=== PATIENT | female | born 1945 | race Caucasian/White ===

== ENCOUNTER 2019-12-29 15:44 | Outpatient (CLI) | payer MEDICARE, SELFPAY ==
--- NOTE | ~2019-12-29 | XR_ITS ---
XR hip RT min 3V w AP pelvis DATE: 12/29/2019 16:18 INDICATION: Right hip pain. No injury. Bilateral hip replacements. Sacroiliitis. TECHNIQUE: AP pelvis. AP, lateral, crosstable lateral views of right hip COMPARISON: 10/27/2014 right hip MRI arthrogram FINDINGS: Status post lower lumbar laminectomy. Status post posterior and interbody lumbar spinal fus ion. Mild osteitis pubis. The sacroiliac joints appear intact. No pelvic fracture or bone destruction. Status post bilateral total hip replacement. No fracture or dislocation of the right hip. [facility] of lumbar or hip hardware failure, displacement or loosening is noted. IMPRESSION: Status post bilateral total hip arthroplasties Posterior and interbody lumbar spinal fusion Mild osteitis pubis Reviewed, dictated and finalized at location A.
== END 2019-12-29 15:45 | disposition home or self-care (01) ==
LOC: ANHIMG 15:49
PROVIDERS: PCP Internal Medicine; Visit Provider Internal Medicine
DX: M46.1 Sacroiliitis, not elsewhere classified (principal); M25.551 Pain in right hip; Z96.643 Presence of artificial hip joint, bilateral; Z98.1 Arthrodesis status; M86.8X8 Other osteomyelitis, other site
CPT/HCPCS: 73502

== ENCOUNTER 2020-01-03 15:45 | Outpatient (CLI) | payer MEDICARE, SELFPAY ==
--- NOTE | ~2020-01-03 | XR_ITS ---
EXAMINATION: XR sacrum coccyx min 2V, XR lumbar spine 6V w bending EXAM DATE: 01/03/2020 16:26 (accession [id number]), 01/03/2020 16:27 (accession [id number]) INDICATION: Low back pain radiating to right hip. TECHNIQUE: Lumber spine frontal, lateral, bilateral oblique projections. Coned down frontal and lat eral L5-S1 lumbar projections for interpretation. Additional lateral flexion and lateral extension p rojections obtained. Sacral frontal, frontal and lateral, lateral projections obtained. There are no prior studies for comparison. FINDINGS: There is moderate bilateral sacroiliac primary osteoarthritis. There is left iliac crest bone harves t site. Sacrum, sacroiliac joints, sacral arcuate lines are intact. Bilateral hip replacements. There is posterior fusion L2-L4, interbody fusion L2-S1. Hardware appears intact and in position. The re is 5 mm anterolisthesis L4 on L5, 4 mm anterolisthesis L3 on L4, 3 mm retrolisthesis L2 on L3. The subluxations do not appear to change much between the flexion and extension projections. Mild to mod erate lower thoracic disc disease. Lower lumbar laminectomies. Mild lumbar levoscoliosis. IMPRESSION: 1. Extensive surgical changes. 2. Mild lumbar levoscoliosis. 3. Moderate sacroiliac osteoarthritis. Reviewed, dictated and finalized at location A. IMPRESSION: 1. Extensive surgical changes. 2. Mild lumbar levoscoliosis. 3. Moderate sacroiliac osteoarthritis.
== END 2020-01-03 15:46 | disposition home or self-care (01) ==
LOC: ANHIMG 15:48
PROVIDERS: PCP Internal Medicine; Visit Provider Internal Medicine
DX: M54.5 Low back pain (principal); M25.551 Pain in right hip; Z98.890 Other specified postprocedural states; M41.86 Other forms of scoliosis, lumbar region; M47.898 Other spondylosis, sacral and sacrococcygeal region
CPT/HCPCS: 72114; 72220

== ENCOUNTER → 2020-02-14 12:11 | Outpatient (CLI) | payer MEDICARE, SELFPAY ==
--- NOTE | ~2020-02-14 | DEXA_ITS ---
Bone Density Report Name: Macie Briseno Age: 74 Sex: Female Ethnicity: White Date of : 1945 Indication: postmenopausal; screening for osteoporosis; height loss; Referring Provider: Enmanuel Gan Study: Bone densitometry was performed. Exam Date: February 14, 2020 Accession number: [id number] Bone Density: Region BMD T-score Z-score Classification Total Forearm (Left) 0.514 -1.0 1.5 1/3 Forearm (Left) 0.646 -0.7 1.8 UD Forearm (Left) 0.365 -0.9 0.9 Total Forearm (Right) 0.528 -0.7 1.8 1/3 Forearm (Right) 0.645 -0.7 1.8 UD Forearm (Right) 0.370 -0.8 1.0 World Health Organization criteria for BMD impression classify patients as: Normal (T-score at or above -1.0), Osteopenia (T-score between -1.0 and -2.5), or Osteoporosis (T-score at or below -2.5). Clinical Information Provided by Patient: Has used the following medications: Vitamin D, Calcium Patient maximum height was 66 Menopause Age: 56 Drinks caffeinated beverages Onset of menses at age 14 Number of children 0 Impression: The patient has normal bone mass. Discussion: BONE DENSITY IS ABOVE THE MINIMUM DESIRABLE LEVEL AT ALL SKELETAL SITES TESTED. This patient?s bone mineral density is above the minimum desirable level (T-score -1.0 or better) at all sites measured. The patient should follow a healthful lifestyle (good nutrition with adequate calcium and vitamin D, and appropriate weight-bearing exercise). Follow-Up: Consider repeating this study in 5 years or sooner if there is some new clinical indication. Reported by: JENNIFER on 02/14/2020 1:38:00 PM. Reviewed, dictated and finalized at location Miguel VALENZUELA
--- NOTE | ~2020-02-14 | MM_ITS ---
EXAMINATION: MM screening silvia BI w dari HISTORY: Screening mammogram TECHNIQUE: Craniocaudal and mediolateral oblique 3-D tomosynthesis images were obtained and synthetic 2-D images were generated. CAD analysis was submitted and interpreted. COMPARISON: Comparison to multiple prior studies sequentially, with oldest reviewed study dated 05/28. BREAST PARENCHYMAL COMPOSITION: Breast composed of scattered areas of fibroglandular density FINDINGS: There is developing asymmetries in the lower inner quadrant of the right breast. There are developing clustered calcifications in the upper outer quadrant of the left breast. IMPRESSION: 1. Developing right breast asymmetries and clustered nonspecific left breast calcifications. 2. Additional mammographic views and possible breast ultrasound are recommended. BI-RADS Category 0: Incomplete: Needs additional imaging evaluation. Reviewed, dictated and finalized at location A. IMPRESSION: 1. Developing right breast asymmetries and clustered nonspecific left breast ca lcifications. 2. Additional mammographic views and possible breast ultrasound are recommended . BI-RADS Category 0: Incomplete: Needs additional imaging evaluation.
== END ==
PROVIDERS: PCP Internal Medicine; Visit Provider Internal Medicine
DX: Z12.31 Encounter for screening mammogram for malignant neoplasm of breast (principal); Z78.0 Asymptomatic menopausal state; R92.8 Other abnormal and inconclusive findings on diagnostic imaging of breast
CPT/HCPCS: 77063; 77067; 77081

== ENCOUNTER 2020-03-01 08:04 | Outpatient (CLI) | payer MEDICARE, SELFPAY ==
[2020-03-04 08:13] LABS: C-Peptide 2.09 ng/mL (0.80-3.85); Triiodothyronine T3 Free 2.7 pg/mL (2.3-4.2)
[2020-03-09 06:31] LABS: Insulin Level Total 8.2 uIU/mL (<=19.6)
== END 2020-03-01 08:05 | disposition home or self-care (01) ==
PROVIDERS: Visit Provider Internal Medicine
DX: R94.6 Abnormal results of thyroid function studies (principal); R73.03 Prediabetes
CPT/HCPCS: 36415; 83525; 84481; 84681

== ENCOUNTER → 2020-03-07 09:26 | Outpatient (CLI) | payer MEDICARE, SELFPAY ==
--- NOTE | ~2020-03-07 | MMUS_ITS ---
EXAMINATION: MM diagnostic mammo BI, US breast RT limited HISTORY: Follow-up right breast asymmetries and left breast calcifications TECHNIQUE: Additional 3-D tomosynthesis images of the breasts were performed and synthetic 2-D images were generated. CAD analysis was submitted and interpreted. High resolution right breast ultrasound was performed. COMPARISON: Comparison to multiple prior studies sequentially, with oldest reviewed study dated 05/28. BREAST PARENCHYMAL COMPOSITION: The breasts are heterogenously dense, which may obscure small masses. FINDINGS: MAMMOGRAPHIC FINDINGS: The focal asymmetries in the right breast medially and inferiorly are less apparent with spot carlos mukesh and mediolateral views. No discrete mass or architectural distortion is seen. Left breast calcif ications have a relatively monomorphic appearance and are likely benign. ULTRASOUND: Limited right breast ultrasound: Normal heterogeneous echotexture without focal mass. IMPRESSION: 1. Probable benign right breast asymmetries and left breast calcifications. 2. Recommend 6 month follow-up diagnostic bilateral mammogram. BI-RADS category 3, probably benign findings. Reviewed, dictated and finalized at location A. IMPRESSION: 1. Probable benign right breast asymmetries and left breast calcifications. 2. Recommend 6 month follow-up diagnostic bilateral mammogram. BI-RADS category 3, probably benign findings.
--- NOTE | ~2020-03-07 | US_ITS ---
EXAMINATION: US thyroid DATE: 03/07/2020 10:31 INDICATION: Abnormal thyroid function test. TECHNIQUE: Multiple ultrasound images of the thyroid were obtained. COMPARISON: None. FINDINGS: The right thyroid lobe measures 3.9 x 1.3 x 1.4 cm. The left thyroid lobe measures 4.0 x 1.3 x 1.3 c m. In the left thyroid lobe, there is a 7 mm solid, very hypoechoic, twpjh-kchq-vuft nodule with lob ulated margin without echogenic foci (TI-RADS TR5). In the left thyroid lobe, there is a 5 mm solid, hypoechoic, zqrmy-urmq-jbkj nodule with ill-defined margin without echogenic foci (TR4). In the right thyroid lobe, there is a 9 mm solid, very hypoechoic, ocrvu-obyt-rtmv nodule with lobulated margin w ithout echogenic foci (TR5). IMPRESSION: 1. Small thyroid nodules. Thyroid ultrasound is recommended in one year. Reviewed, dictated and finalized at location B.
== END ==
PROVIDERS: PCP Internal Medicine; Visit Provider Internal Medicine
DX: R92.8 Other abnormal and inconclusive findings on diagnostic imaging of breast (principal)
CPT/HCPCS: 76536; 76642; 77066

== ENCOUNTER 2020-06-27 14:27 | Outpatient (CLI) | payer MEDICARE, SELFPAY ==
[2020-06-27 15:11] LABS: Basophils Absolute Auto 0.1 K/mm3 (0.0-0.1); Basophils Percent Auto 0.6 % (0.2-1.2); Eosinophils Absolute Auto 0.2 K/mm3 (0-0.3); Eosinophils Percent Auto 2.3 % (0-4.4); Hemoglobin 16.4 g/dL (12.0-15.0); Immature Granulocyte Absolute 0.06 K/mm3 (0.00-0.031); Immature Granulocyte Percent A 0.7 % (0-0.5); Lymphocytes Absolute Auto 2.99 K/mm3 (0.9-3.2); Mean Corpuscular HGB Conc 34.9 g/dl (32-36); Mean Corpuscular Hemoglobin 29.7 pg (26-34); Mean Corpuscular Volume 85.1 fl (80-100); Mean Platelet Volume 9.5 fl (7.4-10.4); Monocytes Absolute Auto 0.7 K/mm3 (0.1-0.6); Monocytes Percent Auto 7.7 % (2.6-8.5); Neutrophils Absolute Auto 4.8 K/mm3 (1.3-6.7); Neutrophils Percent Auto 54.7 % (45.5-73.1); Platelet Count Result 372 k/mm3 (150-375); Red Blood Count 5.52 M/mm3 (4.2-5.4); Red Cell Distribution Width 12.9 % (11.5-14.5); White Blood Count 8.8 K/mm3 (4.5-10.0)
[2020-06-27 15:29] LABS: Anion Gap 7 mmol/L (8-16); Blood Urea Nitrogen 23 mg/dL (7-17); Calcium 9.6 mg/dL (8.4-10.2); Carbon Dioxide 34 mmol/L (22-30); Chloride 94 mmol/L (98-107); Estimated Glomerular Filt Rate > 60; Glucose 108 mg/dL (65-105); Potassium 3.3 mmol/L (3.4-5.0); Sodium 135 mmol/L (137-145)
== END 2020-06-27 14:28 | disposition home or self-care (01) ==
PROVIDERS: PCP Internal Medicine; Visit Provider Internal Medicine
DX: Z51.81 Encounter for therapeutic drug level monitoring (principal); Z79.899 Other long term (current) drug therapy; R07.89 Other chest pain
CPT/HCPCS: 36415; 80048; 84484; 85025

== ENCOUNTER 2020-06-27 16:30 | Observation (INO) | payer MEDICARE, SELFPAY ==
[2020-06-27] VITALS (23 sets, daily range): BP systolic 117–150; BP diastolic 64–94; PULSE 60–108; RESP 10–26; TEMP 36.4–36.6; O2SAT 92–98; BMI 28.3
--- NOTE | ~2020-06-27 | NM_ITS ---
EXAMINATION: NM christi stress w perfusion DATE: 06/28/2020 15:17 INDICATION: Chest pain. TECHNIQUE: Rest images were obtained following intravenous administration of 10.8 mCi Tc99m tetrofosm in (Myoview). The patient was infused intravenously with Lexiscan (regadenoson). Then, 33.3 mCi Tc99m tetrofosmin (Myoview) was administered intravenously, and stress images were obtained. Data was elijah nstructed into short axis and horizontal and vertical long axis SPECT images. Gated SPECT images were also obtained. COMPARISON: None. FINDINGS: There is no definite reversible or fixed perfusion abnormality to suggest ischemia or infar ction. There is no segmental wall motion abnormality. Left ventricular ejection fraction measures > 70%. IMPRESSION: 1. No definite ischemia or infarct. 2. Normal left ventricular ejection fraction measuring >70%. Reviewed, dictated and finalized at location A. OLL AND BENEFITS ASSISTANT
--- NOTE | ~2020-06-27 | XR_ITS ---
EXAMINATION: XR chest 1V portable DATE: 06/27/2020 17:18 INDICATION: Chest pain. Dizziness. TECHNIQUE: A single frontal view of the chest was obtained. COMPARISON: Chest 2 views 10/26/18, chest CT 02/12/2018 FINDINGS: There is mild atelectasis in left lower lung zone. No pleural effusion or pneumothorax. The heart size is normal. Surgical clips in the right upper quadrant are likely from cholecystectomy. IMPRESSION: 1. Mild atelectasis in left lower lung zone. Reviewed, dictated and finalized at location A. ING SUPERVISOR
--- NOTE | 2020-06-27 16:34 | ECG_ITS ---
Measurements Intervals [place] Rate: 93 P: 7 OH: 156 QRS: 41 QRSD: 91 T: 111 QT: 362 QTc: 451 Interpretive Statements SINUS RHYTHM SUPRAVENTRICULAR TRIGEMINY BORDERLINE ST-T WAVE ABNORMALITY- HIGH LATERAL LEADS BASELINE ARTIFACT- AVL ABNORMAL ECG Electronically Signed On 06-27-2020 19:49:22 DRIVER SALES by Ajit Champagne D.O.
[2020-06-27 17:05] LABS: INR 0.9; Prothrombin Time 13.1 Seconds (11.1-14.7)
[2020-06-27 17:06] LABS: Partial Thromboplastin Time 25.6 SECONDS (22.3-36.8)
[2020-06-27 17:25] LABS: Troponin I 0.103 ng/mL (0.000-0.034)
--- NOTE | 2020-06-27 17:32 | ED.GENADULT ---
HPI - General Adult General Chief complaint: Recheck/Abnormal Lab/Rx Stated complaint: Abnormal Blood Test Time Seen by Provider: 06/27/20 16:34 Source: RN notes reviewed History of Present Illness HPI narrative: Patient presents emergency department from home for chest pain. Patient states she awoke at approximately 3 AM yesterday with pain in the midsternal chest described as a pressure states the pain did not radiate. 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 Houston at [facility]. She went and saw her PCP Dr. Pa today and he had drawn a troponin that was elevated and sent the patient to the ED for further evaluation patient states she is had no pain since this a.m. she denies any fevers or chills shortness of breath or any other symptoms Related Data Home Medications Medication Instructions Recorded Confirmed alprazolam 0.5 mg tablet 0.5 mg PO TID 10/03/19 06/27/20 calcium polycarbophil 625 mg tablet 1,250 mg PO DAILY 10/03/19 06/27/20 cetirizine 10 mg tablet 5 mg PO DAILY PRN 10/03/19 06/27/20 cholecalciferol (vitamin D3) 125 5,000 unit PO DAILY 10/03/19 06/27/20 mcg (5,000 unit) capsule coenzyme Q10 100 mg capsule 100 mg PO DAILY 10/03/19 06/27/20 fluticasone propionate 50 2 spray NASAL DAILY 10/03/19 06/27/20 mcg/actuation nasal spray,suspension inulin 2 gram chewable tablet gm PO 10/03/19 06/27/20 magnesium citrate 100 mg tablet 100 mg PO BID 10/03/19 06/27/20 turmeric root extract 500 mg 500 mg PO TID 10/03/19 06/27/20 capsule vitamin B complex 1 tablet PO DAILY 10/03/19 06/27/20 Allergies Allergy/AdvReac Type Severity Reaction Status Date / Time adhesive tape Allergy Unknown RASH Verified 06/27/20 13:39 Sulfa (Sulfonamide Allergy Unknown Rash Verified 06/27/20 13:39 Antibiotics) gabapentin AdvReac Mild Swelling Verified 06/27/20 13:39 Review of Systems Review of Systems: Narrative: Gen.: Denies fevers or chills ENT: Denies congestion Respiratory: Denies shortness of breath or cough CV: See HPI GI: Denies abdominal pain nausea, emesis or diarrhea Musculoskeletal: Denies back pain or muscle pain Neuro: Denies numbness, tingling, weakness or focal weakness Skin: Denies rash Except as documented, all other systems reviewed and negative [facility] Past Medical History Medical History BMI 28.0-28.9,adult BMI 29.0-29.9,adult Borderline abnormal TFTs Chest pain Chronic right hip pain Cochlear implant in place Colon cancer screening Depression Dizziness DJD (degenerative joint disease) Encounter for screening mammogram for malignant neoplasm of breast Encounter to establish care Follow up Hair loss Hyperlipidemia Menieres disease Microvascular angina 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 Lung cancer Social History Social History Social History: non smoker Smoking status: Never smoker Alcohol intake: current Substance use: never Exam Narrative: Exam Narrative: APPEARANCE: No acute distress, nontoxic, resting in bed EYES: EOMI HEENT: Normocephalic, atraumatic, OMM RESPIRATORY: No respiratory distress Clear to auscultation bilaterally with no rhonchi wheezing or rales. CARDIOVASCULAR: Regular rate and rhythm without murmurs rubs or gallops. ABDOMINAL: S
[2020-06-27] MEDS: ASPIRIN 81 MG CHEWABLE TABLET 324 MG PO (17:45)
--- NOTE | 2020-06-27 17:55 | PC.NURSE ---
patient here in ED room 10 with c/o chest discomfort around 0300 today. was seen by PCP. had outpatient labs done that reportedly showed elevated trop level. patient sent to ED. labs here drawn at 1630 per patient. resting on stretcher. alert. on organic preparation technician. EKG done. reviewed current treatment plan with patient and expected wait time.
--- NOTE | 2020-06-27 18:30 | PC.NURSE ---
SL inserted. additional labs drawn. patient aware she is NPO for now. denies chest pain. on mold preparer. denies needs. call light in reach.
[2020-06-27] MEDS: POTASSIUM CHLORIDE 20 MEQ TABLET PO (19:01)
--- NOTE | 2020-06-27 19:20 | PC.NURSE ---
reviewed lab results with patient again. trop elevated. patient verbalizes understanding. aware of plan for admission. pain free. alert. oriented. notified her family. waiting for further orders from MD and for bed assignment upstairs.
[2020-06-27 19:39] LABS: Troponin I 0.107 ng/mL (0.000-0.034)
--- NOTE | 2020-06-27 19:50 | PC.NURSE ---
resting on stretcher. updated on expected wait time. denies needs. on monitor. has call light in reach.
--- NOTE | 2020-06-27 20:20 | PM.IMHP ---
H&P: HPI History of Present Illness Date/Time: 06/27/20 20:20 Chief complaint: Chest pain. Narrative: Macie Briseno is a very pleasant 74-year-old female with history of microvascular angina who presented to the emergency department earlier today for further evaluation of chest pain. She had a cochlear implant last week and was given a Medrol Dosepak thereafter ?which gave me a lot of stomach discomfort.? It sounds as though she has suffered from indigestion since that time and this morning she was wakened from sleep at approximately 03:00 with discomfort in her back and mid to low sternal region. She describes to me a burning discomfort however apparently reported to the ED physician that she was having pressure. She got out of bed and took her diltiazem and within about an hour the discomfort went away and it has not returned. She spoke with her primary care provider this morning regarding this incident and he saw her in clinic in ordered a troponin which came back elevated, and thus she was sent to the emergency department. Repeat troponin was slightly more elevated and she is being admitted in this setting. She has no complaints at the time my evaluation and specifically denies sweats, chest pain, pleuritic pain, shortness of breath, nausea, and vomiting. No melena or hematochezia. Review of Systems Review of Systems: Narrative: Twelve systems were reviewed with pertinent positives and negatives as per HPI. No fever, chills, or sweats. She denies recent cold and flu symptoms. She had a cochlear implant on the left just last week and is amazed by the amount that she can hear. She lost her hearing due to Meniere's disease bilaterally many years ago. Her director of institutional research is Dr. Tg Houston at [facility], and I believe she last saw her in May 2019 prior to a low back surgery. She rarely has issues with angina although it is been increasing in frequency over the past year or so. Except as documented, all other systems were reviewed and are negative. [facility] Past Medical History Medical History (Updated 06/28/20 @ 00:42 by Eliana Syed PA-C) Chronic right hip pain Degenerative joint disease Depression Hyperlipidemia Hypertension Menieres disease Microvascular angina Peripheral neuropathy Post menopausal syndrome Pre-diabetes Sacroiliitis Vitamin D deficiency Surgical History Surgical History (Updated 06/28/20 @ 00:42 by Eliana Syed PA-C) Cochlear implant in place (~05/2020) Left cochlear implant. History of back surgery Fused from L2-S1. History of cholecystectomy History of total replacement of both hip joints Family History Family History Mother , Lung cancer, smoker. Lung cancer Social History Social History (Updated 06/28/20 @ 00:42 by Eliana Syed PA-C) Social History: Surrogate decision maker: Sunita Miranda, spouse. Code status: Full code. Smoking status: Never smoker Alcohol intake: current Alcohol use details: Drinks alcohol socially and in moderation. Substance use: never Additional living arrangements comments: Resides in [place] with her , dog, and 2 cats. They have no children. 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 Gender identity (if verbalized by the patient): Female Spiritual care concerns: No Meds Home Medications and Allergies Home Medications Medication Instructions Recorded Confirmed Type alprazolam 0.5 mg tablet 0.5 mg PO TID 10/03/19 06/27/20 History calcium polycarbophil 625 mg tablet 1,250 mg PO DAILY 10/03/19 06/27/20 History cetirizine 10 mg tablet 5 mg PO DAILY PRN 10/03/19 06/27/20 History cholecalciferol (vitamin D3) 125 5,000 unit PO DAILY 10/03/19 06/27/20 History mcg (5,000 unit) capsule coenzyme Q10 100 mg capsule 100 mg PO DAILY 10/03/19 06/27/20 History fluti
--- NOTE | 2020-06-27 20:45 | PC.NURSE ---
spoke with Mariann HANEY in IMU. room is not clean. she has contacted housekeeping several times. no questions about patient's SBAR. will call us when the bed is clean. broker in charge is aware. patient notified. patient getting anxious. lunch box and sprite given. on child monitor. still denies any chest pain. alert. oriented. on child monitor.
--- NOTE | 2020-06-27 21:46 | ADMGEN ---
This patient, Macie Briseno, was admitted to IMU Room 202-01. Patient/family oriented to hospital policies and general routines including ID bracelet, bed and alarms, visiting hours, pain management, procedures, bathroom and other care routines, personal items, smoking policy, room service/diet, and visiting hours. Information on how to activate the Rapid Response Team has been discussed. Patient/Family are encouraged to report perceived risks to care and to ask questions if they do not understand what they are told or what they should do.
[2020-06-27 22:56] LABS: Troponin I 0.091 ng/mL (0.000-0.034)
[2020-06-28] VITALS (15 sets, daily range): BP systolic 105–130; BP diastolic 47–88; PULSE 70–111; RESP 14–18; TEMP 35.9–36.3; O2SAT 93–100
[2020-06-28] MEDS: SODIUM CHLORIDE 0.9% IV 1,000 ML 125 ML IV CONT (01:22)
[2020-06-28 05:02] LABS: Basophils Percent Auto 0.5 % (0.2-1.2); Eosinophils Absolute Auto 0.3 K/mm3 (0-0.3); Eosinophils Percent Auto 3.5 % (0-4.4); Hematocrit 40.3 % (37.0-47.0); Hemoglobin 14.3 g/dL (12.0-15.0); Immature Granulocyte Absolute 0.04 K/mm3 (0.00-0.031); Immature Granulocyte Percent A 0.5 % (0-0.5); Lymphocytes Absolute Auto 3.19 K/mm3 (0.9-3.2); Lymphocytes Percent Auto 43.2 % (18.3-44.2); Mean Corpuscular HGB Conc 35.5 g/dl (32-36); Mean Corpuscular Hemoglobin 29.4 pg (26-34); Mean Corpuscular Volume 82.8 fl (80-100); Mean Platelet Volume 9.6 fl (7.4-10.4); Monocytes Absolute Auto 0.7 K/mm3 (0.1-0.6); Monocytes Percent Auto 8.8 % (2.6-8.5); Neutrophils Absolute Auto 3.2 K/mm3 (1.3-6.7); Neutrophils Percent Auto 43.5 % (45.5-73.1); Platelet Count Result 347 k/mm3 (150-375); Red Blood Count 4.87 M/mm3 (4.2-5.4); Red Cell Distribution Width 12.6 % (11.5-14.5); White Blood Count 7.4 K/mm3 (4.5-10.0)
[2020-06-28 05:42] LABS: Anion Gap 5 mmol/L (8-16); Blood Urea Nitrogen 21 mg/dL (7-17); Calcium 8.6 mg/dL (8.4-10.2); Carbon Dioxide 33 mmol/L (22-30); Chloride 98 mmol/L (98-107); Estimated CRCL calculation 61 ml/min; Estimated Glomerular Filt Rate > 60; Glucose 96 mg/dL (65-105); Sodium 136 mmol/L (137-145)
[2020-06-28] MEDS: CHOLECALCIFEROL 1,000 UNITS TABLET 5000 UNITS PO (10:03)
[2020-06-28] MEDS: ASPIRIN 325 MG TABLET PO (10:03)
[2020-06-28] MEDS: ATORVASTATIN 20 MG TABLET PO (10:04)
[2020-06-28] MEDS: VITAMIN B COMPLEX CAPSULE 1 CAP PO (10:04)
[2020-06-28] MEDS: calcium polycarbophiL 625 MG TABLET 1250 MG PO (10:04)
[2020-06-28] MEDS: dilTIAZem HCL CD 180 MG CAP.ER.24H PO (10:04)
[2020-06-28] MEDS: DULoxetine HCL 60 MG CAPSULE.DR PO (10:05)
--- NOTE | 2020-06-28 10:13 | ECHO_ITS ---
Patient Info Name: Macie Briseno Age: 74 years : 1945 Gender: Female Ht: 64 in Wt: 163 lbs BSA: 1.85 m2 HR: 78 bpm BP: 120 / 64 mmHg Heart Rhythm: Sinus Rhythm Technical Quality: Fair Exam Date: 06/28/2020 10:55 AM Exam Location: [facility] Pulmonary Patient Status: Inpatient Admit Date: 06/27/2020 Staff Ordering Physician: Frankie Hawthorne MD Economic Research Analyst: Natividad Alvarez RDCS Attending Provider: Deepti Weathers MD Referring Physician: Christoph MORRIS; Exam Type: CA echo dop color flow w con Study Info Indications - elevated trops cp Complete two-dimensional, color flow and Doppler transthoracic echocardiogram is performed with contrast to opacify the left ventricle and to improve the deliniation of the left ventricle endocardial borders. Contrast/Agitated Saline Contrast/Ag. Saline: Definity Amount: 2.00 ml Administered By: Shiv Oates, RN Summary 1. Left ventricular systolic function is hyperdynamic, estimated at >70%. 2. There is mildly increased left ventricular wall thickness more prominent mid to apical LV but not clearly consistent with apical hypertrophic cardiomyopathy. 3. The left ventricular diastolic function is grade I diastolic dysfunction. 4. There is no aortic valve stenosis. 5. There is mild mitral valve regurgitation. 6. There is trace tricuspid valve regurgitation. 7. Unable to estimate PA systolic pressure due to poor spectral resolution of tricuspid regurgitant jet velocity. 8. There is small pericardial effusion with fibrinous material within the pericardial space. Left Ventricle Left ventricular chamber dimension is normal. Left ventricular systolic function is hyperdynamic, estimated at >70%. There is mildly increased left ventricular wall thickness more prominent mid to apical LV but not clearly consistent with apical hypertrophic cardiomyopathy. The left ventricular diastolic function is grade I diastolic dysfunction. Right Ventricle Right ventricular chamber dimension is normal. Right ventricular systolic function is normal. Left Atria Left atrial chamber dimension is normal. Right Atria Right atrial chamber dimension is normal. Aortic Valve The aortic valve is trileaflet. There is mild aortic valve sclerosis. There is no aortic valve stenosis. There is no aortic valve regurgitation. Pulmonic Valve The pulmonic valve is not well visualized. There is trace pulmonic regurgitation. Mitral Valve The mitral valve has normal leaflets. There is mild mitral valve regurgitation. Tricuspid Valve The tricuspid valve leaflets are normal. There is trace tricuspid valve regurgitation. Unable to estimate PA systolic pressure due to poor spectral resolution of tricuspid regurgitant jet velocity. Pericardium/Pleural The pericardium appears normal. There is small pericardial effusion with fibrinous material within the pericardial space. Inferior Vena Cava Normal inferior vena cava with >50% collapse upon inspiration consistent with normal right atrial pressure, 5 mmHg. Aorta The aortic root size at the sinus of Valsalva is normal. Left Ventricular Outflow Tract Name Value Normal LVOT 2D LV
--- NOTE | 2020-06-28 11:25 | EST_ITS ---
Patient Info Name: Macie Briseno Age: 74 years : 1945 Gender: Female Ht: 64 in Wt: 163 lbs BSA: 1.85 m2 Heart Rhythm: Sinus Rhythm Exam Date: 06/28/2020 2:00 PM Exam Location: [facility] Stress Patient Status: Inpatient Admit Date: 06/27/2020 Staff Ordering Physician: Ashlee Abdul APRN Attending Provider: Deepti Weathers MD Exercise Technologist: Yue Blackwell RDCS Exam Type: CA stress christi w NM Study Info Indications - elevated troponin A regadenoson stress test was performed. Summary 1. Nondiagnostic upsloping ST deviation which did not meet strict criteria for reversible myocardial ischemia. 2. Frequent PACs noted at rest and during stress. 3. Please correlate with nuclear medicine images, reported separately. 4. Chest tightness during stress associated with shortness of breath resolved with Aminophylline 3:36 min into recovery. Protocol: Lexiscan Stress ECG Details Stage: REST Duration (min): 1 min : 5 sec HR (bpm): 88 SBP (mmHg): 121 DBP (mmHg): 49 Stage: REST Duration (min): 4 min : 32 sec HR (bpm): 84 SBP (mmHg): 121 DBP (mmHg): 49 Stage: STAGE 1 Duration (min): 1 min : 0 sec HR (bpm): 96 SBP (mmHg): 125 DBP (mmHg): 59 Stage: RECOVERY Duration (min): 1 min : 0 sec HR (bpm): 104 SBP (mmHg): 117 DBP (mmHg): 53 Stage: RECOVERY Duration (min): 2 min : 0 sec HR (bpm): 100 SBP (mmHg): 114 DBP (mmHg): 47 Stage: RECOVERY Duration (min): 3 min : 0 sec HR (bpm): 103 SBP (mmHg): 105 DBP (mmHg): 47 Stage: RECOVERY Duration (min): 4 min : 0 sec HR (bpm): 102 SBP (mmHg): 105 DBP (mmHg): 47 Stage: RECOVERY Duration (min): 5 min : 0 sec HR (bpm): 98 SBP (mmHg): 125 DBP (mmHg): 59 Stage: RECOVERY Duration (min): 5 min : 49 sec HR (bpm): 94 SBP (mmHg): 125 DBP (mmHg): 59 Rest HR: 84 bpm Peak HR: 106 bpm Rest Sys BP: 121 mmHg Peak Sys BP: 125 mmHg Max Pred HR: 147 bpm % Max Pred HR: 72 % Target HR: 125 bpm Max RPP: 13,250 bpm*mmHg BP Response: Normal blood pressure response Termination Reason: Completed protocol Cardiac Symptoms: Chest discomfort, Shortness of breath Total Time: 1 min : 0 sec Rest Rosario BP: 49 mmHg Peak Rosario BP: 59 mmHg Total Dose: 0.4 mg Resting ECG Normal sinus rhythm. Nonspecific ST changes. Stress ECG Nondiagnostic upsloping ST deviation which did not meet strict criteria for reversible myocardial ischemia. Arrhythmias Frequent PACs noted at rest and during stress. Report Signatures Amended by Frankie Hawthorne on 06/28/2020 15:28
[2020-06-28] MEDS: PERFLUTREN LIPID MICROSPHERES 1.5 ML VIAL DILUTED TO 10 ML TOTAL VOLUME IV PUSH (11:54)
--- NOTE | 2020-06-28 13:30 | PM.CNCAR ---
Assessment and Plan Assessment and plan (1) Chest pain: Code(s): R07.9 - Chest pain, unspecified Status: Acute Assessment and Plan: patient relates being treated for microvascular angina. She had a negative stress test May [address] Houston. symptoms had essentially resolved with initiation of diltiazem which she takes consistently. Chest pain similar to prior symptoms although occurred at rest resolved once again with diltiazem. She has had no symptoms in nearly 36 hours, no acute ischemic changes on EKG, and a flat mild troponin elevation at 0.1. Bedside 2D echocardiogram questionable for apical hypokinesis. Discussed with the patient in detail further options including echocardiogram, invasive versus noninvasive ischemic evaluation, and/or if no other alternative explanation found possible cardiac MRI as an outpatient. No clinical history suggestive of myocarditis. Will pursue Lexiscan nuclear stress test to assess for myocardial ischemia with recommendations to follow. If unremarkable patient remains asymptomatic anticipate discharge home to follow up with Dr. Houston as an outpatient. Dr. Houston also felt proceeding with Lexiscan would be most prudent approach. -Add ASA 81mg daily. Cont statin and home CV med tx. -Repeat K+ - Further recommendations follow after Lexiscan nuclear stress test and 2D echocardiogram. (2) Elevated troponin: Code(s): R77.8 - Other specified abnormalities of plasma proteins Status: Acute Assessment and Plan: flat curve, not consistent with acute coronary syndrome as patient is asymptomatic and without acute ischemic changes by EKG. Precise etiology unclear at this time. even if secondary to significant coronary basal spasm troponin trend greater than 24 hours later is not clearly consistent. (3) Hypertension: Code(s): I10 - Essential (primary) hypertension Status: Acute Assessment and Plan: Fair control. Continue current medical therapy. (4) Hyperlipidemia: Qualifiers: Hyperlipidemia type: mixed hyperlipidemia Qualified Code(s): E78.2 - Mixed hyperlipidemia Code(s): E78.5 - Hyperlipidemia, unspecified Status: Acute Assessment and Plan: Continue atorvastatin. Check fasting lipid profile. History of Present Illness History of Present Illness Consult date/time: Date of service:06/28/20 13:30 Cardiology consultation at the request of Eliana Syed of the [facility] for my opinion regarding chest pain and elevated Troponin. Requesting physician: Eliana Syed PA-C Consult reason: chest pain Reason For Visit: Chest pain. Narrative: Patient is a very pleasant 74-year-old female with a history of microvascular angina followed by Dr. Houston as an outpatient, hypertension, dyslipidemia who was in her usual state of health when she presented with rather acute onset of chest discomfort approximately 3:00 a.m. evening prior to presentation. Patient states she has chronic back pain and awoke unable to sleep as a result prompting her to take Tylenol. She states approximately 15 minutes later she developed fairly severe burning discomfort in the mid to lower sternal region without radiation. Due to its persistence and similar to prior microvascular angina she took her diltiazem. She states within an hour the symptoms resolved and have not recurred. She denied exertional chest discomfort at any time over the past year or so. She admits she has been somewhat more fatigued with mild dyspnea with activity for the past several months she attributes to decreased activity due to pandemic restrictions. She denies particular limitation and otherwise feels fairly well. She had been evaluated by her PCP who ordered a troponin which returned 0.1 as an outpatient which the recommendation to present to the ER was made. Serial troponins were again 0.1, 0.1, and 0.91. She has no
--- NOTE | 2020-06-28 14:09 | PM.IMPN ---
Progress Note: A&P Assessment and Plan (1) Chest pain: Code(s): R07.9 - Chest pain, unspecified Status: Acute Assessment and Plan: Seen by cardiology, pt to have a lexiscan today. (2) Elevated troponin: Code(s): R77.8 - Other specified abnormalities of plasma proteins Status: Acute Assessment and Plan: trop 0.1, 0.09, cardiology rounding awaiting lexiscan results (3) Microvascular angina: Code(s): I20.8 - Other forms of angina pectoris Status: Acute Assessment and Plan: known history (4) Hypertension: Code(s): I10 - Essential (primary) hypertension Status: Chronic Assessment and Plan: Bp is 129/88, continue to monitor BP in the hospital. (5) Electrolyte abnormality: Code(s): E87.8 - Other disorders of electrolyte and fluid balance, not elsewhere classified Status: Acute Assessment and Plan: potassium is 3, sodium is 136 Subjective Date/time seen: 06/28/20 14:09 Interval history: Finn is a very pleasant 74-year-old female with history of microvascular angina who presented to the emergency department earlier today for further evaluation of chest pain. Pt to have lexiscan today.Pt is a pt of DR Houston. Review of Systems Review of Systems: All systems reviewed & are unremarkable except as noted in HPI and below Exam Const: General: cooperative and healthy appearing; No in distress Nutritional Appearance: overweight Orientation/consciousness: oriented to person HENMT: Head: normal to inspection Resp: Effort & Inspection: no respiratory distress Auscultation: no rhonchi and no wheezes Cardio: Rate: regular rate Rhythm: regular rhythm GI: Inspection: normal to inspection GI Palp: No abdominal tenderness, No Guarding due to palpation present (GI) and No Hepatomegaly present Auscultation: normal bowel sounds Neuro: General: oriented to person Objective Data Vital Signs Vital Signs: Vital Signs - 24 hr 06/27/20 16:45 06/27/20 17:31 06/27/20 17:32 Temperature 36.4 C L Pulse Rate 60 78 84 Respiratory Rate 14 17 17 Blood Pressure 132/65 117/72 Pulse Oximetry 96 96 95 06/27/20 18:02 06/27/20 18:15 06/27/20 18:16 Temperature Pulse Rate 88 77 83 Respiratory Rate 11 L 13 18 Blood Pressure 150/70 H Pulse Oximetry 97 92 96 06/27/20 18:17 06/27/20 19:59 06/27/20 20:00 Temperature Pulse Rate 84 85 79 Respiratory Rate 16 26 H 20 Blood Pressure Pulse Oximetry 92 97 96 06/27/20 20:02 06/27/20 20:03 06/27/20 20:27 Temperature Pulse Rate 78 77 84 Respiratory Rate 18 19 20 Blood Pressure 126/69 Pulse Oximetry 93 96 95 06/27/20 20:37 06/27/20 20:48 06/27/20 21:00 Temperature Pulse Rate 81 90 80 Respiratory Rate 10 L 14 22 H Blood Pressure Pulse Oximetry 97 97 06/27/20 21:02 06/27/20 21:23 06/27/20 21:31 Temperature Pulse Rate 75 82 80 Respiratory Rate 14 18 12 Blood Pressure 139/64 145/74 H Pulse Oximetry 98 96 97 06/27/20 21:32 06/27/20 22:00 06/27/20 22:23 Temperature 36.6 C Pulse Rate 79 73 73 Respiratory Rate 13 18 Blood Pressure 122/94 H Pulse Oximetry 94 92 06/27/20 22:24 06/27/20 23:06 06/28/20 00:00 Temperature Pulse Rate 73 108 H 85 Respiratory Rate 18 18 18 Blood Pressure Pulse Oximetry 92 93 06/28/20 02:00 06/28/20 04:00 06/28/20 05:53 Temperature 35.9 C L Pulse Rate 86 87 76 Respiratory Rate 18 Blood Pressure 120/64 Pulse Oximetry 98 06/28/20 08:00 06/28/20 12:00 Temperature 36.2 C L 36.3 C L Pulse Rate 79 70 Respiratory Rate 14 16 Blood Pressure 119/47 L 129/88 Pulse Oximetry 98 98 Intake/Output Intake/Output: Intake & Output 06/25/20 06/26/20 06/27/20 06/28/20 23:59 23:59 23:59 23:59 Output Total 400 Balance -400 Meds/Results Medications: Active Medications Generic Name Dose Route Start Last Admin Trade Name Freq PRN Reason Stop Dose Admin Hydrocodone
--- NOTE | 2020-06-28 16:42 | ECG_ITS ---
Measurements Intervals [place] Rate: 125 P: ND: 0 QRS: 46 QRSD: 94 T: 231 QT: 300 QTc: 434 Interpretive Statements ATRIAL FIBRILLATION WITH RAPID VENTRICULAR RESPONSE ST-T WAVE ABNORMALITY IN INF/LAT LEADS- CONSIDER ISCHEMIA BASELINE ARTIFACT- II, III, AVF ABNORMAL ECG Electronically Signed On 06-29-2020 6:48:02 [employer] by Ajit Champagne D.O.
[2020-06-28] MEDS: POTASSIUM CHLORIDE 20 MEQ TABLET 40 MEQ PO (17:27)
[2020-06-28] MEDS: dilTIAZem HCL 30 MG TABLET PO (17:28)
[2020-06-28] MEDS: MONTELUKAST SODIUM 10 MG TABLET PO (17:30)
[2020-06-28] MEDS: ALPRAZolam (*CRX) 0.5 MG TABLET PO (17:35)
--- NOTE | 2020-06-28 18:29 | PM.DS ---
DS: Admitting Diagnosis Admitting Diagnosis Admitting Diagnosis: DISCHARGE DATE IS 06/29/2020 Chest pain. DS: Discharge Diagnosis Discharge Diagnosis (1) Chest pain: Code(s): R07.9 - Chest pain, unspecified Status: Acute Assessment and Plan: Seen by cardiology, pt can lexiscan yesterday which was negative. While awaiting discharge from the hospitalist went into atrial fibrillation with rapid ventricular response. Pt was monitored overnite on telemetry and started on cardizem 30 mg every 6 hours. Potassium was low in hospital, so pt was started on potassium at 40 meq po qdaily. (2) Elevated troponin: Code(s): R77.8 - Other specified abnormalities of plasma proteins Status: Acute Assessment and Plan: trop 0.1, 0.09,pt seen by cardiology, Lexiscan ordered which was negative. (3) Microvascular angina: Code(s): I20.8 - Other forms of angina pectoris Status: Acute Assessment and Plan: known history (4) Hypertension: Code(s): I10 - Essential (primary) hypertension Status: Chronic Assessment and Plan: Bp is 115/57, was stable in the hospital. (5) Electrolyte abnormality: Code(s): E87.8 - Other disorders of electrolyte and fluid balance, not elsewhere classified Status: Acute Assessment and Plan: potassium is 3.3, sodium is 137 DS: Summary Time Spent with Patient Time attestation: Total time spent providing and/or coordinating discharge services:40 minutes on day of dischrage Exam Const: General: cooperative and healthy appearing; No in distress Nutritional Appearance: overweight Orientation/consciousness: oriented to person HENMT: Head: normal to inspection Resp: Effort & Inspection: no respiratory distress Auscultation: no rhonchi and no wheezes Cardio: Rate: regular rate Rhythm: regular rhythm GI: Inspection: normal to inspection Auscultation: normal bowel sounds Neuro: General: oriented to person DS: Data Data Completed and Pending Labs on day of discharge: Labs from last 24 hours 06/28/20 06/28/20 06/27/20 04:24 04:24 22:20 WBC 7.4 RBC 4.87 Hgb 14.3 Hct 40.3 MCV 82.8 MCH 29.4 MCHC 35.5 RDW 12.6 Plt Count 347 MPV 9.6 Immature Gran % (Auto) 0.5 Neut % (Auto) 43.5 L Lymph % (Auto) 43.2 [place] % (Auto) 8.8 H Eos % (Auto) 3.5 Baso % (Auto) 0.5 Lymph # (Auto) 3.19 [place] # (Auto) 0.7 H Eos # (Auto) 0.3 Baso # (Auto) 0.0 Abs Immat Gran (auto) 0.04 H Absolute Neuts (auto) 3.2 Absolute Nucleated RBC 0.0 Nucleated RBC % 0.0 Sodium 136 L Potassium 3.0 L Chloride 98 Carbon Dioxide 33 H Anion Gap 5 L BUN 21 H Creatinine 0.70 Estim Creat Clear Calc 61 Estimated GFR > 60 Glucose 96 Calcium 8.6 Troponin I 0.091 H* 06/27/20 19:09 WBC RBC Hgb Hct MCV MCH MCHC RDW Plt Count MPV Immature Gran % (Auto) Neut % (Auto) Lymph % (Auto) [place] % (Auto) Eos % (Auto) Baso % (Auto) Lymph # (Auto) [place] # (Auto) Eos # (Auto) Baso # (Auto) Abs Immat Gran (auto) Absolute Neuts (auto) Absolute Nucleated RBC Nucleated RBC % Sodium Potassium Chloride Carbon Dioxide Anion Gap BUN Creatinine Estim Creat Clear Calc Estimated GFR Glucose Calcium Troponin I 0.107 H* Discharge Plan Discharge Attending physician on discharge: Deepti Weathers Consulting providers: Frankie Hawthorne Discharging Clinician: Deepti Weathers Anticipated Discharge Date/Time: 06/29/20 12:13 Patient Disposition: Home, Self-Care Activity: as tolerated Diet: heart healthy Discharge Instructions: CARDIOLOGY DISCHARGE INSTRUCTIONS: ACTIVITY: Activity as tolerated with precautions to avoid falls. Rise slowly from a seated or lying position. Monitor your heart rate and blood pressure. Take your readings to your follow-up appoint with Dr Gonsalez
--- NOTE | 2020-06-28 20:07 | PC.NURSE ---
RN contacted Dr. Weathers at [phone] and [phone] to tell her never mind for the discharge order because the patient went into A-fib with RVR and has to stay per cardiology now. Dr. Weathers didn't answer so RN had to leave a message x2. Dr. Weathers still put in the discharge order so RN called Amy Ham instead to cancel the order.
[2020-06-28] MEDS: MAGNESIUM OXIDE 200 MG TABLET PO (21:11)
[2020-06-29] VITALS (10 sets, daily range): BP systolic 108–127; BP diastolic 51–65; PULSE 62–79; RESP 16–18; TEMP 35.7–36.1; O2SAT 97–100
[2020-06-29] MEDS: dilTIAZem HCL 30 MG TABLET PO ×2 (00:01→05:24)
[2020-06-29 05:10] LABS: Anion Gap 3 mmol/L (8-16); Blood Urea Nitrogen 17 mg/dL (7-17); Calcium 8.3 mg/dL (8.4-10.2); Carbon Dioxide 33 mmol/L (22-30); Chloride 101 mmol/L (98-107); Estimated CRCL calculation 70 ml/min; Estimated Glomerular Filt Rate > 60; Glucose 93 mg/dL (65-105); Magnesium 1.9 mg/dL (1.6-2.3); Potassium 3.3 mmol/L (3.4-5.0); Sodium 137 mmol/L (137-145)
[2020-06-29] MEDS: POTASSIUM CHLORIDE 20 MEQ PACKET (FOR LIQUID) PO (08:13)
[2020-06-29] MEDS: TRIAMTERENE 37.5 MG/HCTZ 25 MG (MAXZIDE) TABLET 1 TAB PO (08:14)
[2020-06-29] MEDS: MAGNESIUM OXIDE 200 MG TABLET PO (08:14)
[2020-06-29] MEDS: ALPRAZolam (*CRX) 0.5 MG TABLET PO ×2 (08:14→15:04)
[2020-06-29] MEDS: ASPIRIN 325 MG TABLET PO (08:14)
[2020-06-29] MEDS: DULoxetine HCL 60 MG CAPSULE.DR PO (08:14)
[2020-06-29] MEDS: calcium polycarbophiL 625 MG TABLET 1250 MG PO (08:14)
[2020-06-29] MEDS: CHOLECALCIFEROL 1,000 UNITS TABLET 5000 UNITS PO (08:14)
[2020-06-29] MEDS: SUCRALFATE 1 GM TABLET 2 GM PO (08:14)
[2020-06-29] MEDS: ATORVASTATIN 20 MG TABLET PO (08:14)
[2020-06-29] MEDS: VITAMIN B COMPLEX CAPSULE 1 CAP PO (08:16)
[2020-06-29] MEDS: FLUTICASONE PROPIONATE 0.05% NA SPR 16 GM BTL (*BKC) 2 SPRAY NASAL (08:23)
--- NOTE | 2020-06-29 09:46 | PM.IMPN ---
Progress Note: A&P Assessment and Plan (1) Chest pain: Code(s): R07.9 - Chest pain, unspecified Status: Acute Assessment and Plan: Seen by cardiology, pt can lexiscan yesterday which was negative. While awaiting discharge from the hospitalist went into atrial fibrillation with rapid ventricular response. Pt was monitored overnite on telemetry and started on cardizem 30 mg every 6 hours. Potassium was low in hospital, so pt was started on potassium at 40 meq po qdaily. Hopeful discharge tomorrow. (2) Elevated troponin: Code(s): R77.8 - Other specified abnormalities of plasma proteins Status: Acute Assessment and Plan: trop 0.1, 0.09,pt seen by cardiology, Lexiscan ordered which was negative. (3) Microvascular angina: Code(s): I20.8 - Other forms of angina pectoris Status: Acute Assessment and Plan: known history (4) Hypertension: Code(s): I10 - Essential (primary) hypertension Status: Chronic Assessment and Plan: Bp is 115/57, was stable in the hospital. (5) Electrolyte abnormality: Code(s): E87.8 - Other disorders of electrolyte and fluid balance, not elsewhere classified Status: Acute Assessment and Plan: potassium is 3.3, sodium is 137 Subjective Date/time seen: 06/28/20 09:46 Interval history: Finn is a very pleasant 74-year-old female with history of microvascular angina who presented to the emergency department earlier today for further evaluation of chest pain. Review of Systems Review of Systems: All systems reviewed & are unremarkable except as noted in HPI and below Exam Const: General: cooperative and healthy appearing; No in distress Nutritional Appearance: overweight Orientation/consciousness: oriented to person HENMT: Head: normal to inspection Resp: Effort & Inspection: no respiratory distress Auscultation: no rhonchi and no wheezes Cardio: Rate: regular rate Rhythm: regular rhythm GI: Inspection: normal to inspection Auscultation: normal bowel sounds Neuro: General: oriented to person Objective Data Vital Signs Vital Signs: Vital Signs - 24 hr 06/28/20 10:00 06/28/20 12:00 06/28/20 14:00 Temperature 36.3 C L Pulse Rate 80 95 88 Respiratory Rate 16 Blood Pressure 129/88 Pulse Oximetry 98 06/28/20 16:00 06/28/20 16:54 06/28/20 18:00 Temperature 36.3 C L Pulse Rate 93 111 H 93 Respiratory Rate 18 Blood Pressure 130/69 120/69 Pulse Oximetry 99 97 06/28/20 19:57 06/28/20 20:00 06/28/20 22:00 Temperature 36.2 C L Pulse Rate 81 78 75 Respiratory Rate 16 18 Blood Pressure 105/52 L Pulse Oximetry 97 98 06/28/20 23:49 06/29/20 00:00 06/29/20 02:00 Temperature 36.1 C L Pulse Rate 72 70 72 Respiratory Rate 16 18 Blood Pressure 107/49 L Pulse Oximetry 100 97 06/29/20 03:52 06/29/20 04:00 06/29/20 06:00 Temperature 36.1 C L Pulse Rate 70 65 62 Respiratory Rate 16 18 Blood Pressure 108/51 L Pulse Oximetry 99 98 06/29/20 08:00 Temperature 35.7 C L Pulse Rate 62 Respiratory Rate 16 Blood Pressure 127/65 Pulse Oximetry 100 Intake/Output Intake/Output: Intake & Output 06/26/20 06/27/20 06/28/20 06/29/20 23:59 23:59 23:59 23:59 Intake Total 530 600 Output Total 1250 900 Balance -720 -300 Meds/Results Medications: Active Medications Generic Name Dose Route Start Last Admin Trade Name Freq PRN Reason Stop Dose Admin Hydrocodone Bitart/Acetaminophen 1 tab 06/28/20 00:48 Hydrocodone/Acetaminophen (*Crx) 5-325 Mg Tablet PO Q8H PRN pain Alprazolam 0.5 mg 06/28/20 09:00 06/29/20 08:14 Alprazolam (*Crx) 0.5 Mg Tablet PO 0.5 mg TID ELAINA Administration Aspirin 325 mg 06/28/20 08:00 06/29/20 08:14 Aspirin 325 Mg Tablet PO 325 mg DAILY@0800 [facility] Administration Atorvastatin Calcium 20 mg 06/28/20 09:00 06/29/20 08:14 Atorvastatin 20 Mg Tablet PO 20 mg DAILY [facility]
--- NOTE | 2020-06-29 10:14 | PM.PNCARD ---
Progress Note: A&P Assessment and Plan (1) Atrial fibrillation: Code(s): I48.91 - Unspecified atrial fibrillation Status: Acute Assessment and Plan: Incidentally, recurrence of her described chest discomfort as burning directly associated with new diagnosis atrial fibrillation with rapid ventricular response up to the 170s. Episode self-terminated along with resolution of her symptoms. As such, it appears this symptom complex has been related to intermittent atrial fibrillation for quite some time. Hypokalemic this hospitalization and this morning repleted with 20 mEq an additional 40 mEq ordered. Will change outpatient potassium chloride to 40 mEq daily. Hypokalemia likely secondary to hydrochlorothiazide despite triamterene. CHADS2 Vasc score 3, systemic anticoagulation advised. Reviewed pathophysiology of atrial fibrillation, relative bleeding versus CVA risk and recommendations for anticoagulation. Patient verbalized understanding and agreed with plan of care. -Discontinue Aspirin. Initiate Eliquis 5mg BID (given Xarelto/Dilt interaction). Care coordination to pate out for patient prior to discharge. -Continue Diltiazem 180 mg daily and and anti arrhythmic therapy with Flecainide 100 mg twice daily. Counseled on risk with bradycardia, monitor side effects as counseled. -Outpatient BMP in one week. -Follow up with Dr. Houston in 2-4 weeks with follow up EKG. -Ok for discharge today if maintaining SR. Discussed with Dr. Houston who has been updated and is in agreement with plan of care. (2) Chest pain: Code(s): R07.9 - Chest pain, unspecified Status: Acute Assessment and Plan: Lexiscan negative, echocardiogram with preserved EF without wall motion abnormalities. (3) Elevated troponin: Code(s): R77.8 - Other specified abnormalities of plasma proteins Status: Acute Assessment and Plan: As it turns out, likely related to A.Fib with RVR given new diagnosis, yet alternative explanation still possible in absence of ischemia or known heart disease. (4) Hypertension: Code(s): I10 - Essential (primary) hypertension Status: Chronic Assessment and Plan: Well controlled. Continue current medical therapy. (5) Hyperlipidemia: Qualifiers: Hyperlipidemia type: mixed hyperlipidemia Qualified Code(s): E78.2 - Mixed hyperlipidemia Code(s): E78.5 - Hyperlipidemia, unspecified Status: Acute Assessment and Plan: Continue atorvastatin. Check fasting lipid profile. Subjective Date/time seen: Date of service: 06/29/20 10:14 Follow-up for chest pain, elevated troponin. Stress test performed yesterday were negative for ischemia. Echo performed normal wall motion and LV systolic function. Prior to discharge approximately 4:30 p.m. patient developed recurrent burning sensation in her chest which was associated with atrial fibrillation with rapid ventricular response which is a new diagnosis. Episode resolved within 1 hour along with her symptoms. No recurrence overnight and she feels very well without complaints. Review of Systems Review of Systems: All systems reviewed & are unremarkable except as noted in HPI and below Constitutional: Constitutional: Reports as per HPI, Reports no additional constitutional complaints and Denies fatigue Eyes: Eyes: Reports as per HPI and Reports no additional eye complaints ENT: Reports system reviewed and no additional complaints, except as documented and Reports as per HPI Cardiovascular: Cardiovascular: Reports as per HPI, Reports no additional cardiovascular complaints, Reports chest pain (described as substernal burning without radiation) and Reports dyspnea on exertion (quite mild) Respiratory: Respiratory: Reports as per HPI, Reports no additional respiratory complaints, Denies cough, Denies hemoptysis and Denies dyspnea on exertion (quite mild) Gastrointestinal: Gastrointestinal: Reports a
--- NOTE | 2020-06-29 10:29 | ECG_ITS ---
Measurements Intervals [place] Rate: 67 P: -6 VT: 157 QRS: 30 QRSD: 93 T: 155 QT: 429 QTc: 456 Interpretive Statements SINUS RHYTHM LEFT VENTRICULAR HYPERTROPHY WITH ST-T CHANGE ST-T WAVE ABNORMALITY IN ANTEROLAT/HIGH LAT LEADS- CONSIDER ISCHEMIA ABNORMAL ECG Electronically Signed On 06-29-2020 11:35:00 ANTHROPOLOGIST PHYSICAL by Ajit Champagne D.O.
[2020-06-29] MEDS: dilTIAZem HCL CD 180 MG CAP.ER.24H PO (11:04)
== END 2020-06-29 15:25 | disposition home or self-care (01) ==
LOC: ANHED 18:17 → ANHIMU 20:12
PROVIDERS: Nurse Practitioner Adult Health; Admitting Provider Family Medicine; Emergency Provider Emergency Medicine; PCP Internal Medicine; Visit Provider Family Medicine
DX: R07.9 Chest pain, unspecified (principal); R77.8 Other specified abnormalities of plasma proteins; I20.8 Other forms of angina pectoris; I10 Essential (primary) hypertension; E87.8 Other disorders of electrolyte and fluid balance, not elsewhere classified; I48.91 Unspecified atrial fibrillation; F32.9 Major depressive disorder, single episode, unspecified; M19.90 Unspecified osteoarthritis, unspecified site; E78.5 Hyperlipidemia, unspecified; H81.09 Meniere's disease, unspecified ear; I95.1 Orthostatic hypotension; G62.9 Polyneuropathy, unspecified; R73.03 Prediabetes; E55.9 Vitamin D deficiency, unspecified; I31.3 Pericardial effusion (noninflammatory); J98.11 Atelectasis; R94.31 Abnormal electrocardiogram [ECG] [EKG]; Z79.899 Other long term (current) drug therapy; Z79.84 Long term (current) use of oral hypoglycemic drugs
CPT/HCPCS: 36415; 71045; 78452; 80048; 83735; 84484; 85025; 85610; 85730; 93005; 93017; 96374; 99285; A9270; A9502; C8929; G0378; J0280; J2785; J7030; Q9957

== ENCOUNTER 2020-07-04 14:55 | Outpatient (CLI) | payer MEDICARE, SELFPAY ==
[2020-07-04 15:35] LABS: Anion Gap 7 mmol/L (8-16); Blood Urea Nitrogen 14 mg/dL (7-17); Calcium 8.9 mg/dL (8.4-10.2); Carbon Dioxide 31 mmol/L (22-30); Chloride 102 mmol/L (98-107); Estimated Glomerular Filt Rate > 60; Glucose 99 mg/dL (65-105); Potassium 3.9 mmol/L (3.4-5.0); Sodium 140 mmol/L (137-145)
== END 2020-07-04 14:56 | disposition home or self-care (01) ==
LOC: ANHLAB 14:56
PROVIDERS: PCP Internal Medicine; Visit Provider Nurse Practitioner Adult Health
DX: E87.6 Hypokalemia (principal); I48.91 Unspecified atrial fibrillation
CPT/HCPCS: 36415; 80048

== ENCOUNTER → 2020-10-22 08:58 | Outpatient (CLI) | payer MEDICARE, SELFPAY ==
--- NOTE | ~2020-10-22 | MM_ITS ---
EXAMINATION: MM diagnostic silvia BI w dari HISTORY: Six-month follow-up for probably benign right breast asymmetries and left breast calcificati ons TECHNIQUE: Craniocaudal, mediolateral, and mediolateral oblique 3-D tomosynthesis images of the breas ts were performed and synthetic 2-D images were generated. CAD analysis was submitted and interpreted . COMPARISON: 03/07/2020, 02/14/2020, 08/20/2015 BREAST PARENCHYMAL COMPOSITION: The breasts are heterogeneously dense, which may obscure small masses . FINDINGS: Right breast: There is a return to baseline fibroglandular appearance with spot compression of the ri ght breast. No suspicious mass, calcification, or architectural distortion are identified. Left breast: There are stable grouped coarse heterogeneous calcifications in the anterior third of th e upper outer quadrant breast at the 2:00 location 7 cm from the nipple. No associated mass or dara ectural distortion are identified. IMPRESSION: 1. No persistent asymmetry of the right breast and probably benign left breast calcifications. 2. Recommend 6 month follow-up left diagnostic mammogram. BI-RADS category 3, probably benign findings. Reviewed, dictated and finalized at location A.
== END ==
PROVIDERS: PCP Internal Medicine; Visit Provider Internal Medicine
DX: R92.8 Other abnormal and inconclusive findings on diagnostic imaging of breast (principal)
CPT/HCPCS: 77062; 77066; G0279

== ENCOUNTER → 2021-03-12 10:47 | Outpatient (CLI) | payer MEDICARE, SELFPAY ==
--- NOTE | ~2021-03-12 | US_ITS ---
EXAMINATION: US thyroid DATE: 03/12/2021 11:12 INDICATION: Nontoxic single thyroid nodule. TECHNIQUE: Multiple ultrasound images of the thyroid were obtained. COMPARISON: Thyroid ultrasound 03/07/2020 FINDINGS: The right thyroid lobe measures 4.1 x 1.2 x 1.2 cm. The left thyroid lobe measures 4.0 x 1.4 x 1.3 c m. The thyroid demonstrates heterogeneous echogenicity and increased vascularity. In the right thyro id lobe, there is a 9 mm mixed cystic and solid, very hypoechoic, usrxt-wkng-dlpw nodule with ill-def ined margin without echogenic foci (TI-RADS TR4). In the right thyroid lobe, there is a 5 mm solid, h ypoechoic, kmphx-hosa-hcti nodule with smooth margin without echogenic foci (TR4). In the left thyroi d lobe, there is a 6 mm solid, hypoechoic, mizqi-yvya-muta nodule with ill-defined margin without ech ogenic foci (TR4). IMPRESSION: 1. Small thyroid nodules, likely not clinically significant. No follow-up is needed. 2. Heterogeneous, hypervascular thyroid, likely chronic lymphocytic (Deena) thyroiditis. Reviewed, dictated and finalized at location B. IMPRESSION: 1. Small thyroid nodules, likely not clinically significant. No follow-up is ne eded. 2. Heterogeneous, hypervascular thyroid, likely chronic lymphocytic (Deena) thyroiditis.
== END ==
PROVIDERS: PCP Internal Medicine; Visit Provider Internal Medicine
DX: E04.2 Nontoxic multinodular goiter (principal)
CPT/HCPCS: 76536

== ENCOUNTER 2021-03-25 14:31 | Observation (INO) | payer MEDICARE, SELFPAY ==
[2021-03-25] VITALS (8 sets, daily range): BP systolic 115–129; BP diastolic 54–66; PULSE 66–74; RESP 14–20; TEMP 36.6–36.9; O2SAT 95–99
--- NOTE | ~2021-03-25 | XR_ITS ---
EXAMINATION: XR chest 2V DATE: 03/25/2021 14:47 INDICATION: Shortness of breath and chest tightness TECHNIQUE: PA and lateral views of the chest are obtained. COMPARISON: 06/27/2020 FINDINGS: The lungs are free of acute opacities. There is no pleural effusion or pneumothorax. The ca rdiomediastinal silhouette is normal. There is moderate thoracic spondylosis. There are changes of an terior and posterior fusion in the lumbar spine. Surgical clips in the right upper quadrant are likel y from prior cholecystectomy. IMPRESSION: 1. No acute cardiopulmonary abnormality. Reviewed, dictated and finalized at location A.
--- NOTE | ~2021-03-25 | NM_ITS ---
EXAMINATION: NM christi stress w perfusion DATE: 03/26/2021 15:52 INDICATION: Chest pain TECHNIQUE: Rest images were obtained following intravenous administration of 9.8 mCi Tc99m tetrofosmi n (Myoview). The patient was infused intravenously with Lexiscan (Regadenoson). Then, 31.21 mCi Tc99m tetrofosmin (Myoview) was administered intravenously, and stress images were obtained. Data was elijah nstructed into short axis and horizontal and vertical long axis SPECT images. Gated SPECT images were also obtained. COMPARISON: 06/28/2020 FINDINGS: There is no definite reversible or fixed perfusion abnormality to suggest ischemia or infar ction. There is normal left ventricular chamber size, wall motion and ejection fraction. Left ventr icular ejection fraction measures >70%. IMPRESSION: 1. Normal myocardial perfusion at rest and during stress. 2. Left ventricular ejection fraction measuring >70%. Reviewed, dictated and finalized at location A.
--- NOTE | 2021-03-25 14:34 | ECG_ITS ---
Measurements Intervals [place] Rate: 66 P: AL: 0 QRS: 80 QRSD: 157 T: 22 QT: 464 QTc: 487 Interpretive Statements SINUS RHYTHM WITH 2ND DEGREE AV BLOCK, MOBITZ TYPE II RIGHT BUNDLE BRANCH BLOCK BASELINE ARTIFACT- I, III, AVR, AVL, V5-V6 ABNORMAL ECG Electronically Signed On 03-25-2021 15:01:33 CDT by Ajit Champagne D.O.
[2021-03-25 17:08] LABS: Basophils Percent Auto 0.4 % (0.2-1.2); Eosinophils Absolute Auto 0.1 K/mm3 (0-0.3); Eosinophils Percent Auto 0.9 % (0-4.4); Hematocrit 44.2 % (37.0-47.0); Immature Granulocyte Absolute 0.03 K/mm3 (0.00-0.031); Immature Granulocyte Percent A 0.4 % (0-0.5); Lymphocytes Absolute Auto 1.74 K/mm3 (0.9-3.2); Lymphocytes Percent Auto 25.2 % (18.3-44.2); Mean Corpuscular HGB Conc 33.9 g/dl (32-36); Mean Corpuscular Hemoglobin 30.2 pg (26-34); Mean Corpuscular Volume 88.9 fl (80-100); Mean Platelet Volume 9.7 fl (7.4-10.4); Monocytes Absolute Auto 0.4 K/mm3 (0.1-0.6); Monocytes Percent Auto 5.5 % (2.6-8.5); Neutrophils Absolute Auto 4.7 K/mm3 (1.3-6.7); Neutrophils Percent Auto 67.6 % (45.5-73.1); Platelet Count Result 328 k/mm3 (150-375); Red Blood Count 4.97 M/mm3 (4.2-5.4); Red Cell Distribution Width 14.3 % (11.5-14.5); White Blood Count 6.9 K/mm3 (4.5-10.0)
[2021-03-25 17:17] LABS: Anion Gap 9 mmol/L (8-16); Blood Urea Nitrogen 20 mg/dL (7-17); Calcium 9.2 mg/dL (8.4-10.2); Carbon Dioxide 27 mmol/L (22-30); Chloride 102 mmol/L (98-107); Estimated CRCL calculation 48 ml/min; Estimated Glomerular Filt Rate > 60; Glucose 120 mg/dL (65-110); Potassium 3.4 mmol/L (3.4-5.0); Sodium 138 mmol/L (137-145)
[2021-03-25 17:18] LABS: INR 1.1; Prothrombin Time 13.7 Seconds (11.1-14.7)
[2021-03-25 17:19] LABS: Partial Thromboplastin Time 29.7 SECONDS (22.3-36.8)
[2021-03-25 17:29] LABS: NT Pro B Type Natriuretic Pept 314 pg/mL (5-100); Troponin I < 0.012 ng/mL (0.000-0.034)
--- NOTE | 2021-03-25 17:38 | ED.CHESTPAIN ---
HPI - Chest Pain General Chief Complaint: Chest Pain Stated Complaint: sob, dizzy Time Seen by Provider: 03/25/21 17:13 Source: patient Mode of arrival: ambulatory Limitations: no limitations History of Present Illness HPI narrative: Patient is a 75-year-old female complaining of chest pain, described as tightness, was 7 out of 10 earlier, currently 1 out of 10, worse with exertion, accompanied by shortness of breath started yesterday. Patient denies any abdominal pain, nausea, vomiting, diaphoresis, fever or chills. Related Data Home Medications Medication Instructions Recorded Confirmed alprazolam 0.5 mg tablet 0.5 mg PO TID 10/03/19 03/20/21 cetirizine 10 mg tablet 5 mg PO DAILY PRN 10/03/19 03/20/21 fluticasone propionate 50 2 spray NASAL DAILY PRN 10/29/20 03/20/21 mcg/actuation nasal spray,suspension baclofen 10 mg tablet 10 mg PO QHS 03/19/21 03/20/21 inulin 2 gram chewable tablet 2 g PO DAILY 03/19/21 03/20/21 potassium chloride meq PO 03/25/21 Allergies Allergy/AdvReac Type Severity Reaction Status Date / Time adhesive tape Allergy Unknown RASH Verified 03/25/21 17:14 Sulfa (Sulfonamide Allergy Unknown Rash Verified 03/25/21 17:14 Antibiotics) gabapentin AdvReac Mild Swelling Verified 03/25/21 17:14 Review of Systems Review of Systems: All systems reviewed & are unremarkable except as noted in HPI and below Constitutional: Constitutional: Denies body ache(s), Denies chills, Denies excessive sweating, Denies fatigue, Denies fever(s), Denies headache(s), Denies lethargy, Denies malaise, Denies weakness and Denies weight loss Eyes: Eyes: Denies blurry vision, Denies change in vision and Denies loss of vision ENT: Denies dizziness, Denies ear discharge, Denies headache(s), Denies lip swelling, Denies epistaxis, Denies nasal congestion, Denies neck pain, Denies throat swelling and Denies tongue swelling Cardiovascular: Cardiovascular: Denies diaphoresis, Denies rapid heart rate, Denies edema, Denies irregular heart rhythm, Denies lightheadedness and Denies palpitations Respiratory: Respiratory: Denies chest congestion, Denies cough and Denies hemoptysis Gastrointestinal: Gastrointestinal: Denies abdominal pain, Denies melena, Denies hematochezia, Denies diarrhea, Denies nausea, Denies vomiting and Denies hematemesis Musculoskeletal: Musculoskeletal: Denies abnormal gait, Denies deformity, Denies joint swelling, Denies limited range of motion, Denies neck pain and Denies numbness Neurologic: Denies Abnormal speech present, Denies abnormal gait, Denies confusion, Denies dizziness, Denies headache(s), Denies focal weakness, Denies loss of vision, Denies numbness, Denies Other visual disturbances, Denies Sensory deficit (Neuro) and Denies weakness Psychiatric: Psychiatric: Denies confusion, Denies depression, Denies auditory hallucinations, Denies homicidal ideation and Denies suicidal ideation Endocrine: Endocrine: Denies cold intolerance, Denies excessive sweating, Denies fatigue, Denies heat intolerance and Denies palpitations Hematologic/Lymphatic: Hematologic/Lymphatic: Denies easy bleeding and Denies easy bruising Allergic/Immunologic: Allergic/Immunologic: Denies lip swelling, Denies throat swelling and Denies tongue swelling PMFSH Past Medical History Medical History Chronic right hip pain Degenerative joint disease Depression Encounter for Medicare annual wellness exam Encounter for routine adult health examination without abnormal findings Hyperlipidemia Hypertension Menieres disease Microvascular angina Peripheral neuropathy Post menopausal syndrome Pre-diabetes Sacroiliitis Vitamin D deficiency Surgical History Surgical History Cochlear implant in place (~05/2020) Left cochlear implant. History of back surgery Fused from L2-S1. History of cholecystectomy History of cochlear
[2021-03-25 21:13] LABS: Troponin I < 0.012 ng/mL (0.000-0.034)
[2021-03-26] VITALS (12 sets, daily range): BP systolic 124–149; BP diastolic 58–85; PULSE 63–86; RESP 14–19; TEMP 36.1–36.9; O2SAT 95–100; BMI 27.4
--- NOTE | 2021-03-26 | EST_ITS ---
Patient Info Name: Macie Briseno Age: 75 years : 1945 Gender: Female Ht: 64 in Wt: 162 lbs BSA: 1.84 m2 HR: 74 bpm BP: 149 / 82 mmHg Heart Rhythm: Sinus Rhythm Technical Quality: Good Exam Date: 03/26/2021 2:42 PM Exam Location: [facility] Stress Patient Status: Inpatient Admit Date: 03/25/2021 Staff Ordering Physician: Edgardo Ramos MD Attending Provider: Jayda Vinson MD Exercise Technologist: Umm Page CT Exercise Physician: Frankie Hawthorne MD Exam Type: CA stress christi w NM Study Info A regadenoson stress test was performed. Summary 1. No abnormal ST/T wave changes with Lexiscan compared to baseline. 2. Frequent nonconducted PACs at rest and during stress with Lexiscan. 3. Chest pain during Lexiscan resolved spontaneously. 4. Please correlate with nuclear medicine images, reported separately. Protocol: Lexiscan Stress ECG Details Stage: REST Duration (min): 0 min : 55 sec HR (bpm): 73 SBP (mmHg): 149 DBP (mmHg): 82 Stage: REST Duration (min): 6 min : 50 sec HR (bpm): 65 SBP (mmHg): 149 DBP (mmHg): 82 Stage: STAGE 1 Duration (min): 1 min : 0 sec HR (bpm): 75 SBP (mmHg): 136 DBP (mmHg): 86 Stage: RECOVERY Duration (min): 1 min : 0 sec HR (bpm): 74 SBP (mmHg): 136 DBP (mmHg): 86 Stage: RECOVERY Duration (min): 2 min : 0 sec HR (bpm): 77 SBP (mmHg): 136 DBP (mmHg): 86 Stage: RECOVERY Duration (min): 3 min : 0 sec HR (bpm): 79 SBP (mmHg): 105 DBP (mmHg): 74 Stage: RECOVERY Duration (min): 4 min : 0 sec HR (bpm): 90 SBP (mmHg): 105 DBP (mmHg): 74 Stage: RECOVERY Duration (min): 4 min : 47 sec HR (bpm): 91 SBP (mmHg): 135 DBP (mmHg): 57 Rest HR: 65 bpm Peak HR: 90 bpm Rest Sys BP: 149 mmHg Peak Sys BP: 136 mmHg Max Pred HR: 146 bpm % Max Pred HR: 62 % Target HR: 124 bpm Max RPP: 12,240 bpm*mmHg BP Response: Normal blood pressure response Termination Reason: Completed protocol Cardiac Symptoms: Chest discomfort Total Time: 1 min : 0 sec Rest Rosario BP: 82 mmHg Peak Rosario BP: 86 mmHg Total Dose: 0.4 mg Resting ECG Normal sinus rhythm, RBBB, nonspecific ST abnormalities. Stress ECG No abnormal ST/T wave changes with Lexiscan compared to baseline. Arrhythmias Frequent nonconducted PACs at rest and during stress with Lexiscan. Report Signatures
[2021-03-26 05:18] LABS: Troponin I < 0.012 ng/mL (0.000-0.034)
--- NOTE | 2021-03-26 07:50 | ADMGEN ---
This patient, Macie Briseno, was admitted to [facility]. Patient/family oriented to hospital policies and general routines including ID bracelet, bed and alarms, visiting hours, pain management, procedures, bathroom and other care routines, personal items, smoking policy, room service/diet, and visiting hours. DENIES CP OR SOB ON ARRIVAL. Information on how to activate the Rapid Response Team has been discussed. Patient/Family are encouraged to report perceived risks to care and to ask questions if they do not understand what they are told or what they should do.
--- NOTE | 2021-03-26 08:05 | PC.NURSE ---
DR. DAY HERE TO SEE PT AT BEDSIDE.
--- NOTE | 2021-03-26 11:39 | PM.IMHP ---
H&P: HPI History of Present Illness Date/Time: 03/26/21 11:39 Date of service: 03/26/2021 chief complaint: Chest pain HPI: 75-year-old female with hypertension, paroxysmal atrial fibrillation on anticoagulation with apixaban, Meniere's disease, anxiety. Patient presented to [facility] Emergency Room on 03/25/2021 with complaints of chest pain and shortness of breath that started about 3 days ago. She states that her symptoms are progressively worsening. She had intermittent episodes of chest pain, worse with exertion for last 3 days. She gives history of microvascular angina , and reports that she had coronary angiogram several years ago which according to patient did not show any obstructive disease. However, current symptoms are more severe, and worse with exertion. She follows up with for cardiovascular care. Patient is on chronic anticoagulation with apixaban, however, her last dose was on 03/25/2021 morning. She has not received apixaban since admission to the hospital. EKG on my personal evaluation showed sinus rhythm, second-degree AV block Mobitz type 2, right bundle-branch block. On telemetry, patient has been in sinus rhythm with bundle branch block and occasional second-degree type 2 AV block. Serial troponins are negative. Anti proBNP is mildly elevated at 314. Chest x-ray is unremarkable. Chief Complaint: Chest pain, shortness of breath x3 days Review of Systems Review of Systems: General: Negative for fever, chills, fatigue Psychological: Positive for anxiety Ophthalmic: negative for loss of vision ENT: Positive for decreased hearing Allergy and immunology: Negative for hives, nasal congestion Hematologic and lymphatic: Negative for overt bleeding problems Endocrine: Negative for hot flashes, palpitations Respiratory: Negative for cough, hemoptysis Cardiovascular: Positive for chest pain, shortness of breath; negative for palpitation, dizziness or syncope. Gastrointestinal: Negative for abdominal pain, nausea, vomiting, hematochezia Musculoskeletal: Negative for myalgia, joint pains Neurological: Negative for weakness Dermatological: Negative for rash, skin discoloration PMFSH Past Medical History Medical History Chronic right hip pain Degenerative joint disease Depression Encounter for Medicare annual wellness exam Encounter for routine adult health examination without abnormal findings Hyperlipidemia Hypertension Menieres disease Microvascular angina Peripheral neuropathy Post menopausal syndrome Pre-diabetes Sacroiliitis Vitamin D deficiency Surgical History Surgical History Cochlear implant in place (~05/2020) Left cochlear implant. History of back surgery Fused from L2-S1. History of cholecystectomy History of cochlear implant History of total replacement of both hip joints Family History Family History Mother , Lung cancer, smoker. Lung cancer Social History Social History Social History: Surrogate decision maker: Sunita Miranda, spouse. Code status: Full code. Smoking status: Never smoker Second hand tobacco smoke exposure: Yes Alcohol intake: current Drinks per week: 10 Alcohol use details: Drinks alcohol socially and in moderation. Substance use: never Substance use type: does not use Additional living arrangements comments: Resides in [place] with her , dog, and 2 cats. They have no children. 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 Gender identity (if verbalized by the patient): Female Sexual Orientation (if Verbalized by the Patient): Lesbian, Wheat, or Homosexual Spiritual care concerns: No Meds Home Medications and A
[2021-03-26] MEDS: ACETAMINOPHEN 325 MG TABLET 650 MG PO (11:49)
--- NOTE | 2021-03-26 11:50 | PC.NURSE ---
DR. CHILD HERE TO BEDSIDE TO SEE PT. PLAN LEXISCAN NUCLEAR STRESS TEST TODAY. ORDERS RECEIVED.
[2021-03-26] MEDS: ENOXAPARIN 80 MG/0.8 ML SYRINGE 75 MG SUB-Q (13:29)
--- NOTE | 2021-03-26 13:35 | PC.NURSE ---
1ST DOSE OF LOVENOX GIVEN SQ AT THIS TIME. DOWN VIA WC FOR LEXISCAN NUCLEAR STRESS TEST. DENIES CP OR SOB AT THIS TIME.
--- NOTE | 2021-03-26 15:30 | PC.NURSE ---
RETURNS TO BOAT LOADER HELPER 6 VIA WC FROM STRESS TEST. VOICES NO C/O.
--- NOTE | 2021-03-26 15:43 | PM.DS ---
DS: Admitting Diagnosis Admitting Diagnosis chest pain DS: Discharge Diagnosis Discharge Diagnosis (1) Chest pain: Code(s): R07.9 - Chest pain, unspecified Status: Acute Assessment and Plan: Presented with chest pain worse with exertion. A nuclear stress test was recommended. Underwent Lexiscan stress test today which showed: Normal myocardial perfusion at rest and during stress. Left ventricular ejection fraction measuring >70%. She is stable for discharge. She follows with a hvac service tech () at [facility] whom she should see in follow up within a few weeks. (2) PAF (paroxysmal atrial fibrillation): Code(s): I48.0 - Paroxysmal atrial fibrillation Status: Acute Assessment and Plan: Currently in sinus rhythm. Resume flecainide. Chronic anticoagulation will be with apixaban. (3) Second degree AV block: Code(s): I44.1 - Atrioventricular block, second degree Status: Acute Assessment and Plan: Patient's EKG, and telemetry shows intermittent second-degree type 2 av block, suggestive of significant conduction system abnormality. Further management for AV block to be performed by patient's hvac service tech at [facility]. DS: Summary Hospital Course Reason for hospitalization: Chest pain Hospital Course: Patient presented to [facility] Emergency Room on 03/25/2021 with complaints of chest pain and shortness of breath that started about 3 days ago. She states that her symptoms are progressively worsening. She had intermittent episodes of chest pain, worse with exertion for last 3 days. She gives history of microvascular angina , and reports that she had coronary angiogram several years ago which according to patient did not show any obstructive disease. However, current symptoms are more severe, and worse with exertion. She follows up with Dr. Houston for cardiovascular care. Underwent lexiscan stress test today that was negative for ischemia or infarct. Time Spent with Patient Time attestation: Total time spent providing and/or coordinating discharge services: 33 minutes Exam Narrative: PHYSICAL EXAMINATION: GENERAL: Alert, oriented, no acute distress MENTAL STATUS: Anxious EYES: Extraocular movements intact, no pallor EARS: Decreased hearing NOSE: Normal and patent, no discharge MOUTH: Mucous membranes moist, tongue normal NECK: Supple, no JVD CHEST: Good respiratory effort, clear to auscultation HEART: Normal rate, regular rhythm at present, normal S1 and S2 ABDOMEN: Soft, nontender NEUROLOGICAL: Alert, oriented, normal speech, no gross motor deficits MUSCULOSKELETAL: No major deformity, no amputation EXTREMITIES: No pedal edema, no clubbing, no cyanosis SKIN: no rash on the exposed area, no cyanosis PSYCHIATRIC: Anxious DS: Data Data Completed and Pending Labs on day of discharge: Labs from last 24 hours 03/26/21 03/25/21 03/25/21 04:09 20:44 14:51 WBC RBC Hgb Hct MCV MCH MCHC RDW Plt Count MPV Immature Gran % (Auto) Neut % (Auto) Lymph % (Auto) Kane % (Auto) Eos % (Auto) Baso % (Auto) Lymph # (Auto) Kane # (Auto) Eos # (Auto) Baso # (Auto) Abs Immat Gran (auto) Absolute Neuts (auto) Absolute Nucleated RBC Nucleated RBC % PT INR APTT Sodium 138 Potassium 3.4 Chloride 102 Carbon Dioxide 27 Anion Gap 9 BUN 20 H Creatinine 0.90 Estim Creat Clear Calc 48 Estimated GFR > 60 Glucose 120 H Calcium 9.2 Troponin I < 0.012 < 0.012 < 0.012 NT-Pro-B Natriuret Pep 314 H 03/25/21 03/25/21 14:51 14:51 WBC 6.9 RBC 4.97 Hgb 15.0 Hct 44.2 MCV 88.9 MCH 30.2 MCHC 33.9 RDW 14.3 Plt Count 328 MPV 9.7 Immature Gran % (Auto) 0.4 Neut % (Auto) 67.6 Lymph % (Auto) 25.2 Kane % (Auto) 5.5 Eos % (Auto) 0.9 Baso % (Auto) 0.4 Lymph # (Auto) 1.74
--- NOTE | 2021-03-26 16:05 | PC.NURSE ---
MESSAGE LEFT W/ HEMA ANTONY NP RE: MOBITZ II BEATS. PT. WITHOUT C/O. WILL CONTINUE TO MONITOR.
--- NOTE | 2021-03-26 16:50 | PC.NURSE ---
RETURN CALL FROM HEMA ANTONY NP. CONDITION UPDATE GIVEN. MADE AWARE OF INCREASED FREQUENCY OF MOBITZ II AROUND 1600. HR LOW IN 60'S AT THAT TIME. NO ORDERS RECEIVED.
--- NOTE | 2021-03-26 18:50 | PC.NURSE ---
DISCHARGE INSTRUCTIONS HAVE BEEN GIVEN AND REVIEWED W/ PT. QUESTIONS ANSWERED. VOICED UNDERSTANDING OF ALL. DENIES CP OR SOB. DISCHARGED HOME, OUT VIA WC TO 'S WAITING CAR WITH ALL PERSONAL BELONGINGS AND DISCHARGE PACKET. VOICES NO C/O, NO DISTRESS NOTED.
== END 2021-03-26 18:50 | disposition home or self-care (01) ==
LOC: ANHED 21:40 → ANHIMU 03-26 00:16 → ANHCPC 03-26 07:12
PROVIDERS: Emergency Medicine; Admitting Provider Internal Medicine Cardiovascular Disease; Emergency Provider Emergency Medicine; PCP Internal Medicine; Visit Provider Internal Medicine Cardiovascular Disease
DX: R07.9 Chest pain, unspecified (principal); I44.1 Atrioventricular block, second degree; I48.91 Unspecified atrial fibrillation; R06.02 Shortness of breath; I10 Essential (primary) hypertension; Z79.01 Long term (current) use of anticoagulants
CPT/HCPCS: 36415; 71046; 78452; 80048; 83880; 84484; 85025; 85610; 85730; 93005; 93017; 96372; 99285; A9270; A9502; G0378; J1650; J2785

== ENCOUNTER 2022-03-25 14:17 | Outpatient (CLI) | payer MEDICARE, SELFPAY ==
--- NOTE | ~2022-03-25 | XR_ITS ---
XR chest 2V DATE: 03/25/2022 14:49 INDICATION: Cough TECHNIQUE: 2 views COMPARISON: 03/25/2021 PA and lateral chest FINDINGS: Left-sided dual-lead pacemaker device, leads overlying right atrium and right ventricle, ne w since 03/25/2021. Normal heart size. Aortic arch calcification, mild aortic unfolding. No hilar or mediastinal enlargem ent. No pulmonary infiltrate or consolidation, pleural effusion or pulmonary vascular congestion or pneumo thorax. Pedicle screws and rods are noted in the lumbar spine. Status post cholecystectomy. Osteopenia. IMPRESSION: No active cardiopulmonary disease Interval left dual-lead pacemaker device placement since 03/25/2021 Reviewed, dictated and finalized at location B.
== END 2022-03-25 14:18 | disposition home or self-care (01) ==
PROVIDERS: PCP Internal Medicine; Visit Provider Internal Medicine
DX: R05.9 Cough, unspecified (principal); Z95.0 Presence of cardiac pacemaker
CPT/HCPCS: 71046

== ENCOUNTER 2022-04-03 10:30 | Emergency (ER) | payer MEDICARE, SELFPAY ==
[2022-04-03] VITALS (20 sets, daily range): BP systolic 107–136; BP diastolic 48–74; PULSE 61–73; RESP 13–24; TEMP 36.6–37.1; O2SAT 92–100
--- NOTE | ~2022-04-03 | XR_ITS ---
EXAMINATION: XR chest 1V DATE: 04/03/2022 11:21 INDICATION: Fall. TECHNIQUE: A single frontal view of the chest was obtained on 2 radiographs. COMPARISON: Chest 2 views 03/25/2022 FINDINGS: There is mild atelectasis in left lower lung zone. No pleural effusion or pneumothorax. The heart size is normal. There is a left chest wall pacer with leads in the right atrium and right vent ricle. Surgical clips in the right upper quadrant are likely from cholecystectomy. There are changes of posterior fusion procedure in lumbar spine. IMPRESSION: 1. Mild atelectasis in left lower lung zone. Reviewed, dictated and finalized at location A.
--- NOTE | ~2022-04-03 | XR_ITS ---
EXAMINATION: XR hip RT 2V w AP pelvis DATE: 04/03/2022 11:20 INDICATION: Right hip deformity. Fall. TECHNIQUE: An anteroposterior view of the pelvis and 2 views of right hip on 3 radiographs were obtai sae. COMPARISON: Pelvis and right hip radiograph 12/29/2019 FINDINGS: There is a total right hip arthroplasty with lateral and proximal dislocation of the femora l component with respect to the acetabular component. There is a total left hip arthroplasty in near- anatomic alignment. No fracture. There are anterior and posterior fusion procedures in lumbar spine. Osteitis pubis is noted. IMPRESSION: 1. Dislocated total right hip arthroplasty. 2. Total left hip arthroplasty in near-anatomic alignment. Reviewed, dictated and finalized at location A.
--- NOTE | ~2022-04-03 | XR_ITS ---
EXAMINATION: XR hip RT min 2V DATE: 04/03/2022 13:08 INDICATION: Right dislocation status post reduction. TECHNIQUE: 2 views of right hip were obtained. COMPARISON: Right hip radiographs at 11:11 AM FINDINGS: There is a total right hip arthroplasty in near-anatomic alignment. No fracture. No peripro sthetic lucency to suggest loosening or infection. There are changes of anterior and posterior fusion positions in lumbar spine. IMPRESSION: 1. Total right hip arthroplasty in near-anatomic alignment. Reviewed, dictated and finalized at location A.
--- NOTE | 2022-04-03 10:43 | ED.GENADULT ---
HPI - General Adult General Chief complaint: Extremity Injury, Lower Stated complaint: r hip - slipped in shower Time Seen by Provider: 04/03/22 10:32 History of Present Illness HPI narrative: 76-year-old female with a history of a right hip replacement in 2014 presenting to the emergency department for evaluation of increased right hip pain. Patient states she was standing with 1 leg on the toilet when she slipped causing the knee and as her hip was adducted. patient denies striking her head denies loss of consciousness. Related Data Home Medications Medication Instructions Recorded Confirmed fluticasone propionate 50 2 spray intranasal DAILY PRN 10/29/20 12/13/21 mcg/actuation nasal Allergy Symptoms spray,suspension inulin 2 gram chewable tablet 2 g PO DAILY 03/19/21 12/13/21 (Fiber Gummies) alprazolam 0.25 mg tablet 0.25 mg PO HS PRN Dizziness 03/26/21 12/13/21 calcium carbonate 500 mg calcium 500 mg PO BID 04/09/21 12/13/21 (1,250 mg) tablet (Calcium 500) alprazolam 0.25 mg tablet mg 04/03/22 04/03/22 apixaban 5 mg tablet (Eliquis) mg 04/03/22 atorvastatin 20 mg tablet mg 04/03/22 azelastine 137 mcg (0.1 %) nasal intranasal 04/03/22 spray aerosol duloxetine 30 mg capsule,delayed mg PO 04/03/22 release duloxetine 60 mg capsule,delayed mg PO 04/03/22 release montelukast 10 mg tablet mg 04/03/22 potassium chloride 20 mEq meq PO 04/03/22 tablet,extended release(part/cryst) trazodone 50 mg tablet mg 04/03/22 triamterene 37.5 cap 04/03/22 mg-hydrochlorothiazide 25 mg capsule Allergies Allergy/AdvReac Type Severity Reaction Status Date / Time adhesive tape Allergy Unknown RASH Verified 04/03/22 10:42 Sulfa (Sulfonamide Allergy Unknown Rash Verified 04/03/22 10:42 Antibiotics) chlorhexidine Allergy Rash Verified 04/03/22 10:42 gabapentin AdvReac Mild Swelling Verified 04/03/22 10:42 Review of Systems Review of Systems: CONSTITUTIONAL: Denies fever, chills, or sweats. EYES: Denies visual changes, redness, or discharge. ENT: Denies rhinorrhea, congestion, sore throat, or otalgia. CARDIOVASCULAR: Denies chest pain, palpitations, or edema. RESPIRATORY: Denies cough or dyspnea. GASTROINTESTINAL: Denies abdominal pain, nausea, vomiting, or diarrhea. GENITOURINARY: Denies dysuria or hematuria. SKIN: Denies rash or itching. MUSCULOSKELETAL: Right hip deformity NEUROLOGIC: Denies headache, numbness, or weakness. [facility] Past Medical History Medical History (Updated 04/03/22 @ 13:40 by Ki Hinton MD) Allergic rhinitis Chronic low back pain Chronic right hip pain Degenerative joint disease Depression Encounter for Medicare annual wellness exam Encounter for routine adult health examination without abnormal findings Fatigue Hyperlipidemia Hypertension Insomnia Menieres disease Microvascular angina Peripheral neuropathy Post menopausal syndrome Pre-diabetes Sacroiliitis Vitamin D deficiency Surgical History Surgical History Cochlear implant in place (~05/2020) Left cochlear implant. History of back surgery Fused from L2-S1. History of cholecystectomy History of cochlear implant History of total replacement of both hip joints Family History Family History Mother , Lung cancer, smoker. Lung cancer Social History Social History Social History: Surrogate decision maker: Sunita Miranda, spouse. Code status: Full code. Smoking status: Never smoker Second hand tobacco smoke exposure: Yes Alcohol intake: current Drinks per week: 10 Alcohol use details: Drinks alcohol socially and in moderation. Substance use: never Substance use type: does not use Additional living arrangements comments: Resides in [place] with her , dog, and 2 cats. They have no children. Ad
--- NOTE | 2022-04-03 10:52 | ECG_ITS ---
Measurements Intervals [place] Rate: 67 P: 87 [place]: 165 QRS: 31 QRSD: 97 T: 175 QT: 438 QTc: 465 Interpretive Statements SINUS RHYTHM ATRIAL PREMATURE COMPLEXES ST-T WAVE ABNORMALITY IN ANTEROLAT/HIGH LAT LEADS- CONSIDER ISCHEMIA ABNORMAL ECG COMPARED TO ECG 03/25/2021 14:39:09 RIGHT BUNDLE BRANCH BLOCK HAS RESOLVED ST-T WAVE ABNORMALITY IN ANTEROLAT/HIGH LAT LEADS- CONSIDER ISCHEMIA NOW PRESENT Electronically Signed On 04-03-2022 11:12:41 CDT by Ajit Champagne D.O.
[2022-04-03 10:59] LABS: Basophils Absolute Auto 0.1 K/mm3 (0.0-0.1); Basophils Percent Auto 1.3 % (0.2-1.2); Eosinophils Absolute Auto 0.2 K/mm3 (0-0.3); Eosinophils Percent Auto 3.2 % (0-4.4); Hematocrit 39.9 % (37.0-47.0); Hemoglobin 13.5 g/dL (12.0-15.0); Immature Granulocyte Absolute 0.02 K/mm3 (0.00-0.031); Immature Granulocyte Percent A 0.4 % (0-0.5); Lymphocytes Percent Auto 32.1 % (18.3-44.2); Mean Corpuscular HGB Conc 33.8 g/dl (32-36); Mean Corpuscular Hemoglobin 29.8 pg (26-34); Mean Corpuscular Volume 88.1 fl (80-100); Mean Platelet Volume 9.6 fl (7.4-10.4); Monocytes Absolute Auto 0.4 K/mm3 (0.1-0.6); Monocytes Percent Auto 8.8 % (2.6-8.5); Neutrophils Absolute Auto 2.5 K/mm3 (1.3-6.7); Neutrophils Percent Auto 54.2 % (45.5-73.1); Platelet Count Result 228 k/mm3 (150-375); Red Blood Count 4.53 M/mm3 (4.2-5.4); Red Cell Distribution Width 13.8 % (11.5-14.5); White Blood Count 4.7 K/mm3 (4.5-10.0)
[2022-04-03 11:11] LABS: Alanine Aminotransferase 33 U/L (6-35); Albumin Level 3.9 g/dL (3.5-5.1); Alkaline Phosphatase 101 U/L (38-126); Anion Gap 7 mmol/L (8-16); Aspartate Amino Transferase 40 U/L (14-36); Bilirubin,Total 0.5 mg/dL (0.2-1.3); Blood Urea Nitrogen 16 mg/dL (7-17); Carbon Dioxide 25 mmol/L (22-30); Chloride 105 mmol/L (98-107); Estimated CRCL calculation 62 ml/min; Estimated Glomerular Filt Rate > 60; Glucose 103 mg/dL (65-110); Potassium 3.5 mmol/L (3.4-5.0); Sodium 137 mmol/L (137-145)
--- NOTE | 2022-04-03 12:43 | PC.NURSE ---
Addendum entered by Fide Hernandez RN 04/03/22 12:46: CORRECTION 50MG Original Note: 5mg PROPOFOL GIVEN BY DR Roshni TY
--- NOTE | 2022-04-03 12:44 | PC.NURSE ---
50MG PROPOFOL GIVEN IVP BY DR VANGIE TY
--- NOTE | 2022-04-03 12:48 | PC.NURSE ---
50MG PROPOFOL GIVEN IVP BY DR Francisco TY
--- NOTE | 2022-04-03 12:50 | PC.NURSE ---
HIP NOTED TO BE BACK IN PLACE. AWAITING XRAY
== END 2022-04-03 13:50 | disposition home or self-care (01) ==
PROVIDERS: Emergency Provider Emergency Medicine; PCP Internal Medicine
DX: T84.020A Dislocation of internal right hip prosthesis, initial encounter (principal); E78.5 Hyperlipidemia, unspecified; I10 Essential (primary) hypertension; H81.09 Meniere's disease, unspecified ear; G62.9 Polyneuropathy, unspecified; R73.03 Prediabetes; E55.9 Vitamin D deficiency, unspecified; Z79.01 Long term (current) use of anticoagulants; Y79.2 Prosthetic and other implants, materials and accessory orthopedic devices associated with adverse incidents; Z98.1 Arthrodesis status; Z96.643 Presence of artificial hip joint, bilateral
CPT/HCPCS: 27265; 36415; 71045; 73502; 80053; 85025; 93005; 99285

== ENCOUNTER → 2022-08-05 08:56 | Outpatient (CLI) | payer MEDICARE, SELFPAY ==
--- NOTE | ~2022-08-05 | MMUS_ITS ---
EXAMINATION: MM diagnostic silvia BI w dari, US breast RT complete HISTORY: Six-month follow-up of right breast asymmetry in left breast microcalcifications TECHNIQUE: ML, MLO and CC 3-D tomosynthesis images of both breasts were performed and synthetic 2-D i mages were generated. Magnification views of left breast in ML, MLO and CC projections. CAD analysis was submitted and interpreted. High resolution complete right breast ultrasound examination including all 4 quadrants and subareolar area was performed. COMPARISON: 10/22/2020 bilateral diagnostic mammogram 03/07/2020 diagnostic bilateral mammogram and limited right breast ultrasound Breast parenchymal composition: There is heterogeneously dense breast tissue, which may obscure small masses. FINDINGS: MAMMOGRAPHIC FINDINGS: No interval suspicious mass or architectural distortion or significant new or developing density of e ither breast is evident. Lateral benign calcifications are noted. No malignant calcification, skin th ickening or retraction is detected. ULTRASOUND: No suspicious mass of the right breast is detected. No abnormal shadowing. No right breast cyst is id entified. IMPRESSION: 1. No mammographic evidence of malignancy 2. Routine mammographic screening is recommended BI-RADS Category 2: Benign finding(s). Reviewed, dictated and finalized at location A. [employer] IMPRESSION: 1. No mammographic evidence of malignancy 2. Routine mammographic screening is recommended BI-RADS Category 2: Benign finding(s).
== END ==
PROVIDERS: PCP Internal Medicine; Visit Provider Internal Medicine
DX: R92.8 Other abnormal and inconclusive findings on diagnostic imaging of breast (principal)
CPT/HCPCS: 76641; 77062; 77066; G0279

== ENCOUNTER 2022-10-30 11:22 | Outpatient (CLI) | payer MEDICARE, SELFPAY ==
--- NOTE | ~2022-10-30 | XR_ITS ---
XR chest 2V DATE: 10/30/2022 13:53 INDICATION: Cough TECHNIQUE: PA and lateral views COMPARISON: 04/03/2022 one view chest FINDINGS: Left transvenous pacemaker device with leads overlying right atrium and right ventricle. No rmal heart size. Aortic calcification and mild unfolding. No hilar or mediastinal enlargement. No pulmonary infiltrate or consolidation, pleural effusion or pulmonary vascular congestion or pneumo thorax. The lumbar spine pedicle screws and rods. Surgical clips, right upper quadrant, consistent with shane cystectomy. Osteopenia. IMPRESSION: No active cardiopulmonary disease Dual-lead left pacemaker device Aortic atherosclerosis Status post posterior lumbar spinal fusion Status post cholecystectomy Reviewed, dictated and finalized at location A.
--- NOTE | ~2022-10-30 | XR_ITS ---
XR sinus min 3V DATE: 10/30/2022 13:54 INDICATION: Nasal congestion TECHNIQUE: indira Suarez, submental vertical views COMPARISON: None FINDINGS: The paranasal sinuses are normally developed and aerated. The mastoid air cells likewise are normally developed and aerated. IMPRESSION: Patent paranasal sinuses and mastoid air cells Reviewed, dictated and finalized at location A.
[2022-10-30 13:12] LABS: Influenza A QL RT-PCR Negative (Negative); Influenza B QL RT-PCR Negative (Negative); SARS-CoV-2 RNA PCR Negative
== END 2022-10-30 11:23 | disposition home or self-care (01) ==
PROVIDERS: PCP Internal Medicine; Visit Provider Internal Medicine
DX: R05.9 Cough, unspecified (principal); R09.81 Nasal congestion; Z20.822 Contact with and (suspected) exposure to COVID-19; I70.0 Atherosclerosis of aorta; Z95.0 Presence of cardiac pacemaker; Z98.1 Arthrodesis status
CPT/HCPCS: 70220; 71046; 87636

== ENCOUNTER 2022-12-17 12:04 | Outpatient (CLI) | payer MEDICARE, SELFPAY ==
--- NOTE | ~2022-12-17 | XR_ITS ---
Left Shoulder Technique: AP and axillary views were obtained. Clinical History: Pain Findings: No fracture or dislocation is seen. Osseous alignment is anatomic. Inferomedial humeral hea d osteophyte present. AC joint is intact. Soft tissues are unremarkable. Impression: Mild glenohumeral joint degenerative change. Reviewed, dictated and finalized at [facility]. Impression: Mild glenohumeral joint degenerative change.
== END 2022-12-17 12:05 | disposition home or self-care (01) ==
PROVIDERS: PCP Internal Medicine; Visit Provider Internal Medicine
DX: M25.512 Pain in left shoulder (principal); R93.6 Abnormal findings on diagnostic imaging of limbs
CPT/HCPCS: 73030

== ENCOUNTER 2023-01-08 09:25 | Outpatient (CLI) | payer MEDICARE, SELFPAY ==
--- NOTE | 2023-01-08 13:45 | SLEEP ---
Paper documentation exists on this patient due to [employer] downtime on 01/07/23 from to [[id number]] .
--- NOTE | 2023-01-18 09:53 | WPDHOMESLEEP ---
Sleep Study - Home Unattended Date of Study: 01/07/23 Ordering Provider: Jeremy Hobbs MD Interpreting Provider: Macie Cavanaugh MD Home Sleep Study Type: Watch PAT Height: 1.66 m Weight: 77.111 kg Body Mass Index: 27.8 Neck Circumference (inches): 13.5 [place]: 12 Reason for Sleep Study Evaluation of difficulty falling asleep and excessive daytime sleepiness. Sleep History Macie Briseno is a 78-year-old female with history of atrial fibrillation, hypertrophic cardiomyopathy, angina, AV block s/p pacemaker placement who underwent a home sleep test ordered by her hide curer for evaluation of dyspnea on exertion and frequent daytime sleepiness. She rarely awakens from sleep short of breath. She occasionally awakens at night with cough. She frequently snores. She occasionally snores loudly enough that others complain. She sleeps in a separate room from her partner who is restless, also has a hard time falling asleep at night. She frequently has trouble sleeping when she has a cold. She never suddenly wakes up gasping for breath during the night. She rarely sweats excessively at night. She rarely notices her heart pounding or beating irregularly during the night. She occasionally falls asleep during the day. She never falls asleep while driving. She rarely experiences loss of muscle tone with strong emotion. She never feels paralyzed on waking or falling asleep. She occasionally experiences vivid dreams upon waking or falling asleep. She does not feel afraid of going to sleep. She occasionally has nightmares. She frequently recalls her dreams. She frequently has thoughts racing through her mind. She frequently feels sad or depressed. She frequently feels anxiety or worry about things. She occasionally notices parts of her body jerk. She rarely kicks during the night. She occasionally feels crawling or aching feelings in her legs. She frequently feels leg pain at night. She rarely grinds her teeth and never wakes up with morning jaw pain. She occasionally feels bothered by pain during the day and occasionally is awakened by pain during the night. She frequently wakes up feeling stiff, sore, and achy in the morning with pain in her neck, spine, or joints. Normal bedtime is around 11pm on the weekdays and same on the weekends, taking 1 to 1.5 hours to fall asleep. She typically gets about 6 to 7 hours of sleep per night. Her wake up time is around 6am on the weekdays and same on the weekends. She typically wakes up around twice per night, awake 5 to 10 minutes or more to go to the bathroom, easily returns to sleep. She takes naps at times, and a short nap lasting 10-15 minutes can be refreshing, Habits: Never tobacco smoker. Drinks about 3 to 4 caffeinated beverages per day. Drinks 1 or 2 glasses of wine 3 to 4 times per week. No recreational drug use. [facility] Past Medical History Medical History (Updated 12/17/22 @ 15:04 by Elizabeth Cheng [facility]) Allergic rhinitis Biceps tendonitis on left Chronic low back pain Chronic right hip pain Degenerative joint disease Depression Dislocated hip Encounter for Medicare annual wellness exam Encounter for routine adult health examination with abnormal findings Encounter for routine adult health examination without abnormal findings Fatigue Hyperlipidemia Hypertension Insomnia Left shoulder pain Menieres disease Microvascular angina Peripheral neuropathy Post menopausal syndrome Pre-diabetes Sacroiliitis Snoring Vitamin D deficiency Surgical History Surgical History Cochlear implant in place (~05/2020) Left cochlear implant. History of back surgery Fused from L2-S1. History of cholecystectomy History of cochlear implant History of total replacement of both hip joints Family History Family History Mother , Lung cancer, smoker. Lung cancer Social History S
[2023-01-18 10:06] VITALS: BMI 27.8
== END 2023-01-08 14:19 | disposition home or self-care (01) ==
LOC: ANHCSM 09:26
PROVIDERS: PCP Internal Medicine; Visit Provider Internal Medicine Cardiovascular Disease
DX: G47.10 Hypersomnia, unspecified (principal); I48.0 Paroxysmal atrial fibrillation
CPT/HCPCS: 95800

== ENCOUNTER 2023-01-28 14:24 | Outpatient (CLI) | payer MEDICARE, SELFPAY ==
--- NOTE | ~2023-01-28 | XR_ITS ---
EXAMINATION: XR knee RT min 4V DATE: 01/28/2023 14:48 INDICATION: Right knee pain TECHNIQUE: Weight bearing anteroposterior and Peterson, sunrise, and flexed lateral views of the rig ht knee were obtained COMPARISON: None. FINDINGS: Mild genu valgus. No fracture. Moderate to severe joint space narrowing the lateral compartment great est within the in flexion. Moderate-sized associated marginal osteophytes at the lateral compartment. Joint spaces in the medial compartment is normal. Small marginal osteophytes at the patellofemoral c ompartment. No joint effusion/layering lipohemarthrosis. Soft tissues are unremarkable. IMPRESSION: 1. Right knee osteoarthritis, moderate to severe in the lateral compartment and mild in the patellofe moral compartment. Reviewed, dictated and finalized at location B. IMPRESSION: 1. Right knee osteoarthritis, moderate to severe in the lateral compartment and mild in the patellofemoral compartment.
== END 2023-01-28 14:25 | disposition home or self-care (01) ==
PROVIDERS: PCP Internal Medicine; Visit Provider Internal Medicine
DX: M17.11 Unilateral primary osteoarthritis, right knee (principal)
CPT/HCPCS: 73564

== ENCOUNTER 2023-02-11 13:18 | Outpatient (CLI) | payer MEDICARE, SELFPAY ==
[2023-02-11 14:36] LABS: Basophils Absolute Auto 0.1 K/mm3 (0.0-0.1); Basophils Percent Auto 1.1 % (0.2-1.2); Eosinophils Absolute Auto 0.2 K/mm3 (0-0.3); Eosinophils Percent Auto 4.3 % (0-4.4); Hemoglobin 13.7 g/dL (12.0-15.0); Immature Granulocyte Absolute 0.01 K/mm3 (0.00-0.031); Immature Granulocyte Percent A 0.2 % (0-0.5); Lymphocytes Absolute Auto 1.52 K/mm3 (0.9-3.2); Lymphocytes Percent Auto 32.5 % (18.3-44.2); Mean Corpuscular HGB Conc 33.4 g/dl (32-36); Mean Corpuscular Hemoglobin 29.5 pg (26-34); Mean Corpuscular Volume 88.4 fl (80-100); Mean Platelet Volume 10.5 fl (7.4-10.4); Monocytes Absolute Auto 0.4 K/mm3 (0.1-0.6); Monocytes Percent Auto 8.5 % (2.6-8.5); Neutrophils Absolute Auto 2.5 K/mm3 (1.3-6.7); Neutrophils Percent Auto 53.4 % (45.5-73.1); Platelet Count Result 258 k/mm3 (150-375); Red Blood Count 4.64 M/mm3 (4.2-5.4); Red Cell Distribution Width 14.2 % (11.5-14.5); White Blood Count 4.7 K/mm3 (4.5-10.0)
[2023-02-11 15:34] LABS: Free T4 Free Thyroxine 0.82 ng/mL (0.78-2.19)
[2023-02-11 16:57] LABS: Alanine Aminotransferase 30 U/L (6-35); Albumin Level 4.2 g/dL (3.5-5.1); Alkaline Phosphatase 134 U/L (38-126); Anion Gap 4 mmol/L (8-16); Aspartate Amino Transferase 38 U/L (14-36); Bilirubin,Total 0.5 mg/dL (0.2-1.3); Blood Urea Nitrogen 18 mg/dL (7-17); Calcium 9.1 mg/dL (8.4-10.2); Carbon Dioxide 29 mmol/L (22-30); Chloride 105 mmol/L (98-107); Cholesterol 152 mg/dL (0-200); Estimated Glomerular Filt Rate > 60; Glucose 85 mg/dL (65-110); HDL Direct 54 mg/dL; Sodium 138 mmol/L (137-145); Triglycerides 205 mg/dL (<150)
[2023-02-11 17:08] LABS: LDL Cholesterol Direct 56 mg/dL
[2023-02-11 18:16] LABS: Hemoglobin A1C 5.4 % (<5.7)
== END 2023-02-11 13:19 | disposition home or self-care (01) ==
LOC: ANHLAB 13:19
PROVIDERS: PCP Internal Medicine; Visit Provider Internal Medicine
DX: I10 Essential (primary) hypertension (principal); E04.1 Nontoxic single thyroid nodule; R94.6 Abnormal results of thyroid function studies; R73.03 Prediabetes; E78.2 Mixed hyperlipidemia
CPT/HCPCS: 36415; 80053; 80061; 83036; 84439; 84443; 85025

== ENCOUNTER 2023-05-29 09:33 | Outpatient (CLI) | payer MEDICARE, SELFPAY ==
--- NOTE | ~2023-05-29 | US_ITS ---
EXAMINATION: US venous doppler LE RT DATE: 05/29/2023 10:28 INDICATION: Right lower limb pain with palpable cord/lump at the medial right lower limb TECHNIQUE: Grayscale ultrasound images without and with compression and Doppler ultrasound images of the right lower extremity veins were obtained. COMPARISON: None. FINDINGS: The visualized portions of right common femoral vein, profunda (deep) femoral vein, femoral vein, pop liteal vein, peroneal trunk, posterior tibial veins, peroneal veins, gastrocnemius vein and greater s aphenous vein outflow are patent. The right greater saphenous vein is also patent and compressible mo re distally at the site of pain. IMPRESSION: 1. No deep venous thrombosis in the right lower limb. Reviewed, dictated and finalized at location A.
[2023-05-29 09:56] LABS: Basophils Absolute Auto 0.1 K/mm3 (0.0-0.1); Basophils Percent Auto 1.4 % (0.2-1.2); Eosinophils Absolute Auto 0.1 K/mm3 (0-0.3); Eosinophils Percent Auto 2.9 % (0-4.4); Hematocrit 41.3 % (37.0-47.0); Hemoglobin 13.6 g/dL (12.0-15.0); Immature Granulocyte Absolute 0.01 K/mm3 (0.00-0.031); Immature Granulocyte Percent A 0.2 % (0-0.5); Lymphocytes Absolute Auto 1.33 K/mm3 (0.9-3.2); Lymphocytes Percent Auto 30.1 % (18.3-44.2); Mean Corpuscular HGB Conc 32.9 g/dl (32-36); Mean Corpuscular Hemoglobin 29.2 pg (26-34); Mean Corpuscular Volume 88.8 fl (80-100); Monocytes Absolute Auto 0.4 K/mm3 (0.1-0.6); Monocytes Percent Auto 8.4 % (2.6-8.5); Neutrophils Absolute Auto 2.5 K/mm3 (1.3-6.7); Platelet Count Result 244 k/mm3 (150-375); Red Blood Count 4.65 M/mm3 (4.2-5.4); Red Cell Distribution Width 13.9 % (11.5-14.5); White Blood Count 4.4 K/mm3 (4.5-10.0)
[2023-05-29 10:08] LABS: INR 1.1; Prothrombin Time 14.4 Seconds (11.1-14.7)
== END 2023-05-29 09:34 | disposition home or self-care (01) ==
PROVIDERS: PCP Internal Medicine; Visit Provider Internal Medicine
DX: M79.89 Other specified soft tissue disorders (principal); M79.604 Pain in right leg
CPT/HCPCS: 36415; 85025; 85610; 85730; 93971

== ENCOUNTER 2023-07-31 16:13 | Outpatient (CLI) | payer MEDICARE, SELFPAY ==
[2023-07-31 16:43] LABS: Basophils Absolute Auto 0.1 K/mm3 (0.0-0.1); Basophils Percent Auto 1.1 % (0.2-1.2); Eosinophils Absolute Auto 0.2 K/mm3 (0-0.3); Eosinophils Percent Auto 2.9 % (0-4.4); Hematocrit 40.1 % (37.0-47.0); Hemoglobin 12.9 g/dL (12.0-15.0); Immature Granulocyte Absolute 0.01 K/mm3 (0.00-0.031); Immature Granulocyte Percent A 0.2 % (0-0.5); Lymphocytes Absolute Auto 1.89 K/mm3 (0.9-3.2); Lymphocytes Percent Auto 34.6 % (18.3-44.2); Mean Corpuscular HGB Conc 32.2 g/dl (32-36); Mean Corpuscular Hemoglobin 28.7 pg (26-34); Mean Corpuscular Volume 89.3 fl (80-100); Monocytes Absolute Auto 0.5 K/mm3 (0.1-0.6); Monocytes Percent Auto 8.4 % (2.6-8.5); Neutrophils Absolute Auto 2.9 K/mm3 (1.3-6.7); Neutrophils Percent Auto 52.8 % (45.5-73.1); Platelet Count Result 289 k/mm3 (150-375); Red Blood Count 4.49 M/mm3 (4.2-5.4); Red Cell Distribution Width 13.7 % (11.5-14.5); White Blood Count 5.5 K/mm3 (4.5-10.0)
[2023-07-31 16:54] LABS: Alanine Aminotransferase 23 U/L (6-35); Alkaline Phosphatase 140 U/L (38-126); Anion Gap 8 mmol/L (8-16); Aspartate Amino Transferase 33 U/L (14-36); Bilirubin,Total 0.4 mg/dL (0.2-1.3); Blood Urea Nitrogen 20 mg/dL (7-17); Carbon Dioxide 26 mmol/L (22-30); Chloride 106 mmol/L (98-107); Cholesterol 135 mg/dL (0-200); Estimated Glomerular Filt Rate > 60; Glucose 95 mg/dL (65-110); HDL Direct 61 mg/dL; Sodium 140 mmol/L (137-145); Triglycerides 127 mg/dL (<150)
[2023-07-31 17:06] LABS: LDL Cholesterol Direct 53 mg/dL
[2023-07-31 17:09] LABS: Hemoglobin A1C 5.5 % (<5.7)
[2023-07-31 17:26] LABS: Free T4 Free Thyroxine 0.94 ng/mL (0.78-2.19); Vitamin D 25 Hydroxy 41.4 ng/mL
== END 2023-07-31 16:14 | disposition home or self-care (01) ==
LOC: ANHLAB 16:15
PROVIDERS: PCP Internal Medicine; Visit Provider Internal Medicine
DX: R94.6 Abnormal results of thyroid function studies (principal); E78.5 Hyperlipidemia, unspecified; I10 Essential (primary) hypertension; R73.03 Prediabetes; E55.9 Vitamin D deficiency, unspecified
CPT/HCPCS: 36415; 80053; 80061; 82306; 83036; 84439; 84443; 85025

== ENCOUNTER 2023-08-13 09:26 | Outpatient (CLI) | payer MEDICARE, SELFPAY ==
--- NOTE | ~2023-08-13 | DEXA_ITS ---
Bone Density Report Name: CITLALY HURTADO Age: 78 Sex: Female Ethnicity: White Date of : 1945 Indication: postmenopausal; screening for osteoporosis; height loss; Referring Provider: SULY DAY Study: Bone densitometry was performed. Exam Date: August 13, 2023 Accession number: [id number] Bone Density: Region BMD T-score Z-score Classification Total Forearm (Left) 0.483 -1.8 0.9 1/3 Forearm (Left) 0.609 -1.4 1.4 UD Forearm (Left) 0.390 -0.9 1.1 Total Forearm (Right) 0.489 -1.7 1.0 1/3 Forearm (Right) 0.618 -1.3 1.5 UD Forearm (Right) 0.407 -0.6 1.4 World Health Organization criteria for BMD impression classify patients as: Normal (T-score at or above -1.0), Osteopenia (T-score between -1.0 and -2.5), or Osteoporosis (T-score at or below -2.5). Clinical Information Provided by Patient: Patient maximum height was 67.0 Menopause Age: 51 No regular weight bearing exercise Drinks caffeinated beverages Onset of menses at age 14 Number of children 0 Impression: The patient has low bone mass, based on the Left Third Radius T-score. Discussion: BONE DENSITY IS LOW AT ONE OR MORE SKELETAL SITES. This patient's lowest T-score is low at one or more skeletal sites. It meets the World Health Organization's (WHO) criteria for ?low bone mass? (T-score between -1.0 and -2.5). The patient's 10-year risk of fracture as calculated by FRAX is less than the threshold where pharmacological therapy is recommended by the National Osteoporosis Foundation (NOF). However, all treatment decisions require clinical judgment and consideration of individual patient factors, including patient preferences, comorbidities, previous drug use, risk factors not captured in the FRAX model (e.g., frailty, falls, vitamin D deficiency, increased bone turnover, interval significant decline in bone density) and possible under or overestimation of fracture risk by FRAX. The patient should follow a healthful lifestyle (good nutrition with adequate calcium and vitamin D, and appropriate weight-bearing exercise). Follow-Up: Consider repeating this study in 2 to 3 years to reassess this patient's status, or sooner if there is some new clinical indication. Reported by: JENNIFER on 08/13/2023 9:53:00 AM. Reviewed, dictated and finalized at location ABalaji VALENZUELA
== END 2023-08-13 09:27 | disposition home or self-care (01) ==
PROVIDERS: PCP Internal Medicine; Visit Provider Internal Medicine
DX: M85.80 Other specified disorders of bone density and structure, unspecified site (principal); Z78.0 Asymptomatic menopausal state
CPT/HCPCS: 77081

== ENCOUNTER 2023-10-21 11:41 | Outpatient (CLI) | payer MEDICARE, SELFPAY ==
--- NOTE | ~2023-10-21 | XR_ITS ---
EXAMINATION: XR shoulder RT min 2V, XR elbow RT 2V, XR humerus RT, XR ribs RT 2V w CXR 2V DATE: 10/21/2023 12:21 ( INDICATION: Right rib and upper arm pain post fall TECHNIQUE: 1. PA and lateral views of the chest and 3 views of the right ribs were obtained. 2. AP internally and externally rotated, AP oblique externally rotated and transscapular Y views of t he affected shoulder were obtained. 3. AP and lateral views of the right humerus were obtained. 4. AP and lateral views of the right elbow were obtained. COMPARISON: None FINDINGS: Chest and right ribs: No right rib fractures identified. Lungs are clear with no focal airspace opacities, pulmonary edema, pleural effusion or pneumothorax. Cardiomediastinal silhouette is normal. Dual lead pacemaker/AICD s een with leads projecting over the expected locations of the right atrium and right ventricle. Cholec ystectomy clips in right upper quadrant. Moderate spondylosis at the lower thoracic and upper lumbar spine with partially visualized instrumented L1-L4 posterior spinal fusion with bilateral vertical ro d and pedicle screw fixation. Additional metallic densities projecting over the L2-L3 and L3-L4 disc spaces suggesting associated anterior spinal fusion. Right shoulder, humerus and elbow: Normal alignment. No fracture. Mild polyarticular osteoarthritis including at the right chromic clav icular, glenohumeral and elbow joints. No elbow joint effusion. Soft tissues are unremarkable. IMPRESSION: No right rib fractures or acute cardiopulmonary disease. 2. Mild osteoarthritis at the right shoulder and elbow. No acute osseous abnormality at the right upp er arm from the shoulder through the elbow. Reviewed, dictated and finalized at location A. IMPRESSION: No right rib fractures or acute cardiopulmonary disease. 2. Mild osteoarthritis at the right shoulder and elbow. No acute osseous abnorm ality at the right upper arm from the shoulder through the elbow. IMPRESSION: No right rib fractures or acute cardiopulmonary disease. 2. Mild osteoarthritis at the right shoulder and elbow. No acute osseous abnorm ality at the right upper arm from the shoulder through the elbow. IMPRESSION: No right rib fractures or acute cardiopulmonary disease. 2. Mild osteoarthritis at the right shoulder and elbow. No acute osseous abnorm ality at the right upper arm from the shoulder through the elbow.
== END 2023-10-21 11:42 | disposition home or self-care (01) ==
LOC: ANHIMG 11:52
PROVIDERS: PCP Internal Medicine; Visit Provider Internal Medicine
DX: M19.011 Primary osteoarthritis, right shoulder (principal); M19.021 Primary osteoarthritis, right elbow; R07.81 Pleurodynia; W19.XXXA Unspecified fall, initial encounter
CPT/HCPCS: 71046; 71100; 73030; 73060; 73070

== ENCOUNTER 2024-02-29 13:38 | Outpatient (CLI) | payer MEDICARE, SELFPAY ==
[2024-02-29 14:13] LABS: Basophils Percent Auto 0.6 % (0.2-1.2); Eosinophils Absolute Auto 0.1 K/mm3 (0-0.3); Eosinophils Percent Auto 2.8 % (0-4.4); Hemoglobin 13.6 g/dL (12.0-15.0); Immature Granulocyte Absolute 0.02 K/mm3 (0.00-0.031); Immature Granulocyte Percent A 0.4 % (0-0.5); Lymphocytes Absolute Auto 1.62 K/mm3 (0.9-3.2); Lymphocytes Percent Auto 32.9 % (18.3-44.2); Mean Corpuscular HGB Conc 32.4 g/dl (32-36); Mean Corpuscular Hemoglobin 27.9 pg (26-34); Mean Corpuscular Volume 86.2 fl (80-100); Mean Platelet Volume 9.8 fl (7.4-10.4); Monocytes Absolute Auto 0.4 K/mm3 (0.1-0.6); Monocytes Percent Auto 7.9 % (2.6-8.5); Neutrophils Absolute Auto 2.7 K/mm3 (1.3-6.7); Neutrophils Percent Auto 55.4 % (45.5-73.1); Platelet Count Result 296 k/mm3 (150-375); Red Blood Count 4.87 M/mm3 (4.2-5.4); White Blood Count 4.9 K/mm3 (4.5-10.0)
[2024-02-29 14:44] LABS: Hemoglobin A1C 5.8 % (<5.7)
[2024-02-29 15:07] LABS: Free T4 Free Thyroxine 1.09 ng/mL (0.78-2.19); Vitamin D 25 Hydroxy 37.1 ng/mL
[2024-02-29 16:08] LABS: Alanine Aminotransferase 29 U/L (6-35); Albumin Level 4.5 g/dL (3.5-5.1); Alkaline Phosphatase 107 U/L (38-126); Anion Gap 10 mmol/L (4-12); Aspartate Amino Transferase 36 U/L (14-36); Bilirubin,Total 0.5 mg/dL (0.2-1.3); Blood Urea Nitrogen 19 mg/dL (7-17); Calcium 9.2 mg/dL (8.4-10.2); Carbon Dioxide 28 mmol/L (22-30); Chloride 101 mmol/L (98-107); Cholesterol 150 mg/dL (0-200); Estimated Glomerular Filt Rate > 60; Glucose 81 mg/dL (65-110); HDL Direct 71 mg/dL; LDL Cholesterol Direct 58 mg/dL; Sodium 139 mmol/L (137-145); Triglycerides 164 mg/dL (<150)
== END 2024-02-29 13:39 | disposition home or self-care (01) ==
LOC: ANHLAB 13:42
PROVIDERS: PCP Internal Medicine; Visit Provider Internal Medicine
DX: E78.5 Hyperlipidemia, unspecified (principal); R94.6 Abnormal results of thyroid function studies; R73.03 Prediabetes; I10 Essential (primary) hypertension; E55.9 Vitamin D deficiency, unspecified
CPT/HCPCS: 36415; 80053; 80061; 82306; 83036; 84439; 84443; 85025

== ENCOUNTER 2024-03-17 14:22 | Outpatient (CLI) | payer MEDICARE, SELFPAY ==
--- NOTE | ~2024-03-17 | MM_ITS ---
EXAMINATION: MM screening silvia BI w dari HISTORY: Screening TECHNIQUE: Craniocaudal and mediolateral oblique 3-D tomosynthesis images were obtained and synthetic 2-D images were generated. CAD analysis was submitted and interpreted. COMPARISON: Comparison to multiple prior studies sequentially, with oldest reviewed study dated 03/17. BREAST PARENCHYMAL COMPOSITION: Not dense: There are scattered areas of fibroglandular density. FINDINGS: There is no evidence of suspicious mass, calcification, or architectural distortion to sugg est malignancy in either breast. There has been no suspicious interval change. IMPRESSION: 1. No mammographic evidence of malignancy. 2. Recommend routine screening mammography in one year. BI-RADS Category 1: Negative Reviewed, dictated and finalized at location B.
== END 2024-03-17 14:23 | disposition home or self-care (01) ==
PROVIDERS: PCP Internal Medicine
DX: Z12.31 Encounter for screening mammogram for malignant neoplasm of breast (principal)
CPT/HCPCS: 77063; 77067

== ENCOUNTER 2024-07-08 16:56 | Outpatient (CLI) | payer MEDICARE, SELFPAY ==
[2024-07-08 17:41] LABS: Add Urine Microscopic? YES; Appearance Urine Clear (Clear); Bacteria Urine None Seen /hpf; Bilirubin Urine Negative (Negative); Blood Urine Negative (Negative); Color Urine Yellow (Yellow); Glucose Urine UA Negative (Negative); Ketones Urine Negative (Negative); Leukocyte Esterase Ur Trace LEU/UL (Negative); Nitrate Urine Negative (Negative); Non Pathogenic Casts 0-2; Protein Urine Negative (Negative); RBC Urine 0-2 /hpf (0-2); Specific Grav Ur 1.007 (1.001-1.035); Squamous Epithelial Cell Urine None Seen /hpf (Few); Urobilinogen Urine 0.2 mg/dL (<2.0); WBC Urine 0-5 /hpf (0-3)
[2024-07-08 17:52] LABS: Alanine Aminotransferase 28 U/L (6-35); Albumin Level 4.2 g/dL (3.5-5.1); Alkaline Phosphatase 88 U/L (38-126); Anion Gap 6 mmol/L (4-12); Aspartate Amino Transferase 39 U/L (14-36); Bilirubin,Total 0.7 mg/dL (0.2-1.3); Blood Urea Nitrogen 17 mg/dL (7-17); Calcium 8.9 mg/dL (8.4-10.2); Carbon Dioxide 30 mmol/L (22-30); Chloride 102 mmol/L (98-107); Cholesterol 125 mg/dL (0-200); Estimated Glomerular Filt Rate > 60; Glucose 96 mg/dL (65-110); HDL Direct 52 mg/dL; Potassium 3.4 mmol/L (3.4-5.0); Sodium 138 mmol/L (137-145); Triglycerides 154 mg/dL (<150)
[2024-07-08 18:03] LABS: LDL Cholesterol Direct 46 mg/dL
[2024-07-08 18:05] LABS: Hemoglobin A1C 5.4 % (<5.7)
[2024-07-08 18:08] LABS: Free T4 Free Thyroxine 0.93 ng/dL (0.78-2.19); Vitamin D 25 Hydroxy 38.2 ng/mL
--- OUTSIDE RECORDS SUMMARY | 2024-07-12 08:27 | XMS_ITS | Encounter Summary ---
Author Organization [facility] Health Address [address] [place] [address] [place] [address] Care Team Providers Care Service Or Work Dispatcher Name Role Phone Unavailable Primary Care Provider Unavailabl e Encounter Details Date Type Department Care Team (Late st Contact Info) Description 02/15/1999 Orders Only [facility] [address] [place] [address] ProviderEmmanuel MD Social History Tobacco Use Types Packs/Day Years Used Date Smoking Tobacco: Never Assessed Sex and Gender Information Value Date Recorded Sex Assigned at Not on file Gender Identity Not on file Sexual Orientation Not on file documented as of this encounter Plan of Treatment Not on file documented as of this encounter Procedures Procedure Name Priority Date/Time Associated Diagnosis Comments GROSS + MICRO EXAM [facility] 08/02/2001 8: 06 AM STOPPER MAKER HELPER GROSS + MICRO EXAM [facility] 02/15/1999 4: 27 PM CDT documented in this encounter Results * GROSS + MICRO EXAM (08/02/2001 8:06 AM STOPPER MAKER HELPER) Result CASE NUMBER [id number] Comment: ORDERING PHYSICIAN ??KAYLIN DE LEON SPECIMEN TYPE ?Gallbladder Date ? 08/02/2001 Physician ?Brent De Leon Description ? The specimen is received in a single formalin-filled container labeled with the patient's name and gallbladder . ??It consists of a single gallbladder received in a plastic bag measuring 8 x 4.5 x 2.5 cm. ??The external surface is grayish-brown and yellowish. On opening the gallbladder there is about 25-30 cc. of greenish viscus bile present in the gallbladder. ??In addition there are multiple rounded, yellowish stones ranging in size from 0.2 to 1.2 cm. ??They have a bossilated or nodular surface. ??The gallbladder mucosa is greenish, velvety with multiple small yellowish pinpoint areas. ??Mailing Manager sections of the gallbladder are submitted in a single cassette. SSN/SSBN WEAPONS EQUIPMENT OPERATOR/bk Microscopic Exam ? Microscopic examination reveals multiple strips of gallbladder wall showing marked autolysis. ??The mucosa shows ghost-like remains of the surface projections with very few strips of residual viable epithelium that shows no evidence of atypia. ??The gallbladder wall is also autolyzed but focally the serosa shows marked edema and acute inflammatory infiltrates. ?? Sections of the cystic duct are not histologically remarkable with the exception of scattered chronic inflammatory cells. ??Malignancy is not seen. Diagnosis ?I. ??Gallbladder ?A. ??Acute cholecystitis with cholelithiasis. Director Media ? bk Pathologist ?James Yang M.D. [place]. ?08/03/2001 1358 <2> CPT code ? 06748 MISCELLANEOUS SAMPLES / Unknown 08/02/2001 8:06 AM STOPPER MAKER HELPER 08/02/2001 8:06 AM STOPPER MAKER HELPER Historical Provider LAB - PATHOLOGY/C YTOLOGY ORDERABLES * GROSS + MICRO EXAM (02/15/1999 4:27 PM CDT) Result CASE NUMBER [id number] Comment: ORDERING PHYSICIAN ??MARIBEL SALDANA SPECIMEN TYPE ?Polyp Cervical Date ? 02/15/1999 Physician ?Jose Gross Description ? The specimen is received in 2 containers each labeled with the patient's name. ??The first container is additionally labeled cervical polyp . ??It consists of 2 large pieces of pink-reyna semi-firm tissue measuring 2 x 1.3 x 1 and 1.6 x 1.4 x 1.3 cm. ??The pieces are slightly polypoid. ??Sections reveal solid, reyna tissue covered by thin mucosa, consistent with polyp. ??Mailing Manager pieces are submitted in cassette labeled A. The second container is additionally labeled endometrial curettings . ?? It consists of multiple pieces of red-reyna soft tissue admixed with blood and measuring 3 x 2 x 0.3 cm in aggregate. ??The entire specimen is wrapped in lens tissue paper and submitted in cassette labeled B. ?? BC/lmj Microscopic Exam ? Section labeled A reveals an endometrial polyp with superficial erosion. The endometrial stroma shows thick-walled blood vessels intermixed with dilated endometrial glands lined by a single layer of columnar to cuboidal epithelium. ??No evidence of any atypical hyperplasia or malignancy is seen. Section B reveals endocervical and endometrial fragments. ??The endocervical fragments reveal areas of squamous metaplasia. ??The endometrial fragments show some of them have a polypoid appearance. ?? These fragments consists of glands which are lined by a single layer of columnar to cuboidal epithelium with thick, fibrotic-type stroma. ?? Other fragments show irregular glands, some with secretory vacuoles and other inactive type of glands. ??No evidence of atypical hyperplasia or malignancy is seen. Diagnosis ?I. ??Tissue, cervix ?A. ??Endometrial polyp. ? II. ??Endometrial curettings ?A. ??Endometrial polyps. ?B. ??No evidence of atypical hyperplasia or malignancy. Director Media ? bk Pathologist ?Vida Shah M.D. [place]. ?02/16/1999 1138 <2> CPT code ? 75569/92176 x2 MISCELLANEOUS SAMPLES / Unknown 02/15/1999 4:27 PM CDT 02/15/1999 4:27 PM CDT Historical Provider LAB - PATHOLOGY/C YTOLOGY ORDERABLES documented in this encounter Visit Diagnoses Not on filedocumented in this encounter
--- OUTSIDE RECORDS SUMMARY | 2024-07-12 08:27 | XMS_ITS | Encounter Summary ---
Author Organization [facility] Address [address] [place] [address] Care Team Providers Care Jewelry Casting Model Maker Name Role Phone Rg Read MD Primary Care Provider [phone] Reason for Visit * Reason Comments Medication Refill Encounter Details Date Type Department Care Team (Late st Contact Info) Description 07/04/2019 Refill [facility] Internal Medicine - [address] [phone] Rg Read MD [address] [place] [phone] Social History Tobacco Use Types Packs/Day Years Used Date Smoking Tobacco: Never Smokeless Tobacco: Never Alcohol Use Standard Drinks/Week Comments Yes 0.8 (1 standard drink = 0.6 oz p ure alcohol) Sex and Gender Information Value Date Recorded Sex Assigned at Not on file Gender Identity Not on file Sexual Orientation Not on file documented as of this encounter Plan of Treatment Not on file documented as of this encounter Visit Diagnoses Not on filedocumented in this encounter Care Teams Jewelry Casting Model Maker Relationship Specialty Start Date End Date Rg Read MD [address] [place] [phone] PCP - General 03/12/01 10/29/22 documented as of this encounter
--- OUTSIDE RECORDS SUMMARY | 2024-07-12 08:27 | XMS_ITS | Referral Summary ---
Author Organization [facility] Address [address] [place] [address] Care Team Providers Care Cleaner Operator Name Role Phone Unavailable Primary Care Provider Unavailabl e Source Comments [facility],non-owned Affiliates and Associated Physician Practices is amultiple site organization consisting of ambulatory clinics and hospital sitesin [place], [place], [place] and [place]. This disclosure is being madepursuant to the Care Everywhere program and may not contain all information available regarding this patient. Last updated 18.[facility] Social History Tobacco Use Types Packs/Day Years Used Date Smoking Tobacco: Never Assessed Sex and Gender Information Value Date Recorded Sex Assigned at Not on file Gender Identity Not on file Sexual Orientation Not on file Plan of Treatment Not on file
--- OUTSIDE RECORDS SUMMARY | 2024-07-12 08:27 | XMS_ITS | Encounter Summary ---
Author Organization [facility] Address [address] [place] [address] Care Team Providers Care Magnetic Resonance Technologist Name Role Phone Rg Read MD Primary Care Provider [phone] Reason for Visit * Reason Onset Date Comments Needs Orders Written 05/20/2019 Encounter Details Date Type Department Care Team (Late st Contact Info) Description 05/20/2019 Telephone [facility] Internal Medicine - [facility] [address] [facility] [address] [place] [phone] Rg Read MD [address] [facility] [address] [place] [phone] Needs Orders Written Social History Tobacco Use Types Packs/Day Years Used Date Smoking Tobacco: Never Smokeless Tobacco: Never Alcohol Use Standard Drinks/Week Comments Yes 0.8 (1 standard drink = 0.6 oz p ure alcohol) Sex and Gender Information Value Date Recorded Sex Assigned at Not on file Gender Identity Not on file Sexual Orientation Not on file documented as of this encounter Miscellaneous Notes * Telephone Encounter - Akosua Arce - 05/20/2019 3:37 PM CDT Patient calling wanting to know how she can get a bedside commode. Informed would need an order forinsurance to pay for commode. Patient wanting to know if surgeon or Dr. Read should write the order. New orders received. Informed MD would write order. Informed d/t the weekend not sure how quicklyshalcon is needing commode, she may want to go to [employer] or a pharmacy to check out the prices. Statesshe can wait a week or so if needed. Order mailed to patient. Patient then asking for temporary handicapped placard for vehicle. Informed will check with MD and send with commode order. Note placed with order we do not have [place] paperwork. She can mail us form. documented in this encounter Plan of Treatment Not on file documented as of this encounter Visit Diagnoses Not on filedocumented in this encounter Care Teams Magnetic Resonance Technologist Relationship Specialty Start Date End Date Rg Read MD [address] [facility] [address] [place] [address] PCP - General 03/12/01 10/29/22 documented as of this encounter
--- OUTSIDE RECORDS SUMMARY | 2024-07-12 08:27 | XMS_ITS | Clinical Summary ---
Author Organization [facility] Address [address] [place] [phone] Care Team Providers Care Automatic Pilot Mechanic Name Role Phone Unavailable Primary Care Provider Unavailabl e Allergies Active Allergy Reactions Criticality Noted Date Comments Sulfa (Sulfonamide Antibiotics) Rash Low 05/17/2009 Sulindac Other (See Comments) Low 04/02/2010 GI upset Medications Medication Sig Dispensed Refills Start Date End Date Status triamterene-hydroCHLO ROthiazide (DYAZIDE) 37.5-25 mg capsule Take 1 Capsule by mouth daily. 03/23/2017 Active ALPRAZolam (XANAX) 0.5 mg tablet Take 0.5 Tablets (0.25 mg) by mouth nightly as needed. 0 04/01/2018 Active diclofenac sodium (VOLTAREN) 75 mg Tablet, Delayed Release (E.C.) Take 1 Tablet (75 mg) by mouth 2 times daily. 03/17/2019 Active busPIRone (BUSPAR) 10 mg tablet Take 1 Tablet (10 mg) by mouth daily. 30 Tablet 3 03/18/2019 Active montelukast (SINGULAIR) 10 mg tablet TAKE ONE TABLET BY MOUTH AT BEDTIME 30 Tablet 11 07/04/2019 Active diltiaZEM (CARDIZEM LA) 180 mg Extended Release 24 hour tablet Take 1 Tablet (180 mg) by mouth daily. 90 Tablet 3 07/12/2019 Active HYDROcodone-acetamino phen (NORCO) 7.5-325 mg Tablet 08/03/2019 Active gabapentin (NEURONTIN) 300 mg capsule 08/31/2019 Active PARoxetine HCl (PAXIL) 20 mg tablet Take 1 Tablet (20 mg) by mouth daily. 90 Tablet 3 09/07/2019 Active atorvastatin (LIPITOR) 20 mg tablet Take 1 Tablet (20 mg) by mouth daily at bedtime. 30 Tablet 11 10/26/2019 Active Active Problems Patient Care Coordination No te Formatting of this note migh t be different from the original. 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 Hx of decompressive lumbar laminectomy 7 Overview (04/30/2018): L4-5 and L5-S1 01/13/17 01/26/18: L2-3, L3-4 laminectomies, facetectomies, foraminotimies w/ fusion L3-5 Essential hypertension, benign 04/13/2015 S/P hip replacement 10/19/2014 Overview (04/13/2015): Left 07/07/14 Right 11/24/14 Major depressive disorder, single episode, moder ate 05/13/2012 Pure hypercholesterolemia 06/24/2011 S/P laparoscopic cholecystectomy 05/17/2009 Chronic nonseasonal allergic rhinitis due to ainsley bryson 05/17/2009 Primary osteoarthritis involving multiple joints 05/17/2009 Immunizations Name Administration Dates Next Due (PNEUMOVAX 23)(50 YRS UP) PN EUMOCOCCAL POLYSACCHARIDE (PPV23) 0.5 ML, IM 05/04/2018 (PREVNAR 13)(6 WKS UP) PNEUM OCOCCAL CONJUGATE (PCV13) 0.5 ML, IM 10/12/2015 (SHINGRIX)(50 YRS UP) ZOSTER VACCINE RECOMBINANT, 0.5 ML, IM 07/29/2018,05/24/2018 Influenza Seasonal Unspecifi ed Formulation IM 05/03/2019,05/04/2018,04/15/2017,05/25,05/16/2015,05/05/2014,05/13/2013 ,05/04/2012,04/26/2011,05/03/2009 PNEUMOVAX (PPSV23) pneumococ stephanie polysaccharide 23-valent Vaccine 04/26/2010 Zoster Vaccine Live SQ 04/26/2010 Family History Medical History Relation Name Comments Unknown Father Unknown Maternal Grandfather Other Maternal Grandmother heart f ailure Lung Cancer Mother Relation Name Status Comments Father Maternal Grandfather Maternal Grandmother Mother (Age 69 yo) Social History Tobacco Use Types Packs/Day Years Used Date Smoking Tobacco: Never Smokeless Tobacco: Never Tobacco Cessation:Counseling Given: Yes Alcohol Use Standard Drinks/Week Comments Yes 0.8 (1 standard drink = 0.6 oz p ure alcohol) Sex and Gender Information Value Date Recorded Sex Assigned at Not on file Gender Identity Not on file Sexual Orientation Not on file Last Filed Vital Signs Vital Sign Reading Time Taken Comments Blood Pressure 128/76 09/07/2019 3:08 PM RN SURGICAL Pulse 72 09/07/2019 3:08 PM RN SURGICAL Temperature 36.3 ??C (97.3 ??F) 03/30/2012 2:13 PM CD T Respiratory Rate 14 09/07/2019 3:08 PM RN SURGICAL Oxygen Saturation - - Inhaled Oxygen Concentration - - Weight 77.6 kg (171 lb) 09/07/2019 3:08 PM RN SURGICAL Height 170.2 cm (5' 7 ) 09/07/2019 3:08 PM RN SURGICAL Body Mass Index 26.78 09/07/2019 3:08 PM RN SURGICAL Plan of Treatment Health Maintenance Due Date Last Done Comments DTAP/TDAP/TD VACCINES (1 - Tdap) 1965 OSTEOPOROSIS SCREENING 08/23/2017 08/23/2015, 2009 RSV VACCINE (60+ or ) (1 - 1-dose 75+ series) 2021 INFLUENZA VACCINE (#1) 2024 0, 05/03/2019, 05/04/2018, Additional history exists COLORECTAL SCREENING Discontinued 02/25/2008 Colorectal Cancer Screening Discontinued PNEUMOCOCCAL VACCINE 65+ YEARS Completed 1 , 10/12/2015, 04/26/2010 ZOSTER VACCINE Completed 07/29/2018, 04/27, 04/26/2010 FIT-DNA Q 3 years Discontinued FIT/FOBT Q 1 year Discontinued Flex Sig/CT Colonography Q 5 years Discontinued Procedures Procedure Name Priority Date/Time Associated Diagnosis Comments XR DEXA BONE DENSITY 2 SITES Routine 08/23/2015 from Last 3 Months or Most Recently Relevant to Health Maintenance Results * XR DEXA BONE DENSITY 2 SITES (08/23/2015) Anatomical Region Laterality Modality Other Rg Read MD DIAGNOSTIC IMAGING O RDERABLES from Last 3 Months or Most Recently Relevant to Health Maintenance
--- OUTSIDE RECORDS SUMMARY | 2024-07-12 08:27 | XMS_ITS | Encounter Summary ---
Author Organization [facility] Address [address] [place] [address] Care Team Providers Care Mountain Or Glacier Guide Name Role Phone Rg Read MD Primary Care Provider [phone] Reason for Visit * Reason Comments Annual Wellness Visit (Medicare) Leg Swelling bilateral Encounter Details Date Type Department Care Team (Latest Contact Info) Description 09/07/2019 3:00 PM HUC OB Office Visit [facility] Internal Medicine [address] [address] Rg Read MD [address] [place] [address] [address] [place] [address] Essential hypertension, benign (Primary Dx); Major depressive disorder, single episode, moderate; Pure hypercholesterolemia; Inflammatory spondylopathy of lumbar region; Inflammatory spondylopathy of cervical region; Inflammatory spondylopathy of thoracic region; Encounter for routine adult health examination without abnormal findings; Chronic pain syndrome; Screening for colorectal cancer; Postmenopausal Social History Tobacco Use Types Packs/Day Years Used Date Smoking Tobacco: Never Smokeless Tobacco: Never Tobacco Cessation:Counseling Given: Yes Alcohol Use Standard Drinks/Week Comments Yes 0.8 (1 standard drink = 0.6 oz p ure alcohol) Sex and Gender Information Value Date Recorded Sex Assigned at Not on file Gender Identity Not on file Sexual Orientation Not on file documented as of this encounter Last Filed Vital Signs Vital Sign Reading Time Taken Comments Blood Pressure 128/76 09/07/2019 3:08 PM HUC OB Pulse 72 09/07/2019 3:08 PM HUC OB Temperature - - Respiratory Rate 14 09/07/2019 3:08 PM HUC OB Oxygen Saturation - - Inhaled Oxygen Concentration - - Weight 77.6 kg (171 lb) 09/07/2019 3:08 PM HUC OB Height 170.2 cm (5' 7 ) 09/07/2019 3:08 PM HUC OB Body Mass Index 26.78 09/07/2019 3:08 PM HUC OB documented in this encounter Progress Notes * Rg Read MD - 09/07/2019 3:07 PM CST Orders placed for bone density, mammogram Declines labs today Fall Risk She has had two or more falls in the past year. Tobacco Intervention She is not a tobacco user. Depression Screen Positive: PHQ-2 score >= 3 or PHQ-9 score >= 9 PHQ-2 Total: 2 (09/07/2019 3:00 PM) PHQ-9 Total: 2 (09/07/2019 3:00 PM) DEPRESSION PLAN OF CARE Her antidepressant medication was reviewed Blood Pressure BP Readings from Last 3 Encounters: 09/07/19 128/76 03/17/19 132/84 01/13/19 136/78 Normal BMI Range: 18 & older: > or = 18.5 and < 25 Body mass index is 26.78 kg/m??. Abnormal high BMI: Patient counseled on lifestyle modifications including weight loss and daily exercise. CC: Annual well visit and routine office visit. The following items were reviewed in detail and the chart updated: Medical and surgical and psychiatric history. Current medications. Allergies and medication tolerance and/or side effects. Family history. Immunization history. Current medical providers were identified and updated in the chart. Vital signs were noted. Mini-mental status was performed and scanned into the chart. Depression screening was performed and recorded in the chart. Functional status was updated and scanned into the chart. Advanced directives were discussed and education material provided. Health screening was updated which includes an annual flu shot. Eye exam was performed. CC: The patient is here to follow up to assess whether the multiple medical problems are under reasonable control and multiple issues. She is a little frustrated. She said after her last back surgery she has noticed that her feet around the ankles are a little puffy. It is much better in the morning, a little worse toward the end ofthe day and if she wears her compression stockings it is helped significantly. In terms of hypertension, denies chest pain or pressure, no palpitations, denies any shortness of breath at rest or trouble breathing with activity and no pedal edema. In terms of cholesterol, making some effort on diet in reducing fat, some effort at exercise and aware of the need to lose weight. In terms of the depression, that is doing well, sleeping well. Mood is upbeat. Inflammatory spondylopathy of the lumbar spine/cervical spine/thoracic spine, she still requires pain medications. No change in bowel habits. No constipation, diarrhea or blood. No change in urinary habits. PFS: Both preceding this visit and during the visit this patient's past medical history, (includingdiagnosis, medications and allergies) were thoroughly reviewed and updated on the problem list sheet. Additionally, the patient's family and social histories were reviewed from the chart and/or the patient and updated on the problem list sheet. Additionally, all recent laboratory testing, radiograph reports and other testing were thoroughly reviewed. Also, all correspondence from other physicians/providers were reviewed and the patient's chart was updated where needed. Finally, any correspondence and/or communication with the patient, family members/relatives and/or concerned parties were revi ewed and incorporated into this patient's chart. ROS: as above PHYSICAL EXAM: Constitutional: Well developed individual in no distress. Vital signs noted. ENT: No obvious lesions/scars on the nose or pinna. TM's not injected, no bulging, canals clear. Neck: Trachea midline, no masses or lymphadenopathy, thyroid not enlarged or tender. Respiratory: Lungs clear without wheezing, rhonchi, rales or rubs, no accessory muscles utilized. Cardiovascular: Heart regular rhythm, no murmur, carotids without bruits, upstroke normal, no JVD, the lower extremities have no edema. GI: Abdomen soft, without masses, nontender, no liver or spleen enlargement. Skin: No obvious rash, no significant lesions or ulcers, no induration or nodules. Musculoskeletal: she has reasonably good pulses in her feet. A: The swelling I think is probably a combination of venous insufficiency as well as the calcium channel nayana that she is on. Right now I don???t feel any swelling at all but she is wearing her support stockings. I told her to keep her feet up as often as possible, wear the stockings on a regular basis. She has declined all blood work today. She informed me that she plans to transfer to a physician closer to her home in [place]. Depression, stable, continue same regimen. Hypercholesterolemia: based on the most recent blood tests, reasonably well controlled. Continue same diet, exercise and medications in an effort to reduce risk of morbidity and mortality associated with hypercholesterolemia related coronary artery disease. Inflammatory spondylopathy of the lumbar spine/cervical and thoracic spines. Continue same regimen. Chronic pain syndrome. She is getting her pain medications elsewhere. Recommended a bone density screening to assess whether the patient is developing or has developed osteoporosis, thus placing this patient at increased risk for pathologic bone fractures with associated morbidity and mortality and if necessary intervene with recommendations of increased exercise, atleast 1500 mg of calcium per day and possibly medication in an attempt to increase bone density andpotentially decrease the risk of morbidity and mortality of pathologic bone fractures associated with osteoporosis. Will discuss results with the patient. Recommended a screening colonoscopy per ACP guidelines to potentially identify and possibly remove pre-cancerous and/or cancerous lesions/polyps and thereby decrease the risk of morbidity and mortality for colon cancer. I will communicate the results to the patient. Recommended a screening mammogram per ACP guidelines to potentially identify early cancerous lesions and aggressively address them with either further testing or excision, so as to potentially decrease the morbidity and mortality of breast cancer. Will discuss the results with the patient. I will transfer her records as soon as she transfers to her knew physician and wished her well. DMB/me OB documented in this encounter Plan of Treatment Not on file documented as of this encounter Visit Diagnoses Diagnosis Essential hypertension, benign- Primary Major depressive disorder, single episode, moderate Pure hypercholesterolemia Inflammatory spondylopathy of lumbar region Unspecified inflammatory spondylopathy Inflammatory spondylopathy of cervical region Unspecified inflammatory spondylopathy Inflammatory spondylopathy of thoracic region Unspecified inflammatory spondylopathy Encounter for routine adult health examination without abnormal findings Chronic pain syndrome Screening for colorectal cancer Special screening for malignant neoplasms, colon Postmenopausal Asymptomatic postmenopausal status (age-related) (natural) documented in this encounter Additional Health Concerns Assessment Noted Time PHQ-9 Depression Total Score: 2 09/07/19 20 3:00 PM HUC OB documented as of this encounter Care Teams Mountain Or Glacier Guide Relationship Specialty Start Date End Date Rg Read MD [address] [place] [address] [address] [place] [address] PCP - General 03/12/01 10/29/22 documented as of this encounter
--- OUTSIDE RECORDS SUMMARY | 2024-07-12 08:27 | XMS_ITS | Encounter Summary ---
Author Organization [facility] Address [address] [facility] Attn: Epic Prelude ADT [place] [address] Care Team Providers Care Aircraft Manager Name Role Phone Rg Read MD Primary Care Provider [phone] Encounter Details Date Type Department Care Team (Latest Contact Info) Description 09/07/2019 Travel Social History Tobacco Use Types Packs/Day Years [...] Diagnoses Not on filedocumented in this encounter Additional Health Concerns Assessment Noted Time PHQ-9 Depression Total Score: 2 09/07/19 20 3:00 PM LOADING CHECKER documented as of this encounter Care Teams Aircraft Manager Relationship Specialty Start Date End Date Rg Read MD [address] [place] [address] [address] [place] [address] PCP - General 03/12/01 10/29/22 documented as of this encounter
--- OUTSIDE RECORDS SUMMARY | 2024-07-12 08:27 | XMS_ITS | Clinical Summary ---
Author Organization [facility] Address [address] [place] [address] [place] [address] Care Team Providers Care Cabin Supervisor Name Role Phone Unavailable Primary Care Provider Unavailabl e Source Comments [facility],non-owned Affiliates and Associated Physician Practices is amultiple site organization consisting of ambulatory clinics and hospital sitesin [place], [place], [place] and [place]. This disclosure is being madepursuant to the Care Everywhere program and may not contain all information available regarding this patient. Last updated 18.[facility] [employer] Social History Tobacco Use Types Packs/Day Years Used Date Smoking Tobacco: Never Assessed Sex and Gender Information Value Date Recorded Sex Assigned at Not on file Gender Identity Not on file Sexual Orientation Not on file Plan of Treatment Health Maintenance Due Date Last Done Comments BONE DENSITY TESTING 1945 HEPATITIS C SCREENING 07/21/1964 DTAP/TDAP/TD VACCINES (1 - Tdap) 1965 ZOSTER VACCINE (1 of 2) 1996 PNEUMOCOCCAL VACCINE 65+ (1 of 1 - PCV) 2011 Respiratory Syncytial Virus (RSV) Vaccine Pt: or over 60 yrs (1 - 1-dose 75+ series) 2021 DEPRESSION SCREENING 07/27/2023 COVID-19 VACCINE ( - 2023-2 5 season) 2024 INFLUENZA VACCINE (#1) 2024 HEPATITIS B VACCINE Aged Out No longe r eligible based on patient's age to complete this topic HIB VACCINE Aged Out No longer eligi ble based on patient's age to complete this topic HPV VACCINE Aged Out No longer eligi ble based on patient's age to complete this topic MENINGOCOCCAL VACCINE Aged Out No chas jay eligible based on patient's age to complete this topic
--- OUTSIDE RECORDS SUMMARY | 2024-07-12 08:27 | XMS_ITS | Encounter Summary ---
Author Organization [facility] Address [address] [place] [address] Care Team Providers Care Outside Cutter Name Role Phone Rg Read MD Primary Care Provider [phone] Reason for Visit * Reason Onset Date Comments Ankle swelling 05/13/2019 Encounter Details Date Type Department Care Team (Late st Contact Info) Description 05/13/2019 Telephone [facility] Internal Medicine - [facility] [address] [facility] [address] [place] [address] Rg Read MD 141 [facility] [address] [place] [address] Ankle swelling Social History Tobacco Use Types Packs/Day Years [...] encounter Miscellaneous Notes * Telephone Encounter - Agatha Bolaños - 05/13/2019 1:27 PM CDT Pt states she is having severe back problems, she was hospitalized earlier this week at [facility]. Since she came home yesterday her feet and ankles are swollen, wondering what to do? She has been staying off of her feet, not moving around much. Explained she needs to get up and move around as tolerated, keep legs elevated when sitting. She has follow up with 2 spine specialists at [place]. documented in this encounter Plan of Treatment Not on file documented as of this encounter Visit Diagnoses Not on filedocumented in this encounter Care Teams Outside Cutter Relationship Specialty Start Date End Date Rg Read MD [address] [id number] PCP - General 03/12/01 10/29/22 documented as of this encounter
--- OUTSIDE RECORDS SUMMARY | 2024-07-12 08:27 | XMS_ITS | Encounter Summary ---
Author Organization [facility] Address [address] [facility] Attn: Epic Prelude ADT [place] [address] Care Team Providers Care Java Web Application Developer Name Role Phone Rg Read MD Primary Care Provider [phone] Encounter Details Date Type Department Care Team (Latest Contact Info) Description 09/13/2019 Travel Social History Tobacco Use Types Packs/Day [...] Total Score: 2 09/07/19 20 3:00 PM PASTEURIZING MACHINE OPERATOR documented as of this encounter Care Teams Java Web Application Developer Relationship Specialty Start Date End Date Rg Read MD [address] [place] [address] [address] [place] [address] PCP - General 03/12/01 10/29/22 documented as of this encounter
--- OUTSIDE RECORDS SUMMARY | 2024-07-12 08:27 | XMS_ITS | Encounter Summary ---
Author Organization [facility] Address [address] [place] [address] Care Team Providers Care Telecine Operator Name Role Phone Rg Read MD Primary Care Provider [phone] Reason for Visit * Reason Onset Date Comments Medication Review 07/12/2019 Encounter Details Date Type Department Care Team (Late st Contact Info) Description 07/12/2019 Telephone [facility] Internal Medicine - [address] [address] Rg Read MD [address] [place] [address] Medication Review Social History Tobacco Use Types Packs/Day Years [...] on filedocumented in this encounter Care Teams Telecine Operator Relationship Specialty Start Date End Date Rg Read MD [address] [place] [address] PCP - General 03/12/01 10/29/22 documented as of this encounter
--- OUTSIDE RECORDS SUMMARY | 2024-07-12 08:27 | XMS_ITS | Encounter Summary ---
Author Organization [facility] Address [address] [place] [address] Care Team Providers Care Billet Inspector Name Role Phone Rg Read MD Primary Care Provider [phone] Reason for Visit * Reason Comments Medication Refill Encounter Details Date Type Department Care Team (Late st Contact Info) Description 07/31/2019 Refill [facility] Internal Medicine - [address] [address] Rg Read MD [address] [place] [address] Social History Tobacco Use Types Packs/Day [...] on filedocumented in this encounter Care Teams Billet Inspector Relationship Specialty Start Date End Date Rg Read MD [address] [place] [address] PCP - General 03/12/01 10/29/22 documented as of this encounter
--- OUTSIDE RECORDS SUMMARY | 2024-07-12 08:27 | XMS_ITS | Encounter Summary ---
Author Organization [facility] Address [address] [place] [address] Care Team Providers Care Hydroelectric Plant Operator Name Role Phone Rg Read MD Primary Care Provider [phone] Reason for Visit * Reason Comments Medication Refill Encounter Details Date Type Department Care Team (Late st Contact Info) Description 03/18/2019 Refill [facility] Internal Medicine - [address] [address] Rg Read MD [address] [place] [address] Social History Tobacco Use Types Packs/Day [...] on filedocumented in this encounter Care Teams Hydroelectric Plant Operator Relationship Specialty Start Date End Date Rg Read MD [address] [place] [address] PCP - General 03/12/01 10/29/22 documented as of this encounter
--- OUTSIDE RECORDS SUMMARY | 2024-07-12 08:27 | XMS_ITS | Encounter Summary ---
Author Organization [facility] Address [address] [place] [address] Care Team Providers Care Bindery Production Manager Name Role Phone Rg Read MD Primary Care Provider Reason for Visit * Reason Comments Medication Refill Encounter Details Date Type Department Care Team (Late st Contact Info) Description 10/22/2019 Refill [facility] Internal Medicine - [address] [address] Rg Read MD [address] [place] [address] Social History Tobacco Use Types Packs/Day [...] Total Score: 2 09/07/19 20 3:00 PM ULTRASOUND TECHNICIAN documented as of this encounter Care Teams Bindery Production Manager Relationship Specialty Start Date End Date Rg Read MD [address] [place] [address] PCP - General 03/12/01 10/29/22 documented as of this encounter
--- OUTSIDE RECORDS SUMMARY | 2024-07-12 08:27 | XMS_ITS | Encounter Summary ---
Author Organization [facility] Address [address] [place] [address] Care Team Providers Care Motor Vehicle Dispatcher Name Role Phone Rg Read MD Primary Care Provider [phone] Reason for Visit * Reason Onset Date Comments Back Pain 04/08/2019 Encounter Details Date Type Department Care Team (Late st Contact Info) Description 04/08/2019 Telephone [facility] Internal Medicine - [facility] [address] [facility] [address] [place] [address] Rg Read MD [address] [facility] [address] [place] [address] Back Pain Social History Tobacco Use Types Packs/Day Years [...] * Telephone Encounter - Akosua Arce - 04/08/2019 2:09 PM CDT Patient calling c/o back pain. States just about finished with tramadol from 03/17/19. This has nothelped at all. Requesting assistance. New orders received. Informed MD will write a script for hydrocodone. She will need to chicken picker script at office. Informed patient she needs to contact Dr Henry office today to schedule f/u appointment. Patient states she will chicken picker script early next week. 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
--- OUTSIDE RECORDS SUMMARY | 2024-07-12 08:27 | XMS_ITS | Encounter Summary ---
Author Organization [facility] Address [address] [place] [address] Care Team Providers Care Field Hand Name Role Phone Rg Read MD Primary Care Provider [phone] Reason for Visit * Reason Onset Date Comments Chest Pain (Angina) 05/03/2019 Encounter Details Date Type Department Care Team (Late st Contact Info) Description 05/03/2019 Telephone [facility] Internal Medicine - [facility] [address] [address] Rg Read MD 141 [facility] [address] [place] [address] Chest Pain (Angina) Social History Tobacco Use Types Packs/Day Years [...] * Telephone Encounter - Akosua Arce - 05/03/2019 4:13 PM CDT Patient calling to report that she was on vacation last week and was experiencing angina (patients words). States felt like she was loosing her breathe when she was walking. Had to sit down and rest. States she has not had any of this since being back in town. States that pcp would adjust her medi cations. Questioned patient since no dx of angina in chart - has she been seen by cardiology or if she was having other sxs. Patient states she sees cardiology at [place] [facility]. States she was last seen fall of last year. Informed will discuss with MD and call her back. New orders received. Informed Dr. Read will increase her Cartia XL to 240 mg. Patient informed also needs for her to contact her skeins yarn examiner. Patient states she will try to call them yet today. New rx sent to pharm. documented in this encounter Plan of Treatment Not on file documented as of this encounter Visit Diagnoses Not on filedocumented in this encounter Care Teams Field Hand Relationship Specialty Start Date End Date Rg Read MD [address] [address] PCP - General 03/12/01 10/29/22 documented as of this encounter
--- OUTSIDE RECORDS SUMMARY | 2024-07-12 08:27 | XMS_ITS | Encounter Summary ---
Author Organization [facility] Address [address] [place] [address] Care Team Providers Care Certified Ophthalmic Assistant Name Role Phone Rg Read MD Primary Care Provider [phone] Reason for Visit * Reason Onset Date Comments Medication Refill 10/26/2019 Encounter Details Date Type Department Care Team (Late st Contact Info) Description 10/26/2019 Telephone [facility] Internal Medicine - [address] [address] Rg Read MD [address] [place] [address] [place] [address] Medication Refill Social History Tobacco Use Types Packs/Day Years [...] * Telephone Encounter - Agatha Bolaños - 10/26/2019 9:14 AM CDT Atorvastatin refill. documented in this encounter Plan of Treatment Not on file documented as of this encounter Visit Diagnoses Not on filedocumented in this encounter Additional Health Concerns Assessment Noted Time PHQ-9 Depression Total Score: 2 09/07/19 20 3:00 PM VP INFORMATION TECHNOLOGY documented as of this encounter Care Teams Certified Ophthalmic Assistant Relationship Specialty Start Date End Date Rg Read MD [address] [facility] [address] [place] [address] PCP - General 03/12/01 10/29/22 documented as of this encounter
--- OUTSIDE RECORDS SUMMARY | 2024-07-12 08:27 | XMS_ITS | Patient Health Summary ---
Author Organization [facility] [employer] Address [address] [place] [address] Care Team Providers Care Coat Presser Name Role Phone Unavailable Primary Care Provider Unavailabl e Note from [facility] [employer] [facility],non-owned Affiliates and Associated Physician Practices is amultiple site organization consisting of ambulatory clinics and hospital sitesin [place], [place], [place] and [place]. This disclosure is being madepursuant to the Care Everywhere program and may not contain all information available regarding this patient. Last updated 18.[facility] [employer] Social History Tobacco Use Types Packs/Day Years Used Date Smoking Tobacco: Never Assessed Sex and Gender Information Value Date Recorded Sex Assigned at Not on file Gender Identity Not on file Sexual Orientation Not on file Procedures * DERMATOPATHOLOGY(Performed 10/23/2015) * PATHOLOGY/GENETICS HISTORICAL-ONBASE(Performed 04/30/2012) * LAB HISTORICAL RESULTS-ONBASE(Performed 04/30/2012) * DERMATOPATHOLOGY(Performed 10/08/2011) * GROSS + MICRO EXAM(Performed 08/02/2001) * GROSS + MICRO EXAM(Performed 02/15/1999) Results * PATHOLOGY TISSUE FOR DERMATOLOGY (10/23/2015 12:00 AM CDT) Only the most recent of2 resultswithin the time period is included. Result CASE: [id number] PATIENT: MACIE BRISENO PATHOLOGIC DIAGNOSIS: A. 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 Right arm laterally antecubital fossa: ACTINIC KERATOSIS, ACANTHOLYTIC TYPE NOT PRESENT AT SAMPLED MARGIN C. Right proximal ext. 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 Left mid back: LICHEN PLANUS-LIKE KERATOSIS (BENIGN LICHENOID KERATOSIS) NOT PRESENT AT SAMPLED MARGIN CLINICAL DATA: A-D: R/O BCC. Check margins. GROSS DESCRIPTION: A: Received is one formalin filled container labeled with the patients name and designated right neck behind ear. The specimen consists of a shave biopsy measuring [id number]. The margin is inked green. Jar 0. B: Received is one formalin filled container labeled with the patients name and designated right arm laterally antecubital fossa. The specimen consists of a shave biopsy measuring [id number]. The margin is inked green. Jar 0. C: Received is one formalin filled container labeled with the patients name and designated right proximal ext. forearm. The specimen consists of a shave biopsy measuring [id number]. The margin is inked green. Jar 0. D: Received is one formalin filled container labeled with the patients name and designated left mid back. The specimen consists of a shave biopsy measuring [id number]. The margin is inked green. Jar 0. MICROSCOPIC DESCRIPTION: SPECIMEN ??A A cystic structure lined by apocrine epithelium showing 'decapitation' secretion is present in the dermis. This lesion is not present at the sampled margin of the specimen. SPECIMEN ??B There is focal parakeratosis. ??The lower half of the epidermis shows disorderly maturation of keratinocytes with nuclear pleomorphism. Focally there is a suprabasilar cleft with acantholytic cells. This lesion is not present at the sampled margin of the specimen. SPECIMEN ??C There is focal parakeratosis. ??The lower half of the epidermis shows disorderly maturation of keratinocytes with nuclear pleomorphism. ??The dermis shows a band-like, chronic inflammatory infiltrate with occasional apoptotic keratinocytes and some basal vacuolar alteration. Lesion is present at the margin of the specimen. SPECIMEN ??D The epidermis is mildly acanthotic. There is a lichenoid infiltrate with vacuolar changes of basilar keratinocytes and scattered necrotic keratinocytes. This lesion is not present at the sampled margin of the specimen. Electronically signed out by Carrie Rose M.D. 10/25/2015 1:36:02PM [facility] Comment: Performed at: Dermatopathology Laboratory [facility] - Department of Dermatology [address] [place] [address], 5th [place] [address] Phone number: [phone] FAX: [phone] 10/23/2015 10/24/2015 Wilber Patel MD LAB - PATHOLOGY/CYTO LOGY ORDERABLES Performing Organization Address [facility] Co de Phone Number [facility] D[facility]MAT[facility] [address] [facility] [address] 5th Floor Lab [address] [phone] * PATHOLOGY/GENETICS HISTORICAL-ONBASE (04/30/2012) 04/30/2012 Narrative [facility] - 05/03/2012 4:11 PM CDT Historical Provider LAB - CHEMISTRY O RDERABLES Performing Organization Address [facility] de Phone Number [facility] [address] * LAB HISTORICAL RESULTS-ONBASE (04/30/2012) 04/30/2012 Narrative [facility] - 05/03/2012 10:43 AM CDT Historical Provider LAB - CHEMISTRY O RDERABLES Performing Organization Address [facility] de Phone Number [facility] [address] * GROSS + MICRO EXAM (08/02/2001 8:06 AM [employer] ASSIST[employer]ET[employer]) Only the most recent of2 resultswithin the time period is included. Result CASE NUMBER [id number] Comment: ORDERING [...] velvety with multiple small yellowish pinpoint areas. ??Crystal Evaluator sections of the gallbladder are submitted in a single cassette. CUSTOM TAILOR APPRENTICE/bk Microscopic Exam ? Microscopic examination reveals multiple [...] ?I. ??Gallbladder ?A. ??Acute cholecystitis with cholelithiasis. Cork Compounder ? bk Pathologist ?James Yang M.D. Snomed. ?08/03/2001 1358 <2> CPT code ? 79582 MISCELLANEOUS SAMPLES / Unknown 08/02/2001 8:06 AM [employer] ASSIST[employer] 08/02/2001 8:06 AM [employer] ASSISTANT [employer] Historical Provider LAB - PATHOLOGY/C YTOLOGY ORDERABLES
--- OUTSIDE RECORDS SUMMARY | 2024-07-12 08:28 | XMS_ITS | Encounter Summary ---
Author Organization [facility] Address [address] [place] [address] Care Team Providers Care Protection Analyst Name Role Phone Rg Read MD Primary Care Provider [phone] Reason for Visit * Reason Onset Date Comments Arm pain 02/19/2018 Encounter Details Date Type Department Care Team (Late st Contact Info) Description 02/19/2018 Telephone [facility] Internal Medicine - [facility] [address] [facility] [address] [place] [phone] Rg Read MD 141 [facility] [address] [place] [phone] Arm pain Social History Tobacco Use Types Packs/Day Years [...] * Telephone Encounter - Akosua Arce - 02/19/2018 9:40 AM CDT [facility] has lots of medical issues lately with her back. States had to call EMS a few days ago. States thinks she had a reaction to a muscle relaxer. States when medical professional placed tourniquet on her arm, her arm felt pinched. States tourniquet was really tight. States area is tender and hard. Questioned if she is speaking of the insertion site of needle or where tourniquetwas applied. States where tourniquet was applied. Denies redness, warm or swelling. Requesting advice. Informed warm compresses intermittently. Watch for warm, redness, swelling or decreased sensation. Continue to monitor. Call for further questions or problems.. documented in this encounter Plan of Treatment Not on file documented as of this encounter Visit Diagnoses Not on filedocumented in this encounter Care Teams Protection Analyst Relationship Specialty Start Date End Date Rg Read MD [address] [place] [phone] PCP - General 03/12/01 10/29/22 documented as of this encounter
--- OUTSIDE RECORDS SUMMARY | 2024-07-12 08:28 | XMS_ITS | Encounter Summary ---
Author Organization [facility] Address [address] [place] [address] Care Team Providers Care Contract Attorney Name Role Phone Rg Read MD Primary Care Provider [phone] Reason for Visit * Reason Comments Follow Up Annual Wellness Visit (Medicare) Encounter Details Date Type Department Care Team (Latest Contact Info) Description 04/06/2017 2:00 PM CDT Office Visit [facility] Internal Medicine - [facility] [address] [phone] Rg Read MD 141 [facility] [address] [place] [phone] Essential hypertension, benign (Primary Dx); Hx of decompressive lumbar laminectomy; Pure hypercholesterolemia; Primary osteoarthritis involving multiple joints; Major depressive disorder, single episode, moderate Social History Tobacco Use Types Packs/Day Years [...] Sign Reading Time Taken Comments Blood Pressure 120/70 04/06/2017 2:06 PM CDT Pulse 72 04/06/2017 2:06 PM CDT Temperature - - Respiratory Rate 12 04/06/2017 2:06 PM CDT Oxygen Saturation - - Inhaled Oxygen Concentration - - Weight 77.1 kg (170 lb) 04/06/2017 2:06 PM CDT Height 170.2 cm (5' 7 ) 04/06/2017 2:06 PM CDT Body Mass Index 26.63 04/06/2017 2:06 PM CDT documented in this encounter Progress Notes * Akosua Arce - 04/06/2017 2:21 PM CDT Due for mammogram. Last one about 14 months ago. Discussed. * Akosua Arce - 04/06/2017 2:[address] Godoy providing pain medications. Fusion L4, L5 and S1 on January 13 * Rg Read MD - 04/06/2017 2:05 PM CDT CC: Annual well visit and routine office [...] was updated which includes an annual flu shot, mammogram due now. Eye exam was performed. CC: The patient is here to follow up to assess whether the multiple medical problems are under reasonable control and multiple issues. We talked about her decompressive lumbar laminectomy. I have that in the chart and reviewed the correspondence from the surgeon. She said she is still not back to her old self. He told her it would be about 6 months and she is only 3 months in. In terms of hypertension, denies chest pain or pressure, no palpitations, denies any shortness of breath at rest or trouble breathing with activity and no pedal edema. In terms of cholesterol, making some effort on diet in reducing fat, some effort at exercise and aware of the need to lose weight. In terms of the depression, that is doing well. Bowels are okay despite taking narcotics on a daily basis. The surgeon evidently doesn???t believe in NSAIDS after putting instruments in there because he said it retards the fusion process so he won???t let her do that for about another 6- 8 weeks. PFS: Both preceding this visit and during the visit this patient's past medical history, (including diagnosis, medications and allergies) were thoroughly reviewed and [...] patient, family members/relatives and/or concerned parties were rev iewed and incorporated into this patient's chart. ROS: [...] or ulcers, no induration or nodules. Musculoskeletal: Normal gait, sits and stands without difficulty, no clubbing, cyanosis or ischemicchanges peripherally. A: Hypertension: appears to be well controlled. So we will continue the same regimen in an attempt to decrease the morbidity and mortality associated with hypertension related chronic renal failure, cerebrovascular accident, etc. Hypercholesterolemia: based on the most recent blood tests, reasonably well controlled. Continue same diet, exercise and medications in an effort to reduce risk of morbidity and mortality associated with hypercholesterolemia related coronary artery disease. Decompressed laminectomy. I will coordinate care. Degenerative arthritis, stable, continue same regimen. Depression, stable, continue same regimen. She plans to start weaning off the Lyrica. She plans at 6 weeks when the surgeon gives her the go ahead to get back on the NSAIDS and try to wean off of the Vicodin. I strongly encouraged her to do that. Recommended a screening mammogram per ACP guidelines to potentially identify early cancerous lesions and aggressively address them with either further testing or excision, so as to potentially decrease the morbidity and mortality of breast cancer. Will discuss the results with the patient. Encouraged patient to obtain an annual flu shot in an effort to decrease the risk of morbidity/mortality associated with influenza, infections. follow up 6 months. DMB/me documented in this encounter Plan of Treatment Not on file documented as of this encounter Visit Diagnoses Diagnosis Essential hypertension, benign- Primary Hx of decompressive lumbar laminectomy Personal history of surgery to other organs Pure hypercholesterolemia Primary osteoarthritis involving multiple joints Major depressive disorder, single episode, moderate documented in this encounter Care Teams Contract Attorney Relationship Specialty Start Date End Date Rg Read MD 141 [facility] [address] [place] [address] PCP - General 03/12/01 10/29/22 documented as of this encounter
--- OUTSIDE RECORDS SUMMARY | 2024-07-12 08:28 | XMS_ITS | Encounter Summary ---
Author Organization [facility] Address [address] [place] [address] Care Team Providers Care File System Installer Name Role Phone Rg Read MD Primary Care Provider [phone] Reason for Visit * Reason Onset Date Comments Cough 11/15/2018 Depression 11/15/2018 Encounter Details Date Type Department Care Team (Late st Contact Info) Description 11/15/2018 Telephone [facility] Internal Medicine - [facility] [address] [phone] Rg Read MD 141 [facility] [address] [place] [phone] Cough; Depression Social History Tobacco Use Types Packs/Day Years Used Date Smoking Tobacco: Never Smokeless Tobacco: Never Alcohol Use Standard Drinks/Week Comments Yes 0.8 (1 standard drink = 0.6 oz p ure alcohol) Sex and Gender Information Value Date Recorded Sex Assigned at Not on file Gender Identity Not on file Sexual Orientation Not on file documented as of this encounter Miscellaneous Notes * Addendum Note - Akosua Mohamud - 11/15/2018 3:50 PM CDTAddended by: AKOSUA MOHAMUD on: 11/15/2018 03:50 PM Modules accepted: Orders * Telephone Encounter - Akosua Mohamud - 11/15/2018 3:41 PM CDT Patient calling states cough is improved. Has one day left of prednisone. States she has not made appointment for cosmetics supervisor. States at this point she does not need to see specialist. States she is calling to report MD increased antidepressant to 150 bid. Feels like depression is getting worse. States having more anxiety. Denies SI/HI. New orders received. Informed need to add Buspar 10 bid. Patient to call back in 3 weeks with an update or sooner if needed. documented in this encounter Plan of Treatment Not on file documented as of this encounter Visit Diagnoses Not on filedocumented in this encounter Care Teams File System Installer Relationship Specialty Start Date End Date Rg Read MD 141 [facility] [address] [place] [phone] PCP - General 03/12/01 10/29/22 documented as of this encounter
--- OUTSIDE RECORDS SUMMARY | 2024-07-12 08:28 | XMS_ITS | Encounter Summary ---
Author Organization [facility] Address [address] [place] [address] Care Team Providers Care Diving Judge Name Role Phone Rg Read MD Primary Care Provider [phone] Reason for Visit * Reason Comments Medication Refill Encounter Details Date Type Department Care Team (Late st Contact Info) Description 04/10/2018 Refill [facility] Internal Medicine - [address] [address] Rg Read MD [address] [place] [phone] Social History Tobacco Use Types Packs/Day [...] on filedocumented in this encounter Care Teams Diving Judge Relationship Specialty Start Date End Date Rg Read MD [address] [place] [phone] PCP - General 03/12/01 10/29/22 documented as of this encounter
--- OUTSIDE RECORDS SUMMARY | 2024-07-12 08:28 | XMS_ITS | Encounter Summary ---
Author Organization [facility] Address [address] [place] [address] Care Team Providers Care Supervisor [employer] Name Role Phone Rg Read MD Primary Care Provider [phone] Reason for Visit * Reason Comments Follow Up Encounter Details Date Type Department Care Team (Latest Contact Info) Description 10/12/2015 2:20 PM CDT Office Visit [facility] Internal Medicine - [address] [place] [phone] Rg Read MD [address] [place] [address] [place] [phone] Essential hypertension, benign (Primary Dx); Pure hypercholesterolemia; Major depressive disorder, single episode, moderate; Primary osteoarthritis involving multiple joints; Need for pneumococcal vaccination Social History Tobacco Use Types Packs/Day Years [...] Sign Reading Time Taken Comments Blood Pressure 126/70 10/12/2015 2:26 PM CDT Pulse 72 10/12/2015 2:26 PM CDT Temperature - - Respiratory Rate 16 10/12/2015 2:26 PM CDT Oxygen Saturation - - Inhaled Oxygen Concentration - - Weight 77.1 kg (170 lb) 10/12/2015 2:26 PM CDT Height 170.2 cm (5' 7 ) 10/12/2015 2:26 PM CDT Body Mass Index 26.63 10/12/2015 2:26 PM CDT documented in this encounter Progress Notes * Rg Read MD - 10/12/2015 2:23 PM CDT CC: The patient is here to follow up to assess whether the multiple medical problems are under reasonable control and multiple issues. She has had this on again off again cough. She has had a couple of Z packs. It never quite goes away. In terms of hypertension, denies chest pain or pressure, no palpitations, denies any shortness of breath at rest or trouble breathing with activity and no pedal edema. In terms of cholesterol, making some effort on diet in reducing fat, some effort at exercise and aware of the need to lose weight. In terms of the depression, that is doing well. Her life partner was just diagnosed with endometrial cancer and had a hysterectomy and anticipatingradiation so I answered some questions that she had. PFS: Both preceding this visit and during [...] no clubbing, cyanosis or ischemicchanges peripherally. A: Post bronchitis syndrome. Prednisone 10mg 40 down to 0 over 12 days in three day decreasing increments dropping 10mg at a time. Hypertension: appears to be well controlled. So [...] associated with hypercholesterolemia related coronary artery disease. Depression, stable, continue same regimen. She declined blood work. follow up 6 months. DMB/me * Akosua Arce - 10/12/2015 2:20 PM CDT States had labs by cardiology lipid and bmp by dr Iyer 3 weeks ago documented in this encounter Plan of Treatment Not on file documented as of this encounter Visit Diagnoses Diagnosis Essential hypertension, benign- Primary Pure hypercholesterolemia Major depressive disorder, single episode, moderate Primary osteoarthritis involving multiple joints Need for pneumococcal vaccination Need for prophylactic vaccination against streptococcus pneumoniae (pneumococcus) documented in this encounter Care Teams Supervisor [employer] Relationship Specialty Start Date End Date Rg Read MD [address] [phone] PCP - General 03/12/01 10/29/22 documented as of this encounter
--- OUTSIDE RECORDS SUMMARY | 2024-07-12 08:28 | XMS_ITS | Encounter Summary ---
Author Organization [facility] Address [address] [place] [address] Care Team Providers Care Pug Mill Operator Name Role Phone Rg Read MD Primary Care Provider [phone] Reason for Visit * Reason Onset Date Comments Cough 10/25/2018 Encounter Details Date Type Department Care Team (Late st Contact Info) Description 10/25/2018 Telephone [facility] Internal Medicine - [facility] [address] [facility] [address] [place] [phone] Rg Read MD 141 [facility] [address] [place] [phone] Cough Social History Tobacco Use Types Packs/Day Years [...] encounter Miscellaneous Notes * Telephone Encounter - Erasmotaylorhortencia Akosua - 10/25/2018 3:35 PM CDT Patient calling c/o of ongoing cough. Has been tx 3 times since July. States using Mucinex, Delsym and Kimberly. Has been on Prednisone and Zpack. New orders received. Patient informed needs to go for CXR and f/u in office. Patient wanting to go to [facility]. Informed patient she needs toget the phone and fax number so we can send order. Patient to call back with information. Appointment scheduled for Thursday for f/u. Patient calling back with information. Wanting to go to [facility]. Also requesting order for mammogram order. Order faxed to [phone]. documented in this encounter Plan of Treatment Not on file documented as of this encounter Results * XR CHEST PA AND LATERAL 2 VW (10/26/2018) Anatomical Region Laterality Modality Chest Other Rg Read MD DIAGNOSTIC IMAGING O RDERABLES documented in this encounter Visit Diagnoses Diagnosis Cough- Primary Screening for breast cancer Breast screening, unspecified documented in this encounter Care Teams Pug Mill Operator Relationship Specialty Start Date End Date Rg Read MD [address] [place] [phone] PCP - General 03/12/01 10/29/22 documented as of this encounter
--- OUTSIDE RECORDS SUMMARY | 2024-07-12 08:28 | XMS_ITS | Encounter Summary ---
Author Organization [facility] Address [address] [place] [address] Care Team Providers Care Mule Developer Name Role Phone Rg Read MD Primary Care Provider [phone] Encounter Details Date Type Department Care Team (Late st Contact Info) Description 10/26/2018 Orders Only [facility] Internal Medicine - [address] [phone] Rg Read MD [address] [place] [phone] Cough Social History Tobacco Use Types [...] Name Priority Date/Time Associated Diagnosis Comments XR CHEST PA AND LATERAL 2 VW Routine 10/26/2018 Cough documented in this encounter Results * XR CHEST PA AND LATERAL 2 VW (10/26/2018) Anatomical Region Laterality Modality Chest Other Rg Read MD DIAGNOSTIC IMAGING O RDERABLES documented in this encounter Visit Diagnoses Diagnosis Cough documented in this encounter Care Teams Mule Developer Relationship Specialty Start Date End Date Rg Read MD [address] [place] [phone] PCP - General 03/12/01 10/29/22 documented as of this encounter
--- OUTSIDE RECORDS SUMMARY | 2024-07-12 08:28 | XMS_ITS | Encounter Summary ---
Author Organization [facility] Address [address] [place] [address] Care Team Providers Care Campus Administrative Assistant Name Role Phone Rg Read MD Primary Care Provider [phone] Reason for Visit * Reason Comments Medication Refill Encounter Details Date Type Department Care Team (Late st Contact Info) Description 01/29/2016 Refill [facility] Internal Medicine - [address] [phone] Rg Read MD [address] [place] [phone] Social History Tobacco Use Types Packs/Day [...] on filedocumented in this encounter Care Teams Campus Administrative Assistant Relationship Specialty Start Date End Date Rg Read MD [address] [place] [phone] PCP - General 03/12/01 10/29/22 documented as of this encounter
--- OUTSIDE RECORDS SUMMARY | 2024-07-12 08:28 | XMS_ITS | Encounter Summary ---
Author Organization [facility] Address [address] [place] [address] Care Team Providers Care Executive Kitchen Manager Name Role Phone Rg Read MD Primary Care Provider [phone] Reason for Visit * Reason Onset Date Comments Medication Review 02/18/2019 Encounter Details Date Type Department Care Team (Late st Contact Info) Description 02/18/2019 Telephone [facility] Internal Medicine - [facility] [address] [address] Rg Read MD 141 [facility] [address] [place] [phone] Medication Review Social History Tobacco Use [...] * Telephone Encounter - Akosua Arce - 02/18/2019 3:07 PM CDT Patient calling states she went to ENT, Dr Darshana Toth [phone]. 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 Reviewed medications with patient. Effexor was d/t and patient to have started Buspar. Patient states she has not pickup up medication as of yet. Informed will check with MD and call her back. New orders received. Informed patient MD recommending she try the Buspar. Since patient did not think the effexor was helping in the past. documented in this encounter Plan of Treatment Not on file documented as of this encounter Visit Diagnoses Not on filedocumented in this encounter Care Teams Executive Kitchen Manager Relationship Specialty Start Date End Date Rg Read MD [address] [phone] PCP - General 03/12/01 10/29/22 documented as of this encounter
--- OUTSIDE RECORDS SUMMARY | 2024-07-12 08:28 | XMS_ITS | Encounter Summary ---
Author Organization [facility] Address [address] [place] [address] Care Team Providers Care Heel Stiffener Name Role Phone Rg Read MD Primary Care Provider [phone] Reason for Visit * Reason Comments Medication Refill Encounter Details Date Type Department Care Team (Late st Contact Info) Description 09/18/2018 Refill [facility] Internal Medicine - [address] [address] Rg Read MD [address] [place] [phone] Social History Tobacco Use Types Packs/Day [...] on filedocumented in this encounter Care Teams Heel Stiffener Relationship Specialty Start Date End Date Rg Read MD [address] [place] [phone] PCP - General 03/12/01 10/29/22 documented as of this encounter
--- OUTSIDE RECORDS SUMMARY | 2024-07-12 08:28 | XMS_ITS | Encounter Summary ---
Author Organization [facility] Address [address] [place] [address] Care Team Providers Care Cash Room Clerk Name Role Phone Rg Read MD Primary Care Provider [phone] Reason for Visit * Reason Onset Date Comments Upper Respiratory Symptoms 05/11/2017 Encounter Details Date Type Department Care Team (Late st Contact Info) Description 05/11/2017 Telephone [facility] Internal Medicine - [address] [address] Rg Read MD [address] [place] [address] [place] [phone] Upper Respiratory Symptoms Social History Tobacco Use Types Packs/Day Years [...] * Telephone Encounter - Agatha Bolaños - 05/11/2017 4:10 PM CDT Pt c/o yearly sinus infection. She is requesting medication as she has had no relief with otc medication. Order obtained for [employer]. documented in this encounter Plan of Treatment Not on file documented as of this encounter Visit Diagnoses Not on filedocumented in this encounter Care Teams Cash Room Clerk Relationship Specialty Start Date End Date Rg Read MD [address] [place], [place] [address] [phone] PCP - General 03/12/01 10/29/22 documented as of this encounter
--- OUTSIDE RECORDS SUMMARY | 2024-07-12 08:28 | XMS_ITS | Encounter Summary ---
Author Organization [facility] Address [address] [place] [address] Care Team Providers Care Clamp Remover Name Role Phone Rg Read MD Primary Care Provider [phone] Reason for Visit * Reason Comments Follow Up Encounter Details Date Type Department Care Team (Late st Contact Info) Description 03/17/2019 3:20 PM CDT Office Visit [facility] Internal Medicine - [address] [address] Rg Read MD [address] [place] [phone] Essential hypertension, benign (Primary Dx); Major depressive disorder, single episode, moderate; Pure hypercholesterolemia; Facet arthritis of lumbar region Social History Tobacco Use Types Packs/Day Years [...] Sign Reading Time Taken Comments Blood Pressure 132/84 03/17/2019 3:18 PM CDT Pulse 76 03/17/2019 3:18 PM CDT Temperature - - Respiratory Rate 20 03/17/2019 3:18 PM CDT Oxygen Saturation - - Inhaled Oxygen Concentration - - Weight 79.4 kg (175 lb) 03/17/2019 3:18 PM CDT Height 170.2 cm (5' 7 ) 03/17/2019 3:18 PM CDT Body Mass Index 27.41 03/17/2019 3:18 PM CDT documented in this encounter Progress Notes * Rg Read MD - 03/17/2019 5:32 PM CDT CC: The patient is here to follow up to assess whether the multiple medical problems are under reasonable control and multiple issues. Lot of ground to cover here. She brought in a whole sheet of medicines and supplements and diagnoses. Meniere???s disease, she has lost the hearing in the left ear and partial in the right. She has dual hearing aids. They help a little bit with the hearing but not the tinnitus. She has been trying to get qualified for a cochlear implant but so far no luck with that. 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 She is doing what she can but occasionally she needs some pain medication. She would like to try something non-narcotic and we talked through tramadol, potential side effects, etc. In terms of hypertension, denies chest pain or pressure, no palpitations, denies any shortness of breath at rest or trouble breathing with activity and no pedal edema. In terms of cholesterol, making some effort on diet in reducing fat, some effort at exercise and aware of the need to lose weight. The depression is doing a little better. She has not started the Buspar. She is taking tizanidine in the evening and that helps her sleep a little bit. PFS: Both preceding this visit and during [...] related chronic renal failure, cerebrovascular accident, etc. Depression. I am going to add the Buspar in the evening along with Paxil in the morning. Degenerative arthritis lumbar spine. I gave her tramadol. We talked about side effects, constipation, drowsiness. Small potential for addiction but nevertheless it is there. Recommended a screening mammogram per ACP guidelines to potentially identify early cancerous lesions and aggressively address them with either further testing or excision, so as to potentially decrease the morbidity and mortality of breast cancer. Will discuss the results with the patient. Encouraged patient to obtain an annual flu shot in an effort to decrease the risk of morbidity/mortality associated with influenza, infections. Recommended a bone density screening to assess [...] will communicate the results to the patient. follow up 3 months. 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
--- OUTSIDE RECORDS SUMMARY | 2024-07-12 08:28 | XMS_ITS | Encounter Summary ---
Author Organization [facility] Address [address] [place] [address] Care Team Providers Care Yarder Operator Name Role Phone Rg Read MD Primary Care Provider [phone] Reason for Visit * Reason Comments Medication Refill Encounter Details Date Type Department Care Team (Late st Contact Info) Description 03/17/2019 Refill [facility] Internal Medicine - [address] [address] Rg Read MD [address] [place] [phone] Social History Tobacco Use Types Packs/Day [...] on filedocumented in this encounter Care Teams Yarder Operator Relationship Specialty Start Date End Date Rg Read MD [address] [place] [phone] PCP - General 03/12/01 10/29/22 documented as of this encounter
--- OUTSIDE RECORDS SUMMARY | 2024-07-12 08:28 | XMS_ITS | Encounter Summary ---
Author Organization [facility] Address [address] [place] [address] Care Team Providers Care Manager Enterprise Content Management Name Role Phone Rg Read MD Primary Care Provider [phone] Reason for Visit * Reason Onset Date Comments Medication Problem 04/01/2018 Encounter Details Date Type Department Care Team (Late st Contact Info) Description 04/01/2018 Telephone [facility] Internal Medicine - [facility] 141 [facility] [address] [place] [address] Rg Read MD 141 [facility] [address] [place] [phone] Medication Problem Social History Tobacco Use Types Packs/Day Years [...] Notes * Telephone Encounter - Agatha Bolaños Porfirio - 04/01/2018 2:57 PM CDT Pt was advised last week to try her Xanax 0.5 mg at bedtime for sleep problem. States she feels comatose when she wakes up, lasting effects. Second issue, she feels the Venlafaxine 75 mg bid is not really working, would like a different medication. Order obtained, she will decrease the Xanax to 0.25 mg q hs. She will increase Venlafaxine to 150 mg q am and 75 mg q pm. She will call with any further concerns. Med Chart updated. documented in this encounter Plan of Treatment Not on file documented as of this encounter Visit Diagnoses Not on filedocumented in this encounter Care Teams Manager Enterprise Content Management Relationship Specialty Start Date End Date Rg Read MD [address] [phone] PCP - General 03/12/01 10/29/22 documented as of this encounter
--- OUTSIDE RECORDS SUMMARY | 2024-07-12 08:28 | XMS_ITS | Encounter Summary ---
Author Organization [facility] Address [address] [place] [address] Care Team Providers Care Perioperative Tech Name Role Phone Rg Read MD Primary Care Provider [phone] Reason for Visit * Reason Onset Date Comments Results 04/08/2016 Encounter Details Date Type Department Care Team (Late st Contact Info) Description 04/08/2016 Telephone [facility] Internal Medicine [address] [address] gR Read MD [address] [place] [phone] Results Social History Tobacco Use Types Packs/Day Years [...] * Telephone Encounter - Akosua Arce - 04/08/2016 8:43 AM CDT Patient informed labs look good. Reviewed cholesterol numbers. Keep up the good work. * Telephone Encounter - Akosua Arce - 04/08/2016 8:43 AM CDT ----- Message from Rg Read MD sent at 04/08/2016 6:04 AM CDT ----- great documented in this encounter Plan of Treatment Not on file documented as of this encounter Visit Diagnoses Not on filedocumented in this encounter Care Teams Perioperative Tech Relationship Specialty Start Date End Date Rg Read MD [address] [phone] PCP - General 03/12/01 10/29/22 documented as of this encounter
--- OUTSIDE RECORDS SUMMARY | 2024-07-12 08:28 | XMS_ITS | Encounter Summary ---
Author Organization [facility] Address [address] [place] [address] Care Team Providers Care Perl Developer Name Role Phone Rg Read MD Primary Care Provider [phone] Reason for Visit * Reason Onset Date Comments Upper Respiratory Symptoms 05/15/2017 Encounter Details Date Type Department Care Team (Late st Contact Info) Description 05/15/2017 Telephone [facility] Internal Medicine - [facility] 141 [facility] [address] [place] [address] Rg Read MD 141 [facility] [address] [place] [address] Upper Respiratory Symptoms Social History Tobacco [...] * Telephone Encounter - Agatha Bolaños - 05/15/2017 12:22 PM CDT Pt took the last tablet of her Zpak today for URI symptoms, states she still feels awful, lots of sinus drainage, fatigue, etc. States she has had a little diarrhea but she feels this is from the sinus drainage. Order obtained for Prednisone 10 mg taper. documented in this encounter Plan of Treatment Not on file documented as of this encounter Visit Diagnoses Not on filedocumented in this encounter Care Teams Perl Developer Relationship Specialty Start Date End Date Rg Read MD [address] [phone] PCP - General 03/12/01 10/29/22 documented as of this encounter
--- OUTSIDE RECORDS SUMMARY | 2024-07-12 08:28 | XMS_ITS | Encounter Summary ---
Author Organization [facility] Address [address] [place] [address] Care Team Providers Care Capacitor Assembler Name Role Phone Rg Read MD Primary Care Provider [phone] Reason for Visit * Reason Onset Date Comments Fluid Retention 01/19/2017 Encounter Details Date Type Department Care Team (Late st Contact Info) Description 01/19/2017 Telephone [facility] Internal Medicine - [facility] 141 [facility] [address] [place] [phone] Rg Read MD 141 [facility] [address] [place] [phone] Fluid Retention Social History Tobacco Use Types Packs/Day Years [...] * Telephone Encounter - Agatha Bolaños - 01/19/2017 3:15 PM CDT Pt states she was discharged from [facility], had back fusion. States she is retaining fluid, she ws given Lasix #3 tabs on discharge. She is still retaining water. Order obtained, explained to the patient it is not unusual to experience fluid retention after hospitalization. This is from the IV fluids and immobility. Pt instructed to give this more time, it will resolve on its own. documented in this encounter Plan of Treatment Not on file documented as of this encounter Visit Diagnoses Not on filedocumented in this encounter Care Teams Capacitor Assembler Relationship Specialty Start Date End Date Rg Read MD [address] [phone] PCP - General 03/12/01 10/29/22 documented as of this encounter
--- OUTSIDE RECORDS SUMMARY | 2024-07-12 08:28 | XMS_ITS | Encounter Summary ---
Author Organization [facility] Address [address] [place] [address] Care Team Providers Care Charter And Tour Bus Driver Name Role Phone Rg Read MD Primary Care Provider [phone] Reason for Visit * Reason Comments Cough Medication Review bump on head Encounter Details Date Type Department Care Team (Latest Contact Info) Description 01/13/2019 4:00 PM CDT Office Visit [facility] Internal Medicine - [address] [phone] Rg Read MD [address] [place] [address] [place] [phone] Pure hypercholesterolemia (Primary Dx); Major depressive disorder, single episode, moderate; Essential hypertension, benign; Facet arthritis of cervical region; Facet arthritis of lumbar region Social History [...] Sign Reading Time Taken Comments Blood Pressure 136/78 01/13/2019 4:05 PM CDT Pulse 70 01/13/2019 4:05 PM CDT Temperature - - Respiratory Rate 14 01/13/2019 4:05 PM CDT Oxygen Saturation - - Inhaled Oxygen Concentration - - Weight 78 kg (172 lb) 01/13/2019 4:05 PM CDT Height 170.2 cm (5' 7 ) 01/13/2019 4:05 PM CDT Body Mass Index 26.94 01/13/2019 4:05 PM CDT documented in this encounter Progress Notes * Rg Read MD - 01/13/2019 4:07 PM CDT Declines bone density Fall Risk She has had no falls in the past year. Tobacco Intervention She is not a tobacco user. Depression Screen Positive: PHQ-2 score >= 3 or PHQ-9 score >= 9 PHQ-2 Total: 0 (05/04/2018 2:00 PM) PHQ-9 Total: 3 (05/04/2018 2:00 PM) DEPRESSION PLAN OF CARE Her depression screen was normal Blood Pressure BP Readings from Last 3 Encounters: 01/13/19 136/78 10/29/18 130/72 05/04/18 104/68 Normal BMI Range: 18 & older: > or = 18.5 and < 25 Body mass index is 26.94 kg/m??. Abnormal high BMI: Patient counseled on lifestyle modifications including weight loss and daily exercise. CC: The patient is here to follow up to assess whether the multiple medical problems are under reasonable control and multiple issues. A whole host of issues. She still has this cough. She decided not to go to the assistant professor of dietetics but she wanted to know why I wanted to send her. I told her because I was out of ideas as to what is causing this. She thinks it is sinus related. She is taking the Flonase BID. She is on Kimberly but in questioning her she does appreciate the fact that when she went from [facility] to [facility] probably the cough got a little worse. She is not taking the Singulair right now. That is kind of where we are. No fever, chills, night sweats. No sob, SNIDER, etc. She said she went on vacation for a couple of weeks and got out of physical therapy for her hip andback and can really tell how deconditioned she became in just two weeks. She knows she has to work hard to continue that. She has a lump on her head. It is in the left occiput. It doesn???t really bother her. She is just aware of it. She doesn???t really think her antidepressant is working very well and she has decided to try coming off of them. Wanted input on that. In terms of cholesterol, making some effort on diet in reducing fat, some effort at exercise and aware of the need to lose weight. In terms of hypertension, denies chest pain or pressure, no palpitations, denies any shortness of breath at rest or trouble breathing with activity and no pedal edema. Arthritis in the lumbar and cervical spine is about the same. She needs to do therapy all the time for that. PFS: Both preceding this visit and during [...] no clubbing, cyanosis or ischemicchanges peripherally. A: Cough. Likely allergy mediated. We are going to stop the Kimberly and get her on Zyrtec QD for 10days. If not better at the end of that time add back the Singulair for 10 days, if not better she will call me and we will probably add a steroid inhaler. She is agreeable. Depression. She has taken herself down on the Effexor from 2 BID to 2 AM and one PM starting 3-4 days ago. I mapped out every week we will drop one. She will go 2/1 for another few days, then 1 BID for a week, then 1 QAM for a week and stop it. If she finds that she unravels at any point call me. At the end when she weens off of the Effexor call me because we want to stay on the Buspar for now. If this doesn???t work out I will probably suggest that we go to [facility] and see if that helps. She is agreeable. Hypercholesterolemia: based on the most recent blood tests, reasonably well controlled. Continue same diet, exercise and medications in an effort to reduce risk of morbidity and mortality associated with hypercholesterolemia related coronary artery disease. Hypertension: appears to be well controlled. So we will continue the same regimen in an attempt to decrease the morbidity and mortality associated with hypertension related chronic renal failure, cerebrovascular accident, etc. Degenerative arthritis, stable, continue same regimen. Recommended a bone density screening to assess [...] of pathologic bone fractures associated with osteoporosis. Declined by patient. follow up 2 months. DMB/me documented in this encounter Plan of Treatment Not on file documented as of this encounter Visit Diagnoses Diagnosis Pure hypercholesterolemia- Primary Major depressive disorder, single episode, moderate Essential hypertension, benign Facet arthritis of cervical region Cervical spondylosis without myelopathy Facet arthritis of lumbar region Lumbosacral spondylosis without myelopathy documented in this encounter Care Teams Charter And Tour Bus Driver Relationship Specialty Start Date End Date Rg Read MD [address] [place] [phone] PCP - General 03/12/01 10/29/22 documented as of this encounter
--- OUTSIDE RECORDS SUMMARY | 2024-07-12 08:28 | XMS_ITS | Encounter Summary ---
Author Organization [facility] Address [address] [place] [address] Care Team Providers Care Shotweld Operator Name Role Phone Rg Read MD Primary Care Provider [phone] Reason for Visit * Reason Comments Annual Wellness Visit (Medicare) Encounter Details Date Type Department Care Team (Latest Contact Info) Description 05/04/2018 2:00 PM CDT Office Visit [facility] [place] Internal Medicine - [address] [address] Rg Read MD [address] [place] [address] [place] [phone] Essential hypertension, benign (Primary Dx); Major depressive disorder, single episode, moderate; Pure hypercholesterolemia; Hx of decompressive lumbar laminectomy; Facet arthritis of cervical region; Facet arthritis of lumbar region; Facet arthropathy, thoracic; Need for 23-polyvalent pneumococcal polysaccharide vaccine Social History Tobacco Use Types Packs/Day Years [...] Sign Reading Time Taken Comments Blood Pressure 104/68 05/04/2018 2:08 PM CDT Pulse 70 05/04/2018 2:08 PM CDT Temperature - - Respiratory Rate 14 05/04/2018 2:08 PM CDT Oxygen Saturation - - Inhaled Oxygen Concentration - - Weight 76.2 kg (168 lb) 05/04/2018 2:08 PM CDT Height 170.2 cm (5' 7 ) 05/04/2018 2:08 PM CDT Body Mass Index 26.31 05/04/2018 2:08 PM CDT documented in this encounter Progress Notes * Rg Read MD - 05/04/2018 2:27 PM CDT CC: Annual well visit and [...] which includes an annual flu shot, mammogram and colonoscopy due now. Eye exam was performed. CC: The patient is here to follow up to assess whether the multiple medical problems are under reasonable control and multiple issues. She had back surgery back in January and she is recuperating nicely with physical therapy. She just got back from a couple of weeks in [place] and enjoyed that. In terms of hypertension, denies chest pain or pressure, no palpitations, denies any shortness of breath at rest or trouble breathing with activity and no pedal edema. In terms of the depression, that is doing well, still having some difficulty sleeping. She has beengoing back and forth between a full Xanax and half Xanax. I told her there is no reason for that, just take the full Xanax about an hour ahead of time. Hypercholesterolemia: based on the most recent blood tests, reasonably well controlled. Continue same diet, exercise and medications in an effort to reduce risk of morbidity and mortality associated with hypercholesterolemia related coronary artery disease. No change in bowel habits. No constipation, [...] related chronic renal failure, cerebrovascular accident, etc. Depression, stable, continue same regimen. Hypercholesterolemia: based on the most recent blood tests, reasonably well controlled. Continue same diet, exercise and medications in an effort to reduce risk of morbidity and mortality associated with hypercholesterolemia related coronary artery disease. Decompression lumbar laminectomy. I made note of that in the chart. Arthritis of the cervical and lumbar spine, unchanged. Same regimen. Facet arthritis thoracic spine, same regimen. Prevnar 13 given. Encouraged patient to obtain an annual flu shot in an effort to decrease the risk of morbidity/mortality associated with influenza, infections. Shingles vaccine recommended. Recommended a screening mammogram per ACP guidelines to potentially identify early cancerous lesions and aggressively address them with either further testing or excision, so as to potentially decrease the morbidity and mortality of breast cancer. Will discuss the results with the patient. Recommended a bone density screening to assess [...] the results to the patient. follow up 6 months. DMB/me documented in this encounter Plan of Treatment Not on file documented as of this encounter Visit Diagnoses Diagnosis Essential hypertension, benign- Primary Major depressive disorder, single episode, moderate Pure hypercholesterolemia Hx of decompressive lumbar laminectomy Personal history of surgery to other organs Facet arthritis of cervical region Cervical spondylosis without myelopathy Facet arthritis of lumbar region Lumbosacral spondylosis without myelopathy Facet arthropathy, thoracic Thoracic spondylosis without myelopathy Need for 23-polyvalent pneumococcal polysaccharide vaccine documented in this encounter Care Teams Shotweld Operator Relationship Specialty Start Date End Date Rg Read MD [address] [place] [phone] PCP - General 03/12/01 10/29/22 documented as of this encounter
--- OUTSIDE RECORDS SUMMARY | 2024-07-12 08:28 | XMS_ITS | Encounter Summary ---
Author Organization [facility] Address [address] [place] [address] Care Team Providers Care Tip Tester Name Role Phone Rg Read MD Primary Care Provider [phone] Reason for Visit * Reason Onset Date Comments Runny Nose 08/03/2018 Post nasal drip Encounter Details Date Type Department Care Team (Late st Contact Info) Description 08/03/2018 Telephone [facility] Internal Medicine - [facility] 141 [facility] [address] [place] [phone] Rg Read MD 141 [facility] [address] [place] [address] Runny Nose (Post nasal drip) Social History Tobacco Use Types Packs/Day Years [...] * Telephone Encounter - Agatha Bolaños - 08/03/2018 3:24 PM CST Pt c/o cruddy post nasal drip especially at night, dripping down the back of her throat causing her to cough. She is asking what she can take? Order obtained for Flonase nasal spray one spray each nostril twice daily on a regular basis. ASS ANALYST documented in this encounter Plan of Treatment Not on file documented as of this encounter Visit Diagnoses Not on filedocumented in this encounter Care Teams Tip Tester Relationship Specialty Start Date End Date Rg Read MD [address] [phone] PCP - General 03/12/01 10/29/22 documented as of this encounter
--- OUTSIDE RECORDS SUMMARY | 2024-07-12 08:28 | XMS_ITS | Encounter Summary ---
Author Organization [facility] Address [address] [place] [address] Care Team Providers Care Channel Opener Outsoles Name Role Phone Rg Read MD Primary Care Provider [phone] Reason for Visit * Reason Onset Date Comments Cough 10/04/2018 Encounter Details Date Type Department Care Team (Late st Contact Info) Description 10/04/2018 Telephone [facility] Internal Medicine - [facility] [address] [facility] [address] [place] [phone] Rg Read MD [address] [facility] [address] [place] [phone] Cough Social History Tobacco Use Types [...] * Telephone Encounter - Akosua Arce - 10/04/2018 10:58 AM CDT Patient calling c/o ongoing cough. States finished Zpack today. States deep in chest. Denies fever.New orders received. Informed rx will be sent to pharm. Call for further problems or if sxs persist. documented in this encounter Plan of Treatment Not on file documented as of this encounter Visit Diagnoses Not on filedocumented in this encounter Care Teams Channel Opener Outsoles Relationship Specialty Start Date End Date Rg Read MD [address] [facility] [address] [place] [address] PCP - General 03/12/01 10/29/22 documented as of this encounter
--- OUTSIDE RECORDS SUMMARY | 2024-07-12 08:28 | XMS_ITS | Encounter Summary ---
Author Organization [facility] Address [address] [place] [address] Care Team Providers Care Escrow Assistant Name Role Phone Rg Read MD Primary Care Provider [phone] Reason for Visit * Reason Comments Follow Up uri, doing better, j ust wanted to follow up Encounter Details Date Type Department Care Team (Late st Contact Info) Description 06/02/2017 3:40 PM CUFFER Office Visit [facility] Internal Medicine - [facility] [address] [address] Rg Read MD [address] [place] [phone] Essential hypertension, benign (Primary Dx); Pure hypercholesterolemia; URTI (acute upper respiratory infection); Major depressive disorder, single episode, moderate Social [...] Sign Reading Time Taken Comments Blood Pressure 126/80 06/02/2017 3:52 PM CUFFER Pulse 80 06/02/2017 3:52 PM CUFFER Temperature - - Respiratory Rate 16 06/02/2017 3:52 PM CUFFER Oxygen Saturation - - Inhaled Oxygen Concentration - - Weight 76.2 kg (168 lb) 06/02/2017 3:52 PM CUFFER Height 170.2 cm (5' 7 ) 06/02/2017 3:52 PM CUFFER Body Mass Index 26.31 06/02/2017 3:52 PM CUFFER documented in this encounter Progress Notes * Rg Read MD - 06/02/2017 5:15 PM CST CC: The patient is here to follow up to assess whether the multiple medical problems are under reasonable control and multiple issues. She had a URI a couple of weeks ago and we called out a Z pack. That didn???t do much for her so wegave her prednisone and she is getting better but a couple of things have happened. She noticed if she would move around too quickly she got a little lightheaded and dizzy. That is improving but she wondered what set that off. Also there has been a lot of stress around the house and this whole infec tion has brought her down. She wonders if she should change her antidepressant. In terms of cholesterol, making some effort on diet in reducing fat, some effort at exercise and aware of the need to lose weight. PFS: Both preceding this visit and during [...] no clubbing, cyanosis or ischemicchanges peripherally. A: URI. That appears to be resolving. I reassured her that I didn???t think the dizziness was from the prednisone, I think it is more from the infection. Hypercholesterolemia: based on the most recent blood [...] related chronic renal failure, cerebrovascular accident, etc. I think she should stay on her depression medicine. She is tolerating it. We will go up to 125mg a day and call me in a month. We may go up to 150. Recommended a screening mammogram per ACP guidelines to potentially identify early cancerous lesions and aggressively address them with either further testing or excision, so as to potentially decrease the morbidity and mortality of breast cancer. Will discuss the results with the patient. follow up 3 months. DMB/me ER documented in this encounter Plan of Treatment Not on file documented as of this encounter Visit Diagnoses Diagnosis Essential hypertension, benign- Primary Pure hypercholesterolemia URTI (acute upper respiratory infection) Acute upper respiratory infections of unspecified site Major depressive disorder, single episode, moderate documented in this encounter Care Teams Escrow Assistant Relationship Specialty Start Date End Date Rg Read MD [address] [place] [phone] PCP - General 03/12/01 10/29/22 documented as of this encounter
--- OUTSIDE RECORDS SUMMARY | 2024-07-12 08:28 | XMS_ITS | Encounter Summary ---
Author Organization [facility] Address [address] [place] [address] Care Team Providers Care Medical Office Secretary Name Role Phone Rg Read MD Primary Care Provider [phone] Reason for Visit * Reason Comments Medication Refill Encounter Details Date Type Department Care Team (Late st Contact Info) Description 07/15/2016 Refill [facility] Internal Medicine - [address] [address] Rg Read MD [address] [place] [address] Social History Tobacco Use Types Packs/Day [...] on filedocumented in this encounter Care Teams Medical Office Secretary Relationship Specialty Start Date End Date Rg Read MD [address] [place] [phone] PCP - General 03/12/01 10/29/22 documented as of this encounter
--- OUTSIDE RECORDS SUMMARY | 2024-07-12 08:28 | XMS_ITS | Encounter Summary ---
Author Organization [facility] Address [address] [place] [address] Care Team Providers Care Blast Furnace Operator Name Role Phone Rg Read MD Primary Care Provider [phone] Reason for Visit * Reason Onset Date Comments Results 10/28/2017 Encounter Details Date Type Department Care Team (Late st Contact Info) Description 10/28/2017 Telephone [facility] Internal Medicine - [facility] [address] [facility] [address] [place] [phone] Rg Read MD 141 [facility] [address] [place] [phone] Results Social History Tobacco Use Types [...] * Telephone Encounter - Agatha Bolaños - 10/28/2017 9:42 AM CDT Pt notified, results given. She will add K+ to her diet daily, she already know food sources to use. Discussed Cholesterol, she is currently taking Pravastatin 10 mg, but states her diet has been awful. She would like to try a different statin as she has been on the Pravastatin forever. She agrees to begin Lipitor 20 mg qhs, will work on diet. * Telephone Encounter - Agatha Bolaños - 10/28/2017 9:42 AM CDT ----- Message from Rg Read MD sent at 10/28/2017 8:41 AM CDT ----- More K+ in diet Did she stop the statin? If so, she needs one: lipitor 20 qhs documented in this encounter Plan of Treatment Not on file documented as of this encounter Visit Diagnoses Not on filedocumented in this encounter Care Teams Blast Furnace Operator Relationship Specialty Start Date End Date Rg Read MD [address] [place] [phone] PCP - General 03/12/01 10/29/22 documented as of this encounter
--- OUTSIDE RECORDS SUMMARY | 2024-07-12 08:28 | XMS_ITS | Encounter Summary ---
Author Organization [facility] Address [address] [place] [address] Care Team Providers Care Host Coordinator Name Role Phone Rg Read MD Primary Care Provider [phone] Encounter Details Date Type Department Care Team (Late st Contact Info) Description 02/17/2019 Orders Only [facility] Internal Medicine [address] [phone] Rg Read MD [address] [phone] Social History Tobacco Use Types Packs/Day [...] on filedocumented in this encounter Care Teams Host Coordinator Relationship Specialty Start Date End Date Rg Read MD [address] [phone] PCP - General 03/12/01 10/29/22 documented as of this encounter
--- OUTSIDE RECORDS SUMMARY | 2024-07-12 08:28 | XMS_ITS | Encounter Summary ---
Author Organization [facility] Address [address] [place] [address] Care Team Providers Care Machine Straw Hat Presser Name Role Phone Rg Read MD Primary Care Provider [phone] Reason for Visit * Reason Onset Date Comments Depression 12/10/2017 Encounter Details Date Type Department Care Team (Late st Contact Info) Description 12/10/2017 Telephone [facility] Internal Medicine - [address] [place] [address] Rg Read MD [address] [place] [address] [place] [phone] Depression Social History Tobacco Use Types Packs/Day [...] * Telephone Encounter - Akosua Arce - 12/10/2017 4:16 PM CDT Patient calling states sertraline is not working. Requesting medication change. No suicidal or homicidal ideations. New orders received. Informed d/c sertraline. New antidepressant sent to pharm. F/uin 1 month. Appointment scheduled. Call for problems in the mean time if needed. documented in this encounter Plan of Treatment Not on file documented as of this encounter Visit Diagnoses Not on filedocumented in this encounter Care Teams Machine Straw Hat Presser Relationship Specialty Start Date End Date Rg Read MD 141 [facility] [address] [place] [address] PCP - General 03/12/01 10/29/22 documented as of this encounter
--- OUTSIDE RECORDS SUMMARY | 2024-07-12 08:28 | XMS_ITS | Encounter Summary ---
Author Organization [facility] Address [address] [place] [address] Care Team Providers Care Statement Clerk Name Role Phone Rg Read MD Primary Care Provider [phone] Reason for Visit * Reason Onset Date Comments Sleep Problem 03/18/2018 Encounter Details Date Type Department Care Team (Late st Contact Info) Description 03/18/2018 Telephone [facility] Internal Medicine - [facility] 141 [facility] [address] [place] [phone] Rg Read MD [address] [place] [address] [place] [phone] Sleep Problem Social History Tobacco Use Types Packs/Day [...] encounter Miscellaneous Notes * Telephone Encounter - Raysa Aviles - 03/18/2018 3:31 PM CDT Patient c/o being very restless at night. Not in pain, she is still taking 2-3 hydrocodone through out the day following surgery. Per Dr. Read try taking 1 tab Xanax 45min-1 hour before bedtime. Patient informed, call with any further problems or questions. documented in this encounter Plan of Treatment Not on file documented as of this encounter Visit Diagnoses Not on filedocumented in this encounter Care Teams Statement Clerk Relationship Specialty Start Date End Date Rg Read MD [address] [address] PCP - General 03/12/01 10/29/22 documented as of this encounter
--- OUTSIDE RECORDS SUMMARY | 2024-07-12 08:28 | XMS_ITS | Encounter Summary ---
Author Organization [facility] Address [address] [place] [address] Care Team Providers Care Felt Pad Cutter Name Role Phone Rg Read MD Primary Care Provider [phone] Reason for Visit * Reason Onset Date Comments Upper Respiratory Symptoms 09/30/2018 Encounter Details Date Type Department Care Team (Late st Contact Info) Description 09/30/2018 Telephone [facility] Internal Medicine - [facility] 141 [facility] [address] [place] [address] Rg Read MD 141 [facility] [address] [place] [address] Upper Respiratory Symptoms Social History [...] * Telephone Encounter - Agatha Bolaños - 09/30/2018 1:42 PM CST Pt is vacationing in [place], c/o URI symptoms, sore throat, cough and her ears are itchy. She is requesting medication. Order obtained for Zpak. LE END TRIMMER documented in this encounter Plan of Treatment Not on file documented as of this encounter Visit Diagnoses Not on filedocumented in this encounter Care Teams Felt Pad Cutter Relationship Specialty Start Date End Date Rg Read MD 141 [facility] [address] [place] [address] PCP - General 03/12/01 10/29/22 documented as of this encounter
--- OUTSIDE RECORDS SUMMARY | 2024-07-12 08:28 | XMS_ITS | Encounter Summary ---
Author Organization [facility] Address [address] [place] [address] Care Team Providers Care Grip Wrapper Name Role Phone Rg Read MD Primary Care Provider [phone] Reason for Visit * Reason Onset Date Comments Cough 11/29/2015 Encounter Details Date Type Department Care Team (Late st Contact Info) Description 11/29/2015 Telephone [facility] Internal Medicine - [facility] 141 [facility] [address] [place] [phone] Rg Read MD 141 [facility] [address] [place] [phone] Cough Social History Tobacco Use Types [...] * Telephone Encounter - Akosua Arce - 11/29/2015 3:12 PM CDT Patient calling c/o cough on and off x May of last year. [facility] has received abx a few times and prednisone once. [facility] was cough free for 2-3 weeks. No c/o returning cough, mainly at hs. UsingAllegra D and Flonase without relief. New orders received. Informed need to obtain CXR. Patient requesting to go to [facility]. Order faxed to [phone]. documented in this encounter Plan of Treatment Not on file documented as of this encounter Visit Diagnoses Diagnosis Cough- Primary documented in this encounter Care Teams Grip Wrapper Relationship Specialty Start Date End Date Rg Read MD [address] [address] PCP - General 03/12/01 10/29/22 documented as of this encounter
--- OUTSIDE RECORDS SUMMARY | 2024-07-12 08:28 | XMS_ITS | Encounter Summary ---
Author Organization [facility] Address [address] [place] [address] Care Team Providers Care Ophthalmic Medical Technician Name Role Phone Rg Read MD Primary Care Provider [phone] Reason for Visit * Reason Comments Follow Up Encounter Details Date Type Department Care Team (Latest Contact Info) Description 01/08/2018 3:20 PM CDT Office Visit [facility] Internal Medicine - [address] [place] [phone] Rg Read MD [address] [place] [address] [place] [phone] Essential hypertension, benign (Primary Dx); Major depressive disorder, single episode, moderate; Pure hypercholesterolemia Social History Tobacco Use Types Packs/Day Years [...] Sign Reading Time Taken Comments Blood Pressure 138/72 01/08/2018 3:28 PM CDT Pulse 80 01/08/2018 3:28 PM CDT Temperature - - Respiratory Rate 14 01/08/2018 3:28 PM CDT Oxygen Saturation - - Inhaled Oxygen Concentration - - Weight 76.2 kg (168 lb) 01/08/2018 3:28 PM CDT Height 170.2 cm (5' 7 ) 01/08/2018 3:28 PM CDT Body Mass Index 26.31 01/08/2018 3:28 PM CDT documented in this encounter Progress Notes * Rg Read MD - 01/08/2018 3:49 PM CDT CC: The patient is here to follow up to assess whether the multiple medical problems are under reasonable control and multiple issues. She called a couple of weeks ago. Didn???t like the sertraline. We moved her over to Effexor. She is not sure it is helping. She went for pre-qual for back surgery. The blood work all looks pretty good. Also she had her dress cap maker clear her from that standpoint. In terms of hypertension, denies chest pain [...] disease. Depression, stable, continue same regimen. She is going to call me in a couple of weeks after the surgery and let me know how she is doing. Wecan bump it up a little bit. Recommended a screening mammogram per ACP guidelines [...] osteoporosis. Will discuss results with the patient. DMB/me * Fátima Lozano RN - 01/08/2018 3:30 PM CDT Reminded about mammogram and bone density documented in this encounter Plan of Treatment Not on file documented as of this encounter Visit Diagnoses Diagnosis Essential hypertension, benign- Primary Major depressive disorder, single episode, moderate Pure hypercholesterolemia documented in this encounter Care Teams Ophthalmic Medical Technician Relationship Specialty Start Date End Date Rg Read MD [address] [place] [phone] PCP - General 03/12/01 10/29/22 documented as of this encounter
--- OUTSIDE RECORDS SUMMARY | 2024-07-12 08:28 | XMS_ITS | Encounter Summary ---
Author Organization [facility] Address [address] [place] [address] Care Team Providers Care Transportation Supervisor Name Role Phone Rg Read MD Primary Care Provider [phone] Reason for Visit * Reason Comments Medication Refill Encounter Details Date Type Department Care Team (Late st Contact Info) Description 08/24/2018 Refill [facility] Internal Medicine - [address] [address] Rg Read MD [address] [place] [address] Social History Tobacco Use Types Packs/Day [...] on filedocumented in this encounter Care Teams Transportation Supervisor Relationship Specialty Start Date End Date Rg Read MD [address] [place] [address] PCP - General 03/12/01 10/29/22 documented as of this encounter
--- OUTSIDE RECORDS SUMMARY | 2024-07-12 08:28 | XMS_ITS | Encounter Summary ---
Author Organization [facility] Address [address] [place] [address] Care Team Providers Care Chain Person Name Role Phone Rg Read MD Primary Care Provider [phone] Reason for Visit * Reason Comments Medication Refill Encounter Details Date Type Department Care Team (Late st Contact Info) Description 09/01/2017 Refill [facility] Internal Medicine - [address] [phone] Rg Read MD [address] [place] [phone] Social History Tobacco Use Types Packs/Day [...] on filedocumented in this encounter Care Teams Chain Person Relationship Specialty Start Date End Date Rg Read MD [address] [place] [phone] PCP - General 03/12/01 10/29/22 documented as of this encounter
--- OUTSIDE RECORDS SUMMARY | 2024-07-12 08:28 | XMS_ITS | Encounter Summary ---
Author Organization [facility] Address [address] [place] [address] Care Team Providers Care Technical Professional Name Role Phone Rg Read MD Primary Care Provider [phone] Reason for Visit * Reason Comments Follow Up Encounter Details Date Type Department Care Team (Latest Contact Info) Description 10/06/2016 2:00 PM CDT Office Visit [facility] Internal Medicine - [address] [place] [phone] Rg Read MD [address] [place] [address] [place] [phone] Essential hypertension, benign (Primary Dx); Pure hypercholesterolemia; Major depressive disorder, single episode, moderate; Non-seasonal allergic rhinitis due to pollen; Primary osteoarthritis involving multiple joints Social History Tobacco Use Types Packs/Day Years [...] Sign Reading Time Taken Comments Blood Pressure 138/82 10/06/2016 2:13 PM CDT Pulse 76 10/06/2016 2:13 PM CDT Temperature - - Respiratory Rate 12 10/06/2016 2:13 PM CDT Oxygen Saturation - - Inhaled Oxygen Concentration - - Weight 76 kg (167 lb 8 oz) 10/06/2016 2:13 PM CD T Height 170.2 cm (5' 7 ) 10/06/2016 2:13 PM CDT Body Mass Index 26.23 10/06/2016 2:13 PM CDT documented in this encounter Progress Notes * Rg Read MD - 10/06/2016 2:25 PM CDT CC: The patient is here to follow up to assess whether the multiple medical problems are under reasonable control and multiple issues. First new issue she is having a back problem with radiation down her right leg. It has been going on for quite a while. She has tried NSAIDS, she is doing physical therapy and she is seeing a anchor tacker who is doing epidural injections, all of which have been rather fruitless. She brought in an MRI and she has a pretty dramatic anteriolithiasis. L4-5, 7mm and L5-S1 4mm. It sounds like she is experiencing intermittent orthostasis when she stands up during the daytime she gets a little lightheadedness/dizziness. It hasn???t kept her from doing anything and hasn???t caused any fall. In terms of hypertension, denies chest pain or pressure, no palpitations, denies any shortness of breath at rest or trouble breathing with activity and no pedal edema. In terms of cholesterol, making some effort on diet in reducing fat, some effort at exercise and aware of the need to lose weight. In terms of the depression, that is doing well. PFS: Both preceding this visit and during [...] or ulcers, no induration or nodules. Musculoskeletal: as above. A: I got out the back model and demonstrated to her what is going on. I suggested we consult a neurosurgeon. I will coordinate care. Orthostatic hypotension. I suggested that she move the Cardia to HS and see if that stops it. If not call me and I???ll drop the Cardia to 120 a day. Hypertension: appears to be well controlled. So [...] artery disease. Depression, stable, continue same regimen. Recommended a screening mammogram per ACP guidelines to potentially identify early cancerous lesions and aggressively address them with either further testing or excision, so as to potentially decrease the morbidity and mortality of breast cancer. Will discuss the results with the patient. follow up 6 months otherwise. DMB/me * Akosua Arce - 10/06/2016 2:13 PM CDT Discussed and encouraged mammogram. documented in this encounter Plan of Treatment Not on file documented as of this encounter Visit Diagnoses Diagnosis Essential hypertension, benign- Primary Pure hypercholesterolemia Major depressive disorder, single episode, moderate Non-seasonal allergic rhinitis due to pollen Primary osteoarthritis involving multiple joints documented in this encounter Care Teams Technical Professional Relationship Specialty Start Date End Date Rg Read MD [address] [place] [phone] PCP - General 03/12/01 10/29/22 documented as of this encounter
--- OUTSIDE RECORDS SUMMARY | 2024-07-12 08:28 | XMS_ITS | Encounter Summary ---
Author Organization [facility] Address [address] [place] [address] Care Team Providers Care Distributor Sales Manager Name Role Phone Rg Read MD Primary Care Provider [phone] Reason for Visit * Reason Comments Medication Refill Encounter Details Date Type Department Care Team (Late st Contact Info) Description 10/25/2018 Refill [facility] Internal Medicine - [address] [phone] Rg Read MD [address] [place] [phone] Social History Tobacco Use Types Packs/Day [...] on filedocumented in this encounter Care Teams Distributor Sales Manager Relationship Specialty Start Date End Date Rg Read MD [address] [place] [phone] PCP - General 03/12/01 10/29/22 documented as of this encounter
--- OUTSIDE RECORDS SUMMARY | 2024-07-12 08:28 | XMS_ITS | Encounter Summary ---
Author Organization [facility] Address [address] [place] [address] Care Team Providers Care Teacher Of The Sight Impaired Name Role Phone Rg Read MD Primary Care Provider Reason for Visit * Reason Onset Date Comments Results 11/01/2018 Encounter Details Date Type Department Care Team (Late st Contact Info) Description 11/01/2018 Telephone [facility] Internal Medicine - [facility] [address] [facility] [address] [place] [phone] Rg Read MD [address] [facility] [address] [place] [phone] Results Social History Tobacco Use Types [...] * Telephone Encounter - Agatha Bolaños - 11/01/2018 10:26 AM CDT LM labs fine, call for questions. * Telephone Encounter - Agatha Bolaños - 11/01/2018 10:26 AM CDT ----- Message from Rg Read MD sent at 10/31/2018 7:36 AM CDT ----- great documented in this encounter Plan of Treatment Not on file documented as of this encounter Visit Diagnoses Not on filedocumented in this encounter Care Teams Teacher Of The Sight Impaired Relationship Specialty Start Date End Date Rg Read MD [address] [facility] [address] [place] [phone] PCP - General 03/12/01 10/29/22 documented as of this encounter
--- OUTSIDE RECORDS SUMMARY | 2024-07-12 08:28 | XMS_ITS | Encounter Summary ---
Author Organization [facility] Address [address] [place] [address] Care Team Providers Care Animal Nurse Name Role Phone Rg Read MD Primary Care Provider [phone] Reason for Visit * Reason Comments Cough Encounter Details Date Type Department Care Team (Latest Contact Info) Description 10/29/2018 2:40 PM CDT Office Visit [facility] Internal Medicine - [address] [place] [phone] Rg Read MD [address] [place] [address] [place] [phone] Pure hypercholesterolemia (Primary Dx); Major depressive disorder, single episode, moderate; Facet arthritis of lumbar region; Facet arthritis of cervical region; Essential hypertension, benign; Cough Social History Tobacco Use Types Packs/Day [...] Sign Reading Time Taken Comments Blood Pressure 130/72 10/29/2018 2:37 PM CDT Pulse 74 10/29/2018 2:37 PM CDT Temperature - - Respiratory Rate 12 10/29/2018 2:37 PM CDT Oxygen Saturation - - Inhaled Oxygen Concentration - - Weight 78 kg (172 lb) 10/29/2018 2:37 PM CDT Height 170.2 cm (5' 7 ) 10/29/2018 2:37 PM CDT Body Mass Index 26.94 10/29/2018 2:37 PM CDT documented in this encounter Progress Notes * Rg Read MD - 10/29/2018 2:58 PM CDT CC: The patient is here to follow up to assess whether the multiple medical problems are under reasonable control and multiple issues. She has had this cough since last fall. It got much worse in the winter when she visited [place] and it just persists. She can tell it is sinus drainage and she has tried a number of things for her allergies. She has tried Kimberly D and it is so hard for her to get Kimberly D. She occasionally takesFlonase. We got a CXR. I reviewed that with her and told her it was fine. No orthopnea or PND or pedal edema. No fever, chills, night sweats. No sob or SNIDER. Her depression isn???t doing well at all. Eating excessively, not sleeping well, etc. PFS: Both preceding this visit and during [...] in no distress. Vital signs noted. ENT: Sinuses are boggy and hyperemic. TM's not injected, no bulging, canals clear. [...] no clubbing, cyanosis or ischemicchanges peripherally. A: I still think this is allergic rhinitis triggering the cough. I told her to go up on the Flonaseto a squirt in each nostril BID. Plain Zyrtec QD. Singulair 10 QD and call me in 2 weeks. Depression, not well controlled. I am moving her medicine up to 150 BID and call me in 2 weeks. Hypertension: appears to be well controlled. So [...] associated with hypercholesterolemia related coronary artery disease. Degenerative arthritis of cervical and lumbar spine, same regimen. Recommended a screening mammogram per [...] will communicate the results to the patient. Will obtain a blood sugar to assess whether the patient might have diabetes or glucose intolerance which might require further testing or intervention to potentially decrease the morbidity and mortality associated with diabetes related retinopathy, neuropathy, renal failure, peripheral vascular dise ase/amputation, coronary artery disease, and/or cerebrovascular accident. I will communicate the results to the patient. Will obtain a renal profile to assess any adverse impact from underlying medical conditions and/or medications and review for any needed intervention, medication change, or further testing. Will communicate the results to the patient. I got electrolytes to ensure there isn't a perturbation that could cause cardiac arrhythmias or other untoward events. Will obtain lipid panel to assess any adverse impact from underlying medical conditions and/or medications. Will communicate results to the patient. follow up usual time. DMB/me * Agatha Bolaños - 10/29/2018 2:43 PM CDT Fall Risk ASSESSMENT She has had no falls in the past year. Encouraged BD and Colonoscopy. Pt is scheduled for Mammogram in next couple weeks. documented in this encounter Plan of Treatment Not on file documented as of this encounter Procedures Procedure Name Priority Date/Time Associated Diagnosis Comments LIPID PANEL Routine 10/29/2018 2:41 PM CDT Pure hypercholesterolemia BASIC METABOLIC PANEL Routine 10/29/2018 2:41 PM CDT Essential hypertension, benign documented in this encounter Results * (ABNORMAL) LIPID PANEL (10/29/2018 2:41 PM CDT) CHOLESTEROL 159 <200 mg/dL 10/29/2018 9:53 PM CDT [facility] TRIGLYCERIDE 130 <150 mg/dL 10/29/2018 9:53 PM CDT [facility] - [facility] HDL 77(H) 40 - 59 mg/dL 10/29/2018 9:53 PM CDT [facility] LDL CALCULATED 56 <100 mg/dL 10/29/2018 9:53 PM CDT [facility] [employer] [facility] NON-HDL CHOLESTEROL 82 <130 mg/dL 10/29/2018 9:53 PM T [facility] [employer] [facility] Blood Venipuncture / Unknown 10/29/2018 2:41 PM CDT 10/29/2018 8:02 PM CDT [facility] - 10/29/2018 9:53 PM CDT TOTAL CHOLESTEROL ??mg/dL ??Desirable <200 ??Borderline high 200-239 ??High >=240 TRIGLYCERIDES ??mg/dL ??Normal <150 ??Borderline high 150-199 ??High 200-499 ??Very high >=500 HDL CHOLESTEROL ??mg/dL ??Low <40 ??Normal 40-59 ??Desirable >=60 NON HDL CHOLESTEROL mg/dL ??Optimal <130 ??Near Optimal 130-159 ??Borderline High 160-189 ??Very High >=190 Calculated LDL mg/dL ??Optimal <100 ??Near Optimal 100-129 ??Borderline High 130-159 ??High 160-189 ??Very High >=190 ATPIII Guidelines Reference Ranges for Lipid Panels (NCEP/AMA) Rg Read MD CHEMISTRY ORDERABLES [facility] - [facility] CLIA# [id number] [address] [facility] [place] [address] * BASIC METABOLIC PANEL (10/29/2018 2:41 PM CDT) SODIUM 139 136 - 145 mmol/L 10/29/2018 9:53 PM CDT [facility] [employer] [facility] - [facility] POTASSIUM 3.9 3.5 - 5.0 mmol/L 10/29/2018 9:53 PM CDT [facility] [employer] [facility] - [facility] CHLORIDE 99 98 - 107 mmol/L 10/29/2018 9:53 PM CDT [facility] [employer] [facility] - [facility] CO2 29 22 - 29 mmol/L 10/29/2018 9:53 PM CDT [facility] [employer] [facility] - [facility] CALCIUM 9.8 8.6 - 10.2 mg/dL 10/29/2018 9:53 PM CDT [facility] [employer] [facility] - [facility] BUN 19 8 - 23 mg/dL 10/29/2018 9:53 PM CDT [facility] [employer] [facility] - . [facility] CREATININE 0.88 0.51 - 0.95 mg/dL 10/29/2018 9:53 PM CDT [facility] [employer] [facility] - [facility] Comment: The GFR result is not clinically significant on patients <18 or >70 years of age. GLUCOSE 98 74 - 99 mg/dL 10/29/2018 9:53 PM CDT [facility] [employer] [facility] - [facility] GFR >60 mL/min/1.7 3 sq meter 10/29/2018 9:53 PM CDT [facility] [employer] [facility] - [facility] Comment: eGFR has not been validated for use in the elderly (> 70 years of age), women, patients with serious co-morbid conditions, or persons with extremes of body size or muscle mass and should also be interpreted with caution in patients with acute kidney failure, dialysis dependent patients, patients reporting exceptional dietary intake (e.g. vegetarian diet, high protein diets, creatine supplementation), and patients with severe liver disease. Based on National Kidney Disease Education Program If patient is , please refer to the GFR result. GFR, >60 mL/min/1.7 3 sq meter 10/29/2018 9:53 PM CDT [facility] ANION GAP 11 8 - 16 mmol/L 10/29/2018 9:53 PM [facility] Blood Venipuncture / Unknown 10/29/2018 2:41 PM CDT 10/29/2018 8:02 PM CDT Rg Read MD CHEMISTRY ORDERABLES [id number] [address] [place] [address] documented in this encounter Visit Diagnoses Diagnosis Pure hypercholesterolemia- Primary Major depressive disorder, single episode, moderate Facet arthritis of lumbar region Lumbosacral spondylosis without myelopathy Facet arthritis of cervical region Cervical spondylosis without myelopathy Essential hypertension, benign Cough documented in this encounter Care Teams Animal Nurse Relationship Specialty Start Date End Date Rg Read MD [address] [place] [address] [address] [place] [address] PCP - General 03/12/01 10/29/22 documented as of this encounter
--- OUTSIDE RECORDS SUMMARY | 2024-07-12 08:28 | XMS_ITS | Encounter Summary ---
Author Organization [facility] Address [address] [place] [address] Care Team Providers Care Research Methods Instructor Name Role Phone Rg Read MD Primary Care Provider [phone] Reason for Referral * Eval and Treat (Routine) - Closed Specialty Diagnoses / Procedures Referred By Contac t Referred To Contact Pulmonology Diagnoses Cough Rg Read MD [address] [place] [phone] Pepe Arevalo MD [address] [place] [address] Referral ID Status Reason Start Date Expiration Date V isits Requested Visits Authorized [id number] Closed CRS To Schedule (STL) 11/04/2018 11/04/2019 1 1 Scheduling Instructions Please schedule with first available MD Reason for Visit * Reason Onset Date Comments Cough 11/04/2018 Encounter Details Date Type Department Care Team (Late st Contact Info) Description 11/04/2018 Telephone [facility] Internal Medicine - [facility] [address] [facility] [address] [place] [phone] Rg Read MD [address] [phone] Cough Social History Tobacco Use Types [...] * Telephone Encounter - Akosua Arce - 11/04/2018 4:18 PM CDT Patient calling states cough is getting worse. Now it is during the day and night. States using Flonase, Zyrtec and Singulair. Getting coughing spells making her gag and choke. New orders received. Informed MD will order another round of prednisone and send to pulmonology. Call for problems. documented in this encounter Plan of Treatment Scheduled Referrals Name Type Priority Associated Diagnoses Orde r Schedule AMB REFERRAL TO PULMONARY Outpatient Referral Routine Cough Ordered: 11/04/2018 documented as of this encounter Visit Diagnoses Diagnosis Cough- Primary documented in this encounter Care Teams Research Methods Instructor Relationship Specialty Start Date End Date Rg Read MD [address] [place] [address] [place] [phone] PCP - General 03/12/01 10/29/22 documented as of this encounter
--- OUTSIDE RECORDS SUMMARY | 2024-07-12 08:28 | XMS_ITS | Encounter Summary ---
Author Organization [facility] Address [address] [place] [address] Care Team Providers Care Business Area Director Name Role Phone Rg Read MD Primary Care Provider [phone] Reason for Visit * Reason Comments Medication Refill Encounter Details Date Type Department Care Team (Late st Contact Info) Description 03/22/2017 Refill [facility] Internal Medicine - [address] [phone] Rg Read MD [address] [place] [phone] Social History Tobacco Use Types Packs/Day [...] on filedocumented in this encounter Care Teams Business Area Director Relationship Specialty Start Date End Date Rg Read MD [address] [place] [phone] PCP - General 03/12/01 10/29/22 documented as of this encounter
--- OUTSIDE RECORDS SUMMARY | 2024-07-12 08:28 | XMS_ITS | Encounter Summary ---
Author Organization [facility] Address [address] [place] [address] Care Team Providers Care Lorry Weigher Name Role Phone Rg Read MD Primary Care Provider [phone] Reason for Visit * Reason Comments Annual Wellness Visit (Medicare) Encounter Details Date Type Department Care Team (Latest Contact Info) Description 04/07/2016 3:20 PM CDT Office Visit [facility] Internal Medicine - [facility] [address] [facility] [address] [place] [phone] Rg Read MD 141 [facility] [address] [place] [phone] Essential hypertension, benign (Primary Dx); Pure hypercholesterolemia Social History Tobacco Use Types [...] Sign Reading Time Taken Comments Blood Pressure 128/68 04/07/2016 3:40 PM CDT Pulse 74 04/07/2016 3:40 PM CDT Temperature - - Respiratory Rate 14 04/07/2016 3:40 PM CDT Oxygen Saturation - - Inhaled Oxygen Concentration - - Weight 80.7 kg (178 lb) 04/07/2016 3:40 PM CDT Height 170.2 cm (5' 7 ) 04/07/2016 3:40 PM CDT Body Mass Index 27.88 04/07/2016 3:40 PM CDT documented in this encounter Progress Notes * Fátima Lozano RN - 04/07/2016 3:54 PM CDT reminded about flu * Rg Read MD - 04/07/2016 3:43 PM CDT CC: Annual well visit and [...] includes an annual flu shot, mammogram due 08/23/16 and colonoscopy due 02/24/18. Eye exam was performed. CC: The patient is here to follow up to assess whether the multiple medical problems are under reasonable control and multiple issues. Hips are doing alright. She has been having a little bursitis. They tried a shot, that didn???t help a heck of a lot. Now she is seeing a back specialist who has her doing manual physical therapy. She is not sure yet whether that is helpful yet. Still having some difficulty sleeping from time to time. We talked about Tylenol PM, melatonin. In terms of hypertension, denies chest pain or pressure, no palpitations, denies any shortness of breath at rest or trouble breathing with activity and no pedal edema. In terms of cholesterol, making some effort on diet in reducing fat, some effort at exercise and aware of the need to lose weight. No change in bowel habits. No constipation, [...] related chronic renal failure, cerebrovascular accident, etc. Will obtain a blood sugar to assess [...] cause cardiac arrhythmias or other untoward events. She is weaning herself off of the dyazide. Hypercholesterolemia: based on the most recent blood tests, reasonably well controlled. Continue same diet, exercise and medications in an effort to reduce risk of morbidity and mortality associated with hypercholesterolemia related coronary artery disease. Will obtain lipid panel to assess any adverse impact from underlying medical conditions and/or medications. Will communicate results to the patient. Mild anxiety. Continue Zoloft and PRN Xanax. Encouraged patient to obtain an annual flu shot in an effort to decrease the risk of morbidity/mortality associated with influenza, infections. follow up 5 months. DMB/me documented in this encounter Plan of Treatment Not on file documented as of this encounter Procedures Procedure Name Priority Date/Time Associated Diagnosis Comments LIPID PANEL Routine 04/07/2016 3:45 PM CDT Pure hypercholesterolemia BASIC METABOLIC PANEL Routine 04/07/2016 3:45 PM CDT Essential hypertension, benign documented in this encounter Results * (ABNORMAL) LIPID PANEL (04/07/2016 3:45 PM CDT) [facility] CHOLESTEROL 174 <200 mg/dL 04/07/2016 7:30 PM CDT [facility] TRIGLYCERIDE 121 <150 mg/dL 04/07/2016 7:30 PM CDT [facility] HDL 68(H) 40 - 59 mg/dL 04/07/2016 7:30 PM CDT [facility] LDL CALCULATED 82 <100 mg/dL 04/07/2016 7:30 PM T [facility] NON-HDL CHOLESTEROL 106 <130 mg/dL 04/07/2016 7:30 PM T [facility] Blood Collection / Unknown 04/07/2016 3:45 PM CDT 04/07/2016 7:01 PM CDT [facility] - [facility] - 04/07/2016 7:30 PM CDT TOTAL CHOLESTEROL ??mg/dL ??Desirable <200 [...] Panels (NCEP/AMA) Rg Read MD CHEMISTRY ORDERABLES [facility]# [id number] 5 SBalaji [facility] MAE[place] [id number] * BASIC METABOLIC PANEL (04/07/2016 3:45 PM CDT) Pathologist [facility] SODIUM 136 136 - 145 mmol/L 04/07/2016 7:30 PM CDT [facility] POTASSIUM 3.7 3.5 - 5.0 mmol/L 04/07/2016 7:30 PM CDT [facility] CHLORIDE 98 98 - 107 mmol/L 04/07/2016 7:30 PM CDT [facility] CO2 24 22 - 29 mmol/L 04/07/2016 7:30 PM CDT [facility] CALCIUM 9.3 8.6 - 10.2 mg/dL 04/07/2016 7:30 PM CDT [facility] BUN 14 8 - 23 mg/dL 04/07/2016 7:30 PM CDT [facility] - [facility] CREATININE 0.89 0.51 - 0.95 mg/dL 04/07/2016 7:30 PM CDT [facility] - . [facility] GLUCOSE 87 74 - 99 mg/dL 04/07/2016 7:30 PM CDT [facility] GFR >60 >=60 mL/min/1.7 3 sq meter 04/07/2016 7:30 PM CDT [facility] Comment: eGFR has not been validated for [...] refer to the GFR result. GFR, >60 >=60 mL/min/1.7 3 sq meter 04/07/2016 7:30 PM CDT [facility] ANION GAP 14 8 - 16 mmol/L 04/07/2016 7:30 PM CDT [facility] Blood Collection / Unknown 04/07/2016 3:45 PM CDT 04/07/2016 7:01 PM CDT Rg Read MD CHEMISTRY ORDERABLES [facility] CLIA# [id number] [address] [place] [address] documented in this encounter Visit Diagnoses Diagnosis Essential hypertension, benign- Primary Pure hypercholesterolemia documented in this encounter Care Teams Lorry Weigher Relationship Specialty Start Date End Date Rg Read MD [address] [facility] [address] [place] [phone] PCP - General 03/12/01 10/29/22 documented as of this encounter
--- OUTSIDE RECORDS SUMMARY | 2024-07-12 08:29 | XMS_ITS | Encounter Summary ---
Author Organization [facility] Address [address] [place] [address] Care Team Providers Care Business Office Associate Name Role Phone Rg Read MD Primary Care Provider [phone] Reason for Visit * Reason Onset Date Comments Sleep Problem 01/05/2015 Encounter Details Date Type Department Care Team (Late st Contact Info) Description 01/05/2015 Telephone [facility] Internal Medicine - [facility] [address] [facility] [address] [place] [phone] Rg Read MD [address] [place] [address] [place] [phone] Sleep Problem Social History Tobacco Use [...] * Telephone Encounter - Agatha Bolaños - 01/05/2015 2:31 PM CDT Pt states she has not been sleeping for a few weeks, she is up pacing the floor until 3:30 - 4 am. She has tried Benadryl, Melatonin, and Xanax without relief. Looking for advice. Order obtained, patient will try 2 Xanax at HS. Call if symptoms persist. Med Chart updated. documented in this encounter Plan of Treatment Not on file documented as of this encounter Visit Diagnoses Not on filedocumented in this encounter Care Teams Business Office Associate Relationship Specialty Start Date End Date Rg Read MD [address] [phone] PCP - General 03/12/01 10/29/22 documented as of this encounter
--- OUTSIDE RECORDS SUMMARY | 2024-07-12 08:29 | XMS_ITS | Encounter Summary ---
Author Organization [facility] Address [address] [place] [address] Care Team Providers Care Steam Service Inspector Name Role Phone Rg Read MD Primary Care Provider [phone] Reason for Visit * Reason Onset Date Comments Results 08/23/2015 Encounter Details Date Type Department Care Team (Late st Contact Info) Description 08/23/2015 Telephone [facility] Internal Medicine - [facility] [address] [facility] [address] [place] [address] Rg Read MD 141 [facility] [address] [place] [address] Results Social History Tobacco Use Types [...] * Telephone Encounter - Agatha Bolaños - 08/23/2015 11:38 AM CST LM Mammogram and BD are fine. Call if questions. ONALIZED LIVING ASSISTANT * Telephone Encounter - Agatha Bolaños - 08/23/2015 11:38 AM CST ----- Message from Rg Read MD sent at 08/23/2015 8:22 AM PERSONALIZED LIVING ASSISTANT ----- all good ONALIZED LIVING ASSISTANT documented in this encounter Plan of Treatment Not on file documented as of this encounter Visit Diagnoses Not on filedocumented in this encounter Care Teams Steam Service Inspector Relationship Specialty Start Date End Date Rg Read MD [address] [facility] [address] [place] [address] PCP - General 03/12/01 10/29/22 documented as of this encounter
--- OUTSIDE RECORDS SUMMARY | 2024-07-12 08:29 | XMS_ITS | Encounter Summary ---
Author Organization [facility] Address [address] [place] [address] Care Team Providers Care C4 Planner Name Role Phone Rg Read MD Primary Care Provider [phone] Encounter Details Date Type Department Care Team (Late st Contact Info) Description 08/23/2015 Orders Only [facility] Internal Medicine - [facility] [address] [address] Rg Read MD [address] [address] Social History Tobacco Use Types [...] Procedure Name Priority Date/Time Associated Diagnosis Comments MAMMO SCREENING BILAT Routine 08/23/2015 XR DEXA BONE DENSITY 2 SITES Routine 08/23/2015 documented in this encounter Results * XR DEXA BONE DENSITY 2 SITES (08/23/2015) Anatomical Region Laterality Modality Other Rg Read MD DIAGNOSTIC IMAGING O RDERABLES * MAMMO SCREENING BILAT (08/23/2015) Anatomical Region Laterality Modality Breast Bilateral Other Rg Read MD MAMMO ORDERABLES documented in this encounter Visit Diagnoses Not on filedocumented in this encounter Care Teams C4 Planner Relationship Specialty Start Date End Date Rg Read MD [address] [place] [phone] PCP - General 03/12/01 10/29/22 documented as of this encounter
--- OUTSIDE RECORDS SUMMARY | 2024-07-12 08:29 | XMS_ITS | Encounter Summary ---
Author Organization [facility] Address [address] [place] [address] Care Team Providers Care Cash Clerk Name Role Phone Rg Read MD Primary Care Provider [phone] Reason for Visit * Reason Onset Date Comments Upper Respiratory Symptoms 08/21/2015 Encounter Details Date Type Department Care Team (Late st Contact Info) Description 08/21/2015 Telephone [facility] Internal Medicine - [address] [address] Rg Read MD [address] [place] [phone] Upper Respiratory Symptoms Social History Tobacco [...] filedocumented in this encounter Care Teams Cash Clerk Relationship Specialty Start Date End Date Rg Read MD [address] [place] [address] PCP - General 03/12/01 10/29/22 documented as of this encounter
--- OUTSIDE RECORDS SUMMARY | 2024-07-12 08:29 | XMS_ITS | Encounter Summary ---
Author Organization [facility] Address [address] [place] [address] Care Team Providers Care Real Estate Sales Supervisor Name Role Phone Rg Read MD Primary Care Provider [phone] Reason for Visit * Reason Onset Date Comments General 04/13/2015 general adult ma mmogram Encounter Details Date Type Department Care Team (Late st Contact Info) Description 04/13/2015 Patient Outreach [facility] Internal Medicine - [address] [phone] Rg Read MD [address] [place] [phone] General (general adult mammogram) Social History Tobacco Use Types Packs/Day Years [...] * Telephone Encounter - Akosua Arce - 04/13/2015 3:52 PM CDT Discussed and encouraged mammogram. documented in this encounter Plan of Treatment Not on file documented as of this encounter Visit Diagnoses Not on filedocumented in this encounter Care Teams Real Estate Sales Supervisor Relationship Specialty Start Date End Date Rg Read MD [address] [place] [phone] PCP - General 03/12/01 10/29/22 documented as of this encounter
--- OUTSIDE RECORDS SUMMARY | 2024-07-12 08:29 | XMS_ITS | Encounter Summary ---
Author Organization [facility] Address [address] [place] [address] Care Team Providers Care Municipal Court Magistrate Name Role Phone Rg Read MD Primary Care Provider [phone] Reason for Visit * Reason Comments Follow Up Encounter Details Date Type Department Care Team (Late st Contact Info) Description 04/13/2015 2:20 PM CDT Office Visit [facility] Internal Medicine - [address] [phone] Rg Read MD [address] [place] [address] [place] [phone] Essential hypertension, benign (Primary Dx); Pure hypercholesterolemia; Major depressive disorder, single episode, moderate; S/P hip replacement Social History Tobacco Use Types Packs/Day Years [...] Sign Reading Time Taken Comments Blood Pressure 124/72 04/13/2015 2:34 PM CDT Pulse 74 04/13/2015 2:34 PM CDT Temperature - - Respiratory Rate 12 04/13/2015 2:34 PM CDT Oxygen Saturation - - Inhaled Oxygen Concentration - - Weight 75.5 kg (166 lb 8 oz) 04/13/2015 2:34 PM CDT Height 170.2 cm (5' 7 ) 04/13/2015 2:34 PM CDT Body Mass Index 26.08 04/13/2015 2:34 PM CDT documented in this encounter Progress Notes * Rg Read MD - 04/13/2015 2:48 PM CDT CC: The patient is here to follow up to assess whether the multiple medical problems are under reasonable control and multiple issues. She is very pleased her hips are doing well. She has had both hips replaced and she is moving around quite a bit. She shared with me that sometimes when she gets out of a chair after she has been sitting for a while, she gets a little dizzy, particularly if she pops up quickly. It doesn???t happen all the time. In terms of hypertension, denies chest pain or pressure, no palpitations, denies any shortness of breath at rest or trouble breathing with activity and no pedal edema. In terms of cholesterol, making some effort on diet in reducing fat, some effort at exercise and aware of the need to lose weight. Her depression is doing reasonably well. PFS: Both preceding this visit and [...] clubbing, cyanosis or ischemicchanges peripherally. A: I think she has orthostatic hypotension. I explained that process to her. I told her to try for two weeks to move her arms and legs before standing but if you forget to do that call me in 2 weeks and I will decrease your diltiazem from 240 to 180. She is agreeable. Hypertension: appears to be well controlled. So [...] osteoporosis. Will discuss results with the patient. Pneumovax declined. Shingles vaccine recommended. Encouraged patient to obtain an annual flu shot in an effort to decrease the risk of morbidity/mortality associated with influenza, infections. follow up 6 months. DMB/me * Agatha Bolaños - 04/13/2015 2:37 PM CDT Encouraged Flu Shot, Pneumonia Vaccine, Shingles Vaccine, Mammogram, and Bone Density. documented in this encounter Plan of Treatment Not on file documented as of this encounter Visit Diagnoses Diagnosis Essential hypertension, benign- Primary Pure hypercholesterolemia Major depressive disorder, single episode, moderate S/P hip replacement Hip joint replacement by other means documented in this encounter Care Teams Municipal Court Magistrate Relationship Specialty Start Date End Date Rg Read MD [address] [phone] PCP - General 03/12/01 10/29/22 documented as of this encounter
--- OUTSIDE RECORDS SUMMARY | 2024-07-12 08:30 | XMS_ITS | Encounter Summary ---
Author Organization [facility] Address [address] [place] [address] Care Team Providers Care It Trainer Name Role Phone Rg Read MD Primary Care Provider [phone] Reason for Visit * Reason Onset Date Comments Medication Refill 11/06/2014 Encounter Details Date Type Department Care Team (Late st Contact Info) Description 11/06/2014 Refill [facility] Internal Medicine [address] [place] [phone] Rg Read MD [address] [address] Social History Tobacco Use Types [...] on filedocumented in this encounter Care Teams It Trainer Relationship Specialty Start Date End Date Rg Read MD [address] [phone] PCP - General 03/12/01 10/29/22 documented as of this encounter
--- OUTSIDE RECORDS SUMMARY | 2024-07-12 08:30 | XMS_ITS | Encounter Summary ---
Author Organization [facility] Address [address] [place] [address] Care Team Providers Care Naval Aircrewman Helicopter Name Role Phone Rg Read MD Primary Care Provider [phone] Reason for Visit * Reason Onset Date Comments Medication Refill 11/07/2014 Encounter Details Date Type Department Care Team (Late st Contact Info) Description 11/07/2014 Refill [facility] Internal Medicine - [address] [address] Rg Read MD [address] [place] [phone] Social History Tobacco Use Types Packs/Day [...] * Telephone Encounter - Agatha Bolaños - 11/07/2014 12:46 PM CDT Pt requesting refill of Sertraline, patient states she is now taking 2 tabs daily. documented in this encounter Plan of Treatment Not on file documented as of this encounter Visit Diagnoses Not on filedocumented in this encounter Care Teams Naval Aircrewman Helicopter Relationship Specialty Start Date End Date Rg Read MD [address] [place] [phone] PCP - General 03/12/01 10/29/22 documented as of this encounter
--- OUTSIDE RECORDS SUMMARY | 2024-07-12 08:30 | XMS_ITS | Encounter Summary ---
Author Organization [facility] Address [address] [place] [address] Care Team Providers Care Research Associate Quality Control Qc Name Role Phone Rg Read MD Primary Care Provider [phone] Reason for Visit * Reason Onset Date Comments Medication Question 09/07/2014 Encounter Details Date Type Department Care Team (Late st Contact Info) Description 09/07/2014 Telephone [facility] Internal Medicine - [facility] [address] [facility] [address] [place] [address] Rg Read MD [address] [place] [address] [place] [phone] Medication Question Social History Tobacco Use Types Packs/Day Years [...] * Telephone Encounter - Agatha Bolaños - 09/07/2014 1:32 PM CST Pt states she has been taking Zoloft Since March 2014. States this is really not working, she would like a different anti depressant. Order obtained, patient will increase the Zoloft to 100mg daily and follow up in the office in 1 month. Appt was scheduled. CONVEYOR DRIER documented in this encounter Plan of Treatment Not on file documented as of this encounter Visit Diagnoses Not on filedocumented in this encounter Care Teams Research Associate Quality Control Qc Relationship Specialty Start Date End Date Rg Read MD [address] [phone] PCP - General 03/12/01 10/29/22 documented as of this encounter
--- OUTSIDE RECORDS SUMMARY | 2024-07-12 08:30 | XMS_ITS | Encounter Summary ---
Author Organization [facility] Address [address] [place] [address] Care Team Providers Care Freelance Court Reporter Name Role Phone Rg Read MD Primary Care Provider [phone] Reason for Visit * Reason Onset Date Comments Medication Review 11/09/2014 Encounter Details Date Type Department Care Team (Late st Contact Info) Description 11/09/2014 Telephone [facility] Internal Medicine - [facility] 141 [facility] [address] [place] [address] Rg Read MD [address] [place] [address] [place] [phone] Medication Review Social History Tobacco Use [...] * Telephone Encounter - Agatha Bolaños - 11/09/2014 1:57 PM CDT Pt saw Ortho yesterday, she needs a right hip replacement. Ortho will only prescribe pain med post op, told her she must get pain med if needed before surgery from PCP. Order obtained for Hydrocodone. documented in this encounter Plan of Treatment Not on file documented as of this encounter Visit Diagnoses Not on filedocumented in this encounter Care Teams Freelance Court Reporter Relationship Specialty Start Date End Date Rg Read MD 141 [facility] [address] [place] [address] PCP - General 03/12/01 10/29/22 documented as of this encounter
--- OUTSIDE RECORDS SUMMARY | 2024-07-12 08:30 | XMS_ITS | Encounter Summary ---
Author Organization [facility] Address [address] [place] [address] Care Team Providers Care Music Typographer Name Role Phone Rg Read MD Primary Care Provider [phone] Encounter Details Date Type Department Care Team (Late st Contact Info) Description 11/14/2014 Orders Only [facility] Internal Medicine - [facility] [address] [address] Social History Tobacco Use Types [...] on filedocumented in this encounter Care Teams Music Typographer Relationship Specialty Start Date End Date Rg Raed MD [address] [place] [phone] PCP - General 03/12/01 10/29/22 documented as of this encounter
--- OUTSIDE RECORDS SUMMARY | 2024-07-12 08:30 | XMS_ITS | Encounter Summary ---
Author Organization [facility] Address [address] [place] [address] Care Team Providers Care Patient Assessment Coordinator Name Role Phone Rg Read MD Primary Care Provider [phone] Reason for Visit * Reason Onset Date Comments Medication Refill 11/09/2014 Encounter Details Date Type Department Care Team (Late st Contact Info) Description 11/09/2014 Refill [facility] Internal Medicine - [address] [address] Rg Read MD [address] [place] [phone] Social History Tobacco Use Types Packs/Day [...] * Telephone Encounter - Raysa Aviles - 11/09/2014 3:24 PM CDT Patient states on average she take 6 tabs a day, requesting #180. Ok this time per Dr. Read. documented in this encounter Plan of Treatment Not on file documented as of this encounter Visit Diagnoses Not on filedocumented in this encounter Care Teams Patient Assessment Coordinator Relationship Specialty Start Date End Date Rg Read MD [address] [place] [phone] PCP - General 03/12/01 10/29/22 documented as of this encounter
--- OUTSIDE RECORDS SUMMARY | 2024-07-12 08:30 | XMS_ITS | Encounter Summary ---
Author Organization [facility] Address [address] [place] [address] Care Team Providers Care Public Relations Name Role Phone Rg Read MD Primary Care Provider [phone] Reason for Visit * Reason Comments Medication Refill Encounter Details Date Type Department Care Team (Late st Contact Info) Description 09/13/2014 Refill [facility] Internal Medicine - [address] [phone] Rg Read MD [address] [place] [phone] Social History Tobacco Use Types Packs/Day [...] on filedocumented in this encounter Care Teams Public Relations Relationship Specialty Start Date End Date Rg Read MD [address] [place] [phone] PCP - General 03/12/01 10/29/22 documented as of this encounter
--- OUTSIDE RECORDS SUMMARY | 2024-07-12 08:30 | XMS_ITS | Encounter Summary ---
Author Organization [facility] Address [address] [place] [address] Care Team Providers Care Shaker Out Name Role Phone Rg Read MD Primary Care Provider [phone] Reason for Visit * Reason Onset Date Comments Results 11/14/2014 Encounter Details Date Type Department Care Team (Late st Contact Info) Description 11/14/2014 Telephone [facility] [place] Internal Medicine - [facility] [address] [facility] [address] [place] [phone] Rg Read MD 141 [facility] [address] [place] [phone] Results Social History Tobacco Use Types [...] * Telephone Encounter - Agatha Bolaños - 11/14/2014 4:40 PM CDT Notified patient we received her preop labs from [facility], Potassium level low at 3.1. Order obtainedfor K+ 10 meq bid, patient will repeat K+ level next week. Pt will find a [facility] near her house and call with fax number. Pt's surgery has now been moved to November 24, 2014. documented in this encounter Plan of Treatment Not on file documented as of this encounter Visit Diagnoses Diagnosis Hypokalemia- Primary Hypopotassemia documented in this encounter Care Teams Shaker Out Relationship Specialty Start Date End Date Rg Read MD [address] [place] [phone] PCP - General 03/12/01 10/29/22 documented as of this encounter
--- OUTSIDE RECORDS SUMMARY | 2024-07-12 08:30 | XMS_ITS | Encounter Summary ---
Author Organization [facility] Address [address] [place] [address] Care Team Providers Care Electric Motor Rebuilder Name Role Phone Rg Read MD Primary Care Provider [phone] Reason for Visit * Reason Onset Date Comments Medication Refill 11/06/2014 Encounter Details Date Type Department Care Team (Late st Contact Info) Description 11/06/2014 Refill [facility] Internal Medicine - [address] [address] Rg Read MD [address] [place] [phone] Social History Tobacco Use Types Packs/Day [...] * Telephone Encounter - Raysa Aviles - 11/06/2014 3:36 PM CDT Flexeril refilled, ok per Dr. Read. documented in this encounter Plan of Treatment Not on file documented as of this encounter Visit Diagnoses Not on filedocumented in this encounter Care Teams Electric Motor Rebuilder Relationship Specialty Start Date End Date Rg Read MD [address] [place] [phone] PCP - General 03/12/01 10/29/22 documented as of this encounter
--- OUTSIDE RECORDS SUMMARY | 2024-07-12 08:30 | XMS_ITS | Encounter Summary ---
Author Organization [facility] Address [address] [place] [address] Care Team Providers Care Racetrack Steward Name Role Phone Rg Read MD Primary Care Provider [phone] Reason for Visit * Reason Comments Medication Refill Encounter Details Date Type Department Care Team (Late st Contact Info) Description 11/02/2014 Refill [facility] Internal Medicine - [address] [address] Rg Read MD [address] [place] [phone] Social History Tobacco Use Types Packs/Day [...] on filedocumented in this encounter Care Teams Racetrack Steward Relationship Specialty Start Date End Date Rg Read MD [address] [place] [phone] PCP - General 03/12/01 10/29/22 documented as of this encounter
--- OUTSIDE RECORDS SUMMARY | 2024-07-12 08:30 | XMS_ITS | Encounter Summary ---
Author Organization [facility] Address [address] [place] [address] Care Team Providers Care Transportation Program Director Name Role Phone Rg Read MD Primary Care Provider [phone] Reason for Visit * Reason Comments Follow Up Encounter Details Date Type Department Care Team (Late st Contact Info) Description 10/19/2014 3:20 PM CDT Office Visit [facility] Internal Medicine - [address] [place] [phone] Rg Read MD [address] [place] [address] [place] [phone] S/P hip replacement (Primary Dx); Pure hypercholesterolemia; Osteoarth NOS-unspec Social History Tobacco Use Types Packs/Day Years [...] Sign Reading Time Taken Comments Blood Pressure 132/76 10/19/2014 6:55 AM CDT Pulse 80 10/19/2014 6:55 AM CDT Temperature - - Respiratory Rate 12 10/19/2014 6:55 AM CDT Oxygen Saturation - - Inhaled Oxygen Concentration - - Weight 76.2 kg (168 lb) 10/19/2014 6:55 AM CDT Height 170.2 cm (5' 7 ) 10/19/2014 6:55 AM CDT Body Mass Index 26.31 10/19/2014 6:55 AM CDT documented in this encounter Progress Notes * Rg Read MD - 10/19/2014 3:53 PM CDT CC: Annual well visit and [...] includes an annual flu shot, mammogram due now and colonoscopy due 02/24/2018. Eye exam was performed. CC: The patient is here to follow up to assess whether the multiple medical problems are under reasonable control and multiple issues. She had her left hip replaced in June and is doing well. Somewhere along the line her right hipand legs are bothering her. It is more of a radicular type of pain. She is still seeing the orthopedic doctor who gave her cortisone shots in the hip which didn???t help too much and now he has her on tapering prednisone but she is only about three days in and it is not helping a heck of a lot. There was talk about the possibility that this is more of a back problem than hip problem and that is being sorted out. 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 That would go along with her symptoms. I told her when she follows up with Dr. Rock, her orthopedic doctor, she should share that with him and I suspect the next step will be an MRI. In terms of cholesterol, making some effort [...] induration or nodules. Musculoskeletal: as above. A: Hypercholesterolemia: based on the most recent blood tests, reasonably well controlled. Continuesame diet, exercise and medications in an effort to reduce risk of morbidity and mortality associated with hypercholesterolemia related coronary artery disease. Degenerative arthritis, stable, continue same regimen. Depression, stable, continue same regimen. Recommended a screening mammogram per ACP guidelines to potentially identify early cancerous lesions and aggressively address them with either further testing or excision, so as to potentially decrease the morbidity and mortality of breast cancer. Will discuss the results with the patient. follow up 6 months. DMB/me * Agatha Bolaños - 10/19/2014 3:41 PM CDT Eye Examination: OU 20/25 OS 20/25 OD 20/25 Pt has Advance Directive scanned into chart. documented in this encounter Plan of Treatment Not on file documented as of this encounter Visit Diagnoses Diagnosis S/P hip replacement- Primary Hip joint replacement by other means Pure hypercholesterolemia Osteoarth NOS-unspec Osteoarthrosis, unspecified whether generalized or localized, unspecified site documented in this encounter Care Teams Transportation Program Director Relationship Specialty Start Date End Date Rg Read MD [address] [phone] PCP - General 03/12/01 10/29/22 documented as of this encounter
--- OUTSIDE RECORDS SUMMARY | 2024-07-12 08:30 | XMS_ITS | Encounter Summary ---
Author Organization [facility] Address [address] [place] [address] Care Team Providers Care Maintenance Aide Name Role Phone Rg Read MD Primary Care Provider [phone] Reason for Visit * Reason Onset Date Comments General 10/19/2014 general adult ma mmogram Encounter Details Date Type Department Care Team (Late st Contact Info) Description 10/19/2014 Patient Outreach [facility] Internal Medicine - [address] [phone] Rg Read MD [address] [place] [phone] General (general adult mammogram) Social History [...] * Telephone Encounter - Akosua Arce - 10/19/2014 4:47 PM CDT Patient here for an appointment. Discussed and encouraged mammogram. documented in this encounter Plan of Treatment Not on file documented as of this encounter Visit Diagnoses Not on filedocumented in this encounter Care Teams Maintenance Aide Relationship Specialty Start Date End Date Rg Read MD [address] [place] [phone] PCP - General 03/12/01 10/29/22 documented as of this encounter
--- OUTSIDE RECORDS SUMMARY | 2024-07-12 08:30 | XMS_ITS | Encounter Summary ---
Author Organization [facility] Address [address] [place] [address] Care Team Providers Care Bellhop Captain Name Role Phone Rg Read MD Primary Care Provider [phone] Encounter Details Date Type Department Care Team (Late st Contact Info) Description 06/27/2014 Orders Only [facility] Internal Medicine - [address] [phone] Rg Read MD [address] [place] [phone] Social History Tobacco Use Types Packs/Day [...] Procedure Name Priority Date/Time Associated Diagnosis Comments EKG 12-LEAD Routine 06/27/2014 documented in this encounter Results * EKG 12-LEAD (06/27/2014) Rg Read MD [facility] documented in this encounter Visit Diagnoses Not on filedocumented in this encounter Care Teams Bellhop Captain Relationship Specialty Start Date End Date Rg Read MD [address] [place] [phone] PCP - General 03/12/01 10/29/22 documented as of this encounter
--- OUTSIDE RECORDS SUMMARY | 2024-07-12 08:30 | XMS_ITS | Encounter Summary ---
Author Organization [facility] Address [address] [place] [address] Care Team Providers Care Air Bag Builder Name Role Phone Rg Read MD Primary Care Provider [phone] Reason for Visit * Reason Comments Labs Only Encounter Details Date Type Department Care Team (Latest Contact Info) Description 11/21/2014 3:00 PM CDT Clinical Support [facility] Internal Medicine - [address] [place] [address] Nurse Staci Hypokalemia (Primary Dx) Social History Tobacco Use Types Packs/Day Years Used Date Smoking Tobacco: Never Smokeless Tobacco: Never Alcohol Use Standard Drinks/Week Comments Yes 0.8 (1 standard drink = 0.6 oz p ure alcohol) Sex and Gender Information Value Date Recorded Sex Assigned at Not on file Gender Identity Not on file Sexual Orientation Not on file documented as of this encounter Progress Notes * Akosua Arce - 11/21/2014 3:13 PM CDT Blood drawn. documented in this encounter Plan of Treatment Not on file documented as of this encounter Procedures Procedure Name Priority Date/Time Associated Diagnosis Comments POTASSIUM LEVEL Routine 11/21/2014 3:26 PM CDT Hypokalemia documented in this encounter Results * POTASSIUM LEVEL (11/21/2014 3:26 PM CDT) POTASSIUM 4.0 3.5 - 5.0 mmol/L 11/21/2014 9:08 PM CDT [facility] Blood Collection / Unknown 11/21/2014 3:26 PM CDT 11/21/2014 7:49 PM CDT Rg Read MD CHEMISTRY ORDERABLES [facility] CLIA# [id number] [address] [place] [id number] documented in this encounter Visit Diagnoses Diagnosis Hypokalemia- Primary Hypopotassemia documented in this encounter Care Teams Air Bag Builder Relationship Specialty Start Date End Date Rg Read MD [address] [place] [phone] PCP - General 03/12/01 10/29/22 documented as of this encounter
--- OUTSIDE RECORDS SUMMARY | 2024-07-12 08:31 | XMS_ITS | Encounter Summary ---
Author Organization [facility] Address [address] [place] [address] Care Team Providers Care Real Estate Administrator Name Role Phone Iza Read MD Primary Care Provider [phone] Reason for Visit * Reason Onset Date Comments Results 06/27/2014 Encounter Details Date Type Department Care Team (Late st Contact Info) Description 06/27/2014 Telephone [facility] Internal Medicine - [facility] [address] [facility] [address] [place] [phone] Iza Read MD 141 [facility] [address] [place] [phone] Results Social History Tobacco Use Types [...] * Telephone Encounter - Agatha Bolaños - 06/27/2014 9:11 AM CST Pt notified labs shivani, paperwork faxed to Gagan An MD. OPERATOR * Telephone Encounter - Agatha Bolaños - 06/27/2014 9:11 AM CST Message copied by AGATHA BOLAÑOS on ThuJun 27, 2014 9:11 AM ------ Message from: IZA READ Created: Tue Jun 27, 2014 6:08 AM OK; pre-op ------ OPERATOR documented in this encounter Plan of Treatment Not on file documented as of this encounter Visit Diagnoses Not on filedocumented in this encounter Care Teams Real Estate Administrator Relationship Specialty Start Date End Date Iza Read MD [address] [phone] PCP - General 03/12/01 10/29/22 documented as of this encounter
--- OUTSIDE RECORDS SUMMARY | 2024-07-12 08:31 | XMS_ITS | Encounter Summary ---
Author Organization [facility] Address [address] [place] [address] Care Team Providers Care Performance Improvement Consultant Name Role Phone Rg Read MD Primary Care Provider [phone] Encounter Details Date Type Department Care Team (Late st Contact Info) Description 06/12/2014 Orders Only [facility] Internal Medicine - [facility] [address] [phone] Social History Tobacco Use Types [...] on filedocumented in this encounter Care Teams Performance Improvement Consultant Relationship Specialty Start Date End Date Rg Read MD [address] [place] [phone] PCP - General 03/12/01 10/29/22 documented as of this encounter
--- OUTSIDE RECORDS SUMMARY | 2024-07-12 08:31 | XMS_ITS | Encounter Summary ---
Author Organization [facility] Address [address] [place] [address] Care Team Providers Care Gold Prospector Name Role Phone Rg Read MD Primary Care Provider [phone] Reason for Visit * Reason Onset Date Comments General 06/26/2014 mammogram Encounter Details Date Type Department Care Team (Late st Contact Info) Description 06/26/2014 Patient Outreach [facility] Internal Medicine - [address] [phone] Rg Read MD [address] [place] [phone] General (mammogram) Social History Tobacco Use Types Packs/Day Years [...] * Telephone Encounter - Akosua Arce - 06/26/2014 3:30 PM CST Patient here for an appointment. Discussed and encouraged mammogram. LA MELTING SUPERVISOR documented in this encounter Plan of Treatment Not on file documented as of this encounter Visit Diagnoses Not on filedocumented in this encounter Care Teams Gold Prospector Relationship Specialty Start Date End Date Rg Read MD [address] [place] [phone] PCP - General 03/12/01 10/29/22 documented as of this encounter
--- OUTSIDE RECORDS SUMMARY | 2024-07-12 08:31 | XMS_ITS | Encounter Summary ---
Author Organization [facility] Address [address] [place] [address] Care Team Providers Care Cook Night Name Role Phone Rg Read MD Primary Care Provider [phone] Reason for Visit * Reason Onset Date Comments Medication Refill 05/17/2014 Encounter Details Date Type Department Care Team (Late st Contact Info) Description 05/17/2014 Refill [facility] Internal Medicine - [address] [phone] Rg Read MD [address] [place] [phone] Social History Tobacco Use Types Packs/Day [...] * Telephone Encounter - Agatha Bolaños - 05/17/2014 12:08 PM CDT Tramadol refill. documented in this encounter Plan of Treatment Not on file documented as of this encounter Visit Diagnoses Not on filedocumented in this encounter Care Teams Cook Night Relationship Specialty Start Date End Date Rg Read MD [address] [place] [phone] PCP - General 03/12/01 10/29/22 documented as of this encounter
--- OUTSIDE RECORDS SUMMARY | 2024-07-12 08:31 | XMS_ITS | Encounter Summary ---
Author Organization [facility] Address [address] [place] [address] Care Team Providers Care Commercial Loan Administrator Name Role Phone Rg Read MD Primary Care Provider [phone] Reason for Visit * Reason Comments Medication Refill Encounter Details Date Type Department Care Team (Late st Contact Info) Description 05/06/2014 Refill [facility] Internal Medicine - [address] [phone] Rg Read MD [address] [place] [phone] Social History Tobacco Use Types Packs/Day [...] on filedocumented in this encounter Care Teams Commercial Loan Administrator Relationship Specialty Start Date End Date Rg Read MD [address] [place] [phone] PCP - General 03/12/01 10/29/22 documented as of this encounter
--- OUTSIDE RECORDS SUMMARY | 2024-07-12 08:31 | XMS_ITS | Encounter Summary ---
Author Organization [facility] Address [address] [place] [address] Care Team Providers Care Mud Engineer Name Role Phone Rg Read MD Primary Care Provider Reason for Visit * Reason Comments Medication Refill Encounter Details Date Type Department Care Team (Late st Contact Info) Description 05/29/[address] [facility] Internal Medicine - [address] [phone] Rg Read MD [address] [place] [phone] Social History Tobacco Use Types Packs/Day [...] on filedocumented in this encounter Care Teams Mud Engineer Relationship Specialty Start Date End Date Rg Read MD [address] [place] [phone] PCP - General 03/12/01 10/29/22 documented as of this encounter
--- OUTSIDE RECORDS SUMMARY | 2024-07-12 08:31 | XMS_ITS | Encounter Summary ---
Author Organization [facility] Address [address] [place] [address] Care Team Providers Care Shag Truck Driver Name Role Phone Rg Read MD Primary Care Provider [phone] Reason for Visit * Reason Onset Date Comments Medication Refill 06/06/2014 Encounter Details Date Type Department Care Team (Late st Contact Info) Description 06/06/2014 Refill [facility] Internal Medicine - [address] [phone] Rg Read MD [address] [place] [phone] Social History Tobacco Use Types Packs/Day [...] * Telephone Encounter - Agatha Bolaños - 06/06/2014 2:25 PM CST Tramadol refill. HALMIC DISPENSER documented in this encounter Plan of Treatment Not on file documented as of this encounter Visit Diagnoses Not on filedocumented in this encounter Care Teams Shag Truck Driver Relationship Specialty Start Date End Date Rg Read MD [address] [place] [phone] PCP - General 03/12/01 10/29/22 documented as of this encounter
--- OUTSIDE RECORDS SUMMARY | 2024-07-12 08:31 | XMS_ITS | Encounter Summary ---
Author Organization [facility] Address [address] [place] [address] Care Team Providers Care Automotive Engineer Name Role Phone Rg Read MD Primary Care Provider [phone] Encounter Details Date Type Department Care Team (Latest Contact Info) Description 06/26/2014 6:31 PM PRODUCE SPECIALIST - 06/26/2014 11:59 PM [facility] Hospital Encounter [facility] Laboratory Support [facility] [address] [place] [address] Rg Read MD [address] [place] [address] [place] [phone] Preoperative examination, unspecified Discharge Disposition: Home or Self Care Social History Tobacco Use Types Packs/Day Years Used Date Smoking Tobacco: Never Smokeless Tobacco: Never Alcohol Use Standard Drinks/Week Comments Yes 0.8 (1 standard drink = 0.6 oz p ure alcohol) Sex and Gender Information Value Date Recorded Sex Assigned at Not on file Gender Identity Not on file Sexual Orientation Not on file documented as of this encounter Medications at Time of Discharge Medication Sig Dispensed Refills Start Date End Date cyclobenzaprine (FLEXERIL) 10 mg tablet TAKE ONE TABLET BY MOUTH THREE TIMES A DAY NEEDED FOR SPASMS 30 Tab 0 06/16/2014 07/05/2014 sertraline (ZOLOFT) 50 mg tablet TAKE ONE TABLET BY MOUTH ONCE DAILY 30 Tab 3 06/13/2014 09/13/2014 traMADol (ULTRAM) 50 mg tablet Take 1 Tab by mouth every 6 hours as needed for Pain. 30 Tab 0 06/06/2014 10/05/2014 diltiazem (CARDIZEM CD) 240 mg Controlled Delivery 24 hour capsule Take 1 Cap by mouth daily. 90 Cap 3 04/06/2014 06/25/2015 ketoprofen (ORUDIS) 75 mg capsule Take 1 Cap by mouth 2 times daily with meals. 60 Cap 3 09/12/2013 10/05/2014 triamterene-hydrochloroth iazide (DYAZIDE) 37.5-25 mg capsule 04/05/2013 04/07/2016 ALPRAZolam (XANAX) 0.25 mg tablet Take 1 Tab by mouth 2 times daily as needed for Anxiety. 60 Tab 0 05/17/2013 01/05/2015 documented as of this encounter Plan of Treatment Not on file documented as of this encounter Procedures Procedure Name Priority Date/Time Associated Diagnosis Comments CBC WITH DIFFERENTIAL Routine 06/26/2014 6:31 PM PRODUCE SPECIALIST Pre-op testing BASIC METABOLIC PANEL Routine 06/26/2014 6:31 PM PRODUCE SPECIALIST Pre-op testing documented in this encounter Results * CBC WITH DIFFERENTIAL (06/26/2014 6:31 PM PRODUCE SPECIALIST) WBC 5.7 4.0 - 9.8 K/uL [facility] RBC 4.62 3.90 - 4.90 M/uL [facility] HEMOGLOBIN 13.4 11.8 - 14.8 g/dL [facility] HEMATOCRIT 40.1 35.5 - 44.0 % [facility] MCV 86.8 82.0 - 99.0 fL [facility] MCH 29.0 27.2 - 32.6 pg [facility] MCHC 33.4 31.5 - 35.5 % [facility] PLATELETS 319 140 - 350 K/uL [facility] MPV 10.5 9.3 - 12.4 fL [facility] RDW 13.2 11.5 - 14.5 % [facility] RDW-STDEV 42.0 37.1 - 48.7 fL [facility] NEUTROPHILS 55 45 - 70 % [facility] LYMPHOCYTES 37 16 - 45 % [facility] - . [facility] MONOCYTES 6 3 - 13 % [facility] EOSINOPHILS 2 0 - 7 % [facility] BASOPHILS 0 0 - 2 % [facility] NEUTROPHIL ABSOLUTE 3.14 1.90 - 7.00 K/uL [facility] LYMPHOCYTE ABSOLUTE 2.11 0.70 - 4.50 K/uL [facility] MONOCYTE ABSOLUTE 0.36 0.10 - 1.30 K/uL [facility] EOSINOPHIL ABSOLUTE 0.10 0.00 - 0.70 K/uL [facility] BASOPHILS ABSOLUTE 0.03 0.00 - 0.20 K/uL [facility] Blood 06/26/2014 6:31 PM PRODUCE SPECIALIST 06/26/2014 7:20 PM PRODUCE SPECIALIST Rg Read MD HEMATOLOGY ORDERABLE S [facility] CLIA# [id number] [address] [facility] [place] [address] * (ABNORMAL) BASIC METABOLIC PANEL (06/26/2014 6:31 PM PRODUCE SPECIALIST) SODIUM 135(L) 136 - 145 mmol/L [facility] POTASSIUM 3.8 3.5 - 5.0 mmol/L [facility] CHLORIDE 97(L) 98 - 107 mmol/L [facility] CO2 26 22 - 29 mmol/L [facility] CALCIUM 9.4 8.6 - 10.2 mg/dL [facility] BUN 23 8 - 23 mg/dL [facility] CREATININE 0.94 0.51 - 0.95 mg/dL [facility] GLUCOSE 89 79 - 99 mg/dL [facility] GFR, >60 >=60 mL/min/1.7 sq meter [facility] GFR 59(L) >=60 mL/min/1.7 sq meter [facility] Comment: eGFR has not been validated for use in the elderly (>70 years of age), women, patients with serious co-morbid conditions, or persons with extremes of body size or muscle mass and should also be interpreted with caution in patients with acute kidney failure, dialysis dependant patients, patients reporting exceptional dietary intake (e.g.vegetarian diet, high protein diets, creatine supplementation), and patients with severe liver disease. eGFR is not valid for patients <18 years of age. ?? Based on National Kidney Disease Education Program. Blood 06/26/2014 6:31 PM PRODUCE SPECIALIST 06/26/2014 7:20 PM PRODUCE SPECIALIST Rg Read MD CHEMISTRY ORDERABLES [facility]# [id number] [facility] [place] [id number] documented in this encounter Visit Diagnoses Diagnosis Pre-op testing Preoperative examination, unspecified documented in this encounter Care Teams Automotive Engineer Relationship Specialty Start Date End Date Rg Read MD [address] [place] [address] [address] [place] [phone] PCP - General 03/12/01 10/29/22 documented as of this encounter
--- OUTSIDE RECORDS SUMMARY | 2024-07-12 08:31 | XMS_ITS | Encounter Summary ---
Author Organization [facility] Address [address] [place] [address] Care Team Providers Care Corking Machine Operator Name Role Phone Rg Read MD Primary Care Provider [phone] Reason for Visit * Reason Onset Date Comments Medication Refill 06/12/2014 Encounter Details Date Type Department Care Team (Late st Contact Info) Description 06/12/2014 Refill [facility] Internal Medicine - [address] [phone] Rg Read MD [address] [place] [phone] Social History Tobacco Use Types Packs/Day [...] * Telephone Encounter - Agatha Bolaños - 06/12/2014 9:48 AM CST Pt requesting 90 day prescription for her Sertraline. ING ANALYST documented in this encounter Plan of Treatment Not on file documented as of this encounter Visit Diagnoses Not on filedocumented in this encounter Care Teams Corking Machine Operator Relationship Specialty Start Date End Date Rg Read MD [address] [place] [phone] PCP - General 03/12/01 10/29/22 documented as of this encounter
--- OUTSIDE RECORDS SUMMARY | 2024-07-12 08:31 | XMS_ITS | Encounter Summary ---
Author Organization [facility] Address [address] [place] [address] Care Team Providers Care Geophysical Engineer Name Role Phone Rg Read MD Primary Care Provider [phone] Encounter Details Date Type Department Care Team (Latest Contact Info) Description 04/06/2014 8:31 PM CDT - 04/06/2014 11:59 PM CDT Hospital Encounter [facility] Laboratory Support Services S [facility] [address] [place] [address] Rg Read MD [address] [place] [address] [address] [place] [phone] Discharge Disposition: Home or Self Care Social [...] Sig Dispensed Refills Start Date End Date diltiazem (CARDIZEM CD) 240 mg Controlled Delivery 24 hour capsule Take 1 Cap by mouth daily. 90 Cap 3 04/06/2014 06/25/2015 sertraline (ZOLOFT) 50 mg tablet Take 1 Tab by mouth daily. Take 1/2 tab daily x 10 days then 1 tab daily. 30 Tab 0 03/30/2014 05/06/2014 traMADol (ULTRAM) 50 mg tablet Take 1 Tab by mouth every 6 hours as needed for Pain. 30 Tab 0 03/23/2014 05/17/2014 cyclobenzaprine (FLEXERIL) 10 mg tablet TAKE ONE TABLET BY MOUTH THREE TIMES A DAY NEEDED FOR SPASMS 30 Tab 0 12/14/2013 04/15/2014 ketoprofen (ORUDIS) 75 mg capsule Take 1 Cap by mouth 2 times daily with meals. 60 Cap 3 09/12/2013 10/05/2014 triamterene-hydrochloroth iazide (DYAZIDE) 37.5-25 mg capsule 04/05/2013 04/07/2016 clobetasol (TEMOVATE) 0.05 % Cream 04/22/2013 06/26/2014 amitriptyline (ELAVIL) 25 mg tablet 02/16/2013 06/26/2014 ALPRAZolam (XANAX) 0.25 mg tablet Take 1 Tab by mouth 2 times daily as needed for Anxiety. 60 Tab 0 05/17/2013 01/05/2015 pravastatin (PRAVACHOL) 10 mg Oral Tab Take 1 Tab by mouth Daily LATE. 06/26/2014 documented as of this encounter Plan of Treatment Not on file documented as of this encounter Procedures Procedure Name Priority Date/Time Associated Diagnosis Comments LIPID PANEL Routine 04/06/2014 4:35 PM CDT Pure hypercholesterolemia BASIC METABOLIC PANEL Routine 04/06/2014 4:35 PM CDT Pure hypercholesterolemia documented in this encounter Results * (ABNORMAL) BASIC METABOLIC PANEL (04/06/2014 4:35 PM CDT) SODIUM 139 136 - 145 mmol/L [facility] POTASSIUM 3.4(L) 3.5 - 5.0 mmol/L [facility] CHLORIDE 99 98 - 107 mmol/L [facility] - . [facility] CO2 24 22 - 29 mmol/L [facility] CALCIUM 9.9 8.6 - 10.2 mg/dL [facility] BUN 17 8 - 23 mg/dL [facility] CREATININE 0.90 0.51 - 0.95 mg/dL [facility] SERVICES - [facility] GLUCOSE 89 79 - 99 mg/dL [facility] GFR, >60 >=60 mL/min/1.7 sq meter [facility] - [facility] GFR >60 >=60 mL/min/1.7 sq meter [facility] Comment: eGFR has not been validated for [...] on National Kidney Disease Education Program. Blood 04/06/2014 4:35 PM CDT 04/06/2014 9:12 PM CDT Rg Read MD CHEMISTRY ORDERABLES [facility] CLIA# [id number] [address] [facility] [place] [place] [address] * (ABNORMAL) LIPID PANEL (04/06/2014 4:35 PM CDT) CHOLESTEROL 202(H) 100 - 199 mg/dL [facility] TRIGLYCERIDE 159(H) 10 - 149 mg/dL [facility] HDL 72(H) 40 - 59 mg/dL [facility] LDL CALCULATED 98 <=99 mg/dL [facility] CHOL/HDL RATIO 2.8 2.0 - 5.0 [facility] LIPID PANEL COMMENT See Below [facility] Comment: Classifications: Adult: Total Cholesterol mg/dL ? HDL Cholesterol ??mg/dL ?Desirable ?<200 ? Low ? <40 ?Borderline high ?200-239 ?Normal ?40-60 ??High ? >=240 ?Desirable ?? >60 Triglycerides ??mg/dL ?LDL Cholesterol ??mg/dL ??Normal ? <150 ? Optimal ? <100 ??Borderline high ?150-199 ?Low risk ?100-129 ??High ? 200-499 ?Borderline ??130-159 ??Very high ?>=500 ?High ?160-189 ?Very high ?? >=190 Pediatric: Total Cholesterol (<20 yrs) mg/dL ?? HDL Cholesterol (<5yrs) ?Desirable ?<170 ? No Reference Range ??Borderline high ?170-199 ?Established ??High ? >=200 Triglyceride ??mg/dL ? LDL ??mg/dL ?Pediatric classification ?Desirable ?<110 ?not defined ? Borderline ?? 110-129 ?High ? >=130 LDL calculation is not accurate if Triglycerides ??are greater than 400 mg/dL Based on AHA/NCEP Guidelines Blood 04/06/2014 4:35 PM CDT 04/06/2014 9:12 PM CDT Rg Read MD CHEMISTRY ORDERABLES [facility] SERVICES [facility]# [id number] [address] [place] [address] documented in this encounter Visit Diagnoses Diagnosis Pure hypercholesterolemia documented in this encounter Care Teams Geophysical Engineer Relationship Specialty Start Date End Date Rg Read MD [address] [phone] PCP - General 03/12/01 10/29/22 documented as of this encounter
--- OUTSIDE RECORDS SUMMARY | 2024-07-12 08:31 | XMS_ITS | Encounter Summary ---
Author Organization [facility] Address [address] [place] [address] Care Team Providers Care Safe Deposit Clerk Name Role Phone Rg Read MD Primary Care Provider [phone] Reason for Visit * Reason Onset Date Comments Medication Refill 06/16/2014 Encounter Details Date Type Department Care Team (Late st Contact Info) Description 06/16/2014 Refill [facility] Internal Medicine - [address] [address] Rg Read MD [address] [place] [phone] Social History Tobacco Use Types Packs/Day [...] * Telephone Encounter - Raysa Aviles - 06/16/2014 12:59 PM CST Flexeril refilled, ok per Dr. Read. ROPATHIC DOCTOR documented in this encounter Plan of Treatment Not on file documented as of this encounter Visit Diagnoses Not on filedocumented in this encounter Care Teams Safe Deposit Clerk Relationship Specialty Start Date End Date Rg Read MD [address] [place] [phone] PCP - General 03/12/01 10/29/22 documented as of this encounter
--- OUTSIDE RECORDS SUMMARY | 2024-07-12 08:31 | XMS_ITS | Encounter Summary ---
Author Organization [facility] Address [address] [place] [address] Care Team Providers Care Outdoor Adventure Leader Name Role Phone Iza Read MD Primary Care Provider [phone] Reason for Visit * Reason Onset Date Comments Results 04/07/2014 Encounter Details Date Type Department Care Team (Late st Contact Info) Description 04/07/[address] [facility] Internal Medicine - [facility] [address] [facility] [address] [place] [phone] Iza Read MD [address] [facility] [address] [place] [phone] Results Social History Tobacco Use Types [...] * Telephone Encounter - Agatha Bolaños - 04/07/2014 9:49 AM CDT Pt notified, results given. Instructed to add K+ to diet daily, examples given. Copy faxed to [facility], Cardiology, per patient request. * Telephone Encounter - Agatha Bolaños - 04/07/2014 9:49 AM CDT Message copied by AGATHA BOLAÑOS on ThuApr 07, 2014 9:49 AM ------ Message from: IZA READ Created: ThuApr 07, 2014 6:19 AM Non fasting OK x needs more K+ in diet ------ documented in this encounter Plan of Treatment Not on file documented as of this encounter Visit Diagnoses Not on filedocumented in this encounter Care Teams Outdoor Adventure Leader Relationship Specialty Start Date End Date Iza Read MD [address] [place] [address] [place] [phone] PCP - General 03/12/01 10/29/22 documented as of this encounter
--- OUTSIDE RECORDS SUMMARY | 2024-07-12 08:31 | XMS_ITS | Encounter Summary ---
Author Organization [facility] Address [address] [place] [address] Care Team Providers Care Application Dba Name Role Phone Rg Read MD Primary Care Provider [phone] Reason for Visit * Reason Comments Medication Refill Encounter Details Date Type Department Care Team (Late st Contact Info) Description 04/15/2014 Refill [facility] Internal Medicine - [address] [phone] Rg Read MD [address] [place] [phone] Social History Tobacco Use Types Packs/Day [...] on filedocumented in this encounter Care Teams Application Dba Relationship Specialty Start Date End Date Rg Read MD [address] [place] [phone] PCP - General 03/12/01 10/29/22 documented as of this encounter
--- OUTSIDE RECORDS SUMMARY | 2024-07-12 08:31 | XMS_ITS | Encounter Summary ---
Author Organization [facility] Address [address] [place] [address] Care Team Providers Care Edge Burnisher Uppers Name Role Phone Rg Read MD Primary Care Provider [phone] Reason for Visit * Reason Comments Preop Exam Encounter Details Date Type Department Care Team (Late st Contact Info) Description 06/26/2014 2:40 PM MANAGER UTILIZATION REVIEW Office Visit [facility] Internal Medicine - [address] [place] [phone] Rg Read MD [address] [place] [address] [place] [phone] Osteoarth NOS-unspec (Primary Dx); Pure hypercholesterolemia; Major depressive disorder, single episode, moderate; Pre-op testing Social History Tobacco Use Types Packs/Day Years [...] Sign Reading Time Taken Comments Blood Pressure 132/82 06/26/2014 2:47 PM MANAGER UTILIZATION REVIEW Pulse 76 06/26/2014 2:47 PM MANAGER UTILIZATION REVIEW Temperature - - Respiratory Rate 16 06/26/2014 2:47 PM MANAGER UTILIZATION REVIEW Oxygen Saturation - - Inhaled Oxygen Concentration - - Weight 76.7 kg (169 lb) 06/26/2014 2:47 PM MANAGER UTILIZATION REVIEW Height 170.2 cm (5' 7 ) 06/26/2014 2:47 PM MANAGER UTILIZATION REVIEW Body Mass Index 26.47 06/26/2014 2:47 PM MANAGER UTILIZATION REVIEW documented in this encounter Progress Notes * Rg Read MD - 06/26/2014 3:00 PM CST Cc: Pre op evaluation. Sharon has been having some hip pain for a very long time. She got hooked up with Dr. Sin at [place] and is going to have a hip replacement on July 07. She is here for preoperative evaluation. From that standpoint she has been fine. No chest pain, pressure, palpitations, sob, lai. Her only complaint is the limitation imposed by her hip pain. No change in bowel habits. No constipation, [...] difficulty, no clubbing, cyanosis or ischemicchanges peripherally. LAB: Pending EKG: Pending. A: I think she is medically stable for anticipated surgery with less than a 3% incidence of morbidity/mortality. I will communicate this with Dr. Sin. follow up after her surgery. DMB/me GER UTILIZATION REVIEW documented in this encounter Plan of Treatment Not on file documented as of this encounter Results * (ABNORMAL) BASIC METABOLIC PANEL (06/26/2014 6:31 PM MANAGER UTILIZATION REVIEW) SODIUM 135(L) 136 - 145 mmol/L [facility] POTASSIUM 3.8 3.5 - 5.0 mmol/L [facility] CHLORIDE 97(L) 98 - 107 mmol/L [facility] CO2 26 22 - 29 mmol/L [facility] CALCIUM 9.4 8.6 - 10.2 mg/dL [facility] BUN 23 8 - 23 mg/dL [facility] CREATININE 0.94 0.51 - 0.95 mg/dL [facility] GLUCOSE 89 79 - 99 mg/dL [facility] GFR, >60 >=60 mL/min/1.7 sq meter [facility] GFR 59(L) >=60 mL/min/1.7 sq meter [facility] Comment: eGFR has not [...] Disease Education Program. Blood 06/26/2014 6:31 PM MANAGER UTILIZATION REVIEW 06/26/2014 7:20 PM MANAGER UTILIZATION REVIEW Rg Read MD CHEMISTRY ORDERABLES [facility] SERVICES [facility] CLIA# [id number] [address] [facility] [place] [id number] * CBC WITH DIFFERENTIAL (06/26/2014 6:31 PM MANAGER UTILIZATION REVIEW) WBC 5.7 4.0 - 9.8 K/uL [facility] RBC 4.62 3.90 - 4.90 M/uL [facility] HEMOGLOBIN 13.4 11.8 - 14.8 g/dL [facility] HEMATOCRIT 40.1 35.5 - 44.0 % [facility] MCV 86.8 82.0 - 99.0 fL [facility] MCH 29.0 27.2 - 32.6 pg [facility] MCHC 33.4 31.5 - 35.5 % [facility] PLATELETS 319 140 - 350 K/uL [facility] MPV 10.5 9.3 - 12.4 fL [facility] RDW 13.2 11.5 - 14.5 % [facility] RDW-STDEV 42.0 37.1 - 48.7 fL [facility] NEUTROPHILS 55 45 - 70 % [facility] LYMPHOCYTES 37 16 - 45 % [facility] MONOCYTES 6 3 - 13 % [facility] EOSINOPHILS 2 0 - 7 % [facility] BASOPHILS 0 0 - 2 % [facility] NEUTROPHIL ABSOLUTE 3.14 1.90 - 7.00 K/uL [facility] LYMPHOCYTE ABSOLUTE 2.11 0.70 - 4.50 K/uL [facility] MONOCYTE ABSOLUTE 0.36 0.10 - 1.30 K/uL [facility] EOSINOPHIL ABSOLUTE 0.10 0.00 - 0.70 K/uL [facility] BASOPHILS ABSOLUTE 0.03 0.00 - 0.20 K/uL [facility] Blood 06/26/2014 6:31 PM MANAGER UTILIZATION REVIEW 06/26/2014 7:20 PM MANAGER UTILIZATION REVIEW Rg Read MD HEMATOLOGY ORDERABLE S [facility] LABORATORY SERVICES [facility]# [id number] [address] [place] [address] documented in this encounter Visit Diagnoses Diagnosis Osteoarth NOS-unspec- Primary Osteoarthrosis, unspecified whether generalized or localized, unspecified site Pure hypercholesterolemia Major depressive disorder, single episode, moderate Pre-op testing Preoperative examination, unspecified documented in this encounter Care Teams Edge Burnisher Uppers Relationship Specialty Start Date End Date Rg Read MD [address] [phone] PCP - General 03/12/01 10/29/22 documented as of this encounter
--- OUTSIDE RECORDS SUMMARY | 2024-07-12 08:32 | XMS_ITS | Encounter Summary ---
Author Organization [facility] Address [address] [place] [address] Care Team Providers Care Forest Practices Field Coordinator Name Role Phone Rg Read MD Primary Care Provider [phone] Reason for Visit * Reason Onset Date Comments Medication Refill 08/19/2013 Encounter Details Date Type Department Care Team (Late st Contact Info) Description 08/19/2013 Refill [facility] Internal Medicine - [address] [phone] Rg Read MD [address] [place] [phone] Social History Tobacco Use Types Packs/Day [...] * Telephone Encounter - Agatha Bolaños - 08/19/2013 1:22 PM CST Tramadol refill. NCE LIAISON documented in this encounter Plan of Treatment Not on file documented as of this encounter Visit Diagnoses Not on filedocumented in this encounter Care Teams Forest Practices Field Coordinator Relationship Specialty Start Date End Date Rg Read MD [address] [place] [phone] PCP - General 03/12/01 10/29/22 documented as of this encounter
--- OUTSIDE RECORDS SUMMARY | 2024-07-12 08:32 | XMS_ITS | Encounter Summary ---
Author Organization [facility] Address [address] [place] [address] Care Team Providers Care Angle Roll Operator Name Role Phone Rg Read MD Primary Care Provider [phone] Reason for Visit * Reason Onset Date Comments Medication Refill 12/20/2013 Encounter Details Date Type Department Care Team (Late st Contact Info) Description 12/20/2013 Refill [facility] Internal Medicine - [address] [address] Rg Read MD [address] [place] [phone] Social History Tobacco Use Types Packs/Day [...] * Telephone Encounter - Agatha Bolaños - 12/20/2013 2:34 PM CDT Tramadol refill. documented in this encounter Plan of Treatment Not on file documented as of this encounter Visit Diagnoses Not on filedocumented in this encounter Care Teams Angle Roll Operator Relationship Specialty Start Date End Date Rg Read MD [address] [place] [phone] PCP - General 03/12/01 10/29/22 documented as of this encounter
--- OUTSIDE RECORDS SUMMARY | 2024-07-12 08:32 | XMS_ITS | Encounter Summary ---
Author Organization [facility] Address [address] [place] [address] Care Team Providers Care Pole Incisor Operator Name Role Phone Iza Read MD Primary Care Provider Reason for Visit * Reason Onset Date Comments Results 06/21/2013 Encounter Details Date Type Department Care Team (Late st Contact Info) Description 06/21/2013 Telephone [facility] Internal Medicine - [facility] [address] [facility] [address] [place] [address] Iza Read MD 141 [facility] [address] [place] [phone] Results Social History Tobacco Use Types [...] * Telephone Encounter - Agatha Bolaños - 06/21/2013 9:22 AM CST Pt notified. ANICAL DESIGN TECHNICIAN * Telephone Encounter - Agatha Bolaños - 06/21/2013 9:22 AM CST Message copied by AGATHA BOLAÑOS on ThuJun 21, 2013 9:22 AM ------ Message from: IZA READ Created: ThuJun 20, 2013 9:32 AM Arthritis and joint space narrowing ------ ANICAL DESIGN TECHNICIAN documented in this encounter Plan of Treatment Not on file documented as of this encounter Visit Diagnoses Not on filedocumented in this encounter Care Teams Pole Incisor Operator Relationship Specialty Start Date End Date Iza Read MD [address] [phone] PCP - General 03/12/01 10/29/22 documented as of this encounter
--- OUTSIDE RECORDS SUMMARY | 2024-07-12 08:32 | XMS_ITS | Encounter Summary ---
Author Organization [facility] Address [address] [place] [address] Care Team Providers Care Bread Racker Name Role Phone Rg Read MD Primary Care Provider [phone] Reason for Visit * Reason Onset Date Comments Medication Refill 09/09/2013 Encounter Details Date Type Department Care Team (Late st Contact Info) Description 09/09/2013 Refill [facility] Internal Medicine - [address] [address] Rg Read MD [address] [place] [phone] Social History Tobacco Use Types Packs/Day [...] * Telephone Encounter - Raysa Aviles - 09/09/2013 3:07 PM CST Ketoprofen refilled. N FACTORS ERGONOMIST documented in this encounter Plan of Treatment Not on file documented as of this encounter Visit Diagnoses Not on filedocumented in this encounter Care Teams Bread Racker Relationship Specialty Start Date End Date Rg Read MD [address] [place] [phone] PCP - General 03/12/01 10/29/22 documented as of this encounter
--- OUTSIDE RECORDS SUMMARY | 2024-07-12 08:32 | XMS_ITS | Encounter Summary ---
Author Organization [facility] Address [address] [place] [address] Care Team Providers Care Rf Engineer Name Role Phone Rg Read MD Primary Care Provider [phone] Reason for Visit * Reason Onset Date Comments General 04/06/2014 mammogram Encounter Details Date Type Department Care Team (Late st Contact Info) Description 04/06/2014 Telephone [facility] Internal Medicine - [address] [phone] Rg Read MD [address] [place] [phone] General (mammogram) Social History Tobacco Use [...] * Telephone Encounter - Akosua Arce - 04/06/2014 5:00 PM CDT Patient here for an appointment. Discussed and encouraged mammogram. documented in this encounter Plan of Treatment Not on file documented as of this encounter Visit Diagnoses Not on filedocumented in this encounter Care Teams Rf Engineer Relationship Specialty Start Date End Date Rg Read MD [address] [place] [phone] PCP - General 03/12/01 10/29/22 documented as of this encounter
--- OUTSIDE RECORDS SUMMARY | 2024-07-12 08:32 | XMS_ITS | Encounter Summary ---
Author Organization [facility] Address [address] [place] [address] Care Team Providers Care Expander Machine Operator Name Role Phone Rg Read MD Primary Care Provider [phone] Reason for Visit * Reason Onset Date Comments Medication Refill 10/25/2013 Encounter Details Date Type Department Care Team (Late st Contact Info) Description 10/25/2013 Refill [facility] Internal Medicine - [address] [phone] Rg Read MD [address] [place] [phone] Social History Tobacco Use Types Packs/Day [...] * Telephone Encounter - Raysa Aviles - 10/25/2013 3:16 PM CDT Tramadol refilled, ok per Dr. Read. documented in this encounter Plan of Treatment Not on file documented as of this encounter Visit Diagnoses Not on filedocumented in this encounter Care Teams Expander Machine Operator Relationship Specialty Start Date End Date Rg Read MD [address] [place] [phone] PCP - General 03/12/01 10/29/22 documented as of this encounter
--- OUTSIDE RECORDS SUMMARY | 2024-07-12 08:32 | XMS_ITS | Encounter Summary ---
Author Organization [facility] Address [address] [place] [address] Care Team Providers Care Drop Hammer Operator Helper Name Role Phone Rg Read MD Primary Care Provider Encounter Details Date Type Department Care Team (Late st Contact Info) Description 03/30/2014 Orders Only [facility] Internal Medicine - [facility] [address] [address] Social History Tobacco Use Types [...] on filedocumented in this encounter Care Teams Drop Hammer Operator Helper Relationship Specialty Start Date End Date Rg Read MD [address] [place] [phone] PCP - General 03/12/01 10/29/22 documented as of this encounter
--- OUTSIDE RECORDS SUMMARY | 2024-07-12 08:32 | XMS_ITS | Encounter Summary ---
Author Organization [facility] Address [address] [place] [address] Care Team Providers Care Water Main Installer Helper Name Role Phone Rg Read MD Primary Care Provider [phone] Reason for Visit * Reason Onset Date Comments Medication Refill 05/31/2013 Encounter Details Date Type Department Care Team (Late st Contact Info) Description 05/31/2013 Refill [facility] Internal Medicine - [address] [address] Rg Read MD [address] [place] [phone] Social History Tobacco Use Types Packs/Day [...] Miscellaneous Notes * Telephone Encounter - Raysa Avlies - 05/31/2013 1:13 PM CST Flexeril refilled, ok per Dr. Read. RIMENTAL PHYSICIST documented in this encounter Plan of Treatment Not on file documented as of this encounter Visit Diagnoses Not on filedocumented in this encounter Care Teams Water Main Installer Helper Relationship Specialty Start Date End Date Rg Read MD [address] [place] [phone] PCP - General 03/12/01 10/29/22 documented as of this encounter
--- OUTSIDE RECORDS SUMMARY | 2024-07-12 08:32 | XMS_ITS | Encounter Summary ---
Author Organization [facility] Address [address] [place] [address] Care Team Providers Care Layout Man Name Role Phone Rg Read MD Primary Care Provider [phone] Reason for Visit * Reason Comments Medication Refill Encounter Details Date Type Department Care Team (Late st Contact Info) Description 10/23/2013 Refill [facility] Internal Medicine - [address] [phone] Rg Read MD [address] [place] [phone] Social History Tobacco Use Types Packs/Day [...] on filedocumented in this encounter Care Teams Layout Man Relationship Specialty Start Date End Date Rg Read MD [address] [place] [phone] PCP - General 03/12/01 10/29/22 documented as of this encounter
--- OUTSIDE RECORDS SUMMARY | 2024-07-12 08:32 | XMS_ITS | Encounter Summary ---
Author Organization [facility] Address [address] [place] [address] Care Team Providers Care Engraver Tender Name Role Phone Rg Read MD Primary Care Provider [phone] Reason for Visit * Reason Comments Medication Refill Encounter Details Date Type Department Care Team (Late st Contact Info) Description 12/14/2013 Refill [facility] Internal Medicine - [address] [phone] Rg Read MD [address] [place] [phone] Social History Tobacco Use Types Packs/Day [...] * Telephone Encounter - Raysa Aviles - 12/15/2013 1:08 PM CDT Flexeril refilled, ok per Dr. Read. documented in this encounter Plan of Treatment Not on file documented as of this encounter Visit Diagnoses Not on filedocumented in this encounter Care Teams Engraver Tender Relationship Specialty Start Date End Date Rg Read MD [address] [place] [phone] PCP - General 03/12/01 10/29/22 documented as of this encounter
--- OUTSIDE RECORDS SUMMARY | 2024-07-12 08:32 | XMS_ITS | Encounter Summary ---
Author Organization [facility] Address [address] [place] [address] Care Team Providers Care Food Quality Technician Name Role Phone Rg Read MD Primary Care Provider [phone] Reason for Referral * Eval and Treat (Routine) - Closed Specialty Diagnoses / Procedures Referred By Contac t Referred To Contact Physical Therapy Diagnoses Osteoarthrosis, unspecified whether generalized or localized, unspecified site Rg Read MD [address] [place] [phone] Referral ID Status Reason Start Date Expiration Date V isits Requested Visits Authorized [id number] Closed CRS To Schedule (STL) 05/23/2013 05/24/2014 6 6 Reason for Visit * Reason Onset Date Comments Pain 05/23/2013 Encounter Details Date Type Department Care Team (Late st Contact Info) Description 05/23/2013 Telephone [facility] Internal Medicine - [facility] [address] [address] Rg Read MD [address] [place] [phone] Pain Social History Tobacco Use Types Packs/Day [...] encounter Miscellaneous Notes * Telephone Encounter - Vurro Akosua, RN - 05/23/2013 3:28 PM CDT Patient calling states still having pain in left hip/groin area. Requesting PT. New orders received. [facility] has a PT facility in [place]. Informed schedule an appointment. Call us with fax number and orders will be faxed. documented in this encounter Plan of Treatment Scheduled Referrals Name Type Priority Associated Diagnoses Orde r Schedule AMB REFERRAL TO PHYSICAL THERAPY Outpatient Referral Routine Osteoarth NOS-unspec Ordered: 05/23/2013 documented as of this encounter Visit Diagnoses Diagnosis Osteoarth NOS-unspec- Primary Osteoarthrosis, unspecified whether generalized or localized, unspecified site documented in this encounter Care Teams Food Quality Technician Relationship Specialty Start Date End Date Rg Read MD [address] [phone] PCP - General 03/12/01 10/29/22 documented as of this encounter
--- OUTSIDE RECORDS SUMMARY | 2024-07-12 08:32 | XMS_ITS | Encounter Summary ---
Author Organization [facility] Address [address] [place] [address] Care Team Providers Care Package Winder Name Role Phone Rg Read MD Primary Care Provider Reason for Visit * Reason Onset Date Comments Medication Refill 03/23/2014 Encounter Details Date Type Department Care Team (Late st Contact Info) Description 03/23/2014 Refill [facility] Internal Medicine - [address] [phone] Rg Read MD [address] [place] [phone] Social History Tobacco Use Types Packs/Day [...] * Telephone Encounter - Raysa Aviles - 03/23/2014 1:57 PM CDT Tramadol refilled, ok per Dr. Read. documented in this encounter Plan of Treatment Not on file documented as of this encounter Visit Diagnoses Not on filedocumented in this encounter Care Teams Package Winder Relationship Specialty Start Date End Date Rg Read MD [address] [place] [phone] PCP - General 03/12/01 10/29/22 documented as of this encounter
--- OUTSIDE RECORDS SUMMARY | 2024-07-12 08:32 | XMS_ITS | Encounter Summary ---
Author Organization [facility] Address [address] [place] [address] Care Team Providers Care Tube Cleaner Name Role Phone Rg Read MD Primary Care Provider [phone] Reason for Visit * Reason Onset Date Comments Erroneous encounter-disregard 12/20/2013 Encounter Details Date Type Department Care Team (Late st Contact Info) Description 12/20/2013 [facility] Internal Medicine - [facility] [address] [address] Rg Read MD [address] [place] [phone] Social History Tobacco Use Types Packs/Day [...] on filedocumented in this encounter Care Teams Tube Cleaner Relationship Specialty Start Date End Date Rg Read MD [address] [place] [phone] PCP - General 03/12/01 10/29/22 documented as of this encounter
--- OUTSIDE RECORDS SUMMARY | 2024-07-12 08:32 | XMS_ITS | Encounter Summary ---
Author Organization [facility] Address [address] [place] [address] Care Team Providers Care Spring Tester Name Role Phone Rg Read MD Primary Care Provider [phone] Encounter Details Date Type Department Care Team (Late st Contact Info) Description 06/21/2013 Orders Only [facility] Internal Medicine - [address] [phone] Rg Read MD [address] [place] [phone] Other screening mammogram Social History Tobacco Use Types Packs/Day Years [...] Name Priority Date/Time Associated Diagnosis Comments MAMMO SCREEN BILAT W OR WO CAD Routine 06/21/2013 Other screening mammogram documented in this encounter Results * MAMMO DIGITAL SCREEN BILAT (06/21/2013) Anatomical Region Laterality Modality Breast Bilateral Other Rg Read MD MAMMO ORDERABLES documented in this encounter Visit Diagnoses Diagnosis Other screening mammogram documented in this encounter Care Teams Spring Tester Relationship Specialty Start Date End Date gR Read MD [address] [place] [phone] PCP - General 03/12/01 10/29/22 documented as of this encounter
--- OUTSIDE RECORDS SUMMARY | 2024-07-12 08:32 | XMS_ITS | Encounter Summary ---
Author Organization [facility] Address [address] [place] [address] Care Team Providers Care Beater Out Leveling Machine Name Role Phone Rg Read MD Primary Care Provider [phone] Encounter Details Date Type Department Care Team (Late st Contact Info) Description 06/17/2013 Orders Only [facility] Internal Medicine - [address] [address] Rg Read MD [address] [place] [phone] Hip pain Social History Tobacco Use Types Packs/Day [...] Name Priority Date/Time Associated Diagnosis Comments XR HIP 2 OR 3 VIEWS LT Routine 06/20/2013 Hip pain documented in this encounter Results * (ABNORMAL) XR HIP 2+ VW LEFT (06/20/2013) Anatomical Region Laterality Modality Lower Extremity Left Other Rg Read MD DIAGNOSTIC IMAGING O RDERABLES documented in this encounter Visit Diagnoses Diagnosis Hip pain Pain in joint, pelvic region and thigh documented in this encounter Care Teams Beater Out Leveling Machine Relationship Specialty Start Date End Date Rg Read MD [address] [place] [phone] PCP - General 03/12/01 10/29/22 documented as of this encounter
--- OUTSIDE RECORDS SUMMARY | 2024-07-12 08:32 | XMS_ITS | Encounter Summary ---
Author Organization [facility] Address [address] [place] [address] Care Team Providers Care Agile Developer Name Role Phone Rg Read MD Primary Care Provider [phone] Reason for Referral * Outpatient Services (Routine) - Closed Specialty Diagnoses / Procedures Referred By Gigi orosco Referred To Contact Diagnoses Other screening mammogram Procedures MAMMO DIGITAL SCREEN Rg Velasco MD [address] [place] [phone] [facility] [address] [place] [address] Referral ID Status Reason Start Date Expiration Date V isits Requested Visits Authorized [id number] Closed STL CTS 06/14/2013 07/15/2014 1 1 E PRACTITIONER PHYSICIANS ASSISTANT Reason for Visit * Reason Onset Date Comments Hip Pain 06/14/2013 Encounter Details Date Type Department Care Team (Late st Contact Info) Description 06/14/2013 Telephone [facility] Internal Medicine - [facility] [address] [facility] [address] [place] [address] Rg Read MD [address] [place] [phone] Hip Pain Social History Tobacco Use Types Packs/Day [...] Notes * Telephone Encounter - Agatha Bolaños R - 06/14/2013 1:28 PM CST Pt calling today requesting a left hip x-ray for ongoing hip pain, and a refill of Tramadol. Order obtained for the hip x-ray and Tramadol. Oh, by the way , you might as well order me a Mammogram while I am going also! E PRACTITIONER PHYSICIANS ASSISTANT documented in this encounter Plan of Treatment Not on file documented as of this encounter Results * MAMMO DIGITAL SCREEN BILAT (06/21/2013) Anatomical Region Laterality Modality Breast Bilateral Other Rg Read MD MAMMO ORDERABLES * (ABNORMAL) XR HIP 2+ VW LEFT (06/20/2013) Anatomical Region Laterality Modality Lower Extremity Left Other Rg Read MD DIAGNOSTIC IMAGING O RDERABLES documented in this encounter Visit Diagnoses Diagnosis Hip pain- Primary Pain in joint, pelvic region and thigh Other screening mammogram documented in this encounter Care Teams Agile Developer Relationship Specialty Start Date End Date Rg Read MD [address] [place] [phone] PCP - General 03/12/01 10/29/22 documented as of this encounter
--- OUTSIDE RECORDS SUMMARY | 2024-07-12 08:32 | XMS_ITS | Encounter Summary ---
Author Organization [facility] Address [address] [place] [address] Care Team Providers Care Geological Survey Field Assistant Name Role Phone Rg Read MD Primary Care Provider [phone] Reason for Visit * Reason Onset Date Comments Medication Refill 09/12/2013 Encounter Details Date Type Department Care Team (Late st Contact Info) Description 09/12/2013 Refill [facility] Internal Medicine - [address] [phone] Rg Read MD [address] [place] [phone] Social History Tobacco Use Types Packs/Day [...] * Telephone Encounter - Agatha Bolaños - 09/12/2013 8:02 AM CST Ketoprofen refill. NG AND SURFACING LABOURER documented in this encounter Plan of Treatment Not on file documented as of this encounter Visit Diagnoses Not on filedocumented in this encounter Care Teams Geological Survey Field Assistant Relationship Specialty Start Date End Date Rg Read MD [address] [place] [phone] PCP - General 03/12/01 10/29/22 documented as of this encounter
--- OUTSIDE RECORDS SUMMARY | 2024-07-12 08:32 | XMS_ITS | Encounter Summary ---
Author Organization [facility] Address [address] [place] [address] Care Team Providers Care Retail Key Holder Name Role Phone Rg Read MD Primary Care Provider [phone] Reason for Visit * Reason Onset Date Comments Medication Refill 07/25/2013 Encounter Details Date Type Department Care Team (Late st Contact Info) Description 07/25/2013 Refill [facility] Internal Medicine - [address] [address] Rg Read MD [address] [place] [phone] Social History Tobacco Use Types Packs/Day [...] * Telephone Encounter - Raysa Aviles - 07/25/2013 3:50 PM CST Tramadol refilled. ER OPERATOR documented in this encounter Plan of Treatment Not on file documented as of this encounter Visit Diagnoses Not on filedocumented in this encounter Care Teams Retail Key Holder Relationship Specialty Start Date End Date Rg Read MD [address] [place] [phone] PCP - General 03/12/01 10/29/22 documented as of this encounter
--- OUTSIDE RECORDS SUMMARY | 2024-07-12 08:32 | XMS_ITS | Encounter Summary ---
Author Organization [facility] Address [address] [place] [address] Care Team Providers Care Wrapper Stemmer Operator Name Role Phone Rg Read MD Primary Care Provider [phone] Reason for Visit * Reason Comments Follow Up Encounter Details Date Type Department Care Team (Latest Contact Info) Description 04/06/2014 4:20 PM CDT Office Visit [facility] ([facility] Internal Medicine - [address] [place] [phone] Rg Read MD [address] [place] [address] [place] [phone] Pure hypercholesterolemia (Primary Dx); Osteoarth NOS-unspec; Major depressive disorder, single episode, moderate Social [...] Reading Time Taken Comments Blood Pressure 132/82 04/06/2014 4:29 PM CDT Pulse 84 04/06/2014 4:29 PM CDT Temperature - - Respiratory Rate 14 04/06/2014 4:29 PM CDT Oxygen Saturation - - Inhaled Oxygen Concentration - - Weight 74.8 kg (165 lb) 04/06/2014 4:29 PM CDT Height 170.2 cm (5' 7 ) 04/06/2014 4:29 PM CDT Body Mass Index 25.84 04/06/2014 4:29 PM CDT documented in this encounter Progress Notes * Rg Read MD - 04/06/2014 4:56 PM CDT CC: The patient is here to follow up to assess whether the multiple medical problems are under reasonable control and multiple issues. The tinnitus is really causing her to be depressed. I started her on some medicine and had her follow up. Her ENT doctor wants her to see a psychiatrist because he feels the tinnitus is making her depressed too but the group he sent her to, doesn???t take Medicare. In terms of hypertension, denies chest pain or pressure, no palpitations, denies any shortness of breath at rest or trouble breathing with activity and no pedal edema. Her blood pressure has been running high at home. In terms of the degenerative arthritis, no new joint pains. PFS: Both preceding this visit and during [...] no clubbing, cyanosis or ischemicchanges peripherally. A: depression. We are going to try the Zoloft. follow up 4-5 weeks. Hypertension, uncontrolled: I am bumping her diltiazem up from 180 to 240 qd. Degenerative arthritis, stable, continue same regimen. Will obtain a blood sugar to assess [...] medications. Will communicate results to the patient. Encouraged patient to obtain an annual flu shot in an effort to decrease the risk of morbidity/mortality associated with influenza, infections. Recommended a screening mammogram per ACP guidelines [...] osteoporosis. Will discuss results with the patient. I am going to send her to our psychologist to see if he can help her. follow up 4-6 weeks. DMB/me * Agatha Bolaños - 04/06/2014 4:45 PM CDT Pt states she will get Mammogram and BD in May. She will get Flu Shot. documented in this encounter Plan of Treatment Not on file documented as of this encounter Results * (ABNORMAL) LIPID PANEL (04/06/2014 4:35 PM CDT) [facility] CHOLESTEROL 202(H) 100 - 199 mg/dL [facility] TRIGLYCERIDE 159(H) 10 - 149 mg/dL [facility] HDL 72(H) 40 - 59 mg/dL [facility] LDL CALCULATED 98 <=99 mg/dL [facility] CHOL/HDL RATIO 2.8 2.0 - 5.0 [facility] LIPID PANEL COMMENT See Below [facility] Comment: Classifications: Adult: Total Cholesterol mg/dL ? [...] PM CDT Rg Read MD CHEMISTRY ORDERABLES [facility] [employer] [facility] CLIA# [id number] [address] [place], [place] [address] * (ABNORMAL) BASIC METABOLIC PANEL (04/06/2014 4:35 PM CDT) SODIUM 139 136 - 145 mmol/L [facility] [employer] [facility] POTASSIUM 3.4(L) 3.5 - 5.0 mmol/L [facility] CHLORIDE 99 98 - 107 mmol/L [employer] [facility] CO2 24 22 - 29 mmol/L [employer] [facility] CALCIUM 9.9 8.6 - 10.2 mg/dL [facility]OR[facility]ORY SERVICES - [facility] BUN 17 8 - 23 mg/dL [facility]OR[facility]ORY SERVICES - [facility] CREATININE 0.90 0.51 - 0.95 mg/dL [facility]OR[facility]ORY SERVICES - [facility] GLUCOSE 89 79 - 99 mg/dL [facility] SERVICES - [facility] GFR, >60 >=60 mL/min/1.7 sq meter [facility] LABORATORY SERVICES - . [facility] GFR >60 >=60 mL/min/1.7 sq meter [facility] LABORATORY SERVICES - [facility] Comment: eGFR has not been validated for [...] PM CDT Rg Read MD CHEMISTRY ORDERABLES [facility]ORY SERVICES - [facility]# [id number] [address] [facility] [place] [address] documented in this encounter Visit Diagnoses Diagnosis Pure hypercholesterolemia- Primary Osteoarth NOS-unspec Osteoarthrosis, unspecified whether generalized or localized, unspecified site Major depressive disorder, single episode, moderate documented in this encounter Care Teams Wrapper Stemmer Operator Relationship Specialty Start Date End Date Rg Read MD [address] [place] [phone] PCP - General 03/12/01 10/29/22 documented as of this encounter
--- OUTSIDE RECORDS SUMMARY | 2024-07-12 08:32 | XMS_ITS | Encounter Summary ---
Author Organization [facility] Address [address] [place] [address] Care Team Providers Care Event Technician Name Role Phone Rg Read MD Primary Care Provider [phone] Reason for Visit * Reason Onset Date Comments Medication Refill 03/30/2014 Encounter Details Date Type Department Care Team (Late st Contact Info) Description 03/30/2014 Telephone [facility] [place] [facility] ([facility] Internal Medicine - [facility] [address] [facility] [address] [place] [phone] Rg Read MD [address] [facility] [address] [place] [address] Medication Refill Social History Tobacco Use [...] * Telephone Encounter - Akosua Arce - 03/30/2014 5:41 PM CDT Patient calling requesting Zoloft. [facility] has appointment scheduled for 04/10. Going out of town. [facility] has not taken medication since 2011. New orders received. Informed rx sent to pharm. Take 1/2 tab daily x 10 days then increase to a full tablet. Keep f/u appointment. Call for problems before then if needed. documented in this encounter Plan of Treatment Not on file documented as of this encounter Visit Diagnoses Not on filedocumented in this encounter Care Teams Event Technician Relationship Specialty Start Date End Date Rg Read MD [address] [place] [phone] PCP - General 03/12/01 10/29/22 documented as of this encounter
--- OUTSIDE RECORDS SUMMARY | 2024-07-12 08:32 | XMS_ITS | Encounter Summary ---
Author Organization [facility] Address [address] [place] [address] Care Team Providers Care Security Analyst Name Role Phone Iza Read MD Primary Care Provider [phone] Reason for Visit * Reason Onset Date Comments Results 06/21/2013 Encounter Details Date Type Department Care Team (Late st Contact Info) Description 06/21/2013 Telephone [facility] Internal Medicine - [facility] [address] [facility] [address] [place] [phone] Iza Read MD [address] [facility] [address] [place] [phone] Results Social History Tobacco Use Types [...] Telephone Encounter - Agatha Bolaños - 06/21/2013 2:57 PM CST LM mammogram is fine, call for questions. L SECRETARY RECEPTIONIST * Telephone Encounter - Agatha Bolaños - 06/21/2013 2:57 PM CST Message copied by AGATHA BOLAÑOS on ThuJun 21, 2013 2:57 PM ------ Message from: IZA READ Created: ThuJun 21, 2013 1:37 PM All OK ------ L SECRETARY RECEPTIONIST documented in this encounter Plan of Treatment Not on file documented as of this encounter Visit Diagnoses Not on filedocumented in this encounter Care Teams Security Analyst Relationship Specialty Start Date End Date Iza Read MD [address] [address] PCP - General 03/12/01 10/29/22 documented as of this encounter
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
--- OUTSIDE RECORDS SUMMARY | 2024-07-12 08:33 | XMS_ITS | Encounter Summary ---
Author Organization [facility] Address [address] [place] [address] Care Team Providers Care Rental Clerk Tool And Equipment Name Role Phone Rg Read MD Primary Care Provider [phone] Reason for Visit * Reason Onset Date Comments Medication Refill 04/03/2011 Encounter Details Date Type Department Care Team (Late st Contact Info) Description 04/03/2011 Refill [facility] Internal Medicine - [address] [address] Rg Read MD [address] [place] [phone] Social History Tobacco Use Types Packs/Day Years Used Date Smoking Tobacco: Never Alcohol Use Standard Drinks/Week Comments Yes 0.8 (1 standard drink = 0.6 oz p ure alcohol) Sex and Gender Information Value Date Recorded Sex Assigned at Not on file Gender Identity Not on file Sexual Orientation Not on file documented as of this encounter Miscellaneous Notes * Telephone Encounter - Agatha Bolaños RN - 04/03/2011 3:48 PM CDT Xanax refill. documented in this encounter Plan of Treatment Not on file documented as of this encounter Visit Diagnoses Not on filedocumented in this encounter Care Teams Rental Clerk Tool And Equipment Relationship Specialty Start Date End Date Rg Read MD [address] [place] [phone] PCP - General 03/12/01 10/29/22 documented as of this encounter
--- OUTSIDE RECORDS SUMMARY | 2024-07-12 08:33 | XMS_ITS | Encounter Summary ---
Author Organization [facility] Address [address] [place] [address] Care Team Providers Care Shirring Tender Name Role Phone Rg Read MD Primary Care Provider Reason for Visit * Reason Onset Date Comments Sinus Infection 11/22/2012 Encounter Details Date Type Department Care Team (Late st Contact Info) Description 11/22/2012 Telephone [facility] Internal Medicine - [address] [address] Rg Read MD [address] [place] [phone] Sinus Infection Social History Tobacco Use Types Packs/Day Years [...] * Telephone Encounter - Raysa Aviles - 11/22/2012 1:40 PM CDT Patient would like abx for sinus infection & laryngitis. Zpak per Dr. Read, Patient informed. documented in this encounter Plan of Treatment Not on file documented as of this encounter Visit Diagnoses Not on filedocumented in this encounter Care Teams Shirring Tender Relationship Specialty Start Date End Date Rg Read MD [address] [place] [phone] PCP - General 03/12/01 10/29/22 documented as of this encounter
--- OUTSIDE RECORDS SUMMARY | 2024-07-12 08:33 | XMS_ITS | Encounter Summary ---
Author Organization [facility] Address [address] [place] [address] Care Team Providers Care Control Systems Engineer Name Role Phone Rg Read MD Primary Care Provider Reason for Visit * Reason Onset Date Comments Medication Refill 11/13/2011 Encounter Details Date Type Department Care Team (Late st Contact Info) Description 11/13/2011 Refill [facility] Internal Medicine - [address] [phone] Rg Read MD [address] [place] [phone] Social History Tobacco Use Types Packs/Day [...] * Telephone Encounter - Raysa Aviles - 11/13/2011 1:48 PM CDT Flexeril refilled, ok per Dr. Read. documented in this encounter Plan of Treatment Not on file documented as of this encounter Visit Diagnoses Not on filedocumented in this encounter Care Teams Control Systems Engineer Relationship Specialty Start Date End Date Rg Read MD [address] [place] [address] PCP - General 03/12/01 10/29/22 documented as of this encounter
--- OUTSIDE RECORDS SUMMARY | 2024-07-12 08:33 | XMS_ITS | Encounter Summary ---
Author Organization [facility] Address [address] [place] [address] Care Team Providers Care Back Hoe Operator Name Role Phone Iza Read MD Primary Care Provider [phone] Reason for Visit * Reason Onset Date Comments Results 08/06/2011 Encounter Details Date Type Department Care Team (Late st Contact Info) Description 08/06/2011 Telephone [facility] Internal Medicine - [facility] [address] [facility] [address] [place] [address] Iza Read MD [address] [facility] [address] [place] [phone] Results Social History Tobacco Use Types [...] * Telephone Encounter - Agatha Bolaños - 08/06/2011 11:53 AM CST Pt notified labs shivani, results given. KEN RAISER * Telephone Encounter - Agatha Bolaños - 08/06/2011 11:53 AM CST Message copied by AGATHA BOLAÑOS on ThuAug 06, 2011 11:53 AM ------ Message from: IZA READ Created: ThuAug 06, 2011 10:07 AM Non fasting good KEN RAISER documented in this encounter Plan of Treatment Not on file documented as of this encounter Visit Diagnoses Not on filedocumented in this encounter Care Teams Back Hoe Operator Relationship Specialty Start Date End Date Iza Read MD [address] [phone] PCP - General 03/12/01 10/29/22 documented as of this encounter
--- OUTSIDE RECORDS SUMMARY | 2024-07-12 08:33 | XMS_ITS | Encounter Summary ---
Author Organization [facility] Address [address] [place] [address] Care Team Providers Care Water Service Dispatcher Name Role Phone Rg Read MD Primary Care Provider [phone] Reason for Visit * Reason Comments Follow Up Encounter Details Date Type Department Care Team (Late st Contact Info) Description 08/26/2012 4:20 PM SOCIAL MEDIA SPECIALIST [facility] Internal Medicine - [address] [place] [phone] Rg Read MD [address] [place] [address] [place] [phone] Osteoarth NOS-unspec (Primary Dx) Social History Tobacco Use Types [...] Sign Reading Time Taken Comments Blood Pressure 130/80 08/26/2012 4:20 PM SOCIAL MEDIA SPECIALIST Pulse 80 08/26/2012 4:20 PM SOCIAL MEDIA SPECIALIST Temperature - - Respiratory Rate 12 08/26/2012 4:20 PM SOCIAL MEDIA SPECIALIST Oxygen Saturation - - Inhaled Oxygen Concentration - - Weight 75.3 kg (166 lb) 08/26/2012 4:20 PM SOCIAL MEDIA SPECIALIST Height 170.2 cm (5' 7 ) 08/26/2012 4:20 PM SOCIAL MEDIA SPECIALIST Body Mass Index 26 08/26/2012 4:20 PM SOCIAL MEDIA SPECIALIST documented in this encounter Progress Notes * Rg Read MD - 08/26/2012 4:32 PM CST CC: The patient is here to follow up to assess whether the multiple medical problems are under reasonable control and multiple issues. Left shoulder is bothering her. She is not sure she did anything to it. She is requesting a cortisone inject. She is seeing an ENT at [facility]. They have not made a conclusive diagnosis yet. In terms of hypertension, denies chest pain or pressure, no palpitations, denies any shortness of breath at rest or trouble breathing with activity and no pedal edema. 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 I reviewed the notes. PFS: Both preceding this visit and during [...] or ulcers, no induration or nodules. Musculoskeletal: Left shoulder has good ROM. No swelling. She does grimace when she flexes at 90 degrees and abducts above 90 degrees. A: Tendonitis. After discussing options, the patient is agreeable and under aseptic conditions I injected 40mg of kenalog. follow up 3 months. DMB/me [place] MEDIA SPECIALIST documented in this encounter Plan of Treatment Not on file documented as of this encounter Visit Diagnoses Diagnosis Osteoarth NOS-unspec- Primary Osteoarthrosis, unspecified whether generalized or localized, unspecified site documented in this encounter Care Teams Water Service Dispatcher Relationship Specialty Start Date End Date Rg Read MD [address] [phone] PCP - General 03/12/01 10/29/22 documented as of this encounter
--- OUTSIDE RECORDS SUMMARY | 2024-07-12 08:33 | XMS_ITS | Encounter Summary ---
Author Organization [facility] Address [address] [place] [address] Care Team Providers Care Gi Tech Name Role Phone Rg Read MD Primary Care Provider [phone] Reason for Visit * Reason Onset Date Comments Medication Refill 11/28/2010 Encounter Details Date Type Department Care Team (Late st Contact Info) Description 11/28/2010 Refill [facility] Internal Medicine - [facility] [address] [address] Rg Read MD [address] [place] [phone] Social History Tobacco Use Types Packs/Day [...] on filedocumented in this encounter Care Teams Gi Tech Relationship Specialty Start Date End Date Rg Read MD [address] [place] [phone] PCP - General 03/12/01 10/29/22 documented as of this encounter
--- OUTSIDE RECORDS SUMMARY | 2024-07-12 08:33 | XMS_ITS | Encounter Summary ---
Author Organization [facility] Address [address] [place] [address] Care Team Providers Care Produce Team Member Name Role Phone Rg Read MD Primary Care Provider [phone] Encounter Details Date Type Department Care Team (Late st Contact Info) Description 03/18/2011 Abstract [facility] Internal Medicine - [facility] [address] [phone] Rg Read MD [address] [place] [phone] Social History Tobacco Use Types Packs/Day [...] on filedocumented in this encounter Care Teams Produce Team Member Relationship Specialty Start Date End Date Rg Read MD [address] [place] [phone] PCP - General 03/12/01 10/29/22 documented as of this encounter
--- OUTSIDE RECORDS SUMMARY | 2024-07-12 08:33 | XMS_ITS | Encounter Summary ---
Author Organization [facility] Address [address] [place] [address] Care Team Providers Care Hotel Assistant General Manager Name Role Phone Rg Read MD Primary Care Provider [phone] Reason for Visit * Reason Comments Follow Up Encounter Details Date Type Department Care Team (Latest Contact Info) Description 08/05/2011 2:20 PM DIRECTOR SURFACE TRANSPORTATION Office Visit [facility] Internal Medicine - [facility] [address] [facility] [address] [place] [phone] Rg Read MD 141 [facility] [address] [place] [phone] Osteoarth NOS-unspec; Pure hypercholesterolemia Social History Tobacco Use Types [...] Sign Reading Time Taken Comments Blood Pressure 120/62 08/05/2011 2:23 PM DIRECTOR SURFACE TRANSPORTATION Pulse 68 08/05/2011 2:23 PM DIRECTOR SURFACE TRANSPORTATION Temperature - - Respiratory Rate 12 08/05/2011 2:23 PM DIRECTOR SURFACE TRANSPORTATION Oxygen Saturation - - Inhaled Oxygen Concentration - - Weight 77.8 kg (171 lb 8 oz) 08/05/2011 2:23 PM DIRECTOR SURFACE TRANSPORTATION Height 170.2 cm (5' 7 ) 08/05/2011 2:23 PM DIRECTOR SURFACE TRANSPORTATION Body Mass Index 26.86 08/05/2011 2:23 PM DIRECTOR SURFACE TRANSPORTATION documented in this encounter Progress Notes * Rg Read MD - 08/05/2011 2:29 PM CST CC: The patient is here to follow up to assess whether the multiple medical problems are under reasonable control and multiple issues. Her arthritis medicine has stopped working. She has a chiropractor working on her low back. It is better for a day but then it is bad again. She is very stiff in the morning when she gets up and if she sits for any length of time she is very stiff after that. In terms of CAD: denies chest pain or pressure, no palpitations, denies any shortness of breath at rest or trouble breathing with activity. In terms of cholesterol, making some effort [...] no clubbing, cyanosis or ischemicchanges peripherally. A: Degenerative arthritis. I am going to change her from ketoprofen to Relafen and if not better in3-4 weeks call and I can add some Tramadol. CAD: based on history and exam, appears to be stable and therefore will continue current regimen ofexercise, diet, weight reduction, and/or medication in an effort to potentially reduce the risk of morbidity and mortality associated with recurring unstable coronary artery disease. Hypercholesterolemia: based on the most recent blood tests, reasonably well controlled. Continue same diet, exercise and medications in an effort to reduce risk of morbidity and mortality associated with hypercholesterolemia related coronary artery disease. Will obtain a blood sugar to assess [...] medications. Will communicate results to the patient. Will obtain LFT???s to assess any adverse impact from underlying medical conditions and/or medications. Will communicate results to the patient. follow up 4 months. DMB/me CTOR SURFACE TRANSPORTATION documented in this encounter Plan of Treatment Not on file documented as of this encounter Procedures Procedure Name Priority Date/Time Associated Diagnosis Comments SPECIMEN HOLD, BLOOD Routine 08/05/2011 2:25 AM DIRECTOR SURFACE TRANSPORTATION ALT Routine 08/05/2011 2:25 AM DIRECTOR SURFACE TRANSPORTATION AST Routine 08/05/2011 2:25 AM DIRECTOR SURFACE TRANSPORTATION LIPID PANEL Routine 08/05/2011 2:25 AM DIRECTOR SURFACE TRANSPORTATION BASIC METABOLIC PANEL Routine 08/05/2011 2:25 AM DIRECTOR SURFACE TRANSPORTATION documented in this encounter Results * BASIC METABOLIC PANEL (08/05/2011 2:25 AM DIRECTOR SURFACE TRANSPORTATION) Pathologist [facility] GLUCOSE 87 65 - 99 mg/dL [facility] Comment:Fasting reference in terval BUN 16 7 - 25 mg/dL [facility] CREATININE 0.94 0.60 - 1.18 mg/dL [facility] GFR 64 > OR = 60 mL/min/1 .73m2 [facility] GFR, 74 > OR = 60 mL/min/1 .73m2 [facility] . [facility] BUN/CREAT RATIO NOT APPLICABLE 6 - 22 (calc) [facility] SODIUM 143 135 - 146 mmol/L [facility]STICS . [facility] POTASSIUM 4.5 3.5 - 5.3 mmol/L [facility]AGNOSTICS . [facility] CHLORIDE 105 98 - 110 mmol/L [facility] . [facility] CO2 26 21 - 33 mmol/L [facility] DIAGNOSTICS . [facility] CALCIUM 9.9 8.6 - 10.2 mg/dL [facility] Comment: Test Performed at: [facility] ??[phone] LORNE ORDAZ DO,MPH 08/05/2011 2:25 AM DIRECTOR SURFACE TRANSPORTATION Rg Read MD CHEMISTRY ORDERABLES Performing Organization Address City/[facility] Phone Number INTERFACE SYSTEM Refer to clinic/hospital department [facility] [address] [place] [address] * ALT (08/05/2011 2:25 AM DIRECTOR SURFACE TRANSPORTATION) Pathologist [facility] ALT 25 6 - 40 U/L [facility] Comment: Test Performed at: [employer] ??[phone] LORNE ORDAZ DO,MPH 08/05/2011 2:25 AM DIRECTOR SURFACE TRANSPORTATION Rg Read MD CHEMISTRY ORDERABLES Performing Organization Address [facility] Phone Number INTERFACE SYSTEM Refer to clinic/hospital department [facility] [address] [place] [address] * AST (08/05/2011 2:25 AM DIRECTOR SURFACE TRANSPORTATION) Pathologist [facility] AST 22 10 - 35 U/L [facility] Comment: Test Performed at: [facility] [address] [place], [place] ??[phone] LORNE ORDAZ DO,MPH 08/05/2011 2:25 AM DIRECTOR SURFACE TRANSPORTATION Rg Read MD CHEMISTRY ORDERABLES Performing Organization Address [facility] Phone Number INTERFACE SYSTEM Refer to clinic/hospital department [facility] [address] [place] [address] * (ABNORMAL) LIPID PANEL (08/05/2011 2:25 AM DIRECTOR SURFACE TRANSPORTATION) CHOLESTEROL 202(H) 125 - 200 mg/dL [facility] [employer] [facility] Comment: Test Performed at: [facility] [address] [place] [address] ??[phone] LORNE ORDAZ DO,MPH HDL 60 > OR = 46 mg/dL [facility] [employer] [facility] TRIGLYCERIDE 194(H) <150 mg/dL [facility] [employer] [facility] LDL CALCULATED 103 <130 mg/dL (calc) [facility] [employer] [facility] Comment: Desirable range <100 mg/dL for patients with CHD or diabetes and <70 mg/dL for diabetic patients with known heart disease. CHOL/HDL RATIO 3.4 < OR = 5.0 (calc) [facility] [employer] [facility] 08/05/2011 2:25 AM DIRECTOR SURFACE TRANSPORTATION Rg Read MD CHEMISTRY ORDERABLES Performing Organization Address [facility] Phone Number INTERFACE SYSTEM Refer to clinic/hospital department [facility] [employer] [facility] [address] [place] [address] * SPECIMEN HOLD, BLOOD (08/05/2011 2:25 AM DIRECTOR SURFACE TRANSPORTATION) EXTRA TUBE RECEIVED [facility] SEE NOTE [facility] [employer] [facility] Comment: AN EXTRA TUBE WAS RECEIVED WITHOUT A TEST SPECIFIED. WE WILL HOLD THIS SPECIMEN IN OUR COLD STORAGE IN THE EVENT ADDITIONAL TESTING IS REQUESTED. ??PLEASE CONTACT YOUR LOCAL GARAGE ATTENDANT FOR FURTHER ASSISTANCE. Test Performed at: [facility] [address] [place], [place] ??[phone] LORNE ORDAZ DO,MPH 08/05/2011 2:25 AM DIRECTOR SURFACE TRANSPORTATION Rg Reda MD CHEMISTRY ORDERABLES INTERFACE SYSTEM Refer to clinic/hospital department [facility] [address] [address] documented in this encounter Visit Diagnoses Diagnosis Osteoarthrosis, unspecified whether generalized or localized, unspecified site Pure hypercholesterolemia documented in this encounter Care Teams Hotel Assistant General Manager Relationship Specialty Start Date End Date Rg Read MD [address] [facility] [address] [place] [phone] PCP - General 03/12/01 10/29/22 documented as of this encounter
--- OUTSIDE RECORDS SUMMARY | 2024-07-12 08:33 | XMS_ITS | Encounter Summary ---
Author Organization [facility] Address [address] [place] [address] Care Team Providers Care It Associate Name Role Phone Rg Read MD Primary Care Provider [phone] Reason for Visit * Reason Onset Date Comments New Prescription Request 11/02/2012 Encounter Details Date Type Department Care Team (Late st Contact Info) Description 11/02/2012 Telephone [facility] Internal Medicine - [address] [phone] Rg Read MD [address] [place] [phone] New Prescription Request Social History Tobacco Use Types Packs/Day Years [...] * Telephone Encounter - Raysa Aviles - 11/02/2012 1:30 PM CDT Patient would like something to help her sleep on a couple 10 hr flights she has coming up. Ambien per Dr. Read. Patient informed. documented in this encounter Plan of Treatment Not on file documented as of this encounter Visit Diagnoses Not on filedocumented in this encounter Care Teams It Associate Relationship Specialty Start Date End Date Rg Read MD [address] [place] [phone] PCP - General 03/12/01 10/29/22 documented as of this encounter
--- OUTSIDE RECORDS SUMMARY | 2024-07-12 08:33 | XMS_ITS | Encounter Summary ---
Author Organization [facility] Address [address] [place] [address] Care Team Providers Care Zinc Plating Machine Operator Name Role Phone Iza Read MD Primary Care Provider [phone] Reason for Visit * Reason Onset Date Comments Results 05/18/2013 Encounter Details Date Type Department Care Team (Late st Contact Info) Description 05/18/2013 Telephone [facility] Internal Medicine - [facility] [address] [facility] [address] [place] [phone] Iza Read MD 141 [facility] [address] [place] [phone] Results Social History Tobacco Use Types [...] Telephone Encounter - Agatha Bolaños RN - 05/18/2013 1:21 PM CDT LM with results, all great. Call for questions. * Telephone Encounter - Agatha Bolaños RN - 05/18/2013 1:21 PM CDT Message copied by AGATHA BOLAÑOS on ThuMay 18, 2013 1:21 PM ------ Message from: IZA READ Created: ThuMay 18, 2013 9:03 AM Non fasting great ------ documented in this encounter Plan of Treatment Not on file documented as of this encounter Visit Diagnoses Not on filedocumented in this encounter Care Teams Zinc Plating Machine Operator Relationship Specialty Start Date End Date Iza Read MD [address] [phone] PCP - General 03/12/01 10/29/22 documented as of this encounter
--- OUTSIDE RECORDS SUMMARY | 2024-07-12 08:33 | XMS_ITS | Encounter Summary ---
Author Organization [facility] Address [address] [place] [address] Care Team Providers Care Electric Detector Operator Name Role Phone Rg Read MD Primary Care Provider [phone] Reason for Visit * Reason Onset Date Comments Sore Throat 10/04/2010 Medication Refill 10/04/2010 Encounter Details Date Type Department Care Team (Late st Contact Info) Description 10/04/2010 Telephone [facility] Internal Medicine - [address] [phone] Rg Read MD 141 [facility] [address] [place] [phone] Sore Throat; Medication Refill Social History Tobacco Use Types [...] Notes * Telephone Encounter - Akosua Arce RN - 10/04/2010 3:12 PM CST Patient calling c/o sore throat and swollen gland (left). Lots of drainage. Started yesterday. Requesting abx be sent to pharm. New orders received. Informed rx sent to pharm. Call for further problems or if sxs persist. HER CCLC documented in this encounter Plan of Treatment Not on file documented as of this encounter Visit Diagnoses Not on filedocumented in this encounter Care Teams Electric Detector Operator Relationship Specialty Start Date End Date Rg Read MD [address] [phone] PCP - General 03/12/01 10/29/22 documented as of this encounter
--- OUTSIDE RECORDS SUMMARY | 2024-07-12 08:33 | XMS_ITS | Encounter Summary ---
Author Organization [facility] Address [address] [place] [address] Care Team Providers Care Pre Owned Sales Consultant Name Role Phone Rg Read MD Primary Care Provider [phone] Reason for Visit * Reason Onset Date Comments Medication Refill 01/25/2013 Encounter Details Date Type Department Care Team (Late st Contact Info) Description 01/25/[address] [facility] Internal Medicine - [address] [phone] Rg Read MD [address] [place] [phone] Social History Tobacco Use Types Packs/Day [...] * Telephone Encounter - Raysa Aviles - 01/25/2013 1:20 PM CDT Xanax refilled, ok per Dr. Read. documented in this encounter Plan of Treatment Not on file documented as of this encounter Visit Diagnoses Not on filedocumented in this encounter Care Teams Pre Owned Sales Consultant Relationship Specialty Start Date End Date Rg Read MD [address] [place] [phone] PCP - General 03/12/01 10/29/22 documented as of this encounter
--- OUTSIDE RECORDS SUMMARY | 2024-07-12 08:33 | XMS_ITS | Encounter Summary ---
Author Organization [facility] Address [address] [place] [address] Care Team Providers Care Timekeeper Name Role Phone Rg Read MD Primary Care Provider [phone] Reason for Visit * Reason Onset Date Comments Medication Refill 01/13/2011 Encounter Details Date Type Department Care Team (Late st Contact Info) Description 01/13/2011 Refill [facility] Internal Medicine - [address] [phone] Rg Read MD [address] [place] [phone] Social History Tobacco Use Types Packs/Day [...] Telephone Encounter - Agatha Bolaños RN - 01/13/2011 3:44 PM CDT Flexeril refill. documented in this encounter Plan of Treatment Not on file documented as of this encounter Visit Diagnoses Not on filedocumented in this encounter Care Teams Timekeeper Relationship Specialty Start Date End Date Rg Read MD [address] [place] [phone] PCP - General 03/12/01 10/29/22 documented as of this encounter
--- OUTSIDE RECORDS SUMMARY | 2024-07-12 08:33 | XMS_ITS | Encounter Summary ---
Author Organization [facility] Address [address] [place] [address] Care Team Providers Care Studio Camera Operator Name Role Phone Rg Read MD Primary Care Provider [phone] Reason for Visit * Reason Onset Date Comments Medication Refill 07/09/2011 Encounter Details Date Type Department Care Team (Late st Contact Info) Description 07/09/2011 Refill [facility] Internal Medicine - [address] [phone] Rg Read MD [address] [place] [phone] Social History Tobacco Use Types Packs/Day [...] * Telephone Encounter - Agatha Bolaños - 07/09/2011 12:53 PM CST Voltaren refill. AL AMALGAM PROCESSOR documented in this encounter Plan of Treatment Not on file documented as of this encounter Visit Diagnoses Not on filedocumented in this encounter Care Teams Studio Camera Operator Relationship Specialty Start Date End Date Rg Read MD [address] [place] [phone] PCP - General 03/12/01 10/29/22 documented as of this encounter
--- OUTSIDE RECORDS SUMMARY | 2024-07-12 08:33 | XMS_ITS | Encounter Summary ---
Author Organization [facility] Address [address] [place] [address] Care Team Providers Care Sluice Tender Name Role Phone Rg Read MD Primary Care Provider [phone] Reason for Visit * Reason Onset Date Comments Medication Refill 09/02/2012 Encounter Details Date Type Department Care Team (Late st Contact Info) Description 09/02/[address] [facility] Internal Medicine - [address] [phone] Rg Read MD [address] [place] [phone] Social History Tobacco Use Types Packs/Day [...] * Telephone Encounter - Agatha Bolaños - 09/02/2012 2:29 PM CST Alprazolam refill. ERCIAL PARTS PROFESSIONAL documented in this encounter Plan of Treatment Not on file documented as of this encounter Visit Diagnoses Not on filedocumented in this encounter Care Teams Sluice Tender Relationship Specialty Start Date End Date Rg Read MD [address] [place] [phone] PCP - General 03/12/01 10/29/22 documented as of this encounter
--- OUTSIDE RECORDS SUMMARY | 2024-07-12 08:33 | XMS_ITS | Encounter Summary ---
Author Organization [facility] Address [address] [place] [address] Care Team Providers Care Instructional Coach Name Role Phone Rg Read MD Primary Care Provider [phone] Reason for Visit * Reason Comments Groin Pain Encounter Details Date Type Department Care Team (Late st Contact Info) Description 05/17/2013 3:40 PM CDT Office Visit [facility] Internal Medicine - [address] [place] [phone] Rg Read MD [address] [place] [address] [place] [phone] Osteoarth NOS-unspec (Primary Dx); Pure hypercholesterolemia; Major depressive disorder, single episode, moderate; Arthritis, hip Social History Tobacco Use Types Packs/Day Years [...] Reading Time Taken Comments Blood Pressure 126/80 05/17/2013 3:58 PM CDT Pulse 64 05/17/2013 3:58 PM CDT Temperature - - Respiratory Rate 12 05/17/2013 3:58 PM CDT Oxygen Saturation - - Inhaled Oxygen Concentration - - Weight 75.5 kg (166 lb 8 oz) 05/17/2013 3:58 PM CDT Height 170.2 cm (5' 7 ) 05/17/2013 3:58 PM CDT Body Mass Index 26.08 05/17/2013 3:58 PM CDT documented in this encounter Progress Notes * Rg Read MD - 05/17/2013 4:31 PM CDT Cc: Tape malfunction. I am reconstructing this a few days later. My recollection is that she had some groin pain. I thought it was from arthritis. x-ray. Review the results and call the patient with results and coordinate any further care. DMB/me * Agatha Bolaños RN - 05/17/2013 4:00 PM CDT Encouraged Mammogram and Bone Density. documented in this encounter Plan of Treatment Not on file documented as of this encounter Procedures Procedure Name Priority Date/Time Associated Diagnosis Comments SPECIMEN HOLD, BLOOD Routine 05/17/2013 4:00 AM CDT LIPID PANEL Routine 05/17/2013 4:00 AM CDT Pure hypercholesterolemia BASIC METABOLIC PANEL Routine 05/17/2013 4:00 AM CDT Pure hypercholesterolemia documented in this encounter Results * SPECIMEN HOLD, BLOOD (05/17/2013 4:00 AM CDT) EXTRA TUBE RECEIVED [facility] SEE NOTE [employer] [facility] Comment: AN EXTRA TUBE WAS RECEIVED WITHOUT A TEST SPECIFIED. WE WILL HOLD THIS SPECIMEN IN OUR COLD STORAGE IN THE EVENT ADDITIONAL TESTING IS REQUESTED. ??PLEASE CONTACT YOUR LOCAL HANDICAPPER HARNESS RACING FOR FURTHER ASSISTANCE. Test Performed at: [facility] [id number] [place] [address] ??[phone] LORNE ORDAZ DO,MPH 05/17/2013 4:00 AM CDT 05/18/2013 4:53 AM CDT Rg Read MD CHEMISTRY ORDERABLES INTERFACE SYSTEM Refer to clinic/hospital department [facility] [address] [place] [address] * (ABNORMAL) LIPID PANEL (05/17/2013 4:00 AM CDT) [facility] CHOLESTEROL 173 125 - 200 mg/dL [facility] Comment: Test Performed at: [facility] [address] [facility] [address] ??[phone] LORNE ORDAZ DO,MPH HDL 59 > OR = 46 mg/dL [facility] TRIGLYCERIDE 244(H) <150 mg/dL [facility] LDL CALCULATED 65 <130 mg/dL (calc) [facility] Comment: Desirable range <100 mg/dL for patients with CHD or diabetes and <70 mg/dL for diabetic patients with known heart disease. CHOL/HDL RATIO 2.9 < OR = 5.0 (calc) [facility] [employer] [facility] TOTAL NON-HDL CHOL(LDL+VLDL) 114 mg/dL (calc) [facility] Comment: Target for non-HDL cholesterol is 30 mg/dL higher than LDL cholesterol target. Blood specimen (specimen) 05/17/2013 4:00 AM CDT Rg Read MD CHEMISTRY ORDERABLES INTERFACE SYSTEM Refer to clinic/hospital department [facility] [address] [place] [address] * (ABNORMAL) BASIC METABOLIC PANEL (05/17/2013 4:00 AM CDT) [facility] GLUCOSE 98 65 - 99 mg/dL [facility] [employer] [facility] Comment:Fasting reference in terval BUN 20 7 - 25 mg/dL [facility] CREATININE 0.96 0.50 - 0.99 mg/dL [facility] Comment: For patients >49 years of age, the reference limit for Creatinine is approximately 13% higher for people identified as -Slovak. GFR 62 > OR = 60 mL/min/1 .73m2 [facility] [employer] [facility] GFR, 71 > OR = 60 mL/min/[address] [facility] BUN/CREAT RATIO NOT APPLICABLE 6 - 22 (calc) [facility] SODIUM 141 135 - 146 mmol/L [facility] POTASSIUM 4.4 3.5 - 5.3 mmol/L [facility] CHLORIDE 102 98 - 110 mmol/L [facility] CO2 31(H) 19 - 30 mmol/L [facility] CALCIUM 10.2 8.6 - 10.4 mg/dL [facility] Comment: Test Performed at: [facility] [address] [address] [place] ??[phone] LONRE ORDAZ DO,MPH Blood specimen (specimen) 05/17/2013 4:00 AM CDT Rg Read MD CHEMISTRY ORDERABLES INTERFACE SYSTEM Refer to clinic/hospital department [facility] . [address] [address] documented in this encounter Visit Diagnoses Diagnosis Osteoarth NOS-unspec- Primary Osteoarthrosis, unspecified whether generalized or localized, unspecified site Pure hypercholesterolemia Major depressive disorder, single episode, moderate Arthritis, hip Unspecified arthropathy, pelvic region and thigh documented in this encounter Care Teams Instructional Coach Relationship Specialty Start Date End Date Rg Read MD [address] [phone] PCP - General 03/12/01 10/29/22 documented as of this encounter
--- OUTSIDE RECORDS SUMMARY | 2024-07-12 08:33 | XMS_ITS | Encounter Summary ---
Author Organization [facility] Address [address] [place] [address] Care Team Providers Care Ballast Cleaning Machine Operator Name Role Phone Rg Read MD Primary Care Provider [phone] Reason for Visit * Reason Comments Follow Up Encounter Details Date Type Department Care Team (Latest Contact Info) Description 06/24/2011 3:40 PM AGRICULTURAL PRODUCE SORTER Office Visit [facility] Internal Medicine - [facility] [address] [facility] [address] [place] [phone] Rg Read MD 141 [facility] [address] [place] [phone] Osteoarth NOS-unspec; Pure hypercholesterolemia Social History [...] Sign Reading Time Taken Comments Blood Pressure 136/72 06/24/2011 3:54 PM AGRICULTURAL PRODUCE SORTER Pulse 66 06/24/2011 3:54 PM AGRICULTURAL PRODUCE SORTER Temperature - - Respiratory Rate 14 06/24/2011 3:54 PM AGRICULTURAL PRODUCE SORTER Oxygen Saturation - - Inhaled Oxygen Concentration - - Weight 76.9 kg (169 lb 8 oz) 06/24/2011 3:54 PM AGRICULTURAL PRODUCE SORTER Height 170.2 cm (5' 7 ) 06/24/2011 3:54 PM AGRICULTURAL PRODUCE SORTER Body Mass Index 26.55 06/24/2011 3:54 PM AGRICULTURAL PRODUCE SORTER documented in this encounter Progress Notes * Rg Read MD - 06/24/2011 4:11 PM CST CC: The patient is here to follow up to assess whether the multiple medical problems are under reasonable control and multiple issues. Overall she said she is doing well. In terms of cholesterol, making some effort on diet in reducing fat, some effort at exercise and aware of the need to lose weight. 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 Arthritis, knees and low back are the big areas. Joelle does a reasonable job. Alprazolam helps her sleep. No change in bowel habits. No constipation, [...] no clubbing, cyanosis or ischemicchanges peripherally. A: Hypercholesterolemia: based on the most recent blood tests, reasonably well controlled. Continuesame diet, exercise and medications in an effort to reduce risk of morbidity and mortality associated with hypercholesterolemia related coronary artery disease. She would like to hold off on labs until she gets on Medicare. Microvascular angina. Continue Cardizem. Degenerative arthritis, stable, continue same regimen. follow up 4 months. DMB/me CULTURAL PRODUCE SORTER documented in this encounter Plan of Treatment Not on file documented as of this encounter Visit Diagnoses Diagnosis Osteoarthrosis, unspecified whether generalized or localized, unspecified site Pure hypercholesterolemia documented in this encounter Care Teams Ballast Cleaning Machine Operator Relationship Specialty Start Date End Date Rg Read MD [address] [place] [address] [place] [phone] PCP - General 03/12/01 10/29/22 documented as of this encounter
--- OUTSIDE RECORDS SUMMARY | 2024-07-12 08:33 | XMS_ITS | Encounter Summary ---
Author Organization [facility] Address [address] [place] [address] [address] Team Providers Care [address] Shaft And Steering Post Repairer Name Role Phone Rg Read MD Primary Care Provider [phone] Reason for Referral * Outpatient Services (Routine) - Closed Specialty Diagnoses / Procedures Referred By Gigi orosco Referred To Contact MRI Diagnoses Sensorineural hearing loss, unspecified Procedures MRI BRAIN W WO CONTRAST Tee Cobos MD [address] [address] Referral ID Status Reason Start Date Expiration Date Visits Re quested Visits Authorized [id number] Closed 04/30/2012 05/30/2012 1 1 Reason for Visit * Outpatient Services (Routine) - Closed Specialty Diagnoses / Procedures Referred By Gigi orosco Referred To Contact MRI Diagnoses Sensorineural hearing loss, unspecified Procedures MRI BRAIN W WO CONTRAST Tee Cobos MD [address] [address] Referral ID Status Reason Start Date Expiration Date Visits Re quested Visits Authorized [id number] Closed 04/30/2012 05/30/2012 1 1 Encounter Details Date Type Department Care Team (Latest Contact Info) Description 04/30/2012 2:48 PM CDT - 04/30/2012 11:59 PM CDT Hospital Encounter [facility] [address] [place] [phone] Tee Cobos MD [address] [place] [phone] Discharge Disposition: Home or Self Care Social [...] Sign Reading Time Taken Comments Blood Pressure - - Pulse - - Temperature - - Respiratory Rate - - Oxygen Saturation - - Inhaled Oxygen Concentration - - Weight 74.8 kg (165 lb) 04/30/2012 3:33 PM CDT Height - - Body Mass Index 25.84 03/30/2012 2:13 PM CDT documented in this encounter Medications at Time of Discharge Medication Sig Dispensed Refills Start Date End Date ketoprofen (ORUDIS) 75 mg Oral capsule Take 1 Cap by mouth 2 times daily with meals. 60 Cap 3 03/31/2012 07/29/2012 cyclobenzaprine (FLEXERIL) 10 mg Oral tablet Take 1 Tab by mouth 3 times daily as needed for Spasm. 30 Tab 0 11/13/2011 05/17/2013 ALPRAZolam (XANAX) 0.25 mg Oral tablet Take 1 Tab by mouth 2 times daily as needed for Anxiety. 60 Tab 0 06/24/2011 09/02/2012 diltiazem CD 24 hour (CARDIZEM CD) 180 mg Oral capsule Take 1 Cap by mouth daily. 04/06/2014 pravastatin (PRAVACHOL) 10 mg Oral Tab Take 1 Tab by mouth Daily LATE. 06/26/2014 documented as of this encounter Miscellaneous Notes * Scanned Form - Stl Scanning, Him - 05/05/2012 6:50 PM CDT documented in this encounter Plan of Treatment Not on file documented as of this encounter Procedures Procedure Name Priority Date/Time Associated Diagnosis Comments MRI BRAIN W WO CONTRAST Routine 04/30/2012 3:51 PM CDT Sensorineural hearing loss, unspecified POC CREATININE Routine 04/30/2012 3:40 PM CDT documented in this encounter Results * MRI BRAIN W WO CONTRAST (04/30/2012 3:51 PM CDT) Anatomical Region Laterality Modality Head Magnetic Resonan ce 04/30/2012 3:00 PM CDT Impressions 05/03/2012 9:34 AM CDT IMPRESSION: Chronic small vessel changes without an acute abnormality. Unremarkable imaging of the internal auditory canals. ? Narrative 05/03/2012 9:34 AM CDT MRI OF THE BRAIN WITH AND WITHOUT IV CONTRAST INCLUDING THE IACS, 04/30/2012 HISTORY: Sensorineural hearing loss. FINDINGS: MRI of the brain including imaging of the internal auditory canals was done before and after gadolinium which was given at half dose due to mild renal insufficiency at the time of the exam. No prior imaging is available for comparison at this time. There is no restricted diffusion. There is no intracranial hemorrhage, and there is no parenchymal mass or edema. There are mild multifocal subcortical small vessel changes bilaterally in the hemispheres. There is no evidence of significant cortical infarction/tissue loss, and there is no significant change in the posterior fossa with mild T2 signal abnormality in the anterior left paramedian jessica. There is no hydrocephalus or extra-axial collection. There is no significant mastoid air cell disease. There is good visualization of nerves VII and VIII complexes with symmetry, and there is no gross abnormality of the inner ears. After giving gadolinium there is no abnormal enhancement involving the brain or the internal auditory canals. Procedure Note Esdras Cox MD - 05/03/2012 MRI OF THE BRAIN WITH AND WITHOUT IV CONTRAST INCLUDING THE IACS, 04/30/2012 HISTORY: Sensorineural hearing loss. FINDINGS: MRI of the brain including imaging of the internal auditory canals was done before and after gadolinium which was given at half dose due to mild renal insufficiency at the time of the exam. No prior imaging is available for comparison at this time. There is no restricted diffusion. There is no intracranial hemorrhage, and there is no parenchymal mass or edema. There are mild multifocal subcortical small vessel changes bilaterally in the hemispheres. There is no evidence of significant cortical infarction/tissue loss, and there is no significant change in the posterior fossa with mild T2 signal abnormality in the anterior left paramedian jessica. There is no hydrocephalus or extra-axial collection. There is no significant mastoid air cell disease. There is good visualization of nerves VII and VIII complexes with symmetry, and there is no gross abnormality of the inner ears. After giving gadolinium there is no abnormal enhancement involving the brain or the internal auditory canals. IMPRESSION IMPRESSION: Chronic small vessel changes without an acute abnormality. Unremarkable imaging of the internal auditory canals. Tee Cobos MD MR ORDERABLES * (ABNORMAL) POC CREATININE (04/30/2012 3:40 PM CDT) CREATININE POC 1.1 0.6 - 1.3 mg/dL [facility] Comment: The calculation for the estimated GFR on the i-STAT POC instrument has been changed to correspond to the IDMS-traceable MDRD Study, upon the recommendation of the thermite welder of the i-STAT instrument. ??The change was effective in our laboratory 07/03/2008. ??The impact of this change to the estimated GFR is minimal. ??This calculation is used by the main laboratory methodology also. GFR, 60 >=60 mL/min/1. 7 sq meter [facility] CLIA LICENSE [id number] 1 [facility] GFR 50(L) >=60 mL/min/1. 7 sq meter [facility] Blood specimen (specimen) 04/30/2012 3:40 PM CDT 04/30/2012 3:40 PM CDT Tee Cobos MD POINT OF CARE TESTIN G [facility] CLIA# [id number] [address] [place] [address] documented in this encounter Visit Diagnoses Diagnosis Sensorineural hearing loss, unspecified documented in this encounter Administered Medications Inactive Administered Medications - up to 3 most recent administrations Medication Order MAR Action Action Date Dose Rate Site gadoversetamide (OPTIMARK) 5 mmol/10 mL injection 7 mL, IV, INTRA-PROCEDURE ONCE, 1 dose, Starting on Thu04/30/12 at 1550, Until Thu04/30/12 at 1551, Routine Given 04/30/2012 3:51 PM CDT 7 mL documented in this encounter Care Teams Drive Shaft And Steering Post Repairer Relationship Specialty Start Date End Date Rg Read MD 141 [facility] [address] [place] [phone] PCP - General 03/12/01 10/29/22 documented as of this encounter
--- OUTSIDE RECORDS SUMMARY | 2024-07-12 08:33 | XMS_ITS | Encounter Summary ---
Author Organization [facility] Address [address] [place] [address] Care Team Providers Care Pollution Control Technician Name Role Phone Rg Read MD Primary Care Provider Reason for Visit * Reason Onset Date Comments Upper Respiratory Symptoms 06/03/2011 Encounter Details Date Type Department Care Team (Late st Contact Info) Description 06/03/2011 Telephone [facility] Internal Medicine - [facility] [address] [facility] [address] [place] [phone] Rg Read MD 141 [facility] [address] [place] [phone] Upper Respiratory Symptoms Social History Tobacco [...] Telephone Encounter - Agatha Bolaños RN - 06/03/2011 3:55 PM CST Pt c/o uri sxs, s/t, sinus congestion, pressure. She is requesting antibiotic. Order obtained for Zpak, instructed patient to use otc symptom relief. Pt was told she must make appt in near future before any further refills or medications can be given. LING MACHINE TENDER documented in this encounter Plan of Treatment Not on file documented as of this encounter Visit Diagnoses Not on filedocumented in this encounter Care Teams Pollution Control Technician Relationship Specialty Start Date End Date Rg Read MD [address] [phone] PCP - General 03/12/01 10/29/22 documented as of this encounter
--- OUTSIDE RECORDS SUMMARY | 2024-07-12 08:33 | XMS_ITS | Encounter Summary ---
Author Organization [facility] Address [address] [place] [address] Care Team Providers Care Eye Surgeon Name Role Phone Rg Read MD Primary Care Provider [phone] Reason for Visit * Reason Onset Date Comments Erroneous encounter-disregard 08/26/2012 Encounter Details Date Type Department Care Team (Late st Contact Info) Description 08/26/2012 [facility] Internal Medicine - [facility] [address] [phone] Rg Read MD [address] [place] [phone] Social History Tobacco Use Types Packs/Day [...] on filedocumented in this encounter Care Teams Eye Surgeon Relationship Specialty Start Date End Date Rg Read MD [address] [place] [phone] PCP - General 03/12/01 10/29/22 documented as of this encounter
--- OUTSIDE RECORDS SUMMARY | 2024-07-12 08:33 | XMS_ITS | Encounter Summary ---
Author Organization [facility] Address [address] [place] [address] Care Team Providers Care Carpentry Specialist Name Role Phone Rg Read MD Primary Care Provider [phone] Reason for Visit * Reason Onset Date Comments Medication Review 08/19/2011 Encounter Details Date Type Department Care Team (Late st Contact Info) Description 08/19/2011 Telephone [facility] Internal Medicine - [address] [phone] Rg Read MD [address] [place] [phone] Medication Review Social History Tobacco Use [...] * Telephone Encounter - Raysa Aviles - 08/19/2011 3:58 PM CST Patient would like substitute for Relafen as it is causing diarrhea. Ketoprofen per Dr. Read. AlsoFlexeril refilled. LE THERAPIST documented in this encounter Plan of Treatment Not on file documented as of this encounter Visit Diagnoses Not on filedocumented in this encounter Care Teams Carpentry Specialist Relationship Specialty Start Date End Date Rg Read MD [address] [place] [phone] PCP - General 03/12/01 10/29/22 documented as of this encounter
--- OUTSIDE RECORDS SUMMARY | 2024-07-12 08:33 | XMS_ITS | Encounter Summary ---
Author Organization [facility] Address [address] [place] [address] Care Team Providers Care Tip Cementer Name Role Phone Iza Read MD Primary Care Provider [phone] Reason for Visit * Reason Onset Date Comments Results 03/31/2012 Encounter Details Date Type Department Care Team (Late st Contact Info) Description 03/31/[address] [facility] Internal Medicine - [facility] 141 [facility] [address] [place] [phone] Iza Read MD 141 [facility] [address] [place] [phone] Results Social History Tobacco Use Types [...] * Telephone Encounter - Agatha Bolaños - 03/31/2012 10:57 AM CDT Pt notified with results of sinus film an c-spine film. She agrees to begin Amoxil for sinus infection. Pt states she has not taken Orudis in a long time, she stopped because it was no longer needed. * Telephone Encounter - Agatha Bolaños - 03/31/2012 10:56 AM CDT Message copied by AGATHA BOLAÑOS on ThuMar 31, 2012 10:56 AM ------ Message from: IZA READ Created: ThuMar 31, 2012 10:23 AM Significant amount of arthritis which undoubtedly is contributing to her neck/headaches; is she still taking the orudis? documented in this encounter Plan of Treatment Not on file documented as of this encounter Visit Diagnoses Not on filedocumented in this encounter Care Teams Tip Cementer Relationship Specialty Start Date End Date Iza Read MD 141 [facility] [address] [place] [phone] PCP - General 03/12/01 10/29/22 documented as of this encounter
--- OUTSIDE RECORDS SUMMARY | 2024-07-12 08:33 | XMS_ITS | Encounter Summary ---
Author Organization [facility] Address [address] [place] [address] Care Team Providers Care Chief Technology Officer Name Role Phone Rg Read MD Primary Care Provider [phone] Reason for Visit * Reason Onset Date Comments Dog Bite 03/18/2013 Encounter Details Date Type Department Care Team (Late st Contact Info) Description 03/18/[address] [facility] Internal Medicine - [facility] [address] [facility] [address] [place] [phone] Rg Read MD 141 [facility] [address] [place] [phone] Dog Bite Social History Tobacco Use Types Packs/Day Years [...] Telephone Encounter - Akosua Arce RN - 03/18/2013 3:50 PM CDT Patient calling states her dog bit her on her right index finger. States she is UTD on TDAP. Stateshad one about 4 years ago after having a cat bite. Finger is swollen and tender. New orders received. Informed clean area, may use antibiotic ointment topically also. Po abx sent to pharm. Call for problems. documented in this encounter Plan of Treatment Not on file documented as of this encounter Visit Diagnoses Not on filedocumented in this encounter Care Teams Chief Technology Officer Relationship Specialty Start Date End Date Rg Read MD [address] [place] [phone] PCP - General 03/12/01 10/29/22 documented as of this encounter
--- OUTSIDE RECORDS SUMMARY | 2024-07-12 08:33 | XMS_ITS | Encounter Summary ---
Author Organization [facility] Address [address] [place] [address] Care Team Providers Care Business Information Manager Name Role Phone Rg Read MD Primary Care Provider Reason for Visit * Reason Onset Date Comments Medication Refill 07/29/2012 Encounter Details Date Type Department Care Team (Late st Contact Info) Description 07/29/2012 Refill [facility] Internal Medicine - [address] [phone] Rg Read MD [address] [place] [phone] Social History Tobacco Use Types Packs/Day [...] * Telephone Encounter - Agatha Bolaños - 07/29/2012 3:31 PM CST Voltaren refill. RATING MACHINE OPERATOR documented in this encounter Plan of Treatment Not on file documented as of this encounter Visit Diagnoses Not on filedocumented in this encounter Care Teams Business Information Manager Relationship Specialty Start Date End Date Rg Read MD [address] [place] [phone] PCP - General 03/12/01 10/29/22 documented as of this encounter
--- OUTSIDE RECORDS SUMMARY | 2024-07-12 08:33 | XMS_ITS | Encounter Summary ---
Author Organization [facility] Address [address] [place] [address] Care Team Providers Care Acrobatic Rigger Name Role Phone Rg Read MD Primary Care Provider [phone] Reason for Visit * Reason Comments Other wanting medication f or anxiety / depression Encounter Details Date Type Department Care Team (Late st Contact Info) Description 05/13/2012 2:40 PM CDT Office Visit [facility] Internal Medicine - [address] [place] [phone] Rg Read MD 141 [facility] [address] [place] [phone] Major depressive disorder, single episode, moderate (Primary Dx) Social History Tobacco Use Types [...] Sign Reading Time Taken Comments Blood Pressure 128/82 05/13/2012 2:35 PM CDT Pulse 80 05/13/2012 2:35 PM CDT Temperature - - Respiratory Rate 12 05/13/2012 2:35 PM CDT Oxygen Saturation - - Inhaled Oxygen Concentration - - Weight 76.7 kg (169 lb) 05/13/2012 2:35 PM CDT Height 170.2 cm (5' 7 ) 05/13/2012 2:35 PM CDT Body Mass Index 26.47 05/13/2012 2:35 PM CDT documented in this encounter Progress Notes * Akosua Arce - 05/13/2012 2:36 PM CDT Encouraged BD. * Rg Read MD - 05/13/2012 2:34 PM CDT CC: The patient is here to follow up to assess whether the multiple medical problems are under reasonable control and multiple issues. She is very discouraged and down about this whole tinnitus thing. PFS: Both preceding this visit and during [...] no clubbing, cyanosis or ischemicchanges peripherally. A: Reactive depression. Zoloft 50mg qd ?? qd x 10 days and up to a full tablet after that. Went over potential side effects and how the medicine works. Encouraged patient to obtain an annual flu [...] discuss results with the patient. follow up 6 weeks. DMB/me documented in this encounter Plan of Treatment Not on file documented as of this encounter Visit Diagnoses Diagnosis Major depressive disorder, single episode, moderate- Primary documented in this encounter Care Teams Acrobatic Rigger Relationship Specialty Start Date End Date Rg Read MD 141 [facility] [address] [place] [phone] PCP - General 03/12/01 10/29/22 documented as of this encounter
--- OUTSIDE RECORDS SUMMARY | 2024-07-12 08:33 | XMS_ITS | Encounter Summary ---
Author Organization [facility] Address [address] [place] [address] Care Team Providers Care Capacity Manager Name Role Phone Rg Read MD Primary Care Provider [phone] Reason for Visit * Reason Onset Date Comments Medication Refill 05/16/2013 Encounter Details Date Type Department Care Team (Late st Contact Info) Description 05/16/2013 Refill [facility] Internal Medicine - [address] [phone] Rg Read MD [address] [place] [phone] Social History Tobacco Use Types Packs/Day [...] * Telephone Encounter - Raysa Aviles - 05/16/2013 12:48 PM CDT Ketoprofen refilled, ok per Dr. Read. documented in this encounter Plan of Treatment Not on file documented as of this encounter Visit Diagnoses Not on filedocumented in this encounter Care Teams Capacity Manager Relationship Specialty Start Date End Date Rg Read MD [address] [place] [phone] PCP - General 03/12/01 10/29/22 documented as of this encounter
--- OUTSIDE RECORDS SUMMARY | 2024-07-12 08:34 | XMS_ITS | Encounter Summary ---
Author Organization [facility] Address [address] [place] [address] Care Team Providers Care Job Forwarder Name Role Phone Rg Read MD Primary Care Provider [phone] Encounter Details Date Type Department Care Team (Late st Contact Info) Description 11/23/2006 Outpatient Historical [facility] Internal Medicine - [address] [phone] Rg Read MD [address] [place] [phone] Social History Tobacco Use Types Packs/Day Years Used Date Smoking Tobacco: Never Assessed Sex and Gender Information Value Date Recorded Sex Assigned at Not on file Gender Identity Not on file Sexual Orientation Not on file documented as of this encounter Plan of Treatment Not on file documented as of this encounter Visit Diagnoses Not on filedocumented in this encounter Care Teams Job Forwarder Relationship Specialty Start Date End Date Rg Read MD [address] [place] [phone] PCP - General 03/12/01 10/29/22 documented as of this encounter
--- OUTSIDE RECORDS SUMMARY | 2024-07-12 08:34 | XMS_ITS | Encounter Summary ---
Author Organization [facility] Address [address] [place] [address] Care Team Providers Care Business Support Associate Name Role Phone Rg Read MD Primary Care Provider [phone] Reason for Visit * Reason Comments Knee Pain Hip Pain Encounter Details Date Type Department Care Team (Late st Contact Info) Description 05/17/2009 4:20 PM CDT Office Visit [facility] Internal Medicine - [facility] [address] [facility] [address] [place] [phone] Rg Read MD [address] [facility] [address] [place] [phone] Allergic Rhinitis, Cause Unspecified; Osteoarth NOS-Unspec Social History Tobacco Use Types Packs/Day Years [...] Sign Reading Time Taken Comments Blood Pressure 114/72 05/17/2009 12:35 PM CDT Pulse 62 05/17/2009 12:35 PM CDT Temperature - - Respiratory Rate 12 05/17/2009 12:35 PM CDT Oxygen Saturation - - Inhaled Oxygen Concentration - - Weight 77.1 kg (170 lb) 05/17/2009 12:35 PM CDT Height 167.6 cm (5' 6 ) 05/17/2009 12:35 PM CDT Body Mass Index 27.44 05/17/2009 12:35 PM CDT documented in this encounter Progress Notes * Rg Read MD - 05/17/2009 4:37 PM CDT CC: Left knee pain, right hip and SIJ pain. She is doing well otherwise. She saw the seismograph computer this year, had a bone density, mammogram and pelvic exam earlier this year. PFS: Both preceding this visit and during [...] no accessory muscles utilized. Cardiovascular: Heart regular rhythm without ectopy or murmur, carotids without bruits, upstroke normal, no JVD, lower extremities without edema or varicosities. GI: Abdomen soft, without masses, nontender, no liver or spleen enlargement. Musculoskeletal: she has palpable tenderness over the right SIJ, right greater trochanter and left knee has some crepitations. A: Degenerative arthritis left knee. After discussing options, the patient is agreeable and under aseptic conditions I injected 40mg of kenalog. Possibly the right side is because she has been favoring the left side. Sulindac 200 bid p.c. take it for a couple of months and see how she does. She declined lab because she got it a couple of months ago. f/u prn. DMB/me * Agatha Bolaños - 05/17/2009 4:19 PM CDT Meds reviewed and updated, Labs not drawn today, pt states she had this done through cardiology 2 mos mos ago. documented in this encounter Plan of Treatment Not on file documented as of this encounter Visit Diagnoses Diagnosis Allergic rhinitis, cause unspecified Osteoarthrosis, unspecified whether generalized or localized, unspecified site documented in this encounter Care Teams Business Support Associate Relationship Specialty Start Date End Date Rg Read MD [address] [place] [address] [place] [phone] PCP - General 03/12/01 10/29/22 documented as of this encounter
--- OUTSIDE RECORDS SUMMARY | 2024-07-12 08:34 | XMS_ITS | Encounter Summary ---
Author Organization [facility] Address [address] [place] [address] Care Team Providers Care Forgesmith Name Role Phone Rg Read MD Primary Care Provider [phone] Encounter Details Date Type Department Care Team (Late st Contact Info) Description 07/02/2010 Abstract [facility] Internal Medicine - [facility] [address] [address] Rg Read MD [address] [place] [phone] Social History Tobacco Use Types Packs/Day [...] on filedocumented in this encounter Care Teams Forgesmith Relationship Specialty Start Date End Date Rg Read MD [address] [place] [phone] PCP - General 03/12/01 10/29/22 documented as of this encounter
--- OUTSIDE RECORDS SUMMARY | 2024-07-12 08:34 | XMS_ITS | Encounter Summary ---
Author Organization [facility] Address [address] [place] [address] Care Team Providers Care Parts Clerk Plant Maintenance Name Role Phone Rg Read MD Primary Care Provider [phone] Reason for Visit * Reason Onset Date Comments Medication Refill 01/21/2010 Encounter Details Date Type Department Care Team (Late st Contact Info) Description 01/21/[address] [facility] Internal Medicine - [address] [address] Rg Read MD [address] [place] [phone] Social History Tobacco Use Types Packs/Day [...] Telephone Encounter - Agatha Bolaños RN - 01/21/2010 11:29 AM CDT Xanax refill. documented in this encounter Plan of Treatment Not on file documented as of this encounter Visit Diagnoses Not on filedocumented in this encounter Care Teams Parts Clerk Plant Maintenance Relationship Specialty Start Date End Date Rg Read MD [address] [place] [phone] PCP - General 03/12/01 10/29/22 documented as of this encounter
--- OUTSIDE RECORDS SUMMARY | 2024-07-12 08:34 | XMS_ITS | Encounter Summary ---
Author Organization [facility] Address [address] [place] [address] Care Team Providers Care Accounting System Expert Name Role Phone Rg Read MD Primary Care Provider [phone] Encounter Details Date Type Department Care Team (Late st Contact Info) Description 03/15/[address] [facility] Internal Medicine - [address] [phone] Rg Read MD [address] [place] [address] Social History Tobacco Use Types Packs/Day Years Used Date Smoking Tobacco: Never Assessed Sex and Gender Information Value Date Recorded Sex Assigned at Not on file Gender Identity Not on file Sexual Orientation Not on file documented as of this encounter Plan of Treatment Not on file documented as of this encounter Visit Diagnoses Not on filedocumented in this encounter Care Teams Accounting System Expert Relationship Specialty Start Date End Date Rg Read MD [address] [place] [address] PCP - General 03/12/01 10/29/22 documented as of this encounter
--- OUTSIDE RECORDS SUMMARY | 2024-07-12 08:34 | XMS_ITS | Encounter Summary ---
Author Organization [facility] Address [address] [place] [address] Care Team Providers Care Booking Prizer Name Role Phone Rg Read MD Primary Care Provider [phone] Reason for Visit * Reason Onset Date Comments Medication Refill 05/30/2010 Encounter Details Date Type Department Care Team (Late st Contact Info) Description 05/30/2010 Refill [facility] Internal Medicine - [facility] [address] [address] Rg Read MD [address] [place] [phone] Social History Tobacco Use Types Packs/Day [...] on filedocumented in this encounter Care Teams Booking Prizer Relationship Specialty Start Date End Date Rg Read MD [address] [place] [phone] PCP - General 03/12/01 10/29/22 documented as of this encounter
--- OUTSIDE RECORDS SUMMARY | 2024-07-12 08:34 | XMS_ITS | Encounter Summary ---
Author Organization [facility] Address [address] [place] [address] Care Team Providers Care Plastic And Reconstructive Surgeon Name Role Phone Iza Read MD Primary Care Provider [phone] Reason for Visit * Reason Onset Date Comments Results 12/26/2009 Encounter Details Date Type Department Care Team (Late st Contact Info) Description 12/26/2009 Telephone [facility] Internal Medicine [address] [address] Iza Read MD [address] [place] [address] [place] [phone] Results Social History Tobacco Use Types [...] * Telephone Encounter - Agatha Bolaños - 12/26/2009 5:53 PM CDT Pt notified, states she is feeling much better, will finish out the Prednisone and call if symptomspersist or worsen. 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
--- OUTSIDE RECORDS SUMMARY | 2024-07-12 08:34 | XMS_ITS | Encounter Summary ---
Author Organization [facility] Address [address] [place] [address] Care Team Providers Care Analytical Manager Name Role Phone gR Read MD Primary Care Provider [phone] Encounter Details Date Type Department Care Team (Late st Contact Info) Description 04/01/2005 Outpatient Historical [facility] [place] [address] [place] [address] Juan David Roman MD NO ADDRESS ON FILE Social History Tobacco Use Types Packs/Day Years Used Date Smoking Tobacco: Never Assessed Sex and Gender Information Value Date Recorded Sex Assigned at Not on file Gender Identity Not on file Sexual Orientation Not on file documented as of this encounter Plan of Treatment Not on file documented as of this encounter Visit Diagnoses Not on filedocumented in this encounter Care Teams Analytical Manager Relationship Specialty Start Date End Date Rg Read MD [address] [place] [address] [address] [place] [address] PCP - General 03/12/01 10/29/22 documented as of this encounter
--- OUTSIDE RECORDS SUMMARY | 2024-07-12 08:34 | XMS_ITS | Encounter Summary ---
Author Organization [facility] Address [address] [place] [address] Care Team Providers Care Boat Rigger Name Role Phone Rg Read MD Primary Care Provider [phone] Reason for Visit * Reason Onset Date Comments Medication Refill 02/23/2009 Encounter Details Date Type Department Care Team (Late st Contact Info) Description 02/23/2009 Refill [facility] Internal Medicine - [address] [address] Rg Read MD [address] [place] [phone] Social History Tobacco Use Types Packs/Day Years Used Date Smoking Tobacco: Never Assessed Sex and Gender Information Value Date Recorded Sex Assigned at Not on file Gender Identity Not on file Sexual Orientation Not on file documented as of this encounter Plan of Treatment Not on file documented as of this encounter Visit Diagnoses Not on filedocumented in this encounter Care Teams Boat Rigger Relationship Specialty Start Date End Date Rg Read MD [address] [place] [phone] PCP - General 03/12/01 10/29/22 documented as of this encounter
--- OUTSIDE RECORDS SUMMARY | 2024-07-12 08:34 | XMS_ITS | Encounter Summary ---
Author Organization [facility] Address [address] [place] [address] Care Team Providers Care Cloth Trimmer Hand Name Role Phone Rg Read MD Primary Care Provider [phone] Reason for Visit * Reason Onset Date Comments Upper Respiratory Symptoms 08/23/2009 Encounter Details Date Type Department Care Team (Late st Contact Info) Description 08/23/2009 Telephone [facility] Internal Medicine - [address] [address] Rg Read MD [address] [place] [address] [place] [address] Upper Respiratory Symptoms Social History Tobacco [...] * Telephone Encounter - Akosua Arce - 08/23/2009 2:00 PM CST Patient calling c/o sore throat, itchy eyes, congestion, cough, no temp. Requesting abx. New ordersreceived. Patient informed rx called to pharm. Call if sx not improved. E/MATERIALS EXCHANGE SPECIALIST documented in this encounter Plan of Treatment Not on file documented as of this encounter Visit Diagnoses Not on filedocumented in this encounter Care Teams Cloth Trimmer Hand Relationship Specialty Start Date End Date Rg Read MD [address] [facility] [address] [place] [address] PCP - General 03/12/01 10/29/22 documented as of this encounter
--- OUTSIDE RECORDS SUMMARY | 2024-07-12 08:34 | XMS_ITS | Encounter Summary ---
Author Organization [facility] Address [address] [place] [address] Care Team Providers Care Shape Carver Name Role Phone Rg Read MD Primary Care Provider [phone] Reason for Visit * Reason Onset Date Comments Medication Problem 04/02/2010 Encounter Details Date Type Department Care Team (Late st Contact Info) Description 04/02/2010 Telephone [facility] Internal Medicine - [facility] [address] [facility] [address] [place] [address] Rg Read MD 141 [facility] [address] [place] [address] Medication Problem Social History Tobacco Use [...] encounter Miscellaneous Notes * Telephone Encounter - Fátima Lozano RN - 04/02/2010 2:56 PM CDT Pt states she has been on sulindac for her back but it has been giving her stomach upset- so she went back over to Ibuprofen her pharmacist suggested Diclofenac as it is absorbed differently--orders given by Dr Read documented in this encounter Plan of Treatment Not on file documented as of this encounter Visit Diagnoses Not on filedocumented in this encounter Care Teams Shape Carver Relationship Specialty Start Date End Date Rg Read MD 141 [facility] [address] [place] [address] PCP - General 03/12/01 10/29/22 documented as of this encounter
--- OUTSIDE RECORDS SUMMARY | 2024-07-12 08:34 | XMS_ITS | Encounter Summary ---
Author Organization [facility] Address [address] [place] [address] Care Team Providers Care Yard Cleaner Name Role Phone Rg Read MD Primary Care Provider [phone] Reason for Visit * Reason Onset Date Comments Medication Refill 08/14/2009 Encounter Details Date Type Department Care Team (Late st Contact Info) Description 08/14/2009 Refill [facility] Internal Medicine - [facility] [address] [address] Rg Read MD [address] [place] [address] Social History Tobacco Use Types Packs/Day [...] on filedocumented in this encounter Care Teams Yard Cleaner Relationship Specialty Start Date End Date Rg Read MD [address] [place] [address] PCP - General 03/12/01 10/29/22 documented as of this encounter
--- OUTSIDE RECORDS SUMMARY | 2024-07-12 08:34 | XMS_ITS | Encounter Summary ---
Author Organization [facility] Address [address] [place] [address] Care Team Providers Care Hand Binder Cutter Name Role Phone Rg Read MD Primary Care Provider [phone] Reason for Visit * Reason Onset Date Comments Medication Refill 08/16/2010 Encounter Details Date Type Department Care Team (Late st Contact Info) Description 08/16/2010 Refill [facility] Internal Medicine - [address] [address] Rg Read MD [address] [place] [address] Social History Tobacco Use Types Packs/Day [...] Telephone Encounter - Agatha Bolaños RN - 08/16/2010 3:05 PM CST Flexeril refill. LEAD documented in this encounter Plan of Treatment Not on file documented as of this encounter Visit Diagnoses Not on filedocumented in this encounter Care Teams Hand Binder Cutter Relationship Specialty Start Date End Date Rg Read MD [address] [place] [address] PCP - General 03/12/01 10/29/22 documented as of this encounter
--- OUTSIDE RECORDS SUMMARY | 2024-07-12 08:34 | XMS_ITS | Encounter Summary ---
Author Organization [facility] Address [address] [place] [address] Care Team Providers Care Metallographer Name Role Phone Rg Read MD Primary Care Provider [phone] Reason for Visit * Reason Comments Hip Pain Encounter Details Date Type Department Care Team (Late st Contact Info) Description 12/17/2009 3:20 PM CDT Office Visit [facility] Internal Medicine - [address] [phone] Rg Read MD [address] [place] [address] [place] [phone] Osteoarth NOS-Unspec (Primary Dx); Back Pain Social History Tobacco Use Types [...] Reading Time Taken Comments Blood Pressure 120/70 12/17/2009 7:35 AM CDT Pulse 66 12/17/2009 7:35 AM CDT Temperature - - Respiratory Rate 14 12/17/2009 7:35 AM CDT Oxygen Saturation - - Inhaled Oxygen Concentration - - Weight 74.8 kg (165 lb) 12/17/2009 7:35 AM CDT Height - - Body Mass Index 26.63 05/17/2009 12:35 PM CDT documented in this encounter Progress Notes * Rg Read MD - 12/17/2009 4:22 PM CDT Cc: Low back pain. She has had this back pain for a year and she has been to a chiropractor. She has been on Sulindac,that didn???t help. She went back to the chiropractor and that made it worse. Over the last few months it has progressed and she gets a pain starting in the right SIJ radiating over the greater trochanter down the lateral aspect of the leg and down the lateral aspect of the calf and between the 4thand 5th toe. She can???t sleep on that side. It wakes her up at night. She can???t go up the stairswith that leg as the lead leg. In terms of hypertension, denies chest pain or pressure, no palpitations, denies any shortness of breath at rest or trouble breathing with activity and no pedal edema. PFS: Both preceding this visit and during [...] nontender, no liver or spleen enlargement. Musculoskeletal: no palpable tenderness in the back. Reasonable ROM of the hip. Strength is 5/5 flexion/extension at the knees, ankles and hips. DTRs are symmetrical. A: Low back pain with radiculopathy. Prednisone 10mg 40 down to 0 over 12 days in three day decreasing increments dropping 10mg at a time. LS spine. Review the results and call the patient with results and coordinate any further care. If not better in 12 days we may need an MRI. Hypertension: appears to be well controlled. So we will continue the same regimen in an attempt to decrease the morbidity and mortality associated with hypertension related chronic renal failure, cerebrovascular accident, etc. DMB/me documented in this encounter Plan of Treatment Not on file documented as of this encounter Results * XR LUMBAR SPINE 4+ VW (12/20/2009) Anatomical Region Laterality Modality Spine Other Rg Read MD DIAGNOSTIC IMAGING O RDERABLES documented in this encounter Visit Diagnoses Diagnosis Osteoarthrosis, unspecified whether generalized or localized, unspecified site- Primary Back pain Backache, unspecified documented in this encounter Care Teams Metallographer Relationship Specialty Start Date End Date Rg Read MD [address] [place] [address] [address] [place] [address] PCP - General 03/12/01 10/29/22 documented as of this encounter
--- OUTSIDE RECORDS SUMMARY | 2024-07-12 08:34 | XMS_ITS | Encounter Summary ---
Author Organization [facility] Address [address] [place] [address] Care Team Providers Care Inspector Process Name Role Phone Rg Read MD Primary Care Provider [phone] Encounter Details Date Type Department Care Team (Late st Contact Info) Description 05/15/[address] [facility] Internal Medicine - [facility] [address] [address] Laquita Parry, Eddie Jackson MD NO ADDRESS ON FILE Social History [...] on filedocumented in this encounter Care Teams Inspector Process Relationship Specialty Start Date End Date Rg Read MD [address] [place] [phone] PCP - General 03/12/01 10/29/22 documented as of this encounter
--- OUTSIDE RECORDS SUMMARY | 2024-07-12 08:34 | XMS_ITS | Encounter Summary ---
Author Organization [facility] Address [address] [place] [address] Care Team Providers Care Roving Weight Gauger Name Role Phone Rg Read MD Primary Care Provider [phone] Encounter Details Date Type Department Care Team (Latest Contact Info) Description 10/09/2005 Outpatient Historical [facility] Rg Read MD [address] [phone] Shortness of Breath (Primary Dx) Social History Tobacco Use Types Packs/Day Years Used Date Smoking Tobacco: Never Assessed Sex and Gender Information Value Date Recorded Sex Assigned at Not on file Gender Identity Not on file Sexual Orientation Not on file documented as of this encounter Plan of Treatment Not on file documented as of this encounter Visit Diagnoses Diagnosis Shortness of breath- Primary documented in this encounter Care Teams Roving Weight Gauger Relationship Specialty Start Date End Date Rg Reda MD [address] [phone] PCP - General 03/12/01 10/29/22 documented as of this encounter
--- OUTSIDE RECORDS SUMMARY | 2024-07-12 08:34 | XMS_ITS | Encounter Summary ---
Author Organization [facility] Address [address] [place] [address] Care Team Providers Care Director Of Grants Name Role Phone Rg Read MD Primary Care Provider [phone] Reason for Visit * Reason Onset Date Comments Medication Refill 05/09/2009 Encounter Details Date Type Department Care Team (Late st Contact Info) Description 05/09/2009 Refill [facility] Internal Medicine [address] [place] [address] Rg Read MD [address] [place] [phone] Social History Tobacco Use Types Packs/Day Years Used Date Smoking Tobacco: Never Assessed Sex and Gender Information Value Date Recorded Sex Assigned at Not on file Gender Identity Not on file Sexual Orientation Not on file documented as of this encounter Plan of Treatment Not on file documented as of this encounter Visit Diagnoses Not on filedocumented in this encounter Care Teams Director Of Grants Relationship Specialty Start Date End Date Rg Read MD [address] [phone] PCP - General 03/12/01 10/29/22 documented as of this encounter
--- OUTSIDE RECORDS SUMMARY | 2024-07-12 08:34 | XMS_ITS | Encounter Summary ---
Author Organization [facility] Address [address] [place] [address] Care Team Providers Care Media Job Titles Name Role Phone Rg Read MD Primary Care Provider [phone] Encounter Details Date Type Department Care Team (Late st Contact Info) Description 03/17/2005 Outpatient Historical [facility] Internal Medicine - [address] [phone] Rg Read MD [address] [place] [address] Social History Tobacco Use Types Packs/Day Years Used Date Smoking Tobacco: Never Assessed Sex and Gender Information Value Date Recorded Sex Assigned at Not on file Gender Identity Not on file Sexual Orientation Not on file documented as of this encounter Plan of Treatment Not on file documented as of this encounter Visit Diagnoses Not on filedocumented in this encounter Care Teams Media Job Titles Relationship Specialty Start Date End Date Rg Read MD [address] [place] [phone] PCP - General 03/12/01 10/29/22 documented as of this encounter
--- OUTSIDE RECORDS SUMMARY | 2024-07-12 08:34 | XMS_ITS | Encounter Summary ---
Author Organization [facility] Address [address] [place] [address] Care Team Providers Care Peeled Potato Inspector Name Role Phone Rg Read MD Primary Care Provider [phone] Reason for Visit * Reason Onset Date Comments Medication Refill 07/01/2010 Encounter Details Date Type Department Care Team (Late st Contact Info) Description 07/01/2010 Refill [facility] Internal Medicine - [address] [address] Rg Read MD [address] [place] [phone] Social History Tobacco Use Types Packs/Day [...] Telephone Encounter - Agatha Bolaños RN - 07/01/2010 3:07 PM CST Xanax refill. EMS ADMINISTRATOR documented in this encounter Plan of Treatment Not on file documented as of this encounter Visit Diagnoses Not on filedocumented in this encounter Care Teams Peeled Potato Inspector Relationship Specialty Start Date End Date Rg Read MD [address] [place] [phone] PCP - General 03/12/01 10/29/22 documented as of this encounter
--- OUTSIDE RECORDS SUMMARY | 2024-07-12 08:34 | XMS_ITS | Encounter Summary ---
Author Organization [facility] Address [address] [place] [address] Care Team Providers Care Textile Machine Maintenance Mechanic Name Role Phone Rg Read MD Primary Care Provider Encounter Details Date Type Department Care Team (Late st Contact Info) Description 02/16/2006 Outpatient Historical [facility] Internal Medicine - [address] [phone] Rg Read MD [address] [place] [phone] Social History Tobacco Use Types Packs/Day Years Used Date Smoking Tobacco: Never Assessed Sex and Gender Information Value Date Recorded Sex Assigned at Not on file Gender Identity Not on file Sexual Orientation Not on file documented as of this encounter Plan of Treatment Not on file documented as of this encounter Visit Diagnoses Not on filedocumented in this encounter Care Teams Textile Machine Maintenance Mechanic Relationship Specialty Start Date End Date Rg Read MD [address] [place] [phone] PCP - General 03/12/01 10/29/22 documented as of this encounter
--- OUTSIDE RECORDS SUMMARY | 2024-07-12 08:34 | XMS_ITS | Encounter Summary ---
Author Organization [facility] Address [address] [place] [address] Care Team Providers Care Harness Worker Name Role Phone Rg Read MD Primary Care Provider [phone] Reason for Visit * Reason Onset Date Comments Medication Refill 01/10/2010 Encounter Details Date Type Department Care Team (Late st Contact Info) Description 01/10/2010 Refill [facility] Internal Medicine - [facility] [address] [address] Rg Read MD [address] [place] [phone] Social History Tobacco Use Types Packs/Day [...] on filedocumented in this encounter Care Teams Harness Worker Relationship Specialty Start Date End Date Rg Read MD [address] [place] [phone] PCP - General 03/12/01 10/29/22 documented as of this encounter
--- OUTSIDE RECORDS SUMMARY | 2024-07-12 08:34 | XMS_ITS | Encounter Summary ---
Author Organization [facility] Address [address] [place] [address] Care Team Providers Care Plasma Center Nurse Name Role Phone Rg Read MD Primary Care Provider Reason for Visit * Reason Onset Date Comments Spasms 2009 Encounter Details Date Type Department Care Team (Late st Contact Info) Description 2009 Telephone [facility] Internal Medicine - [facility] [address] [facility] [address] [place] [phone] Rg Read MD [address] [place] [address] [place] [phone] Spasms Social History Tobacco Use Types Packs/Day Years [...] * Telephone Encounter - Agatha Bolaños - 2009 11:26 AM CST Pt c/o muscle spasm in lower back from her hip pain. She is taking Sulindac, but is requesting a muscle relaxant to get through the holiday weekend. Order obtained and called to pharmacy for Flexeril. Pt advised to use heat to the area, call if symptoms persist or worsen. MOBILE MECHANIC SUPERVISOR documented in this encounter Plan of Treatment Not on file documented as of this encounter Visit Diagnoses Not on filedocumented in this encounter Care Teams Plasma Center Nurse Relationship Specialty Start Date End Date Rg Read MD 141 [facility] [address] [place] [address] PCP - General 03/12/01 10/29/22 documented as of this encounter
--- OUTSIDE RECORDS SUMMARY | 2024-07-12 08:34 | XMS_ITS | Encounter Summary ---
Author Organization [facility] Address [address] [facility] Attn: Epic Prelude ADT [place] [address] Care Team Providers Care Citrus Fruit Packer Name Role Phone Rg Read MD Primary Care Provider [phone] Encounter Details Date Type Department Care Team (Late st Contact Info) Description 12/29/2007 Outpatient Historical Initial Department [address] [facility] [address] DORMANN: [place] [address] Social History Tobacco Use Types Packs/Day Years Used Date Smoking Tobacco: Never Assessed Sex and Gender Information Value Date Recorded Sex Assigned at Not on file Gender Identity Not on file Sexual Orientation Not on file documented as of this encounter Plan of Treatment Not on file documented as of this encounter Procedures Procedure Name Priority Date/Time Associated Diagnosis Comments LIPID PANEL Routine 12/25/2007 12:00 AM CDT BASIC METABOLIC PANEL Routine 12/25/2007 12:00 AM CDT documented in this encounter Results * BASIC METABOLIC PANEL (12/25/2007 12:00 AM CDT) GLUCOSE 92 65 - 99 mg/dL [facility] Comment:FASTING REFERENCE IN TERVAL BUN 15 7 - 25 mg/dL [facility] CREATININE 0.84 0.50 - 1.20 mg/dL [facility] GFR >60 > OR = 60 mL/min/1. 73m2 [facility] GFR, >60 > OR = 60 mL/min/1. 73m2 [facility] BUN/CREAT RATIO 18 6 - 22 (calc) [facility] SODIUM 140 135 - 146 mmol/L [facility] POTASSIUM 3.9 3.5 - 5.3 mmol/L [facility] CHLORIDE 104 98 - 110 mmol/L [facility]. [facility] CO2 24 21 - 33 mmol/L [facility]. [facility] CALCIUM 9.5 8.6 - 10.2 mg/dL [facility] Comment: Test Performed at: [address] ??[id number] LORNE SHORT MD Rg Read MD CHEMISTRY ORDERABLES Performing Organization Address [facility] Co de Phone Number [facility] [id number] [place] [address] * (ABNORMAL) LIPID PANEL (12/25/2007 12:00 AM CDT) TRIGLYCERIDE 173(H) <150 mg/dL [facility] Comment: Test Performed at: [address] ??[id number] LORNE SHORT MD CHOLESTEROL 225(H) 125 - 200 mg/dL [facility] HDL 65 > OR = 40 mg/dL [facility] CALCULATED LDL CHOLESTEROL 125 <130 mg/dL (calc) [facility] Comment: DESIRABLE RANGE <100 MG/DL FOR PATIENTS WITH CHD OR DIABETES AND <70 MG/DL FOR DIABETIC PATIENTS WITH KNOWN HEART DISEASE. CHOL/HDL RATIO 3.5 < OR = 5.0 (calc) [facility] Rg Read MD CHEMISTRY ORDERABLES Performing Organization Address [facility] Co de Phone Number [facility] [id number] [place] [address] documented in this encounter Visit Diagnoses Not on filedocumented in this encounter Care Teams Citrus Fruit Packer Relationship Specialty Start Date End Date Rg Read MD [address] [place] [phone] PCP - General 03/12/01 10/29/22 documented as of this encounter
--- OUTSIDE RECORDS SUMMARY | 2024-07-12 08:34 | XMS_ITS | Encounter Summary ---
Author Organization [facility] Address [address] [place] [address] Care Team Providers Care Finisher Polisher Name Role Phone Rg Read MD Primary Care Provider [phone] Encounter Details Date Type Department Care Team (Late st Contact Info) Description 10/09/2005 Outpatient Historical [facility] Support Services Respiratory Therapy [address] [facility] [address] [facility], [place] [address] Pablo Davidson MD [address] [place] [address] Social History Tobacco Use Types Packs/Day Years Used Date Smoking Tobacco: Never Assessed Sex and Gender Information Value Date Recorded Sex Assigned at Not on file Gender Identity Not on file Sexual Orientation Not on file documented as of this encounter Plan of Treatment Not on file documented as of this encounter Visit Diagnoses Not on filedocumented in this encounter Care Teams Finisher Polisher Relationship Specialty Start Date End Date Rg Read MD [address] [place] [phone] PCP - General 03/12/01 10/29/22 documented as of this encounter
--- OUTSIDE RECORDS SUMMARY | 2024-07-12 08:34 | XMS_ITS | Encounter Summary ---
Author Organization [facility] Address [address] [place] [address] Care Team Providers Care Auctioneer Automobile Name Role Phone Rg Read MD Primary Care Provider [phone] Reason for Visit * Reason Onset Date Comments Medication Refill 06/14/2010 Encounter Details Date Type Department Care Team (Late st Contact Info) Description 06/14/2010 Refill [facility] Internal Medicine - [address] [address] Rg Read MD [address] [place] [address] Social History Tobacco Use Types Packs/Day [...] Telephone Encounter - Agatha Bolaños RN - 06/14/2010 3:33 PM CST Flexeril refill. CH OPERATOR documented in this encounter Plan of Treatment Not on file documented as of this encounter Visit Diagnoses Not on filedocumented in this encounter Care Teams Auctioneer Automobile Relationship Specialty Start Date End Date Rg Read MD [address] [place] [place] [phone] PCP - General 03/12/01 10/29/22 documented as of this encounter
--- OUTSIDE RECORDS SUMMARY | 2024-07-12 08:34 | XMS_ITS | Encounter Summary ---
Author Organization [facility] Address [address] [place] [address] Care Team Providers Care Clinical Abstractor Name Role Phone Rg Read MD Primary Care Provider [phone] Encounter Details Date Type Department Care Team (Late st Contact Info) Description 12/20/2009 Orders Only [facility] Internal Medicine - [address] [address] Rg Read MD [address] [place] [phone] Back Pain Social History Tobacco Use [...] Name Priority Date/Time Associated Diagnosis Comments XR LUMBAR SPINE 4+ VW Routine 12/20/2009 Back Pain documented in this encounter Results * XR LUMBAR SPINE 4+ VW (12/20/2009) Anatomical Region Laterality Modality Spine Other Rg Read MD DIAGNOSTIC IMAGING O RDERABLES documented in this encounter Visit Diagnoses Diagnosis Back pain Backache, unspecified documented in this encounter Care Teams Clinical Abstractor Relationship Specialty Start Date End Date Rg Read MD [address] [place] [phone] PCP - General 03/12/01 10/29/22 documented as of this encounter
--- OUTSIDE RECORDS SUMMARY | 2024-07-12 08:35 | XMS_ITS | Encounter Summary ---
Author Organization [facility] Address [address] [place] [address] Care Team Providers Care Marine Cargo Surveyor Name Role Phone Rg Read MD Primary Care Provider [phone] Encounter Details Date Type Department Care Team (Late st Contact Info) Description 01/18/2004 Outpatient Historical [facility] Internal Medicine - [address] [address] Rg Read MD [address] [place] [address] Social History Tobacco Use Types Packs/Day Years Used Date Smoking Tobacco: Never Assessed Sex and Gender Information Value Date Recorded Sex Assigned at Not on file Gender Identity Not on file Sexual Orientation Not on file documented as of this encounter Plan of Treatment Not on file documented as of this encounter Visit Diagnoses Not on filedocumented in this encounter Care Teams Marine Cargo Surveyor Relationship Specialty Start Date End Date Rg Read MD [address] [place] [phone] PCP - General 03/12/01 10/29/22 documented as of this encounter
--- OUTSIDE RECORDS SUMMARY | 2024-07-12 08:35 | XMS_ITS | Continuity of Care Document ---
Author Organization [facility] Address [address] [place] [address] Phone Care Team Providers Care Catcher Filter Tip Name Role Phone Rg Broussard MD Unavailable Unavailable Procedures Procedure Date INJECTION PROCEDURE FOR SACRIOLIAC JOINT W/ IMAGE GUIDANCE SURGICAL TRAY DEPO-MEDROL 80MG Advance Directives Directive Yes / No Effective Date File Name No Information Encounters Encounter Description Practice Location Reason(s) For Visit Diagnoses Date Provider Providers [facility]ied [facility] [address], [place], [place], [id number], [place] tel:[phone] [facility] No Information Bobo Diez. [address] , [place], [place], [id number], [place]. tel:[phone] Referring Provider: [address], [place], [address]. tel:[phone] Family History Family Member Type Diagnosis Age At Onset No Information Payers Payer name Insurance type Covered democrat ID Authoriza tion(s) [facility] [employer] MEDICARE ADVANTAGE [place] [id number] Social History Type Description Quantity Date [...]
--- OUTSIDE RECORDS SUMMARY | 2024-07-12 08:35 | XMS_ITS | Encounter Summary ---
Author Organization [facility] Address [address] [place] [address] Care Team Providers Care Hospital Corpsman Name Role Phone Rg Read MD Primary Care Provider [phone] Encounter Details Date Type Department Care Team (Late st Contact Info) Description 03/01/2001 Outpatient Historical [facility] Internal Medicine - [facility] [address] [address] Laquita Parry, Eddie Jackson MD [...] on filedocumented in this encounter Care Teams Hospital Corpsman Relationship Specialty Start Date End Date Rg Read MD [address] [place] [phone] PCP - General 03/12/01 10/29/22 documented as of this encounter
--- OUTSIDE RECORDS SUMMARY | 2024-07-12 08:35 | XMS_ITS | Encounter Summary ---
Author Organization [facility] Address [address] [place] [address] Care Team Providers Care Instructor Decorating Name Role Phone Rg Read MD Primary Care Provider [phone] Encounter Details Date Type Department Care Team (Late st Contact Info) Description 04/13/2000 Outpatient Historical [facility] Internal Medicine - [address] [phone] Rg Read MD [address] [place] [address] Social History Tobacco Use Types Packs/Day Years Used Date Smoking Tobacco: Never Assessed Sex and Gender Information Value Date Recorded Sex Assigned at Not on file Gender Identity Not on file Sexual Orientation Not on file documented as of this encounter Plan of Treatment Not on file documented as of this encounter Visit Diagnoses Not on filedocumented in this encounter Care Teams Instructor Decorating Relationship Specialty Start Date End Date Rg Read MD [address] [place] [phone] PCP - General 03/12/01 10/29/22 documented as of this encounter
--- OUTSIDE RECORDS SUMMARY | 2024-07-12 08:35 | XMS_ITS | Encounter Summary ---
Author Organization [facility] Address [address] [place] [address] Care Team Providers Care Safety Deposit Supervisor Name Role Phone Rg Read MD Primary Care Provider [phone] Encounter Details Date Type Department Care Team (Late st Contact Info) Description 11/01/1998 Outpatient Historical [facility] Internal Medicine - [facility] [address] [address] Laquita Parry, Eddie Jackson MD [...] on filedocumented in this encounter Care Teams Safety Deposit Supervisor Relationship Specialty Start Date End Date Rg Read MD [address] [place] [phone] PCP - General 03/12/01 10/29/22 documented as of this encounter
--- OUTSIDE RECORDS SUMMARY | 2024-07-12 08:35 | XMS_ITS | Continuity of Care Document ---
Author Organization [facility] Address [address] [place] [address] [address] [place] [address] Phone Care Team Providers Care Teachers Assistant Name Role Phone Ventura OD, Robert Unavailable Unavailable Advance Directives Directive Yes / No Effective Date File Name No Information Encounters Encounter Description Practice Location Reason(s) For Visit Diagnoses Date Provider Providers Copied on Encounter [facility], [address], [place], [place], [id number], [place] tel:[phone] [facility] No Information Dec-0 6-200 3 Ventura OD Robert[address] , [address], [place], [address], [place]. tel:[phone] Family History Family Member Type Diagnosis Age At Onset No Information Payers Payer name Insurance type Covered constitution party ID Authoriza tion(s) No Information Social [...]
--- OUTSIDE RECORDS SUMMARY | 2024-07-12 08:35 | XMS_ITS | Encounter Summary ---
Author Organization [facility] Address 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, vestibular (Primary Dx) Social History Tobacco Use Types Packs/Day Years Used Date Smoking Tobacco: Never Assessed Sex and Gender Information Value Date Recorded Sex Assigned at Not on file Gender Identity Not on file Sexual Orientation Not on file documented as of this encounter Plan of Treatment Not on file documented as of this encounter Visit Diagnoses Diagnosis 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
--- OUTSIDE RECORDS SUMMARY | 2024-07-12 08:35 | XMS_ITS | Encounter Summary ---
Author Organization [facility] Address [address] [place] [address] Care Team Providers Care Director Of Product Management Name Role Phone Rg Read MD Primary Care Provider Encounter Details Date Type Department Care Team (Late st Contact Info) Description 04/26/1998 Outpatient Historical [facility] Internal Medicine - [address] [phone] Rg Read MD [address] [place] [phone] Social History Tobacco Use Types Packs/Day [...] in this encounter Care Teams Director Of Product Management Relationship Specialty Start Date End Date Rg Read MD [address] [place] [phone] PCP - General 03/12/01 10/29/22 documented as of this encounter
--- OUTSIDE RECORDS SUMMARY | 2024-07-12 08:35 | XMS_ITS | Encounter Summary ---
Author Organization [facility] Address [address] [place] [address] Care Team Providers Care Carpenter Rough Name Role Phone Rg Read MD Primary Care Provider [phone] Encounter Details Date Type Department Care Team (Late st Contact Info) Description 11/07/1999 Outpatient Historical [facility] Internal Medicine - [address] [phone] Rg Read MD [address] [place] [phone] Social History Tobacco Use Types Packs/Day Years Used Date Smoking Tobacco: Never Assessed Sex and Gender Information Value Date Recorded Sex Assigned at Not on file Gender Identity Not on file Sexual Orientation Not on file documented as of this encounter Plan of Treatment Not on file documented as of this encounter Visit Diagnoses Not on filedocumented in this encounter Care Teams Carpenter Rough Relationship Specialty Start Date End Date Rg Read MD [address] [place] [phone] PCP - General 03/12/01 10/29/22 documented as of this encounter
--- OUTSIDE RECORDS SUMMARY | 2024-07-12 08:35 | XMS_ITS | Encounter Summary ---
Author Organization [facility] Address [address] [place] [address] Care Team Providers Care Cable Engineer Name Role Phone Rg Read MD Primary Care Provider [phone] Encounter Details Date Type Department Care Team (Late st Contact Info) Description 01/19/1998 Outpatient Historical [facility] Internal Medicine - [address] [phone] Rg Read MD [address] [place] [phone] Social History Tobacco Use Types Packs/Day Years Used Date Smoking Tobacco: Never Assessed Sex and Gender Information Value Date Recorded Sex Assigned at Not on file Gender Identity Not on file Sexual Orientation Not on file documented as of this encounter Plan of Treatment Not on file documented as of this encounter Visit Diagnoses Not on filedocumented in this encounter Care Teams Cable Engineer Relationship Specialty Start Date End Date Rg Read MD [address] [place] [phone] PCP - General 03/12/01 10/29/22 documented as of this encounter
--- OUTSIDE RECORDS SUMMARY | 2024-07-12 08:35 | XMS_ITS | Encounter Summary ---
Author Organization [facility] Address [address] [place] [address] Care Team Providers Care Bilingual Customer Service Specialist Name Role Phone Rg Read MD Primary Care Provider [phone] Encounter Details Date Type Department Care Team (Late st Contact Info) Description 07/31/2000 Outpatient Historical [facility] Internal Medicine - [address] [address] Rg Read MD [address] [place] [phone] Social History Tobacco Use Types Packs/Day Years Used Date Smoking Tobacco: Never Assessed Sex and Gender Information Value Date Recorded Sex Assigned at Not on file Gender Identity Not on file Sexual Orientation Not on file documented as of this encounter Plan of Treatment Not on file documented as of this encounter Visit Diagnoses Not on filedocumented in this encounter Care Teams Bilingual Customer Service Specialist Relationship Specialty Start Date End Date Rg Read MD [address] [place] [phone] PCP - General 03/12/01 10/29/22 documented as of this encounter
--- OUTSIDE RECORDS SUMMARY | 2024-07-12 08:35 | XMS_ITS | Encounter Summary ---
Author Organization [facility] Address [address] [place] [address] Care Team Providers Care Property Utilization Officer Name Role Phone Rg Read MD Primary Care Provider [phone] Encounter Details Date Type Department Care Team (Late st Contact Info) Description 10/28/2001 Outpatient Historical [facility] Internal Medicine - [address] [phone] Rg Read MD [address] [place] [phone] Social History Tobacco Use Types Packs/Day Years Used Date Smoking Tobacco: Never Assessed Sex and Gender Information Value Date Recorded Sex Assigned at Not on file Gender Identity Not on file Sexual Orientation Not on file documented as of this encounter Plan of Treatment Not on file documented as of this encounter Visit Diagnoses Not on filedocumented in this encounter Care Teams Property Utilization Officer Relationship Specialty Start Date End Date Rg Read MD [address] [place] [phone] PCP - General 03/12/01 10/29/22 documented as of this encounter
--- OUTSIDE RECORDS SUMMARY | 2024-07-12 08:35 | XMS_ITS | Encounter Summary ---
Author Organization [facility] Address [address] [place] [address] Care Team Providers Care Mechanical System Technician Name Role Phone Rg Read MD Primary Care Provider [phone] Encounter Details Date Type Department Care Team (Late st Contact Info) Description 09/10/1999 Outpatient Historical [facility] Internal Medicine - [facility] [address] [address] Laquita Parry, Eddie Jackson MD [...] on filedocumented in this encounter Care Teams Mechanical System Technician Relationship Specialty Start Date End Date Rg Read MD [address] [place] [phone] PCP - General 03/12/01 10/29/22 documented as of this encounter
--- OUTSIDE RECORDS SUMMARY | 2024-07-12 08:35 | XMS_ITS | Encounter Summary ---
Author Organization [facility] Address 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 Dx) Social History Tobacco Use Types Packs/Day Years Used Date Smoking Tobacco: Never Assessed Sex and Gender Information Value Date Recorded Sex Assigned at Not on file Gender Identity Not on file Sexual Orientation Not on file documented as of this encounter Plan of Treatment Not on file documented as of this encounter Visit Diagnoses Diagnosis Other nonspecific abnormal cardiovascular system function study- Primary documented in this encounter Care Teams Boiler Erector Relationship Specialty Start Date End Date Rg Read MD [address] [place] [phone] PCP - General 03/12/01 10/29/22 documented as of this encounter
--- OUTSIDE RECORDS SUMMARY | 2024-07-12 08:35 | XMS_ITS | Encounter Summary ---
Author Organization [facility] Address [address] [place] [address] Care Team Providers Care Bone Cooking Operator Name Role Phone Rg Read MD Primary Care Provider [phone] Encounter Details Date Type Department Care Team (Late st Contact Info) Description 02/29/2004 Outpatient Historical [facility] Internal Medicine - [address] [phone] Rg Read MD [address] [place] [phone] Social History Tobacco Use Types Packs/Day Years Used Date Smoking Tobacco: Never Assessed Sex and Gender Information Value Date Recorded Sex Assigned at Not on file Gender Identity Not on file Sexual Orientation Not on file documented as of this encounter Plan of Treatment Not on file documented as of this encounter Visit Diagnoses Not on filedocumented in this encounter Care Teams Bone Cooking Operator Relationship Specialty Start Date End Date Rg Read MD [address] [place] [phone] PCP - General 03/12/01 10/29/22 documented as of this encounter
--- OUTSIDE RECORDS SUMMARY | 2024-07-12 08:35 | XMS_ITS | Encounter Summary ---
Author Organization [facility] Address [address] [place] [address] Care Team Providers Care Hazardous Materials Waste Technician Name Role Phone Rg Read MD Primary Care Provider [phone] Encounter Details Date Type Department Care Team (Late st Contact Info) Description 10/28/2001 Outpatient Historical [facility] Internal Medicine - [address] [address] Rg Read MD [address] [place] [phone] Social History Tobacco Use Types Packs/Day Years Used Date Smoking Tobacco: Never Assessed Sex and Gender Information Value Date Recorded Sex Assigned at Not on file Gender Identity Not on file Sexual Orientation Not on file documented as of this encounter Plan of Treatment Not on file documented as of this encounter Visit Diagnoses Not on filedocumented in this encounter Care Teams Hazardous Materials Waste Technician Relationship Specialty Start Date End Date Rg Read MD [address] [place] [phone] PCP - General 03/12/01 10/29/22 documented as of this encounter
--- OUTSIDE RECORDS SUMMARY | 2024-07-12 08:35 | XMS_ITS | Encounter Summary ---
Author Organization [facility] Address [address] [place] [address] Care Team Providers Care Children'S Tutor Nursery Name Role Phone Rg Read MD Primary Care Provider [phone] Encounter Details Date Type Department Care Team (Late st Contact Info) Description 09/10/2000 Outpatient Historical [facility] Internal Medicine - [address] [address] Rg Read MD [address] [place] [phone] Social History Tobacco Use Types Packs/Day Years Used Date Smoking Tobacco: Never Assessed Sex and Gender Information Value Date Recorded Sex Assigned at Not on file Gender Identity Not on file Sexual Orientation Not on file documented as of this encounter Plan of Treatment Not on file documented as of this encounter Visit Diagnoses Not on filedocumented in this encounter Care Teams Children'S Tutor Nursery Relationship Specialty Start Date End Date Rg Read MD [address] [place] [phone] PCP - General 03/12/01 10/29/22 documented as of this encounter
--- OUTSIDE RECORDS SUMMARY | 2024-07-12 08:36 | XMS_ITS | Encounter Summary ---
Author Organization [facility] Address [address] [place] [address] Care Team Providers Care Corrective And Manual Arts Therapist Name Role Phone Enmanuel Gan MD Primary Care Provider [phone] gT Houston MD Unavailable [phone] Guerrero Hunter DPT Unavailable [phone] Guerrero Weiner ALTERATIONS MANAGER Unavailable [phone] Stephen Barth MD Unavailable [phone] Encounter Details Date Type Department Care Team (Late st Contact Info) Description 04/07/2024 Telephone [facility] [address] [facility] [address] [place] [address] Clara Thakkar, LAUNDRY HOUSEKEEPING AIDE [address] [facility] [address], [place] [address] Social History Tobacco Use Types Packs/Day Years Used Date Smoking Tobacco: Never Smokeless Tobacco: Never Alcohol Use Standard Drinks/Week Comments Yes 5 (1 standard drink = 0.6 oz pur e alcohol) OASIS D0700: Social Isolation Answer Da te Recorded Frequency of experiencing loneliness or isolatio n Never 02/24/2024 OASIS A1250: Transportation Answer Date Recorded Lack of Transportation (Medical) No 02/24/2024 Lack of Transportation (Non-Medical) No 02/24/2024 Patient Unable or Declines to Respond No 02/24/2024 OASIS B1300: Health Literacy Answer Ramin e Recorded Frequency of needing help to read materials from doctor or pharmacy Never 02/24/2024 [facility] Utilities Answer Date Recorded In the past 12 months has th e electric, gas, oil, or water company threatened to shut off services in your home? No 01/07/2024 Social Connection and Isolat ion Panel [NHANES] Answer Date Recorded In a typical week, how many times do you talk on the phone with family, friends, or neighbors? More than three times a week 02/22/2024 How often do you get togethe r with friends or relatives? More than three times a week 02/22/2024 How often do you attend chur ch or tenriism services? Never 02/22/2024 Do you belong to any clubs o r organizations such as jain groups, unions, fraternal or athletic groups, or school groups? Yes 02/22/2024 How often do you attend meet ings of the clubs or organizations you belong to? More than 4 times per year 02/22/2024 Are you , , di vorced, , never , or living with a partner? 02/22/2024 AUDIT-C Answer Date Recorded Q1: How often do you have a drink containing alcohol? 4 or more times a week 12/02/2023 Q2: How many drinks containi ng alcohol do you have on a typical day when you are drinking? 1 or 2 Q3: How often do you have si x or more drinks on one occasion? Never 12/02/2023 Overall Financial Resource Strain (CARDIA) Answe r Date Recorded How hard is it for you to pa y for the very basics like food, housing, medical care, and heating? Not hard at all 01/07/2024 PHQ-2 Answer Date Recorded PHQ-2 Total Score (If total score is 3 or more points, staff should administer the PHQ-9) 0 01/07/2024 Hunger Vital Sign Answer Date Recorded Within the past 12 months, y ou worried that your food would run out before you got the money to buy more. Never true 02/22/20 24 Within the past 12 months, t he food you bought just didn't last and you didn't have money to get more. Never true 02/22/2024 PRAPARE - Transportation Answer Date Re corded In the past 12 months, has l ack of transportation kept you from medical appointments or from getting medications? No 12/25 In the past 12 months, has l ack of transportation kept you from meetings, work, or from getting things needed for daily living? No 01/07/2024 Housing Stability Vital Sign Answer Ramin e Recorded In the last 12 months, was t here a time when you were not able to pay the mortgage or rent on time? No 01/07/2024 In the past 12 months, how m any times have you moved where you were living? 1 01/07/2024 At any time in the past 12 m [facility], were you homeless or living in a senior care (including now)? No 01/07/2024 Personal Safety Answer Date Recorded Have you ever been in or are you currently in a harmful physical or emotional relationship or is someone making you feel afraid or unsafe? Denies 01/06/2024 Comments No Sex and Gender Information Value Date Recorded Sex Assigned at Not on file Legal Sex Female 9:09 PM DISINTEGRATOR Gender Identity Not on file Sexual Orientation Lesbian 05/24/2019 9: 06 AM CDT documented as of this encounter Miscellaneous Notes * Telephone Encounter - Jo Schofield MA - 04/07/2024 4:06 PM CDT Spoke with patient clarified dose no additional questions. * Telephone Encounter - Fabiana Frias - 04/07/2024 9:08 AM CDT PT called saying she seen Clara Roshni Thursday04/04/24 and rcvd a new Rx for Metoprolol and she said shealready had this Rx at home and didn't know if there was a difference. She did not request a refillso she is unsure if this is a new dosage or what the difference in the two are. Please call pt. documented in this encounter Plan of Treatment Not on file documented as of this encounter Visit Diagnoses Not on filedocumented in this encounter Care Teams Corrective And Manual Arts Therapist Relationship Specialty Start Date End Date Enmanuel Gan MD [address] [place] [address] PCP - General Internal Medicine 04/26/20 Tg Houston MD [address] [place] [address] Consulting Physician Cardiology 07/18/20 Guerrero Hunter DPT [address] [facility] [address] [facility] [place] [address] Physical Therapist Physical Therapy 11/08/20 Guerrero Weiner, [facility] [address] [place] [address] Duco Polisher Physical Therapy 12/12/20 Stephen Barth MD [address] [place] [address] Referring Physician Transplant 10/19/23 documented as of this encounter
--- OUTSIDE RECORDS SUMMARY | 2024-07-12 08:36 | XMS_ITS | Referral Summary ---
Author Organization [facility] HealthCare Care Team Providers Care Advertising Layout Worker Name Role Phone Enmanuel Gan MD Primary Care Provider Tg Houston MD Unavailable [phone] Guerrero Hunter DPT Unavailable [phone] Guerrero Weiner RATCHET SETTER Unavailable [phone] Stephen Barth MD Unavailable [phone] Encounters Date Type Department Care Team Description 07/06/2024 [facility] [address] [address] Ashvin Recio III, MD Med Refill 06/07/2024 8:18 AM BIOGEOGRAPHER - 06/07/2024 11:59 PM BIOGEOGRAPHER Hospital Encounter [facility] [address] [place] [phone] Jeremy Michelle MD Fusion of spine of lumbar region Discharge Disposition: Discharge to home or self care 06/07/2024 7:15 AM BIOGEOGRAPHER - 06/07/2024 11:59 PM BIOGEOGRAPHER Hospital Encounter [facility]) [address] [place] [id number] Fusion of spine of lumbar region Discharge Disposition: Discharge to home or self care 06/07/2024 7:40 AM BIOGEOGRAPHER Office Visit [facility] Orthopaedic Surgery [address] [place] [address] [place] [phone] Jeremy Michelle MD Fusion of spine of lumbar region (Primary Dx) 05/23/2024 Orders Only [facility] [address] [place] [address] [address], [place] [address] Ashvin Recio III, MD NICM (nonischemic cardiomyopathy) (CMS/HCC) (HCC) (Primary Dx) 05/23/2024 Telephone [facility] Orthopaedic Surgery [address] [place] [address] [place] [address] Jeremy Michelle MD [facility] 05/31/24 appt with [facility] 05/23/2024 9:45 AM CDT Ancillary Procedure [facility] [address] [place] [address] [place] [phone] ICD (implantable cardioverter-defibr illator), dual, in situ (Primary Dx); NICM (nonischemic cardiomyopathy) (CMS/HCC) (HCC) from Last 3 Months Allergies Active Allergy Reactions Criticality Noted Date Comments Adhesive Rash,Blisters High 04/26/2020 Surgical tape Cefadroxil Rash Medium 02/10/2024 Tolerated Ceftriaxone. Cefadroxil Hives,Itching Medium 02/10/2024 Chlorhexidine Rash Medium 07/13/2020 Gabapentin Other (See comments) Low 04/26/2020 Retain water Sulfa (Sulfonamide Antibiotics) Hives,Rash Medium Medications atorvastatin (LIPITOR) 20 mg tabletIndication s:hyperlipidemia Take 1 tablet (20 mg total) by mouth nightly 07/29/[address] (CYMBALTA) 60 mg capsuleIndicatio ns:Anxiety with Depression Take 1 capsule (60 mg total) by mouth every morning 03/11/20 23 Active furosemide (LASIX) 40 mg tabletIndication s:Peripheral Edema due to Chronic Heart Failure [The details of the medication are not available because there are pending changes by a home health clinician.] 60 tablet 12/14/19 24 Active Additional Information Patient taking differently:40 mg oralDaily, This medication dose was changed 02/05/24, Indications: Peripheral Edema due to Chronic Heart Failure, Reported on 02/10/2024 amiodarone (PACERONE) 200 mg tabletIndication s:Prevention of Recurrent Atrial Fibrillation [The details of the medication are not available because there are pending changes by a home health clinician.] 30 tablet 12/14/19 24 Active Additional Information Patient not taking.Reported on 02/10/2024 methocarbamoL (ROBAXIN) 750 mg tabletIndication s:Muscle Spasm Take 1 tablet (750 mg total) by mouth every 8 (eight) hours 90 tablet 2 01/05/20 24 Active Eliquis 5 mg tabletIndication s:atrial fibrillation DO NOT TAKE THIS MEDICATION UNTIL AFTER YOU COMPLETE YOUR LOVENOX INJECTIONS (JANUARY 14, 2024). ON JANUARY 14, 2024 YOU MAY RESUME TAKING 5MG BY MOUTH TWICE A DAY. 01/08/20 24 Active acetaminophen 500 mg capsuleIndicatio ns:Pain Take 2 capsules (1,000 mg total) by mouth every 6 (six) hours as needed for pain 01/08/20 24 Active cholecalciferol (VITAMIN D-3) 1,000 unit capsuleIndicatio ns:Vitamin D Deficiency Take 1,000 Units by mouth daily. Indications: low vitamin D levels Active calcium carbonate (CALCIUM 500 ORAL)Indications :Supplement Take 500 mg by mouth daily. Indications: Supplement Active magnesium citrate and oxide (magnesium citrate,mag oxide) 250 mg capsuleIndicatio ns:hypomagnesemi a Take 250 mg by mouth daily. Indications: low amount of magnesium in the blood Active potassium chloride ER (KLOR-CON) 20 mEq CR tabletIndication s:Prevention of hypokalemia 2/2 diuretic use Take 20 mEq by mouth daily. Indications: Prevention of hypokalemia 2/2 diuretic use Active azelastine (ASTELIN) 137 mcg (0.1 %) nasal spray spray(s), 0 08/20/19 24 Active fluticasone propionate (FLONASE) 50 mcg/actuation nasal spray 1 spray(s), Nasal, daily, 1 each, Reseda, 0 08/20/19 24 Active sucralfate (Carafate) 1 gram tablet 2 tablets (2 g total) 08/20/19 24 Active doxepin (SINEquan) 25 mg capsule TAKE 1 TO 2 CAPSULES BY MOUTH EVERY DAY AT BEDTIME 03/20/20 24 Active fexofenadine-pse udoephedrine (Kimberly-D 12 Hour) 60-120 mg per 12 hr tablet flutic tablet(s), 0 08/20/19 24 Active metoprolol tartrate (LOPRESSOR) 25 mg immediate release tablet Take 1 tablet (25 mg total) by mouth 2 (two) times a day 60 tablet 11 07/06/20 24 025 Active metoprolol tartrate (LOPRESSOR) 50 mg immediate release tabletIndication s:Atrial Arrhythmia Take 0.5 tablets (25 mg total) by mouth 2 (two) times a day 90 tablet 3 04/04/20 24 024 Discontin ued(Alter samuel therapy) Active Problems Problem Noted Date Diagnosed Date Osteomyelitis of vertebra, lumbar region 024 Encounter for screening exam ination for sexually transmitted disease 02/09/2024 Assessment & Plan (02/09/2024 12:07 PM CDT): Reviewed STI screening form, no concerns for STI testing today. Infection of lumbar spine ([facility]) 01/06/2024 Assessment & Plan (02/23/2024 9:28 AM CDT): -Patient presents to clinic for a return visit. She has completed 6 weeks of Ceftriaxone followed by Doxycyline for the treatment of an MSSE discitis/osteomyelitis of the lumbar spine. -Reviewed labs in clinic today. -No concerns for need for continued antibiotics today. - Discussed with patient the rational for treatment, culture results, risk of recurrent infection, signs/symptoms of recurrent infection, and to contact ID clinic with any questions or concerns. Assessment & Plan (02/09/2024 12:06 PM CDT): -Patient presents to clinic for a post hospital visit. She has completed 4 weeks of Ceftriaxone for the treatment of an MSSE discitis/osteomyelitis of the lumbar spine. -Patient would like to stop IV antibiotics today. We will stop and pull her PICC line in clinic. -She will transition to Cefadroxil 1000mg PO BID for an additional two weeks to complete 6 weeks of antibiotics. -Reviewed labs in clinic today. -We will repeat ESR and CRP today - Discussed with patient the rational for treatment, culture results, risk of recurrent infection, signs/symptoms of recurrent infection, and to contact ID clinic with any questions or concerns. Assessment & Plan (01/06/2024 4:34 PM CDT): The patient is a 78 y.o. female with PMH of multiple spine surgeries including prior posterior spinal instrumented fusion L1-L4 in 06/2020 which was a revision due to a prior nonunion L2-L3 with worsening kyphosis c/b new nonunion at the proximal level at L1-2 and had progressive kyphosis at the adjacent segment T12-L1 as well. Recently admitted for revision with extension up to T10 and extending down to pelvis PSIF T12/L1 and L1 removal of hardware/screws bilaterally on 12/01. Per op note after removing L1 pedicle screws bilaterally, the holes were debrided and packed with bone graft, vancomycin placed directly in the pedicles, no obvious infection seen but cultures obtained. OR culture grew MSSE. Postop course complicated with Vtach and transferred to ICU started on amiodarone. She was discharged home on 12/13. Seen in ortho clinic 01/04 and was doing well, surgical incisions appeared to be healing. Cultures reviewed and given possible infected nonunion she was readmitted to start IV antibiotics. Recommendations: - please check baseline CBC with diff, CMP, ESR and CRP - start IV ceftriaxone 2g q24h - ok for PICC line, plan for 6 weeks of IV antibiotics - monitor weekly CBC and CMP - ID will sign off, will arrange follow up in clinic Encounter for education 11/12/2023 Pseudoarthrosis of lumbar spine 11/04/2023 Hypersomnolence 11/28/2022 SNIDER (dyspnea on exertion) 11/28/2022 ICD (implantable cardioverter-defibrillator)arnold, in situ 06/06/2021 Overview (06/06/2021): [employer] DDD Dynagen ICD imp on 06/05/21 for NICM/Mob II/NSVT. Hemal (EP-following) Celso (Card) - Latitude Fusion of spine of thoracolumbar region 05/06/20 AV block, 2nd degree 04/15/2021 Assessment & Plan (04/15/2021 4:30 PM CDT): With alternating bundle branch block and near syncope. Pacing is indicated to prevent syncope and improve symptoms. Given diagnosis of HCM and syncope, recommend dual chamber ICD. Discussed with patient at length. Discussed rationale, steps, recovery. I reviewed the risks and benefits of ICD implantation with These risks include but are not limited to infection, hematoma, pneumothorax, hemothorax, cardiac perforation and tamponade, stroke, myocardial infarction and . We also discussed the possibility of lead dislodgement, lead recall and premature battery depletion. The patient voiced understanding and expressed desire to proceed. --Will arrange for dual chamber ICD implantation w/anesthesia (Quanttus). --Hold beta nayana. --Flecainide stopped indefinitely. --Hold apixaban for 2 days prior to procedure. Apical variant hypertrophic cardiomyopathy 04/15 Assessment & Plan (07/09/2021 3:33 PM BIOGEOGRAPHER): Apical hypertrophic cardiomyopathy without evidence of congestive heart failure. She has an ICD. Assessment & Plan (04/15/2021 4:32 PM CDT): New diagnosis. With syncope. No documented VT. No significant LGE. No known FHx. Discussed implications at length with patient. SCD risk is likely relatively low, although presyncope/syncope is somewhat concerning. Because pacing is already indicated, it is reasonable to proceed with ICD implantation to avoid need for additional device procedures in future. Pt understands and agrees. --Dual ICD as above. --Resume BB after ICD implantation. --HF therapy per Dr. Houston. Abnormal echocardiogram 04/08/2021 Assessment & Plan (04/11/2021 7:19 AM CDT): Echocardiogram is consistent with apical hypertrophy. She is scheduled for an MRI to confirm. If this diagnosis is proven, she will need an ICD rather than just a pacemaker. Post-operative pain 09/04/2020 Paroxysmal atrial fibrillation (CMS/HCC) 020 Assessment & Plan (12/06/2023 3:38 PM CDT): Patient with a history of atrial fibrillation on prior device interrogations that presents with AF with RVR and became hypotensive with metoprolol and IV amiodarone that required cardioversion now in SR -Given history of HCM requires anticoagulation. This can be started when safe from per her orthopedic spine team -Continue with amiodarone 400mg BID for 7 days, followed by amiodarone 400mg daily for 7 days and then drop to amiodarone 200mg daily until she follows up with her primary cardiologists (Dr. Barth). When stable ok to restart her home metoprolol but would not restart her diltiazem -Suspect her elevated troponin is likely secondary to demand ischemia (currently denies any chest pain, shortness of breath or other ischemic symptoms) due to Apical HCM and possible microvascular dysfunction. At this time no indication for further ischemic evaluation Assessment & Plan (07/09/2021 3:33 PM BIOGEOGRAPHER): Chronically anticoagulated with Eliquis. Assessment & Plan (04/15/2021 4:31 PM CDT): No recent symptoms. Frequent PACs currently. Previously managed with flecainide, complicated by exacerbation of AV block. Flecainide contraindicated in presence of HCM and AV block. Will address AF therapy after device in place. --Holding BB for now. --Dual chamber ICD as above. --Resume BB after ICD implantation. --Continue apixaban, hold for procedure. Assessment & Plan (04/11/2021 7:21 AM CDT): She has had no symptomatic recurrence, and despite being off flecainide is in sinus rhythm by exam today. Anticoagulation is on hold pending device implantation. Assessment & Plan (03/29/2021 8:53 AM CDT): Currently in sinus rhythm. Eliquis and flecainide are on hold. Assessment & Plan (01/14/2021 2:54 PM CDT): Maintaining sinus rhythm on flecainide. She is anticoagulated with Eliquis. EKG today shows acceptable QT interval. Assessment & Plan (07/16/2020 1:56 PM BIOGEOGRAPHER): Recent diagnosis of paroxysmal atrial fibrillation as a cause of intermittent episodes of nonexertional chest discomfort. She has had no further symptoms since being started on flecainide. Because of a high chads Vasc score she is also on Eliquis. Discussed with her and her partner the rationale for this regimen. Eliquis can be stopped three days prior to her upcoming back surgery, for which she is cleared. She should be at low risk of cardiac complications in the course of this. Late effects of spine fusion 07/16/2020 Prophylactic antibiotic 07/13/2020 Acute low back pain 07/11/2020 Overview (07/11/2020): Added automatically from request for surgery [id number] History of spinal fusion for scoliosis 0 Abnormal ECG 05/24/2019 Assessment & Plan (05/24/2019 12:38 PM CDT): EKG shows nonspecific ST-T abnormalities which are greater than were seen in June 2017. Based on this change, I have recommended a pharmacologic stress test for preoperative assessment. Clearance based on results thereof. 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 She had previously been on diltiazem for this, but is doing well without diltiazem at this time. Assessment & Plan (04/11/2021 7:22 AM CDT): She has had no recent symptoms. She remains asymptomatic despite being off diltiazem which had previously controlled her symptoms. Assessment & Plan (03/29/2021 8:54 AM CDT): Long history. She is currently asymptomatic. Recent Lexiscan reportedly nonischemic, although we are awaiting the official report. Assessment & Plan (01/14/2021 2:53 PM CDT): Quiescent on diltiazem which she should continue. Assessment & Plan (07/16/2020 1:56 PM BIOGEOGRAPHER): Well controlled with diltiazem which she should continue. Assessment & Plan (05/24/2019 12:26 PM CDT): Minimally symptomatic on diltiazem. She is not known to have coronary artery disease. Assessment & Plan (06/30/2017 4:48 PM BIOGEOGRAPHER): History of microvascular angina. Her exertional angina is worse now than it has previously been. She does have risk factors for coronary artery disease. Will obtain a pharmacologic stress test. If this shows no evidence of macrovascular ischemia, would then consider Ranexa for microvascular angina. Dyslipidemia 06/30/2017 Assessment & Plan (04/11/2021 7:22 AM CDT): She is on chronic lipid-lowering therapy. Assessment & Plan (01/14/2021 2:54 PM CDT): On chronic lipid lowering therapy with good control. No changes made. Assessment & Plan (05/24/2019 12:37 PM CDT): On chronic lipid lowering therapy with good control. No changes made. Assessment & Plan (06/30/2017 4:48 PM BIOGEOGRAPHER): On chronic lipid lowering therapy with good control. No changes made. Hx of decompressive lumbar laminectomy 7 Overview (02/18/2019): Overview: L4-5 and L5-S1 01/13/17 01/26/18: L2-3, L3-4 laminectomies, facetectomies, foraminotimies w/ fusion L3-5 Essential hypertension 04/13/2015 Orthopedic aftercare 12/29/2014 History of bilateral total hip arthroplasty 09/25 Overview (02/18/2019): Overview: Left 07/07/14 Right 11/24/14 Follow-up examination following surgery 08/02/19 15 Arthralgia of hip 05/16/2014 Neck pain 01/18/2014 Lumbago 11/24/2013 Tinnitus, subjective 07/01/2013 Active cochleovestibular Meniere's disease 08/18 Sensorineural hearing loss (SNHL) of both ears 0 08/18/2012 Major depressive disorder, single episode, moder ate 05/13/2012 Tinnitus 04/26/2012 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 Assessment & Plan (04/11/2021 7:24 AM CDT): On chronic lipid lowering therapy with good control. No changes made. Chronic nonseasonal allergic rhinitis due to ainsley bryson 05/17/2009 Primary osteoarthritis involving multiple joints 05/17/2009 S/P laparoscopic cholecystectomy 05/17/2009 Resolved Problems Problem Noted Date Diagnosed Date Resolved Date Heart bloc atrioventricular 04/02/2021 04/15/2021 Heart block atrioventricular 03/28/2021 04/15/2021 Assessment & Plan (04/11/2021 7:25 AM CDT): Samir two second-degree AV block documented while she was on flecainide and diltiazem. She is now off those and is feeling better. An event monitor is in place. If her device cannot be implanted prior to her upcoming trip, it may be reasonable to put it off until after her return in the absence of symptoms if her event monitor is showing no high-grade block; will confer with Dr. Recio about this. Assessment & Plan (03/29/2021 8:56 AM CDT): Recent EKGs as well as current rhythm strips demonstrate second-degree AV block. I do not see any lengthening of the MN interval prior to a nonconducted sinus beat, so I believe that this is Mobitz two, but will defer to Dr. Recio for his opinion. This is occurring on a background of alternating left and right bundle branch block, representing an unstable conduction system. Based on this, I suspect that her recent symptoms have been related to heart block. Her AV block may be aggravated by diltiazem but she has been on a stable dosage which she has previously tolerated. AV block as well as bundle branch block may be aggravated by flecainide, but she does require treatment for paroxysmal atrial fibrillation. Pacemaker implantation is under consideration. Echocardiogram on 06/28/2020 at [facility] demonstrated an EF greater than 70%; will repeat. Immunizations Name Administration Dates Next Due Influenza, Quadrivalent, Hig h Dose, Preservative Free, Intrr 03/31/2021,04/10/2020 Influenza, Trivalent, High D ose, Split, Preservative Free, Intramuscular 05/07/2019,05/04/2018 Influenza, Trivalent, IM (MDV) 9,05/04/2018,04/15/2017,05/25,05/16/2015,05/05/2014,05/13/2013 ,05/04/2012,04/26/2011,05/03/2009 Influenza, Unspecified 03/27/2020 Pneumococcal Conjugate PCV 13 10/12/2015 Pneumococcal Polysaccharide PPV23 05/04/2018,07/2009 ZOSTER LIVE 04/26/2010 ZOSTER Recombinant 07/29/2018,05/24/2018 Social History Tobacco Use Types Packs/Day Years Used Date Smoking Tobacco: Never Smokeless Tobacco: Never Tobacco Cessation:Counseling Given: Not Answered Alcohol Use Standard Drinks/Week Comments Yes 5 [...] materials from doctor or pharmacy Never 02/24/2024 [facility] Utilities Answer Date Recorded In the past [...] often do you attend chur ch or muslim services? Never 02/22/2024 Do you belong to any clubs o r organizations such as orthodox groups, unions, fraternal or athletic groups, or [...] any time in the past [address] [facility], were you homeless or living in a assisted (including now)? No 01/07/2024 Personal Safety Answer Date Recorded Have you ever been in or are you currently in a harmful physical or emotional relationship or is someone making you feel afraid or unsafe? Denies 01/06/2024 Comments No Sex and Gender Information Value Date Recorded Sex Assigned at Not on file Legal Sex Female 9:09 PM BIOGEOGRAPHER Gender Identity Not on file Sexual Orientation Lesbian 05/24/2019 9: 06 AM CDT Last Filed Vital Signs Vital Sign Reading Time Taken Comments Blood Pressure 128/82 04/04/2024 1:26 PM CDT Pulse 60 04/04/2024 1:26 PM CDT Temperature 36.1 ??C (97 ??F) 02/24/2024 10:25 AM CDT Respiratory Rate 18 02/24/2024 10:25 AM CDT Oxygen Saturation 96% 02/24/2024 10:25 AM CDT Inhaled Oxygen Concentration - - Weight 79.4 kg (175 lb) 06/07/2024 7:39 AM BIOGEOGRAPHER Height 162.6 cm (5' 4 ) 06/07/2024 7:39 AM BIOGEOGRAPHER Body Mass Index 30.04 06/07/2024 7:39 AM BIOGEOGRAPHER Plan of Treatment Not on file Medical Devices Implanted Type Area Food Counselor Device Identifier Shelf Expiration Date Model / Serial / Lot What's Trending D152 Dynagen Enduralife Easyview Hf Perspectiv 5.37x7.68cm 2 Chamber - [id number] - [id number] Implanted:Qty: 1 on 06/05/2021 by Ashvin Recio III, MD at [facility] ICD Quanttus Mayelin [id number] 06/16/2021 D152 / [id number] / [employer] Mayelin 7841 Lead 7841 Endocardial Pacing Mr Is-1 Bipolar Connection - [id number] - [id number] Implanted:Qty: 1 on 06/05/2021 by Ashvin Recio III, MD at [facility] Lead [employer]elin [id number] 04/12/2023 7841 / [id number] / [employer] Mayelin 0672 Maybee 4-Front 59cm Active Fixation Lead Icd - [id number] - [id number] Implanted:Qty: 1 on 06/05/2021 by Ashvin Recio III, MD at [facility] Lead [employer]elin [id number] 03/24/2023 0672 / [id number] / Cochlear [employer] [id number] Implant Cochlear Cochlear Nucleus Profile Plus Slim Modiolar Electrode [id number] - [id number] - [id number] Implanted:Qty: 1 on 06/19/2020 by Darshana Toth MD at [facility] Medicine Other - see comments [employer]chle[employer] 03/12/2022 [id number] / [id number] / Description:Nucleus Cochlear Implant [email or web address] es Check list [email or web address]?MOD=AJPERES&CONVERT_TO=url&[email or web address] MRI [email or web address] [email or web address]?MOD=AJPERES&CONVERT_TO=url&[email or web address] Screws Spine Lumbar Bilateral Total Hip Arthroplasty Bilateral: Hip Depuy Spine [id number] Expedium 1 Inner Monoaxial Spine Screw Set Titanium - [id number] Implanted:Qty: 8 on 07/25/2020 by Jeremy Michelle MD at [facility] N/A: Spine Thoracic Depuy Spine [id number] / / Allosource [id number] Crushed Chip Frozen Graft 30ml Bone Cancellous - [id number] Implanted:Qty: 1 on 07/25/2020 by Jeremy Michelle MD at [facility] [employer] 01/31/2025 [id number] / / [id number] Medtronic Sofamor Danek [id number] Infuse 18mm 26mm Absorbable Sponge Sterile Water Syringe Needle - [id number] Implanted:Qty: 1 on 07/25/2020 by Jeremy Michelle MD at [facility] Med[employer]onic Inc 02/24/2021 [id number] / / [id number] Allosource [id number] Crushed Chip Frozen Graft 30ml Bone Cancellous - [id number] Implanted:Qty: 1 on 07/25/2020 by Jeremy Michelle MD at [facility] N/A: Spine Thoracic Allosource 01/29/2025 [id number] / / [id number] Depuy Spine [id number] Expedium 6.5mm 60mm Polyaxial Spine Screw Bone Titanium 5.5mm El - [id number] Implanted:Qty: 2 on 07/25/2020 by Jeremy Michelle MD at [facility] N/A: Spine Thoracic Depuy Spine [id number] / / Depuy Spine [id number] Expedium 7mm 55mm 1 Innie Polyaxial Spine Screw Bone Titanium - [id number] Implanted:Qty: 3 on 07/25/2020 by Jeremy Michelle MD at [facility] N/A: Spine Thoracic Depuy Spine [id number] / / Depuy Spine [id number] Expedium 7mm 50mm 1 Innie Polyaxial Spine Screw Bone Titanium - [id number] Implanted:Qty: 3 on 07/25/2020 by Jeremy Michelle MD at [facility] N/A: Spine Thoracic Depuy Spine [id number] / / Depuy Spine [id number] Expedium 5.5mm 85mm Line Prebent El Spinal Titanium Nonsterile - [id number] Implanted:Qty: 2 on 07/25/2020 by Jeremy Michelle MD at [facility] N/A: Spine Thoracic Depuy Spine [id number] / / Allosource Crushed Chip Frozen Graft 90ml Bone Cancellous [id number] - [id number] Implanted:Qty: 1 on 12/02/2023 by Jeremy Michelle MD at [facility] N/A: Spine Lumbar Allosource 01/15/2028 [id number] / / [id number] Depuy Synthes Spine Substitute Bone Graft Fibergraft Large Bioactive Glass Putty [id number] - [id number] Implanted:Qty: 1 on 12/02/2023 by Jeremy Michelle MD at [facility] N/A: Spine Lumbar Depuy Synthes Spine [id number] 04/22/2026 [id number] / / [id number] Medtronic Inc Kit Graft Bone Sponge Xlg Infuse 8cc Granules [id number] - [id number] Implanted:Qty: 1 on 12/02/2023 by Jeremy Michelle MD at [facility] N/A: Spine Thoracic Medtronic Inc [id number] 01/24/2025 [id number] / / [id number] Medtronic Inc Kit Graft Bone Sponge Xlg Infuse 8cc Granules [id number] - [id number] Implanted:Qty: 1 on 12/02/2023 by Jeremy Michelle MD at [facility] N/A: Spine Thoracic Med[employer]onic Inc [id number] 01/24/2025 [id number] / / [id number] Medtronic Inc Kit Graft Bone Sponge Xlg Infuse 8cc Granules [id number] - [id number] Implanted:Qty: 1 on 12/02/2023 by Jeremy Michelle MD at [facility] N/A: Spine Thoracic Medtronic Inc [id number] 01/24/2025 [id number] / / [id number] Allosource Crushed Chip Frozen Graft 60ml Bone Cancellous [id number] - [id number] Implanted:Qty: 1 on 12/02/2023 by Jeremy Michelle MD at [facility] N/A: Spine Thoracic Allosource 06/18/2028 [id number] / / [id number] Depuy Synthes Spine Expedium 5mm 45mm Fix Spine Cortical Screw Bone Titanium 5.5mm [id number] - [id number] Implanted:Qty: 2 on 12/02/2023 by Jeremy Michelle MD at [facility] N/A: Spine Thoracic Depuy Synthes Spine [id number] / / Depuy Synthes Spine Expedium 5.5mm 45mm Polyaxial Spine Screw Bone Titanium 5.5mm El [id number] - [id number] Implanted:Qty: 1 on 12/02/2023 by Jeremy Michelle MD at [facility] N/A: Spine Thoracic Depuy Synthes Spine [id number] / / Depuy Synthes Spine Expedium 5.5mm 50mm Polyaxial Spine Screw Bone Titanium 5.5mm El [id number] - [id number] Implanted:Qty: 3 on 12/02/2023 by Jeremy Michelle MD at [facility] N/A: Spine Thoracic Depuy Synthes Spine [id number] / / Depuy Synthes Spine Expedium 1 Inner Monoaxial Spine Screw Set Titanium [id number] - [id number] Implanted:Qty: 14 on 12/02/2023 by Jeremy Michelle MD at [facility] N/A: Spine Thoracic Depuy Synthes Spine [id number] / / Depuy Synthes Spine Expedium 5.5mm 480mm El Spinal Titanium Nonsterile [id number] - [id number] Implanted:Qty: 2 on 12/02/2023 by Jeremy Michelle MD at [facility] N/A: Spine Thoracic Depuy Synthes Spine [id number] / / Depuy Synthes Spine Substitute Bone Graft Fibergraft Large Bioactive Glass Putty [id number] - [id number] Implanted:Qty: 2 on 12/02/2023 by Jeremy Michelle MD at [facility] N/A: Spine Thoracic Depuy Synthes Spine [id number] / / Depuy Synthes Spine Screw Viper 8x65mm [id number] - [id number] Implanted:Qty: 2 on 12/02/2023 by Jeremy Michelle MD at [facility] N/A: Spine Thoracic Depuy Synthes Spine [id number] / / Procedures Procedure Name Priority Date/Time Associated Diagnosis Comments XR SCOLIOSIS AP LAT Schedule Routine, Read Routine (OP Routine) 06/07/2024 8:25 AM BIOGEOGRAPHER Fusion of spine of lumbar region XR SPINE LUMBAR ROUTINE Schedule Routine, Read Routine (OP Routine) 06/07/2024 7:31 AM BIOGEOGRAPHER Fusion of spine of lumbar region DEVICE CHECK - REMOTE Routine 05/23/2024 2:24 PM CDT NICM (nonischemic cardiomyopathy) (CMS/HCC) (HCC) from Last 3 Months Results * XR Scoliosis AP LAT (06/07/2024 8:25 AM BIOGEOGRAPHER) Anatomical Region Laterality Modality Spine N/A Computed Radiogr aphy 06/07/2024 9:22 AM BIOGEOGRAPHER Impressions 06/07/2024 9:35 AM BIOGEOGRAPHER Unchanged posterior instrumented fusion from T10 through the pelvis with bilateral iliac screws. ??No significant coronal or sagittal imbalance. Dictated by: Young Choi M.D. The radiology attending physician has personally reviewed this study, and had reviewed and/or edited this written report and agrees with it. Electronically signed by: Randall Corrales D.O. 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 COMPARISON: Lumbar radiographs 06/07/2024, scoliosis radiographs 02/23/2024 FINDINGS: Standing frontal and lateral radiographs of the entire spine and lower extremities were obtained using the EOS system. No significant coronal or sagittal imbalance. ??No pelvic obliquity. No scoliosis. Posterior fusion instrumentation from T10 to pelvis including bilateral iliac screws. ??Instrumentation appears intact. ??Combined anterior interbody fusion of L2-S1. ??Mild to moderate degenerative disc disease at T9-T10. ??Mild multilevel mid cervical degenerative changes. Left subclavian approach pacemaker with leads overlying the right atrium and left ventricle. ??Postoperative changes of bilateral total hip arthroplasty. ??Moderate right acromioclavicular joint osteoarthritis. ??Right upper quadrant cholecystectomy clips. 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 COMPARISON: Lumbar radiographs 06/07/2024, scoliosis radiographs 02/23/2024 FINDINGS: Standing frontal and lateral radiographs of the entire spine and lower extremities were obtained using the EOS system. No significant coronal or sagittal imbalance. No pelvic obliquity. No scoliosis. Posterior fusion instrumentation from T10 to pelvis including bilateral iliac screws. Instrumentation appears intact. Combined anterior interbody fusion of L2-S1. Mild to moderate degenerative disc disease at T9-T10. Mild multilevel mid cervical degenerative changes. Left subclavian approach pacemaker with leads overlying the right atrium and left ventricle. Postoperative changes of bilateral total hip arthroplasty. Moderate right acromioclavicular joint osteoarthritis. Right upper quadrant cholecystectomy clips. IMPRESSION: Unchanged posterior instrumented fusion from T10 through the pelvis with bilateral iliac screws. No significant coronal or sagittal imbalance. Dictated by: Young Choi M.D. The radiology attending physician has personally reviewed this study, and had reviewed and/or edited this written report and agrees with it. Electronically signed by: Randall Corrales D.O. us Jeremy Michelle MD IMG XR PROCEDURES Fi nal Result * XR Spine Lumbar 4 or More Views (06/07/2024 7:31 AM BIOGEOGRAPHER) Anatomical Region Laterality Modality L-spine N/A Computed Radiogr aphy 06/07/2024 7:34 AM BIOGEOGRAPHER Impressions 06/07/2024 7:34 AM BIOGEOGRAPHER 1. ??Unchanged posterior instrumented fusion from T10 through the pelvis and bilateral iliac bones with combined interbody fusion from L2-S1. Electronically signed by: Eliecer Toscano M.D. Narrative 06/07/2024 7:34 AM BIOGEOGRAPHER EXAMINATION: XR SPINE LUMBAR 4 OR MORE VIEWS HISTORY: Lumbar spinal fusion FINDINGS: Comparison is made to scoliosis series 02/23/2024. Unchanged posterior instrumented spinal fusion from T10 through the pelvis and bilateral iliac bones with combined discectomy and interbody fusion from L2-S1. ??Instrumentation is intact. ??Partially imaged bilateral total hip arthroplasties in place. ??Moderate pubic symphysis arthrosis. ??Partially imaged cardiac pacemaker defibrillator lead in the right ventricle. ??Right upper quadrant surgical clips. Procedure Note Eliecer Siegel MD - 06/07/2024 EXAMINATION: XR SPINE LUMBAR 4 OR MORE VIEWS HISTORY: Lumbar spinal fusion FINDINGS: Comparison is made to scoliosis series 02/23/2024. Unchanged posterior instrumented spinal fusion from T10 through the pelvis and bilateral iliac bones with combined discectomy and interbody fusion from L2-S1. Instrumentation is intact. Partially imaged bilateral total hip arthroplasties in place. Moderate pubic symphysis arthrosis. Partially imaged cardiac pacemaker defibrillator lead in the right ventricle. Right upper quadrant surgical clips. IMPRESSION: 1. Unchanged posterior instrumented fusion from T10 through the pelvis and bilateral iliac bones with combined interbody fusion from L2-S1. Electronically signed by: Eliecer Toscano M.D. Jeremy Michelle MD IMG XR PROCEDURES Fi nal Result * DEVICE CHECK - REMOTE (05/23/2024 2:24 PM CDT) Anatomical Region Laterality Modality Other Narrative 05/27/2024 4:13 PM CDT Table formatting from the original result was not included. ICD CHECK (REMOTE) Patient ID: Macie Briseno is a 78 y.o. female This patient received a dakick ICD. ??They had a remote transmission on 05/23/2024. Device implant indications: ??Nonischemic cardiomyopathy, [place] type 2 ?? Interrogation of the patient's device demonstrates the following: Presenting EGM: ??A sense V sense @ 64 bpm Original Device Settings Right Atrium Right Ventricle Sensitivity (mV) 0.25 mV 0.6 mV Pacing Outputs 2.5 V @ 0.4 ms 2.5 V @ 0.4 ms ?? Testing Measurements Right Atrium Right Ventricle Sensitivity (mV) 5.4 mV >25 mV Impedence (Ohms) 537 ohms 442 ohms High Voltage Impedence ??77 ohms Pace Threshold Not done V @ ??ms Not done V @ ??ms Pacing % 45 % 1 % Battery Status: ??10.5 years to YURIDIA with Charge Time 9.7 seconds Episodes last 90 days/Comments: AF [place] <1%, longest duration 3 seconds. ?? No new ventricular events NORMAL DEVICE FUNCTION PROGRAMMED Medications: Anti-coagulant(s): ??Eliquis 5 mg twice a day Anti-arrhythmic(s): ??Amiodarone 200 mg daily, Lopressor 25 mg twice a day PLAN: 1) normal [place] scientific ICD evaluation. 2) [place] scientific remote transmission scheduled in 3 months. 3) Programming appropriate for device measurements Yanni David RN Ashvin Recio III, MD [facility] C[facility] SERVICES PROCEDURES Final Result from Last [address] [place] [address] [employer] MEDICARE [facility] MEDICARE AET[employer] MEDICARE Advance Directives For more information, please contact: [phone] * Full Code (Latest Code Status on File) Date Activated Date Inactivated Comments 01/07/2024 8:55 AM 01/08/2024 3:47 PM * Full Code Date Activated Date Inactivated Comments 12/02/2023 8:19 PM 12/14/2023 8:57 PM * Full Code Date Activated Date Inactivated Comments 06/05/2021 9:21 AM 06/05/2021 1:41 PM * Full Code Date Activated Date Inactivated Comments 03/28/2021 9:45 PM 03/29/2021 10:49 PM * Full Code Date Activated Date Inactivated Comments 07/25/2020 4:33 PM 07/29/2020 9:50 PM Healthcare Agents on File Name Relationship Healthcare Agent Relationship Communication Sunita Miranda Spouse Health Care Agent [email or web address] Pandya Friend First Alternate Health Care Agent Care Teams Advertising Layout Worker Relationship Specialty Start Date End Date Enmanuel Gan MD [address] [place] [address] PCP - General Internal Medicine 04/26/20 Tg Houston MD [address] [place] [address] Consulting Physician Cardiology 07/18/20 Guerrero Hunter, DPT [address] [facility] [address] [place] [address] Physical Therapist Physical Therapy 11/08/20 Guerrero Weiner, [facility] [address] [facility] [address] [place] [address] C Iron Worker Physical Therapy 12/12/20 Stephen Barth MD [address] [place] [address] Referring Physician Transplant 10/19/23
--- OUTSIDE RECORDS SUMMARY | 2024-07-12 08:36 | XMS_ITS | Encounter Summary ---
Author Organization [facility] Healthcare Address [address] [place] [address] Care Team Providers Care Hot Air Furnace Installer Repairer Name Role Phone Enmanuel Gan MD Primary Care Provider [phone] Tg Houston MD Unavailable [phone] Guerrero Hunter DPT Unavailable [phone] Guerrero Weiner ECHO VASCULAR TECHNOLOGIST Unavailable [phone] Stephen Barth MD Unavailable [phone] Reason for Referral * Diagnostic Imaging (Routine) - Pending Review Specialty Diagnoses / Procedures Referred By Contac t Referred To Contact Diagnoses Fusion of spine of lumbar region Procedures XR Spine Lumbar 4 or More Views Jeremy Michelle MD [address] [place] [address] Phone: tel: fax: [facility] Referral ID Status Reason Start Date Expiration Date V isits Requested Visits Authorized [id number] Pending Review 06/02/2024 07/02/[address] MO[address] Reason for Visit * Diagnostic Imaging (Routine) - Pending Review Specialty Diagnoses / Procedures Referred By Contac t Referred To Contact Diagnoses Fusion of spine of lumbar region Procedures XR Spine Lumbar 4 or More Views Jeremy Michelle MD [address] [place] [address] Phone: tel: fax: [facility] Referral ID Status Reason Start Date Expiration Date V isits Requested Visits Authorized [id number] Pending Review 06/02/2024 07/02/2025 1 1 Encounter Details Date Type Department Care Team (Latest Contact Info) Description 06/07/2024 7:15 AM ARTIST MODEL - 06/07/2024 11:59 PM ARTIST MODEL Hospital Encounter [facility] [address] [place] [address] Fusion of spine of lumbar region Discharge Disposition: Discharge to home or self care Social History Tobacco Use Types Packs/Day Years [...] materials from doctor or pharmacy Never 02/24/2024 [facility] Utilities Answer Date Recorded In the past 12 months has e electric, gas, oil, or water company [...] often do you attend chur ch or methodist services? Never 02/22/2024 Do you belong to any clubs o r organizations such as muslim groups, unions, fraternal or athletic groups, or [...] any time in the past 12 m [facility], were you homeless or living in a group home (including now)? No 01/07/2024 Personal Safety Answer Date Recorded Have you ever been in or are you currently in a harmful physical or emotional relationship or is someone making you feel afraid or unsafe? Denies 01/06/2024 Comments No Sex and Gender Information Value Date Recorded Sex Assigned at Not on file Legal Sex Female 9:09 PM ARTIST MODEL Gender Identity Not on file Sexual Orientation Lesbian 05/24/2019 9: 06 AM CDT documented as of this encounter Medications at Time of Discharge acetaminophen 500 mg capsuleIndications :Pain Take 2 capsules (1,000 mg total) by mouth every 6 (six) hours as needed for pain 01/08/2024 amiodarone (PACERONE) 200 mg tabletIndications: Prevention of Recurrent Atrial Fibrillation [The details of the medication are not available because there are pending changes by a home health clinician.] 30 tablet 12/14/2023 atorvastatin (LIPITOR) 20 mg tabletIndications: hyperlipidemia Take 1 tablet (20 mg total) by mouth nightly 07/29/2018 azelastine (ASTELIN) 137 mcg (0.1 %) nasal spray spray(s), 0 08/20/2023 calcium carbonate (CALCIUM 500 ORAL)Indications:S upplement Take 500 mg by mouth daily. Indications: Supplement cholecalciferol (VITAMIN D-3) 1,000 unit capsuleIndications :Vitamin D Deficiency Take 1,000 Units by mouth daily. Indications: low vitamin D levels doxepin (SINEquan) 25 mg capsule TAKE 1 TO 2 CAPSULES BY MOUTH EVERY DAY AT BEDTIME 03/20/[address] (CYMBALTA) 60 mg capsuleIndications :Anxiety with Depression Take 1 capsule (60 mg total) by mouth every morning 03/11/2023 Eliquis 5 mg tabletIndications: atrial fibrillation DO NOT TAKE THIS MEDICATION UNTIL AFTER YOU COMPLETE YOUR LOVENOX INJECTIONS (JANUARY 14, 2024). ON JANUARY 14, 2024 YOU MAY RESUME TAKING 5MG BY MOUTH TWICE A DAY. 01/08/2024 fexofenadine-pseud oephedrine (Kimberly-D 12 Hour) 60-120 mg per 12 hr tablet flutic tablet(s), 0 08/20/2023 fluticasone propionate (FLONASE) 50 mcg/actuation nasal spray 1 spray(s), Nasal, daily, 1 each, [place], 0 08/20/2023 magnesium citrate and oxide (magnesium citrate,mag oxide) 250 mg capsuleIndications :hypomagnesemia Take 250 mg by mouth daily. Indications: low amount of magnesium in the blood methocarbamoL (ROBAXIN) 750 mg tabletIndications: Muscle Spasm Take 1 tablet (750 mg total) by mouth every 8 (eight) hours 90 tablet 2 01/05/2024 potassium chloride ER (KLOR-CON) 20 mEq CR tabletIndications: Prevention of hypokalemia 2/2 diuretic use Take 20 mEq by mouth daily. Indications: Prevention of hypokalemia 2/2 diuretic use sucralfate (Carafate) 1 gram tablet 2 tablets (2 g total) 08/20/2023 metoprolol tartrate (LOPRESSOR) 50 mg immediate release tabletIndications: Atrial Arrhythmia Take 0.5 tablets (25 mg total) by mouth 2 (two) times a day 90 tablet 3 04/04/2024 4 documented as of this encounter Discharge Disposition Disposition Code Departure Means Destination Discharge to home or self care documented in this encounter Plan of Treatment Not on file documented as of this encounter Procedures Procedure Name Priority Date/Time Associated Diagnosis Comments XR SPINE LUMBAR ROUTINE Schedule Routine, Read Routine (OP Routine) 06/07/2024 7:31 AM ARTIST MODEL Fusion of spine of lumbar region documented in this encounter Results * XR Spine Lumbar 4 or More Views (06/07/2024 7:31 AM ARTIST MODEL) Anatomical Region Laterality Modality L-spine N/A Computed Radiogr aphy 06/07/2024 7:34 AM ARTIST MODEL Impressions 06/07/2024 7:34 AM ARTIST MODEL 1. ??Unchanged posterior instrumented fusion from T10 through the pelvis and bilateral iliac bones with combined interbody fusion from L2-S1. Electronically signed by: Eliecer Toscano M.D. Narrative 06/07/2024 7:34 AM ARTIST MODEL EXAMINATION: XR SPINE LUMBAR 4 OR MORE [...] MD IMG XR PROCEDURES Fi nal Result documented in this encounter Visit Diagnoses Diagnosis Fusion of spine of lumbar region documented in this encounter Care Teams Hot Air Furnace Installer Repairer Relationship Specialty Start Date End Date Enmanuel Gan MD [address] [place], [place] [id number] PCP - General Internal Medicine 04/26/20 Tg Houston MD [address] [place] [address] Consulting Physician Cardiology 07/18/20 Guerrero Hunter DPT [address] [facility] [address] [place] [address] Physical Therapist Physical Therapy 11/08/20 Guerrero Weiner, ECHO VASCULAR TECHNOLOGIST [address] [facility] [address] [place] [address] Director Of Epidemiology Physical Therapy 12/12/20 Stephen Barth MD [address] [facility] [address] [place] [address] Referring Physician Transplant 10/19/23 documented as of this encounter
--- OUTSIDE RECORDS SUMMARY | 2024-07-12 08:36 | XMS_ITS | Encounter Summary ---
Author Organization [facility] Healthcare Address [address] [place] [address] Care Team Providers Care Golf Club Maker Name Role Phone Enmanuel Gan MD Primary Care Provider [phone] Tg Houston MD Unavailable [phone] Guerrero Hunter DPT Unavailable [phone] Guerrero Weiner EXECUTIVE DIRECTOR CONTRACT SHOP Unavailable [phone] Stephen Barth MD Unavailable [phone] Encounter Details Date Type Department Care Team (Latest Contact Info) Description 06/07/2024 8:18 AM FISCAL OFFICER - 06/07/2024 11:59 PM [facility] Hospital Encounter [facility] [address] [place] [address] Jeremy Michelle MD [address] [facility] [address] Fusion of spine of lumbar region Discharge [...] materials from doctor or pharmacy Never 02/24/2024 [facility] Utilities Answer Date Recorded In the [...] often do you attend chur ch or confucianism services? Never 02/22/2024 Do you belong to any clubs o r organizations such as hinduism groups, unions, fraternal or athletic groups, or [...] any time in the past 12 m [facility], were you homeless or living in [...] on file Legal Sex Female 9:09 PM FISCAL OFFICER Gender Identity Not on file Sexual Orientation [...] spray 1 spray(s), Nasal, daily, 1 each, [place], 0 08/20/2023 magnesium citrate and oxide (magnesium [...] Read Routine (OP Routine) 06/07/2024 8:25 AM FISCAL OFFICER Fusion of spine of lumbar region documented in this encounter Results * XR Scoliosis AP LAT (06/07/2024 8:25 AM FISCAL OFFICER) Anatomical Region Laterality Modality Spine N/A Computed Radiogr aphy 06/07/2024 9:22 AM FISCAL OFFICER Impressions 06/07/2024 9:35 AM FISCAL OFFICER Unchanged posterior instrumented fusion from T10 through the pelvis with bilateral iliac screws. ??No significant coronal or sagittal imbalance. Dictated by: Young Choi M.D. The radiology attending physician has personally reviewed this study, and had reviewed and/or edited this written report and agrees with it. Electronically signed by: Randall Corrales D.O. Narrative 06/07/2024 9:35 AM FISCAL OFFICER EXAMINATION: XR SCOLIOSIS AP AND LATERAL HISTORY: [...] it. Electronically signed by: Randall Corrales D.O. Jeremy Michelle MD IMG XR PROCEDURES Fi nal Result documented in this encounter Visit Diagnoses Diagnosis Fusion of spine of lumbar region documented in this encounter Care Teams Golf Club Maker Relationship Specialty Start Date End Date Enmanuel Gan MD [address] [facility] [address] MED[address]INE [place], [place] [phone] PCP - General Internal Medicine 04/26/20 Tg Houston MD [address] [facility] [address] [place] [address] Consulting Physician Cardiology 07/18/20 Guerrero Hunter DPT [address] [facility] [address] [place] [address] Physical Therapist Physical Therapy 11/08/20 Guerrero Weiner, EXECUTIVE DIRECTOR CONTRACT SHOP [address] [facility] [address] [place] [address] Masonry Instructor Physical Therapy 12/12/20 Stephen Barth MD [address] [facility] [address] [place] [address] Referring Physician Transplant 10/19/23 documented as of this encounter
--- OUTSIDE RECORDS SUMMARY | 2024-07-12 08:36 | XMS_ITS | Encounter Summary ---
Author Organization [facility] Address [address] [place] [address] Phone Care Team Providers Care Fourdrinier Wire Weaver Name Role Phone Enmanuel Gan MD Primary Care Provider [phone] Tg Houston MD Unavailable [phone] Guerrero Hunter DPT Unavailable [phone] Guerrero Weiner OVERHEAD IRRIGATOR Unavailable [phone] Stephen Barth MD Unavailable [phone] Reason for Referral * Diagnostic Imaging (Routine) - Pending Review Specialty Diagnoses / Procedures Referred By Contac t Referred To Contact Diagnoses Fusion of spine of lumbar region Procedures XR Spine Lumbar 4 or More Views Jeremy Michelle MD [address] [facility] [address] [place] [address] Phone: tel: fax: [facility] Referral ID Status Reason Start Date Expiration Date V isits Requested Visits Authorized [id number] Pending Review 06/02/2024 07/02/2025 1 1 LINES MANAGER Reason for Visit * Reason Comments Post-op Encounter Details Date Type Department Care Team (Late st Contact Info) Description 06/07/2024 7:40 AM PIPELINES MANAGER Office Visit [facility] [address] [facility] [address] [place] [address] [place] [address] Jeremy Michelle MD [address] [facility] [address] [place] [address] Fusion of spine of lumbar region (Primary Dx) Social History Tobacco Use Types [...] materials from doctor or pharmacy Never 02/24/2024 [facility] Utilities Answer Date Recorded In the past 12 months has [employer], gas, oil, or water [employer] threatened to shut off services in your [...] often do you attend chur ch or mandaen services? Never 02/22/2024 Do you belong to any clubs o r organizations such as spiritism groups, unions, fraternal or athletic groups, or [...] time in the past [address] [facility], were you homeless or living in a [...] on file Legal Sex Female 9:09 PM PIPELINES MANAGER Gender Identity Not on file Sexual Orientation Lesbian 05/24/2019 9: 06 AM CDT documented as of this encounter Last Filed Vital Signs Vital Sign Reading Time Taken Comments Blood Pressure - - Pulse - - Temperature - - Respiratory Rate - - Oxygen Saturation - - Inhaled Oxygen Concentration - - Weight 79.4 kg (175 lb) 06/07/2024 7:39 AM PIPELINES MANAGER Height 162.6 cm (5' 4 ) 06/07/2024 7:39 AM PIPELINES MANAGER Body Mass Index 30.04 06/07/2024 7:39 AM PIPELINES MANAGER documented in this encounter Patient Instructions * Patient Instructions* Cyndie Byers RN - 06/07/2024 7:40 AM PIPELINES MANAGER Thank you for your visit today we are pleased to be here to assist with your spine needs. Sincerely, Dr. Jeremy Michelle & Cyndie Byers RN Please contact Dr. Miguel Angel Agee's Nurse if you have any questions. For Mailing information: Attn: Jeremy Michelle/ Cyndie HANEY [facility] [address] [place] [address] [id number] [place] [address] Thoracic and lumbar fusion activity guidelines- 6 - 12 months after surgery Spinal fusion precautions: -No bending or twisting at the waist -No hip flexion more than 90 degrees or crossing the legs -No lifting more than 30lbs -No NSAIDs Activities and exercises: -All previously recommended exercises -Swimming with a kickboard (no spinal rotation or arching), snorkeling -Light jogging -Use of weight machines for upper & lower extremities up to 30lbs, no overhead lifting or spine-stressing exercises, must maintain precautions -Moderate hiking, no heavy backpacks -Hunting with cross bows and firearms with minimal kick -Cross country skiing -Free throws, hitting tennis balls, kicking soccer ball, playing catch (must maintain precautions) Tips and advice: All of the above activities must be done with the spine precautions in mind -Add new activities gradually, no more than 1 per week -If it hurts, stop this activity and wait a few weeks before trying it again -You must use steps to get in/out of pools, no pool ladders -[place], more frequent periods of activity and exercise are better tolerated than one long period -Gradually increase activity to at least 30 minutes of cardiovascular exercise 5-6 days/ week and strength training 2-3 days/week LINES MANAGER documented in this encounter Progress Notes * Jeremy Michelle MD - 06/07/2024 7:40 AM CST Images from the original note were not included. Established Patient Visit Interim History Macie Briseno returns to our office today for follow up. She is now 6 months out from her revision surgery. She is doing very well at this time. She has some vague dull pain that she gets around her mid back when she is up ambulating some but otherwise doing well --she says everything much improved from before. Been working with PT to work on gait and strength and has been improving. Physical Examination Intact throughout C5 through T1 L2 through S1 bilateral upper and lower extremities motor and sensory motor 5/5 throughout. Ambulates with excellent gait excellent posture in clinic today. Review of Plain Radiographs/Studies Imaging reviewed by me. No complications with instrumentation no evidence of pull out or failure atthis time. Alignment looks outstanding. Impression/Diagnosis/Treatment Plan Doing very well now 6 months out from revision thoracolumbar decompression fusion. We discussed lifting limitations and risk of PJK.We will see her in another 3 months she is going to continue with her physical therapy at this time. All questions answered today patient agrees with the plan Jeremy Michelle MD PhD [employer] [facility] [employer] Teacher[employer]andrel Maker of Neurological [facility], [place] Wire Weaver done by [employer]; therefore, variances and inaccuracies may occur. I reviewed the patient problem list pertinent to the visit today, but the entire patient problem list was not reviewed today. LINES MANAGER documented in this encounter Plan of Treatment Not on file documented as of this encounter Results * XR Scoliosis AP LAT (06/07/2024 8:25 AM PIPELINES MANAGER) Anatomical Region Laterality Modality Spine N/A Computed Radiogr aphy 06/07/2024 9:22 AM PIPELINES MANAGER Impressions 06/07/2024 9:35 AM PIPELINES MANAGER Unchanged posterior instrumented fusion from T10 through the pelvis with bilateral iliac screws. ??No significant coronal or sagittal imbalance. Dictated by: Young Choi M.D. The radiology attending physician has personally reviewed this study, and had reviewed and/or edited this written report and agrees with it. Electronically signed by: Randall Corrales D.O. Narrative 06/07/2024 9:35 AM PIPELINES MANAGER EXAMINATION: XR SCOLIOSIS AP AND LATERAL HISTORY: [...] ??Right upper quadrant cholecystectomy clips. Procedure Note Savanna Randallmavis Olsen, DO - 06/07/2024 EXAMINATION: XR SCOLIOSIS AP [...] 4 or More Views (06/07/2024 7:31 AM PIPELINES MANAGER) Anatomical Region Laterality Modality L-spine N/A Computed Radiogr aphy 06/07/2024 7:3 4 AM PIPELINES MANAGER Impressions 06/07/2024 7:34 AM PIPELINES MANAGER 1. ??Unchanged posterior instrumented fusion from T10 through the pelvis and bilateral iliac bones with combined interbody fusion from L2-S1. Electronically signed by: Eliecer Toscano M.D. Narrative 06/07/2024 7:34 AM PIPELINES MANAGER EXAMINATION: XR SPINE LUMBAR 4 OR MORE [...] L2-S1. Electronically signed by: Eliecer Toscano M.D. 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 Indications: an allergic reaction Therapy completed 02/10/2024 06/07/2024 alendronate (FOSAMAX) 70 mg tabletIndications:Post-M enopausal Osteoporosis Take 70 mg by mouth every 7 days. On Thursday Indications: decreased bone mass following menopause Therapy completed 06/07/2024 furosemide (LASIX) 40 mg tabletIndications:Pulmon shereen Edema due to Chronic Heart Failure Take 40 mg by mouth daily. Indications: fluid in the lungs due to chronic heart failure Therapy completed 02/08/2024 06/07/2024 documented as of this encounter Historical Medications * This list may reflect changes made after this encounter. fexofenadine-pseu doephedrine (Kimberly-D 12 Hour) 60-120 mg per 12 hr tablet flutic tablet(s), 0 08/20/2023 doxepin (SINEquan) 25 mg capsule TAKE 1 TO 2 CAPSULES BY MOUTH EVERY DAY AT BEDTIME 03/20/2024 added in this encounter Care Teams Fourdrinier Wire Weaver Relationship Specialty Start Date End Date Enmanuel Gan MD [address] [place] [address] PCP - General Internal Medicine 04/26/20 Tg Houston MD [address] [place] [address] Consulting Physician Cardiology 07/18/20 Guerrero Hunter DPT [address] [facility] [address] [facility] [place] [address] Physical Therapist Physical Therapy 11/08/20 Guerrero Weiner, [facility] [id number] [place], [place] [id number] Marketing Support Assistant Physical Therapy 12/12/20 Stephen Barth MD [address] [place] [address] Referring Physician Transplant 10/19/23 documented as of this encounter
--- OUTSIDE RECORDS SUMMARY | 2024-07-12 08:36 | XMS_ITS | Clinical Summary ---
Author Organization [facility] HealthCare Care Team Providers Care Catalytic Converter Operator Helper Name Role Phone Enmanuel Gan MD Primary Care Provider [phone] Tg Houston MD Unavailable Guerrero Hunter DPT Unavailable [phone] Guerrero Weiner HEAD BAKER Unavailable [phone] Stephen Barth MD Unavailable Allergies Active Allergy Reactions Criticality Noted Date [...] a home health clinician.] 30 tablet 12/14/19 Active Additional Information Patient not taking.Reported on [...] (six) hours as needed for pain 01/08/20 Active cholecalciferol (VITAMIN D-3) 1,000 unit capsuleIndicatio [...] spray 1 spray(s), Nasal, daily, 1 each, [place], 0 08/20/19 24 Active sucralfate (Carafate) 1 [...] STI testing today. Infection of lumbar spine (CMS/HCC) 01/06/2024 Assessment & Plan (02/23/2024 9:28 AM [...] SNIDER (dyspnea on exertion) 11/28/2022 ICD (implantable cardioverter-defibrillator), arnold valadez, in situ 06/06/2021 Overview (06/06/2021): [place] Sci DDD Dynagen ICD imp on 06/05/21 for NICM/Mob II/NSVT. Hemal (EP-following) [place] (Card) - Latitude Fusion of spine of [...] arrange for dual chamber ICD implantation w/anesthesia (Farelogix). --Hold beta nayana. --Flecainide stopped indefinitely. --Hold apixaban for 2 days prior to procedure. Apical variant hypertrophic cardiomyopathy 04/15 Assessment & Plan (07/09/2021 3:33 PM ACCOUNT REVIEW SPECIALIST): Apical hypertrophic cardiomyopathy without evidence of congestive [...] evaluation Assessment & Plan (07/09/2021 3:33 PM ACCOUNT REVIEW SPECIALIST): Chronically anticoagulated with Eliquis. Assessment & Plan [...] interval. Assessment & Plan (07/16/2020 1:56 PM ACCOUNT REVIEW SPECIALIST): Recent diagnosis of paroxysmal atrial fibrillation as [...] (07/11/2020): Added automatically from request for surgery [id number] History of spinal fusion for scoliosis 0 [...] 06/30/2017 Assessment & Plan (07/09/2021 3:33 PM ACCOUNT REVIEW SPECIALIST): No recent symptoms. She had previously been [...] continue. Assessment & Plan (07/16/2020 1:56 PM ACCOUNT REVIEW SPECIALIST): Well controlled with diltiazem which she should continue. Assessment & Plan (05/24/2019 12:26 PM CDT): Minimally symptomatic on diltiazem. She is not known to have coronary artery disease. Assessment & Plan (06/30/2017 4:48 PM ACCOUNT REVIEW SPECIALIST): History of microvascular angina. Her exertional angina [...] made. Assessment & Plan (06/30/2017 4:48 PM ACCOUNT REVIEW SPECIALIST): On chronic lipid lowering therapy with good control. No changes made. Hx of decompressive lumbar laminectomy 7 Overview (02/18/2019): Overview: L4-5 and L5-S1 01/13/17 01/26/18: L2-3, L3-4 laminectomies, facetectomies, foraminotimies w/ fusion L3-5 Essential hypertension 04/13/2015 Orthopedic aftercare 12/29/2014 History of bilateral total hip arthroplasty 09/25 Overview (02/18/2019): Overview: Left 07/07/14 Right 11/24/14 Follow-up examination following surgery 08/02/19 Arthralgia of hip 05/16/2014 Neck pain 01/18/2014 Lumbago 11/24/2013 Tinnitus, subjective 07/01/2013 Active cochleovestibular Meniere's disease 08/18 Sensorineural hearing loss (SNHL) of both ears 0 08/18/2012 Major depressive disorder, single episode, moder ate 05/13/2012 Tinnitus 04/26/2012 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 Assessment & [...] do not see any lengthening of the MA interval prior to a nonconducted sinus beat, [...] is under consideration. Echocardiogram on 06/28/2020 at [facility] demonstrated an EF greater than 70%; will repeat. Encounters Date Type Department Care Team Description 07/06/2024 Telephone [facility] [address] [place] [address] [place] [address] [phone] Ashvin Recio III, MD Med Refill 06/07/2024 8:18 AM ACCOUNT REVIEW SPECIALIST - 06/07/2024 11:59 PM ACCOUNT REVIEW SPECIALIST Hospital Encounter [facility] [address] [place] [id number] Jeremy Michelle MD Fusion of spine of lumbar region Discharge Disposition: Discharge to home or self care 06/07/2024 7:40 AM ACCOUNT REVIEW SPECIALIST Office Visit [facility] Orthopaedic Surgery [address] [place] [address] for Advanced Medicine 6th [place] [address] [place] [address] Jeremy Michelle MD Fusion of spine of lumbar region (Primary Dx) 06/07/2024 7:15 AM ACCOUNT REVIEW SPECIALIST - 06/07/2024 11:59 PM ACCOUNT REVIEW SPECIALIST Hospital Encounter [facility] [address] [place] [phone] Fusion of spine of lumbar region Discharge Disposition: Discharge to home or self care 05/23/2024 9:45 AM CDT Ancillary Procedure [facility] [address] [place] [address] [address], [place] [address] ICD (implantable cardioverter-defibr illator), dual, in situ (Primary Dx); NICM (nonischemic cardiomyopathy) (CMS/HCC) (HCC) 05/23/2024 Orders Only [facility] [address] [place] [address] Ashvin Recio III, MD NICM (nonischemic cardiomyopathy) (CMS/HCC) (HCC) (Primary Dx) 05/23/2024 Telephone [facility] Orthopaedic Surgery [facility] Advanced [facility] 6th [place] [address] [place] [address] Jeremy Michelle MD [facility] 05/31/24 appt with [facility] from Last 3 Months Immunizations Name Administration Dates Next Due Influenza, Quadrivalent, Hig h Dose, Preservative Free, Intrr 03/31/2021,04/10/2020 Influenza, Trivalent, High D ose, Split, Preservative Free, Intramuscular 05/07/2019,05/04/2018 Influenza, Trivalent, IM (MDV) 9,05/04/2018,04/15/2017,05/25,05/16/2015,05/05/2014,05/13/2013 ,05/04/2012,04/26/2011,05/03/2009 Influenza, Unspecified 03/27/2020 Pneumococcal Conjugate PCV 13 10/12/2015 Pneumococcal Polysaccharide PPV23 05/04/2018,07/2009 ZOSTER LIVE 04/26/2010 ZOSTER Recombinant 07/29/2018,05/24/2018 Surgical History Surgery Date Site/Laterality Comments OTHER SURGICAL HISTORY 07/27/1998 - 1999 Sectioning of left vesibular nerve CHOLECYSTECTOMY Cholecystectomy JOINT REPLACEMENT Hip replacement, L - 2013, R - 2014 - [facility] BACK SURGERY 07/27/2016 - 2017 REVISION November 2023; lower back, 2017, 2018 VESTIBULAR NERVE SECTION Left COCHLEAR IMPLANT 06/19/2020 Left IR INJECTION ARTHROGRAM SI JOINT BILATERAL WITH GUIDANCE 02/15/2021 Bilateral TOTAL HIP ARTHROPLASTY 07/27/2013 - 2014 Bilateral IR INJECTION ARTHROGRAM SI JOINT LEFT INCLUDES IMAGING GUIDANCE 09/06/2021 Left BRAIN SURGERY Left Ear cochlear implant 2019 SPINE SURGERY 2016, 2017, 2018, 2019 Medical History Medical History Date Comments Auditory vertigo Meniere's disea se Meniere's disease Microvascular angina (HCC) HLD (hyperlipidemia) Atrial fibrillation (CMS/HCC) (HCC) Allergic rhinitis HL (hearing loss) Tinnitus Coronary artery disease Anxiety unknown maybe 1989 Arthritis 2018 Osteoporosis 2014 Depression 1990 Heart disease Afib 2019 Mixed conductive and sensorineural hearing loss 1989 Family History Medical History Relation Name Comments No Known Problems Brother No Known Problems Father No Known Problems Father's Brother No Known Problems Father's Sister No Known Problems Maternal Grandfather No Known Problems Maternal Grandmother Cancer Mother Ann Briseno Lung Cancer Hypertension Mother Ann Briseno Lung Cancer No Known Problems Mother's Brother No Known Problems Mother's Sister No Known Problems Paternal Grandfather No Known Problems Paternal Grandmother No Known Problems Sister Anemia Neg Hx Anesthesia problems Neg Hx Arrhythmia Neg Hx Asthma Neg Hx Clotting disorder Neg Hx Fainting Neg Hx Heart attack Neg Hx Heart disease Neg Hx Heart failure Neg Hx Hyperlipidemia Neg Hx Hypertrophic cardiomyopathy Neg Hx Malig Hypertension Neg Hx Malig Hyperthermia Neg Hx Pseudochol deficiency Neg Hx Stroke Neg Hx Sudden Cardiac Neg Hx Relation Name Status Comments Brother Father Father's Brother Father's Sister Maternal Grandfather Maternal Grandmother Mother Ann Briseno Lung Cancer Mother's Brother Mother's Sister Paternal Grandfather Paternal Grandmother Sister Social History Tobacco Use Types Packs/Day Years [...] materials from doctor or pharmacy Never 02/24/2024 [facility] Utilities Answer Date Recorded In the past 12 months has th e Yours [employer], gas, oil, or water company threatened to [...] often do you attend chur ch or adventism services? Never 02/22/2024 Do you belong to any clubs o r organizations such as religion groups, unions, fraternal or athletic groups, or [...] any time in the past 12 m [facility], were you homeless or living in a fdc (including now)? No 01/07/2024 Personal Safety Answer Date Recorded Have you ever been in or are you currently in a harmful physical or emotional relationship or is someone making you feel afraid or unsafe? Denies 01/06/2024 Comments No Sex and Gender Information Value Date Recorded Sex Assigned at Not on file Legal Sex Female 9:09 PM ACCOUNT REVIEW SPECIALIST Gender Identity Not on file Sexual Orientation Lesbian 05/24/2019 9: 06 AM CDT Obstetrics History Last Filed Vital Signs Vital Sign Reading Time Taken Comments Blood Pressure 128/82 04/04/2024 1:26 PM CDT Pulse 60 04/04/2024 1:26 PM CDT Temperature 36.1 ??C (97 ??F) 02/24/2024 10:25 AM CDT Respiratory Rate 18 02/24/2024 10:25 AM CDT Oxygen Saturation 96% 02/24/2024 10:25 AM CDT Inhaled Oxygen Concentration - - Weight 79.4 kg (175 lb) 06/07/2024 7:39 AM ACCOUNT REVIEW SPECIALIST Height 162.6 cm (5' 4 ) 06/07/2024 7:39 AM ACCOUNT REVIEW SPECIALIST Body Mass Index 30.04 06/07/2024 7:39 AM ACCOUNT REVIEW SPECIALIST Plan of Treatment Health Maintenance Due Date Last Done Comments Hepatitis C Screening 1945 DTaP/Tdap/Td Vaccine (1 - Tdap) 1957 Hepatitis B Screening 1964 Well Visit 65+ 2011 Osteoporosis Screening-Bone Density Scan 08/23/2017 08/23/2015 Covid-19 Vaccine (4 - 2023-2 5 season) 2024 06/10/2021, 10/15/2020, 09/13/2020 Influenza Vaccine (#1) 2024 , 03/31/2021, 04/10/2020, Additional history exists Depression Screening 01/04/2025 01/05/2024 Fall Risk Assessment 01/07/2025 01/08/2024, 11/29/19 23 Breast Cancer Screening-Mammogram Discontinued 013 Pneumococcal vaccine 65+ Completed 018, 10/12/2015, 04/26/2010 Zoster Vaccine Completed 07/29/2018, 04/27, 04/26/2010 Medical Devices Implanted Type Area Hide And Skin Fleshing Machine Operator Device Identifier Shelf Expiration Date Model / Serial / Lot [place] [employer] D152 Dynagen Enduralife Easyview Hf Perspectiv 5.37x7.68cm 2 Chamber - [id number] - [id number] Implanted:Qty: 1 on 06/05/2021 by Ashvin Recio III, MD at [facility] ICD [place] [employer] [id number] 06/16/2021 D152 / [id number] / [place] [employer]elin 7841 Lead 7841 Endocardial Pacing Mr Is-1 Bipolar Connection - [id number] - [id number] Implanted:Qty: 1 on 06/05/2021 by Ashvin Recio III, MD at [facility] Lead [place] [employer] [id number] 04/12/2023 7841 / [id number] / [place] [employer] Mayelin 0672 [place] 4-Front 59cm Active Fixation Lead Icd - [id number] - [id number] Implanted:Qty: 1 on 06/05/2021 by Ashvin Recio III, MD at [facility] Lead [place] [employer] [id number] 03/24/2023 0672 / [id number] / Cochlear Americas [id number] Implant Cochlear Cochlear Nucleus Profile Plus Slim Modiolar Electrode Ci632 - [id number] - [id number] Implanted:Qty: 1 on 06/19/2020 by Darshana Toth MD at [facility] Other - see comments Cochlear Americas 03/12/2022 [id number] / [id number] / Description:Nucleus Cochlear Implant https://www.cochlear.com/us/en/professionals/qffetyuos-hqx-ofxqlbba/mri-guidelin es Check list https://www.[email or web address]_KH_Y HI- L_USA_WEB.pdf?MOD=AJPERES&CONVERT_TO=url&CACHEID=[email or web address]-[email or web address] MRI paremeters [email or web address]_ZN_A RI- _USA_WEB.pdf?MOD=AJPERES&CONVERT_TO=url&CACHEID=[email or web address] Screws Spine Lumbar Bilateral Total Hip Arthroplasty Bilateral: Hip Depuy Spine [id number] Expedium 1 Inner Monoaxial Spine Screw Set Titanium - [id number] Implanted:Qty: 8 on 07/25/2020 by Jeremy Michelle MD at [facility] N/A: Spine Thoracic Depuy Spine [id number] / / Allosource [id number] Crushed Chip Frozen Graft 30ml Bone Cancellous - [id number] Implanted:Qty: 1 on 07/25/2020 by Jeremy Michelle MD at [facility] Allosource 01/31/2025 [id number] / / [id number] Medtronic Sofamor Danek [id number] Infuse 18mm 26mm Absorbable Sponge Sterile Water Syringe Needle - [id number] Implanted:Qty: 1 on 07/25/2020 by Jeremy Michelle MD at [facility] Medtronic Inc 02/24/2021 [id number] / / [id number] Allosource [id number] Crushed Chip Frozen Graft 30ml Bone Cancellous - [id number] Implanted:Qty: 1 on 07/25/2020 by Jeremy Michelle MD at [facility] N/A: Spine Thoracic Allosource 01/29/2025 [id number] / / [id number] Depuy Spine [id number] Expedium 6.5mm 60mm Polyaxial Spine Screw Bone Titanium 5.5mm El - [id number] Implanted:Qty: 2 on 07/25/2020 by Jeremy Michelle MD at [facility] N/A: Spine Thoracic Depuy Spine [id number] / / Depuy Spine [id number] Expedium 7mm 55mm 1 Innie Polyaxial Spine Screw Bone Titanium - [id number] Implanted:Qty: 3 on 07/25/2020 by Jeremy Michelle MD at [facility] N/A: Spine Thoracic Depuy Spine [id number] / / Depuy Spine [id number] Expedium 7mm 50mm 1 Innie Polyaxial Spine Screw Bone Titanium - [id number] Implanted:Qty: 3 on 07/25/2020 by Jeremy Michelle MD at [facility] N/A: Spine Thoracic Depuy Spine [id number] / / Depuy Spine [id number] Expedium 5.5mm 85mm Line Prebent El Spinal Titanium Nonsterile - [id number] Implanted:Qty: 2 on 07/25/2020 by Jeremy Michelle MD at [facility] N/A: Spine Thoracic Depuy Spine [id number] / / Allosource Crushed Chip Frozen Graft 90ml Bone Cancellous [id number] - [id number] Implanted:Qty: 1 on 12/02/2023 by Jeremy Michelle MD at [facility] N/A: Spine Lumbar Allosource 01/15/2028 [id number] / / [id number] Depuy Synthes Spine Substitute Bone Graft Fibergraft Large Bioactive Glass Putty [id number] - [id number] Implanted:Qty: 1 on 12/02/2023 by Jeremy Michelle MD at [facility] N/A: Spine Lumbar Depuy Synthes Spine [id number] 04/22/2026 [id number] / / [id number] Medtronic Inc Kit Graft Bone Sponge Xlg Infuse 8cc Granules [id number] - [id number] Implanted:Qty: 1 on 12/02/2023 by Jeremy Michelle MD at [facility] N/A: Spine Thoracic Medtronic Inc [id number] 01/24/2025 [id number] / / [id number] Medtronic Inc Kit Graft Bone Sponge Xlg Infuse 8cc Granules [id number] - [id number] Implanted:Qty: 1 on 12/02/2023 by Jeremy Michelle MD at [facility] N/A: Spine Thoracic Medtronic Inc [id number] 01/24/2025 [id number] / / [id number] Medtronic Inc Kit Graft Bone Sponge Xlg Infuse 8cc Granules [id number] - [id number] Implanted:Qty: 1 on 12/02/2023 by Jeremy Michelle MD at [facility] N/A: Spine Thoracic Medtronic Inc [id number] 01/24/2025 [id number] / / [id number] Allosource Crushed Chip Frozen Graft 60ml Bone Cancellous [id number] - [id number] Implanted:Qty: 1 on 12/02/2023 by Jeremy Michelle MD at [facility] N/A: Spine Thoracic Allosource 06/18/2028 [id number] / / [id number] Depuy Synthes Spine Expedium 5mm 45mm Fix Spine Cortical Screw Bone Titanium 5.5mm [id number] - [id number] Implanted:Qty: 2 on 12/02/2023 by Jeremy Michelle MD at [facility] N/A: Spine Thoracic Depuy Synthes Spine [id number] / / Depuy Synthes Spine Expedium 5.5mm 45mm Polyaxial Spine Screw Bone Titanium 5.5mm El [id number] - [id number] Implanted:Qty: 1 on 12/02/2023 by Jeremy Michelle MD at [facility] N/A: Spine Thoracic Depuy Synthes Spine [id number] / / Depuy Synthes Spine Expedium 5.5mm 50mm Polyaxial Spine Screw Bone Titanium 5.5mm El [id number] - [id number] Implanted:Qty: 3 on 12/02/2023 by Jeremy Michelle MD at [facility] N/A: Spine Thoracic Depuy Synthes Spine [id number] / / Depuy Synthes Spine Expedium 1 Inner Monoaxial Spine Screw Set Titanium [id number] - [id number] Implanted:Qty: 14 on 12/02/2023 by Jeremy Michelle MD at [facility] N/A: Spine Thoracic Depuy Synthes Spine [id number] / / Depuy Synthes Spine Expedium 5.5mm 480mm El Spinal Titanium Nonsterile [id number] - [id number] Implanted:Qty: 2 on 12/02/2023 by Jeremy Michelle MD at [facility] N/A: Spine Thoracic Depuy Synthes Spine [id number] / / Depuy Synthes Spine Substitute Bone Graft Fibergraft Large Bioactive Glass Putty [id number] - [id number] Implanted:Qty: 2 on 12/02/2023 by Jeremy Michelle MD at [facility] N/A: Spine Thoracic Depuy Synthes Spine [id number] / / Depuy Synthes Spine Screw Viper 8x65mm [id number] - [id number] Implanted:Qty: 2 on 12/02/2023 by Jeremy Michelle MD at [facility] N/A: Spine Thoracic Depuy Synthes Spine [id number] / / Procedures Procedure Name Priority Date/Time Associated Diagnosis Comments XR SCOLIOSIS AP LAT Schedule Routine, Read Routine (OP Routine) 06/07/2024 8:25 AM ACCOUNT REVIEW SPECIALIST Fusion of spine of lumbar region XR SPINE LUMBAR ROUTINE Schedule Routine, Read Routine (OP Routine) 06/07/2024 7:31 AM ACCOUNT REVIEW SPECIALIST Fusion of spine of lumbar region DEVICE CHECK - REMOTE Routine 05/23/2024 2:24 PM CDT NICM (nonischemic cardiomyopathy) (CMS/HCC) (HCC) from Last 3 Months Results * XR Scoliosis AP LAT (06/07/2024 8:25 AM ACCOUNT REVIEW SPECIALIST) Anatomical Region Laterality Modality Spine N/A Computed Radiogr aphy 06/07/2024 9:22 AM ACCOUNT REVIEW SPECIALIST Impressions 06/07/2024 9:35 AM ACCOUNT REVIEW SPECIALIST Unchanged posterior instrumented fusion from T10 through the pelvis with bilateral iliac screws. ??No significant coronal or sagittal imbalance. Dictated by: Young Choi M.D. The radiology attending physician has personally reviewed this study, and had reviewed and/or edited this written report and agrees with it. Electronically signed by: Randall Corrales D.O. Narrative 06/07/2024 9:35 AM ACCOUNT REVIEW SPECIALIST EXAMINATION: XR SCOLIOSIS AP AND LATERAL HISTORY: [...] 4 or More Views (06/07/2024 7:31 AM ACCOUNT REVIEW SPECIALIST) Anatomical Region Laterality Modality L-spine N/A Computed Radiogr aphy 06/07/2024 7:34 AM ACCOUNT REVIEW SPECIALIST Impressions 06/07/2024 7:34 AM ACCOUNT REVIEW SPECIALIST 1. ??Unchanged posterior instrumented fusion from T10 through the pelvis and bilateral iliac bones with combined interbody fusion from L2-S1. Electronically signed by: Eliecer Toscano M.D. Narrative 06/07/2024 7:34 AM ACCOUNT REVIEW SPECIALIST EXAMINATION: XR SPINE LUMBAR 4 OR MORE [...] ??Right upper quadrant surgical clips. Procedure Note Carroll Toscano, Eliecer Urrutia MD - 06/07/2024 EXAMINATION: XR SPINE LUMBAR [...] 78 y.o. female This patient received a [place] scientific ICD. ??They had a remote transmission on [...] 9.7 seconds Episodes last 90 days/Comments: AF [place] <1%, longest duration 3 seconds. ?? No new ventricular events NORMAL DEVICE FUNCTION PROGRAMMED Medications: Anti-coagulant(s): ??Eliquis 5 mg twice a day Anti-arrhythmic(s): ??Amiodarone 200 mg daily, Lopressor 25 mg twice a day PLAN: 1) normal [place] scientific ICD evaluation. 2) [place] scientific remote transmission scheduled in 3 months. 3) Programming appropriate for device measurements Yanni David RN Ashvin Recio III, MD [facility] PROCEDURES Final Result from Last 3 Months Insurance [facility] MEDICARE [facility] MEDICARE [facility] MEDICARE Advance Directives For more information, please contact: [phone] * Full Code (Latest Code Status on [...] Communication Sunita Miranda Spouse Health Care Agent [email or web address] Plascencia Pandya Friend First Alternate Health Care Agent Care Teams Catalytic Converter Operator Helper Relationship Specialty Start Date End Date Enmanuel Gan MD [address] [facility] MEDICINE [place], [place] [id number] PCP - General Internal Medicine 04/26/20 Tg Houston MD [address] [place] [address] Consulting Physician Cardiology 07/18/20 Guerrero Hunter DPT [address] [facility] [place] [address] [place] [address] Physical Therapist Physical Therapy 11/08/20 Guerrero Weiner, HEAD BAKER [address] [facility] [address] [place] [address] Shoe Salesperson Physical Therapy 12/12/20 Stephen Barth MD [address] [place] [address] Referring Physician Transplant 10/19/23
--- OUTSIDE RECORDS SUMMARY | 2024-07-12 08:36 | XMS_ITS | Encounter Summary ---
Author Organization [facility] Healthcare Address [address] [place] [address] Care Team Providers Care Inspector Tubes Name Role Phone Enmanuel Gan MD Primary Care Provider [phone] Tg Houston MD Unavailable [phone] Guerrero Hunter DPT Unavailable [phone] Guerrero Weiner INSTITUTIONAL CUSTODIAN Unavailable [phone] Stephen Barth MD Unavailable [phone] Reason for Visit * Reason Onset Date Comments Med Refill 07/06/2024 Encounter Details Date Type Department Care Team (Late st Contact Info) Description 07/06/2024 Telephone Arrhythmia Center [address] [facility] [address] [place] [id number] Ashvin Recio III, MD [address] [facility] [address] [address] Med Refill Social History Tobacco Use Types Packs/Day [...] materials from doctor or pharmacy Never 02/24/2024 [facility] Utilities Answer Date Recorded In the past [...] often do you attend chur ch or bahai services? Never 02/22/2024 Do you belong to any clubs o r organizations such as samaritan groups, unions, fraternal or athletic groups, or [...] any time in the past 12 m [facility], were you homeless or living in a jail (including now)? No 01/07/2024 Personal Safety Answer Date Recorded Have you ever been in or are you currently in a harmful physical or emotional relationship or is someone making you feel afraid or unsafe? Denies 01/06/2024 Comments No Sex and Gender Information Value Date Recorded Sex Assigned at Not on file Legal Sex Female 9:09 PM SURVEYING CREW STAKE RUNNER Gender Identity Not on file Sexual Orientation Lesbian 05/24/2019 9: 06 AM CDT documented as of this encounter Ordered Prescriptions Prescription Sig Dispense Quantity Refills Last Filled Start Date End Date metoprolol tartrate (LOPRESSOR) 25 mg immediate release tablet Take 1 tablet (25 mg total) by mouth 2 (two) times a day 60 tablet 11 07/06/2024 07/06/2025 documented in this encounter Miscellaneous Notes * Telephone Encounter - Madison Youssef - 07/06/2024 7:38 PM CST Patient called and left stating that when her Metoprolol was decreased to 25mg BID she has been cutting her 50 mg tablets in half and wanted to get the 25 mg tablets. Electronically sent in new script. Forwarded message to Clinical staff to call patient in AM to let her know that script was sent to pharmacy EYING CREW STAKE RUNNER documented in this encounter Plan of Treatment Not on file documented as of this encounter Visit Diagnoses Diagnosis Paroxysmal atrial fibrillation with rapid ventricular response (HCC) documented in this encounter Discontinued Medications Medication Sig Discontinue Reason Start Date End Da te metoprolol tartrate (LOPRESSOR) 50 mg immediate release tabletIndications:Atrial Arrhythmia Take 0.5 tablets (25 mg total) by mouth 2 (two) times a day Alternate therapy 04/04/2024 07/06/2024 documented as of this encounter Care Teams Inspector Tubes Relationship Specialty Start Date End Date Enmanuel Gan MD [address] [facility] [address] [place] [address] PCP - General Internal Medicine 04/26/20 Tg Houston MD [address] [facility] [address] [place] [address] Consulting Physician Cardiology 07/18/20 Guerrero Hunter DPT [address] [facility] [address] [facility] [place] [address] Physical Therapist Physical Therapy 11/08/20 Guerrero Weiner [facility] [address] [facility] [address] [place] [address] Pairing Machine Operator Physical Therapy 12/12/20 Stephen Barth MD [address] [place] [address] Referring Physician Transplant 10/19/23 documented as of this encounter
--- OUTSIDE RECORDS SUMMARY | 2024-07-12 08:36 | XMS_ITS | Encounter Summary ---
Author Organization [facility] Address [address] [place] [address] Phone Care Team Providers Care National Sales Executive Name Role Phone Enmanuel Gan MD Primary Care Provider [phone] Tg Houston MD Unavailable [phone] Guerrero Hunter DPT Unavailable [phone] Guerrero Weiner REALTIME REPORTER Unavailable [phone] Stephen Barth MD Unavailable [phone] Reason for Visit * Consultation (Routine) - Authorized Specialty Diagnoses / Procedures Referred By Contac t Referred To Contact Audiology Diagnoses Sensorineural hearing loss, asymmetrical Enmanuel Gan MD [address] [facility] [address] [place] [address] Phone: tel: fax: [facility] (All Locations) Referral ID Status Reason Start Date Expiration Date Visits Requested Visits Authorized [id number] Authorized Specialty Services Required 03/07/2024 04/06/2025 12 12 Encounter Details Date Type Department Care Team (Latest Contact Info) Description 03/16/2024 1:00 PM CDT Procedure visit [facility] Otolaryngology [address] [facility] 11th [place] [address] [place] [address] Dulce Luna Au.D. [address] [place] [address] Encounter for adjustment and management of cochlear device (Primary Dx); Sensorineural hearing loss, asymmetrical Social History Tobacco Use Types Packs/Day Years [...] materials from doctor or pharmacy Never 02/24/2024 [facility] Utilities Answer Date Recorded In the past 12 months has [employer], gas, oil, or water [employer] threatened to shut off services in your [...] 02/22/2024 How often do you attend chur or holiness services? Never 02/22/2024 Do you belong to any clubs o r organizations such as adventism groups, unions, fraternal or athletic groups, or [...] any time in the past 12 m [facility], were you homeless or living in a chcf (including now)? No 01/07/2024 Personal Safety Answer Date Recorded Have you ever been in or are you currently in a harmful physical or emotional relationship or is someone making you feel afraid or unsafe? Denies 01/06/2024 Comments No Sex and Gender Information Value Date Recorded Sex Assigned at Not on file Legal Sex Female 9:09 PM CASTING COORDINATOR Gender Identity Not on file Sexual Orientation Lesbian 05/24/2019 9: 06 AM CDT documented as of this encounter Procedure Notes * Dulce Luna Au.D. - 03/16/2024 1:00 PM CDT Procedures Hearing Aid (Active) L/R/Bilateral right Make Resound Model Omnia (BO044-WRSA) Style YURI Comber Operator Length 0 Comber Operator Power MP Right serial # [id number] Rechargeable Y Comment 1 Purchased from outside provider but patient would like to have serviced here Cochlear Implant (Active) L/R/Bilateral left Hydrogen Power Plant Engineer Cochlear [employer] Processor 1 style Off-ear Processor 2 style Off-ear Processor Color dunlap/white Magnet Strength 3i Internal CI632 External K2/K2 Provider Durakovcody Date of CI surgery 06/19/20 Date of IS 07/09/20 MAPS in Speech Processor: ALLEGRA 1200 Hz, 8 Max, 25 PW Current settings: P1: Map 16 - vol 6 and sens 12 P2: Map 14 - map used prior to 24 mo eval Cell phone: yes Audio accessories: MM2 and 2 TV streamers SERVICES PROVIDED: 3 year annual Evaluation of Auditory Function, Post-op Cochlear Implant (Time: 1:00 - 1:45 pm) and Subsequent Programming and COUCH Check PROCEDURES: The patient attended the session with no one. The patient reported: - doing well with CI - noticed has been turning VC up to 10 - changed sherita covers recently -wearing P2 because it sounds more clear -using FF in noisy places -received COUCH at outside provider but would like to have it serviced here from now on - patient was notified of $80 COUCH check cost. Equipment: External equipment was visualized and all looked fine. The Kanso 2 sticks very well to her head. Reminded her to check her head regularly. Hearing aid was checked and cleaned today. Aid was tested electroacoustically in the Audioscan testbox. Electroacoustic analysis performed (ANSI S3.22-2009) (see below): Associate Professor Of Theology Settings HFA OSPL 90 Av gain at 50 EIN Right HA2 User 98 25 na Right HA2 FOG 114 49 na Results indicate good performance of hearing aid run at FOG. Aid is meeting transition mgr's requirements for performance. See media for FOG result printout. Results indicate good performance of hearing aid compared to baseline FOG test mode. User settings obtained to be used for baseline. See media for user setting printout. Evaluation Testing was completed to assess the patient's detection of sound and speech understanding and to compare to previous testing. The right ear was plugged and muffed for all testing. Patient was using program 1, map 14, volume 6 sensitivity 12. Sound field Thresholds 250 005 531 4343 1500 2000 3000 4000 6000 Hz CI LE 24 28 28 22 14 18 24 22 16 dB HL Previous results in () - last evaluation: CNC Words @ 60 dB SPL CI:LE List: 10 Word Total: 80% (74%) Phoneme Total: 89% (90%) AzBio Sentences @ 60 dB SPL CI:LE List: 10 Total: 92% (96%) AzBio Sentences @ 60 dB SPL +10 SNR Mulberry Babble CI+COUCH List: 11 Total: 78% (83%) Sound field thresholds were good and indicate good audibility for speech. The patient scored betteron words but slightly poorer on sentences compared to previous tests. Results of testing were discussed with the patient. RE AC/BC and WRS done today. See media for results and recommendations. Significant decrease in AC thresholds and WRS was noted today. Programming CI A head check was completed and no redness or irritation was seen at the magnet site. Programming was completed to optimize current map parameters and to ensure optimal settings. See Custom Sound software for details this date. Impedances were measured and were all okay and stable. Datalog information: 15.2 hours use/per day. Patient's preferred map was opened: map 16. T levels were balanced and swept at 25% and rated as very soft to soft.C levels were balanced and swept and rated as medium soft to medium. Some changes were made. When live the patient thought the new map sounded fine. Battery estimate: 20 hrs. This was saved as Map 15.The final programs were loaded as indicated above. Back up processor was programmed today. Programming COUCH Incoming hearing aid settings were saved to [facility] before making and adjustments. The audiogram was updated in the fitting software. The gain was increased in the low frequencies by 4 steps overall, and the high frequencies by 3 steps overall. Then gain was increased overall by 4 steps overall. Global gain was also increased to 100% from 90%. Patient reported this was louder and clearer than before. This session was saved under today's date. Patient paid $50 for programming changes to the hearing aid today. She was informed of $80 charge/visit moving forward to continue servicing her hearing aid. Patient understood and agreed to the charges. Binaural Balance Patient reported that sound was balanced between both device and that speech was clear. Her devices were re-linked in the Custom Sound programming software then paired to her Android cellphone for Bluetooth streaming and virgilio use using her [employer] virgilio for both devices. I have personally spent the time documented above evaluating the auditory function post implant of this patient. This time does not include time spent on cochlear implant programming or reprogramming. The note as documented above reflects my personal service. RECOMMENDATIONS: Return for Annual evaluation or sooner if needed documented in this encounter Plan of Treatment Not on file documented as of this encounter Procedures Procedure Name Priority Date/Time Associated Diagnosis Comments AUDBASE RESULTS 03/16/2024 1:04 PM CDT documented in this encounter Results * AudBase Results (03/16/2024 1:04 PM CDT) Provider Scanning AUDIOLOGY SERVICES ORDERABLES Final Result documented in this encounter Visit Diagnoses Diagnosis Encounter for adjustment and management of cochlear device- Primary Sensorineural hearing loss, asymmetrical documented in this encounter Orders Outpatient Referral Count Last Ordered Date Fir st Ordered Date AMB REFERRAL TO AUDIOLOGY (ADULT) 1 024 documented in this encounter Care Teams National Sales Executive Relationship Specialty Start Date End Date Enmanuel Gan MD [address] [facility] [address] [place] [address] PCP - General Internal Medicine 04/26/20 Tg Houston MD [address] [facility] [address] [place] [address] Consulting Physician Cardiology 07/18/20 Guerrero Hunter DPT [address] [facility] [address] [facility] [place] [address] Physical Therapist Physical Therapy 11/08/20 Guerrero Weiner, [facility] [address] [facility] [address] [place] [address] Noodle Press Operator Physical Therapy 12/12/20 Stephen Barth MD [address] [facility] [address] [place] [address] Referring Physician Transplant 10/19/23 documented as of this encounter
--- OUTSIDE RECORDS SUMMARY | 2024-07-12 08:36 | XMS_ITS | Encounter Summary ---
Author Organization [facility] Healthcare Address [address] [place] [address] Care Team Providers Care Coin Machine Supervisor Name Role Phone Enmanuel Gan MD Primary Care Provider [phone] Tg Houston MD Unavailable [phone] Guerrero Hunter DPT Unavailable [phone] Guerrero Weiner PROFESSOR OF SOCIAL WORK Unavailable [phone] Stephen Barth MD Unavailable [phone] Reason for Referral * Cardiology (Routine) - Closed Specialty Diagnoses / Procedures Referred By Contac t Referred To Contact Diagnoses Apical variant hypertrophic cardiomyopathy (HCC) Procedures DEVICE CHECK - IN OFFICE Ashvin Recio III, MD [address] [address] Phone: tel: fax: [facility] Medical Group Referral ID Status Reason Start Date Expiration Date Visits Re quested Visits Authorized [id number] Closed 04/04/2024 05/04/2025 1 1 Encounter Details Date Type Department Care Team (Late st Contact Info) Description 04/04/2024 Orders Only Arrhythmia Center [address] [facility] [address], [place] [phone] Ashvin Recio III, MD [address] [facility] [address] [place] [address] Apical variant hypertrophic cardiomyopathy (HCC) (Primary Dx) Social History Tobacco Use Types [...] materials from doctor or pharmacy Never 02/24/2024 [facility] Utilities Answer Date Recorded In the past 12 months has [employer], gas, oil, or water [employer] threatened to shut off services in your [...] often do you attend chur ch or restoration services? 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 ICD CHECK (IN OFFICE) Patient ID: Macie Briseno is a 78 y.o. female. This patient received a [place] scientific ICD. ??They had a routine in office device interrogation on 04/04/24 Device implant indications: ??Nonischemic cardiomyopathy, Mobitz type 2, NSVT ?? Interrogation of the patient's device demonstrates the following: Presenting EGM: ??A paced V sensed @ 60 bpm Underlying Rhythm: ??A sense V sense at 50 bpm Original Device Settings Right Atrium Right Ventricle Sensitivity (mV) 0.25 mV 0.6 mV Pacing Outputs 2.5 V @ 0.4 ms 2.5 V @ 0.4 ms ?? Testing Measurements Right Atrium Right Ventricle Sensitivity (mV) 5 mV >12 mV Impedence (Ohms) 630 ohms 439 ohms High Voltage Impedence ??76 ohms Pace Threshold 0.7 V @ 0.4 ms 0.7 V @ 0.4 ms Pacing % 37 % <1 % Battery Status: ??10.5 years to YURIDIA with Charge Time 9.7 seconds Episodes last 90 days/Comments: AF Clarita 1%, longest duration 1 hour and 40 minutes on 12/12/2023. ?? Rates in the 110s to 120s. There were numerous episodes classified as nonsustained VT and VT. ??All reviewed EGMs show AFib with RVR and rates in the 170s to 180s with durations of less than 30 seconds. ?? NORMAL DEVICE FUNCTION PROGRAMMED MEDICATIONS: Anti-coagulant(s): ??Eliquis 5 mg twice a day Anti-arrhythmic(s): ??Lopressor 25 mg twice a day PLAN: 1) normal [employer] scientific ICD evaluation. 2) [employer] scientific remote transmission scheduled in 3 months. 3) Programming appropriate for device measurements Yanni David RN Result [facility] Ashvin Recio III, MD CV CARDIAC SERVICES PROCEDURES Final Result documented in this encounter Visit Diagnoses Diagnosis Apical variant hypertrophic cardiomyopathy (HCC)- Primary ICD (implantable cardioverter-defibrillator), dual, in situ- Primary Apical variant hypertrophic cardiomyopathy (HCC) documented in this encounter Care Teams Coin Machine Supervisor Relationship Specialty Start Date End Date Enmanuel Gan MD [address] [facility] [address] [place] [address] PCP - General Internal Medicine 04/26/20 Tg Houston MD [address] [place] [address] Consulting Physician Cardiology 07/18/20 Guerrero Hunter DPT [address] [facility] [address] [place] [address] Physical Therapist Physical Therapy 11/08/20 Guerrero Weiner, [facility] [address] [facility] [address] [place] [address] Power Plant Superintendent Physical Therapy 12/12/20 Stephen Barth MD [address] [place] [address] Referring Physician Transplant 10/19/23 documented as of this encounter
--- OUTSIDE RECORDS SUMMARY | 2024-07-12 08:36 | XMS_ITS | Encounter Summary ---
Author Organization [facility] Healthcare Address [address] [place] [address] Care Team Providers Care Tar Heater Operator Name Role Phone Enmanuel Gan MD Primary Care Provider [phone] Tg Houston MD Unavailable [phone] Guerrero Hunter DPT Unavailable [phone] Guerrero Weiner BAKERY MANAGER Unavailable [phone] Stephen Barth MD Unavailable [phone] Reason for Visit * Cardiology (Routine) - Closed Specialty Diagnoses / Procedures Referred By Contac t Referred To Contact Diagnoses NICM (nonischemic cardiomyopathy) (CMS/HCC) (HCC) Procedures DEVICE CHECK - REMOTE Ashvin Recio III, MD [address] [facility] [address] [address] Phone: tel: fax: [facility] Medical Group Referral ID Status Reason Start Date Expiration Date Visits Re quested Visits Authorized [id number] Closed 01/26/2023 07/29/2024 1 1 Encounter Details Date Type Department Care Team (Latest Contact Info) Description 05/23/2024 9:45 AM CDT Ancillary Procedure Arrhythmia Center [address] [facility] [address], [place] [address] ICD (implantable cardioverter-defibr illator), dual, in situ (Primary Dx); NICM (nonischemic cardiomyopathy) (CMS/HCC) ([facility]) Social History Tobacco Use Types Packs/Day Years [...] materials from doctor or pharmacy Never 02/24/2024 [facility] Utilities Answer Date Recorded In the past [...] often do you attend chur ch or hindu services? Never 02/22/2024 Do you belong to [...] you homeless or living in a senior living (including now)? No 01/07/2024 Personal Safety Answer Date Recorded Have you ever been in or are you currently in a harmful physical or emotional relationship or is someone making you feel afraid or unsafe? 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 ICD CHECK (REMOTE) Patient ID: Macie Briseno is a 78 y.o. female This patient received a [place] scientific ICD. ??They had a remote transmission [...] 9.7 seconds Episodes last 90 days/Comments: AF [place] <1%, longest duration 3 seconds. ?? No new ventricular events NORMAL DEVICE FUNCTION PROGRAMMED Medications: Anti-coagulant(s): ??Eliquis 5 mg twice a day Anti-arrhythmic(s): ??Amiodarone 200 mg daily, Lopressor 25 mg twice a day PLAN: 1) normal [place] scientific ICD evaluation. 2) [employer] scientific remote transmission scheduled in 3 months. 3) Programming appropriate for device measurements Yanni David RN Ashvin Recio III, MD CV CARDIAC SERVICES PROCEDURES Final Result documented in this encounter Visit Diagnoses Diagnosis ICD (implantable cardioverter-defibrillator), dual, in situ- Primary NICM (nonischemic cardiomyopathy) (CMS/HCC) ([facility]) documented in this encounter Care Teams Tar Heater Operator Relationship Specialty Start Date End Date Enmanuel Gan MD [address] [facility] [address] [place] [address] [place] [address] PCP - General Internal Medicine 04/26/20 Tg Houston MD [address] [place] [address] Consulting Physician Cardiology 07/18/20 Guerrero Hunter, [facility] [address] [facility] [address] [place] [address] Physical Therapist Physical Therapy 11/08/20 Guerrero Weiner, BAKERY MANAGER [address] [facility] [address] [place], [place] [id number] Human Resource Statistician Physical Therapy 12/12/20 Stephen Barth MD [address] [place] [address] Referring Physician Transplant 10/19/23 documented as of this encounter
--- OUTSIDE RECORDS SUMMARY | 2024-07-12 08:36 | XMS_ITS | Encounter Summary ---
Author Organization [facility] Address [address] [place] [address] Phone Care Team Providers Care Channel Cementer Insole Machine Name Role Phone Enmanuel Gan MD Primary Care Provider [phone] Tg Houston MD Unavailable [phone] Guerrero Hunter DPT Unavailable [phone] Guerrero Wiener SAFETY ENGINEER PRESSURE VESSELS Unavailable [phone] Stephen Barth MD Unavailable [phone] Reason for Visit * Reason Onset Date Comments [facility] 05/31/24 appt with MLG 05/23/2024 Encounter Details Date Type Department Care Team (Late st Contact Info) Description 05/23/[address] [facility] Orthopaedic Surgery [facility] Advanced Medicine 6th [place] [address] [place] [address] Jeremy Michelle MD [address] [facility] [address] [place] [address] [facility] 05/31/24 appt with MLG Social History Tobacco Use Types Packs/Day Years [...] materials from doctor or pharmacy Never 02/24/2024 [facility] Utilities Answer Date Recorded In the past 12 months has e [employer], [employer], oil, or water [employer] threatened to shut off services in your [...] often do you attend chur ch or protestant services? Never 02/22/2024 Do you belong to any clubs o r organizations such as episcopal groups, unions, fraternal or athletic groups, or [...] any time in the past 12 m [facility], were you homeless or living [...] on file Legal Sex Female 9:09 PM STREETCAR OPERATOR Gender Identity Not on file Sexual Orientation Lesbian 05/24/2019 9: 06 AM CDT documented as of this encounter Miscellaneous Notes * Telephone Encounter - Davi Dias RMA - 05/23/2024 10:28 AM CDT LMOR today asking pt to call me back to [facility] her appt w/ MLG on 05/31/24. MLG will be OOT. Lizzie~ documented in this encounter Plan of Treatment Not on file documented as of this encounter Visit Diagnoses Not on filedocumented in this encounter Care Teams Channel Cementer Insole Machine Relationship Specialty Start Date End Date Enmanuel Gan MD [address] [place] [address] PCP - General Internal Medicine 04/26/20 Tg Houston MD [address] [place] [address] Consulting Physician Cardiology 07/18/20 Guerrero Hunter DPT [address] [facility] [address] [place] [address] Physical Therapist Physical Therapy 11/08/20 Guerrero Weiner, [facility] [address] [facility] [address] [place] [address] Magnetic Observer Physical Therapy 12/12/20 Stephen Barth MD [address] [place] [address] Referring Physician Transplant 10/19/23 documented as of this encounter
--- OUTSIDE RECORDS SUMMARY | 2024-07-12 08:36 | XMS_ITS | Encounter Summary ---
Author Organization [facility] Address [address] [place] [address] Care Team Providers Care General Merchandise Salesperson Name Role Phone Enmanuel Gan MD Primary Care Provider [phone] Tg Houston MD Unavailable [phone] Guerrero Hunter DPT Unavailable + Guerrero Weiner FLOORING INSTALLER Unavailable + Stephen Barth MD Unavailable [phone] Reason for Visit * Reason Comments Spinal Surgery * Auth/Cert (Routine) Specialty Diagnoses / Procedures Referred By Contac t Referred To Contact Referral ID Status Reason Start Date Expiration Date Visits Re quested Visits Authorized [id number] 1 1 Encounter Details Date Type Department Care Team (Late st Contact Info) Description 02/24/2024 9:30 AM CDT Home Care Visit [facility] [address] [address] [address] [place] [address] Kindra Epps, PT PT OASIS DISCHARGE Social History Tobacco Use Types Packs/Day Years [...] often do you attend chur ch or congregation services? 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 Gender Identity Not on file Sexual Orientation Lesbian 05/24/2019 9: 06 AM CDT documented as of this encounter Last Filed Vital Signs Vital Sign Reading Time Taken Comments Blood Pressure 120/60 02/24/2024 10:25 AM CDT Pulse 70 02/24/2024 10:25 AM CDT Temperature 36.1 ??C (97 ??F) 02/24/2024 10:25 AM CDT Respiratory Rate 18 02/24/2024 10:25 AM CDT Oxygen Saturation 96% 02/24/2024 10:25 AM CDT Inhaled Oxygen Concentration - - Weight - - Height - - Body Mass Index - - documented in this encounter Miscellaneous Notes * Home Health Visit Narrative - Kindra Epps, PT - 02/24/2024 10:35 AM CDT Patient d/c to home with HEP with instructions to extend walking distance as tolerated; continue increased protein intake and good hydration; continue HEP as directed and to increase reps to 20 as tolerated; review of medications, pain management, and home safety; when/who to call with increased pain, increased swelling, wound drainage, or fever > 101 degrees; review of med list, follow up care including physician visit and referral to outpatient PT to address remaining balance deficits and advancing core strengthening. Patient verbalized understanding of discharge instructions. documented in this encounter Plan of Treatment Not on file documented as of this encounter Visit Diagnoses Not on filedocumented in this encounter Home Health Visit - Care Plan Visit Details Visit Type -PT OASIS Dischar jairo Discipline -Physical Therapy Problems Problem Description Start Date Status Goals Interve ntions Homebound Status Disciplines: Skilled Disciplines Patient's homebound status 01/09/2024 Active 1 goal linked to scheduled/documen maritza intervention 1 goal intervention scheduled/documen maritza in this visit Monitor patient's vital signs every home health visit Disciplines: SN, PT, OT, VERIFICATION CLERK, ENVIRONMENTAL ADVISER, Skilled Disciplines Monitor patient's vital signs every home health visit. 01/09/2024 Active 1 goal linked to scheduled/documen maritza intervention 1 goal intervention scheduled/documen maritza in this visit Multidisciplinar y Case Conference Disciplines: Skilled Disciplines Concurrently discusses plan of treatment and coordinate patient centered care 01/09/2024 Active 1 goal linked to scheduled/documen maritza intervention Infection Prevention Disciplines: Skilled Disciplines Infection Prevention 01/09/2024 Active 1 goal linked to scheduled/documen maritza intervention 3 goal interventions scheduled/documen maritza in this visit Safety concerns Disciplines: Skilled Disciplines Alteration in safety 01/09/2024 Active 1 goal linked to scheduled/documen maritza intervention 2 goal interventions scheduled/documen maritza in this visit Pain Disciplines: Core Disciplines Alteration in comfort 01/09/2024 Active 1 goal linked to scheduled/documen maritza intervention 1 goal intervention scheduled/documen maritza in this visit PT Orthopedic Disciplines: Physical Therapy Orthopedic aftercare needed due to spinal fusion and revision 01/12/2024 Active 7 goals linked to scheduled/documen maritza interventions 5 problem interventions scheduled/documen maritza in this visit PT Activity Tolerance/Energy Conservation Disciplines: Physical Therapy Impaired activity tolerance for functional activity 01/12/2024 Active 1 goal linked to scheduled/documen maritza intervention Goals Goal Associated Problem Outcome Goal Met? Visit Notes Patient receives care at the most appropriate care setting Description: Patient receives care at the most appropriate care setting. Homebound Status Met Yes Measure vital signs during every home health visit during episode of care Description: Home cleat feeder to measure vital signs during every home health visit during episode of care. Monitor patient's vital signs every home health visit Met Yes Care team will coordinate care Description: Care team will coordinate care centered on patient needs throughout the episode of care. Multidisciplinary Case Conference Met Yes Verbalize signs of infection Description: Patient/caregiver will demonstrate knowledge of infection prevention strategies by verbalizing signs and symptoms of infection, by 01/23/2024. Infection Prevention Met Yes Demonstrate use of safety precautions Description: Patient/caregiver maintains safe home environment as evidenced by remaining free from injury and demonstrates use of safety precautions throughout episode of care. Safety concerns Met Yes Report that pain has been reduced or controlled Description: Patient/caregiver/family will verbalize satisfaction with the patients level of pain and symptom control. Pain Met Yes Improved knowledge of use of cold for pain relief Description: Patient/caregiver will demonstrate correct use of cold packs for 20 minutes at a time, with 1 hour off between applications PT Orthopedic Met Yes Improvement with performance with gait/stairs Description: Patient able to ambulate functional distances in home with modified ind assist with lesser or no assistive device as appropriate and improved gait pattern and without significant increase in pain. Patient able to ascend/descend stairs in/out of home with modified ind assist and use of railing and/or lesser assistive device as needed and without significant increase in pain. PT Orthopedic Met Yes Improvement in ROM and/or strength measures Description: Patient/caregiver independent with progressed HEP. Patient will demonstrate improvement in B LE and core strength as evidenced by ability to complete at least 15 reps of standard standing exercises with minimal UE support, good posture with no substitutions and no increase in pain PT Orthopedic Met Yes Improvement in fall prevention/safety Description: Patient/caregiver will demonstrate knowledge of fall prevention/safety strategies Patient will have no falls during home care episode. PT Orthopedic Met Yes Improvement in Performance with Bed Mobility/Transfers Description: Patient able to independently perform all bed mobility and transfers in and out of the home safely and with improved ease of motion while maintaining post-spinal fusion BLT precautions. PT Orthopedic Met Yes Adequate management of elimination Description: Patient/caregiver is knowledgeable of management of elimination PT Orthopedic Met Yes Performance with HEP Description: Patient/caregiver to be independent with progressed HEP by therapy discharge. PT Orthopedic Met Yes Improvement in Activity Tolerance (Basic Mobility) Description: Patient/caregiver will perform ADL's and functional mobility utilizing energy conservation techniques and recommendations. Patient to demonstrate improved breathing pattern and pain tolerance at rest and with activity by therapy discharge. Assess 0-10/10 RPE scale and improve to < 5/10 during activity. PT Activity Tolerance/Energy Conservation Met Yes Interventions Intervention Associated Problem/Goal Status Variance Visit Notes Homebound Status Description: Patient is homebound 2/2 infection and pain s/p spinal surgery, resulting in need for daily antibiotic infusion, routine use of narcotics for pain relief, limited mobility, loss of independence completing ADLs, increased risk for falls - which requires the assistance of another person and taxing effort to safely leave residence. Problem:Homebound Status Goal:Patient receives care at the most appropriate care setting Completed Patient is homebound 2/2 infection and pain s/p spinal surgery, resulting in need for daily antibiotic infusion, routine use of narcotics for pain relief, limited mobility, loss of independence completing ADLs, increased risk for falls - which requires the assistance of another person and taxing effort to safely leave residence. Monitor Vital Signs Description: Monitor blood pressure, pulse, oxygen saturation, respirations, and temperature. Problem:Monitor patient's vital signs every home health visit Goal:Measure vital signs during every home health visit during episode of care Completed Aspects of Care Description: Instruct patient/caregiver on universal precautions and home infection control measures Problem:Infection Prevention Goal:Verbalize signs of infection Completed Educate Patient on Infection Prevention Description: Instructed patient on signs and symptoms of infection IE: fever, warmth pain, purulent drainage or drainage that has a change in color or odor. Problem:Infection Prevention Goal:Verbalize signs of infection Scheduled Educate Family on Infection Prevention Description: Instructed family on signs and symptoms of infection IE: fever, warmth pain, purulent drainage or drainage that has a change in color or odor. Problem:Infection Prevention Goal:Verbalize signs of infection Scheduled Instruct Fall Prevention Description: Instruct patient/caregiver in methods to prevent falls Problem:Safety concerns Goal:Demonstrate use of safety precautions Completed Assess safety Description: Assess patient safety Problem:Safety concerns Goal:Demonstrate use of safety precautions Scheduled Instruct on pain management techniques Description: Instruct in pharmacologic and nonpharmacologic pain management techniques. Problem:Pain Goal:Report that pain has been reduced or controlled Scheduled Home Exercise Program (HEP) Description: Instruct patient/caregiver and perform HEP. Problem:PT Orthopedic Completed Gait/Stair Training Description: Instruct patient/caregiver and perform gait/stair training. Problem:PT Orthopedic Completed Bed Mobility/Transfer Training Description: Instruct patient/caregiver and perform bed mobility/transfer training. Problem:PT Orthopedic Completed Cryotherapy Description: Use of cold for pain relief. Instruct patient/caregiver in use of cold to x 15-20 minutes, with 1 hour off between applications. Problem:PT Orthopedic Completed Therapeutic Exercise Description: Perform therapeutic exercise, progressing as tolerated. Problem:PT Orthopedic Completed documented in this encounter Care Teams General Merchandise Salesperson Relationship Specialty Start Date End Date Enmanuel Gan MD [address] [place] [address] PCP - General Internal Medicine 04/26/20 Tg Houston MD [address] [place] [address] Consulting Physician Cardiology 07/18/20 Guerrero Hunter DPT [address] [facility] [address] [place] [address] Physical Therapist Physical Therapy 11/08/20 Guerrero Weiner, [facility] [address] [facility] [address] [place] [address] Blade Aligner Physical Therapy 12/12/20 Stephen Barth MD [address] [place] [address] Referring Physician Transplant 10/19/23 documented as of this encounter
--- OUTSIDE RECORDS SUMMARY | 2024-07-12 08:36 | XMS_ITS | Encounter Summary ---
Author Organization [facility] Healthcare Address [address] [place] [address] Care Team Providers Care Automotive Parts Manager Name Role Phone Enmanuel Gan MD Primary Care Provider [phone] Tg Houston MD Unavailable [phone] Guerrero Hunter DPT Unavailable [phone] Guerrero Weiner SHIPYARD PAINTING SUPERVISOR Unavailable [phone] Stephen Barth MD Unavailable [phone] Reason for Referral * Cardiology (Routine) - Authorized Specialty Diagnoses / Procedures Referred By Contac t Referred To Contact Diagnoses NICM (nonischemic cardiomyopathy) (CMS/HCC) (HCC) Procedures DEVICE CHECK - REMOTE Ashvin Recio III, MD [address] [address] Phone: tel: fax: Referral ID Status Reason Start Date Expiration Date V isits Requested Visits Authorized [id number] Authorized 05/23/2024 11/21/2025 1 1 * Cardiology (Routine) - Authorized Specialty Diagnoses / Procedures Referred By Contac t Referred To Contact Diagnoses NICM (nonischemic cardiomyopathy) (CMS/HCC) (HCC) Procedures DEVICE CHECK - REMOTE Ashvin Recio III, MD [address] [place] [address] Phone: tel: fax: Referral ID Status Reason Start Date Expiration Date V isits Requested Visits Authorized [id number] Authorized 05/23/2024 11/21/2025 1 1 * Cardiology (Routine) - Authorized Specialty Diagnoses / Procedures Referred By Contac t Referred To Contact Diagnoses NICM (nonischemic cardiomyopathy) (CMS/HCC) (HCC) Procedures DEVICE CHECK - REMOTE Ashvin Recio III, MD [address] [place] [address] Phone: tel: fax: Referral ID Status Reason Start Date Expiration Date V isits Requested Visits Authorized [id number] Authorized 05/23/2024 11/21/2025 1 1 * Cardiology (Routine) - Authorized Specialty Diagnoses / Procedures Referred By Contac t Referred To Contact Diagnoses NICM (nonischemic cardiomyopathy) (CMS/HCC) (HCC) Procedures DEVICE CHECK - REMOTE Ashvin Recio III, MD [address] [place] [address] Phone: tel: fax: Referral ID Status Reason Start Date Expiration Date V isits Requested Visits Authorized [id number] Authorized 05/23/2024 11/21/2025 1 1 * Cardiology (Routine) - Authorized Specialty Diagnoses / Procedures Referred By Contac t Referred To Contact Diagnoses NICM (nonischemic cardiomyopathy) (CMS/HCC) (HCC) Procedures DEVICE CHECK - REMOTE Ashvin Recio III, MD [address] [place] [address] Phone: tel: fax: Referral ID Status Reason Start Date Expiration Date V isits Requested Visits Authorized [id number] Authorized 05/23/2024 11/21/2025 1 1 Encounter Details Date Type Department Care Team (Late st Contact Info) Description 05/23/2024 Orders Only [facility] [address] [facility] [address] [address] Ashvin Recio III, MD [address], [place] [address] NICM (nonischemic cardiomyopathy) (CMS/HCC) (HCC) (Primary Dx) Social History Tobacco Use [...] materials from doctor or pharmacy Never 02/24/2024 [facility] Utilities Answer Date Recorded In the past 12 months has e [employer], gas, oil, or water [employer] threatened to shut off services in your [...] How often do you attend chur or yazdanism services? Never 02/22/2024 Do you belong to [...] any time in the past 12 m [facility], were you homeless or living in a long-term (including now)? No 01/07/2024 Personal Safety Answer Date Recorded Have you ever been in or are you currently in a harmful physical or emotional relationship or is someone making you feel afraid or unsafe? 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 Gender Identity Not on file Sexual Orientation Lesbian 05/24/2019 9: 06 AM CDT documented as of this encounter Plan of Treatment Scheduled Orders Name Type Priority Associated Diagnoses Orde r Schedule DEVICE CHECK - REMOTE Cardiac Services Routine NICM (nonischemic cardiomyopathy) (CMS/HCC) (HCC) 1 Occurrences starting 05/23/2024 until 11/21/2025 DEVICE CHECK - REMOTE Cardiac Services Routine NICM (nonischemic cardiomyopathy) (CMS/HCC) (HCC) 1 Occurrences starting 05/23/2024 until 11/21/2025 DEVICE CHECK - REMOTE Cardiac Services Routine NICM (nonischemic cardiomyopathy) (CMS/HCC) (HCC) 1 Occurrences starting 05/23/2024 until 11/21/2025 DEVICE CHECK - REMOTE Cardiac Services Routine NICM (nonischemic cardiomyopathy) (CMS/HCC) (HCC) 1 Occurrences starting 05/23/2024 until 11/21/2025 DEVICE CHECK - REMOTE Cardiac Services Routine NICM (nonischemic cardiomyopathy) (CMS/HCC) (HCC) 1 Occurrences starting 05/23/2024 until 11/21/2025 documented as of this encounter Visit Diagnoses Diagnosis NICM (nonischemic cardiomyopathy) (CMS/HCC) (HCC)- Primary documented in this encounter Care Teams Automotive Parts Manager Relationship Specialty Start Date End Date Enmanuel Gan MD [address] [facility] [address] [place] [address] PCP - General Internal Medicine 04/26/20 Tg Houston MD [address] [facility] [address] [place] [address] Consulting Physician Cardiology 07/18/20 Guerrero Hunter DPT [address] [facility] [address] [place] [address] Physical Therapist Physical Therapy 11/08/20 Guerrero Weiner, SHIPYARD PAINTING SUPERVISOR [address] [facility] [place] [address] [place] [address] Public Address Announcer Physical Therapy 12/12/20 Stephen Barth MD [address] [facility] [address] [place] [address] Referring Physician Transplant 10/19/23 documented as of this encounter
--- OUTSIDE RECORDS SUMMARY | 2024-07-12 08:36 | XMS_ITS | Encounter Summary ---
Author Organization [facility] Healthcare Address [address] [place] [address] Care Team Providers Care Industrial Workers Name Role Phone Enmanuel Gan MD Primary Care Provider [phone] Tg Houston MD Unavailable [phone] Guerrero Hunter DPT Unavailable [phone] Guerrero Weiner FACILITIES DIRECTOR Unavailable [phone] Stephen Barth MD Unavailable [phone] Reason for Visit * Cardiology (Routine) - Closed Specialty Diagnoses / Procedures Referred By Contac t Referred To Contact Diagnoses Apical variant hypertrophic cardiomyopathy (HCC) Procedures DEVICE CHECK - IN OFFICE Ashvin Recio III, MD [address] [facility] [address] [address] Phone: tel: fax: [facility] Referral ID Status Reason Start Date Expiration Date Visits Re quested Visits Authorized [id number] Closed 04/04/2024 05/04/2025 1 1 Encounter Details Date Type Department Care Team (Latest Contact Info) Description 04/04/2024 12:45 PM CDT Ancillary Procedure Arrhythmia Center [address] [facility] [address] [id number] ICD (implantable cardioverter-defibrill ator), dual, in situ (Primary Dx); Apical variant hypertrophic cardiomyopathy (HCC) Social History Tobacco Use Types Packs/Day Years [...] materials from doctor or pharmacy Never 02/24/2024 [facility] Utilities Answer Date Recorded In the past 12 months has th e [employer], gas, oil, or water company threatened to [...] often do you attend chur ch or baptism services? Never 02/22/2024 Do you belong to any clubs o r organizations such as alevism groups, unions, fraternal or athletic groups, or [...] any time in the past 12 m [facility], were you homeless or living in a correction (including now)? No 01/07/2024 Personal Safety Answer Date Recorded Have you ever been in or are you currently in a harmful physical or emotional relationship or is someone making you feel afraid or unsafe? 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 ICD CHECK (IN OFFICE) Patient ID: Macie Briseno is a 78 y.o. female. This patient received a [place] scientific ICD. ??They had a routine in [...] 9.7 seconds Episodes last 90 days/Comments: AF Barton 1%, longest duration 1 hour and 40 [...] mg twice a day PLAN: 1) normal [employer] scientific ICD evaluation. 2) [employer] scientific remote transmission scheduled in 3 months. 3) Programming appropriate for device measurements Yanni David RN Result [facility] Ashvin Recio III, MD CV CARDIAC SERVICES PROCEDURES Final Result documented in this encounter Visit Diagnoses Diagnosis ICD (implantable cardioverter-defibrillator), dual, in situ- Primary Apical variant hypertrophic cardiomyopathy (HCC) documented in this encounter Care Teams Industrial Workers Relationship Specialty Start Date End Date Enmanuel Gan MD [address] [place] [address] PCP - General Internal Medicine 04/26/20 Tg Houston MD [address] [place] [address] Consulting Physician Cardiology 07/18/20 Guerrero Hunter DPT [address] [facility] [address] [facility] [place] [address] Physical Therapist Physical Therapy 11/08/20 Guerrero Weiner, [facility] [address] [facility] [address] [place] [address] Engineer Of System Development Physical Therapy 12/12/20 Stephen Barth MD [address] [place] [address] Referring Physician Transplant 10/19/23 documented as of this encounter
--- OUTSIDE RECORDS SUMMARY | 2024-07-12 08:36 | XMS_ITS | Encounter Summary ---
Author Organization [facility] Healthcare Address [address] [place] [address] Care Team Providers Care Transportation Operations Manager Name Role Phone Enmanuel Gan MD Primary Care Provider [phone] Tg Houston MD Unavailable [phone] Guerrero Hunter DPT Unavailable [phone] Guerrero Weiner BAR HOST/HOSTESS Unavailable [phone] Stephen Barth MD Unavailable [phone] Reason for Referral * Cardiology (Routine) - Authorized Specialty Diagnoses / Procedures Referred By Contac t Referred To Contact Diagnoses ICD (implantable cardioverter-defibrillator), dual, in situ Procedures DEVICE CHECK - IN OFFICE Clara Thakkar NP [address] [facility] [address] [address] Phone: tel: fax: [facility] Referral ID Status Reason Start Date Expiration Date V isits Requested Visits Authorized [id number] Authorized 03/24/2024 04/23/2025 1 1 Encounter Details Date Type Department Care Team (Late st Contact Info) Description 04/04/2024 1:00 PM CDT Office Visit Arrhythmia Center [address] [facility] [address] [address] Clara Thakkar NP [address] [place] [address] ICD (implantable cardioverter-defibril lator), dual, in situ (Primary Dx); Cardiac arrhythmia, unspecified cardiac arrhythmia type; Paroxysmal atrial fibrillation with rapid ventricular response (HCC) Social History Tobacco Use Types Packs/Day [...] materials from doctor or pharmacy Never 02/24/2024 [facility] Utilities Answer Date Recorded In the past 12 months has [employer], gas, oil, or water [employer] threatened to shut off services in your [...] often do you attend chur ch or nondenominational services? Never 02/22/2024 Do you belong to any clubs o r organizations such as baptist groups, unions, fraternal or athletic groups, or [...] any time in the past 12 m [facility], were you homeless or living in a detention (including now)? No 01/07/2024 Personal Safety Answer Date Recorded Have you ever been in or are you currently in a harmful physical or emotional relationship or is someone making you feel afraid or unsafe? 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 Gender Identity Not on file Sexual Orientation Lesbian 05/24/2019 9: 06 AM CDT documented as of this encounter Last Filed Vital Signs Vital Sign Reading Time Taken Comments Blood Pressure 128/82 04/04/2024 1:26 PM CDT Pulse 60 04/04/2024 1:26 PM CDT Temperature - - Respiratory Rate - - Oxygen Saturation - - Inhaled Oxygen Concentration - - Weight 79.4 kg (175 lb) 04/04/2024 1:26 PM CDT Height 162.6 cm (5' 4 ) 04/04/2024 1:26 PM CDT Body Mass Index 30.04 04/04/2024 1:26 PM CDT documented in this encounter Ordered Prescriptions Prescription Sig Dispense Quantity Refills Last Filled Start Date End Date metoprolol tartrate (LOPRESSOR) 50 mg immediate release tabletIndications: Atrial Arrhythmia Take 0.5 tablets (25 mg total) by mouth 2 (two) times a day 90 tablet 3 04/04/2024 documented in this encounter Progress Notes * Clara Thakkar, CAMPUS MONITOR - 04/04/2024 1:00 PM CDT Images from the original note were not included. [facility] Arrhythmia Center [address] [place] [address], [address] [address] Office Visit Note Patient Name: Macie Briseno Date of : 1945 Primary Physician: Enmanuel Gan MD Chief Complaint Av block History of hypertrophic cardiomyopathy History of dual-chamber ICD placement HPI Macie Briseno is a 78 y.o. female seen in follow-up today for her history of AV block, hypertrophic cardiomyopathy, and previously placed ICD. She has a past history of : AV block, second degree. With alternating bundle branch block and presyncope. Atrial fibrillation, paroxysmal. History of flecainide use, stopped due to AV block. On apixaban. Hypertrophic cardiomyopathy, apical variant. Confirmed by cMRI 04/10/21. Max transmural dimension 1.5 cm. No obstruction. Relevant comorbidities: Hypertension She underwent placement of a dual-chamber ICD by Dr. Recio on 05/28/2021. She presents in follow-up today after receiving inappropriate ICD shocks for atrial fibrillation. She was in [place] in June of 2023. At that time she received inappropriate ICD shocks for rapid atrial fibrillation. Since that time we had increased her diltiazem. During a recent spinal surgery she developed rapid atrial fibrillation with hypotension and underwent cardioversion. At that time she was placed on amiodarone and discharged home. This was in November of 2023. She is currently off amiodarone ECG on my review today sinus rhythm (60) with normal QRS duration and QT interval Past Medical History Past Medical History: Diagnosis Date Allergic rhinitis Anxiety unknown maybe 1989 Arthritis 2018 Atrial fibrillation (CMS/HCC) (HCC) Auditory vertigo Meniere's disease Coronary artery disease Depression 1989 Heart disease Afib 2019 HL (hearing loss) HLD (hyperlipidemia) Meniere's disease Microvascular angina (HCC) Mixed conductive and sensorineural hearing loss 1989 Osteoporosis 2013 Tinnitus Past Surgical History Past Surgical History: Procedure Laterality Date BACK SURGERY 2017 REVISION November 2023; lower back, 2018, 2019 BRAIN SURGERY Left Ear cochlear implant 2020 CHOLECYSTECTOMY Cholecystectomy COCHLEAR IMPLANT Left 06/19/2020 IR INJECTION ARTHROGRAM SI JOINT BILATERAL WITH GUIDANCE Bilateral 02/15/2021 IR INJECTION ARTHROGRAM SI JOINT LEFT INCLUDES IMAGING GUIDANCE Left 09/06/2021 JOINT REPLACEMENT Hip replacement, L - 2013, R - 2014 - Nataliya OTHER SURGICAL HISTORY 1998 Sectioning of left vesibular nerve SPINE SURGERY 2017, 2017, 2018, 2019 TOTAL HIP ARTHROPLASTY Bilateral 2013 VESTIBULAR NERVE SECTION Left Medications Current Outpatient Medications Medication Instructions acetaminophen 1,000 mg, oral, Every 6 hours PRN alendronate (FOSAMAX) 70 mg, oral, Every 7 days, On Thursday amiodarone (PACERONE) 200 mg tablet Take 2 tablets (400mg) the evening of 12/14/23. Starting 12/15/23, take one tablet (200mg) once a day. Follow up with your machine lacer within one week of discharge. atorvastatin (LIPITOR) 20 mg, oral, Nightly azelastine (ASTELIN) 137 mcg (0.1 %) nasal spray spray(s), 0 calcium carbonate (CALCIUM 500 ORAL) 500 mg, oral, Daily cholecalciferol (VITAMIN D-3) 1,000 Units, oral, Daily diphenhydrAMINE (BENADRYL) 50 mg, oral, Every [address] (CYMBALTA) 60 mg, oral, Every morning Eliquis 5 mg tablet DO NOT TAKE THIS MEDICATION UNTIL AFTER YOU COMPLETE YOUR LOVENOX INJECTIONS (JANUARY 14, 2024). ON JANUARY 14, 2024 YOU MAY RESUME TAKING 5MG BY MOUTH TWICE A DAY. fluticasone propionate (FLONASE) 50 mcg/actuation nasal spray 1 spray(s), Nasal, daily, 1 each, [place], 0 furosemide (LASIX) 40 mg, oral, 2 times daily, This medication dose was changed during your admission. Follow up with your machine lacer within one week of discharge regarding this medication. furosemide (LASIX) 40 mg, oral, Daily magnesium citrate,mag oxide 250 mg, oral, Daily methocarbamoL (ROBAXIN) 750 mg, oral, Every 8 hours metoprolol tartrate (LOPRESSOR) 25 mg, oral, 2 times daily potassium chloride ER (KLOR-CON) 20 mEq CR tablet 20 mEq, oral, Daily sucralfate (CARAFATE) 2 g Allergies Allergies Allergen Reactions Adhesive Rash and Blisters Surgical tape Cefadroxil Rash Tolerated Ceftriaxone. Cefadroxil Hives and Itching Chlorhexidine Rash Sulfa (Sulfonamide Antibiotics) Hives and Rash Gabapentin Other (See comments) Retain water Family History Family History Problem Relation Age of Onset Hypertension Mother Cancer Mother No Known Problems Father No Known Problems Sister No Known Problems Brother No Known Problems Maternal Grandmother No Known Problems Maternal Grandfather No Known Problems Paternal Grandmother No Known Problems Paternal Grandfather No Known Problems Mother's Sister No Known Problems Mother's Brother No Known Problems Father's Sister No Known Problems Father's Brother Anemia Neg Hx Arrhythmia Neg Hx Asthma Neg Hx Clotting disorder Neg Hx Fainting Neg Hx Heart attack Neg Hx Heart disease Neg Hx Heart failure Neg Hx Hyperlipidemia Neg Hx Hypertrophic cardiomyopathy Neg Hx Stroke Neg Hx Sudden Cardiac Neg Hx Anesthesia problems Neg Hx Malig Hypertension Neg Hx Malig Hyperthermia Neg Hx Pseudochol deficiency Neg Hx Social History Social History Tobacco Use Smoking status: Never Smokeless tobacco: Never Substance and Sexual Activity Drug use: Never Sexual activity: Not Currently Partners: Female control/protection: None Comment: same sex Alcohol Use: Not At Risk (12/02/2023) AUDIT-C Frequency of Alcohol Consumption: 4 or more times a week Average Number of Drinks: 1 or 2 Frequency of Binge Drinking: Never Objective Physical Exam Vitals reviewed. Constitutional: Appearance: Normal appearance. She is well-developed. She is obese. HENT: Head: Normocephalic and atraumatic. Right Ear: External ear normal. Left Ear: External ear normal. Nose: Nose normal. Mouth/Throat: Mouth: Mucous membranes are moist. Pharynx: Oropharynx is clear. Eyes: Conjunctiva/sclera: Conjunctivae normal. Pupils: Pupils are equal, round, and reactive to light. Cardiovascular: Rate and Rhythm: Normal rate and regular rhythm. Pulses: Normal pulses. Heart sounds: Normal heart sounds. No murmur heard. Pulmonary: Effort: Pulmonary effort is normal. Breath sounds: Normal breath sounds. Abdominal: General: Bowel sounds are normal. Palpations: Abdomen is soft. Musculoskeletal: General: Normal range of motion. Cervical back: Normal range of motion and neck supple. Skin: General: Skin is warm and dry. Neurological: General: No focal deficit present. Mental Status: She is alert and oriented to person, place, and time. Psychiatric: Mood and Affect: Mood normal. Behavior: Behavior normal. Review of Systems Constitutional: Negative. HENT: Negative. Eyes: Negative. Respiratory: Positive for shortness of breath. Cardiovascular: Negative. Gastrointestinal: Negative. Genitourinary: Negative. Musculoskeletal: Negative. Skin: Negative. Neurological: Negative. Endo/Heme/Allergies: Negative. Psychiatric/Behavioral: Negative. Assessment/Plan Atrial fibrillation, unspecified type (HCC) (Primary) - DEVICE CHECK - IN OFFICE; Future Hypertrophic cardiomyopathy Av block Status post placement of a dual-chamber ICD. The patient's device was interrogated today and found to be functioning appropriately. No significant programming changes were made at this time. The patient will continue to be followed through the Arrhythmia center device clinic remotely and with in office device interrogations as needed. Shortness of breath, chronic Atrial fibrillation with inappropriate ICD shocks for rapid rates. 1 in the setting of spinal surgery. Plan: Ms. Briseno after receiving inappropriate ICD shocks for rapid atrial fibrillation. During that timeher rate limiting medications were increased. She was placed on amiodarone but currently this has been discontinued. We will continue her current medications if she has recurrent ICD shocks or an increasing burden could consider catheter ablation. Will continue anticoagulation for stroke prevention She is agreeable to the above plan She will follow-up as scheduled Clara Thakkar NP [facility] Arrhythmia Center Diagnoses and all orders for this visit: ICD (implantable cardioverter-defibrillator), dual, in situ (Primary) - DEVICE CHECK - IN OFFICE; Future Cardiac arrhythmia, unspecified cardiac arrhythmia type - ECG 12 lead documented in this encounter Plan of Treatment Scheduled Orders Name Type Priority Associated Diagnoses Orde r Schedule DEVICE CHECK - IN OFFICE Cardiac Services Routine ICD (implantable cardioverter-defibrill ator), dual, in situ Expected: 03/24/2024, Expires: 09/23/2025 documented as of this encounter Procedures Procedure Name Priority Date/Time Associated Diagnosis Comments ECG 12-LEAD Routine 04/04/2024 1:27 PM CDT Cardiac arrhythmia, unspecified cardiac arrhythmia type documented in this encounter Results * ECG 12 lead (04/04/2024 1:27 PM CDT) us Clara Thakkar NP ECG ORDERABLES Final Resu lt documented in this encounter Visit Diagnoses Diagnosis ICD (implantable cardioverter-defibrillator), dual, in situ- Primary Cardiac arrhythmia, unspecified cardiac arrhythmia type Paroxysmal atrial fibrillation with rapid ventricular response (HCC) documented in this encounter Discontinued Medications Medication Sig Discontinue Reason Start Date End Da te metoprolol tartrate (LOPRESSOR) 25 mg immediate release tabletIndications:Atrial Arrhythmia TAKE 1 TABLET(25 MG) BY MOUTH TWICE DAILY 01/18/2024 04/04/2024 documented as of this encounter Care Teams Transportation Operations Manager Relationship Specialty Start Date End Date Enmanuel Gan MD [address] [place] [address] PCP - General Internal Medicine 04/26/20 Tg Houston MD [address] [facility] [address] [place] [address] Consulting Physician Cardiology 12/23/20 Guerrero Hunter DPT [address] [facility] [address] [facility] [place] [address] Physical Therapist Physical Therapy 11/08/20 Guerrero Weiner, BAR HOST/HOSTESS [id number] [place] [address] Laser Systems Engineer Physical Therapy 12/12/20 Stephen Barth MD [address] [facility] [address] [place] [address] Referring Physician Transplant 10/19/23 documented as of this encounter
--- OUTSIDE RECORDS SUMMARY | 2024-07-12 08:37 | XMS_ITS | Encounter Summary ---
Author Organization [facility] Healthcare Address [address] [place] [address] Care Team Providers Care Assistant To The Ceo Name Role Phone Enmanuel Gan MD Primary Care Provider [phone] Tg Houston MD Unavailable [phone] Guerrero Hunter DPT Unavailable [phone] Guerrero Weiner LAB ASSISTANT Unavailable [phone] Stephen Barth MD Unavailable [phone] Reason for Referral * Diagnostic Imaging (Routine) - Closed Specialty Diagnoses / Procedures Referred By Contac t Referred To Contact Diagnoses Lumbar radiculopathy Procedures XR Scoliosis 4 or 5 Views Jeremy Michelle MD [address] [place] [address] Phone: tel: fax: [facility] Referral ID Status Reason Start Date Expiration Date Visits Re quested Visits Authorized [id number] Closed 02/19/2024 03/20/2025 1 1 Reason for Visit * Diagnostic Imaging (Routine) - Closed Specialty Diagnoses / Procedures Referred By Contac t Referred To Contact Diagnoses Lumbar radiculopathy Procedures XR Scoliosis 4 or 5 Views Jeremy Michelle MD [address] [place] [address] Phone: tel: fax: [facility] Referral ID Status Reason Start Date Expiration Date Visits Re quested Visits Authorized [id number] Closed 02/19/2024 03/20/2025 1 1 Encounter Details Date Type Department Care Team (Latest Contact Info) Description 02/23/2024 8:00 AM CDT - 02/23/2024 11:59 PM CDT Hospital Encounter [facility]) [address] [place] [id number] Lumbar radiculopathy Discharge Disposition: Discharge to home or self [...] Never 02/24/2024 [facility] Utilities Answer Date Recorded In the past [...] often do you attend chur ch or evangelical services? Never 02/22/2024 Do you belong to any clubs o r organizations such as confucianism groups, unions, fraternal or athletic groups, or [...] any time in the past 12 m [facility], were you homeless or living in a halfway (including now)? No 01/07/2024 Personal Safety Answer Date Recorded Have you ever been in or are you currently in a harmful physical or emotional relationship or is someone making you feel afraid or unsafe? 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 Indications: low vitamin D levels DULoxetine DR (CYMBALTA) 60 mg capsuleIndications :Anxiety [...] spray 1 spray(s), Nasal, daily, 1 each, [place], 0 08/20/2023 magnesium citrate and oxide (magnesium [...] tablet 2 tablets (2 g total) 08/20/2023 alendronate (FOSAMAX) 70 mg tabletIndications: Post-Menopausal Osteoporosis Take 70 mg by mouth every 7 days. On Thursday Indications: decreased bone mass following menopause 4 diphenhydrAMINE (BENADRYL) 50 mg capsuleIndications :allergic reaction Take 50 mg by mouth every 4 (four) hours as needed for allergies or itching. Indications: an allergic reaction 02/10/2024 4 furosemide (LASIX) 40 mg tabletIndications: Pulmonary Edema due to Chronic Heart Failure Take 40 mg by mouth daily. Indications: fluid in the lungs due to chronic heart failure 02/08/2024 4 metoprolol tartrate (LOPRESSOR) 25 mg immediate release tabletIndications: Atrial Arrhythmia TAKE 1 TABLET(25 MG) BY MOUTH TWICE DAILY 180 tablet 1 01/18/2024 4 documented as of this encounter Discharge Disposition Disposition Code Departure Means Destination Discharge to home or self care documented in this encounter Plan of Treatment Not on file documented as of this encounter Procedures Procedure Name Priority Date/Time Associated Diagnosis Comments XR SCOLIOSIS 4 OR 5 VW Schedule Routine, Read Routine (OP Routine) 02/23/2024 8:35 AM CDT Lumbar radiculopathy documented in this encounter Results * XR Scoliosis 4 or 5 Views (02/23/2024 8:35 AM CDT) Anatomical Region Laterality Modality Spine N/A Computed Radiogr aphy 02/23/2024 9:33 AM CDT Impressions 02/23/2024 10:06 AM CDT Unchanged posterior instrumented fusion from T10 through pelvis with bilateral iliac screws and mild anterior sagittal imbalance. Dictated by: Deandre Strong MD The radiology attending physician has personally reviewed this study, and had reviewed and/or edited this written report and agrees with it. Electronically signed by: Dereck Soni M.D. Narrative 02/23/2024 10:06 AM CDT EXAMINATION: 1. ??XR SCOLIOSIS 4 OR 5 VW HISTORY: SPINAL DEFORMITY COMPARISON: Radiograph the spine from 01/05/2024 FINDINGS: 6 radiographs of the spine are submitted for evaluation. Left subclavian approach pacemaker defibrillator with leads overlying the right atrium and right ventricle. ??Changes of bilateral total hip arthroplasty. ??There is unchanged posterior instrument fusion with decompression from T10 through pelvis with bilateral iliac screws. Instrumentation appears intact. ??There is combined anterior fusion from L2 to S1. ??Surgical clips overlie the right upper quadrant. No significant scoliotic curvature of the spine. ??No significant pelvic obliquity. ??No coronal and balance. ??Mild anterior sagittal imbalance. Procedure Note Dereck Soni MD - 02/23/2024 EXAMINATION: 1. XR SCOLIOSIS 4 OR 5 VW HISTORY: SPINAL DEFORMITY COMPARISON: Radiograph the spine from 01/05/2024 FINDINGS: 6 radiographs of the spine are submitted for evaluation. Left subclavian approach pacemaker defibrillator with leads overlying the right atrium and right ventricle. Changes of bilateral total hip arthroplasty. There is unchanged posterior instrument fusion with decompression from T10 through pelvis with bilateral iliac screws. Instrumentation appears intact. There is combined anterior fusion from L2 to S1. Surgical clips overlie the right upper quadrant. No significant scoliotic curvature of the spine. No significant pelvic obliquity. No coronal and balance. Mild anterior sagittal imbalance. IMPRESSION: Unchanged posterior instrumented fusion from T10 through pelvis with bilateral iliac screws and mild anterior sagittal imbalance. Dictated by: Deandre Strong MD The radiology attending physician has personally reviewed this study, and had reviewed and/or edited this written report and agrees with it. Electronically signed by: Dereck Soni M.D. Jeremy Michelle MD IMG XR PROCEDURES Fi nal Result documented in this encounter Visit Diagnoses Diagnosis Lumbar radiculopathy Thoracic or lumbosacral neuritis or radiculitis, unspecified documented in this encounter Care Teams Assistant To The Ceo Relationship Specialty Start Date End Date Enmanuel Gan MD [address] [place] [address] PCP - General Internal Medicine 04/26/20 Tg Houston MD [address] [place] [address] Consulting Physician Cardiology 07/18/20 Guerrero Hunter DPT [address] [facility] [address] [place] [address] Physical Therapist Physical Therapy 11/08/20 Guerrero Weiner, [facility] [address] [facility] [address] [place] [address] Assistant Professor Of Psychology Physical Therapy 12/12/20 Stephen Barth MD [address] [place] [address] Referring Physician Transplant 10/19/23 documented as of this encounter
--- OUTSIDE RECORDS SUMMARY | 2024-07-12 08:37 | XMS_ITS | Encounter Summary ---
Author Organization [facility] Address [address] [place] [address] Phone Care Team Providers Care Skiing Teacher Name Role Phone Enmanuel Gan MD Primary Care Provider [phone] Tg Houston MD Unavailable [phone] Guerrero Hunter DPT Unavailable [phone] Guerrero Weiner CLINICAL DOCUMENTATION SPECIALIST Unavailable + Stephen Barth MD Unavailable [phone] Reason for Visit * Reason Comments Follow-up * Consultation (Routine) - Authorized Specialty Diagnoses / Procedures Referred By Contac t Referred To Contact Infectious Diseases Diagnoses Infection of lumbar spine (CMS/HCC) (HCC) Susan Foley MD [address] [facility] [address] [place] [address] Phone: tel: fax: [facility] (All Locations) Referral ID Status Reason Start Date Expiration Date Visits Requested Visits Authorized [id number] Authorized Specialty Services Required 01/27/2024 02/05/2025 99 99 Encounter Details Date Type Department Care Team (Late st Contact Info) Description 02/18/2024 1:20 PM CDT Office Visit [facility] Infectious Diseases [address] [place] [address] [address] [place] [address] Rose Marie Holloway NP [address] [place] [address] Infection of lumbar spine (CMS/HCC) (HCC) (Primary Dx) Social History Tobacco [...] materials from doctor or pharmacy Never 02/24/2024 [facility] Utilities Answer Date Recorded In the past 12 months has e [employer], oil, or water [employer] threatened to shut off services in your [...] often do you attend chur ch or zoroastrianism services? Never 02/22/2024 Do you belong to any clubs o r organizations such as mu-ism groups, unions, fraternal or athletic groups, or [...] any time in the past 12 m [facility], were you homeless or living in a intermediate (including now)? No 01/07/2024 Personal Safety Answer Date Recorded Have you ever been in or are you currently in a harmful physical or emotional relationship or is someone making you feel afraid or unsafe? 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 Gender Identity Not on file Sexual Orientation Lesbian 05/24/2019 9: 06 AM CDT documented as of this encounter Last Filed Vital Signs Vital Sign Reading Time Taken Comments Blood Pressure 107/67 02/18/2024 1:29 PM CDT Pulse 61 02/18/2024 1:29 PM CDT Temperature 36.5 ??C (97.7 ??F) 02/18/2024 1:29 PM CD T Respiratory Rate - - Oxygen Saturation - - Inhaled Oxygen Concentration - - Weight 77.6 kg (171 lb) 02/18/2024 1:29 PM CDT Height 165 cm (5' 4.96 ) 02/18/2024 1:29 PM CDT Body Mass Index 28.49 02/18/2024 1:29 PM CDT documented in this encounter Progress Notes * Rose Marie Holloway, LU - 02/18/2024 1:20 PM CDT General Infectious Diseases Post Hospital Visit Patient Name: Macie Briseno [facility] INFECT[facility] DISE[facility] [address] [place] [phone] Subjective Chief complaint of L1 discitis/osteomyelitis HPI: Macie Briseno is a 78 y.o. female with a PMH of multiple spine surgeries including prior posterior spinal instrumented fusion L1-L4 in 06/2020 which was revision due to a prior nonunion L2-L3 withworsening kyphosis c/b new nonunion who was recently admitted for revision with [id number] PSF, nowreadmitted given positive OR cultures. 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 Patient underwent revision with extension up to T10 and extending down topelvis PSIF T12/L1 and L1/2 posterior column osteotomies, and L1 removal of hardware/screws bilaterally on [...] she was readmitted to start IV antibiotics. She reports back pain initially started about 6 months prior to her last surgery that was causing her difficulty keeping a straight back due to worsening kyphosis. She denies any fevers, chills or other systemic symptoms before or after surgery. She denies any antibiotics prior or after surgery. Surgical incision healed well. Since surgery she now has a pain over the area but she describes it as a different type of pain that is related to surgery, also notes numbness at the incision site. She was started on IV ceftriaxone with plan for 6 weeks, since no hardware retained at nonunion site no clear indication for suppression. Interval History: Patient presents to clinic for a return visit. Since we last saw her she was transitioned to Cefadroxil for the last two weeks of her therapy. Several days after starting this medications, she broke out in hives. She was then started on Doxycyline instead. She has tolerated the doxycyline well and took her last dose last night. Her surgical incision has healed well and she denies swelling, erythema, drainage, and warmth of the incision. Her back pain has much improved and she is getting stronger. She denies fevers, chills, and night sweats. She has tolerated the antibiotics well without nausea, vomiting or diarrhea. Organism: MSSE Site of infection: L1 Retained hardware: Yes Location: Fusion [id number], no hardware at nonunion site Recent surgery: Fusion Surgeon: Miguel Angel Please see consult note dated: 01/05 Current antibiotic therapy: Doxycycline 100mg po BID(Ceftriaxone 2 grams IV every 24 hours, Cefadroxil 1000mg PO BID) Antibiotic start date: 01/05 Compliance with antibiotics: missed 0 doses. The patient has completed 6 weeks of antibiotic therapy. Adverse effects from antibiotic therapy: none Review of systems: Review of Systems Constitutional: Negative for chills, fatigue and fever. Respiratory: Negative for shortness of breath. Gastrointestinal: Negative for abdominal pain, diarrhea, nausea and vomiting. Musculoskeletal: Negative for back pain. Skin: Negative for rash and wound. Psychiatric/Behavioral: Negative for confusion. Objective Medical Conditions Diagnosis Microvascular angina (HCC) Dyslipidemia Sensorineural hearing loss, asymmetrical Lumbago Neck pain Orthopedic aftercare Tinnitus, subjective Active cochleovestibular Meniere's disease Arthralgia of hip Chronic nonseasonal allergic rhinitis due to pollen Facet arthritis of cervical region Facet arthritis of lumbar region Facet arthropathy, thoracic Foreign body in left ear Hx of decompressive lumbar laminectomy Lumbar radiculopathy Major depressive disorder, single episode, moderate (HCC) Primary osteoarthritis involving multiple joints Pure hypercholesterolemia History of bilateral total hip arthroplasty S/P laparoscopic cholecystectomy Tinnitus Sudden idiopathic hearing loss of right ear Follow-up examination following surgery Essential hypertension Sensorineural hearing loss (SNHL) of both ears SNHL (sensory-neural hearing loss), asymmetrical Meniere's disease of both ears Abnormal ECG Inflammatory spondylopathy of thoracic region ([facility]) History of spinal fusion for scoliosis Acute low back pain Prophylactic antibiotic Paroxysmal atrial fibrillation (CMS/HCC) ([facility]) Late effects of spine fusion Post-operative pain Abnormal echocardiogram AV block, 2nd degree Apical variant hypertrophic cardiomyopathy ([facility]) Fusion of spine of thoracolumbar region ICD (implantable cardioverter-defibrillator), dual, in situ Hypersomnolence SNIDER (dyspnea on exertion) Pseudoarthrosis of lumbar spine Encounter for education Infection of lumbar spine (CMS/HCC) ([facility]) Encounter for screening examination for sexually transmitted disease Osteomyelitis of vertebra, lumbar region ([facility]) Allergies: Adhesive, Cefadroxil, Cefadroxil, Chlorhexidine, Sulfa (sulfonamide antibiotics), and Gabapentin HOME MEDICATIONS : acetaminophen 500 mg capsule alendronate (FOSAMAX) 70 mg tablet amiodarone (PACERONE) 200 mg tablet atorvastatin (LIPITOR) 20 mg tablet azelastine (ASTELIN) 137 mcg (0.1 %) nasal spray calcium carbonate (CALCIUM 500 ORAL) cholecalciferol (VITAMIN D-3) 1,000 unit capsule diphenhydrAMINE (BENADRYL) [address] (CYMBALTA) 60 mg capsule Eliquis 5 mg tablet fluticasone propionate (FLONASE) 50 mcg/actuation nasal spray furosemide (LASIX) 40 mg tablet furosemide (LASIX) 40 mg tablet magnesium citrate and oxide (magnesium citrate,mag oxide) 250 mg capsule methocarbamoL (ROBAXIN) 750 mg tablet metoprolol tartrate (LOPRESSOR) 25 mg immediate release tablet potassium chloride ER (KLOR-CON) 20 mEq CR tablet sucralfate (Carafate) 1 gram tablet Vitals: Most Recent : Vitals BP 107/67 (BP Location: Left arm, Patient Position: Sitting) Pulse 61 Temp 36.5 ??C (97.7 ??F) (Oral) Ht 165 cm (5' 4.96 ) Wt 77.6 kg (171 lb) BMI 28.49 kg/m?? Physical Exam Constitutional: General: She is not in acute distress. Appearance: She is not toxic-appearing. HENT: Head: Normocephalic and atraumatic. Eyes: Extraocular Movements: Extraocular movements intact. Cardiovascular: Rate and Rhythm: Normal rate and regular rhythm. Heart sounds: Normal heart sounds. No murmur heard. Pulmonary: Effort: Pulmonary effort is normal. No respiratory distress. Breath sounds: Normal breath sounds. Musculoskeletal: Lumbar back: No swelling or bony tenderness. Comments: Surgical incision healed without open areas, drainage, swelling, warmth or erythema. Skin: General: Skin is warm and dry. Findings: No rash. Neurological: General: No focal deficit present. Mental Status: She is alert and oriented to person, place, and time. Mental status is at baseline. Psychiatric: Mood and Affect: Mood normal. Behavior: Behavior normal. Thought Content: Thought content normal. Judgment: Judgment normal. Lab/Microbiology/Radiology/Diagnostic Review Lab Results Component Value Date WBC 6.5 02/02/2024 HGB 12.1 02/02/2024 HCT 38.2 02/02/2024 MCV 87.0 02/02/2024 LABPLAT 338 02/02/2024 Lab Results Component Value Date GLUCOSE 74 02/02/2024 CALCIUM 9.6 02/02/2024 SODIUM 140 02/02/2024 POTASSIUM 4.2 02/02/2024 CO2 29 02/02/2024 CHLORIDE 99 02/02/2024 BUNSER 20 02/02/2024 CREATININE 1.01 02/02/2024 Lab Results Component Value Date ALT 26 02/02/2024 AST 31 02/02/2024 ALKPHOS 113 02/02/2024 BILITOT 0.3 02/02/2024 Lab Results Component Value Date CRP 3.2 02/04/2024 Lab Results Component Value Date SEDRATE 14 02/04/2024 Routine ID screening: No results found for: [id number] , HEPCAB , LABRPR Micro: Lab Results Component Value Date MICROBIOLOGY Amended Report - Complete: Negative 12/06/2023 Assessment/Plan 78 y.o. female with PMH of multiple [...] she was readmitted to start IV antibiotics. ESR 26CRP 43. She was started on IV ceftriaxone with plan for 6 weeks, since no hardware retained at nonunion site no clear indication for suppression. Infection of lumbar spine (CMS/HCC) (HCC) -Patient presents to clinic for a return [...] ID clinic with any questions or concerns. Follow up: - Return if symptoms worsen or fail to improve. Visit Diagnosis: 1. Infection of lumbar spine (CMS/HCC) (HCC) Rose Marie Mock- the Nurse Practitioner, have reviewed and examined this patient with the supervising MD present in the office suite, Dr. Russo . Cosigned by Eddie Russo MD at 02/23/2024 1:55 PM CDT Associated attestation - Eddie Russo MD - 02/23/2024 1:55 PM CDT I have reviewed this non physician provider note. Patient has history of complex spinal surgeries with recent revision [id number] PSF 12/02/2023 at which time ortho spine Due to her kyphotic deformity we removed the pedicle screws at L1 bilaterally. We debrided the holes and packed them with bone graft. They did not appear to have any sort of infection but we sent cultures nonetheless. Cultures returned +ve MSSE. Patient completed 6 weeks of ceftriaxone. No plans for oral antibiotic suppression due to lack of hardware in the immediate vicinity of L1 screw. Eddie Russo MD documented in this encounter Miscellaneous Notes * Assessment & Plan Note - Rose Marie Holloway NP - 02/23/2024 9:24 AM CDT Associated Problem(s): Infection of lumbar spine (CMS/HCC) (HCC) -Patient presents to clinic for a return [...] ID clinic with any questions or concerns. documented in this encounter Plan of Treatment Not on file documented as of this encounter Visit Diagnoses Diagnosis Infection of lumbar spine (CMS/HCC) (HCC)- Primary documented in this encounter Care Teams Skiing Teacher Relationship Specialty Start Date End Date Enmanuel Gan MD [address] [facility] [address] [place] [address] PCP - General Internal Medicine 04/26/20 Tg Houston MD [address] [place] [address] Consulting Physician Cardiology 07/18/20 Guerrero Hunter DPT [address] [facility] [address] [place] [address] Physical Therapist Physical Therapy 11/08/20 Guerrero Weiner, CLINICAL DOCUMENTATION SPECIALIST [address] [facility] [address] [place] [address] Film Casting Operator Physical Therapy 12/12/20 Stephen Barth MD [address] [facility] [address] [place] [address] Referring Physician Transplant 10/19/23 documented as of this encounter
--- OUTSIDE RECORDS SUMMARY | 2024-07-12 08:37 | XMS_ITS | Encounter Summary ---
Author Organization [facility] Healthcare Address [address] [place] [address] Care Team Providers Care Document Review Specialist Name Role Phone Enmanuel Gan MD Primary Care Provider [phone] Tg Houston MD Unavailable [phone] Guerrero Hunter DPT Unavailable [phone] Guerrero Weiner COMMUNITY ENGAGEMENT LEADER Unavailable [phone] Stephen Barth MD Unavailable [phone] Reason for Visit * Cardiology (Routine) - Closed Specialty Diagnoses / Procedures Referred By Contac t Referred To Contact Diagnoses NICM (nonischemic cardiomyopathy) (CMS/HCC) (HCC) Procedures DEVICE CHECK - REMOTE Ashvin Recio III, MD [address] [facility] [address], [place] [address] Phone: tel: fax: [facility] Medical Group Referral ID Status Reason Start Date Expiration Date Visits Re quested Visits Authorized [id number] Closed 01/26/2023 07/29/2024 1 1 Encounter Details Date Type Department Care Team (Latest Contact Info) Description 02/22/2024 7:45 AM CDT Ancillary Procedure Arrhythmia [facility] [address], [place] [address] NICM (nonischemic cardiomyopathy) (CMS/HCC) (HCC) Social History Tobacco Use Types Packs/Day Years Used Date Smoking Tobacco: Never Smokeless Tobacco: Never Alcohol Use Standard Drinks/Week Comments Yes 5 (1 standard drink = 0.6 oz pur e alcohol) OASIS D0700: Social Isolation Answer Da te Recorded Frequency of experiencing loneliness or isolatio n Never 01/09/2024 OASIS A1250: Transportation Answer Date Recorded Lack of Transportation (Medical) No 01/09/2024 Lack of Transportation (Non-Medical) No 01/09/2024 Patient Unable or Declines to Respond No 01/09/2024 OASIS B1300: Health Literacy Answer Ramin e Recorded Frequency of needing help to read materials from doctor or pharmacy Never 01/09/2024 [facility] Utilities Answer Date Recorded In [...] often do you attend chur ch or amish services? Never 02/22/2024 Do you belong to any clubs o r organizations such as hoahaoism groups, unions, fraternal or athletic groups, or [...] any time in the past 12 m [facility], were you homeless or living in a fci (including now)? No 01/07/2024 Personal Safety Answer Date Recorded Have you ever been in or are you currently in a harmful physical or emotional relationship or is someone making you feel afraid or unsafe? 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 ICD CHECK (REMOTE) Patient ID: Macie Briseno is a 78 y.o. female This patient received a [employer] scientific ICD. ??They had a remote transmission on 02/22/2024. Device implant indications: ??Nonischemic dilated cardiomyopathy ?? Interrogation of the patient's device demonstrates the following: Presenting EGM: ??A paced V sensed @ 60 bpm Original Device Settings Right Atrium Right Ventricle Sensitivity (mV) Auto mV Auto mV Pacing Outputs 2.5 V @ 0.4 ms 2.5 V @ 0.4 ms ?? Testing Measurements Right Atrium Right Ventricle Sensitivity (mV) 3.7 mV Greater than 25 mV Impedence (Ohms) 625 ohms 437 ohms High Voltage Impedence ??73 ohms Pace Threshold Not done V @ ??ms Not done V @ ??ms Pacing % 34 % 1 % Battery Status: ??10.5 years to YURIDIA with Charge Time 9.7 seconds Episodes last 90 days/Comments: AF [place] 2%, there were numerous episodes of AT/AF the longest lasting 1 hour and 40 minutes ventricular rates ranged from the 80s to 130 beats per minute. ?? There were 5 episodes of nonsustained ventricular tachycardia the longest lasting 20 seconds, there were no available EGMs for review. There were no treated ventricular arrhythmias noted on today's remote interrogation. ?? NORMAL DEVICE FUNCTION PROGRAMMED Medications: Anti-coagulant(s): ??Eliquis 5 mg twice daily Anti-arrhythmic(s): ??Amiodarone 200 mg daily PLAN: 1) [employer] scientific ICD evaluation. 2) [employer] scientific remote transmission scheduled in 3 months. 3) Programming appropriate for device measurements Jacob Latif RN Ashvin Recio III, MD [facility] C[facility]IAC SERVICES PROCEDURES Final Result documented in this encounter Visit Diagnoses Diagnosis NICM (nonischemic cardiomyopathy) (CMS/HCC) (HCC) documented in this encounter Care Teams Document Review Specialist Relationship Specialty Start Date End Date Enmanuel Gan MD [address] [facility] [address] [place] [address] INTERNAL MEDICINE [place], [place] [id number] PCP - General Internal Medicine 04/26/20 Tg Houston MD [address] [place] [address] Consulting Physician Cardiology 07/18/20 Guerrero Hunter, DPT [address] [facility] [address] [facility] [place] [address] Physical Therapist Physical Therapy 11/08/20 Guerrero Weiner, [facility] [address] [facility] [address] [place], [place] [id number] Carpenter/Labor Physical Therapy 12/12/20 Stephen Barth MD [address] [place] [address] Referring Physician Transplant 10/19/23 documented as of this encounter
--- OUTSIDE RECORDS SUMMARY | 2024-07-12 08:37 | XMS_ITS | Encounter Summary ---
Author Organization [facility] Healthcare Address [address] [place] [address] Care Team Providers Care Sap Pi Developer Name Role Phone Enmanuel Gan MD Primary Care Provider [phone] Tg Houston MD Unavailable [phone] Guerrero Hunter DPT Unavailable + Guerrero Weiner MODELING AGENT Unavailable + Stephen Barth MD Unavailable [phone] Reason for Visit * Reason Comments Post-op Spine Surgery * Auth/Cert (Routine) Specialty Diagnoses / Procedures Referred By Contac t Referred To Contact Referral ID Status Reason Start Date Expiration Date Visits Re quested Visits Authorized [id number] 1 1 Encounter Details Date Type Department Care Team (Late st Contact Info) Description 02/18/2024 9:30 AM CDT Home Care Visit [facility] [address] [address] [address] [place] [address] Kindra Epps, PT PT HOME VISIT Social History Tobacco Use Types Packs/Day Years [...] materials from doctor or pharmacy Never 01/09/2024 [facility] Utilities Answer Date Recorded In the past [...] often do you attend chur ch or sabianism services? 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 Gender Identity Not on file Sexual Orientation Lesbian 05/24/2019 9: 06 AM CDT documented as of this encounter Last Filed Vital Signs Vital Sign Reading Time Taken Comments Blood Pressure 120/62 02/18/2024 9:59 AM CDT Pulse 71 02/18/2024 9:59 AM CDT Temperature 36 ??C (96.8 ??F) 02/18/2024 9:59 AM CDT Respiratory Rate 18 02/18/2024 9:59 AM CDT Oxygen Saturation 97% 02/18/2024 9:59 AM CDT Inhaled Oxygen Concentration - - Weight - - Height - - Body Mass Index - - documented in this encounter Plan of Treatment Not on file documented as of this encounter Visit Diagnoses Not on filedocumented in this encounter Home Health Visit - Care Plan Visit Details Visit Type -PT Home Visit Discipline -Physical Therapy Problems Problem Description Start Date Status Goals Interve ntions Homebound Status Disciplines: Skilled Disciplines Patient's homebound status 01/09/2024 Active 1 goal linked to scheduled/documen maritza intervention 1 goal intervention scheduled/documen maritza in this visit Monitor patient's vital signs every home health visit Disciplines: SN, PT, OT, BUSINESS SYSTEMS TECHNICIAN, TAPE FASTENER MACHINE OPERATOR, Skilled Disciplines Monitor patient's vital signs every home health visit. 01/09/2024 Active 1 goal linked to scheduled/documen maritza intervention 1 goal intervention scheduled/documen maritza in this visit Infection Prevention Disciplines: Skilled Disciplines Infection Prevention [...] goal intervention scheduled/documen maritza in this visit Goals Goal Associated Problem Outcome Goal Met? Visit Notes Patient receives care at the most appropriate care setting Description: Patient receives care at the most appropriate care setting. Homebound Status No Measure vital signs during every home health visit during episode of care Description: Home cottrell operator to measure vital signs during every home health visit during episode of care. Monitor patient's vital signs every home health visit No Verbalize signs of infection Description: Patient/caregiver will demonstrate knowledge of infection prevention strategies by verbalizing signs and symptoms of infection, by 01/23/2024. Infection Prevention No Demonstrate use of safety precautions Description: Patient/caregiver maintains safe home environment as evidenced by remaining free from injury and demonstrates use of safety precautions throughout episode of care. Safety concerns No Report that pain has been reduced or controlled Description: Patient/caregiver/family will verbalize satisfaction with the patients level of pain and symptom control. Pain No Interventions Intervention Associated Problem/Goal Status Variance Visit [...] care at the most appropriate care setting Scheduled Monitor Vital Signs Description: Monitor blood pressure, pulse, oxygen saturation, respirations, and temperature. Problem:Monitor patient's vital signs every home health visit Goal:Measure vital signs during every home health visit during episode of care Scheduled Educate Patient on Infection Prevention Description: Instructed [...] concerns Goal:Demonstrate use of safety precautions Scheduled Assess safety Description: Assess patient safety Problem:Safety concerns Goal:Demonstrate use of safety precautions Scheduled Instruct on pain management techniques Description: Instruct in pharmacologic and nonpharmacologic pain management techniques. Problem:Pain Goal:Report that pain has been reduced or controlled Scheduled documented in this encounter Care Teams Sap Pi Developer Relationship Specialty Start Date End Date Enmanuel Gan MD [address] [facility] [address] [place] [address] PCP - General Internal Medicine 04/26/20 Tg Houston MD [address] [facility] [address] [place] [address] Consulting Physician Cardiology 07/18/20 Guerrero Hunter DPT [address] [facility] [address] [facility] [place] [address] Physical Therapist Physical Therapy 11/08/20 Guerrero Weiner, MODELING AGENT [address] [facility] [address] [place] [address] Digital Asset Coordinator Physical Therapy 12/12/20 Stephen Barth MD [address] [facility] [address] [place] [address] Referring Physician Transplant 10/19/23 documented as of this encounter
--- OUTSIDE RECORDS SUMMARY | 2024-07-12 08:37 | XMS_ITS | Encounter Summary ---
Author Organization [facility] Address [address] [place] [address] Phone Care Team Providers Care Generating Station Mechanic Name Role Phone Enmanuel Gan MD Primary Care Provider [phone] Tg Houston MD Unavailable [phone] Guerrero Hunter DPT Unavailable [phone] Guerrero Weiner POLICE COMMUNICATIONS DISPATCHER Unavailable [phone] Stephen Barth MD Unavailable [phone] Reason for Visit * Reason Onset Date Comments Request For Order(s) 02/15/2024 Encounter Details Date Type Department Care Team (Late st Contact Info) Description 02/15/2024 Telephone [facility] Orthopaedic Surgery [facility] Advanced Medicine 6th [place] [address] [place] [address] Jeremy Michelle MD [address] [facility] [address] [place] [address] Request For Order(s) Social History Tobacco Use Types Packs/Day Years [...] materials from doctor or pharmacy Never 01/09/2024 [facility] Utilities Answer Date Recorded In the past 12 months has th e [employer], gas, oil, or water company threatened to shut off services in your home? No 01/07/2024 Social Connection and Isolat ion Panel [NHANES] Answer Date Recorded In a typical week, how many times do you talk on the phone with family, friends, or neighbors? More than three times a week 01/07/2024 How often do you get togethe r with friends or relatives? More than three times a week 01/07/2024 How often do you attend chur ch or moravian services? Never 01/07/2024 Do you belong to any clubs o r organizations such as congregation groups, unions, fraternal or athletic groups, or school groups? Yes 01/07/2024 How often do you attend meet ings of the clubs or organizations you belong to? More than 4 times per year 01/07/2024 Are you , , di vorced, , never , or living with a partner? 01/07/2024 AUDIT-C Answer Date Recorded Q1: How often [...] the money to buy more. Never true 01/07/20 24 Within the past 12 months, t he food you bought just didn't last and you didn't have money to get more. Never true 01/07/2024 PRAPARE - Transportation Answer Date Re corded [...] were you homeless or living in a skilled nursing (including now)? No 01/07/2024 Personal Safety Answer Date Recorded Have you ever been in or are you currently in a harmful physical or emotional relationship or is someone making you feel afraid or unsafe? Denies 01/06/2024 Comments No Sex and Gender Information Value Date Recorded Sex Assigned at Not on file Legal Sex Female 9:09 PM CERTIFIED HAND THERAPIST Gender Identity Not on file Sexual Orientation Lesbian 05/24/2019 9: 06 AM CDT documented as of this encounter Miscellaneous Notes * Telephone Encounter - Cyndie Byers RN - 02/15/2024 11:14 AM CDT Returned call to patient to discuss extending patient's PT until after her 3 month follow up with Dr. Michelle. This extension is okayed by and left message on voicemail. Unable to reach atthis time. Left voicemail message with contact information for call back. documented in this encounter Plan of Treatment Not on file documented as of this encounter Visit Diagnoses Not on filedocumented in this encounter Care Teams Generating Station Mechanic Relationship Specialty Start Date End Date Enmanuel Gan MD [address] [facility] [address] [place] [address] PCP - General Internal Medicine 04/26/20 Tg Houston MD [address] [place] [address] Consulting Physician Cardiology 07/18/20 Guerrero Hunter DPT [address] [facility] [address] [facility] [place] [address] Physical Therapist Physical Therapy 11/08/20 Guerrero Weiner, [facility] [address] [facility] [address] [place] [address] Agricultural Produce Washer Physical Therapy 12/12/20 Stephen Barth MD [address] [place] [address] Referring Physician Transplant 10/19/23 documented as of this encounter
--- OUTSIDE RECORDS SUMMARY | 2024-07-12 08:37 | XMS_ITS | Encounter Summary ---
Author Organization [facility] Address [address] [place] [address] Phone Care Team Providers Care Quality Control Auditor Name Role Phone Enmanuel Gan MD Primary Care Provider [phone] Tg Houston MD Unavailable [phone] Guerrero Hunter DPT Unavailable [phone] Guerrero Weiner WASHTUB WORKER HELPER Unavailable [phone] Stephen Barth MD Unavailable [phone] Reason for Referral * Consultation (Routine) - Pending Review Specialty Diagnoses / Procedures Referred By Contac t Referred To Contact Physical Therapy Diagnoses Lumbar radiculopathy Fusion of spine of lumbar region Jeremy Michelle MD [address] [facility] [place] [address] Phone: tel: fax: External Order Referral ID Status Reason Start Date Expiration Date Visits Requested Visits Authorized [id number] Pending Review Evaluate and Treat 02/23/2024 03/24/2025 24 24 Question Answer Location provided for therapy services is: Patient requested/Patient preferred Please select the performing region: External Order [171] # of visits: 24 Comments Patient: Macie Mondragonwin : 1945 Date: 02/23/24 Diagnosis: (M54.16) Lumbar radiculopathy (primary encounter diagnosis) Plan: XR Scoliosis 4 or 5 Views Frequency: per therapist Duration: per therapist Date of next doctor visit: to be determined For all PT reports that require a signature-please fax to [phone] For all other PT progress notes-please fax to [phone] Evaluate and Treat Instructions on what is good and bad for lumbar spine in a back pain patient Instructions on how to stay erect/vertical/lordotic/avoid flexing, bending over, being horizontal Aerobic exercise, conditioning, fitness Strengthen spinal extensors Strengthen arms and legs and core If precert is required please call [phone] Shorts or Sweats are suggested for physical therapy. MD Jeremy Bahena MD Department of Orthopedic Spine Surgery [facility] * Diagnostic Imaging (Routine) - Closed Specialty Diagnoses / Procedures Referred By Contac t Referred To Contact Diagnoses Lumbar radiculopathy Procedures XR Scoliosis 4 or 5 Views Jeremy Michelle MD [address] [facility] [address]6B[address], [place] [address] Phone: tel: fax: [facility] Referral ID Status Reason Start Date Expiration Date Visits Re quested Visits Authorized [id number] Closed 02/19/2024 03/20/2025 1 1 Reason for Visit * Reason Comments Follow-up Encounter Details Date Type Department Care Team (Late st Contact Info) Description 02/23/2024 8:30 AM CDT Office Visit [facility] Orthopaedic Surgery [address] [place] [address] 6th [place] [address] [place] [phone] Jeremy Michelle MD [address] [facility] 6A[address]6B[address] [place] [address] Lumbar radiculopathy (Primary Dx); Fusion of spine of lumbar region Social History Tobacco Use [...] materials from doctor or pharmacy Never 02/24/2024 [facility] Utilities Answer Date Recorded In the past 12 months has e [employer]), gas, oil, or water company threatened to [...] often do you attend chur ch or islam services? Never 02/22/2024 Do you belong to any clubs o r organizations such as oriental orthodox groups, unions, fraternal or athletic groups, [...] were you homeless or living in a snf (including now)? No 01/07/2024 Personal Safety Answer Date Recorded Have you ever been in or are you currently in a harmful physical or emotional relationship or is someone making you feel afraid or unsafe? Denies 01/06/2024 Comments No Sex and Gender Information Value Date Recorded Sex Assigned at Not on file Legal Sex Female 9:09 PM PHOTOSTAT OPERATOR Gender Identity Not on file Sexual Orientation Lesbian 05/24/2019 9: 06 AM CDT documented as of this encounter Last Filed Vital Signs Vital Sign Reading Time Taken Comments Blood Pressure - - Pulse - - Temperature - - Respiratory Rate - - Oxygen Saturation - - Inhaled Oxygen Concentration - - Weight 77.6 kg (171 lb) 02/23/2024 8:46 AM CDT Height 162.6 cm (5' 4 ) 02/23/2024 8:46 AM CDT Body Mass Index 29.35 02/23/2024 8:46 AM CDT documented in this encounter Patient Instructions * Patient Instructions* Cyndie Byers RN - 02/23/2024 8:30 AM CDT Thank you for your visit today we are pleased to be here to assist with your spine needs. Sincerely, Dr. Jeremy Michelle & Cyndie Byers RN Please contact Dr. Miguel Angel Agee's Nurse if you have any questions. For Mailing information: Attn: Jeremy Michelle/ Cyndie HANEY [facility] [address] [place] [address] [id number] [place] [address] Thoracic and lumbar fusion activity guidelines- 3 - 6 months after surgery Spinal fusion precautions: -No bending or twisting at the waist -No hip flexion more than 90 degrees or crossing the legs -No lifting more than 20lbs -No NSAIDs Activities and exercises: -All previously recommended exercises -Light/modified water aerobics (no swimming for exercise yet) -Treadmill on an incline, brisk walking pace -Easy hiking (no heavy backpacks) -Upper & lower extremity strength training with resistance bands (maintain precautions) or up to 20lb weights -Light/easy fishing Tips and advice: All of the above activities must be done with the spine precautions in mind -Add new activities gradually, no more than 1 per week -If it hurts, stop this activity and wait a few weeks before trying it again -You must use steps to get in/out of pools, no pool ladders -[place], more frequent periods of activity and exercise are better tolerated than one long period documented in this encounter Progress Notes * Jeremy Michelle MD - 02/23/2024 8:30 AM CDT Images from the original note were not included. Established Patient Visit Interim History Macie Briseno returns to our office today for follow up. Doing very well overall - remarkable difference in function she says - able to stand upright for long periods of time which she has not been able to do for a long period of time. Completed course of abx with ID and feels very good overall. Physical Examination Intact BL UE LE SILT and motor 5/5 Ambulates with excellent alignment overall Review of Plain Radiographs/Studies Imaging reviewed by me. No complications. Good alignment overall - markedly improved from preop. Nosign of complications. Impression/Diagnosis/Treatment Plan She is doing very well now status post the above. Marked improvement in symptoms and alignment overall. We will see her in another 3 months at her six-month follow-up and start her with some therapy for gait training and strengthening. All questions answered and patient agrees with the plan. - Plan for fu in 3 months at 6 month fu - Rx for PT for gait training / strengthening Jeremy Michelle MD PhD Elementary Teacher of Orthopaedic Ski Base TrimmerElementary Teacher of Neurological Surgery [facility] in [place], [place] Dry Wall Installations Mechanic done by [employer]; therefore, variances and inaccuracies may occur. I reviewed the patient problem list pertinent to the visit today, but the entire patient problem list was not reviewed today. documented in this encounter Plan of Treatment Scheduled Referrals Name Type Priority Associated Diagnoses Order Schedule Ambulatory referral order to Physical Therapy - Outpatient Referral Routine Lumbar radiculopathy Fusion of spine of lumbar region Expected: 02/23/2024 (Approximate), Expires: 02/22/2025 documented as of this encounter Results * XR Scoliosis 4 [...] in this encounter Visit Diagnoses Diagnosis Lumbar radiculopathy- Primary Thoracic or lumbosacral neuritis or radiculitis, unspecified Fusion of spine of lumbar region Lumbar radiculopathy Thoracic or lumbosacral neuritis or radiculitis, unspecified documented in this encounter Historical Medications * This list may reflect changes made after this encounter. sucralfate (Carafate) 1 gram tablet 2 tablets (2 g total) 08/20/2023 fluticasone propionate (FLONASE) 50 mcg/actuation nasal spray 1 spray(s), Nasal, daily, 1 each, [place], 0 08/20/2023 azelastine (ASTELIN) 137 mcg (0.1 %) nasal spray spray(s), 0 08/20/2023 added in this encounter Care Teams Quality Control Auditor Relationship Specialty Start Date End Date Enmanuel Gan MD [address] [place] [address] PCP - General Internal Medicine 04/26/20 Tg Houston MD [address] [place] [address] Consulting Physician Cardiology 07/18/20 Guerrero Hunter DPT [address] [facility] [address] [place] [address] Physical Therapist Physical Therapy 11/08/20 Guerrero Weiner, [facility] [address] [facility] [address] [place] [address] Newspaper Inserter Physical Therapy 12/12/20 Stephen Barth MD [address] [place] [address] Referring Physician Transplant 10/19/23 documented as of this encounter
--- OUTSIDE RECORDS SUMMARY | 2024-07-12 08:38 | XMS_ITS | Encounter Summary ---
Author Organization [facility] Address [address] [place] [address] Phone Care Team Providers Care Cotton Expert Name Role Phone Enmanuel Gan MD Primary Care Provider [phone] Tg Houston MD Unavailable [phone] Guerrero Hunter DPT Unavailable [phone] Guerrero Weiner HOT METAL CHARGER Unavailable [phone] Stephen Barth MD Unavailable [phone] Encounter Details Date Type Department Care Team (Late st Contact Info) Description 02/05/2024 Telephone [facility] Infectious Diseases [address] [place] [address] [address] [place] [address] Rika Neri, MED[facility] Social History Tobacco Use Types Packs/Day Years [...] materials from doctor or pharmacy Never 01/09/2024 [facility] Utilities Answer Date Recorded In the [...] attend chur ch or evangelical services? Never 01/07/2024 Do you belong to [...] in the past 12 m [facility], were you homeless or living in a mcc (including now)? No 01/07/2024 Personal Safety Answer Date Recorded Have you ever been in or are you currently in a harmful physical or emotional relationship or is someone making you feel afraid or unsafe? Denies 01/06/2024 Comments No Sex and Gender Information Value Date Recorded Sex Assigned at Not on file Legal Sex Female 9:09 PM WAFER CLEANER Gender Identity Not on file Sexual Orientation Lesbian 05/24/2019 9: 06 AM CDT documented as of this encounter Miscellaneous Notes * Telephone Encounter - Rika Neri RN - 02/05/2024 8:02 AM CDT Patient IV antibiotic therapy complete, PICC removed during clinic visit 02/04/2024, patient will continue oral antibiotics. documented in this encounter Plan of Treatment Not on file documented as of this encounter Visit Diagnoses Not on filedocumented in this encounter Care Teams Cotton Expert Relationship Specialty Start Date End Date Enmanuel Gan MD [address] [place] [address] PCP - General Internal Medicine 04/26/20 Tg Houston MD [address] [place] [address] Consulting Physician Cardiology 07/18/20 Guerrero Hutner DPT [address] [facility] [address] [place], [place] [id number] Physical Therapist Physical Therapy 11/08/20 Guerrero Weiner, HOT METAL CHARGER [address] [facility] [address] [place], [place] [id number] Metal Machine Setter Physical Therapy 12/12/20 Stephen Barth MD [address] [facility] [address] [place] [address] Referring Physician Transplant 10/19/23 documented as of this encounter
--- OUTSIDE RECORDS SUMMARY | 2024-07-12 08:38 | XMS_ITS | Encounter Summary ---
Author Organization [facility] Address [address] [place] [address] Care Team Providers Care Control Manager Name Role Phone Enmanuel Gan MD Primary Care Provider [phone] Tg Houston MD Unavailable [phone] Guerrero Hunter DPT Unavailable + Guerrero Weiner TICKET WORKER Unavailable + Stephen Barth MD Unavailable [phone] Reason for Visit * Reason Comments Back Pain * Auth/Cert (Routine) Specialty Diagnoses / Procedures Referred By Contac t Referred To Contact Referral ID Status Reason Start Date Expiration Date Visits Re quested Visits Authorized [id number] 1 1 Encounter Details Date Type Department Care Team (Late st Contact Info) Description 02/08/2024 9:30 AM CDT Home Care Visit [facility] [address] [address] [address] [place] [address] Kindra Epps, PT PT HOME VISIT Social [...] materials from doctor or pharmacy Never 01/09/2024 [facility] Utilities Answer Date Recorded In the [...] often do you attend chur ch or christian services? Never 01/07/2024 Do you belong to any clubs o r organizations such as cheondoism groups, unions, fraternal or athletic groups, or [...] any time in the past 12 m [facility], were you homeless or living in a longterm (including now)? No 01/07/2024 Personal Safety Answer Date Recorded Have you ever been in or are you currently in a harmful physical or emotional relationship or is someone making you feel afraid or unsafe? Denies 01/06/2024 Comments No Sex and Gender Information Value Date Recorded Sex Assigned at Not on file Legal Sex Female 9:09 PM DESK OPERATOR Gender Identity Not on file Sexual Orientation Lesbian 05/24/2019 9: 06 AM CDT documented as of this encounter Last Filed Vital Signs Vital Sign Reading Time Taken Comments Blood Pressure 124/68 02/08/2024 12:00 AM CDT Pulse 68 02/08/2024 12:00 AM CDT Temperature 36.4 ??C (97.5 ??F) 02/08/2024 12:00 AM C DT Respiratory Rate 18 02/08/2024 12:00 AM CDT Oxygen Saturation 98% 02/08/2024 12:00 AM CDT Inhaled Oxygen Concentration - - Weight - - Height - - Body Mass Index - - documented in this encounter Miscellaneous Notes * Home Health Plan for Next Visit - Kindra Epps, PT - 02/08/2024 9:52 AM CDT Reason for today's visit: balance impairment, weakness Discuss plan of care with patient Discharge planning: will continue PT POC Plan for next visit: will advance HEP including step ups documented in this encounter Plan of Treatment [...] home health visit Disciplines: SN, PT, OT, PRESS SET UP, DIRECTOR OF SOCIAL WORK, Skilled Disciplines Monitor patient's vital signs every [...] visit during episode of care Description: Home santa's helper to measure vital signs during every home [...] Scheduled documented in this encounter Care Teams Control Manager Relationship Specialty Start Date End Date Enmanuel Gan MD [address] [facility] [address] [place] [address] PCP - General Internal Medicine 04/26/20 Tg Houston MD [address] [facility] [address] [place] [address] Consulting Physician Cardiology 07/18/20 Guerrero Hunter DPT [address] [facility] [address] [place] [address] Physical Therapist Physical Therapy 11/08/20 Guerrero Weiner, TICKET WORKER [address] [facility] [address] [place], [place] [id number] [place] Physical Therapy 12/12/20 Stephen Barth MD [address] [facility] [address] [place] [address] Referring Physician Transplant 10/19/23 documented as of this encounter
--- OUTSIDE RECORDS SUMMARY | 2024-07-12 08:38 | XMS_ITS | Encounter Summary ---
Author Organization [facility] Healthcare Address [address] [place] [address] Care Team Providers Care Residential Housekeeper Name Role Phone Enmanuel Gan MD Primary Care Provider [phone] Tg Houston MD Unavailable [phone] Guerrero Hunter DPT Unavailable + Guerrero Weiner ASPHALT SPREADER Unavailable + Stephen Barth MD Unavailable [phone] Encounter Details Date Type Department Care Team (Latest Contact Info) Description 02/02/2024 2:55 PM CDT - 02/02/2024 11:59 PM CDT Hospital Encounter [address] [id number] Discharge Disposition: Discharge to home or self [...] materials from doctor or pharmacy Never 01/09/2024 [facility] Utilities Answer Date [...] often do you attend chur ch or gnosticism services? Never 01/07/2024 Do you belong to any clubs o r organizations such as buddhist groups, unions, fraternal or athletic groups, or [...] time in the past 12 m [facility], were you homeless or living in a fpc (including now)? No 01/07/2024 Personal Safety Answer Date Recorded Have you ever been in or are you currently in a harmful physical or emotional relationship or is someone making you feel afraid or unsafe? Denies 01/06/2024 Comments No Sex and Gender Information Value Date Recorded Sex Assigned at Not on file Legal Sex Female 9:09 PM MARINE SPECIALIST Gender Identity Not on file Sexual [...] spray 1 spray(s), Nasal, daily, 1 each, [place], 0 08/20/2023 magnesium citrate and oxide (magnesium [...] tablet 2 tablets (2 g total) 08/20/2023 sodium chloride 0.9% injectionIndicatio ns:PICC line maintenence Infuse 10 mL into a venous catheter as needed for line care. Indications: PICC line maintenence 4 alendronate (FOSAMAX) 70 mg tabletIndications: Post-Menopausal Osteoporosis Take 70 mg by mouth every 7 days. On Thursday Indications: decreased bone mass following menopause 4 cefTRIAXone (ROCEPHIN) syringeIndications :Bone/Joint Infection [The details of the medication are not available because there are pending changes by a home health clinician.] 01/09/2024 4 heparin sod,porcine/0.9 % NaCl (HEPARIN FLUSH IV)Indications:PIC C line maintence Infuse 5 mL into a venous catheter as needed (PICC line maintenence). 10 Units/ML Indications: PICC line maintence 4 metoprolol tartrate (LOPRESSOR) 25 mg immediate [...] Procedure Name Priority Date/Time Associated Diagnosis Comments EGFR Routine 02/02/2024 2:55 PM CDT DIFFERENTIAL AUTO Routine 02/02/2024 2:5 5 PM CDT CBC WITH AUTO DIFFERENTIAL Routine 02/02/2024 2:55 PM CDT COMPREHENSIVE METABOLIC PANEL Routine 02/02/2024 2:55 PM CDT documented in this encounter Results * (ABNORMAL) eGFR (02/02/2024 2:55 PM CDT) eGFR 57(L) >=60 mL/min/1. 73 m2 Comment: Interpretive Data Reference Interval Normal ?>/= 90 mL/min/1.73m2 Mildly decreased* ? 60 - 89 mL/min/1.73m2 Mildly to moderately decreased ?45 - 59 mL/min/1.73m2 Moderately to severely decreased ??30 - 44 mL/min/1.73m2 Severely decreased ?15 - 29 mL/min/1.73m2 Kidney Failure ?< 15 ??mL/min/1.73m2 *Relative to young adult level Estimated glomerular filtration rate is determined by the 2020 CKD-EPI equation recommended by the National Kidney Foundation (A Unifying Approach to GFR Estimation: Recommendations of the NKF-ASK Task Force on Reassessing the Inclusion of Race in Diagnosing Kidney Disease, JASN 2020). The CKD-EPI equation should not be used for patients with unstable renal function and has not been validated in children and those over 70. Current interpretive data was last reviewed 2021. Blood 02/02/2024 2:55 PM CDT 02/02/2024 6:03 PM CDT us Notinfile Unknown LAB BLOOD ORDERABLES Final Res ult [facility] Department [place] [address] * Differential, auto (02/02/2024 2:55 PM CDT) Neutrophil abs 4.3 1.5 - 6.5 K/cumm Imm gran abs 0.0 0.0 - 0.1 K/cumm [facility] Lymphocyte abs 1.5 0.8 - 3.3 K/cumm [facility] Monocyte abs 0.4 0.2 - 0.8 K/cumm [facility] Eosinophil abs 0.2 0.0 - 0.5 K/cumm [facility] Basophil abs 0.1 0.0 - 0.1 K/cumm [facility] Neutrophil pct 65.4 % [facility] Comment: Interpretive Data Percent cell count reference ranges are not reported, since discordance with absolute values may lead to misinterpretation of CBC data. Current Interpretive Data was last revised on 2017. Imm gran pct 0.2 % [facility] Comment: Interpretive Data Percent cell count reference ranges are not reported, since discordance with absolute values may lead to misinterpretation of CBC data. Current Interpretive Data was last revised on 2017. Lymphocyte pct 23.4 % [facility] Comment: Interpretive Data Percent cell count reference ranges are not reported, since discordance with absolute values may lead to misinterpretation of CBC data. Current Interpretive Data was last revised on 2017. Monocyte pct 6.6 % [facility] Comment: Interpretive Data Percent cell count reference ranges are not reported, since discordance with absolute values may lead to misinterpretation of CBC data. Current Interpretive Data was last revised on 2017. Eosinophil pct 3.5 % [facility] Comment: Interpretive Data Percent cell count reference ranges are not reported, since discordance with absolute values may lead to misinterpretation of CBC data. Current Interpretive Data was last revised on 2017. Basophil pct 0.9 % [facility] Comment: Interpretive Data Percent cell count reference ranges are not reported, since discordance with absolute values may lead to misinterpretation of CBC data. Current Interpretive Data was last revised on 2017. Blood 02/02/2024 2:55 PM CDT 02/02/2024 5:49 PM CDT us Notinfile Unknown LAB BLOOD ORDERABLES Final Res ult [facility] Department [place] [address] * (ABNORMAL) CBC with auto differential (02/02/2024 2:55 PM CDT) WBC 6.5 3.8 - 9.9 K/cumm Hgb 12.1 11.9 - 15.5 g/dL [facility] Hct 38.2 35.6 - 45.5 % [facility] Plt 338 150 - 400 K/cumm [facility] MPV 10.4 9.1 - 12.3 fL [facility] RBC 4.39 3.90 - 5.20 M/cumm [facility] MCV 87.0 81.3 - 96.4 fL [facility] MCH 27.6 27.1 - 33.3 pg [facility] MCHC 31.7(L) 32.3 - 35.7 g/dL [facility] RDW CV 14.1 11.1 - 14.9 % [facility] RDW SD 45.4 35.7 - 48.1 fL [facility] NRBC abs 0.00 0.00 - 0.01 K/cumm [facility] Blood 02/02/2024 2:55 PM CDT 02/02/2024 5:49 PM CDT us Notinfile Unknown LAB BLOOD ORDERABLES Final Res ult Performing Organization Address City/[facility]/ZIP Co de Phone Number [facility] Department [place] [address] * Comprehensive metabolic panel (02/02/2024 2:55 PM CDT) Sodium 140 135 - 145 mmol/L Potassium, pl 4.2 3.3 - 4.9 mmol/L [facility] Chloride 99 97 - 110 mmol/L [facility] CO2 29 22 - 32 mmol/L [facility] Anion gap 12 2 - 15 mmol/L [facility] BUN 20 6 - 25 mg/dL [facility] Creatinine 1.01 0.60 - 1.10 mg/dL [facility] Glucose 74 70 - 199 mg/dL [facility] Comment: Interpretive Data Fasting glucose >/= 126 mg/dl is diagnostic for diabetes. ?? Fasting is defined as no caloric intake for at least 8 hours. Fasting glucose between 100 mg/dl to 125 mg/dl is diagnostic of prediabetes. In a patient with classic symptoms of hyperglycemia or hyperglycemic crisis, a random glucose >/= 200 mg/dl is diagnostic for diabetes. In the absence of unequivocal hyperglycemia, results should be confirmed by repeat testing. The classification and Diagnosis of Diabetes Diabetes Care 2021; 46: S19-S40. Current interpretive data was last revised 2022. Calcium 9.6 8.5 - 10.3 mg/dL [facility] Bilirubin, total 0.3 0.1 - 1.2 mg/dL [facility] Protein, pl 7.2 6.5 - 8.5 g/dL [facility] Albumin 4.0 3.5 - 5.0 g/dL [facility] Alk phos 113 40 - 130 Units/L [facility] ALT 26 7 - 45 Units/L [facility] AST 31 10 - 45 Units/L [facility] Blood 02/02/2024 2:55 PM CDT 02/02/2024 5:49 PM CDT us Notinfile Unknown LAB BLOOD ORDERABLES Final Res ult [facility] Department [place] [address] documented in this encounter Visit Diagnoses Not on filedocumented in this encounter Care Teams Residential Housekeeper Relationship Specialty Start Date End Date Enmanuel Gan MD [address] [place] [address] PCP - General Internal Medicine 04/26/20 Tg Houston MD [address] [place] [address] Consulting Physician Cardiology 07/18/20 Guerrero Hunter DPT [address] [facility] [address] [place] [address] Physical Therapist Physical Therapy 11/08/20 Guerrero Weiner, ASPHALT SPREADER [address] [facility] [address] [place] [address] Cage Manager Physical Therapy 12/12/20 Stephen Barth MD [address] [place] [address] Referring Physician Transplant 10/19/23 documented as of this encounter
--- OUTSIDE RECORDS SUMMARY | 2024-07-12 08:38 | XMS_ITS | Encounter Summary ---
Author Organization [facility] Address [address] [place] [address] Phone Care Team Providers Care Medical Office Representative Name Role Phone Enmanuel Gan MD Primary Care Provider [phone] Tg Houston MD Unavailable [phone] Guerrero Hunter DPT Unavailable [phone] Guerrero Weiner MOTOR OPERATOR Unavailable [phone] Stephen Barth MD Unavailable [phone] Encounter Details Date Type Department Care Team (Late st Contact Info) Description 02/10/2024 Orders Only [facility] Infectious Diseases [address] [place] [address] [address] [place] [address] Rose Marie Holloway NP [address] [place] [address] Social History Tobacco Use Types Packs/Day Years [...] materials from doctor or pharmacy Never 01/09/[address] [facility] Utilities Answer Date Recorded In [...] often do you attend chur ch or sikhism services? Never 01/07/2024 Do you belong to any clubs o r organizations such as shinto groups, unions, fraternal or athletic groups, or [...] any time in the past 12 m [facility], were you homeless or living in a [...] on file Legal Sex Female 9:09 PM LATEX SPOOLER Gender Identity Not on file Sexual Orientation Lesbian 05/24/2019 9: 06 AM CDT documented as of this encounter Ordered Prescriptions Prescription Sig Dispense Quantity Refills Last Filled Start Date End Date doxycycline (VIBRAMYCIN) 100 mg capsule Take 1 tablet/caps ule (100 mg total) by mouth every 12 (twelve) hours for 7 days 14 tablet/capsule 02/10/2024 02/17/2024 documented in this encounter Plan of Treatment Not on file documented as of this encounter Visit Diagnoses Not on filedocumented in this encounter Discontinued Medications Medication Sig Discontinue Reason Start Date End Da te cefadroxil (DURICEF) 500 mg capsule Take 2 capsules (1,000 mg total) by mouth 2 (two) times a day for 14 days Allergic response 02/04/2024 02/10/2024 documented as of this encounter Care Teams Medical Office Representative Relationship Specialty Start Date End Date Enmanuel Gan MD [address] [facility] [address] [place] [address] PCP - General Internal Medicine 04/26/20 Tg Houston MD [address] [place] [address] Consulting Physician Cardiology 07/18/20 Guerrero Hunter, PAULINOT [address] [facility] [address] [place] [address] Physical Therapist Physical Therapy 11/08/20 Guerrero Weiner, [facility] [address] [facility] [address] [place], [place] [id number] Progress Man Physical Therapy 12/12/20 Stephen Barth MD [address] [place] [address] Referring Physician Transplant 10/19/23 documented as of this encounter
--- OUTSIDE RECORDS SUMMARY | 2024-07-12 08:38 | XMS_ITS | Encounter Summary ---
Author Organization [facility] Address [address] [place] [address] Phone Care Team Providers Care Grocery Department Manager Name Role Phone Enmanuel Gan MD Primary Care Provider [phone] Tg Houston MD Unavailable [phone] Guerrero Hunter DPT Unavailable [phone] Guerrero Weiner SERVICE UNIT OPERATOR OIL WELL Unavailable + Stephen Barth MD Unavailable [phone] Encounter Details Date Type Department Care Team (Late st Contact Info) Description 02/12/2024 Telephone [facility] Infectious Diseases [address] [place] [address] [address] [place] [address] Belén Noland Social History Tobacco Use Types Packs/Day Years [...] materials from doctor or pharmacy Never 02/24/2024 [facility] Utilities Answer Date Recorded In the [...] often do you attend chur ch or samaritan services? 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 She did not have a rash yesterday. She is noting thesame areas for a rash. She has taken benadryl and a dose of doxy. She is going to continue at this time and aware to monitor for worsening symptoms. She said she has taken doxy previously without anyissues. She will call if anything worsens and or go to the ER. * Telephone Encounter - Belén Noland - 02/12/2024 9:57 AM CDT changed medicine because she was breaking out in hives and know her new medicine is also making her break out in hives Patient number [id number] documented in this encounter Plan of Treatment Not on file documented as of this encounter Visit Diagnoses Not on filedocumented in this encounter Care Teams Grocery Department Manager Relationship Specialty Start Date End Date Enmanuel Gan MD [address] [facility] [address] [place] [address] PCP - General Internal Medicine 04/26/20 Tg Houston MD [address] [place] [address] Consulting Physician Cardiology 07/18/20 Guerrero Hunter DPT [address] [facility] [address] [address] Physical Therapist Physical Therapy 11/08/20 Guerrero Weiner, [facility] [address] [address] Bilingual Operator Physical Therapy 12/12/20 Stephen Barth MD [address] [place] [address] Referring Physician Transplant 10/19/23 documented as of this encounter
--- OUTSIDE RECORDS SUMMARY | 2024-07-12 08:38 | XMS_ITS | Encounter Summary ---
Author Organization [facility] Healthcare Address [address] [place] [address] Care Team Providers Care Electrical And Instrumentation Manager Name Role Phone Enmanuel Gan MD Primary Care Provider [phone] Tg Houston MD Unavailable [phone] Guerrero Hunter DPT Unavailable + Guerrero Weiner GOLF COURSE DESIGNER Unavailable [phone] Stephen Barth MD Unavailable [phone] Reason for Visit * Reason Comments Spinal Surgery * Auth/Cert (Routine) Specialty Diagnoses / Procedures Referred By Contac t Referred To Contact Referral ID Status Reason Start Date Expiration Date Visits Re quested Visits Authorized [id number] 1 1 Encounter Details Date Type Department Care Team (Late st Contact Info) Description 02/15/2024 9:30 AM CDT Home Care Visit [facility] Health [address] [address] [address] [place] [address] Kindra Epps, PT PT HOME VISIT Social [...] materials from doctor or pharmacy Never 01/09/2024 [facility] Utilities Answer Date Recorded In [...] often do you attend chur ch or gnosticist services? Never 01/07/2024 Do you belong to any clubs o r organizations such as methodist groups, unions, fraternal or athletic groups, or [...] any time in the past 12 m [facility], were you homeless or living in a [...] on file Legal Sex Female 9:09 PM AUDIO VISUAL AIDS DIRECTOR Gender Identity Not on file Sexual Orientation Lesbian 05/24/2019 9: 06 AM CDT documented as of this encounter Last Filed Vital Signs Vital Sign Reading Time Taken Comments Blood Pressure 118/60 02/15/2024 12:00 AM CDT Pulse 61 02/15/2024 12:00 AM CDT Temperature 36.1 ??C (97 ??F) 02/15/2024 12:00 AM CDT Respiratory Rate 18 02/15/2024 12:00 AM CDT Oxygen Saturation 98% 02/15/2024 12:00 AM CDT Inhaled Oxygen Concentration - - Weight - - Height - - Body Mass Index - - documented in this encounter Miscellaneous Notes * Home Health Plan for Next Visit - Kindra Epps, PT - 02/15/2024 9:57 AM CDT Reason for today's visit: weakness Discuss plan of care with patient Discharge planning: will continue PT POC Plan for next visit: advance HEP documented in this encounter Plan of Treatment [...] home health visit Disciplines: SN, PT, OT, AUTOMOTIVE POWER ELECTRONICS ENGINEER, STREET CLEANER, Skilled Disciplines Monitor patient's vital signs every [...] to spinal fusion and revision 01/12/2024 Active - 3 problem interventions scheduled/documen maritza in this visit Goals Goal Associated Problem Outcome Goal Met? Visit Notes Patient receives care at the most appropriate care setting Description: Patient receives care at the most appropriate care setting. Homebound Status No Measure vital signs during every home health visit during episode of care Description: Home hoeing row boss to measure vital signs during every home [...] and perform gait/stair training. Problem:PT Orthopedic Completed Cryotherapy Description: Use of cold for pain relief. Instruct patient/caregiver in use of cold to x 15-20 minutes, with 1 hour off between applications. Problem:PT Orthopedic Completed documented in this encounter Care Teams Electrical And Instrumentation Manager Relationship Specialty Start Date End Date Enmanuel Gan MD [address] MEDICINE [place], [place] [id number] PCP - General Internal Medicine 04/26/20 Tg Houston MD [address] [place] [address] Consulting Physician Cardiology 07/18/20 Guerrero Hunter DPT [address] [facility] [address] [facility] [place] [address] Physical Therapist Physical Therapy 11/08/20 Guerrero Weiner, [facility] [address] [place] [address] Glass Beveler Physical Therapy 12/12/20 Stephen Barth MD [address] [place] [address] Referring Physician Transplant 10/19/23 documented as of this encounter
--- OUTSIDE RECORDS SUMMARY | 2024-07-12 08:38 | XMS_ITS | Encounter Summary ---
Author Organization [facility] Healthcare Address [address] [place] [address] Care Team Providers Care Farm Boss Name Role Phone Enmanuel Gan MD Primary Care Provider [phone] Tg Houston MD Unavailable [phone] Guerrero Hunter DPT Unavailable + Guerrero Weiner PLASTER MOLDER Unavailable + Stephen Barth MD Unavailable [phone] Reason for Visit * Auth/Cert (Routine) Specialty Diagnoses / Procedures Referred By Contwolfgang t Referred To Contact Referral ID Status Reason Start Date Expiration Date Visits Re quested Visits Authorized [id number] 1 1 Encounter Details Date Type Department Care Team (Late st Contact Info) Description 02/03/2024 Home Care Visit [facility] Health [address] [address] [address] [place] [address] Malgorzata Jennings, RN TELEPHONE ENCOUNTER Social History Tobacco Use Types Packs/Day Years [...] often do you attend chur ch or anglican services? Never 01/07/2024 Do you belong to any clubs o r organizations such as hindu groups, unions, fraternal or athletic groups, or [...] any time in the past 12 m [facility], were you homeless or living [...] on file Legal Sex Female 9:09 PM DIRECTOR OF SERVICES Gender Identity Not on file Sexual Orientation Lesbian 05/24/2019 9: 06 AM CDT documented as of this encounter Plan of Treatment Not on file documented as of this encounter Visit Diagnoses Not on filedocumented in this encounter Care Teams Farm Boss Relationship Specialty Start Date End Date Enmanuel Gan MD [address] [facility] [address] [place] [address] PCP - General Internal Medicine 04/26/20 Tg Houston MD [address] [place] [address] Consulting Physician Cardiology 07/18/20 Guerrero Hunter DPT [address] [facility] [address] [place] [address] Physical Therapist Physical Therapy 11/08/20 Guerrero Weiner, PLASTER MOLDER [address] [facility] [address] [place] [address] Security Systems Manager Physical Therapy 12/12/20 Stephen Barth MD [address] [facility] [address] [place] [address] Referring Physician Transplant 10/19/23 documented as of this encounter
--- OUTSIDE RECORDS SUMMARY | 2024-07-12 08:38 | XMS_ITS | Encounter Summary ---
Author Organization [facility] Healthcare Address [address] [place] [address] Care Team Providers Care Stave Bolt Equalizer Name Role Phone Enmanuel Gan MD Primary Care Provider [phone] Tg Houston MD Unavailable [phone] Guerrero Hunter DPT Unavailable + Guerrero Weiner TEXTILE MACHINE MAINTENANCE MECHANIC Unavailable +[phone] Stephen Barth MD Unavailable [phone] Reason for Visit * Auth/Cert (Routine) Specialty Diagnoses / Procedures Referred By Contwolfgang t Referred To Contact Referral ID Status Reason Start Date Expiration Date Visits Re quested Visits Authorized [id number] 1 1 Encounter Details Date Type Department Care Team (Latest Contact Info) Description 02/10/2024 1:30 PM CDT Home Care Visit [facility] [address] [address] [address] [place] [address] Margi Coelho SN DISCIPLINE DISCHARGE Social History Tobacco Use Types Packs/Day [...] materials from doctor or pharmacy Never 01/09/2024 [facility] Utilities Answer Date Recorded In the [...] often do you attend chur ch or mormonism services? 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 Gender Identity Not on file Sexual Orientation Lesbian 05/24/2019 9: 06 AM CDT documented as of this encounter Last Filed Vital Signs Vital Sign Reading Time Taken Comments Blood Pressure 122/68 02/10/2024 1:02 PM CDT Pulse 60 02/10/2024 1:02 PM CDT Temperature 36.5 ??C (97.7 ??F) 02/10/2024 1:02 PM CD T Respiratory Rate 18 02/10/2024 1:02 PM CDT Oxygen Saturation 98% 02/10/2024 1:02 PM CDT Inhaled Oxygen Concentration - - Weight - - Height - - Body Mass Index - - documented in this encounter Miscellaneous Notes * Home Health Visit Narrative - Margi Coelho - 02/10/2024 1:28 PM CDT Patient aware of nursing discharge this date. Patient no longer has PICC line, removed at last appointment with infectious desmounae. Instructed to keep all follow up appointments and notify MD with any new questions or concerns. Patient to start on new oral antibiotic of doxycyline. Reviewed mediations with patient. documented in this encounter Plan of Treatment Not on file documented as of this encounter Visit Diagnoses Not on filedocumented in this encounter Home Health Visit - Care Plan Visit Details Visit Type -SN Discipline Helga engle Discipline -Nursing Home Problems Problem Description Start Date Status Goals Interventions Homebound Status Disciplines: Skilled Disciplines Patient's homebound status 01/09/2024 Active 1 goal linked to scheduled/docume nted intervention 1 goal intervention scheduled/documen maritza in this visit Monitor patient's vital signs every home health visit Disciplines: SN, PT, OT, CANDY POLISHER, BARREL RIFLER HOOK, Skilled Disciplines Monitor patient's vital signs every home health visit. 01/09/2024 Active 1 goal linked to scheduled/docume nted intervention 1 goal intervention scheduled/documen maritza in this visit Collect Specimen/Lab Draw Disciplines: Nursing Home Management of specimen samples, including lab draws, stool, urine, sputum & wound cultures 01/13/2024 Resolved on 02/10/2024 1 goal linked to scheduled/docume nted intervention 1 problem intervention scheduled/documen maritza in this visit Infection Prevention Disciplines: Skilled Disciplines Infection Prevention 01/09/2024 Active 1 goal linked to scheduled/docume nted intervention 2 goal interventions scheduled/documen maritza in this visit Safety concerns Disciplines: Skilled Disciplines Alteration in safety 01/09/2024 Active 1 goal linked to scheduled/docume nted intervention 2 goal interventions scheduled/documen maritza in this visit Pain Disciplines: Core Disciplines Alteration in comfort 01/09/2024 Active 1 goal linked to scheduled/docume nted intervention 1 goal intervention scheduled/documen maritza in this visit Wound Education and Management Disciplines: Core Disciplines Knowledge deficit related to wound management and risk of infection. 01/09/2024 Resolved on 02/10/2024 1 goal linked to scheduled/docume nted intervention Medications Disciplines: Nursing Home Management of IV Medications 01/09/2024 Active 1 goal linked to scheduled/docume nted intervention 2 problem interventions scheduled/documen maritza in this visit Safety concerns Disciplines: Nursing Home Safety needs related to infusion administration 01/09/2024 Active - 1 problem intervention scheduled/documen maritza in this visit IV Therapy-Managem ent, Education, and Maintenance Disciplines: Nursing Home IV Management, education, and maintenance for home IV therapy. 01/09/2024 Resolved on 02/10/2024 1 goal linked to scheduled/docume nted intervention 2 problem interventions scheduled/documen maritza in this visit Goals Goal Associated Problem Outcome Goal Met? Visit Notes Patient receives care at the most appropriate care setting Description: Patient receives care at the most appropriate care setting. Homebound Status No Measure vital signs during every home health visit during episode of care Description: Home geodetic surveyor technologist to measure vital signs during every home health visit during episode of care. Monitor patient's vital signs every home health visit No Collect Specimen/Lab Draw Description: Collect specimen / draw labs as ordered Collect Specimen/Lab Draw Met Yes Verbalize signs of infection Description: [...] level of pain and symptom control. Pain Progressing No Knowledgeable of Wound Management Description: Patient/caregiver will be knowledgeable on management of wound and when to seek medical attention as evidenced by progressive wound healing and patient/caregiver ability to verbalize signs and symptoms to report to physician or Home Health Agency. Patient will remain free of infection and able to recognize signs of infection as long as alteration in skin integrity exists or until patient is discharged from home health services. Wound Education and Management Met Yes Understand infusion medication regimen Description: Patient/caregiver will verbalize understanding of infusion medication regimen by 01/16/2024. Medications Met Yes Safely perform IV administration and fios line installer Description: Patient/caregiver will be able to verbalize and demonstrate ability to safely administer IV medication and flushes while IV line is in place. IV line will be maintained with no signs or symptoms of infection throughout treatment. IV Therapy-Management, Education, and Maintenance Met Yes Interventions Intervention Associated Problem/Goal Status [...] health visit during episode of care Completed Monitored blood pressure, pulse, oxygen saturation, respirations. No abnormal findings. Collect Specimen/Lab Draw Description: Lab Draw: SN to draw labs CMP/CBC with diff. weekly beginning on 01/23/2024 via PICC (if unable to obtain via line may attempt venipuncture), Results to Padmini Claudio MICA MACHINE OPERATOR at [phone] Dx M46.26 Problem:Collect Specimen/Lab Draw Completed no longer needing lab draws. Educate Patient on Infection Prevention Description: Instructed [...] Problem:Infection Prevention Goal:Verbalize signs of infection Scheduled Assess safety Description: Assess patient safety Problem:Safety concerns Goal:Demonstrate use of safety precautions Completed No issues noted Instruct Fall Prevention Description: Instruct patient/caregiver in methods to prevent falls Problem:Safety concerns Goal:Demonstrate use of safety precautions Scheduled Instruct on pain management techniques Description: Instruct in pharmacologic and nonpharmacologic pain management techniques. Problem:Pain Goal:Report that pain has been reduced or controlled Scheduled Instruct on Medication Management Description: Instruct patient/caregiver in medication administration, purpose, dosages, preparation, scheduling, side effects, food/drug interactions, storage, drug allergies, and potential complications. Problem:Medications Completed Good understanding of all meds IV Infusion Description: Instruct patient/caregiver on IV Rocephin. Problem:Medications Completed no longer receiving iv antibiotics Instruct on IV complications Description: Instruct patient/caregiver on how to manage breaks in line, signs/symptoms of complications, who to contact for complications and how to contact the nurse, MD and infusion service Problem:Safety concerns Completed no longer has a picc line PICC Line Description: PICC Line with one Lumen. Change dressing weekly and PRN if lifted/detached on any border edge or within transparent portion of dressing; visibly soiled or presence of moisture, drainage, or blood under dressing. Clean insertion site with chlorhexidine, secure with Stat-lock, cover with transparent dressing. Instruct patient/caregiver to use SASH method for flushing line; using 10mL normal saline before and after antibiotic, administer Heparin (10 units/mL) 5mL last. Skilled Nurse to replace needleless access device, extension tubing, and disinfecting cap weekly during dressing change. Skilled Nurse to measure line migration and arm circumference at start of care and weekly with dressing change. Instruct patient/caregiver to assess insertion site every 4 hours, while awake, signs of complications and to report any complications, signs/symptoms of infection, or altered dressing integrity immediately. Instruct patient to not allow blood pressures nor phlebotomy on PICC line arm. Problem:IV Therapy-Management, Education, and Maintenance Completed No longer has a picc line IV Management and Education Description: Instruct patient/caregiver how to prepare/gather/inspect supplies and infusion prior to use, and how to obtain additional supplies. Instruct patient/caregiver on how to properly administer and disconnect medication, how to administer normal saline/heparin flushes, and waste disposal. Instruct patient/caregiver to monitor for signs and symptoms of adverse medication reaction such as: rash, shortness of breath, tingling, numbness, restlessness, nausea and vomiting; report any s/s to SN or physician. Instruct patient to contact home health agency if line is not functioning properly. Instruct patient/caregiver on infection prevention: including proper hand hygiene and use of gloves, equipment, cleaning IV connections with alcohol wipe, then allowing to dry before attaching any syringe/tubing, place disinfecting cap on lumen/extension tubing when not in use. If transparent dressing is occlusive patient may shower, instruct patient to cover dressing. Instruct patient/caregiver on signs of complications: Evidence of dislodgement, redness, tenderness, swelling, leaking/drainage, pain, numbness or tingling in extremity on side of access device - to notify home health nurse or physician for any signs and symptoms of complications. Problem:IV Therapy-Management, Education, and Maintenance Completed No longer has a picc line documented in this encounter Care Teams Stave Bolt Equalizer Relationship Specialty Start Date End Date Enmanuel Gan MD [address] [place] [address] PCP - General Internal Medicine 04/26/20 Tg Houston MD [address] [place] [address] Consulting Physician Cardiology 07/18/20 Guerrero Hunter DPT [address] [facility] [address] [place] [address] Physical Therapist Physical Therapy 11/08/20 Guerrero Weiner, [facility] [address] [facility] [address] [place] [address] Certified Hand Therapist Physical Therapy 12/12/20 Stephen Barth MD [address] [place] [address] Referring Physician Transplant 10/19/23 documented as of this encounter
--- OUTSIDE RECORDS SUMMARY | 2024-07-12 08:38 | XMS_ITS | Encounter Summary ---
Author Organization [facility] Address [address] [place] [address] Phone Care Team Providers Care Pad Machine Offbearer Name Role Phone Enmanuel Gan MD Primary Care Provider [phone] Tg Houston MD Unavailable [phone] Guerrero Hunter DPT Unavailable +[phone] Guerrero Weiner MOBILE SOLUTIONS ARCHITECT Unavailable + Stephen Barth MD Unavailable [phone] Reason for Visit * Reason Comments Follow-up * Consultation (Routine) - Authorized Specialty Diagnoses / Procedures Referred By Contac t Referred To Contact Infectious Diseases Diagnoses Infection of lumbar spine (CMS/HCC) (HCC) Susan Foley MD [address] [facility] [address] [place] [address] Phone: tel: fax: [facility] (All Locations) Referral ID Status Reason Start Date Expiration Date Visits Requested Visits Authorized [id number] Authorized Specialty Services Required 01/27/2024 02/05/2025 99 99 Encounter Details Date Type Department Care Team (Late st Contact Info) Description 02/04/2024 2:00 PM CDT Office Visit [facility] Infectious Diseases [address] [place] [address] [address] [place] [address] Rose Marie Holloway NP [address] [place] [address] Encounter for screening examination for sexually transmitted disease; Infection of lumbar spine (CMS/HCC) (HCC) Social History Tobacco Use Types [...] materials from doctor or pharmacy Never 01/09/2024 [facility] Utilities Answer Date Recorded In the past 12 months has [employer], oil, or water [employer] threatened to shut off services in your [...] 01/07/2024 How often do you attend chur or jainism services? 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 Gender Identity Not on file Sexual Orientation Lesbian 05/24/2019 9: 06 AM CDT documented as of this encounter Last Filed Vital Signs Vital Sign Reading Time Taken Comments Blood Pressure 104/51 02/04/2024 2:01 PM CDT Pulse 60 02/04/2024 2:01 PM CDT Temperature 36.6 ??C (97.9 ??F) 02/04/2024 2:01 PM CD T Respiratory Rate - - Oxygen Saturation 99% 02/04/2024 2:01 PM CDT Inhaled Oxygen Concentration - - Weight 76.2 kg (168 lb) 02/04/2024 2:01 PM CDT Height 165.1 cm (5' 5 ) 02/04/2024 2:01 PM CDT Body Mass Index 27.96 02/04/2024 2:01 PM CDT documented in this encounter Ordered Prescriptions Prescription Sig Dispense Quantity Refills Last Filled Start Date End Date cefadroxil (DURICEF) 500 mg capsule Take 2 capsules (1,000 mg total) by mouth 2 (two) times a day for 14 days 56 capsule 02/04/2024 4 documented in this encounter Progress Notes * Rose Marie Holloway, LU - 02/04/2024 2:00 PM CDT General Infectious Diseases Post Hospital Visit Patient Name: Macie Briseno [facility]OUS DIS[facility] [address] [place] [id number] Subjective Chief complaint of L1 discitis/osteomyelitis HPI: Macie Briseno is a 78 y.o. 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 Patient [...] History: Patient presents to clinic for a post hospital visit. She has done well since leaving the hospital. Her surgical incision has healed well and she denies swelling, erythema, drainage, and warmth of the incision. Her back pain has much improved and she is getting stronger. She denies fevers, chills, and night sweats. She has tolerated the antibiotics well without nausea, vomiting or diarrhea. Organism: MSSE Site of infection: L1 Retained hardware: Yes Location: Fusion [id number], no hardware at nonunion site Recent surgery: Fusion Surgeon: Miguel Angel Please see consult note dated: 01/05 Current antibiotic therapy: Ceftriaxone 2 grams IV every 24 hours Duration 6 weeks, can consider early PO switch in clinic after at least 2 weeks of IV Antibiotic start date: 01/05 Compliance with antibiotics: missed 0 doses. The patient has completed 4 weeks of antibiotic therapy. IV access: RUE PICC Line issues: rash from chlorhexidine Adverse effects from antibiotic therapy: none Review [...] radiculopathy Major depressive disorder, single episode, moderate ([facility]) Primary osteoarthritis involving multiple joints Pure hypercholesterolemia History of bilateral total hip arthroplasty S/P laparoscopic cholecystectomy Tinnitus Sudden idiopathic hearing loss of right ear Follow-up examination following surgery Essential hypertension Sensorineural hearing loss (SNHL) of both ears SNHL (sensory-neural hearing loss), asymmetrical Meniere's disease of both ears Abnormal ECG Inflammatory spondylopathy of thoracic region ([facility]) History of spinal fusion for scoliosis Acute low back pain Prophylactic antibiotic Paroxysmal atrial fibrillation (CMS/HCC) ([facility]) Late effects of spine fusion Post-operative pain Abnormal echocardiogram AV block, 2nd degree Apical variant hypertrophic cardiomyopathy ([facility]) Fusion of spine of thoracolumbar region ICD (implantable cardioverter-defibrillator), dual, in situ Hypersomnolence SNIDER (dyspnea on exertion) Pseudoarthrosis of lumbar spine Encounter for education Infection of lumbar spine (CMS/[facility]) ([facility]) Encounter for screening examination for sexually transmitted disease Allergies: Adhesive, Chlorhexidine, Sulfa (sulfonamide antibiotics), and Gabapentin HOME MEDICATIONS : acetaminophen 500 mg capsule alendronate (FOSAMAX) 70 mg tablet amiodarone (PACERONE) 200 mg tablet atorvastatin (LIPITOR) 20 mg tablet calcium carbonate (CALCIUM 500 ORAL) cefadroxil (DURICEF) 500 mg capsule cholecalciferol (VITAMIN D-3) 1,[address] (CYMBALTA) 60 mg capsule Eliquis 5 mg tablet furosemide (LASIX) 40 mg tablet furosemide (LASIX) 40 mg tablet magnesium citrate and oxide (magnesium citrate,mag oxide) 250 mg capsule methocarbamoL (ROBAXIN) 750 mg tablet metoprolol tartrate (LOPRESSOR) 25 mg immediate release tablet potassium chloride ER (KLOR-CON) 20 mEq CR tablet Vitals: Most Recent : Vitals BP 104/51 (BP Location: Right arm, Patient Position: Sitting) Pulse 60 Temp 36.6 ??C (97.9 ??F) (Oral) Ht 165.1 cm (5' 5 ) Wt 76.2 kg (168 lb) SpO2 99% BMI 27.96 kg/m?? Physical Exam Constitutional: General: She is [...] Routine ID screening: No results found for: [id number] , HEPCAB , LABRPR Micro: Lab Results [...] (HCC) -Patient presents to clinic for a post hospital visit. She has completed 4 weeks of Ceftriaxone forthe treatment of an MSSE discitis/osteomyelitis of the lumbar spine. -Patient would like to stop IV antibiotics today. We will stop and pull her PICC line in clinic. -She will transition to Cefadroxil 1000mg PO BID for an additional two weeks to complete 6 weeks ofantibiotics. -Reviewed labs in clinic today. -We will repeat ESR and CRP today - Discussed with patient the rational for treatment, culture results, risk of recurrent infection, signs/symptoms of recurrent infection, and to contact ID clinic with any questions or concerns. Encounter for screening examination for sexually transmitted disease Reviewed STI screening form, no concerns for STI testing today. Follow up: - Return in about 2 weeks (around 02/18/2024). Visit Diagnosis: 1. Encounter for screening examination for sexually transmitted disease 2. Infection of lumbar spine (CMS/HCC) (HCC) RoseM arie Mock [facility]- the Nurse Practitioner, have reviewed and examined this patient with the supervising MD present in the office suite, Dr. Valencia . Cosigned by Susan Foley MD at 02/09/2024 2:53 PM CDT documented in this encounter Miscellaneous Notes * Assessment & Plan Note - Rose Marie Holloway NP - 02/09/2024 12:07 PM CDT Associated Problem(s): Encounter for screening examination for sexually transmitted disease Reviewed STI screening form, no concerns for STI testing today. * Assessment & Plan Note - Rose Marie Holloway NP - 02/09/2024 12:06 PM CDT Associated Problem(s): Infection of lumbar spine (CMS/HCC) (HCC) -Patient presents to clinic for a post hospital visit. She has completed 4 weeks of Ceftriaxone forthe treatment of an MSSE discitis/osteomyelitis of the lumbar spine. -Patient would like to stop IV antibiotics today. We will stop and pull her PICC line in clinic. -She will transition to Cefadroxil 1000mg PO BID for an additional two weeks to complete 6 weeks ofantibiotics. -Reviewed labs in clinic today. -We will repeat ESR and CRP today - Discussed with patient the rational for treatment, culture results, risk of recurrent infection, signs/symptoms of recurrent infection, and to contact ID clinic with any questions or concerns. documented in this encounter Plan of Treatment Not on file documented as of this encounter Results * Erythrocyte sedimentation rate (02/04/2024 6:39 PM CDT) Erythrocyte sedimentation rate 14 1 - 30 mm/hr Blood 02/04/2024 6:39 PM CDT 02/04/2024 7:30 PM CDT Rose Marie Holloway NP LAB BLOOD ORDERABLES Final Result [facility] Department [place] [address] * CRP (acute phase) (02/04/2024 6:39 PM CDT) CRP 3.2 <=10.0 mg/L Blood 02/04/2024 6:39 PM CDT 02/04/2024 7:30 PM CDT Rose Marie Holloway FORCER MAKER LAB BLOOD ORDERABLES Final Result [facility] Department [place] [address] documented in this encounter Visit Diagnoses Diagnosis Encounter for screening examination for sexually transmitted disease Infection of lumbar spine (CMS/HCC) (HCC) documented in this encounter Discontinued Medications Medication Sig Discontinue Reason Start Date End Da te heparin sod,porcine/0.9 % NaCl (HEPARIN FLUSH IV)Indications:PICC line maintence Infuse 5 mL into a venous catheter as needed (PICC line maintenence). 10 Units/ML Indications: PICC line maintence Therapy completed 02/04/2024 cefTRIAXone (ROCEPHIN) syringeIndications:Bon e/Joint Infection [The details of the medication are not available because there are pending changes by a home health clinician.] Therapy completed 01/09/2024 02/04/2024 documented as of this encounter Orders Outpatient Referral Count Last Ordered Date Fir st Ordered Date AMB REFERRAL TO INFECTIOUS DISEASE 1 2023 documented in this encounter Care Teams Pad Machine Offbearer Relationship Specialty Start Date End Date Enmanuel Gan MD [address] [place] [address] PCP - General Internal Medicine 04/26/20 Tg Houston MD [address] [place] [address] Consulting Physician Cardiology 07/18/20 Guerrero Hunter DPT [address] [facility] [address] [place] [address] Physical Therapist Physical Therapy 11/08/20 Guerrero Weiner, MOBILE SOLUTIONS ARCHITECT [address] [facility] [address] [place] [address] Rubber Tire Curer Physical Therapy 12/12/20 Stephen Barth MD [address] [facility] [address] [place] [address] Referring Physician Transplant 10/19/23 documented as of this encounter
--- OUTSIDE RECORDS SUMMARY | 2024-07-12 08:38 | XMS_ITS | Encounter Summary ---
Author Organization [facility] Address [address] [place] [address] Care Team Providers Care Motor Driver Name Role Phone Enmanuel Gan MD Primary Care Provider [phone] Tg Houston MD Unavailable [phone] Guerrero Hunter DPT Unavailable + Guerrero Weiner MILL TURNER Unavailable + Stephen Barth MD Unavailable [phone] Reason for Visit * Reason Comments Post-op Spine Surgery * Auth/Cert (Routine) Specialty Diagnoses / Procedures Referred By Contac t Referred To Contact Referral ID Status Reason Start Date Expiration Date Visits Re quested Visits Authorized [id number] 1 1 Encounter Details Date Type Department Care Team (Late st Contact Info) Description 02/05/2024 9:00 AM CDT Home Care Visit [facility] [address] [address] [address] [place] [address] Kindra Epps, PT PT HOME VISIT Social [...] materials from doctor or pharmacy Never 01/09/2024 [facility] Utilities Answer Date Recorded In the [...] attend chur ch or confucianism services? Never 01/07/2024 Do you belong to any clubs o r organizations such as jew groups, unions, fraternal or athletic groups, or [...] any time in the past 12 m [facility], were you homeless or living in a custodial (including now)? No 01/07/2024 Personal Safety Answer Date Recorded Have you ever been in or are you currently in a harmful physical or emotional relationship or is someone making you feel afraid or unsafe? 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 Gender Identity Not on file Sexual Orientation Lesbian 05/24/2019 9: 06 AM CDT documented as of this encounter Last Filed Vital Signs Vital Sign Reading Time Taken Comments Blood Pressure 128/70 02/05/2024 12:00 AM CDT Pulse 81 02/05/2024 12:00 AM CDT Temperature 35.8 ??C (96.5 ??F) 02/05/2024 12:00 AM C DT Respiratory Rate 18 02/05/2024 12:00 AM CDT Oxygen Saturation 98% 02/05/2024 12:00 AM CDT Inhaled Oxygen Concentration - - Weight - - Height - - Body Mass Index - - documented in this encounter Miscellaneous Notes * Home Health Plan for Next Visit - Kindra Epps, PT - 02/05/2024 9:24 AM CDT Reason for today's visit: s/p spine surgery Discuss plan of care with patient Discharge planning: will continue PT POC Plan for next visit: advance HEP and balance training documented in this encounter Plan of Treatment [...] home health visit Disciplines: SN, PT, OT, COMMERCIAL INTERNSHIP, LINE WALKER, Skilled Disciplines Monitor patient's vital signs every [...] spinal fusion and revision 01/12/2024 Active - 4 problem interventions scheduled/documen maritza in this visit PT Activity Tolerance/Energy Conservation Disciplines: Physical Therapy Impaired activity tolerance for functional activity 01/12/2024 Active - 1 problem intervention scheduled/documen maritza in this visit Goals Goal Associated Problem Outcome Goal Met? Visit Notes Patient receives care at the most appropriate care setting Description: Patient receives care at the most appropriate care setting. Homebound Status No Measure vital signs during every home health visit during episode of care Description: Home manager massage department to measure vital signs during every home [...] exercise, progressing as tolerated. Problem:PT Orthopedic Completed Energy Conservation Education Description: Instruct patient/caregiver in techniques for improved activity tolerance. Problem:PT Activity Tolerance/Energy Conservation Completed documented in this encounter Care Teams Motor Driver Relationship Specialty Start Date End Date Enmanuel Gan MD [address] [place] [address] PCP - General Internal Medicine 04/26/20 Tg Houston MD [address] [place] [address] Consulting Physician Cardiology 07/18/20 Guerrero Hunter DPT [address] [facility] [address] [place] [address] Physical Therapist Physical Therapy 11/08/20 Guerrero Weiner, [facility] [address] [facility] [address] [place] [address] Superintendent Pressure Physical Therapy 12/12/20 Stephen Barth MD [address] [place] [address] Referring Physician Transplant 10/19/23 documented as of this encounter
--- OUTSIDE RECORDS SUMMARY | 2024-07-12 08:38 | XMS_ITS | Encounter Summary ---
Author Organization [facility] Healthcare Address [address] [place] [address] Care Team Providers Care Surg Nurse Name Role Phone Enmanuel Gan MD Primary Care Provider [phone] Tg Houston MD Unavailable [phone] Guerrero Hunter DPT Unavailable + Guerrero Weiner HOUSE STEWARD/STEWARDESS Unavailable +[phone] Stephen Barth MD Unavailable [phone] Encounter Details Date Type Department Care Team (Latest Contact Info) Description 02/04/2024 6:39 PM CDT - 02/04/2024 11:59 PM CDT Hospital Encounter [address] [address] Infection of lumbar spine (CMS/HCC) (HCC) Discharge Disposition: Discharge to home or self [...] materials from doctor or pharmacy Never 01/09/2024 [facility] Utilities Answer Date Recorded In the [...] any time in the past 12 m [facility], were you homeless or living in [...] file Legal Sex Female 9:09 PM DIRECTOR RISK Gender Identity Not on file Sexual Orientation [...] spray 1 spray(s), Nasal, daily, 1 each, Kenney, 0 08/20/2023 magnesium citrate and oxide (magnesium [...] Indications: decreased bone mass following menopause 4 cefadroxil (DURICEF) 500 mg capsule Take 2 capsules (1,000 mg total) by mouth 2 (two) times a day for 14 days 56 capsule 02/04/2024 4 metoprolol tartrate (LOPRESSOR) 25 mg immediate [...] Procedure Name Priority Date/Time Associated Diagnosis Comments ERYTHROCYTE SEDIMENTATION RATE Routine 02/04/2024 6:39 PM CDT Infection of lumbar spine (CMS/HCC) (HCC) CRP (ACUTE PHASE) Routine 02/04/2024 6:3 9 PM CDT Infection of lumbar spine (CMS/HCC) (HCC) documented in this encounter Results * CRP (acute phase) (02/04/2024 6:39 PM CDT) CRP 3.2 <=10.0 mg/L Blood 02/04/2024 6:39 PM CDT 02/04/2024 7:30 PM CDT us Rose Marie Holloway NP LAB BLOOD ORDERABLES Final Result Performing Organization Address City/[facility]/ZIP Co de Phone Number [facility] Department [place] [address] * Erythrocyte sedimentation rate (02/04/2024 6:39 PM CDT) Erythrocyte sedimentation rate 14 1 - 30 mm/hr Blood 02/04/2024 6:39 PM CDT 02/04/2024 7:30 PM CDT us Rose Marie Holloway NP LAB BLOOD ORDERABLES Final Result Performing Organization Address City/[facility]/ZIP Co de Phone Number [facility] Department [place] [address] documented in this encounter Visit Diagnoses Diagnosis Infection of lumbar spine (CMS/HCC) (HCC) documented in this encounter Care Teams Surg Nurse Relationship Specialty Start Date End Date Enmanuel Gan MD [address] [place] [address] PCP - General Internal Medicine 04/26/20 Tg Houston MD [address] [facility] [address] [place] [address] Consulting Physician Cardiology 07/18/20 Guerrero Hunter DPT [address] [facility] [address] [facility] [place], [place] [id number] Physical Therapist Physical Therapy 11/08/20 Guerrero Weiner, [facility] [address] [place] [address] Commercial Loan Reviewer Physical Therapy 12/12/20 Stephen Barth MD [address] [facility] [address] [place] [address] Referring Physician Transplant 10/19/23 documented as of this encounter
--- OUTSIDE RECORDS SUMMARY | 2024-07-12 08:38 | XMS_ITS | Encounter Summary ---
Author Organization [facility] Address [address] [place] [address] Phone Care Team Providers Care Dental Scheduler Name Role Phone Enmanuel Gan MD Primary Care Provider [phone] Tg Houston MD Unavailable [phone] Guerrero Hunter DPT Unavailable [phone] Guerrero Weiner ELECTRONICS TESTER Unavailable [phone] Stephen Barth MD Unavailable [phone] Reason for Visit * Reason Onset Date Comments OPAT 02/03/2024 Encounter Details Date Type Department Care Team (Late st Contact Info) Description 02/03/2024 Documentation [facility] Infectious Diseases [address] [place] [address] [address] [place] [address] Kelly Guerrero NP [address] [place] [address] OPAT Social History Tobacco Use Types Packs/Day Years [...] materials from doctor or pharmacy Never 01/09/2024 [facility] Utilities Answer Date Recorded In the [...] often do you attend chur ch or yazidism services? Never 01/07/2024 Do you belong to any clubs o r organizations such as restorationist groups, unions, fraternal or athletic groups, or [...] any time in the past 12 m [facility], were you homeless or living in a usp (including now)? No 01/07/2024 Personal Safety Answer Date Recorded Have you ever been in or are you currently in a harmful physical or emotional relationship or is someone making you feel afraid or unsafe? 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 Gender Identity Not on file Sexual Orientation Lesbian 05/24/2019 9: 06 AM CDT documented as of this encounter Progress Notes * Kelly Guerrero NP - 02/03/2024 12:55 PM CDT Infectious Disease OPAT Monitoring Note Dx: L1 discitis/osteomyelitis Abx: Ceftriaxone 2 grams IV every 24 hours Duration 6 weeks, can consider early PO switch in clinicafter at least 2 weeks of IV Labs: CBC with diff, CMP, and ESR/CRP Inpt LOW RAW SUGAR CUTTER/Attg: Orthopedic ID- Ivone Guerrero NP; Annie Outpt: Jewel BARRERA appt: 02/04/24 Discharge date: 01/08/24 HI/Facility: [facility] Home Infusion ([phone]) [facility] Imaging: none Access: PICC FYI: Labs: Date WBC ANC Eos Plt Scrt AST/ALT 01/05 (inpt) 8.1 5.4 0.3 325 0.94 01/12 6.3 4.4 0.2 388 0.89 01/19 8.0 5.9 0.1 475 0.87 01/21 6.5 4.5 0.1 482 01/26 5.5 3.9 0.2 411 0.80 02/01 6.5 4.3 0.2 338 1.01 Assessment/Plan: 02/02: Reviewed labs in Epic from 02/01 and 01/26. Continue with ceftriaxone. ID appt tomorrow. 01/24: Called patient to see how she was doing with the itching/rash. She reports the dressing was changed on Thursday and the itching has significantly improved but not completely resolved. Of note, lucius was told my someone she thought to stop the antibiotic. Instructed patient to start infusing the antibiotic again today and report back. Reviewed repeat labs with patient and reported it was all reassuring findings. Discussed upcoming ID appointment on 02/03 and that antibiotics should be continued until seen in clinic. 01/21: Called patient who reports HH changed the dressing on her line on 01/19 and noted a slight itch at the end of the nursing visit. She continues to have itching, burning and tenderness underneath the dressing. HH RN came back yesterday and agreed it was a topical reaction. Patient did her infusion last night and reports increased itching starting about 5 minutes after the injection. She reports she she gives the antibiotic over 5 minutes. Today she is still having itching under the dressing.No systemic symptoms and no rash to her trunk, thighs, or other locations. Itching is localized. NOn/v/d, CP, SOB or other symptoms. Discussed worrisome symptoms requiring a call back. Called [facility] and requested repeat labs, change the dressing and see about infusing the antibiotic slower. 01/17: Reviewed summary of treatment note, CM note, and most recent OPAT labs reviewed. No changes to antibiotic regimen. 01/11: No new labs since discharge. Continue ceftriaxone. Time spent: 20 minutes documented in this encounter Plan of Treatment Not on file documented as of this encounter Visit Diagnoses Not on filedocumented in this encounter Care Teams Dental Scheduler Relationship Specialty Start Date End Date Enmanuel Gan MD [address] [place] [address] PCP - General Internal Medicine 04/26/20 Tg Houston MD [address] [place] [address] Consulting Physician Cardiology 07/18/20 Guerrero Hunter DPT [address] [facility] [address] [place] [address] Physical Therapist Physical Therapy 11/08/20 Guerrero Weiner, [facility] [address] [facility] [address] [place] [address] Surveying Technician Physical Therapy 12/12/20 Stephen Barth MD [address] [place] [address] Referring Physician Transplant 10/19/23 documented as of this encounter
--- OUTSIDE RECORDS SUMMARY | 2024-07-12 08:38 | XMS_ITS | Encounter Summary ---
Author Organization [facility] Address [address] [place] [address] Phone Care Team Providers Care Security Incident Response Specialist Name Role Phone Enmanuel Gan MD Primary Care Provider [phone] Tg Houston MD Unavailable [phone] Guerrero Hunter DPT Unavailable [phone] Guerrero Weiner EXCAVATOR OPERATOR Unavailable [phone] Stephen Barth MD Unavailable [phone] Encounter Details Date Type Department Care Team (Late st Contact Info) Description 02/10/2024 Telephone [facility] Infectious Diseases [address] [place] [address] [address] [place] [address] Carolann Gutierrez BS Social History Tobacco Use Types Packs/Day Years [...] materials from doctor or pharmacy Never 01/09/2024 [facility] Utilities Answer Date Recorded In the [...] attend chur ch or zoroastrianism services? Never 01/07/2024 Do you belong to [...] were you homeless or living in a long term (including now)? No 01/07/2024 Personal Safety Answer Date Recorded Have you ever been in or are you currently in a harmful physical or emotional relationship or is someone making you feel afraid or unsafe? 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 During infusion ~ 4 weeks in arm @ picc line got red/itchy with a few hives, picc line out and it stopped but still had minor hives and itching After evening set of pills last evening pt broke out into red bumps and itching Pt is going to stop taking abx until discussed [phone] documented in this encounter Plan of Treatment Not on file documented as of this encounter Visit Diagnoses Not on filedocumented in this encounter Care Teams Security Incident Response Specialist Relationship Specialty Start Date End Date Enmanuel Gan MD [address] [facility] [address] [place] [id number] PCP - General Internal Medicine 04/26/20 Tg Houston MD [address] [place] [address] Consulting Physician Cardiology 07/18/20 Guerrero Hunter, [place] [address] [facility] [address] [place] [address] Physical Therapist Physical Therapy 11/08/20 Guerrero Weiner, EXCAVATOR OPERATOR [address] [facility] [address] [place], [place] [id number] Hand Packager Physical Therapy 12/12/20 Stephen Barth MD [address] [place] [address] Referring Physician Transplant 10/19/23 documented as of this encounter
--- OUTSIDE RECORDS SUMMARY | 2024-07-12 08:38 | XMS_ITS | Encounter Summary ---
Author Organization [facility] Healthcare Address [address] [place] [address] Care Team Providers Care Occupational Health Manager Name Role Phone Enmanuel Gan MD Primary Care Provider [phone] Tg Houston MD Unavailable [phone] Guerrero Hunter DPT Unavailable +[phone] Guerrero Weiner TRIMMER HAND Unavailable +[phone] Stephen Barth MD Unavailable [phone] Encounter Details Date Type Department Care Team (Late st Contact Info) Description 02/05/2024 Orders Only [facility] [address] [place] [address] Jayda Domingo, [facility] Social History Tobacco Use Types [...] materials from doctor or pharmacy Never 01/09/2024 [facility] Utilities Answer Date Recorded In the [...] often do you attend chur ch or hinduism services? Never 01/07/2024 Do you belong to [...] any time in the past 12 m [facility], were you homeless or living in a alf (including now)? No 01/07/2024 Personal Safety Answer Date Recorded Have you ever been in or are you currently in a harmful physical or emotional relationship or is someone making you feel afraid or unsafe? 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 Susan Nichols MD/Jayda Domingo PharmD Firm stop 02/03. Picc pulled in office. Ok to discharge. documented in this encounter Plan of Treatment Not on file documented as of this encounter Visit Diagnoses Not on filedocumented in this encounter Care Teams Occupational Health Manager Relationship Specialty Start Date End Date Enmaneul Gan MD [address] [place] [address] PCP - General Internal Medicine 04/26/20 Tg Houston MD [address] [place] [address] Consulting Physician Cardiology 07/18/20 Guerrero Hunter DPT [address] [facility] [address] [place], [place] [phone] Physical Therapist Physical Therapy 11/08/20 Guerrero Weiner, TRIMMER HAND [address] [facility] [address] [place], [place] [id number] Die Lay Out Worker Physical Therapy 12/12/20 Stephen Barth MD [address] [facility] [address] [place] [address] Referring Physician Transplant 10/19/23 documented as of this encounter
--- OUTSIDE RECORDS SUMMARY | 2024-07-12 08:38 | XMS_ITS | Encounter Summary ---
Author Organization [facility] Healthcare Address [address] [place] [address] Care Team Providers Care Blueprint Processor Name Role Phone Enmanuel Gan MD Primary Care Provider [phone] Tg Houston MD Unavailable [phone] Guerrero Hunter DPT Unavailable + Guerrero Weiner PRICING SUPERVISOR Unavailable + Stephen Barth MD Unavailable [phone] Reason for Visit * Reason Comments Post-op Spine Surgery * Auth/Cert (Routine) Specialty Diagnoses / Procedures Referred By Contac t Referred To Contact Referral ID Status Reason Start Date Expiration Date Visits Re quested Visits Authorized [id number] 1 1 Encounter Details Date Type Department Care Team (Late st Contact Info) Description 02/11/2024 9:30 AM CDT Home Care Visit [facility] [address] [address] [place] [address] Kindra Epps, PT PT HOME VISIT Social [...] materials from doctor or pharmacy Never 01/09/2024 [facility] Utilities Answer Date Recorded In the past [...] often do you attend chur ch or mosque services? Never 01/07/2024 Do you belong to any clubs o r organizations such as sabianist groups, unions, fraternal or athletic groups, or [...] No 01/07/2024 Housing Stability Vital Sign Answer Rmain e Recorded In the last 12 months, was t here a time when you were not able to pay the mortgage or rent on time? No 01/07/2024 In the past 12 months, how m any times have you moved where you were living? 1 01/07/2024 At any time in the past [address] 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 Gender Identity Not on file Sexual Orientation Lesbian 05/24/2019 9: 06 AM CDT documented as of this encounter Last Filed Vital Signs Vital Sign Reading Time Taken Comments Blood Pressure 122/62 02/11/2024 10:09 AM CDT Pulse 71 02/11/2024 10:09 AM CDT Temperature 35.8 ??C (96.5 ??F) 02/11/2024 10:09 AM C DT Respiratory Rate 18 02/11/2024 10:09 AM CDT Oxygen Saturation 98% 02/11/2024 10:09 AM CDT Inhaled Oxygen Concentration - - Weight - - Height - - Body Mass Index - - documented in this encounter Miscellaneous Notes * Home Health Plan for Next Visit - Kindra Epps, PT - 02/11/2024 9:39 AM CDT Reason for today's visit: pain s/p spine surgery Discuss plan of care with patient Discharge planning: will continue PT POC Plan for next visit: will advance HEP as possible documented in this encounter Plan of Treatment [...] home health visit Disciplines: SN, PT, OT, OPERATIONS SUPPORT REPRESENTATIVE, POULTRY BREEDER, Skilled Disciplines Monitor patient's vital signs every [...] visit during episode of care Description: Home home therapy clinician to measure vital signs during every home [...] that pain has been reduced or controlled Completed Home Exercise Program (HEP) Description: Instruct patient/caregiver and perform HEP. Problem:PT Orthopedic Completed Cryotherapy Description: Use of cold for pain relief. Instruct patient/caregiver in use of cold to x 15-20 minutes, with 1 hour off between applications. Problem:PT Orthopedic Completed Therapeutic Exercise Description: Perform therapeutic exercise, progressing as tolerated. Problem:PT Orthopedic Completed documented in this encounter Care Teams Blueprint Processor Relationship Specialty Start Date End Date Enmanuel Gan MD [address] [place] [address] PCP - General Internal Medicine 04/26/20 Tg Houston MD [address] [place] [address] Consulting Physician Cardiology 07/18/20 Guerrero Hunter DPT [address] [facility] [address] [facility] [place] [address] Physical Therapist Physical Therapy 11/08/20 Guerrero Weiner, [facility] [id number] [place], [place] [id number] Telemetry Monitor Physical Therapy 12/12/20 Stephen Barth MD [address] [place] [address] Referring Physician Transplant 10/19/23 documented as of this encounter
--- OUTSIDE RECORDS SUMMARY | 2024-07-12 08:39 | XMS_ITS | Encounter Summary ---
Author Organization [facility] Healthcare Address [address] [place] [address] Care Team Providers Care Welder/Installer Name Role Phone Enmanuel Gan MD Primary Care Provider [phone] Tg Houston MD Unavailable [phone] Guerrero Hunter DPT Unavailable + Guerrero Weiner UNDERWRITING OPERATIONS MANAGER Unavailable + Stephen Barth MD Unavailable [phone] Reason for Visit * Auth/Cert (Routine) Specialty Diagnoses / Procedures Referred By Contwolfgang t Referred To Contact Referral ID Status Reason Start Date Expiration Date Visits Re quested Visits Authorized [id number] 1 1 Encounter Details Date Type Department Care Team (Late st Contact Info) Description 01/22/2024 Home Care Visit [facility] [address] [address] [address] [place] [address] Ioana Doe RN SN TRIAGE ENCOUNTER Social History Tobacco Use Types Packs/Day [...] materials from doctor or pharmacy Never 01/09/2024 [facility] Utilities Answer Date Recorded In [...] any clubs o r organizations such as uatsdin groups, unions, fraternal or athletic groups, or [...] were you homeless or living in a prison (including now)? No 01/07/2024 Personal Safety Answer Date Recorded Have you ever been in or are you currently in a harmful physical or emotional relationship or is someone making you feel afraid or unsafe? Denies 01/06/2024 Comments No Sex and Gender Information Value Date Recorded Sex Assigned at Not on file Legal Sex Female 9:09 PM PACKING CLERK Gender Identity Not on file Sexual Orientation Lesbian 05/24/2019 9: 06 AM CDT documented as of this encounter Miscellaneous Notes * Triage Note - Ioana Doe RN - 01/22/2024 8:51 PM CDT Reason for call: Need lab redrawn Animal Doctor: Jeniffer Relationship to patient: with [facility] lab Phone number of civil engineering design draftsperson: [phone] Return call time: 8:55pm Communication details: RE:ISSUE WITH A SPECIMEN THAT WE RECEIVED. PLEASE CALL Returned call to Jeniffer who states they received an order for a CMP but did not receive the correctblood tube. Reports the blood needs to be drawn in a green top tube. Instructed will notify the Ctea that the lab will have to be redrawn. Follow-up Notified care team, Mónica Cabrales, HC charge nurses, and [place] schedulers documented in this encounter Plan of Treatment Not on file documented as of this encounter Visit Diagnoses Not on filedocumented in this encounter Home Health Visit - Care Plan Visit Details Visit Type -SN Triage Encoun ter Discipline -Prison Problems Problem Description Start Date Status Goals Interventions Homebound Status Disciplines: Skilled Disciplines Patient's homebound status 01/09/2024 Active 1 goal linked to scheduled/docume nted intervention 1 goal intervention scheduled/documen maritza in this visit Monitor patient's vital signs every home health visit Disciplines: SN, PT, OT, ASSOCIATE PROFESSOR OF ENGLISH, PIPING SUPERVISOR, Skilled Disciplines Monitor patient's vital signs every home health visit. 01/09/2024 Active 1 goal linked to scheduled/docume nted intervention 1 goal intervention scheduled/documen maritza in this visit Collect Specimen/Lab Draw Disciplines: Prison Management of specimen samples, including lab draws, stool, urine, sputum & wound cultures 01/13/2024 Active - 2 problem interventions scheduled/documen maritza in this visit Infection Prevention [...] wound management and risk of infection. 01/09/2024 Active 1 goal linked to scheduled/docume nted intervention 1 goal intervention scheduled/documen maritza in this visit Medications Disciplines: Prison Management of IV Medications 01/09/2024 Active - 1 problem intervention scheduled/documen maritza in this visit Safety concerns Disciplines: Prison Safety needs related to infusion administration 01/09/2024 Active - 1 problem intervention scheduled/documen maritza in this visit IV Therapy-Manageme nt, Education, and Maintenance Disciplines: Prison IV Management, education, and maintenance for home IV therapy. 01/09/2024 Active - 2 problem interventions scheduled/documen maritza in this visit Goals Goal Associated Problem Outcome Goal Met? Visit Notes Patient receives care at the most appropriate care setting Description: Patient receives care at the most appropriate care setting. Homebound Status No Measure vital signs during every home health visit during episode of care Description: Home assistant product manager to measure vital signs during every home [...] of pain and symptom control. Pain No Knowledgeable of Wound Management Description: Patient/caregiver [...] home health services. Wound Education and Management No Interventions Intervention Associated Problem/Goal Status Variance [...] health visit during episode of care Scheduled Collect lab specimens Description: Obtain CBC stat on 01/22/24 and send to ID. Order received via fax on 01/22/24. Problem:Collect Specimen/Lab Draw Scheduled Lab and diagnostics per physician order Description: TORB to Srikanth HANEY/ Dr Leslie Valencia/Latisha Hogan,Pharm.D. Following pharmacist Jayda Domingo Draw CBC w/diff MELISSA Problem:Collect Specimen/Lab Draw Scheduled Educate Patient on Infection Prevention Description: [...] pain has been reduced or controlled Scheduled Educate on Wound Care Management Description: Instruct patient/caregiver on wound management including: nutrition and hydration needs for altered skin integrity, signs and symptoms of infection and/or wound deterioration to report to home health agency and or physician. Problem:Wound Education and Management Goal:Knowledgeable of Wound Management Scheduled Instruct on Medication Management Description: Instruct patient/caregiver in medication administration, purpose, dosages, preparation, scheduling, side effects, food/drug interactions, storage, drug allergies, and potential complications. Problem:Medications Scheduled Instruct on IV complications Description: Instruct patient/caregiver on how to manage breaks in line, signs/symptoms of complications, who to contact for complications and how to contact the nurse, MD and infusion service Problem:Safety concerns Scheduled PICC Line Description: PICC Line with one [...] line arm. Problem:IV Therapy-Management, Education, and Maintenance Scheduled IV Management and Education Description: Instruct patient/caregiver [...] of complications. Problem:IV Therapy-Management, Education, and Maintenance Scheduled documented in this encounter Care Teams Welder/Installer Relationship Specialty Start Date End Date Enmanuel Gan MD [address] [facility] [address] [place] [address] PCP - General Internal Medicine 04/26/20 Tg Houston MD [address] [facility] [address] [place] [address] Consulting Physician Cardiology 07/18/20 Guerrero Hunter DPT [address] [facility] [address] [place] [address] Physical Therapist Physical Therapy 11/08/20 Guerrero Weiner, [facility] [address] [place] [address] Studio Sales Associate Physical Therapy 12/12/20 Stephen Barth MD [address] [facility] [address] [place] [address] Referring Physician Transplant 10/19/23 documented as of this encounter
--- OUTSIDE RECORDS SUMMARY | 2024-07-12 08:39 | XMS_ITS | Encounter Summary ---
Author Organization [facility] Healthcare Address [address] [place] [address] Care Team Providers Care Lettuce Cutter Name Role Phone Enmanuel Gan MD Primary Care Provider [phone] Tg Houston MD Unavailable [phone] Guerrero Hunter DPT Unavailable + Guerrero Weiner AUTOMOTIVE SERVICE MANAGEMENT TEACHER Unavailable [phone] Stephen Barth MD Unavailable [phone] Reason for Visit * Auth/Cert (Routine) Specialty Diagnoses / Procedures Referred By Contwolfgang t Referred To Contact Referral ID Status Reason Start Date Expiration Date Visits Re quested Visits Authorized [id number] 1 1 Encounter Details Date Type Department Care Team (Late st Contact Info) Description 01/21/2024 11:00 AM CDT Home Care Visit [facility] [address] [address] [address] [place] [address] Margi Coelho HOME VISIT Social History Tobacco Use Types [...] from doctor or pharmacy Never 01/09/2024 [facility] Utilities Answer Date Recorded In the past [...] attend chur ch or bahai services? Never 01/07/2024 Do you belong to any clubs o r organizations such as yarsani groups, unions, fraternal or athletic groups, or [...] time in the past 12 m [facility], were you homeless or [...] on file Legal Sex Female 9:09 PM AIRCRAFT ACCESSORIES MECHANIC Gender Identity Not on file Sexual Orientation Lesbian 05/24/2019 9: 06 AM CDT documented as of this encounter Last Filed Vital Signs Vital Sign Reading Time Taken Comments Blood Pressure 126/70 01/21/2024 11:22 AM CDT Pulse 70 01/21/2024 11:22 AM CDT Temperature 36.4 ??C (97.6 ??F) 01/21/2024 11:22 AM C DT Respiratory Rate 18 01/21/2024 11:22 AM CDT Oxygen Saturation 98% 01/21/2024 11:22 AM CDT Inhaled Oxygen Concentration - - Weight - - Height - - Body Mass Index - - documented in this encounter Miscellaneous Notes * Home Health Plan for Next Visit - Margi Coelho - 01/21/2024 11:24 AM CDT Reason for today's visit: PRN visit for patient c/o itching, redness, welp above PICC line dressingchange Discuss plan of care with patient Discharge planning: ongoing Plan for next visit: PICC line dressing change, assessment, labs as ordered documented in this encounter Plan of Treatment Not on file documented as of this encounter Visit Diagnoses Not on filedocumented in this encounter Home Health Visit - Care Plan Visit Details Visit Type -SN Home Visit Discipline -Care Home Problems Problem Description Start Date Status Goals Interventions Homebound Status Disciplines: Skilled Disciplines Patient's homebound status 01/09/2024 Active 1 goal linked to scheduled/docume nted intervention 1 goal intervention scheduled/documen maritza in this visit Monitor patient's vital signs every home health visit Disciplines: SN, PT, OT, PATIENT CARE COORDINATOR, FERMENTOLOGIST, Skilled Disciplines Monitor patient's vital signs every [...] scheduled/documen maritza in this visit Medications Disciplines: Care Home Management of IV Medications 01/09/2024 Active - 2 problem interventions scheduled/documen maritza in this visit Safety concerns Disciplines: Care Home Safety needs related to infusion administration 01/09/2024 Active - 1 problem intervention scheduled/documen maritza in this visit IV Therapy-Manageme nt, Education, and Maintenance Disciplines: Care Home IV Management, education, and maintenance for [...] visit during episode of care Description: Home tip banding machine operator to measure vital signs during every [...] pulse, oxygen saturation, respirations. No abnormal findings. Educate Patient on Infection Prevention Description: Instructed patient on signs and symptoms of infection IE: fever, warmth pain, purulent drainage or drainage that has a change in color or odor. Problem:Infection Prevention Goal:Verbalize signs of infection Completed Instructed patient on signs and symptoms of infection IE: fever, warmth pain, purulent drainage or drainage that has a change in color or odor. Educate Family on Infection Prevention Description: Instructed [...] and Management Goal:Knowledgeable of Wound Management Scheduled IV Infusion Description: Instruct patient/caregiver on IV Rocephin. Problem:Medications Completed significant other administers Rocephin 2gm IV daily over 5 minutes Instruct on Medication Management Description: Instruct patient/caregiver in medication administration, purpose, dosages, preparation, scheduling, side effects, food/drug interactions, storage, drug allergies, and potential complications. Problem:Medications Scheduled Instruct on IV complications Description: Instruct patient/caregiver on how to manage breaks in line, signs/symptoms of complications, who to contact for complications and how to contact the nurse, MD and infusion service Problem:Safety concerns Completed Patient contacted HH office with the c/o itching, redness above picc line dressing PICC Line Description: PICC Line with one [...] Scheduled documented in this encounter Care Teams Lettuce Cutter Relationship Specialty Start Date End Date Enmanuel Gan MD [address] [facility] [address] [place] [address] PCP - General Internal Medicine 04/26/20 Tg Houston MD [address] [facility] [address] [place] [address] Consulting Physician Cardiology 07/18/20 Guerrero Hunter DPT [address] [facility] [address] [facility] [place], [place] [id number] Physical Therapist Physical Therapy 11/08/20 Guerrero Weiner, [facility] [id number] [place] [address] Loading Dock Helper Physical Therapy 12/12/20 Stephen Barth MD [address] [facility] [address] [place] [address] Referring Physician Transplant 10/19/23 documented as of this encounter
--- OUTSIDE RECORDS SUMMARY | 2024-07-12 08:39 | XMS_ITS | Encounter Summary ---
Author Organization [facility] Healthcare Address [address] [place] [address] Care Team Providers Care Tie Hacker Name Role Phone Enmanuel Gan MD Primary Care Provider [phone] Tg Houston MD Unavailable [phone] Guerrero Hunter DPT Unavailable + Guerrero Weiner HAIRSPRING SETTER Unavailable + Stephen Barth MD Unavailable [phone] Encounter Details Date Type Department Care Team (Latest Contact Info) Description 01/22/2024 7:07 PM CDT - 01/22/2024 11:59 PM CDT Hospital Encounter [address] [id number] Discharge Disposition: Discharge to home or self [...] from doctor or pharmacy Never 01/09/2024 [facility] Utilities Answer Date Recorded In [...] often do you attend chur ch or yazidi services? Never 01/07/2024 Do you belong to any clubs o r organizations such as taoism groups, unions, fraternal or athletic groups, or [...] any time in the past 12 m [facility], were you homeless or living in a [...] on file Legal Sex Female 9:09 PM TELECOM SPECIALIST Gender Identity Not on file Sexual [...] spray 1 spray(s), Nasal, daily, 1 each, Kinzers, 0 08/20/2023 magnesium citrate and oxide (magnesium [...] Procedure Name Priority Date/Time Associated Diagnosis Comments DIFFERENTIAL AUTO Routine 01/22/2024 8:2 5 PM CDT CBC WITH AUTO DIFFERENTIAL Routine 01/22/2024 8:25 PM CDT documented in this encounter Results * Differential, auto (01/22/2024 8:25 PM CDT) Neutrophil abs 4.5 1.5 - 6.5 K/cumm Imm gran abs 0.0 0.0 - 0.1 K/cumm [facility] Lymphocyte abs 1.3 0.8 - 3.3 K/cumm [facility] Monocyte abs 0.5 0.2 - 0.8 K/cumm [facility] Eosinophil abs 0.1 0.0 - 0.5 K/cumm [facility] Basophil abs 0.1 0.0 - 0.1 K/cumm [facility] Neutrophil pct 69.3 % [facility] Comment: Interpretive Data Percent cell count reference ranges are not reported, since discordance with absolute values may lead to misinterpretation of CBC data. Current Interpretive Data was last revised on 2017. Imm gran pct 0.3 % [facility] Comment: Interpretive Data Percent cell count reference ranges are not reported, since discordance with absolute values may lead to misinterpretation of CBC data. Current Interpretive Data was last revised on 2017. Lymphocyte pct 20.1 % [facility] Comment: Interpretive Data Percent cell count reference ranges are not reported, since discordance with absolute values may lead to misinterpretation of CBC data. Current Interpretive Data was last revised on 2017. Monocyte pct 7.1 % [facility] Comment: Interpretive Data Percent cell count reference ranges are not reported, since discordance with absolute values may lead to misinterpretation of CBC data. Current Interpretive Data was last revised on 2017. Eosinophil pct 2.0 % [facility] Comment: Interpretive Data Percent cell count reference ranges are not reported, since discordance with absolute values may lead to misinterpretation of CBC data. Current Interpretive Data was last revised on 2017. Basophil pct 1.2 % [facility] Comment: Interpretive Data Percent cell count reference ranges are not reported, since discordance with absolute values may lead to misinterpretation of CBC data. Current Interpretive Data was last revised on 2017. Blood 01/22/2024 8:25 PM CDT 01/22/2024 8:50 PM CDT us Susan Nichols MD LAB BLOOD O RDERABLES Final Result [facility] Department [place] [address] * (ABNORMAL) CBC with auto differential (01/22/2024 8:25 PM CDT) WBC 6.5 3.8 - 9.9 K/cumm Hgb 12.0 11.9 - 15.5 g/dL [facility] Hct 38.2 35.6 - 45.5 % [facility] Plt 482(H) 150 - 400 K/cumm [facility] MPV 10.1 9.1 - 12.3 fL [facility] RBC 4.34 3.90 - 5.20 M/cumm [facility] MCV 88.0 81.3 - 96.4 fL [facility] MCH 27.6 27.1 - 33.3 pg [facility] MCHC 31.4(L) 32.3 - 35.7 g/dL [facility] RDW CV 14.4 11.1 - 14.9 % [facility] RDW SD 46.0 35.7 - 48.1 fL [facility] NRBC abs 0.00 0.00 - 0.01 K/cumm [facility] Blood 01/22/2024 8:25 PM CDT 01/22/2024 8:50 PM CDT Susan Nichols MD LAB BLOOD O RDERABLES Final Result [facility] Department [place] [address] documented in this encounter Visit Diagnoses Not on filedocumented in this encounter Care Teams Tie Hacker Relationship Specialty Start Date End Date Enmanuel Gan MD [address] [place] [address] PCP - General Internal Medicine 04/26/20 Tg Houston MD [address] [place] [address] Consulting Physician Cardiology 07/18/20 Guerrero Hunter DPT [address] [facility] [address] [place] [address] Physical Therapist Physical Therapy 11/08/20 Guerrero Weiner, [facility] [address] [facility] [address] [place] [address] Normalizer Physical Therapy 12/12/20 Stephen Barth MD [address] [place] [address] Referring Physician Transplant 10/19/23 documented as of this encounter
--- OUTSIDE RECORDS SUMMARY | 2024-07-12 08:39 | XMS_ITS | Encounter Summary ---
Author Organization [facility] Healthcare Address [address] [place] [address] Care Team Providers Care Ream Cutter Name Role Phone Enmanuel Gan MD Primary Care Provider [phone] Tg Houston MD Unavailable [phone] Guerrero Hunter DPT Unavailable + Guerrero Weiner SUPERVISOR ELECTRONICS PROCESSING Unavailable + Stephen Barth MD Unavailable [phone] Reason for Visit * Auth/Cert (Routine) Specialty Diagnoses / Procedures Referred By Contwolfgang t Referred To Contact Referral ID Status Reason Start Date Expiration Date Visits Re quested Visits Authorized [id number] 1 1 Encounter Details Date Type Department Care Team (Late st Contact Info) Description 01/22/2024 Home Care Visit [facility] [address] [address] [place] [address] Margi Coelho TELEPHONE ENCOUNTER Social History Tobacco Use Types [...] from doctor or pharmacy Never 01/09/2024 [facility] Utilities Answer Date Recorded In [...] attend chur ch or tenriism services? Never 01/07/2024 Do you belong to [...] any time in the past 12 m [facility], were you homeless or living [...] on file Legal Sex Female 9:09 PM SURGERY SPECIALIST Gender Identity Not on file Sexual Orientation Lesbian 05/24/2019 9: 06 AM CDT documented as of this encounter Plan of Treatment Not on file documented as of this encounter Visit Diagnoses Not on filedocumented in this encounter Care Teams Ream Cutter Relationship Specialty Start Date End Date Enmanuel Gan MD [address] [facility] [address] [place] [address] PCP - General Internal Medicine 04/26/20 Tg Houston MD [address] [facility] [address] [place] [address] Consulting Physician Cardiology 07/18/20 Guerrero Hunter DPT [address] [facility] [address] [place] [address] Physical Therapist Physical Therapy 11/08/20 Guerrero Weiner, SUPERVISOR ELECTRONICS PROCESSING [address] [facility] [address] [place] [address] Hematology Nurse Educator Physical Therapy 12/12/20 Stephen Barth MD [address] [facility] [address] [place] [address] Referring Physician Transplant 10/19/23 documented as of this encounter
--- OUTSIDE RECORDS SUMMARY | 2024-07-12 08:39 | XMS_ITS | Encounter Summary ---
Author Organization [facility] Healthcare Address [address] [place] [address] Care Team Providers Care Answerer Name Role Phone Enmanuel Gan MD Primary Care Provider Tg Houston MD Unavailable [phone] Guerrero Hunter DPT Unavailable + Guerrero Weiner VISUAL MERCHANDISER Unavailable + Stephen Barth MD Unavailable [phone] Encounter Details Date Type Department Care Team (Latest Contact Info) Description 01/20/2024 3:15 PM CDT - 01/20/2024 11:59 PM CDT Hospital Encounter [address] [id number] Discharge Disposition: Discharge to home or self [...] materials from doctor or pharmacy Never 01/09/2024 [facility] Utilities Answer Date Recorded In the [...] often do you attend chur ch or orthodoxy services? 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 73 m2 Comment: Interpretive Data [...] interpretive data was last reviewed 2021. Blood 01/20/2024 3:15 PM CDT 01/20/2024 5:54 PM CDT us Notinfile Unknown LAB BLOOD ORDERABLES Final Res ult [facility] Department [place] [address] * Differential, auto (01/20/2024 3:15 PM CDT) Neutrophil abs 5.9 1.5 - 6.5 K/cumm Imm gran abs 0.0 0.0 - 0.1 K/cumm [facility] Lymphocyte abs 1.4 0.8 - 3.3 K/cumm [facility] Monocyte abs 0.5 0.2 - 0.8 K/cumm [facility] Eosinophil abs 0.1 0.0 - 0.5 K/cumm [facility] Basophil abs 0.1 0.0 - 0.1 K/cumm [facility] Neutrophil pct 74.1 % [facility] Comment: Interpretive Data Percent cell count reference ranges are not reported, since discordance with absolute values may lead to misinterpretation of CBC data. Current Interpretive Data was last revised on 2017. Imm gran pct 0.4 % [facility] Comment: Interpretive Data Percent cell count reference ranges are not reported, since discordance with absolute values may lead to misinterpretation of CBC data. Current Interpretive Data was last revised on 2017. Lymphocyte pct 17.8 % [facility] Comment: Interpretive Data Percent cell count reference ranges are not reported, since discordance with absolute values may lead to misinterpretation of CBC data. Current Interpretive Data was last revised on 2017. Monocyte pct 6.1 % [facility] Comment: Interpretive Data Percent cell count reference ranges are not reported, since discordance with absolute values may lead to misinterpretation of CBC data. Current Interpretive Data was last revised on 2017. Eosinophil pct 0.8 % [facility] Comment: Interpretive Data Percent cell count reference ranges are not reported, since discordance with absolute values may lead to misinterpretation of CBC data. Current Interpretive Data was last revised on 2017. Basophil pct 0.8 % [facility] Comment: Interpretive Data Percent cell count reference ranges are not reported, since discordance with absolute values may lead to misinterpretation of CBC data. Current Interpretive Data was last revised on 2017. Blood 01/20/2024 3:15 PM CDT 01/20/2024 5:39 PM CDT us Notinfile Unknown LAB BLOOD ORDERABLES Final Res ult [facility] Department [place] [address] * (ABNORMAL) CBC with auto differential (01/20/2024 3:15 PM CDT) WBC 8.0 3.8 - 9.9 K/cumm Hgb 11.6(L) 11.9 - 15.5 g/dL [facility] Hct 36.8 35.6 - 45.5 % [facility] Plt 472(H) 150 - 400 K/cumm [facility] MPV 10.1 9.1 - 12.3 fL [facility] RBC 4.15 3.90 - 5.20 M/cumm [facility] MCV 88.7 81.3 - 96.4 fL [facility] MCH 28.0 27.1 - 33.3 pg [facility] MCHC 31.5(L) 32.3 - 35.7 g/dL [facility] RDW CV 14.3 11.1 - 14.9 % [facility] RDW SD 45.8 35.7 - 48.1 fL [facility] NRBC abs 0.00 0.00 - 0.01 K/cumm [facility] Blood 01/20/2024 3:15 PM CDT 01/20/2024 5:39 PM CDT us Notinfile Unknown LAB BLOOD ORDERABLES Final Res ult Performing Organization Address [facility]/[place] [facility] [[email or web address]] Co de Phone Number [facility] Department [place] [address] * Glucose, random (Outreach) (01/20/2024 3:15 PM CDT) Glucose 83 70 - 199 mg/dL Comment: Interpretive Data Fasting glucose >/= 126 [...] Current interpretive data was last revised 2022. Blood 01/20/2024 3:15 PM CDT 01/20/2024 5:38 PM CDT us Notinfile Unknown LAB BLOOD ORDERABLES Final Res ult Performing Organization Address [facility] de Phone Number KATIA [facility] Department [place] [address] * Comprehensive metabolic panel, without glucose (Outreach) (01/20/2024 3:15 PM CDT) Sodium 142 135 - 145 mmol/L Potassium, pl 3.8 3.3 - 4.9 mmol/L [facility] Chloride 103 97 - 110 mmol/L [facility] CO2 29 22 - 32 mmol/L [facility] Anion gap 10 2 - 15 mmol/L [facility] BUN 13 6 - 25 mg/dL [facility] Creatinine 0.87 0.60 - 1.10 mg/dL [facility] Calcium 9.7 8.5 - 10.3 mg/dL [facility] Protein, pl 7.3 6.5 - 8.5 g/dL [facility] Albumin 4.1 3.5 - 5.0 g/dL [facility] Bilirubin, total 0.2 0.1 - 1.2 mg/dL [facility] Alk phos 114 40 - 130 Units/L [facility] AST 25 10 - 45 Units/L [facility] ALT 17 7 - 45 Units/L [facility] Blood 01/20/2024 3:15 PM CDT 01/20/2024 5:38 PM CDT us Notinfile Unknown LAB BLOOD ORDERABLES Final Res ult Performing Organization Address City/State/[facility] [[email or web address]] Co de Phone Number [facility] Department [place] [address] documented in this encounter Visit Diagnoses Not on filedocumented in this encounter Care Teams Answerer Relationship Specialty Start Date End Date Enmanuel Gan MD [address] [place] [address] PCP - General Internal Medicine 04/26/20 Tg Houston MD [address] [place] [address] Consulting Physician Cardiology 07/18/20 Guerrero Hunter DPT [address] [facility] [address] [place] [address] Physical Therapist Physical Therapy 11/08/20 Guerrero Weiner, VISUAL MERCHANDISER [address] [facility] [address] [place] [address] Manager Event Physical Therapy 12/12/20 Stephen Barth MD [address] [facility] [address] [place] [address] Referring Physician Transplant 10/19/23 documented as of this encounter
--- OUTSIDE RECORDS SUMMARY | 2024-07-12 08:39 | XMS_ITS | Encounter Summary ---
Author Organization [facility] Healthcare Address [address] [place] [address] Care Team Providers Care Skin Tanner Name Role Phone Enmanuel Gan MD Primary Care Provider [phone] Tg Houston MD Unavailable [phone] Guerrero Hunter DPT Unavailable + Guerrero Weiner RASPBERRY CHECKER Unavailable + Stephen Barth MD Unavailable [phone] Encounter Details Date Type Department Care Team (Latest Contact Info) Description 01/27/2024 11:45 AM CDT - 01/27/2024 11:59 PM CDT Hospital Encounter [address] [id number] Discharge Disposition: Discharge to home or self [...] often do you attend chur ch or hoahaoism services? 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 73 m2 Comment: Interpretive Data [...] interpretive data was last reviewed 2021. Blood 01/27/2024 11:4 5 AM CDT 01/27/2024 4:11 PM CDT us Notinfile Unknown LAB BLOOD ORDERABLES Final Res ult [facility] Department [place] [address] * Differential, auto (01/27/2024 11:45 AM CDT) Neutrophil abs 3.9 1.5 - 6.5 K/cumm Imm gran abs 0.0 0.0 - 0.1 K/cumm [facility] Lymphocyte abs 1.1 0.8 - 3.3 K/cumm [facility] Monocyte abs 0.4 0.2 - 0.8 K/cumm [facility] Eosinophil abs 0.2 0.0 - 0.5 K/cumm [facility] Basophil abs 0.1 0.0 - 0.1 K/cumm [facility] Neutrophil pct 70.4 % [facility] Comment: Interpretive Data Percent cell count reference ranges are not reported, since discordance with absolute values may lead to misinterpretation of CBC data. Current Interpretive Data was last revised on 2017. Imm gran pct 0.2 % [facility] Comment: Interpretive Data Percent cell count reference ranges are not reported, since discordance with absolute values may lead to misinterpretation of CBC data. Current Interpretive Data was last revised on 2017. Lymphocyte pct 19.1 % [facility] Comment: Interpretive Data Percent cell count reference ranges are not reported, since discordance with absolute values may lead to misinterpretation of CBC data. Current Interpretive Data was last revised on 2017. Monocyte pct 6.7 % [facility] Comment: Interpretive Data Percent cell count reference ranges are not reported, since discordance with absolute values may lead to misinterpretation of CBC data. Current Interpretive Data was last revised on 2017. Eosinophil pct 2.7 % [facility] Comment: Interpretive Data Percent cell count reference ranges are not reported, since discordance with absolute values may lead to misinterpretation of CBC data. Current Interpretive Data was last revised on 2017. Basophil pct 0.9 % [facility] Comment: Interpretive Data Percent cell count reference ranges are not reported, since discordance with absolute values may lead to misinterpretation of CBC data. Current Interpretive Data was last revised on 2017. Blood 01/27/2024 11:4 5 AM CDT 01/27/2024 3:31 PM CDT us Notinfile Unknown LAB BLOOD ORDERABLES Final Res ult [facility] [address] [facility] Department [place] [address] * (ABNORMAL) CBC with auto differential (01/27/2024 11:45 AM CDT) WBC 5.5 3.8 - 9.9 K/cumm Hgb 12.5 11.9 - 15.5 g/dL [facility] Hct 39.4 35.6 - 45.5 % [facility] Plt 411(H) 150 - 400 K/cumm [facility] MPV 10.0 9.1 - 12.3 fL [facility] RBC 4.46 3.90 - 5.20 M/cumm [facility] MCV 88.3 81.3 - 96.4 fL [facility] MCH 28.0 27.1 - 33.3 pg [facility] MCHC 31.7(L) 32.3 - 35.7 g/dL [facility] RDW CV 14.1 11.1 - 14.9 % [facility] RDW SD 45.8 35.7 - 48.1 fL [facility] NRBC abs 0.00 0.00 - 0.01 K/cumm [facility] Blood 01/27/2024 11:4 5 AM CDT 01/27/2024 3:31 PM CDT us Notinfile Unknown LAB BLOOD ORDERABLES Final Res ult [facility] Department [place] [address] * (ABNORMAL) Comprehensive metabolic panel (01/27/2024 11:45 AM CDT) Sodium 141 135 - 145 mmol/L Potassium, pl 3.7 3.3 - 4.9 mmol/L [facility] Chloride 102 97 - 110 mmol/L [facility] CO2 31 22 - 32 mmol/L [facility] Anion gap 8 2 - 15 mmol/L [facility] BUN 15 6 - 25 mg/dL [facility] Creatinine 0.80 0.60 - 1.10 mg/dL [facility] Glucose 68(L) 70 - 199 mg/dL [facility] Comment: Interpretive Data Fasting glucose >/= 126 [...] classification and Diagnosis of Diabetes Diabetes Care 202; 46: S19-S40. Current interpretive data was last revised 2022. Calcium 9.4 8.5 - 10.3 mg/dL [facility] Bilirubin, total 0.3 0.1 - 1.2 mg/dL [facility] Protein, pl 7.2 6.5 - 8.5 g/dL [facility] Albumin 4.2 3.5 - 5.0 g/dL [facility] Alk phos 115 40 - 130 Units/L [facility] ALT 21 7 - 45 Units/L [facility] AST 27 10 - 45 Units/L [facility] Blood 01/27/2024 11:4 5 AM CDT 01/27/2024 3:30 PM CDT us Notinfile Unknown LAB BLOOD ORDERABLES Final Res ult [facility] Department [place] [address] documented in this encounter Visit Diagnoses Not on filedocumented in this encounter Care Teams Skin Tanner Relationship Specialty Start Date End Date Enmanuel Gan MD [address] [place] [address] PCP - General Internal Medicine 04/26/20 Tg Houston MD [address] [place] [address] Consulting Physician Cardiology 07/18/20 Guerrero Hunter DPT [address] [facility] [address] [place] [address] Physical Therapist Physical Therapy 11/08/20 Guerrero Weiner, RASPBERRY CHECKER [address] [facility] [address] [place] [address] Predatory Animal Hunter Physical Therapy 12/12/20 Stephen Barth MD [address] [place] [address] Referring Physician Transplant 10/19/23 documented as of this encounter
--- OUTSIDE RECORDS SUMMARY | 2024-07-12 08:39 | XMS_ITS | Encounter Summary ---
Author Organization [facility] Address [address] [place] [address] Phone Care Team Providers Care Senior Scheduler Name Role Phone Enmanuel Gan MD Primary Care Provider [phone] Tg Houston MD Unavailable [phone] Guerrero Hunter DPT Unavailable [phone] Guerrero Weiner LEAD BURNER APPRENTICE Unavailable [phone] Stephen Barth MD Unavailable [phone] Encounter Details Date Type Department Care Team (Late st Contact Info) Description 01/25/2024 Telephone [facility] Infectious Diseases [address] [place] [address] [address] [place] [address] Carolann Gutierrez BS Social History [...] materials from doctor or pharmacy Never 01/09/2024 [facility] Utilities Answer Date Recorded In [...] often do you attend chur ch or rastafarian services? 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 ID follow up scheduled 02/03. * Telephone Encounter - Carolann Gutierrez BS - 01/25/2024 11:47 AM CDT Pt started infusion on January 06 in hospital and recently Stopped infusion on 01/20 Pt is wondering what she needs to do regarding her infection going forward Pt @ [phone] documented in this encounter Plan of Treatment Not on file documented as of this encounter Visit Diagnoses Not on filedocumented in this encounter Care Teams Senior Scheduler Relationship Specialty Start Date End Date Emnanuel Gan MD [address] [facility] [address] [place] [address] PCP - General Internal Medicine 04/26/20 Tg Houston MD [address] [place] [address] Consulting Physician Cardiology 07/18/20 Guerrero Hunter DPT [address] [facility] [address] [place] [address] Physical Therapist Physical Therapy 11/08/20 Guerrero Weiner, [facility] [address] [facility] [address] [place] [address] Visual Effects Artist Physical Therapy 12/12/20 Stephen Barth MD [address] [place] [address] Referring Physician Transplant 10/19/23 documented as of this encounter
--- OUTSIDE RECORDS SUMMARY | 2024-07-12 08:39 | XMS_ITS | Encounter Summary ---
Author Organization [facility] Healthcare Address [address] [place] [address] Care Team Providers Care Manager Action Name Role Phone Enmanuel Gan MD Primary Care Provider [phone] Tg Houston MD Unavailable [phone] Guerrero Hunter DPT Unavailable + Guerrero Weiner CUSHION STUFFER Unavailable [phone] Stephen Barth MD Unavailable [phone] Reason for Visit * Reason Comments Spinal Surgery * Auth/Cert (Routine) Specialty Diagnoses / Procedures Referred By Contac t Referred To Contact Referral ID Status Reason Start Date Expiration Date Visits Re quested Visits Authorized [id number] 1 1 Encounter Details Date Type Department Care Team (Late st Contact Info) Description 02/02/2024 12:00 PM CDT Home Care Visit [facility] [address] [address] [address] [place] [address] Kindra Epps, PT PT REASSESSMENT Social History Tobacco Use Types Packs/Day Years [...] materials from doctor or pharmacy Never 01/09/2024 [facility] Utilities Answer Date Recorded In the [...] often do you attend chur ch or sikh services? Never 01/07/2024 Do you belong to any clubs o r organizations such as zoroastrianism groups, unions, fraternal or athletic groups, or [...] time in the past 12 m [facility], were you homeless or living in a care home (including now)? No 01/07/2024 Personal Safety Answer Date Recorded Have you ever been in or are you currently in a harmful physical or emotional relationship or is someone making you feel afraid or unsafe? 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 Gender Identity Not on file Sexual Orientation Lesbian 05/24/2019 9: 06 AM CDT documented as of this encounter Last Filed Vital Signs Vital Sign Reading Time Taken Comments Blood Pressure 110/60 02/02/2024 12:40 PM CDT Pulse 60 02/02/2024 12:40 PM CDT Temperature 36.4 ??C (97.6 ??F) 02/02/2024 12:40 PM C DT Respiratory Rate 18 02/02/2024 12:40 PM CDT Oxygen Saturation 96% 02/02/2024 12:40 PM CDT Inhaled Oxygen Concentration - - Weight - - Height - - Body Mass Index - - documented in this encounter Miscellaneous Notes * Home Health Visit Narrative - Kindra Epps, PT - 02/02/2024 12:33 PM CDT patient is completing HEP daily, 2 sets of 10 reps each. Patient is walking more but does tire whenwalking longer distances. patient has had some missed visits due to allergic reaction at her port and a household issue with a refrigerator repair. Patient is feeling better overall and is motivated to continue progressing toward goals. documented in this encounter Plan of Treatment Not on file documented as of this encounter Visit Diagnoses Not on filedocumented in this encounter Home Health Visit - Care Plan Visit Details Visit Type -PT Reassessment Discipline -Physical Therapy Problems Problem Description Start Date Status Goals Interve ntions Homebound Status Disciplines: Skilled Disciplines Patient's homebound status 01/09/2024 Active 1 goal linked to scheduled/documen maritza intervention 1 goal intervention scheduled/documen maritza in this visit Monitor patient's vital signs every home health visit Disciplines: SN, PT, OT, PLACEMENT INTERVIEWER, DIRECTOR MEDICARE SALES, Skilled Disciplines Monitor patient's vital signs every [...] infection. 01/09/2024 Active 1 goal linked to scheduled/documen [...] visit during episode of care Description: Home multi disciplined language analyst to measure vital signs during every home [...] and Management Goal:Knowledgeable of Wound Management Scheduled Home Exercise Program (HEP) Description: Instruct patient/caregiver and perform HEP. Problem:PT Orthopedic Completed Bed Mobility/Transfer Training Description: Instruct patient/caregiver and perform bed mobility/transfer training. Problem:PT Orthopedic Completed Cryotherapy Description: Use of cold for pain relief. Instruct patient/caregiver in use of cold to x 15-20 minutes, with 1 hour off between applications. Problem:PT Orthopedic Completed Energy Conservation Education Description: Instruct patient/caregiver in techniques for improved activity tolerance. Problem:PT Activity Tolerance/Energy Conservation Completed documented in this encounter Care Teams Manager Action Relationship Specialty Start Date End Date Enmanuel Gan MD [address] [facility] [address] [place] [address] PCP - General Internal Medicine 04/26/20 Tg Houston MD [address] [facility] [address] [place] [address] Consulting Physician Cardiology 07/18/20 Guerrero Hunter DPT [address] [facility] [address] [place] [address] Physical Therapist Physical Therapy 11/08/20 Guerrero Weiner, CUSHION STUFFER [address] [facility] [address] [place] [address] Bag Loader Machine Operator Physical Therapy 12/12/20 Stephen Barth MD [address] [facility] [address] [place] [address] Referring Physician Transplant 10/19/23 documented as of this encounter
--- OUTSIDE RECORDS SUMMARY | 2024-07-12 08:39 | XMS_ITS | Encounter Summary ---
Author Organization [facility] Healthcare Address [address] [place] [address] Care Team Providers Care Manufacturing Operations Manager Name Role Phone Enmanuel Gan MD Primary Care Provider [phone] Tg Houston MD Unavailable [phone] Guerrero Hunter DPT Unavailable + Guerrero Weiner ENGINEER INTERN Unavailable + Stephen Barth MD Unavailable [phone] Encounter Details Date Type Department Care Team (Late st Contact Info) Description 01/22/[address] [facility] HH Scheduling [address] [place] [address] Resource, Homecare Scheduling Social History Tobacco Use Types Packs/Day Years [...] materials from doctor or pharmacy Never 01/09/2024 [facility] Utilities Answer Date Recorded In the past 12 months has th e Data Ma[employer], gas, oil, or water company threatened to [...] often do you attend chur ch or alevism services? 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 pln documented in this encounter Plan of Treatment Not on file documented as of this encounter Visit Diagnoses Not on filedocumented in this encounter Care Teams Manufacturing Operations Manager Relationship Specialty Start Date End Date Enmanuel Gan MD [address] [facility] [address] [place] [address] PCP - General Internal Medicine 04/26/20 Tg Houston MD [address] [place] [address] Consulting Physician Cardiology 07/18/20 Guerrero Hunter DPT [address] [facility] [address] [place] [address] Physical Therapist Physical Therapy 11/08/20 Guerrero Weiner, ENGINEER INTERN [address] [facility] [address] [place], [place] [id number] Stage Builder Physical Therapy 12/12/20 Stephen Barth MD [address] [facility] [address] [place], [place] [id number] Referring Physician Transplant 10/19/23 documented as of this encounter
--- OUTSIDE RECORDS SUMMARY | 2024-07-12 08:39 | XMS_ITS | Encounter Summary ---
Author Organization [facility] Address [address] [place] [address] Phone Care Team Providers Care Computer Technician Name Role Phone Enmanuel Gan MD Primary Care Provider [phone] Tg Houston MD Unavailable [phone] Guerrero Hunter DPT Unavailable [phone] Guerrero Weiner LOAD TALLIER Unavailable [phone] Stephen Barth MD Unavailable [phone] Reason for Visit * Reason Onset Date Comments OPAT 01/22/2024 Encounter Details Date Type Department Care Team (Late st Contact Info) Description 01/22/2024 Telephone [facility] Infectious Diseases [address] [place] [address] [address] [place] [address] Dorota Ragsdale, LU [address] [place] [address] OPAT Social History Tobacco Use Types Packs/Day [...] materials from doctor or pharmacy Never 01/09/2024 [facility] Utilities Answer Date Recorded In the [...] often do you attend chur ch or synagogue services? Never 01/07/2024 Do you belong to [...] in the past 12 m [facility], were you homeless or [...] on file Legal Sex Female 9:09 PM INSPECTOR FUEL HOSE Gender Identity Not on file Sexual Orientation Lesbian 05/24/2019 9: 06 AM CDT documented as of this encounter Miscellaneous Notes * Telephone Encounter - Dorota Ragsdale NP - 01/22/2024 10:58 AM CDT Received word that patient was Called patient who reports HH changed the [...] she is still having itching under the dressing. No systemic symptoms and no rash to her trunk, thighs, or other locations. Itching is localized. NO n/v/d, CP, SOB or other symptoms. Discussed worrisome symptoms requiring a call back. Called [facility] and requested repeat labs, change the dressing and see about infusing the antibiotic slower. Time Spent: 25 minutes. documented in this encounter Plan of Treatment Not on file documented as of this encounter Visit Diagnoses Not on filedocumented in this encounter Care Teams Computer Technician Relationship Specialty Start Date End Date Enmanuel Gan MD [address] [facility] [address] [place] [address] PCP - General Internal Medicine 04/26/20 Tg Houston MD [address] [place] [address] Consulting Physician Cardiology 07/18/20 Guerrero Hunter DPT [address] [facility] [address] [facility] [place] [address] Physical Therapist Physical Therapy 11/08/20 Guerrero Weiner, [facility] [address] [facility] [place] [address] [place] [address] Water/Wastewater Engineer Physical Therapy 12/12/20 Stephen Barth MD [address] [place] [address] Referring Physician Transplant 10/19/23 documented as of this encounter
--- OUTSIDE RECORDS SUMMARY | 2024-07-12 08:39 | XMS_ITS | Encounter Summary ---
Author Organization [facility] Healthcare Address [address] [place] [address] Care Team Providers Care Fund Development Manager Name Role Phone Enmanuel Gan MD Primary Care Provider [phone] Tg Houston MD Unavailable [phone] Guerrero Hunter DPT Unavailable + Guerrero Weiner CASH REGISTER SERVICER Unavailable [phone] Stephen Barth MD Unavailable [phone] Reason for Visit * Auth/Cert (Routine) Specialty Diagnoses / Procedures Referred By Contac t Referred To Contact Referral ID Status Reason Start Date Expiration Date Visits Re quested Visits Authorized [id number] 1 1 Encounter Details Date Type Department Care Team (Late st Contact Info) Description 01/27/2024 11:45 AM CDT Home Care Visit [facility] [address] [address] [address] [place] [address] Margi Coelho HOME VISIT Social History Tobacco [...] materials from doctor or pharmacy Never 01/09/2024 [facility] Utilities Answer Date Recorded In the past [...] attend chur ch or muslim services? Never 01/07/2024 Do you belong to any clubs o r organizations such as congregational groups, unions, fraternal or athletic groups, or [...] were you homeless or living in a mcfp (including now)? No 01/07/2024 Personal Safety Answer Date Recorded Have you ever been in or are you currently in a harmful physical or emotional relationship or is someone making you feel afraid or unsafe? Denies 01/06/2024 Comments No Sex and Gender Information Value Date Recorded Sex Assigned at Not on file Legal Sex Female 9:09 PM SENIOR COST ESTIMATOR Gender Identity Not on file Sexual Orientation Lesbian 05/24/2019 9: 06 AM CDT documented as of this encounter Last Filed Vital Signs Vital Sign Reading Time Taken Comments Blood Pressure 104/60 01/27/2024 11:24 AM CDT Pulse 63 01/27/2024 11:24 AM CDT Temperature 36.2 ??C (97.2 ??F) 01/27/2024 11:24 AM C DT Respiratory Rate 18 01/27/2024 11:24 AM CDT Oxygen Saturation 96% 01/27/2024 11:24 AM CDT Inhaled Oxygen Concentration - - Weight - - Height - - Body Mass Index - - documented in this encounter Miscellaneous Notes * Home Health Plan for Next Visit - Margi Coelho - 01/27/2024 11:50 AM CDT Reason for today's visit: assessment, lab draw, picc line dressing change Discuss plan of care with patient Discharge planning ongoing Plan for next visit: picc line dressing change, lab draw, assessme documented in this encounter Plan of Treatment Not on file documented as of this encounter Visit Diagnoses Not on filedocumented in this encounter Home Health Visit - Care Plan Visit Details Visit Type -SN Home Visit Discipline -[facility]p Problems Problem Description Start Date Status Goals Interventions Homebound Status Disciplines: Skilled Disciplines Patient's homebound status 01/09/2024 Active 1 goal linked to scheduled/docume nted intervention 1 goal intervention scheduled/documen maritza in this visit Monitor patient's vital signs every home health visit Disciplines: SN, PT, OT, CONTACT LENS EDGE BUFFER, SEED CORE OPERATOR, Skilled Disciplines Monitor patient's vital signs every home health visit. 01/09/2024 Active 1 goal linked to scheduled/docume nted intervention 1 goal intervention scheduled/documen maritza in this visit Collect Specimen/Lab Draw Disciplines: Mcfp Management of specimen samples, including lab draws, stool, urine, sputum & wound cultures 01/13/2024 Active - 3 problem interventions scheduled/documen maritza [...] scheduled/documen maritza in this visit Medications Disciplines: Mcfp Management of IV Medications 01/09/2024 Active - 1 problem intervention scheduled/documen maritza in this visit Safety concerns Disciplines: Mcfp Safety needs related to infusion administration 01/09/2024 Active - 1 problem intervention scheduled/documen maritza in this visit IV Therapy-Manageme nt, Education, and Maintenance Disciplines: Mcfp IV Management, education, and maintenance for home [...] visit during episode of care Description: Home pulping machine operator to measure vital signs during [...] oxygen saturation, respirations. No abnormal findings. Collect lab specimens Description: Obtain CBC stat on 01/22/24 and send to ID. Order received via fax on 01/22/24. Problem:Collect Specimen/Lab Draw Completed Lab and diagnostics per physician order Description: TORB to Srikanth HANEY/ Dr Leslie Valencia/Latisha Hogan,Pharm.D. Following pharmacist Jayda Domingo Draw CBC w/diff MELISSA Problem:Collect Specimen/Lab Draw Completed Collect Specimen/Lab Draw Description: Lab Draw: SN to draw labs CMP/CBC with diff. weekly beginning on 01/23/2024 via PICC (if unable to obtain via line may attempt venipuncture), Results to Padmini Claudio PROPOSAL MANAGER at [phone] Dx M46.26 Problem:Collect Specimen/Lab Draw Completed SN obtained lab of CMP and CBC w/dif from PICC line. Withdrew 10 ml blood for waste then 10 ml blood for lab specimens. Flushed line wiht 10 ml NS and 5 ml heparin. Notified [facility] of lab pick with delivery to [place] (job #[id number]) Results to be sent to Padmini Claudio PROPOSAL MANAGER Educate Family on Infection Prevention Description: Instructed family on signs and symptoms of infection IE: fever, warmth pain, purulent drainage or drainage that has a change in color or odor. Problem:Infection Prevention Goal:Verbalize signs of infection Completed Instructed patient on signs and symptoms of infection to include fever, odor, change in color, and increased drainage. Instructed to notify nurse or MD with signs and symptoms for early intervention. Educate Patient on Infection Prevention Description: Instructed [...] and infusion service Problem:Safety concerns Completed Patient found to be allergic to PICC line dressing change and is now using IV 3000 clear dressing without complicaiton PICC Line Description: PICC Line with one [...] arm. Problem:IV Therapy-Management, Education, and Maintenance Completed Patient refused to have PICC line dressing changed due to just changed 4 days ago. SN to change PICC dressing at next [facility]. IV Management and Education Description: Instruct patient/caregiver [...] complications. Problem:IV Therapy-Management, Education, and Maintenance Completed Patient and significant other independent with iv Rocephin every 24 hours. documented in this encounter Care Teams Fund Development Manager Relationship Specialty Start Date End Date Enmanuel Gan MD [address] [facility] [address] [place], [place] [id number] PCP - General Internal Medicine 04/26/20 Tg Houston MD [address] [place] [address] Consulting Physician Cardiology 07/18/20 Guerrero Hunter DPT [address] [facility] [address] [place] [address] Physical Therapist Physical Therapy 11/08/20 Guerrero Weiner, [facility] [address] [facility] [address] [place] [address] Skilled Nursing Professional Physical Therapy 12/12/20 Stephen Barth MD [address] [place] [address] Referring Physician Transplant 10/19/23 documented as of this encounter
--- OUTSIDE RECORDS SUMMARY | 2024-07-12 08:39 | XMS_ITS | Encounter Summary ---
Author Organization [facility] Healthcare Address [address] [place] [address] Care Team Providers Care Local Area Network Administrator Name Role Phone Enmanuel Gan MD Primary Care Provider [phone] Tg Houston MD Unavailable [phone] Guerrero Hunter DPT Unavailable + Guerrero Weiner VENEER DEPARTMENT MANAGER Unavailable [phone] Stephen Barth MD Unavailable [phone] Encounter Details Date Type Department Care Team (Late st Contact Info) Description 01/22/2024 Orders Only [facility] [address] [place] [address] Latisha Hogan, [facility] Social History Tobacco Use Types Packs/Day Years [...] materials from doctor or pharmacy Never 01/09/2024 [facility] Utilities Answer Date Recorded In [...] any clubs o r organizations such as nondenominational groups, unions, fraternal or athletic groups, or [...] on file Legal Sex Female 9:09 PM VENUE MANAGER Gender Identity Not on file Sexual Orientation Lesbian 05/24/2019 9: 06 AM CDT documented as of this encounter Progress Notes * Latisha Hogan [facility] - 01/22/2024 11:33 AM CDT TORB to Srikanth HANEY/ Dr Leslie Valencia/Latisha Hogan,Pharm.D. Following pharmacist Jayda Blake CBC w/diff MELISSA documented in this encounter Plan of Treatment Not on file documented as of this encounter Visit Diagnoses Not on filedocumented in this encounter Care Teams Local Area Network Administrator Relationship Specialty Start Date End Date Enmanuel Gan MD [address] [place] [address] PCP - General Internal Medicine 04/26/20 Tg Houston MD [address] [facility] [address] [place] [address] Consulting Physician Cardiology 07/18/20 Guerrero Hunter DPT [address] [facility] [address] [place], [place] [id number] Physical Therapist Physical Therapy 11/08/20 Guerrero Weiner, VENEER DEPARTMENT MANAGER [address] [facility] [address] [place], [place] [id number] Certified Peer Specialist Physical Therapy 12/12/20 Stephen Barth MD [address] [facility] [address] [place] [address] Referring Physician Transplant 10/19/23 documented as of this encounter
--- OUTSIDE RECORDS SUMMARY | 2024-07-12 08:39 | XMS_ITS | Encounter Summary ---
Author Organization [facility] Healthcare Address [address] [place] [address] Care Team Providers Care Small Engine Specialist Name Role Phone Enmanuel Gan MD Primary Care Provider [phone] Tg Houston MD Unavailable [phone] Guerrero Hunter DPT Unavailable + Guerrero Weiner B2B MANAGED SERVICE SALES EXEC Unavailable + Stephen Barth MD Unavailable [phone] Reason for Visit * Reason Comments Weakness - Generalized * Auth/Cert (Routine) Specialty Diagnoses / Procedures Referred By Contac t Referred To Contact Referral ID Status Reason Start Date Expiration Date Visits Re quested Visits Authorized [id number] 1 1 Encounter Details Date Type Department Care Team (Late st Contact Info) Description 01/22/2024 4:40 PM CDT Home Care Visit [facility] [address] [address] [place] [address] Salina Carter HOME VISIT Social History Tobacco Use Types [...] often do you attend chur ch or cheondoism services? Never 01/07/2024 Do you belong to [...] on file Legal Sex Female 9:09 PM DATA WAREHOUSE ADMINISTRATOR Gender Identity Not on file Sexual Orientation Lesbian 05/24/2019 9: 06 AM CDT documented as of this encounter Last Filed Vital Signs Vital Sign Reading Time Taken Comments Blood Pressure 118/60 01/22/2024 7:09 PM CDT Pulse 80 01/22/2024 7:09 PM CDT Temperature 36.7 ??C (98.1 ??F) 01/22/2024 7:09 PM CD T Respiratory Rate 18 01/22/2024 7:09 PM CDT Oxygen Saturation 98% 01/22/2024 7:09 PM CDT Inhaled Oxygen Concentration - - Weight - - Height - - Body Mass Index - - documented in this encounter Miscellaneous Notes * Home Health Plan for Next Visit - Salina Carter - 01/22/2024 6:34 PM CDT Reason for today's visit to obtain labs assess picc line site and picc line dressing change Discuss plan of care pt Discharge planning ongoing Plan for next visit labs picc line dressing change documented in this encounter Plan of Treatment Not on file documented as of this encounter Visit Diagnoses Not on filedocumented in this encounter Home Health Visit - Care Plan Visit Details Visit Type -SN Home Visit Discipline -Jail Problems Problem Description Start Date Status Goals Interventions Homebound Status Disciplines: Skilled Disciplines Patient's homebound status 01/09/2024 Active 1 goal linked to scheduled/docume nted intervention 1 goal intervention scheduled/documen maritza in this visit Monitor patient's vital signs every home health visit Disciplines: SN, PT, OT, TEST CAR DRIVER, CHICKEN CATCHER, Skilled Disciplines Monitor patient's vital signs every home health visit. 01/09/2024 Active 1 goal linked to scheduled/docume nted intervention 1 goal intervention scheduled/documen maritza in this visit Collect Specimen/Lab Draw Disciplines: Jail Management of specimen samples, including lab draws, [...] scheduled/documen maritza in this visit Medications Disciplines: Jail Management of IV Medications 01/09/2024 Active - 1 problem intervention scheduled/documen maritza in this visit Safety concerns Disciplines: Jail Safety needs related to infusion administration 01/09/2024 Active - 1 problem intervention scheduled/documen maritza in this visit IV Therapy-Manageme nt, Education, and Maintenance Disciplines: Jail IV Management, education, and maintenance for home [...] visit during episode of care Description: Home recreation officer to measure vital signs during every home [...] appropriate care setting Completed Patient is homebound due to s/p spinal surgery, requiring daily antibiotic via picc line. Pt is at risk for infection requires the assistance of another person to safely leave the home. Monitor Vital Signs Description: Monitor blood pressure, pulse, oxygen saturation, respirations, and temperature. Problem:Monitor patient's vital signs every home health visit Goal:Measure vital signs during every home health visit during episode of care Completed vital signs within normallimits' Collect lab specimens Description: Obtain CBC stat on 01/22/24 and send to ID. Order received via fax on 01/22/24. Problem:Collect Specimen/Lab Draw Completed Sn obtained labs from Rt upper arm PICC line per sterile technique after flushing with 10cc NS, 10cc discard blood obtained, labs collected, flushed with 10cc NS. Pt tolerated without complaints. lab tubes labeled and lab req completed in front of pt and [facility] couriers contacted to transport to [place] for processing. labs ordered to be ran stat #[id number] Lab and diagnostics per physician order Description: [...] concerns Goal:Demonstrate use of safety precautions Completed no falls reported Assess safety Description: Assess patient safety Problem:Safety [...] arm. Problem:IV Therapy-Management, Education, and Maintenance Completed Old picc line dressing carefully removed. Per sterile technique cleansed insertion site with chlorhexidine. Covered with new IV 3000 transparent dressing. using sterile technique changed needless access device. Pt tolerated procedure well. IV Management and Education Description: Instruct patient/caregiver [...] Scheduled documented in this encounter Care Teams Small Engine Specialist Relationship Specialty Start Date End Date Enmanuel Gan MD [address] [place] [address] PCP - General Internal Medicine 04/26/20 Tg Houston MD [address] [place] [address] Consulting Physician Cardiology 07/18/20 Guerrero Hunter DPT [address] [facility] [address] [place] [address] Physical Therapist Physical Therapy 11/08/20 Guerrero Weiner, [facility] [address] [facility] [address] [place] [address] Color Tester Physical Therapy 12/12/20 Stephen Barth MD [address] [place] [address] Referring Physician Transplant 10/19/23 documented as of this encounter
--- OUTSIDE RECORDS SUMMARY | 2024-07-12 08:39 | XMS_ITS | Encounter Summary ---
Author Organization [facility] Healthcare Address [address] [place] [address] Care Team Providers Care Manager Utilization Management Name Role Phone Enmanuel Gan MD Primary Care Provider [phone] Tg Houston MD Unavailable [phone] Guerrero Hunter DPT Unavailable + Guerrero Weiner MEDICAL OFFICE TECHNOLOGY INSTRUCTOR Unavailable +[phone] Stephen Barth MD Unavailable [phone] Reason for Visit * Auth/Cert (Routine) Specialty Diagnoses / Procedures Referred By Contac t Referred To Contact Referral ID Status Reason Start Date Expiration Date Visits Re quested Visits Authorized [id number] 1 1 Encounter Details Date Type Department Care Team (Late st Contact Info) Description 02/02/2024 3:15 PM CDT Home Care Visit [facility] [address] [address] [address] [place] [address] Margi Coelho HOME VISIT Social History Tobacco [...] doctor or pharmacy Never 01/09/2024 [facility] Utilities Answer Date Recorded In the [...] often do you attend chur ch or christianity services? 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 Gender Identity Not on file Sexual Orientation Lesbian 05/24/2019 9: 06 AM CDT documented as of this encounter Last Filed Vital Signs Vital Sign Reading Time Taken Comments Blood Pressure 118/68 02/02/2024 9:16 PM CDT Pulse 74 02/02/2024 9:16 PM CDT Temperature 36.5 ??C (97.7 ??F) 02/02/2024 9:16 PM CD T Respiratory Rate 18 02/02/2024 9:16 PM CDT Oxygen Saturation 97% 02/02/2024 9:16 PM CDT Inhaled Oxygen Concentration - - Weight - - Height - - Body Mass Index - - documented in this encounter Miscellaneous Notes * Home Health Plan for Next Visit - Margi Coelho - 02/02/2024 2:29 PM CDT Reason for today's visit: PICC line dressing change (starting to itch under stat lock), lab draw Discuss plan of care with patient Discharge planning: ongoing Plan for next visit: assessment, picc line dressing change, labs documented in this encounter Plan of Treatment Not on file documented as of this encounter Visit Diagnoses Not on filedocumented in this encounter Home Health Visit - Care Plan Visit Details Visit Type -SN Home Visit Discipline -Senior Care Problems Problem Description Start Date Status Goals Interventions Homebound Status Disciplines: Skilled Disciplines Patient's homebound status 01/09/2024 Active 1 goal linked to scheduled/docume nted intervention 1 goal intervention scheduled/documen maritza in this visit Monitor patient's vital signs every home health visit Disciplines: SN, PT, OT, BIN TRIPPER OPERATOR, VAN DRIVER HELPER, Skilled Disciplines Monitor patient's vital signs every home health visit. 01/09/2024 Active 1 goal linked to scheduled/docume nted intervention 1 goal intervention scheduled/documen maritza in this visit Collect Specimen/Lab Draw Disciplines: Senior Care Management of specimen samples, including lab draws, stool, urine, sputum & wound cultures 01/13/2024 Active - 1 problem intervention scheduled/documen maritza in this visit Multidisciplinar y Case Conference Disciplines: Skilled Disciplines Concurrently discusses plan of treatment and coordinate patient centered care 01/09/2024 Active 1 goal linked to scheduled/docume nted intervention 1 goal intervention scheduled/documen maritza in this visit Infection Prevention Disciplines: Skilled Disciplines Infection Prevention 01/09/2024 Active 1 goal linked to scheduled/docume nted intervention 2 goal interventions scheduled/documen maritza in this visit Safety concerns Disciplines: Skilled Disciplines Alteration in safety 01/09/2024 Active 1 goal linked to scheduled/docume nted intervention 3 goal interventions scheduled/documen maritza in [...] scheduled/documen maritza in this visit Medications Disciplines: Senior Care Management of IV Medications 01/09/2024 Active - 1 problem intervention scheduled/documen maritza in this visit Safety concerns Disciplines: Senior Care Safety needs related to infusion administration 01/09/2024 Active - 1 problem intervention scheduled/documen maritza in this visit IV Therapy-Manageme nt, Education, and Maintenance Disciplines: Senior Care IV Management, education, and maintenance for home [...] visit during episode of care Description: Home cream cheese maker to measure vital signs during every home health visit during episode of care. Monitor patient's vital signs every home health visit No Care team will coordinate care Description: Care team will coordinate care centered on patient needs throughout the episode of care. Multidisciplinary Case Conference No Verbalize signs of infection Description: Patient/caregiver [...] may attempt venipuncture), Results to Padmini Claudio VENEER SAMPLE MAKER at [phone] Dx M46.26 Problem:Collect Specimen/Lab Draw Completed SN flushed single lumen picc line with 10 ml NS. Withdrew 10 ml blood for waste. Withdrew 10 ml blood for labs of cbc w/dif and cmp. Flushed line with 10 ml NS then changed clave connector. IV rocephin 2gm administered over 5 min. Flused line with 10 ml ns and 5 ml heparing. job #[id number] with [employer]. Delivery to [place] Case Conference Description: Care team discuss plan of treatment on a continual basis to provide multidisciplinary team approach to care Problem:Multidiscip [facility] Case Conference Goal:Care team will coordinate care Completed ongoing Educate Family on Infection Prevention Description: Instructed [...] with signs and symptoms for early intervention. Patient voiced good understanding. Educate Patient on Infection Prevention Description: Instructed patient on signs and symptoms of infection IE: fever, warmth pain, purulent drainage or drainage that has a change in color or odor. Problem:Infection Prevention Goal:Verbalize signs of infection Scheduled Instruct Fall Prevention Description: Instruct patient/caregiver in methods to prevent falls Problem:Safety concerns Goal:Demonstrate use of safety precautions Completed Instructed to be mindful of dog when up ambulating with good understanding voiced from patient Assess safety Description: Assess patient safety Problem:Safety concerns Goal:Demonstrate use of safety precautions Completed No falls since last snv. Patient reminded to be mindful of dog when up ambulating Code Status Description: Discuss with patient/caregiver code status Problem:Safety concerns Goal:Demonstrate use of safety precautions Completed patient remains full code Instruct on pain management techniques Description: Instruct in pharmacologic and nonpharmacologic pain management techniques. Problem:Pain Goal:Report that pain has been reduced or controlled Completed Patient denied pain this visit Educate on Wound Care Management Description: Instruct patient/caregiver on wound management including: nutrition and hydration needs for altered skin integrity, signs and symptoms of infection and/or wound deterioration to report to home health agency and or physician. Problem:Wound Education and Management Goal:Knowledgeable of Wound Management Completed Instruct on Medication Management Description: Instruct patient/caregiver in medication administration, purpose, dosages, preparation, scheduling, side effects, food/drug interactions, storage, drug allergies, and potential complications. Problem:Medications Completed Patient has good understanding of medicaiton use, dose, frequency, and purpose Instruct on IV complications Description: Instruct patient/caregiver on how to manage breaks in line, signs/symptoms of complications, who to contact for complications and how to contact the nurse, MD and infusion service Problem:Safety concerns Completed Patient instruced on PICC line complications to include monitoring lines for breaks/kinks with good understanding voiced PICC Line Description: PICC Line with one [...] arm. Problem:IV Therapy-Management, Education, and Maintenance Completed PICC line dressing change performed using sterile technique. Patient c/o itching under stat lock upon nurse arrival. IV Management and Education Description: Instruct patient/caregiver [...] Therapy-Management, Education, and Maintenance Completed Patient and caregiver independent with administration of IV Rocephin 2gm over 5 min and flushing using sash method documented in this encounter Care Teams Manager Utilization Management Relationship Specialty Start Date End Date Enmanuel Gan MD [address] [facility] [address] [place] [address] PCP - General Internal Medicine 04/26/20 Tg Houston MD [address] [facility] [address] [place] [address] Consulting Physician Cardiology 07/18/20 Guerrero Hunter DPT [address] [facility] [address] [facility] [place] [address] Physical Therapist Physical Therapy 11/08/20 Guerrero Weiner, [facility] [id number] [place] [address] Vice President Financial Physical Therapy 12/12/20 Stephen Barth MD [address] [facility] [address] [place] [address] Referring Physician Transplant 10/19/23 documented as of this encounter
--- OUTSIDE RECORDS SUMMARY | 2024-07-12 08:39 | XMS_ITS | Encounter Summary ---
Author Organization [facility] Healthcare Address [address] [place] [address] Care Team Providers Care Lacer And Tier Name Role Phone Enmanuel Gan MD Primary Care Provider [phone] Tg [place] MD Unavailable [phone] Guerrero Hunter DPT Unavailable +[phone] Guerrero Weiner FOUNTAIN CLERK Unavailable +[phone] Stephen Barth MD Unavailable [phone] Reason for Visit * Auth/Cert (Routine) Specialty Diagnoses / Procedures Referred By Contac t Referred To Contact Referral ID Status Reason Start Date Expiration Date Visits Re quested Visits Authorized [id number] 1 1 Encounter Details Date Type Department Care Team (Late st Contact Info) Description 01/20/2024 4:45 PM CDT Home Care Visit [facility] [address] [address] [address] [place] [address] Margi Coelho HOME VISIT Social History Tobacco [...] materials from doctor or pharmacy Never 01/09/2024 [facility] Utilities Answer Date Recorded In the [...] often do you attend chur ch or confucianist services? Never 01/07/2024 Do you belong to any clubs o r organizations such as advent groups, unions, fraternal or athletic groups, or [...] the past [address] 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 Gender Identity Not on file Sexual Orientation Lesbian 05/24/2019 9: 06 AM CDT documented as of this encounter Last Filed Vital Signs Vital Sign Reading Time Taken Comments Blood Pressure 116/82 01/20/2024 3:32 PM CDT Pulse 60 01/20/2024 3:32 PM CDT Temperature 35.6 ??C (96 ??F) 01/20/2024 3:32 PM CDT Respiratory Rate 18 01/20/2024 3:32 PM CDT Oxygen Saturation 97% 01/20/2024 3:32 PM CDT Inhaled Oxygen Concentration - - Weight - - Height - - Body Mass Index - - documented in this encounter Miscellaneous Notes * Home Health Plan for Next Visit - Margi Coelho - 01/20/2024 2:57 PM CDT Reason for today's visit: assessment, PICC line dressing change, lab draw Discuss plan of care with patient Discharge planning: ongoing Plan for next visit: assessment, PICC line dressing change, lab draw documented in this encounter Plan of Treatment Not on file documented as of this encounter Visit Diagnoses Not on filedocumented in this encounter Home Health Visit - Care Plan Visit Details Visit Type -SN Home Visit Discipline -Senior Living Problems Problem Description Start Date Status Goals Interventions Homebound Status Disciplines: Skilled Disciplines Patient's homebound status 01/09/2024 Active 1 goal linked to scheduled/docume nted intervention 1 goal intervention scheduled/documen maritza in this visit Monitor patient's vital signs every home health visit Disciplines: SN, PT, OT, EMT DISPATCHER, COMPUTER SYSTEMS MANAGER, Skilled Disciplines Monitor patient's vital signs every home health visit. 01/09/2024 Active 1 goal linked to scheduled/docume nted intervention 1 goal intervention scheduled/documen maritza in this visit Collect Specimen/Lab Draw Disciplines: Senior Living Management of specimen samples, including lab draws, [...] intervention scheduled/documen maritza in this visit Wound Care Disciplines: Core Disciplines, Skilled Disciplines Wound care needed 01/09/2024 Active 1 goal linked to scheduled/docume nted intervention 1 problem intervention scheduled/documen maritza in this visit Medications Disciplines: Senior Living Management of IV Medications 01/09/2024 Active - 2 problem interventions scheduled/documen maritza in this visit Safety concerns Disciplines: Senior Living Safety needs related to infusion administration 01/09/2024 Active - 1 problem intervention scheduled/documen maritza in this visit IV Therapy-Manageme nt, Education, and Maintenance Disciplines: Senior Living IV Management, education, and maintenance for home [...] visit during episode of care Description: Home loft rigger to measure vital signs during every home [...] health services. Wound Education and Management No Progression towards healing Description: Wound show progression towards healing by 01/23/2024. Wound Care Met Yes Interventions Intervention Associated Problem/Goal Status [...] may attempt venipuncture), Results to Padmini Claudio FIRER LOW PRESSURE at [phone] Dx M46.26 Problem:Collect Specimen/Lab Draw Completed Obtained labs of CMP and CBC w/diff via picc line. FLushed line with 10 ml ns. Withdrew 10ml blood for waste. Flushed line with 10ml NS then patient performed admnistration of Rocephin 2gm syringe over 5 minutes. Patient then flushed line with 10 ml ns and 5 ml ns. [facility] notified for lab lease picker. pile driving supervisor order #[id number] Educate Patient on Infection Prevention Description: Instructed [...] has been reduced or controlled Completed Patient reports no pain this visit Educate on Wound Care Management Description: Instruct patient/caregiver on wound management including: nutrition and hydration needs for altered skin integrity, signs and symptoms of infection and/or wound deterioration to report to home health agency and or physician. Problem:Wound Education and Management Goal:Knowledgeable of Wound Management Scheduled Assess wound Description: Assess and document wound location, size of visible granulation tissue or epithelialization, necrotic tissue, s/s of infection. Assess and document exudate volume, color, consistency, and odor. Problem:Wound Care Completed wound appeas as scar IV Infusion Description: Instruct patient/caregiver on IV Rocephin. Problem:Medications Completed SN observed patient administer Rocephin 2 gm via picc line over 5 minutes daily. Patient had no issues or concerns Instruct on Medication Management Description: Instruct patient/caregiver [...] Education, and Maintenance Completed PICC line dressing changed to RUE using sterile technique. Site cleansed with Chloraprep then tranparent tegaderm dressing applied. Changed extention, needless injector and curros cap. IV Management and Education Description: Instruct patient/caregiver [...] Problem:IV Therapy-Management, Education, and Maintenance Completed Patient educated on monitorin picc line site throughout the day and report any swelling/redness to nurse or md. Patient voiced good understanding documented in this encounter Care Teams Lacer And Tier Relationship Specialty Start Date End Date Enmanuel Gan MD [address] [facility] [address] INTERNAL MEDICINE [place], [place] [id number] PCP - General Internal Medicine 04/26/20 Tg Houston MD [address] [facility] [address] [place] [address] Consulting Physician Cardiology 07/18/20 Guerrero Hunter DPT [address] [facility] [address] [place] [address] Physical Therapist Physical Therapy 11/08/20 Guerrero Weiner, FOUNTAIN CLERK [address] [facility] [address] [place] [address] Child Watch Attendant Physical Therapy 12/12/20 Stephen Barth MD [address] [facility] [address] [place] [address] Referring Physician Transplant 10/19/23 documented as of this encounter
--- OUTSIDE RECORDS SUMMARY | 2024-07-12 08:39 | XMS_ITS | Encounter Summary ---
Author Organization [facility] Address [address] [place] [address] Phone Care Team Providers Care Group Underwriter Name Role Phone Enmanuel Gan MD Primary Care Provider [phone] Tg Houston MD Unavailable [phone] Guerrero Hunter DPT Unavailable [phone] Guerrero Weiner REINFORCED CONCRETE INSPECTOR Unavailable [phone] Stephen Barth MD Unavailable [phone] Reason for Visit * Reason Onset Date Comments OPAT 01/25/2024 Encounter Details Date Type Department Care Team (Late st Contact Info) Description 01/25/2024 Telephone [facility] Infectious Diseases [address] [place] [address] [address] [place] [address] Dorota Ragsdale, LU [address] [place] [address] OPAT Social History Tobacco Use Types Packs/Day [...] materials from doctor or pharmacy Never 01/09/2024 [facility] Utilities Answer Date Recorded In [...] any time in the past 12 m [facility], were you homeless or [...] on file 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 Gender Identity Not on file Sexual Orientation Lesbian 05/24/2019 9: 06 AM CDT documented as of this encounter Miscellaneous Notes * Telephone Encounter - Dorota Ragsdale NP - 01/25/2024 12:15 PM CDT Infectious Disease OPAT Monitoring Note Dx: L1 discitis/osteomyelitis Abx: Ceftriaxone 2 grams IV every 24 hours Duration 6 weeks, can consider early PO switch in clinicafter at least 2 weeks of IV Labs: CBC with diff, CMP, and ESR/CRP Inpt CHEESE FACTORY WORKER/Attg: Orthopedic ID- Ivone Guerrero NP; Annie Outpt: Jewel BARRERA appt: 02/04/24 Discharge date: 01/08/24 HI/Facility: [facility] Home Infusion ([phone]) HH: [facility] Imaging: none Access: PICC FYI: Labs: Date WBC ANC Eos Plt Scrt AST/ALT 01/05 (inpt) 8.1 5.4 0.3 325 0.94 01/12 6.3 4.4 0.2 388 0.89 01/19 8.0 5.9 0.1 475 0.87 01/21 6.5 4.5 0.1 482 Assessment/Plan: 01/24: Called patient to see how she [...] on filedocumented in this encounter Care Teams Group Underwriter Relationship Specialty Start Date End Date Enmanuel Gan MD [address] [facility] [address] [address] [place] [address] PCP - General Internal Medicine 04/26/20 Tg Houston MD [address] [place] [address] Consulting Physician Cardiology 07/18/20 Guerrero Hunter, [place] [address] [facility] [address] [place] [address] Physical Therapist Physical Therapy 11/08/20 Guerrero Weiner, REINFORCED CONCRETE INSPECTOR [address] [facility] [address] [place], [place] [address] Stockroom Worker Physical Therapy 12/12/20 Stephen Barth MD [address] [place] [address] Referring Physician Transplant 10/19/23 documented as of this encounter
--- OUTSIDE RECORDS SUMMARY | 2024-07-12 08:39 | XMS_ITS | Encounter Summary ---
Author Organization [facility] Healthcare Address [address] [place] [address] Care Team Providers Care Technology Analyst Name Role Phone Enmanuel Gan MD Primary Care Provider [phone] Tg Houston MD Unavailable [phone] Guerrero Hunter DPT Unavailable + Guerrero Weiner RESPIRATORY SUPERVISOR Unavailable + Stephen Barth MD Unavailable [phone] Reason for Visit * Auth/Cert (Routine) Specialty Diagnoses / Procedures Referred By Contwolfgang t Referred To Contact Referral ID Status Reason Start Date Expiration Date Visits Re quested Visits Authorized [id number] 1 1 Encounter Details Date Type Department Care Team (Late st Contact Info) Description 01/21/2024 Home Care Visit 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 [address] [place] [address] PCP - General Internal Medicine 04/26/20 Tg Houston MD [address] [facility] [address] [place] [address] Consulting Physician Cardiology 07/18/20 Guerrero Hunter DPT [address] [facility] [address] [place] [address] Physical Therapist Physical Therapy 11/08/20 Guerrero Weiner, RESPIRATORY SUPERVISOR [address] [facility] [address] [place] [address] Director Of Manufacturing Operations Physical Therapy 12/12/20 Stephen Barth MD [address] [facility] [address] [place] [address] Referring Physician Transplant 10/19/23 documented as of this encounter
--- OUTSIDE RECORDS SUMMARY | 2024-07-12 08:39 | XMS_ITS | Encounter Summary ---
Author Organization [facility] Address [address] [place] [address] Care Team Providers Care Warp Scouring Vat Tender Name Role Phone Enmanuel Gan MD Primary Care Provider [phone] Tg Houston MD Unavailable [phone] Guerrero Hunter DPT Unavailable + Guerrero Weiner ANODISER Unavailable + Stephen Barth MD Unavailable [phone] Reason for Visit * Reason Comments Difficulty Walking * Auth/Cert (Routine) Specialty Diagnoses / Procedures Referred By Contac t Referred To Contact Referral ID Status Reason Start Date Expiration Date Visits Re quested Visits Authorized [id number] 1 1 Encounter Details Date Type Department Care Team (Late st Contact Info) Description 01/20/2024 1:00 PM CDT Home Care Visit [facility] [address] [place] [address] Latisha Farnsworth PTA PT HOME VISIT Social History Tobacco Use [...] materials from doctor or pharmacy Never 01/09/2024 [facility] Utilities Answer Date Recorded In [...] any time in the past 12 m [facility], were you homeless or living in [...] on file 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 Gender Identity Not on file Sexual Orientation Lesbian 05/24/2019 9: 06 AM CDT documented as of this encounter Last Filed Vital Signs Vital Sign Reading Time Taken Comments Blood Pressure 122/60 01/20/2024 1:15 PM CDT Pulse 60 01/20/2024 1:15 PM CDT Temperature 36.8 ??C (98.3 ??F) 01/20/2024 1:15 PM CD T Respiratory Rate 18 01/20/2024 1:15 PM CDT Oxygen Saturation 96% 01/20/2024 1:15 PM CDT Inhaled Oxygen Concentration - - Weight - - Height - - Body Mass Index - - documented in this encounter Miscellaneous Notes * Home Health Plan for Next Visit - Latisha Farnsworth, ANODISER - 01/20/2024 1:06 PM CDT Reason for today's visit strength, balance, transfers, gait and safety training. Discuss plan of care with pt who remains agreeable. Updated PT Discharge planning when goals are met, or pt has achieved max therapeutic benefit from Home Care PTservices. Plan for next visit to cont to progress HEP, strength, balance, gait and transfers to facilitate improved functional ability and mobility and to decrease fall risk. documented in this encounter Plan of Treatment [...] home health visit Disciplines: SN, PT, OT, ACCOUNTANT CERTIFIED PUBLIC, SALES SERVICE PROFESSIONAL, Skilled Disciplines Monitor patient's vital signs every [...] Skilled Disciplines Wound care needed 01/09/2024 Active - 1 problem intervention scheduled/documen maritza in this visit PT Orthopedic Disciplines: Physical Therapy Orthopedic aftercare needed due to spinal fusion and revision 01/12/2024 Active - 2 problem interventions scheduled/documen maritza in this visit Goals Goal Associated Problem Outcome Goal Met? Visit Notes Patient receives care at the most appropriate care setting Description: Patient receives care at the most appropriate care setting. Homebound Status No Measure vital signs during every home health visit during episode of care Description: Home food service worker hospital to measure vital signs during every home [...] setting Completed Patient is homebound due to 2/2 infection and pain s/p spinal surgery, resulting in need for daily antibiotic infusion, routing use of marcotics for pain management, limited mobility to around 120' with gait and balance deficits noted, pt requires assist to complete steps, all making leaving the home a taxing effort to safely leave the home Monitor Vital Signs Description: Monitor blood pressure, pulse, oxygen saturation, respirations, and temperature. Problem:Monitor patient's vital signs every home health visit Goal:Measure vital signs during every home health visit during episode of care Completed Monitored patients blood pressure, pulse, oxygen saturation, temp, and respirations during session. Educate Patient on Infection Prevention Description: Instructed patient on signs and symptoms of infection IE: fever, warmth pain, purulent drainage or drainage that has a change in color or odor. Problem:Infection Prevention Goal:Verbalize signs of infection Completed Patient/Caregiver educated on signs and symptoms of infections IE: fever, odor, change in color, increased amount of drainage, purulent drainage,and warmth. Patient and family verbalized unnderstanding of the education. Educate Family on Infection Prevention Description: Instructed family on signs and symptoms of infection IE: fever, warmth pain, purulent drainage or drainage that has a change in color or odor. Problem:Infection Prevention Goal:Verbalize signs of infection Completed family no present for session Instruct Fall Prevention Description: Instruct patient/caregiver in methods to prevent falls Problem:Safety concerns Goal:Demonstrate use of safety precautions Completed Patient and/or caregiver on methods to prevent falls including: removal of throw rugs from the noemi, maintaining pathway clear of tripping hazards and pets, using nightlights, keeping walking areas well lit, use of assistive device for safety, supervision for mobility including enter/exit the home and with stair mobility. Pt verbalized good understanding of instuctions and provides safe verbalization/return demonstration of the instructions. Assess safety Description: Assess patient safety Problem:Safety concerns Goal:Demonstrate use of safety precautions Completed Patient/Caregiver maintains safe enviroment as evident by remaining free from falls and demonstrates use of safety precautions. Instruct on pain management techniques Description: Instruct in pharmacologic and nonpharmacologic pain management techniques. Problem:Pain Goal:Report that pain has been reduced or controlled Completed Patient/Caregiver instructed on pharmacologic and nonpharmacologic pain management techniques. Instructed pt to rest as needed, take medication as prescribed. Educated to call MD office or nurse triage in case of new or worsening pain. Patient/Caregiver verbalizes good understanding of instructions and provides safe verbalization/return demonstration of the instructions. Educate on Wound Care Management Description: Instruct patient/caregiver on wound management including: nutrition and hydration needs for altered skin integrity, signs and symptoms of infection and/or wound deterioration to report to home health agency and or physician. Problem:Wound Education and Management Goal:Knowledgeable of Wound Management Completed Instrcuted patient/caregiver on wound management including: ordered wound care, utilizing clean technique, appropriate hand hygiene, and disposal of dresings. Instructed on nutrition and hydration needs for altered skin integrity, signs of infection and/or wound detoeroration to report to home health agency and/or physician. Assess wound Description: Assess and document wound location, size of visible granulation tissue or epithelialization, necrotic tissue, s/s of infection. Assess and document exudate volume, color, consistency, and odor. Problem:Wound Care Completed Surgical incision assessed and noted to be healing, remains approximanted, not drainage, and not odor and is open to air. Gait/Stair Training Description: Instruct patient/caregiver and perform gait/stair training. Problem:PT Orthopedic Completed Pt. instructed on gait training outright t/o home for distance around 120'. Pt completed gait training with abductor lurch, path deviation, decreased step length, height, heelstrike, and flexed posture. Provided pt with verbal cues to improve technique with pt demonstrating improvement of the instruction/cues provided. Discussion with pt about use of cane until improved strength and stability noted. Therapeutic Exercise Description: Perform therapeutic exercise, progressing as tolerated. Problem:PT Orthopedic Completed Pt. instructed in standing therex 10 reps x 1 set at countertop for bilateral hip flex, and heel raises and added in hip abd t/o small rom, and knee flexion, and single leg stance. Pt. demonstrated understanding of the exercises and instruction provided. documented in this encounter Care Teams Warp Scouring Vat Tender Relationship Specialty Start Date End Date Enmanuel Gan MD [address] [facility] [address] INTER[address] MEDICINE [place] [id number] PCP - General Internal Medicine 04/26/20 Tg Houston MD [address] [facility] [address] [place] [address] Consulting Physician Cardiology 07/18/20 Guerrero Hunter DPT [address] [facility] [address] [place] [address] Physical Therapist Physical Therapy 11/08/20 Guerrero Weiner, ANODISER [address] [facility] [address] [place] [address] Sap Bw Developer Physical Therapy 12/12/20 Stephen Barth MD [address] [facility] [address] [place] [address] Referring Physician Transplant 10/19/23 documented as of this encounter
--- OUTSIDE RECORDS SUMMARY | 2024-07-12 08:40 | XMS_ITS | Encounter Summary ---
Author Organization [facility] Address [address] [place] [address] Phone Care Team Providers Care Taffy Candy Maker Name Role Phone Enmanuel Gan MD Primary Care Provider [phone] Tg Houston MD Unavailable [phone] Guerrero Hunter DPT Unavailable [phone] Guerrero Weiner GREEN CHAIN OFF BEARER Unavailable [phone] Stephen Barth MD Unavailable Karlie Hernandez RN Unavailable [phone] Reason for Referral * Consultation (Routine) - Pending Review Specialty Diagnoses / Procedures Referred By Gigi orosco Referred To Contact Physical Therapy Diagnoses Fusion of spine of thoracolumbar region Jeremy Michelle MD [address] [facility] [address] [place] [address] Phone: tel: fax: [facility] Kobi Anguiano [address] [place] [address] Phone: tel: fax: Referral ID Status Reason Start Date Expiration Date Visits Requested Visits Authorized [id number] Pending Review Specialty Services Required 01/05/2024 02/03/2025 24 24 Question Answer PTRFR PT Evaluate and Treat Therapy options discussed with patient? Yes Location provided for therapy services is: Patient requested/Patient preferred Please select the performing region: External Order [171] To loc/pos [facility] [place] [[id number]] # of visits: 24 Comments Today's date: 01/05/24 Patient Name: Macie Briseno Patient : 1945 Patient (home) Patient Insurance: [employer] Medicare Patient Diagnosis: Positive culture finding (primary encounter diagnosis Physical Therapy Order: Gait training, no bending, lifting >10 or twisting Instructions on what is good and bad for lumbar spine in a back pain patient Instructions on how to stay erect, vertical, and lordotic and avoid flexing, bending over and being horizontal Evaluate and Treatment * Diagnostic Imaging (Routine) - Closed Specialty Diagnoses / Procedures Referred By Gigi t Referred To Contact Diagnoses Lumbar pain Fusion of spine of thoracolumbar region Procedures XR Scoliosis 4 or 5 Views Jeremy Michelle MD [address] [facility] [address] Phone: tel: fax: [facility] Referral ID Status Reason Start Date Expiration Date Visits Re quested Visits Authorized [id number] Closed 01/01/2024 01/30/2025 1 1 Encounter Details Date Type Department Care Team (Late st Contact Info) Description 01/05/2024 7:40 AM CDT Office Visit [facility] Orthopaedic Surgery [address] [facility] 6th [place] [address] [place] [id number] Jeremy Michelle MD [address] [facility] [place] [address] Positive culture finding (Primary Dx); Lumbar pain; Fusion of spine of thoracolumbar region Social History Tobacco Use Types Packs/Day [...] from doctor or pharmacy Never 01/09/2024 [facility] Utilities Answer Date Recorded In [...] any clubs o r organizations such as amish groups, unions, fraternal or athletic groups, or [...] any time in the past 12 m [facility], were you homeless or [...] on file 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 Sincerely, Dr. Jeremy Michelle & Cyndie Byers RN Please contact Dr. Miguel Angel Agee's Nurse if you have any questions. For Mailing information: Attn: Jeremy Michelle/ Cyndie HANEY [facility] Orthopedics [phone] [place] [address] Thoracic and lumbar fusion activity guidelines- 6 weeks - 3 months after surgery Spinal fusion precautions: -No bending or twisting at the waist -No hip flexion more than 90 degrees or crossing the legs -No lifting more than 15lbs -No NSAIDs Activities and exercises: -Continue walking, may now use a treadmill at a comfortable walking pace -If already doing a walking regimen, increase gradually with a goal of 50-100% more at 3 months -If not doing a walking regimen, begin one with a 77-69-lwditv walk and increase to 30 minutes by 3months -Water walking if incision is healed and approved (no swimming for exercise yet) -Recumbent stationary bike -Stair stepper / stair mill -Light arm strengthening -Biceps, triceps (laying in bed), wrist flexion/extension, deltoids -No overhead lifting, no benches/chest presses, no arching/twisting back -Lifting limit of 15lbs still applies Tips and advice: All of the above activities must be done with the spine precautions in mind -Add new activities gradually, no more than 1 per week -If it hurts, stop this activity and wait a few weeks before trying it again -You must use steps to get in/out of pools, no pool ladders -Silvis, more frequent periods of activity and exercise are better tolerated than one long period documented in this encounter Progress Notes * Jeremy Michelle MD - 01/05/2024 7:40 AM CDT Images from the original note were not included. Established Patient Visit Interim History Macie Briseno returns to our office today for follow-up. She is now almost 5 weeks out from surgery. 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 She is done really well since then.She gets some cramping pain but otherwise has been doing well. She had some trouble getting therapyafterwards which I am not sure why that is but notices that she is standing much better. Physical Examination She is intact throughout and ambulating well. 5/5 upper and lower extremities bilaterally incision is well healed Review of Plain Radiographs/Studies Imaging reviewed by me. Excellent alignment overall no sign of complication. On her labs she had a rare pansensitive staph epi result from the L1 scrapings. Impression/Diagnosis/Treatment Plan Doing very well now almost 5 weeks out from above. Films look outstanding she is intact throughout.We are going to write a script for physical therapy for gait training and so she can work on her ambulation. Per her nonunion-- she had a rare staph epi on her L1 scraping cultures that is pansensitive.She was on perioperative Ancef and vanc (pre and postop antibiotics) and had vanc placed directlyin the pedicles at the time of scraping and washing them. We also left off the metal out in this area. Because this is a pansensitive staph epi this could be a contaminant. Given that she did have a nonunion I discussed with her whether we should do 1 round of antibiotics postoperatively as well. There was no metal in this area -- it would be almost treating this like a diskitis type area. But since she had a nonunion and we got something back I think we should treat this with a least 1 round. I think it is probably worth doing if we can do it if especially if there is any chance that it contributing to the nonunion. We discussed this at length all questions were answered. She is going to start the therapy -we are going to see if ID can weigh in today and treat the staph epi for a short course. All questions answered patient agrees with the plan. Addendum: spoke with Infectious Disease and they agree with treating this with antibiotics. But because they would like to treat with IV antibiotics we will need to admit her for a line before starting it. I called the patient's spoke with her and let her know. Jeremy Michelle MD PhD Gut Puller of Orthopaedic Legal ParaprofessionalGut Puller of Neurological Surgery [facility] in [facility], [place] Living Specialist done by [employer]; therefore, variances and inaccuracies may occur. I reviewed the patient problem list pertinent to the visit today, but the entire patient problem list was not reviewed today. documented in this encounter Plan of Treatment Scheduled Referrals Name Type Priority Associated Diagnoses Orde r Schedule Ambulatory referral order to Physical Therapy - Outpatient Referral Routine Fusion of spine of thoracolumbar region Expected: 01/19/2024 (Approximate), Expires: 01/04/2025 documented as of this encounter Results * XR Scoliosis 4 or 5 Views (01/05/2024 7:42 AM CDT) Anatomical Region Laterality Modality Spine N/A Computed Radiogr aphy 01/05/2024 7:53 AM CDT Impressions 01/05/2024 7:53 AM CDT 1. ??Unchanged posterior instrumented fusion of T10 through the pelvis with bilateral iliac screws. The radiology attending physician has personally reviewed this study, and had reviewed and/or edited this written report and agrees with it. Electronically signed by: Greg Gonazlez MD Narrative 01/05/2024 7:53 AM CDT EXAMINATION: XR SCOLIOSIS 4 OR 5 VW HISTORY: ??Lumbar pain. FINDINGS: 6 exposures of the spine are compared against 12/08/2023. No significant scoliotic curvature. ??No coronal imbalance, pelvic obliquity, or sagittal imbalance. ??Bilateral total hip arthroplasties are noted. ??Left subclavian approach pacemaker defibrillator with leads overlying the right atrium and right ventricle. Unchanged posterior instrumented fusion of T10 through the pelvis with bilateral iliac screws. ??Hardware is grossly intact. ??Interbody devices are in place from L2 to S1. Procedure Note Greg Gonzalez MD - 01/05/2024 EXAMINATION: XR SCOLIOSIS 4 OR 5 VW HISTORY: Lumbar pain. FINDINGS: 6 exposures of the spine are compared against 12/08/2023. No significant scoliotic curvature. No coronal imbalance, pelvic obliquity, or sagittal imbalance. Bilateral total hip arthroplasties are noted. Left subclavian approach pacemaker defibrillator with leads overlying the right atrium and right ventricle. Unchanged posterior instrumented fusion of T10 through the pelvis with bilateral iliac screws. Hardware is grossly intact. Interbody devices are in place from L2 to S1. IMPRESSION: 1. Unchanged posterior instrumented fusion of T10 through the pelvis with bilateral iliac screws. The radiology attending physician has personally reviewed this study, and had reviewed and/or edited this written report and agrees with it. Electronically signed by: Greg Gonzalez MD Jeremy Michelle MD IMG XR PROCEDURES Fi nal Result documented in this encounter Visit Diagnoses Diagnosis Positive culture finding- Primary Other nonspecific positive culture findings Lumbar pain Lumbago Fusion of spine of thoracolumbar region Lumbar pain Lumbago Fusion of spine of thoracolumbar region documented in this encounter Orders Consult Count Last Ordered Date First Orde red Date CONSULT TO BONE AND JOINT IN FECTIOUS DISEASE 1 01/05/2024 documented in this encounter Care Teams Taffy Candy Maker Relationship Specialty Start Date End Date Enmanuel Gan MD [address] [facility] [address] [place] [address] PCP - General Internal Medicine 04/26/20 Tg Houston MD [address] [place] [address] Consulting Physician Cardiology 07/18/20 Guerrero Hunter DPT [address] [facility] [address] [place] [address] Physical Therapist Physical Therapy 11/08/20 Guerrero Weiner, [facility] [address] [facility] [address] [place] [address] Boy'S Adviser Physical Therapy 12/12/20 Stephen Barth MD [address] [place] [address] Referring Physician Transplant 10/19/23 Karlie Hernandez RN [address] [facility] [address] [place] [address] SHOP Outpatient Underground Repairer 12/15/23 01/12/24 documented as of this encounter
--- OUTSIDE RECORDS SUMMARY | 2024-07-12 08:40 | XMS_ITS | Encounter Summary ---
Author Organization [facility] Address [address] [place] [address] Phone Care Team Providers Care Burlapper Name Role Phone Enmanuel Gan MD Primary Care Provider Tg Houston MD Unavailable [phone] Guerrero Hunter DPT Unavailable [phone] Guerrero Weiner FORESTRY PROFESSOR Unavailable [phone] Stephen Barth MD Unavailable [phone] Karlie Hernandez RN Unavailable [phone] Encounter Details Date Type Department Care Team (Late st Contact Info) Description 01/05/2024 Telephone [facility] [address] [facility] Advanced Medicine 6th [place] [address] [place] [address] Jeremy Michelle MD [address] [facility] [place] [address] Social History Tobacco Use Types Packs/Day Years Used Date Smoking Tobacco: Never Smokeless Tobacco: Never Alcohol Use Standard Drinks/Week Comments Yes 5 (1 standard drink = 0.6 oz pur e alcohol) [facility] Utilities Answer Date Recorded In the past 12 months has [employer] electric, gas, oil, or water company threatened to shut off services in your home? No 12/15/2023 Social Connection and Isolat ion Panel [NHANES] Answer Date Recorded In a typical week, how many times do you talk on the phone with family, friends, or neighbors? More than three times a week 12/15/2023 How often do you get togethe r with friends or relatives? Twice a week 12/15/2023 How often do you attend chur ch or adventist services? Never 12/15/2023 Do you belong to any clubs o r organizations such as catholic groups, unions, fraternal or athletic groups, or school groups? No 12/15/2023 How often do you attend meet ings of the clubs or organizations you belong to? Never 12/15/2023 Are you , , di vorced, , never , or living with a partner? 12/15/2023 AUDIT-C Answer Date Recorded Q1: How often [...] care, and heating? Not hard at all 12/15/2023 Hunger Vital Sign Answer Date Recorded Within the past 12 months, y ou worried that your food would run out before you got the money to buy more. Never true 12/15/19 24 Within the past 12 months, t he food you bought just didn't last and you didn't have money to get more. Never true 12/15/2023 PRAPARE - Transportation Answer Date Re corded In the past 12 months, has l ack of transportation kept you from medical appointments or from getting medications? No 11/25 In the past 12 months, has l ack of transportation kept you from meetings, work, or from getting things needed for daily living? No 12/15/2023 Housing Stability Vital Sign Answer Ramin e Recorded In the last 12 months, was t here a time when you were not able to pay the mortgage or rent on time? No 12/15/2023 In the past 12 months, how m any times have you moved where you were living? 1 12/15/2023 At any time in the past 12 m [facility], were you homeless or living in a long-term (including now)? No 12/15/2023 Personal Safety Answer Date Recorded Have you ever been in or are you currently in a harmful physical or emotional relationship or is someone making you feel afraid or unsafe? 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 The admitting office will call pt. Pt contacted and is aware. She spoke with on phone to address questions. documented in this encounter Plan of Treatment Not on file documented as of this encounter Visit Diagnoses Not on filedocumented in this encounter Care Teams Burlapper Relationship Specialty Start Date End Date Enmanuel Gan MD [address] [facility] [address] [place] [id number] PCP - General Internal Medicine 04/26/20 Tg Houston MD [address] [facility] [address] [place] [address] Consulting Physician Cardiology 07/18/20 Guerrero Hunter DPT [address] [facility] [address] [place] [address] Physical Therapist Physical Therapy 11/08/20 Guerrero Weiner, FORESTRY PROFESSOR [address] [facility] [address] [place], [place] [id number] Dye Room Helper Physical Therapy 12/12/20 Stephen Barth MD [address] [facility] [address] [place] [address] Referring Physician Transplant 10/19/23 Karlie Hernandez, RN [address] [facility] [address] [place] [address] SHOP Outpatient Councillor [employer] 12/15/23 01/12/24 documented as of this encounter
--- OUTSIDE RECORDS SUMMARY | 2024-07-12 08:40 | XMS_ITS | Encounter Summary ---
Author Organization [facility] Healthcare Address [address] [place] [address] Care Team Providers Care Human Services Professional Name Role Phone Enmanuel Gan MD Primary Care Provider Tg Houston MD Unavailable [phone] Guerrero Hunter DPT Unavailable + Guerrero Weiner TELEVISION PROGRAM DIRECTOR Unavailable + Stephen Barth MD Unavailable [phone] Encounter Details Date Type Department Care Team (Latest Contact Info) Description 01/13/2024 1:20 PM CDT - 01/13/2024 11:59 PM CDT Hospital Encounter [address] [id number] Discharge Disposition: Discharge to home or self [...] or pharmacy Never 01/09/2024 [facility] Utilities Answer Date Recorded In the [...] any clubs o r organizations such as baptism groups, unions, fraternal or athletic groups, or [...] any time in the past 12 m [facility], were you homeless or living [...] on file Legal Sex Female 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 Gender Identity Not on file Sexual Orientation [...] spray 1 spray(s), Nasal, daily, 1 each, [place], 0 08/20/2023 magnesium citrate and oxide (magnesium [...] tablet 2 tablets (2 g total) 08/20/2023 oxyCODONE (ROXICODONE) 10 mg tabletIndications: Pain Take 1 tablet (10 mg total) by mouth every 4 (four) hours as needed for pain for up to 7 days 42 tablet 01/08/2024 4 sodium chloride 0.9% injectionIndicatio ns:PICC line maintenence [...] BY MOUTH TWICE DAILY 180 tablet 1 07/31/2023 4 documented as of this encounter Discharge Disposition Disposition Code Departure Means Destination Discharge to home or self care documented in this encounter Plan of Treatment Not on file documented as of this encounter Procedures Procedure Name Priority Date/Time Associated Diagnosis Comments GLUCOSE, RANDOM (OUTREACH) Routine 01/13/2024 1:20 PM CDT EGFR Routine 01/13/2024 1:20 PM CDT DIFFERENTIAL AUTO Routine 01/13/2024 1:2 0 PM CDT COMPREHENSIVE METABOLIC PANEL WITHOUT GLUCOSE (OUTREACH) Routine 01/13/2024 1:20 PM CDT CBC WITH AUTO DIFFERENTIAL Routine 01/13/2024 1:20 PM CDT documented in this encounter Results * eGFR (01/13/2024 1:20 PM CDT) [facility] eGFR 67 >=60 mL/min/1. 73 m2 Comment: Interpretive Data [...] interpretive data was last reviewed 2021. Blood 01/13/2024 1:20 PM CDT 01/13/2024 5:00 PM CDT us Padmini Claudio NP LAB BLOOD ORDERABLES Geovanna huynh Result [facility] One [facility] [place] [address] * Differential, auto (01/13/2024 1:20 PM CDT) Neutrophil abs 4.4 1.5 - 6.5 K/cumm Imm gran abs 0.0 0.0 - 0.1 K/cumm [facility] Lymphocyte abs 1.2 0.8 - 3.3 K/cumm [facility] Monocyte abs 0.4 0.2 - 0.8 K/cumm [facility] Eosinophil abs 0.2 0.0 - 0.5 K/cumm [facility] Basophil abs 0.1 0.0 - 0.1 K/cumm [facility] Neutrophil pct 69.3 % [facility] Comment: Interpretive Data Percent cell count reference ranges are not reported, since discordance with absolute values may lead to misinterpretation of CBC data. Current Interpretive Data was last revised on 2017. Imm gran pct 0.5 % [facility] Comment: Interpretive Data Percent cell count reference ranges are not reported, since discordance with absolute values may lead to misinterpretation of CBC data. Current Interpretive Data was last revised on 2017. Lymphocyte pct 19.5 % [facility] Comment: Interpretive Data Percent cell count reference ranges are not reported, since discordance with absolute values may lead to misinterpretation of CBC data. Current Interpretive Data was last revised on 2017. Monocyte pct 6.7 % [facility] Comment: Interpretive Data Percent cell count reference ranges are not reported, since discordance with absolute values may lead to misinterpretation of CBC data. Current Interpretive Data was last revised on 2017. Eosinophil pct 3.0 % [facility] Comment: Interpretive Data Percent cell count reference ranges are not reported, since discordance with absolute values may lead to misinterpretation of CBC data. Current Interpretive Data was last revised on 2017. Basophil pct 1.0 % [facility] Comment: Interpretive Data Percent cell count reference ranges are not reported, since discordance with absolute values may lead to misinterpretation of CBC data. Current Interpretive Data was last revised on 2017. Blood 01/13/2024 1:20 PM CDT 01/13/2024 4:31 PM CDT Padmini Claudio PHOTOFINISHING LABORATORY WORKER LAB BLOOD ORDERABLES Geovanna huynh Result [facility] [address] [facility] [place] [address] * (ABNORMAL) CBC with auto differential (01/13/2024 1:20 PM CDT) WBC 6.3 3.8 - 9.9 K/cumm Hgb 10.7(L) 11.9 - 15.5 g/dL [facility] Hct 32.9(L) 35.6 - 45.5 % [facility] Plt 388 150 - 400 K/cumm [facility] MPV 10.2 9.1 - 12.3 fL [facility] RBC 3.69(L) 3.90 - 5.20 M/cumm [facility] MCV 89.2 81.3 - 96.4 fL [facility] MCH 29.0 27.1 - 33.3 pg [facility] MCHC 32.5 32.3 - 35.7 g/dL [facility] RDW CV 14.2 11.1 - 14.9 % [facility] RDW SD 45.8 35.7 - 48.1 fL [facility] NRBC abs 0.00 0.00 - 0.01 K/cumm [facility] Blood 01/13/2024 1:20 PM CDT 01/13/2024 4:31 PM CDT Padmini Claudio PHOTOFINISHING LABORATORY WORKER LAB BLOOD ORDERABLES Geovanna l Result Performing Organization Address City/[facility] de Phone Number [facility] Department [place] [address] * Glucose, random (Outreach) (01/13/2024 1:20 PM CDT) Glucose 85 70 - 199 mg/dL Comment: Interpretive Data [...] interpretive data was last revised 2022. Blood 01/13/2024 1:20 PM CDT 01/13/2024 4:31 PM CDT Padmini Claudio PHOTOFINISHING LABORATORY WORKER LAB BLOOD ORDERABLES Geovanna l Result Performing Organization Address [facility] Co de Phone Number [facility] Department [place] [address] * Comprehensive metabolic panel, without glucose (Outreach) (01/13/2024 1:20 PM CDT) Sodium 141 135 - 145 mmol/L Potassium, pl 4.2 3.3 - 4.9 mmol/L [facility] Chloride 101 97 - 110 mmol/L [facility] CO2 26 22 - 32 mmol/L [facility] Anion gap 14 2 - 15 mmol/L [facility] BUN 14 6 - 25 mg/dL [facility] Creatinine 0.89 0.60 - 1.10 mg/dL [facility] Calcium 9.1 8.5 - 10.3 mg/dL [facility] Protein, pl 7.0 6.5 - 8.5 g/dL [facility] Albumin 3.8 3.5 - 5.0 g/dL [facility] Bilirubin, total 0.2 0.1 - 1.2 mg/dL [facility] Alk phos 117 40 - 130 Units/L [facility] AST 23 10 - 45 Units/L [facility] ALT 21 7 - 45 Units/L [facility] Blood 01/13/2024 1:20 PM CDT 01/13/2024 4:31 PM CDT Padmini Claudio PHOTOFINISHING LABORATORY WORKER LAB BLOOD ORDERABLES Geovanna huynh Result [facility] [address] [facility] Department [place] [address] documented in this encounter Visit Diagnoses Not on filedocumented in this encounter Care Teams Human Services Professional Relationship Specialty Start Date End Date Enmanuel Gan MD [address] [place] [address] PCP - General Internal Medicine 04/26/20 Tg Houston MD [address] [place] [address] Consulting Physician Cardiology 07/18/20 Guerrero Hunter DPT [address] [facility] [address] [place] [address] Physical Therapist Physical Therapy 11/08/20 Guerrero Weiner, TELEVISION PROGRAM DIRECTOR [address] [facility] [address] [place] [address] Emergency Room Nurse Physical Therapy 12/12/20 Stephen Barth MD [address] [facility] [address] [place] [address] Referring Physician Transplant 10/19/23 documented as of this encounter
--- OUTSIDE RECORDS SUMMARY | 2024-07-12 08:40 | XMS_ITS | Encounter Summary ---
Author Organization [facility] Address [address] [place] [address] Phone Care Team Providers Care Electric Milkers Installer Name Role Phone Enmanuel Gan MD Primary Care Provider [phone] Tg Houston MD Unavailable [phone] Guerrero Hunter DPT Unavailable [phone] Guerrero Weiner FRESH WORK INSPECTOR Unavailable [phone] Stephen Barth MD Unavailable [phone] Reason for Visit * Reason Onset Date Comments OPAT 01/18/2024 Encounter Details Date Type Department Care Team (Late st Contact Info) Description 01/18/2024 Documentation [facility] Infectious Diseases [address] [place] [address] [address] [place] [address] Dorota Ragsdale, LU [address] [place] [address] OPAT Social History Tobacco Use Types Packs/Day [...] doctor or pharmacy Never 01/09/2024 [facility] Utilities Answer Date Recorded In the past [...] often do you attend chur ch or anabaptism services? 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 Gender Identity Not on file Sexual Orientation Lesbian 05/24/2019 9: 06 AM CDT documented as of this encounter Progress Notes * Dorota Ragsdale, LU - 01/18/2024 11:12 AM CDT Infectious Disease OPAT Monitoring Note Dx: L1 discitis/osteomyelitis Abx: Ceftriaxone 2 grams IV every 24 hours Duration 6 weeks, can consider early PO switch in clinicafter at least 2 weeks of IV Labs: CBC with diff, CMP, and ESR/CRP Inpt PRICING CLERK/Attg: Orthopedic ID- Ivone Guerrero NP; Annie Outpt: Jewel BARRERA appt: 02/04/24 Discharge date: 01/08/24 HI/Facility: [facility] Home Infusion ([phone]) HH: [facility] Imaging: none Access: PICC FYI: Labs: Date WBC ANC Eos Plt Scrt AST/ALT 01/05 (inpt) 8.1 5.4 0.3 325 0.94 01/12 6.3 4.4 0.2 388 0.89 Assessment/Plan: 01/17: Reviewed summary of treatment note, CM note, and most recent OPAT labs reviewed. No changes to antibiotic regimen. 01/11: No new labs since discharge. Continue ceftriaxone. Time spent: 20 minutes documented in this encounter Plan of Treatment Not on file documented as of this encounter Visit Diagnoses Not on filedocumented in this encounter Care Teams Electric Milkers Installer Relationship Specialty Start Date End Date Enmanuel Gan MD [address] [place] [address] PCP - General Internal Medicine 04/26/20 Tg Houston MD [address] [place] [address] Consulting Physician Cardiology 07/18/20 Guerrero Hunter DPT [address] [facility] [address] [facility] [place] [address] Physical Therapist Physical Therapy 11/08/20 Guerrero Weiner, [facility] [address] [facility] [place] [address] [place] [address] Patient Service Technician Pst Physical Therapy 12/12/20 Stephen Barth MD [address] [place] [address] Referring Physician Transplant 10/19/23 documented as of this encounter
--- OUTSIDE RECORDS SUMMARY | 2024-07-12 08:40 | XMS_ITS | Encounter Summary ---
Author Organization [facility] Healthcare Address [address] [place] [address] Care Team Providers Care Racquet Maker Name Role Phone Enmanuel Gan MD Primary Care Provider [phone] Tg Houston MD Unavailable [phone] Guerrero Hunter DPT Unavailable [phone] Guerrero Weiner EXERCISE EQUIPMENT SPECIALIST Unavailable [phone] Stephen Barth MD Unavailable [phone] Reason for Visit * Auth/Cert (Routine) Specialty Diagnoses / Procedures Referred By Contwolfgang t Referred To Contact Referral ID Status Reason Start Date Expiration Date Visits Re quested Visits Authorized [id number] 1 1 Encounter Details Date Type Department Care Team (Late st Contact Info) Description 01/13/2024 1:30 PM CDT Home Care Visit [facility] [place] [address] [address] [place] [address] Margi Coelho HOME VISIT Social History Tobacco [...] materials from doctor or pharmacy Never 01/09/2024 [facility] Utilities Answer Date Recorded In the [...] in the past 12 m 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 Gender Identity Not on file Sexual Orientation Lesbian 05/24/2019 9: 06 AM CDT documented as of this encounter Last Filed Vital Signs Vital Sign Reading Time Taken Comments Blood Pressure 120/64 01/13/2024 12:49 PM CDT Pulse 60 01/13/2024 12:49 PM CDT Temperature 36.4 ??C (97.5 ??F) 01/13/2024 12:49 PM C DT Respiratory Rate 18 01/13/2024 12:49 PM CDT Oxygen Saturation 99% 01/13/2024 12:49 PM CDT Inhaled Oxygen Concentration - - Weight - - Height - - Body Mass Index - - documented in this encounter Miscellaneous Notes * Home Health Plan for Next Visit - Margi Coelho - 01/13/2024 1:39 PM CDT Reason for today's visit: wound assessment, med ed, lab draw Discuss plan of care patient Discharge planning: ongoing Plan for next visit: picc dressing change, assessment, lab draw documented in this encounter Plan of Treatment Not on file documented as of this encounter Visit Diagnoses Not on filedocumented in this encounter Home Health Visit - Care Plan Visit Details Visit Type -SN Home Visit Discipline -Longterm Problems Problem Description Start Date Status Goals Interventions Homebound Status Disciplines: Skilled Disciplines Patient's homebound status 01/09/2024 Active 1 goal linked to scheduled/docume nted intervention 1 goal intervention scheduled/documen maritza in this visit Monitor patient's vital signs every home health visit Disciplines: SN, PT, OT, ROUGH PATCHER, TECHNICAL SERVICES ANALYST, Skilled Disciplines Monitor patient's vital signs every home health visit. 01/09/2024 Active 1 goal linked to scheduled/docume nted intervention 1 goal intervention scheduled/documen maritza in this visit Collect Specimen/Lab Draw Disciplines: Longterm Management of specimen samples, including lab draws, [...] scheduled/documen maritza in this visit Medications Disciplines: Longterm Management of IV Medications 01/09/2024 Active - 1 problem intervention scheduled/documen maritza in this visit Safety concerns Disciplines: Longterm Safety needs related to infusion administration 01/09/2024 Active - 1 problem intervention scheduled/documen maritza in this visit IV Therapy-Manageme nt, Education, and Maintenance Disciplines: Longterm IV Management, education, and maintenance for home [...] visit during episode of care Description: Home cow trimmer to measure vital signs during every home [...] may attempt venipuncture), Results to Padmini Claudio MONOGRAM OPERATOR at [phone] Dx M46.26 Problem:Collect Specimen/Lab Draw Completed lab of cbc, cmp obtained via picc line. notified [employer] for medicinal plant picker (#331) Educate Patient on Infection Prevention Description: Instructed [...] signs and symptoms for early intervention. Educate Family on Infection Prevention Description: Instructed [...] color, consistency, and odor. Problem:Wound Care Completed open to air, no issues Instruct on Medication Management Description: Instruct patient/caregiver [...] Scheduled documented in this encounter Care Teams Racquet Maker Relationship Specialty Start Date End Date Enmanuel Gan MD [address] [facility] [address] INTER[address] MEDICINE [place], [place] [id number] PCP - General Internal Medicine 04/26/20 Tg Houston MD [address] [place] [address] Consulting Physician Cardiology 07/18/20 Guerrero Hunter DPT [address] [facility] [address] [facility] [place] [address] Physical Therapist Physical Therapy 11/08/20 Guerrero Weiner, [facility] [address] [place] [address] [place] [address] Bias Machine Operator Physical Therapy 12/12/20 Stephen Barth MD [address] [place] [address] Referring Physician Transplant 10/19/23 documented as of this encounter
--- OUTSIDE RECORDS SUMMARY | 2024-07-12 08:40 | XMS_ITS | Encounter Summary ---
Author Organization [facility] Healthcare Address [address] [place] [address] Care Team Providers Care Bank Examiner Name Role Phone Enmanuel Gan MD Primary Care Provider [phone] Tg Houston MD Unavailable [phone] Guerrero Hunter DPT Unavailable [phone] Guerrero Weiner SALES PERFORMANCE MANAGER Unavailable +[phone] Stephen Barth MD Unavailable [phone] Karlie Hernandez RN Unavailable [phone] Reason for Visit * Reason Comments Post-op Spine Surgery * Auth/Cert (Routine) Specialty Diagnoses / Procedures Referred By Contac t Referred To Contact Referral ID Status Reason Start Date Expiration Date Visits Re quested Visits Authorized [id number] 1 1 Encounter Details Date Type Department Care Team (Latest Contact Info) Description 01/12/2024 9:00 AM CDT Home Care Visit [facility] [address] [address] [address] [place] [address] Kindra Epps, PT PT INITIAL EVALUATION Social History Tobacco Use Types Packs/Day Years [...] materials from doctor or pharmacy Never 01/09/2024 [facility] Utilities Answer Date Recorded In the [...] often do you attend chur ch or pentecostal services? Never 01/07/2024 Do you belong to any clubs o r organizations such as rastafarian groups, unions, fraternal or athletic groups, or [...] on file Legal Sex Female 9:09 PM BUSINESS EXCELLENCE MANAGER Gender Identity Not on file Sexual Orientation Lesbian 05/24/2019 9: 06 AM CDT documented as of this encounter Last Filed Vital Signs Vital Sign Reading Time Taken Comments Blood Pressure 114/62 01/12/2024 12:00 AM CDT Pulse 64 01/12/2024 12:00 AM CDT Temperature 36 ??C (96.8 ??F) 01/12/2024 12:00 AM CDT Respiratory Rate 18 01/12/2024 12:00 AM CDT Oxygen Saturation 98% 01/12/2024 12:00 AM CDT Inhaled Oxygen Concentration - - Weight - - Height - - Body Mass Index - - documented in this encounter Miscellaneous Notes * Home Health Visit Narrative - Kindra Epps, PT - 01/12/2024 9:44 AM CDT SUBJECTIVE Patient is referred to 01/06/2024 to 01/08/2024 for infection of lumbar spine following a hospitalization from 12/02/2023 to 12/14/2023 for surgery on 12/02/2023 for posterior spinal instrumented fusion revision [id number] with posterior column osteotomies T12/L1 and L1/2, exploration of fusion, removal of hardware, autograft, allograft, bone morphogentic protein, and spinal cord monitoring. Patient's primary complaint is difficulty with walking, back pain and tightness. BACKGROUND PMH includes multiple spine surgeries (2016, 2017, 2018, 2019,2023) including revision and fusion L1-L4 in 06/2020, fusion of L2-L3, recent revision with extension of T10 to pelvis 12/2023 , CAD, HTN, HLD, a.fib (2019), microvascular angina, allergic rhinitis, pre-diabetes, OA, DJD, osteoporosis, peripheral neuropathy, mixed conductive and sensorineural hearing loss, tinnitus, auditory vertigo, Meniere's disease, depression, anxiety, B GRAEME 2013, L vestibular nerve section, L cochlear implant (05/2020), ICD (05/2021), cholecystectomy PLOF includes modified ind for transfers and gait over moderate distances. Patient was active in the community but admits to difficulty with walking since April 2023. ASSESSMENT Patient has significant weakness in R > L LE, acute on chronic pain, altered gait pattern, and SOB with activity. PLAN Patient to be seen 2wk4, eff 01/12/2024 to address pain/pain management, strengthening, transfer training, balance training, gait training and establishment and upgrade of HEP. documented in this encounter Plan of Treatment Not on file documented as of this encounter Visit Diagnoses Not on filedocumented in this encounter Home Health Visit - Care Plan Visit Details Visit Type -PT Initial Evalu ation Discipline -Physical Therapy Problems Problem Description Start Date Status Goals Interve ntions Homebound Status Disciplines: Skilled Disciplines Patient's homebound status 01/09/2024 Active 1 goal linked to scheduled/documen maritza intervention 1 goal intervention scheduled/documen maritza in this visit Monitor patient's vital signs every home health visit Disciplines: SN, PT, OT, STRUCTURAL ENGINEERING TECHNICIAN, DENIAL MANAGEMENT REPRESENTATIVE, Skilled Disciplines Monitor patient's vital signs every [...] spinal fusion and revision 01/12/2024 Active - 6 problem interventions scheduled/documen maritza in this visit [...] visit during episode of care Description: Home nurse clinician to measure vital signs during every [...] volume, color, consistency, and odor. Problem:Wound Care Scheduled Elimination Description: Assess elimination and instruct patient/caregiver on bowel regimen related to taking pain medication. Problem:PT Orthopedic Completed Edema Control and Correct Elevation/Positioning Description: Assess edema and instruct patient/caregiver on edema control Problem:PT Orthopedic Completed Home Exercise Program (HEP) Description: Instruct [...] Completed documented in this encounter Care Teams Bank Examiner Relationship Specialty Start Date End Date Enmanuel Gan MD [address] [facility] [address] INTERNAL MEDICINE [place], [place] [id number] PCP - General Internal Medicine 04/26/20 Tg Houston MD [address] [facility] [address] [place] [address] Consulting Physician Cardiology 07/18/20 Guerrero Hunter DPT [address] [facility] [address] [place] [address] Physical Therapist Physical Therapy 11/08/20 Guerrero Weiner, SALES PERFORMANCE MANAGER [address] [facility] [address] [place] [address] Turfgrass Management Professor Physical Therapy 12/12/20 Stephen Barth MD [address] [place] [address] Referring Physician Transplant 10/19/23 Karlie Hernandez, RN [address] [facility] [address] [place] [address] SHOP Outpatient Events Specialist 12/15/23 01/12/24 documented as of this encounter
--- OUTSIDE RECORDS SUMMARY | 2024-07-12 08:40 | XMS_ITS | Encounter Summary ---
Author Organization [facility] Address [address] [place] [address] Phone Care Team Providers Care Family Day Care Worker Name Role Phone Enmanuel Gan MD Primary Care Provider [phone] Tg Houston MD Unavailable [phone] Guerrero Hunter DPT Unavailable [phone] Guerrero Weiner FIRE DEPARTMENT BATTALION CHIEF Unavailable [phone] Stephen Barth MD Unavailable Karlie Hernandez RN Unavailable [phone] Reason for Visit * Reason Onset Date Comments Admit Notification 01/06/2024 Encounter Details Date Type Department Care Team (Late st Contact Info) Description 01/06/2024 Telephone [facility] Orthopaedic Surgery Pending sale to [facility] Advanced Medicine 6th [place] [address] [place] [id number] Jeremy Michelle MD [address] [facility] [place] [address] Admit Notification Social History Tobacco Use Types Packs/Day Years Used Date Smoking Tobacco: Never Smokeless Tobacco: Never Alcohol Use Standard Drinks/Week Comments Yes 5 (1 standard drink = 0.6 oz pur e alcohol) [facility] Utilities Answer Date Recorded In the past 12 months has th e electric, gas, oil, or water [employer] threatened to shut off services in your [...] often do you attend chur ch or presybeterian services? Never 01/07/2024 Do you belong to [...] any time in the past 12 m [facility], were you homeless or living in a [...] on file Legal Sex Female 9:09 PM NURSE TRANSITION Gender Identity Not on file Sexual Orientation Lesbian 05/24/2019 9: 06 AM CDT documented as of this encounter Miscellaneous Notes * Telephone Encounter - Cyndie Byers RN - 01/06/2024 12:39 PM CDT Spoke with Fabiana in patient reservations at [facility] to check bad status. She stated they are waiting on people to d/c. Spoke to pt. Patient is going to come in to wait for bed and states she will be here about 1pm. States she will call office with any questions. documented in this encounter Plan of Treatment Not on file documented as of this encounter Visit Diagnoses Not on filedocumented in this encounter Care Teams Family Day Care Worker Relationship Specialty Start Date End Date Enmanuel Gan MD [address] INTERNAL MEDICINE [place], [place] [id number] PCP - General Internal Medicine 04/26/20 Tg Houston MD [address] [facility] [address] [place] [address] Consulting Physician Cardiology 07/18/20 Guerrero Hunter, REMINGTON [address] [facility] [address] [place] [address] Physical Therapist Physical Therapy 11/08/20 Guerrero Weiner, FIRE DEPARTMENT BATTALION CHIEF [address] [facility] [address] [place] [address] Pulp Maker Physical Therapy 12/12/20 Stephen Barth MD [address] [facility] [address] [place], [place] [id number] Referring Physician Transplant 10/19/23 Karlie Hernandez, RN [address] [facility] [address] [place], [place] [id number] SHOP Outpatient Vp Of Marketing 12/15/23 01/12/24 documented as of this encounter
--- OUTSIDE RECORDS SUMMARY | 2024-07-12 08:40 | XMS_ITS | Encounter Summary ---
Author Organization [facility] Healthcare Address [address] [place] [address] Care Team Providers Care Crown And Bridge Technician Name Role Phone Enmanuel Gan MD Primary Care Provider [phone] Tg Houston MD Unavailable [phone] Guerrero Hunter DPT Unavailable [phone] Guerrero Weiner CANDLE WRAPPER Unavailable [phone] Stephen Barth MD Unavailable [phone] Karlie Hernandez RN Unavailable [phone] Reason for Referral * Diagnostic Imaging (Routine) - Closed Specialty Diagnoses / Procedures Referred By Contac t Referred To Contact Diagnoses Lumbar pain Fusion of spine of thoracolumbar region Procedures XR Scoliosis 4 or 5 Views Jeremy Michelle MD [address] [place] [address] Phone: tel: fax: [facility] Referral ID Status Reason Start Date Expiration Date Visits Re quested Visits Authorized [id number] Closed 01/01/2024 01/30/2025 1 1 Reason for Visit * Auth/Cert Specialty Diagnoses / Procedures Referred By Contac t Referred To Contact Diagnoses INFECTIOUS DISEASE CONSULT Procedures n/a Referral ID Status Reason Start Date Expiration Date Visits Re quested Visits Authorized [id number] 1 1 Encounter Details Date Type Department Care Team (Latest Contact Info) Description 01/05/2024 7:00 AM CDT - 01/05/2024 11:59 PM CDT Hospital Encounter [facility] [address] [place] [address] Lumbar pain; Fusion of spine of thoracolumbar region Discharge Disposition: Discharge to home or self care Social History Tobacco Use Types Packs/Day Years Used Date Smoking Tobacco: Never Smokeless Tobacco: Never Alcohol Use Standard Drinks/Week Comments Yes 5 (1 standard drink = 0.6 oz pur e alcohol) [facility] Utilities Answer Date Recorded In the [...] often do you attend chur ch or orthodox services? Never 12/15/2023 Do you belong to any clubs o r organizations such as christianity groups, unions, fraternal or athletic groups, or [...] in a skilled nursing (including now)? No 12/15/2023 Personal Safety Answer Date Recorded Have you ever been in or are you currently in a harmful physical or emotional relationship or is someone making you feel afraid or unsafe? Denies 01/06/2024 Comments No Sex and Gender Information Value Date Recorded Sex Assigned at Not on file Legal Sex Female 9:09 PM STEP FINISHER Gender Identity Not on file Sexual Orientation Lesbian 05/24/2019 9: 06 AM CDT documented as of this encounter Medications at Time of Discharge acetaminophen 500 mg capsuleIndication s:Pain Take 2 capsules (1,000 mg total) by mouth every 6 (six) hours as needed for pain 01/08/2024 amiodarone (PACERONE) 200 mg tabletIndications :Prevention of Recurrent Atrial Fibrillation [The details of the medication are not available because there are pending changes by a home health clinician.] 30 tablet 12/14/2023 atorvastatin (LIPITOR) 20 mg tabletIndications :hyperlipidemia Take 1 tablet (20 mg total) by mouth nightly 07/29/2018 azelastine (ASTELIN) 137 mcg (0.1 %) nasal spray spray(s), 0 08/20/[address] (CYMBALTA) 60 mg capsuleIndication s:Anxiety with Depression Take 1 capsule (60 mg total) by mouth every morning 03/11/2023 Eliquis 5 mg tabletIndications :atrial fibrillation DO NOT TAKE THIS MEDICATION UNTIL AFTER YOU COMPLETE YOUR LOVENOX INJECTIONS (JANUARY 14, 2024). ON JANUARY 14, 2024 YOU MAY RESUME TAKING 5MG BY MOUTH TWICE A DAY. 01/08/2024 fexofenadine-pseu doephedrine (Kimberly-D 12 Hour) 60-120 mg per 12 hr tablet flutic tablet(s), 0 08/20/2023 fluticasone propionate (FLONASE) 50 mcg/actuation nasal spray 1 spray(s), Nasal, daily, 1 each, [place], 0 08/20/2023 furosemide (LASIX) 40 mg tabletIndications :Peripheral Edema due to Chronic Heart Failure [The details of the medication are not available because there are pending changes by a home health clinician.] 60 tablet 12/14/2023 methocarbamoL (ROBAXIN) 750 mg tabletIndications :Muscle Spasm Take 1 tablet (750 mg total) by mouth every 8 (eight) hours 90 tablet 2 01/05/2024 sucralfate (Carafate) 1 gram tablet 2 tablets (2 g total) 08/20/2023 enoxaparin (LOVENOX) 40 mg/0.4 mL syringeIndication s:Deep Vein Thrombosis Prevention Inject 0.4 mL (40 mg total) under the skin daily for 5 days 2 mL 01/08/2024 4 oxyCODONE (ROXICODONE) 10 mg tabletIndications :Pain Take 1 tablet (10 mg total) by mouth every 4 (four) hours as needed for pain for up to 7 days 42 tablet 01/08/2024 4 acetaminophen 500 mg capsuleIndication s:Pain,Pain Take 2 capsules (1,000 mg total) by mouth every 6 (six) hours 90 tablet 12/14/2023 4 alendronate (FOSAMAX) 70 mg tabletIndications :Post-Menopausal Osteoporosis Take 1 tablet (70 mg total) by mouth every 7 days Thursday08/18/2023 4 ALPRAZolam (XANAX) 0.25 mg tablet Take 1 tablet (0.25 mg total) by mouth nightly as needed for anxiety 30 tablet 01/05/2024 4 azelastine (ASTELIN) 137 mcg (0.1 %) nasal sprayIndications: Seasonal Allergic Rhinitis Administer 1 spray into each nostril 2 (two) times a day as needed for rhinitis or allergies 12/30/2021 4 cefTRIAXone (ROCEPHIN) syringeIndication s:Bone/Joint Infection [The details of the medication are not available because there are pending changes by a home health clinician.] 01/09/2024 4 CHOLECALCIFEROL, VITAMIN D3, ORALIndications:s upplement Take 1 tablet by mouth every morning 4 Eliquis 5 mg tabletIndications :atrial fibrillation DO NOT TAKE THIS MEDICATION UNTIL JANUARY 03, 2024. ON JANUARY 03, 2024 YOU MAY RESUME TAKING 5MG BY MOUTH TWICE A DAY. 12/14/2023 4 fexofenadine-pseu doephedrine (KIMBERLY-D) 60-120 mg per 12 hr tabletIndications :Allergic Rhinitis Take 1 tablet by mouth 2 (two) times a day as needed for allergies 4 fluticasone (FLONASE) 50 mcg/actuation nasal spray inhale 1 spray (50MCG) by intranasal route every day in each nostril 0 06/15/2012 4 lidocaine (ASPERCREME) 4 % adhesive patch,medicated Place 2 patches on the skin daily Do not place on or around surgical incision. 10 patch 12/15/2023 4 metoprolol tartrate (LOPRESSOR) 25 mg immediate release tabletIndications :Atrial Arrhythmia TAKE 1 TABLET(25 MG) BY MOUTH TWICE DAILY 180 tablet 1 07/31/2023 4 multivitamin with folic acid 400 mcg tablet Take 1 tablet by mouth daily 12/15/2023 4 oxyCODONE (ROXICODONE) 10 mg tabletIndications :Pain Take 1 tablet (10 mg total) by mouth every 6 (six) hours as needed for pain 01/06/2024 4 senna-docusate (PERICOLACE) 8.6-50 mgIndications:con stipation Take 2 tablets by mouth 2 (two) times a day as needed for constipation Do not take if you experience diarrhea 60 tablet 12/14/2023 documented as of this encounter Discharge Disposition Disposition Code Departure Means Destination Discharge to home or self care documented in this encounter Plan of Treatment Not on file documented as of this encounter Procedures Procedure Name Priority Date/Time Associated Diagnosis Comments XR SCOLIOSIS 4 OR 5 VW Schedule Routine, Read Routine (OP Routine) 01/05/2024 7:42 AM CDT Lumbar pain Fusion of spine of thoracolumbar region documented in this encounter Results * [...] it. Electronically signed by: Greg Gonzalez MD Narrative 01/05/2024 7:53 AM CDT EXAMINATION: [...] it. Electronically signed by: Greg Gonzalez MD us Jeremy Michelle MD IMG XR PROCEDURES Fi nal Result documented in this encounter Visit Diagnoses Diagnosis Lumbar pain Lumbago Fusion of spine of thoracolumbar region documented in this encounter Care Teams Crown And Bridge Technician Relationship Specialty Start Date End Date Enmanuel Gan MD [address] [facility] [address] INTERNAL MEDICINE [place], [place] [id number] PCP - General Internal Medicine 04/26/20 Tg Houston MD [address] [place] [address] Consulting Physician Cardiology 07/18/20 Guerrero Hunter DPT [address] [facility] [address] [place] [address] Physical Therapist Physical Therapy 11/08/20 Guerrero Weiner, CANDLE WRAPPER [address] [facility] [address] [place] [address] Furnace Converter Physical Therapy 12/12/20 Stephen Barth MD [address] [place] [address] Referring Physician Transplant 10/19/23 Karlie Hernandez RN [address] [facility] [address] [place] [address] SHOP Outpatient Automobile Or Truck Rental Dispatcher 12/15/23 01/12/24 documented as of this encounter
--- OUTSIDE RECORDS SUMMARY | 2024-07-12 08:40 | XMS_ITS | Encounter Summary ---
Author Organization [facility] Healthcare Address [address] [place] [address] Care Team Providers Care Senior Compensation Consultant Name Role Phone Enmanuel Gan MD Primary Care Provider [phone] Tg Houston MD Unavailable [phone] Guerrero Hunter DPT Unavailable [phone] Guerrero Weiner PROPERTY MANAGEMENT ASSISTANT Unavailable [phone] Stephen Barth MD Unavailable [phone] Karlie Hernandez RN Unavailable [phone] Reason for Visit * Reason Comments Successfully Completed Encounter Details Date Type Department Care Team (Late st Contact Info) Description 12/30/2023 SHOP/CHAP Subsequent Outreach [facility] OP CASE MANAGEMENT [address] [place] [id number] Karlie eHrnandez, RN [address] [facility] [address] [place] [address] Social History Tobacco Use Types Packs/Day Years Used Date Smoking Tobacco: Never Smokeless Tobacco: Never Alcohol Use Standard Drinks/Week Comments Yes 5 (1 standard drink = 0.6 oz pur e alcohol) [facility] Utilities Answer Date Recorded In [...] often do you attend chur ch or pentecostalism services? Never 12/15/2023 Do you belong to [...] in a group home (including now)? No 12/15/2023 Personal Safety Answer Date Recorded Have you ever been in or are you currently in a harmful physical or emotional relationship or is someone making you feel afraid or unsafe? Denies 12/03/2023 Comments No Sex and Gender Information Value Date Recorded Sex Assigned at Not on file Legal Sex Female 9:09 PM SUPERINTENDENT GENERAL Gender Identity Not on file Sexual Orientation Lesbian 05/24/2019 9: 06 AM CDT documented as of this encounter Progress Notes * Karlie Hernandez RN - 12/30/2023 1:55 PM CDT Weekly SHOP call. Patient reports feeling well at this time. Patient states incision is healing well and steri strips have all fallen off. Patient reports her pain level has decreased and she is ableto take less pain medication. Patient states she is working with her PCP to initiate HH services. [facility] unable to accept due to staffing, and patient states PCP sent referral to [facility]. Patientintends to follow up with her PCP to check on status of referral. Patient is aware of post op appointment on 01/04 and confirms she will have transportation. Patient has no questions or concerns at this time. Reviewed [facility] phone number and encouraged patient to call with any needs. documented in this encounter Plan of Treatment Not on file documented as of this encounter Visit Diagnoses Not on filedocumented in this encounter Care Teams Senior Compensation Consultant Relationship Specialty Start Date End Date Enmanuel Gan MD [address] [place] [address] PCP - General Internal Medicine 04/26/20 Tg Houston MD [address] [place] [address] Consulting Physician Cardiology 07/18/20 Guerrero Hunter DPT [address] [facility] [address] [place], [place] [id number] Physical Therapist Physical Therapy 11/08/20 Guerrero Weiner, PROPERTY MANAGEMENT ASSISTANT [address] [facility] [address] [place], [place] [id number] Deputy Editor In Chief Physical Therapy 12/12/20 Stephen Barth MD [address] [facility] [address] [place], [place] [id number] Referring Physician Transplant 10/19/23 Karlie Hernandez, RN [address] [facility] [address] [place], [place] [id number] SHOP Outpatient Public Information Officer 12/15/23 01/12/24 documented as of this encounter
--- OUTSIDE RECORDS SUMMARY | 2024-07-12 08:40 | XMS_ITS | Encounter Summary ---
Author Organization [facility] Healthcare Address [address] [place] [address] Care Team Providers Care Wire Loop Machine Operator Name Role Phone Enmanuel Gan MD Primary Care Provider [phone] Tg Houston MD Unavailable [phone] Guerrero Hunter DPT Unavailable [phone] Guerrero Weiner FELT HAT INSPECTOR AND PACKER Unavailable [phone] Stephen Barth MD Unavailable [phone] Reason for Visit * Reason Comments Successfully Completed Encounter Details Date Type Department Care Team (Late st Contact Info) Description 01/13/2024 SHOP/CHAP Subsequent Outreach [facility] OP CASE MANAGEMENT [address] [place] [address] Karlie Hernandez RN [address] [facility] [address] [place] [address] Social History Tobacco Use Types Packs/Day Years [...] attend chur ch or pentecostalism services? Never 01/07/2024 Do you belong to any clubs o r organizations such as temple groups, unions, fraternal or athletic groups, or [...] any time in the past [address] [facility], were you homeless or living [...] on file Legal Sex Female 9:09 PM ENGINE ASSEMBLY SUPERVISOR Gender Identity Not on file Sexual Orientation Lesbian 05/24/2019 9: 06 AM CDT documented as of this encounter Progress Notes * Karlie Hernandez RN - 01/13/2024 9:41 AM CDT Final SHOP call. Patient saw Dr. 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 Patient was discharged with [facility] and IVantibiotics. Patient reports feeling fairly well since discharge. Patient states IV antibiotics aregoing well so far and denies complications with infusions. Patient confirms she has all necessary infusion supplies. Patient states her pain level is manageable and she is working to stretch her oxycodone doses (currently doing q7 hours). Patient has no questions or concerns at this time. 30 day SHOP episode closed. documented in this encounter Plan of Treatment Not on file documented as of this encounter Visit Diagnoses Not on filedocumented in this encounter Care Teams Wire Loop Machine Operator Relationship Specialty Start Date End Date Enmanuel Gan MD [address] [place] [address] PCP - General Internal Medicine 04/26/20 Tg Houston MD [address] [place] [address] Consulting Physician Cardiology 07/18/20 Guerrero Hunter DPT [address] [facility] [address] [facility] [place] [address] Physical Therapist Physical Therapy 11/08/20 Guerrero Weiner, [facility] [address] [place] [address] Senior Sales Representative Physical Therapy 12/12/20 Stephen Barth MD [address] [place] [address] Referring Physician Transplant 10/19/23 documented as of this encounter
--- OUTSIDE RECORDS SUMMARY | 2024-07-12 08:40 | XMS_ITS | Encounter Summary ---
Author Organization [facility] Address [address] [place] [address] Phone Care Team Providers Care Liquid Floor And Wall Applier Name Role Phone Enmanuel Gan MD Primary Care Provider Tg Houston MD Unavailable Guerrero Hunter DPT Unavailable [phone] Guerrero Weiner SUPERVISOR FUSING ROOM Unavailable [phone] Stephen Barth MD Unavailable Karlie Hernandez RN Unavailable [phone] Reason for Visit * Reason Onset Date Comments PT Treatment 01/12/2024 Encounter Details Date Type Department Care Team (Late st Contact Info) Description 01/12/2024 Telephone [facility] Orthopaedic Surgery [facility] Advanced Medicine 6th [place] [address] [place] [address] Jeremy Michelle MD [address] [facility] [place] [address] PT Treatment Social History Tobacco Use Types Packs/Day Years [...] materials from doctor or pharmacy Never 01/09/2024 [facility] Utilities Answer Date Recorded In the past 12 months has e [employer], oil, or water [employer] threatened to shut off services in your [...] any clubs o r organizations such as denominational groups, unions, fraternal or athletic groups, or [...] any time in the past 12 m [facility], were you homeless or living in a [...] on file Legal Sex Female 9:09 PM LANDSCAPE SPECIALIST Gender Identity Not on file Sexual Orientation Lesbian 05/24/2019 9: 06 AM CDT documented as of this encounter Miscellaneous Notes * Telephone Encounter - Cyndie Byers RN - 01/12/2024 3:52 PM CDT Received call from Kindra with [facility] and she requested a verbal order for PT. Call returned and LVMwith okay to proceed per 's okay. Call to patient and she is aware. We also discussed the appeal for the bone stimulator. Per the notes from precert the denial has been upheld. Pt verbalized understanding. documented in this encounter Plan of Treatment Not on file documented as of this encounter Visit Diagnoses Not on filedocumented in this encounter Care Teams Liquid Floor And Wall Applier Relationship Specialty Start Date End Date Enmanuel Gan MD [address] [place] [address] PCP - General Internal Medicine 04/26/20 Tg Houston MD [address] [place] [address] Consulting Physician Cardiology 07/18/20 Guerrero Hunter DPT [address] [facility] [address] [place] [address] Physical Therapist Physical Therapy 11/08/20 Guerrero Weiner, [facility] [address] [facility] [address] [place] [address] Gambreler Helper Physical Therapy 12/12/20 Stephen Barth MD [address] [place] [address] Referring Physician Transplant 10/19/23 Karlie Hernandez, MEDINA [address] [facility] [address] [place] [address] SHOP Outpatient Master Fisher 12/15/23 01/12/24 documented as of this encounter
--- OUTSIDE RECORDS SUMMARY | 2024-07-12 08:40 | XMS_ITS | Encounter Summary ---
Author Organization [facility] Address [address] [place] [address] Care Team Providers Care Newspaper Editor Name Role Phone Enmanuel Gan MD Primary Care Provider [phone] Tg Houston MD Unavailable [phone] Guerrero Hunter DPT Unavailable [phone] Guerrero Weiner RN ORTHO Unavailable [phone] Stephen Barth MD Unavailable [phone] Karlie Hernandez RN Unavailable [phone] Reason for Visit * Auth/Cert (Routine) Specialty Diagnoses / Procedures Referred By Contac t Referred To Contact Referral ID Status Reason Start Date Expiration Date Visits Re quested Visits Authorized [id number] 1 1 Encounter Details Date Type Department Care Team (Latest Contact Info) Description 01/09/2024 3:45 PM CDT Home Care Visit [address] [address] [address] [place] [address] Jasmin Gaona OASIS START OF CARE Social History Tobacco Use Types Packs/Day Years [...] doctor or pharmacy Never 01/09/2024 [facility] Utilities Answer Date Recorded In the past [...] any clubs o r organizations such as yazdanism groups, unions, fraternal or athletic groups, or [...] on file Legal Sex Female 9:09 PM REGISTRATION MANAGER Gender Identity Not on file Sexual Orientation Lesbian 05/24/2019 9: 06 AM CDT documented as of this encounter Last Filed Vital Signs Vital Sign Reading Time Taken Comments Blood Pressure 108/66 01/09/2024 5:30 PM CDT Pulse 60 01/09/2024 5:30 PM CDT Temperature 32.3 ??C (90.2 ??F) 01/09/2024 5:30 PM CD T Respiratory Rate 16 01/09/2024 5:30 PM CDT Oxygen Saturation 98% 01/09/2024 5:30 PM CDT Inhaled Oxygen Concentration - - Weight 78.5 kg (173 lb) 01/09/2024 5:30 PM CDT Height 165.1 cm (5' 5 ) 01/09/2024 5:30 PM CDT Body Mass Index 28.79 01/09/2024 5:30 PM CDT documented in this encounter Miscellaneous Notes * Home Health/Infusion Jasmin Ortiz - 01/09/2024 4:23 PM CDT SITUATION Focus of Care: 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 Baseline numbness around her knees in an L3 type area from her original surgery. Continues to feel like she is leaning forward. More kyphosis at her thoracolumbar junction. Operative Procedures Performed 12/02/2023: Fusion decompression laminectomy. Posterior spinal instrumented fusion revision [id number] with posterior column osteotomies T12/L1 and L1/2, exploration offusion, removal of hardware, autograft, allograft, bone morphogentic protein. Sample sent from debrided L1 pedicle screw holes bilaterally, the holes were then packed with bone graft, vancomycin placed directly in the pedicles, no obvious infection seen; cultures obtained. OR culture (+) MSSE. 12/02: Vtach, transferred to ICU for tachycardia and hypotension. 12/03: AF RVR overnightl 12/06: AF RVR overnight --[facility] 01/05 - 01/08/2024-- Admission to begin IV ABT to treat methicillin-susceptible staphylococcus epidermidis. rare pansensitive staph epi result from the L1 intraoperative scraping. ID recommended IV ceftriaxone 2G every 24 hours x 6 weeks Surgical incision healed well. Post-surgical pain, and some at the incision site. Prior Level of Functioning: Independent with ADL aids. Current Living Conditions/Safety Hazards: Resides in her own home with her spouse 2 cats and a dog.Uses stair chair. Home entrance has no railing nor ramp. ASSESSMENT -Normal: Song: 20 Bims: 15 -Abnormal assessment findings: MACH-10: 6 TUG: Slowed/increased fall risk Medication Issues: None. Re-hospitalization risk: Moderate Barriers to care/social determinants: None. RECOMMENDATIONS POC to be confirmed with Padmini Claudio NP Plan for my discipline: SN weekly for labs, PICC maintenence, assessment, education Other disciplines ordered/recommended: Physical Therapy and Occupational Therapy eval/tx Supply/HME/equipment needs or issues: TBD Follow ups needed: Ortho and ID. * Quality Review - Jessica Manzanares - 01/09/2024 4:23 PM CDT M0102 - Date of Physician-ordered Start of Care 01/09/2024 NA M0104 - Date of Referral NA 01/08/2024 Referral date was documented as 01/08/24. Location of referral info: Referral note dated 01/08/24 MD signed. Per OASIS guidance, the referral date is the actual date that a valid referral was received by the branch location - for example, the date stamp on the faxed referral- and not the date the branch sees or acknowledges the referral. M1800 - Grooming 1- some help 2- needs assist Changed from 1 to 2. SN OASIS - noted needs supervision to ambulate, SBA to transfer and gas general weakness. According to OASIS guidance, if patient requires standby assist OR verbal cues to groom self, due to physical/cognitive/environmental barriersto complete activities safely, then Code 2. M1820 - Dress Lower Body 1- some help 2- needs assist Changed from 1 to 2. SN OASIS - noted needs supervision to ambulate, SBA to transfer and gas general weakness. needs minimum assist to dress lower body. According to OASIS guidance, if patient requires standby assistance (a ??educational technology specialist??) to dresssafely or requires verbal cueing/reminders due to physical/cognitive/environmental barriers to complete task safely, then Code 2. M1830 - Bathing 2- interm assist shower 3- cont assist shower Changed from 2 to 3. SN OASIS - notedneeds supervision to ambulate, SBA to transfer and gas general weakness. needs minimum assist to dress lower body. According to OASIS, if patient is able to shower but requires constant supervision due to physical/cognitive/environmental barriers to bathe safely, then Code 3. M1845 - Toileting Hygiene 1- some help 2- needs assist Changed from 1 to 2. SN OASIS - noted needs supervision to ambulate, SBA to transfer and gas general weakness. needs minimum assist to dress lower body. According to OASIS guidance, if the patient needs help with adjusting lower body clothing due to physical/emotional impairments, then Code 2. M1850 - Transferring 1- able w/ min assist 2- unable to transfer self Changed from 1 to 2. SN OASIS- noted needs supervision to ambulate, SBA to transfer and gas general weakness. According to OASISguidance, if patient does not use assisted device but requires more than minimal human assistance (>25% of verbal cues, stand-by, environmental set up) due to physical/cognitive impairments to complete transfer process safely, then Code 2. M1028 - Active Diagnoses 3- None of the above Change from blank to NA. Patient does not have an active diagnosis of DM OR PVD/PAD documented by the MD or designee on the day of assessment. M1033 - Risk for Hospitalization 1-Hx Falls;3-Multiple hospitalizations;7-Taking 5+ meds;8-Reports exhaustion 1-Hx Falls;3-Multiple hospitalizations;5-Decline in mental/emotional/behavioral status;7-Taking 5+ meds;8-Reports exhaustion Add Response 5. Patient has a cognitive/behavioral/emotional diagnoses/condition of depression and anxiety, although it??s not clear if there has been a decline. If the patient has had a decline in this diagnosis, they are more likely to experience rehospitalization; and Response 5 would be appropriate. J0520 - Pain Interference with Therapy Activities 0- Does not apply- I have not received rehabilitation therapy in the past 5 days 1- Rarely or not at all Changed from 0 to at least 1. PT eval done 01/11. According to OASIS guidance, if therapy (PT/OT) makes a home visit within the assessment timeframe window (e.g., SOC = Day 0 to Day 5), their day of assessment is included in the past 5 days. J0520 would not be Code 0 if rehab was completed during the visit. If the patient has pain that limits therapy more frequently, please address accordingly. M2020 - Management of Oral Medications 1-Able if prepared or another person develops drug diary 3-Unable unless administered by another Changed from 1 to 3. SN OASIS - noted needs supervision to ambulate. OASIS guidance states if patient has physical limitations like needing assistance to walk to where medications are stored or get a glass of water to take medications safely, then Code 3. documented in this encounter Plan of Treatment Not on file documented as of this encounter Visit Diagnoses Not on filedocumented in this encounter Home Health Visit - Care Plan Visit Details Visit Type -SN OASIS Start o f Care Discipline -Snf Problems Problem Description Start Date Status Goals Interventions Homebound Status Disciplines: Skilled Disciplines Patient's homebound status 01/09/2024 Active 1 goal linked to scheduled/docume nted intervention 1 goal intervention scheduled/documen maritza in this visit Monitor patient's vital signs every home health visit Disciplines: SN, PT, OT, HEALTHCARE ECONOMICS MANAGER, SLAG WORKER, Skilled Disciplines Monitor patient's vital signs every [...] goal interventions scheduled/documen maritza in this visit Wound Education and Management Disciplines: Core Disciplines Knowledge deficit related to wound management and risk of infection. 01/09/2024 Active 1 goal linked to scheduled/docume nted intervention 1 goal intervention scheduled/documen maritza in this visit Wound Care Disciplines: Core Disciplines, Skilled Disciplines Wound care needed 01/09/2024 Active - 1 problem intervention scheduled/documen maritza in this visit Medications Disciplines: Snf Management of IV Medications 01/09/2024 Active - 1 problem intervention scheduled/documen maritza in this visit Safety concerns Disciplines: Snf Safety needs related to infusion administration 01/09/2024 Active - 1 problem intervention scheduled/documen maritza in this visit IV Therapy-Manageme nt, Education, and Maintenance Disciplines: Snf IV Management, education, and maintenance for home [...] visit during episode of care Description: Home programs manager to measure vital signs during every [...] throughout episode of care. Safety concerns No Knowledgeable of Wound Management Description: Patient/caregiver [...] health visit during episode of care Completed Educate Patient on Infection Prevention Description: Instructed patient on signs and symptoms of infection IE: fever, warmth pain, purulent drainage or drainage that has a change in color or odor. Problem:Infection Prevention Goal:Verbalize signs of infection Completed Educate Family on Infection Prevention Description: Instructed family on signs and symptoms of infection IE: fever, warmth pain, purulent drainage or drainage that has a change in color or odor. Problem:Infection Prevention Goal:Verbalize signs of infection Completed Instruct Fall Prevention Description: Instruct patient/caregiver in methods to prevent falls Problem:Safety concerns Goal:Demonstrate use of safety precautions Completed Assess safety Description: Assess patient safety Problem:Safety concerns Goal:Demonstrate use of safety precautions Completed Educate on Wound Care Management Description: Instruct patient/caregiver on wound management including: nutrition and hydration needs for altered skin integrity, signs and symptoms of infection and/or wound deterioration to report to home health agency and or physician. Problem:Wound Education and Management Goal:Knowledgeable of Wound Management Completed Instructed patient/caregiver on wound management including signs and symptoms of infection and/or wound deterioration to report to home health agency and/or physician. Patient and Caregiver verbalized understanding signs and symptoms of infection and/or wound deterioration to report to home health agency and/or physician. Assess wound Description: Assess and document wound location, size of visible granulation tissue or epithelialization, necrotic tissue, s/s of infection. Assess and document exudate volume, color, consistency, and odor. Problem:Wound Care Completed Instruct on Medication Management Description: Instruct patient/caregiver in medication administration, purpose, dosages, preparation, scheduling, side effects, food/drug interactions, storage, drug allergies, and potential complications. Problem:Medications Completed Instructed patient on signs and symptoms related to medication regimen to report to provider. Assessed patient's/caregiver's ability to demonstrate management of medications safely. Follow up needs: Patient verbalizes understanding of medication management. Instruct on IV complications Description: Instruct patient/caregiver on how to manage breaks in line, signs/symptoms of complications, who to contact for complications and how to contact the nurse, MD and infusion service Problem:Safety concerns Completed PICC Line Description: PICC Line with one [...] arm. Problem:IV Therapy-Management, Education, and Maintenance Completed Demonstrated medication adminstration and line flushing technique. Patient and caregiver able to verbally return demonstrate understanding. Continue to reinforce education. Performed PRN PICC line dressing change d/t presence of old blood beneath dressing and surrounding insertion site. Patient tolerated with minimal discomfort. IV Management and Education Description: Instruct patient/caregiver [...] complications. Problem:IV Therapy-Management, Education, and Maintenance Completed Instructed patient/caregiver how to prepare/gather/inspec t supplies and infusion prior to use, and how to obtain additional supplies. Instructed patient/caregiver on how to properly administer and disconnect medication, how to administer normal saline/heparin flushes, and waste disposal. Instruct patient/caregiver to monitor for signs and symptoms of adverse medication reaction such as: rash, shortness of breath, tingling, numbness, restlessness, nausea and vomiting; report any s/s to SN or physician. Instruct patient to contact home health agency if line is not functioning properly. Instructed patient/caregiver on infection prevention: including proper hand hygiene and use of gloves, equipment, cleaning IV connections with alcohol wipe, then allowing to dry before attaching any syringe/tubing, place disinfecting cap on lumen/extension tubing when not in use. If transparent dressing is occlusive patient may shower, instructed patient to cover dressing. Instructed patient/caregiver on signs of complications: Evidence of dislodgement, redness, tenderness, swelling, leaking/drainage, pain, numbness or tingling in extremity on side of access device - to notify home health nurse or physician for any signs and symptoms of complications. Patient and Caregiver verbalized understanding of the above; Continue to reinforce education. documented in this encounter Care Teams Newspaper Editor Relationship Specialty Start Date End Date Enmanuel Gan MD [address] [facility] [address] [place] [address] PCP - General Internal Medicine 04/26/20 Tg Houston MD [address] [place] [address] Consulting Physician Cardiology 07/18/20 Guerrero Hunter DPT [address] [facility] [address] [place] [address] Physical Therapist Physical Therapy 11/08/20 Guerrero Weiner, RN ORTHO [address] [facility] [address] [place] [address] Technical Account Executive Physical Therapy 12/12/20 Stephen Barth MD [address] [place] [address] Referring Physician Transplant 10/19/23 Karlie Hernandez RN [address] [facility] [address] [place], [place] [id number] SHOP Outpatient Sales Department Manager 12/15/23 01/12/24 documented as of this encounter
--- OUTSIDE RECORDS SUMMARY | 2024-07-12 08:40 | XMS_ITS | Encounter Summary ---
Author Organization [facility] Address [address] [place] [address] Phone Care Team Providers Care Paper Cone Drying Machine Operator Name Role Phone Enmanuel Gan MD Primary Care Provider [phone] Tg Houston MD Unavailable [phone] Guerrero Hunter DPT Unavailable [phone] Guerrero Weiner FOUNDRY SUPERVISOR Unavailable [phone] Stephen Barth MD Unavailable Karlie Hernandez RN Unavailable Reason for Visit * Reason Onset Date Comments OPAT 01/12/2024 Encounter Details Date Type Department Care Team (Late st Contact Info) Description 01/12/2024 Documentation [facility] Infectious Diseases [address] [place] [address] Kelly Guerrero, LU [address] [place] [address] OPAT Social History Tobacco Use Types Packs/Day [...] materials from doctor or pharmacy Never 01/09/2024 [facility] Utilities Answer Date Recorded In the past 12 months has th e [employer], gas, oil, or water company threatened to [...] often do you attend chur ch or yazdanism services? Never 01/07/2024 Do you belong to any clubs o r organizations such as synagogue groups, unions, fraternal or athletic groups, or [...] any time in the past 12 m [facility], were you homeless or [...] on file Legal Sex Female 9:09 PM CURRICULUM AND INSTRUCTION SPECIALIST Gender Identity Not on file Sexual Orientation Lesbian 05/24/2019 9: 06 AM CDT documented as of this encounter Progress Notes * Kelly Guerrero NP - 01/12/2024 10:38 AM CDT Infectious Disease OPAT Monitoring Note Dx: L1 discitis/osteomyelitis Abx: Ceftriaxone 2 grams IV every 24 hours Duration 6 weeks, can consider early PO switch in clinicafter at least 2 weeks of IV Labs: CBC with diff, CMP, and ESR/CRP Inpt SUBSTATION OPERATOR HELPER/Attg: Orthopedic ID- Ivone Guerrero NP; Annie Outpt: Jewel BARRERA appt: 02/04/24 Discharge date: 01/08/24 HI/Facility: [facility] Home Infusion [phone]) HH: [facility] Imaging: none Access: PICC FYI: Labs: Date WBC ANC Eos Plt Scrt AST/ALT 01/05 (inpt) 8.1 5.4 0.3 325 0.94 Assessment/Plan: 01/11: No new labs since discharge. Continue ceftriaxone. Time spent: 20 minutes documented in this encounter Plan of Treatment Not on file documented as of this encounter Visit Diagnoses Not on filedocumented in this encounter Care Teams Paper Cone Drying Machine Operator Relationship Specialty Start Date End Date Enmanuel Gan MD [address] [place] [address] PCP - General Internal Medicine 04/26/20 Tg Houston MD [address] [place] [address] Consulting Physician Cardiology 07/18/20 Guerrero Hunter, DPT [address] [facility] [address] [place] [address] Physical Therapist Physical Therapy 11/08/20 Guerrero Weiner, [facility] [address] [facility] [address] [place] [address] Phosphoric Acid Operator Physical Therapy 12/12/20 Stephen Barth MD [address] [place] [address] Referring Physician Transplant 10/19/23 Karlie Hernandez, RN [address] [facility] [address] [place] [address] SHOP Outpatient Field Producer 12/15/23 01/12/24 documented as of this encounter
--- OUTSIDE RECORDS SUMMARY | 2024-07-12 08:40 | XMS_ITS | Encounter Summary ---
Author Organization [facility] Address [address] [place] [address] Care Team Providers Care Soap Maker Name Role Phone Enmanuel Gan MD Primary Care Provider [phone] gT Houston MD Unavailable [phone] Guerrero Hunter DPT Unavailable [phone] Guerrero Weiner SHOE CLERK Unavailable [phone] Stephen Barth MD Unavailable [phone] Karlie Hernandez RN Unavailable [phone] Reason for Visit * Reason Comments Unsuccessful Phone Call 1 Encounter Details Date Type Department Care Team (Late st Contact Info) Description 01/05/2024 SHOP/CHAP Subsequent Outreach [facility] OP CASE MANAGEMENT [address] [place] [id number] Karlie Hernandez, RN [address] [facility] [address] [place] [address] Social History Tobacco Use Types Packs/Day Years Used Date Smoking Tobacco: Never Smokeless Tobacco: Never Alcohol Use Standard Drinks/Week Comments Yes 5 (1 standard drink = 0.6 oz pur e alcohol) [facility] Utilities Answer Date Recorded In the past [...] often do you attend chur ch or episcopal services? Never 12/15/2023 Do you belong to [...] time in the past 12 m [facility], were you homeless or living in a [facility] (including now)? No 12/15/2023 Personal Safety Answer Date Recorded Have you ever been in or are you currently in a harmful physical or emotional relationship or is someone making you feel afraid or unsafe? 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 Gender Identity Not on file Sexual Orientation Lesbian 05/24/2019 9: 06 AM CDT documented as of this encounter Plan of Treatment Not on file documented as of this encounter Visit Diagnoses Not on filedocumented in this encounter Care Teams Soap Maker Relationship Specialty Start Date End Date Enmanuel Gan MD [address] [facility] [address] MED[address]INE [place], [place] [id number] PCP - General Internal Medicine 04/26/20 Tg Houston MD [address] [place] [address] Consulting Physician Cardiology 07/18/20 Guerrero Hunter DPT [address] [facility] [address] [place] [address] Physical Therapist Physical Therapy 11/08/20 Guerrero Weiner, SHOE CLERK [address] [facility] [address] [place] [address] Patient Admitting Clerk Physical Therapy 12/12/20 Stephen Barth MD [address] [place] [address] Referring Physician Transplant 10/19/23 Karlie Hernandez RN [address] [facility] [address] [place] [address] SHOP Outpatient All Source Intelligence Technician 12/15/23 01/12/24 documented as of this encounter
--- OUTSIDE RECORDS SUMMARY | 2024-07-12 08:40 | XMS_ITS | Encounter Summary ---
Author Organization [facility] Address [address] [place] [address] Phone Care Team Providers Care Passenger Coach Driver Name Role Phone Enmanuel Gan MD Primary Care Provider [phone] Houston MD Unavailable [phone] Guerrero Hunter DPT Unavailable [phone] Guerrero Weiner WEB COMMUNICATIONS SPECIALIST Unavailable [phone] Stephen Barth MD Unavailable [phone] Karlie Hernandez RN Unavailable [phone] Reason for Visit * Reason Onset Date Comments Follow-up 12/31/2023 Encounter Details Date Type Department Care Team (Late st Contact Info) Description 12/31/2023 Telephone [facility] Orthopaedic Surgery [facility] Advanced Medicine 6th [place] [address] [place] [phone] Jeremy Michelle MD [address] [place] [address] Follow-up Social History Tobacco Use Types Packs/Day Years Used Date Smoking Tobacco: Never Smokeless Tobacco: Never Alcohol Use Standard Drinks/Week Comments Yes 5 (1 standard drink = 0.6 oz pur e alcohol) [facility] Utilities Answer Date Recorded In the [...] attend chur ch or christianity services? Never 12/15/2023 Do you belong to any clubs o r organizations such as yazidi groups, unions, fraternal or athletic groups, or [...] time in the past 12 m [facility], were you homeless or living in a senior care (including now)? No 12/15/2023 Personal Safety Answer Date Recorded Have you ever been in or are you currently in a harmful physical or emotional relationship or is someone making you feel afraid or unsafe? 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 Awaiting decision from insurance. Patient verbalized understanding. documented in this encounter Plan of Treatment Not on file documented as of this encounter Visit Diagnoses Not on filedocumented in this encounter Care Teams Passenger Coach Driver Relationship Specialty Start Date End Date Enmanuel Gan MD [address] [facility] [address] [place] [address] PCP - General Internal Medicine 04/26/20 Tg Houston MD [address] [facility] [address] [place] [address] Consulting Physician Cardiology 07/18/20 Guerrero Hunter DPT [address] [facility] [address] [place] [address] Physical Therapist Physical Therapy 11/08/20 Guerrero Weiner, WEB COMMUNICATIONS SPECIALIST [address] [facility] [address] [place] [address] Assistant Professor Of Sociology Physical Therapy 12/12/20 Stephen Barth MD [address] [facility] [address] [place], [place] [id number] Referring Physician Transplant 10/19/23 Karlie Hernandez, RN [address] [facility] [address] [place] [address] SHOP Outpatient Refrigerating Engineer Head 12/15/23 01/12/24 documented as of this encounter
--- OUTSIDE RECORDS SUMMARY | 2024-07-12 08:40 | XMS_ITS | Encounter Summary ---
Author Organization [facility] Healthcare Address [address] [place] [address] Care Team Providers Care [employer] Cutter Name Role Phone Enmanuel Gan MD Primary Care Provider Tg Houston MD Unavailable [phone] Guerrero Hunter DPT Unavailable [phone] Guerrero Weiner HAND WEAVER Unavailable [phone] Stephen Barth MD Unavailable [phone] Karlie Hernandez RN Unavailable [phone] Reason for Referral * Home Health (Routine) - Pending Review Specialty Diagnoses / Procedures Referred By Contac t Referred To Contact Home Health Services / Home Health and Hospice Diagnoses Infection of lumbar spine (CMS/HCC) (HCC) Padmini Claudio NP Phone: tel: fax: [facility] Home Care Services [address] [place] [address] Phone: tel: fax: Referral ID Status Reason Start Date Expiration Date Visits Requested Visits Authorized [id number] Pending Review Specialty Services Required 01/07/2024 02/05/2025 1 1 Question Answer [id number] Home Health and Infusion Primary disciplines requested: Correction, Physical Therapy Home Health Services IV Catheter Maintenance, Labs IV Catheter Types: PICC Line Number of Lumens: 2 IV Catheter Flush Care Instructions: Evaluate and manage the IV catheter to maintain patency IV Catheter Dressing Change Instructions: Evaluate, manage, and change the dressing weekly Labs: CBC with Differential, CMP CBC frequency: Once a week CMP frequency: Once a week Date to Start Labs: 01/13/2024 Infusion Services Infusion Therapy, Labs (Infusion) Infusion Therapy: Antibiotic Therapy How many antibiotic therapies: 1 ABX Medication 1: Ceftriaxone ABX Dose 1: 2000mg ABX Route 1: IV ABX Frequency 1: q24 ABX Therapy Duration 1: 6 weeks Physician to follow patient's care (the person listed here will be responsible for signing ongoing orders): Referring Provider Requested Start of Care Date: Today (please call ahead to confirm) I certify that, based on my findings, the following services are medically necessary skilled home health services: IV Catheter Maintenance, Labs I certify that, based on my findings, the following services are medically necessary skilled home infusion services: IV Catheter Maintenance (Infusion), Infusion Therapy, Labs (Infusion) I attest that I or another qualified licensed provider saw the patient 90 days prior to or 30 days post admission and this face to face encounter meets the necessary Home Health requirements. The face to face encounter occurred on (date): 01/07/2024 The encounter with the patient was in whole, or in part, for the following medical condition, which is the primary reason for home health care. (List medical condition): Positive bone culture Clinical findings that support the need for home care: Medical condition requiring skilled assessment/education I certify that my clinical findings support patient's homebound status. Homebound criteria met because: Requires assistance of another to leave home safely, Pain and impaired mobility post-op Reason for Visit * Auth/Cert Specialty Diagnoses / Procedures Referred By Contac t Referred To Contact Diagnoses INFECTIOUS DISEASE CONSULT Procedures n/a Referral ID Status Reason Start Date Expiration Date Visits Re quested Visits Authorized [id number] 1 1 Encounter Details Date Type Department Care Team (Latest Contact Info) Description 01/06/2024 2:19 PM CDT - 01/08/2024 11:42 AM CDT Hospital Encounter [facility] [address] [place] [address] Jeremy Michelle MD [id number] [facility] [address] [place] [address] Infection of lumbar spine (CMS/HCC) (HCC) (Primary Dx) Discharge Disposition: Discharge to home, home health skilled care Social History Tobacco Use Types Packs/Day [...] from doctor or pharmacy Never 01/09/2024 [facility] Utilities Answer Date Recorded In the past 12 months has e [employer], gas, oil, or water [employer] threatened to shut off services in your [...] any time in the past 12 m [facility], were you homeless or living [...] on file 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 Gender Identity Not on file Sexual Orientation Lesbian 05/24/2019 9: 06 AM CDT documented as of this encounter Last Filed Vital Signs Vital Sign Reading Time Taken Comments Blood Pressure 111/54 01/08/2024 7:51 AM CDT Pulse 61 01/08/2024 7:51 AM CDT Temperature 36.5 ??C (97.7 ??F) 01/08/2024 7:51 AM CD T Respiratory Rate 17 01/08/2024 7:51 AM CDT Oxygen Saturation 97% 01/08/2024 7:51 AM CDT Inhaled Oxygen Concentration - - Weight 78.5 kg (173 lb) 01/06/2024 2:44 PM CDT Height 165.1 cm (5' 5 ) 01/06/2024 2:44 PM CDT Body Mass Index 28.79 01/06/2024 2:44 PM CDT documented in this encounter Discharge Summaries * Gabriel Harmon, LU - 01/08/2024 11:03 AM CDT Images from the original note were not included. Spine Inpatient Discharge Summary Admitting Provider: Jeremy Michelle MD Discharge Provider: Jeremy Michelle* Primary Care Physician at Discharge: Enmanuel Gan MD [phone] Admission Date: 01/06/2024 Discharge Date: 01/08/2024 Primary Discharge Diagnosis: Infection of lumbar spine (CMS/HCC) (HCC) Secondary Discharge Diagnosis: Principal Problem: Infection of lumbar spine (CMS/HCC) ([facility]) Resolved Problems: No resolved hospital problems. DETAILS OF HOSPITAL STAY Chief Complaint: Concern for spinal hardware infection History of Present Illness: The patient is a 78 y.o. year old female cared for by Dr. Jeremy Michelle with PMH of multiple spine surgeries including prior posterior spinal instrumented fusion L1-L4 in 06/2020 which was revisiondue to a prior nonunion L2-L3 with worsening kyphosis c/b new nonunion who was recently admitted for revision with [id number] PSF, now readmitted 01/06/2024 given positive OR cultures. 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 Patient underwent revision with extension up to T10 and extending down topelvis PSIF T12/L1 and L1/2 posterior column osteotomies, and L1 removal of hardware/screws bilaterally on 12/02/23. Per op note after removing L1 pedicle screws bilaterally, the holes were debrided and packed with bone graft, vancomycin placed directly in the pedicles, no obvious infection seen but cultures obtained. OR culture grew MSSE. Postop course complicated with Vtach and transferred to ICUstarted on amiodarone. She was discharged home on 12/14/23. Seen in ortho clinic 01/05/24 and was doing well, surgical incisions appeared to be healing. Cultures reviewed and given possible infected nonunion she was readmitted to start IV antibiotics. Surgical incision healed well. Since surgery she now has a pain over the area but she describes it as a different type of pain that is related to surgery, also notes numbness at the incision site. Operative Procedures Performed: Hospital Course 01/05 direct admit for PICC line and IV abx 01/06 plan to likely DC home with 01/07 Discharged after dose of ceftriaxone The patient was able to wean away from intravenous narcotics , the patient was able to mobilize with physical and occupational therapy, the patient had post operative images and those images were reviewed by the surgeon, and the patient was felt to be stable for discharge to home with home health on 01/07 Problems addressed during this hospitalization: Infection of lumbar spine (CMS/HCC) ([facility]) --S/p surgical intervention on 12/01 (prior admission), now admitted for a rare pansensitive staph epi result from the L1 scraping intraoperative --Infectious disease consult; recommend IV ceftriaxone 2g q 24 hours x 6 weeks --PICC placed 01/05 --Patient to follow-up with Dr. Michelle and ID outpatient Consults: Infectious Diseases Other Procedures: PICC line placed 01/05 GI/ Concerns: Tolerating regular diet. 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 Therapy recommendations: No PT/OT evaluation, resume home PT/OT Incision: Healing well, closed and intact from prior surgery Brace: TLSO order as prior to DC, when OOB Surgical drains: N/A Central Line Removed: PICC Blood Transfusions: NA Notable medications: Pain medications: home meds- 2. Steroids: none 3. Antibiotics: Cetriaxone 2g q24h, can consider changing to PO abx in clinic after 2 weeks of IV abx 4. Anticoagulation/antiplatelet agents: Resume home lovenox to complete 30 day of lovenox at home from prior DC 12/13-01/12 Test Results Pending at Discharge: N/A Pertinent Diagnostic Results: Tissue aerobic and anaerobic culture and gram stain (back) 12/01 Final Report: Rare Staphylococcus epidermidis Physical Exam at Discharge: Gen: no acute distress Neuro: A&Ox3 Motor: Muscle Strength Right Left Iliopsoas (L2/3) 5/5 5/5 Quadriceps (L3/4) 5/5 5/5 Tibialis anterior (L4/5) 5/5 5/5 Extensor hallicus longus (L5) 5/5 5/5 Gastrocsoleus complex (S1) 5/5 5/5 Sensation Left lower extremity: SILT L2 to S1 dermatomes. Right lower extremity: SILT L2 to S1 dermatomes. Vascular: Bilateral Lower Extremity: 2+ DP pulse, toes WWP Discharge Condition: Good Vital Signs Pulse: 61 Resp: 17 BP: 111/54 Temp: 36.5 ??C (97.7 ??F) Weight: 78.5 kg (173 lb) SpO2: 97 % Follow-up: Spine: Scheduled for 02/22 . Infectious Disease 02/03 Lab tests/imaging necessary on follow-up: no additional scans/tests necessary Future Appointments Date Time Provider Department Center 02/04/2024 2:00 PM Rose Marie Holloway NP ID [facility] Inf Dis 02/23/2024 8:30 AM Jeremy Michelle MD [id number] OS 04/04/2024 1:00 PM Clara Thakkar NP [facility] Specialty 04/04/2024 1:15 PM [facility] 260C DEVICE CHECK [facility] Specialty Chem/LFT Lab History Latest Ref Rng & Units 12/05/2023 12/06/2023 20:51 12/07/2023 20:33 01/06/2024 18:14 Labs-Chem/LFT Sodium 135 - 145 mmol/L 135 137 136 140 Creatinine 0.60 - 1.10 mg/dL 0.56 0.62 0.63 0.94 Bilirubin, total 0.1 - 1.2 mg/dL 0.2 AST 10 - 45 Units/L 25 ALT 7 - 45 Units/L 14 Alk phos 40 - 130 Units/L 116 CrCl- Actual Body Weight (Cockcroft-Gault) 105.4 95.2 93.7 62.1 Details More abnormal values are hidden. Newest values shown. Go to activity for more data. More values are hidden. Newest values shown. Go to activity for more data. Hematology Lab History Latest Ref Rng & Units 12/05/2023 12/06/2023 22:24 12/07/2023 20:33 01/06/2024 18:14 Labs - Hematology WBC 3.8 - 9.9 K/cumm 9.5 6.9 8.9 8.1 Total Hb, POC 11.9 - 15.5 g/dL 8.9 8.7 9.1 11.1 Hct 35.6 - 45.5 % 25.9 25.8 26.9 34.9 Plt 150 - 400 K/cumm 173 208 272 325 Neutrophil abs 1.5 - 6.5 K/cumm 5.4 Lymphocytes, abs 0.8 - 3.3 K/cumm 1.6 Details More abnormal values are hidden. Newest values shown. Go to activity for more data. More values are hidden. Newest values shown. Go to activity for more data. Contains abnormal data Tissue aerobic and anaerobic culture and gram stain Tissue Back Order: [id number] Collected 12/02/2023 14:07 Status: Final result Visible to patient: Yes (not seen) Specimen Information: Back; Tissue 0 Result Notes Component Direct Specimen Exam Stain: No polymorphonuclear leukocytes seen. No organisms seen. Report . (.) Final Report: Rare Staphylococcus epidermidis Organism STAPHYLOCOCCUS EPIDERMIDIS Resulting Agency [facility] Susceptibility Staphylococcus epidermidis (JIM) INTERPRETATION Cefazolin Susceptible Ceftriaxone Susceptible Clindamycin Susceptible Daptomycin (JIM) Susceptible Doxycycline Susceptible Erythromycin Resistant Linezolid Susceptible Oxacillin Susceptible Trimethoprim with Sulfamethoxazole Susceptible Vancomycin Susceptible Narrative Performed by: LIZBETH L1 Pedicle Specimen collected in the operating room. Discharge Medication List: Current Medications TAKE these medications acetaminophen 500 mg capsule Take 2 capsules (1,000 mg total) by mouth every 6 (six) hours as needed for pain amiodarone 200 mg tablet Take 2 tablets (400mg) the evening of 12/14/23. Starting 12/15/23, take one tablet (200mg) once a day. Follow up with your free lance artist within one week of discharge. Commonly known as: PACERONE atorvastatin 20 mg tablet Take 1 tablet (20 mg total) by mouth nightly For: excessive fat in the blood Commonly known as: LIPITOR cefTRIAXone syringe Infuse 20 mL (2,000 mg total) into a venous catheter daily For: Bone/Joint Infection Commonly known as: ROCEPHIN Start taking on: January 09, [address] 60 mg capsule Take 1 capsule (60 mg total) by mouth every morning For: anxiousness associated with depression Commonly known as: CYMBALTA Eliquis 5 mg tablet DO NOT TAKE THIS MEDICATION UNTIL AFTER YOU COMPLETE YOUR LOVENOX INJECTIONS (JANUARY 14, 2024). ON JANUARY 14, 2024 YOU MAY RESUME TAKING 5MG BY MOUTH TWICE A DAY. For: atrial fibrillation Generic drug: apixaban enoxaparin 40 mg/0.4 mL syringe Inject 0.4 mL (40 mg total) under the skin daily for 5 days For: deep vein thrombosis prevention Commonly known as: LOVENOX furosemide 40 mg tablet Take 1 tablet (40 mg total) by mouth 2 (two) times a day This medication dose was changed during your admission. Follow up with your free lance artist within one week of discharge regarding this medication. Commonly known as: LASIX methocarbamoL 750 mg tablet Take 1 tablet (750 mg total) by mouth every 8 (eight) hours Commonly known as: ROBAXIN metoprolol tartrate 25 mg immediate release tablet TAKE 1 TABLET(25 MG) BY MOUTH TWICE DAILY Commonly known as: LOPRESSOR oxyCODONE 10 mg tablet Take 1 tablet (10 mg total) by mouth every 4 (four) hours as needed for pain for up to 7 days For: pain Commonly known as: ROXICODONE Discharge Instructions: Activity Instructions Discharge Activity: Lifting restrictions *Do NOT lift greater than 10 pounds until 6 weeks or released from your Surgeon *Do NOT lift anything above your head Discharge Activity: Out of bed walking *Out of bed walking at least 6-8 times every day *Ask your surgeon before doing any other kind of exercise Discharge Activity: Stairs *You may climb stairs now Discharge activity: Out of bed to chair *Out of bed to chair at least 3 times every day Diet Instructions Adult Discharge Diet Diet Type: Return to previous diet Contact Information for Follow-ups [facility] Home Care Services Specialty: Home Health and Hospice [address] [facility] [id number] Next Steps: Follow up Questions: Service Line: Home Health and Infusion Primary disciplines requested: Correction Physical Therapy Home Health Services: IV Catheter Maintenance Labs IV Catheter Types: PICC Line Number of Lumens: 2 IV Catheter Flush Care Instructions: Evaluate and manage the IV catheter to maintain patency IV Catheter Dressing Change Instructions: Evaluate, manage, and change the dressing weekly Labs: CBC with Differential CMP CBC frequency: Once a week CMP frequency: Once a week Date to Start Labs: 01/13/2024 Infusion Services: Infusion Therapy Labs (Infusion) Infusion Therapy: Antibiotic Therapy How many antibiotic therapies: 1 ABX Medication 1: Ceftriaxone ABX Dose 1: 2000mg ABX Route 1: IV ABX Frequency 1: q24 ABX Therapy Duration 1: 6 weeks Physician to follow patient's care (the person listed here will be responsible for signing ongoing orders): Referring Provider Requested Start of Care Date: Today (please call ahead to confirm) I certify that, based on my findings, the following services are medically necessary skilled home health services: IV Catheter Maintenance Labs I certify that, based on my findings, the following services are medically necessary skilled home infusion services: IV Catheter Maintenance (Infusion) Infusion Therapy Labs (Infusion) I attest that I or another qualified licensed provider saw the patient 90 days prior to or 30 days post admission and this face to face encounter meets the necessary Home Health requirements. The face to face encounter occurred on (date): 01/07/2024 The encounter with the patient was in whole, or in part, for the following medical condition, whichis the primary reason for home health care. (List medical condition): Positive bone culture Clinical findings that support the need for home care: Medical condition requiring skilled assessment/education I certify that my clinical findings support patient's homebound status. Homebound criteria met because: Requires assistance of another to leave home safely Pain and impaired mobility post-op Referral Status: Some Visits Scheduled Other Instructions Ambulatory referral to Home Health Service Line: Home Health and Infusion Primary disciplines requested: Correction Physical Therapy Home Health Services: IV Catheter Maintenance Labs IV Catheter Types: PICC Line Number of Lumens: 2 IV Catheter Flush Care Instructions: Evaluate and manage the IV catheter to maintain patency IV Catheter Dressing Change Instructions: Evaluate, manage, and change the dressing weekly Labs: CBC with Differential CMP CBC frequency: Once a week CMP frequency: Once a week Date to Start Labs: 01/13/2024 Infusion Services: Infusion Therapy Labs (Infusion) Infusion Therapy: Antibiotic Therapy How many antibiotic therapies: 1 ABX Medication 1: Ceftriaxone ABX Dose 1: 2000mg ABX Route 1: IV ABX Frequency 1: q24 ABX Therapy Duration 1: 6 weeks Physician to follow patient's care (the person listed here will be responsible for signing ongoing orders): Referring Provider Requested Start of Care Date: Today (please call ahead to confirm) I certify that, based on my findings, the following services are medically necessary skilled home health services: IV Catheter Maintenance Labs I certify that, based on my findings, the following services are medically necessary skilled home infusion services: IV Catheter Maintenance (Infusion) Infusion Therapy Labs (Infusion) I attest that I or another qualified licensed provider saw the patient 90 days prior to or 30 days post admission and this face to face encounter meets the necessary Home Health requirements. The face to face encounter occurred on (date): 01/07/2024 The encounter with the patient was in whole, or in part, for the following medical condition, whichis the primary reason for home health care. (List medical condition): Positive bone culture Clinical findings that support the need for home care: Medical condition requiring skilled assessment/education I certify that my clinical findings support patient's homebound status. Homebound criteria met because: Requires assistance of another to leave home safely Pain and impaired mobility post-op Call 911 if you have chest pain or shortness of breath Call provider for any of the following: *Temperature greater than 101 degrees F or 38.5 C *You have any drainage from your incision *The skin around your incision is swollen and/or red *The incision starts to separate and open up *Pain medicine, rest or warm packs are not helping your pain *You are having new numbness or weakness *You begin feeling very weak *You are having numbness in your pelvic area *You are not able to control your bladder *You lose control of your bowels *You have constipation for longer than 5 days *You are having a hard time swallowing liquids *You have nausea or vomiting that will not go away *You have any swelling, warm to touch or painful areas in your legs. This needs IMMEDIATE attention. Care Instructions: No tub baths -No tub baths, whirlpools or swimming until your doctor says it's ok. Incentive Spirometry Use your incentive spirometer 10 times every hour while awake for one week. Medication instructions * You are being discharged from the hospital with a prescription for narcotic pain medication oxycodone that should last you 7 days. If you need more pain medication, please contact your surgeon's office for an additional prescription. * Constipation Prevention: Pain medications and recent surgery can cause constipation. You will receive a prescription for stool softeners. If you are not having bowel movements after being discharged from the hospital and taking stool softeners, please contact your surgeon's office for further instructions. STOP TAKING these medications if you start to experience diarrhea. Special Instructions *You should not smoke or use nicotine based e-cigarettes or any nicotine based products *You should not be around second hand smoke *Smoking decreases blood flow to your spinal cord, slows the healing process, and increases your risk of infection. Special Instructions Follow up with your primary care physician as soon as possible to discuss your surgery and hospitalstay. During this admission you may have been started on new medications that may require management by your primary care physician. It will be helpful at your appointment to bring your After Visit Summary (AVS) for your provider to review. [facility] Home Health--[phone] [facility] Pharmacy for IV antibiotics/supplies---[phone] SEE AVS Cosigned by Jeremy Michelle MD at 01/08/2024 2:34 PM CDT documented in this encounter Discharge Instructions * Discharge Instructions* Susan Foley MD - 01/06/2024 4:43 PM CDT Images from the original note were not included. Leaving the Hospital on IV Antibiotics Information for Patients and Families Infectious Diseases Because of your infection, you must be treated with antibiotics by vein (IV). Timing is important! You should receive antibiotics on a regular schedule and not skip doses. This will give your body enough antibiotic to fight your infection. Finishing is important! You must finish all antibiotics unless told otherwise by your doctor. Taking all of your antibiotics will help get rid of your infection and prevent resistance to antibiotics. What to expect Labs: A nurse will draw your blood about 1-2 times each week. Labs help us monitor your infection and watch out for antibiotic side effects. Telephone calls: You will be receiving lots of phone calls! People who will need to contact you include the infectious disease clinic, home health nurses, home infusion team (antibiotic providers), pharmacists, and doctors. Please make sure we have a working phone number for you so you can receive these calls that are important for your health Please make sure your voicemail is set up AND has space for us to leave a message (just in case we miss you!) Catheter and Wound care Always wash hands with antibacterial soap and use alcohol-based hand speech lang path therapist before touching yourcatheter or changing wound dressings. When drying hands, only use a clean paper towel. Don't forget to scrub the ???hub?? (tip of your catheter)! Do this with an alcohol wipe before each use. Scrub for 30 seconds (minimum) and allow to dry without blowing on it or waving your hand across it. Refer to your home care service's instructions for taking care of your IV line and hooking up your antibiotics. Follow-up Appointment Keeping your follow-up appointment is very important! Below are things that may happen or be decided at your infectious diseases clinic appointment. Look at the infection site and IV to look for problems Determine how long you need to be on IV antibiotics Prescribe oral (pill) antibiotics after finishing IV antibiotics if needed Depending on how you are doing, we may order additional blood work or imaging tests to evaluate your infection Arrange for your IV line to be removed when the IV antibiotics are completed Questions or Concerns?? Below are reasons to call the Infectious Diseases Clinic RIGHT AWAY! 1. Watery diarrhea more than 3 times in 24 hours. 2. Nausea, vomiting, and/or belly pain 3. Rash and/or itching 4. Chills 5. Drenching night sweats 6. Fever >100.3 7. Increasing redness and/or drainage from a wound 8. Confusion or personality changes 9. Antibiotic catheter problems. Based on your symptoms, we may be able to help you over the phone or have your home health nurse help you. In some cases, you may need to go to the Emergency Room. Contact Infectious Diseases Clinic: Toll-free: [phone] Hospital ID Doctor: [facility] Infectious Diseases Offices [facility] [facility] [address] [place] [address], [address] [place] [address] Patient parking available north of [facility] General Infectious Diseases and LVAD Offices [facility] [address], [address] [place] [address] [facility] LV[facility] ID [facility] [address] [facility] Office [address], [address] [place] [address] * Discharge Instr - Other Orders* Karina Desai RN - 01/08/2024 10:36 AM CDT [facility] Home Health--[phone] [facility] Pharmacy for IV antibiotics/supplies---[phone] documented in this encounter Medications at Time [...] 0 08/20/[address] (CYMBALTA) 60 mg capsuleIndications :Anxiety [...] spray 1 spray(s), Nasal, daily, 1 each, Hymera, 0 08/20/2023 furosemide (LASIX) 40 mg tabletIndications: Peripheral Edema due to Chronic Heart Failure [The details of the medication are not available because there are pending changes by a home health clinician.] 60 tablet 12/14/2023 methocarbamoL (ROBAXIN) 750 mg tabletIndications: Muscle Spasm Take 1 tablet (750 mg total) by mouth every 8 (eight) hours 90 tablet 2 01/05/2024 sucralfate (Carafate) 1 gram tablet 2 tablets (2 g total) 08/20/2023 enoxaparin (LOVENOX) 40 mg/0.4 mL syringeIndications :Deep Vein Thrombosis Prevention Inject 0.4 mL (40 mg total) under the skin daily for 5 days 2 mL 01/08/2024 4 oxyCODONE (ROXICODONE) 10 mg tabletIndications: Pain Take 1 tablet (10 mg total) by mouth every 4 (four) hours as needed for pain for up to 7 days 42 tablet 01/08/2024 4 cefTRIAXone (ROCEPHIN) syringeIndications :Bone/Joint Infection [The details of the medication are not available because there are pending changes by a home health clinician.] 01/09/2024 4 metoprolol tartrate (LOPRESSOR) 25 mg immediate release tabletIndications: Atrial Arrhythmia TAKE 1 TABLET(25 MG) BY MOUTH TWICE DAILY 180 tablet 1 07/31/2023 4 documented as of this encounter Ordered Prescriptions Prescription Sig Dispense Quantity Refills Last Filled Start Date End Date acetaminophen 500 mg capsuleIndications :Pain Take 2 capsules (1,000 mg total) by mouth every 6 (six) hours as needed for pain 01/08/2024 Eliquis 5 mg tabletIndications: atrial fibrillation DO NOT TAKE THIS MEDICATION UNTIL AFTER YOU COMPLETE YOUR LOVENOX INJECTIONS (JANUARY 14, 2024). ON JANUARY 14, 2024 YOU MAY RESUME TAKING 5MG BY MOUTH TWICE A DAY. 01/08/2024 oxyCODONE (ROXICODONE) 10 mg tabletIndications: Pain Take 1 tablet (10 mg total) by mouth every 4 (four) hours as needed for pain for up to 7 days 42 tablet 01/08/2024 4 enoxaparin (LOVENOX) 40 mg/0.4 mL syringeIndications :Deep Vein Thrombosis Prevention Inject 0.4 mL (40 mg total) under the skin daily for 5 days 2 mL 01/08/2024 4 cefTRIAXone (ROCEPHIN) syringeIndications :Bone/Joint Infection [The details of the medication are not available because there are pending changes by a home health clinician.] 01/09/2024 4 documented in this encounter Discharge Disposition Disposition Code Departure Means Destination Comment s Discharge to home, home health skilled care documented in this encounter Progress Notes * Estephania Licea RN - 01/08/2024 10:27 AM CDT Illness Severity/Patient Summary NA [ ] Following MD: Dr. Sybil Valencia [ ] Diagnosis: Post op infection from Lumbar spine surgery [ ] Covid +: NOT TESTED [ ] Anticipated DC: 01/08/24 [ ] Anticipated SOC: 01/09/24 [ ] Medication: CEFTRIAXONE 2 GR EVERY 24 HRS LARGE GLOVES [ ] Delivery to home or room: HOME [ ] supervisor travel trailer: NO Action Items/To Do [ ] Infusion Agency: [facility] [ ] [facility] Following Pharmacist: [ ] Home Health Agency (phone/fax): [facility] [ ] Type of line/Active LDAs/Wounds and ORDERS: NA [ ] Caregiver (name/phone #): SUNITA BRISENO - SPOUSE @ [phone] [ ] Patient Interview: YES [ ] Patient education: YES [ ] Admin method taught: IVP Situational Awareness/Contingency Planning ESTEPHANIA LICEA [ ] Delivery Address: [address] [place] [id number] [ ] Benefits: Ded $250 met @ 80% Oop $1,100 met @ 100% ULTM/SNV pre cert req. we are billing the insurance directly [ ] Concerns: NA * Karina Desai RN - 01/08/2024 10:05 AM CDT 01/08/24 1001 Discharge Summary Discharge Disposition Private residence Equipment/Provider Needs Home Provider Services Needs Identified;Home Equipment Needs Identified Home Care Agency Information Home Care Agency Type #1: Home Infusion Home Care Agency Name [facility] Home Health Home Care Agency Home Care Agency Contact Spoken to set up by [facility] HI coordinator Estephania Second Home Care Agency Used? Not Needed Home Equipment Information Home Equipment Provider Name [facility] Home Equipment Provider Home Equipment Provider Contact Spoken to Estephania Home Equipment Provider Order Faxed to [facility] referral Equipment Ordered IV antibiotics and supplies. Second Home Eqp Provider Used? Not Needed Discharge Additional Assistance Does the patient need discharge transport arranged? No Per medical team, patient is medically stable for discharge at this time. No therapy evaluation this admission. Patient will need IV antibiotics at discharge. [facility] has accepted for home health infusion, start of care 01/08. IV antibiotics/supplies to be delivered to home. Patient will need all doses of IV antibiotics prior to discharge today. Patient agreeable with discharge plan. Family to provide assistance and transportation at discharge. Patient to follow up with spinal surgery and ID. No further case management needs identified at this time MARSHAL Pop, RN * Ivelisse Olivares MD - 01/08/2024 6:30 AM CDT Orthopaedic Spine Service Daily Progress Note Admit Date: 01/06/2024 Hospital Day: 2 Michelle Dx: Pseudoarthrosis, positive culture PMH: HTN, HLD, CAD, CHF, RBBB, A-fib with dual lead ICD, chronic pain, [place] with cochlear implant Proc: Date unknown: L2-4 psf/i and L4-S1 non inst. fusion 07/25/20: PSF L1-L4 Revision 12/02/23: Revision PSF [id number], decompression Exam: Normal motor exam. SILT. Interval: 01/08/24: AFVSS, NAEON. Pain well controlled. ID recs ceftriaxone 2 grams IV every 24 hours Duration 6 weeks, can consider early PO switch in clinic after at least 2 weeks of IV . Exam: 11/28 BLE, SILT. Plan: Dispo today. HH infusion tomorrow. resume home 30d lovenox henna 01/12. Resume Per 01/13. Edited by: Ivelisse Olivares MD at 01/08/2024 0622 Objective Vitals: 24hr Min/Max: Temp Min: 36.6 ??C (97.8 ??F) Max: 36.8 ??C (98.2 ??F) Pulse Min: 60 Max: 69 BP Min: 103/42 Max: 131/66 Resp Min: 16 Max: 16 SpO2 Min: 94 % Max: 100 % I/O last 2 completed shifts: In: 240 [P.O.:240] Out: 0 No intake/output data recorded. Physical Exam: Gen: no acute distress Neuro: A&Ox3 Motor: Muscle Strength Right Left Iliopsoas (L2/3) 5/5 5/5 Quadriceps (L3/4) 5/5 5/5 Tibialis anterior (L4/5) 5/5 5/5 Extensor hallicus longus (L5) 5/5 5/5 Gastrocsoleus complex (S1) 5/5 5/5 Sensation Left lower extremity: SILT L2 to S1 dermatomes. Right lower extremity: SILT L2 to S1 dermatomes. Vascular: Bilateral Lower Extremity: 2+ DP pulse, toes WWP Lab/Diagnostic Review: Recent Labs Lab Units 01/06/24 1814 SODIUM mmol/L 140 POTASSIUM PLASMA mmol/L 4.3 CHLORIDE mmol/L 103 CO2 mmol/L 26 ANIONGAP mmol/L 11 GLUCOSE mg/dL 111 BUN SERUM mg/dL 14 CREATININE mg/dL 0.94 CALCIUM mg/dL 9.0 ALBUMIN g/dL 3.7 ALK PHOS Units/L 116 ALT Units/L 14 AST Units/L 25 BILIRUBIN TOTAL mg/dL 0.2 WBC K/cumm 8.1 HEMOGLOBIN g/dL 11.1* HEMATOCRIT % 34.9* PLATELETS K/cumm 325 NEUTROS PCT % 66.1 LYMPHS PCT % 19.3 MONOS PCT % 9.6 EOS PCT % 3.1 APTT sec 34 INR 1.25* Micro: Lab Results Component Value Date MICROBIOLOGY Amended Report - Complete: Negative 12/06/2023 MICROBIOLOGY Final Report: Rare Staphylococcus epidermidis (.) 12/02/2023 [ ] DC w/ HH 01/07 after CTX given, HH can see 01/08 [ ] resume home 30d lovenox thur 01/12. Resume Eliquis 01/13. Assessment/Plan: 78 y.o. female with above injury/deformity. Plan for ID consult and IV abx - d/c home today. Precautions: thoracic and lumbar precautions Immobilization: TLSO Activity: Up ad mega DVT ppx: Lovenox Therapy: PT/OT for OOB/mobilization as tolerated Drain: n/a Antibiotics: Per ID Recs as follows: CTX Cultures: None new Bedoya: n/a Wound Care: n/a Diet: Regular Imaging: None Additional Needs: HH infusions Ortho Spine is the primary team, and will manage this patient's hospital course. Dispo: pending HH Follow-Up: Patient has follow up scheduled on 02/[address] Michelle located at [facility] Edited by: Ivelisse Olivares MD at 01/08/2024 0630 Please call with questions during daytime. See below for overnight issues. If you know the resident's name on the appropriate orthopaedic surgery team, please use [email or web address] to page resident directly. If questions arise and the appropriate resident can't be reached or you are calling overnight, please contact [phone] ([facility] 7:30 PM - 6:30 AM - Floor Resident) or [phone] (24 hours/day - Consult Resident) Cosigned by Jeremy Michelle MD at 01/08/2024 2:44 PM CDT * Ivelisse Olivares MD - 01/07/2024 7:28 AM CDT Orthopaedic Spine Service Daily Progress Note Admit Date: 01/06/2024 Hospital Day: 1 Miguel Angel Dx: Pseudoarthrosis, positive culture PMH: HTN, HLD, CAD, CHF, RBBB, A-fib with dual lead ICD, chronic pain, [place] with cochlear implant Proc: Date unknown: L2-4 psf/i and L4-S1 non inst. fusion 07/25/20: PSF L1-L4 Revision 12/02/23: Revision PSF [id number], decompression Exam: Normal motor exam. SILT. Interval: 01/07/24: AFVSS, NAEON. WBC 8.1, H/H 11.1/34.9, Cr 0.94 Pain well controlled. ID recs ceftriaxone 2grams IV every 24 hours Duration 6 weeks, can consider early PO switch in clinic after at least 2 weeks of IV . Exam: 11/28 BUE/BLE, SILT. Plan: Dispo pending HH infusion set up. Edited by: Ivelisse Olivares MD at 01/07/2024 8269 Objective Vitals: 24hr Min/Max: Temp Min: 36.4 ??C (97.5 ??F) Max: 37.1 ??C (98.7 ??F) Pulse Min: 59 Max: 64 BP Min: 99/54 Max: 131/60 Resp Min: 16 Max: 16 SpO2 Min: 96 % Max: 98 % No intake/output data recorded. No intake/output data recorded. Physical Exam: Gen: no acute distress Neuro: A&Ox3 Motor: Muscle Strength Right Left Shoulder abduction (C5) 5/5 5/5 Elbow flexion (C5/6) 5/5 5/5 Elbow extension (C7) 5/5 5/5 Wrist extension (C6) 5/5 5/5 Wrist flexion (C7) 5/5 5/5 Grid Casting Machine Operator Helper (C8) 5/5 5/5 Interosseous of hand (T1) 5/5 5/5 Iliopsoas (L2/3) 5/5 5/5 Quadriceps (L3/4) 5/5 5/5 Tibialis anterior (L4/5) 5/5 5/5 Extensor hallicus longus (L5) 5/5 5/5 Gastrocsoleus complex (S1) 5/5 5/5 Sensation Left upper extremity: SILT C5 to T1 dermatomes. Right upper extremity: SILT C5 to T1 dermatomes. Left lower extremity: SILT L2 to S1 dermatomes. Right lower extremity: SILT L2 to S1 dermatomes. Vascular: Bilateral Upper Extremity: 2+ radial pulse, fingers WWP Bilateral Lower Extremity: 2+ DP pulse, toes WWP Lab/Diagnostic Review: Recent Labs Lab Units 01/06/24 1814 SODIUM mmol/L 140 POTASSIUM PLASMA mmol/L 4.3 CHLORIDE mmol/L 103 CO2 mmol/L 26 ANIONGAP mmol/L 11 GLUCOSE mg/dL 111 BUN SERUM mg/dL 14 CREATININE mg/dL 0.94 CALCIUM mg/dL 9.0 ALBUMIN g/dL 3.7 ALK PHOS Units/L 116 ALT Units/L 14 AST Units/L 25 BILIRUBIN TOTAL mg/dL 0.2 WBC K/cumm 8.1 HEMOGLOBIN g/dL 11.1* HEMATOCRIT % 34.9* PLATELETS K/cumm 325 NEUTROS PCT % 66.1 LYMPHS PCT % 19.3 MONOS PCT % 9.6 EOS PCT % 3.1 APTT sec 34 INR 1.25* Micro: Lab Results Component Value Date MICROBIOLOGY Amended Report - Complete: Negative 12/06/2023 MICROBIOLOGY Final Report: Rare Staphylococcus epidermidis (.) 12/02/2023 [ ] HH ordered with IV CTX x6 weeks [ ] DC today Assessment/Plan: 78 y.o. female with above injury/deformity. Plan for ID consult and IV abx Precautions: thoracic and lumbar precautions Immobilization: TLSO Activity: Up ad mega DVT ppx: Home eliquis Therapy: PT/OT for OOB/mobilization as tolerated Drain: n/a Antibiotics: Per ID Recs as follows: CTX Cultures: None new Bedoya: n/a Wound Care: n/a Diet: Regular Imaging: None Additional Needs: infusions Ortho Spine is the primary team, and will manage this patient's hospital course. Dispo: pending Follow-Up: Patient has follow up scheduled on 02/[address] Michelle located at [facility] Edited by: Ivelisse Olivares MD at 01/07/2024 [id number] Please call with questions during daytime. See below for overnight issues. If you know the resident's name on the appropriate orthopaedic surgery team, please use [email or web address] to page resident directly. If questions arise and the appropriate resident can't be reached or you are calling overnight, please contact [phone] ([facility] 7:30 PM - 6:30 AM - Floor Resident) or [phone] (24 hours/day - Consult Resident) Cosigned by Jeremy Michelle MD at 01/07/2024 6:16 PM CDT Associated attestation - Jeremy Michelle MD - 01/07/2024 6:16 PM CDT I have seen and examined the patient on 01/07/24. I agree with the findings and plan of care as documented in the resident's/fellow's note. This is a very pleasant 78-year-old who is well known to me. She is doing well intact throughout PICC line in place no changes good appetite feels well. Reviewed labs again. Patient will get IV antibiotics and trend CRP over time. Discussed elevated CRP postoperatively which may or may not be meaningful this point but will be helpful to trend moving forward. I apologized again to the patient thatshe had to return to the hospital for her IV antibiotic set up. All questions answered today and the patient agrees with the plan moving forward. She will let us know if there is any questions or problems. Plan is for discharge in the morning with home health. Jeremy Michelle MD PhD Attending Spine Surgeon [employer] [facility] Orthopaedic and Neurological Surgery [facility] Orthopaedics [facility] documented in this encounter H&P Notes * Jeremy Michelle MD - 01/06/2024 5:44 PM CDT Seen and examined by me. 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 Scrapings from her L1 pedicle were sent and ultimately grew rare cultures of pansensitive staph epi. We discussed options moving forward inclu ding chance of contaminant versus real infection. Ultimately after consulting with Infectious Disease and with the patient we decided to do 1 course of IV antibiotics. The patient was agreeable to this. The patient admitted to the floor and seen and examined by me. She remains intact and with relatively little pain. She is intact in her bilateral upper and lower extremities. Plan will be to get her PICC line and IV antibiotics started with likely discharge in the morning. This has been discussed with team members as well as with the ID team. Patient understands and agrees with the plan. All questions answered today Jeremy Michelle MD PhD Attending Spine Surgeon [employer] [facility] Orthopaedic and Neurological Surgery [facility] Orthopaedics [facility] * González Padmini LU Higginbotham - 01/06/2024 5:17 PM CDT Orthopaedic Surgery History and Physical Team: Orthopedic Spine Attending: Dr. Ramos Michelle Subjective Patient is a 78 y.o. female with chief complaint of positive intraoperative culture. HPI: 78 y.o. female s/p PSF 12/02/[address] [facility]. She had a revision of her nonunion and was taken upto T10. She has had a rather uneventful post operative course at home. However, on her labs she hada rare pansensitive staph epi result from the L1 scraping intraoperative. She was on perioperative Ancef and vanc (pre and postop antibiotics) and had vanc placed directly in the pedicles at the timeof scraping and washing them. There was no metal in this area. Due to this is a pansensitive staph epi this might be just a contaminant. Given that she did have a nonunion it was discussed with her to admit her for a PICC line and IV antibiotics. She denies any fever, drainage or chills from her incision site. Past Medical History: Diagnosis Date Allergic rhinitis Anxiety unknown maybe 1989 Arthritis 2018 Atrial fibrillation (CMS/HCC) (HCC) Auditory vertigo Meniere's disease Coronary artery disease Depression 1989 Heart disease Afib 2019 HL (hearing loss) HLD (hyperlipidemia) Meniere's disease Microvascular angina (HCC) Mixed conductive and sensorineural hearing loss 1989 Osteoporosis 2013 Tinnitus Past Surgical History: Procedure Laterality Date BACK SURGERY 2017 REVISION November 2023; lower back, 2017, 2018 BRAIN SURGERY Left Ear cochlear implant 2019 CHOLECYSTECTOMY Cholecystectomy COCHLEAR IMPLANT Left 06/19/2020 IR INJECTION ARTHROGRAM SI JOINT BILATERAL WITH GUIDANCE Bilateral 02/15/2021 IR INJECTION ARTHROGRAM SI JOINT LEFT INCLUDES IMAGING GUIDANCE Left 09/06/2021 JOINT REPLACEMENT Hip replacement, L - 2013, R - 2014 - Nataliya OTHER SURGICAL HISTORY 1998 Sectioning of left vesibular nerve SPINE SURGERY 2017, 2018, 2019, 2020 TOTAL HIP ARTHROPLASTY Bilateral 2014 VESTIBULAR NERVE SECTION Left Medications Prior to Admission Medication Sig Dispense Refill Last Dose acetaminophen 500 mg capsule Take 2 capsules (1,000 mg total) by mouth every 6 (six) hours 90 tablet 0 ALPRAZolam (XANAX) 0.25 mg tablet Take 1 tablet (0.25 mg total) by mouth nightly as needed for anxiety 30 tablet 0 amiodarone (PACERONE) 200 mg tablet Take 2 tablets (400mg) the evening of 12/14/23. Starting 12/15/23, take one tablet (200mg) once a day. Follow up with your free lance artist within one week of discharge.30 tablet 0 atorvastatin (LIPITOR) 20 mg tablet Take 1 tablet (20 mg total) by mouth nightly CHOLECALCIFEROL, VITAMIN D3, ORAL Take 1 tablet by mouth every morning DULoxetine DR (CYMBALTA) 60 mg capsule Take 1 capsule (60 mg total) by mouth every morning Eliquis 5 mg tablet DO NOT TAKE THIS MEDICATION UNTIL JANUARY 03, 2024. ON JANUARY 03, 2024 YOU MAY RESUME TAKING 5MG BY MOUTH TWICE A DAY. furosemide (LASIX) 40 mg tablet Take 1 tablet (40 mg total) by mouth 2 (two) times a day This medication dose was changed during your admission. Follow up with your free lance artist within one week of discharge regarding this medication. 60 tablet 0 methocarbamoL (ROBAXIN) 750 mg tablet Take 1 tablet (750 mg total) by mouth every 8 (eight) hours 90 tablet 2 metoprolol tartrate (LOPRESSOR) 25 mg immediate release tablet TAKE 1 TABLET(25 MG) BY MOUTH TWICE DAILY (Patient taking differently: Take 1 tablet (25 mg total) by mouth 2 (two) times a day) 180 tablet 1 multivitamin with folic acid 400 mcg tablet Take 1 tablet by mouth daily senna-docusate (PERICOLACE) 8.6-50 mg Take 2 tablets by mouth 2 (two) times a day as needed for constipation Do not take if you experience diarrhea 60 tablet 0 Allergies Allergen Reactions Adhesive Rash and Blisters Surgical tape Chlorhexidine Rash Sulfa (Sulfonamide Antibiotics) Hives and Rash Gabapentin Other (See comments) Retain water Social History Tobacco Use Smoking status: Never Smokeless tobacco: Never Substance and Sexual Activity Drug use: Never Sexual activity: Not Currently Partners: Female control/protection: None Comment: same sex Alcohol Use: Not At Risk (12/02/2023) AUDIT-C Frequency of Alcohol Consumption: 4 or more times a week Average Number of Drinks: 1 or 2 Frequency of Binge Drinking: Never Family History Problem Relation Age of Onset [...] Hyperthermia Neg Hx Pseudochol deficiency Neg Hx Review of Systems: Constitutional: Negative for chills and fever. HENT: Negative for acute hearing loss Eyes: Negative for pain and visual disturbance. Respiratory: Negative for cough and shortness of breath. Cardiovascular: Negative for chest pain and palpitations. Gastrointestinal: Negative for abdominal pain and vomiting. Genitourinary: Negative for dysuria and hematuria. Musculoskeletal: Pain in low back Skin: Negative for acute rash. Incision well approximated and intact. Neurological: Negative for seizures and syncope. Review of systems per HPI and otherwise all other systems are negative. Objective Most Recent Vitals: Vitals: 01/06/24 1444 BP: 99/54 Pulse: 59 Resp: 16 Temp: 36.8 ??C (98.2 ??F) SpO2: 96% Physical Exam: Gen: Well-developed, well-nourished, in no acute distress. Alert and oriented: x3 Normal respirations, no dyspnea with speaking No obvious deformity, skin intact, no ecchymosis No tenderness to palpation throughout extremity Fingers warm and well perfused Toes warm and well perfused Lumbar incision healing well, well approximated Labs: No results found for this or any previous visit (from the past 48 hour(s)). Imaging: XR Scoliosis 4 or 5 Views Result Date: 01/05/2024 1. Unchanged posterior instrumented fusion of T10 through the pelvis with bilateral iliac screws. The radiology attending physician has personally reviewed this study, and had reviewed and/or edited this written report and agrees with it. Electronically signed by: Greg Gonzalez MD Assessment/Plan: Patient is a 78 y.o. female admitted for Spinal infection/positive culture. Principal Problem: Infection of lumbar spine (CMS/HCC) (HCC) Plan for nonoperative management TLSO when OOB Pain control per home meds Regular diet Pre-op work-up: CBC/BMP/ESR//CRP/PTT/INR IPAP eval Antibiotics: Ceftriaxone 2000mg q24hr DVT ppx: SCDs, home Eliquis Consults: ID. Appreciate recommendations. Cosigned by Jeremy Michelle MD at 01/07/2024 6:07 PM CDT Associated attestation - Jeremy Michelle MD - 01/07/2024 6:07 PM CDT I have seen and examined the patient on 01/06/2024. I agree with the findings and plan of care as documented in the resident's/fellow's note.. Seen and examined by me. Please see separate full note. All questions answered. Plan for IV antibiotics as noted. CRP drawn and elevated although difficult to tell exactly what this means given postoperative status including ICU stay for significant heart rhythm abnormalities postoperatively. However we will be useful in follow-up for trending. Jeremy Michelle MD PhD Attending Spine Surgeon [employer] [facility] Orthopaedic and Neurological Surgery [facility] Orthopaedics [facility] documented in this encounter Procedure Notes * Jolene Menjivar, RN - 01/07/2024 12:20 AM CDT Images from the original note were not included. Vascular Access Nurse: Procedure Note Summary of treatment provided to patient today is as follows : . Bedside Procedure Time out/Checklist (Last 4 Hours) Pre-Op Checklist Row Name 01/06/24 4951 01/06/24 1010 Patient/Chart Verification Patient ID Verified Verbal;Armband -ST -- Pre-op Lab/Test Results Available Not applicable -ST -- Antibiotic Status Not applicable -ST -- Procedure Verification Correct Patient Yes -ST -- Correct Procedure Yes -ST -- Correct Laterality Yes -ST -- Correct Site Yes -ST -- Site Marked Not applicable -ST -- Patient Preparation Temp -- 37.1 ??C (98.7 ??F) - User [place] (r) = Recorded By, (t) = Taken By, (c) = Cosigned By Initials Name SR Sivan Ford Sheri L., RN Vascular Access Documentation (Last 4 Hours) [facility] Additional Procedures Row Name 01/06/24 1177 PICC Screening Questionnaire Order written on the chart for PICC insertion or placement? Y -ST Information form/Consent Obtained from POA/ Family N -ST Is there an order from Renal giving ok to place PICC line? N/A -ST Are there any location restrictions? Y -ST Which location is NOT accessible for line placement? Left -ST Reason location not accessible for line placement Pacemaker -ST Does the patient have history of DVT or SVC syndrome? N -ST Does the patient currently have blood clots in chest / arms? N -ST Review of all IV meds/drips completed Yes -ST Patient allergies reviewed? Y -ST Labs Reviewed if applicable INR;Blood Cultures;Platelet count;Creatinine -ST Procedures Line Type PICC single -ST Time in 2329 Time out 24 Time Calculation (min) 55 min -ST Vascular Access Procedures PICC line assessment;PICC line placement;PICC dressing change;Education PICC/Midline -ST PICC Single Lumen 01/06/24 Non-tunneled Power Right Basilic;Upper arm Line Properties Placement Date: 01/06/24 -ST Placement Time: 17 Catheter Time Out Checklist Completed: Yes -ST Hand Hygiene Performed: Yes -ST Site Prep: Chlorhexidine -ST Site Prep Agent has Completely Dried Before Insertion: Yes -ST All 5 Sterile Barriers or Appropriate Barriers Used (Gloves, Gown, Cap, Mask, Large Sterile Drape): Yes -ST Local Anesthetic: Injectable -ST, 2ml 1% Lidocaine Comfort Measures: Position of comfort -ST CVC Type: Non-tunneled -ST Power injectable: Power -ST Lumen # 1: #1 Purple, -ST Size (Fr): 4 -ST Orientation: Right -ST Location: Basilic;Upper arm -ST Technique: Modified seldinger;Standard insertion technique with peel away sheath;Internal stiffener stylet removed easily;Ultrasound used to locate and cannulate vein -ST Lot #: [id number] -ST Expiration Date: 11/23/24 -ST Trimmed Length (cm) : 39 cm -ST Line Tip Location : Central -ST Initial Extremity Circumference (cm): 31 cm -ST Circumference Reference Point: 6cm above insertion site -ST Initial External Length Catheter (cm): 1 cm -ST Placement Verification: X-ray -ST Line Secured by : Marcus casarez -ST, sescure port glue Inserted by: Lelia Tello RN -ST Assisted By: Levy Menjivar RN -ST Insertion attempts: 1 -ST Patient Tolerance: Tolerated well -ST Description (optional): 4fr BARD SL Power PICC -ST Site Assessment Clean and dry -ST External Length rk (cm) 1 cm -ST Extremity Circumference (cm) 31 cm -ST Dressing Type CHG Dressing -ST Dressing Status New;Clean, dry, intact;Occlusive -ST Dressing Change Due 01/14/24 -ST Observer Present Yes -ST Lumen #1 Status Blood return brisk;Disinfectant cap in place;Flushes easily;Saline locked;Needleless access device in place -ST Lumen #1 Interventions Connections checked and tightened;Disinfectant cap changed;Flushed -ST Line Necessity Reason Reviewed With Care Team Needed upon discharge for parts counterman use (e.g. long-term antibiotics) -ST User [place] (r) = Recorded By, (t) = Taken By, (c) = Cosigned By Initials Name ST Jolene Menjivar RN Plan: Follow up: patient will need chest xray to verify tip placement of R SL Power PICC. Jolene Menjivar RN documented in this encounter Consult Notes * Susan Foley MD - 01/06/2024 2:42 PM CDTAssociated Order(s): CONSULT TO BONE AND JOINT INFECTIOUS DISEASE; CONSULT TO BONE AND JOINT INFECTIOUS DISEASE Infectious Disease Initial Consult Note Infectious Disease Team: Orthopedic Infectious Diseases Contact Information: Please see [facility] Treatment Team listing for up-to-date contact information. Requesting Physician: Jeremy Michelle* Reason for Consult: Diagnostic and treatment recommendations, as well as assistance with follow up care. Subjective Chief Complaint: Concern for spinal hardware infection HPI: The patient is a 78 y.o. 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 Patient developed nonunion [...] also notes numbness at the incision site. Past Medical History: No date: Allergic rhinitis unknown maybe 1990: Anxiety 2019: Arthritis No date: Atrial fibrillation (CMS/HCC) (HCC) No date: Auditory vertigo Comment: Meniere's disease No date: Coronary artery disease 1990: Depression Afib 2020: Heart disease No date: HL (hearing loss) No date: HLD (hyperlipidemia) No date: Meniere's disease No date: Microvascular angina ([facility]) 1990: Mixed conductive and sensorineural hearing loss 2014: Osteoporosis No date: Tinnitus Past Surgical History: 2017: BACK SURGERY Comment: REVISION November 2023; lower back, 2017, 2018 Left Ear cochlear implant 2020: BRAIN SURGERY No date: CHOLECYSTECTOMY Comment: Cholecystectomy 06/19/2020: COCHLEAR IMPLANT; Left 02/15/2021: IR INJECTION ARTHROGRAM SI JOINT BILATERAL WITH GUIDANCE; Bilateral 09/06/2021: IR INJECTION ARTHROGRAM SI JOINT LEFT INCLUDES IMAGING GUIDANCE; Left No date: JOINT REPLACEMENT Comment: Hip replacement, L - 2013, R - 2014 - Nataliya 1998: OTHER SURGICAL HISTORY Comment: Sectioning of left vesibular nerve 2017, 2017, 2018, 2020: SPINE SURGERY 2014: TOTAL HIP ARTHROPLASTY; Bilateral No date: VESTIBULAR NERVE SECTION; Left HOME MEDICATIONS : acetaminophen 500 mg capsule alendronate (FOSAMAX) 70 mg tablet ALPRAZolam (XANAX) 0.25 mg tablet amiodarone (PACERONE) 200 mg tablet atorvastatin (LIPITOR) 20 mg tablet azelastine (ASTELIN) 137 mcg (0.1 %) nasal spray CHOLECALCIFEROL, VITAMIN D3, ORAL DULoxetine DR (CYMBALTA) 60 mg capsule Eliquis 5 mg tablet fexofenadine-pseudoephedrine (KIMBERLY-D) 60-120 mg per 12 hr tablet fluticasone (FLONASE) 50 mcg/actuation nasal spray furosemide (LASIX) 40 mg tablet lidocaine (ASPERCREME) 4 % adhesive patch,medicated methocarbamoL (ROBAXIN) 750 mg tablet metoprolol tartrate (LOPRESSOR) 25 mg immediate release tablet multivitamin with folic acid 400 mcg tablet senna-docusate (PERICOLACE) 8.6-50 mg Current Facility-Administered Medications Ordered in Psychiatric Medication Dose Route Frequency Provider Last Rate Last Admin lidocaine (PF) (XYLOCAINE) 10 mg/mL (1 %) preservative free injection 10-20 mg 1-2 mL subcutaneous Once [place], [place] sodium chloride 0.9% flush 5-10 mL 5-10 mL intra-catheter Q12H ELAINA [place], [place] sodium chloride 0.9% flush 5-20 mL 5-20 mL intra-catheter PRN [place], LU No current Psychiatric-ordered outpatient medications on file. Active Lines/Ports/Devices: Patient Allergies: Allergies Allergen Reactions Adhesive Rash and Blisters Surgical tape Chlorhexidine Rash Sulfa (Sulfonamide Antibiotics) Hives and Rash Gabapentin Other (See comments) Retain water Social History Social History Narrative General Social History Comments: female spouse reports that she has never smoked. She has never used smokeless tobacco. She reports that she does not use drugs. Patient reports consuming alcoholic drinks , with a daily consumption of drinks. Patient denies daily consumption of 6 or more alcoholic drinks at one occasion. Family history reviewed and non-contributory Family History Problem Relation Age of Onset [...] Hyperthermia Neg Hx Pseudochol deficiency Neg Hx Review of Systems: Constitutional: No fevers, chills HEENT: No headache, visual loss or yellow sclerae, no congestion, rhinorrhea or odynophagia. Respiratory: No shortness of breath, cough or sputum. Cardiovascular: No chest pain. Gastrointestinal: No abdominal pain, anorexia, nausea, vomiting or diarrhea. Genitourinary: No dysuria. Musculoskeletal:+ back pain Skin: No rashes or skin lesions. Neurological: No weakness, numbness or tingling. Hematological: No enlarged lymph nodes. All other systems reviewed and are negative. Objective Vitals: 24hr Min/Max: No data recorded Most Recent : There were no vitals filed for this visit. There were no vitals filed for this visit. No intake/output data recorded. Physical Exam: GENERAL: Awake, not in cardiorespiratory distress HEENT: Anicteric sclerae, pink conjunctivae, moist mucosae, no pharyngeal erythema, no neck masses LUNGS: Normal breath sounds, no crackles, no wheezes HEART: No heart murmurs, no gallops ABDOMEN: Nondistended, nontender, and soft abdomen EXTREMITY: No edema, no clubbing BACK: Surgical incision healed, no tenderness to papalpation DERM: No exanthems or enanthems LYMPH: No cervical or inguinal lymphadenopathy NEURO: Oriented to time, place, person; pupils equally reactive to light, cranial nerves intact, nomotor or sensory deficits Lab/Radiology/Diagnostic Review: I reviewed the following laboratory and imaging result(s). Micro: Lab Results Component Value Date MICROBIOLOGY Amended Report - Complete: Negative 12/06/2023 MICROBIOLOGY Final Report: Rare Staphylococcus epidermidis (.) 12/02/2023 Urinalysis: Resulted in the Past 12 Months 11/12/23 1708 COLORU Straw CLARITYU Clear SPECGRAVU 1.010 PHURINE 7.0 PROTURQL Negative GLUCOSEUR Negative KETONESU Negative BLOODUR Negative NITRITEU Negative LEUKESTUR Negative Hematology/Chemistry: CBC: Lab Results Component Value Date WBC 8.9 12/07/2023 HGB 9.1 (L) 12/07/2023 HCT 26.9 (L) 12/07/2023 LABPLAT 272 12/07/2023 NEUTOPHILPCT 77.4 12/03/2023 LYMPHOPCT 11.2 12/03/2023 MONOPCT 7.3 12/03/2023 EOSPCT 3.0 12/03/2023 CMP: Lab Results Component Value Date SODIUM 136 12/07/2023 POTASSIUM 4.2 12/07/2023 CHLORIDE 102 12/07/2023 CO2 27 12/07/2023 ANIONGAP 7 12/07/2023 GLUCOSE 98 12/07/2023 BUNSER 7 12/07/2023 CREATININE 0.63 12/07/2023 CALCIUM 8.2 (L) 12/07/2023 ALBUMIN 2.8 (L) 12/04/2023 ALKPHOS 84 12/04/2023 ALT 76 (H) 12/04/2023 AST 132 (H) 12/04/2023 BILITOT 0.3 12/04/2023 Creatinine:Estimated Creatinine Clearance: 53 mL/min (by C-G 65 yr and older- minimum SCr 0.8 basedon SCr of 0.63 mg/dL). Resulted in the Past 12 Months 12/07/23203212/06/23205012/05/23 193 CREATININE 0.63 0.62 0.56* Inflammatory Markers: Resulted in the Past 12 Months 11/12/23 1708 SEDRATE 9 CRP 1.5 Screening Results RPR:No results found for: LABRPR GC: No results found for: CTRACHOMATIS , NGONORRHOEAE Hepatitis Serologies: No results found for: HEPAIGG , HEPAIGM , HEPBSAG , HEPBSAB , HEPBCAB , HEPCAB Virologic Testing: HIV Screen:No results found for: [id number] CD4:No results found for: CD4ABS , CD4PCT Common Virologic Results: No results found for: SUL2AHZ , CD4ABS , CD4PCT , NUCLEOSRT , NONNUCRTMUT , PROTEASEMUT , INTEGRASEMUT , PPD , TOXOIGG Diagnostics: EKG: Lab Results Component Value Date VR 126 12/04/2023 AR 68 12/03/2023 PRIMSEC 192 12/03/2023 QRSIMSEC 112 12/04/2023 QTIMSEC 354 12/04/2023 QT 512 12/04/2023 PA 37 12/03/2023 RA 11 12/04/2023 TA 184 12/04/2023 DIAG 12/04/2023 Atrial fibrillation with rapid ventricular response with occasional ventricular- paced complexes Incomplete left bundle branch block Marked ST abnormality, possible inferolateral subendocardial injury Abnormal ECG Confirmed by Khoi CARDENAS, [facility] ([id number]) on 12/07/2023 3:12:42 PM Echo:Results for orders placed during the hospital encounter of 12/02/23 Transthoracic Echo (TTE) Complete W Doppler/CF Narrative Patient name: Macie Briseno Date of test: 12/04/2023 Type of test: TTE w/Doppler Hospital #: 0 Date of : 1945 (F) [employer] Workers: Johnathan Diez RDCS Referring Physician: LEN KLEIN MD Contrast Agent: 1.1 ml Optison Administered, (1.9 ml wasted). Contrast Administered by: Supervised/Interpreted by: Edgar Arroyo MD Diagnosis: Location: [facility] Reason for test: AFib w/ RVR MV Structure: Normal, MV Motion: Normal, Mitral Annulus: Normal AV Structure: tricuspid and is mildly thickened, AV Motion: Normal Aotic root: Normal, TM: Normal, PV: Normal Valvular Vegetations: none seen, Mass/Thrombi: none seen RA: Normal Measurements: M-Mode Normal Aotic Root: <3.8 LA: <3.8 RV: <2.8 LV(ED): <5.7 LV(ES): Variable 2D Linear Normal Aotic Root: 3.2 cm <3.6 Ao Indexed: 1.7 cm/M2 <2.0 LA: <3.8 RV: <4.2 LV(ED): 4.2 cm <5.3 LV(ES): 2.5 cm <3.5 2D Vol. Normal Indexed Indexed Normal RA: 31.0 ml 16.6 ml/M2 9-33 LA: 70.0 ml 37.5 ml/M2 16-34 RV: <11.6 LV(ED): 85.0 ml 46-106 45.5 ml/M2 <62 LV(ES): 20.0 ml 14-42 10.7 ml/M2 <25 3D Vol. Indexed Normal LV(ED): <62 LV(ES): <24 LV EF: 76 % (Normal: >=54%) LV Septum: 1.1 cm (Normal: <0.9 cm) Wall Motion Scoring (1=Normal 2=Hypo 3=Akinetic 4=Dyskin./Aneurysm 0=Not visualized) Parasternal Long [place]:MAS=1 BAS=1 MIL=1 OLGA=1 Parasternal Short [place]:MAS=1 MIS=1 NH=1 MIL=1 MAL=1 MA=1 Apical 4 Chambers:=1 MIS=1 BIS=1 BAL=1 MAL=1 AL=1 AC=1 Apical 2 Chambers:AI=1 NH=1 BI=1 BA=1 MA=1 AA=1 AC=1 LV Global Longitudinal Strain: -11.5% (Normal <-17%) RV Global Longitudinal Strain: -12.6% (Normal <-17%) LV Function: Normal LV Ejection Fraction, (EF=54-74%) RV Function: Normal Septal Motion: Normal Pericardial Effusion: none seen Atrial Septum: Normal DOPPLER/COLOR FLOW DOPPLER RESULTS: Diastolic Function: Normal Tricuspid Valve: mild TV regurgitation Pulmonic Valve: normal PV AV Regurgitation: No AR seen AV Stenosis: no AV Area: cm2 AV Pressure Gradient (mmHg): Mean: 0, Peak:0 MV Regurgitation: Mild MR MV Stenosis: no MS MV Area: cm2 MV Pressure Gradient (mmHg): Mean: 0 MV ERO: cm Regurg. Vol.: ml/beat Regurg. Frac.: % PA Pressure: 25+RA mmHg DOPPLER/COLOR FOLOW DOPPLER COMMENTS: No AR seen, Mild MR, no , no MS, normal TV, normal PV. Diastolic function: Normal CONTRAST: 1.1 ml Optison Administered, (1.9 ml wasted). SUMMARY: LV cavity size is normal with hyperdynamic function. LVEF 76%. There is moderate lateral and septal apical hypertrophy (1.4 cm) suggesting apical variant HCM. No apical aneurysm noted. No LVOT obstruction. LA is mildly dilated. Normal RV cavity size and function. Mild MR. Mild TR. Estimated PA systolic pressure 25+RA(3) mmHg. Reduced apical LV strain c/w apical hypertrophic CM. Diastolic function indicates normal LV filling pressures. PM wire seen in RV. Normal Inferior vena cava. Normal aorta. No prior study. Confirmed on 12/04/2023 - 16:27:55 by Edgar Arroyo MD By signing this report, the attending free lance artist certifies that he or she has personally supervised and interpreted the echocardiogram and has reviewed and or edited and agrees with the written comments contained within the report. Imaging: XR Scoliosis 4 or 5 Views Result Date: 01/05/2024 1. Unchanged posterior instrumented fusion of T10 through the pelvis with bilateral iliac screws. The radiology attending physician has personally reviewed this study, and had reviewed and/or edited this written report and agrees with it. Electronically signed by: Greg Gonzalez MD XR Scoliosis 4 or 5 Views Result Date: 01/05/2024 1. Unchanged posterior instrumented fusion of T10 through the pelvis with bilateral iliac screws. The radiology attending physician has personally reviewed this study, and had reviewed and/or edited this written report and agrees with it. Electronically signed by: Greg Gonzalez MD Assessment/Plan Infection of lumbar spine (CMS/HCC) ([facility]) Assessment & Plan The patient is a 78 y.o. 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 Recently admitted for revision with extension up to T10 and extendingdown to pelvis PSIF T12/L1 and L1 removal of hardware/screws bilaterally on 12/01. Per op note after removing L1 pedicle screws bilaterally, the holes were debrided and packed with bone graft, vancomycin placed directly in the pedicles, no obvious infection seen but cultures obtained. OR culture grewMSSE. Postop course complicated with Vtach and transferred [...] off, will arrange follow up in clinic Today, I am treating the patient for spine infection which can cause abscess, osteomyelitis, hardware failure in the short-term future in the absence of appropriate treatment, as described in the note., Reviewed notes by ortho to determine appropriate plan of care as in the note., Estimated Creatinine Clearance: 53 mL/min (by C-G 65 yr and older- minimum SCr 0.8 based on SCr of 0.63 mg/dL). - reviewed; antibiotics recommended above are dosed accordingly., and The patient is being intensively monitored for antimicrobial toxicity from ceftriaxone with the following tests: CBC and CMP. documented in this encounter Miscellaneous Notes * Provider Query - Susan Foley MD - 01/08/2024 11:42 AM CDT Specify the type of Osteomyelitis and document in the medical record and on the form below. __x_ Acute osteomyelitis L1 ___ Chronic osteomyelitis L1 ___ Other, specify below Clinical Indicators/Treatments: Documentation includes: 01/[address] Miguel Nichols: Diagnosis: L1 discitis/osteomyelitis Retained Infected Hardware (Yes/No/Unclear): Yes Organism(s): MSSE Antibiotics Start Date: 12/05 Organism(s): MSSE The patient is a 78 y.o. 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 Recently admitted for revision with extension up to T10 and extendingdown to pelvis PSIF T12/L1 and L1 removal of hardware/screws bilaterally on 12/01. Per op note after removing L1 pedicle screws bilaterally, the holes were debrided and packed with bone graft, vancomycin placed directly in the pedicles, no obvious infection seen but cultures obtained. OR culture grewMSSE. Postop course complicated with Vtach and transferred to ICU started on amiodarone. She was discharged home on 12/13. Seen in ortho clinic 01/04 and was doing well, surgical incisions appeared to be healing. Cultures reviewed and given possible infected nonunion she was readmitted to start IV antibiotics. She was started on IV ceftriaxone with plan for 6 weeks, since no hardware retained at nonunion site no clear indication for suppression. Tx includes: IV CTX x 6 weeks References: From the ICD-10-CM Official Guidelines for Coding and Reporting, use of terms such as likely, suspected, possible, or probable (associated with a specific diagnosis that is being evaluated, monitored, or treated as if it exists) are acceptable and can be coded in the inpatient setting when documented at the time of discharge. This documentation will become part of the patient???s medical record. Regards, Delicia Santana RN, [facility] Clinical Documentation Blanket Washer [phone] [email or web address] * Plan of Care - Estephania Licea RN - 01/07/2024 5:47 PM CDT Patient instructed on proper handling, storage, and administration of IV antibiotics via IV push for Ceftriaxone. Patient verbalized understanding of all information presented and any questions addressed appropriately. With return demonstration patient demonstrated appropriate understanding of process and compliance with aseptic technique in flushing, administration of medication, and heparinizing PICC and use of Curos Caps. Patient given access to [facility] Infusion IV Push Educational Video and [facility] Method Handout. Will add extension tubing prior to discharge. Estephania Licea RN [facility] Home Health & Infusion Program Director [employer] [phone] * Plan of Care - Estephania Licea RN - 01/07/2024 12:40 PM CDT Infusion referral received. Will need to assess patient and/or family for home infusion appropriateness, verify benefits for home infusion, and educate patient/family on home infusion process. Referrals are processed between 8am - 4:30pm Thursday - Thursday. For after hour emergencies please call [phone]. Any referrals received after 4pm will be processed the next day. For discharge planning purposes please keep in mind that referrals can take 24 or more hours to process. Estephania Licea RN [facility] Home Health & Infusion Program Director [employer] [phone] * ACP (Advance Care Planning) - Joya Duckworth MSW - 01/07/2024 11:23 AM CDT Advance Care Planning Advance Care Planning Conversation The patient and/or family consented to a voluntary Advance Care Planning conversation. Individuals present for the conversation: patient Advance Directive: Yes On file: Yes Power of Edger Feeder Name: Sunita Miranda Relationship: Spouse First Alternative Health Agent: hTais Pandya (friend) [phone] Summary of the conversation: Patient has DPOA on file. SW confirmed patients DPOA is Sunita Miranda and first alternative health agent is Thais Pandya (friend). The services provided in this conversation and described in this note are non- billable and to be used for ongoing clinical care only. Joya Duckworth [facility] Special[facility] Please see Psychiatric Treatment Team for contact information. * Initial Assessments - Joya Duckworth MSW - 01/07/2024 11:22 AM CDT Social Work Assessment Clinical Dx: Infection of lumbar spine (CMS/HCC) (HCC) Past Medical History: Date of last inpatient admission: Previous admit date: 12/02/2023 Number of inpatient admissions in past year: 2 Reason for Current Hospitalization (Pt/Caregiver Stated): infection (01/07/24 1114) Patient Information: Information Obtained From: Patient Marital Status: Does Pt have Legal Guardian, Surrogate Decision Maker or Healthcare Agent? : Yes-DPOA DPOA Name/Phone: Sunita Miranda (Spouse) [address] 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 Source: Medicare advantage Race: White/ Ethnicity: Non- Gender Identity: Female Service : None (01/07/241113) Current Situation: Current Situation Living Arrangements: Spouse/significant other Type of Residence: Private residence Income: Fdc/Pension Education Level : College Degree How do you Pay for Medication: Insurance Current Transportation: Own vehicle What do you do with your Free Time: Art club (01/07/241113) Legal History: Legal History Legal Information : No legal issues (01/07/241113) Support Systems and Spirituality: Support Systems and Spirituality Support System: Spouse, Friends/neighbors Spouse Name/Contact Information: Sunita Miranda (Spouse) [address] [place] [address] [facility] [phone] (H) [phone] (M) Friends/Neighbors Name/Contact Information: Thais Pandya (friend) [phone] Are there any Yazidism Practices that are important to maintain while admitted?: No Do you have Cultural Factors that are important to you?: No Description of Childhood: Normal History of physical abuse? : No History of physically abusing others? : No History of sexual abuse?: No History of sexually abusing others? : No History of Mental/Emotional Abuse? : No (01/07/241113) Strengths, Assets, Liabilities and Stressors: Strengths, Assets, Liabilities, and Stressors Strengths (Must Choose Two): Financial stability, Access to housing/residential stability, Interpersonal relationships and supports,i.e., family, friends, peers, Vocational interests, i.e., hobbies Patient Assets: Insured, Transportation, Use of Supports, MD, Education, Home, Income, Supportive friends, Supportive family Does Pt have access to Employee Assistance Program: No Patient Barriers : Poor physical health Current Stressors: Chronic illness (01/07/241113) SDOH Transportation Needs: No Transportation Needs (01/07/2024) PRAPARE - Transportation Lack of Transportation (Medical): No Lack of Transportation (Non-Medical): No Financial Resource Strain: Low Risk (01/07/2024) Overall Financial Resource Strain (CARDIA) Difficulty of Paying Living Expenses: Not hard at all Housing Stability: Low Risk (01/07/2024) Housing Stability Vital Sign Unable to Pay for Housing in the Last Year: No Number of Times Moved in the Last Year: 1 Homeless in the Last Year: No Social Connections: Moderately Integrated (01/07/2024) Social Connection and Isolation Panel [NHANES] Frequency of Communication with Friends and Family: More than three times a week Frequency of Social Gatherings with Friends and Family: More than three times a week Attends Yazidism Services: Never Active Member of Clubs or Organizations: Yes Attends Club or Organization Meetings: More than 4 times per year Marital Status: Recent Concern: Social Connections - Moderately Isolated (12/15/2023) Social Connection and Isolation Panel [NHANES] Frequency of Communication with Friends and Family: More than three times a week Frequency of Social Gatherings with Friends and Family: Twice a week Attends Yazidism Services: Never Active Member of Clubs or Organizations: No Attends Club or Organization Meetings: Never Marital Status: Food Insecurity: No Food Insecurity (01/07/2024) Hunger Vital Sign Worried About Running Out of Food in the Last Year: Never true Ran Out of Food in the Last Year: Never true Tobacco Use: Low Risk (01/05/2024) Patient History Smoking Tobacco Use: Never Smokeless Tobacco Use: Never Passive Exposure: Not on file Alcohol Use: Not At Risk (12/02/2023) AUDIT-C Frequency of Alcohol Consumption: 4 or more times a week Average Number of Drinks: 1 or 2 Frequency of Binge Drinking: Never PHQ Screening Over the last 2 weeks, how often have you been bothered by any of the following problems? Little Interest or Pleasure in Doing Things: Not at all Feeling Down, Depressed, or Hopeless: Not at all PHQ-2 Total Score (If total score is 3 or more points, staff should administer the PHQ-9): 0 Over the past 2 weeks, how often have you been bothered by any of the following problems? Little Interest or Pleasure in Doing Things: Not at all Feeling Down, Depressed, or Hopeless: Not at all PHQ-2 Total Score (If total score is 3 or more points, staff should administer the PHQ-9): 0 E-Cigarette/Vaping Questions Responses E-cigarette/Vaping Use Never User Substance Abuse, Mental Health, and Trauma History: Chemical Dependency, Mental Health & Trauma History Chemical Dependency: No concerns reported or noted. Mental Health: Paitent denies current and past abuse, mental health diagnosis, and HI/SI. Chart review notes history of Depression. (01/07/24 1114) Risk to Self and Others: Risk to Self and Others Violence risk to self in past 6 months? : No Self Harm/Suicidal Ideation Plan: No Previous Self Harm/Suicidal Attempts: No Violence risk to others in past 6 months? : No Any lifetime risk of violence to others? : No Current Plans to Harm Another: No Previous Plans to Harm Another: None (01/07/24 1114) Impressions and Recommendations: Predictive Model Details 11% Factor Value Calculated 01/07/2024 10:12 23% Number of active inpatient medication orders 21 Risk of Unplanned Readmission Model 15% ECG/EKG order present in last 6 months 12% Encounter of ten days or longer in last year present 11% Imaging order present in last 6 months 10% Age 78 10% Latest hemoglobin low (11.1 g/dL) 8% Number of hospitalizations in last year 1 7% Active anticoagulant inpatient medication order present 3% Future appointment scheduled 2% Charlson Comorbidity Index 1 1% Current length of stay 0.829 days Impressions and Recommendations: Patient is a 78 y.o female admitted for positive intraoperative culture. Social Work assessment completed due to trigger for 30 day readmission Social Work met with patient at bedside. Patient amenable to assessment and presented as A&Ox3 with appropriate affect. Patient had appropriate eye contact and was good historian. Social Work informed patient of chart review and asked patient to confirm information. Social Work discussed SDOH (finances, food, transportation, housing, and social supports). Patient lives in private residence with spouse (Sunita Miranda). Patient receives jail benefits. Patient drives own vehicle to medical appointments. Patient reports good support from Sunita, friends Hope and Meryl. Patient reports Sunita is available to provide transportation. Patient is member for [employer] and enjoys creating art. Patient denies concerns for SDOH (finances, food, transportation, housing, and social supports). Substance Abuse, Mental Health, and Trauma History: Chemical Dependency, Mental Health & Trauma History Chemical Dependency: No concerns reported or noted. Mental Health: Patient denies current and past abuse, mental health diagnosis, and HI/SI. Chart review notes history of Depression. PHQ-2 Total Score: 0 Advance Directive: Yes On file: Yes Power of Edger Feeder Name: Sunita Miranda Relationship: Spouse Patient stated they have no additional concerns or needs for Social Work to address. Social Work encouraged patient to inform nurse if patient has any new needs identified. Case Management to follow for discharge planning needs. Joya Duckworth LMSW Selling Specialist Please see Psychiatric Treatment Team for contact information. * Initial Assessments - Karina Desai RN - 01/07/2024 7:46 AM CDT DIAMOND Initial Assessment Interview Note Information Obtained From: Patient Admission Source: from home Impression: Patient is a 78 y.o female admitted for positive intraoperative culture Plan Includes: Patient will need IV antibiotics at discharge. Referral sent to [facility] per protocol. Primary Source of Transportation: Spouse Sunita [phone] Health Insurance Coverage: [facility] Medicare Prescription Coverage: yes Pharmacy: [id number] [place], [place] - [address] [facility] [address] [facility] [id number] Primary Care Provider: Enmanuel Gan MD--this has been verified Prior to Admission: Functional Status: Independent with ADLs Primary Caregiver: Self Support System: Spouse/Significant Other Home Care Services: No Outpatient Services: No Durable Medical Equipment: Walker (wheeled), Cane (single prong), Home Modification Assessment (railes in bathroom), Shower chair Living Arrangements: Spouse/significant other Type of Residence: Private residence Potential discharge needs include: Home Health: IV therapy Patient expects to be Discharged to: Private residence Patient's Identified Problem/Goal Problem: Ensure acute medical needs are met and that patient has a safe discharge plan. Goal: Secure a discharge plan that patient/family are agreeable with and ensure patient has continuum of care. Case management will follow for discharge planning and send referrals as needed. Goals include: To assure continuity of care, To maximize coping skills, To assure patient is in a safe environment and To assure access to community resources. Plan includes: 1. Collaboration with Patient, Provider, Direct Care Nurse, Selling Specialist, and other members of theHealth Care Team to assure needed interventions completed. 2. Return patient to optimal level of self-care post discharge. 3. Grader Tender will follow for Discharge Planning - interventions as needed 4. Anticipated level of care at discharge 5. Planned Discharge Disposition Karina Desia RN * Plan of Care - Hannah Garcia - 01/06/2024 6:45 PM CDT Problem: Discharge Planning Goal: Understanding discharge needs will improve Outcome: Progressing Problem: Fall Risk Goal: Ability to state ways to decrease the risk of falls will improve Outcome: Progressing Goal: Will remain free from falls Outcome: Progressing Goal: Will remain free from injury from falls Outcome: Progressing Problem: Lack of Knowledge Goal: Ability to develop a pain control plan will improve Outcome: Progressing Problem: Medication Goal: Satisfaction with pain management medication regimen will improve Outcome: Progressing Problem: Sensory Goal: Ability to identify factors that increase pain levels will improve while working to decrease the patient's pain levels Outcome: Progressing Problem: Coping Goal: Ability to cope will improve Outcome: Progressing Problem: Health Behavior Goal: Identification of resources available to assist in meeting health care needs will improve Outcome: Progressing Goals: Have PICC inserted. Start antibiotics. Pain control Summary: Pain controlled. Waiting for PICC to be inserted. * Summary of Treatment Recommendations Non-Billable - Susan Foley MD - 01/06/2024 4:36 PM CDT Images from the original note were not included. Infectious Diseases Sign Off Recommendations for Patients on [facility] IV Antibiotics Diagnosis: L1 discitis/osteomyelitis Retained Infected Hardware (Yes/No/Unclear): Yes Location: Fusion [id number], no hardware at nonunion site Site of Infection(s): L1 Organism(s): MSSE Antibiotics Start Date: 01/05 Infectious Disease Team: Orthopedic Infectious Diseases Infectious Disease Attending: Annie Medication Recommendations: Drug(s): Ceftriaxone 2 grams IV every 24 hours Duration 6 weeks, can consider early PO switch in clinic after at least 2 weeks of IV Firm Stop (Yes/No): No Anticipated Stop Date (note, the following date does not imply an order to stop on that date): 02/16 Labs/Frequency to be Monitored: CBC once a week , CMP once a week , ESR/CRP 3 weeks after starting antibiotics , and ESR/CRP 6 weeks after starting antibiotics Imaging Recommended Before Follow Up (include clinical question to be answered by imaging): None Summary of Consultation: The patient is a 78 y.o. 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 Recently admitted for revision with extension up to T10 and extendingdown to pelvis PSIF T12/L1 and L1 removal of hardware/screws bilaterally on 12/01. Per op note after removing L1 pedicle screws bilaterally, the holes were debrided and packed with bone graft, vancomycin placed directly in the pedicles, no obvious infection seen but cultures obtained. OR culture grewMSSE. Postop course complicated with Vtach and transferred to ICU started on amiodarone. She was discharged home on 12/13. Seen in ortho clinic 01/04 and was doing well, surgical incisions appeared to be healing. Cultures reviewed and given possible infected nonunion she was readmitted to start IV antibiotics. ESR 26 CRP 43. She was started on IV ceftriaxone with plan for 6 weeks, since no hardwareretained at nonunion site no clear indication for suppression. Other Recommendations: Patient has international trip planned for 02/23 Follow Up Plan: fax results to [phone], follow up with Dr. Valencia in 2-3 weeks, and After discharge additional questions can be directed to the clinic at [phone] Important Information for Healthcare Providers: Antibiotic Plan: Antibiotics: ceftriaxone Anticipated stop date for IV antibiotics: 02/16 Infectious disease physician that saw the patient during hospital admission: Annie Recommended Laboratory Monitoring: CBC weekly Basic metabolic panel weekly Liver function test weekly ALL RESULTS SHOULD BE FAXED TO INFECTIOUS DISEASE CLINIC AT: [phone] PLEASE CALL THE INFECTIOUS DISEASES CLINIC WITH ANY QUESTIONS AT: [phone] Leaving the Hospital on IV Antibiotics Information for Patients and Families Infectious Diseases Because of your infection, you must be treated with antibiotics by vein (IV). Timing is important! You should receive antibiotics on a regular schedule and not skip doses. This will give your body enough antibiotic to fight your infection. Finishing is important! You must finish all antibiotics unless told otherwise by your doctor. Taking all of your antibiotics will help get rid of your infection and prevent resistance to antibiotics. What to expect Labs: A nurse will draw your blood about 1-2 times each week. Labs help us monitor your infection and watch out for antibiotic side effects. Telephone calls: You will be receiving lots of phone calls! People who will need to contact you include the infectious disease clinic, home health nurses, home infusion team (antibiotic providers), pharmacists, and doctors. Please make sure we have a working phone number for you so you can receive these calls that are important for your health Please make sure your voicemail is set up AND has space for us to leave a message (just in case we miss you!) Catheter and Wound care Always wash hands with antibacterial soap and use alcohol-based hand speech lang path therapist before touching yourcatheter or changing wound dressings. When drying hands, only use a clean paper towel. Don't forget to scrub the ???hub?? (tip of your catheter)! Do this with an alcohol wipe before each use. Scrub for 30 seconds (minimum) and allow to dry without blowing on it or waving your hand across it. Refer to your home care service's instructions for taking care of your IV line and hooking up your antibiotics. Follow-up Appointment Keeping your follow-up appointment is very important! Below are things that may happen or be decided at your infectious diseases clinic appointment. Look at the infection site and IV to look for problems Determine how long you need to be on IV antibiotics Prescribe oral (pill) antibiotics after finishing IV antibiotics if needed Depending on how you are doing, we may order additional blood work or imaging tests to evaluate your infection Arrange for your IV line to be removed when the IV antibiotics are completed Questions or Concerns?? Below are reasons to call the Infectious Diseases Clinic RIGHT AWAY! 1. Watery diarrhea more than 3 times in 24 hours. 2. Nausea, vomiting, and/or belly pain 3. Rash and/or itching 4. Chills 5. Drenching night sweats 6. Fever >100.3 7. Increasing redness and/or drainage from a wound 8. Confusion or personality changes 9. Antibiotic catheter problems. Based on your symptoms, we may be able to help you over the phone or have your home health nurse help you. In some cases, you may need to go to the Emergency Room. Contact Infectious Diseases Clinic: Toll-free: [phone] Hospital ID Doctor: Annie [facility] Infectious Diseases Offices [facility] [address] [place] [address], [address] [place] [address] Patient parking available north of [facility] General Infectious Diseases and LVAD Offices [facility] General ID Clinic [address], [address] [place] [address] [facility] ID Clinic [address] [facility] [address], [address] [place] [address] * Assessment & Plan Note - Susan Foley MD - 01/06/2024 3:47 PM CDTAssociated Problem(s): Infection of lumbar spine (CMS/HCC) ([facility]) The patient is a 78 y.o. 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 Recently admitted for revision with extension up to T10 and extendingdown to pelvis PSIF T12/L1 and L1 removal of hardware/screws bilaterally on 12/01. Per op note after removing L1 pedicle screws bilaterally, the holes were debrided and packed with bone graft, vancomycin placed directly in the pedicles, no obvious infection seen but cultures obtained. OR culture grewMSSE. Postop course complicated with Vtach and transferred [...] off, will arrange follow up in clinic documented in this encounter Plan of Treatment Scheduled Referrals Name Type Priority Associated Diagnoses Order Schedule Ambulatory referral to Home Health Outpatient Referral Routine Infection of lumbar spine (CMS/HCC) ([facility]) Expected: 01/07/2024, Expires: 07/08/2024 documented as of this encounter Procedures Procedure Name Priority Date/Time Associated Diagnosis Comments XR CHEST 1 VIEW ED Urgent/IP Urgent 01/07/2024 2:22 AM CDT EGFR STAT 01/06/2024 6:14 PM CDT DIFFERENTIAL AUTO STAT 01/06/2024 6:1 4 PM CDT CBC WITH AUTO DIFFERENTIAL STAT 01/06/2024 6:14 PM CDT APTT STAT 01/06/2024 6:14 PM CDT ERYTHROCYTE SEDIMENTATION RATE STAT 01/06/2024 6:14 PM CDT PROTIME-INR STAT 01/06/2024 6:14 PM CDT CRP (ACUTE PHASE) STAT 01/06/2024 6:1 4 PM CDT COMPREHENSIVE METABOLIC PANEL STAT 01/06/2024 6:14 PM CDT documented in this encounter Results * XR Chest 1 View (01/07/2024 2:22 AM CDT) Anatomical Region Laterality Modality Body, Chest N/A Computed Radiogr aphy 01/07/2024 9:56 AM CDT Impressions 01/07/2024 10:10 AM CDT The current study is compared with the prior radiograph dated 12/04/2023. ??Right upper chart approach peripherally inserted central venous catheter tip overlies the superior vena cava. ??Pacer defibrillator device is in place with generator in the left chest wall and leads overlying the right atrium and right ventricle. Partially imaged postsurgical changes of posterior enhancement spinal fusion. Lung volumes are small. ??The heart size and mediastinal contour are normal. No pleural effusion, pneumothorax, pneumonia, or pulmonary edema are present. Dictated by: Sean Potts M.D. The radiology attending physician has personally reviewed this study, and had reviewed and/or edited this written report and agrees with it. Electronically signed by: Jhon Bond M.D. Narrative 01/07/2024 10:10 AM CDT EXAMINATION: 1 view chest radiograph Procedure Note Jhon Bond MD - 01/07/2024 EXAMINATION: 1 view chest radiograph IMPRESSION: The current study is compared with the prior radiograph dated 12/04/2023. Right upper chart approach peripherally inserted central venous catheter tip overlies the superior vena cava. Pacer defibrillator device is in place with generator in the left chest wall and leads overlying the right atrium and right ventricle. Partially imaged postsurgical changes of posterior enhancement spinal fusion. Lung volumes are small. The heart size and mediastinal contour are normal. No pleural effusion, pneumothorax, pneumonia, or pulmonary edema are present. Dictated by: Sean Potts M.D. The radiology attending physician has personally reviewed this study, and had reviewed and/or edited this written report and agrees with it. Electronically signed by: Jhon Bond M.D. us Jeremy Michelle MD IMG XR PROCEDURES Fi nal Result * eGFR (01/06/2024 6:14 PM CDT) eGFR 62 >=60 mL/min/1. 73 m2 Comment: Interpretive Data [...] interpretive data was last reviewed 2021. Blood 01/06/2024 6:14 PM CDT 01/06/2024 6:26 PM CDT Padmini Anahyanant Claudio CRIMINAL RESEARCHER LAB BLOOD ORDERABLES Geovanna huynh Result [facility] Department [place] [address] * Differential, auto (01/06/2024 6:14 PM CDT) Neutrophil abs 5.4 1.5 - 6.5 K/cumm Imm gran abs 0.1 0.0 - 0.1 K/cumm [facility] Lymphocyte abs 1.6 0.8 - 3.3 K[facility] Monocyte abs 0.8 0.2 - 0.8 K/cumm [facility] Eosinophil abs 0.3 0.0 - 0.5 K/cumm [facility] Basophil abs 0.1 0.0 - 0.1 K/cumm [facility] Neutrophil pct 66.1 % [facility] Comment: Interpretive Data Percent cell count reference ranges are not reported, since discordance with absolute values may lead to misinterpretation of CBC data. Current Interpretive Data was last revised on 2017. Imm gran pct 1.0 % [facility] Comment: Interpretive Data Percent cell count reference ranges are not reported, since discordance with absolute values may lead to misinterpretation of CBC data. Current Interpretive Data was last revised on 2017. Lymphocyte pct 19.3 % [facility] Comment: Interpretive Data Percent cell count reference ranges are not reported, since discordance with absolute values may lead to misinterpretation of CBC data. Current Interpretive Data was last revised on 2017. Monocyte pct 9.6 % [facility] Comment: Interpretive Data Percent cell count reference ranges are not reported, since discordance with absolute values may lead to misinterpretation of CBC data. Current Interpretive Data was last revised on 2017. Eosinophil pct 3.1 % [facility] Comment: Interpretive Data Percent cell count reference ranges are not reported, since discordance with absolute values may lead to misinterpretation of CBC data. Current Interpretive Data was last revised on 2017. Basophil pct 0.9 % [facility] Comment: Interpretive Data Percent cell count reference ranges are not reported, since discordance with absolute values may lead to misinterpretation of CBC data. Current Interpretive Data was last revised on 2017. Blood 01/06/2024 6:14 PM CDT 01/06/2024 6:26 PM CDT Padmini Claudio LAB BLOOD ORDERABLES Geovanna l Result Performing Organization Address [facility] [place] [facility] de Phone Number [facility] [place] [address] * aPTT (01/06/2024 6:14 PM CDT) Pathologist [facility] aPTT 34 28 - 38 sec Comment: Interpretive Data Heparin therapeutic range: 66.0 - 100.0 seconds. Range based on correlation with therapeutic heparin activity range of 0.3 - 0.7 Units/mL. Current interpretive data was last revised on 2023. Blood 01/06/2024 6:14 PM CDT 01/06/2024 6:29 PM CDT Padmini Claudio LAB BLOOD ORDERABLES Geovanna l Result Performing Organization Address [facility] [place] [facility] de Phone Number [facility] [place] [address] * (ABNORMAL) Protime-INR (01/06/2024 6:14 PM CDT) PT 14.2(H) 10.3 - 13.7 sec INR 1.25(H) 0.90 - 1.20 [facility] Comment: Interpretive data Oral anticoagulant therapeutic ranges: Venous thromboembolism prophylaxis or treatment: 2.0-3.0 CARDIOLOGY Standard range: 2.0-3.0 High-intensity range: 2.5-3.5 Refer to indication-specific guidelines for appropriate target ranges for prosthetic heart valve replacement. Current interpretive data was last revised on 2019. Blood 01/06/2024 6:14 PM CDT 01/06/2024 6:29 PM CDT us Padmini Claudio CRIMINAL RESEARCHER LAB BLOOD ORDERABLES Geovanna huynh Result [facility] Department [place] [address] * Comprehensive metabolic panel (01/06/2024 6:14 PM CDT) Sodium 140 135 - 145 mmol/L Potassium, pl 4.3 3.3 - 4.9 mmol/L [facility] Chloride 103 97 - 110 mmol/L [facility] CO2 26 22 - 32 mmol/L [facility] Anion gap 11 2 - 15 mmol/L [facility] BUN 14 6 - 25 mg/dL [facility] Creatinine 0.94 0.60 - 1.10 mg/dL [facility] Glucose 111 70 - 199 mg/dL [facility] Comment: Interpretive Data Fasting glucose >/= 126 [...] interpretive data was last revised 2022. Calcium 9.0 8.5 - 10.3 mg/dL [facility] Bilirubin, total 0.2 0.1 - 1.2 mg/dL [facility] Protein, pl 6.8 6.5 - 8.5 g/dL [facility] Albumin 3.7 3.5 - 5.0 g/dL [facility] Alk phos 116 40 - 130 Units/L [facility] ALT 14 7 - 45 Units/L [facility] AST 25 10 - 45 Units/L [facility] Blood 01/06/2024 6:14 PM CDT 01/06/2024 6:26 PM CDT us Padmini Claudio CRIMINAL RESEARCHER LAB BLOOD ORDERABLES Geovanna l Result Performing Organization Address City/[facility] [place] [facility]/ZIP Co de Phone Number [facility] Department [place] [address] * (ABNORMAL) CBC with auto differential (01/06/2024 6:14 PM CDT) [facility] WBC 8.1 3.8 - 9.9 K/cumm Hgb 11.1(L) 11.9 - 15.5 g/dL [facility] Hct 34.9(L) 35.6 - 45.5 % [facility] Plt 325 150 - 400 K/cumm [facility] MPV 10.0 9.1 - 12.3 fL [facility] RBC 3.89(L) 3.90 - 5.20 M/cumm [facility] MCV 89.7 81.3 - 96.4 fL [facility] MCH 28.5 27.1 - 33.3 pg [facility] MCHC 31.8(L) 32.3 - 35.7 g/dL [facility] RDW CV 14.6 11.1 - 14.9 % [facility] RDW SD 47.8 35.7 - 48.1 fL [facility] NRBC abs 0.00 0.00 - 0.01 K/cumm [facility] Blood 01/06/2024 6:14 PM CDT 01/06/2024 6:26 PM CDT us Padmini Claudio CRIMINAL RESEARCHER LAB BLOOD ORDERABLES Geovanna l Result [facility] Department [place] [address] * Erythrocyte sedimentation rate (01/06/2024 6:14 PM CDT) Erythrocyte sedimentation rate 26 1 - 30 mm/hr Blood 01/06/2024 6:14 PM CDT 01/06/2024 6:26 PM CDT Padmini Claudio CRIMINAL RESEARCHER LAB BLOOD ORDERABLES Geovanna l Result Performing Organization Address [place] Hospital/[facility] Co de Phone Number [facility] [place] [address] * (ABNORMAL) CRP (acute phase) (01/06/2024 6:14 PM CDT) Pathologist [facility] CRP 43.2(H) <=10.0 mg/L Blood 01/06/2024 6:14 PM CDT 01/06/2024 6:26 PM CDT Padmini Claudio CRIMINAL RESEARCHER LAB BLOOD ORDERABLES Geovanna l Result Performing Organization Address [facility] de Phone Number [facility] [place] [address] documented in this encounter Visit Diagnoses Diagnosis Infection of lumbar spine (CMS/HCC) (HCC)- Primary Infection of lumbar spine (CMS/HCC) (HCC) documented in this encounter Admitting Diagnoses Diagnosis Infection of lumbar spine (CMS/HCC) (HCC) documented in this encounter Administered Medications Inactive Administered Medications - up to 3 most recent administrations Medication Order MAR Action Action Date Dose Rate Site acetaminophen (TYLENOL) tablet 1,000 mg 1,000 mg, oral, Every 6 hours PRN, fever, headaches, other, pain, Starting on Kat 01/07/24 at 0952 Given 01/08/2024 1:55 AM CDT 1,000 mg Given 01/07/2024 8:19 PM CDT 1,000 mg Given 01/07/2024 10:23 AM CDT 1,000 mg amiodarone (PACERONE) tablet 200 mg 200 mg, oral, Daily, First dose on Thu01/06/24 at 1800 Given 01/08/2024 8:25 AM CDT 200 mg Given 01/07/2024 8:31 AM CDT 200 mg apixaban (ELIQUIS) tablet 5 mg 5 mg, oral, Every 12 hours scheduled, First dose on Thu01/06/24 at 2100, Nurse to discontinue heparin infusion order and associated bolus at first administration of apixaban using ? order condition met? order source, Indications: atrial fibrillationIndications:atrial fibrillation Given 01/07/2024 8:31 AM CDT 5 mg Given 01/06/2024 8:36 PM CDT 5 mg apixaban (ELIQUIS) tablet 5 mg 5 mg, oral, Every 12 hours scheduled, First dose (after last modification) on Kat 01/14/24 at 0900, Nurse to discontinue heparin infusion order and associated bolus at first administration of apixaban using ? order condition met? order source, Indications: atrial fibrillationIndications:atrial fibrillation atorvastatin (LIPITOR) tablet 20 mg 20 mg, oral, Nightly, First dose on Thu01/06/24 at 2100, Indications: hyperlipidemiaIndications:hyperlipidemia Given 01/07/2024 8:19 PM CDT 20 mg Given 01/06/2024 8:36 PM CDT 20 mg cefTRIAXone (ROCEPHIN) 2,000 mg/20 mL in sterile water (premix) 2,000 mg 2,000 mg, intravenous, at 240 mL/hr, Administer over 5 Minutes, Every 24 hours scheduled, First dose on Thu01/06/24 at 1900, Please draw baseline labs before starting antibiotics, Indications: Bone/Joint InfectionIndications:Bone/Joint Infection Given 01/08/2024 10:44 AM CDT 2,000 mg 240 mL/hr Given 01/07/2024 10:17 AM CDT 2,000 mg 240 mL/hr DULoxetine DR (CYMBALTA) extended release capsule 60 mg 60 mg, oral, Every morning, First dose on Kta 01/07/24 at 0900, Capsule may be opened and contents mixed with applesauce or apple juice ONLY. Do not crush or chew capsule, Indications: Anxiety with DepressionIndications:Anxiety with Depression Given 01/08/2024 8:2 5 AM CDT 60 mg Given 01/07/2024 8:30 AM CDT 60 mg enoxaparin (LOVENOX) syringe 40 mg 40 mg, subcutaneous, Daily (for enoxaparin), First dose (after last modification) on Thu01/08/24 at 0900, For 6 doses, Indications: Deep Vein Thrombosis PreventionIndications:Deep Vein Thrombosis Prevention Given 01/08/2024 8:25 AM CDT 40 mg Left Upper Abdomen furosemide (LASIX) tablet 40 mg 40 mg, oral, 2 times daily, First dose on Thu01/06/24 at 2100 Given 01/08/2024 8:25 AM CDT 40 mg Given 01/07/2024 8:19 PM CDT 40 mg Given 01/07/2024 8:31 AM CDT 40 mg hydrOXYzine (ATARAX) tablet 25 mg 25 mg, oral, Once, On Thu01/07/24 at 1030, For 1 dose Given 01/07/2024 10:17 AM CDT 25 mg methocarbamoL (ROBAXIN) tablet 750 mg 750 mg, oral, Every 8 hours, First dose on Thu01/06/24 at 1800 Given 01/08/2024 8:25 AM CDT 750 mg Given 01/08/2024 1:55 AM CDT 750 mg Given 01/07/2024 5:30 PM CDT 750 mg metoprolol tartrate (LOPRESSOR) immediate release tablet 25 mg 25 mg, oral, 2 times daily, First dose on Thu01/06/24 at 2100, Indications: Atrial Arrhythmia, hypertensionIndications:Atrial Arrhythmia,hypertension Given 01/08/2024 8:25 AM CDT 25 mg Given 01/07/2024 8:19 PM CDT 25 mg Given 01/07/2024 8:30 AM CDT 25 mg oxyCODONE (ROXICODONE) tablet 10 mg 10 mg, oral, Every 4 hours PRN, 1st line for pain, Starting on Thu01/06/24 at 1810, Indications: PainIndications:Pain Given 01/08/2024 8:25 AM CDT 10 mg Given 01/08/2024 1:55 AM CDT 10 mg Given 01/07/2024 8:19 PM CDT 10 mg sodium chloride 0.9% flush 5-10 mL 5-10 mL, intra-catheter, Every 12 hours scheduled, First dose on Thu01/06/24 at 2100, Flush volume based on line type, size, and protocol. Given 01/08/2024 11:35 AM CDT 5 mL Given 01/07/2024 10:17 AM CDT 10 mL sodium chloride 0.9% flush 5-20 mL 5-20 mL, intra-catheter, As needed, line care, with each use, Starting on Thu01/06/24 at 1435, Flush volume based on line type, size, and protocol. documented in this encounter Discontinued Medications Medication Sig Discontinue Reason Start Date End Da te azelastine (ASTELIN) 137 mcg (0.1 %) nasal sprayIndications:Seaso nal Allergic Rhinitis Administer 1 spray into each nostril 2 (two) times a day as needed for rhinitis or allergies 12/30/2021 01/06/2024 alendronate (FOSAMAX) 70 mg tabletIndications:Post -Menopausal Osteoporosis Take 1 tablet (70 mg total) by mouth every 7 days Thursday08/18/2023 01/06/2024 fexofenadine-pseudoeph edrine (KIMBERLY-D) 60-120 mg per 12 hr tabletIndications:Jeramie rgic Rhinitis Take 1 tablet by mouth 2 (two) times a day as needed for allergies 01/06/2024 fluticasone (FLONASE) 50 mcg/actuation nasal spray inhale 1 spray (50MCG) by intranasal route every day in each nostril 06/15/2012 01/06/2024 lidocaine (ASPERCREME) 4 % adhesive patch,medicated Place 2 patches on the skin daily Do not place on or around surgical incision. 12/15/2023 01/06/2024 CHOLECALCIFEROL, VITAMIN D3, ORALIndications:supple ment Take 1 tablet by mouth every morning 01/06/2024 acetaminophen 500 mg capsuleIndications:Jeannette n,Pain Take 2 capsules (1,000 mg total) by mouth every 6 (six) hours 12/14/2023 01/06/2024 multivitamin with folic acid 400 mcg tablet Take 1 tablet by mouth daily 12/15/2023 01/06/2024 senna-docusate (PERICOLACE) 8.6-50 mgIndications:constipa tion Take 2 tablets by mouth 2 (two) times a day as needed for constipation Do not take if you experience diarrhea 12/14/2023 01/06/2024 ALPRAZolam (XANAX) 0.25 mg tablet Take 1 tablet (0.25 mg total) by mouth nightly as needed for anxiety 01/05/2024 01/06/2024 oxyCODONE (ROXICODONE) 10 mg tabletIndications:Pain Take 1 tablet (10 mg total) by mouth every 6 (six) hours as needed for pain 01/06/2024 01/06/2024 Eliquis 5 mg tabletIndications:atri al fibrillation DO NOT TAKE THIS MEDICATION UNTIL JANUARY 03, 2024. ON JANUARY 03, 2024 YOU MAY RESUME TAKING 5MG BY MOUTH TWICE A DAY. 12/14/2023 01/08/2024 documented as of this encounter Historical Medications * This list may reflect changes made after this encounter. oxyCODONE (ROXICODONE) 10 mg tabletIndications :Pain Take 1 tablet (10 mg total) by mouth every 6 (six) hours as needed for pain 01/06/2024 01/06/2024 added in this encounter Active and Recently Administered Medications Times are shown in CDT. Scheduled Medication Order 01/06/2024 01/07/2024 01/08/2024 amiodarone (PACERONE) tablet 200 mg 200 mg, oral, Daily, First dose on Thu01/06/24 at 1800 1818 (Not Given - Provider: Hannah Garcia - Reason: Other - Comment: patient said she took before admission) 0831 (Given - Provider: Carol Suarez RN) 0825 (Given - Provider: Carol Suarez RN) apixaban (ELIQUIS) tablet 5 mg (CANCELED) 5 mg, oral, Every 12 hours scheduled, First dose on Thu01/06/24 at 2100, Nurse to discontinue heparin infusion order and associated bolus at first administration of apixaban using ? order condition met? order source, Indications: atrial fibrillation 2035 (Given - Provider: Alexus Thomson) 0831 (Given - Provider: Carol Suarez, MEDINA) apixaban (ELIQUIS) tablet 5 mg 5 mg, oral, Every 12 hours scheduled, First dose (after last modification) on Kat 01/14/24 at 0900, Nurse to discontinue heparin infusion order and associated bolus at first administration of apixaban using ? order condition met? order source, Indications: atrial fibrillation atorvastatin (LIPITOR) tablet 20 mg 20 mg, oral, Nightly, First dose on Thu01/06/24 at 2100, Indications: hyperlipidemia 2035 (Given - Provider: Alexus Thomson) 2018 (Given - Provider: Alexus Thomson) cefTRIAXone (ROCEPHIN) 2,000 mg/20 mL in sterile water (premix) 2,000 mg 2,000 mg, intravenous, at 240 mL/hr, Administer over 5 Minutes, Every 24 hours scheduled, First dose on Thu01/06/24 at 1900, Please draw baseline labs before starting antibiotics, Indications: Bone/Joint Infection 0546 (Not Given - Provider: Alexus Thomson - Reason: Other - Comment: awaiting picc access)1017 (Given - Provider: Carol Suarez RN) 1044 (Given - Provider: Carol Suarez, RN) DULoxetine DR (CYMBALTA) extended release capsule 60 mg 60 mg, oral, Every morning, First dose on Thu01/07/24 at 0900, Capsule may be opened and contents mixed with applesauce or apple juice ONLY. Do not crush or chew capsule, Indications: Anxiety with Depression 0830 (Given - Provider: Carol Suarez, MEDINA) 0825 (Given - Provider: Carol Suarez, RN) enoxaparin (LOVENOX) syringe 40 mg 40 mg, subcutaneous, Daily (for enoxaparin), First dose (after last modification) on Thu01/08/24 at 0900, For 6 doses, Indications: Deep Vein Thrombosis Prevention 0825 (Given - Provider: Carol Suarez, MEDINA) furosemide (LASIX) tablet 40 mg 40 mg, oral, 2 times daily, First dose on Thu01/06/24 at 2100 2035 (Given - Provider: Alexus Thomson) 0831 (Given - Provider: Carol Suarez, RN)2018 (Given - Provider: Alexus Thomson) 0825 (Given - Provider: Carol Suarez, MEDINA) hydrOXYzine (ATARAX) tablet 25 mg (COMPLETED) 25 mg, oral, Once, On Kat 01/07/24 at 1030, For 1 dose 1017 (Given - Provider: Carol Suarez, MEDINA) methocarbamoL (ROBAXIN) tablet 750 mg 750 mg, oral, Every 8 hours, First dose on Thu01/06/24 at 1800 1815 (Given - Provider: Hannah Garcia) 0317 (Given - Provider: Alexus Thomson)0836 (Given - Provider: Carol Suarez RN)1730 (Given - Provider: Carol Suarez RN) 0155 (Given - Provider: Alexus Thomson)0825 (Given - Provider: Carol Suarez RN) metoprolol tartrate (LOPRESSOR) immediate release tablet 25 mg 25 mg, oral, 2 times daily, First dose on Thu01/06/24 at 2100, Indications: Atrial Arrhythmia, hypertension 2035 (Given - Provider: Alexus Thomson) 0830 (Given - Provider: Carol Suarez RN)2018 (Given - Provider: Alexus Thomson) 0825 (Given - Provider: Carol Suarez RN) sodium chloride 0.9% flush 5-10 mL 5-10 mL, intra-catheter, Every 12 hours scheduled, First dose on Thu01/06/24 at 2100, Flush volume based on line type, size, and protocol. 2041 (Canceled Entry - Provider: Alexus Thomson) 1017 (Given - Provider: Carol Suarez RN)194 (Canceled Entry - Provider: Alexus Thomson) 1135 (Given - Provider: Carol Suarez RN - Comment: given with IV Rocephin) PRN Medication Order 01/06/2024 01/07/2024 01/08/2024 acetaminophen (TYLENOL) tablet 1,000 mg 1,000 mg, oral, Every 6 hours PRN, fever, headaches, other, pain, Starting on Kat 01/07/24 at 0952 1023 (Given - Provider: Carol Suarze RN)2018 (Given - Provider: Alexus Thomson) 0155 (Given - Provider: Alexus Thomson) oxyCODONE (ROXICODONE) tablet 10 mg 10 mg, oral, Every 4 hours PRN, 1st line for pain, Starting on Thu01/06/24 at 1810, Indications: Pain 1814 (Given - Provider: Hannah Garcia)2342 (Given - Provider: Alexus Thomson) 0505 (Given - Provider: Alexus Thomson)1023 (Given - Provider: Carol Suarez, MEDINA)1557 (Given - Provider: Carol Suarez, MEDINA)2019 (Given - Provider: Alexus Thomson) 0155 (Given - Provider: Alexus Thomson)0825 (Given - Provider: Carol Suarez RN) sodium chloride 0.9% flush 5-20 mL 5-20 mL, intra-catheter, As needed, line care, with each use, Starting on Thu01/06/24 at 1435, Flush volume based on line type, size, and protocol. documented in this encounter Orders Medications Ordered That Tyrone ht Not Have Been Administered Count Last Ordered Date First Ordered Date apixaban (ELIQUIS) tablet 5 mg 1 01/07/2024 enoxaparin (LOVENOX) syringe 40 mg 1 2023 lidocaine (PF) (XYLOCAINE) 1 0 mg/mL (1 %) preservative free injection 10-20 mg 1 01/06/2024 oxyCODONE (ROXICODONE) tablet 5 mg 1 2023 sodium chloride 0.9% flush 5-20 mL 1 2023 Diet Count Last Ordered Date First Orde red Date ADULT DISCHARGE DIET 1 01/08/2024 Nursing Count Last Ordered Date First Orde red Date DISCHARGE ACTIVITY 4 01/08/2024 DISCHARGE CALL PROVIDER 2 01/08/2024 DISCHARGE DRESSING 1 01/08/2024 DISCHARGE INSTRUCTIONS 4 01/08/2024 Consult Count Last Ordered Date First Orde red Date CONSULT TO BONE AND JOINT IN FECTIOUS DISEASE 1 01/06/2024 IP CONSULT TO VASCULAR ACCESS TEAM 1 2023 Admission Count Last Ordered Date First Orde red Date ADMIT TO INPATIENT 1 01/06/2024 Discharge Count Last Ordered Date First Orde red Date DISCHARGE PATIENT 1 01/08/2024 documented in this encounter Additional Health Concerns Infection Onset Date Last Indicated Resolved Time MDR gram neg/ESBL Comment:01/06/2024 IP Review: patient with negative CRE and C.auris swab on 12/05, not hospitalized outside the [place] since then, OK to come off contact precautions. Gabriela Lu RN Patients who received care at a healthcare facility outside of the [place] will be placed in Contact Precautions until infection or colonization with specific highly resistant bacteria can be ruled out. Infection Prevention will arrange screening. Please contact Infection Prevention. 01/06/2024 01/06/2024 01/06/2024 5:32 PM C DT documented as of this encounter Care Teams Cellular Plastics Cutter Relationship Specialty Start Date End Date Enmanuel Gan MD [address] [place] [address] PCP - General Internal Medicine 04/26/20 Tg Houston MD [address] [place] [address] Consulting Physician Cardiology 07/18/20 Guerrero Hunter, DPT [address] [facility] [address] [place] [address] Physical Therapist Physical Therapy 11/08/20 Guerrero Weiner, HAND WEAVER [address] [facility] [address] [place] [address] Horse Riding Coach Or Instructor Physical Therapy 12/12/20 Stephen Barth MD [address] [place] [address] Referring Physician Transplant 10/19/23 Karlie Hernandez, RN [address] [facility] [address] [place] [address] SHOP Outpatient Grader Tender 12/15/23 01/12/24 documented as of this encounter
--- OUTSIDE RECORDS SUMMARY | 2024-07-12 08:40 | XMS_ITS | Encounter Summary ---
Author Organization [facility] Healthcare Address [address] [place] [address] Care Team Providers Care Senior Business Development Analyst Name Role Phone Enmanuel aGn MD Primary Care Provider [phone] Tg Houston MD Unavailable [phone] Guerrero Hunter DPT Unavailable [phone] Guerrero Weiner NEWSPAPER DELIVERY COUNSELOR Unavailable +[phone] Stephen Barth MD Unavailable [phone] Karlie Hernandez RN Unavailable [phone] Encounter Details Date Type Department Care Team (Late st Contact Info) Description 01/09/2024 Plan of Care Documentation [facility] [address] [address] [address] [place] [address] Social History Tobacco Use Types Packs/Day Years [...] from doctor or pharmacy Never 01/09/2024 [facility] Utilities Answer Date Recorded In [...] any time in the past 12 m [facility], were you homeless [...] on file Legal Sex Female 9:09 PM BUYER INTERN Gender Identity Not on file Sexual Orientation Lesbian 05/24/2019 9: 06 AM CDT documented as of this encounter Miscellaneous Notes * Home Health Plan of Care Certification Statement - Dalia Menjivar OT - 01/19/2024 2:57 PM CDT I certify that the above stated patient is homebound and has a need for intermittent usp, physical therapy and/or speech or occupational therapy services for their current diagnosis(es) as outlined in the initial plan of care. The patient is under my care, and I have authorized serviceson this plan of care and will periodically review the plan. The patient had a [id number] encounter with Gabriel Harmon NP on 01/08/2024 and the encounter was related to the primary reason for home health care. documented in this encounter Plan of Treatment Not on file documented as of this encounter Visit Diagnoses Not on filedocumented in this encounter Care Teams Senior Business Development Analyst Relationship Specialty Start Date End Date Enmanuel Gan MD [address] [facility] [address] [place] [address] [place] [address] PCP - General Internal Medicine 04/26/20 Tg Houston MD [address] [place] [address] Consulting Physician Cardiology 07/18/20 Guerrero Hunter DPT [address] [facility] [address] [place] [address] Physical Therapist Physical Therapy 11/08/20 Guerrero Weiner, [facility] [address] [facility] [address] [place], [place] [id number] It Support Technician Physical Therapy 12/12/20 Stephen Barth MD [address] [place], [place] [id number] Referring Physician Transplant 10/19/23 Karlie Hernandez, RN [address] [facility] [address] [place] [address] SHOP Outpatient Attending Pathologist 12/15/23 01/12/24 documented as of this encounter
--- OUTSIDE RECORDS SUMMARY | 2024-07-12 08:41 | XMS_ITS | Encounter Summary ---
Author Organization [facility] Healthcare Address [address] [place] [address] Care Team Providers Care Patient Care Director Name Role Phone Enmanuel Gan MD Primary Care Provider [phone] Tg Houston MD Unavailable [phone] Guerrero Hunter DPT Unavailable +[phone] Guerrero Weiner BENEFITS DIRECTOR Unavailable +[phone] Stephen Barth MD Unavailable [phone] Karlie Hernandez RN Unavailable [phone] Encounter Details Date Type Department Care Team (Late st Contact Info) Description 12/17/2023 Telephone [facility] Home Care Services [address] [place] [address] Tr Russ RN Social History Tobacco Use Types Packs/Day Years Used Date Smoking Tobacco: Never Smokeless Tobacco: Never Alcohol Use Standard Drinks/Week Comments Yes 5 (1 standard drink = 0.6 oz pur e alcohol) [facility] Utilities Answer Date Recorded In the past 12 months has [employer], gas, oil, or water company threatened to [...] often do you attend chur ch or restorationist services? Never 12/15/2023 Do you belong to any clubs o r organizations such as pentecostal groups, unions, fraternal or athletic groups, or [...] any time in the past 12 m [facility], were you homeless or living in a penitentiary (including now)? No 12/15/2023 Personal Safety Answer Date Recorded Have you ever been in or are you currently in a harmful physical or emotional relationship or is someone making you feel afraid or unsafe? Denies 12/03/2023 Comments No Sex and Gender Information Value Date Recorded Sex Assigned at Not on file Legal Sex Female 9:09 PM INFORMATICS SCIENTIST Gender Identity Not on file Sexual Orientation Lesbian 05/24/2019 9: 06 AM CDT documented as of this encounter Miscellaneous Notes * Telephone Encounter - Tr Russ RN - 12/17/2023 3:40 PM CDT Per chart, patient was discharged on 12/14/23 without HH orders. DIAMOND Paredes notified, as this coordinator was unable to send secure chat message to discharging provider ABSORPTION OPERATOR Dalia Muhammad. No HH orders placed at the time of this note. Consult closed; no HH services/future appointments set up at this time. Tr Russ RN-BSN Network Developer [facility] [phone] documented in this encounter Plan of Treatment Not on file documented as of this encounter Visit Diagnoses Not on filedocumented in this encounter Care Teams Patient Care Director Relationship Specialty Start Date End Date Enmanuel Gan MD [address] [facility] [address] [place] [address] PCP - General Internal Medicine 04/26/20 Tg Houston MD [address] [place] [address] Consulting Physician Cardiology 07/18/20 Guerrero Hunter DPT [address] [facility] [address] [place] [address] Physical Therapist Physical Therapy 11/08/20 Guerrero Weiner, [facility] [address] [place] [address] [address] [place] [address] Search Optimization Analyst Physical Therapy 12/12/20 Stephen Barth MD [address] [facility] [address] [place] [address] Referring Physician Transplant 10/19/23 Karlie Hernandez RN [address] [facility] [address] [place] [address] SHOP Outpatient Lozenge Dough Mixer 12/15/23 01/12/24 documented as of this encounter
--- OUTSIDE RECORDS SUMMARY | 2024-07-12 08:41 | XMS_ITS | Encounter Summary ---
Author Organization [facility] Address [address] [place] [address] Phone Care Team Providers Care Attendant Coin Operated Laundry Name Role Phone Enmanuel Gan MD Primary Care Provider [phone] Tg Houston MD Unavailable [phone] Guerrero Hunter DPT Unavailable [phone] Guerrero Weiner DIETETIC TECH Unavailable [phone] Stephen Barth MD Unavailable [phone] Karlie Hernandez RN Unavailable [phone] Encounter Details Date Type Department Care Team (Latest Contact Info) Description 12/23/2023 2:00 PM CDT Clinical Support 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 Never 12/15/2023 Do you belong to [...] living in a fdc (including now)? No 12/15/2023 Personal Safety Answer Date Recorded Have you ever been in or are you currently in a harmful physical or emotional relationship or is someone making you feel afraid or unsafe? Denies 12/03/2023 Comments No Sex and Gender Information Value Date Recorded Sex Assigned at Not on file Legal Sex Female 9:09 PM SLASHER OPERATOR Gender Identity Not on file Sexual Orientation Lesbian 05/24/2019 9: 06 AM CDT documented as of this encounter Progress Notes * Cyndie Byers RN - 12/23/2023 2:00 PM CDT Images from the original note were not included. Interim History Macie Briseno returns to our office today accompanied by her spouse and wearing her custom TLSO brace. 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 She has done well since surgery andhas had improvement in her posture and pain. She reports she is better than she was prior to surgery. Patient was supposed to get a bone stimulator after surgery and as of today she still has not received. I placed the order on 12/14/23 and awaiting dispo. Called to ask about it with DME but will haveto wait for Raven in DME to get status, she is to return on 12/24/23. Also, placed HH order due to it not getting it upon d/c from hospital. Physical Examination SKIN: Incision demonstrates routine wound healing without evidence of drainage, erythema, dehiscence, or infection. There was some mild redness where her bra had rubbed. Place a non stick gauze to prevent rubbing and irritation. Treatment Plan At today's office visit, do's and don'ts regarding the patient's surgery were discussed. Dr. Michelle would like to see the patient back in his office for a full 6 week postoperative visit. At the time of the next office visit, Dr. Michelle would like to obtain AP and lateral radiographs of the entire spine. The patient will contact our office in the meantime with any questions or concerns. Cyndie WESTONN RN Nurse Coordinator to ENRICO FloresN RN Clinical Nurse Coordinator for Dr. Jeremy Michelle [facility] Orthopedic Spine Surgery documented in this encounter Plan of Treatment Not on file documented as of this encounter Visit Diagnoses Diagnosis Fusion of spine of thoracolumbar region- Primary documented in this encounter Care Teams Attendant Coin Operated Laundry Relationship Specialty Start Date End Date Enmanuel Gan MD [address] [place] [address] PCP - General Internal Medicine 04/26/20 Tg Houston MD [address] [place] [address] Consulting Physician Cardiology 07/18/20 Guerrero Hunter, REMINGTON [address] [facility] [address] [place] [address] Physical Therapist Physical Therapy 11/08/20 Guerrero Weiner DIETETIC TECH [address] [facility] [address] [place] [address] Field Administrator Physical Therapy 12/12/20 Stephen Barth MD [address] [place] [address] Referring Physician Transplant 10/19/23 Karlie Hernandez, RN [address] [facility] [address] [place] [address] SHOP Outpatient Restaurant Line Cook 12/15/23 01/12/24 documented as of this encounter
--- OUTSIDE RECORDS SUMMARY | 2024-07-12 08:41 | XMS_ITS | Encounter Summary ---
Author Organization [facility] Healthcare Address [address] [place] [address] Care Team Providers Care Gumming Machine Operator Name Role Phone Enmanuel Gan MD Primary Care Provider [phone] Tg Houston MD Unavailable [phone] Guerrero Hunter DPT Unavailable [phone] Guerrero Weiner COMMERCIAL SHEET METAL FOREMAN Unavailable +[phone] Stephen Barth MD Unavailable [phone] Karlie Hernandez RN Unavailable [phone] Reason for Visit * Reason Comments Unsuccessful Phone Call 1 Encounter Details Date Type Department Care Team (Late st Contact Info) Description 12/22/2023 SHOP/CHAP Subsequent Outreach [facility] OP CASE MANAGEMENT 1 [place] [id number] Karlie Hernandez, RN [address] [facility] [address] [place] [address] Social History Tobacco Use Types Packs/Day Years Used Date Smoking Tobacco: Never Smokeless Tobacco: Never Alcohol Use Standard Drinks/Week Comments Yes 5 (1 standard drink = 0.6 oz pur e alcohol) [facility] Utilities Answer Date Recorded In the past [...] often do you attend chur ch or jew services? Never 12/15/2023 Do you belong to any clubs o r organizations such as holiness groups, unions, fraternal or athletic groups, or [...] on file Legal Sex Female 9:09 PM ENGRAVING PATTERNMAKER Gender Identity Not on file Sexual Orientation Lesbian 05/24/2019 9: 06 AM CDT documented as of this encounter Plan of Treatment Not on file documented as of this encounter Visit Diagnoses Not on filedocumented in this encounter Care Teams Gumming Machine Operator Relationship Specialty Start Date End Date Enmanuel Gan MD [address] [facility] [address] INTERNAL MEDICINE [place], [place] [id number] PCP - General Internal Medicine 04/26/20 Tg Houston MD [address] [place] [address] Consulting Physician Cardiology 07/18/20 Guerrero Hunter DPT 4[address] [facility] [address] [place] [address] Physical Therapist Physical Therapy 11/08/20 Guerrero Weiner, COMMERCIAL SHEET METAL FOREMAN [address] [facility] [address] [place] [address] Supervisor Steffen House Physical Therapy 12/12/20 Stephen Barth MD [address] [place] [address] Referring Physician Transplant 10/19/23 Karlie Hernandez RN [address] [facility] [address] [place] [address] SHOP Outpatient Hydraulic Riveter 12/15/23 01/12/24 documented as of this encounter
--- OUTSIDE RECORDS SUMMARY | 2024-07-12 08:41 | XMS_ITS | Encounter Summary ---
Author Organization [facility] Healthcare Address [address] [place] [address] Care Team Providers Care Day Haul Youth Supervisor Name Role Phone Enmanuel Gan MD Primary Care Provider [phone] Tg Houston MD Unavailable [phone] Guerrero Hunter DPT Unavailable [phone] Guerrero Weiner DESKTOP SUPPORT ASSOCIATE Unavailable +[phone] Stephen Barth MD Unavailable [phone] Karlie Hernandez RN Unavailable [phone] Reason for Visit * Reason Comments Chart Review Encounter Details Date Type Department Care Team (Late st Contact Info) Description 12/15/2023 SHOP/CHAP Initial Eligibility Review [facility] OP CASE MANAGEMENT 1 [place] [id number] Karlie Hernandez, RN [address] [facility] [address] [place] [address] Social History Tobacco Use Types Packs/Day Years Used Date Smoking Tobacco: Never Smokeless Tobacco: Never Alcohol Use Standard Drinks/Week Comments Yes 5 (1 standard drink = 0.6 oz pur e alcohol) [facility] Utilities Answer Date Recorded [...] attend chur ch or muslim services? Never 12/15/2023 Do you belong to [...] any time in the past 12 m [facility], were you homeless or living in a jail (including now)? No 12/15/2023 Personal Safety Answer Date Recorded Have you ever been in or are you currently in a harmful physical or emotional relationship or is someone making you feel afraid or unsafe? Denies 12/03/2023 Comments No Sex and Gender Information Value Date Recorded Sex Assigned at Not on file Legal Sex Female 9:09 PM INFORMATION SYSTEMS SECURITY OFFICER Gender Identity Not on file Sexual Orientation Lesbian 05/24/2019 9: 06 AM CDT documented as of this encounter Plan of Treatment Not on file documented as of this encounter Visit Diagnoses Not on filedocumented in this encounter Care Teams Day Haul Youth Supervisor Relationship Specialty Start Date End Date Enmanuel Gan MD [address] [facility] [address] INTERNAL MED[address]INE [place], [place] [id number] PCP - General Internal Medicine 04/26/20 Tg Houston MD [address] [place] [address] Consulting Physician Cardiology 07/18/20 Guerrero Hunter DPT 4[address] [facility] [address] [place] [address] Physical Therapist Physical Therapy 11/08/20 Guerrero Weiner, DESKTOP SUPPORT ASSOCIATE 4[address] [facility] [address] [place] [address] Hot Metal Mixer Operator Helper Physical Therapy 12/12/20 Stephen Barth MD [address] [place] [address] Referring Physician Transplant 10/19/23 Karlie Hernandez RN [address] [facility] [address] [place] [address] SHOP Outpatient Promotions Executive Producer 12/15/23 01/12/24 documented as of this encounter
--- OUTSIDE RECORDS SUMMARY | 2024-07-12 08:41 | XMS_ITS | Encounter Summary ---
Author Organization [facility] Healthcare Address [address] [place] [address] Care Team Providers Care Cableway Operator Name Role Phone Enmanuel Gan MD Primary Care Provider [phone] Tg Houston MD Unavailable [phone] Guerrero Hunter DPT Unavailable [phone] Guerrero Weiner ENTRY LEVEL SALES ASSOCIATE Unavailable [phone] Stephen Barth MD Unavailable [phone] Karlie Hernandez RN Unavailable [phone] Encounter Details Date Type Department Care Team (Late st Contact Info) Description 12/23/2023 Telephone [facility] Home Care Services [address] [place] [address] Tr Russ RN Social History Tobacco Use Types Packs/Day Years Used Date Smoking Tobacco: Never Smokeless Tobacco: Never Alcohol Use Standard Drinks/Week Comments Yes 5 (1 standard drink = 0.6 oz pur e alcohol) [facility] Utilities Answer Date Recorded In the past 12 months has [employer], gas, oil, or water company threatened to [...] often do you attend chur ch or taoism services? Never 12/15/2023 Do you belong to [...] any time in the past 12 m [facility], were you homeless or living in a usp (including now)? No 12/15/2023 Personal Safety Answer Date Recorded Have you ever been in or are you currently in a harmful physical or emotional relationship or is someone making you feel afraid or unsafe? Denies 12/03/2023 Comments No Sex and Gender Information Value Date Recorded Sex Assigned at Not on file Legal Sex Female 9:09 PM MED AIDE Gender Identity Not on file Sexual Orientation Lesbian 05/24/2019 9: 06 AM CDT documented as of this encounter Miscellaneous Notes * Telephone Encounter - Tr Russ RN - 12/23/2023 1:03 PM CDT This coordinator received call from patient, requesting information on how to initiate home health services. This coordinator explained that a new home health referral can be submitted via her PCP orother provider currently managing her care. Pt stated she had a follow-up appointment with the surgical team today and would request a new homehealth referral. Sent patient the [facility] Home Care main/fax number via text message, as requested. Advised pt to call me back if she needed any further information/assistance. Tr Russ RN-BSN Public Health Dentist [facility] HomeCare [phone] documented in this encounter Plan of Treatment Not on file documented as of this encounter Visit Diagnoses Not on filedocumented in this encounter Care Teams Cableway Operator Relationship Specialty Start Date End Date Enmanuel Gan MD [address] [facility] [address] [place] [address] PCP - General Internal Medicine 04/26/20 Tg Houston MD [address] [facility] [address] [place] [address] Consulting Physician Cardiology 07/18/20 Guerrero Hunter DPT [address] [facility] [address] [place] [address] Physical Therapist Physical Therapy 11/08/20 Guerrero Weiner, ENTRY LEVEL SALES ASSOCIATE 4[address] [facility] [address] [place], [place] [id number] Sweeper Driver Physical Therapy 12/12/20 Stephen Barth MD [address] [facility] [address] [place], [place] [id number] Referring Physician Transplant 10/19/23 Karlie Hernandez, RN [address] [facility] [address] [place] [address] SHOP Outpatient Authorizer 12/15/23 01/12/24 documented as of this encounter
--- OUTSIDE RECORDS SUMMARY | 2024-07-12 08:41 | XMS_ITS | Encounter Summary ---
Author Organization [facility] Healthcare Address [address] [place] [address] Care Team Providers Care Resident Associate Name Role Phone Enmanuel Gan MD Primary Care Provider [phone] Tg Houston MD Unavailable [phone] Guerrero Hunter DPT Unavailable [phone] Guerrero Weiner DIVEMASTER Unavailable [phone] Stephen Barth MD Unavailable [phone] Karlie Hernandez RN Unavailable [phone] Encounter Details Date Type Department Care Team (Late st Contact Info) Description 12/23/2023 Telephone [facility] Home Care Services [address] [place] [address] Unknown, Notinfile Social History Tobacco Use Types Packs/Day Years Used Date Smoking Tobacco: Never Smokeless Tobacco: Never Alcohol Use Standard Drinks/Week Comments Yes 5 (1 standard drink = 0.6 oz pur e alcohol) [facility] Utilities Answer Date Recorded In the past 12 months has [employer], gas, oil, or water company threatened to [...] any clubs o r organizations such as latter day groups, unions, fraternal or athletic groups, or [...] in the past 12 m [facility], were you homeless or living in a half-way (including now)? No 12/15/2023 Personal Safety Answer Date Recorded Have you ever been in or are you currently in a harmful physical or emotional relationship or is someone making you feel afraid or unsafe? Denies 12/03/2023 Comments No Sex and Gender Information Value Date Recorded Sex Assigned at Not on file Legal Sex Female 9:09 PM MEMBERSHIP DIRECTOR Gender Identity Not on file Sexual Orientation Lesbian 05/24/2019 9: 06 AM CDT documented as of this encounter Miscellaneous Notes * Telephone Encounter - Catalina Bocanegra - 12/23/2023 4:12 PM CDT declined due to limited staffing and capacity. A Confidential voicemail left for case mgt . to inform of the decline. Call back number given for questions or concern documented in this encounter Plan of Treatment Not on file documented as of this encounter Visit Diagnoses Not on filedocumented in this encounter Care Teams Resident Associate Relationship Specialty Start Date End Date Enmanuel Gan MD [address] [facility] [address] [place] [address] PCP - General Internal Medicine 04/26/20 Tg Houston MD [address] [facility] [address] [place] [address] Consulting Physician Cardiology 07/18/20 Guerrero Hunter DPT 4[address] [facility] [address] [place] [address] Physical Therapist Physical Therapy 11/08/20 Guerrero Weiner, DIVEMASTER 4[address] [facility] [address] [place] [address] Crew Leader Gluing Physical Therapy 12/12/20 Stephen Barth MD [address] [facility] [address] [place] [address] Referring Physician Transplant 10/19/23 Karlie Hernandez, RN [address] [place] [id number] SHOP Outpatient Smoke Inspector 12/15/23 01/12/24 documented as of this encounter
--- OUTSIDE RECORDS SUMMARY | 2024-07-12 08:41 | XMS_ITS | Encounter Summary ---
Author Organization [facility] Healthcare Address [address] [place] [address] Care Team Providers Care Chef Instructor Name Role Phone Enmanuel Gan MD Primary Care Provider [phone] Tg Houston MD Unavailable [phone] Guerrero Hunter DPT Unavailable [phone] Guerrero Weiner INSTALLATION TECH Unavailable +[phone] Stephen Barth MD Unavailable [phone] Karlie Hernandez RN Unavailable [phone] Reason for Visit * Reason Comments Successfully Completed Encounter Details Date Type Department Care Team (Late st Contact Info) Description 12/23/2023 SHOP/CHAP Subsequent Outreach [facility] OP CASE MANAGEMENT 1 [place] [phone] Karlie Hernandez, RN [address] [facility] [address] [place] [address] Social History Tobacco Use Types Packs/Day Years Used Date Smoking Tobacco: Never Smokeless Tobacco: Never Alcohol Use Standard Drinks/Week Comments Yes 5 (1 standard drink = 0.6 oz pur e alcohol) [facility] Utilities Answer Date Recorded [...] attend chur ch or baptism services? Never 12/15/2023 Do you belong to [...] any time in the past 12 m [facility], were you homeless or living in a chcf (including now)? No 12/15/2023 Personal Safety Answer Date Recorded Have you ever been in or are you currently in a harmful physical or emotional relationship or is someone making you feel afraid or unsafe? Denies 12/03/2023 Comments No Sex and Gender Information Value Date Recorded Sex Assigned at Not on file Legal Sex Female 9:09 PM LINEN KEEPER Gender Identity Not on file Sexual Orientation Lesbian 05/24/2019 9: 06 AM CDT documented as of this encounter Progress Notes * Karlie Hernandez RN - 12/23/2023 10:22 AM CDT Weekly SHOP call. Patient reports feeling fairly well at this time. Patient overall feels she is progressing following recent surgery. Patient endorses moderate pain that she feels she is managing adequately with oxycodone and methocarbamol. Patient denies s/s of infection at surgical site and states incision appears to be healing well. Patient reports compliance with TLSO brace. Patient is awareof post op wound check today at 2 pm and confirms she has transportation. Patient asked about home health referral. Per chart review, referral for home health was placed with no order, and home health coordinators were unable to reach discharging UNDERTAKER ASSISTANT, therefore home health episode was closed. Patient is still interested in home health at this time. Secure chat sent to RN coordinator Cyndie Johnson discuss further. Patient has no further questions or concerns at this time. Reviewed OCM phone number and encouraged patient to call with any needs. documented in this encounter Plan of Treatment Not on file documented as of this encounter Visit Diagnoses Not on filedocumented in this encounter Care Teams Chef Instructor Relationship Specialty Start Date End Date Enmanuel Gan MD [address] [facility] [address] [place] [address] PCP - General Internal Medicine 04/26/20 Tg Houston MD [address] [place] [address] Consulting Physician Cardiology 07/18/20 Guerrero Hunter, DPT [address] [facility] [address] [place] [address] Physical Therapist Physical Therapy 11/08/20 Guerrero Weiner, INSTALLATION TECH [address] [facility] [address] [place] [address] Business Specialist Physical Therapy 12/12/20 Stephen Barth MD [address] [place] [address] Referring Physician Transplant 10/19/23 Karlie Hernandez, RN [address] [facility] [address] [place] [address] SHOP Outpatient Glass Checker 12/15/23 01/12/24 documented as of this encounter
--- OUTSIDE RECORDS SUMMARY | 2024-07-12 08:41 | XMS_ITS | Encounter Summary ---
Author Organization [facility] Healthcare Address [address] [place] [address] Care Team Providers Care Auto Slip Cover Installer Name Role Phone Enmanuel Gan MD Primary Care Provider [phone] Tg Houston MD Unavailable [phone] Guerrero Hunter DPT Unavailable [phone] Guerrero Weiner MRI SPECIALIST Unavailable [phone] Stephen Barth MD Unavailable [phone] Karlie Hernandez RN Unavailable [phone] Reason for Visit * Reason Comments Successfully Completed Encounter Details Date Type Department Care Team (Late st Contact Info) Description 12/15/2023 SHOP/CHAP Initial Outreach [facility] OP CASE MANAGEMENT [address] [place] [phone] Karlie Hernandez, RN [address] [facility] [address] [place] [address] Social History Tobacco Use Types Packs/Day Years [...] materials from doctor or pharmacy Never 01/09/2024 [facility] Utilities Answer Date Recorded In [...] attend chur ch or sikh services? Never 02/22/2024 Do you belong to [...] were you homeless or living in a nursing home (including now)? No 01/07/2024 Personal Safety Answer Date Recorded Have you ever been in or are you currently in a harmful physical or emotional relationship or is someone making you feel afraid or unsafe? Denies 01/06/2024 Comments No Sex and Gender Information Value Date Recorded Sex Assigned at Not on file Legal Sex Female 9:09 PM BLOOD AND PLASMA LABORATORY ASSISTANT Gender Identity Not on file Sexual Orientation Lesbian 05/24/2019 9: 06 AM CDT documented as of this encounter Progress Notes * Karlie Hernandez, MEDINA - 12/15/2023 2:37 PM CDT Initial SHOP call. Patient was inpatient at [facility] 12/01-12/13 for Afib w/ RVR following scheduled posterior spinal fusion. Patient reports feeling fairly well since discharge. Patient endorses moderate post op pain that she feels is well managed with her pain medication. Patient feels she is able to ambulate well and is getting around her home fairly well. Patient denies s/s of post op infection. Patient confirms she has all prescribed medications and reports compliance. Patient will have [facility] HH with SOC set for 12/18 per discharge notes. Post op wound check scheduled for 12/22 at 12 pm. Patient hasno questions or concerns at this time and consents to SHOP outreach. Provided OCM phone number and encouraged patient to call with any needs. documented in this encounter Plan of Treatment Not on file documented as of this encounter Visit Diagnoses Not on filedocumented in this encounter Additional Health Concerns Infection [...] documented as of this encounter Care Teams Auto Slip Cover Installer Relationship Specialty Start Date End Date Enmanuel Gan MD [address] [facility] [address] INTERNAL MEDICINE [place], [place] [id number] PCP - General Internal Medicine 04/26/20 Tg Houston MD [address] [place] [address] Consulting Physician Cardiology 07/18/20 Guerrero Hunter DPT [address] [facility] [address] [facility] [place] [address] Physical Therapist Physical Therapy 11/08/20 Guerrero Weiner, MRI SPECIALIST 4[address] [facility] [address] [place] [address] Biodiesel Production Technician Physical Therapy 12/12/20 Stephen Barth MD [address] [place] [address] Referring Physician Transplant 10/19/23 Karlie Hernandez, RN [address] [facility] [address] [place] [address] SHOP Outpatient Wicker Molded Candles 12/15/23 01/12/24 documented as of this encounter
--- OUTSIDE RECORDS SUMMARY | 2024-07-12 08:41 | XMS_ITS | Encounter Summary ---
Author Organization [facility] Address [address] [place] [address] Phone Care Team Providers Care J2Ee Consultant Name Role Phone Enmanuel Gan MD Primary Care Provider gT Houston MD Unavailable [phone] Guerrero Hunter DPT Unavailable [phone] Guerrero Weiner AVIONICS TECHNICIAN Unavailable [phone] Stephen Barth MD Unavailable [phone] Reason for Referral * Durable Medical Equipment (Routine) - Denied Specialty Diagnoses / Procedures Referred By Contac t Referred To Contact Diagnoses Fusion of spine of thoracolumbar region Procedures Miscellaneous DME Jeremy Michelle MD [address] [facility] [place] [address] Phone: tel: fax: [facility] (All Locations) Referral ID Status Reason Start Date Expiration Date Visits Re quested Visits Authorized [id number] Denied 12/14/2023 01/12/2025 1 0 Encounter Details Date Type Department Care Team (Late st Contact Info) Description 12/14/2023 Orders Only [facility] Orthopaedic Surgery [address] [place] [address] Jeremy Michelle MD [address] [facility] [address] [place] [address] 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 No 12/15/2023 Personal Safety Answer Date Recorded Have you ever been in or are you currently in a harmful physical or emotional relationship or is someone making you feel afraid or unsafe? Denies 12/03/2023 Comments No Sex and Gender Information Value Date Recorded Sex Assigned at Not on file Legal Sex Female 9:09 PM SEISMIC PROSPECTING OBSERVER HELPER Gender Identity Not on file Sexual Orientation Lesbian 05/24/2019 9: 06 AM CDT documented as of this encounter Progress Notes * Jeferson Ornelas CMA - 12/14/2023 2:37 PM CDT Procedures documented in this encounter Plan of Treatment Not on file documented as of this encounter Visit Diagnoses Diagnosis Fusion of spine of thoracolumbar region- Primary documented in this encounter Orders General Supply Count Last Ordered Date First Or dered Date MISCELLANEOUS DME 1 12/14/2023 documented in this encounter Care Teams J2Ee Consultant Relationship Specialty Start Date End Date Enmanuel Gan MD [address] [facility] [address] [place] [address] PCP - General Internal Medicine 04/26/20 Tg Houston MD [address] [place] [address] Consulting Physician Cardiology 07/18/20 Guerrero Hunter, PAULINOT [address] [facility] [address] [facility] [place] [address] Physical Therapist Physical Therapy 11/08/20 Guerrero Weiner, [facility] [address] [facility] [address] [place], [place] [id number] Valve Assembler Physical Therapy 12/12/20 Stephen Barth MD [address] [place] [address] Referring Physician Transplant 10/19/23 documented as of this encounter
--- OUTSIDE RECORDS SUMMARY | 2024-07-12 08:41 | XMS_ITS | Encounter Summary ---
Author Organization [facility] Address [address] [place] [address] Phone Care Team Providers Care Pickling Operator Name Role Phone Enmanuel Gan MD Primary Care Provider [phone] Tg Houston MD Unavailable [phone] Guerrero Hunter DPT Unavailable [phone] Guerrero Weiner TURRET PUNCH PRESS OPERATOR Unavailable [phone] Stephen Barth MD Unavailable [phone] Encounter Details Date Type Department Care Team (Late st Contact Info) Description 12/14/2023 Orders Only [facility] Orthopaedic Surgery [address] 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 Never 12/15/2023 Do you belong to [...] any time in the past 12 m [facility], were you homeless or living in a halfway (including now)? No 12/15/2023 Personal Safety Answer Date Recorded Have you ever been in or are you currently in a harmful physical or emotional relationship or is someone making you feel afraid or unsafe? Denies 12/03/2023 Comments No Sex and Gender Information Value Date Recorded Sex Assigned at Not on file Legal Sex Female 9:09 PM HR REPRESENTATIVE Gender Identity Not on file Sexual Orientation Lesbian 05/24/2019 9: 06 AM CDT documented as of this encounter Plan of Treatment Not on file documented as of this encounter Visit Diagnoses Diagnosis Fusion of spine of thoracolumbar region- Primary documented in this encounter Orders General Supply Count Last Ordered Date First Or dered Date BONE STIMULATOR 1 12/14/2023 documented in this encounter Care Teams Pickling Operator Relationship Specialty Start Date End Date Enmanuel Gan MD [address] [facility] [address] [place] [address] PCP - General Internal Medicine 04/26/20 Tg Houston MD [address] [place] [address] Consulting Physician Cardiology 07/18/20 Guerrero Hunter DPT [address] [facility] [address] [facility] [place] [address] Physical Therapist Physical Therapy 11/08/20 Guerrero Weiner, TURRET PUNCH PRESS OPERATOR [address] [facility] [place] [address] [place] [address] Antenna Installer Physical Therapy 12/12/20 Stephen Barth MD [address] [place] [address] Referring Physician Transplant 10/19/23 documented as of this encounter
--- OUTSIDE RECORDS SUMMARY | 2024-07-12 08:42 | XMS_ITS | Encounter Summary ---
Author Organization [facility] Address [address] [place] [address] Phone Care Team Providers Care Press Shop Supervisor Name Role Phone Enmanuel Gan MD Primary Care Provider [phone] Tg Houston MD Unavailable [phone] Guerrero Hunter DPT Unavailable [phone] Guerrero Weiner CARDROOM ATTENDANT Unavailable [phone] Stephen Barth MD Unavailable [phone] Karlie Hernandez RN Unavailable [phone] Encounter Details Date Type Department Care Team (Late st Contact Info) Description 12/04/2023 Telephone [facility] Cardiology [address] [facility] Advanced Medicine 8th [place] [address] [place] [address] Natividad Irizarry Social History Tobacco Use Types Packs/Day Years Used Date Smoking Tobacco: Never Smokeless Tobacco: Never Alcohol Use Standard Drinks/Week Comments Yes 5 (1 standard drink = 0.6 oz pur e alcohol) [facility] Utilities Answer Date Recorded In the [...] attend chur ch or orthodoxy services? 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 Infection Prevention will arrange screening. Please contact Infection Prevention. 12/02/2023 12/02/2023 12/10/2023 7:23 AM C DT documented as of this encounter Care Teams Press Shop Supervisor Relationship Specialty Start Date End Date Enmanuel Gan MD [address] [place] [address] PCP - General Internal Medicine 04/26/20 Tg Houston MD [address] [place] [address] Consulting Physician Cardiology 07/18/20 Guerrero Hunter, DPT [address] [facility] [address] [place] [address] Physical Therapist Physical Therapy 11/08/20 Guerrero Weiner, [facility] [address] [facility] [address] [place] [address] Fibre Optics Jointer Physical Therapy 12/12/20 Stephen Barth MD [address] [place] [address] Referring Physician Transplant 10/19/23 Karlie Hernandez, RN [address] [facility] [address] [place] [address] SHOP Outpatient Transitional Studies Instructor 12/15/23 01/12/24 documented as of this encounter
--- OUTSIDE RECORDS SUMMARY | 2024-07-12 08:42 | XMS_ITS | Encounter Summary ---
Author Organization [facility] Healthcare Address [address] [place] [address] Care Team Providers Care Motor Vehicle Emissions Inspector Name Role Phone Enmanuel Gan MD Primary Care Provider [phone] Tg Houston MD Unavailable [phone] Guerrero Hunter DPT Unavailable [phone] Guerrero Weiner CHIPPER Unavailable [phone] Stephen Talbert MD Unavailable [phone] Reason for Visit * Auth/Cert (Routine) Specialty Diagnoses / Procedures Referred By Contac t Referred To Contact Diagnoses Fusion 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 Fusion of spine of lumbar region [M43.26] Pseudoarthrosis of lumbar spine [S32.009K] Procedures AK ARTHRODESIS POSTERIOR/PSTLAT TQ 1NTRSPC LUMBAR AK ARTHRODESIS PST/PSTLAT TQ 1NTRSPC EA ADDL NTRSPC AK POSTERIOR SEGMENTAL INSTRUMENTATION 7-12 VRT SEG AK PELVIC FIXATION OTHER THAN SACRUM AK OSTEOTOMY SPINE PST/PSTLAT APPR 1 VRT SGM LMBR AK OSTEOT SPI PST/PSTLAT APPR 1 VRT SGM EA VRT SGM AK AUTOGRAFT SPINE SURGERY LOCAL FROM SAME INCISION AK ALLOGRAFT FOR SPINE SURGERY ONLY MORSELIZED FUSION DECOMPRESSION LAMINECTOMY WITH INSTRUMENTATION - FusionStorm EXPEDIUM--Posterior spinal instrumented fusion revision [id number] with posterior column osteotomies T12/L1 and L1/2, exploration of fusion, removal of hardware, autograft, allograft, bone morphogentic protein, spinal cord monitoring. REMOVAL HARDWARE SPINE OSTEOTOMY POSTERIOR SPINAL SPINAL CORD MONITORING BONE GRAFT WITH BONE MORPHOGENIC PROTEIN Referral ID Status Reason Start Date Expiration Date Visits Re quested Visits Authorized [id number] 1 1 Encounter Details Date Type Department Care Team (Latest Contact Info) Description 12/02/2023 6:42 AM CDT - 12/14/2023 4:51 PM CDT Hospital Encounter [facility] [address] [place] [address] Jeremy Michelle MD [address] [facility] [address] [place] [address] Atrial fibrillation with RVR (CMS/HCC) (HCC) (Primary Dx); Pseudoarthrosis of lumbar spine; Fusion of spine of lumbar region; Paroxysmal atrial fibrillation (CMS/HCC) (HCC); Apical variant hypertrophic cardiomyopathy (HCC) Discharge Disposition: Discharge to home, home health skilled care Social History Tobacco Use Types Packs/Day Years Used Date Smoking Tobacco: Never Smokeless Tobacco: Never Alcohol Use Standard Drinks/Week Comments Yes 5 (1 standard drink = 0.6 oz pur e alcohol) [facility] Utilities Answer Date Recorded In the past 12 months has [employer], gas, oil, or water [employer] threatened to shut off services in your [...] often do you attend chur ch or taoist services? Never 12/15/2023 Do you belong to [...] living in a intermediate (including now)? No 12/15/2023 Personal Safety Answer Date Recorded Have you ever been in or are you currently in a harmful physical or emotional relationship or is someone making you feel afraid or unsafe? 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 Gender Identity Not on file Sexual Orientation Lesbian 05/24/2019 9: 06 AM CDT documented as of this encounter Last Filed Vital Signs Vital Sign Reading Time Taken Comments Blood Pressure 110/47 12/14/2023 4:45 PM CDT Pulse 58 12/14/2023 4:05 PM CDT Temperature 36.6 ??C (97.8 ??F) 12/14/2023 3:03 AM CD T Respiratory Rate 18 12/14/2023 4:05 PM CDT Oxygen Saturation 97% 12/14/2023 4:05 PM CDT Inhaled Oxygen Concentration - - Weight 79.4 kg (175 lb) 12/03/2023 10:55 AM CDT Height 165.1 cm (5' 5 ) 12/03/2023 10:55 AM CDT Body Mass Index 29.12 12/03/2023 10:55 AM CDT documented in this encounter Discharge Summaries * Dalia Muhammad, LU - 12/14/2023 4:51 PM CDT Images from the original note were not included. Spine Inpatient Discharge Summary Admitting Provider: Jeremy Michelle MD Discharge Provider: No att. providers found Primary Care Physician at Discharge: Enmanuel Gan MD [phone] Admission Date: 12/02/2023 Discharge Date: 12/25/2023 Primary Discharge Diagnosis: Pseudoarthrosis of lumbar spine Secondary Discharge Diagnosis: Principal Problem: Pseudoarthrosis of lumbar spine Active Problems: Dyslipidemia Chronic nonseasonal allergic rhinitis due to pollen Major depressive disorder, single episode, moderate (HCC) Essential hypertension Paroxysmal atrial fibrillation (CMS/HCC) (HCC) Fusion of spine of thoracolumbar region ICD (implantable cardioverter-defibrillator), dual, in situ Resolved Problems: No resolved hospital problems. DETAILS OF HOSPITAL STAY Chief Complaint: Back Pain History of Present Illness: The patient is a 78 y.o. year old female cared for by Dr. 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 She has some baseline numbness around her knees in an L3 type area from her original surgery. She continues to feel like she is leaning forward. On her films we reviewed him she has more kyphosis at her thoracolumbar junction. The risks, benefits, alternatives and complications of an Posterior Lumbar Fusion and Decompressionwere discussed with the patient at length prior to surgery. The patient elected to proceed with a surgical intervention given the significant influence on their quality of life. Informed consent was obtained prior to surgery. Operative Procedures Performed: Procedure(s): FUSION DECOMPRESSION LAMINECTOMY WITH INSTRUMENTATION - DEPUY EXPEDIUM--Posterior spinal instrumented fusion revision [id number] with posterior column osteotomies T12/L1 and L1/2, exploration of fusion, removal of hardware, autograft, allograft, bone morphogentic protein, spinal cord monitoring. REMOVAL HARDWARE SPINE OSTEOTOMY POSTERIOR SPINAL SPINAL CORD MONITORING BONE GRAFT WITH BONE MORPHOGENIC PROTEIN Hospital Course 12/01 OR for Revision PSF [id number], decompression 12/02 Vtach, transferred to ICU for tachycardia and hypotension 12/03: Cardiology c/s, AF with RVR overnight, amio bolus x 2 and restart gtt 12/05: transition to PO amio, borderline BPs with initiation of metoprolol 12/06: afib RVR overnight, amio bolus x1, increase PO amio 12/07 Bedoya removed, voiding. Rehab referrals sent 12/08 Awaiting auth for rehab 12/09 Awaiting auth for rehab 12/11 denied rehab. SNF referrals sent 12/13 therapy recs home with home health, patient in agreement. The patient was able to wean away from intravenous narcotics , the patient was able to mobilize with physical and occupational therapy, the patient had post operative images and those images were reviewed by the surgeon, and the patient was felt to be stable for discharge to home on 12/14/23. Problems addressed during this hospitalization: Pseudoarthrosis of lumbar spine --s/p surgical intervention on 12/01, closed with db, drains x 1 --Reports improvement in preoperative pain -Post-op x-rays completed on 12/07 --therapy recommended rehab --Patient will follow up with Dr. Michelle outpatient 2. Acute on chronic pain RADIOLOGY ASST weaned off. Pain controlled on scheduled Robaxin, Lidoderm; PRN Oxycodone 3. Atrial fibrillation with RVR --Afib w/ RVR 12/02, patient transferred to ICU --Cardiology following, Amiodarone started, home metoprolol resumed --Patient to follow-up with cardiology within one week of discharge 4. Anxiety and Depression --Home Cymbalta continued, prn Ativan, holding home doxepin Consults: Cardiology Other Procedures: None GI/ Concerns: Tolerating regular diet. Last bowel movement was 12/08 Bedoya removed on 12/07, now voiding spontaneously. Therapy recommendations: Home with home health Incision: Skin glue Brace: TLSO Surgical drains: AUDREY dc'd Central Line Removed: N/A Blood Transfusions: N/A Notable medications: Pain medications: scheduled Robaxin, Lidoderm; PRN Oxycodone 2. Steroids: none 3. Antibiotics: none 4. Anticoagulation/antiplatelet agents: Lovenox x30 days Test Results Pending at Discharge: Pending Labs Order Current Status Magnesium In process Pertinent Diagnostic Results: MRI Lumbar Spine 10/06: 1. Postsurgical changes of L1-L4 posterior instrumented fusion with L2-S1 discectomy and interbody fusion with posterior decompression. 2. Interval accelerated degeneration at T12-L1 with disc height loss and desiccation with new edema of the T12 endplate is favored to be degenerative. No high-grade neural foraminal or spinal canal stenosis. XR Scoliosis 12/07: Posterior instrumented fusion from T8 to the pelvis. Mild sagittal imbalance but otherwise no residual scoliosis. Physical Exam at Discharge: Gen: no acute distress Neuro: A&Ox3 Dressing: clean/dry/intact Motor: Muscle Strength Right Left Shoulder abduction (C5) 5/5 5/5 Elbow flexion (C5/6) 5/5 5/5 Elbow extension (C7) 5/5 5/5 Wrist extension (C6) 5/5 5/5 Wrist flexion (C7) 5/5 5/5 Leave Manager (C8) 5/5 5/5 Interosseous of hand (T1) [...] WWP Discharge Condition: Good Vital Signs Pulse: 58 Resp: 18 BP: 110/47 Temp: 36.6 ??C (97.8 ??F) Weight: 79.4 kg (175 lb) SpO2: 97 % Follow-up: Spine: Scheduled for 12/22 at 12p with Miguel Angel RN for wound check, 01/04 at 740a with Miguel Angel . Primary Care Physician Lab tests/imaging necessary on follow-up: standing xrays of the total spine Future Appointments Date Time Provider Department Center 01/05/2024 7:40 AM Jeremy Michelle MD [id number] OS 04/04/2024 1:00 PM Clara Thakkar NP [facility] 260 Specialty 04/04/2024 1:15 PM [facility] 260C DEVICE CHECK [facility] CAR 260 Specialty Chem/LFT Lab History Latest Ref Rng & Units 12/04/2023 12/05/2023 12/06/2023 20:51 12/07/2023 20:33 Labs-Chem/LFT Sodium 135 - 145 mmol/L 136 135 137 136 Creatinine 0.60 - 1.10 mg/dL 0.54 0.56 0.62 0.63 Bilirubin, total 0.1 - 1.2 mg/dL 0.3 AST 10 - 45 Units/L 132 ALT 7 - 45 Units/L 76 Alk phos 40 - 130 Units/L 84 CrCl- Actual Body Weight (Cockcroft-Gault) 109.3 105.4 95.2 93.7 Details More abnormal values are hidden. Newest values shown. Go to activity for more data. More values are hidden. Newest values shown. Go to activity for more data. Hematology Lab History Latest Ref Rng & Units 12/04/2023 21:28 12/05/2023 12/06/2023 22:24 12/07/2023 20:33 Labs - Hematology WBC 3.8 - 9.9 K/cumm 11.1 9.5 6.9 8.9 Total Hb, POC 11.9 - 15.5 g/dL 8.7 8.9 8.7 9.1 Hct 35.6 - 45.5 % 25.8 25.9 25.8 26.9 Plt 150 - 400 K/cumm 148 173 208 272 Details More abnormal values are hidden. Newest values shown. Go to activity for more data. More values are hidden. Newest values shown. Go to activity for more data. Discharge Medication List: Current Medications TAKE these medications acetaminophen 500 mg capsule Take 2 capsules (1,000 mg total) by mouth every 6 (six) hours For: pain, Pain alendronate 70 mg tablet Take 1 tablet (70 mg total) by mouth every 7 days Thursday For: decreased bone mass following menopause Commonly known as: FOSAMAX amiodarone 200 mg tablet Take 2 tablets (400mg) the evening of 12/14/23. Starting 12/15/23, take one tablet (200mg) once a day. Follow up with your senior cyber intelligence analyst within one week of discharge. Commonly known as: PACERONE atorvastatin 20 mg tablet Take 1 tablet (20 mg total) by mouth nightly For: excessive fat in the blood Commonly known as: LIPITOR azelastine 137 mcg (0.1 %) nasal spray Administer 1 spray into each nostril 2 (two) times a day as needed for rhinitis or allergies For: seasonal runny nose Commonly known as: ASTELIN CHOLECALCIFEROL (VITAMIN D3) ORAL Take 1 tablet by mouth every morning For: supplement DULoxetine DR 60 mg capsule Take 1 [...] mg total) under the skin daily for 19 days LAST DOSE ON 01/02/24. DO NOT TAKE LOVENOX AND ELIQUIS ON THE SAME DAY. For: deep vein thrombosis prevention Commonly known as: LOVENOX fexofenadine-pseudoephedrine 60-120 mg per 12 hr tablet Take 1 tablet by mouth 2 (two) times a day as needed for allergies For: inflammation of the nose due to an allergy Commonly known as: KIMBERLY-D fluticasone propionate 50 mcg/actuation nasal spray inhale 1 spray (50MCG) by intranasal route every day in each nostril Commonly known as: FLONASE furosemide 40 mg tablet Take 1 tablet (40 mg total) by mouth 2 (two) times a day This medication dose was changed during your admission. Follow up with your senior cyber intelligence analyst within one week of discharge regarding this medication. Commonly known as: LASIX lidocaine 4 % adhesive patch,medicated Place 2 patches on the skin daily Do not place on or around surgical incision. Commonly known as: ASPERCREME methocarbamoL 750 mg tablet Take 1 tablet (750 mg total) by mouth every 8 (eight) hours Commonly known as: ROBAXIN metoprolol tartrate 25 mg immediate release tablet TAKE 1 TABLET(25 MG) BY MOUTH TWICE DAILY Commonly known as: LOPRESSOR multivitamin with folic acid 400 mcg tablet Take 1 tablet by mouth daily senna-docusate 8.6-50 mg Take 2 tablets by mouth 2 (two) times a day as needed for constipation Do not take if you experience diarrhea For: constipation Commonly known as: PERICOLACE Discharge Instructions: Activity Instructions Discharge Activity: Driving restrictions -Do not drive for 6 weeks or while taking pain medications. Discharge Activity: Lifting restrictions -Do NOT lift greater than 10 pounds for 6 weeks. -Do NOT lift anything above your head. Discharge Activity: Out of bed walking -Out of bed walking at least 6-8 times every day -Ask your surgeon before doing any other kind of exercise Discharge activity: Activity restrictions -Do not go back to work until your surgeon says it's OK. -Do not jog, run or bike until your surgeon says it's OK. 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 -Do not flex (bring your head to your chest) or extend (lift your chin up high and away from your chest) unless your surgeon says it's OK. -Slowly work up to your normal activities at home with the exceptions as already noted. Thoracic Lumbar Sacral Orthotic -Your surgeon has given you a TLSO (Thoracic Lumbar Sacral Orthotic) brace to wear. You should wearthis brace while ambulating, ok to remove when sitting or in bed until your follow up appointment with Dr. Michelle. Contact Information for Follow-ups Enmanuel Gan MD Specialty: Internal Medicine Relationship: PCP - General [address] [place] [address] [facility] [address] Next Steps: Follow up Other Instructions Care Instructions: Incisions -Do not use lotions or creams on your incision -Do not place ice or heat directly on your incision Care Instructions: No tub baths -No tub baths, whirlpools or swimming until your doctor says it's ok. Discharge Wound Type: Skin Glue Special glue has been placed on your incision. It will flake off over 1 week. Do not pick, scratch or rub. This may cause it to come off before your incision has healed. Discharge exercises -Continue the exercises your therapist gave you in the hospital Incentive Spirometry Use your incentive spirometer 10 times every hour while awake for one week. SEE AVS Cosigned by Jeremy Michelle MD at 12/27/2023 5:24 PM CDT documented in this encounter Discharge Instructions * Discharge Instructions* Ivy Ochoa NP - 12/03/2023 8:22 AM CDT Please follow up with your senior cyber intelligence analyst within 1 week of discharge. If you have not received information for an appointment with your senior cyber intelligence analyst within a week of discharge please contact our office at to schedule an appointment within 4 weeks of discharge from the hospital . POSTOPERATIVE INSTRUCTIONS FOR POSTERIOR SPINE FUSION 1. SPINE PRECAUTIONS: no bending, lifting more than 10 lbs, twisting, arching, or rotating your back. You should sit in a straight back chair with arms. Remember to logroll in bed. 2. DIET: You have no specific restrictions on your diet. If you are a diabetic it is essential to have control of you glucose levels, if they are high you are at high risk for infection. Advance yourdiet as tolerated. You may have difficulties with constipation following surgery. Drink plenty of water and eat appropriately. If you have constipation longer than 5 days or any nausea or vomiting, call the office. You may take a multivitamin daily. You may take your previously prescribed/recommended vitamin D supplement. You should take a calcium supplement daily once you are no longer constipated. You should not take any extra vitamins, supplements or herbal medications until at least two weeks after your surgery date. If you have questions or concerns please call the office or as your hospital staff before leaving. 3. DISCOMFORT: The amount of pain you will experience is variable. If you have pain that cannot be controlled with the medicine you have been discharged with, you should notify your physician's office. 4. INCISION CARE: Your incision is closed with dissolvable sutures. You may have steri strips or skin glue on your incision, let it fall off on it's own. Once you are home your incision should be open to the air. If you left the hospital with a dressing remove it one day after discharge. Do not apply any lotions or ointments to the incision, steri strips or surrounding skin. Do not place heat directly to the incision, ice is ok for no longer than 15 minutes at a time. Look at your incision everyday and if you have any redness, swelling, any openings, or drainage call the office. 5. ACTIVITY: You should walk 6-8 times per day using your walker. You should attempt to increase the number of minutes you walk every day. Do not jog, run, bike or any other form of working out untilyou follow up or speak with Dr. Michelle's nurse. No driving until your follow up and you have been cleared and you are off narcotics. Do not go back to work unless your surgeon has given you clearance. Do not lift anything above your head. Do not do any sanitation worker cleaning equipment like laundry or vacuuming that may cause you to bend or twist. 6. SHOWERS: You may shower with your incision covered with Glad press and seal. Keep the incision dry. If it gets wet pat dry and allow to dry completely. Do not take baths or sit in a hot tub or pool until your surgeon says it???s OK. Do not get your incision wet for two weeks postoperatively. 7. EMERGENT CARE: Contact your physician if you have any of these problems after surgery: drainage,severe pain, fever, loose control of your bowels or urine, new numbness tingling or weakness, swelling/warmth or painful areas in your legs or any other major medical concerns after surgery. Call theoffice during normal business hours (M-F 8-4:30) at [phone] or after hours at the exchange at [phone] or [phone]. 7. MEDICATIONS: Adjustments may have been made to your home medications postoperatively refer to medication recommendations for what to take at home. Do not resume blood thinners until two weeks postoperatively. Call the office before you resume blood thinners. Do not take anti-inflammatory medications (such as - Motrin, Advil, Ibuprofen, Celebrex, and Naprosyn) unless your surgeon says it???s OK. These medications can keep your bones from healing properly after surgery. 8. APPOINTMENTS: You will come back to see your surgeon, your surgeons nurse, or an FIELD SERVICE REP approximately six weeks after your surgery. Please call [phone] if you need to change an appointment. documented in this encounter Medications at Time of Discharge amiodarone (PACERONE) 200 mg tabletIndications :Prevention of [...] mg total) by mouth every morning 03/11/2023 fexofenadine-pseu doephedrine (Kimberly-D 12 Hour) 60-120 mg per 12 hr tablet flutic tablet(s), 0 08/20/2023 fluticasone propionate (FLONASE) 50 mcg/actuation nasal spray 1 spray(s), Nasal, daily, 1 each, [place], 0 08/20/2023 furosemide (LASIX) 40 mg tabletIndications :Peripheral Edema due to Chronic Heart Failure [The details of the medication are not available because there are pending changes by a home health clinician.] 60 tablet 12/14/2023 sucralfate (Carafate) 1 gram tablet 2 tablets (2 g total) 08/20/2023 enoxaparin (LOVENOX) 40 mg/0.4 mL syringeIndication s:Deep Vein Thrombosis Prevention Inject 0.4 mL (40 mg total) under the skin daily for 19 days LAST DOSE ON 01/02/24. DO NOT TAKE LOVENOX AND ELIQUIS ON THE SAME DAY. 7.6 mL 12/14/2023 4 acetaminophen 500 mg capsuleIndication s:Pain,Pain Take 2 capsules (1,000 mg total) by mouth every 6 (six) hours 90 tablet 12/14/2023 4 alendronate (FOSAMAX) 70 mg tabletIndications :Post-Menopausal Osteoporosis Take 1 tablet (70 mg total) by mouth every 7 days Thursday08/18/2023 4 azelastine (ASTELIN) 137 mcg (0.1 %) nasal sprayIndications: Seasonal Allergic Rhinitis Administer 1 spray into each nostril 2 (two) times a day as needed for rhinitis or allergies 12/30/2021 4 CHOLECALCIFEROL, VITAMIN D3, ORALIndications:s upplement Take [...] around surgical incision. 10 patch 12/15/2023 4 methocarbamoL (ROBAXIN) 750 mg tablet Take 1 tablet (750 mg total) by mouth every 8 (eight) hours 60 tablet 12/14/2023 4 metoprolol tartrate (LOPRESSOR) 25 mg immediate release tabletIndications :Atrial Arrhythmia TAKE 1 TABLET(25 MG) BY MOUTH TWICE DAILY 180 tablet 1 07/31/2023 4 multivitamin with folic acid 400 mcg tablet Take 1 tablet by mouth daily 12/15/2023 4 oxyCODONE (ROXICODONE) 15 mg immediate release tabletIndications :Pain Take 0.5 tablets (7.5 mg total) by mouth every 4 (four) hours as needed for pain 40 tablet 12/14/2023 4 senna-docusate (PERICOLACE) 8.6-50 mgIndications:con stipation Take 2 tablets by mouth 2 (two) times a day as needed for constipation Do not take if you experience diarrhea 60 tablet 12/14/2023 4 documented as of this encounter Ordered Prescriptions Prescription Sig Dispense Quantity Refills Last Filled Start Date End Date amiodarone (PACERONE) 200 mg tabletIndications :Prevention of Recurrent Atrial Fibrillation [The details of the medication are not available because there are pending changes by a home health clinician.] 30 tablet 12/14/2023 furosemide (LASIX) 40 mg tabletIndications :Peripheral Edema due to Chronic Heart Failure [The details of the medication are not available because there are pending changes by a home health clinician.] 60 tablet 12/14/2023 enoxaparin (LOVENOX) 40 mg/0.4 mL syringeIndication s:Deep Vein Thrombosis Prevention Inject 0.4 mL (40 mg total) under the skin daily for 19 days LAST DOSE ON 01/02/24. DO NOT TAKE LOVENOX AND ELIQUIS ON THE SAME DAY. 7.6 mL 12/14/2023 4 oxyCODONE (ROXICODONE) 15 mg immediate release tabletIndications :Pain Take 0.5 tablets (7.5 mg total) by mouth every 4 (four) hours as needed for pain 40 tablet 12/14/2023 4 senna-docusate (PERICOLACE) 8.6-50 mgIndications:con stipation Take 2 tablets by mouth 2 (two) times a day as needed for constipation Do not take if you experience diarrhea 60 tablet 12/14/2023 4 senna-docusate (PERICOLACE) 8.6-50 mgIndications:con stipation Take 2 tablets by mouth 2 (two) times a day 60 tablet 12/14/2023 4 lidocaine (ASPERCREME) 4 % adhesive patch,medicated Place 2 patches on the skin daily Do not place on or around surgical incision. 10 patch 12/15/2023 4 senna-docusate (PERICOLACE) 8.6-50 mgIndications:con stipation Take 2 tablets by mouth 2 (two) times a day 60 tablet 12/14/2023 4 multivitamin with folic acid 400 mcg tablet Take 1 tablet by mouth daily 12/15/2023 4 methocarbamoL (ROBAXIN) 750 mg tablet Take 1 tablet (750 mg total) by mouth every 8 (eight) hours 60 tablet 12/14/2023 4 Eliquis 5 mg tabletIndications :atrial fibrillation DO NOT TAKE THIS MEDICATION UNTIL JANUARY 03, 2024. ON JANUARY 03, 2024 YOU MAY RESUME TAKING 5MG BY MOUTH TWICE A DAY. 12/14/2023 4 acetaminophen 500 mg capsuleIndication s:Pain,Pain Take 2 capsules (1,000 mg total) by mouth every 6 (six) hours 90 tablet 12/14/2023 4 documented in this encounter Discharge Disposition Disposition Code Departure Means Destination Comment s Discharge to home, home heal th skilled care [facility] documented in this encounter Progress Notes * Karina Quevedo, PT - 12/14/2023 9:30 AM CDT Physical Therapy 12/14/23 8470 Other Comments Other PT Comments Per discussion with CHIPPER (Rajiv), patient has progressed sufficiently to discharge home with family assistance; reports her spouse/neighbor can provide full-time assistance as needed.Patient has achieved all short-term goals; will be discharged from physical therapy services this da te. Plan Plan Discharge;If this is the last note, consider this the discharge summary Recommendation/Plan PT Recommendation/Plan Home with family PT Frequency during current admission Discharge from this Service Progress during current admission Discontinue PT PT - OK to Discharge Yes * Rajiv Shi, CHIPPER - 12/14/2023 8:20 AM CDT Physical Therapy Patient Name: Macie Briseno Date of : 1945 Date of Service: 12/14/2023 Physical Therapy Progress Note NOTE: This is a summary note of the khanna components of the treatment session. For full details, review chart for all flowsheets documented on by this physical therapy clinician on this date. Vital signs documented in vital signs flowsheet. Care plan progress documented in Care Plan Activity. For questions, please review the treatment team and contact the PT or CHIPPER currently assigned to this patient. If a physical therapy clinician is not assigned to this patient, please call [phone]. 12/14/23 0820 PT Last Visit Session Type Treatment PT Received On 12/14/23 Safe Environment Arm band checked;Patient found sitting in chair;Gait belt not utilized, see comment (Inferior edge of TLSO utilized) Subjective Agreeable to Therapy Family/Caregiver Present No Precautions Precautions Spinal/Back Braces/Orthoses TLSO (Donned in sitting, and worn throughout therapy session) Precaution Comments Verbally reviewed spine precautions prior to all mobility, pt. verbalized understanding and demonstrated adherence. Pts. knowledge was assessed through teachback at end of treatment session and patient able to have good carry over Activity Tolerance Activity Tolerance Comments Karyna: Fairly Light Pain Assessment Pain Assessment 0-10 Pain Score 4 Pain Location Back (Lumbar) Pain Interventions Physical Therapy;Repositioned;Exercise Cognition Arousal/Alertness Alert;Appropriate responses to stimuli Orientation Oriented X4 (person, place, time, situation) Following Commands Follows all commands and directions without difficulty Static Sitting Balance Static Sitting-Balance Support No upper extremity supported;Feet supported Static Sitting-Sitting Surface Chair Static Sitting-Level of Assistance Independent Dynamic Sitting Balance Dynamic Sitting-Balance Support Bilateral upper extremity supported;Feet supported Dynamic Sitting-Balance Forward lean;Lateral lean (scooting to the edge of the chair) Dynamic Sitting-Sitting Surface Chair Dynamic Sitting-Level of Assistance Independent Static Standing Balance Static Standing-Balance Support Bilateral upper extremity supported (on w/w) Static Standing-Standing Surface Floor Static Standing-Level of Assistance (Modified Independent) Static Standing-Comment/# of Minutes Use of w/w Seated Seated-Exercises Lower extremity;Specific exercises Seated-Exercise Type Ankle pumps;Long arc quads;ABduction;ADduction Reps/Sets 10/ Seated-Motion AROM Seated-Exercise Comments Pt. completed seated therapeutic exercises for increased strength, balance, and tolerance of functional activitiy. By completing these pre-gait activities, the patient is providing a cardiovascular warm up and assisting in maintaining joint integrity. Transfer 1 Transfer From 1 Sit Transfer Type 1 To and from Transfer to 1 Stand Technique 1 Sit to stand;Stand to sit Transfer Device 1 Wheeled walker Transfer Level of Assistance 1 Modified Independent Trials/Comments 1 Use of w/w Ambulation 1 Distance (ft) 1 125ft (+ 100ft + 85ft + 20ft) Surface 1 Level tile Device 1 Wheeled walker Other Apparatus 1 Wheelchair follow Assistance 1 Modified Independent Gait Deviations 1 Tanya - decreased;Weight bearing through UE???s - increased (downward gaze) Quality of Gait 1 Significantly decreased tanya Stairs Stair Comments Patient reports she has an elevator and stair lift at home Basic Mobility - 6 Click How much difficulty does the patient have: Turning over in bed 3 How much difficulty does the patient currently have: Sitting down and standing up from a chair witharms? 4 How much difficulty does the patient have: Moving from lying on back to sitting on the side of the bed? 3 How much difficulty does the patient have: Moving to and from a bed to a chair including wheelchair? 4 How much help does the patient currently need: Walk in hospital room? 4 How much help from another person does the patient currently need: Climbing 3-5 steps with a railing? 3 Total 6 Click Score (range 6-24) 21 Score Interpretation 45.55 Safe Environment End of Therapy Session Safe Environment End of Therapy Session Patient left in recliner;Call light within reach;Overbed table within reach Plan Plan (Plan to discuss change in plan and D/C from PT with Karina Quevedo DPT) Recommendation/Plan PT Recommendation/Plan (Plan to discuss change in Rec to home with family with Karina Quevedo DPT) Multi-Disciplinary Problems (from Physical Therapy) Active Problems Problem: Mobility Start Date: 12/08/23 Goal Start Date Expected End Date End Date LTG - Patient will ambulate community distance 12/08/23 03/21/24 -- Goal Details: 400' with use of cane, modified independently Goal Start Date Expected End Date End Date STG - Patient will ambulate 12/08/23 12/15/23 -- Goal Details: 150' with wheeled walker, modified independent Problem: Transfers Start Date: 12/08/23 Goal Start Date Expected End Date End Date STG - Patient to transfer to and from sit to supine 12/08/23 12/15/23 -- Goal Details: Supine <> side lying <> sit: supervision Problem: Orthotic Start Date: 12/08/23 * Ivelisse Olivares MD - 12/14/2023 7:02 AM CDT Orthopaedic Spine Service Daily Progress Note Admit Date: 12/02/2023 Hospital Day: Dx: Pseudoarthrosis PMH: HTN, HLD, CAD, CHF, RBBB, A-fib with dual lead ICD, chronic pain, PALA with cochlear implant Proc: 12/01 Revision PSF [id number], decompression Exam: Normal motor exam. SILT. : 1945 Admit: 12/02/2023 Interval History: AFVSS. NAEON. No new labs. Pain controlled. Exam: Dressing clean/dry/intact. 11/28 BUE/BLE, SILT all dermatomes. Plan: Discharge to SNF pending SNF acceptance - referrals sent Thursday. Discuss with PTre possible home with HH dispo given suboptimal SNF locations per patient. Continue Lovenox for DVTppx - no oral anticoagulants until POD #30. Edited by: Ivelisse Olivares MD at 12/14/2023 6482 Objective Vitals: 24hr Min/Max: Temp Min: 36.6 ??C (97.8 ??F) Max: 36.7 ??C (98.1 ??F) Pulse Min: 58 Max: 84 BP Min: 103/62 Max: 132/49 Resp Min: 16 Max: 18 SpO2 Min: 92 % Max: 97 % I/O last 2 completed shifts: In: - Out: 350 [Urine:350] No intake/output data recorded. Physical Exam: Gen: no acute distress Neuro: A&Ox3 Dressing: clean/dry/intact Motor: Muscle Strength Right Left Shoulder abduction (C5) 5/5 5/5 Elbow flexion (C5/6) 5/5 5/5 Elbow extension (C7) 5/5 5/5 Wrist extension (C6) 5/5 5/5 Wrist flexion (C7) 5/5 5/5 Leave Manager (C8) 5/5 5/5 Interosseous of hand (T1) [...] WWP Lab/Diagnostic Review: Recent Labs Lab Units 12/07/233 SODIUM mmol/L 136 POTASSIUM PLASMA mmol/L 4.2 CHLORIDE mmol/L 102 CO2 mmol/L 27 ANIONGAP mmol/L 7 GLUCOSE mg/dL 98 BUN SERUM mg/dL 7 CREATININE mg/dL 0.63 CALCIUM mg/dL 8.2* WBC K/cumm 8.9 HEMOGLOBIN g/dL 9.1* HEMATOCRIT % 26.9* PLATELETS K/cumm 272 Micro: Lab Results Component Value Date MICROBIOLOGY Amended Report - Complete: Negative 12/06/2023 MICROBIOLOGY Final Report: Rare Staphylococcus epidermidis (.) 12/02/2023 [x] Cardiology recs: restart metoprolol and Lasix 40mg BID, continue amiodarone, hold diltiazem Dispo: Insurance denied rehab, awaiting SNF placement 12/07: Bedoya removed, voiding. Rehab referrals sent. 12/11: Awaiting SNF placement Consults: Cardiology - done Meds: Multimodal pain Results: N/A Drains / bedoya: AUDREY drain discontinued / Bedoya removed ASA / PLX / Anticoag: SCDs, Lovenox starting POD #2 Incision / Brace: monocryl, dermabond, tegaderm / custom TLSO brace Dispo / FU: Scheduled for 12/[address] Michelle RN for wound check, 01/[address] Michelle Edited by: Ivelisse Olivares MD at 12/14/2023 0702 Please call with questions during daytime. See below for overnight issues. If you know the resident's name on the appropriate orthopaedic surgery team, please use [email or web address] to page resident directly. If questions arise and the appropriate resident can't be reached or you are calling overnight, please contact [phone] ([facility] 7:30 PM - 6:30 AM - Floor Resident) or [phone] (24 hours/day - Consult Resident) Cosigned by Rg Sultana MD at 12/14/2023 10:37 AM CDT * Ashia Bustillos, PT - 12/13/2023 3:25 PM CDT Physical Therapy Physical Therapy Progress Note NOTE: This is a summary note of the khanna components of the treatment session. For full details, review chart for all flowsheets documented on by this physical therapy clinician on this date. Vital signs documented in vital signs flowsheet. Care plan progress documented in Care Plan Activity. For questions, please review the treatment team and contact the PT or CHIPPER currently assigned to this patient. If a physical therapy clinician is not assigned to this patient, please call [phone]. 12/13/23 1525 PT Last Visit Session Type Treatment PT Received On 12/13/23 Safe Environment Arm band checked;Patient found sitting in chair;Session completed bedside Subjective Agreeable to Therapy Family/Caregiver Present Yes (Spouse, Sunita) Precautions Precautions Fall risk;Spinal/Back Braces/Orthoses TLSO (Donned in sitting, worn with all mobility, and doffed in supine at end of session.) Precaution Comments Therapist verbally reviewed spinal precautions with patient. Patient required minimal verbal cues to recall precautions. Patient required minimal verbal cues to maintain precautions during mobility. Activity Tolerance Activity Tolerance Comments KARYNA: somewhat hard Pain Assessment Pain Assessment 0-10 Pain Score 6 Pain Type Surgical pain Pain Location Back (Lumbar) Pain Interventions Distraction;Physical Therapy;Repositioned Cognition Arousal/Alertness Alert;Appropriate responses to stimuli Orientation Oriented X4 (person, place, time, situation) Following Commands Follows all commands and directions without difficulty Static Sitting Balance Static Sitting-Balance Support No upper extremity supported;Feet supported Static Sitting-Sitting Surface Bed;Chair (chair without posterior support) Static Sitting-Level of Assistance Distant supervision Static Sitting-Comment/# of Minutes Distant supervision required for safety due to mild imbalance. Static Standing Balance Static Standing-Balance Support Bilateral upper extremity supported Static Standing-Standing Surface Floor Static Standing-Level of Assistance Close supervision Static Standing-Comment/# of Minutes Upper extremities supported on wheeled walker. Close supervision for safety due to mild imbalance. Bed Mobility 1 Bed Mobility From 1 Supine Bed Mobility Type 1 To and from Bed Mobility to 1 Edge of bed Level of Assistance 1 Contact Guard Assist;Minimal verbal cues Bed Mobility Comments 1 Head of the bed flat. Log roll technique used. Contact guard assist required for steadying once coming to sitting and to guide lower extremities. Transfer 1 Transfer From 1 Sit Transfer Type 1 To and from Transfer to 1 Stand Technique 1 Sit to stand;Stand to sit Transfer Device 1 Wheeled walker Transfer Level of Assistance 1 Standby Assist Trials/Comments 1 Stand by assist required for safety due to mild imbalance. Ambulation 1 Distance (ft) 1 65 (x4 (260ft total) with standing rest breaks between bouts) Surface 1 Level tile Device 1 Wheeled walker Assistance 1 Contact Guard Assist Gait: Requires assist with 1 Maintaining balance Gait Deviations 1 Base of support - decreased;Tanya - decreased;Posture - flexed;Shuffling;Step length - decreased;Weight bearing through UE???s - increased Ambulation Comments 1 10m Walk Test: 20.46s = 0.49m/s. Patient utilized a wheeled walker during test. Stairs Stairs No Stair Comments Stairs not assessed as patient reports not having stairs in her home environment shehas to do (she has a stair lift). Basic Mobility - 6 Click How much difficulty does the patient have: Turning over in bed 3 How much difficulty does the patient currently have: Sitting down and standing up from a chair witharms? 3 How much difficulty does the patient have: Moving from lying on back to sitting on the side of the bed? 3 How much difficulty does the patient have: Moving to and from a bed to a chair including wheelchair? 3 How much help does the patient currently need: Walk in hospital room? 3 How much help from another person does the patient currently need: Climbing 3-5 steps with a railing? 2 Total 6 Click Score (range 6-24) 17 Safe Environment End of Therapy Session Safe Environment End of Therapy Session Patient left supine in bed;Call light within reach;Overbed table within reach;Bed in lowest position with wheels locked;Bed rails up per protocol Assessment Prognosis Good Problem List Gait deviations;Decreased strength;Decreased endurance;Impaired balance;Decreased mobility;Orthopedic restrictions;Pain Problem List Comments Physical Therapy Diagnosis: Patient admitted for pseudoarthritis and adjacentsegment disease post [id number] posterior fusion and decompression (12/02/2023) complicated by post-op tachycardia and hypotension presents with the above listed impairments which prevent full participation in home and community mobility. Barriers to Discharge Current Mobility Status Plan Plan Continue with current plan;If this is the last note, consider this the discharge summary Recommendation/Plan PT Recommendation/Plan Inpatient Rehab Facility Patient at high risk for Falls;Readmission;Injury due to reduced functional status;Injury due to balance deficits;Injury at home as patient has not returned to prior level of function;Developing impaired skin integrity Recommend Inpatient Rehab/Acute Rehab due to Ability to actively participate in intensive therapy 3hours/day, 5 days/week or 900 minutes per week;Highly motivated to participate in therapy;Impaired ability to complete functional mobility;Likely to return to the community at discharge with support system in place;Requires greater than 25% physical assistance with most mobility tasks;Requires multiple therapy disciplines to address functional deficits PT Frequency during current admission 5-7x/wk Treatment/Interventions during current admission Balance Training;Bed mobility;Compensatory technique education;Endurance training;Equipment eval/education;Functional activity;Functional transfer training;Gait training;Neuromuscular re-education;Parent/caregiver training and education;Stair training;Strengthening;Therapeutic activity;Therapeutic exercise;Transfer training PT Equipment Recommended Other (Comment) (to be determined at the next level of care) Progress during current admission Progressing toward goals PT - Next Appointment 12/14/23 Multi-Disciplinary Problems (from Physical Therapy) Active Problems Problem: Mobility Start Date: 12/08/23 Goal Start Date Expected End Date End Date LTG - Patient will ambulate community distance 12/08/23 03/21/24 -- Goal Details: 400' with use of cane, modified independently Goal Start Date Expected End Date End Date STG - Patient will ambulate 12/08/23 12/15/23 -- Goal Details: 150' with wheeled walker, modified independent Problem: Transfers Start Date: 12/08/23 Goal Start Date Expected End Date End Date STG - Patient to transfer to and from sit to supine 12/08/23 12/15/23 -- Goal Details: Supine <> side lying <> sit: supervision Goal Start Date Expected End Date End Date STG - Patient will transfer sit to and from stand 12/08/23 12/15/23 -- Goal Details: With wheeled walker, modified independent Problem: Orthotic Start Date: 12/08/23 Goal Start Date Expected End Date End Date STG - Patient and/or caregiver will don/doff orthotic with the following level of assist: 12/08/23 12/15/23 -- Goal Details: Caregiver to don/doff TLSO with less than 2 verbal cues * Ivelisse Olivares MD - 12/13/2023 7:20 AM CDT Orthopaedic Spine Service Daily Progress Note Admit Date: 12/02/2023 Hospital Day: 11 Michelle Dx: Pseudoarthrosis PMH: HTN, HLD, CAD, CHF, RBBB, A-fib with dual lead ICD, chronic pain, PALA with cochlear implant Proc: 12/01 Revision PSF [id number], decompression Exam: Normal motor exam. SILT. : 1945 Admit: 12/02/2023 Interval History: AFVSS. NAEON. No new labs. Pain controlled, resting comfortably eating breakfast. Exam: Dressing clean/dry/intact. 5/5 BUE/BLE, SILT all dermatomes. Plan: Discharge to SNF pending SNF acceptance - referrals sent Thursday. Continue Lovenox for DVT ppx - no oral anticoagulants until POD #30. Edited by: Ivelisse Olivares MD at 12/13/2023 0439 Objective Vitals: 24hr Min/Max: Temp Min: 36.3 ??C (97.3 ??F) Max: 37.4 ??C (99.4 ??F) Pulse Min: 59 Max: 120 BP Min: 103/64 Max: 134/57 Resp Min: 16 Max: 18 SpO2 Min: 90 % Max: 100 % I/O last 2 completed shifts: In: 600 [P.O.:600] Out: 1150 [Urine:1150] No intake/output data recorded. Physical Exam: Gen: no acute distress Neuro: A&Ox3 Dressing: clean/dry/intact Motor: Muscle Strength Right Left Shoulder abduction (C5) 5/5 5/5 Elbow flexion (C5/6) 5/5 5/5 Elbow extension (C7) 5/5 5/5 Wrist extension (C6) 5/5 5/5 Wrist flexion (C7) 5/5 5/5 Leave Manager (C8) 5/5 5/5 Interosseous of hand (T1) [...] WWP Lab/Diagnostic Review: Recent Labs Lab Units 12/07/232032 SODIUM mmol/L 136 POTASSIUM PLASMA mmol/L 4.2 CHLORIDE mmol/L 102 CO2 mmol/L 27 ANIONGAP mmol/L 7 GLUCOSE mg/dL 98 BUN SERUM mg/dL 7 CREATININE mg/dL 0.63 CALCIUM mg/dL 8.2* WBC K/cumm 8.9 HEMOGLOBIN g/dL 9.1* HEMATOCRIT % 26.9* PLATELETS K/cumm 272 Micro: Lab Results Component Value Date MICROBIOLOGY Amended Report - Complete: Negative 12/06/2023 MICROBIOLOGY Final Report: Rare Staphylococcus epidermidis (.) 12/02/2023 [x] Cardiology recs: restart metoprolol and Lasix 40mg BID, continue amiodarone, hold diltiazem Dispo: Insurance denied rehab, awaiting SNF placement 12/07: Bedoya removed, voiding. Rehab referrals sent. 12/11: Awaiting SNF placement Consults: Cardiology Meds: Multimodal pain Results: N/A Drains / bedoya: AUDREY drain discontinued / Bedoya removed ASA / PLX / Anticoag: SCDs, Lovenox starting POD #2 Incision / Brace: monocryl, dermabond, tegaderm / custom TLSO brace Dispo / FU: Scheduled for 12/[address] Miguel Angel HANEY for wound check, 01/[address] Michelle Edited by: Ivy Swift MD at 12/12/2023 1101 Please call with questions during daytime. See below for overnight issues. If you know the resident's name on the appropriate orthopaedic surgery team, please use [email or web address] to page resident directly. If questions arise and the appropriate resident can't be reached or you are calling overnight, please contact [phone] ([facility] 7:30 PM - 6:30 AM - Floor Resident) or [phone] (24 hours/day - Consult Resident) Cosigned by Rg Sultana MD at 12/13/2023 8:01 AM CDT * Ivy Swift MD - 12/12/2023 6:17 AM CDT Orthopaedic Spine Service Daily Progress Note Admit Date: 12/02/2023 Hospital Day: Dx: Pseudoarthrosis PMH: HTN, HLD, CAD, CHF, RBBB, A-fib with dual lead ICD, chronic pain, PALA with cochlear implant Proc: 12/01 Revision PSF [id number], decompression Exam: Normal motor exam. SILT. : 1945 Admit: 12/02/2023 Interval History: AFVSS. NAEON. No new labs. Pain controlled, resting comfortably eating breakfast. Exam: Dressing clean/dry/intact. 5/5 BUE/BLE, SILT all dermatomes. Plan: Discharge to SNF pending insurance approval/bed availability. Continue Lovenox for DVT ppx - no oral anticoagulants until POD #30. Objective Vitals: 24hr Min/Max: Temp Min: 36.3 ??C (97.3 ??F) Max: 36.8 ??C (98.2 ??F) Pulse Min: 57 Max: 120 BP Min: 97/50 Max: 120/49 Resp Min: 16 Max: 18 SpO2 Min: 90 % Max: 96 % I/O last 2 completed shifts: In: 200 [P.O.:200] Out: 400 [Urine:400] No intake/output data recorded. Physical Exam: Gen: no acute distress Neuro: A&Ox3 Dressing: clean/dry/intact Motor: Muscle Strength Right Left Shoulder abduction (C5) 5/5 5/5 Elbow flexion (C5/6) 5/5 5/5 Elbow extension (C7) 5/5 5/5 Wrist extension (C6) 5/5 5/5 Wrist flexion (C7) 5/5 5/5 Leave Manager (C8) 5/5 5/5 Interosseous of hand (T1) [...] WWP Lab/Diagnostic Review: Recent Labs Lab Units 12/07/232032 SODIUM mmol/L 136 POTASSIUM PLASMA mmol/L 4.2 CHLORIDE mmol/L 102 CO2 mmol/L 27 ANIONGAP mmol/L 7 GLUCOSE mg/dL 98 BUN SERUM mg/dL 7 CREATININE mg/dL 0.63 CALCIUM mg/dL 8.2* WBC K/cumm 8.9 HEMOGLOBIN g/dL 9.1* HEMATOCRIT % 26.9* PLATELETS K/cumm 272 Micro: Lab Results Component Value Date MICROBIOLOGY Amended Report - Complete: Negative 12/06/2023 MICROBIOLOGY Final Report: Rare Staphylococcus epidermidis (.) 12/02/2023 [x] Cardiology recs: restart metoprolol and Lasix 40mg BID, continue amiodarone, hold diltiazem Dispo: Insurance denied rehab, awaiting SNF placement 12/07: Bedoya removed, voiding. Rehab referrals sent. 12/11: Awaiting SNF placement Consults: Cardiology Meds: Multimodal pain Results: N/A Drains / bedoya: AUDREY drain discontinued / Bedoya removed ASA / PLX / Anticoag: SCDs, Lovenox starting POD #2 Incision / Brace: monocryl, dermabond, tegaderm / custom TLSO brace Dispo / FU: Scheduled for 12/[address] Michelle RN for wound check, 01/04 at [address] Miguel Angel Swift MD Department of Orthopaedic Surgery, PGY-5 [facility] Please call with questions during daytime. See below for overnight issues. If you know the resident's name on the appropriate orthopaedic surgery team, please use [email or web address] to page resident directly. If questions arise and the appropriate resident can't be reached or you are calling overnight, please contact [phone] ([facility] 7:30 PM - 6:30 AM - Floor Resident) or [phone] (24 hours/day - Consult Resident) Cosigned by Rg Sultana MD at 12/12/2023 11:24 AM CDT * Amy Jean, PT - 12/11/2023 4:30 PM CDT Physical Therapy Physical Therapy Progress Note NOTE: This is a summary note of the khanna components of the treatment session. For full details, review chart for all flowsheets documented on by this physical therapy clinician on this date. Vital signs documented in vital signs flowsheet. Care plan progress documented in Care Plan Activity. For questions, please review the treatment team and contact the PT or CHIPPER currently assigned to this patient. If a physical therapy clinician is not assigned to this patient, please call [phone]. 12/11/23 1630 PT Last Visit Session Type Treatment PT Received On 12/11/23 Safe Environment Arm band checked;Patient found sitting in chair;Session completed bedside;Gait belt not utilized, see comment (sitting in chair without TLSO on upon arrival into room) Subjective Agreeable to Therapy Subjective Comment States she is getting bored, not much to do, does not know if she if going to rehab or SNF; states her brace pinches her that is why she is taking her brace off on her own. Family/Caregiver Present No Current Functional Status PT Functional Mobility Interventions: pt educated in precautions and mobility within precautions Precautions Precautions Fall risk;Spinal/Back Weight Bearing Restrictions No Braces/Orthoses (TLSO on whenever OOB (2 piece clam shell TLSO)) Precaution Handout Issued No Activity Tolerance Endurance Tolerates 10 - 20 min activity with multiple rests Pain Assessment Pain Assessment 0-10 Pain Score 4 Pain Interventions Repositioned;Ambulation;Elevated;RN Notified (RN--Collette) Cognition Arousal/Alertness Alert;Appropriate responses to stimuli Attention Span Appears intact;Age appropriate Memory Appears intact Current communication Appears Intact Orientation Oriented to person Following Commands Follows all commands and directions without difficulty Safety Judgment Good awareness of safety precautions Awareness of Errors Good awareness of errors made Insight Fully aware of deficits Problem Solving Able to problem solve independently Compliance/Behavior Easy to engage Perseveration Not present Equipment Use Equipment Use Comments no gait belt used--used inferior edge of TLSO in lieu of gait belt Bed Mobility Bed Mobility Yes Bed Mobility 1 Bed Mobility From 1 Edge of bed;Short sit Bed Mobility Type 1 To Bed Mobility to 1 Side lying-right;Supine (via log roll, bed flat) Level of Assistance 1 Moderate Assist;Minimal verbal cues;Minimal tactile cues Bed Mobility Comments 1 cues to perform components of task Bed Mobility 2 Bed Mobility From 2 Supine Bed Mobility Type 2 To and from (via log rolling, bed flat) Bed Mobility to 2 Side lying-right;Side lying-left Level of Assistance 2 Contact Guard Assist Bed Mobility Comments 2 so TLSO could be donned prior to ambulation Bed Mobility 3 Bed Mobility From 3 Supine;Side lying-right (via log rolling, bed flat, with side rail) Bed Mobility Type 3 To Bed Mobility to 3 Edge of bed;Short sit Level of Assistance 3 Minimum Assist;Minimal verbal cues;Minimal tactile cues Bed Mobility Comments 3 cues to perform components of task Transfers Transfer Yes Transfer 1 Transfer From 1 Sit Transfer Type 1 To and from Transfer to 1 Stand Technique 1 Sit to stand;Stand to sit Transfer Device 1 Wheeled walker Transfer Level of Assistance 1 Contact Guard Assist Trials/Comments 1 cues to perform components of task Ambulation Functional Ambulation Category 3 Ambulation Yes Ambulation 1 Distance (ft) 1 160 (2 standing rest breaks) Surface 1 Level tile Device 1 Wheeled walker Assistance 1 Contact Guard Assist Gait: Requires assist with 1 Maintaining balance Gait: Requires verbal cues to 1 Use assistive device safely;Prevent bumping into environmental barriers (juarez/furniture);Utilize appropriate gait sequencing;Improve upright posture;Pace activity Gait Deviations 1 Base of support - decreased;Tanya - decreased;Heel strike - decreased;Stance time - decreased;Step length - decreased;Weight bearing through UE???s - increased Quality of Gait 1 very slow, decreased step length, reciprocal gait Stairs Stairs No Basic Mobility - 6 Click How much difficulty does the patient have: Turning over in bed 3 How much difficulty does the patient currently have: Sitting down and standing up from a chair witharms? 3 How much difficulty does the patient have: Moving from lying on back to sitting on the side of the bed? 3 How much difficulty does the patient have: Moving to and from a bed to a chair including wheelchair? 3 How much help does the patient currently need: Walk in hospital room? 3 How much help from another person does the patient currently need: Climbing 3-5 steps with a railing? 2 Total 6 Click Score (range 6-24) 17 Score Interpretation 39.67 Safe Environment End of Therapy Session Safe Environment End of Therapy Session Patient left in chair;Patient left in recliner;Chair alarm in place and activated;RN notified;Call light within reach;Overbed table within reach;Bed in lowest position with wheels locked;Bed rails up per protocol (TLSO on patient upon departure from room) Assessment Prognosis Good Problem List Gait deviations;Decreased strength;Decreased endurance;Impaired balance;Decreased mobility;Obesity;Decreased skin integrity;Orthopedic restrictions;Pain;Postural deficit;Edema Barriers to Discharge Home environment challenged;Inaccessible home environment;Current Mobility Status;Decreased caregiver support Plan Plan Continue with current plan;If this is the last note, consider this the discharge summary Recommendation/Plan PT Recommendation/Plan Inpatient Rehab Facility Patient at high risk for Falls;Readmission;Injury due to reduced functional status;Injury due to balance deficits;Prolonged dependence for self care tasks;Difficulty maintaining orthopedic restrictions;Unable to don/doff bracing Recommend Inpatient Rehab/Acute Rehab due to Not at baseline due to impaired ability to complete ADLs;Ability to actively participate in intensive therapy 3 hours/day, 5 days/week or 900 minutes per week;Impaired ability to complete functional mobility;Likely to return to the community at dischargewith support system in place;Requires greater than 25% physical assistance with most mobility tasks;Requires multiple therapy disciplines to address functional deficits;Patient and caregiver require specialized skilled training due to new level of function/diagnosis;Requires skilled therapy interventions to address neurological deficits PT Frequency during current admission 5-7x/wk Treatment/Interventions during current admission Balance Training;Bed mobility;Compensatory technique education;Endurance training;Functional activity;Functional transfer training;Gait training;Parent/caregiver training and education;Orthotic management;Positioning;Therapeutic activity;Transfer slime hoangg PT Equipment Recommended Wheeled walker Progress during current admission Progressing toward goals PT - Next Appointment 12/13/23 PT - OK to Discharge No PT Evaluation Complete Yes Multi-Disciplinary Problems (from Physical Therapy) Active Problems Problem: Mobility Start Date: 12/08/23 Goal Start Date Expected End Date End Date LTG - Patient will ambulate community distance 12/08/23 03/21/24 -- Goal Details: 400' with use of cane, modified independently Goal Start Date Expected End Date End Date STG - Patient will ambulate 12/08/23 12/15/23 -- Goal Details: 150' with wheeled walker, modified independent Problem: Transfers Start Date: 12/08/23 Goal Start Date Expected End Date End Date STG - Patient to transfer to and from sit to supine 12/08/23 12/15/23 -- Goal Details: Supine <> side lying <> sit: supervision Goal Start Date Expected End Date End Date STG - Patient will transfer sit to and from stand 12/08/23 12/15/23 -- Goal Details: With wheeled walker, modified independent Problem: Orthotic Start Date: 12/08/23 Goal Start Date Expected End Date End Date STG - Patient and/or caregiver will don/doff orthotic with the following level of assist: 12/08/23 12/15/23 -- Goal Details: Caregiver to don/doff TLSO with less than 2 verbal cues * Ivelisse Olivares MD - 12/11/2023 6:16 AM CDT Orthopaedic Spine Service Daily Progress Note Admit Date: 12/02/2023 Hospital Day: 9 Dx: Pseudoarthrosis PMH: HTN, HLD, CAD, CHF, RBBB, A-fib with dual lead ICD, chronic pain, PALA with cochlear implant Proc: 12/01 Revision PSF [id number], decompression Exam: Normal motor exam. SILT. : 1945 Admit: 12/02/2023 Interval History: 12/10: [id number]. AFVSS. No new labs. Exam: Resting in bed. 5/5 BUE/BLE, SILT all dermatomes, dressing c/d/I. PT/OT dispo to [facility] today pending insurance auth. Continue lovenox for DVT ppx - no oral anticoagulants until POD30. Edited by: Ivelisse Olivares MD at 12/11/2023 0502 Objective Vitals: 24hr Min/Max: Temp Min: 36.6 ??C (97.9 ??F) Max: 36.8 ??C (98.2 ??F) Pulse Min: 58 Max: 113 BP Min: 96/56 Max: 117/55 Resp Min: 16 Max: 17 SpO2 Min: 90 % Max: 95 % No intake/output data recorded. I/O this shift: In: - Out: 275 [Urine:275] Physical Exam: Gen: no acute distress Neuro: A&Ox3 Dressing: clean/dry/intact Wound Vac(s): Not applicable Hemo Vac(s): Not applicable Motor: Muscle Strength Right Left Shoulder abduction (C5) 5/5 5/5 Elbow flexion (C5/6) 5/5 5/5 Elbow extension (C7) 5/5 5/5 Wrist extension (C6) 5/5 5/5 Wrist flexion (C7) 5/5 5/5 Leave Manager (C8) 5/5 5/5 Interosseous of hand (T1) [...] lower extremity: SILT L2 to S1 dermatomes. Lab/Diagnostic Review: Recent Labs Lab Units [id number] SODIUM mmol/L 136 < > 136 POTASSIUM PLASMA mmol/L 4.2 < > 3.6 CHLORIDE mmol/L 102 < > 104 CO2 mmol/L 27 < > 26 ANIONGAP mmol/L 7 < > 6 GLUCOSE mg/dL 98 < > 146 BUN SERUM mg/dL 7 < > 7 CREATININE mg/dL 0.63 < > 0.54* CALCIUM mg/dL 8.2* < > 7.8* ALBUMIN g/dL -- -- 2.8* ALK PHOS Units/L -- -- 84 ALT Units/L -- -- 76* AST Units/L -- -- 132* BILIRUBIN TOTAL mg/dL -- -- 0.3 WBC K/cumm 8.9 < > 11.1* HEMOGLOBIN g/dL 9.1* < > 8.7* HEMATOCRIT % 26.9* < > 25.8* PLATELETS K/cumm 272 < > 148* < > = values in this interval not displayed. Micro: Lab Results Component Value Date MICROBIOLOGY Amended Report - Complete: Negative 12/06/2023 MICROBIOLOGY Final Report: Rare Staphylococcus epidermidis (.) 12/02/2023 [X] Cards said we could restart metop and Lasix 40mg BID- done [X] stopped dilaudid so she can go to rehab [ ] dispo- waiting on auth plan 12/09 vs 12/10 - continu amio and metop Hold dilt 12/07 Bedoya removed, voiding. Rehab referrals sent Consults: SICU, Cardiology Meds: Multimodal pain Results: N/A Drains / bedoya: AUDREY drain d/cd / D/c bedoya today ASA / PLX / Anticoag: SCDs. Lvx POD2 Incision / Brace: monocryl, dermabond, tegaderm /custom TLSO brace Dispo / FU: Scheduled for 12/22 at 12p with Miguel Angel RN for wound check, 01/04 at 740a with Miguel Angel Edited by: Dalia Muhammad, FIELD SERVICE REP at 12/10/2023 5710 Please call with questions during daytime. See below for overnight issues. If you know the resident's name on the appropriate orthopaedic surgery team, please use [email or web address] to page resident directly. If questions arise and the appropriate resident can't be reached or you are calling overnight, please contact [phone] (North- 7:30 PM - 6:30 AM - Floor Resident) or [phone] (24 hours/day - Consult Resident) Cosigned by Rg Sultana MD at 12/11/2023 7:56 AM CDT * Jeremy Michelle MD - 12/10/2023 4:51 PM CDT Called to check in on patient / discuss progress. Continues to do well -- remains intact / ambulating with PT. Dispo was an issue -- now with discussions of insurance and plans for either inpatient versus home with home health. Patient in good spirits and relatively pain free. All questions answered. Imaging /labs have been reviewed. Anticipate discharge in the future. Jeremy Michelle MD PhD Attending Spine Surgeon Supervisor [employer] [facility] Orthopaedic and Neurological Surgery [facility] * Maikel Gordon OT - 12/10/2023 9:59 AM CDT Occupational Therapy Occupational Therapy Progress Note NOTE: This is a summary note of the khanna components of the treatment session. For full details, review chart for all flowsheets documented on by this occupational therapy clinician on this date. Vitalsigns documented in vital signs flowsheet. Care plan progress documented in Care Plan Activity. For questions, please review the treatment team and contact the occupational therapist currently assigned to this patient. If an occupational therapist is not assigned to this patient, please call [phone]. 12/10/23 0959 General Session Type Treatment OT Received On 12/10/23 Safe Environment Arm band checked;Gait belt not utilized, see comment;Patient found sitting in chair (2/2 Spinal incision. Pt TLSO off upon therapist entering room) Subjective Agreeable to Therapy Family/Caregiver Present No Precautions Precautions Fall risk;Spinal/Back Braces/Orthoses TLSO (Donned prior to mobility.) Precaution Handout Issued No Precaution Comments Verbally reviewed precautions prior to mobility. Pt demonstrated and verbalizedunderstanding. Pain Assessment Pain Assessment 0-10 Pain Score 3 Pain Location Back (Lumbar) Pain Interventions Repositioned Balance Balance Yes Dynamic Sitting Balance Dynamic Sitting-Balance Support No upper extremity supported Dynamic Sitting-Balance Lateral lean;Forward lean;Reaching for objects;Reaching across midline Dynamic Sitting-Sitting Surface Bed Dynamic Sitting-Level of Assistance Distant supervision Dynamic Sitting-Comments Sup for safety Dynamic Standing Balance Dynamic Standing-Balance Support Unilateral upper extremity supported Dynamic Standing-Balance Lateral lean;Forward lean;Reaching for objects;Reaching across midline Dynamic Standing-Standing Surface Floor Dynamic Standing-Level of Assistance Minimum assistance Dynamic Standing-Comments Min A for balance and safety ADL ADLS (WDL) X Grooming Grooming: Where assessed Standing at sink Grooming: Level of assistance Minimum Assist Grooming: Assistance with Safety;Balance (Set up for task, Min for balance) LE Dressing LE Dressing: Where assessed Standing;Sitting LE Dressing: Level of assistance Minimum Assist LE Dressing: Assistance with Don/doff R sock;Don/doff L sock;Pull up over hips (Min for task) Room Mobility Room Mobility: Where assessed To/from bathroom in Pt's room Health Management: Equipment Walker Room Mobility: Level of Assistance Minimum Assist Room Mobility comment Min A for balance and safety Bed Mobility Bed Mobility No Transfers Transfer Yes Transfer 1 Transfer From 1 Sit Transfer Type 1 To and from Transfer to 1 Stand Technique 1 Sit to stand;Stand to sit Transfer Device 1 Wheeled walker Transfer Level of Assistance 1 Minimum Assist Trials/Comments 1 Min A for balance, force production, and safety Toilet Transfers Toilet Transfer From Chair with arms Toilet Transfer Type To and from Toilet Transfer to Standard toilet Toilet Transfer Technique Ambulating Toilet Transfer: Equipment Wheeled walker Toilet Transfers Minimal assistance Toilet Transfers Comments Min A for force production and balance. Cognition Arousal/Alertness Alert;Appropriate responses to stimuli Attention Span Appears intact Memory Appears intact Current communication Appears Intact Orientation Oriented X4 (person, place, time, situation) Following Commands Follows all commands and directions without difficulty Safety Judgment Good awareness of safety precautions Awareness of Errors Good awareness of errors made Insight Fully aware of deficits Problem Solving Able to problem solve independently Compliance/Behavior Easy to engage Perseveration Not present Other Comments Comments Pt seen this date for treatment session focusing on functional transfers and dressing tasks in preparation for completion of self care tasks. Pt required Min A to complete ADLs with AE. Pt would benefit from continued skilled therapy services to improve ADL ind, balance and safety. Daily Activity - 6 Clicks Putting on and taking off regular lower body clothing 3 Bathing 3 Toileting 3 Putting on and taking off upper body clothing 3 Personal Grooming 3 Eating Meals 3 Total Score (range 6-24) 18 Score Interpretation 38.66 Safe Environment End of Therapy Session Safe Environment End of Therapy Session Patient left in chair;Chair alarm in place and activated;RNnotified;Overbed table within reach;Call light within reach (w/ TLSO donned) Assessment Problem List Decreased endurance;Decreased balance;Decreased ADL independence;Decreased gross motorcontrol;Decreased functional mobility;Decreased fine motor control;Decreased IADL independence Barriers to Discharge Current Mobility Status;Current ADL Status Barrier Comments Fall risk Plan Plan Continue with current plan;If this is the last note, consider this the discharge summary Recommendation/Plan OT Recommendation Inpatient Rehab Facility Patient at high risk for Falls;Readmission;Injury due to reduced functional status;Injury due to decreased ability to care for self;Injury due to balance deficits Recommend Inpatient Rehab/Acute Rehab due to Ability to actively participate in intensive therapy 3hours/day, 5 days/week or 900 minutes per week;Not at baseline due to impaired ability to complete ADLs;Impaired ability to complete functional mobility;Likely to return to the community at dischargewith support system in place OT Frequency during current admission 5-7x/wk Treatment/Interventions during current admission Balance Training;Bed mobility;ADL/IADL retraining;Endurance training;Functional activity;Functional transfer training;Functional mobility training Progress during current admission Progressing toward goals OT - Next Appointment 12/11/23 OT - OK to Discharge No Multi-Disciplinary Problems (from Occupational Therapy) Active Problems Problem: Dressings Lower Extremities Start Date: 12/07/23 Problem: Grooming Start Date: 12/07/23 Goal Start Date Expected End Date End Date STG - Patient will complete grooming 12/07/23 12/14/23 -- Goal Details: With SPV standing at the sink Problem: Toileting Start Date: 12/07/23 Goal Start Date Expected End Date End Date STG - Patient will complete toileting tasks with 12/07/23 12/14/23 -- Goal Details: SPV Problem: Transfers Start Date: 12/07/23 Goal Start Date Expected End Date End Date STG - Patient will perform toilet transfer 12/07/23 12/14/23 -- Goal Details: With SPV to standard toilet * Amy Jean, PT - 12/10/2023 8:35 AM CDT Physical Therapy Physical Therapy Progress Note NOTE: This is a summary note of the khanna components of the treatment session. For full details, review chart for all flowsheets documented on by this physical therapy clinician on this date. Vital signs documented in vital signs flowsheet. Care plan progress documented in Care Plan Activity. For questions, please review the treatment team and contact the PT or CHIPPER currently assigned to this patient. If a physical therapy clinician is not assigned to this patient, please call [phone]. 12/10/23 0835 PT Last Visit Session Type Treatment PT Received On 12/10/23 Safe Environment Arm band checked;Patient found sitting in chair;Session completed bedside;Gait belt not utilized, see comment (utilized inferior edge of TLSO in lieu of gait belt; patient was sitting in chair without having TLSO on.) Subjective Agreeable to Therapy Subjective Comment feels better this am. state she cannot walk too far Family/Caregiver Present Yes Current Functional Status PT Functional Mobility Interventions: pt educated in precautions and mobility within precautions Precautions Precautions Fall risk;Spinal/Back Weight Bearing Restrictions No Braces/Orthoses (TLSO donned prior to mobility and was on patient when PT left the room.) Precaution Handout Issued No Activity Tolerance Endurance Tolerates 30 min activity with multiple rests Pain Assessment Pain Assessment 0-10 Pain Score 5 - Moderate pain Pain Type Surgical pain Pain Location Back (Lumbar) Pain Interventions Repositioned;Elevated;RN Notified (RN- Levit) Cognition Arousal/Alertness Alert;Appropriate responses to stimuli Attention Span Appears intact;Age appropriate Memory Appears intact Current communication Appears Intact Orientation Oriented X4 (person, place, time, situation) Following Commands Follows all commands and directions without difficulty Safety Judgment Good awareness of safety precautions Awareness of Errors Good awareness of errors made Insight Fully aware of deficits Problem Solving Able to problem solve independently Compliance/Behavior Easy to engage Perseveration Not present Equipment Use Equipment Use Comments inferior edge of TLSO used in lieu of gait belt Bed Mobility Bed Mobility Yes Bed Mobility 1 Bed Mobility From 1 Edge of bed;Short sit Bed Mobility Type 1 To Bed Mobility to 1 Side lying-right;Supine (via log rolling, no rail, bed flat) Level of Assistance 1 Moderate Assist;Moderate verbal cues;Moderate tactile cues Bed Mobility Comments 1 cues to perform components of task, assistance to control descent/position of torso to bed surface and bring LEs onto bed surface Bed Mobility 2 Bed Mobility From 2 Supine;Side lying-right (via log rolling, bed flat, with side rail) Bed Mobility Type 2 To Bed Mobility to 2 Short sit;Edge of Bed (with side rail, bed flat, after logrolled to R side) Level of Assistance 2 Minimum Assist;Minimal verbal cues;Minimal tactile cues Bed Mobility Comments 2 cues to perform components of task, assistance to get torso to vertical Bed Mobility 3 Bed Mobility From 3 Supine;Side lying-left;Side lying-right (via log rolling, with side rails) Bed Mobility Type 3 To and from Bed Mobility to 3 Side lying-left;Side lying-right Level of Assistance 3 Contact Guard Assist Bed Mobility Comments 3 cues to perform task; performed to don sharmila shell TLSO prior to mobility tasks Transfers Transfer Yes Transfer 1 Transfer From 1 Sit Transfer Type 1 To and from Transfer to 1 Stand Technique 1 Sit to stand;Stand to sit Transfer Device 1 Wheeled walker Transfer Level of Assistance 1 Minimum Assist;Minimal verbal cues;Minimal tactile cues Trials/Comments 1 cues to perform components of task, inadequate force production; lack of eccentric control to sit Ambulation Functional Ambulation Category 2 Ambulation Yes Ambulation 1 Distance (ft) 1 200 (50 + 50 + 25 + 20 + 15 +15 + 15 +15); 8 standing rest breaks Surface 1 Level tile Device 1 Wheeled walker Assistance 1 Minimum Assist;Minimal verbal cues;Minimal tactile cues Gait: Requires assist with 1 Maintaining balance Gait: Requires verbal cues to 1 Use assistive device safely;Follow precautions/weight bearing status;Utilize appropriate gait sequencing;Improve upright posture;Pace activity Gait Deviations 1 Base of support - decreased;Tanya - decreased;Heel strike - decreased;Posture -flexed;Stance time - decreased;Step length - decreased;Weight bearing through UE???s - increased Quality of Gait 1 cues to correct forward leaning while ambulating, to keep hips in between her hands Stairs Stairs No Basic Mobility - 6 Click How much difficulty does the patient have: Turning over in bed 3 How much difficulty does the patient currently have: Sitting down and standing up from a chair witharms? 3 How much difficulty does the patient have: Moving from lying on back to sitting on the side of the bed? 3 How much difficulty does the patient have: Moving to and from a bed to a chair including wheelchair? 3 How much help does the patient currently need: Walk in hospital room? 3 How much help from another person does the patient currently need: Climbing 3-5 steps with a railing? 1 Total 6 Click Score (range 6-24) 16 Score Interpretation 38.32 Safe Environment End of Therapy Session Safe Environment End of Therapy Session Patient left in chair;Chair alarm in place and activated;RNnotified;Call light within reach;Overbed table within reach;Bed in lowest position with wheels locked;Bed rails up per protocol (TLSO on patient upon exit from room) Assessment Prognosis Good Problem List Gait deviations;Decreased strength;Decreased range of motion;Decreased endurance;Impaired balance;Decreased mobility;Obesity;Decreased skin integrity;Orthopedic restrictions;Pain Barriers to Discharge Current Mobility Status;Inaccessible home environment;Home environment challenged;Decreased caregiver support Plan Plan Continue with current plan;If this is the last note, consider this the discharge summary Recommendation/Plan PT Recommendation/Plan Inpatient Rehab Facility Patient at high risk for Falls;Readmission;Injury due to decreased ability to care for self;Injury due to reduced functional status;Injury due to balance deficits;Prolonged dependence for self care tasks;Difficulty maintaining orthopedic restrictions Recommend Inpatient Rehab/Acute Rehab due to Impaired ability to complete functional mobility;Likely to return to the community at discharge with support system in place;Requires greater than 25% physical assistance with most mobility tasks;Requires multiple therapy disciplines to address functional deficits;Patient and caregiver require specialized skilled training due to new level of function/diagnosis;Requires skilled therapy interventions to address neurological deficits PT Frequency during current admission 5-7x/wk Treatment/Interventions during current admission Balance Training;Bed mobility;Compensatory technique education;Endurance training;Functional activity;Functional transfer training;Gait training;Orthotic management;Parent/caregiver training and education;Positioning;Range of motion;Stair training;Therapeutic activity;Therapeutic exercise;Transfer training PT Equipment Recommended Wheeled walker Progress during current admission Slow progress, decreased activity tolerance PT - Next Appointment 12/11/23 PT - OK to Discharge No (except to another facility) PT Evaluation Complete Yes Multi-Disciplinary Problems (from Physical Therapy) Active Problems Problem: Mobility Start Date: 12/08/23 Goal Start Date Expected End Date End Date LTG - Patient will ambulate community distance 12/08/23 03/21/24 -- Goal Details: 400' with use of cane, modified independently Goal Start Date Expected End Date End Date STG - Patient will ambulate 12/08/23 12/15/23 -- Goal Details: 150' with wheeled walker, modified independent Problem: Transfers Start Date: 12/08/23 Goal Start Date Expected End Date End Date STG - Patient to transfer to and from sit to supine 12/08/23 12/15/23 -- Goal Details: Supine <> side lying <> sit: supervision Goal Start Date Expected End Date End Date STG - Patient will transfer sit to and from stand 12/08/23 12/15/23 -- Goal Details: With wheeled walker, modified independent Problem: Orthotic Start Date: 12/08/23 Goal Start Date Expected End Date End Date STG - Patient and/or caregiver will don/doff orthotic with the following level of assist: 12/08/23 12/15/23 -- Goal Details: Caregiver to don/doff TLSO with less than 2 verbal cues * Ivelisse Olivares MD - 12/10/2023 7:06 AM CDT Orthopaedic Spine Service Daily Progress Note Admit Date: 12/02/2023 Hospital Day: 8 Michelle Dx: Pseudoarthrosis PMH: HTN, HLD, CAD, CHF, RBBB, A-fib with dual lead ICD, chronic pain, PALA with cochlear implant Proc: 12/01 Revision PSF [id number], decompression Exam: Normal motor exam. SILT. : 1945 Admit: 12/02/2023 Interval History: 12/09: POD8. AFVSS. No new labs. Exam: Resting in bed. 5/5 BUE/BLE, SILT all dermatomes, dressing c/d/I. PT/OT dispo to [facility] today pending insurance auth. Continue lovenox for DVT ppx - no oral anticoagulants until POD30. Edited by: Ivelisse Olivares MD at 12/10/2023 0653 Objective Vitals: 24hr Min/Max: Temp Min: 36.3 ??C (97.4 ??F) Max: 36.7 ??C (98 ??F) Pulse Min: 58 Max: 73 BP Min: 96/41 Max: 117/44 Resp Min: 16 Max: 17 SpO2 Min: 92 % Max: 100 % I/O last 2 completed shifts: In: - Out: 900 [Urine:900] No intake/output data recorded. Physical Exam: Gen: no acute distress Neuro: A&Ox3 Dressing: clean/dry/intact Wound Vac(s): Not applicable Hemo Vac(s): Not applicable Motor: Muscle Strength Right Left Shoulder abduction (C5) 5/5 5/5 Elbow flexion (C5/6) 5/5 5/5 Elbow extension (C7) 5/5 5/5 Wrist extension (C6) 5/5 5/5 Wrist flexion (C7) 5/5 5/5 Leave Manager (C8) 5/5 5/5 Interosseous of hand (T1) [...] lower extremity: SILT L2 to S1 dermatomes. Reflexes: Symmetric patellar, and biceps reflexes Vascular: Bilateral Upper Extremity: 2+ radial pulse, fingers WWP Bilateral Lower Extremity: 2+ DP pulse, toes WWP Lab/Diagnostic Review: Recent Labs Lab Units 12/07/23203212/05/2355312/04/23212709/24 2246 05/09/24 2107 SODIUM mmol/L 136 < > 136 < > -- POTASSIUM PLASMA mmol/L 4.2 < > 3.6 < > -- CHLORIDE mmol/L 102 < > 104 < > -- CO2 mmol/L 27 < > 26 < > -- ANIONGAP mmol/L 7 < > 6 < > -- GLUCOSE mg/dL 98 < > 146 < > -- POC GLUCOSE MONITOR -- -- -- < > -- BUN SERUM mg/dL 7 < > 7 < > -- CREATININE mg/dL 0.63 < > 0.54* < > -- CALCIUM mg/dL 8.2* < > 7.8* < > -- ALBUMIN g/dL -- -- 2.8* -- -- ALK PHOS Units/L -- -- 84 -- -- ALT Units/L -- -- 76* -- -- AST Units/L -- -- 132* -- -- BILIRUBIN TOTAL mg/dL -- -- 0.3 -- -- WBC K/cumm 8.9 < > 11.1* -- 12.2* HEMOGLOBIN, POC -- -- -- < > -- HEMOGLOBIN g/dL 9.1* < > 8.7* -- 10.2* HEMATOCRIT % 26.9* < > 25.8* -- 29.4* HEMATOCRIT POC -- -- -- < > -- PLATELETS K/cumm 272 < > 148* -- 180 NEUTROS PCT % -- -- -- -- 77.4 LYMPHS PCT % -- -- -- -- 11.2 MONOS PCT % -- -- -- -- 7.3 EOS PCT % -- -- -- -- 3.0 < > = values in this interval not displayed. Micro: Lab Results Component Value Date MICROBIOLOGY Amended Report - Complete: Negative 12/06/2023 MICROBIOLOGY Final Report: Rare Staphylococcus epidermidis (.) 12/02/2023 [X] Cards said we could restart metop and Lasix 40mg BID- done [X] stopped dilaudid so she can go to rehab [ ] dispo- waiting on auth - continu amio and metop Hold dilt 12/07 Bedoya removed, voiding. Rehab referrals sent Consults: SICU, Cardiology Meds: Multimodal pain Results: N/A Drains / bedoya: AUDREY drain d/cd / D/c bedoya today ASA / PLX / Anticoag: SCDs. Lvx POD2 Incision / Brace: monocryl, dermabond, tegaderm /custom TLSO brace Dispo / FU: Scheduled for 12/22 at 12p with Miguel Angel RN for wound check, 01/04 at 740a with Miguel Angel Edited by: Opal Whitney, FIELD SERVICE REP at 12/09/2023 1651 Please call with questions during daytime. See below for overnight issues. If you know the resident's name on the appropriate orthopaedic surgery team, please use [email or web address] to page resident directly. If questions arise and the appropriate resident can't be reached or you are calling overnight, please contact [phone] ([facility] 7:30 PM - 6:30 AM - Floor Resident) or [phone] (24 hours/day - Consult Resident) Cosigned by Rg Sultana MD at 12/10/2023 11:20 AM CDT * Amy Jean, PT - 12/09/2023 2:17 PM CDT Physical Therapy Physical Therapy Progress Note NOTE: This is a summary note of the khanna components of the treatment session. For full details, review chart for all flowsheets documented on by this physical therapy clinician on this date. Vital signs documented in vital signs flowsheet. Care plan progress documented in Care Plan Activity. For questions, please review the treatment team and contact the PT or CHIPPER currently assigned to this patient. If a physical therapy clinician is not assigned to this patient, please call [phone]. 12/09/23 1417 PT Last Visit Session Type Treatment PT Received On 12/09/23 Safe Environment Patient found sitting in chair;Arm band checked;Session completed bedside;Gait belt not utilized, see comment (used inferior edge of TLSO in lieu of gait belt; patient did not have TLSO on in sitting upon entering room.) Subjective Agreeable to Therapy Subjective Comment Patient states she is tired this pm and did not realize how weak she if Family/Caregiver Present Yes (spouse) Current Functional Status PT Functional Mobility Interventions: pt educated in precautions and mobility within precautions Precautions Precautions Fall risk;Spinal/Back Weight Bearing Restrictions No Braces/Orthoses TLSO (TLSO on when OOB) Precaution Handout Issued No Activity Tolerance Endurance Tolerates 30 min activity with multiple rests Pain Assessment Pain Assessment 0-10 Pain Score 5 - Moderate pain Pain Type Surgical pain Pain Location Back (Lumbar) Pain Interventions Repositioned;Elevated;RN Notified (DARION Murdock) Cognition Arousal/Alertness Alert;Appropriate responses to stimuli Attention Span Appears intact;Age appropriate Memory Appears intact Current communication Appears Intact Orientation Oriented X4 (person, place, time, situation) Following Commands Follows all commands and directions without difficulty Safety Judgment Good awareness of safety precautions Awareness of Errors Good awareness of errors made Insight Fully aware of deficits Problem Solving Able to problem solve independently Compliance/Behavior Easy to engage Perseveration Not present Equipment Use Equipment Use Comments inferior edge of TLSO used in lieu of gait belt Bed Mobility Bed Mobility Yes Bed Mobility 1 Bed Mobility From 1 Supine;Side lying-right (via log rolling, bed flat, with rail) Bed Mobility Type 1 To and from Bed Mobility to 1 Edge of bed;Short sit Level of Assistance 1 Moderate Assist;Moderate verbal cues;Moderate tactile cues Bed Mobility Comments 1 cues to perform components of task, inadequate force production, assistanceto get LEs on/off bed surface, to elevated torso and to control position of torso to bed surface Bed Mobility 2 Bed Mobility From 2 Supine;Side lying-right;Side lying-left Bed Mobility Type 2 To and from Bed Mobility to 2 Side lying-left;Side lying-right Level of Assistance 2 Minimum Assist;Minimal verbal cues;Minimal tactile cues Bed Mobility Comments 2 cues to perform components to don/doff TLSO Transfers Transfer Yes Transfer 1 Transfer From 1 Sit Transfer Type 1 To and from Transfer to 1 Stand Technique 1 Sit to stand;Stand to sit Transfer Device 1 Wheeled walker Transfer Level of Assistance 1 Minimum Assist;Minimal verbal cues;Minimal tactile cues Trials/Comments 1 cues to perform components of task, inadequate force production in anti-gravity mm, lack of eccentric control to sit Ambulation Functional Ambulation Category 2 Ambulation Yes Ambulation 1 Distance (ft) 1 50 +15 Surface 1 Level tile Device 1 Wheeled walker Assistance 1 Minimum Assist;Minimal verbal cues;Minimal tactile cues Gait: Requires assist with 1 Maintaining balance Gait: Requires verbal cues to 1 Use assistive device safely;Prevent bumping into environmental barriers (juarez/furniture);Utilize appropriate gait sequencing;Improve upright posture;Pace activity Gait Deviations 1 Base of support - decreased;Tanya - decreased;Heel strike - decreased;Hip/knee flexion during swing phase - decreased;Posture - flexed;Stance time - decreased;Step length - decreased;Weight bearing through UE???s - increased Quality of Gait 1 cues to correct postural deficits Stairs Stairs No Other Comments Other PT Comments worked on strengthening exercises/tasks to increase strength in his LEs; did 4 sit <> stands with very light use of UEs Basic Mobility - 6 Click How much difficulty does the patient have: Turning over in bed 3 How much difficulty does the patient currently have: Sitting down and standing up from a chair witharms? 3 How much difficulty does the patient have: Moving from lying on back to sitting on the side of the bed? 2 How much difficulty does the patient have: Moving to and from a bed to a chair including wheelchair? 2 How much help does the patient currently need: Walk in hospital room? 3 How much help from another person does the patient currently need: Climbing 3-5 steps with a railing? 1 Total 6 Click Score (range 6-24) 14 Score Interpretation 35.55 Safe Environment End of Therapy Session Safe Environment End of Therapy Session Patient left in chair;RN notified;Call light within reach;Overbed table within reach;Bed in lowest position with wheels locked;Bed rails up per protocol (with TLSO on,) Assessment Prognosis Good Problem List Gait deviations;Decreased strength;Decreased range of motion;Decreased endurance;Impaired balance;Decreased mobility;Obesity;Decreased skin integrity;Orthopedic restrictions;Pain;Postural deficit Barriers to Discharge Current Mobility Status;Inaccessible home environment;Home environment challenged;Decreased caregiver support Plan Plan Continue with current plan;If this is the last note, consider this the discharge summary Recommendation/Plan PT Recommendation/Plan Inpatient Rehab Facility Patient at high risk for Falls;Readmission;Injury due to reduced functional status;Injury due to balance deficits;Prolonged dependence for self care tasks;Difficulty maintaining orthopedic restrictions;Unable to don/doff bracing Recommend Inpatient Rehab/Acute Rehab due to Not at baseline due to impaired ability to complete ADLs;Impaired ability to complete functional mobility;Likely to return to the community at discharge with support system in place;Requires greater than 25% physical assistance with most mobility tasks;Requires multiple therapy disciplines to address functional deficits;Patient and caregiver require specialized skilled training due to new level of function/diagnosis;Requires skilled therapy interventions to address neurological deficits PT Frequency during current admission 5-7x/wk Treatment/Interventions during current admission Balance Training;Bed mobility;Compensatory technique education;Endurance training;Functional activity;Functional transfer training;Gait training;Parent/caregiver training and education;Positioning;Range of motion;Stair training;Therapeutic activity;Tr ansfer training PT Equipment Recommended Wheeled walker Progress during current admission Slow progress, decreased activity tolerance PT - Next Appointment 12/10/23 PT - OK to Discharge No (except to another facility) PT Evaluation Complete Yes Multi-Disciplinary Problems (from Physical Therapy) Active Problems Problem: Mobility Start Date: 12/08/23 Goal Start Date Expected End Date End Date LTG - Patient will ambulate community distance 12/08/23 03/21/24 -- Goal Details: 400' with use of cane, modified independently Goal Start Date Expected End Date End Date STG - Patient will ambulate 12/08/23 12/15/23 -- Goal Details: 150' with wheeled walker, modified independent Problem: Transfers Start Date: 12/08/23 Goal Start Date Expected End Date End Date STG - Patient to transfer to and from sit to supine 12/08/23 12/15/23 -- Goal Details: Supine <> side lying <> sit: supervision Goal Start Date Expected End Date End Date STG - Patient will transfer sit to and from stand 12/08/23 12/15/23 -- Goal Details: With wheeled walker, modified independent Problem: Orthotic Start Date: 12/08/23 Goal Start Date Expected End Date End Date STG - Patient and/or caregiver will don/doff orthotic with the following level of assist: 12/08/23 12/15/23 -- Goal Details: Caregiver to don/doff TLSO with less than 2 verbal cues * Ivelisse Olivares MD - 12/09/2023 7:55 AM CDT Orthopaedic Spine Service Daily Progress Note Admit Date: 12/02/2023 Hospital Day: 7 Michelle Dx: Pseudoarthrosis PMH: HTN, HLD, CAD, CHF, RBBB, A-fib with dual lead ICD, chronic pain, PALA with cochlear implant Proc: 12/01 Revision PSF [id number], decompression Exam: Normal motor exam. SILT. : 1945 Admit: 12/02/2023 Interval hx: 12/08: POD7. AFVSS. Labs from yesterday: WBC 8.9, H/H 9.1/26.9, Cr 0.63. AM labs pending today. Exam: Resting in bed. 11/28 BUE/BLE, SILT all dermatomes, dressing c/d/I. PT/OT dispo to [facility].- referrals sent. Continue lovenox for DVT ppx - no oral anticoagulants until POD30. Restart metoprolol today percards. Edited by: Ivelisse Olivares MD at 12/09/2023 0647 Objective Vitals: 24hr Min/Max: Temp Min: 36.6 ??C (97.8 ??F) Max: 36.6 ??C (97.9 ??F) Pulse Min: 69 Max: 75 BP Min: 90/54 Max: 136/55 Resp Min: 16 Max: 17 SpO2 Min: 90 % Max: 98 % I/O last 2 completed shifts: In: 2160 [P.O.:2150; I.V.:10] Out: 1620 [Urine:1620] No intake/output data recorded. Physical Exam: Gen: no acute distress Neuro: A&Ox3 Dressing: clean/dry/intact Wound Vac(s): Not applicable Hemo Vac(s): Not applicable Motor: Muscle Strength Right Left Shoulder abduction (C5) 5/5 5/5 Elbow flexion (C5/6) 5/5 5/5 Elbow extension (C7) 5/5 5/5 Wrist extension (C6) 5/5 5/5 Wrist flexion (C7) 5/5 5/5 Leave Manager (C8) 5/5 5/5 Interosseous of hand (T1) [...] lower extremity: SILT L2 to S1 dermatomes. Reflexes: Symmetric patellar, and biceps reflexes Vascular: Bilateral Upper Extremity: 2+ radial pulse, fingers WWP Bilateral Lower Extremity: 2+ DP pulse, toes WWP Lab/Diagnostic Review: Recent Labs Lab Units 12/07/23203212/05/23 0554 12/04/238 12/03/23 2246 12/03/23210612/03/23210412/03/23 0353 SODIUM mmol/L 136 < > 136 < > -- < > 141 POTASSIUM PLASMA mmol/L 4.2 < > 3.6 < > -- < > 4.2 CHLORIDE mmol/L 102 < > 104 < > -- < > 109 CO2 mmol/L 27 < > 26 < > -- < > 28 CO2 POC -- -- -- -- -- < > -- ANIONGAP mmol/L 7 < > 6 < > -- < > 4 GLUCOSE mg/dL 98 < > 146 < > -- < > 132 POC GLUCOSE MONITOR -- -- -- < > -- -- -- BUN SERUM mg/dL 7 < > 7 < > -- < > 12 CREATININE mg/dL 0.63 < > 0.54* < > -- < > 0.65 CALCIUM mg/dL 8.2* < > 7.8* < > -- < > 7.7* ALBUMIN g/dL -- -- 2.8* -- -- < > 3.3* ALK PHOS Units/L -- -- 84 -- -- < > 95 ALT Units/L -- -- 76* -- -- < > 183* AST Units/L -- -- 132* -- -- < > 218* BILIRUBIN TOTAL mg/dL -- -- 0.3 -- -- < > 0.5 WBC K/cumm 8.9 < > 11.1* -- 12.2* -- 11.4* HEMOGLOBIN, POC -- -- -- < > -- -- -- HEMOGLOBIN g/dL 9.1* < > 8.7* -- 10.2* -- 10.3* HEMATOCRIT % 26.9* < > 25.8* -- 29.4* -- 30.6* HEMATOCRIT POC -- -- -- < > -- -- -- PLATELETS K/cumm 272 < > 148* -- 180 -- 195 NEUTROS PCT % -- -- -- -- 77.4 -- -- LYMPHS PCT % -- -- -- -- 11.2 -- -- MONOS PCT % -- -- -- -- 7.3 -- -- EOS PCT % -- -- -- -- 3.0 -- -- APTT sec -- -- -- -- -- -- 26* INR -- -- -- -- -- -- 1.04 < > = values in this interval not displayed. Micro: Lab Results Component Value Date MICROBIOLOGY (.) 12/02/2023 Preliminary Report - Final Review Pending: Rare Staphylococcus epidermidis [ ] confirm with cards when to restart metop (12/08) - continu amio and metop Hold dilt 12/07 Bedoya removed, voiding. Rehab referrals sent Consults: SICU, Cardiology Meds: Multimodal pain Results: N/A Drains / bedoya: AUDREY drain d/cd / D/c bedoya today ASA / PLX / Anticoag: SCDs. Lvx POD2 Incision / Brace: monocryl, dermabond, tegaderm /custom TLSO brace Dispo / FU: Scheduled for 12/22 at 12p with Miguel Angel HANEY for wound check, 01/04 at 740a with Miguel Angel Edited by: Ivelisse Olivares MD at 12/09/2023 0647 Please call with questions during daytime. See below for overnight issues. If you know the resident's name on the appropriate orthopaedic surgery team, please use [email or web address] to page resident directly. If questions arise and the appropriate resident can't be reached or you are calling overnight, please contact [phone] ([facility] 7:30 PM - 6:30 AM - Floor Resident) or [phone] (24 hours/day - Consult Resident) Cosigned by Rg Sultana MD at 12/22/2023 4:01 PM CDT * Latricia Chao, RD - 12/08/2023 12:59 PM CDT NUTRITION ASSESSMENT Nutrition Status: Patient does not meet ASPEN criteria for malnutrition at this time. REASON FOR ASSESSMENT: Length of Stay Encounter Date: 12/08/23 1:12 PM Admission Date: 12/02/2023 LOS: 6 days HPI: Patient is a 78 y.o. female Dx: Pseudoarthrosis PMH: HTN, HLD, CAD, CHF, RBBB, A-fib with dual lead ICD, chronic pain, PALA with cochlear implant Proc: 12/01 Revision PSF [id number], decompression Objective Past Medical History: Diagnosis Date Allergic rhinitis Anxiety unknown maybe 1989 Arthritis 2018 Atrial fibrillation (CMS/HCC) (HCC) Auditory vertigo Meniere's disease Coronary artery disease Depression 1990 Heart disease Afib 2019 HL (hearing loss) HLD (hyperlipidemia) Meniere's disease Microvascular angina (HCC) Mixed conductive and sensorineural hearing loss 1989 Osteoporosis 2013 Tinnitus Past Surgical History: Procedure Laterality Date BACK SURGERY 2017 lower back, 2018, 2019 BRAIN SURGERY Left Ear cochlear implant 2019 CHOLECYSTECTOMY Cholecystectomy COCHLEAR IMPLANT Left 06/19/2020 IR INJECTION ARTHROGRAM SI JOINT BILATERAL WITH GUIDANCE Bilateral 02/15/2021 IR INJECTION ARTHROGRAM SI JOINT LEFT INCLUDES IMAGING GUIDANCE Left 09/06/2021 JOINT REPLACEMENT Hip replacement, L - 2013, R - 2014 - Nataliya OTHER SURGICAL HISTORY 1999 Sectioning of left vesibular nerve SPINE SURGERY 2017, 2018, 2019, 2020 TOTAL HIP ARTHROPLASTY Bilateral 2014 VESTIBULAR NERVE SECTION Left Social History Tobacco Use Smoking status: Never Smokeless tobacco: Never Substance and Sexual Activity Drug use: Never Sexual activity: Not Currently Partners: Female control/protection: None Comment: same sex Alcohol Use: Not At Risk (12/02/2023) AUDIT-C Frequency of Alcohol Consumption: 4 or more times a week Average Number of Drinks: 1 or 2 Frequency of Binge Drinking: Never MEDICATION/LAB REVIEW: Scheduled Meds: acetaminophen, 1,000 mg, oral, Q6H ELAINA alendronate, 70 mg, oral, Q7 Days amiodarone, 400 mg, oral, TID Followed by [START ON 12/12/2023] amiodarone, 400 mg, oral, BID Followed by [START ON 12/15/2023] amiodarone, 200 mg, oral, Daily atorvastatin, 40 mg, oral, Nightly bisacodyL, 10 mg, rectal, Daily cholecalciferol, 2,000 Units, oral, QAM DULoxetine DR, 60 mg, oral, QAM enoxaparin, 40 mg, subcutaneous, Daily-2100 lidocaine, 2 patch, transdermal, Daily methocarbamoL, 750 mg, oral, Q8H multivitamin therapeutic, 1 tablet, oral, Daily pantoprazole DR, 40 mg, oral, Daily ramelteon, 8 mg, oral, Nightly senna-docusate, 2 tablet, oral, BID sodium chloride 0.9%, 0.5-20 mL, intra-catheter, Q8H [facility] Continuous Infusions: PRN Meds: bisacodyl EC sodium chloride 0.9% fluticasone propionate HYDROmorphone magnesium hydroxide mineral oil ondansetron oxyCODONE prochlorperazine simethicone sodium chloride 0.9% Recent Labs Lab Units 12/07/23203212/06/23205012/05/23 1937 12/05/23 0554 12/04/23 2128 SODIUM mmol/L 136 137 135 < > 136 POTASSIUM PLASMA mmol/L 4.2 4.2 3.7 < > 3.6 CHLORIDE mmol/L 102 104 103 < > 104 CO2 mmol/L 27 25 25 < > 26 BUN SERUM mg/dL 7 6 5* < > 7 CREATININE mg/dL 0.63 0.62 0.56* < > 0.54* [id number] mL/min/1.73 m2 >90 >90 >90 < > >90 CALCIUM mg/dL 8.2* 8.0* 8.2* < > 7.8* ALBUMIN g/dL -- -- -- -- 2.8* PHOSPHORUS PLASMA mg/dL 3.0 2.6 2.3 < > 1.7* MAGNESIUM mg/dL 2.0 2.1 2.2 < > 1.8 < > = values in this interval not displayed. Recent Labs Lab Units 12/07/23203212/06/23205012/05/23193612/05/23 0554 12/04/23212712/04/23192712/04/23 1540 GLUCOSE mg/dL 98 93 116 117 146 -- -- POC GLUCOSE MONITOR mg/dL -- -- -- -- -- 129 115 No results found for: ALT , AST , BILIRUBIN , ALKPHOS , LIPASE Lab Results Component Value Date HGBA1C 5.5 11/12/2023 HDL 33 (L) 12/04/2023 LDLCALC 32 12/04/2023 CHOL 93 12/04/2023 TRIG 139 12/04/2023 NURSING ASSESSMENT: Last BM Date: 12/07/23 Bowel Sounds (All Quadrants): Present Song Scale Score: 19 Skin Integrity: Abrasion, Bruising, Surgical incision, Other (Comment) (scabs and MASD) Vital Signs BP: 109/54 Temp: 36.6 ??C (97.9 ??F) Pulse: 69 Resp: 17 SpO2: 98 % Intake/Output Summary (Last 24 hours) at 12/08/2023 1312 Last data filed at 12/08/2023 1100 Gross per 24 hour Intake 700 ml Output 2085 ml Net -1385 ml Adult Malnutrition Scoring Tool (MST) What diet do you follow at home?: re Have You Recently Lost Weight Without Trying?: No Have you been eating poorly because of a decreased appetite?: No Malnutrition Screening Tool (MST) Score: 0 Anthropometrics Weight: 79.4 kg (175 lb) Admission Weight : 79.4 kg Weight Change: -0.42 kg (-0.92 lbs) IBW/kg (Calculated) : 56.7 kg Height: 165.1 cm (5' 5 ) Weight in (lb) to have BMI = 25: 149.9 BMI (Calculated): 29.1 Wt Readings from Last 10 Encounters: 12/03/23 79.4 kg (175 lb) 11/12/23 79.8 kg (175 lb 14.8 oz) 09/29/23 79.5 kg (175 lb 3.2 oz) 08/04/23 79.8 kg (176 lb) 07/31/23 79.8 kg (176 lb) 03/25/23 78.7 kg (173 lb 6.4 oz) 02/24/23 78.5 kg (173 lb) 02/10/23 77.6 kg (171 lb) 12/23/22 77.6 kg (171 lb) 11/28/22 76.2 kg (168 lb) ESTIMATED NEEDS: . Dietary Orders (From admission, onward) Start Ordered 12/08/23 1123 Oral Nutrition Supplements ([facility]) Select Supplement: Ensure PLUS High Protein - Chocolate All Meals Question: ([facility]) Select Supplement: Answer: Ensure PLUS High Protein - Chocolate 12/08/23 1122 12/04/23 0939 Adult Diet Restricted; 2 GM Sodium Diet effective now Question Answer Comment ([facility]) Diet type Restricted Fat / Sodium Restriction: 2 GM Sodium 12/04/23 0938 Allergies: Reviewed. IMPRESSION: Pt reports she had been eating fine before admission with a good appetite. Since admitted, pt with pain and discomfort and decreased PO Intake. Pt will need assist with meals per pt report, ordered. Pt also is willing to try ensure to help meet nutrition needs as she has been consuming <50%of meals. Some nausea today, but reports it is likely due to her not eating breakfast. Usual weightof 173#, stable. ASPEN MALNUTRITION ASSESSMENT: Date of completion: 12/08/2023 ASPEN/AND Malnutrition Screening: Patient does not meet malnutrition criteria NUTRITION FOCUSED PHYSICAL EXAM: Not clinically indicated, no concerns for malnutrition at this time. NUTRITION DIAGNOSIS: Nutrition Diagnosis 1: Inadequate energy intake Related to: Acute illness/injury, Recent surgery Evidenced by: Patient interview INTERVENTION(S): Summary: Encouragement, Meals and snacks, Medical food supplement Continue low sodium diet. Encouraged PO intake, snacks, supplements. Ordered ensure plus chocolate TID to help meet nutrition needs. Ordered assist with meals. Encouraged snacks from pantry as needed. GOAL(S): Adequate nutrition to meet estimated needs by next assessment MONITORING/EVALUATION: Appetite, Labs, Plan of care, PO intake, Stool patterns, Supplement tolerance, Weight changes Latricia Chao, MS RD LD #[phone] * Amy Jean, PT - 12/08/2023 10:21 AM CDT Physical Therapy Physical Therapy Progress Note NOTE: This is a summary note of the khanna components of the treatment session. For full details, review chart for all flowsheets documented on by this physical therapy clinician on this date. Vital signs documented in vital signs flowsheet. Care plan progress documented in Care Plan Activity. For questions, please review the treatment team and contact the PT or CHIPPER currently assigned to this patient. If a physical therapy clinician is not assigned to this patient, please call [phone]. 12/08/23 1021 PT Last Visit Session Type Treatment PT Received On 12/08/23 Safe Environment Arm band checked;Patient found sitting in chair;Session completed bedside;Gait belt not utilized, see comment (used inferior edge of TLSO in lieu of gait belt) Subjective Agreeable to Therapy Subjective Comment she stated her spouse () is not going to be able to assist her that much, she believes this will be too difficult for her to do. Family/Caregiver Present No Current Functional Status PT Functional Mobility Interventions: patient educated in precautions and mobility within precautions Precautions Precautions Fall risk;Spinal/Back Weight Bearing Restrictions No Braces/Orthoses TLSO (TLSO on whenever OOB (clam-shell)) Precaution Handout Issued No Activity Tolerance Endurance Tolerates 10 - 20 min activity with multiple rests Pain Assessment Pain Assessment 0-10 Pain Score 9 Pain Interventions Repositioned;Elevated;RN Notified (DARION Whalen) Cognition Arousal/Alertness Alert;Appropriate responses to stimuli Attention Span Appears intact;Age appropriate Memory Appears intact Current communication Appears Intact Orientation Oriented X4 (person, place, time, situation) Following Commands Follows all commands and directions without difficulty Safety Judgment Good awareness of safety precautions Awareness of Errors Assistance required to identify errors made;Assistance required to correct errors made;Decreased awareness of errors Insight Decreased awareness of deficits Problem Solving Assistance required to identify errors made;Assistance required to generate solutions;Assistance required to implement solutions Compliance/Behavior Easy to engage Perseveration Not present Bed Mobility Bed Mobility No (NT--patient sitting in chair upon entry/exit from her room) Transfers Transfer Yes Transfer 1 Transfer From 1 Sit Transfer Type 1 To and from Transfer to 1 Stand Technique 1 Sit to stand;Stand to sit Transfer Device 1 Wheeled walker Transfer Level of Assistance 1 Contact Guard Assist Trials/Comments 1 cues to perform components of task, Ambulation Functional Ambulation Category 2 Ambulation Yes Ambulation 1 Distance (ft) 1 70 Surface 1 Level tile Device 1 Wheeled walker Assistance 1 Minimum Assist Gait: Requires assist with 1 Maintaining balance Gait: Requires verbal cues to 1 Use assistive device safely;Utilize appropriate gait sequencing;Improve upright posture;Pace activity Gait Deviations 1 Base of support - decreased;Tanya - decreased;Heel strike - decreased;Stance time - decreased;Step length - decreased;Weight bearing through UE???s - increased;Turns - difficulty Quality of Gait 1 very slow, decreased step length, reciprocal gait Stairs Stairs No Basic Mobility - 6 Click How much difficulty does the patient have: Turning over in bed 3 How much difficulty does the patient currently have: Sitting down and standing up from a chair witharms? 2 How much difficulty does the patient have: Moving from lying on back to sitting on the side of the bed? 2 How much difficulty does the patient have: Moving to and from a bed to a chair including wheelchair? 3 How much help does the patient currently need: Walk in hospital room? 3 How much help from another person does the patient currently need: Climbing 3-5 steps with a railing? 1 Total 6 Click Score (range 6-24) 14 Safe Environment End of Therapy Session Safe Environment End of Therapy Session Patient left in recliner;RN notified;Call light within reach;Overbed table within reach;Bed in lowest position with wheels locked;Bed rails up per protocol Assessment Prognosis Good Problem List Gait deviations;Decreased strength;Decreased range of motion;Decreased endurance;Decreased mobility;Obesity;Decreased skin integrity;Orthopedic restrictions;Pain;Postural deficit Barriers to Discharge Current Mobility Status;Inaccessible home environment;Home environment challenged;Decreased caregiver support Plan Plan Continue with current plan;If this is the last note, consider this the discharge summary Recommendation/Plan PT Recommendation/Plan Inpatient Rehab Facility Patient at high risk for Falls;Readmission;Injury due to decreased ability to care for self;Injury due to reduced functional status;Injury due to balance deficits;Prolonged dependence for self care tasks;Difficulty maintaining orthopedic restrictions;Unable to don/doff bracing Recommend Inpatient Rehab/Acute Rehab due to Not at baseline due to impaired ability to complete ADLs;Impaired ability to complete functional mobility;Likely to return to the community at discharge with support system in place;Requires greater than 25% physical assistance with most mobility tasks;Requires multiple therapy disciplines to address functional deficits;Patient and caregiver require specialized skilled training due to new level of function/diagnosis;Requires skilled therapy interventions to address neurological deficits PT Frequency during current admission 5-7x/wk Treatment/Interventions during current admission Balance Training;Bed mobility;Endurance training;Functional activity;Functional transfer training;Gait training;Parent/caregiver training and education ;Positioning;Orthotic management;Therapeutic activity;Transfer training PT Equipment Recommended Wheeled walker Progress during current admission Slow progress, decreased activity tolerance PT - Next Appointment 12/09/23 PT - OK to Discharge No (except to another facility) PT Evaluation Complete Yes Multi-Disciplinary Problems (from Physical Therapy) Active Problems Problem: Mobility Start Date: 12/08/23 Goal Start Date Expected End Date End Date LTG - Patient will ambulate community distance 12/08/23 03/21/24 -- Goal Details: 400' with use of cane, modified independently Goal Start Date Expected End Date End Date STG - Patient will ambulate 12/08/23 12/15/23 -- Goal Details: 150' with wheeled walker, modified independent Problem: Transfers Start Date: 12/08/23 Goal Start Date Expected End Date End Date STG - Patient to transfer to and from sit to supine 12/08/23 12/15/23 -- Goal Details: Supine <> side lying <> sit: supervision Goal Start Date Expected End Date End Date STG - Patient will transfer sit to and from stand 12/08/23 12/15/23 -- Goal Details: With wheeled walker, modified independent Problem: Orthotic Start Date: 12/08/23 Goal Start Date Expected End Date End Date STG - Patient and/or caregiver will don/doff orthotic with the following level of assist: 12/08/23 12/15/23 -- Goal Details: Caregiver to don/doff TLSO with less than 2 verbal cues * Ivelisse Olivares MD - 12/08/2023 5:35 AM CDT Orthopaedic Spine Service Daily Progress Note Admit Date: 12/02/2023 Hospital Day: 6 Michelle Dx: Pseudoarthrosis PMH: HTN, HLD, CAD, CHF, RBBB, A-fib with dual lead ICD, chronic pain, PALA with cochlear implant Proc: 12/01 Revision PSF [id number], decompression Exam: Normal motor exam. SILT. : 1945 Admit: 12/02/2023 Interval hx: 12/07: POD6. AFVSS. TTF. 100ft with PT yesterday, rec IPR. WBC 8.9, H/H 9.1/26.9, Cr 0.63. Exam: Resting in bed. 11/28 BUE/BLE, SILT all dermatomes, dressing c/d/I. Bedoya in place. Plan for d/c bedoya and void trial when mobilizing (today), upright scoli XR when able (ordered for today), PT/OT dispo. Continue lovenox for DVT ppx - no oral anticoagulants until POD30. Edited by: Ivelisse Olivares MD at 12/08/2023 0446 Objective Vitals: 24hr Min/Max: Temp Min: 36.6 ??C (97.8 ??F) Max: 37 ??C (98.6 ??F) Pulse Min: 66 Max: 77 BP Min: 102/59 Max: 145/37 Resp Min: 11 Max: 20 SpO2 Min: 85 % Max: 100 % I/O last 2 completed shifts: In: 780 [P.O.:500; IV Piggyback:280] Out: 2800 [Urine:2690; Drains:110] I/O this shift: In: - Out: 1250 [Urine:1250] Physical Exam: Gen: no acute distress Neuro: A&Ox3 Dressing: clean/dry/intact Wound Vac(s): Not applicable Hemo Vac(s): Not applicable Motor: Muscle Strength Right Left Shoulder abduction (C5) 5/5 5/5 Elbow flexion (C5/6) 5/5 5/5 Elbow extension (C7) 5/5 5/5 Wrist extension (C6) 5/5 5/5 Wrist flexion (C7) 5/5 5/5 Leave Manager (C8) 5/5 5/5 Interosseous of hand (T1) [...] lower extremity: SILT L2 to S1 dermatomes. Reflexes: Symmetric patellar, and biceps reflexes Vascular: Bilateral Upper Extremity: 2+ radial pulse, fingers WWP Bilateral Lower Extremity: 2+ DP pulse, toes WWP Lab/Diagnostic Review: Recent Labs Lab Units 12/07/23203212/05/23 0554 12/04/23212712/03/236 12/03/23210612/03/23210412/03/23 0353 SODIUM mmol/L 136 < > 136 < > -- < > 141 POTASSIUM PLASMA mmol/L 4.2 < > 3.6 < > -- < > 4.2 CHLORIDE mmol/L 102 < > 104 < > -- < > 109 CO2 mmol/L 27 < > 26 < > -- < > 28 CO2 POC -- -- -- -- -- < > -- ANIONGAP mmol/L 7 < > 6 < > -- < > 4 GLUCOSE mg/dL 98 < > 146 < > -- < > 132 POC GLUCOSE MONITOR -- -- -- < > -- -- -- BUN SERUM mg/dL 7 < > 7 < > -- < > 12 CREATININE mg/dL 0.63 < > 0.54* < > -- < > 0.65 CALCIUM mg/dL 8.2* < > 7.8* < > -- < > 7.7* ALBUMIN g/dL -- -- 2.8* -- -- < > 3.3* ALK PHOS Units/L -- -- 84 -- -- < > 95 ALT Units/L -- -- 76* -- -- < > 183* AST Units/L -- -- 132* -- -- < > 218* BILIRUBIN TOTAL mg/dL -- -- 0.3 -- -- < > 0.5 WBC K/cumm 8.9 < > 11.1* -- 12.2* -- 11.4* HEMOGLOBIN, POC -- -- -- < > -- -- -- HEMOGLOBIN g/dL 9.1* < > 8.7* -- 10.2* -- 10.3* HEMATOCRIT % 26.9* < > 25.8* -- 29.4* -- 30.6* HEMATOCRIT POC -- -- -- < > -- -- -- PLATELETS K/cumm 272 < > 148* -- 180 -- 195 NEUTROS PCT % -- -- -- -- 77.4 -- -- LYMPHS PCT % -- -- -- -- 11.2 -- -- MONOS PCT % -- -- -- -- 7.3 -- -- EOS PCT % -- -- -- -- 3.0 -- -- APTT sec -- -- -- -- -- -- 26* INR -- -- -- -- -- -- 1.04 < > = values in this interval not displayed. Micro: Lab Results Component Value Date MICROBIOLOGY (.) 12/02/2023 Preliminary Report: Rare Staphylococcus epidermidis [x] custom TLSO (okay to be OOB w/o TLSO until arrives, once here okay to take off in bed) - TV texted [ ] upright scolis (ordered) [ ] d/c bedoya and void trial when mobilizing [ ] confirm with cards when to restart metop [x] Lvx POD2 (12/03) [X] needs bone stimulator (tasked) 12/01: OR 12/02 RADIOLOGY ASST dc'd. Patient had a run of Vtach, Mg and Ph checked, metop resumed. 12/02-: Please see significant event no by me as well as note from Dr. Michelle, patient transferredto the SICU overnight after act called for tachycardia with significant hypotension 12/06 Drain removed Consults: SICU, Cardiology Meds: Multimodal pain Results: N/A Drains / bedoya: AUDREY drain d/cd / D/c bedoya today ASA / PLX / Anticoag: SCDs. Lvx POD2 Incision / Brace: monocryl, dermabond, tegaderm /custom TLSO brace Dispo / FU: Scheduled for 12/22 at 12p with Miguel Angel RN for wound check, 01/04 at 740a with Miguel Angel Edited by: Ivelisse Olivares MD at 12/08/2023 0535 Please call with questions during daytime. See below for overnight issues. If you know the resident's name on the appropriate orthopaedic surgery team, please use [email or web address] to page resident directly. If questions arise and the appropriate resident can't be reached or you are calling overnight, please contact [phone] ([facility] 7:30 PM - 6:30 AM - Floor Resident) or [phone] (24 hours/day - Consult Resident) Cosigned by Rg Sultana MD at 12/22/2023 4:01 PM CDT * Rika Andrade, OT - 12/07/2023 10:45 AM CDT Occupational Therapy Occupational Therapy Evaluation Note NOTE: This is a summary note of the khanna components of the evaluation session. For full details, review chart for all flowsheets documented on by this occupational therapy clinician on this date. Vital signs are documented in vital signs flowsheet. For questions, please review the treatment team and contact the occupational therapist currently assigned to this patient. If an occupational therapist is not assigned to this patient, please call [phone]. 12/07/23 1045 General Chart Reviewed Yes Session Type Evaluation OT Received On 12/07/23 Safe Environment Arm band checked;Patient found sitting in chair Subjective Agreeable to Therapy Family/Caregiver Present No Precautions Precautions Drains;Fall risk;Spinal/Back Weight Bearing Restrictions No Braces/Orthoses TLSO Precaution Comments verbally reviewed precautions with patient Home Living Type of Home House Home Layout Multi-level Home Access Stairs to enter with rails Entrance Stairs-Number of Steps Pt uses stair lift to enter the home from garage Bathroom Shower/Tub Walk-in shower without threshold Bathroom Toilet Standard Bathroom Equipment Shower chair;Grab bars in shower/tub Bathroom Accessibility Accessible Home Mobility Equipment-Available Wheeled walker;Single point cane Home Mobility Equipment-Currently Using None Prior Function Level of [place] Independent with ADLs;Independent functional transfers;Independent with ambulation Lives With Spouse Receives Help From Spouse/Significant other (FT assist from ) ADL Assistance Independent Instrumental ADL (IADL) Assistance Independent Fall within the last 6 months No ADL ADLS (WDL) X Grooming Grooming: Where assessed Standing at sink Grooming: Level of assistance Minimum Assist Grooming: Assistance with Increased time to complete;Safety;Balance LE Dressing LE Dressing: Where assessed Chair LE Dressing: Level of assistance Moderate Assist LE Dressing: Assistance with Don/doff R sock;Don/doff L sock;Thread RLE into pants;Thread LLE into pants;Thread RLE into underwear;Thread LLE into underwear LE Dressing: Equipment Utilized (Pt reported no further concerns as spouse will assist post discharge.) Toilet Transfers Toilet Transfer From Chair with arms Toilet Transfer Type To and from Toilet Transfer to Standard bedside commode (simulated) Toilet Transfer Technique Ambulating Toilet Transfer: Equipment Wheeled walker Toilet Transfers Minimal assistance Toilet Transfers Comments Min A for safety, balance, and force production Pain Assessment Pain Assessment No/denies pain Cognition Arousal/Alertness Alert;Appropriate responses to stimuli Attention Span Appears intact Current communication Appears Intact Orientation Oriented X4 (person, place, time, situation) Following Commands Follows all commands and directions without difficulty Safety Judgment Good awareness of safety precautions Awareness of Errors Good awareness of errors made Insight Fully aware of deficits Problem Solving Able to problem solve independently Compliance/Behavior Easy to engage Perseveration Not present Balance Tests Balance Tests Yes Tinetti Sitting Balance 1 Arises 1 Attempts to Arise 0 Immediate Standing Balance (First 5 Seconds) 1 Standing Balance 1 Nudged 0 Eyes Closed 1 Turned 360 Degrees: Steadiness 0 Turned 360 Degrees: Continuity of Steps 0 Sitting Down 1 Balance Score 6 Balance Balance Yes Static Sitting Balance Static Sitting-Balance Support Feet supported;Bilateral upper extremity supported Static Sitting-Sitting Surface Chair Static Sitting-Level of Assistance Close supervision Static Sitting-Comment/# of Minutes safety Static Standing Balance Static Standing-Balance Support Bilateral upper extremity supported (using WW) Static Standing-Standing Surface Floor Static Standing-Level of Assistance Minimum assistance Static Standing-Comment/# of Minutes Min A for safety and steadying assist Bed Mobility Bed Mobility No (Pt found and left in chair) Transfers Transfer Yes Transfer 1 Transfer From 1 Sit Transfer Type 1 To and from Transfer to 1 Stand Technique 1 Sit to stand;Stand to sit Transfer Device 1 Wheeled walker Transfer Level of Assistance 1 Minimum Assist Trials/Comments 1 Min A for safety, balance, and force production RUE Assessment RUE Assessment WFL LUE Assessment LUE Assessment WFL Daily Activity - 6 Clicks Putting on and taking off regular lower body clothing 2 Bathing 2 Toileting 2 Putting on and taking off upper body clothing 3 Personal Grooming 3 Eating Meals 3 Total Score (range 6-24) 15 Score Interpretation 34.69 Safe Environment End of Therapy Session Safe Environment End of Therapy Session Patient left in chair;RN notified;Call light within reach;Overbed table within reach Assessment Problem List Decreased endurance;Decreased balance;Decreased functional mobility;Decreased ADL independence;Decreased IADL independence Barriers to Discharge Current Mobility Status;Current ADL Status Barrier Comments fall risk Plan Plan Plan of care initiated;If this is the last note, consider this the discharge summary Recommendation/Plan OT Recommendation Inpatient Rehab Facility Patient at high risk for Falls;Readmission;Injury due to balance deficits;Injury due to impaired cognition;Injury due to reduced functional status;Injury due to decreased ability to care for self Recommend Inpatient Rehab/Acute Rehab due to Ability to actively participate in intensive therapy 3hours/day, 5 days/week or 900 minutes per week;Highly motivated to participate in therapy;Not at baseline due to impaired ability to complete ADLs;Impaired ability to complete functional mobility;Likely to return to the community at discharge with support system in place;Requires greater than 25% physical assistance with most mobility tasks;Requires greater than 25% physical assistance with most ADL tasks;Requires skilled therapy interventions to address neurological deficits;Patient and caregiver require specialized skilled training due to new level of function/diagnosis;Requires multiple the rapy disciplines to address functional deficits OT Frequency during current admission 5-7x/wk Treatment/Interventions during current admission ADL/IADL retraining;Balance Training;Bed mobility;Endurance training;Functional activity;Functional mobility training;Functional transfer training;Strengthening;Therapeutic activity;Therapeutic exercise;Transfer training OT - Next Appointment 12/08/23 OT Evaluation Complete Yes Multi-Disciplinary Problems (from Occupational Therapy) Active Problems Problem: Dressings Lower Extremities Start Date: 12/07/23 Problem: Grooming Start Date: 12/07/23 Goal Start Date Expected End Date End Date STG - Patient will complete grooming 12/07/23 12/14/23 -- Goal Details: With SPV standing at the sink Problem: Toileting Start Date: 12/07/23 Goal Start Date Expected End Date End Date STG - Patient will complete toileting tasks with 12/07/23 12/14/23 -- Goal Details: SPV Problem: Transfers Start Date: 12/07/23 Goal Start Date Expected End Date End Date STG - Patient will perform toilet transfer 12/07/23 12/14/23 -- Goal Details: With SPV to standard toilet * Jeremy Saucedo, PT - 12/07/2023 8:50 AM CDT Physical Therapy Physical Therapy Progress Note NOTE: This is a summary note of the khanna components of the treatment session. For full details, review chart for all flowsheets documented on by this physical therapy clinician on this date. Vital signs documented in vital signs flowsheet. Care plan progress documented in Care Plan Activity. For questions, please review the treatment team and contact the PT or CHIPPER currently assigned to this patient. If a physical therapy clinician is not assigned to this patient, please call [phone]. 12/07/23 0850 PT Last Visit Session Type Treatment PT Received On 12/07/23 Safe Environment Arm band checked;Session completed bedside Subjective Agreeable to Therapy Family/Caregiver Present No Precautions Precautions Drains;Fall risk;Spinal/Back Weight Bearing Restrictions No Braces/Orthoses TLSO (Donned prior to session by RN) Precaution Comments Verbally reviewed precautions, patient verbalized understanding Activity Tolerance Activity Tolerance Comments Karyna: (06/15) Pain Assessment Pain Assessment No/denies pain Cognition Arousal/Alertness Alert;Appropriate responses to stimuli Orientation Oriented X4 (person, place, time, situation) Following Commands Follows all commands and directions without difficulty Balance Balance Yes Static Sitting Balance Static Sitting-Balance Support Unilateral upper extremity supported;No upper extremity supported Static Sitting-Sitting Surface Chair (back unsupported) Static Sitting-Level of Assistance Distant supervision Static Sitting-Comment/# of Minutes Sup for safety Static Standing Balance Static Standing-Balance Support Bilateral upper extremity supported (WW) Static Standing-Standing Surface Floor Static Standing-Level of Assistance Contact guard Static Standing-Comment/# of Minutes CGA for steadying assist ICU Mobility Scale ICU Mobility Scale 8 FSS-ICU Functional Status Score (ICU scale) Rolling 0 Supine to Sit 0 Sitting 5 Sit to Stand 4 Ambulation or Wheelchair Mobility? Ambulation Ambulation 4 Score (Out of 35) 13 Bed Mobility Bed Mobility No (Patient up to chair with RN) Transfers Transfer Yes Transfer 1 Transfer From 1 Sit Transfer Type 1 To and from Transfer to 1 Stand Technique 1 Sit to stand;Stand to sit Transfer Device 1 Wheeled walker Transfer Level of Assistance 1 Minimum Assist Trials/Comments 1 Min A for force production and steadying assist, Patient demonstrates adequate eccentric control required for a controlled descent into chair Ambulation Ambulation Yes Ambulation 1 Distance (ft) 1 50 (x2) Surface 1 Level tile Device 1 Wheeled walker Other Apparatus 1 Wheelchair follow Assistance 1 Minimum Assist;Contact Guard Assist Gait: Requires assist with 1 Maintaining balance Gait: Requires verbal cues to 1 Use assistive device safely;Follow precautions/weight bearing status;Utilize appropriate gait sequencing Gait Deviations 1 Step length - decreased;Weight bearing through UE???s - increased;Tanya - decreased;Hip/knee flexion during swing phase - decreased;Heel strike - decreased Ambulation Comments 1 10m walk test: 0.72m/s Stairs Stairs No Stair Comments Not performed due to ICU line burden Basic Mobility - 6 Click How much difficulty does the patient have: Turning over in bed 3 How much difficulty does the patient currently have: Sitting down and standing up from a chair witharms? 3 How much difficulty does the patient have: Moving from lying on back to sitting on the side of the bed? 3 How much difficulty does the patient have: Moving to and from a bed to a chair including wheelchair? 3 How much help does the patient currently need: Walk in hospital room? 3 How much help from another person does the patient currently need: Climbing 3-5 steps with a railing? 2 Total 6 Click Score (range 6-24) 17 Score Interpretation 39.67 Safe Environment End of Therapy Session Safe Environment End of Therapy Session RN notified;Call light within reach;Overbed table within reach;Patient left in chair Assessment Prognosis Good Problem List Decreased strength;Impaired balance;Decreased mobility;Decreased coordination;Orthopedic restrictions;Pain Problem List Comments PT Diagnosis: Revision PSF [id number], decompression results in above listed activity deficits and impairments which prevent full participation in home and community mobility Barriers to Discharge Current Mobility Status Plan Plan Continue with current plan;If this is the last note, consider this the discharge summary Recommendation/Plan PT Recommendation/Plan Inpatient Rehab Facility Patient at high risk for Falls;Readmission;Injury due to reduced functional status;Injury due to balance deficits Recommend Inpatient Rehab/Acute Rehab due to Ability to actively participate in intensive therapy 3hours/day, 5 days/week or 900 minutes per week;Highly motivated to participate in therapy;Impaired ability to complete functional mobility;Requires greater than 25% physical assistance with most mobility tasks;Requires multiple therapy disciplines to address functional deficits PT Recommendation/Plan Comments Patient agreeable with current plan of care PT Frequency during current admission 5-7x/wk Treatment/Interventions during current admission Balance Training;Bed mobility;Endurance training;Equipment eval/education;Functional activity;Functional transfer training;Gait training;Neuromuscularre- education;Strengthening;Therapeutic activity;Therapeutic exercise PT Equipment Recommended Other (Comment) (Pending progress) Progress during current admission Progressing toward goals PT - Next Appointment 12/08/23 PT Evaluation Complete Yes Multi-Disciplinary Problems (from Physical Therapy) Active Problems Problem: Mobility Start Date: 12/03/23 Goal Start Date Expected End Date End Date LTG - Patient will ambulate household distance independently 12/03/23 01/03/24 -- Goal Start Date Expected End Date End Date STG - Patient will ambulate 50ft with LRD with SBA 12/03/23 12/13/23 -- Problem: Transfers Start Date: 12/03/23 Goal Start Date Expected End Date End Date STG - Transfer from bed to chair with sup 12/03/23 12/13/23 -- Goal Start Date Expected End Date End Date STG - Patient to transfer to and from sit to supine with sup 12/03/23 12/13/23 -- Goal Start Date Expected End Date End Date STG - Patient will transfer sit to and from stand with sup 12/03/23 12/13/23 -- * Ivelisse Olivares MD - 12/07/2023 7:14 AM CDT Orthopaedic Spine Service Daily Progress Note Admit Date: 12/02/2023 Hospital Day: 5 Michelle Dx: Pseudoarthrosis PMH: HTN, HLD, CAD, CHF, RBBB, A-fib with dual lead ICD, chronic pain, PALA with cochlear implant Proc: 12/01 Revision PSF [id number], decompression Exam: Normal motor exam. SILT. : 1945 Admit: 12/02/2023 Interval hx: 12/06: POD5. Intermittently back in afib o/n requiring amio bolus and magnesium- now back in NSR with HR is 60s on oral amio. Off all pressors x24 hours. WBC 6.9, H/H 8.7/25.8, Cr 0.62 . D1 to gravity, 20/55cc. Exam: Resting in bed. 5/5 BUE/BLE, SILT all dermatomes, dressing c/d/I. Bedoya in place. Plan for d/c bedoya and void trial when mobilizing, upright scoli XR when able, PT/OT. Continue lovenox for DVT ppx - no oral anticoagulants until POD30. Objective Vitals: 24hr Min/Max: Temp Min: 36.4 ??C (97.5 ??F) Max: 36.6 ??C (97.8 ??F) Pulse Min: 66 Max: 137 BP Min: 91/53 Max: 130/53 Resp Min: 11 Max: 19 SpO2 Min: 84 % Max: 100 % I/O last 2 completed shifts: In: 1767.5 [P.O.:1300; I.V.:137.5; IV Piggyback:330] Out: 2856 [Urine:2801; Drains:55] No intake/output data recorded. Physical Exam: Wound Vac(s): N/a Hemo Vac(s): Holding suction nicely, no apparent leaks Motor: Muscle Strength Right Left Shoulder abduction (C5) 5/5 5/5 Elbow flexion (C5/6) 5/5 5/5 Elbow extension (C7) 5/5 5/5 Wrist extension (C6) 5/5 5/5 Wrist flexion (C7) 5/5 5/5 Leave Manager (C8) 5/5 5/5 Interosseous of hand (T1) [...] [facility] Lab/Diagnostic Review: Recent Labs Lab Units 12/06/23222312/06/23205012/05/23 0554 12/04/238 12/03/23 2246 12/03/23 2107 12/03/23 2105 12/03/23 0353 SODIUM mmol/L -- 137 < > 136 < > -- < > 141 POTASSIUM PLASMA mmol/L -- 4.2 < > 3.6 < > -- < > 4.2 CHLORIDE mmol/L -- 104 < > 104 < > -- < > 109 CO2 mmol/L -- 25 < > 26 < > -- < > 28 CO2 POC -- -- -- -- -- -- < > -- ANIONGAP mmol/L -- 8 < > 6 < > -- < > 4 GLUCOSE mg/dL -- 93 < > 146 < > -- < > 132 POC GLUCOSE MONITOR -- -- -- -- < > -- -- -- BUN SERUM mg/dL -- 6 < > 7 < > -- < > 12 CREATININE mg/dL -- 0.62 < > 0.54* < > -- < > 0.65 CALCIUM mg/dL -- 8.0* < > 7.8* < > -- < > 7.7* ALBUMIN g/dL -- -- -- 2.8* -- -- < > 3.3* ALK PHOS Units/L -- -- -- 84 -- -- < > 95 ALT Units/L -- -- -- 76* -- -- < > 183* AST Units/L -- -- -- 132* -- -- < > 218* BILIRUBIN TOTAL mg/dL -- -- -- 0.3 -- -- < > 0.5 WBC K/cumm 6.9 -- < > 11.1* -- 12.2* -- 11.4* HEMOGLOBIN, POC -- -- -- -- < > -- -- -- HEMOGLOBIN g/dL 8.7* -- < > 8.7* -- 10.2* -- 10.3* HEMATOCRIT % 25.8* -- < > 25.8* -- 29.4* -- 30.6* HEMATOCRIT POC -- -- -- -- < > -- -- -- PLATELETS K/cumm 208 -- < > 148* -- 180 -- 195 NEUTROS PCT % -- -- -- -- -- 77.4 -- -- LYMPHS PCT % -- -- -- -- -- 11.2 -- -- MONOS PCT % -- -- -- -- -- 7.3 -- -- EOS PCT % -- -- -- -- -- 3.0 -- -- APTT sec -- -- -- -- -- -- -- 26* INR -- -- -- -- -- -- -- 1.04 < > = values in this interval not displayed. Micro: Lab Results Component Value Date MICROBIOLOGY (.) 12/02/2023 Preliminary Report: Rare Staphylococcus epidermidis Susceptibility testing results to follow. [x] custom TLSO (okay to be OOB w/o TLSO until arrives, once here okay to take off in bed) - TV texted [ ] upright scolis (not ordered) [ ] d/c bedoya and void trial when mobilizing [x] Lvx POD2 (12/03) [X] needs bone stimulator (tasked) 12/01: OR 12/02 RADIOLOGY ASST dc'd. Patient had a run of Vtach, Mg and Ph checked, metop resumed. 12/02-: Please see significant event no by me as well as note from Dr. Michelle, patient transferredto the SICU overnight after act called for tachycardia with significant hypotension Consults: None Meds: Multimodal pain Results: N/A Drains / bedoya: Deep/superficial AUDREY x1 / Continue bedoya ASA / PLX / Anticoag: SCDs. Lvx POD2 Incision / Brace: monocryl, dermabond, tegaderm /custom TLSO brace Dispo / FU: Scheduled for 12/22 at 12p with Miguel Angel RN for wound check, 01/04 at 740a with Miguel Angel Please call with questions during daytime. See below for overnight issues. If you know the resident's name on the appropriate orthopaedic surgery team, please use [email or web address] to page resident directly. If questions arise and the appropriate resident can't be reached or you are calling overnight, please contact [phone] (North- 7:30 PM - 6:30 AM - Floor Resident) or [phone] (24 hours/day - Consult Resident) Cosigned by Rg Sultana MD at 12/22/2023 4:01 PM CDT * Sydnee Collier NP - 12/07/2023 6:35 AM CDTAssociated Order(s): Critical Care Post-Procedure Diagnose(s): Atrial fibrillation with RVR (CMS/HCC) (HCC) Surgical ICU Daily Progress Team: Blue AM 3 Subjective Patient is a 78 y.o. female admitted on 12/02/2023 6:42 AM with chief complaint of [id number] PSF. PMH: Hypertension, Hyperlipidemia, CAD, CHF, RBBB, A-fib with dual lead ICD, chronic pain, PALA withcochlear implant Interval History: - ramelteon - increase robaxin 750 q8h - resume home statin - amiodarone load - f/u re: anticoagulation with Ortho, cards - void trial tomorrow, holding flomax with c/f hypotension - TTF Hospital Course/Events/Procedures: 12/01: [id number] PSIF, TTF post op 12/02: (pm) afib rvr/SVT, rates to 160's, received 325 mg ASA & SL NTG 2/2 c/f STEMI, became hypotensive, amio bolus + gtt, emergency DCCV, HR briefly 70-80's then 120-130's, TTSICU 12/03: Cardiology c/s, AF with RVR overnight, amio bolus x 2 and restart gtt 12/05: transition to PO amio, borderline BPs with initiation of metoprolol 12/06: afib RVR overnight, amio bolus x1, increase PO amio Objective Physical Exam: Generalized: elderly adult female in no acute distress Neuro: AXO-4, TINO, follow commands, PERRL. 5/5 BUE, 4/5 LLE, 5/5 RLE CV: S1S2, RRR PULM: clear lung sounds bilateral GI: Soft/NT/ND/normoactive BS : Bedoya Extremities: No edema, pulses X4 palpable Drains: AUDREY x1 with serosanguineous output Wounds/Incisions: see LDA Medications Scheduled Meds:acetaminophen, 1,000 mg, oral, Q6H ELAINA alendronate, 70 mg, oral, Q7 Days amiodarone, 400 mg, oral, BID bisacodyL, 10 mg, rectal, Daily cholecalciferol, 2,000 Units, oral, QAM DULoxetine DR, 60 mg, oral, QAM enoxaparin, 40 mg, subcutaneous, Daily-2100 lidocaine, 2 patch, transdermal, Daily methocarbamoL, 500 mg, oral, Q8H multivitamin therapeutic, 1 tablet, oral, Daily pantoprazole DR, 40 mg, oral, Daily senna-docusate, 2 tablet, oral, BID sodium chloride 0.9%, 0.5-20 mL, intra-catheter, Q8H [facility] Continuous Infusions: PRN Meds:. bisacodyl EC sodium chloride 0.9% doxepin fluticasone propionate HYDROmorphone magnesium hydroxide mineral oil naloxone ondansetron oxyCODONE prochlorperazine simethicone sodium chloride 0.9% Vital signs for last 24 hours: Temp: [36.4 ??C (97.5 ??F)-36.5 ??C (97.7 ??F)] 36.5 ??C (97.7 ??F) Pulse: [66-137] 66 BP: (91-130)/(31-67) 110/49 Resp: [11-19] 11 SpO2: [84 %-100 %] 100 % Intake/Output: Intake/Output Summary (Last 24 hours) at 12/07/2023 0635 Last data filed at 12/07/2023 0600 Gross per 24 hour Intake 1767.5 ml Output 2856 ml Net -1088.5 ml Lab/Radiology/Diagnostic Review: Laboratory review: Lab results in the last 24 hours: Recent Results (from the past 24 hour(s)) Basic metabolic panel Collection Time: 12/06/23 8:51 PM Result Value Ref Range Sodium 137 135 - 145 mmol/L Potassium, pl 4.2 3.3 - 4.9 mmol/L Chloride 104 97 - 110 mmol/L CO2 25 22 - 32 mmol/L Anion gap 8 2 - 15 mmol/L BUN 6 6 - 25 mg/dL Creatinine 0.62 0.60 - 1.10 mg/dL Glucose 93 70 - 199 mg/dL Calcium 8.0 (L) 8.5 - 10.3 mg/dL Magnesium Collection Time: 12/06/23 8:51 PM Result Value Ref Range Magnesium 2.1 1.4 - 2.5 mg/dL Phosphorus Collection Time: 12/06/23 8:51 PM Result Value Ref Range Phosphorus, pl 2.6 2.3 - 4.5 mg/dL Calcium, ionized Collection Time: 12/06/23 8:51 PM Result Value Ref Range Calcium, Ionized 4.37 (L) 4.50 - 5.10 mg/dL eGFR Collection Time: 12/06/23 8:51 PM Result Value Ref Range eGFR >90 >=60 mL/min/1.73 m2 CBC without differential Collection Time: 12/06/23 10:24 PM Result Value Ref Range WBC 6.9 3.8 - 9.9 K/cumm Hgb 8.7 (L) 11.9 - 15.5 g/dL Hct 25.8 (L) 35.6 - 45.5 % Plt 208 150 - 400 K/cumm MPV 10.1 9.1 - 12.3 fL RBC 2.92 (L) 3.90 - 5.20 M/cumm MCV 88.4 81.3 - 96.4 fL MCH 29.8 27.1 - 33.3 pg MCHC 33.7 32.3 - 35.7 g/dL RDW CV 15.3 (H) 11.1 - 14.9 % RDW SD 49.3 (H) 35.7 - 48.1 fL NRBC abs 0.00 0.00 - 0.01 K/cumm Recent Results (from the past 12 hour(s)) Basic metabolic panel Collection Time: 12/06/23 8:51 PM Result Value Ref Range Sodium 137 135 - 145 mmol/L Potassium, pl 4.2 3.3 - 4.9 mmol/L Chloride 104 97 - 110 mmol/L CO2 25 22 - 32 mmol/L Anion gap 8 2 - 15 mmol/L BUN 6 6 - 25 mg/dL Creatinine 0.62 0.60 - 1.10 mg/dL Glucose 93 70 - 199 mg/dL Calcium 8.0 (L) 8.5 - 10.3 mg/dL Magnesium Collection Time: 12/06/23 8:51 PM Result Value Ref Range Magnesium 2.1 1.4 - 2.5 mg/dL Phosphorus Collection Time: 12/06/23 8:51 PM Result Value Ref Range Phosphorus, pl 2.6 2.3 - 4.5 mg/dL Calcium, ionized Collection Time: 12/06/23 8:51 PM Result Value Ref Range Calcium, Ionized 4.37 (L) 4.50 - 5.10 mg/dL eGFR Collection Time: 12/06/23 8:51 PM Result Value Ref Range eGFR >90 >=60 mL/min/1.73 m2 CBC without differential Collection Time: 12/06/23 10:24 PM Result Value Ref Range WBC 6.9 3.8 - 9.9 K/cumm Hgb 8.7 (L) 11.9 - 15.5 g/dL Hct 25.8 (L) 35.6 - 45.5 % Plt 208 150 - 400 K/cumm MPV 10.1 9.1 - 12.3 fL RBC 2.92 (L) 3.90 - 5.20 M/cumm MCV 88.4 81.3 - 96.4 fL MCH 29.8 27.1 - 33.3 pg MCHC 33.7 32.3 - 35.7 g/dL RDW CV 15.3 (H) 11.1 - 14.9 % RDW SD 49.3 (H) 35.7 - 48.1 fL NRBC abs 0.00 0.00 - 0.01 K/cumm XR Abdomen Ap 1 Vw Result Date: 12/06/2023 A single view of the abdomen is submitted for evaluation. Posterior fusion instrumentation is noted. Bilateral total hip arthroplasties. Surgical clips are seen in the right upper quadrant. Normal bowel gas pattern. Air is seen throughout dilated small bowel and colon. Electronically signed by: Antoine Chisholm M.D. Assessment/Plan Principal Problem: Pseudoarthrosis of lumbar spine Active Problems: Dyslipidemia Chronic nonseasonal allergic rhinitis due to pollen Major depressive disorder, single episode, moderate (HCC) Essential hypertension Paroxysmal atrial fibrillation (CMS/HCC) (HCC) Fusion of spine of lumbar region ICD (implantable cardioverter-defibrillator), dual, in situ NEURO: #Acute pain - ELAINA tylenol 1000mg Q6H - ELAINA robaxin 750mg Q8H - Lidocaine patches - PRN oxycodone 7.5mg Q3H - PRN dilaudid 0.2mg Q4H - Pain goal < 4 #Thoracolumbar pseudoarthrosis, chronic - 12/01: s/p [id number] PSF revision - Ortho spine primary - Q4H NC - Monitor AUDREY output - Brace per Ortho spine - PT/OT - Per Ortho spine, no therapeutic AC until POD 30 #Anxiety, chronic #Depression, chronic - Continue home cymbalta - Holding home doxepin, prn ativan #PALA, chronic - s/p cochlear implant CV: #Afib with RVR on chronic paroxysmal Afib - 12/02: AF with RVR and ACT called. DCCV with brief conversion to paced rhythm before reverting backin AF with rates 110-120's. Given amio bolus - 12/03: AF with RVR again overnight, amio bolus x 2 and started on amio gtt - pt has [employer] dual lead PPM with ICD in place. Back up rate 60 - 12/06: Afib RVR overnight with amio bolus x1 - Continue PO amio load - Holding metoprolol 2/2 hypotension when initiated - Cardiology following - Touched base again with Ortho Spine today; no therapeutic AC until POD 30 - Continuous tele, optimize electrolytes #Hypertrophic cardiomyopathy, chronic - 12/03 TTE: EF 76%, LV cavity size normal with hyperdynamic function, moderate lateral and septal apical hypertrophy suggesting apical varient HCM, no apical aneurysm, no LVOT obstruction, LA mildly dilated, normal RV cavity size and function, mild MR, mild TR, estimated PASP 25 mmHg + RAP (3), normal diastolic function - [employer] dual lead PPM with ICD in place. Back up rate 60 - Holding home lasix - Cardiology following PULM: Currently on room air Encourage pulmonary hygiene, IS SpO2 goal > 92% GI: #GERD, chronic - Continue home protonix Diet: cardiac Bowel regimen: pericolace, dulcolax ENDO: Euglycemic RENAL: #Urinary retention - failed void trial 12/04 - holding flomax with c/f hypotension - Void trial tomorrow Lab Results Component Value Date CREATININE 0.62 12/06/2023 HEME: #ABLA -No s/s bleeding, no indication for transfusion, continue to monitor closely Lab Results Component Value Date HGB 8.7 (L) 12/06/2023 LED: no recent noted DVT ppx: lovenox ID: Monitor WBC trend, fever curve Lab Results Component Value Date WBC 6.9 12/06/2023 ICU Standards of Care Vascular access: PIVs Goals of Care: Full code Assessment and plan has been reviewed with the ICU attending and fellow. Sydnee Collier [facility] Critical Care Performed by: Sydnee Collier NP Authorized by: Sydnee Collier NP CRITICAL CARE: Team: SICU BLUE Shift: AM Level of Billing: Subsequent Hospital Visit Level 3 My time spent with this patient was 60 minutes: Critical Provider Statement: I have seen and examined the patient on this day of service. I have reviewed and confirmed the history, physical exam, laboratory, and radiographic data as documented in the ICU note. I have reviewed and discussed my treatment plan with the patient's team and other medical/lead consultant staff. This time was in addition to and separate from care provided by other practitioners on this day of service. I spent time reviewing and interpreting data from bedside monitors, laboratory results, and imagingand I spent time documenting in the medical record Cosigned by Rachel Colorado MD at 12/08/2023 7:52 AM CDT * Chinyere Abreu NP - 12/06/2023 6:41 PM CDTAssociated Order(s): Critical Care Post-Procedure Diagnose(s): Atrial fibrillation with RVR (CMS/HCC) (HCC) Surgical ICU Daily Progress Note Team: Blue PM Subjective Patient is a 78 y.o. female admitted on 12/02/2023 6:42 AM with chief complaint of atrial fibrillation with RVR. Interval History: - replete calcium - A fib with RVR -> amio bolus x 1 - Reviewed and ordered pertinent laboratory tests. Reviewed any radiological imaging pertinent to patients current treatments. Ongoing evaluation of I/O's, vitals and oxygen requirements throughout shift. Multiple bedside evaluations of patients over all status. Objective Physical Exam: Neuro: rouses to voice, PALA, A&O x 4, follows commands, REED, 5/5 BUE, 4/5 BLE, PERRl CV: rate controled atrial fibrillation, extremities warm, palpable DP and radial pulses BLE, 2+ edema Pulm: CTAB ABD: normoactive BS, soft, NT/ND Skin: surgical incision to back c/d/i Drains: AUDREY Bedoya x 1 to back Medications Scheduled Meds:acetaminophen, 1,000 mg, oral, Q6H ELAINA [START ON 12/07/2023] alendronate, 70 mg, oral, Q7 Days amiodarone, 400 mg, oral, BID bisacodyL, 10 mg, rectal, Daily cholecalciferol, 2,000 Units, oral, QAM DULoxetine DR, 60 mg, oral, QAM enoxaparin, 40 mg, subcutaneous, Daily-2100 lidocaine, 2 patch, transdermal, Daily methocarbamoL, 500 mg, oral, Q8H multivitamin therapeutic, 1 tablet, oral, Daily pantoprazole DR, 40 mg, oral, Daily senna-docusate, 2 tablet, oral, BID sodium chloride 0.9%, 0.5-20 mL, intra-catheter, Q8H ELAINA Continuous Infusions: PRN Meds:. bisacodyl EC sodium chloride 0.9% doxepin fluticasone propionate HYDROmorphone magnesium hydroxide mineral oil naloxone ondansetron oxyCODONE prochlorperazine sodium chloride 0.9% Vital signs for last 24 hours: Temp: [36.4 ??C (97.5 ??F)-36.8 ??C (98.2 ??F)] 36.4 ??C (97.5 ??F) Pulse: [66-84] 70 BP: (91-121)/(31-66) 91/53 Resp: [11-23] 18 SpO2: [89 %-100 %] 99 % Arterial Line BP: (71-144)/(39-75) 71/54 Hemodynamics: MAP (mmHg): [45-73] 64 Pulmonary Support: O2 Therapy: Supplemental oxygen O2 Del Method: Nasal cannula O2 Flow Rate (L/min): 2 L/min Intake/Output: Intake/Output Summary (Last 24 hours) at 12/06/2023 1841 Last data filed at 12/06/2023 1800 Gross per 24 hour Intake 2150.23 ml Output 2303 ml Net -152.77 ml Labs and images reviewed: Laboratory review: Lab results in the last 12 hours: No results found for this or any previous visit (from the past 12 hour(s)). Recent Results (from the past 24 hour(s)) Basic metabolic panel Collection Time: 12/06/23 8:51 PM Result Value Ref Range Sodium 137 135 - 145 mmol/L Potassium, pl 4.2 3.3 - 4.9 mmol/L Chloride 104 97 - 110 mmol/L CO2 25 22 - 32 mmol/L Anion gap 8 2 - 15 mmol/L BUN 6 6 - 25 mg/dL Creatinine 0.62 0.60 - 1.10 mg/dL Glucose 93 70 - 199 mg/dL Calcium 8.0 (L) 8.5 - 10.3 mg/dL Magnesium Collection Time: 12/06/23 8:51 PM Result Value Ref Range Magnesium 2.1 1.4 - 2.5 mg/dL Phosphorus Collection Time: 12/06/23 8:51 PM Result Value Ref Range Phosphorus, pl 2.6 2.3 - 4.5 mg/dL Calcium, ionized Collection Time: 12/06/23 8:51 PM Result Value Ref Range Calcium, Ionized 4.37 (L) 4.50 - 5.10 mg/dL eGFR Collection Time: 12/06/23 8:51 PM Result Value Ref Range eGFR >90 >=60 mL/min/1.73 m2 XR Chest 1 View Result Date: 12/04/2023 The current study is compared with the prior radiograph dated 09/29/2023 An atrio-ventricular pacerdevice is in place with leads overlying expected position. Heart is upper limits of normal in size There is no pneumothorax.. No effusions no mass or lymphadenopathy. There may be trace interstitial edema. Electronically signed by: aCmelia Mckeon M.D. Assessment/Plan Principal Problem: Pseudoarthrosis of lumbar spine Active Problems: Dyslipidemia Chronic nonseasonal allergic rhinitis due to pollen Major depressive disorder, single episode, moderate (HCC) Essential hypertension Paroxysmal atrial fibrillation (CMS/HCC) (HCC) Fusion of spine of lumbar region ICD (implantable cardioverter-defibrillator), dual, in situ Plan of care: NEURO: #Acute pain: - 2/2 surgical procedure, pt reports back pain and spasms - scheduled acetaminophen, robaxin - PRN oxycodone - PRN dilaudid - lidocaine patches - frequent reassessment of pain #Thoracolumbar pseudoarthrosis: - 12/01: revision [id number] PSF - q4 hour neuromotor checks - monitor drain output - brace per ortho spine - pain control - Ortho spine following -> no therapeutic anticoagulation until POD 30 #Anxiety #Depression: - chronic - continue home duloxetine - holding home PRN ativan CV: #Atrial fibrillation with RVR on chronic paroxysmal AF: - 12/02: AF with RVR and ACT called. DCCV with brief conversion to paced rhythm before reverting backin AF with rates 110-120's. Given amio bolus - 12/03: AF with RVR again overnight, amio bolus x 2 and started on amio gtt - pt has [employer] dual lead PPM with ICD in place. Back up rate 60 - TTE as noted below - continue PO amio - holding metoprolol due to soft BPs today when metoprolol initiated - pt with AF with RVR overnight -> amio bolus x 1 and converted - cardiology following - per ortho spine: no therapeutic anticoagulation until POD 30 #Hypertrophic cardiomyopathy: - chronic - 12/03 TTE: EF 76%, LV cavity size normal with hyperdynamic function, moderate lateral and septal apical hypertrophy suggesting apical varient HCM, no apical aneurysm, no LVOT obstruction, LA mildly dilated, normal RV cavity size and function, mild MR, mild TR, estimated PASP 25 mmHg + RAP (3), normal diastolic function - ICD in place as noted above - holding home lasix - cardiology following PULM: #Acute respiratory insufficiency: - currently on 2L nasal cannula - wean O2 for sats >92% - encourage pulmonary hygiene - OOB daily, PT/OT GI: #GERD: - chronic - continue protonix Diet: cardiac diet Bowel regimen: pericolace, dulcolax ENDO: Euglycemic RENAL: BUN/Cr 6/0.62 - Bedoya, q1 hour I&O monitoring - failed void trial 12/04 - daily BMP #Hypocalcemia: - iCa 4.37 - 3g calcium gluconate HEME: #Acute blood loss anemia: - 2/2 surgical procedure with component of dilution - H/H 8.7/25.8 - Plt 208 - no indication for transfusion at this time - daily CBC ID: WBC 6.9 - afebrile - no indication for antibiotics at this time Intensive Care Unit Standards of Care: DVT prophylaxis: SCDs, continue lovenox Vascular access: PIVs Code status: Full code Assessment and plan has been reviewed with ICU attending. Chinyere Abreu NP Critical Care Performed by: Chinyere Abreu NP Authorized by: Chinyere Abreu NP CRITICAL CARE: Team: SICU BLUE Shift: PM Level of Billing: Subsequent Hospital Visit Level 3 My time spent with this patient was 65 minutes: Critical Provider Statement: I have seen and examined the patient on this day of service. I have reviewed and confirmed the history, physical exam, laboratory, and radiographic data as documented in the ICU note. I have reviewed and discussed my treatment plan with the patient's team and other medical/lead consultant staff. This time was in addition to and separate from care provided by other practitioners on this day of service. Cosigned by Robert Shetty MD at 12/07/2023 7:01 PM CDT * Rose Marie Velazquez MD - 12/06/2023 9:11 AM CDT Orthopaedic Spine Service Daily Progress Note Admit Date: 12/02/2023 Hospital Day: 4 Michelle Dx: Pseudoarthrosis PMH: HTN, HLD, CAD, CHF, RBBB, A-fib with dual lead ICD, chronic pain, PALA with cochlear implant Proc: 12/01 Revision PSF [id number], decompression Exam: Normal motor exam. SILT. : 1945 Admit: 12/02/202312/05: POD4. AFVSS overnight. Remains in NSR, switched to oral amio this morning. Off norepi, pending hemodynamic stability x24 hours prior to resuming metoprolol. Stood with PT but did not ambulate yesterday 2/2 symptomatic hypotension. Has had bowel movement, flatus. KUB obtained yesterday demonstr ating normal gas pattern. D1 placed to gravity yesterday, output 67/217. H/H: 8.9/25.9, WBC: 9.5, Cr: 0.56, Lactate: -. Exam: Sitting upright in chair, TLSO in place. 11/28 BUE/BLE, SILT all dermatomes, dressing c/d/I. Bedoya in place. Plan for d/c bedoya and void trial when mobilizing, upright scoli XR when able, PT/OT. Edited by: Rose Marie Velazquez MD at 12/06/2023 0556 Objective Vitals: 24hr Min/Max: Temp Min: 36.6 ??C (97.9 ??F) Max: 37.1 ??C (98.8 ??F) Pulse Min: 60 Max: 81 BP Min: 93/38 Max: 120/54 Resp Min: 12 Max: 23 SpO2 Min: 92 % Max: 100 % I/O last 2 completed shifts: In: 3148.7 [P.O.:1240; I.V.:998.7; IV Piggyback:910] Out: 2003 [Urine:1767; Drains:237] I/O this shift: In: 25 [I.V.:25] Out: 141 [Urine:141] Physical Exam: Physical Exam: Gen: no acute distress Neuro: A&Ox3 Dressing: clean/dry/intact Wound Vac(s): Holding suction nicely, no apparent leaks Hemo Vac(s): Holding suction nicely, no apparent leaks Motor: Muscle Strength Right Left Shoulder abduction (C5) 5/5 5/5 Elbow flexion (C5/6) 5/5 5/5 Elbow extension (C7) 5/5 5/5 Wrist extension (C6) 5/5 5/5 Wrist flexion (C7) 5/5 5/5 Leave Manager (C8) 5/5 5/5 Interosseous of hand (T1) [...] [facility] Lab/Diagnostic Review: Recent Labs Lab Units 12/05/23193612/05/23 0554 12/04/23212712/03/23224512/03/23210612/03/23210412/03/23 0353 SODIUM mmol/L 135 < > 136 < > -- < > 141 POTASSIUM PLASMA mmol/L 3.7 < > 3.6 < > -- < > 4.2 CHLORIDE mmol/L 103 < > 104 < > -- < > 109 CO2 mmol/L 25 < > 26 < > -- < > 28 CO2 POC -- -- -- -- -- < > -- ANIONGAP mmol/L 7 < > 6 < > -- < > 4 GLUCOSE mg/dL 116 < > 146 < > -- < > 132 POC GLUCOSE MONITOR -- -- -- < > -- -- -- BUN SERUM mg/dL 5* < > 7 < > -- < > 12 CREATININE mg/dL 0.56* < > 0.54* < > -- < > 0.65 CALCIUM mg/dL 8.2* < > 7.8* < > -- < > 7.7* ALBUMIN g/dL -- -- 2.8* -- -- < > 3.3* ALK PHOS Units/L -- -- 84 -- -- < > 95 ALT Units/L -- -- 76* -- -- < > 183* AST Units/L -- -- 132* -- -- < > 218* BILIRUBIN TOTAL mg/dL -- -- 0.3 -- -- < > 0.5 WBC K/cumm 9.5 < > 11.1* -- 12.2* -- 11.4* HEMOGLOBIN, POC -- -- -- < > -- -- -- HEMOGLOBIN g/dL 8.9* < > 8.7* -- 10.2* -- 10.3* HEMATOCRIT % 25.9* < > 25.8* -- 29.4* -- 30.6* HEMATOCRIT POC -- -- -- < > -- -- -- PLATELETS K/cumm 173 < > 148* -- 180 -- 195 NEUTROS PCT % -- -- -- -- 77.4 -- -- LYMPHS PCT % -- -- -- -- 11.2 -- -- MONOS PCT % -- -- -- -- 7.3 -- -- EOS PCT % -- -- -- -- 3.0 -- -- APTT sec -- -- -- -- -- -- 26* INR -- -- -- -- -- -- 1.04 < > = values in this interval not displayed. Micro: Lab Results Component Value Date MICROBIOLOGY (.) 12/02/2023 Preliminary Report: Rare Staphylococcus epidermidis Susceptibility testing results to follow. Assessment and Plan: Macie Briseno is a 78 y.o. female with thoracolumbar pseudoarthrosis, now s/p revision [id number], T12/L1, L1/L2 PCOs. Post-operative course complicated by afib with RVR and hemodynamic instability, now stabilized in SICU. Appreciate ongoing SICU care. 12/05 tasks [ ] follow up anticoagulation plan, tentatively plan to hold eliquis x30 days [ ] follow up DOAC plan Additional tasks [x] custom TLSO (okay to be OOB w/o TLSO until arrives, once here okay to take off in bed) - TV texted [ ] upright scolis (not ordered) [ ] d/c bedoya and void trial when mobilizing [x] Lvx POD2 (12/03) [X] needs bone stimulator (tasked) Consults: None Meds: Multimodal pain Results: N/A Drains / bedoya: Deep/superficial AUDREY x1 / Continue bedoya ASA / PLX / Anticoag: SCDs. Lvx POD2 Incision / Brace: monocryl, dermabond, tegaderm /custom TLSO brace Dispo / FU: Scheduled for 12/22 at 12p with Miguel Angel HANEY for wound check, 01/04 at 740a with Miguel Angel Edited by: Rose Marie Velazquez MD at 12/06/2023 0556 Rose Marie Velazquez MD Orthopaedic Surgery PGY-2 For questions please reach out to: Abhijeet 7:30p-6:30a (Night Floor Resident): [phone] Consult Resident: [phone] Specific Resident: [email or web address] to page/call appropriate Orthopaedic Surgery Team/Resident Call Schedule: [facility] for [facility] Orthopaedic Surgery (pw: [facility]) For ortho primary adult patients, Thu - Thu 6a-6p: Call [phone] nurses station for PA/FIELD SERVICE REP ([phone]) For ortho primary pediatric patients, Thu - Thu 6a-6p: Call 10th floor nurses station for FIELD SERVICE REP Cosigned by Rg Sultana MD at 12/22/2023 4:01 PM CDT * Len Klein PA - 12/06/2023 6:18 AM CDTAssociated Order(s): Critical Care Post-Procedure Diagnose(s): Atrial fibrillation with RVR (CMS/HCC) (HCC) Images from the original note were not included. ICU Daily Progress Team: Blue AM Subjective Patient is a 78 y.o. female admitted to SICU from floor 2/2 afib RVR c/b hypotension requiring electrical cardioversion. Post-op day 2 from [id number] PSF. PMH: Hypertension, Hyperlipidemia, CAD, CHF, RBBB, A-fib with dual lead ICD, chronic pain, PALA withcochlear implant Interval History: - D/c baclofen, add robaxin & lidocaine patches - Transition to PO amio, d/c gtt - Low dose metop PO given this morning, did not tolerate 2/2 asymptomatic hypotension, UOP still adequate - Reviewed and ordered pertinent laboratory tests. Reviewed any radiological imaging pertinent to patients current treatments. Constant evaluation of I/O's, vitals and oxygen requirements throughout shift. Multiple bedside evaluations of patients over all status. Brief Hospital Course: 12/01: [id number] PSIF 12/02: (pm) afib rvr/SVT, rates to 160's, received 325 mg ASA & SL NTG 2/2 c/f STEMI, became hypotensive, amio bolus + gtt, emergency DCCV, HR briefly 70-80's then 120-130's, TTSICU 12/03: Cardiology c/s Objective Physical Exam: Physical Exam Constitutional: General: She is awake. She is not in acute distress. Appearance: She is not ill-appearing or diaphoretic. Cardiovascular: Rate and Rhythm: Normal rate and regular rhythm. Pulses: Normal pulses. Heart sounds: No murmur heard. No friction rub. Pulmonary: Effort: Pulmonary effort is normal. No respiratory distress. Abdominal: General: There is no distension. Palpations: Abdomen is soft. Tenderness: There is no abdominal tenderness. Skin: General: Skin is warm and dry. Neurological: Mental Status: She is alert and oriented to person, place, and time. Mental status is at baseline. Medications Scheduled Meds:acetaminophen, 1,000 mg, oral, Q6H ELAINA [START ON 12/07/2023] alendronate, 70 mg, oral, Q7 Days amiodarone, 400 mg, oral, BID baclofen, 2.5 mg, oral, TID with meals bisacodyL, 10 mg, rectal, Daily cholecalciferol, 2,000 Units, oral, QAM DULoxetine DR, 60 mg, oral, QAM enoxaparin, 40 mg, subcutaneous, Daily-2100 multivitamin therapeutic, 1 tablet, oral, Daily pantoprazole DR, 40 mg, oral, Daily senna-docusate, 2 tablet, oral, BID sodium chloride 0.9%, 0.5-20 mL, intra-catheter, Q8H ELAINA Continuous Infusions:amiodarone, 0.5 mg/min, Last Rate: 0.5 mg/min (12/06/23 0600) dextrose 5% and Lactated Ringer's, 25 mL/hr, Last Rate: 25 mL/hr (12/06/23 0600) sodium chloride 0.9%, 3-12 mL/hr, Last Rate: 3 mL/hr (12/06/23 0600) PRN Meds:. bisacodyl EC sodium chloride 0.9% doxepin fluticasone propionate HYDROmorphone magnesium hydroxide mineral oil naloxone ondansetron oxyCODONE prochlorperazine sodium chloride 0.9% Vital signs for last 24 hours: Temp: [36.6 ??C (97.9 ??F)-37.1 ??C (98.8 ??F)] 36.8 ??C (98.2 ??F) Pulse: [60-77] 72 BP: (93-120)/(33-60) 120/54 Resp: [12-23] 12 SpO2: [92 %-100 %] 100 % Arterial Line BP: (71-148)/(39-75) 71/54 Hemodynamics: MAP (mmHg): [49-68] 68 Pulmonary Support: O2 Therapy: Supplemental oxygen O2 Del Method: Nasal cannula O2 Flow Rate (L/min): 2 L/min Intake/Output: Intake/Output Summary (Last 24 hours) at 12/06/2023 0618 Last data filed at 12/06/2023 0600 Gross per 24 hour Intake 3148.73 ml Output 2004 ml Net 1144.73 ml Labs reviewed: Recent Results (from the past 12 hour(s)) CBC without differential Collection Time: 12/05/23 7:37 PM Result Value Ref Range WBC 9.5 3.8 - 9.9 K/cumm Hgb 8.9 (L) 11.9 - 15.5 g/dL Hct 25.9 (L) 35.6 - 45.5 % Plt 173 150 - 400 K/cumm MPV 10.3 9.1 - 12.3 fL RBC 3.02 (L) 3.90 - 5.20 M/cumm MCV 85.8 81.3 - 96.4 fL MCH 29.5 27.1 - 33.3 pg MCHC 34.4 32.3 - 35.7 g/dL RDW CV 15.0 (H) 11.1 - 14.9 % RDW SD 47.6 35.7 - 48.1 fL NRBC abs 0.00 0.00 - 0.01 K/cumm Magnesium Collection Time: 12/05/23 7:37 PM Result Value Ref Range Magnesium 2.2 1.4 - 2.5 mg/dL Phosphorus Collection Time: 12/05/23 7:37 PM Result Value Ref Range Phosphorus, pl 2.3 2.3 - 4.5 mg/dL Basic metabolic panel Collection Time: 12/05/23 7:37 PM Result Value Ref Range Sodium 135 135 - 145 mmol/L Potassium, pl 3.7 3.3 - 4.9 mmol/L Chloride 103 97 - 110 mmol/L CO2 25 22 - 32 mmol/L Anion gap 7 2 - 15 mmol/L BUN 5 (L) 6 - 25 mg/dL Creatinine 0.56 (L) 0.60 - 1.10 mg/dL Glucose 116 70 - 199 mg/dL Calcium 8.2 (L) 8.5 - 10.3 mg/dL Calcium, ionized Collection Time: 12/05/23 7:37 PM Result Value Ref Range Calcium, Ionized 4.44 (L) 4.50 - 5.10 mg/dL Lactate, whole blood Collection Time: 12/05/23 7:37 PM Result Value Ref Range Lactate, bld 0.8 0.7 - 2.0 mmol/L eGFR Collection Time: 12/05/23 7:37 PM Result Value Ref Range eGFR >90 >=60 mL/min/1.73 m2 Imaging reviewed: XR Scoliosis Ap Lat Result Date: 12/02/2023 1. Intraoperative radiographs demonstrating ongoing posterior instrumented spinal fusion revision. Electronically signed by: Edgar Pichardo M.D. Assessment/Plan: Neurologic: # Acute Post-op Pain: - ELAINA APAP, robaxin - PRN oxy, dilaudid - Lidocaine patches # Depression, chronic # Anxiety, chronic - Home duloxetine # Thoracolumbar Pseudoarthrosis, POA S/p multiple previous spine surgeries now s/p (12/01) [id number] PSIF - Ortho-spine primary - Follow drain output Cardiovascular: # Elevated Troponin Troponin 94 > 14,000, downtrended # Acute Afib RVR/SVT # Paroxysmal atrial fibrillation, chronic Home meds: dilt-XR 180 mg daily, lasix 40 mg BID, metop 25 mg IR BID, Eliquis 5 mg BID. S/p [employer] dual lead AV ICD w/ pacing function placement 05/2021 for VT/VF primary prevention - Cardiology following - S/p DCCV 12/02 during ACT w/ brief conversion to paced rhythm before reverting back into irregularrhythm w/ rates 110's-120's. Given amio bolus, gtt started - Continue PO amio - 12/05: did not tolerate PO metop 6.25 mg x 1 2/2 hypotension - Optimize electrolytes - TTE ordered # RBBB, chronic # AV block, 2nd Degree, chronic # Hypertrophic Cardiomyopathy, chronic Follows w/ [facility] Dr. Talbert, [facility] [address] Dr. Recio - AICD in place - EKG in 07/2023 in sinus rhythm; 12/02 1400 NSR, 12/02 (pm) Afib with RVR w/ hypotension requiring electrical cardioversion, amio bolus/infusion - Cardiology following Pulmonary: # Acute respiratory insufficiency 2/2 afib RVR/SVT - Currently on 4L NC - Wean for spo2>92% GI: Diet: Regular diet RENAL: - Bedoya in place w/ adequate UOP HEME: DVT PPx: lovenox # ABLA 2/2 surgery - Hgb stable, monitor daily CBC, transfuse for Hgb <7 and/or hemodynamic instability w/ active bleeding ID: # Leukocytosis Likely reactive - Postop abx complete - Trend WBC, monitor fever curve Intensive Care Unit Standards of Care: Diet: regular Restraints: n/a Vascular access: PIV, radial elmira Goals of care: full code Assessment and plan has been reviewed with ICU fellow and attending. Len Klein PA-C Critical Care Performed by: Len Klein PA Authorized by: Len Klein PA CRITICAL CARE: Team: SICU BLUE Shift: AM Level of Billing: Critical Care My time spent with this patient was 75 minutes: Critical Provider Statement: I have seen and examined the patient on this day of service. I have reviewed and confirmed the history, physical exam, laboratory and radiologic data as documented in thesigned ICU note. I have reviewed and discussed my treatment plan with the ICU team and other medical/lead consultant staff, making frequent assessments and decisions regarding this patient's complex medical care. Critical Care time was exclusive of time spent performing separately billed procedures, treating other patients, and teaching. This time was in addition to and separate from critical care provided by other practitioners in my group on this day of service. Critical Care was necessary to treat or prevent imminent or life-threatening deterioration of the following conditions: I spent time reviewing and interpreting data from bedside monitors, laboratory results, and imaging, I spent time discussing the management of this critically ill patient with consultants and the medical staff and I spent time documenting in the medical record Cosigned by Rachel Colorado MD at 12/06/2023 1:52 PM CDT * Chinyere Abreu NP - 12/05/2023 7:00 PM CDTAssociated Order(s): Critical Care Post-Procedure Diagnose(s): Atrial fibrillation with RVR (CMS/HCC) (HCC) Surgical ICU Daily Progress Note Team: Blue PM Subjective Patient is a 78 y.o. female admitted on 12/02/2023 6:42 AM with chief complaint of atrial fibrillation with RVR. Interval History: - no acute events overnight - replete potassium and calcium - pt unable to void x 2, Beodya replaced - Reviewed and ordered pertinent laboratory tests. Reviewed any radiological imaging pertinent to patients current treatments. Ongoing evaluation of I/O's, vitals and oxygen requirements throughout shift. Multiple bedside evaluations of patients over all status. Objective Physical Exam: Neuro: rouses to voice, PALA, A&O x 4, follows commands, REED, 5/5 BUE, 4/5 BLE, PERRl CV: rate controled atrial fibrillation, extremities warm, palpable DP and radial pulses BLE, 2+ edema Pulm: CTAB ABD: normoactive BS, soft, NT/ND Skin: surgical incision to back c/d/I Drains: Bedoya, AUDREY x 1 to back Medications Scheduled Meds:acetaminophen, 1,000 mg, oral, Q6H ELAINA [START ON 12/07/2023] alendronate, 70 mg, oral, Q7 Days baclofen, 2.5 mg, oral, TID with meals bisacodyL, 10 mg, rectal, Daily cholecalciferol, 2,000 Units, oral, QAM DULoxetine DR, 60 mg, oral, QAM enoxaparin, 40 mg, subcutaneous, Daily-2100 multivitamin therapeutic, 1 tablet, oral, Daily pantoprazole DR, 40 mg, oral, Daily senna-docusate, 2 tablet, oral, BID sodium chloride 0.9%, 0.5-20 mL, intra-catheter, Q8H ELAINA Continuous Infusions:amiodarone, 0.5 mg/min, Last Rate: 0.5 mg/min (12/05/23 1800) amiodarone, 0.5 mg/min dextrose 5% and Lactated Ringer's, 25 mL/hr, Last Rate: 25 mL/hr (12/05/23 0600) sodium chloride 0.9%, 3-12 mL/hr, Last Rate: 3 mL/hr (05/11/24 0600) PRN Meds:. bisacodyl EC sodium chloride 0.9% doxepin fluticasone propionate HYDROmorphone magnesium hydroxide mineral oil naloxone ondansetron oxyCODONE prochlorperazine sodium chloride 0.9% Vital signs for last 24 hours: Temp: [36.6 ??C (97.9 ??F)-37.7 ??C (99.9 ??F)] 36.7 ??C (98.1 ??F) Pulse: [60-144] 64 BP: (93-133)/(38-69) 93/38 Resp: [12-31] 18 SpO2: [87 %-100 %] 98 % Arterial Line BP: (86-151)/(34-55) 138/46 Hemodynamics: MAP (mmHg): [49-73] 49 Pulmonary Support: O2 Therapy: None (Room air) O2 Del Method: Nasal cannula O2 Flow Rate (L/min): 3 L/min Intake/Output: Intake/Output Summary (Last 24 hours) at 12/05/2023 1901 Last data filed at 12/05/2023 1800 Gross per 24 hour Intake 3401.1 ml Output 2097 ml Net 1304.1 ml Labs and images reviewed: Laboratory review: Lab results in the last 12 hours: No results found for this or any previous visit (from the past 12 hour(s)). Recent Results (from the past 24 hour(s)) Basic metabolic panel Collection Time: 12/05/23 5:54 AM Result Value Ref Range Sodium 139 135 - 145 mmol/L Potassium, pl 3.3 3.3 - 4.9 mmol/L Chloride 104 97 - 110 mmol/L CO2 27 22 - 32 mmol/L Anion gap 8 2 - 15 mmol/L BUN 5 (L) 6 - 25 mg/dL Creatinine 0.54 (L) 0.60 - 1.10 mg/dL Glucose 117 70 - 199 mg/dL Calcium 7.1 (L) 8.5 - 10.3 mg/dL Magnesium Collection Time: 12/05/23 5:54 AM Result Value Ref Range Magnesium 2.1 1.4 - 2.5 mg/dL Phosphorus Collection Time: 12/05/23 5:54 AM Result Value Ref Range Phosphorus, pl 3.1 2.3 - 4.5 mg/dL CBC without differential Collection Time: 12/05/23 5:54 AM Result Value Ref Range WBC 9.7 3.8 - 9.9 K/cumm Hgb 8.6 (L) 11.9 - 15.5 g/dL Hct 24.9 (L) 35.6 - 45.5 % Plt 168 150 - 400 K/cumm MPV 10.1 9.1 - 12.3 fL RBC 2.88 (L) 3.90 - 5.20 M/cumm MCV 86.5 81.3 - 96.4 fL MCH 29.9 27.1 - 33.3 pg MCHC 34.5 32.3 - 35.7 g/dL RDW CV 15.0 (H) 11.1 - 14.9 % RDW SD 47.2 35.7 - 48.1 fL NRBC abs 0.00 0.00 - 0.01 K/cumm eGFR Collection Time: 12/05/23 5:54 AM Result Value Ref Range eGFR >90 >=60 mL/min/1.73 m2 CBC without differential Collection Time: 12/05/23 7:37 PM Result Value Ref Range WBC 9.5 3.8 - 9.9 K/cumm Hgb 8.9 (L) 11.9 - 15.5 g/dL Hct 25.9 (L) 35.6 - 45.5 % Plt 173 150 - 400 K/cumm MPV 10.3 9.1 - 12.3 fL RBC 3.02 (L) 3.90 - 5.20 M/cumm MCV 85.8 81.3 - 96.4 fL MCH 29.5 27.1 - 33.3 pg MCHC 34.4 32.3 - 35.7 g/dL RDW CV 15.0 (H) 11.1 - 14.9 % RDW SD 47.6 35.7 - 48.1 fL NRBC abs 0.00 0.00 - 0.01 K/cumm Magnesium Collection Time: 12/05/23 7:37 PM Result Value Ref Range Magnesium 2.2 1.4 - 2.5 mg/dL Phosphorus Collection Time: 12/05/23 7:37 PM Result Value Ref Range Phosphorus, pl 2.3 2.3 - 4.5 mg/dL Basic metabolic panel Collection Time: 12/05/23 7:37 PM Result Value Ref Range Sodium 135 135 - 145 mmol/L Potassium, pl 3.7 3.3 - 4.9 mmol/L Chloride 103 97 - 110 mmol/L CO2 25 22 - 32 mmol/L Anion gap 7 2 - 15 mmol/L BUN 5 (L) 6 - 25 mg/dL Creatinine 0.56 (L) 0.60 - 1.10 mg/dL Glucose 116 70 - 199 mg/dL Calcium 8.2 (L) 8.5 - 10.3 mg/dL Calcium, ionized Collection Time: 12/05/23 7:37 PM Result Value Ref Range Calcium, Ionized 4.44 (L) 4.50 - 5.10 mg/dL Lactate, whole blood Collection Time: 12/05/23 7:37 PM Result Value Ref Range Lactate, bld 0.8 0.7 - 2.0 mmol/L eGFR Collection Time: 12/05/23 7:37 PM Result Value Ref Range eGFR >90 >=60 mL/min/1.73 m2 XR Chest 1 View Result Date: 12/04/2023 The current study is compared with the prior radiograph dated 09/29/2023 An atrio-ventricular pacerdevice is in place with leads overlying expected position. Heart is upper limits of normal in size There is no pneumothorax.. No effusions no mass or lymphadenopathy. There may be trace interstitial edema. Electronically signed by: Camelia Mckeon M.D. Assessment/Plan Principal Problem: Pseudoarthrosis of lumbar spine Active Problems: Dyslipidemia Chronic nonseasonal allergic rhinitis due to pollen Major depressive disorder, single episode, moderate (HCC) Essential hypertension Paroxysmal atrial fibrillation (CMS/HCC) (HCC) Fusion of spine of lumbar region ICD (implantable cardioverter-defibrillator), dual, in situ Plan of care: NEURO: #Acute pain: - 2/2 surgical procedure, pt reports back pain and spasms - scheduled acetaminophen, baclofen - PRN oxycodone - start PRN dilaudid - frequent reassessment of pain #Thoracolumbar pseudoarthrosis: - 12/01: revision [id number] PSF - q4 hour neuromotor checks - monitor drain output - brace per ortho spine - pain control - Ortho spine following #Anxiety #Depression: - chronic - continue home duloxetine - holding home PRN ativan CV: #Atrial fibrillation with RVR on chronic paroxysmal AF: - 12/02: AF with RVR and ACT called. DCCV with brief conversion to paced rhythm before reverting backin AF with rates 110-120's. Given amio bolus - 12/03: AF with RVR again overnight, amio bolus x 2 and started on amio gtt - continue amio gtt overnight and transition to PO amio tomorrow - holding anticoagulation at this time per ortho spine - pt has [employer] dual lead PPM with ICD in place. Back up rate 60 - TTE as noted below - holding metoprolol due to recent vasopressor requirement - cardiology following #Hypertrophic cardiomyopathy: - chronic - 12/03 TTE: EF 76%, LV cavity size normal with hyperdynamic function, moderate lateral and septal apical hypertrophy suggesting apical varient HCM, no apical aneurysm, no LVOT obstruction, LA mildly dilated, normal RV cavity size and function, mild MR, mild TR, estimated PASP 25 mmHg + RAP (3), normal diastolic function - ICD in place as noted above - holding home lasix - cardiology following PULM: On RA - keep sats >92% - encourage pulmonary hygiene - OOB daily, PT/OT GI: #GERD: - chronic - continue protonix Diet: cardiac diet Bowel regimen: pericolace, dulcolax ENDO: Euglycemic RENAL: BUN/Cr 5/0.56 - Bedoya d/c'd today - unable to void at 6 hours -> straight cath. Continue DUCKI protocol - daily BMP #Hypocalcemia: - iCa 4.44 - 3g calcium gluconate Electrolyte repletion orders: potassium per ICU protocol HEME: #Acute blood loss anemia: - 2/2 surgical procedure with component of dilution - H/H 8.9/25.9 - Plt 173 - no indication for transfusion at this time - daily CBC ID: WBC 9.5 - afebrile - no indication for antibiotics at this time Intensive Care Unit Standards of Care: DVT prophylaxis: SCDs, continue lovenox Vascular access: PIVs Code status: Full code Assessment and plan has been reviewed with ICU attending. Chinyere Abreu NP Critical Care Performed by: Chinyere Abreu NP Authorized by: Chinyere Abreu NP CRITICAL CARE: Team: SICU BLUE Shift: PM Level of Billing: Subsequent Hospital Visit Level 3 My time spent with this patient was 65 minutes: Critical Provider Statement: I have seen and examined the patient on this day of service. I have reviewed and confirmed the history, physical exam, laboratory, and radiographic data as documented in the ICU note. I have reviewed and discussed my treatment plan with the patient's team and other medical/lead consultant staff. This time was in addition to and separate from care provided by other practitioners on this day of service. Cosigned by Robert Shetty MD at 12/06/2023 7:08 PM CDT * Amaury Linn MD - 12/05/2023 11:47 AM CDT Cardiology Daily Progress Note - General Cardiology Interval History: Had recurrent PAF with RVR (130s-140s) last night necessitating retart of IV amiodarone, currently atrial pacing 60s. Denies any sxs. Of CP, SOA, or dizziness. Sitting up in chair and comfortable. Objective Vital Signs: 24hr Min/Max: Temp Min: 36.8 ??C (98.2 ??F) Max: 38 ??C (100.4 ??F) Pulse Min: 60 Max: 144 BP Min: 125/38 Max: 133/69 Resp Min: 14 Max: 31 SpO2 Min: 87 % Max: 100 % Intake/Output: Intake/Output Summary (Last 24 hours) at 12/05/2023 1147 Last data filed at 12/05/2023 1000 Gross per 24 hour Intake 2982.69 ml Output 2465 ml Net 517.69 ml Physical Exam: General appearance: no acute distress Lungs: CTAB Heart: RRR, S1, S2 normal, no murmur,+S4. JVP not elevated, no LE edema Abdomen: soft, NT/ND Extremities: warm and well-perfused Skin: warm and dry Neurologic: No abnormal movements, non-focal exam Current Medications: reviewed Norepinephrine infusion - being weaned IV amiodarone 0.5 mg/min Low dose enoxaparin Lab/Radiology/Diagnostic Review: Labs reviewed B/Cr 5/0.54, TnI decreased to ~11K TTE - apical HCM, LVEF 76%, PASP 28, normal R and L sided filling pressure Assessment/Plan PAF with underlying apical HCM - recurrent episodes of AF/RVR last night, reverted to NSR upon resumption of IV amiodarone - now being fully loaded. Continue IV amiodarone today, can consider switch to oral tomorrow. Wean off norepinephrine to reduce catecholamine trigger - hemodynamics should tolerate. Cardiac filling pressures are normal on TTE. If stable off norepi for 24 h, resume po metoprolol. Would restart DOAC when safe from standpoint of recent spine surgery. Rest of the plan as per primary team. Thank you for the consult. We will continue to follow. Pleasecall with additional questions or concerns. Amaury Linn MD Attending Physician, Cardiology 11:47 AM 12/05/23 * Rose Marie Velazquez MD - 12/05/2023 9:05 AM CDT Orthopaedic Spine Service Daily Progress Note Admit Date: 12/02/2023 Hospital Day: 3 Michelle Dx: Pseudoarthrosis PMH: HTN, HLD, CAD, CHF, RBBB, A-fib with dual lead ICD, chronic pain, PALA with cochlear implant Proc: 12/01 Revision PSF [id number], decompression Exam: Normal motor exam. SILT. : 1945 Admit: 12/02/202312/04: POD3. Int hypotension to 90s/30s, on 0.05 norepi and 0.5 amio drips on 4L NC, o/w AFVSS overnight. Remains in NSR. Seen by cardiology yesterday, recommended for amio and metoprolol. Started lovenox yesterday. Stood with PT, did not ambulate yesterday. D1 90/185. H/H: 8.7/25.8, WBC: 11.1, Cr: 0.54, Lactate: 1.3. Exam: 11/28 BUE/BLE, SILT all dermatomes, dressing c/d/I. Plan for d/c bedoya and void trial when mobilizing, upright scoli XR when able, PT/OT. Please ensure TLSO is not excessively tightened when patient is OOB. Patient is okay for no TLSO while in bed. Please place drain to gravity. Please increase bowel regimen and order KUB. Edited by: Rose Marie Velazquez MD at 12/05/2023 0838 Objective Vitals: 24hr Min/Max: Temp Min: 36.8 ??C (98.2 ??F) Max: 38 ??C (100.4 ??F) Pulse Min: 60 Max: 144 BP Min: 125/38 Max: 133/69 Resp Min: 14 Max: 31 SpO2 Min: 87 % Max: 100 % I/O last 2 completed shifts: In: 2522.7 [P.O.:480; I.V.:1232.7; IV Piggyback:810] Out: 2620 [Urine:2375; Drains:245] I/O this shift: In: - Out: 110 [Urine:110] Physical Exam: Gen: no acute distress Neuro: A&Ox3 Dressing: clean/dry/intact Wound Vac(s): Holding suction nicely, no apparent leaks Hemo Vac(s): Holding suction nicely, no apparent leaks Motor: Muscle Strength Right Left Shoulder abduction (C5) 5/5 5/5 Elbow flexion (C5/6) 5/5 5/5 Elbow extension (C7) 5/5 5/5 Wrist extension (C6) 5/5 5/5 Wrist flexion (C7) 5/5 5/5 Leave Manager (C8) 5/5 5/5 Interosseous of hand (T1) [...] [facility] Lab/Diagnostic Review: Recent Labs Lab Units 12/05/23 0554 12/04/23212712/03/[id number]/[id number]/23210412/03/23 0353 SODIUM mmol/L 139 136 < > -- < > 141 POTASSIUM PLASMA mmol/L 3.3 3.6 < > -- < > 4.2 CHLORIDE mmol/L 104 104 < > -- < > 109 CO2 mmol/L 27 26 < > -- < > 28 CO2 POC -- -- -- -- < > -- ANIONGAP mmol/L 8 6 < > -- < > 4 GLUCOSE mg/dL 117 146 < > -- < > 132 POC GLUCOSE MONITOR -- -- < > -- -- -- BUN SERUM mg/dL 5* 7 < > -- < > 12 CREATININE mg/dL 0.54* 0.54* < > -- < > 0.65 CALCIUM mg/dL 7.1* 7.8* < > -- < > 7.7* ALBUMIN g/dL -- 2.8* -- -- < > 3.3* ALK PHOS Units/L -- 84 -- -- < > 95 ALT Units/L -- 76* -- -- < > 183* AST Units/L -- 132* -- -- < > 218* BILIRUBIN TOTAL mg/dL -- 0.3 -- -- < > 0.5 WBC K/cumm 9.7 11.1* -- 12.2* -- 11.4* HEMOGLOBIN, POC -- -- < > -- -- -- HEMOGLOBIN g/dL 8.6* 8.7* -- 10.2* -- 10.3* HEMATOCRIT % 24.9* 25.8* -- 29.4* -- 30.6* HEMATOCRIT POC -- -- < > -- -- -- PLATELETS K/cumm 168 148* -- 180 -- 195 NEUTROS PCT % -- -- -- 77.4 -- -- LYMPHS PCT % -- -- -- 11.2 -- -- MONOS PCT % -- -- -- 7.3 -- -- EOS PCT % -- -- -- 3.0 -- -- APTT sec -- -- -- -- -- 26* INR -- -- -- -- -- 1.04 < > = values in this interval not displayed. Micro: Lab Results Component Value Date MICROBIOLOGY Preliminary Report: No growth to date. 12/02/2023 Assessment and Plan: Macie Briseno is a 78 y.o. female with thoracolumbar pseudoarthrosis, now s/p revision [id number], T12/L1, L1/L2 PCOs. Post-operative course complicated by afib with RVR and hemodynamic instability, now stabilized in SICU. Appreciate ongoing SICU care. 12/04 tasks [ ] Drain to gravity [ ] KUB [ ] increase bowel reg [ ] do not compress with TLSO when OOB Additional tasks [x] custom TLSO (okay to be OOB w/o TLSO until arrives, once here okay to take off in bed) - TV texted [ ] upright scolis (not ordered) [ ] d/c bedoya and void trial when mobilizing [x] Lvx POD2 (12/03) [X] needs bone stimulator (tasked) Consults: None Meds: Multimodal pain Results: N/A Drains / bedoya: Deep/superficial AUDREY x1 / Continue bedoya ASA / PLX / Anticoag: SCDs. Lvx POD2 Incision / Brace: monocryl, dermabond, tegaderm /custom TLSO brace Dispo / FU: Scheduled for 12/22 at 12p with Miguel Angel RN for wound check, 01/04 at 740a with Miguel Angel Velazquez MD Orthopaedic Surgery PGY-2 For questions please reach out to: Abhijeet 7:30p-6:30a (Night Floor Resident): [phone] Consult Resident: [phone] Specific Resident: [email or web address] to page/call appropriate Orthopaedic Surgery Team/Resident Call Schedule: [facility] for [facility] Orthopaedic Surgery (pw: [facility]) For ortho primary adult patients, Thu - Thu 6a-6p: Call [phone] nurses station for PA/FIELD SERVICE REP ([phone]) For ortho primary pediatric patients, Thu - Thu 6a-6p: Call 10th floor nurses station for FIELD SERVICE REP Cosigned by Jeremy Michelle MD at 12/05/2023 1:40 PM CDT * Lavon Ilz, PT - 12/05/2023 8:05 AM CDT Physical Therapy Physical Therapy Progress Note NOTE: This is a summary note of the khanna components of the treatment session. For full details, review chart for all flowsheets documented on by this physical therapy clinician on this date. Vital signs documented in vital signs flowsheet. Care plan progress documented in Care Plan Activity. For questions, please review the treatment team and contact the PT or CHIPPER currently assigned to this patient. If a physical therapy clinician is not assigned to this patient, please call [phone]. 12/05/23 0805 PT Last Visit Session Type Treatment PT Received On 12/05/23 Safe Environment Arm band checked;Patient found in supine;Gait belt not utilized, see comment (08/28 TLSO) Subjective Agreeable to Therapy Family/Caregiver Present Yes () Current Functional Status PT Functional Mobility Therapeutic activities to improve functional strength and endurance Precautions Precautions Drains;Fall risk;Spinal/Back Braces/Orthoses TLSO (custom TLSO donned in supine) Precaution Comments Verbally reviewed spine precautions Activity Tolerance Activity Tolerance Comments RPE: medium Pain Assessment Pain Assessment No/denies pain Cognition Orientation Oriented X4 (person, place, time, situation) Following Commands Follows all commands and directions without difficulty Safety Judgment Good awareness of safety precautions Compliance/Behavior Easy to engage Balance Balance Yes Static Sitting Balance Static Sitting-Balance Support Feet supported;Bilateral upper extremity supported Static Sitting-Sitting Surface Bed Static Sitting-Level of Assistance Close supervision Static Sitting-Comment/# of Minutes Cues for use of BUE to assist with upright posture Static Standing Balance Static Standing-Balance Support Bilateral upper extremity supported (supported on PT) Static Standing-Standing Surface Floor Static Standing-Level of Assistance Minimum assistance Static Standing-Comment/# of Minutes Min A to maintain hip/knee/trunk extension and balance ICU Mobility Scale ICU Mobility Scale 5 FSS-ICU Functional Status Score (ICU scale) Rolling 5 Supine to Sit 0 Sitting 5 Sit to Stand 4 Ambulation or Wheelchair Mobility? Ambulation Ambulation 0 Score (Out of 35) 14 FSS Interpretation - calculated average score Bed Mobility Bed Mobility Yes Bed Mobility 1 Bed Mobility From 1 Supine Bed Mobility Type 1 To and from Bed Mobility to 1 Rolling right;Rolling left Level of Assistance 1 Standby Assist Bed Mobility Comments 1 Cues for safety and sequencing, pt rolled R x1 and L x2 throughout treatment Bed Mobility 2 Bed Mobility From 2 Side lying-left Bed Mobility Type 2 To Bed Mobility to 2 Edge of Bed Level of Assistance 2 Minimum Assist Bed Mobility Comments 2 Min A for force production, trunk elevation and positioning hips at EOB Transfers Transfer Yes Transfer 1 Transfer From 1 Sit Transfer Type 1 To and from Transfer to 1 Stand Technique 1 Sit to stand;Stand to sit Transfer Device 1 No device Transfer Level of Assistance 1 Minimum Assist Trials/Comments 1 Min A for force production, hip/knee/trunk extension and controlled descent to sit. Transfers 2 Transfer From 2 Bed Transfer Type 2 To Transfer to 2 Chair with arms Technique 2 Stand and step Transfer Device 2 No device Transfer Level of Assistance 2 Minimum Assist Trials/Comments 2 Min A for balance, weight shifting, and pivoting hips to chair. Noted drop in BP during transfer, pt reports dizziness in standing but resolves once seated with residual increased in BP. Ambulation Ambulation No (2/2 symptomatic hypotension) Stairs Stairs No Other Comments Other PT Comments Pt and pt's agreeable to PT POC and d/c recs. Pt limited this date 2/2 hypotension but demonstrates improved tolerance to mobility. Basic Mobility - 6 Click How much difficulty does the patient have: Turning over in bed 3 How much difficulty does the patient currently have: Sitting down and standing up from a chair witharms? 3 How much difficulty does the patient have: Moving from lying on back to sitting on the side of the bed? 3 How much difficulty does the patient have: Moving to and from a bed to a chair including wheelchair? 3 How much help does the patient currently need: Walk in hospital room? 3 How much help from another person does the patient currently need: Climbing 3-5 steps with a railing? 2 Total 6 Click Score (range 6-24) 17 Score Interpretation 39.67 Safe Environment End of Therapy Session Safe Environment End of Therapy Session Patient left in recliner;RN notified;Call light within reach Assessment Prognosis Good Problem List Decreased strength;Impaired balance;Decreased mobility;Decreased coordination;Orthopedic restrictions;Pain Plan Plan Continue with current plan;If this is the last note, consider this the discharge summary Recommendation/Plan PT Recommendation/Plan Inpatient Rehab Facility Patient at high risk for Falls;Readmission;Injury due to reduced functional status;Injury due to balance deficits Recommend Inpatient Rehab/Acute Rehab due to Ability to actively participate in intensive therapy 3hours/day, 5 days/week or 900 minutes per week;Highly motivated to participate in therapy;Impaired ability to complete functional mobility;Requires greater than 25% physical assistance with most mobility tasks;Requires multiple therapy disciplines to address functional deficits PT Frequency during current admission 5-7x/wk Treatment/Interventions during current admission Balance Training;Bed mobility;Endurance training;Equipment eval/education;Functional activity;Functional transfer training;Gait training;Neuromuscularre- education;Strengthening;Therapeutic activity;Therapeutic exercise PT Equipment Recommended None Progress during current admission Progressing toward goals PT - Next Appointment 12/07/23 Multi-Disciplinary Problems (from Physical Therapy) Active Problems Problem: Mobility Start Date: 12/03/23 Goal Start Date Expected End Date End Date LTG - Patient will ambulate household distance independently 12/03/23 01/03/24 -- Goal Start Date Expected End Date End Date STG - Patient will ambulate 50ft with LRD with min A 12/03/23 12/13/23 -- Problem: Transfers Start Date: 12/03/23 Goal Start Date Expected End Date End Date STG - Transfer from bed to chair with sup 12/03/23 12/13/23 -- Goal Start Date Expected End Date End Date STG - Patient to transfer to and from sit to supine with sup 12/03/23 12/13/23 -- Goal Start Date Expected End Date End Date STG - Patient will transfer sit to and from stand with sup 12/03/23 12/13/23 -- * Len Klein PA - 12/05/2023 7:12 AM CDTAssociated Order(s): Critical Care Post-Procedure Diagnose(s): Atrial fibrillation with RVR (CMS/HCC) (HCC) Images from the original note were not included. ICU Daily Progress Team: Blue AM Subjective Patient is a 78 y.o. female admitted to SICU from floor 2/2 afib RVR c/b hypotension requiring electrical cardioversion. Post-op day 2 from [id number] PSF. PMH: Hypertension, Hyperlipidemia, CAD, CHF, RBBB, A-fib with dual lead ICD, chronic pain, PALA withcochlear implant Interval History: - NE off, 500 mL LR - Keep elmira overnight - Continue amio gtt overnight - Reviewed and ordered pertinent laboratory tests. Reviewed any radiological imaging pertinent to patients current treatments. Constant evaluation of I/O's, vitals and oxygen requirements throughout shift. Multiple bedside evaluations of patients over all status. Brief Hospital Course: 12/01: [id number] PSIF 12/02: (pm) afib rvr/SVT, rates to 160's, received 325 mg ASA & SL NTG 2/2 c/f STEMI, became hypotensive, amio bolus + gtt, emergency DCCV, HR briefly 70-80's then 120-130's, TTSICU 12/03: Cardiology c/s Objective Physical Exam: Physical Exam Constitutional: General: She is awake. She is not in acute distress. Appearance: She is not ill-appearing or diaphoretic. Cardiovascular: Rate and Rhythm: Normal rate and regular rhythm. Pulses: Normal pulses. Heart sounds: No murmur heard. No friction rub. Pulmonary: Effort: Pulmonary effort is normal. No respiratory distress. Abdominal: General: There is no distension. Palpations: Abdomen is soft. Tenderness: There is no abdominal tenderness. Skin: General: Skin is warm and dry. Neurological: Mental Status: She is oriented to person, place, and time. Mental status is at baseline. She is lethargic. Medications Scheduled Meds:acetaminophen, 1,000 mg, oral, Q6H ELAINA [START ON 12/07/2023] alendronate, 70 mg, oral, Q7 Days baclofen, 2.5 mg, oral, TID with meals bisacodyL, 10 mg, rectal, Daily cholecalciferol, 2,000 Units, oral, QAM DULoxetine DR, 60 mg, oral, QAM enoxaparin, 40 mg, subcutaneous, Daily-2100 methocarbamoL, 750 mg, oral, TID multivitamin therapeutic, 1 tablet, oral, Daily pantoprazole DR, 40 mg, oral, Daily senna-docusate, 2 tablet, oral, BID sodium chloride 0.9%, 0.5-20 mL, intra-catheter, Q8H ELAINA Continuous Infusions:amiodarone, 0.5 mg/min, Last Rate: 0.5 mg/min (12/05/23701) dextrose 5% and Lactated Ringer's, 25 mL/hr, Last Rate: 25 mL/hr (12/05/23599) norepinephrine, 0-0.25 mcg/kg/min, Last Rate: 0.05 mcg/kg/min (12/05/23701) sodium chloride 0.9%, 3-12 mL/hr, Last Rate: 3 mL/hr (12/05/23599) PRN Meds:. bisacodyl EC sodium chloride 0.9% doxepin fluticasone propionate HYDROmorphone magnesium hydroxide mineral oil naloxone ondansetron oxyCODONE prochlorperazine sodium chloride 0.9% Vital signs for last 24 hours: Temp: [36.8 ??C (98.2 ??F)-38 ??C (100.4 ??F)] 36.9 ??C (98.4 ??F) Pulse: [60-144] 60 BP: (125-133)/(38-69) 133/69 Resp: [14-31] 22 SpO2: [87 %-100 %] 93 % Arterial Line BP: (86-168)/(34-53) 114/39 Hemodynamics: MAP (mmHg): [69-73] 73 Pulmonary Support: O2 Therapy: Supplemental oxygen O2 Del Method: Nasal cannula O2 Flow Rate (L/min): 4 L/min Intake/Output: Intake/Output Summary (Last 24 hours) at 12/05/2023711 Last data filed at 12/05/2023 0600 Gross per 24 hour Intake 2522.69 ml Output 2545 ml Net -22.31 ml Labs reviewed: Recent Results (from the past 12 hour(s)) POCT glucose Collection Time: 12/04/23 7:28 PM Result Value Ref Range Glucose, POC 129 70 - 199 mg/dL CBC without differential Collection Time: 12/04/23 9:28 PM Result Value Ref Range WBC 11.1 (H) 3.8 - 9.9 K/cumm Hgb 8.7 (L) 11.9 - 15.5 g/dL Hct 25.8 (L) 35.6 - 45.5 % Plt 148 (L) 150 - 400 K/cumm MPV 10.1 9.1 - 12.3 fL RBC 2.95 (L) 3.90 - 5.20 M/cumm MCV 87.5 81.3 - 96.4 fL MCH 29.5 27.1 - 33.3 pg MCHC 33.7 32.3 - 35.7 g/dL RDW CV 15.0 (H) 11.1 - 14.9 % RDW SD 48.3 (H) 35.7 - 48.1 fL NRBC abs 0.00 0.00 - 0.01 K/cumm Magnesium Collection Time: 12/04/23 9:28 PM Result Value Ref Range Magnesium 1.8 1.4 - 2.5 mg/dL Phosphorus Collection Time: 12/04/23 9:28 PM Result Value Ref Range Phosphorus, pl 1.7 (L) 2.3 - 4.5 mg/dL Comprehensive metabolic panel Collection Time: 12/04/23 9:28 PM Result Value Ref Range Sodium 136 135 - 145 mmol/L Potassium, pl 3.6 3.3 - 4.9 mmol/L Chloride 104 97 - 110 mmol/L CO2 26 22 - 32 mmol/L Anion gap 6 2 - 15 mmol/L BUN 7 6 - 25 mg/dL Creatinine 0.54 (L) 0.60 - 1.10 mg/dL Glucose 146 70 - 199 mg/dL Calcium 7.8 (L) 8.5 - 10.3 mg/dL Bilirubin, total 0.3 0.1 - 1.2 mg/dL Protein, pl 5.3 (L) 6.5 - 8.5 g/dL Albumin 2.8 (L) 3.5 - 5.0 g/dL Alk phos 84 40 - 130 Units/L ALT 76 (H) 7 - 45 Units/L AST 132 (H) 10 - 45 Units/L eGFR Collection Time: 12/04/23 9:28 PM Result Value Ref Range eGFR >90 >=60 mL/min/1.73 m2 Basic metabolic panel Collection Time: 12/05/23 5:54 AM Result Value Ref Range Sodium 139 135 - 145 mmol/L Potassium, pl 3.3 3.3 - 4.9 mmol/L Chloride 104 97 - 110 mmol/L CO2 27 22 - 32 mmol/L Anion gap 8 2 - 15 mmol/L BUN 5 (L) 6 - 25 mg/dL Creatinine 0.54 (L) 0.60 - 1.10 mg/dL Glucose 117 70 - 199 mg/dL Calcium 7.1 (L) 8.5 - 10.3 mg/dL Magnesium Collection Time: 12/05/23 5:54 AM Result Value Ref Range Magnesium 2.1 1.4 - 2.5 mg/dL Phosphorus Collection Time: 12/05/23 5:54 AM Result Value Ref Range Phosphorus, pl 3.1 2.3 - 4.5 mg/dL CBC without differential Collection Time: 12/05/23 5:54 AM Result Value Ref Range WBC 9.7 3.8 - 9.9 K/cumm Hgb 8.6 (L) 11.9 - 15.5 g/dL Hct 24.9 (L) 35.6 - 45.5 % Plt 168 150 - 400 K/cumm MPV 10.1 9.1 - 12.3 fL RBC 2.88 (L) 3.90 - 5.20 M/cumm MCV 86.5 81.3 - 96.4 fL MCH 29.9 27.1 - 33.3 pg MCHC 34.5 32.3 - 35.7 g/dL RDW CV 15.0 (H) 11.1 - 14.9 % RDW SD 47.2 35.7 - 48.1 fL NRBC abs 0.00 0.00 - 0.01 K/cumm eGFR Collection Time: 12/05/23 5:54 AM Result Value Ref Range eGFR >90 >=60 mL/min/1.73 m2 Imaging reviewed: XR Scoliosis Ap Lat Result Date: 12/02/2023 1. Intraoperative radiographs demonstrating ongoing posterior instrumented spinal fusion revision. Electronically signed by: Edgar Pichardo M.D. Assessment/Plan: Neurologic: # Acute Post-op Pain: - PRN APAP, robaxin, oxy # Depression, chronic # Anxiety, chronic - Home duloxetine - Home PRN [facility]HS # Thoracolumbar Pseudoarthrosis, POA S/p multiple previous spine surgeries now s/p (12/01) [id number] PSIF - Ortho-spine primary - Follow drain output Cardiovascular: # Elevated Troponin Troponin 94 > 14,000. Pt denies CP/SOB/other ACS symptoms - Cardiology c/s, f/u recommendations - Trend troponin until peak - Serial EKG # Acute Afib RVR/SVT # Paroxysmal atrial fibrillation, chronic Home meds: dilt-XR 180 mg daily, lasix 40 mg BID, metop 25 mg IR BID, Eliquis 5 mg BID. S/p [employer] dual lead AV ICD w/ pacing function placement 05/2021 for VT/VF primary prevention - Cardiology following - S/p DCCV 12/02 during ACT w/ brief conversion to paced rhythm before reverting back into irregularrhythm w/ rates 110's-120's. Given amio bolus, gtt started - Continue amio gtt - Optimize electrolytes - TTE ordered # RBBB, chronic # AV block, 2nd Degree, chronic # Hypertrophic Cardiomyopathy, chronic Follows w/ [facility] Dr. Talbert, [employer] [address] Dr. Recio - AICD in place - EKG in 07/2023 in sinus rhythm; 12/02 1400 NSR, 12/02 (pm) Afib with RVR w/ hypotension requiring electrical cardioversion, amio bolus/infusion - Cardiology following # Undifferentiated Shock Possibly cardiogenic - NE for SBP >120 - Received 1.5 L crystalloid overnight Pulmonary: # Acute respiratory insufficiency 2/2 afib RVR/SVT - Currently on 4L NC - Wean for spo2>92% GI: Diet: Regular diet RENAL: - Bedoya in place w/ adequate UOP HEME: DVT PPx: lovenox # ABLA 2/2 surgery - Hgb stable, monitor daily CBC, transfuse for Hgb <7 and/or hemodynamic instability w/ active bleeding ID: # Leukocytosis Likely reactive - Postop abx complete - Trend WBC, monitor fever curve Intensive Care Unit Standards of Care: Diet: regular Restraints: n/a Vascular access: PIV, radial elmira Goals of care: full code Assessment and plan has been reviewed with ICU fellow and attending. Len Klein PA-C Critical Care Performed by: Len Klein PA Authorized by: Len Klein PA CRITICAL CARE: Team: SICU BLUE Shift: AM Level of Billing: Critical Care My time spent with this patient was 75 minutes: Critical Provider Statement: I have seen and examined the patient on this day of service. I have reviewed and confirmed the history, physical exam, laboratory and radiologic data as documented in thesigned ICU note. I have reviewed and discussed my treatment plan with the ICU team and other medical/lead consultant staff, making frequent assessments and decisions regarding this patient's complex medical care. Critical Care time was exclusive of time spent performing separately billed procedures, treating other patients, and teaching. This time was in addition to and separate from critical care provided by other practitioners in my group on this day of service. Critical Care was necessary to treat or prevent imminent or life-threatening deterioration of the following conditions: I spent time reviewing and interpreting data from bedside monitors, laboratory results, and imaging, I spent time discussing the management of this critically ill patient with consultants and the medical staff and I spent time documenting in the medical record Cosigned by Rachel Colorado MD at 12/06/2023 12:30 PM CDT * Robb Castellanos - 12/05/2023 6:52 AM CDT Spiritual Care Robb Castellanos 12/05/23 [id number] 12/05/23 0600 Time Spent Start Time 0625 Stop Time 0640 Time Calculation (min) 15 min Patient Spiritual Assessment Spirituality Assessed Focus of Care Worship Affiliation Islam Spiritual Needs Prayer Clinical Encounter Type Visited With Patient and family together Response Type Routine visit Routine Visit Introduction Reason for visit Support Outcomes and Progress Aligning care with patient's values Achieved Preserve dignity and respect Achieved Demonstrating care and respect Achieved Tracy affirmation Achieved Establish rapport and connectedness Achieved Sense of peace Achieved Interventions Interventions Offer emotional support;Offer spiritual/taoist support;Prayer * Chinyere Abreu NP - 12/04/2023 7:41 PM CDTAssociated Order(s): Critical Care Post-Procedure Diagnose(s): Atrial fibrillation with RVR (CMS/HCC) (HCC) Surgical ICU Daily Progress Note Team: Blue PM Subjective Patient is a 78 y.o. female admitted on 12/02/2023 6:42 AM with chief complaint of atrial fibrillation with RVR. Interval History: - recurrent AF with RVR -> amio bolus x 2, resume gtt - start low dose baclofen for muscle spasms - d/c SSI as pt is euglycemic - start lovenox for DVT ppx - replete potassium, mag, phos, calcium - norepi resumed for hypotension associated with atrial fibrillation - Reviewed and ordered pertinent laboratory tests. Reviewed any radiological imaging pertinent to patients current treatments. Ongoing evaluation of I/O's, vitals and oxygen requirements throughout shift. Multiple bedside evaluations of patients over all status. Objective Physical Exam: Neuro: rouses to voice, PALA, A&O x 4, follows commands, REED, 5/5 BUE, 4/5 BLE, PERRl CV: rate controled atrial fibrillation, extremities warm, palpable DP and radial pulses BLE, 2+ edema Pulm: CTAB ABD: normoactive BS, soft, NT/ND Skin: surgical incision to back c/d/I Drains: Bedoya, AUDREY x 1 to back Medications Scheduled Meds:acetaminophen, 1,000 mg, oral, Q6H ELAINA [START ON 12/07/2023] alendronate, 70 mg, oral, Q7 Days amiodarone, 400 mg, oral, BID baclofen, 2.5 mg, oral, TID with meals bisacodyL, 10 mg, rectal, Daily cholecalciferol, 2,000 Units, oral, QAM DULoxetine DR, 60 mg, oral, QAM enoxaparin, 40 mg, subcutaneous, Daily-2100 furosemide, 20 mg, oral, BID methocarbamoL, 750 mg, oral, TID multivitamin therapeutic, 1 tablet, oral, Daily pantoprazole DR, 40 mg, oral, Daily senna-docusate, 2 tablet, oral, BID sodium chloride 0.9%, 0.5-20 mL, intra-catheter, Q8H ELAINA Continuous Infusions:amiodarone, 0.5 mg/min, Last Rate: 0.5 mg/min (12/04/231847) sodium chloride 0.9%, 3-12 mL/hr, Last Rate: 3 mL/hr (12/04/231847) PRN Meds:.??? acetaminophen ??? bisacodyl EC ??? sodium chloride 0.9% ??? doxepin ??? fluticasone propionate ??? HYDROmorphone ??? magnesium hydroxide ??? mineral oil ??? naloxone ??? ondansetron ??? oxyCODONE ??? prochlorperazine ??? sodium chloride 0.9% Vital signs for last 24 hours: Temp: [36.9 ??C (98.4 ??F)-38 ??C (100.4 ??F)] 37.1 ??C (98.8 ??F) Pulse: [60-174] 71 BP: (68-112)/(33-91) 100/55 Resp: [10-26] 22 SpO2: [89 %-100 %] 99 % Arterial Line BP: (91-168)/(36-68) 138/43 Hemodynamics: MAP (mmHg): [46-94] 62 Pulmonary Support: O2 Therapy: Supplemental oxygen O2 Del Method: Nasal cannula O2 Flow Rate (L/min): 4 L/min Intake/Output: Intake/Output Summary (Last 24 hours) at 12/04/2023 194 Last data filed at 12/04/2023 1900 Gross per 24 hour Intake 4098.51 ml Output 2205 ml Net 1893.51 ml Labs and images reviewed: Laboratory review: Lab results in the last 12 hours: Recent Results (from the past 12 hour(s)) Basic metabolic panel Collection Time: 12/04/23 11:33 AM Result Value Ref Range Sodium 137 135 - 145 mmol/L Potassium, pl 3.9 3.3 - 4.9 mmol/L Chloride 106 97 - 110 mmol/L CO2 26 22 - 32 mmol/L Anion gap 5 2 - 15 mmol/L BUN 9 6 - 25 mg/dL Creatinine 0.60 0.60 - 1.10 mg/dL Glucose 115 70 - 199 mg/dL Calcium 8.0 (L) 8.5 - 10.3 mg/dL Magnesium Collection Time: 12/04/23 11:33 AM Result Value Ref Range Magnesium 2.0 1.4 - 2.5 mg/dL Phosphorus Collection Time: 12/04/23 11:33 AM Result Value Ref Range Phosphorus, pl 1.4 (L) 2.3 - 4.5 mg/dL Troponin I high-sensitivity series (baseline, 2hr, 4hr, 6hr) Collection Time: 12/04/23 11:33 AM Result Value Ref Range Trop I hs 14,046 (Critical) <=17 ng/L eGFR Collection Time: 12/04/23 11:33 AM Result Value Ref Range eGFR >90 >=60 mL/min/1.73 m2 Critical result callback Cardio chemistry Collection Time: 12/04/23 11:33 AM Result Value Ref Range Date Notified 20231204 Time Notified 1240 Test name Trop I hs base Called/Read Back Juanito Renteria Credentials RN Called By [facility] Lipid panel Collection Time: 12/04/23 11:33 AM Result Value Ref Range Cholesterol 93 30 - 199 mg/dL Triglycerides 139 <=149 mg/dL HDL 33 (L) >=40 mg/dL LDL, calculated 32 <=129 mg/dL Non-HDL Cholesterol 60 mg/dL Chol/HDL ratio 3 POCT glucose Collection Time: 12/04/23 11:55 AM Result Value Ref Range Glucose, POC 99 70 - 199 mg/dL Troponin I high-sensitivity 2-hour Collection Time: 12/04/23 1:34 PM Result Value Ref Range Trop I hs 12,405 (Critical) <=17 ng/L Trop I hs pct delta -12 (Critical) % Trop I hs interp Significant (Critical) Pro B-type natriuretic peptide Collection Time: 12/04/23 1:45 PM Result Value Ref Range NT-proBNP 1,785 (H) <=450 pg/mL POCT glucose Collection Time: 12/04/23 3:40 PM Result Value Ref Range Glucose, POC 115 70 - 199 mg/dL Troponin I high-sensitivity 4-hour Collection Time: 12/04/23 3:44 PM Result Value Ref Range Trop I hs 12,137 (Critical) <=17 ng/L Trop I hs pct delta -14 % Trop I hs interp Equivocal Transthoracic Echo (TTE) Complete W Doppler/CF Collection Time: 12/04/23 3:48 PM Result Value Ref Range LV EF 76 % Troponin I high-sensitivity 6-hour Collection Time: 12/04/23 5:57 PM Result Value Ref Range Trop I hs 11,198 (Critical) <=17 ng/L Trop I hs pct delta -20 (Critical) % Trop I hs interp Significant (Critical) POCT glucose Collection Time: 12/04/23 7:28 PM Result Value Ref Range Glucose, POC 129 70 - 199 mg/dL CBC without differential Collection Time: 12/04/23 9:28 PM Result Value Ref Range WBC 11.1 (H) 3.8 - 9.9 K/cumm Hgb 8.7 (L) 11.9 - 15.5 g/dL Hct 25.8 (L) 35.6 - 45.5 % Plt 148 (L) 150 - 400 K/cumm MPV 10.1 9.1 - 12.3 fL RBC 2.95 (L) 3.90 - 5.20 M/cumm MCV 87.5 81.3 - 96.4 fL MCH 29.5 27.1 - 33.3 pg MCHC 33.7 32.3 - 35.7 g/dL RDW CV 15.0 (H) 11.1 - 14.9 % RDW SD 48.3 (H) 35.7 - 48.1 fL NRBC abs 0.00 0.00 - 0.01 K/cumm Magnesium Collection Time: 12/04/23 9:28 PM Result Value Ref Range Magnesium 1.8 1.4 - 2.5 mg/dL Phosphorus Collection Time: 12/04/23 9:28 PM Result Value Ref Range Phosphorus, pl 1.7 (L) 2.3 - 4.5 mg/dL Comprehensive metabolic panel Collection Time: 12/04/23 9:28 PM Result Value Ref Range Sodium 136 135 - 145 mmol/L Potassium, pl 3.6 3.3 - 4.9 mmol/L Chloride 104 97 - 110 mmol/L CO2 26 22 - 32 mmol/L Anion gap 6 2 - 15 mmol/L BUN 7 6 - 25 mg/dL Creatinine 0.54 (L) 0.60 - 1.10 mg/dL Glucose 146 70 - 199 mg/dL Calcium 7.8 (L) 8.5 - 10.3 mg/dL Bilirubin, total 0.3 0.1 - 1.2 mg/dL Protein, pl 5.3 (L) 6.5 - 8.5 g/dL Albumin 2.8 (L) 3.5 - 5.0 g/dL Alk phos 84 40 - 130 Units/L ALT 76 (H) 7 - 45 Units/L AST 132 (H) 10 - 45 Units/L eGFR Collection Time: 12/04/23 9:28 PM Result Value Ref Range eGFR >90 >=60 mL/min/1.73 m2 Recent Results (from the past 24 hour(s)) POCT glucose Collection Time: 12/03/23 11:18 PM Result Value Ref Range Glucose, POC 123 70 - 199 mg/dL POCT glucose Collection Time: 12/04/23 3:26 AM Result Value Ref Range Glucose, POC 104 70 - 199 mg/dL POCT glucose Collection Time: 12/04/23 7:09 AM Result Value Ref Range Glucose, POC 115 70 - 199 mg/dL Basic metabolic panel Collection Time: 12/04/23 11:33 AM Result Value Ref Range Sodium 137 135 - 145 mmol/L Potassium, pl 3.9 3.3 - 4.9 mmol/L Chloride 106 97 - 110 mmol/L CO2 26 22 - 32 mmol/L Anion gap 5 2 - 15 mmol/L BUN 9 6 - 25 mg/dL Creatinine 0.60 0.60 - 1.10 mg/dL Glucose 115 70 - 199 mg/dL Calcium 8.0 (L) 8.5 - 10.3 mg/dL Magnesium Collection Time: 12/04/23 11:33 AM Result Value Ref Range Magnesium 2.0 1.4 - 2.5 mg/dL Phosphorus Collection Time: 12/04/23 11:33 AM Result Value Ref Range Phosphorus, pl 1.4 (L) 2.3 - 4.5 mg/dL Troponin I high-sensitivity series (baseline, 2hr, 4hr, 6hr) Collection Time: 12/04/23 11:33 AM Result Value Ref Range Trop I hs 14,046 (Critical) <=17 ng/L eGFR Collection Time: 12/04/23 11:33 AM Result Value Ref Range eGFR >90 >=60 mL/min/1.73 m2 Critical result callback Cardio chemistry Collection Time: 12/04/23 11:33 AM Result Value Ref Range Date Notified 20231204 Time Notified 1240 Test name Trop I hs base Called/Read Back Juanito Renteria Credentials RN Called By JUVENTINOW Lipid panel Collection Time: 12/04/23 11:33 AM Result Value Ref Range Cholesterol 93 30 - 199 mg/dL Triglycerides 139 <=149 mg/dL HDL 33 (L) >=40 mg/dL LDL, calculated 32 <=129 mg/dL Non-HDL Cholesterol 60 mg/dL Chol/HDL ratio 3 POCT glucose Collection Time: 12/04/23 11:55 AM Result Value Ref Range Glucose, POC 99 70 - 199 mg/dL Troponin I high-sensitivity 2-hour Collection Time: 12/04/23 1:34 PM Result Value Ref Range Trop I hs 12,405 (Critical) <=17 ng/L Trop I hs pct delta -12 (Critical) % Trop I hs interp Significant (Critical) Pro B-type natriuretic peptide Collection Time: 12/04/23 1:45 PM Result Value Ref Range NT-proBNP 1,785 (H) <=450 pg/mL POCT glucose Collection Time: 12/04/23 3:40 PM Result Value Ref Range Glucose, POC 115 70 - 199 mg/dL Troponin I high-sensitivity 4-hour Collection Time: 12/04/23 3:44 PM Result Value Ref Range Trop I hs 12,137 (Critical) <=17 ng/L Trop I hs pct delta -14 % Trop I hs interp Equivocal Transthoracic Echo (TTE) Complete W Doppler/CF Collection Time: 12/04/23 3:48 PM Result Value Ref Range LV EF 76 % Troponin I high-sensitivity 6-hour Collection Time: 12/04/23 5:57 PM Result Value Ref Range Trop I hs 11,198 (Critical) <=17 ng/L Trop I hs pct delta -20 (Critical) % Trop I hs interp Significant (Critical) POCT glucose Collection Time: 12/04/23 7:28 PM Result Value Ref Range Glucose, POC 129 70 - 199 mg/dL CBC without differential Collection Time: 12/04/23 9:28 PM Result Value Ref Range WBC 11.1 (H) 3.8 - 9.9 K/cumm Hgb 8.7 (L) 11.9 - 15.5 g/dL Hct 25.8 (L) 35.6 - 45.5 % Plt 148 (L) 150 - 400 K/cumm MPV 10.1 9.1 - 12.3 fL RBC 2.95 (L) 3.90 - 5.20 M/cumm MCV 87.5 81.3 - 96.4 fL MCH 29.5 27.1 - 33.3 pg MCHC 33.7 32.3 - 35.7 g/dL RDW CV 15.0 (H) 11.1 - 14.9 % RDW SD 48.3 (H) 35.7 - 48.1 fL NRBC abs 0.00 0.00 - 0.01 K/cumm Magnesium Collection Time: 12/04/23 9:28 PM Result Value Ref Range Magnesium 1.8 1.4 - 2.5 mg/dL Phosphorus Collection Time: 12/04/23 9:28 PM Result Value Ref Range Phosphorus, pl 1.7 (L) 2.3 - 4.5 mg/dL Comprehensive metabolic panel Collection Time: 12/04/23 9:28 PM Result Value Ref Range Sodium 136 135 - 145 mmol/L Potassium, pl 3.6 3.3 - 4.9 mmol/L Chloride 104 97 - 110 mmol/L CO2 26 22 - 32 mmol/L Anion gap 6 2 - 15 mmol/L BUN 7 6 - 25 mg/dL Creatinine 0.54 (L) 0.60 - 1.10 mg/dL Glucose 146 70 - 199 mg/dL Calcium 7.8 (L) 8.5 - 10.3 mg/dL Bilirubin, total 0.3 0.1 - 1.2 mg/dL Protein, pl 5.3 (L) 6.5 - 8.5 g/dL Albumin 2.8 (L) 3.5 - 5.0 g/dL Alk phos 84 40 - 130 Units/L ALT 76 (H) 7 - 45 Units/L AST 132 (H) 10 - 45 Units/L eGFR Collection Time: 12/04/23 9:28 PM Result Value Ref Range eGFR >90 >=60 mL/min/1.73 m2 XR Chest 1 View Result Date: 12/04/2023 The current study is compared with the prior radiograph dated 09/29/2023 An atrio-ventricular pacerdevice is in place with leads overlying expected position. Heart is upper limits of normal in size There is no pneumothorax.. No effusions no mass or lymphadenopathy. There may be trace interstitial edema. Electronically signed by: Camelia Mckeon M.D. Assessment/Plan Principal Problem: Pseudoarthrosis of lumbar spine Active Problems: Dyslipidemia Chronic nonseasonal allergic rhinitis due to pollen Major depressive disorder, single episode, moderate (HCC) Essential hypertension Paroxysmal atrial fibrillation (CMS/HCC) (HCC) Fusion of spine of lumbar region ICD (implantable cardioverter-defibrillator), dual, in situ Plan of care: NEURO: #Acute pain: - 2/2 surgical procedure, pt reports back pain and spasms - make acetaminophen scheduled - continue robaxin - start low dose baclofen - PRN acetaminophen - start PRN dilaudid - frequent reassessment of pain #Thoracolumbar pseudoarthrosis: - 12/01: revision [id number] PSF - q4 hour neuromotor checks - monitor drain output - brace per ortho spine - pain control - Ortho spine following #Anxiety #Depression: - chronic - continue home duloxetine - holding home PRN ativan CV: #Atrial fibrillation with RVR on chronic paroxysmal AF: - 12/02: AF with RVR and ACT called. DCCV with brief conversion to paced rhythm before reverting backin AF with rates 110-120's. Given amio bolus - amio gtt to complete tonight and start PO amio - holding anticoagulation at this time per ortho spine - pt has [employer] dual lead PPM with ICD in place. Back up rate 60 - TTE as noted below - holding metoprolol due to recent vasopressor requirement - cardiology following - overnight -> pt back in AF with RVR. Amio bolus x 2 - replete Mag, K, and Ph - repeat chemistries at 0600 #Shock: - likely cardiogenic 2/2 atrial fibrillation - pt hypotensive after going back into AF with RVR - off anticoagulation - resume norepi gtt and titrate for SBP >110 - AF with RVR management as noted above #Hypertrophic cardiomyopathy: - chronic - 12/03 TTE: EF 76%, LV cavity size normal with hyperdynamic function, moderate lateral and septal apical hypertrophy suggesting apical varient HCM, no apical aneurysm, no LVOT obstruction, LA mildly dilated, normal RV cavity size and function, mild MR, mild TR, estimated PASP 25 mmHg + RAP (3), normal diastolic function - ICD in place as noted above - home lasix resumed today -> hold with hypotension - cardiology following PULM: On RA - keep sats >92% - encourage pulmonary hygiene - OOB daily, PT/OT GI: #GERD: - chronic - continue protonix Diet: cardiac diet Bowel regimen: pericolace, dulcolax ENDO: Euglycemic - d/c SSI RENAL: BUN/Cr 7/0.54 - Bedoya, q1 hour I&O monitoring - daily BMP #Hypophosphatemia: - Ph 1.7 - 30 mmol K Ph Electrolyte repletion orders: potassium and magnesium per ICU protocol HEME: #Acute blood loss anemia: - 2/2 surgical procedure with component of dilution - H/H 10.2/29.4 -> 8.7/25.8 - no indication for transfusion at this time - repeat CBC at 0600 ID: #Leukocytosis: - WBC 11.1 - afebrile - no indication for antibiotics at this time Intensive Care Unit Standards of Care: DVT prophylaxis: SCDs, start lovenox tonight Vascular access: PIVs Code status: Full code Assessment and plan has been reviewed with ICU attending. Chinyere Abreu NP Critical Care Performed by: Chinyere Abreu NP Authorized by: Chinyere Abreu NP CRITICAL CARE: Team: SICU BLUE Shift: PM Level of Billing: Critical Care My time spent with this patient was 120 minutes: Critical Provider Statement: I have seen and examined the patient on this day of service. I have reviewed and confirmed the history, physical exam, laboratory and radiologic data as documented in thesigned ICU note. I have reviewed and discussed my treatment plan with the ICU team and other medical/lead consultant staff, making frequent assessments and decisions regarding this patient's complex medical care. Critical Care time was exclusive of time spent performing separately billed procedures, treating other patients, and teaching. This time was in addition to and separate from critical care provided by other practitioners in my group on this day of service. Critical Care was necessary to treat or prevent imminent or life-threatening deterioration of the following conditions: I spent time reviewing and interpreting data from bedside monitors, laboratory results, and imaging, I spent time discussing the management of this critically ill patient with consultants and the medical staff and I spent time documenting in the medical record Cosigned by Robert Shetty MD at 12/05/2023 7:04 PM CDT * Rika Wang - 12/04/2023 10:59 AM CDT Physical Therapy Physical Therapy Progress Note NOTE: This is a summary note of the khanna components of the treatment session. For full details, review chart for all flowsheets documented on by this physical therapy clinician on this date. Vital signs documented in vital signs flowsheet. Care plan progress documented in Care Plan Activity. For questions, please review the treatment team and contact the PT or CHIPPER currently assigned to this patient. If a physical therapy clinician is not assigned to this patient, please call [phone]. 12/04/23 1059 PT Last Visit Session Type Treatment PT Received On 12/04/23 Safe Environment Arm band checked;Patient found in supine;Gait belt not utilized, see comment (TLSO) Subjective Agreeable to Therapy Family/Caregiver Present No Current Functional Status PT Functional Mobility ther act for improvement of functional mobility and endurance Precautions Precautions Fall risk;Spinal/Back Weight Bearing Restrictions No Braces/Orthoses TLSO Precaution Handout Issued No Activity Tolerance Activity Tolerance Comments RPE deferred Pain Assessment Pain Assessment 0-10 Pain Score 7 Pain Location Back (Lumbar) Pain Interventions RN Notified (RN notified but stated pt had already received pain medication prior to session) Cognition Arousal/Alertness Alert;Appropriate responses to stimuli Orientation Oriented to person;Oriented to place;Oriented to situation Following Commands Follows multistep commands with increased time Safety Judgment Good awareness of safety precautions Compliance/Behavior Easy to engage Balance Tests Balance Tests Yes Balance Balance Yes Static Sitting Balance Static Sitting-Balance Support Bilateral upper extremity supported;Feet supported (UE supported on bed) Static Sitting-Sitting Surface Bed Static Sitting-Level of Assistance Close supervision Static Sitting-Comment/# of Minutes verbal cues for improved posture and safety Static Standing Balance Static Standing-Balance Support Bilateral upper extremity supported (UE supported on PTs arms) Static Standing-Standing Surface Floor Static Standing-Level of Assistance Minimum assistance Static Standing-Comment/# of Minutes min A x2 for maintenance of balance ICU Mobility Scale ICU Mobility Scale 5 FSS-ICU Functional Status Score (ICU scale) Rolling 2 Supine to Sit 2 Sitting 5 Sit to Stand 2 Ambulation or Wheelchair Mobility? Ambulation Ambulation 0 Score (Out of 35) 11 FSS Interpretation 14 Bed Mobility Bed Mobility Yes Bed Mobility 1 Bed Mobility From 1 Supine Bed Mobility Type 1 To and from Bed Mobility to 1 Side lying-right;Side lying-left Level of Assistance 1 Minimum Assist Bed Mobility Comments 1 min A x2 for maintenance of balance Bed Mobility 2 Bed Mobility From 2 Supine Bed Mobility Type 2 To Bed Mobility to 2 Edge of Bed Level of Assistance 2 Moderate Assist Bed Mobility Comments 2 mod A x2 for elevation of trunk and movement of LEs; HOB flat, log roll Transfers Transfer Yes Transfer 1 Transfer From 1 Sit Transfer Type 1 To and from Transfer to 1 Stand Technique 1 Sit to stand;Stand to sit Transfer Device 1 No device Transfer Level of Assistance 1 Minimum Assist Trials/Comments 1 min A x2 for force production Transfers 2 Transfer From 2 Bed Transfer Type 2 To Transfer to 2 Chair with arms Technique 2 Stand and step Transfer Device 2 No device Transfer Level of Assistance 2 Minimum Assist Trials/Comments 2 min A x2 for maintenance of balance and verbal cues required to encourage stepping Ambulation Ambulation No (deferred 2/2 pt report of pain and SOB with mobility) Stairs Stairs No Other Comments Other PT Comments pt agreeable to SPT POC and d/c recs Basic Mobility - 6 Click How much difficulty does the patient have: Turning over in bed 3 How much difficulty does the patient currently have: Sitting down and standing up from a chair witharms? 3 How much difficulty does the patient have: Moving from lying on back to sitting on the side of the bed? 2 How much difficulty does the patient have: Moving to and from a bed to a chair including wheelchair? 3 How much help does the patient currently need: Walk in hospital room? 2 How much help from another person does the patient currently need: Climbing 3-5 steps with a railing? 2 Total 6 Click Score (range 6-24) 15 Score Interpretation 36.97 Safe Environment End of Therapy Session Safe Environment End of Therapy Session Patient left in chair;RN notified;Call light within reach;Overbed table within reach Assessment Prognosis Good Problem List Decreased strength;Decreased endurance;Impaired balance;Decreased mobility Barriers to Discharge Current Mobility Status Plan Plan Continue with current plan;If this is the last note, consider this the discharge summary Recommendation/Plan PT Recommendation/Plan Inpatient Rehab Facility Patient at high risk for Falls;Readmission;Injury due to reduced functional status;Injury due to decreased ability to care for self;Injury due to balance deficits;Injury at home as patient has not returned to prior level of function Recommend Inpatient Rehab/Acute Rehab due to Ability to actively participate in intensive therapy 3hours/day, 5 days/week or 900 minutes per week;Not at baseline due to impaired ability to complete ADLs;Impaired ability to complete functional mobility;Requires greater than 25% physical assistance with most mobility tasks;Likely to return to the community at discharge with support system in place PT Frequency during current admission 5-7x/wk Treatment/Interventions during current admission Balance Training;Bed mobility;Endurance training;Functional transfer training;Gait training;Stair training;Strengthening;Therapeutic activity;Therapeutic exercise PT Equipment Recommended None Progress during current admission Progressing toward goals PT - Next Appointment 12/06/23 Multi-Disciplinary Problems (from Physical Therapy) Active Problems Problem: Mobility Start Date: 12/03/23 Goal Start Date Expected End Date End Date LTG - Patient will ambulate household distance independently 12/03/23 01/03/24 -- Goal Start Date Expected End Date End Date STG - Patient will ambulate 50ft with LRD with min A 12/03/23 12/13/23 -- Problem: Transfers Start Date: 12/03/23 Goal Start Date Expected End Date End Date STG - Transfer from bed to chair with sup 12/03/23 12/13/23 -- Goal Start Date Expected End Date End Date STG - Patient to transfer to and from sit to supine with sup 12/03/23 12/13/23 -- Goal Start Date Expected End Date End Date STG - Patient will transfer sit to and from stand with sup 12/03/23 12/13/23 -- Cosigned by Liz Doll, PT at 12/04/2023 4:37 PM CDT * Isabelle Deleon MD - 12/04/2023 7:43 AM CDT Orthopaedic Spine Service Daily Progress Note Admit Date: 12/02/2023 Hospital Day: 2 Michelle Dx: Pseudoarthrosis PMH: HTN, HLD, CAD, CHF, RBBB, A-fib with dual lead ICD, chronic pain, PALA with cochlear implant Proc: 12/01 Revision PSF [id number], decompression Exam: Normal motor exam. SILT. : 1945 Admit: 12/02/2023 Interval History: 12/04/23: Transferred to SICU overnight for unstable afib w/ RVR, hypotension. Cardioverted prior to transfer. Now in NSR, on 0.08 of norepi, 0.5 amio gtt. 4L NC. WBC 12.2, H/H 9.9/30.0, Cr 0.80 Drain 1: 150 (400). Worked with PT yesterday prior to episode of hemodynamic instability. Recs for IPR. Plan: d/c bedoya when mobilizing. Custom TLSO when up and OOB. Upright scoli XRs when able. PT/OT. Maintain drain. Lovenox to start tonight. Objective Vitals: 24hr Min/Max: Temp Min: 36.7 ??C (98 ??F) Max: 37.9 ??C (100.2 ??F) Pulse Min: 60 Max: 174 BP Min: 68/50 Max: 119/55 Resp Min: 8 Max: 23 SpO2 Min: 89 % Max: 100 % I/O last 2 completed shifts: In: 4821 [P.O.:2210; I.V.:631; IV Piggyback:1980] Out: 1670 [Urine:1270; Drains:400] No intake/output data recorded. Physical Exam: Gen: no acute distress Neuro: A&Ox3 Dressing: clean/dry/intact Wound Vac(s): Not applicable Hemo Vac(s): Holding suction nicely, no apparent leaks Motor: Muscle Strength Right Left Shoulder abduction (C5) 5/5 5/5 Elbow flexion (C5/6) 5/5 5/5 Elbow extension (C7) 5/5 5/5 Wrist extension (C6) 5/5 5/5 Wrist flexion (C7) 5/5 5/5 Leave Manager (C8) 5/5 5/5 Interosseous of hand (T1) 5/5 5/5 Iliopsoas (L2/3) 4/5 (painful) 4/5 (painful) Quadriceps (L3/4) 4+/5 4+/5 Tibialis anterior (L4/5) 5/5 5/5 Extensor hallicus longus (L5) 5/5 5/5 Gastrocsoleus complex (S1) 5/5 5/5 Sensation Left upper extremity: SILT C5 to T1 dermatomes. Right upper extremity: SILT C5 to T1 dermatomes. Left lower extremity: SILT L2 to S1 dermatomes. Right lower extremity: SILT L2 to S1 dermatomes. Reflexes: Symmetric bilaterally Long-tract signs: <2 beats clonus BLE Vascular: Bilateral Upper Extremity: 2+ radial pulse, fingers WWP Bilateral Lower Extremity: 2+ DP pulse, toes WWP Lab/Diagnostic Review: Recent Labs Lab Units 12/04/23 0709 12/03/23 2318 12/03/23 2246 12/03/23210612/03/23 21012/03/23 21012/03/23 0353 SODIUM mmol/L -- -- -- -- -- 137 141 POTASSIUM PLASMA mmol/L -- -- -- -- -- 4.3 4.2 CHLORIDE mmol/L -- -- -- -- -- 104 109 CO2 mmol/L -- -- -- -- -- 26 28 CO2 POC mmol/L -- -- -- -- 26 -- -- ANIONGAP mmol/L -- -- -- -- -- 7 4 GLUCOSE mg/dL -- -- -- -- -- 110 132 POC GLUCOSE MONITOR mg/dL 115 < > 141 -- -- -- -- BUN SERUM mg/dL -- -- -- -- -- 14 12 CREATININE mg/dL -- -- -- -- -- 0.80 0.65 CALCIUM mg/dL -- -- -- -- -- 8.1* 7.7* ALBUMIN g/dL -- -- -- -- -- 3.2* 3.3* ALK PHOS Units/L -- -- -- -- -- 99 95 ALT Units/L -- -- -- -- -- 131* 183* AST Units/L -- -- -- -- -- 197* 218* BILIRUBIN TOTAL mg/dL -- -- -- -- -- 0.6 0.5 WBC K/cumm -- -- -- 12.2* -- -- 11.4* HEMOGLOBIN, POC g/dL -- -- 9.9* -- -- -- -- HEMOGLOBIN g/dL -- -- -- 10.2* -- -- 10.3* HEMATOCRIT % -- -- -- 29.4* -- -- 30.6* HEMATOCRIT POC % -- -- 30.0* -- -- -- -- PLATELETS K/cumm -- -- -- 180 -- -- 195 NEUTROS PCT % -- -- -- 77.4 -- -- -- LYMPHS PCT % -- -- -- 11.2 -- -- -- MONOS PCT % -- -- -- 7.3 -- -- -- EOS PCT % -- -- -- 3.0 -- -- -- APTT sec -- -- -- -- -- -- 26* INR -- -- -- -- -- -- 1.04 < > = values in this interval not displayed. Micro: Lab Results Component Value Date MICROBIOLOGY Preliminary Report: No growth to date. 12/02/2023 Assessment and Plan: Macie Briseno is a 78 y.o. female with thoracolumbar pseudoarthrosis, now s/p revision [id number], T12/L1, L1/L2 PCOs. Post-operative course complicated by afib with RVR and hemodynamic instability, now stabilized in SICU. Appreciate ongoing SICU care. Consults: None Meds: Multimodal pain Results: N/A Drains / bedoya: Deep/superficial / Continue bedoya ASA / PLX / Anticoag: SCDs, ambulatory. Lvx POD2 Incision / Brace: monocryl, dermabond, tegaderm /custom TLSO Dispo / FU: 12/22 CAM6B Isabelle Deleon MD Department of Orthopaedic Surgery, PGY-3 [facility] Please call with questions during daytime. See below for overnight issues. If you know the resident's name on the appropriate orthopaedic surgery team, please use [email or web address] to page resident directly. If questions arise and the appropriate resident can't be reached or you are calling overnight, please contact [phone] (North- 7:30 PM - 6:30 AM - Floor Resident) or [phone] (24 hours/day - Consult Resident) Cosigned by Jeremy Michelle MD at 12/05/2023 8:44 AM CDT Associated attestation - Jeremy Michelle MD - 12/05/2023 8:44 AM CDT I have seen and examined the patient on 12/04/2023. I agree with the findings and plan of care as documented in the resident's/fellow's note.. Doing well when I see her. Remains intact BL UE and LE. Now in NSR and more comfortable. Pressors weaning. TLSO was very tight and I had to loosen today. Patient not passing and flatus, ab soft - rec KUB ifno flatus, tolerating sips. Films look outstanding- need upright standing when able. Jeremy Michelle MD PhD Attending Spine Surgeon Supervisor [employer] of Orthopaedic and Neurological Surgery [facility] * Len Klein PA - 12/04/2023 6:53 AM CDTAssociated Order(s): Critical Care Post-Procedure Diagnose(s): Atrial fibrillation with RVR (CMS/HCC) (HCC) Images from the original note were not included. ICU Daily Progress Team: Blue AM Subjective Patient is a 78 y.o. female admitted to SICU from floor 2/2 afib RVR c/b hypotension requiring electrical cardioversion. Post-op day 2 from X72-hypaso PSF. PMH: Hypertension, Hyperlipidemia, CAD, CHF, RBBB, A-fib with dual lead ICD, chronic pain, PALA withcochlear implant Interval History: - NE for SBP >120 - TTE, CXR - Cardiology c/s - Trend troponin, check BNP - Diet - Check AM electrolytes - Phos repletion - Reviewed and ordered pertinent laboratory tests. Reviewed any radiological imaging pertinent to patients current treatments. Constant evaluation of I/O's, vitals and oxygen requirements throughout shift. Multiple bedside evaluations of patients over all status. Brief Hospital Course: 12/01: [id number] PSIF 12/02: (pm) afib rvr/SVT, rates to 160's, received 325 mg ASA & SL NTG 2/ c/f STEMI, became hypotensive, amio bolus + gtt, emergency DCCV, HR briefly 70-80's then 120-130's, TTSICU 12/03: Cardiology c/s Objective Physical Exam: Physical Exam Constitutional: General: She is awake. She is not in acute distress. Appearance: She is not ill-appearing or diaphoretic. Cardiovascular: Rate and Rhythm: Normal rate and regular rhythm. Pulses: Normal pulses. Heart sounds: No murmur heard. No friction rub. Pulmonary: Effort: Pulmonary effort is normal. No respiratory distress. Abdominal: General: There is no distension. Palpations: Abdomen is soft. Tenderness: There is no abdominal tenderness. Skin: General: Skin is warm and dry. Neurological: Mental Status: She is oriented to person, place, and time. Mental status is at baseline. She is lethargic. Medications Scheduled Meds:[START ON 12/07/2023] alendronate, 70 mg, oral, Q7 Days bisacodyL, 10 mg, rectal, Daily cholecalciferol, 2,000 Units, oral, QAM [Held by Provider] dilTIAZem XR, 180 mg, oral, QAM DULoxetine DR, 60 mg, oral, QAM [Held by Provider] furosemide, 40 mg, oral, BID insulin lispro, 1-5 Units, subcutaneous, Q4H ELAINA multivitamin therapeutic, 1 tablet, oral, Daily pantoprazole DR, 40 mg, oral, Daily senna-docusate, 2 tablet, oral, BID sodium chloride 0.9%, 0.5-20 mL, intra-catheter, Q8H ELAINA Continuous Infusions:amiodarone, 0.5 mg/min, Last Rate: 0.5 mg/min (12/04/23 0600) dextrose 5% and Lactated Ringer's, 25 mL/hr, Last Rate: 25 mL/hr (12/04/23 0500) norepinephrine, 0-2 mcg/kg/min, Last Rate: 0.08 mcg/kg/min (12/04/23623) sodium chloride 0.9%, 3-12 mL/hr, Last Rate: 3 mL/hr (12/04/23 0500) PRN Meds:.??? acetaminophen ??? baclofen ??? bisacodyl EC ??? sodium chloride 0.9% ??? dextrose OR dextrose ??? doxepin ??? fluticasone propionate ??? glucagon ??? magnesium hydroxide ??? mineral oil ??? naloxone ??? nitroglycerin ??? ondansetron ??? oxyCODONE ??? prochlorperazine ??? sodium chloride 0.9% Vital signs for last 24 hours: Temp: [36.7 ??C (98 ??F)-37.9 ??C (100.2 ??F)] 37.9 ??C (100.2 ??F) Pulse: [60-174] 63 BP: (68-119)/(33-91) 100/55 Resp: [8-23] 19 SpO2: [89 %-100 %] 99 % Arterial Line BP: (91-148)/(38-68) 109/43 Hemodynamics: MAP (mmHg): [46-94] 62 Pulmonary Support: O2 Therapy: Supplemental oxygen O2 Del Method: Nasal cannula O2 Flow Rate (L/min): 4 L/min Intake/Output: Intake/Output Summary (Last 24 hours) at 12/04/2023 0653 Last data filed at 12/04/2023 0600 Gross per 24 hour Intake 5731 ml Output 1670 ml Net 4061 ml Labs reviewed: Recent Results (from the past 12 hour(s)) Comprehensive metabolic panel Collection Time: 12/03/23 9:05 PM Result Value Ref Range Sodium 137 135 - 145 mmol/L Potassium, pl 4.3 3.3 - 4.9 mmol/L Chloride 104 97 - 110 mmol/L CO2 26 22 - 32 mmol/L Anion gap 7 2 - 15 mmol/L BUN 14 6 - 25 mg/dL Creatinine 0.80 0.60 - 1.10 mg/dL Glucose 110 70 - 199 mg/dL Calcium 8.1 (L) 8.5 - 10.3 mg/dL Bilirubin, total 0.6 0.1 - 1.2 mg/dL Protein, pl 5.6 (L) 6.5 - 8.5 g/dL Albumin 3.2 (L) 3.5 - 5.0 g/dL Alk phos 99 40 - 130 Units/L ALT 131 (H) 7 - 45 Units/L AST 197 (H) 10 - 45 Units/L Bilirubin, direct Collection Time: 12/03/23 9:05 PM Result Value Ref Range Bilirubin, direct <0.2 0.1 - 0.3 mg/dL Magnesium Collection Time: 12/03/23 9:05 PM Result Value Ref Range Magnesium 2.2 1.4 - 2.5 mg/dL eGFR Collection Time: 12/03/23 9:05 PM Result Value Ref Range eGFR 76 >=60 mL/min/1.73 m2 Arterial Blood gas w/Lactate POCT Collection Time: 12/03/23 9:06 PM Result Value Ref Range Lactate POC i-STAT 0.7 0.7 - 2.2 mmol/L pH POC 7.41 7.35 - 7.45 pCO2, Art POC 40 35 - 45 mmHg PO2 POC 61 (L) 80 - 105 mmHg CO2, total POC 26 20 - 30 mmol/L HCO3, POC 25 21 - 30 mmol/L BE POC 0 -2 - 3 mmol/L O2 sat POC 91 (L) 95 - 98 % Troponin I high-sensitivity Collection Time: 12/03/23 9:07 PM Result Value Ref Range Trop I hs 94 (H) <=17 ng/L CBC with auto differential Collection Time: 12/03/23 9:07 PM Result Value Ref Range WBC 12.2 (H) 3.8 - 9.9 K/cumm Hgb 10.2 (L) 11.9 - 15.5 g/dL Hct 29.4 (L) 35.6 - 45.5 % Plt 180 150 - 400 K/cumm MPV 10.4 9.1 - 12.3 fL RBC 3.40 (L) 3.90 - 5.20 M/cumm MCV 86.5 81.3 - 96.4 fL MCH 30.0 27.1 - 33.3 pg MCHC 34.7 32.3 - 35.7 g/dL RDW CV 15.1 (H) 11.1 - 14.9 % RDW SD 48.3 (H) 35.7 - 48.1 fL NRBC abs 0.00 0.00 - 0.01 K/cumm Differential, auto Collection Time: 12/03/23 9:07 PM Result Value Ref Range Neutrophil abs 9.4 (H) 1.5 - 6.5 K/cumm Imm gran abs 0.1 0.0 - 0.1 K/cumm Lymphocyte abs 1.4 0.8 - 3.3 K/cumm Monocyte abs 0.9 (H) 0.2 - 0.8 K/cumm Eosinophil abs 0.4 0.0 - 0.5 K/cumm Basophil abs 0.1 0.0 - 0.1 K/cumm Neutrophil pct 77.4 % Imm gran pct 0.7 % Lymphocyte pct 11.2 % Monocyte pct 7.3 % Eosinophil pct 3.0 % Basophil pct 0.4 % Calcium, ionized Collection Time: 12/03/23 9:09 PM Result Value Ref Range Calcium, Ionized 4.35 (L) 4.50 - 5.10 mg/dL POC Blood Gas and Chemistries, Arterial - Collection Time: 12/03/23 10:46 PM Result Value Ref Range pH, Art POC 7.38 7.35 - 7.45 pCO2, Art POC 49 (H) 35 - 45 mmHg pO2, Art POC 81 (L) 83 - 108 mmHg Na, POC 135 135 - 145 mmol/L K POC 3.8 3.3 - 4.9 mmol/L Cl, POC 105 97 - 110 mmol/L Ionized Ca, POC 4.71 4.50 - 5.10 mg/dL Glucose, POC 141 70 - 199 mg/dL Lactate, POC 1.2 0.7 - 2.2 mmol/L SO2 (alexsander) arterial 99 (H) 90 - 95 % Base excess, POC 3.2 mmol/L HCO3, Art POC 29 20 - 30 mmol/L Hct, POC 30.0 (L) 36.3 - 45.3 % O2 Sat, Art POC (Calc) 96 % Total Hb, POC 9.9 (L) 11.9 - 15.5 g/dL Blood gas, arterial Collection Time: 12/03/23 10:59 PM Result Value Ref Range pH, Art 7.35 7.35 - 7.45 PCO2, Arterial 45 35 - 45 mmHg PO2, Arterial 147 (H) 83 - 108 mmHg HCO3 Art (Calculated) 25 20 - 30 mmol/L BE, art -1 mmol/L O2 Sat Art (Measured) 100 (H) 90 - 95 % Lactate Collection Time: 12/03/23 10:59 PM Result Value Ref Range Lactate 1.3 0.7 - 2.0 mmol/L POCT glucose Collection Time: 12/03/23 11:18 PM Result Value Ref Range Glucose, POC 123 70 - 199 mg/dL POCT glucose Collection Time: 12/04/23 3:26 AM Result Value Ref Range Glucose, POC 104 70 - 199 mg/dL Imaging reviewed: XR Scoliosis Ap Lat Result Date: 12/02/2023 1. Intraoperative radiographs demonstrating ongoing posterior instrumented spinal fusion revision. Electronically signed by: Edgar Pichardo M.D. Assessment/Plan: Neurologic: # Acute Post-op Pain: - PRN APAP, robaxin, oxy # Depression, chronic # Anxiety, chronic - Home duloxetine - Home PRN ativan QHS # Thoracolumbar Pseudoarthrosis, POA S/p multiple previous spine surgeries now s/p (12/01) [id number] PSIF - Ortho-spine primary - Follow drain output Cardiovascular: # Elevated Troponin Troponin 94 > 14,000. Pt denies CP/SOB/other ACS symptoms - Cardiology c/s, f/u recommendations - Trend troponin until peak - Serial EKG # Acute Afib RVR/SVT # Paroxysmal atrial fibrillation, chronic Home meds: dilt-XR 180 mg daily, lasix 40 mg BID, metop 25 mg IR BID, Eliquis 5 mg BID. S/p [employer] dual lead AV ICD w/ pacing function placement 05/2021 for VT/VF primary prevention - Cardiology following - S/p DCCV 12/02 during ACT w/ brief conversion to paced rhythm before reverting back into irregularrhythm w/ rates 110's-120's. Given amio bolus, gtt started - Continue amio gtt - Optimize electrolytes - TTE ordered # RBBB, chronic # AV block, 2nd Degree, chronic # Hypertrophic Cardiomyopathy, chronic Follows w/ [facility] Dr. Talbert, [employer] Dr. Recio - AICD in place - EKG in 07/2023 in sinus rhythm; 12/02 1400 NSR, 12/02 (pm) Afib with RVR w/ hypotension requiring electrical cardioversion, amio bolus/infusion - Cardiology following # Undifferentiated Shock Possibly cardiogenic - NE for SBP >120 - Received 1.5 L crystalloid overnight Pulmonary: # Acute respiratory insufficiency 2/ afib RVR/SVT - Currently on 4L NC - Wean for spo2>92% GI: Diet: Regular diet RENAL: - Bedoya in place w/ adequate UOP HEME: DVT PPx: lovenox # ABLA / surgery - Hgb stable, monitor daily CBC, transfuse for Hgb <7 and/or hemodynamic instability w/ active bleeding ID: # Leukocytosis Likely reactive - Postop abx complete - Trend WBC, monitor fever curve Intensive Care Unit Standards of Care: Diet: regular Restraints: n/a Vascular access: PIV, radial elmira Goals of care: full code Assessment and plan has been reviewed with ICU fellow and attending. Len Klein PA-C Critical Care Performed by: Len Klein PA Authorized by: Len Klein PA CRITICAL CARE: Team: SICU BLUE Shift: AM Level of Billing: Critical Care My time spent with this patient was 125 minutes: Critical Provider Statement: I have seen and examined the patient on this day of service. I have reviewed and confirmed the history, physical exam, laboratory and radiologic data as documented in thesigned ICU note. I have reviewed and discussed my treatment plan with the ICU team and other medical/lead consultant staff, making frequent assessments and decisions regarding this patient's complex medical care. Critical Care time was exclusive of time spent performing separately billed procedures, treating other patients, and teaching. This time was in addition to and separate from critical care provided by other practitioners in my group on this day of service. Critical Care was necessary to treat or prevent imminent or life-threatening deterioration of the following conditions: Cosigned by Kaley Anderosn MD at 12/07/2023 9:08 AM CDT * Jeremy Michelle MD - 12/03/2023 11:10 PM CDT Patient seen and examined by me after ACT called for tachycardia, abnormal EKG and hypotension. Sheis now drowsy but rousable and intact at baseline in UE and LE after undergoing one cardioversion. In atrial tachycardia when I see her and converted out of it twice while I was at the bedside. ICU team titrating pressors and correcting any electrolyte abnormality/fluids/etc. Has already been seen by floriculture teacher. Echo/EKG completed. Has known hx of afib with recent history - pacemaker/ICD. I discussed care with patient's and with Attending in the ICU who was also at bedside. Patient now appears more stable with ongoing efforts from ICU team. Appreciate outstanding care from our ICU colleagues and cardiology colleagues. All questions answered of patient's spouse. Please reach out with any updates/changes. [phone] Jeremy Michelle MD PhD Attending Spine Surgeon Supervisor [employer] of Orthopaedic and Neurological Surgery [facility] * Gisel Esquivel OT - 12/03/2023 12:55 PM CDT Occupational Therapy 12/03/23 1254 General OT Missed Visit Reason Family declined;Patient declined (Pt and family member declined participation in OT at this time. Stated pt recently had a panic attack and received medication that is making her too sleepy to participate. Verbalized understanding that OT would not be able to check back today) * Belén Alvarez PT - 12/03/2023 11:51 AM CDT Physical Therapy Physical Therapy Evaluation Note NOTE: This is a summary note of the khanna components of the evaluation session. For full details, review chart for all flowsheets documented on by this physical therapy clinician on this date. Vital signs are documented in the vital signs flowsheet. For questions, please review the treatment team and contact the PT or CHIPPER currently assigned to this patient. If a physical therapy clinician is not assigned to this patient, please call [phone]. 12/03/23 1151 General Chart Reviewed Yes Session Type Evaluation PT Received On 12/03/23 Safe Environment Arm band checked;Patient found in supine;Session completed bedside;Gait belt utilized for all out of bed mobility Subjective Agreeable to Therapy Family/Caregiver Present Yes (spouse) Physical Therapy-Patient Goal Pt wants to be able to walk on her own again. Precautions Precautions Fall risk;Spinal/Back Home Living Type of Home House Home Layout Multi-level (stair lift) Home Access Level entry Home Mobility Equipment-Available Wheeled walker;Single point cane Home Mobility Equipment-Currently Using None Prior Function Level of [place] Independent functional transfers;Independent with ambulation Lives With Spouse Receives Help From Spouse/Significant other (FT) Fall within the last 6 months No Pain Assessment Pain Assessment 0-10 Pain Score 10 - Worst possible pain Pain Location Back (Lumbar) Pain Interventions RN Notified Cognition Arousal/Alertness Alert;Appropriate responses to stimuli Orientation Oriented X4 (person, place, time, situation) Following Commands Follows all commands and directions without difficulty Sensation Light Touch WFL (B LE) Sensation Comments bilateral LE skin integrity intact Balance Tests Balance Tests Yes Erickson Balance Scale 1. Sitting to Standing 0 2. Standing Unsupported 0 3. Sitting with Back Unsupported but Feet Supported on Floor or on a Stool 3 4. Standing to Sitting 0 5. Transfers 1 6. Standing Unsupported with Eyes Closed 0 7. Standing Unsupported with Feet Together 0 8. Reach Forward with Outstretched Arm While Standing 0 9. Model Dresser Object from Floor from a Standing Position 0 10. Turning to Look Behind Over Left and Right Shoulders While Standing 0 11. Turn [address] Altern[address] Foot on Step or Stool While Standing Unsupported 0 13. Standing Unsupported One Foot in Front 0 14. Standing on One Leg 0 Erickson Balance Score 4 Balance Balance Yes Static Sitting Balance Static Sitting-Balance Support No upper extremity supported;Feet supported Static Sitting-Sitting Surface Bed Static Sitting-Level of Assistance Close supervision Static Standing Balance Static Standing-Balance Support No upper extremity supported Static Standing-Standing Surface Floor Static Standing-Level of Assistance Moderate assistance Bed Mobility Bed Mobility Yes Bed Mobility 1 Bed Mobility From 1 Supine Bed Mobility Type 1 To Bed Mobility to 1 Edge of bed Level of Assistance 1 Minimum Assist Bed Mobility Comments 1 assist with elevation of trunk and maneuvering LEs Transfers Transfer Yes Transfer 1 Transfer From 1 Sit Transfer Type 1 To and from Transfer to 1 Stand Technique 1 Sit to stand;Stand to sit Transfer Device 1 No device Transfer Level of Assistance 1 Moderate Assist Trials/Comments 1 decreased force production, decreased balance Transfers 2 Transfer From 2 Bed Transfer Type 2 To Transfer to 2 Chair with arms Technique 2 Stand and step Transfer Device 2 Hand held assist Transfer Level of Assistance 2 Moderate Assist Trials/Comments 2 decreased force production, decreased balance, B LE blocked, knees buckle Ambulation Ambulation No Stairs Stairs No RUE Assessment RUE Assessment WFL LUE Assessment LUE Assessment WFL RLE Assessment RLE Assessment WFL LLE Assessment LLE Assessment WFL Basic Mobility - 6 Click How much difficulty does the patient have: Turning over in bed 3 How much difficulty does the patient currently have: Sitting down and standing up from a chair witharms? 2 How much difficulty does the patient have: Moving from lying on back to sitting on the side of the bed? 3 How much difficulty does the patient have: Moving to and from a bed to a chair including wheelchair? 2 How much help does the patient currently need: Walk in hospital room? 2 How much help from another person does the patient currently need: Climbing 3-5 steps with a railing? 1 Total 6 Click Score (range 6-24) 13 Score Interpretation 33.99 Safe Environment End of Therapy Session Safe Environment End of Therapy Session Call light within reach;Bed in lowest position with wheels locked;Patient left in recliner Assessment Problem List Gait deviations;Decreased strength;Decreased range of motion;Decreased endurance;Impaired balance;Decreased mobility Problem List Comments PT Diagnosis: Revision PSF [id number], decompression results in above listed activity deficits and impairments which prevent full participation in home and community mobility Plan Plan If this is the last note, consider this the discharge summary;Plan of care initiated Recommendation/Plan PT Recommendation/Plan Inpatient Rehab Facility Patient at high risk for Falls;Injury due to reduced functional status;Injury due to balance deficits Recommend Inpatient Rehab/Acute Rehab due to Ability to actively participate in intensive therapy 3hours/day, 5 days/week or 900 minutes per week;Impaired ability to complete functional mobility;Requires greater than 25% physical assistance with most mobility tasks;Requires skilled therapy interventions to address neurological deficits PT Frequency during current admission 5-7x/wk Treatment/Interventions during current admission Balance Training;Bed mobility;Functional activity;Functional transfer training;Gait training;Neuromuscular re-education;Strengthening;Therapeutic activ ity;Therapeutic exercise PT - Next Appointment 12/04/23 PT Evaluation Complete Yes Multi-Disciplinary Problems (from Physical Therapy) Active Problems Problem: Mobility Start Date: 12/03/23 Goal Start Date Expected End Date End Date LTG - Patient will ambulate household distance 12/03/23 12/10/23 -- Goal Start Date Expected End Date End Date STG - Patient will ambulate 12/03/23 12/10/23 -- Problem: Transfers Start Date: 12/03/23 Goal Start Date Expected End Date End Date STG - Transfer from bed to chair 12/03/23 12/10/23 -- Goal Start Date Expected End Date End Date STG - Patient to transfer to and from sit to supine 12/03/23 12/10/23 -- Goal Start Date Expected End Date End Date STG - Patient will transfer sit to and from stand 12/03/23 12/10/23 -- * Isabelle Deleon MD - 12/03/2023 7:39 AM CDT Orthopaedic Spine Service Daily Progress Note Admit Date: 12/02/2023 Hospital Day: 1 Michelle Dx: Pseudoarthrosis PMH: HTN, HLD, CAD, CHF, RBBB, A-fib with dual lead ICD, chronic pain, PALA with cochlear implant Proc: 12/01 Revision PSF [id number], decompression Exam: Normal motor exam. SILT. : 1945 Admit: 12/02/2023 Interval History: 12/03/23: AFVSS, JUDI. WBC 11.4, H/H 10.3/30.6, Cr 0.65 Drain 1: 30 (200). Pain well controlled this AM. Has not yet worked with PT/OT. Plan to maintain bedoya until mobilizing, upright scoli XRs when able. Maintain drain. Custom TLSO - should receive today. Okay to be up and out of bed without brace until it arrives. Once it arrives, okay to be off when in bed. Objective Vitals: 24hr Min/Max: Temp Min: 36.2 ??C (97.2 ??F) Max: 36.4 ??C (97.6 ??F) Pulse Min: 60 Max: 85 BP Min: 93/51 Max: 149/120 Resp Min: 10 Max: 26 SpO2 Min: 93 % Max: 100 % I/O last 2 completed shifts: In: 3732 [I.V.:3020; IV Piggyback:712] Out: 4045 [Urine:3495; Drains:200; Blood:350] No intake/output data recorded. Physical Exam: Gen: no acute distress Neuro: A&Ox3 Dressing: clean/dry/intact Wound Vac(s): Not applicable Hemo Vac(s): Holding suction nicely, no apparent leaks Motor: Muscle Strength Right Left Shoulder abduction (C5) 5/5 5/5 Elbow flexion (C5/6) 5/5 5/5 Elbow extension (C7) 5/5 5/5 Wrist extension (C6) 5/5 5/5 Wrist flexion (C7) 5/5 5/5 Leave Manager (C8) 5/5 5/5 Interosseous of hand (T1) [...] lower extremity: SILT L2 to S1 dermatomes. Reflexes: Symmetric bilaterally Long-tract signs: <2 beats clonus BLE Vascular: Bilateral Upper Extremity: 2+ radial pulse, fingers WWP Bilateral Lower Extremity: 2+ DP pulse, toes WWP Lab/Diagnostic Review: Recent Labs Lab Units 12/03/23 0353 SODIUM mmol/L 141 POTASSIUM PLASMA mmol/L 4.2 CHLORIDE mmol/L 109 CO2 mmol/L 28 ANIONGAP mmol/L 4 GLUCOSE mg/dL 132 BUN SERUM mg/dL 12 CREATININE mg/dL 0.65 CALCIUM mg/dL 7.7* ALBUMIN g/dL 3.3* ALK PHOS Units/L 95 ALT Units/L 183* AST Units/L 218* BILIRUBIN TOTAL mg/dL 0.5 WBC K/cumm 11.4* HEMOGLOBIN g/dL 10.3* HEMATOCRIT % 30.6* PLATELETS K/cumm 195 APTT sec 26* INR 1.04 Micro: No results found for: MICROBIOLOGY Assessment and Plan: Macie Briseno is a 78 y.o. female with thoracolumbar pseudoarthrosis, now s/p revision [id number], T12/L1, L1/L2 PCOs. Consults: None Meds: Multimodal pain Results: N/A Drains / bedoya: Deep/superficial / Continue bedoya ASA / PLX / Anticoag: SCDs, ambulatory. Lvx POD2 Incision / Brace: monocryl, dermabond, tegaderm /custom TLSO Dispo / FU: 12/22 CAM6B Isabelle Deleon MD Department of Orthopaedic Surgery, PGY-3 [facility] [place]/[facility] Please call with questions during daytime. See below for overnight issues. If you know the resident's name on the appropriate orthopaedic surgery team, please use [email or web address] to page resident directly. If questions arise and the appropriate resident can't be reached or you are calling overnight, please contact [phone] (North- 7:30 PM - 6:30 AM - Floor Resident) or [phone] (24 hours/day - Consult Resident) Cosigned by Jeremy Michelle MD at 12/03/2023 8:10 PM CDT Associated attestation - Jeremy Michelle MD - 12/03/2023 8:10 PM CDT I have seen and examined the patient on 12/03/23. I agree with the findings and plan of care as documented in the resident's/fellow's note.. Doing very well post op. Intact BL UE and LE. Pain controlled - will try 1-2 doses toradol as narcotics lowered as she has had lower blood pressures. Needs upright scoli xrays AP and lat. Jeremy Michelle MD PhD Attending Spine Surgeon Supervisor [employer] of Orthopaedic and Neurological Surgery [facility] * Janet Genao MD - 12/02/2023 8:12 PM CDT Orthopaedic Surgery Compartment Check December 02, 2023 8:12 PM Admit Date: 12/02/2023 Hospital Day: 0 Michelle Dx: Pseudoarthrosis PMH: HTN, HLD, CAD, CHF, RBBB, A-fib with dual lead ICD, chronic pain, PALA with cochlear implant Proc: Revision PSF [id number], decompression Exam: Normal motor exam. SILT. : 1945 Admit: 12/02/2023 Edited by: Latisha Retana NP at 12/02/2023 1533 LUE compartment check performed at bedside on on the floor. Prior to entering room, patient was laying down in bed, comfortably. Gen: NAD. A&O: x3 Upon examination, pain is moderately controlled, sensation intact to light touch in the median, radial, ulnar, and axillary distributions, wiggles fingers, palpable radial pulses, fingers WWP, compartments soft and compressible, no pain on passive stretch. Denies paresthesias, numbness or tingling,or complete loss of sensation in distal extremity. Symptoms of compartment syndrome discussed with patient, patient understands what symptoms to look out and alert us for. Assessment: No current concern for compartment syndrome. No further compartment checks scheduled. Please page or call with concerns or significant change in exam Cammy Genao M.D (Madeline). Orthopaedic Surgery Resident, PGY-1 For questions please reach out to: Abhijeet 7:30p-6:30a (Night Floor Resident): [phone] Consult Resident: [phone] Specific Resident: [email or web address] to page/call appropriate Orthopaedic Surgery Team/Resident Call Schedule: [facility] for [facility] Orthopaedic Surgery (pw: Wusm [facility]) For ortho primary adult patients, Thu - Thu-6p: Call [phone] nurses station for PA/FIELD SERVICE REP ([phone]) For ortho primary pediatric patients, Thu-6p: Call 10th floor nurses station for FIELD SERVICE REP Cosigned by Jeremy Michelle MD at 12/05/2023 1:40 PM CDT documented in this encounter H&P Notes * Juanito Sanchez NP - 12/03/2023 10:19 PM CDTAssociated Order(s): Critical Care Images from the original note were not included. ICU History and Physical Team: Blue PM Subjective Patient is a 78 y.o. female presented to the ICU with chief complaint of atrial fibrillation with RVR c/b hypotension requiring electrical cardioversion. HPI: 78yo with history of multiple spine surgeries and worsening kyphosis who presented for scheduled revision with [id number] PSF. She was admitted to the floor postoperatively. This PM, the patient's HR went into atrial fibrillation vs atrial flutter with associated hypotension into the 60s. ACT team and cardiology were called. Amio infusion bolus and infusion were started.Because of persistent HR into the 170s and SBP as low as 60, electrical cardioversion was performedwith HR improvement into the 120s. Norepinephrine was started for hypotension. She was transferred t o the SICU for further management. PMH: Hypertension, Hyperlipidemia, CAD, CHF, RBBB, A-fib with dual lead ICD, chronic pain, PALA withcochlear implant Acute events: -1.5L crystalloid -Elmira placed -Continue amiodarone infusion -Wean NE for MAP >65 -Replete electrolytes -Reviewed and ordered pertinent laboratory tests. -Reviewed any Radiological imaging pertinent to patients current treatments. -Constant evaluation of I/O's, vitals and oxygen requirements throughout shift. -Multiple bedside evaluations of patients over all status. Past Medical History: Diagnosis Date Allergic rhinitis Anxiety unknown maybe 1989 Arthritis 2018 Atrial fibrillation (CMS/HCC) (HCC) Auditory vertigo Meniere's disease Coronary artery disease Depression 1989 Heart disease Afib 2019 HL (hearing loss) HLD (hyperlipidemia) Meniere's disease Microvascular angina (HCC) Mixed conductive and sensorineural hearing loss 1989 Osteoporosis 2013 Tinnitus Past Surgical History: Procedure Laterality Date BACK SURGERY 2017 lower back, 2017, 2018 BRAIN SURGERY Left Ear cochlear implant 2019 CHOLECYSTECTOMY Cholecystectomy COCHLEAR IMPLANT Left 06/19/2020 IR INJECTION ARTHROGRAM SI JOINT BILATERAL WITH GUIDANCE Bilateral 02/15/2021 IR INJECTION ARTHROGRAM SI JOINT LEFT INCLUDES IMAGING GUIDANCE Left 09/06/2021 JOINT REPLACEMENT Hip replacement, L - 2013, R - 2014 - Nataliya OTHER SURGICAL HISTORY 1998 Sectioning of left vesibular nerve SPINE SURGERY 2016, 2017, 2018, 2019 TOTAL HIP ARTHROPLASTY Bilateral 2014 VESTIBULAR NERVE SECTION Left Medications Prior to Admission Medication Sig Dispense Refill Last Dose acetaminophen (TYLENOL) 500 mg tablet Take 2 tablets (1,000 mg total) by mouth every 6 (six) hours as needed for pain 12/01/2023 ALPRAZolam (XANAX) 0.25 mg tablet Take 1 tablet (0.25 mg total) by mouth nightly as needed for anxiety (Patient taking differently: Take 1 tablet (0.25 mg total) by mouth nightly as needed for anxiety) 90 tablet 0 12/01/2023 atorvastatin (LIPITOR) 20 mg tablet Take 1 tablet (20 mg total) by mouth nightly Past Week DILT-XR 180 mg 24 hr capsule Take 1 capsule (180 mg total) by mouth every morning 12/02/[address] (CYMBALTA) 60 mg capsule Take 1 capsule (60 mg total) by mouth every morning 12/02/2023 fluticasone (FLONASE) 50 mcg/actuation nasal spray inhale 1 spray (50MCG) by intranasal route everyday in each nostril (Patient taking differently: Administer 1 spray into each nostril as needed forrhinitis or allergies) 0 12/01/2023 furosemide (LASIX) 20 mg tablet TAKE 1 TABLET(20 MG) BY MOUTH DAILY (Patient taking differently: Take 2 tablets (40 mg total) by mouth 2 (two) times a day) 30 tablet 3 12/02/2023 HYDROcodone-acetaminophen (NORCO) 5-325 mg per tablet Take 1 tablet by mouth every 6 (six) hours asneeded for pain 12/01/2023 metoprolol tartrate (LOPRESSOR) 25 mg immediate release tablet TAKE 1 TABLET(25 MG) BY MOUTH TWICE DAILY (Patient taking differently: Take 1 tablet (25 mg total) by mouth 2 (two) times a day) 180 tablet 1 12/02/2023 alendronate (FOSAMAX) 70 mg tablet Take 1 tablet (70 mg total) by mouth every 7 days Thursday11/30/2023 azelastine (ASTELIN) 137 mcg (0.1 %) nasal spray Administer 1 spray into each nostril 2 (two) timesa day as needed for rhinitis or allergies 11/30/2023 CALCIUM ORAL Take 1 tablet by mouth every morning 11/17/2023 CHOLECALCIFEROL, VITAMIN D3, ORAL Take 1 tablet by mouth every morning 11/17/2023 doxepin (SINEquan) 25 mg capsule Take 1-2 capsules (25-50 mg total) by mouth nightly as needed for sleep 11/30/2023 Eliquis 5 mg tablet Take 1 tablet (5 mg total) by mouth 2 (two) times a day 11/24/2023 fexofenadine-pseudoephedrine (KIMBERLY-D) 60-120 mg per 12 hr tablet Take 1 tablet by mouth 2 (two) times a day as needed for allergies 11/30/2023 magnesium citrate 100 mg tablet Take 1 tablet by mouth every morning 11/17/2023 potassium chloride ER 20 mEq CR tablet Take 2 tablets (40 mEq total) by mouth every morning 11/17/2023 sucralfate (CARAFATE) 1 gram tablet Take 2 tablets (2 g total) by mouth 2 (two) times a day as needed (Patient not taking: Reported on 11/12/2023) More than a month Allergies Allergen Reactions Adhesive Rash and Blisters [...] Pseudochol deficiency Neg Hx Review of Systems: Review of Systems Vitals: Most Recent : Vitals: 12/03/232214 BP: 100/55 Pulse: 116 Resp: 17 Temp: 37.9 ??C (100.2 ??F) SpO2: 97% Hemodynamics: MAP (mmHg): [46-94] 62 Pulmonary Support: O2 Therapy: Supplemental oxygen O2 Del Method: Nasal cannula O2 Flow Rate (L/min): 4 L/min Intake/Output: Intake/Output Summary (Last 24 hours) at 12/03/20232219 Last data filed at 12/03/2023 220 Gross per 24 hour Intake 4205.97 ml Output 1235 ml Net 2970.97 ml Objective Physical exam: General: No Acute Distress, Hard of hearing Neuro: Alert, follows commands, moves all extremities well Cardiac: S1 and S2, Regular Rate and Rhythm, no M/G/R Pulmonary: Lungs clear to auscultation, respirations even/unlabored Abdominal: Soft/Nontender/Nondistended, normoactive bowel sounds Extremities: No edema, Pulses Present and Palpable Drains: AUDREY x1, Bedoya Wounds: Midline back incision Lab/Radiology/Diagnostic Review: Recent Results (from the past 24 hour(s)) CBC without differential Collection Time: 12/03/23 3:53 AM Result Value Ref Range WBC 11.4 (H) 3.8 - 9.9 K/cumm Hgb 10.3 (L) 11.9 - 15.5 g/dL Hct 30.6 (L) 35.6 - 45.5 % Plt 195 150 - 400 K/cumm MPV 9.9 9.1 - 12.3 fL RBC 3.54 (L) 3.90 - 5.20 M/cumm MCV 86.4 81.3 - 96.4 fL MCH 29.1 27.1 - 33.3 pg MCHC 33.7 32.3 - 35.7 g/dL RDW CV 15.1 (H) 11.1 - 14.9 % RDW SD 48.3 (H) 35.7 - 48.1 fL NRBC abs 0.00 0.00 - 0.01 K/cumm Comprehensive metabolic panel Collection Time: 12/03/23 3:53 AM Result Value Ref Range Sodium 141 135 - 145 mmol/L Potassium, pl 4.2 3.3 - 4.9 mmol/L Chloride 109 97 - 110 mmol/L CO2 28 22 - 32 mmol/L Anion gap 4 2 - 15 mmol/L BUN 12 6 - 25 mg/dL Creatinine 0.65 0.60 - 1.10 mg/dL Glucose 132 70 - 199 mg/dL Calcium 7.7 (L) 8.5 - 10.3 mg/dL Bilirubin, total 0.5 0.1 - 1.2 mg/dL Protein, pl 5.4 (L) 6.5 - 8.5 g/dL Albumin 3.3 (L) 3.5 - 5.0 g/dL Alk phos 95 40 - 130 Units/L ALT 183 (H) 7 - 45 Units/L AST 218 (H) 10 - 45 Units/L Protime-INR Collection Time: 12/03/23 3:53 AM Result Value Ref Range PT 11.9 10.3 - 13.7 sec INR 1.04 0.90 - 1.20 aPTT Collection Time: 12/03/23 3:53 AM Result Value Ref Range aPTT 26 (L) 28 - 38 sec eGFR Collection Time: 12/03/23 3:53 AM Result Value Ref Range eGFR >90 >=60 mL/min/1.73 m2 Magnesium Collection Time: 12/03/23 3:08 PM Result Value Ref Range Magnesium 2.2 1.4 - 2.5 mg/dL Phosphorus Collection Time: 12/03/23 3:08 PM Result Value Ref Range Phosphorus, pl 2.3 2.3 - 4.5 mg/dL Comprehensive metabolic panel Collection Time: 12/03/23 9:05 PM Result Value Ref Range Sodium 137 135 - 145 mmol/L Potassium, pl 4.3 3.3 - 4.9 mmol/L Chloride 104 97 - 110 mmol/L CO2 26 22 - 32 mmol/L Anion gap 7 2 - 15 mmol/L BUN 14 6 - 25 mg/dL Creatinine 0.80 0.60 - 1.10 mg/dL Glucose 110 70 - 199 mg/dL Calcium 8.1 (L) 8.5 - 10.3 mg/dL Bilirubin, total 0.6 0.1 - 1.2 mg/dL Protein, pl 5.6 (L) 6.5 - 8.5 g/dL Albumin 3.2 (L) 3.5 - 5.0 g/dL Alk phos 99 40 - 130 Units/L ALT 131 (H) 7 - 45 Units/L AST 197 (H) 10 - 45 Units/L Bilirubin, direct Collection Time: 12/03/23 9:05 PM Result Value Ref Range Bilirubin, direct <0.2 0.1 - 0.3 mg/dL Magnesium Collection Time: 12/03/23 9:05 PM Result Value Ref Range Magnesium 2.2 1.4 - 2.5 mg/dL eGFR Collection Time: 12/03/23 9:05 PM Result Value Ref Range eGFR 76 >=60 mL/min/1.73 m2 Arterial Blood gas w/Lactate POCT Collection Time: 12/03/23 9:06 PM Result Value Ref Range Lactate POC i-STAT 0.7 0.7 - 2.2 mmol/L pH POC 7.41 7.35 - 7.45 pCO2, Art POC 40 35 - 45 mmHg PO2 POC 61 (L) 80 - 105 mmHg CO2, total POC 26 20 - 30 mmol/L HCO3, POC 25 21 - 30 mmol/L BE POC 0 -2 - 3 mmol/L O2 sat POC 91 (L) 95 - 98 % Troponin I high-sensitivity Collection Time: 12/03/23 9:07 PM Result Value Ref Range Trop I hs 94 (H) <=17 ng/L CBC with auto differential Collection Time: 12/03/23 9:07 PM Result Value Ref Range WBC 12.2 (H) 3.8 - 9.9 K/cumm Hgb 10.2 (L) 11.9 - 15.5 g/dL Hct 29.4 (L) 35.6 - 45.5 % Plt 180 150 - 400 K/cumm MPV 10.4 9.1 - 12.3 fL RBC 3.40 (L) 3.90 - 5.20 M/cumm MCV 86.5 81.3 - 96.4 fL MCH 30.0 27.1 - 33.3 pg MCHC 34.7 32.3 - 35.7 g/dL RDW CV 15.1 (H) 11.1 - 14.9 % RDW SD 48.3 (H) 35.7 - 48.1 fL NRBC abs 0.00 0.00 - 0.01 K/cumm Differential, auto Collection Time: 12/03/23 9:07 PM Result Value Ref Range Neutrophil abs 9.4 (H) 1.5 - 6.5 K/cumm Imm gran abs 0.1 0.0 - 0.1 K/cumm Lymphocyte abs 1.4 0.8 - 3.3 K/cumm Monocyte abs 0.9 (H) 0.2 - 0.8 K/cumm Eosinophil abs 0.4 0.0 - 0.5 K/cumm Basophil abs 0.1 0.0 - 0.1 K/cumm Neutrophil pct 77.4 % Imm gran pct 0.7 % Lymphocyte pct 11.2 % Monocyte pct 7.3 % Eosinophil pct 3.0 % Basophil pct 0.4 % Calcium, ionized Collection Time: 12/03/23 9:09 PM Result Value Ref Range Calcium, Ionized 4.35 (L) 4.50 - 5.10 mg/dL XR Scoliosis Ap Lat Result Date: 12/02/2023 1. Intraoperative radiographs demonstrating ongoing posterior instrumented spinal fusion revision. Electronically signed by: Edgar Pichardo M.D. Assessment /Plan Principal Problem: Pseudoarthrosis of lumbar spine Active Problems: Dyslipidemia Chronic nonseasonal allergic rhinitis due to pollen Major depressive disorder, single episode, moderate (HCC) Essential hypertension Paroxysmal atrial fibrillation (CMS/HCC) (HCC) Fusion of spine of lumbar region ICD (implantable cardioverter-defibrillator), dual, in situ Neurologic: #Acute pain: -Controlled with PRN Tylenol and PRN oxycodone #Depression, #Anxiety: -Continue home duloxetine -Hold PRN alprazolam 2/2 lethargy from IV benzo given during ACT for electrical cardioversion #Thoracolumbar pseudoarthrosis: -s/p multiple previous spine surgeries -12/01: [id number] PSF revision -Follow drain output -Ortho-spine primary Cardiovascular: #Paroxysmal atrial fibrillation #RBBB, #CHF: -AICD in place -EKG in 07/2023 in sinus rhythm; 12/02 1400 NSR -Afib with RVR this PM requiring electrical cardioversion, amio bolus/infusion -1.5L crystalloid for volume resuscitation -Continue PO diltiazem in AM if pressors have weaned off; Hold metoprolol -Replete electrolytes as needed #Shock: -Hypotension 2/2 atrial fibrillation -Titrate norepinephrine for MAP goal of >65 -Continue volume resuscitation as needed Pulmonary: #Acute respiratory insufficiency: -Currently on 4L NC -Wean for spo2>92% GI: -NPO -ADAT in AM if stable Renal: Lab Results Component Value Date CREATININE 0.80 12/03/2023 -Bedoya in place with adequate UOP. Hematology: Lab Results Component Value Date HGB 10.2 (L) 12/03/2023 #Acute blood loss anemia: -HgB stable -Follow with PM labs. Transfuse for HgB less than 7 and/or hemodynamic instability with active bleeding. ID: -Afebrile. Lab Results Component Value Date WBC 12.2 (H) 12/03/2023 -Postop antibiotics complete Intensive Care Unit Standards of Care: Stress ulcer prophylaxis: Protonix Maintenance IV fluids: D5LR at 25 SICU insulin orders: SSI per ICU protocol Nutrition plan: NPO DVT prophylaxis: SCDs Access: elmira Chacon Goals of care: Full code Juanito Sanchez NP Critical Care Performed by: Juanito Sanchez NP Authorized by: Juanito Sanchez NP CRITICAL CARE: Team: SICU BLUE Shift: PM Level of Billing: Critical Care My time spent with this patient was 120 minutes: Critical Provider Statement: I have seen and examined the patient on this day of service. I have reviewed and confirmed the history, physical exam, laboratory and radiologic data as documented in thesigned ICU note. I have reviewed and discussed my treatment plan with the ICU team and other medical/lead consultant staff, making frequent assessments and decisions regarding this patient's complex medical care. Critical Care time was exclusive of time spent performing separately billed procedures, treating other patients, and teaching. This time was in addition to and separate from critical care provided by other practitioners in my group on this day of service. Critical Care was necessary to treat or prevent imminent or life-threatening deterioration of the following conditions: Cosigned by Tobi Garcia MD PhD at 12/04/2023 4:54 AM CDT * Jeremy Michelle MD - 12/02/2023 7:31 AM CDT I have reviewed the H&P, examined the patient, and endorse the findings as written. Plan of Care : Based on the above findings, I consider Macie Briseno to be an acceptable risk for : Procedure(s): FUSION DECOMPRESSION LAMINECTOMY WITH INSTRUMENTATION - DEPUY EXPEDIUM--Posterior spinal instrumented fusion revision [id number] with posterior column osteotomies T12/L1 and L1/2, exploration of fusion, removal of hardware, autograft, allograft, bone morphogentic protein, spinal cord monitoring. REMOVAL HARDWARE SPINE OSTEOTOMY POSTERIOR SPINAL SPINAL CORD MONITORING BONE GRAFT WITH BONE MORPHOGENIC PROTEIN No changes in exam. Risks/benefits discussed this AM. Signed, consented and wishes to proceed with above. Jeremy Michelle MD PhD Attending Spine Surgeon Supervisor [employer] [facility] Source Note - Rachel Ferguson NP - 11/12/2023 12:51 PM CDT Images from the original note were not included. [facility] Preoperative Assessment and Planning Preoperative Evaluation Record Evaluation type/location: [facility] Planned procedure site: [facility] (Pods 2/3/5/TRACK REPAIR WORKER) Date: 11/12/23 Anesthesia Evaluation Macie Briseno is a 78 y.o. female FUSION DECOMPRESSION LAMINECTOMY WITH INSTRUMENTATION - DEPUY EXPEDIUM--Posterior spinal instrumented fusion revision [id number] with posterior column osteotomies T12/L1 and L1/2, exploration of fusion, removal of hardware, autograft, allograft, bone morphogentic protein, spinal cord monitoring. (Spine Thoracic) REMOVAL HARDWARE SPINE (Spine Thoracic) OSTEOTOMY POSTERIOR SPINAL (Spine Lumbar) SPINAL CORD MONITORING BONE GRAFT WITH BONE MORPHOGENIC PROTEIN Pre-Op Diagnosis Codes: * Fusion of spine of lumbar region [M43.26] * Pseudoarthrosis of lumbar spine [S32.009K] HISTORY HPI Macie Briseno is a 78 y/o female with PAF, NICM, atypical variant HCM, [employer] dual leadICD undergoing evaluation for: FUSION DECOMPRESSION LAMINECTOMY WITH INSTRUMENTATION - DEPUY EXPEDIUM--Posterior spinal instrumented fusion revision [id number] with posterior column osteotomies T12/L1 and L1/2, exploration of fusion, removal of hardware, autograft, allograft, bone morphogentic protein, spinal cord monitoring. (Spine Thoracic) REMOVAL HARDWARE SPINE (Spine Thoracic) OSTEOTOMY POSTERIOR SPINAL (Spine Lumbar) SPINAL CORD MONITORING BONE GRAFT WITH BONE MORPHOGENIC PROTEIN Past Medical History Information obtained from: patient and chart. Information obtained during: In Person Neurological Pertinent negatives: seizures; neuromuscular disease; CVA/stroke; TIA; CEA; ICA stenosis; dementia/mild cognitive impairment and carotid artery stent Cardiovascular + Hypertension + Hyperlipidemia + CAD + CHF (Apical HCM, possible apical aneurysm) LVEF: 50-60%. + Current valvular disease - MR - mild; + Atrial fibrillation/flutter - Rhythm type: paroxysmal (multiple episodes < 7 days). + Other arrhythmia (2nd degree AV block) - RBBB. + Pacemaker/ICD (2nd degree AV block, NICM, HCM. Atrial fibrillation RVR with inappropriate ICD shocks 06/29/2023, denies shocks since this time) - dual lead ICD (atrioventricular, w/pacing functions). Brand: [employer]. Indication: primary prevention of VF/VT. Year inserted / last revised: 05/2021. Pacemaker dependent: unknown Pertinent negatives: MO ; CABG ; systolic/diastolic dysfunction w/o CHF ; valve replacement; PVD; DVT/PE; drug-eluting stent(s); bare metal stent(s); unknown stent(s) type and coronary angioplasty Comments: [facility] senior cyber intelligence analyst Dr. Talbert SHAMIKA ~3 weeks ago EP physician Dr. Hemal WICK ~02/2023 Amarjit EP SHAMIKA 09/29/23 1. Hypertrophic cardiomyopathy 2. Second degree AV block 3. Atrial fibrillation RVR with inappropriate ICD shocks 06/29/2023 a. ICD reprogrammed to VT zone at 188 bpm, no therapy b. No recurrent ICD shocks since then 4. Dual chamber ICD - [employer] a. Generator: [employer] [id number], implanted 06/05/2021 b. Atrial lead: [employer] [id number], implanted 06/05/2021 c. Right ventricular lead: [employer] [id number], implanted 06/05/2021 Respiratory Pertinent negatives: COPD; asthma; sleep apnea (MIGUEL A); pulmonary hypertension; no O2 use outside thehospital; non-smoker and no tracheostomy Hepatic / Heme Pertinent negatives: liver disease; history of anemia; history of thrombocytopenia and history of Jake positive Gastrointestinal Pertinent negatives: GERD and hiatal hernia Renal / Pertinent negatives: renal disease; dialysis and nephrolithiasis Musculoskeletal/Pain + Chronic pain - back pain. + Chronic opioid use - less than daily. + Osteoarthritis Pertinent negatives: previous treatment for opioid use disorder Comments: Multiple prior back surgeries Endocrine / Other Pertinent negatives: diabetes mellitus; thyroid disease; obesity (BMI >30); cancer history; rheumatological disease and transplanted organ Functional Capacity Functional capacity: <4 METs Comments: Able to climb 1 flight of stairs w/ SNIDER, quickly resolves. None w/ ADLs No CP w/ rest or activity Review of Systems + SOB (SNIDER, partially attributes to back pain, chronic but worsening slowly along with the back pain for last 3-4 months) + chest pain (none since starting metoprolol prescribed by senior cyber intelligence analyst dr Talbert, ~1.5 months ago, resolved with metoprolol.) + pedal edema (none on lasix) + chronic pain + numbness/tingling (BLE) + hard of hearing (cochlear implant) + vision loss (glasses) Pertinent negatives: productive cough; wheezing; recent cold/flu; fever; palpitations; orthopnea; PND; heavy menses; Sickle Cell disease/trait; previous transfusion; transfusion reaction; melena/hematochezia; easy bruising; bleeding problems; syncope; dizziness; muscle weakness; heartburn; nausea; dysphagia; diarrhea; dentures/partials; chipped/loose teeth; abdominal pain; diaphoresis and no unexpected weight change Comments: Denies acute urinary symptoms PAT Summary and Plans Cardiac risk classification of planned procedure: intermediate cardiac risk. Preoperative assessment status: lab tests ordered and outside records required. Initial preoperative evaluation discussed with: Anastasia Rangel MD Additional comments: Macie Briseno is a 78 y.o. female who is being evaluated prior to undergoing an intermediate cardiac risk surgery. Revised Cardiac Risk Index factors are (ischemic heart disease) for a total RCRI of 1 out of 6. Functional capacity is <4 METs (specifically:Able to climb 1 flight of stairs w/ SNIDER, quickly resolves. None w/ ADLs No CP w/ rest or activity). Obstructive sleep apnea (MIGUEL A) screening status is STOP-Bang=2 suggesting low risk for MIGUEL A Blood bank needs for day of procedure: T&C 2 unit pRBCs Pending labs/tests include: CBC CMP T&S PTT Urinalysis flex Vitamin D, ESR, CRP, urine nicotine, A1c per surgeon CARDIAC RHYTHM DEVICE SUMMARY 1. Device brand known: Yes [employer] 2. Device type known: Yes Dual lead ICD (atrioventricular, with pacing functions) 3. Device location known: Yes, l chest 4. Cardiac Rhythm Device Communication Request form: Pending 5. Patient pacemaker dependent: Uncertain 6. Operation near cardiac rhythm device: No 7. Magnet positioning feasible for procedure: No 8. Device response to magnet: Pending confirmation 9. Device employee relations representative needed on day of surgery: Yes. Awaiting call back from device rep. [employer] staff message sent to surgeon's office, notified that CPAP is arranging for rep to be present, and to please reach out to [employer] if date or time of surgery changes so that rep can be present on DOS. Cardiac Rhythm Device Communication Request form will be transmitted to patients Electrophysiology physician or other clinician managing cardiac rhythm device. This patient has a history of atrial fibrillation with a [id number] score of 5 at MODERATE risk for perioperative thromboembolic events due to [id number] score as per the 2017 ACC Expert Consensus Pathway. -->cardiology clearance In media. Surgery has instructed patient to hold eliquis for 7 days prior to procedure, has received cardiology approval for AC hold. Patient aware. -->Patient states that since she started metoprolol 1.5 months ago she has not had any chest pain. Prior to that she would have CP on a fairly regular basis. Last cardiology OVN, TTE, stress retrieval placed for chart completion Preoperative evaluation performed by Guy Tejada NP on 11/12/23 at 1645. . Follow up note Spoke with Scott from [employer]. Rep aware and will be present. Follow-up completed by: Bonnie Moe NP on 11/12/23 at 5:44 PM Follow up note Labs reviewed and are without significant findings. Awaiting additional lab results: nicotine. Awaiting outside records. Awaiting PPM/ICD communication form. Surgeon's office reviews laboratory results independently, including final results of surgeon ordered labs. ++PPM form- see above rep aware ++Dr. Tab Wilkes last OVN, TTE, Stress for chart completion Follow-up completed by: Amy Vallejo NP on 11/13/23 at 3:25 PM Follow up note Cardiac Rhythm Device Communication Request form received, reviewed and submitted for scanning intoR. CARDIAC RHYTHM DEVICE SUMMARY 1. Device brand known: Yes [employer] 2. Device type known: Yes Dual lead ICD (atrioventricular, with pacing functions) 3. Device location known: Yes, l chest 4. Cardiac Rhythm Device Communication Received 5. Patient pacemaker dependent: No 6. Operation near cardiac rhythm device: No 7. Magnet positioning feasible for procedure: No 8. Device response to magnet: Suspension of anti-tachy therapy while magnet in place 9. Device employee relations representative needed on day of surgery: Yes. Rep and surgeon aware per above Cardiac Rhythm Device Communication Request form will be transmitted to patients Electrophysiology physician or other clinician managing cardiac rhythm device. Awaiting urine nicotine Awaiting Dr. Tab Wilkes last OVN, TTE, Stress for chart completion Follow-up completed by: Guy Tejada NP on 11/16/23 at 1:21 PM Follow up note Labs reviewed and are without significant findings. Surgeon's office reviews laboratory results independently, including final results of surgeon ordered labs. Awaiting last cardiology OVN, TTE, and stress test if available. Follow-up completed by: Yue Lange NP on 11/17/23 at 9:00 AM Follow up note Cardiology note, Dr. Talbert, 10/06/23: With regard to her risk stratification, she has a left heart cath in June with normal coronaries and have normal systolic function. I recommend she proceed with the surgery as planned with out any further cardiac risk stratification. She is at risk of volume overload in the postoperative state. Given her apical HCM, care must be taken to avoid volume depletion during surgery as well. I will plan to see her back in 4 months. TTE 10/06/23 review, documented under diagnostics. CPAP process complete Follow-up completed by: Rachel Ferguson NP on 11/19/23 at 5:48 PM D/w Dr. Swanson Patient Active Problem List Diagnosis Date Noted Pseudoarthrosis of lumbar spine 11/04/2023 Hypersomnolence 11/28/2022 SINDER (dyspnea on exertion) 11/28/2022 ICD (implantable cardioverter-defibrillator), dual, in situ 06/06/2021 Fusion of spine of lumbar region 05/06/2021 AV block, 2nd degree 04/15/2021 Apical variant hypertrophic cardiomyopathy (HCC) 04/15/2021 Abnormal echocardiogram 04/08/2021 Post-operative pain 09/04/2020 Paroxysmal atrial fibrillation (CMS/HCC) (HCC) 07/16/2020 Late effects of spine fusion 07/16/2020 Prophylactic antibiotic 07/13/2020 Acute low back pain 07/11/2020 History of spinal fusion for scoliosis 07/09/2020 Abnormal ECG 05/24/2019 Meniere's disease of both ears 02/21/2019 Facet arthritis of cervical region 04/30/2018 Facet arthritis of lumbar region 04/30/2018 Facet arthropathy, thoracic 04/30/2018 Inflammatory spondylopathy of thoracic region (HCC) 04/30/2018 Sensorineural hearing loss, asymmetrical 02/19/2018 Foreign body in left ear 11/09/2017 Microvascular angina (HCC) 06/30/2017 Dyslipidemia 06/30/2017 Hx of decompressive lumbar laminectomy 04/05/2017 Essential hypertension 04/13/2015 Orthopedic aftercare 12/29/2014 History of bilateral total hip arthroplasty 10/19/2014 Follow-up examination following surgery 08/02/2014 Arthralgia of hip 05/16/2014 Neck pain 01/18/2014 Lumbago 11/24/2013 Tinnitus, subjective 07/01/2013 Active cochleovestibular Meniere's disease 08/18/2012 Sensorineural hearing loss (SNHL) of both ears 08/18/2012 Major depressive disorder, single episode, moderate (HCC) 05/13/2012 Tinnitus 04/26/2012 Sudden idiopathic hearing loss of right ear 04/26/2012 SNHL (sensory-neural hearing loss), asymmetrical 04/26/2012 Lumbar radiculopathy 01/30/2012 Pure hypercholesterolemia 06/24/2011 Chronic nonseasonal allergic rhinitis due to pollen 05/17/2009 Primary osteoarthritis involving multiple joints 05/17/2009 S/P laparoscopic cholecystectomy 05/17/2009 Past Medical History: Diagnosis Date Allergic rhinitis Anxiety unknown maybe 1989 Arthritis 2018 Atrial fibrillation (CMS/HCC) (HCC) Auditory vertigo Meniere's disease Coronary artery disease Depression 1989 Heart disease Afib 2019 HL (hearing loss) HLD (hyperlipidemia) Meniere's disease 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 Osteoporosis 2013 Tinnitus Past Surgical History: Procedure Laterality Date BACK SURGERY 2017 lower back, 2018, 2018 BRAIN SURGERY Left Ear cochlear implant [...] 2017, 2018, 2019 TOTAL HIP ARTHROPLASTY Bilateral 2014 VESTIBULAR NERVE SECTION Left OB History No obstetric history on file. Allergies Allergen Reactions Adhesive Rash and Blisters Surgical tape Chlorhexidine Rash Sulfa (Sulfonamide Antibiotics) Hives and Rash Gabapentin Other (See comments) Retain water Taking? Last Dose Start Date End Date Provider alendronate (FOSAMAX) 70 mg tablet -- 08/18/23 -- Emmanuel Briones MD ALPRAZolam (XANAX) 0.25 mg tablet () -- 04/13/23 10/20/23 Darshana Toth MD Take 1 tablet (0.25 mg total) by mouth nightly as needed for anxiety atorvastatin (LIPITOR) 20 mg tablet -- 07/29/18 -- Emmanuel Briones MD azelastine (ASTELIN) 137 mcg (0.1 %) nasal spray -- 12/30/21 -- Emmanuel Briones MD DILT-XR 180 mg 24 hr capsule -- 09/07/23 -- Emmanuel Briones MD doxepin (SINEquan) 25 mg capsule -- 02/04/23 -- Emmanuel Briones MD DULoxetine (CYMBALTA) 60 mg capsule -- 03/11/23 -- Emmanuel Briones MD Eliquis 5 mg tablet -- 04/23/21 -- Emmanuel Briones MD fexofenadine-pseudoephedrine (KIMBERLY-D) 60-120 mg per 12 hr tablet -- -- -- Emmanuel Briones MD fluticasone (FLONASE) 50 mcg/actuation nasal spray -- 06/15/12 -- Tg Houston MD inhale 1 spray (50MCG) by intranasal route every day in each nostril Patient taking differently: Administer into each nostril nightly furosemide (LASIX) 20 mg tablet -- 08/04/23 -- Cam Tejeda MD TAKE 1 TABLET(20 MG) BY MOUTH DAILY Patient taking differently: Take 2 tablets (40 mg total) by mouth daily HYDROcodone-acetaminophen (NORCO) 5-325 mg per tablet -- 04/03/22 -- Emmanuel Briones MD magnesium citrate 100 mg tablet -- -- -- Emmanuel Briones MD metoprolol tartrate (LOPRESSOR) 25 mg immediate release tablet -- 07/31/23 -- Jeremy Hobbs MD TAKE 1 TABLET(25 MG) BY MOUTH TWICE DAILY Notes: Patient requests 90 days supply potassium chloride ER 20 mEq CR tablet -- 06/29/20 -- Emmanuel Briones MD sucralfate (CARAFATE) 1 gram tablet -- -- -- Emmanuel Briones MD Current Outpatient Medications: alendronate (FOSAMAX) 70 mg tablet ALPRAZolam (XANAX) 0.25 mg tablet atorvastatin (LIPITOR) 20 mg tablet azelastine (ASTELIN) 137 mcg (0.1 %) nasal spray DILT-XR 180 mg 24 hr capsule doxepin (SINEquan) [address] CHAUALTA) 60 mg capsule Eliquis 5 mg tablet fexofenadine-pseudoephedrine (KIMBERLY-D) 60-120 mg per 12 hr tablet fluticasone (FLONASE) 50 mcg/actuation nasal spray furosemide (LASIX) 20 mg tablet HYDROcodone-acetaminophen (NORCO) 5-325 mg per tablet magnesium citrate 100 mg tablet metoprolol tartrate (LOPRESSOR) 25 mg immediate release tablet potassium chloride ER 20 mEq CR tablet sucralfate (CARAFATE) 1 gram tablet Social History Tobacco Use Smoking Status Never Smokeless Tobacco Never Alcohol Use: Unknown (02/10/2023) AUDIT-C Frequency of Alcohol Consumption: 4 or more times a week Average Number of Drinks: 1 or 2 Frequency of Binge Drinking: Not on file Substance and Sexual Activity Drug Use Not Currently Comment: cbd oil topically Family History Problem Relation Age of Onset Hypertension Mother Cancer Mother No Known Problems Father No Known Problems Sister No Known Problems Brother No Known Problems Mother's Sister No Known Problems Mother's Brother No Known Problems Father's Sister No Known Problems Father's Brother No Known Problems Maternal Grandmother No Known Problems Maternal Grandfather No Known Problems Paternal Grandmother No Known Problems Paternal Grandfather Anemia Neg Hx Arrhythmia Neg Hx Asthma Neg Hx Clotting disorder Neg Hx Fainting Neg Hx Heart attack Neg Hx Heart disease Neg Hx Heart failure Neg Hx Hyperlipidemia Neg Hx Hypertrophic cardiomyopathy Neg Hx Stroke Neg Hx Sudden Cardiac Neg Hx Anesthesia problems Neg Hx There were no vitals filed for this visit. Relevant diagnostics: ECG(s): 07/31/23 Echocardiogram(s): NVR - TTE -10/06/23: Conclusions: Technically difficult study. Echo contrast utilized to enhance endocardium. Normal global and regional LVSF. The LVEF is visually estimated at 65%. Normal LVDF. Contrast and non-contrast images suggest possible focal apical hypertrophy. Device wire note din right heart. Mild MR. 07/16/22 Conclusions: 1. Normal global and regional left ventricular systolic function. LV systolic function is hyperdynamic. Ejection Fraction is estimated at 75%. Left ventricular diastolic function is indeterminate. The left ventricular cavity is low normal in size. LV wall thickness is within normal limits. 2. Normal right ventricular systolic function. Normal right ventricular size. Device wire(s) noted in RA/RV. 3. There is borderline enlargement of the left atrium. 4. Normal appearance of the mitral valve leaflets. Trace mitral valve regurgitation. 5. Grossly normal appearing tricuspid valve. Trace tricuspid regurgitation. TR envelope inadequate to estimate RVSP. 6. At the time of this study the patient is in normal sinus rhythm. Stress test(s): 12/17/22 Conclusions: Sinus rhythm. Nonspecific T wave abnormality. Recommend follow up with senior cyber intelligence analyst. Nonspecific T-wave abnormality persisted after regadenoson injection. Correlate with MPI. Global left ventricular function is normal. Left ventricular ejection fraction is 59 %. Myocardial perfusion imaging is normal. Cardiac catheterization(s): Per cardiology note 10/06/23 (media): 06/2023 - [facility] No CAD PFT(s): N/A Vascular studies: N/A Other: CT thoracic lumbar 10/28/23 IMPRESSION: 1. Postoperative changes consistent with posterior instrumented fusion at L1-L4 with significant loosening of the bilateral transpedicular screws at L1. 2. Degenerative changes of the thoracolumbar spine as detailed above. MRI lumbar spine 10/07/23 IMPRESSION: 1. Postsurgical changes of L1-L4 posterior instrumented fusion with L2-S1 discectomy and interbody fusion with posterior decompression. 2. Interval accelerated degeneration at T12-L1 with disc height loss and desiccation with new edema of the T12 endplate is favored to be degenerative. No high-grade neural foraminal or spinal canal stenosis. 10/01/23 device check: CXR 09/29/23 IMPRESSION: The current study is compared with the prior radiograph dated 06/05/2021 Cardiac pacer/defibrillator in place with leads terminating the right atrium and right ventricle. Partially imaged lumbar instrumented fusion. The lungs are clear. No pleural effusion or pneumothorax. The mediastinal contours and cardiac silhouette are stable. PT: No results found for requested labs within last 30 days. INR: No results found for requested labs within last 30 days. APTT: No results found for requested labs within last 30 days. Hgb A1C: No results found for requested labs within last 30 days. CBC RBC: 10/20/2023: 5.18 M/cumm RDW: No results found for requested labs within last 30 days. MCHC: 10/20/2023: 33.3 g/dL MCH: 10/20/2023: 28.6 pg MCV: 10/20/2023: 85.9 fL Hct: 10/20/2023: 44.5 % Hgb: 10/20/2023: 14.8 g/dL WBC: 10/20/2023: 5.6 K/cumm MPV: 10/20/2023: 10.0 fL Platelets: 10/20/2023: 293 K/cumm RDW CV: 10/20/2023: 14.8 % RDW Sd: 10/20/2023: 46.8 fL BMP Glucose: No results found for requested labs within last 30 days. Calcium: No results found for requested labs within last 30 days. Sodium: No results found for requested labs within last 30 days. Potassium: No results found for requested labs within last 30 days. CO2: No results found for requested labs within last 30 days. Chloride: No results found for requested labs within last 30 days. BUN: No results found for requested labs within last 30 days. Creatinine: No results found for requested labs within last 30 days. documented in this encounter Procedure Notes * Eduard Abel DO - 12/04/2023 3:30 AM CDTAssociated Order(s): Arterial Line Insertion Post-Procedure Diagnose(s): Paroxysmal atrial fibrillation (CMS/HCC) (HCC); Pseudoarthrosis of lumbar spine; Apical variant hypertrophic cardiomyopathy (HCC); Fusion of spine of lumbar region Arterial Line Insertion Date/Time: 12/04/2023 3:30 AM Performed by: Eduard Abel DO Authorized by: Eduard Abel DO [place] Protocol: RN Notified of Procedure: yes Informed consent: Unable to obtain due to emergent status Patient's stated name/ matches armband: Yes Consent form signed, dated, timed; matches correct patient, intended procedure and site: No consentform due to emergent status Supplies, devices and special equipment are available: yes Site/side marked: yes Indications: multiple ABGs and hemodynamic monitoring Location: Left radial Anesthesia: Local infiltration Local anesthetic: Lidocaine 1% Patient skin preparation: chlorhexidine Patient preparation: Sterile probe cover Juancarlos's test normal?: Yes Catheter gauge: 20 Catheter length (cm): 10 Single percutaneous needle puncture: Yes Seldinger technique used: Yes Number of attempts: 1 Placement confirmed with arterial waveform: Yes Post-procedure: Line sutured and dressing applied Post-procedure CMS: Normal Complications: no complications noted during insertion Post Procedure Debrief: All guidewires, needles, sponges or other items are accounted for: yes Cosigned by Tobi Garcia MD PhD at 12/04/2023 4:52 AM CDT documented in this encounter Consult Notes * Herson Read MD - 12/04/2023 1:30 PM CDTAssociated Order(s): IP CONSULT TO CARDIOLOGY Cardiology Consult Note - General Cardiology Patient Name: Macie Briseno : 1945 Date of Service: 12/04/23 Requesting Attending: Jeremy Michelle* Reason for Consult: Other: pAib with shock Chief Complaint: Atrial fibrillation with RVR HPI Macie Briseno is a 78 y.o. female with a history of microvascular angina, apical variant HCM, [employer] DC-ICD (high degree HB) and AF presenting for spine surgery. General Cardiology has been consulted for management of atrial fibrillation. Patient has a history of paroxysmal atrial fibrillation and follows with EP. Per device interrogation her last episode was 07/14/2023 which lasted 15 hours. She presented 12/01 for planned spinal surgery. On 12/02 PM she went into AF with RVR. She received 25mg of metoprolol tartrate PO followed by a bolus of amiodarone. She became hypotensive, developing shock necessitating synchronized cardioversion. She was then transferred to the SICU for ongoing care. She reports being in pain but denied any chest pain or shortness of breath. She eventually converted to sinus rhythm. She reports being on metoprolol and diltiazem at home. Review of Systems: Review of systems as per HPI and, otherwise all other systems are negative. PMHX: has a past medical history of Allergic rhinitis, Anxiety (unknown maybe 1989), Arthritis (2018), Atrial fibrillation (CMS/HCC) (), Auditory vertigo, Coronary artery disease, Depression (1989), Heart disease (Afib 2019), HL (hearing loss), HLD (hyperlipidemia), Meniere's disease, Microvascular angina (), Mixed conductive and sensorineural hearing loss (1989), Osteoporosis (2013), and Tinnitus. PSHX: has a past surgical history that includes Other surgical history (1998); Cholecystectomy; Joint replacement; Back surgery (2016); Vestibular nerve section (Left); Cochlear implant (Left, 06/19/2020); IR Injection Arthrogram SI Joint Bilateral includes Imaging Guidance (Bilateral, 02/15/2021);Total hip arthroplasty (Bilateral, 2013); IR Injection Arthrogram SI Joint Left Includes Imaging Guidance (Left, 09/06/2021); Brain surgery (Left Ear cochlear implant 2019); and Spine surgery (2016, 2018, 2018, 2019). Family Hx: family history includes Cancer in her mother; Hypertension in her mother; No Known Problems in her brother, father, father's brother, father's sister, maternal grandfather, maternal grandmother, mother's brother, mother's sister, paternal grandfather, paternal grandmother, and sister. Social Hx: reports that she has never smoked. She has never used smokeless tobacco. She reports that she does not use drugs. Allergies: Allergies Allergen Reactions Adhesive Rash and Blisters Surgical tape Chlorhexidine Rash Sulfa (Sulfonamide Antibiotics) Hives and Rash Gabapentin Other (See comments) Retain water Home Medications: HOME MEDICATIONS : acetaminophen (TYLENOL) 500 mg tablet ALPRAZolam (XANAX) 0.25 mg tablet atorvastatin (LIPITOR) 20 mg tablet DILT-XR 180 mg [address] (CYMBALTA) 60 mg capsule fluticasone (FLONASE) 50 mcg/actuation nasal spray furosemide (LASIX) 20 mg tablet HYDROcodone-acetaminophen (NORCO) 5-325 mg per tablet metoprolol tartrate (LOPRESSOR) 25 mg immediate release tablet alendronate (FOSAMAX) 70 mg tablet azelastine (ASTELIN) 137 mcg (0.1 %) nasal spray CALCIUM ORAL CHOLECALCIFEROL, VITAMIN D3, ORAL doxepin (SINEquan) 25 mg capsule Eliquis 5 mg tablet fexofenadine-pseudoephedrine (KIMBERLY-D) 60-120 mg per 12 hr tablet magnesium citrate 100 mg tablet potassium chloride ER 20 mEq CR tablet sucralfate (CARAFATE) 1 gram tablet Current Medications: [START ON 12/07/2023] alendronate, 70 mg, oral, Q7 Days amiodarone, 400 mg, oral, BID bisacodyL, 10 mg, rectal, Daily cholecalciferol, 2,000 Units, oral, QAM DULoxetine DR, 60 mg, oral, QAM furosemide, 20 mg, oral, BID insulin lispro, 1-5 Units, subcutaneous, Q4H ELAINA methocarbamoL, 750 mg, oral, TID multivitamin therapeutic, 1 tablet, oral, Daily pantoprazole DR, 40 mg, oral, Daily senna-docusate, 2 tablet, oral, BID sodium chloride 0.9%, 0.5-20 mL, intra-catheter, Q8H ELAINA amiodarone, 0.5 mg/min, Last Rate: 0.5 mg/min (12/04/231625) norepinephrine, 0-2 mcg/kg/min, Last Rate: Stopped (12/04/23 1527) sodium chloride 0.9%, 3-12 mL/hr, Last Rate: 3 mL/hr (12/04/231625) Objective Vital Signs: 24hr Min/Max: Temp Min: 36.9 ??C (98.4 ??F) Max: 38 ??C (100.4 ??F) Pulse Min: 60 Max: 174 BP Min: 68/50 Max: 114/49 Resp Min: 10 Max: 26 SpO2 Min: 89 % Max: 100 % Most Recent: Vitals: 12/04/23 1400 BP: Pulse: 62 Resp: 15 Temp: 37.8 ??C (100 ??F) SpO2: 97% Intake/Output: Intake/Output Summary (Last 24 hours) at 12/04/2023 1724 Last data filed at 12/04/2023 1626 Gross per 24 hour Intake 4256.54 ml Output 1925 ml Net 2331.54 ml Physical Exam: General appearance: no acute distress HEENT: NCAT, MMM, anicteric Lungs: CTAB, no w/r/r, non-labored Heart: RRR, S1, S2 normal, systolic murmur, rub or gallop. JVP not elevated, no LE edema Abdomen: soft, NT/ND; bowel sounds normal Extremities: extremities normal, warm and well-perfused, equal pulses Skin: warm and dry Neurologic: No abnormal movements, non-focal exam Psych: Normal mood and affect Lab/Radiology/Diagnostic Review: Labs: Recent Labs Lab Units 12/03/23 2246 12/03/23 2107 12/03/23 0353 12/02/23 1826 HEMOGLOBIN, POC g/dL 9.9* -- -- -- HEMOGLOBIN g/dL -- 10.2* 10.3* 11.3* HEMATOCRIT % -- 29.4* 30.6* 34.4* HEMATOCRIT POC % 30.0* -- -- -- WBC K/cumm -- 12.2* 11.4* 15.0* PLATELETS K/cumm -- 180 195 249 Recent Labs Lab Units 12/04/23 1133 12/03/23 2106 12/03/23 2105 12/03/23 1508 SODIUM mmol/L 137 -- 137 -- POTASSIUM PLASMA mmol/L 3.9 -- 4.3 -- CHLORIDE mmol/L 106 -- 104 -- CO2 mmol/L 26 -- 26 -- CO2 POC -- < > -- -- ANIONGAP mmol/L 5 -- 7 -- BUN SERUM mg/dL 9 -- 14 -- CREATININE mg/dL 0.60 -- 0.80 -- CALCIUM mg/dL 8.0* -- 8.1* -- MAGNESIUM mg/dL 2.0 -- 2.2 2.2 < > = values in this interval not displayed. Recent Labs Lab Units 12/03/23 2105 ALBUMIN g/dL 3.2* ALK PHOS Units/L 99 AST Units/L 197* ALT Units/L 131* BILIRUBIN TOTAL mg/dL 0.6 BILIRUBIN DIRECT mg/dL <0.2 Recent Labs Lab Units 12/03/23 0353 12/02/23 1826 APTT sec 26* 28 INR 1.04 1.08 Recent Labs Lab Units 12/03/23 2259 12/03/23 2246 12/02/23 1629 PH ART 7.35 7.38 7.38 PCO2 ART mmHg 45 -- -- PO2 ART mmHg 147* -- -- PO2 ARTERIAL POC mmHg -- 81* 190* BASE EXC ART mmol/L -1 -- -- Cultures: Lab Results Component Value Date MICROBIOLOGY Preliminary Report: No growth to date. 12/02/2023 I personally reviewed the Telemetry images with the following findings: Sinus rhythm I personally reviewed the ECG images with the following findings: Atrial fibrillation with RVR -->Sinus rhythm with EKG changes classic for apical variant HCM TTE: 12/04/2023: Normal LV size with hyperdynamic LV systolic function. Evidence of apical variant HCM without apical aneurysm or LVOT obstruction. Mild LAE. Stress test: 11/2022: 11/2022: Regadenoson MPI without ischemia. Cardiac catheterization: None I personally reviewed the AP CXR images with the following findings: No pleural effusion or pulmonary edema Assessment/Plan Ms. Briseno is a 78 y.o. 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 Paroxysmal atrial fibrillation (CMS/HCC) ([facility]) Assessment & Plan Patient with a history of atrial fibrillation on prior device interrogations that presents with AF with RVR and became hypotensive with metoprolol and IV amiodarone that required cardioversion now inSR -Given history of HCM requires anticoagulation. This can be started when safe from per her orthopedic spine team -Would start loading with amiodarone 400mg BID for 7 days, followed by amiodarone 400mg daily for 7days and then drop to amiodarone 200mg daily until she follows up with her primary cardiologists (Dr. Mcintosh). After she is off vasopressors it is ok to restart her home metoprolol but would not restart her diltiazem -I also suspect her elevated troponin is likely secondary to demand ischemia (currently denies any chest pain, shortness of breath or other ischemic symptoms) due to Apical HCM and possible microvascular dysfunction. At this time no indication for further ischemic evaluation We appreciate the ability to be involved in this patient's care. If after 5PM or on weekends, please page the floriculture teacher information technology analyst with any questions or concerns. Herson Read MD Mechanical Press Operator 5:24 PM 12/04/23 Cosigned by Amaury Linn MD at 12/04/2023 10:08 PM CDT Associated attestation - Amaury Linn MD - 12/04/2023 10:08 PM CDT Attending Documentation I have seen and examined the patient on 12/04/23. I agree with the findings and plan of care as documented in the resident's/fellow's note. 78 yo F with apical HCM, microvascular angina, dual chamber ICD, and PAF with episode of rapid AF following laminectomy and spine surgery requiring DCCV. No CP or SOA during episode, currently hemodynamically stable and in NSR. Recent negative MPI SPECT, TnI peak to 14K c/w demand ischemia/injury due to microvascular disease with apical HCM. Agree with plan for amiodarone suppression of AF post-op, stop diltiazem and continue metoprolol, DOAC when safe from surgical standpoint. Amaury Linn MD 12/04/2023 9:57 PM documented in this encounter Nursing Notes * Marcelina Watt, MEDINA - 12/14/2023 4:50 PM CDT Patient discharging home with [facility] approved SOC 12/18. Spouse at bedside, reviewed discharge instructions, answered all questions. Reviewed need for follow-up with cardiology within 1 week which patient states she has already cheduled as well as scheduled follow-up appt with neurosurgery. 1600 blood pressure 110/47 however pt states she is asymptomatic and able to stand/ambulate with no issues. PIV's removed, belongings returned/accounted for, TLSO brace on & aligned, hospitality suite [id number], spouse transporting patient home. * Collette Jackson RN - 12/13/2023 2:59 PM CDT Patient c/o lower extremity edema with weeping to right lower extremity. Patient has GUILLE stockings and limbs were elevated. Patient's at the bedside and very concerned with the swelling and requested assessment from MD and also requested whether patient's Bobbin Winder Tender from [facility] (Dr. Talbert) could be included in her care. At 14:59 Ortho information technology analyst MD Neo Young was notified;awaiting response. Update: 17:04 Ortho oncall paged (MD Neo Young) and stated that patient will be reviewed later. Same relayed to patient. * Evita Cortez RN - 12/11/2023 3:12 AM CDT Telemetry order discontinued 12/10/23 at 1011. CTM nurse sent new telemetry, due to remote sp02 order, which states until telemetry is discontinued. Patient refusing telemetry and sp02 at this time due to being discharged later today. * Claudia Jerez RN - 12/03/2023 10:05 PM CDT Nurse bedside assessing patient when tele showed HR in 170's as well as an episode of VTach. Janet Genao MD called to update on status with no complaints of pain, EKG and Mag ordered. Another callplaced moments later after patient began complaining of chest pain. Chadwick CARDENAS bedside with increasedepisodes of HR in 170's and hypotensive. ACT called at 2056. Amiodarone, dilaudid, ativan and nitrogiven bedside. ACT RN cardioverted patient. Patient transferred to 440 at 2150 with all belongings. * Lucille Love RN - 12/02/2023 7:00 PM CDT Per surgical team handoff patient needs [address] OU Called downstairs for patient's hearing aides. One hearing aid, cochlear implant box, and glasses brought. Called to waiting room and let them know only 1 hearing aid present. 1900-ICD turned on by [employer] to original settings. Per [employer] ICD only thing turned off for the case Reached out to surgical team. [place] [id number] due to bed availability Family brought some of patient's belongings to patient Patient left pacu with all of belongings that were in pacu. Hearing aid in right ear and cochlear implant in left ear. documented in this encounter Miscellaneous Notes * Plan of Care - Tr Russ RN - 12/14/2023 12:55 PM CDT Home Health referral reviewed; [facility] will accept with projected SOC date 12/19/23 for SN PT OT. CM Alannah Paredes RN notified. Tr Russ RN-BSN Supervisor [employer] [facility] [phone] * Plan of Care - Alannah Paredes RN - 12/14/2023 11:57 AM CDT Patient's insurance denied inpatient rehab. Referral sent to SNF: [facility], and no responseyet this morning. Per DCAM this morning, patient can likely discharge with home health. CM spoke with patient bedside, and patient stated that she is comfortable with home health. [facility] referral sent to [facility] Home health, CM will continue to follow. [facility] will accept, with a SOC 12/18. * [facility] Note - Alannah Paredes RN - 12/14/2023 11:49 AM CDT Images from the original note were not included. Patient Information: OT Eval and Treat Last 72 Hours OT Evaluation No documentation. OT Treatment Row Name 12/14/23 1001 12/10/23 0959 Session Type Treatment -HC Treatment -HC OT Received On 12/14/23 -HC 12/10/23 -HC Safe Environment Patient found in supine;Arm band checked 2/2 Spinal incision - HC Arm band checked;Gait belt not utilized, see comment;Patient found sitting in chair 2/2 Spinal incision. Pt TLSO off upon therapist entering room -HC Subjective Agreeable to Therapy -HC Agreeable to Therapy -HC Family/Caregiver Present No -HC No -HC Precautions Spinal/Back -HC Fall risk;Spinal/Back -HC Weight Bearing Restrictions No -HC -- Braces/Orthoses TLSO Donned for entire session - TLSO Donned prior to mobility. - Precaution Handout Issued No -HC No -HC Precaution Comments Verbally reviewed precautions prior to mobility. Pt demonstrated and verbalizedunderstanding. -HC Verbally reviewed precautions prior to mobility. Pt demonstrated and verbalized understanding. - Pain Assessment No/denies pain - 0-10 - Pain Score -- 3 -HC Pain Location -- Back (Lumbar) - Pain Interventions -- Repositioned - Balance Yes -HC Yes -HC Dynamic Sitting-Balance Support No upper extremity supported - No upper extremity supported - Dynamic Sitting-Balance Forward lean;Lateral lean;Reaching for objects;Reaching across midline -HC Lateral lean;Forward lean;Reaching for objects;Reaching across midline - Dynamic Sitting-Sitting Surface Chair - Bed - Dynamic Sitting-Level of Assistance Independent [facility] Distant supervision - Dynamic Sitting-Comments -- Sup for safety - Dynamic Standing-Balance Support No upper extremity supported - Unilateral upper extremity supported - Dynamic Standing-Balance Lateral lean;Forward lean;Reaching for objects;Reaching across midline [facility];Forward lean;Reaching for objects;Reaching across midline - Dynamic Standing-Standing Surface Floor - Floor - Dynamic Standing-Level of Assistance Independent [facility] Minimum assistance - Dynamic Standing-Comments -- Min A for balance and safety - ADLS (WDL) X - X - Grooming: Where assessed Standing at sink - Standing at [facility] - Grooming: Level of assistance Modified [facility] Minimum Assist - Grooming: Assistance with Safety - Safety;Balance Set up for task, Min for balance - LE Dressing: Where assessed Sitting;Standing - Standing;Sitting - LE Dressing: Level of assistance Modified [facility] Minimum Assist - LE Dressing: Assistance with Requires assistive device for steadying;Use of adaptive equipment - Don/doff R sock;Don/doff L sock;Pull up over hips Min for task - LE Dressing: Equipment Utilized Food Stylist;Sock aid - -- Room Mobility: Where assessed To/from bathroom in Pt's room - To/from bathroom in Pt's room -HC Health Management: Equipment Walker -HC Walker -HC Room Mobility: Level of Assistance Modified Independent -HC Minimum Assist -HC Room Mobility comment -- Min A for balance and safety -HC Bed Mobility No Pt found up in chair upon therapist arrival -HC No -HC Transfer Yes -HC Yes -HC Transfer From 1 Sit -HC Sit -HC Transfer Type 1 To and from -HC To and from -HC Transfer to 1 Stand -HC Stand -HC Technique 1 Stand to sit;Sit to stand -HC Sit to stand;Stand to sit -HC Transfer Device 1 Wheeled walker -HC Wheeled walker -HC Transfer Level of Assistance 1 Modified Independent -HC Minimum Assist -HC Trials/Comments 1 Use of w/w -HC Min A for balance, force production, and safety -HC Toilet Transfer From -- Chair with arms -HC Toilet Transfer Type -- To and from -HC Toilet Transfer to -- Standard toilet -HC Toilet Transfer Technique -- Ambulating - Toilet Transfer: Equipment -- Wheeled walker -HC Toilet Transfers -- Minimal assistance -HC Toilet Transfers Comments -- Min A for force production and balance. -HC Arousal/Alertness Alert;Appropriate responses to stimuli -HC Alert;Appropriate responses to stimuli-HC Attention Span Appears intact -HC Appears intact -HC Memory Appears intact -HC Appears intact -HC Current communication Appears Intact -HC Appears Intact -HC Orientation Oriented X4 (person, place, time, situation) -HC Oriented X4 (person, place, time, situation) -HC Following Commands Follows all commands and directions without difficulty -HC Follows all commands and directions without difficulty -HC Safety Judgment Good awareness of safety precautions -HC Good awareness of safety precautions -HC Awareness of Errors Good awareness of errors made -HC Good awareness of errors made -HC Insight Fully aware of deficits -HC Fully aware of deficits -HC Problem Solving Able to problem solve independently -HC Able to problem solve independently -HC Compliance/Behavior Easy to engage -HC Easy to engage -HC Perseveration Not present -HC Not present -HC Comments Pt requires no further skilled acute care OT services and is safe for d/c home with family. -HC Pt seen this date for treatment session focusing on functional transfers and dressing tasks inpreparation for completion of self care tasks. Pt required Min A to complete ADLs with AE. Pt wouldbenefit from continued skilled therapy services to improve ADL ind, balance and safety. -HC Putting on and taking off regular lower body clothing 4 -HC 3 -HC Bathing 4 -HC 3 -HC Toileting 4 -HC 3 -HC Putting on and taking off upper body clothing 4 -HC 3 -HC Personal Grooming 4 -HC 3 -HC Eating Meals 4 -HC 3 -HC Total Score (range 6-24) 24 -HC 18 -HC Score Interpretation 57.54 -HC 38.66 -HC Safe Environment End of Therapy Session Patient left in recliner;RN notified;Call light within reach;Overbed table within reach -HC Patient left in chair;Chair alarm in place and activated;RN notified;Overbed table within reach;Call light within reach w/ TLSO donned -HC Problem List Decreased endurance;Decreased balance;Decreased ADL independence;Decreased gross motorcontrol;Decreased functional mobility;Decreased fine motor control;Decreased IADL independence - Decreased endurance;Decreased balance;Decreased ADL independence;Decreased gross motor control;Decreased functional mobility;Decreased fine motor control;Decreased IADL independence - Barriers to Discharge None -HC Current Mobility Status;Current ADL Status - Barrier Comments -- Fall risk - Plan If this is the last note, consider this the discharge summary;Discharge;Alter current plan -HCContinue with current plan;If this is the last note, consider this the discharge summary - Plan Comments D/C rec altered to reflect Pt current status - -- OT Recommendation Home with family - Inpatient Rehab Facility - Patient at high risk for -- Falls;Readmission;Injury due to reduced functional status;Injury due todecreased ability to care for self;Injury due to balance deficits - Recommend Inpatient Rehab/Acute Rehab due to -- Ability to actively participate in intensive therapy 3 hours/day, 5 days/week or 900 minutes per week;Not at baseline due to impaired ability to complete ADLs;Impaired ability to complete functional mobility;Likely to return to the community at discharge with support system in place - OT Frequency during current admission Discharge from this Service - 5-7x/wk - Treatment/Interventions during current admission Balance Training;Bed mobility;ADL/IADL retraining;Endurance training;Functional activity;Functional transfer training;Functional mobility training -Balance Training;Bed mobility;ADL/IADL retraining;Endurance training;Functional activity;Functional transfer training;Functional mobility training -HC Progress during current admission Discontinue OT -HC Progressing toward goals -HC OT - Next Appointment -- 12/11/23 -HC OT - OK to Discharge Yes -HC No -HC OT Evaluation Complete Yes -HC -- User Khanna (r) = Recorded By, (t) = Taken By, (c) = Cosigned By Initials Name Effective Dates HC Elie-Maikel Baez, OT 06/15/23 - OT Notes Notes from 12/12/23 through 12/14/23 No notes of this type exist for this encounter. , PT Eval and Treat Last 72 Hours PT Evaluation No documentation. PT TREATMENT (Last 168 Hours) PT Treatment Row Name 12/14/23 0927 12/14/23 0820 12/13/23 1525 12/11/23 1630 12/10/23 0835 PT Last Visit Session Type -- Treatment -CB Treatment -AB Treatment -VR Treatment -VR Safe Environment -- Arm band checked;Patient found sitting in chair;Gait belt not utilized, see comment Inferior edge of TLSO utilized -CB Arm band checked;Patient found sitting in chair;Session completed bedside -AB Arm band checked;Patient found sitting in chair;Session completed bedside;Gait belt not utilized, see comment sitting in chair without TLSO on upon arrival into room - VR Arm band checked;Patient found sitting in chair;Session completed bedside;Gait belt not utilized, see comment utilized inferior edge of TLSO in lieu of gait belt; patient was sitting in chair without having TLSO on. -VR Subjective -- Agreeable to Therapy -CB Agreeable to Therapy -AB Agreeable to Therapy -VR Agreeable to Therapy -VR Subjective Comment -- -- -- States she is getting bored, not much to do, does not know if she if going to rehab or SNF; states her brace pinches her that is why she is taking her brace off on her own. -VR feels better this am. state she cannot walk too far -VR Family/Caregiver Present -- No -CB Yes Spouse, Sunita -AB No -VR Yes -VR Current Functional Status PT Functional Mobility -- -- -- Interventions: pt educated in precautions and mobility within precautions -VR Interventions: pt educated in precautions and mobility within precautions -VR Precautions Precautions -- Spinal/Back -CB Fall risk;Spinal/Back -AB Fall risk;Spinal/Back - VR Fall risk;Spinal/Back -VR Weight Bearing Restrictions -- -- -- No -VR No -VR Braces/Orthoses -- TLSO Donned in sitting, and worn throughout therapy session - CB TLSO Donned in sitting, worn with all mobility, and doffed in supine at end of session. -AB -- TLSO on whenever OOB (2 piece clam shell TLSO) -VR -- TLSO donned prior to mobility and was on patient when PT left the room. -VR Precaution Handout Issued -- -- -- No -VR No -VR Precaution Comments -- Verbally reviewed spine precautions prior to all mobility, pt. verbalized understanding and demonstrated adherence. Pts. knowledge was assessed through teachback at end of treatment session and patient able to have good carry over -CB Therapist verbally reviewed spinal precautions with patient. Patient required minimal verbal cues to recall precautions. Patient required minimal verbal cues to maintain precautions during mobility. - AB -- -- Activity Tolerance Endurance -- -- -- Tolerates 10 - 20 min activity with multiple rests -VR Tolerates 30 min activitywith multiple rests -VR Activity Tolerance Comments -- Karyna: Fairly Light -CB KARYNA: somewhat hard -AB -- -- Pain Assessment Pain Assessment -- 0-10 -CB 0-10 -AB 0-10 -VR 0-10 -VR Pain Score -- 4 -CB 6 -AB 4 -VR 5 - Moderate pain -VR Pain Type -- -- Surgical pain -AB -- Surgical pain -VR Pain Location -- Back (Lumbar) -CB Back (Lumbar) -AB -- Back (Lumbar) -VR Pain Interventions -- Physical Therapy;Repositioned;Exercise -CB Distraction;Physical Therapy;Repositioned -AB Repositioned;Ambulation;Elevated;RN Notified RN--Jamissha -VR Repositioned;Elevated;RN Notified RN- Levit -VR Cognition Arousal/Alertness -- Alert;Appropriate responses to stimuli -CB Alert;Appropriate responses to stimuli -AB Alert;Appropriate responses to stimuli -VR Alert;Appropriate responses to stimuli -VR Attention Span -- -- -- Appears intact;Age appropriate -VR Appears intact;Age appropriate -VR Memory -- -- -- Appears intact -VR Appears intact -VR Current communication -- -- -- Appears Intact -VR Appears Intact -VR Orientation -- Oriented X4 (person, place, time, situation) -CB Oriented X4 (person, place, time, situation) -AB Oriented to person -VR Oriented X4 (person, place, time, situation) -VR Following Commands -- Follows all commands and directions without difficulty -CB Follows all commands and directions without difficulty -AB Follows all commands and directions without difficulty -VR Follows all commands and directions without difficulty -VR Safety Judgment -- -- -- Good awareness of safety precautions -VR Good awareness of safety precautions -VR Awareness of Errors -- -- -- Good awareness of errors made -VR Good awareness of errors made -VR Insight -- -- -- Fully aware of deficits -VR Fully aware of deficits -VR Problem Solving -- -- -- Able to problem solve independently -VR Able to problem solve independently -VR Compliance/Behavior -- -- -- Easy to engage -VR Easy to engage -VR Perseveration -- -- -- Not present -VR Not present -VR Static Sitting Balance Static Sitting-Balance Support -- No upper extremity supported;Feet supported - CB No upper extremity supported;Feet supported -AB -- -- Static Sitting-Sitting Surface -- Chair -CB Bed;Chair chair without posterior support -AB -- -- Static Sitting-Level of Assistance -- Independent -CB Distant supervision -AB -- -- Static Sitting-Comment/# of Minutes -- -- Distant supervision required for safety due to mild imbalance. -AB -- -- Dynamic Sitting Balance Dynamic Sitting-Balance Support -- Bilateral upper extremity supported;Feet supported -CB -- -- -- Dynamic Sitting-Balance -- Forward lean;Lateral lean scooting to the edge of the chair -CB -- -- -- Dynamic Sitting-Sitting Surface -- Chair -CB -- -- -- Dynamic Sitting-Level of Assistance -- Independent -CB -- -- -- Static Standing Balance Static Standing-Balance Support -- Bilateral upper extremity supported on w/w - CB Bilateral upper extremity supported -AB -- -- Static Standing-Standing Surface -- Floor -CB Floor -AB -- -- Static Standing-Level of Assistance -- -- Modified Independent -CB Close supervision -AB -- -- Static Standing-Comment/# of Minutes -- Use of w/w -CB Upper extremities supported on wheeled walker. Close supervision for safety due to mild imbalance. -AB -- -- Seated Seated-Exercises -- Lower extremity;Specific exercises -CB -- -- -- Seated-Exercise Type -- Ankle pumps;Long arc quads;ABduction;ADduction -CB -- -- -- Reps/Sets -- 04/26 -CB -- -- -- Seated-Motion -- AROM -CB -- -- -- Seated-Exercise Comments -- Pt. completed seated therapeutic exercises for increased strength, balance, and tolerance of functional activitiy. By completing these pre-gait activities, the patient is providing a cardiovascular warm up and assisting in maintaining joint integrity. -CB -- -- -- Equipment Use Equipment Use Comments -- -- -- no gait belt used--used inferior edge of TLSO in lieu of gait belt -VR inferior edge of TLSO used in lieu of gait belt -VR Bed Mobility Bed Mobility -- -- -- Yes -VR Yes -VR Bed Mobility 1 Bed Mobility From 1 -- -- Supine -AB Edge of bed;Short sit -VR Edge of bed;Short sit -VR Bed Mobility Type 1 -- -- To and from -AB To -VR To -VR Bed Mobility to 1 -- -- Edge of bed -AB Side lying-right;Supine via log roll, bed flat -VR Side lying-right;Supine via log rolling, no rail, bed flat -VR Level of Assistance 1 -- -- Contact Guard Assist;Minimal verbal cues -AB Moderate Assist;Minimal verbal cues;Minimal tactile cues -VR Moderate Assist;Moderate verbal cues;Moderate tactile cues -VR Bed Mobility Comments 1 -- -- Head of the bed flat. Log roll technique used. Contact guard assist required for steadying once coming to sitting and to guide lower extremities. -AB cues to perform components of task -VR cues to perform components of task, assistance to control descent/position of torso to bed surface and bring LEs onto bed surface -VR Bed Mobility 2 Bed Mobility From 2 -- -- -- Supine -VR Supine;Side lying-right via log rolling, bed flat, with side rail -VR Bed Mobility Type 2 -- -- -- To and from via log rolling, bed flat -VR To -VR Bed Mobility to 2 -- -- -- Side lying-right;Side lying-left -VR Short sit;Edge of Bed with side rail, bed flat, after logrolled to R side -VR Level of Assistance 2 -- -- -- Contact Guard Assist -VR Minimum Assist;Minimal verbal cues;Minimal tactile cues -VR Bed Mobility Comments 2 -- -- -- so TLSO could be donned prior to ambulation - VR cues to perform components of task, assistance to get torso to vertical -VR Bed Mobility 3 Bed Mobility From 3 -- -- -- Supine;Side lying-right via log rolling, bed flat, with side rail -VR Supine;Side lying-left;Side lying-right via log rolling, with side rails -VR Bed Mobility Type 3 -- -- -- To -VR To and from -VR Bed Mobility to 3 -- -- -- Edge of bed;Short sit -VR Side lying-left;Side lying- right -VR Level of Assistance 3 -- -- -- Minimum Assist;Minimal verbal cues;Minimal tactile cues -VR Contact Guard Assist -VR Bed Mobility Comments 3 -- -- -- cues to perform components of task -VR cues to perform task; performed to don sharmila shell TLSO prior to mobility tasks -VR Transfers Transfer -- -- -- Yes -VR Yes -VR Transfer 1 Transfer From 1 -- Sit -CB Sit -AB Sit -VR Sit -VR Transfer Type 1 -- To and from -CB To and from -AB To and from -VR To and from -VR Transfer to 1 -- Stand -CB Stand -AB Stand -VR Stand -VR Technique 1 -- Sit to stand;Stand to sit -CB Sit to stand;Stand to sit -AB Sit to stand;Stand to sit -VR Sit to stand;Stand to sit -VR Transfer Device 1 -- Wheeled walker -CB Wheeled walker -AB Wheeled walker -VR Wheeled walker -VR Transfer Level of Assistance 1 -- Modified Independent -CB Standby Assist -AB Contact Guard Assist -VR Minimum Assist;Minimal verbal cues;Minimal tactile cues -VR Trials/Comments 1 -- Use of w/w -CB Stand by assist required for safety due to mild imbalance. -AB cues to perform components of task -VR cues to perform components of task, inadequate force production; lack of eccentric control to sit -VR Ambulation Functional Ambulation Category -- -- -- 3 -VR 2 -VR Ambulation -- -- -- Yes -VR Yes -VR Ambulation 1 Distance (ft) 1 -- 125ft + 100ft + 85ft + 20ft -CB 65 x4 (260ft total) with standing rest breaks between bouts -AB 160 (2 standing rest breaks) -VR 200 (50 + 50 + 25 + 20 + 15 +15 + 15 +15); 8 standing rest breaks -VR Surface 1 -- Level tile -CB Level tile -AB Level tile -VR Level tile -VR Device 1 -- Wheeled walker -CB Wheeled walker -AB Wheeled walker -VR Wheeled walker -VR Other Apparatus 1 -- Wheelchair follow -CB -- -- -- Assistance 1 -- Modified Independent -CB Contact Guard Assist -AB Contact Guard Assist -VR Minimum Assist;Minimal verbal cues;Minimal tactile cues -VR Gait: Requires assist with 1 -- -- Maintaining balance -AB Maintaining balance - VR Maintaining balance -VR Gait: Requires verbal cues to 1 -- -- -- Use assistive device safely;Prevent bumping into environmental barriers (juarez/furniture);Utilize appropriate gait sequencing;Improve upright posture;Pace activity -VR Use assistive device safely;Follow precautions/weight bearing status;Utilize appropriate gait sequencing;Improve upright posture;Pace activity -VR Gait Deviations 1 -- Tanya - decreased;Weight bearing through UE???s - increased downward gaze -CB Base of support - decreased;Tanya - decreased;Posture - flexed;Shuffling;Step length - decreased;Weight bearing through UE???s - increased -AB Base of support - decreased;Tanya - decreased;Heel strike - decreased;Stance time - decreased;Step length - decreased;Weight bearing through UE???s - increased -VR Base of support - decreased;Tanya - decreased;Heel strike - decreased;Posture - flexed;Stance time - decreased;Step length - decreased;Weight bearing through UE???s - increased -VR Quality of Gait 1 -- Significantly decreased tanya -CB -- very slow, decreased step length, reciprocal gait -VR cues to correct forward leaning while ambulating, to keep hips in between her hands -VR Ambulation Comments 1 -- -- 10m Walk Test: 20.46s = 0.49m/s. Patient utilized a wheeled walker during test. -AB -- -- Stairs Stairs -- -- No -AB No -VR No -VR Stair Comments -- Patient reports she has an elevator and stair lift at home -CB Stairs not assessed as patient reports not having stairs in her home environment she has to do (she has a stair lift).-AB -- -- Other Comments Other PT Comments Per discussion with CHIPPER (Rajiv), patient has progressed sufficiently to discharge home with family assistance; reports her spouse/neighbor can provide full-time assistance as needed.Patient has achieved all short-term goals; will be discharged from physical therapy services this da te. -NF -- -- -- -- Basic Mobility - 6 Click How much difficulty does the patient have: Turning over in bed -- 3 -CB 3 -AB 3 -VR 3 -VR How much difficulty does the patient currently have: Sitting down and standing up from a chair witharms? -- 4 -CB 3 -AB 3 -VR 3 -VR How much difficulty does the patient have: Moving from lying on back to sitting on the side of the bed? -- 3 -CB 3 -AB 3 -VR 3 -VR How much difficulty does the patient have: Moving to and from a bed to a chair including wheelchair? -- 4 -CB 3 -AB 3 -VR 3 -VR How much help does the patient currently need: Walk in hospital room? -- 4 -CB 3 -AB 3 -VR 3 -VR How much help from another person does the patient currently need: Climbing 3-5 steps with a railing? -- 3 -CB 2 -AB 2 -VR 1 -VR Total 6 Click Score (range 6-24) -- 21 -CB 17 -AB 17 -VR 16 -VR Score Interpretation -- 45.55 -CB -- 39.67 -VR 38.32 -VR Safe Environment End of Therapy Session Safe Environment End of Therapy Session -- Patient left in recliner;Call light within reach;Overbedtable within reach -CB Patient left supine in bed;Call light within reach;Overbed table within reach;Bed in lowest position with wheels locked;Bed rails up per protocol -AB Patient left in chair;Patient left in recliner;Chair alarm in place and activated;RN notified;Call light within reach;Overbed table within reach;Bed in lowest position with wheels locked;Bed rails up per protocol TLSO on patient upon departure from room -VR Patient left in chair;Chair alarm in place and activated;RN notified;Call light within reach;Overbed table within reach;Bed in lowest position with wheels locked;Bed rails up per protocol TLSO on patient upon exit from room -VR Assessment Prognosis -- -- Good -AB Good -VR Good -VR Problem List -- -- Gait deviations;Decreased strength;Decreased endurance;Impaired balance;Decreased mobility;Orthopedic restrictions;Pain -AB Gait deviations;Decreased strength;Decreased endurance;Impaired balance;Decreased mobility;Obesity;Decreased skin integrity;Orthopedic restrictions;Pain;Postural deficit;Edema -VR Gait deviations;Decreased strength;Decreased range of motion;Decreased endurance;Impaired balance;Decreased mobility;Obesity;Decreased skin integrity;Orthopedic restrictions;Pain -VR Problem List Comments -- -- Physical Therapy Diagnosis: 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 -AB -- -- Barriers to Discharge -- -- Current Mobility Status -AB Home environment challenged;Inaccessible home environment;Current Mobility Status;Decreased caregiver support -VR Current Mobility Status;Inaccessible home environment;Home environment challenged;Decreased caregiver support -VR Plan Plan Discharge;If this is the last note, consider this the discharge summary -NF -- Plan to discusschange in plan and D/C from PT with [facility] Continue with current plan;If this is thelast note, consider this the discharge summary -AB Continue with current plan;If this is the last note, consider this the discharge summary -VR Continue with current plan;If this is the last note, consider this the discharge summary -VR Recommendation/Plan PT Recommendation/Plan Home with family -NF -- Plan to discuss change in Rec to home with family with [facility] Inpatient Rehab Facility -AB Inpatient Rehab Facility -VR Inpatient Rehab Facility -VR Patient at high risk for -- -- Falls;Readmission;Injury due to reduced functional status;Injury dueto balance deficits;Injury at home as patient has not returned to prior level of function;Developing impaired skin integrity -AB Falls;Readmission;Injury due to reduced functional status;Injury due to balance deficits;Prolonged dependence for self care tasks;Difficulty maintaining orthopedic restrictions;Unable to don/doff bracing -VR Falls;Readmission;Injury due to decreased ability to care forself;Injury due to reduced functional status;Injury due to balance deficits;Prolonged dependence for self care tasks;Difficulty maintaining orthopedic restrictions -VR Recommend Inpatient Rehab/Acute Rehab due to -- -- Ability to actively participate in intensive therapy 3 hours/day, 5 days/week or 900 minutes per week;Highly motivated to participate in therapy;Impaired ability to complete functional mobility;Likely to return to the community at discharge with support system in place;Requires greater than 25% physical assistance with most mobility tasks;Requires multiple therapy disciplines to address functional deficits -AB Not at baseline due to impaired ability to complete ADLs;Ability to actively participate in intensive therapy 3 hours/day, 5 days/weekor 900 minutes per week;Impaired ability to complete functional mobility;Likely to return to the community at discharge with support system in place;Requires greater than 25% physical assistance withmost mobility tasks;Requires multiple therapy disciplines to address functional deficits;Patient and caregiver require specialized skilled training due to new level of function/diagnosis;Requires skilled therapy interventions to address neurological deficits -VR Impaired ability to complete functional mobility;Likely to return to the community at discharge with support system in place;Requires greater than 25% physical assistance with most mobility tasks;Requires multiple therapy disciplines to address functional deficits;Patient and caregiver require specialized skilled training due to new level of function/diagnosis;Requires skilled therapy interventions to address neurological deficits -VR PT Frequency during current admission Discharge from this Service -NF -- 5-7x/wk -AB 5-7x/wk -VR 5-7x/wk -VR Treatment/Interventions during current admission -- -- Balance Training;Bed mobility;Compensatory technique education;Endurance training;Equipment eval/education;Functional activity;Functional transfer training;Gait training;Neuromuscular re-education;Parent/caregiver training and education;Stair training;Strengthening;Therapeutic activity;Therapeutic exercise;Transfer training -AB Balance Training;Bed mobility;Compensatory technique education;Endurance training;Functional activity;Functional transfer training;Gait training;Parent/caregiver training and education;Orthotic management;Positioning;Therapeutic activity;Transfer training -VR Balance Training;Bed mobility;Compensatory technique education;Endurance training;Functional activity;Functional transfer training;Gait training;Orthotic management;Parent/caregiver training and education;Positioning;Range of motion;Stair training;Therapeutic activity;Therapeutic exercise;Transfer training -VR PT Equipment Recommended -- -- Other (Comment) to be determined at the next level of care -AB Wheeled walker -VR Wheeled walker -VR Progress during current admission Discontinue PT -NF -- Progressing toward goals -AB Progressing toward goals -VR Slow progress, decreased activity tolerance -VR PT - OK to Discharge Yes -NF -- -- No -VR No except to another facility -VR PT Evaluation Complete -- -- -- Yes -VR Yes -VR Row Name 12/09/23 1417 12/08/23 1021 PT Last Visit Session Type Treatment -VR Treatment -VR Safe Environment Patient found sitting in chair;Arm band checked;Session completed bedside;Gait belt not utilized, see comment used inferior edge of TLSO in lieu of gait belt; patient did not have TLSO on in sitting upon entering room. -VR Arm band checked;Patient found sitting in chair;Session completed bedside;Gait belt not utilized, see comment used inferior edge of TLSO in lieu of gait belt -VR Subjective Agreeable to Therapy -VR Agreeable to Therapy -VR Subjective Comment Patient states she is tired this pm and did not realize how weak she if -VR she stated her spouse () is not going to be able to assist her that much, she believes this will be too difficult for her to do. -VR Family/Caregiver Present Yes spouse -VR No -VR Current Functional Status PT Functional Mobility Interventions: pt educated in precautions and mobility within precautions -VR Interventions: patient educated in precautions and mobility within precautions -VR Precautions Precautions Fall risk;Spinal/Back -VR Fall risk;Spinal/Back -VR Weight Bearing Restrictions No -VR No -VR Braces/Orthoses TLSO TLSO on when OOB -VR TLSO TLSO on whenever OOB (clam-shell) -VR Precaution Handout Issued No -VR No -VR Activity Tolerance Endurance Tolerates 30 min activity with multiple rests -VR Tolerates 10 - 20 min activity with multiple rests -VR Pain Assessment Pain Assessment 0-10 -VR 0-10 -VR Pain Score 5 - Moderate pain -VR 9 -VR Pain Type Surgical pain -VR -- Pain Location Back (Lumbar) -VR -- Pain Interventions Repositioned;Elevated;RN Notified RNRustam Murdock -VR Repositioned;Elevated;RN Notified RN- Chamath -VR Cognition Arousal/Alertness Alert;Appropriate responses to stimuli -VR Alert;Appropriate responses to stimuli-VR Attention Span Appears intact;Age appropriate -VR Appears intact;Age appropriate -VR Memory Appears intact -VR Appears intact -VR Current communication Appears Intact -VR Appears Intact -VR Orientation Oriented X4 (person, place, time, situation) -VR Oriented X4 (person, place, time, situation) -VR Following Commands Follows all commands and directions without difficulty -VR Follows all commands and directions without difficulty -VR Safety Judgment Good awareness of safety precautions -VR Good awareness of safety precautions -VR Awareness of Errors Good awareness of errors made -VR Assistance required to identify errors made;Assistance required to correct errors made;Decreased awareness of errors -VR Insight Fully aware of deficits -VR Decreased awareness of deficits -VR Problem Solving Able to problem solve independently -VR Assistance required to identify errors made;Assistance required to generate solutions;Assistance required to implement solutions -VR Compliance/Behavior Easy to engage -VR Easy to engage -VR Perseveration Not present -VR Not present -VR Equipment Use Equipment Use Comments inferior edge of TLSO used in lieu of gait belt -VR -- Bed Mobility Bed Mobility Yes -VR No NT--patient sitting in chair upon entry/exit from her room -VR Bed Mobility 1 Bed Mobility From 1 Supine;Side lying-right via log rolling, bed flat, with rail -VR -- Bed Mobility Type 1 To and from -VR -- Bed Mobility to 1 Edge of bed;Short sit -VR -- Level of Assistance 1 Moderate Assist;Moderate verbal cues;Moderate tactile cues -VR -- Bed Mobility Comments 1 cues to perform components of task, inadequate force production, assistanceto get LEs on/off bed surface, to elevated torso and to control position of torso to bed surface -VR -- Bed Mobility 2 Bed Mobility From 2 Supine;Side lying-right;Side lying-left -VR -- Bed Mobility Type 2 To and from -VR -- Bed Mobility to 2 Side lying-left;Side lying-right -VR -- Level of Assistance 2 Minimum Assist;Minimal verbal cues;Minimal tactile cues - VR -- Bed Mobility Comments 2 cues to perform components to don/doff TLSO -VR -- Transfers Transfer Yes -VR Yes -VR Transfer 1 Transfer From 1 Sit -VR Sit -VR Transfer Type 1 To and from -VR To and from -VR Transfer to 1 Stand -VR Stand -VR Technique 1 Sit to stand;Stand to sit -VR Sit to stand;Stand to sit -VR Transfer Device 1 Wheeled walker -VR Wheeled walker -VR Transfer Level of Assistance 1 Minimum Assist;Minimal verbal cues;Minimal tactile cues -VR Contact Guard Assist -VR Trials/Comments 1 cues to perform components of task, inadequate force production in anti-gravity mm, lack of eccentric control to sit -VR cues to perform components of task, -VR Ambulation Functional Ambulation Category 2 -VR 2 -VR Ambulation Yes -VR Yes -VR Ambulation 1 Distance (ft) 1 50 +15 -VR 70 -VR Surface 1 Level tile -VR Level tile -VR Device 1 Wheeled walker -VR Wheeled walker -VR Assistance 1 Minimum Assist;Minimal verbal cues;Minimal tactile cues -VR Minimum Assist -VR Gait: Requires assist with 1 Maintaining balance -VR Maintaining balance -VR Gait: Requires verbal cues to 1 Use assistive device safely;Prevent bumping into environmental barriers (juarez/furniture);Utilize appropriate gait sequencing;Improve upright posture;Pace activity -VRUse assistive device safely;Utilize appropriate gait sequencing;Improve upright posture;Pace activity -VR Gait Deviations 1 Base of support - decreased;Tanya - decreased;Heel strike - decreased;Hip/knee flexion during swing phase - decreased;Posture - flexed;Stance time - decreased;Step length - decreased;Weight bearing through UE???s - increased -VR Base of support - decreased;Tanya - decreased;Heel strike - decreased;Stance time - decreased;Step length - decreased;Weight bearing through UE???s - increased;Turns - difficulty -VR Quality of Gait 1 cues to correct postural deficits -VR very slow, decreased step length, reciprocal gait -VR Stairs Stairs No -VR No -VR Other Comments Other PT Comments worked on strengthening exercises/tasks to increase strength in his LEs; did 4 sit <> stands with very light use of UEs -VR -- Basic Mobility - 6 Click How much difficulty does the patient have: Turning over in bed 3 -VR 3 -VR How much difficulty does the patient currently have: Sitting down and standing up from a chair witharms? 3 -VR 2 -VR How much difficulty does the patient have: Moving from lying on back to sitting on the side of the bed? 2 -VR 2 -VR How much difficulty does the patient have: Moving to and from a bed to a chair including wheelchair? 2 -VR 3 -VR How much help does the patient currently need: Walk in hospital room? 3 -VR 3 -VR How much help from another person does the patient currently need: Climbing 3-5 steps with a railing? 1 -VR 1 -VR Total 6 Click Score (range 6-24) 14 -VR 14 -VR Score Interpretation 35.55 -VR -- Safe Environment End of Therapy Session Safe Environment End of Therapy Session Patient left in chair;RN notified;Call light within reach;Overbed table within reach;Bed in lowest position with wheels locked;Bed rails up per protocol with TLSO on, -VR Patient left in recliner;RN notified;Call light within reach;Overbed table within reach;Bed in lowest position with wheels locked;Bed rails up per protocol -VR Assessment Prognosis Good -VR Good -VR Problem List Gait deviations;Decreased strength;Decreased range of motion;Decreased endurance;Impaired balance;Decreased mobility;Obesity;Decreased skin integrity;Orthopedic restrictions;Pain;Postural deficit -VR Gait deviations;Decreased strength;Decreased range of motion;Decreased endurance;Decreased mobility;Obesity;Decreased skin integrity;Orthopedic restrictions;Pain;Postural deficit -VR Barriers to Discharge Current Mobility Status;Inaccessible home environment;Home environment challenged;Decreased caregiver support -VR Current Mobility Status;Inaccessible home environment;Home environment challenged;Decreased caregiver support -VR Plan Plan Continue with current plan;If this is the last note, consider this the discharge summary -VR Continue with current plan;If this is the last note, consider this the discharge summary -VR Recommendation/Plan PT Recommendation/Plan Inpatient Rehab Facility -VR Inpatient Rehab Facility -VR Patient at high risk for Falls;Readmission;Injury due to reduced functional status;Injury due to balance deficits;Prolonged dependence for self care tasks;Difficulty maintaining orthopedic restrictions;Unable to don/doff bracing -VR Falls;Readmission;Injury due to decreased ability to care for self;Injury due to reduced functional status;Injury due to balance deficits;Prolonged dependence for self care tasks;Difficulty maintaining orthopedic restrictions;Unable to don/doff bracing -VR Recommend Inpatient Rehab/Acute Rehab due to Not at baseline due to impaired ability to complete ADLs;Impaired ability to complete functional mobility;Likely to return to the community at discharge with support system in place;Requires greater than 25% physical assistance with most mobility tasks;Requires multiple therapy disciplines to address functional deficits;Patient and caregiver require specialized skilled training due to new level of function/diagnosis;Requires skilled therapy interventions to address neurological deficits -VR Not at baseline due to impaired ability to complete ADLs;Impaired ability to complete functional mobility;Likely to return to the community at discharge with support system in place;Requires greater than 25% physical assistance with most mobility tasks;Requires multiple therapy disciplines to address functional deficits;Patient and caregiver require specialized skilled training due to new level of function/diagnosis;Requires skilled therapy interventionsto address neurological deficits -VR PT Frequency during current admission 5-7x/wk -VR 5-7x/wk -VR Treatment/Interventions during current admission Balance Training;Bed mobility;Compensatory technique education;Endurance training;Functional activity;Functional transfer training;Gait training;Parent/caregiver training and education;Positioning;Range of motion;Stair training;Therapeutic activity;Tr ansfer training -VR Balance Training;Bed mobility;Endurance training;Functional activity;Functionaltransfer training;Gait training;Parent/caregiver training and education;Positioning;Orthotic management;Therapeutic activity;Transfer training -VR PT Equipment Recommended Wheeled walker -VR Wheeled walker -VR Progress during current admission Slow progress, decreased activity tolerance - VR Slow progress, decreased activity tolerance -VR PT - OK to Discharge No except to another facility -VR No except to another facility -VR PT Evaluation Complete Yes -VR Yes -VR User Khanna (r) = Recorded By, (t) = Taken By, (c) = Cosigned By Initials Name Effective Dates AB Ashia Bustillos, PT 06/27/19 - CB Rajiv Shi, CHIPPER 08/09/20 - NF Karina Quevedo, PT 04/18/19 - VR Amy Jean, PT 06/27/19 - PT Notes 12/13/2023 4:46 PM Progress Notes signed by Ashia Bustillos, PT 12/14/2023 9:31 AM Progress Notes signed by Karina Quevedo, PT * Plan of Care - Marcelina Watt RN - 12/14/2023 11:15 AM CDT Goals: Clinical Goals for the Shift: pain control, PTOT as ordered, VSS, updates Summary: ambulating halls with therapy, visited by PT/OT. Per [facility] pt d/c dispo pending. Pain controlled, VSS. Problem: Discharge Planning Goal: Understanding discharge needs will improve Recent Flowsheet Documentation Taken 12/14/2023929 by Marcelina Watt RN Understanding of discharge needs will improve: Discuss information regarding discharge instructions Problem: Medication Goal: Satisfaction with pain management medication regimen will improve Recent Flowsheet Documentation Taken 12/14/2023929 by Marcelina Watt RN Satisfaction with pain management medication regimen will improve: Evaluate medication effects Problem: Fall Risk Goal: Will remain free from falls Recent Flowsheet Documentation Taken 12/14/2023929 by Marcelina Watt RN Will remain free from falls: Implement fall prevention measures * Plan of Rebecca - Kaylynn Armendariz RN - 12/14/2023 1:32 AM CDT Problem: Discharge Planning Goal: Understanding discharge needs will improve Outcome: Progressing Problem: Lack of Knowledge Goal: [...] health care needs will improve Outcome: Progressing Problem: Physical Regulation Goal: Ability to re-establish a normal urinary elimination pattern will improve Outcome: Progressing Problem: Skin Integrity Goal: Wound appearance will improve during the postoperative course Outcome: Progressing Problem: Neurosensory Goal: Achieves stable or improved neurological status Outcome: Progressing Problem: Respiratory Goal: Achieves optimal ventilation and oxygenation Outcome: Progressing Goal: Ability to maintain a clear airway will improve Outcome: Progressing Problem: Cardiovascular Goal: Maintains optimal cardiac output and hemodynamic stability Outcome: Progressing Goal: Absence of cardiac dysrhythmias or at baseline Outcome: Progressing Problem: Skin/Tissue Integrity Goal: Skin integrity remains intact Outcome: Progressing Goal: Incisions, wounds, or drain sites healing without S/S of infection Outcome: Progressing Problem: Gastrointestinal Goal: Maintains or returns to baseline bowel function Outcome: Progressing Goal: Maintains adequate nutritional intake Outcome: Progressing Problem: Genitourinary Goal: Absence of urinary retention Outcome: Progressing Problem: Infection Goal: Absence of infection during hospitalization Outcome: Progressing Problem: Metabolic/Fluid and Electrolytes Goal: Electrolytes maintained within normal limits Outcome: Progressing Goal: Hemodynamic stability and optimal renal function maintained Outcome: Progressing Problem: Skin Integrity Impairment Risk Goal: Mobility will improve Outcome: Progressing Goal: Understanding of ways to prevent future skin breakdown will improve Outcome: Progressing Goal: Risk for impaired skin integrity will decrease Outcome: Progressing Problem: Fall Risk Goal: Ability to state ways to decrease the risk of falls will improve Outcome: Progressing Goal: Will remain free from falls Outcome: Progressing Goal: Will remain free from injury from falls Outcome: Progressing Goals: Clinical Goals for the Shift: rest, pain control, monitor vs and I&O Summary: Pt resting comfortably. Oxycodone controlling pain, VS and I&O documented. * Plan of Care - Sonia Chung RN - 12/13/2023 1:30 PM CDT CM updated Dr Olivares that a referral was sent to a SNF and no reply from the facility at this time.I advised we would not hear back until Thursday at the earliest. Snoia Chung RN [facility] [employer] * Plan of Care - Collette Jackson RN - 12/13/2023 8:27 AM CDT Problem: Lack of Knowledge Goal: Ability to develop a pain control plan will improve Outcome: Progressing Flowsheets (Taken 12/13/2023 0800) Ability to develop a pain control plan will improve: Teach information regarding pain management Problem: Medication Goal: Satisfaction with pain management medication regimen will improve Outcome: Progressing Flowsheets (Taken 12/13/2023 0800) Satisfaction with pain management medication regimen will improve: Assess satisfaction with pain management regimen Problem: Sensory Goal: Ability to identify factors that increase pain levels will improve while working to decrease the patient's pain levels Outcome: Progressing Flowsheets (Taken 12/13/2023799) Ability to identify factors that increase pain levels will improve while working to decrease patients pain levels: Assess pain status Problem: Coping Goal: Ability to cope will improve Outcome: Progressing Problem: Health Behavior Goal: Identification of resources available to assist in meeting health care needs will improve Outcome: Progressing Problem: Neurosensory Goal: Achieves stable or improved neurological status Outcome: Progressing Flowsheets (Taken 12/13/2023799) Achieves Stable or Improved Neurological Status: Assess for and report changes in neurological status Goal: Achieves maximal functionality and self care Outcome: Progressing Flowsheets (Taken 12/13/2023799) Achieves maximal functionality and self care: Encourage and assist patient to increase activity andself care with guidance from therapies Problem: Respiratory Goal: Achieves optimal ventilation and oxygenation Outcome: Progressing Flowsheets (Taken 12/13/2023799) Achieves optimal ventilation and oxygenation: Assess for changes in respiratory status Goal: Ability to maintain a clear airway will improve Outcome: Progressing Flowsheets (Taken 12/13/2023799) Ability to maintain a clear airway will improve: Evaluate breath sounds Problem: Cardiovascular Goal: Maintains optimal cardiac output and hemodynamic stability Outcome: Progressing Flowsheets (Taken 12/13/2023799) Maintain optimal cardiac output and hemodynamic Stability: Monitor vital signs, rhythm, and trends Assess quality of pulses, skin color and temperature Goal: Absence of cardiac dysrhythmias or at baseline Outcome: Progressing Flowsheets (Taken 12/13/2023799) Absence of cardiac dysrhythmias or at baseline: Continuous cardiac monitoring, monitor vital signs,obtain 12 lead EKG if indicated Problem: Skin/Tissue Integrity Goal: Skin integrity remains intact Outcome: Progressing Flowsheets (Taken 12/13/2023799) Skin integrity remains intact: Assess and document risk factors for pressure injury development Goal: Incisions, wounds, or drain sites healing without S/S of infection Outcome: Progressing Flowsheets (Taken 12/13/2023799) Incision(s), Wound(s) or Drain Site(s) healing without S/S of infection: Assess and document risk factors for pressure injury development Goal: Oral mucous membranes remain intact Description: Outcome: Progressing Flowsheets (Taken 12/13/2023799) Oral mucous membranes remain intact: Assess oral mucosa and hygiene practices Goals: Clinical Goals for the Shift: VSS, safety, pain control, I+O, mobility Summary: VSS, Safety maintained, pain medication administered, patient ambulated with assistance. * Plan of Care - Kaylynn Armendariz RN - 12/13/2023 4:15 AM CDT Problem: Discharge Planning Goal: Understanding discharge needs will improve Outcome: Progressing Problem: Lack of Knowledge Goal: Ability to develop a pain control plan will improve Outcome: Progressing Problem: Sensory Goal: Ability to identify factors that increase pain levels will improve while working to decrease the patient's pain levels Outcome: Progressing Problem: Coping Goal: Ability to cope will improve Outcome: Progressing Problem: Health Behavior Goal: Identification of resources available to assist in meeting health care needs will improve Outcome: Progressing Problem: Fluid Volume Goal: Will regain or maintain balanced intake and output Outcome: Progressing Problem: Physical Regulation Goal: Ability to re-establish a normal urinary elimination pattern will improve Outcome: Progressing Problem: Sensory (Pain) Goal: Pain levels will decrease Outcome: Progressing Problem: Skin Integrity Goal: Wound appearance will improve during the postoperative course Outcome: Progressing Problem: Neurosensory Goal: Achieves stable or improved neurological status Outcome: Progressing Goal: Achieves maximal functionality and self care Outcome: Progressing Problem: Respiratory Goal: Achieves optimal ventilation and oxygenation Outcome: Progressing Goal: Ability to maintain a clear airway will improve Outcome: Progressing Problem: Cardiovascular Goal: Maintains optimal cardiac output and hemodynamic stability Outcome: Progressing Goal: Absence of cardiac dysrhythmias or at baseline Outcome: Progressing Problem: Skin/Tissue Integrity Goal: Skin integrity remains intact Outcome: Progressing Goal: Incisions, wounds, or drain sites healing without S/S of infection Outcome: Progressing Goal: Oral mucous membranes remain intact Description: Outcome: Progressing Problem: Gastrointestinal Goal: Maintains or returns to baseline bowel function Outcome: Progressing Goal: Maintains adequate nutritional intake Outcome: Progressing Problem: Genitourinary Goal: Absence of urinary retention Outcome: Progressing Problem: Infection Goal: Absence of infection during hospitalization Outcome: Progressing Problem: Metabolic/Fluid and Electrolytes Goal: Electrolytes maintained within normal limits Outcome: Progressing Goal: Hemodynamic stability and optimal renal function maintained Outcome: Progressing Problem: Skin Integrity Impairment Risk Goal: Mobility will improve Outcome: Progressing Goal: Understanding of ways to prevent future skin breakdown will improve Outcome: Progressing Goal: Nutritional status will improve Outcome: Progressing Goal: Risk for impaired skin integrity will decrease Outcome: Progressing Problem: Fall Risk Goal: Ability to state ways to decrease the risk of falls will improve Outcome: Progressing Goal: Will remain free from falls Outcome: Progressing Goal: Will remain free from injury from falls Outcome: Progressing Goals: Goals for shift: Rest, pain control, monitor vs, labs and provide safety. Summary: Pt resting comfortably. Pain controlled with oxycodone and muscle relaxers. Vs and labs documented. Safety measures in place and implemented. * [facility] Note - Fabiana Amaya RN - 12/12/2023 9:50 AM CDT Patient Information: Comprehensive Nursing Documentation Attending Provider: Jeremy Michelle MD Allergies: Adhesive, Chlorhexidine, Sulfa (Sulfonamide Antibiotics), Gabapentin Isolation: None Infection: None Code Status: FULL Ht: 165.1 cm (5' 5 ) Wt: 79.4 kg (175 lb) Admission Cmt: None Principal Problem: Pseudoarthrosis of lumbar spine [S32.009K] Elopement Risk Date/Time Risk/Reason for Elopement User 12/03/23 1050 No risk AP Intake/Output 12/09/23 0700 - 12/10/23 0659 12/10/23 0700 - 12/11/23 0659 12/11/23 0700 - 12/12/23 0659 Total Total [id number] Total Intake (ml) -- -- -- 200 -- 200 Output (ml) 900 275 -- -- 400 400 Net (ml) -900 -275 -- 200 -400 -200 Patient Lines/Drains/Airways Status Active Airway / Central venous catheter / Drain / Epidural cathether / Intraosseous line / Peripherally inserted central catheter / Peripheral intravenous line / Arterial line Name Placement date Placement time Site Days Peripheral IV 12/03/23 18 G Anterior;Distal;Left;Upper Arm 12/03/23 2254 Arm 8 Active Wound Assessment Active Wound / Pressure injury / Kimble / Negative Pressure Wound / Incision Wound 12/02/23 MASD (Moisture associated skin damage) Bilateral Pannus redenned skin fold Date First Assessed 12/02/23 Site [place] Time First Assessed 2019 Days 9 Present on Hospital Admission: Yes Wound Type: MASD (Moisture associated skin damage) Location Orientation: Bilateral Wound Description (Comments): redenned skin fold Assessments Row Name 12/12/23 0730 12/11/23199912/11/2371912/10/231999 Wound Status Healing -- Healing Healing Site Assessment Red;Pepper -- Red;Pepper Red;Pepper Sarah-wound Assessment Fragile;Excoriated -- Fragile;Excoriated Fragile;Excoriated Margins Defined edges -- Defined edges Defined edges Closure Not applicable -- Not applicable Not applicable Drainage Amount None -- None None Dressing -- -- -- Open to air Wound 12/02/23 Abrasion(s) Upper Mediastinal reddened area Date First Assessed 12/02/23 Site Mediastinal Time First Assessed 2019 Days 9 Present on Hospital Admission: Yes Wound Type: Abrasion(s) Location Orientation: Upper Wound Description (Comments): reddened area Assessments Row Name 12/12/23 0730 12/11/23199912/11/2371912/10/231999 Wound Status Healing Healing Healing Healing Site Assessment Color appropriate for ethnicity Color appropriate for ethnicity Color appropriate for ethnicity Red;[place] Sarah-wound Assessment Dry;Intact Dry;Intact Dry;Intact Dry;Intact Margins Unattached edges -- Unattached edges Unattached edges Closure Open to air Open to air Open to air Open to air Drainage Amount None None None None Dressing Status -- Open to Air -- -- Dressing -- Open to air -- Open to air Interventions -- Site care -- -- Wound 12/02/23 Abrasion(s) Anterior;Right Hip/trochanter r Date First Assessed 12/02/23 Site Hip/trochanter Time First Assessed 2019 Days 9 Present on Hospital Admission: Yes Wound Type: Abrasion(s) Location Orientation: Anterior;Right Wound Description (Comments): r Assessments Row Name 12/12/23 0730 12/11/23199912/11/2371912/10/231999 Wound Status Healing Healing Healing Healing Site Assessment Clean;Color appropriate for ethnicity Clean;Color appropriate for ethnicity Clean;Color appropriate for ethnicity Clean;Color appropriate for ethnicity Sarah-wound Assessment Intact;Dry Intact;Dry Intact;Dry Dry;Intact Margins Defined edges -- Defined edges Defined edges Closure -- -- -- Not applicable Drainage Amount -- None -- None Dressing Status -- Open to Air -- -- Dressing -- Open to air -- Open to air Interventions -- Site care -- -- Wound 12/02/23 Puncture Bilateral Frontal Region Date First Assessed 12/02/23 Site Frontal Region Time First Assessed 2019 Days 9 Present on Hospital Admission: Yes Wound Type: Puncture Location Orientation: Bilateral Assessments Row Name 12/12/23 0730 12/11/23199912/11/2371912/10/231999 Wound Status Healing -- Healing Healing Site Assessment -- Clean;Dry -- Clean;Dry Sarah-wound Assessment -- Dry;Intact -- Dry;Intact Drainage Amount -- None -- -- Dressing Status -- Open to Air -- -- Dressing -- Open to air -- Open to air Interventions -- Site care -- -- Surgical Site 12/02/23 Mid-line Back Date First Assessed 12/02/23 Site Back Time First Assessed 1727 Days 9 Present on Hospital Admission: No Location Orientation: Mid-line Assessments Row Name 12/12/23 0730 12/11/23199912/11/2371912/10/231999 Site Assessment Color appropriate for ethnicity LAZ Color appropriate for ethnicity Clean;Color appropriate for ethnicity;Dry Sarah-wound Assessment -- LAZ -- Dry;Intact;Color appropriate for ethnicity Closure -- Unable to assess -- Unable to assess Drainage Amount -- None -- None Dressing Status -- Clean, dry, intact -- Clean, dry, intact Dressing Intervention Site care Site care Site care Site care [place] D[place] Dressing Interventions -- Site care -- -- Franco Fall Risk Flowsheet Row Most Recent Value Prior Fall Event (Autopopulated from EMR) None found ............filed at 12/12/2023729 History of Falling 0 ............filed at 12/12/2023 07 Secondary Diagnosis 15 ............filed at 12/12/2023729 Ambulatory Aids 15 ............filed at 12/12/2023 0730 Intravenous Therapy/Heparin/Saline Lock 20 ............filed at 12/12/2023 0730 Gait/Transferring 10 ............filed at 12/12/2023 0730 Mental Status 0 ............filed at 12/12/2023 0730 Franco Fall Risk Score 60 ............filed at 12/12/2023 0730 Vital Signs 12/10 0700 12/11 0659 12/11 0712/11 0950 Most Recent Temp (??C) 36.3 - 36.8 36.3 36.3 (97.3) 12/11 07 Pulse 57 - 100 120 120 12/11 0730 Resp - 17 17 12/11 0730 SpO2 (%) 93 - 96 90 90 12/11 0730 BP 97/50 - 120/49 103/64 103/64 12/11 0730 MAP (mmHg) 55 - 70 72 72 12/11 0730 Default Flowsheet Data (most recent) Endurance Tests No documentation. Nursing Nutrition None Nursing Mobility Activity 12/11 0800 Ambulate in room;Bathroom privileges 12/11 0730 Chair 12/11 0616 Ambulate in room;Bathroom privileges 12/11 0047 Commode 12/10 2000 Resting in bed 12/10 1847 Chair 12/10 1608 Resting in bed 12/10 1531 Resting in bed 12/10 1455 Ambulate in room 12/10 1418 Ambulate in room;Bathroom privileges 12/10 1300 Bathroom privileges;Ambulate in room;Chair 12/10 1018 Ambulate in room;Chair 12/10 0856 Ambulate in room;Bathroom privileges 12/10 0800 Chair 12/10 0722 Resting in bed 12/10 0426 Ambulate in room;Bathroom privileges;Resting in bed 12/10 0200 Resting in bed 12/10 0000 Commode 12/09 2346 Commode 12/09 2119 Ambulate in room;Bathroom privileges;Chair 12/09 2000 Ambulate in lopez 12/09 1900 Chair 12/09 1608 Ambulate in room;Chair 12/09 1600 Ambulate in room;Bathroom privileges 12/09 1530 Chair 12/09 1500 Ambulate in room;Bathroom privileges;Chair 12/09 1346 Ambulate in room;Bathroom privileges 12/09 1340 Ambulate in room;Bathroom privileges 12/09 1221 Ambulate in room;Chair 12/09 1220 Ambulate in room;Bathroom privileges 12/09 1105 Ambulate in room;Chair 12/09 1100 Ambulate in room;Bathroom privileges 12/09 0946 Ambulate in room 12/09 0930 Chair;Bathroom privileges;Ambulate in room 12/09 0748 Chair 12/09 0733 Ambulate in room;Chair 12/09 0610 Ambulate in room;Chair 12/09 0600 Ambulate in room;Chair 12/09 0504 Ambulate in room;Bathroom privileges;Resting in bed 12/09 0400 Resting in bed;Ambulate in room;Bathroom privileges 12/09 0300 Resting in bed 12/09 0200 Resting in bed 12/09 0136 Ambulate in room;Bathroom privileges;Resting in bed 12/09 0100 Resting in bed 12/09 0000 Resting in bed 12/08 2346 Resting in bed;Ambulate in room;Bathroom privileges 12/08 2200 Resting in bed 12/08 2100 Resting in bed;Ambulate in room;Bathroom privileges 12/08 2054 Chair 12/08 2038 Chair 12/08 1900 Chair 12/08 1853 Ambulate in room;Bathroom privileges 12/08 1800 Chair 12/08 1700 Ambulate in room;Bathroom privileges 12/08 1600 Ambulate in room;Bathroom privileges 12/08 1459 Chair 12/08 1300 Ambulate in room;Bathroom privileges 12/08 1200 Chair 12/08 1100 Chair Patient Assistance 12/11 0616 Standby assist, set-up cues, supervision of patient - no hands on 12/11 0047 Modified independent, requires aide device or extra time 12/10 0000 Modified independent, requires aide device or extra time 12/09 2346 Modified independent, requires aide device or extra time 12/09 2119 Modified independent, requires aide device or extra time 12/09 2000 Modified independent, requires aide device or extra time 12/09 1608 Modified independent, requires aide device or extra time 12/09 1600 Modified independent, requires aide device or extra time 12/09 1500 Modified independent, requires aide device or extra time 12/09 1221 Modified independent, requires aide device or extra time 12/09 1220 Modified independent, requires aide device or extra time 12/09 1105 Modified independent, requires aide device or extra time 12/09 0400 Modified independent, requires aide device or extra time 12/08 2346 Modified independent, requires aide device or extra time 12/08 2038 Modified independent, requires aide device or extra time Assistive Device/Equipment Needed 12/11 0616 Walker 12/09 2119 Walker;Brace (Comment) 12/09 2000 Walker 12/09 1608 Walker 12/09 1600 Walker 12/09 1500 Walker 12/09 1221 Walker 12/09 1220 Walker 12/09 1105 Walker 12/09 1100 Walker 12/09 0733 Walker Ambulation Response 12/11 0616 Tolerated well 12/09 2119 Tolerated well 12/09 2000 Tolerated well 12/09 1608 Tolerated well 12/09 1600 Tolerated well 12/09 1500 Tolerated well 12/09 1220 Tolerated well 12/09 1105 Tolerated well 12/09 1100 Tolerated well Repositioned 12/11 1999 Pillow support Range of Motion Interventions 12/11 0730 Active;All extremities 12/10 2000 Active;All extremities 12/10 0720 Active;All extremities Type of Device 12/11 1999 Compression stockings;Mechanical compression 12/09 2118 Mechanical compression 12/08 2037 Mechanical compression Anti-Embolism Site 12/11 1999 Bilateral Anti-Embolism Type 12/11 1999 Anti-embolism stockings, thigh Anti-Embolism Status 12/11 1999 On Mechanical Compression Site 12/11 1999 Bilateral 12/10 0800 Bilateral 12/09 2118 Bilateral 12/09 0748 Bilateral 12/08 2037 Bilateral Mechanical Compression Type 12/11 1999 IPC/SCD 12/10 0800 IPC/SCD 12/09 2118 IPC/SCD 12/09 0748 IPC/SCD 12/08 2037 IPC/SCD Mechanical Compression Status 12/11 1999 On 12/10 0800 On 12/09 2118 On 12/09 0748 On 12/08 2037 On , Meds and Admin Active Only All Meds/Most Recent Administrations acetaminophen (TYLENOL) tablet 1,000 mg [[id number]] Ordering Provider: Jeremy Michelle MD Status: Completed (Past End Date/Time) Ordered On: 12/02/23 0721 Starts/Ends: 12/02/23 0800 - 12/02/23 0749 Ordered Dose (Remaining/Total): 1,000 mg (0/1) Route: oral Frequency: Once Ordered Rate/Order Duration: -- / -- Timestamps Action Dose Route Other Information 12/02/23 0749 Given 1,000 mg oral Performed by: Dalia Betts RN Scanned Package: [id number], [id number] potassium chloride 40 mEq/520 mL in sodium chloride 0.9% (premix) 40 mEq [[id number]] Ordering Provider: Tee Carver Status: Completed (Past End Date/Time) Ordered On: 12/02/23 1316 Starts/Ends: 12/02/23 1400 - 12/02/23 1726 Ordered Dose (Remaining/Total): 40 mEq (0/1) Route: intravenous Frequency: Once Ordered Rate/Order Duration: 130 mL/hr / 4 Hours Timestamps Action Dose / Duration Route Other Information 12/02/23 1326 Given 40 mEq 240 Minutes intravenous Performed by: Tee Carver fluticasone propionate (FLONASE) 50 mcg/actuation nasal spray 1 spray [[id number]] Ordering Provider: Chinyere Abreu NP Status: Dispensed Ordered On: 12/02/232018 Start: 12/02/232018 Ordered Dose (Remaining/Total): 1 spray (--/--) Route: each nostril Frequency: As needed Ordered Rate/Order Duration: -- / -- (No admins scheduled or recorded for this medication) DULoxetine DR (CYMBALTA) extended release capsule 60 mg [[id number]] Ordering Provider: Chinyere Abreu NP Status: Dispensed Ordered On: 12/02/232018 Start: 12/03/23 0900 Ordered Dose (Remaining/Total): 60 mg (--/--) Route: oral Frequency: Every morning Ordered Rate/Order Duration: -- / -- Admin Instructions: Capsule may be opened and contents mixed with applesauce or apple juice ONLY. Do not crush or chew capsule Timestamps Action Dose Route Other Information 12/12/23 0829 Given 60 mg oral Performed by: Collette Jackson RN Scanned Package: [id number] alendronate (FOSAMAX) weekly tablet 70 mg [[id number]] Ordering Provider: Chinyere Abreu NP Status: Dispensed Ordered On: 12/02/232018 Start: 12/07/23 0000 Ordered Dose (Remaining/Total): 70 mg (--/--) Route: oral Frequency: Every 7 days Ordered Rate/Order Duration: -- / -- Admin Instructions: Give with at least 8 ounces of plain water first thing in the morning. Patient should be instructed to stay upright (not to lie down) for at least 30 minutes and until after firstfood of the day (to reduce esophageal irritation). Timestamps Action Dose Route Other Information 12/06/23 2230 Given 70 mg oral Performed by: Kathleen Min RN Scanned Package: [id number] cholecalciferol (VITAMIN D-3) capsule 2,000 Units [[id number]] Ordering Provider: Chinyere Abreu NP Status: Dispensed Ordered On: 12/02/232018 Start: 12/03/23 0900 Ordered Dose (Remaining/Total): 2,000 Units (--/--) Route: oral Frequency: Every morning Ordered Rate/Order Duration: -- / -- Admin Instructions: Each capsule contains 1,000 units (25 mcg) of cholecalciferol. Timestamps Action Dose Route Other Information 12/12/23 0829 Given 2,000 Units oral Performed by: Collette Jackson RN Scanned Package: [id number], [id number] sodium chloride 0.9% flush 0.5-20 mL [[id number]] Ordering Provider: Chinyere Arbeu NP Status: Verified Ordered On: 12/02/232018 Start: 12/02/23 2200 Ordered Dose (Remaining/Total): 0.5-20 mL (--/--) Route: intra-catheter Frequency: Every 8 hours scheduled Ordered Rate/Order Duration: -- / -- Admin Instructions: Flush volume based on line type and size. Timestamps Action Dose Route Other Information 12/11/23 2140 Given 10 mL intra-catheter Performed by: Kaylynn Armendariz RN Scanned Package: [id number] sodium chloride 0.9% flush 0.5-20 mL [[id number]] Ordering Provider: Chinyere Abreu NP Status: Verified Ordered On: 12/02/232018 Start: 12/02/232018 Ordered Dose (Remaining/Total): 0.5-20 mL (--/--) Route: intra-catheter Frequency: As needed Ordered Rate/Order Duration: -- / -- Admin Instructions: Flush volume based on line type and size. Flush before and after each use. (No admins scheduled or recorded for this medication) Carrier Fluids for Secondary Infusion - 0.9% Sodium Chloride [[id number]] Ordering Provider: Chinyere Abreu NP Status: Dispensed Ordered On: 12/02/232018 Start: 12/02/232018 Ordered Dose (Remaining/Total): 30 mL (--/--) Route: intravenous Frequency: As needed Ordered Rate/Order Duration: -- / -- Admin Instructions: 0-250 ml/hr to flush line after IV infusions when no maintenance IV ordered. Infuse 30mL at the same rate as the secondary infusion. Run as primary IV, not intended for KVO. Timestamps Action Dose Route Other Information 12/03/232056 Given 30 mL intravenous Performed by: Mariana Petersen RN ondansetron (ZOFRAN) injection 4 mg [[id number]] Ordering Provider: Chinyere Abreu NP Status: Dispensed Ordered On: 12/02/232018 Start: 12/02/232018 Ordered Dose (Remaining/Total): 4 mg (--/--) Route: intravenous Frequency: Every 6 hours PRN Ordered Rate/Order Duration: -- / 2 Minutes Admin Instructions: Proceed to prochlorperazine if no relief within 30 minutes. Line Med Link Info Comment Peripheral IV 12/03/23 Right Antecubital 12/05/23 1859 by Joey Velasquez RN -- Timestamps Action Dose / Duration Route Other Information 12/08/23 1351 Given 4 mg 2 Minutes intravenous Performed by: Marlee Roche RN Scanned Package: [address]-3 prochlorperazine (COMPAZINE) injection 5 mg [[id number]] Ordering Provider: Chinyere Abreu NP Status: Verified Ordered On: 12/02/232018 Start: 12/02/232018 Ordered Dose (Remaining/Total): 5 mg (--/--) Route: intravenous Frequency: Every 6 hours PRN Ordered Rate/Order Duration: -- / 2 Minutes Admin Instructions: If not relieved by ondansetron within 30 minutes. (No admins scheduled or recorded for this medication) senna-docusate (PERICOLACE) 8.6-50 mg per tablet 2 tablet [[id number]] Ordering Provider: Chinyere Abreu NP Status: Dispensed Ordered On: 12/02/232018 Start: 12/02/232099 Ordered Dose (Remaining/Total): 2 tablet (--/--) Route: oral Frequency: 2 times daily Ordered Rate/Order Duration: -- / -- Admin Instructions: Hold for diarrhea. Timestamps Action Dose Route Other Information 12/12/2329 Given 2 tablet oral Performed by: Collette Jackson RN Scanned Package: [id number], [id number] bisacodyL (DULCOLAX) suppository 10 mg [[id number]] Ordering Provider: Chinyere Abreu NP Status: Dispensed Ordered On: 12/02/232018 Start: 12/02/232099 Ordered Dose (Remaining/Total): 10 mg (--/--) Route: rectal Frequency: Daily Ordered Rate/Order Duration: -- / -- Admin Instructions: Hold for diarrhea Timestamps Action Dose Route Other Information 12/05/23 0841 Given 10 mg rectal Performed by: Joey Velasquez RN Scanned Package: [id number] magnesium hydroxide (MILK OF MAGNESIA) 80 mg/mL (33.3 mg/mL as elemental magnesium) oral bbzuludmal06 mL [[id number]] Ordering Provider: Chinyere Abreu NP Status: Verified Ordered On: 12/02/232018 Start: 12/02/232018 Ordered Dose (Remaining/Total): 30 mL (--/--) Route: oral Frequency: Daily PRN Ordered Rate/Order Duration: -- / -- (No admins scheduled or recorded for this medication) bisacodyl EC (DULCOLAX EC) tablet 10 mg [[id number]] Ordering Provider: Chinyere Abreu NP Status: Dispensed Ordered On: 12/02/232018 Start: 12/02/232018 Ordered Dose (Remaining/Total): 10 mg (--/--) Route: oral Frequency: Daily PRN Ordered Rate/Order Duration: -- / -- Admin Instructions: Do not crush, chew, cut, dissolve, open or otherwise manipulate tablet/capsule. (No admins scheduled or recorded for this medication) mineral oil (FLEET MINERAL OIL) enema 133 mL [[id number]] Ordering Provider: Chinyere Abreu NP Status: Dispensed Ordered On: 12/02/232018 Start: 12/02/232018 Ordered Dose (Remaining/Total): 1 enema (--/--) Route: rectal Frequency: Daily PRN Ordered Rate/Order Duration: -- / -- (No admins scheduled or recorded for this medication) multivitamin with folic acid 400 mcg tablet 1 tablet [[id number]] Ordering Provider: Chinyere Abreu NP Status: Dispensed Ordered On: 12/02/232018 Start: 12/02/232099 Ordered Dose (Remaining/Total): 1 tablet (--/--) Route: oral Frequency: Daily Ordered Rate/Order Duration: -- / -- Timestamps Action Dose Route Other Information 12/12/23 0828 Given 1 tablet oral Performed by: Collette Jackson RN Scanned Package: [id number] ceFAZolin (ANCEF) 1 gram/10 mL in sterile water (premix) 1,000 mg [[id number]] Ordering Provider: Latisha Retana NP Status: Completed (Past End Date/Time) Ordered On: 12/02/232018 Starts/Ends: 12/02/232199 - 12/03/23 1508 Ordered Dose (Remaining/Total): 1,000 mg (0/3) Route: intravenous Frequency: Every 8 hours Ordered Rate/Order Duration: 200 mL/hr / 3 Minutes Admin Instructions: Beginning 8 hours after last sarah-procedural dose. Line Med Link Info Comment Peripheral IV 12/02/23 18 G Right Hand 12/02/23 223 by Latisha Robles RN -- Timestamps Action Dose / Rate / Duration Route Other Information 12/03/23 1505 Given 1,000 mg 200 mL/hr 3 Minutes intravenous Performed by: Michelle Johnston RN vancomycin 1,000 mg/200 mL in dextrose 5% (premix) 1,000 mg [[id number]] Ordering Provider: Latisha Retana NP Status: Completed (Past End Date/Time) Ordered On: 12/02/232018 Starts/Ends: 12/02/232199 - 12/02/23 2334 Ordered Dose (Remaining/Total): 1,000 mg (0/1) Route: intravenous Frequency: Once Ordered Rate/Order Duration: -- / 60 Minutes Admin Instructions: Administer 12 hours after last pre-operative dose. Line Med Link Info Comment Peripheral IV 12/02/23 20 G Left;Posterior Wrist 12/02/232233 by Latisha Robles RN -- Timestamps Action Dose / Duration Route Other Information 12/02/23 223 New Bag 1,000 mg 60 Minutes intravenous Performed by: Latisha Robles RN pantoprazole DR (PROTONIX) extended release tablet 40 mg [[id number]] Ordering Provider: Chinyere Abreu NP Status: Dispensed Ordered On: 12/02/232018 Start: 12/03/23 0900 Ordered Dose (Remaining/Total): 40 mg (--/--) Route: oral Frequency: Daily Ordered Rate/Order Duration: -- / -- Admin Instructions: Do not crush, chew, cut, dissolve, open or otherwise manipulate tablet/capsule. Timestamps Action Dose Route Other Information 12/12/23 0829 Given 40 mg oral Performed by: Collette Jackson RN Scanned Package: [id number] furosemide (LASIX) tablet 20 mg [[id number]] Ordering Provider: Dalia Muhammad NP Status: Completed (Past End Date/Time) Ordered On: 12/03/23 1456 Starts/Ends: 12/03/23 1530 - 12/03/23 1505 Ordered Dose (Remaining/Total): 20 mg (0/1) Route: oral Frequency: Once Ordered Rate/Order Duration: -- / -- Timestamps Action Dose Route Other Information 12/03/23 1505 Given 20 mg oral Performed by: Michelle Johnston RN Scanned Package: [id number] HYDROmorphone (DILAUDID) injection 0.2 mg [[id number]] Ordering Provider: Yarely Carrera MD Status: Completed (Past End Date/Time) Ordered On: 12/03/231833 Starts/Ends: 12/03/231914 - 12/03/231841 Ordered Dose (Remaining/Total): 0.2 mg (0/1) Route: intravenous Frequency: Once Ordered Rate/Order Duration: -- / 2 Minutes Timestamps Action Dose / Duration Route Other Information 12/03/231839 Given 0.2 mg 2 Minutes intravenous Performed by: Michelle Johnston RN Scanned Package: [id number] ketorolac (TORADOL) 15 mg/mL injection 15 mg [[id number]] Ordering Provider: Jacqueline Burgos MD Status: Completed (Past End Date/Time) Ordered On: 12/03/231923 Starts/Ends: 12/03/231999 - 12/03/232030 Ordered Dose (Remaining/Total): 15 mg (0/1) Route: intravenous Frequency: Once Ordered Rate/Order Duration: -- / -- Admin Instructions: For Adult IV push, administer over 15 seconds Timestamps Action Dose Route Other Information 12/03/232030 Given 15 mg intravenous Performed by: Claudia Jerez RN Scanned Package: [id number] magnesium sulfate 2 g/50 mL in water (premix) 2 g [[id number]] Ordering Provider: Janet Genao MD Status: Completed (Past End Date/Time) Ordered On: 12/03/232048 Starts/Ends: 12/03/232129 - 12/03/232156 Ordered Dose (Remaining/Total): 2 g (0/1) Route: intravenous Frequency: Once Ordered Rate/Order Duration: -- / 60 Minutes Timestamps Action Dose / Duration Route Other Information 12/03/232056 New Bag 2 g 60 Minutes intravenous Performed by: Mariana Petersen RN aspirin tablet 325 mg [[id number]] Ordering Provider: Florinda Ayoub MD Status: Completed (Past End Date/Time) Ordered On: 12/03/232107 Starts/Ends: 12/03/232144 - 12/03/232113 Ordered Dose (Remaining/Total): 325 mg (0/1) Route: oral Frequency: Once Ordered Rate/Order Duration: -- / -- Timestamps Action Dose Route Other Information 12/03/232113 Given 325 mg oral Performed by: Claudia Jerez RN HYDROmorphone (DILAUDID) injection 0.5 mg [[id number]] Ordering Provider: Florinda Ayoub MD Status: Completed (Past End Date/Time) Ordered On: 12/03/232120 Starts/Ends: 12/03/23219912/03/232135 Ordered Dose (Remaining/Total): 0.5 mg (0/1) Route: intravenous Frequency: Once Ordered Rate/Order Duration: -- / 2 Minutes Timestamps Action Dose / Duration Route Other Information 12/03/232133 Given 0.5 mg 2 Minutes intravenous Performed by: Claudia Jerez RN Comments: ACT, given 1/2 before shock and the rest after amiodarone (NEXTERONE) 150 mg/100 mL (1.5 mg/mL) in dextrose (premix) 150 mg [[id number]] Ordering Provider: Florinda Ayoub MD Status: Completed (Past End Date/Time) Ordered On: 12/03/232124 Starts/Ends: 12/03/232199 - 12/03/232138 Ordered Dose (Remaining/Total): 150 mg (0/1) Route: intravenous Frequency: Once Ordered Rate/Order Duration: 600 mL/hr / 10 Minutes Admin Instructions: Use filter 0.22 micron or less Timestamps Action Dose / Rate / Duration Route Other Information 12/03/232128 New Bag 150 mg 600 mL/hr 10 Minutes intravenous Performed by: Claudia Jerez RN amiodarone in dextrose (NEXTERONE) 360 mg/200 mL (1.8 mg/mL) infusion (premix) [[id number]] Ordering Provider: Florinda Ayoub MD Status: Verified (Past End Date/Time) Ordered On: 12/03/232124 Starts/Ends: 12/03/232199 - 12/04/23336 Ordered Dose (Remaining/Total): 1 mg/min (--/--) Route: intravenous Frequency: Continuous Ordered Rate/Order Duration: 33.3 mL/hr / -- Admin Instructions: Use filter 0.22 micron or less Timestamps Action Dose / Rate Route Other Information 12/04/23299 Rate/Dose Verify 1 mg/min 33.3 mL/hr intravenous Performed by: Skyla Domingo RN amiodarone in dextrose (NEXTERONE) 360 mg/200 mL (1.8 mg/mL) infusion (premix) [[id number]] Ordering Provider: Florinda Ayoub MD Status: Dispensed (Past End Date/Time) Ordered On: 12/03/232124 Starts/Ends: 12/04/23337 - 12/04/232133 Ordered Dose (Remaining/Total): 0.5 mg/min (--/--) Route: intravenous Frequency: Continuous Ordered Rate/Order Duration: 16.67 mL/hr / -- Admin Instructions: Use filter 0.22 micron or less Timestamps Action Dose / Rate Route Other Information 12/04/232199 Rate/Dose Verify 0.5 mg/min 16.67 mL/hr intravenous Performed by: Giselle Sheth RN LORazepam (ATIVAN) injection 2 mg [[id number]] Ordering Provider: Florinda Ayoub MD Status: Completed (Past End Date/Time) Ordered On: 12/03/232129 Starts/Ends: 12/03/232214 - 12/03/232131 Ordered Dose (Remaining/Total): 2 mg (0/1) Route: intravenous Frequency: Once Ordered Rate/Order Duration: -- / -- Admin Instructions: For IV administration, draw up ordered admin dose/volume, then dilute with equal volume of 0.9% sodium chloride and administer total volume to patient. Do not exceed a rate of 2mg/minute. Timestamps Action Dose Route Other Information 12/03/232131 Given 1 mg intravenous Performed by: Claudia Jerez RN Comments: ACT magnesium sulfate 2 g/50 mL in water (premix) 2 g [[id number]] Ordering Provider: Juanito Sanchez NP Status: Completed (Past End Date/Time) Ordered On: 12/03/232207 Starts/Ends: 12/03/232244 - 12/03/232325 Ordered Dose (Remaining/Total): 2 g (0/1) Route: intravenous Frequency: Once Ordered Rate/Order Duration: -- / 60 Minutes Timestamps Action Dose / Duration Route Other Information 12/03/232225 New Bag 2 g 60 Minutes intravenous Performed by: Skyla Domingo RN calcium gluconate 3 g in sodium chloride 0.9% 100 mL IVPB [[id number]] Ordering Provider: Juanito Sanchez NP Status: Completed (Past End Date/Time) Ordered On: 12/03/232208 Starts/Ends: 12/03/232244 - 12/04/2327 Ordered Dose (Remaining/Total): 3 g (0/1) Route: intravenous Frequency: Once Ordered Rate/Order Duration: 130 mL/hr / 60 Minutes Timestamps Action Dose / Rate / Duration Route Other Information 12/03/232327 New Bag 3 g 130 mL/hr 60 Minutes intravenous Performed by: Skyla Domingo RN sodium chloride 0.9% bolus 500 mL [[id number]] Ordering Provider: Juanito Sanchez NP Status: Completed (Past End Date/Time) Ordered On: 12/03/232227 Starts/Ends: 12/03/232299 - 12/03/232236 Ordered Dose (Remaining/Total): 500 mL (0/1) Route: intravenous Frequency: Once Ordered Rate/Order Duration: -- / -- Timestamps Action Dose Route Other Information 12/03/232236 New Bag 500 mL intravenous Performed by: Skyla Domingo RN Scanned Package: [id number] Lactated Ringer's (LR) bolus 1,000 mL [[id number]] Ordering Provider: Juanito Sanchez NP Status: Completed (Past End Date/Time) Ordered On: 12/03/232231 Starts/Ends: 12/03/232314 - 12/03/232236 Ordered Dose (Remaining/Total): 1,000 mL (0/1) Route: intravenous Frequency: Once Ordered Rate/Order Duration: -- / -- Timestamps Action Dose Route Other Information 12/03/232236 New Bag 1,000 mL intravenous Performed by: Skyla Domingo RN potassium chloride 40 mEq/520 mL in sodium chloride 0.9% (premix) 40 mEq [[id number]] Ordering Provider: Juanito Sanchez NP Status: Completed (Past End Date/Time) Ordered On: 12/03/232254 Starts/Ends: 12/03/232329 - 12/04/23 0328 Ordered Dose (Remaining/Total): 40 mEq (0/1) Route: intravenous Frequency: Once Ordered Rate/Order Duration: 130 mL/hr / 4 Hours Timestamps Action Dose / Rate / Duration Route Other Information 12/03/23 232 New Bag 40 mEq 130 mL/hr 4 Hours intravenous Performed by: Skyla Domingo RN HYDROmorphone (DILAUDID) injection 0.2 mg [[id number]] Ordering Provider: Lavon Longo MD Status: Completed (Past End Date/Time) Ordered On: 12/04/23 1154 Starts/Ends: 12/04/23 1230 - 12/04/23 1202 Ordered Dose (Remaining/Total): 0.2 mg (0/1) Route: intravenous Frequency: Once Ordered Rate/Order Duration: -- / 2 Minutes Timestamps Action Dose / Duration Route Other Information 12/04/23 1200 Given 0.2 mg 2 Minutes intravenous Performed by: Juanito Renteria RN Scanned Package: [id number] perflutren protein-a (OPTISON) 3 mL in sodium chloride 0.9% 8 mL syringe [[id number]] Ordering Provider: Jeremy Michelle MD Status: Completed (Past End Date/Time) Ordered On: 12/04/23 1347 Starts/Ends: 12/04/23 134 - 12/04/23 1548 Ordered Dose (Remaining/Total): 1-8 mL (0/1) Route: intravenous Frequency: Once in imaging Ordered Rate/Order Duration: -- / -- Timestamps Action Dose Route Other Information 12/04/23 1548 Given by Other 3 mL intravenous Performed by: Johnathan Diez RDCS potassium, sodium phosphates (PHOS-NAK) 280-160-250 mg packet 2 packet [[id number]] Ordering Provider: Len Klein PA Status: Completed (Past End Date/Time) Ordered On: 12/04/23 1348 Starts/Ends: 12/04/23 1430 - 12/04/23 1525 Ordered Dose (Remaining/Total): 2 packet (0/1) Route: oral Frequency: Once Ordered Rate/Order Duration: -- / -- Admin Instructions: mg dosing is based on phosphorus component. Each packet contains 250 mg elemental phosphorus. Each packet contains elemental phosphorus 250 mg (8 mmol), potassium 280 mg (7.1 mEq), and sodium 160 mg (6.9 mEq). Timestamps Action Dose Route Other Information 12/04/23 1525 Given 2 packet oral Performed by: Juanito Renteria RN Scanned Package: [id number], [id number] enoxaparin (LOVENOX) syringe 40 mg [[id number]] Ordering Provider: Chinyere Abreu NP Status: Dispensed Ordered On: 12/04/231926 Start: 12/04/232099 Ordered Dose (Remaining/Total): 40 mg (--/--) Route: subcutaneous Frequency: Daily (for enoxaparin) Ordered Rate/Order Duration: -- / -- Timestamps Action Dose Route / Site Other Information 12/11/232137 Given 40 mg subcutaneous Left Lower Abdomen Performed by: Kaylynn Armendariz RN Scanned Package: [id number] acetaminophen (TYLENOL) tablet 1,000 mg [[id number]] Ordering Provider: Chinyere Abreu NP Status: Dispensed Ordered On: 12/04/231950 Start: 12/04/23 2030 Ordered Dose (Remaining/Total): 1,000 mg (--/--) Route: oral Frequency: Every 6 hours scheduled Ordered Rate/Order Duration: -- / -- Timestamps Action Dose Route Other Information 12/12/23 0828 Given 1,000 mg oral Performed by: Collette Jackson RN Scanned Package: [id number], [id number] amiodarone (NEXTERONE) 150 mg/100 mL (1.5 mg/mL) in dextrose (premix) 150 mg [[id number]] Ordering Provider: Chinyere Abreu NP Status: Completed (Past End Date/Time) Ordered On: 12/04/232111 Starts/Ends: 12/04/232144 - 12/04/232126 Ordered Dose (Remaining/Total): 150 mg (0/1) Route: intravenous Frequency: Once Ordered Rate/Order Duration: 600 mL/hr / 10 Minutes Admin Instructions: Use filter 0.22 micron or less Timestamps Action Dose / Rate / Duration Route Other Information 12/04/232116 New Bag 150 mg 600 mL/hr 10 Minutes intravenous Performed by: Giselle Sheth RN Scanned Package: [id number] amiodarone (NEXTERONE) 150 mg/100 mL (1.5 mg/mL) in dextrose (premix) 150 mg [[id number]] Ordering Provider: Chinyere Abreu NP Status: Completed (Past End Date/Time) Ordered On: 12/04/232141 Starts/Ends: 12/04/232214 - 12/04/232154 Ordered Dose (Remaining/Total): 150 mg (0/1) Route: intravenous Frequency: Once Ordered Rate/Order Duration: 600 mL/hr / 10 Minutes Admin Instructions: Use filter 0.22 micron or less Timestamps Action Dose / Rate / Duration Route Other Information 12/04/232144 New Bag 150 mg 600 mL/hr 10 Minutes intravenous Performed by: Giselle Sheth RN amiodarone in dextrose (NEXTERONE) 360 mg/200 mL (1.8 mg/mL) infusion (premix) [[id number]] Ordering Provider: Chinyere Abreu NP Status: Dispensed (Past End Date/Time) Ordered On: 12/04/232204 Starts/Ends: 12/04/232244 - 12/05/23406 Ordered Dose (Remaining/Total): 1 mg/min (--/--) Route: intravenous Frequency: Continuous Ordered Rate/Order Duration: 33.3 mL/hr / -- Admin Instructions: Use filter 0.22 micron or less Timestamps Action Dose / Rate Route Other Information 12/05/23 0300 Rate/Dose Verify 1 mg/min 33.3 mL/hr intravenous Performed by: Giselle Sheth RN amiodarone in dextrose (NEXTERONE) 360 mg/200 mL (1.8 mg/mL) infusion (premix) [[id number]] Ordering Provider: Chinyere Abreu NP Status: Dispensed (Past End Date/Time) Ordered On: 12/04/232204 Starts/Ends: 12/05/23407 - 12/05/232158 Ordered Dose (Remaining/Total): 0.5 mg/min (--/--) Route: intravenous Frequency: Continuous Ordered Rate/Order Duration: 16.67 mL/hr / -- Admin Instructions: Use filter 0.22 micron or less Line Med Link Info Comment Peripheral IV 12/03/23 18 G Anterior;Distal;Left;Upper Arm 12/05/23 0700 by Joey Velasquez RN -- Peripheral IV 12/03/23 18 G Anterior;Distal;Left;Upper Arm 12/05/23 0702 by Joey Velasquez RN -- Timestamps Action Dose / Rate Route Other Information 12/05/232056 New Bag 0.5 mg/min 16.67 mL/hr intravenous Performed by: Delicia Clay RN Scanned Package: 16436-794-81 magnesium sulfate 4 g/100 mL in water (premix) 4 g [[id number]] Ordering Provider: Chinyere Abreu NP Status: Completed (Past End Date/Time) Ordered On: 12/04/232207 Starts/Ends: 12/04/232244 - 12/05/23 000 Ordered Dose (Remaining/Total): 4 g (0/1) Route: intravenous Frequency: Once Ordered Rate/Order Duration: -- / 90 Minutes Timestamps Action Dose / Duration Route Other Information 12/04/232236 New Bag 4 g 90 Minutes intravenous Performed by: Giselle Sheth RN Scanned Package: 35388-811-92 potassium phosphates 30 mmol in sodium chloride 0.9% 500 mL IVPB [[id number]] Ordering Provider: Chinyere Abreu NP Status: Completed (Past End Date/Time) Ordered On: 12/04/232228 Starts/Ends: 12/04/232299 - 12/05/23 050 Ordered Dose (Remaining/Total): 30 mmol (0/1) Route: intravenous Frequency: Once Ordered Rate/Order Duration: 85 mL/hr / 6 Hours Admin Instructions: For PERIPHERAL line administration Each 1 mmol of phosphorus ordered contains~1.5 mEq of potassium. Timestamps Action Dose / Rate / Duration Route Other Information 12/04/232308 New Bag 30 mmol 85 mL/hr 6 Hours intravenous Performed by: Giselle Sheth RN potassium chloride (KLOR-CON) packet 40 mEq [[id number]] Ordering Provider: Len Klein PA Status: Completed (Past End Date/Time) Ordered On: 12/05/23817 Starts/Ends: 12/05/23899 - 12/05/23 1210 Ordered Dose (Remaining/Total): 40 mEq (0/2) Route: feeding tube Frequency: Every 4 hours Ordered Rate/Order Duration: -- / -- Admin Instructions: Total dose = 80 mEq. Recommend to dilute each 15 mL with at least 6 ounces of water or juice prior to administration. Dissolve one packet in at least 120 mL of cold water or otherbeverage prior to administration. Timestamps Action Dose Route Other Information 12/05/23 1210 Given 40 mEq feeding tube Performed by: Joey Velasquez RN Scanned Package: 47073-808-24, 03577-457-16 calcium gluconate 3 g in sodium chloride 0.9% 100 mL IVPB [[id number]] Ordering Provider: Len Klein PA Status: Completed (Past End Date/Time) Ordered On: 12/05/23817 Starts/Ends: 12/05/23899 - 12/05/23 1038 Ordered Dose (Remaining/Total): 3 g (0/1) Route: intravenous Frequency: Once Ordered Rate/Order Duration: 130 mL/hr / 60 Minutes Line Med Link Info Comment Peripheral IV 12/02/23 20 G Left;Posterior Wrist 12/05/23 0938 by Joey Velasquez RN -- Timestamps Action Dose / Rate / Duration Route Other Information 12/05/23 09 New Bag 3 g 130 mL/hr 60 Minutes intravenous Performed by: Joey Velasquez RN Lactated Ringer's (LR) bolus 500 mL [[id number]] Ordering Provider: Len Klein PA Status: Completed (Past End Date/Time) Ordered On: 12/05/23 1145 Starts/Ends: 12/05/23 1230 - 12/05/23 1210 Ordered Dose (Remaining/Total): 500 mL (0/1) Route: intravenous Frequency: Once Ordered Rate/Order Duration: -- / -- Line Med Link Info Comment Peripheral IV 12/03/23 18 G Anterior;Distal;Left;Upper Arm 12/05/23 1210 by Joey Velasquez RN -- Timestamps Action Dose Route Other Information 12/05/23 1210 New Bag 500 mL intravenous Performed by: Joey Velasquez RN Scanned Package: [id number] magnesium sulfate 2 g/50 mL in water (premix) 2 g [[id number]] Ordering Provider: Rika Ramos MD Status: Completed (Past End Date/Time) Ordered On: 12/05/23 1235 Starts/Ends: 12/05/23 1315 - 12/05/23 1416 Ordered Dose (Remaining/Total): 2 g (0/1) Route: intravenous Frequency: Once Ordered Rate/Order Duration: -- / 60 Minutes Line Med Link Info Comment Peripheral IV 12/03/23 18 G Anterior;Distal;Left;Upper Arm 12/05/23 1316 by Joey Velasquez RN -- Timestamps Action Dose / Duration Route Other Information 12/05/23 1316 New Bag 2 g 60 Minutes intravenous Performed by: Joey Velasquez RN Scanned Package: 67809-177-98 potassium chloride (KLOR-CON) packet 20 mEq [[id number]] Ordering Provider: Hammann, Chinyere Yanni, [employer] Status: Completed (Past End Date/Time) Ordered On: 12/05/232034 Starts/Ends: 12/05/232114 - 12/05/232140 Ordered Dose (Remaining/Total): 20 mEq (0/1) Route: feeding tube Frequency: Once Ordered Rate/Order Duration: -- / -- Admin Instructions: Dissolve one packet in at least 120 mL of cold water or other beverage prior toadministration. Timestamps Action Dose Route Other Information 12/05/232140 Given 20 mEq feeding tube Performed by: Delicia Clay RN Scanned Package: 74206-758-99 potassium chloride 20 mEq/260 mL in sodium chloride 0.9% (premix) 20 mEq [[id number]] Ordering Provider: Chinyere Abreu NP Status: Completed (Past End Date/Time) Ordered On: 12/05/232034 Starts/Ends: 12/05/232114 - 12/05/232340 Ordered Dose (Remaining/Total): 20 mEq (0/1) Route: intravenous Frequency: Once Ordered Rate/Order Duration: -- / 2 Hours Timestamps Action Dose / Duration Route Other Information 12/05/232140 New Bag 20 mEq 2 Hours intravenous Performed by: Delicia Clay RN lidocaine (ASPERCREME) 4 % patch 2 patch [[id number]] Ordering Provider: Chinyere Abreu NP Status: Dispensed Ordered On: 12/06/23803 Start: 12/06/23899 Ordered Dose (Remaining/Total): 2 patch (--/--) Route: transdermal Frequency: Daily Ordered Rate/Order Duration: -- / 12 Hours Question Answer Comment Apply to affected area:: back -- Timestamps Action Dose / Duration Route / Site Other Information 12/11/23 0851 Medication Applied 2 patch 12 Hours transdermal Back Performed by: Collette Jackson RN Scanned Package: 8259-0062-93, 0122-4573-10 magnesium sulfate 2 g/50 mL in water (premix) 2 g [[id number]] Ordering Provider: Rika Solano NP Status: Completed (Past End Date/Time) Ordered On: 12/06/23827 Starts/Ends: 12/06/23 0900 - 12/06/23 1052 Ordered Dose (Remaining/Total): 2 g (0/1) Route: intravenous Frequency: Once Ordered Rate/Order Duration: -- / 60 Minutes Line Med Link Info Comment Peripheral IV 12/03/23 18 G Anterior;Distal;Left;Upper Arm 12/06/23951 by Joey Velasquez RN -- Timestamps Action Dose / Duration Route Other Information 12/06/23951 New Bag 2 g 60 Minutes intravenous Performed by: Joey Velasquez RN Scanned Package: [id number] simethicone (MYLICON) chewable tablet 80 mg [[id number]] Ordering Provider: Chinyere Abreu NP Status: Dispensed Ordered On: 12/06/231941 Start: 12/06/231940 Ordered Dose (Remaining/Total): 80 mg (--/--) Route: oral Frequency: Every 8 hours PRN Ordered Rate/Order Duration: -- / -- Timestamps Action Dose Route Other Information 12/06/232229 Given 80 mg oral Performed by: Kathleen Min RN Scanned Package: 12286-025-07 calcium gluconate 3 g in sodium chloride 0.9% 100 mL IVPB [[id number]] Ordering Provider: Chinyere Abreu NP Status: Completed (Past End Date/Time) Ordered On: 12/06/232120 Starts/Ends: 12/06/232199 - 12/06/232338 Ordered Dose (Remaining/Total): 3 g (0/1) Route: intravenous Frequency: Once Ordered Rate/Order Duration: 130 mL/hr / 60 Minutes Timestamps Action Dose / Rate / Duration Route Other Information 12/06/232238 New Bag 3 g 130 mL/hr 60 Minutes intravenous Performed by: Kathleen Min RN amiodarone (NEXTERONE) 150 mg/100 mL (1.5 mg/mL) in dextrose (premix) 150 mg [[id number]] Ordering Provider: Chinyere Abreu NP Status: Completed (Past End Date/Time) Ordered On: 12/07/23 0059 Starts/Ends: 12/07/23 0130 - 12/07/23 011 Ordered Dose (Remaining/Total): 150 mg (0/1) Route: intravenous Frequency: Once Ordered Rate/Order Duration: 600 mL/hr / 10 Minutes Admin Instructions: Use filter 0.22 micron or less Timestamps Action Dose / Rate / Duration Route Other Information 12/07/23101 New Bag 150 mg 600 mL/hr 10 Minutes intravenous Performed by: Kathleen Min RN Scanned Package: 58221-319-09 magnesium sulfate 2 g/50 mL in water (premix) 2 g [[id number]] Ordering Provider: Chinyere Abreu NP Status: Completed (Past End Date/Time) Ordered On: 12/07/2358 Starts/Ends: 12/07/23129 - 12/07/23201 Ordered Dose (Remaining/Total): 2 g (0/1) Route: intravenous Frequency: Once Ordered Rate/Order Duration: -- / 60 Minutes Timestamps Action Dose / Duration Route Other Information 12/07/23101 New Bag 2 g 60 Minutes intravenous Performed by: Kathleen Min RN Scanned Package: [id number] oxyCODONE (ROXICODONE) tablet 7.5 mg [[id number]] Ordering Provider: Chinyere Abreu NP Status: Dispensed Ordered On: 12/07/23241 Start: 12/07/23241 Ordered Dose (Remaining/Total): 7.5 mg (--/--) Route: oral Frequency: Every 3 hours PRN Ordered Rate/Order Duration: -- / -- Timestamps Action Dose Route Other Information 12/12/23 0653 Given 7.5 mg oral Performed by: Kaylynn Armendariz RN methocarbamoL (ROBAXIN) tablet 750 mg [[id number]] Ordering Provider: Chinyere Abreu NP Status: Dispensed Ordered On: 12/07/23 0740 Start: 12/07/23 0845 Ordered Dose (Remaining/Total): 750 mg (--/--) Route: oral Frequency: Every 8 hours Ordered Rate/Order Duration: -- / -- Timestamps Action Dose Route Other Information 12/12/23 0829 Given 750 mg oral Performed by: Collette Jackson RN Scanned Package: 03649-297-35 amiodarone (PACERONE) tablet 400 mg [[id number]] Ordering Provider: Chinyere Abreu NP Status: Dispensed (Past End Date/Time) Ordered On: 12/07/23810 Starts/Ends: 12/07/23 09 - 12/12/23 0859 Ordered Dose (Remaining/Total): 400 mg (08/10) Route: oral Frequency: 3 times daily Ordered Rate/Order Duration: -- / -- Timestamps Action Dose Route Other Information 12/11/232137 Given 400 mg oral Performed by: Kaylynn Armendariz RN Scanned Package: 41861-340-90, 50500-535-86 amiodarone (PACERONE) tablet 400 mg [[id number]] Ordering Provider: Chinyere Abreu NP Status: Dispensed Ordered On: 12/07/23810 Starts/Ends: 12/12/23 09 - 12/15/23 0859 Ordered Dose (Remaining/Total): 400 mg (11/29) Route: oral Frequency: 2 times daily Ordered Rate/Order Duration: -- / -- Timestamps Action Dose Route Other Information 12/12/23 0831 Given 400 mg oral Performed by: Collette Jackson RN Scanned Package: 51076-074-88, 90224-514-00 amiodarone (PACERONE) tablet 200 mg [[id number]] Ordering Provider: Chinyere Abreu NP Status: Dispensed Ordered On: 12/07/23810 Start: 12/15/23 0900 Ordered Dose (Remaining/Total): 200 mg (--/--) Route: oral Frequency: Daily Ordered Rate/Order Duration: -- / -- (No admins scheduled or recorded for this medication) atorvastatin (LIPITOR) tablet 40 mg [[id number]] Ordering Provider: Chinyere Abreu NP Status: Dispensed Ordered On: 12/07/23810 Start: 12/07/23 2100 Ordered Dose (Remaining/Total): 40 mg (--/--) Route: oral Frequency: Nightly Ordered Rate/Order Duration: -- / -- Timestamps Action Dose Route Other Information 12/11/23 213 Given 40 mg oral Performed by: Kaylynn Armendariz RN Scanned Package: 97196-553-45 ramelteon (ROZEREM) tablet 8 mg [[id number]] Ordering Provider: Chinyere Abreu NP Status: Dispensed Ordered On: 12/07/23 0811 Start: 12/07/23 2100 Ordered Dose (Remaining/Total): 8 mg (--/--) Route: oral Frequency: Nightly Ordered Rate/Order Duration: -- / -- Timestamps Action Dose Route Other Information 12/11/232138 Given 8 mg oral Performed by: Kaylynn Armendariz RN Scanned Package: 47909-195-56 Lactated Ringer's (LR) bolus 1,000 mL [[id number]] Ordering Provider: Angel Miramontes MD Status: Completed (Past End Date/Time) Ordered On: 12/07/232302 Starts/Ends: 12/07/232344 - 12/07/232310 Ordered Dose (Remaining/Total): 1,000 mL (0/1) Route: intravenous Frequency: Once Ordered Rate/Order Duration: -- / -- Line Med Link Info Comment Peripheral IV 12/03/23 18 G Anterior;Distal;Left;Upper Arm 12/07/232310 by Alana Guerrero RN -- Timestamps Action Dose Route Other Information 12/07/232310 New Bag 1,000 mL intravenous Performed by: Alana Guerrero RN Scanned Package: [id number] metoprolol tartrate (LOPRESSOR) immediate release tablet 25 mg [[id number]] Ordering Provider: Gabriel Harmon NP Status: Dispensed Ordered On: 12/08/23 1316 Start: 12/09/23 0900 Ordered Dose (Remaining/Total): 25 mg (--/--) Route: oral Frequency: 2 times daily Ordered Rate/Order Duration: -- / -- Timestamps Action Dose Route Other Information 12/12/23 0829 Given 25 mg oral Performed by: Collette Jackson RN Scanned Package: 86138-915-00 furosemide (LASIX) tablet 40 mg [[id number]] Ordering Provider: Opal Whitney NP Status: Dispensed Ordered On: 12/09/23 1123 Start: 12/09/23 1200 Ordered Dose (Remaining/Total): 40 mg (--/--) Route: oral Frequency: 2 times daily (for diuretics) Ordered Rate/Order Duration: -- / -- Timestamps Action Dose Route Other Information 12/12/23 0826 Given 40 mg oral Performed by: Collette Jackson RN Scanned Package: 61525-354-20 , OT Eval and Treat Last Documented OT ASSESSMENT FLOWSHEET LAST DOCUMENTED (most recent) OT Evaluation - 12/12/23 0730 Cognition Orientation Oriented X4 (person, place, time, situation) OT TREATMENT FLOWSHEET LAST DOCUMENTED (most recent) OT Treatment - 12/12/23 0730 Cognition Orientation Oriented X4 (person, place, time, situation) OT Notes 12/10/2023 12:46 PM Progress Notes signed by Maikel Gordon, OT , PT Eval and Treat Last Documented OT ASSESSMENT FLOWSHEET LAST DOCUMENTED (most recent) PT Evaluation - 12/12/23 0730 Cognition Orientation Oriented X4 (person, place, time, situation) PT TREATMENT (most recent) PT Treatment - 12/12/23 0730 Cognition Orientation Oriented X4 (person, place, time, situation) PT Notes 12/10/2023 1:08 PM Progress Notes signed by Amy Jean, PT 12/11/2023 7:19 PM Progress Notes signed by Amy Jean, PT * Plan of Care - Fabiana Amaya RN - 12/12/2023 9:08 AM CDT Per Medical Chart/Rounds/IDR: Patient is medically ready for discharge to IRF ADD: 12/11 VS 12/12 Plan & referrals made/in place: P2P was denied for IRF but approved for SNF. Patient requesting: [facility] --referral sent in [facility] 12/11 and is pending acceptance Support following discharge: spouse Sunita ([phone]) Transportation: [facility] to be scheduled by CM at id Plan for weekend discharge: For weekend discharge: Insurance denied IRF but approved SNF. Patient will need [facility] arranged to IRF. PCS form started with incomplete discharge packet placed by patient chart. Discharge packet contains face sheet, acute care transfer and authorization order form (needs signature), and post acute care transfer report. Packet will need signed discharge summary, and AVS added to it. For weekend assistance, please check the treatment team in [facility] for the assigned case therapist or contact the weekend Case Management phone * Plan of Care - Collette Jackson RN - 12/12/2023 7:17 AM CDT Problem: Lack of Knowledge Goal: Ability to develop a pain control plan will improve Outcome: Progressing Flowsheets (Taken 12/12/2023713) Ability to develop a pain control plan will improve: Teach information regarding pain management Problem: Medication Goal: Satisfaction with pain management medication regimen will improve Outcome: Progressing Flowsheets (Taken 12/12/2023713) Satisfaction with pain management medication regimen will improve: Assess satisfaction with pain management regimen Evaluate medication effects Manage analgesics Problem: Sensory Goal: Ability to identify factors that increase pain levels will improve while working to decrease the patient's pain levels Outcome: Progressing Flowsheets (Taken 12/12/2023713) Ability to identify factors that increase pain levels will improve while working to decrease patients pain levels: Assess pain status Observe non-verbal cues of discomfort, such as restlessness, muscle tension, or altered vital signs Encourage distraction activities Problem: Neurosensory Goal: Achieves stable or improved neurological status Outcome: Progressing Flowsheets (Taken 12/12/2023713) Achieves Stable or Improved Neurological Status: Assess for and report changes in neurological status Goal: Achieves maximal functionality and self care Outcome: Progressing Flowsheets (Taken 12/12/2023713) Achieves maximal functionality and self care: Encourage and assist patient to increase activity andself care with guidance from therapies Problem: Respiratory Goal: Achieves optimal ventilation and oxygenation Outcome: Progressing Flowsheets (Taken 12/12/2023713) Achieves optimal ventilation and oxygenation: Assess for changes in respiratory status Position to facilitate oxygenation and minimize respiratory effort Goal: Ability to maintain a clear airway will improve Outcome: Progressing Flowsheets (Taken 12/12/2023713) Ability to maintain a clear airway will improve: Evaluate breath sounds Problem: Skin/Tissue Integrity Goal: Skin integrity remains intact Outcome: Progressing Flowsheets (Taken 12/12/2023713) Skin integrity remains intact: Assess and document risk factors for pressure injury development Assess and document skin integrity Monitor for areas of redness and/or skin breakdown Goal: Incisions, wounds, or drain sites healing without S/S of infection Outcome: Progressing Flowsheets (Taken 12/12/2023713) Incision(s), Wound(s) or Drain Site(s) healing without S/S of infection: Assess and document risk factors for pressure injury development Assess and document skin integrity Goal: Oral mucous membranes remain intact Description: Outcome: Progressing Flowsheets (Taken 12/12/2023713) Oral mucous membranes remain intact: Assess oral mucosa and hygiene practices Goals: Clinical Goals for the Shift: VSS, OOB safely, pain control, I+O Summary: VSS, safety maintained, Hygiene needs met, Patient ambulated halls with minimal assist, pain meds administered. * Plan of Care - Kaylynn Armendariz RN - 12/12/2023 3:14 AM CDT Problem: Discharge Planning Goal: Understanding discharge needs will improve Outcome: Progressing Problem: Lack of Knowledge Goal: [...] health care needs will improve Outcome: Progressing Problem: Fluid Volume Goal: Will regain or maintain balanced intake and output Outcome: Progressing Problem: Physical Regulation Goal: Ability to re-establish a normal urinary elimination pattern will improve Outcome: Progressing Problem: Sensory (Pain) Goal: Pain levels will decrease Outcome: Progressing Problem: Skin Integrity Goal: Wound appearance will improve during the postoperative course Outcome: Progressing Problem: Neurosensory Goal: Achieves stable or improved neurological status Outcome: Progressing Goal: Achieves maximal functionality and self care Outcome: Progressing Problem: Respiratory Goal: Achieves optimal ventilation and oxygenation Outcome: Progressing Goal: Ability to maintain a clear airway will improve Outcome: Progressing Problem: Cardiovascular Goal: Maintains optimal cardiac output and hemodynamic stability Outcome: Progressing Goal: Absence of cardiac dysrhythmias or at baseline Outcome: Progressing Problem: Skin/Tissue Integrity Goal: Skin integrity remains intact Outcome: Progressing Goal: Incisions, wounds, or drain sites healing without S/S of infection Outcome: Progressing Goal: Oral mucous membranes remain intact Description: Outcome: Progressing Problem: Gastrointestinal Goal: Maintains or returns to baseline bowel function Outcome: Progressing Goal: Maintains adequate nutritional intake Outcome: Progressing Problem: Genitourinary Goal: Absence of urinary retention Outcome: Progressing Problem: Infection Goal: Absence of infection during hospitalization Outcome: Progressing Problem: Metabolic/Fluid and Electrolytes Goal: Electrolytes maintained within normal limits Outcome: Progressing Goal: Hemodynamic stability and optimal renal function maintained Outcome: Progressing Problem: Skin Integrity Impairment Risk Goal: Mobility will improve Outcome: Progressing Goal: Understanding of ways to prevent future skin breakdown will improve Outcome: Progressing Goal: Nutritional status will improve Outcome: Progressing Goal: Risk for impaired skin integrity will decrease Outcome: Progressing Problem: Fall Risk Goal: Ability to state ways to decrease the risk of falls will improve Outcome: Progressing Goal: Will remain free from falls Outcome: Progressing Goal: Will remain free from injury from falls Outcome: Progressing Goals: Clinical Goals for the Shift: rest, pain control and monitor vs Summary: Pt resting comfortably. Pain controlled with oxycodone. VS documented. Safety measures in place and implemented. * Plan of Rebecca - Dina Ramos RN - 12/11/2023 12:26 PM CDT Per Medical Chart/Rounds/IDR: Patient is medically ready for discharge to IRF ADD: pending P2P 12/10 Plan & referrals made/in place: IRF: [facility] (P:[phone]) -accepted, auth started 12/07, P2P requested 12/10 by 1630 to [phone]. FIELD SERVICE REP notified. Facility contact: Heather Duran (P: [phone]) Weekend contact: Lizzy (P: [phone]) Support following discharge: spouse Sunita ([phone]) Transportation: [facility] to be scheduled by CM at id Plan for weekend discharge: For weekend discharge, follow up with facility regarding outcome of peer to peer. If insurance auth approved, contact Lizzy ([phone]) regarding bed availability, room number, and report number for RN. Patient will need [facility] arranged to IRF. PCS form started with incomplete discharge packet placed by patient chart. Discharge packet contains face sheet, acute care transfer and authorization order form (needs signature), and post acute care transfer report. Packet will need signed discharge summary, and AVS added to it. For weekend assistance, please check the treatment team in [facility] [employer] for the assigned case therapist or contact the weekend Case Management phone * Plan of Care - Collette Jackson RN - 12/11/2023 9:59 AM CDT Problem: Lack of Knowledge Goal: Ability to develop a pain control plan will improve Outcome: Progressing Problem: Medication Goal: Satisfaction with pain management medication regimen will improve Outcome: Progressing Problem: Neurosensory Goal: Achieves stable or improved neurological status Outcome: Progressing Flowsheets (Taken 12/11/2023 0900) Achieves Stable or Improved Neurological Status: Assess for and report changes in neurological status Goal: Achieves maximal functionality and self care Outcome: Progressing Flowsheets (Taken 12/11/2023 0900) Achieves maximal functionality and self care: Encourage and assist patient to increase activity andself care with guidance from therapies Problem: Respiratory Goal: Achieves optimal ventilation and oxygenation Outcome: Progressing Flowsheets (Taken 12/11/2023899) Achieves optimal ventilation and oxygenation: Assess for changes in respiratory status Goal: Ability to maintain a clear airway will improve Outcome: Progressing Flowsheets (Taken 12/11/2023899) Ability to maintain a clear airway will improve: Evaluate breath sounds Problem: Cardiovascular Goal: Maintains optimal cardiac output and hemodynamic stability Outcome: Progressing Flowsheets (Taken 12/11/2023899) Maintain optimal cardiac output and hemodynamic Stability: Monitor vital signs, rhythm, and trends Goal: Absence of cardiac dysrhythmias or at baseline Outcome: Progressing Flowsheets (Taken 12/11/2023899) Absence of cardiac dysrhythmias or at baseline: Continuous cardiac monitoring, monitor vital signs,obtain 12 lead EKG if indicated Problem: Skin/Tissue Integrity Goal: Skin integrity remains intact Outcome: Progressing Flowsheets (Taken 12/11/2023899) Skin integrity remains intact: Assess and document risk factors for pressure injury development Assess and document skin integrity Monitor for areas of redness and/or skin breakdown Goal: Incisions, wounds, or drain sites healing without S/S of infection Outcome: Progressing Flowsheets (Taken 12/11/2023899) Incision(s), Wound(s) or Drain Site(s) healing without S/S of infection: Assess and document risk factors for pressure injury development Assess and document skin integrity Assess and document dressing/incision, wound bed, drain sites and surrounding tissue Goal: Oral mucous membranes remain intact Description: Outcome: Progressing Flowsheets (Taken 12/11/2023899) Oral mucous membranes remain intact: Assess oral mucosa and hygiene practices Problem: Gastrointestinal Goal: Maintains or returns to baseline bowel function Outcome: Progressing Flowsheets (Taken 12/11/2023899) Maintains or returns to baseline bowel function: Assess bowel function, evaluate bowel sounds and signs of abdominal distention Goal: Maintains adequate nutritional intake Outcome: Progressing Flowsheets (Taken 12/11/2023899) Maintains adequate nutritional intake: Monitor I&O, weight and lab values Goals: Clinical Goals for the Shift: VSS, OOB safely, pain control, I+O Summary: VSS, pain meds administered, safety maintained, I+O monitored * Plan of Care - Dina Ramos RN - 12/10/2023 11:37 AM CDT Per Medical Chart/Rounds/IDR: Patient is medically ready for discharge to IRF ADD: 12/09 vs 12/10 pending insurance auth Plan & referrals made/in place: IRF: [facility] (P:[phone]) -accepted, auth started 12/07 (pending) CM reached out to IRF liasiHeather harris (P: [phone]) who stated insurance auth is stillpending. Support following discharge: spouse Sunita ([phone]) Transportation: [facility] to be scheduled by CM at id Patient's Identified Problem/Goal Problem: Ensure acute medical needs are met and that patient has a safe discharge plan. Goal: Secure a discharge plan that patient/family are agreeable with and ensure patient has continuum of care. Patient and/or family are agreeable with plan. digital experience manager will continue to follow and assist with discharge planning as needed. If any further discharge needs arise, please contact the covering case therapist. * Plan of Care - Alannah Paredes RN - 12/09/2023 1:23 PM CDT Per Medical Chart/Rounds/IDR: not medically ready-needs to be off IV pain meds for 24 hours prior to discharge ADD: 12/09 Plan & referrals made/in place: [facility] accepted patient and started insurance auth yesterday. digital experience manager reached out to clinical liasiHeather harris at [phone] and auth is still pending. Support following discharge: Transportation: EMS to be scheduled Patient's Identified Problem/Goal Problem: Ensure acute medical needs are met and that patient has a safe discharge plan. Goal: Secure a discharge plan that patient/family are agreeable with and ensure patient has continuum of care. Patient and/or family are agreeable with plan. digital experience manager will continue to follow and assist with discharge planning as needed. If any further discharge needs arise, please contact the covering case therapist. * Plan of Care - Collette Jackson RN - 12/09/2023 8:00 AM CDT Problem: Lack of Knowledge Goal: Ability to develop a pain control plan will improve Outcome: Progressing Flowsheets (Taken 12/09/2023699) Ability to develop a pain control plan will improve: Teach information regarding pain management Problem: Medication Goal: Satisfaction with pain management medication regimen will improve Outcome: Progressing Flowsheets (Taken 12/09/2023699) Satisfaction with pain management medication regimen will improve: Assess satisfaction with pain management regimen Problem: Sensory Goal: Ability to identify factors that increase pain levels will improve while working to decrease the patient's pain levels Outcome: Progressing Flowsheets (Taken 12/09/2023699) Ability to identify factors that increase pain levels will improve while working to decrease patients pain levels: Assess pain status Problem: Coping Goal: Ability to cope will improve Outcome: Progressing Problem: Neurosensory Goal: Achieves stable or improved neurological status Outcome: Progressing Flowsheets (Taken 12/09/2023699) Achieves Stable or Improved Neurological Status: Assess for and report changes in neurological status Goal: Achieves maximal functionality and self care Outcome: Progressing Flowsheets (Taken 12/09/2023699) Achieves maximal functionality and self care: Encourage and assist patient to increase activity and self care with guidance from therapies Encourage visually impaired, hearing impaired and aphasic patients to use assistive/communication devices Problem: Respiratory Goal: Achieves optimal ventilation and oxygenation Outcome: Progressing Flowsheets (Taken 12/09/2023699) Achieves optimal ventilation and oxygenation: Assess for changes in respiratory status Goal: Ability to maintain a clear airway will improve Outcome: Progressing Flowsheets (Taken 12/09/2023699) Ability to maintain a clear airway will improve: Evaluate breath sounds Problem: Cardiovascular Goal: Maintains optimal cardiac output and hemodynamic stability Outcome: Progressing Flowsheets (Taken 12/09/2023699) Maintain optimal cardiac output and hemodynamic Stability: Monitor vital signs, rhythm, and trends Monitor for bleeding, hypotension and signs of decreased cardiac output Goal: Absence of cardiac dysrhythmias or at baseline Outcome: Progressing Flowsheets (Taken 12/09/2023699) Absence of cardiac dysrhythmias or at baseline: Continuous cardiac monitoring, monitor vital signs,obtain 12 lead EKG if indicated Problem: Skin/Tissue Integrity Goal: Skin integrity remains intact Outcome: Progressing Flowsheets (Taken 12/09/2023699) Skin integrity remains intact: Assess and document risk factors for pressure injury development Assess and document skin integrity Goal: Incisions, wounds, or drain sites healing without S/S of infection Outcome: Progressing Flowsheets (Taken 12/09/2023699) Incision(s), Wound(s) or Drain Site(s) healing without S/S of infection: Assess and document risk factors for pressure injury development Goal: Oral mucous membranes remain intact Description: Outcome: Progressing Flowsheets (Taken 12/09/2023699) Oral mucous membranes remain intact: Assess oral mucosa and hygiene practices Problem: Gastrointestinal Goal: Maintains or returns to baseline bowel function Outcome: Progressing Flowsheets (Taken 12/09/2023699) Maintains or returns to baseline bowel function: Assess bowel function, evaluate bowel sounds and signs of abdominal distention Goal: Maintains adequate nutritional intake Outcome: Progressing Flowsheets (Taken 12/09/2023699) Maintains adequate nutritional intake: Monitor I&O, weight and lab values Problem: Fall Risk Goal: Ability to state ways to decrease the risk of falls will improve Outcome: Progressing Flowsheets (Taken 12/09/2023699) Ability to state ways to decrease the risk of falls will improve: Teach fall prevention measures Goal: Will remain free from falls Outcome: Progressing Flowsheets (Taken 12/09/2023699) Will remain free from falls: Assess risk factors for falls Goal: Will remain free from injury from falls Outcome: Progressing Flowsheets (Taken 12/09/2023699) Will remain free from injury from falls: Provide safe environment for conduction of activities of daily living in hospital environment Goals: Clinical Goals for the Shift: VSS, safety, I+O, pain control Summary: VSS, safety maintained, pain meds administered, mobility * Plan of Care - Marlee Roche RN - 12/08/2023 6:30 PM CDT Problem: Discharge Planning Goal: Understanding discharge needs will improve Outcome: Progressing Flowsheets (Taken 12/07/2023 1455 by Jeannie Genao I., MEDINA) Understanding of discharge needs will improve: Discuss information regarding discharge instructions Identify discharge barriers Identify discharge learning needs (meds, wound care, etc.) Problem: Lack of Knowledge Goal: Ability to develop a pain control plan will improve Outcome: Progressing Flowsheets (Taken 12/07/2023 1455 by Jeannie Genao I., MEDINA) Ability to develop a pain control plan will improve: Teach information regarding pain management Explain causes of pain and how long pain can be expected to last Educate pain scale for assessing level of pain Teach notification to healthcare provider of episodes of pain Problem: Sensory Goal: Ability to identify factors that increase pain levels will improve while working to decrease the patient's pain levels Flowsheets (Taken 12/08/2023 0400 by Alana Guerrero, MEDINA) Ability to identify factors that increase pain levels will improve while working to decrease patients pain levels: Assess pain status Observe non-verbal cues of discomfort, such as restlessness, muscle tension, or altered vital signs Problem: Health Behavior Goal: Identification of resources available to assist in meeting health care needs will improve Recent Flowsheet Documentation Taken 12/08/2023 1800 by Marlee Roche RN Identification of resources available to assist in meeting health care needs will improve: Collaborate with pain management Refer to pain support group Problem: Skin Integrity Goal: Wound appearance will improve during the postoperative course Recent Flowsheet Documentation Taken 12/08/2023 1800 by Marlee Roche RN Wound appearance will improve during the postoperative course: Monitor wound vac Assess wound tunneling Problem: Respiratory Goal: Achieves optimal ventilation and oxygenation Recent Flowsheet Documentation Taken 12/08/2023 1800 by Marlee Roche RN Achieves optimal ventilation and oxygenation: Assess for changes in respiratory status Assess for changes in mentation and behavior Goal: Ability to maintain a clear airway will improve Recent Flowsheet Documentation Taken 12/08/2023 1800 by Marlee Roche RN Ability to maintain a clear airway will improve: Manage endotrachial intubation Manage non-invasive mechanical ventilation Problem: Skin/Tissue Integrity Goal: Skin integrity remains intact Recent Flowsheet Documentation Taken 12/08/2023 1800 by Marlee Roche RN Skin integrity remains intact: Assess and document risk factors for pressure injury development Assess and document skin integrity Goal: Incisions, wounds, or drain sites healing without S/S of infection Recent Flowsheet Documentation Taken 12/08/2023 1800 by Marlee Roche RN Incision(s), Wound(s) or Drain Site(s) healing without S/S of infection: Assess and document risk factors for pressure injury development Assess and document skin integrity Problem: Gastrointestinal Goal: Maintains or returns to baseline bowel function Recent Flowsheet Documentation Taken 12/08/2023 1800 by Marlee Roche RN Maintains or returns to baseline bowel function: Assess bowel function, evaluate bowel sounds and signs of abdominal distention Monitor amount, characteristics and/or frequency of stool Goal: Maintains adequate nutritional intake Recent Flowsheet Documentation Taken 12/08/2023 1800 by Marlee Roche RN Maintains adequate nutritional intake: Monitor percentage of each meal consumed Identify factors contributing to decreased intake, treat as appropriate Problem: Infection Goal: Absence of infection during hospitalization Recent Flowsheet Documentation Taken 12/08/2023 1800 by Marlee Roche RN Absence of infection during hospitalization: Assess and monitor for signs and symptoms of infection Monitor lab/diagnostic results Problem: Fall Risk Goal: Ability to state ways to decrease the risk of falls will improve Recent Flowsheet Documentation Taken 12/08/2023 1800 by Marlee Roche RN Ability to state ways to decrease the risk of falls will improve: Teach fall prevention measures Goal: Will remain free from falls Recent Flowsheet Documentation Taken 12/08/2023 1800 by Marlee Roche RN Will remain free from falls: Implement fall prevention measures Assess risk factors for falls Goal: Will remain free from injury from falls Recent Flowsheet Documentation Taken 12/08/2023 1800 by Marlee Roche RN Will remain free from injury from falls: Provide safe environment for conduction of activities of daily living in hospital environment Goals: Clinical Goals for the Shift: Vital signs monitoring, pain control, OOB and safety transfers Summary: Pt alert and oriented * 4, V/s stable (BP base line), pain control with oxycodone, TLSO brace, will continues to monitor. * Significant Event - Herson Read MD - 12/08/2023 4:22 PM CDT General Cardiology Sign-Off Note & Recommendations Patient Name: Macie Briseno Date of : 1945 Cardiovascular Diagnosis: Atrial Fibrillation Inpatient Cardiology Attending: Dr. Linn Summary of Consultation: Patient is a 78 y/o female with a history of apical variant HCM and paroxysmal AF here post-op fromspinal surgery. She has had further episodes of paroxysmal atrial fibrillation leading to hypotension and requiring cardioversion. She was restarted on amiodarone with an oral load and metoprolol. Medication Recommendations: Continue amiodarone oral load which should continue until she follows up with her primary senior cyber intelligence analyst Continue metoprolol tartrate 25mg BID Hold home diltiazem Pending studies for follow-up by primary service or primary care provider: None Outpatient Follow-Up Plan: Follow-up with the patient's established cardiology care provider in 4 weeks. If the appointment has not been scheduled by the time of discharge, please provide the following information to the patient on the discharge instructions: If you have not received information within a week of discharge regarding a follow-up appointment with [facility], please contact our office at . Thank you for involving us in the care of this patient. If you have any additional questions or concerns during this admission, please contact the respective cardiology consult team listed on [employer] [place], from Thursday-Thursday, 7:30 am - 4:30 pm, you may reach the Cardiology Consult Line at . For patients or family members viewing this note: This note was written as a communication tool between health care providers and may contain technical language, terminology, and abbreviations that are difficult to interpret without advanced medicaltraining. If you have questions or concerns regarding what is written in this note, please contact our office, or, if you or your family member are admitted to the hospital, the primary team responsible for your care. * [facility] Note - Alannah Paredes RN - 12/08/2023 11:07 AM CDT Images from the original note were not included. Patient Information: OT Eval and Treat Last 72 Hours OT Evaluation Row Name 12/07/23 1045 12/03/23 5624 Chart Reviewed Yes -EL -- Session Type Evaluation -EL -- OT Received On 12/07/23 -EL -- Safe Environment Arm band checked;Patient found sitting in chair -EL -- Subjective Agreeable to Therapy -EL -- OT Missed Visit Reason -- Family declined;Patient declined Pt and family member declined participation in OT at this time. Stated pt recently had a panic attack and received medication that is makingher too sleepy to participate. Verbalized understanding that OT would not be able to check back today -SS Family/Caregiver Present No -EL -- Precautions Drains;Fall risk;Spinal/Back -EL -- Weight Bearing Restrictions No -EL -- Braces/Orthoses TLSO -EL -- Precaution Comments verbally reviewed precautions with patient -EL -- Type of Home House -EL -- Home Layout Multi-level -EL -- Home Access Stairs to enter with rails -EL -- Entrance Stairs-Number of Steps Pt uses stair lift to enter the home from garage -EL -- Bathroom Shower/Tub Walk-in shower without threshold -EL -- Bathroom Toilet Standard -EL -- Bathroom Equipment Shower chair;Grab bars in shower/tub -EL -- Bathroom Accessibility Accessible -EL -- Home Mobility Equipment-Available Wheeled walker;Single point cane -EL -- Home Mobility Equipment-Currently Using None -EL -- Level of [place] Independent with ADLs;Independent functional transfers;Independent with ambulation -EL -- Lives With Spouse -EL -- Receives Help From Spouse/Significant other FT assist from -EL -- ADL Assistance Independent -EL -- Instrumental ADL (IADL) Assistance Independent -EL -- Fall within the last 6 months No -EL -- ADLS (WDL) X -EL -- Grooming: Where assessed Standing at sink -EL -- Grooming: Level of assistance Minimum Assist -EL -- Grooming: Assistance with Increased time to complete;Safety;Balance -EL -- LE Dressing: Where assessed Chair -EL -- LE Dressing: Level of assistance Moderate Assist -EL -- LE Dressing: Assistance with Don/doff R sock;Don/doff L sock;Thread RLE into pants;Thread LLE into pants;Thread RLE into underwear;Thread LLE into underwear -EL -- LE Dressing: Equipment Utilized -- Pt reported no further concerns as spouse will assist post discharge. -EL -- Toilet Transfer From Chair with arms -EL -- Toilet Transfer Type To and from -EL -- Toilet Transfer to Standard bedside commode simulated -EL -- Toilet Transfer Technique Ambulating -EL -- Toilet Transfer: Equipment Wheeled walker -EL -- Toilet Transfers Minimal assistance -EL -- Toilet Transfers Comments Min A for safety, balance, and force production -EL -- Pain Assessment No/denies pain -EL -- Arousal/Alertness Alert;Appropriate responses to stimuli -EL -- Attention Span Appears intact -EL -- Current communication Appears Intact -EL -- Orientation Oriented X4 (person, place, time, situation) -EL -- Following Commands Follows all commands and directions without difficulty -EL -- Safety Judgment Good awareness of safety precautions -EL -- Awareness of Errors Good awareness of errors made -EL -- Insight Fully aware of deficits -EL -- Problem Solving Able to problem solve independently -EL -- Compliance/Behavior Easy to engage -EL -- Perseveration Not present -EL -- Balance Tests Yes -EL -- Sitting Balance 1 -EL -- Arises 1 -EL -- Attempts to Arise 0 -EL -- Immediate Standing Balance (First 5 Seconds) 1 -EL -- Standing Balance 1 -EL -- Nudged 0 -EL -- Eyes Closed 1 -EL -- Turned 360 Degrees: Steadiness 0 -EL -- Turned 360 Degrees: Continuity of Steps 0 -EL -- Sitting Down 1 -EL -- Balance Score 6 -EL -- Balance Yes -EL -- Static Sitting-Balance Support Feet supported;Bilateral upper extremity supported -EL -- Static Sitting-Sitting Surface Chair -EL -- Static Sitting-Level of Assistance Close supervision -EL -- Static Sitting-Comment/# of Minutes safety -EL -- Static Standing-Balance Support Bilateral upper extremity supported using WW -EL -- Static Standing-Standing Surface Floor -EL -- Static Standing-Level of Assistance Minimum assistance -EL -- Static Standing-Comment/# of Minutes Min A for safety and steadying assist -EL -- Bed Mobility No Pt found and left in chair -EL -- Transfer Yes -EL -- Transfer From 1 Sit -EL -- Transfer Type 1 To and from -EL -- Transfer to 1 Stand -EL -- Technique 1 Sit to stand;Stand to sit -EL -- Transfer Device 1 Wheeled walker -EL -- Transfer Level of Assistance 1 Minimum Assist -EL -- Trials/Comments 1 Min A for safety, balance, and force production -EL -- RUE Assessment WFL -EL -- LUE Assessment WFL -EL -- Putting on and taking off regular lower body clothing 2 -EL -- Bathing 2 -EL -- Toileting 2 -EL -- Putting on and taking off upper body clothing 3 -EL -- Personal Grooming 3 -EL -- Eating Meals 3 -EL -- Total Score (range 6-24) 15 -EL -- Score Interpretation 34.69 -EL -- Safe Environment End of Therapy Session Patient left in chair;RN notified;Call light within reach;Overbed table within reach -EL -- Problem List Decreased endurance;Decreased balance;Decreased functional mobility;Decreased ADL independence;Decreased IADL independence -EL -- Barriers to Discharge Current Mobility Status;Current ADL Status -EL -- Barrier Comments fall risk -EL -- Plan Plan of care initiated;If this is the last note, consider this the discharge summary -EL -- OT Recommendation Inpatient Rehab Facility -EL -- Patient at high risk for Falls;Readmission;Injury due to balance deficits;Injury due to impaired cognition;Injury due to reduced functional status;Injury due to decreased ability to care for self -EL-- Recommend Inpatient Rehab/Acute Rehab due to Ability to actively participate in intensive therapy 3hours/day, 5 days/week or 900 minutes per week;Highly motivated to participate in therapy;Not at baseline due to impaired ability to complete ADLs;Impaired ability to complete functional mobility;Likely to return to the community at discharge with support system in place;Requires greater than 25% physical assistance with most mobility tasks;Requires greater than 25% physical assistance with most ADL tasks;Requires skilled therapy interventions to address neurological deficits;Patient and caregiver require specialized skilled training due to new level of function/diagnosis;Requires multiple the rapy disciplines to address functional deficits -EL -- OT Frequency during current admission 5-7x/wk -EL -- Treatment/Interventions during current admission ADL/IADL retraining;Balance Training;Bed mobility;Endurance training;Functional activity;Functional mobility training;Functional transfer training;Strengthening;Therapeutic activity;Therapeutic exercise;Transfer training -EL -- OT - Next Appointment 12/08/23 -EL -- OT Evaluation Complete Yes -EL -- User Khanna (r) = Recorded By, (t) = Taken By, (c) = Cosigned By Initials Name Effective Dates EL Rika Andrade, OT 02/20/23 - SS Gisel Esquivel OT 01/23/23 - OT Treatment No documentation. OT Notes 12/07/2023 12:25 PM Progress Notes signed by Rika Andrade, OT , PT Eval and Treat Last 72 Hours PT Evaluation Row Name 12/03/23 1151 Chart Reviewed Yes -LG Session Type Evaluation -LG Safe Environment Arm band checked;Patient found in supine;Session completed bedside;Gait belt utilized for all out of bed mobility -LG Subjective Agreeable to Therapy -LG Family/Caregiver Present Yes spouse -LG Physical Therapy-Patient Goal Pt wants to be able to walk on her own again. -LG Precautions Fall risk;Spinal/Back -LG Type of Home House -LG Home Layout Multi-level stair lift -LG Home Access Level entry -LG Home Mobility Equipment-Available Wheeled walker;Single point cane -LG Home Mobility Equipment-Currently Using None -LG Level of [place] Independent functional transfers;Independent with ambulation -LG Lives With Spouse -LG Receives Help From Spouse/Significant other FT -LG Fall within the last 6 months No -LG Pain Assessment 0-10 -LG Pain Score 10 - Worst possible pain -LG Pain Location Back (Lumbar) -LG Pain Interventions RN Notified -LG Arousal/Alertness Alert;Appropriate responses to stimuli -LG Orientation Oriented X4 (person, place, time, situation) -LG Following Commands Follows all commands and directions without difficulty -LG Light Touch WFL B LE -LG Sensation Comments bilateral LE skin integrity intact -LG Balance Tests Yes -LG 1. Sitting to Standing 0 -LG 2. Standing Unsupported 0 -LG 3. Sitting with Back Unsupported but Feet Supported on Floor or on a Stool 3 -LG 4. Standing to Sitting 0 -LG 5. Transfers 1 -LG 6. Standing Unsupported with Eyes Closed 0 -LG 7. Standing Unsupported with Feet Together 0 -LG 8. Reach Forward with Outstretched Arm While Standing 0 -LG 9. Model Dresser Object from Floor from a Standing Position 0 -LG 10. Turning to Look Behind Over Left and Right Shoulders While Standing 0 -LG 11. Turn 360 Degrees 0 -LG 12. Place Alternate Foot on Step or Stool While Standing Unsupported 0 -LG 13. Standing Unsupported One Foot in Front 0 -LG 14. Standing on One Leg 0 -LG Erickson Balance Score 4 -LG Balance Yes -LG Static Sitting-Balance Support No upper extremity supported;Feet supported -LG Static Sitting-Sitting Surface Bed -LG Static Sitting-Level of Assistance Close supervision -LG Static Standing-Balance Support No upper extremity supported -LG Static Standing-Standing Surface Floor -LG Static Standing-Level of Assistance Moderate assistance -LG Bed Mobility Yes -LG Bed Mobility From 1 Supine -LG Bed Mobility Type 1 To -LG Bed Mobility to 1 Edge of bed -LG Level of Assistance 1 Minimum Assist -LG Bed Mobility Comments 1 assist with elevation of trunk and maneuvering LEs -LG Transfer Yes -LG Transfer From 1 Sit -LG Transfer Type 1 To and from -LG Transfer to 1 Stand -LG Technique 1 Sit to stand;Stand to sit -LG Transfer Device 1 No device -LG Transfer Level of Assistance 1 Moderate Assist -LG Trials/Comments 1 decreased force production, decreased balance -LG Transfer From 2 Bed -LG Transfer Type 2 To -LG Transfer to 2 Chair with arms -LG Technique 2 Stand and step -LG Transfer Device 2 Hand held assist -LG Transfer Level of Assistance 2 Moderate Assist -LG Trials/Comments 2 decreased force production, decreased balance, B LE blocked, knees buckle -LG Ambulation No -LG Stairs No -LG RUE Assessment WFL -LG LUE Assessment WFL -LG RLE Assessment WFL -LG LLE Assessment WFL -LG How much difficulty does the patient have: Turning over in bed 3 -LG How much difficulty does the patient currently have: Sitting down and standing up from a chair witharms? 2 -LG How much difficulty does the patient have: Moving from lying on back to sitting on the side of the bed? 3 -LG How much difficulty does the patient have: Moving to and from a bed to a chair including wheelchair? 2 -LG How much help does the patient currently need: Walk in hospital room? 2 -LG How much help from another person does the patient currently need: Climbing 3-5 steps with a railing? 1 -LG Total 6 Click Score (range 6-24) 13 - Score Interpretation 33.99 - Safe Environment End of Therapy Session Call light within reach;Bed in lowest position with wheels locked;Patient left in recliner - Problem List Gait deviations;Decreased strength;Decreased range of motion;Decreased endurance;Impaired balance;Decreased mobility - Problem List Comments PT Diagnosis: Revision PSF [id number], decompression results in above listed activity deficits and impairments which prevent full participation in home and community mobility - Plan If this is the last note, consider this the discharge summary;Plan of care initiated - PT Recommendation/Plan Inpatient Rehab Facility - Patient at high risk for Falls;Injury due to reduced functional status;Injury due to balance deficits - Recommend Inpatient Rehab/Acute Rehab due to Ability to actively participate in intensive therapy 3hours/day, 5 days/week or 900 minutes per week;Impaired ability to complete functional mobility;Requires greater than 25% physical assistance with most mobility tasks;Requires skilled therapy interventions to address neurological deficits - PT Frequency during current admission 5-7x/wk - Treatment/Interventions during current admission Balance Training;Bed mobility;Functional activity;Functional transfer training;Gait training;Neuromuscular re-education;Strengthening;Therapeutic activ ity;Therapeutic exercise - PT Evaluation Complete Yes -LG User Khanna (r) = Recorded By, (t) = Taken By, (c) = Cosigned By Initials Name Effective Dates LG Belén Alvarez Roxanne, PT 04/18/19 - PT TREATMENT (last 168 hours) PT Treatment Row Name 12/07/23 0850 12/05/23 0805 12/04/23 1059 PT Last Visit Session Type Treatment -MM Treatment -MB Treatment -EZ (r) MB (c) Safe Environment Arm band checked;Session completed bedside -MM Arm band checked;Patient found in supine;Gait belt not utilized, see comment 08/28 TLSO -MB Arm band checked;Patient found in supine;Gaitbelt not utilized, see comment TLSO -EZ (r) MB (c) Subjective Agreeable to Therapy -MM Agreeable to Therapy -MB Agreeable to Therapy -EZ (r) MB (c) Family/Caregiver Present No -MM Yes -MB No -EZ (r) MB (c) Current Functional Status PT Functional Mobility -- Therapeutic activities to improve functional strength and endurance -MB ther act for improvement of functional mobility and endurance -EZ (r) MB (c) Precautions Precautions Drains;Fall risk;Spinal/Back -MM Drains;Fall risk;Spinal/Back -MB Fall risk;Spinal/Back-EZ (r) MB (c) Weight Bearing Restrictions No -MM -- No -EZ (r) MB (c) Braces/Orthoses TLSO Donned prior to session by RN -MM TLSO custom TLSO donned in supine -MB TLSO -EZ (r) MB (c) Precaution Handout Issued -- -- No -EZ (r) MB (c) Precaution Comments Verbally reviewed precautions, patient verbalized understanding -MM Verbally reviewed spine precautions -MB -- Activity Tolerance Activity Tolerance Comments Karyna: SE (06/15) -MM RPE: medium -MB RPE deferred - EZ (r) MB (c) Pain Assessment Pain Assessment No/denies pain -MM -- -- Pain Interventions -- -- RN Notified RN notified but stated pt had already received pain medicationprior to session -EZ (r) MB (c) Cognition Arousal/Alertness Alert;Appropriate responses to stimuli -MM -- Alert;Appropriate responses to stimuli -EZ (r) MB (c) Orientation Oriented X4 (person, place, time, situation) -MM -- Oriented to person;Oriented to place;Oriented to situation -EZ (r) MB (c) Following Commands Follows all commands and directions without difficulty -MM Follows all commands and directions without difficulty -MB Follows multistep commands with increased time -EZ (r) MB (c) Safety Judgment -- Good awareness of safety precautions -MB Good awareness of safety precautions -EZ (r) MB (c) Compliance/Behavior -- Easy to engage -MB Easy to engage -EZ (r) MB (c) Balance Tests Balance Tests -- -- Yes -EZ (r) MB (c) Erickson Balance Scale 1. Sitting to Standing -- -- -- -EZ (r) MB (c) 2. Standing Unsupported -- -- -- -EZ (r) MB (c) 3. Sitting with Back Unsupported but Feet Supported on Floor or on a Stool -- -- -- -EZ (r) MB (c) 4. Standing to Sitting -- -- -- -EZ (r) MB (c) 5. Transfers -- -- -- -EZ (r) MB (c) 6. Standing Unsupported with Eyes Closed -- -- -- -EZ (r) MB (c) 7. Standing Unsupported with Feet Together -- -- -- -EZ (r) MB (c) 8. Reach Forward with Outstretched Arm While Standing -- -- -- -EZ (r) MB (c) 9. Model Dresser Object from Floor from a Standing Position -- -- -- -EZ (r) MB (c) 10. Turning to Look Behind Over Left and Right Shoulders While Standing -- -- -- -EZ (r) MB (c) 11. Turn 360 Degrees -- -- -- -EZ (r) MB (c) 12. Place Alternate Foot on Step or Stool While Standing Unsupported -- -- -- - EZ (r) MB (c) 13. Standing Unsupported One Foot in Front -- -- -- -EZ (r) MB (c) 14. Standing on One Leg -- -- -- -EZ (r) MB (c) Erickson Balance Score -- -- -- -EZ Balance Balance Yes -MM Yes -MB Yes -EZ (r) MB (c) Static Sitting Balance Static Sitting-Balance Support Unilateral upper extremity supported;No upper extremity supported -MM Feet supported;Bilateral upper extremity supported -MB Bilateral upper extremity supported;Feet supported UE supported on bed -EZ (r) MB (c) Static Sitting-Sitting Surface Chair back unsupported -MM Bed -MB Bed -EZ (r) MB (c) Static Sitting-Level of Assistance Distant supervision -MM Close supervision -MB Close supervision -EZ (r) MB (c) Static Sitting-Comment/# of Minutes Sup for safety -MM Cues for use of BUE to assist with upright posture -MB verbal cues for improved posture and safety -EZ (r) MB (c) Static Standing Balance Static Standing-Balance Support Bilateral upper extremity supported WW -MM Bilateral upper extremity supported supported on PT -MB Bilateral upper extremity supported UE supported on PTs arms -EZ (r)MB (c) Static Standing-Standing Surface Floor -MM Floor -MB Floor -EZ (r) MB (c) Static Standing-Level of Assistance Contact guard -MM Minimum assistance -MB Minimum assistance -EZ(r) MB (c) Static Standing-Comment/# of Minutes CGA for steadying assist -MM Min A to maintain hip/knee/trunk extension and balance -MB min A x2 for maintenance of balance -EZ (r) MB (c) ICU Mobility Scale ICU Mobility Scale 8 -MM 5 -MB 5 -EZ (r) MB (c) FSS-ICU Functional Status Score (ICU scale) Rolling 0 -MM 5 -MB 2 -EZ (r) MB (c) Supine to Sit 0 -MM 0 -MB 2 -EZ (r) MB (c) Sitting 5 -MM 5 -MB 5 -EZ (r) MB (c) Sit to Stand 4 -MM 4 -MB 2 -EZ (r) MB (c) Ambulation or Wheelchair Mobility? Ambulation -MM Ambulation -MB Ambulation -EZ (r) MB (c) Ambulation 4 -MM 0 -MB 0 -EZ (r) MB (c) FSS Interpretation -- - calculated average score -MB 14 -EZ (r) MB (c) Bed Mobility Bed Mobility No Patient up to chair with RN -MM Yes -MB Yes -EZ (r) MB (c) Bed Mobility 1 Bed Mobility From 1 -- Supine -MB Supine -EZ (r) MB (c) Bed Mobility Type 1 -- To and from -MB To and from -EZ (r) MB (c) Bed Mobility to 1 -- Rolling right;Rolling left -MB Side lying-right;Side lying- left -EZ (r) MB (c) Level of Assistance 1 -- Standby Assist -MB Minimum Assist -EZ (r) MB (c) Bed Mobility Comments 1 -- Cues for safety and sequencing, pt rolled R x1 and L x2 throughout treatment -MB min A x2 for maintenance of balance -EZ (r) MB (c) Bed Mobility 2 Bed Mobility From 2 -- Side lying-left -MB Supine -EZ (r) MB (c) Bed Mobility Type 2 -- To -MB To -EZ (r) MB (c) Bed Mobility to 2 -- Edge of Bed -MB Edge of Bed -EZ (r) MB (c) Level of Assistance 2 -- Minimum Assist -MB Moderate Assist -EZ (r) MB (c) Bed Mobility Comments 2 -- Min A for force production, trunk elevation and positioning hips at EOB -MB mod A x2 for elevation of trunk and movement of LEs; HOB flat, log roll -EZ (r) MB (c) Transfers Transfer Yes -MM Yes -MB Yes -EZ (r) MB (c) Transfer 1 Transfer From 1 Sit -MM Sit -MB Sit -EZ (r) MB (c) Transfer Type 1 To and from -MM To and from -MB To and from -EZ (r) MB (c) Transfer to 1 Stand -MM Stand -MB Stand -EZ (r) MB (c) Technique 1 Sit to stand;Stand to sit -MM Sit to stand;Stand to sit -MB Sit to stand;Stand to sit -EZ (r) MB (c) Transfer Device 1 Wheeled walker -MM No device -MB No device -EZ (r) MB (c) Transfer Level of Assistance 1 Minimum Assist -MM Minimum Assist -MB Minimum Assist -EZ (r) MB (c) Trials/Comments 1 Min A for force production and steadying assist, Patient demonstrates adequate eccentric control required for a controlled descent into chair -MM Min A for force production, hip/knee/trunk extension and controlled descent to sit. -MB min A x2 for force production -EZ (r) MB (c) Transfers 2 Transfer From 2 -- Bed -MB Bed -EZ (r) MB (c) Transfer Type 2 -- To -MB To -EZ (r) MB (c) Transfer to 2 -- Chair with arms -MB Chair with arms -EZ (r) MB (c) Technique 2 -- Stand and step -MB Stand and step -EZ (r) MB (c) Transfer Device 2 -- No device -MB No device -EZ (r) MB (c) Transfer Level of Assistance 2 -- Minimum Assist -MB Minimum Assist -EZ (r) MB (c) Trials/Comments 2 -- Min A for balance, weight shifting, and pivoting hips to chair. Noted drop in BP during transfer, pt reports dizziness in standing but resolves once seated with residual increased in BP. -MB min A x2 for maintenance of balance and verbal cues required to encourage stepping -EZ (r) MB (c) Ambulation Ambulation Yes -MM No 2/2 symptomatic hypotension -MB No deferred 2/2 pt report of pain and SOB with mobility -EZ (r) MB (c) Ambulation 1 Distance (ft) 1 50 x2 -MM -- -- Surface 1 Level tile -MM -- -- Device 1 Wheeled walker -MM -- -- Other Apparatus 1 Wheelchair follow -MM -- -- Assistance 1 Minimum Assist;Contact Guard Assist -MM -- -- Gait: Requires assist with 1 Maintaining balance -MM -- -- Gait: Requires verbal cues to 1 Use assistive device safely;Follow precautions/weight bearing status;Utilize appropriate gait sequencing -MM -- -- Gait Deviations 1 Step length - decreased;Weight bearing through UE???s - increased;Tanya - decreased;Hip/knee flexion during swing phase - decreased;Heel strike - decreased -MM -- -- Ambulation Comments 1 10m walk test: 0.72m/s -MM -- -- Stairs Stairs No -MM No -MB No -EZ (r) MB (c) Stair Comments Not performed due to ICU line burden -MM -- -- Other Comments Other PT Comments -- Pt and pt's agreeable to PT POC and d/c recs. Pt limited this date 2/2 hypotension but demonstrates improved tolerance to mobility. -MB pt agreeable to SPT POC and d/c recs -EZ (r) MB (c) Basic Mobility - 6 Click How much difficulty does the patient have: Turning over in bed 3 -MM 3 -MB 3 -EZ (r) MB (c) How much difficulty does the patient currently have: Sitting down and standing up from a chair witharms? 3 -MM 3 -MB 3 -EZ (r) MB (c) How much difficulty does the patient have: Moving from lying on back to sitting on the side of the bed? 3 -MM 3 -MB 2 -EZ (r) MB (c) How much difficulty does the patient have: Moving to and from a bed to a chair including wheelchair? 3 -MM 3 -MB 3 -EZ (r) MB (c) How much help does the patient currently need: Walk in hospital room? 3 -MM 3 - MB 2 -EZ (r) MB (c) How much help from another person does the patient currently need: Climbing 3-5 steps with a railing? 2 -MM 2 -MB 2 -EZ (r) MB (c) Total 6 Click Score (range 6-24) 17 -MM 17 -MB 15 -EZ Score Interpretation 39.67 -MM 39.67 -MB 36.97 -EZ (r) MB (c) Safe Environment End of Therapy Session Safe Environment End of Therapy Session RN notified;Call light within reach;Overbed table within reach;Patient left in chair -MM Patient left in recliner;RN notified;Call light within reach -MB Patient left in chair;RN notified;Call light within reach;Overbed table within reach -EZ (r) MB (c) Assessment Prognosis Good -MM Good -MB Good -EZ (r) MB (c) Problem List Decreased strength;Impaired balance;Decreased mobility;Decreased coordination;Orthopedic restrictions;Pain -MM Decreased strength;Impaired balance;Decreased mobility;Decreased coordination;Orthopedic restrictions;Pain - MB Decreased strength;Decreased endurance;Impaired balance;Decreased mobility - EZ (r) MB (c) Problem List Comments PT Diagnosis: Revision PSF [id number], decompression results in above listed activity deficits and impairments which prevent full participation in home and community mobility -MM -- -- Barriers to Discharge Current Mobility Status -MM -- Current Mobility Status -EZ (r) MB (c) Plan Plan Continue with current plan;If this is the last note, consider this the discharge summary -MM Continue with current plan;If this is the last note, consider this the discharge summary -MB Continuewith current plan;If this is the last note, consider this the discharge summary -EZ (r) MB (c) Recommendation/Plan PT Recommendation/Plan Inpatient Rehab Facility -MM Inpatient Rehab Facility -MB Inpatient Rehab Facility -EZ (r) MB (c) Patient at high risk for Falls;Readmission;Injury due to reduced functional status;Injury due to balance deficits -MM Falls;Readmission;Injury due to reduced functional status;Injury due to balance deficits -MB Falls;Readmission;Injury due to reduced functional status;Injury due to decreased ability to care for self;Injury due to balance deficits;Injury at home as patient has not returned to prior level of function -EZ (r) MB (c) Recommend Inpatient Rehab/Acute Rehab due to Ability to actively participate in intensive therapy 3hours/day, 5 days/week or 900 minutes per week;Highly motivated to participate in therapy;Impaired ability to complete functional mobility;Requires greater than 25% physical assistance with most mobility tasks;Requires multiple therapy disciplines to address functional deficits -MM Ability to actively participate in intensive therapy 3 hours/day, 5 days/week or 900 minutes per week;Highly motivated to participate in therapy;Impaired ability to complete functional mobility;Requires greater than 25% physical assistance with most mobility tasks;Requires multiple therapy disciplines to address functional deficits -MB Ability to actively participate in intensive therapy 3 hours/day, 5 days/week or 900 minutes per week;Not at baseline due to impaired ability to complete ADLs;Impaired ability tocomplete functional mobility;Requires greater than 25% physical assistance with most mobility tasks; Likely to return to the community at discharge with support system in place -EZ (r) MB (c) PT Recommendation/Plan Comments Patient agreeable with current plan of care -MM -- -- PT Frequency during current admission 5-7x/wk -MM 5-7x/wk -MB 5-7x/wk -EZ (r) MB (c) Treatment/Interventions during current admission Balance Training;Bed mobility;Endurance training;Equipment eval/education;Functional activity;Functional transfer training;Gait training;Neuromuscularre- education;Strengthening;Therapeutic activity;Therapeutic exercise -MM Balance Training;Bed mobility;Endurance training;Equipment eval/education;Functional activity;Functional transfer training;Gait training;Neuromuscular re- education;Strengthening;Therapeutic activity;Therapeutic exercise -MB Balance Training;Bed mobility;Endurance training;Functional transfer training;Gait training;Stair training;Strengthening;Therapeutic activity;Therapeutic exercise -EZ (r) MB (c) PT Equipment Recommended Other (Comment) Pending progress -MM None -MB None -EZ (r) MB (c) Progress during current admission Progressing toward goals -MM Progressing toward goals -MB Progressing toward goals -EZ (r) MB (c) PT Evaluation Complete Yes -MM -- -- User Khanna (r) = Recorded By, (t) = Taken By, (c) = Cosigned By Initials Name Effective Dates Liz David, PT 06/27/19 - MM Jeremy Saucedo, PT 04/23/23 - Rika Pemberton 10/01/23 - 12/06/23 PT Notes 12/07/2023 12:49 PM Progress Notes signed by Jeremy Saucedo, PT * Plan of Care - Alannah Paredes RN - 12/08/2023 11:06 AM CDT Vehicle Assembler noted patient has been recommended for inpatient rehab by PT/OT. Vehicle Assembler met withthe patient/family at bedside to discussion recommendations by therapy and to work on a potential discharge disposition plan. Vehicle Assembler provided education to patient/family on the rehabilitation process. Patient reported he/she was interested in placement for rehabilitation. digital experience manager provided a facility list to patient and family. Patient and family selected the following choices (preference order): [facility]. Clinical liaison from [facility] met with patient, and patient would like to proceed. Insurance auth started. digital experience manager sent out referrals via [facility]. CM awaiting acceptance from a facility and will continue to work on discharge planning with patient and family. * Plan of Care - Alana Guerrero RN - 12/08/2023 4:05 AM CDT Goals: Clinical Goals for the Shift: Vital signs monitoring, pain control, OOB and safety transfers Summary: Problem: Discharge Planning Goal: Understanding discharge needs will improve Outcome: Progressing Problem: Lack of Knowledge Goal: Ability to develop a pain control plan will improve Outcome: Progressing Problem: Medication Goal: Satisfaction with pain management medication regimen will improve Outcome: Progressing Problem: Sensory Goal: Ability to identify factors that increase pain levels will improve while working to decrease the patient's pain levels Outcome: Progressing Flowsheets (Taken 12/08/2023 0400) Ability to identify factors that increase pain levels will improve while working to decrease patients pain levels: Assess pain status Observe non-verbal cues of discomfort, such as restlessness, muscle tension, or altered vital signs Problem: Coping Goal: Ability to cope will improve Outcome: Progressing Problem: Health Behavior Goal: Identification of resources available to assist in meeting health care needs will improve Outcome: Progressing Problem: Fluid Volume Goal: Will regain or maintain balanced intake and output Outcome: Progressing Problem: Physical Regulation Goal: Ability to re-establish a normal urinary elimination pattern will improve Outcome: Progressing Problem: Sensory (Pain) Goal: Pain levels will decrease Outcome: Progressing Problem: Skin Integrity Goal: Wound appearance will improve during the postoperative course Outcome: Progressing Problem: Neurosensory Goal: Achieves stable or improved neurological status Outcome: Progressing Flowsheets (Taken 12/08/2023399) Achieves Stable or Improved Neurological Status: Assess for and report changes in neurological status Goal: Achieves maximal functionality and self care Outcome: Progressing Flowsheets (Taken 12/08/2023399) Achieves maximal functionality and self care: Encourage and assist patient to increase activity andself care with guidance from therapies Problem: Respiratory Goal: Achieves optimal ventilation and oxygenation Outcome: Progressing Flowsheets (Taken 12/08/2023399) Achieves optimal ventilation and oxygenation: Assess for changes in respiratory status Goal: Ability to maintain a clear airway will improve Outcome: Progressing Flowsheets (Taken 12/08/2023399) Ability to maintain a clear airway will improve: Evaluate breath sounds Problem: Cardiovascular Goal: Maintains optimal cardiac output and hemodynamic stability Outcome: Progressing Goal: Absence of cardiac dysrhythmias or at baseline Outcome: Progressing Problem: Skin/Tissue Integrity Goal: Skin integrity remains intact Outcome: Progressing Flowsheets (Taken 12/08/2023399) Skin integrity remains intact: Assess and document risk factors for pressure injury development Goal: Incisions, wounds, or drain sites healing without S/S of infection Outcome: Progressing Flowsheets (Taken 12/08/2023399) Incision(s), Wound(s) or Drain Site(s) healing without S/S of infection: Assess and document risk factors for pressure injury development Goal: Oral mucous membranes remain intact Description: Outcome: Progressing Problem: Gastrointestinal Goal: Maintains or returns to baseline bowel function Outcome: Progressing Goal: Maintains adequate nutritional intake Outcome: Progressing Problem: Genitourinary Goal: Absence of urinary retention Outcome: Progressing Goal: Urinary catheter remains patent Outcome: Progressing Problem: Infection Goal: Absence of infection during hospitalization Outcome: Progressing Problem: Metabolic/Fluid and Electrolytes Goal: Electrolytes maintained within normal limits Outcome: Progressing Goal: Hemodynamic stability and optimal renal function maintained Outcome: Progressing Goal: Glucose maintained within prescribed range Outcome: Progressing Problem: Skin Integrity Impairment Risk Goal: Mobility will improve Outcome: Progressing Flowsheets (Taken 12/08/2023399) Mobility will improve: Encourage mobilization to extent of ability, assist with range of motion as needed Goal: Understanding of ways to prevent future skin breakdown will improve Outcome: Progressing Flowsheets (Taken 12/08/2023399) Understanding of ways to prevent future skin breakdown will improve: Discuss treatments to protect skin integrity Goal: Nutritional status will improve Outcome: Progressing Flowsheets (Taken 12/08/2023399) Nutritional status will improve: Assist with appropriate dietary choices Encourage nutritional intake Goal: Risk for impaired skin integrity will decrease Outcome: Progressing Flowsheets (Taken 12/08/2023399) Risk for impaired skin integrity will decrease: Monitor skin integrity, appearance and temperature Problem: Fall Risk Goal: Ability to state ways to decrease the risk of falls will improve Outcome: Progressing Flowsheets (Taken 12/08/2023399) Ability to state ways to decrease the risk of falls will improve: Teach fall prevention measures Goal: Will remain free from falls Outcome: Progressing Flowsheets (Taken 12/08/2023399) Will remain free from falls: Assess risk factors for falls Goal: Will remain free from injury from falls Outcome: Progressing Flowsheets (Taken 12/08/2023399) Will remain free from injury from falls: Provide safe environment for conduction of activities of daily living in hospital environment * Significant Event - Chinyere Abreu NP - 12/07/2023 7:23 PM CDT CHUGG-OUT (SICU to OU/Floor Transfer) SICU HANDOFF 78yo s/p [id number] PSF, post op course c/b Afib RVR req DCCV, chemical cardioversion w/ hypotension req NE PMH: Hypertension, Hyperlipidemia, CAD, CHF, RBBB, A-fib with dual lead ICD, chronic pain, PALA withcochlear implant Hosp Course 12/01: [id number] PSIF, TTF post op 12/02: (pm) afib rvr/SVT, rates to 160's, received 325 mg ASA & SL NTG 2/2 c/f STEMI, became hypotensive, amio bolus + gtt, emergency DCCV, HR briefly 70-80's then 120-130's, TTSICU 12/03: Cardiology c/s, AF with RVR overnight, amio bolus x 2 and restart gtt 5/12: transition to PO amio, borderline BPs with initiation of metoprolol, afib RVR overnight, amiobolus x1 12/06: increase PO amio Plan of care: #Afib with RVR on chronic paroxysmal Afib - 12/02: AF with RVR and ACT called. DCCV with brief conversion to paced rhythm before reverting backin AF with rates 110-120's. Given amio bolus - 12/03: AF with RVR again overnight, amio bolus x 2 and started on amio gtt - pt has [employer] dual lead PPM with ICD in place. Back up rate 60 - 12/06: Afib RVR overnight with amio bolus x1 - Continue PO amio load - Holding metoprolol 2/2 hypotension when initiated - Cardiology following - Touched base again with Ortho Spine today; no therapeutic AC until POD 30 - Continuous tele, optimize electrolytes #Acute pain - ELAINA tylenol 1000mg Q6H - ELAINA robaxin 750mg Q8H - Lidocaine patches - PRN oxycodone 7.5mg Q3H - PRN dilaudid 0.2mg Q4H - Pain goal < 4 #Thoracolumbar pseudoarthrosis, chronic - 12/01: s/p [id number] PSF revision - Ortho spine primary - Q4H NC - Monitor AUDREY output - Brace per Ortho spine - PT/OT - Per Ortho spine, no therapeutic AC until POD 30 #Urinary retention - failed void trial 12/04 - holding flomax with c/f hypotension - Void trial tomorrow #Hypertrophic cardiomyopathy, chronic - 12/03 TTE: EF 76%, LV cavity size normal with hyperdynamic function, moderate lateral and septal apical hypertrophy suggesting apical varient HCM, no apical aneurysm, no LVOT obstruction, LA mildly dilated, normal RV cavity size and function, mild MR, mild TR, estimated PASP 25 mmHg + RAP (3), normal diastolic function - [employer] dual lead PPM with ICD in place. Back up rate 60 - Holding home lasix - Cardiology following MD Consults: [] ACCS [x] Cardiology [] Endo [] ENT [] GI [] Hand [] ID [] Neuro [] NSGY [] Ortho [] Pain [] PRS [] Renal [] Spine-NSGY [x] Spine-Ortho [] Urology [] Other: Rehab/Ancillary Consults: [] BI (trauma patient with LOC) [] Chemical dependency [x] PT [x] OT [] Speech [] PM&R [] SMART (stroke patient) [] Wound care SITUATIONAL AWARENESS PERTINENT physical exam findings on day of transfer: Neuro: AXO-4, REED, follow commands, PERRL. 5/5 BUE, 4/5 LLE, 5/5 RLE CV: S1S2, RRR PULM: clear lung sounds bilateral GI: Soft/NT/ND/normoactive BS : Bedoya Extremities: No edema, pulses X4 palpable Drains: AUDREY x1 with serosanguineous output, Bed[place] New findings that warrant follow-up and pending studies: [] Yes--describe: [x] None Important changes to home medications: [x] Home medications stopped/on hold: metoprolol, lasix [] Dose changes: [] No notable changes Disposition/Planning: Eval by LTAC/Rehab/SNF [] Yes [x] No [] N/A Facility: [facility] Contact: Sunita Miranda (spouse) [phone] CURRENT ANTICOAGULANT THERAPY [x] VTE Prophylaxis [] Heparin [x] Lovenox [x] SCDs [] IVC Filter [] Other: [] None - Reason: [] Therapeutic Anticoagulation Indication: [] Heparin [] Lovenox [] Other: Any previous issues with tolerating anticoagulants? [] Yes [x] No Describe: Venous duplex performed? [] Yes ---> Most recent findings: [x] No CURRENT ANTIMICROBIAL THERAPY [x] N/A - No current antimicrobial therapy LINES/DRAINS/AIRWAYS PRESENT Peripheral IV 12/03/23 Right Antecubital (Active) Number of days: 4 Peripheral IV 12/03/23 18 G Anterior;Distal;Left;Upper Arm (Active) Number of days: 4 Urethral Catheter (Active) Number of days: 1 TO-DO LIST PRIOR TO TRANSFER Make sure the following monitors or precautions are ordered if indicated: Telemetry [x] Yes [] No Continuous pulse oximetry [] Yes [x] No MIGUEL A precautions [] Yes [x] No Difficult airway [] Yes [x] No Trach orders/signage [] Yes [x] No Size/Type: Date placed: Did patient require insulin while in SICU? [] Yes, scheduled insulin [] Yes, sliding scale only ----> d/c SICU insulin and order floor sliding scale insulin [x] No ----> d/c SICU insulin and blood glucose checks Is the patient receiving TPN? [] Yes ----> [] Today's bag is ordered [x] No Central line necessary? [] Yes [] No [x] N/A Groin line necessary? [] Yes [] No [x] N/A [x] Discontinue K/Mg/Phos repletion order (if applicable) [x] Discontinue stress ulcer prophylaxis if no longer indicated [x] Discontinue ICU alcohol withdrawal order set (meds and nursing communications -- replace with floor order set if ongoing therapy needed) [x] Signed & Held orders reconciled (all orders either released or discontinued) [x] Sign-out was called to Angel of the ortho spine service. QUESTIONS? Call [phone] ([phone]). * Plan of Care - Jeannie Genao RN - 12/07/2023 3:01 PM CDT Goals: Clinical Goals for the Shift: pain control, up to chair, monitor HR and rhythm Summary: Medicated PRN for pain per MAR. Up to chair x 6 hours and ambulating with PT/OT. NSR throughout shift. Pt with orders to transfer out of ICU, awaiting bed placement. Problem: Discharge Planning Goal: Understanding discharge needs will improve Outcome: Progressing Flowsheets (Taken 12/07/2023 145) Understanding of discharge needs will improve: Discuss information regarding discharge instructions Identify discharge barriers Identify discharge learning needs (meds, wound care, etc.) Problem: Lack of Knowledge Goal: Ability to develop a pain control plan will improve Outcome: Progressing Flowsheets (Taken 12/07/2023 145) Ability to develop a pain control plan will improve: Teach information regarding pain management Explain causes of pain and how long pain can be expected to last Educate pain scale for assessing level of pain Teach notification to healthcare provider of episodes of pain Problem: Medication Goal: Satisfaction with pain management medication regimen will improve Outcome: Progressing Flowsheets (Taken 12/07/2023 1455) Satisfaction with pain management medication regimen will improve: Assess satisfaction with pain management regimen Provide administration of medications prior to painful activities Evaluate medication effects Manage analgesics Report inadequate pain control to healthcare provider Problem: Sensory Goal: Ability to identify factors that increase pain levels will improve while working to decrease the patient's pain levels Outcome: Progressing Flowsheets (Taken 12/07/20231454) Ability to identify factors that increase pain levels will improve while working to decrease patients pain levels: Assess pain status Observe non-verbal cues of discomfort, such as restlessness, muscle tension, or altered vital signs Assess effects of pain control measures Evaluate treatment plan for related conditions Problem: Coping Goal: Ability to cope will improve Outcome: Progressing Flowsheets (Taken 12/07/20231454) Ability to cope will Improve: Encourage vebalization of feelings surrounding pain Assess beliefs of pain Problem: Health Behavior Goal: Identification of resources available to assist in meeting health care needs will improve Outcome: Progressing Flowsheets (Taken 12/07/20231454) Identification of resources available to assist in meeting health care needs will improve: Collaborate with all therapies Problem: Fluid Volume Goal: Will regain or maintain balanced intake and output Outcome: Progressing Flowsheets (Taken 12/07/20231454) Will regain or maintain a balanced intake and output: Monitor for signs and symptoms of shock Evaluate need to continue vascular access Problem: Physical Regulation Goal: Ability to re-establish a normal urinary elimination pattern will improve Outcome: Progressing Flowsheets (Taken 12/07/20231454) Ability to reestablish a normal urinary elimination pattern will improve: Monitor signs and symptoms of urinary retention Problem: Sensory (Pain) Goal: Pain levels will decrease Outcome: Progressing Flowsheets (Taken 12/07/20231454) Pain levels will decrease: Assess pain status Provide pain control measures Provide administration of medications prior to painful activities Problem: Skin Integrity Goal: Wound appearance will improve during the postoperative course Outcome: Progressing Flowsheets (Taken 12/07/20231454) Wound appearance will improve during the postoperative course: Provide drainage tube or reservoir care Problem: Neurosensory Goal: Achieves stable or improved neurological status Outcome: Progressing Flowsheets (Taken 12/07/20231454) Achieves Stable or Improved Neurological Status: Assess for and report changes in neurological status Maintain blood pressure and fluid volume within ordered parameters to optimize cerebral perfusion and minimize risk of hemorrhage Monitor temperature, glucose, and sodium. Initiate appropriate interventions as ordered Goal: Achieves maximal functionality and self care Outcome: Progressing Flowsheets (Taken 12/07/20231454) Achieves maximal functionality and self care: Encourage and assist patient to increase activity and self care with guidance from therapies Monitor swallowing and airway patency with patient fatigue and changes in neurological status Problem: Respiratory Goal: Achieves optimal ventilation and oxygenation Outcome: Progressing Flowsheets (Taken 12/07/20231454) Achieves optimal ventilation and oxygenation: Assess for changes in respiratory status Assess for changes in mentation and behavior Position to facilitate oxygenation and minimize respiratory effort Encourage broncho-pulmonary hygiene including cough, deep breathing, incentive spirometry Assess and instruct to report shortness of breath or any respiratory difficulty Manage oxygen therapy Goal: Ability to maintain a clear airway will improve Outcome: Progressing Flowsheets (Taken 12/07/20231454) Ability to maintain a clear airway will improve: Evaluate breath sounds Implement actions to maintain a patent airway Problem: Cardiovascular Goal: Maintains optimal cardiac output and hemodynamic stability Outcome: Progressing Flowsheets (Taken 12/07/20231454) Maintain optimal cardiac output and hemodynamic Stability: Monitor vital signs, rhythm, and trends Monitor for bleeding, hypotension and signs of decreased cardiac output Assess quality of pulses, skin color and temperature Assess for signs of decreased coronary artery perfusion - ex. angina Monitor urine output and notify provider of values outside normal range Goal: Absence of cardiac dysrhythmias or at baseline Outcome: Progressing Flowsheets (Taken 12/07/20231454) Absence of cardiac dysrhythmias or at baseline: Continuous cardiac monitoring, monitor vital signs, obtain 12 lead EKG if indicated Administer antiarrhythmic and heart rate control medications as ordered Monitor electrolytes and administer replacement therapy as ordered Problem: Skin/Tissue Integrity Goal: Skin integrity remains intact Outcome: Progressing Flowsheets (Taken 12/07/20231454) Skin integrity remains intact: Assess and document risk factors for pressure injury development Assess and document skin integrity Monitor for areas of redness and/or skin breakdown Goal: Incisions, wounds, or drain sites healing without S/S of infection Outcome: Progressing Flowsheets (Taken 12/07/20231454) Incision(s), Wound(s) or Drain Site(s) healing without S/S of infection: Assess and document risk factors for pressure injury development Assess and document skin integrity Assess and document dressing/incision, wound bed, drain sites and surrounding tissue Implement wound care per orders Goal: Oral mucous membranes remain intact Description: Outcome: Progressing Flowsheets (Taken 12/07/20231454) Oral mucous membranes remain intact: Assess oral mucosa and hygiene practices Problem: Gastrointestinal Goal: Maintains or returns to baseline bowel function Outcome: Progressing Flowsheets (Taken 12/07/20231454) Maintains or returns to baseline bowel function: Assess bowel function, evaluate bowel sounds and signs of abdominal distention Monitor amount, characteristics and/or frequency of stool Encourage oral fluids to ensure adequate hydration Administer ordered medications as needed Encourage mobilization and activity Goal: Maintains adequate nutritional intake Outcome: Progressing Flowsheets (Taken 12/07/20231454) Maintains adequate nutritional intake: Monitor percentage of each meal consumed Assist with meals as needed Obtain nutritional consult as needed Monitor I&O, weight and lab values Problem: Genitourinary Goal: Absence of urinary retention Outcome: Progressing Flowsheets (Taken 12/07/20231454) Absence of urinary retention: Assess patient???s ability to void and empty bladder Assess amount and/or characteristics of urine Monitor intake/output and perform bladder scan as needed Goal: Urinary catheter remains patent Outcome: Progressing Flowsheets (Taken 12/07/20231454) Urinary catheter remains patent: Assess patency of urinary catheter Problem: Infection Goal: Absence of infection during hospitalization Outcome: Progressing Flowsheets (Taken 12/07/20231454) Absence of infection during hospitalization: Assess and monitor for signs and symptoms of infection Monitor lab/diagnostic results Monitor all insertion sites i.e., indwelling lines, tubes and drains and evaluate for need daily Administer medications as ordered Instruct and encourage patient and family to use good hand hygiene technique Problem: Metabolic/Fluid and Electrolytes Goal: Electrolytes maintained within normal limits Outcome: Progressing Flowsheets (Taken 12/07/20231454) Electrolytes maintained within normal limits: Monitor labs and assess patient for signs and symptoms of electrolyte imbalances Administer electrolyte replacement as ordered Goal: Hemodynamic stability and optimal renal function maintained Outcome: Progressing Flowsheets (Taken 12/07/20231454) Hemodynamic stability and optimal renal function maintained: Monitor intake, output and patient weight Monitor response to interventions for patient's volume status, including labs, urine output, blood pressure (other measures as available) Encourage oral intake as appropriate Manage intravenous fluids Instruct patient on fluid and nutrition restrictions as appropriate Goal: Glucose maintained within prescribed range Outcome: Progressing Flowsheets (Taken 12/07/2023 1455) Glucose maintained within prescribed range: Assess for signs and symptoms of hyperglycemia and hypoglycemia, monitor glucose as ordered Problem: Skin Integrity Impairment Risk Goal: Mobility will improve Outcome: Progressing Flowsheets (Taken 12/07/20231454) Mobility will improve: Encourage mobilization to extent of ability, assist with range of motion as needed Collaborate with physical therapy Encourage turning and repositioning, assist as needed Encourage ambulation Goal: Understanding of ways to prevent future skin breakdown will improve Outcome: Progressing Flowsheets (Taken 12/07/20231454) Understanding of ways to prevent future skin breakdown will improve: Discuss treatments to protect skin integrity Discuss treatment plan for related conditions Goal: Nutritional status will improve Outcome: Progressing Flowsheets (Taken 12/07/20231454) Nutritional status will improve: Assess nutritional status Obtain nutritional consult Encourage nutritional intake Monitor intake and output Goal: Risk for impaired skin integrity will decrease Outcome: Progressing Flowsheets (Taken 12/07/20231454) Risk for impaired skin integrity will decrease: Identify risk factors for impaired skin integrity and/or pressure injuries Monitor skin integrity, appearance and temperature Provide pressure-redistribution bed, mattress and/or chair cushion Float heels off surface Protect skin from pressure due to medical devices when appropriate Problem: Fall Risk Goal: Ability to state ways to decrease the risk of falls will improve Outcome: Progressing Flowsheets (Taken 12/07/20231454) Ability to state ways to decrease the risk of falls will improve: Teach fall prevention measures Teach information regarding appropriate enviornmental changes Goal: Will remain free from falls Outcome: Progressing Flowsheets (Taken 12/07/20231454) Will remain free from falls: Assess risk factors for falls Implement fall prevention measures Goal: Will remain free from injury from falls Outcome: Progressing Flowsheets (Taken 12/07/20231454) Will remain free from injury from falls: Provide safe environment for conduction of activities of daily living in hospital environment Problem: Infection Goal: Absence of fever/infection during anticipated neutropenic period Outcome: Completed * Plan of Care - Kathleen Min RN - 12/07/2023 1:23 AM CDT Problem: Discharge Planning Goal: Understanding discharge needs will improve Outcome: Ongoing Problem: Lack of Knowledge Goal: Ability to develop a pain control plan will improve Outcome: Ongoing Problem: Medication Goal: Satisfaction with pain management medication regimen will improve Outcome: Ongoing Problem: Sensory Goal: Ability to identify factors that increase pain levels will improve while working to decrease the patient's pain levels Outcome: Ongoing Problem: Coping Goal: Ability to cope will improve Outcome: Ongoing Problem: Health Behavior Goal: Identification of resources available to assist in meeting health care needs will improve Outcome: Ongoing Problem: Fluid Volume Goal: Will regain or maintain balanced intake and output Outcome: Ongoing Problem: Physical Regulation Goal: Ability to re-establish a normal urinary elimination pattern will improve Outcome: Ongoing Problem: Sensory (Pain) Goal: Pain levels will decrease Outcome: Ongoing Problem: Skin Integrity Goal: Wound appearance will improve during the postoperative course Outcome: Ongoing Problem: Neurosensory Goal: Achieves stable or improved neurological status Outcome: Ongoing Goal: Achieves maximal functionality and self care Outcome: Ongoing Problem: Respiratory Goal: Achieves optimal ventilation and oxygenation Outcome: Ongoing Goal: Ability to maintain a clear airway will improve Outcome: Ongoing Problem: Cardiovascular Goal: Maintains optimal cardiac output and hemodynamic stability Outcome: Ongoing Goal: Absence of cardiac dysrhythmias or at baseline Outcome: Ongoing Problem: Skin/Tissue Integrity Goal: Skin integrity remains intact Outcome: Ongoing Goal: Incisions, wounds, or drain sites healing without S/S of infection Outcome: Ongoing Goal: Oral mucous membranes remain intact Description: Outcome: Ongoing Problem: Gastrointestinal Goal: Maintains or returns to baseline bowel function Outcome: Ongoing Goal: Maintains adequate nutritional intake Outcome: Ongoing Problem: Genitourinary Goal: Absence of urinary retention Outcome: Ongoing Goal: Urinary catheter remains patent Outcome: Ongoing Problem: Infection Goal: Absence of infection during hospitalization Outcome: Ongoing Goal: Absence of fever/infection during anticipated neutropenic period Outcome: Ongoing Problem: Metabolic/Fluid and Electrolytes Goal: Electrolytes maintained within normal limits Outcome: Ongoing Goal: Hemodynamic stability and optimal renal function maintained Outcome: Ongoing Goal: Glucose maintained within prescribed range Outcome: Ongoing Problem: Skin Integrity Impairment Risk Goal: Mobility will improve Outcome: Ongoing Goal: Understanding of ways to prevent future skin breakdown will improve Outcome: Ongoing Goal: Nutritional status will improve Outcome: Ongoing Goal: Risk for impaired skin integrity will decrease Outcome: Ongoing Problem: Fall Risk Goal: Ability to state ways to decrease the risk of falls will improve Outcome: Ongoing Goal: Will remain free from falls Outcome: Ongoing Goal: Will remain free from injury from falls Outcome: Ongoing Goals: Clinical Goals for the Shift: sleep hygiene, hemodyanmic stability Summary: Pt resting, pain intermittently medications given as ordered. Pt back in afib rates 120-130. Mag and Amio bolus given. * Plan of Care - Joey Velasquez RN - 12/06/2023 5:24 PM CDT Goals: Clinical Goals for the Shift: VSS, PO meds, pain control, ambulation, OOBTC, BM, e- repletion Summary: Problem: Discharge Planning Goal: Understanding discharge needs will improve Outcome: Progressing Problem: Lack of Knowledge Goal: [...] health care needs will improve Outcome: Progressing Problem: Fluid Volume Goal: Will regain or maintain balanced intake and output Outcome: Progressing Problem: Physical Regulation Goal: Ability to re-establish a normal urinary elimination pattern will improve Outcome: Progressing Problem: Sensory (Pain) Goal: Pain levels will decrease Outcome: Progressing Problem: Skin Integrity Goal: Wound appearance will improve during the postoperative course Outcome: Progressing Problem: Neurosensory Goal: Achieves stable or improved neurological status Outcome: Progressing Goal: Achieves maximal functionality and self care Outcome: Progressing Problem: Respiratory Goal: Achieves optimal ventilation and oxygenation Outcome: Progressing Goal: Ability to maintain a clear airway will improve Outcome: Progressing Problem: Cardiovascular Goal: Maintains optimal cardiac output and hemodynamic stability Outcome: Progressing Goal: Absence of cardiac dysrhythmias or at baseline Outcome: Progressing Problem: Skin/Tissue Integrity Goal: Skin integrity remains intact Outcome: Progressing Goal: Incisions, wounds, or drain sites healing without S/S of infection Outcome: Progressing Goal: Oral mucous membranes remain intact Description: Outcome: Progressing Problem: Gastrointestinal Goal: Maintains or returns to baseline bowel function Outcome: Progressing Goal: Maintains adequate nutritional intake Outcome: Progressing Problem: Genitourinary Goal: Absence of urinary retention Outcome: Progressing Goal: Urinary catheter remains patent Outcome: Progressing Problem: Infection Goal: Absence of infection during hospitalization Outcome: Progressing Goal: Absence of fever/infection during anticipated neutropenic period Outcome: Progressing Problem: Metabolic/Fluid and Electrolytes Goal: Electrolytes maintained within normal limits Outcome: Progressing Goal: Hemodynamic stability and optimal renal function maintained Outcome: Progressing Goal: Glucose maintained within prescribed range Outcome: Progressing Problem: Skin Integrity Impairment Risk Goal: Mobility will improve Outcome: Progressing Goal: Understanding of ways to prevent future skin breakdown will improve Outcome: Progressing Goal: Nutritional status will improve Outcome: Progressing Goal: Risk for impaired skin integrity will decrease Outcome: Progressing * Consults, Subsequent - Herson Read MD - 12/06/2023 3:35 PM CDT Cardiology Daily Progress Note - General Cardiology Chief complaint: Back pain Interval History: No events overnight and no recurrent atrial fibrillation on telemetry. Patient's only current complaint is some back pain. Objective Vital Signs: 24hr Min/Max: Temp Min: 36.4 ??C (97.5 ??F) Max: 36.8 ??C (98.2 ??F) Pulse Min: 64 Max: 84 BP Min: 93/38 Max: 121/49 Resp Min: 11 Max: 23 SpO2 Min: 91 % Max: 100 % Most Recent: Vitals: 12/06/23 1500 BP: 121/49 Pulse: 69 Resp: 11 Temp: SpO2: 98% Intake/Output: Intake/Output Summary (Last 24 hours) at 12/06/2023 1538 Last data filed at 12/06/2023 1500 Gross per 24 hour Intake 1686.23 ml Output 1893 ml Net -206.77 ml Physical Exam: General appearance: no acute distress HEENT: NCAT, MMM, anicteric Lungs: CTAB, no w/r/r, non-labored Heart: RRR, S1, S2 normal, no murmur, rub or gallop. JVP not elevated, no LE edema Abdomen: soft, NT/ND; bowel sounds normal Extremities: extremities normal, warm and well-perfused, equal pulses Skin: warm and dry Neurologic: No abnormal movements, non-focal exam Current Medications: Current Facility-Administered Medications: acetaminophen (TYLENOL) tablet 1,000 mg, 1,000 mg, oral, Q6H ELAINA, 1,000 mg at 12/06/23 1508 [START ON 12/07/2023] alendronate (FOSAMAX) weekly tablet 70 mg, 70 mg, oral, Q7 Days amiodarone (PACERONE) tablet 400 mg, 400 mg, oral, BID, 400 mg at 12/06/23 1000 bisacodyL (DULCOLAX) suppository 10 mg, 10 mg, rectal, Daily, 10 mg at 12/05/23 0841 bisacodyl EC (DULCOLAX EC) tablet 10 mg, 10 mg, oral, Daily PRN Carrier Fluids for Secondary Infusion - 0.9% Sodium Chloride, 30 mL, intravenous, PRN, 30 mL at 12/03/232056 cholecalciferol (VITAMIN D-3) capsule 2,000 Units, 2,000 Units, oral, QAM, 2,000 Units at 12/06/23 0950 doxepin (SINEquan) capsule 25 mg, 25 mg, oral, Nightly PRN, 25 mg at 12/04/232101 DULoxetine DR (CYMBALTA) extended release capsule 60 mg, 60 mg, oral, QAM, 60 mg at 12/06/23 0950 enoxaparin (LOVENOX) syringe 40 mg, 40 mg, subcutaneous, Daily-2100, 40 mg at 12/05/23 2142 fluticasone propionate (FLONASE) 50 mcg/actuation nasal spray 1 spray, 1 spray, each nostril, PRN HYDROmorphone (DILAUDID) injection 0.2 mg, 0.2 mg, intravenous, Q4H PRN, 0.2 mg at 12/06/23 1508 lidocaine (ASPERCREME) 4 % patch 2 patch, 2 patch, transdermal, Daily, 2 patch at 12/06/23 0952 magnesium hydroxide (MILK OF MAGNESIA) 80 mg/mL (33.3 mg/mL as elemental magnesium) oral [id number] mL, 30 mL, oral, Daily PRN methocarbamoL (ROBAXIN) tablet 500 mg, 500 mg, oral, Q8H, 500 mg at 12/06/23 0950 mineral oil (FLEET MINERAL OIL) enema 133 mL, 1 enema, rectal, Daily PRN multivitamin with folic acid 400 mcg tablet 1 tablet, 1 tablet, oral, Daily, 1 tablet at 12/06/23 0950 naloxone (NARCAN) 0.4 mg/mL injection 0.04-0.4 mg, 0.04-0.4 mg, intravenous, Q10 Min PRN ondansetron (ZOFRAN) injection 4 mg, 4 mg, intravenous, Q6H PRN, 4 mg at 12/05/23 1859 oxyCODONE (ROXICODONE) tablet 7.5 mg, 7.5 mg, oral, Q4H PRN, 7.5 mg at 12/06/[address] (PROTONIX) extended release tablet 40 mg, 40 mg, oral, Daily, 40 mg at 12/06/23 0950 prochlorperazine (COMPAZINE) injection 5 mg, 5 mg, intravenous, Q6H PRN senna-docusate (PERICOLACE) 8.6-50 mg per tablet 2 tablet, 2 tablet, oral, BID, 2 tablet at 12/06/23 0950 sodium chloride 0.9% flush 0.5-20 mL, 0.5-20 mL, intra-catheter, Q8H ELAINA, 10 mL at 12/06/23 1507 sodium chloride 0.9% flush 0.5-20 mL, 0.5-20 mL, intra-catheter, PRN Lab/Radiology/Diagnostic Review: Labs: Recent Labs Lab Units 12/05/23193612/05/23 0554 12/04/23 2128 12/03/23 2246 12/03/23 2107 12/03/23 0353 HEMOGLOBIN, POC -- -- -- < > -- -- HEMOGLOBIN g/dL 8.9* 8.6* 8.7* -- 10.2* 10.3* HEMATOCRIT % 25.9* 24.9* 25.8* -- 29.4* 30.6* HEMATOCRIT POC -- -- -- < > -- -- WBC K/cumm 9.5 9.7 11.1* -- 12.2* 11.4* PLATELETS K/cumm 173 168 148* -- 180 195 < > = values in this interval not displayed. Recent Labs Lab Units 12/05/23 1937 12/05/23 0554 12/04/23212712/04/23 1133 12/03/23210512/03/23 210 SODIUM mmol/L 135 139 136 137 -- 137 POTASSIUM PLASMA mmol/L 3.7 3.3 3.6 3.9 -- 4.3 CHLORIDE mmol/L 103 104 104 106 -- 104 CO2 mmol/L 25 27 26 26 -- 26 CO2 POC -- -- -- -- < > -- ANIONGAP mmol/L 7 8 6 5 -- 7 BUN SERUM mg/dL 5* 5* 7 9 -- 14 CREATININE mg/dL 0.56* 0.54* 0.54* 0.60 -- 0.80 CALCIUM mg/dL 8.2* 7.1* 7.8* 8.0* -- 8.1* MAGNESIUM mg/dL 2.2 2.1 1.8 2.0 -- 2.2 < > = values in this interval not displayed. Recent Labs Lab Units 12/04/23212712/03/232104 ALBUMIN g/dL 2.8* 3.2* ALK PHOS Units/L 84 99 AST Units/L 132* 197* ALT Units/L 76* 131* BILIRUBIN TOTAL mg/dL 0.3 0.6 BILIRUBIN DIRECT mg/dL -- <0.2 Recent Labs Lab Units 12/03/23 0353 12/02/23 1826 APTT sec 26* 28 INR 1.04 1.08 Recent Labs Lab Units 12/03/23 2259 12/03/23 2246 12/02/23 1629 PH ART 7.35 7.38 7.38 PCO2 ART mmHg 45 -- -- PO2 ART mmHg 147* -- -- PO2 ARTERIAL POC mmHg -- 81* 190* BASE EXC ART mmol/L -1 -- -- Cultures: Lab Results Component Value Date MICROBIOLOGY (.) 12/02/2023 Preliminary Report: Rare Staphylococcus epidermidis Susceptibility testing results to follow. Assessment/Plan Ms. Briseno is a 78 y.o. 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 Paroxysmal atrial fibrillation (CMS/HCC) (HCC) Assessment & Plan Patient with a history of atrial fibrillation on prior device interrogations that presents with AF with RVR and became hypotensive with metoprolol and IV amiodarone that required cardioversion now inSR -Given history of HCM requires anticoagulation. This can be started when safe from per her orthopedic spine team -Continue with amiodarone 400mg BID for 7 days, followed by amiodarone 400mg daily for 7 days and then drop to amiodarone 200mg daily until she follows up with her primary cardiologists (Dr. Talbert). When stable ok to restart her home metoprolol but would not restart her diltiazem -Suspect her elevated troponin is likely secondary to demand ischemia (currently denies any chest pain, shortness of breath or other ischemic symptoms) due to Apical HCM and possible microvascular dysfunction. At this time no indication for further ischemic evaluation Rest of the plan as per primary team. Thank you for the consult. We will continue to follow. Pleasecall with additional questions or concerns. Herson Read MD Mechanical Press Operator 3:38 PM 12/06/23 Cosigned by Amaury Linn MD at 12/06/2023 4:03 PM CDT Associated attestation - Amaury Linn MD - 12/06/2023 4:03 PM CDT Attending Documentation I have seen and examined the patient on 12/06/23. I agree with the findings and plan of care as documented in the resident's/fellow's note. Amaury Linn MD 12/06/2023 4:03 PM * Plan of Care - Delicia Clay RN - 12/05/2023 11:09 PM CDT Goals: Clinical Goals for the Shift: pain control; monitor labs, vitals; sleep hygiene Problem: Discharge Planning Goal: Understanding discharge needs will improve Outcome: Ongoing Problem: Lack of Knowledge Goal: Ability to develop a pain control plan will improve Outcome: Ongoing Problem: Medication Goal: Satisfaction with pain management medication regimen will improve Outcome: Ongoing Problem: Sensory Goal: Ability to identify factors that increase pain levels will improve while working to decrease the patient's pain levels Outcome: Ongoing Problem: Coping Goal: Ability to cope will improve Outcome: Ongoing Problem: Health Behavior Goal: Identification of resources available to assist in meeting health care needs will improve Outcome: Ongoing Problem: Fluid Volume Goal: Will regain or maintain balanced intake and output Outcome: Ongoing Problem: Physical Regulation Goal: Ability to re-establish a normal urinary elimination pattern will improve Outcome: Ongoing Problem: Sensory (Pain) Goal: Pain levels will decrease Outcome: Ongoing Problem: Skin Integrity Goal: Wound appearance will improve during the postoperative course Outcome: Ongoing Problem: Neurosensory Goal: Achieves stable or improved neurological status Outcome: Ongoing Goal: Achieves maximal functionality and self care Outcome: Ongoing Problem: Respiratory Goal: Achieves optimal ventilation and oxygenation Outcome: Ongoing Goal: Ability to maintain a clear airway will improve Outcome: Ongoing Problem: Cardiovascular Goal: Maintains optimal cardiac output and hemodynamic stability Outcome: Ongoing Goal: Absence of cardiac dysrhythmias or at baseline Outcome: Ongoing Problem: Skin/Tissue Integrity Goal: Skin integrity remains intact Outcome: Ongoing Goal: Incisions, wounds, or drain sites healing without S/S of infection Outcome: Ongoing Goal: Oral mucous membranes remain intact Description: Outcome: Ongoing Problem: Gastrointestinal Goal: Maintains or returns to baseline bowel function Outcome: Ongoing Goal: Maintains adequate nutritional intake Outcome: Ongoing Problem: Genitourinary Goal: Absence of urinary retention Outcome: Ongoing Goal: Urinary catheter remains patent Outcome: Ongoing Problem: Infection Goal: Absence of infection during hospitalization Outcome: Ongoing Goal: Absence of fever/infection during anticipated neutropenic period Outcome: Ongoing Problem: Metabolic/Fluid and Electrolytes Goal: Electrolytes maintained within normal limits Outcome: Ongoing Goal: Hemodynamic stability and optimal renal function maintained Outcome: Ongoing Goal: Glucose maintained within prescribed range Outcome: Ongoing Problem: Skin Integrity Impairment Risk Goal: Mobility will improve Outcome: Ongoing Goal: Understanding of ways to prevent future skin breakdown will improve Outcome: Ongoing Goal: Nutritional status will improve Outcome: Ongoing Goal: Risk for impaired skin integrity will decrease Outcome: Ongoing * Plan of Care - Joey Velasquez RN - 12/05/2023 4:49 PM CDT Goals: Clinical Goals for the Shift: VSS, hemodynamics, OOBTC, wean o2, PT, bolus Summary: Problem: Discharge Planning Goal: Understanding discharge needs will improve Outcome: Ongoing Problem: Lack of Knowledge Goal: Ability to develop a pain control plan will improve Outcome: Ongoing Problem: Medication Goal: Satisfaction with pain management medication regimen will improve Outcome: Ongoing Problem: Sensory Goal: Ability to identify factors that increase pain levels will improve while working to decrease the patient's pain levels Outcome: Ongoing Problem: Coping Goal: Ability to cope will improve Outcome: Ongoing Problem: Health Behavior Goal: Identification of resources available to assist in meeting health care needs will improve Outcome: Ongoing Problem: Fluid Volume Goal: Will regain or maintain balanced intake and output Outcome: Ongoing Problem: Physical Regulation Goal: Ability to re-establish a normal urinary elimination pattern will improve Outcome: Ongoing Problem: Sensory (Pain) Goal: Pain levels will decrease Outcome: Ongoing Problem: Skin Integrity Goal: Wound appearance will improve during the postoperative course Outcome: Ongoing Problem: Neurosensory Goal: Achieves stable or improved neurological status Outcome: Ongoing Goal: Achieves maximal functionality and self care Outcome: Ongoing Problem: Respiratory Goal: Achieves optimal ventilation and oxygenation Outcome: Ongoing Goal: Ability to maintain a clear airway will improve Outcome: Ongoing Problem: Cardiovascular Goal: Maintains optimal cardiac output and hemodynamic stability Outcome: Ongoing Goal: Absence of cardiac dysrhythmias or at baseline Outcome: Ongoing Problem: Skin/Tissue Integrity Goal: Skin integrity remains intact Outcome: Ongoing Goal: Incisions, wounds, or drain sites healing without S/S of infection Outcome: Ongoing Goal: Oral mucous membranes remain intact Description: Outcome: Ongoing Problem: Gastrointestinal Goal: Maintains or returns to baseline bowel function Outcome: Ongoing Goal: Maintains adequate nutritional intake Outcome: Ongoing Problem: Genitourinary Goal: Absence of urinary retention Outcome: Ongoing Goal: Urinary catheter remains patent Outcome: Ongoing Problem: Infection Goal: Absence of infection during hospitalization Outcome: Ongoing Goal: Absence of fever/infection during anticipated neutropenic period Outcome: Ongoing Problem: Metabolic/Fluid and Electrolytes Goal: Electrolytes maintained within normal limits Outcome: Ongoing Goal: Hemodynamic stability and optimal renal function maintained Outcome: Ongoing Goal: Glucose maintained within prescribed range Outcome: Ongoing Problem: Skin Integrity Impairment Risk Goal: Mobility will improve Outcome: Ongoing Goal: Understanding of ways to prevent future skin breakdown will improve Outcome: Ongoing Goal: Nutritional status will improve Outcome: Ongoing Goal: Risk for impaired skin integrity will decrease Outcome: Ongoing * Plan of Care - Juanito Renteria RN - 12/04/2023 7:10 PM CDT Goals: Clinical Goals for the Shift: admit to 4400, VSS, MAP >65, pain mgmt Summary: Problem: Discharge Planning Goal: Understanding discharge needs will improve Outcome: Progressing Problem: Lack of Knowledge Goal: [...] health care needs will improve Outcome: Progressing Problem: Fluid Volume Goal: Will regain or maintain balanced intake and output Outcome: Progressing Problem: Physical Regulation Goal: Ability to re-establish a normal urinary elimination pattern will improve Outcome: Progressing Problem: Sensory (Pain) Goal: Pain levels will decrease Outcome: Progressing Problem: Skin Integrity Goal: Wound appearance will improve during the postoperative course Outcome: Progressing Problem: Neurosensory Goal: Achieves stable or improved neurological status Outcome: Progressing Goal: Achieves maximal functionality and self care Outcome: Progressing Problem: Respiratory Goal: Achieves optimal ventilation and oxygenation Outcome: Progressing Goal: Ability to maintain a clear airway will improve Outcome: Progressing Problem: Cardiovascular Goal: Maintains optimal cardiac output and hemodynamic stability Outcome: Progressing Goal: Absence of cardiac dysrhythmias or at baseline Outcome: Progressing Problem: Skin/Tissue Integrity Goal: Skin integrity remains intact Outcome: Progressing Goal: Incisions, wounds, or drain sites healing without S/S of infection Outcome: Progressing Goal: Oral mucous membranes remain intact Description: Outcome: Progressing Problem: Gastrointestinal Goal: Maintains or returns to baseline bowel function Outcome: Progressing Goal: Maintains adequate nutritional intake Outcome: Progressing Problem: Genitourinary Goal: Absence of urinary retention Outcome: Progressing Goal: Urinary catheter remains patent Outcome: Progressing Problem: Infection Goal: Absence of infection during hospitalization Outcome: Progressing Goal: Absence of fever/infection during anticipated neutropenic period Outcome: Progressing Problem: Metabolic/Fluid and Electrolytes Goal: Electrolytes maintained within normal limits Outcome: Progressing Goal: Hemodynamic stability and optimal renal function maintained Outcome: Progressing Goal: Glucose maintained within prescribed range Outcome: Progressing Problem: Skin Integrity Impairment Risk Goal: Mobility will improve Outcome: Progressing Goal: Understanding of ways to prevent future skin breakdown will improve Outcome: Progressing Goal: Nutritional status will improve Outcome: Progressing Goal: Risk for impaired skin integrity will decrease Outcome: Progressing * Assessment & Plan Note - Herson Read MD - 12/04/2023 5:21 PM CDTAssociated Problem(s): Paroxysmal atrial fibrillation (CMS/HCC) (HCC) Patient with a history of atrial fibrillation on prior device interrogations that presents with AF with RVR and became hypotensive with metoprolol and IV amiodarone that required cardioversion now inSR -Given history of HCM requires anticoagulation. This can be started when safe from per her orthopedic spine team -Continue with amiodarone 400mg BID for 7 days, followed by amiodarone 400mg daily for 7 days and then drop to amiodarone 200mg daily until she follows up with her primary cardiologists (Dr. Talbert). When stable ok to restart her home metoprolol but would not restart her diltiazem -Suspect her elevated troponin is likely secondary to demand ischemia (currently denies any chest pain, shortness of breath or other ischemic symptoms) due to Apical HCM and possible microvascular dysfunction. At this time no indication for further ischemic evaluation * Plan of Care - Skyla Domingo RN - 12/04/2023 12:56 AM CDT Problem: Discharge Planning Goal: Understanding discharge needs will improve Outcome: Ongoing Problem: Lack of Knowledge Goal: Ability to develop a pain control plan will improve Outcome: Ongoing Problem: Medication Goal: Satisfaction with pain management medication regimen will improve Outcome: Ongoing Problem: Sensory Goal: Ability to identify factors that increase pain levels will improve while working to decrease the patient's pain levels Outcome: Ongoing Problem: Coping Goal: Ability to cope will improve Outcome: Ongoing Problem: Health Behavior Goal: Identification of resources available to assist in meeting health care needs will improve Outcome: Ongoing Problem: Fluid Volume Goal: Will regain or maintain balanced intake and output Outcome: Ongoing Problem: Physical Regulation Goal: Ability to re-establish a normal urinary elimination pattern will improve Outcome: Ongoing Problem: Sensory (Pain) Goal: Pain levels will decrease Outcome: Ongoing Problem: Skin Integrity Goal: Wound appearance will improve during the postoperative course Outcome: Ongoing Problem: Neurosensory Goal: Achieves stable or improved neurological status Outcome: Ongoing Goal: Achieves maximal functionality and self care Outcome: Ongoing Problem: Respiratory Goal: Achieves optimal ventilation and oxygenation Outcome: Ongoing Goal: Ability to maintain a clear airway will improve Outcome: Ongoing Problem: Cardiovascular Goal: Maintains optimal cardiac output and hemodynamic stability Outcome: Ongoing Goal: Absence of cardiac dysrhythmias or at baseline Outcome: Ongoing Problem: Skin/Tissue Integrity Goal: Skin integrity remains intact Outcome: Ongoing Goal: Incisions, wounds, or drain sites healing without S/S of infection Outcome: Ongoing Goal: Oral mucous membranes remain intact Description: Outcome: Ongoing Problem: Gastrointestinal Goal: Maintains or returns to baseline bowel function Outcome: Ongoing Goal: Maintains adequate nutritional intake Outcome: Ongoing Problem: Genitourinary Goal: Absence of urinary retention Outcome: Ongoing Goal: Urinary catheter remains patent Outcome: Ongoing Problem: Infection Goal: Absence of infection during hospitalization Outcome: Ongoing Goal: Absence of fever/infection during anticipated neutropenic period Outcome: Ongoing Problem: Metabolic/Fluid and Electrolytes Goal: Electrolytes maintained within normal limits Outcome: Ongoing Goal: Hemodynamic stability and optimal renal function maintained Outcome: Ongoing Goal: Glucose maintained within prescribed range Outcome: Ongoing Problem: Skin Integrity Impairment Risk Goal: Mobility will improve Outcome: Ongoing Goal: Understanding of ways to prevent future skin breakdown will improve Outcome: Ongoing Goal: Nutritional status will improve Outcome: Ongoing Goal: Risk for impaired skin integrity will decrease Outcome: Ongoing Goals: Clinical Goals for the Shift: admit to 4400, VSS, MAP >65, pain mgmt Summary: * Significant Event - Phillip Rodriguez MD - 12/03/2023 10:25 PM CDT Brief ACT Note ACT called for chest pain and tachycardia. On arrival, heart rates 140-160s, wide complex, with bundaloid morphology, concerning for SVT w/ aberrancy, though concern for VT given known apical HCM. Bundle morphology new from prior ECG earlier this date. Of note, similar presentation earlier in the day prompted primary service to start metoprolol tartrate 25mg TID, last received at 20:40. Patient uncomfortable appearing, c/o crushing midsternal chest pain. Denied SOB, dizziness; no diaphoresis noted. STEMI pager activated. Loaded w/ asa 325, SL nitroglycerin administered. Following NTG, pt became severely hypotensive to 50- 80/40s. Patient cool and clammy, slightly somnolent though rousable. Required 400mcg phenylephrine. 500cc LR bolus initiated. BB/CCB deferred d/t severely low pressures. Amio bolus + gtt initiated. Patient remained severely hypotensive with worsening mentation. Administered 1mg lorazepam and 0.5mg dilaudid, emergent DCCV performed. Following cardioversion, HRs brieflyimproved to 70-80s, though rapidly returned to 120-130s, now with a narrower QRS. Levophed infusion initiated to ensure BP stability with travel. Transferred to 4400 SICU for further management. Phillip Rodriguez MD Internal Medicine, PGY-3 12/03/2023 10:35 PM * Significant Event - Osei Kruse MD - 12/03/2023 10:12 PM CDT Briefly cardiology note Called to ACT for Macie Briseno who is a 78 y.o. 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, [place] DC-ICD, AFib RVR with inappropriate ICD shocks with spinal surgery today who developed acute worsening of back pain and wide complex tachycardia up to 160s. Patient received 25mg metoprolol PO, aspirin, SLN, and a fluid bolus prior to my arrival. On my arrival, EKG with wide complex tachycardia that was likely AFib vs AFL with aberrancy. Blood pressures were borderline, so we administered an amiodarone bolus and an infusion. Her hypotension got worse with her SBPs dropping to the 60s requiring emergent cardioversion which briefly converted her into an paced rhythm. She reverted back to an irregular rhythm, but at this point her rates dropped to 110s-120s. She received several pushes of phenylephrine, stabilized to maps in the low 60s, then transported to the 4400 SICU. * Significant Event - Janet Genao MD - 12/03/2023 9:00 PM CDT Significant event Orthopedic Note Called by bedside nurse around 8 30 p.m. for patient having chest pain and noted to be tachycardic and somewhat hypotensive. Patient had just received her oral metoprolol right before I had been called. Patient was on telemetry and was told by the bedside nurse that she had had 1 run of V-tach during the day but it had soft resolved quickly. However this time there was a run of V-tach noted on the telemetry and patient was noted to have new symptoms as well as overall looking more clinically poor being clammy and tachycardic into the 140s. Blood pressure was consistently in the high 80s to low 100 systolic. Immediately after that call I presented to bedside to evaluate the patient. On my examination the patient was endorsing chest pain, was pale, diaphoretic and tachycardic. Patient was endorsing new onset chest pain and overall having some mild back pain. A recycling of the blood pressure noted her blood pressures to be in the 90 systolic with her being persistently tachycardic into the 130s to 150s. I told bedside RN to call an act due to patient's symptomatic tachycardia and her already receiving p.o. metoprolol. Since patient was already somewhat hypotensive I did not feel comfortable giving an IV dose of beta blockade without an acting present. Upon acting presenting a full set of labs were obtained and patient was thoroughly examined and reviewed. Patient was given a bolus, 5 mg IV metoprolol, magnesium, amiodarone bolus and amiodarone infusion. Patient remained tachycardic and hypotensive and was eventually cardioverted emergently on the floor at the decision of the CT ICU fellow. Patient was also given adequate relaxation and analgesics prior to her cardioversion while awake on the floor. Patient did have an improvement in her tachycardia briefly after this, however she has since been trending back upwards with tachycardia into the 120s to 130s. Patient was transferred to the ICU in critical condition with tachycardia into the 120s to 30s, on a levo drip as well as an amiodarone drip. During all these events patient was answering questions appropriately but in short sentences just saying yes and no to her being question. However she did remain lucid during all these events. Signed out the patient thoroughly with the ICU team with the CTICU and act senior resident all present at bedside. My attending Dr. Michelle was made aware of the events and also came to bedside shortly after to examined the patient. Patient was given a full-dose aspirin due to concern for STEMI with new EKG changes. However she never received any systemic anticoagulation. With the patient being in AFib and possibly a flutter anticoagulation would be helpful, however she is only 36 hours out from her revision posterior spinal fusion. If it is felt that it is necessary by the ICU team to start anticoagulation would be okay forsystemic anticoagulation as long as no boluses were given. Please alert ortho team prior to starting any anti coagulation. Cammy Genao M.D ([place]eline). Orthopaedic Surgery Resident, PGY-1 For questions please reach out to: Abhijeet 7:30p-6:30a (Night Floor Resident): [phone] Consult Resident: [phone] Specific Resident: [email or web address] to page/call appropriate Orthopaedic Surgery Team/Resident Call Schedule: PARAMJIT for [facility] Orthopaedic Surgery (pw: Annetta [facility]) For ortho primary adult patients, Mon - Fri 6a-6p: Call [phone] nurses station for PA/FIELD SERVICE REP ([phone]) For ortho primary pediatric patients, Mon - Thu 6a-6p: Call 10th floor nurses station for FIELD SERVICE REP * Plan of Care - Michelle Johnston RN - 12/03/2023 10:47 AM CDT Problem: Lack of Knowledge Goal: Ability to develop a pain control plan will improve Outcome: Progressing Flowsheets (Taken 12/03/2023 1046) Ability to develop a pain control plan will improve: Teach information regarding pain management Problem: Fluid Volume Goal: Will regain or maintain balanced intake and output Outcome: Progressing Problem: Skin/Tissue Integrity Goal: Skin integrity remains intact Outcome: Progressing Problem: Infection Goal: Absence of infection during hospitalization Outcome: Progressing * Plan of Care - Latisha Robles RN - 12/03/2023 5:05 AM CDT Goals: Clinical Goals for the Shift: admit [place] [address], monitor VS and neuro exam, promote safety and comfort, pain management * Op Note - Jeremy Michelle MD - 12/02/2023 11:21 AM CDT Operative Report Surgeon Jeremy Michelle MD PhD Filter Plant Operator(s) Isabelle Deleon MD Anesthesia General endotracheal. Preoperative/Postop Diagnosis Pseudoarthrosis Adjacent segment disease (ASD) Prior spinal surgery, instrumented L1-4 Procedure(s) [id number] PSIF with revision Posterior column osteotomy, T12/L1 Posterior column osteotomy, L1/2 Removal of hardware, L1 screws bilaterally Correction of kyphotic deformity via osteotomies and pro-axis bed Use and interpretation of O-arm Use and interpretation flouro Use and interpretation, x-ray Indications for Surgery This is a pleasant 78-year-old female well known to me. She is undergone previous spinal surgeries in years past most recently with me 4 years ago. 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 After a long discussion about her alignment goals she was indicated for addressing the adjacent segment by extending up to T10 and extending down to the pelvis. Risks and benefits were extensively reviewed at length. The indications for the procedure, the potential risks, expected benefits, and alternatives to surgery were discussed with the patient and the patient gave her informed consent to proceed. Operative Findings / Description The operative site was identified and marked preoperatively. The patient was then brought back to the operating room supine on the hospital stretcher. There was a delay due to the company of her pacemaker not showing up on time to do their part. They were informed of the surgical time and what was needed in preop long before and agreed to be here earlier but they were late causing the surgery to be delayed. She was administered a general anesthetic and oral endotracheal intubation was performedby the anesthesiology service team. Additional intravenous access was obtained. Preoperative intravenous antibiotics were administered for infection prophylaxis. Spinal cord monitoring needles were placed if neuro-monitoring was being used. A Bedoya catheter wasplaced if not already in place. [place] tongs were not used due to her cochlear implant. Instead we used a prone view pillow.The patient was then turned prone onto the ProAxis table. All bony prominences were properly paddedand the patient's abdomen and axillae were allowed to hang free. The patient's head and neck were supported using the prone view pillow. Once were satisfied with the patient's position on the operating table, the patient was secured to the table. The posterior spine was then prepped and draped in the usual sterile fashion using alcohol and DuraPrep x 2. Fluoroscopy was used to localize our incision and to check our level during surgery. A time out was performed where name of the patient, procedure, antibiotics, and plan were all reviewed. Any pertinent images were up in the room and confirmed as the correct patient. All members of the team introduced themselves and their role in the operating room. We then began by making an incision. This was carried down to the posterior spine exposing from T10to the pelvis. Care was taken not to leave space behind. Once we exposed from T10 to the pelvis we then proceeded in placing bilateral pedicle screws at T10-T11 and T12. Care was taken not to disrupt the posterior tension band. After this was done we turned our attention to the pelvis. We exposed in placed S2 alar iliac screws bilaterally. Because of her unique anatomy we did this with the help of fluoroscopy we are able to place these in the small bone cord or that we had. This was done uneventfully. Next we turned our attention to the osteotomies. Due to her kyphotic deformity we remove d the pedicle screws at L1 bilaterally. We debrided the holes and packed them with bone graft. Theydid not appear to have any sort of infection but we sent cultures nonetheless. We removed the rods bilaterally. We then used the BoneScalpel curettes Kerrison rongeur pituitary to remove the bilateral facets at T12-L1 and L1-L2. We then proceeded to remove the inner spinous ligament and the ligamentum at T12-L1 as well as the inferior aspect of T12 and the superior aspect of L1 bone. This completed our posterior column osteotomy T12-L1 and L1- L2. Once we did this we then proceeded to bend the ProAxis bed to increase her lordosis. We reduced the kyphosis from T10-L2 and induced as much lordosis as we could closing down the posterior elements of the bone. We performed an or been to check our placement of instrumentation. We further adjusted the bed and removed more bone after this. Most notably we were able to get much more movement at T12-L1 that we were at L1-L2. Satisfied with our lordosis we placed rods we got final AP and lateral x-rays. We had excellent correction of the kyphosis through the proximal levels and had induced a little bit of lordosis at that area which was the goal. Satisfied with our alignment we final tightened our set screws and then decorticated from T10 downto the pelvis and placed bone graft from T10 to the pelvis bilaterally and centrally where there was bone. The defect from the osteotomy was closed down that both levels and any exposed dura was covered with Tachosil to keep graft out of the canal. Copious irrigation was used throughout the case today. Once we final tightened our set screws and placed our bone graft we set about closing. A deep drain was left behind. We closed with Vicryl and Stratafix. In the typical layered fashion. The finallayer was closed with a subcu Stratafix and Dermabond. Sterile dressing was placed. 2 g of vancomycin were left behind in the wound. All counts were correct there were no complications. The patient was removed from the table uneventfully and awoke from anesthesia without difficulty and was extubated. She was taken to the recovery unit and I updated the family. Neuromonitoring data remained stable during the procedure. I was scrubbed and present the entire procedure through closure of the skin. Specimens L1 pedical curettage sent for micro / cx Counts Correct. Estimated Blood Loss 350cc Complications None Anticoagulation Plan Starting POD2 Condition on transfer out of OR Stable. Stable to floor ADAT UOOB with PT Upright scoli xrays when able Fu cx Jeremy Michelle MD PhD Attending Physician [facility] Division of Spine Surgery c. p. [phone] Implant Information Implant Name Type Inv. Item Serial No. [employer] Operator Lot No. [id number] No. Used Action [employer] Crushed Chip Frozen Graft 90ml Bone Cancellous [id number] - [id number] [employer] CrushedChip Frozen Graft 90ml Bone Cancellous [id number] Allosource [id number] N/A 1 Implanted DEPUY SYNTHES SPINE Substitute Bone Graft Fibergraft Large Bioactive Glass Putty [id number] - [id number] DEPUY SYNTHES SPINE Substitute Bone Graft Fibergraft Large Bioactive Glass Putty [id number] DepuySynthes Spine N/A 1 Implanted [employer] Kit Graft Bone Sponge Xlg Infuse 8cc Granules [id number] - [id number] [employer] KitGraft Bone Sponge Xlg Infuse 8cc Granules [id number] Medtronic Inc [id number] N/A 1 Implanted [employer] Kit Graft Bone Sponge Xlg Infuse 8cc Granules [id number] - [id number] [employer] KitGraft Bone Sponge Xlg Infuse 8cc Granules [id number] Med[employer] [id number] N/A 1 Implanted [employer] Kit Graft Bone Sponge Xlg Infuse 8cc Granules [id number] - [id number] [employer] KitGraft Bone Sponge Xlg Infuse 8cc Granules [id number] [employer] [id number] N/A 1 Implanted [employer]OURCE Crushed Chip Frozen Graft 60ml Bone Cancellous [id number] - [id number] [employer] CrushedChip Frozen Graft 60ml Bone Cancellous [id number] Allosource [id number] N/A 1 Implanted DEPUY SYNTHES SPINE Expedium 5mm 45mm Fix Spine Cortical Screw Bone Titanium 5.5mm [id number] - [id number] DEPUY SYNTHES SPINE Expedium 5mm 45mm Fix Spine Cortical Screw Bone Titanium 5.5mm [id number] Synthes Spine N/A 2 Implanted DEPUY SYNTHES SPINE Expedium 5.5mm 45mm Polyaxial Spine Screw Bone Titanium 5.5mm El [id number] - [id number] DEPUY SYNTHES SPINE Expedium 5.5mm 45mm Polyaxial Spine Screw Bone Titanium 5.5mm El [id number] Depuy Synthes Spine N/A 1 Implanted DEPUY SYNTHES SPINE Expedium 5.5mm 50mm Polyaxial Spine Screw Bone Titanium 5.5mm El [id number] - [id number] DEPUY SYNTHES SPINE Expedium 5.5mm 50mm Polyaxial Spine Screw Bone Titanium 5.5mm El [id number] Depuy Synthes Spine N/A 3 Implanted DEPUY SYNTHES SPINE Expedium 1 Inner Monoaxial Spine Screw Set Titanium [id number] - [id number] DEPUY SYNTHES SPINE Expedium 1 Inner Monoaxial Spine Screw Set Titanium [id number] Depuy Synthes Spine N/A 14 Implanted DEPUY SYNTHES SPINE Expedium 5.5mm 480mm El Spinal Titanium Nonsterile [id number] - [id number] DEPUY SYNTHES SPINE Expedium 5.5mm 480mm El Spinal Titanium Nonsterile [id number] Depuy Synthes Spine N/A 2 Implanted DEPUY SYNTHES SPINE Substitute Bone Graft Fibergraft Large Bioactive Glass Putty [id number] - [id number] DEPUY SYNTHES SPINE Substitute Bone Graft Fibergraft Large Bioactive Glass Putty [id number] DepuySynthes Spine N/A 3 Implanted DEPUY SYNTHES SPINE Screw Viper 8x65mm [id number] - [id number] DEPUY SYNTHES SPINE Screw Viper 8x65mm [id number] Depuy Synthes Spine N/A 2 Implanted Operative Report dictated by Jeremy Michelle MD PhD on 12/02/23 using Fluency Direct. Paper Bag Maker variances may occur. * Brief Op Note - Isabelle Deleon MD - 12/02/2023 11:21 AM CDT Operative Progress Note Surgical Team: Surgeons and Role: * Jeremy Michelle MD - Primary * Isabelle Deleon MD - Resident - Observing Anesthesiologist: Steve Hedrick MD PROFESSOR OF MARKETING: Heather Sam CRNA; Belén Casarez CRNA; Dalia Rod CRNA Student Nurse Tire Installer: Tee Carver Construction Administrative Assistant: Ashley Knox RN; Wendi Santoro RN Construction Administrative Assistant Relief: Tabby Cuadra RN; Lea Mendoza RN Scrub Relief: Bryant Espino RN; Madai Vasques ST Scrub: Rex Starks ST Wood Gouger: Khalif Diez MT Filter Plant Operator: Latisha Retana NP NURSE PRACTIONER PRIVATE: Fay Leyva NP DATE OF SURGERY : 12/02/2023 Preoperative Diagnosis: Pre-op Diagnosis * Fusion of spine of lumbar region [M43.26] * Pseudoarthrosis of lumbar spine [S32.009K] Postoperative Diagnosis: Post-op Diagnosis * Fusion of spine of lumbar region [M43.26] * Pseudoarthrosis of lumbar spine [S32.009K] Procedure(s): Procedure(s) (LRB): FUSION DECOMPRESSION LAMINECTOMY WITH INSTRUMENTATION - FusionStorm EXPEDIUM--Posterior spinal instrumented fusion revision [id number] with posterior column osteotomies T12/L1 and L1/2, exploration of fusion, removal of hardware, autograft, allograft, bone morphogentic protein, spinal cord monitoring. (N/A) REMOVAL HARDWARE SPINE (N/A) OSTEOTOMY POSTERIOR SPINAL (N/A) SPINAL CORD MONITORING (N/A) BONE GRAFT WITH BONE MORPHOGENIC PROTEIN (N/A) Operative Findings: Pseudoarthrosis Loss of lumbar lordosis Estimated Blood Loss: 350 mL Intraoperative Fluids: Per anesthesia Specimens: No specimen collected in procedure Implants: Implant Name Type Inv. Item Serial No. [employer] Operator Lot No. [id number] No. Used Action [employer]OURCE Crushed Chip Frozen Graft 90ml Bone Cancellous [id number] - [id number] [employer] CrushedChip Frozen Graft 90ml Bone Cancellous [id number] All[employer]ource [id number] N/A 1 Implanted DEPUY SYNTHES SPINE Substitute Bone Graft Fibergraft Large Bioactive Glass Putty [id number] - [id number] DEPUY SYNTHES SPINE Substitute Bone Graft Fibergraft Large Bioactive Glass Putty [id number] [facility] Spine N/A 1 Implanted [employer] Kit Graft Bone Sponge Xlg Infuse 8cc Granules [id number] - [id number] [employer] KitGraft Bone Sponge Xlg Infuse 8cc Granules [id number] Medtronic Inc [id number] N/A 1 Implanted [employer] Kit Graft Bone Sponge Xlg Infuse 8cc Granules [id number] - [id number] [employer] KitGraft Bone Sponge Xlg Infuse 8cc Granules [id number] Medtronic Inc [id number] N/A 1 Implanted [employer] Kit Graft Bone Sponge Xlg Infuse 8cc Granules [id number] - [id number] [employer] KitGraft Bone Sponge Xlg Infuse 8cc Granules [id number] Medtronic SeekPanda [id number] N/A 1 Implanted [employer]OSOURCE Crushed Chip Frozen Graft 60ml Bone Cancellous [id number] - [id number] [employer]OURCE CrushedChip Frozen Graft 60ml Bone Cancellous [id number] Allosource [id number] N/A 1 Implanted DEPUY SYNTHES SPINE Expedium 5mm 45mm Fix Spine Cortical Screw Bone Titanium 5.5mm [id number] - [id number] DEPUY SYNTHES SPINE Expedium 5mm 45mm Fix Spine Cortical Screw Bone Titanium 5.5mm [id number] LinkStorm Spine N/A 2 Implanted DEPUY SYNTHES SPINE Expedium 5.5mm 45mm Polyaxial Spine Screw Bone Titanium 5.5mm El [id number] - [id number] DEPUY SYNTHES SPINE Expedium 5.5mm 45mm Polyaxial Spine Screw Bone Titanium 5.5mm El [id number] Depuy Synthes Spine N/A 1 Implanted DEPUY SYNTHES SPINE Expedium 5.5mm 50mm Polyaxial Spine Screw Bone Titanium 5.5mm El [id number] - [id number] DEPUY SYNTHES SPINE Expedium 5.5mm 50mm Polyaxial Spine Screw Bone Titanium 5.5mm El [id number] Depuy Synthes Spine N/A 3 Implanted DEPUY SYNTHES SPINE Expedium 1 Inner Monoaxial Spine Screw Set Titanium [id number] - [id number] DEPUY SYNTHES SPINE Expedium 1 Inner Monoaxial Spine Screw Set Titanium [id number] Depuy Synthes Spine N/A 14 Implanted DEPUY SYNTHES SPINE Expedium 5.5mm 480mm El Spinal Titanium Nonsterile [id number] - [id number] DEPUY SYNTHES SPINE Expedium 5.5mm 480mm El Spinal Titanium Nonsterile [id number] Depuy Synthes Spine N/A 2 Implanted DEPUY SYNTHES SPINE Substitute Bone Graft Fibergraft Large Bioactive Glass Putty [id number] - [id number] DEPUY SYNTHES SPINE Substitute Bone Graft Fibergraft Large Bioactive Glass Putty [id number] DepuySynthes Spine N/A 3 Implanted DEPUY SYNTHES SPINE Screw Viper 8x65mm [id number] - [id number] DEPUY SYNTHES SPINE Screw Viper 8x65mm [id number] Depuy Synthes Spine N/A 2 Implanted Blood/Blood Products Transfused: 0 mls Complications: None Condition on Discharge from the operating room was stable Isabelle Deleon MD Date: 12/02/2023 Time: 6:38 PM TEACHING ATTESTATION : I was present and directly participated in the entire procedure (including opening and closing). Cosigned by Jeremy Michelle MD at 12/05/2023 9:49 AM CDT documented in this encounter Plan of Treatment Pending Results Name Type Priority Associated Diagnoses Date /Time Magnesium Lab Routine 12/03/2023 9:0 5 PM CDT Scheduled Orders Name Type Priority Associated Diagnoses Orde r Schedule Magnesium Lab Routine Once for 1 Occ urrences starting 12/03/2023 until 12/03/2023 ECG 12 lead ECG Routine As needed unt il discontinued starting 12/03/2023, 4 completed documented as of this encounter Procedures Procedure Name Priority Date/Time Associated Diagnosis Comments XR SCOLIOSIS AP LAT IP Routine 12/08/2023 1:24 PM CDT EGFR Routine 12/07/2023 8:33 PM CDT CBC WITHOUT DIFFERENTIAL Routine 12/07/2023 8:33 PM CDT PHOSPHORUS Routine 12/07/2023 8:33 PM CDT MAGNESIUM Routine 12/07/2023 8:33 PM CDT BASIC METABOLIC PANEL Routine 12/07/2023 8:33 PM CDT CRITICAL CARE Routine 12/07/2023 6:35 AM CDT Atrial fibrillation with RVR (CMS/HCC) (HCC) CBC WITHOUT DIFFERENTIAL Timed 12/06/2023 10:24 PM CDT EGFR Routine 12/06/2023 8:51 PM CDT CALCIUM, IONIZED Routine 12/06/2023 8:51 PM CDT PHOSPHORUS Routine 12/06/2023 8:51 PM CDT MAGNESIUM Routine 12/06/2023 8:51 PM CDT BASIC METABOLIC PANEL Routine 12/06/2023 8:51 PM CDT CRITICAL CARE Routine 12/06/2023 6:41 PM CDT Atrial fibrillation with RVR (CMS/HCC) (HCC) INFECTION PREVENTION DIAZ AURIS PCR, SURVEILLANCE Routine 12/06/2023 6:15 PM CDT CP-CRE CULTURE, SURVEILLANCE Routine 12/06/2023 6:15 PM CDT CRITICAL CARE Routine 12/06/2023 6:18 AM CDT Atrial fibrillation with RVR (CMS/HCC) (HCC) XR ABDOMEN AP 1 VIEW IP Routine 12/05/2023 9:20 PM CDT EGFR Timed 12/05/2023 7:37 PM CDT CALCIUM, IONIZED Timed 12/05/2023 7:37 PM CDT LACTATE, WHOLE BLOOD Timed 12/05/2023 7:37 PM CDT CBC WITHOUT DIFFERENTIAL Timed 12/05/2023 7:37 PM CDT PHOSPHORUS Timed 12/05/2023 7:37 PM CDT MAGNESIUM Timed 12/05/2023 7:37 PM CDT BASIC METABOLIC PANEL Timed 12/05/2023 7:37 PM CDT CRITICAL CARE Routine 12/05/2023 7:00 PM CDT Atrial fibrillation with RVR (CMS/HCC) (HCC) CRITICAL CARE Routine 12/05/2023 7:12 AM CDT Atrial fibrillation with RVR (CMS/HCC) (HCC) EGFR Timed 12/05/2023 5:54 AM CDT CBC WITHOUT DIFFERENTIAL Timed 12/05/2023 5:54 AM CDT PHOSPHORUS Timed 12/05/2023 5:54 AM CDT MAGNESIUM Timed 12/05/2023 5:54 AM CDT BASIC METABOLIC PANEL Timed 12/05/2023 5:54 AM CDT EGFR Routine 12/04/2023 9:28 PM CDT CBC WITHOUT DIFFERENTIAL Routine 12/04/2023 9:28 PM CDT PHOSPHORUS Routine 12/04/2023 9:28 PM CDT MAGNESIUM Routine 12/04/2023 9:28 PM CDT COMPREHENSIVE METABOLIC PANEL Routine 12/04/2023 9:28 PM CDT ECG 12-LEAD Routine 12/04/2023 9:17 PM CDT CRITICAL CARE Routine 12/04/2023 7:41 PM CDT Atrial fibrillation with RVR (CMS/HCC) (HCC) POCT GLUCOSE DEVICE Routine 12/04/2023 7:28 PM CDT TROPONIN I HIGH-SENSITIVITY 6-HOUR Timed 12/04/2023 5:57 PM CDT TRANSTHORACIC ECHO (TTE) COMPLETE W DOPPLER/CF W CONTRAST ED Urgent/IP Urgent 12/04/2023 3:48 PM CDT TROPONIN I HIGH-SENSITIVITY 4-HOUR Timed 12/04/2023 3:44 PM CDT POCT GLUCOSE DEVICE Routine 12/04/2023 3:40 PM CDT PRO B-TYPE NATRIURETIC PEPTIDE Timed 12/04/2023 1:45 PM CDT TROPONIN I HIGH-SENSITIVITY 2-HOUR Timed 12/04/2023 1:34 PM CDT POCT GLUCOSE DEVICE Routine 12/04/2023 11:55 AM CDT TROPONIN I HIGH-SENSITIVITY SERIES (BASELINE, 2HR, 4HR, 6HR) Routine 12/04/2023 11:33 AM CDT CRITICAL RESULT CALLBACK CARDIO CHEM Routine 12/04/2023 11:33 AM CDT EGFR Routine 12/04/2023 11:33 AM CDT PHOSPHORUS Routine 12/04/2023 11:33 AM CDT MAGNESIUM Routine 12/04/2023 11:33 AM CDT LIPID PANEL Routine 12/04/2023 11:33 AM CDT BASIC METABOLIC PANEL Routine 12/04/2023 11:33 AM CDT XR CHEST 1 VIEW ED Urgent/IP Urgent 12/04/2023 10:23 AM CDT POCT GLUCOSE DEVICE Routine 12/04/2023 7:09 AM CDT CRITICAL CARE Routine 12/04/2023 6:53 AM CDT Atrial fibrillation with RVR (CMS/HCC) (HCC) AK ARTL CATHJ/CANNULJ MNTR/TRANSFUSION SPX PRQ Routine 12/04/2023 3:30 AM CDT Pseudoarthrosis of lumbar spine Fusion of spine of lumbar region Paroxysmal atrial fibrillation (CMS/HCC) (HCC) Apical variant hypertrophic cardiomyopathy (HCC) POCT GLUCOSE DEVICE Routine 12/04/2023 3:26 AM CDT POCT GLUCOSE DEVICE Routine 12/03/2023 11:18 PM CDT ECG 12-LEAD Routine 12/03/2023 11:04 PM CDT LACTATE STAT 12/03/2023 10:59 PM CDT BLOOD GAS, ARTERIAL STAT 12/03/2023 10:59 PM CDT POC BLOOD GAS AND CHEMISTRIES, ARTERIAL Routine 12/03/2023 10:46 PM CDT ECG 12-LEAD STAT 12/03/2023 10:40 PM CDT CRITICAL CARE Routine 12/03/2023 10:19 PM CDT CALCIUM, IONIZED STAT 12/03/2023 9:09 PM CDT TROPONIN I HIGH-SENSITIVITY STAT 12/03/2023 9:07 PM CDT DIFFERENTIAL AUTO STAT 12/03/2023 9:07 PM CDT CBC WITH AUTO DIFFERENTIAL STAT 12/03/2023 9:07 PM CDT ARTERIAL BLOOD GAS W/LACTATE Routine 12/03/2023 9:06 PM CDT EGFR Routine 12/03/2023 9:05 PM CDT MAGNESIUM Routine 12/03/2023 9:05 PM CDT BILIRUBIN, DIRECT Routine 12/03/2023 9:05 PM CDT COMPREHENSIVE METABOLIC PANEL Routine 12/03/2023 9:05 PM CDT ECG 12-LEAD Routine 12/03/2023 8:04 PM CDT ECG 12-LEAD Routine 12/03/2023 7:50 PM CDT PHOSPHORUS Timed 12/03/2023 3:08 PM CDT MAGNESIUM Timed 12/03/2023 3:08 PM CDT ECG 12-LEAD Routine 12/03/2023 2:16 PM CDT EGFR Routine 12/03/2023 3:53 AM CDT APTT Routine 12/03/2023 3:53 AM CDT PROTIME-INR Routine 12/03/2023 3:53 AM CDT CBC WITHOUT DIFFERENTIAL Routine 12/03/2023 3:53 AM CDT COMPREHENSIVE METABOLIC PANEL Routine 12/03/2023 3:53 AM CDT EGFR STAT 12/02/2023 6:26 PM CDT APTT STAT 12/02/2023 6:26 PM CDT PROTIME-INR STAT 12/02/2023 6:26 PM CDT CBC WITHOUT DIFFERENTIAL STAT 12/02/2023 6:26 PM CDT BASIC METABOLIC PANEL STAT 12/02/2023 6:26 PM CDT POC BLOOD GAS AND CHEMISTRIES, ARTERIAL Routine 12/02/2023 4:29 PM CDT XR SCOLIOSIS AP LAT IP Routine 12/02/2023 4:20 PM CDT FL FLUOROSCOPY < 1 HOUR IP Routine 12/02/2023 3:02 PM CDT TISSUE AEROBIC AND ANAEROBIC CULTURE AND GRAM STAIN Routine 12/02/2023 2:07 PM CDT POC BLOOD GAS AND CHEMISTRIES, ARTERIAL Routine 12/02/2023 12:52 PM CDT BONE GRAFT WITH BONE MORPHOGENIC PROTEIN 12/02/2023 9:09 AM CDT Fusion 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 Case Notes 11/12@1626- Per Cyndie via phone call reschedule to 12/01[facility] Special Needs Cut to close:300min,#20 bone scalpel, SCM, Fluoroscopy, O-arm, TXA, PROAXIS, GW, auto/allograft chips, fibergraft, 2 lrg unopened BMP kit, DePuy Expedium, Bone Stimulator post op,need to send pathology/micro see comments SPINAL CORD MONITORING 12/02/2023 9:09 AM CDT Fusion 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 Case Notes 11/12@1626- Per Cyndie via phone call reschedule to 12/01-[facility] Special Needs Cut to close:300min,#20 bone scalpel, SCM, Fluoroscopy, O-arm, TXA, PROAXIS, GW, auto/allograft chips, fibergraft, 2 lrg unopened BMP kit, DePuy Expedium, Bone Stimulator post op,need to send pathology/micro see comments OSTEOTOMY POSTERIOR SPINAL 12/02/2023 9:09 AM CDT Fusion 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 Case Notes 11/12@1626- Michael Agee via phone call reschedule to 12/01[facility] Special Needs Cut to close:300min,#20 bone scalpel, SCM, Fluoroscopy, O-arm, TXA, PROAXIS, GW, auto/allograft chips, fibergraft, 2 lrg unopened BMP kit, DePuy Expedium, Bone Stimulator post op,need to send pathology/micro see comments REMOVAL HARDWARE SPINE 12/02/2023 9:09 AM CDT Fusion 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 Case Notes 11/12@1626- Michael Agee via phone call reschedule to 12/01-[facility] Special Needs Cut to close:300min,#20 bone scalpel, SCM, Fluoroscopy, O-arm, TXA, PROAXIS, GW, auto/allograft chips, fibergraft, 2 lrg unopened BMP kit, DePuy Expedium, Bone Stimulator post op,need to send pathology/micro see comments FUSION DECOMPRESSION LAMINECTOMY WITH INSTRUMENTATION - DEPUY EXPEDIUM 12/02/2023 9:09 AM CDT Fusion 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 Case Notes 11/12@1626- Michael Agee via phone call reschedule to 12/01[facility] Special Needs Cut to close:300min,#20 bone scalpel, SCM, Fluoroscopy, O-arm, TXA, PROAXIS, GW, auto/allograft chips, fibergraft, 2 lrg unopened BMP kit, DePuy Expedium, Bone Stimulator post op,need to send pathology/micro see comments TYPE AND SCREEN Timed 12/02/2023 8:24 AM CDT documented in this encounter Results * XR Scoliosis Ap and Lateral (12/08/2023 1:24 PM CDT) Anatomical Region Laterality Modality Spine N/A Computed Radiogr aphy 12/08/2023 2:09 PM CDT Impressions 12/08/2023 5:19 PM CDT Posterior instrumented fusion from T8 to the pelvis. Mild sagittal imbalance but otherwise no residual scoliosis. Dictated by: Jack Singh MD The radiology attending physician has personally reviewed this study, and had reviewed and/or edited this written report and agrees with it. Electronically signed by: Greg Gonzalez MD Narrative 12/08/2023 5:19 PM CDT EXAMINATION: XR SCOLIOSIS AP AND LATERAL HISTORY: Status post revised posterior spinal fusion. COMPARISON: 12/02/2023. FINDINGS: Standing AP and lateral views of the spine are submitted for evaluation. ??There are changes of a posterior instrumented fusion from T10 to the sacrum with bilateral sacroiliac screw fixation. ??The hardware is intact. ??There is no residual scoliosis. ??There is mild anterior sagittal imbalance. ??No coronal imbalance. ??No pelvic tilt. Bilateral hip arthroplasties and a left subclavian approach pacemaker are noted. Procedure Note Gerg Gonzalez MD - 12/08/2023 EXAMINATION: XR SCOLIOSIS AP AND LATERAL HISTORY: Status post revised posterior spinal fusion. COMPARISON: 12/02/2023. FINDINGS: Standing AP and lateral views of the spine are submitted for evaluation. There are changes of a posterior instrumented fusion from T10 to the sacrum with bilateral sacroiliac screw fixation. The hardware is intact. There is no residual scoliosis. There is mild anterior sagittal imbalance. No coronal imbalance. No pelvic tilt. Bilateral hip arthroplasties and a left subclavian approach pacemaker are noted. IMPRESSION: Posterior instrumented fusion from T8 to the pelvis. Mild sagittal imbalance but otherwise no residual scoliosis. Dictated by: Jack Singh MD The radiology attending physician has personally reviewed this study, and had reviewed and/or edited this written report and agrees with it. Electronically signed by: Greg Gonzalez MD us Jeremy Michelle MD IMG XR PROCEDURES Fi nal Result * eGFR (12/07/2023 8:33 PM CDT) eGFR >90 >=60 mL/min/1. 73 m2 Comment: Interpretive Data [...] interpretive data was last reviewed 2021. Blood 12/07/2023 8:33 PM CDT 12/07/2023 8:54 PM CDT Sydnee Collier NP LAB BLOOD ORDERABLES F inal Result Performing Organization Address [facility] Co de Phone Number [facility] [employer] [place] [place] [address] * Phosphorus (12/07/2023 8:33 PM CDT) Pathologist [facility] Phosphorus, pl 3.0 2.3 - 4.5 mg/dL Blood 12/07/2023 8:33 PM CDT 12/07/2023 8:54 PM CDT Sydnee Collier NP LAB BLOOD ORDERABLES F inal Result Performing Organization Address [facility] Co de Phone Number [facility] [employer] [place] [place] [address] * Magnesium (12/07/2023 8:33 PM CDT) [facility] Magnesium 2.0 1.4 - 2.5 mg/dL Blood 12/07/2023 8:33 PM CDT 12/07/2023 8:54 PM CDT Sydnee Collier FIELD SERVICE REP LAB BLOOD ORDERABLES F inal Result [facility] Department [place] [employer] [place] [address] * (ABNORMAL) CBC without differential (12/07/2023 8:33 PM CDT) [facility] WBC 8.9 3.8 - 9.9 K/cumm Hgb 9.1(L) 11.9 - 15.5 g/dL [facility] Hct 26.9(L) 35.6 - 45.5 % [facility] Plt 272 150 - 400 K/cumm [facility] MPV 9.8 9.1 - 12.3 fL [facility] RBC 3.07(L) 3.90 - 5.20 M/cumm [facility] MCV 87.6 81.3 - 96.4 fL [facility] MCH 29.6 27.1 - 33.3 pg [facility] MCHC 33.8 32.3 - 35.7 g/dL [facility] RDW CV 15.3(H) 11.1 - 14.9 % [facility] RDW SD 48.7(H) 35.7 - 48.1 fL [facility] NRBC abs 0.00 0.00 - 0.01 K/cumm [facility] Blood 12/07/2023 8:33 PM CDT 12/07/2023 8:54 PM CDT Sydnee Collier FIELD SERVICE REP LAB BLOOD ORDERABLES F inal Result [facility] [place] [address] * (ABNORMAL) Basic metabolic panel (12/07/2023 8:33 PM CDT) Sodium 136 135 - 145 mmol/L Potassium, pl 4.2 3.3 - 4.9 mmol/L [facility] Chloride 102 97 - 110 mmol/L [facility] CO2 27 22 - 32 mmol/L [facility] Anion gap 7 2 - 15 mmol/L [facility] BUN 7 6 - 25 mg/dL [facility] Creatinine 0.63 0.60 - 1.10 mg/dL [facility] Glucose 98 70 - 199 mg/dL [facility] Comment: Interpretive Data Fasting glucose >/= [...] interpretive data was last revised 2022. Calcium 8.2(L) 8.5 - 10.3 mg/dL [facility] Blood 12/07/2023 8:33 PM CDT 12/07/2023 8:54 PM CDT Sydnee Collier NP LAB BLOOD ORDERABLES F inal Result [facility] [place] [address] * Critical Care (12/07/2023 6:35 AM CDT) Narrative Rachel Colorado MD - 12/07/2023 6:35 AM CDT Sydnee Collier NP ? 12/07/2023 ??5:24 PM Critical Care Performed by: Sydnee Collier NP Authorized by: Sydnee Collier NP ?? CRITICAL CARE: ??Team: ??SICU BLUE ??Shift: ??AM ??Level of Billing: ??Subsequent Hospital Visit Level 3 ??My time spent with this patient was 60 minutes: Critical Provider Statement: I have seen and examined the patient on this day of service. I have reviewed and confirmed the history, physical exam, laboratory, and radiographic data as documented in the ICU note. I have reviewed and discussed my treatment plan with the patient's team and other medical/lead consultant staff. This time was in addition to and separate from care provided by other practitioners on this day of service. ? I spent time reviewing and interpreting data from bedside monitors, laboratory results, and imaging and I spent time documenting in the medical record us Sydnee Collier NP IN CLINIC/BEDSIDE GAIL AYERS Final Result * (ABNORMAL) CBC without differential (12/06/2023 10:24 PM CDT) WBC 6.9 3.8 - 9.9 K/cumm Hgb 8.7(L) 11.9 - 15.5 g/dL [facility] Hct 25.8(L) 35.6 - 45.5 % [facility] Plt 208 150 - 400 K/cumm [facility] MPV 10.1 9.1 - 12.3 fL [facility] RBC 2.92(L) 3.90 - 5.20 M/cumm [facility] MCV 88.4 81.3 - 96.4 fL [facility] MCH 29.8 27.1 - 33.3 pg [facility] MCHC 33.7 32.3 - 35.7 g/dL [facility] RDW CV 15.3(H) 11.1 - 14.9 % [facility] RDW SD 49.3(H) 35.7 - 48.1 fL [facility] NRBC abs 0.00 0.00 - 0.01 K/cumm [facility] Blood 12/06/2023 10:2 4 PM CDT 12/06/2023 10:41 PM CDT us Chinyere Abreu NP LAB BLOOD ORDERABLES Final Result KATIA NIEVES [facility] [place] [address] * eGFR (12/06/2023 8:51 PM CDT) Pathologist [facility] eGFR >90 >=60 mL/min/1. 73 m2 Comment: Interpretive Data [...] interpretive data was last reviewed 2021. Blood 12/06/2023 8:51 PM CDT 12/06/2023 9:24 PM CDT us Rika Solano FIELD SERVICE REP LAB BLOOD ORDERABLES Final Result Performing Organization Address [facility] Co de Phone Number KATIA NIEVES [facility] Department [place] [address] * (ABNORMAL) Calcium, ionized (12/06/2023 8:51 PM CDT) Pathologist [facility] Calcium, Ionized 4.37(L) 4.50 - 5.10 mg/dL Blood 12/06/2023 8:51 PM CDT 12/06/2023 9:07 PM CDT Rika Solano FIELD SERVICE REP LAB BLOOD ORDERABLES Final Result Performing Organization Address [facility] Co de Phone Number [facility] [place] [address] * Phosphorus (12/06/2023 8:51 PM CDT) [facility] Phosphorus, pl 2.6 2.3 - 4.5 mg/dL Blood 12/06/2023 8:51 PM CDT 12/06/2023 9:06 PM CDT [facility] Final Result Performing Organization Address City/[facility] Co de Phone Number [facility] [place] [address] * Magnesium (12/06/2023 8:51 PM CDT) [facility] Magnesium 2.1 1.4 - 2.5 mg/dL Blood 12/06/2023 8:51 PM CDT 12/06/2023 9:06 PM CDT [facility] LAB BLOOD ORDERABLES Final Result Performing Organization Address City/[facility] Co de Phone Number [facility] [employer] [place] [address] * (ABNORMAL) Basic metabolic panel (12/06/2023 8:51 PM CDT) [facility] Sodium 137 135 - 145 mmol/L Potassium, pl 4.2 3.3 - 4.9 mmol/L [facility] Chloride 104 97 - 110 mmol/L [facility] CO2 25 22 - 32 mmol/L [facility] Anion gap 8 2 - 15 mmol/L [facility] BUN 6 6 - 25 mg/dL [facility] Creatinine 0.62 0.60 - 1.10 mg/dL [facility] Glucose 93 70 - 199 mg/dL [facility] Comment: Interpretive Data Fasting glucose >/= [...] interpretive data was last revised 2022. Calcium 8.0(L) 8.5 - 10.3 mg/dL [facility] Blood 12/06/2023 8:51 PM CDT 12/06/2023 9:06 PM CDT Rika Solano NP LAB BLOOD ORDERABLES Final Result [facility] [place] [address] * Critical Care (12/06/2023 6:41 PM CDT) Narrative Robert Shetty MD - 12/06/2023 6:41 PM CDT Chinyere Abreu NP ? 12/07/2023 ??5:10 AM Critical Care Performed by: Chinyere Abreu NP Authorized by: Chinyere Abreu NP ?? CRITICAL CARE: ??Team: ??SICU BLUE ??Shift: ??PM ??Level of Billing: ??Subsequent Hospital Visit Level 3 ??My time spent with this patient was 65 minutes: Critical Provider Statement: I have seen and examined the patient on this day of service. I have reviewed and confirmed the history, physical exam, laboratory, and radiographic data as documented in the ICU note. I have reviewed and discussed my treatment plan with the patient's team and other medical/lead consultant staff. This time was in addition to and separate from care provided by other practitioners on this day of service. ?? us Chinyere Abreu NP IN CLINIC/BEDSIDE OR DERABLES Final Result * CP-CRE culture, surveillance Rectal swab (12/06/2023 6:15 PM CDT) Report Amended Report - Complete: Negative Rectal swab 12/06/2023 6:15 PM CDT 12/06/2023 7:44 PM CDT Narrative KAVITACLARA [facility] - 12/09/2023 10:16 AM CDT Interpretive Data The screening agar used for the detection of carbapenemase-producing Enterobacterales (CP-CRE) has not been approved by the Food and Drug Administration. The performance characteristics of this medium have been evaluated and verified by the [facility]. This media demonstrates highest sensitivity for KPC and NDM-1 producing isolates. This screening assay is exclusively intended for infection control and surveillance, not for patient diagnosis or treatment purposes. Current interpretive data was last revised on 2023. us Rg Krishnamurthy MD LAB MICROBIOLOGY - GENERAL OR DERABLES Edited Result - Final KATIA [facility] [place] [address] * Infection Prevention Diaz auris PCR, surveillance Axilla/Groin (12/06/2023 6:15 PM CDT) Diaz auris DNA Not Detected Not Detected [facility] Comment: Interpretive Data Testing performed by [facility] Molecular Infectious Disease Laboratory using the [employer] Liaison MDX Diaz auris assay. ??This assay detects DNA from Diaz auris using Real-Time PCR. ??This assay is laboratory developed and is not cleared by the [place] Food and Drug Administration. ??The performance characteristics have been verified by the [facility] Molecular Infectious Disease Laboratory. Interpretive data was last reviewed on 11/18/2023 Axilla/Groin 12/06/2023 6:15 PM CDT 12/06/2023 7:38 PM CDT Rg Krishnamurthy MD LAB MICROBIOLOGY - GENERAL OR DERABLES Final Result CERNER [facility] [place] [address] [facility] * Critical Care (12/06/2023 6:18 AM CDT) Narrative Rachel Colorado MD - 12/06/2023 6:18 AM CDT Len Klein PA ? 12/06/2023 ??1:28 PM Critical Care Performed by: Len Klein PA Authorized by: Len Klein PA ?? CRITICAL CARE: ??Team: ??SICU BLUE ??Shift: ??AM ??Level of Billing: ??Critical Care ??My time spent with this patient was 75 minutes: Critical Provider Statement: I have seen and examined the patient on this day of service. I have reviewed and confirmed the history, physical exam, laboratory and radiologic data as documented in the signed ICU note. I have reviewed and discussed my treatment plan with the ICU team and other medical/lead consultant staff, making frequent assessments and decisions regarding this patient's complex medical care. Critical Care time was exclusive of time spent performing separately billed procedures, treating other patients, and teaching. This time was in addition to and separate from critical care provided by other practitioners in my group on this day of service. Critical Care was necessary to treat or prevent imminent or life-threatening deterioration of the following conditions: ? I spent time reviewing and interpreting data from bedside monitors, laboratory results, and imaging, I spent time discussing the management of this critically ill patient with consultants and the medical staff and I spent time documenting in the medical record us Len MCLEAN IN CLINIC/BEDSIDE ORDERA BLES Final Result * XR Abdomen Ap 1 Vw (12/05/2023 9:20 PM CDT) Anatomical Region Laterality Modality Body, Abdomen N/A Computed Radiogr aphy 12/06/2023 5:49 AM CDT Impressions 12/06/2023 5:49 AM CDT A single view of the abdomen is submitted for evaluation. Posterior fusion instrumentation is noted. ??Bilateral total hip arthroplasties. ??Surgical clips are seen in the right upper quadrant. Normal bowel gas pattern. ??Air is seen throughout dilated small bowel and colon. Electronically signed by: Antoine Chisholm M.D. Narrative 12/06/2023 5:49 AM CDT EXAMINATION: Abdomen, one view. HISTORY: ileus COMPARISON: None Procedure Note Antoine Chisholm MD - 12/06/2023 EXAMINATION: Abdomen, one view. HISTORY: ileus COMPARISON: None IMPRESSION: A single view of the abdomen is submitted for evaluation. Posterior fusion instrumentation is noted. Bilateral total hip arthroplasties. Surgical clips are seen in the right upper quadrant. Normal bowel gas pattern. Air is seen throughout dilated small bowel and colon. Electronically signed by: Antoine Chisholm M.D. us Jeremy Michelle MD IMG XR PROCEDURES Fi nal Result * eGFR (12/05/2023 7:37 PM CDT) eGFR >90 >=60 mL/min/1. 73 m2 Comment: Interpretive Data [...] interpretive data was last reviewed 2021. Blood 12/05/2023 7:37 PM CDT 12/05/2023 7:56 PM CDT Chinyere Abreu FIELD SERVICE REP LAB BLOOD ORDERABLES Final Result Performing Organization Address City/[facility]/ZIP Co de Phone Number [facility] [employer] [place] [place] [address] * Lactate, whole blood (12/05/2023 7:37 PM CDT) Lactate, bld 0.8 0.7 - 2.0 mmol/L Blood 12/05/2023 7:37 PM CDT 12/05/2023 7:49 PM CDT Chinyere Abreu NP LAB BLOOD ORDERABLES Final Result Performing Organization Address [facility] Co de Phone Number [facility] [employer] [place] [place] [address] * (ABNORMAL) Calcium, ionized (12/05/2023 7:37 PM CDT) Calcium, Ionized 4.44(L) 4.50 - 5.10 mg/dL Blood 12/05/2023 7:37 PM CDT 12/05/2023 7:49 PM CDT Chinyere Abreu NP LAB BLOOD ORDERABLES Final Result Performing Organization Address City/[facility]/ZIP Co de Phone Number [facility] [place] [address] * (ABNORMAL) Basic metabolic panel (12/05/2023 7:37 PM CDT) Pathologist [facility] Sodium 135 135 - 145 mmol/L Potassium, pl 3.7 3.3 - 4.9 mmol/L [facility] Chloride 103 97 - 110 mmol/L [facility] CO2 25 22 - 32 mmol/L [facility] Anion gap 7 2 - 15 mmol/L [facility] BUN 5(L) 6 - 25 mg/dL [facility] Creatinine 0.56(L) 0.60 - 1.10 mg/dL [facility] Glucose 116 70 - 199 mg/dL [facility] Comment: Interpretive Data Fasting glucose >/= [...] interpretive data was last revised 2022. Calcium 8.2(L) 8.5 - 10.3 mg/dL [facility] Blood 12/05/2023 7:37 PM CDT 12/05/2023 7:56 PM CDT Chinyere Abreu FIELD SERVICE REP LAB BLOOD ORDERABLES Final Result [facility] [place] [address] * Phosphorus (12/05/2023 7:37 PM CDT) Pathologist [facility] Phosphorus, pl 2.3 2.3 - 4.5 mg/dL Blood 12/05/2023 7:37 PM CDT 12/05/2023 7:56 PM CDT Chinyere Abreu FIELD SERVICE REP LAB BLOOD ORDERABLES Final Result [facility] [employer] [place] [place] [address] * Magnesium (12/05/2023 7:37 PM CDT) [facility] Magnesium 2.2 1.4 - 2.5 mg/dL Blood 12/05/2023 7:37 PM CDT 12/05/2023 7:56 PM CDT Chinyere Yanni Abreu FIELD SERVICE REP LAB BLOOD ORDERABLES Final Result Performing Organization Address [facility] Co de Phone Number [facility] [place] [address] * (ABNORMAL) CBC without differential (12/05/2023 7:37 PM CDT) [facility] WBC 9.5 3.8 - 9.9 K/cumm Hgb 8.9(L) 11.9 - 15.5 g/dL [facility] Hct 25.9(L) 35.6 - 45.5 % [facility] Plt 173 150 - 400 K/cumm [facility] MPV 10.3 9.1 - 12.3 fL [facility] RBC 3.02(L) 3.90 - 5.20 M/cumm [facility] MCV 85.8 81.3 - 96.4 fL [facility] MCH 29.5 27.1 - 33.3 pg [facility] MCHC 34.4 32.3 - 35.7 g/dL [facility] RDW CV 15.0(H) 11.1 - 14.9 % [facility] RDW SD 47.6 35.7 - 48.1 fL [facility] NRBC abs 0.00 0.00 - 0.01 K/cumm [facility] Blood 12/05/2023 7:37 PM CDT 12/05/2023 7:56 PM CDT Result [facility] Chinyere Abreu NP LAB BLOOD ORDERABLES Final Result CERNER [facility] [place] [address] * Critical Care (12/05/2023 7:00 PM CDT) Narrative Robert Shetty MD - 12/05/2023 7:00 PM CDT Chinyere Abreu NP ? 12/06/2023 ??5:01 AM Critical Care Performed by: Chinyere Abreu NP Authorized by: Chinyere Abreu NP ?? CRITICAL CARE: ??Team: ??SICU BLUE ??Shift: ??PM ??Level of Billing: ??Subsequent Hospital Visit Level 3 ??My time spent with this patient was 65 minutes: Critical Provider Statement: I have seen and examined the patient on this day of service. I have reviewed and confirmed the history, physical exam, laboratory, and radiographic data as documented in the ICU note. I have reviewed and discussed my treatment plan with the patient's team and other medical/lead consultant staff. This time was in addition to and separate from care provided by other practitioners on this day of service. ?? us Chinyere Abreu FIELD SERVICE REP IN CLINIC/BEDSIDE OR DERABLES Final Result * Critical Care (12/05/2023 7:12 AM CDT) Narrative Rachel Colorado MD - 12/05/2023 7:12 AM CDT Len Klein PA ? 12/05/2023 ??6:59 PM Critical Care Performed by: Len Klein PA Authorized by: Len Klein PA ?? CRITICAL CARE: ??Team: ??SICU BLUE ??Shift: ??AM ??Level of Billing: ??Critical Care ??My time spent with this patient was 75 minutes: Critical Provider Statement: I have seen and examined the patient on this day of service. I have reviewed and confirmed the history, physical exam, laboratory and radiologic data as documented in the signed ICU note. I have reviewed and discussed my treatment plan with the ICU team and other medical/lead consultant staff, making frequent assessments and decisions regarding this patient's complex medical care. Critical Care time was exclusive of time spent performing separately billed procedures, treating other patients, and teaching. This time was in addition to and separate from critical care provided by other practitioners in my group on this day of service. Critical Care was necessary to treat or prevent imminent or life-threatening deterioration of the following conditions: ? I spent time reviewing and interpreting data from bedside monitors, laboratory results, and imaging, I spent time discussing the management of this critically ill patient with consultants and the medical staff and I spent time documenting in the medical record Len MCLEAN IN CLINIC/BEDSIDE ORDERA BLES Final Result * eGFR (12/05/2023 5:54 AM CDT) Pathologist [facility] eGFR >90 >=60 mL/min/1. 73 m2 Comment: Interpretive Data [...] of Race in Diagnosing Kidney Disease, JASN 202). The CKD-EPI equation should not be used for patients with unstable renal function and has not been validated in children and those over 70. Current interpretive data was last reviewed 2021. Blood 12/05/2023 5:54 AM CDT 12/05/2023 6:17 AM CDT Chinyere Abreu FIELD SERVICE REP LAB BLOOD ORDERABLES Final Result [facility] [place] [address] * (ABNORMAL) CBC without differential (12/05/2023 5:54 AM CDT) Pathologist [facility] WBC 9.7 3.8 - 9.9 K/cumm Hgb 8.6(L) 11.9 - 15.5 g/dL [facility] Hct 24.9(L) 35.6 - 45.5 % [facility] Plt 168 150 - 400 K/cumm [facility] MPV 10.1 9.1 - 12.3 fL [facility] RBC 2.88(L) 3.90 - 5.20 M/cumm [facility] MCV 86.5 81.3 - 96.4 fL [facility] MCH 29.9 27.1 - 33.3 pg [facility] MCHC 34.5 32.3 - 35.7 g/dL [facility] RDW CV 15.0(H) 11.1 - 14.9 % [facility] RDW SD 47.2 35.7 - 48.1 fL [facility] NRBC abs 0.00 0.00 - 0.01 K/cumm [facility] Blood 12/05/2023 5:54 AM CDT 12/05/2023 6:17 AM CDT Chinyere Abreu FIELD SERVICE REP LAB BLOOD ORDERABLES Final Result [facility] [place] [address] * Phosphorus (12/05/2023 5:54 AM CDT) Phosphorus, pl 3.1 2.3 - 4.5 mg/dL Blood 12/05/2023 5:54 AM CDT 12/05/2023 6:17 AM CDT Chinyere Abreu FIELD SERVICE REP LAB BLOOD ORDERABLES Final Result Performing Organization Address City/[facility]/ZIP Co de Phone Number [facility] [place] [address] * Magnesium (12/05/2023 5:54 AM CDT) [facility] Magnesium 2.1 1.4 - 2.5 mg/dL Blood 12/05/2023 5:54 AM CDT 12/05/2023 6:17 AM CDT Chinyere Abreu FIELD SERVICE REP LAB BLOOD ORDERABLES Final Result Performing Organization Address [facility] de Phone Number [facility] [place] [address] * (ABNORMAL) Basic metabolic panel (12/05/2023 5:54 AM CDT) [facility] Sodium 139 135 - 145 mmol/L Potassium, pl 3.3 3.3 - 4.9 mmol/L [facility] Chloride 104 97 - 110 mmol/L [facility] CO2 27 22 - 32 mmol/L [facility] Anion gap 8 2 - 15 mmol/L [facility] BUN 5(L) 6 - 25 mg/dL [facility] Creatinine 0.54(L) 0.60 - 1.10 mg/dL [facility] Glucose 117 70 - 199 mg/dL [facility] Comment: Interpretive Data Fasting glucose >/= [...] interpretive data was last revised 2022. Calcium 7.1(L) 8.5 - 10.3 mg/dL [facility] Blood 12/05/2023 5:54 AM CDT 12/05/2023 6:17 AM CDT Chinyere Yanni Abreu FIELD SERVICE REP LAB BLOOD ORDERABLES Final Result [facility] [place] [address] * eGFR (12/04/2023 9:28 PM CDT) eGFR >90 >=60 mL/min/1. 73 m2 Comment: Interpretive Data [...] interpretive data was last reviewed 2021. Blood 12/04/2023 9:28 PM CDT 12/04/2023 9:41 PM CDT Ad Ron Conteaden MCLEAN LAB BLOOD ORDERABLES Final Result [facility] [place] [address] * (ABNORMAL) Comprehensive metabolic panel (12/04/2023 9:28 PM CDT) Sodium 136 135 - 145 mmol/L Potassium, pl 3.6 3.3 - 4.9 mmol/L [facility] Chloride 104 97 - 110 mmol/L [facility] CO2 26 22 - 32 mmol/L [facility] Anion gap 6 2 - 15 mmol/L [facility] BUN 7 6 - 25 mg/dL [facility] Creatinine 0.54(L) 0.60 - 1.10 mg/dL [facility] Glucose 146 70 - 199 mg/dL [facility] Comment: Interpretive Data Fasting glucose >/= [...] interpretive data was last revised 2022. Calcium 7.8(L) 8.5 - 10.3 mg/dL [facility] Bilirubin, total 0.3 0.1 - 1.2 mg/dL [facility] Protein, pl 5.3(L) 6.5 - 8.5 g/dL [facility] Albumin 2.8(L) 3.5 - 5.0 g/dL [facility] Alk phos 84 40 - 130 Units/L [facility] ALT 76(H) 7 - 45 Units/L [facility] AST 132(H) 10 - 45 Units/L [facility] Blood 12/04/2023 9:28 PM CDT 12/04/2023 9:41 PM CDT Ad MCLEAN LAB BLOOD ORDERABLES Final Result Performing Organization Address [facility] Co de Phone Number [facility] [place] [address] * (ABNORMAL) Phosphorus (12/04/2023 9:28 PM CDT) [facility] Phosphorus, pl 1.7(L) 2.3 - 4.5 mg/dL Blood 12/04/2023 9:28 PM CDT 12/04/2023 9:41 PM CDT Ad MCLEAN LAB BLOOD ORDERABLES Final Result Performing Organization Address [facility] de Phone Number [facility] [place] [address] * Magnesium (12/04/2023 9:28 PM CDT) [facility] Magnesium 1.8 1.4 - 2.5 mg/dL Blood 12/04/2023 9:28 PM CDT 12/04/2023 9:41 PM CDT Ad MCLEAN LAB BLOOD ORDERABLES Final Result Performing Organization Address [facility] de Phone Number [facility] [place] [address] * (ABNORMAL) CBC without differential (12/04/2023 9:28 PM CDT) [facility] WBC 11.1(H) 3.8 - 9.9 K/cumm Hgb 8.7(L) 11.9 - 15.5 g/dL [facility] Hct 25.8(L) 35.6 - 45.5 % [facility] Plt 148(L) 150 - 400 K/cumm [facility] MPV 10.1 9.1 - 12.3 fL [facility] RBC 2.95(L) 3.90 - 5.20 M/cumm [facility] MCV 87.5 81.3 - 96.4 fL [facility] MCH 29.5 27.1 - 33.3 pg [facility] MCHC 33.7 32.3 - 35.7 g/dL [facility] RDW CV 15.0(H) 11.1 - 14.9 % [facility] RDW SD 48.3(H) 35.7 - 48.1 fL [facility] NRBC abs 0.00 0.00 - 0.01 K/cumm [facility] Blood 12/04/2023 9:28 PM CDT 12/04/2023 9:41 PM CDT Ad MCLEAN LAB BLOOD ORDERABLES Final Result [facility] Department [place] [address] * ECG 12 lead (12/04/2023 9:17 PM CDT) Ventricular Rate EKG/Min 126 BPM [facility] QRS-Interval (MSEC) 112 ms [facility] QT-Interval (MSEC) 354 ms [facility] QTc 512 ms [facility] R [place] 11 degrees [facility] T [place] 184 degrees [facility] Diagnosis Atrial fibrillation with rapid ventricular response with occasional ventricular-paced complexes Incomplete left bundle branch block Marked ST abnormality, possible inferolateral subendocardial injury Abnormal ECG Confirmed by Marcel Westfall MD ([id number]) on 12/07/2023 3:12:42 PM [facility] 12/04/2023 9:17 PM CDT 12/07/2023 3:12 PM CDT us Chinyere Abreu FIELD SERVICE REP ECG ORDERABLES Geovanna l Result [facility] * Critical Care (12/04/2023 7:41 PM CDT) Narrative Robert Shetty MD - 12/04/2023 7:41 PM CDT Chinyere Abreu NP ? 12/05/2023 ??4:57 AM Critical Care Performed by: Chinyere Abreu NP Authorized by: Chinyere Abreu NP ?? CRITICAL CARE: ??Team: ??SICU BLUE ??Shift: ??PM ??Level of Billing: ??Critical Care ??My time spent with this patient was 120 minutes: Critical Provider Statement: I have seen and examined the patient on this day of service. I have reviewed and confirmed the history, physical exam, laboratory and radiologic data as documented in the signed ICU note. I have reviewed and discussed my treatment plan with the ICU team and other medical/lead consultant staff, making frequent assessments and decisions regarding this patient's complex medical care. Critical Care time was exclusive of time spent performing separately billed procedures, treating other patients, and teaching. This time was in addition to and separate from critical care provided by other practitioners in my group on this day of service. Critical Care was necessary to treat or prevent imminent or life-threatening deterioration of the following conditions: ? I spent time reviewing and interpreting data from bedside monitors, laboratory results, and imaging, I spent time discussing the management of this critically ill patient with consultants and the medical staff and I spent time documenting in the medical record us Chinyere Abreu NP IN CLINIC/BEDSIDE OR DERABLES Final Result * POCT glucose (12/04/2023 7:28 PM CDT) Glucose, POC 129 70 - 199 mg/dL Blood 12/04/2023 7:28 PM CDT 12/04/2023 7:28 PM CDT us Jeremy Michelle MD LAB POCT ORDERABLES - DEVICE Final Result [facility] Department [place] [address] * (ABNORMAL) Troponin I high-sensitivity 6-hour (12/04/2023 5:57 PM CDT) Trop I hs 11,198(C) <=17 ng/L Comment: Previous critical value noted within 48 hours ago. Interpretive Data For further hscTnI resources including the diagnostic algorithm and an aid in interpretation, copy and paste this link: https://bjhlab.testcatalog.org/show/[email or web address] Current Interpretive Data last revised 2020. Trop I hs pct delta -20(C) % [facility] Comment:reviewed Trop I hs interp Significa nt(C) [facility] Comment:reviewed Blood 12/04/2023 5:57 PM CDT 12/04/2023 6:08 PM CDT us Len MCLEAN LAB BLOOD ORDERABLES Fin al Result [facility] [place] [address] * TRANSTHORACIC ECHO (TTE) COMPLETE W DOPPLER/CF W CONTRAST (12/04/2023 3:48 PM CDT) LV EF 76 % CARDIOREPORT Anatomical Region Laterality Modality Ultrasound 12/04/2023 1:50 PM CDT Narrative 12/04/2023 4:27 PM CDT Patient name: Macie Briseno Date of test: 12/04/2023 Type of test: TTE w/Doppler Hospital #: 0 Date of : 1945 (F) Advertising Sales Associate: Johnathan Diez THAD Referring Physician: LEN KLEIN MD Contrast Agent: 1.1 ml Optison Administered, (1.9 ml wasted). Contrast Administered by: Supervised/Interpreted by: Edgar Arroyo MD Diagnosis: Location: [facility] Reason for test: AFib w/ RVR MV Structure: Normal, ?MV Motion: Normal, ?? Mitral Annulus: Normal AV Structure: tricuspid and is mildly thickened, ?? AV Motion: Normal Aotic root: Normal, ?TM: Normal, ?? PV: Normal Valvular Vegetations: none seen, ?Mass/Thrombi: none seen RA: Normal Measurements: ?M-Mode ?Normal ? Aotic Root: ? <3.8 ? LA: ? <3.8 ? RV: ? <2.8 ? LV(ED): ? <5.7 ? LV(ES): ? Variable ?2D Linear Normal ? Aotic Root: 3.2 cm ?<3.6 ? Ao Indexed: 1.7 cm/M2 <2.0 ? LA: ? <3.8 ? RV: ? <4.2 ? LV(ED): ? 4.2 cm ?<5.3 ? LV(ES): ? 2.5 cm ?<3.5 ?2D Vol. ?? Normal ?Indexed ?? Indexed Normal RA: ? 31.0 ml ? 16.6 ml/M2 ?9-33 ? LA: ? 70.0 ml ? 37.5 ml/M2 ?16-34 ? RV: ? <11.6 ? LV(ED): ? 85.0 ml ?? 46-106 ?45.5 ml/M2 ?<62 ? LV(ES): ? 20.0 ml ?? 14-42 ? 10.7 ml/M2 ?<25 ?3D Vol. ? Indexed Normal LV(ED): ?<62 ? LV(ES): ?<24 ? LV EF: 76 % ?? (Normal: >=54%) ?? LV Septum: 1.1 cm ?(Normal: <0.9 cm) Wall Motion Scoring (1=Normal 2=Hypo 3=Akinetic 4=Dyskin./Aneurysm 0=Not visualized) Parasternal Long [place]:MAS=1 BAS=1 MIL=1 OLGA=1 Parasternal Short [place]:MAS=1 MIS=1 MO=1 MIL=1 MAL=1 MA=1 Apical 4 Chambers:=1 MIS=1 BIS=1 BAL=1 MAL=1 AL=1 AC=1 Apical 2 Chambers:AI=1 MO=1 BI=1 BA=1 MA=1 AA=1 AC=1 LV Global Longitudinal Strain: -11.5% ??(Normal <-17%) RV Global Longitudinal Strain: -12.6% ??(Normal <-17%) LV Function: Normal LV Ejection Fraction, ??(EF=54-74%) RV Function: Normal Septal Motion: Normal Pericardial Effusion: none seen Atrial Septum: Normal DOPPLER/COLOR FLOW DOPPLER RESULTS: Diastolic Function: Normal Tricuspid Valve: mild TV regurgitation Pulmonic Valve: normal PV AV Regurgitation: No AR seen AV Stenosis: no AV Area: ??cm2 AV Pressure Gradient (mmHg): Mean: 0, Peak:0 MV Regurgitation: Mild MR MV Stenosis: no MS MV Area: ??cm2 MV Pressure Gradient (mmHg): Mean: 0 MV ERO: ??cm Regurg. Vol.: ??ml/beat Regurg. Frac.: ??% PA Pressure: 25+RA mmHg DOPPLER/COLOR FOLOW DOPPLER [...] size and function. Mild MR. Mild TR. ??Estimated PA systolic pressure 25+RA(3) mmHg. Reduced apical LV strain c/w apical hypertrophic CM. Diastolic function indicates normal LV filling pressures. PM wire seen in RV. ??Normal Inferior vena cava. Normal aorta. No prior study. Confirmed on ??12/04/2023 - 16:27:55 by Edgar Arroyo MD By signing this report, the attending senior cyber intelligence analyst certifies that he or she has personally supervised and interpreted the echocardiogram and has reviewed and or edited and agrees with the written comments contained within the report. Procedure Note Edgar Jacob MD - 12/04/2023 Patient name: Macie Briseno Date of test: 12/04/2023 Type of test: TTE w/Doppler Hospital #: 0 Date of : 1945 (F) Advertising Sales Associate: Johnathan Diez [facility] Referring Physician: LEN KLEIN MD Contrast Agent: 1.1 ml Optison Administered, (1.9 ml wasted). Contrast Administered by: Supervised/Interpreted by: Edgar Arroyo MD Diagnosis: Location: [facility] Reason for test: AFib w/ RVR MV [...] 2=Hypo 3=Akinetic 4=Dyskin./Aneurysm 0=Not visualized) Parasternal Long [place]:MAS=1 BAS=1 MIL=1 OLGA=1 Parasternal Short [place]:MAS=1 MIS=1 MO=1 MIL=1 MAL=1 MA=1 Apical 4 Chambers:=1 MIS=1 BIS=1 BAL=1 MAL=1 AL=1 AC=1 Apical 2 Chambers:AI=1 MO=1 BI=1 BA=1 MA=1 AA=1 AC=1 LV Global [...] MD By signing this report, the attending senior cyber intelligence analyst certifies that he or she has personally supervised and interpreted the echocardiogram and has reviewed and or edited and agrees with the written comments contained within the report. us Len MCLEAN CV ECHO PROCEDURES Final Result * (ABNORMAL) Troponin I high-sensitivity 4-hour (12/04/2023 3:44 PM CDT) Trop I hs 12,137(C) <=17 ng/L Comment: Previous critical value noted within 48 hours ago. Interpretive Data For further hscTnI resources including the diagnostic algorithm and an aid in interpretation, copy and paste this link: https://bjhlab.testcatalog.org/show/hsTrop-[email or web address] Current Interpretive Data last revised 2020. Trop I hs pct delta -14 % [facility] Trop I hs interp Equivocal [facility] Blood 12/04/2023 3:44 PM CDT 12/04/2023 4:02 PM CDT us Len MCLEAN LAB BLOOD ORDERABLES Fin al Result [facility] Department [place] [address] * POCT glucose (12/04/2023 3:40 PM CDT) Glucose, POC 115 70 - 199 mg/dL Blood 12/04/2023 3:40 PM CDT 12/04/2023 3:40 PM CDT us Jeremy Michelle MD LAB POCT ORDERABLES - DEVICE Final Result [facility] [place] [address] * (ABNORMAL) Pro B-type natriuretic peptide (12/04/2023 1:45 PM CDT) NT-proBNP 1,785(H) <=450 pg/mL Comment: Interpretive Comments: A. Dyspnea in Acute Care Setting All Ages: ?< 300 pg/ml, acute heart failure unlikely. < 50 yrs: ?300 - 450 pg/ml, further investigation warranted. ? > 450 pg/ml, acute heart failure likely. 50 - 74 yrs: ? 300 - 900 pg/ml, further investigation warranted. ? > 900 pg/ml, acute heart failure likely . > or = 75 yrs: ? 450 - 1800 pg/ml, further investigation warranted. ? > 1800 pg/ml, acute heart failure likely. B. Non-acute Setting < 75 yrs ? < 125 pg/ml, rules out heart failure. ? > or = 125 pg/ml, further investigation warranted. > or = 75 yrs ?< 450 pg/ml, rules out heart failure. ? > or = 450 pg/ml, further investigation warranted. - Knowledge of each individual patient's NT-proBNP range may be more useful than using similar cut-points for every patient. Please note that marked elevations in NT-proBNP levels may be observed in state other than Left Ventricular Congestive Failure, including: acute coronary syndromes, right heart strain/failure (including pulmonary embolism and cor pulmonale), critical illness, renal failure, as well as advanced age. - References: 1. Chidi VEGA et.al. Eur Heart J. 2006:27:330-337. 2. Jp METZGER, Anna Marie CODY. J. AM Robin Cardiol: Cardiovasc Imag. 2009;2: 216- 225. Interpretive Data Last Revised Date: 2018. Blood 12/04/2023 1:45 PM CDT 12/04/2023 1:58 PM CDT [facility] Herson MCLEAN LAB BLOOD ORDERABLES Fin al Result Performing Organization Address [facility] Co de Phone Number [facility] [place] [address] * (ABNORMAL) Troponin I high-sensitivity 2-hour (12/04/2023 1:34 PM CDT) Trop I hs 12,405(C) <=17 ng/L Comment: Previous critical value noted within 48 hours ago. Interpretive Data For further hscTnI resources including the diagnostic algorithm and an aid in interpretation, copy and paste this link: https://bjhlab.testcatalog.org/show/[email or web address] Current Interpretive Data last revised 2020. Trop I hs pct delta -12(C) % [facility] Trop I hs interp Significa nt(C) [facility] Blood 12/04/2023 1:34 PM CDT 12/04/2023 1:52 PM CDT Len MCLEAN LAB BLOOD ORDERABLES Fin al Result Performing Organization Address [facility]/ZIP Co de Phone Number [facility] [place] [address] * POCT glucose (12/04/2023 11:55 AM CDT) Glucose, POC 99 70 - 199 mg/dL Blood 12/04/2023 11:5 5 AM CDT 12/04/2023 11:55 AM CDT us Jeremy Michelle MD LAB POCT ORDERABLES - DEVICE Final Result [facility] [place] [address] * (ABNORMAL) Lipid panel (12/04/2023 11:33 AM CDT) Cholesterol 93 30 - 199 mg/dL Comment: Interpretive Data Ages < or = 19 years ??Acceptable: ? <170 mg/dL ??Borderline high: ??170-199 mg/dL ??High: ? >or= 200 mg/dL Ages > or = 20 years ??Desirable: ?<200 mg/dL ??Borderline high: ??200-239 mg/dL ??High: ? >or= 240 mg/dL Literature References: 1. Expert Panel on Integrated Guidelines for Cardiovascular Health and Risk Reduction in Children and Adolescents. Pediatrics 2011;128:S213 2. NCEP Expert Panel. Circulation 2004;110:227 Current Interpretive Data was last revised on 2018. Triglycerides 139 <=149 mg/dL [facility] Comment: Interpretive Data Ages < or = 9 years ??Acceptable: ? <75 mg/dL ??Borderline high: ??75-99 mg/dL ??High: ? >or= 100 mg/dL Ages 10 to 20 years ??Acceptable: ? <90 mg/dL ??Borderline high: ??90-129 mg/dL ??High: ? >or= 130 mg/dL Ages > or = 20 years ??Desirable: ?<150 mg/dL ??Borderline high: ??150-199 mg/dL ??High: ? 200-499 mg/dL ?Very high: ?? >or= 499 mg/dL Literature References: 1. Expert Panel on Integrated Guidelines for Cardiovascular Health and Risk Reduction in Children and Adolescents. Pediatrics 2011;128:S213 2. NCEP Expert Panel. Circulation 2004;110:227 Current Interpretive Data was last revised on 2018. HDL 33(L) >=40 mg/dL [facility] Comment: Interpretive Data Ages < or = 19 years ??Acceptable: ? >45 mg/dL ??Borderline low: ?? 40-45 mg/dL ??Low: ? <40 mg/dL Ages > or = 20 years ??Desirable: ?>or= 60 mg/dL ??Low: ? <40 mg/dL Literature References: 1. Expert Panel on Integrated Guidelines for Cardiovascular Health and Risk Reduction in Children and Adolescents. Pediatrics 2011;128:S213 2. NCEP Expert Panel. Circulation 2004;110:227 Current Interpretive Data was last revised on 2018. LDL, calculated 32 <=129 mg/dL [facility] Comment: Interpretive Data Ages < or = 19 years ??Acceptable: ? <110 mg/dL ??Borderline high: ??110-129 mg/dL ??High: ?>or= 130 mg/dL Ages > or = 20 years ??Optimal: ? <100 mg/dL ??Near optimal: ?100-129 mg/dL ??Borderline high: ?? 130-159 mg/dL ??High: ?>160 mg/dL Literature References: 1. Expert Panel on Integrated Guidelines for Cardiovascular Health and Risk Reduction in Children and Adolescents. Pediatrics 2011;128:S213 2. NCEP Expert Panel. Circulation 2004;110:227 Current Interpretive Data was last revised on 2018. Non-HDL Cholesterol 60 mg/dL [facility] Comment: Interpretive Data Ages < or = 19 years ??Acceptable: ?<120 mg/dL ??Borderline high: ??120-144 mg/dL ??High: ?>145 mg/dL Ages > or = 20 years ??When triglycerides are >200 mg/dL, Non-HDL cholesterol is a secondary target of ? therapy with treatment goals that are 30 mg/dL greater than the LDL cholesterol target. ? Literature References: 1. Expert Panel on Integrated Guidelines for Cardiovascular Health and Risk Reduction in Children and Adolescents. Pediatrics 2011;128:S213 2. NCEP Expert Panel. Circulation 2004;110:227 Current Interpretive Data was last revised on 2018. Chol/HDL ratio 3 [facility] Blood 12/04/2023 11:3 3 AM CDT 12/04/2023 11:42 AM CDT Narrative [facility] - 12/04/2023 8:28 PM CDT This lipid panel was automatically ordered due to a significant change in Troponin. The dietary status of the patient at the collection time should be correlated with the lipid results. Len MCLEAN LAB BLOOD ORDERABLES Fin al Result Performing Organization Address City/[facility] Co de Phone Number [facility] [place] [employer] [place] [place] [address] * Critical result callback Cardio chemistry (12/04/2023 11:33 AM CDT) Date Notified 20231204 Time Notified 1240 [facility] Test name Trop I hs base [facility] [facility] Called/Read Back Juanito MONTALVO [facility] Credentials RN KATIA [facility] Called By [facility] Blood 12/04/2023 11:3 3 AM CDT 12/04/2023 11:42 AM CDT Len MCLEAN LAB BLOOD ORDERABLES Fin al Result [facility] Department [place] [employer] [place] [place] [address] * eGFR (12/04/2023 11:33 AM CDT) eGFR >90 >=60 mL/min/1. 73 m2 Comment: Interpretive Data [...] interpretive data was last reviewed 2021. Blood 12/04/2023 11:3 3 AM CDT 12/04/2023 11:42 AM CDT Len MCLEAN LAB BLOOD ORDERABLES Fin al Result KATIA [facility] Department [place] [address] * (ABNORMAL) Troponin I high-sensitivity series (baseline, 2hr, 4hr, 6hr) (12/04/2023 11:33 AM CDT) Trop I hs 14,046(C) <=17 ng/L Comment: Interpretive Data For further [facility] resources including the diagnostic algorithm and an aid in interpretation, copy and paste this link: [email or web address]://[email or web address].org/show/[email or web address] Current Interpretive Data last revised 2020. Blood 12/04/2023 11:3 3 AM CDT 12/04/2023 11:42 AM CDT [facility] Herson Klein MA LAB BLOOD ORDERABLES Fin al Result Performing Organization Address City/[facility] de Phone Number [facility] [employer] [place] [place] [address] * (ABNORMAL) Phosphorus (12/04/2023 11:33 AM CDT) Pathologist [facility] Phosphorus, pl 1.4(L) 2.3 - 4.5 mg/dL Blood 12/04/2023 11:3 3 AM CDT 12/04/2023 11:42 AM CDT [facility] Herson Klein MA LAB BLOOD ORDERABLES Fin al Result Performing Organization Address [facility] [place] [address] * Magnesium (12/04/2023 11:33 AM CDT) Pathologist [facility] Magnesium 2.0 1.4 - 2.5 mg/dL Blood 12/04/2023 11:3 3 AM CDT 12/04/2023 11:42 AM CDT [facility] Herson Welch MA LAB BLOOD ORDERABLES Fin al Result Performing Organization Address [facility] de Phone Number [place], [place] [id number] * (ABNORMAL) Basic metabolic panel (12/04/2023 11:33 AM CDT) Sodium 137 135 - 145 mmol/L Potassium, pl 3.9 3.3 - 4.9 mmol/L [facility] Chloride 106 97 - 110 mmol/L [facility] CO2 26 22 - 32 mmol/L [facility] Anion gap 5 2 - 15 mmol/L [facility] BUN 9 6 - 25 mg/dL [facility] Creatinine 0.60 0.60 - 1.10 mg/dL [facility] Glucose 115 70 - 199 mg/dL [facility] Comment: Interpretive Data Fasting glucose >/= [...] interpretive data was last revised 2022. Calcium 8.0(L) 8.5 - 10.3 mg/dL [facility] Blood 12/04/2023 11:3 3 AM CDT 12/04/2023 11:42 AM CDT Len MCLEAN LAB BLOOD ORDERABLES Fin al Result [facility] [place] [address] * XR Chest 1 View (12/04/2023 10:23 AM CDT) Anatomical Region Laterality Modality Body, Chest N/A Digital Radiogra phy 12/04/2023 10:4 3 AM CDT Impressions 12/04/2023 10:43 AM CDT The current study is compared with the prior radiograph dated 09/29/2023 An atrio-ventricular pacer device is in place with leads overlying expected position. ??Heart is upper limits of normal in size There is no pneumothorax.. ??No effusions no mass or lymphadenopathy. ??There may be trace interstitial edema. Electronically signed by: Camelia Mckeon M.D. Narrative 12/04/2023 10:43 AM CDT EXAMINATION: 1 view chest radiograph Procedure Note Camelia Mckeon MD - 12/04/2023 EXAMINATION: 1 view chest radiograph IMPRESSION: The current study is compared with the prior radiograph dated 09/29/2023 An atrio-ventricular pacer device is in place with leads overlying expected position. Heart is upper limits of normal in size There is no pneumothorax.. No effusions no mass or lymphadenopathy. There may be trace interstitial edema. Electronically signed by: Camelia Mckeon M.D. us Len MCLEAN IMG XR PROCEDURES Final Result * POCT glucose (12/04/2023 7:09 AM CDT) Glucose, POC 115 70 - 199 mg/dL Blood 12/04/2023 7:09 AM CDT 12/04/2023 7:09 AM CDT us Jeremy Michelle MD LAB POCT ORDERABLES - DEVICE Final Result [facility] [place] [address] * Critical Care (12/04/2023 6:53 AM CDT) Narrative Kalye Anderson MD - 12/04/2023 6:53 AM CDT Len Klein PA ? 12/04/2023 ??2:19 PM Critical Care Performed by: Len Klein PA Authorized by: Len Klein PA ?? CRITICAL CARE: ??Team: ??SICU BLUE ??Shift: ??AM ??Level of Billing: ??Critical Care ??My time spent with this patient was 125 minutes: Critical Provider Statement: I have seen and examined the patient on this day of service. I have reviewed and confirmed the history, physical exam, laboratory and radiologic data as documented in the signed ICU note. I have reviewed and discussed my treatment plan with the ICU team and other medical/lead consultant staff, making frequent assessments and decisions regarding this patient's complex medical care. Critical Care time was exclusive of time spent performing separately billed procedures, treating other patients, and teaching. This time was in addition to and separate from critical care provided by other practitioners in my group on this day of service. Critical Care was necessary to treat or prevent imminent or life-threatening deterioration of the following conditions: ?? Len MCLEAN IN CLINIC/BEDSIDE ORDERA BLES Final Result * AK ARTL CATHJ/CANNULJ MNTR/TRANSFUSION SPX PRQ (12/04/2023 3:30 AM CDT) Narrative Tobi Garcia MD PhD - 12/04/2023 3:30 AM CDT Eduard Abel, DO ? 12/04/2023 ??3:31 AM Arterial Line Insertion Date/Time: 12/04/2023 3:30 AM Performed by: Eduard Abel, Authorized by: Eduard Abel, DO ?? [place] Protocol: RN Notified of Procedure: yes ?? Informed consent: ??Unable to obtain due to emergent status Patient's stated name/ matches armband: ??Yes Consent form signed, dated, timed; matches correct patient, intended procedure and site: ??No consent form due to emergent status Supplies, devices and special equipment are available: yes ?? Site/side marked: yes Indications: multiple ABGs and hemodynamic monitoring ?? Location: ??Left radial Anesthesia: ??Local infiltration Local anesthetic: ??Lidocaine 1% Patient skin preparation: chlorhexidine ?? Patient preparation: ??Sterile probe cover Juancarlos's test normal?: Yes ?? Catheter gauge: ??20 Catheter length (cm): ??10 Single percutaneous needle puncture: Yes ?? Seldinger technique used: Yes ?? Number of attempts: ??1 Placement confirmed with arterial waveform: Yes ?? Post-procedure: ??Line sutured and dressing applied Post-procedure CMS: ??Normal Complications: no complications noted during insertion ?? Post Procedure Debrief: All guidewires, needles, sponges or other items are accounted for: yes ?? Eduard Abel IV THERAPY ORDERABLE S Final Result * POCT glucose (12/04/2023 3:26 AM CDT) Glucose, POC 104 70 - 199 mg/dL Blood 12/04/2023 3:26 AM CDT 12/04/2023 3:26 AM CDT Jeremy Michelle MD LAB POCT ORDERABLES - DEVICE Final Result Performing Organization Address [facility] Co de Phone Number [facility] [place] [address] * POCT glucose (12/03/2023 11:18 PM CDT) Glucose, POC 123 70 - 199 mg/dL Blood 12/03/2023 11:1 8 PM CDT 12/03/2023 11:18 PM CDT Jeremy Michelle MD LAB POCT ORDERABLES - DEVICE Final Result Performing Organization Address [facility] de Phone Number [facility] [place] [employer] [place] [address] * ECG 12 lead (12/03/2023 11:04 PM CDT) Ventricular Rate EKG/Min 68 BPM [facility] Atrial Rate 68 BPM [facility] AK-Interval (MSEC) 192 ms [facility] QRS-Interval (MSEC) 116 ms [facility] QT-Interval (MSEC) 450 ms [facility] QTc 478 ms [facility] P [place] 37 degrees [facility] R [place] 3 degrees [facility] T [place] 164 degrees [facility] Diagnosis Sinus rhythm Left ventricular hypertrophy with repolarization abnormalities Cannot rule out Septal infarct , age undetermined Abnormal ECG Confirmed by Marcel Westfall MD ([id number]) on 12/10/2023 6:54:59 AM [facility] 12/03/2023 11:0 4 PM CDT 12/10/2023 6:54 AM CDT Chinyere Abreu FIELD SERVICE REP ECG ORDERABLES Geovanna l Result [facility] * Lactate (12/03/2023 10:59 PM CDT) Lactate 1.3 0.7 - 2.0 mmol/L Blood 12/03/2023 10:5 9 PM CDT 12/03/2023 11:07 PM CDT Jeremy Michelle MD LAB BLOOD ORDERABLES Final Result Performing Organization Address [facility] Co de Phone Number [facility] [place] [address] * (ABNORMAL) Blood gas, arterial (12/03/2023 10:59 PM CDT) pH, Art 7.35 7.35 - 7.45 PCO2, Arterial 45 35 - 45 mmHg [facility] PO2, Arterial 147(H) 83 - 108 mmHg [facility] HCO3 Art (Calculated) 25 20 - 30 mmol/L [facility] BE, art -1 mmol/L [facility] Comment: Interpretive Data No Reference Range Established Current Interpretive Data was last revised on 2017 O2 Sat Art (Measured) 100(H) 90 - 95 % [facility] Blood 12/03/2023 10:5 9 PM CDT 12/03/2023 11:04 PM CDT Jeremy Michelle MD LAB BLOOD ORDERABLES Final Result Performing Organization Address [facility]/ZIP Co de Phone Number [facility] [place] [address] * (ABNORMAL) POC Blood Gas and Chemistries, Arterial - (12/03/2023 10:46 PM CDT) pH, Art POC 7.38 7.35 - 7.45 pCO2, Art POC 49(H) 35 - 45 mmHg [facility] pO2, Art POC 81(L) 83 - 108 mmHg [facility] Na, POC 135 135 - 145 mmol/L [facility] K POC 3.8 3.3 - 4.9 mmol/L [facility] Comment: Interpretive Data Not all point of care methods assess for hemolysis. Confirm with instrument and retest K+ if not consistent with clinical signs and symptoms. Current Interpretive Data was last revised on 2023. Cl, POC 105 97 - 110 mmol/L [facility] Ionized Ca, POC 4.71 4.50 - 5.10 mg/dL [facility] Glucose, POC 141 70 - 199 mg/dL [facility] Lactate, POC 1.2 0.7 - 2.2 mmol/L [facility] SO2 (alexsander) arterial 99(H) 90 - 95 % [facility] Base excess, POC 3.2 mmol/L [facility] HCO3, Art POC 29 20 - 30 mmol/L [facility] Hct, POC 30.0(L) 36.3 - 45.3 % [facility] O2 Sat, Art POC (Calc) 96 % [facility] Total Hb, POC 9.9(L) 11.9 - 15.5 g/dL [facility] Blood 12/03/2023 10:4 6 PM CDT 12/03/2023 10:46 PM CDT us Jeremy Michelle MD LAB POCT ORDERABLES - DEVICE Final Result [facility] Department [place] [address] * ECG 12 lead (12/03/2023 10:40 PM CDT) Ventricular Rate EKG/Min 124 BPM [facility] QRS-Interval (MSEC) 116 ms [facility] QT-Interval (MSEC) 392 ms [facility] QTc 563 ms [facility] R [place] -5 degrees [facility] T [place] 169 degrees [facility] Diagnosis Atrial fibrillation with rapid ventricular response Left ventricular hypertrophy with QRS widening ( R in aVL , Ez product , Romhilt-Romero ) Inferior infarct , age undetermined Marked ST abnormality, possible lateral subendocardial injury Abnormal ECG When compared with ECG of 03-DEC-2023 20:04, (unconfirmed) Atrial fibrillation has replaced Sinus rhythm ST less depressed in Lateral leads T wave inversion less evident in Inferior leads Confirmed by BONNIE LINDER M.D ([id number]) on 12/04/2023 11:59:35 AM [facility] 12/03/2023 10:4 0 PM CDT 12/04/2023 11:59 AM CDT us Jeremy Michelle MD ECG ORDERABLES Geovanna l Result [facility] [employer] [facility] * Critical Care (12/03/2023 10:19 PM CDT) Narrative Tobi Garcia MD PhD - 12/03/2023 10:19 PM CDT Juanito Sanchez NP ? 12/04/2023 ??4:37 AM Critical Care Performed by: Juanito Sanchez NP Authorized by: Juanito Sanchez NP ?? CRITICAL CARE: ??Team: ??SICU BLUE ??Shift: ??PM ??Level of Billing: ??Critical Care ??My time spent with this patient was 120 minutes: Critical Provider Statement: I have seen and examined the patient on this day of service. I have reviewed and confirmed the history, physical exam, laboratory and radiologic data as documented in the signed ICU note. I have reviewed and discussed my treatment plan with the ICU team and other medical/lead consultant staff, making frequent assessments and decisions regarding this patient's complex medical care. Critical Care time was exclusive of time spent performing separately billed procedures, treating other patients, and teaching. This time was in addition to and separate from critical care provided by other practitioners in my group on this day of service. Critical Care was necessary to treat or prevent imminent or life-threatening deterioration of the following conditions: ?? us Juanito Sanchez FIELD SERVICE REP IN CLINIC/BEDSIDE ORDER ROBERT Final Result * (ABNORMAL) Calcium, ionized (12/03/2023 9:09 PM CDT) Calcium, Ionized 4.35(L) 4.50 - 5.10 mg/dL Blood 12/03/2023 9:09 PM CDT 12/03/2023 9:19 PM CDT us Jeremy Michelle MD LAB BLOOD ORDERABLES Final Result [facility] [place] [address] * (ABNORMAL) Differential, auto (12/03/2023 9:07 PM CDT) Pathologist [facility] Neutrophil abs 9.4(H) 1.5 - 6.5 K/cumm Imm gran abs 0.1 0.0 - 0.1 K/cumm [facility] Lymphocyte abs 1.4 0.8 - 3.3 K/cumm [facility] Monocyte abs 0.9(H) 0.2 - 0.8 K/cumm [facility] Eosinophil abs 0.4 0.0 - 0.5 K/cumm [facility] Basophil abs 0.1 0.0 - 0.1 K/cumm [facility] Neutrophil pct 77.4 % [facility] Comment: Interpretive Data Percent cell count reference ranges are not reported, since discordance with absolute values may lead to misinterpretation of CBC data. Current Interpretive Data was last revised on 2017. Imm gran pct 0.7 % [facility] Comment: Interpretive Data Percent cell count reference ranges are not reported, since discordance with absolute values may lead to misinterpretation of CBC data. Current Interpretive Data was last revised on 2017. Lymphocyte pct 11.2 % [facility] Comment: Interpretive Data Percent cell count reference ranges are not reported, since discordance with absolute values may lead to misinterpretation of CBC data. Current Interpretive Data was last revised on 2017. Monocyte pct 7.3 % [facility] Comment: Interpretive Data Percent cell count reference ranges are not reported, since discordance with absolute values may lead to misinterpretation of CBC data. Current Interpretive Data was last revised on 2017. Eosinophil pct 3.0 % [facility] Comment: Interpretive Data Percent cell count reference ranges are not reported, since discordance with absolute values may lead to misinterpretation of CBC data. Current Interpretive Data was last revised on 2017. Basophil pct 0.4 % [facility] Comment: Interpretive Data Percent cell count reference ranges are not reported, since discordance with absolute values may lead to misinterpretation of CBC data. Current Interpretive Data was last revised on 2017. Blood 12/03/2023 9:07 PM CDT 12/03/2023 9:19 PM CDT us Jeremy Michelle MD LAB BLOOD ORDERABLES Final Result [facility] [place] [address] * (ABNORMAL) CBC with auto differential (12/03/2023 9:07 PM CDT) WBC 12.2(H) 3.8 - 9.9 K/cumm Hgb 10.2(L) 11.9 - 15.5 g/dL [facility] Hct 29.4(L) 35.6 - 45.5 % [facility] Plt 180 150 - 400 K/cumm [facility] MPV 10.4 9.1 - 12.3 fL [facility] RBC 3.40(L) 3.90 - 5.20 M/cumm [facility] MCV 86.5 81.3 - 96.4 fL [facility] MCH 30.0 27.1 - 33.3 pg [facility] MCHC 34.7 32.3 - 35.7 g/dL [facility] RDW CV 15.1(H) 11.1 - 14.9 % [facility] RDW SD 48.3(H) 35.7 - 48.1 fL [facility] NRBC abs 0.00 0.00 - 0.01 K/cumm [facility] Blood 12/03/2023 9:07 PM CDT 12/03/2023 9:19 PM CDT Jeremy Michelle MD LAB BLOOD ORDERABLES Final Result Performing Organization Address [facility] Co de Phone Number KATIA [facility] [place] [address] * (ABNORMAL) Troponin I high-sensitivity (12/03/2023 9:07 PM CDT) Pathologist [facility] Trop I hs 94(H) <=17 ng/L Comment: Interpretive Data For further hscTnI resources including the diagnostic algorithm and an aid in interpretation, copy and paste this link: https://[email or web address].org/show/[email or web address] Current Interpretive Data last revised 2020. Blood 12/03/2023 9:07 PM CDT 12/03/2023 9:19 PM CDT us Jeremy Michelle MD LAB BLOOD ORDERABLES Final Result Performing Organization Address [facility] de Phone Number [facility] [place] [address] * (ABNORMAL) Arterial Blood gas w/Lactate POCT (12/03/2023 9:06 PM CDT) [facility] Lactate POC i-STAT 0.7 0.7 - 2.2 mmol/L pH POC 7.41 7.35 - 7.45 [facility] pCO2, Art POC 40 35 - 45 mmHg [facility] PO2 POC 61(L) 80 - 105 mmHg [facility] CO2, total POC 26 20 - 30 mmol/L [facility] HCO3, POC 25 21 - 30 mmol/L [facility] BE POC 0 -2 - 3 mmol/L [facility] O2 sat POC 91(L) 95 - 98 % [facility] Blood 12/03/2023 9:0 6 PM CDT 12/03/2023 9:06 PM CDT us Jeremy Michelle MD LAB BLOOD ORDERABLES Final Result Performing Organization Address [facility] Co de Phone Number KATIA NIEVES [facility] Department [place] [employer] [place] [place] [address] * eGFR (12/03/2023 9:05 PM CDT) eGFR 76 >=60 mL/min/1. 73 m2 [...] interpretive data was last reviewed 2021. Blood 12/03/2023 9:05 PM CDT 12/03/2023 9:35 PM CDT us Latisha Retana FIELD SERVICE REP LAB BLOOD ORDERABLES Fin al Result Performing Organization Address [facility] Co de Phone Number KATIA NIEVES [facility] [place] [address] * Magnesium (12/03/2023 9:05 PM CDT) Pathologist [facility] Magnesium 2.2 1.4 - 2.5 mg/dL Blood 12/03/2023 9:05 PM CDT 12/03/2023 9:35 PM CDT Jeremy Michelle MD LAB BLOOD ORDERABLES Final Result Performing Organization Address City/[facility]/ZIP Co de Phone Number [facility] Department [place] [address] * Bilirubin, direct (12/03/2023 9:05 PM CDT) [facility] Bilirubin, direct <0.2 0.1 - 0.3 mg/dL Blood 12/03/2023 9:05 PM CDT 12/03/2023 9:35 PM CDT Latisha Retana NP LAB BLOOD ORDERABLES Fin al Result Performing Organization Address [facility] Co de Phone Number [facility] [place] [address] * (ABNORMAL) Comprehensive metabolic panel (12/03/2023 9:05 PM CDT) [facility] Sodium 137 135 - 145 mmol/L Potassium, pl 4.3 3.3 - 4.9 mmol/L [facility] Comment:Hemolyzed; Potassium value may be falsely elevated by as much as 0.3-0.5 mmol/L. Suggest redraw and reanalysis. Chloride 104 97 - 110 mmol/L [facility] CO2 26 22 - 32 mmol/L [facility] Anion gap 7 2 - 15 mmol/L [facility] BUN 14 6 - 25 mg/dL [facility] Creatinine 0.80 0.60 - 1.10 mg/dL [facility] Glucose 110 70 - 199 mg/dL [facility] Comment: Interpretive Data Fasting glucose >/= [...] interpretive data was last revised 2022. Calcium 8.1(L) 8.5 - 10.3 mg/dL [facility] Bilirubin, total 0.6 0.1 - 1.2 mg/dL [facility] Protein, pl 5.6(L) 6.5 - 8.5 g/dL [facility] Albumin 3.2(L) 3.5 - 5.0 g/dL [facility] Alk phos 99 40 - 130 Units/L [facility] ALT 131(H) 7 - 45 Units/L [facility] AST 197(H) 10 - 45 Units/L [facility] Comment:Hemolyzed; result ma y be falsely elevated Blood 12/03/2023 9:05 PM CDT 12/03/2023 9:35 PM CDT us Latisha Retana FIELD SERVICE REP LAB BLOOD ORDERABLES Fin al Result [facility] [place] [address] * ECG 12 lead (12/03/2023 8:04 PM CDT) Ventricular Rate EKG/Min 141 BPM [facility] Atrial Rate 133 BPM [facility] QRS-Interval (MSEC) 118 ms [facility] QT-Interval (MSEC) 370 ms [facility] QTc 566 ms [facility] R [place] 13 degrees [facility] T [place] 202 degrees [facility] Diagnosis Atrial fibrillation with a rapid ventricular response Non-specific intra-ventricular conduction delay Marked ST abnormality, possible inferolateral subendocardial injury Abnormal ECG When compared with ECG of 03-DEC-2023 19:50, (unconfirmed) Non-specific intra-ventricular conduction delay has replaced Incomplete left bundle branch block Confirmed by STAN CARABALLO M.D ([id number]) on 12/04/2023 10:12:50 AM [facility] 12/03/2023 8:04 PM CDT 12/04/2023 10:12 AM CDT Chinyere Abreu FIELD SERVICE REP ECG ORDERABLES Geovanan l Result Performing Organization Address [facility] de Phone Number [facility] * ECG 12 lead (12/03/2023 7:50 PM CDT) Ventricular Rate EKG/Min 162 BPM [facility] Atrial Rate 150 BPM [facility] QRS-Interval (MSEC) 114 ms [facility] QT-Interval (MSEC) 334 ms [facility] QTc 548 ms [facility] R [place] 21 degrees [facility] T [place] 201 degrees [facility] Diagnosis Atrial fibrillation with a rapid ventricular response Incomplete left bundle branch block Marked ST abnormality, possible inferior subendocardial injury Marked ST abnormality, possible anterolateral subendocardial injury Abnormal ECG When compared with ECG of 03-DEC-2023 14:16, (unconfirmed) Significant changes have occurred Confirmed by STAN CARABALLO M.D ([id number]) on 12/04/2023 10:11:40 AM [facility] 12/03/2023 7:50 PM CDT 12/04/2023 10:11 AM CDT Chinyere Abreu FIELD SERVICE REP ECG ORDERABLES Geovanna l Result Performing Organization Address [facility] de Phone Number [facility] * Phosphorus (12/03/2023 3:08 PM CDT) Phosphorus, pl 2.3 2.3 - 4.5 mg/dL Blood 12/03/2023 3:08 PM CDT 12/03/2023 3:56 PM CDT Result [facility] Dalia Muhammad FIELD SERVICE REP LAB BLOOD ORDERABLES Final Resu lt Performing Organization Address [facility] Co de Phone Number KATIA [facility] [facility] [place] [address] * Magnesium (12/03/2023 3:08 PM CDT) Pathologist [facility] Magnesium 2.2 1.4 - 2.5 mg/dL Blood 12/03/2023 3:08 PM CDT 12/03/2023 3:56 PM CDT Dalia Muhammad FIELD SERVICE REP LAB BLOOD ORDERABLES Final Resu lt Performing Organization Address [facility] Co de Phone Number KATIA [facility] [place] [address] * ECG 12 lead (12/03/2023 2:16 PM CDT) Pathologist [facility] Ventricular Rate EKG/Min 74 BPM [facility] Atrial Rate 74 BPM [facility] AK-Interval (MSEC) 170 ms [facility] QRS-Interval (MSEC) 112 ms [facility] QT-Interval (MSEC) 428 ms [facility] QTc 475 ms [facility] P [place] 106 degrees [facility] R [place] 4 degrees [facility] T [place] 170 degrees [facility] Diagnosis Normal sinus rhythm Left ventricular hypertrophy with repolarization abnormality Abnormal ECG When compared with ECG of 27-JUL-2020 09:57, ST no longer depressed in Anterior leads T wave inversion less evident in Inferior leads T wave inversion more evident in Lateral leads Confirmed by BONNIE LINDER M.D ([id number]) on 12/04/2023 11:56:34 AM [facility] 12/03/2023 2:16 PM CDT 12/04/2023 11:56 AM CDT Len Klein PA ECG ORDERABLES Final Re sult Performing Organization Address [facility] Co de Phone Number [facility] * eGFR (12/03/2023 3:53 AM CDT) Pathologist [facility] eGFR >90 >=60 mL/min/1. 73 m2 Comment: Interpretive Data [...] interpretive data was last reviewed 2021. Blood 12/03/2023 3:53 AM CDT 12/03/2023 4:35 AM CDT us Latisha Retana FIELD SERVICE REP LAB BLOOD ORDERABLES [facility] al Result [facility] Department [place] [address] * (ABNORMAL) Comprehensive metabolic panel (12/03/2023 3:53 AM CDT) Sodium 141 135 - 145 mmol/L Potassium, pl 4.2 3.3 - 4.9 mmol/L [facility] Chloride 109 97 - 110 mmol/L [facility] CO2 28 22 - 32 mmol/L [facility] Anion gap 4 2 - 15 mmol/L [facility] BUN 12 6 - 25 mg/dL [facility] Creatinine 0.65 0.60 - 1.10 mg/dL [facility] Glucose 132 70 - 199 mg/dL [facility] Comment: Interpretive Data Fasting glucose >/= [...] interpretive data was last revised 2022. Calcium 7.7(L) 8.5 - 10.3 mg/dL [facility] Bilirubin, total 0.5 0.1 - 1.2 mg/dL [facility] Protein, pl 5.4(L) 6.5 - 8.5 g/dL [facility] Albumin 3.3(L) 3.5 - 5.0 g/dL [facility] Alk phos 95 40 - 130 Units/L [facility] ALT 183(H) 7 - 45 Units/L [facility] AST 218(H) 10 - 45 Units/L [facility] Blood 12/03/2023 3:53 AM CDT 12/03/2023 4:35 AM CDT us Latisha Retana FIELD SERVICE REP LAB BLOOD ORDERABLES Fin al Result [facility] Department [place] [address] * (ABNORMAL) CBC without differential (12/03/2023 3:53 AM CDT) WBC 11.4(H) 3.8 - 9.9 K/cumm Hgb 10.3(L) 11.9 - 15.5 g/dL [facility] Hct 30.6(L) 35.6 - 45.5 % [facility] Plt 195 150 - 400 K/cumm [facility] MPV 9.9 9.1 - 12.3 fL [facility] RBC 3.54(L) 3.90 - 5.20 M/cumm [facility] MCV 86.4 81.3 - 96.4 fL [facility] MCH 29.1 27.1 - 33.3 pg [facility] MCHC 33.7 32.3 - 35.7 g/dL [facility] RDW CV 15.1(H) 11.1 - 14.9 % [facility] RDW SD 48.3(H) 35.7 - 48.1 fL [facility] NRBC abs 0.00 0.00 - 0.01 K/cumm [facility] Blood 12/03/2023 3:53 AM CDT 12/03/2023 4:35 AM CDT Latisha Retana FIELD SERVICE REP LAB BLOOD ORDERABLES Fin al Result Performing Organization Address [facility] de Phone Number [facility] Department [place] [employer] [place] [place] [address] * (ABNORMAL) aPTT (12/03/2023 3:53 AM CDT) aPTT 26(L) 28 - 38 sec Comment: Interpretive Data Heparin therapeutic range: 66.0 - 100.0 seconds. Range based on correlation with therapeutic heparin activity range of 0.3 - 0.7 Units/mL. Current interpretive data was last revised on 2023. Blood 12/03/2023 3:53 AM CDT 12/03/2023 4:53 AM CDT Latisha Retana FIELD SERVICE REP LAB BLOOD ORDERABLES Fin al Result Performing Organization Address [facility] Co de Phone Number [facility] [employer] [place] [place] [address] * Protime-INR (12/03/2023 3:53 AM CDT) PT 11.9 10.3 - 13.7 sec INR 1.04 0.90 - 1.20 KATIA NIEVES Comment: Interpretive data Oral anticoagulant therapeutic ranges: Venous thromboembolism prophylaxis or treatment: 2.0-3.0 CARDIOLOGY Standard range: 2.0-3.0 High-intensity range: 2.5-3.5 Refer to indication-specific guidelines for appropriate target ranges for prosthetic heart valve replacement. Current interpretive data was last revised on 2019. Blood 12/03/2023 3:53 AM CDT 12/03/2023 4:53 AM CDT us Latisha Retana FIELD SERVICE REP LAB BLOOD ORDERABLES Fin al Result KATIA NIEVES [facility] Department [place] [address] * eGFR (12/02/2023 6:26 PM CDT) eGFR >90 >=60 mL/min/1. 73 m2 Comment: Interpretive Data [...] interpretive data was last reviewed 2021. Blood 12/02/2023 6:26 PM CDT 12/02/2023 6:39 PM CDT Latisha Retana FIELD SERVICE REP LAB BLOOD ORDERABLES Fin al Result Performing Organization Address [facility] de Phone Number [facility] [employer] [place] [place] [address] * aPTT (12/02/2023 6:26 PM CDT) aPTT 28 28 - 38 sec Comment: Interpretive Data Heparin therapeutic range: 66.0 - 100.0 seconds. Range based on correlation with therapeutic heparin activity range of 0.3 - 0.7 Units/mL. Current interpretive data was last revised on 2023. Blood 12/02/2023 6:26 PM CDT 12/02/2023 6:36 PM CDT Latisha Retana FIELD SERVICE REP LAB BLOOD ORDERABLES Fin al Result Performing Organization Address [facility] [place] [address] * Protime-INR (12/02/2023 6:26 PM CDT) PT 12.3 10.3 - 13.7 sec INR 1.08 0.90 - 1.20 [facility] Comment: Interpretive data Oral anticoagulant therapeutic ranges: Venous thromboembolism prophylaxis or treatment: 2.0-3.0 CARDIOLOGY Standard range: 2.0-3.0 High-intensity range: 2.5-3.5 Refer to indication-specific guidelines for appropriate target ranges for prosthetic heart valve replacement. Current interpretive data was last revised on 2019. Blood 12/02/2023 6:26 PM CDT 12/02/2023 6:36 PM CDT Latisha Retana FIELD SERVICE REP LAB BLOOD ORDERABLES Fin al Result [facility] Department [place] [address] * (ABNORMAL) Basic metabolic panel (12/02/2023 6:26 PM CDT) Sodium 142 135 - 145 mmol/L Potassium, pl 4.2 3.3 - 4.9 mmol/L [facility] Chloride 111(H) 97 - 110 mmol/L [facility] CO2 26 22 - 32 mmol/L [facility] Anion gap 5 2 - 15 mmol/L [facility] BUN 14 6 - 25 mg/dL [facility] Creatinine 0.63 0.60 - 1.10 mg/dL [facility] Glucose 148 70 - 199 mg/dL [facility] Comment: Interpretive Data Fasting glucose >/= [...] interpretive data was last revised 2022. Calcium 8.1(L) 8.5 - 10.3 mg/dL [facility] Blood 12/02/2023 6:26 PM CDT 12/02/2023 6:39 PM CDT Latisha Retana FIELD SERVICE REP LAB BLOOD ORDERABLES Fin al [facility] [place] [address] * (ABNORMAL) CBC without differential (12/02/2023 6:26 PM CDT) Pathologist [facility] WBC 15.0(H) 3.8 - 9.9 K/cumm Hgb 11.3(L) 11.9 - 15.5 g/dL [facility] Hct 34.4(L) 35.6 - 45.5 % [facility] Plt 249 150 - 400 K/cumm [facility] MPV 9.7 9.1 - 12.3 fL [facility] RBC 3.93 3.90 - 5.20 M/cumm [facility] MCV 87.5 81.3 - 96.4 fL [facility] MCH 28.8 27.1 - 33.3 pg [facility] MCHC 32.8 32.3 - 35.7 g/dL [facility] RDW CV 15.2(H) 11.1 - 14.9 % [facility] RDW SD 48.8(H) 35.7 - 48.1 fL [facility] NRBC abs 0.00 0.00 - 0.01 K/cumm [facility] Blood 12/02/2023 6:26 PM CDT 12/02/2023 6:41 PM CDT us Latisha Retana FIELD SERVICE REP LAB BLOOD ORDERABLES Fin al Result [facility] Department [place] [address] * (ABNORMAL) POC Blood Gas and Chemistries, Arterial - (12/02/2023 4:29 PM CDT) pH, Art POC 7.38 7.35 - 7.45 pCO2, Art POC 43 35 - 45 mmHg [facility] pO2, Art POC 190(H) 83 - 108 mmHg [facility] Na, POC 140 135 - 145 mmol/L [facility] K POC 3.7 3.3 - 4.9 mmol/L [facility] Comment: Interpretive Data Not all point of care methods assess for hemolysis. Confirm with instrument and retest K+ if not consistent with clinical signs and symptoms. Current Interpretive Data was last revised on 2023. Cl, POC 108 97 - 110 mmol/L [facility] Ionized Ca, POC 4.36(L) 4.50 - 5.10 mg/dL [facility] Glucose, POC 128 70 - 199 mg/dL [facility] Lactate, POC 1.6 0.7 - 2.2 mmol/L [facility] SO2 (alexsander) arterial 100(H) 90 - 95 % [facility] Base excess, POC 0.1 mmol/L [facility] HCO3, Art POC 25 20 - 30 mmol/L [facility] Hct, POC 35.0(L) 36.3 - 45.3 % [facility] O2 Sat, Art POC (Calc) 100 % [facility] Total Hb, POC 11.7(L) 11.9 - 15.5 g/dL [facility] Blood 12/02/2023 4:29 PM CDT 12/02/2023 4:29 PM CDT us Jeremy Michelle MD LAB POCT ORDERABLES - DEVICE Final Result Performing Organization Address City/State/[facility] Co de Phone Number [facility] [place] [address] * XR Scoliosis Ap Lat (12/02/2023 4:20 PM CDT) Anatomical Region Laterality Modality Spine N/A Computed Radiogr aphy 12/02/2023 4:28 PM CDT Impressions 12/02/2023 4:28 PM CDT 1. ??Intraoperative radiographs demonstrating ongoing posterior instrumented spinal fusion revision. Electronically signed by: Edgar Pichardo M.D. Narrative 12/02/2023 4:28 PM CDT EXAMINATION: XR SCOLIOSIS AP AND LATERAL HISTORY: ??Intraop FINDINGS: The khanna and lateral views of the spine are compared to radiographs 08/14/2023. Intraoperative radiographs demonstrate ongoing posterior instrumented spinal fusion revision spanning the lower thoracic spine to the pelvis. ??There are radiopaque markers related to anterior instrumented lumbar fusion. ??Bilateral hip arthroplasties. ??Bedoya catheter/temperature probe in place. ??Pacemaker. ??Multiple monitoring leads and surgical devices overlie the patient. Procedure Note Edgar Pichardo MD - 12/02/2023 EXAMINATION: XR SCOLIOSIS AP AND LATERAL HISTORY: Intraop FINDINGS: The khanna and lateral views of the spine are compared to radiographs 08/14/2023. Intraoperative radiographs demonstrate ongoing posterior instrumented spinal fusion revision spanning the lower thoracic spine to the pelvis. There are radiopaque markers related to anterior instrumented lumbar fusion. Bilateral hip arthroplasties. Bedoya catheter/temperature probe in place. Pacemaker. Multiple monitoring leads and surgical devices overlie the patient. IMPRESSION: 1. Intraoperative radiographs demonstrating ongoing posterior instrumented spinal fusion revision. Electronically signed by: Edgar Pichardo M.D. Jeremy Michelle MD IMG XR PROCEDURES Fi nal Result * FL Fluoroscopy < 1 Hour (12/02/2023 3:02 PM CDT) Narrative [facility] - 12/02/2023 3:04 PM CDT The images from this study are not interpreted by Radiology. ??Please refer to the physician's procedure / OR operative note. Jeremy Michelle MD IM FLUOROSCOPY PROC EDURES Final Result [facility] * (ABNORMAL) Tissue aerobic and anaerobic culture and gram stain Tissue Back (12/02/2023 2:07 PM CDT) Direct Specimen Exam Stain: No polymorphonuclear leukocytes seen. No organisms seen. Report Final Report: Rare Staphylococcus epidermidis (.) [facility] Organism STAPHYLOCOCCUS EPIDERMIDIS [facility] Tissue (Back) 12/02/2023 2:0 7 PM CDT 12/02/2023 8:46 PM CDT Narrative [facility] - 01/06/2024 4:53 PM CDT L1 Pedicle Specimen collected in the operating room. Testing performed by [facility] ([phone]) Specimens submitted from normally sterile body sites will have all bacterial morphotypes identified. Specimens that contain grossly mixed lenka and/or are from body sites that are not normally sterile will be examined for Staphylococcus aureus, Pseudomonas aeruginosa, beta-hemolytic strep, vancomycin-resistant Enterococcus, Bacteroides, Parabacteroides, Clostridium perfringens and fungus. If any of these are isolated, the organism will be reported. Current interpretive data was last revised on 2019. Organism Antibiotic Method Susceptibility Staphylococcus epidermidis Daptomycin (JIM) (JIM) INTERPRETATION Susceptible Staphylococcus epidermidis Doxycycline (JIM) INTERPRETATION Susceptible Staphylococcus epidermidis Linezolid (JIM) INTERPRETATION Susceptible Staphylococcus epidermidis Trimethoprim with Sulfamethoxazole (JIM) INTERPRETATION Susceptible Staphylococcus epidermidis Clindamycin (JIM) INTERPRETATION Susceptible Staphylococcus epidermidis Erythromycin (JIM) INTERPRETATION Resistant Staphylococcus epidermidis Vancomycin (JIM) INTERPRETATION Susceptible Staphylococcus epidermidis Oxacillin (JIM) INTERPRETATION Susceptible Staphylococcus epidermidis Cefazolin (JIM) INTERPRETATION Susceptible Staphylococcus epidermidis Ceftriaxone (JIM) INTERPRETATION Susceptible us Jeremy Michelle MD LAB MI[facility]OLOGY [facility] ORDERABLES Final Result [facility] [place] [address] * (ABNORMAL) POC Blood Gas and Chemistries, Arterial - (12/02/2023 12:52 PM CDT) pH, Art POC 7.44 7.35 - 7.45 pCO2, Art POC 41 35 - 45 mmHg [facility] pO2, Art POC 185(H) 83 - 108 mmHg [facility] Na, POC 142 135 - 145 mmol/L [facility] K POC 2.6(L) 3.3 - 4.9 mmol/L [facility] Comment: Interpretive Data Not all point of care methods assess for hemolysis. Confirm with instrument and retest K+ if not consistent with clinical signs and symptoms. Current Interpretive Data was last revised on 2023. Cl, POC 105 97 - 110 mmol/L [facility] Ionized Ca, POC 4.23(L) 4.50 - 5.10 mg/dL [facility] Glucose, POC 110 70 - 199 mg/dL [facility] Lactate, POC 1.6 0.7 - 2.2 mmol/L [facility] SO2 (alexsander) arterial 100(H) 90 - 95 % [facility] Base excess, POC 3.3 mmol/L [facility] HCO3, Art POC 28 20 - 30 mmol/L [facility] Hct, POC 39.0 36.3 - 45.3 % [facility] O2 Sat, Art POC (Calc) 100 % [facility] Total Hb, POC 13.1 11.9 - 15.5 g/dL [facility] Blood 12/02/2023 12:5 2 PM CDT 12/02/2023 12:52 PM CDT Jeremy Michelle MD LAB POCT ORDERABLES - DEVICE Final Result Performing Organization Address [facility] Co de Phone Number [facility] [place] [employer] [place] [address] * Type and screen (12/02/2023 8:24 AM CDT) ABO Rh A Negative Jake, indirect Negative [facility] Blood 12/02/2023 8:24 AM CDT 12/02/2023 8:34 AM CDT Narrative [facility] - 12/02/2023 9:26 AM CDT Has the patient had Daratumumab or Isatuximab in the past 6 months?->Unknown Steve Hedrick MD LAB BLOOD BANK TEST ORDERA BLES Final Result Performing Organization Address [facility] Co de Phone Number [facility] [place] [employer] [place] [place] [address] documented in this encounter Visit Diagnoses Diagnosis 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 Paroxysmal atrial fibrillation (CMS/HCC) (HCC) Atrial fibrillation Apical variant hypertrophic cardiomyopathy (HCC) Atrial fibrillation with RVR (CMS/HCC) (HCC) Essential hypertension Unspecified essential hypertension Dyslipidemia Other and unspecified hyperlipidemia ICD (implantable cardioverter-defibrillator), dual, in situ Major depressive disorder, single episode, moderate (HCC) Major depressive disorder, single episode, moderate Paroxysmal atrial fibrillation (CMS/HCC) (HCC) Atrial fibrillation Chronic nonseasonal allergic rhinitis due to pollen documented in this encounter Admitting Diagnoses Diagnosis 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 documented in this encounter Administered Medications Inactive Administered Medications - up to 3 most recent administrations Medication Order MAR Action Action Date Dose Rate Site acetaminophen (TYLENOL) tablet 1,000 mg 1,000 mg, oral, Once, On Thu12/02/23 at 0800, For 1 dose, Pre-Op, Indications: PainIndications:Pain Given 12/02/2023 7:49 AM CDT 1,000 mg acetaminophen (TYLENOL) tablet 1,000 mg 1,000 mg, oral, Every 6 hours scheduled, First dose on Thu12/02/23 at 1845, Phase I & Post-op Floor, Indications: Pain, PainIndications:Pain,Pain Given 12/03/2023 1:53 AM CDT 1,000 mg Given 12/02/2023 8:01 PM CDT 1,000 mg acetaminophen (TYLENOL) tablet 1,000 mg 1,000 mg, oral, Every 6 hours scheduled, First dose (after last modification) on Thu12/04/23 at 2030, Indications: Pain, PainIndications:Pain,Pain Given 12/14/2023 2:01 PM CDT 1,000 mg Given 12/14/2023 8:50 AM CDT 1,000 mg Given 12/14/2023 3:02 AM CDT 1,000 mg acetaminophen (TYLENOL) tablet 500 mg 500 mg, oral, Every 6 hours PRN, 1st line for pain, Starting on Thu12/03/23 at 0615, Phase I & Post-op Floor, Indications: Pain, PainIndications:Pain,Pain Given 12/04/2023 9:24 AM CDT 500 mg Given 12/04/2023 4:10 AM CDT 500 mg Given 12/03/2023 5:53 PM CDT 500 mg alendronate (FOSAMAX) weekly tablet 70 mg 70 mg, oral, Every 7 days, First dose on Thu12/07/23 at 0000, Give with at least 8 ounces of plain water first thing in the morning. Patient should be instructed to stay upright (not to lie down) for at least 30 minutes and until after first food of the day (to reduce esophageal irritation)., Indications: Post-Menopausal OsteoporosisIndications:Post-Menopausal Osteoporosis Given 12/14/2023 12:52 AM CDT 70 mg Given 12/06/2023 10:30 PM CDT 70 mg ALPRAZolam (XANAX) tablet 0.25 mg 0.25 mg, oral, Nightly PRN, anxiety, Starting on Thu12/02/23 at 2019, Indications: anxietyIndications:anxiety Given 12/03/2023 12:38 PM CDT 0.25 mg amiodarone (NEXTERONE) 150 mg/100 mL (1.5 mg/mL) in dextrose (premix) - ADS Override Pull Starting on Thu12/03/23 at 2125, For 1 dose, Created by cabinet override Use filter 0.22 micron or less amiodarone (NEXTERONE) 150 mg/100 mL (1.5 mg/mL) in dextrose (premix) 150 mg 150 mg, intravenous, at 600 mL/hr, Administer over 10 Minutes, Once, On Thu12/03/23 at 2200, For 1 dose, Use filter 0.22 micron or less New Bag 12/03/2023 9:29 PM CDT 150 mg 600 mL/hr amiodarone (NEXTERONE) 150 mg/100 mL (1.5 mg/mL) in dextrose (premix) 150 mg 150 mg, intravenous, at 600 mL/hr, Administer over 10 Minutes, Once, On Thu12/04/23 at 2145, For 1 dose, Use filter 0.22 micron or less New Bag 12/04/2023 9:17 PM CDT 150 mg 600 mL/hr amiodarone (NEXTERONE) 150 mg/100 mL (1.5 mg/mL) in dextrose (premix) 150 mg 150 mg, intravenous, at 600 mL/hr, Administer over 10 Minutes, Once, On Thu12/04/23 at 2215, For 1 dose, Use filter 0.22 micron or less New Bag 12/04/2023 9:45 PM CDT 150 mg 600 mL/hr amiodarone (NEXTERONE) 150 mg/100 mL (1.5 mg/mL) in dextrose (premix) 150 mg 150 mg, intravenous, at 600 mL/hr, Administer over 10 Minutes, Once, On Thu12/07/23 at 0130, For 1 dose, Use filter 0.22 micron or less New Bag 12/07/2023 1:02 AM CDT 150 mg 600 mL/hr amiodarone (PACERONE) tablet 200 mg 200 mg, oral, Daily, First dose on Thu12/15/23 at 0900 amiodarone (PACERONE) tablet 400 mg 400 mg, oral, 2 times daily, First dose on Thu12/04/23 at 2100 Given 12/04/2023 9:01 PM CDT 400 mg amiodarone (PACERONE) tablet 400 mg 400 mg, oral, 2 times daily, First dose on Thu12/06/23 at 0900, For 7 days Given 12/06/2023 8:24 PM CDT 400 mg Given 12/06/2023 10:00 AM CDT 400 mg amiodarone (PACERONE) tablet 400 mg 400 mg, oral, 3 times daily, First dose (after last modification) on Thu12/07/23 at 0900, For 5 days Given 12/11/2023 9:38 PM CDT 400 mg Given 12/11/2023 4:13 PM CDT 400 mg Given 12/11/2023 8:51 AM CDT 400 mg amiodarone (PACERONE) tablet 400 mg 400 mg, oral, 2 times daily, First dose on Thu12/12/23 at 0900, For 3 days Given 12/14/2023 8:50 AM CDT 400 mg Given 12/13/2023 9:06 PM CDT 400 mg Given 12/13/2023 8:47 AM CDT 400 mg amiodarone in dextrose (NEXTERONE) 360 mg/200 mL (1.8 mg/mL) infusion (premix) - ADS Override Pull Starting on Thu12/03/23 at 2125, For 1 dose, Created by cabinet override Use filter 0.22 micron or less amiodarone in dextrose (NEXTERONE) 360 mg/200 mL (1.8 mg/mL) infusion (premix) 1 mg/min (33.3333 mL/hr, rounded to 33.3 mL/hr), 1.8 mg/mL, intravenous, Continuous, Starting on Thu12/03/23 at 2200, Until Thu12/04/23 at 0337, Use filter 0.22 micron or less, Routine Rate/Dose Verify 12/04/2023 3:00 AM CDT 1 mg/min 33.3 mL/hr Rate/Dose Verify 12/04/2023 2:00 AM CDT 1 mg/min 33.3 mL /hr Rate/Dose Verify 12/04/2023 1:00 AM CDT 1 mg/min 33.3 mL /hr amiodarone in dextrose (NEXTERONE) 360 mg/200 mL (1.8 mg/mL) infusion (premix) 0.5 mg/min (16.6667 mL/hr, rounded to 16.67 mL/hr), 1.8 mg/mL, intravenous, Continuous, Starting on Thu12/04/23 at 0338, Until Thu12/04/23 at 2134, Use filter 0.22 micron or less, Routine Rate/Dose Verify 12/04/2023 10:00 PM CDT 0.5 mg/min 16.67 mL/hr Rate/Dose Verify 12/04/2023 9:00 PM CDT 0.5 mg/min 16.67 m L/hr Rate/Dose Verify 12/04/2023 8:00 PM CDT 0.5 mg/min 16.67 m L/hr amiodarone in dextrose (NEXTERONE) 360 mg/200 mL (1.8 mg/mL) infusion (premix) 1 mg/min (33.3333 mL/hr, rounded to 33.3 mL/hr), 1.8 mg/mL, intravenous, Continuous, Starting on Thu12/04/23 at 2245, Until Thu12/05/23 at 0407, Use filter 0.22 micron or less, Routine Rate/Dose Verify 12/05/2023 3:00 AM CDT 1 mg/min 33.3 mL/hr Rate/Dose Verify 12/05/2023 2:00 AM CDT 1 mg/min 33.3 mL /hr Rate/Dose Verify 12/05/2023 1:00 AM CDT 1 mg/min 33.3 mL /hr amiodarone in dextrose (NEXTERONE) 360 mg/200 mL (1.8 mg/mL) infusion (premix) 0.5 mg/min (16.6667 mL/hr, rounded to 16.67 mL/hr), 1.8 mg/mL, intravenous, Continuous, Starting on 12/05/23 at 0408, Until 12/05/23 at 2159, Use filter 0.22 micron or less, Routine New Bag 12/05/2023 8:57 PM CDT 0.5 mg/min 16.67 mL/hr Rate/Dose Verify 12/05/2023 8:00 PM CDT 0.5 mg/min 16.67 m L/hr Rate/Dose Verify 12/05/2023 7:00 PM CDT 0.5 mg/min 16.67 m L/hr amiodarone in dextrose (NEXTERONE) 360 mg/200 mL (1.8 mg/mL) infusion (premix) 0.5 mg/min (16.6667 mL/hr, rounded to 16.67 mL/hr), 1.8 mg/mL, intravenous, Continuous, Starting on 12/05/23 at 2200, Until 12/06/23 at 0942, Use filter 0.22 micron or less, Routine Rate/Dose Verify 12/06/2023 9:00 AM CDT 0.5 mg/min 16.67 mL/hr Rate/Dose Verify 12/06/2023 8:00 AM CDT 0.5 mg/min 16.67 m L/hr Rate/Dose Verify 12/06/2023 7:52 AM CDT 0.5 mg/min 16.67 m L/hr aspirin tablet 325 mg 325 mg, oral, Once, On [place] 12/03/23 at 2145, For 1 dose Given 12/03/2023 9:14 PM CDT 325 mg atorvastatin (LIPITOR) tablet 40 mg 40 mg, oral, Nightly, First dose on 12/07/23 at 2100 Given 12/13/2023 9:05 PM CDT 40 mg Given 12/12/2023 8:55 PM CDT 40 mg Given 12/11/2023 9:39 PM CDT 40 mg baclofen (LIORESAL) tablet 2.5 mg 2.5 mg, oral, 3 times daily with meals, First dose on Thu12/04/23 at 2100 Given 12/05/2023 6:21 PM CDT 2.5 mg Given 12/05/2023 12:10 PM CDT 2.5 mg Given 12/05/2023 8:41 AM CDT 2.5 mg baclofen (LIORESAL) tablet 5 mg 5 mg, oral, Every 8 hours scheduled, First dose on Thu12/02/23 at 2200, Indications: Muscle spasmIndications:Muscle spasm Given 12/03/2023 12:10 PM CDT 5 mg Given 12/02/2023 11:32 PM CDT 5 mg baclofen (LIORESAL) tablet 5 mg 5 mg, oral, 3 times daily PRN, muscle spasms, Starting on Thu12/03/23 at 1500, Indications: Muscle spasmIndications:Muscle spasm Given 12/04/2023 9:24 AM CDT 5 mg bisacodyL (DULCOLAX) suppository 10 mg 10 mg, rectal, Daily, First dose on Thu12/02/23 at 2100, Hold for diarrhea, Indications: constipationIndications:constipation Given 12/14/2023 8:51 AM CDT 10 mg Given 12/05/2023 8:41 AM CDT 10 mg Given 12/04/2023 9:20 AM CDT 10 mg calcium gluconate 3 g in sodium chloride 0.9% 100 mL IVPB 3 g, intravenous, at 130 mL/hr, Administer over 60 Minutes, Once, On [place] 12/03/23 at 2245, For 1 dose, Indications: hypocalcemiaIndications:hypocalc emia New Bag 12/03/2023 11:28 PM CDT 3 g 130 mL/hr calcium gluconate 3 g in sodium chloride 0.9% 100 mL IVPB 3 g, intravenous, at 130 mL/hr, Administer over 60 Minutes, Once, On [facility] 12/05/23 at 0900, For 1 dose, Indications: hypocalcemiaIndications:hypocalc emia New Bag 12/05/2023 9:38 AM CDT 3 g 130 mL/hr calcium gluconate 3 g in sodium chloride 0.9% 100 mL IVPB 3 g, intravenous, at 130 mL/hr, Administer over 60 Minutes, Once, On [place] 12/06/23 at 2200, For 1 dose, Indications: hypocalcemiaIndications:hypocalc emia New Bag 12/06/2023 10:39 PM CDT 3 g 130 mL/hr Carrier Fluids for Secondary Infusion - 0.9% Sodium Chloride 30 mL, intravenous, As needed, For priming tubing and/or flushing, Starting on Thu12/02/23 at 2019, 0-250 ml/hr to flush line after IV infusions when no maintenance IV ordered. Infuse 30mL at the same rate as the secondary infusion. Run as primary IV, not intended for KVO. Given 12/03/2023 8:57 PM CDT 30 mL ceFAZolin (ANCEF) 1 gram/10 mL in sterile water (premix) 1,000 mg 1,000 mg, intravenous, at 200 mL/hr, Administer over 3 Minutes, Every 8 hours, First dose on Thu12/02/23 at 2200, For 3 doses, Beginning 8 hours after last sarah-procedural dose., Indications: Prophylaxis, SurgicalIndications:Prophylaxis, Surgical Given 12/03/2023 3:05 PM CDT 1,000 mg 200 mL/hr Given 12/03/2023 6:21 AM CDT 1,000 mg 200 mL/hr Given 12/02/2023 10:30 PM CDT 1,000 mg 200 mL/hr cholecalciferol (VITAMIN D-3) capsule 2,000 Units 2,000 Units, oral, Every morning, First dose on Thu12/03/23 at 0900, Each capsule contains 1,000 units (25 mcg) of cholecalciferol., Indications: supplementIndications:supplement Given 12/14/2023 8:50 AM CDT 2,000 Units Given 12/13/2023 8:47 AM CDT 2,000 Units Given 12/12/2023 8:29 AM CDT 2,000 Units dextrose 5% and Lactated Ringer's infusion 25 mL/hr, intravenous, Continuous, Starting on Thu12/04/23 at 0015 Rate/Dose Verify 12/04/2023 4:26 PM CDT 25 mL/hr 25 mL/hr Rate/Dose Verify 12/04/2023 5:00 AM CDT 25 mL/hr 25 mL/h r Rate/Dose Verify 12/04/2023 4:00 AM CDT 25 mL/hr 25 mL/h r dextrose 5% and Lactated Ringer's infusion 25 mL/hr, intravenous, Continuous, Starting on Thu12/04/23 at 2300 New Bag 12/06/2023 7:24 AM CDT 25 mL/hr 25 mL/hr Rate/Dose Verify 12/06/2023 6:00 AM CDT 25 mL/hr 25 mL/h r Rate/Dose Verify 12/06/2023 5:00 AM CDT 25 mL/hr 25 mL/h r dextrose 5% and sodium chloride 0.9% infusion (premix) 75 mL/hr, intravenous, Continuous, Starting on Thu12/02/23 at 1845, Phase I & Post-op Floor, Discontinue when tolerating PO (500 mL in 8 hours). New Bag 12/02/2023 6:51 PM CDT 75 mL/hr 75 mL/hr dilTIAZem XR (CARDIZEM CD,DILACOR XR) 24 hour capsule 180 mg 180 mg, oral, Every morning, First dose on Thu12/03/23 at 0900, Do not crush, chew, cut, dissolve, open or otherwise manipulate tablet/capsule., Indications: A-fib, On hold since Thu12/04/2023 at 0053 until manually unheldIndications:A-fib Given 12/03/2023 9:02 AM CDT 180 mg doxepin (SINEquan) capsule 25 mg 25 mg, oral, Nightly PRN, sleep, Starting on Thu12/02/23 at 2019, Indications: sleepIndications:sleep Given 12/06/2023 8:24 PM CDT 25 mg Given 12/04/2023 9:02 PM CDT [address] (CYMBALTA) extended release capsule 60 mg 60 mg, oral, Every morning, First dose on Thu12/03/23 at 0900, Capsule may be opened and contents mixed with applesauce or apple juice ONLY. Do not crush or chew capsule, Indications: Anxiety with DepressionIndications:Anxiety with Depression Given 12/14/2023 8:5 1 AM CDT 60 mg Given 12/13/2023 8:47 AM CDT 60 mg Given 12/12/2023 8:29 AM CDT 60 mg enoxaparin (LOVENOX) syringe 40 mg 40 mg, subcutaneous, Daily (for enoxaparin), First dose on Thu12/04/23 at 2100, Indications: Deep Vein Thrombosis PreventionIndications:Deep Vein Thrombosis Prevention Given 12/13/2023 9:07 PM CDT 40 mg Left Lower Abdomen Given 12/12/2023 8:55 PM CDT 40 mg Le ft Lower Abdomen Given 12/11/2023 9:38 PM CDT 40 mg Le ft Lower Abdomen furosemide (LASIX) tablet 20 mg 20 mg, oral, Once, On Thu12/03/23 at 1530, For 1 dose Given 12/03/2023 3:05 PM CDT 20 mg furosemide (LASIX) tablet 20 mg 20 mg, oral, 2 times daily, First dose (after last modification) on Thu12/04/23 at 2100, Indications: EdemaIndications:Edema Given 12/04/2023 9:01 PM CDT 20 mg furosemide (LASIX) tablet 40 mg 40 mg, oral, 2 times daily, First dose on Thu12/02/23 at 2100, Indications: EdemaIndications:Edema Given 12/02/2023 10:00 PM CDT 40 mg furosemide (LASIX) tablet 40 mg 40 mg, oral, 2 times daily (for diuretics), First dose on Thu12/09/23 at 1200 Given 12/14/2023 8:50 AM CDT 40 mg Given 12/13/2023 3:05 PM CDT 40 mg Given 12/13/2023 8:47 AM CDT 40 mg HYDROmorphone (DILAUDID) 0.5 mg/0.5 mL injection - ADS Override Pull Starting on Thu12/03/23 at 2122, For 1 dose, Created by cabinet override HYDROmorphone (DILAUDID) injection 0.2 mg 0.2 mg, intravenous, Administer over 2 Minutes, Once, On Thu12/03/23 at 1915, For 1 dose Given 12/03/2023 6:40 PM CDT 0.2 mg HYDROmorphone (DILAUDID) injection 0.2 mg 0.2 mg, intravenous, Administer over 2 Minutes, Once, On Thu12/04/23 at 1230, For 1 dose Given 12/04/2023 12:00 PM CDT 0.2 mg HYDROmorphone (DILAUDID) injection 0.2 mg 0.2 mg, intravenous, Administer over 2 Minutes, Every 4 hours PRN, breakthrough pain, Starting on Thu12/04/23 at 1822 Given 12/09/2023 6:41 AM CDT 0.2 mg Given 12/07/2023 2:12 AM CDT 0.2 mg Given 12/06/2023 10:30 PM CDT 0.2 mg HYDROmorphone (DILAUDID) injection 0.5 mg 0.5 mg, intravenous, Administer over 2 Minutes, Once, On [place] 12/03/23 at 2200, For 1 dose Given 12/03/2023 9:34 PM CDT 0.5 mg HYDROmorphone in 0.9% sodium chloride (DILAUDID) 20 mg/100 mL (0.2 mg/mL) (premix) Continuous: none, RADIOLOGY ASST dose: 0.2 mg, RADIOLOGY ASST lockout: 10 Minutes, 1 hour limit: 1.2 mg, intravenous, Continuous, Starting on Thu12/02/23 at 1845, Until Thu12/03/23 at 1136, 100 mL, Indications: Pain, RoutineIndications:Pain New Syringe/Cartridge 12/02/2023 6:51 PM CDT ketorolac (TORADOL) 15 mg/mL injection 15 mg 15 mg, intravenous, Once, On [place] 12/03/23 at 2000, For 1 dose, For Adult IV push, administer over 15 seconds Given 12/03/2023 8:31 PM CDT 15 mg Lactated Ringer's (LR) bolus 1,000 mL 1,000 mL, intravenous, Once, On [place] 12/03/23 at 2315, For 1 dose New Bag 12/03/2023 10:37 PM CDT 1,000 mL Lactated Ringer's (LR) bolus 1,000 mL 1,000 mL, intravenous, Once, On Thu12/07/23 at 2345, For 1 dose New Bag 12/07/2023 11:11 PM CDT 1,000 mL Lactated Ringer's (LR) bolus 500 mL 500 mL, intravenous, Once, On 12/05/23 at 1230, For 1 dose New Bag 12/05/2023 12:10 PM CDT 500 mL Lactated Ringer's (LR) infusion - ADS Override Pull Starting on Thu12/03/23 at 2233, For 1 dose, Created by cabinet override Lactated Ringer's (LR) infusion 30 mL/hr, intravenous, Continuous, Starting on Thu12/02/23 at 0800, Pre-Op Rate/Dose Verify 12/02/2023 9:07 AM CDT 30 mL/hr New Bag 12/02/2023 8:03 AM CDT 30 mL/hr 30 mL/hr lidocaine (ASPERCREME) 4 % patch 2 patch 2 patch, transdermal, Administer over 12 Hours, Daily, First dose on [place] 12/06/23 at 0900, Apply to affected area: back Medication Applied 12/14/2023 8:51 AM CDT 2 patches Other (Comment) Medication Applied 12/13/2023 8:57 AM CDT 2 patches Back Medication Applied 12/11/2023 8:51 AM CDT 2 patches Back LORazepam (ATIVAN) 2 mg/mL injection - ADS Override Pull Starting on [facility] 12/03/23 at 2130, For 1 dose, Created by cabinet override For IV administration, draw up ordered admin dose/volume, then dilute with equal volume of 0.9% sodium chloride and administer total volume to patient. Do not exceed a rate of 2 mg/minute. LORazepam (ATIVAN) injection 2 mg 2 mg, intravenous, Once, On [facility] 12/03/23 at 2215, For 1 dose, For IV administration, draw up ordered admin dose/volume, then dilute with equal volume of 0.9% sodium chloride and administer total volume to patient. Do not exceed a rate of 2 mg/minute. Given 12/03/2023 9:32 PM CDT 1 mg magnesium sulfate 2 g/50 mL in water (premix) 2 g 2 g, intravenous, Administer over 60 Minutes, Once, On [facility] 12/03/23 at 2130, For 1 dose New Bag 12/03/2023 8:57 PM CDT 2 g magnesium sulfate 2 g/50 mL in water (premix) 2 g 2 g, intravenous, Administer over 60 Minutes, Once, On [facility] 12/03/23 at 2245, For 1 dose New Bag 12/03/2023 10:26 PM CDT 2 g magnesium sulfate 2 g/50 mL in water (premix) 2 g 2 g, intravenous, Administer over 60 Minutes, Once, On [facility] 12/05/23 at 1315, For 1 dose New Bag 12/05/2023 1:16 PM CDT 2 g magnesium sulfate 2 g/50 mL in water (premix) 2 g 2 g, intravenous, Administer over 60 Minutes, Once, On Thu12/06/23 at 0900, For 1 dose New Bag 12/06/2023 9:52 AM CDT 2 g magnesium sulfate 2 g/50 mL in water (premix) 2 g 2 g, intravenous, Administer over 60 Minutes, Once, On Thu12/07/23 at 0130, For 1 dose New Bag 12/07/2023 1:02 AM CDT 2 g magnesium sulfate 4 g/100 mL in water (premix) 4 g 4 g, intravenous, Administer over 90 Minutes, Once, On Thu12/04/23 at 2245, For 1 dose New Bag 12/04/2023 10:37 PM CDT 4 g methocarbamoL (ROBAXIN) tablet 500 mg 500 mg, oral, Every 8 hours, First dose on Thu12/06/23 at 0845 Given 12/07/2023 12:36 AM CDT 500 mg Given 12/06/2023 4:56 PM CDT 500 mg Given 12/06/2023 9:50 AM CDT 500 mg methocarbamoL (ROBAXIN) tablet 750 mg 750 mg, oral, 3 times daily, First dose on Thu12/04/23 at 1600 Given 12/04/2023 9:02 PM CDT 750 mg Given 12/04/2023 3:25 PM CDT 750 mg methocarbamoL (ROBAXIN) tablet 750 mg 750 mg, oral, Every 8 hours, First dose (after last modification) on Thu12/07/23 at 0845 Given 12/14/2023 8:50 AM CDT 750 mg Given 12/14/2023 12:52 AM CDT 750 mg Given 12/13/2023 4:41 PM CDT 750 mg metoprolol tartrate (LOPRESSOR) immediate release tablet 25 mg 25 mg, oral, 2 times daily, First dose on Thu12/02/23 at 2100, Indications: Atrial Arrhythmia, hypertensionIndications:Atrial Arrhythmia,hypertension Given 12/03/2023 8:40 PM CDT 25 mg Given 12/03/2023 3:24 PM CDT 25 mg Given 12/02/2023 10:00 PM CDT 25 mg metoprolol tartrate (LOPRESSOR) immediate release tablet 25 mg 25 mg, oral, 2 times daily, First dose on Thu12/09/23 at 0900 Given 12/14/2023 8:50 AM CDT 25 mg Given 12/13/2023 9:05 PM CDT 25 mg Given 12/13/2023 8:47 AM CDT 25 mg metoprolol tartrate immediate release capsule 6.25 mg 6.25 mg, oral, 2 times daily, First dose on Thu12/06/23 at 0900, Hold for HR <55, SBP<100 Given 12/06/2023 9:50 AM CDT 6.25 mg multivitamin with folic acid 400 mcg tablet 1 tablet 1 tablet, oral, Daily, First dose on Thu12/02/23 at 2100 Given 12/14/2023 8:51 AM CDT 1 tablet Given 12/13/2023 8:47 AM CDT 1 tablet Given 12/12/2023 8:28 AM CDT 1 tablet nitroglycerin (NITROSTAT) 0.4 mg sublingual tablet - ADS Override Pull Starting on Thu12/03/23 at 2110, For 1 dose, Created by cabinet override nitroglycerin (NITROSTAT) sublingual tablet 0.4 mg 0.4 mg, sublingual, Every 5 min PRN, chest pain, Starting on Thu12/03/23 at 2108, May administer up to 3 doses per episode. Given 12/03/2023 10:26 PM CDT 0.4 m g Given 12/03/2023 9:11 PM CDT 0.4 mg norepinephrine in dextrose 5% (LEVOPHED) 8,000 mcg/250 mL (32 mcg/mL) infusion (premix) 0-2 mcg/kg/min ? 79.4 kg (0-297.75 mL/hr), 32 mcg/mL, intravenous, Titrated, Starting on Thu12/03/23 at 2245, Until Thu12/04/23 at 0044, Initial rate: 0.05 mcg/kg/min, Titrate: Up/Down, Titrate by: 0.01 mcg/kg/min, Every: 2 minutes, Goal: MAP, MAP Goal: 65-75 mmHg, Routine Rate/Dose Change 12/04/2023 12:00 AM CDT 0.1 mcg/kg/min 14.89 mL/hr Rate/Dose Change 12/03/2023 11:00 PM CDT 0.11 mcg/kg/min 1 6.38 mL/hr Rate/Dose Verify 12/03/2023 10:20 PM CDT 0.1 mcg/kg/min 14 .89 mL/hr norepinephrine in dextrose 5% (LEVOPHED) 8,000 mcg/250 mL (32 mcg/mL) infusion (premix) 0-2 mcg/kg/min ? 79.4 kg (0-297.75 mL/hr), 32 mcg/mL, intravenous, Titrated, Starting on Thu12/04/23 at 0115, Until Thu12/04/23 at 0742, Initial rate: 0.05 mcg/kg/min, Titrate: Up/Down, Titrate by: 0.01 mcg/kg/min, Every: 2 minutes, Goal: SBP, SBP Goal: Other (comment) / >120, Routine Rate/Dose Change 12/04/2023 6:24 AM CDT 0.08 mcg/kg/min 11.91 mL/hr Rate/Dose Verify 12/04/2023 6:00 AM CDT 0.06 mcg/kg/min 8. 93 mL/hr Rate/Dose Change 12/04/2023 5:29 AM CDT 0.06 mcg/kg/min 8. 93 mL/hr norepinephrine in dextrose 5% (LEVOPHED) 8,000 mcg/250 mL (32 mcg/mL) infusion (premix) 0-2 mcg/kg/min ? 79.4 kg (0-297.75 mL/hr), 32 mcg/mL, intravenous, Titrated, Starting on Thu12/04/23 at 0815, Until Thu12/04/23 at 1927, Initial rate: 0.05 mcg/kg/min, Titrate: Up/Down, Titrate by: 0.01 mcg/kg/min, Every: 2 minutes, Goal: SBP, SBP Goal: Other (comment) / >120, Routine Rate/Dose Change 12/04/2023 11:48 AM CDT 0.05 mcg/kg/min 7.44 mL/hr Rate/Dose Change 12/04/2023 11:45 AM CDT 0.04 mcg/kg/min 5 .96 mL/hr Rate/Dose Change 12/04/2023 11:40 AM CDT 0.03 mcg/kg/min 4 .47 mL/hr norepinephrine in dextrose 5% (LEVOPHED) 8,000 mcg/250 mL (32 mcg/mL) infusion (premix) 0-0.25 mcg/kg/min ? 79.4 kg (0-37.2188 mL/hr, rounded to 0-37.22 mL/hr), 32 mcg/mL, intravenous, Titrated, Starting on Thu12/04/23 at 2300, Until Thu12/04/23 at 2314, Initial rate: 0.05 mcg/kg/min, Titrate: Up/Down, Titrate by: 0.01 mcg/kg/min, Every: 2 minutes, Goal: SBP, SBP Goal: Other (comment) / >120, Peripheral administration must be through an upper extremity IV in the forearm or upper arm, 20 gauge or larger. For more information on peripheral vasopressor administration see Peripheral Vasopressor Adminstration policy., Routine Rate/Dose Change 12/04/2023 10:58 PM CDT 0.1 mcg/kg/min 14.89 mL/hr Rate/Dose Change 12/04/2023 10:54 PM CDT 0.08 mcg/kg/min 1 1.91 mL/hr Restarted 12/04/2023 10:20 PM CDT 0.05 mcg/kg/min 7.44 mL /hr norepinephrine in dextrose 5% (LEVOPHED) 8,000 mcg/250 mL (32 mcg/mL) infusion (premix) 0-0.25 mcg/kg/min ? 79.4 kg (0-37.2188 mL/hr, rounded to 0-37.22 mL/hr), 32 mcg/mL, intravenous, Titrated, Starting on Thu12/04/23 at 2345, Until Thu12/05/23 at 1201, Initial rate: 0.05 mcg/kg/min, Titrate: Up/Down, Titrate by: 0.01 mcg/kg/min, Every: 2 minutes, Goal: SBP, SBP Goal: Other (comment) / >110, Peripheral administration must be through an upper extremity IV in the forearm or upper arm, 20 gauge or larger. For more information on peripheral vasopressor administration see Peripheral Vasopressor Adminstration policy., Routine Rate/Dose Change 12/05/2023 10:38 AM CDT 0.02 mcg/kg/min 2.98 mL/hr Rate/Dose Change 12/05/2023 10:28 AM CDT 0.04 mcg/kg/min 5 .96 mL/hr Rate/Dose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
--- OUTSIDE RECORDS SUMMARY | 2024-07-12 08:42 | XMS_ITS | Encounter Summary ---
Author Organization [facility] Address [address] [place] [address] Phone Care Team Providers Care Security Director Name Role Phone Enmanuel Gan MD Primary Care Provider [phone] Tg Houston MD Unavailable Guerrero Hunter DPT Unavailable [phone] Guerrero Weiner TEAR DOWN MATCHER Unavailable [phone] Stephen Barth MD Unavailable Karlie Hernandez RN Unavailable [phone] Reason for Visit * Reason Onset Date Comments Follow-up 12/10/2023 Spinal Surgery 12/10/2023 Encounter Details Date Type Department Care Team (Late st Contact Info) Description 12/10/2023 Telephone [facility] Orthopaedic Surgery [facility] Medicine 6th [place] [address] [place] [address] Jeremy Michelle MD [address] [facility] [place] [address] Follow-up; Spinal Surgery Social History Tobacco Use Types Packs/Day Years Used Date Smoking Tobacco: Never Smokeless Tobacco: Never Alcohol Use Standard Drinks/Week Comments Yes 5 (1 standard drink = 0.6 oz pur e alcohol) [facility] Utilities Answer Date Recorded In the [...] often do you attend chur ch or religion services? Never 01/07/2024 Do you belong to [...] any time in the past 12 m ont, were you homeless or living in a [...] on file Legal Sex Female 9:09 PM FOREST OFFICER Gender Identity Not on file Sexual Orientation Lesbian 05/24/2019 9: 06 AM CDT documented as of this encounter Miscellaneous Notes * Telephone Encounter - Cyndie Byers RN - 01/06/2024 12:24 PM CDT Follow up on bone stimulator per the auth and DME assistant portfolio manager: Called [id number] opt 3 [id number] (appeal #) received 12/27 talked to mylene (call ref [id number]) Expeditated appeal-sent to robert still under review from 12/29 She sent to wi to expediated line to see if there was an update that she couldn't see and the denial was still upheld Did not meet criteria from expediated but was sent to a 2nd decision and was still pending on that it determination * Telephone Encounter - Cyndie Byers RN - 12/14/2023 1:47 PM CDT Returned call to patient and discussed her d/c plan. Sounds like home with HH is the plan. Working with DME to get bone stimulator. * Telephone Encounter - Cyndie Byers RN - 12/14/2023 11:51 AM CDT Order for bone stimulator placed. * Telephone Encounter - Cyndie Byers RN - 12/10/2023 4:05 PM CDT Returned call to patient to discuss her TLSO brace and her c/o having to wear it when sitting in a chair. Explained the importance of wearing the brace when upright and out of bed for her benefit andto prevent injury. She is aware she is not to bend, lift or twist. She is aware that it is her right to be able to be comfortable and realizes that she is strongly encouraged to wear it when upright in chair or ambulating but she states she is so uncomfortable in the chair with the brace on she wants to remove it. Informed patient that she can tell staff her wishes and if they have questions theycan call office. Sent message in [employer] to the Nurse and DIETETICS DIRECTOR. documented in this encounter Plan of Treatment [...] documented as of this encounter Care Teams Security Director Relationship Specialty Start Date End Date Enmanuel Gan MD [address] [place] [address] [place] [address] PCP - General Internal Medicine 04/26/20 Tg Housotn MD [address] [place] [address] Consulting Physician Cardiology 07/18/20 Guerrero Hunter, DPT [address] [facility] [address] [place] [address] Physical Therapist Physical Therapy 11/08/20 Guerrero Weiner, [employer] [facility] [address] [facility] [address] [place], [place] [id number] Forepart Reducer Physical Therapy 12/12/20 Stephen Barth MD [address] [place], [place] [id number] Referring Physician Transplant 10/19/23 Karlie Hernandez, RN [address] [facility] [address] [place] [address] SHOP Outpatient Executive Personal Assistant 12/15/23 01/12/24 documented as of this encounter
--- OUTSIDE RECORDS SUMMARY | 2024-07-12 08:43 | XMS_ITS | Encounter Summary ---
Author Organization [facility] Healthcare Address [address] [place] [address] Care Team Providers Care Grade Teacher Name Role Phone Enmanuel Gan MD Primary Care Provider [phone] Tg Houston MD Unavailable [phone] Guerrero Hunter DPT Unavailable [phone] Guerrero Weiner MANAGER VOICE Unavailable [phone] Reason for Referral * Diagnostic Imaging (Routine) - Closed Specialty Diagnoses / Procedures Referred By Contac t Referred To Contact Diagnoses Facet arthritis of lumbar region Procedures XR Scoliosis 6 or More Views Jeremy Michelle MD [address] [place] [address] Phone: tel: fax: [facility] Referral ID Status Reason Start Date Expiration Date Visits Re quested Visits Authorized [id number] Closed 07/10/2023 08/08/2024 1 1 GE PUMPER Reason for Visit * Diagnostic Imaging (Routine) - Closed Specialty Diagnoses / Procedures Referred By Contac t Referred To Contact Diagnoses Facet arthritis of lumbar region Procedures XR Scoliosis 6 or More Views Jeremy Michelle MD [address] [place] [address] Phone: tel: fax: [facility] Referral ID Status Reason Start Date Expiration Date Visits Re quested Visits Authorized [id number] Closed 07/10/2023 08/08/2024 1 1 Encounter Details Date Type Department Care Team (Latest Contact Info) Description 08/04/2023 7:45 AM DREDGE PUMPER - 08/04/2023 11:59 PM DREDGE PUMPER Hospital Encounter [facility] [address] [place] [id number] Facet arthritis of lumbar region Discharge Disposition: Discharge to home or self care Social History Tobacco Use Types Packs/Day Years Used Date Smoking Tobacco: Never Smokeless Tobacco: Never Alcohol Use Standard Drinks/Week Comments Yes 5 (1 standard drink = 0.6 oz pur e alcohol) Social Connection and Isolat ion Panel [NHANES] Answer Date Recorded In a typical week, how many times do you talk on the phone with family, friends, or neighbors? More than three times a week 07/30/2020 How often do you get togethe r with friends or relatives? Twice a week 07/30/2020 How often do you attend chur ch or jain services? Never 07/30/2020 Do you belong to any clubs o r organizations such as shinto groups, unions, fraternal or athletic groups, or school groups? No 07/30/2020 How often do you attend meet ings of the clubs or organizations you belong to? Never 07/30/2020 Are you , , di vorced, , never , or living with a partner? 07/30/2020 AUDIT-C Answer Date Recorded Q1: How often do you have a drink containing alcohol? 4 or more times a week 02/10/2023 Q2: How many drinks containi ng alcohol do you have on a typical day when you are drinking? 1 or 2 3 Frequency of Binge Drinking Not on file 01/24 Overall Financial Resource Strain (CARDIA) Answe r Date Recorded How hard is it for you to pa y for the very basics like food, housing, medical care, and heating? Not hard at all 07/30/2020 Hunger Vital Sign Answer Date Recorded Within the past 12 months, y ou worried that your food would run out before you got the money to buy more. Never true 07/30/19 21 Within the past 12 months, t he food you bought just didn't last and you didn't have money to get more. Never true 07/30/2020 PRAPARE - Transportation Answer Date Re corded In the past 12 months, has l ack of transportation kept you from medical appointments or from getting medications? No 10/2020 In the past 12 months, has l ack of transportation kept you from meetings, work, or from getting things needed for daily living? No 07/30/2020 Personal Safety Answer Date Recorded Getting School Help Needed Not on file 07/06 Comments No Sex and Gender Information Value Date Recorded Sex Assigned at Not on file Legal Sex Female 9:09 PM DREDGE PUMPER Gender Identity Not on file Sexual Orientation Lesbian 05/24/2019 9: 06 AM CDT documented as of this encounter Medications at Time of Discharge atorvastatin (LIPITOR) 20 mg tabletIndications:h yperlipidemia Take 1 tablet (20 mg total) by mouth nightly 07/29/[address] (CYMBALTA) 60 mg capsuleIndications: Anxiety with Depression Take 1 capsule (60 mg total) by mouth every morning 03/11/2023 ALPRAZolam (XANAX) 0.25 mg tablet Take 1 tablet (0.25 mg total) by mouth nightly as needed for anxiety 90 tablet 04/13/2023 4 amiodarone (PACERONE) 200 mg tablet Take 1 tablet (200 mg total) by mouth daily 30 tablet 5 08/04/2023 4 azelastine (ASTELIN) 137 mcg (0.1 %) nasal sprayIndications:Se asonal Allergic Rhinitis Administer 1 spray into each nostril 2 (two) times a day as needed for rhinitis or allergies 12/30/2021 4 doxepin (SINEquan) 25 mg capsuleIndications: sleep Take 1-2 capsules (25-50 mg total) by mouth nightly as needed for sleep 02/04/[address] (CYMBALTA) 30 mg capsuleIndications: Anxiety with Depression Take 3 capsules (90 mg total) by mouth every morning 12/21/2019 4 Eliquis 5 mg tabletIndications:a trial fibrillation Take 1 tablet (5 mg total) by mouth 2 (two) times a day 04/23/2021 4 fexofenadine-pseudo ephedrine (THELMA-D) 60-120 mg per 12 hr tabletIndications:A llergic Rhinitis Take 1 tablet by mouth 2 (two) times a day as needed for allergies 4 fluticasone (FLONASE) 50 mcg/actuation nasal spray inhale 1 spray (50MCG) by intranasal route every day in each nostril 0 06/15/2012 4 furosemide (LASIX) 20 mg tabletIndications:A pical variant hypertrophic cardiomyopathy (HCC),SNIDER (dyspnea on exertion),Localized edema TAKE 1 TABLET(20 MG) BY MOUTH DAILY 30 tablet 3 08/04/2023 4 HYDROcodone-acetami nophen (NORCO) 5-325 mg per tabletIndications:P ain Take 1 tablet by mouth every 6 (six) hours as needed for pain 04/03/2022 4 Lagevrio, EUA, 200 mg capsule (EUA) TAKE 4 CAPSULES BY MOUTH EVERY 12 HOURS FOR 5 DAYS 07/13/2023 4 magnesium citrate 100 mg tabletIndications:h ypomagnesemia Take 1 tablet by mouth every morning 4 metoprolol tartrate (LOPRESSOR) 25 mg immediate release tabletIndications:A trial Arrhythmia TAKE 1 TABLET(25 MG) BY MOUTH TWICE DAILY 180 tablet 1 07/31/2023 4 potassium chloride ER 20 mEq CR tabletIndications:s upplement Take 2 tablets (40 mEq total) by mouth every morning 06/29/2020 4 senna-docusate (PERICOLACE) 8.6-50 mgIndications:const ipation Take 2 tablets by mouth 2 (two) times a day for 14 days 56 tablet 07/29/2020 4 sucralfate (CARAFATE) 1 gram tablet Take 2 tablets (2 g total) by mouth 2 (two) times a day as needed 4 documented as of this encounter Discharge Disposition Disposition Code Departure Means Destination Discharge to home or self care documented in this encounter Plan of Treatment Not on file documented as of this encounter Procedures Procedure Name Priority Date/Time Associated Diagnosis Comments XR SCOLIOSIS 6 OR MORE VIEWS Schedule Routine, Read Routine (OP Routine) 08/04/2023 8:07 AM DREDGE PUMPER Facet arthritis of lumbar region documented in this encounter Results * XR Scoliosis 6 or More Views (08/04/2023 8:07 AM DREDGE PUMPER) Anatomical Region Laterality Modality Spine N/A Computed Radiogr aphy 08/04/2023 9:25 AM DREDGE PUMPER Impressions 08/04/2023 12:15 PM DREDGE PUMPER 1. ??Unchanged posterior L1-L4 fusion with anterior fusion and posterior decompression from L2-L5. ??Unchanged lucency surrounding the L1 pedicle screws. 2. ??Mild positive sagittal imbalance. Dictated by: Alexys Esparza M.D. The radiology attending physician has personally reviewed this study, and had reviewed and/or edited this written report and agrees with it. Electronically signed by: Herson Carver MD Narrative 08/04/2023 12:15 PM DREDGE PUMPER EXAMINATION: XR SCOLIOSIS ??6 OR MORE VIEWS HISTORY: Fusion COMPARISON: 06/08/2023 CT FINDINGS: Digitally acquired frontal and lateral views the spine with dedicated lumbar spine views are interpreted. Posterior instrument fusion from L1-L4 with anterior fusion and posterior decompression from L2-L5. ??Unchanged lucency surrounding the L1 pedicle screws. ??No motion at the fused levels with flexion or extension. ??Moderate degenerative disc disease at T12-L1. ?? Mild positive sagittal imbalance without significant curvature of the spine. ??Neutral coronal balance. ??No pelvic obliquity. Bilateral hip arthroplasties noted. ??Left subclavian pacemaker/defibrillator present. Procedure Note Herson Carver MD - 08/04/2023 EXAMINATION: XR SCOLIOSIS 6 OR MORE VIEWS HISTORY: Fusion COMPARISON: 06/08/2023 CT FINDINGS: Digitally acquired frontal and lateral views the spine with dedicated lumbar spine views are interpreted. Posterior instrument fusion from L1-L4 with anterior fusion and posterior decompression from L2-L5. Unchanged lucency surrounding the L1 pedicle screws. No motion at the fused levels with flexion or extension. Moderate degenerative disc disease at T12-L1. Mild positive sagittal imbalance without significant curvature of the spine. Neutral coronal balance. No pelvic obliquity. Bilateral hip arthroplasties noted. Left subclavian pacemaker/defibrillator present. IMPRESSION: 1. Unchanged posterior L1-L4 fusion with anterior fusion and posterior decompression from L2-L5. Unchanged lucency surrounding the L1 pedicle screws. 2. Mild positive sagittal imbalance. Dictated by: Alexys Esparza M.D. The radiology attending physician has personally reviewed this study, and had reviewed and/or edited this written report and agrees with it. Electronically signed by: Herson Carver MD Jeremy Michelle MD IMG XR PROCEDURES Fi nal Result documented in this encounter Visit Diagnoses Diagnosis Facet arthritis of lumbar region documented in this encounter Care Teams Grade Teacher Relationship Specialty Start Date End Date Enmanuel Gan MD [address] [facility] [address] [place] [address] PCP - General Internal Medicine 04/26/20 Tg Houston MD [address] [facility] [address] [place] [address] Consulting Physician Cardiology 07/18/20 Guerrero Hunter DPT [address] [facility] [address] [facility] [place] [address] Physical Therapist Physical Therapy 11/08/20 Guerrero Weiner, MANAGER VOICE [address] [facility] [address] [place], [place] [id number] Recreation Adviser Physical Therapy 12/12/20 documented as of this encounter
--- OUTSIDE RECORDS SUMMARY | 2024-07-12 08:43 | XMS_ITS | Encounter Summary ---
Author Organization [facility] Healthcare Address [address] [place] [address] Care Team Providers Care Cosmetics Counter Manager Name Role Phone Enmanuel Gan MD Primary Care Provider [phone] Tg Houston MD Unavailable [phone] Guerrero Hunter DPT Unavailable [phone] Guerrero Weiner SHANK TAPER Unavailable [phone] Stephen Barth MD Unavailable [phone] Reason for Visit * Cardiology (Routine) - Closed Specialty Diagnoses / Procedures Referred By Contac t Referred To Contact Diagnoses NICM (nonischemic cardiomyopathy) (CMS/HCC) (HCC) Procedures DEVICE CHECK - REMOTE Ashvin Recio III, MD [address] [facility] [address], [place] [address] Phone: tel: fax: [facility] Group Referral ID Status Reason Start Date Expiration Date Visits Re quested Visits Authorized [id number] Closed 01/26/2023 07/29/2024 1 1 Encounter Details Date Type Department Care Team (Latest Contact Info) Description 11/17/2023 7:00 AM CDT Ancillary Procedure Arrhythmia Center [address] [facility] [address] [address] ICD (implantable cardioverter-defibr illator), dual, in situ (Primary Dx); NICM (nonischemic cardiomyopathy) (CMS/HCC) ([facility]) Social History Tobacco Use Types Packs/Day Years [...] often do you attend chur ch or caodaism services? Never 07/30/2020 Do you belong to [...] alcohol? 4 or more times a week 11/12/2023 Q2: How many drinks containi ng alcohol do you have on a typical day when you are drinking? 1 or 2 Q3: How often do you have si x or more drinks on one occasion? Never 11/12/2023 Overall Financial Resource Strain (CARDIA) Answe r [...] No 07/30/2020 Personal Safety Answer Date Recorded Have you ever been in or are you currently in a harmful physical or emotional relationship or is someone making you feel afraid or unsafe? Denies 11/12/2023 Comments No Sex and Gender Information Value Date Recorded Sex Assigned at Not on file Legal Sex Female 9:09 PM SUPERVISOR POST WAVE Gender Identity Not on file Sexual Orientation Lesbian 05/24/2019 9: 06 AM CDT documented as of this encounter Plan of Treatment Not on file documented as of this encounter Procedures Procedure Name Priority Date/Time Associated Diagnosis Comments DEVICE CHECK - REMOTE Routine 11/17/2023 8:50 AM CDT NICM (nonischemic cardiomyopathy) (CMS/HCC) (HCC) documented in this encounter Results * DEVICE CHECK - REMOTE (11/17/2023 8:50 AM CDT) Anatomical Region Laterality Modality Other Narrative 11/23/2023 1:42 PM CDT Table formatting from the original result was not included. ICD CHECK (REMOTE) Patient ID: Macie Briseno is a 78 y.o. female This patient received a Langston scientific ICD. ??They had a remote transmission on 11/17/2023. Device implant indications: ??Nonischemic cardiomyopathy, Mobitz type 2 ?? Interrogation of the patient's device demonstrates the following: Presenting EGM: ??A sense V sense @ 77 bpm Original Device Settings Right Atrium Right Ventricle Sensitivity (mV) 0.25 mV .60 mV Pacing Outputs 2.5 V @ .4 ms 2.5 V @ 0.40 ms ?? Testing Measurements Right Atrium Right Ventricle Sensitivity (mV) 6.2 mV >25.0 mV Impedence (Ohms) 523 ohms 425 ohms High Voltage Impedence ??71 ohms Pace Threshold Not done V @ ??ms Not done V @ ??ms Pacing % 24 % 1 % Battery Status: ??10.5 years to YURIDIA with Charge Time 8.6 seconds Episodes last 90 days/Comments: AF [place] 0% There were no new ventricular events noted on today's remote interrogation. NORMAL DEVICE FUNCTION PROGRAMMED Medications: Anti-coagulant(s): ??None Anti-arrhythmic(s): ??Lopressor 25 mg twice daily PLAN: 1) normal Langston scientific ICD evaluation. 2) Langston scientific remote transmission scheduled in 3 months. 3) Programming appropriate for device measurements Latisha Self, RN Ashvin Recio III, MD [facility] PROCEDURES Final Result documented in this encounter Visit Diagnoses Diagnosis ICD (implantable cardioverter-defibrillator), dual, in situ- Primary NICM (nonischemic cardiomyopathy) (CMS/HCC) (HCC) documented in this encounter Care Teams Cosmetics Counter Manager Relationship Specialty Start Date End Date Enmanuel Gan MD [address] [place], [place] [id number] PCP - General Internal Medicine 04/26/20 Tg Houston MD [address] [place] [address] Consulting Physician Cardiology 07/18/20 Guerrero Hunter DPT [address] [facility] [address] [facility] [place] [address] Physical Therapist Physical Therapy 11/08/20 Guerrero Weiner, [facility] [address] [facility] [address] [place] [address] Photographic Printer Physical Therapy 12/12/20 Stephen Barth MD [address] [place] [address] Referring Physician Transplant 10/19/23 documented as of this encounter
--- OUTSIDE RECORDS SUMMARY | 2024-07-12 08:43 | XMS_ITS | Encounter Summary ---
Author Organization [facility] Address [address] [place] [address] Phone Care Team Providers Care Digital Pre Press Operator Name Role Phone Enmanuel Gan MD Primary Care Provider [phone] Tg Houston MD Unavailable [phone] Guerrero Hunter DPT Unavailable [phone] Guerrero Weiner LIBRARY ACQUISITIONS TECHNICIAN Unavailable [phone] Reason for Visit * Reason Onset Date Comments Spinal Surgery 09/17/2023 Encounter Details Date Type Department Care Team (Late st Contact Info) Description 09/17/2023 Telephone [facility] Orthopaedic Surgery [address] [facility] 6th [place] [address] [place] [address] Jeremy Michelle MD [address] [facility] [address] Spinal Surgery Social History Tobacco Use Types [...] attend chur ch or alevism services? Never 07/30/2020 Do you belong to [...] on file Legal Sex Female 9:09 PM CRIME SPECIALIST Gender Identity Not on file Sexual Orientation Lesbian 05/24/2019 9: 06 AM CDT documented as of this encounter Miscellaneous Notes * Telephone Encounter - Cyndie Byers RN - 09/23/2023 3:33 PM CRIME SPECIALIST Due to changes in schedule discussed a change in dates again to 10/26/23. Patient agreement. E SPECIALIST * Telephone Encounter - Cyndie Byers RN - 09/17/2023 5:02 PM CRIME SPECIALIST Spoke with patient about need to change surgery date to 11/15 instead of 11/08 she is in agreement. E SPECIALIST documented in this encounter Plan of Treatment Not on file documented as of this encounter Visit Diagnoses Not on filedocumented in this encounter Care Teams Digital Pre Press Operator Relationship Specialty Start Date End Date Enmanuel Gan MD [address] [facility] [address] INTER[address] MED[address]INE [place], [place] [id number] PCP - General Internal Medicine 04/26/20 Tg Houston MD [address] [facility] [address] [place] [address] Consulting Physician Cardiology 07/18/20 Guerrero Hunter DPT [address] [facility] [address] [facility] [place] [address] Physical Therapist Physical Therapy 11/08/20 Guerrero Weiner, [facility] [address] [facility] [address] [place] [address] Senior Technical Architect Physical Therapy 12/12/20 documented as of this encounter
--- OUTSIDE RECORDS SUMMARY | 2024-07-12 08:43 | XMS_ITS | Encounter Summary ---
Author Organization [facility] Healthcare Address [address] [place] [address] Care Team Providers Care Wildlife Technician Name Role Phone Enmanuel Gan MD Primary Care Provider [phone] Tg Houston MD Unavailable [phone] Guerrero Hunter DPT Unavailable [phone] Guerrero Weiner PLUMBING CONTRACTOR Unavailable [phone] Reason for Visit * Reason Onset Date Comments Treated episodes 07/06/2023 Encounter Details Date Type Department Care Team (Late st Contact Info) Description 07/06/2023 Telephone Arrhythmia Center [address] [address] Ashvin Recio III, MD [address] [facility] [address], [place] [address] Treated episodes Social History Tobacco Use Types Packs/Day Years [...] attend chur ch or christianity services? Never 07/30/2020 Do you belong to any clubs o r organizations such as mosque groups, unions, fraternal or athletic groups, or [...] on file Legal Sex Female 9:09 PM GUEST SERVICE TEAM LEADER Gender Identity Not on file Sexual Orientation Lesbian 05/24/2019 9: 06 AM CDT documented as of this encounter Ordered Prescriptions Prescription Sig Dispense Quantity Refills Last Filled Start Date End Date diltiazem (TIAZAC) 360 mg 24 hr capsule Take 1 capsule (360 mg total) by mouth daily 30 capsule 11 07/06/2023 4 documented in this encounter Miscellaneous Notes * Telephone Encounter - Clara Thakkar NP - 07/06/2023 11:48 AM GUEST SERVICE TEAM LEADER Have called patient to inform her T SERVICE TEAM LEADER * Telephone Encounter - Latisha Self RN - 07/06/2023 8:58 AM GUEST SERVICE TEAM LEADER Images from the original note were not included. Finally received transmission from patient's monitor I did try to call and see if she is back in the [facility] or if she is still in [place] there was no answer I left a message on her voicemail. I do see the 2 treated episodes that she had that brought her to the hospital on June 29, 2023 reviewedboth EGMs showing 2 episodes of AFib with RVR that were treated with ATP and progressing to a 41 joule shock which successfully terminated the AFib short for short period of time. However we are receiving alerts again on July 05, 2023 that the patient is experiencing nonsustained episode and episodes occurring in the VT zone due to occurrence of AFib with RVR. I am not certain why her device was interrogated in [place] to verify that the episodes were not in fact VT but AFib with RVR. Patient has a monitor zone at 170 and a therapy zone at 220 unfortunately some of her ventricular rates exceeded 220 beats per minute placing her in her VF zone with no discriminators. Presenting EGM from July 06, 2023 shows that the patient has since converted out of AFib she is currently a sense V sense at 75 beats per minute. Patient reports she is having very bad nosebleeds on the Eliquis and wanted to know about that as well. T SERVICE TEAM LEADER T SERVICE TEAM LEADER documented in this encounter Plan of Treatment Not on file documented as of this encounter Visit Diagnoses Not on filedocumented in this encounter Discontinued Medications Medication Sig Discontinue Reason Start Date End Da te dilTIAZem XR (CARDIZEM CD,DILACOR XR) 180 mg 24 hr capsule Take 1 capsule (180 mg total) by mouth daily 09/25/2022 07/06/2023 documented as of this encounter Care Teams Wildlife Technician Relationship Specialty Start Date End Date Enmanuel Gan MD [address] [place] [address] PCP - General Internal Medicine 04/26/20 Tg Houston MD [address] [facility] [address] [place] [address] Consulting Physician Cardiology 07/18/20 Guerrero Hnuter DPT [address] [facility] [address] [id number] Physical Therapist Physical Therapy 11/08/20 Guerrero Weiner, [facility] [id number] [place] [address] Quarry Extraction Worker Physical Therapy 12/12/20 documented as of this encounter
--- OUTSIDE RECORDS SUMMARY | 2024-07-12 08:43 | XMS_ITS | Encounter Summary ---
Author Organization [facility] Healthcare Address [address] [place] [address] Care Team Providers Care Department Head Name Role Phone Enmanuel Gan MD Primary Care Provider [phone] Tg Houston MD Unavailable [phone] Guerrero Hunter DPT Unavailable [phone] Guerrero Weiner GROUP SEGMENT CONSULTANT Unavailable [phone] Reason for Referral * MRI/CAT/PET Scan (Routine) - Closed Specialty Diagnoses / Procedures Referred By Contac t Referred To Contact Radiology Diagnoses Fusion of spine of lumbar region Lumbar radiculopathy Procedures MRI Lumbar Spine WO Contrast MRI Lumbar Spine WO Contrast Jeremy Michelle MD [address] [facility] [place] [address] Phone: tel: fax: [address] [phone] Referral ID Status Reason Start Date Expiration Date Visits Re quested Visits Authorized [id number] Closed 09/22/2023 03/20/2024 1 1 Reason for Visit * MRI/CAT/PET Scan (Routine) - Closed Specialty Diagnoses / Procedures Referred By Contac t Referred To Contact Radiology Diagnoses Fusion of spine of lumbar region Lumbar radiculopathy Procedures MRI Lumbar Spine WO Contrast MRI Lumbar Spine WO Contrast Jeremy Michelle MD [address] [facility], [place] [address] Phone: tel: fax: [address] [phone] Referral ID Status Reason Start Date Expiration Date Visits Re quested Visits Authorized [id number] Closed 09/22/2023 03/20/2024 1 1 Encounter Details Date Type Department Care Team (Latest Contact Info) Description 10/07/2023 7:31 AM CDT - 10/07/2023 11:59 PM CDT Hospital Encounter [facility] [address] [place] [address] Fusion of spine of lumbar region; Lumbar radiculopathy Discharge Disposition: Discharge to home [...] 07/30/2020 How often do you attend chur or zoroastrianism services? Never 07/30/2020 Do you belong to any clubs o r organizations such as mandaeism groups, unions, fraternal or athletic groups, or [...] when you are drinking? 1 or 2 Frequency of Binge Drinking Not on file [...] on file Legal Sex Female 9:09 PM SNUFF CONTAINER INSPECTOR Gender Identity Not on file Sexual Orientation Lesbian 05/24/2019 9: 06 AM CDT documented as of this encounter Last Filed Vital Signs Vital Sign Reading Time Taken Comments Blood Pressure 121/60 10/07/2023 10:04 AM CDT Pulse 60 10/07/2023 10:05 AM CDT Temperature - - Respiratory Rate - - Oxygen Saturation 93% 10/07/2023 10:05 AM CDT Inhaled Oxygen Concentration - - Weight - - Height - - Body Mass Index - - documented in this encounter Medications at Time of Discharge atorvastatin (LIPITOR) 20 mg tabletIndications:h yperlipidemia Take 1 tablet (20 mg total) by mouth nightly 07/29/2018 azelastine (ASTELIN) 137 mcg (0.1 %) nasal spray spray(s), 0 08/20/[address] (CYMBALTA) 60 mg capsuleIndications: Anxiety with Depression Take 1 capsule (60 mg total) by mouth every morning 03/11/2023 fexofenadine-pseudo ephedrine (Thelma-D 12 Hour) 60-120 mg per 12 hr tablet flutic tablet(s), 0 08/20/2023 fluticasone propionate (FLONASE) 50 mcg/actuation nasal spray 1 spray(s), Nasal, daily, 1 each, [place], 0 08/20/2023 sucralfate (Carafate) 1 gram tablet 2 tablets (2 g total) 08/20/2023 alendronate (FOSAMAX) 70 mg tabletIndications:P ost-Menopausal Osteoporosis Take 1 tablet (70 mg total) by mouth every 7 days Thursday08/18/2023 4 ALPRAZolam (XANAX) 0.25 mg tablet Take 1 tablet (0.25 mg total) by mouth nightly as needed for anxiety 90 tablet 04/13/2023 4 azelastine (ASTELIN) 137 mcg (0.1 %) nasal sprayIndications:Se asonal Allergic Rhinitis Administer 1 spray into each nostril 2 (two) times a day as needed for rhinitis or allergies 12/30/2021 4 DILT-XR 180 mg 24 hr capsuleIndications: A-fib Take 1 capsule (180 mg total) by mouth every morning 09/07/2023 4 doxepin (SINEquan) 25 mg capsuleIndications: sleep Take 1-2 capsules (25-50 mg total) by mouth nightly as needed for sleep 02/04/2023 4 Eliquis 5 mg tabletIndications:a trial fibrillation [...] hours as needed for pain 04/03/2022 4 magnesium citrate 100 mg tabletIndications:h ypomagnesemia [...] Name Priority Date/Time Associated Diagnosis Comments MRI LUMBAR SPINE WO CONTRAST Schedule Routine, Read Routine (OP Routine) 10/07/2023 10:16 AM CDT Fusion of spine of lumbar region Lumbar radiculopathy documented in this encounter Results * MRI Lumbar Spine WO Contrast (10/07/2023 10:16 AM CDT) Anatomical Region Laterality Modality Spine N/A Magnetic Resonan ce 10/07/2023 11:0 4 AM CDT Impressions 10/07/2023 12:04 PM CDT 1. ??Postsurgical changes of L1-L4 posterior instrumented fusion with L2-S1 discectomy and interbody fusion with posterior decompression. 2. ??Interval accelerated degeneration at T12-L1 with disc height loss and desiccation with new edema of the T12 endplate is favored to be degenerative. ??No high-grade neural foraminal or spinal canal stenosis. Dictated by: Kelton Streeter MD The radiology attending physician has personally reviewed this study, and had reviewed and/or edited this written report and agrees with it. Electronically signed by: Arcelia Pruitt M.D. Narrative 10/07/2023 12:04 PM CDT EXAMINATION: Magnetic resonance imaging (MRI) of the lumbar spine without contrast HISTORY: Persistent radiculopathy status post L1-L4 fusion and discectomy and interbody fusion from L2-S1, posterior decompression from L1-S1 TECHNIQUE: Multiplanar multi-weighted MRI of the lumbar spine was performed without intravenous contrast using the standard protocol. COMPARISON: MRI dated 10/30/[address] dated 10/01/2020 FINDINGS: Postsurgical changes of L1-L4 posterior instrumented fusion with L2-S1 discectomy and interbody fusion and posterior decompression. There is a new area of T1 hypointensity and T2 hyperintensity at the inferior endplate of T12 with increasing disc height loss and desiccation at T12-L1. ??Persistent T2 hyperintensity in L3-L4 disc space is unchanged from prior study. ??Posterior paraspinal muscle atrophy. ??The alignment of the lumbar spine is normal. There are no compression fractures. The conus medullaris terminates at the level of L1. The distal spinal cord signal intensity is normal. There are no annular fissures identified. Limited views of the abdomen and pelvis show no soft tissue abnormality. The aorta is normal. L1-L2: Mild disc bulge. There is no neuroforaminal stenosis. There is no spinal canal stenosis. L2-L3: Fused level. There is mild bilateral neuroforaminal stenosis. There is no spinal canal stenosis. L3-L4: Fused level. There is no neuroforaminal stenosis. There is no spinal canal stenosis. L4-L5: Fused level. There is mild right neuroforaminal stenosis. There is no spinal canal stenosis. L5-S1: Fused level. There is no neuroforaminal stenosis. There is no spinal canal stenosis. Procedure Note Arcelia Pruitt MD - 10/07/2023 EXAMINATION: Magnetic resonance imaging (MRI) of the lumbar spine without contrast HISTORY: Persistent radiculopathy status post L1-L4 fusion and discectomy and interbody fusion from L2-S1, posterior decompression from L1-S1 TECHNIQUE: Multiplanar multi-weighted MRI of the lumbar spine was performed without intravenous contrast using the standard protocol. COMPARISON: MRI dated 10/30/[address] dated 10/01/2020 FINDINGS: Postsurgical changes of L1-L4 posterior instrumented fusion with L2-S1 discectomy and interbody fusion and posterior decompression. There is a new area of T1 hypointensity and T2 hyperintensity at the inferior endplate of T12 with increasing disc height loss and desiccation at T12-L1. Persistent T2 hyperintensity in L3-L4 disc space is unchanged from prior study. Posterior paraspinal muscle atrophy. The alignment of the lumbar spine is normal. There are no compression fractures. The conus medullaris terminates at the level of L1. The distal spinal cord signal intensity is normal. There are no annular fissures identified. Limited views of the abdomen and pelvis show no soft tissue abnormality. The aorta is normal. L1-L2: Mild disc bulge. There is no neuroforaminal stenosis. There is no spinal canal stenosis. L2-L3: Fused level. There is mild bilateral neuroforaminal stenosis. There is no spinal canal stenosis. L3-L4: Fused level. There is no neuroforaminal stenosis. There is no spinal canal stenosis. L4-L5: Fused level. There is mild right neuroforaminal stenosis. There is no spinal canal stenosis. L5-S1: Fused level. There is no neuroforaminal stenosis. There is no spinal canal stenosis. IMPRESSION: 1. Postsurgical changes of L1-L4 posterior instrumented fusion with L2-S1 discectomy and interbody fusion with posterior decompression. 2. Interval accelerated degeneration at T12-L1 with disc height loss and desiccation with new edema of the T12 endplate is favored to be degenerative. No high-grade neural foraminal or spinal canal stenosis. Dictated by: Kelton Streeter MD The radiology attending physician has personally reviewed this study, and had reviewed and/or edited this written report and agrees with it. Electronically signed by: Arcelia Pruitt M.D. us Jeremy Michelle MD IMG MRI PROCEDURES F inal Result documented in this encounter Visit Diagnoses Diagnosis Fusion of spine of lumbar region Lumbar radiculopathy Thoracic or lumbosacral neuritis or radiculitis, unspecified documented in this encounter Care Teams Department Head Relationship Specialty Start Date End Date Enmanuel Gan MD [address] [facility] [address] INTERNAL MEDICINE [place], [place] [id number] PCP - General Internal Medicine 04/26/20 Tg Houston MD [address] [facility] [address] [place] [address] Consulting Physician Cardiology 07/18/20 Guerrero Hunter DPT [address] [facility] [address] [id number] Physical Therapist Physical Therapy 11/08/20 Guerrero Weiner, GROUP SEGMENT CONSULTANT [address] [place] [address] Milk Deliverer Physical Therapy 12/12/20 documented as of this encounter
--- OUTSIDE RECORDS SUMMARY | 2024-07-12 08:43 | XMS_ITS | Encounter Summary ---
Author Organization [facility] Healthcare Address [address] [place] [address] Care Team Providers Care Warehouse Manager Name Role Phone Enmanuel Gan MD Primary Care Provider [phone] Tg Houston MD Unavailable [phone] Guerrero Hunter DPT Unavailable [phone] Guerrero Weiner CRAP SHOOTER Unavailable [phone] Encounter Details Date Type Department Care Team (Late st Contact Info) Description 08/04/2023 Telephone [facility] Cardiology [address] [place] [address] Yanni Dang NP [address] [place] [address] Social History Tobacco Use Types Packs/Day Years [...] week 07/30/2020 How often do you attend [facility] or caodaism services? Never 07/30/2020 Do you [...] on file Legal Sex Female 9:09 PM SPINNER HAND Gender Identity Not on file Sexual Orientation Lesbian 05/24/2019 9: 06 AM CDT documented as of this encounter Miscellaneous Notes * Telephone Encounter - Tootie Castaneda RN - 08/05/2023 10:08 AM SPINNER HAND Forwarded pt CT's response. Will await her response. NER HAND * Telephone Encounter - Tootie Castaneda RN - 08/05/2023 8:09 AM SPINNER HAND Images from the original note were not included. Macie [facility]omo [facility] Pool (supporting Yanni Dang NP)9 hours ago (10:19 PM) Farrukh Liao - I know you hate for patients to find their DrBalaji degree on the internet....however it does provide some information that helps us lay folks to try and understand what drugs we are taking. I did some reading regarding the amiodarone and am a bit hesitant to start it. It seems to carry a lot of baggage regarding side effects and drug of last choice for some of these uses. I read that it is used for ventricular arrhythmia and was not aware that I have been diagnosed with that. My understanding is that Afib is atrial and not ventricular....at least that is what the Seferino Dr was telling me. Possibly it would be beneficial for me to speak with you personally before starting this new drug. You could explain to me what it is being used for in my case. Also, another drug thatapparently is offered in it's place is Dronedarone and is noted to be safer . I appreciate your input. Thanks! Will forward to [place]. Please advise, thank you! NER HAND * Telephone Encounter - Latisha Bautista RN - 08/04/2023 4:06 PM SPINNER HAND [employer] message sent to pt, prescription sent to pharmacy and EKG added to appt notes. NER HAND * Telephone Encounter - Yanni Dang NP - 08/04/2023 3:38 PM SPINNER HAND Please forward below message to [employer] since Tootie already left. Thanks. NER HAND * Telephone Encounter - Yanni Dang NP - 08/04/2023 3:36 PM SPINNER HAND Hi Ms. Briseno, I'm glad to hear you think you feel a bit better, and your heart rate has come down some more, which is good too. Dr. Hobbs and I just talked and we want you to stop diltiazem altogether. We are going to replace it with a different medication called amiodarone which is more effective to prevent episodes of fast Afib. You will only need a low dose of 200 mg once a day. And you will continue metoprolol 25 mg twice a day. If at any point between now and your next appt with Dr. Hobbs you begin tofeel unwell (increased palpitations, chest discomfort or lightheadedness) let us know right away. I don't forsee the spine surgery being a problem because all the recent testing in [place] was ok. Thank you, Yanni Good or Jennifer, Please send Rx for amio (she already has the metoprolol) and add a note to appt note with Dr. Hobbs that she will need an ECG at that appt. Thanks. NER HAND NER HAND * Telephone Encounter - Tootie Castaneda RN - 08/04/2023 12:59 PM SPINNER HAND Images from the original note were not included. Macie [facility]isen[facility] [place] Sorry I missed your call. I believe I have felt a bit better on the new medicine and just the one Diltiazem. I am not so out of breath. My BP rates are as follows: 1.6.24 - 8pm 132/66 with 64 1.7.24 - 10:45am - 137/57 - 67 & 134/53- 67 11:45am - 134/67 - 63 & 126/68 - 63 8:15pm - 135/79 - 64 & 137/55 =63 10:00pm - 121/56 -61 & 122/54 - 60 1.8.24 - 10:15am - 131/56 - 71 & 134/60 - 68 11;20am - 138/59 - 66 & 126/57 - 67 9:30pm - no reading 1030pm - 124/58 - 60 1.9.24 - no reading this morning The rates are a bit lower the hour after taking the metoprolol. Dr. Thuy Michelle at [place] wants to do work on my spine. Fusing L1 to T10 or 11. My L1 did not fuse and there is wear and stress now evident on T12. I'll need clearance from Dr. Hobbs and Dr. Recio for this surgery. It's a long one about 5 hrs. I will be home all afternoon/evening Thanks so much! Will forward pts my chart message to [place]. Please advise, thank you! NER HAND * Telephone Encounter - Yanni Dang NP - 08/04/2023 9:03 AM SPINNER HAND I called patient and left her a voicemail. I heard back from Dr. Recio this morning. I want patient to call office or send [facility] message today to let me know how she felt over the past 3 days starting metoprolol and lowering diltiazem dose, and I want her BP and heart rate readings. Then I'll discuss with Dr. Hobbs and make a plan for her medication moving forward. NER HAND documented in this encounter Plan of Treatment Not on file documented as of this encounter Visit Diagnoses Not on filedocumented in this encounter Care Teams Warehouse Manager Relationship Specialty Start Date End Date Enmanuel Gan MD [address] [place] [address] PCP - General Internal Medicine 04/26/20 Tg Houston MD [address] [facility] [address] [place] [address] Consulting Physician Cardiology 07/18/20 Guerrero Hunter DPT [address] [facility] [address] [facility] [place] [address] Physical Therapist Physical Therapy 11/08/20 Guerrero Weiner, CRAP SHOOTER [id number] [place] [address] Special Events Coordinator Physical Therapy 12/12/20 documented as of this encounter
--- OUTSIDE RECORDS SUMMARY | 2024-07-12 08:43 | XMS_ITS | Encounter Summary ---
Author Organization [facility] Address [address] [place] [address] Phone Care Team Providers Care Teacher Physically Impaired Name Role Phone Enmanuel Gan MD Primary Care Provider [phone] Tg Houston MD Unavailable [phone] Guerrero Hunter DPT Unavailable [phone] Guerrero Weiner CIRCULATION WORKER Unavailable [phone] Reason for Referral * Cardiology (Routine) - Authorized Specialty Diagnoses / Procedures Referred By Contac t Referred To Contact Diagnoses ICD (implantable cardioverter-defibrillator ), dual, in situ Procedures DEVICE CHECK - IN OFFICE Cyndie Person NP Phone: tel: fax: [facility] (All Locations) Referral ID Status Reason Start Date Expiration Date V isits Requested Visits Authorized [id number] Authorized 08/24/2023 09/22/2024 24 24 GUARD Encounter Details Date Type Department Care Team (Late st Contact Info) Description 08/24/2023 Telephone [facility] Cardiology [facility] [facility] 8th [place] [address] [place] [address] Naila Danielson Social History Tobacco Use Types Packs/Day Years [...] attend chur ch or evangelical services? Never 07/30/2020 Do you belong to [...] on file Legal Sex Female 9:09 PM BANK GUARD Gender Identity Not on file Sexual Orientation Lesbian 05/24/2019 9: 06 AM CDT documented as of this encounter Miscellaneous Notes * Telephone Encounter - Naila Danielson - 08/24/2023 9:11 AM CST Please obtain last device check, office visit and op note from physician following patients device.Please also obtain device information, add to [place] and Permanent Comment section of patients account. Device and Cyndie Person appointments are scheduled, patient CONFIRMED appointment date and times with Chris Lockett Patient Name//MRN: Macie Briseno 46 [id number] MRI Appointment Date& Time: 10/07/23 08:30 EP Appointment Type: MRI Clearance EP Consult Provider: 10/06/23 @ 9:30 DEVICE & 10:00 PERSON Type of Device: ICD Taker Down: [employer] When/Where Implanted: [employer] 06/05/21 that follows device with phone number: [place] [phone] EP consult 10/06/23 09:30 D/C 10:00 Person confirmed with patient GUARD documented in this encounter Plan of Treatment Not on file documented as of this encounter Results * DEVICE CHECK - IN OFFICE (09/29/2023 12:35 PM BANK GUARD) Anatomical Region Laterality Modality Other 09/29/2023 2:00 AM BANK GUARD Narrative 10/01/2023 9:14 AM BANK GUARD Interpretation Summary: Battery and Leads (BL) Normal parameters noted on battery and lead(s) --- Estimate 10.5 years to YURIDIA Procedure Note Festus De Leon MD - 10/02/2023 Interpretation Summary: Battery and Leads (BL) Normal parameters noted on battery and lead(s) --- Estimate 10.5 years toERI us Cyndie Person NP [facility] Final Result documented in this encounter Visit Diagnoses Diagnosis ICD (implantable cardioverter-defibrillator), dual, in situ- Primary ICD (implantable cardioverter-defibrillator), dual, in situ documented in this encounter Care Teams Teacher Physically Impaired Relationship Specialty Start Date End Date Enmanuel Gan MD [address] [place] [address] PCP - General Internal Medicine 04/26/20 Tg Houston MD [address] [place] [address] Consulting Physician Cardiology 07/18/20 Guerrero Hunter DPT [address] [facility] [address] [place], [place] [id number] Physical Therapist Physical Therapy 11/08/20 Guerrero Weiner, [facility] [address] [facility] [address] [place] [address] Cloth Burler Physical Therapy 12/12/20 documented as of this encounter
--- OUTSIDE RECORDS SUMMARY | 2024-07-12 08:43 | XMS_ITS | Encounter Summary ---
Author Organization [facility] Address [address] [place] [address] Phone Care Team Providers Care Staff Editor Name Role Phone Enmanuel Gan MD Primary Care Provider [phone] Tg Houston MD Unavailable [phone] Guerrero Hunter DPT Unavailable [phone] Guerrero Weiner HEAD OF HUMAN RESOURCES Unavailable [phone] Reason for Visit * Cardiology (Routine) - Authorized Specialty Diagnoses / Procedures Referred By Contac t Referred To Contact Diagnoses ICD (implantable cardioverter-defibrillator ), dual, in situ Procedures DEVICE CHECK - IN OFFICE Cyndie Person NP Phone: tel: fax: [facility] (All Locations) Referral ID Status Reason Start Date Expiration Date V isits Requested Visits Authorized [id number] Authorized 08/24/2023 09/22/2024 24 24 Encounter Details Date Type Department Care Team (Latest Contact Info) Description 09/29/2023 1:00 PM CONTENT STRATEGY LEAD Ancillary Procedure [facility] Cardiology [address] [facility] 8th [place] [address] [place] [id number] ICD (implantable cardioverter-defibr illator), dual, in situ Social History Tobacco Use Types Packs/Day Years [...] attend chur ch or restoration services? Never 07/30/2020 Do you belong to [...] on file Legal Sex Female 9:09 PM CONTENT STRATEGY LEAD Gender Identity Not on file Sexual Orientation Lesbian 05/24/2019 9: 06 AM CDT documented as of this encounter Plan of Treatment Not on file documented as of this encounter Procedures Procedure Name Priority Date/Time Associated Diagnosis Comments DEVICE CHECK - IN OFFICE Routine 09/29/2023 12:35 PM CONTENT STRATEGY LEAD ICD (implantable cardioverter-defibr illator), dual, in situ documented in this encounter Results * DEVICE CHECK - IN OFFICE (09/29/2023 12:35 PM CONTENT STRATEGY LEAD) Anatomical Region Laterality Modality Other 09/29/2023 2:00 AM CONTENT STRATEGY LEAD Narrative 10/01/2023 9:14 AM CONTENT STRATEGY LEAD Interpretation Summary: Battery and Leads (BL) Normal parameters noted on battery and lead(s) --- Estimate 10.5 years to YURIDIA Procedure Note Festus De Leon MD - 10/02/2023 Interpretation Summary: Battery and Leads (BL) Normal parameters noted on battery and lead(s) --- Estimate 10.5 years toERI Cyndie Person ACETYLENE OPERATOR [facility] Final Result documented in this encounter Visit Diagnoses Diagnosis ICD (implantable cardioverter-defibrillator), dual, in situ documented in this encounter Care Teams Staff Editor Relationship Specialty Start Date End Date Enmanuel Gan MD [address] [facility] [address] [place] [address] PCP - General Internal Medicine 04/26/20 Tg Houston MD [address] [facility] [address] [place] [address] Consulting Physician Cardiology 07/18/20 Guerrero Hunter DPT [address] [facility] [address] [place], [place] [id number] Physical Therapist Physical Therapy 11/08/20 Guerrero Weiner, HEAD OF HUMAN RESOURCES [address] [facility] [address] [place] [address] Case Assembler Physical Therapy 12/12/20 documented as of this encounter
--- OUTSIDE RECORDS SUMMARY | 2024-07-12 08:43 | XMS_ITS | Encounter Summary ---
Author Organization [facility] Healthcare Address [address] [place] [address] Care Team Providers Care Cuprous Chloride Helper Name Role Phone Enmanuel Gan MD Primary Care Provider Tg [place] MD Unavailable [phone] Guerrero Hunter DPT Unavailable [phone] Guerrero Weiner FRANCHISE BROKER Unavailable [phone] Encounter Details Date Type Department Care Team (Latest Contact Info) Description 10/07/2023 Documentation Cardiology Camelia Balderas, ELECTRIC WELDER HELPER [address] [facility] [address] [place] [address] Social History Tobacco Use Types Packs/Day Years [...] How often do you attend chur or latter-day services? Never 07/30/2020 Do you belong to [...] on file Legal Sex Female 9:09 PM PHOTOGRAPHIC PROCESS WORKER Gender Identity Not on file Sexual Orientation Lesbian 05/24/2019 9: 06 AM CDT documented as of this encounter Progress Notes * Camelia Balderas NP - 10/07/2023 11:18 AM CDT EP Recommendations for Patients With Implanted Cardiac Devices Undergoing MRI Patient Name: Macie Briseno Patient Patient : 1945 Date of Procedure: 10/07/23 [x] Device Interrogation performed and reviewed Risk Assessment: [x] Standard Risk for MRI - device rep & EP available by phone [x] Any MRI-conditional pacemaker or ICD system [] High Risk for MRI - Device rep & EP present [] History of VT [] Non-MRI conditional system (Legacy system) [] Relative Contraindication for MRI - EP - Radiology discussion [] LEADS [] Epicardial leads [] Abandoned leads [] Damaged leads [] New leads (<6 weeks old) [] Leads with extenders or adaptors [] GENERATOR [] Device battery at [facility] NARRATIVE: 78 y.o. female presents for MRI of lumbar spine; no cardiac complaints; no significant events notedper device interrogation. Form Completed/Evaluated by: Camelia Balderas NP documented in this encounter Plan of Treatment Not on file documented as of this encounter Visit Diagnoses Not on filedocumented in this encounter Care Teams Cuprous Chloride Helper Relationship Specialty Start Date End Date Enmanuel aGn MD [address] [facility] [address] [place] [address] PCP - General Internal Medicine 04/26/20 Tg [place] MD [address] [facility] [address] [place] [address] Consulting Physician Cardiology 07/18/20 Guerrero Hunter DPT [address] [facility] [address] [facility] [place] [address] Physical Therapist Physical Therapy 11/08/20 Guerrero Weiner, [facility] [address] [facility] [address] [place], [place] [id number] Hole Digger Truck Driver Physical Therapy 12/12/20 documented as of this encounter
--- OUTSIDE RECORDS SUMMARY | 2024-07-12 08:43 | XMS_ITS | Encounter Summary ---
Author Organization [facility] Healthcare Address [address] [place] [address] Care Team Providers Care Environmental Educator Name Role Phone Enmanuel Gan MD Primary Care Provider [phone] Tg [place] MD Unavailable [phone] Guerrero Hunter DPT Unavailable [phone] Guerrero Weiner AS400 PROGRAMMER Unavailable [phone] Reason for Visit * Reason Comments Chest Pain Encounter Details Date Type Department Care Team (Late st Contact Info) Description 07/31/2023 3:00 PM KNIFEMAN Office Visit [facility] Medical Group Cardiology [address] [facility] [address] [place] [address] Yanni Dang NP [address] [facility] [address] [place] [address] Paroxysmal atrial fibrillation with rapid ventricular response (HCC); Microvascular angina; Chronic anticoagulation; ICD (implantable cardioverter-defibril lator), dual, in situ Social History Tobacco Use [...] often do you attend chur ch or voodoo services? Never 07/30/2020 Do you belong to any clubs o r organizations such as rastafari groups, unions, fraternal or athletic groups, or [...] on file Legal Sex Female 9:09 PM KNIFEMAN Gender Identity Not on file Sexual Orientation Lesbian 05/24/2019 9: 06 AM CDT documented as of this encounter Last Filed Vital Signs Vital Sign Reading Time Taken Comments Blood Pressure 124/58 07/31/2023 3:11 PM KNIFEMAN Pulse 71 07/31/2023 3:11 PM KNIFEMAN Temperature - - Respiratory Rate - - Oxygen Saturation 97% 07/31/2023 3:11 PM KNIFEMAN Inhaled Oxygen Concentration - - Weight 79.8 kg (176 lb) 07/31/2023 3:11 PM KNIFEMAN Height 165.1 cm (5' 5 ) 07/31/2023 3:11 PM KNIFEMAN Body Mass Index 29.29 07/31/2023 3:11 PM KNIFEMAN documented in this encounter Ordered Prescriptions Prescription Sig Dispense Quantity Refills Last Filled Start Date End Date metoprolol tartrate (LOPRESSOR) 25 mg immediate release tabletIndications: Paroxysmal atrial fibrillation with rapid ventricular response (HCC) Take 1 tablet (25 mg total) by mouth 2 (two) times a day 60 tablet 1 07/31/2023 07/31/2023 documented in this encounter Progress Notes * Yanni Dang NP - 07/31/2023 3:00 PM CST Images from the original note were not included. [facility] Medical Group Cardiology [address] [place] [address] Date of Visit: 07/31/2023 Patient ID: Macie Briseno 1945 Chief Complaint Patient presents with Chest Pain Macie Briseno is a 78 y.o. female who is an established patient of Dr. Hobbs with microvascularangina, apical variant hypertrophic cardiomyopathy and atrial fibrillation returning to the office for follow-up after she was hospitalized for ICD discharge. History of Present Illness: Macie Briseno is a 78 y.o. 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 Formally seen at [facility] and is here to establish care with me. In 2019 she was found to have atrial fibrillation during hospitalization forprolonged chest discomfort. It was different than her usual microvascular angina. Echocardiogram and Lexiscan study were unremarkable and it was felt like her symptoms were related to her atrial fibrillation at the time. She was anticoagulated and started on flecainide. In March 2021 she was hospitalized at [facility] again for shortness of breath, weakness, lightheadedness and sweatiness. She was found to have a right bundle-branch block, type 2 second-degree AV block. Pacemaker was implanted and an echocardiogram performed in March 2021 was concerning for apical variant hypertrophic cardiomyopathy. This was confirmed by cardiac MRI. Follow-up note 11/28/2022 patient has no chest pain. She does have worsening dyspnea with exertion which is more consistent as of late. She is dyspneic with walking up 1 flight of stairs. She has some stable lower extremity swelling. She feels exhausted with most any activity. She has no palpitations. No paroxysmal nocturnal dyspnea but does not sleep very well. She does snore and is hypersomnolent. No bleeding issues, syncope, presyncope Follow-up note 12/23/2022: No chest pain. Still has some shortness breath with activity such as climbing a flight of stairs. She does feel generalized weakness at times. No syncope, presyncope, paroxysmal nocturnal dyspnea orthopnea edema. Follow-up with PRODUCT SUPPORT CONSULTANT 02/24/2023: Since her last office visit she had a sleep study. She had the PFT scheduled but there was a conflict and she cancel the appointment in the end. Her shortness of breath with activity has largely resolved. She does not get as breathless going up the steps. She is made apoint to be more active and thinks this may have helped improve her shortness of breath. She deniesany bleeding problems. Hospital follow-up with PRODUCT SUPPORT CONSULTANT 07/31/2023: On 06/24/2023 she felt chest pain and notify EP office, device interrogation showed several AT/AF episodes, longest 29 minutes, rate 110-140, patient was advised no changes. She proceeded to go to [place] where she had another episode of intense chest pain traveling down her arms, and her ICD delivered therapy 2 times and she went to the hospital. She had anechocardiogram and cardiac catheterization that were unremarkable. She was given metoprolol but didnot start it. She was directed to increase diltiazem to 360 mg daily. She reports not feeling any chest pain episodes since the diltiazem was increased. There was another alert on 07/28/2023 that shehad multiple AF with RVR episodes from 07/23/2023 through 2023 rate 110-170, patient was advised no changes. She was COVID positive shortly after her return trip and had mild symptoms of sore throat and congestion, took Paxlovid prescribed by PCP, symptoms resolved. She returns to the office today accompanied by her significant other for follow- up. She reports shehas shortness of breath and feels like she has no strength. 12-lead ECG performed in the office today was independently interpreted by me and showed sinus rhythm, LVH, nonspec Twave abnormality, rate 68 bpm. Records that I personally reviewed on the day of this visit include: (the interpretation is outlined in the HPI above) 02/24/2023 office note from myself, subsequent telephone [facility] from 06/24/2023 to the present. Today's ECG. I have also reviewed: allergies, current medications, past family history, past medical history, past social history, past surgical history and problem list. Medical History: Past Medical History: Diagnosis Date Allergic rhinitis [...] SECTION Left Social History Tobacco Use Smoking Status Never Smokeless Tobacco Never Social History Tobacco Use Smoking status: Never Smokeless tobacco: Never Substance and Sexual Activity Drug use: Not Currently Comment: cbd oil topically Sexual activity: Not Currently Partners: Female control/protection: None Comment: same sex Alcohol Use: Unknown (02/10/2023) AUDIT-C Frequency of Alcohol Consumption: 4 or more times a week Average Number of Drinks: 1 or 2 Frequency of Binge Drinking: Not on file Family History Problem Relation Age of Onset [...] Cardiac Neg Hx Anesthesia problems Neg Hx Review of Systems Constitutional: Positive for malaise/fatigue. Negative for weight gain and weight loss. Cardiovascular: Negative for chest pain, claudication, leg swelling, near- syncope, orthopnea, palpitations, paroxysmal nocturnal dyspnea and syncope. Respiratory: Positive for shortness of breath. Negative for cough and sleep disturbances due to breathing. Hematologic/Lymphatic: Negative for bleeding problem. Does not bruise/bleed easily. Neurological: Negative for dizziness and light-headedness. Vital Signs: BP 124/58 (BP Location: Right arm, Patient Position: Sitting) Pulse 71 Ht 165.1 cm (5' 5 ) Wt79.8 kg (176 lb) SpO2 97% BMI 29.29 kg/m?? Physical Exam Constitutional: General: She is not in acute distress. Appearance: She is well-developed. HENT: Head: Normocephalic and atraumatic. Eyes: General: No scleral icterus. Conjunctiva/sclera: Conjunctivae normal. Neck: Vascular: No JVD. Trachea: No tracheal deviation. Cardiovascular: Rate and Rhythm: Normal rate and regular rhythm. Heart sounds: Normal heart sounds. No murmur heard. Pulmonary: Effort: Pulmonary effort is normal. No respiratory distress. Breath sounds: Normal breath sounds. Chest: Comments: Left chest ICD generator Skin: General: Skin is warm and dry. Neurological: Mental Status: She is alert and oriented to person, place, and time. Psychiatric: Mood and Affect: Mood normal. Behavior: Behavior normal. Allergies Allergen Reactions Adhesive Rash and Blisters Surgical tape Chlorhexidine Rash Sulfa (Sulfonamide Antibiotics) Hives and Rash Gabapentin Other (See comments) Retain water Current Outpatient Medications: ALPRAZolam (XANAX) 0.25 mg tablet, Take 1 tablet (0.25 mg total) by mouth nightly as needed for anxiety, Disp: 90 tablet, Rfl: 0 atorvastatin (LIPITOR) 20 mg tablet, Take 1 tablet (20 mg total) by mouth nightly, Disp: , Rfl: azelastine (ASTELIN) 137 mcg (0.1 %) nasal spray, 1 spray 2 (two) times a day, Disp: , Rfl: diltiazem (TIAZAC) 180 mg 24 hr capsule, Take 1 capsule (180 mg total) by mouth daily, Disp: , Rfl: doxepin (SINEquan) 25 mg capsule, TAKE 1 TO 2 CAPSULES BY MOUTH EVERY DAY AT BEDTIME, Disp: , Rfl: DULoxetine DR (CYMBALTA) 30 mg capsule, Take 3 capsules (90 mg total) by mouth every morning, Disp:, Rfl: DULoxetine DR (CYMBALTA) 60 mg capsule, Take by mouth daily, Disp: , Rfl: Eliquis 5 mg tablet, Take 1 tablet (5 mg total) by mouth 2 (two) times a day, Disp: , Rfl: fexofenadine-pseudoephedrine (THELMA-D) 60-120 mg per 12 hr tablet, Take 1 tablet by mouth 2 (two)times a day as needed for allergies, Disp: , Rfl: fluticasone (FLONASE) 50 mcg/actuation nasal spray, inhale 1 spray (50MCG) by intranasal route every day in each nostril (Patient taking differently: Administer into each nostril nightly), Disp: , Rfl: 0 furosemide (LASIX) 20 mg tablet, Take 1 tablet (20 mg total) by mouth daily, Disp: 30 tablet, Rfl: 11 HYDROcodone-acetaminophen (NORCO) 5-325 mg per tablet, Take by mouth every 6 (six) hours as needed,Disp: , Rfl: potassium chloride ER 20 mEq CR tablet, Take 2 tablets (40 mEq total) by mouth every morning, Disp:, Rfl: sucralfate (CARAFATE) 1 gram tablet, Take 2 tablets (2 g total) by mouth 2 (two) times a day as needed, Disp: , Rfl: magnesium citrate 100 mg tablet, Take 1 tablet by mouth every morning (Patient not taking: Reportedon 02/24/2023), Disp: , Rfl: metoprolol tartrate (LOPRESSOR) 25 mg immediate release tablet, TAKE 1 TABLET(25 MG) BY MOUTH TWICEDAILY, Disp: 180 tablet, Rfl: 1 Lab Results Component Value Date POTASSIUM 4.1 07/01/2022 BUNSER 14 07/01/2022 CREATININE 0.74 07/01/2022 CHOL 188 08/30/2015 TRIG 148 08/30/2015 LDL 94 08/30/2015 HDL 64 08/30/2015 Lab Results Component Value Date WBC 4.8 05/30/2021 HGB 14.8 05/30/2021 HCT 44.7 05/30/2021 MCV 89.0 05/30/2021 No results found for this or any previous visit (from the past 4 hour(s)). Lab Results Component Value Date POCCHOL 151 11/28/2022 POCHDL 74 11/28/2022 POCTRIG 140 11/28/2022 POCLDL 48 11/28/2022 POCNONHDL 76 11/28/2022 POCCHLPL 151 11/28/2022 Assessment: Diagnoses and all orders for this visit: Paroxysmal atrial fibrillation with rapid ventricular response (HCC) Microvascular angina - ECG 12 lead Chronic anticoagulation ICD (implantable cardioverter-defibrillator), dual, in situ Plan/Recommendations: She has a known history of PAF. She has been treated with diltiazem which she was on prior to developing atrial fibrillation due to history of microvascular angina. She is appropriately anticoagulated with Eliquis. In late May she developed AFib with RVR. She had inappropriate discharge of herICD while in AFib with RVR. Evaluation in the hospital include echocardiogram and coronary angiogram that were unremarkable. Diltiazem was increased to 360 mg daily but she still had high ventricularrate episodes within the past week. She feels weak and short of breath on the higher dose of diltiazem but no evidence of CHF on exam and recent normal echo and cath. I directed her reduced diltiazemback to 180 mg daily and start metoprolol tartrate 25 mg b.i.d.. Teaching was done with the patientand significant other regarding monitoring blood pressure and heart rate over the weekend while starting the metoprolol. I will reach out to Dr. Recio for further recommendations and follow-up withthe patient over the phone shortly. Apical variant hypertrophic cardiomyopathy with ICD implantation in May 2021. ICD is followed by [facility] 07/31/2023 MOLLY Landrum-PINA Nurse Practitioner with [facility] [place] Card[facility] This note is dictated and transcribed using [employer] Direct Software. Breaker Boss variancesmay occur. Despite proofreading, typographical errors may occur. EMAN EMAN documented in this encounter Plan of Treatment Not on file documented as of this encounter Procedures Procedure Name Priority Date/Time Associated Diagnosis Comments ECG 12-LEAD Routine 07/31/2023 Microvascular angina documented in this encounter Results * ECG 12 lead (07/31/2023) Yanni Dang NP ECG ORDERABLES Edited Re sult - Final documented in this encounter Visit Diagnoses Diagnosis Paroxysmal atrial fibrillation with rapid ventricular response (HCC) Microvascular angina (HCC) Chronic anticoagulation Encounter for long-term (current) use of anticoagulants ICD (implantable cardioverter-defibrillator), dual, in situ documented in this encounter Discontinued Medications Medication Sig Discontinue Reason Start Date End Da te calcium acetate,phosphat bind, (PHOSLO) 667 mg capsuleIndications:sup plement Take 2 capsules (1,334 mg total) by mouth every morning Therapy completed 07/31/2023 furosemide (LASIX) 40 mg tablet TAKE 1 TABLET BY MOUTH EVERY MORNING. DISCONTINUE THE FUROSEMIDE 20. THANK YOU Therapy completed 02/12/2023 07/31/2023 diltiazem (TIAZAC) 360 mg 24 hr capsule Take 1 capsule (360 mg total) by mouth daily Dose adjustment 07/06/2023 07/31/2023 documented as of this encounter Historical Medications * This list may reflect changes made after this encounter. diltiazem (TIAZAC) 180 mg 24 hr capsule Take 1 capsule (180 mg total) by mouth daily 08/04/2023 added in this encounter Care Teams Environmental Educator Relationship Specialty Start Date End Date Enmanuel Gan MD [address] [facility] [address] [place] [address] PCP - General Internal Medicine 04/26/20 Tg [place] MD [address] [facility] [address] [place] [address] Consulting Physician Cardiology 07/18/20 Guerrero Hunter DPT [address] [facility] [address] [address] Physical Therapist Physical Therapy 11/08/20 Guerrero Weiner, ELIAN [id number] [place] [address] Study Assistant Physical Therapy 12/12/20 documented as of this encounter
--- OUTSIDE RECORDS SUMMARY | 2024-07-12 08:43 | XMS_ITS | Encounter Summary ---
Author Organization [facility] Healthcare Address [address] [place] [address] Care Team Providers Care Church Organist Name Role Phone Enmanuel Gan MD Primary Care Provider [phone] Tg [place] MD Unavailable [phone] Guerrero Hunter DPT Unavailable [phone] Guerrero Weiner TRAFFIC CONTROLLER CABLE Unavailable [phone] Encounter Details Date Type Department Care Team (Late st Contact Info) Description 07/07/2023 Telephone [facility] Medical Group Cardiology [address] [place] [address] Jeremy Hobbs MD [address] [id number] Social History Tobacco Use Types Packs/Day Years [...] week 07/30/2020 How often do you attend [facility] or christian services? Never 07/30/2020 Do you belong to [...] on file Legal Sex Female 9:09 PM ETL DEVELOPER Gender Identity Not on file Sexual Orientation Lesbian 05/24/2019 9: 06 AM CDT documented as of this encounter Miscellaneous Notes * Telephone Encounter - Jennifer Oconnell RN - 07/07/2023 2:40 PM CST Spoke with pt. She was recently in hospital in [place] and had 2 ICD shocks and a LHC. Pt has had CP off and on since then. Pt scheduled to see MAF next Thursday. Pt also seeing PCP and advised to callhim as well. Pt advised to go to the ER for unrelieved CP. See previous tele notes DEVELOPER documented in this encounter Plan of Treatment Not on file documented as of this encounter Visit Diagnoses Not on filedocumented in this encounter Care Teams Church Organist Relationship Specialty Start Date End Date Enmanuel Gan MD [address] [place] [address] PCP - General Internal Medicine 04/26/20 Tg [place] MD [address] [facility] [address] [place] [address] Consulting Physician Cardiology 07/18/20 Guerrero Hunter DPT [address] [facility] [address] [place] [address] Physical Therapist Physical Therapy 11/08/20 Guerrero Weiner, TRAFFIC CONTROLLER CABLE [address] [facility] [address] [place] [address] Drying Room Supervisor Physical Therapy 12/12/20 documented as of this encounter
--- OUTSIDE RECORDS SUMMARY | 2024-07-12 08:43 | XMS_ITS | Encounter Summary ---
Author Organization [facility] Address [address] [place] [address] Phone Care Team Providers Care Prize Coordinator Name Role Phone Enmanuel Gan MD Primary Care Provider [phone] Tg Houston MD Unavailable [phone] Guerrero Hunter DPT Unavailable [phone] Guerrero Weiner HEALTH PRACTICE MANAGER Unavailable [phone] Reason for Referral * MRI/CAT/PET Scan (Routine) - Closed Specialty Diagnoses / Procedures Referred By Gigi t Referred To Contact Radiology Diagnoses Fusion of spine of lumbar region Lumbar radiculopathy Procedures MRI Lumbar Spine WO Contrast MRI Lumbar Spine WO Contrast Jeremy Michelle MD [facility] [place] [address] Phone: tel: fax: [address] [address] Referral ID Status Reason Start Date Expiration Date Visits Re quested Visits Authorized [id number] Closed 09/22/2023 03/20/2024 1 1 LY CHAIN PLANNER Reason for Visit * Reason Comments Post-op * Consultation (Routine) - Closed Specialty Diagnoses / Procedures Referred By Contac t Referred To Contact Orthopedic Surgery Diagnoses Right hip pain [facility] Orthopaedic Surgery [address] [place] [address] Phone: tel: fax: [facility] (All Locations) Referral ID Status Reason Start Date Expiration Date V isits Requested Visits Authorized [id number] Closed Specialty Services Required 03/10/2023 04/08/2024 3 3 Encounter Details Date Type Department Care Team (Late st Contact Info) Description 08/04/2023 8:20 AM SUPPLY CHAIN PLANNER Office Visit [facility] Orthopaedic Surgery [address] [facility] [address] [place] [address] [place] [address] Jeremy Michelle MD [address] [facility] [place] [address] Fusion of spine of lumbar region (Primary Dx); Lumbar radiculopathy Social History Tobacco Use Types Packs/Day Years [...] week 07/30/2020 How often do you attend [facility] or caodaism services? Never 07/30/2020 Do you [...] on file Legal Sex Female 9:09 PM SUPPLY CHAIN PLANNER Gender Identity Not on file Sexual Orientation Lesbian 05/24/2019 9: 06 AM CDT documented as of this encounter Last Filed Vital Signs Vital Sign Reading Time Taken Comments Blood Pressure - - Pulse - - Temperature - - Respiratory Rate - - Oxygen Saturation - - Inhaled Oxygen Concentration - - Weight 79.8 kg (176 lb) 08/04/2023 8:32 AM SUPPLY CHAIN PLANNER Height 165.1 cm (5' 5 ) 08/04/2023 8:32 AM SUPPLY CHAIN PLANNER Body Mass Index 29.29 08/04/2023 8:32 AM SUPPLY CHAIN PLANNER documented in this encounter Patient Instructions * Patient Instructions* Cyndie Byers RN - 08/04/2023 8:20 AM SUPPLY CHAIN PLANNER Thank you for your visit today we are pleased to be here to assist with your spine needs. Plan: Cardiac Clearance ENT Clearance Obtain MRI closer to surgery Contact office to discuss dates Surgery plan: Posterior spinal instrumented fusion Revision [id number] with osteotomies (?levels) Sincerely, Dr. Jeremy Michelle & Cyndie Modesta RN Please contact Dr. Miguel Angel Agee's Nurse if you have any questions. For Mailing information: Attn: Jeremy Michelle/ Cyndie HANEY [facility] Orthopedics [address] [place] [address] [id number] [place] [address] LY CHAIN PLANNER LY CHAIN PLANNER documented in this encounter Progress Notes * Jeremy Michelle MD - 08/04/2023 8:20 AM CST Established Patient Visit Interim History Macie Briseno returns to our office today for a postoperative follow-up visit. She is now approximately 3 years out from her posterior spinal instrumented fusion L1-L4 which was a revision due to a prior nonunion. This was done in 07/25/2020. Since then, she is had continued low back pain and some right leg pain which is very mild and she has been able to tolerate it and perform all the activities of her daily living. She subsequently developed right knee pain that has limited her ability to ambulate. She follows with Dr. An for [facility]. Overall, she states that her back pain is stable. Physical Examination 5/5 strength C5-T1 and L2-S1. No subjective weakness endorsed. SILT C5-T1 and L2-S1. Denies numbness or paresthesias in all dermatomal distributions. Br/Bicep 1+ Achilles 1+ Patella 2+ <2b clonus, nonreactive babinski, -hoffmans Review of Plain Radiographs/Studies Scoliosis radiographs of the whole spine were taken and independently reviewed by myself today which reveal posterior instrumented fusion at T12-L4 which is in the expected position. There is persistent osteolysis over the superior screws which is stable from prior imaging. She does appear to have some degeneration at the T12 level above the construct. There does not appear to be any implant failure in the sense of fracture, backing out or further loosening. 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 Impression/Diagnosis/Treatment Plan Macie is a 77-year-old male that is status post the above operation. 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 Today we had a long conversation about her diagnosis and goals of treatment at this point. Her back pain and truncal weakness is unchanged and we discussed that it may benefit revision PSF extending to T12 or T11. We will obtain MRI of the lumbar spine due to her right medial thigh pain. We discussed risks and befits of surgery and all questions/concerns were addressed. Saw Balderas M.D. Department of Orthopaedic Surgery, PGY-3 [facility] [place] Dr. Saw Balderas dictating using Fluency Direct. Dictation variances may occur. Attending attestation Pleasant 78-year-old female now 3 years out from her revision surgery. She had had a previous L2 topelvis surgery elsewhere with an iatrogenic flat back that developed a nonunion. 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 She remains intact in her bilateral upper lower extremities but with an increasing lean forward and increasing back pain in her thoracolumbar junction increasing sense of falling forward. When he review her previous course to now you can see that she has a PI of 65 and had a loss of lumbar lordosis after her original surgery that likely led to these issues. 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 She has thoracic loss of kyphosis consistent with her compensating and trying to stand up. She needs to be revised at least up to T10 and we need to look at what osteotomies we need to do to get her in a reasonable place. It is possible we need to revisit whether she can handle undergoing a pedicle subtraction oste otomy to get her in better alignment. I still do not know that we are going to need to do that but I am going to do some mass before we operate so we can see what osteotomies we need to do. My hope is it is T10 to pelvis revision with PCOS not PSOs given the side effects of each but we want to do the best thing obviously at this point. Risks and benefits of surgical intervention were reviewed at length with the patient today. Patientunderstands risk of , stroke, heart attack, paralysis, new neurological deficit, pain, infection, durotomy, need for reoperation, need for transfusion, bleeding, nonunion, pulmonary embolism or D VT, hematoma, or other complication in the operative and perioperative period. Patient understands the risks, questions were answered, and the patient wishes to proceed with surgery. Jeremy Michelle MD PhD Attending Spine Surgeon Chronic Disease Manager of Orthopaedic and Neurological Surgery [facility] Orthopaedics [facility] LY CHAIN PLANNER * Jeremy Michelle MD - 08/04/2023 8:20 AM CST LY CHAIN PLANNER documented in this encounter Plan of Treatment Not on file documented as of this encounter Results * MRI Lumbar Spine [...] it. Electronically signed by: Arcelia Pruitt M.D. Jeremy Michelle MD IMG MRI PROCEDURES F inal Result documented in this encounter Visit Diagnoses Diagnosis Fusion of spine of lumbar region- Primary Lumbar radiculopathy Thoracic or lumbosacral neuritis or radiculitis, unspecified Fusion of spine of lumbar region Lumbar radiculopathy Thoracic or lumbosacral neuritis or radiculitis, unspecified documented in this encounter Historical Medications * This list may reflect changes made after this encounter. Lagevkristin, EUA, 200 mg capsule (EUA) TAKE 4 CAPSULES BY MOUTH EVERY 12 HOURS FOR 5 DAYS 07/13/2023 09/16/2023 added in this encounter Care Teams Prize Coordinator Relationship Specialty Start Date End Date Enmanuel Gan MD [address] [facility] [place] [id number] PCP - General Internal Medicine 04/26/20 Tg Houston MD [address] [place] [address] Consulting Physician Cardiology 07/18/20 Guerrero Hunter DPT [address] [facility] [address] [address] Physical Therapist Physical Therapy 11/08/20 Guerrero Weiner PTA [address] [place] [address] Mortgage Processing Clerk Physical Therapy 12/12/20 documented as of this encounter
--- OUTSIDE RECORDS SUMMARY | 2024-07-12 08:43 | XMS_ITS | Encounter Summary ---
Author Organization [facility] Address [address] [place] [address] Phone Care Team Providers Care Real Estate Account Executive Name Role Phone Enmanuel Gan MD Primary Care Provider [phone] Tg Houston MD Unavailable [phone] Guerrero Hunter DPT Unavailable [phone] Guerrero Weiner PRIMING MIXTURE CARRIER Unavailable [phone] Reason for Visit * Cardiology (Routine) - Authorized Specialty Diagnoses / Procedures Referred By Contac t Referred To Contact Diagnoses ICD (implantable cardioverter-defibrillator ), dual, in situ Procedures DEVICE CHECK - IN OFFICE Cyndie Person NP Phone: tel: fax: [facility] (All Locations) Referral ID Status Reason Start Date Expiration Date V isits Requested Visits Authorized [id number] Authorized 08/24/2023 09/22/2024 24 24 Encounter Details Date Type Department Care Team (Late st Contact Info) Description 09/29/2023 1:30 PM CORPORATE ACCOUNT EXECUTIVE Office Visit [facility] Cardiology [address] [facility] 8th [place] [address] [place] [address] Cyndie Person NP [address] [facility] [address] [place] [address] ICD (implantable cardioverter-defibrilla tor), dual, in situ (Primary Dx); NICM (nonischemic cardiomyopathy) (CMS/HCC) (HCC); Apical variant hypertrophic cardiomyopathy (HCC); AV block, 2nd degree Social History Tobacco Use Types Packs/Day Years [...] often do you attend chur ch or temple services? Never 07/30/2020 Do you belong to [...] on file Legal Sex Female 9:09 PM CORPORATE ACCOUNT EXECUTIVE Gender Identity Not on file Sexual Orientation Lesbian 05/24/2019 9: 06 AM CDT documented as of this encounter Last Filed Vital Signs Vital Sign Reading Time Taken Comments Blood Pressure 123/75 09/29/2023 1:00 PM CORPORATE ACCOUNT EXECUTIVE Pulse 60 09/29/2023 1:00 PM CORPORATE ACCOUNT EXECUTIVE Temperature - - Respiratory Rate - - Oxygen Saturation 96% 09/29/2023 1:00 PM CORPORATE ACCOUNT EXECUTIVE Inhaled Oxygen Concentration - - Weight 79.5 kg (175 lb 3.2 oz) 09/29/2023 1:00 P M CORPORATE ACCOUNT EXECUTIVE Height 166.4 cm (5' 5.5 ) 09/29/2023 1:00 PM CORPORATE ACCOUNT EXECUTIVE Body Mass Index 28.71 09/29/2023 1:00 PM CORPORATE ACCOUNT EXECUTIVE documented in this encounter Patient Instructions * Patient Instructions* Cyndie Person NP - 09/29/2023 1:30 PM CORPORATE ACCOUNT EXECUTIVE Chest Xray before you leave today. If it is abnormal, we will contact you. Otherwise, proceed with your MRI as scheduled. ORATE ACCOUNT EXECUTIVE documented in this encounter Progress Notes * Cyndie Person NP - 09/29/2023 1:30 PM CST Consult Note - Cardiac Electrophysiology Patient Name: Macie Briseno Date of : 1945 Date of Visit: 09/29/2023 Referring: Dr. Yolande Cody I had the pleasure of seeing Macie Briseno in consultation at the [facility]. She is a 78 y.o. female with the following arrhythmia-specific history: Hypertrophic cardiomyopathy Second degree AV block Atrial fibrillation RVR with inappropriate ICD shocks 06/29/2023 ICD reprogrammed to VT zone at 188 bpm, no therapy No recurrent ICD shocks since then Dual chamber ICD - [employer] Generator: [employer] D152, implanted 06/05/2021 Atrial lead: [employer] 0672, implanted 06/05/2021 Right ventricular lead: [employer] 7841, implanted 06/05/2021 Macie Briseno is here today for MRI Clearance for lumbar spine MRI. Her ICD system is MR conditional. Her die cutter diamond is Dr. Ashvin Recio at [facility]. CURRENT MEDICATIONS: Current Outpatient Medications: alendronate (FOSAMAX) 70 mg tablet atorvastatin (LIPITOR) 20 mg tablet azelastine (ASTELIN) 137 mcg (0.1 %) nasal spray DILT-XR 180 mg 24 hr capsule doxepin (SINEquan) [address] (CYMBALTA) 60 mg capsule Eliquis 5 mg tablet fexofenadine-pseudoephedrine (THELMA-D) 60-120 mg per 12 hr tablet fluticasone (FLONASE) 50 mcg/actuation nasal spray furosemide (LASIX) 20 mg tablet HYDROcodone-acetaminophen (NORCO) 5-325 mg per tablet magnesium citrate 100 mg tablet metoprolol tartrate (LOPRESSOR) 25 mg immediate release tablet potassium chloride ER 20 mEq CR tablet sucralfate (CARAFATE) 1 gram tablet ALPRAZolam (XANAX) 0.25 mg tablet PHYSICAL EXAMINATION: Vitals: 09/29/23 1300 BP: 123/75 Pulse: 60 SpO2: 96% Weight: 79.5 kg (175 lb 3.2 oz) Height: 166.4 cm (5' 5.5 ) GENERAL: Alert and oriented, well-nourished, in no acute distress. HEENT: Mucous membranes are moist. Sclera anicteric. No thyromegaly or lymphadenopathy. LUNGS: Normal effort and respiratory rate. Lungs clear to auscultation bilaterally. HEART: Normal rate, regular rhythm. No murmurs, rubs, or gallops. ABDOMEN: Soft, non-tender, and non-distended. No hepatosplenomegaly. NEUROLOGIC/PSYCH: Alert and oriented x4. Calm and appropriate affect. Grossly normal bilateral motor function and sensation. VASCULAR: Extremities warm and well-perfused. All pulses intact. No edema. No JVD. SKIN: Left chest wall ICD site is well healed. No cyanosis, pallor, clubbing, or rashes. DIAGNOSTIC DATA: Labs Creatinine Date Value Ref Range Status 07/01/2022 0.74 0.60 - 1.10 mg/dL Final 05/30/2021 0.88 0.60 - 0.93 mg/dL Final Comment: For patients >49 years of age, the reference limit for Creatinine is approximately 13% higher for people identified as -Macanese. , Platelets Date Value Ref Range Status 05/30/2021 316 140 - 400 Thousand/uL Final , WBC Date Value Ref Range Status 05/30/2021 4.8 3.8 - 10.8 Thousand/uL Final , Total Hb, POC Date Value Ref Range Status 07/25/2020 12.1 11.9 - 15.5 g/dL Final Hgb Date Value Ref Range Status 05/30/2021 14.8 11.7 - 15.5 g/dL Final Device Interrogation 09/29/2023: Device type: [employer] dual chamber ICD Battery: 10.5 years Underlying rhythm: Sinus bradycardia 50s, the patient is not dependent AP: 22% BEAUTY SALES CONSULTANT: <1% Atrial lead: Imp 582 ohms, sensing 5.3 mV, capture 0.6 V @ 0.4 ms AT/AF burden: Imp 432 ohms, sensing >25 mV, capture 0.7 @ 0.4 ms Lead impedances, sensing, and thresholds are stable. Counters since 03/26/2023 show: 2 ICD shocks on 06/29/2023 for AF RVR, no VT/VF No programming changes CXR 09/29/2023: I have personally reviewed the chest Xray from today. Appropriate device placement, no fractured or abandoned leads. IMPRESSION: The current study is compared with the prior radiograph dated 06/05/2021 Cardiac pacer/defibrillator in place with leads terminating the right atrium and right ventricle. Partially imaged lumbar instrumented fusion. The lungs are clear. No pleural effusion or pneumothorax. The mediastinal contours and cardiac silhouette are stable. ASSESSMENT AND PLAN: Presence of Implanted Cardiac Device -Device interrogation performed (see interrogation results above) -CXR performed and reviewed with no evidence of epicardial leads, dislodged or abandoned leads, damaged leads, or leads with incompatible extenders or adaptors -Leads are > 6 weeks old -Device battery is not at YURIDIA -Device is an MRI conditional system and patient is assessed at STANDARD RISK -Will notify MRI of risk stratification and timing of scan will be determined by the radiology department; EP will be available by phone at [phone]. We will plan to see her back on an as needed basis, however we would be happy to see her sooner if needed. Cyndie Person, ANP-[facility] Division of Cardiology, [place] [address] [place] [address] 09/29/23 Cosigned by Jamaal Mendez MD PhD at 09/29/2023 3:07 PM CORPORATE ACCOUNT EXECUTIVE ORATE ACCOUNT EXECUTIVE ORATE ACCOUNT EXECUTIVE documented in this encounter Plan of Treatment Not on file documented as of this encounter Results * XR Chest Pa Lateral 2 Views (09/29/2023 2:02 PM CORPORATE ACCOUNT EXECUTIVE) Anatomical Region Laterality Modality Body, Chest N/A Computed Radiogr aphy 09/29/2023 2:11 PM CORPORATE ACCOUNT EXECUTIVE Impressions 09/29/2023 4:07 PM CORPORATE ACCOUNT EXECUTIVE The current study is compared with the prior radiograph dated 06/05/2021 Cardiac pacer/defibrillator in place with leads terminating the right atrium and right ventricle. ??Partially imaged lumbar instrumented fusion. The lungs are clear. ??No pleural effusion or pneumothorax. ??The mediastinal contours and cardiac silhouette are stable. Dictated by: Sadaf Clark MD The radiology attending physician has personally reviewed this study, and had reviewed and/or edited this written report and agrees with it. Electronically signed by: Camelia Mckeon M.D. Narrative 09/29/2023 4:07 PM CORPORATE ACCOUNT EXECUTIVE EXAMINATION: 2 view chest radiograph Procedure Note Camelia Mckeon MD - 09/29/2023 EXAMINATION: 2 view chest radiograph IMPRESSION: The current study is compared with the prior radiograph dated 06/05/2021 Cardiac pacer/defibrillator in place with leads terminating the right atrium and right ventricle. Partially imaged lumbar instrumented fusion. The lungs are clear. No pleural effusion or pneumothorax. The mediastinal contours and cardiac silhouette are stable. Dictated by: Sadaf Clark MD The radiology attending physician has personally reviewed this study, and had reviewed and/or edited this written report and agrees with it. Electronically signed by: Camelia Mckeon M.D. Cyndie Person OUTDOOR EMERGENCY CARE TECHNICIAN IMG XR PROCEDURES Final R esult documented in this encounter Visit Diagnoses Diagnosis ICD (implantable cardioverter-defibrillator), dual, in situ- Primary NICM (nonischemic cardiomyopathy) (CMS/HCC) (HCC) Apical variant hypertrophic cardiomyopathy (HCC) AV block, 2nd degree Other second degree atrioventricular block ICD (implantable cardioverter-defibrillator), dual, in situ NICM (nonischemic cardiomyopathy) (CMS/HCC) (HCC) documented in this encounter Discontinued Medications Medication Sig Discontinue Reason Start Date End Da te DULoxetine DR (CYMBALTA) 30 mg capsuleIndications:Anxi ety with Depression Take 3 capsules (90 mg total) by mouth every morning Therapy completed 12/21/2019 09/29/2023 documented as of this encounter Care Teams Real Estate Account Executive Relationship Specialty Start Date End Date Enmanuel Gan MD [address] [facility] [address] [place] [address] PCP - General Internal Medicine 04/26/20 Tg Houston MD [address] [facility] [address] [place] [address] Consulting Physician Cardiology 07/18/20 Guerrero Hunter DPT [address] [facility] [address] [facility] [place], [place] [id number] Physical Therapist Physical Therapy 11/08/20 Guerrero Weiner, [facility] [address] [place] [address] Engineer Process Physical Therapy 12/12/20 documented as of this encounter
--- OUTSIDE RECORDS SUMMARY | 2024-07-12 08:43 | XMS_ITS | Encounter Summary ---
Author Organization [facility] Address [address] [place] [address] Phone Care Team Providers Care Brokerage Office Manager Name Role Phone Enmanuel Gan MD Primary Care Provider [phone] Tg Houston MD Unavailable [phone] Guerrero Hunter DPT Unavailable [phone] Guerrero Weiner ROTARY PUMP OPERATOR Unavailable [phone] Reason for Visit * Reason Onset Date Comments Scheduling Appointments 07/13/2023 Encounter Details Date Type Department Care Team (Late st Contact Info) Description 07/13/2023 Telephone [facility] Orthopaedic Surgery [address] [facility] Advanced Medicine 6th [place] [address] [place] [address] Jeremy Michelle MD [address] [facility] [place] [address] Scheduling Appointments Social History Tobacco Use Types Packs/Day Years [...] attend chur ch or cheondoism services? Never 07/30/2020 Do you belong to [...] on file Legal Sex Female 9:09 PM SOLAR SYSTEMS DESIGNER Gender Identity Not on file Sexual Orientation Lesbian 05/24/2019 9: 06 AM CDT documented as of this encounter Miscellaneous Notes * Telephone Encounter - Cyndie Byers RN - 07/13/2023 8:50 AM SOLAR SYSTEMS DESIGNER Returned patient's call to reschedule her appt due to her being ill. Appt rescheduled and patient is aware of date and time. R SYSTEMS DESIGNER documented in this encounter Plan of Treatment Not on file documented as of this encounter Visit Diagnoses Not on filedocumented in this encounter Care Teams Brokerage Office Manager Relationship Specialty Start Date End Date Enmanuel Gan MD [address] [place] [address] PCP - General Internal Medicine 04/26/20 Tg Houston MD [address] [facility] [address] [place] [address] Consulting Physician Cardiology 07/18/20 Guerrero Hunter DPT [address] [facility] [address] [facility] [place] [address] Physical Therapist Physical Therapy 11/08/20 Guerrero Wenier, ROTARY PUMP OPERATOR [address] [facility] [address] [place] [address] Neonatal Icu Coordinator Physical Therapy 12/12/20 documented as of this encounter
--- OUTSIDE RECORDS SUMMARY | 2024-07-12 08:43 | XMS_ITS | Encounter Summary ---
Author Organization [facility] Healthcare Address [address] [place] [address] Care Team Providers Care Cdl Service Technician Name Role Phone Enmanuel Gan MD Primary Care Provider [phone] Tg Houston MD Unavailable [phone] Guerrero Hunter DPT Unavailable [phone] Guerrero Weiner DISPLAY DIRECTOR Unavailable [phone] Reason for Visit * Reason Onset Date Comments Latitude Alert: AF with RVR 07/28/2023 Encounter Details Date Type Department Care Team (Late st Contact Info) Description 07/28/2023 Telephone [facility] [address] [address] Ashvin Recio III, MD [address] [address] Latitude Alert: AF with RVR Social History Tobacco Use Types Packs/Day Years [...] attend chur ch or synagogue services? Never 07/30/2020 Do you belong to [...] on file Legal Sex Female 9:09 PM ALPINE GUIDE Gender Identity Not on file Sexual Orientation Lesbian 05/24/2019 9: 06 AM CDT documented as of this encounter Miscellaneous Notes * Telephone Encounter - Babita Bauer MA - 07/31/2023 11:35 AM CST Spoke with patient to notify of NEUROLOGY PHYSICIAN (Ivy) response/recommendation. NE GUIDE * Telephone Encounter - Ivy Alonso NP - 07/28/2023 10:41 AM ALPINE GUIDE Reviewed. If patient is doing better on increased dose of diltiazem and episodes and not persistent, would just continue to monitor. No further recommendations at this time. Thank you! Ivy NE GUIDE * Telephone Encounter - Babita Bauer MA - 07/28/2023 9:57 AM CST Images from the original note were not included. Latitude alert received multiple episodes classified as nonsustained ventricular arrhythmia. EGMs show multiple episodes per day of AF with RVR occurring between 23-Jul-2023 through 26-Jul-2023 with ventricular rates greater than 110 bpm, up to 170 bpm (longest: 1 hour 27 minutes, 18 seconds). AF burden as of 27-Jul-2023 is 4 %. Current EGM shows AP//VS at 60 bpm. Patient reports since diltiazem was increased to 360 MG daily that her symptoms of CP, SOB, and palpitations has improved but still present. She is currently in the process of searching for a new Procurement Intern and has plans to see Dr. Talbert at [facility] on Thursday. NE GUIDE documented in this encounter Plan of Treatment Not on file documented as of this encounter Visit Diagnoses Not on filedocumented in this encounter Care Teams Cdl Service Technician Relationship Specialty Start Date End Date Enmanuel Gan MD [address] [place] [address] PCP - General Internal Medicine 04/26/20 Tg Houston MD [address] [facility] [address] [place] [address] Consulting Physician Cardiology 07/18/20 Guerrero Hunter DPT [address] [facility] [address] [address] Physical Therapist Physical Therapy 11/08/20 Guerrero Weiner, DISPLAY DIRECTOR [address] [address] Quality Process Auditor Physical Therapy 12/12/20 documented as of this encounter
--- OUTSIDE RECORDS SUMMARY | 2024-07-12 08:43 | XMS_ITS | Encounter Summary ---
Author Organization [facility] Healthcare Address [address] [place] [address] Care Team Providers Care Manager Neonatal Name Role Phone Enmanuel Gan MD Primary Care Provider [phone] Tg Houston MD Unavailable [phone] Guerrero Hunter DPT Unavailable [phone] Guerrero Weiner TRUSS PULLER HELPER Unavailable [phone] Stephen Barth MD Unavailable [phone] Reason for Referral * MRI/CAT/PET Scan (Routine) - Closed Specialty Diagnoses / Procedures Referred By Contac t Referred To Contact Radiology Diagnoses Fusion of spine of lumbar region Alteration in nutrition Procedures CT Pelvis WO Contrast Jeremy Michelle MD [address] [facility] [place] [address] Phone: tel: fax: [address] [phone] Referral ID Status Reason Start Date Expiration Date Visits Re quested Visits Authorized [id number] Closed 10/20/2023 04/24/2024 1 1 * MRI/CAT/PET Scan (Routine) - Closed Specialty Diagnoses / Procedures Referred By Contac t Referred To Contact Radiology Diagnoses Fusion of spine of lumbar region Alteration in nutrition Procedures CT Thoracic Lumbar Spine WO Contrast Jeremy Michelle MD [address] [facility] [place] [address] Phone: tel: fax: [address] [phone] Referral ID Status Reason Start Date Expiration Date Visits Re quested Visits Authorized [id number] Closed 10/20/2023 04/24/2024 1 1 Reason for Visit * MRI/CAT/PET Scan (Routine) - Closed Specialty Diagnoses / Procedures Referred By Contac t Referred To Contact Radiology Diagnoses Fusion of spine of lumbar region Alteration in nutrition Procedures CT Pelvis WO Contrast Jeremy Michelle MD [address] [facility] [address], [place] [address] Phone: tel: fax: [address] [phone] Referral ID Status Reason Start Date Expiration Date Visits Re quested Visits Authorized [id number] Closed 10/20/2023 04/24/2024 1 1 Encounter Details Date Type Department Care Team (Latest Contact Info) Description 10/28/2023 3:34 PM CDT - 10/28/2023 11:59 PM CDT Hospital Encounter [facility] [address] [place] [id number] Fusion of spine of lumbar region; Alteration in nutrition Discharge Disposition: Discharge to home or self [...] attend chur ch or sikhism services? Never 07/30/2020 Do you belong to any clubs o r organizations such as jainism groups, unions, fraternal or athletic groups, or [...] on file Legal Sex Female 9:09 PM PRODUCTION CONTROL EXPERT Gender Identity Not on file Sexual Orientation [...] by mouth every morning 03/11/2023 fexofenadine-pseudo ephedrine (Kimberly-D 12 Hour) 60-120 mg per 12 hr tablet flutic tablet(s), 0 08/20/2023 fluticasone propionate (FLONASE) 50 mcg/actuation nasal spray 1 spray(s), Nasal, daily, 1 each, Tiro, 0 08/20/2023 sucralfate (Carafate) 1 gram tablet [...] times a day 04/23/2021 4 fexofenadine-pseudo ephedrine (KIMBERLY-D) 60-120 mg per 12 hr tabletIndications:A llergic [...] Procedure Name Priority Date/Time Associated Diagnosis Comments CT THORACIC LUMBAR SPINE WO CONTRAST Schedule Routine, Read Routine (OP Routine) 10/28/2023 4:00 PM CDT Fusion of spine of lumbar region Alteration in nutrition CT PELVIS WO CONTRAST Schedule Routine, Read Routine (OP Routine) 10/28/2023 4:00 PM CDT Fusion of spine of lumbar region Alteration in nutrition documented in this encounter Results * CT Pelvis WO Contrast (10/28/2023 4:00 PM CDT) Anatomical Region Laterality Modality Body N/A Computed Tomogra phy 10/28/2023 4:53 PM CDT Impressions 10/28/2023 4:53 PM CDT 1. ??Preoperative planning CT for spinal fusion revision. Dictated by: Edgar Pichardo M.D. The radiology attending physician has personally reviewed this study, and had reviewed and/or edited this written report and agrees with it. Electronically signed by: Dereck Soni M.D. Narrative 10/28/2023 4:53 PM CDT EXAMINATION: CT PELVIS WO CONTRAST HISTORY: 78 years-old Female with preop for spinal fusion revision. TECHNIQUE: Transaxial computed tomographic images of the pelvis were obtained without the use of intravenous contrast. ??Coronal and sagittal ??reformations were performed and also reviewed. COMPARISON: Pelvis radiograph 07/09/2022 FINDINGS: No acute fracture or subluxation. ??There is partially imaged lower lumbar posterior decompression and instrumented fusion. ??There are osseous graft sites along the bilateral iliac bones. ??There is degenerative change of the pubic symphysis. ??Mild bilateral sacroiliac joint osteoarthritis. ??There are bilateral total hip arthroplasties in near-anatomic position. ??There is stress shielding without osteolysis or periprosthetic fracture. There is atrophy of the bilateral adductor compartments, right greater than left gluteus minimus and medius muscles, and the intrinsic muscles of the back. ??Atherosclerotic calcification. ??No inguinal lymphadenopathy. ??Visualized pelvic viscera is unremarkable. Procedure Note Dereck Soni MD - 10/28/2023 EXAMINATION: CT PELVIS WO CONTRAST HISTORY: 78 years-old Female with preop for spinal fusion revision. TECHNIQUE: Transaxial computed tomographic images of the pelvis were obtained without the use of intravenous contrast. Coronal and sagittal reformations were performed and also reviewed. COMPARISON: Pelvis radiograph 07/09/2022 FINDINGS: No acute fracture or subluxation. There is partially imaged lower lumbar posterior decompression and instrumented fusion. There are osseous graft sites along the bilateral iliac bones. There is degenerative change of the pubic symphysis. Mild bilateral sacroiliac joint osteoarthritis. There are bilateral total hip arthroplasties in near-anatomic position. There is stress shielding without osteolysis or periprosthetic fracture. There is atrophy of the bilateral adductor compartments, right greater than left gluteus minimus and medius muscles, and the intrinsic muscles of the back. Atherosclerotic calcification. No inguinal lymphadenopathy. Visualized pelvic viscera is unremarkable. IMPRESSION: 1. Preoperative planning CT for spinal fusion revision. Dictated by: Edgar Pichardo M.D. The radiology attending physician has personally reviewed this study, and had reviewed and/or edited this written report and agrees with it. Electronically signed by: Dereck Soni M.D. us Jeremy Michelle MD IMG CT PROCEDURES Fi nal Result * CT Thoracic Lumbar Spine WO Contrast (10/28/2023 4:00 PM CDT) Anatomical Region Laterality Modality Spine N/A Computed Tomogra phy 10/29/2023 11:3 7 AM CDT Impressions 10/29/2023 6:00 PM CDT 1. ??Postoperative changes consistent with posterior instrumented fusion at L1-L4 with significant loosening of the bilateral transpedicular screws at L1. 2. ??Degenerative changes of the thoracolumbar spine as detailed above. Dictated by: Arias Hardy MD The radiology attending physician has personally reviewed this study, and had reviewed and/or edited this written report and agrees with it. Electronically signed by: Edmund Ritter MD, PHD Narrative 10/29/2023 6:00 PM CDT EXAMINATION: 1. CT of the thoracic spine without contrast 2. CT of the lumbar spine without contrast HISTORY: Back pain. Numbness around knees and L3 area. Surgical planning. TECHNIQUE: CT of the thoracic spine was performed according to standard protocol without intravenous contrast. CT of the lumbar spine was performed according to the standard protocol without intravenous contrast. COMPARISON: 10/07/2023 FINDINGS: THORACIC SPINE: There are 12 rib-bearing thoracic vertebra. The alignment of the thoracic spine is normal. There is no acute fracture. Vertebral bodies are normal in height without compression fractures. Intervertebral disk heights are normal. Incompletely visualized cardiac pacer leads. Mild thoracic aortic atherosclerosis . Prior cholecystectomy. Small posterior disc bulges/herniations noted predominately throughout the lower thoracic spine. There is mild to moderate facet hypertrophy, predominantly along the lower thoracic spine. There is no high-grade spinal canal or neuroforaminal stenosis. LUMBAR SPINE: Postoperative changes consistent with instrumented posterior and anterior fusion at L1-L4. Interbody fusion and laminectomies at L2-L3 to L5-S1. Significant loosening of the bilateral transpedicular screws at L1. Levocurvature of the lumbar spine and slight retrolisthesis of L1 on L2. There is no acute fracture. The vertebral bodies are normal in height without compression fractures. Intervertebral disc space narrowing and vacuum disc phenomenon noted at T10-T11 to L1-L2. Postprocedural changes of the bilateral iliacs. Abdominal aortic atherosclerosis. Posterior disc bulges at T12-L1 and L1-L2. There is moderate to severe facet arthropathy at T12-L1 and L1-L2. There is hoxa-gk-basjudsm neuroforaminal narrowing on the right at L1-L2 and on the left at L2-L3. There is no high-grade spinal canal stenosis. Procedure Note Edmund Ritter MD PhD - 10/29/2023 EXAMINATION: 1. CT of the thoracic spine without contrast 2. CT of the lumbar spine without contrast HISTORY: Back pain. Numbness around knees and L3 area. Surgical planning. TECHNIQUE: CT of the thoracic spine was performed according to standard protocol without intravenous contrast. CT of the lumbar spine was performed according to the standard protocol without intravenous contrast. COMPARISON: 10/07/2023 FINDINGS: THORACIC SPINE: There are 12 rib-bearing thoracic vertebra. The alignment of the thoracic spine is normal. There is no acute fracture. Vertebral bodies are normal in height without compression fractures. Intervertebral disk heights are normal. Incompletely visualized cardiac pacer leads. Mild thoracic aortic atherosclerosis . Prior cholecystectomy. Small posterior disc bulges/herniations noted predominately throughout the lower thoracic spine. There is mild to moderate facet hypertrophy, predominantly along the lower thoracic spine. There is no high-grade spinal canal or neuroforaminal stenosis. LUMBAR SPINE: Postoperative changes consistent with instrumented posterior and anterior fusion at L1-L4. Interbody fusion and laminectomies at L2-L3 to L5-S1. Significant loosening of the bilateral transpedicular screws at L1. Levocurvature of the lumbar spine and slight retrolisthesis of L1 on L2. There is no acute fracture. The vertebral bodies are normal in height without compression fractures. Intervertebral disc space narrowing and vacuum disc phenomenon noted at T10-T11 to L1-L2. Postprocedural changes of the bilateral iliacs. Abdominal aortic atherosclerosis. Posterior disc bulges at T12-L1 and L1-L2. There is moderate to severe facet arthropathy at T12-L1 and L1-L2. There is fwkm-nq-soagvksp neuroforaminal narrowing on the right at L1-L2 and on the left at L2-L3. There is no high-grade spinal canal stenosis. IMPRESSION: 1. Postoperative changes consistent with posterior instrumented fusion at L1-L4 with significant loosening of the bilateral transpedicular screws at L1. 2. Degenerative changes of the thoracolumbar spine as detailed above. Dictated by: Arias Hardy MD The radiology attending physician has personally reviewed this study, and had reviewed and/or edited this written report and agrees with it. Electronically signed by: Edmund Ritter MD, PHD Jeremy Michelle MD IMG CT PROCEDURES Fi nal Result documented in this encounter Visit Diagnoses Diagnosis Fusion of spine of lumbar region Alteration in nutrition documented in this encounter Care Teams Manager Neonatal Relationship Specialty Start Date End Date Enmanuel Gan MD [address] [facility] [address] [place] [address] PCP - General Internal Medicine 04/26/20 Tg Houston MD [address] [facility] [address] [place] [address] Consulting Physician Cardiology 07/18/20 Guerrero Hunter DPT [address] [facility] [address] [facility] [place] [address] Physical Therapist Physical Therapy 11/08/20 Guerrero Weiner, [facility] [address] [facility] [address] [place], [place] [id number] Nuisance Wildlife Control Operator Physical Therapy 12/12/20 Stephen Barth MD [address] [facility] [address] [place] [address] Referring Physician Transplant 10/19/23 documented as of this encounter
--- OUTSIDE RECORDS SUMMARY | 2024-07-12 08:43 | XMS_ITS | Encounter Summary ---
Author Organization [facility] Address [address] [place] [address] Phone Care Team Providers Care Milk Processing Worker Name Role Phone Enmanuel Gan MD Primary Care Provider [phone] Tg Houston MD Unavailable [phone] Guerrero Hunter DPT Unavailable [phone] Guerrero Weiner HARD CANDY BATCH MIXER Unavailable [phone] Stephen Barth MD Unavailable [phone] Reason for Visit * Reason Onset Date Comments Medical Question/Miscellaneous 11/25/2023 Encounter Details Date Type Department Care Team (Late st Contact Info) Description 11/25/2023 Telephone [facility] Orth[facility] Surgery [address] [facility] Advanced Medicine 6th [place] [address] [place] [address] Jeremy Michelle MD [address] [facility] [address] [place] [address] Medical Question/Miscellaneous Social History Tobacco Use Types Packs/Day Years [...] attend chur ch or hinduism services? 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 She is very hoarse and her PCP wants to start her on prednisone. She has surgery on 12/02/23 with Miguel Angel and Cyndie is on vacation. I asked ANTONIETA and Ashia was this ok. They said it is ok for her to take the med but she has to stop it 24 hrs prior to surgery and she can't have a cough or a fever 24 hrs prior to surgery. She is going to call me in the AM on 12/01/23 to give mean update. Asked her to write all my instructions down and she did. She thanked me for the call. Creta~ documented in this encounter Plan of Treatment Not on file documented as of this encounter Visit Diagnoses Not on filedocumented in this encounter Care Teams Milk Processing Worker Relationship Specialty Start Date End Date Enmanuel Gan MD [address] [facility] [address] [place] [address] PCP - General Internal Medicine 04/26/20 Tg Houston MD [address] [facility] [address] [place] [address] Consulting Physician Cardiology 07/18/20 Guerrero Hunter DPT [address] [facility] [address] [place] [address] Physical Therapist Physical Therapy 11/08/20 Guerrero Weiner, HARD CANDY BATCH MIXER [address] [facility] [address] [place] [address] Reviewer Sales Physical Therapy 12/12/20 Stephen Barth MD [address] [facility] [address] [place] [address] Referring Physician Transplant 10/19/23 documented as of this encounter
--- OUTSIDE RECORDS SUMMARY | 2024-07-12 08:43 | XMS_ITS | Encounter Summary ---
Author Organization [facility] Healthcare Address [address] [place] [address] Care Team Providers Care Assembly Detailer Name Role Phone Enmanuel Gan MD Primary Care Provider Tg Houston MD Unavailable [phone] Guerrero Hunter DPT Unavailable [phone] Guerrero Weiner BUSINESS PERFORMANCE SPECIALIST Unavailable [phone] Stephen Barth MD Unavailable [phone] Encounter Details Date Type Department Care Team (Late st Contact Info) Description 10/20/2023 10:20 AM CDT Lab [facility] ([facility]) [address] [place] [id number] Fusion of spine of lumbar region; Alteration in nutrition; Vitamin D deficiency Social History Tobacco Use Types Packs/Day Years [...] week 07/30/2020 How often do you attend [facility] or yazidi services? Never 07/30/2020 Do you belong to [...] on file Legal Sex Female 9:09 PM [employer] Gender Identity Not on file Sexual Orientation Lesbian 05/24/2019 9: 06 AM CDT documented as of this encounter Plan of Treatment Not on file documented as of this encounter Procedures Procedure Name Priority Date/Time Associated Diagnosis Comments DIFFERENTIAL AUTO Routine 10/20/2023 10: 04 AM CDT Fusion of spine of lumbar region Alteration in nutrition CBC WITH AUTO DIFFERENTIAL Routine 10/20/2023 10:04 AM CDT Fusion of spine of lumbar region Alteration in nutrition VITAMIN D 25 HYDROXY Routine 10/20/2023 10:04 AM CDT Fusion of spine of lumbar region Alteration in nutrition Vitamin D deficiency TRANSFERRIN Routine 10/20/2023 10:04 AM CDT Fusion of spine of lumbar region Alteration in nutrition PREALBUMIN Routine 10/20/2023 10:04 AM CDT Fusion of spine of lumbar region Alteration in nutrition documented in this encounter Results * Differential, auto (10/20/2023 10:04 AM CDT) Neutrophil abs 3.1 1.5 - 6.5 K/cumm Imm gran abs 0.0 0.0 - 0.1 K/cumm [facility] Lymphocyte abs 1.9 0.8 - 3.3 K/cumm [facility] Monocyte abs 0.5 0.2 - 0.8 K/cumm [facility] Eosinophil abs 0.1 0.0 - 0.5 K/cumm [facility] Basophil abs 0.1 0.0 - 0.1 K/cumm [facility] Neutrophil pct 54.6 % [facility] Comment: Interpretive Data Percent cell count reference ranges are not reported, since discordance with absolute values may lead to misinterpretation of CBC data. Current Interpretive Data was last revised on 2017. Imm gran pct 0.4 % [facility] Comment: Interpretive Data Percent cell count reference ranges are not reported, since discordance with absolute values may lead to misinterpretation of CBC data. Current Interpretive Data was last revised on 2017. Lymphocyte pct 33.2 % [facility] Comment: Interpretive Data Percent cell count reference ranges are not reported, since discordance with absolute values may lead to misinterpretation of CBC data. Current Interpretive Data was last revised on 2017. Monocyte pct 8.4 % [facility] Comment: Interpretive Data Percent cell count reference ranges are not reported, since discordance with absolute values may lead to misinterpretation of CBC data. Current Interpretive Data was last revised on 2017. Eosinophil pct 2.3 % [facility] Comment: Interpretive Data Percent cell count reference ranges are not reported, since discordance with absolute values may lead to misinterpretation of CBC data. Current Interpretive Data was last revised on 2017. Basophil pct 1.1 % [facility] Comment: Interpretive Data Percent cell count reference ranges are not reported, since discordance with absolute values may lead to misinterpretation of CBC data. Current Interpretive Data was last revised on 2017. Blood 10/20/2023 10:0 4 AM CDT 10/20/2023 10:17 AM CDT Jeremy Michelle MD LAB BLOOD ORDERABLES Final Result Performing Organization Address City/[facility] Co de Phone Number [facility] [place] [address] * Transferrin (10/20/2023 10:04 AM CDT) Transferrin 271 200 - 360 mg/dL Blood 10/20/2023 10:0 4 AM CDT 10/20/2023 10:17 AM CDT Jeremy Michelle MD LAB BLOOD ORDERABLES Final Result Performing Organization Address [facility] Co de Phone Number [facility] [place] [address] * Prealbumin (10/20/2023 10:04 AM CDT) Prealbumin 26.0 20.0 - 40.0 mg/dL Blood 10/20/2023 10:0 4 AM CDT 10/20/2023 10:17 AM CDT Jeremy Michelle MD LAB BLOOD ORDERABLES Final Result Performing Organization Address City/[facility] Co de Phone Number [facility] [place] [address] * CBC with auto differential (10/20/2023 10:04 AM CDT) [facility] WBC 5.6 3.8 - 9.9 K/cumm Hgb 14.8 11.9 - 15.5 g/dL [facility] Hct 44.5 35.6 - 45.5 % [facility] Plt 293 150 - 400 K/cumm [facility] MPV 10.0 9.1 - 12.3 fL [facility] RBC 5.18 3.90 - 5.20 M/cumm [facility] MCV 85.9 81.3 - 96.4 fL [facility] MCH 28.6 27.1 - 33.3 pg [facility] MCHC 33.3 32.3 - 35.7 g/dL [facility] RDW CV 14.8 11.1 - 14.9 % [facility] RDW SD 46.8 35.7 - 48.1 fL [facility] NRBC abs 0.00 0.00 - 0.01 K/cumm [facility] Blood 10/20/2023 10:0 4 AM CDT 10/20/2023 10:17 AM CDT Jeremy Michelle MD LAB BLOOD ORDERABLES Final Result Performing Organization Address City/[facility] Co de Phone Number [facility] [place] [address] * Vitamin D 25 hydroxy (10/20/2023 10:04 AM CDT) [facility] Vitamin D 25-OH 33 30 - 80 ng/mL Blood 10/20/2023 10:0 4 AM CDT 10/20/2023 10:17 AM CDT Jeremy Michelle MD LAB BLOOD ORDERABLES Final Result Performing Organization Address [facility]/ZIP Co de Phone Number [facility] [place] [address] documented in this encounter Visit Diagnoses Diagnosis Fusion of spine of lumbar region Alteration in nutrition Vitamin D deficiency documented in this encounter Care Teams Assembly Detailer Relationship Specialty Start Date End Date Enmanuel Gan MD [address] [facility] [address] [place] [address] PCP - General Internal Medicine 04/26/20 Tg Houston MD [address] [place] [address] Consulting Physician Cardiology 07/18/20 Guerrero Hunter DPT [address] [facility] [address] [facility] [place] [address] Physical Therapist Physical Therapy 11/08/20 Guerrero Weiner, [facility] [id number] [place] [address] Service Administrator Physical Therapy 12/12/20 Stephen Barth MD [address] [place] [address] Referring Physician Transplant 10/19/23 documented as of this encounter
--- OUTSIDE RECORDS SUMMARY | 2024-07-12 08:43 | XMS_ITS | Encounter Summary ---
Author Organization [facility] Healthcare Address [address] [place] [address] Care Team Providers Care Human Resources Project Coordinator Name Role Phone Enmanuel Gan MD Primary Care Provider [phone] Tg Houston MD Unavailable [phone] Guerrero Hunter DPT Unavailable [phone] Guerrero Weiner SUPERVISOR ENGINE ASSEMBLY Unavailable [phone] Stephen Barth MD Unavailable [phone] Reason for Visit * Auth/Cert (Routine) Specialty Diagnoses / Procedures Referred By Contac t Referred To Contact Diagnoses Fusion 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 Fusion of spine of lumbar region [M43.26] Pseudoarthrosis of lumbar spine [S32.009K] Procedures WV ARTHRODESIS POSTERIOR/PSTLAT TQ 1NTRSPC LUMBAR WV ARTHRODESIS PST/PSTLAT TQ 1NTRSPC EA ADDL NTRSPC WV POSTERIOR SEGMENTAL INSTRUMENTATION 7-12 VRT SEG WV PELVIC FIXATION OTHER THAN SACRUM WV OSTEOTOMY SPINE PST/PSTLAT APPR 1 VRT SGM LMBR WV OSTEOT SPI PST/PSTLAT APPR 1 VRT SGM EA VRT SGM WV AUTOGRAFT SPINE SURGERY LOCAL FROM SAME INCISION WV ALLOGRAFT FOR SPINE SURGERY ONLY MORSELIZED FUSION DECOMPRESSION LAMINECTOMY WITH INSTRUMENTATION - Gogiro EXPEDIUM--Posterior spinal instrumented fusion revision [id number] with posterior column osteotomies T12/L1 and L1/2, exploration of fusion, removal of hardware, autograft, allograft, bone morphogentic protein, spinal cord monitoring. REMOVAL HARDWARE SPINE OSTEOTOMY POSTERIOR SPINAL SPINAL CORD MONITORING BONE GRAFT WITH BONE MORPHOGENIC PROTEIN Referral ID Status Reason Start Date Expiration Date Visits Re quested Visits Authorized [id number] 1 1 Encounter Details Date Type Department Care Team (Late st Contact Info) Description 12/02/2023 9:07 AM CDT Anesthesia Event [facility] Operating Room 1 [facility] [place] [address] Steve Hedrick MD [address] [place] [address] Bonnie Moe NP [address] [place] [address] Anesthesia Record Procedure Summary Procedure Name Responsible Anesthesiologist Anesthesia Start Time Anesthesia Stop Time FUSION DECOMPRESSION LAMINECTOMY WITH INSTRUMENTATION - DEPUY EXPEDIUM--Posterior spinal instrumented fusion revision [id number] with posterior column osteotomies T12/L1 and L1/2, exploration of fusion, removal of hardware, autograft, allograft, bone morphogentic protein, spinal cord monitoring. (Spine Thoracic) Steve Hedrick MD 12/02/23 0907 12/02/23 1818 Events Date Time Event Comment 12/02/2023 0704 In Preop 0800 0907 An Start 0909 In Room 0910 An Start Data 0910 Quick Note R2 pads placed on patient, ICD function turned off per BS rep in pre-op area. Dr. Michelle requests prone view pillow (instead of GWT) due to patients cochlear implant. 0922 An Induction The patient was reevaluated immediately before moderate or deep sedation use and before anesthesia induction. 0923 An Intubation 0955 Anesthesia Ready 1027 Patient Positioned Prone 1118 Quick Note Arterial line p oor wave form. Hematoma noted at site. Arterial line infiltrated -, a line removed, no bleeding. Pressure Held and pressure dressing applied. 1121 Proc Start 1121 Incision Start 1200 Quick Note Multiple attemp ts made to place a line. Pt has poor targets as mentioned earlier. R radial attempted x1. L radial attempted x1. No success. DP left attempted x1. All targets visualized with ultrasound. Small targets seen. Right brachial attempted x1 unable to tread catheter. L attempted with good success. All attempts done in sterile manner and prepped with alcohol. Family called and given update regarding expectation to see hematoma/bruising on right and left arms. Family appreciated the update. 1225 Quick Note Patient HR sudd enly increased >100 and ABP decreased rapidly to SBP 60. Surgeon notified. BP treated HR returned to paced rhythm of 60 1405 Magnet placed over ICD 1406 Quick Note Patient HR sudd enly increased >100 and ABP decreased rapidly to SBP 60. Surgeon notified. Unable to detect rhythm as artifact noted from bovie, EMBEDDED SYSTEMS ENGINEER noticed a change in rate and pressure from arterial line waveform. This happened three more times in a matter of minutes, surgeon and Dr. Hedrick aware. Notes reviewed from ICD. After runs of tachycardia resolved pt continued to be paced normally an BP returned to normal. No pacer inhibition noted throughout case. Runs of tachycardia lasted no more than 15 seconds each. This occurred 4 times. 1617 Anes Handoff 1620 Quick Note Eyes, ears, & n ose remain free of pressure. 1756 Position Supine 1800 An Extubation 1802 Proc Fin 1805 an stop data 1807 Out of Room 181 Handoff to RN I completed my handoff to the receiving nurse during which we: 1. Patient identified 2. Responsible provider identified 3. Pertinent medical history reviewed 4. Procedure type and surgical course discussed 5. Intraoperative anesthetic management and any significant issues discussed 6. Expectations and concerns for postop period discussed 7. Questions solicited from receiving nurse 8. Patient disposition at the time of handoff: PACU 1817 An Stop 1947 Release from [facility] Name Total midazolam PF 2 mg lidocaine (cardiac) syringe 2 % 60 mg propofol 115 mg propofol 4,204.26 mg fentaNYL 250 mcg rocuronium 40 mg succinylcholine 100 mg phenylephrine 100 mcg/mL 1,300 mcg ePHEDrine 50 mg ondansetron PF (ZOFRAN) 2 mg/mL injectio n 4 mg glycopyrrolate 0.5 mg phenylephrine infusion (100 mcg/mL) 29.6 3 mg dexmedeTOMIDine infusion 200mcg/50mL 25. 27 mcg norepinephrine 24 mcg ketamine 10 mg/mL 50 mg ceFAZolin 4,000 mg vancomycin 1,500 mg/515 mL 1,500 mg tranexamic acid 1,600 mg methadone 10 mg/mL 20 mg tranexamic acid 10 mg/mL 100 mL (premix) 2,520.35 mg magnesium sulfate 2 g/50 mL 2 g calcium chloride 1 g potassium chloride 40 mEq/520 mL in sodi um chloride 0.9% (premix) 40 mEq 40 mEq neostigmine injection 1 mg/mL 3 mg Lactated Ringer's (LR) infusion 1,000 mL LR 2,000 mL albumin human bottle 5 % 250 mL * Agents Name O2% N2O O2 N2O Air * Blood No blood administrations on file. Lines, Drains, and Airways Type Details Placement Removal Cochlear Implant 06/19/20; 1200 06/19/20 1200 b Marissa Jean BS Hearing Aid 07/15/22; 1220 07/15/22 1220 by Kathleen Marcum RETIRED Surgical Site 07/25/20; 1313; Ba ck; xeroform 4x4 tegaderm; 12/03/23; 1859; Not present on admission (from previous admission) 07/25/20 1313 by Gianna Good RN 12/03/23 1859 by Claudia Jerez, MEDINA Peripheral IV Placement Date: 12/02/23; Placement Time: 0803; Catheter Size: 20 G; Orientation: Left, Posterior; Location: Wrist; Removal Date: 12/07/23; Removal Time: 0715; Removal Reason: Catheter damage 12/02/23 0803 by Dalia Betts RN 12/07/23 0715 by Jeannie Genao RN Urethral Catheter Placement Date: 12/02/23; Placement Time: 1012; Inserted by: Levy Santoro RN; Type: Straight-tip, Temperature probe; Balloon Size: 10 mL; Urine Returned: Yes; Removal Date: 12/05/23; Removal Time: 1400; Removal Reason: Per order 12/02/23 1012 by Wendi Santoro RN 12/05/23 1400 by Joey Velasquez, MEDINA Peripheral IV Placement Date: 12/02/23; Placement Time: 1042 (created via procedure documentation); Catheter Size: 18 G; Orientation: Right; Location: Hand; Site Prep: Alcohol; Insertion Attempts: 2; Removal Date: 12/03/23; Removal Time: 2100; Removal Reason: Infiltrated 12/02/23 1042 by Tee Carver 12/03/23 2100 by Claudia Jerez RN Arterial Line Placement Date: 12/02/23; Placemnt Time: 1049 (created via procedure documentation); Size: 20 G; Location: Radial; Securement: Transparent dressing; Removal Date: 12/02/23; Removal Time: 1600 12/02/23 1049 by Steve Hedrick MD 12/02/23 1600 by Lucille Love RN Arterial Line Placement Date: 12/02/23; Placemnt Time: 1209 (created via procedure documentation); Size: 20 G; Orientation: Left; Location: Brachial; Securement: Taped, Transparent dressing; Removal Date: 12/03/23; Removal Time: 185; Removal Reason: Removed by unknown clinician (Comment) (not present during shift change) 12/02/23 1209 by Tee Carver 12/03/23 1859 by Claudia Jerez RN ETT Placement Date: 12/02/23; Placement Time: 1210 (created via procedure documentation); Mask Ventilation: 0; Technique: Video laryngoscopy; Type: ETT - single; Single Lumen Tube Size: 7 mm; Cuffed: Yes; Laryngoscope: Liane; Blade Size: 3; Location: Oral; Grade View: Grade I; Insertion Attempts: 1; Placement Verification: Auscultation, Capnometry; Removal Date: 12/02/23; Removal Time: 1800 12/02/23 1210 by Tee Carver 12/02/23 1800 by Belén Casarez CRNA Closed/Suction/Open Drain 12/02/23; 1726; 1; Right; Back; Bulb 12/02/23 1726 by Tabby Cuadra RN 12/07/23 0000 by Gabriel Harmon NP RETIRED Surgical Site 12/02/23; 1727; No ; Mid-line; Back; 02/02/24 12/02/23 1727 by Tabby Cuadra RN 02/02/24 0000 by Margi Coelho documented in this encounter Social History Tobacco Use Types Packs/Day Years [...] attend chur ch or jew services? 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 Gender Identity Not on file Sexual Orientation Lesbian 05/24/2019 9: 06 AM CDT documented as of this encounter OR Notes * Anesthesia Postprocedure Evaluation - Kristine Sena MD - 12/02/2023 7:46 PM CDT Patient: Macie Briseno Procedure Summary Date: 12/02/23 Room / Location: [facility] OR POD 5 ROOM 235 / [facility] OR POD 5 Anesthesia Start: 906 Anesthesia Stop: 1817 Procedures: FUSION DECOMPRESSION LAMINECTOMY WITH INSTRUMENTATION - DEPUY EXPEDIUM--Posterior spinal instrumented fusion revision [id number] with posterior column osteotomies T12/L1 and L1/2, exploration of fusion, removal of hardware, autograft, allograft, bone morphogentic protein, spinal cord monitoring. (Spine Thoracic) REMOVAL HARDWARE SPINE (Spine Thoracic) OSTEOTOMY POSTERIOR SPINAL (Spine Lumbar) SPINAL CORD MONITORING BONE GRAFT WITH BONE MORPHOGENIC PROTEIN Diagnosis: Fusion 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 (Fusion of spine of lumbar region [M43.26]) (Pseudoarthrosis of lumbar spine [S32.009K]) Surgeons: Jeremy Michelle MD Responsible Provider: Steve Hedrick MD Anesthesia Type: general, general TIVA ASA Status: 3 Anesthesia Type: No value filed. Last vitals BP 108/48 Pulse 69 Temp 36.2 ??C (97.2 ??F) (Temporal) Resp 15 SpO2 94% Anesthesia Post Evaluation Patient location during evaluation: PACU Patient participation: complete - patient participated Level of consciousness: arouses recreational programs director Pain score: 3 Pain management: satisfactory to patient (RESEARCH ANTHROPOLOGIST) Airway patency: adequate Evidence of recall: no Cardiovascular status: hemodynamically stable (AICD turned back on by [employer]) Respiratory status: acceptable and nasal cannula Hydration status: euvolemic Pt is: normothermic Nausea/Vomiting status: resolved and none Comments: OK to DC to floor with Arterial line in place No notable events documented. * Anesthesia Procedure Notes - Tee Carver - 12/02/2023 12:09 PM CDT Associated Order(s): Airway Airway Patient location: OR Urgency: elective Indications for airway management: anesthesia Difficult airway: no Staff: Supervising provider: Steve Hedrick MD Placed by: Other staff: Tee Carver Emergent airway documentation: Risks and benefits discussed: yes Consent obtained: yes Consent given by: patient Airway prep: Preoxygenated: yes Patient position: sniffing Mask difficulty assessment: 0 - not attempted Spontaneous ventilation during airway: absent Sedation level during airway: GA Final airway details: Final airway type: endotracheal airway Tube type: ETT ETT size: 7.0 mm Cuffed: yes Technique used for successful ETT placement: video laryngoscopy Insertion site: oral Blade type: Liane Blade size: 3 Cormack-Lehane (direct): grade I - full view of glottis Cormack-Lehane (video): grade IIa - partial view of glottis Cuff inflated with: air Placement verified by: auscultation and CO2 detection Airway secured with: prone view tape and tegaderm Number of attempts: 1 * Anesthesia Procedure Notes - Steve Hedrick MD - 12/02/2023 12:08 PM CDT Associated Order(s): Arterial Line Arterial Line Patient location: OR Indication: continuous blood pressure monitoring and blood sampling needed Ultrasound assisted: yes Staff: Placed by: Anesthesiologist: Steve Hedrick MD Procedure prep: Prep solution: alcohol Prep: sterile gloves Skin infiltrated with lidocaine 1%: yes Arterial line: Catheter size: 20 gauge Catheter length: 1 and 3/4 inch Catheter type: wire-guided catheter Seldinger technique: yes Laterality: left Site: brachial artery Line secured: Tegaderm and tape Results: good waveform and good blood return Number of attempts: greater than 3 attempts Assessment: Events: patient tolerated procedure well with no complications Additional comments: Multiple attempts made to place a line. Pt has poor targets as mentioned earlier. These targets were more difficult due to prior attempts. All attempts made with ultrasounds. R radial attempted x1. L radial attempted x1. No success. DP left attempted x1. All targets visualized with ultrasound. Small targets seen. Right brachial attempted x1 unable to tread catheter. L attempted with good success. All attempts done in sterile manner and prepped with alcohol. * Anesthesia Procedure Notes - Steve Hedrick MD - 12/02/2023 10:48 AM CDT Associated Order(s): Arterial Line Arterial Line Patient location: OR Indication: continuous blood pressure monitoring and blood sampling needed Ultrasound assisted: yes Staff: Placed by: Anesthesiologist: Steve Hedrick MD Procedure prep: Prep solution: alcohol Prep: provider hat/mask and sterile gloves Skin infiltrated with lidocaine 1%: yes Arterial line: Catheter size: 20 gauge Catheter length: 1 and 3/4 inch Catheter type: wire-guided catheter Site: radial artery Line secured: Tegaderm Results: good waveform Number of attempts: greater than 3 attempts Assessment: Events: patient tolerated procedure well with no complications Additional comments: Ultrasound used. Attempts on left radial and right radial by SRNA. Small targets seen on ultrasound. Attempt by me on left side successful. Secured with tegaderm. * Anesthesia Procedure Notes - Steve Hedrick MD - 12/02/2023 10:42 AM CDT Associated Order(s): Peripheral IV Catheter Peripheral IV Catheter Patient location: OR Staff: Placed by: EMBEDDED SYSTEMS ENGINEER: Dalia Rod CRNA Preprocedure prep: Prep solution: alcohol PPE: gloves and provider hat/mask PIV line: Laterality: right Site: hand Catheter size: 18 g Technique: direct visualization Procedure details: good blood return and occlusive dressing applied Number of attempts: 2 Assessment: Events: patient tolerated procedure well with no complications * Anesthesia Preprocedure Evaluation - Steve Hedrick MD - 11/12/2023 12:51 PM CDT Images from the original note were not included. [facility] Preoperative Evaluation Record Evaluation type/location: [facility] Planned procedure site: [facility] (Pods 2/3/5/FIELD GEOLOGIST) Date: 11/12/23 Anesthesia Evaluation Macie Briseno is a 78 y.o. female FUSION DECOMPRESSION LAMINECTOMY WITH INSTRUMENTATION - DEPUY EXPEDIUM--Posterior spinal instrumented fusion revision [id number] with posterior column osteotomies T12/L1 and L1/2, [...] - DEPUY EXPEDIUM--Posterior spinal instrumented fusion revision [id number] with posterior column osteotomies T12/L1 and L1/2, [...] dual lead ICD (atrioventricular, w/pacing functions). Brand: [employer]. Indication: primary prevention of VF/VT. Year inserted / last revised: 05/2021. Pacemaker dependent: unknown Pertinent negatives: CO ; CABG ; systolic/diastolic dysfunction w/o CHF ; valve replacement; PVD; DVT/PE; drug-eluting stent(s); bare metal stent(s); unknown stent(s) type and coronary angioplasty Comments: [facility] inspector optical instrument Dr. Tab WICK ~3 weeks ago EP physician Dr. Hemal WICK ~02/[address] [facility] EP SHAMIKA 09/29/23 1. Hypertrophic cardiomyopathy 2. Second degree AV block 3. Atrial fibrillation RVR with inappropriate ICD shocks 06/29/2023 a. ICD reprogrammed to VT zone at 188 bpm, no therapy b. No recurrent ICD shocks since then 4. Dual chamber ICD - [employer] a. Generator: [employer] [id number], implanted 06/05/2021 b. Atrial lead: [employer] 0672, implanted 06/05/2021 c. Right ventricular lead: [employer] 7841, implanted 06/05/2021 Respiratory Pertinent negatives: [...] pain (none since starting metoprolol prescribed by inspector optical instrument dr Barth, ~1.5 months ago, resolved with metoprolol.) + [...] DEVICE SUMMARY 1. Device brand known: Yes [employer] 2. Device type known: Yes Dual lead ICD (atrioventricular, with pacing functions) 3. Device location known: Yes, l chest 4. Cardiac Rhythm Device Communication Request form: Pending 5. Patient pacemaker dependent: Uncertain 6. Operation near cardiac rhythm device: No 7. Magnet positioning feasible for procedure: No 8. Device response to magnet: Pending confirmation 9. Device outside medical sales representative needed on day of surgery: Yes. Awaiting call back from device rep. [employer] staff message sent to surgeon's office, notified that [employer] is arranging for rep to be present, and to please reach out to [employer] if date or time of surgery changes so that rep can be present on DOS. Cardiac Rhythm Device Communication Request form will be transmitted to patients Electrophysiology physician or other clinician managing cardiac rhythm device. This patient has a history of atrial fibrillation with a [id number] score of 5 at MODERATE risk for perioperative thromboembolic events due to [id number] score as per the 2017 ACC Expert [...] Follow up note Spoke with Scott from [employer]. Rep aware and will be present. Follow-up completed by: Bonnie Moe NP on 11/12/23 at 5:44 PM Follow up note Labs reviewed and are without significant findings. Awaiting additional lab results: nicotine. Awaiting outside records. Awaiting PPM/ICD communication form. Surgeon's office reviews laboratory results independently, including final results of surgeon ordered labs. ++PPM form- see above rep aware ++Dr. Barth Cards last OVN, TTE, Stress for chart completion Follow-up completed by: Amy Vallejo NP on 11/13/23 at 3:25 PM Follow up note Cardiac Rhythm Device Communication Request form received, reviewed and submitted for scanning intoEMR. CARDIAC RHYTHM DEVICE SUMMARY 1. Device brand known: Yes [employer] 2. Device type known: Yes Dual lead ICD (atrioventricular, with pacing functions) 3. Device location known: Yes, l chest 4. Cardiac Rhythm Device Communication Received 5. Patient pacemaker dependent: No 6. Operation near cardiac rhythm device: No 7. Magnet positioning feasible for procedure: No 8. Device response to magnet: Suspension of anti-tachy therapy while magnet in place 9. Device outside medical sales representative needed on day of surgery: Yes. Rep and surgeon aware per above Cardiac Rhythm Device Communication Request form will be transmitted to patients Electrophysiology physician or other clinician managing cardiac rhythm device. Awaiting urine nicotine Awaiting Dr. Barth Cards last OVN, TTE, Stress for chart completion [...] AM Follow up note Cardiology note, Dr. 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 04/26/2012 SNHL (sensory-neural hearing loss), asymmetrical 04/26/2012 Lumbar radiculopathy 01/30/2012 Pure hypercholesterolemia 06/24/2011 Chronic nonseasonal allergic rhinitis due to pollen 05/17/2009 Primary osteoarthritis involving multiple joints 05/17/2009 S/P laparoscopic cholecystectomy 05/17/2009 Past Medical History: Diagnosis Date Allergic rhinitis Anxiety unknown maybe 1989 Arthritis 2019 Atrial fibrillation (CMS/HCC) ([facility]) Auditory vertigo Meniere's disease Coronary artery disease Depression 1989 Heart disease Afib 2019 HL (hearing loss) HLD (hyperlipidemia) Meniere's disease 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 Osteoporosis 2013 Tinnitus Past Surgical History: Procedure Laterality Date BACK SURGERY 2017 lower back, 2017, 2019 BRAIN SURGERY Left Ear cochlear implant 2019 CHOLECYSTECTOMY Cholecystectomy COCHLEAR IMPLANT Left 06/19/2020 IR INJECTION ARTHROGRAM SI JOINT BILATERAL WITH GUIDANCE Bilateral 02/15/2021 IR INJECTION ARTHROGRAM SI JOINT LEFT INCLUDES IMAGING GUIDANCE Left 09/06/2021 JOINT REPLACEMENT Hip replacement, L - 2013, R - 2014 - [facility] OTHER SURGICAL HISTORY 1998 Sectioning of left vesibular nerve SPINE SURGERY 2017, 2017, 2018, 2019 TOTAL HIP ARTHROPLASTY Bilateral 2013 VESTIBULAR NERVE SECTION Left OB History No obstetric history on file. Allergies Allergen Reactions Adhesive Rash and Blisters Surgical tape Chlorhexidine Rash Sulfa (Sulfonamide Antibiotics) Hives and Rash Gabapentin Other (See comments) Retain water Taking? Last Dose Start Date End Date Provider alendronate (FOSAMAX) 70 mg tablet -- 08/18/23 -- ProviderEmmanuel MD ALPRAZolam (XANAX) 0.25 mg tablet () -- 04/13/23 10/20/23 Darshana Toth MD Take 1 tablet (0.25 mg total) by mouth nightly as needed for anxiety atorvastatin (LIPITOR) 20 mg tablet -- 07/29/18 -- Provider, MD Emmanuel azelastine (ASTELIN) 137 mcg (0.1 %) nasal spray -- 12/30/21 -- Provider, HistoricalMD DILT-XR 180 mg 24 hr capsule -- 09/07/23 -- Provider, MD Emmanuel doxepin (SINEquan) 25 mg capsule -- 02/04/23 -- Provider, MD Emmanuel DULoxetine DR (CYMBALTA) 60 mg capsule -- 03/11/23 -- ProviderEmmanuel MD Eliquis 5 mg tablet -- 04/23/21 -- Provider, MD Emmanuel fexofenadine-pseudoephedrine (THELMA-D) 60-120 mg per 12 hr tablet -- -- -- Provider, MD Emmanuel fluticasone (FLONASE) 50 mcg/actuation nasal spray -- [...] this visit. Relevant diagnostics: ECG(s): 07/31/23 Echocardiogram(s): [facility] - TTE -10/06/23: Conclusions: Technically difficult study. [...] T wave abnormality. Recommend follow up with inspector optical instrument. Nonspecific T-wave abnormality persisted after regadenoson injection. Correlate with MPI. Global left ventricular function is normal. Left ventricular ejection fraction is 59 %. Myocardial perfusion imaging is normal. Cardiac catheterization(s): Per cardiology note 10/06/23 (media): 06/2023 - [facility] No CAD PFT(s): N/A Vascular studies: N/A [...] for requested labs within last 30 days. DOS Physical Exam Medical history, medications, and allergies reviewed. Attestation: This PAT evaluation 11/12/2023. Airway Exam: Mallampati: III Cervical ROM: FROM TM distance: >4 Cardiovascular Exam: Rate: regular Rhythm: regular Negative for Murmur Pulmonary Exam: LCTA, bilat EENT Exam: trachea midline Dental Exam: Appears intact Current state: Patient's current state is cooperative. Anesthesia Plan ASA 3 My patient is approved for the Anesthesia Controlled Medication protocol when under care of a EMBEDDED SYSTEMS ENGINEER Planned anesthesia: General and general TIVA Team communication plan: oral ET tube Invasive Monitors Planned: Invasive monitors planned: arterial line. Induction: Induction: intravenous. Informed Consent: Discussed plan with EMBEDDED SYSTEMS ENGINEER. Anesthesia plan and risks discussed with patient. Plan and Consent Comments: ICD disabled by rep. Plan to restart post op. Plan to place Defib pads on pt for surg. Pt has cochlear implant. Plan to have bovie pad on thigh per direction of ENT team and pt's ENT physician. Surgeon requests prone view also for cochlear implant. Consent and Attending signature: I and/or my designee have discussed the anesthesia plan, benefits, possible alternatives, parental presence at time of induction (if indicated), and clinically relevant risks that may include dental injury, unintentional awareness, and/or other complications. The patient and/or parent/legal guardian understand, and agree to proceed. All questions answered. documented in this encounter Plan of Treatment Not on file documented as of this encounter Procedures Procedure Name Priority Date/Time Associated Diagnosis Comments WV AN PROCEDURE PLACEHOLDER Routine 12/02/2023 12:09 PM CDT WV AN ELECTIVE ENDOTRACHEAL AIRWAY Routine 12/02/2023 12:09 PM CDT WV AN PROCEDURE PLACEHOLDER Routine 12/02/2023 12:08 PM CDT WV AN PROCEDURE PLACEHOLDER Routine 12/02/2023 10:48 AM CDT WV AN PROCEDURE PLACEHOLDER Routine 12/02/2023 10:42 AM CDT documented in this encounter Results * WV AN ELECTIVE ENDOTRACHEAL AIRWAY, WV AN PROCEDURE PLACEHOLDER (12/02/2023 12:09 PM CDT) Narrative Tee Carver - 12/02/2023 12:09 PM CDT Tee Carver ? 12/02/2023 12:10 PM Airway Patient location: OR Urgency: elective Indications for airway management: anesthesia Difficult airway: no Staff: Supervising provider: Steve Hedrick MD Placed by: Other staff: Tee Carver Emergent airway documentation: Risks and benefits discussed: yes Consent obtained: yes Consent given by: patient Airway prep: Preoxygenated: yes Patient position: sniffing Mask difficulty assessment: 0 - not attempted Spontaneous ventilation during airway: absent Sedation level during airway: GA Final airway details: Final airway type: endotracheal airway Tube type: ETT ETT size: 7.0 mm Cuffed: yes Technique used for successful ETT placement: video laryngoscopy Insertion site: oral Blade type: Liane Blade size: 3 Cormack-Lehane (direct): grade I - full view of glottis Cormack-Lehane (video): grade IIa - partial view of glottis Cuff inflated with: air Placement verified by: auscultation and CO2 detection Airway secured with: prone view tape and tegaderm Number of attempts: 1 us Steve Hedrick MD ANESTHESIA ORDERABLES Geovanna l Result * WV AN PROCEDURE PLACEHOLDER (12/02/2023 12:08 PM CDT) Narrative Steve Hedrick MD - 12/02/2023 12:08 PM CDT Steve Hedrick MD ? 12/02/2023 ??1:03 PM Arterial Line Patient location: OR Indication: continuous blood pressure monitoring and blood sampling needed Ultrasound assisted: yes Staff: Placed by: Anesthesiologist: Steve Hedrick MD Procedure prep: Prep solution: alcohol Prep: sterile gloves Skin infiltrated with lidocaine 1%: yes Arterial line: Catheter size: 20 gauge Catheter length: 1 and 3/4 inch Catheter type: wire-guided catheter Seldinger technique: yes Laterality: left Site: brachial artery Line secured: Tegaderm and tape Results: good waveform and good blood return Number of attempts: greater than 3 attempts Assessment: Events: patient tolerated procedure well with no complications Additional comments: Multiple attempts made to place a line. Pt has poor targets as mentioned earlier. These targets were more difficult due to prior attempts. All attempts made with ultrasounds. R radial attempted x1. L radial attempted x1. No success. DP left attempted x1. All targets visualized with ultrasound. Small targets seen. Right brachial attempted x1 unable to tread catheter. L attempted with good success. All attempts done in sterile manner and prepped with alcohol. Steve Hedrick MD ANESTHESIA ORDERABLES Edit ed Result - Final * WV AN PROCEDURE PLACEHOLDER (12/02/2023 10:48 AM CDT) Narrative Steve Hedrick MD - 12/02/2023 10:48 AM CDT Steve Hedrick MD ? 12/02/2023 ??1:01 PM Arterial Line Patient location: OR Indication: continuous blood pressure monitoring and blood sampling needed Ultrasound assisted: yes Staff: Placed by: Anesthesiologist: Steve Hedrick MD Procedure prep: Prep solution: alcohol Prep: provider hat/mask and sterile gloves Skin infiltrated with lidocaine 1%: yes Arterial line: Catheter size: 20 gauge Catheter length: 1 and 3/4 inch Catheter type: wire-guided catheter Site: radial artery Line secured: Tegaderm Results: good waveform Number of attempts: greater than 3 attempts Assessment: Events: patient tolerated procedure well with no complications Additional comments: Ultrasound used. Attempts on left radial and right radial by SRNA. Small targets seen on ultrasound. Attempt by me on left side successful. Secured with tegaderm. Steve Hedrick MD ANESTHESIA ORDERABLES Edit ed Result - Final * WV AN PROCEDURE PLACEHOLDER (12/02/2023 10:42 AM CDT) Narrative Steve Hedrick MD - 12/02/2023 10:42 AM CDT Steve Hedrick MD ? 12/02/2023 10:48 AM Peripheral IV Catheter Patient location: OR Staff: Placed by: EMBEDDED SYSTEMS ENGINEER: Dalia Rod CRNA Preprocedure prep: Prep solution: alcohol PPE: gloves and provider hat/mask PIV line: Laterality: right Site: hand Catheter size: 18 g Technique: direct visualization Procedure details: good blood return and occlusive dressing applied Number of attempts: 2 Assessment: Events: patient tolerated procedure well with no complications Steve Hedrick MD ANESTHESIA ORDERABLES Edit ed Result - Final documented in this encounter Visit Diagnoses Not on filedocumented in this encounter Administered Medications Inactive Administered Medications - up to 3 most recent administrations Medication Order MAR Action Action Date Dose Rate Site albumin 5 % bottle intravenous, Continuous PRN, Starting on Thu12/02/23 at 1347, Anesthesia Intra-op New Bag 12/02/2023 1:47 PM CDT calcium chloride IV syringe intravenous, As needed, Starting on Thu12/02/23 at 1259, Anesthesia Intra-op Given 12/02/2023 4:31 PM CDT 0.5 g Given 12/02/2023 12:59 PM CDT 0.5 g ceFAZolin (ANCEF) injection intravenous, Administer over 3 Minutes, As needed, Starting on Thu12/02/23 at 1037, Anesthesia Intra-op Given 12/02/2023 2:37 PM CDT 2,000 mg Given 12/02/2023 10:37 AM CDT 2,000 mg dexmedeTOMIDine in 0.9% sodium chloride (PRECEDEX) 200 mcg/50 mL (4 mcg/mL) infusion (premix) intravenous, Continuous PRN, Starting on Thu12/02/23 at 1018, Anesthesia Intra-op Rate/Dose Change 12/02/2023 10:41 AM CDT 0.1 mcg/kg/hr 1.995 mL/hr New Bag 12/02/2023 10:18 AM CDT 0.2 mcg/kg/hr 3.99 mL/h r ePHEDrine injection intravenous, Administer over 5 Minutes, As needed, Starting on Thu12/02/23 at 0918, Anesthesia Intra-op Given 12/02/2023 4:51 PM CDT 5 mg Given 12/02/2023 4:36 PM CDT 10 mg Given 12/02/2023 4:30 PM CDT 5 mg fentaNYL (SUBLIMAZE) preservative free injection intravenous, As needed, Starting on Thu12/02/23 at 0923, Anesthesia Intra-op Given 12/02/2023 5:35 PM CDT 50 mcg Given 12/02/2023 10:26 AM CDT 100 mcg Given 12/02/2023 9:23 AM CDT 100 mcg glycopyrrolate (ROBINUL) injection intravenous, Administer over 1 Minutes, As needed, Starting on Thu12/02/23 at 1712, Anesthesia Intra-op Given 12/02/2023 5:12 PM CDT 0.5 mg ketamine (KETALAR) injection intravenous, Administer over 2 Minutes, As needed, Starting on Thu12/02/23 at 0922, Anesthesia Intra-op Given 12/02/2023 11:21 AM CDT 10 mg Given 12/02/2023 9:22 AM CDT 40 mg Lactated Ringer's (LR) infusion 30 mL/hr, intravenous, Continuous, Starting on Thu12/02/23 at 0800, Pre-Op Rate/Dose Verify 12/02/2023 9:07 AM CDT 30 m L/hr New Bag 12/02/2023 8:03 AM CDT 30 mL/hr 30 mL/hr Lactated Ringer's (LR) infusion intravenous, Continuous PRN, Starting on Thu12/02/23 at 0945, Anesthesia Intra-op New Bag 12/02/2023 9:45 AM CDT lidocaine (cardiac) (XYLOCAINE) preservative free injection intravenous, As needed, Starting on Thu12/02/23 at 0922, Anesthesia Intra-op, Indications: Ventricular ArrhythmiasIndications:Ventricular Arrhythmias Given 12/02/2023 9:22 AM CDT 60 mg magnesium sulfate 2 g/50 mL in water (premix) intravenous, Administer over 60 Minutes, As needed, Starting on Thu12/02/23 at 1250, Anesthesia Intra-op Given 12/02/2023 12:50 PM CDT 2 g methadone injection syringe intravenous, As needed, Starting on Thu12/02/23 at 1137, Anesthesia Intra-op Given 12/02/2023 2:55 PM CDT 10 mg Given 12/02/2023 11:37 AM CDT 10 mg midazolam (VERSED) 2 mg/2 mL preservative free injection intravenous, Administer over 2 Minutes, As needed, Starting on Thu12/02/23 at 0908, Anesthesia Intra-op Given 12/02/2023 9:08 AM CDT 2 mg neostigmine injection intravenous, Administer over 3 Minutes, As needed, Starting on Thu12/02/23 at 1712, Anesthesia Intra-op Given 12/02/2023 5:12 PM CDT 3 mg norepinephrine (LEVOPHED) injection intravenous, As needed, Starting on Thu12/02/23 at 0939, Anesthesia Intra-op Given 12/02/2023 1:57 PM CDT 8 mcg Given 12/02/2023 9:39 AM CDT 16 mcg ondansetron (ZOFRAN) injection intravenous, Administer over 2 Minutes, As needed, Starting on Thu12/02/23 at 1702, Anesthesia Intra-op Given 12/02/2023 5:02 PM CDT 4 mg phenylephrine (JOANN-SYNEPHRINE) 1 mg/10 mL (100 mcg/mL) in sodium chloride 0.9% (premix) intravenous, As needed, Starting on Thu12/02/23 at 0924, Anesthesia Intra-op Given 12/02/2023 5:59 PM CDT 100 mcg Given 12/02/2023 12:41 PM CDT 100 mcg Given 12/02/2023 12:36 PM CDT 100 mcg phenylephrine (JOANN-SYNEPHRINE) 5 mg/50 mL (100 mcg/mL) in sodium chloride 0.9% (premix) intravenous, Continuous PRN, Starting on Thu12/02/23 at 0922, Anesthesia Intra-op Rate/Dose Change 12/02/2023 5:17 PM CDT 0.3 mcg/kg/min 14.364 mL/hr Rate/Dose Change 12/02/2023 5:12 PM CDT 0.5 mcg/kg/min 23. 94 mL/hr Rate/Dose Change 12/02/2023 5:00 PM CDT 0.7 mcg/kg/min 33. 516 mL/hr potassium chloride 40 mEq/520 mL in sodium chloride 0.9% (premix) 40 mEq 40 mEq, intravenous, at 130 mL/hr, Administer over 4 Hours, Once, On Thu12/02/23 at 1400, For 1 dose, Intra-Op, Indications: hypokalemiaIndications:hypokalemia Given 12/02/2023 1:26 PM CDT 40 mEq propofoL (DIPRIVAN) 10 mg/mL IV intravenous, As needed, Starting on Thu12/02/23 at 0922, Anesthesia Intra-op Bolus 12/02/2023 5:26 PM CDT 20 mg Bolus 12/02/2023 5:17 PM CDT 20 mg New Bag 12/02/2023 9:22 AM CDT 75 mg propofoL (DIPRIVAN) 10 mg/mL IV intravenous, Continuous PRN, Starting on Thu12/02/23 at 0922, Anesthesia Intra-op Rate/Dose Change 12/02/2023 5:01 PM CDT 50 mcg/kg/min 23.94 mL/hr Rate/Dose Change 12/02/2023 4:54 PM CDT 75 mcg/kg/min 35.9 1 mL/hr Rate/Dose Change 12/02/2023 4:45 PM CDT 85 mcg/kg/min 40.6 98 mL/hr rocuronium (ZEMURON) injection intravenous, As needed, Starting on Thu12/02/23 at 1121, Anesthesia Intra-op Given 12/02/2023 11:21 AM CDT 40 mg succinylcholine syringe intravenous, As needed, Starting on Thu12/02/23 at 0922, Anesthesia Intra-op Given 12/02/2023 9:22 AM CDT 100 mg tranexamic acid (CYKLOKAPRON) 1,000 mg/10 mL (100 mg/mL) solution intravenous, As needed, Starting on Thu12/02/23 at 1018, Anesthesia Intra-op Given 12/02/2023 10:18 AM CDT 1,600 mg tranexamic acid (CYKLOKAPRON) 1,000 mg/100 mL (10 mg/mL) in sodium chloride (premix) intravenous, Administer over 15 Minutes, Continuous PRN, Starting on Thu12/02/23 at 1040, Anesthesia Intra-op New Bag 12/02/2023 10:40 AM CDT 5 mg/kg/hr 39.9 mL/hr vancomycin 1500 mg/515 mL in sodium chloride 0.9% (premix) intravenous, Administer over 90 Minutes, As needed, Starting on Thu12/02/23 at 0956, Anesthesia Intra-op Given 12/02/2023 9:56 AM CDT 1,500 mg documented in this encounter Additional Health Concerns [...] documented as of this encounter Care Teams Human Resources Project Coordinator Relationship Specialty Start Date End Date Enmanuel Gan MD [address] [facility] [address] [place] [address] PCP - General Internal Medicine 04/26/20 Tg Houston MD [address] [facility] [address] [place] [address] Consulting Physician Cardiology 07/18/20 Guerrero Hunter DPT [address] [facility] [address] [facility] [place] [address] Physical Therapist Physical Therapy 11/08/20 Guerrero Weiner, SUPERVISOR ENGINE ASSEMBLY [address] [facility] [address] [place] [address] Director Nursing Service Physical Therapy 12/12/20 Stephen Barth MD [address] [facility] [address] [place] [address] Referring Physician Transplant 10/19/23 documented as of this encounter
--- OUTSIDE RECORDS SUMMARY | 2024-07-12 08:43 | XMS_ITS | Encounter Summary ---
Author Organization [facility] Address [address] [place] [address] Phone Care Team Providers Care Infant Childcare Provider Name Role Phone Enmanuel Gan MD Primary Care Provider [phone] Tg Houston MD Unavailable [phone] Guerrero Hunter DPT Unavailable [phone] Guerrero Weiner ENGINEER SYSTEM ADMINISTRATOR Unavailable [phone] Stephen Barth MD Unavailable [phone] Reason for Visit * Reason Onset Date Comments Spinal Surgery 11/19/2023 Encounter Details Date Type Department Care Team (Late st Contact Info) Description 11/19/2023 Telephone [facility] Orthopaedic Surgery [address] [facility] Advanced Medicine 6th [place] [address] [place] [address] Jeremy Michelle MD [address] [facility] [address] [place] [address] Spinal Surgery Social History Tobacco Use Types [...] attend chur ch or samaritan services? 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 * Telephone Encounter - Cyndie Byers RN - 11/19/2023 2:50 PM CDT Spoke with [facility] sales representative graphic art that stated they would have someone to call back to office. Reached out to them to inform the change of the date of surgery from 11/25/23 to 12/02/2023 with the arrival time of 0700 and surgery start time around 8 am. He states someone would call back to the office for any questions or concerns. documented in this encounter Plan of Treatment Not on file documented as of this encounter Visit Diagnoses Not on filedocumented in this encounter Care Teams Infant Childcare Provider Relationship Specialty Start Date End Date Enmanuel Gan MD [address] [facility] [address] [place] [address] PCP - General Internal Medicine 04/26/20 Tg Houston MD [address] [place] [address] Consulting Physician Cardiology 07/18/20 Guerrero Hunter DPT [address] [facility] [address] [facility] [place] [address] Physical Therapist Physical Therapy 11/08/20 Guerrero Weiner, ENGINEER SYSTEM ADMINISTRATOR [address] [facility] [address] [place] [address] Radiation Protection Engineer Physical Therapy 12/12/20 Stephen Barth MD [address] [facility] [address] [place] [address] Referring Physician Transplant 10/19/23 documented as of this encounter
--- OUTSIDE RECORDS SUMMARY | 2024-07-12 08:43 | XMS_ITS | Encounter Summary ---
Author Organization [facility] Address [address] [place] [address] Phone Care Team Providers Care Concrete Journeyman Name Role Phone Enmanuel Gan MD Primary Care Provider [phone] Tg Houston MD Unavailable [phone] Guerrero Hunter DPT Unavailable [phone] Guerrero Weiner BUSINESS MANAGEMENT PROFESSOR Unavailable [phone] Stephen Barth MD Unavailable [phone] Reason for Referral * MRI/CAT/PET Scan (Routine) - Closed Specialty Diagnoses / Procedures Referred By Contac t Referred To Contact Radiology Diagnoses Fusion of spine of lumbar region Alteration in nutrition Procedures CT Pelvis WO Contrast Jeremy Michelle MD [address] [place] [address] Phone: tel: fax: [address] [address] Referral ID Status Reason Start Date Expiration Date Visits Re quested Visits Authorized [id number] Closed 10/20/2023 04/24/2024 1 1 * MRI/CAT/PET Scan (Routine) - Closed Specialty Diagnoses / Procedures Referred By Contac t Referred To Contact Radiology Diagnoses Fusion of spine of lumbar region Alteration in nutrition Procedures CT Thoracic Lumbar Spine WO Contrast Jeremy Michelle MD [address] [place] [address] Phone: tel: fax: [facility] [address] [facility] [place] [address] Referral ID Status Reason Start Date Expiration Date Visits Re quested Visits Authorized [id number] Closed 10/20/2023 04/24/2024 1 1 Reason for Visit * Consultation (Routine) - Closed Specialty Diagnoses / Procedures Referred By Gigi t Referred To Contact Orthopedic Surgery Diagnoses Right hip pain [facility] Orthopaedic Surgery [address] [place] [address] Phone: tel: fax: [facility] (All Locations) Referral ID Status Reason Start Date Expiration Date V isits Requested Visits Authorized [id number] Closed Specialty Services Required 03/10/2023 04/08/2024 3 3 Encounter Details Date Type Department Care Team (Late st Contact Info) Description 10/20/2023 7:30 AM CDT Office Visit [facility] Orthopaedic Surgery [address] [facility] Medicine 6th [place] [address] [place] [address] Jeremy Michelle MD [address] [place] [address] Fusion of spine of lumbar region (Primary Dx); Alteration in nutrition; Vitamin D deficiency Social [...] attend chur ch or sikh services? 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 Tentative surgery date: 11/25/2023 Need plan for blood thinners Clearance for Cochlear implant Please go to 3rd floor for labs today. See appointment on 10/28/[address] Thoracic/ Lumbar and pelvis Sincerely, Dr. Jeremy Michelle & Cyndie Byers RN Please contact Dr. Miguel Angel Agee's Nurse if you have any questions. For Mailing information: Attn: Jeremy Michelle/ Cyndie HANEY [facility] Orthopedics [address] [place] [address] [phone] [place] [address] documented in this encounter Progress Notes * Jeremy Michelle MD - 10/20/2023 7:30 AM CDT Images from the original note were not included. Established Patient Visit Interim History Macie Briseno returns to our office today for fu. Here to review the plan for surgery upcoming. 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 Her original surgery was in 2019. Her PI is 60. Her lumbar lordosis from 1-1 is 53. She is well fused otherwise. She remains intact. She has some baseline numbness around her knees in an L3 type area from her original surgery. She continues to feel like she is leaning forward. On her films we reviewed him she has more kyphosis at her thoracolumbar junction. Plan is to go up to T10 with posterior column osteotomies at 12 1 and L1-L2. We are going to send path during the case to make sure there has no old infection in there causing the nonunion. We are going to have her in a brace for 6 weeks postoperatively. We are going to send off bone / nutrition labs before. She has an issue with tape and adhesive sowe are going to do a subcu suture and Dermabond over it with some Tegaderm over that and we may just leave the Tegaderm off just to make sure we are not irritating it. We are going to get a new CT scan of her thoracolumbar spine and her pelvis. She had SI joint pain that was relieved with the injection + air in her joint on her previous scan from 2020 but we need anew 1 to look at this. Left 1 S2 AI screw on each side. She showed me her DEXA today which looks fine. DEXA reviewed - osteopenic - Nutritional labs - New CT TL spine with pelvis - bone stimulator post op if possible- discussed whether this would be covered or whether we could order this or not - brace postop for 6 weeks - send path during the case and for micro [id number] w/ S2AI screws, PCO at T12/L1, L1/2 on Pro-axis bed Jeremy Michelle MD PhD Stamping Machine Operator of Orthopaedic Quilter FixerStamping Machine Operator of Neurological Surgery [facility] in [facility], ID Screw Machine Operator Swiss Type done by [employer]; therefore, variances and inaccuracies may occur. I reviewed the patient problem list pertinent to the visit today, but the entire patient problem list was not reviewed today. documented in this encounter Plan of Treatment Not on file documented as of this encounter Results * CT Pelvis WO [...] arthropathy at T12-L1 and L1-L2. There is [id number] neuroforaminal narrowing on the right at L1-L2 [...] arthropathy at T12-L1 and L1-L2. There is [id number] neuroforaminal narrowing on the right at L1-L2 [...] IMG CT PROCEDURES Fi nal Result * Vitamin D 25 hydroxy (10/20/2023 10:04 AM CDT) Pathologist [facility] Vitamin D 25-OH 33 30 - 80 ng/mL Blood 10/20/2023 10:0 4 AM CDT 10/20/2023 10:17 AM CDT Jeremy Michelle MD LAB BLOOD ORDERABLES Final Result [facility] [address] [facility] Department [place] [address] * CBC with auto differential (10/20/2023 10:04 AM CDT) [facility] WBC 5.6 3.8 - 9.9 K/cumm Hgb 14.8 11.9 - 15.5 g/dL [facility] Hct 44.5 35.6 - 45.5 % [facility] Plt 293 150 - 400 K/cumm [facility] MPV 10.0 9.1 - 12.3 fL [facility] RBC 5.18 3.90 - 5.20 M/cumm [facility] MCV 85.9 81.3 - 96.4 fL [facility] MCH 28.6 27.1 - 33.3 pg [facility] MCHC 33.3 32.3 - 35.7 g/dL [facility] RDW CV 14.8 11.1 - 14.9 % [facility] RDW SD 46.8 35.7 - 48.1 fL [facility] NRBC abs 0.00 0.00 - 0.01 K/cumm [facility] Blood 10/20/2023 10:0 4 AM CDT 10/20/2023 10:17 AM CDT Jeremy Michelle MD LAB BLOOD ORDERABLES Final Result Performing Organization Address [facility] Co de Phone Number [facility] [place] [address] * Prealbumin (10/20/2023 10:04 AM CDT) Prealbumin 26.0 20.0 - 40.0 mg/dL Blood 10/20/2023 10:0 4 AM CDT 10/20/2023 10:17 AM CDT Jeremy Michelle MD LAB BLOOD ORDERABLES Final Result Performing Organization Address [facility] Co de Phone Number [facility] [place] [address] * Transferrin (10/20/2023 10:04 AM CDT) Transferrin 271 200 - 360 mg/dL Blood 10/20/2023 10:0 4 AM CDT 10/20/2023 10:17 AM CDT Jeremy Michelle MD LAB BLOOD ORDERABLES Final Result Performing Organization Address [facility] [place] [address] documented in this encounter Visit Diagnoses Diagnosis Fusion of spine of lumbar region- Primary Alteration in nutrition Vitamin D deficiency Fusion of spine of lumbar region Alteration in nutrition documented in this encounter Care Teams Concrete Journeyman Relationship Specialty Start Date End Date Enmanuel Gan MD [address] [place] [address] PCP - General Internal Medicine 04/26/20 Tg Houston MD [address] [place] [address] Consulting Physician Cardiology 07/18/20 Guerrero Hunter DPT [address] [facility] [address] [place] [address] Physical Therapist Physical Therapy 11/08/20 Guerrero Weiner, [facility] [address] [place] [address] Ice Cream Maker Physical Therapy 12/12/20 Stephen Barth MD [address] [place] [address] Referring Physician Transplant 10/19/23 documented as of this encounter
--- OUTSIDE RECORDS SUMMARY | 2024-07-12 08:43 | XMS_ITS | Encounter Summary ---
Author Organization [facility] Healthcare Address [address] [place] [address] Care Team Providers Care Deep [place] Diver Name Role Phone Enmanuel Gan MD Primary Care Provider [phone] Tg Houston MD Unavailable [phone] Guerrero Hunter DPT Unavailable [phone] Guerrero Weiner [employer] Unavailable [phone] Encounter Details Date Type Department Care Team (Late st Contact Info) Description 07/07/2023 Telephone [facility] [address] [facility] [address] [place] [id number] Ashvin Recio III, MD [address] [address] Social History Tobacco Use Types Packs/Day [...] week 07/30/2020 How often do you attend [facility] or gnosticism services? Never 07/30/2020 Do you belong to [...] on file Legal Sex Female 9:09 PM FIBER DESIGNER Gender Identity Not on file Sexual Orientation Lesbian 05/24/2019 9: 06 AM CDT documented as of this encounter Miscellaneous Notes * Telephone Encounter - Marcella Gonzalez - 07/09/2023 10:21 AM CST Pt aware to f/u w/ cardio, has contacted. R DESIGNER * Telephone Encounter - Clara Thakkar NP - 07/07/2023 4:45 PM FIBER DESIGNER Thank you for update. Yes. Agree, please call her general mds coordinator. Please have her update us in the next couple days with symptoms R DESIGNER * Telephone Encounter - Marcella Gonzalez - 07/07/2023 2:27 PM CST Reports today she has no energy or stamina, some SOB since new dose of Diltiazem. Last night had CPradiating to left arm, advised to speak with cardio for this. Thinks Diltiazem is the reason she feels poorly today after only one dose of 360. R DESIGNER documented in this encounter Plan of Treatment Not on file documented as of this encounter Visit Diagnoses Not on filedocumented in this encounter Care Teams Deep Sea Diver Relationship Specialty Start Date End Date Enmanuel Gan MD [address] [facility] [place], [place] [id number] PCP - General Internal Medicine 04/26/20 Tg Houston MD [address] [facility] [address] [place] [address] Consulting Physician Cardiology 07/18/20 Guerrero Hunter DPT [address] [facility] [address] [place] [address] Physical Therapist Physical Therapy 11/08/20 Guerrero Weiner, [employer] [address] [facility] [address] [place] [address] He[facility] Se[facility] 12/12/20 documented as of this encounter
--- OUTSIDE RECORDS SUMMARY | 2024-07-12 08:43 | XMS_ITS | Encounter Summary ---
Author Organization [facility] Healthcare Address [address] [place] [address] Care Team Providers Care Packing Room Inspector Name Role Phone Enmanuel Gan MD Primary Care Provider [phone] Tg Houston MD Unavailable [phone] Guerrero Hunter DPT Unavailable [phone] Guerrero Weiner SOFA INSPECTOR Unavailable [phone] Stephen Talbert MD Unavailable [phone] Reason for Visit * Auth/Cert (Routine) Specialty [...] MORSELIZED FUSION DECOMPRESSION LAMINECTOMY WITH INSTRUMENTATION - TaskBeat EXPEDIUM--Posterior spinal instrumented fusion revision [id number]-[id number] with posterior column osteotomies T12/L1 and L1/2, exploration of fusion, removal of hardware, autograft, allograft, bone morphogentic protein, spinal cord monitoring. REMOVAL HARDWARE SPINE OSTEOTOMY POSTERIOR SPINAL SPINAL CORD MONITORING BONE GRAFT WITH BONE MORPHOGENIC PROTEIN Referral ID Status Reason Start Date Expiration Date Visits Re quested Visits Authorized [id number] 1 1 Encounter Details Date Type Department Care Team (Late st Contact Info) Description 12/02/2023 8:30 AM CDT - 12/02/2023 3:55 PM CDT Surgery [facility] Operating Room [address] [place] [address] Jeremy Michelle MD [address] [facility] [address]6B[address] [place] [address] FUSION DECOMPRESSION LAMINECTOMY WITH INSTRUMENTATION - DEPUY EXPEDIUM--Posterior spinal instrumented fusion revision [id number]-Dnoayi with posterior column osteotomies T12/L1 and L1/2, exploration of fusion, removal of hardware, autograft, allograft, bone morphogentic protein, spinal cord monitoring. Surgery Details Date/Time Status Location OR Service Patient Class Case Class Case Type Trauma Case? 12/02/2023 8:30 AM Posted [facility] OR POD 5 235 Orthopaedics Surgery Admit Time Sensitive - 3 Weeks Panel 1 Procedure LRB Anes Op Region Wound Class Comments FUSION DECOMPRESSION LAMINECTOMY WITH INSTRUMENTATION - DEPUY EXPEDIUM--Posterior spinal instrumented fusion revision W06-Nkrpuj with posterior column osteotomies T12/L1 and L1/2, exploration of fusion, removal of hardware, autograft, allograft, bone morphogentic protein, spinal cord monitoring. N/A General Spine Thoracic Class I - Clean REMOVAL HARDWARE SPINE N/A General Spine Thoracic Cl ass I - Clean OSTEOTOMY POSTERIOR SPINAL N/A General Spine Lumbar Class I - Clean SPINAL CORD MONITORING N/A Choice Cl ass II - Clean Contaminated BONE GRAFT WITH BONE MORPHOGENIC PROTEIN N/A Choice Class I - Clean Surgeon Surgeon Role Service Panel Jeremy Michelle MD Primary Orthopaedic s 1 Isabelle Deleon MD Resident - Observing Orthop aedics 1 Case Notes 11/12@1626- Per Cyndie via phone call reschedule to 12/01-DMF Special Needs Cut to close:300min,#20 bone scalpel, SCM, Fluoroscopy, O-arm, TXA, PROAXIS, GW, auto/allograft chips, fibergraft, 2 lrg unopened BMP kit, DePuy Expedium, Bone Stimulator post op,need to send pathology/micro see comments documented in this encounter Social History Tobacco [...] often do you attend chur ch or rastafari services? 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 Gender Identity Not on file Sexual Orientation Lesbian 05/24/2019 9: 06 AM CDT documented as of this encounter Last Filed Vital Signs Vital Sign Reading Time Taken Comments Blood Pressure 101/58 12/02/2023 7:50 AM CDT Pulse 60 12/02/2023 7:50 AM CDT Temperature 36 ??C (96.8 ??F) 12/02/2023 7:37 AM CDT Respiratory Rate 15 12/02/2023 7:50 AM CDT Oxygen Saturation 93% 12/02/2023 7:50 AM CDT Inhaled Oxygen Concentration - - Weight - - Height - - Body Mass Index - - documented in this encounter Discharge Summaries * Dalia Muhammad NP - 12/14/2023 4:51 PM CDT Images from the original note were not included. Spine Inpatient Discharge Summary Admitting Provider: Jeremy Michelle MD Discharge Provider: No att. providers found Primary Care Physician at Discharge: Enmanuel Gan MD [phone] Admission Date: 12/02/2023 Discharge Date: 12/25/2023 Primary [...] Procedure(s): FUSION DECOMPRESSION LAMINECTOMY WITH INSTRUMENTATION - TaskBeat EXPEDIUM--Posterior spinal instrumented fusion revision R47-Gidumv with posterior column osteotomies T12/L1 and L1/2, exploration of fusion, removal of hardware, autograft, allograft, bone morphogentic protein, spinal cord monitoring. REMOVAL HARDWARE SPINE OSTEOTOMY POSTERIOR SPINAL SPINAL CORD MONITORING BONE GRAFT WITH BONE MORPHOGENIC PROTEIN Hospital Course 12/01 OR for Revision PSF L90-gumjmp, decompression 12/02 Vtach, transferred to ICU for [...] Michelle outpatient 2. Acute on chronic pain MUSCULOSKELETAL PHYSIOTHERAPIST weaned off. Pain controlled on scheduled Robaxin, [...] 5/5 5/5 Wrist flexion (C7) 5/5 5/5 Test Hole Driller (C8) 5/5 5/5 Interosseous of hand (T1) [...] OS 04/04/2024 1:00 PM Clara Thakkar NP [facility] CAR 260 Specialty 04/04/2024 1:15 PM [facility] 260C DEVICE CHECK [facility] CAR 260 Specialty Chem/LFT Lab History Latest [...] once a day. Follow up with your microbiology coordinator within one week of discharge. Commonly known [...] during your admission. Follow up with your microbiology coordinator within one week of discharge regarding this [...] says it's OK. -Do not do any underground drill operator that cause you to twist, push or [...] Specialty: Internal Medicine Relationship: PCP - General [address] [place] [address] [address] [facility] [address] [place] [id number] Next Steps: Follow up Other Instructions Care [...] AM CDT Please follow up with your microbiology coordinator within 1 week of discharge. If you have not received information for an appointment with your microbiology coordinator within a week of discharge please contact [...] above your head. Do not do any underground drill operator like laundry or vacuuming that may cause [...] during normal business hours (M-F 8-4:30) at [phone] or after hours at the exchange at [phone] or [phone]. 7. MEDICATIONS: Adjustments may have been made [...] your surgeon, your surgeons nurse, or an HIGH SCHOOL FOREIGN LANGUAGE TUTOR approximately six weeks after your surgery. Please call [phone] if you need to change an appointment. [...] spray 1 spray(s), Nasal, daily, 1 each, [place], 0 08/20/2023 furosemide (LASIX) 40 mg tabletIndications [...] Comment s Discharge to home, home heal skilled care [facility]ALTH documented in this encounter Progress Notes * Karina Quevedo, PT - 12/14/2023 9:30 AM CDT Physical Therapy 12/14/23 0927 Other Comments Other PT Comments Per discussion with SOFA INSPECTOR (Rajiv), patient has progressed sufficiently to discharge [...] OK to Discharge Yes * Rajiv Shi, SOFA INSPECTOR - 12/14/2023 8:20 AM CDT Physical Therapy [...] treatment team and contact the PT or SOFA INSPECTOR currently assigned to this patient. If a physical therapy clinician is not assigned to this patient, please call [phone]. 12/14/23 0820 PT Last Visit Session Type [...] Seated-Exercise Type Ankle pumps;Long arc quads;ABduction;ADduction Reps/Sets 10/1 Seated-Motion AROM Seated-Exercise Comments Pt. completed seated [...] Progress Note Admit Date: 12/02/2023 Hospital Day: 12 Dx: Pseudoarthrosis PMH: HTN, HLD, CAD, CHF, RBBB, A-fib with dual lead ICD, chronic pain, YOCHA DEHE with cochlear implant Proc: 12/01 Revision PSF X95-rwlkiq, decompression Exam: Normal motor exam. SILT. : 1945 Admit: 12/02/2023 Interval History: AFVSS. NAEON. No new labs. Pain controlled. Exam: Dressing clean/dry/intact. 5/5 BUE/BLE, SILT all dermatomes. Plan: Discharge to SNF pending SNF acceptance - referrals sent Thursday. Discuss with PTre possible home with HH dispo given suboptimal SNF locations per patient. Continue Lovenox for DVTppx - no oral anticoagulants until POD #30. Edited by: Ivelisse Olivares MD at 12/14/2023 0634 Objective Vitals: 24hr Min/Max: Temp Min: 36.6 [...] 5/5 5/5 Wrist flexion (C7) 5/5 5/5 Test Hole Driller (C8) 5/5 5/5 Interosseous of hand (T1) [...] the appropriate orthopaedic surgery team, please use [email or web address] to page resident directly. If questions arise and the appropriate resident can't be reached or you are calling overnight, please contact [phone] ([facility] 7:30 PM - 6:30 AM - Floor Resident) or [phone] (24 hours/day - Consult Resident) Cosigned by [...] treatment team and contact the PT or SOFA INSPECTOR currently assigned to this patient. If a physical therapy clinician is not assigned to this patient, please call [phone]. 12/13/23 1525 PT Last Visit Session Type [...] admitted for pseudoarthritis and adjacentsegment disease post Y53-bpofxd posterior fusion and decompression (12/02/2023) complicated by [...] A-fib with dual lead ICD, chronic pain, YOCHA DEHE with cochlear implant Proc: 12/01 Revision PSF P15-opdsbq, decompression Exam: Normal motor exam. SILT. : 1945 Admit: 12/02/2023 Interval History: AFVSS. NAEON. No new labs. Pain controlled, resting comfortably eating breakfast. Exam: Dressing clean/dry/intact. 11/28 BUE/BLE, SILT all [...] 5/5 5/5 Wrist flexion (C7) 5/5 5/5 Test Hole Driller (C8) 5/5 5/5 Interosseous of hand (T1) [...] the appropriate orthopaedic surgery team, please use [email or web address] to page resident directly. If questions arise and the appropriate resident can't be reached or you are calling overnight, please contact [phone] ([facility]- 7:30 PM - 6:30 AM - Floor Resident) or [phone] (24 hours/day - Consult Resident) Cosigned by Rg Sultana MD at 12/13/2023 8:01 AM CDT * Ivy Swift MD - 12/12/2023 6:17 AM CDT Orthopaedic Spine Service Daily Progress Note Admit Date: 12/02/2023 Hospital Day: Michelle Dx: Pseudoarthrosis PMH: HTN, HLD, CAD, CHF, RBBB, A-fib with dual lead ICD, chronic pain, YOCHA DEHE with cochlear implant Proc: 12/01 Revision PSF C51-jpajyr, decompression Exam: Normal motor exam. SILT. : 1945 Admit: 12/02/2023 Interval History: AFVSS. NAEON. No new labs. Pain controlled, resting comfortably eating breakfast. Exam: Dressing clean/dry/intact. 11/28 BUE/BLE, SILT all [...] 5/5 5/5 Wrist flexion (C7) 5/5 5/5 Test Hole Driller (C8) 5/5 5/5 Interosseous of hand (T1) [...] [facility] Lab/Diagnostic Review: Recent Labs Lab Units 12/07/23 2033 SODIUM mmol/L 136 POTASSIUM PLASMA mmol/L 4.2 [...] Swift MD Department of Orthopaedic Surgery, PGY-5 [facility] in [facility] Please call with questions during daytime. See below for overnight issues. If you know the resident's name on the appropriate orthopaedic surgery team, please use [email or web address] to page resident directly. If questions arise and the appropriate resident can't be reached or you are calling overnight, please contact [phone] ([facility]- 7:30 PM - 6:30 AM - Floor Resident) or [phone] (24 hours/day - Consult Resident) Cosigned by [...] treatment team and contact the PT or SOFA INSPECTOR currently assigned to this patient. If a physical therapy clinician is not assigned to this patient, please call [phone]. 12/11/23 1630 PT Last Visit Session Type [...] Note Admit Date: 12/02/2023 Hospital Day: 9 Michelle Dx: Pseudoarthrosis PMH: HTN, HLD, CAD, CHF, RBBB, A-fib with dual lead ICD, chronic pain, YOCHA DEHE with cochlear implant Proc: 12/01 Revision PSF Q16-djccqf, decompression Exam: Normal motor exam. SILT. : 1945 Admit: 12/02/2023 Interval History: 12/10: [id number]. AFVSS. No new labs. Exam: Resting in bed. 5/ BUE/BLE, SILT all dermatomes, dressing c/d/I. PT/OT dispo to [facility] today pending insurance auth. Continue lovenox for [...] 5/5 5/5 Wrist flexion (C7) 5/5 5/5 Test Hole Driller (C8) 5/5 5/5 Interosseous of hand (T1) [...] dermatomes. Lab/Diagnostic Review: Recent Labs Lab Units 12/07/23203212/05/2355312/04/232127 SODIUM mmol/L 136 < > 136 POTASSIUM [...] 740a with Miguel Angel Edited by: Dalia Muhammad HIGH SCHOOL FOREIGN LANGUAGE TUTOR at 12/10/2023 1556 Please call with questions during daytime. See below for overnight issues. If you know the resident's name on the appropriate orthopaedic surgery team, please use [email or web address] to page resident directly. If questions arise and the appropriate resident can't be reached or you are calling overnight, please contact [phone] ([facility] 7:30 PM - 6:30 AM - Floor Resident) or [phone] (24 hours/day - Consult Resident) Cosigned by [...] Jeremy Michelle MD PhD Attending Spine Surgeon Grounding Engineer of Orthopaedic and Neurological Surgery [facility] Orthopaedics [facility] * Maikel Gordon OT - 12/10/2023 9:59 [...] not assigned to this patient, please call [phone]. 12/10/23 0997 General Session Type Treatment OT Received On [...] treatment team and contact the PT or SOFA INSPECTOR currently assigned to this patient. If a physical therapy clinician is not assigned to this patient, please call [phone]. 12/10/23 6391 PT Last Visit Session Type Treatment PT [...] cues to perform task; performed to don clam shell TLSO prior to mobility tasks Transfers [...] A-fib with dual lead ICD, chronic pain, YOCHA DEHE with cochlear implant Proc: 12/01 Revision PSF N33-gbyvvp, decompression Exam: Normal motor exam. SILT. : 1945 Admit: 12/02/2023 Interval History: 12/09: POD8. AFVSS. No new labs. Exam: Resting in bed. 11/28 BUE/BLE, SILT all dermatomes, dressing c/d/I. PT/OT dispo to [facility] today pending insurance auth. Continue lovenox for [...] 5/5 5/5 Wrist flexion (C7) 5/5 5/5 Test Hole Driller (C8) 5/5 5/5 Interosseous of hand (T1) [...] [facility] Lab/Diagnostic Review: Recent Labs Lab Units 12/07/23203212/05/2354 12/04/23212712/03/23224512/03/232106 SODIUM mmol/L 136 < > 136 < [...] with Miguel Angel Edited by: Opal Whitney, HIGH SCHOOL FOREIGN LANGUAGE TUTOR at 12/09/2023 1651 Please call with questions during daytime. See below for overnight issues. If you know the resident's name on the appropriate orthopaedic surgery team, please use [email or web address] to page resident directly. If questions arise and the appropriate resident can't be reached or you are calling overnight, please contact [phone] ([facility] 7:30 PM - 6:30 AM - Floor Resident) or [phone] (24 hours/day - Consult Resident) Cosigned by [...] treatment team and contact the PT or SOFA INSPECTOR currently assigned to this patient. If a physical therapy clinician is not assigned to this patient, please call [phone]. 12/09/23 1417 PT Last Visit Session Type [...] A-fib with dual lead ICD, chronic pain, YOCHA DEHE with cochlear implant Proc: 12/01 Revision PSF C58-mnxyix, decompression Exam: Normal motor exam. SILT. : 1945 Admit: 12/02/2023 Interval hx: 12/08: POD7. AFVSS. Labs from yesterday: WBC 8.9, H/H 9.1/26.9, Cr 0.63. AM labs pending today. Exam: Resting in bed. 11/28 BUE/BLE, SILT all dermatomes, dressing c/d/I. PT/OT dispo to [facility].- referrals sent. Continue lovenox for DVT ppx [...] 5/5 5/5 Wrist flexion (C7) 5/5 5/5 Test Hole Driller (C8) 5/5 5/5 Interosseous of hand (T1) [...] the appropriate orthopaedic surgery team, please use [email or web address] to page resident directly. If questions arise and the appropriate resident can't be reached or you are calling overnight, please contact [phone] ([facility]- 7:30 PM - 6:30 AM - Floor Resident) or [phone] (24 hours/day - Consult Resident) Cosigned by [...] A-fib with dual lead ICD, chronic pain, YOCHA DEHE with cochlear implant Proc: 12/01 Revision PSF V88-eoafaa, decompression Objective Past Medical History: Diagnosis Date Allergic rhinitis Anxiety unknown maybe 1989 Arthritis 2019 Atrial fibrillation (CMS/HCC) (HCC) Auditory vertigo Meniere's [...] sodium chloride 0.9%, 0.5-20 mL, intra-catheter, Q8H [facility] Continuous Infusions: PRN Meds: bisacodyl EC sodium chloride 0.9% fluticasone propionate HYDROmorphone magnesium hydroxide mineral oil ondansetron oxyCODONE prochlorperazine simethicone sodium chloride 0.9% Recent Labs Lab Units 12/07/23203212/06/23205012/05/23193612/05/2355312/04/232127 SODIUM mmol/L 136 137 135 < > 136 POTASSIUM PLASMA mmol/L 4.2 4.2 3.7 < > 3.6 CHLORIDE mmol/L 102 104 103 < > 104 CO2 mmol/L 27 25 25 < > 26 BUN SERUM mg/dL 7 6 5* < > 7 CREATININE mg/dL 0.63 0.62 0.56* < > 0.54* GEB-VGM-MGXLHFA mL/min/1.73 m2 >90 >90 >90 < > >90 CALCIUM mg/dL 8.2* 8.0* 8.2* < > 7.8* ALBUMIN g/dL -- -- -- -- 2.8* PHOSPHORUS PLASMA mg/dL 3.0 2.6 2.3 < > 1.7* MAGNESIUM mg/dL 2.0 2.1 2.2 < > 1.8 < > = values in this interval not displayed. Recent Labs Lab Units 12/07/23203212/06/23205012/05/23193612/05/2355312/04/23212712/04/23192712/04/23 1540 GLUCOSE mg/dL 98 93 116 117 [...] Start Ordered 12/08/23 1123 Oral Nutrition Supplements ([facility]) Select Supplement: Ensure PLUS High Protein - Chocolate All Meals Question: ([facility]) Select Supplement: Answer: Ensure PLUS High Protein - Chocolate 12/08/23 1122 12/04/23 0939 Adult Diet Restricted; 2 GM Sodium Diet effective now Question Answer Comment ([facility]) Diet type Restricted Fat / [...] Stool patterns, Supplement tolerance, Weight changes Latricia Chao MS RD LD #[phone] * Amy Jean, PT - 12/08/2023 10:21 [...] treatment team and contact the PT or SOFA INSPECTOR currently assigned to this patient. If a physical therapy clinician is not assigned to this patient, please call [phone]. 12/08/23 1021 PT Last Visit Session Type [...] A-fib with dual lead ICD, chronic pain, YOCHA DEHE with cochlear implant Proc: 12/01 Revision PSF P57-ljiwcd, decompression Exam: Normal motor exam. SILT. : [...] 5/5 5/5 Wrist flexion (C7) 5/5 5/5 Test Hole Driller (C8) 5/5 5/5 Interosseous of hand (T1) [...] Review: Recent Labs Lab Units 12/07/23203212/05/23 0554 12/04/23212712/03/23224512/03/23210612/03/23210412/03/23 0353 SODIUM mmol/L 136 < > 136 [...] needs bone stimulator (tasked) 12/01: OR 12/02 MUSCULOSKELETAL PHYSIOTHERAPIST dc'd. Patient had a run of Vtach, [...] Edited by: Ivelisse Olivares MD at 12/08/2023 0526 Please call with questions during daytime. See below for overnight issues. If you know the resident's name on the appropriate orthopaedic surgery team, please use [email or web address] to page resident directly. If questions arise and the appropriate resident can't be reached or you are calling overnight, please contact [phone] ([facility] 7:30 PM - 6:30 AM - Floor Resident) or [phone] (24 hours/day - Consult Resident) Cosigned by [...] not assigned to this patient, please call [phone]. 12/07/23 1045 General Chart Reviewed Yes Session [...] Equipment-Currently Using None Prior Function Level of Mower Independent with ADLs;Independent functional transfers;Independent with ambulation [...] treatment team and contact the PT or SOFA INSPECTOR currently assigned to this patient. If a physical therapy clinician is not assigned to this patient, please call [phone]. 12/07/23 0850 PT Last Visit Session Type Treatment PT Received On 12/07/23 Safe Environment Arm band checked;Session completed bedside Subjective Agreeable to Therapy Family/Caregiver Present No Precautions Precautions Drains;Fall risk;Spinal/Back Weight Bearing Restrictions No Braces/Orthoses TLSO (Donned prior to session by RN) Precaution Comments Verbally reviewed precautions, patient verbalized understanding Activity Tolerance Activity Tolerance Comments Karyna: SE (06/15) Pain Assessment Pain Assessment No/denies pain [...] Problem List Comments PT Diagnosis: Revision PSF O36-fczobb, decompression results in above listed activity deficits [...] A-fib with dual lead ICD, chronic pain, YOCHA DEHE with cochlear implant Proc: 12/01 Revision PSF P97-petpbb, decompression Exam: Normal motor exam. SILT. : 1945 Admit: 12/02/2023 Interval hx: 12/06: POD5. Intermittently back in afib o/n requiring amio bolus and magnesium- now back in NSR with HR is 60s on oral amio. Off all pressors x24 hours. WBC 6.9, H/H 8.7/25.8, Cr 0.62 . D1 to gravity, 20/55cc. Exam: Resting in bed. 11/28 BUE/BLE, SILT [...] 5/5 5/5 Wrist flexion (C7) 5/5 5/5 Test Hole Driller (C8) 5/5 5/5 Interosseous of hand (T1) [...] Review: Recent Labs Lab Units 12/06/23222312/06/23205012/05/23 0554 12/04/23212712/03/23224512/03/23210612/03/23210412/03/23 0353 SODIUM mmol/L -- 137 < > [...] needs bone stimulator (tasked) 12/01: OR 12/02 MUSCULOSKELETAL PHYSIOTHERAPIST dc'd. Patient had a run of Vtach, [...] the appropriate orthopaedic surgery team, please use [email or web address] to page resident directly. If questions arise and the appropriate resident can't be reached or you are calling overnight, please contact [phone] ( 7:30 PM - 6:30 AM - Floor Resident) or [phone] (24 hours/day - Consult Resident) Cosigned by Rg Sultana MD at 12/22/2023 4:01 PM CDT * Sydnee Collier NP - 12/07/2023 6:35 AM CDTAssociated Order(s): Critical Care Post-Procedure Diagnose(s): Atrial fibrillation with RVR (CMS/HCC) (HCC) Surgical ICU Daily Progress Team: Blue AM 3 Subjective Patient is a 78 y.o. female admitted on 12/02/2023 6:42 AM with chief complaint of C67-kecfas PSF. PMH: Hypertension, Hyperlipidemia, CAD, CHF, RBBB, A-fib with dual lead ICD, chronic pain, YOCHA DEHE withcochlear implant Interval History: - ramelteon - increase robaxin 750 q8h - resume home statin - amiodarone load - f/u re: anticoagulation with Ortho, cards - void trial tomorrow, holding flomax with c/f hypotension - TTF Hospital Course/Events/Procedures: 12/01: T65-jxshod PSIF, TTF post op 12/02: (pm) afib [...] 1.4 - 2.5 mg/dL Phosphorus Collection Time: 05/12/24 8:51 PM Result Value Ref Range Phosphorus, [...] 4 #Thoracolumbar pseudoarthrosis, chronic - 12/01: s/p E78-zgjkzl PSF revision - Ortho spine primary - Q4H NC - Monitor AUDREY output - Brace per Ortho spine - PT/OT - Per Ortho spine, no therapeutic AC until POD 30 #Anxiety, chronic #Depression, chronic - Continue home cymbalta - Holding home doxepin, prn ativan #YOCHA DEHE, chronic - s/p cochlear implant CV: #Afib with RVR on chronic paroxysmal Afib - 12/02: AF with RVR and ACT called. DCCV with brief conversion to paced rhythm before reverting backin AF with rates 110-120's. Given amio bolus - 12/03: AF with RVR again overnight, amio bolus x 2 and started on amio gtt - pt has [employer] dual lead PPM with ICD in [...] + RAP (3), normal diastolic function - [employer] dual lead PPM with ICD in [...] the ICU attending and fellow. Sydnee Collier [facility] Critical Care Performed by: Sydnee Collier NP [...] plan with the patient's team and other medical/process consultant staff. This time was in addition [...] Post-Procedure Diagnose(s): Atrial fibrillation with RVR (CMS/HCC) ([facility]) Surgical ICU Daily Progress Note Team: Blue [...] Objective Physical Exam: Neuro: rouses to voice, YOCHA DEHE, A&O x 4, follows commands, REED, 5/5 [...] of pain #Thoracolumbar pseudoarthrosis: - 12/01: revision F40-gmengj PSF - q4 hour neuromotor checks - [...] started on amio gtt - pt has [employer]. dual lead PPM with ICD in place. [...] plan with the patient's team and other medical/process consultant staff. This time was in addition [...] A-fib with dual lead ICD, chronic pain, YOCHA DEHE with cochlear implant Proc: 12/01 Revision PSF H25-jiwxfe, decompression Exam: Normal motor exam. SILT. : [...] Sitting upright in chair, TLSO in place. 5/5 BUE/BLE, SILT all dermatomes, dressing c/d/I. [...] In: 3148.7 [P.O.:1240; I.V.:998.7; IV Piggyback:910] Out: 2004 [Urine:1767; Drains:237] I/O this shift: In: 25 [...] 5/5 5/5 Wrist flexion (C7) 5/5 5/5 Test Hole Driller (C8) 5/5 5/5 Interosseous of hand (T1) [...] female with thoracolumbar pseudoarthrosis, now s/p revision L98-vcwmly, T12/L1, L1/L2 PCOs. Post-operative course complicated by [...] PGY-2 For questions please reach out to: Sun-Thur 7:30p-6:30a (Night Floor Resident): [phone] Consult Resident: [phone] Specific Resident: [email or web address] to page/call appropriate Orthopaedic Surgery Team/Resident Call Schedule: PARAMJIT for [facility] Orthopaedic Surgery (pw: [facility]) For ortho primary adult patients, Thu - Thu-6p: Call [phone] nurses station for PA/HIGH [employer]CHO[employer] FORE[employer] LANGUAGE TUTOR ([phone]) For ortho primary pediatric patients, Thu6p: Call 10th floor nurses station for HIGH SCHOOL FOREIGN LANGUAGE TUTOR Cosigned by Rg Sultana MD at 12/22/2023 4:01 PM CDT * Lne Klein PA - 12/06/2023 6:18 AM CDTAssociated Order(s): Critical Care Post-Procedure Diagnose(s): Atrial fibrillation with RVR (CMS/HCC) (HCC) Images from the original note were not included. ICU Daily Progress Team: Blue AM Subjective Patient is a 78 y.o. female admitted to SICU from floor 2/2 afib RVR c/b hypotension requiring electrical cardioversion. Post-op day 2 from I12-apshqq PSF. PMH: Hypertension, Hyperlipidemia, CAD, CHF, RBBB, A-fib with dual lead ICD, chronic pain, YOCHA DEHE withcochlear implant Interval History: - D/c baclofen, [...] over all status. Brief Hospital Course: 12/01: W41-wwvsdo PSIF 12/02: (pm) afib rvr/SVT, rates to [...] Infusions:amiodarone, 0.5 mg/min, Last Rate: 0.5 mg/min (12/06/23599) dextrose 5% and Lactated Ringer's, 25 mL/hr, Last Rate: 25 mL/hr (12/06/23599) sodium chloride 0.9%, 3-12 mL/hr, Last Rate: 3 mL/hr (12/06/23599) PRN Meds:. bisacodyl EC sodium chloride 0.9% [...] multiple previous spine surgeries now s/p (12/01) K24-tnksvq PSIF - Ortho-spine primary - Follow drain output Cardiovascular: # Elevated Troponin Troponin 94 > 14,000, downtrended # Acute Afib RVR/SVT # Paroxysmal atrial fibrillation, chronic Home meds: dilt-XR 180 mg daily, lasix 40 mg BID, metop 25 mg IR BID, Eliquis 5 mg BID. S/p [employer] dual lead AV ICD w/ pacing function placement 05/2021 for VT/VF primary prevention - Cardiology following - S/p DCCV 12/02 during ACT w/ brief conversion to paced rhythm before reverting back into irregularrhythm w/ rates 110's-120's. Given amio bolus, gtt started - Continue PO amio - 12/05: did not tolerate PO metop 6.25 mg x 1 2/ hypotension - Optimize electrolytes - TTE ordered # RBBB, chronic # AV block, 2nd Degree, chronic # Hypertrophic Cardiomyopathy, chronic Follows w/ [facility] Cardiology Dr. Talbert, Complaint Specialist Dr. Recio - AICD in place - EKG in 07/2023 in sinus rhythm; 12/02 1400 NSR, 12/02 (pm) Afib with RVR w/ hypotension requiring electrical cardioversion, amio bolus/infusion - Cardiology following Pulmonary: # Acute respiratory insufficiency 08/28 afib RVR/SVT - Currently on 4L NC - Wean for spo2>92% GI: Diet: Regular diet RENAL: - Bedoya in place w/ adequate UOP HEME: DVT PPx: lovenox # ABLA 08/28 surgery - Hgb stable, monitor daily CBC, [...] plan with the ICU team and other medical/process consultant staff, making frequent assessments and decisions [...] - pt unable to void x 2, Bedoya replaced - Reviewed and ordered pertinent laboratory tests. Reviewed any radiological imaging pertinent to patients current treatments. Ongoing evaluation of I/O's, vitals and oxygen requirements throughout shift. Multiple bedside evaluations of patients over all status. Objective Physical Exam: Neuro: rouses to voice, YOCHA DEHE, A&O x 4, follows commands, REED, 5/5 BUE, 4/5 BLE, PERRl CV: rate controled atrial fibrillation, extremities warm, palpable DP and radial pulses BLE, 2+ edema Pulm: CTAB ABD: normoactive BS, soft, NT/ND Skin: surgical incision to back c/d/I Drains: Bedoya, AUDREY x 1 to back Medications Scheduled Meds:acetaminophen, 1,000 mg, oral, Q6H [facility] [START ON 12/07/2023] alendronate, 70 mg, oral, [...] 0.9%, 3-12 mL/hr, Last Rate: 3 mL/hr (12/05/23 0600) PRN Meds:. bisacodyl EC sodium chloride [...] of pain #Thoracolumbar pseudoarthrosis: - 12/01: revision L21-kauwth PSF - q4 hour neuromotor checks - [...] time per ortho spine - pt has [employer]. dual lead PPM with ICD in place. [...] plan with the patient's team and other medical/process consultant staff. This time was in addition [...] A-fib with dual lead ICD, chronic pain, YOCHA DEHE with cochlear implant Proc: 12/01 Revision PSF W69-gtybvf, decompression Exam: Normal motor exam. SILT. : [...] by: Rose Marie Velazquez MD at 12/05/2023 0816 Objective Vitals: 24hr Min/Max: Temp Min: 36.8 [...] 5/5 5/5 Wrist flexion (C7) 5/5 5/5 Test Hole Driller (C8) 5/5 5/5 Interosseous of hand (T1) [...] female with thoracolumbar pseudoarthrosis, now s/p revision P53-dlldgb, T12/L1, L1/L2 PCOs. Post-operative course complicated by [...] out to: Abhijeet 7:30p-6:30a (Night Floor Resident): [phone] Consult Resident: [phone] Specific Resident: [email or web address] to page/call appropriate Orthopaedic Surgery Team/Resident Call Schedule: PARAMJIT for [facility] Orthopaedic Surgery (pw: [facility]) For ortho primary adult patients, Thu-6p: Call [phone] nurses station for PA/H[employer]CHO[employer] FORE[employer] LANGUAGE TUTOR ([phone]) For ortho primary pediatric patients, Thu6p: Call 10th floor nurses station for HIGH SCHO[employer] FORE[employer] LANGUAGE TUTOR Cosigned by Jeremy Michelle MD at 12/05/2023 1:40 PM CDT * Liz Doll, PT - 12/05/2023 8:05 AM CDT Physical [...] treatment team and contact the PT or SOFA INSPECTOR currently assigned to this patient. If a physical therapy clinician is not assigned to this patient, please call [phone]. 12/05/23 0805 PT Last Visit Session Type [...] requiring electrical cardioversion. Post-op day 2 from G84-zsutct PSF. PMH: Hypertension, Hyperlipidemia, CAD, CHF, RBBB, A-fib with dual lead ICD, chronic pain, YOCHA DEHE withcochlear implant Interval History: - NE off, 500 mL LR - Keep elmira overnight - Continue amio gtt overnight - Reviewed and ordered pertinent laboratory tests. Reviewed any radiological imaging pertinent to patients current treatments. Constant evaluation of I/O's, vitals and oxygen requirements throughout shift. Multiple bedside evaluations of patients over all status. Brief Hospital Course: 12/01: L02-fjphjh PSIF 12/02: (pm) afib rvr/SVT, rates to [...] Intake/Output Summary (Last 24 hours) at 12/05/2023 0712 Last data filed at 12/05/2023 0600 Gross [...] multiple previous spine surgeries now s/p (12/01) X70-kmoujf PSIF - Ortho-spine primary - Follow drain output Cardiovascular: # Elevated Troponin Troponin 94 > 14,000. Pt denies CP/SOB/other ACS symptoms - Cardiology c/s, f/u recommendations - Trend troponin until peak - Serial EKG # Acute Afib RVR/SVT # Paroxysmal atrial fibrillation, chronic Home meds: dilt-XR 180 mg daily, lasix 40 mg BID, metop 25 mg IR BID, Eliquis 5 mg BID. S/p [employer] dual lead AV ICD w/ pacing [...] chronic # Hypertrophic [facility]omyopathy, [facility], Complaint Specialist Dr. Recio - AICD in place - [...] UOP HEME: DVT PPx: lovenox # ABLA 2/ surgery - Hgb stable, monitor daily CBC, transfuse for Hgb <7 and/or hemodynamic instability w/ active bleeding ID: # Leukocytosis Likely reactive - Postop abx complete - Trend WBC, monitor fever curve Intensive Care Unit Standards of Care: Diet: regular Restraints: n/a Vascular access: PIV, radial emlira Goals of care: full code Assessment and [...] plan with the ICU team and other medical/process consultant staff, making frequent assessments and decisions [...] AM CDT Spiritual Care Robb Castellanos 12/05/23 [phone] 12/05/23 0600 Time Spent Start Time 0625 Stop Time 0640 Time Calculation (min) 15 min Patient Spiritual Assessment Spirituality Assessed Focus of Care Taoism Affiliation Anglican Spiritual Needs Prayer Clinical Encounter Type Visited With Patient and family together Response Type Routine visit Routine Visit Introduction Reason for visit Support Outcomes and Progress Aligning care with patient's values Achieved Preserve dignity and respect Achieved Demonstrating care and respect Achieved Tracy affirmation Achieved Establish rapport and connectedness Achieved Sense of peace Achieved Interventions Interventions Offer emotional support;Offer spiritual/rastafari support;Prayer * Chinyere Abreu, LU - 12/04/2023 7:41 PM CDTAssociated Order(s): Critical Care Post-Procedure Diagnose(s): Atrial fibrillation with RVR (CMS/HCC) ([facility]) Surgical ICU Daily Progress Note Team: Blue [...] Objective Physical Exam: Neuro: rouses to voice, YOCHA DEHE, A&O x 4, follows commands, REED, 5/5 BUE, 4/5 BLE, PERRl CV: rate controled atrial fibrillation, extremities warm, palpable DP and radial pulses BLE, 2+ edema Pulm: CTAB ABD: normoactive BS, soft, NT/ND Skin: surgical incision to back c/d/I Drains: AUDREY Bedoya x 1 to back Medications Scheduled Meds:acetaminophen, 1,000 mg, oral, Q6H [facility] [START ON 12/07/2023] alendronate, 70 mg, oral, [...] Intake/Output: Intake/Output Summary (Last 24 hours) at 12/04/20231941 Last data filed at 12/04/2023 1900 Gross [...] Back Juanito Renteria Credentials RN Called By CARLOS Lipid panel Collection Time: 12/04/23 11:33 AM [...] of pain #Thoracolumbar pseudoarthrosis: - 12/01: revision E78-phklmm PSF - q4 hour neuromotor checks - [...] time per ortho spine - pt has [employer]. dual lead PPM with ICD in place. [...] plan with the ICU team and other medical/process consultant staff, making frequent assessments and decisions [...] treatment team and contact the PT or SOFA INSPECTOR currently assigned to this patient. If a physical therapy clinician is not assigned to this patient, please call [phone]. 12/04/23 1059 PT Last Visit Session Type [...] A-fib with dual lead ICD, chronic pain, YOCHA DEHE with cochlear implant Proc: 12/01 Revision PSF R00-bynffs, decompression Exam: Normal motor exam. SILT. : [...] 5/5 5/5 Wrist flexion (C7) 5/5 5/5 Test Hole Driller (C8) 5/5 5/5 Interosseous of hand (T1) [...] Units 12/04/23 0709 12/03/23 2318 12/03/23 2246 12/03/23 2107 12/03/23 2106 12/03/23 2105 12/03/23 0353 SODIUM mmol/L -- -- -- -- [...] female with thoracolumbar pseudoarthrosis, now s/p revision P34-reuycc, T12/L1, L1/L2 PCOs. Post-operative course complicated by afib with RVR and hemodynamic instability, now stabilized in SICU. Appreciate ongoing SICU care. Consults: None Meds: Multimodal pain Results: N/A Drains / bedoya: Deep/superficial / Continue bedoya ASA / PLX / Anticoag: SCDs, ambulatory. Lvx POD2 Incision / Brace: monocryl, dermabond, tegaderm /custom TLSO Dispo / FU: 12/22 CAM6B sIabelle Deleon MD Department of Orthopaedic Surgery, PGY-3 [facility] in [place] Please call with questions during daytime. See below for overnight issues. If you know the resident's name on the appropriate orthopaedic surgery team, please use [email or web address] to page resident directly. If questions arise and the appropriate resident can't be reached or you are calling overnight, please contact [phone] ([place]- 7:30 PM - 6:30 AM - Floor Resident) or [phone] (24 hours/day - Consult Resident) Cosigned by [...] Jeremy Michelle MD PhD Attending Spine Surgeon Grounding Engineer of Orthopaedic and Neurological Surgery [facility] Orthopaedics [facility] * Len Klein PA - 12/04/2023 6:53 AM CDTAssociated Order(s): Critical Care Post-Procedure Diagnose(s): Atrial fibrillation with RVR (CMS/HCC) (HCC) Images from the original note were not included. ICU Daily Progress Team: Blue ESCOBAR Subjective Patient is a 78 y.o. female admitted to SICU from floor 2/2 afib RVR c/b hypotension requiring electrical cardioversion. Post-op day 2 from S86-tyllmq PSF. PMH: Hypertension, Hyperlipidemia, CAD, CHF, RBBB, A-fib with dual lead ICD, chronic pain, YOCHA DEHE withcochlear implant Interval History: - NE for [...] over all status. Brief Hospital Course: 12/01: J51-ztyiud PSIF 12/02: (pm) afib rvr/SVT, rates to [...] norepinephrine, 0-2 mcg/kg/min, Last Rate: 0.08 mcg/kg/min (12/04/23 0624) sodium chloride 0.9%, 3-12 mL/hr, Last Rate: [...] chronic - [facility] Thoracolumbar Pseudoarthrosis, POA S/p multiple previous spine surgeries now s/p (12/01) B36-hrsqqg PSIF - Ortho-spine primary - Follow drain output Cardiovascular: # Elevated Troponin Troponin 94 > 14,000. Pt denies CP/SOB/other ACS symptoms - Cardiology c/s, f/u recommendations - Trend troponin until peak - Serial EKG # Acute Afib RVR/SVT # Paroxysmal atrial fibrillation, chronic Home meds: dilt-XR 180 mg daily, lasix 40 mg BID, metop 25 mg IR BID, Eliquis 5 mg BID. S/p [employer] dual lead AV ICD w/ pacing [...] chronic # Hypertrophic Cardiomyopathy, chronic Follows w/ [facility] Cardiology Dr. Talbert, Complaint Specialist Dr. Recio - AICD in place - EKG in 07/2023 in sinus rhythm; 12/02 1400 NSR, 12/02 (pm) Afib with RVR w/ hypotension requiring electrical cardioversion, amio bolus/infusion - Cardiology following # Undifferentiated Shock Possibly cardiogenic - NE for SBP >120 - Received 1.5 L crystalloid overnight Pulmonary: # Acute respiratory insufficiency / afib RVR/SVT - Currently on 4L NC - Wean for spo2>92% GI: Diet: Regular diet RENAL: - Bedoya in place w/ adequate UOP HEME: DVT PPx: lovenox # ABLA 2/ surgery - Hgb stable, monitor daily CBC, [...] plan with the ICU team and other medical/process consultant staff, making frequent assessments and decisions [...] of the following conditions: Cosigned by Kaley Anderson MD at 12/07/2023 9:08 AM CDT * [...] electrolyte abnormality/fluids/etc. Has already been seen by meter inspector. Echo/EKG completed. Has known hx of afib with recent history - pacemaker/ICD. I discussed care with patient's and with Attending in the ICU who was also at bedside. Patient now appears more stable with ongoing efforts from ICU team. Appreciate outstanding care from our ICU colleagues and cardiology colleagues. All questions answered of patient's spouse. Please reach out with any updates/changes. [phone] Jeremy Michelle MD PhD Attending Spine Surgeon Grounding Engineer of Orthopaedic and Neurological Surgery [facility] * Gisel Esquivel OT - 12/03/2023 12:55 [...] able to check back today) * Belén Alvarez, PT - 12/03/2023 11:51 AM CDT Physical [...] treatment team and contact the PT or SOFA INSPECTOR currently assigned to this patient. If a physical therapy clinician is not assigned to this patient, please call [phone]. 12/03/23 1151 General Chart Reviewed Yes Session [...] Equipment-Currently Using None Prior Function Level of Mower Independent functional transfers;Independent with ambulation Lives With [...] with Outstretched Arm While Standing 0 9. Gauge Controller Object from Floor from a Standing Position [...] Problem List Comments PT Diagnosis: Revision PSF U17-xyiugj, decompression results in above listed activity deficits [...] A-fib with dual lead ICD, chronic pain, YOCHA DEHE with cochlear implant Proc: 12/01 Revision PSF A94-dvmhrp, decompression Exam: Normal motor exam. SILT. : 1945 Admit: 12/02/2023 Interval History: 12/03/23: AFVSSJUDI. WBC 11.4, H/H 10.3/30.6, Cr 0.65 Drain [...] 5/5 5/5 Wrist flexion (C7) 5/5 5/5 Test Hole Driller (C8) 5/5 5/5 Interosseous of hand (T1) [...] female with thoracolumbar pseudoarthrosis, now s/p revision A38-wplbsz, T12/L1, L1/L2 PCOs. Consults: None Meds: Multimodal pain Results: N/A Drains / bedoya: Deep/superficial / Continue bedoya ASA / PLX / Anticoag: SCDs, ambulatory. Lvx POD2 Incision / Brace: monocryl, dermabond, tegaderm /custom TLSO Dispo / FU: 12/22 CAM6B Isabelle Deleon MD Department of Orthopaedic Surgery, PGY-3 [facility] in [place] Please call with questions during daytime. See below for overnight issues. If you know the resident's name on the appropriate orthopaedic surgery team, please use [email or web address] to page resident directly. If questions arise and the appropriate resident can't be reached or you are calling overnight, please contact [phone] ( 7:30 PM - 6:30 AM - Floor Resident) or [phone] (24 hours/day - Consult Resident) Cosigned by [...] Jeremy Michelle MD PhD Attending Spine Surgeon Grounding Engineer of Orthopaedic and Neurological Surgery [facility] * Janet Genao MD - 12/02/2023 8:12 PM CDT Orthopaedic Surgery Compartment Check December 02, 2023 8:12 PM Admit Date: 12/02/2023 Hospital Day: 0 [facility] Dx: Pseudoarthrosis PMH: HTN, HLD, CAD, CHF, RBBB, A-fib with dual lead ICD, chronic pain, YOCHA DEHE with cochlear implant Proc: Revision PSF N60-kvdzaz, decompression Exam: Normal motor exam. SILT. : [...] out to: Abhijeet 7:30p-6:30a (Night Floor Resident): [phone] Consult Resident: [phone] Specific Resident: [email or web address] to page/call appropriate Orthopaedic Surgery Team/Resident Call Schedule: AMION for [facility] Orthopaedic Surgery (pw: [facility]) For ortho primary adult patients, Thu - Thu-6p: Call [phone] nurses station for PA/HIGH SCHOOL FOREIGN LANGUAGE TUTOR ([phone]) For ortho primary pediatric patients, Thu - Thu-6p: Call 10th floor nurses station for HIGH SCHOOL FOREIGN LANGUAGE TUTOR Cosigned by Jeremy Michelle MD at 12/05/2023 [...] kyphosis who presented for scheduled revision with Y57-pwxjxk PSF. She was admitted to the floor [...] A-fib with dual lead ICD, chronic pain, YOCHA DEHE withcochlear implant Acute events: -1.5L crystalloid -Elmira [...] of Systems Vitals: Most Recent : Vitals: 12/03/23 2215 BP: 100/55 Pulse: 116 Resp: 17 Temp: 37.9 ??C (100.2 ??F) SpO2: 97% Hemodynamics: MAP (mmHg): [46-94] 62 Pulmonary Support: O2 Therapy: Supplemental oxygen O2 Del Method: Nasal cannula O2 Flow Rate (L/min): 4 L/min Intake/Output: Intake/Output Summary (Last 24 hours) at 12/03/2023 2220 Last data filed at 12/03/2023 2205 Gross per 24 hour Intake 4205.97 ml [...] pseudoarthrosis: -s/p multiple previous spine surgeries -12/01: Z42-kwsthd PSF revision -Follow drain output -Ortho-spine primary [...] Nutrition plan: NPO DVT prophylaxis: SCDs Access: PIVs, elmira Goals of care: Full code Juanito Sanchez [...] plan with the ICU team and other medical/process consultant staff, making frequent assessments and decisions [...] - DEPUY EXPEDIUM--Posterior spinal instrumented fusion revision C51-Cukbiy with posterior column osteotomies T12/L1 and L1/2, exploration of fusion, removal of hardware, autograft, allograft, bone morphogentic protein, spinal cord monitoring. REMOVAL HARDWARE SPINE OSTEOTOMY POSTERIOR SPINAL SPINAL CORD MONITORING BONE GRAFT WITH BONE MORPHOGENIC PROTEIN No changes in exam. Risks/benefits discussed this AM. Signed, consented and wishes to proceed with above. Jeremy Michelle MD PhD Attending Spine Surgeon Grounding Engineer of Orthopaedic and Neurological Surgery [facility] Source Note Rachel Neves NP - 11/12/2023 12:51 PM CDT Images from the original note were not included. Center for Preoperative Assessment and Planning Preoperative Evaluation Record Evaluation type/location: CPAP [facility] Planned procedure site: [facility] (Pods 2/3/5/ANTIQUE FINISHER) Date: 11/12/23 Anesthesia Evaluation Macie Briseno is a 78 y.o. female FUSION DECOMPRESSION LAMINECTOMY WITH INSTRUMENTATION - DEPUY EXPEDIUM--Posterior spinal instrumented fusion revision Q18-Imxsuf with posterior column osteotomies T12/L1 and L1/2, [...] - DEPUY EXPEDIUM--Posterior spinal instrumented fusion revision E08-Ynqiii with posterior column osteotomies T12/L1 and L1/2, [...] dual lead ICD (atrioventricular, w/pacing functions). Brand: [employer]. Indication: primary prevention of VF/VT. Year inserted / last revised: 05/2021. Pacemaker dependent: unknown Pertinent negatives: ID ; CABG ; systolic/diastolic dysfunction w/o CHF ; valve replacement; PVD; DVT/PE; drug-eluting stent(s); bare metal stent(s); unknown stent(s) type and coronary angioplasty Comments: [facility] microbiology coordinator Dr. Tab WICK ~3 weeks ago EP physician Dr. Hemal WICK ~02/2023 [facility]U EP SHAMIKA 09/29/23 1. Hypertrophic cardiomyopathy 2. Second degree AV block 3. Atrial fibrillation RVR with inappropriate ICD shocks 06/29/2023 a. ICD reprogrammed to VT zone at 188 bpm, no therapy b. No recurrent ICD shocks since then 4. Dual chamber ICD - [employer] a. Generator: [employer] [id number], implanted 06/05/2021 b. Atrial lead: [employer] 0672, implanted 06/05/2021 c. Right ventricular lead: [employer] 7841, implanted 06/05/2021 Respiratory Pertinent negatives: [...] pain (none since starting metoprolol prescribed by microbiology coordinator dr Talbert, ~1.5 months ago, resolved with [...] DEVICE SUMMARY 1. Device brand known: Yes [employer] 2. Device type known: Yes Dual lead ICD (atrioventricular, with pacing functions) 3. Device location known: Yes, l chest 4. Cardiac Rhythm Device Communication Request form: Pending 5. Patient pacemaker dependent: Uncertain 6. Operation near cardiac rhythm device: No 7. Magnet positioning feasible for procedure: No 8. Device response to magnet: Pending confirmation 9. Device sales representative metals needed on day of surgery: Yes. Awaiting call back from device rep. [employer] technology staff message sent to surgeon's office, notified that CPAP is arranging for rep to be present, and to please reach out to Drug Response Dx if date or time of surgery changes so that rep can be present on DOS. Cardiac Rhythm Device Communication Request form will be transmitted to patients Electrophysiology physician or other clinician managing cardiac rhythm device. This patient has a history of atrial fibrillation with a [id number] score of 5 at MODERATE risk for perioperative thromboembolic events due to [id number] score as per the 2017 ACC Expert [...] Follow up note Spoke with Scott from [employer].. Rep aware and will be present. Follow-up completed by: Bonnie Moe NP on 11/12/23 at 5:44 PM Follow up note Labs reviewed and are without significant findings. Awaiting additional lab results: nicotine. Awaiting outside records. Awaiting PPM/ICD communication form. Surgeon's office reviews laboratory results independently, including final results of surgeon ordered labs. ++PPM form- see above rep aware ++Dr. Talbert Cards last OVN, TTE, Stress for chart completion Follow-up completed by: Amy Vallejo NP on 11/13/23 at 3:25 PM Follow up note Cardiac Rhythm Device Communication Request form received, reviewed and submitted for scanning intoEMR. CARDIAC RHYTHM DEVICE SUMMARY 1. Device brand known: Yes [employer] 2. Device type known: Yes Dual lead ICD (atrioventricular, with pacing functions) 3. Device location known: Yes, l chest 4. Cardiac Rhythm Device Communication Received 5. Patient pacemaker dependent: No 6. Operation near cardiac rhythm device: No 7. Magnet positioning feasible for procedure: No 8. Device response to magnet: Suspension of anti-tachy therapy while magnet in place 9. Device sales representative metals needed on day of surgery: Yes. Rep and surgeon aware per above Cardiac Rhythm Device Communication Request form will be transmitted to patients Electrophysiology physician or other clinician managing cardiac rhythm device. Awaiting urine nicotine Awaiting Dr. Talbert Cards last OVN, TTE, Stress for chart [...] -- 02/04/23 -- Emmanuel Briones MD DULoxetine DR (CYMBALTA) 60 mg capsule -- [...] (CARAFATE) 1 gram tablet -- -- -- Provider, MD Emmanuel Current Outpatient Medications: alendronate (FOSAMAX) 70 mg [...] T wave abnormality. Recommend follow up with microbiology coordinator. Nonspecific T-wave abnormality persisted after regadenoson injection. Correlate with MPI. Global left ventricular function is normal. Left ventricular ejection fraction is 59 %. Myocardial perfusion imaging is normal. Cardiac catheterization(s): Per cardiology note 10/06/23 (media): 06/2023 - [facility] No CAD PFT(s): N/A Vascular studies: N/A [...] Abel DO Authorized by: Eduard Abel DO [place] Protocol: RN Notified of Procedure: yes Informed [...] history of microvascular angina, apical variant HCM, [employer] DC-ICD (high degree HB) and AF [...] cochlear implant 2019); and Spine surgery (2016, 2017, 2018, 2019). Family Hx: family history includes [...] amiodarone, 0.5 mg/min, Last Rate: 0.5 mg/min (12/04/23 1626) norepinephrine, 0-2 mcg/kg/min, Last Rate: Stopped (12/04/23 1527) sodium chloride 0.9%, 3-12 mL/hr, Last Rate: 3 mL/hr (12/04/23 162) Objective Vital Signs: 24hr Min/Max: Temp Min: [...] Labs: Recent Labs Lab Units 12/03/23 2246 12/03/23210612/03/23 0353 12/02/23 1826 HEMOGLOBIN, POC g/dL 9.9* -- -- -- HEMOGLOBIN g/dL -- 10.2* 10.3* 11.3* HEMATOCRIT % -- 29.4* 30.6* 34.4* HEMATOCRIT POC % 30.0* -- -- -- WBC K/cumm -- 12.2* 11.4* 15.0* PLATELETS K/cumm -- 180 195 249 Recent Labs Lab Units 12/04/23 1133 12/03/23 21012/03/23 21012/03/23 1508 SODIUM mmol/L 137 -- 137 -- [...] up with her primary cardiologists (Dr. Talbert). After she is off vasopressors it is [...] 5PM or on weekends, please page the meter inspector emergency medicine nurse practitioner with any questions or concerns. Herson Read MD Automotive Designer 5:24 PM 12/04/23 Cosigned by Amaury Linn [...] in this encounter Nursing Notes * Marcelina Watt RN - 12/14/2023 4:50 PM CDT Patient discharging home with [facility] approved SOC 12/18. Spouse at bedside, reviewed [...] TLSO brace on & aligned, hospitality suite [id number], spouse transporting patient home. * Collette Jackson RN - 12/13/2023 2:59 PM CDT Patient c/o lower extremity edema with weeping to right lower extremity. Patient has GUILLE stockings and limbs were elevated. Patient's at the bedside and very concerned with the swelling and requested assessment from MD and also requested whether patient's Dishroom Attendant from [facility] (Dr. Talbert) could be included in her care. At 14:59 Ortho emergency medicine nurse practitioner MD Neo Young was notified;awaiting response. Update: [...] ACT RN cardioverted patient. Patient transferred to [facility] at 2150 with all belongings. * Lucille Love RN - 12/02/2023 7:00 PM CDT Per surgical team handoff patient needs 163 OU Called downstairs for patient's hearing aides. One hearing aid, cochlear implant box, and glasses brought. Called to waiting room and let them know only 1 hearing aid present. 1900-ICD turned on by [employer] to original settings. Per [employer] ICD only thing turned off for the case Reached out to surgical team. [place] going [place] [id number] due to bed availability Family brought some of patient's belongings to patient Patient left pacu with all of belongings that were in pacu. Hearing aid in right ear and cochlear implant in left ear. documented in this encounter Miscellaneous Notes * Plan of Care - Tr Russ RN - 12/14/2023 12:55 PM CDT Home Health referral reviewed; [facility] with [facility] SOC date 12/19/23 for SN PT OT. CM Alannah Paredes RN notified. Tr Russ RN-BSN Manager Of Pharmacy [facility] [phone] * Plan of Care - Alannah Paredes RN - 12/14/2023 11:57 AM CDT Patient's insurance denied inpatient rehab. Referral sent to SNF: [facility], and no responseyet this morning. Per DCA this morning, patient can likely discharge with home health. CM spoke with patient bedside, and patient stated that she is comfortable with home health. ECIN referral sent to [facility] Home health, CM will continue to follow. [facility] will accept, with a SOC 12/18. [...] -- Braces/Orthoses TLSO Donned for entire session -HC TLSO Donned prior to mobility. - Precaution [...] Bed - Dynamic Sitting-Level of Assistance Independent - Distant supervision - Dynamic Sitting-Comments -- Sup for safety - Dynamic Standing-Balance Support No upper extremity supported - Unilateral upper extremity supported - Dynamic Standing-Balance Lateral lean;Forward lean;Reaching for objects;Reaching across midline [facility];Forward lean;Reaching for objects;Reaching across midline - Dynamic Standing-Standing Surface Floor - Floor - Dynamic Standing-Level of Assistance Independent - Minimum assistance - Dynamic Standing-Comments -- Min A for balance and safety - ADLS (WDL) X -HC X -HC Grooming: Where assessed Standing at sink - Standing at sink - Grooming: Level of assistance Modified independent - Minimum Assist - Grooming: Assistance with Safety - Safety;Balance Set up for task, Min for balance -HC LE Dressing: Where assessed Sitting;Standing - Standing;Sitting - LE Dressing: Level of assistance Modified independent [facility] Minimum Assist -HC LE Dressing: Assistance with Requires assistive device for steadying;Use of adaptive equipment - Don/doff R sock;Don/doff L sock;Pull up over hips Min for task - LE Dressing: Equipment Utilized Settlement Clerk;Sock aid - -- Room Mobility: Where assessed To/from bathroom in Pt's room - To/from bathroom in Pt's room - Health Management: Equipment Walker - Walker - Room Mobility: Level of Assistance Modified Independent [facility] Minimum Assist - Room Mobility comment -- Min A for balance and safety - Bed Mobility No Pt found up in chair upon therapist arrival - No -HC Transfer Yes -HC Yes -HC Transfer From 1 Sit - Sit - Transfer Type 1 To and from - To and from -HC Transfer to 1 Stand - Stand - Technique 1 Stand to sit;Sit to stand - Sit to stand;Stand to sit - Transfer Device 1 Wheeled walker - Wheeled walker - Transfer Level of Assistance 1 Modified Independent [facility] Minimum Assist - Trials/Comments 1 Use of w/w - Min A for balance, force production, and safety - Toilet Transfer From -- Chair with arms - Toilet Transfer Type -- To and from - Toilet Transfer to -- Standard toilet - Toilet Transfer Technique -- Ambulating - Toilet Transfer: Equipment -- Wheeled walker - Toilet Transfers -- Minimal assistance - Toilet Transfers Comments -- Min A for force production and balance. -HC Arousal/Alertness Alert;Appropriate responses to stimuli - Alert;Appropriate responses to stimuli- Attention Span Appears intact -HC Appears intact [...] functional mobility;Decreased fine motor control;Decreased IADL independence -HC Decreased endurance;Decreased balance;Decreased ADL independence;Decreased gross motor control;Decreased functional mobility;Decreased fine motor control;Decreased IADL independence -HC Barriers to Discharge None -HC Current Mobility Status;Current ADL Status -HC Barrier Comments -- Fall risk -HC Plan If this is the last note, consider this the discharge summary;Discharge;Alter current plan -HCContinue with current plan;If this is the last note, consider this the discharge summary -HC Plan Comments D/C rec altered to reflect Pt current status -HC -- OT Recommendation Home with family -HC Inpatient Rehab Facility -HC Patient at high risk for -- Falls;Readmission;Injury due to reduced functional status;Injury due todecreased ability to care for self;Injury due to balance deficits -HC Recommend Inpatient Rehab/Acute Rehab due to -- [...] retraining;Endurance training;Functional activity;Functional transfer training;Functional mobility training - Progress during current admission Discontinue OT -HC Progressing toward goals - OT - Next Appointment -- 12/11/23 -HC OT - OK to Discharge Yes -HC No -HC OT Evaluation Complete Yes -HC -- User Khanna (r) = Recorded By, (t) = Taken By, (c) = Cosigned By Initials Name Effective Dates Maikel Gordon, OT 06/15/23 - OT Notes Notes from [...] TLSO could be donned prior to ambulation -VR cues to perform components of task, [...] cues to perform task; performed to don clam shell TLSO prior to mobility tasks -VR [...] Comments Other PT Comments Per discussion with SOFA INSPECTOR (Rajiv), patient has progressed sufficiently to discharge [...] for pseudoarthritis and adjacent segment disease post [id number] posterior fusion and decompression (12/02/2023) complicated by [...] plan and D/C from PT with [facility] Continue with current plan;If this is thelast [...] to home with family with Karina Quevedo DPT -CB Inpatient Rehab Facility -AB Inpatient Rehab Facility [...] functional status;Injury due to balance deficits;Prolonged dependence forself care tasks;Difficulty maintaining orthopedic restrictions -VR Recommend [...] Notified RNRustam Murdock -VR Repositioned;Elevated;RN Notified RN- Marlee -VR Cognition Arousal/Alertness Alert;Appropriate responses to stimuli [...] Bustillos, PT 06/27/19 - CB Rajiv Shi, SOFA INSPECTOR 08/09/20 - NF Karina Quevedo, PT 04/18/19 - Amy Diamond, PT 06/27/19 - PT Notes 12/13/2023 4:46 [...] needs will improve Recent Flowsheet Documentation Taken 12/14/2023 0930 by Marcelina Watt RN Understanding of discharge needs will improve: Discuss information regarding discharge instructions Problem: Medication Goal: Satisfaction with pain management medication regimen will improve Recent Flowsheet Documentation Taken 12/14/2023 0930 by Marcelina Watt RN Satisfaction with pain management medication regimen will improve: Evaluate medication effects Problem: Fall Risk Goal: Will remain free from falls Recent Flowsheet Documentation Taken 12/14/2023929 by Marcelina Watt RN Will remain free from falls: Implement fall prevention measures * Plan of Care - Kaylynn Armendariz RN - 12/14/2023 1:32 [...] hear back until Thursday at the earliest. Sonia Chung RN [facility] Teleprinter * Plan of Care - Collette Jackson RN - 12/13/2023 8:27 AM CDT Problem: Lack of Knowledge Goal: Ability to develop a pain control plan will improve Outcome: Progressing Flowsheets (Taken 12/13/2023799) Ability to develop a pain control plan will improve: Teach information regarding pain management Problem: Medication Goal: Satisfaction with pain management medication regimen will improve Outcome: Progressing Flowsheets (Taken 12/13/2023799) Satisfaction with pain management medication regimen will [...] integrity remains intact Outcome: Progressing Flowsheets (Taken 12/13/2023 08) Skin integrity remains intact: Assess and document risk factors for pressure injury development Goal: Incisions, wounds, or drain sites healing without S/S of infection Outcome: Progressing Flowsheets (Taken 12/13/2023 08) Incision(s), Wound(s) or Drain Site(s) healing without [...] 12/03/23 1050 No risk AP Intake/Output 12/09/23 07 - 12/10/23 0659 12/10/23 0700 - 12/11/23 0659 12/11/23 07 - 12/12/23 0659 Total Total [id number] [id number] Total Intake (ml) -- -- -- 200 [...] appropriate for ethnicity Color appropriate for ethnicity Red;[place] Sarah-wound Assessment Dry;Intact Dry;Intact Dry;Intact Dry;Intact Margins [...] 12/12/2023 07 Secondary Diagnosis 15 ............filed at 12/12/2023 07 Ambulatory Aids 15 ............filed at 12/12/2023 07 Intravenous Therapy/Heparin/Saline Lock 20 ............filed at 12/12/2023 07 Gait/Transferring 10 ............filed at 12/12/2023 07 Mental Status 0 ............filed at 12/12/2023 07 Franco Fall Risk Score 60 ............filed at 12/12/2023 07 Vital Signs 12/10 0700 12/11 0659 12/11 0700 12/11 0950 Most Recent Temp (??C) 36.3 - 36.8 36.3 36.3 (97.3) 12/11 729 Pulse 57 - 100 120 120 12/11 07 Resp - 18 17 17 12/11 0730 SpO2 (%) 93 [...] of Motion Interventions 12/11 0730 Active;All extremities 12/11 1999 Active;All extremities 12/10 0720 Active;All extremities Type of Device 12/11 1999 Compression stockings;Mechanical compression 12/09 2118 Mechanical compression 12/08 2037 Mechanical compression Anti-Embolism Site 12/11 1999 Bilateral Anti-Embolism Type 12/10 2000 Anti-embolism stockings, thigh Anti-Embolism Status 12/10 2000 On Mechanical Compression Site 12/10 2000 Bilateral 12/10 0800 Bilateral 12/09 2118 Bilateral 12/09 0748 Bilateral 05/15 2038 Bilateral Mechanical Compression Type 12/11 1999 IPC/SCD 12/10 08 IPC/SCD 12/09 2118 IPC/SCD 12/10 747 IPC/SCD 12/08 2037 IPC/SCD Mechanical Compression Status 12/11 1999 On 12/10 08 On 12/09 2118 On 12/10 747 On 12/08 2037 On , Meds and Admin Active Only All Meds/Most Recent Administrations acetaminophen (TYLENOL) tablet 1,000 mg [[id number]] Ordering Provider: Jeremy Michelle MD Status: Completed (Past End Date/Time) Ordered On: 12/02/23 07 Starts/Ends: 12/02/23 0800 - 12/02/23 0749 Ordered Dose (Remaining/Total): 1,000 mg (0/1) Route: oral Frequency: Once Ordered Rate/Order Duration: -- / -- Timestamps Action Dose Route Other Information 12/02/23 0749 Given 1,000 mg oral Performed by: Dalia Betts RN Scanned Package: 2327-4115-63, 4793-0455-04 potassium chloride 40 mEq/520 mL in sodium chloride 0.9% (premix) 40 mEq [[id number]] Ordering Provider: Tee Carver Status: Completed (Past End Date/Time) Ordered On: 12/02/23 131 Starts/Ends: 12/02/23 1400 - 12/02/23 1726 Ordered Dose (Remaining/Total): 40 mEq (0/1) Route: intravenous Frequency: Once Ordered Rate/Order Duration: 130 mL/hr / 4 Hours Timestamps Action Dose / Duration Route Other Information 12/02/23 1326 Given 40 mEq 240 Minutes intravenous Performed by: Tee Carver fluticasone propionate (FLONASE) 50 mcg/actuation nasal spray 1 spray [[id number]] Ordering Provider: Chinyere Abreu NP Status: Dispensed Ordered On: 12/02/232018 Start: 12/02/232018 Ordered Dose (Remaining/Total): 1 spray (--/--) Route: each nostril Frequency: As needed Ordered Rate/Order Duration: -- / -- (No admins scheduled or recorded for this medication) DULoxetine DR (CYMBALTA) extended release capsule 60 mg [[id number]] Ordering Provider: Chinyere Abreu NP Status: Dispensed [...] Performed by: Collette Jackson RN Scanned Package: 98704-746-88 alendronate (FOSAMAX) weekly tablet 70 mg [[id number]] Ordering Provider: Chinyere Abreu NP Status: Dispensed [...] irritation). Timestamps Action Dose Route Other Information 12/06/232229 Given 70 mg oral Performed by: Kathleen Min RN Scanned Package: [id number] cholecalciferol (VITAMIN D-3) capsule 2,000 Units [[id number]] Ordering Provider: Chinyere Abreu NP Status: Dispensed Ordered On: 12/02/232018 Start: 12/03/23 0900 Ordered Dose (Remaining/Total): 2,000 Units (--/--) Route: oral Frequency: Every morning Ordered Rate/Order Duration: -- / -- Admin Instructions: Each capsule contains 1,000 units (25 mcg) of cholecalciferol. Timestamps Action Dose Route Other Information 12/12/23 0829 Given 2,000 Units oral Performed by: Collette Jackson RN Scanned Package: [id number], [id number] sodium chloride 0.9% flush 0.5-20 mL [[id number]] Ordering Provider: Chinyere Abreu NP Status: Verified Ordered On: 12/02/232018 Start: 12/02/232199 Ordered Dose (Remaining/Total): 0.5-20 mL (--/--) Route: intra-catheter Frequency: Every 8 hours scheduled Ordered Rate/Order Duration: -- / -- Admin Instructions: Flush volume based on line type and size. Timestamps Action Dose Route Other Information 12/11/232139 Given 10 mL intra-catheter Performed by: Kaylynn Armendariz RN Scanned Package: [id number] sodium chloride 0.9% flush 0.5-20 mL [[id number]] Ordering Provider: Chinyere Abreu NP Status: Verified Ordered On: 12/02/232018 Start: 12/02/232018 Ordered Dose (Remaining/Total): 0.5-20 mL (--/--) Route: intra-catheter Frequency: As needed Ordered Rate/Order Duration: -- / -- Admin Instructions: Flush volume based on line type and size. Flush before and after each use. (No admins scheduled or recorded for this medication) Carrier Fluids for Secondary Infusion - 0.9% Sodium Chloride [[id number]] Ordering Provider: Chinyere Abreu NP Status: Dispensed [...] Given 30 mL intravenous Performed by: Mariana Peteresn RN ondansetron (ZOFRAN) injection 4 mg [[id number]] Ordering Provider: Chinyere Abreu NP Status: Dispensed [...] Performed by: Marlee Roche RN Scanned Package: [address]-8 prochlorperazine (COMPAZINE) injection 5 mg [[id number]] Ordering Provider: Chinyere Abreu NP Status: Verified Ordered On: 12/02/232018 Start: 12/02/232018 Ordered Dose (Remaining/Total): 5 mg (--/--) Route: intravenous Frequency: Every 6 hours PRN Ordered Rate/Order Duration: -- / 2 Minutes Admin Instructions: If not relieved by ondansetron within 30 minutes. (No admins scheduled or recorded for this medication) senna-docusate (PERICOLACE) 8.6-50 mg per tablet 2 tablet [[id number]] Ordering Provider: Chinyere Abreu NP Status: Dispensed Ordered On: 12/02/232018 Start: 12/02/232099 Ordered Dose (Remaining/Total): 2 tablet (--/--) Route: oral Frequency: 2 times daily Ordered Rate/Order Duration: -- / -- Admin Instructions: Hold for diarrhea. Timestamps Action Dose Route Other Information 12/12/23 0829 Given 2 tablet oral Performed by: Collette Jackson RN Scanned Package: 4255-4323-59, 3152-4649-54 bisacodyL (DULCOLAX) suppository 10 mg [[id number]] Ordering Provider: Chinyere Abreu NP Status: Dispensed Ordered On: 12/02/232018 Start: 12/02/232099 Ordered Dose (Remaining/Total): 10 mg (--/--) Route: rectal Frequency: Daily Ordered Rate/Order Duration: -- / -- Admin Instructions: Hold for diarrhea Timestamps Action Dose Route Other Information 12/05/23 0841 Given 10 mg rectal Performed by: Joey Velasquez RN Scanned Package: 0708-2303-41 magnesium hydroxide (MILK OF MAGNESIA) 80 mg/mL (33.3 mg/mL as elemental magnesium) oral mL [[id number]] Ordering Provider: Chinyere Abreu NP Status: Verified Ordered On: 12/02/232018 Start: 12/02/232018 Ordered Dose (Remaining/Total): 30 mL (--/--) Route: oral Frequency: Daily PRN Ordered Rate/Order Duration: -- / -- (No admins scheduled or recorded for this medication) bisacodyl EC (DULCOLAX EC) tablet 10 mg [[id number]] Ordering Provider: Chinyere Abreu NP Status: Dispensed Ordered On: 12/02/232018 Start: 12/02/232018 Ordered Dose (Remaining/Total): 10 mg (--/--) Route: oral Frequency: Daily PRN Ordered Rate/Order Duration: -- / -- Admin Instructions: Do not crush, chew, cut, dissolve, open or otherwise manipulate tablet/capsule. (No admins scheduled or recorded for this medication) mineral oil (FLEET MINERAL OIL) enema 133 mL [[id number]] Ordering Provider: Chinyere Abreu NP Status: Dispensed Ordered On: 12/02/232018 Start: 12/02/232018 Ordered Dose (Remaining/Total): 1 enema (--/--) Route: rectal Frequency: Daily PRN Ordered Rate/Order Duration: -- / -- (No admins scheduled or recorded for this medication) multivitamin with folic acid 400 mcg tablet 1 tablet [[id number]] Ordering Provider: Chinyere Abreu NP Status: Dispensed Ordered On: 12/02/232018 Start: 12/02/232099 Ordered Dose (Remaining/Total): 1 tablet (--/--) Route: oral Frequency: Daily Ordered Rate/Order Duration: -- / -- Timestamps Action Dose Route Other Information 12/12/23 0828 Given 1 tablet oral Performed by: Collette Jackson RN Scanned Package: [id number] ceFAZolin (ANCEF) 1 gram/10 mL in sterile water (premix) 1,000 mg [[id number]] Ordering Provider: Latisha Retana NP Status: Completed (Past End Date/Time) Ordered On: 12/02/232018 Starts/Ends: 12/02/232199 - 12/03/23 1508 Ordered Dose (Remaining/Total): 1,000 mg (0/3) Route: intravenous Frequency: Every 8 hours Ordered Rate/Order Duration: 200 mL/hr / 3 Minutes Admin Instructions: Beginning 8 hours after last sarah-procedural dose. Line Med Link Info Comment Peripheral IV 12/02/23 18 G Right Hand 12/02/232229 by Latisha Robles RN -- Timestamps Action Dose / Rate / Duration Route Other Information 12/03/23 150 Given 1,000 mg 200 mL/hr 3 Minutes intravenous Performed by: Michelle Johnston RN vancomycin 1,000 mg/200 mL in dextrose 5% (premix) 1,000 mg [[id number]] Ordering Provider: Latisha Retana NP Status: Completed [...] Action Dose / Duration Route Other Information 12/02/232233 New Bag 1,000 mg 60 Minutes intravenous Performed by: Latisha Robles RN pantoprazole DR (PROTONIX) extended release tablet 40 mg [[id number]] Ordering Provider: Chinyere Abreu NP Status: Dispensed Ordered On: 12/02/232018 Start: 12/03/23 0900 Ordered Dose (Remaining/Total): 40 mg (--/--) Route: oral Frequency: Daily Ordered Rate/Order Duration: -- / -- Admin Instructions: Do not crush, chew, cut, dissolve, open or otherwise manipulate tablet/capsule. Timestamps Action Dose Route Other Information 12/12/23 0829 Given 40 mg oral Performed by: Collette Jackson RN Scanned Package: 58042-473-21 furosemide (LASIX) tablet 20 mg [[id number]] Ordering Provider: Dalia Muhammad NP Status: Completed (Past End Date/Time) Ordered On: 12/03/23 1456 Starts/Ends: 12/03/23 1530 - 12/03/23 1505 Ordered Dose (Remaining/Total): 20 mg (0/1) Route: oral Frequency: Once Ordered Rate/Order Duration: -- / -- Timestamps Action Dose Route Other Information 12/03/23 1505 Given 20 mg oral Performed by: Michelle Johnston RN Scanned Package: 43550-044-63 HYDROmorphone (DILAUDID) injection 0.2 mg [[id number]] Ordering Provider: Yarely Carrera MD Status: Completed (Past End Date/Time) Ordered On: 12/03/231833 Starts/Ends: 12/03/231914 - 12/03/231841 Ordered Dose (Remaining/Total): 0.2 mg (0/1) Route: intravenous Frequency: Once Ordered Rate/Order Duration: -- / 2 Minutes Timestamps Action Dose / Duration Route Other Information 12/03/23 184 Given 0.2 mg 2 Minutes intravenous Performed by: Michelle Johnston RN Scanned Package: 65635-974-02 ketorolac (TORADOL) 15 mg/mL injection 15 mg [[id number]] Ordering Provider: Jacqueline Burgos MD Status: Completed (Past End Date/Time) Ordered On: 12/03/231923 Starts/Ends: 12/03/231999 - 12/03/232030 Ordered Dose (Remaining/Total): 15 mg (0/1) Route: intravenous Frequency: Once Ordered Rate/Order Duration: -- / -- Admin Instructions: For Adult IV push, administer over 15 seconds Timestamps Action Dose Route Other Information 12/03/232030 Given 15 mg intravenous Performed by: Claudia Jerez RN Scanned Package: 85195-530-36 magnesium sulfate 2 g/50 mL in water (premix) 2 g [[id number]] Ordering Provider: Janet Genao MD Status: Completed (Past End Date/Time) Ordered On: 12/03/232048 Starts/Ends: 12/03/232129 - 12/03/232156 Ordered Dose (Remaining/Total): 2 g (0/1) Route: intravenous Frequency: Once Ordered Rate/Order Duration: -- / 60 Minutes Timestamps Action Dose / Duration Route Other Information 12/03/232056 New Bag 2 g 60 Minutes intravenous Performed by: Mariana Petersen RN aspirin tablet 325 mg [[id number]] Ordering Provider: Florinda Ayoub MD Status: Completed (Past End Date/Time) Ordered On: 12/03/232107 Starts/Ends: 12/03/232144 - 12/03/232113 Ordered Dose (Remaining/Total): 325 mg (0/1) Route: oral Frequency: Once Ordered Rate/Order Duration: -- / -- Timestamps Action Dose Route Other Information 12/03/232113 Given 325 mg oral Performed by: Claudia Jerez RN HYDROmorphone (DILAUDID) injection 0.5 mg [[id number]] Ordering Provider: Florinda Ayoub MD Status: Completed (Past End Date/Time) Ordered On: 12/03/232120 Starts/Ends: 12/03/232199 - 12/03/232135 Ordered Dose (Remaining/Total): 0.5 mg (0/1) Route: intravenous Frequency: Once Ordered Rate/Order Duration: -- / 2 Minutes Timestamps Action Dose / Duration Route Other Information 12/03/232133 Given 0.5 mg 2 Minutes intravenous Performed by: Claudia Jerez RN Comments: ACT, given 1/2 before shock and the rest after amiodarone (NEXTERONE) 150 mg/100 mL (1.5 mg/mL) in dextrose (premix) 150 mg [[id number]] Ordering Provider: Florinda Ayoub MD Status: Completed [...] 360 mg/200 mL (1.8 mg/mL) infusion (premix) [[id number]] Ordering Provider: Florinda Ayoub MD Status: Verified [...] 360 mg/200 mL (1.8 mg/mL) infusion (premix) [[id number]] Ordering Provider: Florinda Ayoub MD Status: Dispensed [...] Sheth RN LORazepam (ATIVAN) injection 2 mg [[id number]] Ordering Provider: Florinda Ayoub MD Status: Completed [...] g/50 mL in water (premix) 2 g [[id number]] Ordering Provider: Juanito Sanchez NP Status: Completed [...] in sodium chloride 0.9% 100 mL IVPB [[id number]] Ordering Provider: Juanito Sanchez NP Status: Completed (Past End Date/Time) Ordered On: 12/03/232208 Starts/Ends: 12/03/232244 - 12/04/23 0028 Ordered Dose (Remaining/Total): 3 g (0/1) Route: intravenous Frequency: Once Ordered Rate/Order Duration: 130 mL/hr / 60 Minutes Timestamps Action Dose / Rate / Duration Route Other Information 12/03/232327 New Bag 3 g 130 mL/hr 60 Minutes intravenous Performed by: Skyla Domingo RN sodium chloride 0.9% bolus 500 mL [[id number]] Ordering Provider: Juanito Sanchez NP Status: Completed (Past End Date/Time) Ordered On: 12/03/232227 Starts/Ends: 12/03/232299 - 12/03/232236 Ordered Dose (Remaining/Total): 500 mL (0/1) Route: intravenous Frequency: Once Ordered Rate/Order Duration: -- / -- Timestamps Action Dose Route Other Information 12/03/232236 New Bag 500 mL intravenous Performed by: Skyla Domingo RN Scanned Package: [id number] Lactated Ringer's (LR) bolus 1,000 mL [[id number]] Ordering Provider: Juanito Sanchez NP Status: Completed (Past End Date/Time) Ordered On: 12/03/232231 Starts/Ends: 12/03/232314 - 12/03/232236 Ordered Dose (Remaining/Total): 1,000 mL (0/1) Route: intravenous Frequency: Once Ordered Rate/Order Duration: -- / -- Timestamps Action Dose Route Other Information 12/03/232236 New Bag 1,000 mL intravenous Performed by: Skyla Domingo RN potassium chloride 40 mEq/520 mL in sodium chloride 0.9% (premix) 40 mEq [[id number]] Ordering Provider: Juanito Sanchez NP Status: Completed (Past End Date/Time) Ordered On: 12/03/232254 Starts/Ends: 12/03/232329 - 12/04/23 0328 Ordered Dose (Remaining/Total): 40 mEq (0/1) Route: intravenous Frequency: Once Ordered Rate/Order Duration: 130 mL/hr / 4 Hours Timestamps Action Dose / Rate / Duration Route Other Information 12/03/232327 New Bag 40 mEq 130 mL/hr 4 Hours intravenous Performed by: Skyla Domingo RN HYDROmorphone (DILAUDID) injection 0.2 mg [[id number]] Ordering Provider: Lavon Longo MD Status: Completed (Past End Date/Time) Ordered On: 12/04/23 1154 Starts/Ends: 12/04/23 1230 - 12/04/23 1202 Ordered Dose (Remaining/Total): 0.2 mg (0/1) Route: intravenous Frequency: Once Ordered Rate/Order Duration: -- / 2 Minutes Timestamps Action Dose / Duration Route Other Information 12/04/23 1200 Given 0.2 mg 2 Minutes intravenous Performed by: Juanito Renteria RN Scanned Package: 08897-799-97 perflutren protein-a (OPTISON) 3 mL in sodium chloride 0.9% 8 mL syringe [[id number]] Ordering Provider: Jeremy Michelle MD Status: Completed (Past End Date/Time) Ordered On: 12/04/23 134 Starts/Ends: 12/04/23 1347 - 12/04/23 1548 Ordered Dose (Remaining/Total): 1-8 mL (0/1) Route: intravenous Frequency: Once in imaging Ordered Rate/Order Duration: -- / -- Timestamps Action Dose Route Other Information 12/04/23 154 Given by Other 3 mL intravenous Performed by: Johnathan Diez RDCS potassium, sodium phosphates (PHOS-NAK) 280-160-250 mg packet 2 packet [[id number]] Ordering Provider: Len Klein PA Status: Completed (Past End Date/Time) Ordered On: 12/04/23 134 Starts/Ends: 12/04/23 1430 - 12/04/23 1525 Ordered [...] Performed by: Juanito Renteria RN Scanned Package: [id number], [id number] enoxaparin (LOVENOX) syringe 40 mg [[id number]] Ordering Provider: Chinyere Abreu NP Status: Dispensed Ordered On: 12/04/231926 Start: 12/04/23 2100 Ordered Dose (Remaining/Total): 40 mg (--/--) Route: subcutaneous Frequency: Daily (for enoxaparin) Ordered Rate/Order Duration: -- / -- Timestamps Action Dose Route / Site Other Information 12/11/232137 Given 40 mg subcutaneous Left Lower Abdomen Performed by: Kaylynn Armendariz RN Scanned Package: 53248-972-16 acetaminophen (TYLENOL) tablet 1,000 mg [[id number]] Ordering Provider: Chinyere Abreu NP Status: Dispensed Ordered On: 12/04/231950 Start: 12/04/232029 Ordered Dose (Remaining/Total): 1,000 mg (--/--) Route: oral Frequency: Every 6 hours scheduled Ordered Rate/Order Duration: -- / -- Timestamps Action Dose Route Other Information 12/12/23827 Given 1,000 mg oral Performed by: Collette Jackson RN Scanned Package: 8601-6417-68, 0972-5782-68 amiodarone (NEXTERONE) 150 mg/100 mL (1.5 mg/mL) in dextrose (premix) 150 mg [[id number]] Ordering Provider: Chinyere Abreu NP Status: Completed [...] Performed by: Giselle Sheth RN Scanned Package: [id number] amiodarone (NEXTERONE) 150 mg/100 mL (1.5 mg/mL) in dextrose (premix) 150 mg [[id number]] Ordering Provider: Chinyere Abreu NP Status: Completed [...] 360 mg/200 mL (1.8 mg/mL) infusion (premix) [[id number]] Ordering Provider: Chinyere Abreu NP Status: Dispensed [...] 360 mg/200 mL (1.8 mg/mL) infusion (premix) [[id number]] Ordering Provider: Chinyere Abreu NP Status: Dispensed [...] Performed by: Delicia Clay RN Scanned Package: 12898-628-38 magnesium sulfate 4 g/100 mL in water (premix) 4 g [[id number]] Ordering Provider: Chinyere Abreu NP Status: Completed (Past End Date/Time) Ordered On: 12/04/232207 Starts/Ends: 12/04/232244 - 12/05/23 0007 Ordered Dose (Remaining/Total): 4 g (0/1) Route: intravenous Frequency: Once Ordered Rate/Order Duration: -- / 90 Minutes Timestamps Action Dose / Duration Route Other Information 12/04/232236 New Bag 4 g 90 Minutes intravenous Performed by: Giselle Sheth RN Scanned Package: 90922-577-08 potassium phosphates 30 mmol in sodium chloride 0.9% 500 mL IVPB [[id number]] Ordering Provider: Chinyere Abreu NP Status: Completed (Past End Date/Time) Ordered On: 12/04/232228 Starts/Ends: 12/04/232299 - 12/05/23 0509 Ordered Dose (Remaining/Total): 30 mmol (0/1) Route: [...] RN potassium chloride (KLOR-CON) packet 40 mEq [[id number]] Ordering Provider: Len lKein PA Status: Completed (Past End Date/Time) Ordered On: 12/05/23817 Starts/Ends: 12/05/23 09 - 12/05/23 1210 Ordered Dose (Remaining/Total): 40 [...] Performed by: Joey Velasquez RN Scanned Package: 16656-655-21, 18239-022-90 calcium gluconate 3 g in sodium chloride 0.9% 100 mL IVPB [[id number]] Ordering Provider: Len Klein PA Status: Completed (Past End Date/Time) Ordered On: 12/05/23 0818 Starts/Ends: 12/05/23 0900 - 12/05/23 1038 Ordered Dose (Remaining/Total): 3 [...] RN Lactated Ringer's (LR) bolus 500 mL [[id number]] Ordering Provider: Len Klein PA Status: Completed (Past End Date/Time) Ordered On: 12/05/23 1145 Starts/Ends: 12/05/23 1230 - 12/05/23 1210 Ordered Dose (Remaining/Total): 500 mL (0/1) Route: intravenous Frequency: Once Ordered Rate/Order Duration: -- / -- Line Med Link Info Comment Peripheral IV 12/03/23 18 G Anterior;Distal;Left;Upper Arm 12/05/23 1210 by Joey eVlasquez RN -- Timestamps Action Dose Route Other Information 12/05/23 1210 New Bag 500 mL intravenous Performed by: Joey Velasquez RN Scanned Package: 3003-1456-40 magnesium sulfate 2 g/50 mL in water (premix) 2 g [[id number]] Ordering Provider: Rika Ramos MD Status: Completed (Past End Date/Time) Ordered On: 12/05/23 1235 Starts/Ends: 12/05/23 1315 - 12/05/23 1416 Ordered Dose (Remaining/Total): 2 g (0/1) Route: intravenous Frequency: Once Ordered Rate/Order Duration: -- / 60 Minutes Line Med Link Info Comment Peripheral IV 12/03/23 18 G Anterior;Distal;Left;Upper Arm 12/05/23 131 by Joey Velasquez RN -- Timestamps Action Dose / Duration Route Other Information 12/05/23 131 New Bag 2 g 60 Minutes intravenous Performed by: Joey Velasquez RN Scanned Package: 39382-536-49 potassium chloride (KLOR-CON) packet 20 mEq [[id number]] Ordering Provider: Chinyere Abreu NP Status: Completed [...] Performed by: Delicia Clay RN Scanned Package: 58935-142-11 potassium chloride 20 mEq/260 mL in sodium chloride 0.9% (premix) 20 mEq [[id number]] Ordering Provider: Chinyere Abreu NP Status: Completed (Past End Date/Time) Ordered On: 12/05/232034 Starts/Ends: 12/05/232114 - 12/05/232340 Ordered Dose (Remaining/Total): 20 mEq (0/1) Route: intravenous Frequency: Once Ordered Rate/Order Duration: -- / 2 Hours Timestamps Action Dose / Duration Route Other Information 12/05/232140 New Bag 20 mEq 2 Hours intravenous Performed by: Delicia Clay RN lidocaine (ASPERCREME) 4 % patch 2 patch [[id number]] Ordering Provider: Chinyere Abreu NP Status: Dispensed Ordered On: 12/06/23 0804 Start: 12/06/23 0900 Ordered Dose (Remaining/Total): 2 patch (--/--) Route: transdermal Frequency: Daily Ordered Rate/Order Duration: -- / 12 Hours Question Answer Comment Apply to affected area:: back -- Timestamps Action Dose / Duration Route / Site Other Information 12/11/23 0851 Medication Applied 2 patch 12 Hours transdermal Back Performed by: Collette Jackson RN Scanned Package: 1793-2147-64, 2418-4959-66 magnesium sulfate 2 g/50 mL in water (premix) 2 g [[id number]] Ordering Provider: Rika Solano NP Status: Completed (Past End Date/Time) Ordered On: 12/06/23827 Starts/Ends: 12/06/23899 - 12/06/23 105 Ordered Dose (Remaining/Total): 2 g (0/1) Route: intravenous Frequency: Once Ordered Rate/Order Duration: -- / 60 Minutes Line Med Link Info Comment Peripheral IV 12/03/23 18 G Anterior;Distal;Left;Upper Arm 12/06/23951 by Joey Velasquez RN -- Timestamps Action Dose / Duration Route Other Information 12/06/23951 New Bag 2 g 60 Minutes intravenous Performed by: Joey Velasquez RN Scanned Package: 56981-923-45 simethicone (MYLICON) chewable tablet 80 mg [[id number]] Ordering Provider: Chinyere Abreu NP Status: Dispensed Ordered On: 12/06/231941 Start: 12/06/231940 Ordered Dose (Remaining/Total): 80 mg (--/--) Route: oral Frequency: Every 8 hours PRN Ordered Rate/Order Duration: -- / -- Timestamps Action Dose Route Other Information 12/06/232229 Given 80 mg oral Performed by: Kathleen Min RN Scanned Package: 27000-787-19 calcium gluconate 3 g in sodium chloride 0.9% 100 mL IVPB [[id number]] Ordering Provider: Chinyere Abreu NP Status: Completed [...] (1.5 mg/mL) in dextrose (premix) 150 mg [[id number]] Ordering Provider: Chinyere Abreu NP Status: Completed (Past End Date/Time) Ordered On: 12/07/2358 Starts/Ends: 12/07/23129 - 12/07/23111 Ordered Dose (Remaining/Total): 150 mg (0/1) Route: intravenous Frequency: Once Ordered Rate/Order Duration: 600 mL/hr / 10 Minutes Admin Instructions: Use filter 0.22 micron or less Timestamps Action Dose / Rate / Duration Route Other Information 12/07/23101 New Bag 150 mg 600 mL/hr 10 Minutes intravenous Performed by: Kathleen Min RN Scanned Package: 57366-812-35 magnesium sulfate 2 g/50 mL in water (premix) 2 g [[id number]] Ordering Provider: Chinyere Abreu NP Status: Completed (Past End Date/Time) Ordered On: 12/07/2358 Starts/Ends: 12/07/23129 - 12/07/23201 Ordered Dose (Remaining/Total): 2 g (0/1) Route: intravenous Frequency: Once Ordered Rate/Order Duration: -- / 60 Minutes Timestamps Action Dose / Duration Route Other Information 12/07/23101 New Bag 2 g 60 Minutes intravenous Performed by: Kathleen Min RN Scanned Package: 84469-581-45 oxyCODONE (ROXICODONE) tablet 7.5 mg [[id number]] Ordering Provider: Chinyere Abreu NP Status: Dispensed Ordered On: 12/07/23241 Start: 12/07/23241 Ordered Dose (Remaining/Total): 7.5 mg (--/--) Route: oral Frequency: Every 3 hours PRN Ordered Rate/Order Duration: -- / -- Timestamps Action Dose Route Other Information 12/12/23 0653 Given 7.5 mg oral Performed by: Kaylynn Armendariz RN methocarbamoL (ROBAXIN) tablet 750 mg [[id number]] Ordering Provider: Chinyere Abreu NP Status: Dispensed Ordered On: 12/07/23 0740 Start: 12/07/23 0845 Ordered Dose (Remaining/Total): 750 mg (--/--) Route: oral Frequency: Every 8 hours Ordered Rate/Order Duration: -- / -- Timestamps Action Dose Route Other Information 12/12/23 0829 Given 750 mg oral Performed by: Collette Jackson RN Scanned Package: 46849-861-04 amiodarone (PACERONE) tablet 400 mg [[id number]] Ordering Provider: Chinyere Abreu NP Status: Dispensed (Past End Date/Time) Ordered On: 12/07/23810 Starts/Ends: 12/07/23 09 - 12/12/23 0859 Ordered Dose (Remaining/Total): 400 mg (08/10) Route: oral Frequency: 3 times daily Ordered Rate/Order Duration: -- / -- Timestamps Action Dose Route Other Information 12/11/23 213 Given 400 mg oral Performed by: Kaylynn Armendariz RN Scanned Package: 14642-141-84, 25197-238-50 amiodarone (PACERONE) tablet 400 mg [[id number]] Ordering Provider: Chinyere Abreu NP Status: Dispensed Ordered On: 12/07/23810 Starts/Ends: 12/12/23 09 - 12/15/23 0859 Ordered Dose (Remaining/Total): 400 mg (11/29) Route: oral Frequency: 2 times daily Ordered Rate/Order Duration: -- / -- Timestamps Action Dose Route Other Information 12/12/23 0831 Given 400 mg oral Performed by: Collette Jackson RN Scanned Package: 49294-381-67, 93880-277-76 amiodarone (PACERONE) tablet 200 mg [[id number]] Ordering Provider: Chinyere Abreu NP Status: Dispensed Ordered On: 12/07/23810 Start: 12/15/23 0900 Ordered Dose (Remaining/Total): 200 mg (--/--) Route: oral Frequency: Daily Ordered Rate/Order Duration: -- / -- (No admins scheduled or recorded for this medication) atorvastatin (LIPITOR) tablet 40 mg [[id number]] Ordering Provider: Chinyere Abreu NP Status: Dispensed Ordered On: 12/07/23810 Start: 12/07/232099 Ordered Dose (Remaining/Total): 40 mg (--/--) Route: oral Frequency: Nightly Ordered Rate/Order Duration: -- / -- Timestamps Action Dose Route Other Information 12/11/232138 Given 40 mg oral Performed by: Kaylynn Armendariz RN Scanned Package: 33353-394-98 ramelteon (ROZEREM) tablet 8 mg [[id number]] Ordering Provider: Chinyere Abreu NP Status: Dispensed Ordered On: 12/07/23810 Start: 12/07/232099 Ordered Dose (Remaining/Total): 8 mg (--/--) Route: oral Frequency: Nightly Ordered Rate/Order Duration: -- / -- Timestamps Action Dose Route Other Information 12/11/232138 Given 8 mg oral Performed by: Kaylynn Armendariz RN Scanned Package: [id number] Lactated Ringer's (LR) bolus 1,000 mL [[id number]] Ordering Provider: Angel Miramontes MD Status: Completed [...] Performed by: Alana Guerrero RN Scanned Package: 0468-3280-37 metoprolol tartrate (LOPRESSOR) immediate release tablet 25 mg [[id number]] Ordering Provider: Gabriel Harmon NP Status: Dispensed Ordered On: 12/08/23 1316 Start: 12/09/23 0900 Ordered Dose (Remaining/Total): 25 mg (--/--) Route: oral Frequency: 2 times daily Ordered Rate/Order Duration: -- / -- Timestamps Action Dose Route Other Information 12/12/23 0829 Given 25 mg oral Performed by: Collette Jackson RN Scanned Package: 26821-138-36 furosemide (LASIX) tablet 40 mg [[id number]] Ordering Provider: Opal Whitney NP Status: Dispensed Ordered On: 12/09/23 1123 Start: 12/09/23 1200 Ordered Dose (Remaining/Total): 40 mg (--/--) Route: oral Frequency: 2 times daily (for diuretics) Ordered Rate/Order Duration: -- / -- Timestamps Action Dose Route Other Information 12/12/23 0826 Given 40 mg oral Performed by: Collette Jackson RN Scanned Package: 87475-090-65 , OT Eval and Treat Last Documented [...] IRF but approved for SNF. Patient requesting: [facility] --referral sent in [facility] 12/11 and is pending acceptance Support following discharge: katalina Dorsey ([phone]) Transportation: [facility] to be scheduled by CM at ct Plan for weekend discharge: For weekend discharge: [...] assistance, please check the treatment team in [facility] for the assigned case management rn or contact the weekend Case Management phone * Plan of Care - Collette Jackson RN - 12/12/2023 7:17 AM CDT Problem: Lack of Knowledge Goal: Ability to develop a pain control plan will improve Outcome: Progressing Flowsheets (Taken 12/12/2023 0714) Ability to develop a pain control plan will improve: Teach information regarding pain management Problem: Medication Goal: Satisfaction with pain management medication regimen will improve Outcome: Progressing Flowsheets (Taken 12/12/2023 0714) Satisfaction with pain management medication regimen will [...] in place and implemented. * Plan of Care - Dina Ramos RN - 12/11/2023 12:26 PM CDT Per Medical Chart/Rounds/IDR: Patient is medically ready for discharge to IRF ADD: pending P2P 12/10 Plan & referrals made/in place: IRF: [facility] (P:[phone]) -accepted, auth started 12/07, P2P requested 12/10 by 1630 to [phone]. [employer] notified. Facility contact: Heather Duran (P: [phone]) Weekend contact: Lizzy (P: [phone]) Support following discharge: spouse Sunita ([phone]) Transportation: [facility] to be scheduled by CM at ct Plan for weekend discharge: For weekend discharge, follow up with facility regarding outcome of peer to peer. If insurance auth approved, contact Lizzy ([phone]) regarding bed availability, room number, and report [...] assistance, please check the treatment team in [facility] for the assigned case management rn or contact the weekend Case Management phone * Plan of Care - Collette Jackson RN - 12/11/2023 9:59 AM CDT Problem: Lack of Knowledge Goal: Ability to develop a pain control plan will improve Outcome: Progressing Problem: Medication Goal: Satisfaction with pain management medication regimen will improve Outcome: Progressing Problem: Neurosensory Goal: Achieves stable or improved neurological status Outcome: Progressing Flowsheets (Taken 12/11/2023899) Achieves Stable or Improved Neurological Status: Assess for and report changes in neurological status Goal: Achieves maximal functionality and self care Outcome: Progressing Flowsheets (Taken 12/11/2023899) Achieves maximal functionality and self care: Encourage [...] adequate nutritional intake Outcome: Progressing Flowsheets (Taken 12/11/2023 0900) Maintains adequate nutritional intake: Monitor I&O, weight [...] auth Plan & referrals made/in place: IRF: [facility] (P:[phone]) -accepted, auth started 12/07 (pending) CM reached out to IRF dariensionHeather (P: [phone]) who stated insurance auth is stillpending. Support following discharge: spouse Sunita ([phone]) Transportation: [facility] to be scheduled by CM at ct Patient's Identified Problem/Goal Problem: Ensure acute medical needs are met and that patient has a safe discharge plan. Goal: Secure a discharge plan that patient/family are agreeable with and ensure patient has continuum of care. Patient and/or family are agreeable with plan. catering service manager will continue to follow and assist with discharge planning as needed. If any further discharge needs arise, please contact the covering case management rn. * Plan of Care - Alannah Paredes RN - 12/09/2023 1:23 PM CDT Per Medical Chart/Rounds/IDR: not medically ready-needs to be off IV pain meds for 24 hours prior to discharge ADD: 12/09 Plan & referrals made/in place: [facility] and started insurance auth yesterday. catering service manager reached out to clinical liasion, Heather Duran at [phone] and auth is still pending. Support following discharge: Transportation: EMS to be scheduled Patient's Identified Problem/Goal Problem: Ensure acute medical needs are met and that patient has a safe discharge plan. Goal: Secure a discharge plan that patient/family are agreeable with and ensure patient has continuum of care. Patient and/or family are agreeable with plan. catering service manager will continue to follow and assist with discharge planning as needed. If any further discharge needs arise, please contact the covering case management rn. * Plan of Care - Collette Jackson [...] Flowsheets (Taken 12/07/2023 1455 by Jeannie Genao RN) Understanding of discharge needs will improve: Discuss information regarding discharge instructions Identify discharge barriers Identify discharge learning needs (meds, wound care, etc.) Problem: Lack of Knowledge Goal: Ability to develop a pain control plan will improve Outcome: Progressing Flowsheets (Taken 12/07/2023 1455 by Jeannie Genao RN) Ability to develop a pain control plan [...] until she follows up with her primary microbiology coordinator Continue metoprolol tartrate 25mg BID Hold home [...] of discharge regarding a follow-up appointment with [facility], please contact our office at . Thank you for involving us in the care of this patient. If you have any additional questions or concerns during this admission, please contact the respective cardiology consult team listed on [employer] OR, from Thursday-Thursday, 7:30 am - 4:30 [...] OT Evaluation Row Name 12/07/23 1045 12/03/23 4574 Chart Reviewed Yes -EL -- Session Type [...] Equipment-Currently Using None -EL -- Level of Mower Independent with ADLs;Independent functional transfers;Independent with ambulation [...] Mobility Equipment-Currently Using None -LG Level of Mower Independent functional transfers;Independent with ambulation -LG Lives [...] Outstretched Arm While Standing 0 -LG 9. Gauge Controller Object from Floor from a Standing Position [...] Total 6 Click Score (range 6-24) 13 -LG Score Interpretation 33.99 -LG Safe Environment End of Therapy Session Call light within reach;Bed in lowest position with wheels locked;Patient left in recliner - Problem List Gait deviations;Decreased strength;Decreased range of motion;Decreased endurance;Impaired balance;Decreased mobility - Problem List Comments PT Diagnosis: Revision PSF [id number], decompression results in above listed activity deficits and impairments which prevent full participation in home and community mobility - Plan If this is the last note, consider this the discharge summary;Plan of care initiated - PT Recommendation/Plan Inpatient Rehab Facility -LG Patient at high risk for Falls;Injury due [...] - PT Frequency during current admission 5-7x/wk -LG Treatment/Interventions during current admission Balance Training;Bed mobility;Functional activity;Functional transfer training;Gait training;Neuromuscular re-education;Strengthening;Therapeutic activ ity;Therapeutic exercise - PT Evaluation Complete Yes -LG User Khanna (r) = Recorded By, (t) = Taken By, (c) = Cosigned By Initials Name Effective Dates LG Belén Alvarez, PT 04/18/19 - PT TREATMENT (last 168 [...] -- Activity Tolerance Activity Tolerance Comments Karyna: (06/15) -MM RPE: medium -MB RPE deferred [...] -- -- -EZ (r) MB (c) 9. Gauge Controller Object from Floor from a Standing Position [...] supported UE supported on PTs arms -EZ (r) MB (c) Static Standing-Standing Surface Floor -MM Floor [...] Problem List Comments PT Diagnosis: Revision PSF [id number], decompression results in above listed activity deficits [...] to prior level of function -EZ (r) RADHA (c) Recommend Inpatient Rehab/Acute Rehab due to [...] at discharge with support system in place -CRISTIAN (r) RADHA (c) PT Recommendation/Plan Comments Patient agreeable with current plan of care -MM -- -- PT Frequency during current admission 5-7x/wk -MM 5-7x/wk -MB 5-7x/wk -EZ (r) RADHA (c) Treatment/Interventions during current admission Balance Training;Bed mobility;Endurance training;Equipment eval/education;Functional activity;Functional transfer training;Gait training;Neuromuscularre- education;Strengthening;Therapeutic activity;Therapeutic exercise -MM Balance Training;Bed mobility;Endurance training;Equipment eval/education;Functional activity;Functional transfer training;Gait training;Neuromuscular re- education;Strengthening;Therapeutic activity;Therapeutic exercise -MB Balance Training;Bed mobility;Endurance training;Functional transfer training;Gait training;Stair training;Strengthening;Therapeutic activity;Therapeutic exercise -EZ (r) RADHA (c) PT Equipment Recommended Other (Comment) Pending progress -MM None -MB None -EZ (r) RADHA (c) Progress during current admission Progressing toward goals -MM Progressing toward goals -MB Progressing toward goals -EZ (r) RADHA (c) PT Evaluation Complete Yes -MM -- -- User Khanna (r) = Recorded By, (t) = Taken By, (c) = Cosigned By Initials Name Effective Dates MB Liz Doll, PT 06/27/19 - MM Jeremy Saucedo, PT 04/23/23 - Rika Pemberton 10/01/23 - 12/06/23 PT Notes 12/07/2023 12:49 PM Progress Notes signed by Jeremy Saucedo, PT * Plan of Care - Alannah Paredes RN - 12/08/2023 11:06 AM CDT Teleprinter noted patient has been recommended for inpatient rehab by PT/OT. Teleprinter met withthe patient/family at bedside to discussion recommendations by therapy and to work on a potential discharge disposition plan. Teleprinter provided education to patient/family on the rehabilitation process. Patient reported he/she was interested in placement for rehabilitation. catering service manager provided a facility list to patient and family. Patient and family selected the following choices (preference order): [facility] home. Clinical liaison from [place] met with patient, and patient would like to proceed. Insurance auth started. catering service manager sent out referrals via ECIN. CM [...] to OU/Floor Transfer) SICU HANDOFF 78yo s/p [id number] PSF, post op course c/b Afib RVR req DCCV, chemical cardioversion w/ hypotension req NE PMH: Hypertension, Hyperlipidemia, CAD, CHF, RBBB, A-fib with dual lead ICD, chronic pain, YOCHA DEHE withcochlear implant Hosp Course 12/01: [id number] PSIF, TTF post op 12/02: (pm) afib [...] started on amio gtt - pt has Haul Zing. dual lead PPM with ICD in place. [...] 4 #Thoracolumbar pseudoarthrosis, chronic - 12/01: s/p [id number] PSF revision - Ortho spine primary - [...] + RAP (3), normal diastolic function - Kidamom dual lead PPM with ICD in place. [...] Facility: [facility] Contact: Sunita Miranda (spouse) [phone] CURRENT ANTICOAGULANT THERAPY [x] VTE Prophylaxis [] [...] of the ortho spine service. QUESTIONS? Call [phone] ([phone]). * Plan of Care - [...] will improve Outcome: Progressing Flowsheets (Taken 12/07/2023 7450) Understanding of discharge needs will improve: Discuss information regarding discharge instructions Identify discharge barriers Identify discharge learning needs (meds, wound care, etc.) Problem: Lack of Knowledge Goal: Ability to develop a pain control plan will improve Outcome: Progressing Flowsheets (Taken 12/07/20231454) Ability to develop a pain control plan will improve: Teach information regarding pain management Explain causes of pain and how long pain can be expected to last Educate pain scale for assessing level of pain Teach notification to healthcare provider of episodes of pain Problem: Medication Goal: Satisfaction with pain management medication regimen will improve Outcome: Progressing Flowsheets (Taken 12/07/20231454) Satisfaction with pain management medication regimen will [...] within prescribed range Outcome: Progressing Flowsheets (Taken 12/07/20231454) Glucose maintained within prescribed range: Assess for [...] 40 mg, subcutaneous, Daily-2100, 40 mg at 12/05/232141 fluticasone propionate (FLONASE) 50 mcg/actuation nasal spray 1 spray, 1 spray, each nostril, PRN HYDROmorphone (DILAUDID) injection 0.2 mg, 0.2 mg, intravenous, Q4H PRN, 0.2 mg at 12/06/23 1508 lidocaine (ASPERCREME) 4 % patch 2 patch, 2 patch, transdermal, Daily, 2 patch at 12/06/23 0952 magnesium hydroxide (MILK OF MAGNESIA) 80 mg/mL (33.3 mg/mL as elemental magnesium) oral aemextvpab95 mL, 30 mL, oral, Daily PRN methocarbamoL [...] Lab/Radiology/Diagnostic Review: Labs: Recent Labs Lab Units 12/05/23 1937 12/05/23 0554 12/04/23 2128 12/03/23 2246 12/03/237 12/03/23 0353 HEMOGLOBIN, POC -- -- -- [...] Lab Units 12/05/23 1937 12/05/23 0554 12/04/23212712/04/23 11312/03/23210512/03/232104 SODIUM mmol/L 135 139 136 137 -- [...] INR 1.04 1.08 Recent Labs Lab Units 12/03/23225812/03/23224512/02/23 1629 PH ART 7.35 7.38 7.38 PCO2 [...] additional questions or concerns. Herson Read MD Automotive Designer 3:38 PM 12/06/23 Cosigned by Amaury Linn [...] will decrease Outcome: Ongoing * Plan of Rebecca - Juanito Renteria RN - 12/04/2023 7:10 [...] 78 y.o. 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, [place] DC-ICD, AFib RVR with inappropriate ICD shocks [...] somewhat hypotensive I did not feel comfortable givingan IV dose of beta blockade without an [...] out to: Abhijeet 7:30p-6:30a (Night Floor Resident): [phone] Consult Resident: [phone] Specific Resident: [email or web address] to page/call appropriate Orthopaedic Surgery Team/Resident Call Schedule: AMION for [facility] Orthopaedic Surgery (pw: [facility]) For ortho primary adult patients, Thu - Thu 6a-6p: Call [phone] nurses station for PA/HIGH SCHOOL FOREIGN LANGUAGE TUTOR ([phone]) For ortho primary pediatric patients, Thu - Thu 6a-6p: Call 10th floor nurses station for HIGH SCHOOL FOREIGN LANGUAGE TUTOR * Plan of Care - Michelle Johnston [...] Clinical [place] [address], monitor VS and neuro exam, promote safety and comfort, pain management * Op Note - Jeremy Michelle MD - 12/02/2023 11:21 AM CDT Operative Report Surgeon Jeremy Michelle MD PhD Saddle Maker(s) Isabelle Deleon MD Anesthesia General endotracheal. Preoperative/Postop Diagnosis Pseudoarthrosis Adjacent segment disease (ASD) Prior spinal surgery, instrumented L1-4 Procedure(s) Y18-klocku PSIF with revision Posterior column osteotomy, T12/L1 Posterior column osteotomy, L1/2 Removal of hardware, L1 screws bilaterally Correction of kyphotic deformity via osteotomies and pro-axis bed Use and interpretation of O-arm Use and interpretation flouro Use and interpretation, x-ray Indications for Surgery This is a pleasant 78-year-old female well known to pa. She is undergone previous spinal surgeries in years past most recently with pa 4 years ago. She is gone on [...] wasplaced if not already in place. Cantu M2G tongs were not used due to her [...] cx Jeremy Michelle MD PhD Attending Physician [facility]opa[facility] Division of Spine Surgery c. p. [phone] Implant Information Implant Name Type Inv. Item Serial No. Studio Sales Associate Lot No. LRB No. Used Action [employer]OSOURCE Crushed Chip Frozen Graft 90ml Bone Cancellous [id number] - [id number] [employer]OURCE CrushedChip Frozen Graft 90ml Bone Cancellous [id number] Allosource [id number] N/A 1 Implanted DEPUY SYNTHES SPINE Substitute Bone Graft Fibergraft Large Bioactive Glass Putty [id number] - [id number] DEPUY SYNTHES SPINE Substitute Bone Graft Fibergraft Large Bioactive Glass Putty [id number] DepuySynthes Spine N/A 1 Implanted [employer] Kit Graft Bone Sponge Xlg Infuse 8cc Granules [id number] - [id number] [employer] KitGraft Bone Sponge Xlg Infuse 8cc Granules [id number] Medtronic Inc [id number] N/A 1 Implanted [employer] Kit Graft Bone Sponge Xlg Infuse 8cc Granules 5469896 - [id number] [employer] KitGraft Bone Sponge Xlg Infuse 8cc Granules [id number] Med[employer]onic Inc [id number] N/A 1 Implanted [employer] Kit Graft Bone Sponge Xlg Infuse 8cc Granules [id number] - [id number] [employer] KitGraft Bone Sponge Xlg Infuse 8cc Granules 0629856 Med[employer] Inc [id number] N/A 1 Implanted [employer]OURCE Crushed Chip Frozen Graft 60ml Bone Cancellous [id number] - [id number] [employer] CrushedChip Frozen Graft 60ml Bone Cancellous [id number] Allosource [id number] N/A 1 Implanted DEPUY SYNTHES SPINE Expedium 5mm 45mm Fix Spine Cortical Screw Bone Titanium 5.5mm [id number] - [id number] DEPUY SYNTHES SPINE Expedium 5mm 45mm Fix Spine Cortical Screw Bone Titanium 5.5mm [id number] Synthes Spine N/A 2 Implanted DEPUY SYNTHES SPINE Expedium 5.5mm 45mm Polyaxial Spine Screw Bone Titanium 5.5mm El [id number] - [id number] DEPUY SYNTHES SPINE Expedium 5.5mm 45mm Polyaxial Spine Screw Bone Titanium 5.5mm El [id number] Depuy Synthes Spine N/A 1 Implanted DEPUY SYNTHES SPINE Expedium 5.5mm 50mm Polyaxial Spine Screw Bone Titanium 5.5mm El [id number] - [id number] DEPUY SYNTHES SPINE Expedium 5.5mm 50mm Polyaxial Spine Screw Bone Titanium 5.5mm El [id number] Depuy Synthes Spine N/A 3 Implanted DEPUY SYNTHES SPINE Expedium 1 Inner Monoaxial Spine Screw Set Titanium [id number] - [id number] DEPUY SYNTHES SPINE Expedium 1 Inner Monoaxial Spine Screw Set Titanium [id number] Depuy Synthes Spine N/A 14 Implanted DEPUY SYNTHES SPINE Expedium 5.5mm 480mm El Spinal Titanium Nonsterile [id number] - [id number] DEPUY SYNTHES SPINE Expedium 5.5mm 480mm El Spinal Titanium Nonsterile [id number] Depuy Synthes Spine N/A 2 Implanted DEPUY SYNTHES SPINE Substitute Bone Graft Fibergraft Large Bioactive Glass Putty [id number] - [id number] DEPUY SYNTHES SPINE Substitute Bone Graft Fibergraft Large Bioactive Glass Putty [id number] [facility] Spine N/A 3 Implanted DEPUY SYNTHES SPINE Screw Viper 8x65mm [id number] - [id number] DEPUY SYNTHES SPINE Screw Viper 8x65mm [id number] Depuy Synthes Spine N/A 2 Implanted Operative Report dictated by Jeremy Michelle MD PhD on 12/02/23 using Fluency Direct. Ground Crewman variances may occur. * Brief Op Note - Isabelle Deleon MD - 12/02/2023 11:21 AM CDT Operative Progress Note Surgical Team: Surgeons and Role: * Jeremy Michelle MD - Primary * Isabelle Deleon MD - Resident - Observing Anesthesiologist: Steve Hedrick MD TOOL AND DIE ASSEMBLER: Heathre Sam CRNA; Belén Casarez CRNA; Dalia Rod CRNA Student Nurse Nursing Agency Manager: Tee Carver Ethanol Quality Leader: Ashley Knox RN; Wendi Santoro RN Ethanol Quality Leader Relief: Tabby Cuadra RN; Lea Mendoza RN Scrub Relief: Bryant Espino RN; Madai Vasques ST Scrub: Rex Starks ST Complaint Specialist: Khalif Diez MT Saddle Maker: Latisha Retana NP NURSE PRACTIONER PRIVATE: Fay Leyva NP DATE OF SURGERY : 12/02/2023 Preoperative Diagnosis: Pre-op Diagnosis * Fusion of spine of lumbar region [M43.26] * Pseudoarthrosis of lumbar spine [S32.009K] Postoperative Diagnosis: Post-op Diagnosis * Fusion of spine of lumbar region [M43.26] * Pseudoarthrosis of lumbar spine [S32.009K] Procedure(s): Procedure(s) (LRB): FUSION DECOMPRESSION LAMINECTOMY WITH INSTRUMENTATION - DEPUY EXPEDIUM--Posterior spinal instrumented fusion revision F10-Ohsyol with posterior column osteotomies T12/L1 and L1/2, [...] Implant Name Type Inv. Item Serial No. Studio Sales Associate Lot No. LRB No. Used Action [employer] Crushed Chip Frozen Graft 90ml Bone Cancellous [id number] - [id number] [employer] CrushedChip Frozen Graft 90ml Bone Cancellous [id number] Allosource [id number] N/A 1 Implanted DEPUY SYNTHES SPINE Substitute Bone Graft Fibergraft Large Bioactive Glass Putty [id number] - [id number] DEPUY SYNTHES SPINE Substitute Bone Graft Fibergraft Large Bioactive Glass Putty [id number] [facility] N/A 1 Implanted [employer] Kit Graft Bone Sponge Xlg Infuse 8cc Granules 3775130 - [id number] [employer] KitGraft Bone Sponge Xlg Infuse 8cc Granules [id number] Medtronic Inc [id number] N/A 1 Implanted [employer] Kit Graft Bone Sponge Xlg Infuse 8cc Granules [id number] - [id number] [employer] KitGraft Bone Sponge Xlg Infuse 8cc Granules 2672171 Med[employer]onic Inc [id number] N/A 1 Implanted [employer] Kit Graft Bone Sponge Xlg Infuse 8cc Granules 2764750 - [id number] [employer] KitGraft Bone Sponge Xlg Infuse 8cc Granules 8974267 Med[employer]onic Inc [id number] N/A 1 Implanted [employer]OURCE Crushed Chip Frozen Graft 60ml Bone Cancellous [id number] - [id number] [employer]OURCE CrushedChip Frozen Graft 60ml Bone Cancellous [id number] Allosource [id number] N/A 1 Implanted DEPUY SYNTHES SPINE Expedium 5mm 45mm Fix Spine Cortical Screw Bone Titanium 5.5mm [id number] - [id number] DEPUY SYNTHES SPINE Expedium 5mm 45mm Fix Spine Cortical Screw Bone Titanium 5.5mm [id number] Synthes Spine N/A 2 Implanted DEPUY SYNTHES SPINE Expedium 5.5mm 45mm Polyaxial Spine Screw Bone Titanium 5.5mm El [id number] - [id number] DEPUY SYNTHES SPINE Expedium 5.5mm 45mm Polyaxial Spine Screw Bone Titanium 5.5mm El [id number] Depuy Synthes Spine N/A 1 Implanted DEPUY SYNTHES SPINE Expedium 5.5mm 50mm Polyaxial Spine Screw Bone Titanium 5.5mm El [id number] - [id number] DEPUY SYNTHES SPINE Expedium 5.5mm 50mm Polyaxial Spine Screw Bone Titanium 5.5mm El [id number] Depuy Synthes Spine N/A 3 Implanted DEPUY SYNTHES SPINE Expedium 1 Inner Monoaxial Spine Screw Set Titanium [id number] - [id number] DEPUY SYNTHES SPINE Expedium 1 Inner Monoaxial Spine Screw Set Titanium [id number] Depuy Synthes Spine N/A 14 Implanted DEPUY SYNTHES SPINE Expedium 5.5mm 480mm El Spinal Titanium Nonsterile [id number] - [id number] DEPUY SYNTHES SPINE Expedium 5.5mm 480mm El Spinal Titanium Nonsterile [id number] Depuy Synthes Spine N/A 2 Implanted DEPUY SYNTHES SPINE Substitute Bone Graft Fibergraft Large Bioactive Glass Putty [id number] - [id number] DEPUY SYNTHES SPINE Substitute Bone Graft Fibergraft Large Bioactive Glass Putty [id number] DepuySynthes Spine N/A 3 Implanted DEPUY SYNTHES SPINE Screw Viper 8x65mm [id number] - [id number] DEPUY SYNTHES SPINE Screw Viper 8x65mm [id number] Depuy Synthes Spine N/A 2 Implanted Blood/Blood [...] Michael Agee via phone call reschedule to 12/01-[facility] Special Needs Cut to close:300min,#20 bone scalpel, SCM, Fluoroscopy, O-arm, TXA, PROAXIS, GW, auto/allograft chips, fibergraft, 2 lrg unopened BMP kit, DePuy Expedium, Bone Stimulator post op,need to send pathology/micro see comments SPINAL CORD MONITORING 12/02/2023 9:09 AM CDT Fusion 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 Case Notes 11/12@Brissa Agee via phone call reschedule to 12/01[facility] Special Needs Cut to close:300min,#20 bone scalpel, SCM, Fluoroscopy, O-arm, TXA, PROAXIS, GW, auto/allograft chips, fibergraft, 2 lrg unopened BMP kit, DePuy Expedium, Bone Stimulator post op,need to send pathology/micro see comments OSTEOTOMY POSTERIOR SPINAL 12/02/2023 9:09 AM CDT Fusion 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 Case Notes 11/12@Brissa Agee via phone call reschedule to 12/01[facility] Special Needs Cut to close:300min,#20 bone scalpel, SCM, Fluoroscopy, O-arm, TXA, PROAXIS, GW, auto/allograft chips, fibergraft, 2 lrg unopened BMP kit, DePuy Expedium, Bone Stimulator post op,need to send pathology/micro see comments REMOVAL HARDWARE SPINE 12/02/2023 9:09 AM CDT Fusion 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 Case Notes 11/12@Brissa Agee via phone call reschedule to 12/01[facility] Special Needs Cut to close:300min,#20 bone scalpel, SCM, Fluoroscopy, O-arm, TXA, PROAXIS, GW, auto/allograft chips, fibergraft, 2 lrg unopened BMP kit, DePuy Expedium, Bone Stimulator post op,need to send pathology/micro see comments FUSION DECOMPRESSION LAMINECTOMY WITH INSTRUMENTATION - DEPUY EXPEDIUM 12/02/2023 9:09 AM CDT Fusion 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 Case Notes 11/12@Brissa Agee via phone call reschedule to 12/01[facility] Special Needs Cut to close:300min,#20 bone scalpel, [...] subclavian approach pacemaker are noted. Procedure Note Greg Gonzalez MD - 12/08/2023 EXAMINATION: XR SCOLIOSIS [...] Result * eGFR (12/07/2023 8:33 PM CDT) Pathologist [facility] eGFR >90 >=60 mL/min/1. 73 m2 Comment: [...] 8:33 PM CDT 12/07/2023 8:54 PM CDT us Sydnee Collier NP LAB BLOOD ORDERABLES F inal Result [facility] [place] [address] * Phosphorus (12/07/2023 8:33 PM CDT) Pathologist [facility] Phosphorus, pl 3.0 2.3 - 4.5 mg/dL Blood 12/07/2023 8:33 PM CDT 12/07/2023 8:54 PM CDT Sydnee Collier [employer] LANGUAGE TUTOR LAB BLOOD ORDERABLES F inal Result Performing Organization Address City/[facility] Co de Phone Number [facility] [place] [address] * Magnesium (12/07/2023 8:33 PM CDT) [facility] Magnesium 2.0 1.4 - 2.5 mg/dL Blood 12/07/2023 8:33 PM CDT 12/07/2023 8:54 PM CDT Sydnee Collier [employer]IGH [employer] LANGUAGE TUTOR LAB BLOOD ORDERABLES F inal Result Performing Organization Address [facility] de Phone Number [facility] [place] [address] * (ABNORMAL) CBC without differential (12/07/2023 8:33 PM CDT) [facility] WBC 8.9 3.8 - 9.9 K/cumm Hgb 9.1(L) 11.9 - 15.5 g/dL [facility] Hct 26.9(L) 35.6 - 45.5 % [facility] Plt 272 150 - 400 K/cumm [facility] MPV 9.8 9.1 - 12.3 fL [facility] RBC 3.07(L) 3.90 - 5.20 M/cumm [facility] MCV 87.6 81.3 - 96.4 fL [facility] MCH 29.6 27.1 - 33.3 pg [facility] MCHC 33.8 32.3 - 35.7 g/dL [facility] RDW CV 15.3(H) 11.1 - 14.9 % [facility] RDW SD 48.7(H) 35.7 - 48.1 fL [facility] NRBC abs 0.00 0.00 - 0.01 K/cumm [facility] Blood 12/07/2023 8:33 PM CDT 12/07/2023 8:54 PM CDT Sydnee Collier [employer] LANGUAGE TUTOR LAB BLOOD ORDERABLES F inal Result [facility] Department [place] [address] * (ABNORMAL) Basic metabolic panel (12/07/2023 8:33 PM CDT) [facility] Sodium 136 135 - 145 mmol/L Potassium, pl 4.2 3.3 - 4.9 mmol/L [facility] Chloride 102 97 - 110 mmol/L [facility] CO2 27 22 - 32 mmol/L [facility] Anion gap 7 2 - 15 mmol/L [facility] BUN 7 6 - 25 mg/dL [facility] Creatinine 0.63 0.60 - 1.10 mg/dL [facility] Glucose 98 70 - 199 mg/dL [facility] Comment: Interpretive Data Fasting glucose >/= [...] 2022. Calcium 8.2(L) 8.5 - 10.3 mg/dL [facility] Blood 12/07/2023 8:33 PM CDT 12/07/2023 8:54 PM CDT Sydnee Collier [employer] LANGUAGE TUTOR LAB BLOOD ORDERABLES F inal Result Performing Organization Address City/[facility]/ZIP Co de Phone Number [facility] Department [place] [address] * Critical Care (12/07/2023 6:35 AM CDT) [...] plan with the patient's team and other medical/process consultant staff. This time was in addition to and separate from care provided by other practitioners on this day of service. ? I spent time reviewing and interpreting data from bedside monitors, laboratory results, and imaging and I spent time documenting in the medical record Sydnee Collier NP IN CLINIC/BEDSIDE GAIL AYERS Final Result * (ABNORMAL) CBC without differential (12/06/2023 10:24 PM CDT) [facility] WBC 6.9 3.8 - 9.9 K/cumm Hgb 8.7(L) 11.9 - 15.5 g/dL [facility] Hct 25.8(L) 35.6 - 45.5 % [facility] Plt 208 150 - 400 K/cumm [facility] MPV 10.1 9.1 - 12.3 fL [facility] RBC 2.92(L) 3.90 - 5.20 M/cumm [facility] MCV 88.4 81.3 - 96.4 fL [facility] MCH 29.8 27.1 - 33.3 pg [facility] MCHC 33.7 32.3 - 35.7 g/dL [facility] RDW CV 15.3(H) 11.1 - 14.9 % [facility] RDW SD 49.3(H) 35.7 - 48.1 fL [facility] NRBC abs 0.00 0.00 - 0.01 K/cumm [facility] Blood 12/06/2023 10:2 4 PM CDT 12/06/2023 10:41 PM CDT Chinyere Abreu NP LAB BLOOD ORDERABLES Final Result [facility] Department [place] [address] * eGFR (12/06/2023 8:51 PM CDT) eGFR >90 >=60 mL/min/1. 73 [...] 12/06/2023 9:24 PM CDT us Rika Solano [employer]ANG[employer] T[employer]OR LAB BLOOD ORDERABLES Final Result Performing Organization Address [facility] Co de Phone Number [facility] [place] [address] * (ABNORMAL) Calcium, ionized (12/06/2023 8:51 PM CDT) Calcium, Ionized 4.37(L) 4.50 - 5.10 mg/dL Blood 12/06/2023 8:51 PM CDT 12/06/2023 9:07 PM CDT us Rika Solano NP LAB BLOOD ORDERABLES Final Result Performing Organization Address [facility] de Phone Number [facility] [place] [address] * Phosphorus (12/06/2023 8:51 PM CDT) Phosphorus, pl 2.6 2.3 - 4.5 mg/dL Blood 12/06/2023 8:51 PM CDT 12/06/2023 9:06 PM CDT us Rika Solano NP LAB BLOOD ORDERABLES Final Result Performing Organization Address [facility] de Phone Number [facility] [place] [address] * Magnesium (12/06/2023 8:51 PM CDT) Magnesium 2.1 1.4 - 2.5 mg/dL Blood 12/06/2023 8:51 PM CDT 12/06/2023 9:06 PM CDT us Rika Dilcia Mandernach [employer]OR LAB BLOOD ORDERABLES Final Result [facility] Department [place] [address] * (ABNORMAL) Basic metabolic panel (12/06/2023 8:51 PM CDT) [facility] Sodium 137 135 - 145 mmol/L Potassium, pl 4.2 3.3 - 4.9 mmol/L [facility] Chloride 104 97 - 110 mmol/L [facility] CO2 25 22 - 32 mmol/L [facility] Anion gap 8 2 - 15 mmol/L [facility] BUN 6 6 - 25 mg/dL [facility] Creatinine 0.62 0.60 - 1.10 mg/dL [facility] Glucose 93 70 - 199 mg/dL [facility] Comment: Interpretive Data Fasting glucose >/= [...] 2022. Calcium 8.0(L) 8.5 - 10.3 mg/dL [facility] Blood 12/06/2023 8:51 PM CDT 12/06/2023 9:06 PM CDT us Rika Solano NP LAB BLOOD ORDERABLES Final Result Performing Organization Address City/[facility]/ZIP Co de Phone Number [facility] Department [place] [address] * Critical Care (12/06/2023 6:41 PM CDT) [...] plan with the patient's team and other medical/process consultant staff. This time was in addition to and separate from care provided by other practitioners on this day of service. ?? us Chinyere Abreu NP IN CLINIC/BEDSIDE OR DERABLES Final Result * CP-CRE culture, surveillance Rectal swab (12/06/2023 6:15 PM CDT) Report Amended Report - Complete: Negative Rectal swab 12/06/2023 6:15 PM CDT 12/06/2023 7:44 PM CDT Narrative [facility] - 12/09/2023 10:16 AM CDT Interpretive Data The screening agar used for the detection of carbapenemase-producing Enterobacterales (CP-CRE) has not been approved by the Food and Drug Administration. The performance characteristics of this medium have been evaluated and verified by the [facility] Laboratory. This media demonstrates highest sensitivity for KPC and NDM-1 producing isolates. This screening assay is exclusively intended for infection control and surveillance, not for patient diagnosis or treatment purposes. Current interpretive data was last revised on 2023. us Rg Krishnamurthy MD LAB MICROBIOLOGY - GENERAL OR DERABLES Edited Result - Final [facility] Department [place] [address] * Infection Prevention Diaz auris PCR, surveillance Axilla/Groin (12/06/2023 6:15 PM CDT) Diaz auris DNA Not Detected Not Detected [facility] Comment: Interpretive Data Testing performed by [facility] Molecular Infectious Disease Laboratory using the DiaParallocity Liaison MDX Diaz auris assay. ??This assay detects DNA from Diaz auris using Real-Time PCR. ??This assay is laboratory developed and is not cleared by the [place] Food and Drug Administration. ??The performance characteristics have been verified by the [facility] Molecular Infectious Disease Laboratory. Interpretive data was last reviewed on 11/18/2023 Axilla/Groin 12/06/2023 6:15 PM CDT 12/06/2023 7:38 PM CDT us Rg Krishnamurthy MD LAB MICROBIOLOGY - GENERAL OR DERABLES Final Result [facility] [facility] Department [place] [address] [facility] * Critical Care (12/06/2023 6:18 [...] plan with the ICU team and other medical/process consultant staff, making frequent assessments and decisions [...] colon. Electronically signed by: Antoine Chisholm M.D. Jeremy Michelle MD IMG XR PROCEDURES [...] 7:37 PM CDT 12/05/2023 7:56 PM CDT us Chinyere Abreu [employer] LAB BLOOD ORDERABLES Final Result Performing Organization Address City/[facility] Co de Phone Number [facility] Department [place] [address] * Lactate, whole blood (12/05/2023 7:37 PM CDT) Lactate, bld 0.8 0.7 - 2.0 mmol/L Blood 12/05/2023 7:37 PM CDT 12/05/2023 7:49 PM CDT Chinyere Abreu [employer] LAB BLOOD ORDERABLES Final Result Performing Organization Address City/[facility] Co de Phone Number [facility] [place] [address] * (ABNORMAL) Calcium, ionized (12/05/2023 7:37 PM CDT) Calcium, Ionized 4.44(L) 4.50 - 5.10 mg/dL Blood 12/05/2023 7:37 PM CDT 12/05/2023 7:49 PM CDT Chinyere Abreu [employer] LAB BLOOD ORDERABLES Final Result [facility] [place] [address] * (ABNORMAL) Basic metabolic panel (12/05/2023 7:37 PM CDT) [facility] Sodium 135 135 - 145 mmol/L Potassium, pl 3.7 3.3 - 4.9 mmol/L [facility] Chloride 103 97 - 110 mmol/L [facility] CO2 25 22 - 32 mmol/L [facility] Anion gap 7 2 - 15 mmol/L [facility] BUN 5(L) 6 - 25 mg/dL [facility] Creatinine 0.56(L) 0.60 - 1.10 mg/dL [facility] Glucose 116 70 - 199 mg/dL [facility] Comment: Interpretive Data Fasting glucose >/= [...] 2022. Calcium 8.2(L) 8.5 - 10.3 mg/dL [facility] Blood 12/05/2023 7:37 PM CDT 12/05/2023 7:56 PM CDT Chinyere Abreu NP LAB BLOOD ORDERABLES Final Result [facility] [place] [address] * Phosphorus (12/05/2023 7:37 PM CDT) [facility] Phosphorus, pl 2.3 2.3 - 4.5 mg/dL Blood 12/05/2023 7:37 PM CDT 12/05/2023 7:56 PM CDT Chinyere Abreu [employer] LAB BLOOD ORDERABLES Final Result Performing Organization Address City/[facility]/ZIP [place] [address] * Magnesium (12/05/2023 7:37 PM CDT) [facility] Magnesium 2.2 1.4 - 2.5 mg/dL Blood 12/05/2023 7:37 PM CDT 12/05/2023 7:56 PM CDT Chinyere Abreu [employer] LAB BLOOD ORDERABLES Final Result Performing Organization Address City/[facility] Co de Phone Number [facility] [place] [address] * (ABNORMAL) CBC without differential (12/05/2023 7:37 PM CDT) [facility] WBC 9.5 3.8 - 9.9 K/cumm Hgb 8.9(L) 11.9 - 15.5 g/dL [facility] Hct 25.9(L) 35.6 - 45.5 % [facility] Plt 173 150 - 400 K/cumm [facility] MPV 10.3 9.1 - 12.3 fL [facility] RBC 3.02(L) 3.90 - 5.20 M/cumm [facility] MCV 85.8 81.3 - 96.4 fL [facility] MCH 29.5 27.1 - 33.3 pg [facility] MCHC 34.4 32.3 - 35.7 g/dL [facility] RDW CV 15.0(H) 11.1 - 14.9 % [facility] RDW SD 47.6 35.7 - 48.1 fL [facility] NRBC abs 0.00 0.00 - 0.01 K/cumm [facility] Blood 12/05/2023 7:37 PM CDT 12/05/2023 7:56 PM CDT us Chinyere Abreu [employer] LAB BLOOD ORDERABLES Final Result [facility] [place] [address] * Critical Care (12/05/2023 7:00 PM CDT) Narrative Robert Shetty MD - 12/05/2023 7:00 PM CDT Chinyere Abreu NP ? 12/06/2023 ??5:01 AM Critical Care Performed by: Chineyre Abreu NP Authorized by: Chinyere Abreu NP [...] plan with the patient's team and other medical/process consultant staff. This time was in addition to and separate from care provided by other practitioners on this day of service. ?? us Chinyere Abreu [employer] T[employer] IN CLINIC/BEDSIDE OR DERABLES Final Result * [...] plan with the ICU team and other medical/process consultant staff, making frequent assessments and decisions [...] Result * eGFR (12/05/2023 5:54 AM CDT) [facility] eGFR >90 >=60 mL/min/1. 73 m2 Comment: [...] CDT 12/05/2023 6:17 AM CDT Chinyere Abreu NP LAB BLOOD ORDERABLES Final Result [facility] [place] [address] * (ABNORMAL) CBC without differential (12/05/2023 5:54 AM CDT) WBC 9.7 3.8 - 9.9 K/cumm Hgb 8.6(L) 11.9 - 15.5 g/dL [facility] Hct 24.9(L) 35.6 - 45.5 % [facility] Plt 168 150 - 400 K/cumm [facility] MPV 10.1 9.1 - 12.3 fL [facility] RBC 2.88(L) 3.90 - 5.20 M/cumm [facility] MCV 86.5 81.3 - 96.4 fL [facility] MCH 29.9 27.1 - 33.3 pg [facility] MCHC 34.5 32.3 - 35.7 g/dL [facility] RDW CV 15.0(H) 11.1 - 14.9 % [facility] RDW SD 47.2 35.7 - 48.1 fL [facility] NRBC abs 0.00 0.00 - 0.01 K/cumm [facility] Blood 12/05/2023 5:54 AM CDT 12/05/2023 6:17 AM CDT us Chinyere Abreu [employer] LAB BLOOD ORDERABLES Final Result Performing Organization Address City/[facility]/ZIP Co de Phone Number [facility] [place] [address] * Phosphorus (12/05/2023 5:54 AM CDT) Pathologist [facility] Phosphorus, pl 3.1 2.3 - 4.5 mg/dL Blood 12/05/2023 5:54 AM CDT 12/05/2023 6:17 AM CDT Chinyere Abreu [employer] LAB BLOOD ORDERABLES Final Result Performing Organization Address [facility] Co de Phone Number [facility] [place] [address] * Magnesium (12/05/2023 5:54 AM CDT) [facility] Magnesium 2.1 1.4 - 2.5 mg/dL Blood 12/05/2023 5:54 AM CDT 12/05/2023 6:17 AM CDT Chinyere Abreu [employer] LAB BLOOD ORDERABLES Final Result Performing Organization Address [facility] Co de Phone Number [facility] [place] [address] * (ABNORMAL) Basic metabolic panel (12/05/2023 5:54 AM CDT) [facility] Sodium 139 135 - 145 mmol/L Potassium, pl 3.3 3.3 - 4.9 mmol/L [facility] Chloride 104 97 - 110 mmol/L [facility] CO2 27 22 - 32 mmol/L [facility] Anion gap 8 2 - 15 mmol/L [facility] BUN 5(L) 6 - 25 mg/dL [facility] Creatinine 0.54(L) 0.60 - 1.10 mg/dL [facility] Glucose 117 70 - 199 mg/dL [facility] Comment: Interpretive Data Fasting glucose >/= [...] Calcium 7.1(L) 8.5 - 10.3 mg/dL [facility] Blood 12/05/2023 5:54 AM CDT 12/05/2023 6:17 AM CDT Chinyere Abreu [employer] LAB BLOOD ORDERABLES Final Result Performing Organization Address City/State/[facility] Co de Phone Number [facility] [place] [address] * eGFR (12/04/2023 9:28 PM CDT) eGFR [...] Ad MCLEAN LAB BLOOD ORDERABLES Final Result [facility] [place] [address] * (ABNORMAL) Comprehensive metabolic panel (12/04/2023 9:28 PM CDT) Sodium 136 135 - 145 mmol/L Potassium, pl 3.6 3.3 - 4.9 mmol/L [facility] Chloride 104 97 - 110 mmol/L [facility] CO2 26 22 - 32 mmol/L [facility] Anion gap 6 2 - 15 mmol/L [facility] BUN 7 6 - 25 mg/dL [facility] Creatinine 0.54(L) 0.60 - 1.10 mg/dL [facility] Glucose 146 70 - 199 mg/dL [facility] Comment: Interpretive Data Fasting glucose >/= [...] 2022. Calcium 7.8(L) 8.5 - 10.3 mg/dL [facility] Bilirubin, total 0.3 0.1 - 1.2 mg/dL [facility] Protein, pl 5.3(L) 6.5 - 8.5 g/dL [facility] Albumin 2.8(L) 3.5 - 5.0 g/dL [facility] Alk phos 84 40 - 130 Units/L [facility] ALT 76(H) 7 - 45 Units/L [facility] AST 132(H) 10 - 45 Units/L [facility] Blood 12/04/2023 9:28 PM CDT 12/04/2023 9:41 PM CDT Ad MCLEAN LAB BLOOD ORDERABLES Final Result Performing Organization Address City/[facility]/ZIP Co de Phone Number [facility] [place] [address] * (ABNORMAL) Phosphorus (12/04/2023 9:28 PM CDT) Phosphorus, pl 1.7(L) 2.3 - 4.5 mg/dL Blood 12/04/2023 9:28 PM CDT 12/04/2023 9:41 PM CDT Ad MCLEAN LAB BLOOD ORDERABLES Final Result Performing Organization Address City/[facility] Co de Phone Number [facility] [place] [address] * Magnesium (12/04/2023 9:28 PM CDT) Magnesium 1.8 1.4 - 2.5 mg/dL Blood 12/04/2023 9:28 PM CDT 12/04/2023 9:41 PM CDT Ad MCLEAN LAB BLOOD ORDERABLES Final Result Performing Organization Address City/[facility]/ZIP Co de Phone Number [facility] Department [place] [address] * (ABNORMAL) CBC without differential (12/04/2023 9:28 PM CDT) WBC 11.1(H) 3.8 - 9.9 K/cumm Hgb 8.7(L) 11.9 - 15.5 g/dL [facility] Hct 25.8(L) 35.6 - 45.5 % [facility] Plt 148(L) 150 - 400 K/cumm [facility] MPV 10.1 9.1 - 12.3 fL [facility] RBC 2.95(L) 3.90 - 5.20 M/cumm [facility] MCV 87.5 81.3 - 96.4 fL [facility] MCH 29.5 27.1 - 33.3 pg [facility] MCHC 33.7 32.3 - 35.7 g/dL [facility] RDW CV 15.0(H) 11.1 - 14.9 % [facility] RDW SD 48.3(H) 35.7 - 48.1 fL [facility] NRBC abs 0.00 0.00 - 0.01 K/cumm [facility] Blood 12/04/2023 9:28 PM CDT 12/04/2023 9:41 PM CDT Ad MCLEAN LAB BLOOD ORDERABLES Final Result [facility] [place] [address] * ECG 12 lead (12/04/2023 9:17 PM CDT) Ventricular Rate EKG/Min 126 BPM [facility] QRS-Interval (MSEC) 112 ms [facility] QT-Interval (MSEC) 354 ms [facility] QTc 512 ms [facility] R [place] 11 degrees [facility] T [place] 184 degrees [facility] Diagnosis Atrial fibrillation with rapid ventricular response with occasional ventricular-paced complexes Incomplete left bundle branch block Marked ST abnormality, possible inferolateral subendocardial injury Abnormal ECG Confirmed by Marcel Westfall MD ([id number]) on 12/07/2023 3:12:42 PM [facility] 12/04/2023 9:17 PM CDT 12/07/2023 3:12 PM CDT us Chinyere Abreu [employer] ECG ORDERABLES Geovanna l Result [facility] * Critical Care (12/04/2023 7:41 PM CDT) [...] plan with the ICU team and other medical/process consultant staff, making frequent assessments and decisions [...] in the medical record us Chinyere Abreu [employer] T[employer]OR IN CLINIC/BEDSIDE OR DERABLES Final Result * POCT glucose (12/04/2023 7:28 PM CDT) Glucose, POC 129 70 - 199 mg/dL Blood 12/04/2023 7:28 PM CDT 12/04/2023 7:28 PM CDT Jeremy Michelle MD LAB POCT ORDERABLES - DEVICE Final Result Performing Organization Address [facility] Co de Phone Number [facility] Department [place] [address] * (ABNORMAL) Troponin I high-sensitivity 6-hour (12/04/2023 5:57 PM CDT) Trop I hs 11,198(C) <=17 ng/L Comment: Previous critical value noted within 48 hours ago. Interpretive Data For further hscTnI resources including the diagnostic algorithm and an aid in interpretation, copy and paste this link: https://bjhlab.testcatalog.org/show/hsTrop-1 Current Interpretive Data last revised 2020. Trop I hs pct delta -20(C) % [facility] Comment:reviewed Trop I hs interp Significa nt(C) [facility] Comment:reviewed Blood 12/04/2023 5:57 PM CDT 12/04/2023 6:08 PM CDT Len MCLEAN LAB BLOOD ORDERABLES Fin al Result Performing Organization Address [facility] de Phone Number [facility] Department [place] [address] * TRANSTHORACIC ECHO (TTE) COMPLETE W DOPPLER/CF W CONTRAST (12/04/2023 3:48 PM CDT) LV EF 76 % [facility] Anatomical Region Laterality Modality Ultrasound 12/04/2023 1:50 PM CDT Narrative 12/04/2023 4:27 PM CDT Patient name: Macie Briseno Date of test: 12/04/2023 Type of test: TTE w/Doppler Hospital #: 0 Date of : 1945 (F) Continuity Editor: Johnathan Diez RDCS Referring Physician: LEN KLEIN MD Contrast Agent: 1.1 ml Optison Administered, (1.9 ml wasted). Contrast Administered by: Supervised/Interpreted by: Edgar Arroyo MD Diagnosis: Location: [facility] Reason for test: AFib w/ RVR MV [...] 2=Hypo 3=Akinetic 4=Dyskin./Aneurysm 0=Not visualized) Parasternal Long [place]:MAS=1 BAS=1 MIL=1 OLGA=1 Parasternal Short [place]:MAS=1 MIS=1 ID=1 MIL=1 MAL=1 MA=1 Apical 4 Chambers:=1 MIS=1 BIS=1 BAL=1 MAL=1 AL=1 AC=1 Apical 2 Chambers:AI=1 ID=1 BI=1 BA=1 MA=1 AA=1 AC=1 LV Global [...] MD By signing this report, the attending microbiology coordinator certifies that he or she has personally supervised and interpreted the echocardiogram and has reviewed and or edited and agrees with the written comments contained within the report. Procedure Note Edgar Jacob MD - 12/04/2023 Patient name: Macie Briseno Date of test: 12/04/2023 Type of test: TTE w/Doppler [facility] #: 0 Date of : 1945 (F) Continuity Editor: Johnathan Diez [facility] Referring Physician: LEN KLEIN MD Contrast Agent: 1.1 ml Optison Administered, (1.9 ml wasted). Contrast Administered by: Supervised/Interpreted by: Edgar Arroyo MD Diagnosis: Location: [facility] Reason for test: AFib w/ RVR MV [...] 2=Hypo 3=Akinetic 4=Dyskin./Aneurysm 0=Not visualized) Parasternal Long [place]:MAS=1 BAS=1 MIL=1 OLGA=1 Parasternal Short [place]:MAS=1 MIS=1 ID=1 MIL=1 MAL=1 MA=1 Apical 4 Chambers:=1 MIS=1 BIS=1 BAL=1 MAL=1 AL=1 AC=1 Apical 2 Chambers:AI=1 ID=1 BI=1 BA=1 MA=1 AA=1 AC=1 LV Global [...] MD By signing this report, the attending microbiology coordinator certifies that he or she has personally supervised and interpreted the echocardiogram and has reviewed and or edited and agrees with the written comments contained within the report. Len MCLEAN CV ECHO PROCEDURES Final Result * (ABNORMAL) Troponin I high-sensitivity 4-hour (12/04/2023 3:44 PM CDT) Trop I hs 12,137(C) <=17 ng/L Comment: Previous critical value noted within 48 hours ago. Interpretive Data For further [facility] resources including the diagnostic algorithm and an aid in interpretation, copy and paste this link: https://bjhlab.testcatalog.org/show/hsTrop-1 Current Interpretive Data last revised 2020. Trop I hs pct delta -14 % [facility] Trop I hs interp Equivocal [facility] Blood 12/04/2023 3:44 PM CDT 12/04/2023 4:02 PM CDT us Len MCLEAN LAB BLOOD ORDERABLES Fin al Result Performing Organization Address [facility] Co de Phone Number [facility] [place] [address] * POCT glucose (12/04/2023 3:40 PM CDT) Pathologist [facility] Glucose, POC 115 70 - 199 mg/dL Blood 12/04/2023 3:40 PM CDT 12/04/2023 3:40 PM CDT Jeremy Michelle MD LAB POCT ORDERABLES - DEVICE Final Result Performing Organization Address [facility] de Phone Number [facility] [place] [address] * (ABNORMAL) Pro B-type natriuretic peptide (12/04/2023 1:45 PM CDT) [facility] NT-proBNP 1,785(H) <=450 pg/mL Comment: Interpretive Comments: [...] 1:45 PM CDT 12/04/2023 1:58 PM CDT [facility] Herson MCLEAN LAB BLOOD ORDERABLES Fin al Result [facility] [place] [address] * (ABNORMAL) Troponin I high-sensitivity 2-hour (12/04/2023 1:34 PM CDT) Trop I hs 12,405(C) <=17 ng/L Comment: Previous critical value noted within 48 hours ago. Interpretive Data For further hscTnI resources including the diagnostic algorithm and an aid in interpretation, copy and paste this link: https://bjhlab.testcatalog.org/show/hsTrop-1 Current Interpretive Data last revised 2020. Trop I hs pct delta -12(C) % [facility] Trop I hs interp Significa nt(C) [facility] Blood 12/04/2023 1:34 PM CDT 12/04/2023 1:52 PM CDT Len MCLEAN LAB BLOOD ORDERABLES Fin al Result Performing Organization Address [facility] Co de Phone Number [facility] Department [place] [address] * POCT glucose (12/04/2023 11:55 AM CDT) Glucose, POC 99 70 - 199 mg/dL Blood 12/04/2023 11:5 5 AM CDT 12/04/2023 11:55 AM CDT Jeremy Michelle MD LAB POCT ORDERABLES - DEVICE Final Result Performing Organization Address [facility] de Phone Number [facility] Department [place] [address] * (ABNORMAL) Lipid panel (12/04/2023 11:33 AM [...] revised on 2018. Triglycerides 139 <=149 mg/dL [facility] Comment: Interpretive Data Ages < or [...] revised on 2018. HDL 33(L) >=40 mg/dL [facility] Comment: Interpretive Data Ages < or [...] on 2018. LDL, calculated 32 <=129 mg/dL [facility] Comment: Interpretive Data Ages < or [...] on 2018. Non-HDL Cholesterol 60 mg/dL KATIA NIEVES Comment: Interpretive Data Ages < or = [...] last revised on 2018. Chol/HDL ratio 3 [facility] Blood 12/04/2023 11:3 3 AM CDT 12/04/2023 11:42 AM CDT Narrative [facility] - 12/04/2023 8:28 PM CDT This lipid panel was automatically ordered due to a significant change in Troponin. The dietary status of the patient at the collection time should be correlated with the lipid results. Len MCLEAN LAB BLOOD ORDERABLES Fin al Result [facility] [place] [address] * Critical result callback Cardio chemistry (12/04/2023 11:33 AM CDT) Date Notified 20231204 Time Notified 1240 KATIA NIEVES Test name Trop I hs base KATIA NIEVES Called/Read Back Juanito NIEVES Credentials RN KATIA NIEVES Called By JUVENTINOW [facility] Blood 12/04/2023 11:3 3 AM CDT 12/04/2023 11:42 AM CDT Len MCLEAN LAB BLOOD ORDERABLES Fin al Result Performing Organization Address [facility] de Phone Number [facility] [place] [address] * eGFR (12/04/2023 11:33 AM CDT) eGFR [...] ORDERABLES Fin al Result Performing Organization Address [facility]/ZIP Co de Phone Number [facility] [place] [address] * (ABNORMAL) Troponin I high-sensitivity series (baseline, [...] ORDERABLES Fin al Result Performing Organization Address [facility] de Phone Number [facility] [employer] [place] [address] * (ABNORMAL) Phosphorus (12/04/2023 11:33 AM CDT) Pathologist [facility] Phosphorus, pl 1.4(L) 2.3 - 4.5 mg/dL Blood 12/04/2023 11:3 3 AM CDT 12/04/2023 11:42 AM CDT [facility] Herson MCLEAN LAB BLOOD ORDERABLES Fin al Result Performing Organization Address [facility] [place] [address] * Magnesium (12/04/2023 11:33 AM CDT) [facility] Magnesium 2.0 1.4 - 2.5 mg/dL Blood 12/04/2023 11:3 3 AM CDT 12/04/2023 11:42 AM CDT Len MCLEAN LAB BLOOD ORDERABLES Fin al Result [facility] [place] [address] * (ABNORMAL) Basic metabolic panel (12/04/2023 11:33 AM CDT) [facility] Sodium 137 135 - 145 mmol/L Potassium, pl 3.9 3.3 - 4.9 mmol/L [facility] Chloride 106 97 - 110 mmol/L [facility] CO2 26 22 - 32 mmol/L [facility] Anion gap 5 2 - 15 mmol/L [facility] BUN 9 6 - 25 mg/dL [facility] Creatinine 0.60 0.60 - 1.10 mg/dL [facility] Glucose 115 70 - 199 mg/dL [facility] Comment: Interpretive Data Fasting glucose >/= [...] 2022. Calcium 8.0(L) 8.5 - 10.3 mg/dL [facility] Blood 12/04/2023 11:3 3 AM CDT 12/04/2023 11:42 AM CDT Len MCLEAN LAB BLOOD ORDERABLES Fin al Result Performing Organization Address City/[facility]/ZIP Co de Phone Number KATIA NIEVES [facility] [employer] [place] [address] * XR Chest 1 View (12/04/2023 10:23 [...] * POCT glucose (12/04/2023 7:09 AM CDT) [facility] Signature Glucose, POC 115 70 - 199 mg/dL Blood 12/04/2023 7:09 AM CDT 12/04/2023 7:09 AM CDT us Jeremy Michelle MD LAB POCT ORDERABLES - DEVICE Final Result [facility] [place] [address] * Critical Care (12/04/2023 6:53 AM CDT) Narrative Kaley Anderson MD - 12/04/2023 6:53 AM CDT [...] plan with the ICU team and other medical/process consultant staff, making frequent assessments and decisions [...] deterioration of the following conditions: ?? us Len MCLEAN IN CLINIC/BEDSIDE ORDERA BLES Final Result * AK ARTL CATHJ/CANNULJ MNTR/TRANSFUSION SPX PRQ (12/04/2023 3:30 AM CDT) Narrative Tobi Garcia MD PhD - 12/04/2023 3:30 AM CDT Eduard Abel, ? 12/04/2023 ??3:31 AM Arterial Line Insertion Date/Time: 12/04/2023 3:30 AM Performed by: Eduard Abel DO Authorized by: Eduard Abel DO ?? [place] Protocol: RN Notified of Procedure: yes ?? [...] are accounted for: yes ?? Eduard Abel DO IV THERAPY ORDERABLE S Final Result * POCT glucose (12/04/2023 3:26 AM CDT) Pathologist [facility] Glucose, POC 104 70 - 199 mg/dL Blood 12/04/2023 3:26 AM CDT 12/04/2023 3:26 AM CDT Jeremy Michelle MD LAB POCT ORDERABLES - DEVICE Final Result Performing Organization Address [facility] Co de Phone Number [facility] [place] [address] * POCT glucose (12/03/2023 11:18 PM CDT) [facility] Glucose, POC 123 70 - 199 mg/dL Blood 12/03/2023 11:1 8 PM CDT 12/03/2023 11:18 PM CDT Jeremy Michelle MD LAB POCT ORDERABLES - DEVICE Final Result Performing Organization Address [facility] de Phone Number [facility] [place] [address] * ECG 12 lead (12/03/2023 11:04 PM CDT) [facility] Ventricular Rate EKG/Min 68 BPM [facility] Atrial Rate 68 BPM [facility] AK-Interval (MSEC) 192 ms [facility] QRS-Interval (MSEC) 116 ms [facility] QT-Interval (MSEC) 450 ms [facility] QTc 478 ms [facility] P [place] 37 degrees [facility] R [place] 3 degrees [facility] T [place] 164 degrees [facility] Diagnosis Sinus rhythm Left ventricular hypertrophy with repolarization abnormalities Cannot rule out Septal infarct , age undetermined Abnormal ECG Confirmed by Marcel Westfall MD ([id number]) on 12/10/2023 6:54:59 AM [facility] 12/03/2023 11:0 4 PM CDT 12/10/2023 6:54 AM CDT us Chinyere Abreu [employer] ECG ORDERABLES Geovanna l Result [facility] * Lactate (12/03/2023 10:59 PM CDT) Pathologist [facility] Lactate 1.3 0.7 - 2.0 mmol/L Blood 12/03/2023 10:5 9 PM CDT 12/03/2023 11:07 PM CDT us Jeremy Michelle MD LAB BLOOD ORDERABLES Final Result [facility] Department [place] [address] * (ABNORMAL) Blood gas, arterial (12/03/2023 10:59 PM CDT) pH, Art 7.35 7.35 - 7.45 PCO2, Arterial 45 35 - 45 mmHg [facility] PO2, Arterial 147(H) 83 - 108 mmHg [facility] HCO3 Art (Calculated) 25 20 - 30 mmol/L [facility] BE, art -1 mmol/L [facility] Comment: Interpretive Data No Reference Range Established Current Interpretive Data was last revised on 2017 O2 Sat Art (Measured) 100(H) 90 - 95 % [facility] Blood 12/03/2023 10:5 9 PM CDT 12/03/2023 11:04 PM CDT us Jeremy Michelle MD LAB BLOOD ORDERABLES Final Result [facility] Department [place] [address] * (ABNORMAL) POC Blood Gas and Chemistries, Arterial - (12/03/2023 10:46 PM CDT) pH, Art POC 7.38 7.35 - 7.45 pCO2, Art POC 49(H) 35 - 45 mmHg [facility] pO2, Art POC 81(L) 83 - 108 mmHg [facility] Na, POC 135 135 - 145 mmol/L [facility] K POC 3.8 3.3 - 4.9 mmol/L [facility] Comment: Interpretive Data Not all point of care methods assess for hemolysis. Confirm with instrument and retest K+ if not consistent with clinical signs and symptoms. Current Interpretive Data was last revised on 2023. Cl, POC 105 97 - 110 mmol/L [facility] Ionized Ca, POC 4.71 4.50 - 5.10 mg/dL [facility] Glucose, POC 141 70 - 199 mg/dL [facility] Lactate, POC 1.2 0.7 - 2.2 mmol/L [facility] SO2 (alexsander) arterial 99(H) 90 - 95 % [facility] Base excess, POC 3.2 mmol/L [facility] HCO3, Art POC 29 20 - 30 mmol/L [facility] Hct, POC 30.0(L) 36.3 - 45.3 % [facility] O2 Sat, Art POC (Calc) 96 % [facility] Total Hb, POC 9.9(L) 11.9 - 15.5 g/dL [facility] Blood 12/03/2023 10:4 6 PM CDT 12/03/2023 10:46 PM CDT us Jeremy Michelle MD LAB POCT ORDERABLES - DEVICE Final Result [facility] [place] [address] * ECG 12 lead (12/03/2023 10:40 PM CDT) Ventricular Rate EKG/Min 124 BPM [facility] QRS-Interval (MSEC) 116 ms [facility] QT-Interval (MSEC) 392 ms [facility] QTc 563 ms [facility] R [place] -5 degrees [facility] T [place] 169 degrees [facility] Diagnosis Atrial fibrillation with rapid ventricular response [...] LINDER M.D ([id number]) on 12/04/2023 11:59:35 AM [facility] 12/03/2023 10:4 0 PM CDT 12/04/2023 11:59 AM CDT us Jeremy Michelle MD ECG ORDERABLES Geovanna huynh Result [facility] * Critical Care (12/03/2023 10:19 PM CDT) [...] plan with the ICU team and other medical/process consultant staff, making frequent assessments and decisions [...] the following conditions: ?? us Juanito Sanchez [employer] IN CLINIC/BEDSIDE ORDER ROBERT Final Result * (ABNORMAL) Calcium, ionized (12/03/2023 9:09 PM CDT) Pathologist [facility] Calcium, Ionized 4.35(L) 4.50 - 5.10 mg/dL Blood 12/03/2023 9:09 PM CDT 12/03/2023 9:19 PM CDT us Jeremy Michelle MD LAB BLOOD ORDERABLES Final Result [facility] Department [place] [address] * (ABNORMAL) Differential, auto (12/03/2023 9:07 PM CDT) Pathologist [facility] Neutrophil abs 9.4(H) 1.5 - 6.5 K/cumm Imm gran abs 0.1 0.0 - 0.1 K/cumm [facility] Lymphocyte abs 1.4 0.8 - 3.3 K/cumm [facility] Monocyte abs 0.9(H) 0.2 - 0.8 K/cumm [facility] Eosinophil abs 0.4 0.0 - 0.5 K/cumm [facility] Basophil abs 0.1 0.0 - 0.1 K/cumm [facility] Neutrophil pct 77.4 % [facility] Comment: Interpretive Data Percent cell count reference ranges are not reported, since discordance with absolute values may lead to misinterpretation of CBC data. Current Interpretive Data was last revised on 2017. Imm gran pct 0.7 % [facility] Comment: Interpretive Data Percent cell count reference ranges are not reported, since discordance with absolute values may lead to misinterpretation of CBC data. Current Interpretive Data was last revised on 2017. Lymphocyte pct 11.2 % [facility] Comment: Interpretive Data Percent cell count reference ranges are not reported, since discordance with absolute values may lead to misinterpretation of CBC data. Current Interpretive Data was last revised on 2017. Monocyte pct 7.3 % [facility] Comment: Interpretive Data Percent cell count reference ranges are not reported, since discordance with absolute values may lead to misinterpretation of CBC data. Current Interpretive Data was last revised on 2017. Eosinophil pct 3.0 % [facility] Comment: Interpretive Data Percent cell count reference ranges are not reported, since discordance with absolute values may lead to misinterpretation of CBC data. Current Interpretive Data was last revised on 2017. Basophil pct 0.4 % [facility] Comment: Interpretive Data Percent cell count reference ranges are not reported, since discordance with absolute values may lead to misinterpretation of CBC data. Current Interpretive Data was last revised on 2017. Blood 12/03/2023 9:07 PM CDT 12/03/2023 9:19 PM CDT us Jeremy Michelle MD LAB BLOOD ORDERABLES Final Result [facility] [place] [address] * (ABNORMAL) CBC with auto differential (12/03/2023 9:07 PM CDT) WBC 12.2(H) 3.8 - 9.9 K/cumm Hgb 10.2(L) 11.9 - 15.5 g/dL [facility] Hct 29.4(L) 35.6 - 45.5 % [facility] Plt 180 150 - 400 K/cumm [facility] MPV 10.4 9.1 - 12.3 fL [facility] RBC 3.40(L) 3.90 - 5.20 M/cumm [facility] MCV 86.5 81.3 - 96.4 fL [facility] MCH 30.0 27.1 - 33.3 pg [facility] MCHC 34.7 32.3 - 35.7 g/dL [facility] RDW CV 15.1(H) 11.1 - 14.9 % [facility] RDW SD 48.3(H) 35.7 - 48.1 fL [facility] NRBC abs 0.00 0.00 - 0.01 K/cumm [facility] Blood 12/03/2023 9:07 PM CDT 12/03/2023 9:19 PM CDT us Jeremy Michelle MD LAB BLOOD ORDERABLES Final Result Performing Organization Address City/[facility] Co de Phone Number [facility] [place] [address] * (ABNORMAL) Troponin I high-sensitivity (12/03/2023 9:07 PM CDT) [facility] Trop I hs 94(H) <=17 ng/L Comment: Interpretive Data For further hscTnI resources including the diagnostic algorithm and an aid in interpretation, copy and paste this link: [email or web address] Current Interpretive Data last revised 2020. Blood 12/03/2023 9:07 PM CDT 12/03/2023 9:19 PM CDT us Jeremy Michelle MD LAB BLOOD ORDERABLES Final Result Performing Organization Address City/[facility]/ZIP Co de Phone Number [facility] Department [place] [address] * (ABNORMAL) Arterial Blood gas w/Lactate POCT (12/03/2023 9:06 PM CDT) [facility] Lactate POC i-STAT 0.7 0.7 - 2.2 mmol/L pH POC 7.41 7.35 - 7.45 [facility] pCO2, Art POC 40 35 - 45 mmHg [facility] PO2 POC 61(L) 80 - 105 mmHg [facility] CO2, total POC 26 20 - 30 mmol/L [facility] HCO3, POC 25 21 - 30 mmol/L [facility] BE POC 0 -2 - 3 mmol/L [facility] O2 sat POC 91(L) 95 - 98 % [facility] Blood 12/03/2023 9:06 PM CDT 12/03/2023 9:06 PM CDT us Jeremy Michelle MD LAB BLOOD ORDERABLES Final Result [facility] [place] [address] * eGFR (12/03/2023 9:05 PM CDT) eGFR [...] CDT 12/03/2023 9:35 PM CDT Latisha Retana [employer] LAB BLOOD ORDERABLES Fin al Result Performing Organization Address [facility] de Phone Number [facility] [place] [address] * Magnesium (12/03/2023 9:05 PM CDT) Pathologist [facility] Magnesium 2.2 1.4 - 2.5 mg/dL Blood 12/03/2023 9:05 PM CDT 12/03/2023 9:35 PM CDT Jeremy Michelle MD LAB BLOOD ORDERABLES Final Result Performing Organization Address [facility] Phone Number [facility] [place] [address] * Bilirubin, direct (12/03/2023 9:05 PM CDT) [facility] Bilirubin, direct <0.2 0.1 - 0.3 mg/dL Blood 12/03/2023 9:05 PM CDT 12/03/2023 9:35 PM CDT Latisha Retana [employer] LAB BLOOD ORDERABLES Fin al Result Performing Organization Address [facility] de Phone Number [facility] [place] [address] * (ABNORMAL) Comprehensive metabolic panel (12/03/2023 9:05 PM CDT) Pathologist [facility] Sodium 137 135 - 145 mmol/L Potassium, pl 4.3 3.3 - 4.9 mmol/L [facility] Comment:Hemolyzed; Potassium value may be falsely elevated by as much as 0.3-0.5 mmol/L. Suggest redraw and reanalysis. Chloride 104 97 - 110 mmol/L [facility] CO2 26 22 - 32 mmol/L [facility] Anion gap 7 2 - 15 mmol/L [facility] BUN 14 6 - 25 mg/dL [facility] Creatinine 0.80 0.60 - 1.10 mg/dL [facility] Glucose 110 70 - 199 mg/dL [facility] Comment: Interpretive Data Fasting glucose >/= [...] 2022. Calcium 8.1(L) 8.5 - 10.3 mg/dL [facility] Bilirubin, total 0.6 0.1 - 1.2 mg/dL [facility] Protein, pl 5.6(L) 6.5 - 8.5 g/dL [facility] Albumin 3.2(L) 3.5 - 5.0 g/dL [facility] Alk phos 99 40 - 130 Units/L [facility] ALT 131(H) 7 - 45 Units/L [facility] AST 197(H) 10 - 45 Units/L [facility] Comment:Hemolyzed; result ma y be falsely elevated Blood 12/03/2023 9:05 PM CDT 12/03/2023 9:35 PM CDT us Latisha Retana [employer] LAB BLOOD ORDERABLES Fin al Result [facility] [place] [address] * ECG 12 lead (12/03/2023 8:04 PM CDT) Pathologist [facility] Ventricular Rate EKG/Min 141 BPM [facility] Atrial Rate 133 BPM [facility] QRS-Interval (MSEC) 118 ms [facility] QT-Interval (MSEC) 370 ms [facility] QTc 566 ms [facility] R [place] 13 degrees [facility] T [place] 202 degrees [facility] Diagnosis Atrial fibrillation with a rapid ventricular response Non-specific intra-ventricular conduction delay Marked ST abnormality, possible inferolateral subendocardial injury Abnormal ECG When compared with ECG of 03-DEC-2023 19:50, (unconfirmed) Non-specific intra-ventricular conduction delay has replaced Incomplete left bundle branch block Confirmed by STAN CARABALLO M.D ([id number]) on 12/04/2023 10:12:50 AM [facility] 12/03/2023 8:04 PM CDT 12/04/2023 10:12 AM CDT Chinyere Abreu NP ECG ORDERABLES Geovanna l Result Performing Organization Address [facility] de Phone Number [facility] * ECG 12 lead (12/03/2023 7:50 PM CDT) Ventricular Rate EKG/Min 162 BPM [facility] Atrial Rate 150 BPM [facility] QRS-Interval (MSEC) 114 ms [facility] QT-Interval (MSEC) 334 ms [facility] QTc 548 ms [facility] R [place] 21 degrees [facility] T [place] 201 degrees [facility] Diagnosis Atrial fibrillation with a rapid ventricular response Incomplete left bundle branch block Marked ST abnormality, possible inferior subendocardial injury Marked ST abnormality, possible anterolateral subendocardial injury Abnormal ECG When compared with ECG of 03-DEC-2023 14:16, (unconfirmed) Significant changes have occurred Confirmed by STAN CARABALLO M.D ([id number]) on 12/04/2023 10:11:40 AM [facility] 12/03/2023 7:50 PM CDT 12/04/2023 10:11 AM CDT Chinyere Abreu NP ECG ORDERABLES Geovanna l Result Performing Organization Address [facility] Co de Phone Number [facility] * Phosphorus (12/03/2023 3:08 PM CDT) Phosphorus, pl 2.3 2.3 - 4.5 mg/dL Blood 12/03/2023 3:08 PM CDT 12/03/2023 3:56 PM CDT Dalia Muhammad [employer] LAB BLOOD ORDERABLES Final Resu lt Performing Organization Address [facility] Co de Phone Number [facility] [place] [address] * Magnesium (12/03/2023 3:08 PM CDT) Pathologist [facility] Magnesium 2.2 1.4 - 2.5 mg/dL Blood 12/03/2023 3:08 PM CDT 12/03/2023 3:56 PM CDT Dalia Muhammad LAB BLOOD ORDERABLES Final Resu lt Performing Organization Address [facility] de Phone Number [facility] [place] [address] * ECG 12 lead (12/03/2023 2:16 PM CDT) Pathologist [facility] Ventricular Rate EKG/Min 74 BPM [facility] Atrial Rate 74 BPM [facility] AK-Interval (MSEC) 170 ms [facility] QRS-Interval (MSEC) 112 ms [facility] QT-Interval (MSEC) 428 ms [facility] QTc 475 ms [facility] P [place] 106 degrees [facility] R [place] 4 degrees [facility] T [place] 170 degrees [facility] Diagnosis Normal sinus rhythm Left ventricular hypertrophy with repolarization abnormality Abnormal ECG When compared with ECG of 27-JUL-2020 09:57, ST no longer depressed in Anterior leads T wave inversion less evident in Inferior leads T wave inversion more evident in Lateral leads Confirmed by BONNIE LINDER M.D ([id number]) on 12/04/2023 11:56:34 AM [facility] 12/03/2023 2:16 PM CDT 12/04/2023 11:56 AM CDT us Len Klein PA ECG ORDERABLES Final Re sult [facility] * eGFR (12/03/2023 3:53 AM CDT) eGFR >90 >=60 mL/min/1. 73 [...] 12/03/2023 4:35 AM CDT us Latisha Retana [employer] LAB BLOOD ORDERABLES Fin al Result Performing Organization Address City/[facility]/ZIP Co de Phone Number [facility] [place] [address] * (ABNORMAL) Comprehensive metabolic panel (12/03/2023 3:53 AM CDT) Sodium 141 135 - 145 mmol/L Potassium, pl 4.2 3.3 - 4.9 mmol/L [facility] Chloride 109 97 - 110 mmol/L [facility] CO2 28 22 - 32 mmol/L [facility] Anion gap 4 2 - 15 mmol/L [facility] BUN 12 6 - 25 mg/dL [facility] Creatinine 0.65 0.60 - 1.10 mg/dL [facility] Glucose 132 70 - 199 mg/dL [facility] Comment: Interpretive Data Fasting glucose >/= [...] 2022. Calcium 7.7(L) 8.5 - 10.3 mg/dL [facility] Bilirubin, total 0.5 0.1 - 1.2 mg/dL [facility] Protein, pl 5.4(L) 6.5 - 8.5 g/dL [facility] Albumin 3.3(L) 3.5 - 5.0 g/dL [facility] Alk phos 95 40 - 130 Units/L [facility] ALT 183(H) 7 - 45 Units/L [facility] AST 218(H) 10 - 45 Units/L [facility] Blood 12/03/2023 3:53 AM CDT 12/03/2023 4:35 AM CDT us Latisha Retana [employer] LAB BLOOD ORDERABLES Fin al Result [facility] Department [place] [address] * (ABNORMAL) CBC without differential (12/03/2023 3:53 AM CDT) Pathologist [facility] WBC 11.4(H) 3.8 - 9.9 K/cumm Hgb 10.3(L) 11.9 - 15.5 g/dL [facility] Hct 30.6(L) 35.6 - 45.5 % [facility] Plt 195 150 - 400 K/cumm [facility] MPV 9.9 9.1 - 12.3 fL [facility] RBC 3.54(L) 3.90 - 5.20 M/cumm [facility] MCV 86.4 81.3 - 96.4 fL [facility] MCH 29.1 27.1 - 33.3 pg [facility] MCHC 33.7 32.3 - 35.7 g/dL [facility] RDW CV 15.1(H) 11.1 - 14.9 % [facility] RDW SD 48.3(H) 35.7 - 48.1 fL [facility] NRBC abs 0.00 0.00 - 0.01 K/cumm [facility] Blood 12/03/2023 3:53 AM CDT 12/03/2023 4:35 AM CDT us Latisha Retana [employer] LAB BLOOD ORDERABLES Fin al Result [facility] Department [place] [address] * (ABNORMAL) aPTT (12/03/2023 3:53 AM CDT) Pathologist [facility] aPTT 26(L) 28 - 38 sec Comment: Interpretive Data Heparin therapeutic range: 66.0 - 100.0 seconds. Range based on correlation with therapeutic heparin activity range of 0.3 - 0.7 Units/mL. Current interpretive data was last revised on 2023. Blood 12/03/2023 3:53 AM CDT 12/03/2023 4:53 AM CDT Latisha Retana [employer] LAB BLOOD ORDERABLES Fin al Result Performing Organization Address [facility] de Phone Number [facility] Department [place] [address] * Protime-INR (12/03/2023 3:53 AM CDT) PT 11.9 10.3 - 13.7 sec INR 1.04 0.90 - 1.20 [facility] Comment: Interpretive data Oral anticoagulant therapeutic ranges: Venous thromboembolism prophylaxis or treatment: 2.0-3.0 CARDIOLOGY Standard range: 2.0-3.0 High-intensity range: 2.5-3.5 Refer to indication-specific guidelines for appropriate target ranges for prosthetic heart valve replacement. Current interpretive data was last revised on 2019. Blood 12/03/2023 3:53 AM CDT 12/03/2023 4:53 AM CDT Latisha Retana [employer] LAB BLOOD ORDERABLES Fin al Result Performing Organization Address [facility] de Phone Number [facility] [place] [address] * eGFR (12/02/2023 6:26 PM CDT) eGFR [...] CDT 12/02/2023 6:39 PM CDT Latisha Retana [employer] LAB BLOOD ORDERABLES Fin al Result Performing Organization Address [facility] Co de Phone Number [facility] [place] [address] * aPTT (12/02/2023 6:26 PM CDT) aPTT 28 28 - 38 sec Comment: Interpretive Data Heparin therapeutic range: 66.0 - 100.0 seconds. Range based on correlation with therapeutic heparin activity range of 0.3 - 0.7 Units/mL. Current interpretive data was last revised on 2023. Blood 12/02/2023 6:26 PM CDT 12/02/2023 6:36 PM CDT Latisha Retana [employer] LAB BLOOD ORDERABLES Fin al Result Performing Organization Address City/[facility] Co de Phone Number [facility] [place] [address] * Protime-INR (12/02/2023 6:26 PM CDT) PT 12.3 10.3 - 13.7 sec INR 1.08 0.90 - 1.20 [facility] Comment: Interpretive data Oral anticoagulant therapeutic ranges: Venous thromboembolism prophylaxis or treatment: 2.0-3.0 CARDIOLOGY Standard range: 2.0-3.0 High-intensity range: 2.5-3.5 Refer to indication-specific guidelines for appropriate target ranges for prosthetic heart valve replacement. Current interpretive data was last revised on 2019. Blood 12/02/2023 6:26 PM CDT 12/02/2023 6:36 PM CDT us Latisha Retana [employer] LAB BLOOD ORDERABLES Fin al Result [facility] Department [place] [address] * (ABNORMAL) Basic metabolic panel (12/02/2023 6:26 PM CDT) Sodium 142 135 - 145 mmol/L Potassium, pl 4.2 3.3 - 4.9 mmol/L [facility] Chloride 111(H) 97 - 110 mmol/L [facility] CO2 26 22 - 32 mmol/L [facility] Anion gap 5 2 - 15 mmol/L [facility] BUN 14 6 - 25 mg/dL [facility] Creatinine 0.63 0.60 - 1.10 mg/dL [facility] Glucose 148 70 - 199 mg/dL [facility] Comment: Interpretive Data Fasting glucose >/= [...] 2022. Calcium 8.1(L) 8.5 - 10.3 mg/dL [facility] Blood 12/02/2023 6:26 PM CDT 12/02/2023 6:39 PM CDT Latisha Retana [employer] LAB BLOOD ORDERABLES Fin al Result Performing Organization Address [facility] Co de Phone Number [facility] [place] [address] * (ABNORMAL) CBC without differential (12/02/2023 6:26 PM CDT) WBC 15.0(H) 3.8 - 9.9 K/cumm Hgb 11.3(L) 11.9 - 15.5 g/dL [facility] Hct 34.4(L) 35.6 - 45.5 % [facility] Plt 249 150 - 400 K/cumm [facility] MPV 9.7 9.1 - 12.3 fL [facility] RBC 3.93 3.90 - 5.20 M/cumm [facility] MCV 87.5 81.3 - 96.4 fL [facility] MCH 28.8 27.1 - 33.3 pg [facility] MCHC 32.8 32.3 - 35.7 g/dL [facility] RDW CV 15.2(H) 11.1 - 14.9 % [facility] RDW SD 48.8(H) 35.7 - 48.1 fL [facility] NRBC abs 0.00 0.00 - 0.01 K/cumm [facility] Blood 12/02/2023 6:26 PM CDT 12/02/2023 6:41 PM CDT Latisha Retana [employer] LAB BLOOD ORDERABLES Fin al Result Performing Organization Address [facility]/ZIP Co de Phone Number [facility] [place] [address] * (ABNORMAL) POC Blood Gas and Chemistries, Arterial - (12/02/2023 4:29 PM CDT) pH, Art POC 7.38 7.35 - 7.45 pCO2, Art POC 43 35 - 45 mmHg [facility] pO2, Art POC 190(H) 83 - 108 mmHg [facility] Na, POC 140 135 - 145 mmol/L [facility] K POC 3.7 3.3 - 4.9 mmol/L [facility] Comment: Interpretive Data Not all point of care methods assess for hemolysis. Confirm with instrument and retest K+ if not consistent with clinical signs and symptoms. Current Interpretive Data was last revised on 2023. Cl, POC 108 97 - 110 mmol/L [facility] Ionized Ca, POC 4.36(L) 4.50 - 5.10 mg/dL [facility] Glucose, POC 128 70 - 199 mg/dL [facility] Lactate, POC 1.6 0.7 - 2.2 mmol/L [facility] SO2 (alexsander) arterial 100(H) 90 - 95 % [facility] Base excess, POC 0.1 mmol/L [facility] HCO3, Art POC 25 20 - 30 mmol/L [facility] Hct, POC 35.0(L) 36.3 - 45.3 % [facility] O2 Sat, Art POC (Calc) 100 % [facility] Total Hb, POC 11.7(L) 11.9 - 15.5 g/dL [facility] Blood 12/02/2023 4:29 PM CDT 12/02/2023 4:29 PM CDT us Jeremy Michelle MD LAB POCT ORDERABLES - DEVICE Final Result [facility] [place] [address] * XR Scoliosis Ap Lat (12/02/2023 4:20 [...] 1 Hour (12/02/2023 3:02 PM CDT) Narrative [facility] - 12/02/2023 3:04 PM CDT The images [...] Report Final Report: Rare Staphylococcus epidermidis (.) [facility] Organism STAPHYLOCOCCUS EPIDERMIDIS [facility] Tissue (Back) 12/02/2023 2:0 7 PM CDT 12/02/2023 8:46 PM CDT Narrative [facility] - 01/06/2024 4:53 PM CDT L1 Pedicle Specimen collected in the operating room. Testing performed by [facility] ([phone]) Specimens submitted from normally sterile body sites [...] us Jeremy Michelle MD LAB MICROBIOLOGY - [facility] ORDERABLES Final Result [facility] [place] [address] * (ABNORMAL) POC Blood Gas and Chemistries, Arterial - (12/02/2023 12:52 PM CDT) pH, Art POC 7.44 7.35 - 7.45 pCO2, Art POC 41 35 - 45 mmHg [facility] pO2, Art POC 185(H) 83 - 108 mmHg [facility] Na, POC 142 135 - 145 mmol/L [facility] K POC 2.6(L) 3.3 - 4.9 mmol/L [facility] Comment: Interpretive Data Not all point of care methods assess for hemolysis. Confirm with instrument and retest K+ if not consistent with clinical signs and symptoms. Current Interpretive Data was last revised on 2023. Cl, POC 105 97 - 110 mmol/L [facility] Ionized Ca, POC 4.23(L) 4.50 - 5.10 mg/dL [facility] Glucose, POC 110 70 - 199 mg/dL [facility] Lactate, POC 1.6 0.7 - 2.2 mmol/L [facility] SO2 (alexsander) arterial 100(H) 90 - 95 % [facility] Base excess, POC 3.3 mmol/L [facility] HCO3, Art POC 28 20 - 30 mmol/L [facility] Hct, POC 39.0 36.3 - 45.3 % [facility] O2 Sat, Art POC (Calc) 100 % [facility] Total Hb, POC 13.1 11.9 - 15.5 g/dL [facility] Blood 12/02/2023 12:5 2 PM CDT 12/02/2023 12:52 PM CDT Jeremy Michelle MD LAB POCT ORDERABLES - DEVICE Final Result Performing Organization Address City/[facility]/ZIP Co de Phone Number [facility] [place] [address] * Type and screen (12/02/2023 8:24 AM CDT) ABO Rh A Negative Jake, indirect Negative [facility] Blood 12/02/2023 8:24 AM CDT 12/02/2023 8:34 AM CDT Narrative [facility] - 12/02/2023 9:26 AM CDT Has the patient had Daratumumab or Isatuximab in the past 6 months?->Unknown Steve Hedrick MD LAB BLOOD BANK TEST ORDERA BLES Final Result [facility] [place] [address] documented in this encounter Visit Diagnoses Diagnosis 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 Paroxysmal atrial fibrillation (CMS/HCC) (HCC) Atrial fibrillation Apical variant hypertrophic cardiomyopathy (HCC) Atrial fibrillation with RVR (CMS/HCC) (HCC) Fusion of spine of lumbar region Essential hypertension Unspecified essential hypertension Dyslipidemia Other and unspecified hyperlipidemia ICD (implantable cardioverter-defibrillator), dual, in situ Major depressive disorder, single episode, moderate (HCC) Major depressive disorder, single episode, moderate Paroxysmal atrial fibrillation (CMS/HCC) (HCC) Atrial fibrillation Chronic nonseasonal allergic rhinitis due to pollen 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 documented in this encounter Admitting Diagnoses Diagnosis [...] Given 12/14/2023 3:02 AM CDT 1,000 mg alendronate (FOSAMAX) weekly tablet 70 mg [...] Given 12/06/2023 10:30 PM CDT 70 mg amiodarone (PACERONE) tablet 200 mg 200 mg, oral, Daily, First dose on Tu12/15/23 at 0900 amiodarone (PACERONE) tablet 400 mg 400 mg, oral, 2 times daily, First dose on Thu12/12/23 at 0900, For 3 days Given 12/14/2023 8:50 AM CDT 400 mg Given 12/13/2023 9:06 PM CDT 400 mg Given 12/13/2023 8:47 AM CDT 400 mg atorvastatin (LIPITOR) tablet 40 mg 40 mg, oral, Nightly, First dose on Thu12/07/23 at 2100 Given 12/13/2023 9:05 PM CDT 40 mg Given 12/12/2023 8:55 PM CDT 40 mg Given 12/11/2023 9:39 PM CDT 40 mg bisacodyL (DULCOLAX) suppository 10 mg 10 mg, rectal, Daily, First dose on Thu12/02/23 at 2100, Hold for diarrhea, Indications: constipationIndications:constipation Given 12/14/2023 8:51 AM CDT 10 mg Given 12/05/2023 8:41 AM CDT 10 mg Given 12/04/2023 9:20 AM CDT 10 mg Carrier Fluids for Secondary Infusion - 0.9% Sodium Chloride 30 mL, intravenous, As needed, For priming tubing and/or flushing, Starting on Thu12/02/23 at 2019, 0-250 ml/hr to flush line after IV infusions when no maintenance IV ordered. Infuse 30mL at the same rate as the secondary infusion. Run as primary IV, not intended for KVO. Given 12/03/2023 8:57 PM CDT 30 mL cholecalciferol (VITAMIN D-3) capsule 2,000 Units 2,000 Units, oral, Every morning, First dose on Thu12/03/23 at 0900, Each capsule contains 1,000 units (25 mcg) of cholecalciferol., Indications: supplementIndications:supplement Given 12/14/2023 8:50 AM CDT 2,000 Units Given 12/13/2023 8:47 AM CDT 2,000 Units Given 12/12/2023 8:29 AM CDT 2,[address] (CYMBALTA) extended release capsule 60 [...] Le ft Lower Abdomen furosemide (LASIX) tablet 40 mg 40 mg, oral, 2 times daily (for diuretics), First dose on Thu12/09/23 at 1200 Given 12/14/2023 8:50 AM CDT 40 mg Given 12/13/2023 3:05 PM CDT 40 mg Given 12/13/2023 8:47 AM CDT 40 mg lidocaine (ASPERCREME) 4 % patch 2 patch 2 patch, transdermal, Administer over 12 Hours, Daily, First dose on Thu12/06/23 at 0900, Apply to affected area: back Medication Applied 12/14/2023 8:51 AM CDT 2 patches Other (Comment) Medication Applied 12/13/2023 8:57 AM CDT 2 patches Back Medication Applied 12/11/2023 8:51 AM CDT 2 patches Back methocarbamoL (ROBAXIN) tablet 750 mg 750 mg, [...] Given 12/13/2023 8:47 AM CDT 25 mg multivitamin with folic acid 400 mcg tablet 1 tablet 1 tablet, oral, Daily, First dose on Thu12/02/23 at 2100 Given 12/14/2023 8:51 AM CDT 1 tablet Given 12/13/2023 8:47 AM CDT 1 tablet Given 12/12/2023 8:28 AM CDT 1 tablet ondansetron (ZOFRAN) injection 4 mg 4 mg, intravenous, Administer over 2 Minutes, Every 6 hours PRN, nausea, vomiting, Starting on Thu12/02/23 at 2019, Proceed to prochlorperazine if no relief within 30 minutes. , Indications: Nausea and VomitingIndications:Nausea and Vomiting Given 12/08/2023 1:51 PM CDT 4 mg Given 12/05/2023 6:59 PM CDT 4 mg oxyCODONE (ROXICODONE) tablet 7.5 mg 7.5 [...] Given 12/12/2023 8:29 AM CDT 40 mg ramelteon (ROZEREM) tablet 8 mg 8 mg, oral, Nightly, First dose on Thu12/07/23 at 2100, Indications: Sleep-Onset InsomniaIndications:Sleep-Onset Insomnia Given 12/13/2023 9:06 PM CDT 8 m g Given 12/12/2023 8:54 PM CDT 8 mg [...] PM CDT 80 mg sodium chloride 0.9% flush 0.5-20 mL 0.5-20 mL, intra-catheter, Every 8 hours scheduled, First dose on Thu12/02/23 at 2200, Flush volume based on line type and size. , Indications: FlushingIndications:Flushing Given 12/14/2023 5:17 AM CDT 3 mL Given 12/13/2023 9:06 PM CDT 10 mL Given 12/12/2023 8:56 PM CDT 10 mL sodium chloride 0.9% irrigation As needed, Starting on Thu12/02/23 at 1150, Intra-Op Given 12/02/2023 11:51 AM CDT 3,000 mL Surgical Site Given 12/02/2023 11:50 AM CDT 1,000 mL S urgical Site vancomycin (VANCOCIN) solution As needed, Starting on Thu12/02/23 at 1656, Intra-Op Given 12/02/2023 4:56 PM CDT 2,000 mg Surgical Site documented in this encounter Discontinued Medications Medication [...] Kaylynn Armendariz RN)0828 (Given - Provider: Collette Jackson RN)1539 (Given - Provider: Collette Jackson RN)2054 (Given - Provider: Kaylynn Armendariz RN) 0359 (Given - Provider: Kaylynn Armendariz RN)0847 (Given - Provider: Collette Jackson RN)1504 (Given - Provider: Collette Jackson RN)2104 (Given - Provider: Kaylynn Armendariz RN) 0302 (Given - Provider: Kaylynn Armendariz [...] Armendariz RN) 0850 (Given - Provider: Marcelina Watt RN) atorvastatin (LIPITOR) tablet 40 mg 40 mg, oral, Nightly, First dose on Thu12/07/23 at 2100 2054 (Given - Provider: Kaylynn Armendariz RN) 2104 (Given - Provider: Kaylynn Armendariz, MEDINA) bisacodyL (DULCOLAX) suppository 10 mg 10 mg, [...] Thrombosis Prevention 2054 (Given - Provider: Kaylynn Armendariz, MEDINA) 2106 (Given - Provider: Kaylynn Armendariz RN) furosemide (LASIX) tablet 40 mg 40 mg, oral, 2 times daily (for diuretics), First dose on Thu12/09/23 at 1200 0826 (Given - Provider: Collette Jackson RN)1539 (Given - Provider: Collette Jackson RN) 0847 (Given - Provider: Collette Jackson RN)1505 (Given - Provider: Collette Jackson RN) 0850 (Given - Provider: Marcelina Watt, RN)1600 (Due) lidocaine (ASPERCREME) 4 % patch 2 [...] Armendariz RN)0847 (Given - Provider: Collette Jackson, MEDINA)1641 (Given - Provider: Collette Jackson RN) 0052 (Given - Provider: Kaylynn Armendariz RN)0850 (Given - Provider: Marcelina Watt, MEDINA)1645 (Due) metoprolol tartrate (LOPRESSOR) immediate release tablet 25 mg 25 mg, oral, 2 times daily, First dose on Thu12/09/23 at 0900 0829 (Given - Provider: Collette Jackson RN)2055 (Given - Provider: Kaylynn Armendariz RN) 0847 (Given - Provider: Collette Jackson RN)2105 (Given - Provider: Kaylynn Armendariz RN) 0850 (Given - Provider: Marcelina Watt, MEDINA) multivitamin with folic acid 400 mcg tablet 1 tablet 1 tablet, oral, Daily, First dose on Thu12/02/23 at 2100 0828 (Given - Provider: Collette aJckson RN) 0847 (Given - Provider: Collette Jackson [...] Provider: Kaylynn Armendariz RN)1430 (Given - Provider: Collette Jackson RN)2055 (Given [...] milk of magnesia, Starting on Thu12/02/23 at 2019, Do not crush, chew, cut, dissolve, open [...] needed, rhinitis, allergies, Starting on Thu12/02/23 at 2019, Indications: Allergic Rhinitis magnesium hydroxide (MILK OF MAGNESIA) 80 mg/mL (33.3 mg/mL as elemental magnesium) oral suspension 30 mL 30 mL, oral, Daily PRN, constipation, Starting on Thu12/02/23 at 2018 mineral oil (FLEET MINERAL OIL) enema 133 mL 133 mL (1 enema), rectal, Daily PRN, constipation, if no results 24 hours after bisacodyl, Starting on Thu12/02/23 at 2019, Indications: constipation ondansetron (ZOFRAN) injection 4 mg 4 mg, intravenous, Administer over 2 Minutes, Every 6 hours PRN, nausea, vomiting, Starting on Thu12/02/23 at 2019, Proceed to prochlorperazine if no relief within 30 minutes. , Indications: Nausea and Vomiting oxyCODONE (ROXICODONE) tablet 5 mg (CANCELED) 5 mg, oral, Every 4 hours PRN, 2nd line for pain, Starting on 12/12/23 at 1156, Indications: Pain 1210 (Given - [...] pain, Starting on Thu12/13/23 at 1058, Indications: Pain 1256 (Given - Provider: Collette Jackson, MEDINA)1707 (Given - Provider: Collette Jackson, RN)2106 (Given - Provider: Kaylynn Armendariz RN) 0052 (Given - Provider: Kaylynn Armendariz RN)0517 (Given - Provider: Kaylynn Armendariz RN)0850 (Given [...] daily, First dose (after last modification) on 12/07/23 at 0900, For 5 days Followed by [...] Count Last Ordered Date First Ordered Date oxyCODONE (ROXICODONE) tablet 7.5 mg 3 11/2412/05/2023 oxyCODONE (ROXICODONE) tablet 5 mg 3 202312/02/2023 furosemide (LASIX) tablet 40 mg 3 4 12/02/2023 metoprolol tartrate (LOPRESS OR) immediate release tablet 25 mg 2 12/08/2023 12/02/2023 amiodarone (NEXTERONE) 150 m g/100 mL (1.5 mg/mL) in dextrose (premix) 150 mg 5 12/07/202312/02 amiodarone (PACERONE) tablet 200 mg 1 12/06 amiodarone (PACERONE) tablet 400 mg 4 12/0612/04/2023 atorvastatin (LIPITOR) tablet 40 mg 1 12/06 Lactated Ringer's (LR) bolus 1,000 mL 2 12/03/2023 magnesium sulfate 2 g/50 mL in water (premix) 2 g 5 12/07/2023 12/03/2023 methocarbamoL (ROBAXIN) tablet 750 mg 2 12/04/2023 ramelteon (ROZEREM) tablet 8 mg 1 calcium gluconate 3 g in sod ium chloride 0.9% 100 mL IVPB 3 12/06/2023 12/03/2023 lidocaine (ASPERCREME) 4 % patch 2 patch 1 12/06/2023 methocarbamoL (ROBAXIN) tablet 500 mg 1 06/2024 metoprolol tartrate immediat e release capsule 6.25 mg 1 12/06/2023 simethicone (MYLICON) chewab le tablet 80 mg 1 12/06/2023 amiodarone in dextrose (NEXT ERONE) 360 mg/200 mL (1.8 mg/mL) infusion (premix) 5 12/05/2023 12/03/2023 Lactated Ringer's (LR) bolus 500 mL 2 12/0412/03/2023 potassium chloride (KLOR-CON ) packet 20 mEq 1 12/05/2023 potassium chloride (KLOR-CON ) packet 40 mEq 1 12/05/2023 potassium chloride 20 mEq/26 0 mL in sodium chloride 0.9% (premix) 20 mEq 1 12/05/2023 acetaminophen (TYLENOL) tablet 1,000 mg 3 0 12/04/2023 12/02/2023 baclofen (LIORESAL) tablet 2.5 mg 1 024 dextrose 5% and Lactated Ringer's infusion 2 12/04/2023 12/03/2023 enoxaparin (LOVENOX) syringe 40 mg 1 2023 furosemide (LASIX) tablet 20 mg 3 4 12/03/2023 HYDROmorphone (DILAUDID) injection 0.2 mg 4 12/04/2023 12/02/2023 magnesium sulfate 4 g/100 mL in water (premix) 4 g 1 12/04/2023 norepinephrine in dextrose 5 % (LEVOPHED) 8,000 mcg/250 mL (32 mcg/mL) infusion (premix) 5 12/04/2023 12/03/2023 perflutren protein-a (OPTISO N) 3 mL in sodium chloride 0.9% 8 mL syringe 1 12/04/2023 potassium phosphates 30 mmol in sodium chloride 0.9% 500 mL IVPB 1 12/04/2023 potassium, sodium phosphates (PHOS-NAK) 280-160-250 mg packet 2 packet 1 12/04/2023 acetaminophen (TYLENOL) tablet 500 mg 1 03/2024 aspirin tablet 325 mg 1 12/03/2023 baclofen (LIORESAL) tablet 5 mg 2 4 12/02/2023 dextrose (D10W) 10% bolus 250 mL 1 12/03/19 24 dextrose 5% and sodium chlor josephine 0.9% infusion (premix) 2 12/03/2023 12/02/2023 dextrose gel in packet 15 g 12/03/2023 glucagon injection 1 mg 1 12/03/2023 HYDROmorphone (DILAUDID) injection 0.5 mg 1 12/03/2023 insulin lispro (HumaLOG, ADM ELOG) 100 unit/mL injection 1-5 Units 1 12/03/2023 ketorolac (TORADOL) 15 mg/mL injection 15 mg 12/03/2023 LORazepam (ATIVAN) injection 2 mg 1 metoprolol (LOPRESSOR) 5 mg/ 5 mL injection - ADS Override Pull 12/03/2023 metoprolol (LOPRESSOR) injection 5 mg 03/2024 nitroglycerin (NITROSTAT) nettles blingual tablet 0.4 mg 1 12/03/2023 potassium chloride 40 mEq/52 0 mL in sodium chloride 0.9% (premix) 40 mEq 2 12/03/2023 12/02/2023 sodium chloride 0.9% bolus 500 mL sodium chloride 0.9% solution 12/03/2023 alendronate (FOSAMAX) weekly tablet 70 mg 12/02/2023 ALPRAZolam (XANAX) tablet 0.25 mg 1 bisacodyL (DULCOLAX) suppository 10 mg 1 bisacodyl EC (DULCOLAX EC) tablet 10 mg 1 0 12/02/2023 Carrier Fluids for Secondary Infusion - 0.9% Sodium Chloride 2 12/02/2023 ceFAZolin (ANCEF) 1 gram/10 mL in sterile water (premix) 1,000 mg 1 12/02/2023 cholecalciferol (VITAMIN D-3 ) capsule 2,000 Units 12/02/2023 dilTIAZem XR (CARDIZEM CD,DI LACOR XR) 24 hour capsule 180 mg 1 12/02/2023 doxepin (SINEquan) capsule 25 mg 12/02/[address] (CYMBALTA) ext ended release capsule 60 mg 12/02/2023 fentaNYL (SUBLIMAZE) preserv ative free injection 50 mcg 1 12/02/2023 fluticasone propionate (FLON ASE) 50 mcg/actuation nasal spray 1 spray 1 12/02/2023 HYDROmorphone (DILAUDID) injection 0.4 mg 1 12/02/2023 HYDROmorphone in 0.9% sodium chloride (DILAUDID) 20 mg/100 mL (0.2 mg/mL) (premix) 1 12/02/2023 Lactated Ringer's (LR) infusion 1 magnesium hydroxide (MILK OF MAGNESIA) 80 mg/mL (33.3 mg/mL as elemental magnesium) oral suspension 30 mL 1 12/02/2023 mineral oil (FLEET MINERAL O IL) enema 133 mL 1 12/02/2023 multivitamin with folic acid 400 mcg tablet 1 tablet 1 12/02/2023 naloxone (NARCAN) 0.4 mg/mL injection 0.04-0.4 mg 2 12/02/2023 ondansetron (ZOFRAN) injection 4 mg 1 12/[address] (PROTONIX) e xtended release tablet 40 mg 1 12/02/2023 prochlorperazine (COMPAZINE) injection 5 mg 1 12/02/2023 senna-docusate (PERICOLACE) 8.6-50 mg per tablet 2 tablet 1 12/02/2023 sodium chloride 0.9% flush 0.5-20 mL 3 02/2024 vancomycin 1,000 mg/200 mL i n dextrose 5% (premix) 1,000 mg 1 12/02/2023 Lab Orders Without Results Count [...] documented as of this encounter Care Teams Packing Room Inspector Relationship Specialty Start Date End Date Enmanuel Gan MD [address] [place] [address] PCP - General Internal Medicine 04/26/20 Tg Houston MD [address] [place] [address] Consulting Physician Cardiology 07/18/20 Guerrero Hunter DPT [address] [facility] [address] [place] [address] Physical Therapist Physical Therapy 11/08/20 Guerrero Weiner, SOFA INSPECTOR [address] [facility] [address] [place] [address] Obstetric Assistant Physical Therapy 12/12/20 Stephen Talbert MD [address] [facility] [address] [place] [address] Referring Physician Transplant 10/19/23 documented as of this encounter
--- OUTSIDE RECORDS SUMMARY | 2024-07-12 08:43 | XMS_ITS | Encounter Summary ---
Author Organization [facility] Healthcare Address [address] [place] [address] Care Team Providers Care Residential Advisor Name Role Phone Enmanuel Gan MD Primary Care Provider [phone] Tg Houston MD Unavailable [phone] Guerrero Hunter DPT Unavailable [phone] Guerrero Weiner ASP DEVELOPER Unavailable [phone] Encounter Details Date Type Department Care Team (Latest Contact Info) Description 09/29/2023 1:47 PM RE EXAMINER - 09/29/2023 11:59 PM RE EXAMINER Hospital Encounter [facility] [address] [place] [address] ICD (implantable cardioverter-defibr illator), dual, in situ; NICM (nonischemic cardiomyopathy) (CMS/HCC) ([facility]) Discharge Disposition: Discharge to home or self [...] often do you attend chur ch or latter-day services? Never 07/30/2020 Do you [...] on file Legal Sex Female 9:09 PM RE EXAMINER Gender Identity Not on file Sexual Orientation [...] spray 1 spray(s), Nasal, daily, 1 each, [place], 0 08/20/2023 sucralfate (Carafate) 1 gram tablet [...] Date/Time Associated Diagnosis Comments XR CHEST PA LATERAL 2 VIEWS Schedule MELISSA, Read MELISSA (Appt Today, Awaiting Results) 09/29/2023 2:02 PM RE EXAMINER ICD (implantable cardioverter-defib rillator), dual, in situ NICM (nonischemic cardiomyopathy) (CMS/HCC) (HCC) documented in this encounter Results * XR Chest Pa Lateral 2 Views (09/29/2023 2:02 PM RE EXAMINER) Anatomical Region Laterality Modality Body, Chest N/A Computed Radiogr aphy 09/29/2023 2:11 PM RE EXAMINER Impressions 09/29/2023 4:07 PM RE EXAMINER The current study is compared with the [...] Camelia Mckeon M.D. Narrative 09/29/2023 4:07 PM RE EXAMINER EXAMINATION: 2 view chest radiograph Procedure Note [...] signed by: Camelia Mckeon M.D. Cyndie Person [facility] IMG XR PROCEDURES Final R esult documented in this encounter Visit Diagnoses Diagnosis ICD (implantable cardioverter-defibrillator), dual, in situ NICM (nonischemic cardiomyopathy) (CMS/HCC) (HCC) documented in this encounter Care Teams Residential Advisor Relationship Specialty Start Date End Date Enmanuel Gan MD [address] [email or web address] [address] [place] [address] PCP - General Internal Medicine 04/26/20 Tg Houston MD [address] [place] [address] Consulting Physician Cardiology 07/18/20 Guerrero Hunter DPT [address] [facility] [address] [facility] [place] [address] Physical Therapist Physical Therapy 11/08/20 Guerrero Weiner, [facility] [address] [place] [address] Chief Design Branch Physical Therapy 12/12/20 documented as of this encounter
--- OUTSIDE RECORDS SUMMARY | 2024-07-12 08:43 | XMS_ITS | Encounter Summary ---
Author Organization [facility] Healthcare Address [address] [place] [address] Care Team Providers Care Farm Boss Name Role Phone Enmanuel Gan MD Primary Care Provider [phone] Tg Houston MD Unavailable [phone] Guerrero Hunter DPT Unavailable [phone] Guerrero Weiner PROFESSIONAL ATHLETE Unavailable [phone] Reason for Visit * Reason Onset Date Comments Med Management 08/20/2023 Encounter Details Date Type Department Care Team (Late st Contact Info) Description 08/20/2023 Telephone [facility] [address] [address] Ashvin Recio III, MD [address] [facility] [address] [address] Med Management Social History Tobacco Use Types Packs/Day Years [...] attend chur ch or christian services? Never 07/30/2020 Do you [...] on file Legal Sex Female 9:09 PM PRE BILLING CLINICIAN Gender Identity Not on file Sexual Orientation Lesbian 05/24/2019 9: 06 AM CDT documented as of this encounter Miscellaneous Notes * Telephone Encounter - Michelle Oropeza MA - 08/20/2023 10:31 AM PRE BILLING CLINICIAN Pt reports that she never filled the RX for Amiodarone. Med list updated. BILLING CLINICIAN documented in this encounter Plan of Treatment Not on file documented as of this encounter Visit Diagnoses Not on filedocumented in this encounter Discontinued Medications Medication Sig Discontinue Reason Start Date End Da te amiodarone (PACERONE) 200 mg tablet Take 1 tablet (200 mg total) by mouth daily 08/04/2023 08/20/2023 documented as of this encounter Care Teams Farm Boss Relationship Specialty Start Date End Date Enmanuel Gan MD [address] [place] [address] PCP - General Internal Medicine 04/26/20 Tg Houston MD [address] [place] [address] Consulting Physician Cardiology 07/18/20 Guerrero Hunter DPT [address] [facility] [address] [facility] [place] [address] Physical Therapist Physical Therapy 11/08/20 Guerrero Weiner PTA [id number] [place] [address] Furnace And Wash Equipment Operator Physical Therapy 12/12/20 documented as of this encounter
--- OUTSIDE RECORDS SUMMARY | 2024-07-12 08:43 | XMS_ITS | Encounter Summary ---
Author Organization [facility] Address [address] [place] [address] Phone Care Team Providers Care Director Of Business Continuity Name Role Phone Enmanuel Gan MD Primary Care Provider [phone] Tg Houston MD Unavailable [phone] Guerrero Hunter DPT Unavailable [phone] Guerrero Weiner SUPERVISOR [employer] Unavailable [phone] Stephen Barth MD Unavailable [phone] Reason for Visit * Reason Onset Date Comments Medical Question/Miscellaneous 11/23/2023 Follow-up 11/23/2023 Encounter Details Date Type Department Care Team (Late st Contact Info) Description 11/23/2023 Telephone [facility] Orthopaedic Surgery [address] [facility] Advanced Medicine 6th [place] [address] [place] [address] Jeremy Michelle MD [address] [facility] [address] [place] [address] Medical Question/Miscellaneous ; Follow-up Social History Tobacco Use Types Packs/Day [...] attend chur ch or islam services? Never 07/30/2020 Do you belong to [...] on file Legal Sex Female 9:09 PM ACETONE BUTTON PASTER Gender Identity Not on file Sexual Orientation Lesbian 05/24/2019 9: 06 AM CDT documented as of this encounter Miscellaneous Notes * Telephone Encounter - Cyndie Byers RN - 11/23/2023 4:09 PM CDT Patient called and states she has a cold. She is scheduled for a 12/01 surgery for spinal fusion revision with Dr. Michelle. She has contacted her PCP and is taking medication. She will update office onhow she is doing and if she is getting better or worse. documented in this encounter Plan of Treatment Not on file documented as of this encounter Visit Diagnoses Not on filedocumented in this encounter Care Teams Director Of Business Continuity Relationship Specialty Start Date End Date Enmanuel Gan MD [address] [facility] [address] INTERNAL MEDICINE [place], [place] [id number] PCP - General Internal Medicine 04/26/20 Tg Houston MD [address] [facility] [address] [place] [address] Consulting Physician Cardiology 07/18/20 Guerrero Hunter DPT [address] [facility] [address] [facility] [place] [address] Physical Therapist Physical Therapy 11/08/20 Guerrero Weiner, SUPERVISOR [employer] [address] [facility] [address] [place] [address] Clerical Grader Physical Therapy 12/12/20 Stephen Barth MD [address] [facility] [address] [place] [address] Referring Physician Transplant 10/19/23 documented as of this encounter
--- OUTSIDE RECORDS SUMMARY | 2024-07-12 08:43 | XMS_ITS | Encounter Summary ---
Author Organization [facility] Healthcare Address [address] [place] [address] Care Team Providers Care Color Expert Name Role Phone Enmanuel Gan MD Primary Care Provider [phone] Tg Houston MD Unavailable [phone] Guerrero Hunter DPT Unavailable [phone] Guerrero Weiner RABBET OPERATOR Unavailable [phone] Reason for Visit * Cardiology (Routine) - Closed Specialty Diagnoses / Procedures Referred By Contac t Referred To Contact Diagnoses NICM (nonischemic cardiomyopathy) (CMS/HCC) ([facility]) Procedures DEVICE CHECK - REMOTE Ashvin Recio III, MD [address] [facility] [address], [place] [address] Phone: tel: fax: [facility] Referral ID Status Reason Start Date Expiration Date Visits Re quested Visits Authorized [id number] Closed 01/26/2023 07/29/2024 1 1 Encounter Details Date Type Department Care Team (Latest Contact Info) Description 08/17/2023 7:15 AM LAYOUT DESIGNER Ancillary Procedure Ar[facility]hythmia [facility] [address] [facility] [address] [id number] ICD (implantable cardioverter-defibr illator), dual, in situ (Primary Dx); NICM (nonischemic cardiomyopathy) (CMS/HCC) (HCC) Social History [...] any clubs o r organizations such as anabaptist groups, unions, fraternal or athletic groups, or [...] on file Legal Sex Female 9:09 PM LAYOUT DESIGNER Gender Identity Not on file Sexual Orientation Lesbian 05/24/2019 9: 06 AM CDT documented as of this encounter Plan of Treatment Not on file documented as of this encounter Procedures Procedure Name Priority Date/Time Associated Diagnosis Comments DEVICE CHECK - REMOTE Routine 08/17/2023 11:50 AM LAYOUT DESIGNER NICM (nonischemic cardiomyopathy) (CMS/HCC) (HCC) documented in this encounter Results * DEVICE CHECK - REMOTE (08/17/2023 11:50 AM LAYOUT DESIGNER) Anatomical Region Laterality Modality Other Narrative 08/20/2023 8:13 AM LAYOUT DESIGNER Table formatting from the original result was not included. Images from the original result were not included. ICD CHECK (REMOTE) Patient ID: Macie Briseno is a 78 y.o. female This patient received a [employer] ICD. ??They had a remote transmission on 08/17/2023. Device implant indications: ??Nonischemic cardiomyopathy, Mobitz type 2 ?? Interrogation of the patient's device demonstrates the following: Presenting EGM: ??A sense V sense @ 61 bpm Original Device Settings Right Atrium Right Ventricle Sensitivity (mV) 0.25 mV 0.60 mV Pacing Outputs 2.5 V @ 0.40 ms 2.5 V @ 0.40 ms ?? Testing Measurements Right Atrium Right Ventricle Sensitivity (mV) Not done mV 25.0 mV Impedence (Ohms) 625 ohms 438 ohms High Voltage Impedence ??73 ohms Pace Threshold Not done V @ ??ms NOT DONE V @ ??ms Pacing % 13 % 1 % Battery Status: ??10.5 years to YURIDIA with Charge Time 8.6 seconds Episodes last 90 days/Comments: AF [place] 1%, longest duration 15.4 hours July 14, 2023 202 stored ventricular events in review of stored EGMs the ventricular episodes appear to be episodes of AFib with RVR the most recent episode of AFib with RVR noted was July 29, 2019 for the majority of the episodes appear to have occurred toward the end of June please see below overall histograms from March 26, 2023 to August 17, 2023. NORMAL DEVICE FUNCTION PROGRAMMED Medications: Anti-coagulant(s): ??Eliquis 5 mg twice daily Anti-arrhythmic(s): ??Amiodarone 200 mg, Lopressor 25 mg twice daily PLAN: 1) normal [employer] ICD evaluation. 2) [employer] remote transmission scheduled in 3 months. 3) Programming appropriate for device measurements Latisha Self RN Ashvin Recio III, MD [facility] PROCEDURES Final Result documented in this encounter Visit Diagnoses Diagnosis ICD (implantable cardioverter-defibrillator), dual, in situ- Primary NICM (nonischemic cardiomyopathy) (CMS/HCC) (HCC) documented in this encounter Care Teams Color Expert Relationship Specialty Start Date End Date Enmanuel Gan MD [address] INTERNAL MEDICINE [place], [place] [id number] PCP - General Internal Medicine 04/26/20 Tg Houston MD [address] [place] [address] Consulting Physician Cardiology 07/18/20 Guerrero Hunter DPT [address] [facility] [address] [place] [address] Physical Therapist Physical Therapy 11/08/20 Guerrero Weiner, RABBET OPERATOR [address] [facility] [address] [place] [address] Videotape Sales Representative Physical Therapy 12/12/20 documented as of this encounter
--- OUTSIDE RECORDS SUMMARY | 2024-07-12 08:43 | XMS_ITS | Encounter Summary ---
Author Organization [facility] Healthcare Address [address] [place] [address] Care Team Providers Care Custom Applicator Name Role Phone Enmanuel Gan MD Primary Care Provider [phone] Tg Houston MD Unavailable [phone] Guerrero Hunter DPT Unavailable [phone] Guerrero Weiner CHECK OUT CASHIER Unavailable [phone] Stephen Barth MD Unavailable [phone] Encounter Details Date Type Department Care Team (Latest Contact Info) Description 11/12/2023 3:00 PM CDT Pre-Admission Testing [facility] Center for Preoperative Assessment and Planning [facility] ([facility]) [address] [place] [id number] Preoperative testing (Primary Dx); Pseudoarthrosis of lumbar spine; Disorders of glucose transport, unspecified (HCC); Vitamin D deficiency Anesthesia Record Procedure Summary Procedure Name Responsible Anesthesiologist Anesthesia Start Time Anesthesia Stop Time FUSION DECOMPRESSION LAMINECTOMY WITH INSTRUMENTATION - DEPUY EXPEDIUM--Posterior spinal instrumented fusion revision [id number] with posterior column osteotomies T12/L1 and L1/2, [...] detect rhythm as artifact noted from bovie, CLASS A TRUCK DRIVER noticed a change in rate and pressure [...] an stop data 1807 Out of Room 1818 Handoff to RN I completed my handoff [...] PACU 1817 An Stop 1947 Release from care Meds * Agents No agents on file. * Blood No blood administrations on file. Lines, Drains, and Airways Type Details Placement Removal Cochlear Implant 06/19/20; 1200 06/19/20 1200 b y Marissa Sanchez BS Hearing Aid 07/15/22; 1220 07/15/22 1220 by Kathleen Marcum RETIRED Surgical Site 07/25/20; 1313; Ba ck; xeroform 4x4 tegaderm; 12/03/23; 1859; Not present on admission (from previous admission) 07/25/20 1313 by Gianna Good RN 12/03/23 1859 by Claudia Jerez RN Peripheral IV Placement Date: 12/02/23; Placement Time: [...] by Tee Carver 12/03/23 2100 by Claudia Jerez, MEDINA Arterial Line Placement Date: 12/02/23; Placemnt Time: [...] RN ETT Placement Date: 12/02/23; Placement Time: 121 (created via procedure documentation); Mask Ventilation: 0; [...] often do you attend chur ch or yarsani services? Never 07/30/2020 Do you belong to [...] on file Legal Sex Female 9:09 PM [employer] Gender Identity Not on file Sexual Orientation Lesbian 05/24/2019 9: 06 AM CDT documented as of this encounter Last Filed Vital Signs Vital Sign Reading Time Taken Comments Blood Pressure 112/55 11/12/2023 3:50 PM CDT Pulse 60 11/12/2023 3:50 PM CDT Temperature - - Respiratory Rate 16 11/12/2023 3:50 PM CDT Oxygen Saturation - - Inhaled Oxygen Concentration - - Weight 79.8 kg (175 lb 14.8 oz) 11/12/2023 3:20 PM CDT Height 165.1 cm (5' 5 ) 11/12/2023 3:20 PM CDT Body Mass Index 29.28 11/12/2023 3:20 PM CDT documented in this encounter Miscellaneous Notes * Perioperative Nursing Note - Tarah Bauer RN - 11/12/2023 3:00 PM CDT Center for Preoperative Assessment and Planning Perioperative Nursing Note CPAP Clinic at [facility] ([facility]) Date: 11/12/23 This assessment was completed with the patient. Vitals: 11/12/23 1520 11/12/23 1550 BP: 112/55 BP Location: Left arm Patient Position: Sitting Pulse: 60 Resp: 16 Weight: 79.8 kg (175 lb 14.8 oz) Height: 165.1 cm (5' 5 ) CHEST CIRCUMFERENCE: n/a Social History Tobacco Use Smoking Status Never Smokeless Tobacco Never Substance and Sexual Activity Drug Use Never Alcohol Use Q1: How often do you have a drink containing alcohol?: 4 or more times a week (3-4) Q2: How many drinks containing alcohol do you have on a typical day when you are drinking?: 1 or 2 Q3: How often do you have six or more drinks on one occasion?: Never Outpatient Medications Marked as Taking for the 11/12/23 encounter (Pre-Admission Testing) with [facility] CPAP NURSE Medication Sig Dispense Refill acetaminophen (TYLENOL) 500 mg tablet Take 2 tablets (1,000 mg total) by mouth every 6 (six) hours as needed for pain alendronate (FOSAMAX) 70 mg tablet Take 1 tablet (70 mg total) by mouth every 7 days Thursday ALPRAZolam (XANAX) 0.25 mg tablet Take 1 tablet (0.25 mg total) by mouth nightly as needed for anxiety (Patient taking differently: Take 1 tablet (0.25 mg total) by mouth nightly as needed for anxiety) 90 tablet 0 atorvastatin (LIPITOR) 20 mg tablet Take 1 tablet (20 mg total) by mouth nightly azelastine (ASTELIN) 137 mcg (0.1 %) nasal spray Administer 1 spray into each nostril 2 (two) timesa day as needed for rhinitis or allergies CALCIUM ORAL Take 1 tablet by mouth every morning CHOLECALCIFEROL, VITAMIN D3, ORAL Take 1 tablet by mouth every morning DILT-XR 180 mg 24 hr capsule Take 1 capsule (180 mg total) by mouth every morning doxepin (SINEquan) 25 mg capsule Take 1-2 capsules (25-50 mg total) by mouth nightly as needed for sleep DULoxetine DR (CYMBALTA) 60 mg capsule Take 1 capsule (60 mg total) by mouth every morning Eliquis 5 mg tablet Take 1 tablet (5 mg total) by mouth 2 (two) times a day fexofenadine-pseudoephedrine (THELMA-D) 60-120 mg per 12 hr tablet Take 1 tablet by mouth 2 (two) times a day as needed for allergies fluticasone (FLONASE) 50 mcg/actuation nasal spray inhale 1 spray (50MCG) by intranasal route everyday in each nostril (Patient taking differently: Administer 1 spray into each nostril as needed forrhinitis or allergies) 0 furosemide (LASIX) 20 mg tablet TAKE 1 TABLET(20 MG) BY MOUTH DAILY (Patient taking differently: Take 2 tablets (40 mg total) by mouth 2 (two) times a day) 30 tablet 3 HYDROcodone-acetaminophen (NORCO) 5-325 mg per tablet Take 1 tablet by mouth every 6 (six) hours asneeded for pain magnesium citrate 100 mg tablet Take 1 tablet by mouth every morning metoprolol tartrate (LOPRESSOR) 25 mg immediate release tablet TAKE 1 TABLET(25 MG) BY MOUTH TWICE DAILY (Patient taking differently: Take 1 tablet (25 mg total) by mouth 2 (two) times a day) 180 tablet 1 mupirocin (BACTROBAN) 2 % ointment Apply topically 2 (two) times a day for 5 days APPLY TO NOSTRILSTWICE A DAY FOR 5 DAYS PRIOR TO SURGERY. (Patient taking differently: Apply 1 Application topically2 (two) times a day APPLY TO NOSTRILS TWICE A DAY FOR 5 DAYS PRIOR TO SURGERY.) 22 g 0 potassium chloride ER 20 mEq CR tablet Take 2 tablets (40 mEq total) by mouth every morning Implants ICD [employer] Ana M D152 Dynagen Enduralife Easyview Hf Perspectiv 5.37x7.68cm 2 Chamber - [id number] - [id number] - Implanted Inventory item: [employer] A[employer] M Dynagen Enduralife Easyview Hf Perspectiv 5.37x7.68cm 2 Chamber D152 Model/Cat number: [id number] Serial number: [id number] Transportation Modeler: TransMedics Ana M Device identifier: [id number] Device identifier type: [facility] Implant Date: 06/05/2021 As of 06/05/2021 Status: Implanted Lead [employer] Ana M 7841 Lead 7841 Endocardial Pacing Mr Is-1 Bipolar Connection - [id number] - [id number] - Implanted (Left) Inventory item: [employer] ANA M LEAD 7841 ENDOCARDIAL PACING MR IS-1 BIPOLAR CONNECTION 7841Model/Cat number: [id number] Serial number: [id number] Transportation Modeler: [employer] Ana M Device identifier: [id number] Device identifier type: [facility] Implant Date: 06/05/2021 As of 06/05/2021 Status: Implanted [employer] Ana M 0672 [place] 4-Front 59cm Active Fixation Lead Icd - [id number] - [id number] -Implanted (Left) Inventory item: [employer] A[employer] M RELIANCE 4-FRONT 59CM ACTIVE FIXATION LEAD ICD 0672 Model/Cat number: [id number] Serial number: [id number] Transportation Modeler: [employer] Ana M Device identifier: [id number] Device identifier type: 1 Implant Date: 06/05/2021 As of 06/05/2021 Status: Implanted Other - see comments Cochlear Americas [id number] Implant Cochlear Cochlear Nucleus Profile Plus Slim Modiolar Electrode Ci632 - [id number] - [id number] - Implanted (Left) Inventory item: COCHLEAR [employer] Implant Cochlear Cochlear Nucleus Profile Plus Slim Modiolar Electrode [id number] Model/Cat number: [id number] Serial number: [id number] Transportation Modeler: [employer] As of 04/09/2021 Status: Implanted Type Not Specified Screws - Implanted Spine Lumbar As of 06/09/2020 Status: Implanted Bilateral Total Hip Arthroplasty - Implanted (Bilateral) Hip As of 10/30/2020 Status: Implanted Allosource [id number] Crushed Chip Frozen Graft 30ml Bone Cancellous - [id number] - Implanted Inventory item: ALLOSOURCE Crushed Chip Frozen Graft 30ml Bone Cancellous [id number] Model/Cat number: [id number] Transportation Modeler: Allosource Lot number: [id number] As of 07/25/2020 Status: Implanted Medtronic [employer] [place] [id number] Infuse 18mm 26mm Absorbable Sponge Sterile Water Syringe Needle - [id number] - Implanted Inventory item: [employer] Kit Graft Bone Sponge Xlg Infuse 8cc Granules [id number] Model/Cat number: [id number] Transportation Modeler: Medtronic Inc Lot number: [id number] As of 07/25/2020 Status: Implanted Allosource [id number] Crushed Chip Frozen Graft 30ml Bone Cancellous - [id number] - Implanted Spine Thoracic Inventory item: ALLOSOURCE Crushed Chip Frozen Graft 30ml Bone Cancellous [id number] Model/Cat number: [id number] Transportation Modeler: Allosource Lot number: [id number] As of 07/25/2020 Status: Implanted Depuy Spine [id number] Expedium 6.5mm 60mm Polyaxial Spine Screw Bone Titanium 5.5mm El - [id number] - Implanted Spine Thoracic Inventory item: DEPUY SYNTHES SPINE Expedium 6.5mm 60mm Polyaxial Spine Screw Bone Titanium 5.5mm El [id number] Model/Cat number: [id number] Transportation Modeler: Depuy Spine As of 07/25/2020 Status: Implanted Depuy Spine [id number] Expedium 7mm 55mm 1 Innie Polyaxial Spine Screw Bone Titanium - [id number] - Implanted Spine Thoracic Inventory item: DEPUY SYNTHES SPINE Expedium 7mm 55mm 1 Innie Polyaxial Spine Screw Bone Titanium [id number] Model/Cat number: [id number] Transportation Modeler: Depuy Spine As of 07/25/2020 Status: Implanted Depuy Spine [id number] Expedium 7mm 50mm 1 Innie Polyaxial Spine Screw Bone Titanium - [id number] - Implanted Spine Thoracic Inventory item: DEPUY SYNTHES SPINE Expedium 7mm 50mm 1 Innie Polyaxial Spine Screw Bone Titanium [id number] Model/Cat number: [id number] Transportation Modeler: Depuy Spine As of 07/25/2020 Status: Implanted Depuy Spine [id number] Expedium 5.5mm 85mm Line Prebent El Spinal Titanium Nonsterile - [id number] - Implanted Spine Thoracic Inventory item: DEPUY SYNTHES SPINE Expedium 5.5mm 85mm Line Prebent El Spinal Titanium [id number] Model/Cat number: [id number] Transportation Modeler: Depuy Spine As of 07/25/2020 Status: Implanted Depuy Spine [id number] Expedium 1 Inner Monoaxial Spine Screw Set Titanium - [id number] - Implanted Spine Thoracic Inventory item: DEPUY SYNTHES SPINE Expedium 1 Inner Monoaxial Spine Screw Set Titanium [id number] Model/Cat number: [id number] Transportation Modeler: Depuy Spine As of 07/25/2020 Status: Implanted SKIN Piercings Remaining: Yes Wound (LDAs) Type of Wound (LDA): (pt denies) SCREENINGS Pain Assessment: No/denies pain STOP-Bang Total Score: 2 Franco Fall Risk Score (Retired): 40 Lorenza index score: 100 Have you ever been in or are you currently in a harmful physical or emotional relationship or is someone making you feel afraid or unsafe?: Denies AD8 Dementia Score: 0 Short Blessed Total Score: 4 NUTRITION ZAYAS Nutrition and Function History Questionnaire Is BMI < 20?: No Have you lost any weight in the past 6 months without trying? : No Have you eaten < 50% of normal in the past 2 weeks without trying?: No Have you experienced any of the following in the past month?: No Symptom Score: 0 Has your activity level decreased over the past 6 months or do you use an assistive device such as a walker, cane, or wheelchair?: No Total Score: 0 PATIENT CARE PLANNING Advance Directives (For Healthcare) Have you reviewed your Advance Directive and is it valid for this stay?: Yes Advance Directive: Patient has advance directive, copy in chart Type of Healthcare Directive: Durable power of online education manager for health care Information Provided on Healthcare Directives: No Communication/Quality Process Auditor Needs Communication Needs: Glasses, Other (Comment), Hearing aide(s) (cochlear implant) Assistive Devices/DME: Eyeglasses Hearing - Right Ear: Hearing aid Hearing - Left Ear: Cochlear implant Discharge Planning Type of Residence: Private residence Living Arrangements: Spouse/significant other Support Systems: Spouse/significant other Assistance Needed: DOS- S/o with her DOS Patient expects to be discharged to:: Private residence HISTOPATH TECH NO ADDITIONAL COMMENTS/ FOLLOW UP Patient with documented CHG allergy. RN instructed patient to substitute CHG for Anti-bacterial (Dial) soap. * Pre-Procedure Instructions - Tarah Bauer RN - 11/12/2023 3:00 PM CDT CENTER FOR PREOPERATIVE ASSESSMENT AND PLANNING (CPAP) PRE-SURGICAL NURSING INSTRUCTIONS Clinic Assessment General Information Discussed with Patient: Surgery location provided to patient. Arrival time and surgical time will be provided to the patient by their surgeon. You should wear clothing that is clean, loose, comfortable and easy to get in and out of on the dayof surgery. Remove nail coverings, artificial nails and nail slovak prior to the day of surgery. You should leave your valuables and any jewelry at home. No metal or piercings are allowed in the operating room. You should bring your insurance card, a photo ID (example: Family Helper's License) and a method of payment for any insurance copay, deductible or copay for discharge medications. You should bring a complete, up-to-date, list of all your medications on the day of surgery, including any over the counter medications or supplements you may take. Please note on your medication list, the last date & time you took each medication. The healthcare team, on the day of surgery, will ask for this information. You should bring your Advanced Directive and/or Living Will with you on the day of surgery if you have not verified a copy is already in your Epic Chart. PREVENTING INFECTION (DECOLONIZATION): Decolonization is the use of a topical antiseptic soap and sometimes a nasal ointment to remove bacteria (germs) from the skin's surface. Antiseptic soap: Chlorhexidine gluconate or CHG (brand name: Hibiclens??) Before surgery, your entire body must be thoroughly cleaned. CHG helps to reduce the bacteria on your skin. You may be given one or more bottles of CHG or you may be asked to obtain from your preferred pharmacy. Be sure to ask your pharmacist if you need help finding this product. Nasal ointment: Mupirocin (brand name: Bactroban)- This will only be ordered for the 5 Day Bathing Protocol. Your surgeon may also prescribe a topical ointment that is rubbed inside each of the nostrils to reduce the bacteria in your nose. Mupirocin ointment requires a prescription. If needed, it will be prescribed by your surgeon and obtained from your preferred pharmacy. SHOWERING WITH ANTISEPTIC SOAP (CHG) What You Need For Each Shower 60 mL (?? cup) of CHG 2 clean washcloths Below is the Pre-Surgical Bathing Protocol you should follow for your surgery. If your surgeon provides you different bathing instructions, please follow your surgeon's orders. 5 Day CHG Bathing & Nasal Ointment (Mupirocin) Protocol The following bathing instructions were discussed with the patient. Patient provided detailed scrubinstructions via A Guide for Patients Having Surgery: Your Pathway to Excellent Care, pages 7-10. Patients may also access the guide via the web link: [email or web address]. Patient stated understanding of the bathing instructions. Other Important Handouts/Education Discussed with Patient: Guide for Patients Having Surgery: Your Pathway to Excellent Care. Reviewed and provided document to patient. Patient stated understanding. Nutrition Education Handout, Fuel Up For Surgery. Reviewed and provided document to patient. Patient stated understanding. ___ Travel/Exposure Screening: Travel Screening Have you traveled outside the [place] in the last 6 months?: Yes Were you hospitalized in any country besides [place] in last 6 months?: Yes (Shakir- defibrilator went off) Have you traveled outside of the [place] in the last 30 days?: No Exposure Screening Have you been exposed to anyone who is sick in the last 30 days?: No Have you been exposed to or tested positive for COVID-19 within the last 10 days?: No Infectious Disease Screening Are you having any of the following:: None As of 05/20/2022 any COVID TESTING required for surgery will be set up by your surgeon's office. Please reach out to your surgeon's office if you develop any COVID symptoms, test positive for COVID or are exposed to a COVID positive person. All patients should read below section: COVID 19 Updates & Visitor Policy: Please access [email or web address] for the most updated information. Information on [facility] & the Orthopedic Center: Please view [email or web address] (Patient & Visitor Information) for additional details regarding Advanced Directive forms, AWARE, directions, parking information, lodging, Internet access, dining and more. For MyChart information, to activate account or password recovery, please go to [email or web address] or call [phone] (toll-free: [phone]), Thu- Thursday 8am-5pm. Information for Suicide Prevention: National Suicide Prevention Lifeline (6-349-617-WDYY (0290)) orcall or text 629. Chat resources: [employer] Mobile Guides.Clutter. Surgery Times: For patients having surgery @ [facility] for [facility] Medicine or [facility] ([facility]), if your surgeon's office has not notified you of your surgery time by NOON THE BUSINESS DAY BEFORE your surgery, please call [phone] and ask for your surgeon's office Dr. Michelle. The Center for Preoperative Assessment & Planning (CPAP) does not provide arrival times for the day of surgery or provide the duration of surgery. This information is provided by your surgeon'soffice or by the center where you are having surgery. We appreciate your understanding. * Pre-Procedure Instructions - Guy Tejada NP - 11/12/2023 3:00 PM CDT Center for Preoperative Assessment and Planning CPAP Clinic Location: [facility] CPAP The night before your surgery: * Do not eat anything after midnight the night before your procedure. The morning of your surgery: * You may have clear liquids on your surgery day. You must stop drinking two hours before you arrive to the surgery facility. Acceptable clear liquids include water, clear sports drinks, black coffee, tea, or clear soda. DO NOT drink any milk, creamer, or alcohol. * Your surgeon's office may have provided additional instructions or restrictions. Please follow those instructions. * You may brush your teeth and rinse your mouth out. * Do not wear jewelry, body piercings, makeup, hairpins, false eyelashes or contact lenses to the hospital. * Leave any valuables at home or with your family. Instructions For Your Medications: Pre-Surgery Instructions: Medication Instructions acetaminophen (TYLENOL) 500 mg tablet Take on day of surgery if needed alendronate (FOSAMAX) 70 mg tablet Take per usual schedule ALPRAZolam (XANAX) 0.25 mg tablet Take on day of surgery if needed atorvastatin (LIPITOR) 20 mg tablet Take per usual schedule azelastine (ASTELIN) 137 mcg (0.1 %) nasal spray Don't take on day of surgery CALCIUM ORAL Don't take on day of surgery CHOLECALCIFEROL, VITAMIN D3, ORAL Don't take on day of surgery DILT-XR 180 mg 24 hr capsule Take per usual schedule doxepin (SINEquan) 25 mg capsule Take per usual schedule DULoxetine DR (CYMBALTA) 60 mg capsule Take per usual schedule Eliquis 5 mg tablet Take per surgeon instructions fexofenadine-pseudoephedrine (THELMA-D) 60-120 mg per 12 hr tablet Don't take on day of surgery fluticasone (FLONASE) 50 mcg/actuation nasal spray Don't take on day of surgery furosemide (LASIX) 20 mg tablet Don't take on day of surgery HYDROcodone-acetaminophen (NORCO) 5-325 mg per tablet Take on day of surgery if needed magnesium citrate 100 mg tablet Don't take on day of surgery metoprolol tartrate (LOPRESSOR) 25 mg immediate release tablet Take per usual schedule mupirocin (BACTROBAN) 2 % ointment Take per surgeon instructions potassium chloride ER 20 mEq CR tablet Don't take on day of surgery sucralfate (CARAFATE) 1 gram tablet Don't take on day of surgery General Instructions For Medications: * Stop all of these medications 5 days prior to your surgery: excedrin, motrin, advil, ibuprofen, aleve, naproxen, meloxicam, celebrex, celecoxib. For medications that you are instructed to take on the morning of surgery, take the medications with a few sips of water. Stop all of these medications 7-14 days prior to your surgery: Vitamin E, Herbal medicines, Diet Pills If you have pain, you may take tylenol (acetaminophen). Do not take more than 6 tablets or 3000 mg (3 g) within a 24 period. Call your surgeon and the CPAP clinic if any of the following happens before surgery: Any changes in your health You have a fever You have any signs of an infection (chest, urinary tract or tooth) You have been to the Emergency Room or were in the hospital You have started taking any new medications You have questions about a bowel prep or special diet before surgery You have symptoms of COVID-19 such as a new or worsening cough, shortness of breath, fever, body aches, loss of taste or smell, diarrhea or vomiting, or sore throat. You have a household contact with COVID-19. You test positive for COVID-19. documented in this encounter Plan of Treatment Not on file documented as of this encounter Procedures Procedure Name Priority Date/Time Associated Diagnosis Comments TYPE AND SCREEN 14 DAY Routine 5:08 PM CDT Preoperative testing EGFR Routine 11/12/2023 5:08 PM CDT Pseudoarthrosis of lumbar spine CPAP APTT ALGORITHM Routine 11/12/2023 5 :08 PM CDT Preoperative testing URINALYSIS AND REFLEX TO MICROSCOPIC AND CULTURE Routine 11/12/2023 5:08 PM CDT Pseudoarthrosis of lumbar spine NICOTINE METABOLITE SCREEN, URINE Routine 11/12/2023 5:08 PM CDT Pseudoarthrosis of lumbar spine VITAMIN D 25 HYDROXY Routine 11/12/2023 5:08 PM CDT Pseudoarthrosis of lumbar spine Vitamin D deficiency ERYTHROCYTE SEDIMENTATION RATE Routine 11/12/2023 5:08 PM CDT Pseudoarthrosis of lumbar spine CBC WITHOUT DIFFERENTIAL Routine 11/12/2023 5:08 PM CDT Pseudoarthrosis of lumbar spine CRP (ACUTE PHASE) Routine 11/12/2023 5:0 8 PM CDT Pseudoarthrosis of lumbar spine HEMOGLOBIN A1C Routine 11/12/2023 5:08 PM CDT 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 73 m2 Comment: Interpretive Data [...] interpretive data was last reviewed 2021. Blood 11/12/2023 5:08 PM CDT 11/12/2023 5:53 PM CDT Jeremy Michelle MD LAB BLOOD ORDERABLES [place] [address] * CRP (acute phase) (11/12/2023 5:08 PM CDT) CRP 1.5 <=10.0 mg/L Blood 11/12/2023 5:08 PM CDT 11/12/2023 5:53 PM CDT Jeremy Michelle MD LAB BLOOD ORDERABLES Final Result Performing Organization Address [facility] de Phone Number KATIA [facility] [address] * Nicotine metabolite screen, urine (11/12/2023 5:08 PM CDT) Nicotine, ur <5.0 <5.0 ng/mL [place] [facility] Cotinine, ur <5.0 <5.0 ng/mL [facility] Anabasine ur <2.0 <2.0 ng/mL [facility] Comment: ADDITIONAL INFORMATION This test was developed and its performance characteristics determined by [facility] in a manner consistent with CLIA requirements. This test has not been cleared or approved by the U.S. Food and Drug Administration. Test Performed by: [facility] - [address] [address] Seismic Prospecting Supervisor: Carlos Eduardo Phillips M.D. Ph.D.; CLIA# [id number] Nornicotine, ur <2.0 <2.0 ng/mL [facility] Urine 11/12/2023 5:08 PM CDT 11/12/2023 6:00 PM CDT Jeremy Michelle MD LAB URINE ORDERABLES Final Result KATIA NIEVES [facility] [place] [address] Rose ref Lab * Urinalysis reflex to microscopic and culture Urine, clean voided (11/12/2023 5:08 PM CDT) Color, ur Straw Yellow Clarity, ur Clear Clear [facility] Specific gravity, ur 1.010 1.003 - 1.030 [facility] pH, urine 7.0 [facility] Comment: Interpretive Data ? Urine pH is affected by diet, medications, systemic acid-base disturbances, and renal tubular function. ??pH may affect urinary stone formation. ??For example, urine pH below 6.0 may help reduce the tendency for calcium phosphate stones and pH greater than 6.0 may reduce the tendency for uric acid stone formation. Source: [facility] Current Interpretive Data was last revised on 2017 Protein, ur ql Negative Negative [facility] Glucose, ur ql Negative Negative [facility] Ketones, ur Negative Negative [facility] Bilirubin, ur Negative Negative [facility] Blood, ur Negative Negative [facility] Urobilinogen, ur <2.0 <2.0 mg/dL [facility] Nitrite, ur Negative Negative [facility] Leukocyte esterase, ur Negative Negative [facility] UA reflex comment Reflex conditions for microscopic UA and culture not met. [facility] Urine, clean voided 11/12/2023 5:08 PM CDT 11/12/2023 5:45 PM CDT Jeremy Michelle MD LAB MICROBIOLOGY - G ENERAL ORDERABLES Final Result Performing Organization Address [facility]/ZIP Co de Phone Number KATIA NIEVES [facility] [place] [address] * Vitamin D 25 hydroxy (11/12/2023 5:08 PM CDT) Vitamin D 25-OH 33 30 - 80 ng/mL Blood 11/12/2023 5:08 PM CDT 11/12/2023 5:53 PM CDT Jeremy Michelle MD LAB BLOOD ORDERABLES Final Result Performing Organization Address [facility] de Phone Number [facility] [place] [address] * Erythrocyte sedimentation rate (11/12/2023 5:08 PM CDT) [facility] Erythrocyte sedimentation rate 9 1 - 30 mm/hr Blood 11/12/2023 5:08 PM CDT 11/12/2023 5:53 PM CDT Result [facility] Jeremy Michelle MD LAB BLOOD ORDERABLES Final Result Performing Organization Address [facility] [place] [address] * Hemoglobin A1c (11/12/2023 5:08 PM CDT) [facility] Hgb A1C 5.5 4.0 - 5.6 % Estimated Average Glucose 111 mg/dL [facility] Comment: The ADA recommends reporting an estimated Average Glucose (eAG) with all Hemoglobin A1c results using the equation derived from a study of 507 normal and diabetic adults. ??Minority populations were underrepresented and children were not included. ?? (Diabetes Care 2020; 43(S1): S66-S76). ??The eAG is not equivalent to a fasting glucose. Blood 11/12/2023 5:08 PM CDT 11/12/2023 5:53 PM CDT Jeremy Michelle MD LAB BLOOD ORDERABLES Final Result Performing Organization Address [facility] de Phone Number [facility] [place] [address] * CBC without differential (11/12/2023 5:08 PM CDT) [facility] WBC 6.0 3.8 - 9.9 K/cumm Hgb 13.8 11.9 - 15.5 g/dL [facility] Hct 41.4 35.6 - 45.5 % [facility] Plt 311 150 - 400 K/cumm [facility] MPV 10.1 9.1 - 12.3 fL [facility] RBC 4.79 3.90 - 5.20 M/cumm [facility] MCV 86.4 81.3 - 96.4 fL [facility] MCH 28.8 27.1 - 33.3 pg [facility] MCHC 33.3 32.3 - 35.7 g/dL [facility] RDW CV 14.5 11.1 - 14.9 % [facility] RDW SD 46.0 35.7 - 48.1 fL [facility] NRBC abs 0.00 0.00 - 0.01 K/cumm [facility] Blood 11/12/2023 5:08 PM CDT 11/12/2023 5:53 PM CDT us Jeremy Michelle MD LAB BLOOD ORDERABLES Final Result [facility] [place] [address] * (ABNORMAL) Comprehensive metabolic panel (11/12/2023 5:08 PM CDT) [facility] Sodium 142 135 - 145 mmol/L Potassium, pl 3.5 3.3 - 4.9 mmol/L [facility] Chloride 106 97 - 110 mmol/L [facility] CO2 29 22 - 32 mmol/L [facility] Anion gap 7 2 - 15 mmol/L [facility] BUN 15 6 - 25 mg/dL [facility] Creatinine 0.79 0.60 - 1.10 mg/dL [facility] Glucose 96 70 - 199 mg/dL [facility] Comment: Interpretive Data Fasting glucose >/= 126 [...] interpretive data was last revised 2022. Calcium 9.3 8.5 - 10.3 mg/dL [facility] Bilirubin, total 0.5 0.1 - 1.2 mg/dL [facility] Protein, pl 7.6 6.5 - 8.5 g/dL [facility] Albumin 4.6 3.5 - 5.0 g/dL [facility] Alk phos 133(H) 40 - 130 Units/L [facility] ALT 31 7 - 45 Units/L [facility] AST 41 10 - 45 Units/L [facility] Blood 11/12/2023 5:0 8 PM CDT 11/12/2023 5:53 PM CDT Jeremy Michelle MD LAB BLOOD ORDERABLES Final Result [facility] [place] [employer] [place] [address] * CPAP aPTT algorithm (11/12/2023 5:08 PM CDT) aPTT 37 28 - 38 sec Comment: Interpretive Data Heparin therapeutic range: 66.0 - 100.0 seconds. Range based on correlation with therapeutic heparin activity range of 0.3 - 0.7 Units/mL. Current interpretive data was last revised on 2023. Blood 11/12/2023 5:08 PM CDT 11/12/2023 5:56 PM CDT us Guy Tejada NP LAB BLOOD ORDERABLES Final Result [facility] [place] [employer] [place] [address] * TYPE AND SCREEN 14 DAY (11/12/2023 5:08 PM CDT) Jake, indirect Negative ABO Rh A Negative [facility] Blood 11/12/2023 5:08 PM CDT 11/12/2023 6:08 PM CDT Narrative [facility] - 11/12/2023 7:26 PM CDT Has the patient had Daratumumab or Isatuximab in the past 6 months?->No Is this test being ordered in advance for a procedure?->Yes Expected date of procedure:->11/25/23 Has the patient been transfused in the past 3 months?->No Has the patient been in the past 3 months?->No Guy Tejada NP LAB BLOOD BANK TEST ORDERA BLES Final Result [facility] [place] [address] documented in this encounter Visit Diagnoses Diagnosis Preoperative testing- Primary Unspecified pre-operative examination 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 acetaminophen (TYLENOL) 500 mg tabletIndications :Pain Take 2 tablets (1,000 mg total) by mouth every 6 (six) hours as needed for pain 12/14/2023 CHOLECALCIFEROL, VITAMIN D3, ORALIndications:s upplement Take 1 tablet by mouth every morning 01/06/2024 CALCIUM ORALIndications:s upplement Take 1 tablet by mouth every morning 12/14/2023 added in this encounter Care Teams Custom Applicator Relationship Specialty Start Date End Date Enmanuel Gan MD [address] [place] [address] PCP - General Internal Medicine 04/26/20 Tg Houston MD [address] [place] [address] Consulting Physician Cardiology 07/18/20 Guerrero Hunter DPT [address] [facility] [address] [facility] [place] [address] Physical Therapist Physical Therapy 11/08/20 Guerrero Weiner, [facility] [address] [place] [address] Sock And Stocking Ironer Physical Therapy 12/12/20 Stephen Barth MD [address] [place] [address] Referring Physician Transplant 10/19/23 documented as of this encounter
--- OUTSIDE RECORDS SUMMARY | 2024-07-12 08:43 | XMS_ITS | Encounter Summary ---
Author Organization [facility] Address [address] [place] [address] Phone Care Team Providers Care Roofing Apprentice Name Role Phone Enmanuel Gan MD Primary Care Provider [phone] Tg Houston MD Unavailable [phone] Guerrero Hunter DPT Unavailable [phone] Guerrero Weiner WORD PROCESSING SPECIALIST Unavailable + Stephen Barth MD Unavailable [phone] Encounter Details Date Type Department Care Team (Latest Contact Info) Description 11/12/2023 1:45 PM CDT Clinical Support [facility] Orthopaedic Surgery [facility] Advanced Medicine 6th [place] [address] [place] [address] Prophylactic antibiotic (Primary Dx); Encounter for education Social History Tobacco Use Types Packs/Day Years [...] often do you attend chur ch or jewish services? 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 22 g 11/12/2023 documented in this encounter Progress Notes * Cyndie Byers, RN - 11/12/2023 1:45 PM CDT I met with Macie Briseno 1945 today for pre surgical teaching. The patient was accompaniedby spouse, Sunita. I discussed with the patient, preoperative preparations including testing and consultations needed prior to surgery. I discussed with the patient, the hospital course, the pain management protocol, possible rehabilitation after surgery, and return to work estimates. Patient Name: Macie Mondragonwin 1945 Surgeon: Dr. Jeremy Michelle Pre-Operative Diagnosis: pseudoarthrosis of the lumbar spine Surgical Plan: PSIF revision [id number] with PCO T12/L1 &L1/L2 Instrumentation: Depuy Synthes Expedium Surgery Date: 11/25/2023 Surgery Arrival Time: 0630 Surgery Location: Surgery is scheduled [facility], [address] [place] [address] Admission Plan: Same Day Surgery Admit Post Operative Destination: Surgical/Ortho Floor Medications: has a current medication list which includes the following prescription(s): acetaminophen (TYLENOL), alendronate (FOSAMAX), alprazolam (XANAX), atorvastatin (LIPITOR), azelastine (ASTELIN), calcium, cholecalciferol (vitamin d3), dilt-xr, doxepin (SINEQUAN), duloxetine dr (CYMBALTA), eliquis, fexofenadine-pseudoephedrine (THELMA-D), fluticasone propionate (FLONASE), furosemide (LASIX), hydrocodone-acetaminophen (NORCO), magnesium citrate, metoprolol tartrate (LOPRESSOR), mupirocin (BACTROBAN), potassium chloride er (KLOR-CON), and sucralfate (CARAFATE). Allergies: is allergic to adhesive, chlorhexidine, sulfa (sulfonamide antibiotics), and gabapentin. PMH: Past Medical History: Diagnosis Date Allergic rhinitis Anxiety unknown maybe 1989 Arthritis 2019 Atrial fibrillation (CMS/HCC) (HCC) Auditory vertigo Meniere's disease Coronary artery disease Depression 1989 Heart disease Afib 2019 HL (hearing loss) HLD (hyperlipidemia) Meniere's disease Microvascular angina (HCC) Mixed conductive and sensorineural hearing loss 1989 Osteoporosis 2013 Tinnitus Discharge Plan: Home with Family Post Op Brace: TLSO custom Brace Needs: Patient should be fitted post operatively. OT Orders: Yes Medication Teaching: Patient was given surgery instructions including stopping all NSAID's and Aspirin products 7 days before surgery. I discussed with the patient, their diagnosis, surgical procedure, and risks of complications at length. The patient completed the preoperative questionnaires and we reviewed the wake up test together. A surgery teaching booklet was provided upon scheduling surgery. CPAP appointment: 11/12/2023. The patient was prescribed the 5 day pre surgery mupirocin ointment with instructions for use. The narcotic agreement, surgical procedure consent and the blood transfusion consent were reviewed with the patient. The narcotic policy was reviewed, and the patient was made aware that opioids/narcotics will only be filled for a 7 day supply at a time. The patient was instructed that Dr. Jeremy Michelle will prescribe pain medications for up to 90 days post surgery. The patient gave informed consent to the above mentioned procedure and the Surgical and Blood Transfusion Consent, Narcotic Agreement - discussed 7 day script protocol and 90 day post operative acuteprotocol, and Bone Morphogenetic Protein Consent were signed. Patient was instructed not to eat solids after midnight and clears until 2 hours prior to the arrival time prior to surgery. Patient was told to call the office if they have any additional questions prior to their surgery date. Patient verbalized understanding of these instructions. All information was given to patient regarding his/her diagnosis, preoperative instructions, discharge instructions, and postoperative surgical restrictions. Patient verbalized understanding of all instructions. All questions were answered. Patient agreed to proceed with the planned surgery. Cyndie Byers RN Clinical Nurse Coordinator Department of Orthopaedic Spine Surgery documented in this encounter Plan of Treatment Not on file documented as of this encounter Visit Diagnoses Diagnosis Prophylactic antibiotic- Primary Encounter for long-term (current) use of antibiotics Encounter for education documented in this encounter Care Teams Roofing Apprentice Relationship Specialty Start Date End Date Enmanuel Gan MD [address] [place] [address] PCP - General Internal Medicine 04/26/20 Tg Houston MD [address] [place] [address] Consulting Physician Cardiology 07/18/20 Guerrero Hunter DPT [address] [facility] [address] [place] [address] Physical Therapist Physical Therapy 11/08/20 Guerrero Weiner, [facility] [address] [facility] [address] [place] [address] Construction Crew Member Physical Therapy 12/12/20 Stephen Barth MD [address] [place] [address] Referring Physician Transplant 10/19/23 documented as of this encounter
--- OUTSIDE RECORDS SUMMARY | 2024-07-12 08:43 | XMS_ITS | Encounter Summary ---
Author Organization [facility] [place] Address [address] [place] [address] Phone Care Team Providers Care Licensing Analyst Name Role Phone Enmanuel Gan MD Primary Care Provider [phone] Tg Houston MD Unavailable [phone] Guerrero Hunter DPT Unavailable [phone] Guerrero Weiner MAP AND CHART MOUNTER Unavailable [phone] Reason for Visit * Reason Comments Follow-up Meniere's disease * Consultation (Routine) - Closed Specialty Diagnoses / Procedures Referred By Contwolfgang t Referred To Contact Otolaryngology Diagnoses Sensorineural hearing loss (SNHL) of both ears Enmanuel Gan MD [address] [facility] 162 [facility] [address] [place] [address] Phone: tel: fax: [facility] (All Locations) Referral ID Status Reason Start Date Expiration Date V isits Requested Visits Authorized [id number] Closed Specialty Services Required 08/28/2022 09/27/2023 12 12 Encounter Details Date Type Department Care Team (Latest Contact Info) Description 09/16/2023 11:20 AM FITTING ROOM SUPERVISOR Office Visit [facility] ENT [facility]4 [facility] Medical Office Building [address] [place] [address] Darshana Toth MD [address] [place] [address] Sensorineural hearing loss (SNHL) of both ears (Primary Dx); Meniere's disease of both ears Social History Tobacco Use Types Packs/Day Years [...] often do you attend chur ch or jainism services? Never 07/30/2020 Do you belong to any clubs o r organizations such as gnosticist groups, unions, fraternal or athletic groups, or [...] on file Legal Sex Female 9:09 PM FITTING ROOM SUPERVISOR Gender Identity Not on file Sexual Orientation Lesbian 05/24/2019 9: 06 AM CDT documented as of this encounter Progress Notes * Darshana Toth MD - 09/16/2023 11:20 AM CST Macie Briseno was seen in consultation at the request of Dr. Gan. Chief Complaint: Chief Complaint Patient presents with Follow-up Meniere's disease Interval: The patient returns for follow-up evaluation. Overall she reports have done well with stable symptoms regard to hearing where she uses a right hearing aid on left cochlear implant. Her balance symptoms have been stable as well. She did report several months ago having epistaxis and she is also on Eliquis. She can also get intermittent left ear pruritus. From previous: HPI: This is a 78 y.o. female who presents today for evaluation of bilateral Meniere's disease. Sheis a patient of Dr. Jackson. She had previously undergone a left vestibular nerve section and had also been treated for right BPPV. She has been treated with medical therapy with hydrochlorothiazide. Of note she was also treated with venlafaxine by her primary care physician for depression. This wasinitiated last year and she has been trying to wean off of this medication and noted that her Meniere's symptoms have worsened since stopping therapy last week. She presents today for evaluation and possible Decadron perfusion. Past Medical/Surgical History Past Medical History: Diagnosis Date Allergic [...] ARTHROPLASTY Bilateral 2014 VESTIBULAR NERVE SECTION Left Past Family/Social History Family History Problem Relation Age of [...] Cardiac Neg Hx Anesthesia problems Neg Hx Social History Socioeconomic History Marital status: Tobacco Use Smoking status: Never Smoker Smokeless tobacco: Never Used Vaping Use Vaping Use: Never used Substance and Sexual Activity Alcohol use: Yes Alcohol/week: 5.0 standard drinks Types: 5 Glasses of wine per week Drug use: Not Currently Comment: cbd oil topically Social History Narrative General Social History Comments: female spouse Medications/Allergies/Immunizations Current Outpatient Medications Medication Sig Dispense Refill alendronate (FOSAMAX) 70 mg tablet TAKE 1 TABLET BY MOUTH 1 TIME A WEEK DILT-XR 180 mg 24 hr capsule Take 1 capsule (180 mg total) by mouth daily ALPRAZolam (XANAX) 0.25 mg tablet Take 1 tablet (0.25 mg total) by mouth nightly as needed for anxiety 90 tablet 0 atorvastatin (LIPITOR) 20 mg tablet Take 1 tablet (20 mg total) by mouth nightly azelastine (ASTELIN) 137 mcg (0.1 %) nasal spray 1 spray 2 (two) times a day doxepin (SINEquan) 25 mg capsule TAKE 1 TO 2 CAPSULES BY MOUTH EVERY DAY AT BEDTIME DULoxetine DR (CYMBALTA) 30 mg capsule Take 3 capsules (90 mg total) by mouth every morning DULoxetine DR (CYMBALTA) 60 mg capsule Take by mouth daily Eliquis 5 mg tablet Take 1 tablet (5 mg total) by mouth 2 (two) times a day fexofenadine-pseudoephedrine (THELMA-D) 60-120 mg per 12 hr tablet Take 1 tablet by mouth 2 (two) times a day as needed for allergies fluticasone (FLONASE) 50 mcg/actuation nasal spray inhale 1 spray (50MCG) by intranasal route everyday in each nostril (Patient taking differently: Administer into each nostril nightly) 0 furosemide (LASIX) 20 mg tablet TAKE 1 TABLET(20 MG) BY MOUTH DAILY 30 tablet 3 HYDROcodone-acetaminophen (NORCO) 5-325 mg per tablet Take by mouth every 6 (six) hours as needed magnesium citrate 100 mg tablet Take 1 tablet by mouth every morning (Patient not taking: Reported on 02/24/2023) metoprolol tartrate (LOPRESSOR) 25 mg immediate release tablet TAKE 1 TABLET(25 MG) BY MOUTH TWICE DAILY 180 tablet 1 potassium chloride ER 20 mEq CR tablet Take 2 tablets (40 mEq total) by mouth every morning sucralfate (CARAFATE) 1 gram tablet Take 2 tablets (2 g total) by mouth 2 (two) times a day as needed No current facility-administered medications for this visit. Allergies: Adhesive, Chlorhexidine, Sulfa (sulfonamide antibiotics), and Gabapentin, Immunizations: Immunization History Administered Date(s) Administered Influenza, Quadrivalent, High Dose, Preservative Free, Intrr 04/10/2020, 03/31/2021 Influenza, Trivalent, High Dose, Split, Preservative Free, Intramuscular 05/04/2018, 05/07/2019 Influenza, Trivalent, Intramuscular 05/03/2009, 04/26/2011, 05/04/2012, 05/13/2013, 05/05/2014, 05/16/2015, 05/25/2016, 04/15/2017, 05/04/2018, 05/03/2019 Influenza, Unspecified 03/27/2020 Moderna SARS-CoV-2 Monovalent Vaccination (12+ YRS) 09/13/2020, 10/15/2020, 06/10/2021 Pneumococcal Conjugate PCV 13 10/12/2015 Pneumococcal Polysaccharide PPV23 04/26/2010, 05/04/2018 ZOSTER LIVE 04/26/2010 ZOSTER Recombinant 05/24/2018, 07/29/2018 Review of Systems Review of Systems: Pertinent positives in HPI. Intake sheet reviewed covering a full 10-systems review of systems. Physical Exam Vital Signs: There were no vitals taken for this visit. GENERAL: Pleasant female, sitting up in NAD, normal appearance and voice. RESPIRATION: Breathing comfortably, no stridor. CV: No clubbing/cyanosis/edema in hands, RRR. HEAD AND FACE: General Inspection reveals no lesions or masses. HEENT: EARS: If the otoscope was inadequate, the otology microscope was used for improved visualization for diagnostic purposes. Microscopic visualization was used for clear magnified visualization and three-dimensional imaging of the ear for detection of any observable pathology or pathologic anatomic configuration and charaterization of the same. Right External auditory canal: normal Tympanic Membrane: normal Middle ear: normal Left: External auditory canal: normal Tympanic Membrane: normal Middle ear: normal EYES: EOM Intact, sclera anicteric, no conjunctival injection. NOSE: External inspection of nose reveals no lesions, no masses. Inspection of nasal mucosa, septum, and turbinates is normal to anterior rhinoscopy. ORAL CAVITY/OROPHARYNX: Lips and gums are normal. Oropharynx, including the mucosa of oral cavity, hard and soft palates, tongue, and posterior pharyngeal wall showed normal symmetry without lesion and normal hydration of mucosal surfaces. NECK: Normal symmetry and overall appearance as well as tracheal position; no masses. Thyroid gland shows no tenderness or masses. NEURO: A&Ox3, Cranial nerves 2-12 intact and symmetric. Normal affect. GAIT: Normal. ASSESSMENT/PLAN 73-year-old female returns to clinic for evaluation of bilateral Meniere's disease, BPPV, and sensorineural hearing loss. She has done very well since cochlear implantation. With regard to her epistaxis we discussed nasal hydration and use of Afrin for epistaxis. We also discussed humidification inher bedroom. With regard to the pruritus I recommended use of left ear olive oil drops. She is pending surgery with Dr. Michelle with orthopedics and she is cleared to have this as far as her ears areconcerned. The note in its entirety has been confirmed by me, the attending physician. Parts of the note were initially recorded by my staff. I have seen and examined the patient, and was present for the entireservice/procedures performed. I agree with the findings and plan of care as initially documented inthe resident's/fellow's note and edited by me. Darshana Toth M.D. Otology and Neurotology Department of Otolaryngology [facility] [email or web address] Office: Clinic: ING ROOM SUPERVISOR documented in this encounter Plan of Treatment Not on file documented as of this encounter Visit Diagnoses Diagnosis Sensorineural hearing loss (SNHL) of both ears- Primary Meniere's disease of both ears documented in this encounter Discontinued Medications Medication Sig Discontinue Reason Start Date End Da te Lagevrio, EUA, 200 mg capsule (EUA) TAKE 4 CAPSULES BY MOUTH EVERY 12 HOURS FOR 5 DAYS 07/13/2023 09/16/2023 documented as of this encounter Historical Medications * This list may reflect changes made after this encounter. DILT-XR 180 mg 24 hr capsuleIndications :A-fib Take 1 capsule (180 mg total) by mouth every morning 09/07/2023 4 alendronate (FOSAMAX) 70 mg tabletIndications: Post-Menopausal Osteoporosis Take 1 tablet (70 mg total) by mouth every 7 days Thursday08/18/2023 4 added in this encounter Care Teams Licensing Analyst Relationship Specialty Start Date End Date Enmanuel Gan MD [address] [facility] [address] [place] [address] PCP - General Internal Medicine 04/26/20 Tg Houston MD [address] [facility] [address] [place] [address] Consulting Physician Cardiology 07/18/20 Guerrero Hunter DPT [address] [facility] [address] [place], [place] [id number] Physical Therapist Physical Therapy 11/08/20 Guerrero Weiner, [facility] [address] [facility] [address] [place] [address] Estimator Project Manager Physical Therapy 12/12/20 documented as of this encounter
--- OUTSIDE RECORDS SUMMARY | 2024-07-12 08:44 | XMS_ITS | Encounter Summary ---
Author Organization [facility] Address [address] [place] [address] Care Team Providers Care Plater Apprentice Name Role Phone Enmanuel Gan MD Primary Care Provider [phone] Tg Houston MD Unavailable [phone] Guerrero Hunter DPT Unavailable [phone] Guerrero Weiner EMERGENCY VEHICLE DRIVER Unavailable [phone] Encounter Details Date Type Department Care Team (Late st Contact Info) Description 06/30/2023 Telephone [facility] Medical Group Cardiology [address] [place] [address] Jayda Vinson MD [address] [place] [address] Social History Tobacco Use Types [...] week 07/30/2020 How often do you attend [facility] or rastafarian services? Never 07/30/2020 Do you belong to [...] things needed for daily living? No 07/30/2020 Comments No Sex and Gender Information Value Date Recorded Sex Assigned at Not on file Legal Sex Female 9:09 PM PIANO PLAYER Gender Identity Not on file Sexual Orientation Lesbian 05/24/2019 9: 06 AM CDT documented as of this encounter Miscellaneous Notes * Telephone Encounter - Tootie Castaneda RN - 06/30/2023 10:[address] Gan called and spoke with [facility] in MAF's absence today informing him that a physician in [place] called him to let him know pt is currently in [place], she ICD fired twice, trop elevated, cath'dher today but it was clean and they are discharging pt today. [facility] requested a note be sent to [facility] as FYI. Pt has f/u with [facility] 09/19. Will forward to [facility] as FYI. O PLAYER * Telephone Encounter - Jayda Vinson MD - 06/30/2023 8:36 AM PIANO PLAYER See previous note. Pt called from [place] this a.m., had stent, doing well, hopes to be discharged soon, doesn't need info sent now. O PLAYER documented in this encounter Plan of Treatment Not on file documented as of this encounter Visit Diagnoses Not on filedocumented in this encounter Care Teams Plater Apprentice Relationship Specialty Start Date End Date Enmanuel Gan MD [address] [facility] [place] [address] PCP - General Internal Medicine 04/26/20 Tg Houston MD [address] [facility] [address] [place] [address] Consulting Physician Cardiology 07/18/20 Guerrero Hunter DPT [address] [facility] [address] [facility] [place] [address] Physical Therapist Physical Therapy 11/08/20 Guerrero Weiner, [facility] [address] [facility] [address] [place] [address] Internal Recruiter Physical Therapy 12/12/20 documented as of this encounter
--- OUTSIDE RECORDS SUMMARY | 2024-07-12 08:44 | XMS_ITS | Encounter Summary ---
Author Organization [facility] Address [address] [place] [address] Care Team Providers Care Floral Designer Name Role Phone Enmanuel Gan MD Primary Care Provider [phone] Tg Houston MD Unavailable [phone] Guerrero Hunter DPT Unavailable [phone] Guerrero Weiner COMMODITY MANAGER Unavailable [phone] Reason for Referral * MRI/CAT/PET Scan (Routine) - Closed Specialty Diagnoses / Procedures Referred By Contac t Referred To Contact Radiology Diagnoses Fusion of spine of lumbar region Procedures CT Lumbar Spine WO Contrast Jeremy Michelle MD [address] [place] [address] Phone: tel: fax: [facility] [address] [place] [address] Referral ID Status Reason Start Date Expiration Date Visits Re quested Visits Authorized [id number] Closed 05/21/2023 11/17/2023 1 1 [facility] Reason for Visit * MRI/CAT/PET Scan (Routine) - Closed Specialty Diagnoses / Procedures Referred By Contac t Referred To Contact Radiology Diagnoses Fusion of spine of lumbar region Procedures CT Lumbar Spine WO Contrast Jeremy Michelle MD [address] [facility] [place] [address] Phone: tel: fax: [facility] 1 [facility] [place] [address] Referral ID Status Reason Start Date Expiration Date Visits Re quested Visits Authorized [id number] Closed 05/21/2023 11/17/2023 1 1 Encounter Details Date Type Department Care Team (Latest Contact Info) Description 06/08/2023 8:38 AM [facility] - 06/08/2023 11:59 PM [facility] Hospital Encounter [facility] [address] [place] [address] Jeremy Michelle MD [address] [place] [address] Fusion of spine of lumbar region Discharge [...] week 07/30/2020 How often do you attend [facility] or spiritism services? Never 07/30/2020 Do you belong to [...] on file Legal Sex Female 9:09 PM [facility] Gender Identity Not on file Sexual Orientation [...] as needed for anxiety 90 tablet 04/13/2023 12/14/19 24 azelastine (ASTELIN) 137 mcg (0.1 %) nasal sprayIndications:Se asonal Allergic Rhinitis Administer 1 spray into each nostril 2 (two) times a day as needed for rhinitis or allergies 12/30/2021 01/06/20 24 calcium acetate,phosphat bind, (PHOSLO) 667 mg capsuleIndications: supplement Take 2 capsules (1,334 mg total) by mouth every morning 07/31/19 24 dilTIAZem XR (CARDIZEM CD,DILACOR XR) 180 mg 24 hr capsule Take 1 capsule (180 mg total) by mouth daily 90 capsule 3 09/25/2022 07/06/20 23 doxepin (SINEquan) 25 mg capsuleIndications: sleep Take 1-2 capsules (25-50 mg total) by mouth nightly as needed for sleep 02/04/2023 12/14/[address] (CYMBALTA) 30 mg capsuleIndications: Anxiety with Depression Take 3 capsules (90 mg total) by mouth every morning 12/21/2019 09/29/19 24 Eliquis 5 mg tabletIndications:a trial fibrillation Take 1 tablet (5 mg total) by mouth 2 (two) times a day 04/23/2021 12/14/19 24 fexofenadine-pseudo ephedrine (THELMA-D) 60-120 mg per 12 hr tabletIndications:A llergic Rhinitis Take 1 tablet by mouth 2 (two) times a day as needed for allergies 01/06/20 24 fluticasone (FLONASE) 50 mcg/actuation nasal spray inhale 1 spray (50MCG) by intranasal route every day in each nostril 0 06/15/2012 01/06/20 24 furosemide (LASIX) 20 mg tabletIndications:A pical variant hypertrophic cardiomyopathy (HCC),SNIDER (dyspnea on exertion),Localized edema Take 1 tablet (20 mg total) by mouth daily 30 tablet 11 07/01/2022 08/04/19 24 furosemide (LASIX) 40 mg tablet TAKE 1 TABLET BY MOUTH EVERY MORNING. DISCONTINUE THE FUROSEMIDE 20. THANK YOU 02/12/2023 07/31/19 24 HYDROcodone-acetami nophen (NORCO) 5-325 mg per tabletIndications:P ain Take 1 tablet by mouth every 6 (six) hours as needed for pain 04/03/2022 12/14/19 24 magnesium citrate 100 mg tabletIndications:h ypomagnesemia Take 1 tablet by mouth every morning 12/14/19 24 potassium chloride ER 20 mEq CR tabletIndications:s upplement Take 2 tablets (40 mEq total) by mouth every morning 06/29/2020 12/14/19 24 senna-docusate (PERICOLACE) 8.6-50 mgIndications:const ipation Take 2 tablets by mouth 2 (two) times a day for 14 days 56 tablet 07/29/2020 12/14/19 24 sucralfate (CARAFATE) 1 gram tablet Take 2 tablets (2 g total) by mouth 2 (two) times a day as needed 12/14/19 24 documented as of this encounter Discharge Disposition Disposition Code Departure Means Destination Discharge to home or self care documented in this encounter Plan of Treatment Not on file documented as of this encounter Procedures Procedure Name Priority Date/Time Associated Diagnosis Comments CT LUMBAR SPINE WO CONTRAST Schedule Routine, Read Routine (OP Routine) 06/08/2023 9:39 AM [facility] Fusion of spine of lumbar region documented in this encounter Results * CT Lumbar Spine WO Contrast (06/08/2023 9:39 AM [facility]) Anatomical Region Laterality Modality Spine N/A Computed Tomogra phy 06/08/2023 10:2 4 AM [facility] Impressions 06/08/2023 10:45 AM [facility] Postoperative changes of revision posterior instrumented fusion and combined anterior interbody fusion with unchanged lucency surrounding L1 pedicle screws consistent with loosening and unchanged osseous nonunion of L1-L2. Dictated by: Kale Scott M.D. The radiology attending physician has personally reviewed this study, and had reviewed and/or edited this written report and agrees with it. Electronically signed by: Rere Peralta M.D. Narrative 06/08/2023 10:45 AM [facility] EXAMINATION: CT of the lumbar spine without contrast HISTORY: Spine fusion, follow-up, possible nonunion TECHNIQUE: CT of the lumbar spine was performed according to the standard protocol without intravenous contrast. COMPARISON: 07/08/2022 FINDINGS: Again seen are postsurgical changes of revised L1-L4 posterior spinal fusion with combined interbody fusion of L2-S1. ??Superimposed changes of posterior decompression from L2 through S1 are also noted. ??There is fusion of posterior elements from L2 through S1. ??There is unchanged lucency surrounding bilateral L1 pedicle screws and osseous nonunion of L1-L2. ??There is moderate to severe neuroforaminal stenosis bilaterally at L2-L3. Cholecystectomy clips. ??Atherosclerosis of the nonaneurysmal abdominal aorta. ??Atrophy of the psoas and paraspinal musculature. Procedure Note Rere Colvin MD - 06/08/2023 EXAMINATION: CT of the lumbar spine without contrast HISTORY: Spine fusion, follow-up, possible nonunion TECHNIQUE: CT of the lumbar spine was performed according to the standard protocol without intravenous contrast. COMPARISON: 07/08/2022 FINDINGS: Again seen are postsurgical changes of revised L1-L4 posterior spinal fusion with combined interbody fusion of L2-S1. Superimposed changes of posterior decompression from L2 through S1 are also noted. There is fusion of posterior elements from L2 through S1. There is unchanged lucency surrounding bilateral L1 pedicle screws and osseous nonunion of L1-L2. There is moderate to severe neuroforaminal stenosis bilaterally at L2-L3. Cholecystectomy clips. Atherosclerosis of the nonaneurysmal abdominal aorta. Atrophy of the psoas and paraspinal musculature. IMPRESSION: Postoperative changes of revision posterior instrumented fusion and combined anterior interbody fusion with unchanged lucency surrounding L1 pedicle screws consistent with loosening and unchanged osseous nonunion of L1-L2. Dictated by: Kale Scott M.D. The radiology attending physician has personally reviewed this study, and had reviewed and/or edited this written report and agrees with it. Electronically signed by: Rere Peralta M.D. Jeremy Michelle MD IMG CT PROCEDURES Fi nal Result documented in this encounter Visit Diagnoses Diagnosis Fusion of spine of lumbar region documented in this encounter Care Teams Floral Designer Relationship Specialty Start Date End Date Enmanuel Gan MD [address] [place] [address] PCP - General Internal Medicine 04/26/20 Tg Houston MD [address] [place] [address] Consulting Physician Cardiology 07/18/20 Guerrero Hunter DPT [address] [facility] [address] [place], [place] [id number] Physical Therapist Physical Therapy 11/08/20 Guerrero Weiner, [facility] [address] [facility] [place] [address] [place] [address] Director Of Slot Operations Physical Therapy 12/12/20 documented as of this encounter
--- OUTSIDE RECORDS SUMMARY | 2024-07-12 08:44 | XMS_ITS | Encounter Summary ---
Author Organization [facility] Healthcare Address [address] [place] [address] Care Team Providers Care Patent Prosecution Paralegal Name Role Phone Enmanuel Gan MD Primary Care Provider [phone] Tg Houston MD Unavailable [phone] Guerrero Hunter DPT Unavailable [phone] Guerrero Weiner FORMER HAND Unavailable [phone] Reason for Visit * Reason Onset Date Comments send records 06/29/2023 Encounter Details Date Type Department Care Team (Late st Contact Info) Description 06/29/2023 Telephone [facility] Medical Group Cardiology [address] [facility] [address] [place] [address] Jayda Vinson MD [address] [place] [address] send records Social History Tobacco Use Types Packs/Day Years [...] often do you attend chur ch or denominational services? Never 07/30/2020 Do you belong to any clubs o r organizations such as anglican groups, unions, fraternal or athletic groups, or [...] on file Legal Sex Female 9:09 PM TAR AND AMMONIA PUMP OPERATOR Gender Identity Not on file Sexual Orientation Lesbian 05/24/2019 9: 06 AM CDT documented as of this encounter Miscellaneous Notes * Telephone Encounter - Tootie Castaneda RN - 06/30/2023 7:58 AM TAR AND AMMONIA PUMP OPERATOR Will forward messages from KAVON to Adriane for assistance with faxing records. Thank you Per KAVON: Tried to fax ast OV but wouldn't take the prefix (for [place]) of 49. Send (tried to send) info to: [phone], or basically [phone]. Pleas see what can be sent for the assistance of our pt. AND AMMONIA PUMP OPERATOR * Telephone Encounter - Jayda Vinson MD - 06/29/2023 7:27 PM TAR AND AMMONIA PUMP OPERATOR This New Years Evening baby requests her medical records be sent to [facility]. Needs the latest US /Echo result be sent to [facility] in [facility]. They are doing an angioplasty. Please make sure this info gets there [phone] Dr. Hawthorne: FYI AND AMMONIA PUMP OPERATOR documented in this encounter Plan of Treatment Not on file documented as of this encounter Visit Diagnoses Not on filedocumented in this encounter Care Teams Patent Prosecution Paralegal Relationship Specialty Start Date End Date Enmanuel Gan MD [address] INTERNAL MEDICINE [place], [place] [id number] PCP - General Internal Medicine 04/26/20 Tg Houston MD [address] [place] [address] Consulting Physician Cardiology 07/18/20 Guerrero Hunter DPT [address] [facility] [address] [place] [address] Physical Therapist Physical Therapy 11/08/20 Guerrero Weiner, FORMER HAND [address] [facility] [address] [place] [address] Replenishment Buyer Physical Therapy 12/12/20 documented as of this encounter
--- OUTSIDE RECORDS SUMMARY | 2024-07-12 08:44 | XMS_ITS | Encounter Summary ---
Author Organization [facility] Healthcare Address [address] [place] [address] Care Team Providers Care Ammunition Assembly I Laborer Name Role Phone Enmanuel Gan MD Primary Care Provider [phone] Tg Houston MD Unavailable [phone] Guerrero Hunter DPT Unavailable [phone] Guerrero Weiner PORTAL ADMINISTRATOR Unavailable [phone] Reason for Visit * Reason Onset Date Comments Problem 06/29/2023 Encounter Details Date Type Department Care Team (Late st Contact Info) Description 06/29/[address] [facility] Medical Group Cardiology [address] [place] [address] Jayda Vinson MD [address] [place] [address] Problem Social History Tobacco Use Types Packs/Day [...] week 07/30/2020 How often do you attend [facility] or confucianism services? Never 07/30/2020 Do you belong to any clubs o r organizations such as restorationism groups, unions, fraternal or athletic groups, or [...] on file Legal Sex Female 9:09 PM STRESS TEST TECHNICIAN Gender Identity Not on file Sexual Orientation Lesbian 05/24/2019 9: 06 AM CDT documented as of this encounter Miscellaneous Notes * Telephone Encounter - Jayda Vinson MD - 06/29/2023 7:52 PM STRESS TEST TECHNICIAN Rec'd a notification via [employer]. Pt in hosp in [facility]. Pt requests records, recent US sent to [facility]. Tried multiple times, multiple different approaches to send office info. Dont' think I was ever successful Left voicemail to call if I could be of urgent assistance. Otherwise please try to send info via phone #: [phone]. Pt reports they are going to do an angioplasty. Thank you for taking care of a patient in need. SS TEST TECHNICIAN documented in this encounter Plan of Treatment Not on file documented as of this encounter Visit Diagnoses Not on filedocumented in this encounter Care Teams Ammunition Assembly I Laborer Relationship Specialty Start Date End Date Enmanuel Gan MD [address] [place] [address] PCP - General Internal Medicine 04/26/20 Tg Houston MD [address] [facility] [address] [place] [address] Consulting Physician Cardiology 07/18/20 Guerrero Hunter DPT [address] [facility] [address] [facility] [place] [address] Physical Therapist Physical Therapy 11/08/20 Guerrero Weiner PTA [address] [place] [address] Regional Maintenance Manager Physical Therapy 12/12/20 documented as of this encounter
--- OUTSIDE RECORDS SUMMARY | 2024-07-12 08:44 | XMS_ITS | Encounter Summary ---
Author Organization [facility] Healthcare Address [address] [place] [address] Care Team Providers Care Station Helper Name Role Phone Enmanuel Gan MD Primary Care Provider [phone] Tg Houston MD Unavailable [phone] Guerrero Hunter DPT Unavailable [phone] Guerrero Weiner VP ANCILLARY Unavailable [phone] Encounter Details Date Type Department Care Team (Latest Contact Info) Description 06/09/2023 10:48 PM YARD WAREHOUSE WORKER - 06/09/2023 11:59 PM YARD WAREHOUSE WORKER Hospital Encounter [facility] Radiology [facility] [address] [place] [address] Discharge Disposition: Discharge to home or self [...] How often do you attend chur or restoration services? Never 07/30/2020 Do you belong to any clubs o r organizations such as zoroastrian groups, unions, fraternal or athletic groups, or [...] on file Legal Sex Female 9:09 PM YARD WAREHOUSE WORKER Gender Identity Not on file Sexual [...] Name Priority Date/Time Associated Diagnosis Comments XR TRANSFER OF OUTSIDE FILMS Routine 06/09/2023 10:48 PM YARD WAREHOUSE WORKER documented in this encounter Results * XR Outside Reference (06/09/2023 10:48 PM YARD WAREHOUSE WORKER) Impressions [facility] - 06/09/2023 10:48 PM YARD WAREHOUSE WORKER These images are for Reference purposes only and have not been reviewed by [facility] Radiology. ??There will be no report generated by a [facility] Radiologist. Narrative [facility]_P[facility] - 06/09/2023 10:48 PM YARD WAREHOUSE WORKER EXAMINATION: ??Images For Reference Purposes Only us Meño Tavares MD IMG XR PROCEDURES Fin al Result [facility] documented in this encounter Visit Diagnoses Not on filedocumented in this encounter Care Teams Station Helper Relationship Specialty Start Date End Date Enmanuel Gan MD [address] [facility] [address] [place] [address] PCP - General Internal Medicine 04/26/20 Tg Houston MD [address] [place] [address] Consulting Physician Cardiology 07/18/20 Guerrero Hunter DPT [address] [facility] [address] [facility] [place] [address] Physical Therapist Physical Therapy 11/08/20 Guerrero Weiner, [facility] [address] [facility] [address] [place] [address] Bookmobile Driver Physical Therapy 12/12/20 documented as of this encounter
--- OUTSIDE RECORDS SUMMARY | 2024-07-12 08:44 | XMS_ITS | Encounter Summary ---
Author Organization [facility] Healthcare Address [address] [place] [address] Care Team Providers Care Hand Ornament Maker Name Role Phone Enmanuel Gan MD Primary Care Provider [phone] Tg Houston MD Unavailable [phone] Guerrero Hunter DPT Unavailable [phone] Guerrero Weiner EDGE SANDER Unavailable [phone] Encounter Details Date Type Department Care Team (Late st Contact Info) Description 06/29/2023 Telephone [facility] Medical Group Cardiology [address] [place] [address] Jayda Vinson MD [address] [place] [address] Social History Tobacco Use Types [...] week 07/30/2020 How often do you attend [facility] or yazidism services? Never 07/30/2020 Do you belong to [...] on file Legal Sex Female 9:09 PM CAPSULE MAKER Gender Identity Not on file Sexual Orientation Lesbian 05/24/2019 9: 06 AM CDT documented as of this encounter Miscellaneous Notes * Telephone Encounter - Jayda Vinson MD - 06/29/2023 7:40 PM CAPSULE MAKER Tried to fax ast OV but wouldn't take the prefix (for Shakir) of 49. Send (tried to send) info to: [phone] or basically [phone]. Pleas see what can be sent for the assistance of our pt. ULE MAKER documented in this encounter Plan of Treatment Not on file documented as of this encounter Visit Diagnoses Not on filedocumented in this encounter Care Teams Hand Ornament Maker Relationship Specialty Start Date End Date Enmanuel Gan MD [address] [place] [id number] PCP - General Internal Medicine 04/26/20 Tg Houston MD [address] [place] [address] Consulting Physician Cardiology 07/18/20 Guerrero Hunter DPT [address] [facility] [address] [facility] [place], [place] [id number] Physical Therapist Physical Therapy 11/08/20 Guerrero Weiner, EDGE SANDER [address] [facility] [address] [place], [place] [id number] Oil And Gas Drafter Physical Therapy 12/12/20 documented as of this encounter
--- OUTSIDE RECORDS SUMMARY | 2024-07-12 08:44 | XMS_ITS | Encounter Summary ---
Author Organization [facility] Healthcare Address [address] [place] [address] Care Team Providers Care Electrician Supervisor Substation Name Role Phone Enmanuel Gan MD Primary Care Provider [phone] Tg Houston MD Unavailable [phone] Guerrero Hunter DPT Unavailable [phone] Guerrero Weiner SHIRT CLEANER Unavailable [phone] Reason for Visit * Reason Onset Date Comments Sending info 06/29/2023 Encounter Details Date Type Department Care Team (Late st Contact Info) Description 06/29/[address] [facility] Medical Group Cardiology [address] [facility] [address] [place] [address] Jayda Vinson MD [address] [place] [address] Sending info Social History Tobacco Use Types Packs/Day Years [...] often do you attend chur ch or worship services? Never 07/30/2020 Do you belong to any clubs o r organizations such as taoist groups, unions, fraternal or athletic groups, or [...] on file Legal Sex Female 9:09 PM HOUSECLEANER Gender Identity Not on file Sexual Orientation Lesbian 05/24/2019 9: 06 AM CDT documented as of this encounter Miscellaneous Notes * Telephone Encounter - Jayda Vinson MD - 06/29/2023 7:35 PM HOUSECLEANER Macie- Hope you are OK !! Sending info --- [facility] Medical group Cariology DR. Tobar ECLEANER documented in this encounter Plan of Treatment Not on file documented as of this encounter Visit Diagnoses Not on filedocumented in this encounter Care Teams Electrician Supervisor Substation Relationship Specialty Start Date End Date Enmanuel Gan MD [address] [place] [address] PCP - General Internal Medicine 04/26/20 Tg Houston MD [address] [place] [address] Consulting Physician Cardiology 07/18/20 Guerrero Hunter DPT [address] [facility] [address] [facility] [place], [place] [id number] Physical Therapist Physical Therapy 11/08/20 Guerrero Weiner, SHIRT CLEANER [address] [facility] [address] [place], [place] [id number] Instructional Technology Coordinator Physical Therapy 12/12/20 documented as of this encounter
--- OUTSIDE RECORDS SUMMARY | 2024-07-12 08:44 | XMS_ITS | Encounter Summary ---
Author Organization [facility] Address [address] [place] [address] Phone Care Team Providers Care Clinical Assoc Name Role Phone Enmanuel Gan MD Primary Care Provider [phone] Tg Houston MD Unavailable [phone] Guerrero Hunter DPT Unavailable [phone] Guerrero Weiner WEIGHT TESTER Unavailable [phone] Reason for Visit * Reason Comments Pain Encounter Details Date Type Department Care Team (Late st Contact Info) Description 06/09/2023 9:30 AM STOCK FEEDER Office Visit [facility] Orthopaedic Surgery [address] [facility] 1[address] [place] [address] Meño Tavares MD [address] [facility] [address] [place] [address] Glenohumeral arthritis, left (Primary Dx) Social History Tobacco Use Types [...] attend chur ch or muslim services? Never 07/30/2020 Do you belong to [...] on file Legal Sex Female 9:09 PM STOCK FEEDER Gender Identity Not on file Sexual Orientation Lesbian 05/24/2019 9: 06 AM CDT documented as of this encounter Progress Notes * Meño Tavares MD - 06/09/2023 9:30 AM CST Images from the original note were not included. NEW PATIENT VISIT Subjective CHIEF COMPLAINT Left shoulder pain HISTORY OF PRESENT ILLNESS Macie Briseno is a 77-year-old right-hand dominant female who presents with left shoulder pain. Patient states that her pain began in October 2022. She began to do physical therapy and states that his symptoms were improving. However she recently fell in all this and believes that her fall worsened her shoulder pain. She notices bruising around her chest wall and shoulder and states that her symptoms worsened. She localizes the pain to the lateral and inferior aspect of the shoulder. She states that the pain is worse with behind the back activities as well as any lifting activities. She takes Tylenol for her symptoms with some relief. She can not take NSAIDs because she is had prior revision T12-L4 posterior spinal fusion with Dr. Michelle and was told not to take them. She has not had a corticosteroid injection. She saw Dr. Lindsey at [facility] who recommended a reverse shoulder arthroplasty. He obtain an ultrasound of her shoulder which demonstrated a supraspinatus tear. However the patient does have an ICD and is on Eliquis and was unable to obtain surgery with hisfacilities. The patient is in clinic today to discuss surgical intervention. PAST MEDICAL HISTORY She has a past medical history of Allergic rhinitis, Anxiety (unknown maybe 1989), Arthritis (2018), Atrial fibrillation (CMS/HCC) (HCC), Auditory vertigo, Coronary artery disease, Depression (1989),Heart disease (Afib 2019), HL (hearing loss), HLD (hyperlipidemia), Meniere's disease, Microvascular angina, Mixed conductive and sensorineural hearing loss (1989), Osteoporosis (2013), and Tinnitus. She has no past medical history of Acute respiratory failure requiring reintubation (CMS/HCC) (HCC), Awareness under anesthesia, Delayed emergence from general anesthesia, Hard to intubate, Malignanthyperthermia, Motion sickness, PONV (postoperative nausea and vomiting), Postoperative delirium, Pse udocholinesterase deficiency, or Sleep apnea. PAST SURGICAL HISTORY She has a past surgical history that includes Other surgical history (1998); Cholecystectomy; Jointreplacement; Back surgery (2016); Vestibular nerve section (Left); Cochlear implant (Left, 06/19/2020); IR Injection Arthrogram SI Joint Bilateral includes Imaging Guidance (Bilateral, 02/15/2021); Total hip arthroplasty (Bilateral, 2014); IR Injection Arthrogram SI Joint Left Includes Imaging Guidance (Left, 09/06/2021); Brain surgery (Left Ear cochlear implant 2019); and Spine surgery (2017, 2017, 2018, 2019). INITIAL REVIEW OF MEDICATIONS She has a current medication list which includes the following prescription(s): alprazolam, atorvastatin, azelastine, calcium acetate(phosphat bind), diltiazem xr, doxepin, duloxetine , duloxetine , eliquis, fexofenadine- pseudoephedrine, fluticasone propionate, furosemide, furosemide, hydrocodone- acetaminophen, magnesium citrate, potassium chloride er, and sucralfate. DRUG ALLERGIES She is allergic to adhesive, chlorhexidine, sulfa (sulfonamide antibiotics), and gabapentin. FAMILY HISTORY Her family history includes Cancer in her mother; Hypertension in her mother; No Known Problems in her brother, father, father's brother, father's sister, maternal grandfather, maternal grandmother, mother's brother, mother's sister, paternal grandfather, paternal grandmother, and sister. REVIEW OF SYSTEMS 12 point review of systems conducted by me is negative except for what is noted in the HPI. Objective PHYSICAL EXAMINATION Patient is alert and oriented x 3 and in no acute distress. Mood and affect are within normal limits. Respirations non-labored. Hearing intact to spoken word. No pain with palpation of the cervical spine. Normal cervical spine motion. Spurling's test is negative. Shoulders are symmetric. There is no evidence of atrophy in the infraspinatus fossa. Skin is intact. Focused examination of the leftShoulder: Range of motion: Forward elevation in the scapular plane 155 degrees vs.165 degrees on the other side External rotation with the arm at the side 55 degrees vs. 55 degrees on the other side External rotation with the arm in abduction 70 degrees, weakness Internal rotation behind the back lumbar spine vs. Mid thoracic on the other side Glenohumeral crepitus is notpresent during range of motion exam Strength with thumbs-down abduction is 4/5 Strength in external rotation with the arms at the side is 5/5. Abdominal compression test: negative Lag sign: negative Hornblower's sign: negative Deltoid is firing normally Impingement testing: positive Acromioclavicular joint: nontender Biceps signs: negative Distal motor and sensory function in the axillary, radial, ulnar and median nerve distributions is normal Skin is warm and well perfused REVIEW OF X-RAYS/STUDIES I have reviewed of the left shoulder obtained on 05/25/2023 which demonstrate glenohumeral joint space narrowing and an inferior osteophyte of the humeral head. There is narrowing and sclerotic changes of the AC joint. Assessment/Plan IMPRESSION/DIAGNOSIS Patient is a 77-year-old female who presents with left shoulder glenohumeral arthritis. TREATMENT PLAN We would an extensive conversation with the patient today regarding her diagnosis and treatment options. We did explain to the patient today that she has great function of her left shoulder but we did acknowledge that she does have pain. We did explain that a reverse shoulder replacement would helpwith her pain but she may have worse function after her surgery. At this time, we would recommend that she trial a fluoroscopic guided corticosteroid injection to try to localize an help with her pain. She is also been having good relief with physical therapy so we would recommend that she continuewith that today. We did explain that if her symptoms do worsen or she feels like her function is wor sening, and we would recommend a reverse shoulder arthroplasty at that time. The patient understoodand agreed with continuing with nonoperative management at this at this time. We would like to see the patient back in about 3 months after her fluoroscopic guided corticosteroid injection to see howher symptoms are. We will renew her physical therapy prescription in clinic today. All the patient's questions were answered at today's clinic visit. FOLLOW-UP In 3 months for repeat evaluation Dictated by: Carrie Heck MD, MPHS Orthopaedic Surgery PGY-4 [facility] ATTENDING ADDENDUM The patient was seen today with the resident/fellow. I was present for the history, physical exam, case discussion and plan. I agree with documented, history, physical exam, and Assessment and Plan as dictated in the full clinic note. My total encounter time on 06/09/2023 was 45 minutes which was spent in the activities documented in the note. This includes time spent prior to the visit and after the visit in direct care of the patient. This time does not include time spent in any separately reportable services. Meño Tavares MD Acoustic Engineer of Orthopedic Surgery Shoulder and Elbow Service [facility] Dr. Heck dictating using Fluency Direct. Optical Lathe Operator variances may occur. K FEEDER documented in this encounter Plan of Treatment Not on file documented as of this encounter Visit Diagnoses Diagnosis Glenohumeral arthritis, left- Primary documented in this encounter Care Teams Clinical Assoc Relationship Specialty Start Date End Date Enmanuel Gan MD [address] [place] [address] PCP - General Internal Medicine 04/26/20 Tg Houston MD [address] [facility] [address] [place] [address] Consulting Physician Cardiology 07/18/20 Guerrero Hunter DPT [address] [facility] [address] [facility] [place], [place] [id number] Physical Therapist Physical Therapy 11/08/20 Guerrero Weiner, WEIGHT TESTER [address] [facility] [address] [place], [place] [id number] Pole Shaver Physical Therapy 12/12/20 documented as of this encounter
--- OUTSIDE RECORDS SUMMARY | 2024-07-12 08:44 | XMS_ITS | Encounter Summary ---
Author Organization [facility] Healthcare Address [address] [place] [address] Care Team Providers Care Cane Splicer Name Role Phone Enmanuel Gan MD Primary Care Provider [phone] Tg Houston MD Unavailable [phone] Guerrero Hunter DPT Unavailable [phone] Guerrero Weiner CARPENTER ROUGH Unavailable [phone] Encounter Details Date Type Department Care Team (Late st Contact Info) Description 05/25/2023 Orders Only [facility] Health Information Management [address] [place] [address] Scanning, Provider Social History Tobacco Use Types Packs/Day Years [...] any clubs o r organizations such as protestant groups, unions, fraternal or athletic groups, or [...] on file Legal Sex Female 9:09 PM BILLING AUDITOR Gender Identity Not on file Sexual Orientation Lesbian 05/24/2019 9: 06 AM CDT documented as of this encounter Plan of Treatment Not on file documented as of this encounter Procedures Procedure Name Priority Date/Time Associated Diagnosis Comments SCAN - OTHER ORDERS 05/25/2023 documented in this encounter Results * SCAN - OTHER ORDERS (05/25/2023) us Provider Scanning Final Result documented in this encounter Visit Diagnoses Not on filedocumented in this encounter Care Teams Cane Splicer Relationship Specialty Start Date End Date Enmanuel Gan MD [address] [place] [address] PCP - General Internal Medicine 04/26/20 Tg Houston MD [address] [place] [address] Consulting Physician Cardiology 07/18/20 Guerrero Hunter DPT [address] [facility] [address] [facility] [place] [address] Physical Therapist Physical Therapy 11/08/20 Guerrero Weiner, [facility] [address] [place] [address] Clinical Support Manager Physical Therapy 12/12/20 documented as of this encounter
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
--- OUTSIDE RECORDS SUMMARY | 2024-07-12 08:44 | XMS_ITS | Encounter Summary ---
Author Organization [facility] Healthcare Address [address] [place] [address] Care Team Providers Care Disc Pad Grinder Name Role Phone Enmanuel Gan MD Primary Care Provider [phone] Tg Houston MD Unavailable [phone] Guerrero Hunter DPT Unavailable [phone] Guerrero Weiner FLAME BRAZING MACHINE OPERATOR Unavailable [phone] Encounter Details Date Type Department Care Team (Latest Contact Info) Description 06/09/2023 10:46 PM ASSISTANT ACTIVITIES DIRECTOR - 06/09/2023 11:59 PM ASSISTANT ACTIVITIES DIRECTOR Hospital Encounter [facility] [address] [place] [address] Discharge Disposition: Discharge to home or self [...] How often do you attend chur or mormon services? Never 07/30/2020 Do you belong to [...] on file Legal Sex Female 9:09 PM ASSISTANT ACTIVITIES DIRECTOR Gender Identity Not on file Sexual [...] Procedure Name Priority Date/Time Associated Diagnosis Comments US TRANSFER OF OUTSIDE FILMS Routine 06/09/2023 10:46 PM ASSISTANT ACTIVITIES DIRECTOR documented in this encounter Results * US Outside Reference (06/09/2023 10:46 PM ASSISTANT ACTIVITIES DIRECTOR) Impressions [facility] - 06/09/2023 10:46 PM ASSISTANT ACTIVITIES DIRECTOR These images are for Reference purposes only and have not been reviewed by [facility] Radiology. ??There will be no report generated by a [facility] Radiologist. Narrative [facility] - 06/09/2023 10:46 PM ASSISTANT ACTIVITIES DIRECTOR EXAMINATION: ??Images For Reference Purposes Only us Meño Tavares MD IMG US PROCEDURES Fin al Result [facility] documented in this encounter Visit Diagnoses Not on filedocumented in this encounter Care Teams Disc Pad Grinder Relationship Specialty Start Date End Date Emnanuel Gan MD [address] [facility] [address] [place] [address] PCP - General Internal Medicine 04/26/20 Tg Houston MD [address] [place] [address] Consulting Physician Cardiology 07/18/20 Guerrero Hunter DPT [address] [facility] [address] [facility] [place] [address] Physical Therapist Physical Therapy 11/08/20 Guerrero Weiner, [facility] [address] [facility] [address] [place] [address] Garment Sewing Machine Operator Physical Therapy 12/12/20 documented as of this encounter
--- OUTSIDE RECORDS SUMMARY | 2024-07-12 08:44 | XMS_ITS | Encounter Summary ---
Author Organization [facility] Healthcare Address [address] [place] [address] Care Team Providers Care Clock Repairer Name Role Phone Enmanuel Gan MD Primary Care Provider [phone] Tg Houston MD Unavailable [phone] Guerrero Hunter DPT Unavailable [phone] Guerrero Weiner LABOUR MARKET ECONOMIST Unavailable [phone] Encounter Details Date Type Department Care Team (Late st Contact Info) Description 06/24/2023 Telephone Arrhythmia Center [address] [facility] [address] [place] [phone] Ashvin Recio III, MD [address] [facility] [address], [place] [address] Social History Tobacco Use Types [...] week 07/30/2020 How often do you attend [facility] or tenriism services? Never 07/30/2020 Do you belong to [...] on file Legal Sex Female 9:09 PM REGISTERED ROUTE ASSOCIATE Gender Identity Not on file Sexual Orientation Lesbian 05/24/2019 9: 06 AM CDT documented as of this encounter Miscellaneous Notes * Telephone Encounter - Michelle Oropeza MA - 06/25/2023 2:10 PM REGISTERED ROUTE ASSOCIATE Pt informed. STERED ROUTE ASSOCIATE * Telephone Encounter - Clara Thakkar NP - 06/25/2023 12:57 PM REGISTERED ROUTE ASSOCIATE No changes at this time. STERED ROUTE ASSOCIATE * Telephone Encounter - Michelle Oropeza MA - 06/24/2023 10:31 AM REGISTERED ROUTE ASSOCIATE Images from the original note were not included. Jacob Latif RN Kettinger, Martha A., MA Caller: Unspecified (Today, 9:26 AM) The patient had several episodes of AT/AF this morning the longest episode lasting 29 minutes average ventricular rates ranged from 110 beats per minute to 140 beats per minute. She does have known atrial fibrillation and is on Eliquis. Presenting rhythm this morning on download is a normal a sensed V sensed rhythm in the 70s. The remainder of the download was completely normal. STERED ROUTE ASSOCIATE * Telephone Encounter - Michelle Oropeza MA - 06/24/2023 9:24 AM REGISTERED ROUTE ASSOCIATE Pt reports having chest pain in the middle of the night. No SOB, or dizziness. She thought it may have been indigestion and took a Pepcid AC. The pain eventually diminished. She is leaving for [place] the end of the week and is concerned. Latitude report sent. Please advise. STERED ROUTE ASSOCIATE documented in this encounter Plan of Treatment Not on file documented as of this encounter Visit Diagnoses Not on filedocumented in this encounter Care Teams Clock Repairer Relationship Specialty Start Date End Date Enmanuel Gan MD [address] [place] [address] PCP - General Internal Medicine 04/26/20 Tg Houston MD [address] [facility] [address] [place] [address] Consulting Physician Cardiology 07/18/20 Guerrero Hunter DPT [address] [facility] [address] [address] Physical Therapist Physical Therapy 11/08/20 Guerrero Weiner, ELIAN [id number] [place] [address] Staffing Coordinator Physical Therapy 12/12/20 documented as of this encounter
--- OUTSIDE RECORDS SUMMARY | 2024-07-12 08:45 | XMS_ITS | Encounter Summary ---
Author Organization [facility] Address [address] [facility] [address] [place] [address] Care Team Providers Care Java Architect Name Role Phone Enmanuel Gan MD Primary Care Provider [phone] Tg Houston MD Unavailable [phone] Guerrero Hunter DPT Unavailable [phone] Guerrero Weiner VIDEO GAME ENGINEER Unavailable [phone] Reason for Visit * Reason Comments Atrial Fibrillation Cardiomyopathy Hypertension One mo f/u Encounter Details Date Type Department Care Team (Late st Contact Info) Description 12/23/2022 2:00 PM CDT Office Visit [facility] Cardiology [address] [facility] [address] [place] [address] Jeremy Hobbs MD [facility] [address] SNIDER (dyspnea on exertion) (Primary Dx); Essential hypertension; Microvascular angina (CMS/HCC) (HCC); Paroxysmal atrial fibrillation (CMS/HCC) (HCC); ICD (implantable cardioverter-defibril lator), dual, in situ [...] , or living with a partner? 07/30/2020 Overall Financial Resource Strain (CARDIA) Answe r [...] on file Legal Sex Female 9:09 PM PLANER HAND Gender Identity Not on file Sexual Orientation Lesbian 05/24/2019 9: 06 AM CDT documented as of this encounter Last Filed Vital Signs Vital Sign Reading Time Taken Comments Blood Pressure 114/60 12/23/2022 2:12 PM CDT Pulse 80 12/23/2022 2:12 PM CDT Temperature - - Respiratory Rate - - Oxygen Saturation 96% 12/23/2022 2:12 PM CDT Inhaled Oxygen Concentration - - Weight 77.6 kg (171 lb) 12/23/2022 2:12 PM CDT Height 162.6 cm (5' 4 ) 12/23/2022 2:12 PM CDT Body Mass Index 29.35 12/23/2022 2:12 PM CDT documented in this encounter Progress Notes * Jeremy Hobbs MD - 12/23/2022 2:00 PM CDT Images from the original note were not included. [facility]-Cardiology DATE OF VISIT: 12/23/2022 CHIEF COMPLAINT Chief Complaint Patient presents with ??? Atrial Fibrillation ??? Cardiomyopathy ??? Hypertension One mo f/u HPI Macie Briseno is a 77 y.o. 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 Formally seen at [facility] and is here to establish care [...] In March 2021 she was hospitalized at [facility] again for shortness of breath, weakness, lightheadedness [...] syncope, presyncope, paroxysmal nocturnal dyspnea orthopnea edema. MEDICAL HISTORY Past Medical History: Diagnosis Date ??? Allergic rhinitis ??? Anxiety unknown maybe 1989 ??? Arthritis 2018 ??? Atrial fibrillation (CMS/HCC) (HCC) ??? Auditory vertigo Meniere's disease ??? Coronary artery disease ??? Depression 1989 ??? Heart disease Afib 2019 ??? HL (hearing loss) ??? HLD (hyperlipidemia) ??? Meniere's disease ??? Microvascular angina (CMS/HCC) (HCC) ??? Mixed conductive and sensorineural hearing loss 1989 ??? Osteoporosis 2013 ??? Tinnitus Social History Tobacco Use ??? Smoking status: Never ??? Smokeless tobacco: Never Substance and Sexual Activity ??? Drug use: Not Currently Comment: cbd oil topically ??? Sexual activity: Not Currently Partners: Female control/protection: None Comment: same sex Alcohol Use: Not on file Family History Problem Relation Age of Onset ??? Hypertension Mother ??? Cancer Mother ??? No Known Problems Father ??? No Known Problems Sister ??? No Known Problems Brother ??? No Known Problems Mother's Sister ??? No Known Problems Mother's Brother ??? No Known Problems Father's Sister ??? No Known Problems Father's Brother ??? No Known Problems Maternal Grandmother ??? No Known Problems Maternal Grandfather ??? No Known Problems Paternal Grandmother ??? No Known Problems Paternal Grandfather ??? Anemia Neg Hx ??? Arrhythmia Neg Hx ??? Asthma Neg Hx ??? Clotting disorder Neg Hx ??? Fainting Neg Hx ??? Heart attack Neg Hx ??? Heart disease Neg Hx ??? Heart failure Neg Hx ??? Hyperlipidemia Neg Hx ??? Hypertrophic cardiomyopathy Neg Hx ??? Stroke Neg Hx ??? Sudden Cardiac Neg Hx ??? Anesthesia problems Neg Hx MEDICATIONS Medication List Accurate as of December 23, 2022 2:19 PM. If you have any questions, ask your nurse or doctor. CHANGE how you take these medications fluticasone propionate 50 mcg/actuation nasal spray Commonly known as: FLONASE inhale 1 spray (50MCG) by intranasal route every day in each nostril What changed: how to take this when to take this CONTINUE taking these medications ALPRAZolam 0.25 mg tablet Commonly known as: XANAX Take 1 tablet (0.25 mg total) by mouth nightly as needed for anxiety atorvastatin 20 mg tablet Commonly known as: LIPITOR azelastine 137 mcg (0.1 %) nasal spray Commonly known as: ASTELIN calcium acetate(phosphat bind) 667 mg capsule Commonly known as: PHOSLO cefuroxime 500 mg tablet Commonly known as: CEFTIN dilTIAZem XR 180 mg 24 hr capsule Commonly known as: CARDIZEM CD,DILACOR XR Take 1 capsule (180 mg total) by mouth daily DULoxetine DR 30 mg capsule Commonly known as: CYMBALTA Eliquis 5 mg tablet Generic drug: apixaban fexofenadine-pseudoephedrine 60-120 mg per 12 hr tablet Commonly known as: THELMA-D furosemide 20 mg tablet Commonly known as: LASIX Take 1 tablet (20 mg total) by mouth daily HYDROcodone-acetaminophen 5-325 mg per tablet Commonly known as: NORCO magnesium citrate 100 mg tablet mirtazapine 15 mg tablet Commonly known as: REMERON potassium chloride ER 20 mEq CR tablet Commonly known as: KLOR-CON sucralfate 1 gram tablet Commonly known as: CARAFATE traZODone 50 mg tablet Commonly known as: DESYREL ALLERGIES Allergies Allergen Reactions ??? Adhesive Rash and Blisters Surgical tape ??? Chlorhexidine Rash ??? Sulfa (Sulfonamide Antibiotics) Hives and Rash ??? Gabapentin Other (See comments) Retain water REVIEW OF SYSTEMS Review of Systems Constitutional: Negative for weight gain and weight loss. HENT: Negative for hearing loss. Eyes: Negative for blurred vision and visual disturbance. Cardiovascular: Positive for dyspnea on exertion and palpitations. Negative for chest pain, claudication, irregular heartbeat, leg swelling, near-syncope, orthopnea, paroxysmal nocturnal dyspnea and syncope. Respiratory: Negative for cough, hemoptysis, shortness of breath, snoring, sputum production and wheezing. Endocrine: Negative for cold intolerance, heat intolerance and polyuria. Hematologic/Lymphatic: Does not bruise/bleed easily. Skin: Negative for color change and rash. Musculoskeletal: Negative for falls, joint pain, joint swelling and myalgias. Gastrointestinal: Negative for abdominal pain, heartburn, nausea and vomiting. Genitourinary: Negative for dysuria. Neurological: Negative for dizziness, focal weakness, headaches, light- headedness, numbness and weakness. Psychiatric/Behavioral: Negative for depression. The patient is not nervous/anxious. Allergic/Immunologic: Negative for environmental allergies. PHYSICAL EXAM Blood pressure 114/60, pulse 80, height 162.6 cm (5' 4 ), weight 77.6 kg (171 lb), SpO2 96 %. Body mass index is 29.35 kg/m??. Physical Exam Vitals reviewed. Constitutional: Appearance: Normal appearance. HENT: Head: Normocephalic and atraumatic. Nose: Nose normal. Eyes: General: No scleral icterus. Conjunctiva/sclera: Conjunctivae normal. Cardiovascular: Rate and Rhythm: Normal rate and regular rhythm. Pulses: Intact distal pulses. Heart sounds: Normal heart sounds. No murmur heard. No friction rub. No gallop. Pulmonary: Effort: Pulmonary effort is normal. No respiratory distress. Breath sounds: Normal breath sounds. No wheezing or rales. Chest: Chest wall: No tenderness. Abdominal: General: Bowel sounds are normal. There is no distension. Palpations: Abdomen is soft. Tenderness: There is no abdominal tenderness. Musculoskeletal: General: Normal range of motion. Cervical back: Neck supple. Skin: General: Skin is warm and dry. Neurological: Mental Status: She is alert and oriented to person, place, and time. Psychiatric: Mood and Affect: Mood normal. LABS AND OTHER DIAGNOSTIC TESTS Lab Results Component Value Date WBC 4.8 05/30/2021 HGB 14.8 05/30/2021 HCT 44.7 05/30/2021 MCV 89.0 05/30/2021 Chemistry Component Value Date/Time SODIUM 138 07/01/2022 1108 SODIUM 141 05/30/2021 0758 POTASSIUM 4.1 07/01/2022 1108 POTASSIUM 3.6 05/30/2021 0758 CHLORIDE 103 07/01/2022 1108 CHLORIDE 104 05/30/2021 0758 CO2 29 07/01/2022 1108 CO2 30 05/30/2021 0758 BUNSER 14 07/01/2022 1108 BUNSER 16 05/30/2021 0758 CREATININE 0.74 07/01/2022 1108 CREATININE 0.88 05/30/2021 0758 GLUCOSE 94 07/01/2022 1108 GLUCOSE 91 05/30/2021 0758 Component Value Date/Time CALCIUM 9.6 07/01/2022 1108 CALCIUM 9.4 05/30/2021 0758 ALKPHOS 100 07/25/2020 1404 AST 135 (H) 07/25/2020 1404 ALT 86 (H) 07/25/2020 1404 BILITOT 0.4 07/25/2020 1404 Lab Results Component Value Date CHOL 188 08/30/2015 Lab Results Component Value Date HDL 64 08/30/2015 LDL Date Value Ref Range Status 08/30/2015 94 <130 mg/dl Comment: Desirable range <100 mg/dL for patients with CHD or diabetes and <70 mg/dL for diabetic patients with known heart disease. ] No results found for: LDLCALC Lab Results Component Value Date TRIG 148 08/30/2015 Lab Results Component Value Date CHOLHDL 2.9 08/30/2015 EKG 11/28/2022: Normal sinus rhythm with premature atrial contractions, left ventricular hypertrophy and inferolateral ST and T-wave abnormality, consistent with hypertrophy versus ischemia. AbnormalEKG. Echo 07/16/2022 1. Normal global and regional left ventricular systolic function. LV systolic function is hyperdynamic. Ejection Fraction is estimated at 75 %. Left ventricular diastolic function is indeterminate. The [...] the patient is in normal sinus rhythm. MPI 2020 Normal Cardiac MRI March 2021 Normal biventricular systolic function. LV EF of 61%. No myocardial damage. Asymmetric LV apical hypertrophy is present consistent with the diagnosis of apical hypertrophic cardiomyopathy. MPI 12/17/2022 Sinus rhythm. Nonspecific T wave abnormality. Recommend follow up with manufacturing lab technician. Nonspecific T-wave abnormality persisted after regadenoson injection. Correlate with MPI. Global left ventricular function is normal. Left ventricular ejection fraction is 59 %. Myocardial perfusion imaging is normal. ASSESSMENT Diagnoses and all orders for this visit: Hypersomnolence (Primary) Possibly sleep apnea related Essential hypertension At goal Paroxysmal atrial fibrillation (CMS/HCC) (HCC) On anticoagulation Apical variant hypertrophic cardiomyopathy (HCC) Seen in 2020 but no LVH was seen hour at least described in most recent echo in 2021 Microvascular angina (CMS/HCC) (HCC) SNIDER (dyspnea on exertion) ? Etiology. Other possibilities include age, deconditioning, pacemaker hysteresis issues, underlying lung disease, sleep apnea versus other PLAN/RECOMMENDATIONS Awaiting sleep study. Pulmonary function study to evaluate her dyspnea Continue Eliquis for anticoagulation and atrial fibrillation. Follow-up in 2 months or sooner as clinically indicated Jeremy Hobbs MD, [facility] documented in this encounter Plan of Treatment Not on file documented as of this encounter Visit Diagnoses Diagnosis SNIDER (dyspnea on exertion)- Primary Other dyspnea and respiratory abnormality Essential hypertension Unspecified essential hypertension Microvascular angina (HCC) Paroxysmal atrial fibrillation (CMS/HCC) (HCC) Atrial fibrillation ICD (implantable cardioverter-defibrillator), dual, in situ documented in this encounter Historical Medications * This list may reflect changes made after this encounter. mirtazapine (REMERON) 15 mg tablet Take 1 tablet (15 mg total) by mouth nightly at bedtime 12/17/2022 03/24/2023 added in this encounter Care Teams Java Architect Relationship Specialty Start Date End Date Enmanuel Gan MD [address] [facility] [address] [place] [address] PCP - General Internal Medicine 04/26/20 Tg Houston MD [address] [facility] [address] [place] [address] Consulting Physician Cardiology 07/18/20 Guerrero Hunter DPT [address] [facility] [address] [facility] [place], [place] [id number] Physical Therapist Physical Therapy 11/08/20 Guerrero Weiner, [facility] [id number] [place], [place] [id number] Shipping Order Clerk Physical Therapy 12/12/20 documented as of this encounter
--- OUTSIDE RECORDS SUMMARY | 2024-07-12 08:45 | XMS_ITS | Encounter Summary ---
Author Organization [facility] Address [address] [address] Care Team Providers Care Director Of Physical Security Name Role Phone Enmanuel Gan MD Primary Care Provider Tg Houston MD Unavailable [phone] Guerrero Hunter DPT Unavailable [phone] Guerrero Weiner FARM CREW MEMBER Unavailable [phone] Reason for Referral * Cardiology (Routine) - Closed Specialty Diagnoses / Procedures Referred By Contac t Referred To Contact Diagnoses NICM (nonischemic cardiomyopathy) (CMS/HCC) (HCC) Procedures DEVICE CHECK - REMOTE Ashvin Recio III, MD [address] [address] Phone: tel: fax: [facility] Referral ID Status Reason Start Date Expiration Date Visits Re quested Visits Authorized [id number] Closed 01/26/2023 07/29/2024 1 1 * Cardiology (Routine) - Closed Specialty Diagnoses / Procedures Referred By Contac t Referred To Contact Diagnoses NICM (nonischemic cardiomyopathy) (CMS/HCC) (HCC) Procedures DEVICE CHECK - REMOTE Ashvin Recio III, MD [address] [address] Phone: tel: fax: [facility] Referral ID Status Reason Start Date Expiration Date Visits Re quested Visits Authorized [id number] Closed 01/26/2023 07/29/2024 1 1 * Cardiology (Routine) - Closed Specialty Diagnoses / Procedures Referred By Contac t Referred To Contact Diagnoses NICM (nonischemic cardiomyopathy) (CMS/HCC) (HCC) Procedures DEVICE CHECK - REMOTE Ashvin Recio III, MD [address] [place] [address] Phone: tel: fax: [facility] Referral ID Status Reason Start Date Expiration Date Visits Re quested Visits Authorized [id number] Closed 01/26/2023 07/29/2024 1 1 * Cardiology (Routine) - Closed Specialty Diagnoses / Procedures Referred By Contac t Referred To Contact Diagnoses NICM (nonischemic cardiomyopathy) (CMS/HCC) (HCC) Procedures DEVICE CHECK - REMOTE Ashvin Recio III, MD [address] [place] [address] Phone: tel: fax: [facility] Referral ID Status Reason Start Date Expiration Date Visits Re quested Visits Authorized [id number] Closed 01/26/2023 07/29/2024 1 1 * Cardiology (Routine) - Closed Specialty Diagnoses / Procedures Referred By Contac t Referred To Contact Diagnoses NICM (nonischemic cardiomyopathy) (CMS/HCC) (HCC) Procedures DEVICE CHECK - REMOTE Ashvin Recio III, MD [address] [facility] [address] [address] Phone: tel: fax: [facility] Referral ID Status Reason Start Date Expiration Date Visits Re quested Visits Authorized [id number] Closed 01/26/2023 07/29/2024 1 1 Encounter Details Date Type Department Care Team (Late st Contact Info) Description 01/26/2023 Orders Only [facility] [address], [place] [address] Ashvin Recio III, MD [address], [place] [address] NICM (nonischemic cardiomyopathy) (CMS/HCC) (HCC) [...] attend chur ch or adventism services? 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 female This patient received a Leigh scientific ICD. ??They had a remote transmission [...] 9.7 seconds Episodes last 90 days/Comments: AF [place] <1%, longest duration 3 seconds. ?? No new ventricular events NORMAL DEVICE FUNCTION PROGRAMMED Medications: Anti-coagulant(s): ??Eliquis 5 mg twice a day Anti-arrhythmic(s): ??Amiodarone 200 mg daily, Lopressor 25 mg twice a day PLAN: 1) normal Leigh scientific ICD evaluation. 2) Leigh scientific remote transmission scheduled in 3 months. 3) Programming appropriate for device measurements Yanni David RN Ashvin Recio III, MD CV CARDIAC SERVICES PROCEDURES Final Result * DEVICE CHECK - REMOTE (02/22/2024 11:47 AM CDT) Anatomical Region Laterality Modality Other Narrative 02/29/2024 8:41 PM CDT Table formatting from the original result was not included. ICD CHECK (REMOTE) Patient ID: Macie Briseno is a 78 y.o. female This patient received a Leigh scientific ICD. ??They had a remote transmission [...] 9.7 seconds Episodes last 90 days/Comments: AF [place] 2%, there were numerous episodes of AT/AF [...] Anti-arrhythmic(s): ??Amiodarone 200 mg daily PLAN: 1) Leigh scientific ICD evaluation. 2) Leigh scientific remote transmission scheduled in 3 months. 3) Programming appropriate for device measurements Jacob Latif RN Ashvin Recio III, MD CV CARDIAC SERVICES PROCEDURES Final Result * DEVICE CHECK - REMOTE (11/17/2023 8:50 AM CDT) Anatomical Region Laterality Modality Other Narrative 11/23/2023 1:42 PM CDT Table formatting from the original result was not included. ICD CHECK (REMOTE) Patient ID: Macie Briseno is a 78 y.o. female This patient received a Leigh scientific ICD. ??They had a remote transmission [...] 8.6 seconds Episodes last 90 days/Comments: AF [place] 0% There were no new ventricular events noted on today's remote interrogation. NORMAL DEVICE FUNCTION PROGRAMMED Medications: Anti-coagulant(s): ??None Anti-arrhythmic(s): ??Lopressor 25 mg twice daily PLAN: 1) normal Leigh scientific ICD evaluation. 2) Leigh scientific remote transmission scheduled in 3 months. 3) Programming appropriate for device measurements Latisha Self RN Ashvin Recoi III, MD CV CARDIAC SERVICES PROCEDURES Final Result * DEVICE CHECK - REMOTE (08/17/2023 11:50 AM AUTO LEASING MANAGER) Anatomical Region Laterality Modality Other Narrative 08/20/2023 8:13 AM AUTO LEASING MANAGER Table formatting from the original result was not included. Images from the original result were not included. ICD CHECK (REMOTE) Patient ID: Macie Briseno is a 78 y.o. female This patient received a Leigh scientific ICD. ??They had a remote transmission [...] 8.6 seconds Episodes last 90 days/Comments: AF [place] 1%, longest duration 15.4 hours July 14, [...] 25 mg twice daily PLAN: 1) normal Leigh scientific ICD evaluation. 2) Leigh scientific remote transmission scheduled in 3 months. 3) Programming appropriate for device measurements Latisha Self RN Ashvin Recio III, MD CV CARDIAC SERVICES PROCEDURES Final Result * DEVICE CHECK - REMOTE (05/02/2023 7:56 AM CDT) Anatomical Region Laterality Modality Other Narrative 05/11/2023 4:23 PM CDT Table formatting from the original result was not included. ICD CHECK (REMOTE) Patient ID: Macie Briseno is a 77 y.o. female This patient received a Leigh scientific ICD. ??They had a remote transmission on 05/02/2023. Device implant indications: ??Nonischemic cardiomyopathy ?? Interrogation of the patient's device demonstrates the following: Presenting EGM: ??A sense V sense @ 88 bpm Original Device Settings Right Atrium Right Ventricle Sensitivity (mV) 0.25 mV 0.60 mV Pacing Outputs 2.50 V @ .40 ms 2.5 V @ 0.40 ms ?? Testing Measurements Right Atrium Right Ventricle Sensitivity (mV) 5.9 mV >25.0 mV Impedence (Ohms) 521 ohms 410 ohms High Voltage Impedence ??73 ohms Pace Threshold Not done V @ ??ms Not done V @ ??ms Pacing % 12 % 1 % Battery Status: ??10.5 years to YURIDIA with Charge Time 9.8 seconds Episodes last 90 days/Comments: AF [place] 1%, longest duration 1 hour 28 minutes on March 24, 2023 average ventricular rate noted to be 117 beats per minute 3 stored ventricular events reviewed EGM show short durations of one-to-one tachy versus VT. NORMAL DEVICE FUNCTION PROGRAMMED Medications: Anti-coagulant(s): ??Eliquis 5 mg twice daily Anti-arrhythmic(s): ??Cardizem CD 180 mg PLAN: 1) normal Leigh scientific ICD evaluation. 2) [employer] remote transmission scheduled in 3 months. 3) Programming appropriate for device measurements Latisha Self RN Ashvin Recio III, MD CV CARDIAC SERVICES PROCEDURES Final Result documented in this encounter Visit Diagnoses Diagnosis NICM (nonischemic cardiomyopathy) (CMS/HCC) (HCC)- Primary ICD (implantable cardioverter-defibrillator), dual, in situ- Primary NICM (nonischemic cardiomyopathy) (CMS/HCC) (HCC) ICD (implantable cardioverter-defibrillator), dual, in situ- Primary NICM (nonischemic cardiomyopathy) (CMS/HCC) (HCC) ICD (implantable cardioverter-defibrillator), dual, in situ- Primary NICM (nonischemic cardiomyopathy) (CMS/HCC) (HCC) NICM (nonischemic cardiomyopathy) (CMS/HCC) (HCC) ICD (implantable cardioverter-defibrillator), dual, in situ- Primary NICM (nonischemic cardiomyopathy) (CMS/HCC) (HCC) documented in this encounter Care Teams Director Of Physical Security Relationship Specialty Start Date End Date Enmanuel Gan MD [address] [facility] [place] [id number] PCP - General Internal Medicine 04/26/20 Tg Houston MD [address] [facility] [address] [place] [address] Consulting Physician Cardiology 07/18/20 Guerrero Hunter DPT [address] [facility] [address] [id number] Physical Therapist Physical Therapy 11/08/20 Guerrero Weiner, ELIAN [address] [place] [address] Cisco Unified Communications Engineer Physical Therapy 12/12/20 documented as of this encounter
--- OUTSIDE RECORDS SUMMARY | 2024-07-12 08:45 | XMS_ITS | Encounter Summary ---
Author Organization [facility] Address [address] [facility] [address] [place] [address] Care Team Providers Care Sterile Processing Manager Name Role Phone Enmanuel Gan MD Primary Care Provider [phone] Tg Houston MD Unavailable [phone] Guerrero Hunter DPT Unavailable [phone] Guerrero Weiner ORTHOTICS PROSTHETICS ASSISTANT Unavailable [phone] Reason for Visit * Cardiology (Routine) - Closed Specialty Diagnoses / Procedures Referred By Gigi orosco Referred To Contact Diagnoses Atrial fibrillation, unspecified type (HCC) Procedures DEVICE CHECK - IN OFFICE Clara Thakkar NP [address] [facility] [address], [place] [address] Phone: tel: fax: [facility] Referral ID Status Reason Start Date Expiration Date Visits Re quested Visits Authorized [id number] Closed 03/24/2022 04/23/2023 1 1 Encounter Details Date Type Department Care Team (Latest Contact Info) Description 03/26/2023 2:00 PM CDT Ancillary Procedure Ar[facility]hythmia Center [address] [facility] [address], [place] [id number] ICD (implantable cardioverter-defibrill ator), dual, in situ (Primary Dx); Atrial fibrillation, unspecified type (HCC); AV block, 2nd degree; Apical variant hypertrophic cardiomyopathy (HCC) Social History [...] often do you attend chur ch or scientology services? 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 ICD CHECK (IN OFFICE) Patient ID: Macie Briseno is a 77 y.o. female. This patient received a Corydon scientific ICD. ??They had a routine in office device interrogation on 03/26/23 Device implant indications: ??Nonischemic cardiomyopathy, Mobitz type 2, SVT ?? Interrogation of the patient's device demonstrates the following: Presenting EGM: ??A sense V sense @ 74 bpm Underlying Rhythm: ??Normal sinus rhythm in the 70s Original Device Settings Right Atrium Right Ventricle Sensitivity (mV) 0.25 mV 0.6 mV Pacing Outputs 2.5 V @ 0.4 ms 2.5 V @ 0.4 ms ?? Testing Measurements Right Atrium Right Ventricle Sensitivity (mV) 6.7 mV >25 mV Impedence (Ohms) 590 ohms 415 ohms High Voltage Impedence ??73 ohms Pace Threshold 0.8 V @ 0.4 ms 0.7 V @ 0.4 ms Pacing % 5 % <1 % Battery Status: ??10.5 years to YURIDIA with Charge Time 9.8 seconds Episodes last 90 days/Comments: AF [place] <1%, there were 10 episodes classified as ATR with the longest duration of 1 hour and 28 minutes on 03/24. ??Ventricular rates are variable upwards of 130 bpm. There were 3 stored episodes classified as VT. ??Reviewed EGMs show SVT versus VT with the longest lasting 4 seconds. ??Ventricular rates ranged from the 170s to 190s. NORMAL DEVICE FUNCTION PROGRAMMED MEDICATIONS: Anti-coagulant(s): ??Eliquis 5 mg twice daily Anti-arrhythmic(s): ??Diltiazem CD 180 mg daily PLAN: 1) normal Corydon scientific ICD evaluation. 2) Corydon scientific remote transmission scheduled in 3 months. 3) Programming appropriate for device measurements Yanni David RN Clara Thakkar NP CV CARDIAC SERVICES PROCED URES Final Result documented in this encounter Visit Diagnoses Diagnosis ICD (implantable cardioverter-defibrillator), dual, in situ- Primary Atrial fibrillation, unspecified type (HCC) AV block, 2nd degree Other second degree atrioventricular block Apical variant hypertrophic cardiomyopathy (HCC) documented in this encounter Care Teams Sterile Processing Manager Relationship Specialty Start Date End Date Enmanuel Gan MD [address] INTERNAL MEDICINE [place], [place] [phone] PCP - General Internal Medicine 04/26/20 Tg Houston MD [address] [place] [address] Consulting Physician Cardiology 07/18/20 Guerrero Hunter DPT [address] [facility] [address] [facility] [place] [address] Physical Therapist Physical Therapy 11/08/20 Guerrero Weiner, [place] [employer] [id number] [place] [address] Outpatient Scheduler Physical Therapy 12/12/20 documented as of this encounter
--- OUTSIDE RECORDS SUMMARY | 2024-07-12 08:45 | XMS_ITS | Encounter Summary ---
Author Organization [facility] Address [address] [address] Care Team Providers Care Natural Science Manager Name Role Phone Enmanuel Gan MD Primary Care Provider [phone] Tg Houston MD Unavailable [phone] Geurrero Hunter DPT Unavailable [phone] Guerrero Weiner PLANT SUPERVISOR Unavailable [phone] Encounter Details Date Type Department Care Team (Late st Contact Info) Description 12/19/2022 Telephone [facility] Cardiology [address] [address] Jeremy Hobbs MD [address] [place] [address] Social History Tobacco Use Types Packs/Day Years [...] week 07/30/2020 How often do you attend [facility] or amish services? 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 She said that anyone that is elderly and with heart conditions they are going to ask for a split night instead of a home study. Started PA for a split. Home study is NPR. Keri ----- Message ----- From: Carolann Dill RN Sent: 12/10/2022 2:32 PM CDT To: Cyndie Seymour; Claudia Dee MBA Subject: Home Sleep Study PROCEDURE/TEST ORDERED: Portable/Home Sleep Study LOCATION: DATE OF SERVICE: TBD INSURANCE: [employer] [facility] Medicare/[employer] [facility] [place] [facility] DIAGNOSIS: hypersomnolence, paroxysmal afib ORDERING PROVIDER: BHARTI ADDITIONAL DETAILS: documented in this encounter Plan of Treatment Not on file documented as of this encounter Visit Diagnoses Not on filedocumented in this encounter Care Teams Natural Science Manager Relationship Specialty Start Date End Date Enmanuel Gan MD [address] [facility] [address] [place] [address] PCP - General Internal Medicine 04/26/20 Tg Houston MD [address] [facility] [address] [place] [address] Consulting Physician Cardiology 07/18/20 Guerrero Hunter DPT [address] [facility] [address] [facility] [place] [address] Physical Therapist Physical Therapy 11/08/20 Guerrero Weiner PTA [id number] [place] [address] Dry Cell And Battery Assembler Physical Therapy 12/12/20 documented as of this encounter
--- OUTSIDE RECORDS SUMMARY | 2024-07-12 08:45 | XMS_ITS | Encounter Summary ---
Author Organization [facility] Address [address] [facility] [address] [place] [address] Care Team Providers Care Senior Publications Specialist Name Role Phone Enmanuel Gan MD Primary Care Provider [phone] Tg Houston MD Unavailable [phone] Guerrero Hunter DPT Unavailable [phone] Guerrero Weiner CIGAR WRAPPER Unavailable [phone] Reason for Referral * Cardiology (Routine) - Closed Specialty Diagnoses / Procedures Referred By Gigi t Referred To Contact Diagnoses NICM (nonischemic cardiomyopathy) (CMS/HCC) (HCC) Procedures DEVICE CHECK - IN OFFICE Clara Thakkar NP [address] [facility] [address] [place] [address] Phone: tel: fax: Referral ID Status Reason Start Date Expiration Date Visits Re quested Visits Authorized [id number] Closed 03/20/2023 04/18/2024 1 1 Reason for Visit * Consultation (Routine) - Closed Specialty Diagnoses / Procedures Referred By Contac t Referred To Contact Cardiology Diagnoses Paroxysmal atrial fibrillation (CMS/HCC) (HCC) Enmanuel Gan MD [address] [place] [address] Phone: tel: fax: [facility] [address] [facility] [address], [place] [address] Phone: tel: fax: Referral ID Status Reason Start Date Expiration Date V isits Requested Visits Authorized [id number] Closed Specialty Services Required 03/23/2023 04/21/2024 1 1 Encounter Details Date Type Department Care Team (Late st Contact Info) Description 03/26/2023 2:00 PM CDT Office Visit Arrhythmia Center [address] [facility] [address], [place] [address] Clara Thakkar, LU [address] [facility] [address] [address] Paroxysmal atrial fibrillation (CMS/HCC) (HCC); NICM (nonischemic cardiomyopathy) (CMS/HCC) (HCC) Social History [...] do you attend [facility] or alevism services? 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 [facility] Arr[facility]ia Center [address] [place] [address], [address] [place], [place] [address] Office Visit Note Patient Name: Macie Briseno Date of : 1945 Primary Physician: Enmanuel Gan MD Chief Complaint Av block History of hypertrophic cardiomyopathy History of dual-chamber ICD placement HPI Macie Briseno is a 77 y.o. female seen in follow-up today for [...] ICD by Dr. Recio on 05/28/2021. She reports chronic shortness of breath. Less than 1% of atrial arrhythmia burden on her device interrogation today. No recent device therapies. No episodes of ventricular arrhythmia. EKG on my review today demonstrates sinus rhythm (65) with normal QRS duration and QT interval. Past Medical History Past Medical History: Diagnosis Date Allergic rhinitis Anxiety unknown maybe 1989 Arthritis 2018 Atrial fibrillation (CMS/HCC) (HCC) Auditory vertigo Meniere's disease Coronary artery disease Depression 1989 Heart disease Afib 2019 HL (hearing loss) HLD (hyperlipidemia) Meniere's disease Microvascular angina (CMS/HCC) (HCC) Mixed conductive and sensorineural hearing loss [...] Bilateral 2014 VESTIBULAR NERVE SECTION Left Medications Current Outpatient Medications Medication Instructions ALPRAZolam (XANAX) 0.25 mg, oral, Nightly PRN atorvastatin (LIPITOR) 20 mg, oral, Nightly azelastine (ASTELIN) 137 mcg (0.1 %) nasal spray 1 spray, 2 times daily calcium acetate(phosphat bind) (PHOSLO) 1,334 mg, oral, Every morning dilTIAZem XR (CARDIZEM CD,DILACOR XR) 180 mg, oral, Daily doxepin (SINEquan) 25 mg capsule TAKE 1 TO 2 CAPSULES BY MOUTH EVERY DAY AT BEDTIME DULoxetine DR (CYMBALTA) 60 mg capsule oral, Daily DULoxetine DR (CYMBALTA) 90 mg, oral, Every morning Eliquis 5 mg, oral, 2 times daily fexofenadine-pseudoephedrine (THELMA-D) 60-120 mg per 12 hr tablet 1 tablet, oral, 2 times daily PRN fluticasone (FLONASE) 50 mcg/actuation nasal spray inhale 1 spray (50MCG) by intranasal route everyday in each nostril furosemide (LASIX) 40 mg tablet TAKE 1 TABLET BY MOUTH EVERY MORNING. DISCONTINUE THE FUROSEMIDE 20. THANK YOU furosemide (LASIX) 20 mg, oral, Daily HYDROcodone-acetaminophen (NORCO) 5-325 mg per tablet oral, Every 6 hours PRN magnesium citrate 100 mg tablet 1 tablet, Every morning potassium chloride ER 20 mEq CR tablet 40 mEq, oral, Every morning sucralfate (CARAFATE) 2 g, oral, 2 times daily PRN Allergies Allergies Allergen Reactions Adhesive Rash and [...] Hx Anesthesia problems Neg Hx Social History Social History Tobacco [...] Frequency of Binge Drinking: Not on file Objective Physical Exam Vitals reviewed. Constitutional: Appearance: [...] interrogations as needed. Shortness of breath, chronic No changes to her medications were made at this office visit She can follow up in 1 year for an office visit, 12 lead EKG, and device interrogation Diagnoses and all orders for this visit: Paroxysmal atrial fibrillation (CMS/HCC) (HCC) - ECG 12 lead - Ambulatory referral to Cardiology NICM (nonischemic cardiomyopathy) (CMS/HCC) (HCC) - DEVICE CHECK - IN OFFICE Clara Thakkar NP [facility] Arr[facility]ia Center documented in this encounter Plan of Treatment Scheduled Orders Name Type Priority Associated Diagnoses Orde r Schedule DEVICE CHECK - IN OFFICE Cardiac Services Routine NICM (nonischemic cardiomyopathy) (CMS/HCC) (HCC) Ordered: 03/20/2023 documented as of this encounter Procedures Procedure Name Priority Date/Time Associated Diagnosis Comments ECG 12-LEAD Routine 04/02/2023 Paroxysmal atrial fibrillation (CMS/HCC) (HCC) documented in this encounter Results * ECG 12 lead (04/02/2023) Clara Thakkar NP ECG ORDERABLES Final Resu lt documented in this encounter Visit Diagnoses Diagnosis Paroxysmal atrial fibrillation (CMS/HCC) (HCC) Atrial fibrillation NICM (nonischemic cardiomyopathy) (CMS/HCC) (HCC) documented in this encounter Orders Outpatient Referral Count Last Ordered Date Fir st Ordered Date AMB REFERRAL TO CARDIOLOGY 1 03/26/2023 documented in this encounter Care Teams Senior Publications Specialist Relationship Specialty Start Date End Date Enmanuel Gan MD [address] [facility] [address] [place] [address] PCP - General Internal Medicine 04/26/20 Tg Houston MD [address] [place] [address] Consulting Physician Cardiology 07/18/20 Guerrero Hunter DPT [address] [facility] [address] [facility] [place] [address] Physical Therapist Physical Therapy 11/08/20 Guerrero Weiner, CIGAR WRAPPER [address] [facility] [address] [place], [place] [id number] Grief Counselor Physical Therapy 12/12/20 documented as of this encounter
--- OUTSIDE RECORDS SUMMARY | 2024-07-12 08:45 | XMS_ITS | Encounter Summary ---
Author Organization [facility] Address [address] [place] [address] Phone Care Team Providers Care Appeals Reviewer Veteran Name Role Phone Enmanuel Gan MD Primary Care Provider [phone] Tg Houston MD Unavailable [phone] Guerrero Hunter DPT Unavailable [phone] Guerrero Weiner WELLNESS SPECIALIST Unavailable [phone] Reason for Visit * Reason Onset Date Comments Medical Question/Miscellaneous 04/03/2023 Encounter Details Date Type Department Care Team (Late st Contact Info) Description 04/03/2023 Telephone [facility] Orthopaedic Surgery [address] [facility] Advanced Medicine 6th [place] [address] [place] [address] Jeremy Michelle MD [address] [facility] [place] [address] Medical Question/Miscellaneous Social History Tobacco Use Types [...] attend chur ch or mormonism services? 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 Based on last visit about 6 weeks ago all was well and imaging looked good. Patient is going to think about doing more PT and discuss with PCP about checking bone health and labs for other reasons for getting easily fatigued. She will call and update office. documented in this encounter Plan of Treatment Not on file documented as of this encounter Visit Diagnoses Not on filedocumented in this encounter Care Teams Appeals Reviewer Veteran Relationship Specialty Start Date End Date Enmanuel Gan MD [address] INTERNAL MEDICINE [place], [place] [id number] PCP - General Internal Medicine 04/26/20 Tg Houston MD [address] [facility] [address] [place] [address] Consulting Physician Cardiology 07/18/20 Guerrero Hunter DPT [address] [facility] [address] [address] Physical Therapist Physical Therapy 11/08/20 Guerrero Weiner, WELLNESS SPECIALIST [address] [place] [address] Psychodramatist Physical Therapy 12/12/20 documented as of this encounter
--- OUTSIDE RECORDS SUMMARY | 2024-07-12 08:45 | XMS_ITS | Encounter Summary ---
Author Organization [facility] Address [address] [place] [address] Care Team Providers Care Division Commander Name Role Phone Enmanuel Gan MD Primary Care Provider [phone] Tg Houston MD Unavailable [phone] Guerrero Hunter DPT Unavailable [phone] Guerrero Weiner HOUSE RN Unavailable [phone] Encounter Details Date Type Department Care Team (Latest Contact Info) Description 03/25/2023 10:31 PM CDT - 03/25/2023 11:59 PM CDT Hospital Encounter [facility] Imaging [address] [place] [address] Discharge Disposition: Discharge to home or self [...] How often do you attend chur or christianity services? 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 ??There will be no report generated by a [facility] Radiologist. Narrative [facility]_P[facility] - 03/25/2023 10:31 PM CDT EXAMINATION: ??Images For Reference Purposes Only Nate MCLEAN IMG XR PROCEDURES Final Result [facility] documented in this encounter Visit Diagnoses Not on filedocumented in this encounter Care Teams Division Commander Relationship Specialty Start Date End Date Enmanuel Gan MD [address] [facility] [address] [place] [id number] PCP - General Internal Medicine 04/26/20 Tg Houston MD [address] [facility] [address] [place] [address] Consulting Physician Cardiology 07/18/20 Guerrero Hunter DPT [address] [facility] [address] [facility] [place] [address] Physical Therapist Physical Therapy 11/08/20 Guerrero Weiner, [facility] [address] [place] [address] Arm Maker Physical Therapy 12/12/20 documented as of this encounter
--- OUTSIDE RECORDS SUMMARY | 2024-07-12 08:45 | XMS_ITS | Encounter Summary ---
Author Organization [facility] Healthcare Address [address] [place] [address] Care Team Providers Care Hydraulic Tester Name Role Phone Enmanuel Gan MD Primary Care Provider [phone] Tg Houston MD Unavailable [phone] Guerrero Hunter DPT Unavailable [phone] Guerrero Weiner CLIENT TECHNICAL SPECIALIST Unavailable [phone] Reason for Referral * Diagnostic Imaging (Routine) - Closed Specialty Diagnoses / Procedures Referred By Contac t Referred To Contact Diagnoses Fusion of spine of lumbar region Procedures XR Scoliosis 6 or More Views Jeremy Michelle MD [address] [employer] [employer] [place] [address] Phone: tel: fax: [facility] Referral ID Status Reason Start Date Expiration Date Visits Re quested Visits Authorized [id number] Closed 02/06/2023 03/07/2024 1 1 Reason for Visit * Diagnostic Imaging (Routine) - Closed Specialty Diagnoses / Procedures Referred By Contac t Referred To Contact Diagnoses Fusion of spine of lumbar region Procedures XR Scoliosis 6 or More Views Jeremy Michelle MD [address] [employer] [place] [address] Phone: tel: fax: [facility] Referral ID Status Reason Start Date Expiration Date Visits Re quested Visits Authorized [id number] Closed 02/06/2023 03/07/2024 1 1 Encounter Details Date Type Department Care Team (Latest Contact Info) Description 02/10/2023 8:00 AM CDT - 02/10/2023 11:59 PM CDT Hospital Encounter [facility] [address] [place] [address] Jeremy Michelle MD [address] [facility] 6A/6B/12[place] [address] Fusion of spine of lumbar region Discharge [...] attend chur ch or rastafarian services? 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 Gender Identity Not on file Sexual Orientation Lesbian 05/24/2019 9: 06 AM CDT documented as of this encounter Medications at Time of Discharge atorvastatin (LIPITOR) 20 mg tabletIndications:h yperlipidemia Take 1 tablet (20 mg total) by mouth nightly 07/29/2018 ALPRAZolam (XANAX) 0.25 mg tablet Take 1 tablet (0.25 mg total) by mouth nightly as needed for anxiety 90 tablet 07/01/2022 3 azelastine (ASTELIN) 137 mcg (0.1 %) nasal sprayIndications:Se asonal Allergic Rhinitis Administer 1 spray into each nostril 2 (two) times a day as needed for rhinitis or allergies 12/30/2021 4 calcium acetate,phosphat bind, (PHOSLO) 667 mg capsuleIndications: supplement Take 2 capsules (1,334 mg total) by mouth every morning 4 cefuroxime (CEFTIN) 500 mg tablet Take 1 tablet (500 mg total) by mouth every 12 (twelve) hours 10/30/2022 3 dilTIAZem XR (CARDIZEM CD,DILACOR XR) 180 mg 24 hr capsule Take 1 capsule (180 mg total) by mouth daily 90 capsule 3 09/25/2022 3 doxepin (SINEquan) 25 mg capsuleIndications: sleep Take [...] by mouth daily 30 tablet 11 07/01/2022 4 HYDROcodone-acetami nophen (NORCO) 5-325 mg per tabletIndications:P ain Take 1 tablet by mouth every 6 (six) hours as needed for pain 04/03/2022 4 magnesium citrate 100 mg tabletIndications:h ypomagnesemia Take 1 tablet by mouth every morning 4 mirtazapine (REMERON) 15 mg tablet Take 1 tablet (15 mg total) by mouth nightly at bedtime 12/17/2022 3 potassium chloride ER 20 mEq CR tabletIndications:s upplement Take 2 tablets (40 mEq total) by mouth every morning 06/29/2020 4 senna-docusate (PERICOLACE) 8.6-50 mgIndications:const ipation Take 2 tablets by mouth 2 (two) times a day for 14 days 56 tablet 07/29/2020 4 sucralfate (CARAFATE) 1 gram tablet Take 2 tablets (2 g total) by mouth 2 (two) times a day as needed 4 traZODone (DESYREL) 50 mg tablet 10/28/2021 3 documented as of this encounter Discharge Disposition Disposition Code Departure Means Destination Discharge to home or self care documented in this encounter Plan of Treatment Not on file documented as of this encounter Procedures Procedure Name Priority Date/Time Associated Diagnosis Comments XR SCOLIOSIS 6 OR MORE VIEWS Schedule Routine, Read Routine (OP Routine) 02/10/2023 8:21 AM CDT Fusion of spine of lumbar region documented in this encounter Results * XR Scoliosis 6 or More Views (02/10/2023 8:21 AM CDT) Anatomical Region Laterality Modality Spine N/A Computed Radiogr aphy 02/10/2023 8:26 AM CDT Impressions 02/10/2023 8:26 AM CDT 1. ??Unchanged posterior decompression and instrumented posterior spinal fusion L1-L4 with combined anterior discectomy and interbody fusion L2-S1 with progressive transitional thoracolumbar degenerative disc disease and neutral truncal balance Electronically signed by: Abelardo Rosales MD, PHD Narrative 02/10/2023 8:26 AM CDT EXAMINATION: Scoliosis 6+ views HISTORY: ??Cervical lumbar spondylosis FINDINGS: 10 radiographs including standing digital frontal and lateral radiographs of the entire spine and both lower extremities are compared to prior radiographs from 07/22/2022. ??There is no scoliosis with neutral truncal balance and no pelvic obliquity. There is unchanged posterior decompression with L1-L4 instrumented posterior spinal fusion with combined anterior discectomy and interbody fusion from L2 to S1. ??Osteolysis of the L1 pedicle screws appear unchanged. ??There is progressive T10-L1 moderate degenerative disc disease. ??The vertebral body heights are normal without compression fracture. ??Pacer generator and leads are noted. Bilateral total hip arthroplasties are present. ??Surgical clips are noted the right upper quadrant. Procedure Note Abelardo Rosales MD PhD - 02/10/2023 EXAMINATION: Scoliosis 6+ views HISTORY: Cervical lumbar spondylosis FINDINGS: 10 radiographs including standing digital frontal and lateral radiographs of the entire spine and both lower extremities are compared to prior radiographs from 07/22/2022. There is no scoliosis with neutral truncal balance and no pelvic obliquity. There is unchanged posterior decompression with L1-L4 instrumented posterior spinal fusion with combined anterior discectomy and interbody fusion from L2 to S1. Osteolysis of the L1 pedicle screws appear unchanged. There is progressive T10-L1 moderate degenerative disc disease. The vertebral body heights are normal without compression fracture. Pacer generator and leads are noted. Bilateral total hip arthroplasties are present. Surgical clips are noted the right upper quadrant. IMPRESSION: 1. Unchanged posterior decompression and instrumented posterior spinal fusion L1-L4 with combined anterior discectomy and interbody fusion L2-S1 with progressive transitional thoracolumbar degenerative disc disease and neutral truncal balance Electronically signed by: Abelardo Rosales MD, PHD us Jeremy Michelle MD IMG XR PROCEDURES Fi nal Result documented in this encounter Visit Diagnoses Diagnosis Fusion of spine of lumbar region documented in this encounter Care Teams Hydraulic Tester Relationship Specialty Start Date End Date Enmanuel Gan MD [address] INTERNAL MEDICINE [place], [place] [id number] PCP - General Internal Medicine 04/26/20 Tg Houston MD [address] [facility] [address] [place] [address] Consulting Physician Cardiology 07/18/20 Guerrero Hunter DPT [address] [facility] [address] [place], [place] [id number] Physical Therapist Physical Therapy 11/08/20 Guerrero Weiner, CLIENT TECHNICAL SPECIALIST [address] [facility] [address] [place] [address] Hand Violin Maker Physical Therapy 12/12/20 documented as of this encounter
--- OUTSIDE RECORDS SUMMARY | 2024-07-12 08:45 | XMS_ITS | Encounter Summary ---
Author Organization [facility] Address [address] [facility] [address] [place] [address] Care Team Providers Care Invisible Braces Orthodontist Name Role Phone Enmanuel Gan MD Primary Care Provider [phone] Tg Houston MD Unavailable [phone] Guerrero Hunter DPT Unavailable [phone] Guerrero Weiner GENERAL LEDGER BOOKKEEPER Unavailable [phone] Reason for Visit * Reason Comments Follow-up 2 mo Encounter Details Date Type Department Care Team (Late st Contact Info) Description 02/24/2023 9:30 AM CDT Office Visit [facility] Cardiology [address] [address] Yanni Dang NP [address] [facility] [address] [facility] [address] [place] [address] SNIDER (dyspnea on exertion) (Primary Dx); Paroxysmal atrial fibrillation (CMS/HCC) (HCC); Chronic anticoagulation; Microvascular angina (CMS/HCC) (HCC); Apical variant hypertrophic cardiomyopathy (HCC) Social History [...] on file 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 Gender Identity Not on file Sexual Orientation Lesbian 05/24/2019 9: 06 AM CDT documented as of this encounter Last Filed Vital Signs Vital Sign Reading Time Taken Comments Blood Pressure 104/62 02/24/2023 9:37 AM CDT Pulse 74 02/24/2023 9:37 AM CDT Temperature - - Respiratory Rate - - Oxygen Saturation 97% 02/24/2023 9:37 AM CDT Inhaled Oxygen Concentration - - Weight 78.5 kg (173 lb) 02/24/2023 9:37 AM CDT Height 162.6 cm (5' 4 ) 02/24/2023 9:37 AM CDT Body Mass Index 29.7 02/24/2023 9:37 AM CDT documented in this encounter Progress Notes * Yanni Dang NP - 02/24/2023 9:30 AM CDT Images from the original note were not included. [facility] Cardiology [address] [place] [address] Date of Visit: 02/24/2023 Patient ID: Macie Briseno [id number] Chief Complaint Patient presents with Follow-up 2 mo Macie Briseno is a 77 y.o. female who is an established patient of Dr. Hobbs with microvascularangina, apical variant hypertrophic cardiomyopathy and atrial fibrillation returning to the office for short interval follow up after having a sleep study. History of Present Illness: Macie Briseno is a 77 y.o. 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 Formally seen at [facility] and is here to [...] March 2021 she was hospitalized at [facility] again for shortness of breath, weakness, [...] paroxysmal nocturnal dyspnea orthopnea edema. Follow-up with CHAIR LIFT OPERATOR 02/24/2023: Since her last office visit she [...] shortness of breath. She deniesany bleeding problems. Records that I personally reviewed on the day of this visit include: (the interpretation is outlined in the HPI above) 12/23/[address] Hobbs, 01/07/2023 sleep study report. I have also reviewed: allergies, current medications, [...] problems Neg Hx Review of Systems Constitutional: Negative for malaise/fatigue, weight gain and weight loss. Cardiovascular: Negative for chest pain, claudication, dyspnea on exertion, leg swelling, near-syncope, orthopnea, palpitations, paroxysmal nocturnal dyspnea and syncope. Respiratory: Negative for cough, shortness of breath and sleep disturbances due to breathing. Hematologic/Lymphatic: Negative for bleeding problem. Does not bruise/bleed easily. Musculoskeletal: Positive for back pain and joint pain. Neurological: Negative for dizziness and light-headedness. Vital Signs: BP 104/62 (BP Location: Left arm, Patient Position: Sitting) Pulse 74 Ht 162.6 cm (5' 4 ) Wt 78.5 kg (173 lb) SpO2 97% BMI 29.70 kg/m?? Physical Exam Constitutional: General: She is [...] respiratory distress. Breath sounds: Normal breath sounds. Skin: General: Skin is warm and dry. [...] (two) times a day, Disp: , Rfl: calcium acetate,phosphat bind, (PHOSLO) 667 mg capsule, Take 2 capsules (1,334 mg total) by mouth every morning, Disp: , Rfl: dilTIAZem XR (CARDIZEM CD,DILACOR XR) 180 mg 24 hr capsule, Take 1 capsule (180 mg total) by mouth daily, Disp: 90 capsule, Rfl: 3 doxepin (SINEquan) 25 mg capsule, TAKE 1 TO 2 CAPSULES BY MOUTH EVERY DAY AT BEDTIME, Disp: , Rfl: DULoxetine DR (CYMBALTA) 30 mg capsule, Take 3 capsules (90 mg total) by mouth every morning, Disp:, Rfl: Eliquis 5 mg tablet, Take 1 [...] a day as needed, Disp: , Rfl: cefuroxime (CEFTIN) 500 mg tablet, Take 1 tablet (500 mg total) by mouth every 12 (twelve) hours (Patient not taking: Reported on 02/24/2023), Disp: , Rfl: magnesium citrate 100 mg tablet, Take 1 tablet by mouth every morning (Patient not taking: Reportedon 02/24/2023), Disp: , Rfl: mirtazapine (REMERON) 15 mg tablet, Take 1 tablet (15 mg total) by mouth nightly at bedtime (Patient not taking: Reported on 12/23/2022), Disp: , Rfl: traZODone (DESYREL) 50 mg tablet, , Disp: , Rfl: Lab Results Component Value Date POTASSIUM 4.1 [...] Diagnoses and all orders for this visit: SNIDER (dyspnea on exertion) (Primary) Paroxysmal atrial fibrillation (CMS/HCC) (HCC) Chronic anticoagulation Microvascular angina (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 Her dyspnea on exertion has nearly resolved. Therefore I do not feel strongly that she needs to reschedule the PFTs. However if her dyspnea on exertion returns, I recommend we get a rescheduled. She agreed. She has a history of PAF. Rhythm sounds regular on exam today. She is tolerating Eliquis. Continue diltiazem and Eliquis. Counseling performed at this visit included bleeding risks associated with systemic oral anticoagulation and when to seek emergency care,. Even prior to atrial fibrillation she was on diltiazem for microvascular angina. Currently not having any problems with angina. Apical variant hypertrophic cardiomyopathy seen in 2020 but no LVH was seen hour at least describedin most recent echo in 2021. Return to the office to see Dr. Hobbs in 6 months. Call us sooner with questions or concerns. 02/24/2023 MOLLY Landrum- Nurse Practitioner with [facility] Cardiology This note is dictated and transcribed using [employer]. Project Management Instructor variancesmay occur. Despite proofreading, typographical errors may occur. documented in this encounter Plan of Treatment Not on file documented as of this encounter Visit Diagnoses Diagnosis SNIDER (dyspnea on exertion)- Primary Other dyspnea and respiratory abnormality Paroxysmal atrial fibrillation (CMS/HCC) (HCC) Atrial fibrillation Chronic anticoagulation Encounter for long-term (current) use of anticoagulants Microvascular angina (HCC) Apical variant hypertrophic cardiomyopathy (HCC) documented in this encounter Care Teams Invisible Braces Orthodontist Relationship Specialty Start Date End Date Enmanuel Gan MD [address] [facility] [address] [place] [address] PCP - General Internal Medicine 04/26/20 Tg Houston MD [address] [facility] [address] [place] [address] Consulting Physician Cardiology 07/18/20 Guerrero Hunter DPT [address] [facility] [address] [facility] [place] [address] Physical Therapist Physical Therapy 11/08/20 Guerrero Weiner, GENERAL LEDGER BOOKKEEPER [address] [place] [address] Rectifying Attendant Physical Therapy 12/12/20 documented as of this encounter
--- OUTSIDE RECORDS SUMMARY | 2024-07-12 08:45 | XMS_ITS | Encounter Summary ---
Author Organization [facility] Address [address] [place] [address] Phone Care Team Providers Care Seasonal Recruiter Name Role Phone Enmanuel Gan MD Primary Care Provider [phone] Tg Houston MD Unavailable [phone] Guerrero Hunter DPT Unavailable [phone] Guerrero Weiner EMT BASIC Unavailable [phone] Encounter Details Date Type Department Care Team (Late st Contact Info) Description 04/09/2023 Orders Only [facility] Orthopaedic Surgery [address] [facility] Advanced Medicine 6th [place] [address] [place] [id number] Jeremy Michelle MD [address] [facility] [place] [address] Fusion of spine of lumbar region (Primary [...] on file 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 Gender Identity Not on file Sexual Orientation Lesbian 05/24/2019 9: 06 AM CDT documented as of this encounter Plan of Treatment Not on file documented as of this encounter Visit Diagnoses Diagnosis Fusion of spine of lumbar region- Primary documented in this encounter Care Teams Seasonal Recruiter Relationship Specialty Start Date End Date Enmanuel Gan MD [address] [facility] [address] [place] [address] PCP - General Internal Medicine 04/26/20 Tg Houston MD [address] [facility] [address] [place] [address] Consulting Physician Cardiology 07/18/20 Guerrero Hunter DPT [address] [facility] [address] [place], [place] [id number] Physical Therapist Physical Therapy 11/08/20 Guerrero Weiner, [facility] [address] [facility] [address] [place] [address] Transportation Lead Physical Therapy 12/12/20 documented as of this encounter
--- OUTSIDE RECORDS SUMMARY | 2024-07-12 08:45 | XMS_ITS | Encounter Summary ---
Author Organization [facility] Address [address] [place] [address] Phone Care Team Providers Care Board Certified Family Physician Name Role Phone Enmanuel Gan MD Primary Care Provider Tg [place] MD Unavailable [phone] Guerrero Hunter DPT Unavailable [phone] Guerrero Weiner ESTERS AND EMULSIFIERS SUPERVISOR Unavailable [phone] Reason for Visit * Reason Comments Pain * Consultation (Routine) - Closed Specialty Diagnoses / Procedures Referred By Gigi t Referred To Contact Orthopedic Surgery Diagnoses Right hip pain [facility] Orthopaedic Surgery [address] [place] [phone] Phone: tel: fax: [facility] (All Locations) Referral ID Status Reason Start Date Expiration Date V isits Requested Visits Authorized [id number] Closed Specialty Services Required 03/10/2023 04/08/2024 3 3 Encounter Details Date Type Department Care Team (Late st Contact Info) Description 03/25/2023 1:30 PM CDT Office Visit [facility] Orthopaedic Surgery [address] [place] [address] 12th [place] [address] [place] [address] Nate Velasquez PA [facility] [address] [place] [address] Chronic pain of right knee (Primary Dx); Primary osteoarthritis of right knee Social History Tobacco Use Types Packs/Day Years [...] on file 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 NEW to provider PATIENT VISIT Patient: Macie Briseno is a 77 y.o. female. Visit Date: 03/25/2023 Chief Complaint Patient presents with Right Knee - Pain History of Present Illness: Patient presents to clinic today for right knee pain, onset for years with no reported injuries or accidents. The pain has been intermittent and worsened in January. She was on vacation in [place] and reportedly did quite a bit of walking at multiple airports which exacerbated her pain. She returned home visited a different orthopedic in [facility], received a corticosteroid injection March 10, 2023 which provided her with good relief. The pain has since improved and she is much better today. She would take Tylenol and Voltaren topical as needed which provides additional relief. When she experiences pain it is located in the anterior aspect of her knee. No locking/catching or gross instability. Denies any surgical history to her right knee. She presents for further evaluation today. Past Medical History: Past Medical History: Diagnosis Date Allergic rhinitis Anxiety unknown maybe 1989 Arthritis 2019 Atrial fibrillation (CMS/HCC) (HCC) Auditory vertigo Meniere's disease Coronary artery disease Depression 1989 Heart disease Afib 2019 HL (hearing loss) HLD (hyperlipidemia) Meniere's disease Microvascular angina (CMS/HCC) (HCC) Mixed conductive and sensorineural hearing loss 1989 Osteoporosis 2013 Tinnitus Current Medications: Current Outpatient Medications Medication Sig Dispense Refill DULoxetine DR (CYMBALTA) 60 mg capsule Take by mouth daily furosemide (LASIX) 40 mg tablet TAKE 1 TABLET BY MOUTH EVERY MORNING. DISCONTINUE THE FUROSEMIDE 20. THANK YOU ALPRAZolam (XANAX) 0.25 mg tablet Take 1 tablet (0.25 mg total) by mouth nightly as needed for anxiety 90 tablet 0 atorvastatin (LIPITOR) 20 mg tablet Take 1 tablet (20 mg total) by mouth nightly azelastine (ASTELIN) 137 mcg (0.1 %) nasal spray 1 spray 2 (two) times a day calcium acetate,phosphat bind, (PHOSLO) 667 mg capsule Take 2 capsules (1,334 mg total) by mouth every morning dilTIAZem XR (CARDIZEM CD,DILACOR XR) 180 mg 24 hr capsule Take 1 capsule (180 mg total) by mouth daily 90 capsule 3 doxepin (SINEquan) 25 mg capsule TAKE 1 TO 2 CAPSULES BY MOUTH EVERY DAY AT BEDTIME DULoxetine DR (CYMBALTA) 30 mg capsule Take 3 capsules (90 mg total) by mouth every morning Eliquis [...] nightly) 0 furosemide (LASIX) 20 mg tablet Take 1 tablet (20 mg total) by mouth daily 30 tablet 11 HYDROcodone-acetaminophen (NORCO) 5-325 mg per tablet Take by mouth every 6 (six) hours as needed magnesium citrate 100 mg tablet Take 1 tablet by mouth every morning (Patient not taking: Reported on 02/24/2023) potassium chloride ER 20 mEq CR tablet Take 2 tablets (40 mEq total) by mouth every morning sucralfate (CARAFATE) 1 gram tablet Take 2 tablets (2 g total) by mouth 2 (two) times a day as needed No current facility-administered medications for this visit. Family History: Family History Problem Relation Age of Onset [...] Neg Hx Anesthesia problems Neg Hx Social History: Tobacco Use: Low Risk (02/24/2023) Patient History Smoking Tobacco Use: Never Smokeless Tobacco Use: Never Passive Exposure: Not on file Physical Exam: Vitals: 03/25/23 1403 Weight: 78.7 kg (173 lb 6.4 oz) Height: 166.4 cm (5' 5.5 ) Right knee Inspection Erythema: absent Swelling: absent Surgical scar/wound: absent. Skin temperature: normal Alignment: valgus Gait: normal Palpation Tenderness: present. The tenderness is located in the lateral joint line (mild). Crepitus: positive Range of motion The patient does not have pain with range of motion of the right knee. Active extension: 0 Active flexion: 111-115 Flexion contracture: no. Extensor lag: no. Stability The patient has normal AP and ML stability of the right knee. Anterior drawer: negative Strength Knee extension: 4/5 Knee flexion: 4/5 Hip abductor: 4/5 Neurovascular The patient has normal vascular on the right side of their body. Dorsalis pedis pulse: 2+ Posterior tibial pulse: 2+ The patient has normal sensation on the right side of their body. Comments: Negative [facility] Findings: No new images today. Reviewed and interpreted x-rays of the right knee completed January 2023 uploadedin Daphne: No fractures or dislocations. Noted moderate to severe lateral compartment degenerative changes. Bones appear demineralized. Assessment and Plan: Diagnoses and all orders for this visit: Chronic pain of right knee (Primary) - XR Knee Right 4 or More Views; Future Primary osteoarthritis of right knee - Ambulatory referral to Orthopedic Surgery Discussion had with patient about diagnosis, prognosis, treatment plan/options (surgical and non-surgical). Patient with right knee osteoarthritis, treating conservatively. She recently had corticosteroid injection in the right knee March 10, 2023 in [facility]. The injection reportedly has been helpful and her pain is relatively mild. She will follow up in 3 months for re-evaluation and repeat corticosteroid injection if indicated. Continue Tylenol and topicals as needed, RICE and activity modification PRN Reviewed imaging results with patient. All questions answered and patient voiced understanding Nate Velasquez PA-C Physician Roving Sizer Joint Reconstructive Service [facility] Orthopedics In collaboration with Dr. Lauren Velasquez PA-C dictating using Inc[employer]ient Direct Software. Dining Service Inspector variances may occur. documented in this encounter Plan of Treatment Not on file documented as of this encounter Visit Diagnoses Diagnosis Chronic pain of right knee- Primary Primary osteoarthritis of right knee documented in this encounter Discontinued Medications Medication Sig Discontinue Reason Start Date End Da te traZODone (DESYREL) 50 mg tablet Therapy completed 10/28/2021 03/24/2023 cefuroxime (CEFTIN) 500 mg tablet Take 1 tablet (500 mg total) by mouth every 12 (twelve) hours Therapy completed 10/30/2022 03/24/2023 mirtazapine (REMERON) 15 mg tablet Take 1 tablet (15 mg total) by mouth nightly at bedtime Therapy completed 12/17/2022 03/24/2023 documented as of this encounter Historical Medications * This list may reflect changes made after this encounter. DULoxetine DR (CYMBALTA) 60 mg capsuleIndicatio ns:Anxiety with Depression Take 1 capsule (60 mg total) by mouth every morning 03/11/2023 furosemide (LASIX) 40 mg tablet TAKE 1 TABLET BY MOUTH EVERY MORNING. DISCONTINUE THE FUROSEMIDE 20. THANK YOU 02/12/2023 4 added in this encounter Orders Outpatient Referral Count Last Ordered Date Fir st Ordered Date AMB REFERRAL TO ORTHOPEDIC SURGERY 1 2022 documented in this encounter Care Teams Board Certified Family Physician Relationship Specialty Start Date End Date Enmanuel Gan MD [address] [facility] [address] [place] [address] [place] [id number] PCP - General Internal Medicine 04/26/20 Tg Houston MD [address] [place] [address] Consulting Physician Cardiology 07/18/20 Guerrero Hunter DPT [address] [facility] [address] [facility] [place] [address] Physical Therapist Physical Therapy 11/08/20 Guerrero Weiner, [facility] [address] [facility] [address] [place] [address] Loan Secretary Physical Therapy 12/12/20 documented as of this encounter
--- OUTSIDE RECORDS SUMMARY | 2024-07-12 08:45 | XMS_ITS | Encounter Summary ---
Author Organization [facility] Address [address] [facility] [address] [place] [address] Care Team Providers Care Automatic Engraver Name Role Phone Enmanuel Gan MD Primary Care Provider [phone] Tg [place] MD Unavailable [phone] Guerrero Hunter DPT Unavailable [phone] Guerrero Weiner BILINGUAL INTERPRETER Unavailable [phone] Encounter Details Date Type Department Care Team (Late st Contact Info) Description 01/21/2023 Telephone [facility] Cardiology [address] [place] [address] Jeremy Hobbs MD [address] [place] [id number] Social History Tobacco Use Types Packs/Day Years [...] week 07/30/2020 How often do you attend [facility] or evangelical services? 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 Advised her to callback with any questions or concerns. documented in this encounter Plan of Treatment Not on file documented as of this encounter Visit Diagnoses Not on filedocumented in this encounter Care Teams Automatic Engraver Relationship Specialty Start Date End Date Enmanuel Gan MD [address] [place] [address] PCP - General Internal Medicine 04/26/20 Tg [place] MD [address] [facility] [address] [place] [address] Consulting Physician Cardiology 07/18/20 Guerrero Hunter DPT [address] [facility] [address] [facility] [place], [place] [id number] Physical Therapist Physical Therapy 11/08/20 Guerrero Weiner, [facility] [address] [place] [id number] [place] [address] Barge Engineer Physical Therapy 12/12/20 documented as of this encounter
--- OUTSIDE RECORDS SUMMARY | 2024-07-12 08:45 | XMS_ITS | Encounter Summary ---
Author Organization [facility] Address [address] [address] Care Team Providers Care Spinning Lathe Operator Hydraulic Name Role Phone Enmanuel Gan MD Primary Care Provider [phone] Tg [place] MD Unavailable [phone] Guerrero Hunter DPT Unavailable [phone] Guerrero Weiner SYSTEMS DEVELOPER Unavailable [phone] Reason for Visit * Cardiology (Routine) - Closed Specialty Diagnoses / Procedures Referred By Contwolfgang t Referred To Contact Diagnoses NICM (nonischemic cardiomyopathy) (CMS/HCC) (HCC) Procedures DEVICE CHECK - REMOTE Ashvin Recio III, MD Phone: tel: fax: [facility] Referral ID Status Reason Start Date Expiration Date Visits Re quested Visits Authorized [id number] Closed 06/06/2021 07/06/2022 1 1 Encounter Details Date Type Department Care Team (Latest Contact Info) Description 01/26/2023 1:00 PM CDT Ancillary Procedure [facility] [address] [facility] [address], [place] [address] ICD (implantable cardioverter-defibr illator), dual, in [...] often do you attend chur ch or restorationism services? 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 Gender Identity Not on file Sexual Orientation Lesbian 05/24/2019 9: 06 AM CDT documented as of this encounter Plan of Treatment Not on file documented as of this encounter Procedures Procedure Name Priority Date/Time Associated Diagnosis Comments DEVICE CHECK - REMOTE Routine 01/26/2023 12:16 PM CDT NICM (nonischemic cardiomyopathy) ([facility]/HCC) ([facility]) documented in this encounter Results * DEVICE CHECK - REMOTE (01/26/2023 12:16 PM CDT) Anatomical Region Laterality Modality Other Narrative 01/27/2023 6:09 PM CDT Table formatting from the original result was not included. ICD CHECK (REMOTE) Patient ID: Macie Briseno is a 77 y.o. female This patient received a Jackson scientific ICD. ??They had a remote transmission on 01/26/2023. Device implant indications: ??Nonischemic cardiomyopathy ?? Interrogation of the patient's device demonstrates the following: Presenting EGM: ??A sense V sense @ 80 bpm Original Device Settings Right Atrium Right Ventricle Sensitivity (mV) 0.25 mV 0.6 mV Pacing Outputs 2.5 V @ 0.4 ms 2.5 V @ 0.4 ms ?? Testing Measurements Right Atrium Right Ventricle Sensitivity (mV) 5.1 mV >25 mV Impedence (Ohms) 601 ohms 406 ohms High Voltage Impedence ??73 ohms Pace Threshold Not done V @ ??ms Not done V @ ??ms Pacing % 5 % 0 % Battery Status: ??10.5 years to YURIDIA with Charge Time 9.8 seconds Episodes last 90 days/Comments: AF [place] <1%. ??The longest episode lasted 8 seconds in duration. There was 1 stored episode classified as nonsustained VT which shows approximately 5 seconds of a dual tachycardia at 176 beats per minute. NORMAL DEVICE FUNCTION PROGRAMMED Medications: Anti-coagulant(s): ??Eliquis 5 mg twice daily Anti-arrhythmic(s): ??Diltiazem XR 180 mg daily PLAN: 1) normal Jackson scientific ICD evaluation. 2) Jackson scientific remote transmission scheduled in 3 months. 3) Programming appropriate for device measurements Yanni David RN Ashvin Recio III, MD [facility] C[facility]IAC SERVICES PROCEDURES Final Result documented in this encounter Visit Diagnoses Diagnosis ICD (implantable cardioverter-defibrillator), dual, in situ- Primary NICM (nonischemic cardiomyopathy) (CMS/HCC) ([facility]) documented in this encounter Care Teams Spinning Lathe Operator Hydraulic Relationship Specialty Start Date End Date Enmanuel Gan MD [address] [place] [phone] PCP - General Internal Medicine 04/26/20 Tg [place] MD [address] [facility] [address] [place] [address] Consulting Physician Cardiology 07/18/20 Guerrero Hunter DPT [address] [facility] [address] [facility] [place], [place] [id number] Physical Therapist Physical Therapy 11/08/20 Guerrero Weiner, [facility] [address] [facility] [address] [place], [place] [id number] Dyed Raw Stock Blower Feeder Physical Therapy 12/12/20 documented as of this encounter
--- OUTSIDE RECORDS SUMMARY | 2024-07-12 08:45 | XMS_ITS | Encounter Summary ---
Author Organization [facility] Address [address] [place] [address] Care Team Providers Care Software Test Automation Engineer Name Role Phone Enmanuel Gan MD Primary Care Provider [phone] Tg [place] MD Unavailable [phone] Guerrero Hunter DPT Unavailable [phone] Guerrero Weiner SOFTWARE PUBLISHER Unavailable [phone] Reason for Visit * Cardiology (Routine) - Closed Specialty Diagnoses / Procedures Referred By Contac t Referred To Contact Diagnoses NICM (nonischemic cardiomyopathy) (CMS/HCC) ([facility]) Procedures DEVICE CHECK - REMOTE Ashvin Recio III, MD [address] [facility] [address] [address] Phone: tel: fax: [facility] Referral ID Status Reason Start Date Expiration Date Visits Re quested Visits Authorized [id number] Closed 01/26/2023 07/29/2024 1 1 Encounter Details Date Type Department Care Team (Latest Contact Info) Description 05/02/2023 7:05 AM CDT Ancillary Procedure Arrhythmia Center [address] [facility] [address], [place] [address] ICD (implantable cardioverter-defibr illator), dual, in situ [...] attend chur ch or sabianism services? 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 ICD CHECK (REMOTE) Patient ID: Macie Briseno is a 77 y.o. female This patient received a Celina scientific ICD. ??They had a remote transmission [...] 9.8 seconds Episodes last 90 days/Comments: AF Duke 1%, longest duration 1 hour 28 minutes on March 24, 2023 average ventricular rate noted to be 117 beats per minute 3 stored ventricular events reviewed EGM show short durations of one-to-one tachy versus VT. NORMAL DEVICE FUNCTION PROGRAMMED Medications: Anti-coagulant(s): ??Eliquis 5 mg twice daily Anti-arrhythmic(s): ??Cardizem CD 180 mg PLAN: 1) normal Celina scientific ICD evaluation. 2) Celina science remote transmission scheduled in 3 months. 3) Programming appropriate for device measurements Latisha Self, RN Ashvin Recio III, MD CV CARDIAC SERVICES PROCEDURES Final Result documented in this encounter Visit Diagnoses Diagnosis ICD (implantable cardioverter-defibrillator), dual, in situ- Primary NICM (nonischemic cardiomyopathy) (CMS/HCC) (HCC) documented in this encounter Care Teams Software Test Automation Engineer Relationship Specialty Start Date End Date Enmanuel Gan MD [address] [place] [address] PCP - General Internal Medicine 04/26/20 Tg [place] MD [address] [facility] [address] [place] [address] Consulting Physician Cardiology 07/18/20 Guerrero Hunter DPT [address] [facility] [address] [facility] [place] [address] Physical Therapist Physical Therapy 11/08/20 Guerrero Weiner, SOFTWARE PUBLISHER [address] [facility] [address] [place] [address] Carton Counter Feeder Physical Therapy 12/12/20 documented as of this encounter
--- OUTSIDE RECORDS SUMMARY | 2024-07-12 08:45 | XMS_ITS | Encounter Summary ---
Author Organization [facility] Address [address] [facility] [address] [place] [address] Care Team Providers Care Kinesiologist Name Role Phone Enmanuel Gan MD Primary Care Provider [phone] Tg [place] MD Unavailable [phone] Guerrero Hunter DPT Unavailable [phone] Guerrero Weiner TRANSPORTATION DISPATCHER Unavailable [phone] Encounter Details Date Type Department Care Team (Late st Contact Info) Description 12/17/2022 Telephone [facility] Cardiology [address] [place] [address] Jeremy Hobbs MD [address] [place] [id number] Social History Tobacco Use Types Packs/Day Years [...] 07/30/2020 How often do you attend [facility] or yarsanism services? 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 Order adjusted and sent to lab. Started PA for Split night documented in this encounter Plan of Treatment Not on file documented as of this encounter Visit Diagnoses Not on filedocumented in this encounter Care Teams Kinesiologist Relationship Specialty Start Date End Date Enmanuel Gan MD [address] [place] [address] PCP - General Internal Medicine 04/26/20 Tg [place] MD [address] [facility] [address] [place] [address] Consulting Physician Cardiology 07/18/20 Guerrero Hunter DPT [address] [facility] [address] [place], [place] [id number] Physical Therapist Physical Therapy 11/08/20 Guerrero Weiner, [facility] [address] [place] [address] [place] [address] Cement Mixer Physical Therapy 12/12/20 documented as of this encounter
--- OUTSIDE RECORDS SUMMARY | 2024-07-12 08:45 | XMS_ITS | Encounter Summary ---
Author Organization [facility] Address [address] [place] [address] Phone Care Team Providers Care Spindle Plumber Name Role Phone Enmanuel Gan MD Primary Care Provider [phone] Tg Houston MD Unavailable [phone] Guerrero Hunter DPT Unavailable [phone] Guerrero Weiner ELECTRIC PILE DRIVER OPERATOR Unavailable [phone] Reason for Referral * MRI/CAT/PET Scan (Routine) - Closed Specialty Diagnoses / Procedures Referred By Contac t Referred To Contact Radiology Diagnoses Fusion of spine of lumbar region Procedures CT Lumbar Spine WO Contrast Jeremy Michelle MD [address] [facility] [place] [address] Phone: tel: fax: [address] [address] Referral ID Status Reason Start Date Expiration Date Visits Re quested Visits Authorized [id number] Closed 05/21/2023 11/17/2023 1 1 * Diagnostic Imaging (Routine) - Closed Specialty Diagnoses / Procedures Referred By Contac t Referred To Contact Diagnoses Fusion of spine of lumbar region Procedures XR Scoliosis 6 or More Views Jeremy Michelle MD [address] [facility] [place] [address] Phone: tel: fax: [facility] Referral ID Status Reason Start Date Expiration Date Visits Re quested Visits Authorized [id number] Closed 02/06/2023 03/07/2024 1 1 Encounter Details Date Type Department Care Team (Late st Contact Info) Description 02/10/2023 8:30 AM CDT Office Visit [facility] Orthopaedic Surgery [address] [facility] 6th [place] [address] [place] [id number] Jeremy Michelle MD [address] [facility] [place] [address] Fusion of spine of lumbar region (Primary [...] week 07/30/2020 How often do you attend [facility] or episcopalian services? Never 07/30/2020 Do you belong to [...] on file Legal Sex Female 9:09 PM LEARNING AND DEVELOPMENT MANAGER Gender Identity Not on file Sexual Orientation Lesbian 05/24/2019 9: 06 AM CDT documented as of this encounter Last Filed Vital Signs Vital Sign Reading Time Taken Comments Blood Pressure - - Pulse - - Temperature - - Respiratory Rate - - Oxygen Saturation - - Inhaled Oxygen Concentration - - Weight 77.6 kg (171 lb) 02/10/2023 9:24 AM CDT Height 162.6 cm (5' 4 ) 02/10/2023 9:24 AM CDT Body Mass Index 29.35 02/10/2023 9:24 AM CDT documented in this encounter Patient Instructions * Patient Instructions* Cyndie Byers RN - 02/10/2023 8:30 AM CDT Thank you for your visit today we are pleased to be here to assist with your spine needs. Sincerely, Dr. Jeremy Michelle & Cyndie Byers RN Please contact Dr. Miguel Angel Agee's Nurse if you have any questions. Mail disc to: [facility] Attn: Cyndie/ Dr. Michelle [address] [place] [address] documented in this encounter Progress Notes * Jeremy Michelle MD - 02/10/2023 8:30 AM CDT Images from the original note were not included. Established Patient Visit Interim History Macie Briseno returns to our office today for a postoperative follow-up visit. 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 This was done in 07/25/2020. Since then, she is had continued low back pain and some right leg pain which is very mild and she has been able to tolerate it and perform all the activities of her daily living. She says that her right leg pain had been feeling better up until a trip that she had recently where she went to [place] and was walking multiple miles a day. She subsequently developed right knee pain that has limited her ability to ambulate. Overall, she states that her back pain [...] screws which is stable from prior imaging. There does not appear norm any implant failure in the sense of fracture, backing out or further loosening. Impression/Diagnosis/Treatment Plan Macie is a 77-year-old male that is status post the above operation. It appears that the majorityof her right leg pain is unrelated to her spine. She is seen Dr. An for her hip and her knee. She actually states that her right knee is the greatest source of her pain and limitation at this time. That said, her back pain and truncal weakness is unchanged and we discussed that it may benefit her to get a repeat CT scan of her spine to assess for nonunion. Following this imaging we can discuss further steps of management whether that be a revision of the nonunion or further nonoperative symptomatic management. Attending attestation This is a pleasant 77-year-old female who is now 2 and half years out from her revision lumbar decompression fusion. She is actually been doing quite well since I saw her last time. She is certainly not getting worse. She has some vague pain but seems to gradually just improve. We had concerns about healing of the screws and possible nonunion at the top level. On review of it today on the obliqueviews of her films it actually looks like it is possible that this has gone on to fuse. On her CT scan 6 months ago it was close. On her plain films today there is no movement of the screws/ no backing out /no trouble with the hardware. She says her symptoms have actually been doing ok - she is been doing well certainly not getting worse probably continues to get a little better. I think she is probably fused here and is pretty stable here. We are going to get a CT scan before her 3 year follow-up and then talk at that visit about what those look like, but I suspect we will not need to revisethis. She is intact throughout. All questions answered today patient agrees with the plan. Jeremy Michelle MD PhD Eye Physician of Orthopaedic Geotechnical Engineering TechnicianEye Physician of Neurological Surgery [facility] in [facility], [place] Agricultural [employer]ender done by [employer]; therefore, variances and inaccuracies may occur. I reviewed the patient problem list pertinent to the visit today, but the entire patient problem list was not reviewed today. * Jeremy Michelle MD - 02/10/2023 8:30 AM CDT documented in this encounter Plan of Treatment Not on file documented as of this encounter Results * CT Lumbar Spine WO Contrast (06/08/2023 9:39 AM LEARNING AND DEVELOPMENT MANAGER) Anatomical Region Laterality Modality Spine N/A Computed Tomogra phy 06/08/2023 10:2 4 AM LEARNING AND DEVELOPMENT MANAGER Impressions 06/08/2023 10:45 AM LEARNING AND DEVELOPMENT MANAGER Postoperative changes of revision posterior instrumented fusion [...] Rere Peralta M.D. Narrative 06/08/2023 10:45 AM LEARNING AND DEVELOPMENT MANAGER EXAMINATION: CT of the lumbar spine without [...] it. Electronically signed by: Rere Peralta M.D. us Jeremy Michelle MD IMG CT PROCEDURES Fi nal Result * XR Scoliosis 6 or More Views [...] Electronically signed by: Abelardo Rosales MD, PHD Jeremy Michelle MD IMG XR PROCEDURES Fi nal Result documented in this encounter Visit Diagnoses Diagnosis Fusion of spine of lumbar region- Primary Fusion of spine of lumbar region Fusion of spine of lumbar region documented in this encounter Historical Medications * This list may reflect changes made after this encounter. doxepin (SINEquan) 25 mg capsuleIndicatio ns:sleep Take 1-2 capsules (25-50 mg total) by mouth nightly as needed for sleep 02/04/2023 12/14/2023 added in this encounter Care Teams Spindle Plumber Relationship Specialty Start Date End Date Enmanuel Gan MD [address] [facility] [address] [place] [address] PCP - General Internal Medicine 04/26/20 Tg Houston MD [address] [facility] [address] [place] [address] Consulting Physician Cardiology 07/18/20 Guerrero Hunter DPT [address] [facility] [address] [place], [place] [id number] Physical Therapist Physical Therapy 11/08/20 Guerrero Weiner, ELECTRIC PILE DRIVER OPERATOR [address] [facility] [address] [place] [address] [facility] Physical Therapy 12/12/20 documented as of this encounter
--- OUTSIDE RECORDS SUMMARY | 2024-07-12 08:46 | XMS_ITS | Encounter Summary ---
Author Organization [facility] Address [address] [place] [address] Care Team Providers Care Roofing Machine Operator Name Role Phone Enmanuel Gan MD Primary Care Provider [phone] Tg Houston MD Unavailable [phone] Guerrero Hunter DPT Unavailable [phone] Guerrero Weiner PEST MANAGEMENT SUPERVISOR Unavailable [phone] Reason for Referral * Hospital - Outpatient (Routine) - Closed Specialty Diagnoses / Procedures Referred By Gigi orosco Referred To Contact Diagnoses Apical variant hypertrophic cardiomyopathy (HCC) SNIDER (dyspnea on exertion) Localized edema Procedures Transthoracic Echo (TTE) Complete W Doppler/CF Pedro Mcmahan NP [address] [facility] [address] [place] [address] Phone: tel: fax: [facility] [address] [place] [address] Referral ID Status Reason Start Date Expiration Date Visits Re quested Visits Authorized [id number] Closed 07/01/2022 07/31/2023 1 1 ER STAMP ASSEMBLER Reason for Visit * Hospital - Outpatient (Routine) - Closed Specialty Diagnoses / Procedures Referred By Gigi orosco Referred To Contact Diagnoses Apical variant hypertrophic cardiomyopathy (HCC) SNIDER (dyspnea on exertion) Localized edema Procedures Transthoracic Echo (TTE) Complete W Doppler/CF Pedro Mcmahan, LU [address] [place] [address] Phone: tel: fax: [facility] [address] [place] [address] Referral ID Status Reason Start Date Expiration Date Visits Re quested Visits Authorized [id number] Closed 07/01/2022 07/31/2023 1 1 Encounter Details Date Type Department Care Team (Latest Contact Info) Description 07/15/2022 2:16 PM RUBBER STAMP ASSEMBLER - 07/15/2022 11:59 PM RUBBER STAMP ASSEMBLER Hospital Encounter [facility] OP Cardiac Testing [address] [place] [address] Apical variant hypertrophic cardiomyopathy (CMS/HCC) (HCC); SNIDER (dyspnea on exertion); Localized edema Discharge Disposition: Discharge to home or self [...] How often do you attend chur or christian services? Never 07/30/2020 Do you belong to any clubs o r organizations such as presybeterian groups, unions, fraternal or athletic groups, or [...] on file Legal Sex Female 9:09 PM RUBBER STAMP ASSEMBLER Gender Identity Not on file Sexual Orientation [...] mg total) by mouth every morning 4 dilTIAZem XR (CARDIZEM CD,DILACOR XR) 180 mg 24 hr capsule Take 1 capsule (180 mg total) by mouth daily 90 capsule 1 04/15/[address] (CYMBALTA) 30 mg capsuleIndications: Anxiety [...] 1 tablet by mouth every morning 4 montelukast (SINGULAIR) 10 mg tablet 02/19/2022 3 potassium chloride ER 20 mEq CR [...] traZODone (DESYREL) 50 mg tablet 10/28/2021 3 triamterene-hydroCH LOROthiazide 37.5-25 mg per capsule TAKE ONE CAPSULE BY MOUTH ONCE DAILY 90 capsule 3 11/17/2019 3 documented as of this encounter Discharge Disposition Disposition Code Departure Means Destination Discharge to home or self care documented in this encounter Plan of Treatment Not on file documented as of this encounter Procedures Procedure Name Priority Date/Time Associated Diagnosis Comments TRANSTHORACIC ECHO (TTE) COMPLETE W DOPPLER/CF WO CONTRAST Routine 07/15/2022 3:00 PM RUBBER STAMP ASSEMBLER Apical variant hypertrophic cardiomyopathy (CMS/HCC) (HCC) SNIDER (dyspnea on exertion) Localized edema documented in this encounter Results * TRANSTHORACIC ECHO (TTE) COMPLETE W DOPPLER/CF WO CONTRAST (07/15/2022 3:00 PM RUBBER STAMP ASSEMBLER) Anatomical Region Laterality Modality Ultrasound 07/15/2022 2:17 PM RUBBER STAMP ASSEMBLER Narrative 07/16/2022 2:15 PM RUBBER STAMP ASSEMBLER [facility] [place] [address] ECHOCARDIOGRAM Patient Name: CITLALY BRISENO : 1945 Study Date: 07/15/2022 2:17:20 PM Gender: F Tech: Location: OP Ref.Provider: PEDRO DENNIS Height(Cm): 163 BSA: 1.9 Weight(Kg): 79.8 BP: 132/66Order Provider: PEDRO DENNIS - Procedures: Echocardiographic Report: Transthoracic Echocardiogram with complete 2D, M-Mode, Spectral and Color Flow Doppler examination. Indications: Apical hypertrophic cardiomyopathy, dyspnea on exertion, edema. Measurements: 2D/M Mode ?Doppler ? Measurement ?Value ?Normal Range ? Measurement ?Value ?Normal Range ? IVSd 2D ?0.97 ? [ 0.60 - 0.90 ] cm ? AV Peak Wagner ?1.5 ?[ 1.0 - 1.7 ] m/s ? LVIDd 2D ? 3.90 ? [ 3.90 - 5.30 ] cm ? AV Peak PG ? 9 ?[ 2 - 9 ] mmHg ? LVIDs 2D ? 2.12 ? [ 2.30 - 3.90 ] cm ? AV Mean PG ? 5 ?[ 2 - 4 ] mmHg ? LVPWd 2D ? 0.97 ? [ 0.60 - 1.00 ] cm ? AV VTI ? 30.9 ? cm ? LA Dimen 2D ?3.30 ? cm ? MAT V max ?1.7 ?cm2 ? AR Diam 2D ? 2.90 ? cm ? MAT VTI ?1.8 ?[ 2.0 - 4.0 ] cm2 ? LA Volume Index ?27.93 ?[ 16.00 - 28.00 ] ml/m2 ?LVOT Peak Wagner ?1.30 ? [ 0.70 - 1.10 ] m/s ? TAPSE ?1.70 ? [ 1.60 - 3.00 ] cm ? LVOT Diam ?1.6 ?[ 1.7 - 2.1 ] cm ? LVOT Peak PG ? 7 ?[ 2 - 6 ] mmHg ? LVOT VTI ? 29.1 ? [ 20.0 - 30.0 ] cm ? MV Peak PG ? 3 ?[ 1 - 10 ] mmHg ? MV Mean PG ? 1 ?[ <= 5 ] mmHg ? MV E Peak Wagner ?0.9 ?[ 0.6 - 1.3 ] m/s ? MV A Peak Wagner ?0.8 ?[ 1.0 - 1.2 ] m/s ? MV PHT ? 51.7 ? [ 20.0 - 100.0 ] ms ? MV Decel Time ?169.9 ?[ 104.0 - 258.0 ] ms ? MVA PHT ?4.3 ?[ 2.0 - 4.0 ] ms ? MV E/A Ratio ? 1.1 ? RA Pressure ?3.0 ?mmHg ? PV Peak Wagner ?1.1 ?[ 0.4 - 0.8 ] m/s ? PV Peak PG ? 5 ?mmHg ? Lat E` Wagner ? 0.08 ? [ 0.10 - 0.15 ] m/s ? Sept E' Wagner ?0.07 ? [ 0.08 - 0.15 ] m/s ? E/E` ? 11.25 ? RV S' ?0.10 ? m/s ? - Findings: Study Quality: The study was technically adequate. BP: Blood pressure: 132/66 mmHg. Left Ventricle: Normal global and regional left ventricular systolic function. LV systolic function is hyperdynamic. Ejection Fraction is estimated at 75 %. Left ventricular diastolic function is indeterminate. The left ventricular cavity is low normal in size. LV wall thickness is within normal limits. Right Ventricle: Normal right ventricular systolic function. Normal right ventricular size. Device wire(s) noted in RA/RV. Left Atrium: There is borderline enlargement of the left atrium. Right Atrium: The right atrium is normal in size. Atrial Septum: Normal appearing atrial septum. Cannot exclude PFO by atrial septal color Doppler interrogation. Mitral Valve: Normal appearance of the mitral valve leaflets. Trace mitral valve regurgitation. Aortic Valve: Normal appearance of the aortic valve. Aortic valve appears tricuspid in configuration. There is no aortic stenosis. There is no aortic regurgitation. Tricuspid Valve: Grossly normal appearing tricuspid valve. Trace tricuspid regurgitation. TR envelope inadequate to estimate RVSP. Pulmonic Valve: Grossly normal appearing pulmonic valve. There is no pulmonic stenosis. Pericardium: No significant pericardial effusion. Aortic Root and Aorta: The sinuses of Valsalva are normal. Aortic Arch: Normal caliber aortic arch. IVC: Normal appearance of the inferior vena cava. Conclusions: 1. Normal global and regional left [...] the patient is in normal sinus rhythm. Electronically Signed By: Cam Tejeda MD [facility] 2022-07-16 14:15:06 RUBBER STAMP ASSEMBLER CC: CC: Procedure Note Cam Tejeda MD - 07/16/2022 [facility] [address] [place] [address] ECHOCARDIOGRAM Patient Name: CITLALY BRISENOPatient ID: [id number] : [id number] Date: 07/15/2022 2:17:20 PM Gender: FAccession #: [id number] Tech: MKLocation: OP Ref.Provider: PEDRO DENNISHeight(Cm): 163 BSA: 1.9Weight(Kg): 79.8 BP: 132/66Order Provider: PEDRO DENNIS - Procedures: Echocardiographic Report: Transthoracic Echocardiogram with complete 2D, M-Mode, Spectral and ColorFlow Doppler examination. Indications: Apical hypertrophic cardiomyopathy, dyspnea on exertion, edema. Measurements: 2D/M Mode Doppler Measurement Value Normal Range MeasurementValue Normal Range IVSd 2D 0.97 [ 0.60 - 0.90 ] cm AV Peak Vel1.5 [ 1.0 - 1.7 ] m/s LVIDd 2D 3.90 [ 3.90 - 5.30 ] cm AV Peak PG 9[ 2 - 9 ] mmHg LVIDs 2D 2.12 [ 2.30 - 3.90 ] cm AV Mean PG 5[ 2 - 4 ] mmHg LVPWd 2D 0.97 [ 0.60 - 1.00 ] cm AV VTI30.9 cm LA Dimen 2D 3.30 cm MAT V max1.7 cm2 AR Diam 2D 2.90 cm MAT VTI1.8 [ 2.0 - 4.0 ] cm2 LA Volume Index 27.93 [ 16.00 - 28.00 ] ml/m2 LVOT Peak Vel1.30 [ 0.70 - 1.10 ] m/s TAPSE 1.70 [ 1.60 - 3.00 ] cm LVOT Diam1.6 [ 1.7 - 2.1 ] cm LVOT Peak PG 7[ 2 - 6 ] mmHg LVOT VTI29.1 [ 20.0 - 30.0 ] cm MV Peak PG 3[ 1 - 10 ] mmHg MV Mean PG 1[ <= 5 ] mmHg MV E Peak Vel0.9 [ 0.6 - 1.3 ] m/s MV A Peak Vel0.8 [ 1.0 - 1.2 ] m/s MV PHT51.7 [ 20.0 - 100.0 ] ms MV Decel Edmt373.9 [ 104.0 - 258.0 ] ms MVA PHT4.3 [ 2.0 - 4.0 ] ms MV E/A Ratio1.1 RA Pressure3.0 mmHg PV Peak Vel1.1 [ 0.4 - 0.8 ] m/s PV Peak PG 5mmHg Lat E` Vel0.08 [ 0.10 - 0.15 ] m/s Sept E' Vel0.07 [ 0.08 - 0.15 ] m/s E/E`11.25 RV S'0.10 m/s - Findings: Study Quality: The study was technically adequate. BP: Blood pressure: 132/66 mmHg. Left Ventricle: Normal global and regional left ventricular systolic function. LV systolicfunction is hyperdynamic. Ejection Fraction is estimated at 75 %. Left ventriculardiastolic function is indeterminate. The left ventricular cavity is low normal in size. LVwall thickness is within normal limits. Right Ventricle: Normal right ventricular systolic function. Normal right ventricular size.Device wire(s) noted in RA/RV. Left Atrium: There is borderline enlargement of the left atrium. Right Atrium: The right atrium is normal in size. Atrial Septum: Normal appearing atrial septum. Cannot exclude PFO by atrial septal colorDoppler interrogation. Mitral Valve: Normal appearance of the mitral valve leaflets. Trace mitral valveregurgitation. Aortic Valve: Normal appearance of the aortic valve. Aortic valve appears tricuspid inconfiguration. There is no aortic stenosis. There is no aortic regurgitation. Tricuspid Valve: Grossly normal appearing tricuspid valve. Trace tricuspid regurgitation.TR envelope inadequate to estimate RVSP. Pulmonic Valve: Grossly normal appearing pulmonic valve. There is no pulmonic stenosis. Pericardium: No significant pericardial effusion. Aortic Root and Aorta: The sinuses of Valsalva are normal. Aortic Arch: Normal caliber aortic arch. IVC: Normal appearance of the inferior vena cava. Conclusions: 1. Normal global and regional left ventricular systolic function. LVsystolic function is hyperdynamic. Ejection Fraction is estimated at 75 %. Left ventriculardiastolic function is indeterminate. The left ventricular cavity is low normal in size. LVwall thickness is within normal limits. 2. Normal right ventricular systolic function. Normal right ventricularsize. Device wire(s) noted in RA/RV. 3. There is borderline enlargement of the left atrium. 4. Normal appearance of the mitral valve leaflets. Trace mitral valveregurgitation. 5. Grossly normal appearing tricuspid valve. Trace tricuspidregurgitation. TR envelope inadequate to estimate RVSP. 6. At the time of this study the patient is in normal sinus rhythm. Electronically Signed By: Cam Tejeda MD [facility] 2022-07-16 14:15:06 RUBBER STAMP ASSEMBLER CC: CC: Pedro Mcmahan BOX SHOOK PATCHER CV ECHO PROCEDURES Fin al Result documented in this encounter Visit Diagnoses Diagnosis Apical variant hypertrophic cardiomyopathy (HCC) SNIDER (dyspnea on exertion) Other dyspnea and respiratory abnormality Localized edema Edema documented in this encounter Care Teams Roofing Machine Operator Relationship Specialty Start Date End Date Enmanuel Gan MD [address] [place] [address] PCP - General Internal Medicine 04/26/20 Tg Houston MD [address] [place] [address] Consulting Physician Cardiology 07/18/20 Guerrero Hunter DPT [address] [facility] [address] [place] [address] Physical Therapist Physical Therapy 11/08/20 Guerrero Weiner, PEST MANAGEMENT SUPERVISOR [address] [facility] [address] [place] [address] Community Reinvestment Act Officer Physical Therapy 12/12/20 documented as of this encounter
--- OUTSIDE RECORDS SUMMARY | 2024-07-12 08:46 | XMS_ITS | Encounter Summary ---
Author Organization [facility] Address [address] [place] [address] Care Team Providers Care Tip Fixer Name Role Phone Enmanuel Gan MD Primary Care Provider [phone] Tg Houston MD Unavailable [phone] Guerrero Hunter DPT Unavailable [phone] Guerrero Weiner FLUORESCENT LAMP REPLACER Unavailable [phone] Reason for Visit * Cardiology (Routine) - Closed Specialty Diagnoses / Procedures Referred By Contac t Referred To Contact Diagnoses NICM (nonischemic cardiomyopathy) (CMS/HCC) (HCC) Procedures DEVICE CHECK - REMOTE Ashvin Recio III, MD Phone: tel: fax: [facility] Referral ID Status Reason Start Date Expiration Date Visits Re quested Visits Authorized [id number] Closed 06/06/2021 07/06/2022 1 1 Encounter Details Date Type Department Care Team (Latest Contact Info) Description 07/11/2022 7:00 AM DISTRICT SUPERVISOR Ancillary Procedure [facility] [address], [place] [address] NICM (nonischemic cardiomyopathy) (CMS/HCC) (HCC); ICD (implantable cardioverter-defibr illator), dual, in situ [...] attend chur ch or yazidi services? Never 07/30/2020 Do you belong to any clubs o r organizations such as orthodox groups, unions, fraAccountable or athletic groups, or school groups? No [...] on file Legal Sex Female 9:09 PM DISTRICT SUPERVISOR Gender Identity Not on file Sexual Orientation Lesbian 05/24/2019 9: 06 AM CDT documented as of this encounter Plan of Treatment Not on file documented as of this encounter Procedures Procedure Name Priority Date/Time Associated Diagnosis Comments DEVICE CHECK - REMOTE Routine 07/11/2022 3:45 PM DISTRICT SUPERVISOR NICM (nonischemic cardiomyopathy) (CMS/HCC) (HCC) documented in this encounter Results * DEVICE CHECK - REMOTE (07/11/2022 3:45 PM DISTRICT SUPERVISOR) Anatomical Region Laterality Modality Other Narrative 07/17/2022 2:46 PM DISTRICT SUPERVISOR Table formatting from the original result was not included. ICD CHECK (REMOTE) Patient ID: Macie Briseno is a 76 y.o. female This patient received a [employer] scientific ICD. ??They had a remote transmission on 07/11/2022. Device implant indications: ??Nonischemic cardiomyopathy, Mobitz type 2 ?? Interrogation of the patient's device demonstrates the following: Presenting EGM: ??A sense V sense @ 70 bpm Original Device Settings Right Atrium Right Ventricle Sensitivity (mV) 0.25 mV 0.60 mV Pacing Outputs 2.5 V @ 0.40 ms 2.5 V @ 0.40 ms ?? Testing Measurements Right Atrium Right Ventricle Sensitivity (mV) 7.5 mV >25.0 mV Impedence (Ohms) 554 ohms 418 ohms High Voltage Impedence ??77 ohms Pace Threshold Not done V @ ??ms Not done V @ ??ms Pacing % 4 % 0 % Battery Status: ??10.5 years to YURIDIA with Charge Time 9.8 seconds Episodes last 90 days/Comments: AF [place] 0.1 %, longest duration reviewed EGM show short durations of dual tachycardia verses AT/AF. 2 stored ventricular events longest noted nonsustained event occurred on June 25, 2022 with a ventricular rate of 199 beats per minute for approximately 5.5 seconds in length. NORMAL DEVICE FUNCTION PROGRAMMED Medications: Anti-coagulant(s): ??Eliquis 5 mg twice daily Anti-arrhythmic(s): ??Cardizem CD 180 mg PLAN: 1) normal [employer] scientific ICD evaluation. 2) [employer] scientific remote transmission scheduled in 3 months. 3) Programming appropriate for device measurements Latisha Self RN Ashvin Recio III, MD CV CARDIAC SERVICES PROCEDURES Final Result documented in this encounter Visit Diagnoses Diagnosis NICM (nonischemic cardiomyopathy) ([facility]) ([facility]) ICD (implantable cardioverter-defibrillator), dual, in situ documented in this encounter Care Teams Tip Fixer Relationship Specialty Start Date End Date Enmanuel Gan MD [address] [place] [address] PCP - General Internal Medicine 04/26/20 Tg Houston MD [address] [facility] [address] [place] [address] Consulting Physician Cardiology 07/18/20 Guerrero Hunter DPT [address] [facility] [address] [id number] Physical Therapist Physical Therapy 11/08/20 Guerrero Weiner, [facility] [address] [place], [place] [id number] Laborer Demolition Physical Therapy 12/12/20 documented as of this encounter
--- OUTSIDE RECORDS SUMMARY | 2024-07-12 08:46 | XMS_ITS | Encounter Summary ---
Author Organization [facility] Address [address] [place] [address] Care Team Providers Care Ip Technology Transactions Attorney Name Role Phone Enmanuel Gan MD Primary Care Provider [phone] Tg Houston MD Unavailable [phone] Guerrreo Hunter DPT Unavailable [phone] Guerrero Weiner FIRE MARSHAL REFINERY Unavailable [phone] Reason for Visit * Diagnostic Imaging (Routine) - Closed Specialty Diagnoses / Procedures Referred By Gigi t Referred To Contact Diagnoses Paroxysmal atrial fibrillation (CMS/HCC) (HCC) Microvascular angina (HCC) SNIDER (dyspnea on exertion) Procedures NM MPI SPECT (Rest and/or Stress) Multiple Studies Maninder Spencer MD [address] [address] Phone: tel: fax: Referral ID Status Reason Start Date Expiration Date Visits Re quested Visits Authorized [id number] Closed 11/28/2022 12/28/2023 1 1 Encounter Details Date Type Department Care Team (Latest Contact Info) Description 12/17/2022 8:15 AM CDT Ancillary Procedure [facility] Cardiology [address] [place] [address] Paroxysmal atrial fibrillation (CMS/HCC) (HCC); Microvascular angina (CMS/HCC) (HCC); SNIDER (dyspnea on exertion) Social History Tobacco Use Types Packs/Day Years [...] any clubs o r organizations such as sikh groups, unions, fraternal or athletic groups, or [...] on file 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 Gender Identity Not on file Sexual Orientation Lesbian 05/24/2019 9: 06 AM CDT documented as of this encounter Plan of Treatment Not on file documented as of this encounter Procedures Procedure Name Priority Date/Time Associated Diagnosis Comments NM MPI SPECT (REST AND/OR STRESS) MULTIPLE STUDIES Schedule Routine, Read Routine (OP Routine) 12/17/2022 9:46 AM CDT Paroxysmal atrial fibrillation (CMS/HCC) (HCC) Microvascular angina (CMS/HCC) (HCC) SNIDER (dyspnea on exertion) documented in this encounter Results * NM MPI SPECT (Rest and/or Stress) Multiple Studies (12/17/2022 9:46 AM CDT) Anatomical Region Laterality Modality Body N/A Nuclear Medicine 12/17/2022 8:46 AM CDT Narrative 12/17/2022 4:27 PM CDT [facility] Cardiology [address] [facility] [address], [place] [address] [address] [facility] [address], [place] [address] P:[phone] P:[phone] MPI Imaging Report Patient Name: CITLALY BRISENO G : 1945 Study Date: 12/17/2022 8:46:34 AM Gender: F Tech: [facility] Location: [place] Ref.Provider: MANINDER SPENCER Height(Cm): 162.6 BSA: Weight(Kg): 76.2 BMI: 28.82Order Provider: MANINDER SPENCER - Physician: Referring Physician: Dr. Gan. HCG Physician: Ramos Spencer M.D. Interpreting Physician: Yovani Hawthorne M.D. Stress Supervision: Edgardo Ramos M.D., F.A.C.C. Procedures: Myocardial perfusion imaging with Tc99M Sestamibi SPECT at rest and stress post regadenoson (Lexiscan) infusion. Indications: Paroxysmal Atrial Fibrillation, Fatigue, High Cholesterol, and SNIDER. Findings: Patient assessment: The patient has an ICD. Procedural Findings: One day rest/stress was used. Tc99m Sestamibi injected IV at rest was 10.2 millicuries. 33.0 millicuries of Tc99M Sestamibi injected IV during Lexiscan stress. Lexiscan 0.4mg administered IV over 10 seconds. Pharmacologic stress related symptoms and/or side effects during infusion include nausea. Symptoms were resolved with completion of Lexiscan protocol. Baseline heart rate was 67 BPM. Maximum Heart Rate Achieved was: 88 BPM. Baseline blood pressure was 160/96 mmHg. Post Stress Blood Pressure was 140/84 mmHg. Termination: Protocol complete. Resting ECG: Sinus rhythm. Nonspecific T wave abnormality. Post ECG: No diagnostic ST changes. Arrhythmia: Occasional APCs. Perfusion Findings: Normal perfusion imaging. No definite fixed or reversible defects. Technical quality of study is excellent. Prone imaging was performed. Left ventricle cavity size at rest is normal. Left ventricle cavity size with stress is unchanged. A TID of 1.02 was automatically calculated. LV Function: Global left ventricular function is normal. Left ventricular ejection fraction is 59 %. Conclusions: Sinus rhythm. Nonspecific T wave abnormality. Recommend follow up with lone lead lineman. Nonspecific T-wave abnormality persisted after regadenoson injection. Correlate with MPI. Global left ventricular function is normal. Left ventricular ejection fraction is 59 %. Myocardial perfusion imaging is normal. Electronically Signed By: Edgardo Ramos MD, [facility] 2022-12-17 13:01:50 CDT Electronically Signed By: Yovani Hawthorne MD 2022-12-17 16:27:49 CDT CC: CC: Procedure Note Frankie Hawthorne MD - 12/17/2022 [facility] Cardiology [address] [facility] [address], [place] [address] [address] [facility] [address], [place] [address] P:[phone] P:[phone] MPI Imaging Report Patient Name: CITLALY BRISENO GPatient ID: [id number] : [id number] Date: 12/17/2022 8:46:34 AM Gender: FAccession #: [id number] Tech: ELEUTERIO, CNMTLocation: [place] Ref.Provider: Hector SPENCER(Cm): 162.6 BSA: Weight(Kg): 76.2 BMI: 28.82Order Provider: MANINDER SPENCER - Physician: Referring Physician: Dr. Gan. HCG Physician: Ramos Spencer M.D.Interpreting Physician: Yovani Hawthorne M.D. Stress Supervision: Edgardo Ramos M.D.,F.A.C.C. Procedures: Myocardial perfusion imaging with Tc99M Sestamibi SPECT at rest and stresspost regadenoson (Lexiscan) infusion. Indications: Paroxysmal Atrial Fibrillation, Fatigue, High Cholesterol, and SNIDER. Findings: Patient assessment: The patient has an ICD. Procedural Findings: One day rest/stress was used. Tc99m Sestamibi injected IV at rest was 10.2millicuries. 33.0 millicuries of Tc99M Sestamibi injected IV during Lexiscan stress.Lexiscan 0.4mg administered IV over 10 seconds. Pharmacologic stress related symptomsand/or side effects during infusion include nausea. Symptoms were resolved withcompletion of Lexiscan protocol. Baseline heart rate was 67 BPM. Maximum Heart RateAchieved was: 88 BPM. Baseline blood pressure was 160/96 mmHg. Post Stress Blood Pressurewas 140/84 mmHg. Termination: Protocol complete. Resting ECG: Sinus rhythm. Nonspecific T wave abnormality. Post ECG: No diagnostic ST changes. Arrhythmia: Occasional APCs. Perfusion Findings: Normal perfusion imaging. No definite fixed or reversible defects.Technical quality of study is excellent. Prone imaging was performed. Left ventricle cavitysize at rest is normal. Left ventricle cavity size with stress is unchanged. A TID of 1.02was automatically calculated. LV Function: Global left ventricular function is normal. Left ventricular ejectionfraction is 59 %. Conclusions: Sinus rhythm. Nonspecific T wave abnormality. Recommend follow up with lone lead lineman. Nonspecific T-wave abnormality persisted after regadenoson injection.Correlate with MPI. Global left ventricular function is normal. Left ventricular ejectionfraction is 59 %. Myocardial perfusion imaging is normal. Electronically Signed By: Edgardo Ramos MD, [facility] 2022-12-17 13:01:50 CDT Electronically Signed By: Yovani Hawthorne MD 2022-12-17 16:27:49 CDT CC: CC: us Maninder Spencer MD IMG NM PROCEDURES Final R esult documented in this encounter Visit Diagnoses Diagnosis Paroxysmal atrial fibrillation (CMS/HCC) (HCC) Atrial fibrillation Microvascular angina (HCC) SNIDER (dyspnea on exertion) Other dyspnea and respiratory abnormality documented in this encounter Administered Medications Inactive Administered Medications - up to 3 most recent administrations Medication Order MAR Action Action Date Dose Rate Site regadenoson (LEXISCAN) 0.4 mg/5 mL injection 0.4 mg 0.4 mg, intravenous, Once, On Thu12/17/22 at 1030, For 1 dose, Administer IV push over 10 seconds., Indications: Myocardial Perfusion Imaging AdjunctIndications:Myocard ial Perfusion Imaging Adjunct Given 12/17/2022 9:46 AM CDT 0.4 mg tc-99m sestamibi unit dose injection 10.2 millicurie 10.2 millicurie, intravenous, Once in imaging, radiopharmaceutical, Starting on Thu12/17/22 at 0843, For 1 dose, Indications: Diagnostic RadiographyIndications:Valarie gnostic Radiography Given 12/17/2022 8:43 AM CDT 10.2 millicuries tc-99m sestamibi unit dose injection 33 millicurie 33 millicurie, intravenous, Once in imaging, radiopharmaceutical, Starting on Thu12/17/22 at 0946, For 1 dose, Indications: Diagnostic RadiographyIndications:Valarie gnostic Radiography Given 12/17/2022 9:47 AM CDT 33 millicuries documented in this encounter Care Teams Ip Technology Transactions Attorney Relationship Specialty Start Date End Date Enmanuel Gan MD [address] [place] [address] PCP - General Internal Medicine 04/26/20 Tg Houston MD [address] [facility] [address] [place] [address] Consulting Physician Cardiology 07/18/20 Guerrero Hunter DPT [address] [facility] [address] [place] [address] Physical Therapist Physical Therapy 11/08/20 Guerrero Weiner, [facility] [address] [facility] [address] [place] [address] Critical Care Transport Nurse Physical Therapy 12/12/20 documented as of this encounter
--- OUTSIDE RECORDS SUMMARY | 2024-07-12 08:46 | XMS_ITS | Encounter Summary ---
Author Organization [facility] Address [address] [facility] [address] [place] [address] Care Team Providers Care Hyperbaric Technician Name Role Phone Enmanuel Gan MD Primary Care Provider [phone] Tg Houston MD Unavailable [phone] Guerrero uHnter DPT Unavailable [phone] Guerrero Weiner ESTIMATOR PAPERBOARD BOXES Unavailable [phone] Encounter Details Date Type Department Care Team (Late st Contact Info) Description 07/16/[address] [facility] Cardiology [address] [facility] [address] [place] [address] Lucia Mcmahan NP [address] [facility] [address] [place] [address] Social History Tobacco Use Types [...] week 07/30/2020 How often do you attend [facility] or latter-day services? 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 She states she is doing a little better. She will keep appt on 08/08/[address] Tejeda. OFILM PROCESSOR * Telephone Encounter - Ivy Martin - 07/16/2022 2:38 PM CST ----- Message from Lucia Dennis NP sent at 07/16/2022 2:32 PM MICROFILM PROCESSOR ----- Please call patient and ask her how she is feeling. Her echocardiogram has been reviewed and showeda normal heart muscle pumping function without any significant valvular abnormalities. These are reassuring results. Will have her keep her scheduled follow-up with Dr. Tejeda in the next few weeks. OFILM PROCESSOR documented in this encounter Plan of Treatment Not on file documented as of this encounter Visit Diagnoses Not on filedocumented in this encounter Care Teams Hyperbaric Technician Relationship Specialty Start Date End Date Enmanuel Gan MD [address] INTER[address] MEDICINE [place], [place] [id number] PCP - General Internal Medicine 04/26/20 Tg Houston MD [address] [place] [address] Consulting Physician Cardiology 07/18/20 Guerrero Hunter DPT [address] [facility] [address] [facility] [place] [address] Physical Therapist Physical Therapy 11/08/20 Guerrero Weiner, ESTIMATOR PAPERBOARD BOXES [address] [facility] [address] [place] [address] [address] Physical Therapy 12/12/20 documented as of this encounter
--- OUTSIDE RECORDS SUMMARY | 2024-07-12 08:46 | XMS_ITS | Encounter Summary ---
Author Organization [facility] Address [address] [place] [address] Phone Care Team Providers Care Finished Hardware Erector Name Role Phone Enmanuel Gan MD Primary Care Provider [phone] Tg Houston MD Unavailable [phone] Guerrero Hunter DPT Unavailable [phone] Guerrero Weiner UNDERWATER HUNTER Unavailable [phone] Reason for Referral * Consultation (Routine) - Closed Specialty Diagnoses / Procedures Referred By Gigi orosco Referred To Contact Otolaryngology Diagnoses Sensorineural hearing loss (SNHL) of both ears Enmanuel Gan MD [address] [facility] [address] [facility] [address] [place] [address] Phone: tel: fax: [facility] (All Locations) Referral ID Status Reason Start Date Expiration Date V isits Requested Visits Authorized [id number] Closed Specialty Services Required 08/28/2022 09/27/2023 12 12 Question Answer Please select the performing region: [facility] (All Locations) [[id number]] # of visits: 1 ING INSPECTOR Reason for Visit * Reason Comments Hearing Loss * Consultation (Routine) - Closed Specialty Diagnoses / Procedures Referred By Gigi orosco Referred To Contact Otolaryngology Diagnoses Sensorineural hearing loss (SNHL) of both ears Enmanuel Gan MD [address] [place] [address] Phone: tel: fax: [facility] (All Locations) Referral ID Status Reason Start Date Expiration Date V isits Requested Visits Authorized [id number] Closed Specialty Services Required 08/28/2022 09/27/2023 12 12 Encounter Details Date Type Department Care Team (Latest Contact Info) Description 09/08/2022 11:20 AM PASTING INSPECTOR Office Visit [facility] Advanced Medicine ([facility]) - [facility] ENT [address] [facility] [address] [place] [address] [place] [address] Darshana Toth MD [address] [place] [address] Sensorineural hearing loss (SNHL) of both ears [...] How often do you attend chur or anglican services? 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 Gan. Chief Complaint: Chief Complaint Patient presents with Hearing Loss Interval: The patient returns for follow-up evaluation. She reports have done well since she was last evaluated. She is doing excellent with her left cochlear implant in right hearing aid. She denies any attacks of vertigo nausea or vomiting. She reports that she was read extending started on Lasix and is wondering if she can come off Dyazide. From previous: HPI: This is a 77 y.o. female who presents today for evaluation [...] Past Medical History: Diagnosis Date Allergic rhinitis Atrial fibrillation (CMS/HCC) (HCC) Auditory vertigo Meniere's disease Coronary artery disease HL (hearing loss) HLD (hyperlipidemia) Meniere's disease Microvascular angina (CMS/HCC) (HCC) Tinnitus Past Surgical History: Procedure Laterality Date BACK SURGERY 2017 lower back, 2018, 2018 CHOLECYSTECTOMY Cholecystectomy COCHLEAR IMPLANT Left 06/19/2020 IR INJECTION ARTHROGRAM SI JOINT BILATERAL WITH GUIDANCE Bilateral 02/15/2021 IR INJECTION ARTHROGRAM SI JOINT LEFT INCLUDES IMAGING GUIDANCE Left 09/06/2021 JOINT REPLACEMENT Hip replacement, L - 2013, R - 2014 - Nataliya OTHER SURGICAL HISTORY 1998 Sectioning of left vesibular nerve TOTAL HIP ARTHROPLASTY Bilateral 2014 VESTIBULAR NERVE [...] Current Outpatient Medications Medication Sig Dispense Refill ALPRAZolam (XANAX) 0.25 mg tablet Take 1 tablet (0.25 mg total) by mouth nightly as needed for anxiety 90 tablet 0 atorvastatin (LIPITOR) 20 mg tablet Take 20 mg by mouth nightly azelastine (ASTELIN) 137 mcg (0.1 %) nasal spray 1 spray 2 (two) times a day calcium acetate,phosphat bind, (PHOSLO) 667 mg capsule Take 1,334 mg by mouth every morning dilTIAZem XR (CARDIZEM CD,DILACOR XR) 180 mg 24 hr capsule Take 1 capsule (180 mg total) by mouth daily [address] (CYMBALTA) 30 mg capsule Take 90 mg by mouth every morning Eliquis 5 mg tablet Take 5 mg by mouth 2 (two) times a day [...] Take 1 tablet by mouth every morning montelukast (SINGULAIR) 10 mg tablet potassium chloride ER 20 mEq CR tablet Take 40 mEq by mouth every morning sucralfate (CARAFATE) 1 gram tablet Take 2 g by mouth 2 (two) times a day as needed traZODone (DESYREL) 50 mg tablet triamterene-hydroCHLOROthiazide 37.5-25 mg per capsule TAKE ONE CAPSULE BY MOUTH ONCE DAILY (Patient taking differently: Take 1 tablet/capsule by mouth every morning) 90 capsule 3 No current facility-administered medications for this visit. Allergies: Adhesive, Chlorhexidine, Sulfa (sulfonamide antibiotics), and Gabapentin, Immunizations: Immunization History Administered Date(s) Administered Influenza, Quadrivalent, High Dose, Preservative Free, Intrr 04/10/2020, 03/31/2021 Influenza, Trivalent, High Dose, Split, Preservative Free, Intramuscular 05/04/2018, 05/07/2019 Influenza, Trivalent, Intramuscular 05/03/2009, 04/26/2011, 05/04/2012, 05/13/2013, 05/05/2014, 05/16/2015, 05/25/2016, 04/15/2017, 05/04/2018, 05/03/2019 Influenza, Unspecified 03/27/2020 Moderna SARS-CoV-2 Vaccination (12+ YRS) 09/13/2020, 10/15/2020, 06/10/2021 Pneumococcal [...] used for improved visualization for diagnostic purposes. Otoscopic or microscopic visualization was used for clear magnified visualization and three-dimensional imaging of the ear for detection of any observable pathology or pathologic anatomic configuration and charaterization of same. Right External auditory canal: normal Tympanic [...] has done very well since cochlear implantation. She does have Meniere's like changes in the right ear but overall hearing has been stable and she is not had any recurrent vertigo attacks. I recommended consideration for coming off the Dyazide as a trial and to see if she has any symptom recurrence with this. Ultimately she does have progressive decline in hearing in the right ear I would recommend probably deferring cochlear implantation if she continues to do well with left ear given the history of left vestibular nerve section. Darshana Toth M.D. Otology and Neurotology Department of Otolaryngology [facility] [email or web address] Office: Clinic: ING INSPECTOR documented in this encounter Plan of Treatment Scheduled Referrals Name Type Priority Associated Diagnoses Order Schedule Ambulatory referral to ENT Outpatient Referral Routine Sensorineural hearing loss (SNHL) of both ears Expected: 09/11/2022 (Approximate), Expires: 08/28/2023 documented as of this encounter Visit Diagnoses Diagnosis Sensorineural hearing loss (SNHL) of both ears- Primary Meniere's disease of both ears documented in this encounter Care Teams Finished Hardware Erector Relationship Specialty Start Date End Date Enmanuel Gan MD [address] [facility] [address] [place] [address] PCP - General Internal Medicine 04/26/20 Tg Houston MD [address] [facility] [address] [place] [address] Consulting Physician Cardiology 07/18/20 Guerrero Hunter DPT [address] [facility] [address] [facility] [place] [address] Physical Therapist Physical Therapy 11/08/20 Guerrero Weiner, UNDERWATER HUNTER [address] [facility] [address] [place] [address] Rug Layer Physical Therapy 12/12/20 documented as of this encounter
--- OUTSIDE RECORDS SUMMARY | 2024-07-12 08:46 | XMS_ITS | Encounter Summary ---
Author Organization [facility] Address [address] [place] [address] Phone Care Team Providers Care Federal Law Clerk Name Role Phone Enmanuel Gan MD Primary Care Provider [phone] Tg Houston MD Unavailable [phone] Guerrero Hunter DPT Unavailable [phone] Guerrero Weiner TIGHT COOPER Unavailable [phone] Reason for Visit * Consultation (Routine) - Closed Specialty Diagnoses / Procedures Referred By Gigi t Referred To Contact Audiology Diagnoses Sensorineural hearing loss (SNHL) of both ears Enmanuel Gan MD [address] [facility] [address] [email or web address] [address] [place] [address] Phone: tel: fax: [facility] (All Locations) Referral ID Status Reason Start Date Expiration Date V isits Requested Visits Authorized [id number] Closed Specialty Services Required 08/09/2021 09/08/2023 99 99 Encounter Details Date Type Department Care Team (Latest Contact Info) Description 09/11/2022 1:00 PM BOOSTER ASSEMBLER Procedure visit [facility] Otolaryngology [address] [facility] [address] [place] [address] [place] [address] Tootie Gaspar Au.D. [address] [place] [address] Sensorineural hearing loss, bilateral (Primary Dx) Social History Tobacco Use Types [...] attend chur ch or restorationist services? Never 07/30/2020 Do you belong to any clubs o r organizations such as anabaptism groups, unions, fraternal or athletic groups, or [...] on file Legal Sex Female 9:09 PM BOOSTER ASSEMBLER Gender Identity Not on file Sexual Orientation Lesbian 05/24/2019 9: 06 AM CDT documented as of this encounter Procedure Notes * Tootie Gaspar Au.D. - 09/11/2022 1:00 PM CST Procedures Hearing Aid (Active) L/R/Bilateral right 07/15/22 1200 Make Resound 07/15/22 1200 Model Omnia ([id number]-HARP) 07/15/22 1200 Style YURI 07/15/22 1200 Right serial # [id number] 07/15/22 1200 Rechargeable Y 07/15/22 1200 Comment 1 OUTSIDE PROVIDER 07/15/22 1200 Cochlear Implant (Active) L/R/Bilateral left 07/08/20 1700 [employer]re [employer] Cochlear [employer] 07/08/20 1700 Processor 1 style Off-ear 07/15/22 0800 Processor 2 style Off-ear 07/15/22 1200 Processor Color dunlap/white 07/15/22 1200 Magnet Strength 3i 07/15/22 0800 Internal CI632 07/08/20 1700 External K2/K2 07/15/22 1200 Provider Navneet 07/08/20 1700 Date of CI surgery 06/19/20 07/08/20 1700 Date of IS 07/09/20 07/08/20 1700 MAPS in Speech Processor: Current settings:P1, 15 vol 6 and sens 12 P2: Map 14, map used prior to 24 mo eval Cell phone: yes Audio accessories: MM2 and 2 TV streamers SERVICES PROVIDED: 24 mo eval. 40 mins Evaluation of Auditory Function, Post-op Cochlear Implant (Time: 1:00-1:40 pm) and Subsequent Programming PROCEDURES: The patient attended the session with no one. The patient reported: Doing well with her CI. Still getting used to her COUCH Equipment: External equipment was visualized and all looked fine. The Kanso 2 sticks very well to her head. Reminded her to check her head regularly. Evaluation Testing was completed to assess the patient's detection of sound and speech understanding and to compare to previous testing. The right ear was plugged for all testing. ++ Patient was using program 1, map 14, volume 6 sensitivity 12. Sound field Thresholds 250 198 644 4490 1500 2000 3000 4000 6000 Hz CI 20 28 24 24 18 16 20 20 12 dB HL Previous results in () - last evaluation: CNC Words @ 60 dB SPL CI:LE List: 97 Word Total: 74% Phoneme Total: 90% AzBio Sentences @ 60 dB SPL CI:LE List: 28 Total: 96% AzBio Sentences @ 60 dB SPL +10 SNR [place] Babble CI:LE List: 30 Total: 83% CI+couch List: 31 Total: 47% +5 SNR Sound field thresholds were good and indicate good audibility for speech. The patient scored betteron words and sentences compared to previous tests.. Results of testing were discussed with the patient. Programming A head check was completed and no redness or irritation was seen at the magnet site. Programming was completed to optimize current map parameters and to ensure optimal settings. See Custom Sound software for details this date. Impedances were measured and were all okay and stable. Datalog information: ? hours use/per day. Patient's preferred map was opened: map 14. T levels were balanced and swept at 50% and rated as soft.C levels were balanced and swept and rated as medium. Some changes were made. When live the patient thought the new map sounded fine. Battery estimate: 20 This was saved as Map 15. The final programs were loaded as indicated above. The patient has 2 TV streamers. Both TV streamer were paired with her COUCH and her processor. The patient did not bring in her back up processor. I have personally spent the time documented above evaluating the auditory function post implant of this patient. This time does not include time spent on cochlear implant programming or reprogramming. The note as documented above reflects my personal service. RECOMMENDATIONS: Return for Annual evaluation or sooner if needed TER ASSEMBLER documented in this encounter Plan of Treatment Not on file documented as of this encounter Procedures Procedure Name Priority Date/Time Associated Diagnosis Comments AUDBASE RESULTS 09/11/2022 10:33 AM BOOSTER ASSEMBLER documented in this encounter Results * AUDBASE RESULTS (09/11/2022 10:33 AM BOOSTER ASSEMBLER) Provider Scanning AUDIOLOGY SERVICES ORDERABLES Final Result documented in this encounter Visit Diagnoses Diagnosis Sensorineural hearing loss, bilateral- Primary documented in this encounter Care Teams Federal Law Clerk Relationship Specialty Start Date End Date Kopjas, Enmanuel C., MD [address] [place] [address] PCP - General Internal Medicine 04/26/20 Tg Houston MD [address] [facility] [address] [place] [address] Consulting Physician Cardiology 07/18/20 Guerrero Hunter DPT [address] [facility] [address] [facility] [place] [address] Physical Therapist Physical Therapy 11/08/20 Guerrero Weiner, TIGHT COOPER [address] [facility] [address] [place] [address] Security Incident Response Specialist Physical Therapy 12/12/20 documented as of this encounter
--- OUTSIDE RECORDS SUMMARY | 2024-07-12 08:46 | XMS_ITS | Encounter Summary ---
Author Organization [facility] Address [address] [address] Care Team Providers Care Wind Tunnel Technician Name Role Phone Enmanuel Gan MD Primary Care Provider [phone] Tg Houston MD Unavailable [phone] Guerrero Hunter DPT Unavailable [phone] Guerrero Weiner REVENUE CYCLE ANALYST Unavailable [phone] Reason for Referral * Diagnostic Imaging (Routine) - Closed Specialty Diagnoses / Procedures Referred By Gigi orosco Referred To Contact Diagnoses Paroxysmal atrial fibrillation (CMS/HCC) (HCC) Microvascular angina (HCC) SNIDER (dyspnea on exertion) Procedures NM MPI SPECT (Rest and/or Stress) Multiple Studies Maninder Hobbs MD [address] [address] Phone: tel: fax: Referral ID Status Reason Start Date Expiration Date Visits Re quested Visits Authorized [id number] Closed 11/28/2022 12/28/2023 1 1 Reason for Visit * Reason Comments New Patient Congestive Heart Failure * Consultation (Routine) - Canceled Specialty Diagnoses / Procedures Referred By Gigi orosco Referred To Contact Cardiology Diagnoses Essential hypertension Atrial fibrillation, unspecified type (HCC) Enmanuel Gan MD [address] [place] [address] Phone: tel: fax: [facility] Cardiology [address] [facility] [address] [place] [address] Phone: tel: fax: Referral ID Status Reason Start Date Expiration Date Visits Requested Visits Authorized [id number] Canceled Specialty Services Required 10/09/2022 11/08/2023 1 1 Encounter Details Date Type Department Care Team (Latest Contact Info) Description 11/28/2022 12:00 PM CDT Office Visit [facility] Cardiology [address] [address] Maninder Hobbs MD [address] [place] [id number] Hypersomnolence (Primary Dx); Essential hypertension; Atrial fibrillation, unspecified type (HCC); Paroxysmal atrial fibrillation (CMS/HCC) (HCC); Apical variant hypertrophic cardiomyopathy (HCC); Microvascular angina (CMS/HCC) (HCC); SNIDER (dyspnea on exertion); Lipid screening Social History Tobacco Use Types Packs/Day Years [...] attend chur ch or moravian services? Never 07/30/2020 Do you belong to any clubs o r organizations such as adventist groups, unions, fraternal or athletic groups, or [...] on file Legal Sex Female 9:09 PM TERRITORY REPRESENTATIVE Gender Identity Not on file Sexual Orientation Lesbian 05/24/2019 9: 06 AM CDT documented as of this encounter Last Filed Vital Signs Vital Sign Reading Time Taken Comments Blood Pressure 108/62 11/28/2022 12:29 PM CDT Pulse 69 11/28/2022 12:29 PM CDT Temperature - - Respiratory Rate 15 11/28/2022 12:29 PM CDT Oxygen Saturation - - Inhaled Oxygen Concentration - - Weight 76.2 kg (168 lb) 11/28/2022 12:29 PM CDT Height 162.6 cm (5' 4 ) 11/28/2022 12:29 PM CDT Body Mass Index 28.84 11/28/2022 12:29 PM CDT documented in this encounter Progress Notes * Maninder Hobbs MD - 11/28/2022 12:00 PM CDT Images from the original note were not included. [facility]-Cardiology DATE OF VISIT: 11/28/2022 CHIEF COMPLAINT Chief Complaint Patient presents with ??? New Patient ??? Congestive Heart Failure HPI Citlaly Briseno is a 77 y.o. 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 Formally seen at [facility] and is here to establish care [...] In March 2021 she was hospitalized at [facility] again for shortness of breath, weakness, lightheadedness [...] is hypersomnolent. No bleeding issues, syncope, presyncope MEDICAL HISTORY Past Medical History: Diagnosis Date ??? Allergic rhinitis ??? Atrial fibrillation (CMS/HCC) (HCC) ??? Auditory vertigo Meniere's disease ??? Coronary artery disease ??? HL (hearing loss) ??? HLD (hyperlipidemia) ??? Meniere's disease ??? Microvascular angina (CMS/HCC) (HCC) ??? Tinnitus Social History Tobacco Use ??? [...] Hx MEDICATIONS Medication List Accurate as of November 28, 2022 1:14 PM. If you have any questions, ask [...] as: NORCO magnesium citrate 100 mg tablet potassium chloride ER 20 mEq CR tablet Commonly known as: KLOR-CON sucralfate 1 gram tablet Commonly known as: CARAFATE traZODone 50 mg tablet Commonly known as: DESYREL STOP taking these medications montelukast 10 mg tablet Commonly known as: SINGULAIR Stopped by: Maninder Hobbs MD triamterene-hydroCHLOROthiazide 37.5-25 mg per tablet/capsule Commonly known as: MAXZIDE,DYAZIDE Stopped by: Maninder Hobbs MD ALLERGIES Allergies Allergen Reactions ??? Adhesive Rash [...] for environmental allergies. PHYSICAL EXAM Blood pressure 108/62, pulse 69, resp. rate 15, height 162.6 cm (5' 4 ), weight 76.2 kg (168 lb). Body mass index is 28.84 kg/m??. Physical Exam Vitals reviewed. Constitutional: Appearance: [...] with the diagnosis of apical hypertrophic cardiomyopathy. ASSESSMENT Diagnoses and all orders for this visit: Hypersomnolence (Primary) - Portable/Home Sleep Study; Future Possibly sleep apnea related Essential hypertension - Ambulatory referral to Cardiology At [facility] Atrial fibrillation, unspecified type (HCC) - Ambulatory referral to Cardiology Paroxysmal atrial fibrillation (CMS/HCC) ([facility]) - Portable/Home Sleep Study; Future - NM MPI SPECT (Rest and/or Stress) Multiple Studies; Future On anticoagulation Apical variant hypertrophic cardiomyopathy (HCC) Seen in 2020 but no LVH was seen hour at least described in most recent echo in 2021 Microvascular angina (CMS/HCC) ([facility]) - NM MPI SPECT (Rest and/or Stress) Multiple Studies; Future SNIDER (dyspnea on exertion) - NM MPI SPECT (Rest and/or Stress) Multiple Studies; Future ? Etiology. Can not rule out angina. Other possibilities include age, deconditioning, pacemaker hysteresis issues, underlying lung disease, sleep apnea versus other PLAN/RECOMMENDATIONS 1. Personally reviewed and analyzed previous echo, MRI, stress test 2. EKG today 3. Home sleep study 4. Lexiscan myocardial perfusion study 5. Follow-up in 1 month or sooner as clinically indicated Maninder Hobbs MD, [facility] Copy of this note is sent electronically to Dr. Gan documented in this encounter Miscellaneous Notes * Addendum Note - Elvi Velasquez MA - 11/28/2022 12:00 PM CDTAddended by: ELVI VELASQUEZ on: 11/28/2022 02:05 PM Modules accepted: Orders * Addendum Note - Elvi Velasquez MA - 11/28/2022 12:00 PM CDTAddended by: ELVI VELASQUEZ on: 11/28/2022 03:20 PM Modules accepted: Orders documented in this encounter Plan of Treatment Not on file documented as of this encounter Procedures Procedure Name Priority Date/Time Associated Diagnosis Comments POCT LIPID PANEL Routine 11/28/2022 2:03 PM CDT Lipid screening ECG 12-LEAD Routine 11/28/2022 Essential hypertension Atrial fibrillation, unspecified type (HCC) documented in this encounter Results * NM MPI SPECT (Rest and/or Stress) Multiple Studies (12/17/2022 9:46 AM CDT) Anatomical Region Laterality Modality Body N/A Nuclear Medicine 12/17/2022 8:46 AM CDT Narrative 12/17/2022 4:27 PM CDT [facility] Cardiology [address] [facility] [address] [address] [facility] [address], [place] [address] P:[phone] P:[phone] MPI Imaging Report Patient Name: CITLALY BRISENO G : 1945 Study Date: 12/17/2022 8:46:34 AM Gender: F Tech: TIMOTHY MCCLELLANMT Location: [place] Ref.Provider: MANINDER HOBBS Height(Cm): 162.6 BSA: Weight(Kg): 76.2 BMI: 28.82Order Provider: MANINDER HOBBS - Physician: Referring Physician: Dr. Gan. HCG Physician: Ramos Hobbs M.D. Interpreting Physician: Yovani Hawthorne M.D. Stress Supervision: Edgardo Ramos M.D., .A.C.C. Procedures: Myocardial perfusion imaging with Tc99M Sestamibi [...] T wave abnormality. Recommend follow up with lifter driver. Nonspecific T-wave abnormality persisted after regadenoson injection. Correlate with MPI. Global left ventricular function is normal. Left ventricular ejection fraction is 59 %. Myocardial perfusion imaging is normal. Electronically Signed By: Edgardo Ramos MD, [facility] 2022-12-17 13:01:50 CDT Electronically Signed By: Yovani Hawthorne MD 2022-12-17 16:27:49 CDT CC: CC: Procedure Note Frankie Hawthorne MD - 12/17/2022 [facility] Cardiology [address] [facility] [address], [place] [address] [facility] [address], [place] [address] P:[phone] P:[phone] MPI Imaging Report Patient Name: CITLALY BRISENO GPatient ID: [id number] : [id number] Date: 12/17/2022 8:46:34 AM Gender: FAccession #: [id number] Tech: , CNMTLocation: [place] Ref.Provider: James HOBBSight(Cm): 162.6 BSA: Weight(Kg): 76.2 BMI: 28.82Order Provider: MANINDER HOBBS - Physician: Referring Physician: Dr. Gan. HCG Physician: Ramos Hobbs M.D.Interpreting Physician: Yovani Hawthorne M.D. Stress Supervision: [...] T wave abnormality. Recommend follow up with lifter driver. Nonspecific T-wave abnormality persisted after regadenoson injection.Correlate with MPI. Global left ventricular function is normal. Left ventricular ejectionfraction is 59 %. Myocardial perfusion imaging is normal. Electronically Signed By: Edgardo Ramos MD, [facility] 2022-12-17 13:01:50 CDT Electronically Signed By: Yovani Hawthorne MD 2022-12-17 16:27:49 CDT CC: CC: Maninder Hobbs MD IMG NM PROCEDURES Final R esult * POCT lipid panel (11/28/2022 2:03 PM CDT) Cholesterol, POC 151 mg/dL HDL, POC 74 mg/dL Triglycerides, POC 140 mg/dL LDL Cholesterol POC 48 mg/dL Chol/HDL Ratio, POC 2.0 Non-HDL Cholesterol, POC 76 mg/dL Cholesterol Total, POC 151 mg/dL Capillary blood 11/28/2022 2 :03 PM CDT us Maninder Hobbs MD POINT OF CARE TEST ORDERA BLES Final Result * ECG 12 lead (11/28/2022) us Maninder Hobbs MD ECG ORDERABLES Final Res ult documented in this encounter Visit Diagnoses Diagnosis Hypersomnolence- Primary Hypersomnia, unspecified Essential hypertension Unspecified essential hypertension Atrial fibrillation, unspecified type (HCC) Paroxysmal atrial fibrillation (CMS/HCC) (HCC) Atrial fibrillation Apical variant hypertrophic cardiomyopathy (HCC) Microvascular angina (HCC) SNIDER (dyspnea on exertion) Other dyspnea and respiratory abnormality Lipid screening Screening for lipoid disorders Paroxysmal atrial fibrillation (CMS/HCC) (HCC) Atrial fibrillation Microvascular angina (HCC) SNIDER (dyspnea on exertion) Other dyspnea and respiratory abnormality documented in this encounter Discontinued Medications Medication Sig Discontinue Reason Start Date End Da te montelukast (SINGULAIR) 10 mg tablet 02/19/2022 11/28/2022 triamterene-hydroCHLOROt hiazide 37.5-25 mg per capsule TAKE ONE CAPSULE BY MOUTH ONCE DAILY 11/17/2019 11/28/2022 documented as of this encounter Historical Medications * This list may reflect changes made after this encounter. cefuroxime (CEFTIN) 500 mg tablet Take 1 tablet (500 mg total) by mouth every 12 (twelve) hours 10/30/2022 03/24/2023 added in this encounter Orders Outpatient Referral Count Last Ordered Date Fir st Ordered Date AMB REFERRAL TO CARDIOLOGY 1 11/28/2022 documented in this encounter Care Teams Wind Tunnel Technician Relationship Specialty Start Date End Date Enmanuel Gan MD [address] [facility] [address] [place] [address] PCP - General Internal Medicine 04/26/20 Tg Houston MD [address] [place] [address] Consulting Physician Cardiology 07/18/20 Guerrero Hunter DPT [address] [facility] [address] [address] Physical Therapist Physical Therapy 11/08/20 Guerrero Weiner PTA [id number] [place] [address] Electric Motor Analyst Physical Therapy 12/12/20 documented as of this encounter
--- OUTSIDE RECORDS SUMMARY | 2024-07-12 08:46 | XMS_ITS | Encounter Summary ---
Author Organization [facility] Address [address] [place] [address] Phone Care Team Providers Care Director Executive Communications Name Role Phone Enmanuel Gan MD Primary Care Provider [phone] Tg Houston MD Unavailable [phone] Guerrero Hunter DPT Unavailable [phone] Guerrero Weiner RECORD TABULATING CLERK Unavailable [phone] Reason for Visit * Reason Comments Pain Encounter Details Date Type Department Care Team (Latest Contact Info) Description 07/09/2022 1:40 PM BONE PROCESS OPERATOR Office Visit [facility] Orthopaedic Surgery [address] [place] [address] Medical Office Building [address] [place] [phone] Gagan An MD [address] [place] [address] [address] [place] [address] History of bilateral total hip arthroplasty (Primary Dx); Hip pain, bilateral Social History Tobacco Use Types Packs/Day Years [...] on file Legal Sex Female 9:09 PM BONE PROCESS OPERATOR Gender Identity Not on file Sexual Orientation Lesbian 05/24/2019 9: 06 AM CDT documented as of this encounter Progress Notes * Gagan An MD - 07/09/2022 1:40 PM CST Images from the original note were not included. RETURN PATIENT VISIT INTERIM HISTORY: Macie Briseno is status post right total hip replacement performed in 2014. She had some issues with instability recently (2 dislocations in April). She has been somewhat compliant with brace wear. She has had no issues with instability since her last visit in clinic. Patient seen today for routine follow up and is doing well. PHYSICAL EXAM: Height: Weight: BMI: There is no height or weight on file to calculate BMI. Right Hip Hip Pain is noted: None Skin Status: Previous incision healed Trendelenberg: Negative Range of Motion: Start of flexion: 0 End of flexion: 90 Abduction: 20 Adduction: 15 ERE: 15 IGLESIA: 10 Deformity: No deformity noted Abductor Strength: 4/5 REVIEW OF XRAYS/STUDIES: Radiographs ordered and reviewed. Shows components are well positioned without any signs of loosening or failure. DX: Macie Briseno is a 76 y.o. female status post right total hip replacement. TREATMENT PLAN: 1. The patient has been full weight bearing. 2. Encourage exercises to strengthen core and hip muscles. 3. Will prescribe PT for BL hips FOLLOW UP: As long as the patient continues to do well then follow up for routine surveillance visits with ourNurse Practitioner/Physician Master Planner to monitor radiograph images. Patient is welcome to come back and see me if there are any issues or problems. Eddie Easton M.D. Clinical Fellow, Department of Orthopaedic Surgery Division of Joint Preservation, Resurfacing, and Replacement ATTENDING ATTESTATION I was present for the critical portion of the history, physical examination and participated in theradiographic review and medical decision making on this patient. I agree with the findings in the report of the above resident/fellow dictating using Crystalsol Direct software. Gagan An MD PROCESS OPERATOR documented in this encounter Plan of Treatment Not on file documented as of this encounter Visit Diagnoses Diagnosis History of bilateral total hip arthroplasty- Primary Hip pain, bilateral Pain in joint, pelvic region and thigh documented in this encounter Care Teams Director Executive Communications Relationship Specialty Start Date End Date Enmanuel Gan MD [address] [place] [address] PCP - General Internal Medicine 04/26/20 Tg Houston MD [address] [place] [address] Consulting Physician Cardiology 07/18/20 Guerrero Hunter, [place] [address] [facility] [address] [place] [address] Physical Therapist Physical Therapy 11/08/20 Guerrero Weiner, ELIAN [address] [facility] [address] [place] [address] Sales Solutions Representative Physical Therapy 12/12/20 documented as of this encounter
--- OUTSIDE RECORDS SUMMARY | 2024-07-12 08:46 | XMS_ITS | Encounter Summary ---
Author Organization [facility] Address [address] [place] [address] Phone Care Team Providers Care Senior Compensation Consultant Name Role Phone Enmanuel Gan MD Primary Care Provider [phone] Tg Houston MD Unavailable [phone] Guerrero Hunter DPT Unavailable [phone] Guerrero Weiner CHAIN DYER Unavailable [phone] Reason for Visit * Consultation (Routine) - Closed Specialty Diagnoses / Procedures Referred By Contac t Referred To Contact Audiology Diagnoses Sensorineural hearing loss, bilateral Enmanuel Gan MD [address] [facility] [address] [place] [address] Phone: tel: fax: [facility] (All Locations) Referral ID Status Reason Start Date Expiration Date V isits Requested Visits Authorized [id number] Closed Specialty Services Required 01/30/2021 2022 99 99 Encounter Details Date Type Department Care Team (Latest Contact Info) Description 07/15/2022 10:30 AM INTEL RECRUITER Procedure visit [facility] Otolaryngology [address] [facility] 11th [place] [address] [place] [address] Norma Oliveira Au.D. [address] [place] [address] Sensorineural hearing loss, bilateral (Primary Dx) Social [...] on file Legal Sex Female 9:09 PM INTEL RECRUITER Gender Identity Not on file Sexual Orientation Lesbian 05/24/2019 9: 06 AM CDT documented as of this encounter Procedure Notes * Norma Oliveira Au.D. - 07/15/2022 10:30 AM CST Procedures Hearing Aid (Active) L/R/Bilateral right Make Resound Model Omnia ([id number]-UBTU) Style YURI Right serial # [id number] Rechargeable Y Comment 1 OUTSIDE PROVIDER Cochlear Implant (Active) L/R/Bilateral left Cloth Bin Packer Cochlear [employer] Processor 1 style Off-ear Processor 2 style Off-ear Processor Color dunlap/white Magnet Strength 3i Internal CI632 External K2/K2 Provider Navneet Date of CI surgery 06/19/20 Date of IS 07/09/20 MAPS in Processor: ALLEGRA, 1200 Hz, SCAN+all IP P1: Map 13 Cell phone: Gizmoz - apps downloaded, streaming activated Current default settings: V6, S12 Audio Accessories Ch. 1: TV streamer Ch. 2: TV streamer Ch. 3: MM2+ SERVICES PROVIDED: Hearing Aid Linking and Accessory Pairing PROCEDURES: The patient attended the session alone. She reported: - recently fit on 06/17/2022 with a ReSound Omnia 61 YURI hearing aid in the right ear - hearing ok with COUCH; it's different - has too many options CustomSound software was opened. Hearing aid was linked within the software. This was saved and written to the primary and back-up processors. Hearing aid was paired and streaming was activated via the [employer] 3D virgilio. Primary K2 was paired and streaming activated through the [employer] Smart virgilio. A phone call was made - patient confirmed streaming of speech to both devices. Patient brought her MM2+ to be paired but not her two TV streamers. MM2+ was paired to both devicesin ch. 3. Patient was shown how to turn on the MM2+ and how to activate streaming within the respective apps. She was reminded to bring her TV streamers to her next appointment to be paired. Per patient request, message notifications were silenced so she did not hear a ding in her ear with each incoming notification. Patient was reviewed on [facility]'s hearing aid policy $60/15 minutes if checked at [facility] outside of annual evaluations. The note as documented above reflects my personal service. RECOMMENDATIONS: Return for 24 Month evaluation scheduled 08/26/2022 or sooner if needed Follow up with audiology regarding annual hearing evaluations and HAC L RECRUITER documented in this encounter Plan of Treatment Not on file documented as of this encounter Visit Diagnoses Diagnosis Sensorineural hearing loss, bilateral- Primary documented in this encounter Care Teams Senior Compensation Consultant Relationship Specialty Start Date End Date Enmanuel Gan MD [address] [facility] [address] [place] [address] PCP - General Internal Medicine 04/26/20 Tg Houston MD [address] [facility] [address] [place] [address] Consulting Physician Cardiology 07/18/20 Guerrero Hunter DPT [address] [facility] [address] [facility] [place] [address] Physical Therapist Physical Therapy 11/08/20 Guerrero Weiner PTA [id number] [place] [address] Retail Planning Manager Physical Therapy 12/12/20 documented as of this encounter
--- OUTSIDE RECORDS SUMMARY | 2024-07-12 08:46 | XMS_ITS | Encounter Summary ---
Author Organization [facility] Address [address] [place] [address] Phone Care Team Providers Care Account Review Specialist Name Role Phone Enmanuel Gan MD Primary Care Provider Tg Houston MD Unavailable [phone] Guerrero Hunter DPT Unavailable [phone] Guerrero Weiner SCRUFF WORKER Unavailable [phone] Encounter Details Date Type Department Care Team (Late st Contact Info) Description 07/22/2022 Orders Only [facility] Orthopaedic Surgery [address] [facility] Advanced Medicine 6th [place] [address] [place] [phone] Jeremy Michelle MD [address] [facility] [place] [address] Alteration in nutrition (Primary Dx); Vitamin D deficiency Social History Tobacco Use [...] attend chur ch or methodist services? Never 07/30/2020 Do you belong to [...] on file Legal Sex Female 9:09 PM OUTSIDE SALES PROFESSIONAL Gender Identity Not on file Sexual Orientation Lesbian 05/24/2019 9: 06 AM CDT documented as of this encounter Plan of Treatment Not on file documented as of this encounter Visit Diagnoses Diagnosis Alteration in nutrition- Primary Vitamin D deficiency documented in this encounter Care Teams Account Review Specialist Relationship Specialty Start Date End Date Enmanuel Gan MD [address] [place] [address] PCP - General Internal Medicine 04/26/20 Tg Houston MD [address] [place] [address] Consulting Physician Cardiology 07/18/20 Guerrero Hunter DPT [address] [facility] [address] [facility] [place] [address] Physical Therapist Physical Therapy 11/08/20 Guerrero Weiner, SCRUFF WORKER [address] [place] [address] Assembler Musical Instruments Physical Therapy 12/12/20 documented as of this encounter
--- OUTSIDE RECORDS SUMMARY | 2024-07-12 08:46 | XMS_ITS | Encounter Summary ---
Author Organization [facility] Address [address] [place] [address] Phone Care Team Providers Care Receiving Distribution Station Operator Name Role Phone Enmanuel Gan MD Primary Care Provider [phone] Tg Houston MD Unavailable [phone] Guerrero Hunter DPT Unavailable [phone] Guerrero Weiner CLIENT SUPPORT COORDINATOR Unavailable [phone] Reason for Visit * Reason Comments Audiometric Evaluation * Consultation (Routine) - Closed Specialty Diagnoses / Procedures Referred By Contac t Referred To Contact Audiology Diagnoses Sensorineural hearing loss (SNHL) of both ears Enmanuel Gan MD [address] [facility] [address] [facility] [address] [place] [address] Phone: tel: fax: [facility] (All Locations) Referral ID Status Reason Start Date Expiration Date V isits Requested Visits Authorized [id number] Closed Specialty Services Required 08/09/2021 09/08/2023 99 99 Encounter Details Date Type Department Care Team (Late st Contact Info) Description 09/11/2022 10:45 AM LEARNING SUPPORT ASSISTANT Procedure visit [facility] Otolaryngology [address] [facility] 11th [place] [address] [place] [address] Iwona Davis Au.D. [address] [facility] [address] [place] [address] SNHL (sensory-neural hearing loss), asymmetrical (Primary Dx) Social History Tobacco Use Types [...] often do you attend chur ch or zoroastrian services? Never 07/30/2020 Do you belong to [...] file Legal Sex Female 9:09 PM LEARNING SUPPORT ASSISTANT Gender Identity Not on file Sexual Orientation Lesbian 05/24/2019 9: 06 AM CDT documented as of this encounter Procedure Notes * Iwona Herron Au.D. - 09/11/2022 10:45 AM CST Procedures Digna Rapp PATIENT: Macie Briseno : 1945 TYPE OF SERVICE: Comprehensive Audiologic Evaluation DATE OF SERVICE: 09/11/2022 REFERRAL SOURCE: Enmanuel Gan MD PATIENT REPORTS: Ms. Briseno reports no significant changes in hearing or new otologic symptoms since her previous evaluation in 2021. She was able to purchase a ReSound ONE hearing aid with her [facility] Hearing benefit atan outside clinic. She states she has been doing well with her new hearing aid, sound is just different and she is still adjusting. TESTS PERFORMED: See: comprehensive audiometric examination - R ear only ASSESSMENT: Pure tone audiometry was performed and revealed: R ear - Moderate sensorineural hearing loss at 250 Hz sloping to a moderately- severe to severe lossat 500 to 8000 Hz L ear - DNT as patient has a cochlear implant Speech recognition thresholds test was performed and revealed: R ear - moderately-severe loss in the ability to receive speech L ear - DNT as patient has a cochlear implant Word recognition testing was performed at [facility] using recorded version of NU-6 lists of a male speaker: R ear - moderate difficulty in the ability to recognize speech L ear - DNT as patient has a cochlear implant Changes since previous evaluation on 08/22/2021: R ear - 10 dB decline at 3000 Hz The results were reviewed with the patient and any questions were answered. Patient was provided a copy of today's audiometric evaluation. PLAN/RECOMMENDATIONS: As per Dr. Toth Retest 12 months/PRN Continue use of right hearing aid/follow-up with dispensing provider Continue use of left cochlear implant/follow-up with CI team Hearing assistive technology Hearing protection in noise NING SUPPORT ASSISTANT documented in this encounter Plan of Treatment Not on file documented as of this encounter Visit Diagnoses Diagnosis SNHL (sensory-neural hearing loss), asymmetrical- Primary Sensorineural hearing loss, asymmetrical documented in this encounter Care Teams Receiving Distribution Station Operator Relationship Specialty Start Date End Date Enmanuel Gan MD [address] [place] [address] PCP - General Internal Medicine 04/26/20 Tg Houston MD [address] [facility] [address] [place] [address] Consulting Physician Cardiology 07/18/20 Guerrero Hunter DPT [address] [facility] [address] [facility] [place] [address] Physical Therapist Physical Therapy 11/08/20 Guerrero Weiner, [facility] [address] [place], [place] [id number] Senior Escrow Officer Physical Therapy 12/12/20 documented as of this encounter
--- OUTSIDE RECORDS SUMMARY | 2024-07-12 08:46 | XMS_ITS | Encounter Summary ---
Author Organization [facility] Address [address] [facility] [address] [place] [address] Care Team Providers Care Photography Coordinator Name Role Phone Enmanuel Gan MD Primary Care Provider [phone] Tg Houston MD Unavailable [phone] Guerrero Hunter DPT Unavailable [phone] Guerrero Weiner SERVICE COORDINATOR [facility] Unavailable [phone] Reason for Visit * Reason Comments Microvascular angina Encounter Details Date Type Department Care Team (Latest Contact Info) Description 08/08/2022 12:45 PM QUILT SEWER Office Visit [facility] Cardiology [address] [facility] [address] [place] [address] Cam Tejeda MD [address] [place] [address] [address] [place] [address] Acute on chronic diastolic heart failure (CMS/HCC) (HCC) (Primary Dx); Microvascular angina (CMS/HCC) (HCC); Apical variant hypertrophic cardiomyopathy (CMS/HCC) (HCC); Paroxysmal atrial fibrillation (CMS/HCC) (HCC); AV block, 2nd degree; ICD (implantable cardioverter-defibrilla tor), dual, in situ Social History Tobacco Use [...] on file Legal Sex Female 9:09 PM QUILT SEWER Gender Identity Not on file Sexual Orientation Lesbian 05/24/2019 9: 06 AM CDT documented as of this encounter Last Filed Vital Signs Vital Sign Reading Time Taken Comments Blood Pressure 134/72 08/08/2022 12:48 PM QUILT SEWER Pulse 75 08/08/2022 12:48 PM QUILT SEWER Temperature - - Respiratory Rate - - Oxygen Saturation - - Inhaled Oxygen Concentration - - Weight 76.7 kg (169 lb) 08/08/2022 12:48 PM QUILT SEWER Height 162.6 cm (5' 4 ) 08/08/2022 12:48 PM QUILT SEWER Body Mass Index 29.01 08/08/2022 12:48 PM QUILT SEWER documented in this encounter Progress Notes * Cam Tejeda MD - 08/08/2022 12:45 PM CST Images from the original note were not included. [facility] Cardiology [address] [facility] [place], [place], [address] [facility] [facility] [address], [place] [address] Cardiology Electrophysiology Bg Zapata, MD Bar Welch,, MD Negro Arrieta, MD Alfonso Daugherty, MD Guerrero South, MD Ashvin Recio, MD Jose L Lomeli, DO Rg Cummings, MD Clara Thakkar, DRUG AND ALCOHOL TREATMENT SPECIALIST Yannick Mancilla, MD Isidro Perez, MD Saw Benitez, MD Mac Ashraf, DO Cam Tejeda, MD Lucia Dennis, DRUG AND ALCOHOL TREATMENT SPECIALIST Elizabeth Turpin, DRUG AND ALCOHOL TREATMENT SPECIALIST Patient Name: Macie Briseno Provider: Cam Tejeda MD : 1945 Date of Service: 08/08/2022 Referring: Elvia CHIEF COMPLAINT: Microvascular angina HISTORY OF PRESENT ILLNESS: 77 y.o. female here for follow-up history of microvascular angina, hypertension, and dyslipidemia. She has been managed with calcium channel nayana therapy. In June 2020 she was found to have paroxysmal atrial fibrillation during hospitalization for prolonged chest discomfort which was different from her usual microvascular angina and was associated with mild troponin elevation. An echocardiogram and Lexiscan study were unremarkable, and her diagnosis was unclear until her symptoms recurred on the day of anticipated discharge in corresponded withatrial fibrillation. She was anticoagulated and started on flecainide and has had no further episodes She was hospitalized at [facility] from 03/28/21-03/29/21 after having developed exertional shortness of breath, weakness, lightheadedness, and sweating in mid February leading to a hospitalization at [place] during which she was noted to be in sinus rhythm with a right bundle branch block and Mobitz two second-degree AV block. A Lexiscan study was nonischemic. No cause of her symptoms was identified. On my review of that information I had concern that she had alternating left bundle branch block (01/14/2021 close) and right bundle branch block with second-degree AV block in may have been having high-grade AV block as the cause of her symptoms. She was seen in consultation by Dr. Recio on03/29/2021, who felt that a pacemaker was indicated but not emergent as she was not having any high-grade AV block. An echocardiogram on 03/29/2021 was consistent with apical hypertrophy, confirmed with a cardiac MR. she did receive an ICD on 06/05/2021. She is had several episodes of periodic chest pain and shortness of November 2021 --> unremarkable workup with hyperdynamic echo, with apical Hypertrophic cardiomyopathy at that time I recommended her afterload reduction and increasing her rate control thinking that some of her symptoms could have been due to dynamic LV Interval History Had another visit recently with Lucia about 1 month ago for shortness of breath Her device checks continues to show a very low AFib burden She seems to responding well to low-dose furosemide which was started Symptoms of shortness of breath has improved She had some lower extremity edema that she reported which has also gone down She denies any chest pain symptoms I reviewed this patient's Allergies and Current Medication List and updated as needed in the medical record. I reviewed this patient's Past Medical History, Social History, and Family History and updated as needed in the medical record. MEDICATIONS: Outpatient Encounter Medications as of 08/08/2022 Medication Sig Dispense Refill ALPRAZolam (XANAX) 0.25 [...] mouth every morning) 90 capsule 3 No facility-administered encounter medications on file as of 08/08/2022. CARDIAC HISTORY: REVIEW OF SYSTEMS Pertinent review of systems negative unless otherwise stated in HPI above. PHYSICAL EXAM: BP 134/72 Pulse 75 Ht 162.6 cm (5' 4 ) Wt 76.7 kg (169 lb) BMI 29.01 kg/m?? General: No apparent distress. Eyes: Sclerae anicteric. Neck: No obvious jugular venous distension seen. Respiratory: No respiratory distress,breathing comfortably no accessory muscle use Musculoskeletal: Grossly normal tone throughout. Neurologic: Grossly nonfocal. No dysarthria. Skin: No rashes seen. Psychiatric: Appropriate affect and interaction. MDM Problems Addressed: ICD-9-CM ICD-10-CM 1. Acute on chronic diastolic heart failure (CMS/HCC) ([facility]) 428.33 I50.33 2. Microvascular angina (CMS/HCC) ([facility]) 413.9 I20.8 3. Apical variant hypertrophic cardiomyopathy (CMS/HCC) ([facility]) 425.18 I42.2 4. Paroxysmal atrial fibrillation (CMS/HCC) ([facility]) 427.31 I48.0 5. AV block, 2nd degree 426.13 I44.1 6. ICD (implantable cardioverter-defibrillator), dual, in situ V45.02 Z95.810 Data Reviewed: - current antihypertensive regimen - continue current dose of furosemide 20 mg daily - has a further shortness of breath I asked her to call can increase to 40 mg daily with ASSESSMENT & PLAN DISCUSSION Acute on chronic diastolic heart failure (CMS/HCC) ([facility]) - symptoms of dyspnea on exertion - stable echocardiogram - had some lower extremity edema, and was started on empiric diuretics furosemide 20 mg daily by Lucia - she has responded well to this symptoms appear well controlled not completely gone but definitelyimproved - spent the entirety of the visit discussing pathophysiology of diastolic dysfunction/heart failureand plans for management - current antihypertensive regimen - continue current dose of furosemide 20 mg daily - has a further shortness of breath I asked her to call can increase to 40 mg daily with Microvascular angina (CMS/HCC) ([facility]) (Primary) - previously had microvascular angina - having some more dyspnea on exertion - does not necessarily feel like her previous microvascular angina - this seems to be well controlled will continue current regimen diltiazem 180 mg daily Apical variant hypertrophic cardiomyopathy (CMS/HCC) ([facility]) - notable apical hypertrophic variant - has primary preventative ICD in place - very hyperdynamic LV - though no LVOT obstruction - continue managing with diltiazem Paroxysmal atrial fibrillation (CMS/HCC) ([facility]) - low AFib burden on ICD checks AV block, 2nd degree ICD (implantable cardioverter-defibrillator) in place - follow-up by Dr. Recio - continues to have very low pacing in AFib burden - no discharges Cam Tejeda MD [facility] Crayon Grader This note was dictated in part using [employer] voice recognition software. Despite careful review of this note, variances in spelling and vocabulary are possible and unintentional. T SEWER documented in this encounter Plan of Treatment Not on file documented as of this encounter Visit Diagnoses Diagnosis Acute on chronic diastolic heart failure (CMS/HCC) (HCC)- Primary Acute on chronic diastolic heart failure Microvascular angina (HCC) Apical variant hypertrophic cardiomyopathy (HCC) Paroxysmal atrial fibrillation (CMS/HCC) (HCC) Atrial fibrillation AV block, 2nd degree Other second degree atrioventricular block ICD (implantable cardioverter-defibrillator), dual, in situ documented in this encounter Care Teams Photography Coordinator Relationship Specialty Start Date End Date Enmanuel Gan MD [address] [place] [address] PCP - General Internal Medicine 04/26/20 Tg Houston MD [address] [facility] [address] [place] [address] Consulting Physician Cardiology 07/18/20 Guerrero Hunter DPT [address] [facility] [address] [facility] [place], [place] [id number] Physical Therapist Physical Therapy 11/08/20 Guerrero Weiner, SERVICE COORDINATOR [facility] [address] [facility] [address] [place] [address] Clinical Scientist Physical Therapy 12/12/20 documented as of this encounter
--- OUTSIDE RECORDS SUMMARY | 2024-07-12 08:46 | XMS_ITS | Encounter Summary ---
Author Organization [facility] Address [address] [facility] [address] [place] [address] Care Team Providers Care Roadability Machine Operator Name Role Phone Enmanuel Gan MD Primary Care Provider [phone] Tg Houston MD Unavailable [phone] Guerrero Hunter DPT Unavailable [phone] Guerrero Weiner BOX BLANK MACHINE OPERATOR Unavailable [phone] Reason for Visit * Cardiology (Routine) - Closed Specialty Diagnoses / Procedures Referred By Contac t Referred To Contact Diagnoses NICM (nonischemic cardiomyopathy) (CMS/HCC) (HCC) Procedures DEVICE CHECK - REMOTE Ashvin Recio III, MD Phone: tel: fax: [facility] Referral ID Status Reason Start Date Expiration Date Visits Re quested Visits Authorized [id number] Closed 06/06/2021 07/06/2022 1 1 Encounter Details Date Type Department Care Team (Latest Contact Info) Description 10/24/2022 7:00 AM CDT Ancillary Procedure Arr[facility]ia Center [address] [facility] [address], [place] [address] NICM (nonischemic cardiomyopathy) (CMS/HCC) (HCC); [...] often do you attend chur ch or oriental orthodox services? Never 07/30/2020 Do you belong to [...] on file Legal Sex Female 9:09 PM CRUDE UNIT OPERATOR Gender Identity Not on file Sexual Orientation Lesbian 05/24/2019 9: 06 AM CDT documented as of this encounter Plan of Treatment Not on file documented as of this encounter Procedures Procedure Name Priority Date/Time Associated Diagnosis Comments DEVICE CHECK - REMOTE Routine 10/24/2022 12:38 PM CDT NICM (nonischemic cardiomyopathy) (CMS/HCC) (HCC) documented in this encounter Results * DEVICE CHECK - REMOTE (10/24/2022 12:38 PM CDT) Anatomical Region Laterality Modality Other Narrative 11/06/2022 8:37 PM CDT Table formatting from the original result was not included. ICD CHECK (REMOTE) Patient ID: Macie Briseno is a 77 y.o. female This patient received a [employer] scientific ICD. ??They had a remote transmission on 10/24/2022. Device implant indications: ??Nonischemic cardiomyopathy ?? Interrogation of the patient's device demonstrates the following: Presenting EGM: ??A sense V sense @ 75 bpm Original Device Settings Right Atrium Right Ventricle Sensitivity (mV) 0.25 mV 0.60 mV Pacing Outputs 2.5 V @ 0.4 ms 2.5 V @ 0.40 ms ?? Testing Measurements Right Atrium Right Ventricle Sensitivity (mV) 7.2 mV >25.0 mV Impedence (Ohms) 528 ohms 431 ohms High Voltage Impedence ??66 ohms Pace Threshold Not done V @ ??ms Not done V @ ??ms Pacing % 5 % 0 % Battery Status: ??10.5 years to YURIDIA with Charge Time 9.8 seconds Episodes last 90 days/Comments: AF [place] 0% 3 stored SVT episodes NORMAL DEVICE FUNCTION PROGRAMMED Medications: Anti-coagulant(s): ??Eliquis 5 mg twice daily Anti-arrhythmic(s): ??Cardizem 180 mg PLAN: 1) normal [employer] scientific ICD evaluation. 2) [employer] scientific remote transmission scheduled in 3 months. 3) Programming appropriate for device measurements Latisha Self RN Ashvin Recio III, MD CV CARDIAC SERVICES PROCEDURES Final Result documented in this encounter Visit Diagnoses Diagnosis NICM (nonischemic cardiomyopathy) (CMS/HCC) (HCC) ICD (implantable cardioverter-defibrillator), dual, in situ documented in this encounter Care Teams Roadability Machine Operator Relationship Specialty Start Date End Date Enmanuel Gan MD [address] [facility] [address] [place] [address] PCP - General Internal Medicine 04/26/20 Tg Houston MD [address] [facility] [address] [place] [address] Consulting Physician Cardiology 07/18/20 Guerrero Hunter DPT [address] [facility] [address] [address] Physical Therapist Physical Therapy 11/08/20 Guerrero Weiner PTA [address] [place] [address] Order Takers Supervisor Physical Therapy 12/12/20 documented as of this encounter
--- OUTSIDE RECORDS SUMMARY | 2024-07-12 08:46 | XMS_ITS | Encounter Summary ---
Author Organization [facility] Address [address] [address] Care Team Providers Care Section Repairer Name Role Phone Enmanuel Gan MD Primary Care Provider Tg Houston MD Unavailable [phone] Guerrero Hunter DPT Unavailable [phone] Guerrero Weiner FRACTIONATION SUPERVISOR Unavailable [phone] Encounter Details Date Type Department Care Team (Late st Contact Info) Description 12/10/2022 Telephone [facility] Cardiology [address] [address] Jeremy Hobbs MD [address] [place] [address] Social History Tobacco Use Types Packs/Day [...] week 07/30/2020 How often do you attend up health system or anglican services? Never 07/30/2020 Do you [...] Legal Sex Female 9:09 PM OIL DISTRIBUTOR Gender Identity Not on file Sexual Orientation Lesbian 05/24/2019 9: 06 AM CDT documented as of this encounter Miscellaneous Notes * Telephone Encounter - Carolann Dill RN - 12/10/2022 2:36 PM CDT Called [facility] to check on status of home sleep study. Spoke w/ Keri. They have no recorder of order. Auth info sent to Rk. Michael Jung at [facility], order will need faxed once auth obtained. Fax to [phone] documented in this encounter Plan of Treatment Not on file documented as of this encounter Visit Diagnoses Not on filedocumented in this encounter Care Teams Section Repairer Relationship Specialty Start Date End Date Enmanuel Gan MD [address] [facility] [address] [place] [address] PCP - General Internal Medicine 04/26/20 Tg Houston MD [address] [facility] [address] [place] [address] Consulting Physician Cardiology 07/18/20 Guerrero Hunter DPT [address] [facility] [address] [id number] Physical Therapist Physical Therapy 11/08/20 Guerrero Weiner, FRACTIONATION SUPERVISOR [address] [place] [address] Structural Architect Physical Therapy 12/12/20 documented as of this encounter
--- OUTSIDE RECORDS SUMMARY | 2024-07-12 08:46 | XMS_ITS | Encounter Summary ---
Author Organization [facility] Address [address] [facility] [address] [place] [address] Care Team Providers Care Police Detention Attendant Name Role Phone Enmanuel Gan MD Primary Care Provider [phone] Tg Houston MD Unavailable [phone] Guerrero Hunter DPT Unavailable [phone] Guerrero Weiner GROUP MANAGER Unavailable [phone] Encounter Details Date Type Department Care Team (Late st Contact Info) Description 12/17/[address] [facility] Cardiology [address] [place] [address] Jeremy Hobbs MD [address] [address] Hypersomnia with sleep apnea (Primary Dx); Paroxysmal atrial fibrillation (CMS/HCC) (HCC) Social History Tobacco Use Types [...] attend chur ch or religion services? Never 07/30/2020 Do you belong to [...] on file Legal Sex Female 9:09 PM TOWER ERECTOR Gender Identity Not on file Sexual Orientation Lesbian 05/24/2019 9: 06 AM CDT documented as of this encounter Plan of Treatment Not on file documented as of this encounter Visit Diagnoses Diagnosis Hypersomnia with sleep apnea- Primary Hypersomnia with sleep apnea, unspecified Paroxysmal atrial fibrillation (CMS/HCC) (HCC) Atrial fibrillation documented in this encounter Care Teams Police Detention Attendant Relationship Specialty Start Date End Date Enmanuel Gan MD [address] [facility] [address] [place] [address] PCP - General Internal Medicine 04/26/20 Tg Houston MD [address] [place] [address] Consulting Physician Cardiology 07/18/20 Guerrero Hunter DPT [address] [facility] [address] [facility] [place], [place] [id number] Physical Therapist Physical Therapy 11/08/20 Guerrero Weiner, GROUP MANAGER [address] [place], [place] [id number] Manager Outreach Physical Therapy 12/12/20 documented as of this encounter
--- OUTSIDE RECORDS SUMMARY | 2024-07-12 08:46 | XMS_ITS | Encounter Summary ---
Author Organization [facility] Address [address] [place] [address] Phone Care Team Providers Care Business Transformation Consultant Name Role Phone Enmanuel Gan MD Primary Care Provider [phone] Tg Houston MD Unavailable [phone] Guerrero Hunter DPT Unavailable [phone] Guerrero Weiner FISHING TOOL TECHNICIAN OIL WELL Unavailable [phone] Reason for Referral * Diagnostic Imaging (Routine) - Closed Specialty Diagnoses / Procedures Referred By Contac t Referred To Contact Diagnoses Neck pain Fusion of spine of lumbar region Procedures XR Scoliosis 6 or More Views Jeremy Michelle MD [address] [facility] [address] [place] [address] Phone: tel: fax: [facility] Referral ID Status Reason Start Date Expiration Date Visits Re quested Visits Authorized [id number] Closed 07/17/2022 08/16/2023 1 1 OPATHOLOGIST Reason for Visit * Reason Comments Return Patient Encounter Details Date Type Department Care Team (Late st Contact Info) Description 07/22/2022 9:30 AM HISTOPATHOLOGIST Office Visit [facility] Orthopaedic Surgery [address] [place] [address] [facility] 6th [place] [address] [place] [address] Jeremy Michelle MD [address] [facility] [place] [address] Neck pain (Primary Dx); Fusion of spine of lumbar [...] on file Legal Sex Female 9:09 PM HISTOPATHOLOGIST Gender Identity Not on file Sexual Orientation Lesbian 05/24/2019 9: 06 AM CDT documented as of this encounter Last Filed Vital Signs Vital Sign Reading Time Taken Comments Blood Pressure - - Pulse - - Temperature - - Respiratory Rate - - Oxygen Saturation - - Inhaled Oxygen Concentration - - Weight 79.4 kg (175 lb) 07/22/2022 10:12 AM HISTOPATHOLOGIST Height 162.6 cm (5' 4 ) 07/22/2022 10:12 AM HISTOPATHOLOGIST Body Mass Index 30.04 07/22/2022 10:12 AM HISTOPATHOLOGIST documented in this encounter Patient Instructions * Patient Instructions* Cyndie Byers RN - 07/22/2022 9:30 AM HISTOPATHOLOGIST Thank you for your visit today we are pleased to be here to assist with your spine needs. Sincerely, Dr. Jeremy Michelle & Cyndie Byers RN Please contact Dr. Miguel Angel Agee's Nurse if you have any questions. Mail disc to: Orthopedics Attn: Cyndie/ Dr. Michelle [address] [place] [address] OPATHOLOGIST documented in this encounter Progress Notes * Jeremy Michelle MD - 07/22/2022 9:30 AM CST OPATHOLOGIST * Jeremy Michelle MD - 07/22/2022 9:30 AM CST Images from the original note were not included. Established Patient Visit Interim History Macie Briseno returns to our office today for routine post-operative follow up. 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 She was instrumented L1-L4. Overall she states she is been having some occasional low back pain and increased pain in the L4 distribution. The pain is not severe enough to inhibit her daily activities however she has decreased activity because of the pain. She denies radicular pain or issues with balance. Denies recent illness, fevers, or chills. 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 Has been seen by Dr. An and now has a brace for the hip, however this does increase her back pain. Physical Examination CONSTITUTIONAL: In general, patient is well appearing, is alert, and is in no acute distress. SKIN: Surgical incision is well healed. No erythema or drainage. MUSCULOSKELETAL / NEUROLOGICAL: The patient ambulates with a normal gait. RIGHT UE: C5 (biceps) 5/5 C6 (WE) 5/5 C7 (triceps) 5/5 C8 (finger flex) 5/5 T1 (inteross) 5/5 SILT throughout C5-T1 dermatomes Hoffmans - Br/Biceps 2+ LEFT UE: C5 (biceps) 5/5 C6 (WE) 5/5 C7 (triceps) 5/5 C8 (finger flex) 5/5 T1 (inteross) 5/5 SILT throughout C5-T1 dermatomes Hoffmans - Br/Biceps 2+ RIGHT LE: L2 (IP) 5/5 L3 (KE) 5/5 L4 (TA) 5/5 L5 (EHL) 5/5 S1 (GS) 5/5 SILT throughout L2-S1 dermatomes 2+patella 1+ achilles Downgoing toes <2b clonus LEFT LE: L2 (IP) 5/5 L3 (KE) 5/5 L4 (TA) 5/5 L5 (EHL) 5/5 S1 (GS) 5/5 SILT throughout L2-S1 dermatomes 2+patella 1+ achilles Downgoing toes <2b clonus Review of Plain Radiographs/Studies Radiographs were ordered and independently interpreted by myself today. CT lumbar Spine 07/08/22 demonstrates good fusion mass L2-L4. There is lysis surrounding the L1 screws without definitive fusion L1-L2. No evidence of backout of instrumentation. Impression/Diagnosis/Treatment Plan Unfortunately. 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 We discussed treatment options including continued observation versus possible revision. At this time she would like to continue with observation and start working with physical therapy for her hip. I think this is a reasonable option. I would like her to get a non-union workup including infection and nutrition labs. She will follow up in 3 months with repeat imaging. Will call our office with any issues in the interim. Attd Summary She is doing well now 2 years out from lumbar revision for nonunion. Unfortunately it looks like she has gone on to have a nonunion at her top level L1-2 even though the L2-3 level has now solidly fused. She does have upper back pain that is worse in the last 3 months but it is unclear how much it really bothers her- so far it is pretty mild she says. On her imaging she has haloing around the screws and what appears to be nonunion at that level without backing out. No evidence of hardware failure otherwise. On her exam she does have some L4 radicular pain on the right that is new since the last hip dislocation - otherwise she remains intact and ambulates without difficulty today. She is 5/5 throughout. We had a long talk today about what her options are moving forward. She is going to do PT for her hip and I think this is a great idea - she should do core strengthening as well. We discussed the nonunion and went through imaging together. El happy to revise this whenever she would like going up 1 or 2 levels. I do not think the L4 radicular pain has anything to do with her spine as she is fused at those levels and that has not changed. I do think it is likely due to her sciatic nerve and her hip dislocations. She is going to work ontherapy and getting stronger and making sure hip stays put and then we are going to see another 3-6months to discuss her back and revise it if she is ready to. Jeremy Michelle MD PhD Dental Laboratory Supervisor of Orthopaedic Bath TesterDental Laboratory Supervisor of Neurological Surgery [facility] [place] Electrical Products Sales Engineer done by [employer]; therefore, variances and inaccuracies may occur. I reviewed the patient problem list pertinent to the visit today, but the entire patient problem list was not reviewed today. OPATHOLOGIST documented in this encounter Plan of Treatment Not on file documented as of this encounter Results * XR Scoliosis 6 or More Views (07/22/2022 9:48 AM HISTOPATHOLOGIST) Anatomical Region Laterality Modality Spine N/A Computed Radiogr aphy 07/22/2022 9:55 AM HISTOPATHOLOGIST Impressions 07/22/2022 9:55 AM HISTOPATHOLOGIST 1. ??Unchanged combined anterior posterior instrumented fusion from L1-S1. Electronically signed by: Matt Flor MD Narrative 07/22/2022 9:55 AM HISTOPATHOLOGIST EXAMINATION: XR SCOLIOSIS ??6 OR MORE VIEWS HISTORY: ??Spinal fusion. FINDINGS: Standing AP and lateral digitally acquired views of the entire spine and lower extremities as well as some views of the lumbar spine are reviewed with comparison to CT 07/08/2022, radiographs 04/30/2022. There is no significant abnormal curvature of the spine. ??There is no significant truncal imbalance or pelvic obliquity. There is unchanged posterior decompression and instrumented fusion from L1-L4 with unchanged combined anterior discectomy and interbody fusion from L2-S1. ??Osteolysis about the L1 pedicle screws is unchanged. ??The hardware is intact. ??There is no abnormal motion across fused segments with bending. ??There is multilevel degenerative disc disease at the thoracic lumbar spine, greatest and moderate at T11-T12. Bilateral total hip arthroplasties are present in expected positioning. ??A left subclavian the SVC/pacemaker and right upper quadrant surgical clips are present. Procedure Note Matt Flor MD - 07/22/2022 EXAMINATION: XR SCOLIOSIS 6 OR MORE VIEWS HISTORY: Spinal fusion. FINDINGS: Standing AP and lateral digitally acquired views of the entire spine and lower extremities as well as some views of the lumbar spine are reviewed with comparison to CT 07/08/2022, radiographs 04/30/2022. There is no significant abnormal curvature of the spine. There is no significant truncal imbalance or pelvic obliquity. There is unchanged posterior decompression and instrumented fusion from L1-L4 with unchanged combined anterior discectomy and interbody fusion from L2-S1. Osteolysis about the L1 pedicle screws is unchanged. The hardware is intact. There is no abnormal motion across fused segments with bending. There is multilevel degenerative disc disease at the thoracic lumbar spine, greatest and moderate at T11-T12. Bilateral total hip arthroplasties are present in expected positioning. A left subclavian the SVC/pacemaker and right upper quadrant surgical clips are present. IMPRESSION: 1. Unchanged combined anterior posterior instrumented fusion from L1-S1. Electronically signed by: Matt Flor MD Jeremy Michelle MD IMG XR PROCEDURES Fi nal Result documented in this encounter Visit Diagnoses Diagnosis Neck pain- Primary Cervicalgia Fusion of spine of lumbar region Neck pain Cervicalgia Fusion of spine of lumbar region documented in this encounter Care Teams Business Transformation Consultant Relationship Specialty Start Date End Date Enmanuel Gan MD [address] [facility] [address] [place] [address] PCP - General Internal Medicine 04/26/20 Tg Houston MD [address] [facility] [address] [place] [address] Consulting Physician Cardiology 07/18/20 Guerrero Hunter DPT [address] [facility] [address] [address] Physical Therapist Physical Therapy 11/08/20 Guerrero Weiner PTA [id number] [place] [address] Business Intern Physical Therapy 12/12/20 documented as of this encounter
--- OUTSIDE RECORDS SUMMARY | 2024-07-12 08:46 | XMS_ITS | Encounter Summary ---
Author Organization [facility] Healthcare Address [address] [place] [address] Care Team Providers Care Manager Flight Name Role Phone Enmanuel Gan MD Primary Care Provider [phone] Tg Houston MD Unavailable [phone] Guerrero Hunter DPT Unavailable [phone] Guerrero Weiner PATIENT CARRIER Unavailable [phone] Reason for Referral * Diagnostic Imaging (Routine) - Closed Specialty Diagnoses / Procedures Referred By Contac t Referred To Contact Diagnoses Neck pain Fusion of spine of lumbar region Procedures XR Scoliosis 6 or More Views Jeremy Michelle MD [address] [place] [address] Phone: tel: fax: [facility] Referral ID Status Reason Start Date Expiration Date Visits Re quested Visits Authorized [id number] Closed 07/17/2022 08/16/2023 1 1 NING COACH Reason for Visit * Diagnostic Imaging (Routine) - Closed Specialty Diagnoses / Procedures Referred By Contac t Referred To Contact Diagnoses Neck pain Fusion of spine of lumbar region Procedures XR Scoliosis 6 or More Views Jeremy Michelle MD [address] [place] [address] Phone: tel: fax: [facility] Referral ID Status Reason Start Date Expiration Date Visits Re quested Visits Authorized [id number] Closed 07/17/2022 08/16/2023 1 1 Encounter Details Date Type Department Care Team (Latest Contact Info) Description 07/22/2022 9:00 AM LEARNING COACH - 07/22/2022 11:59 PM LEARNING COACH Hospital Encounter [facility] [address] [place] [address] Jeremy Michelle MD [address] [facility] [address] [place] [address] Neck pain; Fusion of spine of lumbar region Discharge [...] often do you attend chur ch or sabianist services? Never 07/30/2020 Do you belong to [...] file Legal Sex Female 9:09 PM LEARNING COACH Gender Identity Not on file Sexual Orientation [...] VIEWS Schedule Routine, Read Routine (OP Routine) 07/22/2022 9:48 AM LEARNING COACH Neck pain Fusion of spine of lumbar region documented in this encounter Results * XR Scoliosis 6 or More Views (07/22/2022 9:48 AM LEARNING COACH) Anatomical Region Laterality Modality Spine N/A Computed Radiogr aphy 07/22/2022 9:55 AM LEARNING COACH Impressions 07/22/2022 9:55 AM LEARNING COACH 1. ??Unchanged combined anterior posterior instrumented fusion from L1-S1. Electronically signed by: Matt Flor MD Narrative 07/22/2022 9:55 AM LEARNING COACH EXAMINATION: XR SCOLIOSIS ??6 OR MORE VIEWS [...] surgical clips are present. Procedure Note Matt lFor MD - 07/22/2022 EXAMINATION: XR SCOLIOSIS 6 [...] L1-S1. Electronically signed by: Matt Flor MD us Jeremy Michelle MD IMG XR PROCEDURES Fi nal Result documented in this encounter Visit Diagnoses Diagnosis Neck pain Cervicalgia Fusion of spine of lumbar region documented in this encounter Care Teams Manager Flight Relationship Specialty Start Date End Date Enmanuel Gan MD [address] [place], [place] [id number] PCP - General Internal Medicine 04/26/20 Tg Houston MD [address] [facility] [address] [place] [address] Consulting Physician Cardiology 07/18/20 Guerrero Hunter DPT [address] [facility] [address] [facility] [place] [address] Physical Therapist Physical Therapy 11/08/20 Guerrero Weiner PATIENT CARRIER [id number] [place] [address] Toddler Caregiver Physical Therapy 12/12/20 documented as of this encounter
--- OUTSIDE RECORDS SUMMARY | 2024-07-12 08:46 | XMS_ITS | Encounter Summary ---
Author Organization [facility] Address [address] [place] [address] Care Team Providers Care Jute Bag Cutting Machine Operator Name Role Phone Enmanuel Gan MD Primary Care Provider [phone] Tg Houston MD Unavailable [phone] Guerrero Hunter DPT Unavailable [phone] Guerrero Weiner CAFETERIA MANAGER Unavailable [phone] Encounter Details Date Type Department Care Team (Late st Contact Info) Description 12/09/[address] [facility] Cardiology [address] [place] [address] Jeremy Hobbs MD [id number] Social History Tobacco Use Types Packs/Day Years [...] 07/30/2020 How often do you attend [facility] or rastafarian services? Never 07/30/2020 Do [...] on file Legal Sex Female 9:09 PM LAND MANAGEMENT SUPERVISOR Gender Identity Not on file Sexual Orientation Lesbian 05/24/2019 9: 06 AM CDT documented as of this encounter Miscellaneous Notes * Telephone Encounter - Latisha Bautista RN - 12/10/2022 8:59 AM CDT LM on VM with pt that MAF aware of increase and ok with it. * Telephone Encounter - Latisha Bautista RN - 12/09/2022 9:31 AM CDT Will forward to [facility]. * Telephone Encounter - Sally Richardson - 12/09/2022 8:31 AM CDT Pt states there Dr Tejeda suggest that she increase her furosemide from 20 mg to 40 mg. She states that the increase has made her feel better. She wants to make sure that MAF is ok with the increase. Requesting call back to discuss. Contact [phone] documented in this encounter Plan of Treatment Not on file documented as of this encounter Visit Diagnoses Not on filedocumented in this encounter Care Teams Jute Bag Cutting Machine Operator Relationship Specialty Start Date End Date Enmanuel Gan MD [address] [place], [place] [id number] PCP - General Internal Medicine 04/26/20 Tg Houston MD [address] [place] [address] Consulting Physician Cardiology 07/18/20 Guerrero Hunter DPT [address] [facility] [address] [place] [address] Physical Therapist Physical Therapy 11/08/20 Guerrero Weiner, [facility] [address] [facility] [address] [place] [address] Machine Edge Bander Physical Therapy 12/12/20 documented as of this encounter
--- OUTSIDE RECORDS SUMMARY | 2024-07-12 08:46 | XMS_ITS | Encounter Summary ---
Author Organization [facility] Healthcare Address [address] [place] [address] Care Team Providers Care Clinical Product Manager Name Role Phone Enmanuel Gan MD Primary Care Provider [phone] Tg Houston MD Unavailable [phone] Guerrero Hunter DPT Unavailable [phone] Guerrero Weiner HAIR CUTTER Unavailable [phone] Reason for Referral * Diagnostic Imaging (Routine) - Closed Specialty Diagnoses / Procedures Referred By Contac t Referred To Contact Diagnoses History of bilateral total hip arthroplasty Procedures XR Hip Right 2 or 3 Views W Pelvis Gagan An MD [address] [place] [address] Phone: tel: fax: [facility] [address] [facility] [address] [place] [address] Phone: tel: Referral ID Status Reason Start Date Expiration Date Visits Re quested Visits Authorized [id number] Closed 05/02/2022 06/01/2023 1 1 R PLANT MANAGER Reason for Visit * Diagnostic Imaging (Routine) - Closed Specialty Diagnoses / Procedures Referred By Contac t Referred To Contact Diagnoses History of bilateral total hip arthroplasty Procedures XR Hip Right 2 or 3 Views W Pelvis Gagan An MD [address] [place] [address] Phone: tel: fax: [facility] [address] [facility] [address] [place] [address] Phone: tel: Referral ID Status Reason Start Date Expiration Date Visits Re quested Visits Authorized [id number] Closed 05/02/2022 06/01/2023 1 1 Encounter Details Date Type Department Care Team (Latest Contact Info) Description 07/09/2022 1:15 PM POWER PLANT MANAGER - 07/09/2022 11:59 PM POWER PLANT MANAGER Hospital Encounter [id number] [address] [facility] [address] [place] [address] History of bilateral total hip arthroplasty Discharge Disposition: Discharge to home or self [...] on file Legal Sex Female 9:09 PM POWER PLANT MANAGER Gender Identity Not on file Sexual [...] Priority Date/Time Associated Diagnosis Comments XR HIP RIGHT W PELVIS 2 OR 3 VIEWS Schedule Routine, Read Routine (OP Routine) 07/09/2022 1:46 PM POWER PLANT MANAGER History of bilateral total hip arthroplasty documented in this encounter Results * XR Hip Right 2 or 3 Views W Pelvis (07/09/2022 1:46 PM POWER PLANT MANAGER) Anatomical Region Laterality Modality Lower Extremities, Hip, Pelvis Right C omputed Radiography 07/09/2022 2:48 PM POWER PLANT MANAGER Impressions 07/09/2022 5:18 PM POWER PLANT MANAGER Interval reduction of right total hip arthroplasty dislocation. Dictated by: Rylan Hussein MD PHD The radiology attending physician has personally reviewed this study, and had reviewed and/or edited this written report and agrees with it. Electronically signed by: Shiv Calderon MD Narrative 07/09/2022 5:18 PM POWER PLANT MANAGER EXAMINATION: XR HIP RIGHT 2 OR 3 VIEWS W PELVIS HISTORY: Right hip arthroplasty, follow-up COMPARISON: 05/01/2022 FINDINGS: 2 views of the right hip are submitted for evaluation. There is interval reduction of the right total hip arthroplasty dislocation. ??Right hip arthroplasty is in near anatomic alignment. There is no periprosthetic fracture or lucency or asymmetric liner wear. ??A left total hip arthroplasty is present. Procedure Note Shiv Calderon MD - 07/09/2022 EXAMINATION: XR HIP RIGHT 2 OR 3 VIEWS W PELVIS HISTORY: Right hip arthroplasty, follow-up COMPARISON: 05/01/2022 FINDINGS: 2 views of the right hip are submitted for evaluation. There is interval reduction of the right total hip arthroplasty dislocation. Right hip arthroplasty is in near anatomic alignment. There is no periprosthetic fracture or lucency or asymmetric liner wear. A left total hip arthroplasty is present. IMPRESSION: Interval reduction of right total hip arthroplasty dislocation. Dictated by: Rylan Hussein MD PHD The radiology attending physician has personally reviewed this study, and had reviewed and/or edited this written report and agrees with it. Electronically signed by: Shiv Calderon MD Gagan An MD IMG XR PROCEDURES Final R esult documented in this encounter Visit Diagnoses Diagnosis History of bilateral total hip arthroplasty documented in this encounter Care Teams Clinical Product Manager Relationship Specialty Start Date End Date Enmanuel Gan MD [address] [place] [address] PCP - General Internal Medicine 04/26/20 Tg Houston MD [address] [facility] [address] [place] [address] Consulting Physician Cardiology 07/18/20 Guerrero Hunter DPT [address] [facility] [address] [place] [address] Physical Therapist Physical Therapy 11/08/20 Guerrero Weiner, [facility] [address] [facility] [address] [place] [address] Tabulating Supervisor Physical Therapy 12/12/20 documented as of this encounter
--- OUTSIDE RECORDS SUMMARY | 2024-07-12 08:47 | XMS_ITS | Encounter Summary ---
Author Organization [facility] Address [address] [place] [address] Phone Care Team Providers Care Auxiliary Powerplant Operator Name Role Phone Enmanuel Gan MD Primary Care Provider [phone] Tg Houston MD Unavailable [phone] Guerrero Hunter DPT Unavailable [phone] Guerrero Weiner TELECOM NETWORK MANAGER Unavailable [phone] Reason for Visit * Reason Comments Pain Encounter Details Date Type Department Care Team (Latest Contact Info) Description 04/07/2022 10:00 AM CDT Office Visit [facility] Orthopaedic Surgery [address] [place] [address] Medical Office Building [address] [place] [id number] Gagan An MD [address] [place] [address] [address] [place] [address] History of bilateral total hip arthroplasty (Primary Dx); Right hip pain; Aftercare following right hip joint replacement surgery; Closed posterior dislocation of right hip, initial encounter ([facility]) Social History Tobacco Use Types Packs/Day Years [...] on file Legal Sex Female 9:09 PM TELEPHONE 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 NEW PATIENT VISIT INTERIM HISTORY: Macie Briseno is a pleasant 76 year old female with history of bilateral total hip replacement (2014: left GRAEME, 2015: right GRAEME) and prior revision lumbar fusion (Dr. Michelle) who sustained a right periprosthetic hip dislocation which was reduced at an outside facility near her home on 04/03/2022.She reports that she was in a hyperflexed position when dislocating. She reports no issues since reduction and has been using a rolling walker as a precaution. She reports mild, tolerable soreness about the right hip. PHYSICAL EXAM: Right Hip Pain: minimal with activity Incision: healing with no signs of infection, induration, or drainage Range of Motion: minimal pain with gentle range of motion assessment, no mechanical signs of instability with ROM Pulses Intact: Yes Dependent Edema: No Neurological Status Intact: Yes REVIEW OF XRAYS/STUDIES: Radiographs ordered and reviewed. Shows components are well positioned without any signs of loosening or failure. DX: Macie Briseno is a 76 y.o. female status post right total hip replacement and is making appropriate progress. TREATMENT PLAN: 1. The patient remains full weight bearing. 2. Encourage exercises to strengthen core and hip muscles. 3. Continue back brace. She will call if she desires an abduction brace FOLLOW UP: Return for 10 year follow-up appointment. Maikel Beaver MD ATTENDING ATTESTATION I was present for the critical portion of the history, physical examination and participated in theradiographic review and medical decision making on this patient. I agree with the findings in the report of the above resident/fellow dictating using Fiix Direct software. Gagan An MD PHONE CLERKS SUPERVISOR documented in this encounter Plan of Treatment Not on file documented as of this encounter Visit Diagnoses Diagnosis History of bilateral total hip arthroplasty- Primary Right hip pain Pain in joint, pelvic region and thigh Aftercare following right hip joint replacement surgery Closed posterior dislocation of right hip, initial encounter (HCC) documented in this encounter Historical Medications * This list may reflect changes made after this encounter. HYDROcodone-aceta minophen (NORCO) 5-325 mg per tabletIndications :Pain Take 1 tablet by mouth every 6 (six) hours as needed for pain 04/03/2022 12/14/2023 added in this encounter Care Teams Auxiliary Powerplant Operator Relationship Specialty Start Date End Date Enmanuel Gan MD [address] [facility] MEDICINE [place] [id number] PCP - General Internal Medicine 04/26/20 Tg Houston MD [address] [place] [address] Consulting Physician Cardiology 07/18/20 Guerrero Hunter DPT [address] [facility] [address] [address] Physical Therapist Physical Therapy 11/08/20 Guerrero Weiner PTA [address] [id number] [place] [address] Customs Guard Physical Therapy 12/12/20 documented as of this encounter
--- OUTSIDE RECORDS SUMMARY | 2024-07-12 08:47 | XMS_ITS | Encounter Summary ---
Author Organization [facility] Address [address] [facility] [address] [place] [address] Care Team Providers Care Furniture Technician Name Role Phone Enmanuel Gan MD Primary Care Provider [phone] Tg Houston MD Unavailable [phone] Guerrero Hunter DPT Unavailable [phone] Guerrero Weiner ENVIRONMENTAL ADVISOR Unavailable [phone] Encounter Details Date Type Department Care Team (Late st Contact Info) Description 07/01/2022 Telephone [facility] Cardiology [address] [facility] [address] [place] [address] Lucia Mcmahan NP [address] [facility] [address] [place] [address] Social History Tobacco Use Types [...] week 07/30/2020 How often do you attend [facility] or oriental orthodox services? 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 Patient verbally understood and will call next weekwith update on how she is feeling. ING MACHINE OPERATOR * Telephone Encounter - Ivy Martin - 07/01/2022 12:26 PM PADDING MACHINE OPERATOR Lm with patient to call office for results and recommendations ING MACHINE OPERATOR * Telephone Encounter - Ivy Martin - 07/01/2022 12:26 PM PADDING MACHINE OPERATOR ----- Message from Lucia Dennis NP sent at 07/01/2022 12:17 PM PADDING MACHINE OPERATOR ----- Please call patient and let her know that her blood work has been reviewed. Her kidney function electrolytes are all within normal range. Okay to start low-dose diuretic and have her call us next week to follow-up how she is feeling. Thank you ING MACHINE OPERATOR documented in this encounter Plan of Treatment Not on file documented as of this encounter Visit Diagnoses Not on filedocumented in this encounter Care Teams Furniture Technician Relationship Specialty Start Date End Date Enmanuel Gan MD [address] [facility] [address] INTERNAL MEDICINE [place], [place] [id number] PCP - General Internal Medicine 04/26/20 Tg Houston MD [address] [place] [address] Consulting Physician Cardiology 07/18/20 Guerrero Hunter DPT [address] [facility] [address] [facility] [place] [address] Physical Therapist Physical Therapy 11/08/20 Guerrero Weiner ENVIRONMENTAL ADVISOR [address] [facility] [address] [place] [address] Portrait Artist Physical Therapy 12/12/20 documented as of this encounter
--- OUTSIDE RECORDS SUMMARY | 2024-07-12 08:47 | XMS_ITS | Encounter Summary ---
Author Organization [facility] Address [address] [place] [address] Phone Care Team Providers Care Building Inspection Engineer Name Role Phone Enmanuel Gan MD Primary Care Provider [phone] Tg Houston MD Unavailable [phone] Guerrero Hunter DPT Unavailable [phone] Guerrero Weiner BOATSWAIN MATE Unavailable [phone] Reason for Visit * Reason Onset Date Comments Hip Injury 05/02/2022 Encounter Details Date Type Department Care Team (Late st Contact Info) Description 05/02/2022 Telephone [facility] Orthopaedic Surgery [address] [facility] Advanced Medicine 6th [place] [address] [place] [address] Jeremy Michelle MD [address] [facility] [address] [place] [address] Hip Injury Social History Tobacco Use Types Packs/Day Years [...] often do you attend chur ch or roman catholic services? Never 07/30/2020 Do you belong to any clubs o r organizations such as mormonism groups, unions, fraternal or athletic groups, or [...] on file Legal Sex Female 9:09 PM SYSTEMS SPEC Gender Identity Not on file Sexual Orientation Lesbian 05/24/2019 9: 06 AM CDT documented as of this encounter Miscellaneous Notes * Telephone Encounter - Cyndie Byers RN - 05/02/2022 3:11 PM CDT Patient called to notify office of her hip dislocation and see if she need to move any appts up. She will have a CT done in June and see after. She is also following up with who did her hip replacements. She will call if any changes are needed. documented in this encounter Plan of Treatment Not on file documented as of this encounter Visit Diagnoses Not on filedocumented in this encounter Care Teams Building Inspection Engineer Relationship Specialty Start Date End Date Enmanuel Gan MD [address] [place] [address] PCP - General Internal Medicine 04/26/20 Tg Houston MD [address] [place] [address] Consulting Physician Cardiology 07/18/20 Guerrero Hunter DPT [address] [facility] [address] [facility] [place], [place] [id number] Physical Therapist Physical Therapy 11/08/20 Guerrero Weiner, BOATSWAIN MATE [address] [place] [address] Diamond Die Polisher Physical Therapy 12/12/20 documented as of this encounter
--- OUTSIDE RECORDS SUMMARY | 2024-07-12 08:47 | XMS_ITS | Encounter Summary ---
Author Organization [facility] Address [address] [address] Care Team Providers Care Supply Chain Buyer Name Role Phone Enmanuel Gan MD Primary Care Provider [phone] Tg Houston MD Unavailable [phone] Guerrero Hunter DPT Unavailable [phone] Guerrero Weiner BARBERING TEACHER Unavailable [phone] Reason for Referral * Cardiology (Routine) - Closed Specialty Diagnoses / Procedures Referred By Gigi orosco Referred To Contact Diagnoses Atrial fibrillation, unspecified type (HCC) Procedures DEVICE CHECK - IN OFFICE Clara Thakkar NP [address] [facility] [address] Phone: tel: fax: [facility] Referral ID Status Reason Start Date Expiration Date Visits Re quested Visits Authorized [id number] Closed 03/24/2022 04/23/2023 1 1 Reason for Visit * Reason Comments Cardiomyopathy Chest Pain Encounter Details Date Type Department Care Team (Late st Contact Info) Description 03/24/2022 1:30 PM CDT Office Visit [facility] [address] [facility] [address], [place] [address] Clara Thakkar NP [address] [facility] [address] [place] [address] Atrial fibrillation, unspecified type (HCC) (Primary Dx) Social History Tobacco Use [...] often do you attend chur ch or baptist services? 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 Gender Identity Not on file Sexual Orientation Lesbian 05/24/2019 9: 06 AM CDT documented as of this encounter Last Filed Vital Signs Vital Sign Reading Time Taken Comments Blood Pressure 110/67 03/24/2022 1:11 PM CDT Pulse 68 03/24/2022 1:11 PM CDT Temperature - - Respiratory Rate - - Oxygen Saturation - - Inhaled Oxygen Concentration - - Weight 77.8 kg (171 lb 9.6 oz) 03/24/2022 1:11 P M CDT Height 162.6 cm (5' 4 ) 03/24/2022 1:11 PM CDT Body Mass Index 29.46 03/24/2022 1:11 PM CDT documented in this encounter Progress Notes * Clara Thakkar NP - 03/24/2022 1:30 PM CDT Images from the original note were not included. Established Patient Note- [facility] Ar[facility]ia Center [facility] Arrhythmia Center [address] [place] [address], [address] [address] This note was dictated with voice-recognition software, and director hardware errors may be present. Subjective/Objective Patient ID: Macie Briseno is a 76 y.o. female Chief Complaint Presyncope I had the pleasure of seeing Macie Briseno in consultation at [facility] at [facility] for follow-up of presyncope . As you know, she is a 76 y.o. female with the following arrhythmia-specific history: AV block, second degree. With alternating bundle branch block and presyncope. Atrial fibrillation, paroxysmal. History of flecainide use, stopped due to AV block. On apixaban. Hypertrophic cardiomyopathy, apical variant. Confirmed by cMRI 04/10/21. Max transmural dimension 1.5 cm. No obstruction. Relevant comorbidities: Hypertension She underwent placement of a dual-chamber ICD by Dr. Recio on 05/28/2021. No recent ventricular or atrial arrhythmias. She complains of chronic shortness of breath. She follows with Dr. Tejeda. No recent hospitalizations or major medical events. EKG on my review today demonstrates sinus rhythm (63) with normal QRS duration and QT interval Past Medical History Past Medical History: Diagnosis Date Atrial fibrillation (CMS/HCC) (HCC) Auditory vertigo Meniere's disease HLD (hyperlipidemia) Meniere's disease Microvascular angina (CMS/HCC) (HCC) Past Surgical History Past Surgical History: Procedure Laterality Date BACK SURGERY 2017 lower back, 2018, 2019 CHOLECYSTECTOMY Cholecystectomy COCHLEAR IMPLANT Left 06/19/2020 IR INJECTION ARTHROGRAM SI JOINT BILATERAL WITH GUIDANCE Bilateral 02/15/2021 IR INJECTION ARTHROGRAM SI JOINT LEFT INCLUDES IMAGING GUIDANCE Left 09/06/2021 JOINT REPLACEMENT Hip replacement, L - 2013, R - 2014 OTHER SURGICAL HISTORY 1998 Sectioning of left vesibular nerve TOTAL HIP ARTHROPLASTY Bilateral 2013 VESTIBULAR NERVE SECTION Left Medications Current Outpatient Medications: ALPRAZolam (XANAX) 0.25 mg tablet, Take 1 tablet (0.25 mg total) by mouth nightly as needed for anxiety, Disp: 30 tablet, Rfl: 1 atorvastatin (LIPITOR) 20 mg tablet, Take 20 mg by mouth nightly , Disp: , Rfl: azelastine (ASTELIN) 137 mcg (0.1 %) nasal spray, 1 spray 2 (two) times a day, Disp: , Rfl: calcium acetate,phosphat bind, (PHOSLO) 667 mg capsule, Take 1,334 mg by mouth every morning, Disp:, Rfl: dilTIAZem XR (CARDIZEM CD,DILACOR XR) 180 mg 24 hr capsule, Take 1 capsule (180 mg total) by mouth daily, Disp: 30 capsule, Rfl: [address] (CYMBALTA) 30 mg capsule, Take 90 mg by mouth every morning, Disp: , Rfl: Eliquis 5 mg tablet, Take 5 mg by mouth 2 (two) times a day, [...] each nostril nightly), Disp: , Rfl: 0 magnesium citrate 100 mg tablet, Take 1 tablet by mouth every morning, Disp: , Rfl: montelukast (SINGULAIR) 10 mg tablet, , Disp: , Rfl: potassium chloride ER 20 mEq CR tablet, Take 40 mEq by mouth every morning , Disp: , Rfl: sucralfate (CARAFATE) 1 gram tablet, Take 2 g by mouth 2 (two) times a day as needed, Disp: , Rfl: traZODone (DESYREL) 50 mg tablet, , Disp: , Rfl: triamterene-hydroCHLOROthiazide 37.5-25 mg per capsule, TAKE ONE CAPSULE BY MOUTH ONCE DAILY (Patient taking differently: Take 1 tablet/capsule by mouth every morning), Disp: 90 capsule, Rfl: 3 Allergies Allergies Allergen Reactions Adhesive Rash and Blisters Surgical tape Chlorhexidine Rash Sulfa (Sulfonamide Antibiotics) Hives and Rash Gabapentin Other (See comments) Retain water Family History Family History Problem Relation Age of Onset Hypertension Mother No Known Problems Father No Known [...] problems Neg Hx Social History Social History Socioeconomic History Marital status: Spouse name: Not on file Number of children: Not on file Years of education: Not on file Highest education level: Not on file Occupational History Not on file Tobacco Use Smoking status: Never Smoker Smokeless tobacco: Never Used Vaping Use Vaping Use: Never used Substance and Sexual Activity Alcohol use: Yes Alcohol/week: 5.0 standard drinks Types: 5 Glasses of wine per week Drug use: Not Currently Comment: cbd oil topically Sexual activity: Not on file Other Topics Concern Not on file Social History Narrative General Social History Comments: female spouse Social Determinants of Health Financial Resource Strain: Low Risk Difficulty of Paying Living Expenses: Not hard at all Food Insecurity: No Food Insecurity Worried About Running Out of Food in the Last Year: Never true Ran Out of Food in the Last Year: Never true Transportation Needs: No Transportation Needs Lack of Transportation (Medical): No Lack of Transportation (Non-Medical): No Physical Activity: Days of Exercise per Week: Not on file Minutes of Exercise per Session: Not on file Stress: Feeling of Stress : Not on file Social Connections: Moderately Isolated Frequency of Communication with Friends and Family: More than three times a week Frequency of Social Gatherings with Friends and Family: Twice a week Attends Uatsdin Services: Never Active Member of Clubs or Organizations: No Attends Club or Organization Meetings: Never Marital Status: Intimate Partner Violence: Fear of Current or Ex-Partner: Not on file Emotionally Abused: Not on file Physically Abused: Not on file Sexually Abused: Not on file Review of Systems Constitutional: Negative for new fatigue or malaise. Respiratory: Negative for worsening dyspnea or cough. Cardiovascular: Negative chest pain, palpitations, syncope. Objective Vitals: 03/24/22 1311 BP: 110/67 BP Location: Right arm Patient Position: Sitting Pulse: 68 Weight: 77.8 kg (171 lb 9.6 oz) Height: 162.6 cm (5' 4 ) General: No acute distress. Pulmonary: Clear to auscultation bilaterally. Cardiovascular: Regular rate/rhythm. No murmurs/rubs. No JVD or lower extremity edema. Cardiac MRI 04/10/21 reviewed: Normal LV cavity size with prominent asymmetric apical hypertrophy. Maximal transmural dimension 1.5 cm. Normal global LV systolic function, ejection fraction 61%. No LVOT obstruction. Small RV cavity with normal function. Mildly enlarged left atrium. Prominent lipomatous hypertrophy of the interatrial septum. Mild mitral regurgitation. No significant late gadoliniumenhancement. Findings consistent with apical variant hypertrophic cardiomyopathy. Transthoracic echocardiogram from 03/29/2021 reviewed. Hyperdynamic LV function, with systolic obliteration of the apex suggestive of apical hypertrophic cardiomyopathy. LVEF 80%. Grade 2 diastolic dysfunction. Moderate concentric LVH. Impression and Plan Diagnoses and all orders for this visit: Atrial fibrillation, unspecified type (HCC) (Primary) - [...] with in office device interrogations as needed. No changes to her medications were made at this office visit She can follow up in 1 year for an office visit, 12 lead EKG, and device interrogation Clara Thakkar NP [facility] Arr[facility]ia Center documented in this [...] 77 y.o. female. This patient received a [employer] scientific ICD. ??They had a routine in [...] 9.8 seconds Episodes last 90 days/Comments: AF Posey <1%, there were 10 episodes classified as [...] CD 180 mg daily PLAN: 1) normal [employer] scientific ICD evaluation. 2) [employer] scientific remote transmission scheduled in 3 months. 3) Programming appropriate for device measurements Yanni David RN Clara Thakkar NP [facility] PROCED URES Final Result documented in this encounter Visit Diagnoses Diagnosis Atrial fibrillation, unspecified type (HCC)- Primary ICD (implantable cardioverter-defibrillator), dual, in situ- Primary Atrial fibrillation, unspecified type (HCC) AV block, 2nd degree Other second degree atrioventricular block Apical variant hypertrophic cardiomyopathy (HCC) documented in this encounter Historical Medications * This list may reflect changes made after this encounter. Medication Sig Dispense Quantity Refills Last Filled Start D ate End Date montelukast (SINGULAIR) 10 mg tablet 02/19/2022 11/28/2022 added in this encounter Care Teams Supply Chain Buyer Relationship Specialty Start Date End Date Enmanuel Gan MD [address] [facility] [address] [place] [address] PCP - General Internal Medicine 04/26/20 Tg Houston MD [address] [place] [address] Consulting Physician Cardiology 07/18/20 Guerrero Hunter DPT [address] [facility] [address] [place] [address] Physical Therapist Physical Therapy 11/08/20 Guerrero Weiner, BARBERING TEACHER [address] [place] [address] Restaurant Greeter Physical Therapy 12/12/20 documented as of this encounter
--- OUTSIDE RECORDS SUMMARY | 2024-07-12 08:47 | XMS_ITS | Encounter Summary ---
Author Organization [facility] Healthcare Address [address] [place] [address] Care Team Providers Care Graduate Teaching Associate Name Role Phone Enmanuel Gan MD Primary Care Provider Tg Houston MD Unavailable [phone] Guerrero Hunter DPT Unavailable [phone] Guerrero Weiner WASHER AND CAPPER MACHINE OPERATOR Unavailable [phone] Encounter Details Date Type Department Care Team (Latest Contact Info) Description 05/07/2022 5:27 PM CDT Hospital Encounter [facility] [place] [address] Discharge Disposition: Discharge to home or self [...] often do you attend chur ch or church services? 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 Gender Identity Not on file Sexual Orientation Lesbian 05/24/2019 9: 06 AM CDT documented as of this encounter Medications at Time of Discharge atorvastatin (LIPITOR) 20 mg tabletIndications: hyperlipidemia Take 1 tablet (20 mg total) by mouth nightly 07/29/2018 ALPRAZolam (XANAX) 0.25 mg tablet Take 1 tablet (0.25 mg total) by mouth nightly as needed for anxiety 30 tablet 1 03/11/2022 2 azelastine (ASTELIN) 137 mcg (0.1 %) nasal sprayIndications:S easonal Allergic Rhinitis Administer 1 spray into each nostril 2 (two) times a day as needed for rhinitis or allergies 12/30/2021 4 calcium acetate,phosphat bind, (PHOSLO) 667 mg capsuleIndications :supplement Take 2 capsules (1,334 mg total) by mouth every morning 4 cefdinir (OMNICEF) 300 mg capsule Take 300 mg by mouth every 12 (twelve) hours 04/14/2022 2 dilTIAZem XR (CARDIZEM CD,DILACOR XR) 180 mg 24 hr capsule Take 1 capsule (180 mg total) by mouth daily 90 capsule 1 04/15/[address] (CYMBALTA) 30 mg capsuleIndications :Anxiety with Depression Take 3 capsules (90 mg total) by mouth every morning 12/21/2019 4 Eliquis 5 mg tabletIndications: atrial fibrillation Take 1 tablet (5 mg total) by mouth 2 (two) times a day 04/23/2021 4 fexofenadine-pseud oephedrine (THELMA-D) 60-120 mg per 12 hr tabletIndications: Allergic Rhinitis Take 1 tablet by mouth 2 (two) times a day as needed for allergies 4 fluticasone (FLONASE) 50 mcg/actuation nasal spray inhale 1 spray (50MCG) by intranasal route every day in each nostril 0 06/15/2012 4 HYDROcodone-acetam inophen (NORCO) 5-325 mg per tabletIndications: Pain Take 1 tablet by mouth every 6 (six) hours as needed for pain 04/03/2022 4 magnesium citrate 100 mg tabletIndications: hypomagnesemia Take 1 tablet by mouth every morning 4 montelukast (SINGULAIR) 10 mg tablet 02/19/2022 3 potassium chloride ER 20 mEq CR tabletIndications: supplement Take 2 tablets (40 mEq total) by mouth every morning 06/29/2020 4 senna-docusate (PERICOLACE) 8.6-50 mgIndications:cons tipation Take 2 tablets by mouth 2 (two) times a day for 14 days 56 tablet 07/29/2020 4 sucralfate (CARAFATE) 1 gram tablet Take 2 tablets (2 g total) by mouth 2 (two) times a day as needed 4 traZODone (DESYREL) 50 mg tablet 10/28/2021 3 triamterene-hydroC HLOROthiazide 37.5-25 mg per capsule TAKE ONE CAPSULE BY MOUTH ONCE DAILY 90 capsule 3 11/17/2019 3 documented as of this encounter Discharge Disposition Disposition Code Departure Means Destination Discharge to home or self care documented in this encounter Plan of Treatment Not on file documented as of this encounter Procedures Procedure Name Priority Date/Time Associated Diagnosis Comments XR TRANSFER OF OUTSIDE FILMS Routine 05/07/2022 5:27 PM CDT Diagnosis unknown documented in this encounter Results * XR Outside Reference (05/07/2022 5:27 PM CDT) Impressions RAD_PACS_[facility] - 05/07/2022 5:27 PM CDT These images are for Reference purposes only and have not been reviewed by [facility]iology. ??There will be no report generated by a [facility] Radiologist. Narrative RAD_PACS_[facility] - 05/07/2022 5:27 PM CDT EXAMINATION: ??Images For Reference Purposes Only us Gagan An MD IMG XR PROCEDURES Final R esult RAD_PACS[facility] documented in this encounter Visit Diagnoses Not on filedocumented in this encounter Care Teams Graduate Teaching Associate Relationship Specialty Start Date End Date Enmanuel Gan MD [address] [place] [address] PCP - General Internal Medicine 04/26/20 Tg Houston MD [address] [place] [address] Consulting Physician Cardiology 07/18/20 Guerrero Hunter DPT [address] [facility] [address] [place] [address] Physical Therapist Physical Therapy 11/08/20 Guerrero Weiner WASHER AND CAPPER MACHINE OPERATOR [address] [facility] [address] [place] [address] Motor Vehicle Light Assembler Physical Therapy 12/12/20 documented as of this encounter
--- OUTSIDE RECORDS SUMMARY | 2024-07-12 08:47 | XMS_ITS | Encounter Summary ---
Author Organization [facility] Healthcare Address [address] [place] [address] Care Team Providers Care Template Clerk Name Role Phone Enmanuel Gan MD Primary Care Provider [phone] Tg Houston MD Unavailable [phone] Guerrero Hunter DPT Unavailable [phone] Guerrero Weiner SCHOOL TREASURER Unavailable [phone] Reason for Referral * Diagnostic Imaging (Routine) - Closed Specialty Diagnoses / Procedures Referred By Contac t Referred To Contact Diagnoses Right hip pain Procedures XR Hip w/ Pelvis low ortho ap pelvis/ cross table lateral Gagan An MD [address] [place] [address] Phone: tel: fax: [address] [address] Referral ID Status Reason Start Date Expiration Date Visits Re quested Visits Authorized [id number] Closed 04/03/2022 05/03/2023 1 1 Reason for Visit * Diagnostic Imaging (Routine) - Closed Specialty Diagnoses / Procedures Referred By Contac t Referred To Contact Diagnoses Right hip pain Procedures XR Hip w/ Pelvis low ortho ap pelvis/ cross table lateral Gagan An MD [address] [place] [address] Phone: tel: fax: [facility] [address] [place] [address] [phone] Referral ID Status Reason Start Date Expiration Date Visits Re quested Visits Authorized [id number] Closed 04/03/2022 05/03/2023 1 1 Encounter Details Date Type Department Care Team (Latest Contact Info) Description 04/07/2022 9:45 AM CDT - 04/07/2022 11:59 PM CDT Hospital Encounter [id number] [address] [facility] [address] [place] [address] Right hip pain Discharge Disposition: Discharge to home or self [...] often do you attend chur ch or latter day services? 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 Dictated by: Key Ashley MD The radiology attending physician has personally reviewed this study, and had reviewed and/or edited this written report and agrees with it. Electronically signed by: Izaiah Rey M.D. Narrative 04/07/2022 12:37 PM CDT EXAMINATION: X-ray hip, right, 2 or 3 views with pelvis HISTORY: Right hip pain, history of bilateral hip arthroplasties COMPARISON: X-ray hip from 11/26/2015 and x-ray scoliosis from 01/21/2022 05/07/2021 FINDINGS: 2 radiographs of the bilateral hips were reviewed with comparison to prior imaging as above Bilateral hip arthroplasties are present and in expected position. There are no periprosthetic fractures or lucencies. There are no acute fractures. ??Surgical clips project over the pelvis. Procedure Note Izaiah Rey MD - 04/07/2022 EXAMINATION: X-ray hip, right, 2 or 3 views with pelvis HISTORY: Right hip pain, history of bilateral hip arthroplasties COMPARISON: X-ray hip from 11/26/2015 and x-ray scoliosis from 01/21/2022 05/07/2021 FINDINGS: 2 radiographs of the bilateral hips were reviewed with comparison to prior imaging as above Bilateral hip arthroplasties are present and in expected position. There are no periprosthetic fractures or lucencies. There are no acute fractures. Surgical clips project over the pelvis. 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 Dictated by: Key Ashley MD The radiology attending physician has personally reviewed this study, and had reviewed and/or edited this written report and agrees with it. Electronically signed by: Izaiah Rey M.D. Gagan An MD IMG XR PROCEDURES Final R esult documented in this encounter Visit Diagnoses Diagnosis Right hip pain Pain in joint, pelvic region and thigh documented in this encounter Care Teams Template Clerk Relationship Specialty Start Date End Date Enmanuel Gan MD [address] [place] [address] PCP - General Internal Medicine 04/26/20 Tg Hosuton MD [address] [facility] [address] [place] [address] Consulting Physician Cardiology 07/18/20 Guerrero Hunter DPT [address] [facility] [address] [facility] [place], [place] [id number] Physical Therapist Physical Therapy 11/08/20 Guerrero Weiner, [facility] [address] [place] [address] Diversity Manager Physical Therapy 12/12/20 documented as of this encounter
--- OUTSIDE RECORDS SUMMARY | 2024-07-12 08:47 | XMS_ITS | Encounter Summary ---
Author Organization [facility] Healthcare Address [address] [place] [address] Care Team Providers Care Dobby Loom Chain Pegger Name Role Phone Enmanuel Gan MD Primary Care Provider [phone] Tg Houston MD Unavailable [phone] Guerrero Hunter DPT Unavailable [phone] Guerrero Weiner WATER MAIN INSTALLER HELPER Unavailable [phone] Encounter Details Date Type Department Care Team (Latest Contact Info) Description 05/07/2022 5:28 PM CDT - 05/07/2022 11:59 PM CDT Hospital Encounter [facility] [place] [address] Discharge Disposition: Discharge to home or self [...] How often do you attend chur or pentecostalism services? 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 ??There will be no report generated by a [facility] Radiologist. Narrative RAD_PACS_[facility]J - 05/07/2022 5:28 PM CDT EXAMINATION: ??Images For Reference Purposes Only Gagan An MD IMG XR PROCEDURES Final R esult [facility] documented in this encounter Visit Diagnoses Not on filedocumented in this encounter Care Teams Dobby Loom Chain Pegger Relationship Specialty Start Date End Date Enmanuel Gan MD [address] INTERNAL MEDICINE [place], [place] [id number] PCP - General Internal Medicine 04/26/20 Tg Houston MD [address] [place] [address] Consulting Physician Cardiology 07/18/20 Guerrero Hunter DPT [address] [facility] [address] [place] [address] Physical Therapist Physical Therapy 11/08/20 Guerrero Weiner, WATER MAIN INSTALLER HELPER [address] [facility] [address] [place] [address] Auto Claim Representative Physical Therapy 12/12/20 documented as of this encounter
--- OUTSIDE RECORDS SUMMARY | 2024-07-12 08:47 | XMS_ITS | Encounter Summary ---
Author Organization [facility] Address [address] [place] [address] Phone Care Team Providers Care Cinder Pitman Name Role Phone Enmanuel Gan MD Primary Care Provider Tg Houston MD Unavailable Guerrero Hunter DPT Unavailable [phone] Guerrero Weiner HOSPICE DIRECTOR Unavailable [phone] Reason for Referral * Diagnostic Imaging (Routine) - Closed Specialty Diagnoses / Procedures Referred By Contac t Referred To Contact Diagnoses Right hip pain Procedures XR Hip w/ Pelvis low ortho ap pelvis/ cross table lateral Gagan An MD [address] [place] [address] [address] [place] [address] Phone: tel: fax: [facility] [address] [place] [address] Referral ID Status Reason Start Date Expiration Date Visits Re quested Visits Authorized [id number] Closed 04/03/2022 05/03/2023 1 1 Encounter Details Date Type Department Care Team (Late st Contact Info) Description 04/03/2022 Orders Only [facility] Orthopaedic Surgery [address] [place] [address] Medical Office Building [address] [place] [address] Gagan An MD [address] [place] [address] Right hip pain (Primary Dx) Social History Tobacco Use Types [...] on file 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 Gender Identity Not on file Sexual Orientation Lesbian 05/24/2019 9: 06 AM CDT documented as of this encounter Plan of Treatment Not on file documented as of this encounter Results * XR Hip w/ [...] this encounter Visit Diagnoses Diagnosis Right hip pain- Primary Pain in joint, pelvic region and thigh Right hip pain Pain in joint, pelvic region and thigh documented in this encounter Care Teams Cinder Pitman Relationship Specialty Start Date End Date Enmanuel Gan MD [address] [place] [address] PCP - General Internal Medicine 04/26/20 Tg Houston MD [address] [facility] [address] [place] [address] Consulting Physician Cardiology 07/18/20 Guerrero Hunter DPT [address] [facility] [address] [facility] [place] [address] Physical Therapist Physical Therapy 11/08/20 Guerrero Weiner [facility] [address] [place], [place] [id number] Technical Professional Physical Therapy 12/12/20 documented as of this encounter
--- OUTSIDE RECORDS SUMMARY | 2024-07-12 08:47 | XMS_ITS | Encounter Summary ---
Author Organization [facility] Medical Group Address [address] [address] Care Team Providers Care Data Technician Name Role Phone Enmanuel Gan MD Primary Care Provider [phone] Tg Houston MD Unavailable [phone] Guerrero Hunter DPT Unavailable [phone] Guerrero Weiner INSURANCE CLAIMS PROCESSOR Unavailable [phone] Reason for Visit * Cardiology (Routine) - Closed Specialty Diagnoses / Procedures Referred By Gigi t Referred To Contact Diagnoses NICM (nonischemic cardiomyopathy) (CMS/HCC) (HCC) Procedures DEVICE CHECK - IN OFFICE Ashvin Recio III, MD Phone: tel: fax: [facility] Medical Group Referral ID Status Reason Start Date Expiration Date Visits Re quested Visits Authorized [id number] Closed 07/18/2021 08/17/2022 1 1 Encounter Details Date Type Department Care Team (Latest Contact Info) Description 03/24/2022 1:30 PM CDT Ancillary Procedure [facility] [address] [facility] [address], [place] [id number] ICD (implantable cardioverter-defibr illator), dual, in situ [...] on file 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 This patient received a Ecker[employer] scientific ICD. ??They had a routine Ecker[employer] scientific in office device interrogation on 03/24/2022. Device implant indications: ??Nonischemic cardiomyopathy, Mobitz type II, NSVT ?? Interrogation of the patient? s device demonstrates the following: Presenting EGM: ??A sense V sense @ 68 bpm Lead Measurements Right Atrium Right Ventricle Sensitivity (mV) 8.9 mV >25 mV Impedence (Ohms) 561 ohms 504 ohms High Voltage Impedence ??80 ohms Pace Threshold 0.7 V @ 0.4 ms 0.7 V @ 0.4 ms Pacing % 3 % <1 % Battery Status: ??10.5 years to YURIDIA with Charge Time 9.7 seconds Episodes last 90 days/Comments: AF Dubach <0.1%, there were 3 stored events classified as ATR with all EGMs reviewed showing 1-1 tachy for brief duration. There was 1 stored event classified as nonsustained ventricular events showing 2 seconds of a 1-1 tachy. NORMAL DEVICE FUNCTION PROGRAMMED Medications - Anti-coagulant(s): ??Eliquis 5 mg twice daily Anti-arrhythmic(s): ??Diltiazem 180 mg daily Plan: 1) normal Eckerty scientific ICD evaluation. 2) [employer]cker[employer] scientific remote transmission scheduled in 3 months. Srikanth David R.N. with Brooklynn Self R.N. Result [facility] Ashvin Recio III, MD CV CARDIAC SERVICES PROCEDURES Final Result documented in this encounter Visit Diagnoses Diagnosis ICD (implantable cardioverter-defibrillator), dual, in situ- Primary NICM (nonischemic cardiomyopathy) (CMS/HCC) (HCC) documented in this encounter Care Teams Data Technician Relationship Specialty Start Date End Date Enmanuel Gan MD [address] [place] [address] PCP - General Internal Medicine 04/26/20 Tg Houston MD [address] [facility] [address] [place] [address] Consulting Physician Cardiology 07/18/20 Guerrero Hunter DPT [address] [facility] [address] [place], [place] [id number] Physical Therapist Physical Therapy 11/08/20 Guerrero Weiner, [facility] [address] [facility] [address] [place] [address] Domestic Technician Physical Therapy 12/12/20 documented as of this encounter
--- OUTSIDE RECORDS SUMMARY | 2024-07-12 08:47 | XMS_ITS | Encounter Summary ---
Author Organization [facility] Address [address] [place] [address] Phone Care Team Providers Care Brick Wheeler Name Role Phone Enmanuel Gan MD Primary Care Provider [phone] Tg Houston MD Unavailable [phone] Guerrero Hunter DPT Unavailable [phone] Guerrero Weiner GRID MAKER Unavailable [phone] Reason for Visit * Reason Comments Hearing Aid Drop-off * Consultation (Routine) - Closed Specialty Diagnoses / Procedures Referred By Contwolfgang orosco Referred To Contact Audiology Diagnoses Sensorineural hearing loss, bilateral Enmanuel Gan MD [address] [facility] [address] [place] [address] Phone: tel: fax: [facility] (All Locations) Referral ID Status Reason Start Date Expiration Date V isits Requested Visits Authorized [id number] Closed Specialty Services Required 01/30/2021 2022 99 99 Encounter Details Date Type Department Care Team (Late st Contact Info) Description 12/20/2021 12:15 PM CDT Procedure visit [facility] Otolaryngology [address] [facility] 11th [place] [address] [place] [id number] Iwona Davis Au.D. 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 - 12/20/2021 12:15 PM CDT Procedures Patient walked in to drop off her right hearing aid as it is . She was seen and reported she has tried changing the wax guard and replacing the battery, but the aid remains . Upon inspection the fire crew specialist wire was torn by the speaker. A new M2R fire crew specialist wire was placed on the device and the hearing aid began working once again. Patient reported she is interested in discussing a new device for her right ear which would be compatible with her left cochlear implant. Patient was told the company would be [employer]. As she already had an appointment with me scheduled for next week for a hearing aid check, we will instead discuss the new aid in detail. She was pleased with this plan. documented in this encounter Plan of Treatment Not on file documented as of this encounter Visit Diagnoses Diagnosis SNHL (sensory-neural hearing loss), asymmetrical- Primary Sensorineural hearing loss, asymmetrical documented in this encounter Care Teams Brick Wheeler Relationship Specialty Start Date End Date Enmanuel Gan MD [address] [facility] [address] [place] [address] PCP - General Internal Medicine 04/26/20 Tg Houston MD [address] [facility] [address] [place] [address] Consulting Physician Cardiology 07/18/20 Guerreor Hunter DPT [address] [facility] [address] [facility] [place] [address] Physical Therapist Physical Therapy 11/08/20 Guerrero Weiner, [facility] [address] [place] [address] [place]ite [employer] Paver Physical Therapy 12/12/20 documented as of this encounter
--- OUTSIDE RECORDS SUMMARY | 2024-07-12 08:47 | XMS_ITS | Encounter Summary ---
Author Organization [facility] Healthcare Address [address] [place] [address] Care Team Providers Care Resaw Carriage Operator Name Role Phone Enmanuel Gan MD Primary Care Provider [phone] Tg Houston MD Unavailable [phone] Guerrero Hunter DPT Unavailable [phone] Guerrero Weiner ZINC PLATE GRAINER Unavailable [phone] Reason for Referral * Diagnostic Imaging (Routine) - Closed Specialty Diagnoses / Procedures Referred By Contac t Referred To Contact Diagnoses Fusion of spine of lumbar region Procedures XR Scoliosis 6 or More Views Jeremy Michelle MD [address] [place] [address] Phone: tel: fax: [facility] [address] [place] [address] Referral ID Status Reason Start Date Expiration Date Visits Re quested Visits Authorized [id number] Closed 01/20/2022 02/19/2023 1 1 Reason for Visit * Diagnostic Imaging (Routine) - Closed Specialty Diagnoses / Procedures Referred By Contac t Referred To Contact Diagnoses Fusion of spine of lumbar region Procedures XR Scoliosis 6 or More Views Jeremy Michelle MD [address] [place] [address] Phone: tel: fax: [facility] 1 [facility] [place] [address] Referral ID Status Reason Start Date Expiration Date Visits Re quested Visits Authorized [id number] Closed 01/20/2022 02/19/2023 1 1 Encounter Details Date Type Department Care Team (Latest Contact Info) Description 01/21/2022 9:40 AM CDT - 01/21/2022 11:59 PM CDT Hospital Encounter [facility] [address] [place] [address] Fusion of spine of lumbar region Discharge [...] attend chur ch or adventist services? 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 Gender Identity Not on file Sexual Orientation Lesbian 05/24/2019 9: 06 AM CDT documented as of this encounter Medications at Time of Discharge atorvastatin (LIPITOR) 20 mg tabletIndications: hyperlipidemia Take 1 tablet (20 mg total) by mouth nightly 07/29/2018 ALPRAZolam (XANAX) 0.25 mg tablet Take 1 tablet (0.25 mg total) by mouth nightly as needed for anxiety 30 tablet 11/18/2021 2 azelastine (ASTELIN) 137 mcg (0.1 %) [...] capsule (180 mg total) by mouth daily 30 capsule 11 01/07/[address] (CYMBALTA) 30 mg capsuleIndications [...] day in each nostril 0 06/15/2012 4 magnesium citrate 100 mg tabletIndications: hypomagnesemia Take 1 tablet by mouth every morning 4 potassium chloride ER 20 mEq CR tabletIndications: [...] VIEWS Schedule Routine, Read Routine (OP Routine) 01/21/2022 10:04 AM CDT Fusion of spine of lumbar region documented in this encounter Results * XR Scoliosis 6 or More Views (01/21/2022 10:04 AM CDT) Anatomical Region Laterality Modality Spine N/A Computed Radiogr aphy 01/21/2022 10:4 1 AM CDT Impressions 01/21/2022 10:41 AM CDT 1. Unchanged posterior decompression and revision instrumented spinal fusion from L1 through L4 with lucency surrounding the L1 pedicle screws and combined discectomies and instrumented anterior fusion from L2 to S1. Electronically signed by: Izaiah Rey M.D. Narrative 01/21/2022 10:41 AM CDT EXAM: 1. ??XR SCOLIOSIS ??6 OR MORE VIEWS HISTORY: Lumbar fusion COMPARISON: Radiographs 07/23/2021 FINDINGS: 7 radiographs of lumbar spine and standing AP and lateral views of the spine using EOS system is submitted for interpretation. Unchanged posterior decompression of the lumbar spine with revision posterior instrumented spinal fusion from L1 to L4, noninstrumented posterior spinal fusion from L4 to S1 with combined discectomies and instrumented anterior fusion from L2 to S1. Instrumentation is intact. Unchanged lucency surrounding the bilateral L1 pedicle screws. No abnormal motion with flexion or extension. No acute compression fractures of the lumbar spine. Neutral coronal and sagittal balance. Minimal right higher than left pelvic obliquity. There is a left chest wall cardiac pacemaker/defibrillator, right upper abdomen surgical clips and bilateral hip arthroplasties present. Procedure Note Izaiah Rey MD - 01/21/2022 EXAM: 1. XR SCOLIOSIS 6 OR MORE VIEWS HISTORY: Lumbar fusion COMPARISON: Radiographs 07/23/2021 FINDINGS: 7 radiographs of lumbar spine and standing AP and lateral views of the spine using EOS system is submitted for interpretation. Unchanged posterior decompression of the lumbar spine with revision posterior instrumented spinal fusion from L1 to L4, noninstrumented posterior spinal fusion from L4 to S1 with combined discectomies and instrumented anterior fusion from L2 to S1. Instrumentation is intact. Unchanged lucency surrounding the bilateral L1 pedicle screws. No abnormal motion with flexion or extension. No acute compression fractures of the lumbar spine. Neutral coronal and sagittal balance. Minimal right higher than left pelvic obliquity. There is a left chest wall cardiac pacemaker/defibrillator, right upper abdomen surgical clips and bilateral hip arthroplasties present. IMPRESSION: 1. Unchanged posterior decompression and revision instrumented spinal fusion from L1 through L4 with lucency surrounding the L1 pedicle screws and combined discectomies and instrumented anterior fusion from L2 to S1. Electronically signed by: Izaiah Rey M.D. Jeremy Michelle MD IMG XR PROCEDURES Fi nal Result documented in this encounter Visit Diagnoses Diagnosis Fusion of spine of lumbar region documented in this encounter Care Teams Resaw Carriage Operator Relationship Specialty Start Date End Date Enmanuel Gan MD [address] [place] [address] PCP - General Internal Medicine 04/26/20 Tg Houston MD [address] [place] [address] Consulting Physician Cardiology 07/18/20 Guerrero Hunter DPT [address] [facility] [address] [facility] [place] [address] Physical Therapist Physical Therapy 11/08/20 Guerrero Weiner [facility] [id number] [place] [address] Computer Systems Hardware Analyst Physical Therapy 12/12/20 documented as of this encounter
--- OUTSIDE RECORDS SUMMARY | 2024-07-12 08:47 | XMS_ITS | Encounter Summary ---
Author Organization [facility] Address [address] [place] [address] Phone Care Team Providers Care Metal Work Duct Installer Name Role Phone Enmanuel Gan MD Primary Care Provider [phone] Tg Houston MD Unavailable [phone] Guerrero Hunter DPT Unavailable [phone] Guerrero Weiner PROFILING MACHINE SET UP OPERATOR Unavailable [phone] Reason for Referral * Durable Medical Equipment (Routine) - Closed Specialty Diagnoses / Procedures Referred By Gigi t Referred To Contact Diagnoses Right hip pain Procedures Miscellaneous DME Gagan An MD [address] [place] [address] Phone: tel: fax: External Order Referral ID Status Reason Start Date Expiration Date Visits Re quested Visits Authorized [id number] Closed 05/07/2022 06/06/2023 1 1 * Diagnostic Imaging (Routine) - Closed Specialty Diagnoses / Procedures Referred By Gigi t Referred To Contact Diagnoses History of bilateral total hip arthroplasty Procedures XR Hip Right 2 or 3 Views W Pelvis Gagan An MD [address] [place] [address] Phone: tel: fax: [facility] Radiology [address] [place] [address] [address] [place] [address] Phone: tel: Referral ID Status Reason Start Date Expiration Date Visits Re quested Visits Authorized [id number] Closed 05/02/2022 06/01/2023 1 1 Reason for Visit * Reason Comments Pain * Consultation (Routine) - Closed Specialty Diagnoses / Procedures Referred By Contac t Referred To Contact Orthopedic Surgery Diagnoses Right hip pain Enmanuel Gan MD [address] [facility] [address] [facility] [address] [place] [address] Phone: tel: fax: [facility] (All Locations) Referral ID Status Reason Start Date Expiration Date V isits Requested Visits Authorized [id number] Closed Specialty Services Required 05/02/2022 06/01/2023 1 1 Encounter Details Date Type Department Care Team (Latest Contact Info) Description 05/07/2022 4:00 PM CDT Office Visit [facility] Orthopaedic Surgery [address] [place] [address] Medical Office Building [address] [place] [address] Gagan An MD [facility] [address] [place] [address] History of bilateral total hip arthroplasty (Primary Dx); Right hip pain Social History Tobacco Use Types Packs/Day [...] How often do you attend chur or episcopalian services? Never 07/30/2020 Do you [...] on file Legal Sex Female 9:09 PM ASSEMBLER FOR PULLER OVER MACHINE Gender Identity Not on file Sexual Orientation Lesbian 05/24/2019 9: 06 AM CDT documented as of this encounter Progress Notes * Gagan An MD - 05/07/2022 4:00 PM CDT Images from the original note were not included. RETURN PATIENT VISIT INTERIM HISTORY: Macie Briseno is status post right right total hip replacement in 2014. Patient reports that sheis had 2 dislocation events in the past month. First dislocation occurred when she slipped in the bathroom floor. The 2nd occurred when she was on a trip in [place] when she was bending over attempted to tie her shoes and her hip dislocated. Her hip was successfully reduced at a local orthopedist office in her [place]. She presents today for evaluation Patient seen today for routine follow up and is doing well. PHYSICAL EXAM: Height: Weight: BMI: There is no height or weight on file to calculate BMI. Right Hip Hip Pain is noted: Mild tenderness posteriorly over the hip Skin Status: Previous incision healed Trendelenberg: Negative Range of Motion: Start of flexion: 0 End of flexion: 100 Abduction: 30 Adduction: 20 ERE: 40 IGLESIA: 20 Deformity: No deformity noted Leg Length Discrepancy: None Neurovascular status: intact Abductor Strength: 5/5 Pulses Intact: Yes Dependent Edema: No Neurological Status Intact: Yes REVIEW OF XRAYS/STUDIES: Radiographs ordered and reviewed. Shows components are well positioned without any signs of loosening or failure. DX: Macie Briseno is a 76 y.o. female status post right total hip replacement 7 years ago. She is had 2 dislocation events in the past month TREATMENT PLAN: Given her recent dislocations we will protect the hip in abduction brace for the next 2 months. Sheis instructed to wear this brace with activity she may remove the brace and sleep with a pillow between her legs at night. We will have her follow-up in 2 months for evaluation Gagan Peacock MD ATTENDING ATTESTATION I was present for the critical portion of the history, physical examination and participated in theradiographic review and medical decision making on this patient. I agree with the findings in the report of the above resident/fellow dictating using [employer] software. Gagan An MD MBLER FOR PULLER OVER MACHINE documented in this encounter Plan of Treatment Not on file documented as of this encounter Results * XR Hip Right 2 or 3 Views W Pelvis (07/09/2022 1:46 PM ASSEMBLER FOR PULLER OVER MACHINE) Anatomical Region Laterality Modality Lower Extremities, Hip, Pelvis Right C omputed Radiography 07/09/2022 2:48 PM ASSEMBLER FOR PULLER OVER MACHINE Impressions 07/09/2022 5:18 PM ASSEMBLER FOR PULLER OVER MACHINE Interval reduction of right total hip arthroplasty dislocation. Dictated by: Rylan Hussein MD PHD The radiology attending physician has personally reviewed this study, and had reviewed and/or edited this written report and agrees with it. Electronically signed by: Shiv Calderon MD Narrative 07/09/2022 5:18 PM ASSEMBLER FOR PULLER OVER MACHINE EXAMINATION: XR HIP RIGHT 2 OR 3 [...] Pain in joint, pelvic region and thigh History of bilateral total hip arthroplasty documented in this encounter Historical Medications * This list may reflect changes made after this encounter. cefdinir (OMNICEF) 300 mg capsule Take 300 mg by mouth every 12 (twelve) hours 04/14/2022 07/01/2022 added in this encounter Orders General Supply Count Last Ordered Date First Or dered Date MISCELLANEOUS DME 1 05/07/2022 Outpatient Referral Count Last Ordered Date Fir st Ordered Date AMB REFERRAL TO ORTHOPEDIC SURGERY 1 2021 documented in this encounter Care Teams Metal Work Duct Installer Relationship Specialty Start Date End Date Enmanuel Gan MD [address] [facility] [address] [place] [address] PCP - General Internal Medicine 04/26/20 Tg Houston MD [address] [place] [address] Consulting Physician Cardiology 07/18/20 Guerrero Hunter DPT [address] [facility] [address] [facility] [place], [place] [id number] Physical Therapist Physical Therapy 11/08/20 Guerrero Weiner, PROFILING MACHINE SET UP OPERATOR [address] [place] [address] Home Health Scheduler Physical Therapy 12/12/20 documented as of this encounter
--- OUTSIDE RECORDS SUMMARY | 2024-07-12 08:47 | XMS_ITS | Encounter Summary ---
Author Organization [facility] Healthcare Address [address] [place] [address] Care Team Providers Care Machine I Trimmer Name Role Phone Enmanuel Gan MD Primary Care Provider [phone] Tg Houston MD Unavailable [phone] Guerrero Hunter DPT Unavailable [phone] Guerrero Weiner AERONAUTICAL ENGINEERING TECHNOLOGIST Unavailable [phone] Reason for Referral * MRI/CAT/PET Scan (Routine) - Closed Specialty Diagnoses / Procedures Referred By Contac t Referred To Contact Radiology Diagnoses Fusion of spine of lumbar region Procedures CT Lumbar Spine WO Contrast Jeremy Michelle MD [address] [place] [address] Phone: tel: fax: [facility] [address] [place] [address] Referral ID Status Reason Start Date Expiration Date Visits Re quested Visits Authorized [id number] Closed 01/21/2022 02/20/2023 1 1 TRACK BETTING MANAGER Reason for Visit * MRI/CAT/PET Scan (Routine) - Closed Specialty Diagnoses / Procedures Referred By Contac t Referred To Contact Radiology Diagnoses Fusion of spine of lumbar region Procedures CT Lumbar Spine WO Contrast Jeremy Michelle MD [address] [facility] [place] [address] Phone: tel: fax: [facility] 1 [facility] [place] [address] Referral ID Status Reason Start Date Expiration Date Visits Re quested Visits Authorized [id number] Closed 01/21/2022 02/20/2023 1 1 Encounter Details Date Type Department Care Team (Latest Contact Info) Description 07/08/2022 9:31 AM OFF TRACK BETTING MANAGER - 07/08/2022 11:59 PM OFF TRACK BETTING MANAGER Hospital Encounter [facility] Radiology [facility] [address] [place] [address] Jeremy Michelle MD [address] [facility] [place] [address] Fusion of spine of lumbar region Discharge [...] on file Legal Sex Female 9:09 PM OFF TRACK BETTING MANAGER Gender Identity Not on file Sexual [...] CONTRAST Schedule Routine, Read Routine (OP Routine) 07/08/2022 10:04 AM OFF TRACK BETTING MANAGER Fusion of spine of lumbar region documented in this encounter Results * CT Lumbar Spine WO Contrast (07/08/2022 10:04 AM OFF TRACK BETTING MANAGER) Anatomical Region Laterality Modality Spine N/A Computed Tomogra phy 07/08/2022 1:41 PM OFF TRACK BETTING MANAGER Impressions 07/08/2022 2:28 PM OFF TRACK BETTING MANAGER 1. ??Postoperative changes of revised posterior instrumented fusion of the lumbar spine with unchanged lucency around L1 vertebral body pedicle screws, concerning for screw loosening. 2. ??Multilevel degenerative disc disease of the lumbar spine, similar to CT 08/06/2021, as described in detail above. Dictated by: Alecia Garg MD, MPH The radiology attending physician has personally reviewed this study, and had reviewed and/or edited this written report and agrees with it. Electronically signed by: Jorge Ritter M.D. Narrative 07/08/2022 2:28 PM OFF TRACK BETTING MANAGER EXAMINATION: CT of the lumbar spine without contrast HISTORY: 76-year-old female with posterior spinal instrumentation and fusion of L1-L4. TECHNIQUE: CT of the lumbar spine was performed according to standard protocol without intravenous contrast. COMPARISON: None available. FINDINGS: Redemonstrated postsurgical changes of revised L1-L4 posterior spinal instrumented fusion with combined interbody fusion of L2-S1. Partial osseous fusion of L2-S1 with bony bridging. There are changes of prior laminectomies from L1-L5. Fusion of posterior elements from L4-S1. There are unchanged lucencies surrounding the bilateral L1 pedicle screws. Anterolisthesis of L3-l4 and L4-L5. There is no acute fracture. The vertebral bodies are normal in height without compression fractures. The intervertebral disk heights are normal. There is no soft tissue abnormality. ?? L1-L2: Minimal disc bulge. There is moderate bilateral neuroforaminal stenosis. There is no spinal canal stenosis. L2-L3: There is residual central disc extrusion measuring 7 x 7 mm. There is mild right, severe left neuroforaminal stenosis. There is no spinal canal stenosis. L3-L4: There is no neuroforaminal stenosis. There is no spinal canal stenosis. L4-L5: There is no neuroforaminal stenosis. There is no spinal canal stenosis. L5-S1: There is moderate right, mild left neuroforaminal stenosis. There is no spinal canal stenosis. Partially visualized bilateral hip arthroplasties. Atherosclerotic calcifications of the aorta. ?? Procedure Note Jorge Ritter MD PhD - 07/08/2022 EXAMINATION: CT of the lumbar spine without contrast HISTORY: 76-year-old female with posterior spinal instrumentation and fusion of L1-L4. TECHNIQUE: CT of the lumbar spine was performed according to standard protocol without intravenous contrast. COMPARISON: None available. FINDINGS: Redemonstrated postsurgical changes of revised L1-L4 posterior spinal instrumented fusion with combined interbody fusion of L2-S1. Partial osseous fusion of L2-S1 with bony bridging. There are changes of prior laminectomies from L1-L5. Fusion of posterior elements from L4-S1. There are unchanged lucencies surrounding the bilateral L1 pedicle screws. Anterolisthesis of L3-l4 and L4-L5. There is no acute fracture. The vertebral bodies are normal in height without compression fractures. The intervertebral disk heights are normal. There is no soft tissue abnormality. L1-L2: Minimal disc bulge. There is moderate bilateral neuroforaminal stenosis. There is no spinal canal stenosis. L2-L3: There is residual central disc extrusion measuring 7 x 7 mm. There is mild right, severe left neuroforaminal stenosis. There is no spinal canal stenosis. L3-L4: There is no neuroforaminal stenosis. There is no spinal canal stenosis. L4-L5: There is no neuroforaminal stenosis. There is no spinal canal stenosis. L5-S1: There is moderate right, mild left neuroforaminal stenosis. There is no spinal canal stenosis. Partially visualized bilateral hip arthroplasties. Atherosclerotic calcifications of the aorta. IMPRESSION: 1. Postoperative changes of revised posterior instrumented fusion of the lumbar spine with unchanged lucency around L1 vertebral body pedicle screws, concerning for screw loosening. 2. Multilevel degenerative disc disease of the lumbar spine, similar to CT 08/06/2021, as described in detail above. Dictated by: Alecia Garg MD, MPH The radiology attending physician has personally reviewed this study, and had reviewed and/or edited this written report and agrees with it. Electronically signed by: Jorge Ritter M.D. Jeremy Michelle MD IMG CT PROCEDURES Fi nal Result documented in this encounter Visit Diagnoses Diagnosis Fusion of spine of lumbar region documented in this encounter Care Teams Machine I Trimmer Relationship Specialty Start Date End Date Enmanuel Gan MD [address] [place] [address] PCP - General Internal Medicine 04/26/20 Tg Houston MD [address] [place] [address] Consulting Physician Cardiology 07/18/20 Guerrero Hunter DPT [address] [facility] [address] [facility] [place], [place] [id number] Physical Therapist Physical Therapy 11/08/20 Guerrero Weiner, AERONAUTICAL ENGINEERING TECHNOLOGIST [address] [facility] [address] [place], [place] [id number] Net Developer With [employer] Physical Therapy 12/12/20 documented as of this encounter
--- OUTSIDE RECORDS SUMMARY | 2024-07-12 08:47 | XMS_ITS | Encounter Summary ---
Author Organization [facility] Address [address] [facility] [address] [place] [address] Care Team Providers Care Unishear Operator Name Role Phone Enmanuel Gan MD Primary Care Provider [phone] Tg Houston MD Unavailable [phone] Guerrero Hunter DPT Unavailable [phone] Guerrero Weiner TRUSS BUILDER Unavailable [phone] Encounter Details Date Type Department Care Team (Late st Contact Info) Description 07/02/2022 Telephone [facility] Cardiology [address] [facility] [address] [place] [address] Lucia Mcmahan NP [address] [facility] [address] [place] [address] Social History Tobacco Use Types [...] 07/30/2020 How often do you attend [facility] or rastafari services? Never 07/30/2020 Do you [...] on file Legal Sex Female 9:09 PM CLOTHING TRADES WORKERS Gender Identity Not on file Sexual Orientation Lesbian 05/24/2019 9: 06 AM CDT documented as of this encounter Miscellaneous Notes * Telephone Encounter - Amy Velásquez MA - 07/02/2022 8:56 AM CST Spoke with patient and scheduled her echo for 07/15/2022 @ 2:30. I gave her verbal instructions andmailed. HING TRADES WORKERS documented in this encounter Plan of Treatment Not on file documented as of this encounter Visit Diagnoses Not on filedocumented in this encounter Care Teams Unishear Operator Relationship Specialty Start Date End Date Enmanuel Gan MD [address] [facility] [address] [facility] [address] [place] [address] PCP - General Internal Medicine 04/26/20 Tg Houston MD [address] [place] [address] Consulting Physician Cardiology 07/18/20 Guerrero Hunter DPT [address] [facility] [address] [id number] Physical Therapist Physical Therapy 11/08/[address] [facility] [address] [place] [address] Loss Prevention Investigator Physical Therapy 12/12/20 documented as of this encounter
--- OUTSIDE RECORDS SUMMARY | 2024-07-12 08:47 | XMS_ITS | Encounter Summary ---
Author Organization [facility] Address [address] [place] [address] Care Team Providers Care Data Quality Consultant Name Role Phone Enmanuel Gan MD Primary Care Provider [phone] Tg Houston MD Unavailable [phone] Guerrero Hunter DPT Unavailable [phone] Guerrero Weiner JACQUARD LOOM CARD CHANGER Unavailable [phone] Encounter Details Date Type Department Care Team (Late st Contact Info) Description 06/24/2022 Telephone [facility] Cardiology [address] [place] [address] Cam Tejeda MD [address] [facility] [address] [place] [address] Social History Tobacco Use Types [...] week 07/30/2020 How often do you attend [facility] or [facility] services? Never 07/30/2020 Do [...] on file Legal Sex Female 9:09 PM BILINGUAL ADMINISTRATIVE ASSISTANT Gender Identity Not on file Sexual Orientation Lesbian 05/24/2019 9: 06 AM CDT documented as of this encounter Miscellaneous Notes * Telephone Encounter - Heather Avilez - 06/25/2022 9:07 AM CST Scheduled apt and LM for pt with this information NGUAL ADMINISTRATIVE ASSISTANT * Telephone Encounter - Cam Tejeda MD - 06/24/2022 4:29 PM BILINGUAL ADMINISTRATIVE ASSISTANT Yes please place her at 9:30 a.m. on ThursdayJuly 01 NGUAL ADMINISTRATIVE ASSISTANT * Telephone Encounter - Heather Avilez - 06/24/2022 11:18 AM CST Pt called in to r/s her 1 year follow up and device check originally scheduled [place] with you form 07/22. Pt states she is having sxs of SOB and hard time walking up the stairs without being winded. Upon reviewing your schedule you are full until July. Is it possible to put pt on a held slot next week? Please advise how you would like for me to proceed. Thank you! NGUAL ADMINISTRATIVE ASSISTANT documented in this encounter Plan of Treatment Not on file documented as of this encounter Visit Diagnoses Not on filedocumented in this encounter Care Teams Data Quality Consultant Relationship Specialty Start Date End Date Enmanuel Gan MD [address] [facility] [address] INTERNAL MEDICINE [place], [place] [id number] PCP - General Internal Medicine 04/26/20 Tg Houston MD [address] [place] [address] Consulting Physician Cardiology 07/18/20 Guerrero Hunter DPT [address] [facility] [place] [address] [facility] [place] [address] Physical Therapist Physical Therapy 11/08/20 Guerrero Weiner, [facility] [address] [facility] [address] [place] [address] Occupational Health Nursing Director Physical Therapy 12/12/20 documented as of this encounter
--- OUTSIDE RECORDS SUMMARY | 2024-07-12 08:47 | XMS_ITS | Encounter Summary ---
Author Organization [facility] Address [address] [place] [address] Phone Care Team Providers Care Health Care Marketing Specialist Name Role Phone Enmanuel Gan MD Primary Care Provider [phone] Tg Houston MD Unavailable [phone] Guerrero Hunter DPT Unavailable [phone] Guerrero Weiner WOOD MILLING MACHINE OPERATOR Unavailable [phone] Reason for Visit * Consultation (Routine) - Closed Specialty Diagnoses / Procedures Referred By Contac t Referred To Contact Audiology Diagnoses Sensorineural hearing loss, bilateral Enmanuel Gan MD [address] [facility] [address] [place] [address] Phone: tel: fax: [facility] (All Locations) Referral ID Status Reason Start Date Expiration Date V isits Requested Visits Authorized [id number] Closed Specialty Services Required 01/30/2021 2022 99 99 Encounter Details Date Type Department Care Team (Latest Contact Info) Description 01/14/2022 10:00 AM CDT Procedure visit [facility] Otolaryngology [address] [facility] 11[address] [place] [address] [place] [address] Norma Oliveira Au.D. [address] [place] [address] Sensorineural hearing loss, bilateral (Primary Dx) Social [...] any clubs o r organizations such as scientology groups, unions, fraternal or athletic groups, or [...] on file Legal Sex Female 9:09 PM TOBACCO CLOTH RECLAIMER Gender Identity Not on file Sexual Orientation Lesbian 05/24/2019 9: 06 AM CDT documented as of this encounter Procedure Notes * Norma Oliveira Au.D. - 01/14/2022 10:00 AM CDT Procedures Cochlear Implant (Active) L/R/Bilateral left Freezer Assistant [employer] Internal CI632 External Kanso 2/dunlap/3(I) Provider Navneet Date of CI surgery 06/19/20 Date of IS 07/09/20 MAPS in Processor: SCAN+all IP, 1200 ALLEGRA V6, S12 P1: Map 13 ?? COUCH(RE): Widex YURI, outside provider SERVICES PROVIDED:??18??Month Evaluation of auditory function, post-CI??(Time??10:05-10:45 AM) and Subsequent??Programming ?? PROCEDURES: The patient attended the session??alone. ??She reports: - hearing ok with her speech processor - wearing P1,V7,S12 (Map 13) - still considering a ReSound hearing aid for her left ear; is looking into providers that accept her insurance ?? Evaluation: Testing was completed to assess the patient's current detection of sound and speech understanding and to compare to previous results. RE was plugged during CI only testing. ?? Patient was using: Kanso 2 P1, map 13, volume 7, sensitivity 12 ?? Sound field Thresholds ?? 250 218 450 8029 1500 2000 3000 4000 6000 Hz CI LE 20 26 22 22 18 16 24 24 14 dB HL ?? *() indicates results from the??previous evaluations ?? CNC Words @ 60 dB SPL: CI:LE?List: 9?Word Total:66% (84% ,68%)?Phoneme Total:??85% (91%, 75%) ?? AzBio Sentences @ 60 dB SPL: CI:LE?List: 10?Total: 92% (80%, 77%) ?? [employer]Bio Sentences @ 60 dB SPL+10 SNR MB: CI+COUCH?List: 11?Total: 69% (73%, 79%) ?? Aided soundfield thresholds were good and indicate good audibility for speech. Scores on words weredown slightly compared to when last tested but similar to previous testing. She scored slightly better on sentences in quiet and about the same on sentences in noise. Results of testing were discussed with the patient. Programming Programming was??completed to??optimize current map parameters and to ensure optimal settings.?See custom sound??software for details this date. ?? A head check was completed and was okay. ?? Impedances were measured and were??all okay??and stable. Dataloggin.3 hours/day ?? Patient's preferred map was opened: Map??13. C levels were swept and balanced; rated medium soft.?? Cs reswept after 50% sweep and then rated asmedium loud. T levels were swept??and balanced at??50%; rated very soft. Minimal changes were made to T and C levels. When live, together with COUCH, volume was comfortable and balanced- medium loud. Volume was set to 7. This was saved as Map 14 and??Program was loaded as indicated above. Battery estimate 19 hours ?? The patient did not bring her back up processor and therefore it could not be updated. It will be updated at patient's next visit, sooner if needed. Discussed need to link COUCH with CI in software once she obtains ReSound COUCH and then pair to cell phone. Also reminded patient that mini sherita and TV streamer can also be paired to CI + COUCH. Discussed communicating with Jj Patino for instruction on pairing bimodally if needed. ? IMPRESSIONS/PLAN: Return for??two year evaluation or sooner if needed Follow up with audiology regarding annual hearing evaluations and HAC documented in this encounter Plan of Treatment Not on file documented as of this encounter Visit Diagnoses Diagnosis Sensorineural hearing loss, bilateral- Primary documented in this encounter Orders Audiology Count Last Ordered Date First Orde red Date EVALUATION, COCHLEAR IMPLANT PROGRAMMING AND AUDITORY REHABILITATION 1 01/13/2022 documented in this encounter Care Teams Health Care Marketing Specialist Relationship Specialty Start Date End Date Enmanuel Gan MD [address] [place] [address] PCP - General Internal Medicine 04/26/20 Tg Houston MD [address] [place] [address] Consulting Physician Cardiology 07/18/20 Guerrero Hunter DPT [address] [facility] [address] [facility] [place], [place] [id number] Physical Therapist Physical Therapy 11/08/20 Guerrero Weiner, WOOD MILLING MACHINE OPERATOR [address] [facility] [address] [place] [address] Forestry Supervisor Physical Therapy 12/12/20 documented as of this encounter
--- OUTSIDE RECORDS SUMMARY | 2024-07-12 08:47 | XMS_ITS | Encounter Summary ---
Author Organization [facility] Address [address] [place] [address] Care Team Providers Care Manager Demand Name Role Phone Enmanuel Gan MD Primary Care Provider [phone] Tg Houston MD Unavailable [phone] Guerrero Hunter DPT Unavailable [phone] Guerrero Weiner SHOTWELD OPERATOR Unavailable [phone] Encounter Details Date Type Department Care Team (Late st Contact Info) Description 07/01/2022 11:00 AM PRESS OPERATOR HEAVY DUTY Lab [facility] Outpatient Lab [address] [place] [address] Apical variant hypertrophic cardiomyopathy (CMS/HCC) (HCC); SNIDER (dyspnea on exertion); Localized edema Social History Tobacco Use Types Packs/Day Years [...] on file Legal Sex Female 9:09 PM PRESS OPERATOR HEAVY DUTY Gender Identity Not on file Sexual Orientation Lesbian 05/24/2019 9: 06 AM CDT documented as of this encounter Plan of Treatment Not on file documented as of this encounter Procedures Procedure Name Priority Date/Time Associated Diagnosis Comments EGFR Routine 07/01/2022 11:08 AM PRESS OPERATOR HEAVY DUTY Apical variant hypertrophic cardiomyopathy (CMS/HCC) (HCC) SNIDER (dyspnea on exertion) Localized edema BASIC METABOLIC PANEL Routine 07/01/2022 11:08 AM PRESS OPERATOR HEAVY DUTY Apical variant hypertrophic cardiomyopathy (CMS/HCC) (HCC) SNIDER (dyspnea on exertion) Localized edema documented in this encounter Results * eGFR (07/01/2022 11:08 AM PRESS OPERATOR HEAVY DUTY) eGFR 84 mL/min/1. 73 m2 [facility] Comment: Interpretive Data Reference Interval Normal ?>/= [...] interpretive data was last reviewed 2021. Blood 07/01/2022 11:0 8 AM PRESS OPERATOR HEAVY DUTY 07/01/2022 11:31 AM PRESS OPERATOR HEAVY DUTY Lucia Mcmahan NP LAB BLOOD ORDERABLES F inal Result [facility] [address] Department [place] [address] * Basic metabolic panel (07/01/2022 11:08 AM PRESS OPERATOR HEAVY DUTY) Sodium 138 135 - 145 mmol/L [facility] Potassium, pl 4.1 3.3 - 4.9 mmol/L [facility] Chloride 103 97 - 110 mmol/L [facility] CO2 29 22 - 32 mmol/L [facility] Anion gap 6 2 - 15 mmol/L [facility] BUN 14 8 - 25 mg/dL [facility] Creatinine 0.74 0.60 - 1.10 mg/dL [facility] Glucose 94 70 - 199 mg/dL [facility] Comment: Interpretive Data Fasting glucose >/= 126 [...] classification and Diagnosis of Diabetes Diabetes Care 2017;40 (Suppl. 1):S11. Current interpretive data was last revised 2017. Calcium 9.6 8.5 - 10.3 mg/dL [facility] Blood 07/01/2022 11:0 8 AM PRESS OPERATOR HEAVY DUTY 07/01/2022 11:31 AM PRESS OPERATOR HEAVY DUTY Lucia Mcmahan NP LAB BLOOD ORDERABLES F inal Result [facility] [address] Department [place] [address] documented in this encounter Visit Diagnoses Diagnosis Apical variant hypertrophic cardiomyopathy (HCC) SNIDER (dyspnea on exertion) Other dyspnea and respiratory abnormality Localized edema Edema documented in this encounter Care Teams Manager Demand Relationship Specialty Start Date End Date Enmanuel Gan MD [address] INTER[address] MEDICINE [place], [place] [id number] PCP - General Internal Medicine 04/26/20 Tg Houston MD [address] [place] [address] Consulting Physician Cardiology 07/18/20 Guerrero Hunter DPT [address] [facility] [address] [place] [address] Physical Therapist Physical Therapy 11/08/20 Guerrero Weiner PTA [address] [facility] [address] [place] [address] Geochemical Laboratory Technician Physical Therapy 12/12/20 documented as of this encounter
--- OUTSIDE RECORDS SUMMARY | 2024-07-12 08:47 | XMS_ITS | Encounter Summary ---
Author Organization [facility] Address [address] [place] [address] Care Team Providers Care Marketing Technology Coordinator Name Role Phone Enmanuel Gan MD Primary Care Provider [phone] Tg Houston MD Unavailable [phone] Guerrero Hunter DPT Unavailable [phone] Guerrero Weiner DIE CASTING MACHINE OPERATOR Unavailable [phone] Reason for Referral * Hospital - Outpatient (Routine) - Closed Specialty Diagnoses / Procedures Referred By Gigi orosco Referred To Contact Diagnoses Apical variant hypertrophic cardiomyopathy (HCC) Procedures Transthoracic Echo Complete W Doppler/CF Ivy Willson NP Phone: tel: fax: [id number] [place] [address] Referral ID Status Reason Start Date Expiration Date Visits Re quested Visits Authorized [id number] Closed 12/17/2021 01/16/2023 1 1 Reason for Visit * Hospital - Outpatient (Routine) - Closed Specialty Diagnoses / Procedures Referred By Gigi orosco Referred To Contact Diagnoses Apical variant hypertrophic cardiomyopathy (HCC) Procedures Transthoracic Echo Complete W Doppler/CF Ivy Willson NP Phone: tel: fax: [facility] [address] [place] [address] Referral ID Status Reason Start Date Expiration Date Visits Re quested Visits Authorized [id number] Closed 12/17/2021 01/16/2023 1 1 Encounter Details Date Type Department Care Team (Latest Contact Info) Description 12/27/2021 2:55 PM CDT - 12/27/2021 11:59 PM CDT Hospital Encounter [facility] OP Cardiac Testing [address] [facility] [address] [place] [address] Apical variant hypertrophic cardiomyopathy (CMS/HCC) ([facility]) Discharge Disposition: Discharge to home or [...] on file Legal Sex Female 9:09 PM WEIGHT CALCULATOR Gender Identity Not on file Sexual Orientation Lesbian 05/24/2019 9: 06 AM CDT documented as of this encounter Medications at Time of Discharge atorvastatin (LIPITOR) 20 mg tabletIndications: hyperlipidemia Take 1 tablet (20 mg total) by mouth nightly 07/29/2018 ALPRAZolam (XANAX) 0.25 mg tablet Take 1 tablet (0.25 mg total) by mouth nightly as needed for anxiety 30 tablet 11/18/2021 2 amLODIPine (NORVASC) 5 mg tablet Take 5 mg by mouth daily 12/13/2021 2 calcium acetate,phosphat bind, (PHOSLO) 667 mg capsuleIndications :supplement Take 2 capsules (1,334 mg total) by mouth every morning [address] (CYMBALTA) 30 mg capsuleIndications :Anxiety [...] Comments TRANSTHORACIC ECHO (TTE) COMPLETE W DOPPLER/CF W CONTRAST Routine 12/27/2021 4:12 PM CDT Apical variant hypertrophic cardiomyopathy (CMS/HCC) (HCC) documented in this encounter Results * TRANSTHORACIC ECHO (TTE) COMPLETE W DOPPLER/CF W CONTRAST (12/27/2021 4:12 PM CDT) Anatomical Region Laterality Modality Ultrasound 12/27/2021 3:08 PM CDT Narrative 12/30/2021 7:50 AM CDT [address] [place] [address] ECHOCARDIOGRAM Patient Name: CITLALY BRISENO : 1945 Study Date: 12/27/2021 3:08:38 PM Gender: F Tech: UT Ref.Provider: IVY WILLSON Height(Cm): 163 BSA: 1.86 Weight(Kg): 76.2BP: 112/76 Order Provider: IVY WILLSON Procedures: Echocardiographic Report: Transthoracic Echocardiogram with 2D, M-Mode, Spectral and Color Flow Doppler examination and administration of intravenous contrast. Indications: Hypertrophic cardiomyopathy. Measurements: 2D/M Mode ? Doppler ? Measurement ?Value ?Normal Range ?Measurement ?Value ?Normal Range ? IVSd 2D ?1.41 ? [ 0.60 - 0.90 ] cm ?AV Peak Wagner ?1.0 ?[ 1.0 - 1.7 ] m/s ? LVIDd 2D ? 4.25 ? [ 3.90 - 5.30 ] cm ?AV Peak PG ? 4 ?[ 2 - 9 ] mmHg ? LVIDs 2D ? 3.01 ? [ 2.30 - 3.90 ] cm ?AV Mean PG ? 2 ?[ 2 - 4 ] mmHg ? LVPWd 2D ? 1.11 ? [ 0.60 - 1.00 ] cm ?AV VTI ? 20.6 ? cm ? Estimated EF ? 80.00 ?% ? MAT VTI ?2.9 ?[ 2.0 - 4.0 ] cm2 ? LA Dimension 2D ?3.60 ? [ 2.70 - 3.80 ] cm ?LVOT Peak Wagner ?0.94 ? [ 0.70 - 1.10 ] m/s ? AoR Diam 2D ?3.20 ? [ 2.60 - 3.70 ] cm ?LVOT Diam ?2.0 ?[ 1.7 - 2.1 ] cm ? TAPSE ?2.30 ? [ 1.60 - 3.00 ] cm ?LVOT Peak PG ? 4 ?[ 2 - 6 ] mmHg ?LVOT VTI ? 18.3 ? [ 20.0 - 30.0 ] cm ?MV Peak PG ? 2 ?[ 1 - 10 ] mmHg ?MV Mean PG ? 1 ?[ <= 5 ] mmHg ?MV E Peak Wagner ?0.5 ?[ 0.6 - 1.3 ] m/s ?MV A Peak Wagner ?0.8 ?[ 1.0 - 1.2 ] m/s ?MV PHT ? 61.7 ? [ 20.0 - 100.0 ] ms ?MV Decel Time ?210.1 ?[ 104.0 - 258.0 ] ms ?MVA PHT ?3.6 ?[ 2.0 - 4.0 ] ms ?MV E/A Ratio ? 0.6 ?PV Peak Wagner ?1.0 ?[ 0.4 - 0.8 ] m/s ?PV Peak PG ? 4 ?mmHg ?Lat E` Wagner ? 0.06 ? [ 0.10 - 0.15 ] m/s ?Sept E' Wagner ?0.06 ? [ 0.08 - 0.15 ] m/s ?E/E` ? 8.33 ?RV S' ?0.11 ? m/s ? - Findings: Study Quality: Technically difficult study. BP: Blood pressure: 112/76 mmHg. Left Ventricle: LV systolic function is hyperdynamic. Ejection Fraction is estimated at 80 %. There is at least grade I diastolic dysfunction (impaired myocardial relaxation). Redemonstration of thickened hyperdynamic LV apex consistent with apical variant hypertrophic cardiomyopathy. Mild asymmetric septal hypertrophy is present. There is no resting LVOT gradient. Right Ventricle: Normal right ventricular systolic function. Normal right ventricular size. Left Atrium: The left atrium is normal in size. Right Atrium: The right atrium is grossly normal in size. Atrial Septum: Atrial septum is not well visualized. Mitral Valve: Normal appearance of the mitral valve leaflets. There is no mitral regurgitation. Aortic Valve: Normal appearance of the aortic valve. Aortic valve appears tricuspid in configuration. There is no aortic stenosis. There is no aortic regurgitation. Tricuspid Valve: Grossly normal appearing tricuspid valve. Pulmonic Valve: Grossly normal appearing pulmonic valve. There is no pulmonic stenosis. Pericardium: No significant pericardial effusion. Aortic Root and Aorta: The sinuses of Valsalva are normal. Aortic Arch: Grossly normal aortic arch. IVC: Grossly normal appearance of the inferior vena cava. Conclusions: 1. LV systolic function is hyperdynamic. Ejection Fraction is estimated at 80 %. There is at least grade I diastolic dysfunction (impaired myocardial relaxation). Redemonstration of thickened hyperdynamic LV apex consistent with apical variant hypertrophic cardiomyopathy. Mild asymmetric septal hypertrophy is present. There is no resting LVOT gradient. 2. Normal right ventricular systolic function. Normal right ventricular size. 3. Grossly normal appearance of the inferior vena cava. 4. No significant valvular abnormalities. Electronically Signed By: Cam Tejeda MD [facility] 2021-12-30 07:50:13 CDT CC: CC: Procedure Note Cam Tejeda MD - 12/30/2021 [facility] [address] [place] [address] ECHOCARDIOGRAM Patient Name: CITLALY BRISENOPatient ID: [id number] : [id number] Date: 12/27/2021 3:08:38 PM Gender: FAccession #: [id number] Tech: Burt.Provider: IVY WILLSON Height(Cm): 163BSA: 1.86 Weight(Kg): 76.2BP: 112/76 Order Provider: IVY WILLSON Procedures: Echocardiographic Report: Transthoracic Echocardiogram with 2D, M-Mode, Spectral and Color FlowDoppler examination and administration of intravenous contrast. Indications: Hypertrophic cardiomyopathy. Measurements: 2D/M Mode Doppler Measurement Value Normal Range Measurement ValueNormal Range IVSd 2D 1.41 [ 0.60 - 0.90 ] cm AV Peak Wagner 1.0[ 1.0 - 1.7 ] m/s LVIDd 2D 4.25 [ 3.90 - 5.30 ] cm AV Peak PG 4[ 2 - 9 ] mmHg LVIDs 2D 3.01 [ 2.30 - 3.90 ] cm AV Mean PG 2[ 2 - 4 ] mmHg LVPWd 2D 1.11 [ 0.60 - 1.00 ] cm AV VTI 20.6cm Estimated EF 80.00 % MTA VTI 2.9[ 2.0 - 4.0 ] cm2 LA Dimension 2D 3.60 [ 2.70 - 3.80 ] cm LVOT Peak Wagner 0.94[ 0.70 - 1.10 ] m/s AoR Diam 2D 3.20 [ 2.60 - 3.70 ] cm LVOT Diam 2.0[ 1.7 - 2.1 ] cm TAPSE 2.30 [ 1.60 - 3.00 ] cm LVOT Peak PG 4[ 2 - 6 ] mmHg LVOT VTI 18.3[ 20.0 - 30.0 ] cm MV Peak PG 2[ 1 - 10 ] mmHg MV Mean PG 1[ <= 5 ] mmHg MV E Peak Wagner 0.5[ 0.6 - 1.3 ] m/s MV A Peak Wagner 0.8[ 1.0 - 1.2 ] m/s MV PHT 61.7[ 20.0 - 100.0 ] ms MV Decel Time 210.1[ 104.0 - 258.0 ] ms MVA PHT 3.6[ 2.0 - 4.0 ] ms MV E/A Ratio 0.6 PV Peak Wagner 1.0[ 0.4 - 0.8 ] m/s PV Peak PG 4mmHg Lat E` Wagner 0.06[ 0.10 - 0.15 ] m/s Sept E' Wagner 0.06[ 0.08 - 0.15 ] m/s E/E` 8.33 RV S' 0.11m/s - Findings: Study Quality: Technically difficult study. BP: Blood pressure: 112/76 mmHg. Left Ventricle: LV systolic function is hyperdynamic. Ejection Fraction is estimated at 80%. There is at least grade I diastolic dysfunction (impaired myocardial relaxation).Redemonstration of thickened hyperdynamic LV apex consistent with apical variant hypertrophic cardiomyopathy. Mild asymmetric septal hypertrophy is present. There is noresting LVOT gradient. Right Ventricle: Normal right ventricular systolic function. Normal right ventricularsize. Left Atrium: The left atrium is normal in size. Right Atrium: The right atrium is grossly normal in size. Atrial Septum: Atrial septum is not well visualized. Mitral Valve: Normal appearance of the mitral valve leaflets. There is no mitralregurgitation. Aortic Valve: Normal appearance of the aortic valve. Aortic valve appears tricuspid inconfiguration. There is no aortic stenosis. There is no aortic regurgitation. Tricuspid Valve: Grossly normal appearing tricuspid valve. Pulmonic Valve: Grossly normal appearing pulmonic valve. There is no pulmonic stenosis. Pericardium: No significant pericardial effusion. Aortic Root and Aorta: The sinuses of Valsalva are normal. Aortic Arch: Grossly normal aortic arch. IVC: Grossly normal appearance of the inferior vena cava. Conclusions: 1. LV systolic function is hyperdynamic. Ejection Fraction is estimated at80 %. There is at least grade I diastolic dysfunction (impaired myocardial relaxation).Redemonstration of thickened hyperdynamic LV apex consistent with apical varianthypertrophic cardiomyopathy. Mild asymmetric septal hypertrophy is present. There is noresting LVOT gradient. 2. Normal right ventricular systolic function. Normal right ventricularsize. 3. Grossly normal appearance of the inferior vena cava. 4. No significant valvular abnormalities. Electronically Signed By: Cam Tejeda MD [facility] 2021-12-30 07:50:13 CDT CC: CC: Ivy Willson NP CV ECHO PROCEDUR ES Final Result documented in this encounter Visit Diagnoses Diagnosis Apical variant hypertrophic cardiomyopathy (HCC) documented in this encounter Administered Medications Inactive Administered Medications - up to 3 most recent administrations Medication Order MAR Action Action Date Dose Rate Site perflutren protein-a (OPTISON) 3 mL in sodium chloride 0.9% 8 mL syringe 1-8 mL, intravenous, Once in imaging, contrast, Starting on Thu12/27/21 at 1612, For 1 dose, Intra-Procedure (CV) Contrast Given 12/27/2021 4:12 PM CDT 4 mL documented in this encounter Care Teams Marketing Technology Coordinator Relationship Specialty Start Date End Date Enmanuel Gan MD [address] [facility] [address] [place] [address] PCP - General Internal Medicine 04/26/20 Tg Houston MD [address] [facility] [address] [place] [address] Consulting Physician Cardiology 07/18/20 Guerrero Hunter DPT [address] [facility] [address] [facility] [place] [address] Physical Therapist Physical Therapy 11/08/20 Guerrero Weiner DIE CASTING MACHINE OPERATOR [id number] [place] [address] Casing Trimmer Physical Therapy 12/12/20 documented as of this encounter
--- OUTSIDE RECORDS SUMMARY | 2024-07-12 08:47 | XMS_ITS | Encounter Summary ---
Author Organization [facility] Address [address] [facility] [address] [place] [address] Care Team Providers Care Cost Accounting Analyst Name Role Phone Enmanuel Gan MD Primary Care Provider [phone] Tg Houston MD Unavailable [phone] Guerrero Hunter DPT Unavailable [phone] Guerrero Weiner 5TH GRADE TEACHER Unavailable [phone] Reason for Visit * Reason Comments Cardiomyopathy Encounter Details Date Type Department Care Team (Latest Contact Info) Description 01/07/2022 2:45 PM CDT Office Visit [facility] Cardiology [address] [facility] [address] [place] [address] Cam Tejeda MD [address] [place] [address] [address] [place] [address] Microvascular angina (CMS/HCC) (HCC) (Primary Dx); Apical variant hypertrophic cardiomyopathy (CMS/HCC) (HCC); Paroxysmal atrial fibrillation (CMS/HCC) (HCC); AV block, 2nd degree; ICD (implantable cardioverter-defibrilla tor) in place Social History Tobacco Use Types Packs/Day Years [...] attend chur ch or orthodoxy services? 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 Gender Identity Not on file Sexual Orientation Lesbian 05/24/2019 9: 06 AM CDT documented as of this encounter Last Filed Vital Signs Vital Sign Reading Time Taken Comments Blood Pressure 116/68 01/07/2022 2:26 PM CDT Pulse 79 01/07/2022 2:26 PM CDT Temperature - - Respiratory Rate - - Oxygen Saturation - - Inhaled Oxygen Concentration - - Weight 76.7 kg (169 lb) 01/07/2022 2:26 PM CDT Height 162.6 cm (5' 4 ) 01/07/2022 2:26 PM CDT Body Mass Index 29.01 01/07/2022 2:26 PM CDT documented in this encounter Ordered Prescriptions Prescription Sig Dispense Quantity Refills Last Filled Start Date End Date dilTIAZem XR (CARDIZEM CD,DILACOR XR) 180 mg 24 hr capsule Take 1 capsule (180 mg total) by mouth daily 30 capsule 11 01/07/2022 2 documented in this encounter Progress Notes * Cam Tejeda MD - 01/07/2022 2:45 PM CDT Images from the original note were not included. [facility] Cardiology [address] [facility], [address], [facility] [address] [place] [id number] Cardiology Electrophysiology Bg Zapata, MD Bar Welch,, MD Negro Arrieta, MD Alfonso Daugherty, MD Guerrero South, MD Ashvin Recio, MD Jose L Lomeli, DO Rg Cummings, MD Clara Thakkar, GOAT DRIVER Yannick Mancilla, MD Tg Houston, MD Isidro Perez, MD Saw Benitez, MD Mac Ashraf, DO Cam Tejeda, MD Ivy Willson, GOAT DRIVER Lucia Dennis, GOAT DRIVER Elizabeth Turpin, GOAT DRIVER Patient Name: Macie Briseno Provider: Cam Tejeda MD : 1945 Date of Service: 01/07/2022 Referring: Elvia CHIEF COMPLAINT: Cardiomyopathy HISTORY OF PRESENT ILLNESS: 76 y.o. female microvascular angina, hypertension, and dyslipidemia. She has been managed with calcium channel nayana therapy. ?? In June 2020 she was found to [...] flecainide and has had no further episodes since. ?? She was hospitalized at [facility] from 03/28/21-03/29/21 after having developed exertional shortness of breath, weakness, lightheadedness, and sweating in mid February leading to a hospitalization at [place] during which she was noted to be [...] apical hypertrophy, confirmed with a cardiac MR. ?? Since last seen, she did receive an ICD on 06/05/2021. In late November she called the exchange noting worsening exertional dyspnea. She had previously called her PCP, who restarted her on diltiazem which had subsequently been stopped previously. - I arranged for an urgent appointment with our nurse practitioner, she saw Tameka 4 days later on 12/13/2021. - with noted 2 months of worsening exertional fatigue and dyspnea, she described as different than her typical microvascular angina. - EKG at that visit showed normal sinus rhythm Interval History Echocardiogram Was ordered when she saw Ivy shows essentially no change EF 80%, hyperdynamic LV with grade 1diastolic dysfunction Hypertrophic apex consistent with prior diagnosis of apical hypertrophic myopathy No resting LVOT gradient No significant valvular abnormalities I reviewed this patient's Allergies and Current Medication List and updated as needed in the medical record. I reviewed this patient's Past Medical History, Social History, and Family History and updated as needed in the medical record. MEDICATIONS: Outpatient Encounter Medications as of 01/07/2022 Medication Sig Dispense Refill ??? ALPRAZolam (XANAX) 0.25 mg tablet Take 1 tablet (0.25 mg total) by mouth nightly as needed for anxiety 30 tablet 0 ??? amLODIPine (NORVASC) 5 mg tablet Take 5 mg by mouth daily ??? atorvastatin (LIPITOR) 20 mg tablet Take 20 mg by mouth nightly ??? azelastine (ASTELIN) 137 mcg (0.1 %) nasal spray 1 spray 2 (two) times a day ??? calcium acetate,phosphat bind, (PHOSLO) 667 mg capsule Take 1,334 mg by mouth every morning ??? DULoxetine DR (CYMBALTA) 30 mg capsule Take 90 mg by mouth every morning ??? Eliquis 5 mg tablet Take 5 mg by mouth 2 (two) times a day ??? fexofenadine-pseudoephedrine (THELMA-D) 60-120 mg per 12 hr tablet Take 1 tablet by mouth 2 (two) times a day as needed for allergies ??? fluticasone (FLONASE) 50 mcg/actuation nasal spray inhale 1 spray (50MCG) by intranasal route every day in each nostril (Patient taking differently: Administer into each nostril nightly) 0 ??? magnesium citrate 100 mg tablet Take 1 tablet by mouth every morning ??? potassium chloride ER 20 mEq CR tablet Take 40 mEq by mouth every morning ??? sucralfate (CARAFATE) 1 gram tablet Take 2 g by mouth 2 (two) times a day as needed ??? traZODone (DESYREL) 50 mg tablet ??? triamterene-hydroCHLOROthiazide 37.5-25 mg per capsule TAKE ONE CAPSULE BY MOUTH ONCE DAILY (Patient taking differently: Take 1 tablet/capsule by mouth every morning) 90 capsule 3 No facility-administered encounter medications on file as of 01/07/2022. CARDIAC HISTORY: REVIEW OF SYSTEMS Pertinent review of systems negative unless otherwise stated in HPI above. PHYSICAL EXAM: BP 116/68 (BP Location: Right arm, Patient Position: Sitting) Pulse 79 Ht 162.6 cm (5' 4 ) Wt76.7 kg (169 lb) BMI 29.01 kg/m?? General: Well appearing, No pain or distress, well nourished Head and Neck: N/A Eyes: N/A ENT: N/A Respiratory: Clear to ausculation bilaterally; no wheezing/rales/rhonchi; respirations nonlabored Cardiovascular: RRR, normal S1 and S2. No S3 or S4. No murmurs or rubs. No visible JVD. Gastrointestinal: N/A Extremities: Warm and perfused extremities, no edema Musculoskeletal: Ambulates under own power, no assistive devices Skin: N/A Psychiatric: Appropriate mood and affect. Calm and cooperative. Neurologic: awake/alert, no focal deficits MDM Problems Addressed: ICD-9-CM ICD-10-CM 1. Microvascular angina (CMS/HCC) ([facility]) 413.9 I20.8 2. Apical variant hypertrophic cardiomyopathy (CMS/HCC) ([facility]) 425.18 I42.2 3. Paroxysmal atrial fibrillation (CMS/HCC) ([facility]) 427.31 I48.0 4. AV block, 2nd degree 426.13 I44.1 5. ICD (implantable cardioverter-defibrillator) in place V45.02 Z95.810 Data Reviewed: Results: hgb 14 Recommend stop amlodipine Restarting diltiazem 180 mg Titrate up to symptoms if this helps ASSESSMENT & PLAN DISCUSSION Diagnoses and all orders for this visit: Microvascular angina (CMS/HCC) ([facility]) (Primary) - previously had microvascular angina - having some more dyspnea on exertion - does not necessarily feel like her previous microvascular angina - previously was taken off diltiazem - has been placed back on amlodipine - after full review of her echocardiogram I think it is quite possible what her symptoms are more likely due to is some combination of diastolic dysfunction and hyperdynamic LV from her apical hypertrophic cardiomyopathy - either way I think she will benefit more from diltiazem rather than amlodipine so will stop amlodipine and replace this with diltiazem - could titrate up to higher doses if blood pressure and heart rates warrant Apical variant hypertrophic cardiomyopathy (CMS/HCC) ([facility]) - notable apical hypertrophic very - has primary preventative ICD in place - very hyperdynamic LV - though no LVOT obstruction -I feel her symptoms could very well be due at least in part to the hyperdynamic LV causing worsening diastolic dysfunction - thus will recommend restarting diltiazem as noted above Paroxysmal atrial fibrillation (CMS/HCC) (HCC) AV block, 2nd degree ICD (implantable cardioverter-defibrillator) in place - follow-up by Dr. Recio - very low pacing burden as of August 2% RA paced, 0% RV paced - no discharges Cam Tejeda MD [facility] Tire Beader Maker This note was dictated in part using [employer] voice recognition software. Despite careful review of this note, variances in spelling and vocabulary are possible and unintentional. documented in this encounter Plan of Treatment Not on file documented as of this encounter Visit Diagnoses Diagnosis Microvascular angina (HCC)- Primary Apical variant hypertrophic cardiomyopathy (HCC) Paroxysmal atrial fibrillation (CMS/HCC) (HCC) Atrial fibrillation AV block, 2nd degree Other second degree atrioventricular block ICD (implantable cardioverter-defibrillator) in place documented in this encounter Discontinued Medications Medication Sig Discontinue Reason Start Date End Da te amLODIPine (NORVASC) 5 mg tablet Take 5 mg by mouth daily Alternate therapy 12/13/2021 01/07/2022 documented as of this encounter Historical Medications * This list may reflect changes made after this encounter. azelastine (ASTELIN) 137 mcg (0.1 %) nasal sprayIndications :Seasonal Allergic Rhinitis Administer 1 spray into each nostril 2 (two) times a day as needed for rhinitis or allergies 12/30/2021 4 added in this encounter Care Teams Cost Accounting Analyst Relationship Specialty Start Date End Date Enmanuel Gan MD [address] [facility] [address] [place] [address] PCP - General Internal Medicine 04/26/20 Tg Houston MD [address] [facility] [address] [place] [address] Consulting Physician Cardiology 07/18/20 Guerrero Hunter DPT [address] [facility] [address] [place], [place] [id number] Physical Therapist Physical Therapy 11/08/20 Guerrero Weiner, [facility] [address] [facility] [address] [place] [address] Automotive Instructor Physical Therapy 12/12/20 documented as of this encounter
--- OUTSIDE RECORDS SUMMARY | 2024-07-12 08:47 | XMS_ITS | Encounter Summary ---
Author Organization [facility] Address [address] [place] [address] Phone Care Team Providers Care Fiberglass Grinder Name Role Phone Enmanuel Gan MD Primary Care Provider [phone] Tg Houston MD Unavailable [phone] Guerrero Hunter DPT Unavailable [phone] Guerrero Weiner TOWEL HEMMER Unavailable [phone] Encounter Details Date Type Department Care Team (Late st Contact Info) Description 12/25/2021 Documentation [facility] [address] [facility] Medicine 11th [place] [address] [place] [address] Iwona Davis Au.D. [address] [facility] [address] [place] [address] Social History Tobacco Use Types Packs/Day Years [...] often do you attend chur ch or scientologist services? 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 [facility] is out of network with [facility] for hearing aids. Up to $2,500.00 allowance toward unlimited hearing aid devices per ear every 2 years. You can contact [employer] at There is no coverage if hearing aids or related services are received from an [facility] provider. documented in this encounter Plan of Treatment Not on file documented as of this encounter Visit Diagnoses Not on filedocumented in this encounter Care Teams Fiberglass Grinder Relationship Specialty Start Date End Date Enmanuel Gan MD [address] [place] [address] PCP - General Internal Medicine 04/26/20 Tg Houston MD [address] [place] [address] Consulting Physician Cardiology 07/18/20 Guerrero Hunter DPT [address] [facility] [address] [facility] [place], [place] [id number] Physical Therapist Physical Therapy 11/08/20 Guerrero Weiner, TOWEL HEMMER [address] [facility] [address] [place], [place] [id number] Pharmacy Tech Customer Service Physical Therapy 12/12/20 documented as of this encounter
--- OUTSIDE RECORDS SUMMARY | 2024-07-12 08:47 | XMS_ITS | Encounter Summary ---
Author Organization [facility] Address [address] [facility] [address] [place] [address] Care Team Providers Care Waiter/Waitress Second Class Name Role Phone Enmanuel Gan MD Primary Care Provider [phone] Tg Houston MD Unavailable [phone] Guerrero Hunter DPT Unavailable [phone] Guerrero Weiner INTRANET SPECIALIST Unavailable [phone] Reason for Visit * Reason Onset Date Comments Test Results 12/31/2021 Encounter Details Date Type Department Care Team (Late st Contact Info) Description 12/31/2021 Telephone [facility] Cardiology [address] [facility] [address] [place] [address] Ivy Willson NP [address] [place] [address] Test Results Social History Tobacco Use Types Packs/Day [...] attend chur ch or zoroastrianism services? 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 FU 01/07/22 * Telephone Encounter - Jasmin Rodriguez RDCS - 12/31/2021 1:29 PM CDT ----- Message from Ivy Willson NP sent at 12/31/2021 11:03 AM CDT ----- Please call the patient let her know that her echocardiogram demonstrates no significant change from prior study. Follow-up with Dr. Tejeda as scheduled January 07, 2022. Thank you. * Telephone Encounter - Yanni Rothman - 12/31/2021 11:58 AM CDT LVM for pt to CB for ECHO results * Telephone Encounter - Yanni Rothman - 12/31/2021 11:58 AM CDT ----- Message from Ivy Willson NP sent at 12/31/2021 11:03 AM CDT ----- Please call the patient let her know that her echocardiogram demonstrates no significant change from prior study. Follow-up with Dr. Tejeda as scheduled January 07, 2022. Thank you. documented in this encounter Plan of Treatment Not on file documented as of this encounter Visit Diagnoses Not on filedocumented in this encounter Care Teams Waiter/Waitress Second Class Relationship Specialty Start Date End Date Enmanuel Gan MD [address] [facility] [address] [place] [address] PCP - General Internal Medicine 04/26/20 Tg Houston MD [address] [facility] [address] [place] [address] Consulting Physician Cardiology 07/18/20 Guerrero Hunter DPT [address] [facility] [address] [place] [address] Physical Therapist Physical Therapy 11/08/20 Guerrero Weiner, INTRANET SPECIALIST [address] [facility] [address] [place] [address] Wire Tinner Physical Therapy 12/12/20 documented as of this encounter
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
--- OUTSIDE RECORDS SUMMARY | 2024-07-12 08:47 | XMS_ITS | Encounter Summary ---
Author Organization [facility] Address [address] [place] [address] Phone Care Team Providers Care Chief Librarian Extension Department Name Role Phone Enmanuel Gan MD Primary Care Provider [phone] Tg Houston MD Unavailable [phone] Guerrero Hunter DPT Unavailable [phone] Guerrero Weiner FERMENTER WINE Unavailable [phone] Reason for Referral * MRI/CAT/PET Scan (Routine) - Closed Specialty Diagnoses / Procedures Referred By Contac t Referred To Contact Radiology Diagnoses Fusion of spine of lumbar region Procedures CT Lumbar Spine WO Contrast Jeremy Michelle MD [address] [place] [address] Phone: tel: fax: [address] [address] Referral ID Status Reason Start Date Expiration Date Visits Re quested Visits Authorized [id number] Closed 01/21/2022 02/20/2023 1 1 * Diagnostic Imaging (Routine) - Closed Specialty Diagnoses / Procedures Referred By Contac t Referred To Contact Diagnoses Fusion of spine of lumbar region Procedures XR Scoliosis 6 or More Views Jeremy Michelle MD [address] [facility] [address] Phone: tel: fax: [facility] [address] [facility] [place] [address] Referral ID Status Reason Start Date Expiration Date Visits Re quested Visits Authorized [id number] Closed 01/20/2022 02/19/2023 1 1 Encounter Details Date Type Department Care Team (Late st Contact Info) Description 01/21/2022 9:30 AM CDT Office Visit [facility] Orthopaedic Surgery [address] [facility] 6th [place] [address] [place] [address] Jeremy Michelle MD [address] [place] [address] Fusion of spine of lumbar region (Primary [...] attend chur ch or confucianist services? Never 07/30/2020 Do you belong to [...] on file Legal Sex Female 9:09 PM PUBLICITY EXPERT Gender Identity Not on file Sexual Orientation Lesbian 05/24/2019 9: 06 AM CDT documented as of this encounter Last Filed Vital Signs Vital Sign Reading Time Taken Comments Blood Pressure - - Pulse - - Temperature - - Respiratory Rate - - Oxygen Saturation - - Inhaled Oxygen Concentration - - Weight 76.7 kg (169 lb) 01/21/2022 10:41 AM CDT Height 163.8 cm (5' 4.5 ) 01/21/2022 10:41 AM CD T Body Mass Index 28.56 01/21/2022 10:41 AM CDT documented in this encounter Patient Instructions * Patient Instructions* Cyndie Byers RN - 01/21/2022 11:16 AM CDT Thank you for your visit today we are pleased to be here to assist with your spine needs. Sincerely, Dr. Jeremy Michelle & Cyndie Byers RN Please contact Dr. Miguel Angel Agee's Nurse if you have any questions. Mail disc to: Orthopedics Attn: Cyndie/ Dr. Michelle [address] [phone] documented in this encounter Progress Notes * Jeremy Michelle MD - 01/21/2022 9:30 AM CDT Images from the original note were not included. Established Patient Visit Interim History Macie Briseno returns to our office today for follow-up 1.5 years out from revision L1-4 posterior spinal instrumented fusion. She is doing well. She still has some residual L3 paresthesias bilaterally and some L4 numbness on the left. This has been the same or close the same since before surgery. She does not have much back pain and she has been getting around and doing great since then. We had concerns for lucency around the top screws and we got a CT in July. This shows good fusion at all but the top level which is unclear if it is starting to fuse or not at that point. She is here to follow-up like I said 1.5 years out and is doing well Physical Examination Intact throughout with above findings including her baseline decreased L4 sensation and bilateral L3 paresthesias. These do not seem to bother her very much and she has 5/5 and sensory intact light touch throughout otherwise. Review of Plain Radiographs/Studies Imaging reviewed by me. No change in position of instrumentation or alignment. Healing around the top screws is still noted in her lumbar spine but they have not pulled out likely because they were bicortical in nature. CT from 6 months ago shows grade fusion from L2-4 with unclear fusion at L1-2. Impression/Diagnosis/Treatment Plan Doing well status post above. The plan will be to see her back in 6 months at her 2 year follow-up.At that point we will repeat her films and will get a CT scan before she comes to again look at that top level in the fusion. She will let us know if she has problems before then. Jeremy Michelle MD PhD Assistant To The Ceo of Orthopaedic Rail AssemblerAssistant To The Ceo of Neurological Surgery [facility] [place] Brand Marketing Specialist done by [employer]; therefore, variances and inaccuracies may occur. I reviewed the patient problem list pertinent to the visit today, but the entire patient problem list was not reviewed today. documented in this encounter Plan of Treatment Not on file documented as of this encounter Results * CT Lumbar Spine WO Contrast (07/08/2022 10:04 AM PUBLICITY EXPERT) Anatomical Region Laterality Modality Spine N/A Computed Tomogra phy 07/08/2022 1:41 PM PUBLICITY EXPERT Impressions 07/08/2022 2:28 PM PUBLICITY EXPERT 1. ??Postoperative changes of revised posterior instrumented [...] Jorge Ritter M.D. Narrative 07/08/2022 2:28 PM PUBLICITY EXPERT EXAMINATION: CT of the lumbar spine without [...] it. Electronically signed by: Jorge Ritter M.D. us Jeremy Michelle MD IMG CT [...] region documented in this encounter Care Teams Chief Librarian Extension Department Relationship Specialty Start Date End Date Enmanuel Gan MD [address] [facility] [address] [place] [address] PCP - General Internal Medicine 04/26/20 Tg Houston MD [address] [facility] [address] [place] [address] Consulting Physician Cardiology 07/18/20 Guerrero Hunter DPT [address] [facility] [address] [facility] [place] [address] Physical Therapist Physical Therapy 11/08/20 Guerrero Weiner PTA [address] [facility] [address] [place] [address] Machine Fur Cleaner Physical Therapy 12/12/20 documented as of this encounter
--- OUTSIDE RECORDS SUMMARY | 2024-07-12 08:47 | XMS_ITS | Encounter Summary ---
Author Organization [facility] Address [address] [place] [address] Phone Care Team Providers Care Microwave Radio Technician Name Role Phone Enmanuel Gan MD Primary Care Provider Tg Houston MD Unavailable [phone] Guerrero Hunter DPT Unavailable [phone] Guerrero Weiner CHINA PAINTER Unavailable [phone] Reason for Visit * Reason Comments Hearing Aid Evaluation * Consultation (Routine) - Closed Specialty Diagnoses / Procedures Referred By Contac t Referred To Contact Audiology Diagnoses Sensorineural hearing loss, bilateral Enmanuel Gan MD [address] [facility] [address] [facility] [address] [place] [address] Phone: tel: fax: [facility] (All Locations) Referral ID Status Reason Start Date Expiration Date V isits Requested Visits Authorized [id number] Closed Specialty Services Required 01/30/2021 2022 99 99 Encounter Details Date Type Department Care Team (Latest Contact Info) Description 12/25/2021 10:30 AM CDT Procedure visit [facility] Otolaryngology [address] [facility] 11th [place] [address] [place] [address] Iwona Davis Au.D. [address] [facility] [address] [place] [address] Sensorineural hearing loss, asymmetrical (Primary Dx) Social History Tobacco Use [...] attend chur ch or hoahaoism services? Never 07/30/2020 Do you belong to any clubs o r organizations such as druze groups, unions, fraternal or athletic groups, or [...] on file Legal Sex Female 9:09 PM WARDROBE STYLIST Gender Identity Not on file Sexual Orientation Lesbian 05/24/2019 9: 06 AM CDT documented as of this encounter Procedure Notes * Iwona Herron Au.D. - 12/25/2021 10:30 AM CDT Procedures Digna Rapp PATIENT: Macie Briseno : 1945 TYPE OF SERVICE: Hearing Aid Evaluation DATE OF SERVICE: 12/25/2021 REFERRAL SOURCE:Enmanuel Gan MD PATIENT REPORTS: Ms. Briseno is interested in learning about hearing aid options today. The patient reports she is interested in pursuing a hearing device for her right ear which is compatible with her left cochlear implant (Cochlear device). She currently utilizes a right Widex Evoke 330 F2 YURI, which she likes, but does not allow for binaural streaming with her implant. ASSESSMENT: Ms. Briseno was counseled on: ??? Her audiometric results and impact on speech understanding in quiet and noise ??? The importance of bilateral amplification for hearing in background noise, localization, and for feeling balanced. ??? Different styles of hearing aids, particularly yhmolzfl-ep-zia-canal style hearing aids o Patient currently has a YURI device and prefers to stay with this style ??? Different features of hearing aids, such as volume control, program button, remote control, directional microphones and etc. ??? Differences between the levels of technology, such as channels, automatic features, etc. o Patient was most interested in advanced or standard technology ??? Options for wireless connectivity, such as to the television and telephone ??? Options for rechargeable hearing aids (extra $250 fee) o Patient may be interested in this option ??? Assistive listening devices, such as TV Ears and amplified telephones ??? Demonstrated a right ReSound ONE 9 hearing aid coupled to a medium ReSound double dome o Patient reported the sound quality of the ReSound device was different than her Widex aid o She was counseled that there may be an adjustment period and the sound quality may sound different o Also counseled about real ear measures versus first fit (first fit was completed today) o Once the overall gain and high frequency gain was lowered, patient reported sound was more comfortable in office ??? Different ways to couple the hearing aid to the ear, such as a dome and custom mold o Patient prefers a dome to her custom earmold she currently has with the Widex device o Adequate feedback margins were obtained with the double dome today in the ReSound device ??? The patient was provided with the [facility] hearing aid information sheet, [facility] broch[facility] and my business card ??? Loss and damage and repair warranties ??? [facility]'s policy on insurance reimbursement o Patient has an insurance benefit with [facility] Hearing and was counseled on this type of benefit o It was decided she will call [facility] to determine what clinics she can utilize with her benefit o She will then call me to let me know the options given to her as some clinics have ReSound ONE devices for purchase ??? [facility]'s policy on hearing aid checks and programming of hearing aids o She understood if she purchases her aid at an outside clinic, she could return [place] [facility] [place] any programming or cleaning and checking of the device; however, the service fee ($60/15 minutes would apply) o Also discussed the patient's case with Dr. Oliveira who agreed the patient could purchase a ReSoundONE hearing aid elsewhere to utilize her benefit, but the patient would need to return to the CI Team for linking of the device to the implant in order to activate binaural streaming The patient will call [facility] then call me to discuss her options further. If she can utilize her hearing aid benefit at a reputable clinic (which sells ReSound hearing aids), she may purchase the aid there then [place] [facility] programming. She will need an appointment with the CI Team in order to activate binaural streaming. PLAN/RECOMMENDATIONS: Ms. Briseno will call when ready to proceed with amplification documented in this encounter Plan of Treatment Not on file documented as of this encounter Visit Diagnoses Diagnosis Sensorineural hearing loss, asymmetrical- Primary documented in this encounter Care Teams Microwave Radio Technician Relationship Specialty Start Date End Date Enmanuel Gan MD [address] [place] [address] INTERNAL MEDICINE [place], [place] [id number] PCP - General Internal Medicine 04/26/20 Tg Houston MD [address] [place] [address] Consulting Physician Cardiology 07/18/20 Guerrero Hunter DPT [address] [facility] [address] [facility] [place] [address] Physical Therapist Physical Therapy 11/08/20 Guerrero Weiner, [facility] [address] [facility] [address] [place] [address] Distiller Physical Therapy 12/12/20 documented as of this encounter
--- OUTSIDE RECORDS SUMMARY | 2024-07-12 08:48 | XMS_ITS | Encounter Summary ---
Author Organization [facility] Address [address] [place] [address] Phone Care Team Providers Care Freelance Court Stenographer Name Role Phone Enmanuel Gan MD Primary Care Provider [phone] Tg Houston MD Unavailable [phone] Guerrero Hunter DPT Unavailable [phone] Guerrero Weiner ADVANCED QUALITY ENGINEER Unavailable [phone] Reason for Visit * Reason Comments Hearing Loss * Consultation (Routine) - Closed Specialty Diagnoses / Procedures Referred By Contac t Referred To Contact Otolaryngology Diagnoses Sensorineural hearing loss (SNHL) of both ears Enmanuel Gan MD [address] [facility] [address] [place] [address] [place] [address] Phone: tel: fax: [facility] (All Locations) Referral ID Status Reason Start Date Expiration Date V isits Requested Visits Authorized [id number] Closed Specialty Services Required 12/25/2020 01/24/2022 3 3 Encounter Details Date Type Department Care Team (Latest Contact Info) Description 09/02/2021 2:40 PM HOLDER PILE DRIVING Office Visit [facility] - [facility] ENT [address] [facility] 11th [place] [address] [place] [address] Darshana Toth MD [address] [place] [address] Sensorineural hearing loss (SNHL) of both ears [...] on file Legal Sex Female 9:09 PM HOLDER PILE DRIVING Gender Identity Not on file Sexual Orientation Lesbian 05/24/2019 9: 06 AM CDT documented as of this encounter Progress Notes * Darshana Toth MD - 09/02/2021 2:40 PM CST Macie Briseno was seen in consultation at the request of Dr. Gan. Chief Complaint: Chief Complaint Patient presents with ??? Hearing Loss Interval: The patient returns for follow-up evaluation. She is doing very well with her CI. She also reports balance is stable. She has been dealing with post-nasal drip. She has been having PT for low back pain. She uses xanax on a prn basis long-term for symptom exacerbation. From previous: HPI: This is a 76 y.o. female who presents today for evaluation [...] Medical/Surgical History Past Medical History: Diagnosis Date ??? Atrial fibrillation (CMS/HCC) (HCC) ??? Auditory vertigo Meniere's disease ??? HLD (hyperlipidemia) ??? Meniere's disease ??? Microvascular angina (CMS/HCC) (HCC) Past Surgical History: Procedure Laterality Date ??? BACK SURGERY 2017 lower back, 2018, 2019 ??? CHOLECYSTECTOMY Cholecystectomy ??? COCHLEAR IMPLANT Left 06/19/2020 ??? IR INJECTION ARTHROGRAM SI JOINT BILATERAL WITH GUIDANCE Bilateral 02/15/2021 ??? JOINT REPLACEMENT Hip replacement, L - 2013, R - 2014 ??? OTHER SURGICAL HISTORY 1998 Sectioning of left vesibular nerve ??? VESTIBULAR NERVE SECTION Left Past Family/Social History Family History Problem Relation Age of Onset ??? Hypertension Mother ??? No Known Problems Father ??? [...] Neg Hx ??? Anesthesia problems Neg Hx Social History Socioeconomic History ??? Marital status: Tobacco Use ??? Smoking status: Never Smoker ??? Smokeless tobacco: Never Used Vaping Use ??? Vaping Use: Never used Substance and Sexual Activity ??? Alcohol use: Yes Alcohol/week: 5.0 standard drinks Types: 5 Glasses of wine per week ??? Drug use: Not Currently Comment: cbd oil topically Social History Narrative General Social History Comments: female spouse Medications/Allergies/Immunizations Current Outpatient Medications Medication Sig Dispense Refill ??? ALPRAZolam (XANAX) 0.25 mg tablet TAKE 1 TABLET BY MOUTH EVERY DAY AT BEDTIME NEEDED FOR DIZZINESS 30 tablet 0 ??? atorvastatin (LIPITOR) 20 mg tablet Take 20 mg by mouth nightly ??? calcium acetate,phosphat bind, (PHOSLO) 667 mg capsule Take 1,334 mg by mouth every morning ??? DULoxetine DR (CYMBALTA) 30 mg capsule Take 60 mg by mouth every morning ??? Eliquis 5 mg tablet ??? fexofenadine-pseudoephedrine (THELMA-D) 60-120 mg per 12 [...] (two) times a day as needed ??? triamterene-hydroCHLOROthiazide 37.5-25 mg per capsule TAKE ONE CAPSULE BY MOUTH ONCE DAILY (Patient taking differently: Take 1 tablet/capsule by mouth every morning) 90 capsule 3 No current facility-administered medications for this visit. Allergies: Adhesive, Chlorhexidine, Sulfa (sulfonamide antibiotics), and Gabapentin, Immunizations: Immunization History Administered Date(s) Administered ??? Influenza, Unspecified 03/27/2020 ??? Moderna SARS-CoV-2 Vaccination 09/13/2020, 10/15/2020, 06/10/2021 Review of Systems Review of Systems: Pertinent [...] Inspection reveals no lesions or masses. HEENT: EARS:Examination of the external ears was normal using visual inspection. Otoscopic and/or microscope reveals: Right External auditory canal: normal Tympanic Membrane: [...] done very well since cochlear implantation. She will continue workingwith the cochlear implant team. In terms of postnasal drip I recommended conservative measures including saline nasal rinses or antihistamine trial. She will use the Xanax only p.r.n. for symptom exacerbation. I will see her in 1 year for follow-up. Darshana Toth M.D. Otology and Neurotology Department of Otolaryngology [email or web address] Office: Clinic: [facility] documented in this encounter Plan of Treatment Not on file documented as of this encounter Visit Diagnoses Diagnosis Sensorineural hearing loss (SNHL) of both ears- Primary Meniere's disease of both ears documented in this encounter Care Teams Freelance Court Stenographer Relationship Specialty Start Date End Date Enmanuel Gan MD [address] [facility] [address] [place] [address] PCP - General Internal Medicine 04/26/20 Tg Houston MD [address] [facility] [address] [place] [address] Consulting Physician Cardiology 07/18/20 Guerrero Hunter DPT [address] [facility] [address] [facility] [place] [address] Physical Therapist Physical Therapy 11/08/20 Guerrero Weiner, [facility] [address] [facility] [address] [place] [address] Religious Educator Physical Therapy 12/12/20 documented as of this encounter
--- OUTSIDE RECORDS SUMMARY | 2024-07-12 08:48 | XMS_ITS | Encounter Summary ---
Author Organization [facility] Address [address] [place] [address] Phone Care Team Providers Care Sports Director Name Role Phone Enmanuel Gan MD Primary Care Provider [phone] Tg Houston MD Unavailable [phone] Guerrero Hunter DPT Unavailable [phone] Guerrero Weiner PTA Unavailable [phone] Reason for Visit * Reason Comments PT Progress Note * Consultation (Routine) - Closed Specialty Diagnoses / Procedures Referred By Contac t Referred To Contact Physical Therapy Diagnoses Fusion of spine of lumbar region Jeremy Michelle MD [address] [facility] [address] [place] [address] Phone: tel: fax: External Order Referral ID Status Reason Start Date Expiration Date V isits Requested Visits Authorized [id number] Closed Specialty Services Required 11/07/2021 11/07/2022 24 24 Encounter Details Date Type Department Care Team (Late st Contact Info) Description 11/08/2021 2:15 PM CDT Therapy [facility] Physical Therapy [address] [facility] 1st Floor [address] [place] [address] Guerrero Hunter DPT [address] [facility] [address] [facility] [place] [address] Chronic bilateral low back pain without sciatica (Primary Dx); Post-operative pain; Hip pain; Fusion of spine of lumbar region Social [...] often do you attend chur ch or shinto services? Never 07/30/2020 Do you belong to [...] file Legal Sex Female 9:09 PM INFORMATION ENGINEER Gender Identity Not on file Sexual Orientation Lesbian 05/24/2019 9: 06 AM CDT documented as of this encounter Progress Notes * Elsa Guerrero Martne, DPT - 11/08/2021 2:15 PM CDT Physical Therapy Progress Note 11/08/2021 Macie Briseno 1945 ICD-9-CM ICD-10-CM 1. Chronic bilateral low back pain without sciatica 724.2 M54.50 338.29 G89.29 2. Post-operative pain 338.18 G89.18 3. Hip pain 719.45 M25.559 4. Fusion of spine of lumbar region 724.9 M43.26 Ambulatory referral order to Physical Therapy - COVID-19 Screening: Patient was pre-screened prior to entering clinic space and passed. Passed screening determines patient has no current fever, cough, SOB, loss of sense of taste or sense of smell,body aches, or sore throat. Patient has not been exposed to anyone suspected of having COVID-19 in the past 14 days. Total therapy visits: 16 Order Information Expiration: 11/07/2022 Authorized visits: 24 Visits remainin Insurance Authorizations Insurance: [employer]IC[employer] ADV Auth expiration: Data deleted Authorized visits: 99 Visits remainin Plans of Care Sent to Physician: 11/08/2020 Valid from: 11/08/2020 Valid to: 02/07/2021 Additional Information: 11/08/2021 - WUPT - [employer] MEDICARE - NO AUTH/REF REQ - TH COVERED - NO VISIT LIMITS BASED ON MEDICARE GUIDELINES. (LT) Subjective: Patient states that they are doing well overall. The SI injections have helped. Their biggest complaint is cramping and weakness during and following activity. Pain: 0-1/10 Including today, patient has been seen for 16 physical therapy visits. 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 HEP THERAPEUTIC EXERCISE Parameters Comments x x Sit to/from stand Beige TB 3-4 rounds of 8-15 circuit style x x Ankle pumps x x Seated knee extension Beige TB x x Seated hip adduction Foam roller Hold each for 5 seconds THERAPEUTIC ACTIVITY Parameters Comments x Patient education -Anatomy & kinesiology education -Tissue susceptible to movement and movement pattern correction (lumbar spine, gluteal and LE musculature) -Sitting and standing posture -sit to/from stand -lifting technique -bed mobility -Home Exercise Program Next visit: + review and progress exercises above + emphasis on LQ strength with a small number of exercises Assessment: Chief Complaint PT Progress Note Patient is a 76 y.o.-year-old female with primary c/o low back pain. Pt presents with fair technique with exercises/activities and required minimal cues to engage gluts, to engage abdominals, for proper direction of movement and for set up and technique to prevent compensatory movement, to prevent excessive lumbopelvic rotation, to prevent excessive lumbopelvic extension and to increase intended muscle recruitment. No increase in symptoms this visit. Demonstrates improved proprioception of the lumbar spine, and increased their ability to perform functional movement with use of the gluteals toperform hip extension vs lumbar erector. Patient provided a specific routine for strengthening withthe intention to generally strengthen the lower body. Reviewed and completed HEP exercises.Will benefit from PT for patient education, strengthening, stretching, ROM, HEP, taping PRN, modalities PRN and functional mobility training. Patient consented to treatment and plan. Goal Status: Short Term Goals: (5 weeks) Goal Description New Ongoing Partially Met Met Deferred The patient will decrease c/o pain with functional activities to 4-5/10 at worst. x The patient will demonstrate improved static posture in standing and sitting. x The patient will demonstrate improved movement pattern with sit to/from stand, lifting technique. x The patient will be independent with strategies designed to help manage symptoms with the followingactivities: ADLs x The patient will demonstrate HEP with minimal guidance x Water Pump Installer Goals: (10 weeks) Goal Description New Ongoing Partially Met Met Deferred The patient will decrease c/o pain with functional activities to 3-4/10 at worst. x The patient will perform the following functional activities without pain: sleeping and bed mobility. x The patient will be independent with strategies designed to help manage symptoms with the followingactivities: ADLs and rec activities as desired. x The patient be independent with final HEP needed for sustained correction of movement impairments.x Plan: Continue per plan. Total treatment time: 40 min Guerrero Hunter DPT documented in this encounter Plan of Treatment Not on file documented as of this encounter Visit Diagnoses Diagnosis Chronic bilateral low back pain without sciatica- Primary Post-operative pain Other acute postoperative pain Hip pain Pain in joint, pelvic region and thigh Fusion of spine of lumbar region documented in this encounter Orders Outpatient Referral Count Last Ordered Date Fir st Ordered Date AMB REFERRAL ORDER TO PHYSICAL THERAPY 1 documented in this encounter Care Teams Sports Director Relationship Specialty Start Date End Date Enmanuel Gan MD [address] [facility] [address] [place] [address] PCP - General Internal Medicine 04/26/20 Tg Houston MD [address] [facility] [address] [place] [address] Consulting Physician Cardiology 07/18/20 Guerrero Hunter DPT [address] [facility] [address] [facility] [place] [address] Physical Therapist Physical Therapy 11/08/20 Guerrero Weiner PTA [id number] [place] [address] Screening Nurse Physical Therapy 12/12/20 documented as of this encounter
--- OUTSIDE RECORDS SUMMARY | 2024-07-12 08:48 | XMS_ITS | Encounter Summary ---
Author Organization [facility] Address [address] [facility] [address] [place] [address] Care Team Providers Care Joy Loading Machine Operator Name Role Phone Enmanuel Gan MD Primary Care Provider [phone] Tg Houston MD Unavailable [phone] Guerrero Hunter DPT Unavailable [phone] Guerrero Weiner WELDING SETTER Unavailable [phone] Reason for Visit * Cardiology (Routine) - Closed Specialty Diagnoses / Procedures Referred By Contac t Referred To Contact Diagnoses NICM (nonischemic cardiomyopathy) (CMS/HCC) (HCC) Procedures DEVICE CHECK - REMOTE Ashvin Recio III, MD Phone: tel: fax: [facility] Referral ID Status Reason Start Date Expiration Date Visits Re quested Visits Authorized [id number] Closed 06/06/2021 07/06/2022 1 1 Encounter Details Date Type Department Care Team (Latest Contact Info) Description 09/09/2021 7:45 AM OLIVE BRINE TESTER Ancillary Procedure [facility] [address] [facility] [address] [place] [address] NICM (nonischemic cardiomyopathy) (CMS/HCC) (HCC); ICD (implantable [...] attend chur ch or hindu services? Never 07/30/2020 Do you belong to any clubs o r organizations such as anabaptist groups, unions, fraDial2Do or athletic groups, or school groups? No [...] on file Legal Sex Female 9:09 PM OLIVE BRINE TESTER Gender Identity Not on file Sexual Orientation Lesbian 05/24/2019 9: 06 AM CDT documented as of this encounter Plan of Treatment Not on file documented as of this encounter Procedures Procedure Name Priority Date/Time Associated Diagnosis Comments DEVICE CHECK - REMOTE Routine 09/09/2021 12:45 PM OLIVE BRINE TESTER NICM (nonischemic cardiomyopathy) (CMS/HCC) (HCC) documented in this encounter Results * DEVICE CHECK - REMOTE (09/09/2021 12:45 PM OLIVE BRINE TESTER) Anatomical Region Laterality Modality Other Narrative 09/10/2021 10:42 PM OLIVE BRINE TESTER This patient received a [employer] ICD. ??They had a routine [employer] remote transmission on 09/09/2021. Device implant indications: ??Nonischemic cardiomyopathy, Mobitz type 2, and SVT ?? Interrogation of the patient? s device demonstrates the following: Presenting EGM: ??A sense V sense @ 75 bpm Lead Measurements Right Atrium Right Ventricle Sensitivity (mV) 6.9 mV >25.0 mV Impedence (Ohms) 573 ohms 434 ohms High Voltage Impedence ??81 ohms Pace Threshold Not done V @ ??ms Not done V @ ??ms Pacing % 2 % 0 % Battery Status: ??10.5 years to YURIDIA with Charge Time 9.5 seconds Episodes last 90 days/Comments: AF [place] less than 0.1 %, longest duration 5 seconds. 2 stored ventricular events both reviewed episodes show one-to-one tachy episodes versus VT. NORMAL DEVICE FUNCTION PROGRAMMED Medications - Anti-coagulant(s): ??Eliquis 5 mg twice daily Anti-arrhythmic(s): ??None Plan: 1) normal [employer] ICD evaluation. 2) [employer] remote transmission scheduled in 3 months. Latisha Self R.N. Ashvin Recio III, MD CV CARDIAC SERVICES PROCEDURES Final Result documented in this encounter Visit Diagnoses Diagnosis NICM (nonischemic cardiomyopathy) ([facility]) (HCC) ICD (implantable cardioverter-defibrillator), dual, in situ documented in this encounter Care Teams Joy Loading Machine Operator Relationship Specialty Start Date End Date Enmanuel Gan MD [address] [place] [address] [place] [address] PCP - General Internal Medicine 04/26/20 Tg Houston MD [address] [place] [address] Consulting Physician Cardiology 07/18/20 Guerrero Hunter DPT [address] [facility] [address] [facility] [place], [place] [id number] Physical Therapist Physical Therapy 11/08/20 Guerrero Weiner, WELDING SETTER [address] [place], [place] [id number] Cloth Examiner Machine Physical Therapy 12/12/20 documented as of this encounter
--- OUTSIDE RECORDS SUMMARY | 2024-07-12 08:48 | XMS_ITS | Encounter Summary ---
Author Organization [facility] Address [address] [place] [address] Phone Care Team Providers Care Affiliate Marketing Manager Name Role Phone Enmanuel Gan MD Primary Care Provider [phone] Tg Houston MD Unavailable [phone] Guerrero Hunter DPT Unavailable [phone] Guerrero Weiner WIDE AREA NETWORK SYSTEMS ADMINISTRATOR Unavailable [phone] Reason for Visit * Reason Comments Audiometric Evaluation Hearing Aid Check * Consultation (Routine) - Closed Specialty Diagnoses / Procedures Referred By Contac t Referred To Contact Audiology Diagnoses Sensorineural hearing loss (SNHL) of both ears Enmanuel Gan MD [address] [place] [address] [place] [address] Phone: tel: fax: [facility] (All Locations) Referral ID Status Reason Start Date Expiration Date V isits Requested Visits Authorized [id number] Closed Specialty Services Required 08/09/2021 09/08/2023 99 99 Encounter Details Date Type Department Care Team (Latest Contact Info) Description 08/22/2021 10:15 AM DANCE TEACHER Procedure visit [facility] Otolaryngology [address] [facility] 11th [place] [address] [place] [address] Iwona Davis Au.D. [address] [facility] [address] [place] [address] Sensorineural hearing loss (SNHL) of both ears Social History Tobacco Use [...] file Legal Sex Female 9:09 PM DANCE TEACHER Gender Identity Not on file Sexual Orientation Lesbian 05/24/2019 9: 06 AM CDT documented as of this encounter Procedure Notes * Iwona Herron Au.D. - 08/22/2021 10:15 AM CST Procedures Digna Rapp PATIENT: Macie Briseno : 1945 TYPE OF SERVICE: Annual Evaluation DATE OF SERVICE: 08/22/2021 REFERRAL SOURCE: Enmanuel Gan MD PATIENT REPORTS: Ms. Briseno reports a possible decline in hearing since her previous evaluation in 2019. She states sound is more muffled and sound is not clear. The patient states other than this, her hearing aid has been working fine. She does not need any supplies today. TESTS PERFORMED: See: Audiogram - R ear only and electroacoustic analysis ASSESSMENT: Pure tone audiometry was performed and revealed: R ear - Moderate sensorineural hearing loss at 250 Hz sloping from a moderately- severe loss at 500 to 4000 Hz to severe at 6000 and 8000 Hz L ear - DNT as patient has a cochlear implant Speech recognition thresholds test was performed and revealed: R ear - moderately-severe loss in the ability to receive speech L ear - DNT as patient has a cochlear implant Word recognition testing was performed at [facility] using recorded version of NU-6 lists of a male speaker: R ear - moderate difficulty in the ability to recognize speech L ear - DNT as patient has a cochlear implant No significant changes were noted in the right ear when compared to previous evaluation on 09/05/2019. Ms. Briseno's right Widex Evoke 330 Fusion 2 hearing aid was cleaned and dehumidified. The microphone and bellhop service captain ports were suctioned and the battery contacts were cleaned. The wax guard was replaced. Significant debris was suctioned from the front microphone. Electroacoustic analysis performed (ANSI S3.22-2009) and matches baseline settings (see below): Construction Inspector Settings HFA OSPL 90 MTG EIN Right CIC User 112.2 36.6 28.3 The patient was counseled on today's findings. She reported the hearing aid sounded much better after today's cleaning. Ms. Briseno was pleased to hear her hearing aid was working well. She will return in six months for a routine hearing aid check. PLAN/RECOMMENDATIONS: As per Dr. Gan Retest 12 months/PRN Continue use of right amplification/left cochlear implant Return for routine hearing aid check as scheduled Hearing assistive technology Hearing protection in noise E TEACHER documented in this encounter Plan of Treatment Not on file documented as of this encounter Procedures Procedure Name Priority Date/Time Associated Diagnosis Comments AUDBASE RESULTS 08/22/2021 10:12 AM DANCE TEACHER documented in this encounter Results * AUDBASE RESULTS (08/22/2021 10:12 AM DANCE TEACHER) us Provider Scanning AUDIOLOGY SERVICES ORDERABLES Final Result documented in this encounter Visit Diagnoses Diagnosis Sensorineural hearing loss (SNHL) of both ears documented in this encounter Orders Outpatient Referral Count Last Ordered Date Fir st Ordered Date AMB REFERRAL TO AUDIOLOGY (ADULT) 1 022 documented in this encounter Care Teams Affiliate Marketing Manager Relationship Specialty Start Date End Date Enmanuel Gan MD [address] [place] [address] PCP - General Internal Medicine 04/26/20 Tg Houston MD [address] [place] [address] Consulting Physician Cardiology 07/18/20 Guerrero Hunter DPT [address] [facility] [address] [place] [address] Physical Therapist Physical Therapy 11/08/20 Guerrero Weiner, WIDE AREA NETWORK SYSTEMS ADMINISTRATOR [address] [facility] [address] [place] [address] Protection Chief Industrial Plant Physical Therapy 12/12/20 documented as of this encounter
--- OUTSIDE RECORDS SUMMARY | 2024-07-12 08:48 | XMS_ITS | Encounter Summary ---
Author Organization [facility] Address [address] [place] [address] Care Team Providers Care Technical Communication Teacher Name Role Phone Enmanuel Gan MD Primary Care Provider [phone] Tg Houston MD Unavailable [phone] Guerrero Hunter DPT Unavailable [phone] Guerrero Weiner ACIDIZER Unavailable [phone] Reason for Referral * MRI/CAT/PET Scan (Routine) - Closed Specialty Diagnoses / Procedures Referred By Contac t Referred To Contact Radiology Diagnoses Fusion of spine of lumbar region Procedures CT Lumbar Spine WO Contrast Jeremy Michelle MD [address] [place] [address] Phone: tel: fax: [facility] [address] [place] [address] Referral ID Status Reason Start Date Expiration Date Visits Re quested Visits Authorized [id number] Closed 07/23/2021 08/22/2022 1 1 IC ADDRESS SERVICER Reason for Visit * MRI/CAT/PET Scan (Routine) - Closed Specialty Diagnoses / Procedures Referred By Contac t Referred To Contact Radiology Diagnoses Fusion of spine of lumbar region Procedures CT Lumbar Spine WO Contrast Jeremy Michelle MD [address] [place] [address] Phone: tel: fax: [facility] [address] [facility] [place] [address] Referral ID Status Reason Start Date Expiration Date Visits Re quested Visits Authorized [id number] Closed 07/23/2021 08/22/2022 1 1 Encounter Details Date Type Department Care Team (Latest Contact Info) Description 08/06/2021 11:48 AM PUBLIC ADDRESS SERVICER - 08/06/2021 11:59 PM PUBLIC ADDRESS SERVICER Hospital Encounter [facility] [address] [place] [address] Jeremy Michelle MD [address] [place] [address] Fusion of spine of lumbar region Discharge [...] attend chur ch or bahai services? Never 07/30/2020 Do you [...] on file Legal Sex Female 9:09 PM PUBLIC ADDRESS SERVICER Gender Identity Not on file Sexual Orientation Lesbian 05/24/2019 9: 06 AM CDT documented as of this encounter Medications at Time of Discharge atorvastatin (LIPITOR) 20 mg tabletIndications: hyperlipidemia Take 1 tablet (20 mg total) by mouth nightly 07/29/2018 ALPRAZolam (XANAX) 0.25 mg tablet Take 1 tablet (0.25 mg total) by mouth nightly as needed (dizziness) 30 tablet 04/10/2021 2 calcium acetate,phosphat bind, (PHOSLO) 667 mg [...] every day in each nostril 0 06/15/2012 06/12/202 4 magnesium citrate 100 mg tabletIndications: hypomagnesemia [...] (two) times a day as needed 4 triamterene-hydroC HLOROthiazide 37.5-25 mg per capsule TAKE [...] CONTRAST Schedule Routine, Read Routine (OP Routine) 08/06/2021 12:37 PM PUBLIC ADDRESS SERVICER Fusion of spine of lumbar region documented in this encounter Results * CT Lumbar Spine WO Contrast (08/06/2021 12:37 PM PUBLIC ADDRESS SERVICER) Anatomical Region Laterality Modality Spine N/A Computed Tomogra phy 08/06/2021 3:31 PM PUBLIC ADDRESS SERVICER Impressions 08/06/2021 4:35 PM PUBLIC ADDRESS SERVICER 1.Postoperative changes of revision posterior instrumented fusion of the lumbar spine with interval lucency around L1 vertebral body pedicle screws projecting into the vertebral body. 2. Stable moderate degenerative disease of the lumbar spine. Dictated by: Yocasta Rooney M.D. The radiology attending physician has personally reviewed this study, and had reviewed and/or edited this written report and agrees with it. Electronically signed by: Eugenio Obregon M.D, PHD Narrative 08/06/2021 4:35 PM PUBLIC ADDRESS SERVICER EXAMINATION: CT LUMBAR SPINE WO CONTRAST HISTORY: Post revision posterior instrumented fusion in June 2020. TECHNIQUE: CT of the lumbar spine was performed according to standard protocol without intravenous contrast. COMPARISON: Lumbar CT dated 10/11/2020 and MRI dated 10/30/2020. FINDINGS: There are postsurgical changes of revision posterior instrumented fusion of L1-L4 with combined interbody fusion of L2-S1. There are changes of prior laminectomies from L1 to L5. Intraval lucency around L1 vertebral body pedicle screws projecting into the vertebral body. Diffuse osteopenia. There is no acute fracture. The vertebral bodies are normal in height without compression fractures. Degenerative disc disease with calcified disc/bony material protruding posteriorly at L2-L3 disc level into the spinal canal measuring up to 7 mm, unchanged . Degenerative disease of bilateral sacroiliac joints. Nonaneurysmal abdominal aorta with atherosclerotic calcifications. Stranding and thickening of posterior soft tissues, likely post-operative and unchanged. L1-L2: The disc is normal in configuration. There is mild facet arthropathy. There is mild neuroforaminal stenosis. There is no spinal canal stenosis. Intraval lucency around L1 vertebral body pedicle screws projecting into the vertebral body. L2-L3: Decompressed posteriorly. There is moderate neuroforaminal stenosis. There is no spinal canal stenosis. L3-L4: Decompressed posteriorly. There is moderate neuroforaminal stenosis. There is no spinal canal stenosis. L4-L5: Decompressed posteriorly. There is no neuroforaminal stenosis. There is no spinal canal stenosis. L5-S1: Decompressed posteriorly. There is moderate right and mild left facet arthropathy. There is no neuroforaminal stenosis. There is no spinal canal stenosis. Procedure Note Eugenio Obregon MD PhD - 08/06/2021 EXAMINATION: CT LUMBAR SPINE WO CONTRAST HISTORY: Post revision posterior instrumented fusion in June 2020. TECHNIQUE: CT of the lumbar spine was performed according to standard protocol without intravenous contrast. COMPARISON: Lumbar CT dated 10/11/2020 and MRI dated 10/30/2020. FINDINGS: There are postsurgical changes of revision posterior instrumented fusion of L1-L4 with combined interbody fusion of L2-S1. There are changes of prior laminectomies from L1 to L5. Intraval lucency around L1 vertebral body pedicle screws projecting into the vertebral body. Diffuse osteopenia. There is no acute fracture. The vertebral bodies are normal in height without compression fractures. Degenerative disc disease with calcified disc/bony material protruding posteriorly at L2-L3 disc level into the spinal canal measuring up to 7 mm, unchanged . Degenerative disease of bilateral sacroiliac joints. Nonaneurysmal abdominal aorta with atherosclerotic calcifications. Stranding and thickening of posterior soft tissues, likely post-operative and unchanged. L1-L2: The disc is normal in configuration. There is mild facet arthropathy. There is mild neuroforaminal stenosis. There is no spinal canal stenosis. Intraval lucency around L1 vertebral body pedicle screws projecting into the vertebral body. L2-L3: Decompressed posteriorly. There is moderate neuroforaminal stenosis. There is no spinal canal stenosis. L3-L4: Decompressed posteriorly. There is moderate neuroforaminal stenosis. There is no spinal canal stenosis. L4-L5: Decompressed posteriorly. There is no neuroforaminal stenosis. There is no spinal canal stenosis. L5-S1: Decompressed posteriorly. There is moderate right and mild left facet arthropathy. There is no neuroforaminal stenosis. There is no spinal canal stenosis. IMPRESSION: 1.Postoperative changes of revision posterior instrumented fusion of the lumbar spine with interval lucency around L1 vertebral body pedicle screws projecting into the vertebral body. 2. Stable moderate degenerative disease of the lumbar spine. Dictated by: Yocasta Rooney M.D. The radiology attending physician has personally reviewed this study, and had reviewed and/or edited this written report and agrees with it. Electronically signed by: Eugenio Obregon M.D, PHD Jeremy Michelle MD IMG CT PROCEDURES Fi nal Result documented in this encounter Visit Diagnoses Diagnosis Fusion of spine of lumbar region documented in this encounter Care Teams Technical Communication Teacher Relationship Specialty Start Date End Date Enmanuel Gan MD [address] [place] [address] PCP - General Internal Medicine 04/26/20 Tg Houston MD [address] [place] [address] Consulting Physician Cardiology 07/18/20 Guerrero Hunter DPT [address] [facility] [address] [place] [address] Physical Therapist Physical Therapy 11/08/20 Guerrero Weiner, ELIAN [address] [facility] [address] [place], [place] [id number] Terminal Computer Operator Physical Therapy 12/12/20 documented as of this encounter
--- OUTSIDE RECORDS SUMMARY | 2024-07-12 08:48 | XMS_ITS | Encounter Summary ---
Author Organization [facility] Address [address] [place] [address] Phone Care Team Providers Care Wholesale Parts Salesperson Name Role Phone Enmanuel Gan MD Primary Care Provider [phone] Tg Houston MD Unavailable [phone] Guerrero Hunter DPT Unavailable [phone] Guerrero Weiner RECYCLING OPERATIONS MANAGER Unavailable [phone] Reason for Visit * Reason Onset Date Comments f/u post CT and injection 08/21/2021 Encounter Details Date Type Department Care Team (Late st Contact Info) Description 08/21/2021 Telephone [facility] Orthopaedic Surgery [address] [facility] 6th [place] [address] [place] [address] Jeremy Michelle MD [address] [facility] [address] [place] [address] f/u post CT and injection Social History Tobacco Use Types Packs/Day Years [...] on file Legal Sex Female 9:09 PM SALVATIONIST Gender Identity Not on file Sexual Orientation Lesbian 05/24/2019 9: 06 AM CDT documented as of this encounter Miscellaneous Notes * Telephone Encounter - Cyndie Byers RN - 08/22/2021 6:02 PM SALVATIONIST Call to patient and reached. Informed her of the CT review and suggestion of . 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 She is in agreement to take it easy and be more mindful of this over the next 6 months and then come back to see with imaging in hopes fusion at L1/[address]. Appt has beenscheduled for December. Patient to call office if she has any issues or needs a sooner appt. She verbalized understanding. ATIONIST * Telephone Encounter - Cyndie Byers RN - 08/21/2021 3:51 PM SALVATIONIST Call to patient to discuss the review of her imaging by Dr. Michelle and schedule her f/u. Patient has fused everywhere except top level (L1/2) where lucency is seen around screws but they are bicortical and have not moved. ??We should see her back at the 1.5 year rk with plain films to see how she is doing. We may consider revising at some point but will give another 6 months. Unable to reach at this time. LVM with contact info for call back. ATIONIST documented in this encounter Plan of Treatment Not on file documented as of this encounter Visit Diagnoses Not on filedocumented in this encounter Care Teams Wholesale Parts Salesperson Relationship Specialty Start Date End Date Enmanuel Gan MD [address] [facility] [address] [place] [address] PCP - General Internal Medicine 04/26/20 Tg Houston MD [address] [place] [address] Consulting Physician Cardiology 07/18/20 Guerrero Hunter DPT [address] [facility] [address] [place] [address] Physical Therapist Physical Therapy 11/08/20 Guerrero Weiner, RECYCLING OPERATIONS MANAGER [address] [place] [address] [address] [place] [address] Rehabilitator Physical Therapy 12/12/20 documented as of this encounter
--- OUTSIDE RECORDS SUMMARY | 2024-07-12 08:48 | XMS_ITS | Encounter Summary ---
Author Organization [facility] Healthcare Address [address] [place] [address] Care Team Providers Care Precision Jig Grinder Name Role Phone Enmanuel Gan MD Primary Care Provider [phone] Tg Houston MD Unavailable [phone] Guerrero Hunter DPT Unavailable [phone] Guerrero Weiner ASSISTANT FIELD HOCKEY COACH Unavailable [phone] Reason for Referral * Diagnostic Imaging (Routine) - Closed Specialty Diagnoses / Procedures Referred By Contac t Referred To Contact Radiology Diagnoses Fusion of spine of lumbar region Procedures IR Injection SI Joint Left with Guidance Jeremy Michelle MD [address] [place] [address] Phone: tel: fax: [facility] [address] [place] [address] Referral ID Status Reason Start Date Expiration Date Visits Re quested Visits Authorized [id number] Closed 07/23/2021 08/22/2022 1 1 S N NAVIGATION OPERATOR Reason for Visit * Diagnostic Imaging (Routine) - Closed Specialty Diagnoses / Procedures Referred By Contac t Referred To Contact Radiology Diagnoses Fusion of spine of lumbar region Procedures IR Injection SI Joint Left with Guidance Jeremy Michelle MD [address] [address] Phone: tel: fax: [facility] [address] [facility] [address] Referral ID Status Reason Start Date Expiration Date Visits Re quested Visits Authorized [id number] Closed 07/23/2021 08/22/2022 1 1 Encounter Details Date Type Department Care Team (Latest Contact Info) Description 09/06/2021 9:40 AM ECDIS N NAVIGATION OPERATOR - 09/06/2021 11:59 PM ECDIS N NAVIGATION OPERATOR Hospital Encounter [facility] [address] [place] [address] Jeremy Michelle MD [address] [facility] [place] [address] [place] [address] [place] [address] 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) Discharge Disposition: Discharge to home or self [...] on file Legal Sex Female 9:09 PM ECDIS N NAVIGATION OPERATOR Gender Identity Not on file Sexual Orientation Lesbian 05/24/2019 9: 06 AM CDT documented as of this encounter Last Filed Vital Signs Vital Sign Reading Time Taken Comments Blood Pressure 137/76 09/06/2021 10:59 AM ECDIS N NAVIGATION OPERATOR Pulse 72 09/06/2021 10:59 AM ECDIS N NAVIGATION OPERATOR Temperature - - Respiratory Rate 16 09/06/2021 10:59 AM ECDIS N NAVIGATION OPERATOR Oxygen Saturation 97% 09/06/2021 10:59 AM ECDIS N NAVIGATION OPERATOR Inhaled Oxygen Concentration - - Weight - - Height - - Body Mass Index - - documented in this encounter Discharge Instructions * Discharge Instructions* Enriqueta Burton RN - 09/06/2021 11:07 AM ECDIS N NAVIGATION OPERATOR Pain diary and discharge instructions reviewed. Patient verbalized understanding. S N NAVIGATION OPERATOR * Patient Instructions* Khalif Jennings MD - 09/06/2021 10:20 AM ECDIS N NAVIGATION OPERATOR Post Procedure Instructions You received a steroid injection to your left sacroiliac joint Your injection included: o Lidocaine (numbing medicine). The numbing medicine usually lasts for 1-2 hours. o Triamcinolone/Kenalog (steroid medicine for inflammation and pain). The steroid will typically start working within the next several days but can take up to two weeks for the full effect. When you get home: 1. Resume your normal diet 2. For soreness, you may place an ice pack once an hour at the injection site for 15-20 minutes as needed 3. You may shower 4. To prevent infection, do not take a bath, swim or sit in a Jacuzzi or hot tub for the next two days 5. Drink plenty of fluids to decrease a chance of a headache associated with steroids 6. You may resume your physical therapy appointments in 24 hours 7. Do not exercise for 24 hours, regular day-to-day activities are OK to perform Diabetic patients: 1. Steroid injections may lead to higher blood glucose (sugar) levels temporarily. Most commonly, the higher levels will return to normal within 1-3 days, though effects may last longer. Rises in blood glucose levels may be more significant in patients with poorly controlled type 2 diabetes (those with HbA1c levels greater than 7) and those with type 1 diabetes. 2. Check fasting (cloth bolt bander prior to first meal of the day) and post- prandial (following meals)blood glucose levels. 3. Contact the physician who manages your diabetes if your blood sugar is significantly elevated (for example, over 100mg/dL higher than your pre- injection level) or if blood sugar levels remain significantly elevated 2 days after receiving the injection, to discuss whether a change in medication dosing is needed. For urgent concerns after hours, call our exchange at [phone]. For all other questions regarding the procedure, please call our office at [phone]. Pain Diary Please fill out the pain diary chart below and call or message via [employer] the medical provider whorequested the injection, Dr. Briseno, in two weeks. By how much has your pain improved after your injection? NOT IMPROVED IMPROVED A LITTLE IMPROVED A LITTLE MORE IMPROVED A LOT NO PAIN Immediately? 0% 20% 50% 80% 100% 6 hours after? 0% 20% 50% 80% 100% 24 hours after? 0% 20% 50% 80% 100% 4 days after? 0% 20% 50% 80% 100% 1 week after? 0% 20% 50% 80% 100% 10 days after? 0% 20% 50% 80% 100% 2 weeks after? 0% 20% 50% 80% 100% S N NAVIGATION OPERATOR documented in this encounter Medications at Time of Discharge atorvastatin (LIPITOR) 20 mg tabletIndications: hyperlipidemia Take 1 tablet (20 mg total) by mouth nightly 07/29/2018 ALPRAZolam (XANAX) 0.25 mg tablet TAKE 1 TABLET BY MOUTH EVERY DAY AT BEDTIME NEEDED FOR DIZZINESS 30 tablet 08/19/2021 2 calcium acetate,phosphat bind, (PHOSLO) 667 mg [...] or self care documented in this encounter Progress Notes * Khalif Jennings MD - 09/06/2021 10:20 AM CST Left Fluoroscopically-Guided Sacroiliac Joint Injection [facility] Department of Orthopedic Surgery Division of Physical Medicine and Rehabilitation Patient name: Macie Briseno Date of : 1945 Date of service: 09/06/2021 Macie Briseno presents to the fluoroscopy suite for a fluoroscopically guided left sacroiliac joint steroid injection as part of conservative treatment for sacroiliac joint pain/dysfunction. Afterinformed consent was obtained, the patient was positioned prone on the fluoroscopy table. The left sacroiliac joint was identified under fluoroscopic guidance. The area was prepped with chlorhexidineand draped in sterile fashion. Using a 25 gauge 2 inch needle, 1-2 mL of 1% lidocaine was infused subcutaneously to anesthetize the region. Then, the needle was inserted into the inferior sacroiliac joint space under fluoroscopic guidance. Confirmation of needle placement in the sacroiliac joint was obtained with infusion of 0.5 mL of Omnipaque contrast, which showed flow into the joint space. Then, a combination of 1 mL of 1% lidocaine and 40 mg of Kenalog was infused. The patient tolerated the procedure without complications. Pre and post procedure blood pressure were stable. The patient was given verbal as well as written follow-up instructions. A pain diary was given to the patient withfollow-up instructions. At the time of discharge following today's procedure, the patient was able to ambulate at their pre-procedure level and denied ongoing nausea, vomiting, or dizziness. Prior to the start of the procedure, verbal verification by the procedure participant(s) confirmed (as applicable): correct patient identity; correct site/side marked and visible; agreement on the procedure to be done; correct patient positioning; an accurate and signed procedure consent form, relevant images and results correctly labeled and displayed; any safety precautions based on clinical history and/or medication use have been addressed. Fluoroscopic guidance used to assist left sacroiliac joint injection. Confirmation of needle placement into the left sacroiliac joint was obtained by injecting 0.5 mL of Omnipaque contrast. I personally performed or was present for the procedure above. Khalif Jennings MD S N NAVIGATION OPERATOR documented in this encounter Plan of Treatment Not on file documented as of this encounter Procedures Procedure Name Priority Date/Time Associated Diagnosis Comments IR INJECTION SI JOINT LEFT WITH GUIDANCE Schedule Routine, Read Routine (OP Routine) 09/06/2021 10:57 AM ECDIS N NAVIGATION OPERATOR Sacroiliac joint dysfunction of left side documented in this encounter Results * IR Injection SI Joint Left with Guidance (09/06/2021 10:57 AM ECDIS N NAVIGATION OPERATOR) Narrative [facility] - 09/06/2021 10:58 AM ECDIS N NAVIGATION OPERATOR The images from this study are not interpreted by Radiology. ??Please refer to the physician's procedure / OR operative note. us Jeremy Michelle MD IMG IR PROCEDURES Fi nal Result [facility] documented in this encounter Visit Diagnoses Diagnosis Sacroiliac joint dysfunction of left side- Primary documented in this encounter Administered Medications Inactive Administered Medications - up to 3 most recent administrations Medication Order MAR Action Action Date Dose Rate Site iohexoL (OMNIPAQUE) 300 mg iodine/mL injection solution Code/trauma/sedation medication, Starting on Thu09/06/21 at 1058 Given 09/06/2021 10:58 AM ECDIS N NAVIGATION OPERATOR 0.5 mL lidocaine PF (XYLOCAINE) 10 mg/mL (1 %) preservative free injection Code/trauma/sedation medication, Starting on Thu09/06/21 at 1058, Intra-Procedure (IR), Indications: Administration of Local AnesthesiaIndications:Administrat ion of Local Anesthesia Given 09/06/2021 10:58 AM ECDIS N NAVIGATION OPERATOR 2 mL triamcinolone (KENALOG) 40 mg/mL injection Code/trauma/sedation medication, Starting on Thu09/06/21 at 1058 Given 09/06/2021 10:58 AM ECDIS N NAVIGATION OPERATOR 40 mg documented in this encounter Care Teams Precision Jig Grinder Relationship Specialty Start Date End Date Enmanuel Gan MD [address] [facility] [place] [id number] PCP - General Internal Medicine 04/26/20 Tg Houston MD [address] [facility] [address] [place] [address] Consulting Physician Cardiology 07/18/20 Guerrero Hunter DPT [address] [facility] [address] [facility] [place], [place] [id number] Physical Therapist Physical Therapy 11/08/20 Guerrero Weiner, [facility] [id number] [place] [address] Longwall Foreman Physical Therapy 12/12/20 documented as of this encounter
--- OUTSIDE RECORDS SUMMARY | 2024-07-12 08:48 | XMS_ITS | Encounter Summary ---
Author Organization [facility] Address [address] [facility] [address] [place] [address] Care Team Providers Care Brand Manager Name Role Phone Enmanuel Gan MD Primary Care Provider [phone] Tg Houston MD Unavailable [phone] Guerrero Hunter DPT Unavailable [phone] Guerrero Weiner CORPORATE STATISTICAL FINANCIAL ANALYST Unavailable [phone] Encounter Details Date Type Department Care Team (Late st Contact Info) Description 12/13/2021 Telephone [facility] Cardiology [address] [facility] [address] [place] [address] Yannick Mancilla MD [address] [facility] [address] [place] [address] Social History Tobacco Use Types [...] week 07/30/2020 How often do you attend [facility] or [facility] services? 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 May offer to have her come in and see 1 of the nurse practitioners in the short term. Could be atrial fibrillation has returned. Annmarie can you reach out to , and see if she can come in next week for an EKG and at least get an assessment with one of our nurse practitioners. Can discuss the case with them and if needed overbook into my clinic if clinical situation warrants. * Telephone Encounter - Yannick Mancilla MD - 12/13/2021 9:56 AM CDT Her primary physician called me today and reported that she has been experiencing worsening exertional dyspnea. He resumed a calcium channel nayana with the belief that her worsening symptoms might be the result of the discontinuation of diltiazem. He has requested that she follow up earlier than h er scheduled appointment and was under the impression that she was to see me. The schedule says that she is to see Dr. Tejeda. Regardless the can we make an effort to get her in earlier than January 07 documented in this encounter Plan of Treatment Not on file documented as of this encounter Visit Diagnoses Diagnosis Essential hypertension, benign- Primary documented in this encounter Care Teams Brand Manager Relationship Specialty Start Date End Date Enmanuel Gan MD [address] [facility] [address] [place] [address] PCP - General Internal Medicine 04/26/20 Tg Houston MD [address] [facility] [address] [place] [address] Consulting Physician Cardiology 07/18/20 Guerrero Hunter DPT [address] [facility] [address] [facility] [place] [address] Physical Therapist Physical Therapy 11/08/20 Guerrero Weiner, [facility] [address] [place] [address] Balling Machine Operator Physical Therapy 12/12/20 documented as of this encounter
--- OUTSIDE RECORDS SUMMARY | 2024-07-12 08:48 | XMS_ITS | Encounter Summary ---
Author Organization [facility] Address [address] [address] Care Team Providers Care Highway Maintenance Supervisor Name Role Phone Enmanuel Gan MD Primary Care Provider [phone] Tg Houston MD Unavailable [phone] Guerrero Hunter DPT Unavailable [phone] Guerrero Weiner PET CREMATORY WORKER Unavailable [phone] Reason for Visit * Reason Onset Date Comments Device Remote Monitor 11/25/2021 Encounter Details Date Type Department Care Team (Late st Contact Info) Description 11/25/2021 Telephone [facility] [address] [facility] [address], [place] [address] Ashvin Recio III, MD [address] [facility] [address], [place] [address] Device Remote Monitor Social History Tobacco Use Types Packs/Day Years [...] on file Legal Sex Female 9: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 They are still on back order. In office [facility] for 03/24/22. documented in this encounter Plan of Treatment Not on file documented as of this encounter Visit Diagnoses Not on filedocumented in this encounter Care Teams Highway Maintenance Supervisor Relationship Specialty Start Date End Date Enmanuel Gan MD [address] [place] [address] PCP - General Internal Medicine 04/26/20 Tg Houston MD [address] [facility] [address] [place] [address] Consulting Physician Cardiology 07/18/20 Guerrero Hunter DPT [address] [facility] [address] [place] [address] Physical Therapist Physical Therapy 11/08/20 Guerrero Weiner, [facility] [address] [facility] [place] [facility] [place] [address] [place] [address] Laborer Plumbing Physical Therapy 12/12/20 documented as of this encounter
--- OUTSIDE RECORDS SUMMARY | 2024-07-12 08:48 | XMS_ITS | Encounter Summary ---
Author Organization [facility] Address [address] [place] [address] Phone Care Team Providers Care Career Services Manager Name Role Phone Enmanuel Gan MD Primary Care Provider [phone] Tg Houston MD Unavailable [phone] Sumit Hunter DPT Unavailable [phone] Sumit Weiner PTA Unavailable [phone] Reason for Visit * Reason Comments PT Re-Eval * Consultation (Routine) - Closed Specialty Diagnoses / Procedures Referred By Contwolfgang t Referred To Contact Physical Therapy Diagnoses Post-operative pain S/P spinal fusion Jeremy Michelle MD [address] [facility] [address] [place] [address] Phone: tel: fax: [facility] (All Locations) Referral ID Status Reason Start Date Expiration Date V isits Requested Visits Authorized [id number] Closed Specialty Services Required 11/02/2020 11/02/2021 24 24 Encounter Details Date Type Department Care Team (Late st Contact Info) Description 07/24/2021 10:15 AM DATA INTEGRITY ANALYST Therapy [facility] Physical Therapy [address] [facility] 1st [address] [place] [id number] Sumit Hunter DPT [address] [facility] [address] [place] [address] Chronic bilateral low back pain without sciatica (Primary Dx); Post-operative pain Social History Tobacco Use Types Packs/Day [...] file Legal Sex Female 9:09 PM DATA INTEGRITY ANALYST Gender Identity Not on file Sexual Orientation Lesbian 05/24/2019 9: 06 AM CDT documented as of this encounter Progress Notes * Sumit Hunter, DPT - 07/24/2021 10:15 AM CST Physical Therapy Re-Evaluation Macie Briseno 1945 75 y.o. female Jeremy Michelle MD [address] [facility] [address] [place] [address] ICD-9-CM ICD-10-CM 1. Chronic bilateral low back pain without sciatica 724.2 M54.50 338.29 G89.29 2. Post-operative pain 338.18 G89.18 Date of Service: 07/24/2021 Subjective History: History of current complaint: Patient presents today with complaints of weakness and fatigue. She also notes low back pain that is less intense compared to previous episodes. She recently noticed an increase in cramping throughout her body to include quadriceps, calves, arms and hands. She is planning to follow-up with her PCP for the cramping. She notes difficulty with ADLs due to general weakness > pain. She has continued to use her SI belt with great relief, but notices a significant increase in low back pain when she removes the belt. Her low back pain is localized mainly to the left with occasional radicular symptoms down the LLE to the calf. Diagnostic testing: Xray (07/18/2021) - Unchanged posterior decompression and instrumented fusion L1 L4 with anterior fusion L2-S1. Unchanged mild lucency surrounding the L1 pedicular screws. Current pain: 2/10 Best pain: 2/10 Worst pain: 8/10 Symptoms worsen with: weight-bearing positions, ekg technician, end of day relaxation Symptoms improve with: SI-belt, rest Preferred sleeping position: right sidelying and left sidelying Goal(s): decrease pain, improve ADL performance and prevent recurrence Objective Standing Alignment Thoracic spine: kyphotic Lumbar spine: flat (fused from L1 - S1) Pelvis: posterior tilt and rotated right Iliac crest height (preferred): left high Iliac crest height (feet apart): level Hip Right femoral medial rotation Left femoral medial rotation Knee Right normal Left normal Movement Testing Standing: Forward Bend/Return Movement Pattern Symptoms Symptoms Modifable with Correction? Forward thoracic spine > lumbar spine and hips > lumbar spine no change N/A Return sway at end no change N/A Standing: Trunk Rotation: ROM R=L Movement Pattern Symptoms Femoral rotation Symptoms Modifable with Correction? Right shifts off axis increase Yes Left shifts off axis increase Yes Effect of Decompression on Symptoms: no change Single Leg Stance Movement Pattern Symptoms Symptoms Modifable with Correction? Right femoral medial rotation and Positive trendelenberg no change N/A Left femoral medial rotation, knee hyperextension and Positive trendelenberg no change N/A Preferred Sitting: at edge of seat Effect of Decompression (push-up) on Symptoms: no change Sitting Knee Extension Movement Pattern Symptoms Symptoms Modifable with Correction? Neural Tension Hamstring Length Gastroc Length Right lumbar rotation femoral medial rotation no change N/A No stiff normal Left lumbar rotation femoral medial rotation increase in L hip Yes - hip abduction No stiff normal Preferred Supine Position: no preference Hip Range of Motion - unable to assess due to soft tissue Hip Flexed Hip Ext Raghav's Test Right Left Supine Abduction/LR (BKFO) Movement Pattern Symptoms Symptoms Modifable with Correction? Right pelvic rotation on the IN no change N/A Left pelvic rotation on the IN no change N/A Supine Single Knee to Chest ROM Movement Pattern Symptoms Symptoms Modifable with Correction? Right WNL Passive: normal Active: lumbar rotation no change N/A Left WNL Passive: normal Active: lumbar rotation no change N/A Sidelying posture: lumbar sidebend, hip adduction and hip medial rotation Symptoms modifiable with correction? Yes Primary correction: pillow between knees, folded towel under spine Sidelying Hip Abduction/LR (clamshell) Movement Pattern Symptoms Symptoms Modifable with Correction? Right lumbopelvic rotation no change N/A Left lumbopelvic rotation no change N/A Functional Mobility Movement Pattern Symptoms Symptoms Modifable with Correction? Rolling Log roll no change N/A Sit to/from Stand normal no change N/A Gait: not assess this date Pain: Movement pattern: Symptoms modifiable? 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 HEP THERAPEUTIC EXERCISE Parameters Comments New x Sit to/from stand 5x5 2 pillows in chair New x Seated knee extension 2-3x8 Hips abducted outside shoulders New x Prone knee flexion 2-3x8 Hips abducted New x sidelying hip abduction with LR 2-3x8 Pillow between knees NEURO RE-ED Parameters Comments THERAPEUTIC ACTIVITY Parameters Comments x Patient education -Anatomy & kinesiology education -Tissue susceptible to movement and movement pattern correction (SIJ, gluteal and LE musculature) -Sitting and standing posture -sit to/from stand -Home Exercise Program Next visit: + review and progress exercises + side stepping + standing knee flexion + heel raises Patient was educated about the following activities: Direction susceptible to movement and movement correction, Home Exercise Program, Sit to/from Standand Sleep position Assessment/Plan: Chief Complaint PT Re-Eval Patient is a 75 y.o.-year-old female who presents to physical therapy with a chief complaint of pain at the level of the sacroiliac joints. During examination pain was not provoked with movement testing. 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 Pt stands with kyphotic thoracic spine, flat lumbar spine, L pelvic rotation and posterior tilt and bilateral femoral medial rotation. Additional factors leading to diagnosis include: decreased functional strength/neural control of gluteal and lower extremity musculature. Other contributing or associated factors include: recent surgery for pace maker inplant. Will benefit from PT for patient education, strengthening, stretching, ROM, HEP, taping PRN, modalities PRN, functional mobility training and stretching/strengthening to address the muscles listed above as well as for neuromuscular re - education to improve movement pattern with functional activities. Fair prognosis. Patient consented to treatment and plan. Short Term Goals: (3 visits) Goal Description New Ongoing Partially Met Met Deferred The patient will decrease c/o pain with functional activities to 5-6/10 at worst. X The patient will demonstrate improved static posture in sitting. X The patient will be independent with strategies designed to help manage symptoms with the followingactivities: ADLs X The patient will demonstrate HEP with minimal guidance X Disaster Director Goals: (6 visits) Goal Description New Ongoing Partially Met Met Deferred The patient will decrease c/o pain with functional activities to 4-5/10 at worst. X The patient will perform the following functional activities without pain: sit to/from stand and bed mobility. X The patient will be independent with strategies designed to help manage symptoms with the followingactivities: rec activities as desired. X The patient be independent with final HEP needed for sustained correction of movement impairments. X Frequency/Duration: 4-6 visits across 3 months as able Total treatment time: 60 min Sumit Hunter DPT INTEGRITY ANALYST documented in this encounter Miscellaneous Notes * Addendum Note - Sumit Hunter DPT - 07/24/2021 10:15 AM CSTAddended by: SUMIT HUNTER on: 07/25/2021 03:50 PM Modules accepted: Orders INTEGRITY ANALYST documented in this encounter Plan of Treatment Not on file documented as of this encounter Visit Diagnoses Diagnosis Chronic bilateral low back pain without sciatica- Primary Post-operative pain Other acute postoperative pain documented in this encounter Care Teams Career Services Manager Relationship Specialty Start Date End Date Enmanuel Gan MD [address] [facility] [address] [place] [address] PCP - General Internal Medicine 04/26/20 Tg Houston MD [address] [place] [address] Consulting Physician Cardiology 07/18/20 Sumit Hunter DPT [address] [facility] [address] [place] [address] Physical Therapist Physical Therapy 11/08/20 Sumit Weiner, [facility] [address] [facility] [address] [place] [address] [facility] Physical Therapy 12/12/20 documented as of this encounter
--- OUTSIDE RECORDS SUMMARY | 2024-07-12 08:48 | XMS_ITS | Encounter Summary ---
Author Organization [facility] Address [address] [place] [address] Phone Care Team Providers Care Electrical Electronics Technician Name Role Phone Enmanuel Gan MD Primary Care Provider [phone] Tg Houston MD Unavailable [phone] Guerrero Hunter DPT Unavailable [phone] Guerrero Weiner PROJECT DEVELOPER Unavailable [phone] Reason for Referral * Consultation (Routine) - Closed Specialty Diagnoses / Procedures Referred By Contac t Referred To Contact Physical Therapy Diagnoses Fusion of spine of lumbar region Jeremy Michelle MD [address] [facility] [place] [address] Phone: tel: fax: External Order Referral ID Status Reason Start Date Expiration Date V isits Requested Visits Authorized [id number] Closed Specialty Services Required 11/07/2021 11/07/2022 24 24 Question Answer PTRFR PT Evaluate and Treat Therapy options discussed with patient? Yes Location provided for therapy services is: Patient requested/Patient preferred Please select the performing region: External Order [171] # of visits: 24 Comments Gait training Balance Strengthening Pain Modalities Call [phone] with questions ?? For all PT reports that require a signature-please fax to [phone] For all other PT progress notes-please fax to [phone] Encounter Details Date Type Department Care Team (Late st Contact Info) Description 11/07/2021 Orders Only [facility] [address] [facility] 6th [place] [address] [place] [address] Jeremy Michelle MD [address] [facility] [address] [place] [address] Fusion of spine of lumbar region (Primary [...] often do you attend chur ch or faith services? Never 07/30/2020 Do you belong to [...] on file Legal Sex Female 9:09 PM COLLECTION AGENT Gender Identity Not on file Sexual Orientation Lesbian 05/24/2019 9: 06 AM CDT documented as of this encounter Progress Notes * Cyndie Byers RN - 11/07/2021 5:53 PM CDT Request for new PT order placed . documented in this encounter Plan of Treatment Scheduled Referrals Name Type Priority Associated Diagnoses Order Schedule Ambulatory referral order to Physical Therapy - Outpatient Referral Routine Fusion of spine of lumbar region Expected: 11/21/2021 (Approximate), Expires: 11/07/2022 documented as of this encounter Visit Diagnoses Diagnosis Fusion of spine of lumbar region- Primary documented in this encounter Care Teams Electrical Electronics Technician Relationship Specialty Start Date End Date Enmanuel Gan MD [address] [facility] [address] [place] [address] PCP - General Internal Medicine 04/26/20 Tg Houston MD [address] [facility] [address] [place] [address] Consulting Physician Cardiology 07/18/20 Guerrero Hunter DPT [address] [facility] [address] [facility] [place] [address] Physical Therapist Physical Therapy 11/08/20 Guerrero Weiner, [facility] [id number] [place] [address] Corporate Health Consultant Physical Therapy 12/12/20 documented as of this encounter
--- OUTSIDE RECORDS SUMMARY | 2024-07-12 08:48 | XMS_ITS | Encounter Summary ---
Author Organization [facility] Address [address] [place] [address] Care Team Providers Care Home Performance Consultant Name Role Phone Enmanuel Gan MD Primary Care Provider Tg [place] MD Unavailable [phone] Guerrero Hunter DPT Unavailable [phone] Guerrero Weiner NEWSWRITER Unavailable [phone] Reason for Referral * Hospital - Outpatient (Routine) - Closed Specialty Diagnoses / Procedures Referred By Gigi orosco Referred To Contact Diagnoses Apical variant hypertrophic cardiomyopathy (HCC) Procedures Transthoracic Echo Complete W Doppler/CF Ivy Willson NP Phone: tel: fax: [address] [address] Referral ID Status Reason Start Date Expiration Date Visits Re quested Visits Authorized [id number] Closed 12/17/2021 01/16/2023 1 1 Encounter Details Date Type Department Care Team (Late st Contact Info) Description 12/17/2021 1:00 PM CDT Office Visit [facility] Cardiology [address] [place] [address] Ivy Coreas NP [address] [place] [address] Apical variant hypertrophic cardiomyopathy (CMS/HCC) (HCC) (Primary Dx); Essential hypertension, benign; Dyslipidemia; ICD (implantable cardioverter-defibrill ator), dual, in situ; Microvascular angina (CMS/HCC) (HCC); Paroxysmal atrial fibrillation (CMS/HCC) (HCC); Shortness of breath Social History Tobacco Use Types Packs/Day Years [...] on file Legal Sex Female 9:09 PM KNUCKLE BENDER Gender Identity Not on file Sexual Orientation Lesbian 05/24/2019 9: 06 AM CDT documented as of this encounter Last Filed Vital Signs Vital Sign Reading Time Taken Comments Blood Pressure 112/76 12/17/2021 1:12 PM CDT Pulse 76 12/17/2021 1:12 PM CDT Temperature - - Respiratory Rate - - Oxygen Saturation 97% 12/17/2021 1:12 PM CDT Inhaled Oxygen Concentration - - Weight 76.2 kg (168 lb) 12/17/2021 1:12 PM CDT Height 163.8 cm (5' 4.5 ) 12/17/2021 1:12 PM CDT Body Mass Index 28.39 12/17/2021 1:12 PM CDT documented in this encounter Progress Notes * Ivy Willson, LU - 12/17/2021 1:00 PM CDT [facility] Cardiology [address] [address] Cardiology MD Negro Diehl, MD Guerrero South, MD Jose L Lomeli, DO Rg Cummings, MD Phillip Guerrero, MD Yannick Mancilla, MD Tg [place], MD Isidro Perez, MD Saw Benitez, MD Mac Ashraf, DO Eddie Hale, MD Cam Tejeda, MD Ivy Willson, GLASS CUTTER Lucia Dennis, GLASS CUTTER Elizabeth Turpin, GLASS CUTTER Patient Name: Citlaly Briseno Provider: Ivy Willson NP : 1945 Date of Service: 12/17/2021 Referring: Elvia CHIEF COMPLAINT: Exertional dyspnea HISTORY OF PRESENT ILLNESS: 76 y.o. 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 Patient reports for the last 2 months worsening exertional fatigue and dyspnea. She denies symptomsof her typical angina. She denies palpitations, lightheadedness, dizziness, near-syncope, or syncope. Her weight has remained stable. Appetite is good. Occasional trace lower extremity edema, utilizes compression stockings. She denies orthopnea, PND. She was evaluated by her primary care provider last week. Diltiazem was resumed. EKG obtained, she was told this was abnormal. She was encouraged tofollow-up with Cardiology. She restarted diltiazem last Thursday. Since this time, she reports some improvement of her exertional dyspnea. No significant change of fatigue. EKG in clinic normal sinus rhythm, diffuse ST T-wave abnormality without significant change from EKG May 2021. Device check 08/2021 Less than 0.1% AF burden, 0% RV paced, 2 ventricular events show 1:1 tachy episodes vs VT Transthoracic echocardiogram 03/29/2021 1. LV systolic function is hyperdynamic, particularly the apex which demonstates systolic obliteration, strongly suggestive of apical hypertrophy cardiomyopathy. Ejection Fraction is estimated at 80 %. Diastolic indices overall most consistent with Grade II diastolic dysfunction (impaired myocardial relaxation with elevated filling pressures). Normal left ventricular cavity size. Moderate concentric left ventricular hypertrophy. MEDICATIONS: Current Outpatient Medications: ??? ALPRAZolam (XANAX) 0.25 mg tablet, Take 1 tablet (0.25 mg total) by mouth nightly as needed foranxiety, Disp: 30 tablet, Rfl: 0 ??? amLODIPine (NORVASC) 5 mg tablet, Take 5 mg by mouth daily, Disp: , Rfl: ??? atorvastatin (LIPITOR) 20 mg tablet, Take 20 mg by mouth nightly , Disp: , Rfl: ??? calcium acetate,phosphat bind, (PHOSLO) 667 mg capsule, Take 1,334 mg by mouth every morning, Disp: , Rfl: ??? DULoxetine DR (CYMBALTA) 30 mg capsule, Take 90 mg by mouth every morning, Disp: , Rfl: ??? Eliquis 5 mg tablet, Take 5 mg by mouth 2 (two) times a day, Disp: , Rfl: ??? fexofenadine-pseudoephedrine (THELMA-D) 60-120 mg per 12 hr tablet, Take 1 tablet by mouth 2 (two) times a day as needed for allergies, Disp: , Rfl: ??? fluticasone (FLONASE) 50 mcg/actuation nasal spray, inhale 1 spray (50MCG) by intranasal route every day in each nostril (Patient taking differently: Administer into each nostril nightly), Disp: , Rfl: 0 ??? magnesium citrate 100 mg tablet, Take 1 tablet by mouth every morning, Disp: , Rfl: ??? potassium chloride ER 20 mEq CR tablet, Take 40 mEq by mouth every morning , Disp: , Rfl: ??? sucralfate (CARAFATE) 1 gram tablet, Take 2 g by mouth 2 (two) times a day as needed, Disp: , Rfl: ??? traZODone (DESYREL) 50 mg tablet, , Disp: , Rfl: ??? triamterene-hydroCHLOROthiazide 37.5-25 mg per capsule, TAKE ONE CAPSULE BY MOUTH ONCE DAILY (Patient taking differently: Take 1 tablet/capsule by mouth every morning), Disp: 90 capsule, Rfl: 3 REVIEW OF SYSTEMS: General: Positive for fatigue Eyes: No alterations in visual acuity ENT: No alterations in auditory acuity, no sore throat Pulmonary: Positive for exertional dyspnea. Denies cough or hemoptysis Cardiac: No chest pain, orthopnea, PND or palpitations GI: No nausea, vomiting, diarrhea or constipation Musculoskeletal: No myalgias or arthralgias Skin: no rashes Neuro: No headaches, parathesias or focal neurological complaints Endocrine: No cold or heat intolerance Heme: no excessive bleeding or bruising PHYSICAL EXAM: General: Well appearing, No pain or distress, well nourished. Eyes: AYUSH/EOMI, Conjuctiva Clear ENT: External ears/nose normal Neck: Supple Respiratory: Clear to ausculation bilaterally; no wheezing/rales/rhonchi; respirations nonlabored Cardiovascular: RRR, normal S1 and S2. No S3 or S4. No murmurs or rubs. Carotid upstrokes brisk bilaterally and without bruits. Gastrointestinal: soft, non-tender abdomen Extremities: no cyanosis or clubbing or edema. Musculoskeletal: no obvious joint deformities Skin: no obvious rash or bruising Psychiatric: normal affect Neurologic: awake/alert, no focal deficits BP 112/76 (BP Location: Right arm, Patient Position: Sitting) Pulse 76 Ht 163.8 cm (5' 4.5 ) Wt 76.2 kg (168 lb) SpO2 97% BMI 28.39 kg/m?? Body mass index is 28.39 kg/m??. ASSESSMENT & PLAN: Diagnoses and all orders for this visit: Apical variant hypertrophic cardiomyopathy (CMS/HCC) (HCC) (Primary) - Transthoracic Echo Complete W Doppler/CF; Future Reports 2 months of progressive fatigue and exertional dyspnea. She is euvolemic on physical exam, lung sounds clear bilaterally. Recently resumed diltiazem with mild improvement of symptoms. Continue to follow. Repeat echocardiogram. Follow-up with Dr. Tejeda at scheduled appointment January 07, 2022. Essential hypertension, benign Adequately controlled. Continue current therapy. Dyslipidemia LDL 67. Continue statin therapy ICD (implantable cardioverter-defibrillator), dual, in situ Microvascular angina (CMS/HCC) (HCC) Denies symptoms suggestive of angina. Continue statin. Paroxysmal atrial fibrillation (CMS/HCC) (HCC) Maintains normal sinus rhythm. She is chronically anticoagulated with Eliquis 5 mg b.i.d., continue This note was dictated with voice-recognition software, funeral professional errors may be present. Ivy Willson NP Cosigned by Cam Tejeda MD at 12/17/2021 1:44 PM CDT documented in this encounter Miscellaneous Notes * Addendum Note - Wayne Herman MA - 12/17/2021 1:00 PM CDTAddended by: WAYNE HERMAN on: 12/25/2021 04:36 PM Modules accepted: Orders documented in this encounter Plan of Treatment Not on file documented as of this encounter Procedures Procedure Name Priority Date/Time Associated Diagnosis Comments ECG 12-LEAD Routine 12/17/2021 Apical variant hypertrophic cardiomyopathy (CMS/HCC) (HCC) documented in this encounter Results * TRANSTHORACIC ECHO (TTE) COMPLETE W DOPPLER/CF W CONTRAST (12/27/2021 4:12 PM CDT) Anatomical Region Laterality Modality Ultrasound 12/27/2021 3:08 PM CDT Narrative 12/30/2021 7:50 AM CDT [id number] [place] [address] ECHOCARDIOGRAM Patient Name: CITLALY BRISENO : 1945 Study Date: 12/27/2021 3:08:38 PM Gender: F Tech: [place] Ref.Provider: IVY WILLSON Height(Cm): 163 BSA: 1.86 [...] abnormalities. Electronically Signed By: Cam Tejeda MD [facility] 2021-12-30 07:50:13 CDT CC: CC: Procedure Note Cam Tejeda MD - 12/30/2021 [address] [place] [address] ECHOCARDIOGRAM Patient Name: CITLALY BRISENOPatient ID: [id number] : [id number] Date: 12/27/2021 3:08:38 PM Gender: FAccession #: [id number] Tech: [facility].Provider: VIY WILLSON Height(Cm): 163BSA: 1.86 Weight(Kg): 76.2BP: 112/76 [...] AV VTI 20.6cm Estimated EF 80.00 % MAT VTI 2.9[ 2.0 - 4.0 ] cm2 [...] abnormalities. Electronically Signed By: Cam Tejeda MD [facility] 2021-12-30 07:50:13 CDT CC: CC: us Ivy Willson NP CV ECHO PROCEDUR ES Final Result * ECG 12 lead (12/17/2021) 12/17/2021 us Ivy Willson NP ECG ORDERABLES Final Result documented in this encounter Visit Diagnoses Diagnosis Apical variant hypertrophic cardiomyopathy (HCC)- Primary Essential hypertension, benign Dyslipidemia Other and unspecified hyperlipidemia ICD (implantable cardioverter-defibrillator), dual, in situ Microvascular angina (HCC) Paroxysmal atrial fibrillation (CMS/HCC) (HCC) Atrial fibrillation Shortness of breath Apical variant hypertrophic cardiomyopathy (HCC) documented in this encounter Historical Medications * This list may reflect changes made after this encounter. traZODone (DESYREL) 50 mg tablet 10/28/2021 03/24/2023 amLODIPine (NORVASC) 5 mg tablet Take 5 mg by mouth daily 12/13/2021 01/07/2022 added in this encounter Care Teams Home Performance Consultant Relationship Specialty Start Date End Date Enmanuel Gan MD [address] [facility] [address] [place] [address] PCP - General Internal Medicine 04/26/20 Tg [place] MD [address] [facility] [address] [place] [address] Consulting Physician Cardiology 07/18/20 Guerrero Hunter DPT [address] [facility] [address] [address] Physical Therapist Physical Therapy 11/08/20 Guerrero Weiner, [facility] [address] [address] Insight Leader Physical Therapy 12/12/20 documented as of this encounter
--- OUTSIDE RECORDS SUMMARY | 2024-07-12 08:48 | XMS_ITS | Encounter Summary ---
Author Organization [facility] Address [address] [place] [address] Care Team Providers Care Waste Disposal Attendant Name Role Phone Enmanuel Gan MD Primary Care Provider [phone] Tg [place] MD Unavailable [phone] Guerrero Hunter DPT Unavailable [phone] Guerrero Weiner STARS ANALYTICAL LEAD Unavailable [phone] Encounter Details Date Type Department Care Team (Late st Contact Info) Description 12/18/2021 Telephone [facility] Medical [facility] Cardiology [address] [place] [address] Ivy Willson, LU [address] [place] [address] Social History Tobacco Use Types Packs/Day Years [...] week 07/30/2020 How often do you attend [facility] or hoahaoism services? 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 I gave her verbal instructions and mailed. documented in this encounter Plan of Treatment Not on file documented as of this encounter Visit Diagnoses Not on filedocumented in this encounter Care Teams Waste Disposal Attendant Relationship Specialty Start Date End Date Enmanuel Gan MD [address] [place] [address] PCP - General Internal Medicine 04/26/20 Tg [place] MD [address] [place] [address] Consulting Physician Cardiology 07/18/20 Guerrero Hunter DPT [address] [facility] [address] [facility] [place] [address] Physical Therapist Physical Therapy 11/08/20 Guerrero Weiner [facility] [id number] [place] [address] Metaphysicist Physical Therapy 12/12/20 documented as of this encounter
--- OUTSIDE RECORDS SUMMARY | 2024-07-12 08:48 | XMS_ITS | Encounter Summary ---
Author Organization [facility] Address [address] [place] [address] Phone Care Team Providers Care Four Corner Former Machine Operator Name Role Phone Enmanuel Gan MD Primary Care Provider [phone] Tg [place] MD Unavailable [phone] Guerrero Hunter DPT Unavailable [phone] Guerrero Weiner CHILD DEVELOPMENT DIRECTOR Unavailable [phone] Reason for Visit * Reason Comments PT Treatment * Consultation (Routine) - Closed Specialty Diagnoses / Procedures Referred By Contac t Referred To Contact Physical Therapy Diagnoses Post-operative pain S/P spinal fusion Jeremy Michelle MD [address] [facility] [address] [place] [address] Phone: tel: fax: [facility] (All Locations) Referral ID Status Reason Start Date Expiration Date V isits Requested Visits Authorized [id number] Closed Specialty Services Required 11/02/2020 11/02/2021 24 24 Encounter Details Date Type Department Care Team (Late st Contact Info) Description 09/27/2021 3:30 PM SALES ADVISORY MANAGER Therapy [facility] Physical Therapy [address] [facility] 1st [address] [place] [address] Guerrero Weiner, CHILD DEVELOPMENT DIRECTOR [address] [facility] [address] [place] [address] Chronic bilateral low back pain without sciatica (Primary Dx) Social History Tobacco Use Types [...] often do you attend chur ch or mu-ism services? Never 07/30/2020 Do you belong to [...] file Legal Sex Female 9:09 PM SALES ADVISORY MANAGER Gender Identity Not on file Sexual Orientation Lesbian 05/24/2019 9: 06 AM CDT documented as of this encounter Progress Notes * Guerrero Weiner, CHILD DEVELOPMENT DIRECTOR - 09/27/2021 3:30 PM CST PT Daily Treatment Note Macie Briseno 1945 COVID-19 Screening: Patient was pre-screened in [facility] prior to entering clinic space and passed. Passed screening determines patient has no current fever, cough, SOB, loss of sense of taste or sense of smell, body aches, or sore throat. Patient has not been exposed to anyone suspected of having COVID-19 in the past 14 days. Total therapy visits: 15 Order Information Expiration: 11/02/2021 Authorized visits: 24 Visits remainin Insurance Authorizations Insurance: [facility] MEDICARE ADV Auth expiration: Data deleted Authorized visits: 99 Visits remainin Plans of Care Sent to Physician: 11/08/2020 Valid from: 11/08/2020 Valid to: 02/07/2021 Additional Information: 11/07/[id number] MEDICARE ADVANTAGE (PPO)-NO AUTH OR REF REQ-PT/ST COMBINED-NO VISIT LIMIT-VISITS ARE BASED ON MEDICAL NECESSITY-TELEHEALTH IS COVERED.(CC) Subjective: Patient reports things have been pretty good. She had an injection in the SIJ shortly after her last visit, and it seemed to be beneficial. She went in to the massage therapist 2 days ago for the first time in years and tolerated it pretty well. She did notice yesterday/today some tightness and soreness in the left glute area from the massage. She has noticed some leg cramping in her lower leg recently, and plans on getting it checked out soon. She has been wearing her SIJ strap/belt, and does feel better with it on, in particular when doing an activity. She has been trying to be mindful of her posture and mechanics. 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 HEP THERAPEUTIC EXERCISE Parameters Comments x x Sit to/from stand x x Sitting/Hooklying bilateral hip abd/LR Green TB x x Hooklying bilateral shoulder flexion Red TB THERAPEUTIC ACTIVITY Parameters Comments x Patient education -Anatomy & kinesiology education -Tissue susceptible to movement and movement pattern correction (lumbar spine, gluteal and LE musculature) -Sitting and standing posture -sit to/from stand -lifting technique -bed mobility -Home Exercise Program Next visit: + hip lateral rotation strength + emphasis on avoiding hip adduction/MR throughout functional mobility + lower abdominals as able Patient was educated about the following activities: Direction susceptible to movement and movement correction, Home Exercise Program, Lifting, Sit to/from Stand and Sleep position Assessment/Plan: Patient presents this date with report of improving symptoms, noting less pain and better activity tolerance. She recently received an injection, and feels it was beneficial. She verbalized better mindfulness and awareness of her body mechanics. She was able to perform exercises with cuing to ensure proper muscle activation/stretching. No increase in symptoms throughout and after the treatment. Patient would benefit from continued skilled therapy for education and progression of strength to work towards goals and return to normal functional abilities. Total Treatment Time: 30 minutes Treatment this date was provided by a licensed Physical Therapist Operational Test Mechanic. There was on-site supervision of the Physical Therapist Operational Test Mechanic by a Physical Therapist when the treatment was performed. Guerrero Weiner PTA Cosigned by Lorena Jraamillo DPT at 09/29/2021 6:48 PM SALES ADVISORY MANAGER S ADVISORY MANAGER S ADVISORY MANAGER documented in this encounter Plan of Treatment Not on file documented as of this encounter Visit Diagnoses Diagnosis Chronic bilateral low back pain without sciatica- Primary documented in this encounter Care Teams Four Corner Former Machine Operator Relationship Specialty Start Date End Date Enmanuel Gan MD [address] [facility] [address] INTERNAL MEDICINE [place], [place] [id number] PCP - General Internal Medicine 04/26/20 Tg [place] MD [address] [facility] [address] [place] [address] Consulting Physician Cardiology 07/18/20 Guerrero Hunter DPT [address] [facility] [address] [place], [place] [id number] Physical Therapist Physical Therapy 11/08/20 Guerrero Weiner, CHILD DEVELOPMENT DIRECTOR [address] [facility] [address] [place], [place] [id number] Buffet Attendant Physical Therapy 12/12/20 documented as of this encounter
--- OUTSIDE RECORDS SUMMARY | 2024-07-12 08:48 | XMS_ITS | Encounter Summary ---
Author Organization [facility] Address [address] [place] [address] Care Team Providers Care Chorus Master Name Role Phone Enmanuel Gan MD Primary Care Provider [phone] Tg [place] MD Unavailable [phone] Guerrero Hunter DPT Unavailable [phone] Guerrero Weiner PRESCHOOL AIDE Unavailable [phone] Encounter Details Date Type Department Care Team (Late st Contact Info) Description 09/05/2021 Telephone [facility] [address] [place] [address] Khalif Jennings MD [address] [place] [address] [address] [place], [place] [id number] Social History Tobacco Use Types Packs/Day Years [...] How often do you attend chur or jehovah's witness services? 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 [address] Jennings on 09/06/21 at 0950. Instructed mask is required. Instructed only 1 visitor over age of 16 allowed. COVID questions addressed. To reschedule or for questions/concerns call [phone]. ER COUNSELOR documented in this encounter Plan of Treatment Not on file documented as of this encounter Visit Diagnoses Not on filedocumented in this encounter Care Teams Chorus Master Relationship Specialty Start Date End Date Enmanuel Gan MD [address] [place] [id number] PCP - General Internal Medicine 04/26/20 Tg [place] MD [address] [facility] [address] [place] [address] Consulting Physician Cardiology 07/18/20 Guerrero Hunter DPT [address] [facility] [address] [facility] [place] [address] Physical Therapist Physical Therapy 11/08/20 Guerrero Weiner, [facility] [address] [facility] [address] [place], [place] [id number] Hands Parter Physical Therapy 12/12/20 documented as of this encounter
--- OUTSIDE RECORDS SUMMARY | 2024-07-12 08:48 | XMS_ITS | Encounter Summary ---
Author Organization [facility] Address [address] [place] [address] Phone Care Team Providers Care Rn Case Manager Hospice Name Role Phone Enmanuel Gan MD Primary Care Provider [phone] Tg Houston MD Unavailable [phone] Guerrero Hunter DPT Unavailable [phone] Guerrero Weiner PTA Unavailable [phone] Reason for Visit * Reason Comments PT Re-Eval * Consultation (Routine) - Closed Specialty Diagnoses / Procedures Referred By Contac t Referred To Contact Physical Therapy Diagnoses Post-operative pain S/P spinal fusion Jeremy iMchelle MD [address] [facility] [place] [address] Phone: tel: fax: [facility] (All Locations) Referral ID Status Reason Start Date Expiration Date V isits Requested Visits Authorized [id number] Closed Specialty Services Required 11/02/2020 11/02/2021 24 24 Encounter Details Date Type Department Care Team (Late st Contact Info) Description 09/02/2021 12:45 PM SCAN COORDINATOR Therapy [facility] Physical Therapy [address] [facility] 1st Floor [address] [place] [id number] Guerrero Hunter DPT [address] [facility] [address] [place] [address] Chronic bilateral low back pain without sciatica [...] on file Legal Sex Female 9:09 PM SCAN COORDINATOR Gender Identity Not on file Sexual Orientation Lesbian 05/24/2019 9: 06 AM CDT documented as of this encounter Progress Notes * Guerrero Hunter, DPT - 09/02/2021 12:45 PM CST Physical Therapy Re-Evaluation Macie Briseno 1945 76 y.o. female Jeremy Michelle MD [address] [facility] 6A/6B[address]12A [place] [address] ICD-9-CM ICD-10-CM 1. Chronic bilateral low back pain without sciatica 724.2 M54.50 338.29 G89.29 Date of Service: 09/02/2021 Subjective History: History of current complaint: Patient presents with continued symptoms in her lower back. Her pain is largely associated with her activity that builds up over the day that cause intense fatigue and stiffness in her lumbar erector spinae. She continues to wear her SI belt on a consistent basis. She does have trouble sleeping, but notes that her trouble is not solely due to the pain in her back. Current pain: 0/10 Best pain: 0/10 Worst pain: 6/10 Symptoms worsen with: prolonged standing, lifting/moving objects Symptoms improve with: sitting Preferred sleeping position: no preferred position Goal(s): decrease pain, improve ADL performance and prevent recurrence Objective Standing Alignment Thoracic spine: kyphotic and swayback Lumbar spine: flat Pelvis: posterior tilt and rotated left Iliac crest height (preferred): right high Iliac crest height (feet apart): level Hip Right femoral medial rotation Left femoral medial rotation Knee Right hyperextended and valgus Left hyperextended and valgus L>R Movement Testing Standing: Forward Bend/Return Movement Pattern Symptoms Symptoms Modifable with Correction? Forward lumbar spine > hips, thoracic spine > lumbar spine and hips > lumbar spine no change N/A Return lumbar extension no change N/A Standing: Trunk Rotation: ROM R=L Movement Pattern Symptoms Femoral rotation Symptoms Modifable with Correction? Right normal no change N/A Left normal no change N/A Standing: Trunk Sidebend: ROM R=L Movement Pattern Symptoms Symptoms Modifable with Correction? Right pivot point in spine no change N/A Left pivot point in spine no change N/A Effect of Decompression on Symptoms: no change Single Leg Stance Movement Pattern Symptoms Symptoms Modifable with Correction? Right femoral medial rotation and Positive trendelenberg no change N/A Left femoral medial rotation and Positive trendelenberg no change N/A Preferred Sitting: at edge of seat Functional Mobility Movement Pattern Symptoms Symptoms Modifable with Correction? Rolling Segmental - shoulders then hips increase Yes Supine to/from Sit Lumbar extension rotation using lower limbs for counter- balance increase Yes Sit to/from Stand hip adduction/medial rotation, knee hyperextension and lumbar extension increase Yes Gait: deferred to follow-up visit Pain: Movement pattern: Symptoms modifiable? 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 HEP THERAPEUTIC EXERCISE Parameters Comments New x Sit to/from stand NEURO RE-ED Parameters Comments THERAPEUTIC ACTIVITY Parameters [...] Sit to/from Stand and Sleep position Assessment/Plan: Chief Complaint PT Re-Eval Patient is a 76 y.o.-year-old female who presents to physical therapy with a chief complaint of lowback pain. During examination pain was provoked with bed mobility, sit to/from stand, standing posture. Signs and symptoms are consistent with a movement diagnosis of lumbar extension rotation syndrome with deconditioning. Pt stands with kyhpotic thoracic spine, flat lumbar spine, swayback, posterior tilt and L rotated pelvis, bilateral femoral medial rotation, bilateral knee hyperextension and valgus. Additional factors leading to diagnosis include: decreased functional strength/neural controlof gluteal musculature. Other contributing or associated factors include: PMH signfiicant for lumbar fusion T12-L4. Will benefit from PT for patient education, strengthening, stretching, ROM, HEP, taping PRN, modalities PRN, functional mobility training and stretching/strengthening to address the muscles listed above as well as for neuromuscular re - education to improve movement pattern with functional activities. Fair prognosis. Patient consented to treatment and plan. Short Term Goals: (5 weeks) Goal Description New Ongoing Partially Met Met Deferred The patient will decrease c/o pain with functional activities to 4-5/10 at worst. X The patient will demonstrate improved static posture in standing and sitting. X The patient will demonstrate improved movement pattern with sit to/from stand, lifting technique. X The patient will be independent with strategies designed to help manage symptoms with the followingactivities: ADLs X The patient will demonstrate HEP with minimal guidance X Afloat Cryptologic Manager Goals: (10 weeks) Goal Description New Ongoing Partially Met Met Deferred The patient will decrease c/o pain with functional activities to 3-4/10 at worst. X The patient will perform the following functional activities without pain: sleeping and bed mobility. X The patient will be independent with strategies designed to help manage symptoms with the followingactivities: ADLs and rec activities as desired. X The patient be independent with final HEP needed for sustained correction of movement impairments. X Frequency/Duration: 1x/week for 8-10 weeks Total treatment time: 45 min Guerrero Hunter DPT COORDINATOR documented in this encounter Plan of Treatment Not on file documented as of this encounter Visit Diagnoses Diagnosis Chronic bilateral low back pain without sciatica- Primary documented in this encounter Care Teams Rn Case Manager Hospice Relationship Specialty Start Date End Date Enmanuel Gan MD [address] [facility] [address] [place] [address] PCP - General Internal Medicine 04/26/20 Tg Houston MD [address] [facility] [address] [place] [address] Consulting Physician Cardiology 07/18/20 Guerrero Hunter DPT [address] [facility] [address] [place] [address] Physical Therapist Physical Therapy 11/08/20 Guerrero Weiner, SALES PROMOTION REPRESENTATIVE [address] [facility] [address] [place] [address] Hammer Adjuster Physical Therapy 12/12/20 documented as of this encounter
--- OUTSIDE RECORDS SUMMARY | 2024-07-12 08:48 | XMS_ITS | Encounter Summary ---
Author Organization [facility] Address [address] [place] [address] Phone Care Team Providers Care Bearing Ring Assembler Name Role Phone Enmanuel Gan MD Primary Care Provider [phone] Tg Houston MD Unavailable [phone] Guerrero Hunter DPT Unavailable [phone] Guerrero Weiner FINISHING MACHINE OPERATOR Unavailable [phone] Reason for Visit * Audiology (Routine) - Closed Specialty Diagnoses / Procedures Referred By Contac t Referred To Contact Audiology Diagnoses Sensorineural hearing loss, bilateral Procedures Evaluation, cochlear implant programming and auditory rehabilitation per [facility] adult cochlear implant protocol Darshana Toth MD [address] [place] [address] Phone: tel: fax: [facility] [address] [facility] 11th [place] [address] [place] [address] Phone: tel: fax: Referral ID Status Reason Start Date Expiration Date Visits Re quested Visits Authorized [id number] Closed 06/10/2021 07/10/2022 1000 1000 Encounter Details Date Type Department Care Team (Latest Contact Info) Description 11/12/2021 2:00 PM CDT Procedure visit [facility] Ot[facility] [address] [facility] 11th [place] [address] [place] [address] Norma Oliveira Au.D. [address] [place] [address] Sensorineural hearing loss, bilateral (Primary Dx) Social [...] on file Legal Sex Female 9:09 PM REPORTS DEVELOPER Gender Identity Not on file Sexual Orientation Lesbian 05/24/2019 9: 06 AM CDT documented as of this encounter Procedure Notes * Norma Oliveira Au.D. - 11/12/2021 2:00 PM CDT Procedures Cochlear Implant (Active) L/R/Bilateral left Stock Analyst Cochlear Sovran Self Storages Internal [id number] External Kanso 2/dunlap/3(I) Provider [facility] Date of CI surgery 06/19/20 Date of IS 07/09/20 MAPS in Processor: SCAN+all IP, 1200 ALLEGRA V6, S12 P1: Map 13 COUCH(RE): [employer] YURI, outside provider SERVICES PROVIDED: Subsequent Programming PROCEDURES: The patient attended the session alone. She reports: - Hearing sounds a bit muddled for at least a few weeks - had hearing aid checked and it was ok - hasn't changed processor filter since June 2021 Changed filter in session - Patient reported good sound with filter change. wearing P1 but not sure volume and sensitivity Programming was completed to optimize current map parameters and to ensure optimal settings. See custom sound software for details this date. A head check was completed and magnet was tight, but no redness with slight indentation. Impedances were measured and were all okay and stable. Patient's preferred map was opened: Map 12. C levels were swept and balanced; rated medium soft to medium. T levels were swept and balanced at 50%; rated soft. Some changes were made in the mid portion of the array to both Ts and Cs. When live Cs were increased globally by 3 for comfort. Together with COUCH, volume was comfortable and balanced- medium loud. The patient reported improved sound with these changes This was saved as Map 13 and Program was loaded as indicated above. The patient did not bring her back up processor and therefore it could not be updated. It was be updated at patient's next visit. The note as documented above reflects my personal service. IMPRESSIONS/PLAN: Return for 18 month evaluation in December 2021 or sooner if needed Consider purchasing a CI-compatible hearing aid for the right ear documented in this encounter Plan of Treatment Not on file documented as of this encounter Visit Diagnoses Diagnosis Sensorineural hearing loss, bilateral- Primary documented in this encounter Orders Audiology Count Last Ordered Date First Orde red Date EVALUATION, COCHLEAR IMPLANT PROGRAMMING AND AUDITORY REHABILITATION 1 11/12/2021 documented in this encounter Care Teams Bearing Ring Assembler Relationship Specialty Start Date End Date Enmanuel Gan MD [address] [place] [address] PCP - General Internal Medicine 04/26/20 Tg Houston MD [address] [facility] [address] [place] [address] Consulting Physician Cardiology 07/18/20 uGerrero Hunter DPT [address] [facility] [address] [facility] [place] [address] Physical Therapist Physical Therapy 11/08/20 Guerrero Weiner, [facility] [address] [facility] [address] [place] [address] Clinical Mental Health Counselor Physical Therapy 12/12/20 documented as of this encounter
--- OUTSIDE RECORDS SUMMARY | 2024-07-12 08:48 | XMS_ITS | Encounter Summary ---
Author Organization [facility] Address [address] [place] [address] Phone Care Team Providers Care Guitar Player Name Role Phone Enmanuel Gan MD Primary Care Provider [phone] Tg Houston MD Unavailable [phone] Guerrero Hunter DPT Unavailable [phone] Guerrero Weiner CHIEF OPERATOR LOCK TENDER Unavailable [phone] Reason for Referral * Procedure (Routine) - Closed Specialty Diagnoses / Procedures Referred By Gigi orosco Referred To Contact Diagnoses Trochanteric bursitis of left hip Procedures Greater trochanteric bursa injection Naila Mckeon NP [address] [facility] [place] [address] Phone: tel: fax: [facility] (All Locations) Referral ID Status Reason Start Date Expiration Date Visits Re quested Visits Authorized [id number] Closed 08/20/2021 09/19/2022 1 1 INE LACER Reason for Visit * Reason Comments Return Patient Encounter Details Date Type Department Care Team (Late st Contact Info) Description 08/20/2021 3:00 PM MACHINE LACER Office Visit [facility] Orthopaedic Surgery [address] [facility] 12th [place] [address] [place] [address] Naila Mckeon, MEDICAL BILLING CLERK [address] [facility] [place] [address] Trochanteric bursitis of left hip (Primary Dx) Social History Tobacco Use Types [...] often do you attend chur ch or jehovah's witness services? Never 07/30/2020 Do [...] on file Legal Sex Female 9:09 PM MACHINE LACER Gender Identity Not on file Sexual Orientation Lesbian 05/24/2019 9: 06 AM CDT documented as of this encounter Last Filed Vital Signs Vital Sign Reading Time Taken Comments Blood Pressure - - Pulse - - Temperature - - Respiratory Rate - - Oxygen Saturation - - Inhaled Oxygen Concentration - - Weight 76.2 kg (168 lb) 08/20/2021 3:04 PM MACHINE LACER Height 162.6 cm (5' 4 ) 08/20/2021 3:04 PM MACHINE LACER Body Mass Index 28.84 08/20/2021 3:04 PM MACHINE LACER documented in this encounter Patient Instructions * Patient Instructions* Travon Claudio CMA - 08/20/2021 3:00 PM MACHINE LACER Thank you for your visit today. Dr. Richie Quezada/Naila Mckeon NP has recommended the followingtreatment: No follow up scheduling at this time. Please let me know if you have any questions. JEANNE Godoy II Reversal Print Inspector to Dr. Richie Quezada/Naila Mckeon NP Department of Orthopedic Spine Surgery [facility] [place] [address] P: [phone] F: [phone] INE LACER documented in this encounter Progress Notes * Naila Mckeon NP - 08/20/2021 3:00 PM CSTAssociated Order(s): Greater trochanteric bursa injection Established Patient Visit Interim History Macie Briseno was referred to my office by Dr. Jeremy Michelle for assessment and potential injection of left greater trochanteric bursitis. The patient endorses left lateral hip pain that is worse with walking. She reports it is painful to lay on that side and painful to touch. It has been significantly inhibiting her activity. She has a history of bursitis in both hips, and states this pain feels very similar. She states that she has undergone trochanteric bursa injections before, which helped her symptoms. Physical Examination WEIGHT/BMI: Estimated body mass index is 28.84 kg/m?? as calculated from the following: Height as of this encounter: 162.6 cm (5' 4 ). Weight as of this encounter: 76.2 kg (168 lb). CONSTITUTIONAL: In general, patient is well appearing, is alert, and is in no acute distress. PSYCH: Mood and affect are appropriate. HEENT: Pupils equal and reactive to light. Neck symmetric without obvious masses. RESPIRATORY: Breathing is nonlabored with no audible wheezing. CARDIOVASCULAR/VASCULAR: Peripheral pulses are palpable and there is no evidence of peripheral edema. SKIN: No obvious rashes, ulcers, or open wounds. MUSCULOSKELETAL: The patient ambulates with a normal gait. She stands in normal coronal and sagittal alignment. She has moderate to severe tenderness to palpation over her left greater trochanteric bursa. Internal and external rotation of her hips does not exacerbate her symptoms. NEUROLOGIC: The patient demonstrates normal hip abductor and flexor strength on both static and dynamic testing. Sensation to light touch is intact. Impression/Diagnosis Left greater trochanteric bursitis. Treatment Plan I discussed with the patient that her symptoms are consistent with of the greater trochanteric bursitis. We reviewed the natural history and etiology of this condition. I emphasized the importance ofhip abductor and flexor strengthening for long-lasting improvement of the symptoms. I offered the pa julieta a prescription for physical therapy focusing on these modalities, or she could request one from Dr. Michelle's office. She declined today, but states it may be helpful in the future. We reviewedthe pros and cons of doing a left greater trochanteric bursa injection in office today. Risks include but are not limited to worsening symptoms, infection, and allergic reaction. The patient verbalized understanding and has given her informed consent to proceed. Please see procedure note below. I instructed the patient to use Tylenol, NSAIDs, or ice for increased pain/inflammation due to injection. We discussed that the full benefit can take up to 2 weeks to see effect. She is welcome to followup in my office on an as-needed basis if she needs additional injections. Naila Mckeon DNP, REGIONAL TELECOMMUNICATIONS SPECIALIST, POLISHER IMPLANT-C Nurse Practitioner [facility] Orthopedics Division of Spine Surgery In collaborative practice with Dr. Richie Quezada Global Supply Chain Vice President done by [employer]; variances and inaccuracies may occur. Greater trochanteric bursa injection Performed by: Naila Mckeon NP Authorized by: Naila Mckeon NP Greater Trochanteric Bursa Injection: Consent Given by: Patient Verbal consent obtained?: Yes Prior to the start of the procedure, verbal verification by the procedure participant(s) confirmed (as applicable): corect patient idenity; correct site/side marked and visible; agreement on the procedure to be done; correct patient positioning; an accurate procedure consent form, relevant images and results correctly labeled and displayed; any safety precautions based on clinical history and/or medication use have been addressed.: Supporting Documentation: Indications: Pain Procedure Details: Site: Left Greater Trochanteric Bursa Patient position: Sidelying Needle Size: 22 G Ultrasound guidance: No Approach: Lateral Medications: 9 mL lidocaine 10 mg/mL (1 %); 40 mg triamcinolone 40 mg/mL The patient reported: Good Patient tolerance: Patient tolerated the procedure well with no immediate complications Prior to procedure potential risks and benefits were discussed with the patient, and they gave their informed consent to proceed. INE LACER documented in this encounter Plan of Treatment Not on file documented as of this encounter Procedures Procedure Name Priority Date/Time Associated Diagnosis Comments MD ARTHROCENTESIS ASPIR&/INJ MAJOR JT/BURSA W/O US Routine 08/20/2021 3:00 PM MACHINE LACER Trochanteric bursitis of left hip documented in this encounter Results * MD ARTHROCENTESIS ASPIR&/INJ MAJOR JT/BURSA W/O US (08/20/2021 3:00 PM MACHINE LACER) Narrative Naila Mckeon NP - 08/20/2021 3:00 PM MACHINE LACER Naila Mckeon NP ? 08/31/2021 ??4:56 PM Greater trochanteric bursa injection Performed by: Naila Mckeon NP Authorized by: Naila Mckeon NP Greater Trochanteric Bursa Injection: ??Consent Given by: ??Patient Verbal consent obtained?: Yes ?? Prior to the start of the procedure, verbal verification by the procedure participant(s) confirmed (as applicable): corect patient idenity; correct site/side marked and visible; agreement on the procedure to be done; correct patient positioning; an accurate procedure consent form, relevant images and results correctly labeled and displayed; any safety precautions based on clinical history and/or medication use have been addressed.: Supporting Documentation: ??Indications: ??Pain Procedure Details: ??Site: ??Left Greater Trochanteric Bursa ??Patient position: ??Sidelying ??Needle Size: ??22 G ??Ultrasound guidance: No ?Approach: ??Lateral ??Medications: ??9 mL lidocaine 10 mg/mL (1 %); 40 mg triamcinolone 40 mg/mL ??The patient reported: ??Good ??Patient tolerance: ??Patient tolerated the procedure well with no immediate complications ?? Prior to procedure potential risks and benefits were discussed with the patient, and they gave their informed consent to proceed. Naila Mckeon MEDICAL BILLING CLERK IN CLINIC/[facility]SIDE [facility] Final Result documented in this encounter Visit Diagnoses Diagnosis Trochanteric bursitis of left hip- Primary documented in this encounter Administered Medications Inactive Administered Medications - up to 3 most recent administrations Medication Order MAR Action Action Date Dose Rate Site lidocaine (XYLOCAINE) 10 mg/mL (1 %) injection 9 mL 9 mL, One-Time Injection, Starting on Thu08/20/21 at 1636, For 1 dose, Indications: Administration of Local AnesthesiaIndications:Administratio n of Local Anesthesia Given 08/20/2021 4:36 PM MACHINE LACER 9 mL triamcinolone (KENALOG) 40 mg/mL injection 40 mg 40 mg, intra-articular, One-Time Injection, Starting on Thu08/20/21 at 1636, For 1 doseIndications:Trochanteric bursitis of left hip Given 08/20/2021 4:36 PM MACHINE LACER 40 mg documented in this encounter Care Teams Guitar Player Relationship Specialty Start Date End Date Enmanuel Gan MD [address] [facility] [address] [place] [address] PCP - General Internal Medicine 04/26/20 Tg Houston MD [address] [facility] [address] [place] [address] Consulting Physician Cardiology 07/18/20 Guerrero Hunter DPT [address] [facility] [address] [facility] [place] [address] Physical Therapist Physical Therapy 11/08/20 Guerrero Weiner, CHIEF OPERATOR LOCK TENDER [address] [place] [address] Senior Operator Physical Therapy 12/12/20 documented as of this encounter
--- OUTSIDE RECORDS SUMMARY | 2024-07-12 08:49 | XMS_ITS | Encounter Summary ---
Author Organization [facility] Healthcare Address [address] [place] [address] Care Team Providers Care Regional Owner Operator Truck Driver Name Role Phone Enmanuel Gan MD Primary Care Provider [phone] Tg Houston MD Unavailable [phone] Guerrero Hunter DPT Unavailable [phone] Guerrero Weiner STICKER HAND Unavailable [phone] Encounter Details Date Type Department Care Team (Latest Contact Info) Description 06/05/2021 6:32 AM DRAPERY CUTTER - 06/05/2021 3:28 PM DRAPERY CUTTER Hospital Encounter [facility] Electrophysiology Lab [address] [place] [address] Ashvin Recio III, MD [address] [address] AV block, 2nd degree; NICM (nonischemic cardiomyopathy) (CMS/HCC) (FORMERLY [facility]) Discharge Disposition: Discharge to home or self [...] on file Legal Sex Female 9:09 PM DRAPERY CUTTER Gender Identity Not on file Sexual Orientation Lesbian 05/24/2019 9: 06 AM CDT documented as of this encounter Last Filed Vital Signs Vital Sign Reading Time Taken Comments Blood Pressure 139/73 06/05/2021 10:00 AM DRAPERY CUTTER Pulse 75 06/05/2021 12:00 PM DRAPERY CUTTER Temperature 36.1 ??C (97 ??F) 06/05/2021 9:25 AM DRAPERY CUTTER Respiratory Rate 12 06/05/2021 12:0 0 PM DRAPERY CUTTER Oxygen Saturation 96% 06/05/2021 12: 00 PM DRAPERY CUTTER Inhaled Oxygen Concentration - - Weight 74.8 kg (164 lb 14.5 oz) 06/05/2021 7:23 AM DRAPERY CUTTER Height 166.4 cm (5' 5.5 ) 06/05/2021 7:23 AM DRAPERY CUTTER Body Mass Index 27.02 06/05/2021 7:23 AM DRAPERY CUTTER documented in this encounter Discharge Instructions * Discharge Instructions* Francisco Chavis RN - 06/05/2021 2:57 PM DRAPERY CUTTER Images from the original note were not included. Cardiac Laboratory [address] [place], [place] [address] [facility] Discharge Instructions---Implant MEDICATIONS [] Home Medications Returned [] Discharge Medication Reconciliation Reviewed [] Prescriptions sent home with patient and instructions given for usage [x] ANTIBIOTICS What you Should Know Information provided and reviewed. INCISION CARE DO NOT apply any kind of powder or lotion to your incision [x] Keep your incision site as dry as possible. [x] DO NOT submerge your incision site in any water for days. This includes pools, tub baths, lakes, conley, ponds and hot tubs. [] Your site has a dressing over the incision -You may shower after days. -Keep the dressing clean and dry -Do not remove the dressing until [] Your incision has steri strips. Do not remove the steri strips. Allow them to fall off on their own. [] Your physician has used surgical glue on your incision. Allow it ot slough off-do not attempt toremove this adhesive. [] You may shower immediately after your procedure. DIET [x] Resume home diet [] Special diet Instructed by Foot Cutter ACTIVITY You have been given medications which helped make you comfortable during your procedure. The relaxing effects of these medications may continue for the rest of the day. For your safety: [x] Do not drive or operate hazardous machinery for the next 24 hours [x] Do not make important personal or business decision or sign legal documentation for the next 24hours [x] Resume normal activity in days. [x] Resume driving after 24 hours provided your discomfort level at the operative site allows movement required to drive. DO NOT [x] Raise your affected arm above your head for four weeks after your device is placed. [x] Lift anything heavier than 10 pounds with the affected arm for four weeks after your device is placed. [x] You may sleep with your arm sling around your shoulder as necessary to prevent you from raisingyour arm above your head while sleeping. SPECIAL INSTRUCTIONS Soreness and/or tenderness at the incision site may last about 1 week. You may have some bruising that may last several weeks. Please notify your physician immediately if you develop any of the following: Pain Assessment: 0-10 Pain Score: 9 Significant bleeding at the procedure site that does not stop after applying firm pressure directly on the incision for 10 minutes. [x] Swelling of the incision area [x] Unusual pain at the incision site. [x] Signs of infection which may include: - fever or chills - drainage from the incision - significant redness/warm to the touch at the procedure site - incision does not heal FOLLOW UP CARE [] Call physician's office for appointment [] Appointment scheduled for: with Additional Instructions: I understand and have received a copy of my discharge instructions Patient/Family Signature: Staff Signature/Title: Date and Time: [facility] Discharge Instructions New pacemaker/defibrillator implant Wound Care ??? Remove clear/white dressing tomorrow. Do NOT remove steri strips. ??? Keep wound dry for one week (no showers). ??? Do not remove steri-strips, as these are protecting your wound. They will fall off on their own. ??? After 1 week, you may shower. You may ???pat dry?? your incision with a towel. Do Not Use Soapor ointments on the wound. Do not ???submerge?? the incision (i.e., with a bath) for 4 weeks. ? ? Notify the physician at the office if you develop fever > 100.4, chills, increasing swelling, redness or drainage from your pacemaker site. ??? If you have a moderate amount of discomfort at the site, you may apply an ice pack for 20 minutes 3 times a day for one week. Activity ??? No driving for 1 week. ??? No lifting affected arm above shoulder for 6 weeks. This will ensure that your leads are well attached to your heart and avoid dislodgement. ??? You will receive a sling the day of your procedure. You may choose to wear this at night as a reminder to keep your arm below your shoulder level during the first 6 weeks. ??? Do not lift anything heavier than 10 lbs with the affected arm for 4 weeks. (A gallon of milk). ID Card ??? You will receive a temporary card from the device [employer]. Carry this in your wallet until yourpermanent card arrives, usually in 6-8 weeks. ??? A monitor will be sent home with you, please read the instructions and loom fixer supervisor the monitor. Additional Instructions ??? Extra Strength Tylenol may be taken every 6 hours as needed for pain. ??? You should avoid strong magnetic currents (large electrical generators, arc welding). You can operate any home electrical appliances including microwave ovens. ??? Notify the physician office at [phone], immediately if you develop abrupt dizziness or shortness of breath. If you feel there is an urgent matter, call 911 or go to the emergency room. ??? Call the office at [phone] with any questions or concerns. Call to schedule a follow-up appointment / wound check. This should be done in the first 7-10 days following your procedure. Ashvin Recio III, M.D. Cardiac Electrophysiology [facility] 04/16/2021 ERY CUTTER documented in this encounter Medications at Time [...] total) by mouth every morning 12/21/2019 4 fexofenadine-pseud oephedrine (THELMA-D) 60-120 mg per [...] every morning 4 montelukast (SINGULAIR) 10 mg tabletIndications: Seasonal Allergic Rhinitis Take 10 mg by mouth nightly 10/25/2018 1 potassium chloride ER 20 mEq CR tabletIndications: supplement Take 2 tablets (40 mEq total) by mouth every morning 06/29/2020 4 sucralfate (CARAFATE) 1 gram tablet Take 2 tablets (2 g total) by mouth 2 (two) times a day as needed 4 triamterene-hydroC HLOROthiazide 37.5-25 mg per capsule TAKE ONE CAPSULE BY MOUTH ONCE DAILY 90 capsule 3 11/17/2019 3 cephalexin (KEFLEX) 500 mg capsule Take 1 capsule (500 mg total) by mouth 2 (two) times a day for 5 days 10 capsule 06/05/2021 1 Eliquis 5 mg tabletIndications: atrial fibrillation Take 1 tablet (5 mg total) by mouth 2 (two) times a day 04/23/2021 4 senna-docusate (PERICOLACE) 8.6-50 mgIndications:cons tipation Take 2 tablets by mouth 2 (two) times a day for 14 days 56 tablet 07/29/2020 4 documented as of this encounter Ordered Prescriptions Prescription Sig Dispense Quantity Refills Last Filled Start Date End Date cephalexin (KEFLEX) 500 mg capsule Take 1 capsule (500 mg total) by mouth 2 (two) times a day for 5 days 10 capsule 06/05/2021 1 documented in this encounter Discharge Disposition Disposition Code Departure Means Destination Discharge to home or self care documented in this encounter H&P Notes * Ashvin Recio III, MD - 06/05/2021 7:06 AM CST [facility] Arrhythmia Center: Focused H&P Patient ID Macie Briseno 1945 is a 75 y.o. female presenting on 06/05/2021 for an EP procedure. Please see prior outpatient clinic note for full detail. History HPI Macie Briseno is a 75 y/o woman with alternating bundle branch block, Mobitz 2 AV block and syncope, occurring in context of new diagnosis of hypertrophic cardiomyopathy. She wore an ambulatory rn cardiac cath demonstrating nonsustained ventricular tachycardia. She presents today for consideration of ICD implantation for management of her conduction system disease and sudden risk. Past Medical History Patient Active Problem List Diagnosis Date Noted ??? Fusion of spine of thoracolumbar region 05/06/2021 ??? AV block, 2nd degree 04/15/2021 ??? Apical variant hypertrophic cardiomyopathy (CMS/HCC) (FORMERLY [facility]) 04/15/2021 ??? Abnormal echocardiogram 04/08/2021 ??? Post-operative pain 09/04/2020 ??? Paroxysmal atrial fibrillation (CMS/HCC) (FORM[facility]) 07/16/2020 ??? Late effects of spine fusion 07/16/2020 ??? Prophylactic antibiotic 07/13/2020 ??? Acute low back pain 07/11/2020 Overview Note: Added automatically from request for surgery [id number] ??? History of spinal fusion for scoliosis 07/09/2020 ??? Abnormal ECG 05/24/2019 ??? 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 Facet arthritis of cervical region 04/30/2018 ??? Facet arthritis of lumbar region 04/30/2018 ??? Facet arthropathy, thoracic 04/30/2018 ??? Inflammatory spondylopathy of thoracic region (CMS/HCC) ([facility]) 04/30/2018 ??? Sensorineural hearing loss, asymmetrical 02/19/2018 ??? Foreign body in left ear 11/09/2017 ??? Microvascular angina (CMS/HCC) (FORM[facility]) 06/30/2017 ??? Dyslipidemia 06/30/2017 ??? Essential hypertension 06/30/2017 ??? Hx of decompressive lumbar laminectomy 04/05/2017 Overview Note: Overview: L4-5 and L5-S1 01/13/17 01/26/18: L2-3, L3-4 laminectomies, facetectomies, foraminotimies w/ fusion L3-5 ??? Essential hypertension, benign 04/13/2015 ??? Orthopedic aftercare 12/29/2014 ??? S/P hip replacement 10/19/2014 Overview Note: Overview: Left 07/07/14 Right 11/24/14 ??? Follow-up examination following surgery 08/02/2014 ??? Arthralgia of hip 05/16/2014 ??? Neck pain 01/18/2014 ??? Lumbago 11/24/2013 ??? Tinnitus, subjective 07/01/2013 ??? Active cochleovestibular Meniere's disease 08/18/2012 ??? Sensorineural hearing loss (SNHL) of both ears 08/18/2012 ??? Major depressive disorder, single episode, moderate ([facility]) 05/13/2012 ??? Tinnitus 04/26/2012 ??? Sudden idiopathic hearing loss of right ear 04/26/2012 ??? SNHL (sensory-neural hearing loss), asymmetrical 04/26/2012 ??? Lumbar radiculopathy 01/30/2012 ??? Pure hypercholesterolemia 06/24/2011 ??? Chronic nonseasonal allergic rhinitis due to pollen 05/17/2009 ??? Primary osteoarthritis involving multiple joints 05/17/2009 ??? S/P laparoscopic cholecystectomy 05/17/2009 Allergies Allergies Allergen Reactions ??? Adhesive Rash and Blisters Surgical tape ??? Chlorhexidine Rash ??? Sulfa (Sulfonamide Antibiotics) Hives and Rash ??? Gabapentin Other (See comments) Retain water Medications Please refer to medicine reconciliation form Physical Exam Physical Exam There were no vitals taken for this visit. General: No acute distress. Lungs: Clear to auscultation bilaterally. Cardiovascular: RRR Abdomen: Soft and non-tender. Extremities: Moving all extremities. Neuro: Grossly non-focal Treatment Plan Impression: 1. Syncope. 2. Distal conduction system disease, with Mobitz 2 AV block and alternating bundle branch block. 3. Nonsustained ventricular tachcyardia. 4. Hypertrophic cardiomyopathy, apical variant.. Plan: To EP lab for dual chamber ICD implantation. ERY CUTTER documented in this encounter Miscellaneous Notes * Op Note - Ashvin Recio III, MD - 06/05/2021 7:48 AM CST Images from the original note were not included. [facility] Arrhythmia Center Operative Report: Dual Chamber ICD Patient Name: Macie Briseno Date of : 1945 Primary Physician: Enmanuel Gan MD Procedure Date: 06/05/2021 - Name of procedure: 1. Placement of a dual chamber ICD 2. Subclavian venography History: 1. Syncope 2. Distal conduction system disease, with Mobitz 2 AV block and alternating bundle branch block. 3. Nonsustained ventricular tachycardia 4. Hypertrophic cardiomyopathy Methods: After informed consent was obtained, the patient was brought to the EP laboratory in a postabsorptive, nonsedated state. Peripheral IV access was established. Prophylactic antibiotics were administered prior to incision. Continuous ECG, blood pressure, and pulse oximetry were initiated. Cardioversion patch electrodes were placed on the patient's chest and back. A grounding patch was applied to the skin. Sedation was administered by the Anesthesia service. In order to define the extrathoracic portion of the subclavian vein and exclude significant venous obstruction or anomalous anatomy, subclavian venography was performed prior to the procedure. Using the patient's left arm peripheral IV, contrast was injected and images were recorded. The left subclavian vein and SVC were found to be widely patent. The left chest was prepared and draped in a sterile fashion. Local anesthesia was injected in the subcutaneous tissue in the infraclavicular area. An incision was made medial to the deltopectoral groove and parallel to the clavicle. The subcutaneous tissue was dissected the level of the prepectoralfascia. A subcutaneous pocket was created. Under fluoroscopic guidance and with the assistance of the images from the venogram, two venipunctures were made using micropuncture and modified Seldinger technique. These was performed in the extrathoracic portion of the subclavian vein. Guidewires were passed. Peel-away sheaths were placed, and used to advance the leads into the circulation. Using fluoroscopic guidance, the leads were positioned. The RV lead was advanced to the RV outflow tract. Ventricular ectopy was recorded. Images were taken in WHITT and [place] views to ensure appropriatelead placement. The lead tip was subsequently positioned in the RV apex. Adequate sensing and pacing parameters were found, and no diaphragmatic stimulation was seen with high-output pacing. Next, the right atrial lead was positioned in the right atrial appendage. Adequate sensing and pacing parameters were found, and no diaphragmatic stimulation was seen with high-output pacing. Both sheaths were split, and the leads were secured to the fascia with Ethibond ties. The pocket was flushed with antibiotic solution and hemostasis was assured. Floseal was applied. The generator was connected to the leads and placed inside the pocket. The wound was closed with 2 running layers of absorbable suture, and medical adhesive and steri-strips were applied. Defibrillator function testing was deferred. Following the procedure, the patient was taken to the recovery area in stable condition. A chest x-ray was obtained in the holding area. Lead parameters and device programming: - RA Lead: Model: Ingevity-52cm (serial #[id number]): Sensing 8.7 mV, Pacing threshold 0.5 V at 0.4ms,Imp 689 Ohm - RV Lead: Model: Yale-59cm (serial #[id number]): Sensing 25 mV, Pacing threshold 0.4 V at 0.4 ms, Imp 474 Ohm - Device: [employer] Dynagen EL defibrillator (#[id number]), programmed DDD 60-120 ppm - Zones: VT monitor 170, VF 200 Conclusions: 1. Successful placement of a dual-chamber defibrillator 2. Subclavian venography Recommendations: 1. Return to holding area for recovery and observation. 2. Portable chest x-ray in recovery area. PA/lateral chest x-ray in 4 hours. 3. One more dose of IV cefazolin in 4 hours prior to discharge. Home with cephalexin 500 mg PO BID x 5 days. 4. Device interrogation prior to discharge. 5. Hold Eliquis (apixaban) for 3 days post-procedure. OK to resume on 06/09/21. 6. Please remove outer dressing (tape and gauze) prior to discharge. Patient is to remove clear/white dressing tomorrow. Do not remove steri-strips. 7. OK for discharge today after 4 hours if the following parameters are met: 2- view CXR complete and reassuring, device check complete and reassuring, IV antibiotics given and patient feeling well. 8. Follow-up will be arranged in the Arrhythmia Center 7-10 days post-discharge Ashvin Recio III, M.D. Cardiac Electrophysiology [facility] ERY CUTTER ERY CUTTER documented in this encounter Plan of Treatment Not on file documented as of this encounter Procedures Procedure Name Priority Date/Time Associated Diagnosis Comments ECG 12-LEAD Routine 06/05/2021 1:57 PM DRAPERY CUTTER XR CHEST PA LATERAL 2 VIEWS IP Routine 06/05/2021 1:51 PM DRAPERY CUTTER XR CHEST 1 VIEW ED Urgent/IP Urgent 06/05/2021 9:56 AM DRAPERY CUTTER ICD DC NEW Routine 06/05/2021 9:11 AM DRAPERY CUTTER AV block, 2nd degree NICM (nonischemic cardiomyopathy) (CMS/HCC) (HCC) ECG 12-LEAD STAT 06/05/2021 7:45 AM DRAPERY CUTTER documented in this encounter Results * ECG 12 lead (06/05/2021 1:57 PM DRAPERY CUTTER) 06/05/2021 1:57 PM DRAPERY CUTTER Narrative [facility] - 06/06/2021 7:47 PM DRAPERY CUTTER Vent Rate: 76 bpm RR Interval: 788 msec MN Interval: 153 msec QRS Duration: 133 msec QT Interval: 414 msec QTC Interval: 444 msec P-R-T Mills: 16 - 82 - 114 degrees SINUS RHYTHM RIGHT BUNDLE BRANCH BLOCK DIFFUSE T-WAVE ABNORMALITIES ABNORMAL ECG Electronically Signed By: Cam Tejeda MD [facility] us Ashvin Recio III, MD ECG ORDERABLES Fin al Result [facility] * X-ray chest 2 views (06/05/2021 1:51 PM DRAPERY CUTTER) Anatomical Region Laterality Modality Body, Chest N/A Computed Radiogr aphy 06/05/2021 1:54 PM DRAPERY CUTTER Impressions 06/05/2021 1:54 PM DRAPERY CUTTER 1. Internal cardiac defibrillator which follows an expected course without evidence of pneumothorax. COMMENT: Please see above for additional findings. Electronically signed by: Philippe Jara M.D. Narrative 06/05/2021 1:54 PM DRAPERY CUTTER Chest Radiograph, two views HISTORY: Status post ICD implant COMPARISON: 06/05/2021 at 0939 hours A chest radiographic examination including 2 views in the frontal and lateral projections was presented. FINDINGS: An internal cardiac defibrillator is present and follows an expected course. ??Hardware fixation is noted in the lumbar spine. The cardiac silhouette within normal size limits. The costophrenic angles are preserved bilaterally. ??There is no evidence of pneumothorax. No confluent infiltrates are appreciated. On the lateral view, the patient was unable to elevate the right arm due to the recent procedure so fine detail is limited. Procedure Note Philippe Jara MD - 06/05/2021 Chest Radiograph, two views HISTORY: Status post ICD implant COMPARISON: 06/05/2021 at 0939 hours A chest radiographic examination including 2 views in the frontal and lateral projections was presented. FINDINGS: An internal cardiac defibrillator is present and follows an expected course. Hardware fixation is noted in the lumbar spine. The cardiac silhouette within normal size limits. The costophrenic angles are preserved bilaterally. There is no evidence of pneumothorax. No confluent infiltrates are appreciated. On the lateral view, the patient was unable to elevate the right arm due to the recent procedure so fine detail is limited. IMPRESSION: 1. Internal cardiac defibrillator which follows an expected course without evidence of pneumothorax. COMMENT: Please see above for additional findings. Electronically signed by: Philippe Jara M.D. Ashvin Recio III, MD IMG XR PROCEDURES F inal Result * X-ray chest 1 view (Portable) (06/05/2021 9:56 AM DRAPERY CUTTER) Anatomical Region Laterality Modality Body, Chest N/A Computed Radiogr aphy 06/05/2021 10:0 9 AM DRAPERY CUTTER Impressions 06/05/2021 10:09 AM DRAPERY CUTTER 1. ??Interval placement of left chest wall cardiac device and leads. 2. ??No pneumothorax or acute cardiopulmonary findings. Electronically signed by: Shine Skelton M.D. Narrative 06/05/2021 10:09 AM DRAPERY CUTTER XR CHEST 1 VIEW: 06/05/2021 9:35 AM CLINICAL INDICATION: s/p ICD implant. COMPARISON: Radiographs of the spine from 05/07/2021, which include the thorax. ??Radiographs of the lumbar spine dated 09/04/2020. FINDINGS: Interval placement of left chest wall cardiac device and leads. Partial visualization of lumbar fusion hardware. ??Possible lucencies adjacent to the L1 pedicle screws. ??Otherwise, visualized hardware is intact. ??Cardiomediastinal silhouette normal in size. ??Trachea midline. ??Mild calcification along the aortic arch. ??Pulmonary vasculature normal. ??No consolidation, pleural effusion or pneumothorax. Procedure Note Shine Skelton MD - 06/05/2021 XR CHEST 1 VIEW: 06/05/2021 9:35 AM CLINICAL INDICATION: s/p ICD implant. COMPARISON: Radiographs of the spine from 05/07/2021, which include the thorax. Radiographs of the lumbar spine dated 09/04/2020. FINDINGS: Interval placement of left chest wall cardiac device and leads. Partial visualization of lumbar fusion hardware. Possible lucencies adjacent to the L1 pedicle screws. Otherwise, visualized hardware is intact. Cardiomediastinal silhouette normal in size. Trachea midline. Mild calcification along the aortic arch. Pulmonary vasculature normal. No consolidation, pleural effusion or pneumothorax. IMPRESSION: 1. Interval placement of left chest wall cardiac device and leads. 2. No pneumothorax or acute cardiopulmonary findings. Electronically signed by: Shine Skelton M.D. Ashvin Recio III, MD IMG XR PROCEDURES F inal Result * ICD DC NEW (06/05/2021 9:11 AM DRAPERY CUTTER) Anatomical Region Laterality Modality X-Ray Angiograph y Ashvin Recio III, MD CV ELECTROPHYSIOLOG Y PROCS Final Result * ECG 12 lead (06/05/2021 7:45 AM DRAPERY CUTTER) 06/05/2021 7:45 AM DRAPERY CUTTER Narrative [facility] - 06/05/2021 6:20 PM DRAPERY CUTTER Vent Rate: 69 bpm RR Interval: 858 msec MN Interval: 161 msec QRS Duration: 134 msec QT Interval: 433 msec QTC Interval: 453 msec P-R-T Mills: 8 - 82 - 209 degrees SINUS RHYTHM RIGHT BUNDLE BRANCH BLOCK MODERATE T-WAVE ABNORMALITY, nonspecific ABNORMAL ECG Electronically Signed By: Tg Houston MD, [facility] us Ashvin Recio III, MD ECG ORDERABLES Fin al Result [facility] documented in this encounter Visit Diagnoses Diagnosis AV block, 2nd degree Other second degree atrioventricular block NICM (nonischemic cardiomyopathy) (CMS/HCC) (HCC) Apical variant hypertrophic cardiomyopathy (HCC) documented in this encounter Admitting Diagnoses Diagnosis AV block, 2nd degree Other second degree atrioventricular block Apical variant hypertrophic cardiomyopathy (HCC) documented in this encounter Administered Medications Inactive Administered Medications - up to 3 most recent administrations Medication Order MAR Action Action Date Dose Rate Site acetaminophen (TYLENOL) 325 mg tablet - ADS Override Pull Starting on Thu06/05/21 at 0936, For 1 dose, Created by cabinet override acetaminophen (TYLENOL) tablet 650 mg 650 mg, oral, Every 4 hours PRN, 1st line for pain, Starting on Thu06/05/21 at 0930, Indications: PainIndications:Pain Given 06/05/2021 2:10 PM DRAPERY CUTTER 650 mg Given 06/05/2021 9:48 AM DRAPERY CUTTER sodium chloride 0.9% flush 0.5-20 mL 0.5-20 mL, intra-catheter, Every 8 hours scheduled, First dose on Thu06/05/21 at 0745, Pre-Procedure (CV), Flush volume based on line type and size. sodium chloride 0.9% flush 0.5-20 mL 0.5-20 mL, intra-catheter, As needed, line care, Starting on Thu06/05/21 at 0704, Pre-Procedure (CV), Flush volume based on line type and size. Flush before and after each use. sodium chloride 0.9% infusion 50 mL/hr, intravenous, Continuous, Starting on Thu06/05/21 at 0745 New Bag 06/05/2021 7:51 AM DRAPERY CUTTER 250 mL/hr documented in this encounter Discontinued Medications Medication Sig Discontinue Reason Start Date End Da te DULoxetine DR (CYMBALTA) 60 mg capsule Take 60 mg by mouth daily Duplicate order 10/31/2020 06/05/2021 documented as of this encounter Active and Recently Administered Medications Times are shown in DRAPERY CUTTER. Scheduled Medication Order 06/03/2021 06/04/2021 06/05/2021 ceFAZolin (ANCEF) 1 gram/10 mL in sterile water (premix) 1,000 mg 1,000 mg, intravenous, at 200 mL/hr, Administer over 3 Minutes, Once, On Thu06/05/21 at 1300, For 1 dose, Start 8 hours after pre-op dose., Indications: Prophylaxis, Surgical 1300 (Due) ceFAZolin (ANCEF) 2,000 mg/20 mL in sterile water (premix) 2,000 mg (COMPLETED) 2,000 mg, intravenous, at 400 mL/hr, Administer over 3 Minutes, Once, On Thu06/05/21 at 0745, For 1 dose, Pre-Procedure (CV), Administer within 60 minutes of incision., Indications: Prophylaxis, Surgical 0805 (Given - Provid er: Lotus Castillo CRNA) sodium chloride 0.9% flush 0.5-20 mL 0.5-20 mL, intra-catheter, Every 8 hours scheduled, First dose on Thu06/05/21 at 0745, Pre-Procedure (CV), Flush volume based on line type and size. 0745 (Due)1400 (Due) Continuous Medication Order 06/03/2021 06/04/2021 06/05/2021 sodium chloride 0.9% infusion 50 mL/hr, intravenous, Continuous, Starting on Thu06/05/21 at 0745 0751 (New Bag - Prov ider: Lotus Castillo CRNA)0924 (Anesthesia Volume Adjustment - Provider: Lotus Castillo CRNA) PRN Medication Order 06/03/2021 06/04/2021 06/05/2021 acetaminophen (TYLENOL) tablet 650 mg 650 mg, oral, Every 4 hours PRN, 1st line for pain, Starting on Thu06/05/21 at 0930, Indications: Pain 0948 (Given - Provid er: Francisco Chavis RN)1410 (Given - Provider: Francisco Chavis RN) ceFAZolin 2,000 mg in 0.9 % sodium chloride solution 500 mL (pocket flush) (CANCELED) As needed, Starting on Thu06/05/21 at 0855, Intra-Procedure (CV) 0855 (Given - Provid er: Ashvin Recio III, MD) heparin in 0.9% sodium chloride 1,000 units/500 mL (2 unit/mL) infusion (premix) (CANCELED) As needed, Starting on Thu06/05/21 at 0908, Intra-Procedure (CV) 0908 (Given - Provid er: Ashvin Recio III, MD - Comment: back table flush) ioversoL (OPTIRAY 320) injection (CANCELED) As needed, Starting on Thu06/05/21 at 0807, Intra-Procedure (CV) 0807 (Given - Provid er: Ashvin Recio III, MD) lidocaine (XYLOCAINE) 20 mg/mL (2 %) injection (CANCELED) As needed, Starting on Thu06/05/21 at 0826, Intra-Procedure (CV), Indications: Administration of Local Anesthesia 0826 (Given - Provid er: Ashvin Recio III, MD) ondansetron (ZOFRAN) injection 4 mg 4 mg, intravenous, Administer over 2 Minutes, Every 6 hours PRN, nausea, vomiting, Starting on Thu06/05/21 at 0930, Indications: Nausea and Vomiting sodium chloride 0.9% flush 0.5-20 mL 0.5-20 mL, intra-catheter, As needed, line care, Starting on Thu06/05/21 at 0704, Pre-Procedure (CV), Flush volume based on line type and size. Flush before and after each use. documented in this encounter Orders Medications Ordered That Tyrone ht Not Have Been Administered Count Last Ordered Date First Ordered Date acetaminophen (TYLENOL) 325 mg tablet - ADS Override Pull 1 06/05/2021 ceFAZolin (ANCEF) 1 gram/10 mL in sterile water (premix) 1,000 mg 1 06/05/2021 ceFAZolin (ANCEF) 2,000 mg/2 0 mL in sterile water (premix) 2,000 mg 1 06/05/2021 ceFAZolin 2,000 mg in 0.9 % sodium chloride solution 500 mL (pocket flush) 1 06/05/2021 heparin in 0.9% sodium chlor josephine 1,000 units/500 mL (2 unit/mL) infusion (premix) 1 06/05/2021 ioversoL (OPTIRAY 320) injection 1 06/05/20 lidocaine (XYLOCAINE) 20 mg/ mL (2 %) injection 1 06/05/2021 ondansetron (ZOFRAN) injection 4 mg 1 06/05 sodium chloride 0.9% flush 0.5-20 mL 2 05/27 sodium chloride 0.9% infusion 1 06/05/2021 Nursing Count Last Ordered Date First Orde red Date TELEMETRY MONITORING 1 06/05/2021 Discharge Count Last Ordered Date First Orde red Date DISCHARGE PATIENT 1 06/05/2021 documented in this encounter Care Teams Regional Owner Operator Truck Driver Relationship Specialty Start Date End Date Enmanuel Gan MD [address] [facility] [address] [place] [address] PCP - General Internal Medicine 04/26/20 Tg [place] MD [address] [facility] [address] [place] [address] Consulting Physician Cardiology 07/18/20 Guerrero Hunter DPT [address] [facility] [address] [id number] Physical Therapist Physical Therapy 11/08/20 Guerrero Weiner PTA [address] [place] [address] First Breaker Feeder Physical Therapy 12/12/20 documented as of this encounter
--- OUTSIDE RECORDS SUMMARY | 2024-07-12 08:49 | XMS_ITS | Encounter Summary ---
Author Organization [facility] Address [address] [place] [address] Phone Care Team Providers Care Reo Asset Manager Name Role Phone Enmanuel Gan MD Primary Care Provider [phone] Tg [place] MD Unavailable [phone] Guerrero Hunter DPT Unavailable [phone] Guerrero Weiner CHEMISTRY FACULTY MEMBER Unavailable [phone] Reason for Referral * Diagnostic Imaging (Routine) - Closed Specialty Diagnoses / Procedures Referred By Contac t Referred To Contact Diagnoses Fusion of spine of lumbar region Procedures XR Scoliosis 6 or More Views Jeremy Michelle MD [address] [place] [place] [address] Phone: tel: fax: [facility] [address] [place] [address] Referral ID Status Reason Start Date Expiration Date Visits Re quested Visits Authorized [id number] Closed 07/18/2021 08/17/2022 1 1 EATIONAL AIDE Encounter Details Date Type Department Care Team (Late st Contact Info) Description 07/18/2021 Orders Only [facility] Orthopaedic Surgery [facility] Medicine 6th [place] [address] [place] [address] Jeremy Michelle MD [address] [facility] 6A/6B[address]12A [place] [address] Fusion of spine of lumbar region (Primary [...] on file Legal Sex Female 9:09 PM RECREATIONAL AIDE Gender Identity Not on file Sexual Orientation Lesbian 05/24/2019 9: 06 AM CDT documented as of this encounter Plan of Treatment Not on file documented as of this encounter Results * XR Scoliosis 6 or More Views (07/23/2021 8:20 AM RECREATIONAL AIDE) Anatomical Region Laterality Modality Spine N/A Computed Radiogr aphy 07/23/2021 8:27 AM RECREATIONAL AIDE Impressions 07/23/2021 8:27 AM RECREATIONAL AIDE Unchanged posterior decompression and instrumented fusion L1 L4 with anterior fusion L2-S1. Unchanged mild lucency surrounding the L1 pedicular screws. Electronically signed by: Samson Aargon M.D. Narrative 07/23/2021 8:27 AM RECREATIONAL AIDE EXAMINATION: Scoliosis 6 or more views HISTORY: Spondylosis FINDINGS: AP and lateral standing images of the entire spine as well as AP, lateral, flexion-extension, and oblique views of the lumbar spine were performed with comparison made to 05/07/2021. There is a left chest wall pacemaker. There are bilateral total hip arthroplasties. There is no pelvic tilt. There is minimal dextrocurvature near the thoracolumbar junction. There is no coronal imbalance. There is mild anterior sagittal imbalance. There is posterior instrumented fusion and decompression L1-L4 with combined anterior fusion L2-S1. There is unchanged mild lucency surrounding the L1 pedicular screws. There is degenerative disc disease above the fused levels. There is no motion of the fused segments with flexion and extension. Procedure Note Samson Aragon MD PhD - 07/23/2021 EXAMINATION: Scoliosis 6 or more views HISTORY: Spondylosis FINDINGS: AP and lateral standing images of the entire spine as well as AP, lateral, flexion-extension, and oblique views of the lumbar spine were performed with comparison made to 05/07/2021. There is a left chest wall pacemaker. There are bilateral total hip arthroplasties. There is no pelvic tilt. There is minimal dextrocurvature near the thoracolumbar junction. There is no coronal imbalance. There is mild anterior sagittal imbalance. There is posterior instrumented fusion and decompression L1-L4 with combined anterior fusion L2-S1. There is unchanged mild lucency surrounding the L1 pedicular screws. There is degenerative disc disease above the fused levels. There is no motion of the fused segments with flexion and extension. IMPRESSION: Unchanged posterior decompression and instrumented fusion L1 L4 with anterior fusion L2-S1. Unchanged mild lucency surrounding the L1 pedicular screws. Electronically signed by: Samson Aragon M.D. us Jeremy Michelle MD IMG XR PROCEDURES Fi nal Result documented in this encounter Visit Diagnoses Diagnosis Fusion of spine of lumbar region- Primary Fusion of spine of lumbar region documented in this encounter Care Teams Reo Asset Manager Relationship Specialty Start Date End Date Enmanuel Gan MD [address] [place] [address] PCP - General Internal Medicine 04/26/20 Tg [place] MD [address] [place] [address] Consulting Physician Cardiology 07/18/20 Guerrero Hunter DPT [address] [facility] [address] [facility] [place] [address] Physical Therapist Physical Therapy 11/08/20 Guerrero Weiner PTA [address] [facility] [address] [place] [address] Fleet Driver Physical Therapy 12/12/20 documented as of this encounter
--- OUTSIDE RECORDS SUMMARY | 2024-07-12 08:49 | XMS_ITS | Encounter Summary ---
Author Organization [facility] Address [address] [place] [address] Phone Care Team Providers Care Mold Worker Name Role Phone Enmanuel Gan MD Primary Care Provider Tg [place] MD Unavailable [phone] Guererro Hunter DPT Unavailable [phone] Guerrero Weiner [employer] BPM ARCHITECT Unavailable [phone] Reason for Referral * Diagnostic Imaging (Routine) - Closed Specialty Diagnoses / Procedures Referred By Contac t Referred To Contact Diagnoses Fusion of spine of thoracolumbar region Procedures XR Scoliosis 6 or More Views Jeremy Michelle MD [address] [facility] [address] [place] [address] Phone: tel: fax: [address] [address] Referral ID Status Reason Start Date Expiration Date Visits Re quested Visits Authorized [id number] Closed 05/06/2021 06/05/2022 1 1 Encounter Details Date Type Department Care Team (Late st Contact Info) Description 05/06/2021 Orders Only [facility] Orthopaedic Surgery [address] [facility] 6th [place] [address] [place] [address] Jeremy Michelle MD [address] [facility] /6B[address] [place] [address] Fusion of spine of thoracolumbar region (Primary [...] often do you attend chur ch or mormon services? Never 07/30/2020 Do you [...] file Legal Sex Female 9:09 PM TECHNICAL IMPLEMENTATION LEAD Gender Identity Not on file Sexual Orientation Lesbian 05/24/2019 9: 06 AM CDT documented as of this encounter Plan of Treatment Not on file documented as of this encounter Results * XR Scoliosis 6 or More Views (05/07/2021 8:25 AM CDT) Anatomical Region Laterality Modality Spine N/A Computed Radiogr aphy 05/07/2021 8:33 AM CDT Impressions 05/07/2021 8:33 AM CDT 1. Posterior decompression and posterior instrumented fusion L4-L1 with anterior interbody fusion L2-S1, unchanged. Electronically signed by: Hal Hubbard M.D. Narrative 05/07/2021 8:33 AM CDT EXAMINATION: XR SCOLIOSIS ??6 OR MORE VIEWS HISTORY: Lumbar fusion FINDINGS: Standing frontal and lateral radiographs of the entire spine were digitally acquired using the EOS system. In addition, frontal, lateral, and bilateral oblique radiographs of the lumbar spine were obtained with comparison to 01/29/2021. There is neutral coronal imbalance and unchanged anterior sagittal imbalance. There is no pelvic obliquity. Postsurgical changes of posterior decompression and posterior instrumented fusion L1-L4. There is anterior interbody fusion L2-S1. There is unchanged mild lucency surrounding the L1 pedicle screws. Unchanged mild lumbar degenerative disc disease at the unfused segments. Bilateral sacroiliac osteoarthritis is present. Bilateral hip arthroplasties are present. There are surgical clips in the right upper quadrant. Procedure Note Hal Hubbard MD - 05/07/2021 EXAMINATION: XR SCOLIOSIS 6 OR MORE VIEWS HISTORY: Lumbar fusion FINDINGS: Standing frontal and lateral radiographs of the entire spine were digitally acquired using the EOS system. In addition, frontal, lateral, and bilateral oblique radiographs of the lumbar spine were obtained with comparison to 01/29/2021. There is neutral coronal imbalance and unchanged anterior sagittal imbalance. There is no pelvic obliquity. Postsurgical changes of posterior decompression and posterior instrumented fusion L1-L4. There is anterior interbody fusion L2-S1. There is unchanged mild lucency surrounding the L1 pedicle screws. Unchanged mild lumbar degenerative disc disease at the unfused segments. Bilateral sacroiliac osteoarthritis is present. Bilateral hip arthroplasties are present. There are surgical clips in the right upper quadrant. IMPRESSION: 1. Posterior decompression and posterior instrumented fusion L4-L1 with anterior interbody fusion L2-S1, unchanged. Electronically signed by: Hal Hubbard M.D. Jeremy Michelle MD IMG XR PROCEDURES Fi nal Result documented in this encounter Visit Diagnoses Diagnosis Fusion of spine of thoracolumbar region- Primary Fusion of spine of thoracolumbar region documented in this encounter Care Teams Mold Worker Relationship Specialty Start Date End Date Enmanuel Gan MD [address] [place] [address] PCP - General Internal Medicine 04/26/20 Tg [place] MD [address] [place] [address] Consulting Physician Cardiology 07/18/20 Guerrero Hunter DPT [address] [facility] [address] [place] [address] Physical Therapist Physical Therapy 11/08/20 Guerrero Weiner, IBM BPM ARCHITECT [address] [facility] [address] [place] [address] Refining Engineer Physical Therapy 12/12/20 documented as of this encounter
--- OUTSIDE RECORDS SUMMARY | 2024-07-12 08:49 | XMS_ITS | Encounter Summary ---
Author Organization [facility] Address [address] [place] [address] Phone Care Team Providers Care Stitcher Hand Name Role Phone Enmanuel Gan MD Primary Care Provider [phone] Tg [place] MD Unavailable [phone] Guerrero Hunter DPT Unavailable [phone] Guerrero Weiner MUSEUM OR ZOO DIRECTOR Unavailable [phone] Reason for Visit * Audiology (Routine) - Closed Specialty Diagnoses / Procedures Referred By Contac t Referred To Contact Audiology Diagnoses Sensorineural hearing loss, bilateral Procedures Evaluation, cochlear implant programming and auditory rehabilitation per [facility] adult cochlear implant protocol Darshana Toth MD [address] [place] [address] Phone: tel: fax: [facility] [address] [facility] [address]th [place] [address] [place] [address] Phone: tel: fax: Referral ID Status Reason Start Date Expiration Date Visits Re quested Visits Authorized [id number] Closed 06/10/2021 07/10/2022 1000 1000 Encounter Details Date Type Department Care Team (Latest Contact Info) Description 07/15/2021 10:30 AM SAFETY GROOVING MACHINE OPERATOR Procedure visit [facility] [address] [facility] [address] [place] [address] [place] [address] Jasmin Winter, PhD [address] [place] [address] Sensorineural hearing loss, bilateral Social History Tobacco Use Types Packs/Day [...] on file Legal Sex Female 9:09 PM SAFETY GROOVING MACHINE OPERATOR Gender Identity Not on file Sexual Orientation Lesbian 05/24/2019 9: 06 AM CDT documented as of this encounter Procedure Notes * Jasmin Winter, PhD - 07/15/2021 10:30 AM CST Procedures Hearing Aid (Active) Ear Mold (Active) Cochlear Implant (Active) L/R/Bilateral left Agriculture Professor Cochlear [employer] Internal [id number] External Kanso 2/dunlap/3(I) Provider Navneet Date of CI surgery 06/19/20 Date of IS 07/09/20 MAPS in Processor: SCAN+all IP, 1200 ALLEGRA V6, S12 P1: Map 12 P2: Map??11 old preferred ?? COUCH(RE): [employer] YURI, outside provider ? SERVICES PROVIDED:??12 Month Evaluation of auditory function, post-CI (Time 10:40-11:15AM) and Subsequent??Programming ?? PROCEDURES: The patient attended the session alone. She reports ongoing back issues. - Has been hearing well- within the last month noticing she is asking for clarification more often.Feel like there is more noise (atmosphere-not tinnitus) - Did have a defibulator surgery beginning of May - Has not changed the filter on her processor lately. Changed filter during appointment AFTER testing - Has not had her hearing aid ear/COUCH check for over a year ?? Evaluation: Testing was completed to assess the patient's current detection of sound and speech understanding and to compare to previous results. RE was plugged during CI only testing. ?? Patient was using: Kanso 2 P1, map 11, volume 8, sensitivity 12 ?? Sound field Thresholds ?? 250 556 212 1383 1500 2000 3000 4000 6000 Hz CI LE 20 24 22 26 18 18 24 18 14 dB HL ?? *() indicates results from the previous 6 month evaluation ?? CNC Words @ 60 dB SPL: CI:LE List: 4 Word Total: 84% (68%) Phoneme Total: 91% (75%) ?? [employer]Bio Sentences @ 60 dB SPL: CI:LE List: 14 Total: 80% (77%) ?[employer] Sentences @ 60 dB SPL+10 SNR MB: CI:LE List: 15 Total: 59% (67%, 17% pre-CI) CI+COUCH List: 17 Total: 73% (79%, 67% pre-CI) ?? Aided soundfield thresholds were good and indicate good audibility for speech. Scores on words and sentences in quiet were better compared to preoperative testing. Results of testing were discussed with the patient. ?? Programming: Programming was??completed to??optimize current map parameters and to ensure optimal settings.?See custom sound??software for details this date. ?? A head check was completed and magnet was tight, but no redness with slight indentation. ?? Impedances were measured and were??all okay??and stable. ?? Patient's preferred map was opened: map 11. C levels were swept and balanced; rated medium. Moderate changes made to E14-12 (reduced) T levels were swept at 25% and balanced at 50%; rated very-soft. Some changes were made. When live, T&Cs+3 as patient had been increasing the volume to 8. Following change volume was still comfortable and did not want additional volume. Together with COUCH, volume was comfortable and balanced- medium loud. This was saved and Programs were loaded as indicated above. ?? Backup sound processor ([employer] 2) was programmed identically. ?? Patient was having trouble connecting K2 to virgilio- had patient restart phone and processor connected to virgilio. Counseled patient to only use backup k2 for emergencies; not ideal to switch back and forth due to difficulty with pairing with phone. Discussed pricing and technology differences of ReSound hearing aids The note as documented above reflects my personal service. ? IMPRESSIONS/PLAN: Return for 12 month evaluation or sooner if needed Recommend hearing test for right ear with adult audiology Consider purchasing a CI-compatible hearing aid for the right ear TY GROOVING MACHINE OPERATOR documented in this encounter Plan of Treatment Not on file documented as of this encounter Visit Diagnoses Diagnosis Sensorineural hearing loss, bilateral documented in this encounter Orders Audiology Count Last Ordered Date First Orde red Date EVALUATION, COCHLEAR IMPLANT PROGRAMMING AND AUDITORY REHABILITATION 1 07/12/2021 documented in this encounter Care Teams Stitcher Hand Relationship Specialty Start Date End Date Enmanuel Gan MD [address] [place] [address] PCP - General Internal Medicine 04/26/20 Tg [place] MD [address] [facility] [address] [place] [address] Consulting Physician Cardiology 07/18/20 Guerrero Hunter DPT [address] [facility] [address] [facility] [place], [place] [id number] Physical Therapist Physical Therapy 11/08/20 Guerrero Weiner, [facility] [address] [place], [place] [id number] Textile Worker Physical Therapy 12/12/20 documented as of this encounter
--- OUTSIDE RECORDS SUMMARY | 2024-07-12 08:49 | XMS_ITS | Encounter Summary ---
Author Organization [facility] Address [address] [place] [address] Phone Care Team Providers Care Service Cashier Name Role Phone Enmanuel Gan MD Primary Care Provider [phone] Tg Houston MD Unavailable [phone] Guerrero Hunter DPT Unavailable [phone] Guerrero Weiner LOOM CHANGEOVER OPERATOR Unavailable [phone] Reason for Referral * Diagnostic Imaging (Routine) - Closed Specialty Diagnoses / Procedures Referred By Contac t Referred To Contact Radiology Diagnoses Fusion of spine of lumbar region Procedures IR Injection SI Joint Left with Guidance Jeremy Michelle MD [address] [facility] [address] [place] [address] Phone: tel: fax: [address] [address] Referral ID Status Reason Start Date Expiration Date Visits Re quested Visits Authorized [id number] Closed 07/23/2021 08/22/2022 1 1 ICATION DEVELOPMENT INTERN * MRI/CAT/PET Scan (Routine) - Closed Specialty Diagnoses / Procedures Referred By Contac t Referred To Contact Radiology Diagnoses Fusion of spine of lumbar region Procedures CT Lumbar Spine WO Contrast Jeremy Michelle MD [address] [facility] [place] [place] [address] Phone: tel: fax: [facility] [address] [facility] [place] [address] Referral ID Status Reason Start Date Expiration Date Visits Re quested Visits Authorized [id number] Closed 07/23/2021 08/22/2022 1 1 ICATION DEVELOPMENT INTERN Encounter Details Date Type Department Care Team (Late st Contact Info) Description 07/23/2021 8:30 AM APPLICATION DEVELOPMENT INTERN Office Visit [facility] Orthopaedic Surgery [address] [facility] 6th [place] [address] [place] [address] Jeremy Michelle MD [address] [facility] [place] [place] [address] Fusion of spine of lumbar region (Primary [...] attend chur ch or druze services? Never 07/30/2020 Do you belong to [...] on file Legal Sex Female 9:09 PM APPLICATION DEVELOPMENT INTERN Gender Identity Not on file Sexual Orientation Lesbian 05/24/2019 9: 06 AM CDT documented as of this encounter Patient Instructions * Patient Instructions* Cyndie Byers RN - 07/23/2021 8:30 AM APPLICATION DEVELOPMENT INTERN Thank you for your visit today we are pleased to be here to assist with your spine needs. Will see about getting your hip injection with [facility] next week Sincerely, Dr. Jeremy Michelle & Cyndie Byers RN Please contact Dr. Miguel Angel Agee's Nurse if you have any questions. Mail disc to: Orthopedics Attn: Cyndie/ Dr. Michelle [address] [address] ICATION DEVELOPMENT INTERN ICATION DEVELOPMENT INTERN documented in this encounter Progress Notes * Jeremy Michelle MD - 07/23/2021 8:30 AM CST Images from the original note were not included. Established Patient Visit Interim History Macie Briseno returns to our office today for follow-up 1 year out from revision surgery. She has had some left SI joint pain and left greater troch pain that has come on more recently. Otherwise she has done well and has not had much back pain. She occasionally has some shooting pain in the left leg but then it subsides. Otherwise she says she is doing much better than she was previously. Physical Examination On my exam today she remains intact upper lower extremities L2 to through S1 sensory intact to light touch and 5/5 throughout Positive Shira test on the left and right for SI joint pain - much more sensitive on the left. Greater troch bursitis on the left on exam Otherwise intact throughout bilaterally C5 through T1-L2 through S1 motor and sensory function bilaterally No abnormal reflex Able to ambulate without difficulty Review of Plain Radiographs/Studies Imaging reviewed by me. She was extended up to L1 and currently has an L1 to for fusion. The L1 screws have slight lucency around the screws which does not appear changed from previous. Does appear that she has likely gone on to fuse here. Although CT would be the best evaluation of this. Unchangedalignment and position of hardware. L1 screws in question were bicortical due to her concerns for her bone and appeared to have stayed completely in place. Impression/Diagnosis/Treatment Plan Doing well now over 1 year out from her revision surgery. She has recently developed some greater trochanter pain on the left as well as some left SI joint pain. She does have some gas in the joint on her prior CT that we have discussed previously. We would like to avoid fusing more if we can and will send her to get an SI joint injection which she would appreciate. She is also going to get a greater troch injection. I gave her the option of a CT scan given the lucency around her proximal most screws. My guess would be that she went on to fuse here but she said she would like to pursue the CTif possible. We will do this. - left greater troch injection - left SI joint injection - lumbar spine CT without to evaluate for fusion. If she looks like she is fused or fusing we can see her back in 1 year. If it looks like it is not fusing then we will see her sooner to talk about it. Jeremy Michelle MD PhD [facility] Umpire of Orthopaedic Secured Entrance MonitorGoal Umpire of Neurological Surgery [facility] Miguel Angel [facility] in [facility], [place] Electrical Controls Engineer done by [employer]; therefore, variances and inaccuracies may occur. I reviewed the patient problem list pertinent to the visit today, but the entire patient problem list was not reviewed today. ICATION DEVELOPMENT INTERN documented in this encounter Plan of Treatment Not on file documented as of this encounter Results * IR Injection SI Joint Left with Guidance (09/06/2021 10:57 AM APPLICATION DEVELOPMENT INTERN) Narrative [facility] - 09/06/2021 10:58 AM APPLICATION DEVELOPMENT INTERN The images from this study are not interpreted by Radiology. ??Please refer to the physician's procedure / OR operative note. us Jeremy Michelle MD IMG IR PROCEDURES Fi nal Result [facility] * CT Lumbar Spine WO Contrast (08/06/2021 12:37 PM APPLICATION DEVELOPMENT INTERN) Anatomical Region Laterality Modality Spine N/A Computed Tomogra phy 08/06/2021 3:31 PM APPLICATION DEVELOPMENT INTERN Impressions 08/06/2021 4:35 PM APPLICATION DEVELOPMENT INTERN 1.Postoperative changes of revision posterior instrumented fusion [...] Obregon M.D, PHD Narrative 08/06/2021 4:35 PM APPLICATION DEVELOPMENT INTERN EXAMINATION: CT LUMBAR SPINE WO CONTRAST HISTORY: [...] Primary Fusion of spine of lumbar region Sacroiliac joint dysfunction of left side- Primary documented in this encounter Care Teams Service Cashier Relationship Specialty Start Date End Date Enmanuel Gan MD [address] [facility] [address] [place] [address] PCP - General Internal Medicine 04/26/20 Tg Hosuton MD [address] [facility] [address] [place] [address] Consulting Physician Cardiology 07/18/20 Guerrero Hunter DPT [address] [facility] [address] [place] [address] Physical Therapist Physical Therapy 11/08/20 Guerrero Weiner, [facility] [address] [facility] [address] [place] [address] Siebel Crm Developer Physical Therapy 12/12/20 documented as of this encounter
--- OUTSIDE RECORDS SUMMARY | 2024-07-12 08:49 | XMS_ITS | Encounter Summary ---
Author Organization [facility] Address [address] [place] [address] Care Team Providers Care Regulatory Internship Name Role Phone Enmanuel Gan MD Primary Care Provider [phone] Tg Houston MD Unavailable [phone] Guerrero Hunter DPT Unavailable [phone] Guerrero Weiner ADJUSTER ELECTRICAL CONTACTS Unavailable [phone] Encounter Details Date Type Department Care Team (Latest Contact Info) Description 06/05/2021 7:30 AM ANIMAL CRUELTY INVESTIGATION SUPERVISOR - 06/05/2021 9:25 AM ANIMAL CRUELTY INVESTIGATION SUPERVISOR Surgery [facility] Electrophysiology Lab [address] [place] [phone] Ashvin Recio III, MD [address] [address] INSERT/REPLACE IMPLANTABLE CARDIOVERTER-DEFIBRI LLATOR (ICD) DUAL CHAMBER SYSTEM [address] Surgery Details Date/Time Status Location OR Service Patient Class Case Class Case Type Trauma Case? 06/05/2021 7:30 AM Posted [facility] EP LAB EP D Cardiovascular Outpatient Elective Panel 1 Procedure LRB Anes Op Region Wound Class Comments INSERT/REPLACE IMPLANTABLE CARDIOVERTER-DEFIBRILLATOR (ICD) DUAL CHAMBER SYSTEM [address] N/A Choice [employer] Scientific Surgeon Surgeon Role Service Panel Ashvin Recio III, MD Primary Cardiovascu lar 1 Case Notes ORDERS [facility] AUTH# [id number]/[place] SCIICD documented in this encounter Social History Tobacco [...] often do you attend chur ch or buddhism services? Never 07/30/2020 Do you belong to [...] on file Legal Sex Female 9:09 PM ANIMAL CRUELTY INVESTIGATION SUPERVISOR Gender Identity Not on file Sexual Orientation Lesbian 05/24/2019 9: 06 AM CDT documented as of this encounter Last Filed Vital Signs Vital Sign Reading Time Taken Comments Blood Pressure 121/59 06/05/2021 9:25 AM ANIMAL CRUELTY INVESTIGATION SUPERVISOR Pulse 72 06/05/2021 9:25 AM ANIMAL CRUELTY INVESTIGATION SUPERVISOR Temperature 36.1 ??C (97 ??F) 06/05/2021 9:25 AM ANIMAL CRUELTY INVESTIGATION SUPERVISOR Respiratory Rate 13 06/05/2021 9:25 AM ANIMAL CRUELTY INVESTIGATION SUPERVISOR Oxygen Saturation 99% 06/05/2021 9:25 AM ANIMAL CRUELTY INVESTIGATION SUPERVISOR Inhaled Oxygen Concentration - - Weight 74.8 kg (164 lb 14.5 oz) 06/05/2021 7:23 AM ANIMAL CRUELTY INVESTIGATION SUPERVISOR Height 166.4 cm (5' 5.5 ) 06/05/2021 7:23 AM ANIMAL CRUELTY INVESTIGATION SUPERVISOR Body Mass Index 27.02 06/05/2021 7:23 AM ANIMAL CRUELTY INVESTIGATION SUPERVISOR documented in this encounter Discharge Instructions * Discharge Instructions* Francisco Chavis, RN - 06/05/2021 2:57 PM ANIMAL CRUELTY INVESTIGATION SUPERVISOR Images from the original note were not included. Cardiac Laboratory [facility] [place], [place] [address] [facility] Discharge Instructions---Implant MEDICATIONS [] Home Medications [...] home diet [] Special diet Instructed by Cottage Supervisor ACTIVITY You have been given medications which [...] Patient/Family Signature: Staff Signature/Title: Date and Time: [facility] Arrhythm[facility] Discharge Instructions [...] receive a temporary card from the device [employer]. Carry this in your wallet until yourpermanent card arrives, usually in 6-8 weeks. ??? A monitor will be sent home with you, please read the instructions and supervisor uranium processing the monitor. Additional Instructions ??? Extra Strength Tylenol may be taken every 6 hours as needed for pain. ??? You should avoid strong magnetic currents (large electrical generators, arc welding). You can operate any home electrical appliances including microwave ovens. ??? Notify the physician office at [phone], immediately if you develop abrupt dizziness or shortness of breath. If you feel there is an urgent matter, call 201 or go to the emergency room. ??? Call the office at [phone] with any questions or concerns. Call to schedule a follow-up appointment / wound check. This should be done in the first 7-10 days following your procedure. Ashvin M. Steyers III, M.D. Cardiac Electrophysiology [facility] 04/16/2021 AL CRUELTY INVESTIGATION SUPERVISOR documented in this encounter Medications at Time [...] III, MD - 06/05/2021 7:06 AM CST [facility] Arrhythmia Center: Focused H&P Patient ID [...] of hypertrophic cardiomyopathy. She wore an ambulatory site monitor demonstrating nonsustained ventricular tachycardia. She presents today for consideration of ICD implantation for management of her conduction system disease and sudden risk. Past Medical History Patient Active Problem List Diagnosis Date Noted ??? Fusion of spine of thoracolumbar region 05/06/2021 ??? AV block, 2nd degree 04/15/2021 ??? Apical variant hypertrophic cardiomyopathy (CMS/HCC) ([facility]) 04/15/2021 ??? Abnormal echocardiogram 04/08/2021 ??? Post-operative pain 09/04/2020 ??? Paroxysmal atrial fibrillation (CMS/HCC) ([facility]) 07/16/2020 ??? Late effects of spine fusion 07/16/2020 ??? Prophylactic antibiotic 07/13/2020 ??? Acute low back pain 07/11/2020 Overview Note: Added automatically from request for surgery [id number] ??? History of spinal fusion for scoliosis 07/09/2020 ??? Abnormal ECG 05/24/2019 ??? 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 Facet arthritis of cervical region 04/30/2018 ??? Facet arthritis of lumbar region 04/30/2018 ??? Facet arthropathy, thoracic 04/30/2018 ??? Inflammatory spondylopathy of thoracic region ([facility]) ([facility]) 04/30/2018 ??? Sensorineural hearing loss, asymmetrical 02/19/2018 ??? Foreign body in left ear 11/09/2017 ??? Microvascular angina ([facility]) ([facility]) 06/30/2017 ??? Dyslipidemia 06/30/2017 ??? Essential hypertension [...] ??? Major depressive disorder, single episode, moderate ([facility]) 05/13/2012 ??? Tinnitus 04/26/2012 ??? Sudden idiopathic [...] EP lab for dual chamber ICD implantation. AL CRUELTY INVESTIGATION SUPERVISOR documented in this encounter Miscellaneous Notes * Op Note - Ashvin Recio III, MD - 06/05/2021 7:48 AM CST Images from the original note were not included. [facility] Arrhythmia Center Operative Report: Dual Chamber [...] recorded. Images were taken in WHITT and POLISH views to ensure appropriatelead placement. The lead [...] programming: - RA Lead: Model: Ingevity-52cm (serial #[id number]): Sensing 8.7 mV, Pacing threshold 0.5 V at 0.4ms,Imp 689 Ohm - RV Lead: Model: [place]-59cm (serial #[id number]): Sensing 25 mV, Pacing threshold 0.4 V at 0.4 ms, Imp 474 Ohm - Device: Teak Dynagen EL defibrillator (#[id number]), programmed DDD 60-120 ppm - Zones: VT [...] post-discharge Ashvin Recio III, M.D. Cardiac Electrophysiology [facility] AL CRUELTY INVESTIGATION SUPERVISOR AL CRUELTY INVESTIGATION SUPERVISOR documented in this encounter Plan of Treatment Not on file documented as of this encounter Procedures Procedure Name Priority Date/Time Associated Diagnosis Comments ECG 12-LEAD Routine 06/05/2021 1:57 PM ANIMAL CRUELTY INVESTIGATION SUPERVISOR XR CHEST PA LATERAL 2 VIEWS IP Routine 06/05/2021 1:51 PM ANIMAL CRUELTY INVESTIGATION SUPERVISOR XR CHEST 1 VIEW ED Urgent/IP Urgent 06/05/2021 9:56 AM ANIMAL CRUELTY INVESTIGATION SUPERVISOR ICD DC NEW Routine 06/05/2021 9:11 AM ANIMAL CRUELTY INVESTIGATION SUPERVISOR AV block, 2nd degree NICM (nonischemic cardiomyopathy) (CMS/HCC) (HCC) ECG 12-LEAD STAT 06/05/2021 7:45 AM ANIMAL CRUELTY INVESTIGATION SUPERVISOR documented in this encounter Results * ECG 12 lead (06/05/2021 1:57 PM ANIMAL CRUELTY INVESTIGATION SUPERVISOR) 06/05/2021 1:57 PM ANIMAL CRUELTY INVESTIGATION SUPERVISOR Narrative [facility] - 06/06/2021 7:47 PM ANIMAL CRUELTY INVESTIGATION SUPERVISOR Vent Rate: 76 bpm RR Interval: 788 msec [place] Interval: 153 msec QRS Duration: 133 msec QT Interval: 414 msec QTC Interval: 444 msec P-R-T [place]: 16 - 82 - 114 degrees SINUS RHYTHM RIGHT BUNDLE BRANCH BLOCK DIFFUSE T-WAVE ABNORMALITIES ABNORMAL ECG Electronically Signed By: Cam Tejeda MD [facility] Ashvin Recio III, MD ECG ORDERABLES [facility] al Result [facility] * X-ray chest 2 views (06/05/2021 1:51 PM ANIMAL CRUELTY INVESTIGATION SUPERVISOR) Anatomical Region Laterality Modality Body, Chest N/A Computed Radiogr aphy 06/05/2021 1:54 PM ANIMAL CRUELTY INVESTIGATION SUPERVISOR Impressions 06/05/2021 1:54 PM ANIMAL CRUELTY INVESTIGATION SUPERVISOR 1. Internal cardiac defibrillator which follows an expected course without evidence of pneumothorax. COMMENT: Please see above for additional findings. Electronically signed by: Philippe Jara M.D. Narrative 06/05/2021 1:54 PM ANIMAL CRUELTY INVESTIGATION SUPERVISOR Chest Radiograph, two views HISTORY: Status post [...] chest 1 view (Portable) (06/05/2021 9:56 AM ANIMAL CRUELTY INVESTIGATION SUPERVISOR) Anatomical Region Laterality Modality Body, Chest N/A Computed Radiogr aphy 06/05/2021 10:0 9 AM ANIMAL CRUELTY INVESTIGATION SUPERVISOR Impressions 06/05/2021 10:09 AM ANIMAL CRUELTY INVESTIGATION SUPERVISOR 1. ??Interval placement of left chest wall cardiac device and leads. 2. ??No pneumothorax or acute cardiopulmonary findings. Electronically signed by: Shine Skelton M.D. Narrative 06/05/2021 10:09 AM ANIMAL CRUELTY INVESTIGATION SUPERVISOR XR CHEST 1 VIEW: 06/05/2021 9:35 AM [...] * ICD DC NEW (06/05/2021 9:11 AM ANIMAL CRUELTY INVESTIGATION SUPERVISOR) Anatomical Region Laterality Modality X-Ray Angiograph y Ashvin Recio III, MD CV ELECTROPHYSIOLOG Y PROCS Final Result * ECG 12 lead (06/05/2021 7:45 AM ANIMAL CRUELTY INVESTIGATION SUPERVISOR) 06/05/2021 7:45 AM ANIMAL CRUELTY INVESTIGATION SUPERVISOR Narrative [facility] - 06/05/2021 6:20 PM ANIMAL CRUELTY INVESTIGATION SUPERVISOR Vent Rate: 69 bpm RR Interval: 858 msec [place] Interval: 161 msec QRS Duration: 134 msec QT Interval: 433 msec QTC Interval: 453 msec P-R-T [place]: 8 - 82 - 209 degrees SINUS RHYTHM RIGHT BUNDLE BRANCH BLOCK MODERATE T-WAVE ABNORMALITY, nonspecific ABNORMAL ECG Electronically Signed By: Tg Houston MD, [facility] us Ashvin Recio III, MD ECG ORDERABLES Fin al Result [facility] documented in this encounter Visit Diagnoses Diagnosis AV block, 2nd degree Other second degree atrioventricular block NICM (nonischemic cardiomyopathy) (CMS/HCC) (HCC) Apical variant hypertrophic cardiomyopathy (HCC) AV block, 2nd degree Other second degree atrioventricular block NICM (nonischemic cardiomyopathy) (CMS/HCC) (HCC) documented in this encounter Admitting [...] 0930, Indications: PainIndications:Pain Given 06/05/2021 2:10 PM ANIMAL CRUELTY INVESTIGATION SUPERVISOR 650 mg Given 06/05/2021 9:48 AM ANIMAL CRUELTY INVESTIGATION SUPERVISOR ceFAZolin 2,000 mg in 0.9 % sodium chloride solution 500 mL (pocket flush) As needed, Starting on Thu06/05/21 at 0855, Intra-Procedure (CV) Given 06/05/2021 8:55 AM ANIMAL CRUELTY INVESTIGATION SUPERVISOR 2,000 mg Surgical Site heparin in 0.9% sodium chloride 1,000 units/500 mL (2 unit/mL) infusion (premix) As needed, Starting on Thu06/05/21 at 0908, Intra-Procedure (CV) Given 06/05/2021 9:08 AM ANIMAL CRUELTY INVESTIGATION SUPERVISOR 500 mL ioversoL (OPTIRAY 320) injection As needed, Starting on Thu06/05/21 at 0807, Intra-Procedure (CV) Given 06/05/2021 8:07 AM ANIMAL CRUELTY INVESTIGATION SUPERVISOR 10 mL Left Forearm lidocaine (XYLOCAINE) 20 mg/mL (2 %) injection As needed, Starting on Thu06/05/21 at 0826, Intra-Procedure (CV), Indications: Administration of Local AnesthesiaIndications:Admini stration of Local Anesthesia Given 06/05/2021 8:26 AM ANIMAL CRUELTY INVESTIGATION SUPERVISOR 20 mL Left Chest sodium chloride 0.9% flush 0.5-20 mL 0.5-20 [...] at 0745 New Bag 06/05/2021 7:51 AM ANIMAL CRUELTY INVESTIGATION SUPERVISOR 250 mL/hr documented in this encounter Discontinued Medications Medication Sig Discontinue Reason Start Date End Da te DULoxetine DR (CYMBALTA) 60 mg capsule Take 60 mg by mouth daily Duplicate order 10/31/2020 06/05/2021 documented as of this encounter Active and Recently Administered Medications Times are shown in ANIMAL CRUELTY INVESTIGATION SUPERVISOR. Scheduled Medication Order 06/03/2021 06/04/2021 06/05/2021 ceFAZolin [...] Surgical 0805 (Given - Provid er: Lotus Castillo, BELL SPINNER) sodium chloride 0.9% flush 0.5-20 mL 0.5-20 [...] Pain 0948 (Given - Provid er: Francisco hCavis RN)1410 (Given - Provider: Francisco Chavis RN) [...] sterile water (premix) 2,000 mg 1 06/05/2021 ondansetron (ZOFRAN) injection 4 mg 1 06/05 sodium chloride 0.9% flush 0.5-20 mL 2 05/27 sodium chloride 0.9% infusion 1 06/05/2021 Nursing Count Last Ordered Date First Orde red Date TELEMETRY MONITORING 1 06/05/2021 Discharge Count Last Ordered Date First Orde red Date DISCHARGE PATIENT 1 06/05/2021 documented in this encounter Care Teams Regulatory Internship Relationship Specialty Start Date End Date Enmanuel Gan MD [address] [facility] [address] [place] [address] PCP - General Internal Medicine 04/26/20 Tg Houston MD [address] [facility] [address] [place] [address] Consulting Physician Cardiology 07/18/20 Guerrero Hunter DPT [address] [facility] [address] [facility] [place], [place] [id number] Physical Therapist Physical Therapy 11/08/20 Guerrero Weiner, [facility] [address] [id number] Inside Sales Manager Physical Therapy 12/12/20 documented as of this encounter
--- OUTSIDE RECORDS SUMMARY | 2024-07-12 08:49 | XMS_ITS | Encounter Summary ---
Author Organization [facility] Address [address] [address] Care Team Providers Care Hand Sole Sewer Name Role Phone Enmanuel Gan MD Primary Care Provider [phone] Tg Houston MD Unavailable [phone] Guerrero Hunter DPT Unavailable [phone] Guerrero Weiner PAD CUTTER Unavailable [phone] Reason for Referral * Cardiology (Routine) - Closed Specialty Diagnoses / Procedures Referred By Contac t Referred To Contact Diagnoses NICM (nonischemic cardiomyopathy) (CMS/HCC) (HCC) Procedures DEVICE CHECK - IN OFFICE Ashvin Recio III, MD Phone: tel: fax: [facility] Referral ID Status Reason Start Date Expiration Date Visits Re quested Visits Authorized [id number] Closed 07/18/2021 08/17/2022 1 1 PMENT DETAILER * Cardiology (Routine) - Closed Specialty Diagnoses / Procedures Referred By Contac t Referred To Contact Diagnoses NICM (nonischemic cardiomyopathy) (CMS/HCC) (HCC) Procedures DEVICE CHECK - IN OFFICE Ashvin Recio III, MD Phone: tel: fax: [facility] Referral ID Status Reason Start Date Expiration Date Visits Re quested Visits Authorized [id number] Closed 06/06/2021 07/06/2022 1 1 PMENT DETAILER * Cardiology (Routine) - Closed Specialty Diagnoses / Procedures Referred By Contac t Referred To Contact Diagnoses NICM (nonischemic cardiomyopathy) (CMS/HCC) ([facility]) Procedures DEVICE CHECK - REMOTE Ashvin Recio III, MD Phone: tel: fax: [facility] Referral ID Status Reason Start Date Expiration Date Visits Re quested Visits Authorized [id number] Closed 06/06/2021 07/06/2022 1 1 PMENT DETAILER * Cardiology (Routine) - Closed Specialty Diagnoses / Procedures Referred By Contac t Referred To Contact Diagnoses NICM (nonischemic cardiomyopathy) (CMS/HCC) ([facility]) Procedures DEVICE CHECK - REMOTE Ashvin Recio III, MD Phone: tel: fax: [facility] Referral ID Status Reason Start Date Expiration Date Visits Re quested Visits Authorized [id number] Closed 06/06/2021 07/06/2022 1 1 PMENT DETAILER * Cardiology (Routine) - Closed Specialty Diagnoses / Procedures Referred By Contac t Referred To Contact Diagnoses NICM (nonischemic cardiomyopathy) ([facility]/HCC) ([facility]) Procedures DEVICE CHECK - REMOTE Ashvin Recio III, MD Phone: tel: fax: [facility] Referral ID Status Reason Start Date Expiration Date Visits Re quested Visits Authorized [id number] Closed 06/06/2021 07/06/2022 1 1 PMENT DETAILER * Cardiology (Routine) - Closed Specialty Diagnoses / Procedures Referred By Contac t Referred To Contact Diagnoses NICM (nonischemic cardiomyopathy) (CMS/HCC) (HCC) Procedures DEVICE CHECK - REMOTE Ashvin Recio III, MD Phone: tel: fax: [facility] Referral ID Status Reason Start Date Expiration Date Visits Re quested Visits Authorized [id number] Closed 06/06/2021 07/06/2022 1 1 PMENT DETAILER Encounter Details Date Type Department Care Team (Late st Contact Info) Description 06/06/2021 Orders Only Ar[facility] [address] [facility] [address] [place] [address] Ashvin Recio III, MD [address] [facility] [address] [place] [address] NICM (nonischemic cardiomyopathy) (CMS/HCC) (HCC) [...] 07/30/2020 How often do you attend [employer] or faith services? Never 07/30/2020 Do you [...] on file Legal Sex Female 9:09 PM EQUIPMENT DETAILER Gender Identity Not on file Sexual Orientation Lesbian 05/24/2019 9: 06 AM CDT documented as of this encounter Miscellaneous Notes * Addendum Note - Fabiana Lee RN - 06/06/2021 3:17 PM CSTAddended by: FABIANA LEE on: 07/18/2021 02:27 PM Modules accepted: Orders PMENT DETAILER documented in this encounter Plan of Treatment Not on file documented as of this encounter Results * DEVICE CHECK - REMOTE (01/26/2023 12:16 PM CDT) Anatomical Region Laterality Modality Other Narrative 01/27/2023 6:09 PM CDT Table formatting from the original result was not included. ICD CHECK (REMOTE) Patient ID: Macie Briseno is a 77 y.o. female This patient received a [employer] ICD. ??They had a remote transmission [...] 9.8 seconds Episodes last 90 days/Comments: AF Alder <1%. ??The longest episode lasted 8 seconds in duration. There was 1 stored episode classified as nonsustained VT which shows approximately 5 seconds of a dual tachycardia at 176 beats per minute. NORMAL DEVICE FUNCTION PROGRAMMED Medications: Anti-coagulant(s): ??Eliquis 5 mg twice daily Anti-arrhythmic(s): ??Diltiazem XR 180 mg daily PLAN: 1) normal [employer] ICD evaluation. 2) [employer] remote transmission scheduled in 3 months. 3) Programming appropriate for device measurements Yanni Lee RN Ashvin Recio III, MD [facility] PROCEDURES Final Result * DEVICE CHECK - REMOTE (10/24/2022 12:38 PM CDT) Anatomical Region Laterality Modality Other Narrative 11/06/2022 8:37 PM CDT Table formatting from the original result was not included. ICD CHECK (REMOTE) Patient ID: Macie Briseno is a 77 y.o. female This patient received a [employer] ICD. ??They had a remote transmission [...] 9.8 seconds Episodes last 90 days/Comments: AF Alder 0% 3 stored SVT episodes NORMAL DEVICE FUNCTION PROGRAMMED Medications: Anti-coagulant(s): ??Eliquis 5 mg twice daily Anti-arrhythmic(s): ??Cardizem 180 mg PLAN: 1) normal [employer] ICD evaluation. 2) [employer] remote transmission scheduled in 3 months. 3) Programming appropriate for device measurements Latisha Self RN Ashvin Recio III, MD [facility] PROCEDURES Final Result * DEVICE CHECK - REMOTE (07/11/2022 3:45 PM EQUIPMENT DETAILER) Anatomical Region Laterality Modality Other Narrative 07/17/2022 2:46 PM EQUIPMENT DETAILER Table formatting from the original result was not included. ICD CHECK (REMOTE) Patient ID: Macie Briseno is a 76 y.o. female This patient received a [employer] ICD. ??They had a remote transmission [...] 9.8 seconds Episodes last 90 days/Comments: AF Alder 0.1 %, longest duration reviewed EGM show short durations of dual tachycardia verses AT/AF. 2 stored ventricular events longest noted nonsustained event occurred on June 25, 2022 with a ventricular rate of 199 beats per minute for approximately 5.5 seconds in length. NORMAL DEVICE FUNCTION PROGRAMMED Medications: Anti-coagulant(s): ??Eliquis 5 mg twice daily Anti-arrhythmic(s): ??Cardizem CD 180 mg PLAN: 1) normal [employer] ICD evaluation. 2) [employer] remote transmission scheduled in 3 months. 3) Programming appropriate for device measurements Latisha Self RN Ashvin Recio III, MD [facility] PROCEDURES Final Result * DEVICE CHECK - IN OFFICE (03/24/2022 12:55 PM CDT) Anatomical Region Laterality Modality Other Narrative 03/25/2022 6:58 AM CDT Table formatting from the original result was not included. This patient received a [employer] ICD. ??They had a routine [employer] in office device interrogation on 03/24/2022. [...] 9.7 seconds Episodes last 90 days/Comments: AF Alder <0.1%, there were 3 stored events classified as ATR with all EGMs reviewed showing 1-1 tachy for brief duration. There was 1 stored event classified as nonsustained ventricular events showing 2 seconds of a 1-1 tachy. NORMAL DEVICE FUNCTION PROGRAMMED Medications - Anti-coagulant(s): ??Eliquis 5 mg twice daily Anti-arrhythmic(s): ??Diltiazem 180 mg daily Plan: 1) normal [employer] ICD evaluation. 2) [employer] remote transmission scheduled in 3 months. Srikanth Lee R.N. with Brooklynn Self R.N. Ashvin Recio III, MD [facility] C[facility] SERVICES PROCEDURES Final Result * DEVICE CHECK - REMOTE (09/09/2021 12:45 PM EQUIPMENT DETAILER) Anatomical Region Laterality Modality Other Narrative 09/10/2021 10:42 PM EQUIPMENT DETAILER This patient received a [employer] ICD. ??They had a routine [employer] remote transmission on 09/09/2021. Device implant [...] 9.5 seconds Episodes last 90 days/Comments: AF Alder less than 0.1 %, longest duration 5 seconds. 2 stored ventricular events both reviewed episodes show one-to-one tachy episodes versus VT. NORMAL DEVICE FUNCTION PROGRAMMED Medications - Anti-coagulant(s): ??Eliquis 5 mg twice daily Anti-arrhythmic(s): ??None Plan: 1) normal [employer] ICD evaluation. 2) [employer] remote transmission scheduled in 3 months. Latisha Self R.N. Ashvin Recio III, MD CV CARDIAC SERVICES PROCEDURES Final Result * DEVICE CHECK - IN OFFICE (07/22/2021 10:49 AM EQUIPMENT DETAILER) Anatomical Region Laterality Modality Other Narrative 07/22/2021 11:43 AM EQUIPMENT DETAILER This patient received a [employer] ICD. ??They had a routine in office transmission on 07/22/2021. Device implant indications: ??Nonischemic dilated cardiomyopathy ?? Interrogation of the patient? s device demonstrates the following: Presenting EGM: ??A sensed V sensed @ 85 bpm Lead Measurements Right Atrium Right Ventricle Sensitivity (mV) 8.9 mV Greater than 25 mV Impedence (Ohms) 556 ohms 451 ohms High Voltage Impedence ??72 ohms Pace Threshold 0.5 V @ 0.4 ms 0.5 V @ 0.4 ms Pacing % 1 % Less than 1 % Battery Status: ??10.5 years to [employer]UR[employer]IA with Charge Time 9.5 seconds Episodes last 90 days/Comments: AF Alder less than 1 %, there were 10 episodes classified as AT/AF with the longest lasting 6 seconds. There were no treated ventricular arrhythmias noted on today's in office device interrogation. NORMAL DEVICE FUNCTION PROGRAMMED Medications - Anti-coagulant(s): ??Eliquis 5 mg twice daily Anti-arrhythmic(s): ??None Plan: 1) normal [employer] ICD evaluation. 2) [employer] remote transmission scheduled in 3 months. Jacob Latif R.N. Ashvin Recio III, MD [facility] PROCEDURES Final Result documented in this encounter Visit Diagnoses Diagnosis NICM (nonischemic cardiomyopathy) (CMS/HCC) (HCC)- Primary NICM (nonischemic cardiomyopathy) (CMS/HCC) (HCC) Automatic implantable cardiac defibrillator in situ NICM (nonischemic cardiomyopathy) (CMS/HCC) (HCC) ICD (implantable cardioverter-defibrillator), dual, in situ ICD (implantable cardioverter-defibrillator), dual, in situ- Primary NICM (nonischemic cardiomyopathy) (CMS/HCC) (HCC) NICM (nonischemic cardiomyopathy) (CMS/HCC) (HCC) ICD (implantable cardioverter-defibrillator), dual, in situ NICM (nonischemic cardiomyopathy) (CMS/HCC) (HCC) ICD (implantable cardioverter-defibrillator), dual, in situ ICD (implantable cardioverter-defibrillator), dual, in situ- Primary NICM (nonischemic cardiomyopathy) (CMS/HCC) (HCC) documented in this encounter Care Teams Hand Sole Sewer Relationship Specialty Start Date End Date Enmanuel Gan MD [address] [facility] [address] [facility] [address] [place] [address] PCP - General Internal Medicine 04/26/20 Tg Houston MD [address] [place] [address] Consulting Physician Cardiology 07/18/20 Guerrero Hunter DPT [address] [facility] [address] [facility] [place] [address] Physical Therapist Physical Therapy 11/08/20 Guerrero Weiner, [facility] [id number] [place] [address] Cleaning Machine Operator Physical Therapy 12/12/20 documented as of this encounter
--- OUTSIDE RECORDS SUMMARY | 2024-07-12 08:49 | XMS_ITS | Encounter Summary ---
Author Organization [facility] Healthcare Address [address] [place] [address] Care Team Providers Care Planer Operator / Grader Name Role Phone Enmanuel Gan MD Primary Care Provider [phone] Tg Houston MD Unavailable [phone] Guerrero Hunter DPT Unavailable [phone] Guerrero Weiner MUSIC CRITIC Unavailable [phone] Encounter Details Date Type Department Care Team (Latest Contact Info) Description 06/05/2021 7:48 AM DIRECTOR SOCIAL SERVICE Anesthesia Event [facility] Electrophysiology Lab [address] [place] [id number] Tan Donahue MD [address] [facility] [place] [address] Lotus Castillo CRNA [address] [facility] [place] [address] Anesthesia Record Procedure Summary Procedure Name Responsible Anesthesiologist Anesthesia Start Time Anesthesia Stop Time INSERT/REPLACE IMPLANTABLE CARDIOVERTER-DEFIBRIL LATOR (ICD) DUAL CHAMBER SYSTEM 86271 Tan Donahue MD 06/05/21 0748 06/05/21 0925 Events Date Time Event Comment 06/05/2021 0721 0748 An Start 0748 An Start Data 0755 An Induction The patient was reevaluated immediately before moderate or deep sedation use and before anesthesia induction. 0800 Anesthesia Ready 0917 an stop data 0924 Handoff to RN I completed my handoff [...] disposition at the time of handoff: PACU 09 An Stop Meds Name Total lidocaine (CARDIAC) syringe 2 % 4 mL propofol 70 mg propofol 338.55 mg phenylephrine 100 mcg/mL 200 mcg ceFAZolin (ANCEF) 2,000 mg/20 mL in ster ile water (premix) 2,000 mg 2,000 mg sodium chloride 0.9% infusion 300 mL * Agents Name O2 * Blood No blood administrations on file. Lines, Drains, and Airways Type Details Placement Removal Cochlear Implant 06/19/20; 1200 06/19/20 1200 b y Marissa Sanchez BS Hearing Aid 12/11/17; 07/15/22; 0812/11/17 0000 by Anahy Frances Au.D. 07/15/22 0821 by Kathleen Marcum Ear Mold 12/11/17; 07/15/22; 0812/11/17 0000 by Anahy Frances Au.D. 07/15/22 0821 by Kathleen Marcum Closed/Suction/Open Drain 07/25/20; 1249; No; 1; Right, Posterior; Back; Accordion; 10 Fr. 07/25/20 1249 by Agatha Peters RN 06/05/21 1527 by Sharon Leo, [facility] RETIRED Surgical Site 07/25/20; 1313; Ba ck; xeroform 4x4 tegaderm; 12/03/23; 1859; Not present on admission (from previous admission) 07/25/20 1313 by Gianna Good RN 12/03/23 185 by Claudia Jerez, [facility] Peripheral IV Placement Date: 04/10/21; Placement Time: 724; Catheter Size: 22 G; Orientation: Right; Location: Antecubital; Insertion Attempts: 1; Removal Date: 06/05/21; Removal Time: 15204/10/21 0725 by Negro Watt, 06/05/21 152 by Sharon Leo, [facility] Peripheral IV Placement Date: 06/05/21; Placement Time: 07; Change Due: 06/09/21; Catheter Size: 20 G; Orientation: Left; Location: Forearm; Site Prep: Chlorhexidine; Removal Date: 06/05/21; Removal Time: 152606/05/21 07 by Laurence Rockwell RN 06/05/21 152 by Sharon Leo RN documented in this encounter Social History Tobacco [...] file Legal Sex Female 9:09 PM DIRECTOR SOCIAL SERVICE Gender Identity Not on file Sexual Orientation Lesbian 05/24/2019 9: 06 AM CDT documented as of this encounter OR Notes * Anesthesia Postprocedure Evaluation - Tan Donahue MD - 06/06/2021 6:54 AM CST Patient: Macie Briseno Procedure Summary Date: 06/05/21 Room / Location: [facility] EP LAB D / [facility] EP LAB Anesthesia Start: 747 Anesthesia Stop: 924 Procedure: INSERT/REPLACE IMPLANTABLE CARDIOVERTER-DEFIBRILLATOR (ICD) DUAL CHAMBER SYSTEM 22371 (N/A ) Diagnosis: AV block, 2nd degree NICM (nonischemic cardiomyopathy) (CMS/HCC) (HCC) (AV block, 2nd degree [I44.1]) (NICM (nonischemic cardiomyopathy) (CMS/HCC) (HCC) [I42.8]) Providers: Ashvin Recio III, MD Responsible Provider: Tan Donahue MD Anesthesia Type: general/TIVA ASA Status: 3 Anesthesia Type: general/TIVA Last vitals BP 139/73 Pulse 75 Temp 36.1 ??C (97 ??F) (Skin) Resp 12 SpO2 96% Anesthesia Post Evaluation Patient location during evaluation: PACU Patient participation: complete - patient participated Level of consciousness: follows simple commands and fully awake Pain management: adequate Airway patency: adequate Cardiovascular status: acceptable and hemodynamically stable Respiratory status: acceptable Hydration status: acceptable Pt is: normothermic Nausea/Vomiting status: none No complications documented. CTOR SOCIAL SERVICE * Anesthesia Preprocedure Evaluation - Tan Donahue MD - 06/05/2021 7:14 AM CST Images from the original note were not included. Anesthesia Evaluation Macie Briseno is a 75 y.o. female Procedure(s): INSERT/REPLACE IMPLANTABLE CARDIOVERTER-DEFIBRILLATOR (ICD) DUAL CHAMBER SYSTEM 84995 Pre-Op Diagnosis Codes: * AV block, 2nd degree [I44.1] * NICM (nonischemic cardiomyopathy) (CMS/HCC) (HCC) [I42.8] HISTORY HPI Pt presents for insertion ICD. Hx second degree heart block, and hypertropic cardiomyopathy. Past Medical History Information obtained from: patient and chart. Cardiovascular + Hypertension Comments: Conclusions: 1. LV systolic function is hyperdynamic, particularly the apex which demonstates systolic obliteration, strongly suggestive of apical hypertrophy cardiomyopathy. Ejection Fraction is estimated at 80 %. Diastolic indices overall most consistent with Grade II diastolic dysfunction (impaired myocardial relaxation with elevated filling pressures). Normal left ventricular cavity size. Moderate concentric left ventricular hypertrophy. Electronically Signed By: Tg Houston MD, [facility] 2021-03-29 17:39:23 CDT CC: CC: Patient Active Problem List Diagnosis ??? Microvascular angina (CMS/HCC) (HCC) ??? Dyslipidemia ??? Essential hypertension ??? Sensorineural hearing loss, asymmetrical ??? Lumbago ??? Neck pain ??? Orthopedic aftercare ??? Tinnitus, subjective ??? Active cochleovestibular Meniere's disease ??? Arthralgia of hip ??? Chronic nonseasonal allergic rhinitis due to pollen ??? Facet arthritis of cervical region ??? Facet arthritis of lumbar region ??? Facet arthropathy, thoracic ??? Foreign body in left ear ??? Hx of decompressive lumbar laminectomy ??? Lumbar radiculopathy ??? Major depressive disorder, single episode, moderate (HCC) ??? Primary osteoarthritis involving multiple joints ??? Pure hypercholesterolemia ??? S/P hip replacement ??? S/P laparoscopic cholecystectomy ??? Tinnitus ??? Sudden idiopathic hearing loss of right ear ??? Follow-up examination following surgery ??? Essential hypertension, benign ??? Sensorineural hearing loss (SNHL) of both ears ??? SNHL (sensory-neural hearing loss), asymmetrical ??? Meniere's disease of both ears ??? Abnormal ECG ??? 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 History of spinal fusion for scoliosis ??? Acute low back pain ??? Prophylactic antibiotic ??? Paroxysmal atrial fibrillation (CMS/HCC) (HCC) ??? Late effects of spine fusion ??? Post-operative pain ??? Abnormal echocardiogram ??? AV block, 2nd degree ??? Apical variant hypertrophic cardiomyopathy (CMS/HCC) (HCC) ??? Fusion of spine of thoracolumbar region Past Medical History: Diagnosis Date ??? Atrial [...] R - 2014 ??? OTHER SURGICAL HISTORY 1999 Sectioning of left vesibular nerve ??? VESTIBULAR NERVE SECTION Left OB History No obstetric history on file. Allergies Allergen Reactions ??? Adhesive Rash and Blisters Surgical tape ??? Chlorhexidine Rash ??? Sulfa (Sulfonamide Antibiotics) Hives and Rash ??? Gabapentin Other (See comments) Retain water Taking? Last Dose Start Date End Date Provider ALPRAZolam (XANAX) 0.25 mg tablet Past Month 04/10/21 -- Darshana Toth MD Take 1 tablet (0.25 mg total) by mouth nightly as needed (dizziness) atorvastatin (LIPITOR) 20 mg tablet 06/04/2021 07/29/18 -- ProviderEmmanuel MD calcium acetate,phosphat bind, (PHOSLO) 667 mg capsule 06/04/2021 -- -- Emmanuel Briones MD DULoxetine DR (CYMBALTA) 30 mg capsule 06/04/2021 12/21/19 -- Emmanuel Briones MD Eliquis 5 mg tablet 06/01/2021 04/23/21 -- Emmanuel Briones MD fexofenadine-pseudoephedrine (THELMA-D) 60-120 mg per 12 hr tablet 06/04/2021 -- -- Emmanuel Briones MD fluticasone (FLONASE) 50 mcg/actuation nasal spray 06/04/2021 06/15/12 -- Tg Houston MD inhale 1 spray (50MCG) by intranasal route every day in each nostril Patient taking differently: Administer into each nostril nightly magnesium citrate 100 mg tablet 06/04/2021 -- -- Emmanuel Briones MD montelukast (SINGULAIR) 10 mg tablet 06/04/2021 10/25/18 -- Emmanuel Briones MD potassium chloride ER 20 mEq CR tablet 06/04/2021 06/29/20 -- Emmanuel Briones MD sucralfate (CARAFATE) 1 gram tablet Past Week -- -- Emmanuel Briones MD triamterene-hydroCHLOROthiazide 37.5-25 mg per capsule 06/04/2021 11/17/19 -- Juan Carlos Jackson MD TAKE ONE CAPSULE BY MOUTH ONCE DAILY Patient taking differently: Take 1 tablet/capsule by mouth every morning Current Facility-Administered Medications: ??? ceFAZolin (ANCEF) 2,000 mg/20 mL in sterile water (premix) 2,000 mg, 2,000 mg, intravenous, Once ??? sodium chloride 0.9% flush 0.5-20 mL, 0.5-20 mL, intra-catheter, Q8H ELAINA ??? sodium chloride 0.9% flush 0.5-20 mL, 0.5-20 mL, intra-catheter, PRN ??? sodium chloride 0.9% infusion, 50 mL/hr, intravenous, Continuous Social History Tobacco Use Smoking Status Never Smoker Smokeless Tobacco Never Used Substance and Sexual Activity Alcohol Use Yes ??? Alcohol/week: 5.0 standard drinks ??? Types: 5 Glasses of wine per week Substance and Sexual Activity Drug Use Not [...] Neg Hx ??? Anesthesia problems Neg Hx There were no vitals filed for this visit. PT: No results found for requested labs within last 720 hours. INR: No results found for requested labs within last 720 hours. APTT: No results found for requested labs within last 720 hours. Hgb A1C: No results found for requested labs within last 720 hours. CBC RBC: No results found for requested labs within last 720 hours. RDW: 05/30/2021: 12.6 % MCHC: 05/30/2021: 33.1 g/dL MCH: 05/30/2021: 29.5 pg MCV: 05/30/2021: 89.0 fL Hct: 05/30/2021: 44.7 % Hgb: 05/30/2021: 14.8 g/dL WBC: 05/30/2021: 4.8 Thousand/uL MPV: 05/30/2021: 10.7 fL Platelets: 05/30/2021: 316 Thousand/uL RDW CV: No results found for requested labs within last 720 hours. RDW Sd: No results found for requested labs within last 720 hours. BMP Glucose: 05/30/2021: 91 mg/dL Calcium: 05/30/2021: 9.4 mg/dL Sodium: 05/30/2021: 141 mmol/L Potassium: 05/30/2021: 3.6 mmol/L CO2: 05/30/2021: 30 mmol/L Chloride: 05/30/2021: 104 mmol/L BUN: 05/30/2021: 16 mg/dL Creatinine: 05/30/2021: 0.88 mg/dL DOS Physical Exam Medical history, medications, and allergies reviewed. Attestation: This PAT evaluation 06/05/2021. Airway Exam: Mallampati: II Cervical ROM: FROM TM distance: >4 Jaw ROM: full Cardiovascular Exam: Rate: regular Rhythm: regular Pulmonary Exam: LCTA, bilat Dental Exam: Otherwise appears intact Anesthesia Plan ASA 3 My patient is approved for the Anesthesia Controlled Medication protocol when under care of a SENIOR APPLICATION SOFTWARE ENGINEER Planned anesthesia: General/TIVA Induction: Induction: intravenous. Informed Consent: Discussed plan with SENIOR APPLICATION SOFTWARE ENGINEER. Anesthesia plan and risks discussed with patient. Consent and Attending signature: I and/or my designee have discussed the anesthesia plan, benefits, possible alternatives, parental presence at time of induction (if indicated), and clinically relevant risks that may include dental injury, unintentional awareness, and/or other complications. The patient and/or parent/legal guardian understand, and agree to proceed. All questions answered. CTOR SOCIAL SERVICE documented in this encounter Plan of Treatment Not on file documented as of this encounter Visit Diagnoses Not on filedocumented in this encounter Administered Medications Inactive Administered Medications - up to 3 most recent administrations Medication Order MAR Action Action Date Dose Rate Site ceFAZolin (ANCEF) 2,000 mg/20 mL in sterile water (premix) 2,000 mg 2,000 mg, intravenous, at 400 mL/hr, Administer over 3 Minutes, Once, On Thu06/05/21 at 0745, For 1 dose, Pre-Procedure (CV), Administer within 60 minutes of incision., Indications: Prophylaxis, SurgicalIndications:Prophylaxis, Surgical Given 06/05/2021 8:05 AM DIRECTOR SOCIAL SERVICE 2,000 mg lidocaine (cardiac) (XYLOCAINE) preservative free injection intravenous, As needed, Starting on Thu06/05/21 at 0755, Anesthesia Intra-op, Indications: Ventricular ArrhythmiasIndications:Ventricul ar Arrhythmias Given 06/05/2021 7:55 AM DIRECTOR SOCIAL SERVICE 4 mL phenylephrine (JOANN-SYNEPHRINE) 1 mg/10 mL (100 mcg/mL) in sodium chloride 0.9% (premix) intravenous, As needed, Starting on Thu06/05/21 at 0840, Anesthesia Intra-op Given 06/05/2021 8:43 AM DIRECTOR SOCIAL SERVICE 100 mcg Given 06/05/2021 8:40 AM DIRECTOR SOCIAL SERVICE 100 mcg propofoL (DIPRIVAN) 10 mg/mL IV intravenous, As needed, Starting on Thu06/05/21 at 0755, Anesthesia Intra-op Given 06/05/2021 8:04 AM DIRECTOR SOCIAL SERVICE 20 mg Given 06/05/2021 7:59 AM DIRECTOR SOCIAL SERVICE 20 mg Given 06/05/2021 7:55 AM DIRECTOR SOCIAL SERVICE 30 mg propofoL (DIPRIVAN) 10 mg/mL IV intravenous, Continuous PRN, Starting on Thu06/05/21 at 0755, Anesthesia Intra-op Rate/Dose Change 06/05/2021 8:35 AM DIRECTOR SOCIAL SERVICE 60 mcg/kg/min 26.64 mL/hr Rate/Dose Change 06/05/2021 8:04 AM DIRECTOR SOCIAL SERVICE 75 mcg/kg/min 33.3 mL/hr New Bag 06/05/2021 7:55 AM DIRECTOR SOCIAL SERVICE 50 mcg/kg/min 22.2 mL/hr sodium chloride 0.9% infusion 50 mL/hr, intravenous, Continuous, Starting on Thu06/05/21 at 0745 New Bag 06/05/2021 7:51 AM DIRECTOR SOCIAL SERVICE 250 mL/hr documented in this encounter Care Teams Planer Operator / Grader Relationship Specialty Start Date End Date Enmanuel Gan MD [address] [place] [address] PCP - General Internal Medicine 04/26/20 Tg Houston MD [address] [facility] [address] [address] [place] [address] Consulting Physician Cardiology 07/18/20 Guerrero Hunter DPT [address] [facility] [address] [place] [address] Physical Therapist Physical Therapy 11/08/20 Guerrero Weiner, MUSIC CRITIC [address] [facility] [address] [place] [address] Floodplain Manager Physical Therapy 12/12/20 documented as of this encounter
--- OUTSIDE RECORDS SUMMARY | 2024-07-12 08:49 | XMS_ITS | Encounter Summary ---
Author Organization [facility] Healthcare Address [address] [place] [address] Care Team Providers Care Soil Field Technician Name Role Phone Enmanuel Gan MD Primary Care Provider [phone] Tg Houston MD Unavailable [phone] Guerrero Hunter DPT Unavailable [phone] Guerrero Weiner YARN DUMPER Unavailable [phone] Reason for Referral * Diagnostic Imaging (Routine) - Closed Specialty Diagnoses / Procedures Referred By Contac t Referred To Contact Diagnoses Fusion of spine of thoracolumbar region Procedures XR Scoliosis 6 or More Views Jeremy Michelle MD [address] [address] Phone: tel: fax: [facility] [address] [place] [address] Referral ID Status Reason Start Date Expiration Date Visits Re quested Visits Authorized [id number] Closed 05/06/2021 06/05/2022 1 1 Reason for Visit * Diagnostic Imaging (Routine) - Closed Specialty Diagnoses / Procedures Referred By Contac t Referred To Contact Diagnoses Fusion of spine of thoracolumbar region Procedures XR Scoliosis 6 or More Views Jeremy Michelle MD [address] [facility] [place] [address] Phone: tel: fax: [facility] [address] [facility] [place] [place] [address] Referral ID Status Reason Start Date Expiration Date Visits Re quested Visits Authorized [id number] Closed 05/06/2021 06/05/2022 1 1 Encounter Details Date Type Department Care Team (Latest Contact Info) Description 05/07/2021 7:54 AM CDT - 05/07/2021 11:59 PM CDT Hospital Encounter [facility] [address] [place] [address] Jeremy Michelle MD [address] [facility] [place] [address] Fusion of spine of thoracolumbar region Discharge [...] How often do you attend chur or faith services? Never 07/30/2020 Do you [...] on file Legal Sex Female 9:09 PM PHP LAMP DEVELOPER Gender Identity Not on file Sexual Orientation Lesbian 05/24/2019 9: 06 AM CDT documented as of this encounter Medications at Time of Discharge atorvastatin (LIPITOR) 20 mg tabletIndications: hyperlipidemia Take 1 tablet (20 mg total) by mouth nightly 07/29/2018 cephalexin (KEFLEX) 500 mg capsule Take 1 capsule (500 mg total) by mouth 2 (two) times a day for 5 days 10 capsule 06/05/2021 1 ALPRAZolam (XANAX) 0.25 mg tablet Take 1 tablet (0.25 mg total) by mouth nightly as needed (dizziness) 30 tablet 04/10/2021 2 calcium acetate,phosphat bind, (PHOSLO) 667 mg capsuleIndications :supplement Take 2 capsules (1,334 mg total) by mouth every morning [address] (CYMBALTA) 30 mg capsuleIndications :Anxiety with Depression Take 3 capsules (90 mg total) by mouth every morning 12/21/[address] (CYMBALTA) 60 mg capsule Take 60 mg by mouth daily 10/31/2020 1 Eliquis 5 mg tabletIndications: atrial fibrillation [...] VIEWS Schedule Routine, Read Routine (OP Routine) 05/07/2021 8:25 AM CDT Fusion of spine of thoracolumbar region documented [...] Diagnoses Diagnosis Fusion of spine of thoracolumbar region documented in this encounter Care Teams Soil Field Technician Relationship Specialty Start Date End Date Enmanuel Gan MD [address] [facility] [address] [place] [address] [place] [address] PCP - General Internal Medicine 04/26/20 Tg Houston MD [address] [facility] [address] [place] [address] Consulting Physician Cardiology 07/18/20 Guerrero Hunter DPT [address] [facility] [address] [facility] [place] [address] Physical Therapist Physical Therapy 11/08/20 Guerrero Weiner, [facility] [address] [place] [address] Dairy Husbandman Physical Therapy 12/12/20 documented as of this encounter
--- OUTSIDE RECORDS SUMMARY | 2024-07-12 08:49 | XMS_ITS | Encounter Summary ---
Author Organization [facility] Address [address] [facility] [address] [place] [address] Care Team Providers Care Mail Deliverer Name Role Phone Enmanuel Gan MD Primary Care Provider [phone] Tg Houston MD Unavailable [phone] Guerrero Hunter DPT Unavailable [phone] Guerrero Weiner SPECIAL EQUIPMENT TECHNICIAN Unavailable [phone] Encounter Details Date Type Department Care Team (Late st Contact Info) Description 05/07/2021 Telephone [facility] Cardiology [address] [facility] [address] [place] [address] Tg Houston MD [facility] [facility] [address] [place] [address] Social History Tobacco Use Types [...] How often do you attend [facility] or anabaptist services? 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 * Telephone Encounter - Tg Houston MD - 05/07/2021 5:13 PM CDT Steroid injection should be okay. * Telephone Encounter - Jasmin Rodriguez RDCS - 05/07/2021 4:08 PM CDT Patient notified of LS recommendations. Patient has new question to address. Any contraindication to obtaining steroid injections in her SI joint . Nothing is currently scheduled. Chart to for review. * Telephone Encounter - Tg Houston MD - 05/07/2021 3:44 PM CDT I would say that she still does need it. 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 * Telephone Encounter - Lea Holland RN - 05/07/2021 3:20 PM CDT Pt calling she has questions since her event monitor came back with good results does she really need the PPM placement. documented in this encounter Plan of Treatment Not on file documented as of this encounter Visit Diagnoses Not on filedocumented in this encounter Care Teams Mail Deliverer Relationship Specialty Start Date End Date Enmanuel Gan MD [address] [facility] [address] [place] [address] PCP - General Internal Medicine 04/26/20 Tg Houston MD [address] [facility] [address] [place] [address] Consulting Physician Cardiology 07/18/20 Guerrero Hunter DPT [address] [facility] [address] [place], [place] [id number] Physical Therapist Physical Therapy 11/08/20 Guerrero Weiner, SPECIAL EQUIPMENT TECHNICIAN [address] [facility] [address] [place] [address] Rn Staff Physical Therapy 12/12/20 documented as of this encounter
--- OUTSIDE RECORDS SUMMARY | 2024-07-12 08:49 | XMS_ITS | Encounter Summary ---
Author Organization [facility] Address [address] [facility] [address] [place] [address] Care Team Providers Care Front Office Clerk Name Role Phone Enmanuel Gan MD Primary Care Provider Tg Houston MD Unavailable [phone] Guerrero Hunter DPT Unavailable [phone] Guerrero Weiner ALMOND PASTE MIXER Unavailable [phone] Reason for Visit * Cardiology (Routine) - Closed Specialty Diagnoses / Procedures Referred By Gigi t Referred To Contact Diagnoses NICM (nonischemic cardiomyopathy) (CMS/HCC) (HCC) Procedures DEVICE CHECK - IN OFFICE Ashvin Recio III, MD Phone: tel: fax: [facility] Referral ID Status Reason Start Date Expiration Date Visits Re quested Visits Authorized [id number] Closed 06/06/2021 07/06/2022 1 1 Encounter Details Date Type Department Care Team (Latest Contact Info) Description 07/22/2021 11:00 AM LIBRARY TECHNOLOGY INSTRUCTOR Ancillary Procedure Arrhythmia Center [address] [facility] [address] [place] [address] NICM (nonischemic cardiomyopathy) (CMS/HCC) (HCC); Automatic implantable cardiac defibrillator in situ Social History Tobacco Use Types [...] on file Legal Sex Female 9:09 PM LIBRARY TECHNOLOGY INSTRUCTOR Gender Identity Not on file Sexual Orientation Lesbian 05/24/2019 9: 06 AM CDT documented as of this encounter Plan of Treatment Not on file documented as of this encounter Procedures Procedure Name Priority Date/Time Associated Diagnosis Comments DEVICE CHECK - IN OFFICE Routine 07/22/2021 10:49 AM LIBRARY TECHNOLOGY INSTRUCTOR NICM (nonischemic cardiomyopathy) (CMS/HCC) ([facility]) documented in this encounter Results * DEVICE CHECK - IN OFFICE (07/22/2021 10:49 AM LIBRARY TECHNOLOGY INSTRUCTOR) Anatomical Region Laterality Modality Other Narrative 07/22/2021 11:43 AM LIBRARY TECHNOLOGY INSTRUCTOR This patient received a [employer] ICD. ??They had a routine in [...] 9.5 seconds Episodes last 90 days/Comments: AF [place] less than 1 %, there were 10 episodes classified as AT/AF with the longest lasting 6 seconds. There were no treated ventricular arrhythmias noted on today's in office device interrogation. NORMAL DEVICE FUNCTION PROGRAMMED Medications - Anti-coagulant(s): ??Eliquis 5 mg twice daily Anti-arrhythmic(s): ??None Plan: 1) normal [employer] ICD evaluation. 2) [employer] remote transmission scheduled in 3 months. Jacob Latif R.N. Ashvin Recio III, MD CV CARDIAC SERVICES PROCEDURES Final Result documented in this encounter Visit Diagnoses Diagnosis NICM (nonischemic cardiomyopathy) ([facility]) ([facility]) Automatic implantable cardiac defibrillator in situ documented in this encounter Care Teams Front Office Clerk Relationship Specialty Start Date End Date Enmanuel Gan MD [address] [facility] [address] [place] [address] PCP - General Internal Medicine 04/26/20 Tg Houston MD [address] [facility] [address] [place] [address] Consulting Physician Cardiology 07/18/20 Guerrero Hunter DPT [address] [facility] [address] [facility] [place] [address] Physical Therapist Physical Therapy 11/08/20 Guerrero Weiner, ALMOND PASTE MIXER [id number] [place] [address] Waste Elimination Physical Therapy 12/12/20 documented as of this encounter
--- OUTSIDE RECORDS SUMMARY | 2024-07-12 08:49 | XMS_ITS | Encounter Summary ---
Author Organization [facility] Address [address] [facility] [address] [place] [address] Care Team Providers Care Discovery Manager Name Role Phone Enmanuel Gan MD Primary Care Provider [phone] Tg Houston MD Unavailable [phone] Guerrero Hunter DPT Unavailable [phone] Guerrero Weiner WET COTTON FEEDER Unavailable [phone] Reason for Visit * Reason Onset Date Comments Results 05/01/2021 Encounter Details Date Type Department Care Team (Late st Contact Info) Description 05/01/2021 Telephone [facility] Cardiology [address] [facility] [address] [place] [address] Tg Houston MD [address] [place] [address] [address] [place] [address] Results Social History Tobacco Use Types Packs/Day [...] attend chur ch or nondenominational services? Never 07/30/2020 Do you belong to [...] on file Legal Sex Female 9:09 PM FOIL CUTTER Gender Identity Not on file Sexual Orientation Lesbian 05/24/2019 9: 06 AM CDT documented as of this encounter Miscellaneous Notes * Telephone Encounter - Alina Read - 05/02/2021 8:32 AM CDT Called and informed pt of PARMINDER results, pt verbalized understanding. * Telephone Encounter - Jasmin Rodriguez RDCS - 05/01/2021 3:47 PM CDT LM on AM to call office for results. FU 07/09/2021 * Telephone Encounter - Jasmin Rodriguez RDCS - 05/01/2021 3:47 PM CDT ----- Message from Tg Houston MD sent at 05/01/2021 3:40 PM CDT ----- Event monitor looks good. There is no atrial fibrillation. There is no AV block. There is one very short run of ventricular tachycardia which did not cause any symptoms. There are some premature beats but nothing worrisome. I see that she is scheduled to undergo device implantation next month with Dr. Recio, and I will see her in June. documented in this encounter Plan of Treatment Not on file documented as of this encounter Visit Diagnoses Not on filedocumented in this encounter Care Teams Discovery Manager Relationship Specialty Start Date End Date Enmanuel Gan MD [address] [facility] [address] [place] [address] PCP - General Internal Medicine 04/26/20 Tg Houston MD [address] [facility] [address] [place] [address] Consulting Physician Cardiology 07/18/20 Guerrero Hunter DPT [address] [facility] [address] [facility] [place] [address] Physical Therapist Physical Therapy 11/08/20 Guerrero Weiner PTA [address] [place] [address] Coat Baster Physical Therapy 12/12/20 documented as of this encounter
--- OUTSIDE RECORDS SUMMARY | 2024-07-12 08:49 | XMS_ITS | Encounter Summary ---
Author Organization [facility] Address [address] [facility] [address] [place] [address] Care Team Providers Care Restaurant Management Internship Name Role Phone Enmanuel Gan MD Primary Care Provider [phone] Tg Houston MD Unavailable [phone] Guerrero Hunter DPT Unavailable [phone] Guerrero Weiner BIT SHARPENER OPERATOR Unavailable [phone] Reason for Visit * Reason Comments Abnormal ECG Microvascular angina Atrial Fibrillation Encounter Details Date Type Department Care Team (Latest Contact Info) Description 07/09/2021 2:15 PM TIRE RECAPPER Office Visit [facility] Cardiology [address] [facility] [address] [place] [address] Tg Houston MD [address] [place] [address] [address] [place] [address] Apical variant hypertrophic cardiomyopathy (CMS/HCC) (HCC) (Primary Dx); Paroxysmal atrial fibrillation (CMS/HCC) (HCC); Microvascular angina (CMS/HCC) (HCC); Essential hypertension; Pure hypercholesterolemia Social History Tobacco Use Types [...] attend chur ch or gnosticist services? Never 07/30/2020 Do you belong to [...] on file Legal Sex Female 9:09 PM TIRE RECAPPER Gender Identity Not on file Sexual Orientation Lesbian 05/24/2019 9: 06 AM CDT documented as of this encounter Last Filed Vital Signs Vital Sign Reading Time Taken Comments Blood Pressure 104/58 07/09/2021 2:07 PM TIRE RECAPPER Pulse 69 07/09/2021 2:07 PM TIRE RECAPPER Temperature - - Respiratory Rate - - Oxygen Saturation 96% 07/09/2021 2:07 PM TIRE RECAPPER Inhaled Oxygen Concentration - - Weight 76.2 kg (168 lb) 07/09/2021 2:07 PM TIRE RECAPPER Height 163.8 cm (5' 4.5 ) 07/09/2021 2:07 PM TIRE RECAPPER Body Mass Index 28.39 07/09/2021 2:07 PM TIRE RECAPPER documented in this encounter Progress Notes * Tg Houston MD - 07/09/2021 2:15 PM CST Patient Name: Macie Briseno Provider: Tg Houston MD : 1945 Date of Service: 07/09/2021 Referring: Celso CHIEF COMPLAINT: Paroxysmal atrial fibrillation Microvascular angina HISTORY OF PRESENT ILLNESS: 75 y.o. 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 She has [...] the day of anticipated discharge in corresponded with atrial fibrillation. She was anticoagulated and started on flecainide and has had no further episodes since. She was hospitalized at [facility] from 03/28/21-03/29/21 after having developed exertional shortness of breath, weakness, lightheadedness, and sweating in mid February leading to a hospitalization at [place] during which she was noted to be [...] apical hypertrophy, confirmed with a cardiac MR. Since last seen, she did receive an ICD on 06/05/2021. She is not having any symptoms of chest discomfort. She has mild exertional dyspnea but attributes it to deconditioning as she has not been exercising much, both because of boredom/depression and because of orthopedic issues. She is not having any lightheadedness or dizziness. MEDICATIONS: Outpatient Encounter Medications as of 07/09/2021 Medication Sig Dispense Refill ??? ALPRAZolam (XANAX) 0.25 mg tablet Take 1 tablet (0.25 mg total) by mouth nightly as needed (dizziness) 30 tablet 0 ??? atorvastatin (LIPITOR) 20 [...] (Patient taking differently: Administer into each nostril nightly ) 0 ??? magnesium citrate 100 mg tablet [...] Take 1 tablet/capsule by mouth every morning ) 90 capsule 3 ??? [DISCONTINUED] montelukast (SINGULAIR) 10 mg tablet Take 10 mg by mouth nightly No facility-administered encounter medications on file as of 07/09/2021. REVIEW OF SYSTEMS: General: No fever, chills, malaise or fatigue Eyes: No alterations in visual acuity ENT: No alterations in auditory acuity, no sore throat. Pulmonary: No dyspnea, cough or hemoptysis Cardiac: no chest pain, no orthopnea, PND or palpitations GI: No nausea, vomiting, diarrhea or constipation Musculoskeletal: No myalgias or arthralgias +back pain Skin: no rashes Neuro: No headaches, parathesias or focal neurological complaints Endocrine: No cold or heat intolerance Heme: no excessive bleeding or bruising PHYSICAL EXAM: Vitals: 07/09/21 1407 BP: 104/58 Pulse: 69 SpO2: 96% Weight: 76.2 kg (168 lb) Height: 163.8 cm (5' 4.5 ) Body mass index is 28.39 kg/m??. General: Well appearing, No pain or distress, well nourished. Eyes: AYUSH/EOMI, Conjuctiva Clear ENT: External ears/nose normal Neck: Supple Vascular: Carotid upstrokes brisk bilaterally and without bruits. Respiratory: Clear to ausculation bilaterally; no wheezing/rales/rhonchi; respirations nonlabored Cardiovascular: RRR, normal S1 and S2. No S3 or S4. No murmurs or rubs. Gastrointestinal: abdomen soft and nontender Extremities: no cyanosis or clubbing or edema Musculoskeletal: no obvious joint deformities. Skin: no obvious rash or bruising Psychiatric: normal affect Neurologic: awake/alert, no focal deficits ASSESSMENT & PLAN: Diagnoses and all orders for this visit: Apical variant hypertrophic cardiomyopathy (CMS/HCC) ([facility]) (Primary) Assessment & Plan: Apical hypertrophic cardiomyopathy without evidence of congestive heart failure. She has an ICD. Paroxysmal atrial fibrillation (CMS/HCC) (HCC) Assessment & Plan: Chronically anticoagulated with Eliquis. Microvascular angina (CMS/HCC) ([facility]) Assessment & Plan: No recent symptoms. She had previously been on diltiazem for this, but is doing well without diltiazem at this time. Essential hypertension Assessment & Plan: Blood pressure is normal on triamterene hydrochlorothiazide 37.5/25 mg daily which was actually prescribed for her ears. Pure hypercholesterolemia Assessment & Plan: Continue atorvastatin 20 mg daily. RECAPPER documented in this encounter Miscellaneous Notes * Assessment & Plan Note - Tg Houston MD - 07/09/2021 3:34 PM TIRE RECAPPER Associated Problem(s): Pure hypercholesterolemia Continue atorvastatin 20 mg daily. RECAPPER * Assessment & Plan Note - Tg Houston MD - 07/09/2021 3:34 PM TIRE RECAPPER Associated Problem(s): Essential hypertension (Deleted) Blood pressure is normal on triamterene hydrochlorothiazide 37.5/25 mg daily which was actually prescribed for her ears. RECAPPER * Assessment & Plan Note - Tg Houston MD - 07/09/2021 3:33 PM TIRE RECAPPER Associated Problem(s): Microvascular angina (HCC) No recent symptoms. She had previously been on diltiazem for this, but is doing well without diltiazem at this time. RECAPPER * Assessment & Plan Note - Tg Houston MD - 07/09/2021 3:33 PM TIRE RECAPPER Associated Problem(s): Paroxysmal atrial fibrillation (CMS/HCC) (HCC) Chronically anticoagulated with Eliquis. RECAPPER * Assessment & Plan Note - Tg Houston MD - 07/09/2021 3:32 PM TIRE RECAPPER Associated Problem(s): Apical variant hypertrophic cardiomyopathy (HCC) Apical hypertrophic cardiomyopathy without evidence of congestive heart failure. She has an ICD. RECAPPER documented in this encounter Plan of Treatment Not on file documented as of this encounter Procedures Procedure Name Priority Date/Time Associated Diagnosis Comments LIPID PANEL Routine 03/12/2021 10:24 AM CDT documented in this encounter Results * Lipid panel (03/12/2021 10:24 AM CDT) SCRIBED Cholesterol, Total 157 0 - 200 [facility] SCRIBED HDL 74 50 - > = [facility] SCRIB[facility] LDL 67 0 - 100 [facility] SCRIB[facility] Triglycerides 104 0 - 150 [facility] Blood specimen (specimen) 03/12/2021 10:24 AM CDT Enmanuel Gan MD LAB BLOOD ORDERABLES Final Re sult [facility] documented in this encounter Visit Diagnoses Diagnosis Apical variant hypertrophic cardiomyopathy (HCC)- Primary Paroxysmal atrial fibrillation (CMS/HCC) (HCC) Atrial fibrillation Microvascular angina (HCC) Essential hypertension Unspecified essential hypertension Pure hypercholesterolemia documented in this encounter Discontinued Medications Medication Sig Discontinue Reason Start Date End Da te montelukast (SINGULAIR) 10 mg tabletIndications:Season al Allergic Rhinitis Take 10 mg by mouth nightly Therapy completed 10/25/2018 07/09/2021 documented as of this encounter Care Teams Restaurant Management Internship Relationship Specialty Start Date End Date Enmanuel Gan MD [address] [facility] [address] [place] [address] PCP - General Internal Medicine 04/26/20 Tg Houston MD [address] [facility] [address] [place] [address] Consulting Physician Cardiology 07/18/20 Guerrero Hunter DPT [address] [facility] [address] [place] [address] Physical Therapist Physical Therapy 11/08/20 Guerrero Weiner, BIT SHARPENER OPERATOR [address] [facility] [address] [place] [address] Avid Editor Physical Therapy 12/12/20 documented as of this encounter
--- OUTSIDE RECORDS SUMMARY | 2024-07-12 08:49 | XMS_ITS | Encounter Summary ---
Author Organization [facility] Address [address] [place] [address] Care Team Providers Care Performance Improvement Manager Name Role Phone Enmanuel Gan MD Primary Care Provider [phone] Tg Houston MD Unavailable [phone] Guerrero Hunter DPT Unavailable [phone] Guerrero Weiner GRIP Unavailable [phone] Reason for Referral * Diagnostic Imaging (Routine) - Closed Specialty Diagnoses / Procedures Referred By Contac t Referred To Contact Diagnoses Fusion of spine of lumbar region Procedures XR Scoliosis 6 or More Views Jeremy Michelle MD [address] [place] [place] [address] Phone: tel: fax: [facility] [address] [place] [address] Referral ID Status Reason Start Date Expiration Date Visits Re quested Visits Authorized [id number] Closed 07/18/2021 08/17/2022 1 1 PROFESSOR Reason for Visit * Diagnostic Imaging (Routine) - Closed Specialty Diagnoses / Procedures Referred By Contac t Referred To Contact Diagnoses Fusion of spine of lumbar region Procedures XR Scoliosis 6 or More Views Jeremy Michelle MD [address] [place] [place] [address] Phone: tel: fax: [facility] [address] [place] [address] Referral ID Status Reason Start Date Expiration Date Visits Re quested Visits Authorized [id number] Closed 07/18/2021 08/17/2022 1 1 Encounter Details Date Type Department Care Team (Latest Contact Info) Description 07/23/2021 7:56 AM ESL PROFESSOR - 07/23/2021 11:59 PM ESL PROFESSOR Hospital Encounter [facility] Radiology [facility] [address] [place] [address] Jeremy Michelle MD [address] [facility] [place] [address] Fusion of spine of lumbar region Discharge [...] often do you attend chur ch or congregational services? Never 07/30/2020 Do you belong to [...] on file Legal Sex Female 9:09 PM ESL PROFESSOR Gender Identity Not on file Sexual Orientation [...] VIEWS Schedule Routine, Read Routine (OP Routine) 07/23/2021 8:20 AM ESL PROFESSOR Fusion of spine of lumbar region documented in this encounter Results * XR Scoliosis 6 or More Views (07/23/2021 8:20 AM ESL PROFESSOR) Anatomical Region Laterality Modality Spine N/A Computed Radiogr aphy 07/23/2021 8:27 AM ESL PROFESSOR Impressions 07/23/2021 8:27 AM ESL PROFESSOR Unchanged posterior decompression and instrumented fusion L1 L4 with anterior fusion L2-S1. Unchanged mild lucency surrounding the L1 pedicular screws. Electronically signed by: Samson Aragon M.D. Narrative 07/23/2021 8:27 AM ESL PROFESSOR EXAMINATION: Scoliosis 6 or more views HISTORY: [...] screws. Electronically signed by: Samson Aragon M.D. Jeremy Michelle MD IMG XR PROCEDURES Fi nal Result documented in this encounter Visit Diagnoses Diagnosis Fusion of spine of lumbar region documented in this encounter Care Teams Performance Improvement Manager Relationship Specialty Start Date End Date Enmanuel Gan MD [address] [facility] [address] [place] [address] PCP - General Internal Medicine 04/26/20 Tg Houston MD [address] [facility] [address] [place] [address] Consulting Physician Cardiology 07/18/20 Guerrero Hunter DPT [address] [facility] [address] [place], [place] [id number] Physical Therapist Physical Therapy 11/08/20 Guerrero Weiner, [facility] [address] [facility] [address] [place] [address] J2Ee Developer Physical Therapy 12/12/20 documented as of this encounter
--- OUTSIDE RECORDS SUMMARY | 2024-07-12 08:49 | XMS_ITS | Encounter Summary ---
Author Organization [facility] Address [address] [facility] [address] [place] [address] Care Team Providers Care Debt Counselor Name Role Phone Enmanuel Gan MD Primary Care Provider [phone] Tg Houston MD Unavailable [phone] Guerrero Hunter DPT Unavailable [phone] Guerrero Weiner CUSTOMER ACCOUNT COORDINATOR Unavailable [phone] Reason for Visit * Cardiology (Routine) - Closed Specialty Diagnoses / Procedures Referred By Gigi orosco Referred To Contact Diagnoses Paroxysmal atrial fibrillation (CMS/HCC) (HCC) AV block, 2nd degree Apical variant hypertrophic cardiomyopathy (HCC) Procedures DEVICE CHECK - IN OFFICE Ashvin Recio III, MD Phone: tel: fax: [facility] Referral ID Status Reason Start Date Expiration Date Visits Re quested Visits Authorized [id number] Closed 04/15/2021 05/15/2022 1 1 Encounter Details Date Type Department Care Team (Latest Contact Info) Description 06/12/2021 11:15 AM CADDIE Ancillary Procedure Arrhythmia Center [address] [facility] [address] [place] [id number] Paroxysmal atrial fibrillation (CMS/HCC) (HCC); AV block, 2nd degree; Apical variant hypertrophic cardiomyopathy (CMS/HCC) (HCC); Automatic implantable cardiac defibrillator in [...] attend chur ch or taoism services? Never 07/30/2020 Do you belong to [...] on file Legal Sex Female 9:09 PM CADDIE Gender Identity Not on file Sexual Orientation Lesbian 05/24/2019 9: 06 AM CDT documented as of this encounter Plan of Treatment Not on file documented as of this encounter Procedures Procedure Name Priority Date/Time Associated Diagnosis Comments DEVICE CHECK - IN OFFICE Routine 06/12/2021 11:08 AM CADDIE Paroxysmal atrial fibrillation (CMS/HCC) (HCC) AV block, 2nd degree Apical variant hypertrophic cardiomyopathy (CMS/HCC) (HCC) documented in this encounter Results * DEVICE CHECK - IN OFFICE (06/12/2021 11:08 AM CADDIE) Anatomical Region Laterality Modality Other Narrative 06/12/2021 12:45 PM CADDIE This patient received a [employer] ICD. ??They had a routine [employer] in office device interrogation ??on 06/12/2021. 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 Interrogation of the patient? s device demonstrates the following: Presenting EGM: ??A sense V sense @ 67 bpm Lead Measurements Right Atrium Right Ventricle Sensitivity (mV) 8.0 mV >25.0 mV Impedence (Ohms) 545 ohms 431 ohms High Voltage Impedence ??61 ohms Pace Threshold 0.6 V @ 0.40 ms 0.60 V @ 0.40 ms Pacing % <1 % <1 % Battery Status: ??10.5 years to YURIDIA with Charge Time 9.5 seconds Episodes last 90 days/Comments: AF [place] 0% There were no new ventricular events noted on today's remote interrogation. NORMAL DEVICE FUNCTION PROGRAMMED Medications - Anti-coagulant(s): ??Eliquis 5 mg Anti-arrhythmic(s): ??None Plan: 1) normal [employer] ICD evaluation. 2) device interrogation on 07/22/2021 in office. Latisha Self R.N. Ashvin Recio III, MD CV CARDIAC SERVICES PROCEDURES Final Result documented in this encounter Visit Diagnoses Diagnosis Paroxysmal atrial fibrillation (CMS/HCC) (HCC) Atrial fibrillation AV block, 2nd degree Other second degree atrioventricular block Apical variant hypertrophic cardiomyopathy (HCC) Automatic implantable cardiac defibrillator in situ documented in this encounter Care Teams Debt Counselor Relationship Specialty Start Date End Date Enmanuel Gan MD [address] [facility] [address] [address] [place] [address] PCP - General Internal Medicine 04/26/20 Tg Houston MD [address] [place] [address] Consulting Physician Cardiology 07/18/20 Guerrero Hunter DPT [address] [facility] [address] [facility] [place] [address] Physical Therapist Physical Therapy 11/08/20 Guerrero Weiner, CUSTOMER ACCOUNT COORDINATOR [address] [facility] [address] [place] [address] Industrial Economics Professor Physical Therapy 12/12/20 documented as of this encounter
--- OUTSIDE RECORDS SUMMARY | 2024-07-12 08:49 | XMS_ITS | Encounter Summary ---
Author Organization [facility] Address [address] [place] [address] Phone Care Team Providers Care Cargo Surveyor Name Role Phone Enmanuel Gan MD Primary Care Provider [phone] Tg Houston MD Unavailable [phone] Guerrero Hunter DPT Unavailable [phone] Guerrero Weiner FINAL ASSEMBLY INSPECTOR Unavailable [phone] Encounter Details Date Type Department Care Team (Late st Contact Info) Description 05/07/2021 8:00 AM CDT Office Visit [facility] Orthopaedic Surgery [address] [facility] Advanced Medicine 6th [place] [address] [place] [address] Jeremy Michelle MD [address] [facility] [address] [place] [address] Follow-up examination following surgery (Primary Dx) Social History Tobacco Use Types [...] attend chur ch or mosque services? 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 Sincerely, Dr. Jeremy Michelle & Cyndie Byers RN Please contact Dr. Miguel Angel Agee's Nurse if you have any questions. Mail disc to: [facility] Attn: Cyndie/ Dr. Michelle [address] [place] [address] documented in this encounter Progress Notes * Jeremy Michelle MD - 05/07/2021 8:00 AM CDT Images from the original note were not included. Established Patient Visit Interim History Macie Briseno returns to our office today for follow-up now 9 months out from L1 to for revisionposterior spinal instrumented fusion. She has done very well since the surgery and has been gettingaround and doing lots of things. She did have SI joint pain after the surgery and got 100% relief with bilateral SI joint injections. This lasted for several months. She says she is starting to maybe get some of the pain just barely coming back now but very minimal. Otherwise she is doing well. Shedid have a cardiac workup for what sounds like an arrhythmia and possible placement of pacemaker defibrillator. This is set to be discussed and possibly place next month it sounds like. Otherwise doing well and ambulating without difficulty. Physical Examination Intact throughout bilaterally upper lower extremities C5 through T1 and L2 through S1. No Carter'sno clonus. Normal reflexes. Ambulates easily without difficulty. Review of Plain Radiographs/Studies Plain films were reviewed by me. She has good overall alignment and position of the hardware. Her cephalad most screws appear to have some halo around them, which I certainly do not see much of previously. The plain films [address] 5 months ago do not really indicate this. The rest of the screws do not have any halo around them. Otherwise alignment and position of the hardware look fine. Impression/Diagnosis/Treatment Plan Pleasant 75-year-old female doing well overall. She had a revision fusion and is now instrumented and or fused from L1 to the sacrum. She has had ongoing SI joint pain that has gotten total relief from injection. Under imaging she has some healing at her top screws that we discussed today in clinic. Given that she does not have any pain appear and with her heart is of him not interested in doing too much at this time. She certainly knows it could be a problem moving forward in terms of things not fusing. That said they might have started to talk a little bit and gone on to fuse. We are going to see her back in 3 months for repeat radiographs and see how she is doing at that time. In the meantime she is going to get her cardiac stuff taking care of and possibly get another injection or maybe will discuss at that visit getting another injection. We will also discuss the top screws and whether she is fused or whether we need to do another CT scan. Jeremy Michelle MD PhD Sheriffs Officer of [employer] Flatbed DriverSheriffs Officer of Neurological Surgery [facility] in [place], [place] Oracle Reports Developer done by [employer]; therefore, variances and inaccuracies may occur. I reviewed the patient problem list pertinent to the visit today, but the entire patient problem list was not reviewed today. documented in this encounter Plan of Treatment Not on file documented as of this encounter Visit Diagnoses Diagnosis Follow-up examination following surgery- Primary documented in this encounter Discontinued Medications Medication Sig Discontinue Reason Start Date End Da te b complex vitamins tablet take 1 Tablet by Oral route every day Other 06/21/2013 05/07/2021 coenzyme Q10 (CO Q-10) 100 mg capsule take 1 Capsule by Oral route once Other 06/21/2013 05/07/2021 traMADoL (Ultram) 50 mg tabletIndications:Post-o perative pain Take 1 tablet (50 mg total) by mouth every 6 (six) hours as needed for pain Other 11/22/2020 05/07/2021 cyanocobalamin (Vitamin B-12) 100 mcg tabletIndications:Preven tion of Vitamin B12 Deficiency Take 100 mcg by mouth every morning Other 05/07/2021 cholecalciferol (VITAMIN D-3) 25 mcg (1,000 unit) tabletIndications:Vitami n D Deficiency Take 1,000 Units by mouth every morning Other 05/07/2021 ascorbic acid (ascorbic acid with indira hips) 500 mg tablet,chewableIndicatio ns:Vitamin C Deficiency Take 500 mg by mouth every morning Other 05/07/2021 documented as of this encounter Historical Medications * This list may reflect changes made after this encounter. Eliquis 5 mg tabletIndications: atrial fibrillation Take 1 tablet (5 mg total) by mouth 2 (two) times a day 04/23/2021 12/14/2023 added in this encounter Care Teams Cargo Surveyor Relationship Specialty Start Date End Date Enmanuel Gan MD [address] [place] [address] PCP - General Internal Medicine 04/26/20 Tg Houston MD [address] [facility] [address] [place] [address] Consulting Physician Cardiology 07/18/20 Guerrero Hunter DPT [address] [facility] [address] [facility] [place], [place] [id number] Physical Therapist Physical Therapy 11/08/20 Guerrero Weiner, [facility] [address] [place], [place] [id number] Aircraft Manager Physical Therapy 12/12/20 documented as of this encounter
--- OUTSIDE RECORDS SUMMARY | 2024-07-12 08:50 | XMS_ITS | Encounter Summary ---
Author Organization [facility] Address [address] [place] [address] Phone Care Team Providers Care Dental Officer Name Role Phone Enmanuel Gan MD Primary Care Provider [phone] Tg Houston MD Unavailable [phone] Guerrero Hunter DPT Unavailable [phone] Guerrero Weiner PTA Unavailable [phone] Reason for Visit * Reason Comments PT Treatment * Consultation (Routine) - Closed Specialty Diagnoses / Procedures Referred By Contac t Referred To Contact Physical Therapy Diagnoses Post-operative pain S/P spinal fusion Jeremy Michelle MD [address] [facility] [place] [facility] [address] [place] [address] Phone: tel: fax: [facility] (All Locations) Referral ID Status Reason Start Date Expiration Date V isits Requested Visits Authorized [id number] Closed Specialty Services Required 11/02/2020 11/02/2021 24 24 Encounter Details Date Type Department Care Team (Late st Contact Info) Description 02/19/2021 11:30 AM CDT Therapy [facility] Physical Therapy [address] [facility] 1st Floor [address] [place] [address] Guerrero Hunter DPRoshni [address] [facility] [address] [id number] Post-operative pain (Primary Dx); Chronic bilateral low back pain without sciatica; Hip pain; Chronic pain of right knee Social History Tobacco Use [...] often do you attend chur ch or spiritism services? 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 Post-operative pain 338.18 G89.18 2. Chronic bilateral low back pain without sciatica 724.2 M54.5 338.29 G89.29 3. Hip pain 719.45 M25.559 4. Chronic pain of right knee 719.46 M25.561 338.29 G89.29 COVID-19 Screening: Patient was pre-screened prior to entering clinic space and passed. Passed screening determines patient has no current fever, cough, SOB, loss of sense of taste or sense of smell,body aches, or sore throat. Patient has not been exposed to anyone suspected of having COVID-19 in the past 14 days. Subjective: Patient states that she is doing good. She has experienced relief s/p bilateral sacroiliac joint injection (02/15/2021) with a noticeable twinge of nerve pain in her lower back with rotatation type movements. 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 HEP THERAPEUTIC EXERCISE Parameters Comments VR x Supine low ab activation with unilateral hip flexion x sidelying hip abd/LR 1-3 second hold per rep 2 pillows between knees 2-3 folded towels under lumbar spine x Sitting knee extension Seated in a chair Folded towel supporting distal femur Cue to prevent femoral medial rotation x x Sit to/from stand Green TB above knee Red TB above ankles 2 pillow x Side stepping Green TB above knees x Hooklying shoulder flexion Red TB x Modified quad rock Throughout the day x Shoulder flexion wall slides For decompression Side step abdominal isometric Single pull Red TB Anti-Rotation x Straight arm pull down Red TB over door Neutral spine Standing hip hinge New x Shoulder row YTB Manual Therapy leukotape to SIJ X-tape 4 strips each THERAPEUTIC ACTIVITY Parameters Comments x Gait mechanics 2 hiking sticks Cues for gentle low ab activation x Patient education -Anatomy & kinesiology education -Tissue susceptible to movement and movement pattern correction (back, hip and LE mm) -Sitting: back support -standing posture: feet shldr width and slightly turned out, soft knees, decrease swayback -sleeping posture: 2 pillows between knees, folded towel under spine (SL only) -bed mobility -Home Exercise Program -Discussion on bending/lifting mechanics. Alignment when folding/doing laundry, dishes, general ADLs -SI belt Patient requests emails be sent to: [email or web address] Assessment: Pt presents with good technique with exercises/activities and required minimal cues to engage gluts, to engage abdominals, for proper direction of movement and for set up and technique to prevent compensatory movement, to prevent excessive lumbopelvic rotation, to prevent excessive lumbopelvic extension and to increase intended muscle recruitment. No increase in symptoms this visit. Reviewed and completed the items marked above. Plan: Continue PT per POC per patient tolerance. Total treatment time: 30 min Guerrero Hunter DPT documented in this encounter Plan of Treatment Not on file documented as of this encounter Visit Diagnoses Diagnosis Post-operative pain- Primary Other acute postoperative pain Chronic bilateral low back pain without sciatica Hip pain Pain in joint, pelvic region and thigh Chronic pain of right knee documented in this encounter Care Teams Dental Officer Relationship Specialty Start Date End Date Enmanuel Gan MD [address] [facility] [address] [place] [address] PCP - General Internal Medicine 04/26/20 Tg Houston MD [address] [place] [address] Consulting Physician Cardiology 07/18/20 Guerrero Hunter DPT [address] [facility] [address] [place] [address] Physical Therapist Physical Therapy 11/08/20 Guerrero Weiner, [facility] [address] [facility] [address] [place] [address] Composition Floor Setter Physical Therapy 12/12/20 documented as of this encounter
--- OUTSIDE RECORDS SUMMARY | 2024-07-12 08:50 | XMS_ITS | Encounter Summary ---
Author Organization [facility] Address [address] [facility] [address] [place] [address] Care Team Providers Care Enrollment Counselor Name Role Phone Enmanuel Gan MD Primary Care Provider Tg Houston MD Unavailable [phone] Guerrero Hunter DPT Unavailable [phone] Guerrero Weiner MANAGER SERVICES Unavailable [phone] Encounter Details Date Type Department Care Team (Late st Contact Info) Description 03/26/[address] [facility] Cardiology [address] [place] [address] Frankie Hawthorne MD [address] [facility] [address] [place], [place] [id number] Social History Tobacco Use Types Packs/Day Years [...] 07/30/2020 How often do you attend [facility] or sikh services? Never 07/30/2020 Do you [...] on file Legal Sex Female 9:09 PM [employer] Gender Identity Not on file Sexual Orientation Lesbian 05/24/2019 9: 06 AM CDT documented as of this encounter Plan of Treatment Not on file documented as of this encounter Procedures Procedure Name Priority Date/Time Associated Diagnosis Comments CARDIOLOGY DOCUMENT SCAN Routine 03/26/2021 documented in this encounter Results * SCAN - CARDIOLOGY (03/26/2021) Anatomical Region Laterality Modality Other Frankie Hawthorne MD CV CARDIAC SERVICES PROC EDURES Final Result documented in this encounter Visit Diagnoses Not on filedocumented in this encounter Care Teams Enrollment Counselor Relationship Specialty Start Date End Date Enmanuel Gan MD [address] [facility] [address] [place] [id number] PCP - General Internal Medicine 04/26/20 Tg Houston MD [address] [place] [address] Consulting Physician Cardiology 07/18/20 Guerrero Hunter DPT [address] [facility] [address] [facility] [place] [address] Physical Therapist Physical Therapy 11/08/20 Guerrero Weiner, MANAGER SERVICES [id number] [place] [address] Automotive Salesperson Physical Therapy 12/12/20 documented as of this encounter
--- OUTSIDE RECORDS SUMMARY | 2024-07-12 08:50 | XMS_ITS | Encounter Summary ---
Author Organization [facility] Address [address] [place] [address] Care Team Providers Care Repairer Resistance Welding Machines Name Role Phone Enmanuel Gan MD Primary Care Provider [phone] Tg Houston MD Unavailable [phone] Guerrero Hunter DPT Unavailable [phone] Guerrero Weiner BEATER HEAD Unavailable [phone] Stephen Barth MD Unavailable [phone] Karlie Hernandez RN Unavailable [phone] Encounter Details Date Type Department Care Team (Late st Contact Info) Description 04/09/2021 Telephone [facility] - Imaging [address] [place] [address] Transcribed Order, Provider Social History Tobacco Use Types Packs/Day [...] How often do you attend chur or evangelical services? 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 Gabriela Lu, MEDINA Patients who received care at a healthcare facility outside of the [place] will be placed in Contact Precautions until infection or colonization with specific highly resistant bacteria can be ruled out. Infection Prevention will arrange screening. Please contact Infection Prevention. 01/06/2024 01/06/2024 01/06/2024 5:32 PM C DT documented as of this encounter Care Teams Repairer Resistance Welding Machines Relationship Specialty Start Date End Date Enmanuel Gan MD [address] [place] [address] PCP - General Internal Medicine 04/26/20 Tg Houston MD [address] [place] [address] Consulting Physician Cardiology 07/18/20 Guerrero Hunter DPT [address] [facility] [address] [place] [address] Physical Therapist Physical Therapy 11/08/20 Guerrero Weiner, [facility] [address] [facility] [address] [place] [address] Cable Machine Operator Physical Therapy 12/12/20 Stephen Barth MD [address] [place] [address] Referring Physician Transplant 10/19/23 Karlie Hernandez, MEDINA [address] [facility] [address] [place], [place] [id number] SHOP Outpatient Decision Support Analyst 12/15/23 01/12/24 documented as of this encounter
--- OUTSIDE RECORDS SUMMARY | 2024-07-12 08:50 | XMS_ITS | Encounter Summary ---
Author Organization [facility] Address [address] [facility] [address] [place] [address] Care Team Providers Care Inspector Open Die Name Role Phone Enmanuel Gan MD Primary Care Provider [phone] Tg Houston MD Unavailable [phone] Guerrero Hunter DPT Unavailable [phone] Guerrero Weiner MAILROOM COURIER Unavailable [phone] Encounter Details Date Type Department Care Team (Late st Contact Info) Description 03/26/[address] [facility] Group Cardiology [address] [place] [address] Edgardo Ramos MD [address] [id number] Social History Tobacco Use Types Packs/Day Years [...] How often do you attend [facility] or sikh services? 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 Gender Identity Not on file Sexual Orientation Lesbian 05/24/2019 9: 06 AM CDT documented as of this encounter Plan of Treatment Not on file documented as of this encounter Procedures Procedure Name Priority Date/Time Associated Diagnosis Comments CARDIOLOGY DOCUMENT SCAN Routine 03/26/2021 documented in this encounter Results * SCAN - CARDIOLOGY (03/26/2021) Anatomical Region Laterality Modality Other us Edgardo Ramos MD CV CARDIAC SERVICES PROCEDURES F inal Result documented in this encounter Visit Diagnoses Not on filedocumented in this encounter Care Teams Inspector Open Die Relationship Specialty Start Date End Date Enmanuel Gan MD [address] [facility] [address] [place] [address] PCP - General Internal Medicine 04/26/20 Tg Houston MD [address] [place] [address] Consulting Physician Cardiology 07/18/20 Guerrero Hunter DPT [address] [facility] [address] [facility] [place] [address] Physical Therapist Physical Therapy 11/08/20 Guerrero Weiner, MAILROOM COURIER [address] [facility] [address] [place] [address] Machine Etcher Physical Therapy 12/12/20 documented as of this encounter
--- OUTSIDE RECORDS SUMMARY | 2024-07-12 08:50 | XMS_ITS | Encounter Summary ---
Author Organization [facility] Address [address] [place] [address] Care Team Providers Care Laboratory Animal Care Veterinarian Name Role Phone Enmanuel Gan MD Primary Care Provider [phone] Tg Houston MD Unavailable [phone] Guerrero Hunter DPT Unavailable [phone] Guerrero Weiner PETROPHYSICIST Unavailable [phone] Reason for Referral * MRI/CAT/PET Scan (Routine) - Closed Specialty Diagnoses / Procedures Referred By Contac t Referred To Contact Radiology Diagnoses Cardiac hypertrophy Pre-op examination Procedures MRI Cardiac M&F W WO Contrast Tg Houston MD [address] [facility] [address] [place] [address] Phone: tel: fax: [facility] [address] [place] [address] Referral ID Status Reason Start Date Expiration Date Visits Re quested Visits Authorized [id number] Closed 04/03/2021 05/03/2022 1 1 Reason for Visit * MRI/CAT/PET Scan (Routine) - Closed Specialty Diagnoses / Procedures Referred By Contac t Referred To Contact Radiology Diagnoses Cardiac hypertrophy Pre-op examination Procedures MRI Cardiac M&F W WO Contrast Tg Houston MD [address] [facility] [address] [place] [address] Phone: tel: fax: [facility] [address] [place] [address] Referral ID Status Reason Start Date Expiration Date Visits Re quested Visits Authorized [id number] Closed 04/03/2021 05/03/2022 1 1 Encounter Details Date Type Department Care Team (Latest Contact Info) Description 04/10/2021 6:49 AM CDT - 04/10/2021 11:59 PM CDT Hospital Encounter [facility] - [facility] [address] [place] [address] Cardiac hypertrophy; Pre-op examination Discharge Disposition: Discharge to home or self [...] on file 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[employer]IT[employer] Gender Identity Not on file Sexual Orientation Lesbian 05/24/2019 9: 06 AM CDT documented as of this encounter Medications at Time of Discharge atorvastatin (LIPITOR) 20 mg tabletIndication s:hyperlipidemia Take 1 tablet (20 mg total) by mouth nightly 07/29/2018 ALPRAZolam (XANAX) 0.25 mg tablet Take 1 tablet (0.25 mg total) by mouth nightly as needed (dizziness) 30 tablet 04/10/2021 2 ascorbic acid (ascorbic acid with indira hips) 500 mg tablet,chewableI ndications:Vitam in C Deficiency Take 500 mg by mouth every morning 1 b complex vitamins tablet take 1 Tablet by Oral route every day 0 0 06/21/2013 1 calcium acetate,phosphat bind, (PHOSLO) 667 mg capsuleIndicatio ns:supplement Take 2 capsules (1,334 mg total) by mouth every morning 4 cholecalciferol (VITAMIN D-3) 25 mcg (1,000 unit) tabletIndication s:Vitamin D Deficiency Take 1,000 Units by mouth every morning 1 coenzyme Q10 (CO Q-10) 100 mg capsule take 1 Capsule by Oral route once 0 0 06/21/2013 1 cyanocobalamin (Vitamin B-12) 100 mcg tabletIndication s:Prevention of Vitamin B12 Deficiency Take 100 mcg by mouth every morning [address] (CYMBALTA) 30 mg capsuleIndicatio ns:Anxiety with Depression Take 3 capsules (90 mg total) by mouth every morning 12/21/[address] (CYMBALTA) 60 mg capsule Take 60 mg by mouth daily 10/31/2020 1 fexofenadine-pse udoephedrine (THELMA-D) 60-120 mg per 12 hr tabletIndication s:Allergic Rhinitis Take 1 tablet by mouth 2 (two) times a day as needed for allergies 4 fluticasone (FLONASE) 50 mcg/actuation nasal spray inhale 1 spray (50MCG) by intranasal route every day in each nostril 0 06/15/2012 4 magnesium citrate 100 mg tabletIndication s:hypomagnesemia Take 1 tablet by mouth every morning 4 montelukast (SINGULAIR) 10 mg tabletIndication s:Seasonal Allergic Rhinitis Take 10 mg by mouth nightly 10/25/2018 1 potassium chloride ER 20 mEq CR tabletIndication s:supplement Take 2 tablets (40 mEq total) by mouth every morning 06/29/2020 4 senna-docusate (PERICOLACE) 8.6-50 mgIndications:co nstipation Take 2 tablets by mouth 2 (two) times a day for 14 days 56 tablet 07/29/2020 4 sucralfate (CARAFATE) 1 gram tablet Take 2 tablets (2 g total) by mouth 2 (two) times a day as needed 4 traMADoL (Ultram) 50 mg tabletIndication s:Post-operative pain Take 1 tablet (50 mg total) by mouth every 6 (six) hours as needed for pain 42 tablet 11/22/2020 1 triamterene-hydr oCHLOROthiazide 37.5-25 mg per capsule TAKE ONE CAPSULE BY MOUTH ONCE DAILY 90 capsule 3 11/17/2019 3 documented as of this encounter Discharge Disposition Disposition Code Departure Means Destination Discharge to home or self care documented in this encounter Miscellaneous Notes * Result Encounter Note - Tg Houston MD - 04/10/2021 7:15 AM CDT 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 There is an incidental finding of a left kidney cyst (will defer to Dr. Gan re this). Based on this I believe she will require an ICD rather than just a pacemaker. Will coordinate with Dr. Recio. documented in this encounter Plan of Treatment Not on file documented as of this encounter Procedures Procedure Name Priority Date/Time Associated Diagnosis Comments MRI CARDIAC M&FUNC W WO CONTRAST Schedule Routine, Read Routine (OP Routine) 04/10/2021 9:24 AM CDT Cardiac hypertrophy Pre-op examination documented in this encounter Results * MRI Cardiac M&F W WO Contrast (04/10/2021 9:24 AM CDT) Anatomical Region Laterality Modality Body N/A Magnetic Resonan ce 04/10/2021 10:1 9 AM CDT Narrative 04/10/2021 10:19 AM CDT Cardiac MRI with and without contrast and velocity flow imaging was performed on a 1.5 T scanner to evaluate myocardial morphology, function and viability in a patient with a history of possible apical hypertrophic cardiomyopathy. 1. The left ventricle is normal in cavity size with generally normal wall thickness except for the presence of prominent asymmetric apical hypertrophy. Maximum transmural dimension of 1.5 cm. Global systolic function is normal. The quantitated LV ejection fraction is 61%. There are no regional wall motion abnormalities. There is no LVOT flow obstruction, peak LVOT flow < 1.5 m/sec. LVEDV: 98 ml LVESV: 38 ml 2. The right ventricle is small in cavity size with normal wall thickness and systolic function. There seems to be some RVOT flow acceleration but it is not well characterized on this study. 3. The left atrium is borderline mildly enlarged. The right atrium is normal in size. There is very prominent lipomatous hypertrophy of the interatrial septum. 4. There is mild mitral regurgitation. There is no other significant valvular disease seen. 5. Delayed enhancement imaging demonstrates no evidence of myocardial infarction, scar or infiltrative disease. 6. There is no intracardiac thrombus. 7. Incidental note is made of a cyst-like lesion in the left kidney. There are no clear high risk features seen although these findings are not examined in a dedicated fashion within this study. Dedicated imaging recommended if clinically indicated. SUMMARY: Normal biventricular systolic function. LV EF of 61%. No myocardial damage. Asymmetric LV apical hypertrophy is present consistent with the diagnosis of apical hypertrophic cardiomyopathy. Electronically signed by: Negro Arrieta M.D. Procedure Note Negro Arrieta MD - 04/10/2021 Cardiac MRI with and without contrast and velocity flow imaging was performed on a 1.5 T scanner to evaluate myocardial morphology, function and viability in a patient with a history of possible apical hypertrophic cardiomyopathy. 1. The left ventricle is normal in cavity size with generally normal wall thickness except for the presence of prominent asymmetric apical hypertrophy. Maximum transmural dimension of 1.5 cm. Global systolic function is normal. The quantitated LV ejection fraction is 61%. There are no regional wall motion abnormalities. There is no LVOT flow obstruction, peak LVOT flow < 1.5 m/sec. LVEDV: 98 ml LVESV: 38 ml 2. The right ventricle is small in cavity size with normal wall thickness and systolic function. There seems to be some RVOT flow acceleration but it is not well characterized on this study. 3. The left atrium is borderline mildly enlarged. The right atrium is normal in size. There is very prominent lipomatous hypertrophy of the interatrial septum. 4. There is mild mitral regurgitation. There is no other significant valvular disease seen. 5. Delayed enhancement imaging demonstrates no evidence of myocardial infarction, scar or infiltrative disease. 6. There is no intracardiac thrombus. 7. Incidental note is made of a cyst-like lesion in the left kidney. There are no clear high risk features seen although these findings are not examined in a dedicated fashion within this study. Dedicated imaging recommended if clinically indicated. SUMMARY: Normal biventricular systolic function. LV EF of 61%. No myocardial damage. Asymmetric LV apical hypertrophy is present consistent with the diagnosis of apical hypertrophic cardiomyopathy. Electronically signed by: Negro Arrieta M.D. Tg Houston MD IMG MRI PROCEDURES Final Re sult documented in this encounter Visit Diagnoses Diagnosis Cardiac hypertrophy Cardiomegaly Pre-op examination documented in this encounter Administered Medications Inactive Administered Medications - up to 3 most recent administrations Medication Order MAR Action Action Date Dose Rate Site gadobenate dimeglumine (MULTIHANCE) injection 12 mL 12 mL, intravenous, Once in imaging, contrast, Starting on Thu04/10/21 at 0944, For 1 dose Contrast Given 04/10/2021 9:44 AM CDT 12 mL sodium chloride 0.9% flush 125 mL 125 mL, intravenous, Once in imaging, line care, Starting on Thu04/10/21 at 0944, For 1 dose Given 04/10/2021 9:45 AM CDT 25 mL documented in this encounter Care Teams Laboratory Animal Care Veterinarian Relationship Specialty Start Date End Date Enmanuel Gan MD [address] [place] [address] PCP - General Internal Medicine 04/26/20 Tg Houston MD [address] [facility] [address] [address] [place] [address] Consulting Physician Cardiology 07/18/20 Guerrero Hunter DPT [address] [facility] [address] [facility] [place], [place] [id number] Physical Therapist Physical Therapy 11/08/20 Guerrero Weiner PTA [address] [facility] [address] [place] [address] Communications Designer Physical Therapy 12/12/20 documented as of this encounter
--- OUTSIDE RECORDS SUMMARY | 2024-07-12 08:50 | XMS_ITS | Encounter Summary ---
Author Organization [facility] Address [address] [facility] [address] [place] [address] Care Team Providers Care Armed Guard Name Role Phone Enmanuel Gan MD Primary Care Provider [phone] Tg Houston MD Unavailable [phone] Guerrero Hunter DPT Unavailable [phone] Guerrero Weiner ENERGY CONSULTANT Unavailable [phone] Reason for Referral * MRI/CAT/PET Scan (Routine) - Closed Specialty Diagnoses / Procedures Referred By Gigi t Referred To Contact Radiology Diagnoses Cardiac hypertrophy Pre-op examination Procedures MRI Cardiac M&F W WO Contrast Tg Houston MD [address] [facility] [address] [place] [address] Phone: tel: fax: [place] [id number] [place] [address] Referral ID Status Reason Start Date Expiration Date Visits Re quested Visits Authorized [id number] Closed 04/03/2021 05/03/2022 1 1 Encounter Details Date Type Department Care Team (Late st Contact Info) Description 04/02/2021 Telephone [facility] Cardiology [address] [facility] [address] [place] [address] Tg Houston MD [address] [place] [address] Social History Tobacco Use Types Packs/Day Years [...] file 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 No caffeine that AM. Radiology aware of her Cochlear [employer] Model # 632/modioler array implant. Device [id number] ( serial Number [id number]) In pt's epic chart under encounter dated 06/19/20. * Telephone Encounter - Tg Houston MD - 04/03/2021 8:23 AM CDT I checked with Dr. Arrieta. Can do at [facility] IF implants are MRI conditional (which he assumes they are if she has had an MRI at [place]). He said techs would need to dennis down the safety data. Please check with MRI techs at [facility]. * Telephone Encounter - Lea Holland RN - 04/02/2021 8:07 AM CDT Spoke with pt reviewing the ECHO results from the hospital per Dr. Robertson note. Pt will need additional testing (cardiac MRI) prior to her PPM implant. Pt agrees and will get it scheduled MELISSA. Pt has a Cochlear [employer] implant since . She tells me she has had MRI's in the past Usually have to be done at [facility]. Will forward to Dr. Houston * Telephone Encounter - Lea Holland RN - 04/02/2021 8:06 AM CDT ----- Message from Tg Houston MD sent at 03/29/2021 6:30 PM CDT ----- This patient was discharged from [facility] today. She had an echo prior to discharge which was read following discharge, and suggests apical hypertrophy, a thickening of the heart muscle particularly at the tip of the left ventricle, which can contribute to shortness of breath and requires sp ecific treatment. (Since this was read after her discharge, she does not yet know these results.) This condition could even affect what kind of pacemaker she gets. Therefore, prior to her pacemaker implantation I recommend (and Dr. Recio agrees) that she have a cardiac MRI, diagnosis apical hypertrophy. This should be done fairly soon as she still does need pacemaker implantation. documented in this encounter Plan of Treatment Not on file documented as of this encounter Results * MRI Cardiac M&F [...] in this encounter Visit Diagnoses Diagnosis Cardiac hypertrophy- Primary Cardiomegaly Pre-op examination Cardiac hypertrophy Cardiomegaly Pre-op examination documented in this encounter Care Teams Armed Guard Relationship Specialty Start Date End Date Enmanuel Gan MD [address] [place] [address] PCP - General Internal Medicine 04/26/20 Tg Houston MD [address] [facility] [address] [place] [address] Consulting Physician Cardiology 07/18/20 Guerrero Hunter DPT [address] [facility] [address] [facility] [place], [place] [id number] Physical Therapist Physical Therapy 11/08/20 Guerrero Weiner, ENERGY CONSULTANT [address] [facility] [address] [place], [place] [id number] Abalone Sheller Physical Therapy 12/12/20 documented as of this encounter
--- OUTSIDE RECORDS SUMMARY | 2024-07-12 08:50 | XMS_ITS | Encounter Summary ---
Author Organization [facility] Address [address] [place] [address] Phone Care Team Providers Care Consumer Insight Analyst Name Role Phone Enmanuel Gan MD Primary Care Provider [phone] Tg Houston MD Unavailable [phone] Guerrero Hunter DPT Unavailable [phone] Guerrero Weiner CONE WINDER Unavailable [phone] Reason for Visit * Consultation (Routine) - Closed Specialty Diagnoses / Procedures Referred By Gigi t Referred To Contact Otolaryngology Diagnoses Sensorineural hearing loss (SNHL) of both ears Enmanuel Gan MD [address] [facility] [address] [place] [address] Phone: tel: fax: [facility] (All Locations) Referral ID Status Reason Start Date Expiration Date V isits Requested Visits Authorized [id number] Closed Specialty Services Required 12/25/2020 01/24/2022 3 3 Encounter Details Date Type Department Care Team (Latest Contact Info) Description 01/16/2021 1:00 PM CDT Procedure visit [facility] Otolaryngology [address] [facility] [address] [place] [address] [place] [id number] Zee Garcia Au.D. [address] [place] [address] Sensorineural hearing loss, bilateral Social History Tobacco [...] attend chur ch or gnosticism services? 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 - 01/16/2021 1:00 PM CDT Diagnosis: Sensorineural hearing loss, bilateral Physician: Darshana Toth MD Services Provided: Evaluation of auditory function for surgically implanted device(s) - Post-op Evaluation following Cochlear Implantation (Time: 1:00-2:00 PM) Procedures: The patient attended the session alone. EVALUATION: ( ) pre-op scoring Client Oriented Scale Of Improvement (COSI) Phase II: Assessment of improvement and final listeningability. Specific Needs Degree of Change Final Ability 1. Understanding conversation in a small group (about 4 people, in quiet) Better 50% 2. Less repetition when listening, not having to ask someone to repeat what they said Better 20% less 3. Reduce sudden loud noises - sounds I'm not expecting Slightly better 60% of the time 4. Be able to focus on a specific speaker in a theatre setting (live theatre) NA -previously used telecoil with ear loop 5. Be able to focus on a specific speaker at a seminar NA -movies 6. Watch TV without turning on the high volume Much better Sunita wants it up now. Conversational satisfaction ratin pretty satisfied (3 moderately satisfied) Hearing Handicap inventory for Adults (HHIA): The purpose of this scale is to identify the problemsthe hearing loss may be causing the patient at the time of administration. Determine the presence of perceived emotional and situational hearing handicaps. Emotional questions score: 16 No Handicap (34 Mild to moderate) Situational questions score: 12 No Handicap (28 Mild to moderate) Total Score: 28 Mild to Moderate Handicap (62 Significant Handicap) [facility] Sentence Testing: Aided, live voice, auditory only condition, practice items provided LE COUCH- RE plugged List 12 Score: 66% (30%) Binaural List 1 Score: 98% (94%) [employer] Sentence Testing TELEPHONE: Aided, live voice, practice items provided (RE Unaided (normal listening condition) List 14 Score: 69%) (LE Unaided List 15 Score: 26%) 01/16/21- Speaker Phone (cell) List 6 Score: 62% *Patient loaned a Commissioner Phone Clip - Device was paired to new cell phone and Kanso 2. Phone call placed to the Weather Line to test and patient reported understanding through Kanso 2 only. She will take and try out. (NOTE: The clip has broken off of the HAGAN phone clip.) Significant Other Assessment of Communication: Sharon took questionnaire home for Sunita to fill out. She will return it to the clinic. IMPRESSION/PLAN: Continue AT exercises daily to improve CI performance - discussed options for continued practice In low background noise Over the telephone Continue to use communication strategies and wireless accessories for better speech understanding and reduced listening effort Discharged from AR at this time AR as needed - she can schedule through [facility] documented in this encounter Plan of Treatment Not on file documented as of this encounter Visit Diagnoses Diagnosis Sensorineural hearing loss, bilateral documented in this encounter Orders Audiology Count Last Ordered Date First Orde red Date EVALUATION, COCHLEAR IMPLANT PROGRAMMING AND AUDITORY REHABILITATION 1 01/11/2021 documented in this encounter Care Teams Consumer Insight Analyst Relationship Specialty Start Date End Date Enmanuel Gan MD [address] [place] [address] PCP - General Internal Medicine 04/26/20 Tg Houston MD [address] [facility] [address] [place] [address] Consulting Physician Cardiology 07/18/20 Guerrero Hunter DPT [address] [facility] [address] [place] [address] Physical Therapist Physical Therapy 11/08/20 Guerrero Weiner, CONE WINDER [address] [facility] [address] [place] [address] Medical Office Supervisor Physical Therapy 12/12/20 documented as of this encounter
--- OUTSIDE RECORDS SUMMARY | 2024-07-12 08:50 | XMS_ITS | Encounter Summary ---
Author Organization [facility] Address [address] [place] [address] Phone Care Team Providers Care Varnish Filterer Name Role Phone Enmanuel Gan MD Primary Care Provider [phone] Tg Houston MD Unavailable [phone] Guerrero Hunter DPT Unavailable [phone] Guerrero Weiner MARBLE INSTALLATION HELPER Unavailable [phone] Reason for Referral * Diagnostic Imaging (Routine) - Closed Specialty Diagnoses / Procedures Referred By Contac t Referred To Contact Radiology Diagnoses Bilateral leg pain Procedures IR Injection SI Joint Bilateral with Guidance Jeremy Michelle MD [address] [facility] [place] [address] Phone: tel: fax: [facility] [address] [place] [address] Referral ID Status Reason Start Date Expiration Date Visits Re quested Visits Authorized [id number] Closed 01/29/2021 02/28/2022 1 1 Encounter Details Date Type Department Care Team (Late st Contact Info) Description 01/29/2021 9:30 AM CDT Office Visit [facility] Orthopaedic Surgery [address] [facility] 12th [place] [address] [place] [address] Jeremy Michelle MD [address] [facility] [place] [address] Follow-up examination following surgery (Primary Dx); Bilateral leg pain Social History Tobacco Use Types Packs/Day [...] often do you attend chur ch or lutheran services? 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 Sincerely, Dr. Jeremy Michelle & Cyndie Byers RN Please contact Dr. Miguel Angel Agee's Nurse if you have any questions. Mail disc to: Orthopedics Attn: Cyndie/ Dr. Michelle [address] [place] [address] documented in this encounter Progress Notes * Jeremy Micehlle MD - 01/29/2021 9:30 AM CDT Images from the original note were not included. 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 We decompressed and extended her to L1. Since her last visit in October she had a CRP, ESR, and CBC drawn that were within normal limits. Shestates that she has some pain in her lower back, particularly along her paraspinal muscles. She also describes bilateral abductor muscle pain as well as feelings of decreased sensation and itchiness.She is working with physical therapy and states that she feels like she has been plateauing. She sta giselle that she takes Tylenol for pain but does not provide much relief. She ambulate without assist. Her biggest complaint is her buttock pain that almost sounds like SI pain. Physical Examination On exam her incision is well healed without erythema or fluctuance. She has full 5/5 strength throughout as well as sensation intact to light touch throughout except bilateral L3. Her reflexes are symmetric. She has no Carter's or clonus. She has a positive Shira test as well as a positive figure 4 test for SI joint pain Review of Plain Radiographs/Studies Her instrumentation from L1-L4 remains intact and there are signs of early fusion. Her lumbar lordosis angle measured about 28 degrees. Her SVA remains about 5. Alignment remains stable from prior xrays on 11/06. On review of her CT she has gas in her bilateral SI joints. Impression/Diagnosis/Treatment Plan Patient is a 75-year-old female who presents with what seems to be bilateral SI joint pain after revision of posterior spinal fusion L1-L4. Based upon her symptoms and review of a prior CT scan, her pain is possibly originating from her SI joints. There is gas seen in her joints indicative of motion and she has some tenderness on exam. Her pain may also be muscular in nature but it is unclear at this point. I recommended we order bilateral SI joint injections as a diagnostic tool/treatment. I instructed her to follow-up with our office and inform us of her symptoms post-injection. I would like to see her back in about 2 months (9 months post-op). The patient is in agreement with the plan and all of her questions were answered at today's clinic visit. Given the 1st hour after the injection she gets significant relief then I would propose we anchor her fusion into her pelvis. She has had fusion now from L1 down to S1. We revised it up 1 level to S1but now I fear she is developing worsening SI joint pain which makes sense given her long construct. No complications with been done but I do think she will likely benefit in the future from and bring her to her pelvis. If that is the case we do need at look carefully at her scoliosis films and decide whether we want to revise her prior fusion. She is not in ideal place for her upright posture asshe has been fused flat previously. Jeremy Michelle MD PhD Credit Card Specialist of Orthopaedic Academic Support CoordinatorCredit Card Specialist of Neurological Surgery [facility] [place] Registered Dental Assistant Rda done by [employer]; therefore, variances and inaccuracies may occur. I reviewed the patient problem list pertinent to the visit today, but the entire patient problem list was not reviewed today. documented in this encounter Plan of Treatment Not on file documented as of this encounter Results * IR Injection SI Joint Bilateral with Guidance (02/15/2021 2:54 PM CDT) Narrative [facility] - 02/15/2021 2:54 PM CDT The images from this study are not interpreted by Radiology. ??Please refer to the physician's procedure / OR operative note. us Jeremy Michelle MD IMG IR PROCEDURES Fi nal Result [facility] documented in this encounter Visit Diagnoses Diagnosis Follow-up examination following surgery- Primary Bilateral leg pain Pain in soft tissues of limb Sacroiliac joint pain- Primary Disorders of sacrum documented in this encounter Care Teams Varnish Filterer Relationship Specialty Start Date End Date Enmanuel Gan MD [address] INTERNAL MEDICINE [place], [place] [id number] PCP - General Internal Medicine 04/26/20 Tg Houston MD [address] [place] [address] Consulting Physician Cardiology 07/18/20 Guerrero Hunter DPT [address] [facility] [address] [place] [address] Physical Therapist Physical Therapy 11/08/20 Guerrero Weiner, MARBLE INSTALLATION HELPER [address] [facility] [address] [place] [address] Track Grinder Operator Physical Therapy 12/12/20 documented as of this encounter
--- OUTSIDE RECORDS SUMMARY | 2024-07-12 08:50 | XMS_ITS | Encounter Summary ---
Author Organization [facility] Address [address] [place] [address] Phone Care Team Providers Care Materials Development Engineer Name Role Phone Enmanuel Gan MD Primary Care Provider [phone] Tg Houston MD Unavailable [phone] Guerrero Hunter DPT Unavailable [phone] Guerrero Weiner PTA Unavailable [phone] Reason for Visit * Reason Comments PT Progress Note * Consultation (Routine) - Closed Specialty Diagnoses / Procedures Referred By Contac t Referred To Contact Physical Therapy Diagnoses Post-operative pain S/P spinal fusion Jeremy Michelle MD [address] [facility] [address] [place] [address] Phone: tel: fax: [facility] (All Locations) Referral ID Status Reason Start Date Expiration Date V isits Requested Visits Authorized [id number] Closed Specialty Services Required 11/02/2020 11/02/2021 24 24 Encounter Details Date Type Department Care Team (Late st Contact Info) Description 01/24/2021 2:45 PM CDT Therapy [facility] Physical Therapy [address] [facility] 1st Floor [address] [place] [id number] Guerrero Hunter DPRoshni [address] [facility] [address] [facility] [place] [address] Post-operative pain (Primary Dx); Chronic bilateral low back pain without sciatica Social History Tobacco Use Types Packs/Day Years [...] often do you attend chur ch or holiness services? 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 Post-operative pain 338.18 G89.18 2. Chronic bilateral low back pain without sciatica 724.2 M54.5 338.29 G89.29 COVID-19 Screening: Patient was pre-screened prior to entering clinic space and passed. Passed screening determines patient has no current fever, cough, SOB, loss of sense of taste or sense of smell,body aches, or sore throat. Patient has not been exposed to anyone suspected of having COVID-19 in the past 14 days. Subjective: Patient states that she continues to experience pain in her low back that she describesas a tightening as she performs ADLs. 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 HEP THERAPEUTIC EXERCISE Parameters Comments x Supine low ab activation with unilateral hip flexion x sidelying hip abd/LR 1-3 second hold per rep 2 pillows between knees 2-3 folded towels under lumbar spine x Sitting knee extension Seated in a chair Folded towel supporting distal femur Cue to prevent femoral medial rotation VR x Sit to/from stand Green TB above knee 1 pillow VR x Side stepping Green TB above knees x Hooklying shoulder flexion Red TB x Modified quad rock Throughout the day x Shoulder flexion wall slides For decompression Side step abdominal isometric Single pull Red TB Anti-Rotation Straight arm pull down Red TB over door Neutral spine New Standing hip hinge THERAPEUTIC ACTIVITY Parameters Comments x Gait mechanics [...] Alignment when folding/doing laundry, dishes, general ADLs Patient requests emails be sent to: .Primary Data Assessment: Pt presents with fair technique with exercises/activities and required moderate cues to engage gluts, to engage abdominals, for proper direction of movement and for set up and technique to prevent compensatory movement, to prevent excessive lumbopelvic rotation, to prevent excessive lumbopelvic extension and to increase intended muscle recruitment. Mild increase in symptoms this visit that are alleviated with rest. Patient continues to experience pain associated with over-use/activation of the lumbar extensors throughout functional mobility. Discussed with patient the importance of increased awareness of body position and to utilize rest breaks incrementally throughout the day. Patient may benefit from a discussion and deeper understanding of the response of muscles to exercise/use as shemay be experiencing this pain due to muscle fatigue/soreness. Reviewed and completed the items marked above. She would benefit from continued physical therapy for further education regarding functional mobility and general strengthening of lower abdominals and gluteals. Goals: (re-assessed 01/24/2021) Short Term Goals: (4 weeks) Goal Description New Ongoing Partially Met Met Deferred The patient will decrease c/o pain with functional activities to 7-8/10 at worst. x The patient will demonstrate improved static posture in standing. x The patient will demonstrate improved movement pattern with sit to/from stand. X (req'd multiple cues) The patient will be independent with strategies designed to help manage symptoms with the followingactivities: ADLs x The patient will demonstrate HEP with minimal guidance x Softball Core Molder Goals: (8 weeks) Goal Description New Ongoing Partially Met Met Deferred The patient will decrease c/o pain with functional activities to 6-7/10 at worst. x The patient will perform the following functional activities with little to no pain: standing for up to 20 minutes and ambulation up to 25 minutes. x The patient will be independent with strategies designed to help manage symptoms with the followingactivities: rec activities as desired. x The patient be independent with final HEP needed for sustained correction of movement impairments. x Plan: Continue PT per POC per patient tolerance. Total treatment time: 40 min Guerrero Hunter DPT documented in this encounter Plan of Treatment Not on file documented as of this encounter Visit Diagnoses Diagnosis Post-operative pain- Primary Other acute postoperative pain Chronic bilateral low back pain without sciatica documented in this encounter Care Teams Materials Development Engineer Relationship Specialty Start Date End Date Enmanuel Gan MD [address] [facility] [address] INTERNAL MEDICINE [place], [place] [id number] PCP - General Internal Medicine 04/26/20 Tg Houston MD [address] [facility] [address] [place] [address] Consulting Physician Cardiology 07/18/20 Guerrero Hunter DPT [address] [facility] [address] [id number] Physical Therapist Physical Therapy 11/08/20 Guerrero Weiner PTA [address] [place] [address] [place] Machine Operator Physical Therapy 12/12/20 documented as of this encounter
--- OUTSIDE RECORDS SUMMARY | 2024-07-12 08:50 | XMS_ITS | Encounter Summary ---
Author Organization [facility] Address [address] [place] [address] Care Team Providers Care Rail Bonder Name Role Phone Enmanuel Gan MD Primary Care Provider [phone] Tg Houston MD Unavailable [phone] Guerrero Hunter DPT Unavailable [phone] Guerrero Weiner CHUMMER Unavailable [phone] Reason for Referral * Diagnostic Imaging (Routine) - Closed Specialty Diagnoses / Procedures Referred By Contac t Referred To Contact Radiology Diagnoses Bilateral leg pain Procedures IR Injection SI Joint Bilateral with Guidance Jeremy Michelle MD [address] [place] [address] Phone: tel: fax: [facility] [address] [place] [address] Referral ID Status Reason Start Date Expiration Date Visits Re quested Visits Authorized [id number] Closed 01/29/2021 02/28/2022 1 1 Reason for Visit * Diagnostic Imaging (Routine) - Closed Specialty Diagnoses / Procedures Referred By Contac t Referred To Contact Radiology Diagnoses Bilateral leg pain Procedures IR Injection SI Joint Bilateral with Guidance Jeremy Michelle MD [address] [place] [address] Phone: tel: fax: [facility] [address] [facility] [place] [address] Referral ID Status Reason Start Date Expiration Date Visits Re quested Visits Authorized [id number] Closed 01/29/2021 02/28/2022 1 1 Encounter Details Date Type Department Care Team (Latest Contact Info) Description 02/15/2021 1:49 PM CDT - 02/15/2021 11:59 PM CDT Hospital Encounter [facility] [address] [place] [address] Jeremy Michelle MD [address] [facility] [address] [place] [address] DebKelsey [address] [place] [address] Sacroiliac joint pain (Primary Dx) Discharge Disposition: Discharge to home [...] on file 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 Gender Identity Not on file Sexual Orientation Lesbian 05/24/2019 9: 06 AM CDT documented as of this encounter Last Filed Vital Signs Vital Sign Reading Time Taken Comments Blood Pressure 133/63 02/15/2021 3:00 PM CDT Pulse 66 02/15/2021 3:00 PM CDT Temperature - - Respiratory Rate 16 02/15/2021 3:00 PM CDT Oxygen Saturation 96% 02/15/2021 3:00 PM CDT Inhaled Oxygen Concentration - - Weight - - Height - - Body Mass Index - - documented in this encounter Medications at Time of Discharge atorvastatin (LIPITOR) 20 mg tabletIndication s:hyperlipidemia Take 1 tablet (20 mg total) by mouth nightly 07/29/2018 ALPRAZolam (XANAX) 0.25 mg tabletIndication s:ears Take 2 tablets (0.5 mg total) by mouth nightly as needed (dizziness) 60 tablet 01/07/2021 1 ascorbic acid (ascorbic acid with indira hips) 500 mg tablet,chewableI ndications:Vitam in C Deficiency Take 500 mg by mouth every morning 1 b complex vitamins tablet take 1 Tablet by Oral route every day 0 0 06/21/2013 1 baclofen (LIORESAL) 10 mg tabletIndication s:Post-operative pain Take 1 tablet (10 mg total) by mouth 2 (two) times a day 90 tablet 1 10/17/2020 1 calcium acetate,phosphat bind, (PHOSLO) 667 mg [...] 100 mcg by mouth every morning 1 diltiazem (TIAZAC) 180 mg 24 hr capsule Take 1 capsule (180 mg total) by mouth daily 90 capsule [address] (CYMBALTA) 30 mg capsuleIndicatio ns:Anxiety with Depression Take 3 capsules (90 mg total) by mouth every morning 12/21/[address] (CYMBALTA) 60 mg capsule Take 60 mg by mouth daily 10/31/2020 1 Eliquis 5 mg tablet Take 5 mg by mouth every 12 (twelve) hours 08/28/2020 1 flecainide (TAMBOCOR) 100 mg tablet Take 100 mg by mouth 2 (two) times a day 06/29/2020 1 fluticasone (FLONASE) 50 mcg/actuation nasal spray inhale 1 spray (50MCG) by intranasal route every day in each nostril 0 06/15/2012 4 magnesium citrate 100 mg tabletIndication s:hypomagnesemia Take 1 tablet by mouth every morning 4 montelukast (SINGULAIR) 10 mg tabletIndication s:Seasonal Allergic Rhinitis Take 10 mg by mouth nightly 10/25/2018 1 omega-3 fatty acids-fish oil 300-1,000 mg capsuleIndicatio ns:supplement Take 2 g by mouth every morning 1 potassium chloride ER 20 mEq CR tabletIndication s:supplement Take 2 tablets (40 mEq total) by mouth every morning 06/29/2020 4 senna-docusate (PERICOLACE) 8.6-50 mgIndications:co nstipation Take 2 tablets by mouth 2 (two) times a day for 14 days 56 tablet 07/29/2020 4 traMADoL (Ultram) 50 mg tabletIndication s:Post-operative [...] documented in this encounter Progress Notes * Kelsey Boyd DO - 02/15/2021 2:20 PM CDT Fluoroscopically-Guided Sacroiliac Joint Injection [facility] Department of Orthopedic Surgery Division of Physical Medicine and Rehabilitation Patient name: Macie Briseno Date of : 1945 Date of service: 02/15/2021 Macie Briseno presents to the fluoroscopy suite for a fluoroscopically guided bilateral sacroiliac joint injection as part of conservative treatment for sacroiliac joint dysfunction/pain. After informed consent was obtained, the patient was positioned prone on the fluoroscopy table. The right sacroiliac joint was identified under fluoroscopic guidance. The area was prepped and draped in sterile fashion. Using a 25 gauge 2 inch needle, 1-2 cc of 1% lidocaine was infused subcutaneously to anesthetize the region. Then, the needle was inserted into the inferior joint space under fluoroscopic guidance. Confirmation into sacroiliac joint was obtained with infusion of 0.25 mL of Omnipaque contrast, which showed flow into the joint space. Then, a combination of 2 mL of 1% lidocaine and 80 mg of Kenalog was infused, divided between sides. The entire procedure was repeated on the opposite (left) side. The patient tolerated the procedure without complications. Pre and post procedure blood pres sure were stable. The patient was given verbal as well as written follow-up instructions. A pain diary was given to the patient with follow-up instructions. Prior to the start of the procedure, verbal verification by the procedure participant(s) confirmed (as applicable): correct patient identity; correct site/side marked and visible; agreement on the procedure to be done; correct patient positioning; an accurate procedure consent form, relevant imagesand results correctly labeled and displayed; any safety precautions based on clinical history and/or medication use have been addressed. Fluoroscopic guidance used to assist bilateral sacroiliac joint injection. Confirmation of needle placement into the bilateral sacroiliac joint was obtained by injecting 0.5 mL (total) of Omnipaque contrast. I personally performed or was present for the procedure above. Dalton Boyd DO documented in this encounter Plan of Treatment Not on file documented as of this encounter Procedures Procedure Name Priority Date/Time Associated Diagnosis Comments IR INJECTION SI JOINT BILATERAL WITH GUIDANCE Schedule Routine, Read Routine (OP Routine) 02/15/2021 2:54 PM CDT Sacroiliac joint pain documented in this encounter Results * IR [...] this encounter Visit Diagnoses Diagnosis Sacroiliac joint pain- Primary Disorders of sacrum documented in this encounter Administered Medications Inactive Administered Medications - up to 3 most recent administrations Medication Order MAR Action Action Date Dose Rate Site iohexoL (OMNIPAQUE) 300 mg iodine/mL injection solution Code/trauma/sedation medication, Starting on Thu02/15/21 at 1454 Given 02/15/2021 2:54 PM CDT 1 mL lidocaine PF (XYLOCAINE) 10 mg/mL (1 %) preservative free injection Code/trauma/sedation medication, Starting on Thu02/15/21 at 1453, Intra-Procedure (IR), Indications: Administration of Local AnesthesiaIndications:Administratio n of Local Anesthesia Given 02/15/2021 2:53 PM CDT 3 mL triamcinolone (KENALOG) 40 mg/mL injection Code/trauma/sedation medication, Starting on Thu02/15/21 at 1454 Given 02/15/2021 2:54 PM CDT 80 mg documented in this encounter Care Teams Rail Bonder Relationship Specialty Start Date End Date Enmanuel Gan MD [address] [facility] [address] [place] [address] PCP - General Internal Medicine 04/26/20 Tg Houston MD [address] [place] [address] Consulting Physician Cardiology 07/18/20 Guerrero Hunter DPT [address] [facility] [address] [facility] [place] [address] Physical Therapist Physical Therapy 11/08/20 Guerrero Weiner, [facility] [id number] [place] [address] Production Line Worker Physical Therapy 12/12/20 documented as of this encounter
--- OUTSIDE RECORDS SUMMARY | 2024-07-12 08:50 | XMS_ITS | Encounter Summary ---
Author Organization [facility] Address [address] [place] [address] Care Team Providers Care Yarder Engineer Name Role Phone Enmanuel Gan MD Primary Care Provider [phone] Tg Houston MD Unavailable [phone] Guerrero Hunter DPT Unavailable [phone] Guerrero Weiner BATCH WEIGHER Unavailable [phone] Reason for Referral * Cardiology (Routine) - Closed Specialty Diagnoses / Procedures Referred By Contac t Referred To Contact Procedures ECG 12 lead Fred Palma MD [address] [place] [address] Phone: tel: Referral ID Status Reason Start Date Expiration Date Visits Re quested Visits Authorized [id number] Closed 04/11/2021 05/11/2022 1 1 * Cardiology (Routine) - Closed Specialty Diagnoses / Procedures Referred By Contac t Referred To Contact Procedures Stress Treadmill Test Edgardo Ramos MD [address] [address] Phone: tel: fax: Referral ID Status Reason Start Date Expiration Date Visits Re quested Visits Authorized [id number] Closed 04/11/2021 05/11/2022 1 1 * Diagnostic Imaging (Routine) - Closed Specialty Diagnoses / Procedures Referred By Contwolfgang t Referred To Contact Procedures LEXISCAN STRESS TEST REPORT Edgardo Ramos MD [address] [address] Phone: tel: fax: Referral ID Status Reason Start Date Expiration Date Visits Re quested Visits Authorized [id number] Closed 04/11/2021 05/11/2022 1 1 Reason for Visit * Reason Comments Microvascular angina Atrial Fibrillation Encounter Details Date Type Department Care Team (Latest Contact Info) Description 04/08/2021 12:15 PM CDT Office Visit [facility] Cardiology [address] [facility] [address], [place] [address] Tg Houston MD [address] [place] [address] [address] [place] [address] Abnormal echocardiogram (Primary Dx); Heart block atrioventricular; Paroxysmal atrial fibrillation (CMS/HCC) (HCC); Microvascular angina [...] on file Legal 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 Gender Identity Not on file Sexual Orientation Lesbian 05/24/2019 9: 06 AM CDT documented as of this encounter Last Filed Vital Signs Vital Sign Reading Time Taken Comments Blood Pressure 128/84 04/08/2021 12:25 PM CDT Pulse 74 04/08/2021 12:25 PM CDT Temperature - - Respiratory Rate - - Oxygen Saturation 97% 04/08/2021 12:25 PM CDT Inhaled Oxygen Concentration - - Weight 75.1 kg (165 lb 9.6 oz) 04/08/2021 12:25 PM CDT Height 163.8 cm (5' 4.5 ) 04/08/2021 12:25 PM CD T Body Mass Index 27.99 04/08/2021 12:25 PM CDT documented in this encounter Progress Notes * Tg Houston MD - 04/08/2021 12:15 PM CDT Patient Name: Macie Briseno Provider: Tg Houston MD : 1945 Date of Service: 04/08/2021 Referring: Elvia CHIEF COMPLAINT: Paroxysmal atrial fibrillation Microvascular angina [...] further episodes since. She was hospitalized at [facility] from 03/28/21-03/29/21 after having developed exertional shortness of breath, weakness, lightheadedness, and sweating in mid February leading to a hospitalization at [facility] during which she was noted to be [...] on 03/29/2021 was consistent with apical hypertrophy, and she is scheduled to have an MRI on 04/10/2021. Diltiazem, flecainide, and Eliquis were discontinued. An event monitor was placed on discharge. Since her hospital discharge, she has been restricting her activities per our instructions, but hasgenerally been feeling good, with no recurrence of the symptoms she was experiencing prior to her recent hospitalization. Her corroborates that she is doing well. She has a long planned trip to [place], [place] scheduled for 04/19/21-05/04/21, and is very much hoping to be able to proceed with that. MEDICATIONS: Outpatient Encounter Medications as of 04/08/2021 Medication Sig Dispense Refill ??? atorvastatin (LIPITOR) 20 mg tablet Take 20 mg by mouth nightly ??? b complex vitamins tablet take 1 Tablet by Oral route every day (Patient taking differently: Take 1 tablet by mouth every morning ) 0 0 ??? calcium acetate,phosphat bind, (PHOSLO) 667 mg capsule Take 1,334 mg by mouth every morning ??? cholecalciferol (VITAMIN D-3) 25 mcg (1,000 unit) tablet Take 1,000 Units by mouth every morning ??? coenzyme Q10 (CO Q-10) 100 mg capsule take 1 Capsule by Oral route once (Patient taking differently: Take 100 mg by mouth every morning ) 0 0 ??? cyanocobalamin (Vitamin B-12) 100 mcg tablet Take 100 mcg by mouth every morning ??? DULoxetine DR (CYMBALTA) 30 mg capsule Take 60 mg by mouth every morning ??? DULoxetine DR (CYMBALTA) 60 mg capsule Take 60 mg by mouth daily ??? fexofenadine-pseudoephedrine (THELMA-D) 60-120 mg per 12 [...] 1 tablet by mouth every morning ??? montelukast (SINGULAIR) 10 mg tablet Take 10 mg by mouth nightly ??? potassium chloride ER 20 mEq CR tablet Take 40 mEq by mouth every morning ??? sucralfate (CARAFATE) 1 gram tablet Take 2 g by mouth 2 (two) times a day as needed ??? traMADoL (Ultram) 50 mg tablet Take 1 tablet (50 mg total) by mouth every 6 (six) hours as needed for pain 42 tablet 0 ??? triamterene-hydroCHLOROthiazide 37.5-25 mg per capsule TAKE ONE CAPSULE BY MOUTH ONCE DAILY (Patient taking differently: Take 1 tablet/capsule by mouth every morning ) 90 capsule 3 ??? [DISCONTINUED] ALPRAZolam (XANAX) 0.25 mg tablet Take 0.25 mg by mouth nightly as needed (dizziness) ??? ascorbic acid (ascorbic acid with indira hips) 500 mg tablet,chewable Take 500 mg by mouth every morning (Patient not taking: Reported on 04/08/2021) ??? [DISCONTINUED] omega-3 fatty acids-fish oil 300-1,000 mg capsule Take 2 g by mouth every morning No facility-administered encounter medications on file as of 04/08/2021. REVIEW OF SYSTEMS: General: No fever, chills, [...] excessive bleeding or bruising PHYSICAL EXAM: Vitals: 04/08/21 1225 BP: 128/84 Pulse: 74 SpO2: 97% Weight: 75.1 kg (165 lb 9.6 oz) Height: 163.8 cm (5' 4.5 ) Body mass index is 27.99 kg/m??. General: Well appearing, No pain or distress, well nourished. She is accompanied by her . Eyes: AYUSH/EOMI, Conjuctiva Clear ENT: External ears/nose [...] Diagnoses and all orders for this visit: Abnormal echocardiogram (Primary) Assessment & Plan: Echocardiogram is consistent with apical hypertrophy. She is scheduled for an MRI to confirm. If this diagnosis is proven, she will need an ICD rather than just a pacemaker. Heart block atrioventricular Assessment & Plan: Mobitz two second-degree AV block documented while she was on flecainide and diltiazem. She is now off those and is feeling better. An event monitor is in place. If her device cannot be implanted prior to her upcoming trip, it may be reasonable to put it off until after her return in the absence of symptoms if her event monitor is showing no high-grade block;will confer with Dr. Recio about this. Paroxysmal atrial fibrillation (CMS/HCC) (HCC) Assessment & Plan: She has had no symptomatic recurrence, and despite being off flecainide is in sinus rhythm by exam today. Anticoagulation is on hold pending device implantation. Microvascular angina (CMS/HCC) (HCC) Assessment & Plan: She has had no recent symptoms. She remains asymptomatic despite being off diltiazem which had previously controlled her symptoms. Essential hypertension Assessment & Plan: Blood pressure is surprisingly normal today despite being on no antihypertensive therapy except fortriamterene hydrochlorothiazide which she takes for an ear condition. Pure hypercholesterolemia Assessment & Plan: On chronic lipid lowering therapy with good control. No changes made. documented in this encounter Miscellaneous Notes * Assessment & Plan Note - Tg Houston MD - 04/11/2021 7:22 AM CDT Associated Problem(s): Pure hypercholesterolemia On chronic lipid lowering therapy with good control. No changes made. * Assessment & Plan Note - Tg Houston MD - 04/11/2021 7:22 AM CDT Associated Problem(s): Microvascular angina (HCC) She has had no recent symptoms. She remains asymptomatic despite being off diltiazem which had previously controlled her symptoms. * Assessment & Plan Note - Tg Houston MD - 04/11/2021 7:22 AM CDT Associated Problem(s): Dyslipidemia She is on chronic lipid-lowering therapy. * Assessment & Plan Note - Tg Houston MD - 04/11/2021 7:21 AM CDT Associated Problem(s): Essential hypertension (Deleted) Blood pressure is surprisingly normal today despite being on no antihypertensive therapy except fortriamterene hydrochlorothiazide which she takes for an ear condition. * Assessment & Plan Note - Tg Houston MD - 04/11/2021 7:20 AM CDT Associated Problem(s): Paroxysmal atrial fibrillation (CMS/HCC) (HCC) She has had no symptomatic recurrence, and despite being off flecainide is in sinus rhythm by exam today. Anticoagulation is on hold pending device implantation. * Assessment & Plan Note - Tg Houston MD - 04/11/2021 7:20 AM CDT Associated Problem(s): Heart block atrioventricular (Resolved 04/15/2021) Samir two second-degree AV block documented while [...] her event monitor is showing no high-grade block;will confer with Dr. Recio about this. * Assessment & Plan Note - Tg Houston MD - 04/11/2021 7:19 AM CDT Associated Problem(s): Abnormal echocardiogram Echocardiogram is consistent with apical hypertrophy. She is scheduled for an MRI to confirm. If this diagnosis is proven, she will need an ICD rather than just a pacemaker. documented in this encounter Plan of Treatment Not on file documented as of this encounter Procedures Procedure Name Priority Date/Time Associated Diagnosis Comments STRESS TEST FOR DUAL READ Routine 03/26/2021 STRESS TEST ONLY TREADMILL Routine 03/25/2021 ECG 12-LEAD Routine 03/25/2021 documented in this encounter Results * Stress Test for Myocardial Perfusion (03/26/2021) Anatomical Region Laterality Modality Other us Edgardo Ramos MD CV STRESS PROCEDURES Final Resul t * Stress Treadmill Test (03/25/2021) Anatomical Region Laterality Modality Other us Edgardo Ramos MD CV STRESS PROCEDURES Final Resul t * ECG 12 lead (03/25/2021) us Fred Palma MD ECG ORDERABLES Final Result documented in this encounter Visit Diagnoses Diagnosis Abnormal echocardiogram- Primary Nonspecific (abnormal) findings on radiological and other examination of other intrathoracic organs Heart block atrioventricular Unspecified atrioventricular block Paroxysmal atrial fibrillation (CMS/HCC) (HCC) Atrial fibrillation Microvascular angina (HCC) Essential hypertension Unspecified essential hypertension Pure hypercholesterolemia documented in this encounter Discontinued Medications Medication Sig Discontinue Reason Start Date End Da te omega-3 fatty acids-fish oil 300-1,000 mg capsuleIndications:suppl ement Take 2 g by mouth every morning 04/08/2021 documented as of this encounter Orders Imaging Orders Without Results Count Last Order ed Date First Ordered Date LEXISCAN STRESS TEST REPORT 1 03/26/2021 documented in this encounter Care Teams Yarder Engineer Relationship Specialty Start Date End Date Enmanuel Gan MD [address] [facility] [address] [place] [address] PCP - General Internal Medicine 04/26/20 Tg Houston MD [address] [place] [address] Consulting Physician Cardiology 07/18/20 Guerrero Hunter DPT [address] [facility] [address] [facility] [place] [address] Physical Therapist Physical Therapy 11/08/20 Guerrero Weiner, [facility] [address] [place] [address] Furnace Builder Physical Therapy 12/12/20 documented as of this encounter
--- OUTSIDE RECORDS SUMMARY | 2024-07-12 08:50 | XMS_ITS | Encounter Summary ---
Author Organization [facility] Address [address] [place] [address] Phone Care Team Providers Care Supervisor Ovens Name Role Phone Enmanuel Gan MD Primary Care Provider Tg Houston MD Unavailable [phone] Guerrero Hunter DPT Unavailable [phone] Guerrero Weiner OCULAR CARE AIDE Unavailable [phone] Reason for Referral * Consultation (Routine) - Closed Specialty Diagnoses / Procedures Referred By Gigi orosco Referred To Contact Audiology Diagnoses Sensorineural hearing loss, bilateral Enmanuel Gan MD [address] [facility] [address] [facility] [address] [facility] [address] [place] [address] Phone: tel: fax: [facility] (All Locations) Referral ID Status Reason Start Date Expiration Date V isits Requested Visits Authorized [id number] Closed Specialty Services Required 01/30/2021 2022 99 99 Question Answer Please select the performing region: [facility] (All Locations) [167] # of visits: 1 Reason for Visit * Consultation (Routine) - Closed Specialty Diagnoses / Procedures Referred By Gigi orosco Referred To Contact Audiology Diagnoses Sensorineural hearing loss, bilateral Enmanuel Gan MD [address] [place] [address] Phone: tel: fax: [facility] (All Locations) Referral ID Status Reason Start Date Expiration Date V isits Requested Visits Authorized [id number] Closed Specialty Services Required 01/30/2021 2022 99 99 Encounter Details Date Type Department Care Team (Latest Contact Info) Description 02/04/2021 11:00 AM CDT Procedure visit [facility] Otolaryngology [address] [facility] [address] [place] [address] [place] [address] Jasmin Winter, PhD [address] [place] [address] Sensorineural hearing loss, bilateral (Primary Dx) Social [...] attend chur ch or orthodox services? 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 Patient reports: ??? Processor will not connect to the virgilio. This began 3 weeks ago. Error message in virgilio would statethat the processor couldn't be found ??? Currently using backup processor and it is pairing to the virgilio normally ??? Omiro phone clip was returned to Dalia Troubleshooting ??? Disconnected backup processor from the virgilio and turned it off. Attempted to reconnect the current processor to the virgilio - would not connect ??? Disconnected processor from Bluetooth, then reconnected to the phone; this was done successfully. However, it still would not pair with the virgilio ??? Disconnected processor from Bluetooth and deleted virgilio from phone. Re- installed virgilio. Processor was reconnected to the phone and then was successfully paired to the virgilio. Counseling Patient counseled that sometimes deleting and re-installing the virgilio solves the issue. Also counseled patient to let us know if this occurs again and we may order a replacement processor. Recommendations Return to clinic for annual evaluation in June or sooner if needed. * Jasmin Winter, PhD - 02/04/2021 11:00 AM CDT Procedures Cochlear Implant (Active) L/R/Bilateral left ?? 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 Internal CI632 ?? External Kanso 2/dunlap/3(I) ?? Provider Navneet ?? Date of CI surgery 06/19/20 ?? Date of IS 07/09/20 ? MAPS in Processor: SCAN+all IP, 1200 ALLEGRA V6, S12 P1: Map 11 P2:??Map??10??old preferred ?? Services Provided: Troubleshooting CI ?? The patient attended the session alone. Patient reports: ?? Processor will not connect to the virgilio. This began 3 weeks ago. Error message in virgilio would state that the processor couldn't be found ?? Currently using backup processor and it is pairing to the virgilio normally ?? Loaner phone clip was returned to [place] ?? Troubleshooting ?? Disconnected backup processor from the virgilio and turned it off. Attempted to reconnect the currentprocessor to the virgilio - would not connect ?? Disconnected processor from Bluetooth, then reconnected to the phone; this was done successfully. However, it still would not pair with the virgilio ?? Disconnected processor from Bluetooth and deleted virgilio from phone. Re- installed virgilio. Processor was reconnected to the phone and then was successfully paired to the virgilio. ?? Counseling Patient counseled that sometimes deleting and re-installing the virgilio solves the issue. Also counseled patient to let us know if this occurs again and we may order a replacement processor. ?? Recommendations Return to clinic for annual evaluation in June or sooner if needed. ?? documented in this encounter Plan of Treatment Scheduled Referrals Name Type Priority Associated Diagnoses Order Schedule Ambulatory referral to Audiology (ADULT) Outpatient Referral Routine Sensorineural hearing loss, bilateral Expected: 02/13/2021 (Approximate), Expires: 01/30/2022 documented as of this encounter Visit Diagnoses Diagnosis Sensorineural hearing loss, bilateral- Primary documented in this encounter Orders Audiology Count Last Ordered Date First Orde red Date EVALUATION, COCHLEAR IMPLANT PROGRAMMING AND AUDITORY REHABILITATION 1 02/01/2021 documented in this encounter Care Teams Supervisor Ovens Relationship Specialty Start Date End Date Enmanuel Gan MD [address] [facility] [address] [place] [address] PCP - General Internal Medicine 04/26/20 Tg Houston MD [address] [facility] [address] [place] [address] Consulting Physician Cardiology 07/18/20 Guerrero Hunter DPT [address] [facility] [address] [place] [address] Physical Therapist Physical Therapy 11/08/20 Guerrero Weiner, [facility] [address] [facility] [address] [place] [address] Quality Control Supervisor Physical Therapy 12/12/20 documented as of this encounter
--- OUTSIDE RECORDS SUMMARY | 2024-07-12 08:50 | XMS_ITS | Encounter Summary ---
Author Organization [facility] Address [address] [place] [address] Care Team Providers Care In Home Baby Sitter Name Role Phone Enmanuel Gan MD Primary Care Provider [phone] Tg Houston MD Unavailable [phone] Guerrero Hunter DPT Unavailable [phone] Guerrero Weiner NUCLEAR FUELS RECLAMATION ENGINEER Unavailable [phone] Encounter Details Date Type Department Care Team (Late st Contact Info) Description 04/11/2021 Telephone [facility] Cardiology [address] [facility] [address] [place] [address] Tg Houston MD [facility] [facility] [address] [place] [address] Social History Tobacco Use Types [...] 07/30/2020 How often do you attend [facility] or gnosticism services? 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 Robertson response below. She will restart the eliquis. * Telephone Encounter - Tg Houston MD - 04/11/2021 9:17 AM CDT I do not think the leg cramps are related to stopping medications. I would have her resume Eliquis,but remain off flecainide and diltiazem. As far as I can see, she does not meet criteria for a booster shot at this time, which is reserved for immunocompromised patients. We are waiting for recommendations from the FDA regarding booster shots for non immunocompromised patients. * Telephone Encounter - Lea Holland RN - 04/11/2021 8:55 AM CDT Spoke with pt letting her know the the results of her MRI per Dr. Robertson note below. Dr. Isaacs is aware of the results and will be doing the ICD placement. Dr. Houston did say pt is ok to take her trip as planned and the procedure can be done after her return. Mr.s Giancarlo barr wants to know if she should con't all the medication changes that have been made. Since stopping her medications she has been having leg cramps. She also wants to know if she should go ahead with the Covid Vaccine booster now or wait?. 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 There [...] on filedocumented in this encounter Care Teams In Home Baby Sitter Relationship Specialty Start Date End Date Enmanuel Gan MD [address] [facility] [address] [place] [address] [place] [address] PCP - General Internal Medicine 04/26/20 Tg Houston MD [address] [facility] [address] [place] [address] Consulting Physician Cardiology 07/18/20 Guerrero Hunter DPT [address] [facility] [address] [facility] [place] [address] Physical Therapist Physical Therapy 11/08/20 Guerrero Weiner, [facility] [address] [place] [address] Child Care Centre Director Physical Therapy 12/12/20 documented as of this encounter
--- OUTSIDE RECORDS SUMMARY | 2024-07-12 08:50 | XMS_ITS | Encounter Summary ---
Author Organization [facility] Healthcare Address [address] [place] [address] Care Team Providers Care Compliance Assistant Name Role Phone Enmanuel Gan MD Primary Care Provider [phone] Tg Houston MD Unavailable [phone] Guerrero Hunter DPT Unavailable [phone] Guerrero Weiner [employer] RECEPTIONIST Unavailable [phone] Reason for Referral * Diagnostic Imaging (Routine) - Closed Specialty Diagnoses / Procedures Referred By Contac t Referred To Contact Diagnoses Follow-up examination following surgery Procedures XR Scoliosis 6 or More Views Jeremy Michelle MD [address] [place] [address] Phone: tel: fax: [facility] [address] [place] [address] Referral ID Status Reason Start Date Expiration Date Visits Re quested Visits Authorized [id number] Closed 01/16/2021 02/15/2022 1 1 Reason for Visit * Diagnostic Imaging (Routine) - Closed Specialty Diagnoses / Procedures Referred By Contac t Referred To Contact Diagnoses Follow-up examination following surgery Procedures XR Scoliosis 6 or More Views Jeremy Michelle MD [address] [place] [address] Phone: tel: fax: [facility] [address] [facility] [place] [address] Referral ID Status Reason Start Date Expiration Date Visits Re quested Visits Authorized [id number] Closed 01/16/2021 02/15/2022 1 1 Encounter Details Date Type Department Care Team (Latest Contact Info) Description 01/29/2021 9:12 AM CDT - 01/29/2021 11:59 PM CDT Hospital Encounter [facility] [address] [place] [address] Jeremy Michelle MD [address] [facility] [place] [address] Follow-up examination following surgery Discharge Disposition: Discharge to home or self [...] How often do you attend chur or congregation services? Never 07/30/2020 Do you belong to [...] on file Legal Sex Female 9:09 PM [employer] Gender Identity Not on file Sexual Orientation [...] VIEWS Schedule Routine, Read Routine (OP Routine) 01/29/2021 9:31 AM CDT Follow-up examination following surgery documented in this encounter Results * XR Scoliosis 6 or More Views (01/29/2021 9:31 AM CDT) Anatomical Region Laterality Modality Spine N/A Computed Radiogr aphy 01/29/2021 10:1 5 AM CDT Impressions 01/29/2021 10:42 AM CDT 1. Stable postsurgical changes of posterior instrumented fusion L1-L4, noninstrumented posterior spinal fusion L4-S1, and posterior decompression with anterior discectomy and anterior interbody fusion L2-S1. ?? Dictated by: Elliot Oconnell M.D. The radiology attending physician has personally reviewed this study, and had reviewed and/or edited this written report and agrees with it. Electronically signed by: Abelardo Rosales MD, PHD Narrative 01/29/2021 10:42 AM CDT EXAMINATION: XR SCOLIOSIS ??6 OR MORE VIEWS HISTORY: Lumbar spondylosis FINDINGS: 8 radiographs are submitted for interpretation including standing AP and lateral views of the whole body including total spine and frontal, lateral, and bilateral oblique views of the lumbar spine. These are compared to scoliosis series radiographs 11/06/2020. Coronal balance is neutral. ??There is positive sagittal imbalance. No pelvic obliquity. ??No scoliotic curvature. ??There are postsurgical changes of posterior instrumented fusion L1-L4, noninstrumented posterior spinal fusion L4-S1, and posterior decompression with anterior discectomy and anterior interbody fusion L2-S1. ??No hardware loosening or fracture is identified. ??There is mild lumbar degenerative disc disease of the unfused segment. ??Note is made of bilateral total hip arthroplasties. ??Cholecystectomy clips project in the right upper quadrant. ??Radiopaque pills project in left upper quadrant. ??Bilateral hearing aids are in place. Procedure Note Abelardo Rosales MD PhD - 01/29/2021 EXAMINATION: XR SCOLIOSIS 6 OR MORE VIEWS HISTORY: Lumbar spondylosis FINDINGS: 8 radiographs are submitted for interpretation including standing AP and lateral views of the whole body including total spine and frontal, lateral, and bilateral oblique views of the lumbar spine. These are compared to scoliosis series radiographs 11/06/2020. Coronal balance is neutral. There is positive sagittal imbalance. No pelvic obliquity. No scoliotic curvature. There are postsurgical changes of posterior instrumented fusion L1-L4, noninstrumented posterior spinal fusion L4-S1, and posterior decompression with anterior discectomy and anterior interbody fusion L2-S1. No hardware loosening or fracture is identified. There is mild lumbar degenerative disc disease of the unfused segment. Note is made of bilateral total hip arthroplasties. Cholecystectomy clips project in the right upper quadrant. Radiopaque pills project in left upper quadrant. Bilateral hearing aids are in place. IMPRESSION: 1. Stable postsurgical changes of posterior instrumented fusion L1-L4, noninstrumented posterior spinal fusion L4-S1, and posterior decompression with anterior discectomy and anterior interbody fusion L2-S1. Dictated by: Elliot Oconnell M.D. The radiology attending physician has personally reviewed this study, and had reviewed and/or edited this written report and agrees with it. Electronically signed by: Abelardo Rosales MD, PHD Jeremy Michelle MD IMG XR PROCEDURES Fi nal Result documented in this encounter Visit Diagnoses Diagnosis Follow-up examination following surgery documented in this encounter Care Teams Compliance Assistant Relationship Specialty Start Date End Date Enmanuel Gan MD [address] [place] [address] PCP - General Internal Medicine 04/26/20 Tg Houston MD [address] [facility] [address] [place] [address] Consulting Physician Cardiology 07/18/20 Guerrero Hunter DPT [address] [facility] [address] [address] Physical Therapist Physical Therapy 11/08/20 Guerrero Weiner, ELIAN [id number] [place] [address] Telecommunications Professional Physical Therapy 12/12/20 documented as of this encounter
--- OUTSIDE RECORDS SUMMARY | 2024-07-12 08:50 | XMS_ITS | Encounter Summary ---
Author Organization [facility] Address [address] [facility] [address] [place] [address] Care Team Providers Care Farmworker Vegetable Name Role Phone Enmanuel Gan MD Primary Care Provider [phone] Tg Houston MD Unavailable [phone] Guerrero Hunter DPT Unavailable [phone] Guerrero Weiner BOILER TUBE BLOWER Unavailable [phone] Reason for Referral * Cardiology (Routine) - Closed Specialty Diagnoses / Procedures Referred By Gigi t Referred To Contact Diagnoses Paroxysmal atrial fibrillation (CMS/HCC) (HCC) AV block, 2nd degree Apical variant hypertrophic cardiomyopathy (HCC) Procedures DEVICE CHECK - IN OFFICE Ashvin Recio III, MD Phone: tel: fax: [facility] Referral ID Status Reason Start Date Expiration Date Visits Re quested Visits Authorized [id number] Closed 04/15/2021 05/15/2022 1 1 Reason for Visit * Reason Comments Atrial Fibrillation Encounter Details Date Type Department Care Team (Latest Contact Info) Description 04/15/2021 3:45 PM CDT Office Visit Arrhythmia Center [address] [facility] [address] [place] [address] Ashvin Recio III, MD [address] [facility] [address] [place] [address] AV block, 2nd degree (Primary Dx); Apical variant hypertrophic cardiomyopathy (CMS/HCC) (HCC); Paroxysmal atrial fibrillation (CMS/HCC) (HCC) Social History [...] any clubs o r organizations such as restoration groups, unions, fraternal or athletic groups, or [...] on file 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 Gender Identity Not on file Sexual Orientation Lesbian 05/24/2019 9: 06 AM CDT documented as of this encounter Last Filed Vital Signs Vital Sign Reading Time Taken Comments Blood Pressure 101/62 04/15/2021 3:32 PM CDT Pulse 76 04/15/2021 3:32 PM CDT Temperature - - Respiratory Rate 18 04/15/2021 3:32 PM CDT Oxygen Saturation - - Inhaled Oxygen Concentration - - Weight 75.2 kg (165 lb 12.8 oz) 04/15/2021 3:32 PM CDT Height 162.6 cm (5' 4 ) 04/15/2021 3:32 PM CDT Body Mass Index 28.46 04/15/2021 3:32 PM CDT documented in this encounter Progress Notes * Ashvin Recio III, MD - 04/15/2021 3:45 PM CDT Images from the original note were not included. Established Patient Note- [facility] Arr[facility]ia Center [address] [place] [address], [address] [address] This note was dictated with voice-recognition software, and explosive operator supervisor errors may be present. Subjective/Objective Patient ID: Macie Briseno is a 75 y.o. female Chief Complaint Presyncope I had the pleasure of seeing Macie Briseno in consultation at [facility] at [facility] for follow-up of presyncope . As you know, she is a 75 y.o. female with the following arrhythmia-specific history: ??? AV block, second degree. With alternating bundle branch block and presyncope. ??? Atrial fibrillation, paroxysmal. o History of flecainide use, stopped due to AV block. o On apixaban. ??? Hypertrophic cardiomyopathy, apical variant. o Confirmed by cMRI 04/10/21. Max transmural dimension 1.5 cm. No obstruction. ??? Relevant comorbidities: o Hypertension Ms. Briseno returns for follow-up after recent hospitalization for presyncope and AV block. During her evaluation she was found to have alternating bundle branch block and rare episodes of Mobitz 2 avblock. Her echocardiogram demonstrated apical hypertrophy, and MRI confirmed apical variant hypertrophic cardiomyopathy. Her flecainide and diltiazem were stopped. Today she returns feeling well. Denies syncope/presyncope. Denies palpitations. No dyspnea with daily activities. Past Medical History Past Medical History: Diagnosis Date ??? Atrial fibrillation (CMS/HCC) (HCC) ??? Auditory vertigo Meniere's disease ??? HLD (hyperlipidemia) ??? Meniere's disease ??? Microvascular angina (CMS/HCC) (HCC) Past Surgical History Past Surgical History: Procedure Laterality Date ??? BACK SURGERY 2017 lower back, 2018, 2019 ??? CHOLECYSTECTOMY Cholecystectomy ??? COCHLEAR IMPLANT Left 06/19/2020 ??? IR INJECTION ARTHROGRAM SI JOINT BILATERAL WITH GUIDANCE Bilateral 02/15/2021 ??? JOINT REPLACEMENT Hip replacement, L - 2013, R - 2014 ??? OTHER SURGICAL HISTORY 1998 Sectioning of left vesibular nerve ??? VESTIBULAR NERVE SECTION Left Medications Current Outpatient Medications: ??? ALPRAZolam (XANAX) 0.25 mg tablet, Take 1 tablet (0.25 mg total) by mouth nightly as needed (dizziness), Disp: 30 tablet, Rfl: 0 ??? ascorbic acid (ascorbic acid with indira hips) 500 mg tablet,chewable, Take 500 mg by mouth everymorning (Patient not taking: Reported on 04/08/2021), Disp: , Rfl: ??? atorvastatin (LIPITOR) 20 mg tablet, Take 20 mg by mouth nightly , Disp: , Rfl: ??? b complex vitamins tablet, take 1 Tablet by Oral route every day (Patient taking differently: Take 1 tablet by mouth every morning ), Disp: 0, Rfl: 0 ??? calcium acetate,phosphat bind, (PHOSLO) 667 mg capsule, Take 1,334 mg by mouth every morning, Disp: , Rfl: ??? cholecalciferol (VITAMIN D-3) 25 mcg (1,000 unit) tablet, Take 1,000 Units by mouth every morning, Disp: , Rfl: ??? coenzyme Q10 (CO Q-10) 100 mg capsule, take 1 Capsule by Oral route once (Patient taking differently: Take 100 mg by mouth every morning ), Disp: 0, Rfl: 0 ??? cyanocobalamin (Vitamin B-12) 100 mcg tablet, Take 100 mcg by mouth every morning, Disp: , Rfl: ??? DULoxetine DR (CYMBALTA) 30 mg capsule, Take 60 mg by mouth every morning , Disp: , Rfl: ??? DULoxetine DR (CYMBALTA) 60 mg capsule, Take 60 mg by mouth daily, Disp: , Rfl: ??? fexofenadine-pseudoephedrine (THELMA-D) 60-120 mg per 12 hr tablet, Take 1 tablet by mouth 2 (two) times a day as needed for allergies, Disp: , Rfl: ??? fluticasone (FLONASE) 50 mcg/actuation nasal spray, inhale 1 spray (50MCG) by intranasal route every day in each nostril (Patient taking differently: Administer into each nostril nightly ), Disp:, Rfl: 0 ??? magnesium citrate 100 mg tablet, Take 1 tablet by mouth every morning, Disp: , Rfl: ??? montelukast (SINGULAIR) 10 mg tablet, Take 10 mg by mouth nightly , Disp: , Rfl: ??? potassium chloride ER 20 mEq CR tablet, Take 40 mEq by mouth every morning , Disp: , Rfl: ??? sucralfate (CARAFATE) 1 gram tablet, Take 2 g by mouth 2 (two) times a day as needed, Disp: , Rfl: ??? traMADoL (Ultram) 50 mg tablet, Take 1 tablet (50 mg total) by mouth every 6 (six) hours as needed for pain, Disp: 42 tablet, Rfl: 0 ??? triamterene-hydroCHLOROthiazide 37.5-25 mg per capsule, TAKE ONE CAPSULE BY MOUTH ONCE DAILY (Patient taking differently: Take 1 tablet/capsule by mouth every morning ), Disp: 90 capsule, Rfl: 3 Allergies Allergies Allergen Reactions ??? Adhesive Rash and Blisters Surgical tape ??? Chlorhexidine Rash ??? Sulfa (Sulfonamide Antibiotics) Hives and Rash ??? Gabapentin Other (See comments) Retain water Family [...] ??? Anesthesia problems Neg Hx Social History Social History Socioeconomic History ??? Marital status: Spouse name: Not on file ??? Number of children: Not on file ??? Years of education: Not on file ??? Highest education level: Not on file Occupational History ??? Not on file Tobacco Use ??? Smoking status: Never Smoker ??? Smokeless tobacco: Never Used Vaping Use ??? Vaping Use: Never used Substance and Sexual Activity ??? Alcohol use: Yes Alcohol/week: 5.0 standard drinks Types: 5 Glasses of wine per week ??? Drug use: Not Currently Comment: cbd oil topically ??? Sexual activity: Not on file Other Topics Concern ??? Not on file Social History Narrative General Social History Comments: female spouse Social Determinants of Health Financial Resource Strain: Low Risk ??? Difficulty of Paying Living Expenses: Not hard at all Food Insecurity: No Food Insecurity ??? Worried About Running Out of Food in the Last Year: Never true ??? Ran Out of Food in the Last Year: Never true Transportation Needs: No Transportation Needs ??? Lack of Transportation (Medical): No ??? Lack of Transportation (Non-Medical): No Physical Activity: ??? Days of Exercise per Week: Not on file ??? Minutes of Exercise per Session: Not on file Stress: ??? Feeling of Stress : Not on file Social Connections: Moderately Isolated ??? Frequency of Communication with Friends and Family: More than three times a week ??? Frequency of Social Gatherings with Friends and Family: Twice a week ??? Attends Adventist Services: Never ??? Active Member of Clubs or Organizations: No ??? Attends Club or Organization Meetings: Never ??? Marital Status: Intimate Partner Violence: ??? Fear of Current or Ex-Partner: Not on file ??? Emotionally Abused: Not on file ??? Physically Abused: Not on file ??? Sexually Abused: Not on file Review of Systems Constitutional: Negative for new fatigue or malaise. Respiratory: Negative for worsening dyspnea or cough. Cardiovascular: Negative chest pain, palpitations, syncope. Objective Vitals: 04/15/21 1532 BP: 101/62 BP Location: Left arm Patient Position: Sitting Pulse: 76 Resp: 18 Weight: 75.2 kg (165 lb 12.8 oz) Height: 162.6 cm (5' 4 ) General: No acute distress. Pulmonary: Clear to auscultation bilaterally. Cardiovascular: Regular rate/rhythm. No murmurs/rubs. No JVD or lower extremity edema. Diagnostic Data ECG performed today and reviewed personally reveals sinus rhythm with frequent PACs. Incomplete right bundle branch block. Normal axis. T-wave inversions diffusely. Left ventricular hypertrophy. Labs Creatinine Date Value Ref Range Status 2020 0.66 0.60 - 1.10 mg/dL Final , Plt Date Value Ref Range Status 11/08/2020 277 150 - 400 K/cumm Final , WBC Date Value Ref Range Status 11/08/2020 5.5 3.8 - 9.9 K/cumm Final , Total Hb, POC Date Value Ref Range Status 07/25/2020 12.1 11.9 - 15.5 g/dL Final Hgb Date Value Ref Range Status 11/08/2020 13.3 11.9 - 15.5 g/dL Final Above labs reviewed. Hemoglobin, platelet count and creatinine are stable and appropriate for continued use of apixaban. Cardiac MRI 04/10/21 reviewed: Normal LV cavity [...] Diagnoses and all orders for this visit: AV block, 2nd degree (Primary) Assessment & Plan: With alternating bundle branch block and near [...] arrange for dual chamber ICD implantation w/anesthesia ([email or web address]). --Hold beta nayana. --Flecainide stopped indefinitely. --Hold apixaban for 2 days prior to procedure. Orders: - Basic metabolic panel; Future - CBC with auto differential; Future Apical variant hypertrophic cardiomyopathy (CMS/HCC) (HCC) Assessment & Plan: New diagnosis. With syncope. No documented VT. [...] ICD implantation. --HF therapy per Dr. Houston. Orders: - Basic metabolic panel; Future - CBC with auto differential; Future Paroxysmal atrial fibrillation (CMS/HCC) (HCC) Assessment & Plan: No recent symptoms. Frequent PACs currently. Previously managed with flecainide, complicated by exacerbation of AV block. Flecainide contraindicated in presence of HCM and AV block. Will address AF therapy after device in place. --Holding BB for now. --Dual chamber ICD as above. --Resume BB after ICD implantation. --Continue apixaban, hold for procedure. Orders: - ECG 12 lead - Basic metabolic panel; Future - CBC with auto differential; Future F/u after procedure. It was my pleasure to see Macie Briseno today in the office. Please do not hesitate to contact me with any questions or concerns regarding care. Sincerely, Ashvin Recio III, M.D. Cardiac Electrophysiology [facility] Arrhythmia Center [facility] documented in this encounter Miscellaneous Notes * Assessment & Plan Note - Ashvin Recio III, MD - 04/15/2021 4:31 PM CDTAssociated Problem(s): Apical variant hypertrophic cardiomyopathy (HCC) New diagnosis. With syncope. No documented VT. [...] ICD implantation. --HF therapy per Dr. Houston. * Assessment & Plan Note - Ashvin Recio III, MD - 04/15/2021 4:30 PM CDTAssociated Problem(s): Paroxysmal atrial fibrillation (CMS/HCC) (HCC) No recent symptoms. Frequent PACs currently. Previously managed with flecainide, complicated by exacerbation of AV block. Flecainide contraindicated in presence of HCM and AV block. Will address AF therapy after device in place. --Holding BB for now. --Dual chamber ICD as above. --Resume BB after ICD implantation. --Continue apixaban, hold for procedure. * Assessment & Plan Note - Ashvin Recio III, MD - 04/15/2021 4:28 PM CDTAssociated Problem(s): AV block, 2nd degree With alternating bundle branch block and near [...] arrange for dual chamber ICD implantation w/anesthesia ([employer]). --Hold beta nayana. --Flecainide stopped indefinitely. --Hold apixaban for 2 days prior to procedure. documented in this encounter Plan of Treatment Not on file documented as of this encounter Procedures Procedure Name Priority Date/Time Associated Diagnosis Comments CBC WITH AUTO DIFFERENTIAL Routine 05/30/2021 7:58 AM CDT Paroxysmal atrial fibrillation (CMS/HCC) (HCC) AV block, 2nd degree Apical variant hypertrophic cardiomyopathy (CMS/HCC) (HCC) BASIC METABOLIC PANEL Routine 05/30/2021 7:58 AM CDT Paroxysmal atrial fibrillation (CMS/HCC) (HCC) AV block, 2nd degree Apical variant hypertrophic cardiomyopathy (CMS/HCC) (HCC) ECG 12-LEAD Routine 04/15/2021 Paroxysmal atrial fibrillation (CMS/HCC) (HCC) documented in this encounter Results * DEVICE CHECK - IN OFFICE (06/12/2021 11:08 AM MENTAL HEALTH COUNSELOR) Anatomical Region Laterality Modality Other Narrative 06/12/2021 12:45 PM MENTAL HEALTH COUNSELOR This patient received a [employer] ICD. ??They had a routine [employer] in office device interrogation ??on 06/12/2021. [...] 9.5 seconds Episodes last 90 days/Comments: AF [place] 0% There were no new ventricular events noted on today's remote interrogation. NORMAL DEVICE FUNCTION PROGRAMMED Medications - Anti-coagulant(s): ??Eliquis 5 mg Anti-arrhythmic(s): ??None Plan: 1) normal [employer] ICD evaluation. 2) device interrogation on 07/22/2021 in office. Latisha Self R.N. Ashvin Recio III, MD CV CARDIAC SERVICES PROCEDURES Final Result * CBC with auto differential (05/30/2021 7:58 AM CDT) WBC 4.8 3.8 - 10.8 Thousand/u L [facility] RBC, POC 5.02 3.80 - 5.10 Million/uL [facility] Hgb 14.8 11.7 - 15.5 g/dL [facility] Hct 44.7 35.0 - 45.0 % [facility] MCV 89.0 80.0 - 100.0 fL [facility] MCH 29.5 27.0 - 33.0 pg [facility] MCHC 33.1 32.0 - 36.0 g/dL [facility] Rdw 12.6 11.0 - 15.0 % [facility] Platelets 316 140 - 400 Thousand/u L [facility] MPV 10.7 7.5 - 12.5 fL [facility] Neutrophils, abs 2,376 1,500 - 7,800 cells/uL [facility] Lymphocytes, abs 1,867 850 - 3,900 cells/uL [facility] Monocyte abs 370 200 - 950 cells/uL [facility] Eosinophils, abs 139 15 - 500 cells/uL [facility] Basophils, abs 48 0 - 200 cells/uL [facility] Neutrophils 49.5 % [facility] Lymphocyte pct 38.9 % [facility] Monocytes 7.7 % [facility] Eosinophils 2.9 % [facility] Basophils 1.0 % [facility] Blood specimen (specimen) 05/30/2021 7:58 AM CDT 05/30/2021 7:59 AM CDT Narrative [facility] - 05/31/2021 3:47 AM CDT FASTING:YES AN UPDATE OR CORRECTION HAS BEEN MADE TO NAME FASTING: YES us Ashvin Recio III, MD LAB BLOOD ORDERABLE S Final Result [facility] [address] [place] [address] * Basic metabolic panel (05/30/2021 7:58 AM CDT) Pathologist [facility] Glucose 91 65 - 99 mg/dL [facility] Comment: ? Fasting reference interval BUN 16 7 - 25 mg/dL [facility] Creatinine 0.88 0.60 - 0.93 mg/dL [facility] Comment: For patients >49 years of age, the reference limit for Creatinine is approximately 13% higher for people identified as -Austrian. eGFR NON-AFR. SWISS 65 > OR = 60 mL/min/1 .73m2 [facility] EGFR 75 > OR = 60 mL/min/1 .73m2 [facility] BUN/creat ratio NOT APPLICABLE 6 - 22 (calc) [facility] Sodium 141 135 - 146 mmol/L [facility] Potassium, pl 3.6 3.5 - 5.3 mmol/L [facility] Chloride 104 98 - 110 mmol/L [facility] CO2 30 20 - 32 mmol/L [facility] Calcium 9.4 8.6 - 10.4 mg/dL [facility] Blood specimen (specimen) 05/30/2021 7:58 AM CDT 05/30/2021 7:59 AM CDT Narrative [facility] - 05/31/2021 3:47 AM CDT FASTING:YES AN UPDATE OR CORRECTION HAS BEEN MADE TO NAME FASTING: YES us Ashvin Recio III, MD LAB BLOOD ORDERABLE S Final Result [facility] [address] [place] [address] * ECG 12 lead (04/15/2021) Ashvin Recio III, MD ECG ORDERABLES Fin al Result documented in this encounter Visit Diagnoses Diagnosis AV block, 2nd degree- Primary Other second degree atrioventricular block Apical variant hypertrophic cardiomyopathy (HCC) Paroxysmal atrial fibrillation (CMS/HCC) (HCC) Atrial fibrillation Paroxysmal atrial fibrillation (CMS/HCC) (HCC) Atrial fibrillation AV block, 2nd degree Other second degree atrioventricular block Apical variant hypertrophic cardiomyopathy (HCC) Automatic implantable cardiac defibrillator in situ documented in this encounter Care Teams Farmworker Vegetable Relationship Specialty Start Date End Date Enmanuel Gan MD [address] [facility]NAL MEDICINE [place], [place] [id number] PCP - General Internal Medicine 04/26/20 Tg Houston MD [address] [place] [address] Consulting Physician Cardiology 07/18/20 Guerrero Hunter DPT [address] [place] [address] Physical Therapist Physical Therapy 11/08/20 Guerrero Weiner, BOILER TUBE BLOWER [address] [facility] [address] [place] [address] Steel Die Printer Physical Therapy 12/12/20 documented as of this encounter
--- OUTSIDE RECORDS SUMMARY | 2024-07-12 08:50 | XMS_ITS | Encounter Summary ---
Author Organization [facility] Address [address] [facility] [address] [place] [address] Care Team Providers Care Field Checker Name Role Phone Enmanuel Gan MD Primary Care Provider [phone] Tg Houston MD Unavailable [phone] Guerrero Hunter DPT Unavailable [phone] Guerrero Weiner STATION ENGINEER CHIEF Unavailable [phone] Reason for Visit * Reason Onset Date Comments increase SOB 03/28/2021 Encounter Details Date Type Department Care Team (Late st Contact Info) Description 03/28/2021 Telephone [facility] Cardiology [address] [facility] [address] [place] [address] Tg Houston MD [address] [place] [address] [address] [place] [address] increase SOB Social History Tobacco Use Types Packs/Day Years [...] file 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 Recio about Ms. Briseno. He is not certain that it will be possible to schedule her for a pacemaker tomorrow, but recommended that we hospitalized her so he can see her in consultation in the morning and make a decision regarding that. There are currently no bed, but bed management will call her when an ACC or medical telemetry bed is available. I called the patient back and explained this. * Telephone Encounter - Tg Houston MD - 03/28/2021 4:59 PM CDT We need the actual ECGs from [facility] from earlier this week. * Telephone Encounter - Tg Houston MD - 03/28/2021 4:48 PM CDT Actually we now do have the cardiology consult note and cardiology portion of the [facility] report. When I saw her in December she had a left bundle branch block which was new. During this hospitalizationshe had Mobitz two second-degree AV block as well as a right bundle branch block. I called her did discuss her symptoms. She has been feeling more tired over the last few days priorto her hospitalization and had an episode when she was walking to fill her bird feeder where she became weak and presyncopal in could hardly stand. She is not symptomatic at rest so when she was hospitalized she did not have any problems identified except for the rhythm abnormality seen above. Theyapparently did not know that she had had a left bundle branch block on an EKG in December. I am very suspicious that her symptoms are related to severe conduction system disease and will tryto facilitate her getting a pacemaker soon. I told her to stop her flecainide, stop Eliquis, not drive, and to be a ???couch potato?? until she hears further. * Telephone Encounter - Lea Holland RN - 03/28/2021 4:37 PM CDT LVM pt home # Asking her to call me Dr. Houston wants her to come in for f/u OV 04/08/21 at 12:15. * Telephone Encounter - Tg Houston MD - 03/28/2021 4:24 PM CDT OK to add on for 04/08. Please let me know when we get the records (hopefully tomorrow), and I'll let her know my impressions then. * Telephone Encounter - Lea Holland RN - 03/28/2021 3:56 PM CDT Pt calling today Has a f/u appointment with Dr. Houston 05/06/21 after her overnight stay at [facility] for chest pain. At home now she is having and noted increased SOB just doing ADL's. Along with increased Fatigue. No medication changes were made when at the hospital recently. She has not checked her B/P. She has no leg swelling or further chest discomfort. She wonders if she can either be seen sooner or if Dr. Houston would call her, either way. I did offer her Apr 22 OV elias will be out of town herself. Will forward to Dr. Houston could add on 04/08/21 at 12;[address] Houston ( I have requested records not yet available ) documented in this encounter Plan of Treatment Not on file documented as of this encounter Visit Diagnoses Not on filedocumented in this encounter Care Teams Field Checker Relationship Specialty Start Date End Date Enmanuel Gan MD [address] [facility] [address] [place] [address] PCP - General Internal Medicine 04/26/20 Tg Houston MD [address] [facility] [address] [place] [address] Consulting Physician Cardiology 07/18/20 Guerrero Hunter DPT [address] [facility] [address] [place], [place] [id number] Physical Therapist Physical Therapy 11/08/20 Guerrero Weiner, [facility] [address] [facility] [address] [place] [address] Solution Sales Senior Executive Physical Therapy 12/12/20 documented as of this encounter
--- OUTSIDE RECORDS SUMMARY | 2024-07-12 08:50 | XMS_ITS | Encounter Summary ---
Author Organization [facility] Address [address] [place] [address] Phone Care Team Providers Care Plycor Operator Name Role Phone Enmanuel Gan MD Primary Care Provider [phone] Tg Houston MD Unavailable [phone] Guerrero Hunter DPT Unavailable [phone] Guerrero Weiner PTA Unavailable [phone] Reason for Visit * Reason Comments PT Treatment * Consultation (Routine) - Closed Specialty Diagnoses / Procedures Referred By Contac t Referred To Contact Physical Therapy Diagnoses Post-operative pain S/P spinal fusion Jeremy Michelle MD [address] [facility] [address] [place] [address] Phone: tel: fax: [facility] (All Locations) Referral ID Status Reason Start Date Expiration Date V isits Requested Visits Authorized [id number] Closed Specialty Services Required 11/02/2020 11/02/2021 24 24 Encounter Details Date Type Department Care Team (Late st Contact Info) Description 03/06/2021 10:45 AM CDT Therapy [facility] Physical Therapy [address] [facility] 1st Floor [address] [place] [address] Guerrero Hunter DPRoshni [address] [facility] [address] [place] [id number] Post-operative pain (Primary Dx); Chronic bilateral low back pain without sciatica; Hip pain Social History Tobacco Use Types [...] attend chur ch or anabaptism services? 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 Post-operative pain 338.18 G89.18 2. Chronic bilateral low back pain without sciatica 724.2 M54.5 338.29 G89.29 3. Hip pain 719.45 M25.559 COVID-19 Screening: Patient was pre-screened prior to entering clinic space and passed. Passed screening determines patient has no current fever, cough, SOB, loss of sense of taste or sense of smell,body aches, or sore throat. Patient has not been exposed to anyone suspected of having COVID-19 in the past 14 days. Subjective: Patient states that she is doing better. She is beginning to recognize movements throughout her day that can be modified to improve her symptoms. She states that the SI belt has made a great difference, and continues to wear the belt throughout the day. Treatment Provided: Movement diagnosis - lumbar rotation [...] over door Neutral spine Standing hip hinge x Shoulder row YTB Manual Therapy leukotape [...] belt Patient requests emails be sent to: [email or web address] Assessment: Pt presents with good technique with exercises/activities and required minimal cues to engage gluts, to engage abdominals, for proper direction of movement and for set up and technique to prevent compensatory movement, for knee-toe alignment, to prevent excessive lumbopelvic rotation, to prevent [...] thigh documented in this encounter Care Teams Plycor Operator Relationship Specialty Start Date End Date Enmanuel Gan MD [address] [facility] [address] [place] [address] PCP - General Internal Medicine 04/26/20 Tg Houston MD [address] [facility] [address] [place] [address] Consulting Physician Cardiology 07/18/20 Guerrero Hunter DPT [address] [facility] [address] [facility] [place] [address] Physical Therapist Physical Therapy 11/08/20 Guerrero Weiner, [facility] [address] [facility] [address] [place] [address] Typewriter Assembly And Parts Inspector Physical Therapy 12/12/20 documented as of this encounter
--- OUTSIDE RECORDS SUMMARY | 2024-07-12 08:50 | XMS_ITS | Encounter Summary ---
Author Organization [facility] Address [address] [place] [address] Phone Care Team Providers Care Pilot Plant Operator Name Role Phone Enmanuel Gan MD Primary Care Provider [phone] Tg Houston MD Unavailable [phone] Guerrero Hunter DPT Unavailable [phone] Guerrero Weiner MEDICAL RECORD LIBRARIAN Unavailable [phone] Reason for Referral * Diagnostic Imaging (Routine) - Closed Specialty Diagnoses / Procedures Referred By Contac t Referred To Contact Diagnoses Follow-up examination following surgery Procedures XR Scoliosis 6 or More Views Jeremy Michelle MD [address] [facility] [place] [address] Phone: tel: fax: [facility] [address] [place] [address] Referral ID Status Reason Start Date Expiration Date Visits Re quested Visits Authorized [id number] Closed 01/16/2021 02/15/2022 1 1 Encounter Details Date Type Department Care Team (Late st Contact Info) Description 01/16/2021 Orders Only [facility] Orthopaedic Surgery [address] [facility] 6th Floor [address] [place] [id number] Jeremy Michelle MD [address] [facility] [place] [address] Follow-up examination following surgery (Primary Dx) Social [...] file 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 Gender Identity Not on file Sexual Orientation [...] Diagnoses Diagnosis Follow-up examination following surgery- Primary Follow-up examination following surgery documented in this encounter Care Teams Pilot Plant Operator Relationship Specialty Start Date End Date Enmanuel Gan MD [address] [facility] [address] [place] [address] PCP - General Internal Medicine 04/26/20 Tg Houston MD [address] [facility] [address] [place] [address] Consulting Physician Cardiology 07/18/20 Guerrero Hunter DPT [address] [facility] [address] [place] [address] Physical Therapist Physical Therapy 11/08/20 Guerrero Weiner, MEDICAL RECORD LIBRARIAN [address] [facility] [address] [place] [address] Associate Creative Director Physical Therapy 12/12/20 documented as of this encounter
--- OUTSIDE RECORDS SUMMARY | 2024-07-12 08:50 | XMS_ITS | Encounter Summary ---
Author Organization [facility] Address [address] [facility] [address] [place] [address] Care Team Providers Care Oil Operator Name Role Phone Enmanuel Gan MD Primary Care Provider [phone] Tg Houston MD Unavailable [phone] Guerrero Hunter DPT Unavailable [phone] Guerrero Weiner WHARF TENDER HELPER Unavailable [phone] Reason for Visit * Reason Comments Atrial Fibrillation microvascular angina Encounter Details Date Type Department Care Team (Latest Contact Info) Description 01/14/2021 1:45 PM CDT Office Visit [facility] Medical [facility] Cardiology [address] [facility] [address] [place] [address] Tg Houston MD [address] [place] [address] [address] [place] [address] Microvascular angina (CMS/HCC) (Primary Dx); Paroxysmal atrial fibrillation (CMS/HCC); Essential hypertension; Dyslipidemia Social History Tobacco Use Types Packs/Day [...] on file 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 Gender Identity Not on file Sexual Orientation Lesbian 05/24/2019 9: 06 AM CDT documented as of this encounter Last Filed Vital Signs Vital Sign Reading Time Taken Comments Blood Pressure 124/68 01/14/2021 1:31 PM CDT Pulse 68 01/14/2021 1:31 PM CDT Temperature - - Respiratory Rate - - Oxygen Saturation 96% 01/14/2021 1:31 PM CDT Inhaled Oxygen Concentration - - Weight 76.5 kg (168 lb 9.6 oz) 01/14/2021 1:31 P M CDT Height 162.6 cm (5' 4 ) 01/14/2021 1:31 PM CDT Body Mass Index 28.94 01/14/2021 1:31 PM CDT documented in this encounter Progress Notes * Tg Houston MD - 01/14/2021 1:45 PM CDT Patient Name: Macie Briseno Provider: Tg Houston MD : 1945 Date of Service: 01/14/2021 Referring: Elvia CHIEF COMPLAINT: Paroxysmal atrial fibrillation [...] has had no further episodes since. She had extensive back surgery in June 2020. She continues to get physical therapy but still has a lot of pain. She is not experiencing any chest discomfort or palpitations. MEDICATIONS: Outpatient Encounter Medications as of 01/14/2021 Medication Sig Dispense Refill ??? ALPRAZolam (XANAX) 0.25 mg tablet Take 2 tablets (0.5 mg total) by mouth nightly as needed (dizziness) 60 tablet 0 ??? ascorbic acid (ascorbic acid with indira hips) 500 mg tablet,chewable Take 500 mg by mouth every morning ??? atorvastatin (LIPITOR) 20 mg tablet Take 20 mg by mouth nightly ??? b complex vitamins tablet take 1 Tablet by Oral route every day (Patient taking differently: Take 1 tablet by mouth every morning ) 0 0 ??? baclofen (LIORESAL) 10 mg tablet Take 1 tablet (10 mg total) by mouth 2 (two) times a day 90 tablet 1 ??? calcium acetate,phosphat bind, (PHOSLO) 667 mg [...] 100 mcg by mouth every morning ??? diltiazem (TIAZAC) 180 mg 24 hr capsule Take 1 capsule (180 mg total) by mouth daily 90 capsule3 ??? DULoxetine DR (CYMBALTA) 30 mg capsule Take 60 mg by mouth every morning ??? DULoxetine DR (CYMBALTA) 60 mg capsule Take 60 mg by mouth daily ??? Eliquis 5 mg tablet Take 5 mg by mouth every 12 (twelve) hours ??? flecainide (TAMBOCOR) 100 mg tablet Take 100 mg by mouth 2 (two) times a day ??? fluticasone (FLONASE) 50 mcg/actuation nasal spray inhale 1 spray (50MCG) by intranasal route every day in each nostril (Patient taking differently: Administer into each nostril nightly ) 0 ??? magnesium citrate 100 mg tablet Take 1 tablet by mouth every morning ??? montelukast (SINGULAIR) 10 mg tablet Take 10 mg by mouth nightly ??? omega-3 fatty acids-fish oil 300-1,000 mg capsule Take 2 g by mouth every morning ??? potassium chloride ER 20 mEq CR tablet Take 40 mEq by mouth every morning ??? traMADoL (Ultram) 50 mg tablet Take 1 tablet (50 mg total) by mouth every 6 (six) hours as needed for pain 42 tablet 0 ??? triamterene-hydroCHLOROthiazide 37.5-25 mg per capsule TAKE ONE CAPSULE BY MOUTH ONCE DAILY (Patient taking differently: Take 1 tablet/capsule by mouth every morning ) 90 capsule 3 No facility-administered encounter medications on file as of 01/14/2021. REVIEW OF SYSTEMS: General: No fever, chills, malaise or fatigue Eyes: No alterations in visual acuity ENT: No alterations in auditory acuity, no sore throat. Hard of hearing, recent left cochlear implant Pulmonary: No dyspnea, cough or hemoptysis Cardiac: +chest pain, no orthopnea, PND or palpitations GI: No nausea, vomiting, diarrhea or constipation Musculoskeletal: No myalgias or arthralgias +back pain Skin: no rashes Neuro: No headaches, parathesias or focal neurological complaints Endocrine: No cold or heat intolerance Heme: no excessive bleeding or bruising PHYSICAL EXAM: Vitals: 01/14/21 1331 BP: 124/68 Pulse: 68 SpO2: 96% Weight: 76.5 kg (168 lb 9.6 oz) Height: 162.6 cm (5' 4 ) Body mass index is 28.94 kg/m??. General: Well appearing, No pain or [...] normal affect Neurologic: awake/alert, no focal deficits EKG 01/14/2021 Rate 65 axis 0?? SC 0.22 QRS 0.18 QT 0.48 Normal sinus rhythm with first-degree AV block Left bundle branch block Compared with 07/27/2020 left bundle branch block is new who ASSESSMENT & PLAN: Diagnoses and all orders for this visit: Microvascular angina (CMS/HCC) (Primary) Assessment & Plan: Quiescent on diltiazem which she should continue. Orders: - ECG 12 lead Paroxysmal atrial fibrillation (CMS/HCC) Assessment & Plan: Maintaining sinus rhythm on flecainide. She is anticoagulated with Eliquis. EKG today shows acceptable QT interval. Orders: - ECG 12 lead Essential hypertension Assessment & Plan: Blood pressure is adequately controlled on current regimen. No change was made. Dyslipidemia Assessment & Plan: On chronic lipid lowering therapy with good control. No changes made. documented in this encounter Miscellaneous Notes * Assessment & Plan Note - Tg Houston MD - 01/14/2021 2:54 PM CDT Associated Problem(s): Dyslipidemia On chronic lipid lowering therapy with good control. No changes made. * Assessment & Plan Note - Tg Houston MD - 01/14/2021 2:54 PM CDT Associated Problem(s): Essential hypertension (Deleted) Blood pressure is adequately controlled on current regimen. No change was made. * Assessment & Plan Note - Tg Houston MD - 01/14/2021 2:53 PM CDT Associated Problem(s): Paroxysmal atrial fibrillation (CMS/HCC) (HCC) Maintaining sinus rhythm on flecainide. She is anticoagulated with Eliquis. EKG today shows acceptable QT interval. * Assessment & Plan Note - Tg Houston MD - 01/14/2021 2:53 PM CDT Associated Problem(s): Microvascular angina (HCC) Quiescent on diltiazem which she should continue. documented in this encounter Plan of Treatment Not on file documented as of this encounter Procedures Procedure Name Priority Date/Time Associated Diagnosis Comments ECG 12-LEAD Routine 01/14/2021 Microvascular angina (CMS/HCC) Paroxysmal atrial fibrillation (CMS/HCC) documented in this encounter Results * ECG 12 lead (01/14/2021) us Tg Houston MD ECG ORDERABLES Final Resul t documented in this encounter Visit Diagnoses Diagnosis Microvascular angina (HCC)- Primary Paroxysmal atrial fibrillation (CMS/HCC) (HCC) Atrial fibrillation Essential hypertension Unspecified essential hypertension Dyslipidemia Other and unspecified hyperlipidemia documented in this encounter Care Teams Oil Operator Relationship Specialty Start Date End Date Enmanuel Gan MD [address] [place] [address] PCP - General Internal Medicine 04/26/20 Tg Houston MD [address] [facility] [address] [place] [address] Consulting Physician Cardiology 07/18/20 Guerrero Hunter DPT [address] [facility] [address] [facility] [place], [place] [id number] Physical Therapist Physical Therapy 11/08/20 Guerrero Weiner, [facility] [address] [place] [address] [place] [address] Pianos And Organs Salesperson Physical Therapy 12/12/20 documented as of this encounter
--- OUTSIDE RECORDS SUMMARY | 2024-07-12 08:50 | XMS_ITS | Encounter Summary ---
Author Organization [facility] Address [address] [facility] [address] [place] [address] Care Team Providers Care Manager Documentation Name Role Phone Enmanuel Gan MD Primary Care Provider [phone] Tg Houston MD Unavailable [phone] Guerrero Hunter DPT Unavailable [phone] Guerrero Weiner DIAMOND CLEAVER Unavailable [phone] Encounter Details Date Type Department Care Team (Late st Contact Info) Description 04/11/2021 Telephone [facility] Cardiology [address] [place] [address] Edgardo Ramos MD [address] [place] [id number] Social History Tobacco Use Types Packs/Day Years [...] How often do you attend [facility] or episcopalian services? 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 She may follow-up with her primary etched circuit processor. documented in this encounter Plan of Treatment Not on file documented as of this encounter Visit Diagnoses Not on filedocumented in this encounter Care Teams Manager Documentation Relationship Specialty Start Date End Date Enmanuel Gan MD [address] [place] [address] PCP - General Internal Medicine 04/26/20 Tg Houston MD [address] [facility] [address] [place] [address] Consulting Physician Cardiology 07/18/20 Guerrero Hunter DPT [address] [facility] [address] [facility] [place], [place] [id number] Physical Therapist Physical Therapy 11/08/20 Guerrero Weiner, DIAMOND CLEAVER [address] [facility] [address] [place], [place] [id number] Uniform Maker Physical Therapy 12/12/20 documented as of this encounter
--- OUTSIDE RECORDS SUMMARY | 2024-07-12 08:50 | XMS_ITS | Encounter Summary ---
Author Organization [facility] Address [address] [facility] [address] [place] [address] Care Team Providers Care Hospital Laboratory Technician Name Role Phone Enmanuel Gan MD Primary Care Provider [phone] Tg Houston MD Unavailable [phone] Guerrero Hunter DPT Unavailable [phone] Guerrero Weiner INVESTMENT BANKER Unavailable [phone] Reason for Visit * Reason Onset Date Comments chest pain /in pt [facility] 03/26/2021 Encounter Details Date Type Department Care Team (Late st Contact Info) Description 03/26/2021 Telephone [facility] Cardiology [address] 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 Houston know she had chest pain yesterday and her PCP sent her to [facility]. She is currently in pt there having further testing done this afternoon. She wanted Dr. Pop to be aware. documented in this encounter Plan of Treatment Not on file documented as of this encounter Visit Diagnoses Not on filedocumented in this encounter Care Teams Hospital Laboratory Technician Relationship Specialty Start Date End Date Enmanuel Gan MD [address] [facility] [address] [place] [address] PCP - General Internal Medicine 04/26/20 Tg Houston MD [address] [facility] [address] [place] [address] Consulting Physician Cardiology 07/18/20 Guerrero Hunter DPT [address] [facility] [address] [address] Physical Therapist Physical Therapy 11/08/20 Guerrero Weiner, [facility] [address] [place], [place] [address] Labor Trainer Physical Therapy 12/12/20 documented as of this encounter
--- OUTSIDE RECORDS SUMMARY | 2024-07-12 08:50 | XMS_ITS | Encounter Summary ---
Author Organization [facility] Address [address] [address] Care Team Providers Care Pear Picker Name Role Phone Enmanuel Gan MD Primary Care Provider [phone] Tg Houston MD Unavailable [phone] Guerrero Hunter DPT Unavailable [phone] Guerrero Weiner WASTEWATER PROJECT MANAGER Unavailable [phone] Reason for Referral * Diagnostic Imaging (Routine) - Closed Specialty Diagnoses / Procedures Referred By Gigi orosco Referred To Contact Procedures LEXISCAN STRESS TEST REPORT [facility] Cardiology [facility] [address] [address] Phone: tel: fax: Referral ID Status Reason Start Date Expiration Date Visits Re quested Visits Authorized [id number] Closed 03/29/2021 04/28/2022 1 1 * Cardiology (Routine) - Closed Specialty Diagnoses / Procedures Referred By Contwolfgang orosco Referred To Contact Procedures ECG 12 lead [facility] Cardiology [address] [facility] [address] [address] Phone: tel: fax: Referral ID Status Reason Start Date Expiration Date Visits Re quested Visits Authorized [id number] Closed 03/29/2021 04/28/2022 1 1 * Cardiology (Routine) - Closed Specialty Diagnoses / Procedures Referred By Contac t Referred To Contact Procedures ECG 12 lead [facility] Cardiology [address] [place] [phone] Phone: tel: fax: Referral ID Status Reason Start Date Expiration Date Visits Re quested Visits Authorized [id number] Closed 03/29/2021 04/28/2022 1 1 * Cardiology (Routine) - Closed Specialty Diagnoses / Procedures Referred By Contac t Referred To Contact Procedures ECG 12 lead [facility] Cardiology [address] [place] [phone] Phone: tel: fax: Referral ID Status Reason Start Date Expiration Date Visits Re quested Visits Authorized [id number] Closed 03/29/2021 04/28/2022 1 1 Encounter Details Date Type Department Care Team (Late st Contact Info) Description 03/29/2021 Orders Only [facility] Cardiology [address] [place] [phone] Emmanuel Briones MD [address] [place] [address] Social History Tobacco Use Types Packs/Day Years [...] week 07/30/2020 How often do you attend [facility] or druze services? 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 Gender Identity Not on file Sexual Orientation Lesbian 05/24/2019 9: 06 AM CDT documented as of this encounter Plan of Treatment Not on file documented as of this encounter Procedures Procedure Name Priority Date/Time Associated Diagnosis Comments ECG 12-LEAD Routine 03/26/2021 LEXISCAN STRESS TEST REPORT Schedule Routine, Read Routine (OP Routine) 03/25/2021 CBC WITH AUTO DIFFERENTIAL Routine 03/25/2021 BNP - B-TYPE NATRIURETIC PEPTIDE Routine 03/25/2021 BMP - BASIC METABOLIC PANEL (7) Routine 03/25/2021 PT AND PTT Routine 03/25/2021 ECG 12-LEAD Routine 03/25/2021 ECG 12-LEAD Routine 03/25/2021 documented in this encounter Results * ECG 12 lead (03/26/2021) us Historical Provider ECG ORDERABLES Final Res ult * PT and PTT (03/25/2021) Result [facility] Provider LAB BLOOD ORDERABLES Geovanna l Result * CBC with Auto Differential (03/25/2021) Result [facility] Provider LAB BLOOD ORDERABLES Geovanna l Result * BNP - B-Type Natriuretic Peptide (03/25/2021) Result [facility] Provider LAB BLOOD ORDERABLES Geovanna l Result * BMP - Basic Metabolic Panel (7) (03/25/2021) Result [facility] Provider LAB BLOOD ORDERABLES Geovanna l Result * LEXISCAN STRESS TEST REPORT (03/25/2021) Anatomical Region Laterality Modality N/A Nuclear Medicine Result [facility] Provider IMG NM PROCEDURES Edited Result - Final * ECG 12 lead (03/25/2021) Result [facility] Provider ECG ORDERABLES Final Res ult * ECG 12 lead (03/25/2021) Result [facility] Provider ECG ORDERABLES Final Res ult documented in this encounter Visit Diagnoses Not on filedocumented in this encounter Care Teams Pear Picker Relationship Specialty Start Date End Date Enmanuel Gan MD [address] [facility] [address] [place] [address] PCP - General Internal Medicine 04/26/20 Tg Houston MD [address] [facility] [address] [place] [address] Consulting Physician Cardiology 07/18/20 Guerrero Hunter DPT [address] [facility] [address] [place] [address] Physical Therapist Physical Therapy 11/08/20 Guerrero Weiner, [facility] [address] [facility] [address] [place] [address] Icu Rn Physical Therapy 12/12/20 documented as of this encounter
--- OUTSIDE RECORDS SUMMARY | 2024-07-12 08:50 | XMS_ITS | Encounter Summary ---
Author Organization [facility] Address [address] [place] [address] Phone Care Team Providers Care [employer] Name Role Phone Enmanuel Gan MD Primary Care Provider [phone] Tg Houston MD Unavailable [phone] Guerrero Hunter DPT Unavailable [phone] Guerrero Weiner SCHOOL BUSINESS ADMINISTRATOR Unavailable [phone] Reason for Visit * Reason Onset Date Comments NSAID question 01/30/2021 Encounter Details Date Type Department Care Team (Late st Contact Info) Description 01/30/2021 Telephone [facility] Orthopaedic Surgery [address] [facility] [place] [facility] 6th [place] [address] [place] [address] Jeremy Michelle MD [facility] [place] [address] NSAID question Social History Tobacco Use Types Packs/Day Years [...] attend chur ch or congregation services? 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 Instructed patient Dr. Michelle prefers for patients to wait 9 months but if needed intermittently like 1-2 times a week for low dose ibuprofen, he is okay with that. Patient verbalized understanding. documented in this encounter Plan of Treatment Not on file documented as of this encounter Visit Diagnoses Not on filedocumented in this encounter Care Teams [employer] Relationship Specialty Start Date End Date Enmanuel Gan MD [address] [place] [address] PCP - General Internal Medicine 04/26/20 Tg Houston MD [address] [facility] [address] [place] [address] Consulting Physician Cardiology 07/18/20 Guerrero Hunter DPT [address] [facility] [address] [id number] Physical Therapist Physical Therapy 11/08/20 Guerrero Weiner, [facility] [address] [address] Integrity Manager Physical Therapy 12/12/20 documented as of this encounter
--- OUTSIDE RECORDS SUMMARY | 2024-07-12 08:50 | XMS_ITS | Encounter Summary ---
Author Organization [facility] Healthcare Address [address] [place] [address] Care Team Providers Care Design Teacher Name Role Phone Enmanuel Gan MD Primary Care Provider [phone] Tg Florentino MD Unavailable [phone] Guerrero Hunter DPT Unavailable [phone] Guerrero Weiner HAIRSPRING VIBRATOR Unavailable [phone] Reason for Visit * Auth/Cert Specialty Diagnoses / Procedures Referred By Gigi t Referred To Contact Diagnoses Heart block atrioventricular bradycardia Procedures N/A Referral ID Status Reason Start Date Expiration Date Visits Re quested Visits Authorized [id number] 1 1 Encounter Details Date Type Department Care Team (Latest Contact Info) Description 03/28/2021 8:53 PM CDT - 03/29/2021 6:44 PM CDT Hospital Encounter [facility] [address] [place] [address] Tg Florentino MD [address] [facility] [address] [place] [address] Discharge Disposition: Discharge to home or self [...] file Legal Sex Female 9:09 PM CAREER COORDINATOR Gender Identity Not on file Sexual Orientation Lesbian 05/24/2019 9: 06 AM CDT documented as of this encounter Last Filed Vital Signs Vital Sign Reading Time Taken Comments Blood Pressure 142/67 03/29/2021 12:17 PM CDT Pulse 70 03/29/2021 12:17 PM CDT Temperature 36.4 ??C (97.6 ??F) 03/29/2021 12:17 PM C DT Respiratory Rate 16 03/29/2021 12:17 PM CDT Oxygen Saturation 96% 03/29/2021 12:17 PM CDT Inhaled Oxygen Concentration - - Weight 74.4 kg (164 lb 1.6 oz) 03/28/2021 9:20 P M CDT Height 163.8 cm (5' 4.5 ) 03/28/2021 9:20 PM CDT Body Mass Index 27.73 03/28/2021 9:20 PM CDT documented in this encounter Discharge Summaries * Tg Florentino MD - 03/29/2021 3:20 PM CDT Physician Discharge Summary Patient ID: Citlaly Briseno [id number] 75 y.o. 1945 Admit date: 03/28/2021 Discharge date: 03/29/2021 Attending Physician: Tg Florentino MD Code Status: Full Code Disposition: Home Admission Diagnoses: Heart block atrioventricular Discharge Diagnoses: Principal Problem: Heart block atrioventricular Active Problems: Paroxysmal atrial fibrillation ([facility]/HCC) ([facility]) Microvascular angina ([facility]) ([facility]) Consults: Electrophysiology/Dr. Recio [facility] Course: The patient was admitted directly from home based on symptoms of exertional weakness and lightheadedness and after review of recent records showed alternating right and left bundle branch blocks and Mobitz 2 second- degree AV block, raising concern about the stability of her conduction system and raising concern that her recent symptoms may have been related to heart block. She was monitored on telemetry and did have examples of Mobitz 2 second-degree AV block but no complete heart block. She was seen in consultation by Dr. Recio of the electrophysiology service who was comfortable with her being discharged with a mobile outpatient cardiac telemetry device and with adjustment in her medications including discontinuation of flecainide and diltiazem. She will be readmitted in the near future for pacemaker implantation. An echocardiogram was done prior to discharge, results pending at the time of this dictation. Procedures performed during hospitalization: Echocardiogram Recent Diagnostics: Labs were not done because they had been done earlier this week during hospitalization at [facility] in [facility]. Discharged Condition: good Discharge Exam: General appearance: no distress Neck: no JVD Lungs: clear to auscultation bilaterally Heart: Rate: Normal rate Rhythm: regular Heart sounds: normal Extremities: no edema Neuro: Alert and oriented Discharge Medications: Your medication list CHANGE how you take these medications Instructions Last Dose Given Next Dose Due ALPRAZolam 0.25 mg tablet Commonly known as: XANAX What changed: Another medication with the same name was removed. Continue taking this medication, and follow the directions you see here. Co Q-10 100 mg capsule Generic drug: coenzyme Q10 What changed: ?? how to take this ?? when to take this take 1 Capsule by Oral route once fluticasone propionate 50 mcg/actuation nasal spray Commonly known as: FLONASE What changed: ?? how to take this ?? when to take this inhale 1 spray (50MCG) by intranasal route every day in each nostril triamterene-hydroCHLOROthiazide 37.5-25 mg per tablet/capsule Commonly known as: MAXZIDE,DYAZIDE What changed: when to take this TAKE ONE CAPSULE BY MOUTH ONCE DAILY vitamin b complex tablet What changed: when to take this take 1 Tablet by Oral route every day CONTINUE taking these medications Instructions Last Dose Given Next Dose Due ascorbic acid with indira hips 500 mg tablet,chewable Generic drug: ascorbic acid atorvastatin 20 mg tablet Commonly known as: LIPITOR calcium acetate(phosphat bind) 667 mg capsule Commonly known as: PHOSLO cholecalciferol 25 mcg (1,000 unit) tablet Commonly known as: VITAMIN D-3 cyanocobalamin 100 mcg tablet Commonly known as: Vitamin B-[address] 30 mg capsule Commonly known as: CYMBALTA DULoxetine DR 60 mg capsule Commonly known as: CYMBALTA fexofenadine-pseudoephedrine 60-120 mg per 12 hr tablet Commonly known as: THELMA-D magnesium citrate 100 mg tablet montelukast 10 mg tablet Commonly known as: SINGULAIR omega-3 fatty acids-fish oil 300-1,000 mg capsule potassium chloride ER 20 mEq CR tablet Commonly known as: KLOR-CON sucralfate 1 gram tablet Commonly known as: CARAFATE traMADoL 50 mg tablet Commonly known as: Ultram Take 1 tablet (50 mg total) by mouth every 6 (six) hours as needed for pain STOP taking these medications diltiazem 180 mg 24 hr capsule Commonly known as: TIAZAC Eliquis 5 mg tablet Generic drug: apixaban flecainide 100 mg tablet Commonly known as: TAMBOCOR ASK your doctor about these medications Instructions Last Dose Given Next Dose Due baclofen 10 mg tablet Commonly known as: LIORESAL Take 1 tablet (10 mg total) by mouth 2 (two) times a day Discharge instructions: No driving. Sedentary activities. Low-sodium low-fat diet. Follow-Up Care: Patient will be readmitted in the near future for pacemaker implantation. Signed: Tg Florentino MD 03/29/2021 documented in this encounter Discharge Instructions * Discharge Instructions* Tg Florentino MD - 03/29/2021 3:32 PM CDT No driving. Sedentary activities. Resume it usual diet (low-sodium, low-fat). documented in this encounter Medications at Time of Discharge atorvastatin (LIPITOR) 20 mg tabletIndication s:hyperlipidemia Take 1 tablet (20 mg total) by mouth nightly 07/29/2018 ALPRAZolam (XANAX) 0.25 mg tablet Take 0.25 mg by mouth nightly as needed (dizziness) 1 ascorbic acid (ascorbic acid with indira [...] ONCE DAILY 90 capsule 3 11/17/2019 3 senna-docusate (PERICOLACE) 8.6-50 mgIndications:co nstipation Take 2 tablets by mouth 2 (two) times a day for 14 days 56 tablet 07/29/2020 4 documented as of this encounter Discharge Disposition Disposition Code Departure Means Destination Discharge to home or self care documented in this encounter Progress Notes * Nathaniel Velasquez [facility] - 03/28/2021 10:46 PM CDT 03/28/21 @ 22:[address] Zapata. Telephone order for Sucralfate, KCL 20meq, and clarified orderfor Cymbalta 30mg + 60mg daily = 90mg dose B Eva [facility] * Nathaniel Velasquez [facility] - 03/28/2021 10:34 PM CDT Pharmacy Note - Admission Medication History Pharmacy reviewed medication history for Citlaly Briseno. Reviewed Med list provided by patient from [facility] . Completed medication history via patient supplied medication list. Medication(s) added: Sucralfate, KCL dose 20meq in medlist provided. 40meq in [facility] old med list . MD ordered 40meq Medication(s) removed: none Other information to note: See above Medication list updated and ready for admission reconciliation by provider. Nathaniel Velasquez prabhu 03/28/21 10:32 PM documented in this encounter Consult Notes * Ashvin Recio III, MD - 03/29/2021 9:14 AM CDTAssociated Order(s): IP CONSULT TO CARDIOLOGY Images from the original note were not included. [facility] Arrhythmia Center: Inpatient Consultation [facility] [address], [address] [place], [place] [address] Patient Name: Citlaly Briseno Date of : 1945 Primary Physician: Enmanuel Gan MD Admission Date: 03/28/2021 History Chief Complaint/Reason for Consultation Dyspnea HPI Ms. Briseno is a 75-year-old woman seen in consultation at the request of Dr. Florentino for evaluation of AV block and presyncope. Ms. Briseno has a history of microvascular angina and paroxysmal atrial fibrillation diagnosed last year. She was treated with flecainide and apixaban. Over the last several weeks, she has experiencedprogressive exertional dyspnea that has become distressing for her. She becomes short of breath with only moderate exertion, which is out of character for her. She does not have significant chest pain. She has also had episodes of lightheadedness and presyncope, primarily when changing from a sitting or supine position to a standing position. She has not had true syncope. She has not had abrupt syncope without a position change. She was seen by Dr. Florentino recently, and was found to have a left bundle branch block which is new. She was recently admitted to [facility] after experiencing a particularly severe episode of exertional dyspnea accompanied by diaphoresis. She underwent stress testing, which was reassuring.Her left ventricular ejection fraction was interpreted as normal. She was found to have right bundle branch block and Mobitz 2 av block. She was eventually discharged. She remained on flecainide at the time of discharge. After discharge, she continued to feel poorly. She contacted Dr. Florentino, who discussed the situation with myself. We advised admission for expedited evaluation and consideration of pacing. Currently, she feels OK at rest. She stoopped flecainide yesterday. Last dose of apixaban was yesterday morning. Past Medical History Past Medical History: Diagnosis [...] vesibular nerve ??? VESTIBULAR NERVE SECTION Left Family History Ms. Briseno's family history includes Hypertension in her mother; No Known Problems in her brother, father, father's brother, father's sister, maternal grandfather, maternal grandmother, mother's brother, mother's sister, paternal grandfather, paternal grandmother, and sister. Social History Ms. Briseno reports that she has never smoked. She has never used smokeless tobacco. She reports current alcohol use of about 5.0 standard drinks of alcohol per week. She reports previous drug use. Allergies Allergies Allergen Reactions ??? Adhesive Rash and Blisters Surgical tape ??? Chlorhexidine Rash ??? Sulfa (Sulfonamide Antibiotics) Hives and Rash ??? Gabapentin Other (See comments) Retain water Medications Current Facility-Administered Medications: ??? ALPRAZolam (XANAX) tablet 0.5 mg, 0.5 mg, oral, Nightly PRN, Bg Zapata MD ??? ascorbic acid (VITAMIN C) tablet/chewable tablet 500 mg, 500 mg, oral, Jodi CHAPA Stuart Taylor, MD ??? atorvastatin (LIPITOR) tablet 20 mg, 20 mg, oral, Nightly, Bg Zapata MD, 20 mg at 03/29/21 0011 ??? baclofen (LIORESAL) tablet 10 mg, 10 mg, oral, BID, Bg Zapata MD, 10 mg at 03/29/21 0011 ??? calcium acetate(phosphat bind) (PHOSLO) capsule 1,334 mg, 1,334 mg, oral, Jodi CHAPA Stuart Taylor, MD ??? cholecalciferol (VITAMIN D-3) tablet 1,000 Units, 1,000 Units, oral, Jodi CHAPA Stuart Taylor, MD ??? cyanocobalamin (Vitamin B-12) tablet 100 mcg, 100 mcg, oral, Jodi CHAPA Stuart Taylor, MD ??? DULoxetine DR (CYMBALTA) extended release capsule 30 mg, 30 mg, oral, Daily AND DULoxetine DR BARNESMBALTA) extended release capsule 60 mg, 60 mg, oral, Daily, Bg Zapata MD ??? montelukast (SINGULAIR) tablet 10 mg, 10 mg, oral, Nightly, Bg Zapata MD, 10 mg at03/29/21 001 ??? potassium chloride ER (KLOR-CON) extended release tablet 20 mEq, 20 mEq, oral, Daily, Bg Zapata MD ??? sucralfate (CARAFATE) tablet 2 g, 2 g, oral, BID PRN, Bg Zapata MD ??? triamterene-hydroCHLOROthiazide (MAXZIDE,DYAZIDE) 37.5-25 mg per tablet/capsule 1 tablet/capsule, 1 tablet/capsule, oral, Daily, Bg Zapata MD Current Facility-Administered Medications Medication Dose Route Frequency Provider Last Rate Last Admin ??? ALPRAZolam (XANAX) tablet 0.5 mg 0.5 mg oral Nightly PRN Bg Zapata MD ??? ascorbic acid (VITAMIN C) tablet/chewable tablet 500 mg 500 mg oral QAM Bg Zapata MD ??? atorvastatin (LIPITOR) tablet 20 mg 20 mg oral Nightly Bg Zapata MD 20 mg at 03/29/21 001 ??? baclofen (LIORESAL) tablet 10 mg 10 mg oral BID Bg Zapata MD 10 mg at 03/29/21 001 ??? calcium acetate(phosphat bind) (PHOSLO) capsule 1,334 mg 1,334 mg oral QAM Bg Zapata MD ??? cholecalciferol (VITAMIN D-3) tablet 1,000 Units 1,000 Units oral Bg Hurd MD ??? cyanocobalamin (Vitamin B-12) tablet 100 mcg 100 mcg oral Bg Hurd MD ??? DULoxetine DR LARA) extended release capsule 30 mg 30 mg oral Daily Bg Zapata MD And ??? DULoxetine DR LARA) extended release capsule 60 mg 60 mg oral Daily Bg Zapata MD ??? montelukast (SINGULAIR) tablet 10 mg 10 mg oral Nightly Bg Zapata MD 10 mg at 03/29/21 0011 ??? potassium chloride ER (KLOR-CON) extended release tablet 20 mEq 20 mEq oral Daily Bg Zapata MD ??? sucralfate (CARAFATE) tablet 2 g 2 g oral BID PRN Bg Zapata MD ??? triamterene-hydroCHLOROthiazide (MAXZIDE,DYAZIDE) 37.5-25 mg per tablet/capsule 1 tablet/capsule 1 tablet/capsule oral Daily Bg Zapata MD Review of Systems Constitutional: Negative for unintentional weight loss or new fatigue. HEENT: Negative for changes in hearing, pain with swallowing. Eyes: Negative for vision changes. Respiratory: Positive for dyspnea. Cardiovascular: Positive for presyncope. Gastrointestinal: Negative for abdominal pain or nausea/vomiting. Genitourinary: Negative for painful urination. Skin: Negative for new rashes/lesions. Neurological: Negative for new sensory or motor deficits. Psychiatric/Behavioral: Negative for significant changes in mood or behavior. Physical Examination BP 139/74 Pulse 66 Temp 36.3 ??C (97.3 ??F) (Oral) Resp 18 Ht 163.8 cm (5' 4.5 ) Wt 74.4 kg (164 lb 1.6 oz) SpO2 97% BMI 27.73 kg/m?? General: No acute distress. HEENT: Head atraumatic/normocephalic. Neck supple. Skin: No evident rashes. Eyes: No pallor or icterus. Pulmonary: Clear to auscultation bilaterally. Cardiovascular: Regular rate/rhythm. No murmurs/rubs. No JVD or lower extremity edema. Abdominal: Soft, non-tender. Pyschiatric: Normal affect/mood. Neurologic: Grossly nonfocal. Musculoskeletal: No gross deformity. No joint effusion. Diagnostic Data ECG: Personally interpreted 12 electrocardiogram from [facility]. Sinus rhythm with right bundle branch block and first-degree AV conduction delay. One nonconducted sinus beat, consistent withMobitz 2 av block. Telemetry/Monitor: Personally interpreted. Sinus rhythm throughout. Intermittent Mobitz 2 av block.No prolonged pauses. No high-grade AV block. Labs: Lab Results Component Value Date INR 1.1 2020 INR 1.2 07/25/2020 INR 1.08 07/07/2014 APTT 27 2020 APTT 30 07/25/2020 No results found for: TROPONINI, CKTOTAL, CKMB, CKMBINDEX, BNP, NTPROBNP No results found for: TSH, R0GCIXD, H7GGSXQ, FREET4, THYROIDAB Assessment and Plan 75-year-old woman admitted with progressive exertional dyspnea. Found to have alternating bundle branch block and Mobitz 2 AV block, occurring in the context of flecainide use for paroxysmal atrial fibrillation. It remains unclear to me to what extent the patient's conduction system disease contributes to her exertional limitations. She clearly has distal conduction system disease which is likely exacerbatedby flecainide (and diltiazem). She has not had any observed episodes of high-grade AV block or prolonged pauses. Her symptoms of lightheadedness and presyncope sound more consistent with orthostatic hypotension than bradyarrhythmia. I counseled the patient that she would most likely benefit from pacing in order to prevent symptomsassociated with high grade AV block, although I am not convinced that pacing will improve her exertional dyspnea. Ideally, the patient could be observed with ambulatory monitoring while flecainide washes out. Although I think she will require pacing, I do not think it is an emergency. Options include pacemaker implantation today versus discharge with ambulatory monitor and possible elective outpatient pacemaker. We are limited somewhat by laboratory capacity. I told patient we would assess our availability and discuss later today. Recommendations: 1. Transthoracic echocardiogram. 2. Stop flecainide. Stop diltiazem. 3. Strict telemetry monitoring. 4. Hold apixaban for now. 5. Will observe on telemetry this morning and assess schedule capabilities this afternoon. Keep NPOfor now. It was my pleasure to see Citlaly Briseno today in the hospital. Please do not hesitate to contactme with any questions or concerns regarding care. Sincerely, Ashvin Recio III, M.D. Cardiac Electrophysiology [facility] * Tg Florentino MD - 03/29/2021 8:57 AM CDT H&P Note Patient Name: Citlaly Briseno Date of : 1945 Primary Physician: Enmanuel Gan MD Admission Date: 03/28/2021 Length of Stay: 1 Chief Complaint Exertional intolerance; conduction system disease HPI Citlaly Briseno is a 75 y.o. female. This 75 y.o. female was in her usual state of health until approximately 10 days ago, when she noted that if she would exert herself she would experience shortness of breath, weakness, lightheadedness, and sweating. She initially attributed her symptoms to heat and humidity, but in fact was symptomatic inside as well as outside, with difficulty just making her bed or putting her clothes away. Hersymptoms progressed over the next several days and on 03/25/2021 after bringing a humming bird feeder in, filling it, and putting it back outside, she nearly collapsed. At that time she also had some vague sensation in her chest. She contacted her primary care physician who recommended that she go to the ER at [place], and from there she was admitted for an overnight stay. Electrocardiograms during that admission showed sinus rhythm with a right bundle branch block pattern and what appears to be Mobitz two second-degree AV block. This represents a significant change compared with an EKG on 01/14/2021 which showed sinus rhythm with first-degree AV block and a left bundle branch block. During her hospitalization she had a Lexiscan MPI which was reportedly nonischemic (I have not seen nuclearresults). She was discharged with reassurance on 03/26/21, but when she tried to resume her usual activities she was experiencing the same symptoms. She contacted me yesterday. I reviewed her recordsand had concerns about alternating left and right bundle and AV conduction, consulted informally with Dr. Recio, and had her directly admitted to telemetry. Overnight, she has had some second-degree AV block which appears to me to be Mobitz two. There has been no high-grade AV block and she has had no symptoms at bed rest. She has a long history of microvascular angina for which she has been on diltiazem. There has been no recent dose change. In June 2020 she was found to have paroxysmal atrial fibrillation managedwith Eliquis and flecainide. Flecainide was stopped yesterday and her last dose of Eliquis was the evening of 03/27/2021. She is treated for hypertension and dyslipidemia. Past Medical History Past Medical History: Diagnosis [...] nerve ??? VESTIBULAR NERVE SECTION Left Medications Home Meds: Medications Prior to Admission Medication Sig Dispense Refill Last Dose ??? ALPRAZolam (XANAX) 0.25 mg tablet Take 0.25 mg by mouth nightly as needed (dizziness) ??? ascorbic acid (ascorbic acid with indira hips) 500 mg tablet,chewable Take 500 mg by mouth every morning 03/28/2021 ??? atorvastatin (LIPITOR) 20 mg tablet Take 20 mg by mouth nightly 03/28/2021 ??? b complex vitamins tablet take 1 Tablet by Oral route every day (Patient taking differently: Take 1 tablet by mouth every morning ) 0 0 03/28/2021 ??? calcium acetate,phosphat bind, (PHOSLO) 667 mg capsule Take 1,334 mg by mouth every morning 03/28/2021 ??? cholecalciferol (VITAMIN D-3) 25 mcg (1,000 unit) tablet Take 1,000 Units by mouth every morning 03/28/2021 ??? coenzyme Q10 (CO Q-10) 100 mg capsule take 1 Capsule by Oral route once (Patient taking differently: Take 100 mg by mouth every morning ) 0 0 03/28/2021 ??? cyanocobalamin (Vitamin B-12) 100 mcg tablet Take 100 mcg by mouth every morning 03/28/2021 ??? diltiazem (TIAZAC) 180 mg 24 hr capsule Take 1 capsule (180 mg total) by mouth daily 90 capsule3 03/28/2021 ??? DULoxetine DR (CYMBALTA) 30 mg capsule Take 60 mg by mouth every morning 03/28/2021 ??? DULoxetine DR (CYMBALTA) 60 mg capsule Take 60 mg by mouth daily 03/28/2021 ??? Eliquis 5 mg tablet Take 5 mg by mouth every 12 (twelve) hours 03/28/2021 ??? fexofenadine-pseudoephedrine (THELMA-D) 60-120 mg per 12 hr tablet Take 1 tablet by mouth 2 (two) times a day as needed for allergies ??? flecainide (TAMBOCOR) 100 mg tablet Take 100 mg by mouth 2 (two) times a day 03/28/2021 ??? fluticasone (FLONASE) 50 mcg/actuation nasal spray inhale 1 spray (50MCG) by intranasal route every day in each nostril (Patient taking differently: Administer into each nostril nightly ) 0 03/28/2021 ??? magnesium citrate 100 mg tablet Take 1 tablet by mouth every morning 03/28/2021 ??? montelukast (SINGULAIR) 10 mg tablet Take 10 mg by mouth nightly 03/28/2021 ??? omega-3 fatty acids-fish oil 300-1,000 mg capsule Take 2 g by mouth every morning 03/28/2021 ??? potassium chloride ER 20 mEq CR tablet Take 40 mEq by mouth every morning 03/28/2021 ??? sucralfate (CARAFATE) 1 gram tablet Take 2 g by mouth 2 (two) times a day as needed ??? traMADoL (Ultram) 50 mg tablet Take 1 tablet (50 mg total) by mouth every 6 (six) hours as needed for pain 42 tablet 0 03/28/2021 ??? triamterene-hydroCHLOROthiazide 37.5-25 mg per capsule TAKE ONE CAPSULE BY MOUTH ONCE DAILY (Patient taking differently: Take 1 tablet/capsule by mouth every morning ) 90 capsule 3 03/28/2021 ??? ALPRAZolam (XANAX) 0.25 mg tablet Take 2 tablets (0.5 mg total) by mouth nightly as needed (dizziness) 60 tablet 0 ??? baclofen (LIORESAL) 10 mg tablet Take 1 tablet (10 mg total) by mouth 2 (two) times a day 90 tablet 1 Allergies Allergies Allergen Reactions ??? Adhesive Rash [...] and Family: Twice a week ??? Attends [employer] Services: Never ??? Active Member of Clubs or Organizations: No ??? Attends Club or Organization Meetings: Never ??? Marital Status: Intimate Partner Violence: ??? Fear of Current or Ex-Partner: Not on file ??? Emotionally Abused: Not on file ??? Physically Abused: Not on file ??? Sexually Abused: Not on file Review of Systems General: No fever, chills, malaise + fatigue Eyes: No alterations in visual acuity ENT: No alterations in auditory acuity, no sore throat Pulmonary: + dyspnea, no cough or hemoptysis Cardiac: + chest pain, orthopnea, PND or palpitations GI: No nausea, vomiting, diarrhea or constipation Musculoskeletal: No myalgias or arthralgias Skin: no rashes Neuro: No headaches, parathesias or focal neurological complaints Endocrine: No cold or heat intolerance Heme: no excessive bleeding or bruising Objective Vitals: 03/28/21 2120 03/29/21 0450 03/29/21 0855 BP: 128/69 150/74 139/74 BP Location: Right arm Right arm Patient Position: Sitting Lying Pulse: 85 74 66 Resp: 18 18 18 Temp: 36.2 ??C (97.2 ??F) 36.3 ??C (97.3 ??F) TempSrc: Oral Oral SpO2: 97% 100% 97% Weight: 74.4 kg (164 lb 1.6 oz) Height: 163.8 cm (5' 4.5 ) Body mass index is 27.73 kg/m??. General: Well appearing, No pain or distress, well nourished Eyes: AYUSH/EOMI, Conjuctiva Clear ENT: External ears/nose normal Neck: Supple Vascular: Carotid upstrokes brisk bilaterally and without bruits. Respiratory: Unlabored. Clear to ausculation bilaterally; no wheezing/rales/rhonchi. Cardiovascular: PMI is nondisplaced, S1S2 normal. No murmurs, rubs, gallops. Gastrointestinal: soft, non-tender abdomen : deferred Extremities: no cyanosis or clubbing or edema Musculoskeletal: no obvious joint deformities Skin: no obvious rash or bruising Psychiatric: normal affect Neurologic: awake/alert, no focal deficits Diagnostics EKG: Sinus rhythm with right bundle branch block Assessment/Plan * Heart block atrioventricular Assessment & Plan Recent EKGs as well as current rhythm strips demonstrate second-degree AV block. I do not see any lengthening of the OR interval prior to a nonconducted sinus beat, so I believe that this is Mobitz two, but will defer to Dr. Reico for his opinion. This is occurring on [...] is under consideration. Echocardiogram on 06/28/2020 at [facility] demonstrated an EF greater than 70%; will repeat. Paroxysmal atrial fibrillation (CMS/HCC) (HCC) Assessment & Plan Currently in sinus rhythm. Eliquis and flecainide are on hold. 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 She is currently asymptomatic. Recent Lexiscan reportedly nonischemic, although we are awaiting the official report. Tg Florentino MD 03/29/2021 documented in this encounter Nursing Notes * Jeannie Roberson RN - 03/29/2021 5:43 PM CDT Pt stable for d/c per production director. Outpatient tele programmed and will be brought up by environmental monitoring technician. Pt verbalizes readiness and compliance with d/c as an outpt plan. documented in this encounter Miscellaneous Notes * Result Encounter Note - Tg Florentino MD - 03/29/2021 6:44 PM CDT Event monitor looks good. There is no atrial fibrillation. There is no AV block. There is one very short run of ventricular tachycardia which did not cause any symptoms. There are some premature beats but nothing worrisome. I see that she is scheduled to undergo device implantation next month with Dr. Recio, and I will see her in June. * Plan of Care - Jeannie Roberson RN - 03/29/2021 5:38 PM CDT Problem: Health Behavior: Goal: Understanding of discharge needs will improve Outcome: Adequate for Discharge Problem: Cardiac: Goal: Ability to maintain an adequate cardiac output will improve Outcome: Adequate for Discharge Goal: Complications related to the disease process, condition or treatment will be avoided or minimized Outcome: Adequate for Discharge Goal: Hemodynamic stability will improve Outcome: Adequate for Discharge Goal: Risk factors for ineffective tissue perfusion will decrease Outcome: Adequate for Discharge Problem: Lack of Knowledge: Goal: Knowledge of the prescribed therapeutic regimen will improve Outcome: Adequate for Discharge Goal: Knowledge of disease or condition will improve Outcome: Adequate for Discharge Problem: Fluid Volume: Goal: Will show no signs or symptoms of fluid imbalance Outcome: Adequate for Discharge Goals: Clinical Goals for the Shift: NPO, vss, monitor labs, monitor continuous tele, control pain, remainfree from falls and injury, promote rest Summary: vss. Continuous tele monitoring in place; NSR. Pt remained NPO since midnight until bedside eco completed. Plans for a permanent pacemaker was cancelled. DC home with mati set for afterbedside testing completed. Pt remained very pleasant and positive for all of my shift. parking enforcement technician called and cardiac testing for home set up with a 30 day cardiac rehabilitation specialist. Will continue to monitor. * Assessment & Plan Note - Tg Florentino MD - 03/29/2021 8:53 AM CDT Associated Problem(s): Microvascular angina (HCC) Long history. She is currently asymptomatic. Recent Lexiscan reportedly nonischemic, although we are awaiting the official report. * Assessment & Plan Note - Tg Florentino MD - 03/29/2021 8:53 AM CDT Associated Problem(s): Paroxysmal atrial fibrillation (CMS/HCC) (HCC) Currently in sinus rhythm. Eliquis and flecainide are on hold. * Assessment & Plan Note - Tg Florentino MD - 03/29/2021 8:50 AM CDT Associated Problem(s): Heart block atrioventricular (Resolved 04/15/2021) Recent EKGs as well as current rhythm strips demonstrate second-degree AV block. I do not see any lengthening of the OR interval prior to a nonconducted sinus beat, [...] is under consideration. Echocardiogram on 06/28/2020 at [facility] demonstrated an EF greater than 70%; will repeat. * Plan of Care - Katherine Cee RN - 03/29/2021 4:01 AM CDT Problem: Health Behavior: Goal: Understanding of discharge needs will improve Outcome: Progressing Problem: Cardiac: Goal: Ability to maintain an adequate cardiac output will improve Outcome: Progressing Goal: Complications related to the disease process, condition or treatment will be avoided or minimized Outcome: Progressing Goal: Hemodynamic stability will improve Outcome: Progressing Goal: Risk factors for ineffective tissue perfusion will decrease Outcome: Progressing Problem: Lack of Knowledge: Goal: Knowledge of the prescribed therapeutic regimen will improve Outcome: Progressing Goal: Knowledge of disease or condition will improve Outcome: Progressing Problem: Fluid Volume: Goal: Will show no signs or symptoms of fluid imbalance Outcome: Progressing Goals: Clinical Goals for the Shift: VSS, NPO after midnight for possible pacemaker placement. Adequate pain control and rest. Keep free from fall or injury. Summary: VSS, remains NPO this am for possible pacemaker placement. No c/o pain through the night. Slept intermittently and remains free from fall or injury. documented in this encounter Plan of Treatment Not on file documented as of this encounter Procedures Procedure Name Priority Date/Time Associated Diagnosis Comments EVENT MONITOR Routine 03/29/2021 6:16 PM CDT TRANSTHORACIC ECHO (TTE) COMPLETE W DOPPLER/CF W CONTRAST Routine 03/29/2021 5:07 PM CDT documented in this encounter Results * Event Monitor, 30 Day Event (03/29/2021 6:16 PM CDT) Anatomical Region Laterality Modality Electrocardiogra phy 04/27/2021 5:00 AM CDT Narrative 05/01/2021 1:26 PM CDT [facility] [address] [place] [address] Event MONITOR Patient Name: CITLALY BRISENO G : 1945 Study Date: 04/27/2021 5:00:00 AM Gender: F Tech: Location: [address] Ref.Provider: TG FLORENTINO Height(Cm): BSA: Weight(Kg): Order Provider: TG FLORENTINO Procedures: Event Monitor Report: Event Monitor. Indications: Apical hypertrophic cardiomyopathy, conduction system disease, PAF. Findings: Protocol: Recording Duration (Ordered): 30 days. Number of Diary entries: 3. Study Quality: Study quality is good. Interpretation: The basic rhythm is sinus with an intraventricular conduction delay. The heart rate ranges from 50 to 163 (VT) beats per minute, with an average heart rate of 80 beats per minute. There is no atrial fibrillation. There are no significant pauses. Ventricular ectopics are rare, comprising less than 0.2% of all beats. There is one five beat run of ventricular tachycardia at a rate of 163 on 04/24/2021 at 6:44 p.m. Supraventricular ectopics are frequent, comprising 7% of all beats and including two runs of supraventricular tachycardia up to 21 beats in duration at a maximal rate of 148. Symptoms of chest pain corresponded with sinus rhythm at rates of 75 and 102 with PACs. Conclusions: 1. Sinus rhythm with intraventricular conduction delay. No AV block. 2. No atrial fibrillation. 3. Rare PVCs including one five beat run of ventricular tachycardia, asymptomatic. 4. Frequent PACs, including two runs of nonsustained supraventricular tachycardia, asymptomatic. 5. Rare symptoms of chest pain corresponding with sinus rhythm with PACs. Electronically Signed By: Tg Florentino MD, [facility] 2021-05-01 13:26:29 CDT CC: CC: Procedure Note Tg Florentino MD - 05/01/2021 [facility] [address] [place] [address] Event MONITOR Patient Name: CITLALY BRISENO GPatient ID: [id number] : [id number] Date: 04/27/2021 5:00:00 AM Gender: FAccession #: [id number] Tech: Location: [id number] Ref.Provider: Wm FLORENTINO(Cm): BSA: Weight(Kg): Order Provider: TG FLORENTINO Procedures: Event Monitor Report: Event Monitor. Indications: Apical hypertrophic cardiomyopathy, conduction system disease, PAF. Findings: Protocol: Recording Duration (Ordered): 30 days. Number of Diary entries: 3. Study Quality: Study quality is good. Interpretation: The basic rhythm is sinus with an intraventricular conduction delay. Theheart rate ranges from 50 to 163 (VT) beats per minute, with an average heart rate of80 beats per minute. There is no atrial fibrillation. There are no significant pauses. Ventricular ectopics are rare, comprising less than 0.2% of all beats.There is one five beat run of ventricular tachycardia at a rate of 163 on 04/24/2021 at 6:44p.m. Supraventricular ectopics are frequent, comprising 7% of all beats andincluding two runs of supraventricular tachycardia up to 21 beats in duration at a maximalrate of 148. Symptoms of chest pain corresponded with sinus rhythm at rates of 75 [id number] with PACs. Conclusions: 1. Sinus rhythm with intraventricular conduction delay. No AV block. 2. No atrial fibrillation. 3. Rare PVCs including one five beat run of ventricular tachycardia,asymptomatic. 4. Frequent PACs, including two runs of nonsustained supraventriculartachycardia, asymptomatic. 5. Rare symptoms of chest pain corresponding with sinus rhythm withPACs. Electronically Signed By: Tg Florentino MD, [facility] 2021-05-01 13:26:29 CDT CC: CC: us Tg Florentino MD CV CARDIAC SERVICES PROCEDU RES Final Result * TRANSTHORACIC ECHO (TTE) COMPLETE W DOPPLER/CF W CONTRAST (03/29/2021 5:07 PM CDT) Anatomical Region Laterality Modality Ultrasound 03/29/2021 3:58 PM CDT Narrative 03/29/2021 5:39 PM CDT [facility] [address] [place] [address] ECHOCARDIOGRAM Patient Name: CITLALY BRISENO : 1231-1945 Study Date: 03/29/2021 3:58:58 PM Gender: F Tech: [facility] Location: [id number] Ref.Provider: TG FLORENTINO Height(Cm): 163 BSA: 1.84 Weight(Kg): 74.4 BP: 142/67Order Provider: TG FLORENTINO - Procedures: Echocardiographic Report: Transthoracic Echocardiogram with 2D, M-Mode, Spectral and Color Flow Doppler examination and administration of intravenous contrast. Indications: Second degree AV block, and Dyspnea. Measurements: 2D/M Mode ? Doppler ? Measurement ?Value ?Normal Range ?Measurement ?Value ?Normal Range ? IVSd 2D ?1.27 ? [ 0.60 - 0.90 ] cm ?AV Peak Wagner ?1.2 ?[ 1.0 - 1.7 ] m/s ? LVIDd 2D ? 4.03 ? [ 3.90 - 5.30 ] cm ?AV Peak PG ? 6 ?[ 2 - 9 ] mmHg ? LVIDs 2D ? 2.49 ? [ 2.30 - 3.90 ] cm ?AV Mean PG ? 3 ?[ 2 - 4 ] mmHg ? LVPWd 2D ? 1.26 ? [ 0.60 - 1.00 ] cm ?AV VTI ? 25.5 ? cm ? Estimated EF ? 80.00 ?% ? MAT VTI ?3.0 ?[ 2.0 - 4.0 ] cm2 ? LA Dimension 2D ?3.65 ? [ 2.70 - 3.80 ] cm ?LVOT Peak Wagner ?1.09 ? [ 0.70 - 1.10 ] m/s ? AoR Diam 2D ?2.98 ? [ 2.60 - 3.70 ] cm ?LVOT Diam ?2.0 ?[ 1.7 - 2.1 ] cm ? TAPSE ?1.11 ? [ 1.60 - 3.00 ] cm ?LVOT Peak PG ? 5 ?[ 2 - 6 ] mmHg ?LVOT VTI ? 25.3 ? [ 20.0 - 30.0 ] cm ?MV Peak PG ? 2 ?[ 1 - 10 ] mmHg ?MV Mean PG ? 1 ?[ <= 5 ] mmHg ?MV E Peak Wagner ?0.6 ?[ 0.6 - 1.3 ] m/s ?MV A Peak Wagner ?0.7 ?[ 1.0 - 1.2 ] m/s ?MV PHT ? 88.4 ? [ 20.0 - 100.0 ] ms ?MV Decel Time ?249.6 ?[ 104.0 - 258.0 ] ms ?MVA PHT ?2.5 ?[ 2.0 - 4.0 ] ms ?MV E/A Ratio ? 0.9 ?TR Peak Wagner ?2.4 ?[ 1.0 - 2.8 ] m/s ?TR Peak PG ? 24 ? mmHg ?RVSP ? 26.5 ? [ 10.0 - 36.0 ] mmHg ?RA Pressure ?3.0 ?mmHg ?PV Peak Wagner ?1.4 ?[ 0.4 - 0.8 ] m/s ?PV Peak PG ? 7 ?mmHg ?Lat E` Wagner ? 0.05 ? [ 0.10 - 0.15 ] m/s ?Sept E' Wagner ?0.03 ? [ 0.08 - 0.15 ] m/s ?E/E` ? 12.00 ?RV S' ?0.12 ? m/s ? - Findings: Study Quality: Technically difficult study. Contrast was employed for LV opacification and endocardial border enhancement. BP: Blood pressure: 142/67 mmHg. Left Ventricle: LV systolic function is hyperdynamic, particularly the apex which demonstates systolic obliteration, strongly suggestive of apical hypertrophy cardiomyopathy. Ejection Fraction is estimated at 80 %. Diastolic indices overall most consistent with Grade II diastolic dysfunction (impaired myocardial relaxation with elevated filling pressures). Normal left ventricular cavity size. Moderate concentric left ventricular hypertrophy. Right Ventricle: Normal right ventricular systolic function. Normal right ventricular size. Left Atrium: The left atrium is normal in size. Right Atrium: The right atrium is normal in size. Atrial Septum: Normal appearing atrial septum. Mitral Valve: Normal appearance of the mitral valve leaflets. Mild mitral valve regurgitation. Aortic Valve: Normal aortic valve appearance and function. Aortic valve appears tricuspid in configuration. Tricuspid Valve: Normal tricuspid valve appearance and function. Pulmonic Valve: Normal appearance and function of the pulmonic valve. Pericardium: Normal appearing pericardial thickness. No significant pericardial effusion. Aortic Root and Aorta: The sinuses of Valsalva are normal. Normal caliber aortic root. Normal sized ascending aorta. Normal sized descending aorta. Aortic Arch: Normal caliber aortic arch. IVC: Normal appearance of the inferior vena cava. Conclusions: 1. LV systolic function is hyperdynamic, particularly the apex which demonstates systolic obliteration, strongly suggestive of apical hypertrophy cardiomyopathy. Ejection Fraction is estimated at 80 %. Diastolic indices overall most consistent with Grade II diastolic dysfunction (impaired myocardial relaxation with elevated filling pressures). Normal left ventricular cavity size. Moderate concentric left ventricular hypertrophy. Electronically Signed By: Tg Florentino MD, [facility] 2021-03-29 17:39:23 CDT CC: CC: Procedure Note Tg Florentino MD - 03/29/2021 [facility] [address] [place] [address] ECHOCARDIOGRAM Patient Name: CITLALY BRISENOPatient ID: [id number] : [id number] Date: 03/29/2021 3:58:58 PM Gender: FAccession #: [id number] Tech: LORLocation: [id number] Ref.Provider: Wm FLORENTINO(Cm): 163 BSA: 1.84Weight(Kg): 74.4 BP: 142/67Order Provider: TG FLORENTINO - Procedures: Echocardiographic Report: Transthoracic Echocardiogram with 2D, M-Mode, Spectral and Color FlowDoppler examination and administration of intravenous contrast. Indications: Second degree AV block, and Dyspnea. Measurements: 2D/M Mode Doppler Measurement Value Normal Range Measurement ValueNormal Range IVSd 2D 1.27 [ 0.60 - 0.90 ] cm AV Peak Wagner 1.2[ 1.0 - 1.7 ] m/s LVIDd 2D 4.03 [ 3.90 - 5.30 ] cm AV Peak PG 6[ 2 - 9 ] mmHg LVIDs 2D 2.49 [ 2.30 - 3.90 ] cm AV Mean PG 3[ 2 - 4 ] mmHg LVPWd 2D 1.26 [ 0.60 - 1.00 ] cm AV VTI 25.5cm Estimated EF 80.00 % MAT VTI 3.0[ 2.0 - 4.0 ] cm2 LA Dimension 2D 3.65 [ 2.70 - 3.80 ] cm LVOT Peak Wagner 1.09[ 0.70 - 1.10 ] m/s AoR Diam 2D 2.98 [ 2.60 - 3.70 ] cm LVOT Diam 2.0[ 1.7 - 2.1 ] cm TAPSE 1.11 [ 1.60 - 3.00 ] cm LVOT Peak PG 5[ 2 - 6 ] mmHg LVOT VTI 25.3[ 20.0 - 30.0 ] cm MV Peak PG 2[ 1 - 10 ] mmHg MV Mean PG 1[ <= 5 ] mmHg MV E Peak Wagner 0.6[ 0.6 - 1.3 ] m/s MV A Peak Wagner 0.7[ 1.0 - 1.2 ] m/s MV PHT 88.4[ 20.0 - 100.0 ] ms MV Decel Time 249.6[ 104.0 - 258.0 ] ms MVA PHT 2.5[ 2.0 - 4.0 ] ms MV E/A Ratio 0.9 TR Peak Wagner 2.4[ 1.0 - 2.8 ] m/s TR Peak PG 24mmHg RVSP 26.5[ 10.0 - 36.0 ] mmHg RA Pressure 3.0mmHg PV Peak Wagner 1.4[ 0.4 - 0.8 ] m/s PV Peak PG 7mmHg Lat E` Wagner 0.05[ 0.10 - 0.15 ] m/s Sept E' Wagner 0.03[ 0.08 - 0.15 ] m/s E/E` 12.00 RV S' 0.12m/s - Findings: Study Quality: Technically difficult study. Contrast was employed for LV opacificationand endocardial border enhancement. BP: Blood pressure: 142/67 mmHg. Left Ventricle: LV systolic function is hyperdynamic, particularly the apex whichdemonstates systolic obliteration, strongly suggestive of apical hypertrophy cardiomyopathy.Ejection Fraction is estimated at 80 %. Diastolic indices overall most consistent with GradeII diastolic dysfunction (impaired myocardial relaxation with elevated fillingpressures). Normal left ventricular cavity size. Moderate concentric left ventricularhypertrophy. Right Ventricle: Normal right ventricular systolic function. Normal right ventricularsize. Left Atrium: The left atrium is normal in size. Right Atrium: The right atrium is normal in size. Atrial Septum: Normal appearing atrial septum. Mitral Valve: Normal appearance of the mitral valve leaflets. Mild mitral valveregurgitation. Aortic Valve: Normal aortic valve appearance and function. Aortic valve appearstricuspid in configuration. Tricuspid Valve: Normal tricuspid valve appearance and function. Pulmonic Valve: Normal appearance and function of the pulmonic valve. Pericardium: Normal appearing pericardial thickness. No significant pericardialeffusion. Aortic Root and Aorta: The sinuses of Valsalva are normal. Normal caliber aortic root. Normalsized ascending aorta. Normal sized descending aorta. Aortic Arch: Normal caliber aortic arch. IVC: Normal appearance of the inferior vena cava. Conclusions: 1. LV systolic function is hyperdynamic, particularly the apex whichdemonstates systolic obliteration, strongly suggestive of apical hypertrophy cardiomyopathy.Ejection Fraction is estimated at 80 %. Diastolic indices overall most consistent with GradeII diastolic dysfunction (impaired myocardial relaxation with elevated fillingpressures). Normal left ventricular cavity size. Moderate concentric left ventricularhypertrophy. Electronically Signed By: Tg Florentino MD, [facility] 2021-03-29 17:39:23 CDT CC: CC: Tg Florentino MD CV ECHO PROCEDURES Final Re sult documented in this encounter Visit Diagnoses Diagnosis Heart block atrioventricular- Primary Unspecified atrioventricular block Paroxysmal atrial fibrillation (CMS/HCC) (HCC) Atrial fibrillation Microvascular angina (HCC) documented in this encounter Admitting Diagnoses Diagnosis Heart block atrioventricular Unspecified atrioventricular block documented in this encounter Administered Medications Inactive Administered Medications - up to 3 most recent administrations Medication Order MAR Action Action Date Dose Rate Site atorvastatin (LIPITOR) tablet 20 mg 20 mg, oral, Nightly, First dose on Thu03/28/21 at 2230, Indications: hyperlipidemiaIndications:hype rlipidemia Given 03/29/2021 12:11 AM CDT 20 mg baclofen (LIORESAL) tablet 10 mg 10 mg, oral, 2 times daily, First dose on Thu03/28/21 at 2230 Given 03/29/2021 12:11 AM CDT [address] (CYMBALTA) extended release capsule 30 mg 30 mg, oral, Daily, First dose on Thu03/29/21 at 0900, Capsule may be opened and contents mixed with applesauce or apple juice ONLY. Do not crush, chew, cut, dissolve, open or otherwise manipulate tablet/capsule. DULoxetine DR (CYMBALTA) extended release capsule 60 mg 60 mg, oral, Daily, First dose on Thu03/29/21 at 0900, Capsule may be opened and contents mixed with applesauce or apple juice ONLY. Do not crush, chew, cut, dissolve, open or otherwise manipulate tablet/capsule. montelukast (SINGULAIR) tablet 10 mg 10 mg, oral, Nightly, First dose on Thu03/28/21 at 2230, Indications: Seasonal Allergic RhinitisIndications:Seasonal Allergic Rhinitis Given 03/29/2021 12:11 AM CDT 10 mg perflutren protein-a (OPTISON) 3 mL in sodium chloride 0.9% 8 mL syringe 1-8 mL, intravenous, Once in imaging, contrast, Starting on Thu03/29/21 at 1706, For 1 dose, Intra-Procedure (CV) Contrast Given 03/29/2021 5:07 PM CDT 3 mL potassium chloride ER (KLOR-CON) extended release tablet 20 mEq 20 mEq, oral, Daily, First dose on Thu03/29/21 at 0900, Do not crush, chew, cut, dissolve, open or otherwise manipulate tablet/capsule. sucralfate (CARAFATE) tablet 2 g 2 g, oral, 2 times daily PRN, GERD, Starting on Thu03/28/21 at 2240 documented in this encounter Discontinued Medications Medication Sig Discontinue Reason Start Date End Da te flecainide (TAMBOCOR) 100 mg tablet Take 100 mg by mouth 2 (two) times a day Stop Taking at Discharge 06/29/2020 03/29/2021 diltiazem (TIAZAC) 180 mg 24 hr capsule Take 1 capsule (180 mg total) by mouth daily Stop Taking at Discharge 2020 03/29/2021 Eliquis 5 mg tablet Take 5 mg by mouth every 12 (twelve) hours Stop Taking at Discharge 08/28/2020 03/29/2021 baclofen (LIORESAL) 10 mg tabletIndications:Post -operative pain Take 1 tablet (10 mg total) by mouth 2 (two) times a day Stop Taking at Discharge 10/17/2020 03/29/2021 ALPRAZolam (XANAX) 0.25 mg tabletIndications:ears Take 2 tablets (0.5 mg total) by mouth nightly as needed (dizziness) Stop Taking at Discharge 01/07/2021 03/29/2021 documented as of this encounter Historical Medications * This list may reflect changes made after this encounter. sucralfate (CARAFATE) 1 gram tablet Take 2 tablets (2 g total) by mouth 2 (two) times a day as needed 4 fexofenadine-pse udoephedrine (THELMA-D) 60-120 mg per 12 hr tabletIndication s:Allergic Rhinitis Take 1 tablet by mouth 2 (two) times a day as needed for allergies 4 ALPRAZolam (XANAX) 0.25 mg tablet Take 0.25 mg by mouth nightly as needed (dizziness) 1 added in this encounter Active and Recently Administered Medications Times are shown in CDT. Scheduled Medication Order 03/27/2021 03/28/2021 03/29/2021 ascorbic acid (VITAMIN C) tablet/chewable tablet 500 mg 500 mg, oral, Every morning, First dose on Thu03/29/21 at 0900, Indications: Vitamin C Deficiency 0900 (Not Given - Pr ovider: Jeannie Roberson RN - Reason: NPO) atorvastatin (LIPITOR) tablet 20 mg 20 mg, oral, Nightly, First dose on Thu03/28/21 at 2230, Indications: hyperlipidemia 0011 (Given - Provid er: Katherine Cee RN) baclofen (LIORESAL) tablet 10 mg 10 mg, oral, 2 times daily, First dose on Thu03/28/21 at 2230 0011 (Given - Provid er: Katherine Cee RN)0900 (Not Given - Provider: Jeannie Roberson RN - Reason: NPO) calcium acetate(phosphat bind) (PHOSLO) capsule 1,334 mg 1,334 mg, oral, Every morning, First dose on Thu03/29/21 at 0900, Take with food, Indications: supplement 900 (Not Given - Pr ovider: Jeannie Roberson RN - Reason: NPO) cholecalciferol (VITAMIN D-3) tablet 1,000 Units 1,000 Units, oral, Every morning, First dose on Thu03/29/21 at 0900, Indications: Vitamin D Deficiency 900 (Not Given - Pr ovider: Jeannie Roberson RN - Reason: NPO) cyanocobalamin (Vitamin B-12) tablet 100 mcg 100 mcg, oral, Every morning, First dose on Thu03/29/21 at 0900, Indications: Prevention of Vitamin B12 Deficiency 900 (Not Given - Pr ovider: Jeannie Roberson RN - Reason: NPO) DULoxetine DR (CYMBALTA) extended release capsule 30 mg(Linked Group 1) 30 mg, oral, Daily, First dose on Thu03/29/21 at 0900, Capsule may be opened and contents mixed with applesauce or apple juice ONLY. Do not crush, chew, cut, dissolve, open or otherwise manipulate tablet/capsule. 900 (Not Given - Pr ovider: Jeannie Roberson RN - Reason: NPO) DULoxetine DR (CYMBALTA) extended release capsule 60 mg(Linked Group 1) 60 mg, oral, Daily, First dose on Thu03/29/21 at 0900, Capsule may be opened and contents mixed with applesauce or apple juice ONLY. Do not crush, chew, cut, dissolve, open or otherwise manipulate tablet/capsule. 903 (Not Given - Pr ovider: Jeannie Roberson RN - Reason: NPO) montelukast (SINGULAIR) tablet 10 mg 10 mg, oral, Nightly, First dose on Thu03/28/21 at 2230, Indications: Seasonal Allergic Rhinitis 0011 (Given - Provid er: Katherine Cee RN) potassium chloride ER (KLOR-CON) extended release tablet 20 mEq 20 mEq, oral, Daily, First dose on Thu03/29/21 at 0900, Do not crush, chew, cut, dissolve, open or otherwise manipulate tablet/capsule. 903 (Not Given - Pr ovider: Jeannie Roberson RN - Reason: NPO) triamterene-hydroCHLOROthiazide (MAXZIDE,DYAZIDE) 37.5-25 mg per tablet/capsule 1 tablet/capsule 1 tablet/capsule, oral, Daily, First dose on Thu03/29/21 at 0900 0905 (Not Given - Pr ovider: Jeannie Roberson RN - Reason: NPO) PRN Medication Order 03/27/2021 03/28/2021 03/29/2021 ALPRAZolam (XANAX) tablet 0.5 mg 0.5 mg, oral, Nightly PRN, dizziness, Starting on Thu03/28/21 at 2148, Indications: ears perflutren protein-a (OPTISON) 3 mL in sodium chloride 0.9% 8 mL syringe (COMPLETED) 1-8 mL, intravenous, Once in imaging, contrast, Starting on Thu03/29/21 at 1706, For 1 dose, Intra-Procedure (CV) 1707 (Contrast Given - Provider: Carina Maharaj RDCS - Comment: given by nurse [place]) sucralfate (CARAFATE) tablet 2 g 2 g, oral, 2 times daily PRN, GERD, Starting on Thu03/28/21 at 2240 Linked Groups Order Group 1: DULoxetine DR (CYMBALTA) extended release capsule 30 mgJump to med 30 mg, oral, Daily, First dose on Thu03/29/21 at 0900, Capsule may be opened and contents mixed with applesauce or apple juice ONLY. Do not crush, chew, cut, dissolve, open or otherwise manipulate tablet/capsule. And DULoxetine (PATRICAMBALTA) extended release capsule 60 mgJump to med 60 mg, oral, Daily, First dose on Thu03/29/21 at 0900, Capsule may be opened and contents mixed with applesauce or apple juice ONLY. Do not crush, chew, cut, dissolve, open or otherwise manipulate tablet/capsule. documented in this encounter Orders Medications Ordered That Tyrone ht Not Have Been Administered Count Last Ordered Date First Ordered Date ALPRAZolam (XANAX) tablet 0.5 mg 1 03/28/20 21 ascorbic acid (VITAMIN C) ta blet/chewable tablet 500 mg 1 03/28/2021 calcium acetate(phosphat bin d) (PHOSLO) capsule 1,334 mg 1 03/28/2021 cholecalciferol (VITAMIN D-3 ) tablet 1,000 Units 1 03/28/2021 cyanocobalamin (Vitamin B-12 ) tablet 100 mcg 1 03/28/2021 DULoxetine (PATRICAMBALTA) ext ended release capsule 30 mg 1 03/28/2021 DULoxetine (CYMBALTA) ext ended release capsule 60 mg 3 03/28/2021 potassium chloride ER (KLOR- CON) extended release tablet 20 mEq 1 03/28/2021 potassium chloride ER (KLOR- CON) extended release tablet 40 mEq 1 03/28/2021 sucralfate (CARAFATE) tablet 2 g 1 03/28/20 21 triamterene-hydroCHLOROthiaz josephine (MAXZIDE,DYAZIDE) 37.5-25 mg per tablet/capsule 1 tablet/capsule 1 03/28/2021 Nursing Count Last Ordered Date First Orde red Date TELEMETRY MONITORING 1 03/28/2021 Consult Count Last Ordered Date First Orde red Date IP CONSULT TO CARDIOLOGY 1 03/29/2021 Admission Count Last Ordered Date First Orde red Date INITIATE OBSERVATION SERVICES 1 04/02/2021 ADMIT TO INPATIENT 1 03/28/2021 Discharge Count Last Ordered Date First Orde red Date DISCHARGE PATIENT 1 03/29/2021 CORE MEASURES Count Last Ordered Date First Ord ered Date REASON FOR NO VTE PROPHYLAXIS AT ADMISSION 1 03/28/2021 documented in this encounter Care Teams Design Teacher Relationship Specialty Start Date End Date Enmanuel Gan MD [address] [place] [address] PCP - General Internal Medicine 04/26/20 Tg Florentino MD [address] [facility] [address] [place] [address] Consulting Physician Cardiology 07/18/20 Guerrero Hunter DPT [address] [facility] [address] [facility] [place] [address] Physical Therapist Physical Therapy 11/08/20 Guerrero Weiner, [facility] [id number] [place], [place] [id number] Network Developer Physical Therapy 12/12/20 documented as of this encounter
--- OUTSIDE RECORDS SUMMARY | 2024-07-12 08:50 | XMS_ITS | Encounter Summary ---
Author Organization [facility] Address [address] [place] [address] Phone Care Team Providers Care Assessment Coordinator Name Role Phone Enmanuel Gan MD Primary Care Provider [phone] Tg Houston MD Unavailable [phone] Guerrero Hunter DPT Unavailable [phone] Guerrero Weiner PTA Unavailable [phone] Reason for Visit * Reason Comments PT Treatment * Consultation (Routine) - Closed Specialty Diagnoses / Procedures Referred By Contac t Referred To Contact Physical Therapy Diagnoses Post-operative pain S/P spinal fusion Jeremy Michelle MD [address] [facility] [address] [place] [address] Phone: tel: fax: [facility] (All Locations) Referral ID Status Reason Start Date Expiration Date V isits Requested Visits Authorized [id number] Closed Specialty Services Required 11/02/2020 11/02/2021 24 24 Encounter Details Date Type Department Care Team (Late st Contact Info) Description 02/07/2021 11:15 AM CDT Therapy [facility] Physical Therapy [address] [facility] 1st Floor [address] [place] [address] Guerrero Hunter DPRoshni [address] [facility] [address] [facility] [place] [id number] Post-operative pain (Primary Dx); Chronic bilateral low [...] any clubs o r organizations such as quaker groups, unions, fraternal or athletic groups, or [...] on file Legal Sex Female 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 Post-operative [...] Subjective: Patient states that she is doing okay. No significant changes since the previous visit.She will undergo a diagnostic injection of the SIJ next week. 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 HEP THERAPEUTIC EXERCISE Parameters Comments VR x Supine low ab activation with unilateral hip flexion x sidelying hip abd/LR 1-3 second hold per rep 2 pillows between knees 2-3 folded towels under lumbar spine x x Sitting knee extension Seated in a [...] over door Neutral spine Standing hip hinge Manual Therapy New x leukotape to SIJ X-tape 4 strips each [...] ADLs Patient requests emails be sent to: [email or web address] Assessment: Pt presents with fair technique with exercises/activities and required minimal cues to engage gluts, to engage abdominals, for proper direction of movement and for set up and technique to prevent compensatory movement, to prevent excessive lumbopelvic rotation, to prevent excessive lumbopelvic extension and to increase intended muscle recruitment. Patient was educated on the risks and benefits ofleukotape, specifically in regards to correction for instability of the SIJ. Patient provided verbal consent prior to tape application. No increase in symptoms this visit. Reviewed [...] sciatica documented in this encounter Care Teams Assessment Coordinator Relationship Specialty Start Date End Date Enmanuel Gan MD [address] INTERNAL MEDICINE [place], [place] [id number] PCP - General Internal Medicine 04/26/20 Tg Houston MD [address] [facility] [address] [place] [address] Consulting Physician Cardiology 07/18/20 Guerrero Hunter DPT [address] [facility] [address] [place] [address] Physical Therapist Physical Therapy 11/08/20 Guerrero Weiner, [facility] [address] [facility] [address] [place] [address] Winding Lathe Operator Physical Therapy 12/12/20 documented as of this encounter
--- OUTSIDE RECORDS SUMMARY | 2024-07-12 08:51 | XMS_ITS | Encounter Summary ---
Author Organization [facility] Address [address] [place] [address] Phone Care Team Providers Care Ager Operator Name Role Phone Enmanuel Gan MD Primary Care Provider [phone] Tg [place] MD Unavailable [phone] Guerrero Hunter DPT Unavailable [phone] Reason for Visit * Reason Comments PT Treatment * Consultation (Routine) - Closed Specialty Diagnoses / Procedures Referred By Gigi t Referred To Contact Physical Therapy Diagnoses Post-operative pain S/P spinal fusion Jeremy Michelle MD [address] [facility] [address] [place] [address] Phone: tel: fax: [facility] (All Locations) Referral ID Status Reason Start Date Expiration Date V isits Requested Visits Authorized [id number] Closed Specialty Services Required 11/02/2020 11/02/2021 24 24 Encounter Details Date Type Department Care Team (Late st Contact Info) Description 11/28/2020 10:45 AM CDT Therapy [facility] Physical Therapy [address] [facility] 1st [address] [place] [address] Guerrero Weiner, STRETCHER LEVELER OPERATOR [address] 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 Passed screening determines patient has no current fever, cough, SOB, loss of sense of taste or sense of smell, body aches, or sore throat. Patient has not been exposed to anyone suspected of having COVID-19 in the past 14 days. Subjective: Patient reports her exercises make her sore. Sometimes the exercises make her feel better, other times they do cause some soreness in her low back. She is feeling her glutes working some as well. Shehas been trying to be mindful of her posture. Pain: Varies between a 3-7/10, today more like a 7/10. She did a lot of walking/activities yesterday, so that is why. Performance of HEP: Tries to do most of them every day. She has not been using the band between herknees for the sit to stand due to it being more of a hassle. 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 HEP THERAPEUTIC EXERCISE Parameters Comments x x Supine heel slide with low ab activation Emphasis on low ab and hamstring activation x x sidelying hip abd/LR 1-3 second hold per rep 2 pillows between knees x x Sitting knee extension Seated in a chair Folded towel supporting distal femur Cue to prevent femoral medial rotation x x Sit to/from stand Yellow TB above knee 1 pillow x x Side stepping Yellow TB above knees At counter for support x x Hooklying shoulder flexion Yellow TB THERAPEUTIC ACTIVITY Parameters Comments x Patient education -Anatomy & kinesiology education -Tissue susceptible to movement and movement pattern correction (back, hip and LE mm) -Sitting: back support -standing posture: feet shldr width and slightly turned out, soft knees, decrease swayback -sleeping posture: 2 pillows between knees -bed mobility -Home Exercise Program Patient requests emails be sent to: [email or web address] Next visit: + review exercises and progress as able + general gluteal strength (I.e. seated hip LR, etc.) + seated hip flexion (may need AA throughout) Assessment/Plan: Patient presents this date with report of up and down symptoms, noting inconsistent pain and fair activity tolerance. She reports feeling some soreness recently. Discussed muscle fatigue/soreness vs pain throughout exercises. She was able to perform and progress exercises with moderate cuing to ensure proper muscle activation/stretching. Continued with education on appropriate exercises and response to exercises. She verbalized good mindfulness and awareness of recommendations for posture and alignment. No increase in symptoms throughout and after the treatment. Patient would benefit from continued skilled therapy for education and progression of strength to work towards goals and return to normal functional abilities. Total Treatment Time: 40 minutes Treatment this date was provided by a licensed Physical Therapist Laborer. There was on-site supervision of the Physical Therapist Laborer by a Physical Therapist when the treatment was performed. Guerrero Weiner PTA Cosigned by Lorena Jaramillo DPT at 11/28/2020 12:44 PM CDT documented in this encounter Plan of Treatment Not on file documented as of this encounter Visit Diagnoses Diagnosis Post-operative pain- Primary Other acute postoperative pain Chronic bilateral low back pain without sciatica Hip pain Pain in joint, pelvic region and thigh documented in this encounter Care Teams Ager Operator Relationship Specialty Start Date End Date Enmanuel Gan MD [address] [facility] [address] INTERNAL MEDICINE [place], [place] [id number] PCP - General Internal Medicine 04/26/20 Tg Houston MD [address] [place] [address] Consulting Physician Cardiology 07/18/20 Guerrero Hunter DPT [address] [facility] [address] [place] [address] Physical Therapist Physical Therapy 11/08/20 documented as of this encounter
--- OUTSIDE RECORDS SUMMARY | 2024-07-12 08:51 | XMS_ITS | Encounter Summary ---
Author Organization [facility] Address [address] [place] [address] Phone Care Team Providers Care Canvas Marker Name Role Phone Enmanuel Gan MD Primary Care Provider [phone] Tg Houston MD Unavailable [phone] Guerrero Hunter DPT Unavailable [phone] Reason for Visit * Reason Comments PT Initial Eval * Consultation (Routine) - Closed Specialty Diagnoses / Procedures Referred By Gigi t Referred To Contact Physical Therapy Diagnoses Post-operative pain S/P spinal fusion Jeremy Michelle MD [address] [facility] 6[address]6B[address]12A [place] [address] Phone: tel: fax: [facility] (All Locations) Referral ID Status Reason Start Date Expiration Date V isits Requested Visits Authorized [id number] Closed Specialty Services Required 11/02/2020 11/02/2021 24 24 Encounter Details Date Type Department Care Team (Late st Contact Info) Description 11/08/2020 10:00 AM CDT Therapy [facility] Physical Therapy [address] [facility] 1st Floor [address] [place] [address] Guerrero Hunter, DPT [address] [facility] [address] [place] [address] Post-operative pain (Primary Dx); Chronic [...] on file Legal Sex Female 9:09 PM EMERGENCY MANAGEMENT COORDINATOR Gender Identity Not on file Sexual Orientation Lesbian 05/24/2019 9: 06 AM CDT documented as of this encounter Progress Notes * Guerrero Hunter, DPT - 11/08/2020 10:00 AM CDT Physical Therapy Initial Evaluation Macie Mondragonwin 1945 75 y.o. female Jeremy Michelle MD [address] [facility] 6A/6B[address]12A [place] [address] ICD-9-CM ICD-10-CM 1. Post-operative pain 338.18 G89.18 Ambulatory referral order to Physical Therapy - 2. Chronic bilateral low back pain without sciatica 724.2 M54.5 338.29 G89.29 3. Hip pain 719.45 M25.559 4. Chronic pain of right knee 719.46 M25.561 338.29 G89.29 Date of Service: 11/08/2020 Subjective History: History of current complaint: Patient presents with pain and weakness in her lower back. PMH significant for posterior spinal fusion T12-L4 revision (07/25/2020). She had been doing exercises following surgery with little improvement. Since surgery she notes consistent back pain as well as pain along the anterior R hip, medial aspect of the R thigh, and anterior aspect of the R knee. She is unsure if her back pain is related/causes the LE pain or if those pains are separate. She notes having constant low back pain that she describes as achiness with significant increases in tightness as she moves. Diagnostic testing: Xray (11/06/20) - 1. Unchanged instrumented posterior spinal fusion from L1 through L4, noninstrumented posterior spinal fusion from L4 through S1, lumbar posterior decompression and discectomy with interbody fusion from L2 through S1. 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 Sports/Leisure/Fitness activities: wood burning Goal(s): decrease pain and improve ADL performance Objective Standing Alignment Thoracic spine: flat and swayback Lumbar spine: flat Pelvis: posterior tilt and rotated right Iliac crest height (preferred): left high Iliac crest height (feet apart): level Hip Right femoral medial rotation Left femoral medial rotation Knee Right hyperextended Left hyperextended Movement Testing Standing: Forward Bend/Return Movement Pattern Symptoms Symptoms Modifable with Correction? Forward thoracic spine > lumbar spine and hips > lumbar spine no change N/A Return sway at end no change N/A Standing: Trunk Rotation: ROM R=L Movement Pattern Symptoms Femoral rotation Symptoms Modifable with Correction? Right shifts off axis increase Yes - decompression and manual assist Left shifts off axis increase Yes Standing: Trunk Sidebend: ROM R=L Movement Pattern Symptoms Symptoms Modifable with Correction? Right shifts off axis increase Yes Left shifts off axis increase Yes Effect of Decompression on Symptoms: decrease Preferred Sitting: slumped Sitting Knee Extension Movement Pattern Symptoms Symptoms Modifable with Correction? Neural Tension Hamstring Length Gastroc Length Right lumbar rotation and femoral medial rotation increase Yes - lean back No short and stiff stiff Left lumbar rotation and femoral medial rotation increase Yes No short and stiff stiff Preferred Supine Position: hooklying Hip Range of Motion - deferred to follow-up Hip Flexed Hip Ext Raghav's Test Right Left Supine Abduction/LR (BKFO) Movement Pattern Symptoms Symptoms Modifable with Correction? Right pelvic rotation on the IN increase Yes Left pelvic rotation on the IN increase Yes Supine Single Knee to Chest ROM Movement Pattern Symptoms Symptoms Modifable with Correction? Right WFL Passive: femoral anterior glide Active: lumbar rotation and femoral anterior glide increase Yes Left WFL Passive: femoral anterior glide Active: lumbar rotation and femoral anterior glide increase Yes Straight Leg Raise (isabel. Neural tension) Movement Pattern Symptoms Symptoms Modifiable with Correction? Right Passive:femoral anterior glide Active:femoral anterior glide increase Yes Left Passive: lumbar rotation Active: lumbar rotation no change N/A Sidelying posture: hip adduction and hip medial rotation Symptoms modifiable with correction? Yes Primary correction: 2 pillows between knees Sidelying Hip Abduction/LR (clamshell) Movement Pattern Symptoms Symptoms Modifable with Correction? Right lumbopelvic rotation no change N/A Left lumbopelvic rotation no change N/A MMT Lower abdominals Performance level: heel slide Right Left Deep Lateral Rotators Deep Medial Rotators Iliopsoas TFL Quadriceps Glute Max PGM Muscle Length Right Left Hamstring 90/90 short and stiff short and stiff Hamstring SLR stiff stiff TFL Short and Stiff Short and Stiff Rectus Femoris Stiff Stiff Iliopsoas stiff stiff Latissimus Functional Mobility Movement Pattern Symptoms Symptoms Modifable with Correction? Rolling Log roll no change N/A Gait: deferred to follow-up Pain: Movement pattern: Symptoms modifiable? Modified Oswestry: MODIFIED OSWESTRY LOW BACK PAIN QUESTIONNAIRE 11/07/2020 Section 1 - Pain Intensity 1 - The pain is bad, but I can manage without having to take pain medication Section 2 - Personal Care (e.g., washing, dressing) 1 - I can take care of myself normally, but it increases my pain Section 3 - Lifting 3 - Pain prevents me from lifting heavy weights off the floor, but I can managelight to medium weights if they are conveniently positioned Section 4 - Walking 3 - Pain prevents me from walking more than 1/4 mile Section 5 - Sitting 2 - Pain prevents me from sitting for more than 1 hour Section 6 - Standing 3 - Pain prevents me from standing for more than 1/2 an hour Section 7 - Sleeping 2 - Even when I take medication, I sleep less than 6 hours Section 8 - Social Life 3 - Pain prevents me from going out very often Section 9 - Traveling 2 - My pain restricts my travel over 2 hours Section 10 - Employment/Homemaking 3 - Pain prevents me from doing anything but light duties Modified Oswestry Low Back Pain Score 23 Percentage 46 Treatment Provided: Movement diagnosis - 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 HEP THERAPEUTIC EXERCISE Parameters Comments New x Supine heel slide with low ab activation Emphasis on low ab and hamstring activation New x sidelying hip abd/LR 1-3 second hold per rep 2 pillows between knees New x Sitting knee extension Lean back on hands NEURO RE-ED Parameters Comments THERAPEUTIC ACTIVITY Parameters Comments x Patient education -Anatomy & kinesiology education -Tissue susceptible to movement and movement pattern correction (back, hip and LE mm) -Sitting: back support -standing posture: feet shldr width and slightly turned out, soft knees, decrease swayback -sleeping posture: 2 pillows between knees -Home Exercise Program Patient requests emails be sent to: [email or web address] Next visit: + review exercises and progress as able + strengthen lower abdominals + general gluteal strength (I.e. sit to/from stand, seated hip LR, sidestep, etc.) + seated hip flexion (may need AA throughout) + Patient was educated about the following activities: Direction susceptible to movement and movement correction, Home Exercise Program, Posture and Sleepposition Assessment/Plan: Chief Complaint PT Initial Eval Patient is a 75 y.o.-year-old female who presents to physical therapy with a chief complaint of diffuse low back pain with unrelated R hip, thigh and knee pain. During examination pain was provoked with static standing, trunk rotation and sidebend, active supine unilateral hip flexion with knee flexed and active supine straight leg raise. Signs and symptoms are consistent with a movement diagnosis of lumbar rotation syndrome with associated R hip adduction with medial rotation syndrome. Pt stands with flat thoracic and lumbar spine, swayback, posterior tilt and R rotated pelvis, B femoral medial rotation and knee hyperextension. Additional factors leading to diagnosis include: short/stiff hamstrings, TFL-ITB, decreased functional strength/neural control of gluteal mm. Other contributing or associated factors include: PMH significant for posterior spinal fusion T12-L4 revision (07/25/2020). Will benefit from PT for patient education, strengthening, stretching, ROM, HEP, taping PRN, func tional mobility training and stretching/strengthening to address the muscles listed above as well as for neuromuscular re - education to improve movement pattern with functional activities. Fair prognosis. Patient consented to treatment and plan. Short Term Goals: (5 weeks) Goal Description New Ongoing Partially Met Met Deferred The patient will decrease c/o pain with functional activities to 6-7/10 at worst. X The patient will demonstrate improved static posture in standing. X The patient will demonstrate improved movement pattern with sit to/from stand and gait. X The patient will be independent with strategies designed to help manage symptoms with the followingactivities: ADLs X The patient will demonstrate HEP with minimal guidance X Manager Scientific Goals: (10 weeks) Goal Description New Ongoing Partially Met Met Deferred The patient will decrease c/o pain with functional activities to 3-4/10 at worst. X The patient will perform the following functional activities without pain: ADLs. X The patient will be independent with strategies designed to help manage symptoms with the followingactivities: distribution systems serviceperson and rec activities as desired. X The patient be independent with final HEP needed for sustained correction of movement impairments. X Frequency/Duration: 1x/week for 10 weeks Total treatment time: 60 min Guerrero Hunter DPT documented in this encounter Plan of Treatment Not on file documented as of this encounter Visit Diagnoses Diagnosis Post-operative pain- Primary Other acute postoperative pain Chronic bilateral low back pain without sciatica Hip pain Pain in joint, pelvic region and thigh Chronic pain of right knee documented in this encounter Orders Outpatient Referral Count Last Ordered Date Fir st Ordered Date AMB REFERRAL ORDER TO PHYSICAL THERAPY 1 documented in this encounter Care Teams Canvas Marker Relationship Specialty Start Date End Date Enmanuel Gan MD [address] [facility] [address] [place] [address] PCP - General Internal Medicine 04/26/20 Tg Houston MD [address] [facility] [address] [place] [address] Consulting Physician Cardiology 07/18/20 Guerrero Hunter DPT [address] [facility] [address] [place] [address] Physical Therapist Physical Therapy 11/08/20 documented as of this encounter
--- OUTSIDE RECORDS SUMMARY | 2024-07-12 08:51 | XMS_ITS | Encounter Summary ---
Author Organization [facility] Address [address] [place] [address] Phone Care Team Providers Care Line Mechanic Name Role Phone Enmanuel Gan MD Primary Care Provider [phone] Tg Houston MD Unavailable [phone] Guerrero Hunter DPT Unavailable [phone] Reason for Visit * Reason Comments PT Treatment * Consultation (Routine) - Closed Specialty Diagnoses / Procedures Referred By Gigi orosco Referred To Contact Physical Therapy Diagnoses Post-operative pain S/P spinal fusion Jeremy Michelle MD [address] [facility] 6A/6B[address]12A [place] [address] Phone: tel: fax: [facility] (All Locations) Referral ID Status Reason Start Date Expiration Date V isits Requested Visits Authorized [id number] Closed Specialty Services Required 11/02/2020 11/02/2021 24 24 Encounter Details Date Type Department Care Team (Late st Contact Info) Description 12/04/2020 9:45 AM CDT Therapy 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 Post-operative pain 338.18 G89.18 COVID-19 Screening: Patient was pre-screened prior to entering clinic space and passed. Passed screening determines patient has no current fever, cough, SOB, loss of sense of taste or sense of smell,body aches, or sore throat. Patient has not been exposed to anyone suspected of having COVID-19 in the past 14 days. Subjective: Patient states that she has had 2 falls in the last 2 weeks. The first one was an anterior fall with her dog pulling her down. The second, she was stooping down to look into a cupboard where her feet slipped out from under her on her way down sending her posteriorly where she hit her L side of her head, L shoulder, and L hip. The first fall was not too bad as she was able to get her self home without pain. The second fall led to more pain throughout her body that she describes as soreness. This has prevented her from doing her HEP completely, and she continues to experience low back pain. 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 HEP THERAPEUTIC EXERCISE Parameters Comments VR x Supine heel slide with low ab [...] above knees At counter for support x Hooklying shoulder flexion Yellow TB THERAPEUTIC ACTIVITY Parameters Comments New x Gait mechanics 2 hiking sticks Cues [...] Program Patient requests emails be sent to: Next visit: + review and progress exercises (no new exercises unless 1 is taken away) + education on functional mobility (lifting, cleaning, sweeping, dishes, etc.) Assessment: Pt presents with good technique with exercises/activities and required moderate cues to engage gluts, to engage abdominals, for proper direction of movement and for set up and technique to prevent compensatory movement, to prevent excessive lumbopelvic rotation, to prevent excessive lumbopelvic extension and to increase intended muscle recruitment. Patient benefits from hiking sticks during gait,which provide an increased sense of stability and allows her a better opportunity to maintain gentle activation of the lower abdominals. No increase in symptoms this visit. Reviewed and completed theitems marked above. Goals Short Term Goals: (4 weeks) Goal Description New Ongoing Partially Met Met Deferred The patient will decrease c/o pain with functional activities to 7-8/10 at worst. x The patient will demonstrate improved static posture in standing. x The patient will demonstrate improved movement pattern with sit to/from stand. x The patient will be independent with strategies designed to help manage symptoms with the followingactivities: ADLs x The patient will demonstrate HEP with minimal guidance x Cdl Team Truck Driver Goals: (8 weeks) Goal Description New Ongoing [...] Post-operative pain- Primary Other acute postoperative pain documented in this encounter Care Teams Line Mechanic Relationship Specialty Start Date End Date Enmanuel Gan MD [address] [place] [address] [place] [address] PCP - General Internal Medicine 10/1/20 Tg Houston MD [address] [place] [address] Consulting Physician Cardiology 07/18/20 Guerrero Hunter DPT [address] [facility] [address] [place] [address] Physical Therapist Physical Therapy 11/08/20 documented as of this encounter
--- OUTSIDE RECORDS SUMMARY | 2024-07-12 08:51 | XMS_ITS | Encounter Summary ---
Author Organization [facility] Address [address] [place] [address] Care Team Providers Care Polytechnic Teacher Name Role Phone Enmanuel Gan MD Primary Care Provider [phone] Tg Houston MD Unavailable [phone] Guerrero Hunter DPT Unavailable [phone] Encounter Details Date Type Department Care Team (Late st Contact Info) Description 11/08/2020 12:20 PM CDT Lab [facility] [address] [place] [phone] Jeremy Michelle MD [address] [facility] [address] [place] [address] Follow-up examination following surgery Discharge Disposition: Discharge [...] you attend [facility] or [facility]? 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 Gender Identity Not on file Sexual Orientation Lesbian 05/24/2019 9: 06 AM CDT documented as of this encounter Discharge Disposition Disposition Code Departure Means Destination Discharge to home or self care documented in this encounter Plan of Treatment Not on file documented as of this encounter Procedures Procedure Name Priority Date/Time Associated Diagnosis Comments DIFFERENTIAL AUTO Routine 11/08/2020 12: 10 PM CDT Follow-up examination following surgery CBC WITH AUTO DIFFERENTIAL Routine 11/08/2020 12:10 PM CDT Follow-up examination following surgery ERYTHROCYTE SEDIMENTATION RATE Routine 11/08/2020 12:10 PM CDT Follow-up examination following surgery CRP (ACUTE PHASE) Routine 11/08/2020 12: 10 PM CDT Follow-up examination following surgery documented in this encounter Results * Differential, auto (11/08/2020 12:10 PM CDT) Neutrophil abs 3.0 1.7 - 6.5 K/cumm [facility] Imm gran abs 0.0 0.0 - 0.1 K/cumm [facility] Lymphocyte abs 1.8 0.8 - 3.3 K/cumm [facility] Monocyte abs 0.5 0.2 - 0.8 K/cumm [facility] Eosinophil abs 0.2 0.0 - 0.5 K/cumm [facility] Basophil abs 0.1 0.0 - 0.1 K/cumm [facility] Neutrophil pct 55.3 % [facility] Comment: Interpretive Data Percent cell count reference ranges are not reported, since discordance with absolute values may lead to misinterpretation of CBC data. Current Interpretive Data was last revised on 2017. Imm gran pct 0.2 % [facility] Comment: Interpretive Data Percent cell count reference ranges are not reported, since discordance with absolute values may lead to misinterpretation of CBC data. Current Interpretive Data was last revised on 2017. Lymphocyte pct 31.9 % [facility] Comment: Interpretive Data Percent cell count reference ranges are not reported, since discordance with absolute values may lead to misinterpretation of CBC data. Current Interpretive Data was last revised on 2017. Monocyte pct 8.6 % [facility] Comment: Interpretive Data Percent cell count reference ranges are not reported, since discordance with absolute values may lead to misinterpretation of CBC data. Current Interpretive Data was last revised on 2017. Eosinophil pct 3.1 % [facility] Comment: Interpretive Data Percent cell count reference ranges are not reported, since discordance with absolute values may lead to misinterpretation of CBC data. Current Interpretive Data was last revised on 2017. Basophil pct 0.9 % [facility] Comment: Interpretive Data Percent cell count reference ranges are not reported, since discordance with absolute values may lead to misinterpretation of CBC data. Current Interpretive Data was last revised on 2017. Blood specimen (specimen) 11/08/2020 12:10 PM CDT 11/08/2020 12:51 PM CDT Jeremy Michelle MD LAB BLOOD ORDERABLES Final Result Performing Organization Address [facility] Co de Phone Number [facility] [place] [address] * Erythrocyte sedimentation rate (11/08/2020 12:10 PM CDT) [facility] Erythrocyte sedimentation rate 6 1 - 30 mm/hr [facility] Blood specimen (specimen) 11/08/2020 12:10 PM CDT 11/08/2020 12:51 PM CDT Jeremy Michelle MD LAB BLOOD ORDERABLES Final Result Performing Organization Address [facility] de Phone Number [facility] [place] [address] * (ABNORMAL) CBC with auto differential (11/08/2020 12:10 PM CDT) [facility] WBC 5.5 3.8 - 9.9 K/cumm [facility] Hgb 13.3 11.9 - 15.5 g/dL [facility] Hct 41.0 35.6 - 45.5 % [facility] Plt 277 150 - 400 K/cumm [facility] MPV 9.8 9.1 - 12.3 fL [facility] RBC 4.91 3.90 - 5.20 M/cumm [facility] MCV 83.5 81.3 - 96.4 fL [facility] MCH 27.1 27.1 - 33.3 pg [facility] MCHC 32.4 32.3 - 35.7 g/dL [facility] RDW CV 15.5(H) 11.1 - 14.9 % [facility] RDW SD 47.3 35.7 - 48.1 fL [facility] NRBC abs 0.00 0.00 - 0.01 K/cumm [facility] Blood specimen (specimen) 11/08/2020 12:10 PM CDT 11/08/2020 12:51 PM CDT Jeremy Michelle MD LAB BLOOD ORDERABLES Final Result Performing Organization Address [facility] Co de Phone Number [facility] Department [place] [address] * CRP (acute phase) (11/08/2020 12:10 PM CDT) CRP 1.1 <=10.0 mg/L [facility] Blood specimen (specimen) 11/08/2020 12:10 PM CDT 11/08/2020 12:51 PM CDT Jeremy Michelle MD LAB BLOOD ORDERABLES Final Result Performing Organization Address [facility] de Phone Number [facility] [place] [address] documented in this encounter Visit Diagnoses Diagnosis Follow-up examination following surgery documented in this encounter Care Teams Polytechnic Teacher Relationship Specialty Start Date End Date Enmanuel Gan MD [address] [place] [address] PCP - General Internal Medicine 04/26/20 Tg Houston MD [address] [place] [address] Consulting Physician Cardiology 07/18/20 Guerrero Hunter DPT [address] [facility] [address] [place] [address] Physical Therapist Physical Therapy 11/08/20 documented as of this encounter
--- OUTSIDE RECORDS SUMMARY | 2024-07-12 08:51 | XMS_ITS | Encounter Summary ---
Author Organization [facility] Healthcare Address [address] [place] [address] Care Team Providers Care Senior Supply Chain Analyst Name Role Phone Enmanuel Gna MD Primary Care Provider [phone] Tg Hosuton MD Unavailable [phone] Reason for Referral * Diagnostic Imaging (Routine) - Closed Specialty Diagnoses / Procedures Referred By Contac t Referred To Contact Diagnoses Follow-up examination following surgery Procedures XR Scoliosis 6 or More Views Jeremy Michelle MD [address] [facility] [address] [place] [address] Phone: tel: fax: [address] [address] Referral ID Status Reason Start Date Expiration Date Visits Re quested Visits Authorized [id number] Closed 11/05/2020 12/05/2021 1 1 Reason for Visit * Diagnostic Imaging (Routine) - Closed Specialty Diagnoses / Procedures Referred By Contac t Referred To Contact Diagnoses Follow-up examination following surgery Procedures XR Scoliosis 6 or More Views Jeremy Michelle MD [address] [facility] [address] [address] Phone: tel: fax: [facility] [address] [place] [address] Referral ID Status Reason Start Date Expiration Date Visits Re quested Visits Authorized [id number] Closed 11/05/2020 12/05/2021 1 1 Encounter Details Date Type Department Care Team (Latest Contact Info) Description 11/06/2020 3:00 PM CDT - 11/06/2020 11:59 PM CDT Hospital Encounter [facility] [address] [place] [address] Jeremy Michelle MD [address] [facility] [address] Follow-up examination following surgery Discharge Disposition: Discharge [...] on file 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 Gender Identity Not on file Sexual Orientation Lesbian 05/24/2019 9: 06 AM CDT documented as of this encounter Medications at Time of Discharge atorvastatin (LIPITOR) 20 mg tabletIndication s:hyperlipidemia Take 1 tablet (20 mg total) by mouth nightly 07/29/2018 ALPRAZolam (XANAX) 0.25 mg tabletIndication s:ears Take 2 tablets (0.5 mg total) by mouth nightly as needed (dizziness) 60 tablet 08/31/2020 1 ascorbic acid (ascorbic acid with indira [...] hours as needed for pain 42 tablet 10/02/2020 1 triamterene-hydr oCHLOROthiazide 37.5-25 mg per capsule [...] VIEWS Schedule Routine, Read Routine (OP Routine) 11/06/2020 3:59 PM CDT Follow-up examination following surgery documented in this encounter Results * XR Scoliosis 6 or More Views (11/06/2020 3:59 PM CDT) Anatomical Region Laterality Modality Spine N/A Computed Radiogr aphy 11/06/2020 4:20 PM CDT Impressions 11/06/2020 4:20 PM CDT 1. ??Unchanged instrumented posterior spinal fusion from L1 through L4, noninstrumented posterior spinal fusion from L4 through S1, lumbar posterior decompression and discectomy with interbody fusion from L2 through S1. Electronically signed by: Yemi Francis M.D. Narrative 11/06/2020 4:20 PM CDT EXAMINATION: Thoracolumbar scoliosis 6 or more views HISTORY: ??Lumbar spondylosis FINDINGS: 4 views of the lumbar spine and stitched AP and lateral images of the thoracolumbar spine are submitted for interpretation. Comparison is made to prior examination on 10/02/2020. There is unchanged instrumented posterior spinal fusion from L1 through L4, noninstrumented posterior spinal fusion from L4 through S1, lumbar posterior decompression and discectomy from interbody fusion from L2 through S1. There is mild anterior sagittal imbalance, no coronal imbalance and no pelvic tilt. 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 Procedure Note Yemi Francis MD - 11/06/2020 EXAMINATION: Thoracolumbar scoliosis 6 or more views HISTORY: Lumbar spondylosis FINDINGS: 4 views of the lumbar spine and stitched AP and lateral images of the thoracolumbar spine are submitted for interpretation. Comparison is made to prior examination on 10/02/2020. There is unchanged instrumented posterior spinal fusion from L1 through L4, noninstrumented posterior spinal fusion from L4 through S1, lumbar posterior decompression and discectomy from interbody fusion from L2 through S1. There is mild anterior sagittal imbalance, no coronal imbalance and no pelvic tilt. 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 IMPRESSION: 1. Unchanged instrumented posterior spinal fusion from L1 through L4, noninstrumented posterior spinal fusion from L4 through S1, lumbar posterior decompression and discectomy with interbody fusion from L2 through S1. Electronically signed by: Yemi Francis M.D. Jeremy Michelle MD IMG XR PROCEDURES Fi nal Result documented in this encounter Visit Diagnoses Diagnosis Follow-up examination following surgery documented in this encounter Care Teams Senior Supply Chain Analyst Relationship Specialty Start Date End Date Enmanuel Gan MD [address] [place] [address] PCP - General Internal Medicine 04/26/20 Tg Houston MD [address] [facility] [address] [place] [address] Consulting Physician Cardiology 07/18/20 documented as of this encounter
--- OUTSIDE RECORDS SUMMARY | 2024-07-12 08:51 | XMS_ITS | Encounter Summary ---
Author Organization [facility] Address [address] [place] [address] Phone Care Team Providers Care Dental Practitioner Name Role Phone Enmanuel Gan MD Primary Care Provider [phone] Tg Houston MD Unavailable [phone] Encounter Details Date Type Department Care Team (Late st Contact Info) Description 11/06/2020 4:00 PM CDT Office Visit [facility] Orthopaedic Surgery [facility] Medicine 12th [place] [address] [place] [id number] Jeremy Michelle MD [address] [facility] [address] [place] [address] Follow-up examination following surgery (Primary Dx) Social [...] week 07/30/2020 How often do you attend [facility] or yarsanism services? 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 Sincerely, Dr. Jeremy Michelle & Cyndie Byers RN Please contact Dr. Miguel Angel Agee's Nurse if you have any questions. Mail disc to: Orthopedics Attn: Cyndie/ Dr. Michelle [address] [place] [address] documented in this encounter Progress Notes * Jeremy Michelle MD - 11/06/2020 4:00 PM CDT Patient returns today now 3 months out from revision surgery. This was done for nonunion and adjacent segment. She did well immediately postoperatively and then developed some pain in the last several weeks. She describes having low back pain and tightness. She says that when she gets up it hurts but then when she gets going it is okay and that she gets tired she finds herself leaning forward and having more more low back pain. She also has right-sided adductor type leg pain that she has had for many years and it seemed to flare up around 6-7 weeks after surgery. She says now it is slightly better than it was 1 month ago so I am not sure what that was all about as her MRI and her CT do not show anything abnormal other than the decompression and fusion. Her foramen look okay to me certainly do not look worse. And in talking to her today she seems more likely deformity/back musculature is her problem. She says her back pain is her biggest complaint now and the leg stuff seems to have settled down. On her upright scoliosis films today they did not have the longstanding cassettes they had 2 stitchfilms together which is less than ideal. That said it looks like she is standing slightly leaning forward with an SVA closer to 5. Her preop SVA was around 2. Her lumbar lordosis after extending up 1level is actually increased from L1-L4 to 30 were preoperatively it was around 22. Her pelvis looksto be in a normal position and less retroverted than preop. Her L1 pelvic angle appears the same around 15. - PT for gait training and core strength - ESR CRP CBC We will see her back in 2-3 months with scoliosis films Jeremy Michelle MD PhD Attending Spine Surgeon Graphite Mill Operator of Orthopaedic and Neurological Surgery [facility] Orthopaedics [facility] documented in this encounter Plan of Treatment Not on file documented as of this encounter Results * CRP (acute phase) (11/08/2020 12:10 PM CDT) [facility] CRP 1.1 <=10.0 mg/L [facility] Blood specimen (specimen) 11/08/2020 12:10 PM CDT 11/08/2020 12:51 PM CDT Jeremy Michelle MD LAB BLOOD ORDERABLES Final Result Performing Organization Address City/[facility]/ZIP Co de Phone Number [facility] [place] [address] * (ABNORMAL) CBC with auto differential (11/08/2020 12:10 PM CDT) [facility] WBC 5.5 3.8 - 9.9 K/cumm [facility] Hgb 13.3 11.9 - 15.5 g/dL [facility] Hct 41.0 35.6 - 45.5 % [facility] Plt 277 150 - 400 K/cumm [facility] MPV 9.8 9.1 - 12.3 fL [facility] RBC 4.91 3.90 - 5.20 M/cumm [facility] MCV 83.5 81.3 - 96.4 fL [facility] MCH 27.1 27.1 - 33.3 pg [facility] MCHC 32.4 32.3 - 35.7 g/dL [facility] RDW CV 15.5(H) 11.1 - 14.9 % [facility] RDW SD 47.3 35.7 - 48.1 fL [facility] NRBC abs 0.00 0.00 - 0.01 K/cumm [facility] Blood specimen (specimen) 11/08/2020 12:10 PM CDT 11/08/2020 12:51 PM CDT Jeremy Michelle MD LAB BLOOD ORDERABLES Final Result Performing Organization Address City/[facility]/ZIP Co de Phone Number [facility] [employer] [place] [address] * Erythrocyte sedimentation rate (11/08/2020 12:10 PM CDT) Erythrocyte sedimentation rate 6 1 - 30 mm/hr [facility] Blood specimen (specimen) 11/08/2020 12:10 PM CDT 11/08/2020 12:51 PM CDT us Jeremy Michelle MD LAB BLOOD ORDERABLES Final Result [facility] Department [place] [address] documented in this encounter Visit Diagnoses Diagnosis Follow-up examination following surgery- Primary documented in this encounter Historical Medications * This list may reflect changes made after this encounter. DULoxetine DR (CYMBALTA) 60 mg capsule Take 60 mg by mouth daily 10/31/2020 06/05/2021 added in this encounter Care Teams Dental Practitioner Relationship Specialty Start Date End Date Enmanuel Gan MD [address] [place] [address] PCP - General Internal Medicine 04/26/20 Tg Houston MD [address] [facility] [address] [place] [address] Consulting Physician Cardiology 07/18/20 documented as of this encounter
--- OUTSIDE RECORDS SUMMARY | 2024-07-12 08:51 | XMS_ITS | Encounter Summary ---
Author Organization [facility] Address [address] [place] [address] Phone Care Team Providers Care Cloud Developer Name Role Phone Enmanuel Gan MD Primary Care Provider Tg Houston MD Unavailable [phone] Guerrero Hunter DPT Unavailable [phone] Guerrero Weiner PACE ANALYST Unavailable [phone] Reason for Visit * Reason Comments PT Treatment * Consultation (Routine) - Closed Specialty Diagnoses / Procedures Referred By Contac t Referred To Contact Physical Therapy Diagnoses Post-operative pain S/P spinal fusion Jeremy Michelle MD [address] [place] [address] Phone: tel: fax: [facility] (All Locations) Referral ID Status Reason Start Date Expiration Date V isits Requested Visits Authorized [id number] Closed Specialty Services Required 11/02/2020 11/02/2021 24 24 Encounter Details Date Type Department Care Team (Late st Contact Info) Description 12/27/2020 9:[address] 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 Passed screening determines patient has no current fever, cough, SOB, loss of sense of taste or sense of smell, body aches, or sore throat. Patient has not been exposed to anyone suspected of having COVID-19 in the past 14 days. Subjective: Patient reports her low back has been hurting more than usual recently. For some reason this week it has been less painful when waking up in the morning, but more painful throughout the day. She now feels it with any movement throughout the day (walking, bending, twisting, etc). It does help when she performs her exercises, but the pain comes back shortly after performing them. She has been usingthe cold back as well this week, which also seems to help a little. She continues to be mindful of her posture and alignment, she feels like she is doing pretty well with it. Pain: Both sides of her low back, pretty low down (right above the hips). Builds up to an 8-9/10 attimes. 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 HEP THERAPEUTIC EXERCISE Parameters Comments VR x Supine heel slide with low ab activation Emphasis on low ab and hamstring activation VR x sidelying hip abd/LR 1-3 second hold per rep 2 pillows between knees 2-3 folded towels under lumbar spine VR x Sitting knee extension Seated in a chair Folded towel supporting distal femur Cue to prevent femoral medial rotation VR x Sit to/from stand Red TB above knee 1 pillow VR x Side stepping Red TB above knees At counter for support VR x Hooklying shoulder flexion Red TB x x Modified quad rock Throughout the day x x Quadruped Rock Throughout the day x x Shoulder flexion wall slides For decompression THERAPEUTIC ACTIVITY Parameters Comments VR x Gait mechanics 2 hiking sticks Cues for gentle low ab activation x Patient education -Anatomy & kinesiology education -Tissue susceptible to movement and movement pattern correction (back, hip and LE mm) -Sitting: back support -standing posture: feet shldr width and slightly turned out, soft knees, decrease swayback -sleeping posture: 2 pillows between knees -bed mobility -Home Exercise Program -Discussion on bending/lifting mechanics. Alignment when folding/doing laundry -Symptom management: Trial of low back brace while up and moving until sxs ease, modification of ex's, increase frequency with decompression MANUAL THERAPY x STM to bilateral lumbar paraspinals in prone Patient requests emails be sent to: [email or web address] Assessment/Plan: Patient presents this date with report of flare up of symptoms this wekk, noting more pain and limited activity tolerance. No known cause or incident noted that increased her symptoms. She was more guarded and hesitant to move compared to usual, due to the pain. She responded very well to manual therapy and decompression exercises, noting less pain at the end of the session. Patient would benefit from continued skilled therapy for education and progression of strength to work towards goals and return to normal functional abilities. Total Treatment Time: 39 minutes Treatment this date was provided by a licensed Physical Therapist Sign Letterer. There was on-site supervision of the Physical Therapist Sign Letterer by a Physical Therapist when the treatment was performed. Guerrero Weiner PTA Cosigned by Guerrero Hunter DPT at 12/27/2020 11:43 AM CDT documented in this encounter Plan of Treatment Not on file documented as of this encounter Visit Diagnoses Diagnosis Post-operative pain- Primary Other acute postoperative pain documented in this encounter Care Teams Cloud Developer Relationship Specialty Start Date End Date Enmanuel Gan MD [address] [place] [address] PCP - General Internal Medicine 04/26/20 Tg Houston MD [address] [facility] [address] [place] [address] Consulting Physician Cardiology 07/18/20 Guerrero Hunter DPT [address] [facility] [address] [place], [place] [id number] Physical Therapist Physical Therapy 11/08/20 Guerrero Weiner, PACE ANALYST [address] [facility] [address] [place] [address] Ax Survey Worker Physical Therapy 12/12/20 documented as of this encounter
--- OUTSIDE RECORDS SUMMARY | 2024-07-12 08:51 | XMS_ITS | Encounter Summary ---
Author Organization [facility] Address [address] [place] [address] Phone Care Team Providers Care Poly Packer And Heat Sealer Name Role Phone Enmanuel Gan MD Primary Care Provider [phone] Tg Houston MD Unavailable [phone] Guerrero Hunter DPT Unavailable [phone] Guerrero Weiner PTA Unavailable [phone] Reason for Visit * Reason Comments PT Progress Note * Consultation (Routine) - Closed Specialty Diagnoses / Procedures Referred By Contac t Referred To Contact Physical Therapy Diagnoses Post-operative pain S/P spinal fusion Jeremy Michelle MD [address] [facility] [address] [place] [address] Phone: tel: fax: [facility] (All Locations) Referral ID Status Reason Start Date Expiration Date V isits Requested Visits Authorized [id number] Closed Specialty Services Required 11/02/2020 11/02/2021 24 24 Encounter Details Date Type Department Care Team (Late st Contact Info) Description 01/10/2021 9:15 AM CDT Therapy [facility] Physical Therapy [address] [facility] 1st Floor [address] [place] [phone] Guerrero Hunter DPRoshni [address] [facility] [address] [facility] [place] [place] [address] Post-operative pain (Primary Dx); Chronic bilateral low [...] attend chur ch or yazdanism services? 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 Post-operative [...] days. Subjective: Patient states that she is experiencing more pain especially in the last week. She has been trying to do her exercises, but has not been able to due to the pain. She recently purchased a new mattress that she thinks will make a difference. Pain: 4-12/03 Including today, patient has been seen for 8 physical therapy visits. 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 HEP THERAPEUTIC EXERCISE Parameters Comments x x Supine low ab activation with unilateral hip flexion x x sidelying hip abd/LR 1-3 second hold per rep 2 pillows between knees 2-3 folded towels under lumbar spine x Sitting knee extension Seated in a chair Folded towel supporting distal femur Cue to prevent femoral medial rotation x x Sit to/from stand Green TB above knee 1 pillow x Side stepping Green TB above knees x Hooklying shoulder flexion Red TB x Modified quad rock Throughout the day x Shoulder flexion wall slides For decompression Side step abdominal isometric Single pull Red TB Anti-Rotation Straight arm pull down Red TB over door Neutral spine THERAPEUTIC ACTIVITY Parameters Comments x Gait mechanics [...] on bending/lifting mechanics. Alignment when folding/doing laundry Patient requests emails be sent to: [email or web address] Assessment: Chief Complaint PT Progress Note Patient is a 75 y.o.-year-old female with primary c/o low back pain and R hip pain. Pt presents with poor technique with exercises/activities and required moderate cues to engage gluts, to engage abdominals, for proper direction of movement and for set up and technique to prevent compensatory movement, to prevent excessive lumbopelvic rotation, to prevent excessive lumbopelvic extension and to increase intended muscle recruitment. No increase in symptoms this visit. Demonstrates continued difficulty with recall regarding functional mobility and exercises listed above. Patient benefits from simplification of HEP and functional mobility to assist with recall. Reviewed and completed the items marked above.Will benefit from PT for patient education, strengthening, stretching, ROM, HEP, tapingPRN, modalities PRN and functional mobility training. Patient consented to treatment and plan. Goal Status: Short Term Goals: (4 weeks) Goal Description [...] will demonstrate HEP with minimal guidance x Irrigation Manager Goals: (8 weeks) Goal Description New Ongoing [...] correction of movement impairments. x Plan: Continue per plan. Total treatment time: 40 min Guerrero Hunter DPT documented in this encounter Plan of Treatment Not on file documented as of this encounter Visit Diagnoses Diagnosis Post-operative pain- Primary Other acute postoperative pain Chronic bilateral low back pain without sciatica documented in this encounter Care Teams Poly Packer And Heat Sealer Relationship Specialty Start Date End Date Enmanuel Gan MD [address] [facility] [address] INTERNAL MEDICINE [place], [place] [id number] PCP - General Internal Medicine 04/26/20 Tg Houston MD [address] [facility] [address] [place] [address] Consulting Physician Cardiology 07/18/20 Guerrero Hunter DPT [address] [facility] [address] [id number] Physical Therapist Physical Therapy 11/08/20 Guerrero Weiner, COURIER [id number] [place] [address] Nursing Admin Physical Therapy 12/12/20 documented as of this encounter
--- OUTSIDE RECORDS SUMMARY | 2024-07-12 08:51 | XMS_ITS | Encounter Summary ---
Author Organization [facility] Address [address] [place] [address] Phone Care Team Providers Care Patient Relations Representative Name Role Phone Enmanuel Gan MD Primary Care Provider [phone] Tg Houston MD Unavailable Guerrero Hunter DPT Unavailable [phone] Reason for Visit * Reason Comments PT Treatment * Consultation (Routine) - Closed Specialty Diagnoses / Procedures Referred By Gigi t Referred To Contact Physical Therapy Diagnoses Post-operative pain S/P spinal fusion Jeremy Michelle MD [address] [facility] [address] [place] [address] Phone: tel: fax: [facility] (All Locations) Referral ID Status Reason Start Date Expiration Date V isits Requested Visits Authorized [id number] Closed Specialty Services Required 11/02/2020 11/02/2021 24 24 Encounter Details Date Type Department Care Team (Late st Contact Info) Description 11/13/2020 2:30 PM CDT Therapy [facility] Physical Therapy [address] 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 Post-operative [...] days. Subjective: Patient states that she is sore. She has been performing her HEP regularly. She did have an anterior fall 2 days ago without complication and was able to get up on her own. Treatment Provided: Movement diagnosis - lumbar rotation [...] femur Cue to prevent femoral medial rotation New x Sit to/from stand Beige TB above knee 2 pillows NEURO RE-ED Parameters Comments THERAPEUTIC ACTIVITY Parameters Comments x Patient education -Anatomy & kinesiology education -Tissue susceptible to movement and movement pattern correction (back, hip and LE mm) -Sitting: back support -standing posture: feet shldr width and slightly turned out, soft knees, decrease swayback -sleeping posture: 2 pillows between knees -bed mobility -Home Exercise Program Patient requests emails be sent to: [email or web address] Next visit: + review exercises and progress as able + general gluteal strength (I.e. sit to/from stand, seated hip LR, sidestep, etc.) + seated hip flexion (may need AA throughout) Assessment: Pt presents with fair technique with exercises/activities and required minimal cues to engage gluts, to engage quads, for proper direction of movement and for set up and technique to prevent compensatory movement, for knee-toe alignment, to prevent excessive lumbopelvic rotation, to prevent excessive lumbopelvic extension and to increase intended muscle recruitment. Patient continues to demonstrate general deconditioning, and will continue to benefit from functional mobility based exercise to increase overall strength/endurance of gluteal and LE mm. No increase in symptoms this visit. Reviewed and completed HEP exercises. Plan: Continue PT per POC per patient tolerance. Total treatment time: 40 min Guerrero Hunter DPT documented in this encounter Plan of Treatment Not on file documented as of this encounter Visit Diagnoses Diagnosis Post-operative pain- Primary Other acute postoperative pain Chronic bilateral low back pain without sciatica Hip pain Pain in joint, pelvic region and thigh documented in this encounter Care Teams Patient Relations Representative Relationship Specialty Start Date End Date Enmanuel Gan MD [address] [facility] [address] [place] [address] PCP - General Internal Medicine 04/26/20 Tg Houston MD [address] [facility] [address] [place] [address] Consulting Physician Cardiology 07/18/20 Guerrero Hunter DPT [address] [facility] [address] [place] [address] Physical Therapist Physical Therapy 11/08/20 documented as of this encounter
--- OUTSIDE RECORDS SUMMARY | 2024-07-12 08:51 | XMS_ITS | Encounter Summary ---
Author Organization [facility] Address [address] [place] [address] Phone Care Team Providers Care Supervisor Gear Repair Name Role Phone Enmanuel Gan MD Primary Care Provider [phone] Tg Houston MD Unavailable [phone] Guerrero Hunter DPT Unavailable [phone] Guerrero Weiner ANGLE ROLL OPERATOR Unavailable [phone] Reason for Referral * Consultation (Routine) - Closed Specialty Diagnoses / Procedures Referred By Gigi orosco Referred To Contact Otolaryngology Diagnoses Sensorineural hearing loss (SNHL) of both ears Enmanuel aGn MD [address] [facility] [address] [facility] [address] [place] [address] Phone: tel: fax: [facility] (All Locations) Referral ID Status Reason Start Date Expiration Date V isits Requested Visits Authorized [id number] Closed Specialty Services Required 12/25/2020 01/24/2022 3 3 Question Answer Please select the performing region: [facility] (All Locations) [167] # of visits: 1 Reason for Visit * Reason Comments Hearing Loss * Consultation (Routine) - Closed Specialty Diagnoses / Procedures Referred By Contac t Referred To Contact Otolaryngology Diagnoses Sensorineural hearing loss (SNHL) of both ears Enmanuel Gan MD [address] [place] [address] Phone: tel: fax: [facility] (All Locations) Referral ID Status Reason Start Date Expiration Date V isits Requested Visits Authorized [id number] Closed Specialty Services Required 12/25/2020 01/24/2022 3 3 Encounter Details Date Type Department Care Team (Latest Contact Info) Description 01/07/2021 11:00 AM CDT Office Visit [facility] Advanced Medicine ([facility]) - [facility] ENT [address] [facility] 11th [place] [address] [place] [id number] Darshana Toth MD [address] [place] [address] Sensorineural hearing loss (SNHL) of both ears (Primary Dx) Social History Tobacco Use Types [...] How often do you attend chur or restorationism services? 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 Toth. Chief Complaint: Chief Complaint Patient presents with ??? Hearing Loss Interval: The patient returns for follow-up evaluation after undergoing CI in in her left ear which previously had a vestibular nerve section. She is very pleased with her hearing outcome and she has been and excellent performer so far on her postoperative testing. From a Meniere's prospective she has done very well without any attacks of vertigo. She has had some difficulty with balance and this is secondary to recent spine surgery. She is undergoing physic From previous: HPI: This is a 75 y.o. female who presents today for evaluation [...] History: Diagnosis Date ??? Atrial fibrillation (CMS/HCC) ??? Auditory vertigo Meniere's disease ??? HLD (hyperlipidemia) ??? Meniere's disease ??? Microvascular angina (CMS/HCC) Past Surgical History: Procedure Laterality Date ??? BACK SURGERY 2017 lower back, 2018, 2019 ??? CHOLECYSTECTOMY Cholecystectomy ??? COCHLEAR IMPLANT Left 06/19/2020 ??? JOINT REPLACEMENT Hip replacement, L - [...] Activity: ??? Days of Exercise per Week: ??? Minutes of Exercise per Session: Stress: ??? Feeling of Stress : Social Connections: Moderately Isolated ??? Frequency of Communication with Friends and Family: More than three times a week ??? Frequency of Social Gatherings with Friends and Family: Twice a week ??? Attends Worship Services: Never ??? Active Member of Clubs or Organizations: No ??? Attends Club or Organization Meetings: Never ??? Marital Status: Intimate Partner Violence: ??? Fear of Current or Ex-Partner: ??? Emotionally Abused: ??? Physically Abused: ??? Sexually Abused: Medications/Allergies/Immunizations Current Outpatient Medications Medication Sig Dispense Refill ??? ascorbic acid (ascorbic acid with indira [...] every morning ) 90 capsule 3 ??? ALPRAZolam (XANAX) 0.25 mg tablet Take 2 tablets (0.5 mg total) by mouth nightly as needed (dizziness) 60 tablet 0 ??? baclofen (LIORESAL) 10 mg tablet Take 1 tablet (10 mg total) by mouth 2 (two) times a day 90 tablet 1 No current facility-administered medications for this visit. Allergies: Adhesive, Chlorhexidine, Sulfa (sulfonamide antibiotics), and Gabapentin, Immunizations: Immunization History Administered Date(s) Administered ??? Influenza, Unspecified 03/27/2020 Review of Systems Review of Systems: Pertinent [...] will continue workingwith the cochlear implant team. I will see her as needed depending on symptoms related to Meniere'sdisease or any changes in hearing. Darshana Toth M.D. Otology and Neurotology Department of Otolaryngology [facility] in [email or web address] [email or web address] Office: Clinic: documented in this encounter Plan of Treatment Scheduled Referrals Name Type Priority Associated Diagnoses Order Schedule Ambulatory referral to ENT Outpatient Referral Routine Sensorineural hearing loss (SNHL) of both ears Expected: 01/08/2021 (Approximate), Expires: 12/25/2021 documented as of this encounter Visit Diagnoses Diagnosis Sensorineural hearing loss (SNHL) of both ears- Primary documented in this encounter Care Teams Supervisor Gear Repair Relationship Specialty Start Date End Date Enmanuel Gan MD [address] [facility] [address] [place] [address] [address] [place] [id number] PCP - General Internal Medicine 04/26/20 Tg Houston MD [address] [place] [address] Consulting Physician Cardiology 07/18/20 Guerrero Hunter DPT [address] [facility] [address] [facility] [place] [address] Physical Therapist Physical Therapy 11/08/20 Guerrero Weiner, ANGLE ROLL OPERATOR [address] [facility] [address] [place] [address] [facility] Physical Therapy 12/12/20 documented as of this encounter
--- OUTSIDE RECORDS SUMMARY | 2024-07-12 08:51 | XMS_ITS | Encounter Summary ---
Author Organization [facility] Address [address] [place] [address] Phone Care Team Providers Care Mason Tender Name Role Phone Enmanuel Gan MD Primary Care Provider [phone] Tg Houston MD Unavailable [phone] Guerrero Hunter DPT Unavailable [phone] Guerrero Weiner HAND GLOVE CLEANER Unavailable [phone] Reason for Visit * Reason Comments PT Treatment * Consultation (Routine) - Closed Specialty Diagnoses / Procedures Referred By Contac t Referred To Contact Physical Therapy Diagnoses Post-operative pain S/P spinal fusion Jeremy Michelle MD [address] [facility] [address] [place] [address] Phone: tel: fax: [facility] (All Locations) Referral ID Status Reason Start Date Expiration Date V isits Requested Visits Authorized [id number] Closed Specialty Services Required 11/02/2020 11/02/2021 24 24 Encounter Details Date Type Department Care Team (Late st Contact Info) Description 12/12/2020 10:45 AM CDT Therapy [facility] Physical Therapy [address] [facility] 1st Floor [address] [place] [address] Guerrero Weiner, HAND GLOVE CLEANER [address] [facility] [address] [place] [address] Post-operative pain (Primary Dx) Social History Tobacco [...] on file 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 Passed screening determines patient has no current fever, cough, SOB, loss of sense of taste or sense of smell, body aches, or sore throat. Patient has not been exposed to anyone suspected of having COVID-19 in the past 14 days. Subjective: Patient reports overall she is doing better, but the last day has not been too good. 2 nights ago she was at a visitation for a friend, so was standing in line/talking to others for >1 hour, so she believes this is the reason why she is more sore and having more discomfort today. Feels more likepressure and achy. Prior to that she was feeling pretty good. She went out on a trail walk over [facility] and brought her hiking poles--feels like they were beneficial. Performance of HEP: Going pretty well, no concerns or problems. Objective: Treatment Provided: Movement diagnosis - lumbar [...] Sit to/from stand Yellow TB above knee *Progressed to red 1 pillow x x Side stepping Yellow TB above knees *Progressed to red At counter for support VR x Hooklying shoulder flexion Yellow TB *Progressed to red x x Modified quad rock As needed THERAPEUTIC ACTIVITY Parameters Comments VR x Gait [...] laundry Patient requests emails be sent to: [email or web address] Assessment/Plan: Patient presents this date with report of continued improvement in symptoms, noting low level pain and better activity tolerance. She was having a little more discomfort over the last day due to standing for >1 hour the day before, but overall doing much better. She was able to perform and/or verbalize exercises with moderate cuing to ensure proper muscle activation/stretching. Continued with education on body mechanics, appropriate exercises, progressions. She verbalized good mindfulness and awareness of recommendations for posture and alignment. No increase in symptoms throughout and after the treatment. Patient would benefit from continued skilled therapy for education and progression of strength to work towards goals and return to normal functional abilities. Total Treatment Time: 30 minutes Treatment this date was provided by a licensed Physical Therapist Geometry Tutor. There was on-site supervision of the Physical Therapist Geometry Tutor by a Physical Therapist when the treatment was performed. Guerrero Weiner PTA Cosigned by Lorena Jaramillo DPT at 12/12/2020 12:55 PM CDT documented in this encounter Plan of Treatment Not on file documented as of this encounter Visit Diagnoses Diagnosis Post-operative pain- Primary Other acute postoperative pain documented in this encounter Care Teams Mason Tender Relationship Specialty Start Date End Date Enmanuel Gan MD [address] [facility] [address] MED[address]INE [place], [place] [id number] PCP - General Internal Medicine 04/26/20 Tg Houston MD [address] [facility] [address] [place] [address] Consulting Physician Cardiology 07/18/20 Guerrero Hunter DPT [address] [facility] [address] [place], [place] [id number] Physical Therapist Physical Therapy 11/08/20 Guerrero Weiner, HAND GLOVE CLEANER [address] [facility] [address] [place], [place] [id number] Seaming Machine Operator Physical Therapy 12/12/20 documented as of this encounter
--- OUTSIDE RECORDS SUMMARY | 2024-07-12 08:51 | XMS_ITS | Encounter Summary ---
Author Organization [facility] Address [address] [place] [address] Phone Care Team Providers Care Excel Developer Name Role Phone Enmanuel Gan MD Primary Care Provider Tg Houston MD Unavailable [phone] Guerrero Hunter DPT Unavailable [phone] Encounter Details Date Type Department Care Team (Late st Contact Info) Description 12/03/2020 Telephone [facility] Orthopaedic Surgery [address] [facility] Medicine 6th [place] [address] [place] [address] Jeremy Michelle MD [address] [facility] [address] [place] [address] Social History Tobacco Use Types Packs/Day Years [...] you attend [facility] or uatsdin services? 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 Discussed a couple of falls she had and her residual effects from the falls. Patient states she feels it is nerve irritation and it is intermittent. She states she is betterand just wanted to call to notify the office. Instructed patient is she has increased pain, loss offeeling or balance issues she needs to be evaluated in the ER. She verbalized understanding. documented in this encounter Plan of Treatment Not on file documented as of this encounter Visit Diagnoses Not on filedocumented in this encounter Care Teams Excel Developer Relationship Specialty Start Date End Date Enmanuel Gan MD [address] [facility] [address] [place] [address] PCP - General Internal Medicine 04/26/20 Tg Houston MD [address] [facility] [address] [place] [address] Consulting Physician Cardiology 07/18/20 Guerrero Hunter DPT [address] [facility] [address] [place] [address] Physical Therapist Physical Therapy 11/08/20 documented as of this encounter
--- OUTSIDE RECORDS SUMMARY | 2024-07-12 08:51 | XMS_ITS | Encounter Summary ---
Author Organization [facility] Address [address] [place] [address] Phone Care Team Providers Care Activities Specialist Name Role Phone Enmanuel Gan MD Primary Care Provider Tg Houston MD Unavailable [phone] Guerrero Hunter DPT Unavailable [phone] Encounter Details Date Type Department Care Team (Late st Contact Info) Description 11/21/2020 Telephone [facility] Orthopaedic Surgery [address] [facility] Medicine 6th [place] [address] [place] [address] Jeremy Michelle MD [address] [facility] [address] [place] [address] Social History Tobacco Use Types Packs/Day Years [...] 07/30/2020 How often do you attend [facility] or restorationist services? 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 Instructed patient to check with PCP to discuss resuming the pain management. Will discuss with Dr. Michelle about a refill for the tramadol as requested. Patient is now 5 months post op s/p PSIF revision. Awaiting reply. documented in this encounter Plan of Treatment Not on file documented as of this encounter Visit Diagnoses Not on filedocumented in this encounter Care Teams Activities Specialist Relationship Specialty Start Date End Date Enmanuel Gan MD [address] [facility] [address] [place] [address] PCP - General Internal Medicine 04/26/20 Tg Houston MD [address] [facility] [address] [place] [address] Consulting Physician Cardiology 07/18/20 Guerrero Hunter DPT [address] [facility] [address] [place] [address] Physical Therapist Physical Therapy 11/08/20 documented as of this encounter
--- OUTSIDE RECORDS SUMMARY | 2024-07-12 08:51 | XMS_ITS | Encounter Summary ---
Author Organization [facility] Address [address] [place] [address] Phone Care Team Providers Care Research And Development Tester Name Role Phone Enmanuel Gan MD Primary Care Provider [phone] Tg Houston MD Unavailable [phone] Reason for Referral * Diagnostic Imaging (Routine) - Closed Specialty Diagnoses / Procedures Referred By Contac t Referred To Contact Diagnoses Follow-up examination following surgery Procedures XR Scoliosis 6 or More Views Jeremy Michelle MD [address] [facility] [place] [address] Phone: tel: fax: [facility] [address] [place] [address] Referral ID Status Reason Start Date Expiration Date Visits Re quested Visits Authorized [id number] Closed 11/05/2020 12/05/2021 1 1 Encounter Details Date Type Department Care Team (Late st Contact Info) Description 11/05/2020 Orders Only [facility] Orthopaedic Surgery [address] [facility] 6th [place] [address] [place] [address] Jeremy Michelle MD [address] [facility] [place] [address] Follow-up examination following surgery (Primary Dx) Social [...] attend chur ch or confucianism services? 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 Electronically signed by: Yemi Francis M.D. us Jeremy Michelle MD IMG XR PROCEDURES Fi nal Result documented in this encounter Visit Diagnoses Diagnosis Follow-up examination following surgery- Primary Follow-up examination following surgery documented in this encounter Care Teams Research And Development Tester Relationship Specialty Start Date End Date Enmanuel Gan MD [address] [place] [address] PCP - General Internal Medicine 04/26/20 Tg Houston MD [address] [facility] [address] [place] [address] Consulting Physician Cardiology 07/18/20 documented as of this encounter
--- OUTSIDE RECORDS SUMMARY | 2024-07-12 08:51 | XMS_ITS | Encounter Summary ---
Author Organization [facility] [place] Address [address] [place] [address] Phone Care Team Providers Care Green Pipefitter Name Role Phone Enmanuel Gan MD Primary Care Provider [phone] Tg Houston MD Unavailable [phone] Guerrero Hunter DPT Unavailable [phone] Guerrero Weiner PRIMING MACHINE OPERATOR Unavailable [phone] Reason for Visit * Reason Comments PT Treatment * Consultation (Routine) - Closed Specialty Diagnoses / Procedures Referred By Contac t Referred To Contact Physical Therapy Diagnoses Post-operative pain S/P spinal fusion Jeremy Michelle MD [address] [facility] [place] [address] Phone: tel: fax: [facility] (All Locations) Referral ID Status Reason Start Date Expiration Date V isits Requested Visits Authorized [id number] Closed Specialty Services Required 11/02/2020 11/02/2021 24 24 Encounter Details Date Type Department Care Team (Late st Contact Info) Description 01/02/2021 4:30 PM CDT Therapy [facility] Physical Therapy [address] [facility] 1st [address] [place] [address] Guerrero Weiner, PRIMING MACHINE OPERATOR [address] [facility] [address] [place] [address] Post-operative pain (Primary Dx) Social History Tobacco [...] file 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 Passed screening determines patient has no current fever, cough, SOB, loss of sense of taste or sense of smell, body aches, or sore throat. Patient has not been exposed to anyone suspected of having COVID-19 in the past 14 days. Subjective: Patient reports she is feeling better than she was last week. She has noticed some tightness/achy in her shoulder/traps, though. She tried wearing her brace, but did not tolerate it well so did not keep it on long. Does not think she needs it now due to the little flare up being over. Performance of HEP: Performing them about 1x/day, they feel pretty good. She would like some more things to do. 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 HEP THERAPEUTIC EXERCISE Parameters Comments x x Supine low ab activation with unilateral hip flexion VR x sidelying hip abd/LR 1-3 second hold per rep 2 pillows between knees 2-3 folded towels under lumbar spine VR x Sitting knee extension Seated in a chair Folded towel supporting distal femur Cue to prevent femoral medial rotation x x Sit to/from stand Green TB above knee 1 pillow x x Side stepping Green TB above knees x x Hooklying shoulder flexion Red TB x x Modified quad rock Throughout the day VR x Shoulder flexion wall slides For decompression NEW NEW Side step abdominal isometric Single pull Red TB Anti-Rotation NEW NEW Straight arm pull down Red TB over [...] laundry Patient requests emails be sent to: [email or web address] Assessment/Plan: Patient presents this date with report of improving symptoms, noting less pain and better activity tolerance. She was able to perform and progress exercises with moderate cuing to ensure proper muscle activation/stretching. Continued with education on appropriate exercises and technique. She verbalized good mindfulness and awareness of recommendations for posture and alignment. No increase in symptoms throughout and after the treatment. Patient would benefit from continued skilled therapy for education and progression of strength to work towards goals and return to normal functional abilities. Total Treatment Time: 39 minutes Treatment this date was provided by a licensed Physical Therapist It Consulting Manager. There was on-site supervision of the Physical Therapist It Consulting Manager by a Physical Therapist when the treatment was performed. Guerrero Weiner PTA Cosigned by Lorena Jaramillo DPT at 01/02/2021 5:40 PM CDT documented in this encounter Plan of Treatment Not on file documented as of this encounter Visit Diagnoses Diagnosis Post-operative pain- Primary Other acute postoperative pain documented in this encounter Care Teams Green Pipefitter Relationship Specialty Start Date End Date Enmanuel Gan MD [address] [facility] [address] [employer]NAL MEDICINE [place], [place] [id number] PCP - General Internal Medicine 04/26/20 Tg Houston MD [address] [facility] [address] [place] [address] Consulting Physician Cardiology 07/18/20 Guerreor Hunter DPT [address] [facility] [address] [facility] [place] [address] Physical Therapist Physical Therapy 11/08/20 Guerrero Weiner PTA [address] [facility] [address] [place] [address] Manuscripts Curator Physical Therapy 12/12/20 documented as of this encounter
--- OUTSIDE RECORDS SUMMARY | 2024-07-12 08:51 | XMS_ITS | Encounter Summary ---
Author Organization [facility] Address [address] [place] [address] Phone Care Team Providers Care Human Factors Scientist Name Role Phone Enmanuel Gan MD Primary Care Provider [phone] Tg Houston MD Unavailable [phone] Guerrero Hunter DPT Unavailable [phone] Guerrero Weiner LEARNING ADMINISTRATOR Unavailable [phone] Reason for Visit * Audiology (Routine) - Closed Specialty Diagnoses / Procedures Referred By Contac t Referred To Contact Audiology Diagnoses Sensorineural hearing loss, bilateral Procedures Evaluation, cochlear implant programming and auditory rehabilitation per [facility] adult cochlear implant protocol Darshana Toth MD [address] [facility] [address] [place] [address] Phone: tel: fax: [facility] Otolaryngology [address] [facility] 11th [place] [address] [place] [address] Phone: tel: fax: Referral ID Status Reason Start Date Expiration Date Visits Re quested Visits Authorized [id number] Closed 04/30/2020 05/30/2021 12 12 Encounter Details Date Type Department Care Team (Latest Contact Info) Description 01/07/2021 9:30 AM CDT Procedure visit [facility] Otolaryngology [address] 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 COUCH(RE): Widex YURI, outside provider ? SERVICES PROVIDED:??6 Month Evaluation of auditory function, post-CI (Time 9:30- 10:30) and Subsequent??Programming ?? PROCEDURES: The patient attended the session alone. She reports ongoing back issues. She has not done listening exercises, but believes she is improving She has been turning the volume up consistently. Evaluation: Testing was completed to assess the patient's current detection of sound and speech understanding and to compare to previous results. RE was plugged during CI only testing. Patient was using: P2, map 12, volume 7, sensitivity 12 Sound field Thresholds 250 177 997 8852 1500 2000 3000 4000 6000 Hz CI LE 22 28 32 26 24 28 22 18 14 dB HL *() indicates results from the previous evaluation CNC Words @ 60 dB SPL: CI:LE List: 3 Word Total: 68% (66%) Phoneme Total: 75% (80%) AzBio Sentences @ 60 dB SPL: CI:LE List: 11 Total: 77% (71%) [employer] Sentences @ 60 dB SPL+10 SNR MB: CI:LE List: 11 Total: 67% (17% pre-CI) CI+COUCH List: 12 Total: 79% (67% pre-CI) Aided soundfield thresholds were good and indicate good audibility for speech. Scores on words and sentences were better compared to preoperative testing. Results of testing were discussed with the patient. Postoperative Audiogram: DNT test - only 2 profound thresholds post-CI. ?? Programming: Programming was??completed to optimize current map parameters and to ensure optimal settings.?See custom sound??software for details this date. ?? A head check was completed and magnet site was red with indentation. ?? Impedances were measured and were??all okay??and stable. Patient's preferred map was opened: map 9. C levels were swept and balanced; rated medium-soft. No changes were made. T levels were swept and balanced at 25%; rated very-soft. Some changes were made. Difficulty balancing in E16-13 region, where CLs vary. When live, T&Cs+2 as patient had been increasing the volume to 9-10. Following change volume was still comfortable and did not want additional volume. Together with COUCH, volume was comfortable and balanced. This was saved and Programs were loaded as indicated above. Backup sound processor (white Kanso 2) was programmed identically. ?? 2 - TV Streamers paired with Dunlap Kanso 2. This time spent in evaluation of auditory function, post-CI does not include time spent on cochlearimplant programming or reprogramming. The note as documented above reflects my personal service. ? IMPRESSIONS/PLAN: Return for 12 month evaluation or sooner if needed documented in this encounter Plan of Treatment Not on file documented as of this encounter Visit Diagnoses Diagnosis Sensorineural hearing loss, bilateral documented in this encounter Orders Audiology Count Last Ordered Date First Orde red Date EVALUATION, COCHLEAR IMPLANT PROGRAMMING AND AUDITORY REHABILITATION 1 01/04/2021 documented in this encounter Care Teams Human Factors Scientist Relationship Specialty Start Date End Date Enmanuel Gan MD [address] [place] [address] PCP - General Internal Medicine 04/26/20 Tg Houston MD [address] [facility] [address] [place] [address] Consulting Physician Cardiology 07/18/20 Guerrero Hunter DPT [address] [facility] [address] [address] Physical Therapist Physical Therapy 11/08/20 Guerrero Weiner, ELIAN [address] [address] [place] [address] Schedule Maker Physical Therapy 12/12/20 documented as of this encounter
--- OUTSIDE RECORDS SUMMARY | 2024-07-12 08:52 | XMS_ITS | Encounter Summary ---
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) Procedures EMG/NCV -Please select the performing region: [facility] (All Locations); Procedure performed at: [facility] Ortho Physiatry Jeremy Michelle MD [address] [facility] [place] [address] Phone: tel: fax: [facility] (All Locations) Referral ID Status Reason Start Date Expiration Date Visits Re quested Visits Authorized [id number] Closed 10/17/2020 11/16/2021 1 1 Encounter Details Date Type Department Care Team (Late st Contact Info) Description 10/17/2020 Telephone [facility] Orthopaedic Surgery [address] [place] [address] [facility] 6th [place] [address] [place] [id number] Jeremy Michelle MD [address] [facility] [place] [address] Social History Tobacco Use Types Packs/Day Years [...] file Legal 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 Gender Identity Not on file Sexual Orientation Lesbian 05/24/2019 9: 06 AM CDT documented as of this encounter Ordered Prescriptions Prescription Sig Dispense Quantity Refills Last Filled Start Date End Date baclofen (LIORESAL) 10 mg tabletIndications: Post-operative pain Take 1 tablet (10 mg total) by mouth 2 (two) times a day 90 tablet 1 10/17/2020 1 methylPREDNISolone (MEDROL DOSEPACK) 4 mg Dosepack Take as directed on package 1 packet 10/17/2020 1 documented in this encounter Miscellaneous Notes * Telephone Encounter - Cyndie Byers RN - 10/17/2020 10:49 AM CDT Call to patient and she reports symptoms r/t 2nd COVID shot. She also states she is continuing to have the same pain in her legs that is becoming debilitating to he daily activity. Per Dr. Michelle's notes for follow up: her CT looks great. I do not see a good reason for new or worse L2/3 type pain on the right. Her foramen are not huge but they look ok and I felt them intraop when we were done to be sure nerves were ok. Please call her - if she still has this pain, I would suggest a dose ashley, repeat BL LE EMG, and repeat L spine MRI WO. Patient agreed with this plan, sent rx to pharmacy and ordered/ scheduled testing. 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 (CMS/HCC) documented in this encounter Discontinued Medications Medication Sig Discontinue Reason Start Date End Da te baclofen (LIORESAL) 10 mg tablet TAKE 1 TABLET BY MOUTH EVERY EIGHT HOURS Reorder 10/15/2020 10/17/2020 documented as of this encounter Care Teams Trailer Park Manager Relationship Specialty Start Date End Date Enmanuel Gan MD [address] [place] [address] PCP - General Internal Medicine 04/26/20 Tg Houston MD [address] [facility] [address] [place] [address] Consulting Physician Cardiology 07/18/20 documented as of this encounter
--- OUTSIDE RECORDS SUMMARY | 2024-07-12 08:52 | XMS_ITS | Encounter Summary ---
Author Organization [facility] Address [address] [place] [address] Phone Care Team Providers Care Drilling And Production Superintendent Name Role Phone Enmanuel Gan MD Primary Care Provider [phone] Tg Houston MD Unavailable [phone] Reason for Referral * Diagnostic Imaging (Routine) - Closed Specialty Diagnoses / Procedures Referred By Contac t Referred To Contact Diagnoses Follow-up examination following surgery Procedures XR Scoliosis AP LAT Jeremy Michelle MD [address] [facility] [place] [address] Phone: tel: fax: [facility] [address] [place] [address] Referral ID Status Reason Start Date Expiration Date Visits Re quested Visits Authorized [id number] Closed 10/01/2020 10/31/2021 1 1 RVISOR PHOTOCOMPOSITION Encounter Details Date Type Department Care Team (Late st Contact Info) Description 10/01/2020 Orders Only [facility] Orthopaedic Surgery [address] [facility] 6th [place] [address] [place] [address] Jeremy Michelle MD [address] [facility] [place] [address] Follow-up examination following surgery (Primary Dx) Social [...] often do you attend chur ch or quaker services? Never 07/30/2020 Do you belong to [...] file Legal Sex Female 9:09 PM SUPERVISOR PHOTOCOMPOSITION Gender Identity Not on file Sexual Orientation Lesbian 05/24/2019 9: 06 AM CDT documented as of this encounter Plan of Treatment Not on file documented as of this encounter Results * XR Scoliosis AP LAT (10/02/2020 9:55 AM SUPERVISOR PHOTOCOMPOSITION) Anatomical Region Laterality Modality Spine N/A Computed Radiogr aphy 10/02/2020 10:3 3 AM SUPERVISOR PHOTOCOMPOSITION Impressions 10/02/2020 11:10 PM SUPERVISOR PHOTOCOMPOSITION 1. ??Unchanged posterior decompression and revised posterior instrumented fusion of L1-L4, non-instrumented posterior spinal fusion of L4-S1, and combined discectomy with interbody fusion of L2-S1. 2. ??Thoracolumbar flatback deformity with mild anterior sagittal imbalance. ??Dictated by: Lexus Miller The radiology attending physician has personally reviewed this study, and had reviewed and/or edited this written report and agrees with it. Electronically signed by: Panchito Baptiste M.D. Narrative 10/02/2020 11:10 PM SUPERVISOR PHOTOCOMPOSITION EXAMINATION: 1. Scoliosis series AP and lateral. HISTORY: Lumbar fusion FINDINGS: Standing, AP and lateral views of the entire spine and lower extremities were digitally acquired using the EOS system. Comparison is made to prior study dated 07/10/2020. There is unchanged revised posterior instrumented spinal fusion from L1 through L4 with posterior decompression. There is unchanged noninstrumented posterior spinal fusion and posterior decompression from L4 to S1.Unchanged discectomy with interbody fusion at L2-S1. Coronal balance is normal. ??No pelvic obliquity. ??There is thoracolumbar flatback deformity with mild anterior sagittal imbalance. ??There is mild degenerative disc disease at the nonfused levels. No acute compression fracture is present. Bilateral total hip arthroplasties are present. Cholecystectomy clips are present in the right upper quadrant. Procedure Note Panchito Baptiste MD - 10/02/2020 EXAMINATION: 1. Scoliosis series AP and lateral. HISTORY: Lumbar fusion FINDINGS: Standing, AP and lateral views of the entire spine and lower extremities were digitally acquired using the EOS system. Comparison is made to prior study dated 07/10/2020. There is unchanged revised posterior instrumented spinal fusion from L1 through L4 with posterior decompression. There is unchanged noninstrumented posterior spinal fusion and posterior decompression from L4 to S1.Unchanged discectomy with interbody fusion at L2-S1. Coronal balance is normal. No pelvic obliquity. There is thoracolumbar flatback deformity with mild anterior sagittal imbalance. There is mild degenerative disc disease at the nonfused levels. No acute compression fracture is present. Bilateral total hip arthroplasties are present. Cholecystectomy clips are present in the right upper quadrant. IMPRESSION: 1. Unchanged posterior decompression and revised posterior instrumented fusion of L1-L4, non-instrumented posterior spinal fusion of L4-S1, and combined discectomy with interbody fusion of L2-S1. 2. Thoracolumbar flatback deformity with mild anterior sagittal imbalance. Dictated by: Lexus Miller The radiology attending physician has personally reviewed this study, and had reviewed and/or edited this written report and agrees with it. Electronically signed by: Panchito Baptiste M.D. Jeremy Michelle MD IMG XR PROCEDURES Fi nal Result documented in this encounter Visit Diagnoses Diagnosis Follow-up examination following surgery- Primary Follow-up examination following surgery documented in this encounter Care Teams Drilling And Production Superintendent Relationship Specialty Start Date End Date Enmanuel Gan MD [address] [place] [address] PCP - General Internal Medicine 04/26/20 Tg Houston MD [address] [facility] [address] [place] [address] Consulting Physician Cardiology 07/18/20 documented as of this encounter
--- OUTSIDE RECORDS SUMMARY | 2024-07-12 08:52 | XMS_ITS | Encounter Summary ---
Author Organization [facility] Address [address] [place] [address] Phone Care Team Providers Care Home Health Clinician Name Role Phone Enmanuel Gan MD Primary Care Provider Tg Houston MD Unavailable [phone] Reason for Referral * Diagnostic Imaging (Routine) - Closed Specialty Diagnoses / Procedures Referred By Contac t Referred To Contact Radiology Diagnoses Follow-up examination following surgery Procedures CT Thoracic and Lumbar Spine WO Contrast Jeremy Michelle MD [address] [place] [address] Phone: tel: fax: [facility] [address] [place] [address] Referral ID Status Reason Start Date Expiration Date Visits Re quested Visits Authorized [id number] Closed 10/02/2020 11/01/2021 1 1 FIBER TAKER OFF Encounter Details Date Type Department Care Team (Late st Contact Info) Description 10/02/2020 9:40 AM HEMP FIBER TAKER OFF Office Visit [facility] Orthopaedic Surgery [address] [facility] 12th [place] [address] [place] [address] Jeremy Michelle MD [address] [facility] [place] [address] Follow-up examination following surgery (Primary Dx) Social [...] on file Legal Sex Female 9:09 PM HEMP FIBER TAKER OFF Gender Identity Not on file Sexual Orientation Lesbian 05/24/2019 9: 06 AM CDT documented as of this encounter Patient Instructions * Patient Instructions* Cyndie Byers RN - 10/02/2020 9:40 AM HEMP FIBER TAKER OFF Thank you for your visit today we are pleased to be here to assist with your spine needs. Call me 2 days after to remind Dr. Michelle to view Sincerely, Dr. Jeremy Michelle & Cyndie Byers RN Please contact Dr. Miguel Angel Agee's Nurse if you have any questions. Mail disc to: Orthopedics Attn: Cyndie/ Dr. Michelle [address] [place] [address] FIBER TAKER OFF FIBER TAKER OFF documented in this encounter Progress Notes * Jeremy Michelle MD - 10/02/2020 9:40 AM CST Images from the original note were not included. Established Patient Visit Interim History Macie Briseno returns to our office today for 10 weeks out from revision decompression and revision of fusion for nonunion. She was doing well early on and says over the last month she has had more pain in the right leg in the L2 and L3 type areas. I was surprised as I was expecting her to keep getting better. She has not been sick and incision has been well healed with no signs of infection. Physical Examination On exam she is intact bilateral upper and lower extremities C5 through T1 and L2 through S1 with 5-on the right iliopsoas limited by pain. She describes pain in the L2 and L3 distribution on the right leg although she is sensory intact tolight touch throughout bilateral lower extremities L2 through S1 Negative straight leg raise and no pain on hip range of motion Review of Plain Radiographs/Studies Plain films were reviewed by me. No change in alignment or placement of hardware. Impression/Diagnosis L2-3 radiculopathy, right side Treatment Plan Patient is 10 weeks out from above. She does seem to have some right L2-3 nerve irritation. I want to get a CT to make sure this is not related to hardware bone graft or change in foramen. It would be unusual for this to be related to a screw as she did well early on in his only other problem in the last 4-5 weeks. However she could have a piece of bone grafter something else in the foramen causing these issues. We will decide on next steps once we get the CT. She cannot do with gabapentin because it makes her legs swell, she has tried some oxycodone but would like to try tramadol for okay with that. We will write her script for tramadol today. - we are going to get a CT of her lumbar spine without contrast to evaluate bone graft and hardware. She has pretty specific L2-3 pain on the right side that seems worse in the last 4 weeks. We packed graft in where she had deficits so it is possible that there is bone graft in the foramen or something like this. - she is going to let us know in the CT is done because then I will look at it myself and decide onwhether we need to do an MRI or an EMG or even a steroid dose pack depending on what it looks like. - we can plan on a usual follow-up at her 6 month time point but it is likely will see her before then to talk about how she is doing ADDENDUM: CT reviewed. Foramen appear patent. Screws in appropriate position. I do not see a reasonfor worsening L2/3 pain on the right. Will obtain MRI L spine WO and EMG BL LE (to compare to 07/15) and offer pt dose ashley if still painful. Jeremy Michelle MD PhD Data Entry Supervisor of Orthopaedic Pattern Data OperatorData Entry Supervisor of Neurological Surgery [facility] in [facility], [place] Production Administrative Assistant done by [employer]; therefore, variances and inaccuracies may occur. I reviewed the patient problem list pertinent to the visit today, but the entire patient problem list was not reviewed today. documented in this encounter Plan of Treatment Not on file documented as of this encounter Results * CT Thoracic and Lumbar Spine WO Contrast (10/11/2020 4:28 PM CDT) Anatomical Region Laterality Modality Spine N/A Computed Tomogra phy 10/11/2020 5:12 PM CDT Impressions 10/11/2020 5:21 PM CDT 1. L1-L4 instrumented spinal fusion with posterior decompression from L2-S1. L4-L5 and L5-S1 interbody bone devices are well incorporated. L3-L4 interbody bone device is partially incorporated. There is lack of incorporation of interbody bone device at L2-L3 with minimal progression of endplate erosions and reduction of the L2 and L3 vertebral body height. This may be degenerative/related to motion, although discitis cannot be excluded. Clinical correlation and short-term imaging follow-up could be performed for reevaluation if clinically indicated. 2. Spinal canal is decompressed posteriorly with moderate residual neural foraminal stenosis at L2-3 and L5-S1 as detailed above. 3. Multilevel degenerative disc disease without significant spinal canal or neural foraminal stenosis in thoracic spine. Dictated by: Kenton Ortiz M.D. The radiology attending physician has personally reviewed this study, and had reviewed and/or edited this written report and agrees with it. Electronically signed by: Jose L Coleman M.D. Narrative 10/11/2020 5:21 PM CDT EXAMINATION: CT THORACIC AND LUMBAR SPINE WO CONTRAST HISTORY: Interval revision of posterior spinal fusion. TECHNIQUE: CT of the thoracic and lumbar spine was performed according to standard protocols without intravenous contrast. Contrast Information: None COMPARISON: MRI lumbar spine dated 05/21/[address] spine dated 05/17/2020. FINDINGS: There are 12 rib-bearing thoracic vertebrae. Mild dextrocurvature of thoracic spine. Multilevel mild facet arthropathy is seen. Cholecystectomy clips are noted. There is no acute fracture. Vertebral bodies are normal in height without compression fractures. There are multilevel degenerative disc disease, most marked at T11-T12 without any significant spinal canal stenosis. There is no soft tissue abnormality. The abdominal aorta shows calcific atherosclerosis. Interval revised posterior spinal fusion from the level of L1-L4. No fracture of the instrumentation. Mild lucency surrounding the right L2 through and lucency adjacent to left L2 screw is likely a prior screw tract. Retrolisthesis at L2-L3 and grade 1 anterolisthesis at L4-5. Unchanged levocurvature of lumbar spine. ??Laminectomies from L2-L5. Incorporated interbody bone devices at L4-L5 and L5-S1 vertebral levels and partial incorporated interbody bone devices at L3-4, lack of incorporation at L2-3 with continued end plate sclerosis and increased height loss of L2-L3 vertebral bodies with endplate irregularities. Significant degenerative disc disease with calcified disc/bony material protruding posteriorly at disc level into the spinal canal measuring up to 7 mm, unchanged from prior study. There is osseous fusion of posterior elements on the right L3-S1 and left L4-S1, unchanged. Prior screw tracks at L5 and S1 are visualized bilaterally. L1-L2: The disc is normal in configuration. There is mild bilateral facet arthropathy. There is mild bilateral neuroforaminal stenosis. There is no spinal canal stenosis. L2-L3: Decompressed posteriorly. There is moderate bilateral neuroforaminal stenosis. There is no spinal canal stenosis. L3-L4: Decompressed posteriorly. There is no neuroforaminal stenosis. There is no spinal canal stenosis. L4-L5: Decompressed posteriorly. There is no neuroforaminal stenosis. There is no spinal canal stenosis. L5-S1: Decompressed posteriorly. There is moderate right and mild left neuroforaminal stenosis. There is no spinal canal stenosis. Procedure Note Jose L Coleman MD - 10/11/2020 EXAMINATION: CT THORACIC AND LUMBAR SPINE WO CONTRAST HISTORY: Interval revision of posterior spinal fusion. TECHNIQUE: CT of the thoracic and lumbar spine was performed according to standard protocols without intravenous contrast. Contrast Information: None COMPARISON: MRI lumbar spine dated 05/21/[address] spine dated 05/17/2020. FINDINGS: There are 12 rib-bearing thoracic vertebrae. Mild dextrocurvature of thoracic spine. Multilevel mild facet arthropathy is seen. Cholecystectomy clips are noted. There is no acute fracture. Vertebral bodies are normal in height without compression fractures. There are multilevel degenerative disc disease, most marked at T11-T12 without any significant spinal canal stenosis. There is no soft tissue abnormality. The abdominal aorta shows calcific atherosclerosis. Interval revised posterior spinal fusion from the level of L1-L4. No fracture of the instrumentation. Mild lucency surrounding the right L2 through and lucency adjacent to left L2 screw is likely a prior screw tract. Retrolisthesis at L2-L3 and grade 1 anterolisthesis at L4-5. Unchanged levocurvature of lumbar spine. Laminectomies from L2-L5. Incorporated interbody bone devices at L4-L5 and L5-S1 vertebral levels and partial incorporated interbody bone devices at L3-4, lack of incorporation at L2-3 with continued end plate sclerosis and increased height loss of L2-L3 vertebral bodies with endplate irregularities. Significant degenerative disc disease with calcified disc/bony material protruding posteriorly at disc level into the spinal canal measuring up to 7 mm, unchanged from prior study. There is osseous fusion of posterior elements on the right L3-S1 and left L4-S1, unchanged. Prior screw tracks at L5 and S1 are visualized bilaterally. L1-L2: The disc is normal in configuration. There is mild bilateral facet arthropathy. There is mild bilateral neuroforaminal stenosis. There is no spinal canal stenosis. L2-L3: Decompressed posteriorly. There is moderate bilateral neuroforaminal stenosis. There is no spinal canal stenosis. L3-L4: Decompressed posteriorly. There is no neuroforaminal stenosis. There is no spinal canal stenosis. L4-L5: Decompressed posteriorly. There is no neuroforaminal stenosis. There is no spinal canal stenosis. L5-S1: Decompressed posteriorly. There is moderate right and mild left neuroforaminal stenosis. There is no spinal canal stenosis. IMPRESSION: 1. L1-L4 instrumented spinal fusion with posterior decompression from L2-S1. L4-L5 and L5-S1 interbody bone devices are well incorporated. L3-L4 interbody bone device is partially incorporated. There is lack of incorporation of interbody bone device at L2-L3 with minimal progression of endplate erosions and reduction of the L2 and L3 vertebral body height. This may be degenerative/related to motion, although discitis cannot be excluded. Clinical correlation and short-term imaging follow-up could be performed for reevaluation if clinically indicated. 2. Spinal canal is decompressed posteriorly with moderate residual neural foraminal stenosis at L2-3 and L5-S1 as detailed above. 3. Multilevel degenerative disc disease without significant spinal canal or neural foraminal stenosis in thoracic spine. Dictated by: Kenton Ortiz M.D. The radiology attending physician has personally reviewed this study, and had reviewed and/or edited this written report and agrees with it. Electronically signed by: Jose L Coleman M.D. us Jeremy Michelle MD IMG CT PROCEDURES Fi nal Result documented in this encounter Visit Diagnoses Diagnosis Follow-up examination following surgery- Primary Follow-up examination following surgery documented in this encounter Care Teams Home Health Clinician Relationship Specialty Start Date End Date Enmanuel Gan MD [address] [place] [address] PCP - General Internal Medicine 04/26/20 Tg Houston MD [address] [facility] [address] [place] [address] Consulting Physician Cardiology 07/18/20 documented as of this encounter
--- OUTSIDE RECORDS SUMMARY | 2024-07-12 08:52 | XMS_ITS | Encounter Summary ---
Author Organization [facility] Address [address] [place] [address] Phone Care Team Providers Care Food Services Director Name Role Phone Enmanuel Gan MD Primary Care Provider Tg Houston MD Unavailable [phone] Encounter Details Date Type Department Care Team (Late st Contact Info) Description 10/10/2020 Telephone [facility] Otolaryngology [address] [facility] 11th [place] [address] [place] [address] Marissa Sanchez BS Social History Tobacco Use Types Packs/Day [...] on file Legal 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 Patient confirmed she did receive the TV streamer at home. She was told to bring the TV streamer with her to her next appointment for assistance with pairing. She will also bring the RMA paperwork that was included with the TV streamer just in case we need to reference the order number at a laterdate. Sharon was further informed that we will return the Phone Clip on her behalf. [employer] shipping label for the return will be emailed to me by Marla from [employer]. documented in this encounter Plan of Treatment Not on file documented as of this encounter Visit Diagnoses Not on filedocumented in this encounter Care Teams Food Services Director Relationship Specialty Start Date End Date Enmanuel Gan MD [address] [place] [address] PCP - General Internal Medicine 04/26/20 Tg Houston MD [address] [facility] [address] [place] [address] Consulting Physician Cardiology 07/18/20 documented as of this encounter
--- OUTSIDE RECORDS SUMMARY | 2024-07-12 08:52 | XMS_ITS | Encounter Summary ---
Author Organization [facility] Address [address] [place] [address] Phone Care Team Providers Care Artificial Log Machine Operator Name Role Phone Enmanuel Gan MD Primary Care Provider [phone] Tg Houston MD Unavailable [phone] Reason for Referral * Consultation (Routine) - Closed Specialty Diagnoses / Procedures Referred By Contac t Referred To Contact Physical Therapy Diagnoses Post-operative pain S/P spinal fusion Jeremy Michelle MD [address] [facility] [address] [place] [address] Phone: tel: fax: [facility] (All Locations) Referral ID Status Reason Start Date Expiration Date V isits Requested Visits Authorized [id number] Closed Specialty Services Required 11/02/2020 11/02/2021 24 24 Question Answer PTRFR PT Evaluate and Treat Reason for Visit posterior spinal fusion T12-L4 revision Therapy options discussed with patient? Yes Location provided for therapy services is: Patient requested/Patient preferred Please select the performing region: [facility] (All Locations) [167] # of visits: 24 Comments Gait training Balance Strengthening Pain Modalities Call [phone] with questions For all PT reports that require a signature-please fax to [phone] For all other PT progress notes-please fax to [phone] Encounter Details Date Type Department Care Team (Late st Contact Info) Description 11/02/2020 Orders Only [facility] Orthopaedic Surgery [address] [facility] 6th [place] [address] [place] [address] Jeremy Michelle MD [address] [facility] [address] [place] [address] Post-operative pain (Primary Dx) Social History Tobacco [...] any clubs o r organizations such as yarsanism groups, unions, fraternal or athletic groups, or [...] on file 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 Gender Identity Not on file Sexual Orientation Lesbian 05/24/2019 9: 06 AM CDT documented as of this encounter Plan of Treatment Scheduled Referrals Name Type Priority Associated Diagnoses Order Schedule Ambulatory referral order to Physical Therapy - Outpatient Referral Routine Post-operative pain Expected: 11/16/2020 (Approximate), Expires: 11/02/2021 documented as of this encounter Visit Diagnoses Diagnosis Post-operative pain- Primary Other acute postoperative pain documented in this encounter Care Teams Artificial Log Machine Operator Relationship Specialty Start Date End Date Enmanuel Gan MD [address] [facility] [address] [place] [address] PCP - General Internal Medicine 04/26/20 Tg Houston MD [address] [facility] [address] [place] [address] Consulting Physician Cardiology 07/18/20 documented as of this encounter
--- OUTSIDE RECORDS SUMMARY | 2024-07-12 08:52 | XMS_ITS | Encounter Summary ---
Author Organization [facility] Healthcare Address [address] [place] [address] Care Team Providers Care Filter Tank Operator Name Role Phone Enmanuel Gan MD Primary Care Provider [phone] Tg Houston MD Unavailable Reason for Referral * Diagnostic Imaging (Routine) - Closed Specialty Diagnoses / Procedures Referred By Contac t Referred To Contact Radiology Diagnoses Post-operative pain Procedures MRI Lumbar Spine WO Contrast Jeremy Michelle MD [address] [place] [address] Phone: tel: fax: [address] [address] Referral ID Status Reason Start Date Expiration Date Visits Re quested Visits Authorized [id number] Closed 10/17/2020 11/16/2021 1 1 Reason for Visit * Diagnostic Imaging (Routine) - Closed Specialty Diagnoses / Procedures Referred By Contac t Referred To Contact Radiology Diagnoses Post-operative pain Procedures MRI Lumbar Spine WO Contrast Jeremy Michelle MD [address] [place] [address] Phone: tel: fax: [address] [place] [address] Referral ID Status Reason Start Date Expiration Date Visits Re quested Visits Authorized [id number] Closed 10/17/2020 11/16/2021 1 1 Encounter Details Date Type Department Care Team (Latest Contact Info) Description 10/30/2020 11:10 AM CDT - 10/30/2020 11:59 PM CDT Hospital Encounter [facility] [address] [place] [address] Jeremy Michelle MD [address] [facility] /6B/12A [place] [address] Post-operative pain Discharge Disposition: Discharge to home or [...] on file 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 There is no significant residual spinal canal stenosis. Dictated by: Atiya Lucia M.D. The radiology attending physician has personally reviewed this study, and had reviewed and/or edited this written report and agrees with it. Electronically signed by: Lashonda Harris M.D. Narrative 10/30/2020 2:22 PM CDT EXAMINATION: Magnetic resonance imaging (MRI) of the lumber spine without contrast. HISTORY: 75-year-old woman status post revision posterior instrumented fusion in June 2020. TECHNIQUE: Multiplanar multi-weighted MRI of the lumbar spine was performed without intravenous contrast using the standard lumbar spine protocol. COMPARISON: Comparison is made to a prior CT scan dated 10/11/2020. FINDINGS: There are postsurgical changes of revision posterior instrumented fusion of L1-L4 with combined interbody fusion of L2-S1. There are changes of prior laminectomies from L1 to L5. There is diffuse stranding within the subcutaneous tissues of the lower back without evidence of an organized collection. There is mild retrolisthesis of L2 on L3 and grade 1 anterolisthesis of L4 on L5. There is T1 and T2 signal hyperintensity involving all the vertebral body endplates compatible with Modic type II changes. The conus medullaris terminates at the level of L1. The distal spinal cord signal intensity is normal. There is minimal thickening of the nerve roots, which could reflect postsurgical changes. A simple cyst is present within the left kidney. The aorta is normal. 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 There are changes of prior bone grafting within both iliac bones. T12-L1: The disc is normal in configuration. There is moderate bilateral facet arthropathy. There is no neuroforaminal stenosis. There is no spinal canal stenosis. L1-L2: There is a tiny disc bulge. There is mild bilateral facet arthropathy. There is mild bilateral neuroforaminal stenosis. There is no spinal canal stenosis. L2-L3: Decompressed and fused posteriorly. There is moderate bilateral neuroforaminal stenosis. There is no spinal canal stenosis. L3-L4: Decompressed and fused posteriorly. There is no neuroforaminal stenosis. There is no spinal canal stenosis. L4-L5: Decompressed and fused posteriorly. There is no neuroforaminal stenosis. There is no spinal canal stenosis. L5-S1: Decompressed and fused posteriorly. There is no significant neuroforaminal stenosis. There is no spinal canal stenosis. Procedure Note Lashonda Harris MD - 10/30/2020 EXAMINATION: Magnetic resonance imaging (MRI) of the lumber spine without contrast. HISTORY: 75-year-old woman status post revision posterior instrumented fusion in June 2020. TECHNIQUE: Multiplanar multi-weighted MRI of the lumbar spine was performed without intravenous contrast using the standard lumbar spine protocol. COMPARISON: Comparison is made to a prior CT scan dated 10/11/2020. FINDINGS: There are postsurgical changes of revision posterior instrumented fusion of L1-L4 with combined interbody fusion of L2-S1. There are changes of prior laminectomies from L1 to L5. There is diffuse stranding within the subcutaneous tissues of the lower back without evidence of an organized collection. There is mild retrolisthesis of L2 on L3 and grade 1 anterolisthesis of L4 on L5. There is T1 and T2 signal hyperintensity involving all the vertebral body endplates compatible with Modic type II changes. The conus medullaris terminates at the level of L1. The distal spinal cord signal intensity is normal. There is minimal thickening of the nerve roots, which could reflect postsurgical changes. A simple cyst is present within the left kidney. The aorta is normal. 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 There are changes of prior bone grafting within both iliac bones. T12-L1: The disc is normal in configuration. There is moderate bilateral facet arthropathy. There is no neuroforaminal stenosis. There is no spinal canal stenosis. L1-L2: There is a tiny disc bulge. There is mild bilateral facet arthropathy. There is mild bilateral neuroforaminal stenosis. There is no spinal canal stenosis. L2-L3: Decompressed and fused posteriorly. There is moderate bilateral neuroforaminal stenosis. There is no spinal canal stenosis. L3-L4: Decompressed and fused posteriorly. There is no neuroforaminal stenosis. There is no spinal canal stenosis. L4-L5: Decompressed and fused posteriorly. There is no neuroforaminal stenosis. There is no spinal canal stenosis. L5-S1: Decompressed and fused posteriorly. There is no significant neuroforaminal stenosis. There is no spinal canal stenosis. IMPRESSION: Interval revision posterior instrumented fusion of the lumbar spine with improvement of the previously seen spinal canal stenosis from L1 to L3. There is no significant residual spinal canal stenosis. Dictated by: Atiya Lucia M.D. The radiology attending physician has personally reviewed this study, and had reviewed and/or edited this written report and agrees with it. Electronically signed by: Lashonda Harris M.D. Jeremy Michelle MD IMG MRI PROCEDURES F inal Result documented in this encounter Visit Diagnoses Diagnosis Post-operative pain Other acute postoperative pain documented in this encounter Care Teams Filter Tank Operator Relationship Specialty Start Date End Date Enmanuel Gan MD [address] [place] [address] PCP - General Internal Medicine 04/26/20 Tg Houston MD [address] [facility] [address] [place] [address] Consulting Physician Cardiology 07/18/20 documented as of this encounter
--- OUTSIDE RECORDS SUMMARY | 2024-07-12 08:52 | XMS_ITS | Encounter Summary ---
Author Organization [facility] Healthcare Address [address] [place] [address] Care Team Providers Care Surface Boss Name Role Phone Enmanuel Gan MD Primary Care Provider [phone] Tg Houston MD Unavailable [phone] Reason for Referral * Diagnostic Imaging (Routine) - Closed Specialty Diagnoses / Procedures Referred By Gigi orosco Referred To Contact Diagnoses Follow-up examination following surgery Procedures XR Scoliosis AP LAT Jeremy Michelle MD [address] [place] [address] Phone: tel: fax: [address] [address] Referral ID Status Reason Start Date Expiration Date Visits Re quested Visits Authorized [id number] Closed 10/01/2020 10/31/[address] Reason for Visit * Diagnostic Imaging (Routine) - Closed Specialty Diagnoses / Procedures Referred By Contac t Referred To Contact Diagnoses Follow-up examination following surgery Procedures XR Scoliosis AP LAT Jeremy Michelle MD [address] [place] [address] Phone: tel: fax: [address] [place] [address] Referral ID Status Reason Start Date Expiration Date Visits Re quested Visits Authorized [id number] Closed 10/01/2020 10/31/2021 1 1 Encounter Details Date Type Department Care Team (Latest Contact Info) Description 10/02/2020 9:45 AM RECORD PRODUCER - 10/02/2020 11:59 PM RECORD PRODUCER Hospital Encounter [facility] [address] [place] [address] Jeremy Michelle MD [address] [facility] [place] [address] Follow-up examination following surgery Discharge Disposition: Discharge [...] on file Legal Sex Female 9:09 PM 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 PRODUCER Gender Identity Not on file Sexual Orientation [...] 0 06/21/2013 1 baclofen (LIORESAL) 10 mg tablet TAKE 1 TABLET BY MOUTH EVERY EIGHT HOURS 90 tablet 09/20/2020 1 calcium acetate,phosphat bind, (PHOSLO) 667 mg [...] LAT Schedule Routine, Read Routine (OP Routine) 10/02/2020 9:55 AM RECORD PRODUCER Follow-up examination following surgery documented in this encounter Results * XR Scoliosis AP LAT (10/02/2020 9:55 AM RECORD PRODUCER) Anatomical Region Laterality Modality Spine N/A Computed Radiogr aphy 10/02/2020 10:3 3 AM RECORD PRODUCER Impressions 10/02/2020 11:10 PM RECORD PRODUCER 1. ??Unchanged posterior decompression and revised posterior [...] Panchito Baptiste M.D. Narrative 10/02/2020 11:10 PM RECORD PRODUCER EXAMINATION: 1. Scoliosis series AP and lateral. [...] surgery documented in this encounter Care Teams Surface Boss Relationship Specialty Start Date End Date Enmanuel Gan MD [address] [facility] [address] INTERNAL MEDICINE [place], [place] [id number] PCP - General Internal Medicine 04/26/20 Tg [place] MD [address] [facility] [address] [place] [address] Consulting Physician Cardiology 07/18/20 documented as of this encounter
--- OUTSIDE RECORDS SUMMARY | 2024-07-12 08:52 | XMS_ITS | Encounter Summary ---
Author Organization [facility] Healthcare Address [address] [place] [address] Care Team Providers Care Manager Book Name Role Phone Enmanuel Gan MD Primary Care Provider [phone] Tg Houston MD Unavailable [phone] Reason for Referral * Diagnostic Imaging (Routine) - Closed Specialty Diagnoses / Procedures Referred By Contac t Referred To Contact Radiology Diagnoses Follow-up examination following surgery Procedures CT Thoracic and Lumbar Spine WO Contrast Jeremy Michelle MD [address] [place] [address] Phone: tel: fax: [address] [address] Referral ID Status Reason Start Date Expiration Date Visits Re quested Visits Authorized [id number] Closed 10/02/2020 11/01/2021 1 1 Reason for Visit * Diagnostic Imaging (Routine) - Closed Specialty Diagnoses / Procedures Referred By Contac t Referred To Contact Radiology Diagnoses Follow-up examination following surgery Procedures CT Thoracic and Lumbar Spine WO Contrast Jeremy Michelle MD [address] [place] [address] Phone: tel: fax: [place] [address] [facility] [place] [address] Referral ID Status Reason Start Date Expiration Date Visits Re quested Visits Authorized [id number] Closed 10/02/2020 11/01/2021 1 1 Encounter Details Date Type Department Care Team (Latest Contact Info) Description 10/11/2020 3:57 PM CDT - 10/11/2020 11:59 PM CDT Hospital Encounter [facility] [address] [place] [address] Jeremy Michelle MD [address] [facility] 6A/6B/12A [place] [address] Follow-up examination following surgery Discharge Disposition: Discharge [...] the money to buy more. 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 Jeremy Michelle MD IMG CT PROCEDURES Fi nal Result documented in this encounter Visit Diagnoses Diagnosis Follow-up examination following surgery documented in this encounter Care Teams Manager Book Relationship Specialty Start Date End Date Enmanuel Gan MD [address] [facility] [address] [place] [address] PCP - General Internal Medicine 04/26/20 Tg [place] MD [address] [facility] [address] [place] [address] Consulting Physician Cardiology 07/18/20 documented as of this encounter
--- OUTSIDE RECORDS SUMMARY | 2024-07-12 08:52 | XMS_ITS | Encounter Summary ---
Author Organization [facility] Address [address] [place] [address] Phone Care Team Providers Care Telegraphic Typewriter Operator Name Role Phone Enmanuel Gan MD Primary Care Provider [phone] Tg [place] MD Unavailable [phone] Encounter Details Date Type Department Care Team (Late st Contact Info) Description 11/02/2020 Telephone [facility] Orthopaedic Surgery [address] [facility] Advanced Medicine 6th [place] [address] [place] [address] Jeremy Michelle MD [address] [facility] 6A/6B/12A [place], [place] [id number] Social History Tobacco Use Types Packs/Day Years [...] on file 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 Michelle. Unable to reach at this time. LVM with contact info for call back. documented in this encounter Plan of Treatment Not on file documented as of this encounter Visit Diagnoses Not on filedocumented in this encounter Care Teams Telegraphic Typewriter Operator Relationship Specialty Start Date End Date Enmanuel Gan MD [address] [facility] [address] [place] [address] INTER[address] MEDICINE [place] [id number] PCP - General Internal Medicine 04/26/20 Tg [place] MD [address] [facility] [address] [place] [address] Consulting Physician Cardiology 07/18/20 documented as of this encounter
--- OUTSIDE RECORDS SUMMARY | 2024-07-12 08:52 | XMS_ITS | Encounter Summary ---
Author Organization [facility] Address [address] [place] [address] Phone Care Team Providers Care Label Remover Name Role Phone Enmanuel Gan MD Primary Care Provider [phone] Tg [place] MD Unavailable [phone] Encounter Details Date Type Department Care Team (Late st Contact Info) Description 11/01/2020 Documentation [facility] Orthopaedic Surgery [address] [facility] Advanced Medicine 12th [place] [address] [place] [address] Jeremy Michelle MD [address] [facility] 6A/6B/[address] [place] [address] Social History Tobacco Use Types Packs/Day Years [...] any clubs o r organizations such as scientologist groups, unions, fraternal or athletic groups, or [...] file 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 Didwell immediately post op and then developed recurrence of L2/3 type radicular pain. New CT, MRI, and EMG have been reviewed and are unrevealing. Hardware in good position, no new or increased foraminal stenosis, and EMG only shows old radic findings. Will offer patient dose ashley and PT at this point. May try injection in near future as well. I do not have a clear surgical issue to address at this time. Jeremy Michelle MD PhD Attending Spine Surgeon Chicken Buyer of Orthopaedic and Neurological Surgery [facility] Orthopaedics [facility] documented in this encounter Plan of Treatment Not on file documented as of this encounter Visit Diagnoses Not on filedocumented in this encounter Care Teams Label Remover Relationship Specialty Start Date End Date Enmanuel Gan MD [address] [facility] [address] INTER[address] MEDICINE [place] [id number] PCP - General Internal Medicine 04/26/20 Tg [place] MD [address] [facility] [address] [place] [address] Consulting Physician Cardiology 07/18/20 documented as of this encounter
--- OUTSIDE RECORDS SUMMARY | 2024-07-12 08:52 | XMS_ITS | Encounter Summary ---
Author Organization [facility] Address [address] [place] [address] Phone Care Team Providers Care Stock Checker Name Role Phone Enmanuel Gan MD Primary Care Provider [phone] Tg [place] MD Unavailable [phone] Reason for Referral * Diagnostic Imaging (Routine) - Closed Specialty Diagnoses / Procedures Referred By Contac t Referred To Contact Radiology Diagnoses Post-operative pain Procedures MRI Lumbar Spine WO Contrast Jeremy Michelle MD [address] [facility] [place] [address] Phone: tel: fax: [facility] [address] [place] [address] Referral ID Status Reason Start Date Expiration Date Visits Re quested Visits Authorized [id number] Closed 10/17/2020 11/16/2021 1 1 Encounter Details Date Type Department Care Team (Late st Contact Info) Description 10/17/2020 Orders Only [facility] Orthopaedic Surgery [address] [facility] 6th [place] [address] [place] [address] Jeremy Michelle MD [address] [facility] [address] Post-operative pain (Primary Dx) Social History Tobacco [...] often do you attend chur ch or advent services? 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
--- OUTSIDE RECORDS SUMMARY | 2024-07-12 08:52 | XMS_ITS | Encounter Summary ---
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) Procedures EMG/NCV -Please select the performing region: [facility] (All Locations); Procedure performed at: [facility] Jeremy Michelle MD [address] [facility] [address] Phone: tel: fax: [facility] (All Locations) Referral ID Status Reason Start Date Expiration Date Visits Re quested Visits Authorized [id number] Closed 10/17/2020 11/16/2021 1 1 Encounter Details Date Type Department Care Team (Late st Contact Info) Description 10/30/2020 9:00 AM CDT Diagnostic [facility] Orthopaedic Surgery [address] [facility] 6th [place] [address] [place] [address] Brian Puente MD [address] [facility] [address] Lumbosacral radiculopathy (Primary Dx); Post-operative pain; 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 The report can be accessed in the chart by going to the Procedures section. 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 (CMS/HCC) documented in this encounter Results * EMG/NCV -Please select the performing region: [facility] (All Locations); Procedure performed at: [facility] Physiatry (10/30/2020 8:57 AM CDT) Anatomical Region Laterality Modality Other us Jeremy Michelle MD NEUROLOGY ORDERABLES Edited Result - Final documented in this encounter Visit Diagnoses Diagnosis Lumbosacral radiculopathy- Primary Thoracic or lumbosacral neuritis or radiculitis, unspecified Post-operative pain Other acute postoperative pain 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
--- OUTSIDE RECORDS SUMMARY | 2024-07-12 08:52 | XMS_ITS | Encounter Summary ---
Author Organization [facility] Address [address] [place] [address] Phone Care Team Providers Care Engineering Writer Name Role Phone Enmanuel Gan MD Primary Care Provider [phone] Tg Houston MD Unavailable [phone] Encounter Details Date Type Department Care Team (Late st Contact Info) Description 11/02/2020 Telephone [facility] Orthopaedic Surgery [address] [facility] Advanced Medicine 6th [place] [address] [place] [address] Jeremy Michelle MD [address] [facility] [address]6B[address]12A [place], [place] [id number] Social History Tobacco Use Types Packs/Day Years [...] How often do you attend chur or samaritan services? 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 Michelle. Place PT referral to [facility] with contact info for questions. Pt veerbalized understanding. documented in this encounter Plan of Treatment Not on file documented as of this encounter Visit Diagnoses Diagnosis Post-operative pain- Primary Other acute postoperative pain documented in this encounter Care Teams Engineering Writer Relationship Specialty Start Date End Date Enmanuel Gan MD [address] [place] [address] PCP - General Internal Medicine 04/26/20 Tg Houston MD [address] [facility] [address] [place] [address] Consulting Physician Cardiology 07/18/20 documented as of this encounter
--- OUTSIDE RECORDS SUMMARY | 2024-07-12 08:53 | XMS_ITS | Encounter Summary ---
Author Organization [facility] Address [address] [place] [address] Phone Care Team Providers Care Sheet Rock Finisher Name Role Phone Enmanuel Gan MD Primary Care Provider [phone] Tg Houston MD Unavailable [phone] Reason for Visit * Audiology (Routine) - Closed Specialty Diagnoses / Procedures Referred By Contac t Referred To Contact Audiology Diagnoses Sensorineural hearing loss, bilateral Procedures Evaluation, cochlear implant programming and auditory rehabilitation per [facility] adult cochlear implant protocol Darshana Toth MD [address] [facility] [address] [place] [address] Phone: tel: fax: [facility] Otolaryngology [address] [place] [address] [address]th [place] [address] [place] [address] Phone: tel: fax: Referral ID Status Reason Start Date Expiration Date Visits Re quested Visits Authorized [id number] Closed 04/30/2020 05/30/2021 12 12 Encounter Details Date Type Department Care Team (Latest Contact Info) Description 09/07/2020 3:00 PM POULTRY PACKER Procedure visit [facility] Otolaryngology [address] [place] [address] [address]th [place] [address] [place] [address] Jasmin Winter, PhD [address] [place] [address] Sensorineural hearing loss, bilateral Social History Tobacco [...] attend chur ch or tenriism services? Never 07/30/2020 Do you [...] on file Legal Sex Female 9:09 PM POULTRY PACKER Gender Identity Not on file Sexual Orientation Lesbian 05/24/2019 9: 06 AM CDT documented as of this encounter Procedure Notes * Jasmin Winter, PhD - 09/07/2020 3:00 PM CST Procedures Cochlear Implant (Active) L/R/Bilateral left Route Inspector [employer] Internal [id number] External Kanso 2/dunlap/4(i) Provider Navneet Date of CI surgery 06/19/20 Date of IS 07/09/20 MAPS in Processor: SCAN+all IP V6, S12 P1: map??7 P2: map 8 (Cs+3) ? COUCH(RE): Widex YURI, outside provider ?? SERVICES PROVIDED: Subsequent Programming ?? PROCEDURES: The patient attended the session??with her ,??Sunita. ?? The patient reported: -doing well since her back surgery -hearing well overall but does think she needs more volume. Has to ensure phone and TV volume are turned up all the way when listening. -processor staying on well, no irritation at magnet site ?? Programming: Programming was completed to optimize current map parameters and to ensure optimal settings. ??See custom sound??software for details this date. ?? A head check was completed and magnet site was red with indentation. 4i magnet is tight. Weakened magnet to 3i and this coupled better. Impedances were measured and were??all okay and stable. Datalogging revealed all-day use, mostly wore p1 but was on p2 today. ?? Patient's preferred map was opened: map 6. C levels were swept and balanced; rated soft. Significant changes were made from E16 to 13 in balancing. 25% T levels were swept and rated first hearing to inaudible. 50% Ts balanced; significant changes made from E16 to 13. Re-swept at 25%, small increases on E15 and 3 to ensure all electrodes audible but very soft. When live, patient reported speech was medium soft. Cs+3 and voices were rated medium and comfortable. Sound quality was clear. Together with COUCH, hearing aid side was a little bit louder than implantside. Cs+2 and Ts+1, patient reported volume was much better and balanced. Voices rated medium. This was saved as map 7. ?? The final programs were loaded as indicated above.?? Backup sound processor was dispensed, fit with magnet 3i, programmed identically. Paired backup processor to her mini sherita that Edelmira dispensed today. Dispensed patient's backpack and spare parts. Her TV Streamer and Phone Clip were retained in the clinic for future dispensing. Will need to review changing sherita covers again at or by 3-month visit. ?? The note as documented above reflects my personal service IMPRESSIONS/PLAN: Return for continued programming - 1200 rate Monitor [place] site TRY PACKER documented in this encounter Plan of Treatment Not on file documented as of this encounter Visit Diagnoses Diagnosis Sensorineural hearing loss, bilateral documented in this encounter Orders Audiology Count Last Ordered Date First Orde red Date EVALUATION, COCHLEAR IMPLANT PROGRAMMING AND AUDITORY REHABILITATION 1 08/31/2020 documented in this encounter Care Teams Sheet Rock Finisher Relationship Specialty Start Date End Date Enmanuel Gan MD [address] [facility] [address] [place] [address] PCP - General Internal Medicine 04/26/20 Tg Houston MD [address] [facility] [address] [place] [address] Consulting Physician Cardiology 07/18/20 documented as of this encounter
--- OUTSIDE RECORDS SUMMARY | 2024-07-12 08:53 | XMS_ITS | Encounter Summary ---
Author Organization [facility] Address [address] [place] [address] Phone Care Team Providers Care Hadoop Software Engineer Name Role Phone Enmanuel Gan MD Primary Care Provider [phone] Tg Houston MD Unavailable [phone] Reason for Visit * Audiology (Routine) - Closed Specialty Diagnoses / Procedures Referred By Contac t Referred To Contact Audiology Diagnoses Sensorineural hearing loss, bilateral Procedures Evaluation, cochlear implant programming and auditory rehabilitation per [facility] adult cochlear implant protocol Darshana Toth MD [address] [facility] [address] [place] [address] Phone: tel: fax: [facility] Otolaryngology [address] [place] [address] 11th [place] [address] Phone: tel: fax: Referral ID Status Reason Start Date Expiration Date Visits Re quested Visits Authorized [id number] Closed 04/30/2020 05/30/2021 12 12 Encounter Details Date Type Department Care Team (Latest Contact Info) Description 09/18/2020 2:30 PM BUSINESS BANKING SALES ASSISTANT Procedure visit [facility] Otolaryngology [address] [place] [address] 11th [place] [address] [place] [address] Zee Garcia Au.D. 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 - 09/18/2020 2:30 PM CST Procedures Diagnosis: Sensorineural hearing loss, bilateral Physician: Dr. Toth SERVICES PROVIDED: Auditory Rehabilitation - Postlingual hearing loss ?? Procedures: The patient was seen for continued audiologic rehabilitation services focusing on cochlear implant and/or hearing aid adjustment as well as devices and strategies to help manage conversations. The patient attended the appointment alone, Sunita joined for the last 10 minutes. ?? Patient reported: -Beginning to picking belt operator more sounds. -Hear different tones - still robotic Audiobooks - Malagasy Romero (David Saucedo) - can detect a little of his speech (even with hearing aid sounds different) Unabridged versions?? EVALUATION: Patient goals: Written prior to CI surgery. 1. Understanding conversation in a small group (about 4 people, in quiet) 2. Less repetition when listening, not having to ask someone to repeat what they said 3. Reduce sudden loud noises - sounds I'm not expecting 4. Be able to focus on a specific speaker in a theatre setting (live theatre) -previously used telecoil with ear loop 5. Be able to focus on a specific speaker at a seminar -movies 6. Watch TV without turning on the high volume Auditory Training Testing: Cochlear Rehabilitation Manual - Screening Test Results: Level A - Assess the ability to detect and discriminate duration and amplitude cues 100% Level B - Assess the ability to detect and discriminate duration and amplitude cues 90% Level C - Second formant discrimination 100% Level D - Open set recognition 86% words correct score 80% sentences correct score Practice Activities to complete helper Homework instructions provided - explained how to administer exercises and demonstrated ??? Exercises sent home for practice today - appropriate level: D Exercises - Session 5, doing well. Still working on these and forgot to bring them in. ?? Self-Practice Activities - Rehabilitation Resources Self-Practice for Auditory Training Audiobooks - Malagasy Romero (David Saucedo) - can detect a little of his speech (even with hearing aid sounds different) Unabridged versions? Computer programs: Follow up next appointment AURAL REHABILITATION: Situation Management/Communication Strategies/Analysis: No new challenging listening situations Sometimes a few repetitions -Sometimes it seems to run together. -Sometimes miss the subject -Slower Equipment/HAT:?? Mini sherita dispensed and trained at last appointment - Did not have time to practice today. Phone Clip - Did not have time to practice today ?? Telephone: Telephone packet provided with explanation of exercises. Patient to read over and try exercises, CI side? IMPRESSIONS/PLAN: Continue Home program: AT Exercises level D Session 5 sentences in noise [employer] with special focus on basic modules: consonant and vowel recognition Mini sherita: connect to computer for [employer] auditory training and begin using in noise and for distance Music: listen to favorite albums on repeat and practice with [employer] Telephone packet NESS BANKING SALES ASSISTANT documented in this encounter Plan of Treatment Not on file documented as of this encounter Visit Diagnoses Diagnosis Sensorineural hearing loss, bilateral documented in this encounter Orders Audiology Count Last Ordered Date First Orde red Date EVALUATION, COCHLEAR IMPLANT PROGRAMMING AND AUDITORY REHABILITATION 1 09/14/2020 documented in this encounter Care Teams Hadoop Software Engineer Relationship Specialty Start Date End Date Enmanuel Gan MD [address] [place] [address] PCP - General Internal Medicine 04/26/20 Tg Houston MD [address] [facility] [address] [place] [address] Consulting Physician Cardiology 07/18/20 documented as of this encounter
--- OUTSIDE RECORDS SUMMARY | 2024-07-12 08:53 | XMS_ITS | Encounter Summary ---
Author Organization [facility] Address [address] [facility] [address] [place] [address] Care Team Providers Care Provider Relations Specialist Name Role Phone Enmanuel Gan MD Primary Care Provider [phone] Tg Houston MD Unavailable [phone] Karlie Hernandez RN Unavailable [phone] Reason for Referral * (Routine) - Closed Specialty Diagnoses / Procedures Referred By Contac t Referred To Contact Procedures ECG 12 lead [facility] Cardiology [address] [place] [address] Phone: tel: fax: Referral ID Status Reason Start Date Expiration Date Visits Re quested Visits Authorized [id number] Closed 08/23/2020 09/22/2021 1 1 OR PROCUREMENT MANAGER Encounter Details Date Type Department Care Team (Late st Contact Info) Description 08/23/2020 Orders Only [facility] Medical [facility] Cardiology [address] [place] [address] [address], [place] [address] Emmanuel Briones MD [facility] [place] [address] Social History Tobacco Use Types Packs/Day [...] file Legal Sex Female 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 Gender Identity Not on file Sexual Orientation Lesbian 05/24/2019 9: 06 AM CDT documented as of this encounter Plan of Treatment Not on file documented as of this encounter Procedures Procedure Name Priority Date/Time Associated Diagnosis Comments ECG 12-LEAD Routine 07/05/2020 documented in this encounter Results * ECG 12 lead (07/05/2020) us Historical Provider ECG ORDERABLES Final Res ult documented in this encounter Visit Diagnoses Not on filedocumented in this encounter Care Teams Provider Relations Specialist Relationship Specialty Start Date End Date Enmanuel Gan MD [address] [place] [address] PCP - General Internal Medicine 04/26/20 Tg Houston MD [address] [place] [address] Consulting Physician Cardiology 07/18/20 Karlie Hernandez, RN [address] [facility] [address] [place], [place] [id number] SHOP Outpatient Microsoft Windows Engineer 07/30/20 08/27/20 documented as of this encounter
--- OUTSIDE RECORDS SUMMARY | 2024-07-12 08:53 | XMS_ITS | Encounter Summary ---
Author Organization [facility] Address [address] [place] [address] Care Team Providers Care Cutter Woodwind Reeds Name Role Phone Enmanuel Gan MD Primary Care Provider [phone] Tg Houston MD Unavailable [phone] Karlie Hernandez RN Unavailable Reason for Visit * Reason Comments Unsuccessful Phone Call 1 M for patien t requesting call back. OCM to follow up again next week. Encounter Details Date Type Department Care Team (Late st Contact Info) Description 08/21/2020 SHOP/CHAP Subsequent Outreach [facility] OP CASE MANAGEMENT [address] [place] [address] Karlie Hernandez, RN [address] [facility] [address] [place] [address] Social History Tobacco Use Types [...] file Legal Sex Female 9:09 PM RADIO RIGGER Gender Identity Not on file Sexual Orientation Lesbian 05/24/2019 9: 06 AM CDT documented as of this encounter Plan of Treatment Not on file documented as of this encounter Visit Diagnoses Not on filedocumented in this encounter Care Teams Cutter Woodwind Reeds Relationship Specialty Start Date End Date Enmanuel Gan MD [address] [place] [address] PCP - General Internal Medicine 04/26/20 Tg Houston MD [address] [place] [address] Consulting Physician Cardiology 07/18/20 Karlie Hernandez, RN [address] [place] [id number] SHOP Outpatient Thread Separator 07/30/20 08/27/20 documented as of this encounter
--- OUTSIDE RECORDS SUMMARY | 2024-07-12 08:53 | XMS_ITS | Encounter Summary ---
Author Organization [facility] Address [address] [place] [address] Phone Care Team Providers Care Chair Spring Assembler Name Role Phone Enmanuel Gan MD Primary Care Provider [phone] Tg Houston MD Unavailable [phone] Reason for Visit * Audiology (Routine) - Closed Specialty Diagnoses / Procedures Referred By Contac t Referred To Contact Audiology Diagnoses Sensorineural hearing loss, bilateral Procedures Evaluation, cochlear implant programming and auditory rehabilitation per [facility] adult cochlear implant protocol Darshana Toth MD [address] [facility] [address] [place] [address] Phone: tel: fax: [facility] Otolaryngology [address] [place] [address] 11th [place] [address] Phone: tel: fax: Referral ID Status Reason Start Date Expiration Date Visits Re quested Visits Authorized [id number] Closed 04/30/2020 05/30/2021 12 12 Encounter Details Date Type Department Care Team (Latest Contact Info) Description 09/18/2020 4:00 PM EXECUTIVE ADVISOR Procedure visit [facility] Otolaryngology [address] [place] [address] 11th [place] [address] Norma Oliveira Au.D. [address] [place] [address] Sensorineural hearing loss, bilateral (Primary Dx) Social [...] on file Legal Sex Female 9:09 PM EXECUTIVE ADVISOR Gender Identity Not on file Sexual Orientation Lesbian 05/24/2019 9: 06 AM CDT documented as of this encounter Procedure Notes * Norma Oliveira Au.D. 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 COUCH(RE): Widex YURI, outside provider Accessories: Mini sherita paired to both processors ?? SERVICES PROVIDED:??Subsequent??Programming ?? PROCEDURES: The patient attended the session??alone with her ,??Sunita, in the waiting room. ?? The patient reported: -wearing P1, Map 7 on volume 7 -detecting sound well, understanding improving at slower rate -still recovering from back surgery, was told recovery from this surgery will be longer. This is her 4th back surgery. -not set up to stream from phone yet -does not think she has any residual hearing in CI ear ?? Programming: Programming was??completed to create a new map for comparison to her current map.?See custom sound??software for details this date. ?? A head check was completed and magnet site was red with indentation. ?? Impedances were measured and were??all okay and stable. A new map was created: ALLEGRA 1200, 25 PW, 8 tasha ALJs collected on every other electrode. Counted Ts collected on measured electrodes. Cs were set at medium and Ts set at counted. Cs and Ts interpolated. C levels were swept and balanced, rated as medium 25% T levels were swept and balanced, rated as soft. Before going live Ts and Cs were decreased globally by 5. When live, the patient reported more Jj Mouse sound with CI alone. With COUCH in, she thought the sound was more clear and clearer than her previous 900 map. This was saved as map 9. ?? The final programs were loaded as indicated above.??Battery estimate: 23 hours Backup processor not updated as she did not bring it. Counseled to bring it next week. Provided handout for Jj Patino's services if needed in the future. ?? The note as documented above reflects my personal service ? IMPRESSIONS/PLAN: Compare P1, 900 and P2, 1200 Postoperative audiogram and one-month evaluation next week UTIVE ADVISOR documented in this encounter Plan of Treatment Not on file documented as of this encounter Visit Diagnoses Diagnosis Sensorineural hearing loss, bilateral- Primary documented in this encounter Orders Audiology Count Last Ordered Date First Orde red Date EVALUATION, COCHLEAR IMPLANT PROGRAMMING AND AUDITORY REHABILITATION 1 09/14/2020 documented in this encounter Care Teams Chair Spring Assembler Relationship Specialty Start Date End Date Enmanuel Gan MD [address] [place] [address] PCP - General Internal Medicine 04/26/20 Tg Houston MD [address] [facility] [address] [place] [address] Consulting Physician Cardiology 07/18/20 documented as of this encounter
--- OUTSIDE RECORDS SUMMARY | 2024-07-12 08:53 | XMS_ITS | Encounter Summary ---
Author Organization [facility] Healthcare Address [address] [place] [address] Care Team Providers Care Bread Supervisor Name Role Phone Enmanuel Gan MD Primary Care Provider [phone] Tg Houston MD Unavailable [phone] Reason for Referral * Diagnostic Imaging (Routine) - Closed Specialty Diagnoses / Procedures Referred By Contac t Referred To Contact Diagnoses Follow-up examination following surgery Procedures XR Spine Lumbar 2 Or 3 View Jeremy Michelle MD [address] [place] [address] Phone: tel: fax: [address] [address] Referral ID Status Reason Start Date Expiration Date Visits Re quested Visits Authorized [id number] Closed 09/03/2020 10/03/2021 1 1 OTICS INVESTIGATOR Reason for Visit * Diagnostic Imaging (Routine) - Closed Specialty Diagnoses / Procedures Referred By Contac t Referred To Contact Diagnoses Follow-up examination following surgery Procedures XR Spine Lumbar 2 Or 3 View Jeremy Michelle MD [address] 6[address]6B/12A [place] [address] Phone: tel: fax: [facility] [address] [place] [address] Referral ID Status Reason Start Date Expiration Date Visits Re quested Visits Authorized [id number] Closed 09/03/2020 10/03/2021 1 1 Encounter Details Date Type Department Care Team (Latest Contact Info) Description 09/04/2020 2:35 PM NARCOTICS INVESTIGATOR - 09/04/2020 11:59 PM NARCOTICS INVESTIGATOR Hospital Encounter [facility] [address] [place] [address] Jeremy Michelle MD [address] [facility] 6A/6B/12A [place] [address] Follow-up examination following surgery Discharge Disposition: Discharge [...] on file Legal Sex Female 9:09 PM NARCOTICS INVESTIGATOR Gender Identity Not on file Sexual Orientation Lesbian 05/24/2019 9: 06 AM CDT documented as of this encounter Medications at Time of Discharge atorvastatin (LIPITOR) 20 mg tabletIndication s:hyperlipidemia Take 1 tablet (20 mg total) by mouth nightly 07/29/2018 oxyCODONE (ROXICODONE) 5 mg immediate release tabletIndication s:Pain Take 1 tablet (5 mg total) by mouth every 6 (six) hours as needed (pain) for up to 7 days 28 tablet 09/04/2020 1 ALPRAZolam (XANAX) 0.25 mg tabletIndication s:ears Take [...] 06/21/2013 1 baclofen (LIORESAL) 10 mg tabletIndication s:Muscle spasm Take 1 tablet (10 mg total) by mouth every 8 (eight) hours 90 tablet 08/28/2020 1 calcium acetate,phosphat bind, (PHOSLO) 667 mg [...] for 14 days 56 tablet 07/29/2020 4 triamterene-hydr oCHLOROthiazide 37.5-25 mg per capsule TAKE ONE CAPSULE BY MOUTH ONCE DAILY 90 capsule 3 11/17/2019 3 documented as of this encounter Discharge Disposition Disposition Code Departure Means Destination Discharge to home or self care documented in this encounter Plan of Treatment Not on file documented as of this encounter Procedures Procedure Name Priority Date/Time Associated Diagnosis Comments XR SPINE LUMBAR 2 OR 3 VIEWS Schedule Routine, Read Routine (OP Routine) 09/04/2020 2:44 PM NARCOTICS INVESTIGATOR Follow-up examination following surgery documented in this encounter Results * XR Spine Lumbar 2 Or 3 View (09/04/2020 2:44 PM NARCOTICS INVESTIGATOR) Anatomical Region Laterality Modality Spine N/A Computed Radiogr aphy 09/04/2020 3:18 PM NARCOTICS INVESTIGATOR Impressions 09/04/2020 3:55 PM NARCOTICS INVESTIGATOR 1. ??Unchanged instrumented posterior spinal fusion and decompression from L1 - L4, non-instrumented posterior spinal fusion and posterior decompression from L4 - S1 and combined discectomy with interbody fusion from L2 - S1. Dictated by: Yocasta Rooney M.D. The radiology attending physician has personally reviewed this study, and had reviewed and/or edited this written report and agrees with it. Electronically signed by: Hosea Garg M.D. Narrative 09/04/2020 3:55 PM NARCOTICS INVESTIGATOR EXAMINATION: XR SPINE LUMBAR 2 OR 3 VIEWS HISTORY: ?Follow-up status post posterior spinal fusion FINDINGS: 2 radiographs of the lumbar spine are provided for interpretation. Comparison is made to prior radiographs dated 07/28/2020. There is unchanged instrumented posterior spinal fusion from L1 to L4 with posterior decompression. There is unchanged noninstrumented posterior spinal fusion and posterior decompression from L4 to S1. Unchanged discectomy with interbody fusion from L2 to S1. ??There is persistent mild retrolistheses of L2 on L3. ??There is mild diffuse degenerative disc disease at the nonfused levels. ??No acute fractures. ??Bilateral total hip arthroplasties are noted. ??Surgical clips in the right upper quadrant. Procedure Note Hosea Garg MD - 09/04/2020 EXAMINATION: XR SPINE LUMBAR 2 OR 3 VIEWS HISTORY: Follow-up status post posterior spinal fusion FINDINGS: 2 radiographs of the lumbar spine are provided for interpretation. Comparison is made to prior radiographs dated 07/28/2020. There is unchanged instrumented posterior spinal fusion from L1 to L4 with posterior decompression. There is unchanged noninstrumented posterior spinal fusion and posterior decompression from L4 to S1. Unchanged discectomy with interbody fusion from L2 to S1. There is persistent mild retrolistheses of L2 on L3. There is mild diffuse degenerative disc disease at the nonfused levels. No acute fractures. Bilateral total hip arthroplasties are noted. Surgical clips in the right upper quadrant. IMPRESSION: 1. Unchanged instrumented posterior spinal fusion and decompression from L1 - L4, non-instrumented posterior spinal fusion and posterior decompression from L4 - S1 and combined discectomy with interbody fusion from L2 - S1. Dictated by: Yocasta Rooney M.D. The radiology attending physician has personally reviewed this study, and had reviewed and/or edited this written report and agrees with it. Electronically signed by: Hosea Garg M.D. Jeremy Michelle MD IMG XR PROCEDURES Fi nal Result documented in this encounter Visit Diagnoses Diagnosis Follow-up examination following surgery documented in this encounter Care Teams Bread Supervisor Relationship Specialty Start Date End Date Enmanuel Gan MD [address] [place] [address] PCP - General Internal Medicine 04/26/20 Tg Houston MD [address] [facility] [address] [place] [address] Consulting Physician Cardiology 07/18/20 documented as of this encounter
--- OUTSIDE RECORDS SUMMARY | 2024-07-12 08:53 | XMS_ITS | Encounter Summary ---
Author Organization [facility] Address [address] [place] [address] Phone Care Team Providers Care Verification Engineer Name Role Phone Enmanuel Gan MD Primary Care Provider [phone] Tg Houston MD Unavailable Reason for Referral * Diagnostic Imaging (Routine) - Closed Specialty Diagnoses / Procedures Referred By Contac t Referred To Contact Diagnoses Follow-up examination following surgery Procedures XR Spine Lumbar 2 Or 3 View Jeremy Michelle MD [address] [place] [address] Phone: tel: fax: [facility] 1 [place] [address] Referral ID Status Reason Start Date Expiration Date Visits Re quested Visits Authorized [id number] Closed 09/03/2020 10/03/2021 1 1 E SETTER Encounter Details Date Type Department Care Team (Late st Contact Info) Description 09/03/2020 Orders Only [facility] Orthopaedic Surgery [address] [facility] 6th [place] [address] [place] [id number] Jeremy Michelle MD [address] [facility] [place] [address] Follow-up examination following surgery (Primary Dx) Social [...] on file Legal Sex Female 9:09 PM GUIDE SETTER Gender Identity Not on file Sexual Orientation Lesbian 05/24/2019 9: 06 AM CDT documented as of this encounter Plan of Treatment Not on file documented as of this encounter Results * XR Spine Lumbar 2 Or 3 View (09/04/2020 2:44 PM GUIDE SETTER) Anatomical Region Laterality Modality Spine N/A Computed Radiogr aphy 09/04/2020 3:18 PM GUIDE SETTER Impressions 09/04/2020 3:55 PM GUIDE SETTER 1. ??Unchanged instrumented posterior spinal fusion and [...] Hosea Garg M.D. Narrative 09/04/2020 3:55 PM GUIDE SETTER EXAMINATION: XR SPINE LUMBAR 2 OR 3 [...] it. Electronically signed by: Hosea Garg M.D. us Jeremy Michelle MD IMG XR PROCEDURES Fi nal Result documented in this encounter Visit Diagnoses Diagnosis Follow-up examination following surgery- Primary Follow-up examination following surgery documented in this encounter Care Teams Verification Engineer Relationship Specialty Start Date End Date Enmanuel Gan MD [address] [place] [address] PCP - General Internal Medicine 04/26/20 Tg Houston MD [address] [facility] [address] [place] [address] Consulting Physician Cardiology 07/18/20 documented as of this encounter
--- OUTSIDE RECORDS SUMMARY | 2024-07-12 08:53 | XMS_ITS | Encounter Summary ---
Author Organization [facility] Healthcare Address [address] [place] [address] Care Team Providers Care Designer Name Role Phone Enmanuel Gan MD Primary Care Provider Tg Houston MD Unavailable [phone] Reason for Visit * Reason Comments Successfully Completed Encounter Details Date Type Department Care Team (Late st Contact Info) Description 08/28/2020 SHOP/CHAP Subsequent Outreach [facility] OP CASE MANAGEMENT [address] [place] [id number] Karlie Hernandez, RN [address] [facility] [address] [place], [place] [id number] Social History Tobacco Use Types Packs/Day Years [...] on file Legal Sex Female 9:09 PM DISTRIBUTING CLERK Gender Identity Not on file Sexual Orientation Lesbian 05/24/2019 9: 06 AM CDT documented as of this encounter Progress Notes * Karlie Hernandez, RN - 08/28/2020 10:25 AM CST Spoke with patient for weekly SHOP follow up. Patient reports she is doing well at this time. She feels the has slowly been progressing and can see the light at the end of the tunnel . She is takingless pain medication, but did receive a refill yesterday. No issues with her surgical incision. Shehas another follow up with spinal surgeon Dr. Michelle on 09/04 and will have transportation. She has no questions or concerns at this time. Patient made aware this will be my last follow up call and she verbalized understanding. Confirmed she is aware of upcoming appointments and has contact information for all providers. 30 day SHOP episode complete, no further OCM outreach needed at this time. Closing SHOP episode. RIBUTING CLERK documented in this encounter Plan of Treatment Not on file documented as of this encounter Visit Diagnoses Not on filedocumented in this encounter Care Teams Designer Relationship Specialty Start Date End Date Enmanuel Gan MD [address] [place] [address] PCP - General Internal Medicine 04/26/20 Tg Houston MD [address] [facility] [address] [place] [address] Consulting Physician Cardiology 07/18/20 documented as of this encounter
--- OUTSIDE RECORDS SUMMARY | 2024-07-12 08:53 | XMS_ITS | Encounter Summary ---
Author Organization [facility] Address [address] [place] [address] Phone Care Team Providers Care Ornament Maker Hand Name Role Phone Enmanuel Gan MD Primary Care Provider [phone] Tg Houston MD Unavailable [phone] Encounter Details Date Type Department Care Team (Late st Contact Info) Description 09/04/2020 2:00 PM ORACLE DBA Office Visit [facility] Orthopaedic Surgery [address] [place] [address] Medicine 12th [place] [address] [place] [phone] Jeremy Michelle MD [address] [facility] [address] [place] [address] Follow-up examination following surgery (Primary Dx) Social [...] 07/30/2020 How often do you attend [facility] or confucianism services? Never 07/30/2020 Do [...] on file Legal Sex Female 9:09 PM ORACLE DBA Gender Identity Not on file Sexual Orientation Lesbian 05/24/2019 9: 06 AM CDT documented as of this encounter Patient Instructions * Patient Instructions* Cyndie Byers RN - 09/04/2020 2:00 PM ORACLE DBA Thank you for your visit today we are pleased to be here to assist with your spine needs. Go to the 6th floor [address], ask for DME/ Kale or who is available and you need fit for corset type brace to help as a reminder not to bend, lift, twist Sincerely, Dr. Jeremy Michelle & Cyndie Byers RN Please contact Dr. Miguel Angel Agee's Nurse if you have any questions. LE DBA LE DBA documented in this encounter Progress Notes * Jeremy Michelle MD - 09/04/2020 2:00 PM CST This is a pleasant 75-year-old female who is well known to me. She is doing great now 6 weeks out from revision posterior lumbar decompression fusion. She is walking great and getting around well. She does tell me that she finds herself doing too much. She wouldlike to get a corset type brace to help remind her not to bend lift twist - I think this is a greatidea. On exam she remains intact bilaterally C5 through T1 and L2 through S1. Her incision has healed. Imaging was reviewed by me today. No change in position or alignment. Hardware intact and with no sign of complication Assessment and plan Doing well 6 weeks out from lumbar decompression and fusion revision. She is doing great now. We talked about activity modification and not doing too much as well as the corset brace. We also talked about her pain medicine. We talked about options of medication going forward. She isdown to 3 oxycodone a day. We are going to refill this today and she is going to go to 2 oxycodone and hopefully just 1 at night before weaning off. We will see her at her regular 3 month follow-up with repeat films. Jeremy Michelle MD PhD Attending Spine Surgeon Entry Examiner of Orthopaedic and Neurological Surgery [facility] Orthopaedics [facility] LE DBA documented in this encounter Plan of Treatment Not on file documented as of this encounter Visit Diagnoses Diagnosis Follow-up examination following surgery- Primary documented in this encounter Historical Medications * This list may reflect changes made after this encounter. Eliquis 5 mg tablet Take 5 mg by mouth every 12 (twelve) hours 08/28/2020 03/29/2021 added in this encounter Care Teams Ornament Maker Hand Relationship Specialty Start Date End Date Enmanuel Gan MD [address] [place] [address] PCP - General Internal Medicine 04/26/20 Tg Houston MD [address] [place] [address] Consulting Physician Cardiology 07/18/20 documented as of this encounter
--- OUTSIDE RECORDS SUMMARY | 2024-07-12 08:53 | XMS_ITS | Encounter Summary ---
Author Organization [facility] Address [address] [place] [address] Phone Care Team Providers Care Geriatric Psychiatrist Name Role Phone Enmanuel Gan MD Primary Care Provider [phone] Tg Houston MD Unavailable [phone] Encounter Details Date Type Department Care Team (Late st Contact Info) Description 09/07/2020 11:00 AM MEDICAL BILLING REPRESENTATIVE Procedure visit [facility] Otolaryngology [address] [facility] Medicine 11th [place] [address] [place] [phone] Newton Pierson, SUPERVISOR MOTORCYCLE REPAIR SHOP [address] [facility] [address] [place] [address] Sensorineural hearing loss, bilateral Social History Tobacco [...] week 07/30/2020 How often do you attend [facility] or orthodox services? Never 07/30/2020 Do you [...] file Legal Sex Female 9:09 PM MEDICAL BILLING REPRESENTATIVE Gender Identity Not on file Sexual Orientation Lesbian 05/24/2019 9: 06 AM CDT documented as of this encounter Procedure Notes * Newton Pierson, SUPERVISOR MOTORCYCLE REPAIR SHOP - 09/07/2020 11:00 AM CST Procedures 1945 75 y.o. female 09/07/2020 Services Provided: Auditory Rehabilitation - Postlingual hearing loss Procedures: The patient was seen for continued audiologic rehabilitation services focusing on cochlear implant and/or hearing aid adjustment as well as devices and strategies to help manage conversations. Patient Reports: Macie reported that she is hearing well, but that it is quiet. She is hearing better in quiet conversation, but still having difficult in noise, on the phone, in groups, etc. She has completed home practice: listened to Sunita reading and now listening to an audiobook (Spy novel) and is able to follow well. She listens the novel on her phone through speaker. She also noted that speech sounds very monotone. Topics Discussed: Activities to Get Started: Audio Books/Stories- continue with this Computer program. She had downloaded Unified Color, but became overwhelmed with all of theoptions. Discussed thoroughly, went throug several of the basic modules and recc'd she begin with pure-tone, male/female and really focus on consonant and vowel recognition modules (based on auditorytraining data collected) as well as charles recognition. Situation Management/Communication Strategies/Analysis: Challenging Situation: Discussed all of the situations she is feeling are still difficult. She has difficulty conversing with Sunita when they are watching TV, when there is a distance between them and on the phone. Mini sherita dispensed and trained. Watched video on pairing, gave instructions, and practiced. Demonstrated how to adjust processor sherita depending on different situations she is in. Auditory Training: Sentence imitation - able to recognize sentences given a topic without difficult, able to recognizesentences without topic without difficulty Recc'd she listen to sentences in the presence of background noise - gave Home program Session 5 Word imitation - very difficult. Vowel confusions, consonant confusions. Consistently caught 1-2 phonemes out of 3-4. Recc'd she complete the consonant and vowel programs in the basic module of Angel Alerts. Music: noted that she feels like she can hear some of the words, but can't hear the charles. Recc'd she listen to her favorites (e.g. Phillip Dang, Monica Reyes) on repeat to get re-acquainted with them with her new CI access. Also, recc'd that she practice the music module in Medikidz to help her with charles recognition. Telephone: Is using the speakerphone, but still finding this difficult. Discussed phone clip. Dispense at next appointment, but may still prefer speaker to incorporate COUCH ear. Provide ongoing communication strategies training for phone at next session. Home program: Session 5 sentences in noise Unified Color with special focus on basic modules: consonant and vowel recognition Mini sherita: connect to computer for Angelsound auditory training and begin using in noise and for distance Music: listen to favorite albums on repeat and practice with Trudevund Recommendations: Continue with aural rehabilitation. Services Provided By: Sincerely, Newton Pierson, SUPERVISOR MOTORCYCLE REPAIR SHOP Speech-Language Pathologist CAL BILLING REPRESENTATIVE documented in this encounter Plan of Treatment Not on file documented as of this encounter Visit Diagnoses Diagnosis Sensorineural hearing loss, bilateral documented in this encounter Orders Audiology Count Last Ordered Date First Orde red Date EVALUATION, COCHLEAR IMPLANT PROGRAMMING AND AUDITORY REHABILITATION 1 08/31/2020 documented in this encounter Care Teams Geriatric Psychiatrist Relationship Specialty Start Date End Date Enmanuel Gan MD [address] [place] [address] PCP - General Internal Medicine 04/26/20 Tg Houston MD [address] [facility] [address] [place] [address] Consulting Physician Cardiology 07/18/20 documented as of this encounter
--- OUTSIDE RECORDS SUMMARY | 2024-07-12 08:53 | XMS_ITS | Encounter Summary ---
Author Organization [facility] Address [address] [place] [address] Phone Care Team Providers Care Filter Plant Operator Name Role Phone Enmanuel Gan MD Primary Care Provider [phone] Tg Houston MD Unavailable [phone] Reason for Visit * Audiology (Routine) - Closed Specialty Diagnoses / Procedures Referred By Contac t Referred To Contact Audiology Diagnoses Sensorineural hearing loss, bilateral Procedures Evaluation, cochlear implant programming and auditory rehabilitation per [facility] adult cochlear implant protocol Darshana Toth MD [address] [facility] [address] [place] [address] Phone: tel: fax: [facility] Otolaryngology [address] [place] [address] 11th [place] [address] [place] [address] Phone: tel: fax: Referral ID Status Reason Start Date Expiration Date Visits Re quested Visits Authorized [id number] Closed 04/30/2020 05/30/2021 12 12 Encounter Details Date Type Department Care Team (Latest Contact Info) Description 09/25/2020 3:00 PM PLUGGER MAN Procedure visit [facility] Otolaryngology [address] [place] [address] [address]th [place] [address] [place] [address] Norma Oliveira Au.D. [address] [place] [address] Sensorineural hearing loss, bilateral (Primary Dx) Social [...] on file Legal Sex Female 9:09 PM PLUGGER MAN Gender Identity Not on file Sexual Orientation Lesbian 05/24/2019 9: 06 AM CDT documented as of this encounter Procedure Notes * Norma Oliveira Au.D. 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 COUCH(RE): Widex YURI, outside provider ?? Accessories: Mini sherita paired to both processors ?? SERVICES PROVIDED:??Three Month Evaluation of AR Status (Time 3:00-3:40 pm) and Subsequent??Programming ?? PROCEDURES: The patient attended the session with her ,??Sunita, who remained in the waiting room during testing. She is in for a delayed evaluation as she had to take a hiatus for her back surgery. The patient reported: - Prefers P2, map 9 (1200 Hz) as it seems sharper, clearer, and a little louder compared to the 900Hz map - Has been wearing the volume at 7 ?? Evaluation: Testing was completed to assess the patient's current detection of sound and speech understanding and to compare to previous results. RE was plugged during CI only testing. Patient was using: P2, map 12, volume 7, sensitivity 12 Sound field Thresholds 250 143 086 7123 1500 2000 3000 4000 6000 Hz CI LE 22 26 20 18 18 22 24 24 14 dB HL *() indicates results from the pre-operative evaluation CNC Words @ 60 dB SPL: CI:LE List: 3 Word Total: 66% (34%) Phoneme Total: 80% (55%) AzBio Sentences @ 60 dB SPL: CI:LE List: 11 Total: 71% (23%) CI+COUCH List: 12 Total: 90% (77%) Aided soundfield thresholds were good and indicate good audibility for speech. Scores on words and sentences were better compared to preoperative testing. Results of testing were discussed with the patient. Postoperative Audiogram: Otoscopy was unremarkable. Pure tone air conduction thresholds were completed at the left. Testing revealed a profound hearing loss across all frequencies tested. See Audbase and Media for details. ?? Programming: Programming was??completed to optimize current map parameters and to ensure optimal settings.?See custom sound??software for details this date. ?? A head check was completed and magnet site was red with indentation. ?? Impedances were measured and were??all okay??and stable. Patient's preferred map was opened: map 9. C levels were swept and balanced; rated soft to medium-soft. No changes were made. T levels were swept and balanced at 25%; rated very-soft. Minimal changes were made. When live, Cs+2 as patient had been increasing the volume to 7. Following change volume was still comfortable and did not want additional volume. Together with COUCH, volume was comfortable and balanced. This was saved as map 10. Programs were loaded as indicated above. Backup sound processor was programmed identically. ?? I have personally spent the time documented above evaluating the auditory rehabilitation status of this patient. This time does not include time spent on cochlear implant programming or reprogramming. The note as documented above reflects my personal service. ? IMPRESSIONS/PLAN: Return for 6 month evaluation or sooner if needed GER MAN documented in this encounter Plan of Treatment Not on file documented as of this encounter Procedures Procedure Name Priority Date/Time Associated Diagnosis Comments AUDBASE RESULTS 09/25/2020 1:59 PM PLUGGER MAN documented in this encounter Results * AUDBASE RESULTS (09/25/2020 1:59 PM PLUGGER MAN) us Provider Scanning AUDIOLOGY SERVICES ORDERABLES Final Result documented in this encounter Visit Diagnoses Diagnosis Sensorineural hearing loss, bilateral- Primary documented in this encounter Orders Audiology Count Last Ordered Date First Orde red Date EVALUATION, COCHLEAR IMPLANT PROGRAMMING AND AUDITORY REHABILITATION 1 09/21/2020 documented in this encounter Care Teams Filter Plant Operator Relationship Specialty Start Date End Date Enmanuel Gan MD [address] [place] [address] PCP - General Internal Medicine 04/26/20 Tg Houston MD [address] [facility] [address] [place] [address] Consulting Physician Cardiology 07/18/20 documented as of this encounter
--- OUTSIDE RECORDS SUMMARY | 2024-07-12 08:53 | XMS_ITS | Encounter Summary ---
Author Organization [facility] Address [address] [place] [address] Phone Care Team Providers Care Semiconductor Packages Sealer Name Role Phone Enmanuel Gan MD Primary Care Provider [phone] Tg Houston MD Unavailable Reason for Visit * Audiology (Routine) - Closed Specialty Diagnoses / Procedures Referred By Contac t Referred To Contact Audiology Diagnoses Sensorineural hearing loss, bilateral Procedures Evaluation, cochlear implant programming and auditory rehabilitation per [facility] adult cochlear implant protocol Darshana Toth MD [address] [facility] [address] [place] [address] Phone: tel: fax: [facility] Otolaryngology [address] [place] [address] 11th [place] [address] Phone: tel: fax: Referral ID Status Reason Start Date Expiration Date Visits Re quested Visits Authorized [id number] Closed 04/30/2020 05/30/2021 12 12 Encounter Details Date Type Department Care Team (Latest Contact Info) Description 09/25/2020 2:00 PM VACUUM DRUM DRIER OPERATOR Procedure visit [facility] Otolaryngology [address] [place] [address] 11th [place] [address] [place] [address] Zee Garcia Au.D. [address] [place] [address] Sensorineural hearing loss, bilateral Social History Tobacco [...] on file Legal Sex Female 9:09 PM VACUUM DRUM DRIER OPERATOR Gender Identity Not on file Sexual Orientation Lesbian 05/24/2019 9: 06 AM CDT documented as of this encounter Procedure Notes * Zee Garcia Au.D. - 09/25/2020 2:00 PM CST Procedures Diagnosis: Sensorineural hearing loss, bilateral Physician: Dr. Toth SERVICES PROVIDED: Auditory Rehabilitation -??Postlingual hearing loss ?? Procedures: The patient was seen for continued audiologic rehabilitation services focusing on cochlear implant and/or hearing aid adjustment as well as devices and strategies to help manage conversations. ? The patient attended the appointment with Sunita. ?? Patient reported:?? -Feels she is progressing -1200 Hz program sounds better - exercises on that program. Volume up to 7. -Described a fog - seems soft some days, may be attributed to weather. Determining if it has anything to do with other processes going. Patient goals: Written prior to CI surgery. 1.??Understanding conversation in a small group (about 4 people, in quiet) ?2. Less repetition when listening, not having to ask someone to repeat whatthey said ?3. Reduce sudden loud noises - sounds I'm not expecting ?4. Be able to focus on a specific speaker in a theatre setting (live theatre) ?-previously used telecoil with ear loop ?5. Be able to focus on a specific speaker at a seminar ?-movies ?6.??Watch TV without turning on the high volume Aural Rehabilitation:?? Auditory Training: Practice Activities to complete with helper Homework instructions provided - explained how to administer exercises and demonstrated ?? Exercises sent home for practice today - Finish D.5, .B, .D., . E in low level, controlledbackground noise ?? Exercises turned in: open set sentences Exercises: Score: ?? C.6.1 82% sentences correct ?? C.7.1-C.7.3 91% sentences correct ?? C.9.1 85% sentences correct ?? D.1.1-D.2.1 97% words correct ?? D.4.1 90% sentences correct ?? D.4.2 96% words correct ?? D.5.1-D.5.2 100% ?? Self-Practice Activities - Rehabilitation Resources Self-Practice for Auditory Training Audiobooks - On third book. Quality of speech sound is still automated computerized, not Jj Mouse any more. If ready for audio only - start with juvenile books ?? Computer programs: Simeon Sound -PC version, sentences (test - then practice at recommended level) Situation Management/Communication Strategies/Analysis: No new challenging listening situations to discuss. Equipment/HAT:?? Mini sherita dispensed and trained at last appointment - Did not have time to practice today. Phone Clip - Need to determine if Phone clip is needed. Getting close to 90 day exchange window. Spoke with Myra at [facility] and given patient was delayed due to her back surgery they are granting 2 extra weeks past the 10/07/20 date to decide on the phone clip. Spoke with Johnna in [facility] - she determined that Sharon's [employer] S10e is not on the approved list. She can use virgilio as remote control functions only, no streaming. Presented this to Sharon and Sunita. They will decide whether to keep the phone clip or upgrade her phone. They were provided with the close date and the Cochlear phone list. ?? Telephone: Telephone packet provided with explanation of exercises. Patient has not tried these yet, still needs to look at packet. Patient to read over and try exercises, CI side? The note as documented above reflects my personal service. IMPRESSIONS/PLAN: *Decide on Phone Clip? Continue Home program: AT Exercises level D Session 5 sentences in noise [employer] with special focus on basic modules: consonant and vowel recognition Mini sherita: connect to computer for Angels[employer] auditory training and begin using in noise and for distance Music: listen to favorite albums on repeat and practice with Angelsound Telephone packet UM DRUM DRIER OPERATOR documented in this encounter Plan of Treatment Not on file documented as of this encounter Visit Diagnoses Diagnosis Sensorineural hearing loss, bilateral documented in this encounter Orders Audiology Count Last Ordered Date First Orde red Date EVALUATION, COCHLEAR IMPLANT PROGRAMMING AND AUDITORY REHABILITATION 1 09/21/2020 documented in this encounter Care Teams Semiconductor Packages Sealer Relationship Specialty Start Date End Date Enmanuel Gan MD [address] [facility] [address] [place] [address] PCP - General Internal Medicine 04/26/20 Tg Houston MD [address] [facility] [address] [place] [address] Consulting Physician Cardiology 07/18/20 documented as of this encounter
--- OUTSIDE RECORDS SUMMARY | 2024-07-12 08:53 | XMS_ITS | Encounter Summary ---
Author Organization [facility] Address [address] [place] [address] Phone Care Team Providers Care Supervisor Cigar Processing Name Role Phone Enmanuel Gan MD Primary Care Provider [phone] Tg Houston MD Unavailable [phone] Encounter Details Date Type Department Care Team (Late st Contact Info) Description 09/21/2020 Orders Only [facility] Otolaryngology [address] [facility] Medicine 11th [place] [address] [place] [address] Dalia Zacarias Sensorineural hearing loss, bilateral Social History Tobacco [...] on file Legal Sex Female 9:09 PM ACTIVITY LEADER Gender Identity Not on file Sexual [...] 09/21/2020 documented in this encounter Care Teams Supervisor Cigar Processing Relationship Specialty Start Date End Date Enmanuel Gan MD [address] [place] [address] PCP - General Internal Medicine 04/26/20 Tg Houston MD [address] [place] [address] Consulting Physician Cardiology 07/18/20 documented as of this encounter
--- OUTSIDE RECORDS SUMMARY | 2024-07-12 08:53 | XMS_ITS | Encounter Summary ---
Author Organization [facility] Address [address] [facility] [address] [place] [address] Care Team Providers Care Wildlife Biology Technician Name Role Phone Enmanuel Gan MD Primary Care Provider [phone] Tg Houston MD Unavailable Karlie Hernandez RN Unavailable [phone] Reason for Visit * Reason Onset Date Comments Med Management 08/14/2020 Encounter Details Date Type Department Care Team (Late st Contact Info) Description 08/14/2020 Telephone [facility] Cardiology [address] [facility] [address] [place] [address] Tg Houston MD [facility] [address] [place] [address] Med Management Social History Tobacco [...] week 07/30/2020 How often do you attend [facility] or nondenominational services? Never 07/30/2020 Do you [...] on file Legal Sex Female 9:09 PM BALING MACHINE OPERATOR Gender Identity Not on file Sexual Orientation Lesbian 05/24/2019 9: 06 AM CDT documented as of this encounter Miscellaneous Notes * Telephone Encounter - Yanni Elias - 08/15/2020 2:27 PM CST Reviewed with patient who verbalized understanding. NG MACHINE OPERATOR * Telephone Encounter - Tg Houston MD - 08/15/2020 1:46 PM BALING MACHINE OPERATOR When she finishes what I prescribed, she can then use what Dr. Gan prescribed before refilling again, so as not to waste it. NG MACHINE OPERATOR * Telephone Encounter - Yanni Elias - 08/15/2020 12:11 PM CST Patient called back to confirmed that she is only taking the diltiazem that was ordered by Dr. Houston. Her picked up both RX's from [facility] without realizing they were essentially the same medications. Forwarding to Dr. Houston as a FYI. NG MACHINE OPERATOR * Telephone Encounter - Alina Read - 08/14/2020 4:35 PM CST Lm for pt to call the office in regards to medication management per Dr. Houston. NG MACHINE OPERATOR * Telephone Encounter - Tg Houston MD - 08/14/2020 12:25 PM BALING MACHINE OPERATOR [facility] faxed ???potential clinical concern?? on 08/07/2020 the patient had two forms of diltiazem 180 mg filled at [facility] on 07/30/2020, one from me and one from Dr. Gan. Please make sure that she is not taking both. NG MACHINE OPERATOR documented in this encounter Plan of Treatment Not on file documented as of this encounter Visit Diagnoses Not on filedocumented in this encounter Care Teams Wildlife Biology Technician Relationship Specialty Start Date End Date Enmanuel Gan MD [address] [place] [address] PCP - General Internal Medicine 04/26/20 Tg Houston MD [address] [place] [address] Consulting Physician Cardiology 07/18/20 Karlie Hernandez RN [address] [facility] [address] [place] [address] SHOP Outpatient Drum Saw Operator 07/30/20 08/27/20 documented as of this encounter
--- OUTSIDE RECORDS SUMMARY | 2024-07-12 08:54 | XMS_ITS | Encounter Summary ---
Author Organization [facility] Address [address] [place] [address] Care Team Providers Care Cigar Making Machine Supervisor Name Role Phone Enmanuel Gan MD Primary Care Provider [phone] Tg Houston MD Unavailable Karlie Hernandez RN Unavailable Reason for Visit * Reason Comments Successfully Completed Encounter Details Date Type Department Care Team (Late st Contact Info) Description 08/13/2020 SHOP/CHAP Subsequent Outreach [facility] OP CASE MANAGEMENT [address] [place] [address] Karlie Hernandez, RN [address] [facility] [address] [place] [address] Social History Tobacco Use Types [...] How often do you attend [facility] or samaritan services? Never 07/30/2020 Do you [...] file Legal Sex Female 9:09 PM SENIOR BUSINESS CONSULTANT Gender Identity Not on file Sexual Orientation Lesbian 05/24/2019 9: 06 AM CDT documented as of this encounter Progress Notes * Karlie Hernandez, MEDINA - 08/13/2020 3:08 PM CST Spoke with patient for weekly SHOP follow up. She reports she is doing well at this time and overall feels she is doing better this week. She feels her pain level has decreased somewhat and that overall she is able to manage her pain better with the medication. She reports compliance with activity restrictions and spinal precautions. She reports no issues with the surgical site, no s/s of infection. She is scheduled for follow up with spinal surgeon Dr. Michelle tomorrow at 2:30 pm and will havetransportation. Reminded patient to practice hang hygiene and social distancing and to wear a mask while on campus and inside the CAM building. She has no questions or concerns at this time. OCM willfollow up next week, encouraged patient to call in the meantime with any needs. OR BUSINESS CONSULTANT documented in this encounter Plan of Treatment Not on file documented as of this encounter Visit Diagnoses Not on filedocumented in this encounter Care Teams Cigar Making Machine Supervisor Relationship Specialty Start Date End Date Enmanuel Gan MD [address] [place] [address] PCP - General Internal Medicine 04/26/20 Tg Houston MD [address] [facility] [address] [place] [address] Consulting Physician Cardiology 07/18/20 Karlie Hernandez RN [address] [facility] [address] [place] [address] SHOP Outpatient Manager Revenue 07/30/20 08/27/20 documented as of this encounter
--- OUTSIDE RECORDS SUMMARY | 2024-07-12 08:54 | XMS_ITS | Encounter Summary ---
Author Organization [facility] Address [address] [place] [address] Care Team Providers Care Assembler Watch Train Name Role Phone Enmanuel Gan MD Primary Care Provider [phone] Tg Houston MD Unavailable [phone] Karlie Hernandez RN Unavailable [phone] Reason for Visit * Reason Comments Successfully Completed Encounter Details Date Type Department Care Team (Late st Contact Info) Description 07/30/2020 SHOP/CHAP Initial Outreach [facility] OP CASE MANAGEMENT [address] [place] [address] Karlie Hernandez, RN [address] [facility] [address] [place] [address] Social History Tobacco Use Types [...] 07/30/2020 How often do you attend [facility] or temple services? Never 07/30/2020 Do you [...] on file Legal Sex Female 9:09 PM SILVERER Gender Identity Not on file Sexual Orientation Lesbian 05/24/2019 9: 06 AM CDT documented as of this encounter Progress Notes * Karlie Hernandez RN - 07/30/2020 12:16 PM CST Spoke with patient for initial SHOP follow up. Patient was hospitalized at [facility] for 4 days after undergoing a revision to her lumbar spinal fusion. She was discharged home yesterday and reports she isdoing well so far. She endorses some pain, but feels it is well managed with the Oxycodone PRN. Shereports no issues with her surgical incision, we reviewed that it can be left open to air and reviewed s/s of infection to watch for. Instructed patient on activity restrictions - no lifting more than 10 lbs; no twisting, pushing, or pulling; no lifting anything above the head; no tilting chin up or down. Instructed patient that she may shower if her incision is covered with saran wrap, but that she should not submerge her incision until cleared by the surgeon. Patient is currently on Lovenox for 2 weeks, instructed her to not restart Eliquis until she is finished with Lovenox. Patient has a follow up scheduled with surgeon Dr. Michelle on 08/14 and she is aware. Patient has no questions or concerns at this time. She is agreeable to SHOP enrollment and OCM follow up. Patient given my phone number and instructed to call with any needs. OCM to follow up next week. ERER documented in this encounter Plan of Treatment Not on file documented as of this encounter Visit Diagnoses Not on filedocumented in this encounter Care Teams Assembler Watch Train Relationship Specialty Start Date End Date Enmanuel Gan MD [address] [facility] [address] [place] [address] PCP - General Internal Medicine 04/26/20 Tg Houston MD [address] [facility] [address] [place] [address] Consulting Physician Cardiology 07/18/20 Karlie Hernandez RN [address] [facility] [address] [place] [address] SHOP Outpatient Steel Crane Operator 07/30/20 08/27/20 documented as of this encounter
--- OUTSIDE RECORDS SUMMARY | 2024-07-12 08:54 | XMS_ITS | Encounter Summary ---
Author Organization [facility] Address [address] [place] [address] Care Team Providers Care Pharm Tech Name Role Phone Enmanuel Gan MD Primary Care Provider [phone] Tg Houston MD Unavailable [phone] Karlie Hernandez RN Unavailable Reason for Visit * Reason Comments Successfully Completed Encounter Details Date Type Department Care Team (Late st Contact Info) Description 08/06/2020 SHOP/CHAP Subsequent Outreach [facility] OP CASE MANAGEMENT [address] [place] [address] Karlie Hernandez, RN [address] [facility] [address] [place] [address] Social History Tobacco Use Types [...] How often do you attend [facility] or sabianist services? Never 07/30/2020 Do you [...] on file Legal Sex Female 9:09 PM SEED PACKER Gender Identity Not on file Sexual Orientation Lesbian 05/24/2019 9: 06 AM CDT documented as of this encounter Progress Notes * Karlie Hernandez RN - 08/06/2020 3:55 PM CST Patient states she is doing well this week. She received a refill on her pain medication over the weekend and states her pain overall is well controlled. She reports no issues with her surgical incision and states it is healing well. She is moving around more easily and was able to shower today. She reports compliance with spinal precautions and activity restrictions. She has no questions or concerns at this time. Reminded patient to call with any needs, OCM to follow up next week. PACKER documented in this encounter Plan of Treatment Not on file documented as of this encounter Visit Diagnoses Not on filedocumented in this encounter Care Teams Pharm Tech Relationship Specialty Start Date End Date Enmanuel Gan MD [address] [place] [address] PCP - General Internal Medicine 04/26/20 Tg Houston MD [address] [place] [address] Consulting Physician Cardiology 07/18/20 Karlie Hernandez, RN [address] [facility] [address] [place], [place] [id number] SHOP Outpatient Induction Coordination Power Engineer 07/30/20 08/27/20 documented as of this encounter
--- OUTSIDE RECORDS SUMMARY | 2024-07-12 08:54 | XMS_ITS | Encounter Summary ---
Author Organization [facility] Address [address] [place] [address] Phone Care Team Providers Care Dynamometer Tester Engine Name Role Phone Enmanuel Gan MD Primary Care Provider [phone] Tg Houston MD Unavailable [phone] Reason for Visit * Audiology (Routine) - Closed Specialty Diagnoses / Procedures Referred By Contac t Referred To Contact Audiology Diagnoses Sensorineural hearing loss, bilateral Procedures Evaluation, cochlear implant programming and auditory rehabilitation per [facility][1] adult cochlear implant protocol Darshana Toth MD [address] [facility] [address] [place] [address] Phone: tel: fax: [facility] Otolaryngology [address] [place] [address] 11th [place] [address] [place] [address] Phone: tel: fax: Referral ID Status Reason Start Date Expiration Date Visits Re quested Visits Authorized [id number] Closed 04/30/2020 05/30/2021 12 12 Encounter Details Date Type Department Care Team (Latest Contact Info) Description 07/18/2020 9:00 AM LOGISTICS SUPPORT Procedure visit [facility] Otolaryngology [address] [place] [address] 11[address] [place] [address] [place] [address] Norma Oliveira Au.D. [address] [place] [address] Sensorineural hearing loss, bilateral (Primary Dx) Social History Tobacco Use Types Packs/Day Years Used Date Smoking Tobacco: Never Smokeless Tobacco: Never Alcohol Use Standard Drinks/Week Comments Yes 5 (1 standard drink = 0.6 oz pur e alcohol) Comments No Sex and Gender Information Value Date Recorded Sex Assigned at Not on file Legal Sex Female 9:09 PM LOGISTICS SUPPORT Gender Identity Not on file Sexual Orientation Lesbian 05/24/2019 9: 06 AM CDT documented as of this encounter Procedure Notes * Norma Oliveira Au.D. - 07/18/2020 9:00 AM CST Procedures Cochlear Implant (Active) L/R/Bilateral left Ring Conductor Cochlear [employer] Internal [id number] External Kanso 2/ dunlap/ 4(i) Provider Navneet Date of CI surgery 06/19/20 Date of IS 07/09/20 MAPS in Processor: SCAN+all IP V6, S12 P1: map 5 (S&B) P2: map 6 (Cs&Ts+4) COUCH(RE): [employer] YURI, outside provider ?? SERVICES PROVIDED: Subsequent Programming - 1 week post initial stimulation ?? PROCEDURES: The patient attended the session with her , Sunita. The patient reported: - Has been doing side by side reading with Sunita - Noticing lots of sounds with her sound processor. Sound quality sounds like static, speech, and some environmental noises sound like they should - Wearing P3, volume 9 - Radha is not recognizing the sound processor since yesterday. - Realized she did not have the sound processor in the content manager correctly. She was able to charge itafter this realization - Having back surgery next week and will need to cancel her appointments for the next couple weeks.Operation is on the and she will need to stay inpatient for a few days. - Notices tinnitus less when wearing sound processor ?? Programming: Programming was completed to optimize current map parameters and to ensure optimal settings. See REMOTV sound software for details this date. A head check was completed and no redness or irritation was seen at the magnet site. Magnet coupling was a little loose. Magnet strength increased to 4(i). ?? Impedances were measured and were all okay. ?? Patient's preferred map was opened: map 3. New ALJs were collected on all odd electrodes, E20, and E22. C levels were set to medium-loud and T levels were set to first hearing and interpolated. Counted Ts were completed on electrodes 22, 20, 19, 17, 15, 11, 7, 4, 1. T levels were set to counted and again interpolated. C levels were swept and balanced; rated medium. Minimal changes were made. T levels were swept and balanced; rated very-soft. Minimal changes were made. Prior to going live Cs-5. When live with COUCH, patient reported sound was medium-loud and comfortable. Sound had some crackly feedback with speech with CI alone. Ts-3 and crackle improved. This was saved as map 5. ?? Progressive maps were created as indicated above. Mixing ratio set to accessory only. Enabled sensitivity control and forward focus. ?? The final programs were loaded as indicated above. Discussed dispensing back up processor. Patient does not want her back up until after her back surgery. Following programming, aided soundfield thresholds were completed to assess the patient's audibility with the current map. Patient was using: P1, map 5, volume 6, sensitivity 12. Results were as follows: 250 597 054 8563 1500 2000 3000 4000 6000 Hz CI LE 18 24 DNT 20 DNT 16 18 18 14 dB HL Aided soundfield thresholds were good and indicate good audibility for speech. Results were discussed with the patient. ?? Aural Rehabilitation: Adjustment Counseling - Handouts provided at last appointment, Pt. to read over and will discuss next appointment Adjustment to low level environmental sounds and new sound quality Beginning to Use a Cochlear Implant/Voice Level/Speech Clarity Cochlear Implant Explanation (What We Want Other to Know...) Steps in using your speech processor Hierarchy of Listening Experiences Communication Strategy Training - Handouts provided at last appointment, will discuss at a later date General Listening Tips Listening Activity Checklist ?? Auditory Training: Side by side reading Sound Success - self practice activities handout given today IMPRESSIONS/PLAN: Return for continued programming and aural rehabilitation following back surgery STICS SUPPORT documented in this encounter Plan of Treatment Not on file documented as of this encounter Visit Diagnoses Diagnosis Sensorineural hearing loss, bilateral- Primary documented in this encounter Care Teams Dynamometer Tester Engine Relationship Specialty Start Date End Date Enmanuel Gan MD [address] [facility] [address] [place] [address] PCP - General Internal Medicine 04/26/20 Tg Houston MD [address] [facility] [address] [place] [address] Consulting Physician Cardiology 07/18/20 documented as of this encounter
--- OUTSIDE RECORDS SUMMARY | 2024-07-12 08:54 | XMS_ITS | Encounter Summary ---
Author Organization [facility] Address [address] [place] [address] Phone Care Team Providers Care Retail Visual Merchandiser Name Role Phone Enmanuel Gan MD Primary Care Provider [phone] Tg Houston MD Unavailable Reason for Visit * Neurology (Routine) - Closed Specialty Diagnoses / Procedures Referred By Contac t Referred To Contact Diagnoses Neuropathy of both feet History of spinal fusion for scoliosis Procedures EMG/NCV -Please select the performing region: [facility] (All Locations); Procedure performed at: [facility] EMG [facility]; Clinical Summary: surgery planning; Reason for referral or diagnostic question: BLE EMG; Ultrasound: As determined by exam... Jeremy Michelle MD [address] [facility] [place] [address] Phone: tel: fax: [facility] (All Locations) Referral ID Status Reason Start Date Expiration Date Visits Re quested Visits Authorized [id number] Closed 07/10/2020 08/09/2021 1 1 Encounter Details Date Type Department Care Team (Latest Contact Info) Description 07/23/2020 9:30 AM MORTGAGE PROCESSING CLERK Procedure visit [facility] Neurological Testing [address] [facility] [address] 6th [place] [address] [place] [address] Neuropathy of both feet ; History of spinal fusion for scoliosis Social History Tobacco Use Types Packs/Day Years Used Date Smoking Tobacco: Never Smokeless Tobacco: Never Alcohol Use Standard Drinks/Week Comments Yes 5 (1 standard drink = 0.6 oz pur e alcohol) Comments No Sex and Gender Information Value Date Recorded Sex Assigned at Not on file Legal Sex Female 9:09 PM MORTGAGE PROCESSING CLERK Gender Identity Not on file Sexual Orientation Lesbian 05/24/2019 9: 06 AM CDT documented as of this encounter Procedure Notes * Kiran Fisher MD - 07/23/2020 9:30 AM CSTAssociated Order(s): EMG/NCV -Please select the performing region: [facility] (All Locations); Procedure performed at: [facility] EMG [facility]; Clinical Summary: surgery planning; Reason for referral or diagnostic question: BLE EMG; Ultrasound: As determined by exam... Pre-Procedure Diagnose(s): Neuropathy of both feet; History of spinal fusion for scoliosis Post-Procedure Diagnose(s): Neuropathy of both feet; History of spinal fusion for scoliosis Images from the original note were not included. EMG/NCV -Please select the performing region: [facility] (All Locations); Procedure performed at: [facility] EM[facility]; Clinical Summary: surgery planning; Reason for referral or diagnostic question: BLE EMG; Ultrasound: As determined by exam... Date/Time: 07/23/2020 1:24 PM Performed by: Kiran Fisher MD Authorized by: Jeremy Michelle MD [facility] DEPARTMENT OF NEUROLOGY NEUROMUSCULAR ELECTRODIAGNOSTIC LABORATORY CLINICAL ELECTROMYOGRAPHY REPORT Patient: Macie Briseno Birthdate: 1945 Study No: [id number] Referring M.D.: Dr. Michelle Date of Study: 07/23/2020 Examined by: Dr. Fitzgerald/Phillip REASON FOR REFERRAL: A 74-year-old woman, with history of lower back pain and multiple lower back surgeries over the last 4 years, complains of paresthesia in her legs. Query peripheral polyneuropathy. SUMMARY OF FINDINGS: 1) The right peroneal and tibial CMAP amplitudes, distal motor latencies and motor conduction velocities were normal. 2) Bilateral sural and right radial antidromic SNAP amplitudes, distal sensory onset latencies and sensory conduction velocities were normal. 3) The tibial H wave latencies were at the upper of limit bilaterally; the H wave latency was slighty more prolonged on the left on comparison to the right. 4) Needle electromyography was performed on the following muscles on the right: tibialis anterior, medial gastrocnemius, vastus medialis, adductor longus, iliopsoas, tensor fascia tino, long head of the biceps femoris and semitendinosus. Fibrillations and positive sharp waves were seen in the right tensor fascia tino. A few neurogenic MUPs were seen in the tibialis anterior, medial gastrocnemius,vastus medialis, tensor fascia tino, long head of the biceps femoris and semitendinosus. CONCLUSION/INTERPRETATION: The study shows evidence of multiple level radiculopathy L3/L4/L5 and S1. This conclusion is based on the mild chronic neurogenic changes in the distribution of the above-mentioned myotomal distribution. There are no findings in this study to support large fiber peripheral polyneuropathy. Temperature was maintained above 32??C in the arms and above 30??C in the legs for nerve conductionstudies. Attestation: By signing this report, the attending Electromyographer certifies that he/she personally reviewed the electrodiagnostic study and edited the report to fully conform with his/her intent. Abbreviations : CMAP = compound muscle action potential SNAP = sensory nerve action potential MUP = motor unit potential Fib = fibrillation PSW = positive sharp wave NCS = nerve conduction study RNS = repetitive nerve stimulation EMG = electromyography CNAP = Compound Nerve Action Potential Inquiries regarding study/report - call . Appointments - call . Fax no.: . Our correspondence address : [address], [address], [place] [address]. Normal values Motor conduction Distal latency (ms) Conduction velocity (m/s) CMAP amplitude (mV) Median < 4.4 > 49 > 4 Ulnar < 3.5 > 49 > 6 Median distal latency minus ulnar distal latency not > 1.4 ms Peroneal < 6.1 > 41 > 2 Tibial < 6.1 > 41 > 3 Sensory conduction Antidromic Wrist-digit Onset latency (ms) Conduction velocity (m/s) SNAP amplitude (mV) Median < 3.4 > 44 > 7 Ulnar < 3.1 > 44 > 5 Median distal latency minus ulnar distal latency not > 0.7 ms Sural < 3.7 > 38 > 5 Mixed Nerve Conduction Mixed orthodromic Palm-wrist Peak latency (ms) CNAP amplitude (mV) Median < 2.3 > 9 Ulnar < 2.3 > 4 Median peak latency minus ulnar peak latency not > 0.3 ms Late responses and reflex studies R1 (ms) Ipsilateral R2 (ms) Contralateral R2 (ms) Blink < 13 < 40 < 41 Reflex/Direct latency ratio 2.6 - 4.6 Sides difference < 1.2 < 5 ms between ipsi- and contralateral R2 elicited by one stimulus < 7 ms between R2, each obtained with an independent stimulation Median Ulnar Peroneal Tibial F wave minimal latency < 31 < 32 < 56 < 58 Tibial H reflex latency (ms): < 34; [id number] difference < 1.5 [facility] Neurology, EMG Lab [place], [place] Data Report Full Name: Macie Briseno Gender: Female Date of : 1945 Visit Date: 07/23/2020 09:25 Age: 74 Years 11 Months Old Examining Physician: Phillip Referring Physician: Miguel Angel Height: 5 feet 3 inch MNC Nerve / Sites Latency Amplitude Segments Distance Lat Diff Velocity ms mV mm ms m/s R Peroneal - EDB Ankle 4.90 2.9 Ankle - EDB 100 Fib head 11.04 2.3 Fib head - Ankle 270 6.15 43.9 Pop fossa 13.18 2.3 Pop fossa - Fib head 110 2.14 51.5 Pop fossa - Ankle 8.28 R Tibial - AH Ankle 4.74 4.6 Ankle - AH 100 Pop fossa 12.29 4.7 Pop fossa - Ankle 340 7.55 45.0 SNC Nerve / Sites Onset Lat Peak Lat Amplitude OnsetDiff Distance Cond Wagner ms ms ??V ms mm m/s R Radial - Anatomical snuff box (Forearm) Forearm 1.9 2.6 18 1.9 100 53 R Sural - Ankle (Calf) Calf 3.2 4.4 9 3.2 140 43 L Sural - Ankle (Calf) Calf 3.0 3.9 11 3.0 140 47 H Reflex Nerve H Lat Lat Hmax ms ms R Tibial - Soleus 34.1 20.3 L Tibial - Soleus 35.7 21.4 Summary Insertional Spontaneous MUAP Comments Muscle Nerve Roots Activity Fib PSW Fasc Other Dur. Amp Poly Recruit Activate Comments R. Tibialis anterior Deep peroneal (Fibular) L4-L5 Normal None None None . Sl Incr Sl Incr None Normal Normal . R. Gastrocnemius (Medial head) Tibial S1-S2 Normal None None None . Sl Incr Normal None Normal Normal . R. Vastus medialis Femoral L2-L4 Normal None None None . Mod Incr Mod Incr 25% Mod Red Normal . R. Adductor longus Obturator L2-L4 Normal None None None . Sl Incr Normal None Normal Normal . R. Iliopsoas Femoral L2-L3 Normal None None None . Normal Normal None Normal Normal . R. Tensor fasciae latae Superior gluteal L4-S1 Increased 1+ 1+ None . Sl Incr Normal 25% Normal Normal . R. Biceps femoris (long head) Sciatic (tibial division) L5-S2 Normal None None None . Sl Incr Sl Incr None Normal Normal . R. Semitendinosus Sciatic (tibial division) L5-S2 Sl Incr None None None . Sl Incr Sl Incr None Normal Normal . GAGE PROCESSING CLERK documented in this encounter Plan of Treatment Not on file documented as of this encounter Procedures Procedure Name Priority Date/Time Associated Diagnosis Comments EMG/NCV Routine 07/23/2020 9:30 AM MORTGAGE PROCESSING CLERK Neuropathy of both feet History of spinal fusion for scoliosis documented in this encounter Results * EMG/NCV (07/23/2020 9:30 AM MORTGAGE PROCESSING CLERK) Anatomical Region Laterality Modality Other Narrative 07/23/2020 9:30 AM MORTGAGE PROCESSING CLERK Kiran Fisher MD ? 07/23/2020 ??1:24 PM EMG/NCV -Please select the performing region: [facility] (All Locations); Procedure performed at: [facility]; Clinical Summary: surgery planning; Reason for referral or diagnostic question: BLE EMG; Ultrasound: As determined by exam... Date/Time: 07/23/2020 1:24 PM Performed by: Kiran Fisher MD Authorized by: Jeremy Michelle MD Jeremy Michelle MD NEUROLOGY ORDERABLES Final Result documented in this encounter Visit Diagnoses Diagnosis Neuropathy of both feet History of spinal fusion for scoliosis documented in this encounter Care Teams Retail Visual Merchandiser Relationship Specialty Start Date End Date Enmanuel Gan MD [address] [facility] [address] [place] [address] PCP - General Internal Medicine 04/26/20 Tg Houston MD [address] [facility] [address] [place] [address] Consulting Physician Cardiology 07/18/20 documented as of this encounter
--- OUTSIDE RECORDS SUMMARY | 2024-07-12 08:54 | XMS_ITS | Encounter Summary ---
Author Organization [facility] Healthcare Address [address] [place] [address] Care Team Providers Care Database Reporting Consultant Name Role Phone Enmanuel Gan MD Primary Care Provider [phone] Tg Houston MD Unavailable [phone] Encounter Details Date Type Department Care Team (Late st Contact Info) Description 07/25/2020 8:26 AM MEDICAL COMMUNICATION SPECIALIST Anesthesia Event [facility] [address] [place] [address] Gagan Church MD [address] [facility] [place] [address] Dulce Velasquez, APPLICATION ADMINISTRATOR [address] [facility] [id number] [place] [address] Anesthesia Record Procedure Summary Procedure Name Responsible Anesthesiologist Anesthesia Start Time Anesthesia Stop Time Revision Posterior spinal instrumented fusion T12-L4, exploration of fusion, removal of hardware L2-L4, L1/2 laminectomy with foraminotomies at L1/2, L2/3, L3/4, autograft, allograft, bone morphogenetic protein, spinal cord monitoring. (Spine Thoracic) Gagan Church MD 07/25/20 0826 07/25/20 1352 Events Date Time Event Comment 07/25/2020 0637 In Preop 0820 0826 An Start 0834 In Room 0835 An Start Data 0845 An Induction The patient was reevaluated immediately before moderate or deep sedation use and before anesthesia induction. 0848 An Intubation 0914 Patient Positioned Prone 0950 Anesthesia Ready 0955 Proc Start 0955 Incision Start 1313 Proc Fin 1316 Position Supine 1323 An Extubation 1327 Out of Room 1327 an stop data 1351 Handoff to RN I completed my handoff [...] disposition at the time of handoff: PACU 1352 An Stop Meds Name Total midazolam PF 2 mg lidocaine 1 % PF 60 mg fentaNYL 100 mcg propofol 120 mg propofol 1,383.93 mg succinylcholine 70 mg phenylephrine 100 mcg/mL 850 mcg ePHEDrine 50 mg ondansetron PF (ZOFRAN) 2 mg/mL injectio n 4 mg glycopyrrolate 1 mg methadone 10 mg/mL 10 mg vancomycin 1,000 mg/200 mL in dextrose 5 % (premix) 1,000 mg 1,000 mg ceFAZolin 2,000 mg remifentaniL (ULTIVA) 2,500 mcg in sodium chloride 0.9% 50 mL (50 mcg/mL) infusion 0.73 mg phenylephrine infusion (100 mcg/mL) 9.04 mg tranexamic acid (CYKLOKAPRON ) 1,000 mg in sodium chloride 0.9% 100 mL (10 mg/mL) infusion 1,145.47 mg tranexamic acid 1,560 mg dexamethasone 4 mg/ml 8 mg NS 0.9% 1,000 mL NS 0.9% 0 mL Lactated Ringer's (LR) infusion 1,050 mL * Agents Name O2% N2O O2 Air Sevoflurane Desflurane Inspired Desflurane Inspired Sevoflurane * Blood No blood administrations on file. Lines, Drains, and Airways Type Details Placement Removal Cochlear Implant 06/19/20; 1200 06/19/20 1200 b y Marissa Sanchez, [place] Hearing Aid 12/11/17; 07/15/22; 0821 12/11/17 0000 by Anahy Frances Au.D. 07/15/22 0821 by Kathleen Marcum Ear Mold 12/11/17; 07/15/22; 0821 12/11/17 0000 by Anahy Frances Au.D. 07/15/22 0821 by Kathleen Marcum RETIRED Surgical Site 06/19/20; 1148; Le ft; Ear; Post-Auricular; 07/25/20; 1414; Not present on admission 06/19/20 1148 by Ragini Cuadra RN 07/25/20 1414 by Scott Yee RN Peripheral IV Placement Date: 07/25/20; Placement Time: 0720; Catheter Size: 18 G; Orientation: Left; Location: Wrist; Site Prep: Chlorhexidine; Technique: Anatomical landmarks; Inserted by: benjie lomas; Insertion Attempts: 1; Patient Tolerance: Tolerated well; Removal Date: 07/29/20; Removal Time: 1520 07/25/20 0720 by Rosie Ro RN 07/29/20 1520 by Pamela Rondon RN Urethral Catheter Placement Date: 07/25/20; Placement Time: 0845; Inserted by: sara jara; Type: Non-latex; Size: 16 Fr.; Balloon Size: 10 mL; Removal Date: 07/28/20; Removal Time: 0829; Removal Reason: Per order 07/25/20 0845 by Gianna Good RN 07/28/20 0829 by Pamela Rondon RN ETT Placement Date: 07/25/20; Placement Time: 0849 (created via procedure documentation); Mask Ventilation: 0; Technique: Direct laryngoscopy; Type: ETT - single; Single Lumen Tube Size: 7 mm; Cuffed: Yes; Laryngoscope: Liane; Blade Size: 3; Location: Oral; Grade View: Grade I; Insertion Attempts: 2; Placement Verification: Auscultation, Capnometry; Removal Date: 07/25/20; Removal Time: 1323 07/25/20 0849 by Cr Felipe CRNA 07/25/20 1323 by Cr Felipe CRNA Peripheral IV Placement Date: 07/25/20; Placement Time: 0850; Catheter Size: 18 G; Orientation: Right; Location: Forearm; Site Prep: Alcohol; Technique: Anatomical landmarks; Inserted by: britney; Removal Date: 07/29/20; Removal Time: 06; Removal Reason: Catheter damage 07/25/20 0850 by Cr Felipe, NETWORK SYSTEMS ADMINISTRATOR 07/29/20 0618 by Dung Plaza RN Arterial Line Placement Date: 07/25/20; Placemnt Time: 0855; Size: 20 G; Orientation: Left; Location: Radial; Site Prep: Alcohol; Technique: Anatomical landmarks; Inserted by: meghan; Insertion Attempts: 1; Securement: Taped, Transparent dressing; Removal Date: 07/25/20; Removal Time: 151; Removal Reason: Therapy completed 07/25/20 0855 by Cr Felipe, NETWORK SYSTEMS ADMINISTRATOR 07/25/20 1510 by Scott Yee RN Closed/Suction/Open Drain 07/25/20; 1249; No; 1; Right, Posterior; Back; Accordion; 10 Fr. 07/25/20 1249 by Agatha Peters RN 06/05/21 1527 by Sharon Leo, [employer] RETIRED Surgical Site 07/25/20; 1313; Ba ck; xeroform 4x4 tegaderm; 12/03/23; 1859; Not present on admission (from previous admission) 07/25/20 1313 by Gianna Good RN 12/03/23 1859 by Claudia Jerez, [employer] documented in this encounter Social History Tobacco Use Types Packs/Day Years Used Date Smoking Tobacco: Never Smokeless Tobacco: Never Alcohol Use Standard Drinks/Week Comments Yes 5 (1 standard drink = 0.6 oz pur e alcohol) Comments No Sex and Gender Information Value Date Recorded Sex Assigned at Not on file Legal Sex Female 9:09 PM MEDICAL COMMUNICATION SPECIALIST Gender Identity Not on file Sexual Orientation Lesbian 05/24/2019 9: 06 AM CDT documented as of this encounter OR Notes * Anesthesia Postprocedure Evaluation - Debora Germain MD - 07/25/2020 2:58 PM CST Patient: Macie Briseno Procedure Summary Date: 07/25/20 Room / Location: [facility] OR POD 5 ROOM 236 / [facility] OR POD 5 Anesthesia Start: 825 Anesthesia Stop: 1351 Procedures: Revision Posterior spinal instrumented fusion T12-L4, exploration of fusion, removal of hardware L2-L4, L1/2 laminectomy with foraminotomies at L1/2, L2/3, L3/4, autograft, allograft, bone morphogenetic protein, spinal cord monitoring. (N/A Spine Thoracic) REMOVAL HARDWARE SPINE (N/A Spine Thoracic) BONE GRAFT WITH BONE MORPHOGENIC PROTEIN (N/A ) SPINAL CORD MONITORING (N/A ) Diagnosis: Acute low back pain, unspecified back pain laterality, unspecified whether sciatica present (Acute low back pain, unspecified back pain laterality, unspecified whether sciatica present [M54.5]) Surgeons: Jeremy Michelle MD Responsible Provider: Gagan Church MD Anesthesia Type: general/TIVA ASA Status: 3 Anesthesia Type: general/TIVA Last vitals BP 103/52 Pulse 72 Temp 36 ??C (96.8 ??F) (Temporal) Resp 13 SpO2 100% Anesthesia Post Evaluation Patient location during evaluation: PACU Patient participation: complete - patient participated Level of consciousness: fully awake Pain management: satisfactory to patient Airway patency: adequate and patent Evidence of recall: no Anesthetic complications: no Cardiovascular status: acceptable and hemodynamically stable Respiratory status: acceptable Hydration status: acceptable Pt is: normothermic Nausea/Vomiting status: none CAL COMMUNICATION SPECIALIST * Anesthesia Procedure Notes - Cr Felipe CRNA - 07/25/2020 10:13 AM MEDICAL COMMUNICATION SPECIALIST Associated Order(s): Airway Airway Patient location: OR Urgency: elective Date/time: 07/25/2020 8:49 AM Indications for airway management: anesthesia Difficult airway: no Staff: Supervising provider: Barbara Luis MD Placed by: NETWORK SYSTEMS ADMINISTRATOR: Cr Felipe CRNA Emergent airway documentation: Risks and benefits discussed: yes Consent obtained: yes Consent given by: patient Airway prep: Preoxygenated: yes Patient position: sniffing MILS maintained throughout: yes Mask difficulty assessment: 0 - not attempted Sedation level during airway: GA Final airway details: Final airway type: endotracheal airway Tube type: ETT ETT size: 7.0 mm Cuffed: yes Technique used for successful ETT placement: direct laryngoscopy Devices/Methods used in placement: intubating stylet Insertion site: oral Blade type: Liane Blade size: 3 Cormack-Lehane (direct): grade I - full view of glottis Cuff volume: 8 mL Cuff inflated with: air ETT to lips: 20 cm Placement verified by: auscultation and CO2 detection Airway secured with: prone view tape and tegaderm Number of attempts: 2 CAL COMMUNICATION SPECIALIST * Anesthesia Preprocedure Evaluation - Barbara Luis MD - 07/13/2020 11:23 AM CST Images from the original note were not included. [facility] for Preoperative Assessment and Planning Preoperative Evaluation Record Evaluation type/location: [facility] Planned procedure site: [facility] (Pods 2/3/5/[facility]) Date: 07/13/20 Anesthesia Evaluation Macie Briseno is a 74 y.o. female Procedure(s): FUSION DECOMPRESSION LAMINECTOMY WITH INSTRUMENTATION - [facility]-Revision Posterior spinal instrumented fusion T12-L4, exploration of fusion, removal of hardware, autograft, allograft, bone morphogenetic protein, spinal cord monitoring. REMOVAL HARDWARE SPINE BONE GRAFT WITH BONE MORPHOGENIC PROTEIN SPINAL CORD MONITORING Pre-Op Diagnosis Codes: * Acute low back pain, unspecified back pain laterality, unspecified whether sciatica present [M54.5] HISTORY HPI Macie Briseno is a 74 y.o. female with a history of Atrial fibrillation with RVR in the 170s (06/27/2020), hyperlipidemia, left cochlear implant, and multiple back surgeries who is being evaluatedprior to undergoing a spinal fusion from T12-L4. Past Medical History Information obtained from: patient and chart. Neurological + Psychiatric history - anxiety Pertinent negatives: seizures; neuromuscular disease; CVA/stroke; TIA; CEA; ICA stenosis; dementia/mild cognitive impairment and carotid artery stent Cardiovascular + Hyperlipidemia + Systolic or diastolic dysfunction w/o CHF Diastolic dysfunction w/o CHF. Diastolic function: stage I - impaired relaxation LVEF: >70%. + Current valvular disease (Echo 06/28/20) - MR - mild; + Atrial fibrillation/flutter (A-fib with RVR to 170's during recent hospitalization 06/27/2020-nowon flecainide) - Current Rhythm: non- fibrillation/flutter. 2019 Rhythm type: paroxysmal (multiple episodes < 7 days). Pertinent negatives: hypertension ; CAD ; [place] ; CABG ; arrhythmia; pacemaker/ICD; PVD; DVT/PE; negative for CHF; drug-eluting stent(s); bare metal stent(s); unknown stent(s) type and coronary angioplasty Respiratory Pertinent negatives: COPD; asthma; sleep apnea (MIGUEL A); pulmonary hypertension; no O2 use outside thehospital and non-smoker Hepatic / Heme Pertinent negatives: liver disease; history of anemia and history of thrombocytopenia Gastrointestinal Pertinent negatives: GERD and hiatal hernia Renal / Pertinent negatives: renal disease; dialysis and nephrolithiasis Musculoskeletal/Pain + Chronic pain (back pain ) - back pain. Pertinent negatives: chronic opioid use; previous treatment for opioid use disorder; osteoarthritisand headaches Endocrine / Other Pertinent negatives: diabetes mellitus; thyroid disease; obesity (BMI >30); cancer history; rheumatological disease; transplanted organ; infectious disease; eye disorder and pancreatitis Comments: Thyroid nodules; being monitored by PCP. Functional Capacity Functional capacity: 4-6 METs Functional capacity limited by a non-cardiovascular, non-pulmonary condition. Comments: Able to walk 2 FOS or 2 blocks without CP or SOB. Review of Systems + chest pain (06/27/20 with hospitalization; none at CPAP appointment) + palpitations (A-fib) + pedal edema (wears compression stocking; since she started new cardiac medications she has had some bilateral ankle swelling. ) + muscle weakness (Bilateral legs; chronic issue) + chronic pain (back pain ) + numbness/tingling (Bilateral leg radiculopathy; radiates to thighs) + hard of hearing (left sided cochlear implant; 06/19/20; hearing aid right ear. Hx Meniere's disease.) + vision loss (wears glasses ) Pertinent negatives: productive cough; wheezing; SOB; recent cold/flu; fever; orthopnea; PND; heavymenses; previous transfusion; transfusion reaction; melena/hematochezia; easy bruising; bleeding problems; syncope; dizziness; heartburn; nausea; dysphagia; diarrhea; dentures/partials; chipped/looseteeth; abdominal pain; diaphoresis and no unexpected weight change PAT Summary and Plans Cardiac risk classification of planned procedure: intermediate cardiac risk. Preoperative assessment status: lab tests ordered. Initial preoperative evaluation discussed with: Koby Welch MD Additional comments: Macie Briseno is a 74 y.o. female who is being evaluated prior to undergoing an intermediate cardiac risk surgery. Revised Cardiac Risk Index factors are (none) for a total RCRI of 0 out of 6. Functional capacity is 4-6 METs. Patient with recent admission to [facility] for Afib with RVR rate up to 170s with hypokalemia( K+ 3.0 repleted during hospitalization). Outpatient potassium chloride changed to 40 meq daily. Hypokalemia likely secondary to HCTZ despite Triamterene. Continue Diltiazem daily and Flecainide BID. Serial troponins (0.1, 0.1, 0.91) Had stress test 06/28/20 that demonstrated no ischemia. TTE 06/27/20 that showed and EF of >70% with grade 1 diastolic dysfunction, mild MR and small pericardial effusion. Follow up with Dr. Tg Houston on 07/16/20 at 1:00p.m. Will try to retrieve note from that office visit. This patient has a history of atrial fibrillation at LOW risk for perioperative thromboembolic events with a [id number] score of 2 and no known history of related thromboembolic events, as per the 2017 ACC Expert Consensus Pathway. The patient is on oral anticoagulation therapy with apixaban (ELIQUIS) and is scheduled for a procedure with a planned/possible nerve block and/or is at low or intermediate risk for perioperative thrombosis. Estimated creatinine clearance is 52.6 ml/min. We recommend holding all doses of this anticoagulant for 3 days (72 hours) prior to the procedure. Therapeutic anticoagulation should be resumedpost-operatively when the bleeding risk is acceptable. Alternative anticoagulation therapies can beused in the interim if acceptable. [employer] staff message sent to surgeon's office. Please call the CPAP attending ([phone]) to revisit risk assessment, with any questions, or to discuss alternative management plans.?? Obstructive sleep apnea (MIGUEL A) screening status is STOP-Bang=2 suggesting low risk for MIGUEL A. Blood bank needs for day of procedure: T&C 2 unit pRBCs Pending labs/tests include: CBC, CMP, T&S, Urinalysis flex, Vitamin D, ESR. PTT ordered by surgeon; not drawn today due patient currently being in Eliquis therefore not indicated. Preoperative evaluation performed by Ivette Mendoza NP on 07/13/20 at 11:48 AM. I have interviewed and examined the patient and agree with this Pre-Procedural Assessment performedby the above primary evaluating APPLICATION ADMINISTRATOR, who is currently in the CPAP APPLICATION ADMINISTRATOR Orientation interval. Signed by: Belkis Saldana NP on 07/13/20 at 7:15 PM . Follow up note . Labs reviewed and are without significant findings. Awaiting outside records. Surgeon's office reviews laboratory results independently. Follow-up completed by: Dulce Velasquez NP on 07/16/20 at 11:10 am Follow up note Note reviewed from Dr. Houston 07/16: Since I last saw her she was hospitalized in early June at [facility] with prolonged chest discomfort (different from her usual microvascular angina) associated with mild troponin elevation. An echocardiogram and Lexiscan study were unremarkable, and her diagnosis was unclear until her symptoms recurred on the day of anticipated discharge and corresponded with atrial fibrillation. Shewas anticoagulated and started on flecainide and has had no further episodes since. ?? She is scheduled to undergo extensive back surgery by Dr. Michelle at [place] on 07/25/2020. A preop EKG from 07/13/2020 is abnormal, but unchanged for her. Recent diagnosis of paroxysmal atrial fibrillation as a cause of intermittent episodes of nonexertional chest discomfort. She has had no further symptoms since being started on flecainide. Because ofa high chads Vasc score she is also on Eliquis. Discussed with her and her partner the rationale for this regimen.Eliquis can be stopped three days prior to her upcoming back surgery, for which she is cleared. She should be at low risk of cardiac complications in the course of this. CPAP complete Follow-up completed by: Dulce Velasquez NP on 07/17/20 at 10:25 AM Patient Active Problem List Diagnosis ??? Microvascular angina (CMS/HCC) ??? Dyslipidemia ??? Essential hypertension ??? Sensorineural [...] ??? Major depressive disorder, single episode, moderate (CMS/HCC) ??? Primary osteoarthritis involving multiple joints ??? Pure hypercholesterolemia ??? S/P hip replacement ??? S/P laparoscopic cholecystectomy ??? Tinnitus ??? Sudden idiopathic hearing loss of right ear ??? Surgical follow-up care ??? Essential hypertension, benign ??? Sensorineural hearing loss (SNHL) of both ears ??? SNHL (sensory-neural hearing loss), asymmetrical ??? Meniere's disease of both ears ??? Abnormal ECG ??? Inflammatory spondylopathy of thoracic region (CMS/HCC) ??? History of spinal fusion for scoliosis ??? Acute low back pain Past Medical History: Diagnosis Date ??? Auditory vertigo Meniere's disease ??? Meniere's disease ??? Microvascular angina (CMS/HCC) Past Surgical History: Procedure Laterality Date ??? BACK SURGERY 2017 lower back, 2018, 2019 ??? CHOLECYSTECTOMY Cholecystectomy ??? JOINT REPLACEMENT Hip replacement, L - 2013, R - 2014 ??? OTHER SURGICAL HISTORY 1999 Sectioning of left vesibular nerve ??? VESTIBULAR NERVE SECTION Left OB History No obstetric history on file. Allergies Allergen Reactions ??? Adhesive Rash and Blisters Surgical tape ??? Chlorhexidine Rash ??? Sulfa (Sulfonamide Antibiotics) Hives and Rash ??? Gabapentin Other (See comments) Retain water Med List Status: Nurse Complete Set By: Karlie Crum RN at 07/13/2020 11:14 AM Taking? Last Dose Start Date End Date Provider ALPRAZolam (XANAX) 0.25 mg tablet 07/12/2020 03/27/20 07/13/20 Darshana Toth MD Take 2 tablets (0.5 mg total) by mouth 2 (two) times a day as needed (dizziness) Patient taking differently: Take 0.5 mg by mouth nightly as needed ascorbic acid (ascorbic acid with indira hips) 500 mg tablet,chewable 07/13/2020 -- -- Emmanuel Briones MD atorvastatin (LIPITOR) 20 mg tablet 07/12/2020 07/29/18 -- Emmanuel Briones MD b complex vitamins tablet 07/13/2020 06/21/13 -- Tg Houston MD take 1 Tablet by Oral route every day Patient taking differently: Take 1 tablet by mouth every morning calcium acetate,phosphat bind, (PHOSLO) 667 mg capsule 07/13/2020 -- -- Emmanuel Briones MD cholecalciferol (VITAMIN D-3) 25 mcg (1,000 unit) tablet 07/13/2020 -- -- Emmanuel Briones MD coenzyme Q10 (CO Q-10) 100 mg capsule 07/13/2020 06/21/13 -- Tg Houston MD take 1 Capsule by Oral route once Patient taking differently: Take 100 mg by mouth every morning cyanocobalamin (Vitamin B-12) 100 mcg tablet 07/13/2020 -- -- Emmanuel Briones MD cyclobenzaprine (FLEXERIL) 10 mg tablet 07/12/2020 03/12/20 -- Emmanuel Briones MD diltiazem (TIAZAC) 180 mg 24 hr capsule 07/13/2020 06/15/12 -- Tg Houston MD take 1 capsule (180MG) by oral route every day Patient taking differently: Take 180 mg by mouth every morning DULoxetine DR (CYMBALTA) 30 mg capsule 07/13/2020 12/21/19 -- Emmanuel Briones MD Eliquis 5 mg tablet 07/13/2020 06/29/20 -- Emmanuel Briones MD fexofenadine (THELMA) 180 mg tablet Past Month -- -- Emmanuel Briones MD flecainide (TAMBOCOR) 100 mg tablet 07/13/2020 06/29/20 -- Emmanuel Briones MD fluticasone (FLONASE) 50 mcg/actuation nasal spray 07/12/2020 06/15/12 -- Tg Houston MD inhale 1 spray (50MCG) by intranasal route every day in each nostril Patient taking differently: Administer into each nostril nightly HYDROcodone-acetaminophen (NORCO) 5-325 mg per tablet 07/13/2020 06/19/20 -- Crissy Ramirez MD Take 1 tablet by mouth every 6 (six) hours as needed for pain magnesium citrate 100 mg tablet 07/13/2020 -- -- Emmanuel Briones MD montelukast (SINGULAIR) 10 mg tablet 07/12/2020 10/25/18 -- Emmanuel Briones MD omega-3 fatty acids-fish oil 300-1,000 mg capsule 07/13/2020 -- -- Emmanuel Briones MD potassium chloride ER 20 mEq CR tablet 07/13/2020 06/29/20 -- Emmanuel Briones MD triamterene-hydroCHLOROthiazide 37.5-25 mg per capsule 07/13/2020 11/17/19 -- Juan Carlos Jackson MD TAKE ONE CAPSULE BY MOUTH ONCE DAILY Patient taking differently: Take 1 tablet/capsule by mouth every morning Patient not taking: Current Outpatient Medications: ??? ALPRAZolam (XANAX) 0.25 mg tablet ??? ascorbic acid (ascorbic acid with indira hips) 500 mg tablet,chewable ??? atorvastatin (LIPITOR) 20 mg tablet ??? b complex vitamins tablet ??? calcium acetate,phosphat bind, (PHOSLO) 667 mg capsule ??? cholecalciferol (VITAMIN D-3) 25 mcg (1,000 unit) tablet ??? coenzyme Q10 (CO Q-10) 100 mg capsule ??? cyanocobalamin (Vitamin B-12) 100 mcg tablet ??? cyclobenzaprine (FLEXERIL) 10 mg tablet ??? diltiazem (TIAZAC) 180 mg 24 hr capsule ??? DULoxetine DR (CYMBALTA) 30 mg capsule ??? Eliquis 5 mg tablet ??? fexofenadine (THELMA) 180 mg tablet ??? flecainide (TAMBOCOR) 100 mg tablet ??? fluticasone (FLONASE) 50 mcg/actuation nasal spray ??? HYDROcodone-acetaminophen (NORCO) 5-325 mg per tablet ??? magnesium citrate 100 mg tablet ??? montelukast (SINGULAIR) 10 mg tablet ??? omega-3 fatty acids-fish oil 300-1,000 mg capsule ??? potassium chloride ER 20 mEq CR tablet ??? triamterene-hydroCHLOROthiazide 37.5-25 mg per capsule Social History Tobacco Use Smoking Status Never Smoker Smokeless Tobacco Never Used Substance and Sexual Activity Alcohol Use Yes ??? Alcohol/week: 5.0 standard drinks ??? Types: 5 Glasses of wine per week Substance and Sexual Activity Drug Use Not Currently Comment: cbd oil topically Family History Problem Relation Age of Onset ??? No Known Problems Mother ??? No Known Problems Father ??? [...] Neg Hx ??? Hyperlipidemia Neg Hx ??? Hypertension Neg Hx ??? Hypertrophic cardiomyopathy Neg Hx ??? Stroke Neg Hx ??? Sudden Cardiac Neg Hx PAT Physical Exam Airway Exam: Mallampati: III Cervical ROM: FROM TM distance: 3.5 Jaw ROM: full Cardiovascular Exam: Rate: regular Rhythm: regular Negative for Murmur Negative for peripheral edema Pulmonary Exam: LCTA EENT Exam: trachea midline Dental Exam: Appears intact Skin Exam: Skin is warm and dry. Turgor is normal. Abdominal exam: Abdomen is soft. Bowel sounds are present. Current state: Patient's current state is cooperative and interactive. Vitals: 07/13/20 1105 07/13/20 1108 BP: 126/77 118/80 Pulse: 78 SpO2: 96% Relevant diagnostics: ECG(s): 07/13/20 Sinus rhythm with 1st degree AV block Incomplete right BBB ST & T wave abnormality, consider inferolateral ischemia Abnormal ECG Echocardiogram(s): 06/28/20 OSH Summary: 1. Left ventricular systolic function is hyperdynamic, estimated at >70%. 2. There is mildly increased left ventricular wall thickness more prominent mid to apical LV but not clearly consistent with apical hypertrophic cardiomyopathy. 3. The left ventricular diastolic function is grade 1 diastolic dysfunction. 4. There is no aortic valve stenosis. 5. There is mild mitral valve regurgitation 6. There is trace tricuspid valve regurgitation. 7. Unable to estimate PA systolic pressure due to poor spectral resolution of tricuspid regurgitantjet velocity. 8. There is small pericardial effusion with fibrinous material within the pericardial space. Stress test(s): 06/28/20 OSH Lexiscan Stress Test Impression: 1. No definite ischemia or infarct 2. Normal left ventricular EF >70% Other: CXR 06/27/20 OSH Impression: Mild atelectasis in left lower lung zone PT: No results found for requested labs within last 720 hours. INR: No results found for requested labs within last 720 hours. APTT: No results found for requested labs within last 720 hours. Hgb A1C: No results found for requested labs within last 720 hours. CBC RBC: 07/10/2020: 4.59 M/cumm RDW: No results found for requested labs within last 720 hours. MCHC: 07/10/2020: 33.5 g/dL MCH: 07/10/2020: 29.0 pg MCV: 07/10/2020: 86.5 fL Hct: 07/10/2020: 39.7 % Hgb: 07/10/2020: 13.3 g/dL WBC: 07/10/2020: 6.2 K/cumm MPV: 07/10/2020: 9.8 fL Platelets: 07/10/2020: 269 K/cumm RDW CV: 07/10/2020: 13.8 % RDW Sd: 07/10/2020: 42.9 fL BMP Glucose: 06/15/2020: 91 mg/dL Calcium: 06/15/2020: 9.8 mg/dL Sodium: 06/15/2020: 140 mmol/L Potassium: 06/15/2020: 4.2 mmol/L CO2: 06/15/2020: 32 mmol/L Chloride: 06/15/2020: 103 mmol/L BUN: 06/15/2020: 17 mg/dL Creatinine: 06/15/2020: 0.85 mg/dL STOP-Bang Total Score: 2 Lorenza index score: 90 AD8 Dementia Score: 1 Short Blessed Total Score: 2 DOS Physical Exam Medical history, medications, and allergies reviewed. Attestation: With today's edits, I endorse the findings of the anesthesia pre-evaluation assessment dated: 07/13/2020. Airway Exam: Mallampati: I Cervical ROM: FROM TM distance: >4 Jaw ROM: full Cardiovascular Exam: Rate: bradycardia Rhythm: irregular Pulmonary Exam: LCTA, bilat EENT Exam: trachea midline Dental Exam: Appears intact Skin Exam: Skin is warm. Current state: Patient's current state is cooperative and interactive. Anesthesia Plan ASA 3 My patient is approved for the Anesthesia Controlled Medication protocol when under care of a NETWORK SYSTEMS ADMINISTRATOR Planned anesthesia: General Team communication plan: oral ET tube Invasive Monitors Planned: Invasive monitors planned: arterial line. Induction: Induction: intravenous. Postoperative Plan: Postoperative administration opioids intended. No postoperative mechanical ventilation intended. Patient's planned disposition post procedure is Floor. Planned trial extubation. Informed Consent: Discussed plan with NETWORK SYSTEMS ADMINISTRATOR. Anesthesia plan and risks discussed with patient. Consent and Attending signature: I and/or my designee have discussed the anesthesia plan, benefits, possible alternatives, parental presence at time of induction (if indicated), and clinically relevant risks that may include dental injury, unintentional awareness, and/or other complications. The patient and/or parent/legal guardian understand, and agree to proceed. All questions answered. CAL COMMUNICATION SPECIALIST CAL COMMUNICATION SPECIALIST CAL COMMUNICATION SPECIALIST CAL COMMUNICATION SPECIALIST CAL COMMUNICATION SPECIALIST documented in this encounter Plan of Treatment Not on file documented as of this encounter Procedures Procedure Name Priority Date/Time Associated Diagnosis Comments [place] AN PROCEDURE PLACEHOLDER Routine 07/25/2020 10:13 AM MEDICAL COMMUNICATION SPECIALIST W[place] AN ELECTIVE ENDOTRACHEAL AIRWAY Routine 07/25/2020 10:13 AM MEDICAL COMMUNICATION SPECIALIST documented in this encounter Results * WV AN ELECTIVE ENDOTRACHEAL AIRWAY, [place] AN PROCEDURE PLACEHOLDER (07/25/2020 10:13 AM MEDICAL COMMUNICATION SPECIALIST) Narrative Cr Felipe CRNA - 07/25/2020 10:13 AM MEDICAL COMMUNICATION SPECIALIST Cr Felipe CRNA ? 07/25/2020 10:16 AM Airway Patient location: OR Urgency: elective Date/time: 07/25/2020 8:49 AM Indications for airway management: anesthesia Difficult airway: no Staff: Supervising provider: Barbara Luis MD Placed by: NETWORK SYSTEMS ADMINISTRATOR: Cr Felipe CRNA Emergent airway documentation: Risks and benefits discussed: yes Consent obtained: yes Consent given by: patient Airway prep: Preoxygenated: yes Patient position: sniffing MILS maintained throughout: yes Mask difficulty assessment: 0 - not attempted Sedation level during airway: GA Final airway details: Final airway type: endotracheal airway Tube type: ETT ETT size: 7.0 mm Cuffed: yes Technique used for successful ETT placement: direct laryngoscopy Devices/Methods used in placement: intubating stylet Insertion site: oral Blade type: Liane Blade size: 3 Cormack-Lehane (direct): grade I - full view of glottis Cuff volume: 8 mL Cuff inflated with: air ETT to lips: 20 cm Placement verified by: auscultation and CO2 detection Airway secured with: prone view tape and tegaderm Number of attempts: 2 us Barbara Luis MD ANESTHESIA ORDERABLES Final R esult documented in this encounter Visit Diagnoses Not on filedocumented in this encounter Administered Medications Inactive Administered Medications - up to 3 most recent administrations Medication Order MAR Action Action Date Dose Rate Site ceFAZolin (ANCEF) injection Administer over 3 Minutes, As needed, Starting on Thu07/25/20 at 0946, Anesthesia Intra-op Given 07/25/2020 9:46 AM MEDICAL COMMUNICATION SPECIALIST 2,000 mg dexAMETHasone (DECADRON) 4 mg/mL injection Administer over 2 Minutes, As needed, Starting on Thu07/25/20 at 1117, Anesthesia Intra-op Given 07/25/2020 11:17 AM MEDICAL COMMUNICATION SPECIALIST 8 mg ePHEDrine injection intravenous, Administer over 5 Minutes, As needed, Starting on Thu07/25/20 at 0848, Anesthesia Intra-op Given 07/25/2020 1:33 PM MEDICAL COMMUNICATION SPECIALIST 5 mg Given 07/25/2020 12:53 PM MEDICAL COMMUNICATION SPECIALIST 5 mg Given 07/25/2020 11:49 AM MEDICAL COMMUNICATION SPECIALIST 5 mg fentaNYL (SUBLIMAZE) preservative free injection intravenous, As needed, Starting on Thu07/25/20 at 0843, Anesthesia Intra-op Given 07/25/2020 8:43 AM MEDICAL COMMUNICATION SPECIALIST 100 mc g glycopyrrolate (ROBINUL) injection intravenous, Administer over 1 Minutes, As needed, Starting on Thu07/25/20 at 0850, Anesthesia Intra-op Given 07/25/2020 11:36 AM MEDICAL COMMUNICATION SPECIALIST 0.2 mg Given 07/25/2020 11:00 AM MEDICAL COMMUNICATION SPECIALIST 0.2 mg Given 07/25/2020 9:54 AM MEDICAL COMMUNICATION SPECIALIST 0.2 mg Lactated Ringer's (LR) infusion 30 mL/hr, intravenous, Continuous, Starting on Thu07/25/20 at 0715, Pre-Op Rate/Dose Change 07/25/2020 1:25 PM MEDICAL COMMUNICATION SPECIALIST 50 mL/hr New Bag 07/25/2020 10:24 AM MEDICAL COMMUNICATION SPECIALIST Rate/Dose Verify 07/25/2020 8:26 AM MEDICAL COMMUNICATION SPECIALIST 30 mL/h r lidocaine PF (XYLOCAINE) 10 mg/mL (1 %) preservative free injection As needed, Starting on Thu07/25/20 at 0845, Anesthesia Intra-op Given 07/25/2020 8:45 AM MEDICAL COMMUNICATION SPECIALIST 60 mg methadone (DOLOPHINE) injection As needed, Starting on Thu07/25/20 at 0840, Anesthesia Intra-op Given 07/25/2020 9:47 AM MEDICAL COMMUNICATION SPECIALIST 5 mg Given 07/25/2020 8:40 AM MEDICAL COMMUNICATION SPECIALIST 5 mg midazolam (VERSED) 1 mg/mL preservative free injection intravenous, Administer over 2 Minutes, As needed, Starting on Thu07/25/20 at 0828, Anesthesia Intra-op Given 07/25/2020 8:28 AM MEDICAL COMMUNICATION SPECIALIST 2 mg ondansetron (ZOFRAN) injection intravenous, Administer over 2 Minutes, As needed, Starting on Thu07/25/20 at 1117, Anesthesia Intra-op Given 07/25/2020 11:17 AM MEDICAL COMMUNICATION SPECIALIST 4 mg phenylephrine (JOANN-SYNEPHRINE) 0.5 mg/5 mL (100 mcg/mL) in sodium chloride 0.9% (premix) intravenous, As needed, Starting on Thu07/25/20 at 0851, Anesthesia Intra-op Given 07/25/2020 11:49 AM MEDICAL COMMUNICATION SPECIALIST 50 mc g Given 07/25/2020 9:54 AM MEDICAL COMMUNICATION SPECIALIST 100 mcg Given 07/25/2020 9:20 AM MEDICAL COMMUNICATION SPECIALIST 200 mcg phenylephrine (JOANN-SYNEPHRINE) 5 mg/50 mL (100 mcg/mL) in sodium chloride 0.9% (premix) Continuous PRN, Starting on Thu07/25/20 at 0931, Anesthesia Intra-op Rate/Dose Change 07/25/2020 1:09 PM MEDICAL COMMUNICATION SPECIALIST 0.2 mcg/kg/min 9.37 mL/hr Rate/Dose Change 07/25/2020 1:05 PM MEDICAL COMMUNICATION SPECIALIST 0.5 mcg/kg/min 23. 4 mL/hr Rate/Dose Change 07/25/2020 12:03 PM MEDICAL COMMUNICATION SPECIALIST 0.7 mcg/kg/min 32 .8 mL/hr propofoL (DIPRIVAN) IV intravenous, As needed, Starting on Thu07/25/20 at 0845, Anesthesia Intra-op Given 07/25/2020 8:45 AM MEDICAL COMMUNICATION SPECIALIST 120 mg propofoL (DIPRIVAN) IV intravenous, Continuous PRN, Starting on Thu07/25/20 at 0931, Anesthesia Intra-op Rate/Dose Change 07/25/2020 11:13 AM MEDICAL COMMUNICATION SPECIALIST 90 mcg/kg/min 42.17 mL/hr Rate/Dose Change 07/25/2020 10:33 AM MEDICAL COMMUNICATION SPECIALIST 100 mcg/kg/min 46 .86 mL/hr Rate/Dose Change 07/25/2020 10:22 AM MEDICAL COMMUNICATION SPECIALIST 110 mcg/kg/min 51 .55 mL/hr remifentaniL (ULTIVA) 2,500 mcg in sodium chloride 0.9% 50 mL (50 mcg/mL) infusion Continuous PRN, Starting on Thu07/25/20 at 0931, Anesthesia Intra-op Restarted 07/25/2020 11:53 AM MEDICAL COMMUNICATION SPECIALIST 0.03 mcg/kg/min 2.81 mL/hr Restarted 07/25/2020 11:20 AM MEDICAL COMMUNICATION SPECIALIST 0.03 mcg/kg/min 2.81 mL /hr Rate/Dose Change 07/25/2020 10:39 AM MEDICAL COMMUNICATION SPECIALIST 0.05 mcg/kg/min 4 .69 mL/hr sodium chloride 0.9% infusion Continuous PRN, Starting on Thu07/25/20 at 0850, Anesthesia Intra-op New Bag 07/25/2020 8:50 AM MEDICAL COMMUNICATION SPECIALIST sodium chloride 0.9% infusion Continuous PRN, Starting on Thu07/25/20 at 0931, Anesthesia Intra-op New Bag 07/25/2020 9:31 AM MEDICAL COMMUNICATION SPECIALIST 50 mL/hr succinylcholine (ANECTINE) injection intravenous, As needed, Starting on Thu07/25/20 at 0845, Anesthesia Intra-op Given 07/25/2020 8:45 AM MEDICAL COMMUNICATION SPECIALIST 70 mg tranexamic acid (CYKLOKAPRON) 1,000 mg in sodium chloride 0.9% 100 mL (10 mg/mL) infusion Continuous PRN, Starting on Thu07/25/20 at 0950, Anesthesia Intra-op New Bag 07/25/2020 9:50 AM MEDICAL COMMUNICATION SPECIALIST 5 mg/kg/hr 39.1 mL/hr tranexamic acid (CYKLOKAPRON) 1,000 mg/10 mL (100 mg/mL) solution intravenous, As needed, Starting on Thu07/25/20 at 0940, Anesthesia Intra-op Given 07/25/2020 9:40 AM MEDICAL COMMUNICATION SPECIALIST 1,560 mg vancomycin 1,000 mg/200 mL in dextrose 5% (premix) 1,000 mg 1,000 mg, intravenous, Administer over 60 Minutes, Once, On Thu07/25/20 at 0715, For 1 dose, Pre-Op, Administer within 120 minutes of incision., Indications: Prophylaxis, SurgicalIndications:Prophylaxi s, Surgical Given 07/25/2020 8:55 AM MEDICAL COMMUNICATION SPECIALIST 1,000 mg documented in this encounter Care Teams Database Reporting Consultant Relationship Specialty Start Date End Date Enmanuel Gan MD [address] [facility] [address] [place] [address] PCP - General Internal Medicine 04/26/20 Tg Houston MD [address] [facility] [address] [place] [address] Consulting Physician Cardiology 07/18/20 documented as of this encounter
--- OUTSIDE RECORDS SUMMARY | 2024-07-12 08:54 | XMS_ITS | Encounter Summary ---
Author Organization [facility] Healthcare Address [address] [place] [address] Care Team Providers Care Sheet Sorter Name Role Phone Enmanuel Gan MD Primary Care Provider [phone] Tg Houston MD Unavailable [phone] Karlie Hernandez RN Unavailable Reason for Visit * Reason Comments Chart Review Encounter Details Date Type Department Care Team (Late st Contact Info) Description 07/30/2020 SHOP/CHAP Initial Eligibility Review [facility]NAGEMENT [address] [place] [address] Karlie Hernandez, RN [address] [facility] [address] [place] [address] Social History Tobacco Use Types [...] week 07/30/2020 How often do you attend [facility] or religion services? 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 Gender Identity Not on file Sexual Orientation Lesbian 05/24/2019 9: 06 AM CDT documented as of this encounter Plan of Treatment Not on file documented as of this encounter Visit Diagnoses Not on filedocumented in this encounter Care Teams Sheet Sorter Relationship Specialty Start Date End Date Enmanuel Gan MD [address] [place] [address] PCP - General Internal Medicine 04/26/20 Tg Houston MD [address] [place] [address] Consulting Physician Cardiology 07/18/20 Karlie Hernandez, RN [address] [facility] [address] [place] [address] SHOP Outpatient Special Effects Technician 07/30/20 08/27/20 documented as of this encounter
--- OUTSIDE RECORDS SUMMARY | 2024-07-12 08:54 | XMS_ITS | Encounter Summary ---
Author Organization [facility] Address [address] [place] [address] Phone Care Team Providers Care Sack Lifter Name Role Phone Enmanuel Gan MD Primary Care Provider Tg [place] MD Unavailable Karlie Hernandez RN Unavailable [phone] Encounter Details Date Type Department Care Team (Late st Contact Info) Description 08/08/2020 Telephone [facility] Orthopaedic Surgery [address] [facility] 6th [place] [address] [place] [address] Jeremy Michelle MD [address] [facility] [address] [place] [address] Social History Tobacco Use Types Packs/Day Years [...] 07/30/2020 How often do you attend [facility] or religion services? Never 07/30/2020 Do [...] file Legal Sex Female 9:09 PM MEDICAL TRANSCRIPTION EDITOR Gender Identity Not on file Sexual Orientation Lesbian 05/24/2019 9: 06 AM CDT documented as of this encounter Miscellaneous Notes * Telephone Encounter - Cyndie Byers RN - 08/08/2020 9:26 AM MEDICAL TRANSCRIPTION EDITOR Discussed with patient's pain regimen. She states her pain is not tolerable on 1 oxycodone and asked for other alteratives. Instructed patient is okay to take 2 pills 1-2 a day but not every 4 hours.This was discussed with Dr. Michelle and rafa. Patient instructed to max her dose of Tylenol to 3000mg per day and explained the regimen for her to understand. Encouraged use of ice and rest. Patient verbalized understanding. CAL TRANSCRIPTION EDITOR documented in this encounter Plan of Treatment Not on file documented as of this encounter Visit Diagnoses Not on filedocumented in this encounter Care Teams Sack Lifter Relationship Specialty Start Date End Date Enmanuel Gan MD [address] [place] [address] PCP - General Internal Medicine 04/26/20 Tg Houston MD [address] [facility] [address] [place], [place] [id number] Consulting Physician Cardiology 07/18/20 Karlie Hernandez, RN [address] [facility] [address] [place] [address] SHOP Outpatient General Labor 07/30/20 08/27/20 documented as of this encounter
--- OUTSIDE RECORDS SUMMARY | 2024-07-12 08:54 | XMS_ITS | Encounter Summary ---
Author Organization [facility] Address [address] [place] [address] Phone Care Team Providers Care Auger Machine Offbearer Name Role Phone nEmanuel Gan MD Primary Care Provider [phone] Tg [place] MD Unavailable [phone] Reason for Visit * ENT (Routine) - Closed Specialty Diagnoses / Procedures Referred By Contac t Referred To Contact Diagnoses Sensory hearing loss, bilateral Procedures Audiogram Juan Carlos Jackson MD Phone: tel: fax: [facility] (All Locations) Referral ID Status Reason Start Date Expiration Date Visits Re quested Visits Authorized [id number] Closed 08/29/2019 03/09/2021 6 6 Encounter Details Date Type Department Care Team (Latest Contact Info) Description 07/23/2020 10:30 AM SENIOR AUDIT MANAGER Procedure visit [facility] Otolaryngology [address] [facility] 11th [place] [address] [place] [id number] Zee Garcia Au.D. [address] [place] [address] Sensorineural hearing loss (SNHL), bilateral (Primary Dx) Social History Tobacco Use Types Packs/Day Years Used Date Smoking Tobacco: Never Smokeless Tobacco: Never Alcohol Use Standard Drinks/Week Comments Yes 5 (1 standard drink = 0.6 oz pur e alcohol) Comments No Sex and Gender Information Value Date Recorded Sex Assigned at Not on file Legal Sex Female 9:09 PM SENIOR AUDIT MANAGER Gender Identity Not on file Sexual Orientation Lesbian 05/24/2019 9: 06 AM CDT documented as of this encounter Procedure Notes * Zee Garcia Au.D. - 07/23/2020 10:30 AM CST Procedures Sharon walked in today with Sunita. She has some questions regarding her tinnitus. Patient Reported: -In the last 2 days she has noticed that when she bends over her tinnitus starts up. *Dizziness was not reported. -Sounds like a siren in her ear. *Does not persist, and during her normal daily routine it doesn't happen. *Occurs only when she bends over, which Sunita feels she shouldn't be doing anyway. *She was wondering if she should be concerned. -She has not noticed this before, she could bend over without incident prior to 2 days ago. -Her back surgery is this Thursday. Discussion: Tinnitus trigger that she is aware of: Weather. *Also discussed stress as a trigger. *Bending over can also cause pressure differences in the ear as well Upcoming hospital stay and care for her K2 *Selina will keep the device with her isabel. if Sharon is sleeping etc. *When Sharon is awake and alert she will keep K2 on, could do some exercises if she is up to it. *Advised Sharon that if she is unable to wear the K2 for several days to be sure and reduce the volume when she first puts it on. Impressions/Plan: Patient to monitor tinnitus, although due to her back surgery she will have restrictions Continue with AT exercise when she is able. Continue with programming and AT after back surgery. OR AUDIT MANAGER documented in this encounter Plan of Treatment Not on file documented as of this encounter Visit Diagnoses Diagnosis Sensorineural hearing loss (SNHL), bilateral- Primary documented in this encounter Care Teams Auger Machine Offbearer Relationship Specialty Start Date End Date Enmanuel Gan MD [address] [place] [address] PCP - General Internal Medicine 04/26/20 Tg [place] MD [address] [place] [address] Consulting Physician Cardiology 07/18/20 documented as of this encounter
--- OUTSIDE RECORDS SUMMARY | 2024-07-12 08:54 | XMS_ITS | Encounter Summary ---
Author Organization [facility] Healthcare Address [address] [place] [address] Care Team Providers Care Nonfarm Animal Caretaker Name Role Phone Enmanuel Gan MD Primary Care Provider [phone] Tg Houston MD Unavailable [phone] Encounter Details Date Type Department Care Team (Late st Contact Info) Description 07/25/2020 8:30 AM PRISON KEEPER - 07/25/2020 2:15 PM PRISON KEEPER Surgery [facility] Operating Room [address] [place] [address] Jeremy Michelle MD [address] [facility] [address] Revision Posterior spinal instrumented fusion T12-L4, exploration of fusion, removal of hardware L2-L4, L1/2 laminectomy with foraminotomies at L1/2, L2/3, L3/4, autograft, allograft, bone morphogenetic protein, spinal cord monitoring. Surgery Details Date/Time Status Location OR Service Patient Class Case Class Case Type Trauma Case? 07/25/2020 8:30 AM Posted [facility] OR POD 5 [phone] Orthopaedics Surgery Admit Time Sensitive - 1 Week Panel 1 Procedure LRB Anes Op Region Wound Class Comments Revision Posterior spinal instrumented fusion T12-L4, exploration of fusion, removal of hardware L2-L4, L1/2 laminectomy with foraminotomies at L1/2, L2/3, L3/4, autograft, allograft, bone morphogenetic protein, spinal cord monitoring. N/A General Spine Thoracic Class I - Clean REMOVAL HARDWARE SPINE N/A General Spine Thoracic Cl ass I - Clean BONE GRAFT WITH BONE MORPHOGENIC PROTEIN N/A Choice Class I - Clean SPINAL CORD MONITORING N/A Choice Cl ass II - Clean Contaminated Surgeon Surgeon Role Service Panel Tan Mosley MD Fellow Orthopaedics 1 Jeremy Michelle MD Primary Orthopaedic s 1 Special Needs Cut to close:480, bone scalpel, SCM, fluoro,O-arm, TXA, ultrasound, Flat plate, Greg Frame, GW, PRBCS _2_units, local autograft, allograft chips, 1 lrge unopened BMP Kit, DePuy Expedium, Revision (Dr Henry, 2019) Globus Creo (rep brining removal tool s) documented in this encounter Social History Tobacco Use Types Packs/Day Years Used Date Smoking Tobacco: Never Smokeless Tobacco: Never Alcohol Use Standard Drinks/Week Comments Yes 5 (1 standard drink = 0.6 oz pur e alcohol) Comments No Sex and Gender Information Value Date Recorded Sex Assigned at Not on file Legal Sex Female 9:09 PM PRISON KEEPER Gender Identity Not on file Sexual Orientation Lesbian 05/24/2019 9: 06 AM CDT documented as of this encounter Last Filed Vital Signs Vital Sign Reading Time Taken Comments Blood Pressure 100/54 07/25/2020 2:10 PM PRISON KEEPER Pulse 69 07/25/2020 2:10 PM PRISON KEEPER Temperature 36 ??C (96.8 ??F) 07/25/2020 1:30 PM PRISON KEEPER Respiratory Rate 11 07/25/2020 2:10 PM PRISON KEEPER Oxygen Saturation 100% 07/25/2020 2:10 PM PRISON KEEPER Inhaled Oxygen Concentration - - Weight - - Height - - Body Mass Index - - documented in this encounter Discharge Summaries * Jayda Hankins MD - 07/29/2020 12:23 PM CST Inpatient Discharge Summary BRIEF OVERVIEW Admitting Provider: Jeremy Michelle MD Discharge Provider: Jeremy Michelle MD Primary Care Physician at Discharge: Enmanuel Gan MD [phone] Admission Date: 07/25/2020 Discharge Date: 07/29/2020 Admission Location: [facility] Problems/Diagnoses: Principal Problem: Acute low back pain Active Problems: Dyslipidemia Essential hypertension Major depressive disorder, single episode, moderate (CMS/HCC) Resolved Problems: No resolved hospital problems. DETAILS OF HOSPITAL STAY Presenting Problem/History of Present Illness: Patient presented to clinic with radicular back pain in the setting of prior lumbar surgeries with an L2-L3 pseudarthrosis in setting of previous L2- L4 posterior spinal instrumented fusion. Risks, benefits and expected postoperative recovery course of revision posterior lumbar fusion with hardwareremoval, exploration of L2-L3 nonunion, decompression and revision posterior instrumented spinal fusion from L1-L4 was reviewed. She presented for elective procedure on date of admission Hospital Course: Patient presented to for admission on 07/25/2020 and underwent the above elective procedure. Procedure was complicated by a dural tear which was repaired primarily. She was maintained on flat bed rest for 24 hours due to the dural repair and progressed through head of bed protocol without issue, a p ostoperative drain was maintained to gravity only. She did not experience any headache or symptoms consistent with a dural leak. She received prophylactic antibiotics for 24 hours. Bedoya was removed on postoperative day 2 and she was able to void without difficulty. She was able to tolerate an oraldiet with some nausea resolved with medication. She was able to move her bowels prior to discharge.On postoperative day 2, subcutaneous heparin was started for VTE prophylaxis. She worked with Physical and Occupational therapy to mobilize about the unit. She was able to ambulate with assistive device. Postoperative drain was removed without difficulty. Postoperative upright imaging was obtained and reviewed prior to discharge. She was deemed stable for home discharge on 07/29/2020 Active Issues Requiring Follow-up: None Test Results Pending at Discharge: none Operative Procedures Performed: Procedure(s): Revision Posterior spinal instrumented fusion T12-L4, exploration of fusion, removal of hardware L2-L4, L1/2 laminectomy with foraminotomies at L1/2, L2/3, L3/4, autograft, allograft, bone morphogenetic protein, spinal cord monitoring. REMOVAL HARDWARE SPINE BONE GRAFT WITH BONE MORPHOGENIC PROTEIN SPINAL CORD MONITORING Other Procedures: None Pertinent Test Results: None Discharge Details Physical Exam at Discharge: Discharge Condition: stable Pulse: 68 Resp: 16 BP: (!) 109/43 Temp: 36.6 ??C (97.9 ??F) Weight: 78 kg (172 lb) Pertinent Exam Findings at Discharge: Full strength motor in bilateral upper and lower extremities:Sensation intact to light touch for all dermatomes in bilateral upper and lower extremities, no hyper reflexia on exam, incision with small superior seroma and palpable fluid wave, no erythema or drainage from incision Discharge Disposition: Code Status at Discharge: Full Discharge Instructions: Activity Instructions Discharge Activity: Driving [...] other kind of exercise Discharge Activity: Stairs -You may climb stairs now Discharge activity: Activity restrictions -Do not go back to work until your surgeon says it's OK. -Do not jog, run or bike until your surgeon says it's OK. -Do not do any dental nurse that cause you to twist, push or pull; such as laundry, vacuuming grocery shopping and childcare. -Do not flex (bring your head to your chest) or extend (lift your chin up high and away from your chest) unless your surgeon says it's OK. -Slowly work up to your normal activities at home with the exceptions as already noted. Discharge activity: Out of bed to chair -Out of bed to chair at least 3 times every day Other Instructions Call 911 if you have chest pain or shortness of breath Call provider for any of the following: -Temperature greater than 101 degrees F or 38.5 C -You have any drainage from your incision -The skin around your incision is swollen and/or red -The incision starts to separate and open up -Pain medicine, rest or warm packs are not helping your pain -You are having new numbness or weakness -You begin feeling very weak -You are having numbness in your pelvic area -You are not able to control your bladder -You lose control of your bowels -You have constipation for longer than 5 days -You are having a hard time swallowing liquids -You have nausea or vomiting that will not go away -You have any swelling, warm to touch or painful areas in your legs. This needs IMMEDIATE attention. Care Instructions: Incisions When you leave the hospital your incision can be open to the air. You may apply a clean dry dressing daily if you want but it is not necessary. You should look at your incision daily checking for swelling, redness, warmth or drainage. It is normal for the skin edges to look a little reddened while healing. It is normal for your incision to itch when it's healing. Please call the office if you are concerned about your incision. Do not use lotions or creams on your incision. Do not place heat directly on your incision Care Instructions: No tub baths -No tub baths, whirlpools or swimming until your doctor says it's ok. Care Instructions: Shower You may shower when you go home. Your incision and some of the surrounding skin should be covered with Glad press and seal to keep the incision dry while showering. Remove the Glad press and seal once you are done showering. Pat the skin and incision to ensure that it is dry. You may shower withoutGlad press and seal on your incision two weeks from your surgery date. Do NOT submerge your incision (in a tub, hot tub, pool, [place], river, or any body of water) until it is healed and your surgeon says it's ok. Do NOT use lotion, oil, alcohol or cream on your incision. Care Instructions: Surgical Dressing -Keep wound clean and dry at all times. Use a waterproof dressing while showering. Incentive Spirometry Use your incentive spirometer 10 times every hour while awake for one week. Medication instructions You are being discharged with oxycodone for pain. This medicine needs to last you at least one weekand no refills can be called in. Your surgeon expects you to be off pain medicine by about 1-2 weeks after surgery, sooner if possible. Narcotic pain medication can be very addictive; please use it with caution. New laws regarding narcotics and your insurance influence how many pills you are given.Do not resume any of your home medications especially aspirin, coumadin, plavix or any other blood thinner until two weeks postoperatively. You have been discharged with lovenox for blood clot prophylaxis: take this daily for 2 weeks, thenrestart your home Eliquis dose. Do NOT restart home Eliquis dose before 2 weeks or while taking lovenox Remove brace daily to check skin to prevent skin breakdown If you were given a brace you should wear it until at least your first follow up visit and discuss it with your surgeon. Special Instructions You should not smoke or use nicotine based e-cigarettes or any nicotine based products. You should not be around second hand smoke. Smoking decreases blood flow to your spinal cord, slows the healingprocess, and increases your risk of infection. Special Instructions You may take a multivitamin daily. You [...] or as your hospital staff before leaving. Discharge Medications: Current Medications TAKE these medications acetaminophen 500 mg capsule Take 2 capsules (1,000 mg total) by mouth every 6 (six) hours as needed for pain For: pain ALPRAZolam 0.25 mg tablet Take 2 tablets (0.5 mg total) by mouth 2 (two) times a day as needed (dizziness) Commonly known as: XANAX ascorbic acid with indira hips 500 mg tablet,chewable Take 500 mg by mouth every morning For: inadequate vitamin C Generic drug: ascorbic acid atorvastatin 20 mg tablet Take 20 mg by mouth nightly For: excessive fat in the blood Commonly known as: LIPITOR baclofen 10 mg tablet Take 1 tablet (10 mg total) by mouth every 8 (eight) hours For: Muscle spasm Commonly known as: LIORESAL calcium acetate(phosphat bind) 667 mg capsule Take 1,334 mg by mouth every morning For: supplement Commonly known as: PHOSLO cholecalciferol 25 mcg (1,000 unit) tablet Take 1,000 Units by mouth every morning For: low vitamin D levels Commonly known as: VITAMIN D-3 Co Q-10 100 mg capsule take 1 Capsule by Oral route once Generic drug: coenzyme Q10 cyanocobalamin 100 mcg tablet Take 100 mcg by mouth every morning For: prevention of vitamin B12 deficiency Commonly known as: Vitamin B-12 diltiazem 180 mg 24 hr capsule Take 1 capsule (180 mg total) by mouth daily Commonly known as: TIAZAC DULoxetine DR 30 mg capsule Take 60 mg by mouth every morning For: anxiousness associated with depression Commonly known as: CYMBALTA enoxaparin 40 mg/0.4 mL syringe Inject 0.4 mL (40 mg total) under the skin daily for 14 days After 14 days, restart home Eliquis dose Commonly known as: LOVENOX fexofenadine 180 mg tablet Take 180 mg by mouth daily as needed For: seasonal runny nose Commonly known as: THELMA flecainide 100 mg tablet Take 100 mg by mouth 2 (two) times a day Commonly known as: TAMBOCOR fluticasone propionate 50 mcg/actuation nasal spray inhale 1 spray (50MCG) by intranasal route every day in each nostril Commonly known as: FLONASE magnesium citrate 100 mg tablet Take 1 tablet by mouth every morning For: low amount of magnesium in the blood montelukast 10 mg tablet Take 10 mg by mouth nightly For: seasonal runny nose Commonly known as: SINGULAIR omega-3 fatty acids-fish oil 300-1,000 mg capsule Take 2 g by mouth every morning For: supplement ondansetron 4 mg tablet Take 1 tablet (4 mg total) by mouth every 8 (eight) hours as needed for nausea or vomiting for up to 7 days For: prevent nausea and vomiting after surgery Commonly known as: ZOFRAN oxyCODONE 5 mg immediate release tablet Take 1 tablet (5 mg total) by mouth every 4 (four) hours as needed for pain for up to 7 days For: pain Commonly known as: ROXICODONE potassium chloride ER 20 mEq CR tablet Take 40 mEq by mouth every morning Commonly known as: KLOR-CON senna-docusate 8.6-50 mg Take 2 tablets by mouth 2 (two) times a day for 14 days For: constipation Commonly known as: PERICOLACE triamterene-hydroCHLOROthiazide 37.5-25 mg per tablet/capsule TAKE ONE CAPSULE BY MOUTH ONCE DAILY Commonly known as: MAXZIDE,DYAZIDE vitamin b complex tablet take 1 Tablet by Oral route every day Outpatient Follow-Up: Future Appointments Date Time Provider Department Center 08/10/2020 9:30 AM Newton Pierson, STAFF PSYCHOLOGIST [facility] 11[facility] OY 08/10/2020 1:00 PM Jasmin Winter, PhD OY [facility] 11A OY 08/14/2020 2:30 PM Jeremy Michelle MD SPIN CAM12A OS 09/04/2020 2:00 PM Jeremy Michelle MD SPIN CAM12A OS 10/08/2020 9:30 AM Jasmin Winter, PhD OY [facility] 11A OY 01/07/2021 9:30 AM Jasmin Winter, PhD OY CAM 11A OY 01/07/2021 11:00 AM Darshana Toth MD CLN CAM 11A OY 01/14/2021 1:45 PM Tg Houston MD BJmanuel [facility] 04/15/2021 2:15 PM Iwona Herron Au.D. AUD CAM 11A OY 04/15/2021 3:00 PM Darshana Toth MD CLN CAM 11A OY Cosigned by Jeremy Michelle MD at 08/01/2020 9:56 AM PRISON KEEPER ON KEEPER ON KEEPER documented in this encounter Discharge Instructions * Discharge Instructions* Jayda Hankins MD - 07/29/2020 12:23 PM PRISON KEEPER POSTOPERATIVE INSTRUCTIONS FOR POSTERIOR SPINE FUSION 1. [...] above your head. Do not do any dental nurse like laundry or vacuuming that may cause [...] during normal business hours (M-F 8-4:30) at [phone] or after hours at the exchange at [phone] or [phone]. 7. MEDICATIONS: Adjustments may have been made [...] your bones from healing properly after surgery. You have been discharged with lovenox injections for blood clot prophylaxis: take this medication daily for 14 days, then restart your home dose Eliquis. Do NOT restart Eliquis while taking lovenox. 8. APPOINTMENTS: You will come back to see your surgeon, your surgeons nurse, or an SENIOR TECHNICAL RECRUITER approximately six weeks after your surgery. Please call [phone] if you need to change an appointment. ON KEEPER documented in this encounter Medications at Time of Discharge atorvastatin (LIPITOR) 20 mg tabletIndication s:hyperlipidemia Take 1 tablet (20 mg total) by mouth nightly 07/29/2018 ascorbic acid (ascorbic acid with indira hips) [...] total) by mouth every morning 12/21/2019 4 fexofenadine (THELMA) 180 mg tabletIndication s:Seasonal Allergic Rhinitis Take 180 mg by mouth daily as needed 1 fluticasone (FLONASE) 50 mcg/actuation nasal spray [...] total) by mouth every morning 06/29/2020 4 triamterene-hydr oCHLOROthiazide 37.5-25 mg per capsule TAKE ONE CAPSULE BY MOUTH ONCE DAILY 90 capsule 3 11/17/2019 3 acetaminophen 500 mg capsuleIndicatio ns:Pain Take 2 capsules (1,000 mg total) by mouth every 6 (six) hours as needed for pain 30 tablet 1 07/29/2020 1 enoxaparin (LOVENOX) 40 mg/0.4 mL syringe Inject 0.4 mL (40 mg total) under the skin daily for 14 days After 14 days, restart home Eliquis dose 5.6 mL 07/29/2020 1 ondansetron (ZOFRAN) 4 mg tabletIndication s:Prevention of Post-Operative Nausea and Vomiting Take 1 tablet (4 mg total) by mouth every 8 (eight) hours as needed for nausea or vomiting for up to 7 days 20 tablet 07/29/2020 1 ALPRAZolam (XANAX) 0.25 mg tablet Take 2 tablets (0.5 mg total) by mouth 2 (two) times a day as needed (dizziness) 60 tablet 1 03/27/2020 1 baclofen (LIORESAL) 10 mg tabletIndication s:Muscle spasm Take 1 tablet (10 mg total) by mouth every 8 (eight) hours 90 tablet 07/29/2020 1 diltiazem (TIAZAC) 180 mg 24 hr capsule Take 1 capsule (180 mg total) by mouth daily 90 capsule 3 2020 1 flecainide (TAMBOCOR) 100 mg tablet Take 100 mg by mouth 2 (two) times a day 06/29/2020 1 oxyCODONE (ROXICODONE) 5 mg immediate release tabletIndication s:Pain Take 1 tablet (5 mg total) by mouth every 4 (four) hours as needed for pain for up to 7 days 35 tablet 07/29/2020 1 senna-docusate (PERICOLACE) 8.6-50 mgIndications:co nstipation Take 2 tablets by mouth 2 (two) times a day for 14 days 56 tablet 07/29/2020 4 documented as of this encounter Ordered Prescriptions Prescription Sig Dispense Quantity Refills Last Filled Start Date End Date enoxaparin (LOVENOX) 40 mg/0.4 mL syringe Inject 0.4 mL (40 mg total) under the skin daily for 14 days After 14 days, restart home Eliquis dose 5.6 mL 07/29/2020 1 senna-docusate (PERICOLACE) 8.6-50 mgIndications:cons tipation Take 2 tablets by mouth 2 (two) times a day for 14 days 56 tablet 07/29/2020 4 oxyCODONE (ROXICODONE) 5 mg immediate release tabletIndications: Pain Take 1 tablet (5 mg total) by mouth every 4 (four) hours as needed for pain for up to 7 days 35 tablet 07/29/2020 1 ondansetron (ZOFRAN) 4 mg tabletIndications: Prevention of Post-Operative Nausea and Vomiting Take 1 tablet (4 mg total) by mouth every 8 (eight) hours as needed for nausea or vomiting for up to 7 days 20 tablet 07/29/2020 1 baclofen (LIORESAL) 10 mg tabletIndications: Muscle spasm Take 1 tablet (10 mg total) by mouth every 8 (eight) hours 90 tablet 07/29/2020 1 acetaminophen 500 mg capsuleIndications :Pain Take 2 capsules (1,000 mg total) by mouth every 6 (six) hours as needed for pain 30 tablet 1 07/29/2020 1 documented in this encounter Discharge Disposition Disposition Code Departure Means Destination Discharge to home or self care documented in this encounter Progress Notes * Tootie Howell RN - 07/29/2020 2:57 PM CST 07/29/20 6067 Discharge Summary Chart reviewed For Medical Necessity Does patient have a planned readmission to hospital planned? No Discharge Disposition Home Equipment/Provider Needs No Home Needs Identified Discharge Additional Assistance Does the patient need discharge transport arranged? No Post Discharge Care Provider Post Discharge Care Plan Next level of care provider has access to complete EMR Plan to discharge home with spouse. Pt. spouse will transport patient home. Follow-up appointment in place. Patient has a peripheral line which will be removed upon discharge. Discharged prescriptions [facility]. No additional needs identified and pt. Agrees with the plan. ON KEEPER * Tootie Howell RN - 07/29/2020 2:55 PM CST CM Initial Assessment Interview Note Information Obtained From: Patient (07/29/20 2392) Admission Source: Non Health Care Facility Point of Origin Impression: 75 y/o female admitted for Revision Posterior spinal instrumented fusion T12-L4, exploration of fusion, removal of hardware L2-L4, L1/2 laminectomy with foraminotomies at L1/2, L2/3, L3/4, autograft, allograft, bone morphogenetic protein, spinal cord monitoring. Plan Includes: Safe discharge home with spouse Primary Source of Transportation: Patient spouse will provide transportation home when discharged. Health Insurance Coverage: [facility] [employer] Prescription Coverage: Yes Pharmacy: [facility] Primary Care Provider: Enmanuel Gan MD Prior to Admission: Primary Caregiver: Self Support System: Spouse/Significant Other Support system contact info (name, phone, availablity): Sunita Miranda (spouse) [phone] Home Care Services: No Durable Medical Equipment: None Living Arrangements: Spouse/significant other Type of Residence: Private residence Steps in home? : No steps inside or outside (07/29/201452) Potential discharge needs include: No needs identified Dialysis: Dialysis: No (07/29/201452) Behavioral Health Services: Behavioral Health Services: No (07/29/201452) Patient expects to be Discharged to: Private residence, (07/29/201452) Patient's Identified Problem/Goal Problem: Ensure acute medical [...] community resources. Plan includes: 1. Collaboration with patient, MD, direct care nurse, Patrol Captain, Nurse Coordinator and other members of the health care team to assure needed interventions completed. 2. Return patient to optimal level of self-care post discharge. 3. Stockholder will follow for Discharge Planning - interventions as needed 4. Anticipated level of care at discharge 5. Planned Discharge Disposition Based on a comprehensive family assessment, assistance with instrumental activities of daily livingafter discharge will be provided by patient Through the course of our work I determined that the spouse possesses the skill and ability to provide and monitor the care of the patient when she returns home. The spouse has the capacity to provide/monitor/arrange for the care of the patient. Finally, we determined that the spouse has the knowledge of available resources and that combining them with their existing resources will suffice to sustain and care for the patient when she returns home. The treatment team is aware of this information. All are in agreement with the aftercare plan. Tootie Howell RN ON KEEPER * Jayda Hankins MD - 07/29/2020 9:03 AM CST Orthopaedic Surgery Spine Progress Note July 29, 2020 9:03 AM 75 y.o. 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 S/p Revision PSF L1-L4, L1-4 laminectomies, dural repair 07/25 Interval Hx - intermittent nausea without emesis, Zofran effective - +BM following increased regimen - denies COUCH/SOB though complains of mental fog - pain controlled on current regimen, thigh pain likely related to intra-op positioning, no skin changes - PT/OT rec home - scoli XRs completed Objective - AFVSS - H/H .8 Exam Constitutional: Oriented to person, place, and time and well-developed, well- nourished, and in no distress. -- Dressing: clean dry and intact -- Incision: small superior incisional fluid wave, no drainage or erythema -- Motor: Muscle Strength Left Right Deltoid 5/5 5/5 Biceps 5/5 5/5 Triceps 5/5 5/5 Wrist extension 5/5 5/5 Wrist flexion 5/5 5/5 Classified Advertising Supervisor 5/5 5/5 Interosseous of hand 5/5 5/5 Iliopsoas 5/5 5/5 Hamstrings 5/5 5/5 Quadriceps 5/5 5/5 Tibialis anterior 5/5 5/5 Extensor hallicus longus 5/5 5/5 Gastrocsoleus complex 5/5 5/5 Sensation Left upper extremity: sensation grossly intact to light touch in C5 to T1 dermatomes. Right upper extremity: sensation grossly intact to light touch in C5 to T1 dermatomes. Left lower extremity: sensation grossly intact to light touch in L2 to S1 dermatomes. Right lower extremity: sensation grossly intact to light touch in L2 to S1 dermatomes. Vascular: Bilateral Upper Extremity: fingers WWP Bilateral Lower Extremity: toes WWP Long-tract signs: -no Carter's -no Clonus Edited by: Jayda Hankins MD at 07/28/2020 1151 --Drains HVac Imaging Post op Scoliosis XRs completed: instrumentation in situ w expected post- operative changes A/P 75 y.o. 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 S/p Revision PSF L1-L4, L1-4 laminectomies, dural repair 07/25 Plan Daily AM labs Drains: HVx1 to gravity, will maintain today Bedoya: removed, voiding Abx: Vanc/ancef X 24 hours - completed DVT ppx: SCDs, SQH WB: Spinal fusion precautions Pain control: , oxycodone prn, dilaudid PRN, tylenol, baclofen, zanaflex prn Bowel: Pericolace Gallo, Dulcolax suppository gallo, Miralax PRN Diet: regular Home meds: Flexeril, Duloxetine, Eliquis (on hold), Flecainide (restarted), Xanax Imaging; completed PT/OT: rec home Dispo: pending drain removal - Please call ortho spine if patient develops any concerning changes to their neurologic exam such as new weakness or loss of bowel/bladder function ?? During normal business hours - If you know the resident's name on the appropriate orthopaedic surgery team, please use [employer] [employer] to page resident directly. ?? If you have questions overnight or can't reach the appropriate resident, please call the Orthopaedic Surgery Consult Pager [phone] to have your questions answered or be directed to the correct Orthopaedic Surgery resident. Jayda Lopez MD Orthopaedic Surgery Resident, PGY-5 ON KEEPER * Belkis Hernández MD - 07/29/2020 4:49 AM CST Called to bedside to evaluate patient is surgical wounds, giving concern for fluctuance/hematoma onnursing exam. On my exam, there was no evidence of hematoma, there was some scant fluctuance at thesuperior aspect of the surgical incision, without expressible drainage. Will continue to monitor. Yanet Hernández MD Orthopedic Surgery PGY-8 ON KEEPER * Jeremy Michelle MD - 07/28/2020 7:02 PM CST Patient doing well POD3 from revision L1-4 PSIF with decompression. Comfortable. Doing great overall. Some mild n tonight without v. No headaches. Has been ambulating well with PT. Flatus+ PO+ AOx3 and NVI BL UE and LE C5-T1 and L2-S1. Drain with approp outpt Upright images reviewed. No sign of complication. Plan Doing well overall - OT for patient per patient request with help ADLs - appreciate OT in house - PT UOB No blts Likely drain out and dc Thursday vs thursday Jeremy Michelle MD PhD Attending Spine Surgeon Senior Technical Support Analyst of Orthopaedic and Neurological Surgery [facility] ON KEEPER * Jayda Hankins MD - 07/28/2020 10:47 AM CST Orthopaedic Surgery Spine Progress Note July 28, 2020 10:49 AM 75 y.o. 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 S/p Revision PSF L1-L4, L1-4 laminectomies, dural repair 07/25 Interval Hx - doing well, denies SOB/COUCH/vision change -emesis x2 yesterday, trying bland breakfast this AM -passing flatus, no BM yet - ambulation in room w PT - Pain controlled on PO Objective - AFVSS on RA - H/H 10.5/31.9 Exam Constitutional: Oriented to person, place, and time and well-developed, well- nourished, and in no distress. -- Dressing: dressing c/d/i, changed this AM -- Incision: no drainage -- Motor: Muscle Strength Left Right Deltoid 5/5 5/5 Biceps 5/5 5/5 Triceps 5/5 5/5 Wrist extension 5/5 5/5 Wrist flexion 5/5 5/5 Classified Advertising Supervisor 5/5 5/5 Interosseous of hand 5/5 5/5 Iliopsoas 5/5 5/5 Hamstrings 5/5 5/5 Quadriceps 5/5 5/5 Tibialis anterior 5/5 5/5 Extensor hallicus longus 5/5 5/5 Gastrocsoleus complex 5/5 5/5 Sensation Left upper extremity: sensation grossly intact to light touch in C5 to T1 dermatomes. Right upper extremity: sensation grossly intact to light touch in C5 to T1 dermatomes. Left lower extremity: sensation grossly intact to light touch in L2 to S1 dermatomes. Right lower extremity: sensation grossly intact to light touch in L2 to S1 dermatomes. Vascular: Bilateral Upper Extremity: fingers WWP Bilateral Lower Extremity: toes WWP Long-tract signs: -no Carter's -no Clonus --Drains Drain 50/180, serosanginous Imaging Scoli XR to be completed when able A/P 75y F S/p Revision PSF L1-L4, L1-4 laminectomies, dural repair 07/25 Plan Daily AM labs Pending Imaging: Upright Scoliosis XR before dc Pending Consult Team studies: None Drains: HVx1 to gravity, will maintain today Bedoya: removed, f/u void Abx: Vanc/ancef X 24 hours - completed DVT ppx: SCDs, SQH WB: Spinal fusion precautions PT progress: OT/PT ordered Pain control: , oxycodone prn, dilaudid PRN, tylenol, baclofen, zanaflex prn Bowel: Pericolace Gallo, Dulcolax suppository gallo, Miralax this AM, suppository this afternoon if no BM Diet: regular Home meds: Flexeril, Duloxetine, Eliquis (on hold), Flecainide (restarted), Xanax PT/OT: OOB Dispo: Pain, Drains, PT/OT - Please call ortho spine if patient develops any concerning changes to their neurologic exam such as new weakness or loss of bowel/bladder function ?? During normal business hours - If you know the resident's name on the appropriate orthopaedic surgery team, please use [email or web address] to page resident directly. ?? If you have questions overnight or can't reach the appropriate resident, please call the Orthopaedic Surgery Consult Pager [phone] to have your questions answered or be directed to the correct Orthopaedic Surgery resident. Jayda Lopez MD Orthopaedic Surgery Resident, PGY-5 ON KEEPER * Kathryn Wei, PT - 07/28/2020 8:22 AM CST Physical Therapy Physical Therapy Initial Assessment NOTE: This is a summary note for the khanna assessments completed during the evaluation session. For full details, review chart review for all flowsheets documented on by this physical therapist on thisdate. Vital signs documented in vital signs flowsheet. Assessment Plan Plan Plan : Discharge, If this is the last note, consider this the discharge summary PT Recommendation and Plan Recommendation/Plan PT Recommendation/Plan: Home with family, No further PT indicated PT Frequency: One time visit (Discharge from this service) PT - OK to Discharge: Yes PT Evaluation Complete: Yes General Information General Chart Reviewed: Yes Session Type: Evaluation(and discharge) PT Received On: 07/28/20 Safe Environment: Arm Band Checked, Notified RN, Call Light within Reach, Session Completed Bedside, Patient found in Supine(patient left sitting edge of bed) Subjective: Agreeable to Therapy Prior Function Prior Function Level of Orange: Independent with ADLs, Independent functional transfers, Independent with ambulation(with WW) Lives With: Spouse Receives Help From: Spouse/Significant other(design coordinator assist available) Fall within the last 6 months: No Home Living Home Living Type of Home: House Home Layout: Two level(with stair lift) Home Access: Level entry Bathroom Equipment: Shower chair Home Mobility Equipment: Wheeled walker Precautions Precautions Precautions: Fall risk, Spinal/Back Pain Pain Assessment Pain Assessment: 0-10 Pain Score: 4 Pain Location: Back (Lumbar) Pain Interventions: Repositioned, RN Notified Cognition Cognition Arousal/Alertness: Alert, Appropriate responses to stimuli Orientation : Oriented X4 (person, place, time, situation) Following Commands: Follows all commands and directions without difficulty 6 Clicks Basic Mobility - 6 Click How much difficulty does the patient have: Turning over in bed: None How much difficulty does the patient currently have: Sitting down and standing up from a chair witharms?: None How much difficulty does the patient have: Moving from lying on back to sitting on the side of the bed?: None How much difficulty does the patient have: Moving to and from a bed to a chair including wheelchair?: None How much help does the patient currently need: Walk in hospital room?: None How much help from another person does the patient currently need: Climbing 3-5 steps with a railing?: None Total 6 Click Score (range 6-24): 24 Score Interpretation: 24 Bed Mobility Bed Mobility 1 Bed Mobility From 1: Supine Bed Mobility Type 1: To Bed Mobility to 1: Edge of bed Level of Assistance 1: Modified Independent Bed Mobility Comments 1: using log roll technique with HOB flat Transfers Transfer 1 Transfer From 1: Sit Transfer Type 1: To and from Transfer to 1: Stand Technique 1: Sit to stand, Stand to sit Transfer Device 1: Wheeled walker Transfer Level of Assistance 1: Modified Independent Balance Static Sitting Balance Static Sitting-Level of Assistance: Independent Static Standing Balance Static Standing-Balance Support: Bilateral upper extremity supported(WW) Static Standing-Level of Assistance: (Mod I) Ambulation Ambulation 1 Distance (ft) 1: 100 Surface 1: Level tile Device 1: Wheeled walker Assistance 1: Modified Independent Quality of Gait 1: decreased tanya Stairs Curbs RLE Assessment RLE Assessment RLE Assessment: Within Functional Limits LLE Assessment LLE Assessment LLE Assessment: Within Functional Limits Equipment Used Other Comments PT Goals Multi-Disciplinary Problems (from Physical Therapy) Active Problems Not on file ON KEEPER * Gabbie Joy PT - 07/27/2020 8:04 AM CST Physical Therapy 07/27/20 0800 General PT Missed Visit Reason Bedrest ON KEEPER * Ashley Nagy OT - 07/27/2020 8:04 AM CST Occupational Therapy 07/27/20 0804 General OT Missed Visit Reason Bedrest ON KEEPER * Clarence Brooks MD - 07/27/2020 5:50 AM CST Orthopaedic Surgery Spine Progress Note July 27, 2020 5:50 AM Macie Briseno (1945) [id number] Ortho Spine Primary 75 y.o. 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 S/p Revision PSF L1-L4, L1-4 laminectomies, dural repair 07/25 Interval Hx - Sitting upright this AM, feels good, having trouble pressing buttons on her phone/ visual symptoms -feels like she is blinking when shes not (finger to nose slow but normal, occulomotor exam normal) - obtaining vitals/ BG/ EKG given arrthymia hx - CTM - No headaches, dressing w/ distal shadowing d/i, serosang drain output - + Flatus - Pain controlled, not pressing FURNACE PUNCHER Objective - AFVSS on 2L NC - H/H 11.7/34.7 Exam WEIGHT/BMI: Estimated body mass index is 29.07 kg/m?? as calculated from the following: Height as of this encounter: 163.8 cm (5' 4.5 ). Weight as of this encounter: 78 kg (172 lb). Constitutional: Oriented to person, place, and time and well-developed, well- nourished, and in no distress. -- Dressing: distal shadowing /d/I, nylon sutures, -- Incision: under dressing -- Motor: Muscle Strength Left Right Deltoid 5/5 5/5 Biceps 5/5 5/5 Triceps 5/5 5/5 Wrist extension 5/5 5/5 Wrist flexion 5/5 5/5 Classified Advertising Supervisor 5/5 5/5 Interosseous of hand 5/5 5/5 Iliopsoas 5/5 5/5 Hamstrings 5/5 5/5 Quadriceps 5/5 5/5 Tibialis anterior 5/5 5/5 Extensor hallicus longus 5/5 5/5 Gastrocsoleus complex 5/5 5/5 Sensation Left upper extremity: sensation grossly intact to light touch in C5 to T1 dermatomes. Right upper extremity: sensation grossly intact to light touch in C5 to T1 dermatomes. Left lower extremity: sensation grossly intact to light touch in L2 to S1 dermatomes. Right lower extremity: sensation grossly intact to light touch in L2 to S1 dermatomes. Vascular: Bilateral Upper Extremity: fingers WWP Bilateral Lower Extremity: toes WWP Long-tract signs: -Carter's -Clonus Downgoing Babinski --Drains Drain 110/190, serosang. only place to gravity Imaging Scoli XR to be completed when able A/P 75y F S/p Revision PSF L1-L4, L1-4 laminectomies 07/25 Plan Daily AM labs Pending Imaging: Scoliosis films before dc Pending Consult Team studies: None Drains: HVx1, continue to monitor Bedoya: Intact, keep in place until mobilizing well Abx: Vanc/ancef X 24 hours - completed DVT ppx: SCDs, start GALLO today WB: Spinal fusion precautions, progressed through protocol cleared to stand PT progress: OT/PT ordered Pain control: Dilaudid genetic coordinator (DC today) , oxycodone prn, tylenol, baclofen, zanaflex prn Bowel: Pericolace Gallo, Dulcolax suppository gallo, Miralax PRN Diet: CLD, Advance as tolerated to a regular diet Home meds: Flexeril, Duloxetine, Eliquis (on hold), Flecainide (restarted), Xanax PT/OT: eval and treat this afternoon Dispo: Pain, Drains, PT/OTPT/OT - Please call ortho spine if patient develops any concerning changes to their neurologic exam such as new weakness or loss of bowel/bladder function - Follow Up: Pending Progress ?? During normal business hours - If you know the resident's name on the appropriate orthopaedic surgery team, please use [employer] to page resident directly. ?? If you have questions overnight (after 1800) or can't reach the appropriate resident, please call the Orthopaedic Main Consult pager at [phone] to have your questions answered or be directed to the correct Orthopaedic Surgery resident. Clarence Brooks MD Department of Orthopaedic Surgery PGY2 [facility] in [facility] [phone] ON KEEPER * Jeremy Michelle MD - 2020 4:37 PM CST Patient doing well POD1 from revision L1-4 PSIF with decompression. Comfortable. Doing great overall with switch from FURNACE PUNCHER to oxy. No headaches on progression to sitting at 30 and then 45 today. AOx3 and NVI BL UE and LE C5-T1 and L2-S1. Drain with approp outpt Upright images pending Plan Doing well overall - plan for upright XR when able - PT UOB With spine precautions once clears sitting to standing protocol for CSF leak Jeremy Michelle MD PhD Attending Spine Surgeon Senior Technical Support Analyst of Orthopaedic and Neurological Surgery [facility] ON KEEPER * Karina Quevedo, PT - 2020 9:08 AM CST Physical Therapy 07/26/20 0908 General PT Missed Visit Reason Bedrest (Will evaluate when appropriate for physical therapy. ) ON KEEPER * Lisy Sanchez OT - 2020 9:02 AM CST 07/26/20 0900 General OT Missed Visit Reason Bedrest ON KEEPER * Clarence Brooks MD - 2020 4:52 AM CST Orthopaedic Surgery Spine Progress Note 2020 4:52 AM Macie Briseno (1945) [id number] Ortho Spine Primary 75 y.o. 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 S/p Revision PSF L1-L4, L1-4 laminectomies, dural repair 07/25 Interval Hx - NAEON - Pain controlled w/ FURNACE PUNCHER - Has been HOB flat, continue until 1330 Objective - AFVSS on 2L NC - H/H 11.7/34.7 Exam WEIGHT/BMI: Estimated body mass index is 29.07 kg/m?? as calculated from the following: Height as of this encounter: 163.8 cm (5' 4.5 ). Weight as of this encounter: 78 kg (172 lb). Constitutional: Oriented to person, place, and time and well-developed, well- nourished, and in no distress. -- Dressing: c/d/I, nylon sutures, -- Incision: under dressing -- Motor: Muscle Strength Left Right Deltoid 5/5 5/5 Biceps 5/5 5/5 Triceps 5/5 5/5 Wrist extension 5/5 5/5 Wrist flexion 5/5 5/5 Classified Advertising Supervisor 5/5 5/5 Interosseous of hand 5/5 5/5 Iliopsoas 5/5 5/5 Hamstrings 5/5 5/5 Quadriceps 5/5 5/5 Tibialis anterior 5/5 5/5 Extensor hallicus longus 5/5 5/5 Gastrocsoleus complex 5/5 5/5 Sensation Left upper extremity: sensation grossly intact to light touch in C5 to T1 dermatomes. Right upper extremity: sensation grossly intact to light touch in C5 to T1 dermatomes. Left lower extremity: sensation grossly intact to light touch in L2 to S1 dermatomes. Right lower extremity: sensation grossly intact to light touch in L2 to S1 dermatomes. Vascular: Bilateral Upper Extremity: fingers WWP Bilateral Lower Extremity: toes WWP Long-tract signs: -Carter's -Clonus Downgoing Babinski --Drains Drain 125/155, serosang. Please take off suction and only place to gravity Imaging Scoli XR to be completed when able A/P 75y F S/p Revision PSF L1-L4, L1-4 laminectomies 07/25 Plan Daily AM labs Pending Imaging: Scoliosis films before dc Pending Consult Team studies: None Drains: HVx1, continue to monitor Bedoya: Intact, keep in place until mobilizing well Abx: Vanc/ancef X 24 hours DVT ppx: SCDs, start GALLO POD2 WB: Spinal fusion precautions, BEDREST, HOB flat x24 hr (until 1330, then 30 degrees for 2 hours, if no headaches etc can go to 45 for 2, thenfull sit, then can stand. Return to flat if symptoms.) PT progress: OT/PT ordered Pain control: Dilaudid genetic coordinator (possible DC this evening if , oxycodone prn, tylenol, baclofen, zanaflex prn Bowel: Pericolace Gallo, Dulcolax suppository gallo, Miralax PRN Diet: NPO while HOB flat, can prop up head to take small sips of water. Home meds: Flexeril, Duloxetine, Eliquis (on hold), Flecainide (on hold), Xanax PT/OT: eval and treat defer today Dispo: Pain, Drains, PT/OT - Please call ortho spine if patient develops any concerning changes to their neurologic exam such as new weakness or loss of bowel/bladder function - Follow Up: Pending Progress ?? During normal business hours - If you know the resident's name on the appropriate orthopaedic surgery team, please use [employer] to page resident directly. ?? If you have questions overnight (after 1800) or can't reach the appropriate resident, please call the Orthopaedic Main Consult pager at [phone] to have your questions answered or be directed to the correct Orthopaedic Surgery resident. Clarence Brooks MD Department of Orthopaedic Surgery PGY2 [facility] in [facility] [phone] ON KEEPER ON KEEPER documented in this encounter H&P Notes * Jeremy Michelle MD - 07/25/2020 8:30 AM CST I have reviewed the H&P, examined the patient, and endorse the findings as written. Plan of Care : Based on the above findings, I consider Macie Briseno to be an acceptable risk for : Procedure(s): Revision Posterior spinal instrumented fusion T12-L4, exploration of fusion, removal of hardware L2-L4, L1/2 laminectomy with foraminotomies at L1/2, L2/3, L3/4, autograft, allograft, bone morphogenetic protein, spinal cord monitoring. REMOVAL HARDWARE SPINE BONE GRAFT WITH BONE MORPHOGENIC PROTEIN SPINAL CORD MONITORING Signed, consented, ready to proceed to OR. Jeremy Michelle MD PhD Attending Spine Surgeon Senior Technical Support Analyst of Orthopaedic and Neurological Surgery [facility] ON KEEPER Source Note - Tan Mosley MD - 07/25/2020 8:30 AM PRISON KEEPER ORTHO SPINE PREOPERATIVE H&P HPI: Macie Briseno is a 74 y.o. female presenting for surgery. There have been no relevant or significant changes since her last note. Please see below PAST MEDICAL HISTORY: Macie Briseno has a past medical history of Atrial fibrillation (CMS/HCC), Auditory vertigo, HLD(hyperlipidemia), Meniere's disease, and Microvascular angina (CMS/HCC). HOME MEDICATIONS: Macie Briseno has a current medication list which includes the following long-term medication(s): alprazolam, atorvastatin, cyanocobalamin, duloxetine dr, eliquis, flecainide, montelukast, and triamterene-hydrochlorothiazide. SURGICAL HISTORY: Macie Briseno has a past surgical history that includes Other surgical history (1998); Cholecystectomy; Joint replacement; Back surgery (2017); Vestibular nerve section (Left); and Cochlear implant (Left, 06/19/2020). ALLERGIES: Macie Briseno is allergic to adhesive; chlorhexidine; sulfa (sulfonamide antibiotics); and gabapentin. SOCIAL HISTORY: Macie Briseno reports that she has never smoked. She has never used smokeless tobacco. She reports current alcohol use of about 5.0 standard drinks of alcohol per week. She reports previous drug use. FAMILY HISTORY: Macie Briseno family history includes Hypertension in her mother; No Known Problems in her brother, father, father's brother, father's sister, maternal grandfather, maternal grandmother, mother's brother, mother's sister, paternal grandfather, paternal grandmother, and sister. She indicated thatthe status of her mother is unknown. She indicated that the status of her father is unknown. She indicated that the status of her sister is unknown. She indicated that the status of her brother is unknown. She indicated that the status of her maternal grandmother is unknown. She indicated that the status of her maternal grandfather is unknown. She indicated that the status of her paternal grandmot her is unknown. She indicated that the status of her paternal grandfather is unknown. She indicatedthat the status of her mother's sister is unknown. She indicated that the status of her mother's brother is unknown. She indicated that the status of her father's sister is unknown. She indicated that the status of her father's brother is unknown. She indicated that the status of her neg hx is unknown. REVIEW OF SYSTEMS: All ROS reviewed and were negative with exception to what is listed below or in the HPI. Prior Note: Chief Complaint Back and leg pain ?? 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 She has back pain as well as right radicular type pain. ?? She underwent back surgeries in 2017, 2018, in 2019. 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 She has hardware from L2-L4 right now. She is here withcomplaints of worsening back pain, difficulty ambulating as well as right-sided L2-3 type radicularpain. ?? She has had previous hip replacement with Dr. An and has done well from this. ?? She is here today with her partner and is very pleasant. She previously saw my senior actuarial analyst Dr. Hunt with a talked about possible revision. ?? She is a nonsmoker and otherwise fairly healthy. Recent cochlear implants. ?? Past Medical History, Past Surgical History, Initial Review of Medications, Drug Allergies, Social History, Family History, and Review of Systems ? Review of Systems A complete review of systems was obtained from the patient and is positive for: Malaise fatigue weakness tinnitus chest pain claudication leg swelling shortness of breath tingling back pain depression nervous anxious. It is otherwise negative. ?? Physical Examination WEIGHT/BMI: Estimated body mass index is 28.62 kg/m?? as calculated from the following: Height as of this encounter: 165.1 cm (5' 5 ). Weight as of this encounter: 78 kg (172 lb). CONSTITUTIONAL: In general, patient is well appearing, is alert, and is in no acute distress. PSYCH: Mood and affect are appropriate. HEENT: Pupils equal. Neck symmetric without obvious masses. RESPIRATORY: Breathing is nonlabored with no audible wheezing. CARDIOVASCULAR: Well perfused throughout GI: Abdomen is nontender. VASCULAR: There is no evidence of peripheral edema. SKIN: No obvious rashes, ulcers, or open wounds. MUSCULOSKELETAL / NEUROLOGICAL: The patient ambulates with a normal gait. RIGHT UE: C5 (biceps) 5/5 C6 (WE) 5/5 C7 (triceps) 5/5 C8 (finger flex) 5/5 T1 (inteross) 5/5 SILT throughout C5-T1 dermatomes Hoffmans - Br/Biceps 2+ ?? LEFT UE: C5 (biceps) 5/5 C6 (WE) 5/5 C7 (triceps) 5/5 C8 (finger flex) 5/5 T1 (inteross) 5/5 SILT throughout C5-T1 dermatomes Hoffmans - Br/Biceps 2+ ?? RIGHT LE: L2 (IP) 5/5 L3 (KE) 5/5 L4 (TA) 5/5 L5 (EHL) 5/5 S1 (GS) 5/5 SILT throughout L2-S1 dermatomes 2+patella 1+ achilles Downgoing toes <2b clonus ?? LEFT LE: L2 (IP) 5/5 L3 (KE) 5/5 L4 (TA) 5/5 L5 (EHL) 5/5 S1 (GS) 5/5 SILT throughout L2-S1 dermatomes 1+patella 1+ achilles Downgoing toes <2b clonus ?? Op on exam she has a lot of pain at the thoracolumbar junction Otherwise she is intact throughout Negative straight leg raise BL ?? Review of Plain Radiographs/Studies ?? Imaging was reviewed by me. ?? On her plain films she stands with an SVA of 2. She has a lumbar lordosis from L1-S1 of 47 and PI of 68. Overall she stands with relatively good balance. ?? On her CT scan she has previous hardware from L2-L4 and has when shield Wiper effect at L2- the screws are clearly loose here. 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 It appears that around the interbody perhaps it attempted her try fuse but has not. She has had interbody fusion attempted from L2 down to the sacrum. She appears well fused anterior and posterior from L3 to the sacrum. She does have air in her joints bilaterally at the SI joints. There is air noted in the joint also at T11-12. ?? On her thoracolumbar bending films I do not appreciate much movement a to P. ?? On her MRI she has stenosis noted at L1-2. Foraminal stenosis is difficult to appreciate given the metal. ? 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 Treatment Plan I discussed with the patient my impression, the imaging findings, and treatment plan in detail witha focus on the etiology, natural history, and management of her symptoms. ?? 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 ?? We are going to revise her from either T12 or L1-L4. We will remove the old instrumentation and replace it. We will decompress her where she needs to be decompressed and will use BMP as well as bone graft. We will use allograft chips as well as possible use of a structural allograft posteriorly. ?? The patient really does not want to come back next year if it breaks down above were we stop. I certainly understand this. She understands there is some risk of breaking down above T12 or L1 given that it is at the junctional level. However given her air in the joint at T11-12 I do not think stopping at T12 makes sense and I do not think she necessarily needs to go higher at this point. I do think we need to go up to L1 given the need for the decompression as well as stabilization of the 2/3 nonunion. Because she has a nonunion at L2/3 I do think she needs stabilization 2 above and 2 below. We will plan for L1-L4 revision surgery with removal of old hardware and decompression. ?? Because on her CT scan she has air in the joint vacuum phenomenon at T11-12 I do not think stoppingat T12 is a great idea. She does not have lots of motion through these areas on her bending thoracolumbar films so I think the most reasonable thing is to probably go from L1-L4. She does have air inher joints at the SI joints bilaterally but I do not think that is the main problem. If moving forward she starts to have pain here that can be addressed but I think that is a separate issue and 2nd separate surgery. ?? Finally given her L2-3 type pain on the right side I do think it would help to get an EMG of her bilateral lower extremities. I think this will help us in determining how aggressive to be with the foraminotomies. ?? We will get infectious labs ESR CRP CBC We will make sure we have her old operative reports ?? L2-4 removal of hardware, L1-4 posterior spinal instrumented fusion, laminectomy at L1 and L2 with foraminotomies at L1-2, L2-3, L3-4. ?? LABS: Lab Results Component Value Date WBC 4.8 07/13/2020 HGB 13.1 07/13/2020 HCT 39.5 07/13/2020 MCV 85.7 07/13/2020 LABPLAT 308 07/13/2020 Lab Results Component Value Date GLUCOSE 86 07/13/2020 CALCIUM 9.5 07/13/2020 SODIUM 140 07/13/2020 POTASSIUM 4.0 07/13/2020 CO2 28 07/13/2020 CHLORIDE 102 07/13/2020 BUNSER 16 07/13/2020 CREATININE 0.84 07/13/2020 Lab Results Component Value Date INR 1.08 07/07/2014 25HYDROVITD 50 07/13/2020 PLAN: Proceed with surgery as planned. Risks were discussed in detail for the planned procedure. Specifically, we discussed the risk for bleeding, infection, and damage to surrounding structures including the spinal cord and/or nerve roots, & other structures near the surgical field, which could require rapid intervention. I explained that these are low risk but not zero percent risk. If one of these complications occur it could result in paralysis, weakness, or even and I explained this in detail. I discussed with her risk of bleeding and that we would transfuse blood products should they be needed. I also explained that there are other potential risks not related specifically to the surgery including pneumonia or other unforeseen complications as a result of anesthesia and being hospitalized. Additionally we discussed at length that a possible outcome is that be there is no improvement in symptoms. Macie verbalized complete understanding of these potential risks and has elected to proceed with surgery as planned. I believe adequate informed consent was obtained today in clinic and she seems to understand the risks and potential benefits of undergoing surgery and has elected to proceed. We will see her back on the day of surgery. Tan Mosley MD Surgical Spine Fellow ON KEEPER * Tan Mosley MD - 07/25/2020 8:30 AM CST ORTHO SPINE PREOPERATIVE H&P HPI: Macie Briseno is a 74 y.o. female presenting for surgery. There have been no relevant or significant changes since her last note. Please see below PAST MEDICAL HISTORY: Macie Briseno has a past medical history of Atrial fibrillation (CMS/HCC), Auditory vertigo, HLD(hyperlipidemia), Meniere's disease, and Microvascular angina (CMS/HCC). HOME MEDICATIONS: Macie Briseno has a current medication list which includes the following long-term medication(s): alprazolam, atorvastatin, cyanocobalamin, duloxetine dr, eliquis, flecainide, montelukast, and triamterene-hydrochlorothiazide. SURGICAL HISTORY: Macie Briseno has a past surgical history that includes Other surgical history (1998); Cholecystectomy; Joint replacement; Back surgery (2017); Vestibular nerve section (Left); and Cochlear implant (Left, 06/19/2020). ALLERGIES: Macie Briseno is allergic to adhesive; chlorhexidine; sulfa (sulfonamide antibiotics); and gabapentin. SOCIAL HISTORY: Macie Briseno reports that she has never smoked. She has never used smokeless tobacco. She reports current alcohol use of about 5.0 standard drinks of alcohol per week. She reports previous drug use. FAMILY HISTORY: Macie Briseno family history includes Hypertension in her mother; No Known Problems in her brother, father, father's brother, father's sister, maternal grandfather, maternal grandmother, mother's brother, mother's sister, paternal grandfather, paternal grandmother, and sister. She indicated thatthe status of her mother is unknown. She indicated that the status of her father is unknown. She indicated that the status of her sister is unknown. She indicated that the status of her brother is unknown. She indicated that the status of her maternal grandmother is unknown. She indicated that the status of her maternal grandfather is unknown. She indicated that the status of her paternal grandmot her is unknown. She indicated that the status of her paternal grandfather is unknown. She indicatedthat the status of her mother's sister is unknown. She indicated that the status of her mother's brother is unknown. She indicated that the status of her father's sister is unknown. She indicated that the status of her father's brother is unknown. She indicated that the status of her neg hx is unknown. REVIEW OF SYSTEMS: All ROS reviewed and were negative with exception to what is listed below or in the HPI. Prior Note: Chief Complaint Back and leg pain ?? 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 She has back pain as well as right radicular type pain. ?? She underwent back surgeries in 2017, 2018, in 2019. 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 She has hardware from L2-L4 right now. She is here withcomplaints of worsening back pain, difficulty ambulating as well as right-sided L2-3 type radicularpain. ?? She has had previous hip replacement with Dr. An and has done well from this. ?? She is here today with her partner and is very pleasant. She previously saw my senior actuarial analyst Dr. Hunt with a talked about possible revision. ?? She is a nonsmoker and otherwise fairly healthy. Recent cochlear implants. ?? Past Medical History, Past Surgical History, Initial Review of Medications, Drug Allergies, Social History, Family History, and Review of Systems ? Review of Systems A complete review of systems was obtained from the patient and is positive for: Malaise fatigue weakness tinnitus chest pain claudication leg swelling shortness of breath tingling back pain depression nervous anxious. It is otherwise negative. ?? Physical Examination WEIGHT/BMI: Estimated body mass index is 28.62 kg/m?? as calculated from the following: Height as of this encounter: 165.1 cm (5' 5 ). Weight as of this encounter: 78 kg (172 lb). CONSTITUTIONAL: In general, patient is well appearing, is alert, and is in no acute distress. PSYCH: Mood and affect are appropriate. HEENT: Pupils equal. Neck symmetric without obvious masses. RESPIRATORY: Breathing is nonlabored with no audible wheezing. CARDIOVASCULAR: Well perfused throughout GI: Abdomen is nontender. VASCULAR: There is no evidence of peripheral edema. SKIN: No obvious rashes, ulcers, or open wounds. MUSCULOSKELETAL / NEUROLOGICAL: The patient ambulates with a normal gait. RIGHT UE: C5 (biceps) 5/5 C6 (WE) 5/5 C7 (triceps) 5/5 C8 (finger flex) 5/5 T1 (inteross) 5/5 SILT throughout C5-T1 dermatomes Hoffmans - Br/Biceps 2+ ?? LEFT UE: C5 (biceps) 5/5 C6 (WE) 5/5 C7 (triceps) 5/5 C8 (finger flex) 5/5 T1 (inteross) 5/5 SILT throughout C5-T1 dermatomes Hoffmans - Br/Biceps 2+ ?? RIGHT LE: L2 (IP) 5/5 L3 (KE) 5/5 L4 (TA) 5/5 L5 (EHL) 5/5 S1 (GS) 5/5 SILT throughout L2-S1 dermatomes 2+patella 1+ achilles Downgoing toes <2b clonus ?? LEFT LE: L2 (IP) 5/5 L3 (KE) 5/5 L4 (TA) 5/5 L5 (EHL) 5/5 S1 (GS) 5/5 SILT throughout L2-S1 dermatomes 1+patella 1+ achilles Downgoing toes <2b clonus ?? Op on exam she has a lot of pain at the thoracolumbar junction Otherwise she is intact throughout Negative straight leg raise BL ?? Review of Plain Radiographs/Studies ?? Imaging was reviewed by me. ?? On her plain films she stands with an SVA of 2. She has a lumbar lordosis from L1-S1 of 47 and PI of 68. Overall she stands with relatively good balance. ?? On her CT scan she has previous hardware from L2-L4 and has when shield Wiper effect at L2- the screws are clearly loose here. 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 It appears that around the interbody perhaps it attempted her try fuse but has not. She has had interbody fusion attempted from L2 down to the sacrum. She appears well fused anterior and posterior from L3 to the sacrum. She does have air in her joints bilaterally at the SI joints. There is air noted in the joint also at T11-12. ?? On her thoracolumbar bending films I do not appreciate much movement a to P. ?? On her MRI she has stenosis noted at L1-2. Foraminal stenosis is difficult to appreciate given the metal. ? 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 Treatment Plan I discussed with the patient my impression, the imaging findings, and treatment plan in detail witha focus on the etiology, natural history, and management of her symptoms. ?? 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 ?? We are going to revise her from either T12 or L1-L4. We will remove the old instrumentation and replace it. We will decompress her where she needs to be decompressed and will use BMP as well as bone graft. We will use allograft chips as well as possible use of a structural allograft posteriorly. ?? The patient really does not want to come back next year if it breaks down above were we stop. I certainly understand this. She understands there is some risk of breaking down above T12 or L1 given that it is at the junctional level. However given her air in the joint at T11-12 I do not think stopping at T12 makes sense and I do not think she necessarily needs to go higher at this point. I do think we need to go up to L1 given the need for the decompression as well as stabilization of the 2/3 nonunion. Because she has a nonunion at L2/3 I do think she needs stabilization 2 above and 2 below. We will plan for L1-L4 revision surgery with removal of old hardware and decompression. ?? Because on her CT scan she has air in the joint vacuum phenomenon at T11-12 I do not think stoppingat T12 is a great idea. She does not have lots of motion through these areas on her bending thoracolumbar films so I think the most reasonable thing is to probably go from L1-L4. She does have air inher joints at the SI joints bilaterally but I do not think that is the main problem. If moving forward she starts to have pain here that can be addressed but I think that is a separate issue and 2nd separate surgery. ?? Finally given her L2-3 type pain on the right side I do think it would help to get an EMG of her bilateral lower extremities. I think this will help us in determining how aggressive to be with the foraminotomies. ?? We will get infectious labs ESR CRP CBC We will make sure we have her old operative reports ?? L2-4 removal of hardware, L1-4 posterior spinal instrumented fusion, laminectomy at L1 and L2 with foraminotomies at L1-2, L2-3, L3-4. ?? LABS: Lab Results Component Value Date WBC 4.8 07/13/2020 HGB 13.1 07/13/2020 HCT 39.5 07/13/2020 MCV 85.7 07/13/2020 LABPLAT 308 07/13/2020 Lab Results Component Value Date GLUCOSE 86 07/13/2020 CALCIUM 9.5 07/13/2020 SODIUM 140 07/13/2020 POTASSIUM 4.0 07/13/2020 CO2 28 07/13/2020 CHLORIDE 102 07/13/2020 BUNSER 16 07/13/2020 CREATININE 0.84 07/13/2020 Lab Results Component Value Date INR 1.08 07/07/2014 25HYDROVITD 50 07/13/2020 PLAN: Proceed with surgery as planned. Risks were discussed in detail for the planned procedure. Specifically, we discussed the risk for bleeding, infection, and damage to surrounding structures including the spinal cord and/or nerve roots, & other structures near the surgical field, which could require rapid intervention. I explained that these are low risk but not zero percent risk. If one of these complications occur it could result in paralysis, weakness, or even and I explained this in detail. I discussed with her risk of bleeding and that we would transfuse blood products should they be needed. I also explained that there are other potential risks not related specifically to the surgery including pneumonia or other unforeseen complications as a result of anesthesia and being hospitalized. Additionally we discussed at length that a possible outcome is that be there is no improvement in symptoms. Macie verbalized complete understanding of these potential risks and has elected to proceed with surgery as planned. I believe adequate informed consent was obtained today in clinic and she seems to understand the risks and potential benefits of undergoing surgery and has elected to proceed. We will see her back on the day of surgery. Tan Mosley MD Surgical Spine Fellow ON KEEPER documented in this encounter Nursing Notes * Tootie Polanco RN - 07/27/2020 8:00 AM CST Patient states her hands feel shaky and her vision is jumping . Notified Dr. Brooks. saw patient at bedside. No new orders given. Got BP and blood sugar per MD request. ON KEEPER * Tarah Knight RN - 2020 1:56 PM CST Pt very drowsy and forgetful this morning; reminded pt of FURNACE PUNCHER if pain occurs; pt complained of increasing pain around 1130; pt reminded about FURNACE PUNCHER button; pt states she does not think it is working; contacted ortho resident Clarence Brooks approx 1230 of pt complaint of intensifying pain; MD instructedto offer oral pain medication instead of FURNACE PUNCHER pump; pt agreeable; 1400 pt reports decreased pain andstates she is comfortable ON KEEPER documented in this encounter Miscellaneous Notes * Plan of Care - Tarah Knight RN - 2020 10:25 AM CST Clinical Goals for the Shift: pain management; IS use; VSS; gradual raise in HOB Problem: Health Behavior: Goal: Understanding of discharge needs will improve Outcome: Progressing Problem: Activity: Goal: Mobility will improve Outcome: Progressing Problem: Lack of Knowledge: Goal: Understanding of ways to prevent future skin breakdown will improve Outcome: Progressing Goal: Ability to identify appropriate dietary choices will improve Outcome: Progressing Problem: Nutritional: Goal: Dietary intake will improve Outcome: Progressing Goal: Ability to maintain a balanced intake and output will improve Outcome: Progressing Problem: Skin Integrity: Goal: Risk for impaired skin integrity will decrease Outcome: Progressing Goal: Ability to demonstrate warm and dry skin will improve Outcome: Progressing Goal: Circulation will improve to fullest extent possible Outcome: Progressing ON KEEPER * Plan of Care - Wendi Catherine RN - 07/25/2020 10:51 PM CST Problem: Health Behavior: Goal: Understanding of discharge needs will improve Outcome: Progressing Problem: Activity: Goal: Mobility will improve Outcome: Progressing Problem: Lack of Knowledge: Goal: Understanding of ways to prevent future skin breakdown will improve Outcome: Progressing Goal: Ability to identify appropriate dietary choices will improve Outcome: Progressing Problem: Nutritional: Goal: Dietary intake will improve Outcome: Progressing Goal: Ability to maintain a balanced intake and output will improve Outcome: Progressing Problem: Skin Integrity: Goal: Risk for impaired skin integrity will decrease Outcome: Progressing Goal: Ability to demonstrate warm and dry skin will improve Outcome: Progressing Goal: Circulation will improve to fullest extent possible Outcome: Progressing ON KEEPER * Op Note - Jeremy Michelle MD - 07/25/2020 9:55 AM CST Operative Report Surgeon Jeremy Michelle MD PhD Wood Tank Builder(s) Wicho Mosley MD Anesthesia General endotracheal. 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 L1-4 posterior spinal instrumented fusion 2. Removal of hardware L2-4 3. Revision of nonunion at L2/3 4. Laminectomy of L1/2 5. Bilateral foraminotomies at L1-2 and L2-3. Indications for Surgery This is a pleasant 75-year-old female who is well known to me. She came to clinic with signs and symptoms of neurogenic claudication as well as adjacent segment disease at L1-2. She also had a nonunion at L2-3 with loose screws at L2. We discussed the options as the patient had failed conservative therapy at this time and now had a nonunion with loose screws. Plan would be to remove the hardware investigate the fusion mass address the 2 3 nonunion and decompress at L1-2 will going up to L1. Risk benefits were discussed extensively the patient wished to proceed. The indications for the procedure, the potential risks, expected benefits, and alternatives to surgery were discussed with the patient and the patient gave her informed consent to proceed. Operative Findings / Description The operative site was identified and marked preoperatively. The patient was then brought back to the operating room supine on the hospital stretcher. She was administered a general anesthetic and oral endotracheal intubation was performed by the anesthesiology service team. Additional intravenous access was obtained. Preoperative intravenous antibiotics were administered for infection prophylaxis. Spinal cord monitoring needles were placed. A Bedoya catheter was placed if not already in place. The patient was then turned prone onto the OSI Greg table. All bony prominences were properly padded and the patient's abdomen and axillae were allowed to hang free. The patient's head and neck were supported using the prone view pillow. Once were satisfied with the patient's position on the operating table, the patient was secured to the table. The posterior spine was then prepped and draped in the usual sterile fashion using alcohol and DuraPrep x 2. A plain film was used to localize our incision. A plain film was also used to rk our level during surgery. A time out was performed where name of the patient, procedure, antibiotics, and plan were all reviewed. Any pertinent images were up in the room and confirmed as the correct patient. Standard midline incision was made down to the patient's spine. We worked to the hardware bilaterally and then removed set screws and rods bilaterally. The L2 screws came out easily without any need for unscrewing them as they were very loose. This was expected. The L3 and L4 screws were also removed. We exposed the TPs bilaterally and specifically expose the bone at L2-3 bilaterally. Nonunion was noted at this point. Next we cannulated and placed screws at L1 bilaterally using the standard freehand technique and confirming with fluoroscopy. Next we then upsized length and width based on preoperative imaging at L2-L3 and L4 with pedicle screws. We stimulated these they were found to be safe. Bone graft was also packed into the L2 pedicle screws. A slightly different trajectory was used onthe right to maximize purchase. All screws had good purchase. Placement of screws was confirmed with fluoroscopy. Once this was done we turned our attention to the decompression. A bone scalpel, Kerrison rongeurs,L[place]ell rongeurs were used to remove the bone at the bottom half of L1 and the remaining bone at L2. There is a small ring of bone remaining at the superior aspect of L2 that appeared to be quite compressive. With the remaining bone of L2, a small dural leak was encountered. This was closed with 2 Prolene sutures 5-0. This was covered with tachisil and DuraSeal and Valsalva was performed to ensure tight closure. A Kendall was used to confirm decompression. Ultrasound was also used to confirm decompression. Foraminotomies with the Kerrison rongeur were performed at L1-2 and L2-3. Foramen at L1-2 and L2-3 were free and clear when this was completed. [place] confirmed this Rods were placed and final imaging was obtained. We were pleased with alignment in the AP and lateral planes. We final tightened the caps. We decorticated at L1-L2 L3 and L4. Bone graft was placed atL1 through 4 with emphasis at the L2-3 previous nonunion. BMP was also used specifically at the nonunion site. The TPs were decorticated throughout. Bone graft was laid down throughout. Copious irrigation was used throughout. Once we were satisfied with this we set about closing in the usual layered fashion. We did this using 1 Vicryl, 2-0 Vicryl, 2-0 nylon. Drains were left deep. 2g of vancomycin were placed in the wound. Sterile dressing was applied at the end the case. The patient was removed from the table and awakened from anesthesia and moved all 4 extremities without difficulty. All counts were correct and there were no complications. Neuromonitoring data remained stable during the procedure. I was scrubbed and present for all critical portions of the procedure including exposure, removal of hardware, placement of pedicle screws at L1 through 4 placement of bone graft at L1 through 4, decompression of L1-2, foraminotomies at L1-2 and L2-3, through closure of the skin. I was immediately available for all non-critical portions of the procedure. Please note that Dr. mosley was scrubbed and present as well. He assisted during the case in its entirety including exposure, removal of hardware, placement of pedicle screws at L1 through 4 placement of bone graft at L1 through 4, decompression of L1-2, foraminotomies at L1-2 and L2-3, through closure of the skin. His skilled assistance greatly helped to expedite the case thereby making the procedure safer. In addition, his skilled assistance was required as no qualified resident was available. Specimens None Counts Correct. Estimated Blood Loss 100cc Complications None Anticoagulation Plan Starting postop day 2 subq heparin SCDs now Condition on transfer out of OR Stable. Flat bedrest for 24 hours s/p durotomy repair No anticoagulation until POD2 Jeremy Michelle MD PhD Attending Physician [facility] Division of Spine Surgery c. p. [phone] Implant Information Implant Name Type Inv. Item Serial No. Take Up Operator Lot No. [id number] No. Used Action [employer] [id number] CRUSHED CHIP FROZEN GRAFT 30ML BONE CANCELLOUS - [id number] [employer] [id number] Chip Frozen Graft 30ml Bone Cancellous [employer] [id number] N/A 1 Implanted [employer] SOFAMOR DANEK [id number] INFUSE 18MM 26MM ABSORBABLE SPONGE STERILE WATER SYRINGE NEEDLE - [id number] [employer] SOFAMOR DANEK [id number] Infuse 18mm 26mm Absorbable Sponge Sterile Water Syringe Needle [employer] [id number] N/A 1 Implanted ALLOSOURCE [id number] CRUSHED CHIP FROZEN GRAFT 30ML BONE CANCELLOUS - [id number] [employer]OSOURCE [id number] Chip Frozen Graft 30ml Bone Cancellous Allosource [id number] N/A 1 Implanted DEPUY SPINE [id number] EXPEDIUM 6.5MM 60MM POLYAXIAL SPINE SCREW BONE TITANIUM 5.5MM EL - [id number] DEPUY SPINE [id number] Expedium 6.5mm 60mm Polyaxial Spine Screw Bone Titanium 5.5mm El Depuy Spine N/A 2 Implanted DEPUY SPINE [id number] EXPEDIUM 7MM 55MM 1 INNIE POLYAXIAL SPINE SCREW BONE TITANIUM - [id number] DEPUY SPINE [id number] Expedium 7mm 55mm 1 Innie Polyaxial Spine Screw Bone Titanium Depuy Spine N/A 3 Implanted DEPUY SPINE [id number] EXPEDIUM 7MM 50MM 1 INNIE POLYAXIAL SPINE SCREW BONE TITANIUM - [id number] DEPUY SPINE [id number] Expedium 7mm 50mm 1 Innie Polyaxial Spine Screw Bone Titanium Depuy Spine N/A 3 Implanted DEPUY SPINE [id number] EXPEDIUM 5.5MM 85MM LINE PREBENT EL SPINAL TITANIUM NONSTERILE - [id number] DEPUY SPINE [id number] Expedium 5.5mm 85mm Line Prebent El Spinal Titanium Nonsterile Depuy Spine N/A 2 Implanted DEPUY SPINE [id number] EXPEDIUM 1 INNER MONOAXIAL SPINE SCREW SET TITANIUM - [id number] DEPUY SPINE [id number] Expedium 1 Inner Monoaxial Spine Screw Set Titanium Depuy Spine N/A 8 Implanted Operative Report dictated by Jeremy Michelle MD PhD on 07/25/20 using Fluency Direct. Data Power Consultant variances may occur. ON KEEPER documented in this encounter Plan of Treatment Not on file documented as of this encounter Procedures Procedure Name Priority Date/Time Associated Diagnosis Comments CBC WITHOUT DIFFERENTIAL Routine 07/29/2020 4:47 AM PRISON KEEPER XR SCOLIOSIS AP LAT ED Urgent/IP Urgent 07/28/2020 1:24 PM PRISON KEEPER CBC WITHOUT DIFFERENTIAL Routine 07/28/2020 4:33 AM PRISON KEEPER ECG 12-LEAD Routine 07/27/2020 9:57 AM PRISON KEEPER POCT GLUCOSE DEVICE Routine 07/27/2020 8 :23 AM PRISON KEEPER CBC WITHOUT DIFFERENTIAL Routine 07/27/2020 4:03 AM PRISON KEEPER APTT Routine 2020 5:28 AM PRISON KEEPER PROTIME-INR Routine 2020 5:28 AM PRISON KEEPER CBC WITHOUT DIFFERENTIAL Routine 2020 5:28 AM PRISON KEEPER BASIC METABOLIC PANEL Routine 2020 5:28 AM PRISON KEEPER APTT STAT 07/25/2020 2:04 PM PRISON KEEPER PROTIME-INR STAT 07/25/2020 2:04 PM PRISON KEEPER CBC WITHOUT DIFFERENTIAL STAT 07/25/2020 2:04 PM PRISON KEEPER COMPREHENSIVE METABOLIC PANEL STAT 07/25/2020 2:04 PM PRISON KEEPER FL FLUOROSCOPY < 1 HOUR IP Routine 07/25/2020 12:33 PM PRISON KEEPER POC BLOOD GAS AND CHEMISTRIES, ARTERIAL Routine 07/25/2020 10:09 AM PRISON KEEPER SPINAL CORD MONITORING 0 8:34 AM PRISON KEEPER Acute low back pain, unspecified back pain laterality, unspecified whether sciatica present Special Needs Cut to close:480, bone scalpel, SCM, fluoro,O-arm, TXA, ultrasound, Flat plate, Greg Frame, GW, PRBCS _2_units, local autograft, allograft chips, 1 lrge unopened BMP Kit, DePuy Expedium, Revision (Dr Henry, 2019) Globus Creo (rep brining removal tool s) BONE GRAFT WITH BONE MORPHOGENIC PROTEIN 07/25/2020 8:34 AM PRISON KEEPER Acute low back pain, unspecified back pain laterality, unspecified whether sciatica present Special Needs Cut to close:480, bone scalpel, SCM, fluoro,O-arm, TXA, ultrasound, Flat plate, Greg Frame, GW, PRBCS _2_units, local autograft, allograft chips, 1 lrge unopened BMP Kit, DePuy Expedium, Revision (Dr Henry, 2019) Globus Creo (rep brining removal tool s) REMOVAL HARDWARE SPINE 0 8:34 AM PRISON KEEPER Acute low back pain, unspecified back pain laterality, unspecified whether sciatica present Special Needs Cut to close:480, bone scalpel, SCM, fluoro,O-arm, TXA, ultrasound, Flat plate, Greg Frame, GW, PRBCS _2_units, local autograft, allograft chips, 1 lrge unopened BMP Kit, DePuy Expedium, Revision (Dr Henry, 2019) Globus Creo (rep brining removal tool s) FUSION DECOMPRESSION LAMINECTOMY WITH INSTRUMENTATION - DEPUY EXPEDIUM 07/25/2020 8:34 AM PRISON KEEPER Acute low back pain, unspecified back pain laterality, unspecified whether sciatica present Special Needs Cut to close:480, bone scalpel, SCM, fluoro,O-arm, TXA, ultrasound, Flat plate, Greg Frame, GW, PRBCS _2_units, local autograft, allograft chips, 1 lrge unopened BMP Kit, DePuy Expedium, Revision (Dr Henry, 2019) Globus Creo (rep brining removal tool s) PREPARE RBC Timed 07/25/2020 6:43 AM PRISON KEEPER documented in this encounter Results * (ABNORMAL) CBC without differential (07/29/2020 4:47 AM PRISON KEEPER) [facility] WBC 5.4 3.8 - 9.9 K/cumm [facility] Hgb 11.0(L) 11.9 - 15.5 g/dL [facility] Hct 31.8(L) 35.6 - 45.5 % [facility] Plt 247 150 - 400 K/cumm [facility] MPV 10.0 9.1 - 12.3 fL [facility] RBC 3.70(L) 3.90 - 5.20 M/cumm [facility] MCV 85.9 81.3 - 96.4 fL [facility] MCH 29.7 27.1 - 33.3 pg [facility] MCHC 34.6 32.3 - 35.7 g/dL [facility] RDW CV 13.9 11.1 - 14.9 % [facility] RDW SD 43.8 35.7 - 48.1 fL [facility] NRBC abs 0.00 0.00 - 0.01 K/cumm [facility] Blood specimen (specimen) 07/29/2020 4:47 AM PRISON KEEPER 07/29/2020 5:02 AM PRISON KEEPER us Fay Leyva NP LAB BLOOD ORDERABLES Geovanna huynh Result Performing Organization Address City/State/[facility] Co de Phone Number [facility] [place] [address] * XR Scoliosis Ap and Lateral (07/28/2020 1:24 PM PRISON KEEPER) Anatomical Region Laterality Modality Spine N/A Computed Radiogr aphy 07/28/2020 2:26 PM PRISON KEEPER Impressions 07/28/2020 2:26 PM PRISON KEEPER 1. ??Interval revision of instrumented lumbar posterior spinal fusion and decompression which now extends from L1 through L4. ??Unchanged non-instrumented posterior spinal fusion and posterior decompression from L4 through S1 and discectomy with interbody fusion from L2 through S1. Electronically signed by: Yemi Francis M.D. Narrative 07/28/2020 2:26 PM PRISON KEEPER EXAMINATION: Thoracolumbar scoliosis 2 or 3 views HISTORY: FINDINGS: Stitched AP and lateral images of the thoracolumbar spine are submitted for interpretation and compared to prior examination 04/26/2020. There is revision instrumented posterior spinal fusion from L1 through L4 with posterior decompression. ??There is unchanged non-instrumented posterior spinal fusion and posterior decompression from L4 through S1 with posterior decompression and unchanged discectomy with interbody fusion from L2 through S1. ??Surgical drain is present posteriorly. ??There is mild anterior sagittal imbalance. No coronal imbalance and no pelvic tilt. ??Degenerative disc disease is present in the lower thoracic and upper lumbar spine with flat back deformity of the thoracic spine. ??Bilateral total hip arthroplasties are present. Procedure Note Yemi Francis MD - 07/28/2020 EXAMINATION: Thoracolumbar scoliosis 2 or 3 views HISTORY: FINDINGS: Stitched AP and lateral images of the thoracolumbar spine are submitted for interpretation and compared to prior examination 04/26/2020. There is revision instrumented posterior spinal fusion from L1 through L4 with posterior decompression. There is unchanged non-instrumented posterior spinal fusion and posterior decompression from L4 through S1 with posterior decompression and unchanged discectomy with interbody fusion from L2 through S1. Surgical drain is present posteriorly. There is mild anterior sagittal imbalance. No coronal imbalance and no pelvic tilt. Degenerative disc disease is present in the lower thoracic and upper lumbar spine with flat back deformity of the thoracic spine. Bilateral total hip arthroplasties are present. IMPRESSION: 1. Interval revision of instrumented lumbar posterior spinal fusion and decompression which now extends from L1 through L4. Unchanged non-instrumented posterior spinal fusion and posterior decompression from L4 through S1 and discectomy with interbody fusion from L2 through S1. Electronically signed by: Yemi Francis M.D. Jeremy Michelle MD IMG XR PROCEDURES Fi nal Result * (ABNORMAL) CBC without differential (07/28/2020 4:33 AM PRISON KEEPER) [facility] Signature WBC 6.8 3.8 - 9.9 K/cumm [facility] Hgb 10.5(L) 11.9 - 15.5 g/dL [facility] Hct 31.9(L) 35.6 - 45.5 % [facility] Plt 248 150 - 400 K/cumm [facility] MPV 10.1 9.1 - 12.3 fL [facility] RBC 3.67(L) 3.90 - 5.20 M/cumm [facility] MCV 86.9 81.3 - 96.4 fL [facility] MCH 28.6 27.1 - 33.3 pg [facility] MCHC 32.9 32.3 - 35.7 g/dL [facility] RDW CV 14.3 11.1 - 14.9 % [facility] RDW SD 45.6 35.7 - 48.1 fL [facility] NRBC abs 0.00 0.00 - 0.01 K/cumm [facility] Blood specimen (specimen) 07/28/2020 4:33 AM PRISON KEEPER 07/28/2020 4:44 AM PRISON KEEPER us Fay Leyva SENIOR TECHNICAL RECRUITER LAB BLOOD ORDERABLES Geovanna l Result Performing Organization Address City/[facility] Co de Phone Number [facility] [place] [address] * ECG 12 lead (07/27/2020 9:57 AM PRISON KEEPER) Ventricular Rate EKG/Min 55 BPM [facility] Atrial Rate 55 BPM [facility] WA-Interval (MSEC) 184 ms [facility] QRS-Interval (MSEC) 108 ms [facility] QT-Interval (MSEC) 458 ms [facility] QTc 438 ms [facility] P [place] 111 degrees [facility] R [place] 54 degrees [facility] T [place] 115 degrees [facility] Diagnosis Sinus bradycardia Left ventricular hypertrophy with repolarization abnormality Abnormal ECG No previous ECGs available Confirmed by STAN CARABALLO M.D ([id number]) on 07/30/2020 2:23:03 PM [facility] 07/27/2020 9:57 AM PRISON KEEPER 07/30/2020 2:23 PM PRISON KEEPER Jeremy Michelle MD ECG ORDERABLES Geovanna l Result [facility] * POCT glucose (07/27/2020 8:23 AM PRISON KEEPER) Glucose, POC 106 70 - 199 mg/dL [facility] Blood specimen (specimen) 07/27/2020 8:23 AM PRISON KEEPER 07/27/2020 8:23 AM PRISON KEEPER Jeremy Michelle MD LAB POCT ORDERABLES - DEVICE Final Result Performing Organization Address [facility] Co de Phone Number [facility] Department [place] [address] * (ABNORMAL) CBC without differential (07/27/2020 4:03 AM PRISON KEEPER) WBC 9.7 3.8 - 9.9 K/cumm [facility] Hgb 10.6(L) 11.9 - 15.5 g/dL [facility] Hct 32.1(L) 35.6 - 45.5 % [facility] Plt 242 150 - 400 K/cumm [facility] MPV 9.9 9.1 - 12.3 fL [facility] RBC 3.67(L) 3.90 - 5.20 M/cumm [facility] MCV 87.5 81.3 - 96.4 fL [facility] MCH 28.9 27.1 - 33.3 pg [facility] MCHC 33.0 32.3 - 35.7 g/dL [facility] RDW CV 14.3 11.1 - 14.9 % [facility] RDW SD 46.1 35.7 - 48.1 fL [facility] NRBC abs 0.00 0.00 - 0.01 K/cumm [facility] Blood specimen (specimen) 07/27/2020 4:03 AM PRISON KEEPER 07/27/2020 4:14 AM PRISON KEEPER Fay Leyva SENIOR TECHNICAL RECRUITER LAB BLOOD ORDERABLES Geovanna l Result Performing Organization Address [facility]/ZIP Co de Phone Number [facility] [place] [address] * (ABNORMAL) CBC without differential (2020 5:28 AM PRISON KEEPER) WBC 9.3 3.8 - 9.9 K/cumm [facility] Hgb 11.7(L) 11.9 - 15.5 g/dL [facility] Hct 34.7(L) 35.6 - 45.5 % [facility] Plt 269 150 - 400 K/cumm [facility] MPV 9.7 9.1 - 12.3 fL [facility] RBC 4.02 3.90 - 5.20 M/cumm [facility] MCV 86.3 81.3 - 96.4 fL [facility] MCH 29.1 27.1 - 33.3 pg [facility] MCHC 33.7 32.3 - 35.7 g/dL [facility] RDW CV 14.0 11.1 - 14.9 % [facility] RDW SD 44.3 35.7 - 48.1 fL [facility] NRBC abs 0.00 0.00 - 0.01 K/cumm [facility] Blood specimen (specimen) 2020 5:28 AM PRISON KEEPER 2020 5:45 AM PRISON KEEPER Result [facility] Fay Leyva NP LAB BLOOD ORDERABLES Geovanna l Result Performing Organization Address [facility] de Phone Number [facility] [place] [place] [address] * aPTT (2020 5:28 AM PRISON KEEPER) aPTT 27 25 - 37 sec [facility] Comment: Interpretive data Heparin therapeutic range: 60-90 seconds Range based on correlation with therapeutic heparin activity range of 0.3-0.7 units/ml. Current interpretive data was last revised on 2019. Blood specimen (specimen) 2020 5:28 AM PRISON KEEPER 2020 5:42 AM PRISON KEEPER Fay Leyva NP LAB BLOOD ORDERABLES Geovanna l Result Performing Organization Address City/[facility] Co de Phone Number [facility] [place] [employer] [place] [address] * Protime-INR (2020 5:28 AM PRISON KEEPER) PT 11.7 8.6 - 13.0 sec [facility] INR 1.1 0.8 - 1.2 [facility] Comment: Interpretive data Oral anticoagulant therapeutic ranges: Venous thromboembolism prophylaxis or treatment: 2.0-3.0 CARDIOLOGY Standard range: 2.0-3.0 High-intensity range: 2.5-3.5 Refer to indication-specific guidelines for appropriate target ranges for prosthetic heart valve replacement. Current interpretive data was last revised on 2019. Blood specimen (specimen) 2020 5:28 AM PRISON KEEPER 2020 5:42 AM PRISON KEEPER Fay Leyva NP LAB BLOOD ORDERABLES Geovanna l Result [facility] Department [place] [address] * Basic metabolic panel (2020 5:28 AM PRISON KEEPER) Sodium 140 135 - 145 mmol/L [facility] Potassium, pl 3.8 3.3 - 4.9 mmol/L [facility] Chloride 105 97 - 110 mmol/L [facility] CO2 30 22 - 32 mmol/L [facility] Anion gap 5 2 - 15 mmol/L [facility] BUN 10 8 - 25 mg/dL [facility] Creatinine 0.66 0.60 - 1.10 mg/dL [facility] Glucose 133 70 - 199 mg/dL [facility] Comment: Interpretive Data Fasting glucose >/= [...] interpretive data was last revised 2017. Calcium 8.6 8.5 - 10.3 mg/dL [facility] Blood specimen (specimen) 2020 5:28 AM PRISON KEEPER 2020 5:46 AM PRISON KEEPER [facility] SENIOR TECHNICAL RECRUITER LAB BLOOD ORDERABLES Geovanna l Result Performing Organization Address [facility] de Phone Number [facility] [place] [place] [address] * aPTT (07/25/2020 2:04 PM PRISON KEEPER) aPTT 30 25 - 37 sec [facility] Comment: Interpretive data Heparin therapeutic range: 60-90 seconds Range based on correlation with therapeutic heparin activity range of 0.3-0.7 units/ml. Current interpretive data was last revised on 2019. Blood specimen (specimen) 07/25/2020 2:04 PM PRISON KEEPER 07/25/2020 2:04 PM PRISON KEEPER Result [facility] LAB BLOOD ORDERABLES Geovanna l Result Performing Organization Address [facility] de Phone Number [facility] [place] [place] [address] * Protime-INR (07/25/2020 2:04 PM PRISON KEEPER) PT 12.7 8.6 - 13.0 sec [facility] INR 1.2 0.8 - 1.2 [facility] Comment: Interpretive data Oral anticoagulant therapeutic ranges: Venous thromboembolism prophylaxis or treatment: 2.0-3.0 CARDIOLOGY Standard range: 2.0-3.0 High-intensity range: 2.5-3.5 Refer to indication-specific guidelines for appropriate target ranges for prosthetic heart valve replacement. Current interpretive data was last revised on 2019. Blood specimen (specimen) 07/25/2020 2:04 PM PRISON KEEPER 07/25/2020 2:04 PM PRISON KEEPER us Fayjae Acostacésar Leyva SENIOR TECHNICAL RECRUITER LAB BLOOD ORDERABLES Geovanna huynh Result [facility] Department [place] [address] * (ABNORMAL) Comprehensive metabolic panel (07/25/2020 2:04 PM PRISON KEEPER) Sodium 141 135 - 145 mmol/L [facility] Potassium, pl 3.4 3.3 - 4.9 mmol/L [facility] Chloride 105 97 - 110 mmol/L [facility] CO2 27 22 - 32 mmol/L [facility] Anion gap 9 2 - 15 mmol/L [facility] BUN 9 8 - 25 mg/dL [facility] Creatinine 0.70 0.60 - 1.10 mg/dL [facility] Glucose 129 70 - 199 mg/dL [facility] Comment: Interpretive Data Fasting glucose >/= [...] interpretive data was last revised 2017. Calcium 8.2(L) 8.5 - 10.3 mg/dL [facility] Bilirubin, total 0.4 0.1 - 1.2 mg/dL [facility] Protein, pl 5.3(L) 6.5 - 8.5 g/dL [facility] Albumin 3.1(L) 3.5 - 5.0 g/dL [facility] Alk phos 100 40 - 130 Units/L [facility] ALT 86(H) 7 - 45 Units/L [facility] AST 135(H) 10 - 45 Units/L [facility] Blood specimen (specimen) 07/25/2020 2:04 PM PRISON KEEPER 07/25/2020 2:04 PM PRISON KEEPER Result [facility] Fay Leyva SENIOR TECHNICAL RECRUITER LAB BLOOD ORDERABLES Geovanna l Result Performing Organization Address [facility] Co de Phone Number [facility] [place] [address] * (ABNORMAL) CBC without differential (07/25/2020 2:04 PM PRISON KEEPER) Pathologist [facility] WBC 8.2 3.8 - 9.9 K/cumm [facility] Hgb 11.0(L) 11.9 - 15.5 g/dL [facility] Hct 32.7(L) 35.6 - 45.5 % [facility] Plt 255 150 - 400 K/cumm [facility] MPV 9.8 9.1 - 12.3 fL [facility] RBC 3.83(L) 3.90 - 5.20 M/cumm [facility] MCV 85.4 81.3 - 96.4 fL [facility] MCH 28.7 27.1 - 33.3 pg [facility] MCHC 33.6 32.3 - 35.7 g/dL [facility] RDW CV 13.9 11.1 - 14.9 % [facility] RDW SD 43.5 35.7 - 48.1 fL [facility] NRBC abs 0.00 0.00 - 0.01 K/cumm [facility] Blood specimen (specimen) 07/25/2020 2:04 PM PRISON KEEPER 07/25/2020 2:04 PM PRISON KEEPER Fay Leyva SENIOR TECHNICAL RECRUITER LAB BLOOD ORDERABLES Geovanna l Result Performing Organization Address [facility]/ZIP Co de Phone Number [facility] [place] [address] * [place] Fluoroscopy < 1 Hour (07/25/2020 12:33 PM PRISON KEEPER) Narrative RAD_PACS_[facility] - 07/25/2020 12:34 PM PRISON KEEPER The images from this study are not interpreted by Radiology. ??Please refer to the physician's procedure / OR operative note. us Jeremy Michelle MD IMG FLUOROSCOPY PROC EDURES Final Result [facility]_PACS_[facility] * (ABNORMAL) POC Blood Gas and Chemistries, Arterial - (07/25/2020 10:09 AM PRISON KEEPER) pH, Art POC 7.43 7.35 - 7.45 [facility] pCO2, Art POC 39 35 - 45 mmHg [facility] pO2, Art POC 212(H) 83 - 108 mmHg [facility] Na, POC 139 135 - 145 mmol/L [facility] K POC 2.7(L) 3.3 - 4.9 mmol/L [facility] Comment: Interpretive Data Unable to assess hemolysis. ??Invitro hemolysis causes falsely elevated potassium. Current Interpretive Data was last revised on 2020. Cl, POC 104 97 - 110 mmol/L [facility] Ionized Ca, POC 4.57 4.50 - 5.10 mg/dL [facility] Glucose, POC 159 70 - 199 mg/dL [facility] Lactate, POC 0.8 0.7 - 2.2 mmol/L [facility] SO2 (alexsander) arterial 100(H) 90 - 95 % [facility] Base excess, POC 1.5 mmol/L [facility] HCO3, Art POC 26 20 - 30 mmol/L [facility] Hct, POC 36.0(L) 36.3 - 45.3 % [facility] O2 Sat, Art POC (Calc) 100 % [facility] Total Hb, POC 12.1 11.9 - 15.5 g/dL [facility] Blood specimen (specimen) 07/25/2020 10:09 AM PRISON KEEPER 07/25/2020 10:09 AM PRISON KEEPER us Jeremy Michelle MD LAB POCT ORDERABLES - DEVICE Final Result [facility] [place] [address] * Prepare RBC: 2 Units (07/25/2020 6:43 AM PRISON KEEPER) Product code [id number] [facility] Unit Number [id number] 7-Q KATIA NIEVES Product Blood Type ANEG KATIA NIEVES Dispense Status RETURNED KATIA NIEVES Product code [id number] KATIA NIEVES Unit Number [id number] 9-D KATIA CASTILLO Product Blood Type ANEG KATIA NIEVES Dispense Status RETURNED KATIA NIEVES Blood specimen (specimen) 07/25/2020 6:43 AM PRISON KEEPER 07/25/2020 6:43 AM PRISON KEEPER Narrative KATIA NIEVES - 2020 11:56 AM PRISON KEEPER Specify Procedure:->spine fusion T12-L4 Are special requirements needed? (all products are leukoreduced)->No Date required:-[id number] LRRBC # of [id number] Reasons:-Hold for procedure (specify procedure)} Estefania Melara MD BLOOD BANK PRODUCT ORDER ROBERT Final Result [facility] [place] [address] documented in this encounter Visit Diagnoses Diagnosis Acute low back pain- Primary Lumbago Dyslipidemia Other and unspecified hyperlipidemia Essential hypertension Unspecified essential hypertension Major depressive disorder, single episode, moderate (HCC) Major depressive disorder, single episode, moderate Acute low back pain, unspecified back pain laterality, unspecified whether sciatica present documented in this encounter Admitting Diagnoses Diagnosis Acute low back pain Lumbago documented in this encounter Administered Medications Inactive Administered Medications - up to 3 most recent administrations Medication Order MAR Action Action Date Dose Rate Site acetaminophen (TYLENOL) tablet 1,000 mg 1,000 mg, oral, Every 6 hours scheduled, First dose on Thu07/25/20 at 1800, Indications: PainIndications:Pain Given 07/29/2020 11:37 AM PRISON KEEPER 1,000 mg Given 07/29/2020 6:14 AM PRISON KEEPER 1,000 mg Given 07/28/2020 1:40 PM PRISON KEEPER 1,000 mg atorvastatin (LIPITOR) tablet 20 mg 20 mg, oral, Nightly, First dose on Thu07/25/20 at 2100, Indications: hyperlipidemiaIndications:hyperlipidemia Given 07/28/2020 9:23 PM PRISON KEEPER 20 mg Given 07/27/2020 8:12 PM PRISON KEEPER 20 mg Given 2020 8:12 PM PRISON KEEPER 20 mg baclofen (LIORESAL) tablet 10 mg 10 mg, oral, Every 8 hours scheduled, First dose on Thu07/25/20 at 1715, Indications: Muscle spasmIndications:Muscle spasm Given 07/29/2020 2:35 PM PRISON KEEPER 10 mg Given 07/29/2020 6:14 AM PRISON KEEPER 10 mg Given 07/28/2020 9:23 PM PRISON KEEPER 10 mg bisacodyL (DULCOLAX) suppository 10 mg 10 mg, rectal, Daily, First dose on Kat 07/26/20 at 0900, Indications: constipationIndications:constipati on Given 07/28/2020 8:24 AM PRISON KEEPER 10 mg caffeine tablet 100 mg 100 mg, oral, Daily PRN, headaches, migraine, Starting on Thu07/26/20 at 0844 dextrose 5% and sodium chloride 0.9% infusion (premix) 75 mL/hr, intravenous, Continuous, Starting on Thu07/25/20 at 1415, Phase I & Post-op Floor, Discontinue when tolerating PO (500 mL in 8 hours). New Bag 07/28/2020 6:10 AM PRISON KEEPER 75 mL/hr 75 mL/hr New Bag 2020 5:41 PM PRISON KEEPER 75 mL/hr 75 mL/hr New Bag 2020 5:31 AM PRISON KEEPER 75 mL/hr 75 mL/hr dilTIAZem XR (CARDIZEM CD,DILACOR XR) 24 hour capsule 180 mg 180 mg, oral, Daily, First dose on Thu07/26/20 at 0900, Do not crush, chew, cut, dissolve, open or otherwise manipulate tablet/capsule., Indications: prevention of anginal pain in coronary artery disease, HTNIndications:prevention of anginal pain in coronary artery disease,HTN Given 07/29/2020 7:51 AM PRISON KEEPER 180 mg Given 07/28/2020 8:24 AM PRISON KEEPER 180 mg Given 07/27/2020 8:50 AM PRISON KEEPER [address] (CYMBALTA) extended release capsule 60 mg 60 mg, oral, Every morning, First dose on Thu07/26/20 at 0900, Capsule may be opened and contents mixed with applesauce or apple juice ONLY. Do not crush, chew, cut, dissolve, open or otherwise manipulate tablet/capsule., Indications: Anxiety with DepressionIndications:Anxiety with Depression Given 07/29/2020 7:5 0 AM PRISON KEEPER 60 mg Given 07/28/2020 8:24 AM PRISON KEEPER 60 mg Given 07/27/2020 8:50 AM PRISON KEEPER 60 mg flecainide (TAMBOCOR) tablet 100 mg 100 mg, oral, 2 times daily, First dose on Thu07/26/20 at 0930 Given 07/29/2020 7:51 AM PRISON KEEPER 100 mg Given 07/28/2020 9:22 PM PRISON KEEPER 100 mg Given 07/28/2020 8:24 AM PRISON KEEPER 100 mg heparin 5,000 unit/mL injection 5,000 Units 5,000 Units, subcutaneous, Every 8 hours scheduled, First dose on Thu07/27/20 at 1400, Indications: Deep Vein Thrombosis PreventionIndications:Deep Vein Thrombosis Prevention Given 07/29/2020 2:37 PM PRISON KEEPER 5,000 Units Left Lower Abdomen Given 07/29/2020 6:14 AM PRISON KEEPER 5,000 Units L eft Upper Abdomen Given 07/28/2020 9:23 PM PRISON KEEPER 5,000 Units L eft Lower Abdomen HYDROmorphone (DILAUDID) injection 0.2 mg 0.2 mg, intravenous, Administer over 2 Minutes, Every 4 hours PRN, breakthrough pain, Starting on Thu07/27/20 at 1357 Given 07/27/2020 2:08 PM PRISON KEEPER 0.2 mg mineral oil (FLEET MINERAL OIL) enema 1 enema 1 enema, rectal, Once as needed, constipation, For constipation not relieved by miralax, oral medication or suppository, Starting on Thu07/28/20 at 1211, For 1 dose, Indications: constipationIndications:constipation montelukast (SINGULAIR) tablet 10 mg 10 mg, oral, Nightly, First dose on Thu07/25/20 at 2100, Indications: Seasonal Allergic RhinitisIndications:Seasonal Allergic Rhinitis Given 07/28/2020 9:23 PM PRISON KEEPER 10 mg Given 07/27/2020 8:12 PM PRISON KEEPER 10 mg Given 2020 8:12 PM PRISON KEEPER 10 mg multivit ytokrxvu-eqye-QS-calcium (THERA-M) tablet 1 tablet 1 tablet, oral, Daily, First dose on Kat 07/26/20 at 0900, Indications: Vitamin Deficiency PreventionIndications:Vitamin Deficiency Prevention Given 07/28/2020 8:24 AM PRISON KEEPER 1 tablet Given 07/27/2020 8:50 AM PRISON KEEPER 1 tablet Given 2020 9:43 AM PRISON KEEPER 1 tablet ondansetron (ZOFRAN) injection 4 mg 4 mg, intravenous, Administer over 2 Minutes, Every 6 hours PRN, nausea, vomiting, 1st line, Starting on Thu07/25/20 at 1632, Proceed to prochlorperazine if no relief within 30 minutes. Given 07/29/2020 7:16 AM PRISON KEEPER 4 mg Given 07/28/2020 5:18 PM PRISON KEEPER 4 mg Given 07/27/2020 1:57 PM PRISON KEEPER 4 mg oxyCODONE (ROXICODONE) tablet 5 mg 5 mg, oral, Every 4 hours PRN, 1st line for pain, Starting on Thu07/25/20 at 1632, Indications: PainIndications:Pain Given 07/29/2020 12:48 PM PRISON KEEPER 5 mg Given 07/29/2020 7:53 AM PRISON KEEPER 5 mg Given 07/29/2020 3:25 AM PRISON KEEPER 5 mg polyethylene glycol (MIRALAX) packet 17 g 17 g, oral, Daily PRN, constipation, Starting on Thu07/27/20 at 1358, Indications: constipationIndications:constipat ion Given by Other 07/28/2020 3:20 PM PRISON KEEPER 17 g senna-docusate (PERICOLACE) 8.6-50 mg per tablet 2 tablet 2 tablet, oral, 2 times daily, First dose on Thu07/25/20 at 2100, Hold for diarrhea., Indications: constipationIndications:constipat ion Given 07/28/2020 9:23 PM PRISON KEEPER 2 tablets Given 07/28/2020 8:24 AM PRISON KEEPER 2 tablets Given 07/27/2020 8:12 PM PRISON KEEPER 2 tablets sodium chloride 0.9 % irrigation As needed, Starting on Thu07/25/20 at 0941, Intra-Op Given 07/25/2020 9:41 AM PRISON KEEPER 1,000 mL Surgical Site sodium chloride 0.9% flush 0.5-20 mL 0.5-20 mL, intra-catheter, Every 8 hours scheduled, First dose on Thu07/25/20 at 1715, Flush volume based on line type and size. Given 07/29/2020 6:18 AM PRISON KEEPER 10 mL Given 07/28/2020 9:24 PM PRISON KEEPER 10 mL Given 07/28/2020 6:10 AM PRISON KEEPER 10 mL thrombin-recombinant 5,000 unit solution As needed, Starting on Thu07/25/20 at 0942, Intra-Op Given 07/25/2020 9:42 AM PRISON KEEPER 5,000 Units Surgical Site Given 07/25/2020 9:41 AM PRISON KEEPER 5,000 Units S urgical Site triamterene-hydroCHLOROthiazide (MAXZIDE,DYAZIDE) 37.5-25 mg per tablet/capsule 1 tablet/capsule 1 tablet/capsule, oral, Every morning, First dose on Kat 07/26/20 at 0900 Given 07/28/2020 8:24 AM PRISON KEEPER 1 tablet/capsule Given 07/27/2020 8:50 AM PRISON KEEPER 1 tablet/capsule Given 2020 9:43 AM PRISON KEEPER 1 tablet/capsule vancomycin (VANCOCIN) solution As needed, Starting on Thu07/25/20 at 1217, Intra-Op Given 07/25/2020 12:17 PM PRISON KEEPER 2,000 mg Surgical Site documented in this encounter Discontinued Medications Medication Sig Discontinue Reason Start Date End Da te cyclobenzaprine (FLEXERIL) 10 mg tabletIndications:Muscl e Spasm Take 10 mg by mouth nightly Stop Taking at Discharge 03/12/2020 07/29/2020 HYDROcodone-acetaminoph en (NORCO) 5-325 mg per tabletIndications:Pain Take 1 tablet by mouth every 6 (six) hours as needed for pain Stop Taking at Discharge 06/19/2020 07/29/2020 Eliquis 5 mg tabletIndications:atria l fibrillation Take 5 mg by mouth 2 (two) times a day Stop Taking at Discharge 06/29/2020 07/29/2020 documented as of this encounter Active and Recently Administered Medications Times are shown in PRISON KEEPER. Scheduled Medication Order 07/27/2020 07/28/2020 07/29/2020 acetaminophen (TYLENOL) tablet 1,000 mg 1,000 mg, oral, Every 6 hours scheduled, First dose on Thu07/25/20 at 1800, Indications: Pain 0623 (Given - Provider: Dung Plaza RN)1147 (Given - Provider: Tootie Polanco RN)1731 (Given - Provider: Tootie Polanco RN)2302 (Not Given - Provider: Dung Plaza RN - Reason: Patient/family refused) 0610 (Given - Provider: Dung Plaza RN)1340 (Given - Provider: Pamela Rondon RN)1718 (Not Given - Provider: Pamela Rondon RN - Reason: Patient/family refused)2348 (Not Given - Provider: Dung Plaza RN - Reason: Patient/family refused) 0614 (Given - Provider: Dung Plaza RN)1137 (Given - Provider: Pamela Rondon RN) atorvastatin (LIPITOR) tablet 20 mg 20 mg, oral, Nightly, First dose on Thu07/25/20 at 2100, Indications: hyperlipidemia 2012 (Given - Provider: Dung Plaza RN) 2123 (Given - Provider: Dung Plaza RN) baclofen (LIORESAL) tablet 10 mg 10 mg, oral, Every 8 hours scheduled, First dose on Thu07/25/20 at 1715, Indications: Muscle spasm 0623 (Given - Provider: Dung Plaza RN)1505 (Not Given - Provider: Tootie Polanco RN - Reason: Other - Comment: low BP)2257 (Given - Provider: Dung Plaza RN) 0610 (Given - Provider: Dung Plaza RN)1340 (Given - Provider: Pamela Rondon RN)2123 (Given - Provider: Dung Plaza RN) 0614 (Given - Provider: Dung Plaza RN)1435 (Given - Provider: Pamela Rondon RN) bisacodyL (DULCOLAX) suppository 10 mg 10 mg, rectal, Daily, First dose on Thu07/26/20 at 0900, Indications: constipation 0850 (Not Given - Provider: Tootie Polanco RN - Reason: Patient/family refused) 0824 (Given - Provider: Pamela Rondon RN) 1016 (Not Given - Provider: Pamela Rondon RN - Reason: Patient/family refused) dilTIAZem XR (CARDIZEM CD,DILACOR XR) 24 hour capsule 180 mg 180 mg, oral, Daily, First dose on Thu07/26/20 at 0900, Do not crush, chew, cut, dissolve, open or otherwise manipulate tablet/capsule., Indications: prevention of anginal pain in coronary artery disease, HTN 0850 (Given - Provider: Tootie Polanco RN) 0824 (Given - Provider: Pamela Rondon RN) 0751 (Given - Provider: Pamela Rondon RN) DULoxetine DR (CYMBALTA) extended release capsule 60 mg 60 mg, oral, Every morning, First dose on Thu07/26/20 at 0900, Capsule may be opened and contents mixed with applesauce or apple juice ONLY. Do not crush, chew, cut, dissolve, open or otherwise manipulate tablet/capsule., Indications: Anxiety with Depression 0850 (Given - Provider: Tootie Polanco RN) 0824 (Given - Provider: Pamela Rondon RN) 0750 (Given - Provider: Pamela Rondon RN) flecainide (TAMBOCOR) tablet 100 mg 100 mg, oral, 2 times daily, First dose on Thu07/26/20 at 0930 0850 (Given - Provider: Tootie Polanco RN)2011 (Given - Provider: Dung Plaza, MEDINA) 0824 (Given - Provider: Pamela Rondon RN)2121 (Given - Provider: Dung Plaza, MEDINA) 0751 (Given - Provider: Pamela Rondon RN) heparin 5,000 unit/mL injection 5,000 Units 5,000 Units, subcutaneous, Every 8 hours scheduled, First dose on Thu07/27/20 at 1400, Indications: Deep Vein Thrombosis Prevention 1457 (Given - Provider: Tootie Polanco RN)2257 (Given - Provider: Dung Plaza RN) 0610 (Given - Provider: Dung Plaza, MEDINA)1340 (Given - Provider: Pamela Rondon RN)2122 (Given - Provider: Dung Plaza RN) 0614 (Given - Provider: Dung Plaza RN)1437 (Given - Provider: Pamela Rondon, MEDINA) montelukast (SINGULAIR) tablet 10 mg 10 mg, oral, Nightly, First dose on Thu07/25/20 at 2100, Indications: Seasonal Allergic Rhinitis 2011 (Given - Provider: Dung Plaza RN) 2122 (Given - Provider: Dung Plaza RN) multivit mcmdrlsk-fqlo-WO-calcium (THERA-M) tablet 1 tablet 1 tablet, oral, Daily, First dose on Thu07/26/20 at 0900, Indications: Vitamin Deficiency Prevention 0850 (Given - Provider: Tootie Polanco RN) 0824 (Given - Provider: Pamela Rondon RN) 0751 (Hold - Provider: Pamela Rondon RN - Reason: Patient/family refused) senna-docusate (PERICOLACE) 8.6-50 mg per tablet 2 tablet 2 tablet, oral, 2 times daily, First dose on Thu07/25/20 at 2100, Hold for diarrhea., Indications: constipation 0850 (Given - Provider: Tootie Polanco RN)2011 (Given - Provider: Dung Plaza RN) 0824 (Given - Provider: Pamela Rondon RN)2122 (Given - Provider: Dung Plaza, MEDINA) 1016 (Not Given - Provider: Pamela Rondon RN - Reason: Patient/family refused) sodium chloride 0.9% bolus 750 mL (COMPLETED) 750 mL, intravenous, Once, On Thu07/27/20 at 1545, For 1 dose 1513 (New Bag - Provider: Tootie Polanco RN) sodium chloride 0.9% flush 0.5-20 mL 0.5-20 mL, intra-catheter, Every 8 hours scheduled, First dose on Thu07/25/20 at 1715, Flush volume based on line type and size. 0622 (Not Given - Provider: Dung Plaza RN - Reason: IV Infusing)1504 (Not Given - Provider: Tootie Polanco RN - Reason: Other - Comment: pt has fluids going)2302 (Not Given - Provider: Dung Plaza RN - Reason: IV Infusing) 0610 (Given - Provider: Dung Plaza RN)1520 (Hold - Provider: Pamela Rondon RN - Reason: IV Infusing)2124 (Given - Provider: Dung Plaza RN) 0618 (Given - Provider: Dung Plaza RN)1400 (Due) triamterene-hydroCHLOROth iazide (MAXZIDE,DYAZIDE) 37.5-25 mg per tablet/capsule 1 tablet/capsule 1 tablet/capsule, oral, Every morning, First dose on Thu07/26/20 at 0900 0850 (Given - Provider: Tootie Polanco RN) 0824 (Given - Provider: Pamela Rondon RN) 0751 (Not Given - Provider: Pamela Rondon RN - Reason: Patient/family refused) Continuous Medication Order 07/27/2020 07/28/2020 07/29/2020 dextrose 5% and sodium chloride 0.9% infusion (premix) 75 mL/hr, intravenous, Continuous, Starting on Thu07/25/20 at 1415, Phase I & Post-op Floor, Discontinue when tolerating PO (500 mL in 8 hours). 0610 (New Bag - Provider: Dung Plaza RN) PRN Medication Order 07/27/2020 07/28/2020 07/29/2020 ALPRAZolam (XANAX) tablet 0.5 mg 0.5 mg, oral, Nightly PRN, anxiety, Starting on Thu07/25/20 at 1632, Indications: anxiety, dissiness caffeine tablet 100 mg 100 mg, oral, Daily PRN, headaches, migraine, Starting on Kat 07/26/20 at 0844 diphenhydrAMINE (BENADRYL) tab/cap 25 mg 25 mg, oral, Every 6 hours PRN, itching, Starting on Thu07/25/20 at 1632, Indications: Urticaria HYDROmorphone (DILAUDID) injection 0.2 mg 0.2 mg, intravenous, Administer over 2 Minutes, Every 4 hours PRN, breakthrough pain, Starting on Thu07/27/20 at 1357 1408 (Given - Provider: Tootie Polanco, MEDINA) mineral oil (FLEET MINERAL OIL) enema 1 enema 1 enema, rectal, Once as needed, constipation, For constipation not relieved by miralax, oral medication or suppository, Starting on Thu07/28/20 at 1211, For 1 dose, Indications: constipation naloxone (NARCAN) 0.4 mg/mL injection 0.04-0.4 mg 0.04-0.4 mg, intravenous, Every 10 min PRN, other, excessive sedation/respiratory depression, Starting on Thu07/25/20 at 1632, Phase I & Post-op Floor, Dilute 0.4 mg with 9 mL NS (final concentration 0.04 mg/mL). For respiratory depression (respiratory rate less than 6), administer 0.4 mg IVP over 30 seconds. For excessive sedation administer 0.04 mg (1 mL) every 1 minute until desired level of alertness. Stop FURNACE PUNCHER and notify covering MD. This order has been ordered with FURNACE PUNCHER infusion, please review upon the discontinuation of FURNACE PUNCHER. For IV, administer over 30 seconds., Indications: Opioid Toxicity ondansetron (ZOFRAN) injection 4 mg 4 mg, intravenous, Administer over 2 Minutes, Every 6 hours PRN, nausea, vomiting, 1st line, Starting on Thu07/25/20 at 1632, Proceed to prochlorperazine if no relief within 30 minutes. 1357 (Given - Provider: Precious Love, MEDINA) 1718 (Given - Provider: Pamela Rondon RN) 0716 (Given - Provider: Dugn Plaza, MEDINA) oxyCODONE (ROXICODONE) tablet 5 mg 5 mg, oral, Every 4 hours PRN, 1st line for pain, Starting on Thu07/25/20 at 1632, Indications: Pain 0149 (Given - Provider: Dung Plaza, MEDINA)0623 (Given - Provider: Dung Plaza RN)1020 (Given - Provider: Tootie Polanco, MEDINA)1513 (Given - Provider: Tootie Polanco RN - Comment: ok to give per Dr. Brooks)1919 (Given - Provider: Tootie Polanco RN)2257 (Given - Provider: Dung Plaza, MEDINA) 0610 (Given - Provider: Dung Plaza, MEDINA)1000 (Given - Provider: Pamela Rondon RN)2123 (Given - Provider: Dung Plaza RN) 0325 (Given - Provider: Dung Plaza, MEDINA)0753 (Given - Provider: Pamela Rondon, MEDINA)1248 (Given - Provider: Pamela Rondon RN) polyethylene glycol (MIRALAX) packet 17 g 17 g, oral, Daily PRN, constipation, Starting on Thu07/27/20 at 1358, Indications: constipation 1520 (Given by Other - Provider: Pamela Rondon RN) prochlorperazine (COMPAZINE) injection 10 mg 10 mg, intravenous, Administer over 2 Minutes, Every 6 hours PRN, nausea, vomiting, 2nd line, Starting on Thu07/25/20 at 1632, If not relieved by ondansetron within 30 minutes. sodium chloride 0.9% flush 0.5-20 mL 0.5-20 mL, intra-catheter, As needed, line care, Starting on Thu07/25/20 at 1632, Flush volume based on line type and size. Flush before and after each use. documented in this encounter Orders Medications Ordered That Tyrone ht Not Have Been Administered Count Last Ordered Date First Ordered Date mineral oil (FLEET MINERAL O [place]) enema 1 enema 1 07/28/2020 heparin 5,000 unit/mL inject ion 5,000 Units 1 07/27/2020 HYDROmorphone (DILAUDID) injection 0.2 mg 2 07/27/2020 polyethylene glycol (MIRALAX) packet 17 g 1 07/27/2020 sodium chloride 0.9% bolus 750 mL 1 021 caffeine tablet 100 mg 1 2020 flecainide (TAMBOCOR) tablet 100 mg 1 07/26 acetaminophen (TYLENOL) tablet 1,000 mg 1 1 acetaminophen (TYLENOL) tablet 500 mg 1 acetaminophen (TYLENOL) tablet 975 mg 1 ALPRAZolam (XANAX) tablet 0.5 mg 1 07/25/20 atorvastatin (LIPITOR) tablet 20 mg 1 07/25 aztreonam (AZACTAM) 2,000 mg /20 mL in sterile water (premix) 2,000 mg 1 07/25/2020 baclofen (LIORESAL) tablet 10 mg 1 07/25/20 20 bisacodyL (DULCOLAX) suppository 10 mg 1 ceFAZolin (ANCEF) 100 mg/mL sterile water 1,000 mg 2 07/25/2020 dextrose 5% and sodium chlor josephine 0.9% infusion (premix) 1 07/25/2020 dilTIAZem XR (CARDIZEM CD,DI LACOR XR) 24 hour capsule 180 mg 1 07/25/2020 diphenhydrAMINE (BENADRYL) tab/cap 25 mg 1 07/25/[address] (CYMBALTA) ext ended release capsule 60 mg 1 07/25/2020 gabapentin (NEURONTIN) capsule 300 mg 1 haloperidol (HALDOL) injection 1 mg 1 07/25 HYDROmorphone (DILAUDID) injection 0.5 mg 1 07/25/2020 HYDROmorphone in 0.9% sodium chloride (DILAUDID) 20 mg/100 mL (0.2 mg/mL) cassette (premix) 1 07/25/2020 Lactated Ringer's (LR) infusion 1 0 lidocaine PF (XYLOCAINE) 10 mg/mL (1 %) preservative free injection 2-10 mg 1 07/25/2020 montelukast (SINGULAIR) tablet 10 mg 1 06/28 multivit uyehvkkd-ivgq-XQ-ca lcium (THERA-M) tablet 1 tablet 1 07/25/2020 naloxone (NARCAN) 0.4 mg/mL injection 0.04-0.4 mg 2 07/25/2020 ondansetron (ZOFRAN) injection 4 mg 1 07/25 oxyCODONE (ROXICODONE) tablet 5 mg 1 2019 prochlorperazine (COMPAZINE) injection 10 mg 1 07/25/2020 senna-docusate (PERICOLACE) 8.6-50 mg per tablet 2 tablet 1 07/25/2020 sodium chloride 0.9% flush 0.5-20 mL 3 06/28 tiZANidine (ZANAFLEX) tablet 4 mg 1 020 triamterene-hydroCHLOROthiaz josephine (MAXZIDE,DYAZIDE) 37.5-25 mg per tablet/capsule 1 tablet/capsule 1 07/25/2020 vancomycin 1,000 mg/200 mL i n dextrose 5% (premix) 1,000 mg 2 07/25/2020 Nursing Count Last Ordered Date First Orde red Date DISCHARGE ACTIVITY 6 07/29/2020 DISCHARGE CALL PROVIDER 2 07/29/2020 DISCHARGE DRESSING 4 07/29/2020 DISCHARGE INSTRUCTIONS 5 07/29/2020 CORE MEASURES Count Last Ordered Date First Ord ered Date REASON FOR NO VTE PROPHYLAXI S - HOSPITAL ADMISSION - MEDICATIONS 1 07/25/2020 documented in this encounter Care Teams Nonfarm Animal Caretaker Relationship Specialty Start Date End Date Enmanuel Gan MD [address] [facility] [address] [place] [address] PCP - General Internal Medicine 04/26/20 Tg Houston MD [address] [facility] [address] [place] [address] Consulting Physician Cardiology 07/18/20 documented as of this encounter
--- OUTSIDE RECORDS SUMMARY | 2024-07-12 08:54 | XMS_ITS | Encounter Summary ---
Author Organization [facility] Address [address] [place] [address] Phone Care Team Providers Care Computer Programming Manager Name Role Phone Enmanuel Gan MD Primary Care Provider [phone] Tg Houston MD Unavailable [phone] Encounter Details Date Type Department Care Team (Late st Contact Info) Description 07/18/2020 Telephone [facility] Orthopaedic Surgery [address] [facility] Advanced Medicine 6th [place] [address] [place] [address] Jeremy Michelle MD [address] [facility] [address] [place] [address] Social History Tobacco Use Types Packs/Day Years Used Date Smoking Tobacco: Never Smokeless Tobacco: Never Alcohol Use Standard Drinks/Week Comments Yes 5 (1 standard drink = 0.6 oz pur e alcohol) Comments No Sex and Gender Information Value Date Recorded Sex Assigned at Not on file Legal Sex Female 9:09 PM DIFFUSION FURNACE OPERATOR Gender Identity Not on file Sexual Orientation Lesbian 05/24/2019 9: 06 AM CDT documented as of this encounter Miscellaneous Notes * Telephone Encounter - Cyndie Byers RN - 07/18/2020 5:30 PM DIFFUSION FURNACE OPERATOR Spoke with patient about clearance and testing. Clearance from cardiology perspective in Dr. Tg Robertson note from 07/16/20. USION FURNACE OPERATOR documented in this encounter Plan of Treatment Not on file documented as of this encounter Visit Diagnoses Not on filedocumented in this encounter Care Teams Computer Programming Manager Relationship Specialty Start Date End Date Enmanuel Gan MD [address] [facility] [address] [place], [place] [id number] PCP - General Internal Medicine 04/26/20 Tg Houston MD [address] [facility] [address] [place] [address] Consulting Physician Cardiology 07/18/20 documented as of this encounter
--- OUTSIDE RECORDS SUMMARY | 2024-07-12 08:54 | XMS_ITS | Encounter Summary ---
Author Organization [facility] Address [address] [place] [address] Phone Care Team Providers Care Director Of Annual Giving Name Role Phone Enmanuel Gan MD Primary Care Provider [phone] Tg Houston MD Unavailable Karlie Hernandez RN Unavailable [phone] Encounter Details Date Type Department Care Team (Late st Contact Info) Description 08/06/2020 Telephone [facility] Orthopaedic Surgery [address] [facility] 6th [place] [address] [place] [address] Jeremy Michelle MD [address] [facility] [address] [place] [address] Social History Tobacco Use Types Packs/Day Years [...] How often do you attend [facility] or confucianism services? Never 07/30/2020 Do you belong to any clubs o r organizations such as sikhism groups, unions, fraternal or athletic groups, or [...] on file Legal Sex Female 9:09 PM STATION ATTENDANT Gender Identity Not on file Sexual Orientation Lesbian 05/24/2019 9: 06 AM CDT documented as of this encounter Miscellaneous Notes * Telephone Encounter - Cyndie Byers RN - 08/06/2020 9:29 AM STATION ATTENDANT Returned call to patient left on Thursday about pain medication and patient states it was taken care of. Reviewed pain protocol. Patient verbalized understanding. ION ATTENDANT documented in this encounter Plan of Treatment Not on file documented as of this encounter Visit Diagnoses Not on filedocumented in this encounter Care Teams Director Of Annual Giving Relationship Specialty Start Date End Date Enmanuel Gan MD [address] [place] [address] PCP - General Internal Medicine 04/26/20 Tg Houston MD [address] [place] [address] Consulting Physician Cardiology 07/18/20 aKrlie Hernandez, RN [address] [facility] [address] [place] [address] [employer] Outpatient Pets Salesperson 07/30/20 08/27/20 documented as of this encounter
--- OUTSIDE RECORDS SUMMARY | 2024-07-12 08:54 | XMS_ITS | Encounter Summary ---
Author Organization [facility] Address [address] [place] [address] Care Team Providers Care Bumboater Name Role Phone Enmanuel Gan MD Primary Care Provider [phone] Tg Houston MD Unavailable [phone] Karlie Hernandez RN Unavailable [phone] Encounter Details Date Type Department Care Team (Late st Contact Info) Description 08/04/2020 Orders Only Orthopaedic Surgery Hector Borrero MD [address] [facility] [address] [place] [address] Social History Tobacco Use Types Packs/Day Years [...] on file Legal Sex Female 9:09 PM MUSIC MINISTRIES DIRECTOR Gender Identity Not on file Sexual Orientation Lesbian 05/24/2019 9: 06 AM CDT documented as of this encounter Plan of Treatment Not on file documented as of this encounter Visit Diagnoses Not on filedocumented in this encounter Care Teams Bumboater Relationship Specialty Start Date End Date Enmanuel Gan MD [address] [place] [address] PCP - General Internal Medicine 04/26/20 Tg Houston MD [address] [place] [address] Consulting Physician Cardiology 07/18/20 Karlie Hernandez RN [address] [place] [address] SHOP Outpatient Screw Machine Operator 07/30/20 08/27/20 documented as of this encounter
--- OUTSIDE RECORDS SUMMARY | 2024-07-12 08:54 | XMS_ITS | Encounter Summary ---
Author Organization [facility] Address [address] [place] [address] Phone Care Team Providers Care Pigment Processor Name Role Phone Enmanuel Gan MD Primary Care Provider [phone] Tg Houston MD Unavailable Karlie Hernandez RN Unavailable [phone] Encounter Details Date Type Department Care Team (Late st Contact Info) Description 08/14/2020 2:30 PM EXTRUSION DIE TEMPLATE MAKER Office Visit [facility] Orthopaedic Surgery [facility] [address]th [place] [address] [place] [address] Jeremy Michelle MD [facility] [address] [place] [address] Follow-up examination following surgery (Primary Dx) Social [...] on file Legal Sex Female 9:09 PM EXTRUSION DIE TEMPLATE MAKER Gender Identity Not on file Sexual Orientation Lesbian 05/24/2019 9: 06 AM CDT documented as of this encounter Patient Instructions * Patient Instructions* Cyndie Byers RN - 08/14/2020 2:30 PM EXTRUSION DIE TEMPLATE MAKER Thank you for your visit today we are pleased to be here to assist with your spine needs. Sincerely, Dr. Jeremy Michelle & Cyndie Byers RN Please contact Dr. Miguel Angel [facility] Nurse if you have any questions. USION DIE TEMPLATE MAKER documented in this encounter Progress Notes * Jeremy Michelle MD - 08/14/2020 2:30 PM CST She is doing great now 3 weeks out from revision L1 to 4 posterior spinal instrumented fusion. She has some decreased sensation on either side of the incision which is not totally unexpected but otherwise is doing great. On my exam today she remains intact C5-T1 and L2 through S1 bilaterally. She has 5/5 throughout and is sensory intact to light touch throughout. Incision is well healed with somescabbing around the waistline. No new imaging today. We went over restrictions and reviewed things today. We are going to see her back in 3-4 weeks for upright lumbar AP and lateral. Jeremy Michelle MD PhD Attending Spine Surgeon Professor Of Engineering of Orthopaedic and Neurological Surgery [facility] Orthopaedics [facility] ] USION DIE TEMPLATE MAKER documented in this encounter Plan of Treatment Not on file documented as of this encounter Visit Diagnoses Diagnosis Follow-up examination following surgery- Primary documented in this encounter Discontinued Medications Medication Sig Discontinue Reason Start Date End Da te fexofenadine (THELMA) 180 mg tabletIndications:Season al Allergic Rhinitis Take 180 mg by mouth daily as needed 08/14/2020 documented as of this encounter Care Teams Pigment Processor Relationship Specialty Start Date End Date Enmanuel Gan MD [address] [place] [address] PCP - General Internal Medicine 04/26/20 Tg Houston MD [address] [place] [address] Consulting Physician Cardiology 07/18/20 Karlie Hernandez, RN [address] [facility] [address] [place] [address] [employer]OP Outpatient Merchandise Shopper 07/30/20 08/27/20 documented as of this encounter
--- OUTSIDE RECORDS SUMMARY | 2024-07-12 08:54 | XMS_ITS | Encounter Summary ---
Author Organization [facility] Healthcare Address [address] [place] [address] Care Team Providers Care Loan Underwriter Name Role Phone Enmanuel Gan MD Primary Care Provider [phone] Tg Houston MD Unavailable [phone] Encounter Details Date Type Department Care Team (Latest Contact Info) Description 07/25/2020 6:28 AM BOILER HOUSE SUPERVISOR - 07/29/2020 5:49 PM [facility] Hospital Encounter [facility] [address] [place] [address] Jeremy Michelle MD [address] [place] [address] Discharge Disposition: Discharge to home or self [...] week 07/30/2020 How often do you attend [facility] or zoroastrian services? Never 07/30/2020 Do you [...] on file Legal Sex Female 9:09 PM BOILER HOUSE SUPERVISOR Gender Identity Not on file Sexual Orientation Lesbian 05/24/2019 9: 06 AM CDT documented as of this encounter Last Filed Vital Signs Vital Sign Reading Time Taken Comments Blood Pressure 109/43 07/29/2020 11:18 AM BOILER HOUSE SUPERVISOR Pulse 68 07/29/2020 11:18 AM BOILER HOUSE SUPERVISOR Temperature 36.6 ??C (97.9 ??F) 07/29/2020 11:[address] Respiratory Rate 16 07/29/2020 11:18 AM BOILER HOUSE SUPERVISOR Oxygen Saturation 90% 07/29/2020 11:18 AM BOILER HOUSE SUPERVISOR Inhaled Oxygen Concentration - - Weight 78 kg (172 lb) 07/25/2020 5:30 PM BOILER HOUSE SUPERVISOR Height 163.8 cm (5' 4.5 ) 07/25/2020 5:30 PM BOILER HOUSE SUPERVISOR Body Mass Index 29.07 07/25/2020 5:30 PM BOILER HOUSE SUPERVISOR documented in this encounter Discharge Diagnoses Diagnosis Dislocation of other internal joint prosthesis, initial encounter (HCC) - DISLOCATION OF OTHER INTERNAL JOINT PROSTHESIS, INITIAL ENCOUNTER Major depressive disorder, single episode, moderate (HCC) - MAJOR DEPRESSIVE DISORDER, SINGLE EPISODE, MODERATE Major depressive disorder, single episode, moderate Accidental puncture or laceration of dura during a procedure - ACCIDENTAL PUNCTURE OR LACERATION OF DURA DURING A PROCEDURE Pseudarthrosis after fusion or arthrodesis - PSEUDARTHROSIS AFTER FUSION OR ARTHRODESIS Arthrodesis status Spinal stenosis, lumbar region with neurogenic claudication - SPINAL STENOSIS, LUMBAR REGION WITH NEUROGENIC CLAUDICATION Radiculopathy, lumbar region - RADICULOPATHY, LUMBAR REGION Thoracic or lumbosacral neuritis or radiculitis, unspecified Family history of ischemic heart disease and other diseases of the circulatory system - FAMILY HISTORY OF ISCHEMIC HEART DISEASE AND OTHER DISEASES OF THE CIRCULATORY SYSTEM Hyperlipidemia, unspecified - HYPERLIPIDEMIA, UNSPECIFIED Meniere's disease, unspecified ear - M??NI??RE'S DISEASE, UNSPECIFIED EAR Essential (primary) hypertension - ESSENTIAL (PRIMARY) HYPERTENSION Unspecified essential hypertension Unspecified atrial fibrillation (HCC) - UNSPECIFIED ATRIAL FIBRILLATION Acquired absence of other specified parts of digestive tract - ACQUIRED ABSENCE OF OTHER SPECIFIED PARTS OF DIGESTIVE TRACT Allergy status to sulfonamides - ALLERGY STATUS TO SULFONAMIDES Allergy status to other drugs, medicaments and biological substances - ALLERGY STATUS TO OTHER DRUGS, MEDICAMENTS AND BIOLOGICAL SUBSTANCES Presence of unspecified artificial hip joint - PRESENCE OF UNSPECIFIED ARTIFICIAL HIP JOINT Angina pectoris, unspecified (HCC) - ANGINA PECTORIS, UNSPECIFIED Other surgical procedures as the cause of abnormal reaction of the patient, or of later complication, without mention of misadventure at the time of the procedure - OTHER SURGICAL PROCEDURES THE CAUSE OF ABNORMAL REACTION OF THE PATIENT, OR OF LATER COMPLICATION Operating room of hospital as the place of occurrence of the external cause - OPERATING ROOM OF HOSPITAL THE PLACE OF OCCURRENCE OF THE EXTERNAL CAUSE documented in this encounter Discharge Summaries * Jayda Hankins MD - 07/29/2020 12:23 PM CST Inpatient Discharge Summary BRIEF OVERVIEW Admitting Provider: Jeremy Michelle MD Discharge Provider: Jeremy Michelle MD Primary Care Physician at Discharge: Enmanuel Gan MD [phone] Admission Date: 07/25/2020 Discharge Date: 07/29/2020 Admission Location: [facility] Problems/Diagnoses: Principal Problem: Acute low back pain [...] says it's OK. -Do not do any bureau chief that cause you to twist, push or [...] Department Center 08/10/2020 9:30 AM Newton Pierson, TONIA OY CAM 11A OY 08/10/2020 1:00 PM [...] OY 01/14/2021 1:45 PM Tg Houston MD [facility] MG Decent 04/15/2021 2:15 PM Iwona Herron Au.D. AUD CAM 11A OY 04/15/2021 3:00 PM Darshana Toth MD CLN CAM 11A OY Cosigned by Jeremy Michelle MD at 08/01/2020 9:56 AM BOILER HOUSE SUPERVISOR ER HOUSE SUPERVISOR ER HOUSE SUPERVISOR documented in this encounter Discharge Instructions * Discharge Instructions* Jayda Hankins MD - 07/29/2020 12:23 PM BOILER HOUSE SUPERVISOR POSTOPERATIVE INSTRUCTIONS FOR POSTERIOR SPINE FUSION 1. [...] above your head. Do not do any bureau chief like laundry or vacuuming that may cause [...] during normal business hours (M-F 8-4:30) at [phone] or after hours at the exchange at [phone] or [phone]. 7. MEDICATIONS: Adjustments may have been made [...] your surgeon, your surgeons nurse, or an COMPOUNDER [employer] approximately six weeks after your surgery. Please call [phone] if you need to change an appointment. ER HOUSE SUPERVISOR documented in this encounter Medications at [...] RN - 07/29/2020 2:57 PM CST 07/29/20 3977 Discharge Summary Chart reviewed For Medical Necessity [...] identified and pt. Agrees with the plan. ER HOUSE SUPERVISOR * Tootie Howell RN - 07/29/2020 2:55 PM CST CM Initial Assessment Interview Note Information Obtained From: Patient (07/29/20 8393) Admission Source: Non Health Care Facility Point [...] transportation home when discharged. Health Insurance Coverage: [facility] [employer] Prescription Coverage: Yes Pharmacy: [facility] Primary Care Provider: Enmanuel Gan MD Prior to Admission: Primary Caregiver: Self Support System: Spouse/Significant Other Support system contact info (name, phone, availablity): Sunita Miranda (spouse) [phone] Home Care Services: No Durable Medical Equipment: [...] Collaboration with patient, MD, direct care nurse, Commission Sales Associate, Nurse Coordinator and other members of the health care team to assure needed interventions completed. 2. Return patient to optimal level of self-care post discharge. 3. Balance Wheel Hand Filer will follow for Discharge Planning - interventions [...] with the aftercare plan. Tootie Howell RN ER HOUSE SUPERVISOR * Jayda Hankins MD - 07/29/2020 9:03 [...] extension 5/5 5/5 Wrist flexion 5/5 5/5 Sustainability Analyst 5/5 5/5 Interosseous of hand 5/5 5/5 [...] Hankins MD at 07/28/2020 1151 --Drains HVac 45/ Imaging Post op Scoliosis XRs completed: instrumentation [...] the appropriate orthopaedic surgery team, please use [email or web address] to page resident directly. ?? If you have questions overnight or can't reach the appropriate resident, please call the Orthopaedic Surgery Consult Pager [phone] to have your questions answered or be directed to the correct Orthopaedic Surgery resident. Jayda Lopez MD Orthopaedic Surgery Resident, PGY-5 ER HOUSE SUPERVISOR * Belkis Hernández MD - 07/29/2020 4:49 AM CST Called to bedside to evaluate patient is surgical wounds, giving concern for fluctuance/hematoma onnursing exam. On my exam, there was no evidence of hematoma, there was some scant fluctuance at thesuperior aspect of the surgical incision, without expressible drainage. Will continue to monitor. Yanet Hernández MD Orthopedic Surgery PGY-9 ER HOUSE SUPERVISOR * Jeremy Michelle MD - 07/28/2020 7:02 [...] Jeremy Michelle MD PhD Attending Spine Surgeon Ship Rigger of Orthopaedic and Neurological Surgery [facility] Orthopaedics [facility] at [facility] ER HOUSE SUPERVISOR * Jayda Hankins MD - 07/28/2020 10:47 [...] extension 5/5 5/5 Wrist flexion 5/5 5/5 Sustainability Analyst 5/5 5/5 Interosseous of hand 5/5 5/5 [...] the appropriate orthopaedic surgery team, please use [email or web address] to page resident directly. ?? If you have questions overnight or can't reach the appropriate resident, please call the Orthopaedic Surgery Consult Pager [phone] to have your questions answered or be directed to the correct Orthopaedic Surgery resident. Jayda Lopez MD Orthopaedic Surgery Resident, PGY-5 ER HOUSE SUPERVISOR * Kathryn Wei, PT - 07/28/2020 8:22 [...] Therapy Prior Function Prior Function Level of [place]: Independent with ADLs, Independent functional transfers, Independent with ambulation(with WW) Lives With: Spouse Receives Help From: Spouse/Significant other(cheesemaking laborer assist available) Fall within the last 6 [...] Physical Therapy) Active Problems Not on file ER HOUSE SUPERVISOR * Gabbie Joy, PT - 07/27/2020 8:04 AM CST Physical Therapy 07/27/20 0800 General PT Missed Visit Reason Bedrest ER HOUSE SUPERVISOR * Ashley Nagy OT - 07/27/2020 8:04 AM CST Occupational Therapy 07/27/20 0804 General OT Missed Visit Reason Bedrest ER HOUSE SUPERVISOR * Clarence Brooks MD - 07/27/2020 5:50 AM CST Orthopaedic Surgery Spine Progress Note July 27, 2020 5:50 AM Macie Briseno (1945) [id number] Ortho Spine Primary 75 y.o. female with [...] + Flatus - Pain controlled, not pressing YARDER OPERATOR Objective - AFVSS on 2L NC - [...] extension 5/5 5/5 Wrist flexion 5/5 5/5 Sustainability Analyst 5/5 5/5 Interosseous of hand 5/5 5/5 [...] PT progress: OT/PT ordered Pain control: Dilaudid form builder helper (DC today) , oxycodone prn, tylenol, baclofen, [...] the appropriate orthopaedic surgery team, please use [employer] to page resident directly. ?? If you have questions overnight (after 1800) or can't reach the appropriate resident, please call the Orthopaedic Main Consult pager at [phone] to have your questions answered or be directed to the correct Orthopaedic Surgery resident. Clarence Brooks MD Department of Orthopaedic Surgery PGY2 [facility] in [facility] [phone] ER HOUSE SUPERVISOR * Jeremy Michelle MD - 2020 4:37 PM CST Patient doing well POD1 from revision L1-4 PSIF with decompression. Comfortable. Doing great overall with switch from YARDER OPERATOR to oxy. No headaches on progression to [...] Jeremy Michelle MD PhD Attending Spine Surgeon Ship Rigger of Orthopaedic and Neurological Surgery [facility] Orthopaedics [facility] at [facility] ER HOUSE SUPERVISOR * Karina Quevedo, PT - 2020 9:08 AM CST Physical Therapy 07/26/20 0908 General PT Missed Visit Reason Bedrest (Will evaluate when appropriate for physical therapy. ) ER HOUSE SUPERVISOR * Lisy Sanchez OT - 2020 9:02 AM CST 07/26/20 0900 General OT Missed Visit Reason Bedrest ER HOUSE SUPERVISOR * Clarence Brooks MD - 2020 4:52 AM CST Orthopaedic Surgery Spine Progress Note 2020 4:52 AM Macie Briseno (1945) [id number] Ortho Spine Primary 75 y.o. 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 S/p Revision PSF L1-L4, L1-4 laminectomies, dural repair 07/25 Interval Hx - NAEON - Pain controlled w/ YARDER OPERATOR - Has been HOB flat, continue until [...] extension 5/5 5/5 Wrist flexion 5/5 5/5 Sustainability Analyst 5/5 5/5 Interosseous of hand 5/5 5/5 [...] PT progress: OT/PT ordered Pain control: Dilaudid form builder helper (possible DC this evening if , oxycodone [...] the appropriate orthopaedic surgery team, please use [email or web address] to page resident directly. ?? If you have questions overnight (after 1800) or can't reach the appropriate resident, please call the Orthopaedic Main Consult pager at [phone] to have your questions answered or be directed to the correct Orthopaedic Surgery resident. Clarence Brooks MD Department of Orthopaedic Surgery PGY2 [facility] in [facility] [phone] ER HOUSE SUPERVISOR ER HOUSE SUPERVISOR documented in this encounter H&P Notes * [...] Jeremy Michelle MD PhD Attending Spine Surgeon Ship Rigger of Orthopaedic and Neurological Surgery [facility] Orthopaedics Michelle [facility] ER HOUSE SUPERVISOR Source Note - Tan Mosley MD - 07/25/2020 8:30 AM BOILER HOUSE SUPERVISOR ORTHO SPINE PREOPERATIVE H&P HPI: Macie Briseno [...] very pleasant. She previously saw my senior behavioral scientist Dr. Hunt with a talked about possible [...] surgery. Tan Mosley MD Surgical Spine Fellow ER HOUSE SUPERVISOR * Tan Mosley MD - 07/25/2020 8:30 [...] very pleasant. She previously saw my senior behavioral scientist Dr. Hunt with a talked about possible [...] surgery. Tan Mosley MD Surgical Spine Fellow ER HOUSE SUPERVISOR documented in this encounter Nursing Notes * Tootie Polanco RN - 07/27/2020 8:00 AM CST Patient states her hands feel shaky and her vision is jumping . Notified Dr. Brooks. saw patient at bedside. No new orders given. Got BP and blood sugar per MD request. ER HOUSE SUPERVISOR * Tarah Knight RN - 2020 1:56 PM CST Pt very drowsy and forgetful this morning; reminded pt of YARDER OPERATOR if pain occurs; pt complained of increasing pain around 1130; pt reminded about YARDER OPERATOR button; pt states she does not think it is working; contacted ortho resident Clarence Brooks approx 1230 of pt complaint of intensifying pain; MD instructedto offer oral pain medication instead of YARDER OPERATOR pump; pt agreeable; 1400 pt reports decreased pain andstates she is comfortable ER HOUSE SUPERVISOR documented in this encounter Miscellaneous Notes [...] improve to fullest extent possible Outcome: Progressing ER HOUSE SUPERVISOR * Plan of Care - Wendi Catherine [...] improve to fullest extent possible Outcome: Progressing ER HOUSE SUPERVISOR * Op Note - Jeremy Michelle MD - 07/25/2020 9:55 AM CST Operative Report Surgeon Jeremy Michelle MD PhD Network Management Specialist(s) Wicho Mosley MD Anesthesia General endotracheal. Preoperative/Postop [...] free and clear when this was completed. Kendall confirmed this Rods were placed and final [...] POD2 Jeremy Michelle MD PhD Attending Physician [facility] Orthopaedics Division of Spine Surgery c. p. [phone] Implant Information Implant Name Type Inv. Item Serial No. Plaster And Stucco Worker Lot No. [id number] No. Used Action [employer]OSOURCE [id number] CRUSHED CHIP FROZEN GRAFT 30ML BONE CANCELLOUS - [id number] ALLOSOURCE [id number] Chip Frozen Graft 30ml Bone Cancellous [employer]osource [id number] N/A 1 Implanted MEDTRONIC SOFAMOR DANEK [id number] INFUSE 18MM 26MM ABSORBABLE SPONGE STERILE WATER SYRINGE NEEDLE - [id number] MEDTRONIC SOFAMOR [employer]K [id number] Infuse 18mm 26mm Absorbable Sponge Sterile Water Syringe Needle Medtronic Inc [id number] N/A 1 Implanted ALLOSOURCE [id number] CRUSHED CHIP FROZEN GRAFT 30ML BONE CANCELLOUS - [id number] ALLOSOURCE [id number] Chip Frozen Graft 30ml Bone Cancellous Allosource [id number] N/A 1 Implanted DEPUY SPINE [id number] EXPEDIUM 6.5MM 60MM POLYAXIAL SPINE SCREW BONE TITANIUM 5.5MM EL - [id number] DEPUY SPINE [id number] Expedium 6.5mm 60mm Polyaxial Spine Screw Bone Titanium 5.5mm El Depuy Spine N/A 2 Implanted DEPUY SPINE [id number] EXPEDIUM 7MM 55MM 1 INNIE POLYAXIAL SPINE SCREW BONE TITANIUM - [id number] DEPUY SPINE [id number] Expedium 7mm 55mm 1 Innie Polyaxial Spine Screw Bone Titanium Depuy Spine N/A 3Implanted DEPUY SPINE [id number] EXPEDIUM 7MM 50MM 1 INNIE POLYAXIAL SPINE SCREW BONE TITANIUM - [id number] DEPUY SPINE [id number] Expedium 7mm 50mm 1 Innie Polyaxial Spine Screw Bone Titanium Depuy Spine N/A 3 Implanted DEPUY SPINE [id number] EXPEDIUM 5.5MM 85MM LINE PREBENT EL SPINAL TITANIUM NONSTERILE - [id number] DEPUY SPINE [id number] Expedium 5.5mm 85mm Line Prebent El Spinal Titanium Nonsterile Depuy Spine N/A 2 Implanted DEPUY SPINE [id number] EXPEDIUM 1 INNER MONOAXIAL SPINE SCREW SET TITANIUM - [id number] DEPUY SPINE [id number] Expedium 1 Inner Monoaxial Spine Screw Set Titanium Depuy Spine N/A 8 Implanted Operative Report dictated by Jeremy Michelle MD PhD on 07/25/20 using [employer]. Piggyback Clerk variances may occur. ER HOUSE SUPERVISOR documented in this encounter Plan of Treatment Not on file documented as of this encounter Procedures Procedure Name Priority Date/Time Associated Diagnosis Comments CBC WITHOUT DIFFERENTIAL Routine 07/29/2020 4:47 AM BOILER HOUSE SUPERVISOR XR SCOLIOSIS AP LAT ED Urgent/IP Urgent 07/28/2020 1:24 PM BOILER HOUSE SUPERVISOR CBC WITHOUT DIFFERENTIAL Routine 07/28/2020 4:33 AM BOILER HOUSE SUPERVISOR ECG 12-LEAD Routine 07/27/2020 9:57 AM BOILER HOUSE SUPERVISOR POCT GLUCOSE DEVICE Routine 07/27/2020 8 :23 AM BOILER HOUSE SUPERVISOR CBC WITHOUT DIFFERENTIAL Routine 07/27/2020 4:03 AM BOILER HOUSE SUPERVISOR APTT Routine 2020 5:28 AM BOILER HOUSE SUPERVISOR PROTIME-INR Routine 2020 5:28 AM BOILER HOUSE SUPERVISOR CBC WITHOUT DIFFERENTIAL Routine 2020 5:28 AM BOILER HOUSE SUPERVISOR BASIC METABOLIC PANEL Routine 2020 5:28 AM BOILER HOUSE SUPERVISOR APTT STAT 07/25/2020 2:04 PM BOILER HOUSE SUPERVISOR PROTIME-INR STAT 07/25/2020 2:04 PM BOILER HOUSE SUPERVISOR CBC WITHOUT DIFFERENTIAL STAT 07/25/2020 2:04 PM BOILER HOUSE SUPERVISOR COMPREHENSIVE METABOLIC PANEL STAT 07/25/2020 2:04 PM BOILER HOUSE SUPERVISOR FL FLUOROSCOPY < 1 HOUR IP Routine 07/25/2020 12:33 PM BOILER HOUSE SUPERVISOR POC BLOOD GAS AND CHEMISTRIES, ARTERIAL Routine 07/25/2020 10:09 AM BOILER HOUSE SUPERVISOR SPINAL CORD MONITORING 0 8:34 AM BOILER HOUSE SUPERVISOR Acute low back pain, unspecified back pain laterality, unspecified whether sciatica present Special Needs Cut to close:480, bone scalpel, SCM, fluoro,O-arm, TXA, ultrasound, Flat plate, Greg Frame, GW, PRBCS _2_units, local autograft, allograft chips, 1 lrge unopened BMP Kit, DePuy Expedium, Revision (Dr Henry, 2019) Globus Creo (rep brining removal tool s) BONE GRAFT WITH BONE MORPHOGENIC PROTEIN 07/25/2020 8:34 AM BOILER HOUSE SUPERVISOR Acute low back pain, unspecified back pain laterality, unspecified whether sciatica present Special Needs Cut to close:480, bone scalpel, SCM, fluoro,O-arm, TXA, ultrasound, Flat plate, Greg Frame, GW, PRBCS _2_units, local autograft, allograft chips, 1 lrge unopened BMP Kit, DePuy Expedium, Revision (Dr Henry, 2019) Globus Creo (rep brining removal tool s) REMOVAL HARDWARE SPINE 0 8:34 AM BOILER HOUSE SUPERVISOR Acute low back pain, unspecified back pain laterality, unspecified whether sciatica present Special Needs Cut to close:480, bone scalpel, SCM, fluoro,O-arm, TXA, ultrasound, Flat plate, Greg Frame, GW, PRBCS _2_units, local autograft, allograft chips, 1 lrge unopened BMP Kit, DePuy Expedium, Revision (Dr Henry, 2019) Globus Creo (rep brining removal tool s) FUSION DECOMPRESSION LAMINECTOMY WITH INSTRUMENTATION - DEPUY EXPEDIUM 07/25/2020 8:34 AM BOILER HOUSE SUPERVISOR Acute low back pain, unspecified back pain laterality, unspecified whether sciatica present Special Needs Cut to close:480, bone scalpel, SCM, fluoro,O-arm, TXA, ultrasound, Flat plate, Greg Frame, GW, PRBCS _2_units, local autograft, allograft chips, 1 lrge unopened BMP Kit, DePuy Expedium, Revision (Dr Henry, 2019) Globus Creo (rep brining removal tool s) PREPARE RBC Timed 07/25/2020 6:43 AM BOILER HOUSE SUPERVISOR documented in this encounter Results * (ABNORMAL) CBC without differential (07/29/2020 4:47 AM BOILER HOUSE SUPERVISOR) [facility] WBC 5.4 3.8 - 9.9 K/cumm [facility] Hgb 11.0(L) 11.9 - 15.5 g/dL [facility] Hct 31.8(L) 35.6 - 45.5 % [facility] Plt 247 150 - 400 K/cumm [facility] MPV 10.0 9.1 - 12.3 fL [facility] RBC 3.70(L) 3.90 - 5.20 M/cumm [facility] MCV 85.9 81.3 - 96.4 fL [facility] MCH 29.7 27.1 - 33.3 pg [facility] MCHC 34.6 32.3 - 35.7 g/dL [facility] RDW CV 13.9 11.1 - 14.9 % [facility] RDW SD 43.8 35.7 - 48.1 fL [facility] NRBC abs 0.00 0.00 - 0.01 K/cumm [facility] Blood specimen (specimen) 07/29/2020 4:47 AM BOILER HOUSE SUPERVISOR 07/29/2020 5:02 AM BOILER HOUSE SUPERVISOR us Fay Leyva NP LAB BLOOD ORDERABLES Geovanna huynh Result Performing Organization Address City/State/[facility] Co de Phone Number [facility] Department [place] [address] * XR Scoliosis Ap and Lateral (07/28/2020 1:24 PM BOILER HOUSE SUPERVISOR) Anatomical Region Laterality Modality Spine N/A Computed Radiogr aphy 07/28/2020 2:26 PM BOILER HOUSE SUPERVISOR Impressions 07/28/2020 2:26 PM BOILER HOUSE SUPERVISOR 1. ??Interval revision of instrumented lumbar posterior spinal fusion and decompression which now extends from L1 through L4. ??Unchanged non-instrumented posterior spinal fusion and posterior decompression from L4 through S1 and discectomy with interbody fusion from L2 through S1. Electronically signed by: Yemi Francis M.D. Narrative 07/28/2020 2:26 PM BOILER HOUSE SUPERVISOR EXAMINATION: Thoracolumbar scoliosis 2 or 3 views [...] (ABNORMAL) CBC without differential (07/28/2020 4:33 AM BOILER HOUSE SUPERVISOR) [facility] Signature WBC 6.8 3.8 - 9.9 K/cumm [facility] Hgb 10.5(L) 11.9 - 15.5 g/dL [facility] Hct 31.9(L) 35.6 - 45.5 % [facility] Plt 248 150 - 400 K/cumm [facility] MPV 10.1 9.1 - 12.3 fL [facility] RBC 3.67(L) 3.90 - 5.20 M/cumm [facility] MCV 86.9 81.3 - 96.4 fL [facility] MCH 28.6 27.1 - 33.3 pg [facility] MCHC 32.9 32.3 - 35.7 g/dL [facility] RDW CV 14.3 11.1 - 14.9 % [facility] RDW SD 45.6 35.7 - 48.1 fL [facility] NRBC abs 0.00 0.00 - 0.01 K/cumm [facility] Blood specimen (specimen) 07/28/2020 4:33 AM BOILER HOUSE SUPERVISOR 07/28/2020 4:44 AM BOILER HOUSE SUPERVISOR us Fay Leyva [employer] LAB BLOOD ORDERABLES Geovanna l Result Performing Organization Address City/[facility] Co de Phone Number [facility] Department [place] [address] * ECG 12 lead (07/27/2020 9:57 AM BOILER HOUSE SUPERVISOR) Ventricular Rate EKG/Min 55 BPM [facility] Atrial Rate 55 BPM [facility] AR-Interval (MSEC) 184 ms [facility] QRS-Interval (MSEC) 108 ms [facility] QT-Interval (MSEC) 458 ms [facility] QTc 438 ms [facility] P [place] 111 degrees [facility] R [place] 54 degrees [facility] [place] 115 degrees [facility] Diagnosis Sinus bradycardia Left ventricular hypertrophy with repolarization abnormality Abnormal ECG No previous ECGs available Confirmed by STAN CARABALLO M.D ([id number]) on 07/30/2020 2:23:03 PM [facility] 07/27/2020 9:57 AM BOILER HOUSE SUPERVISOR 07/30/2020 2:23 PM BOILER HOUSE SUPERVISOR Jeremy Michelle MD ECG ORDERABLES Geovanna l Result [facility] * POCT glucose (07/27/2020 8:23 AM BOILER HOUSE SUPERVISOR) Glucose, POC 106 70 - 199 mg/dL [facility] Blood specimen (specimen) 07/27/2020 8:23 AM BOILER HOUSE SUPERVISOR 07/27/2020 8:23 AM BOILER HOUSE SUPERVISOR Jeremy Michelle MD LAB POCT ORDERABLES - DEVICE Final Result Performing Organization Address [facility] Co de Phone Number [facility] Department [place] [address] * (ABNORMAL) CBC without differential (07/27/2020 4:03 AM BOILER HOUSE SUPERVISOR) WBC 9.7 3.8 - 9.9 K/cumm [facility] Hgb 10.6(L) 11.9 - 15.5 g/dL [facility] Hct 32.1(L) 35.6 - 45.5 % [facility] Plt 242 150 - 400 K/cumm [facility] MPV 9.9 9.1 - 12.3 fL [facility] RBC 3.67(L) 3.90 - 5.20 M/cumm [facility] MCV 87.5 81.3 - 96.4 fL [facility] MCH 28.9 27.1 - 33.3 pg [facility] MCHC 33.0 32.3 - 35.7 g/dL [facility] RDW CV 14.3 11.1 - 14.9 % [facility] RDW SD 46.1 35.7 - 48.1 fL [facility] NRBC abs 0.00 0.00 - 0.01 K/cumm [facility] Blood specimen (specimen) 07/27/2020 4:03 AM BOILER HOUSE SUPERVISOR 07/27/2020 4:14 AM BOILER HOUSE SUPERVISOR Fay Leyva [employer] LAB BLOOD ORDERABLES Geovanna l Result Performing Organization Address [facility]/ZIP Co de Phone Number [facility] Department [place] [address] * (ABNORMAL) CBC without differential (2020 5:28 AM BOILER HOUSE SUPERVISOR) WBC 9.3 3.8 - 9.9 K/cumm [facility] Hgb 11.7(L) 11.9 - 15.5 g/dL [facility] Hct 34.7(L) 35.6 - 45.5 % [facility] Plt 269 150 - 400 K/cumm [facility] MPV 9.7 9.1 - 12.3 fL [facility] RBC 4.02 3.90 - 5.20 M/cumm [facility] MCV 86.3 81.3 - 96.4 fL [facility] MCH 29.1 27.1 - 33.3 pg [facility] MCHC 33.7 32.3 - 35.7 g/dL [facility] RDW CV 14.0 11.1 - 14.9 % [facility] RDW SD 44.3 35.7 - 48.1 fL [facility] NRBC abs 0.00 0.00 - 0.01 K/cumm [facility] Blood specimen (specimen) 2020 5:28 AM BOILER HOUSE SUPERVISOR 2020 5:45 AM BOILER HOUSE SUPERVISOR Result [facility] Fay Leyva NP LAB BLOOD ORDERABLES Geovanna l Result Performing Organization Address [facility] de Phone Number [facility] [place] [address] * aPTT (2020 5:28 AM BOILER HOUSE SUPERVISOR) aPTT 27 25 - 37 sec [facility] Comment: Interpretive data Heparin therapeutic range: 60-90 seconds Range based on correlation with therapeutic heparin activity range of 0.3-0.7 units/ml. Current interpretive data was last revised on 2019. Blood specimen (specimen) 2020 5:28 AM BOILER HOUSE SUPERVISOR 2020 5:42 AM BOILER HOUSE SUPERVISOR Fay Leyva NP LAB BLOOD ORDERABLES Geovanna l Result Performing Organization Address [facility] Co de Phone Number [facility] [place] [address] * Protime-INR (2020 5:28 AM BOILER HOUSE SUPERVISOR) PT 11.7 8.6 - 13.0 sec [facility] INR 1.1 0.8 - 1.2 [facility] Comment: Interpretive data Oral anticoagulant therapeutic ranges: Venous thromboembolism prophylaxis or treatment: 2.0-3.0 CARDIOLOGY Standard range: 2.0-3.0 High-intensity range: 2.5-3.5 Refer to indication-specific guidelines for appropriate target ranges for prosthetic heart valve replacement. Current interpretive data was last revised on 2019. Blood specimen (specimen) 2020 5:28 AM BOILER HOUSE SUPERVISOR 2020 5:42 AM BOILER HOUSE SUPERVISOR Fay Leyva NP LAB BLOOD ORDERABLES Geovanna l Result [facility] Department [place] [address] * Basic metabolic panel (2020 5:28 AM BOILER HOUSE SUPERVISOR) Sodium 140 135 - 145 mmol/L [facility] Potassium, pl 3.8 3.3 - 4.9 mmol/L [facility] Chloride 105 97 - 110 mmol/L [facility] CO2 30 22 - 32 mmol/L [facility] Anion gap 5 2 - 15 mmol/L [facility] BUN 10 8 - 25 mg/dL [facility] Creatinine 0.66 0.60 - 1.10 mg/dL [facility] Glucose 133 70 - 199 mg/dL [facility] Comment: Interpretive Data Fasting glucose >/= [...] 2017. Calcium 8.6 8.5 - 10.3 mg/dL [facility] Blood specimen (specimen) 2020 5:28 AM BOILER HOUSE SUPERVISOR 2020 5:46 AM BOILER HOUSE SUPERVISOR [facility] [employer] LAB BLOOD ORDERABLES Geovanna l Result Performing Organization Address [facility] de Phone Number [facility] [place] [address] * aPTT (07/25/2020 2:04 PM BOILER HOUSE SUPERVISOR) aPTT 30 25 - 37 sec [facility] Comment: Interpretive data Heparin therapeutic range: 60-90 seconds Range based on correlation with therapeutic heparin activity range of 0.3-0.7 units/ml. Current interpretive data was last revised on 2019. Blood specimen (specimen) 07/25/2020 2:04 PM BOILER HOUSE SUPERVISOR 07/25/2020 2:04 PM BOILER HOUSE SUPERVISOR Result [facility] LAB BLOOD ORDERABLES Geovanna l Result Performing Organization Address [facility] de Phone Number [facility] [place] [address] * Protime-INR (07/25/2020 2:04 PM BOILER HOUSE SUPERVISOR) PT 12.7 8.6 - 13.0 sec [facility] INR 1.2 0.8 - 1.2 [facility] Comment: Interpretive data Oral anticoagulant therapeutic ranges: Venous thromboembolism prophylaxis or treatment: 2.0-3.0 CARDIOLOGY Standard range: 2.0-3.0 High-intensity range: 2.5-3.5 Refer to indication-specific guidelines for appropriate target ranges for prosthetic heart valve replacement. Current interpretive data was last revised on 2019. Blood specimen (specimen) 07/25/2020 2:04 PM BOILER HOUSE SUPERVISOR 07/25/2020 2:04 PM BOILER HOUSE SUPERVISOR us Fayjae Acostacésar Leyva [employer] LAB BLOOD ORDERABLES Geovanna huynh Result [facility] Department [place] [address] * (ABNORMAL) Comprehensive metabolic panel (07/25/2020 2:04 PM BOILER HOUSE SUPERVISOR) Sodium 141 135 - 145 mmol/L [facility] Potassium, pl 3.4 3.3 - 4.9 mmol/L [facility] Chloride 105 97 - 110 mmol/L [facility] CO2 27 22 - 32 mmol/L [facility] Anion gap 9 2 - 15 mmol/L [facility] BUN 9 8 - 25 mg/dL [facility] Creatinine 0.70 0.60 - 1.10 mg/dL [facility] Glucose 129 70 - 199 mg/dL [facility] Comment: Interpretive Data Fasting glucose >/= [...] 2017. Calcium 8.2(L) 8.5 - 10.3 mg/dL [facility] Bilirubin, total 0.4 0.1 - 1.2 mg/dL [facility] Protein, pl 5.3(L) 6.5 - 8.5 g/dL [facility] Albumin 3.1(L) 3.5 - 5.0 g/dL [facility] Alk phos 100 40 - 130 Units/L [facility] ALT 86(H) 7 - 45 Units/L [facility] AST 135(H) 10 - 45 Units/L [facility] Blood specimen (specimen) 07/25/2020 2:04 PM BOILER HOUSE SUPERVISOR 07/25/2020 2:04 PM BOILER HOUSE SUPERVISOR Result [facility] Fay Leyva [employer] LAB BLOOD ORDERABLES Geovanna l Result Performing Organization Address [facility] Co de Phone Number [facility] Department [place] [address] * (ABNORMAL) CBC without differential (07/25/2020 2:04 PM BOILER HOUSE SUPERVISOR) Pathologist [facility] WBC 8.2 3.8 - 9.9 K/cumm [facility] Hgb 11.0(L) 11.9 - 15.5 g/dL [facility] Hct 32.7(L) 35.6 - 45.5 % [facility] Plt 255 150 - 400 K/cumm [facility] MPV 9.8 9.1 - 12.3 fL [facility] RBC 3.83(L) 3.90 - 5.20 M/cumm [facility] MCV 85.4 81.3 - 96.4 fL [facility] MCH 28.7 27.1 - 33.3 pg [facility] MCHC 33.6 32.3 - 35.7 g/dL [facility] RDW CV 13.9 11.1 - 14.9 % [facility] RDW SD 43.5 35.7 - 48.1 fL [facility] NRBC abs 0.00 0.00 - 0.01 K/cumm [facility] Blood specimen (specimen) 07/25/2020 2:04 PM BOILER HOUSE SUPERVISOR 07/25/2020 2:04 PM BOILER HOUSE SUPERVISOR Fay Leyva [employer] LAB BLOOD ORDERABLES Geovanna l Result Performing Organization Address [facility]/ZIP Co de Phone Number [facility] Department [place] [address] * [place] Fluoroscopy < 1 Hour (07/25/2020 12:33 PM BOILER HOUSE SUPERVISOR) Narrative [facility] - 07/25/2020 12:34 PM BOILER HOUSE SUPERVISOR The images from this study are not interpreted by Radiology. ??Please refer to the physician's procedure / OR operative note. us Jeremy Michelle MD IMG FLUOROSCOPY PROC EDURES Final Result [facility] * (ABNORMAL) POC Blood Gas and Chemistries, Arterial - (07/25/2020 10:09 AM BOILER HOUSE SUPERVISOR) pH, Art POC 7.43 7.35 - 7.45 [...] Cl, POC 104 97 - 110 mmol/L [facility] Ion[facility] Ca, POC 4.57 4.50 - 5.10 mg/dL [facility] Glucose, POC 159 70 - 199 mg/dL [facility] Lactate, POC 0.8 0.7 - 2.2 mmol/L [facility] SO2 (alexsander) arterial 100(H) 90 - 95 % [facility] Base excess, POC 1.5 mmol/L [facility] HCO3, Art POC 26 20 - 30 mmol/L [facility] Hct, POC 36.0(L) 36.3 - 45.3 % [facility] O2 Sat, Art POC (Calc) 100 % [facility] Total Hb, POC 12.1 11.9 - 15.5 g/dL [facility] Blood specimen (specimen) 07/25/2020 10:09 AM BOILER HOUSE SUPERVISOR 07/25/2020 10:09 AM BOILER HOUSE SUPERVISOR us Jeremy Michelle MD LAB POCT ORDERABLES - DEVICE Final Result [facility] Department [place] [address] * Prepare RBC: 2 Units (07/25/2020 6:43 AM BOILER HOUSE SUPERVISOR) Product code [id number] [facility] Unit Number [id number] 7-Q KATIA NIEVES Product Blood Type ANEG KATIA NIEVES Dispense Status RETURNED KATIA NIEVES Product code [id number] KATIA NIEVES Unit Number [id number] 9-D KATIA CASTILLO Product Blood Type ANEG KATIA NIEVES Dispense Status RETURNED KATIA NIEVES Blood specimen (specimen) 07/25/2020 6:43 AM BOILER HOUSE SUPERVISOR 07/25/2020 6:43 AM BOILER HOUSE SUPERVISOR Narrative KATIA NIEVES - 2020 11:56 AM BOILER HOUSE SUPERVISOR Specify Procedure:->spine fusion T12-L4 Are special requirements needed? (all products are leukoreduced)->No Date required:-[id number] LRRBC # of [id number] Reasons:-Hold for procedure (specify procedure)} Estefania Melara MD BLOOD BANK PRODUCT ORDER ROBERT Final Result KATIA NIEVES [facility] Department [place] [address] documented in this encounter Visit Diagnoses Diagnosis Acute low back pain- Primary Lumbago Dyslipidemia Other and unspecified hyperlipidemia Essential hypertension Unspecified essential hypertension Major depressive disorder, single episode, moderate (HCC) Major depressive disorder, single episode, moderate documented in this encounter Admitting Diagnoses Diagnosis Acute low back pain Lumbago documented in this encounter Administered Medications Inactive Administered Medications - up to 3 most recent administrations Medication Order MAR Action Action Date Dose Rate Site acetaminophen (TYLENOL) tablet 1,000 mg 1,000 mg, oral, Every 6 hours scheduled, First dose on Thu07/25/20 at 1800, Indications: PainIndications:Pain Given 07/29/2020 11:37 AM BOILER HOUSE SUPERVISOR 1,000 mg Given 07/29/2020 6:14 AM BOILER HOUSE SUPERVISOR 1,000 mg Given 07/28/2020 1:40 PM BOILER HOUSE SUPERVISOR 1,000 mg acetaminophen (TYLENOL) tablet 975 mg 975 mg (rounded from 1,000 mg), oral, Once, On Thu07/25/20 at 0715, For 1 dose, Pre-Op, Indications: PainIndications:Pain Given 07/25/2020 7:50 AM BOILER HOUSE SUPERVISOR 975 mg atorvastatin (LIPITOR) tablet 20 mg 20 mg, oral, Nightly, First dose on Thu07/25/20 at 2100, Indications: hyperlipidemiaIndications:hyperlipidemia Given 07/28/2020 9:23 PM BOILER HOUSE SUPERVISOR 20 mg Given 07/27/2020 8:12 PM BOILER HOUSE SUPERVISOR 20 mg Given 2020 8:12 PM BOILER HOUSE SUPERVISOR 20 mg baclofen (LIORESAL) tablet 10 mg 10 mg, oral, Every 8 hours scheduled, First dose on Thu07/25/20 at 1715, Indications: Muscle spasmIndications:Muscle spasm Given 07/29/2020 2:35 PM BOILER HOUSE SUPERVISOR 10 mg Given 07/29/2020 6:14 AM BOILER HOUSE SUPERVISOR 10 mg Given 07/28/2020 9:23 PM BOILER HOUSE SUPERVISOR 10 mg bisacodyL (DULCOLAX) suppository 10 mg 10 mg, rectal, Daily, First dose on Kat 07/26/20 at 0900, Indications: constipationIndications:constipatio n Given 07/28/2020 8:24 AM BOILER HOUSE SUPERVISOR 10 mg caffeine tablet 100 mg 100 mg, oral, Daily PRN, headaches, migraine, Starting on Kat 07/26/20 at 0844 ceFAZolin (ANCEF) 100 mg/mL sterile water 1,000 mg 1,000 mg, intravenous, at 200 mL/hr, Administer over 3 Minutes, Every 8 hours, First dose on Thu07/25/20 at 1800, For 3 doses, Beginning 8 hours after last anabel-procedural dose., Indications: Prophylaxis, SurgicalIndications:Prophylaxis, Surgical Given 2020 9:43 AM BOILER HOUSE SUPERVISOR 1,000 mg 200 mL/hr Given 2020 1:42 AM BOILER HOUSE SUPERVISOR 1,000 mg 200 mL/hr Given 07/25/2020 7:22 PM BOILER HOUSE SUPERVISOR 1,000 mg 200 mL/hr dextrose 5% and sodium chloride 0.9% infusion (premix) 75 mL/hr, intravenous, Continuous, Starting on Thu07/25/20 at 1415, Phase I & Post-op Floor, Discontinue when tolerating PO (500 mL in 8 hours). New Bag 07/28/2020 6:10 AM BOILER HOUSE SUPERVISOR 75 mL/hr 75 mL/hr New Bag 2020 5:41 PM BOILER HOUSE SUPERVISOR 75 mL/hr 75 mL/hr New Bag 2020 5:31 AM BOILER HOUSE SUPERVISOR 75 mL/hr 75 mL/hr dilTIAZem XR (CARDIZEM CD,DILACOR XR) 24 hour capsule 180 mg 180 mg, oral, Daily, First dose on Kat 07/26/20 at 0900, Do not crush, chew, cut, dissolve, open or otherwise manipulate tablet/capsule., Indications: prevention of anginal pain in coronary artery disease, HTNIndications:prevention of anginal pain in coronary artery disease,HTN Given 07/29/2020 7:51 AM BOILER HOUSE SUPERVISOR 180 mg Given 07/28/2020 8:24 AM BOILER HOUSE SUPERVISOR 180 mg Given 07/27/2020 8:50 AM BOILER HOUSE SUPERVISOR [address] (CYMBALTA) extended release capsule 60 mg 60 mg, oral, Every morning, First dose on Kat 07/26/20 at 0900, Capsule may be opened and contents mixed with applesauce or apple juice ONLY. Do not crush, chew, cut, dissolve, open or otherwise manipulate tablet/capsule., Indications: Anxiety with DepressionIndications:Anxiety with Depression Given 07/29/2020 7:5 0 AM BOILER HOUSE SUPERVISOR 60 mg Given 07/28/2020 8:24 AM BOILER HOUSE SUPERVISOR 60 mg Given 07/27/2020 8:50 AM BOILER HOUSE SUPERVISOR 60 mg flecainide (TAMBOCOR) tablet 100 mg 100 mg, oral, 2 times daily, First dose on Kat 07/26/20 at 0930 Given 07/29/2020 7:51 AM BOILER HOUSE SUPERVISOR 100 mg Given 07/28/2020 9:22 PM BOILER HOUSE SUPERVISOR 100 mg Given 07/28/2020 8:24 AM BOILER HOUSE SUPERVISOR 100 mg heparin 5,000 unit/mL injection 5,000 Units 5,000 Units, subcutaneous, Every 8 hours scheduled, First dose on Thu07/27/20 at 1400, Indications: Deep Vein Thrombosis PreventionIndications:Deep Vein Thrombosis Prevention Given 07/29/2020 2:37 PM BOILER HOUSE SUPERVISOR 5,000 Units Left Lower Abdomen Given 07/29/2020 6:14 AM BOILER HOUSE SUPERVISOR 5,000 Units L eft Upper Abdomen Given 07/28/2020 9:23 PM BOILER HOUSE SUPERVISOR 5,000 Units L eft Lower Abdomen HYDROmorphone (DILAUDID) 1 mg/mL injection - ADS Override Pull Starting on Thu07/25/20 at 1352, For 1 dose, ARIEL SALGADO: bruce laura HYDROmorphone (DILAUDID) injection 0.2 mg 0.2 mg, intravenous, Administer over 2 Minutes, Every 4 hours PRN, breakthrough pain, Starting on Thu07/27/20 at 1357 Given 07/27/2020 2:08 PM BOILER HOUSE SUPERVISOR 0.2 mg HYDROmorphone (DILAUDID) injection 0.5 mg 0.5 mg, intravenous, Administer over 2 Minutes, Every 10 min PRN, 1st line for pain, Starting on Thu07/25/20 at 1350, Phase I, Notify Anesthesiologist if total PACU dose reaches 2 mg and pain score 5/10 or more., Indications: PainIndications:Pain Given 07/25/2020 2:20 PM BOILER HOUSE SUPERVISOR 0.5 mg Given 07/25/2020 2:05 PM BOILER HOUSE SUPERVISOR 0.5 mg Given 07/25/2020 1:55 PM BOILER HOUSE SUPERVISOR 0.5 mg HYDROmorphone in 0.9% sodium chloride (DILAUDID) 20 mg/100 mL (0.2 mg/mL) cassette (premix) Continuous dose: None, YARDER OPERATOR dose: 0.2 mg, YARDER OPERATOR lockout: 10 Minutes, 1 hour limit: Other / 1.2 mg, intravenous, Continuous, Starting on Thu07/25/20 at 1415, Until Thu07/27/20 at 0843, 100 mL, Indications: Pain, RoutineIndications:Pain New Syringe/Cartridge 07/25/2020 2:25 PM BOILER HOUSE SUPERVISOR 20 mg Lactated Ringer's (LR) infusion 30 mL/hr, intravenous, Continuous, Starting on Thu07/25/20 at 0715, Pre-Op Rate/Dose Change 07/25/2020 1:25 PM BOILER HOUSE SUPERVISOR 50 mL/hr New Bag 07/25/2020 10:24 AM BOILER HOUSE SUPERVISOR Rate/Dose Verify 07/25/2020 8:26 AM BOILER HOUSE SUPERVISOR 30 mL/h r mineral oil (FLEET MINERAL OIL) enema 1 enema 1 enema, rectal, Once as needed, constipation, For constipation not relieved by miralax, oral medication or suppository, Starting on Thu07/28/20 at 1211, For 1 dose, Indications: constipationIndications:constipation montelukast (SINGULAIR) tablet 10 mg 10 mg, oral, Nightly, First dose on Thu07/25/20 at 2100, Indications: Seasonal Allergic RhinitisIndications:Seasonal Allergic Rhinitis Given 07/28/2020 9:23 PM BOILER HOUSE SUPERVISOR 10 mg Given 07/27/2020 8:12 PM BOILER HOUSE SUPERVISOR 10 mg Given 2020 8:12 PM BOILER HOUSE SUPERVISOR 10 mg multivit eqsityie-gqjy-HK-calcium (THERA-M) tablet 1 tablet 1 tablet, oral, Daily, First dose on Kat 07/26/20 at 0900, Indications: Vitamin Deficiency PreventionIndications:Vitamin Deficiency Prevention Given 07/28/2020 8:24 AM BOILER HOUSE SUPERVISOR 1 tablet Given 07/27/2020 8:50 AM BOILER HOUSE SUPERVISOR 1 tablet Given 2020 9:43 AM BOILER HOUSE SUPERVISOR 1 tablet ondansetron (ZOFRAN) injection 4 mg 4 mg, intravenous, Administer over 2 Minutes, Every 6 hours PRN, nausea, vomiting, 1st line, Starting on Thu07/25/20 at 1632, Proceed to prochlorperazine if no relief within 30 minutes. Given 07/29/2020 7:16 AM BOILER HOUSE SUPERVISOR 4 mg Given 07/28/2020 5:18 PM BOILER HOUSE SUPERVISOR 4 mg Given 07/27/2020 1:57 PM BOILER HOUSE SUPERVISOR 4 mg oxyCODONE (ROXICODONE) tablet 5 mg 5 mg, oral, Every 4 hours PRN, 1st line for pain, Starting on Thu07/25/20 at 1632, Indications: PainIndications:Pain Given 07/29/2020 12:48 PM BOILER HOUSE SUPERVISOR 5 mg Given 07/29/2020 7:53 AM BOILER HOUSE SUPERVISOR 5 mg Given 07/29/2020 3:25 AM BOILER HOUSE SUPERVISOR 5 mg polyethylene glycol (MIRALAX) packet 17 g 17 g, oral, Daily PRN, constipation, Starting on Thu07/27/20 at 1358, Indications: constipationIndications:constipat ion Given by Other 07/28/2020 3:20 PM BOILER HOUSE SUPERVISOR 17 g senna-docusate (PERICOLACE) 8.6-50 mg per tablet 2 tablet 2 tablet, oral, 2 times daily, First dose on Thu07/25/20 at 2100, Hold for diarrhea., Indications: constipationIndications:constipat ion Given 07/28/2020 9:23 PM BOILER HOUSE SUPERVISOR 2 tablets Given 07/28/2020 8:24 AM BOILER HOUSE SUPERVISOR 2 tablets Given 07/27/2020 8:12 PM BOILER HOUSE SUPERVISOR 2 tablets sodium chloride 0.9% bolus 750 mL 750 mL, intravenous, Once, On Thu07/27/20 at 1545, For 1 dose New Bag 07/27/2020 3:13 PM BOILER HOUSE SUPERVISOR 750 mL sodium chloride 0.9% flush 0.5-20 mL 0.5-20 mL, intra-catheter, Every 8 hours scheduled, First dose on Thu07/25/20 at 1715, Flush volume based on line type and size. Given 07/29/2020 6:18 AM BOILER HOUSE SUPERVISOR 10 mL Given 07/28/2020 9:24 PM BOILER HOUSE SUPERVISOR 10 mL Given 07/28/2020 6:10 AM BOILER HOUSE SUPERVISOR 10 mL triamterene-hydroCHLOROthiazide (MAXZIDE,DYAZIDE) 37.5-25 mg per tablet/capsule 1 tablet/capsule 1 tablet/capsule, oral, Every morning, First dose on Kat 07/26/20 at 0900 Given 07/28/2020 8:24 AM BOILER HOUSE SUPERVISOR 1 tablet/capsule Given 07/27/2020 8:50 AM BOILER HOUSE SUPERVISOR 1 tablet/capsule Given 2020 9:43 AM BOILER HOUSE SUPERVISOR 1 tablet/capsule vancomycin 1,000 mg/200 mL in dextrose 5% (premix) 1,000 mg 1,000 mg, intravenous, Administer over 60 Minutes, Once, On Thu07/25/20 at 1715, For 1 dose, Administer 12 hours after last pre-operative dose., Indications: Prophylaxis, SurgicalIndications:Prophylaxis, Surgical New Bag 07/25/2020 9:11 PM BOILER HOUSE SUPERVISOR 1,000 mg documented in this encounter Discontinued [...] Recently Administered Medications Times are shown in BOILER HOUSE SUPERVISOR. Scheduled Medication Order 07/27/2020 07/28/2020 07/29/2020 acetaminophen [...] dose on Thu07/25/20 at 2100, Indications: hyperlipidemia 2011 (Given - Provider: Dung Plaza RN) 212 (Given - Provider: Dung Plaza RN) baclofen [...] Rondon RN) 0750 (Given - Provider: Pamela oRndon RN) flecainide (TAMBOCOR) tablet 100 mg 100 mg, oral, 2 times daily, First dose on Thu07/26/20 at 0930 0850 (Given - Provider: Tootie Polanco RN)2011 (Given - Provider: Dung Plaza, MEDINA) 0824 (Given - Provider: Pamela Rondon RN)2121 (Given - Provider: Dung Plaza RN) 0751 (Given - Provider: Pamela Rondon RN) heparin 5,000 unit/mL injection 5,000 Units 5,000 Units, subcutaneous, Every 8 hours scheduled, First dose on Thu07/27/20 at 1400, Indications: Deep Vein Thrombosis Prevention 1457 (Given - Provider: Tootie Polanco RN)2257 (Given - Provider: Dung Plaza, MEDINA) 0610 (Given - Provider: Dung Plaza, MEDINA)1340 (Given - Provider: Pamela Rondon, MEDINA)2122 (Given - Provider: Dung Plaza, MEDINA) 0614 (Given - Provider: Dung Plaza, MEDINA)1437 (Given - Provider: Pamela Rondon, MEDINA) montelukast (SINGULAIR) tablet 10 mg 10 mg, oral, Nightly, First dose on Thu07/25/20 at 2100, Indications: Seasonal Allergic Rhinitis 2011 (Given - Provider: Dung Plaza RN) 2122 (Given - Provider: Dung Plaza, MEDINA) multivit ngfzrnhq-txdm-SR-calcium (THERA-M) tablet 1 tablet 1 tablet, oral, Daily, First dose on Thu07/26/20 at 0900, Indications: Vitamin Deficiency Prevention 0850 (Given - Provider: Tootie Polanco RN) 0824 (Given - Provider: Pamela Rondon, MEDINA) 0751 (Hold - Provider: Pamela Rondon RN - Reason: Patient/family refused) senna-docusate (PERICOLACE) 8.6-50 mg per tablet 2 tablet 2 tablet, oral, 2 times daily, First dose on Thu07/25/20 at 2100, Hold for diarrhea., Indications: constipation 0850 (Given - Provider: Tootie Polanco RN)2011 (Given - Provider: Dung Plaza, MEDINA) 0824 (Given - Provider: Pamela Rondon, MEDINA)2122 (Given - Provider: Dung Plaza, MEDINA) 1016 [...] First dose on Kat 07/26/20 at 0900 0850 (Given - Provider: Tootie [...] at 1357 1408 (Given - Provider: Tootie Polanco RN) mineral oil (FLEET MINERAL OIL) enema 1 enema 1 enema, rectal, Once as needed, constipation, For constipation not relieved by miralax, oral medication or suppository, Starting on 07/28/20 at 1211, For 1 dose, Indications: constipation [...] minute until desired level of alertness. Stop YARDER OPERATOR and notify covering MD. This order has been ordered with YARDER OPERATOR infusion, please review upon the discontinuation of YARDER OPERATOR. For IV, administer over 30 seconds., Indications: Opioid Toxicity ondansetron (ZOFRAN) injection 4 mg 4 mg, intravenous, Administer over 2 Minutes, Every 6 hours PRN, nausea, vomiting, 1st line, Starting on Thu07/25/20 at 1632, Proceed to prochlorperazine if no relief within 30 minutes. 1357 (Given - Provider: Precious Love, MEDINA) 1718 (Given - Provider: Pamela Rondon RN) 0716 (Given - Provider: Dung Plaza RN) oxyCODONE (ROXICODONE) tablet 5 mg 5 mg, oral, Every 4 hours PRN, 1st line for pain, Starting on Thu07/25/20 at 1632, Indications: Pain 0149 (Given - Provider: Dung Plaza RN)0623 (Given - Provider: Dung Plaza RN)1020 (Given - Provider: Tootie Polanco, MEDINA)1513 (Given - Provider: Tootie Polanco RN - Comment: ok to give per Dr. Brooks)1919 (Given - Provider: Tootie Polanco RN)2257 (Given - Provider: Dung Plaza RN) 0610 (Given - Provider: Dung Plaza RN)1000 (Given - Provider: Pamela Rondon, MEDINA)2123 (Given - Provider: Dung Plaza RN) 0325 (Given - Provider: Dung Plaza RN)0753 (Given - Provider: Pamela Rondon, MEDINA)1248 (Given [...] O [place]) enema 1 enema 1 07/28/2020 HYDROmorphone (DILAUDID) injection 0.2 mg 1 07/27/2020 caffeine tablet 100 mg 1 2020 acetaminophen (TYLENOL) tablet 500 mg 1 ALPRAZolam (XANAX) tablet 0.5 mg 1 07/25/20 aztreonam (AZACTAM) 2,000 mg /20 mL in sterile water (premix) 2,000 mg 1 07/25/2020 ceFAZolin (ANCEF) 100 mg/mL sterile water 1,000 mg 1 07/25/2020 diphenhydrAMINE (BENADRYL) tab/cap 25 mg 1 07/25/2020 gabapentin (NEURONTIN) capsule 300 mg 1 haloperidol (HALDOL) injection 1 mg 1 07/25 lidocaine PF (XYLOCAINE) 10 mg/mL (1 %) preservative free injection 2-10 mg 1 07/25/2020 naloxone (NARCAN) 0.4 mg/mL injection 0.04-0.4 mg 2 07/25/2020 prochlorperazine (COMPAZINE) injection 10 mg 1 07/25/2020 sodium chloride 0.9 % irrigation 1 07/25/20 sodium chloride 0.9% flush 0.5-20 mL 2 06/28 thrombin-recombinant 5,000 unit solution 1 07/25/2020 tiZANidine (ZANAFLEX) tablet 4 mg 1 020 vancomycin (VANCOCIN) solution 1 07/25/2020 vancomycin 1,000 mg/200 mL i n dextrose 5% (premix) 1,000 mg 1 07/25/2020 Nursing Count Last Ordered Date First Orde red Date DISCHARGE ACTIVITY 6 07/29/2020 DISCHARGE CALL PROVIDER 2 07/29/2020 DISCHARGE DRESSING 4 07/29/2020 DISCHARGE INSTRUCTIONS 5 07/29/2020 CORE MEASURES Count Last Ordered Date First Ord ered Date REASON FOR NO VTE PROPHYLAXI S - HOSPITAL ADMISSION - MEDICATIONS 1 07/25/2020 documented in this encounter Care Teams Loan Underwriter Relationship Specialty Start Date End Date Enmanuel Gan MD [address] [place] [address] PCP - General Internal Medicine 04/26/20 Tg Houston MD [address] [facility] [address] [place] [address] Consulting Physician Cardiology 07/18/20 documented as of this encounter
--- OUTSIDE RECORDS SUMMARY | 2024-07-12 08:54 | XMS_ITS | Encounter Summary ---
Author Organization [facility] Healthcare Address [address] [place] [address] Care Team Providers Care Supervisor Fleshing Name Role Phone Enmanuel Gan MD Primary Care Provider [phone] Tg Houston MD Unavailable [phone] Encounter Details Date Type Department Care Team (Late st Contact Info) Description 07/22/2020 3:50 PM TARGET AIRCRAFT TECHNICIAN Lab [address] [id number] Pre-procedure lab exam Social History Tobacco Use Types Packs/Day Years Used Date Smoking Tobacco: Never Smokeless Tobacco: Never Alcohol Use Standard Drinks/Week Comments Yes 5 (1 standard drink = 0.6 oz pur e alcohol) Comments No Sex and Gender Information Value Date Recorded Sex Assigned at Not on file Legal Sex Female 9:09 PM TARGET AIRCRAFT TECHNICIAN Gender Identity Not on file Sexual Orientation Lesbian 05/24/2019 9: 06 AM CDT documented as of this encounter Plan of Treatment Not on file documented as of this encounter Procedures Procedure Name Priority Date/Time Associated Diagnosis Comments COVID-19 CORONAVIRUS RNA Routine 07/22/2020 11:11 AM TARGET AIRCRAFT TECHNICIAN Pre-procedure lab exam documented in this encounter Results * COVID-19 Coronavirus RNA Nasopharyngeal (07/22/2020 11:11 AM TARGET AIRCRAFT TECHNICIAN) COVID-19 RNA Not Detected [facility] Comment: Testing performed as a component of ??a specimen pool. ??Negative results should be treated as presumptive and, if inconsistent with clinical signs and symptoms or necessary for patient management, pooled samples should be tested individually. Negative results do not preclude SARS-CoV-2 infection and must not be used as the sole basis for patient management decisions. Negative results must be considered in the context of a patient? s recent exposures, history, presence of clinical signs and symptoms consistent with COVID-19. Interpretive Data Testing performed by the [facility] Molecular Infectious Disease Laboratory. The Novel Coronavirus Assay (COVID-19) Real Time RT-PCR assay is for in vitro diagnostic use under FDA emergency use authorization only. A negative RT-PCR result does not preclude infection with COVID-19 and should not be used as the sole basis for treatment or other patient management decisions. Additional sample types have been validated according to CLIA regulations. ?? Current Interpretive Data was last revised on 2019. First COVID-19 test? Unknown C[facility]ER [facility] Comment:Testing performed by : [facility], [address] [place] [address], [id number] Employeed in healthcare? Unknown [facility] Comment:Testing performed by : [facility], [address] [place] [address], [id number] status? No [facility] Comment:Testing performed by : [facility], [address] [place] [address], [phone] Group care resident? No [facility] Comment:Testing performed by : [facility], [address] [place] [address]., [phone] Hospitalized? No [facility] Comment:Testing performed by : [facility], [address] [place] [address]., [phone] Is patient in ICU? No [facility] Comment:Testing performed by : [facility], [address] [place] [address], [phone] Symptomatic as defined by CDC? No [facility] Comment:Testing performed by : [facility], [address] [place] [address], [id number] Nasopharyngeal 07/22/2020 11 :11 AM TARGET AIRCRAFT TECHNICIAN 07/22/2020 6:33 PM TARGET AIRCRAFT TECHNICIAN Narrative KATIA NIEVES - 07/23/2020 7:47 AM TARGET AIRCRAFT TECHNICIAN What is the reason for testing?->Screening prior to scheduled procedure or surgery Estefania Melara MD LAB MICROBIOLOGY - GENER AL ORDERABLES Final Result [facility] Department [place] [address] documented in this encounter Visit Diagnoses Diagnosis Pre-procedure lab exam Pre-procedural laboratory examination documented in this encounter Care Teams Supervisor Fleshing Relationship Specialty Start Date End Date Enmanuel Gan MD [address] [place] [address] PCP - General Internal Medicine 04/26/20 Tg Houston MD [address] [place] [address] Consulting Physician Cardiology 07/18/20 documented as of this encounter
--- OUTSIDE RECORDS SUMMARY | 2024-07-12 08:55 | XMS_ITS | Encounter Summary ---
Author Organization [facility] Medical [facility] Address [address] [place] [address] Care Team Providers Care Ammonium Hydroxide Operator Name Role Phone Enmanuel Gan MD Primary Care Provider [phone] Tg Houston MD Unavailable [phone] Encounter Details Date Type Department Care Team (Late st Contact Info) Description 07/13/2020 Orders Only [facility] Testing Site - [facility]. [address] [facility] [address] [place] [address] Clementina Monroe MD [address] [facility] [address] [phone] [place] [address] Pre-procedure lab exam (Primary Dx) Social History Tobacco Use Types Packs/Day Years Used Date Smoking Tobacco: Never Smokeless Tobacco: Never Alcohol Use Standard Drinks/Week Comments Yes 5 (1 standard drink = 0.6 oz pur e alcohol) Comments No Sex and Gender Information Value Date Recorded Sex Assigned at Not on file Legal Sex Female 9:09 PM MANAGER CAMP Gender Identity Not on file Sexual Orientation Lesbian 05/24/2019 9: 06 AM CDT documented as of this encounter Progress Notes * Tracy Wallace - 07/13/2020 12:14 PM CST pre procedure covid orders placed at the CAB location on . Order Information Order #: [id number] Procedure: REQUEST FOR AMBULATORY COLLECTION SITE TESTING - ADULT Order Date: 07/13/2020 Proc Category: Outpatient Referral Orderables Priority: Routine Status: ?? Class: Internal Referral Ordering User: Karlie Crum RN Auth Provider: CLEMENTINA MONROE Provider: [facility] CPAP NURSE Diagnosis: ?? Department: [facility] Cpap Sched Instruct: ?? Comment: ?? Order Specific Questions Question Answer Comment Testing types: Pre-procedure ?? Date of Px/chemo/treatment/placement/transfer 07/22/2020 ?? Testing site patient will be sent to: [facility] ?? Date testing requested: 07/25/2020 ?? Testing: COVID-RNA ?? Does the patient currently work in a healthcare facility with direct patient contact? Unknown ?? Is the patient a resident of a congregate care or living setting? No ?? Is the patient ? No ?? Please select the performing region: [facility] Medical Group ?? Referral Notes GER CAMP documented in this encounter Miscellaneous Notes * Addendum Note - Erasmo Strickland - 07/13/2020 12:14 PM CSTAddended by: ERASMO STRICKLAND on: 07/22/2020 03:47 PM Modules accepted: Orders GER CAMP documented in this encounter Plan of Treatment Not on file documented as of this encounter Results * COVID-19 Coronavirus RNA Nasopharyngeal (07/22/2020 11:11 AM MANAGER CAMP) Pathologist [facility] COVID-19 RNA Not Detected [facility] Comment: Testing performed as a component of [...] COVID-19. Interpretive Data Testing performed by the [facility] Molecular Infectious Disease Laboratory. The 2018-Novel Coronavirus Assay (COVID-19) Real Time RT-PCR assay [...] on 2019. First COVID-19 test? Unknown CERNER [facility] Comment:Testing performed by : [facility], [address] [place] [address], [id number] Employeed in healthcare? Unknown [facility] Comment:Testing performed by : [facility], [address] [place] [address], [id number] status? No [facility] Comment:Testing performed by : [facility], [address] [place] [address], [phone] Group care resident? No [facility] Comment:Testing performed by : [facility], [address] [place] [address], [address] Hospitalized? No [facility] Comment:Testing performed by : [facility], [address] [place] [address], [id number] Is patient in ICU? No [facility] Comment:Testing performed by : [facility], [address] [place] [address], [id number] Symptomatic as defined by CDC? No [facility]:Testing performed by : [facility], [address] [place] [address], [id number] Nasopharyngeal 07/22/2020 11 :11 AM MANAGER CAMP 07/22/2020 6:33 PM MANAGER CAMP Narrative [facility] - 07/23/2020 7:47 AM MANAGER CAMP What is the reason for testing?->Screening prior to scheduled procedure or surgery Clementina Monroe MD LAB MICROBIOLOGY - GENER AL ORDERABLES Final Result [facility] Department [place] [address] documented in this encounter Visit Diagnoses Diagnosis Pre-procedure lab exam- Primary Pre-procedural laboratory examination Pre-procedure lab exam Pre-procedural laboratory examination documented in this encounter Care Teams Ammonium Hydroxide Operator Relationship Specialty Start Date End Date Enmanuel Gan MD [address] [place] [address] PCP - General Internal Medicine 04/26/20 Tg Houston MD [address] [facility] [address] [place] [address] Consulting Physician Cardiology 07/18/20 documented as of this encounter
--- OUTSIDE RECORDS SUMMARY | 2024-07-12 08:55 | XMS_ITS | Encounter Summary ---
Author Organization [facility] Address [address] [place] [address] Phone Care Team Providers Care Hot Die Press Feeder Name Role Phone Enmanuel Gan MD Primary Care Provider [phone] Encounter Details Date Type Department Care Team (Late st Contact Info) Description 07/13/2020 Orders Only [facility] Orthopaedic Surgery [address] 6th [place] [address] [place] [id number] Jeremy Michelle MD [address] [facility] [address] [place] [address] Prophylactic antibiotic (Primary Dx) Social History Tobacco Use Types Packs/Day Years Used Date Smoking Tobacco: Never Smokeless Tobacco: Never Alcohol Use Standard Drinks/Week Comments Yes 5 (1 standard drink = 0.6 oz pur e alcohol) Comments No Sex and Gender Information Value Date Recorded Sex Assigned at Not on file Legal Sex Female 9:09 PM CRANE HOOKER Gender Identity Not on file Sexual Orientation Lesbian 05/24/2019 9: 06 AM CDT documented as of this encounter Ordered Prescriptions Prescription Sig Dispense Quantity Refills Last Filled Start Date End Date mupirocin (BACTROBAN) 2 % ointment Apply topically 2 (two) times a day for 5 days APPLY TO NOSTRILS TWICE A DAY FOR 5 DAYS PRIOR TO SURGERY. 22 g 07/13/2020 0 documented in this encounter Plan of Treatment Not on file documented as of this encounter Visit Diagnoses Diagnosis Prophylactic antibiotic- Primary Encounter for long-term (current) use of antibiotics documented in this encounter Care Teams Hot Die Press Feeder Relationship Specialty Start Date End Date Enmanuel Gan MD [address] [facility] [facility] [facility] [address] [place] [address] PCP - General Internal Medicine 04/26/20 documented as of this encounter
--- OUTSIDE RECORDS SUMMARY | 2024-07-12 08:55 | XMS_ITS | Encounter Summary ---
Author Organization [facility] Address [address] [place] [address] Phone Care Team Providers Care Green Marketing Specialist Name Role Phone Enmanuel Gan MD Primary Care Provider [phone] Encounter Details Date Type Department Care Team (Latest Contact Info) Description 07/16/2020 3:00 PM DURALUMIN MECHANIC Clinical Support [facility] Orthopaedic Surgery [address] [facility] [address] 6th [place] [address] [place] [address] Late effects of spine fusion (Primary Dx) Social History Tobacco Use Types Packs/Day Years Used Date Smoking Tobacco: Never Smokeless Tobacco: Never Alcohol Use Standard Drinks/Week Comments Yes 5 (1 standard drink = 0.6 oz pur e alcohol) Comments No Sex and Gender Information Value Date Recorded Sex Assigned at Not on file Legal Sex Female 9:09 PM DURALUMIN MECHANIC Gender Identity Not on file Sexual Orientation Lesbian 05/24/2019 9: 06 AM CDT documented as of this encounter Progress Notes * Cyndie Byers RN - 07/16/2020 3:00 PM CST I was asked to see Macie Briseno regarding surgery. She is interested in scheduling PSF Revision. I have scheduled this surgical procedure for 07/25/20. 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 We reviewed indications for surgery, alternative treatment options, risks of surgery, and expected benefits. We discussed preoperative preparations including testing and consultations needed prior [id number], the hospital course and stay of 5-7 days, the pain management protocol, possible rehabilitation after surgery, and return to work estimates. We reviewed xrays and spine models. I have scheduled the preadmission testing appointment in the [facility] center for 07/13/2020. She completed the preoperative questionnaires and we reviewed the wake up test. The surgical procedure consent, blood transfusion consent, and narcotic agreement forms were reviewed with the patient and obtained in the office today. She was given surgery instructions, instructions to stop all NSAID's, blood thinners and aspirin products 5 days before surgery, and told not to take any NSAID's for at least 9 months postoperatively until the bone is fused. Surgery arrival time is 0630. She was told to call the office if she has any additional questions prior to her surgery date. She verbalized understanding of these instructions. The Posterior Spinal Fusion booklet was given. PCP: Enmanuel Gan MD Angela Hileman BSN RN Nurse Coordinator to Dr. Jeremy Michelle LUMIN MECHANIC documented in this encounter Plan of Treatment Not on file documented as of this encounter Visit Diagnoses Diagnosis Late effects of spine fusion- Primary documented in this encounter Care Teams Green Marketing Specialist Relationship Specialty Start Date End Date Enmanuel Gan MD [address] [facility] [address] [place] [address] PCP - General Internal Medicine 04/26/20 documented as of this encounter
--- OUTSIDE RECORDS SUMMARY | 2024-07-12 08:55 | XMS_ITS | Encounter Summary ---
Author Organization [facility] Address [address] [place] [address] Care Team Providers Care Web Development Director Name Role Phone Enmanuel Gan MD Primary Care Provider [phone] Tg Houston MD Unavailable [phone] Reason for Visit * Reason Comments Microvascular angina Encounter Details Date Type Department Care Team (Late st Contact Info) Description 07/16/2020 1:00 PM LIGHTING ENGINEER Office Visit [facility] Medical [facility] Cardiology [address] [place] [address] Tg Houston MD [address] [place] [address] [address] [place] [address] Paroxysmal atrial fibrillation (CMS/HCC) (Primary Dx); Essential hypertension; Microvascular angina (CMS/HCC) Social History Tobacco Use Types Packs/Day Years Used Date Smoking Tobacco: Never Smokeless Tobacco: Never Alcohol Use Standard Drinks/Week Comments Yes 5 (1 standard drink = 0.6 oz pur e alcohol) Comments No Sex and Gender Information Value Date Recorded Sex Assigned at Not on file Legal Sex Female 9:09 PM LIGHTING ENGINEER Gender Identity Not on file Sexual Orientation Lesbian 05/24/2019 9: 06 AM CDT documented as of this encounter Last Filed Vital Signs Vital Sign Reading Time Taken Comments Blood Pressure 118/68 07/16/2020 1:17 PM LIGHTING ENGINEER Pulse 70 07/16/2020 1:17 PM LIGHTING ENGINEER Temperature - - Respiratory Rate - - Oxygen Saturation - - Inhaled Oxygen Concentration - - Weight 78.1 kg (172 lb 3.2 oz) 07/16/2020 1:17 P M LIGHTING ENGINEER Height 163.8 cm (5' 4.5 ) 07/16/2020 1:17 PM LIGHTING ENGINEER Body Mass Index 29.1 07/16/2020 1:17 PM LIGHTING ENGINEER documented in this encounter Progress Notes * Tg Houston MD - 07/16/2020 1:00 PM CST Patient Name: Macie Briseno Provider: Tg Houston MD : 1945 Date of Service: 07/16/2020 Referring: Elvia CHIEF COMPLAINT: Microvascular angina Paroxysmal atrial fibrillation HISTORY OF PRESENT ILLNESS: 74 y.o. 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 She has been managed with calcium channel nayana therapy. Since I last saw her she was hospitalized in early June at [facility] with prolonged chest discomfort (different from her usual microvascular angina) associated with mild troponin elevation. An echocardiogram and Lexiscan study were unremarkable, and her diagnosis was unclear until her symptoms recurred on the day of anticipated discharge and corresponded with atrial fibrillation. She was anticoagulated and started on flecainide and has had no further episodes since. She is scheduled to undergo extensive back surgery by Dr. Michelle at [place] on 07/25/2020. A preop EKG from 07/13/2020 is abnormal, but unchanged for her. MEDICATIONS: Outpatient Encounter Medications as of 07/16/2020 Medication Sig Dispense Refill ??? ALPRAZolam (XANAX) 0.25 mg tablet Take 2 tablets (0.5 mg total) by mouth 2 (two) times a day asneeded (dizziness) (Patient taking differently: Take 0.5 mg by mouth nightly as needed ) 60 tablet 1 ??? ascorbic acid (ascorbic acid with indira [...] 100 mcg by mouth every morning ??? cyclobenzaprine (FLEXERIL) 10 mg tablet Take 10 mg by mouth nightly ??? diltiazem (TIAZAC) 180 mg 24 hr capsule take 1 capsule (180MG) by oral route every day (Patienttaking differently: Take 180 mg by mouth every morning ) 90 3 ??? DULoxetine DR (CYMBALTA) 30 mg capsule Take 60 mg by mouth every morning ??? Eliquis 5 mg tablet Take 5 mg by mouth 2 (two) times a day ??? fexofenadine (THELMA) 180 mg tablet Take 180 mg by mouth daily as needed ??? flecainide (TAMBOCOR) 100 mg tablet Take 100 mg by mouth 2 (two) times a day ??? fluticasone (FLONASE) 50 mcg/actuation nasal spray inhale 1 spray (50MCG) by intranasal route every day in each nostril (Patient taking differently: Administer into each nostril nightly ) 0 ??? HYDROcodone-acetaminophen (NORCO) 5-325 mg per tablet Take 1 tablet by mouth every 6 (six) hours as needed for pain 10 tablet 0 ??? magnesium citrate 100 mg tablet Take 1 tablet by mouth every morning ??? montelukast (SINGULAIR) 10 mg tablet Take 10 mg by mouth nightly ??? mupirocin (BACTROBAN) 2 % ointment Apply topically 2 (two) times a day for 5 days APPLY TO NOSTRILS TWICE A DAY FOR 5 DAYS PRIOR TO SURGERY. 22 g 0 ??? omega-3 fatty acids-fish oil 300-1,000 mg capsule Take 2 g by mouth every morning ??? potassium chloride ER 20 mEq CR tablet Take 40 mEq by mouth every morning ??? triamterene-hydroCHLOROthiazide 37.5-25 mg per capsule TAKE ONE CAPSULE BY MOUTH ONCE DAILY (Patient taking differently: Take 1 tablet/capsule by mouth every morning ) 90 capsule 3 No facility-administered encounter medications on file as of 07/16/2020. REVIEW OF SYSTEMS: General: No fever, chills, [...] excessive bleeding or bruising PHYSICAL EXAM: Vitals: 07/16/20 1317 BP: 118/68 Pulse: 70 Weight: 78.1 kg (172 lb 3.2 oz) Height: 163.8 cm (5' 4.5 ) Body mass index is 29.1 kg/m??. General: Well appearing, No pain or distress, well nourished. Her partner joins us by speaker phone. Eyes: AYUSH/EOMI, Conjuctiva Clear ENT: External ears/nose [...] normal affect Neurologic: awake/alert, no focal deficits Extensive records reviewed from [facility], including echo and stress test. EKG done at [facility] on 07/13/2020 reviewed. ASSESSMENT & PLAN: Diagnoses and all orders for this visit: Paroxysmal atrial fibrillation (CMS/HCC) (Primary) Assessment & Plan: Recent diagnosis of paroxysmal atrial fibrillation as [...] back surgery, for which she is cleared. Sheshould be at low risk of cardiac complications in the course of this. Essential hypertension Assessment & Plan: Blood pressure is adequately controlled on current regimen. No change was made. Microvascular angina (CMS/HCC) Assessment & Plan: Well controlled with diltiazem which she should continue. TING ENGINEER documented in this encounter Miscellaneous Notes * Assessment & Plan Note - Tg Houston MD - 07/16/2020 1:56 PM LIGHTING ENGINEER Associated Problem(s): Microvascular angina (HCC) Well controlled with diltiazem which she should continue. TING ENGINEER * Assessment & Plan Note - Tg Houston MD - 07/16/2020 1:56 PM LIGHTING ENGINEER Associated Problem(s): Essential hypertension (Deleted) Blood pressure is adequately controlled on current regimen. No change was made. TING ENGINEER * Assessment & Plan Note - Tg Houston MD - 07/16/2020 1:54 PM LIGHTING ENGINEER Associated Problem(s): Paroxysmal atrial fibrillation (CMS/HCC) (HCC) Recent diagnosis of paroxysmal atrial fibrillation as [...] back surgery, for which she is cleared. Sheshould be at low risk of cardiac complications in the course of this. TING ENGINEER documented in this encounter Plan of Treatment Not on file documented as of this encounter Procedures Procedure Name Priority Date/Time Associated Diagnosis Comments LIPID PANEL Routine 07/16/2020 1:28 PM LIGHTING ENGINEER documented in this encounter Results * (ABNORMAL) Lipid panel (07/16/2020 1:28 PM LIGHTING ENGINEER) SCRIBED Cholesterol, Total 168 0 - 200 EXTERNAL LAB SCRIBED HDL 61 0 - 100 EXTERNAL LAB SCRIBED LDL 70 0 - 150 EXTERNAL LAB SCRIBED Triglycerides 183(A) 0 - 150 EXTERNAL LAB Blood specimen (specimen) 07/16/2020 1:28 PM LIGHTING ENGINEER us Rg Read MD LAB BLOOD ORDERABLES Final Res ult EXTERNAL LAB documented in this encounter Visit Diagnoses Diagnosis Paroxysmal atrial fibrillation (CMS/HCC) (HCC)- Primary Atrial fibrillation Essential hypertension Unspecified essential hypertension Microvascular angina (HCC) documented in this encounter Care Teams Web Development Director Relationship Specialty Start Date End Date Enmanuel Gan MD [address] [place] [address] PCP - General Internal Medicine 04/26/20 Tg Houston MD [address] [place] [address] Consulting Physician Cardiology 07/18/20 documented as of this encounter
--- OUTSIDE RECORDS SUMMARY | 2024-07-12 08:56 | XMS_ITS | Encounter Summary ---
Author Organization [facility] Address [address] [place] [address] Care Team Providers Care Taxi Driver Name Role Phone Enmanuel Gan MD Primary Care Provider [phone] Encounter Details Date Type Department Care Team (Late st Contact Info) Description 06/28/2020 Orders Only [facility] Cardiology [address] [place] [id number] Frankie Hawthorne MD [id number] [place] [address] Social History Tobacco Use Types Packs/Day Years Used Date Smoking Tobacco: Never Smokeless Tobacco: Never Alcohol Use Standard Drinks/Week Comments Yes 5 (1 standard drink = 0.6 oz pur e alcohol) Comments No Sex and Gender Information Value Date Recorded Sex Assigned at Not on file Legal Sex Female 9:09 PM CHEMISTRY DEPARTMENT CHAIR Gender Identity Not on file Sexual Orientation Lesbian 05/24/2019 9: 06 AM CDT documented as of this encounter Plan of Treatment Not on file documented as of this encounter Procedures Procedure Name Priority Date/Time Associated Diagnosis Comments CARDIOLOGY DOCUMENT SCAN Routine 06/28/2020 documented in this encounter Results * SCAN - CARDIOLOGY (06/28/2020) Anatomical Region Laterality Modality Other Frankie Hawthorne MD CV CARDIAC SERVICES PROC EDURES Final Result documented in this encounter Visit Diagnoses Not on filedocumented in this encounter Care Teams Taxi Driver Relationship Specialty Start Date End Date Enmanuel Gan MD [address] [facility] [address] [place] [address] PCP - General Internal Medicine 04/26/20 documented as of this encounter
--- OUTSIDE RECORDS SUMMARY | 2024-07-12 08:56 | XMS_ITS | Encounter Summary ---
Author Organization [facility] Address [address] [place] [address] Care Team Providers Care Motion Picture Set Grip Name Role Phone Enmanuel Gan MD Primary Care Provider [phone] Encounter Details Date Type Department Care Team (Late st Contact Info) Description 06/28/2020 Orders Only [facility] Cardiology [address] [place] [phone] Frankie Hawthorne MD [id number] [place] [address] Social History Tobacco Use Types Packs/Day Years Used Date Smoking Tobacco: Never Smokeless Tobacco: Never Alcohol Use Standard Drinks/Week Comments Yes 5 (1 standard drink = 0.6 oz pur e alcohol) Comments No Sex and Gender Information Value Date Recorded Sex Assigned at Not on file Legal Sex Female 9:09 PM INFECTION CONTROL RN Gender Identity Not on file Sexual Orientation [...] on filedocumented in this encounter Care Teams Motion Picture Set Grip Relationship Specialty Start Date End Date Enmanuel Gan MD [address] [facility] [address] [place] [address] PCP - General Internal Medicine 04/26/20 documented as of this encounter
--- OUTSIDE RECORDS SUMMARY | 2024-07-12 08:56 | XMS_ITS | Encounter Summary ---
Author Organization [facility] Healthcare Address [address] [place] [address] Care Team Providers Care Press Hand Name Role Phone Enmanuel Gan MD Primary Care Provider [phone] Encounter Details Date Type Department Care Team (Late st Contact Info) Description 07/10/2020 11:40 AM DISABILITY REPRESENTATIVE Lab [facility] Advanced Medicine [facility] Advanced Medicine (CAM) [address] [place] [phone] Jeremy Michelle MD [facility] [facility] [place] [place] [address] History of spinal fusion for scoliosis Discharge Disposition: Discharge to home or self care Social History Tobacco Use Types Packs/Day Years Used Date Smoking Tobacco: Never Smokeless Tobacco: Never Alcohol Use Standard Drinks/Week Comments Yes 5 (1 standard drink = 0.6 oz pur e alcohol) Comments No Sex and Gender Information Value Date Recorded Sex Assigned at Not on file Legal Sex Female 9:09 PM DISABILITY REPRESENTATIVE Gender Identity Not on file Sexual Orientation Lesbian 05/24/2019 9: 06 AM CDT documented as of this encounter Discharge Disposition Disposition Code Departure Means Destination Discharge to home or self care documented in this encounter Plan of Treatment Not on file documented as of this encounter Procedures Procedure Name Priority Date/Time Associated Diagnosis Comments DIFFERENTIAL AUTO Routine 07/10/2020 11: 02 AM DISABILITY REPRESENTATIVE History of spinal fusion for scoliosis CBC WITH AUTO DIFFERENTIAL Routine 07/10/2020 11:02 AM DISABILITY REPRESENTATIVE History of spinal fusion for scoliosis ERYTHROCYTE SEDIMENTATION RATE Routine 07/10/2020 11:02 AM DISABILITY REPRESENTATIVE History of spinal fusion for scoliosis CRP (ACUTE PHASE) Routine 07/10/2020 11: 02 AM DISABILITY REPRESENTATIVE History of spinal fusion for scoliosis documented in this encounter Results * Differential, auto (07/10/2020 11:02 AM DISABILITY REPRESENTATIVE) Neutrophil abs 4.0 1.7 - 6.5 K/cumm [facility] Imm gran abs 0.0 0.0 - 0.1 K/cumm [facility] Lymphocyte abs 1.4 0.8 - 3.3 K/cumm [facility] Monocyte abs 0.5 0.2 - 0.8 K/cumm [facility] Eosinophil abs 0.2 0.0 - 0.5 K/cumm [facility] Basophil abs 0.0 0.0 - 0.1 K/cumm [facility] Neutrophil pct 65.5 % [facility] Comment: Interpretive Data Percent cell count reference ranges are not reported, since discordance with absolute values may lead to misinterpretation of CBC data. Current Interpretive Data was last revised on 2017. Imm gran pct 0.3 % [facility] Comment: Interpretive Data Percent cell count reference ranges are not reported, since discordance with absolute values may lead to misinterpretation of CBC data. Current Interpretive Data was last revised on 2017. Lymphocyte pct 22.9 % [facility] Comment: Interpretive Data Percent cell count reference ranges are not reported, since discordance with absolute values may lead to misinterpretation of CBC data. Current Interpretive Data was last revised on 2017. Monocyte pct 7.3 % [facility] Comment: Interpretive Data Percent cell count reference ranges are not reported, since discordance with absolute values may lead to misinterpretation of CBC data. Current Interpretive Data was last revised on 2017. Eosinophil pct 3.3 % [facility] Comment: Interpretive Data Percent cell count reference ranges are not reported, since discordance with absolute values may lead to misinterpretation of CBC data. Current Interpretive Data was last revised on 2017. Basophil pct 0.7 % [facility] Comment: Interpretive Data Percent cell count reference ranges are not reported, since discordance with absolute values may lead to misinterpretation of CBC data. Current Interpretive Data was last revised on 2017. Blood specimen (specimen) 07/10/2020 11:02 AM DISABILITY REPRESENTATIVE 07/10/2020 11:20 AM DISABILITY REPRESENTATIVE Jeremy Michelle MD LAB BLOOD ORDERABLES Final Result Performing Organization Address City/[facility]/ZIP Co de Phone Number [facility] [place] [address] * CBC with auto differential (07/10/2020 11:02 AM DISABILITY REPRESENTATIVE) WBC 6.2 3.8 - 9.9 K/cumm [facility] Hgb 13.3 11.9 - 15.5 g/dL [facility] Hct 39.7 35.6 - 45.5 % [facility] Plt 269 150 - 400 K/cumm [facility] MPV 9.8 9.1 - 12.3 fL [facility] RBC 4.59 3.90 - 5.20 M/cumm [facility] MCV 86.5 81.3 - 96.4 fL [facility] MCH 29.0 27.1 - 33.3 pg [facility] MCHC 33.5 32.3 - 35.7 g/dL [facility] RDW CV 13.8 11.1 - 14.9 % [facility] RDW SD 42.9 35.7 - 48.1 fL [facility] NRBC abs 0.00 0.00 - 0.01 K/cumm [facility] Blood specimen (specimen) 07/10/2020 11:02 AM DISABILITY REPRESENTATIVE 07/10/2020 11:20 AM DISABILITY REPRESENTATIVE Jeremy Michelle MD LAB BLOOD ORDERABLES Final Result Performing Organization Address City/[facility]/ZIP Co de Phone Number [facility] [place] [address] * Erythrocyte sedimentation rate (07/10/2020 11:02 AM DISABILITY REPRESENTATIVE) Erythrocyte sedimentation rate 8 1 - 30 mm/hr [facility] Blood specimen (specimen) 07/10/2020 11:02 AM DISABILITY REPRESENTATIVE 07/10/2020 11:20 AM DISABILITY REPRESENTATIVE Jeremy Michelle MD LAB BLOOD ORDERABLES Final Result Performing Organization Address City/[facility]/[place] [address] * CRP (acute phase) (07/10/2020 11:02 AM DISABILITY REPRESENTATIVE) CRP 2.3 <=10.0 mg/L [facility] Blood specimen (specimen) 07/10/2020 11:02 AM DISABILITY REPRESENTATIVE 07/10/2020 11:20 AM DISABILITY REPRESENTATIVE Jeremy Michelle MD LAB BLOOD ORDERABLES Final Result Performing Organization Address [facility] [place] [address] documented in this encounter Visit Diagnoses Diagnosis History of spinal fusion for scoliosis documented in this encounter Care Teams Press Hand Relationship Specialty Start Date End Date Enmanuel Gan MD [address] [facility] [address] [place] [address] PCP - General Internal Medicine 04/26/20 documented as of this encounter
--- OUTSIDE RECORDS SUMMARY | 2024-07-12 08:56 | XMS_ITS | Encounter Summary ---
Author Organization [facility] Address [address] [place] [address] Phone Care Team Providers Care Artillery Officer Name Role Phone Enmanuel Gan MD Primary Care Provider [phone] Reason for Referral * Neurology (Routine) - Closed Specialty Diagnoses / Procedures Referred By Contac t Referred To Contact Diagnoses Neuropathy of both feet History of spinal fusion for scoliosis Procedures EMG/NCV -Please select the performing region: [facility] (All Locations); Procedure performed at: [facility] EMG Lab; Clinical Summary: surgery planning; Reason for referral or diagnostic question: BLE EMG; Ultrasound: As determined by exam... Jeremy Michelle MD [address] [place] [address] Phone: tel: fax: [facility] (All Locations) Referral ID Status Reason Start Date Expiration Date Visits Re quested Visits Authorized [id number] Closed 07/10/2020 08/09/2021 1 1 UATE STUDENT * Diagnostic Imaging (Routine) - Closed Specialty Diagnoses / Procedures Referred By Contac t Referred To Contact Diagnoses History of spinal fusion for scoliosis Procedures XR Spine Thoracolumbar Junction 2 or More Views Jeremy Michelle MD [address] [place] [address] Phone: tel: fax: [facility] [address] [facility] [address] Referral ID Status Reason Start Date Expiration Date Visits Re quested Visits Authorized [id number] Closed 07/10/2020 08/09/2021 1 1 UATE STUDENT Encounter Details Date Type Department Care Team (Late st Contact Info) Description 07/10/2020 8:10 AM GRADUATE STUDENT Office Visit [facility] Orthopaedic Surgery [address] [facility] 12th [place] [address] [place] [address] Jeremy Michelle MD [address] [facility] [address] [place] [address] History of spinal fusion for scoliosis (Primary Dx); Neuropathy of both feet Social History Tobacco Use Types Packs/Day Years Used Date Smoking Tobacco: Never Smokeless Tobacco: Never Alcohol Use Standard Drinks/Week Comments Yes 5 (1 standard drink = 0.6 oz pur e alcohol) Comments No Sex and Gender Information Value Date Recorded Sex Assigned at Not on file Legal Sex Female 9:09 PM GRADUATE STUDENT Gender Identity Not on file Sexual Orientation Lesbian 05/24/2019 9: 06 AM CDT documented as of this encounter Last Filed Vital Signs Vital Sign Reading Time Taken Comments Blood Pressure - - Pulse - - Temperature - - Respiratory Rate - - Oxygen Saturation - - Inhaled Oxygen Concentration - - Weight 78 kg (172 lb) 07/10/2020 8:20 AM GRADUATE STUDENT Height 165.1 cm (5' 5 ) 07/10/2020 8:20 AM GRADUATE STUDENT Body Mass Index 28.62 07/10/2020 8:20 AM GRADUATE STUDENT documented in this encounter Patient Instructions * Patient Instructions* Cyndie Byers RN - 07/10/2020 8:10 AM GRADUATE STUDENT Thank you for your visit today we are pleased to be here to assist with your spine needs. 1. Please obtain labs on the 3rd floor 2. Xray completed 3. EMG as scheduled below Sincerely, Dr. Jeremy Michelle & Cyndie Byers RN Please contact Dr. Miguel Angel Agee's Nurse if you have any questions. UATE STUDENT documented in this encounter Progress Notes * Jeremy Michelle MD - 07/10/2020 8:10 AM CST Images from the original note were not included. 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 She has back pain as well as right radicular type pain. She underwent back surgeries in 2017, 2018, in 2019. 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 She has hardware from L2-L4 right now. She is here withcomplaints of worsening back pain, difficulty ambulating as well as right-sided L2-3 type radicularpain. She has had previous hip replacement with Dr. An and has done well from this. She is here today with her partner and is very pleasant. She previously saw my senior application security consultant Dr. Hunt with a talked about possible revision. She is a nonsmoker and otherwise fairly healthy. Recent cochlear implants. Past Medical History, Past Surgical History, Initial Review of Medications, Drug Allergies, Social History, Family History, and Review of Systems Past Medical History: Diagnosis Date ??? Auditory vertigo Meniere's disease ??? Meniere's disease ??? Microvascular angina (CMS/HCC) Past Surgical History: Procedure Laterality Date ??? BACK SURGERY 2017 lower back, 2018, 2019 ??? CHOLECYSTECTOMY Cholecystectomy ??? JOINT REPLACEMENT Hip replacement, L - 2013, R - 2014 ??? OTHER SURGICAL HISTORY 1998 Sectioning of left vesibular nerve ??? VESTIBULAR NERVE SECTION Left Current Outpatient Medications Medication Sig Dispense Refill [...] morning ??? Eliquis 5 mg tablet ??? fexofenadine (THELMA) 180 mg tablet Take 180 mg by mouth daily as needed ??? flecainide (TAMBOCOR) 100 mg tablet ??? fluticasone (FLONASE) 50 mcg/actuation nasal spray inhale 1 spray (50MCG) by intranasal route every day in each nostril (Patient taking differently: Administer into each nostril daily as needed )0 ??? HYDROcodone-acetaminophen (NORCO) 5-325 mg per tablet [...] differently: Take 0.5 mg by mouth nightly ) 60 tablet 1 ??? collagen, hydrolysate, bovine, (collagen, hydr, bovine,, bulk,) 100 % powder every morning ??? methylPREDNISolone (Medrol, George,) 4 mg Dosepack follow package directions (Patient not taking: Reported on 07/10/2020) 1 packet 0 ??? turmeric root extract 500 mg capsule Take 1 capsule by mouth every morning No current facility-administered medications for this visit. Allergies Allergen Reactions ??? Adhesive Rash and Blisters Surgical tape ??? Sulfa (Sulfonamide Antibiotics) ??? Gabapentin Other (See comments) Retain water Social History Socioeconomic History ??? Marital status: Spouse name: Not on file ??? Number of children: Not on file ??? Years of education: Not on file ??? Highest education level: Not on file Occupational History ??? Not on file Social Needs ??? Financial resource strain: Not on file ??? Food insecurity Worry: Not on file Inability: Not on file ??? Transportation needs Medical: Not on file Non-medical: Not on file Tobacco Use ??? Smoking status: Never Smoker ??? Smokeless tobacco: Never Used Substance and Sexual Activity ??? Alcohol use: Yes Alcohol/week: 5.0 standard drinks Types: 5 Glasses of wine per week ??? Drug use: Yes Comment: cbd oil topically ??? Sexual activity: Not on file Lifestyle ??? Physical activity Days per week: Not on file Minutes per session: Not on file ??? Stress: Not on file Relationships ??? Social connections Talks on phone: Not on file Gets together: Not on file Attends church service: Not on file Active member of club or organization: Not on file Attends meetings of clubs or organizations: Not on file Relationship status: Not on file ??? Intimate partner violence Fear of current or ex partner: Not on file Emotionally abused: Not on file Physically abused: Not on file Forced sexual activity: Not on file Other Topics Concern ??? Not on file Social History Narrative General Social History Comments: female spouse Family History Problem Relation Age of Onset [...] Neg Hx ??? Sudden Cardiac Neg Hx Review of Systems A complete review of systems was obtained from the patient and is positive for: Malaise fatigue weakness tinnitus chest pain claudication leg swelling shortness of breath tingling back pain depression nervous anxious. It is otherwise negative. Physical Examination WEIGHT/BMI: Estimated body mass index [...] 1+patella 1+ achilles Downgoing toes <2b clonus Op on exam she has a lot of pain at the thoracolumbar junction Otherwise she is intact throughout Negative straight leg raise BL Review of Plain Radiographs/Studies Imaging was reviewed by me. On her plain films she stands with an SVA of 2. She has a lumbar lordosis from L1-S1 of 47 and PI of 68. Overall she stands with relatively good balance. On her CT scan she has previous [...] noted in the joint also at T11-12. On her thoracolumbar bending films I do not appreciate much movement a to P. On her MRI she has stenosis noted at L1-2. Foraminal stenosis is difficult to appreciate given the metal. 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 We are going to revise her from either T12 or L1-L4. We will remove the old instrumentation and replace it. We will decompress her where she needs to be decompressed and will use BMP as well as bone graft. We will use allograft chips as well as possible use of a structural allograft posteriorly. The patient really does not want to [...] with removal of old hardware and decompression. Because on her CT scan she has [...] a separate issue and 2nd separate surgery. Finally given her L2-3 type pain on the right side I do think it would help to get an EMG of her bilateral lower extremities. I think this will help us in determining how aggressive to be with the foraminotomies. We will get infectious labs ESR CRP CBC We will make sure we have her old operative reports L2-4 removal of hardware, L1-4 posterior spinal instrumented fusion, laminectomy at L1 and L2 with foraminotomies at L1-2, L2-3, L3-4. Jeremy Michelle MD PhD Attending Spine Surgeon Recoverer of Orthopaedic and Neurological Surgery [facility] Orthopaedics [facility] Supervisor Travel Information Center done by [employer]; therefore, variances and inaccuracies may occur. I reviewed the patient problem list pertinent to the visit today, but the entire patient problem list was not reviewed today. Jeremy Michelle MD PhD Attending Spine Surgeon Recoverer of Orthopaedic and Neurological Surgery [facility] Orthopaedics [facility] UATE STUDENT documented in this encounter Plan of Treatment Not on file documented as of this encounter Results * EMG/NCV (07/23/2020 9:30 AM GRADUATE STUDENT) Anatomical Region Laterality Modality Other Narrative 07/23/2020 9:30 AM GRADUATE STUDENT Kiran Fisher MD ? 07/23/2020 ??1:24 PM EMG/NCV -Please select the performing region: [facility] (All Locations); Procedure performed at: [facility] EMG Lab; Clinical Summary: surgery planning; Reason for referral or diagnostic question: BLE EMG; Ultrasound: As determined by exam... Date/Time: 07/23/2020 1:24 PM Performed by: Kiran Fishre MD Authorized by: Jeremy Michelle MD us Jeremy Michelle MD NEUROLOGY ORDERABLES Final Result * CRP (acute phase) (07/10/2020 11:02 AM GRADUATE STUDENT) CRP 2.3 <=10.0 mg/L [facility] Blood specimen (specimen) 07/10/2020 11:02 AM GRADUATE STUDENT 07/10/2020 11:20 AM GRADUATE STUDENT us Jeremy Michelle MD LAB BLOOD ORDERABLES Final Result Performing Organization Address [facility]/ZIP Co de Phone Number [facility] Department [place] [address] * Erythrocyte sedimentation rate (07/10/2020 11:02 AM GRADUATE STUDENT) Erythrocyte sedimentation rate 8 1 - 30 mm/hr [facility] Blood specimen (specimen) 07/10/2020 11:02 AM GRADUATE STUDENT 07/10/2020 11:20 AM GRADUATE STUDENT Jeremy Michelle MD LAB BLOOD ORDERABLES Final Result Performing Organization Address City/[facility]/ZIP Co de Phone Number [facility] [place] [address] * CBC with auto differential (07/10/2020 11:02 AM GRADUATE STUDENT) WBC 6.2 3.8 - 9.9 K/cumm [facility] Hgb 13.3 11.9 - 15.5 g/dL [facility] Hct 39.7 35.6 - 45.5 % [facility] Plt 269 150 - 400 K/cumm [facility] MPV 9.8 9.1 - 12.[address] [facility] RBC 4.59 3.90 - 5.20 M/cumm [facility] MCV 86.5 81.3 - 96.[address] [facility] MCH 29.0 27.1 - 33.[address] [facility] MCHC 33.5 32.3 - 35.7 g/dL [facility] RDW CV 13.8 11.1 - 14.9 % [facility] RDW SD 42.9 35.7 - 48.[address] [facility] NRBC abs 0.00 0.00 - 0.01 K/cumm [facility] Blood specimen (specimen) 07/10/2020 11:02 AM GRADUATE STUDENT 07/10/2020 11:20 AM GRADUATE STUDENT Jeremy Michelle MD LAB BLOOD ORDERABLES Final Result Performing Organization Address City/State/[facility] Co de Phone Number [facility] [place] [address] * XR Spine Thoracolumbar Junction 2 or More Views (07/10/2020 9:55 AM GRADUATE STUDENT) Anatomical Region Laterality Modality Spine N/A Computed Radiogr aphy 07/10/2020 10:4 2 AM GRADUATE STUDENT Impressions 07/10/2020 12:23 PM GRADUATE STUDENT Unchanged instrumented posterior spinal fusion from L2 to through 4, non-instrumented posterior spinal fusion from L4 through S1, discectomy with interbody fusion from L2 through S1, and posterior lumbar spinal decompression from L2 through the sacrum. Dictated by: Jhon Bond M.D. The radiology attending physician has personally reviewed this study, and had reviewed and/or edited this written report and agrees with it. Electronically signed by: Katina Wang M.D. Narrative 07/10/2020 12:23 PM GRADUATE STUDENT EXAMINATION: XR SPINE THORACOLUMBAR JUNCTION 2 OR MORE VIEWS HISTORY: Scoliosis status post lumbar spinal fusion, surgery planning COMPARISON: Lumbar spine radiographs 04/26/2020. FINDINGS: 4 radiographs of the thoracolumbar junction are submitted. There is unchanged combination instrumented posterior spinal fusion from L2 through L4, non-instrumented posterior spinal fusion from L4 through S1, discectomy with interbody fusion from L2 through S1, and lumbar spine posterior decompression from L2 through the sacrum. There is no motion at the fused segments. ??There is mild residual levocurvature of the lower lumbar spine. ??There is mild multilevel degenerative disc disease of the visualized lower thoracic spine. There are bilateral hip arthroplasties, partially imaged. ??Right upper quadrant abdominal clips are noted. Procedure Note Katina Wang MD - 07/10/2020 EXAMINATION: XR SPINE THORACOLUMBAR JUNCTION 2 OR MORE VIEWS HISTORY: Scoliosis status post lumbar spinal fusion, surgery planning COMPARISON: Lumbar spine radiographs 04/26/2020. FINDINGS: 4 radiographs of the thoracolumbar junction are submitted. There is unchanged combination instrumented posterior spinal fusion from L2 through L4, non-instrumented posterior spinal fusion from L4 through S1, discectomy with interbody fusion from L2 through S1, and lumbar spine posterior decompression from L2 through the sacrum. There is no motion at the fused segments. There is mild residual levocurvature of the lower lumbar spine. There is mild multilevel degenerative disc disease of the visualized lower thoracic spine. There are bilateral hip arthroplasties, partially imaged. Right upper quadrant abdominal clips are noted. IMPRESSION: Unchanged instrumented posterior spinal fusion from L2 to through 4, non-instrumented posterior spinal fusion from L4 through S1, discectomy with interbody fusion from L2 through S1, and posterior lumbar spinal decompression from L2 through the sacrum. Dictated by: Jhon Bond M.D. The radiology attending physician has personally reviewed this study, and had reviewed and/or edited this written report and agrees with it. Electronically signed by: Katina Wang M.D. us Jeremy Michelle MD IMG XR PROCEDURES Fi nal Result documented in this encounter Visit Diagnoses Diagnosis History of spinal fusion for scoliosis- Primary Neuropathy of both feet History of spinal fusion for scoliosis Neuropathy of both feet History of spinal fusion for scoliosis documented in this encounter Discontinued Medications Medication Sig Discontinue Reason Start Date End Da te HYDROcodone-acetaminophe n (NORCO) 5-325 mg per tabletIndications:Pain Take 1 tablet by mouth every 8 (eight) hours as needed Duplicate order 06/05/2020 07/10/2020 ibuprofen (ADVIL,MOTRIN) 800 mg tabletIndications:Pain Take 800 mg by mouth every 6 (six) hours as needed Alternate therapy 03/23/2020 07/10/2020 documented as of this encounter Care Teams Artillery Officer Relationship Specialty Start Date End Date Enmanuel Gan MD [address] [place] [address] PCP - General Internal Medicine 04/26/20 documented as of this encounter
--- OUTSIDE RECORDS SUMMARY | 2024-07-12 08:56 | XMS_ITS | Encounter Summary ---
Author Organization [facility] Address [address] [place] [address] Care Team Providers Care Tooth Cutter Clutch Name Role Phone Enmanuel Gan MD Primary Care Provider [phone] Encounter Details Date Type Department Care Team (Late st Contact Info) Description 06/28/2020 Orders Only [facility] Cardiology [address] [place] [phone] Frankie Hawthorne MD [address] [place] [address] Social History Tobacco Use Types Packs/Day Years Used Date Smoking Tobacco: Never Smokeless Tobacco: Never Alcohol Use Standard Drinks/Week Comments Yes 5 (1 standard drink = 0.6 oz pur e alcohol) Comments No Sex and Gender Information Value Date Recorded Sex Assigned at Not on file Legal Sex Female 9:09 PM POSITION CLASSIFIER Gender Identity Not on file Sexual Orientation [...] on filedocumented in this encounter Care Teams Tooth Cutter Clutch Relationship Specialty Start Date End Date Enmanuel Gan MD [address] [facility] [address] [place] [address] PCP - General Internal Medicine 04/26/20 documented as of this encounter
--- OUTSIDE RECORDS SUMMARY | 2024-07-12 08:56 | XMS_ITS | Encounter Summary ---
Author Organization [facility] Address [address] [place] [address] Phone Care Team Providers Care Second Chef Name Role Phone Enmanuel Gan MD Primary Care Provider Reason for Visit * Reason Comments Post-op pt here for post op. She had a Lt Cochlear Implant on 06/19 * Consultation (Routine) - Closed Specialty Diagnoses / Procedures Referred By Gigi orosco Referred To Contact Otolaryngology Diagnoses Meniere's disease of both ears Rg Read MD Phone: tel: fax: [facility] (All Locations) Referral ID Status Reason Start Date Expiration Date V isits Requested Visits Authorized [id number] Closed Specialty Services Required 03/17/2020 04/16/2021 3 3 Encounter Details Date Type Department Care Team (Latest Contact Info) Description 07/09/2020 10:20 AM PAINTER SHIPYARD Office Visit [facility] ([facility]) - [facility] ENT [address] [place] [address] [place] [id number] Darshana Toth MD [address] [place] [address] Sensorineural hearing loss (SNHL) of both ears (Primary Dx) Social History Tobacco Use Types Packs/Day Years Used Date Smoking Tobacco: Never Smokeless Tobacco: Never Alcohol Use Standard Drinks/Week Comments Yes 5 (1 standard drink = 0.6 oz pur e alcohol) Comments No Sex and Gender Information Value Date Recorded Sex Assigned at Not on file Legal Sex Female 9:09 PM PAINTER SHIPYARD Gender Identity Not on file Sexual Orientation Lesbian 05/24/2019 9: 06 AM CDT documented as of this encounter Progress Notes * Darshana Toth MD - 07/09/2020 10:20 AM CST Chief Complaint: Chief Complaint Patient presents with ??? Post-op pt here for post op. She had a Lt Cochlear Implant on 06/19 HPI: This is a 74 y.o. female who presents today for evaluation after undergoing left CI. Review of Systems A complete review of systems was completed by the patient on the Patient History Form and reviewed with the patient during the visit. The Patient History Form can be found in the electronic medical record as a scanned document. ASSESSMENT/PLAN The patient growing left cochlear implantation. She has done very well. She denies symptoms of otalgia, otorrhea, or vertigo. She is excited to proceed with activation. I will see her in conjunction with her 6 month evaluation. Darshana Toth M.D. Shot Coat Tender Director, [facility] Otology and Neurotology Department of Otolaryngology [facility] in [place] [email or web address] Office: Clinic: [facility] documented in this encounter Plan of Treatment Not on file documented as of this encounter Visit Diagnoses Diagnosis Sensorineural hearing loss (SNHL) of both ears- Primary documented in this encounter Historical Medications * This list may reflect changes made after this encounter. flecainide (TAMBOCOR) 100 mg tablet Take 100 mg by mouth 2 (two) times a day 06/29/2020 1 potassium chloride ER 20 mEq CR tabletIndications: supplement Take 2 tablets (40 mEq total) by mouth every morning 06/29/2020 4 Eliquis 5 mg tabletIndications: atrial fibrillation Take 5 mg by mouth 2 (two) times a day 06/29/2020 1 added in this encounter Care Teams Second Chef Relationship Specialty Start Date End Date Enmanuel Gan MD [address] [facility] [address] [place] [address] PCP - General Internal Medicine 04/26/20 documented as of this encounter
--- OUTSIDE RECORDS SUMMARY | 2024-07-12 08:56 | XMS_ITS | Encounter Summary ---
Author Organization [facility] Address [address] [place] [address] Care Team Providers Care Orientation And Mobility Instructor Name Role Phone Enmanuel Gan MD Primary Care Provider [phone] Encounter Details Date Type Department Care Team (Late st Contact Info) Description 06/29/[address] [facility] Cardiology [address] [place] [phone] Frankie Hawthorne MD [id number] [place] [address] Social History Tobacco Use Types Packs/Day Years Used Date Smoking Tobacco: Never Smokeless Tobacco: Never Alcohol Use Standard Drinks/Week Comments Yes 5 (1 standard drink = 0.6 oz pur e alcohol) Comments No Sex and Gender Information Value Date Recorded Sex Assigned at Not on file Legal Sex Female 9:09 PM FUR TRAPPER Gender Identity Not on file Sexual Orientation Lesbian 05/24/2019 9: 06 AM CDT documented as of this encounter Plan of Treatment Not on file documented as of this encounter Procedures Procedure Name Priority Date/Time Associated Diagnosis Comments CARDIOLOGY DOCUMENT SCAN Routine 06/29/2020 documented in this encounter Results * SCAN - CARDIOLOGY (06/29/2020) Anatomical Region Laterality Modality Other Frankie Hawthorne MD CV CARDIAC SERVICES PROC EDURES Final Result documented in this encounter Visit Diagnoses Not on filedocumented in this encounter Care Teams Orientation And Mobility Instructor Relationship Specialty Start Date End Date Enmanuel Gan MD [address] [facility] [address] [place] [address] PCP - General Internal Medicine 04/26/20 documented as of this encounter
--- OUTSIDE RECORDS SUMMARY | 2024-07-12 08:56 | XMS_ITS | Encounter Summary ---
Author Organization [facility] Address [address] [place] [address] Phone Care Team Providers Care Tie Fastener Name Role Phone Enmanuel Gan MD Primary Care Provider [phone] Encounter Details Date Type Department Care Team (Late st Contact Info) Description 07/09/2020 Orders Only [facility] Orthopaedic Surgery [address] [facility] Advanced Medicine 6th [place] [address] [place] [address] Jeremy Michelle MD [address] [facility] 6A/6B/12A [place] [address] History of spinal fusion for scoliosis (Primary Dx) Social History Tobacco Use Types Packs/Day Years Used Date Smoking Tobacco: Never Smokeless Tobacco: Never Alcohol Use Standard Drinks/Week Comments Yes 5 (1 standard drink = 0.6 oz pur e alcohol) Comments No Sex and Gender Information Value Date Recorded Sex Assigned at Not on file Legal Sex Female 9:09 PM BARREL RIFLER HOOK Gender Identity Not on file Sexual Orientation Lesbian 05/24/2019 9: 06 AM CDT documented as of this encounter Plan of Treatment Not on file documented as of this encounter Visit Diagnoses Diagnosis History of spinal fusion for scoliosis- Primary documented in this encounter Care Teams Tie Fastener Relationship Specialty Start Date End Date Enmanuel Gan MD [address] [place] [address] PCP - General Internal Medicine 04/26/20 documented as of this encounter
--- OUTSIDE RECORDS SUMMARY | 2024-07-12 08:56 | XMS_ITS | Encounter Summary ---
Author Organization [facility] Address [address] [place] [address] Phone Care Team Providers Care Skip Operator Name Role Phone Emnanuel Gan MD Primary Care Provider [phone] Encounter Details Date Type Department Care Team (Late st Contact Info) Description 07/11/2020 Telephone [facility] Orthopaedic Surgery [address] [facility] Advanced Medicine 6th [place] [address] [place] [address] Jeremy Michelle MD [address] [facility] 6A/6B/12A [place] [address] Social History Tobacco Use Types Packs/Day Years Used Date Smoking Tobacco: Never Smokeless Tobacco: Never Alcohol Use Standard Drinks/Week Comments Yes 5 (1 standard drink = 0.6 oz pur e alcohol) Comments No Sex and Gender Information Value Date Recorded Sex Assigned at Not on file Legal Sex Female 9:09 PM FLOATMAN Gender Identity Not on file Sexual Orientation Lesbian 05/24/2019 9: 06 AM CDT documented as of this encounter Miscellaneous Notes * Telephone Encounter - Cyndie Byers RN - 07/11/2020 3:33 PM FLOATMAN Fax sent to request Op notes from Dr. Negro Henry at [facility]. TMAN documented in this encounter Plan of Treatment Not on file documented as of this encounter Visit Diagnoses Not on filedocumented in this encounter Care Teams Skip Operator Relationship Specialty Start Date End Date Enmanuel Gan MD [address] [place] [address] PCP - General Internal Medicine 04/26/20 documented as of this encounter
--- OUTSIDE RECORDS SUMMARY | 2024-07-12 08:56 | XMS_ITS | Encounter Summary ---
Author Organization [facility] Address [address] [place] [address] Phone Care Team Providers Care Commodity Lead Name Role Phone Enmanuel Gan MD Primary Care Provider [phone] Reason for Visit * ENT (Routine) - Closed Specialty Diagnoses / Procedures Referred By Contwolfgang orosco Referred To Contact Diagnoses Sensory hearing loss, bilateral Procedures Audiogram Juan Carlos Jackson MD Phone: tel: fax: [facility] (All Locations) Referral ID Status Reason Start Date Expiration Date Visits Re quested Visits Authorized [id number] Closed 08/29/2019 03/09/2021 6 6 Encounter Details Date Type Department Care Team (Latest Contact Info) Description 07/09/2020 11:00 AM ELECTRICAL LINESWORKER Procedure visit [facility] Otolaryngology [facility] Advanced Medicine 11th [place] [address] [place] [address] Zee Garcia Au.D. [address] [place] [address] Sensorineural hearing loss, bilateral Social History Tobacco Use Types Packs/Day Years Used Date Smoking Tobacco: Never Smokeless Tobacco: Never Alcohol Use Standard Drinks/Week Comments Yes 5 (1 standard drink = 0.6 oz pur e alcohol) Comments No Sex and Gender Information Value Date Recorded Sex Assigned at Not on file Legal Sex Female 9:09 PM ELECTRICAL LINESWORKER Gender Identity Not on file Sexual Orientation Lesbian 05/24/2019 9: 06 AM CDT documented as of this encounter Procedure Notes * Zee Garcia Au.D. - 07/09/2020 11:00 AM CST Procedures MAPS in Processor: P1: map 2 (Cs&Ts-5) P2: map 1 (S&B) P3: map 3 (Cs&Ts+5) P4: map 4 (Cs&Ts+10) SERVICES PROVIDED: Programming - initial stimulation of CI PROCEDURES: The patient was in for initial stimulation appointment. The patient attended the session with her , Sunita. The patient reported: - Surgery went well and has healed well. No soreness. Pinna is not numb. - Tinnitus is still very loud, especially in the morning and only on the left side. It worsened after surgery and seems to be getting a little bit better. - Has not been able to sleep on her left due to discomfort - Patient asked a question about music - discussed using headphones over RE without COUCH and Kanso 2 on LE to listen to music Programming: Programming was completed to create an map for initial use of the processor. See custom sound software for details this date. Impedances were measured and were all okay. Headpiece was fit with magnet strength 3(i). A new map was created for initial use of the sound processor: 900 ALLEGRA, 8 max, 25 uS. ALJs were collected on all even electrodes and E1. C levels were set to medium-loud and T levels were set to first-hearing. C and T levels were interpolated. C levels were swept and balanced; rated medium. Minimal changes were made. T levels were swept and balanced; rated very-soft. Minimal changes were made. Prior to going live, levels were reduced by 10 overall. When live, patient reported sound was medium and sounded like Jj-Mouse. She reported she could hear words. She was able to repeat some Spondee words. All voices sounded the same. She reported sound was metallic and a static sound was present. Together with hearing aid sound was comfortable. Each side had a very distinct sound. This was saved as map 1. Progressive maps were created as indicated above. The final programs were loaded as indicated above. Aural Rehabilitation: Equipment Orientation: The patient's processor was paired to the [employer] remote and her [employer] 10 phone. The patient was shown how to operate the speech processor, the CR310 remote, and how to place the processor on the head. Patient downloaded the [employer] virgilio and was briefly counseled on using it for program and volume adjustments. Audio streaming was not enabled for now to allow for continued use of the phone with her hearing aid. The patient was given and counseled on the user guides, remote and charging/drying system. The backup sound processor, spare parts, accessories, and backpack will remain in the equipment closet for future dispensing. Adjustment Counseling - Handouts provided, Pt. to read over and will discuss next appointment Adjustment to low level environmental sounds and new sound quality Beginning to Use a Cochlear Implant/Voice Level/Speech Clarity Cochlear Implant Explanation (What We Want Other to Know...) Steps in using your speech processor Hierarchy of Listening Experiences Communication Strategy Training - Handouts provided General Listening Tips Listening Activity Checklist Auditory Training: Side by side reading Homework 1-4 IMPRESSIONS/PLAN: Wear sound processor as much as possible, wear schedule discussed Return for continued programming and aural rehabilitation Consider changing to 4(i) magnet - will order through [employer] as we do not have any in clinic to try out. Homework 1-4 TRICAL LINESWORKER documented in this encounter Plan of Treatment Not on file documented as of this encounter Visit Diagnoses Diagnosis Sensorineural hearing loss, bilateral documented in this encounter Orders Audiology Count Last Ordered Date First Orde red Date EVALUATION, COCHLEAR IMPLANT PROGRAMMING AND AUDITORY REHABILITATION 1 07/06/2020 documented in this encounter Care Teams Commodity Lead Relationship Specialty Start Date End Date Enmanuel Gan MD [address] [facility] [address] [facility] [address] [place] [address] PCP - General Internal Medicine 04/26/20 documented as of this encounter
--- OUTSIDE RECORDS SUMMARY | 2024-07-12 08:56 | XMS_ITS | Encounter Summary ---
Author Organization [facility] Address [address] [place] [address] Phone Care Team Providers Care Community Development Manager Name Role Phone Enmanuel Gan MD Primary Care Provider [phone] Reason for Referral * Diagnostic Imaging (Routine) - Closed Specialty Diagnoses / Procedures Referred By Contac t Referred To Contact Radiology Procedures CT Internal Auditory Canal Cochlear Implant WO Contrast Darshana Toth MD [address] [place] [address] Phone: tel: fax: Referral ID Status Reason Start Date Expiration Date Visits Re quested Visits Authorized [id number] Closed 07/11/2020 08/10/2021 1 1 [place] ASSISTANT Encounter Details Date Type Department Care Team (Late st Contact Info) Description 07/11/2020 Orders Only [facility] Otolaryngology [address] [facility] Medicine 11th [place] [address] [place] [address] Darshana Toth MD [address] [place] [address] Social History Tobacco Use Types Packs/Day Years Used Date Smoking Tobacco: Never Smokeless Tobacco: Never Alcohol Use Standard Drinks/Week Comments Yes 5 (1 standard drink = 0.6 oz pur e alcohol) Comments No Sex and Gender Information Value Date Recorded Sex Assigned at Not on file Legal Sex Female 9:09 PM RETAIL ASSISTANT Gender Identity Not on file Sexual Orientation Lesbian 05/24/2019 9: 06 AM CDT documented as of this encounter Plan of Treatment Not on file documented as of this encounter Procedures Procedure Name Priority Date/Time Associated Diagnosis Comments CT INTERNAL AUDITORY CANAL COCHLEAR IMPLANT WO CONTRAST Schedule Routine, Read Routine (OP Routine) 07/11/2020 documented in this encounter Results * CT Internal Auditory Canal Cochlear Implant WO Contrast (07/11/2020) Anatomical Region Laterality Modality Head and Neck N/A Computed Tomogra phy Darshana Toth MD IMG CT PROCEDURES Final Resul t documented in this encounter Visit Diagnoses Not on filedocumented in this encounter Care Teams Community Development Manager Relationship Specialty Start Date End Date Enmanuel Gan MD [address] [facility] [address] [place] [address] PCP - General Internal Medicine 04/26/20 documented as of this encounter
--- OUTSIDE RECORDS SUMMARY | 2024-07-12 08:56 | XMS_ITS | Encounter Summary ---
Author Organization [facility] Address [address] [place] [address] Phone Care Team Providers Care Almond Roaster Name Role Phone Enmanuel Gan MD Primary Care Provider [phone] Reason for Visit * Audiology (Routine) - Closed Specialty Diagnoses / Procedures Referred By Contac t Referred To Contact Audiology Diagnoses Sensorineural hearing loss, bilateral Procedures Evaluation, cochlear implant programming and auditory rehabilitation per [facility] adult cochlear implant protocol Darshana Toth MD [address] [facility] [address] [place] [address] Phone: tel: fax: [facility] Otolaryngology [address] [place] [address] 11th [place] [address] [place] [address] Phone: tel: fax: Referral ID Status Reason Start Date Expiration Date Visits Re quested Visits Authorized [id number] Closed 04/30/2020 05/30/2021 12 12 Encounter Details Date Type Department Care Team (Latest Contact Info) Description 07/10/2020 11:00 AM RIB SAWYER Procedure visit [facility]ology [facility] 11th [place] [address] [place] [address] Dulce Luna Au.D. [address] [place] [address] Sensorineural hearing loss, bilateral (Primary Dx) Social [...] on file Legal Sex Female 9:09 PM RIB SAWYER Gender Identity Not on file Sexual Orientation Lesbian 05/24/2019 9: 06 AM CDT documented as of this encounter Procedure Notes * Dulce Luna Au.D. - 07/10/2020 11:00 AM CST Procedures L/R/Bilateral left Drop Shipment Clerk [employer] Internal [id number] External Kanso 2 Provider Navneet Date of CI surgery 06/19/20 Date of IS 07/09/20 SERVICES PROVIDED: Equipment Troubleshooting The patient attended the session with her , Sunita. She reported: -the processor is not staying on her head. She was in the hospital for another appointment today and wanted to stop by to inquire about this. Upon inspection the 3 magnet seems appropriate for retention and stuck well to the internal magnet.In the office, the patient tried to put the processor on backwards, with the [employer] symbol towards the head. She also struggled to find her internal magnet. She was instructed to place the magnet side toward the head for the internal and external magnets to connect. She was then instructed to slightly wiggle the processor around the site of the internal once she gets connection, to ensure optimal connection. She and Sunita were also instructed to ensurethe processor microphones are facing straight up and not to the side. After these instructions, thepatient was able to place the processor and maintain retention with the hair clip in the office. She has no other concerns at this time. RECOMMENDATIONS: Return for continued programming and auditory rehabilitation SAWYER documented in this encounter Plan of Treatment Not on file documented as of this encounter Visit Diagnoses Diagnosis Sensorineural hearing loss, bilateral- Primary documented in this encounter Care Teams Almond Roaster Relationship Specialty Start Date End Date Enmanuel Gan MD [address] [place] [address] [place] [address] PCP - General Internal Medicine 04/26/20 documented as of this encounter
--- OUTSIDE RECORDS SUMMARY | 2024-07-12 08:56 | XMS_ITS | Encounter Summary ---
Author Organization [facility] Address [address] [place] [address] Care Team Providers Care Test Manager Name Role Phone Enmanuel Gna MD Primary Care Provider [phone] Reason for Referral * Diagnostic Imaging (Routine) - Closed Specialty Diagnoses / Procedures Referred By Contac t Referred To Contact Diagnoses History of spinal fusion for scoliosis Procedures XR Spine Thoracolumbar Junction 2 or More Views Jeremy Michelle MD [address] [place] [address] Phone: tel: fax: [address] [phone] Referral ID Status Reason Start Date Expiration Date Visits Re quested Visits Authorized [id number] Closed 07/10/2020 08/09/2021 1 1 ORT OPERATIONS OFFICER Reason for Visit * Diagnostic Imaging (Routine) - Closed Specialty Diagnoses / Procedures Referred By Contac t Referred To Contact Diagnoses History of spinal fusion for scoliosis Procedures XR Spine Thoracolumbar Junction 2 or More Views Jeremy Michelle MD [address] [place] [address] Phone: tel: fax: [address] [address] Referral ID Status Reason Start Date Expiration Date Visits Re quested Visits Authorized [id number] Closed 07/10/2020 08/09/2021 1 1 Encounter Details Date Type Department Care Team (Latest Contact Info) Description 07/10/2020 9:48 AM AIRPORT OPERATIONS OFFICER - 07/10/2020 11:59 PM AIRPORT OPERATIONS OFFICER Hospital Encounter [facility] [address] [place] [address] Jeremy Michelle MD [address] [facility] 6A/6B/12A [place] [address] History of spinal fusion for scoliosis Discharge [...] on file Legal Sex Female 9:09 PM AIRPORT OPERATIONS OFFICER Gender Identity Not on file Sexual Orientation Lesbian 05/24/2019 9: 06 AM CDT documented as of this encounter Medications at Time of Discharge atorvastatin (LIPITOR) 20 mg tabletIndications: hyperlipidemia Take 1 tablet (20 mg total) by mouth nightly 07/29/2018 ALPRAZolam (XANAX) 0.25 mg tablet Take 2 tablets (0.5 mg total) by mouth 2 (two) times a day as needed (dizziness) 60 tablet 1 03/27/2020 1 ascorbic acid (ascorbic acid with indira hips) 500 mg tablet,chewableInd ications:Vitamin C Deficiency Take 500 mg by mouth every morning 1 b complex vitamins tablet take 1 Tablet by Oral route every day 0 0 06/21/2013 1 calcium acetate,phosphat bind, (PHOSLO) 667 mg capsuleIndications :supplement Take 2 capsules (1,334 mg total) by mouth every morning 4 cholecalciferol (VITAMIN D-3) 25 mcg (1,000 unit) tabletIndications: Vitamin D Deficiency Take 1,000 Units by mouth every morning 1 coenzyme Q10 (CO Q-10) 100 mg capsule take 1 Capsule by Oral route once 0 0 06/21/2013 1 collagen, hydrolysate, bovine, (collagen, hydr, bovine,, bulk,) 100 % powderIndications: supplement every morning 0 cyanocobalamin (Vitamin B-12) 100 mcg tabletIndications: Prevention of Vitamin B12 Deficiency Take 100 mcg by mouth every morning 1 cyclobenzaprine (FLEXERIL) 10 mg tabletIndications: Muscle Spasm Take 10 mg by mouth nightly 03/12/2020 1 diltiazem (TIAZAC) 180 mg 24 hr capsule take 1 capsule (180MG) by oral route every day 90 3 06/15/[address] (CYMBALTA) 30 mg capsuleIndications :Anxiety with Depression Take 3 capsules (90 mg total) by mouth every morning 12/21/2019 4 Eliquis 5 mg tabletIndications: atrial fibrillation Take 5 mg by mouth 2 (two) times a day 06/29/2020 1 fexofenadine (THELMA) 180 mg tabletIndications: Seasonal Allergic Rhinitis Take 180 mg by mouth daily as needed 1 flecainide (TAMBOCOR) 100 mg tablet Take 100 mg by mouth 2 (two) times a day 06/29/2020 1 fluticasone (FLONASE) 50 mcg/actuation nasal spray inhale 1 spray (50MCG) by intranasal route every day in each nostril 0 06/15/2012 4 HYDROcodone-acetam inophen (NORCO) 5-325 mg per tabletIndications: Pain Take 1 tablet by mouth every 6 (six) hours as needed for pain 10 tablet 06/19/2020 1 magnesium citrate 100 mg tabletIndications: hypomagnesemia Take 1 tablet by mouth every morning 4 methylPREDNISolone (Medrol, George,) 4 mg Dosepack follow package directions 1 packet 06/19/2020 0 montelukast (SINGULAIR) 10 mg tabletIndications: Seasonal Allergic Rhinitis Take 10 mg by mouth nightly 10/25/2018 1 omega-3 fatty acids-fish oil 300-1,000 mg capsuleIndications :supplement Take 2 g by mouth every morning 1 potassium chloride ER 20 mEq CR tabletIndications: supplement Take 2 tablets (40 mEq total) by mouth every morning 06/29/2020 4 triamterene-hydroC HLOROthiazide 37.5-25 mg per capsule TAKE ONE CAPSULE BY MOUTH ONCE DAILY 90 capsule 3 11/17/2019 3 turmeric root extract 500 mg capsuleIndications :supplement Take 1 capsule by mouth every morning 0 documented as of this encounter Discharge Disposition Disposition Code Departure Means Destination Discharge to home or self care documented in this encounter Plan of Treatment Not on file documented as of this encounter Procedures Procedure Name Priority Date/Time Associated Diagnosis Comments XR SPINE THORACOLUMBAR JUNCTION 2 OR MORE VIEWS Schedule Routine, Read Routine (OP Routine) 07/10/2020 9:55 AM AIRPORT OPERATIONS OFFICER History of spinal fusion for scoliosis documented in this encounter Results * XR Spine Thoracolumbar Junction 2 or More Views (07/10/2020 9:55 AM AIRPORT OPERATIONS OFFICER) Anatomical Region Laterality Modality Spine N/A Computed Radiogr aphy 07/10/2020 10:4 2 AM AIRPORT OPERATIONS OFFICER Impressions 07/10/2020 12:23 PM AIRPORT OPERATIONS OFFICER Unchanged instrumented posterior spinal fusion from L2 [...] Katina Wang M.D. Narrative 07/10/2020 12:23 PM AIRPORT OPERATIONS OFFICER EXAMINATION: XR SPINE THORACOLUMBAR JUNCTION 2 OR [...] scoliosis documented in this encounter Care Teams Test Manager Relationship Specialty Start Date End Date Enmanuel Gan MD [address] [facility] [address] [place] [address] PCP - General Internal Medicine 04/26/20 documented as of this encounter
--- OUTSIDE RECORDS SUMMARY | 2024-07-12 08:56 | XMS_ITS | Encounter Summary ---
Author Organization [facility] Healthcare Address [address] [place] [address] Care Team Providers Care Trans Router Name Role Phone Enmanuel Gan MD Primary Care Provider [phone] Reason for Referral * Diagnostic Imaging (Routine) - Closed Specialty Diagnoses / Procedures Referred By Gigi t Referred To Contact Radiology Diagnoses Sensorineural hearing loss, bilateral Procedures CT Internal Auditory Canal Cochlear Implant WO Contrast Darshana Toth MD [address] [place] [address] Phone: tel: fax: [address] [phone] Referral ID Status Reason Start Date Expiration Date Visits Re quested Visits Authorized [id number] Closed 05/31/2020 06/30/2021 1 1 ER TENDERS SUPERVISOR Reason for Visit * Diagnostic Imaging (Routine) - Closed Specialty Diagnoses / Procedures Referred By Contwolfgang t Referred To Contact Radiology Diagnoses Sensorineural hearing loss, bilateral Procedures CT Internal Auditory Canal Cochlear Implant WO Contrast Darshana Toth MD [address] [place] [address] Phone: tel: fax: [address] [phone] Referral ID Status Reason Start Date Expiration Date Visits Re quested Visits Authorized [id number] Closed 05/31/2020 06/30/2021 1 1 Encounter Details Date Type Department Care Team (Latest Contact Info) Description 07/09/2020 8:58 AM BAILER TENDERS SUPERVISOR - 07/09/2020 11:59 PM BAILER TENDERS SUPERVISOR Hospital Encounter [facility] [address] [place] [address] Darshana Toth MD [address] [place] [address] Sensorineural hearing loss, bilateral Discharge Disposition: Discharge to home or self care Social History Tobacco Use Types Packs/Day Years Used Date Smoking Tobacco: Never Smokeless Tobacco: Never Alcohol Use Standard Drinks/Week Comments Yes 5 (1 standard drink = 0.6 oz pur e alcohol) Comments No Sex and Gender Information Value Date Recorded Sex Assigned at Not on file Legal Sex Female 9:09 PM BAILER TENDERS SUPERVISOR Gender Identity Not on file Sexual [...] Pain Take 1 tablet by mouth every 8 (eight) hours as needed 06/05/2020 0 HYDROcodone-acetam inophen (NORCO) 5-325 mg per tabletIndications: Pain Take 1 tablet by mouth every 6 (six) hours as needed for pain 10 tablet 06/19/2020 1 ibuprofen (ADVIL,MOTRIN) 800 mg tabletIndications: Pain Take 800 mg by mouth every 6 (six) hours as needed 03/23/2020 0 magnesium citrate 100 mg tabletIndications: hypomagnesemia Take [...] CONTRAST Schedule Routine, Read Routine (OP Routine) 07/09/2020 9:10 AM BAILER TENDERS SUPERVISOR Sensorineural hearing loss, bilateral documented in this encounter Results * CT Internal Auditory Canal Cochlear Implant WO Contrast (07/09/2020 9:10 AM BAILER TENDERS SUPERVISOR) Anatomical Region Laterality Modality Head and Neck N/A Computed Tomogra phy 07/09/2020 11:3 9 AM BAILER TENDERS SUPERVISOR Impressions 07/09/2020 12:02 PM BAILER TENDERS SUPERVISOR 1. ??Interval mastoidectomy and placement of left cochlear implant with a lead terminating in the middle turn of the cochlea. Postsurgical fluid and soft tissue swelling seen in the left external auditory canal and to a lesser extent within the left middle ear cavity. 2. 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 Dictated by: Richie Hernández M.D. The radiology attending physician has personally reviewed this study, and had reviewed and/or edited this written report and agrees with it. Electronically signed by: Nany Russo M.D. Narrative 07/09/2020 12:02 PM BAILER TENDERS SUPERVISOR EXAMINATION: CT of the temporal bones without contrast HISTORY: Sensorineural hearing loss status post cochlear implant TECHNIQUE: CT of the temporal bones was performed according to standard protocol without intravenous contrast. COMPARISON: Comparison is made to CT of the temporal bones dated 05/07/2020 FINDINGS: Review of the topogram demonstrates no abnormality. Redemonstrated midline meningioma projecting into the cisterna magna.. Calcifications within the jessica are noted. Postsurgical changes of a left mastoidectomy and interval placement of a left cochlear implant. ??There is fluid and soft tissue is seen in the external auditory canal and partially within the middle air cavity on the left. ??Remaining mastoid air cells on the left are fluid-filled. ??The cochlear lead courses to at least the middle turn of the left cochlea. ??The left middle ear ossicles are intact with no erosions. ??There are also distant left retrosigmoid craniotomy changes. The scalp is normal except for postsurgical changes of left mastoidectomy. ??The squamosal portions of the right temporal bones are normal. The right pinnae is normal. The right external auditory canals, including cartilaginous and bony portions, are normal. There is no fluid or mass in the middle ear cavity in the right. The middle ear ossicles are intact, and there are no erosions. The sinus tympani and pyramids are normal. The facial nerves, including labyrinthine, geniculate, horizontal, and descending segments, are normal. The right, the bony labyrinths including the cochlea, vestibule, and semicircular canals are normal without evidence of dehiscence or congenital malformation. The right internal auditory canals is normal. The vestibular aqueduct is normal in the right. The cochlear aqueduct is normal on the right. The right mastoid is well developed without evidence of fluid or fracture. Procedure Note Nany Russo MD - 07/09/2020 EXAMINATION: CT of the temporal bones without contrast HISTORY: Sensorineural hearing loss status post cochlear implant TECHNIQUE: CT of the temporal bones was performed according to standard protocol without intravenous contrast. COMPARISON: Comparison is made to CT of the temporal bones dated 05/07/2020 FINDINGS: Review of the topogram demonstrates no abnormality. Redemonstrated midline meningioma projecting into the cisterna magna.. Calcifications within the jessica are noted. Postsurgical changes of a left mastoidectomy and interval placement of a left cochlear implant. There is fluid and soft tissue is seen in the external auditory canal and partially within the middle air cavity on the left. Remaining mastoid air cells on the left are fluid-filled. The cochlear lead courses to at least the middle turn of the left cochlea. The left middle ear ossicles are intact with no erosions. There are also distant left retrosigmoid craniotomy changes. The scalp is normal except for postsurgical changes of left mastoidectomy. The squamosal portions of the right temporal bones are normal. The right pinnae is normal. The right external auditory canals, including cartilaginous and bony portions, are normal. There is no fluid or mass in the middle ear cavity in the right. The middle ear ossicles are intact, and there are no erosions. The sinus tympani and pyramids are normal. The facial nerves, including labyrinthine, geniculate, horizontal, and descending segments, are normal. The right, the bony labyrinths including the cochlea, vestibule, and semicircular canals are normal without evidence of dehiscence or congenital malformation. The right internal auditory canals is normal. The vestibular aqueduct is normal in the right. The cochlear aqueduct is normal on the right. The right mastoid is well developed without evidence of fluid or fracture. IMPRESSION: 1. Interval mastoidectomy and placement of left cochlear implant with a lead terminating in the middle turn of the cochlea. Postsurgical fluid and soft tissue swelling seen in the left external auditory canal and to a lesser extent within the left middle ear cavity. 2. Redemonstrated midline meningioma projecting into the cisterna magna. Dictated by: Richie Hernández M.D. The radiology attending physician has personally reviewed this study, and had reviewed and/or edited this written report and agrees with it. Electronically signed by: Nany Russo M.D. Darshana Toth MD IMG CT PROCEDURES Final Resul t documented in this encounter Visit Diagnoses Diagnosis Sensorineural hearing loss, bilateral documented in this encounter Care Teams Trans Router Relationship Specialty Start Date End Date Enmanuel Gan MD [address] [facility] [address] [place] [address] PCP - General Internal Medicine 04/26/20 documented as of this encounter
--- OUTSIDE RECORDS SUMMARY | 2024-07-12 08:57 | XMS_ITS | Encounter Summary ---
Author Organization [facility] Healthcare Address [address] [place] [address] Care Team Providers Care Buffer Chrome Name Role Phone Enmanuel Gan MD Primary Care Provider [phone] Encounter Details Date Type Department Care Team (Late st Contact Info) Description 06/19/2020 11:00 AM CHAR [employer] - 06/19/2020 1:30 PM CHAR [employer] Surgery [facility] [address] [place] [id number] Darshana Toth MD [facility] [address] [place] [address] Left COCHLEAR IMPLANT Surgery Details Date/Time Status Location OR Service Patient Class Case Cl ass Case Type Trauma Case? 06/19/2020 11:00 AM Posted [facility] CAM OR POD 4 K Otolaryngology Outpatient Elective Panel 1 Procedure LRB Anes Op Region Wound Class Comments Left COCHLEAR IMPLANT Left General Ear Class I - Clean Surgeon Surgeon Role Service Panel Darshana Toth MD Primary Otolaryngology 1 Crissy Ramirez MD Resident - Assisting Minor Procedures 1 documented in this encounter Social History Tobacco Use Types Packs/Day Years Used Date Smoking Tobacco: Never Smokeless Tobacco: Never Alcohol Use Standard Drinks/Week Comments Yes 5 (1 standard drink = 0.6 oz pur e alcohol) Comments No Sex and Gender Information Value Date Recorded Sex Assigned at Not on file Legal Sex Female 9:09 PM CHAR [employer] Gender Identity Not on file Sexual Orientation Lesbian 05/24/2019 9: 06 AM CDT documented as of this encounter Last Filed Vital Signs Vital Sign Reading Time Taken Comments Blood Pressure 96/50 06/19/2020 1:30 PM CHAR [employer] Pulse 65 06/19/2020 1:30 PM CHAR [employer] Temperature 36 ??C (96.8 ??F) 06/19/2020 12:40 PM CHAR [employer] Respiratory Rate 14 06/19/2020 1:30 PM CHAR [employer] Oxygen Saturation 91% 06/19/2020 1:30 PM CHAR [employer] Inhaled Oxygen Concentration - - Weight 78 kg (172 lb) 06/19/2020 9:31 AM CHAR [employer] Height 162.6 cm (5' 4 ) 06/19/2020 9:31 AM CHAR [employer] Body Mass Index 29.52 06/19/2020 9:31 AM CHAR [employer] documented in this encounter Discharge Instructions * Discharge Instructions* Crissy Ramirez MD - 06/19/2020 12:37 PM CHAR [employer] A cochlear implant bypasses the damaged parts of the inner ear by directly stimulating the auditorynerve. A cochlear implant is an electronic device that is surgically implanted with an electrode that goes into the inner ear. This implant works in conjunction with external equipment worn behind the ear. Although cochlear implants do not restore natural hearing, most individuals with cochlear implants can achieve significant gains in sound awareness and speech understanding. Cochlear implants become an option when someone gets limited benefit from hearing aids. If there are no medical contraindications candidates of any age may be implanted. This is an outpatient procedure, meaning you will go home the same day. Recovery from surgery generally is 3-7 days. We wait 2-3 weeks before activating the device due to swelling. When the device isactivated, you will work with the customer equipment engineer on hearing rehabilitation. This program is time intensive at first and these appointments should be coordinated with your cochlear implant customer equipment engineer. Your surgeon may want to see you before your device gets activated. If necessary those appointments can also be coordinated. Medications Pain medication: Many patients are able to obtain pain control with over the counter pain medications including alternating between Tylenol/Acetaminophen and Ibuprofen/Alleve. If you still have pain despite using these, you will also be given a prescription for pain medication. Take this as prescribed and only on an as needed basis. Do not drive or operate machinery while using narcotics. Avoid taking on an empty stomach. You may receive better pain relief by alternating the pain medications since they relieve pain in different ways. Antibiotics: Start the antibiotic the evening you go home from surgery and take until the prescription is finished. Avoid taking on an empty stomach. Steroid: You will be given a steroid pack (methylprednisolone - Medrol dose pack). Please start it the morning after your surgery and use it as directed. Normal side effects of steroids may include anxiety and insomnia, taking the steroid in the morning may be helpful. If you experience elevated blood sugars, or joint pain please stop the medication and contact our office. After-Care Remove the ear dressing the day after your surgery. Please keep the ear shield as it may provide more comfort and protection while you sleep for the first week after surgery. Your incision is closed with skin glue, so you do not need to apply any ointment. If there is some bleeding it can be cleaned gently with hydrogen peroxide. Keep the incision dry when showering or bathing for one week after surgery. Do not pick, pull, rub or scratch your incision. Always wash your hands before and after contact with the incision. Your sutures are under the skin and will dissolve on their own. If you wear glasses, either remove the arm on the operated side or make certain that it does not rest on the incision behind your ear. Avoid lying on the operative ear for 1 week after surgery. No strenuous activity for 1 week, including no heavy lifting over 10 lbs. Do not travel on an airplane for 4 weeks, unless otherwise approved. Avoid situations where you might have to make sudden head movements. Do not blow your nose or sneeze with your mouth closed. Try not to blow your nose for at least 1 week after surgery. If you use CPAP, ask your surgeon about when it is safe to resume its use. Call the office if you have a temperature over 100.3, your incision is red, swollen or coming apart, you have excessive drainage from your ear or incision, or you have clear fluid draining from your ear, incision or nose. Do not wait until your next office appointment to report any problems or questions. The office number is [phone] and the after-hours exchange is [phone] D[employer]ER documented in this encounter Medications at Time [...] bovine, (collagen, hydr, bovine,, bulk,) 100 % powderIndication s:supplement every morning 0 cyanocobalamin (Vitamin B-12) 100 mcg tabletIndication s:Prevention of Vitamin B12 Deficiency Take 100 mcg by mouth every morning 1 cyclobenzaprine (FLEXERIL) 10 mg tabletIndication s:Muscle Spasm Take 10 mg by mouth nightly 03/12/2020 1 diltiazem (TIAZAC) 180 mg 24 hr capsule take 1 capsule (180MG) by oral route every day 90 3 06/15/[address] (CYMBALTA) 30 mg capsuleIndicatio ns:Anxiety with Depression Take 3 capsules (90 mg total) by mouth every morning 12/21/2019 4 fexofenadine (THELMA) 180 mg tabletIndication s:Seasonal Allergic Rhinitis Take 180 mg by mouth daily as needed 1 fluticasone (FLONASE) 50 mcg/actuation nasal spray inhale 1 spray (50MCG) by intranasal route every day in each nostril 0 06/15/2012 4 HYDROcodone-acet aminophen (NORCO) 5-325 mg per tabletIndication s:Pain Take 1 tablet by mouth every 8 (eight) hours as needed 06/05/2020 0 ibuprofen (ADVIL,MOTRIN) 800 mg tabletIndication s:Pain Take 800 mg by mouth every 6 (six) hours as needed 03/23/2020 0 magnesium citrate 100 mg tabletIndication s:hypomagnesemia Take 1 tablet by mouth every morning 4 montelukast (SINGULAIR) 10 mg tabletIndication s:Seasonal Allergic Rhinitis Take 10 mg by mouth nightly 10/25/2018 1 omega-3 fatty acids-fish oil 300-1,000 mg capsuleIndicatio ns:supplement Take 2 g by mouth every morning 1 triamterene-hydr oCHLOROthiazide 37.5-25 mg per capsule TAKE ONE CAPSULE BY MOUTH ONCE DAILY 90 capsule 3 11/17/2019 3 turmeric root extract 500 mg capsuleIndicatio ns:supplement Take 1 capsule by mouth every morning 0 amoxicillin (AMOXIL) 875 mg tablet Take 1 tablet (875 mg total) by mouth 2 (two) times a day for 5 days 10 tablet 06/19/2020 0 HYDROcodone-acet aminophen (NORCO) 5-325 mg per tabletIndication s:Pain Take 1 tablet by mouth every 6 (six) hours as needed for pain 10 tablet 06/19/2020 1 methylPREDNISolo ne (Medrol, George,) 4 mg Dosepack follow package directions 1 packet 06/19/2020 0 documented as of this encounter Ordered Prescriptions Prescription Sig Dispense Quantity Refills Last Filled Start Date End Date methylPREDNISolone (Medrol, George,) 4 mg Dosepack follow package directions 1 packet 06/19/2020 0 HYDROcodone-acetam inophen (NORCO) 5-325 mg per tabletIndications: Pain Take 1 tablet by mouth every 6 (six) hours as needed for pain 10 tablet 06/19/2020 1 amoxicillin (AMOXIL) 875 mg tablet Take 1 tablet (875 mg total) by mouth 2 (two) times a day for 5 days 10 tablet 06/19/2020 0 documented in this encounter Discharge Disposition Disposition Code Departure Means Destination Discharge to home or self care documented in this encounter H&P Notes * Crissy Ramirez MD - 06/19/2020 10:21 AM CST I have reviewed the H&P, examined the patient, and endorse the findings as written. Plan of Care : Based on the above findings, I consider Macie Briseno to be an acceptable risk for : Procedure(s): Left COCHLEAR IMPLANT Cosigned by Darshana Toth MD at 06/19/2020 10:37 AM CHAR [employer]ER Source Note - Georgia Cantu NP - 06/15/2020 9:50 AM CHAR [employer] Images from the original note were not included. [facility] for Preoperative Assessment and Planning Preoperative Evaluation Record Evaluation type/location: [facility] Planned procedure site: [facility] CAM OR (Pod 4) Date: 06/15/20 Anesthesia Evaluation Macie Briseno is a 74 y.o. female Procedure(s): Left COCHLEAR IMPLANT * No Diagnosis Codes entered * HISTORY HPI Macie Herrera is a 74 year old female with a PMH of HTN,HLD, chronic back pain and hearing impairment in L ear who is being evaluated prior to undergoing L cochlear implant for decreased hearing loss in L ear . Past Medical History Information obtained from: patient and chart. Neurological Pertinent negatives: seizures; neuromuscular disease; CVA/stroke; TIA; CEA; ICA stenosis; dementia/mild cognitive impairment and carotid artery stent Cardiovascular + Hyperlipidemia Pertinent negatives: hypertension ; CAD ; NH ; CABG ; valvular heart disease; valve replacement; atrial fibrillation; arrhythmia; pacemaker/ICD; PVD; DVT/PE; negative for CHF; drug-eluting stent(s); bare metal stent(s) and coronary angioplasty Respiratory Pertinent negatives: COPD; [...] negatives: previous treatment for opioid use disorder Endocrine / Other Pertinent negatives: diabetes mellitus; thyroid disease; obesity (BMI >30); cancer history; rheumatological disease and transplanted organ Functional Capacity Functional capacity: <4 METs Comments: Patient reports limited to physical activity d/t chronic back pain Review of Systems + easy bruising + muscle weakness (BLE) + chronic pain + numbness/tingling (numbness BLE, tingling R toes) + hard of hearing (decreased L ear) Pertinent negatives: productive cough; wheezing; SOB; recent cold/flu; fever; chest pain; palpitations; orthopnea; pedal edema; PND; heavy menses; Sickle Cell disease/trait; previous transfusion; transfusion reaction; melena/hematochezia; bleeding problems; syncope; dizziness; vision loss; heartburn; nausea; dysphagia; diarrhea; dentures/partials; chipped/loose teeth; abdominal pain; diaphoresis and no unexpected weight change PAT Summary and Plans Cardiac risk classification of planned procedure: low cardiac risk. Preoperative assessment status: complete. Additional comments: Macie Briseno is a 74 y.o. female who is being evaluated prior to undergoing a low cardiac risk surgery. Revised Cardiac Risk Index factors are (none) for a total RCRI of 0 out of 6. Functional capacity is <4 METs (specifically: Patient repots being limited physically to chronic back pain). Obstructive sleep apnea (MIGUEL A) screening status is STOP-Bang=1 suggesting low risk for MIGUEL A. Blood bank needs for day of procedure: No type and screen needed Pending labs/tests include: BMP Patient with No known exposure to COVID19 and no concerning symptoms of COVID19. Plan for pre-procedure COVID19 testing: Surgery date within 4 days. Pre- procedure COVID19 testing performed at [facility]. Result pending- to be reviewed by surgeon's office. Preoperative evaluation performed by Tequila Morales NP on 06/15/20 at 10:28 AM. . Follow up note Labs reviewed and are without significant findings. Surgeon's office reviews laboratory results independently. CPAP process complete. Follow-up completed by: Georgia Cantu NP on 06/18/20 at 9:00 AM Patient Active Problem List Diagnosis ??? [...] ??? Inflammatory spondylopathy of thoracic region (CMS/HCC) Past Medical History: Diagnosis Date ??? Auditory [...] Med List Status: Nurse Complete Set By: Tea Sparks RN at 06/15/2020 9:55 AM Taking? Last Dose Start Date End Date Provider ALPRAZolam (XANAX) 0.25 mg tablet 03/27/20 06/15/20 Darshana Toth MD Take 2 tablets (0.5 mg total) by mouth 2 (two) times a day as needed (dizziness) Patient taking differently: Take 0.5 mg by mouth nightly ascorbic acid (ascorbic acid with indira hips) 500 mg tablet,chewable -- -- Emmanuel Briones MD atorvastatin (LIPITOR) 20 mg tablet 07/29/18 -- Emmanuel Briones MD b complex vitamins tablet 06/21/13 -- Tg Houston MD take 1 Tablet by Oral route every day Patient taking differently: Take 1 tablet by mouth every morning calcium acetate,phosphat bind, (PHOSLO) 667 mg capsule -- -- Emmanuel Briones MD cholecalciferol (VITAMIN D-3) 25 mcg (1,000 unit) tablet -- -- Emmanuel Briones MD coenzyme Q10 (CO Q-10) 100 mg capsule 06/21/13 -- Tg Houston MD take 1 Capsule by Oral route once Patient taking differently: Take 100 mg by mouth every morning collagen, hydrolysate, bovine, (collagen, hydr, bovine,, bulk,) 100 % powder -- -- Emmanuel Briones MD cyanocobalamin (Vitamin B-12) 100 mcg tablet -- -- Emmanuel Briones MD cyclobenzaprine (FLEXERIL) 10 mg tablet 03/12/20 -- Emmanuel Briones MD diltiazem (TIAZAC) 180 mg 24 hr capsule 06/15/12 -- Tg Houston MD take 1 capsule (180MG) by oral route every day Patient taking differently: Take 180 mg by mouth every morning DULoxetine DR (CYMBALTA) 30 mg capsule 12/21/19 -- Emmanuel Briones MD fexofenadine (THELMA) 180 mg tablet -- -- Emmanuel Briones MD fluticasone (FLONASE) 50 mcg/actuation nasal spray 06/15/12 -- Tg Houston MD inhale 1 spray (50MCG) by intranasal route every day in each nostril Patient taking differently: Administer into each nostril daily as needed HYDROcodone-acetaminophen (NORCO) 5-325 mg per tablet 06/05/20 -- Emmanuel Briones MD ibuprofen (ADVIL,MOTRIN) 800 mg tablet 03/23/20 -- Emmanuel Briones MD magnesium citrate 100 mg tablet -- -- Emmanuel Briones MD montelukast (SINGULAIR) 10 mg tablet 10/25/18 -- Emmanuel Briones MD omega-3 fatty acids-fish oil 300-1,000 mg capsule -- -- Emmanuel Briones MD triamterene-hydroCHLOROthiazide 37.5-25 mg per capsule 11/17/19 -- Juan Carlos Jackson MD TAKE ONE CAPSULE BY MOUTH ONCE DAILY Patient taking differently: Take 1 tablet/capsule by mouth every morning turmeric root extract 500 mg capsule -- -- Emmanuel Briones MD Current Outpatient Medications: ??? ALPRAZolam (XANAX) 0.25 mg tablet ??? ascorbic acid (ascorbic acid with indira hips) 500 mg tablet,chewable ??? atorvastatin (LIPITOR) 20 mg tablet ??? b complex vitamins tablet ??? calcium acetate,phosphat bind, (PHOSLO) 667 mg capsule ??? cholecalciferol (VITAMIN D-3) 25 mcg (1,000 unit) tablet ??? coenzyme Q10 (CO Q-10) 100 mg capsule ??? collagen, hydrolysate, bovine, (collagen, hydr, bovine,, bulk,) 100 % powder ??? cyanocobalamin (Vitamin B-12) 100 mcg tablet ??? cyclobenzaprine (FLEXERIL) 10 mg tablet ??? diltiazem (TIAZAC) 180 mg 24 hr capsule ??? DULoxetine DR (CYMBALTA) 30 mg capsule ??? fexofenadine (THELMA) 180 mg tablet ??? fluticasone (FLONASE) 50 mcg/actuation nasal spray ??? HYDROcodone-acetaminophen (NORCO) 5-325 mg per tablet ??? ibuprofen (ADVIL,MOTRIN) 800 mg tablet ??? magnesium citrate 100 mg tablet ??? montelukast (SINGULAIR) 10 mg tablet ??? omega-3 fatty acids-fish oil 300-1,000 mg capsule ??? triamterene-hydroCHLOROthiazide 37.5-25 mg per capsule ??? turmeric root extract 500 mg capsule Social History Tobacco Use Smoking Status Never Smoker Smokeless Tobacco Never Used Substance and Sexual Activity Alcohol Use Yes ??? Alcohol/week: 5.0 standard drinks ??? Types: 5 Glasses of wine per week Substance and Sexual Activity Drug Use Yes Comment: cbd oil topically Family History Problem [...] Mallampati: III Cervical ROM: FROM TM distance: 3 Cardiovascular Exam: Rhythm: regular Negative for peripheral edema Pulmonary Exam: LCTA, bilat EENT Exam: trachea midline Dental Exam: Appears intact Skin Exam: Skin is warm and dry. Abdominal exam: Abdomen is soft. Bowel sounds are present. Current state: Patient's current state is cooperative and interactive. Vitals: 06/15/20 1000 06/15/20 1003 BP: 116/78 119/78 Pulse: 68 Resp: 20 SpO2: 97% Relevant diagnostics: ECG(s): N/A Echocardiogram(s): N/A Stress test(s): 05/27/2019: Conclusions: 1. Negative Pharmacologic Stress Myocardial Perfusion Imaging without ischemia or infarct. Heart rate increase is not required for adequate pharmacologic vasodilator stress. 2. Normal Gated Spect study with EF of 73%. Cardiac catheterization(s): N/A PFT(s): N/A Vascular studies: N/A Other: N/A PT: No results found for requested labs within last 720 hours. INR: No results found for requested labs within last 720 hours. APTT: No results found for requested labs within last 720 hours. Hgb A1C: No results found for requested labs within last 720 hours. CBC RBC: No results found for requested labs within last 720 hours. RDW: No results found for requested labs within last 720 hours. MCHC: No results found for requested labs within last 720 hours. MCH: No results found for requested labs within last 720 hours. MCV: No results found for requested labs within last 720 hours. Hct: No results found for requested labs within last 720 hours. Hgb: No results found for requested labs within last 720 hours. WBC: No results found for requested labs within last 720 hours. MPV: No results found for requested labs within last 720 hours. Platelets: No results found for requested labs within last 720 hours. RDW CV: No results found for requested labs within last 720 hours. RDW Sd: No results found for requested labs within last 720 hours. BMP Glucose: No results found for requested labs within last 720 hours. Calcium: No results found for requested labs within last 720 hours. Sodium: No results found for requested labs within last 720 hours. Potassium: No results found for requested labs within last 720 hours. CO2: No results found for requested labs within last 720 hours. Chloride: No results found for requested labs within last 720 hours. BUN: No results found for requested labs within last 720 hours. Creatinine: No results found for requested labs within last 720 hours. STOP-Bang Total Score: 1 Lorenza index score: 100 AD8 Dementia Score: 0 Short Blessed Total Score: 4 D[employer]ER DUST CLE[employer]ER AND SALVAGER documented in this encounter Miscellaneous Notes * Perioperative Nursing Note - Katty Gordillo RN - 06/19/2020 3:06 PM CHAR [employer] Void per bathroom per wheelchair w RN escort. Left ear dressing CDI, no more oozing noted. D[employer]ER * Op Note - Darshana Toth MD - 06/19/2020 11:16 AM CST Patient: Macie Briseno : 1945 DATE OF PROCEDURE: 06/19/2020 PREOPERATIVE DIAGNOSIS: Bilateral Sensorineural Hearing Loss POSTOPERATIVE DIAGNOSIS: Bilateral Sensorineural Hearing Loss PROCEDURES: 1) Left Mastoidectomy with cochlear implantation (CPT 19048) 2) Use of Operating Microscope (CPT 12743) SURGEON: Darshana Toth MD FELLOW: NONE RESIDENT PHYSICIAN: Crissy Ramirez MD ANESTHESIA: General ESTIMATED BLOOD LOSS: 20 mL. COMPLICATIONS: None. CONDITION: Stable to the post-anesthesia care unit. INDICATIONS FOR PROCEDURE: Macie Briseno is a pleasant 74 y.o.-year-old female with significant sensorineural hearing loss with markedly reduced word understanding who no longer receives enough benefit from hearing aid amplification. INTRAOPERATIVE FINDINGS: Device: [id number] (Serial Number: [id number]) Facial nerve canal: Intact Chorda tympani nerve: Intact Cochleostomy: RW Depth of insertion: full Impedance and NRT testing: performed Skull X-ray: appropriate placement without tip-rollover PROCEDURE IN DETAIL: After obtaining informed consent and marking the operative ear, the patient was transported to the operating room. General anesthesia was induced, the patient was intubated without complication, and the bed was turned 180-degrees. Facial nerve monitoring was setup and confirmed to be working. A pre-operative time-out was performed. The operative field was prepped in sterile fashion and injected with 1% Lidocaine with 1:100,000 epinephrine. The operative ear was prepped and draped in sterile fashion. Using a 15-blade scalpel, a postauricular incision was made and carried down to the temporalis fascia. Soft tissue was elevated 1-cm anteriorly and 2-cm posteriorly, then the ear was retracted. The periosteum was incised with monopolar cauterization to create an anteriorly based Palva flap. The periosteum incision was offset from the skin incision. The flap was elevated until the spine of Henle could be identified. A subperiosteal tight-pocket was now formed. The silastic template implant was placed in the pocket to confirm a tight fit. The operative microscope was then brought into the field. A complete mastoidectomy was performed using an otologic drill with various sized cutting and jaziel burrs. The sigmoid sinus, tegmen, lateral semicircular canal, incus, and vertical segment of the facial nerve were identified. Edges aroundthe mastoid cavity and a trough from the silastic template to the mastoid cavity were created. The mastoid cavity was irrigated with saline solution containing bacitracin. After identification of thefacial nerve and chorda tympani, a facial recess was now widely opened. Visualization of the full round window membrane was now optimized by removing bony overhangs. The mastoid cavity was again irrig ated with saline solution containing bacitracin and all the bone dust was removed. The facial recess was filled with gel foam. The silastic was now removed from the tight-pocket and the tight pocket was irrigated. Hemostasis was obtained. Monopolar cauterization was removed from the surgical field. The internal market garden worker of the cochlear implant was placed into the tight pocket and secured with 3-0 Vicryl. A cochleostomy wasnow performed and the electrode was delicately placed into the cochlea using a slow insertion technique. A full insertion was obtained. The cochleostomy site was sealed with fascia. The redundant electrode was curled in the mastoid cavity making sure to not put pressure on the external auditory canal. The wound was closed in a multi-layered fashion with the periosteum closed using 3-0 Vicryl sutures followed by closure of the cutaneous layer. An intraoperative skull x-ray was obtained and confirmed appropriate placement within the cochlea. Impedances and intraoperative electrode interrogationwas also performed confirming the electrode was functioning appropriately. All counts were confirmed to be correct. A mastoid dressing was placed and the patient was extubated and transported to recovery in stable condition. I was present and participated in all portions of the procedure. Darshana Toth M.D. Chief Electrician Otology/Neurotology Department of Otolaryngology [facility] E-mail: [email or web address] [place] 06/19/2020 12:20 PM DUST CLEANER AND SALVAGER documented in this encounter Plan of Treatment Not on file documented as of this encounter Procedures Procedure Name Priority Date/Time Associated Diagnosis Comments XR SKULL LESS THAN 4 VIEWS Schedule Routine, Read Routine (OP Routine) 06/19/2020 12:11 PM CHAR DUST CLEANER AND SALVAGER Sensorineural hearing loss (SNHL) of both ears IMPLANTATION COCHLEAR DEVICE UNILATERAL. 06/19/2020 10:48 AM CHAR DUST CLEANER AND SALVAGER H90.3 documented in this encounter Results * XR Skull Less than 4 Views (06/19/2020 12:11 PM CHAR DUST CLEANER AND SALVAGER) Anatomical Region Laterality Modality Head and Neck N/A Computed Radiogr aphy 06/19/2020 12:1 9 PM CHAR DUST CLEANER AND SALVAGER Impressions 06/19/2020 12:19 PM CHAR DUST CLEANER AND SALVAGER 1. ??New left cochlear implant. Electronically signed by: Yemi Francis M.D. Narrative 06/19/2020 12:19 PM CHAR DUST CLEANER AND SALVAGER EXAMINATION: Skull less than 4 views HISTORY: ??Left cochlear implant FINDINGS: A single oblique view of the skull is submitted for interpretation. Comparison is made to prior CT examination 05/07/2020. There is a new left cochlear implant. An endotracheal tube is present. Procedure Note Yemi Francis MD - 06/19/2020 EXAMINATION: Skull less than 4 views HISTORY: Left cochlear implant FINDINGS: A single oblique view of the skull is submitted for interpretation. Comparison is made to prior CT examination 05/07/2020. There is a new left cochlear implant. An endotracheal tube is present. IMPRESSION: 1. New left cochlear implant. Electronically signed by: Yemi Francis M.D. Darshana Toth MD IMG XR PROCEDURES Final Resul t documented in this encounter Visit Diagnoses Not on filedocumented in this encounter Administered Medications Inactive Administered Medications - up to 3 most recent administrations Medication Order MAR Action Action Date Dose Rate Site acetaminophen (TYLENOL) tablet 1,000 mg 1,000 mg, oral, Once, On Thu06/19/20 at 1000, For 1 dose, Pre-Op, Indications: Pre-Emptive AnalgesiaIndications:Pre-Emp tive Analgesia Given 06/19/2020 9:40 AM CHAR DUST CLEANER AND SALVAGER 1,000 mg fentaNYL (SUBLIMAZE) preservative free injection 50 mcg 50 mcg, intravenous, Once as needed, uncontrolled pain on PACU admission, Starting on Thu06/19/20 at 1240, For 1 dose, Phase I, Then proceed to PACU 1st line analgesic., Indications: PainIndications:Pain Given 06/19/2020 1:16 PM CHAR DUST CLEANER AND SALVAGER 50 mcg HYDROmorphone (DILAUDID) injection 0.2 mg 0.2 mg, intravenous, Administer over 2 Minutes, Every 10 min PRN, 2nd line for pain, Starting on Thu06/19/20 at 1329, For 5 doses Given 06/19/2020 1:34 PM CHAR DUST CLEANER AND SALVAGER 0.2 mg Lactated Ringer's (LR) infusion 30 mL/hr, intravenous, Continuous, Starting on e 06/19/20 at 1000, Pre-Op Rate/Dose Verify 06/19/2020 10:49 AM CHAR DUST CLEANER AND SALVAGER New Bag 06/19/2020 9:56 AM CHAR DUST CLEANER AND SALVAGER 30 mL/hr 30 mL/hr lidocaine-EPINEPHrine (XYLOCAINE with EPI) 1 %-1:100,000 injection As needed, Starting on Thu06/19/20 at 1116, Intra-Op, Indications: Administration of Local AnesthesiaIndications:Adm inistration of Local Anesthesia Given 06/19/2020 11:16 AM CHAR DUST CLEANER AND SALVAGER 3 mL scopolamine patch 72 hour 1 patch 1 patch, transdermal, Administer over 72 Hours, Once, On Thu06/19/20 at 1000, For 1 dose, Pre-Op, Place behind non surgical ear, Indications: Prevention of Post-Operative Nausea and VomitingIndications:Preve ntion of Post-Operative Nausea and Vomiting Medication Applied 06/19/2020 9:40 AM CHAR DUST CLEANER AND SALVAGER 1 patch Behind Right Ear sodium chloride 0.9 % irrigation As needed, Starting on Thu06/19/20 at 1116, Intra-Op Given 06/19/2020 11:16 AM CHAR DUST CLEANER AND SALVAGER 1,000 mL Surgical Site sodium chloride 0.9 % irrigation As needed, Starting on Thu06/19/20 at 1117, Intra-Op Given 06/19/2020 11:17 AM CHAR DUST CLEANER AND SALVAGER 3,000 mL Surgical Site documented in this encounter Active and Recently Administered Medications Times are shown in CHAR DUST CLEANER AND SALVAGER. Scheduled Medication Order 06/17/2020 06/18/2020 06/19/2020 acetaminophen (TYLENOL) tablet 1,000 mg (COMPLETED) 1,000 mg, oral, Once, On Thu06/19/20 at 1000, For 1 dose, Pre-Op, Indications: Pre-Emptive Analgesia 0940 (Given - Provid er: Ashia Hamilton RN) ceFAZolin (ANCEF) 2,000 mg/20 mL in sterile water (premix) 2,000 mg (COMPLETED) 2,000 mg, intravenous, at 400 mL/hr, Administer over 3 Minutes, Once, On Thu06/19/20 at 1000, For 1 dose, Pre-Op, Administer within 60 minutes of incision., Indications: Prophylaxis, Surgical 1057 (Given - Provid er: Catalina Darling CRNA) scopolamine patch 72 hour 1 patch 1 patch, transdermal, Administer over 72 Hours, Once, On Thu06/19/20 at 1000, For 1 dose, Pre-Op, Place behind non surgical ear, Indications: Prevention of Post-Operative Nausea and Vomiting 0940 (Medication Radha lied - Provider: Ashia Hamilton RN)1507 (Due: Medication Removed - Provider: Automatic Discharge Provider - Comment: Time automatically adjusted from order being discontinued) Continuous Medication Order 06/17/2020 06/18/2020 06/19/2020 Lactated Ringer's (LR) infusion (CANCELED) 30 mL/hr, intravenous, Continuous, Starting on Thu06/19/20 at 1000, Pre-Op 0956 (New Bag - Prov ider: Ashia Hamilton RN)1049 (Rate/Dose Verify - Provider: Catalina Darling CRNA)1216 (Stopped - Provider: Catalina Darling CRNA)1239 (Canceled Entry - Provider: Katty Gordillo RN)1439 (Canceled Entry - Provider: Katty Gordillo RN) Lactated Ringer's (LR) infusion 125 mL/hr, intravenous, Continuous, Starting on Thu06/19/20 at 1315, Phase I 1315 (Due) PRN Medication Order 06/17/2020 06/18/2020 06/19/2020 acetaminophen (TYLENOL) tablet 1,000 mg 1,000 mg, oral, Once as needed, 2nd line for pain, Starting on Thu06/19/20 at 1240, For 1 dose, Phase I, When able to tolerate PO., Indications: Pain 1326 (Due) fentaNYL (SUBLIMAZE) preservative free injection 25 mcg 25 mcg, intravenous, Every 10 min PRN, 1st line for pain, Starting on Thu06/19/20 at 1240, Phase I, Switch to 2nd line analgesic order if pain is uncontrolled or increasing after 2 doses. Notify Anesthesiologist if total PACU dose reaches 100 mcg and pain score 5/10 or more., Indications: Pain fentaNYL (SUBLIMAZE) preservative free injection 50 mcg (COMPLETED) 50 mcg, intravenous, Once as needed, uncontrolled pain on PACU admission, Starting on Thu06/19/20 at 1240, For 1 dose, Phase I, Then proceed to PACU 1st line analgesic., Indications: Pain 1316 (Given - Provid er: Laurence Van RN) fentaNYL (SUBLIMAZE) preservative free injection 50 mcg 50 mcg, intravenous, Every 10 min PRN, 2nd line for pain, Starting on Thu06/19/20 at 1240, Phase I, May administer 10 mintes after 2nd dose of 1st line analgesic agent for uncontrolled or increasing pain. Revert to 1st line dose if POSS of 3. Notify Anesthesiologist if total PACU dose reaches 100 mcg and pain score 5/10 or more., Indications: Pain HYDROmorphone (DILAUDID) injection 0.2 mg 0.2 mg, intravenous, Administer over 2 Minutes, Every 10 min PRN, 2nd line for pain, Starting on Thu06/19/20 at 1329, For 5 doses 1334 (Given - Provid er: Laurence Van RN) lidocaine-EPINEPHrine (XYLOCAINE with EPI) 1 %-1:100,000 injection (CANCELED) As needed, Starting on Thu06/19/20 at 1116, Intra-Op, Indications: Administration of Local Anesthesia 1116 (Given - Provid er: Darshana Toth MD - Comment: left ear) meperidine (DEMEROL) preservative free injection 12.5 mg 12.5 mg, intravenous, Every 10 min PRN, shivering, Starting on Thu06/19/20 at 1240, For 2 doses, Phase I, Max cumulative dose 25 mg., Indications: Shivering ondansetron (ZOFRAN) injection 4 mg 4 mg, intravenous, Administer over 2 Minutes, Once as needed, nausea, vomiting, Starting on Thu06/19/20 at 1240, For 1 dose, Phase I, Indications: Nausea and Vomiting sodium chloride 0.9 % irrigation (CANCELED) As needed, Starting on Thu06/19/20 at 1116, Intra-Op 1116 (Given - Provid er: Darshana Toth MD) sodium chloride 0.9 % irrigation (CANCELED) As needed, Starting on Thu06/19/20 at 1117, Intra-Op 1117 (Given - Provid er: Darshana Toth MD - Comment: for suction test engineering technician) documented in this encounter Orders Medications Ordered That Tyrone ht Not Have Been Administered Count Last Ordered Date First Ordered Date acetaminophen (TYLENOL) tablet 1,000 mg 1 1 08/19/2019 ceFAZolin (ANCEF) 2,000 mg/2 0 mL in sterile water (premix) 2,000 mg 1 06/19/2020 fentaNYL (SUBLIMAZE) preserv ative free injection 25 mcg 1 06/19/2020 fentaNYL (SUBLIMAZE) preserv ative free injection 50 mcg 1 06/19/2020 Lactated Ringer's (LR) infusion 1 0 meperidine (DEMEROL) preserv ative free injection 12.5 mg 1 06/19/2020 ondansetron (ZOFRAN) injection 4 mg 1 06/19 sodium chloride 0.9% flush 0.5-20 mL 1 05/28 documented in this encounter Care Teams Buffer Chrome Relationship Specialty Start Date End Date Enmanuel Gan MD [address] [facility] [address] [place] [address] PCP - General Internal Medicine 04/26/20 documented as of this encounter
--- OUTSIDE RECORDS SUMMARY | 2024-07-12 08:57 | XMS_ITS | Encounter Summary ---
Author Organization [facility] Address [address] [place] [address] Phone Care Team Providers Care Shop Blacksmith Name Role Phone Enmanuel aGn MD Primary Care Provider [phone] Encounter Details Date Type Department Care Team (Late st Contact Info) Description 06/11/2020 Telephone [facility] Otolaryngology [address] [facility] [address] [place] [id number] Gianna Brar RN Social History Tobacco Use Types Packs/Day Years Used Date Smoking Tobacco: Never Smokeless Tobacco: Never Alcohol Use Standard Drinks/Week Comments Yes 0 (1 standard drink = 0.6 oz pur e alcohol) Comments Unknown Sex and Gender Information Value Date Recorded Sex Assigned at Not on file Legal Sex Female 9:09 PM SUPERMARKET MANAGER Gender Identity Not on file Sexual Orientation Lesbian 05/24/2019 9: 06 AM CDT documented as of this encounter Miscellaneous Notes * Telephone Encounter - Gianna Brar MA - 06/11/2020 10:57 AM SUPERMARKET MANAGER Left message returning patient's phone call regarding status of surgery with Dr. Toth. At thistime, surgery is still scheduled. If there are any changes I will contact to patient to discuss. RMARKET MANAGER documented in this encounter Plan of Treatment Not on file documented as of this encounter Visit Diagnoses Not on filedocumented in this encounter Care Teams Shop Blacksmith Relationship Specialty Start Date End Date Enmanuel Gan MD [address] [facility] [address] [facility] [address] [place] [address] PCP - General Internal Medicine 04/26/20 documented as of this encounter
--- OUTSIDE RECORDS SUMMARY | 2024-07-12 08:57 | XMS_ITS | Encounter Summary ---
Author Organization [facility] Address [address] [place] [address] Phone Care Team Providers Care Salesperson Furs Name Role Phone Enmanuel Gan MD Primary Care Provider [phone] Encounter Details Date Type Department Care Team (Late st Contact Info) Description 06/20/2020 Telephone [facility] Otolaryngology [address] [facility] [address] 11th [place] [address] [place] [address] Marissa Sanchez BS Social History Tobacco Use Types Packs/Day Years Used Date Smoking Tobacco: Never Smokeless Tobacco: Never Alcohol Use Standard Drinks/Week Comments Yes 5 (1 standard drink = 0.6 oz pur e alcohol) Comments No Sex and Gender Information Value Date Recorded Sex Assigned at Not on file Legal Sex Female 9:09 PM GLOBAL SECURITY ARCHITECT Gender Identity Not on file Sexual Orientation Lesbian 05/24/2019 9: 06 AM CDT documented as of this encounter Miscellaneous Notes * Telephone Encounter - Marissa Sanchez BS - 06/20/2020 11:17 AM CST Patient called reporting she started hearing lots of noise after her cochlear implant surgery yesterday and thought it may have been the device making noise. Patient was counseled that the implant itself is incapable of producing sound without the external sound processor, which the patient has notreceived yet. She was further counseled that it is common for patients to experience tinnitus as the healing process occurs. She was asked to reach back out to Dr. Toth's nurse should the tinnitus worsen or become more bothersome. AL SECURITY ARCHITECT documented in this encounter Plan of Treatment Not on file documented as of this encounter Visit Diagnoses Not on filedocumented in this encounter Care Teams Salesperson Furs Relationship Specialty Start Date End Date Enmanuel Gan MD [address] [place] [address] [place] [address] PCP - General Internal Medicine 04/26/20 documented as of this encounter
--- OUTSIDE RECORDS SUMMARY | 2024-07-12 08:57 | XMS_ITS | Encounter Summary ---
Author Organization [facility] Address [address] [place] [address] Phone Care Team Providers Care Director Global Sales Name Role Phone Enmanuel Gan MD Primary Care Provider [phone] Encounter Details Date Type Department Care Team (Latest Contact Info) Description 06/19/2020 1:15 PM ADVANCED MANUFACTURING TECHNICIAN Procedure visit [facility] Otolaryngology [address] [facility] [address] 11th [address] [place] [address] Clarence Jordan Au.D. [address] [place] [address] Sensorineural hearing loss, bilateral (Primary Dx) Social History Tobacco Use Types Packs/Day Years Used Date Smoking Tobacco: Never Smokeless Tobacco: Never Alcohol Use Standard Drinks/Week Comments Yes 5 (1 standard drink = 0.6 oz pur e alcohol) Comments No Sex and Gender Information Value Date Recorded Sex Assigned at Not on file Legal Sex Female 9:09 PM ADVANCED MANUFACTURING TECHNICIAN Gender Identity Not on file Sexual Orientation Lesbian 05/24/2019 9: 06 AM CDT documented as of this encounter Procedure Notes * Clarence Jordan Au.D. - 06/19/2020 1:15 PM CST Procedures Services Provided: Intraoperative Monitoring - Neural Response Testing of the Cochlear Implant The patient underwent surgery today with Dr. Toth to place a left ear cochlear implant - [employer] 632/slim modiolar array. Following electrode insertion, telemetry was performed remotely using a laptop and [employer] Sound EP software. Lock was established and impedances were measured and obtained on all electrodes.Next, Neural Response Telemetry (NRT) was measured on five electrodes - 22, 16, 11, 6, 1. Responseswere obtained on E1, 11 and 6; questionable responses on E22 and 16. Subsequent electrodes measured. Responses obtained on E13 and 12; questionable responses on E20 and 14. Patient has a history of left vestibular nerve section. See [employer] EP this date. Recommendations Re-run NRT post-op / as needed Services Provided By Digna Evans, [facility] NCED MANUFACTURING TECHNICIAN documented in this encounter Plan of Treatment Not on file documented as of this encounter Visit Diagnoses Diagnosis Sensorineural hearing loss, bilateral- Primary documented in this encounter Care Teams Director Global Sales Relationship Specialty Start Date End Date Enmanuel Gan MD [address] [place] [address] [place] [address] PCP - General Internal Medicine 04/26/20 documented as of this encounter
--- OUTSIDE RECORDS SUMMARY | 2024-07-12 08:57 | XMS_ITS | Encounter Summary ---
Author Organization [facility] Healthcare Address [address] [place] [address] Care Team Providers Care Export Sales Assistant Name Role Phone Enmanuel Gan MD Primary Care Provider [phone] Encounter Details Date Type Department Care Team (Late st Contact Info) Description 06/19/2020 10:42 AM TUBE MACHINE OPERATOR Anesthesia Event [facility] Operating [facility] ([facility]) [address] [place] [address] Errol Ron MD DDS [address] [place] [address] Catalina Darling CRNA [address] [place] [address] Anesthesia Record Procedure Summary Procedure Name Responsible Anesthesiologist Anesthesia Start Time Anesthesia Stop Time Left COCHLEAR IMPLANT (Left: Ear) Errol Ron MD DDS 06/19/20 1042 06/19/20 1249 Events Date Time Event Comment 06/19/2020 0918 In Preop 1042 An Start 1048 In Room 1049 An Start Data 1056 An Induction The patient was reevaluated immediately before moderate or deep sedation use and before anesthesia induction. 1058 An Intubation 1105 Anesthesia Ready 1116 Proc Start 1116 Incision Start 1233 An Extubation 1236 Proc Fin 1237 an stop data 1238 Out of Room 1246 Handoff to RN I completed my handoff [...] disposition at the time of handoff: PACU 1249 An Stop Meds Name Total midazolam PF 2 mg lidocaine 1 % PF 60 mg fentaNYL 100 mcg propofol 130 mg succinylcholine 80 mg ondansetron PF (ZOFRAN) 2 mg/mL injectio n 4 mg ceFAZolin (ANCEF) 2,000 mg/20 mL in ster ile water (premix) 2,000 mg 2,000 mg dexamethasone 4 mg/mL 8 mg phenylephrine infusion (100 mcg/mL) 1.19 mg Lactated Ringer's (LR) infusion 1,000 mL * Agents Name O2% N2O Sevoflurane Inspired Sevoflurane * Blood No blood administrations on file. Lines, Drains, and Airways Type Details Placement Removal Cochlear Implant 06/19/20; 1200 06/19/20 1200 b Marissa Jean BS Hearing Aid 12/11/17; 07/15/22; 0821 12/11/17 0000 by Anahy Frances Au.D. 07/15/22 0821 by Kathleen Marcum Ear Mold 12/11/17; 07/15/22; 0821 12/11/17 0000 by Anahy Frances Au.D. 07/15/22 0821 by Kathleen Marcum Peripheral IV Placement Date: 06/19/20; Placement Time: 954; Catheter Size: 20 G; Orientation: Left; Location: Arm; Site Prep: Chlorhexidine; Insertion Attempts: 1; Patient Tolerance: Tolerated well; Removal Date: 06/19/20; Removal Time: 1445 06/19/20 0955 by Ashia Maldonado RN 06/19/20 1445 by Katty Gordillo RN ETT Placement Date: 06/19/20; Placement Time: 1104 (created via procedure documentation); Mask Ventilation: 1; Technique: Direct laryngoscopy; Type: ETT - single; Single Lumen Tube Size: 7 mm; Cuffed: Yes; Laryngoscope: Liane; Blade Size: 3; Location: Oral; Grade View: Grade I; Insertion Attempts: 1; Placement Verification: Auscultation, Capnometry; Removal Date: 06/19/20; Removal Time: 1233 06/19/20 1104 by Catalina Darling CRNA 06/19/20 1233 by Catalina Darling CRNA RETIRED Surgical Site 06/19/20; 1148; Le ft; Ear; Post-Auricular; 07/25/20; 1414; Not present on admission 06/19/20 1148 by Ragini Cuadra RN 07/25/20 1414 by Scott Yee RN documented in this encounter Social History Tobacco Use Types Packs/Day Years Used Date Smoking Tobacco: Never Smokeless Tobacco: Never Alcohol Use Standard Drinks/Week Comments Yes 5 (1 standard drink = 0.6 oz pur e alcohol) Comments No Sex and Gender Information Value Date Recorded Sex Assigned at Not on file Legal Sex Female 9:09 PM TUBE MACHINE OPERATOR Gender Identity Not on file Sexual Orientation Lesbian 05/24/2019 9: 06 AM CDT documented as of this encounter OR Notes * Anesthesia Postprocedure Evaluation - Errol Ron MD DDS - 06/19/2020 2:43 PM CST Patient: Macie Briseno Procedure Summary Date: 06/19/20 Room / Location: [facility] CAM OR POD 4 ROOM K / [facility] OR POD 4 Anesthesia Start: 1042 Anesthesia Stop: 1249 Procedure: Left COCHLEAR IMPLANT (Left Ear) Diagnosis: (H90.3) Surgeons: Darshana Toth MD Responsible Provider: Errol Ron MD DDS Anesthesia Type: general ASA Status: 3 Anesthesia Type: general Last vitals BP 112/52 Pulse 65 Temp 36.2 ??C (97.2 ??F) (Temporal) Resp 13 SpO2 94% Anesthesia Post Evaluation Patient location during evaluation: PACU Patient participation: complete - patient participated Level of consciousness: fully awake Pain management: adequate Airway patency: adequate Anesthetic complications: no Cardiovascular status: acceptable Respiratory status: acceptable Hydration status: acceptable Pt is: normothermic MACHINE OPERATOR * Anesthesia Procedure Notes - Catalina Darling CRNA - 06/19/2020 11:04 AM CSTAssociated Order(s): Airway Airway Patient location: OR Urgency: elective Indications for airway management: anesthesia Difficult airway: no Staff: Supervising provider: Errol Ron MD DDS Placed by: CALL CENTER MANAGER: Catalina Darling CRNA Emergent airway documentation: Risks and benefits discussed: yes Consent obtained: yes Consent given by: patient Airway prep: Preoxygenated: yes Patient position: sniffing MILS maintained throughout: yes Mask difficulty assessment: 1 - vent by mask Sedation level during airway: GA Final airway details: Final airway type: endotracheal airway Tube type: ETT ETT size: 7.0 mm Cuffed: yes Technique used for successful ETT placement: direct laryngoscopy Devices/Methods used in placement: intubating stylet Insertion site: oral Blade type: Liane Blade size: 3 Cormack-Lehane (direct): grade I - full view of glottis Cuff inflated with: air ETT to teeth: 21 cm Placement verified by: auscultation and CO2 detection Airway secured with: silk tape Number of attempts: 1 MACHINE OPERATOR * Anesthesia Preprocedure Evaluation - Errol Ron MD DDS - 06/19/2020 9:53 AM CST Images from the original note were not included. Anesthesia Evaluation Macie Briseno is a 74 y.o. female Procedure(s): Left COCHLEAR IMPLANT * No Diagnosis Codes entered * Patient Active Problem List Diagnosis ??? Microvascular [...] Date Provider ALPRAZolam (XANAX) 0.25 mg tablet 06/18/2020 03/27/20 06/19/20 Darshana Toth MD Take 2 tablets (0.5 mg total) by mouth 2 (two) times a day as needed (dizziness) Patient taking differently: Take 0.5 mg by mouth nightly ascorbic acid (ascorbic acid with indira hips) 500 mg tablet,chewable 06/18/2020 -- -- Emmanuel Briones MD atorvastatin (LIPITOR) 20 mg tablet 06/18/2020 07/29/18 -- Emmanuel Briones MD b complex vitamins tablet 06/18/2020 06/21/13 -- Tg Houston MD take 1 Tablet by Oral route every day Patient taking differently: Take 1 tablet by mouth every morning calcium acetate,phosphat bind, (PHOSLO) 667 mg capsule 06/18/2020 -- -- Emmanuel Briones MD cholecalciferol (VITAMIN D-3) 25 mcg (1,000 unit) tablet 06/18/2020 -- -- Emmanuel Briones MD coenzyme Q10 (CO Q-10) 100 mg capsule 06/18/2020 06/21/13 -- Tg Houston MD take 1 Capsule by Oral route once Patient taking differently: Take 100 mg by mouth every morning collagen, hydrolysate, bovine, (collagen, hydr, bovine,, bulk,) 100 % powder Past Week -- -- Emmanuel Briones MD cyanocobalamin (Vitamin B-12) 100 mcg tablet 06/18/2020 -- -- Emmanuel Briones MD cyclobenzaprine (FLEXERIL) 10 mg tablet 06/18/2020 03/12/20 -- Emmanuel Briones MD diltiazem (TIAZAC) 180 mg 24 hr capsule 06/19/2020 06/15/12 -- Tg Houston MD take 1 capsule (180MG) by oral route every day Patient taking differently: Take 180 mg by mouth every morning DULoxetine DR (CYMBALTA) 30 mg capsule 06/19/2020 12/21/19 -- Emmanuel Briones MD fexofenadine (THELMA) 180 mg tablet 06/18/2020 -- -- Emmanuel Briones MD fluticasone (FLONASE) 50 mcg/actuation nasal spray Past Week 06/15/12 -- Tg Houston MD inhale 1 spray (50MCG) by intranasal route every day in each nostril Patient taking differently: Administer into each nostril daily as needed HYDROcodone-acetaminophen (NORCO) 5-325 mg per tablet 06/18/2020 06/05/20 -- Emmanuel Briones MD ibuprofen (ADVIL,MOTRIN) 800 mg tablet Past Week 03/23/20 -- Emmanuel Briones MD magnesium citrate 100 mg tablet 06/18/2020 -- -- Emmanuel Briones MD montelukast (SINGULAIR) 10 mg tablet 06/18/2020 10/25/18 -- Emmanuel Briones MD omega-3 fatty acids-fish oil 300-1,000 mg capsule 06/18/2020 -- -- Emmanuel Briones MD triamterene-hydroCHLOROthiazide 37.5-25 mg per capsule 06/19/2020 11/17/19 -- Juan Carlos Jackson MD TAKE ONE CAPSULE BY MOUTH ONCE DAILY Patient taking differently: Take 1 tablet/capsule by mouth every morning turmeric root extract 500 mg capsule Past Week -- -- Provider, MD Emmanuel Current Facility-Administered Medications: ??? ceFAZolin (ANCEF) 2,000 mg/20 mL in sterile water (premix) 2,000 mg, 2,000 mg, intravenous, Once ??? Lactated Ringer's (LR) infusion, 30 mL/hr, intravenous, Continuous ??? scopolamine patch 72 hour 1 patch, 1 patch, transdermal, Once, 1 patch at 06/19/20 0940 ??? sodium chloride 0.9% flush 0.5-20 mL, 0.5-20 mL, intra-catheter, PRN Social History Tobacco Use Smoking Status Never [...] Neg Hx ??? Sudden Cardiac Neg Hx Vitals: 06/19/20 0931 BP: 122/66 Pulse: 72 Resp: 15 Temp: 36.4 ??C (97.5 ??F) SpO2: 97% PT: No results found for requested labs [...] labs within last 720 hours. BMP Glucose: 06/15/2020: 91 mg/dL Calcium: 06/15/2020: 9.8 mg/dL Sodium: 06/15/2020: 140 mmol/L Potassium: 06/15/2020: 4.2 mmol/L CO2: 06/15/2020: 32 mmol/L Chloride: 06/15/2020: 103 mmol/L BUN: 06/15/2020: 17 mg/dL Creatinine: 06/15/2020: 0.85 mg/dL STOP-Bang Total Score: 1 DOS Physical Exam Medical history, medications, and allergies reviewed. Attestation: I endorse the findings of the anesthesia pre-evaluation assessment dated: 06/15/2020. Airway Exam: Mallampati: I Cervical ROM: FROM TM distance: 3 Cardiovascular Exam: Rate: regular Rhythm: regular Pulmonary Exam: LCTA, bilat EENT Exam: trachea midline Dental Exam: Appears intact Skin Exam: Skin is warm. Current state: Patient's current state is cooperative and interactive. 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 Anesthesia Plan ASA 3 My patient is approved for the Anesthesia Controlled Medication protocol when under care of a CALL CENTER MANAGER Planned anesthesia: General Team communication plan: oral ET tube Induction: Induction: intravenous. Postoperative Plan: Postoperative administration opioids intended. No postoperative mechanical ventilation intended. Patient's planned disposition post procedure is Outpatient. Informed Consent: Anesthesia plan and risks discussed with patient. Plan and Consent Comments: Patient declines d/o serious risks of anesthesia. Consent and Attending signature: I and/or my designee have discussed the anesthesia plan, benefits, possible alternatives, parental presence at time of induction (if indicated), and clinically relevant risks that may include dental injury, unintentional awareness, and/or other complications. The patient and/or parent/legal guardian understand, and agree to proceed. All questions answered. MACHINE OPERATOR * Anesthesia Preprocedure Evaluation - Georgia Cantu NP - 06/15/2020 9:50 AM CST Images from the original note were not included. Center for Preoperative Assessment and Planning Preoperative Evaluation Record Evaluation type/location: [facility] Planned procedure site: [facility] CAM OR (Pod 4) Date: 06/15/20 [...] Hyperlipidemia Pertinent negatives: hypertension ; CAD ; MD ; CABG ; valvular heart disease; valve [...] days. Pre- procedure COVID19 testing performed at [facility]. Result pending- to be reviewed by surgeon's [...] 5-325 mg per tablet 06/05/20 -- Emmanuel Brionse MD ibuprofen (ADVIL,MOTRIN) 800 mg tablet 03/23/20 -- Emmanuel Briones MD magnesium citrate 100 mg tablet -- -- Emmanuel Briones MD montelukast (SINGULAIR) 10 mg tablet 10/25/18 -- Emmanule Briones MD omega-3 fatty acids-fish oil 300-1,000 [...] Score: 0 Short Blessed Total Score: 4 MACHINE OPERATOR MACHINE OPERATOR documented in this encounter Plan of Treatment Not on file documented as of this encounter Procedures Procedure Name Priority Date/Time Associated Diagnosis Comments AR AN PROCEDURE PLACEHOLDER Routine 06/19/2020 11:04 AM TUBE MACHINE OPERATOR AR AN ELECTIVE ENDOTRACHEAL AIRWAY Routine 06/19/2020 11:04 AM TUBE MACHINE OPERATOR documented in this encounter Results * AR AN ELECTIVE ENDOTRACHEAL AIRWAY, AR AN PROCEDURE PLACEHOLDER (06/19/2020 11:04 AM TUBE MACHINE OPERATOR) Narrative Catalina Darling CRNA - 06/19/2020 11:04 AM TUBE MACHINE OPERATOR Catalina Darling CRNA ? 06/19/2020 11:04 AM Airway Patient location: OR Urgency: elective Indications for airway management: anesthesia Difficult airway: no Staff: Supervising provider: Errol Ron MD DDS Placed by: CALL CENTER MANAGER: Catalina Darling CRNA Emergent airway documentation: Risks and benefits discussed: yes Consent obtained: yes Consent given by: patient Airway prep: Preoxygenated: yes Patient position: sniffing MILS maintained throughout: yes Mask difficulty assessment: 1 - vent by mask Sedation level during airway: GA Final airway details: Final airway type: endotracheal airway Tube type: ETT ETT size: 7.0 mm Cuffed: yes Technique used for successful ETT placement: direct laryngoscopy Devices/Methods used in placement: intubating stylet Insertion site: oral Blade type: Liane Blade size: 3 Cormack-Lehane (direct): grade I - full view of glottis Cuff inflated with: air ETT to teeth: 21 cm Placement verified by: auscultation and CO2 detection Airway secured with: silk tape Number of attempts: 1 us Errol Ron MD, DDS ANESTHESIA ORDERABLES Geovanna huynh Result documented in this encounter Visit Diagnoses [...] within 60 minutes of incision., Indications: Prophylaxis, SurgicalIndications:Prophyla xis, Surgical Given 06/19/2020 10:57 AM TUBE MACHINE OPERATOR 2,000 mg dexAMETHasone (DECADRON) 4 mg/mL injection Administer over 2 Minutes, As needed, Starting on Thu06/19/20 at 1100, Anesthesia Intra-op Given 06/19/2020 11:00 AM TUBE MACHINE OPERATOR 8 mg fentaNYL (SUBLIMAZE) preservative free injection intravenous, As needed, Starting on Thu06/19/20 at 1056, Anesthesia Intra-op Given 06/19/2020 10:56 AM TUBE MACHINE OPERATOR 100 mcg Lactated Ringer's (LR) infusion 30 mL/hr, intravenous, Continuous, Starting on Thu06/19/20 at 1000, Pre-Op Rate/Dose Verify 06/19/2020 10:49 AM TUBE MACHINE OPERATOR New Bag 06/19/2020 9:56 AM TUBE MACHINE OPERATOR 30 mL/hr 30 mL/hr lidocaine PF (XYLOCAINE) 10 mg/mL (1 %) preservative free injection As needed, Starting on Thu06/19/20 at 1056, Anesthesia Intra-op Given 06/19/2020 10:56 AM TUBE MACHINE OPERATOR 60 mg midazolam (VERSED) 1 mg/mL preservative free injection intravenous, Administer over 2 Minutes, As needed, Starting on Thu06/19/20 at 1049, Anesthesia Intra-op Given 06/19/2020 10:53 AM TUBE MACHINE OPERATOR 1 mg Given 06/19/2020 10:49 AM TUBE MACHINE OPERATOR 1 mg ondansetron (ZOFRAN) injection intravenous, Administer over 2 Minutes, As needed, Starting on Thu06/19/20 at 1217, Anesthesia Intra-op Given 06/19/2020 12:17 PM TUBE MACHINE OPERATOR 4 mg phenylephrine (JOANN-SYNEPHRINE) 5 mg/50 mL (100 mcg/mL) in sodium chloride 0.9% (premix) Continuous PRN, Starting on Thu06/19/20 at 1149, Anesthesia Intra-op New Bag 06/19/2020 11:49 AM TUBE MACHINE OPERATOR 0.4 mcg/kg/min 18.72 mL/hr propofoL (DIPRIVAN) IV intravenous, As needed, Starting on Thu06/19/20 at 1056, Anesthesia Intra-op Given 06/19/2020 10:56 AM TUBE MACHINE OPERATOR 130 mg succinylcholine (ANECTINE) injection intravenous, As needed, Starting on Thu06/19/20 at 1056, Anesthesia Intra-op Given 06/19/2020 10:56 AM TUBE MACHINE OPERATOR 80 mg documented in this encounter Care Teams Export Sales Assistant Relationship Specialty Start Date End Date Enmanuel Gan MD [address] [facility] [place] [id number] PCP - General Internal Medicine 04/26/20 documented as of this encounter
--- OUTSIDE RECORDS SUMMARY | 2024-07-12 08:57 | XMS_ITS | Encounter Summary ---
Author Organization [facility] Address [address] [place] [address] Phone Care Team Providers Care Accounting Clerk Name Role Phone Enmanuel Gan MD Primary Care Provider [phone] Encounter Details Date Type Department Care Team (Late st Contact Info) Description 06/14/2020 Telephone [facility] Orthopaedic Surgery [address] [facility] 6th [place] [address] [place] [address] Jeremy Michelle MD [address] [facility] [address] [place] [address] Social History Tobacco Use Types Packs/Day Years Used Date Smoking Tobacco: Never Smokeless Tobacco: Never Alcohol Use Standard Drinks/Week Comments Yes 0 (1 standard drink = 0.6 oz pur e alcohol) Comments Unknown Sex and Gender Information Value Date Recorded Sex Assigned at Not on file Legal Sex Female 9:09 PM COIL MAKER Gender Identity Not on file Sexual Orientation Lesbian 05/24/2019 9: 06 AM CDT documented as of this encounter Miscellaneous Notes * Telephone Encounter - Cyndie Byers RN - 06/14/2020 2:47 PM COIL MAKER Spoke with patient and set up appt from referral from Dr. Hunt. MAKER documented in this encounter Plan of Treatment Not on file documented as of this encounter Visit Diagnoses Not on filedocumented in this encounter Care Teams Accounting Clerk Relationship Specialty Start Date End Date Enmanuel Gan MD [address] [place] [address] PCP - General Internal Medicine 04/26/20 documented as of this encounter
--- OUTSIDE RECORDS SUMMARY | 2024-07-12 08:57 | XMS_ITS | Encounter Summary ---
Author Organization [facility] Address [address] [place] [address] Care Team Providers Care Insulation Board Calender Operator Name Role Phone Enmanuel Gan MD Primary Care Provider [phone] Reason for Referral * Diagnostic Imaging (Routine) - Closed Specialty Diagnoses / Procedures Referred By Contwolfgang t Referred To Contact Radiology Diagnoses Sensorineural hearing loss, asymmetrical Procedures MRI Internal Auditory Canal Incl Brain WO Contrast Darshana Toth MD [address] [place] [address] Phone: tel: fax: [address] [phone] Referral ID Status Reason Start Date Expiration Date Visits Re quested Visits Authorized [id number] Closed 06/06/2020 07/06/2021 1 1 CAL OPERATIONS SUPERVISOR Reason for Visit * Diagnostic Imaging (Routine) - Closed Specialty Diagnoses / Procedures Referred By Contac t Referred To Contact Radiology Diagnoses Sensorineural hearing loss, asymmetrical Procedures MRI Internal Auditory Canal Incl Brain WO Contrast Darshana Toth MD [address] [place] [address] Phone: tel: fax: [address] [phone] Referral ID Status Reason Start Date Expiration Date Visits Re quested Visits Authorized [id number] Closed 06/06/2020 07/06/2021 1 1 Encounter Details Date Type Department Care Team (Latest Contact Info) Description 06/09/2020 12:06 PM MEDICAL OPERATIONS SUPERVISOR - 06/09/2020 11:59 PM MEDICAL OPERATIONS SUPERVISOR Hospital Encounter [facility] [address] [place] [address] Darshana Toth MD [address] [place] [address] Sensorineural hearing loss, asymmetrical Discharge Disposition: Discharge to home or self care Social History Tobacco Use Types Packs/Day Years Used Date Smoking Tobacco: Never Smokeless Tobacco: Never Alcohol Use Standard Drinks/Week Comments Yes 0 (1 standard drink = 0.6 oz pur e alcohol) Comments Unknown Sex and Gender Information Value Date Recorded Sex Assigned at Not on file Legal Sex Female 9:09 PM MEDICAL OPERATIONS SUPERVISOR Gender Identity Not on file Sexual Orientation Lesbian 05/24/2019 9: 06 AM CDT documented as of this encounter Medications at Time of Discharge atorvastatin (LIPITOR) 20 mg tabletIndication s:hyperlipidemia Take 1 tablet (20 mg total) by mouth nightly 07/29/2018 amoxicillin (AMOXIL) 875 mg tablet Take 1 tablet (875 mg total) by mouth 2 (two) times a day for 5 days 10 tablet 06/19/2020 0 ALPRAZolam (XANAX) 0.25 mg tablet Take 2 tablets (0.5 mg total) by mouth 2 (two) times a day as needed (dizziness) 60 tablet 1 03/27/2020 1 b complex vitamins tablet take 1 Tablet by Oral route every day 0 0 06/21/2013 1 cetirizine (ZyrTEC) 10 mg capsule 10 mg daily 12/31/2018 0 cholecalciferol (VITAMIN D3) 5,000 unit tablet take 1 Tablet by Oral route once 0 0 06/21/2013 0 coenzyme Q10 (CO Q-10) 100 mg capsule take 1 Capsule by Oral route once 0 0 06/21/2013 1 cyclobenzaprine (FLEXERIL) 10 mg tabletIndication s:Muscle Spasm Take 10 mg by mouth nightly 03/12/2020 1 diltiazem (TIAZAC) 180 mg 24 hr capsule take 1 capsule (180MG) by oral route every day 90 3 06/15/[address] (CYMBALTA) 30 mg capsuleIndicatio ns:Anxiety with Depression Take 3 capsules (90 mg total) by mouth every morning 12/21/2019 4 fluticasone (FLONASE) 50 mcg/actuation nasal spray inhale 1 spray (50MCG) by intranasal route every day in each nostril 0 06/15/2012 4 HYDROcodone-acet aminophen (NORCO) 5-325 mg per tabletIndication s:Pain Take 1 tablet by mouth every 8 (eight) hours as needed 06/05/2020 0 HYDROcodone-acet aminophen (NORCO) 5-325 mg per tabletIndication s:Pain Take 1 tablet by mouth every 6 (six) hours as needed for pain 10 tablet 06/19/2020 1 ibuprofen (ADVIL,MOTRIN) 800 mg tabletIndication s:Pain Take 800 mg by mouth every 6 (six) hours as needed 03/23/2020 0 methylPREDNISolo ne (Medrol, George,) 4 mg Dosepack follow package directions 1 packet 06/19/2020 0 montelukast (SINGULAIR) 10 mg tabletIndication s:Seasonal Allergic Rhinitis Take 10 mg by mouth nightly 10/25/2018 1 PARoxetine (PAXIL) 20 mg tablet 1/2 tab daily in the AM for 10 days, then 1 tab daily in the AM. 02/17/2019 0 triamterene-hydr oCHLOROthiazide 37.5-25 mg per capsule TAKE ONE CAPSULE BY MOUTH ONCE DAILY 90 capsule 3 11/17/2019 3 documented as of this encounter Discharge Disposition Disposition Code Departure Means Destination Discharge to home or self care documented in this encounter Plan of Treatment Not on file documented as of this encounter Procedures Procedure Name Priority Date/Time Associated Diagnosis Comments MRI INTERNAL AUDITORY CANAL INCL BRAIN WO CONTRAST Schedule Routine, Read Routine (OP Routine) 06/09/2020 1:02 PM MEDICAL OPERATIONS SUPERVISOR Sensorineural hearing loss, asymmetrical documented in this encounter Results * MRI Internal Auditory Canal Incl Brain WO Contrast (06/09/2020 1:02 PM MEDICAL OPERATIONS SUPERVISOR) Anatomical Region Laterality Modality Head and Neck N/A Magnetic Resonan ce 06/09/2020 3:35 PM MEDICAL OPERATIONS SUPERVISOR Impressions 06/09/2020 3:42 PM MEDICAL OPERATIONS SUPERVISOR 1. ??Postsurgical changes in the left 7th, 8th and 9th nerve complexes, as evidenced by thickening around the porus acusticus, in addition to diminutive size of the canalicular segment of the left vestibular nerve. ??No lesion is noted along the course of the ureters. 2. 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 Dictated by: Desmond Matta M.D. The radiology attending physician has personally reviewed this study, and had reviewed and/or edited this written report and agrees with it. Electronically signed by: Madison Giron M.D. Narrative 06/09/2020 3:42 PM MEDICAL OPERATIONS SUPERVISOR EXAMINATION: Magnetic resonance imaging (MRI) of the brain and brainstem without contrast HISTORY: Sensorineural hearing loss. ??History of bilateral Meniere's disease. ??Also has history of left vestibular nerve section. TECHNIQUE: Multiplanar multi-weighted MRI of the brain and brainstem was performed without intravenous contrast using the internal auditory canal protocol. This included sequences detailing the internal auditory canals and posterior fossa COMPARISON: CT of the internal auditory canals on 05/07/2020. FINDINGS: There is a 1.1 x 1.2 x 1.2 cm (CC x TV x AP) meningioma that projects into the cisterna magna at the level of the foramen magnum. The cerebellopontine angles are normal, with no evidence of extra-axial mass or aneurysm. The VII/VIII nerve complexes appear normal on the right. ??On the left, there is thickening of the left 7th, 8th and 9th nerve complexes at the level of the porus acusticus, in addition to diminutive size of the canalicular segment of the left vestibular nerve, consistent with reported surgical changes. ??No lesion is noted along the course of the nerves. ??The upper cervical spinal cord and spine are normal. The scalp and calvarium are normal. ??The superior sagittal sinus demonstrates normal venous flow. The corpus callosum is normal in shape and signal intensity. The posterior fossa is unremarkable. The pituitary and sella are normal. Diffusion weighted images reveal no hyperintensities to suggest acute cerebral infarction. The susceptibility weighted sequences reveal no evidence of acute or chronic hemorrhage. The ventricles are normal in size and position without evidence of hydrocephalus. The paranasal sinuses are normal. The visualized portions of the mastoids are unremarkable. The orbits appear normal. Normal flow voids are demonstrated in the carotid arteries and basilar artery. Procedure Note Madison Giron MD - 06/09/2020 EXAMINATION: Magnetic resonance imaging (MRI) of the brain and brainstem without contrast HISTORY: Sensorineural hearing loss. History of bilateral Meniere's disease. Also has history of left vestibular nerve section. TECHNIQUE: Multiplanar multi-weighted MRI of the brain and brainstem was performed without intravenous contrast using the internal auditory canal protocol. This included sequences detailing the internal auditory canals and posterior fossa COMPARISON: CT of the internal auditory canals on 05/07/2020. FINDINGS: There is a 1.1 x 1.2 x 1.2 cm (CC x TV x AP) meningioma that projects into the cisterna magna at the level of the foramen magnum. The cerebellopontine angles are normal, with no evidence of extra-axial mass or aneurysm. The VII/VIII nerve complexes appear normal on the right. On the left, there is thickening of the left 7th, 8th and 9th nerve complexes at the level of the porus acusticus, in addition to diminutive size of the canalicular segment of the left vestibular nerve, consistent with reported surgical changes. No lesion is noted along the course of the nerves. The upper cervical spinal cord and spine are normal. The scalp and calvarium are normal. The superior sagittal sinus demonstrates normal venous flow. The corpus callosum is normal in shape and signal intensity. The posterior fossa is unremarkable. The pituitary and sella are normal. Diffusion weighted images reveal no hyperintensities to suggest acute cerebral infarction. The susceptibility weighted sequences reveal no evidence of acute or chronic hemorrhage. The ventricles are normal in size and position without evidence of hydrocephalus. The paranasal sinuses are normal. The visualized portions of the mastoids are unremarkable. The orbits appear normal. Normal flow voids are demonstrated in the carotid arteries and basilar artery. IMPRESSION: 1. Postsurgical changes in the left 7th, 8th and 9th nerve complexes, as evidenced by thickening around the porus acusticus, in addition to diminutive size of the canalicular segment of the left vestibular nerve. No lesion is noted along the course of the ureters. 2. 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 Dictated by: Desmond Matta M.D. The radiology attending physician has personally reviewed this study, and had reviewed and/or edited this written report and agrees with it. Electronically signed by: Madison Giron M.D. Darshana Toth MD IMG MRI PROCEDURES Final Resu lt documented in this encounter Visit Diagnoses Diagnosis Sensorineural hearing loss, asymmetrical documented in this encounter Care Teams Insulation Board Calender Operator Relationship Specialty Start Date End Date Enmanuel Gan MD [address] [facility] [address] [place], [place] [id number] PCP - General Internal Medicine 04/26/20 documented as of this encounter
--- OUTSIDE RECORDS SUMMARY | 2024-07-12 08:57 | XMS_ITS | Encounter Summary ---
Author Organization [facility] Address [address] [place] [address] Care Team Providers Care Account Solutions Analyst Name Role Phone Enmanuel Gan MD Primary Care Provider [phone] Reason for Visit * Reason Onset Date Comments Chest Pain 06/28/2020 Encounter Details Date Type Department Care Team (Late st Contact Info) Description 06/28/2020 Telephone [facility] Cardiology [address] [place] [address] Tg Houston MD [address] [place] [address] [address] [place] [address] Chest Pain Social History Tobacco Use Types Packs/Day Years Used Date Smoking Tobacco: Never Smokeless Tobacco: Never Alcohol Use Standard Drinks/Week Comments Yes 5 (1 standard drink = 0.6 oz pur e alcohol) Comments No Sex and Gender Information Value Date Recorded Sex Assigned at Not on file Legal Sex Female 9:09 PM CHIEF TELEPHONE OPERATOR Gender Identity Not on file Sexual Orientation Lesbian 05/24/2019 9: 06 AM CDT documented as of this encounter Miscellaneous Notes * Telephone Encounter - Tg Houston MD - 06/28/2020 11:13 AM CHIEF TELEPHONE OPERATOR Received a call from Dr. Hawthorne that patient is currently hospitalized at [facility] after an episode nonexertional chest discomfort lasting over an hour. Troponin was 0.1, but serial troponins have been flat. She has had no further symptoms. We discussed options for evaluation, and agreed that given her history microvascular angina, yet risk factors for coronary artery disease a nuclear stress test would be appropriate. An echocardiogram raises some concern about possible apical hypokinesis, sothis will also be resolved with a nuclear study. If any evidence of ischemia she will undergo cardiac catheterization. F TELEPHONE OPERATOR documented in this encounter Plan of Treatment Not on file documented as of this encounter Visit Diagnoses Not on filedocumented in this encounter Care Teams Account Solutions Analyst Relationship Specialty Start Date End Date Enmanuel Gan MD [address] [facility] [address] [place], [place] [id number] PCP - General Internal Medicine 04/26/20 documented as of this encounter
--- OUTSIDE RECORDS SUMMARY | 2024-07-12 08:57 | XMS_ITS | Encounter Summary ---
Author Organization [facility] Address [address] [place] [address] Phone Care Team Providers Care Upper Shaper Name Role Phone Enmanuel Gan MD Primary Care Provider [phone] Encounter Details Date Type Department Care Team (Late st Contact Info) Description 06/08/[address] [facility] Orthopaedic Surgery [address] [place] [address] [place] [id number] Kyler Hunt MD [address] [facility] [facility] [address] [place] [address] DDD (degenerative disc disease), lumbar (Primary Dx); Spondylosis without myelopathy or radiculopathy, lumbosacral region Social History Tobacco Use Types Packs/Day Years Used Date Smoking Tobacco: Never Smokeless Tobacco: Never Alcohol Use Standard Drinks/Week Comments Yes 0 (1 standard drink = 0.6 oz pur e alcohol) Comments Unknown Sex and Gender Information Value Date Recorded Sex Assigned at Not on file Legal Sex Female 9:09 PM PATHOLOGY MANAGER Gender Identity Not on file Sexual Orientation Lesbian 05/24/2019 9: 06 AM CDT documented as of this encounter Plan of Treatment Not on file documented as of this encounter Visit Diagnoses Diagnosis DDD (degenerative disc disease), lumbar- Primary Degeneration of lumbar or lumbosacral intervertebral disc Spondylosis without myelopathy or radiculopathy, lumbosacral region documented in this encounter Care Teams Upper Shaper Relationship Specialty Start Date End Date Enmanuel Gan MD [address] [facility] [address] [place] [address] PCP - General Internal Medicine 04/26/20 documented as of this encounter
--- OUTSIDE RECORDS SUMMARY | 2024-07-12 08:58 | XMS_ITS | Encounter Summary ---
Author Organization [facility] Address [address] [place] [address] Phone Care Team Providers Care Unhairing Inspector Name Role Phone Enmanuel Gan MD Primary Care Provider [phone] Reason for Visit * Reason Comments PT Initial Eval * Consultation (Routine) - Closed Specialty Diagnoses / Procedures Referred By Contac t Referred To Contact Physical Therapy Diagnoses Spinal deformity Kyler Hunt MD [address] [facility] [address] Phone: tel: fax: [facility] (All Locations) Referral ID Status Reason Start Date Expiration Date V isits Requested Visits Authorized [id number] Closed Specialty Services Required 04/26/2020 04/26/2021 12 12 Encounter Details Date Type Department Care Team (Late st Contact Info) Description 05/29/2020 11:00 AM CANE FLUME WATCHER Therapy [facility] Physical Therapy [address] [facility] 1st Floor [address] [place] [address] Guerrero Hunter DPT [address] [facility] [address] [place] [address] Spinal deformity (Primary Dx); Chronic bilateral low back pain with right-sided sciatica Social History Tobacco Use Types Packs/Day Years Used Date Smoking Tobacco: Never Smokeless Tobacco: Never Alcohol Use Standard Drinks/Week Comments Yes 0 (1 standard drink = 0.6 oz pur e alcohol) Comments Unknown Sex and Gender Information Value Date Recorded Sex Assigned at Not on file Legal Sex Female 9:09 PM CANE FLUME WATCHER Gender Identity Not on file Sexual Orientation Lesbian 05/24/2019 9: 06 AM CDT documented as of this encounter Progress Notes * Guerrero Hunter, DPT - 05/29/2020 11:00 AM CST Physical Therapy Initial Evaluation Macie Briseno 1945 74 y.o. female Kyler Hunt MD [address] [facility] 6A/6B/12A [place] [address] ICD-9-CM ICD-10-CM 1. Spinal deformity 756.10 Q76.49 Ambulatory referral order to Physical Therapy - 2. Chronic bilateral low back pain with right-sided sciatica 724.2 M54.41 724.3 G89.29 338.29 Date of Service: 05/29/2020 Subjective History: History of current complaint: Patient presents this date with chronic low back pain. PMH significant for 3 surgeries resulting lumbar spinal fusion. She also experiences radicular symptoms bilaterally R>L and has continued to experience numbness and tingling along the medial aspect of her knees.She describes her low back pain as intense achiness that is relieved with rest. Diagnostic testing: MRI (05/21/2020) - 1. Acute/subacute compression deformity of L2 vertebral body. 2. Moderate spinal canal and neuroforaminal stenosis at L1-L2 and L2-L3 3. Postsurgical changes of posterior fusion from L2-L4 with interbody fusion from L2-S1. CT (05/17/2020) - Anterior and posterior spinal fusion from L2 through S1. There has been interval fusion of L2-L3 with evidence of fusion failure at this level. Persistent partial fusion at L3-L4 with increased bony Bridging. Xray (04/26/2020) - 1. Unchanged instrumented posterior spinal fusion from L2 through L4, noninstrumented posterior spinal fusion from L4 through S1, discectomy with interbody fusion from L2 through S1 and posterior lumbar spine decompression. 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 Sports/Leisure/Fitness activities: wood burning Goal(s): decrease pain and improve ADL performance Objective Standing Alignment Thoracic spine: kyphotic and swayback Lumbar spine: flat Pelvis: normal and rotated right Iliac crest height (preferred): left high Iliac crest height (feet apart): left high Hip Right femoral medial rotation Left femoral medial rotation Knee Right valgus Left valgus Movement Testing Standing: Forward Bend/Return Movement Pattern Symptoms Symptoms Modifable with Correction? Forward thoracic spine > lumbar spine and hips > lumbar spine no change N/A Return sway at end no change N/A Standing: Trunk Rotation: ROM R=L Movement Pattern Symptoms Femoral rotation Symptoms Modifable with Correction? Right shifts off axis no change N/A Left shifts off axis no change N/A Single Leg Stance Movement Pattern Symptoms Symptoms Modifable with Correction? Right femoral medial rotation, knee hyperextension and Positive trendelenberg no change N/A Left femoral medial rotation, knee hyperextension and Positive trendelenberg no change N/A Preferred Sitting: upright using back of chair Sitting Knee Extension Movement Pattern Symptoms Symptoms Modifable with Correction? Neural Tension Hamstring Length Gastroc Length Right lumbar flexion and lumbar rotation no change N/A No short and stiff stiff Left lumbar flexion and lumbar rotation no change N/A No short and stiff stiff Preferred Supine Position: hooklying Hip Range of Motion Hip Flexed Hip Ext Raghav's Test Right MR=LR MR=LR normal Left MR=LR MR=LR normal Supine Single Knee to Chest ROM Movement Pattern Symptoms Symptoms Modifable with Correction? Right WFL Passive: lumbar flexion Active: lumbar rotation and lumbar extension increase Yes - LP stabilization Left WFL Passive: lumbar flexion Active: lumbar rotation and lumbar extension increase Yes - femoral caudal glide Sidelying posture: hip adduction and hip medial rotation Symptoms modifiable with correction? Yes Primary correction: 2 pillows between knees Sidelying Hip Abduction/LR (clamshell) Movement Pattern Symptoms Symptoms Modifable with Correction? Right normal increase N/A - hard to differentiate between muscle activation and pain Left normal increase N/A - same as above Prone posture: flat Symptoms modifiable with correction? No Primary correction: n/a Knee Flexion Movement Pattern Symptoms Symptoms Modifiable with Correction? Primary Correction Right Passive: lumbopelvic extension and rotation Active:lumbopelvic extension and rotation Increased perception of stretch in the anterior thigh andhip Passive: Yes Active: Yes Hip abduction Left Passive:lumbopelvic extension and rotation Active:lumbopelvic extension and rotation Same as above Passive: Yes Active: Yes Hip abduction Quadruped Rocking Back Movement Pattern Symptoms Symptoms Modifable with Correction? lumbar flexion and left hip high (decreased left hip flexion) no change Yes MMT Lower abdominals Performance level: deferred to follow-up Right Left Deep Lateral Rotators Deep Medial Rotators Iliopsoas TFL Quadriceps Glute Max PGM Muscle Length Right Left Hamstring 90/90 short and stiff short and stiff Hamstring SLR stiff stiff TFL Short and Stiff Short and Stiff Rectus Femoris Stiff Stiff Iliopsoas stiff stiff Functional Mobility Movement Pattern Symptoms Symptoms Modifable with Correction? Sit to/from Stand UE assist and hip adduction/medial rotation no change Yes - hip abd/LR Gait: deferred to follow-up Pain: Movement pattern: Symptoms modifiable? Modified Oswestry: MODIFIED OSWESTRY LOW BACK PAIN QUESTIONNAIRE 05/28/2020 Section 1 - Pain Intensity 3 - Pain medication provides me with moderate relief from pain Section 2 - Personal Care (e.g., washing, [...] than 1 hour Section 6 - Standing 4 - Pain prevents me from standing for more than 10 minutes Section 7 - Sleeping 1 - I can sleep well only using pain medication Section 8 - Social Life 3 - Pain prevents me from going out very often Section 9 - Traveling 3 - My pain restricts my travel over 1 hour Section 10 - Employment/Homemaking 3 - Pain prevents me from doing anything but light duties Modified Oswestry Low Back Pain Score 26 Percentage 52 Treatment Provided: Movement diagnosis - hip adduction with medial rotation syndrome Done? HEP THERAPEUTIC EXERCISE Parameters Comments New x Sit to/from stand 2-3x8 1-2x/day Beige TB New x sidelying hip abd/LR NEURO RE-ED Parameters Comments THERAPEUTIC ACTIVITY Parameters Comments x Patient education -Anatomy & kinesiology education -Tissue susceptible to movement and movement pattern correction (lumbar, gluteal and LE mm) -standing posture: slight hip abduction and lateral rotation, soft knees -sleeping posture: 2 pillows between knee -Home Exercise Program Next visit: + review standing posture + assess gait and stair navigation as able + review exercises and progress as able + add back extensor strengthening + add lower abdominal strength as able + discuss cardiovascular endurance Patient was educated about the following activities: Direction susceptible to movement and movement correction, Home Exercise Program, Posture, Sit to/from Stand and Sleep position Assessment/Plan: Chief Complaint PT Initial Eval Patient is a 74 y.o.-year-old female who presents to physical therapy with a chief complaint of lowback pain with associated radiculopathy. During examination pain was provoked with sit to/from stand, standing, R and L active unilateral hip flexion with knee flexed, L sidelying hip abduction with lateral rotation. 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 Pt stands with kyphotic thoracic spine, swayback, flat lumbar spine, R pelvic rotation, B femoral medial rotation and genu valgum. Additional factors leading to diagnosis include: short/stiff 2- joint hip flexors, decreased functional strength/neural control of gluteal mm. Other contributing or associated factors include: PMH significant for lumbar fusion L2-L4 and L4-S1. Patient was educated on the importance of avoiding excessive flexion, rotation and axial loading of her spine and to increase the utilization of her hip joints for functional mobility. Will benefit from PT for patient education, strengthening, stretching, ROM, HEP, taping PRN, functional mobility training and stretching/strengthening to address the muscles listed above as well as for neuromuscularre - education to improve movement pattern with functional activities. Fair prognosis. Patient consented to treatment and plan. Short Term Goals: (4 weeks) Goal Description New Ongoing Partially Met Met Deferred The patient will decrease c/o pain with functional activities to 7-8/10 at worst. X The patient will demonstrate improved static posture in standing. X The patient will demonstrate improved movement pattern with sit to/from stand. X The patient will be independent with strategies designed to help manage symptoms with the followingactivities: ADLs X The patient will demonstrate HEP with minimal guidance X Senior Living Goals: (8 weeks) Goal Description New Ongoing Partially Met Met Deferred The patient will decrease c/o pain with functional activities to 6-7/10 at worst. X The patient will perform the following functional activities with little to no pain: standing for up to 20 minutes and ambulation up to 25 minutes. X The patient will be independent with strategies designed to help manage symptoms with the followingactivities: rec activities as desired. X The patient be independent with final HEP needed for sustained correction of movement impairments. X Frequency/Duration: 1x/week for 8 weeks Total treatment time: 60 min Guerrero Hunter DPT FLUME WATCHER documented in this encounter Plan of Treatment Not on file documented as of this encounter Visit Diagnoses Diagnosis Spinal deformity- Primary Chronic bilateral low back pain with right-sided sciatica documented in this encounter Orders Outpatient Referral Count Last Ordered Date st Ordered Date AMB REFERRAL ORDER TO PHYSICAL THERAPY 1 documented in this encounter Care Teams Unhairing Inspector Relationship Specialty Start Date End Date Enmanuel Gan MD [address] [facility] [address] [facility] [[email or web address] [address] [place] [address] PCP - General Internal Medicine 04/26/20 documented as of this encounter
--- OUTSIDE RECORDS SUMMARY | 2024-07-12 08:58 | XMS_ITS | Encounter Summary ---
Author Organization [facility] Address [address] [place] [address] Phone Care Team Providers Care Retail Manager Name Role Phone Enmanuel Gan MD Primary Care Provider [phone] Encounter Details Date Type Department Care Team (Late st Contact Info) Description 05/22/[address] 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 Toth at the [facility] documented in this encounter Plan of Treatment Not on file documented as of this encounter Visit Diagnoses Not on filedocumented in this encounter Care Teams Retail Manager Relationship Specialty Start Date End Date Enmanuel Gan MD [address] [facility] [address] [facility] [address] [facility] [facility] [place] [id number] PCP - General Internal Medicine 04/26/20 documented as of this encounter
--- OUTSIDE RECORDS SUMMARY | 2024-07-12 08:58 | XMS_ITS | Encounter Summary ---
Author Organization [facility] Address [address] [place] [address] Phone Care Team Providers Care Land Surveyor Assistant Name Role Phone Rg Read MD Primary Care Provider Enmanuel Gan MD Primary Care Provider [phone] Reason for Visit * Reason Comments Hearing Loss * Consultation (Routine) - Closed Specialty Diagnoses / Procedures Referred By Gigi orosco Referred To Contact Otolaryngology Diagnoses Meniere's disease of both ears Rg Read MD Phone: tel: fax: [facility] (All Locations) Referral ID Status Reason Start Date Expiration Date V isits Requested Visits Authorized [id number] Closed Specialty Services Required 03/17/2020 04/16/2021 3 3 Encounter Details Date Type Department Care Team (Latest Contact Info) Description 04/16/2020 5:00 PM CDT Office Visit [facility] ([facility]) - [facility] ENT [address] [facility] 11th [place] [address] [place] [id number] Darshana Toth MD [address] [place] [address] Sensorineural hearing loss (SNHL) of both ears (Primary Dx) Social History Tobacco Use Types Packs/Day Years Used Date Smoking Tobacco: Never Smokeless Tobacco: Never Alcohol Use Standard Drinks/Week Comments Yes 0 (1 standard drink = 0.6 oz pur e alcohol) Comments Unknown Sex and Gender Information Value Date Recorded Sex Assigned at Not on file Legal Sex Female 9:09 PM CERTIFIED OPHTHALMIC TECHNICIAN Gender Identity Not on file Sexual Orientation Lesbian 05/24/2019 9: 06 AM CDT documented as of this encounter Progress Notes * Darshnaa Toth MD - 04/16/2020 5:00 PM CDT Macie García [place] was seen in consultation at the request of Dr. Read. Chief Complaint: Chief Complaint Patient presents with ??? Hearing Loss Interval: The patient returns for follow-up evaluation. Overall she has done well since her prior evaluation.She denies any vertigo attacks since her left vestibular nerve section and is overall pleased with having had the nerve section. Her primary struggle right now is secondary to hearing loss and decreased benefit from bilateral hearing aids.. She did undergo cochlear implant evaluation today. From previous: HPI: This is a 74 y.o. female [...] her primary care physician for depression. This was initiated last year and she has been trying to wean off of this medication and noted that her Meniere's symptoms have worsened since stopping therapy last week. She presents today for evaluation and possible Decadron perfusion. Past Medical/Surgical History Past Medical History: Diagnosis Date ??? Auditory vertigo Meniere's disease Past Surgical History: Procedure Laterality Date ??? BACK SURGERY lower back ??? CHOLECYSTECTOMY Cholecystectomy ??? OTHER SURGICAL HISTORY 1999 Sectioning of left vesibular nerve Past Family/Social History Family History Problem Relation [...] Neg Hx ??? Sudden Cardiac Neg Hx Social History Socioeconomic History ??? [...] and Sexual Activity ??? Alcohol use: Yes ??? Drug use: No ??? Sexual activity: Not on file Lifestyle ??? Physical activity Days per week: Not on file Minutes per session: Not on file ??? Stress: Not on file Relationships ??? Social connections Talks on phone: Not on file Gets together: Not on file Attends restoration service: Not on file Active member of [...] 2 (two) times a day asneeded (dizziness) 60 tablet 1 ??? atorvastatin (LIPITOR) 20 mg tablet 20 mg daily ??? b complex vitamins tablet take 1 Tablet by Oral route every day 0 0 ??? cetirizine (ZyrTEC) 10 mg capsule 10 mg daily ??? cholecalciferol (VITAMIN D3) 5,000 unit tablet take 1 Tablet by Oral route once 0 0 ??? coenzyme Q10 (CO Q-10) 100 mg capsule take 1 Capsule by Oral route once 0 0 ??? cyclobenzaprine (FLEXERIL) 10 mg tablet TAKE ONE TABLET BY MOUTH NIGHTLY BEFORE BEDTIME ??? diltiazem (TIAZAC) 180 mg 24 hr capsule take 1 capsule (180MG) by oral route every day 90 3 ??? DULoxetine DR (CYMBALTA) 30 mg capsule ??? fluticasone (FLONASE) 50 mcg/actuation nasal spray inhale 1 spray (50MCG) by intranasal route every day in each nostril 0 ??? ibuprofen (ADVIL,MOTRIN) 800 mg tablet Take by mouth every 6 (six) hours as needed ??? montelukast (SINGULAIR) 10 mg tablet Take 10 mg by mouth daily ??? PARoxetine (PAXIL) 20 mg tablet 1/2 tab daily in the AM for 10 days, then 1 tab daily in the AM. ??? triamterene-hydroCHLOROthiazide 37.5-25 mg per capsule TAKE ONE CAPSULE BY MOUTH ONCE DAILY 90 capsule 3 No current facility-administered medications for this visit. Allergies: Sulfa (sulfonamide antibiotics), Immunizations: There is no immunization history on file for this patient. Review of Systems Review of Systems: Pertinent [...] for evaluation of bilateral Meniere's disease, BPPV, sensorineural hearing loss and depression. The patient is going through the cochlear implant evaluation process. If she proceeds a cochlear implantation her left ear that had the vestibular nerve section is her worse hearing ear and this would likely be her preferred ear implantation. I will plan on seeing her back in 1 year with repeat audiometric evaluation or sooner if symptoms change. Addendum 06/19/2020: We again reviewed the option of cochlear implantation as well as the associated risks of bleeding, infection, loss of hearing, dizziness, facial paralysis and the device failure were discussed and the patient consents to proceed cochlear implant surgery given the inability to use a hearing aid in her worse hearing ear as well as the progressive decline in hearing in the contralateral ear. Darshana Toth M.D. Otology and Neurotology Department of Otolaryngology [facility] in [email or web address] [email or web address] Office: Clinic: IFIED OPHTHALMIC TECHNICIAN documented in this encounter Plan of Treatment Not on file documented as of this encounter Visit Diagnoses Diagnosis Sensorineural hearing loss (SNHL) of both ears- Primary documented in this encounter Historical Medications * This list may reflect changes made after this encounter. ibuprofen (ADVIL,MOTRIN) 800 mg tabletIndications :Pain Take 800 mg by mouth every 6 (six) hours as needed 03/23/2020 07/10/2020 added in this encounter Care Teams Land Surveyor Assistant Relationship Specialty Start Date End Date Rg Read MD PCP - General 06/21/13 04/25/20 Enmanuel Gan MD [address] [facility] [address] [place] [address] PCP - General Internal Medicine 04/26/20 documented as of this encounter
--- OUTSIDE RECORDS SUMMARY | 2024-07-12 08:58 | XMS_ITS | Encounter Summary ---
Author Organization [facility] Address [address] [place] [address] Phone Care Team Providers Care Certified Medical Aide Name Role Phone Enmanuel Gan MD Primary Care Provider [phone] Reason for Visit * Audiology (Routine) - Canceled Specialty Diagnoses / Procedures Referred By Gigi orosco Referred To Contact Audiology Diagnoses Sensorineural hearing loss, bilateral Procedures Evaluation, cochlear implant programming and auditory rehabilitation per [facility] adult cochlear implant protocol Zee Garcia Au.D. [address] [place] [address] Phone: tel: fax: Referral ID Status Reason Start Date Expiration Date V isits Requested Visits Authorized [id number] Canceled 04/30/2020 05/30/2021 1 1 Encounter Details Date Type Department Care Team (Latest Contact Info) Description 05/07/2020 3:00 PM CDT Procedure visit [facility] [address] [facility] 11th [place] [address] [place] [address] Zee Garcia Au.D. 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 - 05/07/2020 3:00 PM CDT Procedures Diagnosis: Sensorineural hearing loss, bilateral Physician: Darshana Toth MD Services Provided: Evaluation of AR Status - Initial Evaluation Prior to Cochlear Implantation (Time: 3:30-4:45 pm) Procedures: The patient attended the session with Sunita. EVALUATION: Client Oriented Scale Of Improvement (COSI) Phase I: The patient identifies listening situations that she/he would like to have improved following cochlear implantation and/or hearing aid fitting. 1. Understanding conversation in a small group [...] TV without turning on the high volume Conversational satisfaction ratin, moderately satisfied Hearing Handicap inventory for Adults (HHIA): The purpose of this scale is to identify the problemsthe hearing loss may be causing the patient at the time of administration. Determine the presence of perceived emotional and situational hearing handicaps. Emotional questions score: 34 Mild to moderate Situational questions score: 28 Mild to moderate Total Score: 62 Significant Handicap (>43 significant handicap) CUNY Sentence Testing: Aided, live voice, auditory only condition, practice items provided LE COUCH- RE plugged List 13 Score: 31/102 = 30% Binaural List 1 Score: 96/102 = 94% CUNY Sentence Testing TELEPHONE: Aided, live voice, practice items provided RE Unaided (normal listening condition) List 14 Score: 70/102 = 69% LE Unaided List 15 Score: = 26% Significant Other Assessment of Communication: The patient's partner, Sunita, completed the questionnaire and ratings were as follows- Various Communication Situations - about half the time to practically always Feelings About Communication - about half the time to practically always Other People - about half the time to practically always Omar Cognitive Assessment (MoCA): Designed as a rapid screening instrument for mild cognitive dysfunction. It assesses different cognitive domains: attention and concentration, executive functions, memory, language, visuoconstructional skills, conceptual thinking, calculations, and orientation. Patient's Score: AURAL REHABILITATION: As patient is still deciding between Cochlear [employer] and Med-El, she was given information regarding Cochlear Nucleus Smart and Med-El [employer] [place] virgilio download, and respective account sign up information. Patient was given the handout, Suggestions For Family And Friends. Highlighted some specific communication strategies that they can begin working on now. IMPRESSIONS/PLAN: Aural rehabilitation following Cochlear Implantation is recommended. Hearing loss reduces the audibility of speech and impairs communication. Experiencing a hearing loss reduces overall quality of life. Pt. will benefit from auditory training to optimize speech understanding with the cochlear implant. Pt. will benefit from learning compensatory strategies for dealing with difficult listening situations. Pt. will be educated on hearing assistive technology which are other devices that help a person to hear and understand what is being said more clearly. Pt. will benefit from telephone training so she may be able to understand speech better over the telephone documented in this encounter Plan of Treatment Not on file documented as of this encounter Visit Diagnoses Diagnosis Sensorineural hearing loss, bilateral documented in this encounter Orders Audiology Count Last Ordered Date First Orde red Date EVALUATION, COCHLEAR IMPLANT PROGRAMMING AND AUDITORY REHABILITATION 2 05/07/2020 documented in this encounter Care Teams Certified Medical Aide Relationship Specialty Start Date End Date Enmanuel Gan MD [address] [place] [address] [place] [address] PCP - General Internal Medicine 04/26/20 documented as of this encounter
--- OUTSIDE RECORDS SUMMARY | 2024-07-12 08:58 | XMS_ITS | Encounter Summary ---
Author Organization [facility] Address [address] [place] [address] Phone Care Team Providers Care Circulation Worker Name Role Phone Enmanuel Gan MD Primary Care Provider [phone] Reason for Visit * Audiology (Routine) - Closed Specialty Diagnoses / Procedures Referred By Contac t Referred To Contact Audiology Diagnoses Sensorineural hearing loss, bilateral Procedures Evaluation, cochlear implant programming and auditory rehabilitation per [facility] adult cochlear implant protocol Darshana Toth MD [address] [facility] [address] [place] [address] Phone: tel: fax: [facility] [address] [place] [address] 11th [place] [address] [place] [address] Phone: tel: fax: Referral ID Status Reason Start Date Expiration Date Visits Re quested Visits Authorized [id number] Closed 04/30/2020 05/30/2021 12 12 Encounter Details Date Type Department Care Team (Latest Contact Info) Description 05/07/2020 12:30 PM CDT Procedure visit 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 Referred by: Darshana Toth M.D. The patient attended the session with her partner, Sunita. She reported: -She read the candidacy packet contents and welt slasher packets prior to the visit. -She is unsure which welt slasher she would like but is leaning toward Cochlear or MED-EL. ?? The following were discussed with the patient: Cochlear, Med El and AB welt slasher device comparison sheet was reviewed and demo kits were shown. Preferred welt slasher: Cochlear or MED-EL Vaccinations - Patient had them at her pharmacy, will try to obtain records Expectations sheet: postlingual - also discussed with patient that hearing with the CI alone may never be as good as her COUCH ear.? Post-op schedule and auditory rehabilitation with helper MRI considerations - discussed keeping medical ID card with her at all times Recommended ear of implantation: Left Patient ear preference: Left The patient was provided with a copy of order forms and information to contact consumer specialistsfor Cochlear and MED-EL. Pertinent patient decisions to make were highlighted on order forms and reviewed with patient. The patient will call us when she has decided on her welt slasher and accessories per order form. ?? RECOMMENDATIONS: Choose device welt slasher Proceed to CI surgery Return for initial stimulation of cochlear implant Cosigned by Jasmin Winter, PhD at 05/11/2020 2:23 PM CDT documented in this encounter Plan of Treatment Not on file documented as of this encounter Visit Diagnoses Diagnosis Sensorineural hearing loss, bilateral documented in this encounter Orders Audiology Count Last Ordered Date First Orde red Date EVALUATION, COCHLEAR IMPLANT PROGRAMMING AND AUDITORY REHABILITATION 2 05/07/2020 documented in this encounter Care Teams Circulation Worker Relationship Specialty Start Date End Date Enmanuel Gan MD [address] [facility] [address] [facility] [address] [place] [address] PCP - General Internal Medicine 04/26/20 documented as of this encounter
--- OUTSIDE RECORDS SUMMARY | 2024-07-12 08:58 | XMS_ITS | Encounter Summary ---
Author Organization [facility] Address [address] [place] [address] Care Team Providers Care Alumni Coordinator Name Role Phone Enmanuel Gan MD Primary Care Provider [phone] Reason for Referral * Diagnostic Imaging (Routine) - Closed Specialty Diagnoses / Procedures Referred By Contac t Referred To Contact Radiology Diagnoses DDD (degenerative disc disease), lumbar Procedures MRI Lumbar Spine WO Contrast Kyler Hunt MD [address] [facility] [address] [place] [address] Phone: tel: fax: [address] [address] Referral ID Status Reason Start Date Expiration Date Visits Re quested Visits Authorized [id number] Closed 05/07/2020 06/06/2021 1 1 Reason for Visit * Diagnostic Imaging (Routine) - Closed Specialty Diagnoses / Procedures Referred By Contac t Referred To Contact Radiology Diagnoses DDD (degenerative disc disease), lumbar Procedures MRI Lumbar Spine WO Contrast Kyler Hunt MD [address] [facility] [place] [address] Phone: tel: fax: [address] [address] Referral ID Status Reason Start Date Expiration Date Visits Re quested Visits Authorized [id number] Closed 05/07/2020 06/06/2021 1 1 Encounter Details Date Type Department Care Team (Latest Contact Info) Description 05/21/2020 10:08 AM CDT - 05/21/2020 11:59 PM CDT Hospital Encounter [facility] [address] [place] [address] Kyler Hunt MD [address] [facility] [address] [place] [address] DDD (degenerative disc disease), lumbar Discharge Disposition: Discharge to home or self care Social History Tobacco Use Types Packs/Day Years Used Date Smoking Tobacco: Never Smokeless Tobacco: Never Alcohol Use Standard Drinks/Week Comments Yes 0 (1 standard drink = 0.6 oz pur e alcohol) Comments Unknown Sex and Gender Information Value Date Recorded Sex Assigned at Not on file 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 Gender Identity Not on file Sexual Orientation [...] day in each nostril 0 06/15/2012 4 ibuprofen (ADVIL,MOTRIN) 800 mg tabletIndication s:Pain Take 800 mg by mouth every 6 (six) hours as needed 03/23/2020 0 montelukast (SINGULAIR) 10 mg tabletIndication s:Seasonal [...] CONTRAST Schedule Routine, Read Routine (OP Routine) 05/21/2020 11:07 AM CDT DDD (degenerative disc disease), lumbar documented in this encounter Results * MRI Lumbar Spine WO Contrast (05/21/2020 11:07 AM CDT) Anatomical Region Laterality Modality Spine N/A Magnetic Resonan ce 05/21/2020 1:30 PM CDT Impressions 05/21/2020 1:59 PM CDT 1. Acute/subacute compression deformity of L2 vertebral body. 2. Moderate spinal canal and neuroforaminal stenosis at L1-L2 and L2-L3 3. Postsurgical changes of posterior fusion from L2-L4 with interbody fusion from L2-S1. Dictated by: Alexys Esparza M.D. The radiology attending physician has personally reviewed this study, and had reviewed and/or edited this written report and agrees with it. Electronically signed by: Eugenio Obregon M.D, PHD Narrative 05/21/2020 1:59 PM CDT EXAMINATION: Magnetic resonance imaging (MRI) of the lumber spine without contrast. HISTORY: Fusion from L2-S1 with fusion failure at L2-L3. TECHNIQUE: Multiplanar multi-weighted MRI of the lumbar spine was performed without intravenous contrast using the standard lumbar spine protocol. COMPARISON: CT 05/17/2020. FINDINGS: Postsurgical changes of posterior spinal fusion from L2-L4 with interbody fusion from L2-S1. ??There is retrolisthesis of L2 on L3. There is a mild disc bulge with ligamentum flavum infolding at L1-L2 resulting in moderate spinal canal stenosis with moderate facet arthropathy and moderate neuroforaminal stenosis. ??There is a disc bulge with left paracentral disc protrusion at L2-L3 resulting in moderate canal stenosis and moderate bilateral neuroforaminal stenosis. The hardware failure at L2-L3 is not well characterized on this MRI relative to recent CT examination. There is endplate edema involving the L2 vertebral body with some height loss. The conus medullaris terminates at the level of L1-L2. The distal spinal cord signal intensity is normal. There are no annular fissures identified. Left renal cyst. The aorta is normal. Procedure Note Eugenio Obregon MD PhD - 05/21/2020 EXAMINATION: Magnetic resonance imaging (MRI) of the lumber spine without contrast. HISTORY: Fusion from L2-S1 with fusion failure at L2-L3. TECHNIQUE: Multiplanar multi-weighted MRI of the lumbar spine was performed without intravenous contrast using the standard lumbar spine protocol. COMPARISON: CT 05/17/2020. FINDINGS: Postsurgical changes of posterior spinal fusion from L2-L4 with interbody fusion from L2-S1. There is retrolisthesis of L2 on L3. There is a mild disc bulge with ligamentum flavum infolding at L1-L2 resulting in moderate spinal canal stenosis with moderate facet arthropathy and moderate neuroforaminal stenosis. There is a disc bulge with left paracentral disc protrusion at L2-L3 resulting in moderate canal stenosis and moderate bilateral neuroforaminal stenosis. The hardware failure at L2-L3 is not well characterized on this MRI relative to recent CT examination. There is endplate edema involving the L2 vertebral body with some height loss. The conus medullaris terminates at the level of L1-L2. The distal spinal cord signal intensity is normal. There are no annular fissures identified. Left renal cyst. The aorta is normal. IMPRESSION: 1. Acute/subacute compression deformity of L2 vertebral body. 2. Moderate spinal canal and neuroforaminal stenosis at L1-L2 and L2-L3 3. Postsurgical changes of posterior fusion from L2-L4 with interbody fusion from L2-S1. Dictated by: Alexys Esparza M.D. The radiology attending physician has personally reviewed this study, and had reviewed and/or edited this written report and agrees with it. Electronically signed by: Eugenio Obregon M.D, PHD Kyler Hunt MD IMG MRI PROCEDURES Final Re sult documented in this encounter Visit Diagnoses Diagnosis DDD (degenerative disc disease), lumbar Degeneration of lumbar or lumbosacral intervertebral disc documented in this encounter Care Teams Alumni Coordinator Relationship Specialty Start Date End Date Enmanuel Gan MD [address] [facility] [address] [facility] [address] [place] [address] PCP - General Internal Medicine 04/26/20 documented as of this encounter
--- OUTSIDE RECORDS SUMMARY | 2024-07-12 08:58 | XMS_ITS | Encounter Summary ---
Author Organization [facility] Address [address] [place] [address] Phone Care Team Providers Care Academic Interventionist Name Role Phone Enmanuel Gan MD Primary Care Provider [phone] Reason for Referral * Diagnostic Imaging (Routine) - Closed Specialty Diagnoses / Procedures Referred By Contac t Referred To Contact Radiology Diagnoses Sensorineural hearing loss, asymmetrical Procedures MRI Internal Auditory Canal Incl Brain WO Contrast Darshana Toth MD [address] [place] [address] Phone: tel: fax: [address] [address] Referral ID Status Reason Start Date Expiration Date Visits Re quested Visits Authorized [id number] Closed 06/06/2020 07/06/2021 1 1 NG CREW PUSHER Encounter Details Date Type Department Care Team (Late st Contact Info) Description 06/06/2020 Orders Only [facility] Otolaryngology [address] [place] [address] Krissy Valdez CMA Sensorineural hearing loss, asymmetrical (Primary Dx) Social History Tobacco Use Types Packs/Day Years Used Date Smoking Tobacco: Never Smokeless Tobacco: Never Alcohol Use Standard Drinks/Week Comments Yes 0 (1 standard drink = 0.6 oz pur e alcohol) Comments Unknown Sex and Gender Information Value Date Recorded Sex Assigned at Not on file 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 ??Postsurgical changes in the left 7th, [...] Madison Giron M.D. Narrative 06/09/2020 3:42 PM CASING CREW PUSHER EXAMINATION: Magnetic resonance imaging (MRI) of the [...] Diagnoses Diagnosis Sensorineural hearing loss, asymmetrical- Primary Sensorineural hearing loss, asymmetrical documented in this encounter Care Teams Academic Interventionist Relationship Specialty Start Date End Date Enmanuel Gan MD [address] [facility] [address] [place] [address] PCP - General Internal Medicine 04/26/20 documented as of this encounter
--- OUTSIDE RECORDS SUMMARY | 2024-07-12 08:58 | XMS_ITS | Encounter Summary ---
Author Organization [facility] Address [address] [place] [address] Phone Care Team Providers Care Cartridge Assembler Name Role Phone Enmanuel Gan MD Primary Care Provider [phone] Encounter Details Date Type Department Care Team (Late st Contact Info) Description 05/30/2020 Telephone 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 Discussed with the patient that we would need to have a copy of her most recent for dr saure to review prior to scheduling. Patient had a stress test at the end of 2018. Patient given fax number and will have her most recent dexa sent for KOURTNEY/Siva prior to scheduling. Patient aware that our first available is later next month and possiblyJan. ews NDER ROLL OPERATOR documented in this encounter Plan of Treatment Not on file documented as of this encounter Visit Diagnoses Not on filedocumented in this encounter Care Teams Cartridge Assembler Relationship Specialty Start Date End Date Enmanuel Gan MD [address] [place] [place] [address] PCP - General Internal Medicine 04/26/20 documented as of this encounter
--- OUTSIDE RECORDS SUMMARY | 2024-07-12 08:58 | XMS_ITS | Encounter Summary ---
Author Organization [facility] Address [address] [place] [address] Phone Care Team Providers Care Wood Drilling Machine Operator Name Role Phone Enmanuel Gan MD Primary Care Provider [phone] Reason for Referral * Diagnostic Imaging (Routine) - Closed Specialty Diagnoses / Procedures Referred By Contac t Referred To Contact Diagnoses Spinal deformity Procedures XR Scoliosis AP LAT Kyler Hunt MD [address] [facility] [place] [address] Phone: tel: fax: [facility] Referral ID Status Reason Start Date Expiration Date Visits Re quested Visits Authorized [id number] Closed 04/25/2020 05/25/2021 1 1 Encounter Details Date Type Department Care Team (Late st Contact Info) Description 04/26/2020 9:15 AM CDT Office Visit [facility] Orthopaedic Surgery [address] [place] [address] [facility] 6th [place] [address] [place] [address] Kyler Hunt MD [address] [facility] [address] [place] [address] Spinal deformity (Primary Dx); History of spinal fusion for scoliosis; Late effects of spine fusion; DDD (degenerative disc disease), lumbar; Chronic midline low back pain with bilateral sciatica Social History Tobacco Use Types Packs/Day Years Used Date Smoking Tobacco: Never Smokeless Tobacco: Never Alcohol Use Standard Drinks/Week Comments Yes 0 (1 standard drink = 0.6 oz pur e alcohol) Comments Unknown Sex and Gender Information Value Date Recorded Sex Assigned at Not on file 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 Gender Identity Not on file Sexual Orientation Lesbian 05/24/2019 9: 06 AM CDT documented as of this encounter Last Filed Vital Signs Vital Sign Reading Time Taken Comments Blood Pressure - - Pulse - - Temperature - - Respiratory Rate - - Oxygen Saturation - - Inhaled Oxygen Concentration - - Weight 76.2 kg (168 lb) 04/26/2020 9:34 AM CDT Height 162.6 cm (5' 4 ) 04/26/2020 9:34 AM CDT Body Mass Index 28.84 04/26/2020 9:34 AM CDT documented in this encounter Progress Notes * Kyler Hunt MD - 04/26/2020 9:15 AM CDT Macie Briseno 1945 04/26/2020 Rg Read MD ESTABLISHED PATIENT VISIT INTERIM HISTORY: So this patient is now 74 years old she is here today with her female partner she lives in [facility] I saw her this time last year and we recommended more surgery on her I think back then she had had fusion and decompression L3 to the sacrum by Dr. 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 niles cobb that is [facility] OT at [facility] and she now has pedicle screw implants L2-L4 she says that surgery is not helped herand says she has a lot of back pain and leg pain now that she does not like see her interim questionnaire she does have osteoarthritis she denies cancer strokes heart attack seizures or diabetes she has high cholesterol she has Meniere's disease and some loss of hearing she has had hip replacementson both sides by Dr. An here and spine surgery by Dr. monica cobb at [facility] 2016 she says she has now decided that she does not trust Dr. niles cobb and wants to be followed here she takes medicine for depression and man years and cholesterol and anxiety she is allergic to sulfa gabapentin and surgical tape she is not allergic to metal allergies she is retired lives with her female partner that is with her today she does not smoke she drinks alcohol she uses the see BD. For pain Past Medical History: Diagnosis Date ??? Auditory vertigo Meniere's disease Past Surgical History: Procedure Laterality Date ??? BACK SURGERY lower back ??? CHOLECYSTECTOMY Cholecystectomy ??? OTHER SURGICAL HISTORY 1999 Sectioning of left vesibular nerve (Not in a hospital admission) Allergies Allergen Reactions ??? Adhesive Rash and Blisters Surgical tape ??? Sulfa (Sulfonamide Antibiotics) ??? Gabapentin Other (See comments) Retain water Social History Tobacco Use ??? Smoking status: Never Smoker ??? Smokeless tobacco: Never Used Substance Use Topics ??? Alcohol use: Yes Family History Problem Relation Age of Onset [...] Neg Hx ??? Sudden Cardiac Neg Hx Current Outpatient Medications: ??? ALPRAZolam (XANAX) 0.25 mg tablet, Take 2 tablets (0.5 mg total) by mouth 2 (two) times a day as needed (dizziness), Disp: 60 tablet, Rfl: 1 ??? atorvastatin (LIPITOR) 20 mg tablet, 20 mg daily , Disp: , Rfl: ??? b complex vitamins tablet, take 1 Tablet by Oral route every day, Disp: 0, Rfl: 0 ??? cetirizine (ZyrTEC) 10 mg capsule, 10 mg daily , Disp: , Rfl: ??? cholecalciferol (VITAMIN D3) 5,000 unit tablet, take 1 Tablet by Oral route once, Disp: 0, Rfl:0 ??? coenzyme Q10 (CO Q-10) 100 mg capsule, take 1 Capsule by Oral route once, Disp: 0, Rfl: 0 ??? cyclobenzaprine (FLEXERIL) 10 mg tablet, TAKE ONE TABLET BY MOUTH NIGHTLY BEFORE BEDTIME, Disp:, Rfl: ??? diltiazem (TIAZAC) 180 mg 24 hr capsule, take 1 capsule (180MG) by oral route every day, Disp: 90, Rfl: 3 ??? DULoxetine DR (CYMBALTA) 30 mg capsule, , Disp: , Rfl: ??? fluticasone (FLONASE) 50 mcg/actuation nasal spray, inhale 1 spray (50MCG) by intranasal route every day in each nostril, Disp: , Rfl: 0 ??? ibuprofen (ADVIL,MOTRIN) 800 mg tablet, Take by mouth every 6 (six) hours as needed, Disp: , Rfl: ??? montelukast (SINGULAIR) 10 mg tablet, Take 10 mg by mouth daily, Disp: , Rfl: ??? PARoxetine (PAXIL) 20 mg tablet, 1/2 tab daily in the AM for 10 days, then 1 tab daily in the AM., Disp: , Rfl: ??? triamterene-hydroCHLOROthiazide 37.5-25 mg per capsule, TAKE ONE CAPSULE BY MOUTH ONCE DAILY, Disp: 90 capsule, Rfl: 3 REVIEW OF SYSTEMS: Negative for current GI cardiovascular cardiopulmonary her mental health issues her Oswestry is a 40 she says her back pain is a 3 in her leg pain is a 1 she has lots of below areas that she says bother her her knees bother her right buttock bothers her spine muscles bother her on both sides she says that she thinks at least some of the pathology is her sacroiliac joint on the right side her back pain leg pain numbers are low numbers but she says that is at rest and says if she walks and does a lot of things than her back pain leg pain numbers are 6 or 7 PHYSICAL EXAMINATION: General: She looks her stated age 65 in 168 lb pretty much same height weight as she was a year ago Musculoskeletal Spine: Overall coronal sagittal balance pretty good in her walking is pretty good she does not limp HEENT: No facial dysgenesis no masses Pulmonary: When over the patient with Chen in her female partner we had her walk a fair bit and she did fine with that she did not get out of breath or short of breath Abdominal: Nontender no masses Cardiovascular: Good temperature turgor of lower extremities no evidence of any arterial or venous pathologies Neurologic: Motors in her lower extremities seem good maybe on stand she had a little trouble with her anterior tib on the left side but on static exam quadriceps anterior tib gastrocsoleus seem pretty good no clonus no long track signs negative straight leg raise Musculoskeletal, Non- Spine: Reasonable range of motion of shoulders hips and knees Skin: Her posterior spine wounds are all well healed no blister no hairy patch no sinus implants are not prominent Mental Health: Affect behavior understanding good REVIEW OF X-RAY/STUDIES: We looked at the CT scan study that she had done over a year ago and this CT scan study showed solid fusion at 4 5 and 5 1 and 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 cage bow eos films show she now has pedicle screw implants L2-L3 L4 and no pedicle screws in 5 for the sacrum she clearly has a solid fusion for the sacrum she mammary not have any fusion at 2 3 in 3 4 and then she has just mild disc degeneration in her upper lumbar spine otherwise her coronal and sagittal balance is good in fine and not terribly different the surgeon that did 3 surgeries on her her is see HEATH IMPRESSION/DIAGNOSES: She said she had a recent MRI 2 or 3 months ago but she forgot to bring it lydiae suggested that she provided us with that MRI we suggested that we might also want to get a new CT scan on her so we can compare apples to apples TREATMENT PLAN: We are going to get coned-down AP lateral x-rays of her lumbar spine today to see alittle better the extent of her laminectomies and if she seems to be laying down any fusion or not otherwise we also suggested working within having at least 3 visits either [id number] or zoom withthe spine physical therapists right Guerrero Parker or Robson try to put more muscle on her posterior spine improve her aerobic conditioning is get her muscles condition to little bit better and maybe she will feel good enough with all that that she does not need more surgery explained if she is just not healing or fusions it could be that she would need to have a posterior procedure that might involve is Lyla is doing a T11 to the sacrum and pelvis procedure with pedicle screw implants somewhat longer than what is in now and using a substantial amount of BMP to get the levels solid I havea suspicion that were going to see that to 3 and 3 4 headed to nonunion and they are not going to fuse and get solid so on the 1 hand more surgery might be indicated but she has had a lot of surgeries already least 3 surgeries on her spine so would be good if she just got better with the physical therapy as well TIME SPENT: 40-45 minutes I think patient and her partner were happy with exam and interview ADDENDUM: I have thoroughly reviewed Epic and the current questionnaire on the patient. Over 50% ofthe time was my counseling of the patient and the person who was with the patient. So she got the supine AP lateral films and we can see her spine a lot better there the maybe a little bit of lucencyaround the pedicle screws at L2 I do see some bone in the disc space at 2 3 and 3 for the disc above with her supine looks pretty good getting the supine AP and lateral films are helpful otherwise her SI joints look pretty good to be on both sides she said she thought her problem I have been her SIjoint so we need keep that in mind but she has got a lot of pain and a lot of places the recumbent AP and lateral films do not look real bad she needs to get a new CT scan come back with the MRI see us again in 48 weeks just remember that today she had eos films and also supine AP lateral we can see good detail on AP lateral she does have good transverse processes. Kyler Hunt MD documented in this encounter Plan of Treatment Not on file documented as of this encounter Results * XR Scoliosis AP LAT (04/26/2020 8:22 AM CDT) Anatomical Region Laterality Modality Spine N/A Computed Radiogr aphy 04/26/2020 8:26 AM CDT Impressions 04/26/2020 8:26 AM CDT 1. ??Unchanged instrumented posterior spinal fusion with posterior decompression from L2 through L4 and discectomy with interbody fusion from L2 through S1. Electronically signed by: Yemi Francis M.D. Narrative 04/26/2020 8:26 AM CDT EXAMINATION: Thoracolumbar spine scoliosis 2 or 3 views HISTORY: ??Lumbar spondylosis FINDINGS: Digitally acquired AP and lateral images from the skull through the feet including the entire spine are submitted for interpretation and compared to the prior examination on 05/26/2019. There is unchanged instrumented posterior spinal fusion with posterior decompression from L2 through L4 and anterior lumbar interbody fusion from L2 through S1. There is minimal anterior sagittal imbalance. There is no coronal imbalance or pelvic tilt. Mild dextrocurvature is present at the thoracolumbar junction. There are bilateral total hip arthroplasties and right upper quadrant clips. Procedure Note Yemi Francis MD - 04/26/2020 EXAMINATION: Thoracolumbar spine scoliosis 2 or 3 views HISTORY: Lumbar spondylosis FINDINGS: Digitally acquired AP and lateral images from the skull through the feet including the entire spine are submitted for interpretation and compared to the prior examination on 05/26/2019. There is unchanged instrumented posterior spinal fusion with posterior decompression from L2 through L4 and anterior lumbar interbody fusion from L2 through S1. There is minimal anterior sagittal imbalance. There is no coronal imbalance or pelvic tilt. Mild dextrocurvature is present at the thoracolumbar junction. There are bilateral total hip arthroplasties and right upper quadrant clips. IMPRESSION: 1. Unchanged instrumented posterior spinal fusion with posterior decompression from L2 through L4 and discectomy with interbody fusion from L2 through S1. Electronically signed by: Yemi Francis M.D. Kyler Hunt MD IMG XR PROCEDURES Final Res ult documented in this encounter Visit Diagnoses Diagnosis Spinal deformity- Primary History of spinal fusion for scoliosis Late effects of spine fusion DDD (degenerative disc disease), lumbar Degeneration of lumbar or lumbosacral intervertebral disc Chronic midline low back pain with bilateral sciatica Spinal deformity documented in this encounter Care Teams Wood Drilling Machine Operator Relationship Specialty Start Date End Date Enmanuel Gan MD [address] [facility] [address] [facility] [address] [place] [address] PCP - General Internal Medicine 04/26/20 documented as of this encounter
--- OUTSIDE RECORDS SUMMARY | 2024-07-12 08:58 | XMS_ITS | Encounter Summary ---
Author Organization [facility] Address [address] [place] [address] Phone Care Team Providers Care Metal Numerical Tool Programmer Name Role Phone Enmanuel Gan MD Primary Care Provider [phone] Encounter Details Date Type Department Care Team (Late st Contact Info) Description 05/29/2020 Telephone [facility] Otolaryngology [address] [facility] 11th [place] [address] [place] [address] Marissa Sanchez BS Social History Tobacco Use Types Packs/Day Years Used Date Smoking Tobacco: Never Smokeless Tobacco: Never Alcohol Use Standard Drinks/Week Comments Yes 0 (1 standard drink = 0.6 oz pur e alcohol) Comments Unknown Sex and Gender Information Value Date Recorded Sex Assigned at Not on file 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 She was provided the contact information for Gianna Brar. Patient also reported she recently learned she is having some issues with her back and may need to have back surgery. She is uncertain how the timing of this may affect the cochlear implant surgery and programming schedule and if we had a recommendation for which she should pursue first. Recommended she contact Dr. Toth and Dr. Hunt for their recommendations. ER CASH GRAIN documented in this encounter Plan of Treatment Not on file documented as of this encounter Visit Diagnoses Not on filedocumented in this encounter Care Teams Metal Numerical Tool Programmer Relationship Specialty Start Date End Date Enmanuel Gan MD [address] [facility] [address] [place] [address] PCP - General Internal Medicine 04/26/20 documented as of this encounter
--- OUTSIDE RECORDS SUMMARY | 2024-07-12 08:58 | XMS_ITS | Encounter Summary ---
Author Organization [facility] Address [address] [place] [address] Care Team Providers Care Ceramic Tile Setter Name Role Phone Enmanuel Gan MD Primary Care Provider [phone] Reason for Referral * Diagnostic Imaging (Routine) - Closed Specialty Diagnoses / Procedures Referred By Contac t Referred To Contact Radiology Diagnoses Spinal deformity Procedures CT Thoracic and Lumbar Spine WO Contrast Kyler Hunt MD [address] [employer] [address] [place] [address] Phone: tel: fax: [address] [phone] Referral ID Status Reason Start Date Expiration Date Visits Re quested Visits Authorized [id number] Closed 04/27/2020 05/27/2021 1 1 Reason for Visit * Diagnostic Imaging (Routine) - Closed Specialty Diagnoses / Procedures Referred By Contac t Referred To Contact Radiology Diagnoses Spinal deformity Procedures CT Thoracic and Lumbar Spine WO Contrast Kyler Hunt MD [address] [employer] [address] [place] [address] Phone: tel: fax: [address] [phone] Referral ID Status Reason Start Date Expiration Date Visits Re quested Visits Authorized [id number] Closed 04/27/2020 05/27/2021 1 1 Encounter Details Date Type Department Care Team (Latest Contact Info) Description 05/17/2020 1:10 PM CDT - 05/17/2020 11:59 PM CDT Hospital Encounter [facility] [address] [place] [address] Kyler Hunt MD [address] [facility] [address] [place] [address] Spinal deformity Discharge Disposition: Discharge to home or self care Social History Tobacco Use Types Packs/Day Years Used Date Smoking Tobacco: Never Smokeless Tobacco: Never Alcohol Use Standard Drinks/Week Comments Yes 0 (1 standard drink = 0.6 oz pur e alcohol) Comments Unknown Sex and Gender Information Value Date Recorded Sex Assigned at Not on file 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 There has been interval fusion of L2-L3 with evidence of fusion failure at this level. ??Persistent partial fusion at L3-L4 with increased bony bridging. Dictated by: Kale Scott M.D. The radiology attending physician has personally reviewed this study, and had reviewed and/or edited this written report and agrees with it. Electronically signed by: Nany Russo M.D. Narrative 05/17/2020 3:52 PM CDT EXAMINATION: CT of the thoracic spine without contrast CT of the lumbar spine without contrast HISTORY: 74-year-old female with degenerative disc disease. TECHNIQUE: CT of the thoracic and lumbar spine was performed according to standard protocols without intravenous contrast. COMPARISON: 01/25/2019 FINDINGS: THORACIC: There are 12 rib-bearing thoracic vertebrae. The alignment of the thoracolumbar spine is normal. There is no acute fracture. There is multilevel degenerative disc disease, with superior and inferior endplate changes and osteophytes, predominantly involving the lower thoracic spine starting at T7 with calcific changes in the intervertebral disc spaces, notably at T6-T7, T7-T8. Intervertebral disc heights are all narrowed throughout the thoracic spine. There is no soft tissue abnormality. There is calcific atherosclerotic disease within the thoracic and abdominal aorta and bilateral iliac arteries. LUMBAR: Since comparison CT, there is been interval removal of posterior instrumentation at L5, and additional anterior interbody and posterior instrumented fusion of L2-L3. ??Screw tracks are seen at L5 and S1 from previous posterior instrumented fusion. ??As currently constructed, there is instrumented posterior spinal fusion with posterior decompression and bilateral pedicle screws from L2 through L4 and anterior lumbar interbody fusion from L2 through S1. ??The spinal canal and neural foramina are not compressed at the instrumented fusion sites due to laminectomies of L2-L5 and partial bilateral facetectomies. ??There is slight retrolisthesis of L1 on L2. Solid bony bridging is noted at L4-L5 and L5-S1. At L2-L3 there is no bony bridging. ??There is lucency surrounding the interbody fusion device, and around the L2 screws bilaterally suggestive of fusion failure. ??There is subsiding of L2 and L3 at this level. ??There is a small fracture involving the posterior osteophyte on the left at L2-L3. ??At L3-L4, there is partial fusion posteriorly, which has progressed since prior CT, with no bony bridging seen anteriorly and cystic lucency between the anterior interbody fusion device and L4. There is no lucency around the L4 screws. Right iliac crest bone graft donor site is visualized. Procedure Note VoNany MD - 05/17/2020 EXAMINATION: CT of the thoracic spine without contrast CT of the lumbar spine without contrast HISTORY: 74-year-old female with degenerative disc disease. TECHNIQUE: CT of the thoracic and lumbar spine was performed according to standard protocols without intravenous contrast. COMPARISON: 01/25/2019 FINDINGS: THORACIC: There are 12 rib-bearing thoracic vertebrae. The alignment of the thoracolumbar spine is normal. There is no acute fracture. There is multilevel degenerative disc disease, with superior and inferior endplate changes and osteophytes, predominantly involving the lower thoracic spine starting at T7 with calcific changes in the intervertebral disc spaces, notably at T6-T7, T7-T8. Intervertebral disc heights are all narrowed throughout the thoracic spine. There is no soft tissue abnormality. There is calcific atherosclerotic disease within the thoracic and abdominal aorta and bilateral iliac arteries. LUMBAR: Since comparison CT, there is been interval removal of posterior instrumentation at L5, and additional anterior interbody and posterior instrumented fusion of L2-L3. Screw tracks are seen at L5 and S1 from previous posterior instrumented fusion. As currently constructed, there is instrumented posterior spinal fusion with posterior decompression and bilateral pedicle screws from L2 through L4 and anterior lumbar interbody fusion from L2 through S1. The spinal canal and neural foramina are not compressed at the instrumented fusion sites due to laminectomies of L2-L5 and partial bilateral facetectomies. There is slight retrolisthesis of L1 on L2. Solid bony bridging is noted at L4-L5 and L5-S1. At L2-L3 there is no bony bridging. There is lucency surrounding the interbody fusion device, and around the L2 screws bilaterally suggestive of fusion failure. There is subsiding of L2 and L3 at this level. There is a small fracture involving the posterior osteophyte on the left at L2-L3. At L3-L4, there is partial fusion posteriorly, which has progressed since prior CT, with no bony bridging seen anteriorly and cystic lucency between the anterior interbody fusion device and L4. There is no lucency around the L4 screws. Right iliac crest bone graft donor site is visualized. IMPRESSION: Anterior and posterior spinal fusion from L2 through S1. There has been interval fusion of L2-L3 with evidence of fusion failure at this level. Persistent partial fusion at L3-L4 with increased bony bridging. Dictated by: Kale Scott M.D. The radiology attending physician has personally reviewed this study, and had reviewed and/or edited this written report and agrees with it. Electronically signed by: Nany Russo M.D. us Kyler Hunt MD IMG CT PROCEDURES Final Res ult documented in this encounter Visit Diagnoses Diagnosis Spinal deformity documented in this encounter Care Teams Ceramic Tile Setter Relationship Specialty Start Date End Date Enmanuel Gan MD [address] [facility] [address] [place] [address] PCP - General Internal Medicine 04/26/20 documented as of this encounter
--- OUTSIDE RECORDS SUMMARY | 2024-07-12 08:58 | XMS_ITS | Encounter Summary ---
Author Organization [facility] Address [address] [place] [address] Phone Care Team Providers Care Sealer Sander Name Role Phone Enmanuel Gan MD Primary Care Provider [phone] Reason for Referral * Diagnostic Imaging (Routine) - Closed Specialty Diagnoses / Procedures Referred By Contac t Referred To Contact Radiology Diagnoses Spinal deformity Procedures CT Thoracic and Lumbar Spine WO Contrast Kyler Hunt MD [address] [facility] [place] [address] Phone: tel: fax: [address] [address] Referral ID Status Reason Start Date Expiration Date Visits Re quested Visits Authorized [id number] Closed 04/27/2020 05/27/2021 1 1 Encounter Details Date Type Department Care Team (Late st Contact Info) Description 04/27/2020 Orders Only [facility] Orthopaedic Surgery [address] [facility] Medicine 6th [place] [address] [place] [id number] Kyler Hunt MD [address] [facility] [address] Spinal deformity (Primary Dx) Social History Tobacco Use Types Packs/Day Years Used Date Smoking Tobacco: Never Smokeless Tobacco: Never Alcohol Use Standard Drinks/Week Comments Yes 0 (1 standard drink = 0.6 oz pur e alcohol) Comments Unknown Sex and Gender Information Value Date Recorded Sex Assigned at Not on file Legal Sex Female 9:09 PM 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 Electronically signed by: Nany Russo M.D. Kyler Hunt MD IMG CT PROCEDURES Final Res ult documented in this encounter Visit Diagnoses Diagnosis Spinal deformity- Primary Spinal deformity documented in this encounter Care Teams Sealer Sander Relationship Specialty Start Date End Date Enmanuel Gan MD [address] [facility] [address] [facility] [address] [place] [address] PCP - General Internal Medicine 04/26/20 documented as of this encounter
--- OUTSIDE RECORDS SUMMARY | 2024-07-12 08:58 | XMS_ITS | Encounter Summary ---
Author Organization [facility] Healthcare Address [address] [place] [address] Care Team Providers Care Cartoonist Special Effects Name Role Phone Enmanuel Gan MD Primary Care Provider [phone] Reason for Referral * Diagnostic Imaging (Routine) - Closed Specialty Diagnoses / Procedures Referred By Gigi orosco Referred To Contact Radiology Diagnoses Sensorineural hearing loss, bilateral Procedures CT Internal Auditory Canal Cochlear Implant WO Contrast Darshana Toth MD [address] [place] [address] Phone: tel: fax: [address] [address] Referral ID Status Reason Start Date Expiration Date Visits Re quested Visits Authorized [id number] Closed 04/30/2020 05/30/2021 1 1 Reason for Visit * Diagnostic Imaging (Routine) - Closed Specialty Diagnoses / Procedures Referred By Gigi t Referred To Contact Radiology Diagnoses Sensorineural hearing loss, bilateral Procedures CT Internal Auditory Canal Cochlear Implant WO Contrast Darshana Toth MD [address] [place] [address] Phone: tel: fax: [address] [address] Referral ID Status Reason Start Date Expiration Date Visits Re quested Visits Authorized [id number] Closed 04/30/2020 05/30/2021 1 1 Encounter Details Date Type Department Care Team (Latest Contact Info) Description 05/07/2020 11:33 AM CDT - 05/07/2020 11:59 PM CDT Hospital Encounter [facility] [address] [place] [address] Darshana Ttoh MD [address] [place] [address] Sensorineural hearing loss, bilateral Discharge Disposition: Discharge to home or self care Social History Tobacco Use Types Packs/Day Years Used Date Smoking Tobacco: Never Smokeless Tobacco: Never Alcohol Use Standard Drinks/Week Comments Yes 0 (1 standard drink = 0.6 oz pur e alcohol) Comments Unknown Sex and Gender Information Value Date Recorded Sex Assigned at Not on file Legal Sex Female 9:09 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 ??Otherwise, grossly normal CT examination of the temporal bones without imaging evidence to explain the patient's symptoms. Electronically signed by: JoseL Coleman M.D. Narrative 05/07/2020 12:26 PM CDT EXAMINATION: Computed tomography (CT) of the temporal bones without contrast HISTORY: Bilateral sensorineural hearing loss, cochlear implant candidate TECHNIQUE: CT of the temporal bones was performed according to standard protocol without intravenous contrast. COMPARISON: None available. FINDINGS: Postsurgical changes of prior left retrosigmoid craniotomy. The limited examination of the brain is normal. On the right, the squamosal portion of the temporal bone is normal. The pinna is normal. The external auditory canal, including cartilaginous and bony portions, is normal. There is no fluid or mass in the middle ear cavity. The middle ear ossicles are intact, and there are no erosions. The sinus tympani and pyramid are normal. The facial nerve, including labyrinthine, geniculate, horizontal, and descending segments, is normal. The bony labyrinth, including the cochlea, vestibule, and semicircular canals, is normal without evidence of dehiscence or congenital malformation. The bone is normal without evidence of otosclerosis. The internal auditory canal is normal. The vestibular aqueduct is normal. The cochlear aqueduct is normal. The mastoid air cells are well developed without evidence of fluid or fracture. On the left, the squamosal portion of the temporal bone is normal. The pinna is normal. The external auditory canal, including cartilaginous and bony portions, is normal. There is no fluid or mass in the middle ear cavity. The middle ear ossicles are intact, and there are no erosions. The sinus tympani and pyramid are normal. The facial nerve, including labyrinthine, geniculate, horizontal, and descending segments, is normal. The bony labyrinth, including the cochlea, vestibule, and semicircular canals, is normal without evidence of dehiscence or congenital malformation. The bone is normal without evidence of otosclerosis. The internal auditory canal is normal. The vestibular aqueduct is normal. The cochlear aqueduct is normal. The mastoid air cells are well developed without evidence of fluid or fracture. Procedure Note Jose L Coleman MD - 05/07/2020 EXAMINATION: Computed tomography (CT) of the temporal bones without contrast HISTORY: Bilateral sensorineural hearing loss, cochlear implant candidate TECHNIQUE: CT of the temporal bones was performed according to standard protocol without intravenous contrast. COMPARISON: None available. FINDINGS: Postsurgical changes of prior left retrosigmoid craniotomy. The limited examination of the brain is normal. On the right, the squamosal portion of the temporal bone is normal. The pinna is normal. The external auditory canal, including cartilaginous and bony portions, is normal. There is no fluid or mass in the middle ear cavity. The middle ear ossicles are intact, and there are no erosions. The sinus tympani and pyramid are normal. The facial nerve, including labyrinthine, geniculate, horizontal, and descending segments, is normal. The bony labyrinth, including the cochlea, vestibule, and semicircular canals, is normal without evidence of dehiscence or congenital malformation. The bone is normal without evidence of otosclerosis. The internal auditory canal is normal. The vestibular aqueduct is normal. The cochlear aqueduct is normal. The mastoid air cells are well developed without evidence of fluid or fracture. On the left, the squamosal portion of the temporal bone is normal. The pinna is normal. The external auditory canal, including cartilaginous and bony portions, is normal. There is no fluid or mass in the middle ear cavity. The middle ear ossicles are intact, and there are no erosions. The sinus tympani and pyramid are normal. The facial nerve, including labyrinthine, geniculate, horizontal, and descending segments, is normal. The bony labyrinth, including the cochlea, vestibule, and semicircular canals, is normal without evidence of dehiscence or congenital malformation. The bone is normal without evidence of otosclerosis. The internal auditory canal is normal. The vestibular aqueduct is normal. The cochlear aqueduct is normal. The mastoid air cells are well developed without evidence of fluid or fracture. IMPRESSION: Postsurgical changes of left retrosigmoid craniotomy. Otherwise, grossly normal CT examination of the temporal bones without imaging evidence to explain the patient's symptoms. Electronically signed by: Jose L Coleman M.D. Darshana Toth MD IM CT PROCEDURES Final Resul t documented in this encounter Visit Diagnoses Diagnosis Sensorineural hearing loss, bilateral documented in this encounter Care Teams Cartoonist Special Effects Relationship Specialty Start Date End Date Enmanuel Gan MD [address] [facility] [address] INTER[address] MEDICINE [place] [id number] PCP - General Internal Medicine 04/26/20 documented as of this encounter
--- OUTSIDE RECORDS SUMMARY | 2024-07-12 08:58 | XMS_ITS | Encounter Summary ---
Author Organization [facility] Address [address] [place] [address] Phone Care Team Providers Care Adjunct Mathematics Instructor Name Role Phone Rg Read MD Primary Care Provider [phone] Encounter Details Date Type Department Care Team (Late st Contact Info) Description 04/17/2020 Documentation [facility] Otolaryngology [address] [place] [address] [address] [place] [address] Gianna Brar RN Social History Tobacco Use Types Packs/Day Years Used Date Smoking Tobacco: Never Smokeless Tobacco: Never Alcohol Use Standard Drinks/Week Comments Yes 0 (1 standard drink = 0.6 oz pur e alcohol) Comments Unknown Sex and Gender Information Value Date Recorded Sex Assigned at Not on file Legal Sex Female 9:09 PM 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 Gender Identity Not on file Sexual Orientation Lesbian 05/24/2019 9: 06 AM CDT documented as of this encounter Progress Notes * Gianna Brar MA - 04/17/2020 6:08 PM CDT Submitted CI request to [facility] ref# [id number] [facility] [id number] documented in this encounter Plan of Treatment Not on file documented as of this encounter Visit Diagnoses Not on filedocumented in this encounter Care Teams Adjunct Mathematics Instructor Relationship Specialty Start Date End Date Rg Read MD PCP - General 06/21/13 04/25/20 documented as of this encounter
--- OUTSIDE RECORDS SUMMARY | 2024-07-12 08:58 | XMS_ITS | Encounter Summary ---
Author Organization [facility] Address [address] [place] [address] Phone Care Team Providers Care Furniture Sales Consultant Name Role Phone Rg Read MD Primary Care Provider [phone] Reason for Visit * Reason Comments Hearing Aid Check * ENT (Routine) - Closed Specialty Diagnoses / Procedures Referred By Contac t Referred To Contact Diagnoses Sensory hearing loss, bilateral Procedures Audiogram Juan Carlos Jackson MD Phone: tel: fax: [facility] (All Locations) Referral ID Status Reason Start Date Expiration Date Visits Re quested Visits Authorized [id number] Closed 08/29/2019 03/09/2021 6 6 Encounter Details Date Type Department Care Team (Latest Contact Info) Description 03/16/2020 2:45 PM CDT Procedure visit [facility] Otolaryngology [address] [facility] 11th [place] [address] [place] [address] Iwona Davis Au.D. 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 - 03/16/2020 2:45 PM CDT Procedures Digna Manuel PATIENT NAME: Macie Briseno : 1945 TYPE OF SERVICE: Hearing Aid Check DATE OF SERVICE: 03/16/2020 PATIENT REPORTS: Ms. Briseno reports her left pulmonary nurse practitioner is broken. TESTS PERFORMED: See: electroacoustic analysis ASSESSMENT: Ms. Briseno's right Widex Evoke 330 fusion and left Widex Dream 330 fusion hearing aids were cleanedand dehumidified. The microphone and pulmonary nurse practitioner ports were suctioned and the battery contacts were cleaned. The wax guards and the left P2L pulmonary nurse practitioner wire were replaced. Electroacoustic analysis performed (ANSI S3.22-2009) and matches baseline user settings (see below): Supervisor Computer Operations Settings HFA OSPL 90 MTG EIN Right CIC User 122.27 34.7 23.85 Left CIC User 113.87 36.8 20.35 Ms. Briseno was pleased to hear her hearing aids were working well. She will call to schedule her next appointment. PLAN/RECOMMENDATIONS: Return for hearing evaluation/hearing aid check Continue use of amplification Hearing assistive technology Hearing protection in noise documented in this encounter Plan of Treatment Not on file documented as of this encounter Visit Diagnoses Diagnosis Sensorineural hearing loss, asymmetrical- Primary documented in this encounter Care Teams Furniture Sales Consultant Relationship Specialty Start Date End Date Rg Read MD PCP - General 06/21/13 04/25/20 documented as of this encounter
--- OUTSIDE RECORDS SUMMARY | 2024-07-12 08:58 | XMS_ITS | Encounter Summary ---
Author Organization [facility] Healthcare Address [address] [place] [address] Care Team Providers Care Safety Instruction Police Officer Name Role Phone Enmanuel Gan MD Primary Care Provider [phone] Reason for Referral * Diagnostic Imaging (Routine) - Closed Specialty Diagnoses / Procedures Referred By Contac t Referred To Contact Diagnoses Spinal deformity Procedures XR Scoliosis AP LAT Kyler Hunt MD [address] [facility] [address] [place] [address] Phone: tel: fax: [facility] [place] [facility] Referral ID Status Reason Start Date Expiration Date Visits Re quested Visits Authorized [id number] Closed 04/25/2020 05/25/2021 1 1 Reason for Visit * Diagnostic Imaging (Routine) - Closed Specialty Diagnoses / Procedures Referred By Contwolfgang t Referred To Contact Diagnoses Spinal deformity Procedures XR Scoliosis AP LAT Kyler Hunt MD [address] [facility] [address] [place] [address] Phone: tel: fax: [facility] Referral ID Status Reason Start Date Expiration Date Visits Re quested Visits Authorized [id number] Closed 04/25/2020 05/25/2021 1 1 Encounter Details Date Type Department Care Team (Latest Contact Info) Description 04/26/2020 8:05 AM CDT - 04/26/2020 11:59 PM CDT Hospital Encounter [facility] [address] [place] [address] Kyler Hunt MD [address] [facility] [address] [place] [address] Spinal deformity Discharge Disposition: Discharge to home or self care Social History Tobacco Use Types Packs/Day Years Used Date Smoking Tobacco: Never Smokeless Tobacco: Never Alcohol Use Standard Drinks/Week Comments Yes 0 (1 standard drink = 0.6 oz pur e alcohol) Comments Unknown Sex and Gender Information Value Date Recorded Sex Assigned at Not on file 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 ??Unchanged instrumented posterior spinal fusion from L2 through L4, noninstrumented posterior spinal fusion from L4 through S1, discectomy with interbody fusion from L2 through S1 and posterior lumbar spine decompression. Electronically signed by: Yemi Francis M.D. Narrative 04/26/2020 10:47 AM CDT EXAMINATION: Lumbar spine 2 or 3 views HISTORY: ??Low back pain FINDINGS: 2 views of the lumbar spine are submitted for interpretation and compared to the prior examination on 04/26/2020. There is unchanged instrumented posterior spinal fusion from L2 through L4, noninstrumented posterior spinal fusion from L4 through S1, discectomy with interbody fusion from L2 through S1 and lumbar spine posterior decompression. There are bilateral total hip arthroplasties. Right upper quadrant clips are present. Procedure Note Yemi Francis MD - 04/26/2020 EXAMINATION: Lumbar spine 2 or 3 views HISTORY: Low back pain FINDINGS: 2 views of the lumbar spine are submitted for interpretation and compared to the prior examination on 04/26/2020. There is unchanged instrumented posterior spinal fusion from L2 through L4, noninstrumented posterior spinal fusion from L4 through S1, discectomy with interbody fusion from L2 through S1 and lumbar spine posterior decompression. There are bilateral total hip arthroplasties. Right upper quadrant clips are present. IMPRESSION: 1. Unchanged instrumented posterior spinal fusion from L2 through L4, noninstrumented posterior spinal fusion from L4 through S1, discectomy with interbody fusion from L2 through S1 and posterior lumbar spine decompression. Electronically signed by: Yemi Francis M.D. Kyler Hunt MD IMG XR PROCEDURES Final Res ult * XR Scoliosis AP LAT (04/26/2020 8:22 [...] deformity documented in this encounter Care Teams Safety Instruction Police Officer Relationship Specialty Start Date End Date Enmanuel Gan MD [address] [facility] [address] [place] [address] PCP - General Internal Medicine 04/26/20 documented as of this encounter
--- OUTSIDE RECORDS SUMMARY | 2024-07-12 08:58 | XMS_ITS | Encounter Summary ---
Author Organization [facility] Address [address] [place] [address] Phone Care Team Providers Care Postal Support Employee Name Role Phone Enmanuel Gan MD Primary Care Provider [phone] Reason for Visit * Reason Onset Date Comments Immunizations 06/01/2020 Encounter Details Date Type Department Care Team (Late st Contact Info) Description 06/01/2020 Documentation 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 Toth - I had the pneumonia PPSV23 vaccine in April [address] Rg Read (was previous PHP) My new PHP is Dr. Enmanuel Gan at [place], [place]. Thanks, Sharon URE DESIGNER documented in this encounter Plan of Treatment Not on file documented as of this encounter Visit Diagnoses Not on filedocumented in this encounter Care Teams Postal Support Employee Relationship Specialty Start Date End Date Enmanuel Gan MD [address] [place] [address] PCP - General Internal Medicine 04/26/20 documented as of this encounter
--- OUTSIDE RECORDS SUMMARY | 2024-07-12 08:58 | XMS_ITS | Encounter Summary ---
Author Organization [facility] Address [address] [place] [address] Phone Care Team Providers Care Assisted Living Coordinator Name Role Phone Enmanuel Gan MD Primary Care Provider [phone] Encounter Details Date Type Department Care Team (Late st Contact Info) Description 06/06/[address] [facility] Otolaryngology [address] [facility] 11th [place] [address] Zee Garcia Au.D. [address] [place] [address] Social History Tobacco Use Types Packs/Day Years Used Date Smoking Tobacco: Never Smokeless Tobacco: Never Alcohol Use Standard Drinks/Week Comments Yes 0 (1 standard drink = 0.6 oz pur e alcohol) Comments Unknown Sex and Gender Information Value Date Recorded Sex Assigned at Not on file Legal Sex Female 9:09 PM COOK HELPER FRUIT Gender Identity Not on file Sexual Orientation Lesbian 05/24/2019 9: 06 AM CDT documented as of this encounter Miscellaneous Notes * Telephone Encounter - Zee Garcia Au.D. - 06/06/2020 11:49 AM COOK HELPER FRUIT Spoke with Dr. Toth this morning. He is requesting CI632 as primary and CI612 as backup. Surgery olimpia and order form sent to the OR this date. OR Supply, please confirm receipt of CI olimpia and attached order Surgery Scheduled: DATE: 06/19/2020 TIME: 11:00 AM PATIENT: Macie Briseno : 47 SURGEON: Dr. Toth IMPLANT SYSTEM: Cochlear Nucleus with Slim Modiolar (CI632) with CI612 as back up EAR TO BE IMPLANTED: LEFT FUNDING: [employer] Aleks Chow/MA, CCC A/SKI MOLDER Fleet Sales Manager/Speech Pathologist [facility] Department Of Otolaryngology [address] [place] [address] [place] [address] (fax) HELPER FRUIT documented in this encounter Plan of Treatment Not on file documented as of this encounter Visit Diagnoses Not on filedocumented in this encounter Care Teams Assisted Living Coordinator Relationship Specialty Start Date End Date Enmanuel Gan MD [address] [facility] [address] [place] [address] PCP - General Internal Medicine 04/26/20 documented as of this encounter
--- OUTSIDE RECORDS SUMMARY | 2024-07-12 08:58 | XMS_ITS | Encounter Summary ---
Author Organization [facility] Address [address] [place] [address] Phone Care Team Providers Care Glove Sewer Name Role Phone Rg Read MD Primary Care Provider [phone] Reason for Referral * Audiology (Routine) - Closed Specialty Diagnoses / Procedures Referred By Contac t Referred To Contact Audiology Diagnoses Sensorineural hearing loss, bilateral Procedures Evaluation, cochlear implant programming and auditory rehabilitation per [facility] adult cochlear implant protocol Darshana Toth MD [address] [place] [address] Phone: tel: fax: [facility] Otolaryngology [facility] Medicine 11th [place] [address] [place] [address] Phone: tel: fax: Referral ID Status Reason Start Date Expiration Date Visits Re quested Visits Authorized [id number] Closed 04/13/2020 05/13/2021 1 1 Reason for Visit * ENT (Routine) - Closed Specialty Diagnoses / Procedures Referred By Contac t Referred To Contact Diagnoses Sensory hearing loss, bilateral Procedures Audiogram Juan Carlos Jackson MD Phone: tel: fax: [facility] (All Locations) Referral ID Status Reason Start Date Expiration Date Visits Re quested Visits Authorized [id number] Closed 08/29/2019 03/09/2021 6 6 Encounter Details Date Type Department Care Team (Latest Contact Info) Description 04/16/2020 3:00 PM CDT Procedure visit [facility] Otolaryngology [address] [facility] 11th [place] [address] [place] [address] Zee Garcia Au.D. 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 - 04/16/2020 3:00 PM CDT Procedures Diagnosis: Sensorineural hearing loss, bilateral Physician: Dr. Toth SERVICES PROVIDED: Evaluation of AR Status - Initial Evaluation for Cochlear Implant. Time: 3:15-4:15 PM Referred by: Darshana Toth M.D. 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 + earmold (L): Pyreg Dream 330 fusion, power motor home electrical foreman + earmold Number of years since worn hearing aid: Currently wears Number of years hearing loss has been severe/profound: (R): 2 years (L): 19 years Number of years since could understand well on phone: (R): Can use the right ear but prefers speakerphone, doesn't have hearing aid in (L): around 20 years ALDS used: Bluetooth neckloop she doesn't use too often, closed caption Occupation: Retired since 2006 Medical History: Dizziness: Yes - associated with Meniere's, not currently experiencing Vertigo: Yes - history of BPPV, not currently experiencing Balance problems: Yes - associated with Meniere's disease, not currently experiencing Tinnitus: Yes bilateral intermittent roaring tinnitus or sometimes like Middle ear infections: One in 1963 with a sinus infection Otosurgery: (L): vestibular nerve section Family history: No Noise exposure: NA Other health problems: Hip replacement, spinal fusion from L2 to S1, Meniere's symptoms increasing since trying to wean off antidepressants Evaluation: Aided soundfield thresholds and speech testing were completed to assess the patient's current speech understanding abilities and to determine candidacy for a cochlear implant. For the testing the patient wore her Widex hearing aids with encased earmolds. Sound field aided thresholds 250 227 289 7283 1500 2000 3000 4000 6000 Hz COUCH RE 46 36 28 30 28 30 42 38 56 dB HL COUCH LE 52 38 34 34 40 50 48 46 64 dB HL CNC Words @ 60 dB SPL: COUCH:RE List: 2 Word Total: 62% Phoneme Total: 85% COUCH:LE List: 3 Word Total: 34% Phoneme Total: 55% AzBio Sentences @ 60 dB SPL: COUCH:RE List: 3 Total: 74% COUCH:LE List: 18 Total: 23% COUCH: Binaural List: 10 Total: 77% Az Bio Sentences @ 60 dB SPL with 50 dB [place] Babble (+10 SNR): COUCH:RE List: 4 Total: 68% COUCH:LE List: 21 Total: 17% COUCH: Binaural List: 12 Total: 67% 125 Hz under earphones RIGHT 45 LEFT 75 Based on the patient's score on AzBio Sentences when presented at a +10 SNR, the patient meets current candidacy criteria for a cochlear implant in the left ear. A hearing aid provides little benefitto the left ear. The following were discussed with the patient: Results of testing were with discussed with the patient and Selina. Cochlear, Med El and AB java technical manager packets provide, updated device comparison sheet given Vaccinations - Patient had them at her pharmacy, will try to obtain records Expectations sheet: postlingual Post-op schedule and auditory rehabilitation with helper MRI considerations Recommended ear of implantation: Left Patient ear preference: Left RECOMMENDATIONS: Proceed with continued pre-operative counseling and testing pending insurance determination Proceed to CI surgery following second pre-op appointment documented in this encounter Plan of Treatment Scheduled Orders Name Type Priority Associated Diagnoses Orde r Schedule Evaluation, cochlear implant programming and auditory rehabilitation per [facility] adult cochlear implant protocol Audiology Routine Sensorineural hearing loss, bilateral 1000 Occurrences starting 04/13/2020 until 03/31/2116 documented as of this encounter Procedures Procedure Name Priority Date/Time Associated Diagnosis Comments AUDBASE RESULTS 04/16/2020 documented in this encounter Results * AUDBASE RESULTS (04/16/2020) Provider Scanning AUDIOLOGY SERVICES ORDERABLES Final Result documented in this encounter Visit Diagnoses Diagnosis Sensorineural hearing loss, bilateral- Primary documented in this encounter Care Teams Glove Sewer Relationship Specialty Start Date End Date Rg Read MD PCP - General 06/21/13 04/25/20 documented as of this encounter
--- OUTSIDE RECORDS SUMMARY | 2024-07-12 08:58 | XMS_ITS | Encounter Summary ---
Author Organization [facility] Address [address] [place] [address] Phone Care Team Providers Care Electronics Technician Name Role Phone Rg Read MD Primary Care Provider Reason for Referral * Consultation (Routine) - Closed Specialty Diagnoses / Procedures Referred By Gigi orosco Referred To Contact Otolaryngology Diagnoses Meniere's disease of both ears Rg Read MD Phone: tel: fax: [facility] (All Locations) Referral ID Status Reason Start Date Expiration Date V isits Requested Visits Authorized [id number] Closed Specialty Services Required 03/17/2020 04/16/2021 3 3 Question Answer Please select the performing region: [facility] (All Locations) [[id number]] # of visits: 1 Reason for Visit * Reason Comments Meniere's Disease former Dr Jackson pt here for followup. * Consultation (Routine) - Closed Specialty Diagnoses / Procedures Referred By Gigi orosco Referred To Contact Otolaryngology Diagnoses Meniere's disease of both ears Rg Read MD Phone: tel: fax: [facility] (All Locations) Referral ID Status Reason Start Date Expiration Date V isits Requested Visits Authorized [id number] Closed Specialty Services Required 03/17/2020 04/16/2021 3 3 Encounter Details Date Type Department Care Team (Late st Contact Info) Description 03/26/2020 3:20 PM CDT Office Visit [facility] Advanced Medicine ([facility]) - 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 Read. Chief Complaint: Chief Complaint Patient presents with ??? Meniere's Disease former Dr Jackson pt here for followup. Interval: The patient returns for follow-up evaluation. Overall she has done well since her prior evaluation.She is interested in considering CI evaluation given decreased benefit with hearing aid amplification. From previous: HPI: This is a 74 [...] Socioeconomic History ??? Marital status: Spouse name: None ??? Number of children: None ??? Years of education: None ??? Highest education level: None Occupational History ??? None Social Needs ??? Financial resource strain: None ??? Food insecurity Worry: None Inability: None ??? Transportation needs Medical: None Non-medical: None Tobacco Use ??? Smoking status: Never Smoker ??? Smokeless tobacco: Never Used Substance and Sexual Activity ??? Alcohol use: Yes ??? Drug use: No ??? Sexual activity: None Lifestyle ??? Physical activity Days per week: None Minutes per session: None ??? Stress: None Relationships ??? Social connections Talks on phone: None Gets together: None Attends confucianist service: None Active member of club or organization: None Attends meetings of clubs or organizations: None Relationship status: None ??? Intimate partner violence Fear of current or ex partner: None Emotionally abused: None Physically abused: None Forced sexual activity: None Other Topics Concern ??? None Social History Narrative General Social History Comments: [...] every day in each nostril 0 ??? montelukast (SINGULAIR) 10 mg tablet Take [...] intact and symmetric. Normal affect. GAIT: Normal. Cerebellar/Postural: Bhymuh-sskg-sekemb: Normal. Romberg: eyes open - normal. eyes closed - normal. Hallpike Maneuver: Hallpike Positions: No nystagmus to right or left. ASSESSMENT/PLAN 73-year-old female with history of bilateral Meniere's disease, BPPV, sensorineural hearing loss and depression. We again discussed the concern about bilateral Meniere's disease and the possibility of progressive hearing loss in the context of a very poor word understanding she has in her left ear.She will undergo a more detailed evaluation by our CI audiologists and I will see her back after this. Darshana Toth M.D. Otology and Neurotology Department of Otolaryngology [facility] in [place] [email or web address] Office: Clinic: documented in this encounter Plan of Treatment Scheduled Referrals Name Type Priority Associated Diagnoses Order Schedule Ambulatory referral to ENT Outpatient Referral Routine Meniere's disease of both ears Expected: 03/31/2020 (Approximate), Expires: 03/17/2021 documented as of this encounter Visit Diagnoses Diagnosis Meniere's disease of both ears- Primary Sensorineural hearing loss (SNHL) of both ears documented in this encounter Discontinued Medications Medication Sig Discontinue Reason Start Date End Da te busPIRone (BUSPAR) 10 mg tablet 10 mg daily Patient Discharge 02/12/2019 03/26/2020 documented as of this encounter Historical Medications * This list may reflect changes made after this encounter. cyclobenzaprine (FLEXERIL) 10 mg tabletIndication s:Muscle Spasm Take 10 mg by mouth nightly 03/12/2020 07/29/[address] (CYMBALTA) 30 mg capsuleIndicatio ns:Anxiety with Depression Take 3 capsules (90 mg total) by mouth every morning 12/21/2019 09/29/2023 added in this encounter Care Teams Electronics Technician Relationship Specialty Start Date End Date Rg Read MD PCP - General 06/21/13 04/25/20 documented as of this encounter
--- OUTSIDE RECORDS SUMMARY | 2024-07-12 08:58 | XMS_ITS | Encounter Summary ---
Author Organization [facility] Address [address] [place] [address] Phone Care Team Providers Care Corporate Tutor Name Role Phone Enmanuel Gan MD Primary Care Provider [phone] Reason for Referral * Diagnostic Imaging (Routine) - Closed Specialty Diagnoses / Procedures Referred By Contac t Referred To Contact Radiology Diagnoses Sensorineural hearing loss, bilateral Procedures CT Internal Auditory Canal Cochlear Implant WO Contrast Darshana Toth MD [address] [place] [address] Phone: tel: fax: [address] [address] Referral ID Status Reason Start Date Expiration Date Visits Re quested Visits Authorized [id number] Closed 04/30/2020 05/30/2021 1 1 Encounter Details Date Type Department Care Team (Late st Contact Info) Description 04/30/2020 Orders Only [facility] Otolaryngology [address] [facility] 11th [place] [address] [place] [address] Dalia Zacarias Sensorineural hearing loss, bilateral (Primary Dx) Social History Tobacco Use Types Packs/Day Years Used Date Smoking Tobacco: Never Smokeless Tobacco: Never Alcohol Use Standard Drinks/Week Comments Yes 0 (1 standard drink = 0.6 oz pur e alcohol) Comments Unknown Sex and Gender Information Value Date Recorded Sex Assigned at Not on file 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 Narrative 05/07/2020 12:26 PM CDT [...] Jose L Coleman M.D. Darshana Toth MD IMG CT PROCEDURES Final Resul t documented in this encounter Visit Diagnoses Diagnosis Sensorineural hearing loss, bilateral- Primary Sensorineural hearing loss, bilateral documented in this encounter Care Teams Corporate Tutor Relationship Specialty Start Date End Date Enmanuel Gan MD [address] [facility] [address] [place] [address] PCP - General Internal Medicine 04/26/20 documented as of this encounter
--- OUTSIDE RECORDS SUMMARY | 2024-07-12 08:58 | XMS_ITS | Encounter Summary ---
Author Organization [facility] Address [address] [place] [address] Phone Care Team Providers Care Architectural Manager Name Role Phone Enmanuel Gan MD Primary Care Provider [phone] Reason for Visit * Reason Onset Date Comments PRE SCREEN 05/28/2020 Encounter Details Date Type Department Care Team (Late st Contact Info) Description 05/28/2020 Telephone [facility] Physical Therapy [address] [facility] 1st Floor [address] [place] [address] Arabella Guerrero CNA PRE SCREEN Social History Tobacco Use Types Packs/Day Years Used Date Smoking Tobacco: Never Smokeless Tobacco: Never Alcohol Use Standard Drinks/Week Comments Yes 0 (1 standard drink = 0.6 oz pur e alcohol) Comments Unknown Sex and Gender Information Value Date Recorded Sex Assigned at Not on file Legal Sex Female 9:09 PM RN ANTE PARTUM Gender Identity Not on file Sexual Orientation Lesbian 05/24/2019 9: 06 AM CDT documented as of this encounter Miscellaneous Notes * Telephone Encounter - Arabella Guerrero CNA - 05/28/2020 10:45 AM CST PT SCREENED FOR COVID-KS ANTE PARTUM documented in this encounter Plan of Treatment Not on file documented as of this encounter Visit Diagnoses Not on filedocumented in this encounter Care Teams Architectural Manager Relationship Specialty Start Date End Date Enmanuel Gan MD [address] [facility] [address] [place] [id number] PCP - General Internal Medicine 04/26/20 documented as of this encounter
--- OUTSIDE RECORDS SUMMARY | 2024-07-12 08:58 | XMS_ITS | Encounter Summary ---
Author Organization [facility] Address [address] [place] [address] Phone Care Team Providers Care Assistant Counsel Name Role Phone Enmanuel Gan MD Primary Care Provider [phone] Reason for Referral * Diagnostic Imaging (Routine) - Closed Specialty Diagnoses / Procedures Referred By Contac t Referred To Contact Radiology Diagnoses Sensorineural hearing loss, bilateral Procedures CT Internal Auditory Canal Cochlear Implant WO Contrast Darshana Toth MD [address] [place] [address] Phone: tel: fax: [address] [address] Referral ID Status Reason Start Date Expiration Date Visits Re quested Visits Authorized [id number] Closed 05/31/2020 06/30/2021 1 1 ITY CONTROL PUNCHER Encounter Details Date Type Department Care Team (Late st Contact Info) Description 05/31/2020 Orders Only [facility] Otolaryngology [address] [facility] 11th [place] [address] [place] [address] Dalia Zacarias Sensorineural hearing loss, bilateral (Primary Dx) Social History Tobacco Use Types Packs/Day Years Used Date Smoking Tobacco: Never Smokeless Tobacco: Never Alcohol Use Standard Drinks/Week Comments Yes 0 (1 standard drink = 0.6 oz pur e alcohol) Comments Unknown Sex and Gender Information Value Date Recorded Sex Assigned at Not on file Legal Sex Female 9:09 PM DENSITY CONTROL PUNCHER Gender Identity Not on file Sexual Orientation Lesbian 05/24/2019 9: 06 AM CDT documented as of this encounter Plan of Treatment Not on file documented as of this encounter Results * CT Internal Auditory Canal Cochlear Implant WO Contrast (07/09/2020 9:10 AM DENSITY CONTROL PUNCHER) Anatomical Region Laterality Modality Head and Neck N/A Computed Tomogra phy 07/09/2020 11:3 9 AM DENSITY CONTROL PUNCHER Impressions 07/09/2020 12:02 PM DENSITY CONTROL PUNCHER 1. ??Interval mastoidectomy and placement of left [...] Nany Russo M.D. Narrative 07/09/2020 12:02 PM DENSITY CONTROL PUNCHER EXAMINATION: CT of the temporal bones without [...] evidence of fluid or fracture. Procedure Note VoNany MD - 07/09/2020 EXAMINATION: CT of the [...] bilateral documented in this encounter Care Teams Assistant Counsel Relationship Specialty Start Date End Date Enmanuel Gan MD [address] [facility] [address] [place] [address] PCP - General Internal Medicine 04/26/20 documented as of this encounter
--- OUTSIDE RECORDS SUMMARY | 2024-07-12 08:58 | XMS_ITS | Encounter Summary ---
Author Organization [facility] Address [address] [place] [address] Phone Care Team Providers Care Computer Forensics Technician Name Role Phone Enmanuel Gan MD Primary Care Provider [phone] Encounter Details Date Type Department Care Team (Late st Contact Info) Description 05/06/2020 Telephone [facility] Otolaryngology [address] [facility] Advanced Medicine 11th [place] [address] [place] [address] Zee Garcia Au.D. 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 - 05/06/2020 4:53 PM CDT On 05/01/2020 Patient called and left a message for me regarding Cochlear Implantation. Call was returned 05/02/2020 and I spoke with Nadia via speakerphone. Answered some questions regarding candidacy and benefit. Patient would like to talk/email with a CIrecipient. Patient had also asked how long the cochlear implant authorization was was valid for. Patient was emailed contact information for consumer specialists for all three manufacturers. [employer] informed me the authorization was valid from 04/30/20- 07/29/20, this information was also emailed to the patient. documented in this encounter Plan of Treatment Not on file documented as of this encounter Visit Diagnoses Not on filedocumented in this encounter Care Teams Computer Forensics Technician Relationship Specialty Start Date End Date Enmanuel Gan MD [address] [facility] [address] [place] [address] PCP - General Internal Medicine 04/26/20 documented as of this encounter
--- OUTSIDE RECORDS SUMMARY | 2024-07-12 08:58 | XMS_ITS | Encounter Summary ---
Author Organization [facility] Address [address] [place] [address] Phone Care Team Providers Care Parachute Crown Sewer Name Role Phone Enmanuel Gan MD Primary Care Provider [phone] Reason for Referral * Diagnostic Imaging (Routine) - Closed Specialty Diagnoses / Procedures Referred By Contac t Referred To Contact Radiology Diagnoses DDD (degenerative disc disease), lumbar Procedures MRI Lumbar Spine WO Contrast Kyler Hunt MD [address] [place] [address] Phone: tel: fax: [address] [address] Referral ID Status Reason Start Date Expiration Date Visits Re quested Visits Authorized [id number] Closed 05/07/2020 06/06/2021 1 1 Encounter Details Date Type Department Care Team (Late st Contact Info) Description 05/07/2020 Orders Only [facility] Orthopaedic Surgery [address] [facility] Advanced Medicine 6th [place] [address] [place] [address] Kyler Hunt MD [address] [facility] [place] [address] DDD (degenerative disc disease), lumbar (Primary Dx) Social History Tobacco Use Types Packs/Day Years Used Date Smoking Tobacco: Never Smokeless Tobacco: Never Alcohol Use Standard Drinks/Week Comments Yes 0 (1 standard drink = 0.6 oz pur e alcohol) Comments Unknown Sex and Gender Information Value Date Recorded Sex Assigned at Not on file Legal Sex Female 9:09 PM CLINICAL REHABILITATION LIAISON Gender Identity Not on file Sexual Orientation [...] Eugenio Obregon M.D, PHD Kyler Hunt MD IM MRI PROCEDURES Final Re sult documented in this encounter Visit Diagnoses Diagnosis DDD (degenerative disc disease), lumbar- Primary Degeneration of lumbar or lumbosacral intervertebral disc DDD (degenerative disc disease), lumbar Degeneration of lumbar or lumbosacral intervertebral disc documented in this encounter Care Teams Parachute Crown Sewer Relationship Specialty Start Date End Date Enmanuel Gan MD [address] [facility] [address] [place] [address] PCP - General Internal Medicine 04/26/20 documented as of this encounter
--- OUTSIDE RECORDS SUMMARY | 2024-07-12 08:58 | XMS_ITS | Encounter Summary ---
Author Organization [facility] Address [address] [place] [address] Phone Care Team Providers Care Histology Technologist Name Role Phone Enmanuel Gan MD Primary Care Provider [phone] Reason for Referral * Consultation (Routine) - Closed Specialty Diagnoses / Procedures Referred By Contwolfgang t Referred To Contact Physical Therapy Diagnoses Spinal deformity Kyler Hunt MD [address] [facility] [address] [place] [address] Phone: tel: fax: [facility] (All Locations) Referral ID Status Reason Start Date Expiration Date V isits Requested Visits Authorized [id number] Closed Specialty Services Required 04/26/2020 04/26/2021 12 12 Question Answer PTRFR PT Evaluate and Treat Reason for Visit low back pain Therapy options discussed with patient? Yes Location provided for therapy services is: Patient requested/Patient preferred Please select the performing region: [facility] (All Locations) [[id number]] # of visits: 12 Comments Low back pain, prior PSF Encounter Details Date Type Department Care Team (Late st Contact Info) Description 04/26/2020 Orders Only [facility] Orthopaedic Surgery [address] [facility] 6th [place] [address] [place] [address] Kyler Hunt MD [address] [facility] [address] [place] [address] Spinal deformity (Primary Dx) Social History Tobacco Use Types Packs/Day Years Used Date Smoking Tobacco: Never Smokeless Tobacco: Never Alcohol Use Standard Drinks/Week Comments Yes 0 (1 standard drink = 0.6 oz pur e alcohol) Comments Unknown Sex and Gender Information Value Date Recorded Sex Assigned at Not on file Legal Sex Female 9:09 PM CLOTHES SHAKER Gender Identity Not on file Sexual Orientation Lesbian 05/24/2019 9: 06 AM CDT documented as of this encounter Plan of Treatment Scheduled Referrals Name Type Priority Associated Diagnoses Order Schedule Ambulatory referral order to Physical Therapy - Outpatient Referral Routine Spinal deformity Expected: 05/10/2020 (Approximate), Expires: 04/26/2021 documented as of this encounter Visit Diagnoses Diagnosis Spinal deformity- Primary documented in this encounter Care Teams Histology Technologist Relationship Specialty Start Date End Date Enmanuel Gan MD [address] [facility] [address] [place] [address] PCP - General Internal Medicine 04/26/20 documented as of this encounter
--- OUTSIDE RECORDS SUMMARY | 2024-07-12 08:59 | XMS_ITS | Encounter Summary ---
Author Organization [facility] Care Team Providers Care Streetcar Starter Name Role Phone Rg Read MD Primary Care Provider [phone] Encounter Details Date Type Department Care Team (Latest Contact Info) Description 09/29/2019 Travel Social History Tobacco Use Types Packs/Day Years Used Date Smoking Tobacco: Never Smokeless Tobacco: Never Alcohol Use Standard Drinks/Week Comments Yes 0 (1 standard drink = 0.6 oz pur e alcohol) Comments Unknown Sex and Gender Information Value Date Recorded Sex Assigned at Not on file Legal Sex Female 9:09 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
--- OUTSIDE RECORDS SUMMARY | 2024-07-12 08:59 | XMS_ITS | Encounter Summary ---
Author Organization [facility] Address [address] [place] [address] Care Team Providers Care Travel Manager Name Role Phone Rg Read MD Primary Care Provider [phone] Reason for Referral * Diagnostic Imaging (Routine) - Closed Specialty Diagnoses / Procedures Referred By Contac t Referred To Contact Diagnoses Microvascular angina (HCC) Abnormal ECG Procedures NM MPI SPECT (Rest and/or Stress) Multiple Studies Richie Houston MD Phone: tel: fax: [facility] [id number] [place] [address] Referral ID Status Reason Start Date Expiration Date Visits Re quested Visits Authorized [id number] Closed 05/25/2019 07/09/2019 5 5 Reason for Visit * Diagnostic Imaging (Routine) - Closed Specialty Diagnoses / Procedures Referred By Contwolfgang t Referred To Contact Diagnoses Microvascular angina (HCC) Abnormal ECG Procedures NM MPI SPECT (Rest and/or Stress) Multiple Studies Richie Houston MD Phone: tel: fax: [facility] [address] [place] [address] Referral ID Status Reason Start Date Expiration Date Visits Re quested Visits Authorized [id number] Closed 05/25/2019 07/09/2019 5 5 Encounter Details Date Type Department Care Team (Latest Contact Info) Description 05/27/2019 8:04 AM CDT - 05/27/2019 11:59 PM CDT Hospital Encounter [facility] OP Cardiac Testing [address] [facility] [address] [place] [address] Richie Houston MD [address] [facility] [address] [place] [address] Microvascular angina (CMS/HCC); Abnormal ECG Discharge Disposition: Discharge to home or self care Social History Tobacco Use Types Packs/Day Years Used Date Smoking Tobacco: Never Smokeless Tobacco: Never Alcohol Use Standard Drinks/Week Comments Yes 0 (1 standard drink = 0.6 oz pur e alcohol) Comments Unknown Sex and Gender Information Value Date Recorded Sex Assigned at Not on file Legal Sex Female 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 Gender Identity Not on file Sexual Orientation Lesbian 05/24/2019 9: 06 AM CDT documented as of this encounter Medications at Time of Discharge atorvastatin (LIPITOR) 20 mg tabletIndication s:hyperlipidemia Take 1 tablet (20 mg total) by mouth nightly 07/29/2018 ALPRAZolam (XANAX) 0.25 mg tablet Take 2 tablets (0.5 mg total) by mouth 2 (two) times a day as needed for anxiety 60 tablet 1 02/22/2019 0 b complex vitamins tablet take 1 Tablet by Oral route every day 0 0 06/21/2013 1 busPIRone (BUSPAR) 10 mg tablet 10 mg daily 02/12/2019 0 cetirizine (ZyrTEC) 10 mg capsule 10 mg daily 12/31/2018 0 cholecalciferol (VITAMIN D3) 5,000 unit tablet take 1 Tablet by Oral route once 0 0 06/21/2013 0 coenzyme Q10 (CO Q-10) 100 mg capsule take 1 Capsule by Oral route once 0 0 06/21/[address] (VOLTAREN) 75 mg EC tablet Take 75 mg by mouth 2 (two) times a day 0 diltiazem (TIAZAC) 180 mg 24 hr capsule take 1 capsule (180MG) by oral route every day 90 3 06/15/2012 0 fluticasone (FLONASE) 50 mcg/actuation nasal spray inhale 1 spray (50MCG) by intranasal route every day in each nostril 0 06/15/2012 4 HYDROcodone-acet aminophen (NORCO) 7.5-325 mg per tabletIndication s:Pain Take 1 tablet by mouth every 8 (eight) hours as needed for pain 0 montelukast (SINGULAIR) 10 mg tabletIndication s:Seasonal Allergic Rhinitis Take 10 mg by mouth nightly 10/25/2018 1 omega-3 fatty acids-fish oil (OMEGA 3 FISH OIL) 684-1,200 mg capsule,delayed release(DR/EC) take 1 Capsule by Oral route 2 times every day 0 06/11/2012 0 PARoxetine (PAXIL) 20 mg tablet 1/2 tab daily in the AM for 10 days, then 1 tab daily in the AM. 02/17/2019 0 tiZANidine (ZANAFLEX) 4 mg tablet 4 mg every 8 (eight) hours as needed 01/05/2019 0 triamterene-hydr oCHLOROthiazide (triamterene-hyd roCHLOROthiazide ) 37.5-25 mg per tablet/capsule Take 1 tablet/capsule by mouth daily 90 tablet/capsule 3 10/11/2018 0 documented as of this encounter Discharge Disposition Disposition Code Departure Means Destination Discharge to home or self care documented in this encounter Plan of Treatment Not on file documented as of this encounter Procedures Procedure Name Priority Date/Time Associated Diagnosis Comments NM MPI SPECT (REST AND/OR STRESS) MULTIPLE STUDIES Schedule Routine, Read Routine (OP Routine) 05/27/2019 10:14 AM CDT Microvascular angina (CMS/HCC) Abnormal ECG documented in this encounter Results * NM MPI SPECT (Rest and/or Stress) Multiple Studies (05/27/2019 10:14 AM CDT) Anatomical Region Laterality Modality Body N/A Nuclear Medicine 05/27/2019 8:34 AM CDT Narrative 05/27/2019 11:05 AM CDT [facility] [address] [place] [address] MPI Imaging Report Patient Name: MACIE BRISENO G : 1945 Study Date: 05/27/2019 8:34:52 AM Gender: F Tech: SP Ref.Provider: RICHIE HOUSTON Height(Cm): ??BSA: Weight(Kg): ??Heart Rate: 126 Order Provider: RICHIE HOUSTON Procedures: Pharmacologic SPECT Report.: Myocardial perfusion imaging with Sestamibi SPECT at rest and post regadenoson (Lexiscan) infusion. Indications: Chest Pain, and Pre-Op Clearance. Findings: Procedure Data: One day rest/stress protocol was used with IV site located at right hand. Lexiscan Protocol. Sestamibi injected IV at rest was 8.2 millicuries. Rest SPECT imaging was performed 30 minutes post injection. Lexiscan 0.4mg given IV over 10 seconds. Sestamibi injected IV post Lexiscan was 25.3 millicuries. Stress SPECT Gated imaging was performed 45 minutes post Lexiscan injection. TID: 1.23. Resting HR 68 bpm. Peak HR: 87 bpm. Predicted Maximal HR 148 bpm. Percent Max Predicted HR Achieved: 58.8 %. Baseline BP: 147/68 mmHg. Peak BP: 137/64 mmHg. Performed By: BRANDIE Frias. Reason for Termination: Lexiscan protocol complete. Resting ECG: Normal sinus rhythm. LVH. Nonspecific T wave abnormality. Post Pharm ECG: No diagnostic ST changes. Arrhythmia: Occasional APCs. Cardiac Symptoms With Stress: Symptoms with stress were Dyspnea and nausea. Symptoms were resolved with rest and caffeine. BP Response: Blood pressure response is appropriate. Perfusion: No definite fixed or reversible defects. Technical quality of study is good. LV Function: Global left ventricular function is normal. Left ventricular ejection fraction is 73 %. Conclusions: 1. Negative Pharmacologic Stress Myocardial Perfusion Imaging without ischemia or infarct. Heart rate increase is not required for adequate pharmacologic vasodilator stress. 2. Normal Gated Spect study with EF of 73%. Electronically Signed By: Richie Houston MD 2019-05-27 11:05:52 CDT Procedure Note Richie Houston MD - 05/27/2019 [facility] [address] [place] [address] MPI Imaging Report Patient Name: MACIE BRISENO G : 1945 Study Date: 05/27/2019 8:34:52 AM Gender: F Tech: SP Ref.Provider: RICHIE HOUSTON Height(Cm): BSA: Weight(Kg): Heart Rate: 126 Order Provider: RICHIE HOUSTON Procedures: Pharmacologic SPECT Report.: Myocardial perfusion imaging with Sestamibi SPECT at rest and postregadenoson (Lexiscan) infusion. Indications: Chest Pain, and Pre-Op Clearance. Findings: Procedure Data: One day rest/stress protocol was used with IV site located at right hand.Lexiscan Protocol. Sestamibi injected IV at rest was 8.2 millicuries. Rest SPECTimaging was performed 30 minutes post injection. Lexiscan 0.4mg given IV over 10seconds. Sestamibi injected IV post Lexiscan was 25.3 millicuries. Stress SPECT Gated imagingwas performed 45 minutes post Lexiscan injection. TID: 1.23. Resting HR 68 bpm. Peak HR:87 bpm. Predicted Maximal HR 148 bpm. Percent Max Predicted HR Achieved: 58.8 %.Baseline BP: 147/68 mmHg. Peak BP: 137/64 mmHg. Performed By: BRANDIE Frias. Reason for Termination: Lexiscan protocol complete. Resting ECG: Normal sinus rhythm. LVH. Nonspecific T wave abnormality. Post Pharm ECG: No diagnostic ST changes. Arrhythmia: Occasional APCs. Cardiac Symptoms With Stress: Symptoms with stress were Dyspnea and nausea. Symptoms were resolved withrest and caffeine. BP Response: Blood pressure response is appropriate. Perfusion: No definite fixed or reversible defects. Technical quality of study isgood. LV Function: Global left ventricular function is normal. Left ventricular ejectionfraction is 73 %. Conclusions: 1. Negative Pharmacologic Stress Myocardial Perfusion Imaging withoutischemia or infarct. Heart rate increase is not required for adequate pharmacologicvasodilator stress. 2. Normal Gated Spect study with EF of 73%. Electronically Signed By: Richie Houston MD 2019-05-27 11:05:52 CDT Richie Houston MD IMG NM PROCEDURES Final Res ult documented in this encounter Visit Diagnoses Diagnosis Microvascular angina (HCC) Abnormal ECG Nonspecific abnormal electrocardiogram (ECG) (EKG) documented in this encounter Administered Medications Inactive Administered Medications - up to 3 most recent administrations Medication Order MAR Action Action Date Dose Rate Site regadenoson (LEXISCAN) 0.4 mg/5 mL injection 0.4 mg 0.4 mg, intravenous, Once, On Thu05/27/19 at 0945, For 1 dose, Pre-Procedure (CV), Rapid IV injection (10 seconds). Administer IV push over 10 seconds., Indications: Myocardial Perfusion Imaging AdjunctIndications:Myocard ial Perfusion Imaging Adjunct Given 05/27/2019 9:15 AM CDT 0.4 mg tc-99m sestamibi unit dose injection 25.3 millicurie 25.3 millicurie, intravenous, Once in imaging, radiopharmaceutical, Starting on Thu05/27/19 at 0903, For 1 dose, Indications: Diagnostic RadiographyIndications:Valarie gnostic Radiography Given 05/27/2019 9:15 AM CDT 25.3 millicuries tc-99m sestamibi unit dose injection 8.2 millicurie 8.2 millicurie, intravenous, Once in imaging, radiopharmaceutical, Starting on Thu05/27/19 at 0903, For 1 dose, Indications: Diagnostic RadiographyIndications:Valarie gnostic Radiography Given 05/27/2019 8:25 AM CDT 8.2 millicuries documented in this encounter Orders Medications Ordered That Tyrone ht Not Have Been Administered Count Last Ordered Date First Ordered Date sodium chloride 0.9% flush 0.5-20 mL 2 07/2018 documented in this encounter Care Teams Travel Manager Relationship Specialty Start Date End Date Rg Read MD PCP - General 06/21/13 04/25/20 documented as of this encounter
--- OUTSIDE RECORDS SUMMARY | 2024-07-12 08:59 | XMS_ITS | Encounter Summary ---
Author Organization [facility] Address [address] [place] [address] Phone Care Team Providers Care Master Plumber Name Role Phone Rg Read MD Primary Care Provider [phone] Encounter Details Date Type Department Care Team (Late st Contact Info) Description 09/29/2019 Documentation [facility] Otolaryngology [address] [facility] Advanced Medicine 11th [place] [address] [place] [address] Dulce Luna Au.D. [address] [place] [address] Social History Tobacco Use Types Packs/Day Years Used Date Smoking Tobacco: Never Smokeless Tobacco: Never Alcohol Use Standard Drinks/Week Comments Yes 0 (1 standard drink = 0.6 oz pur e alcohol) Comments Unknown Sex and Gender Information Value Date Recorded Sex Assigned at Not on file Legal Sex Female 9:09 PM INFORMATION TECHNOLOGY DATA ANALYST Gender Identity Not on file Sexual Orientation Lesbian 05/24/2019 9: 06 AM CDT documented as of this encounter Progress Notes * Dulce Luna Au.D. - 09/29/2019 1:[address] Jackson asked me to speak with the patient briefly about the cochlear implant. We discussed the pre-op process, candidacy evaluation and need for predetermination. She was given the red folder andelected not to have an eval today but will call if she would like to proceed. She has seen Dr. Edmondson previously and was told he could be her surgeon. RMATION TECHNOLOGY DATA ANALYST documented in this encounter Plan of Treatment Not on file documented as of this encounter Visit Diagnoses Not on filedocumented in this encounter Care Teams Master Plumber Relationship Specialty Start Date End Date Rg Read MD PCP - General 06/21/13 04/25/20 documented as of this encounter
--- OUTSIDE RECORDS SUMMARY | 2024-07-12 08:59 | XMS_ITS | Encounter Summary ---
Author Organization [facility] Address [address] [place] [address] Phone Care Team Providers Care Ship Erector Name Role Phone Rg Read MD Primary Care Provider [phone] Reason for Visit * Reason Comments Hearing Aid Check * ENT (Routine) - Closed Specialty Diagnoses / Procedures Referred By Contwolfgang t Referred To Contact Audiology Diagnoses HAC Procedures HEARING AID CHECK Rg Read MD [address] [place] [address] Phone: tel: fax: Anahy Frances Au.D. [address] [address] Phone: tel: fax: Referral ID Status Reason Start Date Expiration Date Visits Re quested Visits Authorized [id number] Closed 07/29/2019 02/06/2021 1 1 Encounter Details Date Type Department Care Team (Latest Contact Info) Description 07/29/2019 4:00 PM SAP BOBJ DEVELOPER Procedure visit [facility] Otolaryngology [address] [facility] [address] [place] [address] Anahy Frances Au.D. [address] [facility] [place] [address] Sensorineural hearing loss, asymmetrical (Primary Dx) Social History Tobacco Use Types Packs/Day Years Used Date Smoking Tobacco: Never Smokeless Tobacco: Never Alcohol Use Standard Drinks/Week Comments Yes 0 (1 standard drink = 0.6 oz pur e alcohol) Comments Unknown Sex and Gender Information Value Date Recorded Sex Assigned at Not on file Legal Sex Female 9:09 PM SAP BOBJ DEVELOPER Gender Identity Not on file Sexual Orientation Lesbian 05/24/2019 9: 06 AM CDT documented as of this encounter Procedure Notes * Anahy Frances Au.D. - 07/29/2019 4:00 PM CST Procedures Macie Briseno [id number] 07/29/19 Patient reported: Left hearing aid is not working Would like audiogram - wonders if she is a cochlear implant candidate ASSESSMENT: Director Search was not working Changed size 2P milk receiver tank truck - patient paid $125 Briefly discussed cochlear implant, provided patient with [employer] brochure and recommended patient attend a meeting. PLAN/RECOMMENDATIONS: Audiogram/hearing aid check scheduled in August BOBJ DEVELOPER documented in this encounter Plan of Treatment Not on file documented as of this encounter Visit Diagnoses Diagnosis Sensorineural hearing loss, asymmetrical- Primary documented in this encounter Care Teams Ship Erector Relationship Specialty Start Date End Date Rg Read MD PCP - General 06/21/13 04/25/20 documented as of this encounter
--- OUTSIDE RECORDS SUMMARY | 2024-07-12 08:59 | XMS_ITS | Encounter Summary ---
Author Organization [facility] Address [address] [place] [address] Phone Care Team Providers Care Unloading Checker Name Role Phone Rg Read MD Primary Care Provider [phone] Reason for Visit * Reason Comments Audiometric Evaluation Hearing Aid Check * ENT (Routine) - Closed Specialty Diagnoses / Procedures Referred By Contac t Referred To Contact Diagnoses Sensory hearing loss, bilateral Procedures Audiogram Juan Carlos Jackson MD Phone: tel: fax: [facility] (All Locations) Referral ID Status Reason Start Date Expiration Date Visits Re quested Visits Authorized [id number] Closed 08/29/2019 03/09/2021 6 6 Encounter Details Date Type Department Care Team (Latest Contact Info) Description 09/05/2019 2:30 PM ICT TRAINER Procedure visit [facility] Otolaryngology [address] [facility] [address] [place] [address] Anahy Frances Au.D. [address] [facility] [address] [place] [address] SNHL (sensory-neural hearing loss), asymmetrical (Primary Dx); Sensory hearing loss, bilateral; Subjective tinnitus, unspecified laterality Social History Tobacco Use Types Packs/Day Years Used Date Smoking Tobacco: Never Smokeless Tobacco: Never Alcohol Use Standard Drinks/Week Comments Yes 0 (1 standard drink = 0.6 oz pur e alcohol) Comments Unknown Sex and Gender Information Value Date Recorded Sex Assigned at Not on file Legal Sex Female 9:09 PM ICT TRAINER Gender Identity Not on file Sexual Orientation Lesbian 05/24/2019 9: 06 AM CDT documented as of this encounter Procedure Notes * Anahy Frances Au.D. - 09/05/2019 2:30 PM CST Procedures Digna Metcalf [facility] PATIENT: Macie Briseno : 1945 TYPE OF SERVICE: Audiogram/Hearing aid check DATE OF SERVICE: 09/05/2019 REFERRAL SOURCE:Juan Carlos Jackson MD PATIENT REPORTS: Macie Briseno is seen today for an annual audiological evaluation. Her primary concern is hearing has declined in right ear. Cannot hear without hearing aid and word clarity has diminished. Changes in health history in the past year - back surgery TESTS PERFORMED: See: comprehensive audiological evaluation andelectroacoustic analysis Otoscopy: unremarkable, both ears - TM visualized Pure tone audiometry was performed and revealed: R ear - Moderate to severe sensorineural hearing loss L ear - Moderately severe to severe sensorineural hearing loss Speech recognition thresholds test was performed and revealed: Right: moderate loss in the ability to receive speech Left: moderate severe loss in the ability to receive speech Word recognition testing was performed at [facility] using recorded version of NU-6 lists of a female speaker: Right: moderate difficulty in the ability to recognize speech. Left: very poor recognition in the ability to recognize speech. DNT immittance See scan of today's audiogram for comparison to previous audiogram dated: 08-18-2018 HEARING AID ASSESSMENT: Electroacoustic analysis was performed using [employer] accredited legal secretary (ANSI S3.22-2009) revealed: Both hearing aids - excellent performance, Toll Collector Settings [id number] MTG EIN Right CIC Test 117.5 35.5 25.5 Left CIC Test 120.3 38 25.2 Hearing aid programming changes: Overall gain right aid turned up 2 steps, all input levels and allprograms Widex self test - ok both aids Repairs to hearing aid/earmold included: Replaced wax traps, cleaned Discussed alerting options in the event of an emergency - recommended patient contact police and fire department and inform them she has significant hearing loss. Presented option of vibration for telephone and sonic boom alarm clock - patient will consider. RECOMMENDATIONS: ??? Copy of audiologic evaluation and report sent to Juan Carlos Jackson MD ??? Counseled patient on the results of the audiologic examination and 2 cc analysis and answered any questions that arose. ??? Continue use of hearing aids ??? Hearing protection in noise ??? Hearing assistive technology ??? Hearing aid check has been scheduled for six months TRAINER documented in this encounter Plan of Treatment Not on file documented as of this encounter Procedures Procedure Name Priority Date/Time Associated Diagnosis Comments AUDBASE RESULTS 09/05/2019 documented in this encounter Results * AUDBASE RESULTS (09/05/2019) Provider Scanning AUDIOLOGY SERVICES ORDERABLES Final Result documented in this encounter Visit Diagnoses Diagnosis SNHL (sensory-neural hearing loss), asymmetrical- Primary Sensorineural hearing loss, asymmetrical Sensory hearing loss, bilateral Subjective tinnitus, unspecified laterality documented in this encounter Orders Audiology Count Last Ordered Date First Orde red Date AUDIOGRAM 1 09/05/2019 documented in this encounter Care Teams Unloading Checker Relationship Specialty Start Date End Date Rg Read MD PCP - General 06/21/13 04/25/20 documented as of this encounter
--- OUTSIDE RECORDS SUMMARY | 2024-07-12 08:59 | XMS_ITS | Encounter Summary ---
Author Organization [facility] Address [address] [place] [address] Phone Care Team Providers Care Auto Body Mechanic Name Role Phone Rg Read MD Primary Care Provider [phone] Reason for Visit * Reason Comments Meniere's Disease * ENT (Routine) - Closed Specialty Diagnoses / Procedures Referred By Gigi orosco Referred To Contact Otolaryngology Diagnoses 6 month f/u Procedures RETURN Rg Read MD Phone: tel: fax: Juan Carlos Jackson MD [address] [address] Phone: tel: fax: Referral ID Status Reason Start Date Expiration Date Visits Re quested Visits Authorized [id number] Closed 05/04/2019 11/12/2020 1 1 Encounter Details Date Type Department Care Team (Late st Contact Info) Description 09/29/2019 1:00 PM NATURAL RESOURCES MANAGER Office Visit [facility] ([facility]) - [facility] ENT [address] 11th [place] [address] [place] [address] Juan Carlos Jackson MD [address] [address] Sensorineural hearing loss, asymmetrical (Primary Dx); Meniere's disease of both ears Social History Tobacco Use Types Packs/Day Years Used Date Smoking Tobacco: Never Smokeless Tobacco: Never Alcohol Use Standard Drinks/Week Comments Yes 0 (1 standard drink = 0.6 oz pur e alcohol) Comments Unknown Sex and Gender Information Value Date Recorded Sex Assigned at Not on file Legal Sex Female 9:09 PM NATURAL RESOURCES MANAGER Gender Identity Not on file Sexual Orientation Lesbian 05/24/2019 9: 06 AM CDT documented as of this encounter Progress Notes * Juan Carlos Jackson MD - 09/29/2019 1:00 PM CST [facility] Department of Otolaryngology - Head & Neck Surgery Return Office Visit 09/29/2019 Juan Carlos Jackson MD, FACS, FRCS MA: Mary Salguero Primary Care Provider: Rg Read MD Name: Macie Briseno Date of : 1945 Chief Complaint: Follow-up bilateral Meniere's disease with vestibular nerve section left ear and asymmetric left greater than right sensorineural hearing loss. HISTORY OF PRESENT ILLNESS: Patient returns to the office today for follow-up bilateral Meniere's disease. She did an audiograma week or 2 ago and it shows significant asymmetric left greater than right sensorineural hearing loss with severe impairment her word recognition on the left and moderate impairment on the right. She is having no vertigo spells. Evidently 1 point she was evaluated for possible cochlear implant buther left ear was not aided. Now she is wearing 2 aids and is still struggling and wants to know what further can be done. Past Medical History: Diagnosis Date ??? Auditory vertigo Meniere's disease Past Surgical History: Procedure Laterality Date ??? BACK SURGERY lower back ??? CHOLECYSTECTOMY Cholecystectomy ??? OTHER SURGICAL HISTORY 1998 Sectioning of left vesibular nerve Allergies Allergen Reactions ??? Sulfa (Sulfonamide Antibiotics) Current Outpatient Medications: ??? ALPRAZolam (XANAX) 0.25 mg tablet, Take 2 tablets (0.5 mg total) by mouth 2 (two) times a day as needed for anxiety, Disp: 60 tablet, Rfl: 1 ??? atorvastatin (LIPITOR) 20 mg tablet, 20 mg daily , Disp: , Rfl: ??? b complex vitamins tablet, take 1 Tablet by Oral route every day, Disp: 0, Rfl: 0 ??? busPIRone (BUSPAR) 10 mg tablet, 10 mg daily , Disp: , Rfl: ??? cetirizine (ZyrTEC) 10 mg capsule, 10 mg daily , Disp: , Rfl: ??? cholecalciferol (VITAMIN D3) 5,000 unit tablet, take 1 Tablet by Oral route once, Disp: 0, Rfl:0 ??? coenzyme Q10 (CO Q-10) 100 mg capsule, take 1 Capsule by Oral route once, Disp: 0, Rfl: 0 ??? diclofenac DR (VOLTAREN) 75 mg EC tablet, Take 75 mg by mouth 2 (two) times a day, Disp: , Rfl: ??? diltiazem (TIAZAC) 180 mg 24 hr capsule, take 1 capsule (180MG) by oral route every day, Disp: 90, Rfl: 3 ??? fluticasone (FLONASE) 50 mcg/actuation nasal spray, inhale 1 spray (50MCG) by intranasal route every day in each nostril, Disp: , Rfl: 0 ??? HYDROcodone-acetaminophen (NORCO) 7.5-325 mg per tablet, Take 1 tablet by mouth every 8 (eight)hours as needed for pain, Disp: , Rfl: ??? montelukast (SINGULAIR) 10 mg tablet, Take 10 mg by mouth daily, Disp: , Rfl: ??? omega-3 fatty acids-fish oil (OMEGA 3 FISH OIL) 684-1,200 mg capsule,delayed release(DR/EC), take 1 Capsule by Oral route 2 times every day, Disp: , Rfl: 0 ??? PARoxetine (PAXIL) 20 mg tablet, 1/2 tab daily in the AM for 10 days, then 1 tab daily in the AM., Disp: , Rfl: ??? tiZANidine (ZANAFLEX) 4 mg tablet, 4 mg every 8 (eight) hours as needed , Disp: , Rfl: ??? triamterene-hydroCHLOROthiazide (triamterene-hydroCHLOROthiazide) 37.5-25 mg per tablet/capsule, Take 1 tablet/capsule by mouth daily, Disp: 90 tablet/capsule, Rfl: 3 Social History Socioeconomic History ??? Marital status: [...] file Gets together: Not on file Attends anglican service: Not on file Active member of [...] Neg Hx ??? Sudden Cardiac Neg Hx REVIEW OF SYSTEMS A complete review of systems was completed by the patient on the Patient History Form and reviewed with the patient during the visit. The patient intake form, including the past medical history, past surgical history, social history,family history, medications, allergies and review of systems was reviewed in its entirety and was signed and dated by myself. The Patient History Form can be found in the electronic medical record asa scanned document. PHYSICAL EXAM: Constitutional: Patient is cooperative oriented and alert. She has a healed post a regular surgical site consistentwith nurse section on the left. Tympanic membranes are clear. Her ocular motor function is normal. She has a positive left Halmagyi head impulse sign side to center. Her posture and gait are stable. IMPRESSION: Bilateral Meniere's disease with severe hearing impairment. She may be a candidate for cochlear implantation in the left ear and I have asked the cochlear implant team to take a look at her. PLAN: See above. Thank you for allowing me to participate in the care of Ms. Briseno. Should you have any questions or concerns, please do not hesitate to contact my office. Warm regards, Juan Carlos Jackson MD, FACS, FRCS Professor and Director [facility] Department of Otolaryngology - Head & Neck Surgery [facility] RAL RESOURCES MANAGER documented in this encounter Plan of Treatment Not on file documented as of this encounter Visit Diagnoses Diagnosis Sensorineural hearing loss, asymmetrical- Primary Meniere's disease of both ears documented in this encounter Discontinued Medications Medication Sig Discontinue Reason Start Date End Da te diclofenac DR (VOLTAREN) 75 mg EC tablet Take 75 mg by mouth 2 (two) times a day 09/29/2019 HYDROcodone-acetaminophe n (NORCO) 7.5-325 mg per tabletIndications:Pain Take 1 tablet by mouth every 8 (eight) hours as needed for pain 09/29/2019 omega-3 fatty acids-fish oil (OMEGA 3 FISH OIL) 684-1,200 mg capsule,delayed release(DR/EC) take 1 Capsule by Oral route 2 times every day 06/11/2012 09/29/2019 tiZANidine (ZANAFLEX) 4 mg tablet 4 mg every 8 (eight) hours as needed 01/05/2019 09/29/2019 documented as of this encounter Care Teams Auto Body Mechanic Relationship Specialty Start Date End Date Rg Read MD PCP - General 06/21/13 04/25/20 documented as of this encounter
--- OUTSIDE RECORDS SUMMARY | 2024-07-12 08:59 | XMS_ITS | Encounter Summary ---
Author Organization [facility] Address [address] [place] [address] Care Team Providers Care Vest Backer Name Role Phone Rg Read MD Primary Care Provider [phone] Reason for Visit * Diagnostic Imaging (Routine) - Closed Specialty Diagnoses / Procedures Referred By Contac t Referred To Contact Diagnoses Microvascular angina (HCC) Abnormal ECG Procedures NM MPI SPECT (Rest and/or Stress) Multiple Studies Richie Houston MD Phone: tel: fax: [id number] [place] [address] Referral ID Status Reason Start Date Expiration Date Visits Re quested Visits Authorized [id number] Closed 05/25/2019 07/09/2019 5 5 Encounter Details Date Type Department Care Team (Latest Contact Info) Description 05/27/2019 8:04 AM CDT - 05/27/2019 11:59 PM CDT Hospital Encounter [facility] OP Cardiac Testing [address] [place] [address] Richie Houston MD [address] [facility] [address] [place] [address] Discharge Disposition: Discharge to home or self care Social History Tobacco Use Types Packs/Day Years Used Date Smoking Tobacco: Never Smokeless Tobacco: Never Alcohol Use Standard Drinks/Week Comments Yes 0 (1 standard drink = 0.6 oz pur e alcohol) Comments Unknown Sex and Gender Information Value Date Recorded Sex Assigned at Not on file Legal Sex Female 9:09 PM NATIONAL OPELINT ANALYST Gender Identity Not on file Sexual [...] AM CDT Narrative 05/27/2019 11:05 AM CDT [facility] Outpatient Cardiac Testing Center [address] [place] [address] MPI Imaging Report Patient Name: MACIE BRISENO [...] Procedure Note Richie Houston MD - 05/27/2019 [facility] Cardiac Testing Center [address] [place] [id number] MPI Imaging Report Patient Name: MACIE BRISENO G : [id number] Study Date: 05/27/2019 8:34:52 AM Gender: F [...] By: Richie Houston MD 2019-05-27 11:05:52 CDT us Richie Houston MD IMG NM PROCEDURES Final Res ult documented in this encounter Visit Diagnoses Not on filedocumented in this encounter Care Teams Vest Backer Relationship Specialty Start Date End Date Rg Read MD PCP - General 06/21/13 04/25/20 documented as of this encounter
--- OUTSIDE RECORDS SUMMARY | 2024-07-12 08:59 | XMS_ITS | Encounter Summary ---
Author Organization [facility] Healthcare Address [address] [place] [address] Care Team Providers Care Diabetologist Name Role Phone Rg Read MD Primary Care Provider [phone] Encounter Details Date Type Department Care Team (Latest Contact Info) Description 05/26/2019 3:19 PM CDT - 05/26/2019 11:59 PM CDT Hospital Encounter [facility] [address] [place] [address] Discharge Disposition: Discharge to home or self care Social History Tobacco Use Types Packs/Day Years Used Date Smoking Tobacco: Never Smokeless Tobacco: Never Alcohol Use Standard Drinks/Week Comments Yes 0 (1 standard drink = 0.6 oz pur e alcohol) Comments Unknown Sex and Gender Information Value Date Recorded Sex Assigned at Not on file Legal Sex Female 9:09 PM DIGITAL X RAY SERVICE ENGINEER Gender Identity Not on file Sexual [...] Procedure Name Priority Date/Time Associated Diagnosis Comments NEURO CT MR OUTSIDE REFERENCE Routine 05/26/2019 3:19 PM CDT Diagnosis unknown documented in this encounter Results * Neuro CT MR Outside Reference (05/26/2019 3:19 PM CDT) Impressions RAD_P[facility] - 05/26/2019 3:19 PM CDT These images are for Reference purposes only and have not been reviewed by [facility] Radiology. ??There will be no report generated by a [facility] Radiologist. Narrative [facility] - 05/26/2019 3:19 PM CDT EXAMINATION: ??Images For Reference Purposes Only us Kyler Hunt MD IMG CT PROCEDURES Final Res ult [facility] documented in this encounter Visit Diagnoses Not on filedocumented in this encounter Care Teams Diabetologist Relationship Specialty Start Date End Date Rg Read MD PCP - General 06/21/13 04/25/20 documented as of this encounter
--- OUTSIDE RECORDS SUMMARY | 2024-07-12 08:59 | XMS_ITS | Encounter Summary ---
Author Organization [facility] Address [address] [place] [address] Phone Care Team Providers Care Tank Driver Name Role Phone Rg Read MD Primary Care Provider [phone] Reason for Visit * Reason Comments Hearing Aid Check * ENT (Routine) - Closed Specialty Diagnoses / Procedures Referred By Contac t Referred To Contact Diagnoses Sensory hearing loss, bilateral Procedures Audiogram Juan Carlos Jacksno MD Phone: tel: fax: [facility] (All Locations) Referral ID Status Reason Start Date Expiration Date Visits Re quested Visits Authorized [id number] Closed 08/29/2019 03/09/2021 6 6 Encounter Details Date Type Department Care Team (Latest Contact Info) Description 02/27/2020 1:00 PM CDT Procedure visit [facility] Otolaryngology [facility] Medical Office Building [address] [address] Anahy Frances Au.D. [address] [place] [id number] Sensorineural hearing loss (SNHL) of both ears (Primary Dx) Social History Tobacco Use Types Packs/Day Years Used Date Smoking Tobacco: Never Smokeless Tobacco: Never Alcohol Use Standard Drinks/Week Comments Yes 0 (1 standard drink = 0.6 oz pur e alcohol) Comments Unknown Sex and Gender Information Value Date Recorded Sex Assigned at Not on file Legal Sex Female 9:09 PM PUBLICITY MANAGER Gender Identity Not on file Sexual Orientation Lesbian 05/24/2019 9: 06 AM CDT documented as of this encounter Procedure Notes * Anahy Frances Au.D. - 02/27/2020 1:00 PM CDT Procedures Macie Briseno [id number] 02/27/20 FriendSunita attended appointment Scheduled Routine check Patient reported: right aid seems weaker than left especially on music program. ASSESSMENT: Aids cleaned and checked. Widex self test - ok both aids Provided patient with extended warranty option and patient will consider - this is just for right aid which is newer. Electroacoustic analysis was performed and revealed: bilateral hearing aid(s) - working within specifications set on Test Mode/F.O.G Director Of Pediatric Rehabilitation Settings OSPL90 MTG EIN Right CIC Test 121.6 43.1 19.5 Left CIC Test 125.4 45.8 21.1 Hearing aid programming changes: per patient request increased overall gain on right hearing aid one step for all input levels and all frequency handles. Listening check revealed: Aids clear and no evidence of distortion or intermittent performance. VC and Program buttons functioning properly PLAN/RECOMMENDATIONS: Hearing aid check in 6 months with a hearing test Call if elects to extend warranty - patient will f/u with Care at the [facility] documented in this encounter Plan of Treatment Not on file documented as of this encounter Visit Diagnoses Diagnosis Sensorineural hearing loss (SNHL) of both ears- Primary documented in this encounter Care Teams Tank Driver Relationship Specialty Start Date End Date Rg Read MD PCP - General 06/21/13 04/25/20 documented as of this encounter
--- OUTSIDE RECORDS SUMMARY | 2024-07-12 08:59 | XMS_ITS | Encounter Summary ---
Author Organization [facility] Address [address] [place] [address] Care Team Providers Care Box Spring Maker Name Role Phone Rg Read MD Primary Care Provider Reason for Visit * Reason Onset Date Comments Test Results 05/27/2019 Encounter Details Date Type Department Care Team (Late st Contact Info) Description 05/27/2019 Telephone [facility] [address] [place] [address] Tg Houston MD [address] [place] [address] [address] [place] [address] Test Results Social History Tobacco Use Types Packs/Day Years Used Date Smoking Tobacco: Never Smokeless Tobacco: Never Alcohol Use Standard Drinks/Week Comments Yes 0 (1 standard drink = 0.6 oz pur e alcohol) Comments Unknown Sex and Gender Information Value Date Recorded Sex Assigned at Not on file Legal Sex Female 9:09 PM POWER DISTRIBUTOR Gender Identity Not on file Sexual Orientation Lesbian 05/24/2019 9: 06 AM CDT documented as of this encounter Miscellaneous Notes * Telephone Encounter - Jayda Poole - 05/27/2019 4:27 PM CDT Pt verbally understood and will call back with any questions she may have. * Telephone Encounter - Jayda Poole - 05/27/2019 4:08 PM CDT ----- Message from Tg Houston MD sent at 05/27/2019 4:00 PM CDT ----- Stress test is normal. Based on this, she is cleared for her upcoming surgery. I will send a note to her surgeon. * Telephone Encounter - Marguerite Fajardo - 05/27/2019 10:29 AM CDT Pt just had nuclear stress test as part of her pre-op testing. Her surgery was moved up from 06/08 to 05/31, and she wants to make sure that Dr. Houston sees the results MELISSA and would like to be contacted with results and also make sure that her surgeon is also contacted right away. Surgeon is @ [facility]. documented in this encounter Plan of Treatment Not on file documented as of this encounter Visit Diagnoses Not on filedocumented in this encounter Care Teams Box Spring Maker Relationship Specialty Start Date End Date Rg Read MD PCP - General 06/21/13 04/25/20 documented as of this encounter
--- OUTSIDE RECORDS SUMMARY | 2024-07-12 09:00 | XMS_ITS | Encounter Summary ---
Author Organization [facility] Address [address] [place] [address] Phone Care Team Providers Care Geospatial Scientist Name Role Phone Rg Read MD Primary Care Provider Reason for Visit * Reason Comments Vertigo Pt is here today wit h c/o hearing loss and dizziness-possible Decadron perfusion * ENT (Routine) - Closed Specialty Diagnoses / Procedures Referred By Gigi orosco Referred To Contact Otolaryngology Diagnoses DEX Injection Procedures NEW TO PROVIDER Rg Read MD Phone: tel: fax: Darshana Toth MD [address] [place] [address] Phone: tel: fax: Referral ID Status Reason Start Date Expiration Date Visits Re quested Visits Authorized [id number] Closed 02/18/2019 08/29/2020 1 1 Encounter Details Date Type Department Care Team (Latest Contact Info) Description 02/18/2019 9:30 AM CDT Office Visit [facility] Otolaryngology [facility] [address] [place] [id number] Darshana Toth MD [address] [place] [address] Sensorineural hearing loss, asymmetrical (Primary Dx); Sensorineural hearing loss (SNHL) of both ears; Meniere's disease of both ears Social History Tobacco Use Types Packs/Day Years Used Date Smoking Tobacco: Never Smokeless Tobacco: Never Alcohol Use Standard Drinks/Week Comments Yes 0 (1 standard drink = 0.6 oz pur e alcohol) Comments Unknown Sex and Gender Information Value Date Recorded Sex Assigned at Not on file Legal Sex Female 9:09 PM 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 Read. Chief Complaint: Chief Complaint Patient presents with ??? Vertigo Pt is here today with c/o hearing loss and dizziness-possible Decadron perfusion HPI: This is a 73 y.o. female who presents today for evaluation [...] have worsened since stopping therapy last week. He presents today for evaluation and possible Decadron [...] ??? Financial resource strain: None ??? Food insecurity: Worry: None Inability: None ??? Transportation needs: Medical: None Non-medical: None Tobacco Use ??? Smoking status: Never Smoker ??? Smokeless tobacco: Never Used Substance and Sexual Activity ??? Alcohol use: Yes ??? Drug use: No ??? Sexual activity: None Lifestyle ??? Physical activity: Days per week: None Minutes per session: None ??? Stress: None Relationships ??? Social connections: Talks on phone: None Gets together: None Attends jain service: None Active member of club or organization: None Attends meetings of clubs or organizations: None Relationship status: None ??? Intimate partner violence: Fear of current or ex partner: None Emotionally abused: None Physically abused: None Forced sexual activity: None Other Topics Concern ??? None Social History Narrative General Social History Comments: female spouse Medications/Allergies/Immunizations Current Outpatient Medications Medication Sig Dispense Refill ??? cetirizine (ZyrTEC) 10 mg capsule ??? montelukast (SINGULAIR) 10 mg tablet Take 10 mg by mouth daily ??? PARoxetine (PAXIL) 20 mg tablet 1/2 tab daily in the AM for 10 days, then 1 tab daily in the AM. ??? ALPRAZolam (XANAX) 0.25 mg tablet Take 2 tablets (0.5 mg total) by mouth 2 (two) times a day asneeded for anxiety. 60 tablet 1 ??? AMOXICILLIN 500 mg capsule ??? atorvastatin (LIPITOR) 20 mg tablet ??? b complex vitamins tablet take 1 Tablet by Oral route every day 0 0 ??? busPIRone (BUSPAR) 10 mg tablet ??? cholecalciferol (VITAMIN D3) 5,000 unit tablet take 1 Tablet by Oral route once 0 0 ??? coenzyme Q10 (CO Q-10) 100 mg capsule take 1 Capsule by Oral route once 0 0 ??? diltiazem (TIAZAC) 180 mg 24 hr capsule take 1 capsule (180MG) by oral route every day 90 3 ??? fluticasone (FLONASE) 50 mcg/actuation nasal spray inhale 1 spray (50MCG) by intranasal route every day in each nostril 0 ??? ibuprofen (ADVIL,MOTRIN) 600 mg tablet ??? omega-3 fatty acids-fish oil (OMEGA 3 FISH OIL) 684-1,200 mg capsule,delayed release(DR/EC) take 1 Capsule by Oral route 2 times every day 0 ??? tiZANidine (ZANAFLEX) 4 mg tablet ??? triamterene-hydroCHLOROthiazide (triamterene-hydroCHLOROthiazide) 37.5-25 mg per tablet/capsuleTake 1 tablet/capsule by mouth daily 90 tablet/capsule 3 No current facility-administered medications for this [...] and symmetric. Normal affect. GAIT: Normal. Cerebellar/Postural: Sdvlkf-yotf-hyaamj: Normal. Romberg: eyes open - normal. eyes closed - normal. Hallpike Maneuver: Hallpike Positions: No nystagmus to right or left. ASSESSMENT/PLAN 73-year-old female with history of bilateral Meniere's disease, BPPV, and depression treated with venlafaxine. We discussed considering restarting the venlafaxine even at a low dose since it might have helped with her vestibular symptoms. We deferred Decadron perfusion at this time since her symptoms might have been exacerbated by the recent change in medications. We also discussed the concern about bilateral Meniere's disease and the possibility of progressive hearing loss in the context of a very poor word understanding she has in her left ear. We will evaluate her audiogram with the cochlear implant audiologists and determine if she would benefit from a cochlear implant evaluation. We will touch base with the patient next week. Darshana Toth M.D. Otology and Neurotology Department of Otolaryngology [facility] in [place] [email or web address] Office: Clinic: documented in this encounter Plan of Treatment Not on file documented as of this encounter Visit Diagnoses Diagnosis Sensorineural hearing loss, asymmetrical- Primary Sensorineural hearing loss (SNHL) of both ears Meniere's disease of both ears documented in this encounter Discontinued Medications Medication Sig Discontinue Reason Start Date End Da te fexofenadine-pseudoephed rine (THELMA-D 12 HOUR) 60-120 mg per 12 hr tablet take 1 tablet by oral route 2 times every day as needed 06/15/2012 02/18/2019 venlafaxine (EFFEXOR) 75 mg tablet TAKE TWO TABLETS BY MOUTH EVERY MORNING, TAKE ONE TABLET BY MOUTH EVERY EVENING 03/15/2018 02/18/2019 documented as of this encounter Historical Medications * This list may reflect changes made after this encounter. tiZANidine (ZANAFLEX) 4 mg tablet 4 mg every 8 (eight) hours as needed 01/05/2019 09/29/2019 PARoxetine (PAXIL) 20 mg tablet 1/2 tab daily in the AM for 10 days, then 1 tab daily in the AM. 02/17/2019 06/15/2020 montelukast (SINGULAIR) 10 mg tabletIndications :Seasonal Allergic Rhinitis Take 10 mg by mouth nightly 10/25/2018 07/09/2021 ibuprofen (ADVIL,MOTRIN) 600 mg tablet 01/24/2019 05/24/2019 cetirizine (ZyrTEC) 10 mg capsule 10 mg daily 12/31/2018 06/15/2020 busPIRone (BUSPAR) 10 mg tablet 10 mg daily 02/12/2019 03/26/2020 AMOXICILLIN 500 mg capsule 12/27/2018 05/24/2019 added in this encounter Care Teams Geospatial Scientist Relationship Specialty Start Date End Date Rg Read MD PCP - General 06/21/13 04/25/20 documented as of this encounter
--- OUTSIDE RECORDS SUMMARY | 2024-07-12 09:00 | XMS_ITS | Encounter Summary ---
Author Organization [facility] Address [address] [place] [address] Phone Care Team Providers Care Fat Purification Worker Name Role Phone Rg Read MD Primary Care Provider [phone] Reason for Visit * Reason Comments Hearing Aid Assessment * ENT (Routine) - Closed Specialty Diagnoses / Procedures Referred By Gigi orosco Referred To Contact Audiology Diagnoses HEARING AID CHECK Procedures HEARING AID CHECK Referral, Self Anahy Frances Au.D. [address] [address] Phone: tel: fax: Referral ID Status Reason Start Date Expiration Date Visits Re quested Visits Authorized [id number] Closed 02/19/2018 08/31/2019 1 1 Encounter Details Date Type Department Care Team (Latest Contact Info) Description 02/19/2018 4:30 PM CDT Procedure visit [facility] Otolaryngology [address] [facility] [address] [place] [phone] Anahy Frances Au.D. 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 - 02/19/2018 4:30 PM CDT Procedures Digna Metcalf [facility] PATIENT: Macie Briseno : 1945 TYPE OF SERVICE: Hearing Aid Assessment DATE OF SERVICE: 02/19/2018 Patient reports: new Evoke 220 hearing aid: In quiet environments turns down sound like fan noise to almost nothing and then suddenly it increases like a jet engine for the fan noise. Kitchen sounds 10-15 feet away that are sudden impact are very loud and turning down the volume doesn't help. Tv isclear at the beginning of the day and by the end of the day any background noise like music on tv interferes with talking on tv. Assessment: Phone call to [email or web address] audiology 1. Turned off edward sound softner on universal 2. Turned to plus the reduction for soften impact sounds 3. Suggested patient switch away from Gully to Music or Democrat if any of these issues persist. Plan: 1. Return as scheduled next week - if problems persist over the weekend patient to call and a new replacement aid will be ordered. documented in this encounter Plan of Treatment Not on file documented as of this encounter Visit Diagnoses Diagnosis Sensorineural hearing loss, asymmetrical- Primary documented in this encounter Care Teams Fat Purification Worker Relationship Specialty Start Date End Date Rg Read MD PCP - General 06/21/13 04/25/20 documented as of this encounter
--- OUTSIDE RECORDS SUMMARY | 2024-07-12 09:00 | XMS_ITS | Encounter Summary ---
Author Organization [facility] Address [address] [place] [address] Phone Care Team Providers Care Rim Buster Name Role Phone Rg Read MD Primary Care Provider [phone] Reason for Visit * Reason Comments Hearing Aid Check * ENT (Routine) - Closed Specialty Diagnoses / Procedures Referred By Gigi orosco Referred To Contact Audiology Diagnoses HEARING AID CHECK Procedures HEARING AID CHECK Rg Read MD Phone: tel: fax: Anahy Frances Au.D. [address] [facility] [place] [address] Phone: tel: fax: Referral ID Status Reason Start Date Expiration Date Visits Re quested Visits Authorized [id number] Closed 03/03/2018 09/12/2019 1 1 Encounter Details Date Type Department Care Team (Latest Contact Info) Description 03/03/2018 2:00 PM CDT Procedure visit [facility] Otolaryngology [address] [facility] [address] [place] [phone] Anahy Frances Au.D. 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 - 03/03/2018 2:00 PM CDT Procedures Macie Briseno [id number] 03/03/18 Here to picking table worker replacement hearing aid Noted this problem with surging happens towards the end of the day and generally not when outdoors but could be anywhere - noted in the last few days aid would turn off and then when patient realizedsound was shut off it would say right and turn back on. ASSESSMENT: Informed patient [place] hearing aid is on indefinite back order instead ordered a beige hearingaid. P sheet rock installer was not available yet with new atul and audiology at [facility] recommended M be used. Set up new file as Sharon Acharya in [facility] for completely new file for replacement aid. Set gain values to previous aid and completed feedback test/sensogram at all frequencies. Set same programs as previously and the only feature changes were impact sounds were set to medium setting for kitchen noises. Patient agreed to have original aid returned to [facility] for evaluation. Informed patient rc dex/comdex and virgiloi on phone would not be connected until it was verified the surging sound was not longer occurring. PLAN/RECOMMENDATIONS: 2 week f/u documented in this encounter Plan of Treatment Not on file documented as of this encounter Visit Diagnoses Diagnosis Sensorineural hearing loss, asymmetrical- Primary documented in this encounter Care Teams Rim Buster Relationship Specialty Start Date End Date Rg Read MD PCP - General 06/21/13 04/25/20 documented as of this encounter
--- OUTSIDE RECORDS SUMMARY | 2024-07-12 09:00 | XMS_ITS | Encounter Summary ---
Author Organization [facility] Address [address] [place] [address] Phone Care Team Providers Care Geomorphology Teacher Name Role Phone Rg Read MD Primary Care Provider [phone] Reason for Visit * Reason Onset Date Comments Dizziness 02/15/2019 Encounter Details Date Type Department Care Team (Late st Contact Info) Description 02/15/2019 Telephone [facility] ([facility] ENT [address] [facility] [address] [place] [address] [place] [phone] Darsahna Toth MD [address] [place] [address] Dizziness Social History Tobacco Use Types Packs/Day Years Used Date Smoking Tobacco: Never Smokeless Tobacco: Never Alcohol Use Standard Drinks/Week Comments Yes 0 (1 standard drink = 0.6 oz pur e alcohol) Comments Unknown Sex and Gender Information Value Date Recorded Sex Assigned at Not on file 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 She said she will stick with Xanax and Meclizine and see you on Thursday. I told her if she got too bad to go to the ER. She said she understood. ----- Message from Darshana Toth MD sent at 02/15/2019 1:41 PM CDT ----- Regarding: RE: DELIA PT Contact: Not much to do other than xanax or meclizine for symptom control other than oral steroids which shewas hesitant about given prior side effects. ----- Message ----- From: Gianna Landry MA Sent: 02/15/2019 1:26 PM To: Darshana Toth MD Subject: FW: DELIA [place], This patient called back asking you to call her again. I returned her call. She is wanting to know what to take between now and Thursday. She is taking Meclizine and has tried Xanax in the past with poor results. Please advise and I can return her call. ----- Message ----- From: Madhuri Franco Sent: 02/15/2019 1:12 PM To: Gianna Landry MA, Madhuri Franco, # Subject: RE: DELIA PT The patient states that Dr. Toth just called her and she is wanting to ask him a question and is asking for a call back. Thanks! ----- Message ----- From: Madhuri Franco Sent: 02/15/2019 8:07 AM To: Gianna Landry MA, [facility] Subject: DELIA KENDALL Good morning This patient is c/o a Menieres flare up and is asking for advice. Please give her a call.Thanks! documented in this encounter Plan of Treatment Not on file documented as of this encounter Visit Diagnoses Not on filedocumented in this encounter Care Teams Geomorphology Teacher Relationship Specialty Start Date End Date Rg Read MD PCP - General 06/21/13 04/25/20 documented as of this encounter
--- OUTSIDE RECORDS SUMMARY | 2024-07-12 09:00 | XMS_ITS | Encounter Summary ---
Author Organization [facility] Address [address] [place] [address] Phone Care Team Providers Care Alarm Investigator Name Role Phone Rg Read MD Primary Care Provider [phone] Reason for Visit * Reason Comments Earmold Pick-up Encounter Details Date Type Department Care Team (Latest Contact Info) Description 01/18/2018 10:45 AM CDT Procedure visit [facility] Otolaryngology [address] [facility] [address] [place] [address] Anahy Frances Au.D. 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 - 01/18/2018 10:45 AM CDT [facility] extended trial to 03-04-2018 documented in this encounter Procedure Notes * Anahy Frances Au.D. - 01/18/2018 10:45 AM CDT Procedures Macie Briseno [id number] 01/18/18 Earmold crop picker right ear Patient reported in the afternoon roaring tinnitus right ear and removes aid and it stops and does not seem to be aid related. After a while reinserts aid and the tinnitus is gone. Would like volume turned down on both aids 3 steps Will be having back surgery and cannot return for f/u till 6 weeks ASSESSMENT: Replaced right earmold Turned both aids down 3 steps overall. Suggested patient turn right aid on and off when roaring occurs and report if problem is resolved with roaring as this would suggest the problem is with the aid. Requested from [facility] that trial be extended for 6 weeks PLAN/RECOMMENDATIONS: 5 week HAA documented in this encounter Plan of Treatment Not on file documented as of this encounter Visit Diagnoses Diagnosis Tinnitus of both ears- Primary Unspecified tinnitus Sensorineural hearing loss (SNHL) of both ears documented in this encounter Care Teams Alarm Investigator Relationship Specialty Start Date End Date Rg Read MD PCP - General 06/21/13 04/25/20 documented as of this encounter
--- OUTSIDE RECORDS SUMMARY | 2024-07-12 09:00 | XMS_ITS | Encounter Summary ---
Author Organization [facility] Address [address] [place] [address] Phone Care Team Providers Care Imaging Scheduler Name Role Phone Rg Read MD Primary Care Provider [phone] Encounter Details Date Type Department Care Team (Late st Contact Info) Description 02/15/2018 Telephone [facility] Otolaryngology [address] [facility] [address] [place] [phone] Juan Carlos Jackson MD [address] [place] [phone] Social History Tobacco Use Types Packs/Day Years Used Date Smoking Tobacco: Never Smokeless Tobacco: Never Alcohol Use Standard Drinks/Week Comments Yes 0 (1 standard drink = 0.6 oz pur e alcohol) Comments Unknown Sex and Gender Information Value Date Recorded Sex Assigned at Not on file 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 She was concerned it was heart related. Everything checked out fine so she was calling to seeif this was Menieres related. I let Sunita know it did not sound Menieres like, but to get some rest and see how she is. She will let us know if she gets worse or symptoms change. documented in this encounter Plan of Treatment Not on file documented as of this encounter Visit Diagnoses Not on filedocumented in this encounter Care Teams Imaging Scheduler Relationship Specialty Start Date End Date Rg Read MD PCP - General 06/21/13 04/25/20 documented as of this encounter
--- OUTSIDE RECORDS SUMMARY | 2024-07-12 09:00 | XMS_ITS | Encounter Summary ---
Author Organization [facility] Care Team Providers Care Cloth Framer Name Role Phone Rg Read MD Primary Care Provider [phone] Encounter Details Date Type Department Care Team (Latest Contact Info) Description 05/24/2019 Travel Social History Tobacco Use Types Packs/Day Years Used Date Smoking Tobacco: Never Smokeless Tobacco: Never Alcohol Use Standard Drinks/Week Comments Yes 0 (1 standard drink = 0.6 oz pur e alcohol) Comments Unknown Sex and Gender Information Value Date Recorded Sex Assigned at Not on file 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
--- OUTSIDE RECORDS SUMMARY | 2024-07-12 09:00 | XMS_ITS | Encounter Summary ---
Author Organization [facility] School of [facility] Address [address] [place] [address] Phone Care Team Providers Care Piano Sounding Board Matcher Name Role Phone Rg Read MD Primary Care Provider [phone] Reason for Visit * Reason Comments Hearing Aid Check * ENT (Routine) - Closed Specialty Diagnoses / Procedures Referred By Gigi orosco Referred To Contact Audiology Diagnoses HEARING AID CHECK Procedures HEARING AID CHECK Rg Read MD Phone: tel: fax: Anahy Frances Au.D. [address] [facility] [place] [address] Phone: tel: fax: Referral ID Status Reason Start Date Expiration Date Visits Re quested Visits Authorized [id number] Closed 03/15/2018 09/24/2019 1 1 Encounter Details Date Type Department Care Team (Latest Contact Info) Description 03/15/2018 4:00 PM CDT Procedure visit [facility] Otolaryngology [address] [facility] [address] [place] [id number] Anahy Frances Au.D. 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 - 03/15/2018 4:00 PM CDT Procedures Macie Briseno [id number] 03/15/18 Per patient this aid has not had any problems with surging. Would like RC dex added ASSESSMENT: Informed patient bright colors are still not available. Have dark blue - patient would like dark blue and would like to switch to andreafski green when available. Programmed blue aid to Finn 2 settings and paired RC dex. Patient will try this before adding comdex and virgilio PLAN/RECOMMENDATIONS: 1 week f/u to add comdex and virgilio Will hold ricardo beige aid until next week documented in this encounter Plan of Treatment Not on file documented as of this encounter Visit Diagnoses Diagnosis Sensorineural hearing loss, asymmetrical- Primary documented in this encounter Care Teams Piano Sounding Board Matcher Relationship Specialty Start Date End Date Rg Read MD PCP - General 06/21/13 04/25/20 documented as of this encounter
--- OUTSIDE RECORDS SUMMARY | 2024-07-12 09:00 | XMS_ITS | Encounter Summary ---
Author Organization [facility] Address [address] [place] [address] Phone Care Team Providers Care Grants Director Name Role Phone Rg Reda MD Primary Care Provider [phone] Reason for Visit * Reason Comments Hearing Aid Check * ENT (Routine) - Closed Specialty Diagnoses / Procedures Referred By Gigi t Referred To Contact Audiology Diagnoses ISSUES W/HEARING AID Procedures HEARING AID CHECK Rg Read MD Phone: tel: fax: Anahy Frances Au.D. [address] [facility] [place] [address] Phone: tel: fax: Referral ID Status Reason Start Date Expiration Date Visits Re quested Visits Authorized [id number] Closed 09/02/2018 03/13/2020 1 1 Encounter Details Date Type Department Care Team (Latest Contact Info) Description 09/02/2018 11:30 AM REFRACTORY TILE HELPER Procedure visit [facility] Otolaryngology [address] [facility] [address] [place] [phone] Anahy Frances Au.D. [address] [facility] [place], [place] [id number] Sensorineural hearing loss, asymmetrical (Primary Dx) Social History Tobacco Use Types Packs/Day Years Used Date Smoking Tobacco: Never Smokeless Tobacco: Never Alcohol Use Standard Drinks/Week Comments Yes 0 (1 standard drink = 0.6 oz pur e alcohol) Comments Unknown Sex and Gender Information Value Date Recorded Sex Assigned at Not on file Legal Sex Female 9:09 PM REFRACTORY TILE HELPER Gender Identity Not on file Sexual Orientation Lesbian 05/24/2019 9: 06 AM CDT documented as of this encounter Procedure Notes * Anahy Frances Au.D. - 09/02/2018 11:30 AM CST Procedures Macie Briseno [id number] 09/02/18 Patient reported: feedback from left aid = went to [facility] for longer wire but feed back persists ASSESSMENT: No internal feedback Otoscopy: no significant cerumen either ear Electroacoustic analysis was performed and revealed: left hearing aid(s) - working within specifications set on Test Mode/F.O.G Hearing aid programming changes: Ran feedback test - patient reported less feedback. PLAN/RECOMMENDATIONS: Return as scheduled ACTORY TILE HELPER documented in this encounter Plan of Treatment Not on file documented as of this encounter Visit Diagnoses Diagnosis Sensorineural hearing loss, asymmetrical- Primary documented in this encounter Care Teams Grants Director Relationship Specialty Start Date End Date Rg Read MD PCP - General 06/21/13 04/25/20 documented as of this encounter
--- OUTSIDE RECORDS SUMMARY | 2024-07-12 09:00 | XMS_ITS | Encounter Summary ---
Author Organization [facility] Address [address] [place] [address] Care Team Providers Care Seafood Fisherman Name Role Phone Rg Read MD Primary Care Provider [phone] Encounter Details Date Type Department Care Team (Latest Contact Info) Description 05/26/2019 3:17 PM CDT - 05/26/2019 3:18 PM CDT Hospital Encounter [facility] [address] [place] [address] Discharge Disposition: Discharge to home or self care Social History Tobacco Use Types Packs/Day Years Used Date Smoking Tobacco: Never Smokeless Tobacco: Never Alcohol Use Standard Drinks/Week Comments Yes 0 (1 standard drink = 0.6 oz pur e alcohol) Comments Unknown Sex and Gender Information Value Date Recorded Sex Assigned at Not on file 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 ??There will be no report generated by a [facility] Radiologist. Narrative [facility] - 05/26/2019 3:17 PM CDT EXAMINATION: ??Images For Reference Purposes Only us Kyler Hunt MD IMG CT PROCEDURES Final Res ult [facility] documented in this encounter Visit Diagnoses Not on filedocumented in this encounter Care Teams Seafood Fisherman Relationship Specialty Start Date End Date Rg Read MD PCP - General 06/21/13 04/25/20 documented as of this encounter
--- OUTSIDE RECORDS SUMMARY | 2024-07-12 09:00 | XMS_ITS | Encounter Summary ---
Author Organization [facility] Address [address] [place] [address] Phone Care Team Providers Care Certified Respiratory Therapist Name Role Phone Rg Read MD Primary Care Provider [phone] Reason for Referral * Diagnostic Imaging (Routine) - Closed Specialty Diagnoses / Procedures Referred By Contac t Referred To Contact Diagnoses Spinal deformity Procedures XR Scoliosis Ap and Lateral Kyler Hunt MD [address] [facility] [place] [address] Phone: tel: fax: [facility] Referral ID Status Reason Start Date Expiration Date Visits Re quested Visits Authorized [id number] Closed 05/18/2019 11/26/2020 1 1 Encounter Details Date Type Department Care Team (Late st Contact Info) Description 05/26/2019 7:45 AM CDT Office Visit [facility] Orthopaedic Surgery [address] [place] [address] 6th [place] [address] [place] [id number] Kyler Hunt MD [address] [facility] [address] [place] [address] Spinal deformity (Primary Dx); History of spinal fusion for scoliosis; Other secondary kyphosis, thoracolumbar region; Spinal stenosis of lumbar region with neurogenic claudication; Late effects of spine fusion Social History Tobacco Use Types Packs/Day Years Used Date Smoking Tobacco: Never Smokeless Tobacco: Never Alcohol Use Standard Drinks/Week Comments Yes 0 (1 standard drink = 0.6 oz pur e alcohol) Comments Unknown Sex and Gender Information Value Date Recorded Sex Assigned at Not on file 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 Gender Identity Not on file Sexual Orientation Lesbian 05/24/2019 9: 06 AM CDT documented as of this encounter Last Filed Vital Signs Vital Sign Reading Time Taken Comments Blood Pressure - - Pulse - - Temperature - - Respiratory Rate - - Oxygen Saturation - - Inhaled Oxygen Concentration - - Weight 77.1 kg (170 lb) 05/26/2019 8:08 AM CDT Height 162.6 cm (5' 4 ) 05/26/2019 8:08 AM CDT Body Mass Index 29.18 05/26/2019 8:08 AM CDT documented in this encounter Progress Notes * Kyler Hunt MD - 05/26/2019 12:00 AM CDT NEW PATIENT VISIT HISTORY OF PRESENT ILLNESS 72+10-year-old female with dramatic increase in back pain and leg pain over the last few months. Says both legs feel numb down to her toes and back pain and leg pain get worse when she walks distances. Had an L4 to sacrum instrumented fusion by Dr. Henry in December 2016 and had revision up to L3 by Dr. Henry in January 2018. Now has severe breakdown and severe spinal stenosis at L2-L3. Takes Voltarenand hydrocodone 2-3 times a day. Tried a Medrol Dosepak at one point. See the new patient questionnaire noted and charted in Epic that I extensively reviewed today. 05/05 desire for surgery. Rates pain 7. Has done physical therapy, TENS, narcotics, anti- inflammatories, steroid injections. Pain diagram: lumbar spine and both legs down to feet. 75% back pain, 25% leg pain; 40% left leg, 60% right leg. Oswestry score is 58. NRS back pain 8, leg pain 7; left leg 4, right leg 7. Here today with herspouse. They live in [place], [place]. PAST MEDICAL HISTORY Anxiety, depression, seasonal allergies, bilateral Meniere disease, microvascular angina. Denies cancers, strokes, heart attacks, seizures, diabetes. PAST SURGICAL HISTORY Left hip replacement by Dr. An 2013; right hip replacement by Dr. An 2014; L4 to sacrum instrumented fusion by Dr. Henry December 2016; revision instrumented fusion L3-L4 by Dr. Henry January 2018. No problems with anesthesia. 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 No smoking. Social alcohol. Has tried medical marijuana creams and salves. FAMILY HISTORY No stenosis, kyphosis, spondylolisthesis REVIEW OF SYSTEMS Lumbar back pain, leg tingling; malaise/fatigue, weakness, tinnitus, leg swelling, shortness of breath, constipation, falls, easy bruising, environmental allergies, depression PHYSICAL EXAMINATION General: 65?? , 170#. Looks her stated age. In no distress. HEENT: within normal limits. No facial dysgenesis or masses. Skin: well healed midline lumbar scar. Implants are not prominent. Musculoskeletal Spine: overall coronal and sagittal balance pretty good. May be very slightly pitched forward. Walks a bit like she is walking on glass or eggshells, but otherwise walks okay. Not myelopathic. Neurologic: grade 5 motors in lower extremities. Able to raise up on heels, raise up on her toes, reach up for the ceiling. No clonus. No long tract signs. Negative straight leg raising. Central nervous system: cranial nerves III, IV, , XI, XII intact. Musculoskeletal Nonspine: reasonable range of motion of shoulders, hips and knees. Pulmonary: respirations good. Not short of breath or out of breath walking in the room. Abdomen: benign, nontender. No deformities or masses. Substantial girth. Cardiovascular: reasonable temperature/turgor of lower extremities. No substantial evidence of arterial or venous pathologies. Mental health: affect, behavior, understanding seem good. I went over the patient with Thalia. REVIEW OF X-RAYS/STUDIES Reviewed a CAT scan from 01/25/19 and MRI from 05/10/19. CAT scan shows the segment above, L2-L3, does not look too bad. Can see a bit of disc bulging and a bit of spinal stenosis, but not too bad. MRIshows more substantial collapse and very severe spinal stenosis at L3-L4. EOS films show pedicle screw implants L3 to L5, interbody L3 to the sacrum. Has what looks like a competitive fusion from L3 to the sacrum and very severe disc degeneration, a bit of kyphosis and a bit of coronal subluxation at L3-L4. Looks like when they went up to L3 they got into the L2 lamina a bit, at least on one side, so L2-L3 on the right side predisposes to some breakdown. I went over all this with the patient ingreat detail. I personally reviewed the studies, not just a radiology reading. IMPRESSION/DIAGNOSES Very severe spinal stenosis, very severe disc degeneration, a bit of kyphosis and a bit of coronal subluxation at L3-L4 TREATMENT AND PLAN Told her I thought her problem was severe enough that she was not going to benefit from medications, physical therapy or injections. Told her she was going to need surgery, at a minimum instrumented fusion carried up 1 level to L2. One option would be very carefully preserving all the proximal attachments and proximal lamina of L2. The distal lamina has been invaded somewhat, but the proximal lamina has not. That would reduce the likelihood of breakdown above. Another option would be to go up to T11. She seemed very concerned if they go up to T11 she would lose a lot of motion and it would dee much bigger surgery. I told her the surgery going up to T11 would be bigger but not massively bigger. I explained if she got 10 opinions, 5 surgeons would say just go up to L2 and 5 surgeons would say go up to T11. I told her my vote would be going up to T11 based on everything I see today. She does have a bit of kyphosis at T11-T12, so going up to T11 would be good. I explained going up to [id number] not guarantee the segment above would break down, but it is somewhat less likely than stopping in the lumbar spine. She is a bit predisposed to breakdown at L2-L3 because there was removal of the connection on the left side at L2-L3, maybe not the L2 lamina but the proximal aspect of L3 lamina was removed. A bit plus/minus whether to just re-instrument from T11 to L5 or just re-instrument the sacrum and pelvis. My guess is she probably never had the pelvis instrumented. To some extent, doing pedicle screw implants from T11 to L5 might predispose her sacrum to break, but probably not because she has an interbody fusion at L5-S1, so probably not necessary to put in new sacral and iliac screws. All points of discussion with the surgeon she sees. Explained I have stopped doing surgeries and we would get her in to see one of my partners within the next few weeks. She wants to have the surgery done before the end of the year and wanted to know how to make it for 2 more months. Explained that Voltaren is good, 2-3 hydrocodone a day is okay, and she might benefit from gabapentin. We went over in very great detail how to take gabapentin. She seems very willing to proceed and very coop erative in general. TIME MANAGEMENT Time spent with the patient 60 minutes. Greater than 50% of total time was spent face to face counseling and coordinating care with the patient. Patient questionnaire, medication list and other records documented in [facility] have been thoroughly reviewed by Dr. Hunt in conjunction with this dictation. MD Myrtle Luis Distinguished Professor of Orthopaedic Surgery Professor of Neurological Surgery Artificial Breeding Distributor, Pediatric/Adult Spinal Deformity Service Artificial Breeding Distributor, [facility] Spine Fellowship Ticker Maintainer, [facility]/RO1 A Multi-Centered Prospective Study of Quality of Life in Adult Scoliosis, 2519-5360 Past Scoliosis Research Society President, [id number] KHB/ps cc: Rg Read MD Dictated but not read. May be subject to sandwich maker variances. documented in this encounter Plan of Treatment Not on file documented as of this encounter Results * XR Scoliosis Ap and Lateral (05/26/2019 7:31 AM CDT) Anatomical Region Laterality Modality Spine N/A Computed Radiogr aphy 05/26/2019 7:36 AM CDT Impressions 05/26/2019 7:36 AM CDT PRIOR POSTERIOR INSTRUMENTED L3-L5 AND ANTERIOR L3-S1 FUSIONS. NEUTRAL TRUNCAL BALANCE. Electronically signed by: Dereck Soni M.D. Narrative 05/26/2019 7:36 AM CDT XR SCOLIOSIS AP AND LATERAL HISTORY: Other congenital malformations of spine, not associated with scoliosis. Spinal deformity. COMPARISON: None available. FINDINGS: AP and lateral standing projections of the spine and lower extremities were obtained on the EOS system. The patient is status post posterior instrumented L3-L5 fusion with anterior discectomies and interbody fusions from L3-4 through L5-S1. Mild retrolisthesis of L2 on 3 is present. A mild dextroconvex scoliosis is present with apex at T12. Vertebral heights are preserved. There is neutral coronal and sagittal truncal balance. There is no pelvic obliquity. Bilateral hip arthroplasties are incidentally noted. Procedure Note Dereck Soni MD - 05/26/2019 XR SCOLIOSIS AP AND LATERAL HISTORY: Other congenital malformations of spine, not associated with scoliosis. Spinal deformity. COMPARISON: None available. FINDINGS: AP and lateral standing projections of the spine and lower extremities were obtained on the EOS system. The patient is status post posterior instrumented L3-L5 fusion with anterior discectomies and interbody fusions from L3-4 through L5-S1. Mild retrolisthesis of L2 on 3 is present. A mild dextroconvex scoliosis is present with apex at T12. Vertebral heights are preserved. There is neutral coronal and sagittal truncal balance. There is no pelvic obliquity. Bilateral hip arthroplasties are incidentally noted. IMPRESSION: PRIOR POSTERIOR INSTRUMENTED L3-L5 AND ANTERIOR L3-S1 FUSIONS. NEUTRAL TRUNCAL BALANCE. Electronically signed by: Dereck Soni M.D. 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
--- OUTSIDE RECORDS SUMMARY | 2024-07-12 09:00 | XMS_ITS | Encounter Summary ---
Author Organization [facility] Address [address] [place] [address] Phone Care Team Providers Care Cash Applications Coordinator Name Role Phone Rg Read MD Primary Care Provider [phone] Reason for Visit * Reason Comments Hearing Aid Check * ENT (Routine) - Closed Specialty Diagnoses / Procedures Referred By Contac t Referred To Contact Audiology Diagnoses HEARING AID CHECK/LOANER? Procedures HEARING AID CHECK Rg Read MD [address] [place] [address] Phone: tel: fax: Anahy Frances Au.D. [address] [address] Phone: tel: fax: Referral ID Status Reason Start Date Expiration Date Visits Re quested Visits Authorized [id number] Closed 03/18/2019 09/26/2020 1 1 Encounter Details Date Type Department Care Team (Latest Contact Info) Description 03/18/2019 9:30 AM CDT Procedure visit [facility] Otolaryngology [address] [facility] [address] [place] [phone] Anahy Frances Au.D. 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 - 03/18/2019 9:30 AM CDT Procedures Macie Ricky Briseno [id number] 03/18/19 Patient reported: Right aid quit working - thinks it may be the wire. Wonders about going to [facility] for this type of problem ASSESSMENT: Replaced size 2m home theater specialist wire in right hearing aid Informed patient yes she could go to [facility] PLAN/RECOMMENDATIONS: Return as scheduled documented in this encounter Plan of Treatment Not on file documented as of this encounter Visit Diagnoses Diagnosis Sensorineural hearing loss (SNHL) of both ears- Primary documented in this encounter Care Teams Cash Applications Coordinator Relationship Specialty Start Date End Date Rg Read MD PCP - General 06/21/13 04/25/20 documented as of this encounter
--- OUTSIDE RECORDS SUMMARY | 2024-07-12 09:00 | XMS_ITS | Encounter Summary ---
Author Organization [facility] Healthcare Address [address] [place] [address] Care Team Providers Care Thermal Molder Name Role Phone Rg Read MD Primary Care Provider [phone] Reason for Referral * Diagnostic Imaging (Routine) - Closed Specialty Diagnoses / Procedures Referred By Contac t Referred To Contact Diagnoses Spinal deformity Procedures XR Scoliosis Ap and Lateral Kyler Hunt MD [address] [facility] [place] [address] Phone: tel: fax: [facility] Referral ID Status Reason Start Date Expiration Date Visits Re quested Visits Authorized [id number] Closed 05/18/2019 11/26/2020 1 1 Reason for Visit * Diagnostic Imaging (Routine) - Closed Specialty Diagnoses / Procedures Referred By Gigi orosco Referred To Contact Diagnoses Spinal deformity Procedures XR Scoliosis Ap and Lateral Kyler Hunt MD [address] [employer] [facility] [address]12[place], [place] [address] Phone: tel: fax: [facility] Referral ID Status Reason Start Date Expiration Date Visits Re quested Visits Authorized [id number] Closed 05/18/2019 11/26/2020 1 1 Encounter Details Date Type Department Care Team (Latest Contact Info) Description 05/26/2019 7:15 AM CDT - 05/26/2019 3:16 PM CDT Hospital Encounter 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
--- OUTSIDE RECORDS SUMMARY | 2024-07-12 09:00 | XMS_ITS | Encounter Summary ---
Author Organization [facility] Address [address] [place] [address] Phone Care Team Providers Care Adult Probation Officer Name Role Phone Rg Read MD Primary Care Provider Reason for Visit * Reason Comments Hearing Aid Assessment Earmold Encounter Details Date Type Department Care Team (Latest Contact Info) Description 01/07/2018 3:00 PM CDT Procedure visit [facility] Otolaryngology [address] [place] [address] Anahy Frances Au.D. 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 - 01/07/2018 3:00 PM CDT Procedures Macie Briseno [id number] 01/07/18 Picking up new left atul with size 2 P station inspector Patient reported Evoke aid seems to shut down in relation to tv/fans and loud equipment and then gradually increases. Right earmold seems to slip out also. ASSESSMENT: Fitted new left atul and patient reported initially seems much better. Silicone impression taken of right ear without incident with jaw closed (previous impression was jaw open) Otoscopic examination right ear revealed: EACs and tympanic membranes visualized bilaterally. Hearing aid programming changes: Changed station inspector in software for right ear to m . Patient was informed of changes and will note if shut down continues and if so compression will be changed also. PLAN/RECOMMENDATIONS: Call when new earmold arrives documented in this encounter Plan of Treatment Not on file documented as of this encounter Visit Diagnoses Diagnosis Sensorineural hearing loss, asymmetrical- Primary documented in this encounter Care Teams Adult Probation Officer Relationship Specialty Start Date End Date Rg Read MD PCP - General 06/21/13 04/25/20 documented as of this encounter
--- OUTSIDE RECORDS SUMMARY | 2024-07-12 09:00 | XMS_ITS | Encounter Summary ---
Author Organization [facility] Address [address] [place] [address] Phone Care Team Providers Care Recreation Leader Name Role Phone Rg Read MD Primary Care Provider [phone] Reason for Visit * Reason Onset Date Comments Meniere's Disease 02/15/2019 Encounter Details Date Type Department Care Team (Late st Contact Info) Description 02/15/2019 Telephone [facility] - [facility] ENT [address] [facility] Advanced Medicine 11th [place] [address] [place] [address] Darshana Toth MD [address] [place], [place] [id number] Meniere's Disease Social History Tobacco Use Types Packs/Day Years Used Date Smoking Tobacco: Never Smokeless Tobacco: Never Alcohol Use Standard Drinks/Week Comments Yes 0 (1 standard drink = 0.6 oz pur e alcohol) Comments Unknown Sex and Gender Information Value Date Recorded Sex Assigned at Not on file 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 Please add to my schedule. No need to order steroids. ----- Message ----- From: Gianna Landry MA Sent: 02/15/2019 8:17 AM To: Darshana Toth MD Subject: FW: DELIA PT 2nd call. Please advise. ----- Message ----- From: Madhuri Franco Sent: 02/15/2019 8:07 AM To: Gianna Landry MA, [facility] Subject: DELIA PT Good morning This patient is c/o a Menieres flare up and is asking for advice. Please give her a call.Thanks! documented in this encounter Plan of Treatment Not on file documented as of this encounter Visit Diagnoses Not on filedocumented in this encounter Care Teams Recreation Leader Relationship Specialty Start Date End Date Rg Read MD PCP - General 06/21/13 04/25/20 documented as of this encounter
--- OUTSIDE RECORDS SUMMARY | 2024-07-12 09:00 | XMS_ITS | Encounter Summary ---
Author Organization [facility] Address [address] [place] [address] Phone Care Team Providers Care Bone Density Technician Name Role Phone Rg Read MD Primary Care Provider [phone] Reason for Visit * Reason Comments Hearing Aid Check * ENT (Routine) - Closed Specialty Diagnoses / Procedures Referred By Contwolfgang t Referred To Contact Audiology Diagnoses HAC-put on longer wire Procedures HEARING AID CHECK Rg Read MD Phone: tel: fax: Iwona Davis Au.D. [address] [address] Phone: tel: fax: Referral ID Status Reason Start Date Expiration Date Visits Re quested Visits Authorized [id number] Closed 08/26/2018 03/06/2020 1 1 Encounter Details Date Type Department Care Team (Latest Contact Info) Description 08/26/2018 1:00 PM STRAW BOSS Procedure visit [facility] Otolaryngology [address] [facility] 11th [place] [address] [place] [address] Iwona Davis Au.D. [address] [address] Sensorineural hearing loss, asymmetrical (Primary Dx) Social History Tobacco Use Types Packs/Day Years Used Date Smoking Tobacco: Never Smokeless Tobacco: Never Alcohol Use Standard Drinks/Week Comments Yes 0 (1 standard drink = 0.6 oz pur e alcohol) Comments Unknown Sex and Gender Information Value Date Recorded Sex Assigned at Not on file Legal Sex Female 9:09 PM STRAW BOSS Gender Identity Not on file Sexual Orientation Lesbian 05/24/2019 9: 06 AM CDT documented as of this encounter Procedure Notes * Iwona Herron Au.D. - 08/26/2018 1:00 PM CST Procedures Digna Manuel PATIENT NAME: Macie Briseno : 1945 TYPE OF SERVICE: Hearing Aid Check--Walk-in DATE OF SERVICE: 08/26/2018 PATIENT REPORTS: Ms. Briseno reports her left product development scientist wire is too long. She states her earmold slips out of her ear canal often. TESTS PERFORMED: See: N/A ASSESSMENT: Ms. Briseno's left P2L product development scientist was replaced with a P1L. The patient reported the earmold felt much more secure in her ear. She was pleased with today's services and will return as previously scheduled for a routine hearingaid check with Dr. Anahy Frances. PLAN/RECOMMENDATIONS: Return for hearing aid check as scheduled Continue use of amplification Hearing assistive technology Hearing protection in noise W BOSS documented in this encounter Plan of Treatment Not on file documented as of this encounter Visit Diagnoses Diagnosis Sensorineural hearing loss, asymmetrical- Primary documented in this encounter Care Teams Bone Density Technician Relationship Specialty Start Date End Date Rg Read MD PCP - General 06/21/13 04/25/20 documented as of this encounter
--- OUTSIDE RECORDS SUMMARY | 2024-07-12 09:00 | XMS_ITS | Encounter Summary ---
Author Organization [facility] Address [address] [place] [address] Care Team Providers Care Deer Farmer Name Role Phone Rg Read MD Primary Care Provider [phone] Reason for Visit * Reason Onset Date Comments Sx call 07/09/2017 Encounter Details Date Type Department Care Team (Late st Contact Info) Description 07/09/2017 Telephone [facility] Cardiology [address] [place] [address] Tg Houston MD [address] [place] [address] [address] [place] [address] Sx call Social History Tobacco Use Types Packs/Day Years Used Date Smoking Tobacco: Never Smokeless Tobacco: Never Alcohol Use Standard Drinks/Week Comments Yes 0 (1 standard drink = 0.6 oz pur e alcohol) Comments Unknown Sex and Gender Information Value Date Recorded Sex Assigned at Not on file Legal Sex Female 9:09 PM ELECTRICAL ELECTRONICS ENGINEERS Gender Identity Not on file Sexual Orientation Lesbian 05/24/2019 9: 06 AM CDT documented as of this encounter Miscellaneous Notes * Telephone Encounter - Jayda Poole - 07/10/2017 9:51 AM CST Sent response through [employer]. Told the pt's to call back with any questions she may have. TRICAL ELECTRONICS ENGINEERS * Telephone Encounter - Tg Houston MD - 07/09/2017 4:42 PM ELECTRICAL ELECTRONICS ENGINEERS Stress test results are normal. This is very reassuring. I suspect that her chest discomfort was musculoskeletal rather than cardiac. On the point of care testing that we due for lipids in the office, we are doing that mostly to get the LDL which is not very much affected by the fact that the patient's are nonfasting. Triglycerides, however, are affected by being in the nonfasting state, so I generally dismissed mild triglycerideelevations. Fasting triglycerides have been good in the past, so I would not be too worried about a nonfasting triglyceride of 202. Sugars are the main contributor to triglyceride elevation. Please call her. TRICAL ELECTRONICS ENGINEERS * Telephone Encounter - Yanni Elias - 07/09/2017 3:09 PM CST Pt also sent a mychart question- please advise. TRICAL ELECTRONICS ENGINEERS * Telephone Encounter - Yanni Elias - 07/09/2017 3:05 PM CST ----- Message from Macie Briseno sent at 07/09/2017 9:48 AM ELECTRICAL ELECTRONICS ENGINEERS ----- Regarding: Test Results Question Contact: In my most recent lipid test I see that my triglycerides are much higher (200+) than previous tests. Is this something to be concerned about? What is the best way to lower them? Thanks, Sharon Briseno TRICAL ELECTRONICS ENGINEERS * Telephone Encounter - Yanni Elias - 07/09/2017 9:32 AM CST Pt had a nuclear stress test yesterday- She felt fine in the afternoon after the test but by the evening she had pain in her chest- she said it felt more muscular and just had more of an ache in her chest. She noticed more tightness/discomfort when she laid down. Please advise. TRICAL ELECTRONICS ENGINEERS documented in this encounter Plan of Treatment Not on file documented as of this encounter Visit Diagnoses Not on filedocumented in this encounter Care Teams Deer Farmer Relationship Specialty Start Date End Date Rg Read MD PCP - General 06/21/13 04/25/20 documented as of this encounter
--- OUTSIDE RECORDS SUMMARY | 2024-07-12 09:00 | XMS_ITS | Encounter Summary ---
Author Organization [facility] Address [address] [place] [address] Phone Care Team Providers Care Fundraiser Name Role Phone Rg Read MD Primary Care Provider Reason for Visit * Reason Comments Hearing Aid Assessment * ENT (Routine) - Closed Specialty Diagnoses / Procedures Referred By Gigi orosco Referred To Contact Audiology Diagnoses HEARING AID CHECK Procedures HEARING AID CHECK Rg Read MD Phone: tel: fax: Anahy Frances Au.D. [address] [facility] [place] [address] Phone: tel: fax: Referral ID Status Reason Start Date Expiration Date Visits Re quested Visits Authorized [id number] Closed 02/23/2018 09/04/2019 1 1 Encounter Details Date Type Department Care Team (Latest Contact Info) Description 02/23/2018 3:00 PM CDT Procedure visit [facility] Otolaryngology [address] [place] [id number] Anahy Frances Au.D. [address] [facility] [place], [place] [id number] Sensorineural hearing loss, asymmetrical (Primary Dx) Social History Tobacco Use Types Packs/Day Years Used Date Smoking Tobacco: Never Smokeless Tobacco: Never Alcohol Use Standard Drinks/Week Comments Yes 0 (1 standard drink = 0.6 oz pur e alcohol) Comments Unknown Sex and Gender Information Value Date Recorded Sex Assigned at Not on file Legal Sex Female 9:09 PM POSTAL SERVICE CLERK Gender Identity Not on file Sexual Orientation Lesbian 05/24/2019 9: 06 AM CDT documented as of this encounter Procedure Notes * Anahy Frances Au.D. - 02/23/2018 3:00 PM CDT Procedures Digna Metcalf CCC-A PATIENT: Macie Briseno : 1945 TYPE OF SERVICE: Hearing Aid Assessment DATE OF SERVICE: 02/23/2018 Patient reports: sharp sounds from kitchen are better; however the loud noise like a fan that occurs about 4pm each day continues. Changing program doesn't help. Turning aid on and off doesn't help. Adjusting aid doesn't help. Unless volume is decreased and then cannot hear. This only happens with Evoke hearing aid - right ear. Assessment: Phone call to [facility] - audiology. Audiology reviewed settings in Dream 330 Fusion (left ear) and Evoke [address] Fusion (right ear). There were no significant differences. Audiology suggested file may be corrupt and suggested new file be made and perhaps a p dressmaking teacher may help also. Due to hearing aid trial expiring in a couple of days it was suggested a new aid with P dressmaking teacher beordered to determine if problem persists. Recommendations: Schedule HAF in 1 week documented in this encounter Plan of Treatment Not on file documented as of this encounter Visit Diagnoses Diagnosis Sensorineural hearing loss, asymmetrical- Primary documented in this encounter Care Teams Fundraiser Relationship Specialty Start Date End Date Rg Read MD PCP - General 06/21/13 04/25/20 documented as of this encounter
--- OUTSIDE RECORDS SUMMARY | 2024-07-12 09:00 | XMS_ITS | Encounter Summary ---
Author Organization [facility] Address [address] [place] [address] Phone Care Team Providers Care Private Branch Exchange Repairer Name Role Phone Rg Read MD Primary Care Provider [phone] Reason for Visit * Reason Comments Meniere's Disease * ENT (Routine) - Closed Specialty Diagnoses / Procedures Referred By Gigi orosco Referred To Contact Otolaryngology Diagnoses F/U MENIERE'S Procedures RETURN Referral, Self Juan Carlos Jackson MD [address] [address] Phone: tel: fax: Referral ID Status Reason Start Date Expiration Date Visits Re quested Visits Authorized [id number] Closed 10/07/2018 04/17/2020 1 1 Encounter Details Date Type Department Care Team (Late st Contact Info) Description 10/07/2018 1:30 PM CDT Office Visit [facility] - [facility] ENT [address] [facility] Advanced Medicine 11th [place] [address] [place] [address] Juan Carlos Jackson MD [address] [phone] Meniere's disease of both ears (Primary Dx) Social History Tobacco Use Types Packs/Day Years Used Date Smoking Tobacco: Never Smokeless Tobacco: Never Alcohol Use Standard Drinks/Week Comments Yes 0 (1 standard drink = 0.6 oz pur e alcohol) Comments Unknown Sex and Gender Information Value Date Recorded Sex Assigned at Not on file Legal Sex Female 9:09 PM LUMBER CHAIN OFFBEARER Gender Identity Not on file Sexual Orientation Lesbian 05/24/2019 9: 06 AM CDT documented as of this encounter Progress Notes * Juan Carlos Jackson MD - 10/07/2018 1:30 PM CDT [facility] Department of Otolaryngology - Head & Neck Surgery Return Office Visit 10/07/2018 Juan Carlos Jackson MD, FACS, [facility] MA: Mary Loveerton Primary Care Provider: Rg Read MD Name: Macie Briseno Date of : 1945 Chief Complaint: Follow-up bilateral Meniere's disease, left vestibular nerve section, suspected right-sided BPPV. HISTORY OF PRESENT ILLNESS: Patient returns to the office for follow-up of bilateral Meniere's disease with suspicion of BPPV on the right side. She has had a nerve section on the left. She has had no severe vertigo spells within the last few months. She feels her hearing is decreasing on the right. She wears hearing aids bilaterally. Past Medical History: Diagnosis Date ??? Auditory vertigo Meniere's disease Past Surgical History: Procedure Laterality Date ??? BACK SURGERY lower back ??? CHOLECYSTECTOMY Cholecystectomy ??? OTHER SURGICAL HISTORY 1999 Sectioning of left vesibular nerve Allergies Allergen Reactions ??? Sulfa (Sulfonamide Antibiotics) Current Outpatient Medications: ??? ALPRAZolam (XANAX) 0.25 mg tablet, Take 2 tablets (0.5 mg total) by mouth 2 (two) times a day as needed for anxiety., Disp: 60 tablet, Rfl: 1 ??? b complex vitamins tablet, take 1 Tablet by Oral route every day, Disp: 0, Rfl: 0 ??? cholecalciferol (VITAMIN D3) 5,000 unit tablet, take 1 Tablet by Oral route once, Disp: 0, Rfl:0 ??? coenzyme Q10 (CO Q-10) 100 mg capsule, take 1 Capsule by Oral route once, Disp: 0, Rfl: 0 ??? diclofenac DR (VOLTAREN) 75 mg EC tablet, take 1 tablet (75MG) by oral route 2 times every day,Disp: , Rfl: 0 ??? diltiazem (TIAZAC) 180 mg 24 hr capsule, take 1 capsule (180MG) by oral route every day, Disp: 90, Rfl: 3 ??? fexofenadine-pseudoephedrine (THELMA-D 12 HOUR) 60-120 mg per 12 hr tablet, take 1 tablet by oral route 2 times every day as needed, Disp: , Rfl: 0 ??? fluticasone (FLONASE) 50 mcg/actuation nasal spray, inhale 1 spray (50MCG) by intranasal route every day in each nostril, Disp: , Rfl: 0 ??? omega-3 fatty acids-fish oil (OMEGA 3 FISH OIL) 684-1,200 mg capsule,delayed release(DR/EC), take 1 Capsule by Oral route 2 times every day, Disp: , Rfl: 0 ??? pravastatin (PRAVACHOL) 10 mg tablet, Take 1 tablet (10 mg total) by mouth daily., Disp: 90 tablet, Rfl: 3 ??? sertraline (ZOLOFT) 50 mg tablet, take 1 tablet by oral route every day, Disp: 0, Rfl: 0 ??? triamterene-hydroCHLOROthiazide (MAXZIDE,DYAZIDE) 37.5-25 mg per tablet, take 1 tablet by oral route every day, Disp: , Rfl: 0 Social History Socioeconomic History ??? Marital status: Spouse name: Not on file ??? Number of children: Not on file ??? Years of education: Not on file ??? Highest education level: Not on file Occupational History ??? Not on file Social Needs ??? Financial resource strain: Not on file ??? Food insecurity: Worry: Not on file Inability: Not on file ??? Transportation needs: Medical: Not on file Non-medical: Not on file Tobacco Use ??? Smoking status: Never Smoker ??? Smokeless tobacco: Never Used Substance and Sexual Activity ??? Alcohol use: Yes ??? Drug use: No ??? Sexual activity: Not on file Lifestyle ??? Physical activity: Days per week: Not on file Minutes per session: Not on file ??? Stress: Not on file Relationships ??? Social connections: Talks on phone: Not on file Gets together: Not on file Attends jainism service: Not on file Active member of club or organization: Not on file Attends meetings of clubs or organizations: Not on file Relationship status: Not on file ??? Intimate partner violence: Fear of current or ex partner: Not [...] Constitutional: Patient is cooperative oriented and alert. Her tympanic membranes are clear on both sides. She has no spontaneous or gaze evoked nystagmus. She has normal oculomotor function. She has a positive Halmagyi head impulse sign side to center to the left. Her Cat [place]-Hallpike testing is negative for BPPV. She can stand on firm surface eyes closed and on complaint foam surface eyes closed. Her gait is stable. IMPRESSION: Bilateral Meniere's disease stable. Her hearing loss is progressing on the right side. We will show her audiogram to the cochlear implant team and see whether not she is a candidate for implantation on the left given the decreased hearing thresholds on the right. There is no evidence today of BPPV. PLAN: See above. Follow up 6 months. Thank you for allowing me to participate in the care of Ms. Briseno. Should you have any questions or concerns, please do not hesitate to contact my office. Warm regards, Juan Carlos Jackson MD, FACS, FRCS Professor and Director [facility] Department of Otolaryngology - Head & Neck Surgery [facility] documented in this encounter Plan of Treatment Not on file documented as of this encounter Visit Diagnoses Diagnosis Meniere's disease of both ears- Primary documented in this encounter Discontinued Medications Medication Sig Discontinue Reason Start Date End Da te diclofenac DR (VOLTAREN) 75 mg EC tablet take 1 tablet (75MG) by oral route 2 times every day 06/15/2012 10/07/2018 pravastatin (PRAVACHOL) 10 mg tablet Take 1 tablet (10 mg total) by mouth daily. 04/13/2017 10/07/2018 sertraline (ZOLOFT) 50 mg tablet take 1 tablet by oral route every day 06/27/2014 10/07/2018 documented as of this encounter Historical Medications * This list may reflect changes made after this encounter. atorvastatin (LIPITOR) 20 mg tabletIndications :hyperlipidemia Take 1 tablet (20 mg total) by mouth nightly 07/29/2018 venlafaxine (EFFEXOR) 75 mg tablet TAKE TWO TABLETS BY MOUTH EVERY MORNING, TAKE ONE TABLET BY MOUTH EVERY EVENING 03/15/2018 02/18/2019 added in this encounter Care Teams Private Branch Exchange Repairer Relationship Specialty Start Date End Date Rg Read MD PCP - General 06/21/13 04/25/20 documented as of this encounter
--- OUTSIDE RECORDS SUMMARY | 2024-07-12 09:00 | XMS_ITS | Encounter Summary ---
Author Organization [facility] Address [address] [place] [address] Care Team Providers Care Dairy Supplies Sales Representative Name Role Phone Rg Read MD Primary Care Provider [phone] Reason for Referral * Diagnostic Imaging (Routine) - Closed Specialty Diagnoses / Procedures Referred By Contac t Referred To Contact Diagnoses Microvascular angina (HCC) Abnormal ECG Procedures NM MPI SPECT (Rest and/or Stress) Multiple Studies Richie Houston MD Phone: tel: fax: [id number] [place] [address] Referral ID Status Reason Start Date Expiration Date Visits Re quested Visits Authorized [id number] Closed 05/25/2019 07/09/2019 5 5 Reason for Visit * Reason Comments Exertional Angina Cardiac Clearance Encounter Details Date Type Department Care Team (Latest Contact Info) Description 05/24/2019 11:30 AM CDT Office [place] [facility] [place] [address] [place] [address] Richie Houston MD [address] [place] [address] Microvascular angina (CMS/HCC) (Primary Dx); Essential hypertension; Dyslipidemia; Abnormal ECG Social History Tobacco Use Types Packs/Day Years Used Date Smoking Tobacco: Never Smokeless Tobacco: Never Alcohol Use Standard Drinks/Week Comments Yes 0 (1 standard drink = 0.6 oz pur e alcohol) Comments Unknown Sex and Gender Information Value Date Recorded Sex Assigned at Not on file Legal Sex Female 9:09 PM SALES 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 Gender Identity Not on file Sexual Orientation Lesbian 05/24/2019 9: 06 AM CDT documented as of this encounter Last Filed Vital Signs Vital Sign Reading Time Taken Comments Blood Pressure 144/86 05/24/2019 11:53 AM CDT Pulse 94 05/24/2019 11:53 AM CDT Temperature - - Respiratory Rate - - Oxygen Saturation - - Inhaled Oxygen Concentration - - Weight 77.1 kg (170 lb) 05/24/2019 11:53 AM CDT Height 166.4 cm (5' 5.5 ) 05/24/2019 11:53 AM CD T Body Mass Index 27.86 05/24/2019 11:53 AM CDT documented in this encounter Progress Notes * Richie Houston MD - 05/24/2019 11:30 AM CDT Patient Name: Macie Briseno Provider: Richie Houston MD : 1945 Date of Service: 05/24/2019 Referring: Jacek CHIEF COMPLAINT: Exertional Angina and Cardiac Clearance HISTORY OF PRESENT ILLNESS: 73 y.o. 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 A stress echocardiogram in 2004 was nonischemic, and a Lexiscan MPI on 11/16/2014 was normal with an EF of 83%. She has been managed with calcium channel nayana therapy. She is seen today for the 1st time since June 2017, and presents because she needs clearance for further back surgery. She has been very disabled by back pain, and notices some shortness of breath with exertion, but attributes this to deconditioning. She has had only one episode of exertional chest discomfort. MEDICATIONS: Outpatient Encounter Medications as of 05/24/2019 Medication Sig Dispense Refill ??? ALPRAZolam (XANAX) 0.25 mg tablet Take 2 tablets (0.5 mg total) by mouth 2 (two) times a day asneeded for anxiety 60 tablet 1 ??? atorvastatin (LIPITOR) 20 mg tablet 20 mg daily ??? b complex vitamins tablet take 1 Tablet by Oral route every day 0 0 ??? busPIRone (BUSPAR) 10 mg tablet 10 mg daily ??? cetirizine (ZyrTEC) 10 mg capsule 10 mg daily ??? cholecalciferol (VITAMIN D3) 5,000 unit tablet take 1 Tablet by Oral route once 0 0 ??? coenzyme Q10 (CO Q-10) 100 mg capsule take 1 Capsule by Oral route once 0 0 ??? diclofenac DR (VOLTAREN) 75 mg EC tablet Take 75 mg by mouth 2 (two) times a day ??? diltiazem (TIAZAC) 180 mg 24 hr capsule take 1 capsule (180MG) by oral route every day 90 3 ??? fluticasone (FLONASE) 50 mcg/actuation nasal spray inhale 1 spray (50MCG) by intranasal route every day in each nostril 0 ??? HYDROcodone-acetaminophen (NORCO) 7.5-325 mg per tablet Take 1 tablet by mouth every 8 (eight) hours as needed for pain ??? montelukast (SINGULAIR) 10 mg tablet Take 10 mg by mouth daily ??? omega-3 fatty acids-fish oil (OMEGA 3 FISH OIL) 684-1,200 mg capsule,delayed release(DR/EC) take 1 Capsule by Oral route 2 times every day 0 ??? PARoxetine (PAXIL) 20 mg tablet 1/2 tab daily in the AM for 10 days, then 1 tab daily in the AM. ??? triamterene-hydroCHLOROthiazide (triamterene-hydroCHLOROthiazide) 37.5-25 mg per tablet/capsuleTake 1 tablet/capsule by mouth daily 90 tablet/capsule 3 ??? tiZANidine (ZANAFLEX) 4 mg tablet 4 mg every 8 (eight) hours as needed ??? [DISCONTINUED] AMOXICILLIN 500 mg capsule ??? [DISCONTINUED] ibuprofen (ADVIL,MOTRIN) 600 mg tablet No facility-administered encounter medications on file as of 05/24/2019. REVIEW OF SYSTEMS: General: No fever, chills, malaise or fatigue Eyes: No alterations in visual acuity ENT: No alterations in auditory acuity, no sore throat. Hard of hearing, wears hearing aids Pulmonary: No dyspnea, cough or hemoptysis Cardiac: +chest pain, no orthopnea, PND or palpitations GI: No nausea, vomiting, diarrhea or constipation Musculoskeletal: No myalgias or arthralgias +back pain Skin: no rashes Neuro: No headaches, parathesias or focal neurological complaints Endocrine: No cold or heat intolerance Heme: no excessive bleeding or bruising PHYSICAL EXAM: Vitals: 05/24/19 1153 BP: 144/86 Pulse: 94 Weight: 77.1 kg (170 lb) Height: 166.4 cm (5' 5.5 ) Body mass index is 27.86 kg/m??. General: Well appearing, No pain or [...] or edema Musculoskeletal: no obvious joint deformities. Uses a cane Skin: no obvious rash or bruising Psychiatric: normal affect Neurologic: awake/alert, no focal deficits EKG 05/24/2019 Rate 86 axis +30?? OR 0.14 QRS 0.09 QT 0.38 Normal sinus rhythm Left ventricular hypertrophy Marked ST-T abnormality Compared with 07/08/2017 ST-T abnormality is greater ASSESSMENT & PLAN: Diagnoses and all orders for this visit: Microvascular angina (CMS/HCC) (Primary) Assessment & Plan: Minimally symptomatic on diltiazem. She is not known to have coronary artery disease. Orders: - POCT lipid panel - ECG 12 lead - NM MPI SPECT (Rest and/or Stress) Multiple Studies; Future Essential hypertension Assessment & Plan: Blood pressure today is a bit high, likely because back pain. No medication adjustment Dyslipidemia Assessment & Plan: On chronic lipid lowering therapy with good control. No changes made. Abnormal ECG Assessment & Plan: EKG shows nonspecific ST-T abnormalities which are greater than were seen in June 2017. Based on this change, I have recommended a pharmacologic stress test for preoperative assessment. Clearancebased on results thereof. Orders: - NM MPI SPECT (Rest and/or Stress) Multiple Studies; Future documented in this encounter Miscellaneous Notes * Assessment & Plan Note - Richie Houston MD - 05/24/2019 12:37 PM CDT Associated Problem(s): Abnormal ECG EKG shows nonspecific ST-T abnormalities which are greater than were seen in June 2017. Based on this change, I have recommended a pharmacologic stress test for preoperative assessment. Clearancebased on results thereof. * Assessment & Plan Note - Richie Houston MD - 05/24/2019 12:27 PM CDT Associated Problem(s): Dyslipidemia On chronic lipid lowering therapy with good control. No changes made. * Assessment & Plan Note - Richie Houston MD - 05/24/2019 12:26 PM CDT Associated Problem(s): Essential hypertension (Deleted) Blood pressure today is a bit high, likely because back pain. No medication adjustment * Assessment & Plan Note - Richie Houston MD - 05/24/2019 12:26 PM CDT Associated Problem(s): Microvascular angina (HCC) Minimally symptomatic on diltiazem. She is not known to have coronary artery disease. documented in this encounter Plan of Treatment Not on file documented as of this encounter Procedures Procedure Name Priority Date/Time Associated Diagnosis Comments POCT LIPID PANEL Routine 05/24/2019 12:3 2 PM CDT Microvascular angina (CMS/HCC) ECG 12-LEAD Routine 05/24/2019 Microvascular angina (CMS/HCC) documented in this encounter Results * NM MPI SPECT (Rest and/or Stress) Multiple Studies (05/27/2019 10:14 AM CDT) Anatomical Region Laterality Modality Body N/A Nuclear Medicine 05/27/2019 8:34 AM CDT Narrative 05/27/2019 11:05 AM CDT [facility] [address] [place] [address] MPI Imaging Report Patient Name: MACIE BRISENO [...] Procedure Note Richie Houston MD - 05/27/2019 [facility] [address] [place] [address] MPI Imaging Report Patient Name: MACIE BRISENO [...] MD IMG NM PROCEDURES Final Res ult * POCT lipid panel (05/24/2019 12:32 PM CDT) Cholesterol, POC 168 mg/dL HDL, POC 61 mg/dL Triglycerides, POC 183 mg/dL LDL Cholesterol POC 70 mg/dL Chol/HDL Ratio, POC 2.7 Non-HDL Cholesterol, POC 107 mg/dL Cholesterol Total, POC 168 mg/dL Capillary blood 05/24/2019 1 2:32 PM CDT Richie Houston MD POINT OF CARE TEST ORDERABL ES Final Result * ECG 12 lead (05/24/2019) Richie Houston MD ECG ORDERABLES Edited Resu lt - Final documented in this encounter Visit Diagnoses Diagnosis Microvascular angina (HCC)- Primary Essential hypertension Unspecified essential hypertension Dyslipidemia Other and unspecified hyperlipidemia Abnormal ECG Nonspecific abnormal electrocardiogram (ECG) (EKG) Microvascular angina (HCC) Abnormal ECG Nonspecific abnormal electrocardiogram (ECG) (EKG) documented in this encounter Discontinued Medications Medication Sig Discontinue Reason Start Date End Da te AMOXICILLIN 500 mg capsule Therapy completed 12/27/2018 ibuprofen (ADVIL,MOTRIN) 600 mg tablet Therapy completed 019 05/24/2019 documented as of this encounter Historical Medications * This list may reflect changes made after this encounter. diclofenac DR (VOLTAREN) 75 mg EC tablet Take 75 mg by mouth 2 (two) times a day 09/29/2019 HYDROcodone-aceta minophen (NORCO) 7.5-325 mg per tabletIndications :Pain Take 1 tablet by mouth every 8 (eight) hours as needed for pain 09/29/2019 added in this encounter Care Teams Dairy Supplies Sales Representative Relationship Specialty Start Date End Date Rg Read MD PCP - General 06/21/13 04/25/20 documented as of this encounter
--- OUTSIDE RECORDS SUMMARY | 2024-07-12 09:00 | XMS_ITS | Encounter Summary ---
Author Organization [facility] Address [address] [place] [address] Phone Care Team Providers Care Food Checkers And Cashiers Supervisor Name Role Phone Rg Read MD Primary Care Provider [phone] Encounter Details Date Type Department Care Team (Late st Contact Info) Description 02/14/2019 Telephone [facility] [address] Advanced Medicine [address] [place] [address] [place] [id number] Juan Carlos Jackson MD [address] [place] [address] Social History Tobacco Use Types Packs/Day Years Used Date Smoking Tobacco: Never Smokeless Tobacco: Never Alcohol Use Standard Drinks/Week Comments Yes 0 (1 standard drink = 0.6 oz pur e alcohol) Comments Unknown Sex and Gender Information Value Date Recorded Sex Assigned at Not on file Legal Sex Female 9:09 PM FRONT EDGER Gender Identity Not on file Sexual Orientation Lesbian 05/24/2019 9: 06 AM CDT documented as of this encounter Miscellaneous Notes * Telephone Encounter - Gianna Landry MA - 02/14/2019 10:13 AM CDT error documented in this encounter Plan of Treatment Not on file documented as of this encounter Visit Diagnoses Not on filedocumented in this encounter Care Teams Food Checkers And Cashiers Supervisor Relationship Specialty Start Date End Date Rg Read MD PCP - General 06/21/13 04/25/20 documented as of this encounter
--- OUTSIDE RECORDS SUMMARY | 2024-07-12 09:00 | XMS_ITS | Encounter Summary ---
Author Organization [facility] Address [address] [place] [address] Phone Care Team Providers Care Bungy Jump Master Name Role Phone Rg Read MD Primary Care Provider [phone] Reason for Visit * Reason Comments Hearing Aid Check * ENT (Routine) - Closed Specialty Diagnoses / Procedures Referred By Gigi orosco Referred To Contact Audiology Diagnoses HEARING AID CHECK Procedures HEARING AID CHECK Rg Read MD Phone: tel: fax: Anahy Frances Au.D. [address] [facility] [place] [address] Phone: tel: fax: Referral ID Status Reason Start Date Expiration Date Visits Re quested Visits Authorized [id number] Closed 03/15/2018 09/24/2019 1 1 Encounter Details Date Type Department Care Team (Latest Contact Info) Description 03/25/2018 1:00 PM CDT Procedure visit [facility] Otolaryngology [address] [place] [phone] Anahy Frances Au.D. [address] [facility] [place] [address] Sensorineural hearing loss, asymmetrical (Primary Dx) Social History Tobacco Use Types Packs/Day Years Used Date Smoking Tobacco: Never Smokeless Tobacco: Never Alcohol Use Standard Drinks/Week Comments Yes 0 (1 standard drink = 0.6 oz pur e alcohol) Comments Unknown Sex and Gender Information Value Date Recorded Sex Assigned at Not on file Legal Sex Female 9:09 PM FORM SETTER SUPERVISOR Gender Identity Not on file Sexual Orientation Lesbian 05/24/2019 9: 06 AM CDT documented as of this encounter Procedure Notes * Anahy Frances Au.D. - 03/25/2018 1:00 PM CDT Procedures Macie Briseno [id number] 03/25/18 Evoke Hearing Aid is working well with RC dex and voice sounds in a barrel a bit. Ready to connect comdex Would like to still have [place] hearing aid for Evoke ASSESSMENT: Increased MPO and overall gain 2 steps - patient noted Evoke aid sounded much better. Comdex was not charged - recommended patient call Dexter Nielsen - provided patient with number forconnecting Evoke and Dream to Comdex after Comdex is charged. Connected Evoke to patient's Evoke virgilio - patient can connect Dream and Evoke to COmdex virgilio - patient will need to get Fitbit virgilio on phone again. PLAN/RECOMMENDATIONS: 2 week f/u Informed Widex rep patient still wants [place] hearing aid for Evoke. documented in this encounter Plan of Treatment Not on file documented as of this encounter Visit Diagnoses Diagnosis Sensorineural hearing loss, asymmetrical- Primary documented in this encounter Care Teams Bungy Jump Master Relationship Specialty Start Date End Date Rg Read MD PCP - General 06/21/13 04/25/20 documented as of this encounter
--- OUTSIDE RECORDS SUMMARY | 2024-07-12 09:00 | XMS_ITS | Encounter Summary ---
Author Organization [facility] Address [address] [place] [address] Phone Care Team Providers Care Sales Solutions Associate Name Role Phone Rg Read MD Primary Care Provider [phone] Encounter Details Date Type Department Care Team (Late st Contact Info) Description 01/07/2018 Documentation [facility] Otolaryngology [address] [place] [address] Anahy Frances Au.D. [address] [place] [address] Social History Tobacco Use Types Packs/Day Years Used Date Smoking Tobacco: Never Smokeless Tobacco: Never Alcohol Use Standard Drinks/Week Comments Yes 0 (1 standard drink = 0.6 oz pur e alcohol) Comments Unknown Sex and Gender Information Value Date Recorded Sex Assigned at Not on file Legal Sex Female 9:09 PM GOLF COURSE KEEPER Gender Identity Not on file Sexual Orientation Lesbian 05/24/2019 9: 06 AM CDT documented as of this encounter Progress Notes * Anahy Frances Au.D. - 01/07/2018 9:13 AM CDT Added hearing aid information documented in this encounter Plan of Treatment Not on file documented as of this encounter Visit Diagnoses Not on filedocumented in this encounter Care Teams Sales Solutions Associate Relationship Specialty Start Date End Date Rg Read MD PCP - General 06/21/13 04/25/20 documented as of this encounter
--- OUTSIDE RECORDS SUMMARY | 2024-07-12 09:00 | XMS_ITS | Encounter Summary ---
Author Organization [facility] Address [address] [place] [address] Phone Care Team Providers Care Pcat Instructor Name Role Phone Rg Read MD Primary Care Provider [phone] Reason for Visit * Reason Comments Hearing Aid Check * ENT (Routine) - Closed Specialty Diagnoses / Procedures Referred By Contwolfgang t Referred To Contact Audiology Diagnoses WARRANTY EXP.DECEMBER Procedures HEARING AID CHECK Rg Read MD Phone: tel: fax: Anahy Frances Au.D. [address] [facility] [place] [address] Phone: tel: fax: Referral ID Status Reason Start Date Expiration Date Visits Re quested Visits Authorized [id number] Closed 01/11/2019 07/22/2020 1 1 Encounter Details Date Type Department Care Team (Latest Contact Info) Description 01/11/2019 2:30 PM CDT Procedure visit [facility] Otolaryngology [address] [place] [phone] Anahy Frances Au.D. [id number] [place] [address] Sensorineural hearing loss, asymmetrical (Primary Dx) Social History Tobacco Use Types Packs/Day Years Used Date Smoking Tobacco: Never Smokeless Tobacco: Never Alcohol Use Standard Drinks/Week Comments Yes 0 (1 standard drink = 0.6 oz pur e alcohol) Comments Unknown Sex and Gender Information Value Date Recorded Sex Assigned at Not on file Legal Sex Female 9:09 PM DISPENSARY CLERK Gender Identity Not on file Sexual Orientation Lesbian 05/24/2019 9: 06 AM CDT documented as of this encounter Procedure Notes * Anahy Frances Au.D. - 01/11/2019 2:30 PM CDT Procedures Macie Briseno [id number] 01/11/19 Scheduled Warranty check Patient reported: left aid warranty expires this month Recently one time changed program and there was no sound in the left aid; otherwise working fine. Would like size 1P warehouse receiver changed to 2P warehouse receiver as it is bothersome to ear. ASSESSMENT: Widex self test - ok both aids Electroacoustic analysis was performed and revealed: Bothhearing aid(s) - working within specifications set on Test Mode/F.O.G Sign Language Translator Settings [id number] MTG EIN Right CIC Test 131 51 22 Left CIC Test 129 53 19 Hearing aid programming changes: No adjustments were made to the settings today Output graph of left hearing aid had a significant notch - recommend sending aid for repair under warranty with warehouse receiver - patient agreed Listening check revealed: Aids clear and no evidence of distortion or intermittent performance. VC and Program buttons functioning properly PLAN/RECOMMENDATIONS: 2 week hearing aid pickers material handlers documented in this encounter Plan of Treatment Not on file documented as of this encounter Visit Diagnoses Diagnosis Sensorineural hearing loss, asymmetrical- Primary documented in this encounter Care Teams Pcat Instructor Relationship Specialty Start Date End Date Rg Read MD PCP - General 06/21/13 04/25/20 documented as of this encounter
--- OUTSIDE RECORDS SUMMARY | 2024-07-12 09:00 | XMS_ITS | Encounter Summary ---
Author Organization [facility] Address [address] [place] [address] Care Team Providers Care Sanitation Manager Name Role Phone Rg Read MD Primary Care Provider [phone] Reason for Visit * Reason Onset Date Comments Surgical Clearance 12/17/2017 Encounter Details Date Type Department Care Team (Late st Contact Info) Description 12/17/2017 Telephone [facility] [place] [address] [place] [address] Tg Houston MD [facility] [facility] [address] [place] [address] Surgical Clearance Social History Tobacco Use Types Packs/Day Years Used Date Smoking Tobacco: Never Smokeless Tobacco: Never Alcohol Use Standard Drinks/Week Comments Yes 0 (1 standard drink = 0.6 oz pur e alcohol) Comments Unknown Sex and Gender Information Value Date Recorded Sex Assigned at Not on file Legal Sex Female 9:09 PM DIRECTOR GOVERNMENT Gender Identity Not on file Sexual Orientation Lesbian 05/24/2019 9: 06 AM CDT documented as of this encounter Miscellaneous Notes * Telephone Encounter - Jayda Poole - 12/17/2017 4:32 PM CDT Pt verbally understood and will call back with any questions she may have. Faxed information . * Telephone Encounter - Tg Houston MD - 12/17/2017 8:52 AM CDT Normal myocardial perfusion study within the year. She is cleared. Please prepare and send letter. * Telephone Encounter - Jayda Poole - 12/17/2017 8:25 AM CDT Pt called and stated she is need lumbar fusion again. She is hoping for a CX on December 29. She is needing a cardiac clearance again. Please advise. Clearance can be faxed to Dr Henry [phone] documented in this encounter Plan of Treatment Not on file documented as of this encounter Visit Diagnoses Not on filedocumented in this encounter Care Teams Sanitation Manager Relationship Specialty Start Date End Date Rg Read MD PCP - General 06/21/13 04/25/20 documented as of this encounter
--- OUTSIDE RECORDS SUMMARY | 2024-07-12 09:00 | XMS_ITS | Encounter Summary ---
Author Organization [facility] Address [address] [place] [address] Phone Care Team Providers Care Master Cosmetologist Name Role Phone Rg Read MD Primary Care Provider [phone] Reason for Visit * Reason Comments Hearing Aid Check * ENT (Routine) - Closed Specialty Diagnoses / Procedures Referred By Gigi orosco Referred To Contact Audiology Diagnoses EARMOLD IMMIGRATION LAWYER Procedures HEARING AID CHECK Rg Read MD Phone: tel: fax: Anahy Frances Au.D. [address] [facility] [place] [address] Phone: tel: fax: Referral ID Status Reason Start Date Expiration Date Visits Re quested Visits Authorized [id number] Closed 04/16/2018 10/26/2019 1 1 Encounter Details Date Type Department Care Team (Latest Contact Info) Description 04/16/2018 11:45 AM CDT Procedure visit [facility] Otolaryngology [address] [facility] [address] [place] [phone] Anahy Frances Au.D. [address] [facility] [place] [address] Sensorineural hearing loss, asymmetrical (Primary Dx) Social History Tobacco Use Types Packs/Day Years Used Date Smoking Tobacco: Never Smokeless Tobacco: Never Alcohol Use Standard Drinks/Week Comments Yes 0 (1 standard drink = 0.6 oz pur e alcohol) Comments Unknown Sex and Gender Information Value Date Recorded Sex Assigned at Not on file Legal Sex Female 9:09 PM SALES REPRESENTATIVE Gender Identity Not on file Sexual Orientation Lesbian 05/24/2019 9: 06 AM CDT documented as of this encounter Procedure Notes * Anahy Frances Au.D. - 04/16/2018 11:45 AM CDT Procedures Macie Briseno [id number] 04/16/18 Picking up [place] Evoke 330 fusion hearing aid. Verified aid worked with remote and dex PLAN/RECOMMENDATIONS: 1 month f/u documented in this encounter Plan of Treatment Not on file documented as of this encounter Visit Diagnoses Diagnosis Sensorineural hearing loss, asymmetrical- Primary documented in this encounter Care Teams Master Cosmetologist Relationship Specialty Start Date End Date Rg Read MD PCP - General 06/21/13 04/25/20 documented as of this encounter
--- OUTSIDE RECORDS SUMMARY | 2024-07-12 09:00 | XMS_ITS | Encounter Summary ---
Author Organization [facility] Address [address] [place] [address] Phone Care Team Providers Care Group Sales Representative Name Role Phone Rg Read MD Primary Care Provider [phone] Reason for Visit * Reason Comments Audiometric Evaluation Hearing Aid Check * ENT (Routine) - Closed Specialty Diagnoses / Procedures Referred By Gigi t Referred To Contact Audiology Diagnoses hac Procedures HEARING AID CHECK Rg Read MD Phone: tel: fax: Anahy Frances Au.D. [address] [facility] [place] [address] Phone: tel: fax: Referral ID Status Reason Start Date Expiration Date Visits Re quested Visits Authorized [id number] Closed 04/13/2018 10/23/2019 1 1 Encounter Details Date Type Department Care Team (Latest Contact Info) Description 08/18/2018 1:00 PM HOSPICE TEAM LEAD Procedure visit [facility] Otol[facility]ology [address] [place] [phone] Anahy Frances Au.D. [address] [facility] [place] [address] Sensorineural hearing loss, asymmetrical (Primary Dx) Social History Tobacco Use Types Packs/Day Years Used Date Smoking Tobacco: Never Smokeless Tobacco: Never Alcohol Use Standard Drinks/Week Comments Yes 0 (1 standard drink = 0.6 oz pur e alcohol) Comments Unknown Sex and Gender Information Value Date Recorded Sex Assigned at Not on file Legal Sex Female 9:09 PM HOSPICE TEAM LEAD Gender Identity Not on file Sexual Orientation Lesbian 05/24/2019 9: 06 AM CDT documented as of this encounter Procedure Notes * Anahy Frances Au.D. - 08/18/2018 1:00 PM CST Procedures Digna Metcalf CCC-A PATIENT: Macie Briseno : 1945 TYPE OF SERVICE: Audiogram/Hearing aid check DATE OF SERVICE: 08/18/2018 REFERRAL SOURCE:Rg Read MD PATIENT REPORTS: Macie Briseno is seen today for an annual audiological evaluation. Her primary concern is decreased hearing. Picking up repaired left hearing aid TESTS PERFORMED: See: comprehensive audiological evaluation Otoscopy: unremarkable, both ears - TM visualized Pure tone audiometry was performed and revealed: R ear - Mild to severe sensorineural hearing loss L ear - Moderately severe to severe sensorineural hearing loss Speech recognition thresholds test was performed and revealed: R ear - Moderate L ear - Moderately severe Word recognition testing was performed at [facility] using recorded version of NU-6 lists of a female speaker: R ear - WNL L ear - Very poor Both ears - DNT immittance See scan of today's audiogram for comparison to previous audiogram dated: 09-18-2017 HEARING AID ASSESSMENT: Gave patient repaired left hearing aid. Patient did not want right aid turned down - it was turned up two steps at the last visit because the left aid was being repaired. Reminded patient 6 month warranty on left aid. Patient paid for repaired aid $450 Reviewed programs with patient - they are different in each aid due to different models Patient purchased a bottle of enterprise architect manager spray RECOMMENDATIONS: ??? Copy of audiologic evaluation and report sent to Rg Read MD and Juan Carlos Jackson MD ??? Counseled patient on the results of the audiologic examination ??? Continue use of hearing aids ??? Hearing protection in noise ??? Hearing assistive technology ??? Hearing aid check has been scheduled for six months - prior to warranty expiration on left hearing aid ICE TEAM LEAD documented in this encounter Plan of Treatment Not on file documented as of this encounter Procedures Procedure Name Priority Date/Time Associated Diagnosis Comments AUDBASE RESULTS 08/18/2018 documented in this encounter Results * AUDBASE RESULTS (08/18/2018) Provider Scanning AUDIOLOGY SERVICES ORDERABLES Final Result documented in this encounter Visit Diagnoses Diagnosis Sensorineural hearing loss, asymmetrical- Primary documented in this encounter Care Teams Group Sales Representative Relationship Specialty Start Date End Date Rg Read MD PCP - General 06/21/13 04/25/20 documented as of this encounter
--- OUTSIDE RECORDS SUMMARY | 2024-07-12 09:00 | XMS_ITS | Encounter Summary ---
Author Organization [facility] Address [address] [place] [address] Phone Care Team Providers Care Construction Equipment Mechanic Helper Name Role Phone Rg Read MD Primary Care Provider [phone] Reason for Visit * Reason Comments Hearing Aid Check * ENT (Routine) - Closed Specialty Diagnoses / Procedures Referred By Gigi orosco Referred To Contact Audiology Diagnoses HEARING AID CHECK Procedures HEARING AID CHECK Rg Read MD Phone: tel: fax: Anahy Frances Au.D. [address] [facility] [place] [address] Phone: tel: fax: Referral ID Status Reason Start Date Expiration Date Visits Re quested Visits Authorized [id number] Closed 03/26/2018 10/05/2019 1 1 Encounter Details Date Type Department Care Team (Latest Contact Info) Description 08/03/2018 4:30 PM REAL ESTATE TRANSACTION MANAGER Procedure visit [facility] [address] [facility] [place] [phone] Anahy Frances Au.D. [address] [facility] [place] [address] Sensorineural hearing loss, asymmetrical (Primary Dx) Social History Tobacco Use Types Packs/Day Years Used Date Smoking Tobacco: Never Smokeless Tobacco: Never Alcohol Use Standard Drinks/Week Comments Yes 0 (1 standard drink = 0.6 oz pur e alcohol) Comments Unknown Sex and Gender Information Value Date Recorded Sex Assigned at Not on file Legal Sex Female 9:09 PM REAL ESTATE TRANSACTION MANAGER Gender Identity Not on file Sexual Orientation Lesbian 05/24/2019 9: 06 AM CDT documented as of this encounter Procedure Notes * Anahy Frances Au.D. - 08/03/2018 4:30 PM CST Procedures Macie Briseno [id number] 08/03/18 Patient reported: Not hearing well ASSESSMENT: Aids cleaned and checked. Changed wax traps on each hearing aid Right aid Widex self test - ok Left aid Widex self test - debris in sherita or sound outlet - cleaned and tried another category consultant - still same issue. Recommend repair or replace - aid is 5.5 years old $450 to repair with 6 month warranty patient would like to repair. Electroacoustic analysis was performed and revealed: right hearing aid(s) - working within specifications set on Test Mode/F.O.G Brim Blocker Settings [id number] MTG EIN Right Smith-1 Test 122 44 22 Hearing aid programming changes: Since patient will only be wearing right aid - increased overall gain per patient request by 2 steps. Patient would like audiogram to confirm any changes in hearing. PLAN/RECOMMENDATIONS: Hearing aid molded goods spot picker in 2 weeks and hearing test. ENT consult with Dr. Jackson after audiogram ESTATE TRANSACTION MANAGER documented in this encounter Plan of Treatment Not on file documented as of this encounter Visit Diagnoses Diagnosis Sensorineural hearing loss, asymmetrical- Primary documented in this encounter Care Teams Construction Equipment Mechanic Helper Relationship Specialty Start Date End Date Rg Read MD PCP - General 06/21/13 04/25/20 documented as of this encounter
--- OUTSIDE RECORDS SUMMARY | 2024-07-12 09:00 | XMS_ITS | Encounter Summary ---
Author Organization [facility] Address [address] [place] [address] Phone Care Team Providers Care Chief Chemist Name Role Phone Rg Read MD Primary Care Provider [phone] Reason for Visit * Reason Comments Hearing Aid Pick-up * ENT (Routine) - Closed Specialty Diagnoses / Procedures Referred By Gigi orosco Referred To Contact Audiology Diagnoses HEARING AID AUTOMOTIVE LIGHT MECHANIC Procedures HEARING AID CHECK Rg Read MD Phone: tel: fax: Anahy Frances Au.D. [address] [facility] [place] [address] Phone: tel: fax: Referral ID Status Reason Start Date Expiration Date Visits Re quested Visits Authorized [id number] Closed 01/31/2019 08/11/2020 1 1 Encounter Details Date Type Department Care Team (Latest Contact Info) Description 01/31/2019 1:00 PM CDT Procedure visit [facility] Otolaryngology [address] [facility] [address] [address] [place] [phone] Anahy Frances Au.D. [address] [place] [address] Sensorineural hearing loss, asymmetrical (Primary Dx) Social History Tobacco Use Types Packs/Day Years Used Date Smoking Tobacco: Never Smokeless Tobacco: Never Alcohol Use Standard Drinks/Week Comments Yes 0 (1 standard drink = 0.6 oz pur e alcohol) Comments Unknown Sex and Gender Information Value Date Recorded Sex Assigned at Not on file Legal Sex Female 9:09 PM CIGARETTE PACKAGE EXAMINER Gender Identity Not on file Sexual Orientation Lesbian 05/24/2019 9: 06 AM CDT documented as of this encounter Procedure Notes * Anahy Frances Au.D. - 01/31/2019 1:00 PM CDT Procedures Macie García Finn [id number] 01/31/19 Picking up repaired left hearing aid and atul Patient reported: tinnitus ramps up at times and taking aid out for about 1 minute seems to help calm it down. ASSESSMENT: Patient reported aids sounded balanced. Reminded patient warranty has for repair. PLAN/RECOMMENDATIONS: Hearing aid check in 6 months with a hearing test documented in this encounter Plan of Treatment Not on file documented as of this encounter Visit Diagnoses Diagnosis Sensorineural hearing loss, asymmetrical- Primary documented in this encounter Care Teams Chief Chemist Relationship Specialty Start Date End Date Rg Read MD PCP - General 06/21/13 04/25/20 documented as of this encounter
--- OUTSIDE RECORDS SUMMARY | 2024-07-12 09:01 | XMS_ITS | Encounter Summary ---
Author Organization [facility] Address [address] [place] [address] Care Team Providers Care Tunnel Drier Operator Name Role Phone Rg Read MD Primary Care Provider [phone] Reason for Visit * Reason Comments Chest Pain Hypertension Hyperlipidemia Encounter Details Date Type Department Care Team (Late st Contact Info) Description 06/30/2017 9:45 AM INSPECTOR WEIGHTS AND MEASURES [place] [facility] [address] [place] [address] Tg Houston MD [address] [place] [address] [address] [place] [address] Exertional angina (CMS/HCC) (Primary Dx); Dyslipidemia; Essential hypertension Social History Tobacco Use Types Packs/Day Years Used Date Smoking Tobacco: Never Smokeless Tobacco: Never Alcohol Use Standard Drinks/Week Comments Yes 0 (1 standard drink = 0.6 oz pur e alcohol) Comments Unknown Sex and Gender Information Value Date Recorded Sex Assigned at Not on file Legal Sex Female 9:09 PM INSPECTOR WEIGHTS AND MEASURES Gender Identity Not on file Sexual Orientation Lesbian 05/24/2019 9: 06 AM CDT documented as of this encounter Last Filed Vital Signs Vital Sign Reading Time Taken Comments Blood Pressure 112/70 06/30/2017 9:38 AM INSPECTOR WEIGHTS AND MEASURES Pulse 67 06/30/2017 9:38 AM INSPECTOR WEIGHTS AND MEASURES Temperature - - Respiratory Rate - - Oxygen Saturation - - Inhaled Oxygen Concentration - - Weight 76.7 kg (169 lb) 06/30/2017 9:38 AM INSPECTOR WEIGHTS AND MEASURES Height 166.4 cm (5' 5.5 ) 06/30/2017 9:38 AM INSPECTOR WEIGHTS AND MEASURES Body Mass Index 27.7 06/30/2017 9:38 AM INSPECTOR WEIGHTS AND MEASURES documented in this encounter Progress Notes * Tg Houston MD - 06/30/2017 9:45 AM CST Patient Name: Macie Briseno Provider: Tg Houston MD : 1945 Date of Service: 06/30/2017 Referring: Jacek CHIEF COMPLAINT: Chest Pain; Hypertension; and Hyperlipidemia HISTORY OF PRESENT ILLNESS: 71 y.o. 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 A stress echocardiogram in 2004 was nonischemic, and a Lexiscan MPI on 11/16/2014 was normal with an EF of 83%. She has been managed with calcium channel nayana therapy. In December of 2016, she underwent back surgery. She found this to be a difficult operation from which to recuperate, probably because her hips were also weak from bilateral hip replacement surgery in the past. As she is now trying to get back to exercise, she finds herself limited by precordial chest pressure if she walks up a hill, better on a flat surface. Since I last saw her, her diltiazem dosage was decreased from 240 mg daily to 180 mg daily because low blood pressure. MEDICATIONS: Outpatient Encounter Prescriptions as of 06/30/2017 Medication Sig Dispense Refill ??? ALPRAZolam (XANAX) 0.25 mg tablet take 1 tablet by oral route every day (Patient taking differently: 0.25 mg. .05 prn ) 0 0 ??? b complex vitamins tablet take 1 Tablet by Oral route every day 0 0 ??? cholecalciferol (VITAMIN D3) 5,000 unit tablet take 1 Tablet by Oral route once 0 0 ??? coenzyme Q10 (CO Q-10) 100 mg capsule take 1 Capsule by Oral route once 0 0 ??? diltiazem (TIAZAC) 180 mg 24 hr capsule take 1 capsule (180MG) by oral route every day 90 3 ??? fexofenadine-pseudoephedrine (THELMA-D 12 HOUR) 60-120 mg per 12 hr tablet take 1 tablet by oral route 2 times every day as needed 0 ??? fluticasone (FLONASE) 50 mcg/actuation nasal spray inhale 1 spray (50MCG) by intranasal route every day in each nostril 0 ??? omega-3 fatty acids-fish oil (OMEGA 3 FISH OIL) 684-1,200 mg capsule,delayed release(DR/EC) take 1 Capsule by Oral route 2 times every day 0 ??? pravastatin (PRAVACHOL) 10 mg tablet Take 1 tablet (10 mg total) by mouth daily. 90 tablet 3 ??? sertraline (ZOLOFT) 50 mg tablet take 1 tablet by oral route every day 0 0 ??? triamterene-hydroCHLOROthiazide (MAXZIDE,DYAZIDE) 37.5-25 mg per tablet take 1 tablet by oral route every day 0 ??? diclofenac DR (VOLTAREN) 75 mg EC tablet take 1 tablet (75MG) by oral route 2 times every day 0 ??? [DISCONTINUED] calcium (CALCIO TESSIE) 500 mg tablet 500 mg. 0 ??? [DISCONTINUED] diazePAM (VALIUM) 5 mg tablet take 1 tablet (5MG) by oral route 3 times every day 0 ??? [DISCONTINUED] diltiazem (TIAZAC) 240 mg 24 hr capsule take 1 capsule by oral route every day 90 3 ??? [DISCONTINUED] fexofenadine-pseudoephedrine (THELMA-D 12 HOUR) 60-120 mg per 12 hr tablet take1 tablet by oral route 2 times every day as needed 0 ??? [DISCONTINUED] mrkanbybqne-zbzhizjkj-xgx C-Mn (GLUCOSAMINE CHONDROITIN MAXSTR) 500-400 mg capsule take 2 Capsule by Oral route every day 0 ??? [DISCONTINUED] multivitamin tablet tablet take 1 Tablet by oral route every day with food 0 ??? [DISCONTINUED] multivitamin tablet tablet take 1 Tablet by oral route every day with food 0 ??? [DISCONTINUED] omega-3 fatty acids-fish oil (OMEGA 3 FISH OIL) 684-1,200 mg capsule,delayed release(DR/EC) take 1 Capsule by Oral route 2 times every day 0 ??? [DISCONTINUED] pravastatin (PRAVACHOL) 10 mg tablet take 1 tablet (10MG) by oral route every day 90 3 ??? [DISCONTINUED] triamterene-hydroCHLOROthiazide (MAXZIDE,DYAZIDE) 37.5-25 mg per tablet take 1 tablet by oral route every day 0 No facility-administered encounter medications on file as of 06/30/2017. REVIEW OF SYSTEMS: General: No fever, chills, [...] excessive bleeding or bruising PHYSICAL EXAM: Vitals: 06/30/17 0938 BP: 112/70 BP Location: Left arm Patient Position: Sitting Pulse: 67 Weight: 76.7 kg (169 lb) Height: 166.4 cm (5' 5.5 ) Body mass index is 27.7 kg/m??. General: Well appearing, No pain or [...] Diagnoses and all orders for this visit: Exertional angina (CMS/HCC) (Primary) Assessment & Plan: History of microvascular angina. Her exertional angina is worse now than it has previously been. She does have risk factors for coronary artery disease. Will obtain a pharmacologic stress test. If this shows no evidence of macrovascular ischemia, would then consider Ranexa for microvascular angina. Orders: - NM MPI SPECT (Rest and/or Stress) Multiple Studies; Future Dyslipidemia Assessment & Plan: On chronic lipid lowering therapy with good control. No changes made. Orders: - POCT lipid panel Essential hypertension Assessment & Plan: Blood pressure is adequately controlled on current regimen. No change was made. ECTOR WEIGHTS AND MEASURES documented in this encounter Miscellaneous Notes * Assessment & Plan Note - Tg Houston MD - 06/30/2017 4:48 PM INSPECTOR WEIGHTS AND MEASURES Associated Problem(s): Dyslipidemia On chronic lipid lowering therapy with good control. No changes made. ECTOR WEIGHTS AND MEASURES * Assessment & Plan Note - Tg Houston MD - 06/30/2017 4:48 PM INSPECTOR WEIGHTS AND MEASURES Associated Problem(s): Essential hypertension (Deleted) Blood pressure is adequately controlled on current regimen. No change was made. ECTOR WEIGHTS AND MEASURES * Assessment & Plan Note - Tg Houston MD - 06/30/2017 4:47 PM INSPECTOR WEIGHTS AND MEASURES Associated Problem(s): Microvascular angina (HCC) History of microvascular angina. Her exertional angina is worse now than it has previously been. She does have risk factors for coronary artery disease. Will obtain a pharmacologic stress test. If this shows no evidence of macrovascular ischemia, would then consider Ranexa for microvascular angina. ECTOR WEIGHTS AND MEASURES documented in this encounter Plan of Treatment Not on file documented as of this encounter Procedures Procedure Name Priority Date/Time Associated Diagnosis Comments POCT LIPID PANEL Routine 06/30/2017 9:56 AM INSPECTOR WEIGHTS AND MEASURES Dyslipidemia documented in this encounter Results * POCT lipid panel (06/30/2017 9:56 AM INSPECTOR WEIGHTS AND MEASURES) Cholesterol, POC 208 mg/dL HDL, POC 75 mg/dL Triglycerides, POC 202 mg/dL LDL Cholesterol POC 92 mg/dL Capillary blood 06/30/2017 9 :56 AM INSPECTOR WEIGHTS AND MEASURES us Tg Houston MD POINT OF CARE TEST ORDERABL ES Final Result documented in this encounter Visit Diagnoses Diagnosis Exertional angina (HCC)- Primary Other and unspecified angina pectoris Dyslipidemia Other and unspecified hyperlipidemia Essential hypertension Unspecified essential hypertension documented in this encounter Discontinued Medications Medication Sig Discontinue Reason Start Date End Da te fexofenadine-pseudoephed rine (THELMA-D 12 HOUR) 60-120 mg per 12 hr tablet take 1 tablet by oral route 2 times every day as needed 06/15/2012 06/30/2017 multivitamin tablet tablet take 1 Tablet by oral route every day with food 06/11/2012 06/30/2017 omega-3 fatty acids-fish oil (OMEGA 3 FISH OIL) 684-1,200 mg capsule,delayed release(DR/EC) take 1 Capsule by Oral route 2 times every day 06/11/2012 06/30/2017 pravastatin (PRAVACHOL) 10 mg tablet take 1 tablet (10MG) by oral route every day 05/21/2012 06/30/2017 triamterene-hydroCHLOROt hiazide (MAXZIDE,DYAZIDE) 37.5-25 mg per tablet take 1 tablet by oral route every day 06/15/2012 06/30/2017 diltiazem (TIAZAC) 240 mg 24 hr capsule take 1 capsule by oral route every day 06/15/2012 06/30/2017 calcium (CALCIO TESSIE) 500 mg tablet 500 mg. 06/11/2012 06/30/2017 multivitamin tablet tablet take 1 Tablet by oral route every day with food 06/11/2012 06/30/2017 diazePAM (VALIUM) 5 mg tablet take 1 tablet (5MG) by oral route 3 times every day 06/15/2012 06/30/2017 rpcmfixaggy-czyrjwqny-rk t C-Mn (GLUCOSAMINE CHONDROITIN MAXSTR) 500-400 mg capsule take 2 Capsule by Oral route every day 06/11/2012 06/30/2017 documented as of this encounter Care Teams Tunnel Drier Operator Relationship Specialty Start Date End Date Rg Read MD PCP - General 06/21/13 04/25/20 documented as of this encounter
--- OUTSIDE RECORDS SUMMARY | 2024-07-12 09:01 | XMS_ITS | Encounter Summary ---
Author Organization [facility] Facility Care Team Providers Care Veterinarian Epidemiologist Name Role Phone Rg Read MD Primary Care Provider [phone] Encounter Details Date Type Department Care Team (Latest Contact Info) Description 11/16/2014 10:06 AM CDT - 11/16/2014 11:59 PM CDT Hospital Encounter [facility] Tg Florentino MD [address] [facility] [address] [place] [address] Pre-operative cardiovascular examination; Abnormal electrocardiogram; Pain in joint, pelvic region and thigh Social History Tobacco Use Types Packs/Day Years Used Date Smoking Tobacco: Never Alcohol Use Standard Drinks/Week Comments Yes 0 (1 standard drink = 0.6 oz pur e alcohol) Comments Unknown Sex and Gender Information Value Date Recorded Sex Assigned at Not on file Legal Sex Female 9:09 PM [employer] Gender Identity Not on file Sexual Orientation Lesbian 05/24/2019 9: 06 AM CDT documented as of this encounter Medications at Time of Discharge ALPRAZolam (XANAX) 0.25 mg tablet take 1 tablet by oral route every day 0 0 06/21/2013 8 b complex vitamins tablet take 1 Tablet by Oral route every day 0 0 06/21/2013 1 calcium (CALCIO TESSIE) 500 mg tablet 500 mg. 0 06/11/2012 7 cholecalciferol (VITAMIN D3) 5,000 unit tablet take 1 Tablet by Oral route once 0 0 06/21/2013 0 coenzyme Q10 (CO Q-10) 100 mg capsule take 1 Capsule by Oral route once 0 0 06/21/2013 1 diazePAM (VALIUM) 5 mg tablet take 1 tablet (5MG) by oral route 3 times every day 0 06/15/[address] (VOLTAREN) 75 mg EC tablet take 1 tablet (75MG) by oral route 2 times every day 0 06/15/2012 9 diltiazem (TIAZAC) 180 mg 24 hr capsule take 1 capsule (180MG) by oral route every day 90 3 06/15/2012 0 diltiazem (TIAZAC) 240 mg 24 hr capsule take 1 capsule by oral route every day 90 3 06/15/2012 7 fexofenadine-pseu doephedrine (THELMA-D 12 HOUR) 60-120 mg per 12 hr tablet take 1 tablet by oral route 2 times every day as needed 0 06/15/2012 9 fexofenadine-pseu doephedrine (THELMA-D 12 HOUR) 60-120 mg per 12 hr tablet take 1 tablet by oral route 2 times every day as needed 0 06/15/2012 7 fluticasone (FLONASE) 50 mcg/actuation nasal spray inhale 1 spray (50MCG) by intranasal route every day in each nostril 0 06/15/2012 4 glucosamine-chond roit-vit C-Mn (GLUCOSAMINE CHONDROITIN MAXSTR) 500-400 mg capsule take 2 Capsule by Oral route every day 0 06/11/2012 7 multivitamin tablet tablet take 1 Tablet by oral route every day with food 0 06/11/2012 7 multivitamin tablet tablet take 1 Tablet by oral route every day with food 0 06/11/2012 7 omega-3 fatty acids-fish oil (OMEGA 3 FISH OIL) 684-1,200 mg capsule,delayed release(DR/EC) take 1 Capsule by Oral route 2 times every day 0 06/11/2012 0 omega-3 fatty acids-fish oil (OMEGA 3 FISH OIL) 684-1,200 mg capsule,delayed release(DR/EC) take 1 Capsule by Oral route 2 times every day 0 06/11/2012 7 pravastatin (PRAVACHOL) 10 mg tablet TAKE ONE TABLET BY MOUTH ONCE DAILY 90 5 05/21/2012 7 pravastatin (PRAVACHOL) 10 mg tablet take 1 tablet (10MG) by oral route every day 90 3 05/21/2012 7 sertraline (ZOLOFT) 50 mg tablet take 1 tablet by oral route every day 0 0 06/27/2014 9 triamterene-hydro CHLOROthiazide (MAXZIDE,DYAZIDE) 37.5-25 mg per tablet take 1 tablet by oral route every day 0 06/15/2012 9 triamterene-hydro CHLOROthiazide (MAXZIDE,DYAZIDE) 37.5-25 mg per tablet take 1 tablet by oral route every day 0 06/15/2012 7 documented as of this encounter Plan of Treatment Not on file documented as of this encounter Procedures Procedure Name Priority Date/Time Associated Diagnosis Comments NUCLEAR MEDICINE MYOCARDIAL PERFUSION WORKSHEET Routine 11/16/2014 12:32 PM CDT NUCLEAR MEDICINE MYOCARDIAL PERFUSION REPORT 11/16/2014 12:00 AM CDT documented in this encounter Results * NUCLEAR MEDICINE MYOCARDIAL PERFUSION WORKSHEET (11/16/2014 12:32 PM CDT) Anatomical Region Laterality Modality N/A Nuclear Medicine 11/16/2014 12:3 2 PM CDT Narrative 11/17/2014 11:26 AM CDT [facility] [address] [place] [address] ??[id number] MPI Imaging Report Patient Name: ??MACIE BRISENO ?? Gender: ? Female ? Date: ?1945 ? Study Date: ?? 16-Nov-2014 Tech: ?Location: ? ^OPT^^^^^^^OUTPT Ref. Physician: TG FLORENTINO Procedures: Myocardial perfusion imaging with Sestamibi SPECT at rest and post regadenoson (Lexiscan) infusion. Indications: Abnormal ECG and Pre-Op Clearance. Findings Procedure Data: One day rest/stress protocol was used. ??Lexiscan. ?? Sestamibi injected at rest was 8.7 millicuries. ??Sestamibi injected at peak exercise was 26.0 millicuries. ?? TID: 1.40. ??Baseline HR:71 bpm. ??Peak HR:91 bpm. ??Max Predicted HR:152 bpm. ??Target HR:129 bpm. ??Percent Max Predicted HR Achieved:60 %. ??Baseline BP:144/74. ??Peak BP:109/57. ??RatePressure Product:94886 BPM*mmHg. Performed By: Marina Cha RN. Reason for Termination: Lexiscan protocol complete. Resting ECG: Normal sinus rhythm. ??Nonspecific T wave abnormality. Post Pharm ECG: No diagnostic ST changes. Arrhythmia: Rare PVCs. Cardiac Symptoms With Stress: Symptoms with stress were Chest pain, Dyspnea, headache and nausea. Symptoms were resolved with rest and caffeine. BP Response: Blood pressure response is appropriate. Perfusion: Normal perfusion imaging. ??Technical quality of study is good. LV Function: Global left ventricular function is normal. ??Left ventricular ejection fraction is 83 %. Exam Interpreted: Offsite office. Conclusions Negative Pharmacologic Stress Myocardial Perfusion Imaging without ischemia or infarct. Normal Gated Spect study with EF of 83%. Electronically Signed By: Tg Florentino MD, [facility] 17-Nov-2014 11:26:51 ??-0500 Patient Name: MACIE BRISENO Study Date: 16-Nov-2014 Radiologist: TG FLORENTINO M.D. ?? Attending: ??TG FLORENTINO M.D. Requesting: TG FLORENTINO M.D. Requesting Fax: ?? Requesting ID: [id number] Attending Fax: ?? Attending ID: ?? [id number] Completed Time: ?? 11/16/2014 12:32 AM Dictated Time: ?N/A Transcribed Time: 11/17/2014 11:26 AM Signed by: ?TG FLORENTINO ??MBalajiDBalaji on 11/17/2014 11:26 AM Report To 1 ID: Report To 1 Name: , Report To 1 FAX: Report To 2 ID: Report To 2 Name: , Report To 2 FAX: Report To 3 ID: Report To 3 Name: , Report To 3 FAX: NextGen Order #: Procedure Note Provider, MD Emmanuel - 11/18/2016 [facility] [address] [place] [id number] MPI Imaging Report Patient Name: MACIE BRISENO Gender: Female Date: 1945 Study Date: 16-Nov-2014 Tech: Location: ^OPT^^^^^^^OUTPT Ref. Physician: TG FLORENTINO Procedures: Myocardial perfusion imaging with Sestamibi SPECT at rest and post regadenoson (Lexiscan) infusion. Indications: Abnormal ECG and Pre-Op Clearance. Findings Procedure Data: One day rest/stress protocol was used. Lexiscan. Sestamibi injected at rest was 8.7 millicuries. Sestamibi injected at peak exercise was 26.0 millicuries. TID: 1.40. Baseline HR:71 bpm. Peak HR:91 bpm. Max Predicted HR:152 bpm. Target HR:129 bpm. Percent Max Predicted HR Achieved:60 %. Baseline BP:144/74. Peak BP:109/57. RatePressure Product:41593 BPM*mmHg. Performed By: Marina Cha RN. Reason for Termination: Lexiscan protocol complete. Resting ECG: Normal sinus rhythm. Nonspecific T wave abnormality. Post Pharm ECG: No diagnostic ST changes. Arrhythmia: Rare PVCs. Cardiac Symptoms With Stress: Symptoms with stress were Chest pain, Dyspnea, headache and nausea. Symptoms were resolved with rest and caffeine. BP Response: Blood pressure response is appropriate. Perfusion: Normal perfusion imaging. Technical quality of study is good. LV Function: Global left ventricular function is normal. Left ventricular ejection fraction is 83 %. Exam Interpreted: Offsite office. Conclusions Negative Pharmacologic Stress Myocardial Perfusion Imaging without ischemia or infarct. Normal Gated Spect study with EF of 83%. Electronically Signed By: Tg Florentino MD, [facility] 17-Nov-2014 11:26:51 -0500 Patient Name: MACIE BRISENO Study Date: 16-Nov-2014 Radiologist: TG FLORENTINO M.D. Attending: TG FLORENTINO M.D. Requesting: TG FLORENTINO M.D. Requesting Requesting ID: [id number] Attending Attending ID: [id number] Completed Time: 11/16/2014 12:32 AM Dictated Time: N/A Transcribed Time: 11/17/2014 11:26 AM Signed by: TG FLORENTINO M.D. on 11/17/2014 11:26 AM Report To 1 ID: Report To 1 Name: , Report To 1 FAX: Report To 2 ID: Report To 2 Name: , Report To 2 FAX: Report To 3 ID: Report To 3 Name: , Report To 3 FAX: NextGen Order #: Historical Provider MD SARAH FALL PROCEDURES Final R esult * NUCLEAR MEDICINE MYOCARDIAL PERFUSION REPORT (11/16/2014 12:00 AM CDT) Anatomical Region Laterality Modality Nuclear Medicine Narrative 11/16/2014 12:00 AM CDT Ordered by an unspecified provider. Procedure Note ProviderEmmanuel MD - 09/22/2018 Ordered by an unspecified provider. Historical Provider MD SARAH FALL PROCEDURES Final R esult documented in this encounter Visit Diagnoses Diagnosis Pre-operative cardiovascular examination Abnormal electrocardiogram Nonspecific abnormal electrocardiogram (ECG) (EKG) Pain in joint, pelvic region and thigh documented in this encounter Care Teams Veterinarian Epidemiologist Relationship Specialty Start Date End Date Rg Read MD PCP - General 06/21/13 04/25/20 documented as of this encounter
--- OUTSIDE RECORDS SUMMARY | 2024-07-12 09:01 | XMS_ITS | Encounter Summary ---
Author Organization [facility] Facility Care Team Providers Care Owner [employer] Name Role Phone Rg Read MD Primary Care Provider [phone] Encounter Details Date Type Department Care Team (Late st Contact Info) Description 09/08/2014 10:03 AM CLINICAL SERVICES CONSULTANT - 09/08/2014 4:00 PM [facility] Hospital Encounter [facility] wKame, Brian Duong MD [address] [facility] [address] [place] [address] Osteoarthrosis, pelvic region and thigh; Pain in joint, pelvic region and thigh Social History Tobacco Use Types Packs/Day Years Used Date Smoking Tobacco: Never Alcohol Use Standard Drinks/Week Comments Yes 0 (1 standard drink = 0.6 oz pur e alcohol) Comments Unknown Sex and Gender Information Value Date Recorded Sex Assigned at Not on file Legal Sex Female 9:09 PM [facility] Gender Identity Not on file Sexual Orientation [...] Procedure Name Priority Date/Time Associated Diagnosis Comments FLUORO GUIDED NEEDLE PLACEMENT Routine 09/08/2014 10:35 AM CLINICAL SERVICES CONSULTANT documented in this encounter Results * FLUORO GUIDED NEEDLE PLACEMENT (09/08/2014 10:35 AM CLINICAL SERVICES CONSULTANT) Anatomical Region Laterality Modality Body N/A Radiographic Harleen ging 09/08/2014 10:3 5 AM CLINICAL SERVICES CONSULTANT Narrative 09/08/2014 10:48 AM CLINICAL SERVICES CONSULTANT This examination was converted from a legacy system and did not match a report, either due to it being a non-reportable examination, or a duplicate entry Procedure Note Provider, Emmanuel, - 03/02/2017 This examination was converted from a legacy system and did not match areport, either due to it being a non-reportable examination, or aduplicate entry Historical Provider MD SMITH FLUOROSCOPY PROCEDURE S Final Result documented in this encounter Visit Diagnoses Diagnosis Osteoarthrosis, pelvic region and thigh Pain in joint, pelvic region and thigh documented in this encounter Care Teams Owner [employer] Relationship Specialty Start Date End Date Rg Read MD PCP - General 06/21/13 04/25/20 documented as of this encounter
--- OUTSIDE RECORDS SUMMARY | 2024-07-12 09:01 | XMS_ITS | Encounter Summary ---
Author Organization [facility] Facility Care Team Providers Care Seal Extrusion Operator Name Role Phone Rg Read MD Primary Care Provider [phone] Encounter Details Date Type Department Care Team (Late st Contact Info) Description 09/04/2014 - 09/04/2014 11:59 PM ENVIRONMENTAL EMERGENCIES PLANNER Hospital [facility]counter [facility] Gagan An MD [address] [facility] [address] [place] [address] Pain in joint, pelvic region and thigh Social History Tobacco Use Types Packs/Day Years Used Date Smoking Tobacco: Never Alcohol Use Standard Drinks/Week Comments Yes 0 (1 standard drink = 0.6 oz pur e alcohol) Comments Unknown Sex and Gender Information Value Date Recorded Sex Assigned at Not on file Legal Sex Female 9:09 PM ENVIRONMENTAL EMERGENCIES PLANNER Gender Identity Not on file Sexual [...] Priority Date/Time Associated Diagnosis Comments XR HIP (RADLINK) 1V Routine 09/04/2014 1 :10 PM ENVIRONMENTAL EMERGENCIES PLANNER XR PELVIS 1 OR 2 VIEWS Routine 09/04/2014 1:10 PM ENVIRONMENTAL EMERGENCIES PLANNER documented in this encounter Results * XR Pelvis (RadLink) 1 View (09/04/2014 1:10 PM ENVIRONMENTAL EMERGENCIES PLANNER) Anatomical Region Laterality Modality Body, Pelvis N/A Radiographic Harleen ging 09/04/2014 1:10 PM ENVIRONMENTAL EMERGENCIES PLANNER Narrative 09/04/2014 2:03 PM ENVIRONMENTAL EMERGENCIES PLANNER CON WASHBURN M.D. SUE CARLSON M.D. FINAL REPORT The radiology attending physician has personally reviewed this study, and has reviewed and/or edited this written report and agrees with it. ACC# ??Date Time ??Exam [id number] Sep 04, 2014 13:10:00 [id number] Hip Unilateral 1 view R [id number] Sep 04, 2014 13:10:00 [id number] Pelvis 1 or 2 views ACC# ??Date Time ??Exam [id number] Sep 04, 2014 13:10:00 [id number] Hip Unilateral 1 view R [id number] Sep 04, 2014 13:10:00 93495 Pelvis 1 or 2 views EXAMINATION: 1. Right hip one view 2. Pelvis 1 or 2 views HISTORY: ??Hip osteoarthritis FINDINGS: ?? One AP view of the pelvis and one crosstable lateral view of the right hip are submitted for evaluation and compared to the pelvic radiograph dated 08/07/2014. Left total hip arthroplasty appears unchanged projecting in expected position. There is unchanged mild osteoarthritis of the right hip. Right hip alignment is anatomic. No fracture. ?? IMPRESSION: 1. Unchanged mild right hip osteoarthritis. 2. Left total hip arthroplasty projecting in expected position. ?? Requested By: GAGAN AN M.D. Dictated By: ?? SUE CARLSON M.D. ??on Aug ??2014 ??1:57P This document has been electronically signed by: CON WASHBURN M.D. on Aug ??2014 ??2:03P Procedure Note ProviderEmmanuel MD - 11/18/2016 CON WASHBURN M.D. SUE CARLSON M.D. FINAL REPORT The radiology attending physician has personally reviewed this study, and has reviewed and/or edited this written report and agrees with it. ACC# Date Time Exam [id number] Sep 04, 2014 13:10:00 [id number] Hip Unilateral 1 view R [id number] Sep 04, 2014 13:10:00 [id number] Pelvis 1 or 2 views ACC# Date Time Exam [id number] Sep 04, 2014 13:10:00 [id number] Hip Unilateral 1 view R [id number] Sep 04, 2014 13:10:00 [id number] Pelvis 1 or 2 views EXAMINATION: 1. Right hip one view 2. Pelvis 1 or 2 views HISTORY: Hip osteoarthritis FINDINGS: One AP view of the pelvis and one crosstable lateral view of the right hip are submitted for evaluation and compared to the pelvic radiograph dated 08/07/2014. Left total hip arthroplasty appears unchanged projecting in expected position. There is unchanged mild osteoarthritis of the right hip. Right hip alignment is anatomic. No fracture. IMPRESSION: 1. Unchanged mild right hip osteoarthritis. 2. Left total hip arthroplasty projecting in expected position. Requested By: GAGAN AN M.D. Dictated By: SUE CARLSON M.D. on Sep 04 2014 1:57P This document has been electronically signed by: CON WASHBURN M.D. on Sep 04 2014 2:03P us Historical Provider MD SMITH XR PROCEDURES Final R esult * XR Hip (Radlink) 1 View (09/04/2014 1:10 PM ENVIRONMENTAL EMERGENCIES PLANNER) Anatomical Region Laterality Modality Lower Extremities, Hip, Pelvis N/A R adiographic Imaging 09/04/2014 1:10 PM ENVIRONMENTAL EMERGENCIES PLANNER Narrative 09/04/2014 2:03 PM ENVIRONMENTAL EMERGENCIES PLANNER Mariah GONZALES M.D. FINAL REPORT The radiology attending physician has personally reviewed this study, and has reviewed and/or edited this written report and agrees with it. ACC# ??Date Time ??Exam [id number] Sep 04, 2014 13:10:00 [id number] Hip Unilateral 1 view R [id number] Sep 04, 2014 13:10:00 [id number] Pelvis 1 or 2 views ACC# ??Date Time ??Exam [id number] Sep 04, 2014 13:10:00 [id number] Hip Unilateral 1 view R [id number] Sep 04, 2014 13:10:00 [id number] Pelvis 1 or 2 views EXAMINATION: 1. Right hip one view 2. Pelvis 1 or 2 views HISTORY: ??Hip osteoarthritis FINDINGS: ?? One AP view of the pelvis and one crosstable lateral view of the right hip are submitted for evaluation and compared to the pelvic radiograph dated 08/07/2014. Left total hip arthroplasty appears unchanged projecting in expected position. There is unchanged mild osteoarthritis of the right hip. Right hip alignment is anatomic. No fracture. ?? IMPRESSION: 1. Unchanged mild right hip osteoarthritis. 2. Left total hip arthroplasty projecting in expected position. ?? Requested By: GAGAN AN M.D. Dictated By: ?? SUE CARLSON M.D. ??on Aug ??1:57P This document has been electronically signed by: CON WASHBURN M.D. on Aug ??2:03P [id number] Procedure Note Provider, MD Emmanuel - 11/18/2016 CON WASHBURN M.D. SUE CARLSON M.D. FINAL REPORT The radiology attending physician has personally reviewed this study, and has reviewed and/or edited this written report and agrees with it. ACC# Date Time Exam [id number] Sep 04, 2014 13:10:00 [id number] Hip Unilateral 1 view R [id number] Sep 04, 2014 13:10:00 [id number] Pelvis 1 or 2 views ACC# Date Time Exam [id number] Sep 04, 2014 13:10:00 [id number] Hip Unilateral 1 view R [id number] Sep 04, 2014 13:10:00 [id number] Pelvis 1 or 2 views EXAMINATION: 1. Right hip one view 2. Pelvis 1 or 2 views HISTORY: Hip osteoarthritis FINDINGS: One AP view of the pelvis and one crosstable lateral view of the right hip are submitted for evaluation and compared to the pelvic radiograph dated 08/07/2014. Left total hip arthroplasty appears unchanged projecting in expected position. There is unchanged mild osteoarthritis of the right hip. Right hip alignment is anatomic. No fracture. IMPRESSION: 1. Unchanged mild right hip osteoarthritis. 2. Left total hip arthroplasty projecting in expected position. Requested By: GAGAN AN M.D. Dictated By: SUE CARLSON M.D. on Sep 04 2014 1:57P This document has been electronically signed by: CON WASHBURN M.D. on Sep 04 2014 2:03P [id number] Historical Provider IMG XR PROCEDURES Final R esult documented in this encounter Visit Diagnoses Diagnosis Pain in joint, pelvic region and thigh documented in this encounter Care Teams Seal Extrusion Operator Relationship Specialty Start Date End Date Rg Read MD PCP - General 06/21/13 04/25/20 documented as of this encounter
--- OUTSIDE RECORDS SUMMARY | 2024-07-12 09:01 | XMS_ITS | Encounter Summary ---
Author Organization [facility] Healthcare Address [address] [place] [address] Care Team Providers Care Criminal Intelligence Analyst Name Role Phone Rg Read MD Primary Care Provider [phone] Encounter Details Date Type Department Care Team (Latest Contact Info) Description 07/08/2017 10:21 AM SECURITY TECH - 07/08/2017 11:59 PM SECURITY TECH Hospital Encounter [facility]IM [phone] Richie Houston MD [address] [place], [place] [id number] Discharge Disposition: Discharge to home or self care Social History Tobacco Use Types Packs/Day Years Used Date Smoking Tobacco: Never Smokeless Tobacco: Never Alcohol Use Standard Drinks/Week Comments Yes 0 (1 standard drink = 0.6 oz pur e alcohol) Comments Unknown Sex and Gender Information Value Date Recorded Sex Assigned at Not on file Legal Sex Female 9:09 PM SECURITY TECH Gender Identity Not on file Sexual Orientation Lesbian 05/24/2019 9: 06 AM CDT documented as of this encounter Medications at Time of Discharge ALPRAZolam (XANAX) 0.25 mg tablet take 1 tablet by oral route every day 0 0 06/21/2013 8 b complex vitamins tablet take 1 Tablet by Oral route every day 0 0 06/21/2013 1 cholecalciferol (VITAMIN D3) 5,000 unit tablet take [...] route every day 90 3 06/15/2012 0 fexofenadine-pse udoephedrine (THELMA-D 12 HOUR) 60-120 mg per 12 hr tablet take 1 tablet by oral route 2 times every day as needed 0 06/15/2012 9 fluticasone (FLONASE) 50 mcg/actuation nasal spray inhale 1 spray (50MCG) by intranasal route every day in each nostril 0 06/15/2012 4 omega-3 fatty acids-fish oil (OMEGA 3 FISH OIL) 684-1,200 mg capsule,delayed release(DR/EC) take 1 Capsule by Oral route 2 times every day 0 06/11/2012 0 pravastatin (PRAVACHOL) 10 mg tablet Take 1 tablet (10 mg total) by mouth daily. 90 tablet 3 04/13/2017 9 sertraline (ZOLOFT) 50 mg tablet take 1 tablet by oral route every day 0 0 06/27/2014 9 triamterene-hydr oCHLOROthiazide (MAXZIDE,DYAZIDE ) 37.5-25 mg per tablet take 1 tablet by oral route every day 0 06/15/2012 9 documented as of this encounter Discharge Disposition Disposition Code Departure Means Destination Discharge to home or self care documented in this encounter Plan of Treatment Not on file documented as of this encounter Procedures Procedure Name Priority Date/Time Associated Diagnosis Comments NM MPI SPECT (REST AND/OR STRESS) MULTIPLE STUDIES Routine 07/08/2017 6:37 PM SECURITY TECH NUCLEAR MEDICINE MYOCARDIAL PERFUSION REPORT 07/08/2017 12:00 AM SECURITY TECH NUCLEAR MEDICINE MYOCARDIAL PERFUSION REPORT 07/08/2017 12:00 AM SECURITY TECH documented in this encounter Results * NM MPI SPECT (Rest and/or Stress) Multiple Studies (07/08/2017 6:37 PM SECURITY TECH) Anatomical Region Laterality Modality Body N/A Nuclear Medicine 07/08/2017 6:37 PM SECURITY TECH Narrative 07/09/2017 10:41 PM SECURITY TECH [facility] Cardiac Testing [address] [address] MPI Imaging Report Patient Name: MACIE BRISENO GPatient ID: [id number] : [id number] Date: 07/08/2017 12:09:22 AM Gender: FAccession #: [id number] Tech: ? Location: OPT ? Ref.Physician: RICHIE HOUSTON ?Height(Cm): ? BSA: Weight(Kg): Heart Rate: 128Order Physician: RICHIE HOUSTON Procedures: Pharmacologic SPECT Report.: Myocardial perfusion imaging with Sestamibi SPECT at rest and post regadenoson (Lexiscan) infusion. Indications: Chest Pain. Findings: Procedure Data: One day rest/stress protocol was used. Lexiscan Protocol. Sestamibi injected at rest was 8.2 millicuries. Sestamibi injected at peak exercise was 26.0 millicuries. TID: 0.91. Resting HR 66 bpm. Peak HR: 89 bpm. Predicted Maximal HR 149 bpm. Target HR: 128 bpm. Percent Max Predicted HR Achieved: 59.73 %. Baseline BP: 133/76 mmHg. Peak BP: 111/58 mmHg. Exercise Time: 00:38. Performed By: Marina Cha RN. Reason for Termination: Lexiscan protocol complete. Resting ECG: Sinus rhythm. Inferior lateral T-wave inversion. Post Pharm ECG: Nondiagnostic because of resting ECG abnormalities. Arrhythmia: No arrhythmias seen. Cardiac Symptoms With Stress: Symptoms with stress were Chest pain, neck pain, headache and nausea. Symptoms were resolved with rest and caffeine. BP Response: Blood pressure response is appropriate. Perfusion: Normal perfusion imaging. LV Function: Global left ventricular function is normal. Left ventricular ejection fraction is 75 %. Conclusions: 1. Negative Pharmacologic Stress Myocardial Perfusion Imaging without ischemia or infarct. Heart rate increase is not required for adequate pharmacologic vasodilator stress. 2. Normal Gated Spect study with EF of 75%. Electronically Signed By: Richie Houston MD 2017-07-09 16:40:23 SECURITY TECH CC: CC: Radiologist: RICHIE HOUSTON M.D. ?? Attending: ??RICHIE HOUSTON M.D. Requesting: RICHIE HOUSTON M.D. Requesting Fax: ?? Requesting ID: [id number] Attending Fax: ?? Attending ID: ?? [id number] Completed Time: ?? 07/08/2017 12:37 PM Dictated Time: ?N/A Transcribed Time: 07/09/2017 4:40 PM Signed by: ?RIHCIE HOUSTON ??MRuddy on 07/09/2017 4:40 PM Report To 1 ID: Report To 1 Name: , Report To 1 FAX: Report To 2 ID: Report To 2 Name: , Report To 2 FAX: Report To 3 ID: Report To 3 Name: , Report To 3 FAX: NextGen Order #: Procedure Note Miscellaneous, Not In File - 07/09/2017 [facility] [address] [place] [id number] MPI Imaging Report Patient Name: MACIE BRISENO GPatient ID: [id number] : [id number] Date: 07/08/2017 12:09:22 AM Gender: FAccession #: [id number] Tech: Location: OPT Ref.Physician: RICHIE HOUSTON Height(Cm): BSA: Weight(Kg): Heart Rate: 128Order Physician: RICHIE HOUSTON Procedures: Pharmacologic SPECT Report.: Myocardial perfusion imaging with Sestamibi SPECT at rest and post regadenoson (Lexiscan) infusion. Indications: Chest Pain. Findings: Procedure Data: One day rest/stress protocol was used. Lexiscan Protocol. Sestamibi injected at rest was 8.2 millicuries. Sestamibi injected at peak exercise was 26.0 millicuries. TID: 0.91. Resting HR 66 bpm. Peak HR: 89 bpm. Predicted Maximal HR 149 bpm. Target HR: 128 bpm. Percent Max Predicted HR Achieved: 59.73 %. Baseline BP: 133/76 mmHg. Peak BP: 111/58 mmHg. Exercise Time: 00:38. Performed By: Marina Cha RN. Reason for Termination: Lexiscan protocol complete. Resting ECG: Sinus rhythm. Inferior lateral T-wave inversion. Post Pharm ECG: Nondiagnostic because of resting ECG abnormalities. Arrhythmia: No arrhythmias seen. Cardiac Symptoms With Stress: Symptoms with stress were Chest pain, neck pain, headache and nausea. Symptoms were resolved with rest and caffeine. BP Response: Blood pressure response is appropriate. Perfusion: Normal perfusion imaging. LV Function: Global left ventricular function is normal. Left ventricular ejection fraction is 75 %. Conclusions: 1. Negative Pharmacologic Stress Myocardial Perfusion Imaging without ischemia or infarct. Heart rate increase is not required for adequate pharmacologic vasodilator stress. 2. Normal Gated Spect study with EF of 75%. Electronically Signed By: Richie Houston MD 2017-07-09 16:40:23 SECURITY TECH CC: CC: Radiologist: RICHIE HOUSTON M.D. Attending: RICHIE HOUSTON M.D. Requesting: RICHIE HOUSTON M.D. Requesting Requesting ID: [id number] Attending Attending ID: [id number] Completed Time: 07/08/2017 12:37 PM Dictated Time: N/A Transcribed Time: 07/09/2017 4:40 PM Signed by: RICHIE HOUSTON M.D. on 07/09/2017 4:40 PM Report To 1 ID: Report To 1 Name: , Report To 1 FAX: Report To 2 ID: Report To 2 Name: , Report To 2 FAX: Report To 3 ID: Report To 3 Name: , Report To 3 FAX: NextGen Order #: Richie Houston MD IMG NM PROCEDURES Edited Re sult - Final * NUCLEAR MEDICINE MYOCARDIAL PERFUSION REPORT (07/08/2017 12:00 AM SECURITY TECH) Anatomical Region Laterality Modality Nuclear Medicine Narrative 07/08/2017 12:00 AM SECURITY TECH Ordered by an unspecified provider. us Historical Provider IMG NM PROCEDURES Final R esult * NUCLEAR MEDICINE MYOCARDIAL PERFUSION REPORT (07/08/2017 12:00 AM SECURITY TECH) Anatomical Region Laterality Modality Nuclear Medicine us Provider Scanning IMG NM PROCEDURES Final Result documented in this encounter Visit Diagnoses Not on filedocumented in this encounter Care Teams Criminal Intelligence Analyst Relationship Specialty Start Date End Date Rg Read MD PCP - General 06/21/13 04/25/20 documented as of this encounter
--- OUTSIDE RECORDS SUMMARY | 2024-07-12 09:01 | XMS_ITS | Encounter Summary ---
Author Organization [facility] Facility Care Team Providers Care Manager Rn Name Role Phone Rg Read MD Primary Care Provider [phone] Encounter Details Date Type Department Care Team (Latest Contact Info) Description 11/13/2014 3:35 PM CDT - 11/13/2014 4:00 PM CDT Hospital Encounter [facility] Gagan James MD [address] [place] [address] Pre-procedural laboratory examination; Pre-operative cardiovascular examination; Osteoarthrosis, pelvic region and thigh; Essential hypertension; Coronary atherosclerosis; Other chest pain; Meniere's disease; Spinal stenosis in cervical region; Anxiety state; Other depressive disorder; Other and unspecified hyperlipidemia; History of hip joint replacement by other means; Edema; Generalized muscle weakness; Other chronic pain; Hearing loss; Encounter for long-term use of antiplatelets/antithrom botics; Encounter for long-term (current) use of other medications Social History Tobacco Use Types Packs/Day Years Used Date Smoking Tobacco: Never Alcohol Use Standard Drinks/Week Comments Yes 0 (1 standard drink = 0.6 oz pur e alcohol) Comments Unknown Sex and Gender Information Value Date Recorded Sex Assigned at Not on file Legal Sex Female 9:09 PM YARN MAN Gender Identity Not on file Sexual Orientation Lesbian 05/24/2019 9: 06 AM CDT documented as of this encounter Last Filed Vital Signs Vital Sign Reading Time Taken Comments Blood Pressure - - Pulse - - Temperature - - Respiratory Rate - - Oxygen Saturation - - Inhaled Oxygen Concentration - - Weight - - Height 165.1 cm (5' 5 ) 07/07/2014 6:29 PM YARN MAN Body Mass Index - - documented in [...] Procedure Name Priority Date/Time Associated Diagnosis Comments PLASMA BASIC METABOLIC PANEL Routine 11/13/2014 5:27 PM CDT BLOOD CELL COUNT Routine 11/13/2014 5:27 PM CDT BLOOD ABO, RH, INDIRECT AB SCREEN Routine 11/13/2014 5:27 PM CDT ELECTROCARDIOGRAPHY (ECG) 11/13/2014 DISCHARGE LABORATORY CUMULATIVE REPORT Routine 11/13/2014 12:00 AM CDT documented in this encounter Results * (ABNORMAL) Plasma basic metabolic panel (11/13/2014 5:27 PM CDT) Sodium 137 135 - 145 mmol/L HISTORICAL RESULTS K, pl 3.1(L) 3.3 - 4.9 mmol/L HISTORICAL RESULTS Chloride 98 97 - 110 mmol/L HISTORICAL RESULTS CO2 28 22 - 32 mmol/L HISTORICAL RESULTS A. gap 11 0 - 16 mmol/L HISTORICAL RESULTS Glucose 83 70 - 199 mg/dl HISTORICAL RESULTS BUN 14 8 - 25 mg/dl HISTORICAL RESULTS Creatinine 0.66 0.60 - 1.10 mg/dl HISTORICAL RESULTS Calcium 9.4 8.6 - 10.3 mg/dl HISTORICAL RESULTS Plasma 11/13/2014 5:27 PM CDT Historical Provider LAB BLOOD ORDERABLES Geovanna l Result HISTORICAL RESULTS * Blood ABO, Rh, indirect ab screen (11/13/2014 5:27 PM CDT) Pathologist [facility] Jake, indirect Negative HISTORICAL RESULTS ABO, Rho(D) A Negative HISTORI DORITA RESULTS Blood specimen (specimen) 11/13/2014 5:27 PM CDT Historical Provider LAB BLOOD ORDERABLES Geovanna l Result HISTORICAL RESULTS * Blood cell count [CBC] express (11/13/2014 5:27 PM CDT) Pathologist [facility] WBC 5.9 3.8 - 9.8 K/cumm HISTORICAL RESULTS RBC 4.68 3.90 - 5.00 M/cumm HISTORICAL RESULTS Hgb 12.9 12.1 - 15.1 g/dl HISTORICAL RESULTS Hct 39.1 36.1 - 44.3 % HISTORICAL RESULTS MCV 83.5 80.0 - 97.6 fl HISTORICAL RESULTS MCH 27.7 26.7 - 33.7 pg HISTORICAL RESULTS MCHC 33.1 32.7 - 35.5 g/dl HISTORICAL RESULTS Rdw 14.3 11.8 - 14.6 % HISTORICAL RESULTS Platelets 311 140 - 440 K/cumm HISTORICAL RESULTS MPV 7.9 6.8 - 10.4 fl HISTORICAL RESULTS Blood specimen (specimen) 11/13/2014 5:27 PM CDT us Historical Provider MD LAB BLOOD ORDERABLES Geovanna l Result HISTORICAL RESULTS * Discharge Laboratory Cumulative Report (11/13/2014 12:00 AM CDT) 11/13/2014 Narrative HISTORICAL RESULTS - 11/14/2014 3:19 AM CDT ?[facility] ?Department of Laboratories ? [address] [facility] [address] ? [place] [address] Patient Name: ??MACIE BRISENO [facility] Rec Number: [id number] Fin Number: ?[id number] Date: ?1945 Sex/Age: ? Female 69 years Admit Date: ?11/13/2014 Discharge Date: 11/13/2014 Doctor: ?Gagan An Facility: ?[facility] Location: ?CPAP Chart Printed: 11/14/2014 03:19 ?? * Abnormal ?? C Critical ?? f Footnote ?? ^ Corrected ?? L Low ?? H High ? i Interp Data ?? @ Reference Lab ? Chart Type:Periodic ? SELECTED ELECTROLYTES ?Test: Sodium ? Plasma Potassium ??Chloride ? Reference: [135-145] ??[3.3-4.9] ? [97-110] ? Units: mmol/L ? mmol/L ?mmol/L 11/13/2014 ?? 17:27:00 ?? 137 ?3.1 ??L ?98 ?Test: Total CO2 ??Anion Gap ? Reference: [22-32] ?[0-16] ? Units: mmol/L ? mmol/L 11/13/2014 ?? 17:27:00 ?? 28 ? 11 ? STANDARD BLOOD CHEMISTRY ?Test: BUN ? Creatinine ?? Glucose ?? Total Calcium ? Reference: [8-25] ??[0.60-1.10] ??[70-199] ??[8.6-10.3] ? Units: mg/dL ?? mg/dL ?mg/dL ? mg/dL 11/13/2014 ?? 17:27:00 ?? 14 ?0.66 ? 83 ?9.4 ? TRANSFUSION MEDICINE ?Test: Indirect Jake. ??ABO/Rh Pat Interp ? Reference: ? Units: 11/13/2014 ?? 17:27:00 ?? Negative ?A Negative us Historical Provider LAB BLOOD ORDERABLES Geovanna l Result HISTORICAL RESULTS * ELECTROCARDIOGRAPHY (ECG) (11/13/2014) Narrative 11/13/2014 Ordered by an unspecified provider. us Historical Provider ECG ORDERABLES Final Res ult documented in this encounter Visit Diagnoses Diagnosis Pre-procedural laboratory examination Pre-operative cardiovascular examination Osteoarthrosis, pelvic region and thigh Essential hypertension Unspecified essential hypertension Coronary atherosclerosis Coronary atherosclerosis of unspecified type of vessel, stebbins or graft Other chest pain Meniere's disease Spinal stenosis in cervical region Anxiety state Anxiety state, unspecified Other depressive disorder Other and unspecified hyperlipidemia History of hip joint replacement by other means Edema Generalized muscle weakness Muscle weakness (generalized) Other chronic pain Hearing loss Unspecified hearing loss Encounter for long-term use of antiplatelets/antithrombotics Encounter for long-term (current) use of antiplatelets/antithrombotics Encounter for long-term (current) use of other medications documented in this encounter Care Teams Manager Rn Relationship Specialty Start Date End Date Rg Read MD PCP - General 06/21/13 04/25/20 documented as of this encounter
--- OUTSIDE RECORDS SUMMARY | 2024-07-12 09:01 | XMS_ITS | Encounter Summary ---
Author Organization [facility] Facility Care Team Providers Care Calendering Machine Operator Name Role Phone Rg Read MD Primary Care Provider [phone] Encounter Details Date Type Department Care Team (Late st Contact Info) Description 05/18/2014 - 05/18/2014 11:59 PM CDT Hospital Encounter [facility] Antoine Yuen MD 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 Gender Identity Not on file Sexual Orientation [...] route every day 90 3 05/21/2012 7 triamterene-hydro CHLOROthiazide (MAXZIDE,DYAZIDE) 37.5-25 mg per tablet take 1 tablet by oral route every day 0 06/15/2012 9 triamterene-hydro CHLOROthiazide (MAXZIDE,DYAZIDE) 37.5-25 mg per tablet take 1 tablet by oral route every day 0 06/15/2012 7 documented as of this encounter Plan of Treatment Not on file documented as of this encounter Procedures Procedure Name Priority Date/Time Associated Diagnosis Comments XR PELVIS 1 OR 2 VIEWS Routine 05/18/2014 10:16 AM CDT documented in this encounter Results * XR Pelvis (RadLink) 1 View (05/18/2014 10:16 AM CDT) Anatomical Region Laterality Modality Body, Pelvis N/A Radiographic Harleen ging 05/18/2014 10:1 6 AM CDT Narrative 05/18/2014 12:27 PM CDT MARLY CANDELARIA M.D. AGUSTINA VICTORIA M.D. FINAL REPORT The radiology attending physician has personally reviewed this study, and has reviewed and/or edited this written report and agrees with it. ACC# ??Date Time ??Exam [id number] May 18, 2014 10:16:00 [id number] Pelvis 1 or 2 views ACC# ??Date Time ??Exam [id number] May 18, 2014 10:16:00 [id number] Pelvis 1 or 2 views EXAMINATION: ?Pelvis 1 or 2 views HISTORY: ??Hip pain FINDINGS: ?? A 2 view examination of the pelvis was submitted for interpretation with comparison the prior examination dated 12/26/2011. There has been interval development of moderate to severe left hip joint space narrowing. The right hip joint space is normal. There is no fracture. The femoral heads are well-seated. There is severe degenerative disc disease at L4-L5. ?? IMPRESSION: Progressive moderate to severe left hip joint space narrowing. 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 ?? Requested By: LIONEL KEITH Dictated By: ?? AGUSTINA VICTORIA M.D. ??on May 18 2014 10:30A This document has been electronically signed by: MARLY CANDELARIA M.D. on May 18 2014 12:27P [id number] Procedure Note Provider, MD Emmanuel - 11/18/2016 MARLY CANDELARIA M.D. AGUSTINA VICTORIA M.D. FINAL REPORT The radiology attending physician has personally reviewed this study, and has reviewed and/or edited this written report and agrees with it. ACC# Date Time Exam [id number] May 18, 2014 10:16:00 [id number] Pelvis 1 or 2 views ACC# Date Time Exam [id number] May 18, 2014 10:16:00 [id number] Pelvis 1 or 2 views EXAMINATION: Pelvis 1 or 2 views HISTORY: Hip pain FINDINGS: A 2 view examination of the pelvis was submitted for interpretation with comparison the prior examination dated 12/26/2011. There has been interval development of moderate to severe left hip joint space narrowing. The right hip joint space is normal. There is no fracture. The femoral heads are well-seated. There is severe degenerative disc disease at L4-L5. IMPRESSION: Progressive moderate to severe left hip joint space narrowing. 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 Requested By: LIONEL KEITH Dictated By: AGUSTINA VICTORIA M.D. on May 18 2014 10:30A This document has been electronically signed by: MARLY CANDELARIA M.D. on May 18 2014 12:27P [id number] us Historical Provider IMRicky XR PROCEDURES Final R esult documented in this encounter Visit Diagnoses Diagnosis Pain in joint, pelvic region and thigh Low back pain Lumbago documented in this encounter Care Teams Calendering Machine Operator Relationship Specialty Start Date End Date Rg Read MD PCP - General 06/21/13 04/25/20 documented as of this encounter
--- OUTSIDE RECORDS SUMMARY | 2024-07-12 09:01 | XMS_ITS | Encounter Summary ---
Author Organization [facility] Facility Care Team Providers Care Materials Planning Manager Name Role Phone Rg Read MD Primary Care Provider [phone] Encounter Details Date Type Department Care Team (Late st Contact Info) Description 10/26/2014 - 10/26/2014 11:59 PM CDT Hospital Encounter [facility] Antoine Yuen MD [address] [place] [address] Social History Tobacco Use Types Packs/Day Years Used Date Smoking Tobacco: Never Alcohol Use Standard Drinks/Week Comments Yes 0 (1 standard drink = 0.6 oz pur e alcohol) Comments Unknown Sex and Gender Information Value Date Recorded Sex Assigned at Not on file Legal Sex Female 9:09 PM LINKER UP Gender Identity Not on file Sexual Orientation [...] on filedocumented in this encounter Care Teams Materials Planning Manager Relationship Specialty Start Date End Date Rg Read MD PCP - General 06/21/13 04/25/20 documented as of this encounter
--- OUTSIDE RECORDS SUMMARY | 2024-07-12 09:01 | XMS_ITS | Encounter Summary ---
Author Organization [facility] [place] Facility Care Team Providers Care Director Of Archives Name Role Phone Rg Read MD Primary Care Provider [phone] Encounter Details Date Type Department Care Team (Latest Contact Info) Description 06/28/2014 2:28 PM HOSPICE ADMINISTRATOR - 06/28/2014 4:00 PM [facility] Hospital Encounter [facility] Gagan An MD [address] [place] [address] Other specified pre-operative examination; Localized osteoarthrosis, pelvic region and thigh; Other and unspecified hyperlipidemia; Arthropathy; Meniere's disease; Allergic rhinitis; Anxiety state; Other depressive disorder; Other and unspecified angina pectoris; Degeneration of thoracic or thoracolumbar intervertebral disc; Degeneration of lumbar or lumbosacral intervertebral disc; Other acquired absence of organ; Encounter for long-term (current) use of other medications Social History Tobacco Use Types Packs/Day Years Used Date Smoking Tobacco: Never Alcohol Use Standard Drinks/Week Comments Yes 0 (1 standard drink = 0.6 oz pur e alcohol) Comments Unknown Sex and Gender Information Value Date Recorded Sex Assigned at Not on file Legal Sex Female 9:09 PM HOSPICE ADMINISTRATOR Gender Identity Not on file Sexual [...] Name Priority Date/Time Associated Diagnosis Comments PLASMA PROTHROMBIN TIME (PT) Routine 06/28/2014 4:24 PM HOSPICE ADMINISTRATOR BLOOD ABO, RH, INDIRECT AB SCREEN Routine 06/28/2014 4:24 PM HOSPICE ADMINISTRATOR ELECTROCARDIOGRAPHY (ECG) 06/28/2014 DISCHARGE LABORATORY CUMULATIVE REPORT Routine 06/28/2014 12:00 AM HOSPICE ADMINISTRATOR documented in this encounter Results * Blood ABO, Rh, indirect ab screen (06/28/2014 4:24 PM HOSPICE ADMINISTRATOR) Jake, indirect Negative HISTORICAL RESULTS ABO, Rho(D) A Negative HISTORI DORITA RESULTS Blood specimen (specimen) 06/28/2014 4:24 PM HOSPICE ADMINISTRATOR Historical Provider LAB BLOOD ORDERABLES Geovanna huynh Result Performing Organization Address [facility] Co de Phone Number HISTORICAL RESULTS * Plasma prothrombin time (PT) (06/28/2014 4:24 PM HOSPICE ADMINISTRATOR) Prothrombin time (PT) 10.7 9.0 - 12.0 seconds HISTORICAL RESULTS INR 0.96 0.90 - 1.20 HISTORIC AL RESULTS Comment: Interpretive Data Inpatient therapeutic ranges* Atrial fibrillation ?2.0-3.0 INR Venous thrombo-embolism ?2.0-3.0 INR Bioprosthetic heart valve ?* Mechanical heart valve, bileaflet or tilting disk,aortic position ? 2.0-3.0 INR All other,or bileaflet or tilting disk, in mitral position ? 2.5-3.5 INR *See the pharmacy resource directory (PHRED) for an updated copy of the Tool Book at [email or web address] Current Interpretive Data was last revised 2011. Plasma 06/28/2014 4:24 PM HOSPICE ADMINISTRATOR Gagan An MD LAB BLOOD ORDERABLES Geovanna l Result HISTORICAL RESULTS * Discharge Laboratory Cumulative Report (06/28/2014 12:00 AM HOSPICE ADMINISTRATOR) 06/28/2014 Narrative HISTORICAL RESULTS - 06/29/2014 3:21 AM HOSPICE ADMINISTRATOR ?[facility] ?Department of Laboratories ? [address] [facility] [address] ? [place], [place] [address] Patient Name: ??MACIE BRISENO [facility] Rec Number: [id number] Fin Number: ?[id number] Date: ?1945 Sex/Age: ? Female 68 years Admit Date: ?06/28/2014 Discharge Date: 06/28/2014 Doctor: ?Gagan An Facility: ?[facility] Location: ?CPAP Chart Printed: 06/29/2014 03:21 ?? * Abnormal ?? C Critical ?? f Footnote ?? ^ Corrected ?? L Low ?? H High ? i Interp Data ?? @ Reference Lab ? Chart Type:Periodic ? TRANSFUSION MEDICINE ?Test: Indirect Jake. ??ABO/Rh Pat Interp ? Reference: ? Units: 06/28/2014 ?? 16:24:00 ?? Negative ?A Negative us Historical Provider MD LAB BLOOD ORDERABLES Geovanna amina Result HISTORICAL RESULTS * ELECTROCARDIOGRAPHY (ECG) (06/28/2014) Narrative 06/28/2014 Ordered by an unspecified provider. us Historical Provider ECG ORDERABLES Final Res ult documented in this encounter Visit Diagnoses Diagnosis Other specified pre-operative examination Localized osteoarthrosis, pelvic region and thigh Other and unspecified hyperlipidemia Arthropathy Unspecified arthropathy, site unspecified Meniere's disease Allergic rhinitis Allergic rhinitis, cause unspecified Anxiety state Anxiety state, unspecified Other depressive disorder Other and unspecified angina pectoris Degeneration of thoracic or thoracolumbar intervertebral disc Degeneration of lumbar or lumbosacral intervertebral disc Other acquired absence of organ Encounter for long-term (current) use of other medications documented in this encounter Care Teams Director Of Archives Relationship Specialty Start Date End Date Rg Read MD PCP - General 06/21/13 04/25/20 documented as of this encounter
--- OUTSIDE RECORDS SUMMARY | 2024-07-12 09:01 | XMS_ITS | Encounter Summary ---
Author Organization [facility] Facility Care Team Providers Care Full Stack Web Developer Name Role Phone Rg Read MD Primary Care Provider [phone] Encounter Details Date Type Department Care Team (Latest Contact Info) Description 11/24/2014 11:49 AM CDT - 11/26/2014 2:28 PM CDT Hospital Encounter [facility] Gagan James MD [address] [place] [address] Localized osteoarthrosis, pelvic region and thigh; History of hip joint replacement by other means; Pure hypercholesterolemia; Other and unspecified hyperlipidemia; Essential hypertension; Degeneration of intervertebral disc; Meniere's disease; Anxiety state; Other depressive disorder; Encounter for long-term (current) use of aspirin Social History Tobacco Use Types Packs/Day Years Used Date Smoking Tobacco: Never Alcohol Use Standard Drinks/Week Comments Yes 0 (1 standard drink = 0.6 oz pur e alcohol) Comments Unknown Sex and Gender Information Value Date Recorded Sex Assigned at Not on file 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 Gender Identity Not on file Sexual Orientation Lesbian 05/24/2019 9: 06 AM CDT documented as of this encounter Last Filed Vital Signs Vital Sign Reading Time Taken Comments Blood Pressure 103/57 11/26/2014 9:00 AM CDT Pulse 81 11/26/2014 9:00 AM CDT Temperature - - Respiratory Rate - - Oxygen Saturation 98% 11/26/2014 9:00 AM CDT Inhaled Oxygen Concentration - - Weight 75.3 kg (165 lb 15.8 oz) 015 8:36 PM CDT Height 165.1 cm (5' 5 ) 11/24/2014 8:36 PM CDT Body Mass Index 27.62 11/24/2014 8:36 PM CDT documented in this encounter Medications [...] 06/15/2012 7 documented as of this encounter Miscellaneous Notes * Op Note - Provider, MD Emmanuel - 11/24/2014 12:00 AM CDT Patient: Citlaly Briseno Reg No: [id number] U H #: [id number] Admit Dt.: 11/24/2014 : 1945 Pt Type: 100 Room No: OTHER Attending: Gagan An M.D. Surgeon: Gagan An M.D. Dictating: Gagan An M.D. Service Dt: 11/24/2014 OPERATIVE REPORT SURGEON: Gagan An M.D. FIRST MECHANIC FOREMAN: Dipti Rosenbaum M.D. SECOND/THIRD MECHANIC FOREMAN: PRIMO Lima PREOPERATIVE DIAGNOSIS: Osteoarthritis of the right hip. POSTOPERATIVE DIAGNOSIS: Osteoarthritis of the right hip. PROCEDURE: Right total hip arthroplasty. IMPLANTS:Acetabular component - A Victor size 52 mm cup. Acetabular screws - One screw, 40 mm. Acetabular liner - A 36 mm internal diameter polyethylene liner. Femoral component - Femoral stem is a Corail size 12 high offset stem. Femoral head - A 36 plus 5. SURGICAL DETAILS: 1) Incision type - Mini posterior incision, 10 cm. 2) Estimated blood loss - 200 . 3) Urine output - 400. 4) Crystalloid replacement - 2,800. 5) Colloid replacement - None. 6) Blood replacement: None. 7) Anesthesia type: Spinal. INDICATIONS FOR PROCEDURE: This patient presents for total hip arthroplasty secondary to end stage disease of the hip. The patient was seen in my outpatient clinic. The patient has failed nonoperative treatment. We have decided to proceed with total hip arthroplasty surgery. We have discussed risks, complications, and benefits of the procedure. All questions have been answered preoperatively. PROCEDURE: The patient was brought to the operating room and placed on the operating room table in the supine position. After anesthesia was established, the patient was positioned in the lateral decubitus position with the operative side up. All bony prominences and peripheral nerves were padded. A surgical time out was taken to confirm the operative side. The patient was given prophylactic antibiotics. The hip was prepped and draped in usual sterile fashion. We made a posterolateral approach to the hip. The incision was carried through the subcutaneous tissue to the underlying fascia tino and G-max fascia. These were incised in line with the skin incision. The Charnley retractor was placed. The piriformis and external rotators were released. The hip was dislocated. Femoral neck cut was made according to the preoperative plan. The acetabulum was exposed. The acetabulum was reamed to give an adequate press fit. The acetabular component was impacted into position targeting 45 degrees of abduction and 20 degrees of anteversion. Screw fixation was utilized to enhance acetabular component fixation. The acetabular liner was placed and impacted into position. The liner locking mechanism engaged. We then turned to the femoral side. Femoral preparation was started with a box osteotome and Charnley awl. The canal was prepared for the final broach. The final broach was impacted into position in approximately 15-20 degrees of anteversion. The trial head was placed and the hip reduced. Leg length measurements on the table demonstrated good reconstruction of the leg lengths according to our preoperative plan. The hip stability was assessed. The hip was stable in extension and external rotation. The hip was stable in flexion, adduction of 20 degrees and internal rotation to 60 degrees. The hip was stable at 90 degrees of flexion and internal rotation to 60 degrees. The hip was stable in full flexion. The hip was dislocated, the trial broach was removed. The final stem was inserted in routine fashion. After placement of the stem, the prosthetic head was placed and the hip reduced. Again, leg length assessment and stability assessment of the hip were excellent. I was pleased with the reconstruction. The wound was irrigated, and a deep drain placed. The posterior capsule was repaired with #5 Ethibond through drill holes in the greater trochanter. A deep Hemovac drain was placed. The piriformis was repaired with #5 Ethibond through the gluteus medius insertion into the greater trochanter. Fascia tino was repaired with #1 Vicryl. Subcutaneous tissue, 2-0 Monocryl. Skin shirley. The wound was cleansed and dressed with Acticoat and a sterile dressing. The patient tolerated the procedure well. There were no complications. The patient was delivered to the recovery room in good condition. The sponge and needle counts were correct. Dr. An was present for all critical portions of the case including assessment of bone cuts, implantation of prosthesis, and final trialing after the prosthesis was in place. Dr. Rosenbaum was immediately available for all noncritical portions of the procedure. COMPLICATIONS: No complications. OPERATIVE FINDINGS: None. SPONGE/INSTRUMENT/NEEDLE COUNTS: Instrument and needle counts were correct x two. CONDITION ON DISCHARGE FROM OPERATING ROOM: The patient's disposition was stable to recovery. OPTIONAL OP NOTE ADDENDUMS: 1) Fellow expanded duty dental assistant Dr. Dipti Rosenbaum, a fellow in Adult Reconstructive Surgery, assisted on this procedure. There was no senior level orthopaedic resident available to assist in the procedure. Therefore, the assistance of Dr. Dipti Rosenbaum was required for performance of this case. His assistance was medically necessary, as there is no senior level orthopaedic resident available. His activities include helping me with the surgical exposure, placement and maintenance of retractors, as well as manipulation of the leg so I could perform the critical portions, and help with wound closure at the end. Electronically Signed By Gagna An M.D. 12/13/2014 04:03 P Mariah Simmons/kishore #[id number] Editing MT: TD: 11/24/2014 18:18:00 cc: Orthopedic Billing Gagan An M.D. documented in this encounter Plan of Treatment Not on file documented as of this encounter Procedures Procedure Name Priority Date/Time Associated Diagnosis Comments DISCHARGE LABORATORY CUMULATIVE REPORT Routine 11/26/2014 12:00 AM CDT PLASMA BASIC METABOLIC PANEL Routine 11/25/2014 11:07 PM CDT BLOOD CELL COUNT (CBC) Routine 11/25/2014 11:07 PM CDT BLOOD CELL COUNT (CBC) Routine 11/25/2014 7:54 AM CDT PLASMA BASIC METABOLIC PANEL Routine 11/25/2014 3:17 AM CDT XR PELVIS 1 OR 2 VIEWS Routine 11/24/2014 5:39 PM CDT PLASMA BASIC METABOLIC PANEL Routine 11/24/2014 5:16 PM CDT BLOOD CELL COUNT (CBC) Routine 11/24/2014 5:16 PM CDT BLOOD ELECTROLYTE, HEMOGLOBIN, HEMATOCRIT PANEL, I-STAT Routine 11/24/2014 2:45 PM CDT BLOOD ABO, RH, INDIRECT AB SCREEN Routine 11/24/2014 2:01 PM CDT documented in this encounter Results * Discharge Laboratory Cumulative Report (11/26/2014 12:00 AM CDT) 11/26/2014 Narrative HISTORICAL RESULTS - 11/26/2014 3:18 PM CDT ?[facility] ?Department of Laboratories ? [address] [facility] [address] ? [place] [address] Patient Name: ??BRYANT CITLALY G Med Rec Number: [id number] Fin Number: ?[id number] Date: ?1945 Sex/Age: ? Female 69 years Admit Date: ?11/24/2014 Discharge Date: 11/26/2014 Doctor: ?Gagan An Facility: ?[facility] Location: ?[id number] Chart Printed: 11/26/2014 15:18 ?? * Abnormal ?? C Critical ?? f Footnote ?? ^ Corrected ?? L Low ?? H High ? i Interp Data ?? @ Reference Lab ?Chart Type:Cumulative ? SELECTED ELECTROLYTES ?Test: Sodium ? Plasma Potassium ??Chloride ? Reference: [135-145] ??[3.3-4.9] ? [97-110] ? Units: mmol/L ? mmol/L ?mmol/L 11/25/2014 ?? 23:07:00 ?? 140 ?3.6 ? 103 11/25/2014 ?? 03:17:00 ?? 141 ?3.5 ? 108 11/24/2014 ?? 17:16:56 ?? 143 ?3.2 ??L ?106 ?Test: Total CO2 ??Anion Gap ? Reference: [22-32] ?[0-16] ? Units: mmol/L ? mmol/L 11/25/2014 ?? 23:07:00 ?? 28 ? 9 11/25/2014 ?? 03:17:00 ?? 24 ? 9 11/24/2014 ?? 17:16:56 ?? 25 ? 12 ? STANDARD BLOOD CHEMISTRY ?Test: BUN ? Creatinine ?? Glucose ?? Total Calcium ? Reference: [8-25] ??[0.60-1.10] ??[70-199] ??[8.6-10.3] ? Units: mg/dL ?? mg/dL ?mg/dL ? mg/dL 11/25/2014 ?? 23:07:00 ?? 10 ?0.85 ? 109 ? 9.4 11/25/2014 ?? 03:17:00 ?? 9 ? 0.65 ? 94 ?8.5 ??L 11/24/2014 ?? 17:16:56 ?? 11 ?0.67 ? 122 ? 8.9 ? COMPLETE BLOOD COUNT ?Test: WBC ?RBC ?Hgb ? Reference: [3.8-9.8] ??[3.90-5.00] ??[12.1-15.1] ? Units: K/cumm ? M/cumm ? g/dL 11/25/2014 ?? 23:07:00 ?? 7.9 ?3.87 ??L ?11.0 ??L ? COMPLETE BLOOD COUNT ?Test: WBC ?RBC ?Hgb ? Reference: [3.8-9.8] ??[3.90-5.00] ??[12.1-15.1] ? Units: K/cumm ? M/cumm ? g/dL 11/25/2014 ?? 07:54:00 ?? 6.9 ?3.77 ??L ?10.6 ??L 11/24/2014 ?? 17:16:56 ?? 5.8 ?4.31 ? 12.1 ?Test: Hct ?Platelet Ct ??MCV ? Reference: [36.1-44.3] ??[140-440] ?[80.0-97.6] ? Units: % ?K/cumm ? fL 11/25/2014 ?? 23:07:00 ?? 32.6 ??L ?256 ?84.4 11/25/2014 ?? 07:54:00 ?? 31.9 ??L ?211 ??f ? 84.5 11/24/2014 ?? 17:16:56 ?? 36.7 ? 280 ?85.1 11/25/2014 07:54:00 ??Platelet Ct: No clot detected in sample. ?Test: MCH ?MCHC ? RDW ? Reference: [26.7-33.7] ??[32.7-35.5] ??[11.8-14.6] ? Units: pg ? g/dL ? % 11/25/2014 ?? 23:07:00 ?? 28.4 ? 33.6 ? 14.8 ??H 11/25/2014 ?? 07:54:00 ?? 28.0 ? 33.2 ? 14.9 ??H 11/24/2014 ?? 17:16:56 ?? 28.1 ? 33.0 ? 14.8 ??H ?Test: MPV ? Reference: [6.8-10.4] ? Units: fL 11/25/2014 ?? 23:07:00 ?? 8.3 11/25/2014 ?? 07:54:00 ?? 8.3 11/24/2014 ?? 17:16:56 ?? 7.6 ? AUTOMATED WHITE CELL DIFFERENTIAL ?Test: Neut Pct Auto ??Lymph Pct Auto ??Boise Pct Auto ? Reference: [38.7-74.5] ?[20.0-54.3] ? [4.3-13.5] ? Units: % ?% ? % 11/25/2014 ?? 23:07:00 ?? 78.0 ??H ?12.0 ??L ? 7.1 11/25/2014 ?? 07:54:00 ?? 74.7 ??H ?17.3 ??L ? 6.6 11/24/2014 ?? 17:16:56 ?? 64.7 ? 26.8 ?6.7 ?Test: Eos Pct Auto ??Baso Pct Auto ??Neut Abs Auto ? Reference: [0.0-6.0] ? [0.0-3.0] ?[1.8-6.6] ? Units: % ? % ?K/cumm 11/25/2014 ?? 23:07:00 ?? 2.6 ? 0.3 ?6.2 11/25/2014 ?? 07:54:00 ?? 1.1 ? 0.3 ?5.1 11/24/2014 ?? 17:16:56 ?? 1.5 ? 0.3 ?3.7 ? AUTOMATED WHITE CELL DIFFERENTIAL ?Test: Lymph Abs Auto ??Boise Abs Auto ??Eos Abs Auto ? Reference: [1.2-3.3] ? [0.2-1.2] ?[0.0-0.5] ? Units: K/cumm ?K/cumm ? K/cumm 11/25/2014 ?? 23:07:00 ?? 1.0 ??L ?0.6 ?0.2 11/25/2014 ?? 07:54:00 ?? 1.2 ? 0.5 ?0.1 11/24/2014 ?? 17:16:56 ?? 1.6 ? 0.4 ?0.1 ?Test: Baso Abs Auto ? Reference: [0.0-0.2] ? Units: K/cumm 11/25/2014 ?? 23:07:00 ?? 0.0 11/25/2014 ?? 07:54:00 ?? 0.0 11/24/2014 ?? 17:16:56 ?? 0.0 ? TRANSFUSION MEDICINE ?Test: Indirect Jake. ??ABO/Rh Pat Interp ? Reference: ? Units: 11/24/2014 ?? 14:01:00 ?? Negative ?A Negative ?POINT OF CARE TESTS ? Chemistry ?Test: Potassium iPOC ? Reference: [3.3-4.9] ? Units: mmol/L 11/24/2014 ?? 14:45:00 ?? 3.4 ? CANCELLED TESTS Date ?Time ?Test ?Cancel Reason 11/25/2014 ??03:17:00 ??CBC ? Clotted specimen 11/25/2014 ??03:17:00 ??Morph Screen ??Clotted specimen Historical Provider LAB BLOOD ORDERABLES Geovanna l Result Performing Organization Address [facility] de Phone Number HISTORICAL RESULTS * Plasma basic metabolic panel (11/25/2014 11:07 PM CDT) Pathologist [facility] Sodium 140 135 - 145 mmol/L HISTORICAL RESULTS K, pl 3.6 3.3 - 4.9 mmol/L HISTORICAL RESULTS Chloride 103 97 - 110 mmol/L HISTORICAL RESULTS CO2 28 22 - 32 mmol/L HISTORICAL RESULTS A. gap 9 0 - 16 mmol/L HISTORICAL RESULTS Glucose 109 70 - 199 mg/dl HISTORICAL RESULTS BUN 10 8 - 25 mg/dl HISTORICAL RESULTS Creatinine 0.85 0.60 - 1.10 mg/dl HISTORICAL RESULTS Calcium 9.4 8.6 - 10.3 mg/dl HISTORICAL RESULTS Plasma 11/25/2014 11:0 7 PM CDT Dipti Rosenbaum LAB BLOOD ORDERABLES Final Re sult Performing Organization Address [facility] de Phone Number HISTORICAL RESULTS * (ABNORMAL) Blood cell count (CBC) (11/25/2014 11:07 PM CDT) Pathologist [facility] WBC 7.9 3.8 - 9.8 K/cumm HISTORICAL RESULTS RBC 3.87(L) 3.90 - 5.00 M/cumm HISTORICAL RESULTS Hgb 11.0(L) 12.1 - 15.1 g/dl HISTORICAL RESULTS Hct 32.6(L) 36.1 - 44.3 % HISTORICAL RESULTS MCV 84.4 80.0 - 97.6 fl HISTORICAL RESULTS MCH 28.4 26.7 - 33.7 pg HISTORICAL RESULTS MCHC 33.6 32.7 - 35.5 g/dl HISTORICAL RESULTS Rdw 14.8(H) 11.8 - 14.6 % HISTORICAL RESULTS Platelets 256 140 - 440 K/cumm HISTORICAL RESULTS MPV 8.3 6.8 - 10.4 fl HISTORICAL RESULTS Neutrophils, abs 6.2 1.8 - 6.6 K/cumm HISTORICAL RESULTS Lymphocytes, abs 1.0(L) 1.2 - 3.3 K/cumm HISTORICAL RESULTS Monocytes, absolute 0.6 0.2 - 1.2 K/cumm HISTORICAL RESULTS Eosinophils, abs 0.2 0.0 - 0.5 K/cumm HISTORICAL RESULTS Basophils, abs 0.0 0.0 - 0.2 K/cumm HISTORICAL RESULTS Neutrophils 78.0(H) 38.7 - 74.5 % HISTORICAL RESULTS Lymphocytes 12.0(L) 20.0 - 54.3 % HISTORICAL RESULTS Monos 7.1 4.3 - 13.5 % HISTORICAL RESULTS Eosinophils 2.6 0.0 - 6.0 % HISTORICAL RESULTS Basophils 0.3 0.0 - 3.0 % HISTORICAL RESULTS Blood specimen (specimen) 11/25/2014 11:07 PM CDT Dipti Rosenbaum LAB BLOOD ORDERABLES Final Re sult HISTORICAL RESULTS * (ABNORMAL) Blood cell count (CBC) (11/25/2014 7:54 AM CDT) WBC 6.9 3.8 - 9.8 K/cumm HISTORICAL RESULTS RBC 3.77(L) 3.90 - 5.00 M/cumm HISTORICAL RESULTS Hgb 10.6(L) 12.1 - 15.1 g/dl HISTORICAL RESULTS Hct 31.9(L) 36.1 - 44.3 % HISTORICAL RESULTS MCV 84.5 80.0 - 97.6 fl HISTORICAL RESULTS MCH 28.0 26.7 - 33.7 pg HISTORICAL RESULTS MCHC 33.2 32.7 - 35.5 g/dl HISTORICAL RESULTS Rdw 14.9(H) 11.8 - 14.6 % HISTORICAL RESULTS Platelets 211 140 - 440 K/cumm HISTORICAL RESULTS Comment:{No clot detected in sample.} MPV 8.3 6.8 - 10.4 fl HISTORICAL RESULTS Neutrophils, abs 5.1 1.8 - 6.6 K/cumm HISTORICAL RESULTS Lymphocytes, abs 1.2 1.2 - 3.3 K/cumm HISTORICAL RESULTS Monocytes, absolute 0.5 0.2 - 1.2 K/cumm HISTORICAL RESULTS Eosinophils, abs 0.1 0.0 - 0.5 K/cumm HISTORICAL RESULTS Basophils, abs 0.0 0.0 - 0.2 K/cumm HISTORICAL RESULTS Neutrophils 74.7(H) 38.7 - 74.5 % HISTORICAL RESULTS Lymphocytes 17.3(L) 20.0 - 54.3 % HISTORICAL RESULTS Monos 6.6 4.3 - 13.5 % HISTORICAL RESULTS Eosinophils 1.1 0.0 - 6.0 % HISTORICAL RESULTS Basophils 0.3 0.0 - 3.0 % HISTORICAL RESULTS Blood specimen (specimen) 11/25/2014 7:54 AM CDT Hebert Solorzano LAB BLOOD ORDERABLES Final Re sult Performing Organization Address [facility] Co de Phone Number HISTORICAL RESULTS * (ABNORMAL) Plasma basic metabolic panel (11/25/2014 3:17 AM CDT) Pathologist [facility] Sodium 141 135 - 145 mmol/L HISTORICAL RESULTS K, pl 3.5 3.3 - 4.9 mmol/L HISTORICAL RESULTS Chloride 108 97 - 110 mmol/L HISTORICAL RESULTS CO2 24 22 - 32 mmol/L HISTORICAL RESULTS A. gap 9 0 - 16 mmol/L HISTORICAL RESULTS Glucose 94 70 - 199 mg/dl HISTORICAL RESULTS BUN 9 8 - 25 mg/dl HISTORICAL RESULTS Creatinine 0.65 0.60 - 1.10 mg/dl HISTORICAL RESULTS Calcium 8.5(L) 8.6 - 10.3 mg/dl HISTORICAL RESULTS Plasma 11/25/2014 3:17 AM CDT Dipti Rosenbaum LAB BLOOD ORDERABLES Final Re sult Performing Organization Address City/[facility]/ZIP Co de Phone Number HISTORICAL RESULTS * XR Pelvis (RadLink) 1 View (11/24/2014 5:39 PM CDT) Anatomical Region Laterality Modality Body, Pelvis N/A Radiographic Harleen ging 11/24/2014 5:39 PM CDT Narrative 11/25/2014 12:54 PM CDT MARLY CANDELARIA M.D. FINAL REPORT ACC# ??Date Time ??Exam [id number] November 24, 2014 17:39:00 [id number] Pelvis 1 or 2 views EXAMINATION: ?Pelvis 1 or 2 views HISTORY: ??Hip osteoarthritis FINDINGS: ?? A portable AP view the pelvis is compared to the examination dated 09/04/2014. There has been interval total right hip arthroplasty with components overlying the expected positions. Soft tissue gas and surgical shirley are noted. A temperature probe overlies the bladder. A total left hip arthroplasty is in unchanged position. IMPRESSION: ?? Interval total right hip arthroplasty with components overlying the expected positions. Requested By: DIPTI ROSENBAUM M.D. Dictated By: ?? MARLY CANDELARIA M.D. ??on November ??2014 12:54P This document has been electronically signed by: MARLY CANDELARIA M.D. on November?2014 12:54P [id number] Procedure Note Provider, MD Emmanuel - 11/18/2016 MARLY CANDELARIA M.D. FINAL REPORT ACC# Date Time Exam [id number] November 24, 2014 17:39:00 [id number] Pelvis 1 or 2 views EXAMINATION: Pelvis 1 or 2 views HISTORY: Hip osteoarthritis FINDINGS: A portable AP view the pelvis is compared to the examination dated 09/04/2014. There has been interval total right hip arthroplasty with components overlying the expected positions. Soft tissue gas and surgical shirley are noted. A temperature probe overlies the bladder. A total left hip arthroplasty is in unchanged position. IMPRESSION: Interval total right hip arthroplasty with components overlying the expected positions. Requested By: DIPTI ROSENBAUM M.D. Dictated By: MARLY CANDELARIA M.D. on Nov 25 2014 12:54P This document has been electronically signed by: MARLY CANDELARIA M.D. on Nov 25 2014 12:54P [id number] us Historical Provider MD SMITH XR PROCEDURES Final R esult * (ABNORMAL) Plasma basic metabolic panel (11/24/2014 5:16 PM CDT) Pathologist [facility] Sodium 143 135 - 145 mmol/L HISTORICAL RESULTS K, pl 3.2(L) 3.3 - 4.9 mmol/L HISTORICAL RESULTS Chloride 106 97 - 110 mmol/L HISTORICAL RESULTS CO2 25 22 - 32 mmol/L HISTORICAL RESULTS A. gap 12 0 - 16 mmol/L HISTORICAL RESULTS Glucose 122 70 - 199 mg/dl HISTORICAL RESULTS BUN 11 8 - 25 mg/dl HISTORICAL RESULTS Creatinine 0.67 0.60 - 1.10 mg/dl HISTORICAL RESULTS Calcium 8.9 8.6 - 10.3 mg/dl HISTORICAL RESULTS Plasma 11/24/2014 5:16 PM CDT Dipti Rosenbaum LAB BLOOD ORDERABLES Final Re sult HISTORICAL RESULTS * (ABNORMAL) Blood cell count (CBC) (11/24/2014 5:16 PM CDT) Pathologist [facility] WBC 5.8 3.8 - 9.8 K/cumm HISTORICAL RESULTS RBC 4.31 3.90 - 5.00 M/cumm HISTORICAL RESULTS Hgb 12.1 12.1 - 15.1 g/dl HISTORICAL RESULTS Hct 36.7 36.1 - 44.3 % HISTORICAL RESULTS MCV 85.1 80.0 - 97.6 fl HISTORICAL RESULTS MCH 28.1 26.7 - 33.7 pg HISTORICAL RESULTS MCHC 33.0 32.7 - 35.5 g/dl HISTORICAL RESULTS Rdw 14.8(H) 11.8 - 14.6 % HISTORICAL RESULTS Platelets 280 140 - 440 K/cumm HISTORICAL RESULTS MPV 7.6 6.8 - 10.4 fl HISTORICAL RESULTS Neutrophils, abs 3.7 1.8 - 6.6 K/cumm HISTORICAL RESULTS Lymphocytes, abs 1.6 1.2 - 3.3 K/cumm HISTORICAL RESULTS Monocytes, absolute 0.4 0.2 - 1.2 K/cumm HISTORICAL RESULTS Eosinophils, abs 0.1 0.0 - 0.5 K/cumm HISTORICAL RESULTS Basophils, abs 0.0 0.0 - 0.2 K/cumm HISTORICAL RESULTS Neutrophils 64.7 38.7 - 74.5 % HISTORICAL RESULTS Lymphocytes 26.8 20.0 - 54.3 % HISTORICAL RESULTS Monos 6.7 4.3 - 13.5 % HISTORICAL RESULTS Eosinophils 1.5 0.0 - 6.0 % HISTORICAL RESULTS Basophils 0.3 0.0 - 3.0 % HISTORICAL RESULTS Blood specimen (specimen) 11/24/2014 5:16 PM CDT Dipti Rosenbaum LAB BLOOD ORDERABLES Final Re sult Performing Organization Address [facility] de Phone Number HISTORICAL RESULTS * Blood electrolyte, hemoglobin, hematocrit panel, I-Stat (11/24/2014 2:45 PM CDT) Potassium, bld 3.4 3.3 - 4.9 mmol/L HISTORICAL RESULTS Blood specimen (specimen) 11/24/2014 2:45 PM CDT Gagan An MD LAB BLOOD ORDERABLES Geovanna l Result Performing Organization Address [facility] de Phone Number HISTORICAL RESULTS * Blood ABO, Rh, indirect ab screen (11/24/2014 2:01 PM CDT) ABO, Rho(D) A Negative HISTORI DORITA RESULTS Jake, indirect Negative HISTORICAL RESULTS Blood specimen (specimen) 11/24/2014 2:01 PM CDT Gagan An MD LAB BLOOD ORDERABLES Geovanna l Result Performing Organization Address [facility] de Phone Number HISTORICAL RESULTS documented in this encounter Visit Diagnoses Diagnosis Localized osteoarthrosis, pelvic region and thigh History of hip joint replacement by other means Pure hypercholesterolemia Other and unspecified hyperlipidemia Essential hypertension Unspecified essential hypertension Degeneration of intervertebral disc Degeneration of intervertebral disc, site unspecified Meniere's disease Anxiety state Anxiety state, unspecified Other depressive disorder Encounter for long-term (current) use of aspirin documented in this encounter Care Teams Full Stack Web Developer Relationship Specialty Start Date End Date Rg Read MD PCP - General 06/21/13 04/25/20 documented as of this encounter
--- OUTSIDE RECORDS SUMMARY | 2024-07-12 09:01 | XMS_ITS | Encounter Summary ---
Author Organization [facility] Facility Care Team Providers Care Cobol Engineer Name Role Phone Iza Read MD Primary Care Provider [phone] Encounter Details Date Type Department Care Team (Late st Contact Info) Description 06/12/2014 - 06/12/2014 11:59 PM EVENT PLANNER Hospital Encounter [facility] Gagan An MD [address] [facility] [address] [place] [address] Osteoarthrosis, pelvic region and thigh Social History Tobacco Use Types Packs/Day Years Used Date Smoking Tobacco: Never Alcohol Use Standard Drinks/Week Comments Yes 0 (1 standard drink = 0.6 oz pur e alcohol) Comments Unknown Sex and Gender Information Value Date Recorded Sex Assigned at Not on file Legal Sex Female 9:09 PM EVENT PLANNER Gender Identity Not on file Sexual [...] Diagnosis Comments XR HIP (RADLINK) 1V Routine 06/12/2014 2 :04 PM EVENT PLANNER documented in this encounter Results * XR Hip (Radlink) 1 View (06/12/2014 2:04 PM EVENT PLANNER) Anatomical Region Laterality Modality Lower Extremities, Hip, Pelvis N/A R adiographic Imaging 06/12/2014 2:04 PM EVENT PLANNER Narrative 06/12/2014 3:35 PM EVENT PLANNER IZA CUBA M.D. RANDALL BERRY M.D. FINAL REPORT The radiology attending physician has personally reviewed this study, and has reviewed and/or edited this written report and agrees with it. ACC# ??Date Time ??Exam [id number] Jun 12, 2014 14:04:00 00658 Hip Unilateral 1 view L ACC# ??Date Time ??Exam [id number] Jun 12, 2014 14:04:00 [id number] Hip Unilateral 1 view L EXAMINATION: ?Left hip unilateral one view HISTORY: ??Left hip osteoarthritis, history of left labral tear FINDINGS: ?? Single crosstable lateral view of the hip is read in conjunction with pelvic radiograph dated 05/18/2014. The crosstable lateral examination confirms the severe hip osteoarthritis. Alignment is normal. ?? IMPRESSION: One view examination of the left hip showing severe hip osteoarthritis. ?? Requested By: GAGAN AN M.D. Dictated By: ?? RANDALL BERRY M.D. ??on Jun 12 2014 ??2:33P This document has been electronically signed by: IZA CUBA M.D. on Jun 12 2014 ??3:35P [id number] Procedure Note Provider, MD Emmanuel - 11/18/2016 IZA CUBA M.D. RANDALL BERRY M.D. FINAL REPORT The radiology attending physician has personally reviewed this study, and has reviewed and/or edited this written report and agrees with it. ACC# Date Time Exam [id number] Jun 12, 2014 14:04:00 [id number] Hip Unilateral 1 view L ACC# Date Time Exam [id number] Jun 12, 2014 14:04:00 10139 Hip Unilateral 1 view L EXAMINATION: Left hip unilateral one view HISTORY: Left hip osteoarthritis, history of left labral tear FINDINGS: Single crosstable lateral view of the hip is read in conjunction with pelvic radiograph dated 05/18/2014. The crosstable lateral examination confirms the severe hip osteoarthritis. Alignment is normal. IMPRESSION: One view examination of the left hip showing severe hip osteoarthritis. Requested By: GAGAN AN M.D. Dictated By: RANDALL BERRY M.D. on Jun 12 2014 2:33P This document has been electronically signed by: IZA CUBA M.D. on Jun 12 2014 3:35P [id number] Historical Provider IMG XR PROCEDURES Final R esult documented in this encounter Visit Diagnoses Diagnosis Osteoarthrosis, pelvic region and thigh documented in this encounter Care Teams Cobol Engineer Relationship Specialty Start Date End Date Iza Read MD PCP - General 06/21/13 04/25/20 documented as of this encounter
--- OUTSIDE RECORDS SUMMARY | 2024-07-12 09:01 | XMS_ITS | Encounter Summary ---
Author Organization [facility] Facility Care Team Providers Care Salt Operator Name Role Phone Rg Read MD Primary Care Provider [phone] Encounter Details Date Type Department Care Team (Late st Contact Info) Description 08/07/2014 - 08/07/2014 11:59 PM EMPLOYMENT AND CLAIMS AIDE Hospital Encounter [facility] Gagan An MD [address] [phone] Aftercare following joint replacement; History of hip joint replacement by other means Social History Tobacco Use Types Packs/Day Years Used Date Smoking Tobacco: Never Alcohol Use Standard Drinks/Week Comments Yes 0 (1 standard drink = 0.6 oz pur e alcohol) Comments Unknown Sex and Gender Information Value Date Recorded Sex Assigned at Not on file Legal Sex Female 9:09 PM EMPLOYMENT AND CLAIMS AIDE Gender Identity Not on file Sexual [...] Diagnosis Comments XR HIP (RADLINK) 1V Routine 08/07/2014 1 2:02 PM EMPLOYMENT AND CLAIMS AIDE XR PELVIS 1 OR 2 VIEWS Routine 08/07/2014 12:02 PM EMPLOYMENT AND CLAIMS AIDE documented in this encounter Results * XR Pelvis (RadLink) 1 View (08/07/2014 12:02 PM EMPLOYMENT AND CLAIMS AIDE) Anatomical Region Laterality Modality Body, Pelvis N/A Radiographic Harleen ging 08/07/2014 12:0 2 PM EMPLOYMENT AND CLAIMS AIDE Narrative 08/07/2014 12:05 PM EMPLOYMENT AND CLAIMS AIDE HUNTER FRANCO MD, PHD FINAL REPORT ACC# ??Date Time ??Exam [id number] Aug 07, 2014 12:02:00 [id number] Hip Unilateral 1 view L [id number] Aug 07, 2014 12:02:00 [id number] Pelvis 1 or 2 views EXAMINATION: ?Pelvis 1 or 2 views; left hip unilateral one view HISTORY: ??Left hip osteoarthritis FINDINGS: ??AP view the pelvis excluding the top of both iliac crests and single view left hip are compared to radiographs from 07 July 2014. Again noted is a left total hip arthroplasty in near anatomic position. Skin shirley have been removed and there has been resolution of deep soft tissue gas. Bladder catheter has been removed as well. No fracture. Right hip joint space remains normal. IMPRESSION: ?? 1. Unchanged left total hip arthroplasty in near anatomic position. Requested By: GAGAN AN M.D. Dictated By: ?? HUNTER FRANCO MD, PHD ??on Aug 07 2014 12:05P This document has been electronically signed by: HUNTER FRANCO MD, PHD on Aug 07 2014 12:05P [id number] Procedure Note Provider, MD Emmanuel - 11/18/2016 HUNTER FRANCO MD, PHD FINAL REPORT ACC# Date Time Exam [id number] Aug 07, 2014 12:02:00 [id number] Hip Unilateral 1 view L [id number] Aug 07, 2014 12:02:00 [id number] Pelvis 1 or 2 views EXAMINATION: Pelvis 1 or 2 views; left hip unilateral one view HISTORY: Left hip osteoarthritis FINDINGS: AP view the pelvis excluding the top of both iliac crests and single view left hip are compared to radiographs from 07 July 2014. Again noted is a left total hip arthroplasty in near anatomic position. Skin shirley have been removed and there has been resolution of deep soft tissue gas. Bladder catheter has been removed as well. No fracture. Right hip joint space remains normal. IMPRESSION: 1. Unchanged left total hip arthroplasty in near anatomic position. Requested By: GAGAN AN M.D. Dictated By: HUNTER FRANCO MD, PHD on Aug 07 2014 12:05P This document has been electronically signed by: HUNTER FRANCO MD, PHD on Aug 07 2014 12:05P [id number] us Historical Provider IMG XR PROCEDURES Final R esult * XR Hip (Radlink) 1 View (08/07/2014 12:02 PM EMPLOYMENT AND CLAIMS AIDE) Anatomical Region Laterality Modality Lower Extremities, Hip, Pelvis N/A R adiographic Imaging 08/07/2014 12:0 2 PM EMPLOYMENT AND CLAIMS AIDE Narrative 08/07/2014 12:05 PM EMPLOYMENT AND CLAIMS AIDE HUNTER FRANCO MD, PHD FINAL REPORT ACC# ??Date Time ??Exam [id number] Aug 07, 2014 12:02:00 [id number] Hip Unilateral 1 view L [id number] Aug 07, 2014 12:02:00 [id number] Pelvis 1 or 2 views EXAMINATION: ?Pelvis 1 or 2 views; left hip unilateral one view HISTORY: ??Left hip osteoarthritis FINDINGS: ??AP view the pelvis excluding the top of both iliac crests and single view left hip are compared to radiographs from 07 July 2014. Again noted is a left total hip arthroplasty in near anatomic position. Skin shirley have been removed and there has been resolution of deep soft tissue gas. Bladder catheter has been removed as well. No fracture. Right hip joint space remains normal. IMPRESSION: ?? 1. Unchanged left total hip arthroplasty in near anatomic position. Requested By: GAGAN AN M.D. Dictated By: ?? HUNTER FRANCO MD, PHD ??on Aug 07 2014 12:05P This document has been electronically signed by: HUNTER FRANCO MD, PHD on Aug 07 2014 12:05P [id number] Procedure Note Provider, MD Emmanuel - 11/18/2016 HUNTER FRANCO MD, PHD FINAL REPORT ACC# Date Time Exam [id number] Aug 07, 2014 12:02:00 [id number] Hip Unilateral 1 view L [id number] Aug 07, 2014 12:02:00 [id number] Pelvis 1 or 2 views EXAMINATION: Pelvis 1 or 2 views; left hip unilateral one view HISTORY: Left hip osteoarthritis FINDINGS: AP view the pelvis excluding the top of both iliac crests and single view left hip are compared to radiographs from 07 July 2014. Again noted is a left total hip arthroplasty in near anatomic position. Skin shirley have been removed and there has been resolution of deep soft tissue gas. Bladder catheter has been removed as well. No fracture. Right hip joint space remains normal. IMPRESSION: 1. Unchanged left total hip arthroplasty in near anatomic position. Requested By: GAGAN AN M.D. Dictated By: HUNTER FRANCO MD, PHD on Aug 07 2014 12:05P This document has been electronically signed by: HUNTER FRANCO MD, PHD on Aug 07 2014 12:05P [id number] us Historical Provider MD SMITH XR PROCEDURES Final R esult documented in this encounter Visit Diagnoses Diagnosis Aftercare following joint replacement History of hip joint replacement by other means documented in this encounter Care Teams Salt Operator Relationship Specialty Start Date End Date Rg Read MD PCP - General 06/21/13 04/25/20 documented as of this encounter
--- OUTSIDE RECORDS SUMMARY | 2024-07-12 09:01 | XMS_ITS | Encounter Summary ---
Author Organization [facility] Care Team Providers Care Nuclear Medical Tech Name Role Phone Rg Read MD Primary Care Provider [phone] Encounter Details Date Type Department Care Team (Late st Contact Info) Description 11/26/2015 - 11/26/2015 11:59 PM CDT Hospital Encounter [facility] Vences MD [address] [phone] Aftercare following joint replacement surgery; Presence of both artificial hip joints Social History Tobacco Use Types Packs/Day Years Used Date Smoking Tobacco: Never Alcohol Use Standard Drinks/Week Comments Yes 0 (1 standard drink = 0.6 oz pur e alcohol) Comments Unknown Sex and Gender Information Value Date Recorded Sex Assigned at Not on file Legal Sex Female 9:09 PM DRAFTER Gender Identity Not on file Sexual [...] Name Priority Date/Time Associated Diagnosis Comments XR HIPS BILATERAL AP LATERAL W AP PELVIS Routine 11/26/2015 11:05 AM CDT documented in this encounter Results * XR Hips Bilateral AP Lateral W AP Pelvis (11/26/2015 11:05 AM CDT) Anatomical Region Laterality Modality Lower Extremities, Hip, Pelvis Bilateral R adiographic Imaging 11/26/2015 11:0 5 AM CDT Narrative 11/26/2015 11:19 AM CDT STONEY JUÁREZ M.D. F FINAL REPORT ACC# ??Date Time ??Exam [id number] November 26, 2015 11:05:00 [id number] HipBilat & Pel if done3-4V EXAMINATION: ?? Hips bilateral and pelvis if performed 3-4 views HISTORY: ??Bilateral hip osteoarthritis FINDINGS: ?? AP view of the pelvis and crosstable lateral views of each hip are submitted for interpretation. Comparison is made to the prior examination dated 10/12/2015. There are unchanged bilateral total hip arthroplasties in near-anatomic position. There is no fracture. A small sclerotic focus is seen overlying the right S2 foramen, unchanged. IMPRESSION: ?? Unchanged bilateral total hip arthroplasties in near-anatomic position. Requested By: GAGAN SNYDER M.D. Dictated By: ?? Mariah FIGUEROA ??on November ??2015 11:19A This document has been electronically signed by: Mariah FIGUEROA on November?2015 11:19A [id number] Procedure Note Provider, MD Emmanuel - 11/18/2016 Mariah FIGUEROA FINAL REPORT ACC# Date Time Exam [id number] November 26, 2015 11:05:00 [id number] HipBilat & Pel if done3-4V EXAMINATION: Hips bilateral and pelvis if performed 3-4 views HISTORY: Bilateral hip osteoarthritis FINDINGS: AP view of the pelvis and crosstable lateral views of each hip are submitted for interpretation. Comparison is made to the prior examination dated 10/12/2015. There are unchanged bilateral total hip arthroplasties in near-anatomic position. There is no fracture. A small sclerotic focus is seen overlying the right S2 foramen,unchanged. IMPRESSION: Unchanged bilateral total hip arthroplasties in near-anatomic position. Requested By: GAGAN SNYDER M.D. Dictated By: Mariah FIGUEROA on Nov 26 2015 11:19A This document has been electronically signed by: Mariah FIGUEROA on Nov 26 2015 11:19A [id number] Historical Provider IMG XR PROCEDURES Final R esult documented in this encounter Visit Diagnoses Diagnosis Aftercare following joint replacement surgery Presence of both artificial hip joints documented in this encounter Care Teams Nuclear Medical Tech Relationship Specialty Start Date End Date Rg Read MD PCP - General 06/21/13 04/25/20 documented as of this encounter
--- OUTSIDE RECORDS SUMMARY | 2024-07-12 09:01 | XMS_ITS | Encounter Summary ---
Author Organization [facility] Facility Care Team Providers Care Metallurgy Teacher Name Role Phone Iza Read MD Primary Care Provider [phone] Encounter Details Date Type Department Care Team (Late st Contact Info) Description 10/12/2015 12:33 PM CDT - 10/12/2015 4:00 PM CDT [facility] [address] [place] [address] Aftercare following joint replacement surgery; Presence of right artificial hip joint Social History Tobacco Use Types Packs/Day Years Used Date Smoking Tobacco: Never Alcohol Use Standard Drinks/Week Comments Yes 0 (1 standard drink = 0.6 oz pur e alcohol) Comments Unknown Sex and Gender Information Value Date Recorded Sex Assigned at Not on file Legal Sex Female 9:09 PM VB DEVELOPER Gender Identity Not on file Sexual [...] Priority Date/Time Associated Diagnosis Comments XR HIP 2+ VW Routine 10/12/2015 12:41 PM CDT documented in this encounter Results * XR Hip 2+ VW (10/12/2015 12:41 PM CDT) Anatomical Region Laterality Modality N/A Radiographic Harleen ging 10/12/2015 12:4 1 PM CDT Narrative 10/12/2015 1:22 PM CDT IZA CUBA M.D. FINAL REPORT ACC# ??Date Time ??Exam [id number] Oct 12, 2015 12:41:00 [id number] Hip Uni & Pel if done 3v R EXAMINATION: ? Right hip unilateral, with pelvis if performed, 2 or 3 views HISTORY: ??Right hip osteoarthritis and hip pain FINDINGS: ??An AP examination of the pelvis excludes the top of the iliac bones and sacrum. A crosstable lateral examination of the right hip is also performed. The study is digitally-acquired and compared to a study from 01 January 2015. On the right, there is an unchanged total hip arthroplasty in near anatomic position. There is no polyethylene liner wear or osteolysis. There is no fracture. On the left, there is an unchanged total hip arthroplasty. IMPRESSION: ?? Unchanged right total hip arthroplasty in near anatomic position. Requested By: Dictated By: ?? IZA CUBA M.D. ??on Oct 12 2015 ??1:22P This document has been electronically signed by: IZA CUBA M.D. on Oct 12 2015 ??1:22P [id number] Procedure Note Provider, MD Emmanuel - 11/18/2016 IZA CUBA M.D. FINAL REPORT ACC# Date Time Exam [id number] Oct 12, 2015 12:41:00 [id number] Hip Uni & Pel if done 3v R EXAMINATION: Right hip unilateral, with pelvis if performed, 2 or 3 views HISTORY: Right hip osteoarthritis and hip pain FINDINGS: An AP examination of the pelvis excludes the top of the iliac bones and sacrum. A crosstable lateral examination of the right hip is also performed. The study is digitally-acquired and compared to a study from 01 January 2015. On the right, there is an unchanged total hip arthroplasty in near anatomic position. There is no polyethylene liner wear or osteolysis. There is no fracture. On the left, there is an unchanged total hip arthroplasty. IMPRESSION: Unchanged right total hip arthroplasty in near anatomic position. Requested By: Dictated By: IZA CUBA M.D. on Oct 12 2015 1:22P This document has been electronically signed by: IZA CUBA M.D. on Oct 12 2015 1:22P [id number] us Historical Provider IMG XR PROCEDURES Final R esult documented in this encounter Visit Diagnoses Diagnosis Aftercare following joint replacement surgery Presence of right artificial hip joint documented in this encounter Care Teams Metallurgy Teacher Relationship Specialty Start Date End Date Iza Read MD PCP - General 06/21/13 04/25/20 documented as of this encounter
--- OUTSIDE RECORDS SUMMARY | 2024-07-12 09:01 | XMS_ITS | Encounter Summary ---
Author Organization [facility] Facility Care Team Providers Care Negative Stripper Name Role Phone Rg Read MD Primary Care Provider [phone] Encounter Details Date Type Department Care Team (Latest Contact Info) Description 07/07/2014 7:58 AM DOCUMENT CONTROL MANAGER - 07/09/2014 1:29 PM DOCUMENT CONTROL MANAGER [facility] [address] [facility] [address] [place] [address] Primary localized osteoarthrosis, pelvic region and thigh; Acute posthemorrhagic anemia; Anxiety state; Chest pain; Degeneration of intervertebral disc; Other depressive disorder; Other and unspecified hyperlipidemia; Essential hypertension; Meniere's disease; Personal history of allergy to sulfonamides Social History Tobacco Use Types Packs/Day Years Used Date Smoking Tobacco: Never Alcohol Use Standard Drinks/Week Comments Yes 0 (1 standard drink = 0.6 oz pur e alcohol) Comments Unknown Sex and Gender Information Value Date Recorded Sex Assigned at Not on file Legal Sex Female 9:09 PM DOCUMENT CONTROL MANAGER Gender Identity Not on file Sexual Orientation Lesbian 05/24/2019 9: 06 AM CDT documented as of this encounter Last Filed Vital Signs Vital Sign Reading Time Taken Comments Blood Pressure 106/47 07/09/2014 7:29 AM DOCUMENT CONTROL MANAGER Pulse 110 07/09/2014 7:29 AM DOCUMENT CONTROL MANAGER Temperature - - Respiratory Rate - - Oxygen Saturation 92% 07/09/2014 7:29 AM DOCUMENT CONTROL MANAGER Inhaled Oxygen Concentration - - Weight 75.3 kg (165 lb 15.8 oz) 07/07/2014 6:29 PM DOCUMENT CONTROL MANAGER Height 165.1 cm (5' 5 ) 07/07/2014 6:29 PM DOCUMENT CONTROL MANAGER Body Mass Index 27.62 07/07/2014 6:29 PM DOCUMENT CONTROL MANAGER documented in this encounter Medications at Time [...] Op Note - Provider, MD Emmanuel - 07/07/2014 12:00 AM CST Patient: Citlaly Briseno Reg No: [id number] U H #: [id number] Admit Dt.: 07/07/2014 : 1945 Pt Type: 100 Room No: OTHER Attending: Gagan An M.D. Surgeon: Gagan An M.D. Dictating: Gagan An M.D. Service Dt: 07/07/2014 OPERATIVE REPORT SURGEON: Gagan An M.D. FIRST HYDROGEN POWER PLANT ENGINEER: Joe Bishop M.D. SECOND/THIRD HYDROGEN POWER PLANT ENGINEER: PRIMO Rodriguez PREOPERATIVE DIAGNOSIS: Osteoarthritis of the left hip. POSTOPERATIVE DIAGNOSIS: Osteoarthritis of the left hip. PROCEDURE: Left total hip arthroplasty. IMPLANTS:Acetabular component - DePuy PINNACLE cup size 52 millimeters. Acetabular screws - One screw 40 millimeters Acetabular liner - 36 millimeters internal diameter polyethylene liner. Femoral component - Femoral stem is a CORAIL high offset stem size 12. Femoral head - 36 +12. SURGICAL DETAILS: 1) Incision type - Mini-posterior incision 10 centimeters. 2) Estimated blood loss - 200. 3) Urine output - 200. 4) Crystalloid replacement - 2,000 milliliters. 5) Colloid replacement - None. 6) Blood [...] after the prosthesis was in place. Dr. Bishop was immediately available for all noncritical portions of the procedure. COMPLICATIONS: No complications. OPERATIVE FINDINGS: None. SPONGE/INSTRUMENT/NEEDLE COUNTS: Instrument and needle counts were correct x two. CONDITION ON DISCHARGE FROM OPERATING ROOM: The patient's disposition was stable to recovery. OPTIONAL OP NOTE ADDENDUM: 1) Fellow engineering assistant Dr. Joe Bishop, a fellow in Adult Reconstructive Surgery, assisted on this procedure. There was no senior level orthopaedic resident available to assist in the procedure. Therefore, the assistance of Dr. Joe Bishop was required for performance of this case. His assistance was medically necessary as there was no senior level orthopedic resident available. His activities include helping me with the surgical exposure, placement and maintenance of retractors as well as manipulation of the left so I could perform the critical portions of the case, and help with wound closure at the end. Electronically Signed By Gagan An M.D. 07/18/2014 09:32 A Gagan An M.D. RMN/dxd #[id number] Editing MT: TD: 07/07/2014 12:11:00 cc: Orthopedic Billing Gagan An M.D. documented in this encounter Plan of Treatment Not on file documented as of this encounter Procedures Procedure Name Priority Date/Time Associated Diagnosis Comments PLASMA BASIC METABOLIC PANEL Routine 07/09/2014 12:53 AM DOCUMENT CONTROL MANAGER BLOOD CELL COUNT (CBC) Routine 07/09/2014 12:53 AM DOCUMENT CONTROL MANAGER DISCHARGE LABORATORY CUMULATIVE REPORT Routine 07/09/2014 12:00 AM DOCUMENT CONTROL MANAGER PLASMA BASIC METABOLIC PANEL Routine 07/08/2014 2:22 AM DOCUMENT CONTROL MANAGER BLOOD CELL COUNT (CBC) Routine 07/08/2014 2:22 AM DOCUMENT CONTROL MANAGER XR PELVIS 1 OR 2 VIEWS Routine 07/07/2014 4:50 PM DOCUMENT CONTROL MANAGER PLASMA PROTHROMBIN TIME (PT) Routine 07/07/2014 12:34 PM DOCUMENT CONTROL MANAGER PLASMA BASIC METABOLIC PANEL Routine 07/07/2014 12:34 PM DOCUMENT CONTROL MANAGER BLOOD CELL COUNT (CBC) Routine 07/07/2014 12:34 PM DOCUMENT CONTROL MANAGER BLOOD ABO, RH, INDIRECT AB SCREEN Routine 07/07/2014 7:58 AM DOCUMENT CONTROL MANAGER documented in this encounter Results * Plasma basic metabolic panel (07/09/2014 12:53 AM DOCUMENT CONTROL MANAGER) Pathologist [facility] Sodium 137 135 - 145 mmol/L HISTORICAL RESULTS K, pl 3.5 3.3 - 4.9 mmol/L HISTORICAL RESULTS Chloride 102 97 - 110 mmol/L HISTORICAL RESULTS CO2 25 22 - 32 mmol/L HISTORICAL RESULTS A. gap 10 0 - 16 mmol/L HISTORICAL RESULTS Glucose 112 70 - 199 mg/dl HISTORICAL RESULTS BUN 9 8 - 25 mg/dl HISTORICAL RESULTS Creatinine 0.75 0.60 - 1.10 mg/dl HISTORICAL RESULTS Calcium 9.0 8.6 - 10.3 mg/dl HISTORICAL RESULTS Plasma 07/09/2014 12:5 3 AM DOCUMENT CONTROL MANAGER Joe Bishop LAB BLOOD ORDERABLES Final Resu lt HISTORICAL RESULTS * (ABNORMAL) Blood cell count (CBC) (07/09/2014 12:53 AM DOCUMENT CONTROL MANAGER) Pathologist [facility] WBC 9.3 3.8 - 9.8 K/cumm HISTORICAL RESULTS RBC 3.92 3.90 - 5.00 M/cumm HISTORICAL RESULTS Hgb 11.4(L) 12.1 - 15.1 g/dl HISTORICAL RESULTS Hct 34.1(L) 36.1 - 44.3 % HISTORICAL RESULTS MCV 87.0 80.0 - 97.6 fl HISTORICAL RESULTS MCH 29.1 26.7 - 33.7 pg HISTORICAL RESULTS MCHC 33.5 32.7 - 35.5 g/dl HISTORICAL RESULTS Rdw 12.8 11.8 - 14.6 % HISTORICAL RESULTS Platelets 232 140 - 440 K/cumm HISTORICAL RESULTS MPV 8.5 6.8 - 10.4 fl HISTORICAL RESULTS Neutrophils 74.3 38.7 - 74.5 % HISTORICAL RESULTS Lymphocytes 16.3(L) 20.0 - 54.3 % HISTORICAL RESULTS Monos 7.7 4.3 - 13.5 % HISTORICAL RESULTS Eosinophils 1.3 0.0 - 6.0 % HISTORICAL RESULTS Basophils 0.4 0.0 - 3.0 % HISTORICAL RESULTS Neutrophils, abs 6.9(H) 1.8 - 6.6 K/cumm HISTORICAL RESULTS Lymphocytes, abs 1.5 1.2 - 3.3 K/cumm HISTORICAL RESULTS Monocytes, absolute 0.7 0.2 - 1.2 K/cumm HISTORICAL RESULTS Eosinophils, abs 0.1 0.0 - 0.5 K/cumm HISTORICAL RESULTS Basophils, abs 0.0 0.0 - 0.2 K/cumm HISTORICAL RESULTS Blood specimen (specimen) 07/09/2014 12:53 AM DOCUMENT CONTROL MANAGER us Joe Saez Izaiah LAB BLOOD ORDERABLES Final Resu lt HISTORICAL RESULTS * Discharge Laboratory Cumulative Report (07/09/2014 12:00 AM DOCUMENT CONTROL MANAGER) 07/09/2014 Narrative HISTORICAL RESULTS - 07/09/2014 7:17 PM DOCUMENT CONTROL MANAGER ?[facility] ?Department of Laboratories ? [address] [facility] [place] ? [place] [address] Patient Name: ??CITLALY BRISENO [facility] Rec Number: [id number] Fin Number: ?[id number] Date: ?1945 Sex/Age: ? Female 68 years Admit Date: ?07/07/2014 Discharge Date: 07/09/2014 Doctor: ?Gagan An Facility: ?[facility] Location: ?[id number] Chart Printed: 07/09/2014 19:17 ?? * Abnormal ?? C Critical ?? f Footnote ?? ^ Corrected ?? L Low ?? H High ? i Interp Data ?? @ Reference Lab ?Chart Type:Cumulative ? SELECTED ELECTROLYTES ?Test: Sodium ? Plasma Potassium ??Chloride ? Reference: [135-145] ??[3.3-4.9] ? [97-110] ? Units: mmol/L ? mmol/L ?mmol/L 07/09/2014 ?? 00:53:00 ?? 137 ?3.5 ? 102 07/08/2014 ?? 02:22:00 ?? 142 ?4.0 ? 108 07/07/2014 ?? 12:34:46 ?? 145 ?3.8 ? 110 ?Test: Total CO2 ??Anion Gap ? Reference: [22-32] ?[0-16] ? Units: mmol/L ? mmol/L 07/09/2014 ?? 00:53:00 ?? 25 ? 10 07/08/2014 ?? 02:22:00 ?? 28 ? 6 07/07/2014 ?? 12:34:46 ?? 27 ? 8 ? STANDARD BLOOD CHEMISTRY ?Test: BUN ? Creatinine ?? Glucose ?? Total Calcium ? Reference: [8-25] ??[0.60-1.10] ??[70-199] ??[8.6-10.3] ? Units: mg/dL ?? mg/dL ?mg/dL ? mg/dL 07/09/2014 ?? 00:53:00 ?? 9 ? 0.75 ? 112 ? 9.0 07/08/2014 ?? 02:22:00 ?? 10 ?0.71 ? 89 ?8.6 07/07/2014 ?? 12:34:46 ?? 13 ?0.69 ? 93 ?8.8 ? COMPLETE BLOOD COUNT ?Test: WBC ?RBC ?Hgb ? Reference: [3.8-9.8] ??[3.90-5.00] ??[12.1-15.1] ? Units: K/cumm ? M/cumm ? g/dL 07/09/2014 ?? 00:53:00 ?? 9.3 ?3.92 ? 11.4 ??L ? COMPLETE BLOOD COUNT ?Test: WBC ?RBC ?Hgb ? Reference: [3.8-9.8] ??[3.90-5.00] ??[12.1-15.1] ? Units: K/cumm ? M/cumm ? g/dL 07/08/2014 ?? 02:22:00 ?? 6.9 ?3.76 ??L ?10.9 ??L 07/07/2014 ?? 12:34:46 ?? 10.1 ??H ?3.67 ??L ?10.7 ??L ?Test: Hct ?Platelet Ct ??MCV ? Reference: [36.1-44.3] ??[140-440] ?[80.0-97.6] ? Units: % ?K/cumm ? fL 07/09/2014 ?? 00:53:00 ?? 34.1 ??L ?232 ?87.0 07/08/2014 ?? 02:22:00 ?? 32.8 ??L ?230 ?87.1 07/07/2014 ?? 12:34:46 ?? 31.9 ??L ?231 ?86.8 ?Test: MCH ?MCHC ? RDW ? Reference: [26.7-33.7] ??[32.7-35.5] ??[11.8-14.6] ? Units: pg ? g/dL ? % 07/09/2014 ?? 00:53:00 ?? 29.1 ? 33.5 ? 12.8 07/08/2014 ?? 02:22:00 ?? 28.9 ? 33.2 ? 12.6 07/07/2014 ?? 12:34:46 ?? 29.3 ? 33.7 ? 12.6 ?Test: MPV ? Reference: [6.8-10.4] ? Units: fL 07/09/2014 ?? 00:53:00 ?? 8.5 07/08/2014 ?? 02:22:00 ?? 8.1 07/07/2014 ?? 12:34:46 ?? 7.7 ? AUTOMATED WHITE CELL DIFFERENTIAL ?Test: Neut Pct Auto ??Lymph Pct Auto ??[place] Pct Auto ? Reference: [38.7-74.5] ?[20.0-54.3] ? [4.3-13.5] ? Units: % ?% ? % 07/09/2014 ?? 00:53:00 ?? 74.3 ? 16.3 ??L ? 7.7 07/08/2014 ?? 02:22:00 ?? 69.4 ? 20.5 ?7.4 07/07/2014 ?? 12:34:46 ?? 69.3 ? 22.2 ?6.1 ?Test: Eos Pct Auto ??Baso Pct Auto ??Neut Abs Auto ? Reference: [0.0-6.0] ? [0.0-3.0] ?[1.8-6.6] ? Units: % ? % ?K/cumm 07/09/2014 ?? 00:53:00 ?? 1.3 ? 0.4 ?6.9 ??H 07/08/2014 ?? 02:22:00 ?? 2.4 ? 0.3 ?4.8 07/07/2014 ?? 12:34:46 ?? 2.2 ? 0.2 ?7.0 ??H ?Test: Lymph Abs Auto ??[place] Abs Auto ??Eos Abs Auto ? Reference: [1.2-3.3] ? [0.2-1.2] ?[0.0-0.5] ? Units: K/cumm ?K/cumm ? K/cumm 07/09/2014 ?? 00:53:00 ?? 1.5 ? 0.7 ?0.1 07/08/2014 ?? 02:22:00 ?? 1.4 ? 0.5 ?0.2 07/07/2014 ?? 12:34:46 ?? 2.2 ? 0.6 ?0.2 ? AUTOMATED WHITE CELL DIFFERENTIAL ?Test: Baso Abs Auto ? Reference: [0.0-0.2] ? Units: K/cumm 07/09/2014 ?? 00:53:00 ?? 0.0 07/08/2014 ?? 02:22:00 ?? 0.0 07/07/2014 ?? 12:34:46 ?? 0.0 ? HEMOSTASIS AND THROMBOSIS ?Routine Coagulation Studies ?Test: PT ? INR i ? Reference: [10.0-13.3] ??[0.90-1.20] ? Units: sec 07/07/2014 ?? 12:34:46 ?? 12.0 ? 1.08 07/07/2014 12:34:46 INR: Interpretive Data Inpatient therapeutic ranges* Atrial fibrillation ?2.0-3.0 INR Venous thrombo-embolism ?2.0-3.0 INR Bioprosthetic heart valve ?* Mechanical heart valve, bileaflet or tilting disk,aortic position ? 2.0-3.0 INR All other,or bileaflet or tilting disk, in mitral position ? 2.5-3.5 INR *See the pharmacy resource directory (PHRED) for an updated copy of the Tool Book at [email or web address] Current Interpretive Data was last revised 2011. ? TRANSFUSION MEDICINE ?Test: Indirect Jake. ??ABO/Rh Pat Interp ? Reference: ? Units: 07/07/2014 ?? 07:58:00 ?? Negative ?A Negative us Historical Provider MD LAB BLOOD ORDERABLES Geovanna huynh Result HISTORICAL RESULTS * Plasma basic metabolic panel (07/08/2014 2:22 AM DOCUMENT CONTROL MANAGER) Sodium 142 135 - 145 mmol/L HISTORICAL RESULTS K, pl 4.0 3.3 - 4.9 mmol/L HISTORICAL RESULTS Chloride 108 97 - 110 mmol/L HISTORICAL RESULTS CO2 28 22 - 32 mmol/L HISTORICAL RESULTS A. gap 6 0 - 16 mmol/L HISTORICAL RESULTS Glucose 89 70 - 199 mg/dl HISTORICAL RESULTS BUN 10 8 - 25 mg/dl HISTORICAL RESULTS Creatinine 0.71 0.60 - 1.10 mg/dl HISTORICAL RESULTS Calcium 8.6 8.6 - 10.3 mg/dl HISTORICAL RESULTS Plasma 07/08/2014 2:22 AM DOCUMENT CONTROL MANAGER Joe Bishop LAB BLOOD ORDERABLES Final Resu lt HISTORICAL RESULTS * (ABNORMAL) Blood cell count (CBC) (07/08/2014 2:22 AM DOCUMENT CONTROL MANAGER) MPV 8.1 6.8 - 10.4 fl HISTORICAL RESULTS WBC 6.9 3.8 - 9.8 K/cumm HISTORICAL RESULTS Neutrophils 69.4 38.7 - 74.5 % HISTORICAL RESULTS RBC 3.76(L) 3.90 - 5.00 M/cumm HISTORICAL RESULTS Lymphocytes 20.5 20.0 - 54.3 % HISTORICAL RESULTS Hgb 10.9(L) 12.1 - 15.1 g/dl HISTORICAL RESULTS Monos 7.4 4.3 - 13.5 % HISTORICAL RESULTS Hct 32.8(L) 36.1 - 44.3 % HISTORICAL RESULTS Eosinophils 2.4 0.0 - 6.0 % HISTORICAL RESULTS MCV 87.1 80.0 - 97.6 fl HISTORICAL RESULTS Basophils 0.3 0.0 - 3.0 % HISTORICAL RESULTS MCH 28.9 26.7 - 33.7 pg HISTORICAL RESULTS Neutrophils, abs 4.8 1.8 - 6.6 K/cumm HISTORICAL RESULTS MCHC 33.2 32.7 - 35.5 g/dl HISTORICAL RESULTS Lymphocytes, abs 1.4 1.2 - 3.3 K/cumm HISTORICAL RESULTS Rdw 12.6 11.8 - 14.6 % HISTORICAL RESULTS Monocytes, absolute 0.5 0.2 - 1.2 K/cumm HISTORICAL RESULTS Platelets 230 140 - 440 K/cumm HISTORICAL RESULTS Eosinophils, abs 0.2 0.0 - 0.5 K/cumm HISTORICAL RESULTS Basophils, abs 0.0 0.0 - 0.2 K/cumm HISTORICAL RESULTS Blood specimen (specimen) 07/08/2014 2:22 AM DOCUMENT CONTROL MANAGER Joemanuel Bishop LAB BLOOD ORDERABLES Final Resu lt HISTORICAL RESULTS * XR Pelvis (RadLink) 1 View (07/07/2014 4:50 PM DOCUMENT CONTROL MANAGER) Anatomical Region Laterality Modality Body, Pelvis N/A Radiographic Harleen ging 07/07/2014 4:50 PM DOCUMENT CONTROL MANAGER Narrative 07/08/2014 10:26 AM DOCUMENT CONTROL MANAGER TANNA RIVAS M.D. FINAL REPORT ACC# ??Date Time ??Exam [id number] Jul 07, 2014 16:50:00 [id number] Pelvis 1 or 2 views EXAMINATION: ? 1. Pelvis 1 or 2 views HISTORY: ??Left hip osteoarthritis. Left hip arthroplasty. FINDINGS: ?? Frontal radiograph of the pelvis, excluding the iliac wings, was obtained and is compared to pelvis ??radiograph May 18, 2014. There has been interval left total hip arthroplasty. The components are in near anatomic position. There is no periprosthetic fracture. There is soft tissue gas in the operative bed. There are lateral cutaneous shirley. A catheter projects over the bladder. IMPRESSION: ?? 1. Interval right total hip arthroplasty in near anatomic position. Requested By: JOE BISHOP M.D. Dictated By: ?? TANNA RIVAS M.D. ??on Jul 08 2014 10:26A This document has been electronically signed by: TANNA RIVAS M.D. on Jul 08 2014 10:26A [id number] Procedure Note Provider, MD Emmanuel - 11/18/2016 TANNA RIVAS M.D. FINAL REPORT ACC# Date Time Exam [id number] Jul 07, 2014 16:50:00 [id number] Pelvis 1 or 2 views EXAMINATION: 1. Pelvis 1 or 2 views HISTORY: Left hip osteoarthritis. Left hip arthroplasty. FINDINGS: Frontal radiograph of the pelvis, excluding the iliac wings, was obtained and is compared to pelvis radiograph May 18, 2014. There has been interval left total hip arthroplasty. The components are in near anatomic position. There is no periprosthetic fracture. There is soft tissue gas in the operative bed. There are lateral cutaneous shirley. A catheter projects over the bladder. IMPRESSION: 1. Interval right total hip arthroplasty in near anatomic position. Requested By: JOE BISHOP M.D. Dictated By: TANNA RIVAS M.D. on Jul 08 2014 10:26A This document has been electronically signed by: TANNA RIVAS M.D. on Jul 08 2014 10:26A [id number] Historical Provider MD SMITH XR PROCEDURES Final R esult * Plasma basic metabolic panel (07/07/2014 12:34 PM DOCUMENT CONTROL MANAGER) Sodium 145 135 - 145 mmol/L HISTORICAL RESULTS K, pl 3.8 3.3 - 4.9 mmol/L HISTORICAL RESULTS Chloride 110 97 - 110 mmol/L HISTORICAL RESULTS CO2 27 22 - 32 mmol/L HISTORICAL RESULTS A. gap 8 0 - 16 mmol/L HISTORICAL RESULTS Glucose 93 70 - 199 mg/dl HISTORICAL RESULTS BUN 13 8 - 25 mg/dl HISTORICAL RESULTS Creatinine 0.69 0.60 - 1.10 mg/dl HISTORICAL RESULTS Calcium 8.8 8.6 - 10.3 mg/dl HISTORICAL RESULTS Plasma 07/07/2014 12:3 4 PM DOCUMENT CONTROL MANAGER Joe Bishop LAB BLOOD ORDERABLES Final Resu lt HISTORICAL RESULTS * Plasma prothrombin time (PT) (07/07/2014 12:34 PM DOCUMENT CONTROL MANAGER) Prothrombin time (PT) 12.0 10.0 - 13.3 seconds HISTORICAL RESULTS INR 1.08 0.90 - 1.20 HISTORIC AL RESULTS Comment: Interpretive Data Inpatient therapeutic ranges* Atrial fibrillation ?2.0-3.0 INR Venous thrombo-embolism ?2.0-3.0 INR Bioprosthetic heart valve ?* Mechanical heart valve, bileaflet or tilting disk,aortic position ? 2.0-3.0 INR All other,or bileaflet or tilting disk, in mitral position ? 2.5-3.5 INR *See the pharmacy resource directory (PHRED) for an updated copy of the Tool Book at [email or web address] Current Interpretive Data was last revised 2011. Plasma 07/07/2014 12:3 4 PM DOCUMENT CONTROL MANAGER us Joe Bishop LAB BLOOD ORDERABLES Final Resu lt HISTORICAL RESULTS * (ABNORMAL) Blood cell count (CBC) (07/07/2014 12:34 PM DOCUMENT CONTROL MANAGER) WBC 10.1(H) 3.8 - 9.8 K/cumm HISTORICAL RESULTS RBC 3.67(L) 3.90 - 5.00 M/cumm HISTORICAL RESULTS Hgb 10.7(L) 12.1 - 15.1 g/dl HISTORICAL RESULTS Hct 31.9(L) 36.1 - 44.3 % HISTORICAL RESULTS MCV 86.8 80.0 - 97.6 fl HISTORICAL RESULTS MCH 29.3 26.7 - 33.7 pg HISTORICAL RESULTS MCHC 33.7 32.7 - 35.5 g/dl HISTORICAL RESULTS Rdw 12.6 11.8 - 14.6 % HISTORICAL RESULTS Platelets 231 140 - 440 K/cumm HISTORICAL RESULTS MPV 7.7 6.8 - 10.4 fl HISTORICAL RESULTS Neutrophils 69.3 38.7 - 74.5 % HISTORICAL RESULTS Lymphocytes 22.2 20.0 - 54.3 % HISTORICAL RESULTS Monos 6.1 4.3 - 13.5 % HISTORICAL RESULTS Eosinophils 2.2 0.0 - 6.0 % HISTORICAL RESULTS Basophils 0.2 0.0 - 3.0 % HISTORICAL RESULTS Neutrophils, abs 7.0(H) 1.8 - 6.6 K/cumm HISTORICAL RESULTS Lymphocytes, abs 2.2 1.2 - 3.3 K/cumm HISTORICAL RESULTS Monocytes, absolute 0.6 0.2 - 1.2 K/cumm HISTORICAL RESULTS Eosinophils, abs 0.2 0.0 - 0.5 K/cumm HISTORICAL RESULTS Basophils, abs 0.0 0.0 - 0.2 K/cumm HISTORICAL RESULTS Blood specimen (specimen) 07/07/2014 12:34 PM DOCUMENT CONTROL MANAGER us Joe Bishop LAB BLOOD ORDERABLES Final Resu lt Performing Organization Address City/[facility] Co de Phone Number HISTORICAL RESULTS * Blood ABO, Rh, indirect ab screen (07/07/2014 7:58 AM DOCUMENT CONTROL MANAGER) ABO, Rho(D) A Negative HISTORI DORITA RESULTS Jake, indirect Negative HISTORICAL RESULTS Blood specimen (specimen) 07/07/2014 7:58 AM DOCUMENT CONTROL MANAGER Gagan An MD LAB BLOOD ORDERABLES Geovanna l Result Performing Organization Address [facility] Co de Phone Number HISTORICAL RESULTS documented in this encounter Visit Diagnoses Diagnosis Primary localized osteoarthrosis, pelvic region and thigh Acute posthemorrhagic anemia Anxiety state Anxiety state, unspecified Chest pain Unspecified chest pain Degeneration of intervertebral disc Degeneration of intervertebral disc, site unspecified Other depressive disorder Other and unspecified hyperlipidemia Essential hypertension Unspecified essential hypertension Meniere's disease Personal history of allergy to sulfonamides documented in this encounter Care Teams Negative Stripper Relationship Specialty Start Date End Date Rg Read MD PCP - General 06/21/13 04/25/20 documented as of this encounter
--- OUTSIDE RECORDS SUMMARY | 2024-07-12 09:01 | XMS_ITS | Encounter Summary ---
Author Organization [facility] Facility Care Team Providers Care Performance Makeup Artist Name Role Phone Iza Read MD Primary Care Provider [phone] Encounter Details Date Type Department Care Team (Late st Contact Info) Description 01/01/2015 - 01/01/2015 11:59 PM CDT Hospital Encounter 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 FINAL REPORT ACC# ??Date Time ??Exam [id number] Jan 01, 2015 15:06:00 [id number] Hip Unilateral 1 view R [id number] Jan 01, 2015 15:06:00 [id number] Pelvis 1 or 2 views EXAMINATION: ? 1. Right hip unilateral one view. 2. Pelvis 1 or 2 views. HISTORY: ??Hip osteoarthritis. FINDINGS: ?? A supine AP view the pelvis as well as a crosstable lateral projection of the right hip are submitted for interpretation comparison a prior examination dated 11/24/2014. There is a right total hip arthroplasty in unchanged, near anatomic position. In the interval, soft tissue gas has resolved, and a bladder catheter and lateral cutaneous shirley have been removed. There is no periprosthetic fracture or osteolysis present. A left total hip arthroplasty is present in unchanged position. IMPRESSION: ?? 1. Right total hip arthroplasty in near anatomic position. 2. Left total hip arthroplasty in unchanged position. Requested By: GAGAN AN M.D. Dictated By: ?? IZA DREW M.D. ??on Dec?2014 ??3:13P This document has been electronically signed by: IZA DREW M.D. on Dec ?? 2014 ??3:13P [id number] Procedure Note Provider, MD Emmanuel - 11/18/2016 IZA DREW M.D. FINAL REPORT ACC# Date Time Exam [id number] Jan 01, 2015 15:06:00 [id number] Hip Unilateral 1 view R [id number] Jan 01, 2015 15:06:00 [id number] Pelvis 1 or 2 views EXAMINATION: 1. Right hip unilateral one view. 2. Pelvis 1 or 2 views. HISTORY: Hip osteoarthritis. FINDINGS: A supine AP view the pelvis as well as a crosstable lateral projection of the right hip are submitted for interpretation comparison a prior examination dated 11/24/2014. There is a right total hip arthroplasty in unchanged, near anatomic position. In the interval, soft tissue gas has resolved, and a bladder catheter and lateral cutaneous shirley have been removed. There is no periprosthetic fracture or osteolysis present. A left total hip arthroplasty is present in unchanged position. IMPRESSION: 1. Right total hip arthroplasty in near anatomic position. 2. Left total hip arthroplasty in unchanged position. Requested By: GAGAN AN M.D. Dictated By: IZA DREW M.D. on Jan 01 2015 3:13P This document has been electronically signed by: IZA DREW M.D. on Jan 01 2015 3:13P [id number] us Historical Provider MD IMG XR PROCEDURES Final R esult * XR Hip (Radlink) 1 View (01/01/2015 3:06 PM CDT) Anatomical Region Laterality Modality Lower Extremities, Hip, Pelvis N/A R adiographic Imaging 01/01/2015 3:06 PM CDT Narrative 01/01/2015 3:13 PM CDT IZA DREW M.D. FINAL REPORT ACC# ??Date Time ??Exam Jan 01, 2015 15:06:00 [id number] Hip Unilateral 1 view R [id number] Jan 01, 2015 15:06:00 [id number] Pelvis 1 or 2 views EXAMINATION: ? 1. Right hip unilateral one view. 2. Pelvis 1 or 2 views. HISTORY: ??Hip osteoarthritis. FINDINGS: ?? A supine AP view the pelvis as well as a crosstable lateral projection of the right hip are submitted for interpretation comparison a prior examination dated 11/24/2014. There is a right total hip arthroplasty in unchanged, near anatomic position. In the interval, soft tissue gas has resolved, and a bladder catheter and lateral cutaneous shirley have been removed. There is no periprosthetic fracture or osteolysis present. A left total hip arthroplasty is present in unchanged position. IMPRESSION: ?? 1. Right total hip arthroplasty in near anatomic position. 2. Left total hip arthroplasty in unchanged position. Requested By: GAGAN AN M.D. Dictated By: ?? IZA DREW M.D. ??on Dec ??2014 ??3:13P This document has been electronically signed by: IZA DREW M.D. on Dec ?? 2014 ??3:13P [id number] Procedure Note Provider, MD Emmanuel - 11/18/2016 IZA DREW M.D. FINAL REPORT ACC# Date Time Exam Jan 01, 2015 15:06:00 [id number] Hip Unilateral 1 view R [id number] Jan 01, 2015 15:06:00 [id number] Pelvis 1 or 2 views EXAMINATION: 1. Right hip unilateral one view. 2. Pelvis 1 or 2 views. HISTORY: Hip osteoarthritis. FINDINGS: A supine AP view the pelvis as well as a crosstable lateral projection of the right hip are submitted for interpretation comparison a prior examination dated 11/24/2014. There is a right total hip arthroplasty in unchanged, near anatomic position. In the interval, soft tissue gas has resolved, and a bladder catheter and lateral cutaneous shirley have been removed. There is no periprosthetic fracture or osteolysis present. A left total hip arthroplasty is present in unchanged position. IMPRESSION: 1. Right total hip arthroplasty in near anatomic position. 2. Left total hip arthroplasty in unchanged position. Requested By: GAGAN AN M.D. Dictated By: IZA DREW M.D. on Jan 01 2015 3:13P This document has been electronically signed by: IZA DREW M.D. on Jan 01 2015 3:13P [id number] us Historical Provider MD SMITH XR PROCEDURES Final R esult documented in this encounter Visit Diagnoses Diagnosis Orthopedic aftercare Unspecified orthopedic aftercare documented in this encounter Care Teams Performance Makeup Artist Relationship Specialty Start Date End Date Iza Read MD PCP - General 06/21/13 04/25/20 documented as of this encounter
--- OUTSIDE RECORDS SUMMARY | 2024-07-12 09:02 | XMS_ITS | Encounter Summary ---
Author Organization [facility] Facility Care Team Providers Care Floor Refinisher Name Role Phone Rg Read MD Primary Care Provider [phone] Encounter Details Date Type Department Care Team (Late st Contact Info) Description 03/29/2014 10:58 AM CDT - 03/29/2014 4:00 PM CDT [facility] Luz MD [address] [place] [address] Articular cartilage disorder, pelvic region and thigh Social History Tobacco Use Types Packs/Day Years Used Date Smoking Tobacco: Never Alcohol Use Standard Drinks/Week Comments Yes 0 (1 standard drink = 0.6 oz pur e alcohol) Comments Unknown Sex and Gender Information Value Date Recorded Sex Assigned at Not on file 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 Gender Identity Not on file Sexual [...] Diagnosis Comments FLUORO GUIDED NEEDLE PLACEMENT Routine 03/29/2014 10:51 AM CDT documented in this encounter Results * FLUORO GUIDED NEEDLE PLACEMENT (03/29/2014 10:51 AM CDT) Anatomical Region Laterality Modality Body N/A Radiographic Harleen ging 03/29/2014 10:5 1 AM CDT Narrative 03/29/2014 12:16 PM CDT This examination was converted from a legacy system and did not match a report, either due to it being a non-reportable examination, or a duplicate entry Procedure Note Provider, MD Emmanuel - 03/02/2017 This examination was converted from a legacy system and did not match areport, either due to it being a non-reportable examination, or aduplicate entry Historical Provider MD SMITH FLUOROSCOPY PROCEDURE S Final Result documented in this encounter Visit Diagnoses Diagnosis Articular cartilage disorder, pelvic region and thigh documented in this encounter Care Teams Floor Refinisher Relationship Specialty Start Date End Date Rg Read MD PCP - General 06/21/13 04/25/20 documented as of this encounter
--- OUTSIDE RECORDS SUMMARY | 2024-07-12 09:03 | XMS_ITS | Encounter Summary ---
Author Organization [facility] Facility Care Team Providers Care Variety Performer Name Role Phone Rg Read MD Primary Care Provider [phone] Encounter Details Date Type Department Care Team (Late st Contact Info) Description 08/26/2013 12:52 PM FIELD TRAINER - 08/26/2013 4:00 PM [facility] Hospital Encounter [facility] Antoine uYen MD [address] [place] [address] Lumbosacral spondylosis without myelopathy Social History Tobacco Use Types Packs/Day Years Used Date Smoking Tobacco: Never Alcohol Use Standard Drinks/Week Comments Yes 0 (1 standard drink = 0.6 oz pur e alcohol) Comments Unknown Sex and Gender Information Value Date Recorded Sex Assigned at Not on file Legal Sex Female 9:09 PM [facility] Gender Identity Not on file Sexual Orientation [...] Procedure Name Priority Date/Time Associated Diagnosis Comments ABLATION LUMBAR SACRAL FACET LEFT Routine 08/26/2013 1:23 PM FIELD TRAINER documented in this encounter Results * Ablation Lumbar/Sacral Facet (08/26/2013 1:23 PM FIELD TRAINER) Anatomical Region Laterality Modality Spine Left X-Ray Angiograph y 08/26/2013 1:23 PM FIELD TRAINER Narrative 08/26/2013 1:40 PM FIELD TRAINER This examination was converted from a legacy system and did not match a report, either due to it being a non-reportable examination, or a duplicate entry Procedure Note Provider, MD Emmanuel - 03/02/2017 This examination was converted from a legacy system and did not match areport, either due to it being a non-reportable examination, or aduplicate entry Historical Provider MD SMITH IR PROCEDURES Final R esult documented in this encounter Visit Diagnoses Diagnosis Lumbosacral spondylosis without myelopathy documented in this encounter Care Teams Variety Performer Relationship Specialty Start Date End Date Rg Read MD PCP - General 06/21/13 04/25/20 documented as of this encounter
--- OUTSIDE RECORDS SUMMARY | 2024-07-12 09:03 | XMS_ITS | Encounter Summary ---
Author Organization [facility] Facility Care Team Providers Care Head Of Data Name Role Phone Rg Read MD Primary Care Provider [phone] Encounter Details Date Type Department Care Team (Late st Contact Info) Description 08/18/2012 - 08/18/2012 11:59 PM FRONT DESK ATTENDANT Hospital [facility] Baer MD [address] [address] Active Meniere's disease, cochleovestibular; Perceptive hearing loss, both sides Social History Tobacco Use Types Packs/Day Years Used Date Smoking Tobacco: Never Alcohol Use Standard Drinks/Week Comments Yes 0 (1 standard drink = 0.6 oz pur e alcohol) Comments Unknown Sex and Gender Information Value Date Recorded Sex Assigned at Not on file Legal Sex Female 9:09 PM FRONT DESK ATTENDANT Gender Identity Not on file Sexual Orientation Lesbian 05/24/2019 9: 06 AM CDT documented as of this encounter Medications at Time of Discharge calcium (CALCIO TESSIE) 500 mg tablet 500 mg. 0 06/11/2012 7 diazePAM (VALIUM) 5 mg tablet take 1 [...] Diagnosis Comments DISCHARGE LABORATORY CUMULATIVE REPORT Routine 08/19/2012 9:10 AM FRONT DESK ATTENDANT SERUM RHEUMATOID FACTOR QUANTITATIVE Routine 08/18/2012 6:56 AM FRONT DESK ATTENDANT SERUM C-REACTIVE PROTEIN Routine 08/18/2012 6:56 AM FRONT DESK ATTENDANT BLOOD ERYTHROCYTE SEDIMENTATION RATE (ESR) Routine 08/18/2012 6:56 AM FRONT DESK ATTENDANT documented in this encounter Results * Discharge Laboratory Cumulative Report (08/19/2012 9:10 AM FRONT DESK ATTENDANT) 08/19/2012 9:10 AM FRONT DESK ATTENDANT Narrative HISTORICAL RESULTS - 08/19/2012 9:10 AM FRONT DESK ATTENDANT ? [facility] ? Department of Laboratories ?[facility] [address] [address] ? Department ?Otolaryngology ?[facility]-A Patient Name: ? MACIE BRISENO Med Rec Number: ?? [id number] Date of : ?1945 Gender/Age: ? Female 67 years Doctor: ? Juan Carlos Jackson M.D. Report Date/Time: 08/19/2012 9:10:55 AM ?* Abnormal ??C Critical ??f Footnote ??^ Corrected ??L Low ??H High ?i Interp Data ??@ Reference Lab ?Chart Type: Cumulative ?HEMATOLOGY ?08/18/2012 ?12:56:00 Test ?Units ??Reference ESR ?? 5 ?0-35 08/18/2012 12:56:00 ??ESR: LAB Frequency Standing Order? No Expiration Date: ? SEROLOGY ?08/18/2012 ?12:56:00 Test ?Units ??Reference C-Reactive Protein ??0.9 ? mg/L ?? 0.0-9.9 08/18/2012 12:56:00 ??C Reactive Protein: LAB Frequency Standing Order? No Expiration Date: ? PENDING TESTS Collect Date ??Collect Time ??Order Name ? Order Status 08/18/2012 ?12:56:00 ?Rheumatoid Factor, Quantitative ??Ordered us Historical Provider MD LAB BLOOD ORDERABLES Geovanna l Result Performing Organization Address [facility] de Phone Number HISTORICAL RESULTS * Serum C-reactive protein (08/18/2012 6:56 AM FRONT DESK ATTENDANT) C-RP 0.9 0.0 - 9.9 mg/L HISTORICAL RESULTS Serum 08/18/2012 6:56 AM FRONT DESK ATTENDANT Narrative HISTORICAL RESULTS - 08/19/2012 2:43 AM FRONT DESK ATTENDANT LAB Frequency Standing Order? No Expiration Date: Juan Carlos Jackson MD LAB BLOOD ORDERABLES Final Res ult Performing Organization Address [facility] de Phone Number HISTORICAL RESULTS * Blood erythrocyte sedimentation rate (ESR) (08/18/2012 6:56 AM FRONT DESK ATTENDANT) Erythrocyte sedimentation rate 5.0 0.0 - 35.0 mm/hr HISTORICAL RESULTS Blood specimen (specimen) 08/18/2012 6:56 AM FRONT DESK ATTENDANT Narrative HISTORICAL RESULTS - 08/18/2012 8:44 AM FRONT DESK ATTENDANT LAB Frequency Standing Order? No Expiration Date: Juan Carlos Jackson MD LAB BLOOD ORDERABLES Final Res ult Performing Organization Address [facility] de Phone Number HISTORICAL RESULTS * Serum rheumatoid factor quantitative (08/18/2012 6:56 AM FRONT DESK ATTENDANT) Rheumatoid factor, quant <10 0 - 15 IUnits/ml HISTORICAL RESULTS Serum 08/18/2012 6:56 AM FRONT DESK ATTENDANT Narrative HISTORICAL RESULTS - 08/19/2012 8:11 AM FRONT DESK ATTENDANT LAB Frequency Standing Order? No Expiration Date: us Juan Carlos Jackson MD LAB BLOOD ORDERABLES Final Res ult HISTORICAL RESULTS documented in this encounter Visit Diagnoses Diagnosis Active Meniere's disease, cochleovestibular Active M??ni??re's disease, cochleovestibular Perceptive hearing loss, both sides Sensorineural hearing loss, bilateral documented in this encounter Care Teams Head Of Data Relationship Specialty Start Date End Date Rg Read MD PCP - General 06/17/11 06/20/13 documented as of this encounter
--- OUTSIDE RECORDS SUMMARY | 2024-07-12 09:03 | XMS_ITS | Encounter Summary ---
Author Organization [facility] Facility Care Team Providers Care Painting And Coating Worker Name Role Phone Rg Read MD Primary Care Provider [phone] Encounter Details Date Type Department Care Team (Late st Contact Info) Description 07/05/2013 1:44 PM CHANNEL WORKER - 07/05/2013 4:00 PM [facility] Hospital Encounter [facility] Antoine Yuen MD [address] [place] [address] Pain in joint, pelvic region and thigh Social History Tobacco Use Types Packs/Day Years Used Date Smoking Tobacco: Never Alcohol Use Standard Drinks/Week Comments Yes 0 (1 standard drink = 0.6 oz pur e alcohol) Comments Unknown Sex and Gender Information Value Date Recorded Sex Assigned at Not on file Legal Sex Female 9:09 PM CHANNEL WORKER Gender Identity Not on file Sexual [...] Diagnosis Comments FLUORO GUIDED NEEDLE PLACEMENT Routine 07/05/2013 2:20 PM CHANNEL WORKER documented in this encounter Results * FLUORO GUIDED NEEDLE PLACEMENT (07/05/2013 2:20 PM CHANNEL WORKER) Anatomical Region Laterality Modality Body N/A Radiographic Harlene ging 07/05/2013 2:20 PM CHANNEL WORKER Narrative 07/05/2013 2:30 PM CHANNEL WORKER This examination was converted from a legacy [...] thigh documented in this encounter Care Teams Painting And Coating Worker Relationship Specialty Start Date End Date Rg Read MD PCP - General 06/21/13 04/25/20 documented as of this encounter
--- OUTSIDE RECORDS SUMMARY | 2024-07-12 09:03 | XMS_ITS | Encounter Summary ---
Author Organization [facility] Facility Care Team Providers Care Sizer Machine Name Role Phone Rg Read MD Primary Care Provider Encounter Details Date Type Department Care Team (Latest Contact Info) Description 11/24/2013 10:00 AM CDT - 11/24/2013 4:00 PM CDT [facility] [address] [place] [address] Degeneration of lumbar or lumbosacral intervertebral disc Social History Tobacco Use Types Packs/Day Years Used Date Smoking Tobacco: Never Alcohol Use Standard Drinks/Week Comments Yes 0 (1 standard drink = 0.6 oz pur e alcohol) Comments Unknown Sex and Gender Information Value Date Recorded Sex Assigned at Not on file 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 FINAL REPORT ACC# ??Date Time ??Exam [id number] November 24, 2013 11:17:00 [id number] Spine Lumbar min 4 views EXAMINATION: ?Lumbar spine minimum 4 views HISTORY: ??Lumbar spondylosis FINDINGS: ?? AP, lateral, flexion, and extension views of the lumbar spine are performed with comparison the lumbar spine radiographs on 12/26/2011. There is unchanged grade 1 anterolisthesis of L4 on L5, unchanged in flexion and extension. The vertebral body heights are normal. There is severe unchanged L4-L5 and L5-S1 degenerative disc disease, and mild L3-L4 degenerative disc disease. There is hypomobility of the lumbar spine with flexion and extension. There are cholecystectomy clips in the right upper quadrant. IMPRESSION: ?? 1. Unchanged grade 1 L4 on L5 anterolisthesis, unchanged in flexion and extension. 2. Unchanged severe L4-L5 and L5-S1 degenerative disc disease. Requested By: ANTOINE PRESCOTT M.D. Dictated By: ?? KYMBERLY EDGAR M.D. ??on November?2013 11:28A This document has been electronically signed by: KYMBERLY EDGAR M.D. on November?2013 11:28A Procedure Note Provider, MD Emmanuel - 11/18/2016 KYMBERLY EDGAR M.D. FINAL REPORT ACC# Date Time Exam [id number] November 24, 2013 11:17:00 [id number] Spine Lumbar min 4 views EXAMINATION: Lumbar spine minimum 4 views HISTORY: Lumbar spondylosis FINDINGS: AP, lateral, flexion, and extension views of the lumbar spine are performed with comparison the lumbar spine radiographs on 12/26/2011. There is unchanged grade 1 anterolisthesis of L4 on L5, unchanged in flexion and extension. The vertebral body heights are normal. There is severe unchanged L4-L5 and L5-S1 degenerative disc disease, and mild L3-L4 degenerative disc disease. There is hypomobility of the lumbar spine with flexion and extension. There are cholecystectomy clips in the right upper quadrant. IMPRESSION: 1. Unchanged grade 1 L4 on L5 anterolisthesis, unchanged in flexion and extension. 2. Unchanged severe L4-L5 and L5-S1 degenerative disc disease. Requested By: ANTOINE PRESCOTT M.D. Dictated By: KYMBERLY EDGAR M.D. on Nov 24 2013 11:28A This document has been electronically signed by: KYMBERLY EDGAR M.D. on Nov 24 2013 11:28A Historical Provider MD SMITH XR PROCEDURES Final R esult documented in this encounter Visit Diagnoses Diagnosis Degeneration of lumbar or lumbosacral intervertebral disc documented in this encounter Care Teams Sizer Machine Relationship Specialty Start Date End Date Rg Read MD PCP - General 06/21/13 04/25/20 documented as of this encounter
--- OUTSIDE RECORDS SUMMARY | 2024-07-12 09:03 | XMS_ITS | Encounter Summary ---
Author Organization [facility] Facility Care Team Providers Care Straightedge Man Name Role Phone Rg Read MD Primary Care Provider Encounter Details Date Type Department Care Team (Late st Contact Info) Description 02/02/2012 9:06 AM CDT - 02/02/2012 4:00 PM CDT Hospital Encounter [facility] Salima Gonzalez, [address] [place] [address] Disorder of sacrum Social History Tobacco Use Types Packs/Day Years Used Date Smoking Tobacco: Never Assessed Comments Unknown Sex and Gender Information Value Date Recorded Sex Assigned at Not on file 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
--- OUTSIDE RECORDS SUMMARY | 2024-07-12 09:03 | XMS_ITS | Encounter Summary ---
Author Organization [facility] Facility Care Team Providers Care Shipper/Receiver Name Role Phone Iza Read MD Primary Care Provider [phone] Encounter Details Date Type Department Care Team (Late st Contact Info) Description 01/18/2014 12:15 PM CDT - 01/18/2014 4:00 PM CDT Hospital En[facility] Luz MD [address] [facility] [address] [place] [address] Cervicalgia Social History Tobacco Use Types Packs/Day Years Used Date Smoking Tobacco: Never Alcohol Use Standard Drinks/Week Comments Yes 0 (1 standard drink = 0.6 oz pur e alcohol) Comments Unknown Sex and Gender Information Value Date Recorded Sex Assigned at Not on file Legal Sex Female 9:09 PM 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 FINAL REPORT ACC# ??Date Time ??Exam [id number] Jan 18, 2014 12:28:00 [id number] Spine Cervical 4 or 5 vws EXAMINATION: ? Cervical spine 4 or 5 views HISTORY: ??Cervical spondylosis FINDINGS: ??Four view examination of the cervical spine includes lateral projections in neutral position, flexion, and extension. There are no prior studies for comparison. There is mild degenerative disc disease at C3-C4 and C5-C6 and moderate degenerative disc disease at C4-C5. In neutral position, there is mild anterolisthesis at C3-C4. With flexion, the anterior C3-C4 anterolisthesis increases. With extension, mild retrolistheses develops at C3-C4 and C4-C5. There are no fractures. Moderate central canal stenosis at C4-C5 is most severe in extension. IMPRESSION: ?? Cervical degenerative disc disease, most severe at C4-C5, where retrolisthesis develops with extension, and where there is moderate central canal stenosis. Requested By: ANTOINE PRESCOTT M.D. Dictated By: ?? IZA CUBA M.D. ??on Jan 18 2014 ??1:24P This document has been electronically signed by: IZA CUBA M.D. on Jan 18 2014 ??1:24P Procedure Note Provider, MD Emmanuel - 11/18/2016 IZA CUBA M.D. FINAL REPORT ACC# Date Time Exam [id number] Jan 18, 2014 12:28:00 [id number] Spine Cervical 4 or 5 vws EXAMINATION: Cervical spine 4 or 5 views HISTORY: Cervical spondylosis FINDINGS: Four view examination of the cervical spine includes lateral projections in neutral position, flexion, and extension. There are no prior studies for comparison. There is mild degenerative disc disease at C3-C4 and C5-C6 and moderate degenerative disc disease at C4-C5. In neutral position, there is mild anterolisthesis at C3-C4. With flexion, the anterior C3-C4 anterolisthesis increases. With extension, mild retrolistheses develops at C3-C4 and C4-C5. There are no fractures. Moderate central canal stenosis at C4-C5 is most severe in extension. IMPRESSION: Cervical degenerative disc disease, most severe at C4-C5, where retrolisthesis develops with extension, and where there is moderate central canal stenosis. Requested By: ANTOINE PRESCOTT M.D. Dictated By: IZA CUBA M.D. on Jan 18 2014 1:24P This document has been electronically signed by: IZA CUBA M.D. on Jan 18 2014 1:24P Historical Provider MD SMITH XR PROCEDURES Final R esult documented in this encounter Visit Diagnoses Diagnosis Cervicalgia documented in this encounter Care Teams Shipper/Receiver Relationship Specialty Start Date End Date Iza Read MD PCP - General 06/21/13 04/25/20 documented as of this encounter
--- OUTSIDE RECORDS SUMMARY | 2024-07-12 09:03 | XMS_ITS | Encounter Summary ---
Author Organization [facility] Facility Care Team Providers Care Job Coach/Job Developer Name Role Phone Rg Read MD Primary Care Provider [phone] Encounter Details Date Type Department Care Team (Latest Contact Info) Description 12/26/2011 12:56 PM CDT - 12/26/2011 4:00 PM CDT Hospital Encounter [facility] Salima Gonzalez, [address] [place] [address] Degeneration of lumbar or lumbosacral intervertebral disc; Lumbosacral spondylosis without myelopathy Social History Tobacco Use Types Packs/Day Years Used Date Smoking Tobacco: Never Assessed Comments Unknown Sex and Gender Information Value Date Recorded Sex Assigned at Not on file Legal Sex Female 9:09 PM PRODUCTION EDITOR Gender Identity Not on file Sexual Orientation Lesbian 05/24/2019 9: 06 AM CDT documented as of this encounter Plan of Treatment Not on file documented as of this encounter Visit Diagnoses Diagnosis Degeneration of lumbar or lumbosacral intervertebral disc Lumbosacral spondylosis without myelopathy documented in this encounter Care Teams Job Coach/Job Developer Relationship Specialty Start Date End Date Rg Read MD PCP - General 06/17/11 06/20/13 documented as of this encounter
--- OUTSIDE RECORDS SUMMARY | 2024-07-12 09:03 | XMS_ITS | Encounter Summary ---
Author Organization [facility] Facility Care Team Providers Care Chemical Handler Name Role Phone Rg eRad MD Primary Care Provider [phone] Encounter Details Date Type Department Care Team (Late st Contact Info) Description 12/13/2013 2:00 PM CDT - 12/13/2013 4:00 PM CDT Hospital Encounter [facility] Antoine Mcdaniels MD [address] [facility] [address] [place] [address] Sprain and strain of other specified sites of hip and thigh; Pain in joint, pelvic region and thigh; Accident Social History Tobacco Use Types Packs/Day Years Used Date Smoking Tobacco: Never Alcohol Use Standard Drinks/Week Comments Yes 0 (1 standard drink = 0.6 oz pur e alcohol) Comments Unknown Sex and Gender Information Value Date Recorded Sex Assigned at Not on file 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 Female 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 Gender Identity Not on file Sexual [...] Diagnosis Comments FLUORO GUIDED NEEDLE PLACEMENT Routine 12/13/2013 1:51 PM CDT documented in this encounter Results * FLUORO GUIDED NEEDLE PLACEMENT (12/13/2013 1:51 PM CDT) Anatomical Region Laterality Modality Body N/A Radiographic Harleen ging 12/13/2013 1:51 PM CDT Narrative 12/13/2013 3:05 PM CDT This examination was converted from [...] documented in this encounter Visit Diagnoses Diagnosis Sprain and strain of other specified sites of hip and thigh Pain in joint, pelvic region and thigh Accident Unspecified accident documented in this encounter Care Teams Chemical Handler Relationship Specialty Start Date End Date Rg Read MD PCP - General 06/21/13 04/25/20 documented as of this encounter
--- OUTSIDE RECORDS SUMMARY | 2024-07-12 09:03 | XMS_ITS | Encounter Summary ---
Author Organization [facility] Facility Care Team Providers Care Bleach Range Operator Name Role Phone Rg Read MD Primary Care Provider [phone] Encounter Details Date Type Department Care Team (Latest Contact Info) Description 03/23/2012 10:27 AM CDT - 03/23/2012 4:00 PM CDT Hospital Encounter [facility] Salima Gonzalez, [address] [place] [address] Low back pain; Degeneration of lumbar or lumbosacral intervertebral disc; Congenital spondylolisthesis; Spinal stenosis of lumbar region without neurogenic claudication Social History Tobacco Use Types Packs/Day Years Used Date Smoking Tobacco: Never Assessed Comments Unknown Sex and Gender Information Value Date Recorded Sex Assigned at Not on file Legal Sex Female 9:09 PM PROJECT 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
--- OUTSIDE RECORDS SUMMARY | 2024-07-12 09:03 | XMS_ITS | Encounter Summary ---
Author Organization [facility] Facility Care Team Providers Care Trade Embalmer Name Role Phone Rg Read MD Primary Care Provider [phone] Encounter Details Date Type Department Care Team (Latest Contact Info) Description 11/09/2013 10:30 AM CDT - 11/09/2013 4:00 PM CDT Hospital Encounter [facility]ine Luz MD [address] [facility] [address] [place] [address] Thoracic or lumbosacral neuritis or radiculitis; Lumbosacral spondylosis without myelopathy; Spinal stenosis of lumbar region without neurogenic claudication Social History Tobacco Use Types Packs/Day Years Used Date Smoking Tobacco: Never Alcohol Use Standard Drinks/Week Comments Yes 0 (1 standard drink = 0.6 oz pur e alcohol) Comments Unknown Sex and Gender Information Value Date Recorded Sex Assigned at Not on file Legal Sex Female 9:09 PM WARRANTY COORDINATOR Gender Identity Not on file Sexual [...] as of this encounter Visit Diagnoses Diagnosis Thoracic or lumbosacral neuritis or radiculitis Thoracic or lumbosacral neuritis or radiculitis, unspecified Lumbosacral spondylosis without myelopathy Spinal stenosis of lumbar region without neurogenic claudication documented in this encounter Care Teams Trade Embalmer Relationship Specialty Start Date End Date Rg Read MD PCP - General 06/21/13 04/25/20 documented as of this encounter
== END 2024-07-08 16:57 | disposition home or self-care (01) ==
PROVIDERS: PCP Internal Medicine; Visit Provider Internal Medicine
DX: I48.91 Unspecified atrial fibrillation (principal); R94.6 Abnormal results of thyroid function studies; E78.5 Hyperlipidemia, unspecified; I10 Essential (primary) hypertension; R73.03 Prediabetes; E55.9 Vitamin D deficiency, unspecified; Z79.899 Other long term (current) drug therapy
CPT/HCPCS: 36415; 80053; 80061; 81001; 82306; 83036; 84439; 84443

== ENCOUNTER 2024-11-21 17:37 | Outpatient (CLI) | payer MEDICARE, SELFPAY ==
[2024-11-21 18:01] LABS: Basophils Percent Auto 0.7 % (0.2-1.2); Eosinophils Absolute Auto 0.1 K/mm3 (0-0.3); Eosinophils Percent Auto 1.8 % (0-4.4); Hemoglobin 14.1 g/dL (12.0-15.0); Immature Granulocyte Absolute 0.02 K/mm3 (0.00-0.031); Immature Granulocyte Percent A 0.3 % (0-0.5); Lymphocytes Absolute Auto 1.74 K/mm3 (0.9-3.2); Lymphocytes Percent Auto 28.5 % (18.3-44.2); Mean Corpuscular HGB Conc 33.6 g/dl (32-36); Mean Corpuscular Hemoglobin 29.3 pg (26-34); Mean Corpuscular Volume 87.3 fl (80-100); Mean Platelet Volume 9.5 fl (7.4-10.4); Monocytes Absolute Auto 0.4 K/mm3 (0.1-0.6); Monocytes Percent Auto 6.4 % (2.6-8.5); Neutrophils Absolute Auto 3.8 K/mm3 (1.3-6.7); Neutrophils Percent Auto 62.3 % (45.5-73.1); Platelet Count Result 261 k/mm3 (150-375); Red Blood Count 4.81 M/mm3 (4.2-5.4); Red Cell Distribution Width 13.3 % (11.5-14.5); White Blood Count 6.1 K/mm3 (4.5-10.0)
--- OUTSIDE RECORDS SUMMARY | 2024-11-21 18:34 | XMS_ITS | Encounter Summary ---
Author Organization [facility] Address [address] [place] [address] Care Team Providers Care Security Sales Consultant Name Role Phone Rg Read MD Primary Care Provider Encounter Details Date Type Department Care Team (Late st Contact Info) Description 10/09/2005 Outpatient Historical [facility] Support Services Respiratory Therapy [facility] [address] 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
--- OUTSIDE RECORDS SUMMARY | 2024-11-21 18:34 | XMS_ITS | Encounter Summary ---
Author Organization [facility] Address [address] [place] [address] Care Team Providers Care Heat Treater Apprentice Name Role Phone Rg Read MD Primary Care Provider [phone] Encounter Details Date Type Department Care Team (Late st Contact Info) Description 04/01/2005 Outpatient Historical [facility] [place] 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
--- OUTSIDE RECORDS SUMMARY | 2024-11-21 18:34 | XMS_ITS | Encounter Summary ---
Author Organization [facility] Address 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
--- OUTSIDE RECORDS SUMMARY | 2024-11-21 18:34 | XMS_ITS | Encounter Summary ---
Author Organization [facility] Address [address] [place] [address] Care Team Providers Care Medical Transcription Editor Name Role Phone Rg Read MD Primary Care Provider [phone] Encounter Details Date Type Department Care Team (Late st Contact Info) Description 02/29/2004 Outpatient Historical [facility] Internal Medicine - [address] [address] Rg Read MD [address] [place] [address] Social History Tobacco Use Types Packs/Day Years Used Date Smoking Tobacco: Never Assessed Comments Unknown Sex and Gender Information Value Date Recorded Sex Assigned at Not on file Legal Sex Female 5:17 AM JOB PLACEMENT OFFICER Gender Identity Not on file Sexual Orientation Not on file documented as of this encounter Plan of Treatment Not on file documented as of this encounter Visit Diagnoses Not on filedocumented in this encounter Care Teams Medical Transcription Editor Relationship Specialty Start Date End Date Rg Read MD [address] [place] [phone] PCP - General 03/12/01 10/29/22 documented as of this encounter
--- OUTSIDE RECORDS SUMMARY | 2024-11-21 18:34 | XMS_ITS | Encounter Summary ---
Author Organization [facility] Address [address] [place] [address] Care Team Providers Care Plumbing And Heating Mechanic Name Role Phone Rg Raed MD Primary Care Provider [phone] Encounter Details Date Type Department Care Team (Late st Contact Info) Description 03/15/2007 Outpatient Historical [facility] Internal Medicine - [address] [address] Rg Read MD [address] [place] [phone] Social History Tobacco Use Types Packs/Day Years Used Date Smoking Tobacco: Never Assessed Comments Unknown Sex and Gender Information Value Date Recorded Sex Assigned at Not on file Legal Sex Female 5:17 AM PRODUCE TEAM LEAD Gender Identity Not on file Sexual Orientation Not on file documented as of this encounter Plan of Treatment Not on file documented as of this encounter Visit Diagnoses Not on filedocumented in this encounter Care Teams Plumbing And Heating Mechanic Relationship Specialty Start Date End Date Rg Read MD [address] [place] [phone] PCP - General 03/12/01 10/29/22 documented as of this encounter
--- OUTSIDE RECORDS SUMMARY | 2024-11-21 18:34 | XMS_ITS | Encounter Summary ---
Author Organization [facility] Address [address] [place] [address] Care Team Providers Care Chief Projectionist Name Role Phone Rg Read MD Primary Care Provider [phone] Encounter Details Date Type Department Care Team (Late st Contact Info) Description 09/10/1999 Outpatient Historical [facility] Internal Medicine - [facility] [address] [address] Laquita Parry, Eddie Jackson MD NO ADDRESS ON FILE Social History Tobacco Use Types Packs/Day Years Used Date Smoking Tobacco: Never Assessed Comments Unknown Sex and Gender Information Value Date Recorded Sex Assigned at Not on file Legal Sex Female 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
--- OUTSIDE RECORDS SUMMARY | 2024-11-21 18:34 | XMS_ITS | Encounter Summary ---
Author Organization [facility] Address [address] [place] [address] Care Team Providers Care Clinical Athletic Instructor Name Role Phone Rg Read MD Primary Care Provider [phone] Encounter Details Date Type Department Care Team (Late st Contact Info) Description 03/01/2001 Outpatient Historical [facility] Internal Medicine - [facility] [address] [address] Laquita Parry, Eddie Jackson MD NO ADDRESS ON FILE Social History Tobacco Use Types Packs/Day Years Used Date Smoking Tobacco: Never Assessed Comments Unknown Sex and Gender Information Value Date Recorded Sex Assigned at Not on file Legal Sex Female 5:17 AM GEAR NICKER Gender Identity Not on file Sexual Orientation Not on file documented as of this encounter Plan of Treatment Not on file documented as of this encounter Visit Diagnoses Not on filedocumented in this encounter Care Teams Clinical Athletic Instructor Relationship Specialty Start Date End Date Rg Read MD [address] [place] [phone] PCP - General 03/12/01 10/29/22 documented as of this encounter
--- OUTSIDE RECORDS SUMMARY | 2024-11-21 18:34 | XMS_ITS | Encounter Summary ---
Author Organization [facility] Address 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
--- OUTSIDE RECORDS SUMMARY | 2024-11-21 18:34 | XMS_ITS | Encounter Summary ---
Author Organization [facility] Address [address] [place] [address] Care Team Providers Care Office Services Coordinator Name Role Phone Rg Read MD Primary Care Provider [phone] Encounter Details Date Type Department Care Team (Late st Contact Info) Description 04/13/2000 Outpatient Historical [facility] Internal Medicine - [address] [address] Rg Read MD [address] [place] [phone] Social History Tobacco Use Types Packs/Day Years Used Date Smoking Tobacco: Never Assessed Comments Unknown Sex and Gender Information Value Date Recorded Sex Assigned at Not on file Legal Sex Female 5:17 AM ASSET MANAGEMENT 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
--- OUTSIDE RECORDS SUMMARY | 2024-11-21 18:34 | XMS_ITS | Encounter Summary ---
Author Organization [facility] Address [address] [place] [address] Care Team Providers Care Supervisor Electric Motor Testing Name Role Phone Rg Read MD Primary Care Provider [phone] Encounter Details Date Type Department Care Team (Late st Contact Info) Description 10/28/2001 Outpatient Historical [facility] Internal Medicine - [address] [address] Rg Read MD [address] [place] [phone] Social History Tobacco Use Types Packs/Day Years Used Date Smoking Tobacco: Never Assessed Comments Unknown Sex and Gender Information Value Date Recorded Sex Assigned at Not on file Legal Sex Female 5:17 AM ENTRY LEVEL Gender Identity Not on file Sexual Orientation Not on file documented as of this encounter Plan of Treatment Not on file documented as of this encounter Visit Diagnoses Not on filedocumented in this encounter Care Teams Supervisor Electric Motor Testing Relationship Specialty Start Date End Date Rg Read MD [address] [place] [phone] PCP - General 03/12/01 10/29/22 documented as of this encounter
--- OUTSIDE RECORDS SUMMARY | 2024-11-21 18:34 | XMS_ITS | Encounter Summary ---
Author Organization [facility] Address [address] [place] [address] Care Team Providers Care Service Unit Operator Name Role Phone Rg Read MD Primary Care Provider [phone] Encounter Details Date Type Department Care Team (Late st Contact Info) Description 10/28/2001 Outpatient Historical [facility] Internal Medicine - [address] [address] Rg Read MD [address] [place] [phone] Social History Tobacco Use Types Packs/Day Years Used Date Smoking Tobacco: Never Assessed Comments Unknown Sex and Gender Information Value Date Recorded Sex Assigned at Not on file Legal Sex Female 5:17 AM DOUBLE NEEDLE 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
--- OUTSIDE RECORDS SUMMARY | 2024-11-21 18:34 | XMS_ITS | Encounter Summary ---
Author Organization [facility] Address 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
--- OUTSIDE RECORDS SUMMARY | 2024-11-21 18:34 | XMS_ITS | Encounter Summary ---
Author Organization [facility] Address [address] [place] [address] Care Team Providers Care Algorithm Design Engineer Name Role Phone Rg Read MD Primary Care Provider [phone] Encounter Details Date Type Department Care Team (Late st Contact Info) Description 04/26/1998 Outpatient Historical [facility] Internal Medicine - [address] [address] Rg Read MD [address] [place] [phone] Social History Tobacco Use Types Packs/Day Years Used Date Smoking Tobacco: Never Assessed Comments Unknown Sex and Gender Information Value Date Recorded Sex Assigned at Not on file Legal Sex Female 5:17 AM SENIOR CENTER DIRECTOR Gender Identity Not on file Sexual Orientation Not on file documented as of this encounter Plan of Treatment Not on file documented as of this encounter Visit Diagnoses Not on filedocumented in this encounter Care Teams Algorithm Design Engineer Relationship Specialty Start Date End Date Rg Read MD [address] [place] [phone] PCP - General 03/12/01 10/29/22 documented as of this encounter
--- OUTSIDE RECORDS SUMMARY | 2024-11-21 18:34 | XMS_ITS | Encounter Summary ---
Author Organization [facility] Address 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
--- OUTSIDE RECORDS SUMMARY | 2024-11-21 18:34 | XMS_ITS | Encounter Summary ---
Author Organization [facility] Address 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
--- OUTSIDE RECORDS SUMMARY | 2024-11-21 18:34 | XMS_ITS | Encounter Summary ---
Author Organization [facility] Address [address] [place] [address] Care Team Providers Care Youth Care Specialist Name Role Phone Rg Read MD Primary Care Provider [phone] Encounter Details Date Type Department Care Team (Late st Contact Info) Description 05/29/2000 Outpatient Historical [facility] Internal Medicine - [address] [address] Rg Read MD [address] [place] [phone] Social History Tobacco Use Types Packs/Day Years Used Date Smoking Tobacco: Never Assessed Comments Unknown Sex and Gender Information Value Date Recorded Sex Assigned at Not on file Legal Sex Female 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
--- OUTSIDE RECORDS SUMMARY | 2024-11-21 18:34 | XMS_ITS | Encounter Summary ---
Author Organization [facility] Address [address] [place] [address] Care Team Providers Care Ultimate Hoops Trainer Name Role Phone Rg Read MD Primary Care Provider [phone] Encounter Details Date Type Department Care Team (Late st Contact Info) Description 11/23/2006 Outpatient Historical [facility] Internal Medicine - [address] [address] Rg Read MD [address] [place] [address] Social History Tobacco Use Types Packs/Day Years Used Date Smoking Tobacco: Never Assessed Comments Unknown Sex and Gender Information Value Date Recorded Sex Assigned at Not on file Legal Sex Female 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
--- OUTSIDE RECORDS SUMMARY | 2024-11-21 18:34 | XMS_ITS | Encounter Summary ---
Author Organization [facility] Address [address] [place] [address] Care Team Providers Care Chief Concierge Name Role Phone Rg Read MD Primary Care Provider [phone] Encounter Details Date Type Department Care Team (Late st Contact Info) Description 09/10/2000 Outpatient Historical [facility] Internal Medicine - [address] [address] Rg Read MD [address] [place] [address] Social History Tobacco Use Types Packs/Day Years Used Date Smoking Tobacco: Never Assessed Comments Unknown Sex and Gender Information Value Date Recorded Sex Assigned at Not on file Legal 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
--- OUTSIDE RECORDS SUMMARY | 2024-11-21 18:34 | XMS_ITS | Encounter Summary ---
Author Organization [facility] Address 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
--- OUTSIDE RECORDS SUMMARY | 2024-11-21 18:34 | XMS_ITS | Encounter Summary ---
Author Organization [facility] Address [address] [place] [address] Care Team Providers Care Underwear Welter Name Role Phone Rg Read MD Primary Care Provider [phone] Encounter Details Date Type Department Care Team (Late st Contact Info) Description 05/15/2005 Outpatient Historical [facility] Internal Medicine - [facility] [address] [address] Laquita Parry, Eddie Jackson MD NO ADDRESS ON FILE Social History Tobacco Use Types Packs/Day Years Used Date Smoking Tobacco: Never Assessed Comments Unknown Sex and Gender Information Value Date Recorded Sex Assigned at Not on file Legal 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
--- OUTSIDE RECORDS SUMMARY | 2024-11-21 18:34 | XMS_ITS | Encounter Summary ---
Author Organization [facility] Address 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
--- OUTSIDE RECORDS SUMMARY | 2024-11-21 18:34 | XMS_ITS | Encounter Summary ---
Author Organization [facility] Address [address] [place] [address] Care Team Providers Care Sales Vendor Name Role Phone Rg Read MD Primary Care Provider [phone] Encounter Details Date Type Department Care Team (Late st Contact Info) Description 11/01/1998 Outpatient Historical [facility] Internal Medicine - [facility] [address] [address] Laquita Parry, Eddie Jackson MD NO ADDRESS ON FILE Social History Tobacco Use Types Packs/Day Years Used Date Smoking Tobacco: Never Assessed Comments Unknown Sex and Gender Information Value Date Recorded Sex Assigned at Not on file Legal 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
--- OUTSIDE RECORDS SUMMARY | 2024-11-21 18:34 | XMS_ITS | Encounter Summary ---
Author Organization [facility] Address [address] [place] [address] Care Team Providers Care Program Consultant Name Role Phone Rg Read MD Primary Care Provider [phone] Encounter Details Date Type Department Care Team (Late st Contact Info) Description 11/07/1999 Outpatient Historical [facility] Internal Medicine - [address] [address] Rg Read MD [address] [place] [address] Social History Tobacco Use Types Packs/Day Years Used Date Smoking Tobacco: Never Assessed Comments Unknown Sex and Gender Information Value Date Recorded Sex Assigned at Not on file Legal 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
--- OUTSIDE RECORDS SUMMARY | 2024-11-21 18:34 | XMS_ITS | Encounter Summary ---
Author Organization [facility] Address [address] [place] [address] Care Team Providers Care Rn School Name Role Phone Rg Read MD Primary Care Provider [phone] Encounter Details Date Type Department Care Team (Late st Contact Info) Description 01/19/1998 Outpatient Historical [facility] Internal Medicine - [address] [address] Rg Read MD [address] [place] [address] Social History Tobacco Use Types Packs/Day Years Used Date Smoking Tobacco: Never Assessed Comments Unknown Sex and Gender Information Value Date Recorded Sex Assigned at Not on file Legal Sex Female 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
--- OUTSIDE RECORDS SUMMARY | 2024-11-21 18:34 | XMS_ITS | Clinical Summary ---
Author Organization [facility] Address [address] [place] [address] Care Team Providers Care Motion Graphics Artist Name Role Phone Unavailable Primary Care Provider Unavailabl e Allergies Active Allergy Reactions Criticality Noted Date Comments Sulfa (Sulfonamide Antibiotics) Rash Low 05/17/2009 Sulindac Other (See Comments) Low 04/02/2010 GI upset Medications triamterene-hyd roCHLOROthiazid e (DYAZIDE) 37.5-25 mg capsule Take 1 Capsule [...] mouth daily. 90 Tablet 3 07/12/2019 Active HYDROcodone-omega taminophen (NORCO) 7.5-325 mg Tablet 08/03/2019 Active gabapentin [...] Primary osteoarthritis involving multiple joints 05/17/2009 Immunizations Immunization Administration Dates Next Due (PNEUMOVAX 23)(50 YRS [...] drink = 0.6 oz p ure alcohol) Comments No Sex and Gender Information Value Date Recorded Sex Assigned at Not on file Legal Sex Female 5:17 AM EMAIL PRODUCTION SPECIALIST Gender Identity Not on file Sexual Orientation Not on file Last Filed Vital Signs Vital Sign Reading Time Taken Comments Blood Pressure 128/76 09/07/2019 3:08 PM EMAIL PRODUCTION SPECIALIST Pulse 72 09/07/2019 3:08 PM EMAIL PRODUCTION SPECIALIST Temperature 36.3 C (97.3 F) 03/30/2012 2:13 PM CDT Respiratory Rate 14 09/07/2019 3:08 PM EMAIL PRODUCTION SPECIALIST Oxygen Saturation - - Inhaled Oxygen Concentration - - Weight 77.6 kg (171 lb) 09/07/2019 3:08 PM EMAIL PRODUCTION SPECIALIST Height 170.2 cm (5' 7 ) 09/07/2019 3:08 PM EMAIL PRODUCTION SPECIALIST Body Mass Index 26.78 09/07/2019 3:08 PM EMAIL PRODUCTION SPECIALIST Plan of Treatment Health Maintenance Due Date Last Done Comments DTAP/TDAP/TD VACCINES (1 - Tdap) 1965 OSTEOPOROSIS SCREENING 08/23/2017 08/23/2015, 2009 RSV VACCINE (60+ or ) (1 - 1-dose 75+ series) 2021 INFLUENZA VACCINE (#1) 2024 0, 05/03/2019, 05/04/2018, Additional history exists COLORECTAL SCREENING Discontinued 02/25/2008 Colorectal Cancer Screening Discontinued PNEUMOCOCCAL VACCINE 50+ YEARS Completed 1 , 10/12/2015, 04/26/2010 ZOSTER [...] SITES (08/23/2015) Anatomical Region Laterality Modality Other us Rg Read MD DIAGNOSTIC IMAGING ORDERABLES E dited Result - Final from Last 3 Months or Most Recently Relevant to Health Maintenance Insurance
--- OUTSIDE RECORDS SUMMARY | 2024-11-21 18:35 | XMS_ITS | Referral Summary ---
Author Organization [facility] Care Team Providers Care Track Worker Name Role Phone Enmanuel Gan MD Primary Care Provider [phone] Tg Houston MD Unavailable [phone] Guerrero Hunter DPT Unavailable [phone] Guerrero Weiner BUSINESS SERVICES VICE PRESIDENT Unavailable [phone] Stephen Barth MD Unavailable [phone] Encounters Date Type Department Care Team Description 11/15/2024 3:00 PM CDT Office Visit [facility] [address] [place] [phone] Ashvin Recio III, MD AV block, 2nd degree (Primary Dx); Paroxysmal atrial fibrillation (HCC); Apical variant hypertrophic cardiomyopathy (HCC); Cardiac arrhythmia, unspecified cardiac arrhythmia type; ICD (implantable cardioverter-defibrill ator), dual, in situ 11/15/2024 2:45 PM CDT Ancillary Procedure [facility] [address] [place] [phone] Apical variant hypertrophic cardiomyopathy (HCC) (Primary Dx); ICD (implantable cardioverter-defibrill ator), dual, in situ from Last 3 Months Allergies Active Allergy Reactions Criticality Noted Date Comments Adhesive Rash,Blisters High 04/26/2020 Surgical tape Cefadroxil Rash Medium 02/10/2024 Tolerated Ceftriaxone. Cefadroxil Hives,Itching Medium 02/10/2024 Chlorhexidine Rash Medium 07/13/2020 Gabapentin Other (See comments) Low 04/26/2020 Retain water Sulfa (Sulfonamide Antibiotics) Hives,Rash Medium Medications atorvastatin (LIPITOR) 20 mg tabletIndication s:hyperlipidemia Take 1 tablet (20 mg total) by mouth nightly [address] (CYMBALTA) 60 mg capsuleIndicatio ns:Anxiety with Depression Take 1 capsule (60 mg total) by mouth every morning 3 Active furosemide (LASIX) 40 mg tabletIndication s:Peripheral Edema due to Chronic Heart Failure [The details of the medication are not available because there are pending changes by a home health clinician.] 60 tablet 4 Active Additional Information Patient taking differently:40 mg oralDaily, This medication dose was changed 02/05/24, Indications: Peripheral Edema due to Chronic Heart Failure, Reported on 02/10/2024 amiodarone (PACERONE) 200 mg tabletIndication s:Prevention of Recurrent Atrial Fibrillation Take 2 tablets (400mg) the evening of 12/14/23. Starting 12/15/23, take one tablet (200mg) once a day. Follow up with your mortgage professional within one week of discharge. 30 tablet 4 Active methocarbamoL (ROBAXIN) 750 mg tabletIndication s:Muscle Spasm Take 1 tablet (750 mg total) by mouth every 8 (eight) hours 90 tablet 2 4 Active Eliquis 5 mg tabletIndication s:atrial fibrillation DO NOT TAKE THIS MEDICATION UNTIL AFTER YOU COMPLETE YOUR LOVENOX INJECTIONS (JANUARY 14, 2024). ON JANUARY 14, 2024 YOU MAY RESUME TAKING 5MG BY MOUTH TWICE A DAY. 4 Active acetaminophen 500 mg capsuleIndicatio ns:Pain Take 2 capsules (1,000 mg total) by mouth every 6 (six) hours as needed for pain 4 Active cholecalciferol (VITAMIN D-3) 1,000 unit capsuleIndicatio ns:Vitamin D Deficiency Take 1 capsule (1,000 Units total) by mouth daily Active calcium carbonate (CALCIUM 500 ORAL)Indications :Supplement Take 500 mg by mouth daily. Indications: Supplement Active magnesium citrate and oxide (magnesium citrate,mag oxide) 250 mg capsuleIndicatio ns:hypomagnesemi a Take 250 mg by mouth daily. Indications: low amount of magnesium in the blood Active potassium chloride ER (KLOR-CON) 20 mEq CR tabletIndication s:Prevention of hypokalemia 2/2 diuretic use Take 1 tablet (20 mEq total) by mouth daily Active azelastine (ASTELIN) 137 mcg (0.1 %) nasal spray spray(s), 0 4 Active fluticasone propionate (FLONASE) 50 mcg/actuation nasal spray 1 spray(s), Nasal, daily, 1 each, [place], 0 4 Active sucralfate (Carafate) 1 gram tablet 2 tablets (2 g total) 4 Active doxepin (SINEquan) 25 mg capsule TAKE 1 TO 2 CAPSULES BY MOUTH EVERY DAY AT BEDTIME 4 Active fexofenadine-pse udoephedrine (Kimberly-D 12 Hour) 60-120 mg per 12 hr tablet flutic tablet(s), 0 4 Active metoprolol tartrate (LOPRESSOR) 25 mg immediate release tablet Take 1 tablet (25 mg total) by mouth 2 (two) times a day 60 tablet 11 4 025 Active Active Problems Problem Noted Date Diagnosed Date Osteomyelitis of vertebra, lumbar region 024 Encounter for screening exam ination for sexually transmitted disease 02/09/2024 Assessment & Plan (02/09/2024 12:07 PM CDT): Reviewed STI screening form, no concerns for STI testing today. Infection of lumbar spine 01/06/2024 Assessment & Plan (02/23/2024 9:28 AM [...] arnold valadez, in situ 06/06/2021 Overview (06/06/2021): [place] [employer] DDD Dynagen ICD imp on 06/05/21 for NICM/Mob II/NSVT. [place] (EP-following) [place] (Card) - Lat[place] Fusion of spine of thoracolumbar region 05/06/20 AV block, 2nd degree 04/15/2021 Assessment & Plan (11/15/2024 3:12 PM CDT): Chronic, stable. S/p dual chamber ICD. Excellent device function. --Continue remote monitoring Assessment & Plan (04/15/2021 4:30 PM CDT): [...] arrange for dual chamber ICD implantation w/anesthesia ([employer]). --Hold beta nayana. --Flecainide stopped indefinitely. --Hold apixaban for 2 days prior to procedure. Apical variant hypertrophic cardiomyopathy 04/15 Assessment & Plan (11/15/2024 3:13 PM CDT): Chronic, stable. S/p dual ICD. No ventricular arrhythmias or syncope. --Continue remote monitoring --Continue metoprolol Assessment & Plan (07/09/2021 3:33 PM BLENDER LABORER): Apical hypertrophic cardiomyopathy without evidence of congestive [...] pacemaker. Post-operative pain 09/04/2020 Paroxysmal atrial fibrillation 07/16/2020 Assessment & Plan (11/15/2024 3:13 PM CDT): Chronic, stable. Minimal arrhythmia burden. --Continue metoprolol 25 mg BID --Continue apixaban 5 mg BID Assessment & Plan (12/06/2023 3:38 PM CDT): [...] evaluation Assessment & Plan (07/09/2021 3:33 PM BLENDER LABORER): Chronically anticoagulated with Eliquis. Assessment & Plan [...] interval. Assessment & Plan (07/16/2020 1:56 PM BLENDER LABORER): Recent diagnosis of paroxysmal atrial fibrillation as [...] (07/11/2020): Added automatically from request for surgery [id number] History of spinal fusion for scoliosis 0 [...] 06/30/2017 Assessment & Plan (07/09/2021 3:33 PM BLENDER LABORER): No recent symptoms. She had previously been [...] continue. Assessment & Plan (07/16/2020 1:56 PM BLENDER LABORER): Well controlled with diltiazem which she should continue. Assessment & Plan (05/24/2019 12:26 PM CDT): Minimally symptomatic on diltiazem. She is not known to have coronary artery disease. Assessment & Plan (06/30/2017 4:48 PM BLENDER LABORER): History of microvascular angina. Her exertional angina [...] made. Assessment & Plan (06/30/2017 4:48 PM BLENDER LABORER): On chronic lipid lowering therapy with good [...] 06/24/2011 Assessment & Plan (07/09/2021 3:34 PM BLENDER LABORER): Continue atorvastatin 20 mg daily. Assessment & [...] Assessment & Plan (04/11/2021 7:25 AM CDT): [place] two second-degree AV block documented while she [...] do not see any lengthening of the NH interval prior to a nonconducted sinus beat, [...] Echocardiogram on 06/28/2020 at [facility] demonstrated an EF greater than 70%; will repeat. Immunizations Immunization Administration Dates Next Due Influenza, Quadrivalent, Hig [...] materials from doctor or pharmacy Never 02/24/2024 [facility] Utilities Answer Date Recorded In the past 12 months has th e [employer], gas, oil, or water Exit41 threatened to shut off services in your [...] on file Legal Sex Female 9:09 PM BLENDER LABORER Gender Identity Not on file Sexual Orientation Lesbian 05/24/2019 9: 06 AM CDT Last Filed Vital Signs Vital Sign Reading Time Taken Comments Blood Pressure 112/66 11/15/2024 2:48 PM CDT Pulse 65 11/15/2024 2:48 PM CDT Temperature 36.1 C (97 F) 02/24/2024 10:25 AM CDT Respiratory Rate 18 02/24/2024 10:25 AM CDT Oxygen Saturation 96% 02/24/2024 10:25 AM CDT Inhaled Oxygen Concentration - - Weight 64 kg (141 lb) 11/15/2024 2:48 PM CDT Height 162.6 cm (5' 4 ) 11/15/2024 2:48 PM CDT Body Mass Index 24.2 11/15/2024 2:48 PM CDT Plan of Treatment Not on file Medical Devices Implanted Type Area Monogram Maker Device Identifier Shelf Expiration Date Model / Serial / Lot [place] [employer] D152 Dynagen Enduralife Easyview Hf Perspectiv 5.37x7.68cm 2 Chamber - [id number] - [id number] Implanted:Qty: 1 on 06/05/2021 by Ashvin Recio III, MD at [facility] ICD [place] [employer] [id number] 06/16/2021 D152 / [id number] / [place] [employer] 7841 Lead 7841 Endocardial Pacing Mr Is-1 Bipolar Connection - [id number] - [id number] Implanted:Qty: 1 on 06/05/2021 by Ashvin Recio III, MD at [facility] Lead [place] [employer] [id number] 04/12/2023 7841 / [id number] / [place] [employer] 0672 Arnold 4-Front 59cm Active Fixation Lead Icd - [id number] - [id number] Implanted:Qty: 1 on 06/05/2021 by Ashvin Recio III, MD at [facility] Lead [place] [employer] [id number] 03/24/2023 0672 / [id number] / Cochlear [employer] [id number] Implant Cochlear Cochlear Nucleus Profile Plus Slim Modiolar Electrode Ci632 - [id number] - [id number] Implanted:Qty: 1 on 06/19/2020 by Darshana Toth MD at [facility] Other - see comments [employer]chle[employer] 03/12/2022 [id number] / [id number] / Description:Nucleus Cochlear Implant [email or web address]/[email or web address]-[email or web address] es Check list https://www.[employer] Grid/[email or web address] _USA_WEB.pdf?MOD=AJPERES&CONVERT_TO=url&CACHEID=[id number] MRI paremeters https://www.[employer] Grid/[email or web address] RI- _USA_WEB.pdf?MOD=AJPERES&CONVERT_TO=url&CACHEID=[id number] Screws Spine Lumbar Bilateral Total Hip Arthroplasty Bilateral: Hip Depuy Spine [id number] Expedium 1 Inner Monoaxial Spine Screw Set Titanium - [id number] Implanted:Qty: 8 on 07/25/2020 by Jeremy Michelle MD at [facility] N/A: Spine Thoracic Depuy Spine [id number] / / Allosource [id number] Crushed Chip Frozen Graft 30ml Bone Cancellous - [id number] Implanted:Qty: 1 on 07/25/2020 by Jeremy Michelle MD at [facility] [employer]osource 01/31/2025 [id number] / / [id number] Medtronic Sofamor Danek [id number] Infuse 18mm 26mm Absorbable Sponge Sterile Water Syringe Needle - [id number] Implanted:Qty: 1 on 07/25/2020 by Jeremy Michelle MD at [facility] Medtronic Inc 02/24/2021 [id number] / / [id number] Allosource [id number] Crushed Chip Frozen Graft 30ml Bone Cancellous - [id number] Implanted:Qty: 1 on 07/25/2020 by Jeremy Michelle MD at [facility] N/A: Spine Thoracic Allosource 01/29/2025 [id number] / / [id number] Depuy Spine [id number] Expedium 6.5mm 60mm Polyaxial Spine Screw Bone Titanium 5.5mm El - [id number] Implanted:Qty: 2 on 07/25/2020 by Jeremy Michelle MD at [facility] N/A: Spine Thoracic Depuy Spine [id number] / / Depuy Spine [id number] Expedium 7mm 55mm 1 Innie Polyaxial Spine Screw Bone Titanium - [id number] Implanted:Qty: 3 on 07/25/2020 by Jeremy Michelle MD at [facility] N/A: Spine Thoracic Depuy Spine [id number] / / Depuy Spine [id number] Expedium 7mm 50mm 1 Innie Polyaxial Spine Screw Bone Titanium - [id number] Implanted:Qty: 3 on 07/25/2020 by Jeremy Michelle MD at [facility] N/A: Spine Thoracic Depuy Spine [id number] / / Depuy Spine [id number] Expedium 5.5mm 85mm Line Prebent El Spinal Titanium Nonsterile - [id number] Implanted:Qty: 2 on 07/25/2020 by Jeremy Michelle MD at [facility] N/A: Spine Thoracic Depuy Spine [id number] / / Allosource Crushed Chip Frozen Graft 90ml Bone Cancellous [id number] - [id number] Implanted:Qty: 1 on 12/02/2023 by Jeremy Michelle MD at [facility] N/A: Spine Lumbar Allosource 01/15/2028 [id number] / / [id number] Responsys Spine Substitute Bone Graft Fibergraft Large Bioactive Glass Putty [id number] - [id number] Implanted:Qty: 1 on 12/02/2023 by Jeremy Michelle MD at [facility] N/A: Spine Lumbar Depuy Synthes Spine [id number] 04/22/2026 [id number] / / [id number] Medtronic Inc Kit Graft Bone Sponge Xlg Infuse 8cc Granules [id number] - [id number] Implanted:Qty: 1 on 12/02/2023 by Jeremy Michelle MD at [facility] N/A: Spine Thoracic Medtronic Inc [id number] 01/24/2025 [id number] / / [id number] Medtronic Inc Kit Graft Bone Sponge Xlg Infuse 8cc Granules [id number] - [id number] Implanted:Qty: 1 on 12/02/2023 by Jeremy Michelle MD at [facility] N/A: Spine Thoracic Medtronic Inc [id number] 01/24/2025 [id number] / / [id number] Medtronic Inc Kit Graft Bone Sponge Xlg Infuse 8cc Granules [id number] - [id number] Implanted:Qty: 1 on 12/02/2023 by Jeremy Michelle MD at [facility] N/A: Spine Thoracic Medtronic Inc [id number] 01/24/2025 [id number] / / [id number] Allosource Crushed Chip Frozen Graft 60ml Bone Cancellous [id number] - [id number] Implanted:Qty: 1 on 12/02/2023 by Jeremy Michelle MD at [facility] N/A: Spine Thoracic Allosource 06/18/2028 [id number] / / [id number] Depuy Synthes Spine Expedium 5mm 45mm Fix Spine Cortical Screw Bone Titanium 5.5mm [id number] - [id number] Implanted:Qty: 2 on 12/02/2023 by Jeremy Michelle MD at [facility] N/A: Spine Thoracic Depuy Synthes Spine [id number] / / Depuy Synthes Spine Expedium 5.5mm 45mm Polyaxial Spine Screw Bone Titanium 5.5mm El [id number] - [id number] Implanted:Qty: 1 on 12/02/2023 by Jeremy Michelle MD at [facility] N/A: Spine Thoracic Depuy Synthes Spine [id number] / / Depuy Synthes Spine Expedium 5.5mm 50mm Polyaxial Spine Screw Bone Titanium 5.5mm El [id number] - [id number] Implanted:Qty: 3 on 12/02/2023 by Jeremy Michelle MD at [facility] N/A: Spine Thoracic Depuy Synthes Spine [id number] / / Depuy Synthes Spine Expedium 1 Inner Monoaxial Spine Screw Set Titanium [id number] - [id number] Implanted:Qty: 14 on 12/02/2023 by Jeremy Michelle MD at [facility] N/A: Spine Thoracic Depuy Synthes Spine [id number] / / Depuy Synthes Spine Expedium 5.5mm 480mm El Spinal Titanium Nonsterile [id number] - [id number] Implanted:Qty: 2 on 12/02/2023 by Jeremy Michelle MD at [facility] N/A: Spine Thoracic Depuy Synthes Spine [id number] / / Depuy Synthes Spine Substitute Bone Graft Fibergraft Large Bioactive Glass Putty [id number] - [id number] Implanted:Qty: 2 on 12/02/2023 by Jeremy Michelle MD at [facility] N/A: Spine Thoracic Depuy Synthes Spine [id number] / / Depuy Synthes Spine Screw Viper 8x65mm [id number] - [id number] Implanted:Qty: 2 on 12/02/2023 by Jeremy Michelle MD at [facility] N/A: Spine Thoracic Depuy Synthes Spine [id number] / / Procedures Procedure Name Priority Date/Time Associated Diagnosis Comments ECG 12-LEAD Routine 11/15/2024 2:51 PM CDT Cardiac arrhythmia, unspecified cardiac arrhythmia type DEVICE CHECK - IN OFFICE Routine 11/15/2024 2:22 PM CDT ICD (implantable cardioverter-defibri llator), dual, in situ from Last 3 Months Results * ECG 12 lead (11/15/2024 2:51 PM CDT) Ashvin Recio III, MD ECG ORDERABLES Fin al Result * DEVICE CHECK - IN OFFICE (11/15/2024 2:22 PM CDT) Anatomical Region Laterality Modality Other Narrative 11/16/2024 12:57 PM CDT Table formatting from the original result was not included. ICD CHECK (IN OFFICE) Patient ID: Macie Briseno is a 79 y.o. female. This patient received a [place] scientific ICD. They had a routine in office device interrogation on 11/16/24 Device implant indications: Nonischemic cardiomyopathy, Mobitz type 2, SVT Interrogation of the patient's device demonstrates the following: Presenting EGM: A sense V sense @ 67 bpm Underlying Rhythm: As above Original Device Settings Right Atrium Right Ventricle Sensitivity (mV) 0.25 mV 0.6 mV Pacing Outputs 2.5 V @ 0.4 ms 2.5 V @ 0.4 ms Testing Measurements Right Atrium Right Ventricle Sensitivity (mV) 4.9 mV 25 mV Impedence (Ohms) 755 ohms 427 ohms High Voltage Impedence 76 ohms Pace Threshold 0.8 V @ 0.4 ms 0.7 V @ 0.4 ms Pacing % 24 % 2 % Battery Status: 10.5 years to YURIDIA with Charge Time 9.9 seconds Episodes last 90 days/Comments: AF [place] <1%, longest duration 8 seconds. No new ventricular events NORMAL DEVICE FUNCTION PROGRAMMED MEDICATIONS: Anti-coagulant(s): Eliquis 5 mg twice a day Anti-arrhythmic(s): Amiodarone 200 mg daily, Lopressor 25 mg twice a day PLAN: 1) [place] [employer] ICD evaluation. 2) [place] [employer] remote transmission scheduled in 3 months. 3) Programming appropriate for device measurements Yanni David, MEDINA Clara Thakkar NP CV CARDIAC SERVICES PROCED URES Final Result from Last 3 [place] [address] [employer] MEDICARE [facility] MEDICARE [facility] MEDICARE Advance Directives For more information, please contact: [phone] * Full Code (Latest Code Status on [...] Communication Sunita Miranda Spouse Health Care Agent [email or web address] Plascencia Pandya Friend First Alternate Health Care Agent Care Teams Track Worker Relationship Specialty Start Date End Date Enmanuel Gan MD [address] INTERNAL MEDICINE [place], [place] [id number] PCP - General Internal Medicine 04/26/20 Tg Houston MD [address] [place] [address] Consulting Physician Cardiology 07/18/20 Guerrero Hunter DPT [address] [facility] [address] [place] [address] Physical Therapist Physical Therapy 11/08/20 Guerrero Weiner, [facility] [address] [facility] [address] [place] [address] Filter Screen Cleaner Physical Therapy 12/12/20 Stephen Barth MD [address] [place] [address] Referring Physician Transplant 10/19/23
--- OUTSIDE RECORDS SUMMARY | 2024-11-21 18:35 | XMS_ITS | Clinical Summary ---
Author Organization [facility] HealthCare Care Team Providers Care Cinder Worker Name Role Phone Enmanuel Gan MD Primary Care Provider [phone] Tg Houston MD Unavailable Guerrero Hunter DPT Unavailable [phone] Guerrero Weiner RIVET TESTER Unavailable [phone] Stephen Barth MD Unavailable Allergies [...] once a day. Follow up with your strategies analyst within one week of discharge. 30 tablet [...] spray 1 spray(s), Nasal, daily, 1 each, [place], 0 4 Active sucralfate (Carafate) 1 gram [...] arnold valadez, in situ 06/06/2021 Overview (06/06/2021): Jeanerette Sci DDD Dynagen ICD imp on 06/05/21 [...] arrange for dual chamber ICD implantation w/anesthesia ([employer]). --Hold beta nayana. --Flecainide stopped indefinitely. --Hold apixaban for 2 days prior to procedure. Apical variant hypertrophic cardiomyopathy 04/15 Assessment & Plan (11/15/2024 3:13 PM CDT): Chronic, stable. S/p dual ICD. No ventricular arrhythmias or syncope. --Continue remote monitoring --Continue metoprolol Assessment & Plan (07/09/2021 3:33 PM DATABASE MANAGEMENT SPECIALIST): Apical hypertrophic cardiomyopathy without evidence of [...] evaluation Assessment & Plan (07/09/2021 3:33 PM DATABASE MANAGEMENT SPECIALIST): Chronically anticoagulated with Eliquis. Assessment & [...] interval. Assessment & Plan (07/16/2020 1:56 PM DATABASE MANAGEMENT SPECIALIST): Recent diagnosis of paroxysmal atrial fibrillation [...] (07/11/2020): Added automatically from request for surgery [id number] History of spinal fusion for scoliosis 0 [...] 06/30/2017 Assessment & Plan (07/09/2021 3:33 PM DATABASE MANAGEMENT SPECIALIST): No recent symptoms. She had previously [...] continue. Assessment & Plan (07/16/2020 1:56 PM DATABASE MANAGEMENT SPECIALIST): Well controlled with diltiazem which she should continue. Assessment & Plan (05/24/2019 12:26 PM CDT): Minimally symptomatic on diltiazem. She is not known to have coronary artery disease. Assessment & Plan (06/30/2017 4:48 PM DATABASE MANAGEMENT SPECIALIST): History of microvascular angina. Her exertional [...] made. Assessment & Plan (06/30/2017 4:48 PM DATABASE MANAGEMENT SPECIALIST): On chronic lipid lowering therapy with [...] 06/24/2011 Assessment & Plan (07/09/2021 3:34 PM DATABASE MANAGEMENT SPECIALIST): Continue atorvastatin 20 mg daily. Assessment [...] is under consideration. Echocardiogram on 06/28/2020 at [facility] demonstrated an EF greater than 70%; will repeat. Encounters Date Type Department Care Team Description 11/15/2024 3:00 PM CDT Office [facility] [address] [place] [phone] Ashvin Recio III, MD AV block, 2nd degree (Primary Dx); Paroxysmal atrial fibrillation (HCC); Apical variant hypertrophic cardiomyopathy (HCC); Cardiac arrhythmia, unspecified cardiac arrhythmia type; ICD (implantable cardioverter-defibrill ator), dual, in situ 11/15/2024 2:45 PM CDT Ancillary Procedure [facility] [address] [place] [phone] Apical variant hypertrophic cardiomyopathy (HCC) (Primary Dx); ICD (implantable cardioverter-defibrill ator), dual, in situ from Last 3 Months Immunizations Immunization Administration Dates Next Due Influenza, [...] L - 2013, R - 2014 - [facility] BACK SURGERY 07/27/2016 - 2017 REVISION November [...] Meniere's disea se Meniere's disease Microvascular angina HLD (hyperlipidemia) Atrial fibrillation (HCC) Allergic rhinitis HL (hearing loss) Tinnitus Coronary artery disease Anxiety unknown maybe 1989 Arthritis 2018 Osteoporosis 2013 Depression 1989 Heart disease Afib 2019 Mixed conductive and [...] materials from doctor or pharmacy Never 02/24/2024 [facility] Utilities Answer Date Recorded In the past 12 months has e [employer] gas, oil, or water Arav threatened to shut off services in your [...] often do you attend chur ch or buddhist services? Never 02/22/2024 Do you belong to [...] when you are drinking? 1 or 2 05/08/202 4 Q3: How often do you have si [...] any time in the past 12 [facility], were you homeless or living in a retirement (including now)? No 01/07/2024 Personal Safety Answer Date Recorded Have you ever been in or are you currently in a harmful physical or emotional relationship or is someone making you feel afraid or unsafe? Denies 01/06/2024 Comments No Sex and Gender Information Value Date Recorded Sex Assigned at Not on file Legal Sex Female 9:09 PM DATABASE MANAGEMENT SPECIALIST Gender Identity Not on file Sexual [...] 11/15/2024 2:48 PM CDT Plan of Treatment Health Maintenance Due Date Last Done Comments Hepatitis C Screening 1945 DTaP/Tdap/Td Vaccine (1 - Tdap) 1957 Hepatitis B Screening 1964 Well Visit 65+ 2011 Osteoporosis Screening-Bone Density Scan 08/23/2017 08/23/2015 Covid-19 Vaccine (4 2023-2 5 season) 2024 06/10/2021, 10/15/2020, 09/13/2020 Depression Screening 01/04/2025 01/05/2024 Fall Risk Assessment 01/07/2025 01/08/2024, 11/29/19 23 Influenza Vaccine (Season Ended) 2025 04/07/2023, 03/31/2021, 04/10/2020, Additional history exists Breast Cancer Screening-Mammogram Discontinued 013 Pneumococcal vaccine 65+ Completed 018, 10/12/2015, 04/26/2010 Zoster Vaccine Completed 07/29/2018, 04/27, 04/26/2010 Medical Devices Implanted Type Area Small Brake Form Operator Device Identifier Shelf Expiration Date Model / Serial / Lot Easy-Point D152 Dynagen Enduralife Easyview Hf Perspectiv 5.37x7.68cm 2 Chamber - [id number] - [id number] Implanted:Qty: 1 on 06/05/2021 by Ashvin Recio III, MD at [facility] ICD [employer] Mayelin [id number] 06/16/2021 D152 / [id number] / [employer] Mayelin 7841 Lead 7841 Endocardial Pacing Mr Is-1 Bipolar Connection - [id number] - [id number] Implanted:Qty: 1 on 06/05/2021 by Ashvin Recio III, MD at [facility] Lead [employer] Mayelin [id number] 04/12/2023 7841 / [id number] / Jeane[employer] Mayelin 0672 Transfer 4-Front 59cm Active Fixation Lead Icd - [id number] - [id number] Implanted:Qty: 1 on 06/05/2021 by Ashvin Recio III, MD at [facility] Lead [employer] Mayelin [id number] 03/24/2023 0672 / [id number] / Cochlear Americas [id number] Implant Cochlear Cochlear Nucleus Profile Plus Slim Modiolar Electrode Ci632 - [id number] - [id number] Implanted:Qty: 1 on 06/19/2020 by Darshana Toth MD at [facility] Other - see comments Cochle[employer] 03/12/2022 [id number] / [id number] / Description:Nucleus Cochlear Implant [email or web address]://[email or web address]/[email or web address]-pdj-qwyqljbf/mri-guidelin es Check list https://www.[email or web address]_IE_H [facility]_[place]_WEB.pdf?MOD=AJPERES&CONVERT_TO=url&CACHEID=[email or web address] MRI paremeters https://www.[email or web address].[email or web address]_WQ_V [facility] _[place]_WEB.pdf?MOD=AJPERES&CONVERT_TO=url&CACHEID=[email or web address] Screws Spine Lumbar Bilateral Total Hip Arthroplasty Bilateral: Hip Depuy Spine [id number] Expedium 1 Inner Monoaxial Spine Screw Set Titanium - [id number] Implanted:Qty: 8 on 07/25/2020 by Jereym Michelle MD at [facility] N/A: Spine Thoracic Depuy Spine [id number] / / Allosource [id number] Crushed Chip Frozen Graft 30ml Bone Cancellous - [id number] Implanted:Qty: 1 on 07/25/2020 by Jeremy Michelle MD at [facility] [employer]ource 01/31/2025 [id number] / / [id number] Medtronic Sofamor Danek [id number] Infuse 18mm 26mm Absorbable Sponge Sterile Water Syringe Needle - [id number] Implanted:Qty: 1 on 07/25/2020 by Jeremy Michelle MD at [facility] Medtronic Inc 02/24/2021 [id number] / / [id number] Allosource [id number] Crushed Chip Frozen Graft 30ml Bone Cancellous - [id number] Implanted:Qty: 1 on 07/25/2020 by Jeremy Michelle MD at [facility] N/A: Spine Thoracic [employer]osource 01/29/2025 [id number] / / [id number] Depuy Spine [id number] Expedium 6.5mm 60mm Polyaxial Spine Screw Bone Titanium 5.5mm El - [id number] Implanted:Qty: 2 on 07/25/2020 by Jeremy Michelle MD at [facility] N/A: Spine Thoracic Depuy Spine [id number] / / Depuy Spine [id number] Expedium 7mm 55mm 1 Innie Polyaxial Spine Screw Bone Titanium - [id number] Implanted:Qty: 3 on 07/25/2020 by Jeremy Michelle MD at [facility] N/A: Spine Thoracic Depuy Spine [id number] / / Depuy Spine [id number] Expedium 7mm 50mm 1 Innie Polyaxial Spine Screw Bone Titanium - [id number] Implanted:Qty: 3 on 07/25/2020 by Jeremy Michelle MD at [facility] N/A: Spine Thoracic Depuy Spine [id number] / / Depuy Spine [id number] Expedium 5.5mm 85mm Line Prebent El Spinal Titanium Nonsterile - [id number] Implanted:Qty: 2 on 07/25/2020 by Jeremy Michelle MD at [facility] N/A: Spine Thoracic Depuy Spine [id number] / / Allosource Crushed Chip Frozen Graft 90ml Bone Cancellous [id number] - [id number] Implanted:Qty: 1 on 12/02/2023 by Jeremy Michelle MD at [facility] N/A: Spine Lumbar Allosource 01/15/2028 [id number] / / [id number] Depuy Synthes Spine Substitute Bone Graft Fibergraft Large Bioactive Glass Putty [id number] - [id number] Implanted:Qty: 1 on 12/02/2023 by Jeremy Michelle MD at [facility] N/A: Spine Lumbar Depuy Synthes Spine [id number] 04/22/2026 [id number] / / [id number] Medtronic Inc Kit Graft Bone Sponge Xlg Infuse 8cc Granules [id number] - [id number] Implanted:Qty: 1 on 12/02/2023 by Jeremy Michelle MD at [facility] N/A: Spine Thoracic Medtronic Inc [id number] 01/24/2025 [id number] / / [id number] Medtronic Inc Kit Graft Bone Sponge Xlg Infuse 8cc Granules [id number] - [id number] Implanted:Qty: 1 on 12/02/2023 by Jeremy Michelle MD at [facility] N/A: Spine Thoracic Medtronic Inc [id number] 01/24/2025 [id number] / / [id number] Medtronic Inc Kit Graft Bone Sponge Xlg Infuse 8cc Granules [id number] - [id number] Implanted:Qty: 1 on 12/02/2023 by Jeremy Michelle MD at [facility] N/A: Spine Thoracic Medtronic Inc [id number] 01/24/2025 [id number] / / [id number] Allosource Crushed Chip Frozen Graft 60ml Bone Cancellous [id number] - [id number] Implanted:Qty: 1 on 12/02/2023 by Jeremy Michelle MD at [facility] N/A: Spine Thoracic Allosource 06/18/2028 [id number] / / [id number] Depuy Synthes Spine Expedium 5mm 45mm Fix Spine Cortical Screw Bone Titanium 5.5mm [id number] - [id number] Implanted:Qty: 2 on 12/02/2023 by Jeremy Michelle MD at [facility] N/A: Spine Thoracic Depuy Synthes Spine [id number] / / Depuy Synthes Spine Expedium 5.5mm 45mm Polyaxial Spine Screw Bone Titanium 5.5mm El [id number] - [id number] Implanted:Qty: 1 on 12/02/2023 by Jeremy Michelle MD at [facility] N/A: Spine Thoracic Depuy Synthes Spine [id number] / / Depuy Synthes Spine Expedium 5.5mm 50mm Polyaxial Spine Screw Bone Titanium 5.5mm El [id number] - [id number] Implanted:Qty: 3 on 12/02/2023 by Jeremy Michelle MD at [facility] N/A: Spine Thoracic Depuy Synthes Spine [id number] / / Depuy Synthes Spine Expedium 1 Inner Monoaxial Spine Screw Set Titanium [id number] - [id number] Implanted:Qty: 14 on 12/02/2023 by Jeremy Michelle MD at [facility] N/A: Spine Thoracic Depuy Synthes Spine [id number] / / Depuy Synthes Spine Expedium 5.5mm 480mm El Spinal Titanium Nonsterile [id number] - [id number] Implanted:Qty: 2 on 12/02/2023 by Jeremy Michelle MD at [facility] N/A: Spine Thoracic Depuy Synthes Spine [id number] / / Depuy Synthes Spine Substitute Bone Graft Fibergraft Large Bioactive Glass Putty [id number] - [id number] Implanted:Qty: 2 on 12/02/2023 by Jeremy Michelle MD at [facility] N/A: Spine Thoracic Depuy Synthes Spine [id number] / / Depuy Synthes Spine Screw Viper 8x65mm [id number] - [id number] Implanted:Qty: 2 on 12/02/2023 by Jeremy Michelle MD at [facility] N/A: Spine Thoracic Depuy Synthes Spine [id number] / / Procedures Procedure Name Priority Date/Time [...] 79 y.o. female. This patient received a Jeanerette scientific ICD. They had a routine in [...] 9.9 seconds Episodes last 90 days/Comments: AF Johnson <1%, longest duration 8 seconds. No new ventricular events NORMAL DEVICE FUNCTION PROGRAMMED MEDICATIONS: Anti-coagulant(s): Eliquis 5 mg twice a day Anti-arrhythmic(s): Amiodarone 200 mg daily, Lopressor 25 mg twice a day PLAN: 1) Jeanerette scientific ICD evaluation. 2) Jeanerette scientific remote transmission scheduled in 3 months. 3) Programming appropriate for device measurements Yanni David RN Clara Thakkar NP CV CARDIAC SERVICES PROCED URES Final Result from Last 3 Months Insurance AETNA MEDICARE AETNA MEDICARE AETNA MEDICARE Advance Directives For more information, please contact: [phone] * Full Code (Latest Code Status on [...] Communication Sunita Miranda Spouse Health Care Agent [email or web address] Pandya Friend First Alternate Health Care Agent Care Teams Cinder Worker Relationship Specialty Start Date End Date Enmanuel Gan MD [address] [facility] [address] [place] [address] PCP - General Internal Medicine 04/26/20 Tg Houston MD [address] [facility] [address] [place] [address] Consulting Physician Cardiology 07/18/20 Guerrero Hunter DPT [address] [facility] [address] [place] [address] Physical Therapist Physical Therapy 11/08/20 Guerrero Weiner, RIVET TESTER [address] [facility] [address] [place] [address] Blemish Remover Physical Therapy 12/12/20 Stephen Barth MD [address] [facility] [address] [place] [address] Referring Physician Transplant 10/19/23
--- OUTSIDE RECORDS SUMMARY | 2024-11-21 18:35 | XMS_ITS | Clinical Summary ---
Author Organization [facility] Address [address] [place] [address] [place] [address] Care Team Providers Care Mechanical Estimator Name Role Phone Unavailable Primary Care Provider Unavailabl e Source Comments [facility],non-owned Affiliates and Associated Physician Practices is amultiple site organization consisting of ambulatory clinics and hospital sitesin [place], [place], [place] and [place]. This disclosure is being madepursuant to the Care Everywhere program and may not contain all information available regarding this patient. Last updated 18.[facility] Social History Tobacco Use Types Packs/Day Years Used Date Smoking Tobacco: Never Assessed Comments Unknown Sex and Gender Information Value Date Recorded Sex Assigned at Not on file Legal Sex Female 6:16 AM ASSOCIATE PROFESSOR OF LIBRARY MEDIA Gender Identity Not on file Sexual Orientation Not on file Plan of Treatment Health Maintenance Due Date Last Done Comments BONE DENSITY TESTING 1945 HEPATITIS C SCREENING 07/21/1964 DTAP/TDAP/TD VACCINES (1 - Tdap) 1965 PNEUMOCOCCAL VACCINE 50+ (1 of 1 - PCV) 1996 ZOSTER VACCINE (1 of 2) 1996 Respiratory Syncytial Virus (RSV) Vaccine Pt: or over 60 yrs (1 - 1-dose 75+ series) 2021 COVID-19 VACCINE ( - 2023-2 5 season) 2024 DEPRESSION SCREENING 07/27/2024 INFLUENZA VACCINE (Season Ended) 2025 HEPATITIS B VACCINE Aged Out No longe r eligible based on patient's age to complete this topic HIB VACCINE Aged Out No longer eligi ble based on patient's age to complete this topic HPV VACCINE Aged Out No longer eligi ble based on patient's age to complete this topic MENINGOCOCCAL (Group B) VACC INE SHARED DECISION-MAKING Aged Out No longer eligibl e based on patient's age to complete this topic MENINGOCOCCAL GROUPS A/C/Y/W VACCINE Aged Out No longer eligible b ased on patient's age to complete this topic
--- OUTSIDE RECORDS SUMMARY | 2024-11-21 18:35 | XMS_ITS | Encounter Summary ---
Author Organization [facility] Healthcare Address [address] [place] [address] Care Team Providers Care Ship Cleaner Name Role Phone Enmanuel Gan MD Primary Care Provider [phone] Tg Houston MD Unavailable [phone] Guerrero Hunter DPT Unavailable [phone] Guerrero Weiner CHILD CARE ATTENDANT Unavailable [phone] Stephen Barth MD Unavailable [phone] Karlie Hernandez RN Unavailable [phone] Encounter Details Date Type Department Care Team (Late st Contact Info) Description 04/09/2021 Telephone [facility] - Imaging [address] [place] [address] Transcribed Order, Provider Social History [...] How often do you attend chur or baptist services? Never 07/30/2020 Do you [...] on file Legal Sex Female 9:09 PM ROUGE MIXER Gender Identity Not on file Sexual [...] documented as of this encounter Care Teams Ship Cleaner Relationship Specialty Start Date End Date Enmanuel Gan MD [address] [place] [address] PCP - General Internal Medicine 04/26/20 Tg Houston MD [address] [place] [address] Consulting Physician Cardiology 07/18/20 Guerrero Hunter DPT [address] [facility] [address] [place] [address] Physical Therapist Physical Therapy 11/08/20 Guerrero Weiner, [facility] [address] [facility] [address] [place] [address] Head Of Cytogenetics Physical Therapy 12/12/20 Stephen Barth MD [address] [place] [address] Referring Physician Transplant 10/19/23 Karlie Hernandez, MEDINA [address] [facility] [address] [place], [place] [id number] [facility] Outpatient Filter Worker 12/15/23 01/12/24 documented as of this encounter
[2024-11-21 18:47] LABS: Free T4 Free Thyroxine 0.97 ng/dL (0.78-2.19)
[2024-11-21 19:01] LABS: Alanine Aminotransferase 25 U/L (6-35); Albumin Level 4.2 g/dL (3.5-5.1); Alkaline Phosphatase 87 U/L (38-126); Anion Gap 9 mmol/L (4-12); Aspartate Amino Transferase 35 U/L (14-36); Bilirubin,Total 0.6 mg/dL (0.2-1.3); Blood Urea Nitrogen 15 mg/dL (7-17); Calcium 9.3 mg/dL (8.4-10.2); Carbon Dioxide 28 mmol/L (22-30); Chloride 101 mmol/L (98-107); Cholesterol 129 mg/dL (0-200); Estimated Glomerular Filt Rate > 60; Glucose 92 mg/dL (65-110); Potassium 3.9 mmol/L (3.4-5.0); Sodium 138 mmol/L (137-145); Triglycerides 102 mg/dL (<150)
[2024-11-21 19:11] LABS: LDL Cholesterol Direct 41 mg/dL
[2024-11-21 19:41] LABS: Hemoglobin A1C 5.3 % (<5.7)
[2024-11-21 20:23] LABS: HDL Direct 55 mg/dL
== END 2024-11-21 17:38 | disposition home or self-care (01) ==
PROVIDERS: PCP Internal Medicine; Visit Provider Internal Medicine
DX: R93.89 Abnormal findings on diagnostic imaging of other specified body structures (principal); E04.1 Nontoxic single thyroid nodule; R94.6 Abnormal results of thyroid function studies; I10 Essential (primary) hypertension; R73.03 Prediabetes; E78.2 Mixed hyperlipidemia
CPT/HCPCS: 36415; 80053; 80061; 83036; 84439; 84443; 85025

== ENCOUNTER 2025-01-27 11:26 | Emergency (ER) | payer MEDICARE, SELFPAY ==
[2025-01-27] VITALS (13 sets, daily range): BP systolic 95–123; BP diastolic 50–87; PULSE 60–67; RESP 10–65; TEMP 36.2–36.4; O2SAT 95–100
--- NOTE | ~2025-01-27 | XR_ITS ---
HISTORY: deformity COMPARISON: 04/03/2022 TECHNIQUE: 2 views of the right hip along with an AP view of the pelvis FINDINGS: Bilateral total hip arthroplasty identified. Lateral and proximal dislocation of the femoral component of the right hip arthroplasty with respect to the acetabular component. The left total hip arthroplasty is in near anatomic alignment. No acute fracture. Anterior and posterior fusion detected within the visualized portion of the lower lumbar spine. Osteitis pubis is redemonstrated. IMPRESSION: Dislocated right total hip arthroplasty, as detailed above. Reviewed, dictated and finalized at location A.
--- NOTE | ~2025-01-27 | XR_ITS ---
HISTORY: Postreduction COMPARISON: Previous examination performed approximately 1 hour earlier TECHNIQUE: 2 views of the right hip. FINDINGS: Excellent alignment post reduction. No periprosthetic fracture is appreciated. IMPRESSION: Near anatomic alignment post reduction, as detailed above. Reviewed, dictated and finalized at location A.
--- OUTSIDE RECORDS SUMMARY | 2025-01-27 11:54 | XMS_ITS | Encounter Summary ---
Author Organization [facility] Address [address] [place] [address] Care Team Providers Care Bus Person Name Role Phone Rg Read MD Primary Care Provider [phone] Encounter Details Date Type Department Care Team (Late st Contact Info) Description 02/29/2004 Outpatient Historical [facility] Internal Medicine - [address] [address] Rg Read MD [address] [place] [address] Social History Tobacco Use Types Packs/Day Years Used Date Smoking Tobacco: Never Assessed Comments Unknown Sex and Gender Information Value Date Recorded Sex Assigned at Not on file Legal Sex Female 5:17 AM INSTRUMENT LENS GENERATOR Gender Identity Not on file Sexual Orientation Not on file documented as of this encounter Plan of Treatment Not on file documented as of this encounter Visit Diagnoses Not on filedocumented in this encounter Care Teams Bus Person Relationship Specialty Start Date End Date Rg Read MD [address] [place] [address] PCP - General 03/12/01 10/29/22 documented as of this encounter
--- OUTSIDE RECORDS SUMMARY | 2025-01-27 11:54 | XMS_ITS | Encounter Summary ---
Author Organization [facility] Address [address] [place] [address] Care Team Providers Care Detacher Name Role Phone Rg Read MD Primary Care Provider [phone] Encounter Details Date Type Department Care Team (Latest Contact Info) Description 10/09/2005 Outpatient Historical [facility] Rg Read MD [address] [address] Shortness of Breath (Primary Dx) Social History Tobacco Use Types Packs/Day Years Used Date Smoking Tobacco: Never Assessed Comments Unknown Sex and Gender Information Value Date Recorded Sex Assigned at Not on file Legal Sex Female 5:17 AM FAST FOOD SERVICES MANAGER Gender Identity Not on file Sexual Orientation Not on file documented as of this encounter Plan of Treatment Not on file documented as of this encounter Visit Diagnoses Diagnosis Shortness of breath- Primary documented in this encounter Care Teams Detacher Relationship Specialty Start Date End Date Rg Read MD [address] [address] PCP - General 03/12/01 10/29/22 documented as of this encounter
--- OUTSIDE RECORDS SUMMARY | 2025-01-27 11:54 | XMS_ITS | Encounter Summary ---
Author Organization [facility] Address [address] [place] [address] Care Team Providers Care Digital Cartographer Name Role Phone Rg Read MD Primary Care Provider [phone] Encounter Details Date Type Department Care Team (Late st Contact Info) Description 11/23/2006 Outpatient Historical [facility] Internal Medicine - [address] [address] Rg Read MD [address] [place] [address] Social History Tobacco Use Types Packs/Day Years Used Date Smoking Tobacco: Never Assessed Comments Unknown Sex and Gender Information Value Date Recorded Sex Assigned at Not on file Legal Sex Female 5:17 AM BEHAVIORAL HEALTH CONSULTANT Gender Identity Not on file Sexual Orientation Not on file documented as of this encounter Plan of Treatment Not on file documented as of this encounter Visit Diagnoses Not on filedocumented in this encounter Care Teams Digital Cartographer Relationship Specialty Start Date End Date Rg Read MD [address] [place] [address] PCP - General 03/12/01 10/29/22 documented as of this encounter
--- OUTSIDE RECORDS SUMMARY | 2025-01-27 11:54 | XMS_ITS | Encounter Summary ---
Author Organization [facility] Address [address] [place] [address] Care Team Providers Care Metal Crafts Teacher Name Role Phone Rg Read MD Primary Care Provider [phone] Encounter Details Date Type Department Care Team (Late st Contact Info) Description 10/28/2001 Outpatient Historical [facility] Internal Medicine - [address] [address] Rg Read MD [address] [place] [address] Social History Tobacco Use Types Packs/Day Years Used Date Smoking Tobacco: Never Assessed Comments Unknown Sex and Gender Information Value Date Recorded Sex Assigned at Not on file Legal Sex Female 5:17 AM NETWORK CONSULTANT Gender Identity Not on file Sexual Orientation Not on file documented as of this encounter Plan of Treatment Not on file documented as of this encounter Visit Diagnoses Not on filedocumented in this encounter Care Teams Metal Crafts Teacher Relationship Specialty Start Date End Date Rg Read MD [address] [place] [address] PCP - General 03/12/01 10/29/22 documented as of this encounter
--- OUTSIDE RECORDS SUMMARY | 2025-01-27 11:54 | XMS_ITS | Encounter Summary ---
Author Organization [facility] Address [address] [place] [address] Care Team Providers Care Hospital Attendant Name Role Phone Rg Read MD Primary Care Provider [phone] Encounter Details Date Type Department Care Team (Late st Contact Info) Description 10/09/2005 Outpatient Historical [facility] Support Services Respiratory Therapy [address] Amado [facility] [address] PFT Lab, [place] [address] Pablo Davidson MD [address] [place] [address] Social History Tobacco Use Types Packs/Day Years Used Date Smoking Tobacco: Never Assessed Comments Unknown Sex and Gender Information Value Date Recorded Sex Assigned at Not on file Legal Sex Female 5:17 AM CROP FARM HELPER Gender Identity Not on file Sexual Orientation Not on file documented as of this encounter Plan of Treatment Not on file documented as of this encounter Visit Diagnoses Not on filedocumented in this encounter Care Teams Hospital Attendant Relationship Specialty Start Date End Date Rg Read MD [address] [place] [address] PCP - General 03/12/01 10/29/22 documented as of this encounter
--- OUTSIDE RECORDS SUMMARY | 2025-01-27 11:54 | XMS_ITS | Encounter Summary ---
Author Organization [facility] Address [address] [place] [address] Care Team Providers Care Clinical Auditor Name Role Phone Rg Read MD Primary Care Provider [phone] Encounter Details Date Type Department Care Team (Late st Contact Info) Description 03/01/2001 Outpatient Historical [facility] Internal Medicine - [facility] [address] [address] Laquita Parry, Eddie Jackson MD NO ADDRESS ON FILE Social History Tobacco Use Types Packs/Day Years Used Date Smoking Tobacco: Never Assessed Comments Unknown Sex and Gender Information Value Date Recorded Sex Assigned at Not on file Legal Sex Female 5:17 AM PICK UP TRUCK DRIVER Gender Identity Not on file Sexual Orientation Not on file documented as of this encounter Plan of Treatment Not on file documented as of this encounter Visit Diagnoses Not on filedocumented in this encounter Care Teams Clinical Auditor Relationship Specialty Start Date End Date Rg Read MD [address] [place] [address] PCP - General 03/12/01 10/29/22 documented as of this encounter
--- OUTSIDE RECORDS SUMMARY | 2025-01-27 11:54 | XMS_ITS | Encounter Summary ---
Author Organization [facility] Address [address] [place] [address] Care Team Providers Care Armament Aircraft Mechanic Name Role Phone Rg Read MD Primary Care Provider [phone] Encounter Details Date Type Department Care Team (Late st Contact Info) Description 05/15/2005 Outpatient Historical [facility] Internal Medicine - [facility] [address] [address] Laquita Parry, Eddie Jackson MD NO ADDRESS ON FILE Social History Tobacco Use Types Packs/Day Years Used Date Smoking Tobacco: Never Assessed Comments Unknown Sex and Gender Information Value Date Recorded Sex Assigned at Not on file Legal Sex Female 5:17 AM SCRAP METAL BURNER Gender Identity Not on file Sexual Orientation Not on file documented as of this encounter Plan of Treatment Not on file documented as of this encounter Visit Diagnoses Not on filedocumented in this encounter Care Teams Armament Aircraft Mechanic Relationship Specialty Start Date End Date Rg Read MD [address] [place] [phone] PCP - General 03/12/01 10/29/22 documented as of this encounter
--- OUTSIDE RECORDS SUMMARY | 2025-01-27 11:54 | XMS_ITS | Encounter Summary ---
Author Organization [facility] Address [address] [place] [address] Care Team Providers Care Sales And Management Trainee Name Role Phone Rg Read MD Primary Care Provider [phone] Encounter Details Date Type Department Care Team (Late st Contact Info) Description 03/15/2007 Outpatient Historical [facility] Internal Medicine - [address] [address] Rg Read MD [address] [place] [address] Social History Tobacco Use Types Packs/Day Years Used Date Smoking Tobacco: Never Assessed Comments Unknown Sex and Gender Information Value Date Recorded Sex Assigned at Not on file Legal Sex Female 5:17 AM SALVAGE MEND WORKER Gender Identity Not on file Sexual Orientation Not on file documented as of this encounter Plan of Treatment Not on file documented as of this encounter Visit Diagnoses Not on filedocumented in this encounter Care Teams Sales And Management Trainee Relationship Specialty Start Date End Date Rg Read MD [address] [place] [phone] PCP - General 03/12/01 10/29/22 documented as of this encounter
--- OUTSIDE RECORDS SUMMARY | 2025-01-27 11:54 | XMS_ITS | Encounter Summary ---
Author Organization [facility] Address [address] [place] [address] Care Team Providers Care Speed Winder Name Role Phone Rg Read MD Primary Care Provider [phone] Encounter Details Date Type Department Care Team (Late st Contact Info) Description 11/01/1998 Outpatient Historical [facility] Internal Medicine - [facility] [address] [address] Laquita Parry, Eddie Jackson MD NO ADDRESS ON FILE Social History Tobacco Use Types Packs/Day Years Used Date Smoking Tobacco: Never Assessed Comments Unknown Sex and Gender Information Value Date Recorded Sex Assigned at Not on file Legal Sex Female 5:17 AM CONTROL VALVE MECHANIC Gender Identity Not on file Sexual Orientation Not on file documented as of this encounter Plan of Treatment Not on file documented as of this encounter Visit Diagnoses Not on filedocumented in this encounter Care Teams Speed Winder Relationship Specialty Start Date End Date Rg Read MD [address] [place] [phone] PCP - General 03/12/01 10/29/22 documented as of this encounter
--- OUTSIDE RECORDS SUMMARY | 2025-01-27 11:54 | XMS_ITS | Encounter Summary ---
Author Organization [facility] Address [address] [place] [address] Care Team Providers Care Machine Wedger Name Role Phone Rg Read MD Primary Care Provider Encounter Details Date Type Department Care Team (Late st Contact Info) Description 04/01/2005 Outpatient Historical [facility] [place] [address] [place] [address] Juan David Roman MD NO ADDRESS ON FILE Social History Tobacco Use Types Packs/Day Years Used Date Smoking Tobacco: Never Assessed Comments Unknown Sex and Gender Information Value Date Recorded Sex Assigned at Not on file Legal Sex Female 5:17 AM MEDIA DEVELOPER Gender Identity Not on file Sexual Orientation Not on file documented as of this encounter Plan of Treatment Not on file documented as of this encounter Visit Diagnoses Not on filedocumented in this encounter Care Teams Machine Wedger Relationship Specialty Start Date End Date Rg Read MD [address] [place] [address] [address] [place] [address] PCP - General 03/12/01 10/29/22 documented as of this encounter
--- OUTSIDE RECORDS SUMMARY | 2025-01-27 11:54 | XMS_ITS | Encounter Summary ---
Author Organization [facility] Address [address] [place] [address] Care Team Providers Care Optical Goods Drill Operator Name Role Phone Rg Read MD Primary Care Provider [phone] Encounter Details Date Type Department Care Team (Late st Contact Info) Description 09/10/1999 Outpatient Historical [facility] Internal Medicine - [facility] [address] [address] Laquita Parry, Eddie Jackson MD NO ADDRESS ON FILE Social History Tobacco Use Types Packs/Day Years Used Date Smoking Tobacco: Never Assessed Comments Unknown Sex and Gender Information Value Date Recorded Sex Assigned at Not on file Legal Sex Female 5:17 AM POACHER WRINGER OPERATOR Gender Identity Not on file Sexual Orientation Not on file documented as of this encounter Plan of Treatment Not on file documented as of this encounter Visit Diagnoses Not on filedocumented in this encounter Care Teams Optical Goods Drill Operator Relationship Specialty Start Date End Date Rg Read MD [address] [place] [address] PCP - General 03/12/01 10/29/22 documented as of this encounter
--- OUTSIDE RECORDS SUMMARY | 2025-01-27 11:54 | XMS_ITS | Clinical Summary ---
Author Organization [facility] Address [address] [place] [address] Care Team Providers Care Kiln Pusher Name Role Phone Unavailable Primary Care Provider [...] on file Legal Sex Female 5:17 AM TRAINING AND DOCUMENTATION SPECIALIST Gender Identity Not on file Sexual Orientation Not on file Last Filed Vital Signs Vital Sign Reading Time Taken Comments Blood Pressure 128/76 09/07/2019 3:08 PM TRAINING AND DOCUMENTATION SPECIALIST Pulse 72 09/07/2019 3:08 PM TRAINING AND DOCUMENTATION SPECIALIST Temperature 36.3 C (97.3 F) 03/30/2012 2:13 PM CDT Respiratory Rate 14 09/07/2019 3:08 PM TRAINING AND DOCUMENTATION SPECIALIST Oxygen Saturation - - Inhaled Oxygen Concentration - - Weight 77.6 kg (171 lb) 09/07/2019 3:08 PM TRAINING AND DOCUMENTATION SPECIALIST Height 170.2 cm (5' 7) 09/07/2019 3:08 PM TRAINING AND DOCUMENTATION SPECIALIST Body Mass Index 26.78 09/07/2019 3:08 PM TRAINING AND DOCUMENTATION SPECIALIST Plan of Treatment Health Maintenance Due [...]
--- OUTSIDE RECORDS SUMMARY | 2025-01-27 11:54 | XMS_ITS | Clinical Summary ---
Author Organization [facility] Address [address] [place] [address] [place] [address] Care Team Providers Care Shotgun Shell Assembly Machine Adjuster Name Role Phone Unavailable Primary Care Provider Unavailabl e Source Comments [facility],non-owned Affiliates and Associated Physician Practices is amultiple site organization consisting of ambulatory clinics and hospital sitesin [place], [place], [place] and [place]. This disclosure is being madepursuant to the Care Everywhere program and may not contain all information available regarding this patient. Last updated 18.[facility] [employer] Social History Tobacco Use Types Packs/Day Years Used Date Smoking Tobacco: Never Assessed Comments Unknown Sex and Gender Information Value Date Recorded Sex Assigned at Not on file Legal Sex Female 6:16 AM PEER COUNSELOR Gender Identity Not on file Sexual [...]
--- OUTSIDE RECORDS SUMMARY | 2025-01-27 11:54 | XMS_ITS | Encounter Summary ---
Author Organization [facility] Address [address] [place] [address] Care Team Providers Care Mis Specialist Name Role Phone Rg Read MD Primary Care Provider [phone] Encounter Details Date Type Department Care Team [...] on file Legal Sex Female 5:17 AM CERTIFIED NURSE OPERATING ROOM Gender Identity Not on file Sexual Orientation Not on file documented as of this encounter Plan of Treatment Not on file documented as of this encounter Visit Diagnoses Diagnosis Active M ni re's disease, vestibular- Primary documented in this encounter Care Teams Mis Specialist Relationship Specialty Start Date End Date Rg Read MD [address] [place] [phone] PCP - General 03/12/01 10/29/22 documented as of this encounter
--- OUTSIDE RECORDS SUMMARY | 2025-01-27 11:54 | XMS_ITS | Encounter Summary ---
Author Organization [facility] Address [address] [place] [address] Care Team Providers Care Dry Cell And Battery Assembler Name Role Phone Rg Read MD Primary Care Provider [phone] Encounter Details Date Type Department Care Team (Late st Contact Info) Description 10/28/2001 Outpatient Historical [facility] Internal Medicine - [address] [address] Rg Read MD [address] [place] [address] Social History Tobacco Use Types Packs/Day Years Used Date Smoking Tobacco: Never Assessed Comments Unknown Sex and Gender Information Value Date Recorded Sex Assigned at Not on file Legal Sex Female 5:17 AM LIFESTYLE CONSULTANT Gender Identity Not on file Sexual Orientation Not on file documented as of this encounter Plan of Treatment Not on file documented as of this encounter Visit Diagnoses Not on filedocumented in this encounter Care Teams Dry Cell And Battery Assembler Relationship Specialty Start Date End Date Rg Read MD [address] [place] [address] PCP - General 03/12/01 10/29/22 documented as of this encounter
--- OUTSIDE RECORDS SUMMARY | 2025-01-27 11:54 | XMS_ITS | Encounter Summary ---
Author Organization [facility] Address [address] [place] [address] Care Team Providers Care Wood Scaler Name Role Phone Rg Read MD Primary Care Provider [phone] Encounter Details Date Type Department Care Team (Late st Contact Info) Description 11/07/1999 Outpatient Historical [facility] Internal Medicine - [address] [address] Rg Read MD [address] [place] [address] Social History Tobacco Use Types Packs/Day Years Used Date Smoking Tobacco: Never Assessed Comments Unknown Sex and Gender Information Value Date Recorded Sex Assigned at Not on file Legal Sex Female 5:17 AM COPIER TECHNICIAN Gender Identity Not on file Sexual Orientation Not on file documented as of this encounter Plan of Treatment Not on file documented as of this encounter Visit Diagnoses Not on filedocumented in this encounter Care Teams Wood Scaler Relationship Specialty Start Date End Date Rg Read MD [address] [place] [address] PCP - General 03/12/01 10/29/22 documented as of this encounter
--- OUTSIDE RECORDS SUMMARY | 2025-01-27 11:54 | XMS_ITS | Encounter Summary ---
Author Organization [facility] Address [address] [place] [address] Care Team Providers Care Internal Combustion Engine Subassembler Name Role Phone Rg Read MD Primary Care Provider [phone] Encounter Details Date Type Department Care Team (Late st Contact Info) Description 03/17/2005 Outpatient Historical [facility] Internal Medicine - [address] [address] Rg Read MD [address] [place] [address] Social History Tobacco Use Types Packs/Day Years Used Date Smoking Tobacco: Never Assessed Comments Unknown Sex and Gender Information Value Date Recorded Sex Assigned at Not on file Legal Sex Female 5:17 AM DIRECTOR SALES Gender Identity Not on file Sexual Orientation Not on file documented as of this encounter Plan of Treatment Not on file documented as of this encounter Visit Diagnoses Not on filedocumented in this encounter Care Teams Internal Combustion Engine Subassembler Relationship Specialty Start Date End Date Rg Read MD [address] [place] [address] PCP - General 03/12/01 10/29/22 documented as of this encounter
--- OUTSIDE RECORDS SUMMARY | 2025-01-27 11:54 | XMS_ITS | Encounter Summary ---
Author Organization [facility] Address [address] [place] [address] Care Team Providers Care Supervisor Train Operations Name Role Phone Rg Read MD Primary Care Provider [phone] Encounter Details Date Type Department Care Team (Late st Contact Info) Description 05/29/2000 Outpatient Historical [facility] Internal Medicine - [address] [address] Rg Read MD [address] [place] [address] Social History Tobacco Use Types Packs/Day Years Used Date Smoking Tobacco: Never Assessed Comments Unknown Sex and Gender Information Value Date Recorded Sex Assigned at Not on file Legal Sex Female 5:17 AM RN HOUSE SUPERVISOR Gender Identity Not on file Sexual Orientation Not on file documented as of this encounter Plan of Treatment Not on file documented as of this encounter Visit Diagnoses Not on filedocumented in this encounter Care Teams Supervisor Train Operations Relationship Specialty Start Date End Date Rg Read MD [address] [place] [address] PCP - General 03/12/01 10/29/22 documented as of this encounter
--- OUTSIDE RECORDS SUMMARY | 2025-01-27 11:54 | XMS_ITS | Encounter Summary ---
Author Organization [facility] Address [address] [place] [address] Care Team Providers Care Bond Broker Name Role Phone Rg Read MD Primary Care Provider [phone] Encounter Details Date Type Department Care Team (Late st Contact Info) Description 07/31/2000 Outpatient Historical [facility] Internal Medicine - [address] [address] Rg Read MD [address] [place] [address] Social History Tobacco Use Types Packs/Day Years Used Date Smoking Tobacco: Never Assessed Comments Unknown Sex and Gender Information Value Date Recorded Sex Assigned at Not on file Legal Sex Female 5:17 AM BOSS DYER Gender Identity Not on file Sexual Orientation Not on file documented as of this encounter Plan of Treatment Not on file documented as of this encounter Visit Diagnoses Not on filedocumented in this encounter Care Teams Bond Broker Relationship Specialty Start Date End Date Rg Read MD [address] [place] [address] PCP - General 03/12/01 10/29/22 documented as of this encounter
--- OUTSIDE RECORDS SUMMARY | 2025-01-27 11:54 | XMS_ITS | Encounter Summary ---
Author Organization [facility] Address [address] [place] [address] Care Team Providers Care Food Processing Chemist Name Role Phone Rg Read MD Primary Care Provider [phone] Encounter Details Date Type Department Care Team (Late st Contact Info) Description 01/19/1998 Outpatient Historical [facility] Internal Medicine - [address] [address] Rg Read MD [address] [place] [address] Social History Tobacco Use Types Packs/Day Years Used Date Smoking Tobacco: Never Assessed Comments Unknown Sex and Gender Information Value Date Recorded Sex Assigned at Not on file Legal Sex Female 5:17 AM INFORMATION SYSTEMS DIRECTOR Gender Identity Not on file Sexual Orientation Not on file documented as of this encounter Plan of Treatment Not on file documented as of this encounter Visit Diagnoses Not on filedocumented in this encounter Care Teams Food Processing Chemist Relationship Specialty Start Date End Date Rg Read MD [address] [place] [address] PCP - General 03/12/01 10/29/22 documented as of this encounter
--- OUTSIDE RECORDS SUMMARY | 2025-01-27 11:54 | XMS_ITS | Encounter Summary ---
Author Organization [facility] Address [address] [place] [address] Care Team Providers Care Hog Room Supervisor Name Role Phone Rg Read MD Primary Care Provider [phone] Encounter Details Date Type Department Care Team (Late st Contact Info) Description 04/26/1998 Outpatient Historical [facility] Internal Medicine - [address] [address] Rg Read MD [address] [place] [address] Social History Tobacco Use Types Packs/Day Years Used Date Smoking Tobacco: Never Assessed Comments Unknown Sex and Gender Information Value Date Recorded Sex Assigned at Not on file Legal Sex Female 5:17 AM CORRECTIVE THERAPIST Gender Identity Not on file Sexual Orientation Not on file documented as of this encounter Plan of Treatment Not on file documented as of this encounter Visit Diagnoses Not on filedocumented in this encounter Care Teams Hog Room Supervisor Relationship Specialty Start Date End Date Rg Read MD [address] [place] [address] PCP - General 03/12/01 10/29/22 documented as of this encounter
--- OUTSIDE RECORDS SUMMARY | 2025-01-27 11:54 | XMS_ITS | Encounter Summary ---
Author Organization [facility] Address [address] [place] [address] Care Team Providers Care Senior Php Developer Name Role Phone Rg Read MD Primary Care Provider [phone] Encounter Details Date Type Department Care Team (Late st Contact Info) Description 02/16/2006 Outpatient Historical [facility] Internal Medicine - [address] [address] Rg Read MD [address] [place] [address] Social History Tobacco Use Types Packs/Day Years Used Date Smoking Tobacco: Never Assessed Comments Unknown Sex and Gender Information Value Date Recorded Sex Assigned at Not on file Legal Sex Female 5:17 AM SUPERVISOR ADVERTISING DISPATCH CLERKS Gender Identity Not on file Sexual Orientation Not on file documented as of this encounter Plan of Treatment Not on file documented as of this encounter Visit Diagnoses Not on filedocumented in this encounter Care Teams Senior Php Developer Relationship Specialty Start Date End Date Rg Read MD [address] [place] [phone] PCP - General 03/12/01 10/29/22 documented as of this encounter
--- OUTSIDE RECORDS SUMMARY | 2025-01-27 11:54 | XMS_ITS | Encounter Summary ---
Author Organization [facility] Address [address] [place] [address] Care Team Providers Care Shoe Repairer Apprentice Name Role Phone Rg Read MD Primary Care Provider [phone] Encounter Details Date Type Department Care Team (Late st Contact Info) Description 01/18/2004 Outpatient Historical [facility] Internal Medicine - [address] [address] Rg Read MD [address] [place] [address] Social History Tobacco Use Types Packs/Day Years Used Date Smoking Tobacco: Never Assessed Comments Unknown Sex and Gender Information Value Date Recorded Sex Assigned at Not on file Legal Sex Female 5:17 AM PROBATE LAWYER Gender Identity Not on file Sexual Orientation Not on file documented as of this encounter Plan of Treatment Not on file documented as of this encounter Visit Diagnoses Not on filedocumented in this encounter Care Teams Shoe Repairer Apprentice Relationship Specialty Start Date End Date Rg Read MD [address] [place] [phone] PCP - General 03/12/01 10/29/22 documented as of this encounter
--- OUTSIDE RECORDS SUMMARY | 2025-01-27 11:54 | XMS_ITS | Encounter Summary ---
Author Organization [facility] Address [address] [place] [address] Care Team Providers Care Geospatial Developer Name Role Phone Rg Read MD Primary Care Provider [phone] Encounter Details Date Type Department Care Team [...] on file Legal Sex Female 5:17 AM LACEMAKER Gender Identity Not on file Sexual Orientation Not on file documented as of this encounter Plan of Treatment Not on file documented as of this encounter Visit Diagnoses Diagnosis Other nonspecific abnormal cardiovascular system function study- Primary documented in this encounter Care Teams Geospatial Developer Relationship Specialty Start Date End Date Rg Read MD [address] [place] [phone] PCP - General 03/12/01 10/29/22 documented as of this encounter
--- OUTSIDE RECORDS SUMMARY | 2025-01-27 11:54 | XMS_ITS | Encounter Summary ---
Author Organization [facility] Address [address] [place] [address] Care Team Providers Care Marble Cutter Operator Name Role Phone Rg Read MD Primary Care Provider [phone] Encounter Details Date Type Department Care Team (Late st Contact Info) Description 04/13/2000 Outpatient Historical [facility] Internal Medicine - [address] [address] Rg Read MD [address] [place] [address] Social History Tobacco Use Types Packs/Day Years Used Date Smoking Tobacco: Never Assessed Comments Unknown Sex and Gender Information Value Date Recorded Sex Assigned at Not on file Legal Sex Female 5:17 AM STOCK CHASER Gender Identity Not on file Sexual Orientation Not on file documented as of this encounter Plan of Treatment Not on file documented as of this encounter Visit Diagnoses Not on filedocumented in this encounter Care Teams Marble Cutter Operator Relationship Specialty Start Date End Date Rg Read MD [address] [place] [phone] PCP - General 03/12/01 10/29/22 documented as of this encounter
--- OUTSIDE RECORDS SUMMARY | 2025-01-27 11:54 | XMS_ITS | Encounter Summary ---
Author Organization [facility] Address [address] [place] [address] Care Team Providers Care Bus System Operator Name Role Phone Rg Read MD Primary Care Provider [phone] Encounter Details Date Type Department Care Team (Late st Contact Info) Description 09/10/2000 Outpatient Historical [facility] Internal Medicine - [address] [address] Rg Read MD [address] [place] [phone] Social History Tobacco Use Types Packs/Day Years Used Date Smoking Tobacco: Never Assessed Comments Unknown Sex and Gender Information Value Date Recorded Sex Assigned at Not on file Legal Sex Female 5:17 AM CUSTOMS PATROL OFFICER Gender Identity Not on file Sexual Orientation Not on file documented as of this encounter Plan of Treatment Not on file documented as of this encounter Visit Diagnoses Not on filedocumented in this encounter Care Teams Bus System Operator Relationship Specialty Start Date End Date Rg Read MD [address] [place] [phone] PCP - General 03/12/01 10/29/22 documented as of this encounter"
--- NOTE | 2025-01-27 11:55 | ED_ITS ---
HPI - General Adult General Chief complaint: Extremity Injury, Lower <Rosales Terrazas MD - Last Filed: 01/27/25 14:14> Stated complaint: R hip dislocation? <Rosales Terrazas MD - Last Filed: 01/27/25 14:14> Time Seen by Provider: 01/27/25 11:33 <Rosales Terrazas MD - Last Filed: 01/27/25 14:14> History of Present Illness HPI narrative: Patient 79-year-old female who presents emergency department chief complaint of right hip pain. Patient reports she has had a prior history hip replacement and hip dislocations in the past reports her last 1 was 3 years ago the patient reports that she sees an orthopedic surgeon at [facility] rts that she turned and felt her hip dislocate. Patient reports that her pain is improved after receiving fentanyl by EMS <Rosales Terrazas MD - Last Filed: 01/27/25 14:14> Related Data Home medications: Home Medications ?Medication ?Instructions ?Recorded ?Confirmed ?Last Taken ?Type fluticasone propionate 50 2 spray intranasal DAILY PRN 10/29/20 11/23/24 Unknown History mcg/actuation nasal Allergy Symptoms spray,suspension metoprolol tartrate 25 mg tablet 25 mg PO BID 08/11/23 11/23/24 Unknown History acetaminophen 500 mg tablet 1,000 mg PO Q6H PRN 12/28/23 11/23/24 Unknown History cholecalciferol (vitamin D3) 50 50 mcg PO DAILY 12/28/23 11/23/24 Unknown History mcg (2,000 unit) capsule multivitamin 1 tablet PO DAILY 12/28/23 11/23/24 Unknown History alprazolam 0.25 mg tablet 0.25 mg PO TID PRN 02/01/24 11/23/24 Unknown History semaglutide subcut 08/30/24 11/23/24 Unknown History furosemide 40 mg tablet (Lasix) 40 mg PO .QOD 11/23/24 11/23/24 Unknown History <Rosales Terrazas MD - Last Filed: 01/27/25 14:14> Allergies/adverse reactions: Allergies Allergy/AdvReac Type Severity Reaction Status Date / Time cephalexin Allergy Intermediate Rash Verified 01/27/25 13:32 adhesive tape Allergy Unknown RASH Verified 11/23/24 11:00 Penicillins Allergy Unknown Rash Verified 01/27/25 13:32 Sulfa (Sulfonamide Allergy Unknown Rash Verified 11/23/24 11:00 Antibiotics) chlorhexidine Allergy Rash Verified 11/23/24 11:00 gabapentin AdvReac Mild Swelling Verified 11/23/24 11:00 <Rosales Terrazas MD - Last Filed: 01/27/25 14:14> Review of Systems Review of Systems: A 10 system review of systems was completed on the patient and is negative except for what is stated in the HPI. Nursing and ancillary documentation was reviewed. <Rosales Terrazas MD - Last Filed: 01/27/25 14:14> [facility] Past Medical History Medical History: Medical History BMI 27.0-27.9,adult Impaired functional mobility, balance, gait, and endurance Osteomyelitis Pain and swelling of right lower extremity Edema Chronic pain of right knee Snoring Biceps tendonitis on left Left shoulder pain Dislocated hip Encounter for routine adult health examination with abnormal findings Allergic rhinitis Fatigue Chronic low back pain Insomnia Encounter for routine adult health examination without abnormal findings Encounter for Medicare annual wellness exam Hypertension Degenerative joint disease Dizziness Sacroiliitis Chronic right hip pain Peripheral neuropathy Pre-diabetes Vitamin D deficiency Hair loss Microvascular angina Depression Post menopausal syndrome Hyperlipidemia Menieres disease <Rosales Terrazas MD - Last Filed: 01/27/25 14:14> Surgical History Surgical History: Surgical History History of cochlear implant History of cholecystectomy Cochlear implant in place (~05/2020) Left cochlear implant. History of back surgery Fused from L2-S1. History of total replacement of both hip joints <Rosales Terrazas MD - Last Filed: 01/27/25 14:14> Family History Family History: Family History Mother , Lung cancer, smoker. Lung cancer <Rosales Terrazas MD - Last Filed: 01/27/25 14:14> Social History Social History: Social History Social History: Surrogate decision maker: Sunita Miranda, spouse. Code status: Full code. Smoking status: Never smoker Second hand tobacco smoke exposure: Yes Alcohol intake: current Drinks per week: 10 Alcohol use details: Drinks alcohol socially and in moderation. Substance use: never Substance use type: does not use Lack of Transportation: No Lack of Food: Never True Current Housing: I Have Housing Concerned About Future Housing: No Difficulty Paying for Meds: No Currently Unemployed: No Education: Bachelor's Degree Difficulty w/ Childcare or Family Care: No Living arrangements: with family Additional living arrangements comments: Resides in [place] with her , dog, and 2 cats. They have no children. 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 Gender identity (if verbalized by the patient): Female Sexual Orientation (if Verbalized by the Patient): Lesbian, Wheat, or Homosexual Spiritual care concerns: No <Rosales Terrazas MD - Last Filed: 01/27/25 14:14> Exam Narrative: GENERAL: Well-appearing, well-nourished, and in no acute distress. HEAD: Normocephalic, atraumatic. EYES: PERRLA and EOMI. ENT: Nares clear, no rhinorrhea or epistaxis. Mucous membranes moist. NECK: Supple. CHEST: Clear to auscultation. No respiratory distress. HEART: Regular rate and rhythm. No murmur heard. Normal peripheral pulses. ABDOMEN: Soft, nontender, nondistended, normal active bowel sounds. EXTREMITIES: Normal range of motion in all extremities except for right hip obvious dislocation of the right hip. No edema. SKIN: Warm, dry, no rash. NEURO: No focal deficits. Alert and oriented x3. PSYCH: Normal mood and affect. <Rosales Terrazas MD - Last Filed: 01/27/25 14:14> Course Vital Signs Vital signs: Vital Signs Temperature 36.4 C 01/27/25 11:27 Pulse Rate 63 01/27/25 11:27 Respiratory Rate 18 01/27/25 11:27 Blood Pressure 104/66 01/27/25 11:27 Pulse Oximetry 97 01/27/25 11:27 Oxygen Delivery Room Air 01/27/25 11:27 Temperature 36.2 C L 01/27/25 13:45 Pulse Rate 62 01/27/25 13:45 Respiratory Rate 16 01/27/25 13:45 Blood Pressure 123/58 L 01/27/25 13:45 Pulse Oximetry 99 01/27/25 13:45 Oxygen Delivery Room Air 01/27/25 13:45 Oxygen Flow Rate 2 01/27/25 13:15 <Rosales Terrazas MD - Last Filed: 01/27/25 14:14> Vital Signs Temperature 36.4 C 01/27/25 11:27 Pulse Rate 63 01/27/25 11:27 Respiratory Rate 18 01/27/25 11:27 Blood Pressure 104/66 01/27/25 11:27 Pulse Oximetry 97 01/27/25 11:27 Oxygen Delivery Room Air 01/27/25 11:27 Temperature 36.2 C L 01/27/25 13:45 Pulse Rate 62 01/27/25 13:45 Respiratory Rate 16 01/27/25 13:45 Blood Pressure 123/58 L 01/27/25 13:45 Pulse Oximetry 99 01/27/25 13:45 Oxygen Delivery Room Air 01/27/25 13:45 Oxygen Flow Rate 2 01/27/25 13:15 <Fred Palma MD - Last Filed: 01/27/25 13:37> Procedures Orthopedic Joint Reduction Joint #1: Shoulder Technique Used (if applicable): traction/counter-traction <Fred Palma MD - Last Filed: 01/27/25 13:37> Technique used: traction/counter-traction and direct manipulation <Fred Palma MD - Last Filed: 01/27/25 13:37> Splint Applied: Yes <Fred Palma MD - Last Filed: 01/27/25 13:37> Procedural Sedation Procedural Sedation #1: Procedural Sedation Date: 01/27/25 <Rosales Terrazas MD - Last Filed: 01/27/25 14:14> Procedural Sedation Time: 11:57 <Rosales Terrazas MD - Last Filed: 01/27/25 14:14> Presedation Evaluation: GENERAL: Well-appearing, well-nourished, and in no acute distress. HEAD: Normocephalic, atraumatic. EYES: PERRLA and EOMI. ENT: Nares clear, no rhinorrhea or epistaxis. Mucous membranes moist. NECK: Supple. CHEST: Clear to auscultation. No respiratory distress. HEART: Regular rate and rhythm. No murmur heard. Normal peripheral pulses. ABDOMEN: Soft, nontender, nondistended, normal active bowel sounds. EXTREMITIES: Normal range of motion obvious dislocation of the right hip. No edema. SKIN: Warm, dry, no rash. NEURO: No focal deficits. Alert and oriented x3. PSYCH: Normal mood and affect. <Rosales Terrazas MD - Last Filed: 01/27/25 14:14> Procedure: Close reduction of right hip dislocation <Rosales Terrazas MD - Last Filed: 01/27/25 14:14> Time Out: Performed immediately before procedure <Rosales Terrazas MD - Last Filed: 01/27/25 14:14> Informed Consent Obtained: yes <Rosales Terrazas MD - Last Filed: 01/27/25 14:14> Equipment in Room: bag and mask, capnography, clock and watch hands mounter, crash cart, oxygen, pulse oximeter and suction <Rosales Terrazas MD - Last Filed: 01/27/25 14:14> Plan for Sedation: deep sedation <Rosales Terrazas MD - Last Filed: 01/27/25 14:14> ASA Class: II <Rosales Terrazas MD - Last Filed: 01/27/25 14:14> Mallampati Classification: class II <Rosales Terrazas MD - Last Filed: 01/27/25 14:14> NPO Status: last solid food (hours ago) (2) <Rosales Terrazas MD - Last Filed: 01/27/25 14:14> Explanation to Patient/Family: Risk/Benefits/Alternatives and Pt/Family agreed with plan <Rosales Terrazas MD - Last Filed: 01/27/25 14:14> Pt. Educated on Procedural Sedation: Yes <Rosales Terrazas MD - Last Filed: 01/27/25 14:14> Re-evaluated immediately prior: Yes <Rosales Terrazas MD - Last Filed: 01/27/25 14:14> Preparation: clock and watch hands mounter applied, pulse oximeter, capnometry used, supplemental O2 applied, suction/airway equipment at bedside and IV secured <Rosales Terrazas MD - Last Filed: 01/27/25 14:14> IV Propofol dose (mg): 130 <Rosales Terrazas MD - Last Filed: 01/27/25 14:14> Patient Tolerated Procedure: well <Rosales Terrazas MD - Last Filed: 01/27/25 14:14> Complications: none <Rosales Terrazas MD - Last Filed: 01/27/25 14:14> Additional Comments: Procedure for reduction was performed by Dr. Juancho Mock independently performed the sedation <Rosales Terrazas MD - Last Filed: 01/27/25 14:14> Medical Decision Making Vital Signs Vital Signs: Vital Signs Temperature 36.4 C 01/27/25 11:27 Pulse Rate 63 01/27/25 11:27 Respiratory Rate 18 01/27/25 11:27 Blood Pressure 104/66 01/27/25 11:27 Pulse Oximetry 97 01/27/25 11:27 Oxygen Delivery Room Air 01/27/25 11:27 Temperature 36.2 C L 01/27/25 13:45 Pulse Rate 62 01/27/25 13:45 Respiratory Rate 16 01/27/25 13:45 Blood Pressure 123/58 L 01/27/25 13:45 Pulse Oximetry 99 01/27/25 13:45 Oxygen Delivery Room Air 01/27/25 13:45 Oxygen Flow Rate 2 01/27/25 13:15 <Rosales Terrazas MD - Last Filed: 01/27/25 14:14> Vital Signs Temperature 36.4 C 01/27/25 11:27 Pulse Rate 63 01/27/25 11:27 Respiratory Rate 18 01/27/25 11:27 Blood Pressure 104/66 01/27/25 11:27 Pulse Oximetry 97 01/27/25 11:27 Oxygen Delivery Room Air 01/27/25 11:27 Temperature 36.2 C L 01/27/25 13:45 Pulse Rate 62 01/27/25 13:45 Respiratory Rate 16 01/27/25 13:45 Blood Pressure 123/58 L 01/27/25 13:45 Pulse Oximetry 99 01/27/25 13:45 Oxygen Delivery Room Air 01/27/25 13:45 Oxygen Flow Rate 2 01/27/25 13:15 <Fred Palma MD - Last Filed: 01/27/25 13:37> Discharge Plan Discharge Clinical Impression: Dislocation of internal right hip prosthesis, initial encounter <Rosales Terrazas MD - Last Filed: 01/27/25 14:14> Patient Disposition: Home <Rosales Terrazas MD - Last Filed: 01/27/25 14:14> Condition: Stable <Rosales Terrazas MD - Last Filed: 01/27/25 14:14> Instructions: Antibiotic Form, Deep Sedation (ED), Hip Dislocation (ED), Knee Immobilizer (ED) <Rosales Terrazas MD - Last Filed: 01/27/25 14:14> Additional Instructions: Please follow-up with your orthopedic surgeon at [facility] as soon as possible <Rosales Terrazas MD - Last Filed: 01/27/25 14:14> Patient Language: Wolof <Rosales Terrazas MD - Last Filed: 01/27/25 14:14> Prescriptions: No Action alprazolam 0.25 mg tablet 0.25 mg PO TID PRN furosemide [Lasix] 40 mg tablet 40 mg PO .QOD fluticasone propionate 50 mcg/actuation spray,suspension 2 spray NASAL DAILY PRN (Reason: Allergy Symptoms) Rx Instructions: administer into each nostril azelastine 137 mcg (0.1 %) aerosol,spray See Rx Instructions .ROUTE .COMPLEX PRN (Reason: seasonal allergies) Qty: 30 2RF Dose Instruction: SPRAY 2 SPRAYS IN EACH NOSTRIL EVERY 12 HOURS Rx Instructions: SPRAY 2 SPRAYS IN EACH NOSTRIL EVERY 12 HOURS PRN; metoprolol tartrate 25 mg tablet 25 mg PO BID duloxetine 60 mg capsule,delayed release(DR/EC) See Rx Instructions .ROUTE .COMPLEX Qty: 90 1RF Dose Instruction: TAKE 1 CAPSULE BY MOUTH ONCE DAILY Rx Instructions: TAKE 1 CAPSULE BY MOUTH ONCE DAILY semaglutide subcut Rx Instructions: Pt using 100mg. Through Dr Watson fexofenadine-pseudoephedrine [Kimberly-D 12 Hour] 60-120 mg tablet extended release 12 hr 1 tablet PO Q12H PRN (Reason: allergy symptoms) Qty: 60 3RF acetaminophen 500 mg tablet 1,000 mg PO Q6H PRN cholecalciferol (vitamin D3) 50 mcg (2,000 unit) capsule 50 mcg PO DAILY multivitamin Tablet 1 tablet PO DAILY Eliquis 5 mg tablet See Rx Instructions .ROUTE .COMPLEX Qty: 180 1RF Dose Instruction: TAKE 1 TABLET BY MOUTH EVERY 12 HOURS Rx Instructions: TAKE 1 TABLET BY MOUTH EVERY 12 HOURS potassium chloride 20 mEq tablet extended release See Rx Instructions .ROUTE .COMPLEX Qty: 180 0RF Dose Instruction: TAKE 2 TABLETS BY MOUTH EVERY DAY Rx Instructions: TAKE 1 TABLET BY MOUTH EVERY OTHER DAY doxepin 25 mg capsule See Rx Instructions .ROUTE QHS Qty: 180 2RF Rx Instructions: Take 1 to 2 capsules po at bedtime as needed every day at bedtime PRN atorvastatin 20 mg tablet See Rx Instructions .ROUTE .COMPLEX Qty: 90 2RF Dose Instruction: TAKE 1 TABLET BY MOUTH DAILY Rx Instructions: TAKE 1 TABLET BY MOUTH DAILY cefdinir 300 mg capsule 300 mg PO Q12H Qty: 20 0RF benzonatate 200 mg capsule 200 mg PO TID PRN (Reason: cough) Qty: 30 0RF duloxetine 30 mg capsule,delayed release(DR/EC) See Rx Instructions .ROUTE .COMPLEX Qty: 90 1RF Dose Instruction: TAKE 1 CAPSULE BY MOUTH DAILY IN ADDITION TO 60 MG DOSE Rx Instructions: TAKE 1 CAPSULE BY MOUTH DAILY IN ADDITION TO 60 MG DOSE alendronate [Fosamax] 70 mg tablet 70 mg PO WEEKLY Qty: 12 0RF Rx Instructions: Take one tablet a week. <Rosales Terrazas MD - Last Filed: 01/27/25 14:14> Follow-up/Referrals: Enmanuel Gan MD [Primary Care Provider] - <Rosales Terrazas MD - Last Filed: 01/27/25 14:14> Time of Disposition: 13:34 <Rosales Terrazas MD - Last Filed: 01/27/25 14:14> 13:34 <Fred Palma MD - Last Filed: 01/27/25 13:37>
[2025-01-27] MEDS: PROPOFOL IV EMULSION 200 MG/20 ML VIAL 70 MG IV PUSH (12:54)
[2025-01-27] MEDS: SODIUM CHLORIDE 0.9% IV 500 ML IV CONT (12:56)
[2025-01-27] MEDS: PROPOFOL IV EMULSION 200 MG/20 ML VIAL 60 MG IV PUSH (13:24)
--- NOTE | 2025-01-27 13:48 | PC.NURSE ---
[address] Dr Terrazas 1259 20 mg 1302 30 mg 1306 30 mg 1308-Joint relocated
== END 2025-01-27 14:30 | disposition home or self-care (01) ==
PROVIDERS: Emergency Provider Emergency Medicine; PCP Internal Medicine
DX: T84.020A Dislocation of internal right hip prosthesis, initial encounter (principal); X50.0XXA Overexertion from strenuous movement or load, initial encounter
CPT/HCPCS: 27265; 73502; 99285; J2704; J7040

== ENCOUNTER 2025-04-04 16:12 | Outpatient (CLI) | payer MEDICARE, SELFPAY ==
--- OUTSIDE RECORDS SUMMARY | 2003-07-01 06:30 | XMS_ITS | Continuity of Care Document ---
Author Organization [facility] Address [id number] [place] [address] [address] [place] [address] Phone Care Team Providers Care Fast Food Manager Name Role Phone Ventura OD, Robert Unavailable Unavailable Advance Directives Directive Yes / No Effective Date File Name No Information Encounters Encounter Description Practice Location Reason(s) For Visit Diagnoses Date Provider Providers Copied on Encounter [facility], [address], [place], [place], [id number], [place] tel:[phone] [facility] No Information Dec-0 6-200 3 Ventura OD Robert. [address] , [address], [place], [address], [place]. tel:[phone] Family History Family Member Type Diagnosis Age At Onset No Information Payers Payer name Insurance type Covered green party ID Authoriza tion(s) No Information Social History Type Description Quantity Date Captured Comments Sex Female Smoking Status No Information Chief Complaint And Reason For Visit No Information Reason For Referral Reason For Referral No Information History Of Present Illness Encounter Date Complaint History Of Prese nt Illness No Information Functional Status Date Functional Assessmen t No Information Instructions Date Instruction Additional Infor mation No Information Assessments Type Assessment Date No Information Patient Care Teams Name Effective Dates (start - stop) Status Members No Information
--- OUTSIDE RECORDS SUMMARY | 2020-01-30 10:15 | XMS_ITS | Continuity of Care Document ---
Author Organization [facility] Address [address] [place] [address] Phone Care Team Providers Care Retail Client Solutions Consultant Name Role Phone Rg Broussard MD Unavailable Unavailable Procedures Procedure Date INJECTION PROCEDURE FOR SACRIOLIAC JOINT W/ IMAGE GUIDANCE SURGICAL TRAY DEPO-MEDROL 80MG Advance Directives Directive Yes / No Effective Date File Name No Information Encounters Encounter Description Practice Location Reason(s) For Visit Diagnoses Date Provider Providers [facility] [address], [place], [place], [id number], [place] tel:[phone] [facility] No Information Bobo Diez. [address] , [place], [place], [id number], [place]. tel:[phone] Referring Provider: [address], [place], [address]. tel:[phone] Family History Family Member Type Diagnosis Age At Onset No Information Payers Payer name Insurance type Covered democrat ID Authoriza tion(s) [facility] [employer] MEDIC[employer] ADVANTAGE MB [id number] Social History Type Description Quantity Date Captured [...]
[2025-04-04 16:36] LABS: Hematocrit 40.3 % (37.0-47.0); Hemoglobin 13.7 g/dL (12.0-15.0); Immature Granulocyte Percent A 0.2 % (0-0.5); Lymphocytes Absolute Auto 1.56 K/mm3 (0.9-3.2); Mean Corpuscular HGB Conc 34.0 g/dl (32-36); Mean Corpuscular Hemoglobin 29.7 pg (26-34); Mean Corpuscular Volume 87.4 fl (80-100); Nucleated Red Blood Cells Absolute Auto 0.000 K/mm3 (0.0-0.012); Nucleated Red Blood Cells Perc 0.0 % (0.0-0.2); Platelet Count Result 253 k/mm3 (150-375); Red Blood Count 4.61 M/mm3 (4.2-5.4); White Blood Count 4.8 K/mm3 (4.5-10.0)
[2025-04-04 16:48] LABS: Anion Gap 6 mmol/L (4-12); Blood Urea Nitrogen 13 mg/dL (7-17); Calcium 9.2 mg/dL (8.4-10.2); Carbon Dioxide 27 mmol/L (22-30); Chloride 104 mmol/L (98-107); Cholesterol 122 mg/dL (0-200); Estimated Glomerular Filt Rate > 60; Glucose 76 mg/dL (65-110); HDL Direct 54 mg/dL; Potassium 4.1 mmol/L (3.4-5.0); Sodium 137 mmol/L (137-145); Triglycerides 117 mg/dL (<150)
--- OUTSIDE RECORDS SUMMARY | 2025-04-04 17:07 | XMS_ITS | Encounter Summary ---
Author Organization [facility] Address 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
--- OUTSIDE RECORDS SUMMARY | 2025-04-04 17:07 | XMS_ITS | Encounter Summary ---
Author Organization [employer] [facility] Address 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
--- OUTSIDE RECORDS SUMMARY | 2025-04-04 17:07 | XMS_ITS | Encounter Summary ---
Author Organization [facility] Address [address] [place] [address] Care Team Providers Care Voice Intercept Technician Name Role Phone Rg Read MD Primary Care Provider [phone] Encounter Details Date Type Department Care Team (Late st Contact Info) Description 03/01/2001 Outpatient Historical [facility] Internal Medicine - [facility] [address] [address] Laquita Parry, Eddie Jackson MD NO ADDRESS ON FILE Social History Tobacco Use Types Packs/Day Years Used Date Smoking Tobacco: Never Assessed Comments Unknown Sex and Gender Information Value Date Recorded Sex Assigned at Not on file 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
--- OUTSIDE RECORDS SUMMARY | 2025-04-04 17:08 | XMS_ITS | Encounter Summary ---
Author Organization [facility] Address 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
--- OUTSIDE RECORDS SUMMARY | 2025-04-04 17:08 | XMS_ITS | Encounter Summary ---
Author Organization [facility] Address 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
--- OUTSIDE RECORDS SUMMARY | 2025-04-04 17:08 | XMS_ITS | Encounter Summary ---
Author Organization [facility] Address [address] [place] [address] Care Team Providers Care Burnt Lime Drawer Name Role Phone Rg Read MD Primary Care Provider [phone] Encounter Details Date Type Department Care Team (Late st Contact Info) Description 05/15/2005 Outpatient Historical [facility] Internal Medicine - [facility] [address] [address] Laquita Parry, Eddie Jackson MD NO ADDRESS ON FILE Social History Tobacco Use Types Packs/Day Years Used Date Smoking Tobacco: Never Assessed Comments Unknown Sex and Gender Information Value Date Recorded Sex Assigned at Not on file 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
--- OUTSIDE RECORDS SUMMARY | 2025-04-04 17:08 | XMS_ITS | Encounter Summary ---
Author Organization [facility] Address 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
--- OUTSIDE RECORDS SUMMARY | 2025-04-04 17:08 | XMS_ITS | Encounter Summary ---
Author Organization [facility] Address 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
--- OUTSIDE RECORDS SUMMARY | 2025-04-04 17:08 | XMS_ITS | Encounter Summary ---
Author Organization [facility] Address [address] [place] [address] Care Team Providers Care Supervisor Of Officials Name Role Phone Rg Read MD Primary Care Provider [phone] Encounter Details Date Type Department Care Team (Late st Contact Info) Description 09/10/1999 Outpatient Historical [facility] Internal Medicine - 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
--- OUTSIDE RECORDS SUMMARY | 2025-04-04 17:08 | XMS_ITS | Encounter Summary ---
Author Organization [facility] Address 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
--- OUTSIDE RECORDS SUMMARY | 2025-04-04 17:08 | XMS_ITS | Encounter Summary ---
Author Organization [facility] Address 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
--- OUTSIDE RECORDS SUMMARY | 2025-04-04 17:08 | XMS_ITS | Encounter Summary ---
Author Organization [facility] Address [address] [place] [address] Care Team Providers Care Equal Opportunity Representative Name Role Phone Enmanuel Gan MD Primary Care Provider [phone] Tg Houston MD Unavailable [phone] Guerrero Hunter DPT Unavailable [phone] Guerrero Weiner REUSE TECHNICIAN Unavailable [phone] Stephen Barth MD Unavailable [phone] Karlie Hernandez RN Unavailable [phone] Encounter Details Date Type Department Care Team (Late st Contact Info) Description 04/09/2021 Telephone [facility] [address] [place] [address] Transcribed Order, Provider Social History Tobacco Use Types Packs/Day Years Used Date Smoking Tobacco: Never Smokeless Tobacco: Never Alcohol Use Standard Drinks/Week Comments Yes 5 (1 standard drink = 0.6 oz pur e alcohol) Social Connection and Isolation Panel Answer Date Recorded In a typical week, how many times do you talk on the phone with family, friends, or neighbors? More than three times a week 07/30/2020 How often do you get togethe r with friends or relatives? Twice a week 07/30/2020 How often do you attend chur or nondenominational services? 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 Gender Identity Not on file Sexual [...] documented as of this encounter Care Teams Equal Opportunity Representative Relationship Specialty Start Date End Date Enmanuel Gan MD [address] [place] [address] PCP - General Internal Medicine 04/26/20 Tg Houston MD [address] [place] [address] Consulting Physician Cardiology 07/18/20 Guerrero Hunter DPT [address] [facility] [address] [place] [address] Physical Therapist Physical Therapy 11/08/20 Guerrero Weiner, [facility] [address] [facility] [address] [place] [address] Endoscopy Tech Physical Therapy 12/12/20 Stephen Barth MD [address] [place] [address] Referring Physician Transplant 10/19/23 Karlie Hernandez, [facility] [address] [facility] [address] [place], [place] [id number] [address] Outpatient Deputy Court Clerk 12/15/23 01/12/24 documented as of this encounter
--- OUTSIDE RECORDS SUMMARY | 2025-04-04 17:08 | XMS_ITS | Encounter Summary ---
Author Organization [facility] Address [address] [place] [address] Care Team Providers Care General Utility Maintenance Repairer Name Role Phone Rg Read MD Primary Care Provider [phone] Encounter Details Date Type Department Care Team (Late st Contact Info) Description 04/01/2005 Outpatient Historical [facility] [place] [address] [address] 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
--- OUTSIDE RECORDS SUMMARY | 2025-04-04 17:08 | XMS_ITS | Encounter Summary ---
Author Organization [facility] Address [address] [place] [address] Care Team Providers Care Support Engineer Name Role Phone Rg Read MD Primary Care Provider Encounter Details Date Type Department Care Team (Late st Contact Info) Description 04/13/2000 Outpatient Historical [facility] Internal Medicine - [address] [address] Rg Read MD [address] [place] [address] Social History Tobacco Use Types Packs/Day Years Used Date Smoking Tobacco: Never Assessed Comments Unknown Sex and Gender Information Value Date Recorded Sex Assigned at Not on file Legal Sex Female 5:17 AM CARPET SEWER Gender Identity Not on file Sexual Orientation Not on file documented as of this encounter Plan of Treatment Not on file documented as of this encounter Visit Diagnoses Not on filedocumented in this encounter Care Teams Support Engineer Relationship Specialty Start Date End Date Rg Read MD [address] [place] [address] PCP - General 03/12/01 10/29/22 documented as of this encounter
--- OUTSIDE RECORDS SUMMARY | 2025-04-04 17:08 | XMS_ITS | Encounter Summary ---
Author Organization [facility] Address [address] [place] [address] Care Team Providers Care Infection Control Practitioner Name Role Phone Rg Read MD Primary Care Provider [phone] Encounter Details Date Type Department Care Team (Late st Contact Info) Description 11/23/2006 Outpatient Historical [facility] Internal Medicine - [address] [address] Rg Read MD [address] [place] [address] Social History Tobacco Use Types Packs/Day Years Used Date Smoking Tobacco: Never Assessed Comments Unknown Sex and Gender Information Value Date Recorded Sex Assigned at Not on file Legal Sex Female 5: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
--- OUTSIDE RECORDS SUMMARY | 2025-04-04 17:08 | XMS_ITS | Encounter Summary ---
Author Organization [facility] Address [address] [place] [address] Care Team Providers Care Yarn Texture Machine Operator Name Role Phone Rg Read MD Primary Care Provider [phone] Encounter Details Date Type Department Care Team (Late st Contact Info) Description 10/28/2001 Outpatient Historical [facility] Internal Medicine - [address] [address] Rg Read MD [address] [place] [address] Social History Tobacco Use Types Packs/Day Years Used Date Smoking Tobacco: Never Assessed Comments Unknown Sex and Gender Information Value Date Recorded Sex Assigned at Not on file Legal Sex Female 5:17 AM SOFTWARE ANALYST Gender Identity Not on file Sexual Orientation Not on file documented as of this encounter Plan of Treatment Not on file documented as of this encounter Visit Diagnoses Not on filedocumented in this encounter Care Teams Yarn Texture Machine Operator Relationship Specialty Start Date End Date Rg Read MD [address] [place] [address] PCP - General 03/12/01 10/29/22 documented as of this encounter
--- OUTSIDE RECORDS SUMMARY | 2025-04-04 17:08 | XMS_ITS | Encounter Summary ---
Author Organization [facility] Address [address] [place] [address] Care Team Providers Care Wire Stripping Machine Operator Name Role Phone Rg Read MD Primary Care Provider [phone] Encounter Details Date Type Department Care Team (Latest Contact Info) Description 10/09/2005 Outpatient Historical [facility] Rg Read MD [address] [address] Shortness of Breath (Primary Dx) Social History Tobacco Use Types Packs/Day Years Used Date Smoking Tobacco: Never Assessed Comments Unknown Sex and Gender Information Value Date Recorded Sex Assigned at Not on file Legal Sex Female 5:17 AM CONTINUOUS LINTER DRIER 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
--- OUTSIDE RECORDS SUMMARY | 2025-04-04 17:08 | XMS_ITS | Encounter Summary ---
Author Organization [facility] Address [address] [place] [address] Care Team Providers Care Dinkey Locomotive Engineer Name Role Phone Rg Read MD Primary Care Provider [phone] Encounter Details Date Type Department Care Team (Late st Contact Info) Description 03/17/2005 Outpatient Historical [facility] Internal Medicine - [address] [address] Rg Read MD [address] [place] [address] Social History Tobacco Use Types Packs/Day Years Used Date Smoking Tobacco: Never Assessed Comments Unknown Sex and Gender Information Value Date Recorded Sex Assigned at Not on file Legal Sex Female 5:17 AM MATERIAL DISTRIBUTOR Gender Identity Not on file Sexual Orientation Not on file documented as of this encounter Plan of Treatment Not on file documented as of this encounter Visit Diagnoses Not on filedocumented in this encounter Care Teams Dinkey Locomotive Engineer Relationship Specialty Start Date End Date Rg Read MD [address] [place] [address] PCP - General 03/12/01 10/29/22 documented as of this encounter
--- OUTSIDE RECORDS SUMMARY | 2025-04-04 17:08 | XMS_ITS | Encounter Summary ---
Author Organization [facility] Address [address] [place] [address] Care Team Providers Care Pilot Plant Research Technician Name Role Phone Rg Read MD Primary Care Provider [phone] Encounter Details Date Type Department Care Team (Late st Contact Info) Description 02/16/2006 Outpatient Historical [facility] Internal Medicine - [address] [address] Rg Read MD [address] [place] [address] Social History Tobacco Use Types Packs/Day Years Used Date Smoking Tobacco: Never Assessed Comments Unknown Sex and Gender Information Value Date Recorded Sex Assigned at Not on file Legal Sex Female 5:17 AM WALL MIRROR 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
--- OUTSIDE RECORDS SUMMARY | 2025-04-04 17:08 | XMS_ITS | Encounter Summary ---
Author Organization [facility] Address [address] [place] [address] Care Team Providers Care Marketing Operations Analyst Name Role Phone Rg Read MD Primary Care Provider [phone] Encounter Details Date Type Department Care Team (Late st Contact Info) Description 10/09/2005 Outpatient Historical [facility] Support Services Respiratory Therapy [facility] [address] P[facility], [place] [address] Pablo Davidson MD [address] [place] [address] Social History Tobacco Use Types Packs/Day Years Used Date Smoking Tobacco: Never Assessed Comments Unknown Sex and Gender Information Value Date Recorded Sex Assigned at Not on file Legal Sex Female 5:17 AM WRIST LINER Gender Identity Not on file Sexual Orientation Not on file documented as of this encounter Plan of Treatment Not on file documented as of this encounter Visit Diagnoses Not on filedocumented in this encounter Care Teams Marketing Operations Analyst Relationship Specialty Start Date End Date Rg Read MD [address] [place] [phone] PCP - General 03/12/01 10/29/22 documented as of this encounter
--- OUTSIDE RECORDS SUMMARY | 2025-04-04 17:08 | XMS_ITS | Encounter Summary ---
Author Organization [facility] Address [address] [place] [address] Care Team Providers Care Vascular Technologist Sonographer Name Role Phone Rg Read MD Primary Care Provider [phone] Encounter Details Date Type Department Care Team (Late st Contact Info) Description 10/28/2001 Outpatient Historical [facility] Internal Medicine - [address] [address] Rg Read MD [address] [place] [address] Social History Tobacco Use Types Packs/Day Years Used Date Smoking Tobacco: Never Assessed Comments Unknown Sex and Gender Information Value Date Recorded Sex Assigned at Not on file Legal Sex Female 5:17 AM INTERVENTIONAL PHYSICIAN Gender Identity Not on file Sexual Orientation Not on file documented as of this encounter Plan of Treatment Not on file documented as of this encounter Visit Diagnoses Not on filedocumented in this encounter Care Teams Vascular Technologist Sonographer Relationship Specialty Start Date End Date Rg Read MD [address] [place] [address] PCP - General 03/12/01 10/29/22 documented as of this encounter
--- OUTSIDE RECORDS SUMMARY | 2025-04-04 17:08 | XMS_ITS | Encounter Summary ---
Author Organization [facility] Address [address] [place] [address] Care Team Providers Care Color Checker Name Role Phone Rg Read MD Primary Care Provider [phone] Encounter Details Date Type Department Care Team (Late st Contact Info) Description 11/07/1999 Outpatient Historical [facility] Internal Medicine - [address] [address] Rg Read MD [address] [place] [address] Social History Tobacco Use Types Packs/Day Years Used Date Smoking Tobacco: Never Assessed Comments Unknown Sex and Gender Information Value Date Recorded Sex Assigned at Not on file Legal Sex Female 5:17 AM SMT OPERATOR Gender Identity Not on file Sexual Orientation Not on file documented as of this encounter Plan of Treatment Not on file documented as of this encounter Visit Diagnoses Not on filedocumented in this encounter Care Teams Color Checker Relationship Specialty Start Date End Date Rg Read MD [address] [place] [address] PCP - General 03/12/01 10/29/22 documented as of this encounter
--- OUTSIDE RECORDS SUMMARY | 2025-04-04 17:08 | XMS_ITS | Encounter Summary ---
Author Organization [facility] Address [address] [place] [address] Care Team Providers Care Manager Analysis Name Role Phone Rg Read MD Primary Care Provider [phone] Encounter Details Date Type Department Care Team (Late st Contact Info) Description 11/01/1998 Outpatient Historical [facility] Internal Medicine - [facility] [address] [address] Laquita Parry, Eddie Jackson MD NO ADDRESS ON FILE Social History Tobacco Use Types Packs/Day Years Used Date Smoking Tobacco: Never Assessed Comments Unknown Sex and Gender Information Value Date Recorded Sex Assigned at Not on file Legal Sex Female 5:17 AM ACCOUNT 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
--- OUTSIDE RECORDS SUMMARY | 2025-04-04 17:08 | XMS_ITS | Continuity of Care Document ---
Author Organization [facility] Address [address] [place] [address] Insurance Providers Payer Plan Claims Address Claims Phone Policy Number Group Number Relation Employer Guarantor Name Guarantor Guarantor Address Guarantor Phone [employer] [address], [place] [address] tel:[phone] Self Macie Briseno 1945 [address] [place] [address] [employer] [address], [place] [address] tel:[phone] Gold Briseno 1945 [address] [place] [address] [employer] [address], [place] [address] tel:[phone] Gold Briseno 1945 [address] [place] [address] Problems Condition ICD9 code ICD10 code SNOMED code Start Date End Date S tatus Fusion of spine, lumbar region M43.26 Working Unspecified fracture of unspecified lumbar vertebra, subsequent encounter for fracture with nonunion S32.009K Working Fusion of spine, thoracolumbar region M43.25 Work ing Osteomyelitis of vertebra, lumbar region M46.26 W orking Radiculopathy, lumbar region M54.16 Working Sensorineural hearing loss, bilateral H90.3 Working Encounter for adjustment and management of cochlear device Z45.321 Working Results No Results Allergies, adverse reactions, alerts No known allergies and adverse reactions Medications No administered medications reported Vital Signs No vital signs reported Social History No smoking Hx information available
--- OUTSIDE RECORDS SUMMARY | 2025-04-04 17:08 | XMS_ITS | Clinical Summary ---
Author Organization [facility] Care Team Providers Care Fountain Waitress/Waiter Name Role Phone Enmanuel Gan MD Primary Care Provider [phone] Tg Houston MD Unavailable Guerrero Hunter DPT Unavailable [phone] Guerrero Weiner PATTERN FILER Unavailable [phone] Stephen Barth MD Unavailable Allergies [...] once a day. Follow up with your ballpoint pen cartridge tester within one week of discharge. 30 tablet 4 Active Eliquis 5 mg tabletIndication s:atrial [...] spray 1 spray(s), Nasal, daily, 1 each, [place], 0 4 Active sucralfate (Carafate) 1 gram [...] day 60 tablet 11 4 025 Active alendronate (FOSAMAX) 70 mg tablet TAKE 1 TABLET BY MOUTH 1 TIME A WEEK 5 Active Active Problems Problem Noted Date Diagnosed [...] arnold valadez, in situ 06/06/2021 Overview (06/06/2021): [place] Sci DDD Dynagen ICD imp on 06/05/21 for NICM/Mob II/NSVT. Hemal (EP-following) [place] (Card) - Latitude Fusion of spine of [...] arrange for dual chamber ICD implantation w/anesthesia (Flextrip). --Hold beta nayana. --Flecainide stopped indefinitely. --Hold apixaban for 2 days prior to procedure. Apical variant hypertrophic cardiomyopathy 04/15 Assessment & Plan (11/15/2024 3:13 PM CDT): Chronic, stable. S/p dual ICD. No ventricular arrhythmias or syncope. --Continue remote monitoring --Continue metoprolol Assessment & Plan (07/09/2021 3:33 PM MACHINE GREASER): Apical hypertrophic cardiomyopathy without evidence of congestive [...] evaluation Assessment & Plan (07/09/2021 3:33 PM MACHINE GREASER): Chronically anticoagulated with Eliquis. Assessment & Plan [...] interval. Assessment & Plan (07/16/2020 1:56 PM MACHINE GREASER): Recent diagnosis of paroxysmal atrial fibrillation as [...] (07/11/2020): Added automatically from request for surgery [id number] History of spinal fusion for scoliosis 0 [...] 06/30/2017 Assessment & Plan (07/09/2021 3:33 PM MACHINE GREASER): No recent symptoms. She had previously been [...] continue. Assessment & Plan (07/16/2020 1:56 PM MACHINE GREASER): Well controlled with diltiazem which she should continue. Assessment & Plan (05/24/2019 12:26 PM CDT): Minimally symptomatic on diltiazem. She is not known to have coronary artery disease. Assessment & Plan (06/30/2017 4:48 PM MACHINE GREASER): History of microvascular angina. Her exertional angina [...] made. Assessment & Plan (06/30/2017 4:48 PM MACHINE GREASER): On chronic lipid lowering therapy with good [...] 06/24/2011 Assessment & Plan (07/09/2021 3:34 PM MACHINE GREASER): Continue atorvastatin 20 mg daily. Assessment & [...] do not see any lengthening of the NV interval prior to a nonconducted sinus beat, [...] is under consideration. Echocardiogram on 06/28/2020 at [facility] demonstrated an EF greater than 70%; will repeat. Encounters Date Type Department Care Team Description 03/23/2025 Orders Only [facility] [address] [facility] [address], [place] [phone] Ashvin Recio III, MD 03/23/2025 Telephone Arrhythmia Center [address] [facility] [address], [place] [address] Ashvin Recio III, MD Symptom Based Call 03/22/2025 1:00 PM CDT Procedure visit [facility] [address] [place] [address] Advanced Medicine 11th [place] [address] [place] [phone] Zee Garcia Au.D. Sensorineural hearing loss, asymmetrical (Primary Dx); Encounter for adjustment and management of cochlear device 03/08/2025 10:10 AM CDT Office Visit [facility] [address] [place] [phone] Gagan An MD Hx of total hip arthroplasty, right (Primary Dx); Bilateral hip pain; Lumbar spine pain; Closed dislocation of right hip, subsequent encounter 03/08/2025 9:45 AM CDT - 03/08/2025 11:59 PM CDT Hospital Encounter [facility] [address] [place] [address] Hx of total hip arthroplasty, right Discharge Disposition: Discharge to home or self care 02/20/2025 9:15 AM CDT Ancillary Procedure [facility] [address] [facility] [address] [place] [id number] ICD (implantable cardioverter-defibril lator), dual, in situ (Primary Dx); NICM (nonischemic cardiomyopathy) (HCC) from Last 3 Months Immunizations Immunization Administration [...] L - 2013, R - 2014 - [facility] BACK SURGERY 07/27/2016 - 2017 REVISION November 2023; lower back, 2017, 2018 VESTIBULAR NERVE SECTION Left COCHLEAR IMPLANT 06/19/2020 Left IR INJECTION ARTHROGRAM SI JOINT BILATERAL WITH GUIDANCE 02/15/2021 Bilateral TOTAL HIP ARTHROPLASTY 07/27/2013 - 2014 Bilateral IR INJECTION ARTHROGRAM SI JOINT LEFT INCLUDES IMAGING GUIDANCE 09/06/2021 Left BRAIN SURGERY Left Ear cochlear implant 2019 SPINE SURGERY 2017, 2018, 2018, 2019 Medical History Medical History Date Comments Auditory vertigo Meniere's disea se Meniere's disease Microvascular angina HLD (hyperlipidemia) Atrial fibrillation (HCC) Allergic rhinitis HL (hearing loss) Tinnitus Coronary artery disease Anxiety unknown maybe 1989 Arthritis 2019 Osteoporosis 2014 Depression 1989 Heart disease Afib 2019 Mixed [...] your home? No 01/07/2024 Social Connection and Isolation Panel Answer Date Recorded In a typical week, how many times do you talk on the phone with family, friends, or neighbors? More than three times a week 02/22/2024 Frequency of Social Gatherin gs with Friends and Family Not on file 02/22/2024 Attends Orthodoxy Services Not on file 02/21 Active Member of Clubs or Organizations Not on f ile 02/22/2024 Attends Club or Organization Meetings Not on mabel e 02/22/2024 Marital Status Not on file 02/22/2024 AUDIT-C Answer Date Recorded Q1: How [...] 01/07/2024 Hunger Vital Sign Answer Date Recorded Worried About Running Out of Food in the Last Ye ar Not on file 02/22/2024 Within the past 12 months, t he [...] file Legal Sex Female 9:09 PM MACHINE GREASER Gender Identity Not on file Sexual Orientation [...] CDT Inhaled Oxygen Concentration - - Weight 74.8 kg (165 lb) 11/22/2024 8:01 AM CDT Height 161.3 cm (5' 3.5) 11/22/2024 8:01 AM CDT Body Mass Index 28.77 11/22/2024 8:01 AM CDT Plan of Treatment Health Maintenance Due Date Last Done Comments Hepatitis C Screening 1945 Hepatitis B Screening 1964 Well Visit 65+ 2011 Osteoporosis Screening-Bone Density Scan 08/23/2017 08/23/2015 Depression Screening 01/04/2025 01/05/2024 Fall Risk Assessment 01/07/2025 01/08/2024, 11/29/19 23 Covid-19 Vaccine (5 - 2024-2 6 season) 2025 12/13/2021, 06/10/2021, 10/15/2020, Additional history exists Influenza Vaccine (#1) 2025 , 04/07/2023, 03/31/2021, Additional history exists DTaP/Tdap/Td Vaccine (3 - Td or Tdap) 03/24/2032 03/24/2022, 04/13/2020 Breast Cancer Screening-Mammogram Discontinued 013 Pneumococcal vaccine 65+ Completed 018, 10/12/2015, 04/26/2010 Zoster Vaccine Completed 07/29/2018, 04/27, 04/26/2010, Additional history exists Medical Devices Implanted Type Area Tour Agent Device Identifier Shelf Expiration Date Model / Serial / Lot [place] [employer] [place] D152 Dynagen Enduralife Easyview Hf Perspectiv 5.37x7.68cm 2 Chamber - [id number] - [id number] Implanted:Qty: 1 on 06/05/2021 by Ashvin Recio III, MD at [facility] ICD [place] [employer] [place] [id number] 06/16/2021 [id number] / [id number] / [place] [employer] [place] 7841 Lead 7841 Endocardial Pacing Mr Is-1 Bipolar Connection - [id number] - [id number] Implanted:Qty: 1 on 06/05/2021 by Ashvin Recio III, MD at [facility] Lead [place] [employer] [place] [id number] 04/12/2023 7841 / [id number] / [place] [employer] [place] 0672 [place] 4-Front 59cm Active Fixation Lead Icd - [id number] - [id number] Implanted:Qty: 1 on 06/05/2021 by Ashvin Recio III, MD at [facility] Lead [place] [employer] [place] [id number] 03/24/2023 0672 / [id number] / Cochlear Americas [id number] Implant Cochlear Cochlear Nucleus Profile Plus Slim Modiolar Electrode Ci632 - [id number] - [id number] Implanted:Qty: 1 on 06/19/2020 by Darshana Toth MD at [facility] Other - see comments Cochlear Americas 03/12/2022 [id number] / [id number] / Description:Nucleus Cochlear Implant https://www.cochlear.com/us/en/professionals/aqjdpycle-cdr-kyypvpyg/mri-guidelin es Check list https://www.cochlear.com/[email or web address]/[email or web address]_1-25_US_X RI-CK L_USA_WEB.pdf?MOD=AJPERES&CONVERT_TO=url&CACHEID=[email or web address] [email or web address] MRI paremeters https://www.Sport/Life/[email or web address]_3-17_ST_V KS-GL _[facility]_WEB.pdf?MOD=AJPERES&CONVERT_TO=url&CACHEID=[email or web address] Screws Spine Lumbar Bilateral Total Hip Arthroplasty Bilateral: Hip Depuy Spine [id number] Expedium 1 Inner Monoaxial Spine Screw Set Titanium - [id number] Implanted:Qty: 8 on 07/25/2020 by Jeremy Michelle MD at [facility] N/A: Spine Thoracic Depuy Spine [id number] / / Allosource [id number] Crushed Chip Frozen Graft 30ml Bone Cancellous - [id number] Implanted:Qty: 1 on 07/25/2020 by Jeremy Michelle MD at [facility] Allosource 01/31/2025 [id number] / / [id number] Medtronic Sofamor Danek [id number] Infuse 18mm 26mm Absorbable Sponge Sterile Water Syringe Needle - [id number] Implanted:Qty: 1 on 07/25/2020 by Jeremy Michelle MD at [facility] Medtronic Inc 02/24/2021 [id number] / / [id number] Allosource [id number] Crushed Chip Frozen Graft 30ml Bone Cancellous - [id number] Implanted:Qty: 1 on 07/25/2020 by Jeremy Michelle MD at [facility] N/A: Spine Thoracic Allosource 01/29/2025 [id number] / / [id number] Depuy Spine [id number] Expedium 6.5mm 60mm Polyaxial Spine Screw Bone Titanium 5.5mm El - [id number] Implanted:Qty: 2 on 07/25/2020 by Jeremy Michelle MD at [facility] N/A: Spine Thoracic Depuy Spine [id number] / / Depuy Spine [id number] Expedium 7mm 55mm 1 Innie Polyaxial Spine Screw Bone Titanium - [id number] Implanted:Qty: 3 on 07/25/2020 by Jeremy Michelle MD at [facility] N/A: Spine Thoracic Depuy Spine [id number] / / Depuy Spine [id number] Expedium 7mm 50mm 1 Innie Polyaxial Spine Screw Bone Titanium - [id number] Implanted:Qty: 3 on 07/25/2020 by Jeremy Michelle MD at [facility] N/A: Spine Thoracic Depuy Spine [id number] / / Depuy Spine [id number] Expedium 5.5mm 85mm Line Prebent El Spinal Titanium Nonsterile - [id number] Implanted:Qty: 2 on 07/25/2020 by Jeremy Michelle MD at [facility] N/A: Spine Thoracic Depuy Spine [id number] / / Allosource Crushed Chip Frozen Graft 90ml Bone Cancellous [id number] - [id number] Implanted:Qty: 1 on 12/02/2023 by Jeremy Michelle MD at [facility] N/A: Spine Lumbar Allosource 01/15/2028 [id number] / / [id number] Depuy Synthes Spine Substitute Bone Graft Fibergraft Large Bioactive Glass Putty [id number] - [id number] Implanted:Qty: 1 on 12/02/2023 by Jeremy Michelle MD at [facility] N/A: Spine Lumbar Depuy Synthes Spine [id number] 04/22/2026 [id number] / / [id number] Medtronic Inc Kit Graft Bone Sponge Xlg Infuse 8cc Granules [id number] - [id number] Implanted:Qty: 1 on 12/02/2023 by Jeremy Michelle MD at [facility] N/A: Spine Thoracic Medtronic Inc [id number] 01/24/2025 [id number] / / [id number] Medtronic Inc Kit Graft Bone Sponge Xlg Infuse 8cc Granules [id number] - [id number] Implanted:Qty: 1 on 12/02/2023 by Jeremy Michelle MD at [facility] N/A: Spine Thoracic Medtronic Inc [id number] 01/24/2025 [id number] / / [id number] Medtronic Inc Kit Graft Bone Sponge Xlg Infuse 8cc Granules [id number] - [id number] Implanted:Qty: 1 on 12/02/2023 by Jeremy Michelle MD at [facility] N/A: Spine Thoracic Medtronic Inc [id number] 01/24/2025 [id number] / / [id number] Allosource Crushed Chip Frozen Graft 60ml Bone Cancellous [id number] - [id number] Implanted:Qty: 1 on 12/02/2023 by Jeremy Michelle MD at [facility] N/A: Spine Thoracic Allosource 06/18/2028 [id number] / / [id number] Depuy Synthes Spine Expedium 5mm 45mm Fix Spine Cortical Screw Bone Titanium 5.5mm [id number] - [id number] Implanted:Qty: 2 on 12/02/2023 by Jeremy Michelle MD at [facility] N/A: Spine Thoracic Depuy Synthes Spine [id number] / / Depuy Synthes Spine Expedium 5.5mm 45mm Polyaxial Spine Screw Bone Titanium 5.5mm El [id number] - [id number] Implanted:Qty: 1 on 12/02/2023 by Jeremy Michelle MD at [facility] N/A: Spine Thoracic Depuy Synthes Spine [id number] / / Depuy Synthes Spine Expedium 5.5mm 50mm Polyaxial Spine Screw Bone Titanium 5.5mm El [id number] - [id number] Implanted:Qty: 3 on 12/02/2023 by Jeremy Michelle MD at [facility] N/A: Spine Thoracic Depuy Synthes Spine [id number] / / Depuy Synthes Spine Expedium 1 Inner Monoaxial Spine Screw Set Titanium [id number] - [id number] Implanted:Qty: 14 on 12/02/2023 by Jeremy Michelle MD at [facility] N/A: Spine Thoracic Depuy Synthes Spine [id number] / / Depuy Synthes Spine Expedium 5.5mm 480mm El Spinal Titanium Nonsterile [id number] - [id number] Implanted:Qty: 2 on 12/02/2023 by Jeremy Michelle MD at [facility] N/A: Spine Thoracic Depuy Synthes Spine [id number] / / Depuy Synthes Spine Substitute Bone Graft Fibergraft Large Bioactive Glass Putty [id number] - [id number] Implanted:Qty: 2 on 12/02/2023 by Jeremy Michelle MD at [facility] N/A: Spine Thoracic Depuy Synthes Spine [id number] / / Depuy Synthes Spine Screw Viper 8x65mm [id number] - [id number] Implanted:Qty: 2 on 12/02/2023 by Jeremy Michelle MD at [facility] N/A: Spine Thoracic Depuy Synthes Spine [id number] / / Procedures Procedure Name Priority Date/Time Associated Diagnosis Comments DEVICE CHECK - REMOTE Routine 03/23/2025 2:32 PM CDT AUDBASE RESULTS 03/22/2025 1:06 PM CDT XR HIP RIGHT W PELVIS 2 OR 3 VIEWS Schedule Routine, Read Routine (OP Routine) 03/08/2025 9:58 AM CDT Hx of total hip arthroplasty, right DEVICE CHECK - REMOTE Routine 02/20/2025 12:03 PM CDT NICM (nonischemic cardiomyopathy) (HCC) from Last 3 Months Results * DEVICE CHECK - REMOTE (03/23/2025 2:32 PM CDT) Anatomical Region Laterality Modality Other 03/23/2025 2:32 PM CDT Narrative 03/28/2025 9:49 AM CDT See phone encounter. JULIAN Meza Device Specialist Ashvin Recio III, MD [facility] PROCEDURES Final Result * AudBase Results (03/22/2025 1:06 PM CDT) us Provider Scanning AUDIOLOGY SERVICES ORDERABLES Final Result * XR Hip Right 2 or 3 Views W Pelvis (03/08/2025 9:58 AM CDT) Anatomical Region Laterality Modality Lower Extremities, Hip, Pelvis Right C omputed Radiography 03/08/2025 11:5 1 AM CDT Impressions 03/08/2025 12:02 PM CDT 1. Right hip arthroplasty in expected position. Dictated by: Key Ashley MD The radiology attending physician has personally reviewed this study, and had reviewed and/or edited this written report and agrees with it. Electronically signed by: Dereck Soni M.D. Narrative 03/08/2025 12:02 PM CDT EXAMINATION: XR HIP RIGHT 2 OR 3 VIEWS W PELVIS HISTORY: Follow-up for total right hip arthroplasty FINDINGS: 2 radiographs of the right hip are submitted for evaluation. Comparison to CT pelvis from 10/28/2023 Redemonstrated right and left hip total arthroplasties in expected position. Partially imaged instrumented fusion of the sacroiliac joints. No acute fractures or dislocations. Procedure Note Dereck Soni MD - 03/08/2025 EXAMINATION: XR HIP RIGHT 2 OR 3 VIEWS W PELVIS HISTORY: Follow-up for total right hip arthroplasty FINDINGS: 2 radiographs of the right hip are submitted for evaluation. Comparison to CT pelvis from 10/28/2023 Redemonstrated right and left hip total arthroplasties in expected position. Partially imaged instrumented fusion of the sacroiliac joints. No acute fractures or dislocations. IMPRESSION: 1. Right hip arthroplasty in expected position. Dictated by: Key Ashley MD The radiology attending physician has personally reviewed this study, and had reviewed and/or edited this written report and agrees with it. Electronically signed by: Dereck Soni M.D. Gagan An MD IMG XR PROCEDURES Final R esult * DEVICE CHECK - REMOTE (02/20/2025 12:03 PM CDT) Anatomical Region Laterality Modality Other Narrative 02/27/2025 8:51 PM CDT Table formatting from the original result was not included. ICD CHECK (REMOTE) Patient ID: Macie Briseno is a 79 y.o. female This patient received a [place] scientific ICD. They had a remote transmission on 02/20/2025. Device implant indications: Nonischemic dilated cardiomyopathy Interrogation of the patient's device demonstrates the following: Presenting EGM: A sensed V sensed @ 67 bpm Original Device Settings Right Atrium Right Ventricle Sensitivity (mV) Auto mV Auto mV Pacing Outputs 2.5 V @ 0.4 ms 2.5 V @ 0.4 ms Testing Measurements Right Atrium Right Ventricle Sensitivity (mV) 4.8 mV Greater than 25 mV Impedence (Ohms) 645 ohms 420 ohms High Voltage Impedence 76 ohms Pace Threshold Not done V @ ms Not done V @ ms Pacing % 13 % 1 % Battery Status: 10.5 years to YURIDIA with Charge Time 9.9 seconds Episodes last 90 days/Comments: AF [place] less than 1%, there were 10 episodes of AT/AF the longest lasting 13 seconds. There were no treated ventricular arrhythmias noted on today's remote interrogation. NORMAL DEVICE FUNCTION PROGRAMMED Medications: Anti-coagulant(s): Eliquis 5 mg twice daily Anti-arrhythmic(s): Amiodarone 200 mg daily, Lopressor 25 mg twice daily PLAN: 1) [place] scientific ICD evaluation. 2) [place] scientific remote transmission scheduled in 3 months. 3) Programming appropriate for device measurements Jacob Latif RN Ashvin Recio III, MD [facility] PROCEDURES Final Result from Last 3 [place] [address] [employer] MEDICARE [facility] MEDICARE [facility] MEDICARE Advance Directives For more information, please contact: [phone] * Full Code (Latest Code Status on [...] Communication Sunita Miranda Spouse Health Care Agent [email or web address] om Hope Pandya Friend First Alternate Health Care Agent Care Teams Fountain Waitress/Waiter Relationship Specialty Start Date End Date Enmanuel Gan MD [address] [place] [address] PCP - General Internal Medicine 04/26/20 Tg Houston MD [address] [place] [address] Consulting Physician Cardiology 07/18/20 Guerrero Hunter DPT [address] [facility] [address] [facility] [place] [address] Physical Therapist Physical Therapy 11/08/20 Guerrero Weiner, [facility] [address] [facility] [address] [place] [address] Digital Product Manager Physical Therapy 12/12/20 Stephen Barth MD [address] [place] [address] Referring Physician Transplant 10/19/23
--- OUTSIDE RECORDS SUMMARY | 2025-04-04 17:08 | XMS_ITS | Encounter Summary ---
Author Organization [facility] Address [address] [place] [address] Care Team Providers Care Cupola Liner Name Role Phone Rg Raed MD Primary Care Provider [phone] Encounter Details Date Type Department Care Team (Late st Contact Info) Description 02/29/2004 Outpatient Historical [facility] Internal Medicine - [address] [address] Rg Read MD [address] [place] [phone] Social History Tobacco Use Types Packs/Day Years Used Date Smoking Tobacco: Never Assessed Comments Unknown Sex and Gender Information Value Date Recorded Sex Assigned at Not on file Legal Sex Female 5:17 AM DEVELOPER EVANGELIST Gender Identity Not on file Sexual Orientation Not on file documented as of this encounter Plan of Treatment Not on file documented as of this encounter Visit Diagnoses Not on filedocumented in this encounter Care Teams Cupola Liner Relationship Specialty Start Date End Date Rg Read MD [address] [place] [address] PCP - General 03/12/01 10/29/22 documented as of this encounter
--- OUTSIDE RECORDS SUMMARY | 2025-04-04 17:08 | XMS_ITS | Encounter Summary ---
Author Organization [facility] Address [address] [place] [address] Care Team Providers Care Reclamation Supervisor Name Role Phone Rg Read MD Primary Care Provider [phone] Encounter Details Date Type Department Care Team (Late st Contact Info) Description 07/31/2000 Outpatient Historical [facility] Internal Medicine - [address] [address] Rg Read MD [address] [place] [phone] Social History Tobacco Use Types Packs/Day Years Used Date Smoking Tobacco: Never Assessed Comments Unknown Sex and Gender Information Value Date Recorded Sex Assigned at Not on file Legal Sex Female 5:17 AM DRAFTER LANDSCAPE Gender Identity Not on file Sexual Orientation Not on file documented as of this encounter Plan of Treatment Not on file documented as of this encounter Visit Diagnoses Not on filedocumented in this encounter Care Teams Reclamation Supervisor Relationship Specialty Start Date End Date Rg Read MD [address] [place] [address] PCP - General 03/12/01 10/29/22 documented as of this encounter
--- OUTSIDE RECORDS SUMMARY | 2025-04-04 17:08 | XMS_ITS | Clinical Summary ---
Author Organization [facility] Address [address] [place] [address] [place] [address] Care Team Providers Care Audiometrist Name Role Phone Unavailable Primary Care Provider Unavailabl e Source Comments [facility],non-owned Affiliates and Associated Physician Practices is amultiple site organization consisting of ambulatory clinics and hospital sitesin [place], [place], [place] and [place]. This disclosure is being madepursuant to the Care Everywhere program and may not contain all information available regarding this patient. Last updated 18.[facility] [employer] Social History Tobacco Use Types Packs/Day Years Used Date Smoking Tobacco: Never Assessed Comments Unknown Sex and Gender Information Value Date Recorded Sex Assigned at Not on file Legal Sex Female 6:16 AM INVESTMENT BANKING MANAGER Gender Identity Not on file Sexual [...] - 1-dose 75+ series) 2021 DEPRESSION SCREENING 07/27/2024 COVID-19 VACCINE ( - 2023-2 5 season) 2025 INFLUENZA VACCINE (#1) 2025 HEPATITIS B VACCINE Aged Out No [...]
--- OUTSIDE RECORDS SUMMARY | 2025-04-04 17:08 | XMS_ITS | Clinical Summary ---
Author Organization [facility] Address [address] [place] [address] Care Team Providers Care Cutting Machine Tender Helper Name Role Phone Unavailable Primary Care Provider [...] on file Legal Sex Female 5:17 AM HEREDITARY CANCER PROGRAM COORDINATOR Gender Identity Not on file Sexual Orientation Not on file Last Filed Vital Signs Vital Sign Reading Time Taken Comments Blood Pressure 128/76 09/07/2019 3:08 PM HEREDITARY CANCER PROGRAM COORDINATOR Pulse 72 09/07/2019 3:08 PM HEREDITARY CANCER PROGRAM COORDINATOR Temperature 36.3 C (97.3 F) 03/30/2012 2:13 PM CDT Respiratory Rate 14 09/07/2019 3:08 PM HEREDITARY CANCER PROGRAM COORDINATOR Oxygen Saturation - - Inhaled Oxygen Concentration - - Weight 77.6 kg (171 lb) 09/07/2019 3:08 PM HEREDITARY CANCER PROGRAM COORDINATOR Height 170.2 cm (5' 7) 09/07/2019 3:08 PM HEREDITARY CANCER PROGRAM COORDINATOR Body Mass Index 26.78 09/07/2019 3:08 PM HEREDITARY CANCER PROGRAM COORDINATOR Plan of Treatment Health Maintenance Due Date Last Done Comments DTAP/TDAP/TD VACCINES (1 - Tdap) 1965 OSTEOPOROSIS SCREENING 08/23/2017 08/23/2015, 2009 RSV VACCINE (60+ or ) (1 - 1-dose 75+ series) 2021 INFLUENZA VACCINE (#1) 2025 0, 05/03/2019, 05/04/2018, Additional history exists COLORECTAL [...]
[2025-04-04 17:41] LABS: Hemoglobin A1C 5.2 % (<5.7)
== END 2025-04-04 16:13 | disposition home or self-care (01) ==
PROVIDERS: PCP Internal Medicine; Visit Provider Internal Medicine
DX: E78.5 Hyperlipidemia, unspecified (principal); I10 Essential (primary) hypertension; E55.9 Vitamin D deficiency, unspecified; R73.03 Prediabetes
CPT/HCPCS: 36415; 80048; 80061; 82306; 83036; 85025